=== PATIENT | female | born 1980 | race Caucasian/White ===

== ENCOUNTER 2023-08-11 10:09 | Observation (INO) | payer OTHER, SELFPAY ==
[2023-08-11 11:27] VITALS: BP 145/91; PULSE 92; RESP 16; TEMP 36.7; O2SAT 99; BMI 24.4
--- NOTE | 2023-08-11 12:16 | XR_ITS ---
The [address] [address] Patient Name: KRISTINE MADDEN MRN: [id number] date: 1980 Sex: F Assigned Patient Location: [place] Current Patient Location: MS Accession/Order Number: [id number] Exam Date: 08/11/2023 13:00 Report Date: 08/11/2023 13:44 At the request of: ARLETH ACHARYA Procedure: XR abdomen 1V EXAMINATION: XR abdomen 1V HISTORY: kidney stone protocol COMPARISON: No relevant comparison available. FINDINGS: KIDNEY/URETER - RIGHT: No visible renal or ureteral calcifications. KIDNEY/URETER - LEFT: No visible renal or ureteral calcifications. PELVIS: No visible ureteral calcifications. Any visible calcifications favor phleboliths. BOWEL: No abnormal dilation or deviation. Large amount of stool throughout the colon BONES: No acute abnormality. OTHER: Right lower quadrant neurostimulator device. No abnormal gaseous collections. XR/XR abdomen 1V IMPRESSION: No definite urinary tract calculi Electronically authenticated by: CARISSA JOHN Date: 08/11/2023 13:44
[2023-08-11] MEDS: HYOSCYAMINE SULFATE 0.125 MG TAB.SUBL SL (13:28)
[2023-08-11] MEDS: ONDANSETRON 4 MG RAPDIS TABLET PO (13:28)
[2023-08-11] MEDS: ACETAMINOPHEN 500 MG TABLET 1000 MG PO (13:28)
[2023-08-11] MEDS: TRAMADOL HCL 50 MG TABLET PO (13:28)
[2023-08-11] MEDS: 0.9 % SODIUM CHLORIDE 1,000 ML 1000 ML IV ×2 (13:28→14:32)
[2023-08-11 13:35] LABS: BUN Creatinine Ratio 17.9; Calcium 8.9 mg/dL (8.5-10.1); Carbon Dioxide 24.8 mmol/L (21.0-32.0); Chloride 102 mmol/L (98-107); Estimated GFR (African America >60 (>=60); Estimated GFR (Non-African Ame >60 (>=60); Glucose 75 mg/dL (74-106); Potassium 3.8 mmol/L (3.5-5.1); Sodium 138 mmol/L (136-145)
[2023-08-11 13:44] LABS: Lactate/Lactic Acid 0.6 mmol/L (0.4-2.0)
[2023-08-11 13:52] LABS: Basophils Percent Auto 0.3 % (0.2-2.0); Eosinophils Absolute Auto 0.1 10^3/uL (0.0-0.7); Eosinophils Percent Auto 0.8 % (0.9-7.0); Hematocrit 38.2 % (36.0-48.0); Hemoglobin 12.1 g/dL (12.0-16.0); Immature Granulocytes Abs Auto 0.01 10^3/uL (0.00-0.03); Immature Granulocytes Pct Auto 0.2 % (0.0-0.5); Lymphocytes Absolute Auto 2.6 10^3/uL (1.2-3.8); Lymphocytes Percent Auto 43.8 % (20.5-60.0); Mean Corpuscular HGB Conc 31.7 g/dL (29.9-35.2); Mean Corpuscular Hemoglobin 26.8 pg (26.7-34.0); Mean Corpuscular Volume 84.5 fL (81.0-99.0); Mean Platelet Volume 9.3 fL (9.5-13.5); Monocytes Absolute Auto 0.3 10^3/uL (0.3-0.8); Monocytes Percent Auto 4.2 % (1.7-12.0); Neutrophils Percent Auto 50.7 % (43.0-75.0); Platelet Count 220 10^3/uL (150-450); Red Blood Count 4.52 10^6/uL (4.20-5.40); Red Cell Distribution Width 21.3 % (11.0-15.0)
[2023-08-11] MEDS: LACTATED RINGER'S SOLUTION 1,000 ML 100 ML IV (14:32)
[2023-08-11] MEDS: HYDROMORPHONE HCL 0.5 MG/0.5 ML SYRINGE IV ×3 (14:33→23:57)
[2023-08-11] MEDS: PROMETHAZINE HCL 25 MG/ML VIAL IV ×2 (14:33→20:37)
[2023-08-11 14:37] VITALS: BP 138/87; PULSE 83; RESP 18; TEMP 36.6; O2SAT 98
[2023-08-11 17:00] VITALS: O2SAT 97
[2023-08-11 20:17] VITALS: O2SAT 97
[2023-08-11 21:16] VITALS: BP 138/94; PULSE 73; RESP 18; TEMP 36.4; O2SAT 97
[2023-08-11] MEDS: AMITRIPTYLINE HCL 50 MG TABLET PO (21:34)
[2023-08-11] MEDS: TIZANIDINE HCL 4 MG TABLET PO (21:34)
[2023-08-11 21:47] LABS: Bilirubin Urine NEGATIVE (NEGATIVE); Blood Urine NEGATIVE (NEGATIVE); Clarity Urine CLEAR (CLEAR); Color Urine YELLOW (YELLOW); Glucose Urine UA NEGATIVE (NEGATIVE); Ketones Urine NEGATIVE (NEGATIVE); Leukocyte Esterase Urine NEGATIVE (NEGATIVE); Nitrite Urine NEGATIVE (NEGATIVE); Protein Urine NEGATIVE (NEG/TRACE); Specific Gravity Urine >=1.030 (1.005-1.025); Urobilinogen Urine 0.2 EU/dL (0.2-1.0); pH Urine 5.5 (5.0-9.0)
[2023-08-11 22:06] LABS: Bacteria Urine NONE SEEN #/HPF (NONE SEEN); Cast Seen? NONE SEEN #/LPF (NONE SEEN); Crystals Seen? None Seen #/HPF (None Seen); Mucus Urine NONE SEEN (NONE SEEN); RBC Urine 0-2 #/HPF (0-2); Squamous Epithelial Cell Urine FEW #/LPF (NONE/RARE); WBC Urine NONE SEEN #/HPF (NONE SEEN)
[2023-08-12] MEDS: LACTATED RINGER'S SOLUTION 1,000 ML 100 ML IV
[2023-08-12] MEDS: PROMETHAZINE HCL 25 MG/ML VIAL IV ×2 (04:03→10:59)
[2023-08-12] MEDS: HYDROMORPHONE HCL 0.5 MG/0.5 ML SYRINGE IV ×2 (04:03→08:24)
[2023-08-12 05:54] VITALS: BP 150/72; PULSE 66; RESP 18; TEMP 36.4; O2SAT 98
[2023-08-12 05:57] LABS: Basophils Percent Auto 0.2 % (0.2-2.0); Eosinophils Absolute Auto 0.1 10^3/uL (0.0-0.7); Eosinophils Percent Auto 1.2 % (0.9-7.0); Hematocrit 34.4 % (36.0-48.0); Hemoglobin 10.7 g/dL (12.0-16.0); Immature Granulocytes Abs Auto 0.01 10^3/uL (0.00-0.03); Immature Granulocytes Pct Auto 0.2 % (0.0-0.5); Lymphocytes Absolute Auto 2.3 10^3/uL (1.2-3.8); Lymphocytes Percent Auto 55.1 % (20.5-60.0); Mean Corpuscular HGB Conc 31.1 g/dL (29.9-35.2); Mean Corpuscular Hemoglobin 26.7 pg (26.7-34.0); Mean Corpuscular Volume 85.8 fL (81.0-99.0); Monocytes Absolute Auto 0.2 10^3/uL (0.3-0.8); Monocytes Percent Auto 5.9 % (1.7-12.0); Neutrophils Absolute Auto 1.5 10^3/uL (1.4-6.5); Neutrophils Percent Auto 37.4 % (43.0-75.0); Platelet Count 160 10^3/uL (150-450); Red Blood Count 4.01 10^6/uL (4.20-5.40); White Blood Count 4.1 10^3/uL (4.0-11.0)
[2023-08-12 06:07] LABS: Anion Gap 7.7; BUN Creatinine Ratio 16.4; Calcium 8.3 mg/dL (8.5-10.1); Carbon Dioxide 29.1 mmol/L (21.0-32.0); Chloride 104 mmol/L (98-107); Estimated GFR (African America >60 (>=60); Estimated GFR (Non-African Ame >60 (>=60); Glucose 67 mg/dL (74-106); Potassium 3.8 mmol/L (3.5-5.1); Sodium 137 mmol/L (136-145)
--- NOTE | 2023-08-12 07:17 | P.PN_ITS ---
Progress Note: Subjective Subjective Interval history: Flank pain persisting. No further emesis but some nausea. Exam Constitutional Vital Signs, click to edit/add: Last Vital Signs Temp 97.5 F L 08/12/23 05:54 Pulse 66 08/12/23 05:54 Resp 18 08/12/23 05:54 BP 150/72 H 08/12/23 05:54 Pulse Ox 98 08/12/23 05:54 O2 Del Method Room Air 08/12/23 05:54 Documenting provider has reviewed patient's vital signs: yes Common normals: apparent distress (Moderate painful distress) HENMT Common normals: oral mucous membranes not moist Respiratory Common normals: normal respiratory effort, no retractions and no use of accessory muscles Cardio Common normals: regular rate and regular rhythm GI Common normals: Normal to inspection, nondistended, normoactive bowel sounds present Progress Note: Objective Labs Labs: Short CBC 08/11/23 08/12/23 Range/Units 13:46 05:14 WBC 6.0 4.1 (4.0-11.0) 10^3/uL Hgb 12.1 10.7 L (12.0-16.0) g/dL Hct 38.2 34.4 L (36.0-48.0) % Plt Count 220 160 (150-450) 10^3/uL BMP 08/11/23 08/12/23 12:55 05:14 Sodium 138 137 Potassium 3.8 3.8 Chloride 102 104 Carbon Dioxide 24.8 29.1 BUN 12.0 11.0 Creatinine 0.67 0.67 Glucose 75 67 L Calcium 8.9 8.3 L Urine 08/11/23 Range/Units 21:38 Urine Color Yellow (YELLOW) Urine Clarity Clear (CLEAR) Urine pH 5.5 (5.0-9.0) Ur Specific [place] >=1.030 A (1.005-1.025) Urine Protein Negative (NEG/TRACE) mg/dL Urine Glucose (UA) Negative (NEGATIVE) mg/dL Progress Note: A&P Assessment and Plan (1) Acute pain: (2) Dehydration: (3) Kidney stone: Plan Admitted with failed outpatient treatment of right sided 3 mm nephrolithiasis. This was found on CT scan at outside facility. KUB here repeated yesterday did not find the stone. With flank pain persisting we will check CT scan again here. Not great urine output so far. We will repeat fluid bolus. Significant dehydration on admission. Mild anemia-likely this is her baseline. History gastric bypass so she probably runs on the low side. Mild hypoglycemia this morning. No symptoms. Maintain observation status, patient with persisting pain. Stone evaluation as above. Maintain current medications.
--- NOTE | 2023-08-12 07:45 | CT_ITS ---
[address] [address] Patient Name: KRISTINE MADDEN MRN: [id number] date: 1980 Sex: F Assigned Patient Location: MS Current Patient Location: MS Accession/Order Number: [id number] Exam Date: 08/12/2023 07:41 Report Date: 08/12/2023 08:03 At the request of: ARLETH ACHARYA Procedure: CT abdomen pelvis wo con EXAMINATION: CT abdomen pelvis wo con HISTORY: kidney stone COMPARISON: 01/25/2023 TECHNIQUE: Axial, Coronal, and Sagittal images were created without IV contrast. Dose reduction techniques were achieved by using automated exposure control and/or adjustment of mA and/or kV according to patient size and/or use of iterative reconstruction technique. FINDINGS: LUNG BASES: No visible pulmonary or pleural disease. LIVER: No enlargement, atrophy, abnormal density, or significant focal lesion. BILIARY: Surgical clips from cholecystectomy PANCREAS: No lesion, fluid collection, ductal dilatation, or atrophy. SPLEEN: No enlargement or focal lesion. ADRENALS: No mass or enlargement. KIDNEYS: [Nonobstructing 5 mm nephrolith. No hydronephrosis or obstructing stones observed BOWEL/MESENTERY: Prior gastric surgery. Suture line left mid abdominal small bowel loops. Overall nonobstructive bowel gas pattern. Small amount of free pelvic fluid, nonspecific AORTA/VASCULAR: No aneurysm or dissection. RETROPERITONEUM: No mass or adenopathy. LYMPH NODES: No adenopathy. URINARY BLADDER: No visible focal wall thickening, lesion, or calculus. PELVIC ORGANS: Hysterectomy ABDOMINAL WALL: No mass or hernia. BONES: No bony lesion or fracture. OTHER: Right flank implanted neurostimulator device CT/CT abdomen pelvis wo con IMPRESSION: Left nonobstructing nephrolithiasis No obstructive uropathy Electronically authenticated by: CARISSA JOHN Date: 08/12/2023 08:03
[2023-08-12 07:54] VITALS: RESP 18
[2023-08-12 08:02] VITALS: O2SAT 96
[2023-08-12] MEDS: HYOSCYAMINE SULFATE 0.125 MG TAB.SUBL SL (08:24)
[2023-08-12] MEDS: 0.9 % SODIUM CHLORIDE 1,000 ML 1000 ML IV ×2 (08:34→09:51)
[2023-08-12 08:51] LABS: Alanine Aminotransferase 22 U/L (14-59); Albumin Globulin Ratio 1.1; Albumin Level 3.2 g/dL (3.4-5.0); Alkaline Phosphatase 88 U/L (46-116); Amylase 45 U/L (25-115); Aspartate Amino Transferase 21 U/L (15-37); Bilirubin Direct 0.1 mg/dL (0.0-0.2); Bilirubin Total 0.3 mg/dL (0.2-1.0); Total Protein 6.2 g/dL (6.4-8.2)
[2023-08-12 10:00] VITALS: O2SAT 98
--- NOTE | 2023-08-13 15:06 | CM.DCFOLLOWU ---
1st attempt discharge follow up call made by Christiano Moseley on 08/13/23, no answer at this time
== END 2023-08-12 11:25 | disposition home or self-care (01) ==
PROVIDERS: Admitting Provider Family Medicine; PCP Family Medicine; Visit Provider Family Medicine
DX: E86.0 Dehydration (principal); D64.9 Anemia, unspecified; E16.2 Hypoglycemia, unspecified; N20.0 Calculus of kidney; R10.9 Unspecified abdominal pain; Z98.84 Bariatric surgery status; Z90.710 Acquired absence of both cervix and uterus; Z96.652 Presence of left artificial knee joint; Z87.891 Personal history of nicotine dependence; Z79.899 Other long term (current) drug therapy; Z86.16 Personal history of COVID-19; I10 Essential (primary) hypertension
CPT/HCPCS: 36415; 74018; 74176; 80048; 80076; 81001; 82150; 83605; 83690; 85025; 87040; 87086; 94761; 96361; 96374; 96375; 96376; G0378; G0379; J1170

== ENCOUNTER 2023-08-18 12:50 | Outpatient (OUT) | payer OTHER, SELFPAY ==
--- NOTE | 2023-08-18 13:00 | US_ITS ---
The [place] [address] Patient Name: KRISTINE MADDEN MRN: [id number] date: 1980 Sex: F Assigned Patient Location: US Current Patient Location: US Accession/Order Number: [id number] Exam Date: 08/18/2023 13:01 Report Date: 08/18/2023 14:13 At the request of: ARLETH ACHARYA Procedure: US renal bladder US renal bladder, 08/18/2023 1:01 PM EST INDICATION: Kidney Stone N20.0 COMPARISON: CT of abdomen dated 08/12/2023 FINDINGS: The kidneys measure 9.5 x 4.2 x 5.2 cm on the right and 9.3 x 4.3 x 5 cm on the left side. No hydronephrosis is noted. Normal vascularity of kidneys. Stable nonobstructing nephrolithiasis in the inferior pole of the left kidney measuring 6.7 x 6.5 x 4 mm. The visualized portion of the urinary bladder is unremarkable. Nonspecific ureteral jet is noted. The urinary bladder wall measures 3.3 mm The prevoid volume of the urinary bladder is 417.8 cc. The post void residual was not recorded by technical error. US/US renal bladder IMPRESSION: Stable nephrolithiasis in the inferior pole of the left kidney. Electronically authenticated by: KHALIDA CESAR Date: 08/18/2023 14:13
--- OUTSIDE RECORDS SUMMARY | 2023-09-28 14:32 | XMS_ITS | CCD ---
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 Name Role Phone DASHAWN ZHANE W Unavailable Unavailable Hoy, Arleth Dax Unavailable Unavailable TAMEZ, ZHANE W Unavailable Unavailable Hoy, Arleth Dax Unavailable Unavailable TAMEZ, ZHANE W Unavailable Unavailable Hoy, Arleth Dax Unavailable Unavailable TAMEZ, ZHANE W Unavailable Unavailable Hoy, Arleth Dax Unavailable Unavailable TAMEZ, ZHANE W Unavailable Unavailable TamezZhane~ Unavailable Unavailabl e Hoy, Arleth Dax Unavailable Unavailable TAMEZ, ZHANE W Unavailable Unavailable Hoy, Arleth Dax Unavailable Unavailable Rima Sparrow Unavailable Unavailable Hoy, Arleth Dax Unavailable Unavailable Rima Sparrow Unavailable Unavailable Hoy, Arleth Dax Unavailable Unavailable TAMEZ, ZHANE W Unavailable Unavailable Hoy, Arleth Dax Unavailable Unavailable TAMEZZHANE MI Unavailable Unavailable TAMEZZHANE MI Unavailable Unavailable HOY, ARLETH M Unavailable Unavailable HOY, ARLTEH M Unavailable Unavailable HOY, ARLETH M Unavailable Unavailable DAX KINNEY Unavailable Unavailab le HOY, ARLETH M Unavailable Unavailable IVANAUSKAS, SAULIUS Unavailable Unavailable HOY, ARLETH M Unavailable Unavailable FARHAD CHAUDHRY Unavailable Unavailable Kevin Lane Referring Unavailable Kevin Lane Attending Unavailable Kevin Lane Admitting Unavailable HOY, ARLETH Primary Care Unavailable Kevin Lane Referring Unavailable Kevin Lane Attending Unavailable Kevin Lane Admitting Unavailable HOY, ARLETH Primary Care Unavailable Kevin Lane Attending Unavailable Kevin Lane Admitting Unavailable HOY, ARLETH Primary Care Unavailable HOY, ARLETH Referring Unavailable Gehling, Kevin Admitting Unavailable GehlingKevin Attending Unavailable HOY, ARLETH Primary Care Unavailable HOY, ARLETH Referring Unavailable HOY, ARLETH Primary Care Unavailable STEENHOFF, ARIADNE Admitting Unavailable STEENHOFF, ARIADNE Attending Unavailable SELF, REFERRED Referring Unavailable GeocingKevin Attending Unavailable Gehling, Kevin Admitting Unavailable NASIR THACKER Referring Unavailable HOY, ARLETH Primary Care Unavailable MadayingKevin Attending Unavailable Gehling, Kevin Admitting Unavailable HOY, ARLETH Primary Care Unavailable HOY, ARLETH Referring Unavailable Gehling, Kevin Referring Unavailable Gehling, Kevin Attending Unavailable Gehling, Kevin Admitting Unavailable SELF, REFERRED Primary Care Unavailable Geocing, Kevin Referring Unavailable GehlingPepeel Attending Unavailable Gehling, Kevin Admitting Unavailable SELF, REFERRED Primary Care Unavailable SELF, REFERRED Primary Care Unavailable FORSRAMIROY, JORDEN D Admitting Unavailable MARY GRACE, JORDEN D Attending Unavailable SELF, REFERRED Referring Unavailable SELF, REFERRED Primary Care Unavailable FORSHEY, JORDEN D Admitting Unavailable FORSHEY, JORDEN D Attending Unavailable SELF, REFERRED Referring Unavailable SELF, REFERRED Referring Unavailable MadayingKevin Attending Unavailable Gehling, Kevin Admitting Unavailable SELF, REFERRED Primary Care Unavailable Gehling, Kevin Admitting Unavailable Gehling, Kevin Attending Unavailable HOY, ARLETH Primary Care Unavailable HOY, ARLETH Referring Unavailable Gehling, Kevin Attending Unavailable Gehling, Kevin Admitting Unavailable SELF, REFERRED Primary Care Unavailable SELF, REFERRED Referring Unavailable SELF, REFERRED Primary Care Unavailable FORSHEY, JORDEN D Admitting Unavailable FORSRAMIROY, JORDEN D Attending Unavailable SELF, REFERRED Referring Unavailable SELF, REFERRED Primary Care Unavailable Madaying, Kevin Attending Unavailable Gehling, Kevin Admitting Unavailable SELF, REFERRED Referring Unavailable Tariky Arleth Primary Care Physician [phone] ROS[address] ., DR ORTIZ Consulting Unavailable NICK YOO Primary Care Unavailable HAWKINS ., DR ORTIZ Admitting Unavailable HAWKINS ., DR ORTIZ Attending Unavailable HOY ., DR REINOSO Consulting Unavailable HOY ., DR REINOSO Attending Unavailable HOY ., DR REINOSO Primary Care Unavailable HOY ., DR REINOSO Admitting Unavailable HAWKINS ., DR ORTIZ Admitting Unavailable HAWKINS ., DR ORTIZ Consulting Unavailable FREDO, NICK Primary Care Unavailable HAWKINS ., DR ORTIZ Attending Unavailable HAWKINS ., DR ORTIZ Consulting Unavailable HOY ., DR REINOSO Primary Care Unavailable PAY ., DR STILL Admalphonse Unavailable PAY ., DR STILL Attending Unavailable ZIEBER, DR RUSSELL Goss Consulting Unavailable PAY ., DR STILL Consulting Unavailable HAWKINS ., DR ORTIZ Admitting Unavailable HAWKINS ., DR ORTIZ Consulting Unavailable HAWKINS ., DR ORTIZ Attending Unavailable HOY ., DR REINOSO Primary Care Unavailable HAWKINS ., DR ORTIZ Consulting Unavailable FREDO, NICK Primary Care Unavailable HAWKINS ., DR ORTIZ Admalphonse Unavailable HAWKINS ., DR ORTIZ Attending Unavailable FREDO, NICK Primary Care Unavailable HOY ., DR REINOSO Attending Unavailable HOY ., DR REINOSO Admitting Unavailable FREDO, NICK Primary Care Unavailable HOY ., DR REINOSO Attending Unavailable HOY ., DR REINOSO Admalphonse Unavailable HOY ., DR REINOSO Admalphonse Unavailable HOY ., DR REINOSO Primary Care Unavailable HOY ., DR REINOSO Consulting Unavailable HOY ., DR REINOSO Attending Unavailable ZIEBER, DR RUSSELL Goss Consulting Unavailable FREDO, NICK Primary Care Unavailable FREDO, NICK Attending Unavailable FREDO, NICK Admitting Unavailable ZIEBER, DR RUSSELL Goss Consulting Unavailable FREDO, NICK Consulting Unavailable HOY ., DR REINOSO Consulting Unavailable HOY ., DR REINOSO Admalphonse Unavailable HOY ., DR REINOSO Primary Care Unavailable HOY ., DR REINOSO Attending Unavailable HOY ., DR REINOSO Admalphonse Unavailable HOY ., DR REINOSO Primary Care Unavailable HOY ., DR REINOSO Consulting Unavailable HOY ., DR REINOSO Attending Unavailable DENILSON AUSTIN Consulting Unavailable HOY ., DR REINOSO Consulting Unavailable HOY ., DR REINOSO Attending Unavailable HOY ., DR REINOSO Primary Care Unavailable HOY ., DR REINOSO Admalphonse Unavailable HAWKINS ., DR ORTIZ Admalphonse Unavailable HAWKINS ., DR ORTIZ Consulting Unavailable HAWKINS ., DR ORTIZ Attending Unavailable HOY ., DR REINOSO Primary Care Unavailable GAVINO PIERSON Consulting Unavailable NAZIA VASQUEZ Consulting Unavailable LONI ., ENEDINA Attending Unavailable LONI ., ENEDINA Admitting Unavailable HOY ., DR REINOSO Primary Care Unavailable ZIEBER, DR RUSSELL Goss Consulting Unavailable LONI ., ENEDINA Consulting Unavailable GENNA HEATON Attending Unavailable GENNA HEATON Admitting Unavailable PATRIZIA ., DR REINOSO Primary Care Unavailable GENNA HEATON Consulting Unavailable RONDA, VEDA Consulting Unavailable HOY ., DR REINOSO Primary Care Unavailable HOY ., DR REINOSO Admitting Unavailable HOY ., DR REINOSO Attending Unavailable HAWKINS ., DR ORTIZ Consulting Unavailable NICK YOO Primary Care Unavailable HAWKINS ., DR ORTIZ Admitting Unavailable HAWKINS ., DR ORTIZ Attending Unavailable JORDEN ECHOLS Consulting Unavailable MARAH CHATMAN Consulting Unavailable MD Arleth Acharya Primary Care Provider [phone] MD Arleth Acharya Referring Provider DO Calderón Attending Provider Osiris Calderón Admitting Unavail able Osiris Calderón Attending Unavail able Arleth Acharya Referring Unavailable Arleth Acharya Primary Care Unavailable JORDEN BRODY Attending Unavailable CARMEN, ARJUN Attending Unavailable MINER, ARJUN Attending Unavailable MINER, ARJUN Referring Unavailable MINER, ARJUN Attending Unavailable MINER, ARJUN Referring Unavailable ANGELARUKHSANA Attending Unavailable ALEYDA MIN Referring Unavailable MINER, ARJUN Referring Unavailable MINER, ARJUN Referring Unavailable JORDEN BRODY Referring Unavailable MINER, ARJUN Referring Unavailable MINER, ARJUN Attending Unavailable MINER, ARJUN Attending Unavailable MINER, ARJUN Attending Unavailable MANTDUSTY THOMAS Referring Unavailable MANTWILLIAM, DUSTY Referring Unavailable MINER, ARJUN Referring Unavailable KEVIN LANE Attending Unavailable JORDEN BRODY Attending Unavailable CARMEN, ARJUN Admitting Unavailable MINER, ARJUN Attending Unavailable ANGELA, RUKHSANA Attending Unavailable ANGELA, RUKHSANA Attending Unavailable MINER, ARJUN Attending Unavailable MINER, ARJUN Attending Unavailable Diana HAWKINS Attending Unavailable Arleth Acharya Referring Unavailable HAWKINS, Diana Goss Attending Unavailable HAWKINS, Diana Goss Attending Unavailable HAWKINS, Diana R Attending Unavailable HAWKINS, Diana Goss Attending Unavailable Allergies Allergy Classification Reported Allergen(s) Allergy Type Date of Onset Reaction(s) Facility (7 sources) ketorolac; Translations: [Toradol] Drug Allergy 05-29-20 15 Unknown (qualifier value) [facility] Repository (5 sources) meperidine; Translations: [Demerol HCl] Drug Allergy [facility] Repository (2 sources) Meperidine Drug Allergy 08-01-20 13 [facility] Repository (1 source) Desonide Drug Allergy [facility] Repository (3 sources) Ketorolac; Translations: [ketorolac] Drug Allergy 11-22-19 22 Unknown Reaction [facility] (3 sources) Meperidine; Translations: [meperidine] Drug Allergy 08-01-20 13 Unknown Reaction [facility] (1 source) Desonide; Translations: [DESONIDE] Drug Allergy 01-09-20 21 [facility] Repository (2 sources) Prochlorperazin e; Translations: [PROCHLORPERAZI NE] Drug Allergy 02-12-20 23 Hallucinations (finding) [facility] Repository (1 source) Prochlorperazin e; Translations: [Compazine] Drug Allergy [facility] Repository (1 source) No Known Medication Allergies; Translations: [No Known Medication Allergies] Propensity to adverse reactions (disorder) [facility] Repository Medications Current Medications Medication Drug Class(es) Dates Sig (Normalized) Sig (Original) acetaminophen 325 mg / HYDROcodone bitartrate 5 mg oral tablet (3 sources) Opioid Agonist Start: 05-27-2023 take 1 tablet by mouth twice daily Hydrocodone-Aceta minophen Active 1 TAB PO Twice daily May 27, 2023 12:00am Start: 07-27-2022 Wade 325 mg-5 mg oral tablet 1 tab(s), Oral, BID Pain 8-10, 20 tab(s), Refill(s) 0, [id number], 167, cm, 06/29/22 9:28:00 EDT, Height/Length Dosing, 69, kg, 06/29/22 9:28:00 EDT, Weight Dosing Start Date: 07/27/22 Status: Ordered Start: 06-29-2022 take 1 tablet by mary th every six hours Wade 325 mg-5 mg oral tablet tab(s), Oral, q6hr, Refill(s) 0 Start Date: 06/29/22 Status: Ordered amitriptyline hydrochloride 50 mg oral tablet (4 sources) Tricyclic Antidepressant Start: 05-27-2023 take 50 mg by mouth once daily at bedtime Amitriptyline Active 50 MG PO Daily at bedtime May 27, 2023 12:00am Start: 06-29-2022 take 1 mg by mouth o nce daily at bedtime amitriptyline 25 mg Tab mg tab(s), Oral, Once a day (at bedtime), Refills(s) 0 Start Date: 06/29/22 Status: Ordered calcium acetate (3 sources) Start: 06-29-2022 calcium acetate mg, Oral, Refills(s) 0 Start Date: 06/29/22 Status: Ordered calcium carbonate 1500 mg / cholecalciferol 200 unt oral tablet (1 source) Vitamin D Start: 05-27-2023 take 1 tablet by mouth once daily Calcium Carbonate-Vitamin D3 (Calcium + D) 600 mg-5 mcg (200 unit) Tablet Active 1 TAB PO Daily May 27, 2023 12:00am citalopram 40 mg oral tablet (2 sources) Serotonin Reuptake Inhibitor Start: 10-23-2014 take 40 mg by mouth once daily Celexa 40 mg, Oral, Daily, Refills(s) 0, Depression Start Date: 10/23/14 Status: Ordered metoclopramide 10 mg oral tablet (1 source) Dopamine-2 Receptor Antagonist Start: 05-27-2023 Metoclopramide Hcl (Reglan) 10 mg Tablet Active 10 MG PO As Directed May 27, 2023 12:00am Multivitamin (Multiple Vitamin) Tablet (1 source) Start: 05-27-2023 take 1 tablet by mouth once daily Multivitamin (Multiple Vitamin) Tablet Active 1 TAB PO Daily May 27, 2023 12:00am Multivitamin preparation (3 sources) Start: 06-29-2022 multivitamin Daily, Refill(s) 0 Start Date: 06/29/22 Status: Ordered oxyCODONE hydrochloride 5 mg oral tablet (1 source) Opioid Agonist Start: 09-13-2023 oxyCODONE 5 mg Tab Refills(s) 0 Start Date: 09/13/23 Status: Ordered pantoprazole 40 mg delayed release oral tablet (4 sources) Proton Pump Inhibitor Start: 05-27-2023 take 1 tablet by mouth once daily Pantoprazole (Protonix) 40 mg Tablet,Delayed Release (Dr/Ec) Active 40 MG PO Daily May 27, 2023 12:00am Start: 10-23-2014 take 40 mg by mouth once daily pantoprazole 40 mg, Oral, Daily, Refills(s) 0, Control of stomach acid Start Date: 10/23/14 Status: Ordered promethazine hydrochloride 25 mg oral tablet (4 sources) Phenothiazine Start: 05-27-2023 take 25 mg by mouth every four to six hours Promethazine Active 25 MG PO EVERY 4-6 HOURS May 27, 2023 12:00am Start: 06-29-2022 take 1 mg rectal rou te every six hours promethazine 25 mg Supp mg supp, Rectal, q6hr, Refills(s) 0 Start Date: 06/29/22 Status: Ordered sucralfate 1000 mg oral tablet (1 source) Aluminum Complex Start: 05-27-2023 take 1 tablet by mouth four times daily Sucralfate (Carafate) 1 gram Tablet Active 1 GM PO Four times daily May 27, 2023 12:00am SUMAtriptan 100 mg oral tablet (1 source) Serotonin-1b and Serotonin-1d Receptor Agonist Start: 09-13-2023 SUMAtriptan 100 mg Tab Refills(s) 0 Start Date: 09/13/23 Status: Ordered tiZANidine 4 mg oral tablet (4 sources) Central alpha-2 Adrenergic Agonist Start: 05-27-2023 take 8 mg by mouth once daily at bedtime Tizanidine Active 8 MG PO Daily at bedtime May 27, 2023 12:00am Start: 06-29-2022 take 1 mg by mouth t hree times daily Zanaflex 4 mg oral capsule mg cap(s), Oral, TID, Refills(s) 0 Start Date: 06/29/22 Status: Ordered vitamin b12 1 mg/ml injectable solution (4 sources) Vitamin B12 Start: 05-27-2023 inject 1000 ug by intramuscular injection every 30 days Cyanocobalamin (Vitamin B-12) Active 1000 MCG IM Q30D May 27, 2023 12:00am Start: 06-29-2022 Vitamin B12 Re fills(s) 0 Start Date: 06/29/22 Status: Ordered Completed/Discontinued Medications Medication Drug Class(es) Dates Sig (Normalized) Sig (Original) ferrous sulfate 325 mg oral tablet (1 source) Start: 05-27-2023 End: 05-28-2023 take 325 mg by mouth once daily Ferrous Sulfate Discontinued 325 MG PO Daily May 27, 2023 12:00am May 28, 2023 11:26am hyoscyamine sulfate 0.125 mg sublingual tablet (1 source) Start: 05-27-2023 End: 05-28-2023 take 0.125 mg under the tongue every six hours Hyoscyamine Sulfate Discontinued 0.125 MG SUBLINGUAL Q6H May 27, 2023 12:00am May 28, 2023 11:06am Problems Active Problems Problem Classification Problem Date Documented Da te Episodic/Chronic Abdominal pain (16 sources) Unspecified abdominal pain; Translations: [Abdominal pain] Onset: 06-13-2018 Episodic Anxiety disorders (4 sources) Anxiety; Translations: [Anxiety disorder, unspecified] Onset: 09-10-2022 06-26-2022 Chronic Calculus of urinary tract (14 sources) Calculus of kidney; Translations: [Kidney stone] Onset: 02-26-2018 Episodic Coagulation and hemorrhagic disorders (1 source) Hereditary factor VIII deficiency; 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] Onset: 06-28-2023 Chronic Complication of device; implant or graft (5 sources) Pain due to internal orthopedic prosthetic devices, implants and grafts, initial encounter; Translations: [PAIN DUE TO INTERNAL ORTHOPEDIC PROSTH DEV/GRFT, INIT] Onset: 06-01-2022 Episodic Complications of surgical procedures or medical care (1 source) Other complications of other bariatric procedure; Translations: [Other complications of other bariatric procedure] Onset: 06-28-2023 Episodic Deficiency and other anemia (1 source) Other iron deficiency anemias; Translations: [Other iron deficiency anemias] Onset: 06-28-2023 Episodic Essential hypertension (1 source) Essential (primary) hypertension; Translations: [ESSENTIAL PRIMARY HYPERTENSION] Onset: 01-27-2023 Chronic Genitourinary congenital anomalies (2 sources) Congenital occlusion of ureteropelvic junction; 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, unspecified] Onset: 08-05-2022 Chronic Genitourinary symptoms and ill-defined conditions (17 sources) Blood in urine; Translations: [Gross hematuria] Onset: 06-29-2022 Episodic Genitourinary symptoms and ill-defined conditions (1 source) Other microscopic hematuria; Translations: [Other microscopic hematuria] Onset: 02-26-2018 Mood disorders (4 sources) Depressive disorder; Translations: [Major depressive disorder, single episode, unspecified] Onset: 08-05-2022 06-26-2022 Chronic Mood disorders (1 source) Mood disorders; Translations: [DEPRESSION UNSPECIFIED] Onset: 01-27-2023 Nausea and vomiting (4 sources) Nausea with vomiting, unspecified; Translations: [Vomiting, unspecified] Onset: 01-25-2023 Episodic Osteoarthritis (7 sources) Unilateral primary osteoarthritis, left knee; Translations: [UNILATERAL PRIMARY OSTEOARTHRITIS, LEFT KNEE] Onset: 10-06-2021 Chronic Other aftercare (5 sources) Aftercare following joint replacement surgery; Translations: [AFTERCARE FOLLOWING JOINT REPLACEMENT SURGERY] Onset: 12-09-2021 Chronic Other aftercare (1 source) superintendent container terminal (current) use of aspirin; Translations: [DIGITAL MARKETING CONSULTANT (CURRENT) USE OF ASPIRIN] Onset: 06-03-2022 Episodic Other aftercare (2 sources) Other long-term (current) drug therapy; Translations: [OTHER DIGITAL MARKETING CONSULTANT (CURRENT) DRUG THERAPY] Onset: 08-12-2021 Episodic Other connective tissue disease (5 sources) Presence of left artificial knee joint; Translations: [PRESENCE OF LEFT ARTIFICIAL KNEE JOINT] Onset: 04-07-2022 Chronic Other connective tissue disease (3 sources) Presence of unspecified artificial knee joint; Translations: [PRESENCE OF UNSPECIFIED ARTIFICIAL KNEE JOINT] Onset: 03-24-2022 Chronic Other connective tissue disease (1 source) Muscle wasting and atrophy, not elsewhere classified, left lower leg; Translations: [MUSCLE WASTING AND ATROPHY, NEC, LEFT LOWER LEG] Onset: 04-07-2022 Episodic Other gastrointestinal disorders (1 source) Irritable bowel syndrome without diarrhea; Translations: [IRRITABLE BOWEL SYND W/O DIARRHEA] Onset: 01-27-2023 Chronic Other gastrointestinal disorders (1 source) Bariatric surgery status; Translations: [BARIATRIC SURGERY STATUS] Onset: 01-27-2023 Episodic Other nervous system disorders (2 sources) Complex regional pain syndrome I of left lower limb; Translations: [Complex regional pain syndrome i of left lower limb] Onset: 04-07-2023 Chronic Other nervous system disorders (2 sources) Other chronic postprocedural pain; Translations: [Other chronic postprocedural pain] Onset: 07-12-2022 Chronic Other nervous system disorders (2 sources) Other acute postprocedural pain; Translations: [Other acute postprocedural pain] Onset: 10-14-2017 Episodic Other non-traumatic joint disorders (1 source) Effusion, left knee; Translations: [EFFUSION, LEFT KNEE] Onset: 04-07-2022 Episodic Other nutritional; endocrine; and metabolic disorders (3 sources) Morbid obesity 10-24-2014 Chronic Other nutritional; endocrine; and metabolic disorders (2 sources) Morbid (severe) obesity due to excess calories; Translations: [Morbid (severe) obesity due to excess calories] Onset: 07-12-2022 Chronic Residual codes; unclassified (2 sources) Presence of other specified functional implants; Translations: [Presence of other specified functional implants] Onset: 06-01-2023 Chronic Residual codes; unclassified (1 source) Acquired absence of both cervix and uterus; Translations: [ACQUIRED ABSENCE BOTH CERVIX AND UTERUS] Onset: 01-27-2023 Episodic Residual codes; unclassified (1 source) Acquired absence of other specified parts of digestive tract; Translations: [ACQ ABSENCE OTH PART DIGESTV TRACT] Onset: 01-27-2023 Episodic Screening and history of mental health and substance abuse codes (2 sources) Personal history of nicotine dependence; Translations: [PERSONAL HISTORY OF NICOTINE DEPENDENCE] Onset: 06-01-2022 Episodic Sprains and strains (1 source) Strain of muscle, fascia and tendon of lower back, initial encounter; Translations: [Strain of muscle, fascia and tendon of lower back, initial encounter] Onset: 10-09-2018 Episodic Unclassified (1 source) C/O POST OP RECHECK - LEFT KNEE. Onset: 06-03-2022 Unclassified (1 source) C/O POST OP RECHECK - LEFT KNEE Onset: 06-03-2022 Unclassified (3 sources) Asymptomatic microscopic hematuria 06-29-2022 Unclassified (1 source) PERSONAL HISTORY OF COVID-19; Translations: [PERSONAL HISTORY OF COVID-19] Onset: 01-27-2023 Unclassified (4 sources) CONTACT W/AND (SUSP) EXPOS COVID-19; Translations: [CONTACT W/AND (SUSP) EXPOS COVID-19] Onset: 08-27-2022 Unclassified (1 source) COUGH, UNSPECIFIED; Translations: [COUGH, UNSPECIFIED] Onset: 09-24-2022 Unclassified (2 sources) Presence of neurostimulator; Translations: [Presence of neurostimulator] Onset: 05-04-2023 Urinary tract infections (4 sources) Urinary tract infection, site not specified; Translations: [UTI SITE NOT SPECIFIED] Onset: 01-21-2023 Episodic Viral infection (1 source) COVID-19; Translations: [COVID-19] Onset: 10-09-2022 Past or Other Problems Problem Classification Problem Date Documented Da te Episodic/Chronic Malaise and fatigue (1 source) Other fatigue; Translations: [OTHER FATIGUE] Onset: 10-07-2022 Episodic Other aftercare (3 sources) Encounter for other specified surgical aftercare; Translations: [ENCOUNTER FOR OTHER SPECIFIED SURGICAL AFTERCARE] Onset: 01-09-2022 Episodic Other non-traumatic joint disorders (6 sources) Pain in left knee; Translations: [PAIN IN LEFT KNEE] Onset: 06-03-2022 Episodic Other non-traumatic joint disorders (3 sources) Stiffness of left knee, not elsewhere classified; Translations: [STIFFNESS OF LEFT KNEE, NOT ELSEWHERE CLASSIFIED] Onset: 02-12-2022 Episodic Other non-traumatic joint disorders (1 source) Osteophyte, left knee; Translations: [OSTEOPHYTE, LEFT KNEE] Onset: 08-12-2021 Episodic Other upper respiratory disease (1 source) Nasal congestion; Translations: [NASAL CONGESTION] Onset: 09-24-2022 Episodic Other upper respiratory infections (1 source) Acute recurrent frontal sinusitis; Translations: [ACUTE RECURRENT FRONTAL SINUSITIS] Onset: 10-09-2022 Episodic Residual codes; unclassified (2 sources) Pain, unspecified; Translations: [Pain, unspecified] Onset: 04-28-2023 Episodic Unclassified (1 source) CONTACT W/AND (SUSP) EXPOS COVID-19; Translations: [CONTACT W/AND (SUSP) EXPOS COVID-19] Onset: 10-06-2022 Results Test Name Value Interpretation Reference Range Facil ity Lab Reportson 09-27-2023 Lab Reports [id number] IFF Normal [facility] OARRS Reporton 09-27-2023 OARRS Report [id number] TIFF [facility] Pre-Certification Formon Pre-Certification Form [id number] [facility] Provider Letteron 09-27-2023 Provider Letter (Inserted Image. Darleen ble to display) September 27, 2023 [place] [address] : 1980 To Whom It May Concern, Please excuse above patient from work. Date of Illness: From: 09/16/2023 To: 09/28/2023 May Return to Work On: 09/29/2023 Restrictions: No Restrictios Comments: _ Sincerely, [facility] [address] [place] [id number] [facility] Formson 09-22-2023 Forms [id number] FF [facility] RAD - MISCon 09-21-2023 RAD - MISC [id number] FF [facility] Provider Letteron 09-20-2023 Provider Letter (Inserted Image. Darleen ble to display) September 20, 2023 ELVIJAIRO MOORE [address] [place] [id number] : 1980 To Whom It May Concern, Please excuse above patient from work. Date of Illness: From: 09/16/23 To: 09/21/23 May Return to Work On: 09/22/23 Restrictions: N/A Comments: Patient may return to work 09/22/23. Patient had a surgical procedure done 09/16/[address] Diana Hawkins. Sincerely, [facility] at [facility] ECG 12-Leadon 09-17-2023 ECG 12-Lead [id number]#1.00T IFF [facility] Lab Reportson 09-17-2023 Lab Reports [id number]#1.00T IFF [facility] RAD - CT Reporton 09-17-2023 RAD - CT Report [id number]#1.00TIFF [facility] RAD - MISCon 09-17-2023 RAD - MISC [id number]#1.00TI FF [facility] RAD - Ultrasound Reporton RAD - Ultrasound Report [id number]#1.00TIFF [facility] Operative Reporton Operative Report [id number]#1.00TIFF [facility] ED Note-Physicianon 09-14-20 ED Note-Physician [id number] #1.00TIFF [facility] Insurance Correspondenceon 1 11-15-2022 Insurance Correspondence [id number]#1.00TIFF [facility] RAD - CT Reporton 09-14-2023 RAD - CT Report [id number]#1.00TIFF [facility] RAD - CT Report [id number]#1.00TIFF [facility] Ambulatory Visit Summaryon 1 11-14-2022 Ambulatory Visit Summary ELVI MOORE :1980 Visit Date:09/13/2023 Ambulatory Visit Instructions Your Diagnosis Kidney stone Gross hematuria Left flank pain Tests Performed Urnls Dip Stick Auto w/o Microscopy POC 29943 Your Care Team Attending Physician - ROSS GENTILE, Diana Goss Primary Care Physician - Arleth Acharya MD Referring Physician - Arleth Acharya MD This Is Your Medications List Contact prescribing physician if questions or concerns amitriptyline (amitriptyline 25 mg Tab) calcium acetate cyanocobalamin (Vitamin B12) multivitamin oxycodone (oxyCODONE 5 mg Tab) pantoprazole promethazine (promethazine 25 mg Supp) sumatriptan (SUMAtriptan 100 mg Tab) tizanidine (Zanaflex 4 mg oral capsule) Procedures Performed Cystoscopic removal of ureteric stent (08/27/2022), Cystoscopic insertion of ureteric stent (07/23/2022), Appendectomy, Arthroplasty of knee, Arthroscopy of knee, Cholecystectomy, Gastric bypass, Hysterectomy, Spinal cord stimulator trial, Tonsillectomy. Discharge Vitals Heart Rate (Peripheral) 64 Respiratory Rate 16 Blood Pressure 128/74 Height 167 cm Height 66 in Weight 70.5 kg Weight 155.1 lb BMI 25.28 What to do next You Need to Schedule the Following Appointments Follow Up with ROSS GENTILE, JAKE Engel When: Comments: sched cysto Where: [facility] [address] , [place] [address]- [phone] Medications What How Much When Instructions Unchanged amitriptyline (amitriptyline 25 mg Tab) By Mouth Once a day (at bedtime) Contact prescribing physician if questions or concerns Unchanged calcium acetate By Mouth Contact prescribing physician if questions or concerns Unchanged cyanocobalamin (Vitamin B12) Contact prescribing physician if questions or concerns Unchanged multivitamin Every day Contact prescribing physician if questions or concerns Unchanged oxycodone (oxyCODONE 5 mg Tab) Contact prescribing physician if questions or concerns Unchanged pantoprazole 40 Milligram By Mouth Every day Contact prescribing physician if questions or concerns Unchanged promethazine (promethazine 25 mg Supp) By rectum Every 6 hours Contact prescribing physician if questions or concerns Unchanged sumatriptan (SUMAtriptan 100 mg Tab) Contact prescribing physician if questions or concerns Unchanged tizanidine (Zanaflex 4 mg oral capsule) By Mouth 3 times a day Contact prescribing physician if questions or concerns Test Results Urnls Dip Stick Auto w/o Microscopy POC 58674 (09/13/2023) Bilirubin Urine Dipstick - Negative Blood Urine Dipstick - 2+ Moderate Glucose Urine Dipstick - Negative Ketones Urine Dipstick - Negative Leukocytes Urine Dipstick - Negative Nitrite Urine Dipstick - Negative Protein Urine Dipstick - Negative Specific [place]well Urine Dipstick - 1.025 Urine Appearance Urine Dipstick - Slightly cloudy Urine Color Urine Dipstick - Yellow Urobilinogen Urine Dipstick - Normal 0.2-1 EU/dl pH Urine Dipstick - 7 Allergies Compazine (Hallucinations) Demerol HCl Toradol (Unknown) Problems Ongoing - Any problem that you are currently receiving treatment for. Anxiety Asymptomatic microscopic hematuria Depression Extreme obesity Gross hematuria Kidney stone Left flank pain Patient Survey You may receive a survey via text or e-mail asking about your office visit. Please share your experience with us by completing your survey. We appreciate your feedback and thank you for choosing us for your care. Education Materials Cystoscopy Cystoscopy is a procedure that is used to help diagnose and sometimes treat conditions that affect the lower urinary tract. The lower urinary tract includes the bladder and the urethra. The urethra is the tube that drains urine from the bladder. Cystoscopy is done using a thin, tube-shaped instrument with a light and camera at the end (cystoscope). The cystoscope may be hard or flexible, depending on the goal of the procedure. The cystoscope is inserted through the urethra, into the bladder. Cystoscopy may be recommended if you have: ? Urinary tract infections that keep coming back. ? Blood in the urine (hematuria). ? An inability to control when you urinate (urinary incontinence) or an overactive bladder. ? Unusual cells found in a urine sample. ? A blockage in the urethra, such as a urinary stone. ? Painful urination. ? An abnormality in the bladder found during an intravenous pyelogram (IVP) or CT scan. Cystoscopy may also be done to remove a sample of tissue to be examined under a microscope (biopsy). Tell a health care provider about: ? Any allergies you have. ? All medicines you are taking, including vitamins, herbs, eye drops, creams, and ojdc-ylh-fthseug medicines. ? Any problems you or family members have had with anesthetic medicines. ? Any blood disorders you have. ? Any surgeries you have had. ? Any m (more content not included)... Normal [facility] Consent for Procedure/Surger yon 09-13-2023 Consent for Procedure/Surgery [id number]#1.00TIFF Normal [facility] 36on 09-08-2023 36 Patient seen in the ER for a large kidney stone. Was prescribed Oxycodone medication for pain discomfort. Patient would like to know if this will be ok for her to get from pharmacy. Please advise [phone]. Thank you Normal [facility] Consultation Noteon 08-23-20 Consultation Note [id number]#1.00TIFF Normal [facility] Lab Reportson 08-23-2023 Lab Reports [id number]#1.00 TIFF Normal [facility] Consultation Noteon 08-20-20 Consultation Note [id number]#1.00TIFF Normal [facility] Follow-Upon 08-19-2023 Follow-Up [id number] Madyson Moore 1980 F Date Provider Department Center 08/19/2023 ARJUN ROSE MP PAIN [facility] Family History Problem Relation Age of Onset Brain cancer Mother Breast cancer Sister Kidney cancer Maternal Grandmother Prostate cancer Paternal Grandfather Cancer Father Cancer Sister Family Status - Relation Status Age at Mother Sister Maternal Grandmother Paternal Grandfather Father Sister Level of Service:06081 [place] OFFICE/OUTPATIENT ESTABLISHED MOD [facility] 30-39 MIN Reason for Visit and Comments: Follow-up [111948] - Chronic Left Knee Pain Normal [facility] Follow-Upon 07-20-2023 Follow-Up [id number] Madyson Moore 1980 F Date Provider Department Center 07/20/2023 ARJUN ROSE MP PAIN [facility] Family History Problem Relation Age of Onset Brain cancer Mother Breast cancer Sister Kidney cancer Maternal Grandmother Prostate cancer Paternal Grandfather Cancer Father Cancer Sister Family Status - Relation Status Age at Mother Sister Maternal Grandmother Paternal Grandfather Father Sister Level of Service:11986 [place] OFFICE/OUTPATIENT ESTABLISHED MOD MDM 30-39 MIN Reason for Visit and Comments: Follow-up [038642] - Left knee pain Normal [facility] Orders Onlyon 07-07-2023 Orders Only [id number] Madyson Moore 1980 F Date Provider Department Center 07/07/2023 RUKHSANA ESPINOZA PAIN [facility] Family History Problem Relation Age of Onset Brain cancer Mother Breast cancer Sister Kidney cancer Maternal Grandmother Prostate cancer Paternal Grandfather Cancer Father Cancer Sister Family Status - Relation Status Age at Mother Sister Maternal Grandmother Paternal Grandfather Father Sister [facility] 36on 06-09-2023 36 Approving, but needs appt for additional refills. [facility] 36 Patient is cayla dsouza her Wade 5/325 refill, needs it before the weekend. Please and thank you so much. [facility] Follow-Upon 06-01-2023 Follow-Up [id number] Madyson Moore 1980 F Date Provider Department Center 06/01/2023 ARJUN ROSE MP PAIN [facility] Family History Problem Relation Age of Onset Brain cancer Mother Breast cancer Sister Kidney cancer Maternal Grandmother Prostate cancer Paternal Grandfather Cancer Father Cancer Sister Family Status - Relation Status Age at Mother Sister Maternal Grandmother Paternal Grandfather Father Sister Level of Service:13399 [place] OFFICE/OUTPATIENT ESTABLISHED LOW MDM 20-29 MIN () Reason for Visit and Comments: Med Management [[id number]] - Left Leg Pain No refills needed today [facility] Ferritinon 05-28-2023 Ferritin [Mass/Vol] 4.9 ng/mL Low 11.0-306.8 [facility] Comment on above: Result Comment: PERF ORMED BY: [facility] [address] [place] [address] PATHOLOGIST ACCOUNTS RECEIVABLE SPECIALIST MELISSA WAGNER M.D. Performed By: #### S CAN CBC, JANESSA, FE and TIBC #### [facility] [address] Iron and TIBC Profileon 05-11 % Iron Saturation 2.5 % Low 20-50 [facility] Comment on above: Performed By: #### S CAN CBC, JANESSA, FE and TIBC #### [facility] [address] [place] [id number] [place] Iron [Mass/Vol] 13 ug/dL Low 50-212 [facility] Comment on above: Performed By: #### S CAN CBC, JANESSA, FE and TIBC #### [address] Total Iron Binding Capacity 517 ug/dL High 255-450 [facility] Comment on above: Performed By: #### S CAN CBC, JANESSA, FE and TIBC #### [address] Transferrin [Mass/Vol] 369 mg/dL High 203-362 [facility] Comment on above: Performed By: #### S CAN CBC, JANESSA, FE and TIBC #### [address] Scan and CBCon 05-28-2023 Anisocytosis Ql (Bld) Marked Normal [facility] Comment on above: Performed By: #### S CAN CBC, JANESSA, FE and TIBC #### [address] Basophils (Bld) [#/Vol] 0.0 10*3/uL Normal 0.0-0.2 [facility] Comment on above: Performed By: #### S CAN CBC, JANESSA, FE and TIBC #### [address] Basophils/100 WBC (Bld) 0.3 % Normal . [facility] Comment on above: Performed By: #### S CAN CBC, JANESSA, FE and TIBC #### [address] Eosinophils (Bld) [#/Vol] 0.0 10*3/uL Normal 0.0-0.45 [facility] Comment on above: Performed By: #### S CAN CBC, JANESSA, FE and TIBC #### [address] Eosinophils/100 WBC (Bld) 0.6 % Normal . [facility] Comment on above: Performed By: #### S CAN CBC, JANESSA, FE and TIBC #### [address] Erythrocyte distribution wid th (RBC) [Ratio] 20.1 % High 11.9-15.3 [facility] Comment on above: Performed By: #### S CAN CBC, JANESSA, FE and TIBC #### [address] Hematocrit (Bld) [Volume fraction] 28.6 % Low 34.0-46.4 [facility] Comment on above: Performed By: #### S CAN CBC, JANESSA, FE and TIBC #### [address] Hemoglobin (Bld) [Mass/Vol] 8.9 g/dL Low 11.8-15. 4 [facility] Comment on above: Performed By: #### S CAN CBC, JANESSA, FE and TIBC #### [address] Hypochromasia Moderate Normal [facility] Comment on above: Performed By: #### S CAN CBC, JANESSA, FE and TIBC #### [address] Lymphocytes (Bld) [#/Vol] 2.6 10*3/uL Normal 1.00-4.8 [facility] Comment on above: Performed By: #### S CAN CBC, JANESSA, FE and TIBC #### [address] Lymphocytes/100 WBC (Bld) 37.7 % Normal . [facility] Comment on above: Performed By: #### S CAN CBC, JANESSA, FE and TIBC #### [address] MCH (RBC) [Entitic mass] 20.5 pg Low 24.7-34.3 [facility] Comment on above: Performed By: #### S CAN CBC, JANESSA, FE and TIBC #### [address] MCV (RBC) [Entitic vol] 65.8 fL Low 80-100 F [facility] Comment on above: Performed By: #### S CAN CBC, JANESSA, FE and TIBC #### [address] Mean Corpuscular HGB Conc 31.1 g/dL Low 32.0-35.0 [facility] Comment on above: Performed By: #### S CAN CBC, JANESSA, FE and TIBC #### [address] Microcytosis Marked Normal [facility] Comment on above: Performed By: #### S CAN CBC, JANESSA, FE and TIBC #### [address] Monocytes (Bld) [#/Vol] 0.4 10*3/uL Normal 0.0-0.8 [facility] Comment on above: Performed By: #### S CAN CBC, JANESSA, FE and TIBC #### [address] Monocytes/100 WBC (Bld) 6.3 % Normal . [facility] Comment on above: Performed By: #### S CAN CBC, JANESSA, FE and TIBC #### [address] Neutrophils (Bld) [#/Vol] 3.8 10*3/uL Normal 1.8-7.7 [facility] Comment on above: Performed By: #### S CAN CBC, JANESSA, FE and TIBC #### [address] Neutrophils/100 WBC (Bld) 55.1 % Normal . [facility] Comment on above: Performed By: #### S CAN CBC, JANESSA, FE and TIBC #### [address] NRBC% 0.1 /100{WBC} Normal 0-0.5 [facility] Comment on above: Performed By: #### S CAN CBC, JANESSA, FE and TIBC #### [address] Ovalocytes Slight Normal [facility] Comment on above: Performed By: #### S CAN CBC, JANESSA, FE and TIBC #### [address] Platelet Estimate Normal Normal Normal [facility] Comment on above: Performed By: #### S CAN CBC, JANESSA, FE and TIBC #### [address] Platelet mean volume (Bld) [Entitic vol] 8.7 fL Normal 6.3-10.7 [facility] Comment on above: Performed By: #### S CAN CBC, JANESSA, FE and TIBC #### [address] Platelet Morphology Normal Normal Normal [facility] Comment on above: Result Comment: PERF ORMED BY: [place] [address] PATHOLOGIST ACCOUNTS RECEIVABLE SPECIALIST MELISSA WAGNER M.D. Performed By: #### S CAN CBC, JANESSA, FE and TIBC #### [address] Platelets (Bld) [#/Vol] 218 10*3/uL Normal 150-450 [facility] Comment on above: Performed By: #### S CAN CBC, JANESSA, FE and TIBC #### [address] Poikilocytosis Slight Normal [facility] Comment on above: Performed By: #### S CAN CBC, JANESSA, FE and TIBC #### [address] RBC (Bld) [#/Vol] 4.34 10*6/uL Normal 3.60-5.00 [facility] Comment on above: Performed By: #### S CAN CBC, JANESSA, FE and TIBC #### [address] Schistocytes Slight Normal [facility] Comment on above: Performed By: #### S CAN CBC, JANESSA, FE and TIBC #### [facility] [address] [place] [id number] [facility] WBC (Bld) [#/Vol] 6.9 10*3/uL Normal 3.8-11.6 [facility] Comment on above: Performed By: #### S CAN CBC, JANESSA, FE and TIBC #### [facility] [address] [place] [id number] [facility] 29on 05-04-2023 29 Addended by: ARJUN MINER on: 05/04/2023 11:37 AM Modules accepted: Level of Service Normal [facility] Follow-Upon 05-04-2023 Follow-Up [id number] Madyson Moore ma 1980 F Date Provider Department Center 05/04/2023 274-ARJUN MINER PAIN [facility] Chart Close Cosign Required by: Arjun Miner MD[[id number]] Family History Problem Relation Age of Onset Brain cancer Mother Breast cancer Sister Kidney cancer Maternal Grandmother Prostate cancer Paternal Grandfather Cancer Father Cancer Sister Family Status - Relation Status Age at Mother Sister Maternal Grandmother Paternal Grandfather Father Sister Level of Service:68814 [place] POSTOP FOLLOW UP VISIT RELATED TO ORIGINAL PX Reason for Visit and Comments: Follow-up [844387] - S/P Jackson Implant 1 week post-op. Within the first few days her knee was 70% improvement in pain relief, while her incision site is still very sore at a 25% improvement since the procedure. [facility] HP History Of Present I llness Elvi Moore is a 42 y.o. female presenting with CRPS of the left lower extremity (knee) following complicated surgical course of knee replacement with multiple surgical revisions due to infection. She had a successful DRG SCS trial on 02/11/23 targeting L3 and L4 on the left side with >70 % pain relief in affected limb and improved function reduced sensitivity stating shes lived with misery for years and no relief better than what she felt with stimulation. She denies any changes to her history and is eager to have her permanent implant Past Medical History She has a past medical history of Anemia, Anxiety, Arthritis, Depression, GERD (gastroesophageal reflux disease), Kidney stone, Pancreatitis, Peptic ulcer, and PONV (postoperative nausea and vomiting). Surgical History She has a past surgical history that includes Appendectomy; Bariatric Surgery; Cholecystectomy; Hysterectomy; Knee surgery; Umbilical hernia repair; Knee Arthroplasty (Left, 06/01/2022); Knee Arthroplasty (Left, 10/30/2021); Tubal ligation; Cystoscopy; and Inner ear surgery. Social History She reports that she quit smoking about 6 years ago. Her smoking use included cigarettes. She started smoking about 25 years ago. She has been exposed to tobacco smoke. She has never used smokeless tobacco. She reports current drug use. Drug: Hydrocodone. She reports that she does not drink alcohol. Family History Family History Problem Relation Name Age of Onset Brain cancer Mother Breast cancer Sister Kidney cancer Maternal Grandmother Prostate cancer Paternal Grandfather Cancer Father Tye Shearn Cancer Sister January Dayanara Allergies Toradol [ketorolac], Compazine [prochlorperazine], and Meperidine Medications Medications Prior to Admission Medication Sig Dispense Refill Last Dose acetaminophen (Tylenol) 500 mg tablet 1,000 mg every 4 (four) hours if needed. amitriptyline (Elavil) 50 mg tablet Take 50 mg by mouth at bedtime. calcium carbonate 600 mg calcium (1,500 mg) tablet Take 300 mg by mouth in the morning. cyanocobalamin, vitamin B-12, 1,000 mcg/mL kit Inject as directed every 30 (thirty) days. diclofenac (Voltaren) 1 % topical gel Apply 1 application. topically if needed in the morning, at noon, in the evening, and at bedtime. TO LEFT KNEE ferrous sulfate 325 (65 Fe) MG tablet every 12 (twelve) hours. HYDROcodone-acetaminophen (Wade) 5-325 mg tablet Take 1 tablet by mouth every 12 (twelve) hours if needed for severe pain (8-10 pain score). 60 tablet 0 hyoscyamine 0.125 mg dissolvable tablet every 6 (six) hours. Not Taking metoclopramide (Reglan) 10 mg tablet every 4 (four) hours. Not Taking multivitamin (Theragran-M) 9 mg iron-400 mcg tablet Take 1 tablet by mouth in the morning. ondansetron ODT (Zofran-ODT) 4 mg disintegrating tablet Take 4 mg by mouth every 8 (eight) hours if needed. pantoprazole (ProtoNix) 40 mg EC tablet Take 40 mg by mouth in the morning and at bedtime. promethazine (Phenergan) 25 mg tablet Take 25 mg by mouth every 6 (six) hours if needed for nausea or vomiting. sucralfate (Carafate) 1 gram tablet Take 1 g by mouth if needed. tiZANidine (Zanaflex) 4 mg tablet if needed. Airway Assessment and ASA Score Review of Systems Last Recorded Vitals Visit Vitals BP (!) 134/99 Pulse 78 Temp 36.4 ???C (97.5 ???F) (Temporal) Resp 20 Ht 1.676 m (5' 6 ) Wt 71.6 kg (157 lb 13.6 oz) SpO2 100% BMI 25.48 kg/m??? OB Status Hysterectomy Smoking Status Former BSA 1.83 m??? Physical Exam Constitutional: Appearance: Normal appearance. She is normal weight. HENT: Head: Normocephalic and atraumatic. Cardiovascular: Rate and Rhythm: Normal rate. Musculoskeletal: General: Swelling and deformity present. Skin: Capillary Refill: Capillary refill takes less than 2 seconds. Comments: LLE weakness due to pain Neurological: Mental Status: She is alert. Psychiatric: Mood and Affect: Mood normal. Relevant Lab Results Lab Results Component Value Date NA 140 04/15/2023 K 4.3 04/15/2023 CL 106 04/15/2023 CO2 27 04/15/2023 BUN 12 04/15/2023 CREATININE 0.76 04/15/2023 GLUCOSE 64 (L) 04/15/2023 CALCIUM 9.2 04/15/2023 ANIONGAP 11 04/15/2023 EGFR 100.9 04/15/2023 BCR 15.8 04/15/2023 Relevant Imaging Results [place] [facility] Narrative: [place] [facility] HISTORY: Low back pain. COMPARISON: None. Impression: Reference air kerma 12.9 mGy. Fluoroscopic guidance provided without radiologist present. Please see details within procedure/operative note. Electronically signed: Ezio Roberts. Leads confirmed to be placed at Left L3 and L4 neuroforamen Assessment/Plan Principal Problem: Complex regional pain syndrome type 1 of left lower extremity Proceed with DRG SCS implant stage 2 RTC 7-10 days post op visit Post op antibiotics 5 days Short rx for pain meds will be given Arjun Miner MD [facility] OPNOTEon 04-28-2023 OPNOTE INSERTION, PULSE GEN ERATOR, SPINAL CORD STIMULATOR Operative Note Date: 04/28/2023 Location: [facility] OR Name: Elvi Moore, : 1980, Diagnosis Pre-op Diagnosis * Complex regional pain syndrome type 1 of left lower extremity [G90.522] Post-op Diagnosis * Complex regional pain syndrome type 1 of left lower extremity [G90.522] Procedures INSERTION, PULSE GENERATOR, SPINAL CORD STIMULATOR 35920 - [place] INSJ/RPLCMT SPI NPGR DIR/INDUXIVE COUPLING [place] PRQ IMPLTJ NSTIM ELECTRODE ARRAY EPIDURAL [07892] [place] ELEC ADITYA IMPLT NPGT CPLX SP/PN PRGRMG [13666] Surgeons * Arjun Miner - Primary Procedure Summary Anesthesia: Monitor Anesthesia Care ASA: III Estimated Blood Loss: 10 mL Implants Type Name Action Serial No. SLIMTIP DRG Explanted [id number] SLIMTIP DRG Implanted [id number] PROCLAIM DRG Implanted [id number] SLIMTIP DRG Implanted [id number] Staff: Business Continuity Coordinator: Phillip Meyer RN Scrub Person: Mercy Duarte Indications: Elvi Moore is an 42 y.o. female who is having surgery for Complex regional pain syndrome type 1 of left lower extremity [G90.522]. Procedure Details: The patient was seen in the preoperative area. The risks, benefits, complications, treatment options, non-operative alternatives, expected recovery and outcomes were discussed with the patient. The possibilities of reaction to medication, pulmonary aspiration, injury to surrounding structures, bleeding, recurrent infection, the need for additional procedures, failure to diagnose a condition, and creating a complication requiring transfusion or operation were discussed with the patient. The patient concurred with the proposed plan, giving informed consent. The site of surgery was properly noted/marked if necessary per policy. The patient has been actively warmed in preoperative area. Preoperative antibiotics have been ordered and given within 1 hours of incision. Venous thrombosis prophylaxis have been ordered including bilateral sequential compression devices ? OPERATIVE PROCEDURE: Elvi Moore was brought to the operating room. Standard ASA monitors placed prior to induction of GETA. Uneventful intubation and patient turned prone on OR table with all pressure points padded. She was prepped and draped in the usual sterile fashion using chloroprep x2. With fluoroscopic guidance the location of the desired entry sites for placement of the percutaneous leads were identified and local anesthetic consisting of 1 % Lidocaine with 0.25 % bupivacaine was injected subcutaneously over the area. A stab incision made for entry of A 14G 4.5 inch delivery needle was inserted via a contralateral approach toward the midline from 1.5 levels below the target level. The needle was slowly advanced in a 45-degree angle down towards the ligamentum flavum. Once the ligamentum flavum was reached, at the interspace below the target level, a loss of resistance syringe was attached. The needle was slowly advanced into the dorsal epidural space. After loss of resistance wasnoted, negative aspiration for blood or CSF confirmed. A 22 cm curved delivery sheath was introduced along with a flexible guidewire which was advanced under continuous fluoroscopic guidance to the superior portion of the LEFT L3 foramen. The guidewire was removed. Then a 22 cm curved delivery sheath along with slim tip implant lead was advanced under continuous fluoroscopic guidance within the epidural space under the pedicle and out the superior portion of the LEFT L3 foramen without resistance. Positioning was confirmed with AP and lateral imaging with the goal of placing two electrode contacts under the pedicle. The delivery sheath was retracted and impedance was tested. Two anchoring loops, one superior and one inferior, were formed by manipulation of the delivery sheath and advancement of the lead wire under continuous fluoroscopic guidance. Finally the delivery sheath was removed. Additional leads were placed at LEFT L4 neuroforamen following the above procedure with the need to use an additional lead due to hardware failure of delivery sheath and slim tip lead. ? A pocket site was identified just below the RIGHT iliac crest. Local anesthetic was administered in the region and a approx 4 centimeter incision was made. A subcutaneous pocket was then created with a blunt dissection technique for placement of the implantable pulse generator. Lead tunneling was then done between the lead and the pocket site after the administration of additional local anesthetic subcutaneously. The tunneling tool with a wedged tip attachment was introduced subcutaneously from the pocket and guided to each lead incision. The leads were inserted into the tunneling catheter and advanced to the pocket site. The leads were then connected into the implantable pulse generator and the screws were tightened with the hexwrench. The generator was then introduced (more content not included)... Normal [facility] POCT GLUCOSE METER UNSOLICIT ED RESULTSon 04-28-2023 Glucose [Mass/Vol] 88 mg/dL Normal 70-105 [facility] Comment on above: Order Comment: Waive d Testing in the ED is performed under the ED CLIA certificate #[id number]. Result Comment: ngro bronwyn Performed By: #### L [id number] ####[facility] [place] [address] BASIC METABOLIC PANELon Anion gap [Moles/Vol] 11 mmol/L Normal 7-20 [facility] Comment on above: Performed By: #### L [id number] #### [facility] [address] [place] [address] Calcium [Mass/Vol] 9.2 mg/dL Normal 8.6-10.3 [facility] Comment on above: Performed By: #### L [id number] #### [facility] [address] [place] [address] Chloride [Moles/Vol] 106 mmol/L Normal 98-107 [facility] Comment on above: Performed By: #### L [id number] #### [facility] ([facility]) [address] [place] [address] CO2 [Moles/Vol] 27 mmol/L Normal 21-31 [facility] Comment on above: Performed By: #### L [id number] #### [facility] ([facility]) [address] [place] [address] Creatinine [Mass/Vol] 0.76 mg/dL Normal 0.60-1.20 [facility] Comment on above: Performed By: #### L [id number] #### [facility] ([facility]) [address] [place] [address] GLOMERULAR FILTRATION RATE ML/MIN/1.73 SQ M.PREDICTED 100.9 mL/min/1.73m*2 Normal >60.0 [facility] Comment on above: Result Comment: The [facility]???s estimated glomerular filtration rate (eGFR) will no longer include consideration of race in its calculation. The National Kidney Foundation???s eGFR Task Force developed new recommendations for the estimation of the glomerular filtration rate in the [place] They recommend immediate implementation of the new equation refit without the race variable in all laboratories because the calculation does not include race. In addition to not including race in the calculation and reporting, it included diversity in its development, and has acceptable performance characteristics and potential consequences that do not disproportionately affect any one group of individuals. Performed By: #### L [id number] #### [facility] ([facility]) [address] [place] [address] Glucose [Mass/Vol] 64 mg/dL Low 70-100 [facility] Comment on above: Performed By: #### L [id number] #### [facility] ([facility]) [address] [place] [address] Potassium [Moles/Vol] 4.3 mmol/L Normal 3.5-5.1 [facility] Comment on above: Performed By: #### L [id number] #### [facility] ([facility]) [address] [place] [address] Sodium [Moles/Vol] 140 mmol/L Normal 136-145 [facility] Comment on above: Performed By: #### L [id number] #### [facility] ([facility]) [address] [place] [address] Urea nitrogen [Mass/Vol] 12 mg/dL Normal 7-25 [facility] Comment on above: Performed By: #### L [id number] #### [facility] ([facility]) [address] [place] [address] UREA NITROGEN/CREATININE (MA SS RATIO) IN SER/PLAS 15.8 Normal [facility] Comment on above: Performed By: #### L [id number] #### [facility] ([facility]) [address] [place] [address] CBC WITH AUTO DIFFERENTIALon 07-06-2023 Erythrocyte distribution wid th (RBC) [Ratio] 17.9 % High 11.5-15.0 [facility] Comment on above: Performed By: #### L [id number] #### [facility] ([facility]) [address] [place] [address] ERYTHROCYTE MEAN CORPUSCULAR HEMOGLOBIN CONCENTRATION (G/DL) BY AUTOMATED 28.7 g/dL Low 32.0-35.0 [facility] Comment on above: Performed By: #### L [id number] #### [facility] ([facility]) [address] [place] [address] Hematocrit (Bld) [Volume fraction] 31.0 % Low 36.0-48.0 [facility] Comment on above: Performed By: #### L [id number] #### [facility] ([facility]) [address] [place] [address] Hemoglobin (Bld) [Mass/Vol] 8.9 g/dL Low 12.0-15. 0 [facility] Comment on above: Performed By: #### L [id number] #### [facility] ([facility]) [address] [place] [address] MCH (RBC) [Entitic mass] 20.0 pg Low 27.0-33.0 [facility] Comment on above: Performed By: #### L [id number] #### [facility] ([facility]) [address] [place] [address] MCV (RBC) [Entitic vol] 69.5 fL Low 82.0-98.0 U [facility] Comment on above: Performed By: #### L [id number] #### [facility] ([facility]) [address] [place] [address] NRBC (PER 100 WBCS) BY AUTOM ATED COUNT 0.0 % Normal 0 [facility] Comment on above: Performed By: #### L [id number] #### [facility] [address] [place] [address] PLATELETS (10*3/UL) IN BLOOD AUTOMATED COUNT 294 10*3/uL Normal 150-400 [facility] Comment on above: Performed By: #### L [id number] #### [facility] ([facility]) [address] [place] [id number] RBC (Bld) [#/Vol] 4.46 10*6/uL Normal 3.80-5.00 [facility] Comment on above: Performed By: #### L [id number] #### [facility] ([facility]) [address] [place] [id number] WBC (Bld) [#/Vol] 4.65 10*3/uL Normal 4.00-10.60 [facility] Comment on above: Performed By: #### L [id number] #### [facility] ([facility]) [address] [place] [id number] Labon 04-15-2023 Lab [id number] Modesto Mooreat ma 1980 F Date Provider Department Center 04/15/2023 [id number] MP LAB RESOURCE MP DRAW Medical [facility] Family History Problem Relation Age of Onset Brain cancer Mother Breast cancer Sister Kidney cancer Maternal Grandmother Prostate cancer Paternal Grandfather Cancer Father Cancer Sister Family Status - Relation Status Age at Mother Sister Maternal Grandmother Paternal Grandfather Father Sister Normal [facility] MANUAL DIFFERENTIALon 2022 ANISOCYTOSIS PRESENCE IN BLO OD BY LIGHT MICROSCOPY Moderate Normal [facility] Comment on above: Performed By: #### L [id number] #### [facility] [address] [place] [address] BASOPHILS (10*3/UL) IN BLOOD BY CALCULATION 0.01 10*3/uL Normal 0.00-0.20 [facility] Comment on above: Performed By: #### L [id number] #### [facility] ([facility]) [address] [place] [id number] BASOPHILS/100 LEUKOCYTES IN BLOOD BY AUTOMATED COUNT 0.2 % Normal 0.0-1.0 [facility] Comment on above: Performed By: #### L [id number] #### [facility] ([facility]) [address] [place] [address] EOSINOPHILS (10*3/UL) IN BLOOD BY CALCULATION 0.06 10*3/uL Normal 0.00-0.50 [facility] Comment on above: Performed By: #### L [id number] #### [facility] ([facility]) [address] [place] [address] EOSINOPHILS/100 LEUKOCYTES I N BLOOD BY AUTOMATED COUNT 1.3 % Normal 0.0-6.0 [facility] Comment on above: Performed By: #### L [id number] #### [facility] ([facility]) [address] [place] [address] HYPOCHROMIA (PRESENCE) IN BL OOD BY LIGHT MICROSCOPY Slight Normal [facility] Comment on above: Performed By: #### L [id number] #### [facility] ([facility]) [address] [place] [address] IMMATURE GRANULOCYTES (10*3/UL) IN BLOOD BY CALCULATION 0.01 10*3/uL Normal 0.00-0.20 [facility] Comment on above: Performed By: #### L [id number] #### [facility] ([facility]) [address] [place] [address] IMMATURE GRANULOCYTES/100 LEUKOCYTES IN BLOOD BY AUTOMATED COUNT 0.2 % Normal 0.0-1.0 [facility] Comment on above: Performed By: #### L [id number] #### [facility] ([facility]) [address] [place] [address] LYMPHOCYTES (10*3/UL) IN BLOOD BY CALCULATION 1.36 10*3/uL Normal 1.20-4.00 [facility] Comment on above: Performed By: #### L [id number] #### [facility] ([facility]) [address] [place] [address] LYMPHOCYTES/100 LEUKOCYTES I N BLOOD BY AUTOMATED COUNT 29.2 % Normal 20.0-45.0 [facility] Comment on above: Performed By: #### L [id number] #### [facility] ([facility]) [address] [place] [address] MICROCYTES (PRESENCE) IN BLO OD BY LIGHT MICROSCOPY Slight Normal [facility] Comment on above: Performed By: #### L [id number] #### [facility] ([facility]) [address] [place] [address] MONOCYTES (10*3/UL) IN BLOOD BY CALCUATION 0.33 10*3/uL Normal 0.10-1.00 [facility] Comment on above: Performed By: #### L [id number] #### [facility] ([facility]) [address] [place] [address] MONOCYTES/100 LEUKOCYTES IN BLOOD BY AUTOMATED COUNT 7.1 % Normal 5.0-12.0 [facility] Comment on above: Performed By: #### L [id number] #### [facility] ([facility]) [address] [place] [address] NEUTROPHILS (10*3/UL) IN BLO OD BY CALCULATION 2.9 10*3/uL Normal 1.6-7.6 [facility] Comment on above: Performed By: #### L [id number] #### [facility] ([facility]) [address] [place] [address] NEUTROPHILS/100 LEUKOCYTES I N BLOOD BY AUTOMATED COUNT 62.0 % Normal 40.0-72.0 [facility] Comment on above: Performed By: #### L [id number] #### [facility] ([facility]) [address] [place] [address] POIKILOCYTOSIS (PRESENCE) IN BLOOD BY LIGHT MICROSCOPY Slight Normal [facility] Comment on above: Performed By: #### L [id number] #### [facility] ([facility]) [address] [place] [address] POLYCHROMASIA IN BLOOD BY LI GHT MICROSCOPY Slight Normal [facility] Comment on above: Performed By: #### L [id number] #### [facility] ([facility]) [address] [place] [address] MRSA/MSSA DNA NASALon 2022 MRSA DNA Negative Normal Negative [facility] Comment on above: Order Comment: Testi ng methodology is an automated qualitative in vitro diagnostic test for the directdetection and differentiation of Staphylococcus aureus (SA) DNA and methicillin-resistant Staphylococcus aureus (MRSA) DNA from nasal swabs in patients at risk for nasal colonization. The test utilizes real-time polymerase chain reaction (PCR) for the amplification of MRSA/SA DNA and fluorogenic target-specific hybridization probes for the detection of the amplified DNA. A negative result does not preclude nasal colonization. Performed By: #### L [id number] #### [facility] ([facility]) [address] [place] [address] MSSA DNA Negative Normal Negative [facility] Comment on above: Order Comment: Testi ng methodology is an automated qualitative in vitro diagnostic test for the directdetection and differentiation of Staphylococcus aureus (SA) DNA and methicillin-resistant Staphylococcus aureus (MRSA) DNA from nasal swabs in patients at risk for nasal colonization. The test utilizes real-time polymerase chain reaction (PCR) for the amplification of MRSA/SA DNA and fluorogenic target-specific hybridization probes for the detection of the amplified DNA. A negative result does not preclude nasal colonization. Performed By: #### L [id number] #### [facility] ([facility]) [address] [place] [address] Orders Onlyon 04-15-2023 Orders Only [id number] Madyson Moore 1980 F Date Provider Department [place] 04/15/2023 RUKHSANA ESPINOZA [facility] Medical [facility] Family History Problem Relation Age of Onset Brain cancer Mother Breast cancer Sister Kidney cancer Maternal Grandmother Prostate cancer Paternal Grandfather Cancer Father Cancer Sister Family Status - Relation Status Age at Mother Sister Maternal Grandmother Paternal Grandfather Father Sister Normal [facility] PROTIME-INRon 04-15-2023 INR IN PPP BY COAGULATION ASSAY 0.99 Normal 0.90 -1.10 [facility] Comment on above: Result Comment: [facility] RECOMMENDED INR FO R WARFARIN THERAPY CONDITION INR PROPHYLAXIS OF VENOUS THROMBOSIS 2-3 (HIGH-RISK SURGERY) TREATMENT OF VENOUS THROMBOSIS 2-3 TREATMENT OF PULMONARY EMBOLISM 2-3 PREVENTION OF SYSTEMIC EMBOLISM: 2-3 ACUTE MYOCARDIAL INFARCTION TISSUE HEART VALVES VALVULAR HEART DISEASE ATRIAL FIBRILLATION RECURRENT SYSTEMIC EMBOLISM MECHANICAL HEART VALVE 2.5-3.5 FROM: ORAL ANTICOAGULANTS. MECHANISM OF ACTION, CLINICAL EFFECTIVENESS, AND OPTIMAL THERAPEUTIC RANGE. CHEST 1995;108:231S-246S. Performed By: #### L [id number] #### [facility] ([facility]) [address] [place] [address] PROTHROMBIN TIME (PT) IN PPP BY COAGULATION ASSAY 13.1 Seconds Normal 12.3-14.8 [facility] Comment on above: Performed By: #### L [id number] #### [facility] ([facility]) [address] [place] [address] Follow-Upon 03-17-2023 Follow-Up [id number] Madyson Moore 1980 F Date Provider Department Center 03/17/2023 RUKHSANA ESPINOZA [facility] PAIN [facility] Family History Problem Relation Age of Onset Brain cancer Mother Breast cancer Sister Kidney cancer Maternal Grandmother Prostate cancer Paternal Grandfather Cancer Father Cancer Sister Family Status - Relation Status Age at Mother Sister Maternal Grandmother Paternal Grandfather Father Sister Level of Service:[id number] [place] OFFICE/OUTPATIENT ESTABLISHED LOW MDM 20-29 MIN Reason for Visit and Comments: Follow-up [[id number]] Normal [facility] Orders Onlyon 03-05-2023 Orders Only [id number] Madyson Moore 1980 F Date Provider Department Center 03/05/2023 ARJUN ROSE MP PROC [facility] Family History Problem Relation Age of Onset Brain cancer Mother Breast cancer Sister Kidney cancer Maternal Grandmother Prostate cancer Paternal Grandfather Cancer Father Cancer Sister Family Status - Relation Status Age at Mother Sister Maternal Grandmother Paternal Grandfather Father Sister Normal [facility] Follow-Upon 02-18-2023 Follow-Up [id number] Madyson Moore 1980 F Date Provider Department Center 02/18/2023 170-RUKHSANA MILLER MP PAIN [facility] Family History Problem Relation Age of Onset Brain cancer Mother Breast cancer Sister Kidney cancer Maternal Grandmother Prostate cancer Paternal Grandfather Cancer Father Cancer Sister Family Status - Relation Status Age at Mother Sister Maternal Grandmother Paternal Grandfather Father Sister Level of Service:[id number] [place] OFFICE/OUTPATIENT ESTABLISHED LOW MDM 20-29 MIN Reason for Visit and Comments: Follow-up [[id number]] - TANYA Fajardo [facility] HPon 02-11-2023 HP History Of Present I llkenya Moore is a 42 y.o. female presenting with persistent left knee neuropathic pain. This patient is a 41-year-old female presents to clinic today to establish care for persistent, ongoing left knee pain. Patient is noted to have significant history of left knee pathology and subsequent surgeries. She is noted to have undergone 3 arthroscopic procedures as well as left TKA by Dr. Lane in 10/30/2021. Patient is noted to have limited range of motion in the months following her surgery and underwent manipulation under anesthesia on 02/12/2022. On 06/01/2022 she underwent left TKA revision. Patient reports initial pain relief following 05/2022 surgery. Reports soreness but gradual improvement in pain. Reports Covid in 09/2022 which resulted in significant pain thereafter. Patient has completed outpatient physical therapy he continues home exercise program at present. She is currently taking Tylenol for pain. She is history of Josefa-en-Y bypass and was told to avoid NSAIDs. Despite this she has tried ibuprofen for a few doses and reports significant upset stomach and is since discontinued. Patient reports persistent left knee pains which are described as sharp and aching character but also cramping which extends to the left martinez. She reports sensory abnormalities along the lateral aspect of the left knee as compared to the right. She reports persistent swelling and some weakness in the left knee as opposed to the right. Patient is currently utilizing a four-point cane for community ambulation. She has undergone left knee aspiration which was unremarkable. 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 Past History of Treatments: Patient has tried other professional care of: OPPT (last performed in 07/2022) Trialed medications: Ibuprofen Current Medications for Associated Pain: Wade 5/325, Amitriptyline 50 qhs Procedures performed previously: Lumbar sympathetic block 06/01/22 Left TKA revision (Dr. Lane) 02/12/22 Manipulation Under Anesthesia, left knee (Dr. Lane) 10/30/21 Left TKA (press fit, Dr. Lane) Imagin10/21/22 Left knee XR: Hardware in good alignment without evidence of failure The patient's current OARRS report has been checked and reviewed. Review of Systems Constitutional: Positive for activity change and fatigue. Negative for appetite change, chills, diaphoresis and fever. HENT: Negative. Respiratory: Negative. Cardiovascular: Positive for leg swelling. Negative for chest pain and palpitations. Gastrointestinal: Negative. Endocrine: Negative. Genitourinary: Negative. Musculoskeletal: Positive for arthralgias, gait problem, joint swelling and myalgias. Negative for back pain, neck pain and neck stiffness. Allergic/Immunologic: Negative. Neurological: Positive for weakness and numbness. Hematological: Negative. Psychiatric/Behavioral: Positive for sleep disturbance. ? Past Medical History She has a past medical history of Arthritis and Kidney stone. Surgical History She has a past surgical history that includes Appendectomy; Bariatric Surgery; Cholecystectomy; Hysterectomy; Knee surgery; Umbilical hernia repair; Knee Arthroplasty (Left, 06/01/2022); and Knee Arthroplasty (Left, 10/30/2021). Social History She reports that she quit smoking about 6 years ago. Her smoking use included cigarettes. She started smoking about 25 years ago. She has been exposed to tobacco smoke. She has never used smokeless tobacco. She reports current drug use. Drug: Hydrocodone. She reports that she does not drink alcohol. Family History Family History Problem Relation Name Age of Onset Brain cancer Mother Breast cancer Sister Kidney cancer Maternal Grandmother Prostate cancer Paternal Grandfather Cancer Father Tye Shearn Cancer Sister January Allergies Compazine [prochlorperazine], Desonide, Toradol [ketorolac], and Meperidine Medications (Not in a hospital admission) Airway Assessment and ASA Score: Mallampati:: II TM distance:: >3 FB Neck ROM:: Full ASA:: 2 Review of Systems Last Recorded Vitals Visit Vitals BP 124/75 Pulse 73 Resp 16 Ht 1.676 m (5' 6 ) Wt 70.8 kg (156 lb) SpO2 100% BMI 25.18 kg/m??? OB Status Hysterectomy Smoking Status Former BSA 1.82 m??? Physical Exam Relevant Lab Results Lab Results Component Value Date NA 141 02/08/2023 K 4.1 02/08/2023 CL 106 02/08/2023 CO2 29 02/08/2023 BUN 13 02/08/2023 CREATININE 0.72 02/08/2023 GLUCOSE 65 (L) 02/08/2023 CALCIUM 8.8 02/08/2023 ANIONGAP 10 02/08/2023 EGFR 107.7 02/08/2023 BCR 18.1 02/08/2023 Physical Exam Gen: NAD, sitting comfortably in chair. HEENT: EOMI CVS: extremities well perfused, no peripheral cyanosis in exposed areas Lung: normal effort of breathing, no accessory muscle usage MSK: RLE strength 5/5, LLE strength exam (more content not included)... Normal [facility] BASIC METABOLIC PANELon 05-0 Anion gap [Moles/Vol] 10 mmol/L Normal 7-20 [facility] [facility] Comment on above: Performed By: #### L [id number] #### [facility] ([facility]AKER) [address] [place] [address] Calcium [Mass/Vol] 8.8 mg/dL Normal 8.6-10.3 [facility] Comment on above: Performed By: #### L [id number] #### [facility] ([facility]) [address] [place] [address] Chloride [Moles/Vol] 106 mmol/L Normal 98-107 [facility] Comment on above: Performed By: #### L [id number] #### [facility] (BEAKER) [address] [place] [address] CO2 [Moles/Vol] 29 mmol/L Normal 21-31 [facility] Comment on above: Performed By: #### L [id number] #### [facility] ([facility]) [address] [place] [id number] Creatinine [Mass/Vol] 0.72 mg/dL Normal 0.60-1.20 [facility] Comment on above: Performed By: #### L [id number] #### [facility] ([facility]) [address] [place] [id number] GLOMERULAR FILTRATION RATE ML/MIN/1.73 SQ M.PREDICTED 107.7 mL/min/1.73m*2 Normal >60.0 [facility] Comment on above: Result Comment: The [facility]???s estimated glomerular filtration rate (eGFR) will no longer include consideration of race in its calculation. The National Kidney Foundation???s eGFR Task Force developed new recommendations for the estimation of the glomerular filtration rate in the [place] They recommend immediate implementation of the new equation refit without the race variable in all laboratories because the calculation does not include race. In addition to not including race in the calculation and reporting, it included diversity in its development, and has acceptable performance characteristics and potential consequences that do not disproportionately affect any one group of individuals. Performed By: #### L [id number] #### [facility] ([facility]) [address] [place] [id number] Glucose [Mass/Vol] 65 mg/dL Low 70-100 [facility] Comment on above: Performed By: #### L [id number] #### [facility] ([facility]) [address] [place] [id number] Potassium [Moles/Vol] 4.1 mmol/L Normal 3.5-5.1 [facility] Comment on above: Performed By: #### L [id number] #### [facility] ([facility]) [address] [place] [id number] Sodium [Moles/Vol] 141 mmol/L Normal 136-145 [facility] Comment on above: Performed By: #### L [id number] #### [facility] (BEAKER) [address] [place] [address] Urea nitrogen [Mass/Vol] 13 mg/dL Normal 7-25 [facility] Comment on above: Performed By: #### L [id number] #### [facility] (BEAKER) [address] [place] [address] UREA NITROGEN/CREATININE (MA SS RATIO) IN SER/PLAS 18.1 Normal [facility] Comment on above: Performed By: #### L [id number] #### [facility] (BEAKER) [address] [place] [address] CBCon 02-08-2023 Erythrocyte distribution wid th (RBC) [Ratio] 17.0 % High 11.5-15.0 [facility] Comment on above: Performed By: #### L [id number] ####[facility] [place] [address] ERYTHROCYTE MEAN CORPUSCULAR HEMOGLOBIN CONCENTRATION (G/DL) BY AUTOMATED 28.3 g/dL Low 32.0-35.0 [facility] Comment on above: Performed By: #### L [id number] ####[facility] [place] [address] Hematocrit (Bld) [Volume fraction] 31.8 % Low 36.0-48.0 [facility] Comment on above: Performed By: #### L [id number] ####[facility] (BEAKER)[address] [place] [address] Hemoglobin (Bld) [Mass/Vol] 9.0 g/dL Low 12.0-15. 0 [facility] Comment on above: Performed By: #### L [id number] ####[facility] (BEAKER)[address] [place] [address] MCH (RBC) [Entitic mass] 19.9 pg Low 27.0-33.0 [facility] Comment on above: Performed By: #### L [id number] ####[facility] [place] [id number] MCV (RBC) [Entitic vol] 70.4 fL Low 82.0-98.0 U [facility] Comment on above: Performed By: #### L [id number] ####[facility] (BEAKER)[address] [place] [id number] PLATELETS (10*3/UL) IN BLOOD AUTOMATED COUNT 259 10*3/uL Normal 150-400 [facility] Comment on above: Performed By: #### L [id number] ####[facility] [place] [id number] RBC (Bld) [#/Vol] 4.52 10*6/uL Normal 3.80-5.00 [facility] Comment on above: Performed By: #### L [id number] ####[facility] ([facility])[address] [place] [id number] WBC (Bld) [#/Vol] 5.59 10*3/uL Normal 4.00-10.60 [facility] Comment on above: Performed By: #### L [id number] ####[facility] ([facility])[address] [place] [id number] Labon 02-08-2023 Lab [id number] Madyson Moore ma 1980 F Date Provider Department [place] 02/08/2023 [id number] MP LAB RESOURCE MP DRAW [facility] Family History Problem Relation Age of Onset Brain cancer Mother Breast cancer Sister Kidney cancer Maternal Grandmother Prostate cancer Paternal Grandfather Cancer Father Cancer Sister Family Status - Relation Status Age at Mother Sister Maternal Grandmother Paternal Grandfather Father Sister Normal [facility] MRSA/MSSA DNA NASALon 2022 MRSA DNA Negative Normal Negative [facility] Comment on above: Performed By: #### L [id number] ####[facility] (BEAKER)[address] [place] [id number] MSSA DNA Negative Normal Negative [facility] Comment on above: Performed By: #### L [id number] ####[facility] (BEAKER)[address] [place] [address] Orders Onlyon 01-29-2023 Orders Only [id number] Madyson Moore 1980 F Date Provider Department Center 01/29/2023 RUKHSANA ESPINOZA MP PAIN [facility] Family History Problem Relation Age of Onset Brain cancer Mother Breast cancer Sister Kidney cancer Maternal Grandmother Prostate cancer Paternal Grandfather Cancer Father Cancer Sister Family Status - Relation Status Age at Mother Sister Maternal Grandmother Paternal Grandfather Father Sister Normal [facility] AMYLASEon 01-25-2023 Amylase [Catalytic activity/Vol] 64 U/L Normal 25- 115 [facility] Comment on above: Performed By: #### B MP, LIPA, YVETTE, LIVER #### [facility] [address] [place] [address] Dr. Idania Roldan CBC AUTO DIFFon 01-25-2023 BASO # 0.0 103/ul Normal 0.0-0.1 [facility] ostal Comment on above: Performed By: #### B MP, LIPA, YVETTE, LIVER #### [facility] [address] [address] [address] Idania Roldan Basophils/100 WBC (Bld) 0.3 % Normal 0.2-2.0 [facility] Comment on above: Performed By: #### B MP, LIPA, YVETTE, LIVER #### [facility] [address] [address] [address] Idania Roldan EO # 0.1 103/ul Normal 0.0-0.7 [facility] Comment on above: Performed By: #### B MP, LIPA, YVETTE, LIVER #### [facility] [address] [address] [address] Idania Roldan Eosinophils/100 WBC (Bld) 1.0 % Normal 0.9-7.0 [facility] Comment on above: Performed By: #### B MP, LIPA, YVETTE, LIVER #### [facility] [address] [address] [address] Idania Roldan Erythrocyte distribution wid th (RBC) [Ratio] 17.2 % Critically high 11.0-15.0 [facility] Comment on above: Performed By: #### B MP, LIPA, YVETTE, LIVER #### [facility] [address] [place] [address] Dr. Idania Roldan Hematocrit (Bld) [Volume fraction] 33.9 % Critically low 36.0-48.0 [facility] Comment on above: Performed By: #### B MP, LIPA, YVETTE, LIVER #### [facility] [address] [place] [address] Dr. Idania Roldan Hemoglobin (Bld) [Mass/Vol] 10.1 g/dL Critically low 12.0 -16.0 [facility] Comment on above: Performed By: #### B MP, LIPA, YVETTE, LIVER #### [facility] [address] [place] [address] Dr. Idania Roldan IG # 0.01 10e3/ul Normal 0.00-0.03 [facility] Comment on above: Performed By: #### B MP, LIPA, YVETTE, LIVER #### [facility] [address] [place] [address] Dr. Idania Roldan IG % 0.2 % Normal 0.0-0.5 [facility] Comment on above: Performed By: #### B MP, LIPA, YVETTE, LIVER #### [facility] [address] [place] [address] Dr. Idania Roldan LYMPH # 1.7 103/ul Normal 1.2-3.8 [facility] Comment on above: Performed By: #### B MP, LIPA, YVETTE, LIVER #### [facility] [address] [place] [address] Dr. Idania Roldan Lymphocytes/100 WBC (Bld) 27.9 % Normal 20.5-60.0 [facility] Comment on above: Performed By: #### B MP, LIPA, YVETTE, LIVER #### [facility] [address] [place] [address] Dr. Idania Roldan MANUAL DIFF REQ NO Normal [facility] Comment on above: Performed By: #### B MP, LIPA, YVETTE, LIVER #### [facility] [address] [place] [address] Dr. Idania Roldan MCH (RBC) [Entitic mass] 20.7 pg Critically low 26.7-34 .0 [facility] Comment on above: Performed By: #### B MP, LIPA, YVETTE, LIVER #### [facility] [address] [place] [address] Dr. Idania Roldan MCHC (RBC) [Mass/Vol] 29.8 g/dL Critically low 29.9-35.2 [facility] Comment on above: Performed By: #### B MP, LIPA, YVETTE, LIVER #### [facility] [address] [place] [address] Dr. Idania Roldan MCV (RBC) [Entitic vol] 69.6 fL Critically low 81.0-99. 0 [facility] Comment on above: Performed By: #### B MP, LIPA, YVETTE, LIVER #### [facility] [address] [place] [address] Dr. Idania Roldan MONO # 0.4 103/ul Normal 0.3-0.8 [facility] Comment on above: Performed By: #### B MP, LIPA, YVETTE, LIVER #### [facility] [address] [place] [address] Dr. Idania Roldan Monocytes/100 WBC (Bld) 7.1 % Normal 1.7-12.0 [facility] Comment on above: Performed By: #### B MP, LIPA, YVETTE, LIVER #### [facility] [address] [place] [address] Dr. Idania Roldan NEUT # 3.8 103/ul Normal 1.4-6.5 [facility] Comment on above: Performed By: #### B MP, LIPA, YVETTE, LIVER #### [facility] [address] [place] [address] Dr. Idania Roldan Neutrophils/100 WBC (Bld) 63.5 % Normal 43.0-75.0 [facility] Comment on above: Performed By: #### B MP, LIPA, YVETTE, LIVER #### [facility] [address] [address] [address] Idania Roldan Platelet mean volume (Bld) [Entitic vol] 9.3 fL Critically low 9.5-13.5 [facility] Comment on above: Performed By: #### B MP, LIPA, YVETTE, LIVER #### [facility] [address] [place] [address] Dr. Idania Roldan PLT 294 103/ul Normal 150-450 [facility] Comment on above: Performed By: #### B MP, LIPA, YVETTE, LIVER #### [facility] [address] [place] [address] Dr. Idania Roldan RBC 4.87 106/ul Normal 4.20-5.40 [facility] Comment on above: Performed By: #### B MP, LIPA, YVETTE, LIVER #### [facility] [address] [place] [address] Dr. Idania Roldan WBC 6.0 103/ul Normal 4.0-11.0 [facility] Comment on above: Performed By: #### B MP, LIPA, YVETTE, LIVER #### [facility] [address] [place] [address] ABD/PELVIS WO CONon 01-25 CT ABD/PELVIS WO CON EXAMINATION: CT ABD /PELVIS WO CON, 01/25/2023 11:34 AM EDT HISTORY: CALCULUS OF KIDNEY COMPARISON: 08/21/2022 TECHNIQUE: CT scan of the abdomen and pelvis was performed without IV contrast. CT dose reduction technique was used, including Automated Exposure Control. ABDOMEN/PELVIS FINDINGS: Lower Chest: Unremarkable. Liver: Normal nonenhanced appearance and contour. Biliary/Gallbladder: Prior cholecystectomy. Pancreas: Unremarkable. Spleen: Unremarkable. Adrenal Glands: Unremarkable. Kidneys: There is a small nonobstructive calculus in the lower pole the left kidney. No hydronephrosis or ureteral calculus identified. 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 There are no dilated loops of bowel. The appendix is unremarkable. No free air or free fluid. Vascular: Unremarkable. Lymph Nodes: No enlarged lymph nodes by CT size criteria. Pelvic Organs: Prior hysterectomy. Bladder: Unremarkable. Bones: No acute osseous abnormality. Soft tissues: Unremarkable. IMPRESSION: 1. No acute abnormality of the abdomen and pelvis. 2. Small nonobstructive calculus in the lower pole left kidney. 3. Prior cholecystectomy, hysterectomy and Josefa-en-Y gastric bypass. Electronically authenticated by: VEDAJose L CLARKRONDA Date: 2023-01-25 12:20 Normal [facility] ER URINE PROFILEon 3 Bilirubin Ql (U) SMALL Abnormal NEGATIVE [facility] Comment on above: Performed By: #### B MP, LIPA, YVETTE, LIVER #### [facility] [address] [place] [address] Dr. Idania Roldan Clarity (U) CLEAR Normal CLEAR [facility] Comment on above: Performed By: #### B MP, LIPA, YVETTE, LIVER #### [facility] [address] [place] [address] Dr. Idania Roldan Color (U) DK. YELLOW Normal YELLOW [facility] Comment on above: Performed By: #### B MP, LIPA, YVETTE, LIVER #### [facility] [address] [address] [address] Idania Roldan ERUAHD A micrscopic examina tion will be performed if indicated. Normal [facility] l Comment on above: Performed By: #### B MP, LIPA, YVETTE, LIVER #### [facility] [address] [address] [address] Idania Roldan Glucose Ql (U) Negative Normal NEGATIVE [facility] Comment on above: Performed By: #### B MP, LIPA, YVETTE, LIVER #### [facility] [address] [address] [address] Idania Roldan Hemoglobin Ql (U) LARGE Abnormal NEGATIVE [facility] Comment on above: Performed By: #### B MP, LIPA, YVETTE, LIVER #### [facility] [address] [place] [address] Dr. Idania Roldan Ketones Ql (U) TRACE Abnormal NEGATIVE [facility] Comment on above: Performed By: #### B MP, LIPA, YVETTE, LIVER #### [facility] [address] [place] [address] Dr. Idania Roldan LEUKOCYTES Negative Normal NEGATIVE [facility] Comment on above: Performed By: #### B MP, LIPA, YVETTE, LIVER #### [facility] [address] [place] [address] Dr. Idania Roldan Nitrite Ql (U) Negative Normal NEGATIVE [facility] Comment on above: Performed By: #### B MP, LIPA, YVETTE, LIVER #### [facility] [address] [place] [address] Dr. Idania Roldan pH (U) 5.0 [pH] Normal 5-9 [facility] Comment on above: Performed By: #### B MP, LIPA, YVETTE, LIVER #### [facility] [address] [place] [address] Dr. Idania Roldan SPEC GRAVITY >=1.030 Abnormal 1.005-<=1.025 [facility] Comment on above: Performed By: #### B MP, LIPA, YVETTE, LIVER #### [facility] [address] [place] [address] Dr. Idania Roldan UA PROTEIN TRACE Normal NEGATIVE/ TRACE [facility] Comment on above: Performed By: #### B MP, LIPA, YVETTE, LIVER #### [facility] [address] [place] [address] Dr. Idania Roldan UR MICRO IND INDICATED Normal [facility] Comment on above: Performed By: #### B MP, LIPA, YVETTE, LIVER #### [facility] [address] [place] [address] Dr. Idania Roldan Urobilinogen Qn (U) 0.2 {Bryan'U}/dL Normal 0.2 - 1. 0 [facility] Comment on above: Performed By: #### B MP, LIPA, YVETTE, LIVER #### [facility] [address] [place] [address] Dr. Idania Roldan LIPASEon 01-25-2023 Lipase [Catalytic activity/Vol] 226.0 U/L Normal 73.0 -393.0 [facility] Comment on above: Performed By: #### B MP, LIPA, YVETTE, LIVER #### [facility] [address] [place] [address] Dr. Idania Roldan LIVER PROFILEon 01-25-2023 Albumin [Mass/Vol] 4.1 g/dL Normal 3.4-5.0 [facility] Comment on above: Performed By: #### B MP, LIPA, YVETTE, LIVER #### [facility] [address] [place] [address] Dr. Idania Roldan Albumin/Globulin [Mass ratio] 0.9 {ratio} Normal [facility] Comment on above: Performed By: #### B MP, LIPA, YVETTE, LIVER #### [facility] [address] [place] [address] Dr. Idania Roldan ALP [Catalytic activity/Vol] 110 U/L Normal 46-116 [facility] Comment on above: Performed By: #### B MP, LIPA, YVETTE, LIVER #### [facility] [address] [place] [address] Dr. Idania Roldan ALT [Catalytic activity/Vol] 20 U/L Normal 14-59 [facility] Comment on above: Performed By: #### B MP, LIPA, YVETTE, LIVER #### [facility] [address] [place] [address] Dr. Idania Roldan AST [Catalytic activity/Vol] 11 U/L Critically low 15- 37 [facility] Comment on above: Performed By: #### B MP, LIPA, YVETTE, LIVER #### [facility] [address] [place] [address] Dr. Idania Roldan BILI, CONJUGATED 0.1 mg/dL Normal 0.0-0.2 [facility] Comment on above: Performed By: #### B MP, LIPA, YVETTE, LIVER #### [facility] [address] [place] [address] Dr. Idania Roldan Bilirubin [Mass/Vol] 0.3 mg/dL Normal 0.2-1.0 [facility] Comment on above: Performed By: #### B MP, LIPA, YVETTE, LIVER #### [facility] [address] [place] [address] Dr. Idania Roldan Globulin (S) [Mass/Vol] 4.4 g/dL Normal [facility] Comment on above: Performed By: #### B MP, LIPA, YVETTE, LIVER #### [facility] [address] [place] [address] Dr. Idania Roldan Protein [Mass/Vol] 8.5 g/dL Critically high 6.4-8.2 [facility] Comment on above: Performed By: #### B MP, LIPA, YVETTE, LIVER #### [facility] [address] [place] [address] Dr. Idania Roldan PROF CHEM 8 (BAS METB)on Anion gap [Moles/Vol] 13.5 mmol/L Normal [facility] Comment on above: Performed By: #### B MP, LIPA, YVETTE, LIVER #### [facility] [address] [place] [address] Dr. Idania Roldan Calcium [Mass/Vol] 9.3 mg/dL Normal 8.5-10.1 [facility] Comment on above: Performed By: #### B MP, LIPA, YVETTE, LIVER #### [facility] [address] [place] [address] Dr. Idania Roldan Chloride [Moles/Vol] 105 mmol/L Normal 98-107 [facility] Comment on above: Performed By: #### B MP, LIPA, YVETTE, LIVER #### [facility] [address] [place] [address] Dr. Idania Roldan CO2 [Moles/Vol] 27.2 mmol/L Normal 21.0-32.0 [facility] Comment on above: Performed By: #### B MP, LIPA, YVETTE, LIVER #### [facility] [address] [place] [address] Dr. Idania Roldan Creatinine [Mass/Vol] 0.74 mg/dL Normal 0.55-1.02 [facility] Comment on above: Performed By: #### B MP, LIPA, YVETTE, LIVER #### [facility] [address] [address] [address] Idania Roldan EGFR-AF CENTRAL AFRICAN >60 Normal >=60 [facility] Comment on above: Performed By: #### B MP, LIPA, YVETTE, LIVER #### [facility] [address] [address] [address] Idania Roldan EGFR-NON AF CENTRAL AFRICAN >60 Normal >=60 [facility] Comment on above: Performed By: #### B MP, LIPA, YVETTE, LIVER #### [facility] [address] [address] [address] Idania Roldan Glucose [Mass/Vol] 97 mg/dL Normal 74-106 [facility] Comment on above: Performed By: #### B MP, LIPA, YVETTE, LIVER #### [facility] [address] [place] [address] Dr. Idania Roldan Potassium [Moles/Vol] 3.7 mmol/L Normal 3.5-5.1 [facility] Comment on above: Performed By: #### B MP, LIPA, YVETTE, LIVER #### [facility] [address] [place] [address] Dr. Idania Roldan Sodium [Moles/Vol] 142 mmol/L Normal 136-145 [facility] Comment on above: Performed By: #### B MP, LIPA, YVETTE, LIVER #### [facility] [address] [place] [address] Dr. Idania Roldan Urea nitrogen [Mass/Vol] 13.0 mg/dL Normal 7.0-18.0 [facility] Comment on above: Performed By: #### B MP, LIPA, YVETTE, LIVER #### [facility] [address] [place] [address] Dr. Idania Roldan Urea nitrogen/Creatinine [Mass ratio] 17.6 mg/mg Normal [facility] Comment on above: Performed By: #### B MP, LIPA, YVETTE, LIVER #### [facility] [address] [place] [address] Dr. Idania Roldan URINE MICROSCOPIC ONLYon BACTERIA NONE SEEN Normal NONE SEEN [facility] Comment on above: Performed By: #### B MP, LIPA, YVETTE, LIVER #### [facility] [address] [address] [address] Idania Roldan Bacteria identified Cx Nom (U) NOT INDICATED Normal [facility] Comment on above: Performed By: #### B MP, LIPA, YVETTE, LIVER #### [facility] [address] [address] [address] Idania Roldan CAST NONE SEEN Normal NONE SEEN [facility] Comment on above: Performed By: #### B MP, LIPA, YVETTE, LIVER #### [facility] [address] [place] [address] Dr. Idania Roldan Crystals LM Nom (Urine sed) NONE SEEN Normal NONE SEE N [facility] Comment on above: Performed By: #### B MP, LIPA, YVETTE, LIVER #### [facility] [address] [place] [address] Dr. Idania Roldan Epithelial cells LM Ql (Urine sed) FEW Abnormal N ONE SEEN /RARE [facility] Comment on above: Performed By: #### B MP, LIPA, YVETTE, LIVER #### [facility] [address] [place] [address] Dr. Idania Roldan MUCOUS NONE SEEN Normal NONE SEEN [facility] Comment on above: Performed By: #### B MP, LIPA, YVETTE, LIVER #### [facility] [address] [place] [address] Dr. Idania Roldan RBC (U) [#/Vol] /uL Abnormal 0-2 [facility] Comment on above: Performed By: #### B MP, LIPA, YVETTE, LIVER #### [facility] [address] [address] [address] Idania Roldan WBC NONE SEEN Normal NONE SEEN [facility] ospital Comment on above: Performed By: #### B MP, LIPA, YVETTE, LIVER #### [facility] [address] [place] [address] Dr. Idania Roldan XR KUB 1 VIEWon 01-24-2023 XR KUB 1 VIEW EXAM: XR KUB 1 VIEW, 01/21/2023 HISTORY: Kidney stone COMPARISON: Prior CT scan from 08/21/2022 TECHNIQUE: 2 views of the abdomen and pelvis. FINDINGS: Multiple postoperative clips are seen in the upper and lower abdomen. Interval removal of left-sided ureteric stent. There is moderate stool in the colon. No obvious radiopaque density seen to suggest urolithiasis. CT scan stone protocol could be considered if clinically indicated. No acute osseous findings. IMPRESSION: No obvious urolithiasis, CT scan stone protocol could be considered if clinically indicated. Electronically authenticated by: DENILSON AUSTIN Date: 2023-01-24 19:51 Normal [facility] AMYLASEon 01-21-2023 Amylase [Catalytic activity/Vol] 64 U/L Normal 25- 115 [facility] Comment on above: Performed By: #### P T, PTT #### [facility] [address] [place] [address] Dr. Idania Roldan CBC AUTO DIFFon 01-21-2023 BASO # 0.0 103/ul Normal 0.0-0.1 [facility] Comment on above: Performed By: #### B MP, LIPA, YVETTE, LIVER #### [facility] [address] [place] [address] Dr. Idania Roldan Basophils/100 WBC (Bld) 0.2 % Normal 0.2-2.0 [facility] Comment on above: Performed By: #### B MP, LIPA, YVETTE, LIVER #### [facility] [address] [place] [address] Dr. Idania Roldan EO # 0.1 103/ul Normal 0.0-0.7 [facility] Comment on above: Performed By: #### B MP, LIPA, YVETTE, LIVER #### [facility] [address] [place] [address] Dr. Idania Roldan Eosinophils/100 WBC (Bld) 0.9 % Normal 0.9-7.0 [facility] Comment on above: Performed By: #### B MP, LIPA, YVETTE, LIVER #### [facility] [address] [place] [address] Dr. Idania Roldan Erythrocyte distribution wid th (RBC) [Ratio] 17.2 % Critically high 11.0-15.0 [facility] Comment on above: Performed By: #### B MP, LIPA, YVETTE, LIVER #### [facility] [address] [place] [address] Dr. Idania Roldan Hematocrit (Bld) [Volume fraction] 32.5 % Critically low 36.0-48.0 [facility] Comment on above: Performed By: #### B MP, LIPA, YVETTE, LIVER #### [facility] [address] [place] [address] Dr. Idania Roldan Hemoglobin (Bld) [Mass/Vol] 9.5 g/dL Critically low 12.0 -16.0 [facility] Comment on above: Performed By: #### B MP, LIPA, YVETTE, LIVER #### [facility] [address] [place] [address] Dr. Idania Roldan IG # 0.01 10e3/ul Normal 0.00-0.03 [facility] Comment on above: Performed By: #### B MP, LIPA, YVETTE, LIVER #### [facility] [address] [place] [address] Dr. Idania Roldan IG % 0.2 % Normal 0.0-0.5 [facility] Comment on above: Performed By: #### B MP, LIPA, YVETTE, LIVER #### [facility] [address] [place] [address] Dr. Idania Roldan LYMPH # 2.0 103/ul Normal 1.2-3.8 [facility] Comment on above: Performed By: #### B MP, LIPA, YVETTE, LIVER #### [facility] [address] [place] [address] Dr. Idania Roldan Lymphocytes/100 WBC (Bld) 34.7 % Normal 20.5-60.0 [facility] Comment on above: Performed By: #### B MP, LIPA, YVETTE, LIVER #### [facility] [address] [place] [address] Dr. Idania Roldan MANUAL DIFF REQ NO Normal [facility] Comment on above: Performed By: #### B MP, LIPA, YVETTE, LIVER #### [facility] [address] [place] [address] Dr. Idania Roldan MCH (RBC) [Entitic mass] 20.5 pg Critically low 26.7-34 .0 [facility] Comment on above: Performed By: #### B MP, LIPA, YVETTE, LIVER #### [facility] [address] [place] [address] Dr. Idania Roldan MCHC (RBC) [Mass/Vol] 29.2 g/dL Critically low 29.9-35.2 [facility] Comment on above: Performed By: #### B MP, LIPA, YVETTE, LIVER #### [facility] [address] [place] [address] Dr. Idania Roldan MCV (RBC) [Entitic vol] 70.2 fL Critically low 81.0-99. 0 [facility] Comment on above: Performed By: #### B MP, LIPA, YVETTE, LIVER #### [facility] [address] [place] [address] Dr. Idania Roldan MONO # 0.5 103/ul Normal 0.3-0.8 [facility] Comment on above: Performed By: #### B MP, LIPA, YVETTE, LIVER #### [facility] [address] [place] [address] Dr. Idania Roldan Monocytes/100 WBC (Bld) 8.7 % Normal 1.7-12.0 [facility] Comment on above: Performed By: #### B MP, LIPA, YVETTE, LIVER #### [facility] [address] [place] [address] Dr. Idania Roldan NEUT # 3.2 103/ul Normal 1.4-6.5 [facility] Comment on above: Performed By: #### B MP, LIPA, YVETTE, LIVER #### [facility] [address] [place] [address] Dr. Idania Roldan Neutrophils/100 WBC (Bld) 55.3 % Normal 43.0-75.0 [facility] Comment on above: Performed By: #### B MP, LIPA, YVETTE, LIVER #### [facility] [address] [place] [address] Dr. Idania Roldan Platelet mean volume (Bld) [Entitic vol] 9.7 fL Normal 9.5-13.5 [facility] Comment on above: Performed By: #### B MP, LIPA, YVETTE, LIVER #### [facility] [address] [place] [address] Dr. Idania Roldan PLT 310 103/ul Normal 150-450 [facility] Comment on above: Performed By: #### B MP, LIPA, YVETTE, LIVER #### [facility] [address] [place] [address] Dr. Idania Roldan RBC 4.63 106/ul Normal 4.20-5.40 [facility] Comment on above: Performed By: #### B MP, LIPA, YVETTE, LIVER #### [facility] [address] [place] [address] Dr. Idania Roldan WBC 5.8 103/ul Normal 4.0-11.0 [facility] Comment on above: Performed By: #### B MP, LIPA, YVETTE, LIVER #### [facility] [address] [place] [address] Dr. Idania Roldan CULTURE URINEon 01-21-2023 CULTURE URINE Culture Observations : MODERATE GROWTH OF MIXED GENITAL ALE. NO POTENTIAL PATHOGENS SEEN. Normal [facility] Comment on above: Performed By: #### P T, PTT #### [facility] [address] [place] [address] Dr. Idania Roldan LIPASEon 01-21-2023 Lipase [Catalytic activity/Vol] 251.0 U/L Normal 73.0 -393.0 [facility] Comment on above: Performed By: #### P T, PTT #### [facility] [address] [place] [address] Dr. Idania Roldan PROF 14(COMP METB)on 023 Albumin [Mass/Vol] 3.8 g/dL Normal 3.4-5.0 [facility] Comment on above: Performed By: #### P T, PTT #### [facility] [address] [place] [address] Dr. Idania Roldan Albumin/Globulin [Mass ratio] 1.0 {ratio} Normal [facility] Comment on above: Performed By: #### P T, PTT #### [facility] [address] [place] [address] Dr. Idania Roldan ALP [Catalytic activity/Vol] 107 U/L Normal 46-116 [facility] Comment on above: Performed By: #### P T, PTT #### [facility] [address] [place] [address] Dr. Idania Roldan ALT [Catalytic activity/Vol] 17 U/L Normal 14-59 [facility] Comment on above: Performed By: #### P T, PTT #### [facility] [address] [place] [address] Dr. Idania Roldan Anion gap [Moles/Vol] 13.3 mmol/L Normal [facility] Comment on above: Performed By: #### P T, PTT #### [facility] [address] [place] [address] Dr. Idania Roldan AST [Catalytic activity/Vol] 9 U/L Critically low 15- 37 [facility] Comment on above: Performed By: #### P T, PTT #### [facility] [address] [address] [address] Idania Roldan Bilirubin [Mass/Vol] 0.3 mg/dL Normal 0.2-1.0 [facility] Comment on above: Performed By: #### P T, PTT #### [facility] [address] [address] [address] Idania Roldan Calcium [Mass/Vol] 9.0 mg/dL Normal 8.5-10.1 [facility] Comment on above: Performed By: #### P T, PTT #### [facility] [address] [place] [address] Dr. Idania Roldan Chloride [Moles/Vol] 103 mmol/L Normal 98-107 [facility] Comment on above: Performed By: #### P T, PTT #### [facility] [address] [place] [address] Dr. Idania Roldan CO2 [Moles/Vol] 28.2 mmol/L Normal 21.0-32.0 [facility] Comment on above: Performed By: #### P T, PTT #### [facility] [address] [place] [address] Dr. Idania Roldan Creatinine [Mass/Vol] 0.81 mg/dL Normal 0.55-1.02 [facility] Comment on above: Performed By: #### P T, PTT #### [facility] [address] [place] [address] Dr. Idania Roldan EGFR-AF CENTRAL AFRICAN >60 Normal >=60 [facility] Comment on above: Performed By: #### P T, PTT #### [facility] [address] [place] [address] Dr. Idania Roldan EGFR-NON AF CENTRAL AFRICAN >60 Normal >=60 [facility] Comment on above: Performed By: #### P T, PTT #### [facility] [address] [place] [address] Dr. Idania Roldan Globulin (S) [Mass/Vol] 3.9 g/dL Normal [facility] Comment on above: Performed By: #### P T, PTT #### [facility] [address] [address] [address] Idania Roldan Glucose [Mass/Vol] 93 mg/dL Normal 74-106 [facility] Comment on above: Performed By: #### P T, PTT #### [facility] [address] [place] [address] Dr. Idania Roldan Potassium [Moles/Vol] 3.5 mmol/L Normal 3.5-5.1 [facility] Comment on above: Performed By: #### P T, PTT #### [facility] [address] [place] [address] Dr. Idania Roldan Protein [Mass/Vol] 7.7 g/dL Normal 6.4-8.2 [facility] Comment on above: Performed By: #### P T, PTT #### [facility] [address] [place] [address] Dr. Idania Roldan Sodium [Moles/Vol] 141 mmol/L Normal 136-145 [facility] Comment on above: Performed By: #### P T, PTT #### [facility] [address] [place] [address] Dr. Idania Roldan Urea nitrogen [Mass/Vol] 11.0 mg/dL Normal 7.0-18.0 [facility] Comment on above: Performed By: #### P T, PTT #### [facility] [address] [place] [address] Dr. Idania Roldan Urea nitrogen/Creatinine [Mass ratio] 13.6 mg/mg Normal [facility] Comment on above: Performed By: #### P T, PTT #### [facility] [address] [place] [address] Dr. Idania Roldan UA RANDOM W/MICROSCOPICon BACTERIA SMALL Abnormal NONE SEEN [facility] Comment on above: Performed By: #### B MP, LIPA, YVETTE, LIVER #### [facility] [address] [place] [address] Dr. Idania Roldan Bilirubin Ql (U) SMALL Abnormal NEGATIVE [facility] Comment on above: Performed By: #### B MP, LIPA, YVETTE, LIVER #### [facility] [address] [place] [address] Dr. Idania Roldan CAST NONE SEEN Normal NONE SEEN [facility] Comment on above: Performed By: #### B MP, LIPA, YVETTE, LIVER #### [facility] [address] [place] [address] Dr. Idania Roldan Clarity (U) CLEAR Normal CLEAR [facility] Comment on above: Performed By: #### B MP, LIPA, YVETTE, LIVER #### [facility] [address] [place] [address] Dr. Idania Roldan Color (U) DK. YELLOW Normal YELLOW [facility] Comment on above: Performed By: #### B MP, LIPA, YVETTE, LIVER #### [facility] [address] [address] [address] Idania Roldan Crystals LM Nom (Urine sed) NONE SEEN Normal NONE SEE N [facility] Comment on above: Performed By: #### B MP, LIPA, YVETTE, LIVER #### [facility] [address] [address] [address] Idania Roldan Epithelial cells LM Ql (Urine sed) FEW Abnormal N ONE SEEN /RARE [facility] Comment on above: Performed By: #### B MP, LIPA, YVETTE, LIVER #### [facility] [address] [place] [address] Dr. Idania Roldan Glucose Ql (U) Negative Normal NEGATIVE [facility] Comment on above: Performed By: #### B MP, LIPA, YVETTE, LIVER #### [facility] [address] [address] [address] Idania Roldan Hemoglobin Ql (U) LARGE Abnormal NEGATIVE [facility] Comment on above: Performed By: #### B MP, LIPA, YVETTE, LIVER #### [facility] [address] [address] [address] Idania Roldan Ketones Ql (U) TRACE Abnormal NEGATIVE [facility] Comment on above: Performed By: #### B MP, LIPA, YVETTE, LIVER #### [facility] [address] [address] [address] Idania Roldan LEUKOCYTES Negative Normal NEGATIVE [facility] Comment on above: Performed By: #### B MP, LIPA, YVETTE, LIVER #### [facility] [address] [address] [address] Idania Roldan MUCOUS MODERATE Abnormal NONE SEEN [facility] Comment on above: Performed By: #### B MP, LIPA, YVETTE, LIVER #### [facility] [address] [address] [address] Iadnia Roldan Nitrite Ql (U) Negative Normal NEGATIVE [facility] Comment on above: Performed By: #### B MP, LIPA, YVETTE, LIVER #### [facility] [address] [place] [address] Dr. Idania Roldan pH (U) 5.0 [pH] Normal 5-9 [facility] Comment on above: Performed By: #### B MP, LIPA, YVETTE, LIVER #### [facility] [address] [place] [address] Dr. Idania Roldan RBC (U) [#/Vol] /uL Abnormal 0-2 [facility] Comment on above: Performed By: #### B MP, LIPA, YVETTE, LIVER #### [facility] [address] [place] [address] Dr. Idania Roldan SPEC GRAVITY >=1.030 Abnormal 1.005-<=1.025 [facility] Comment on above: Performed By: #### B MP, LIPA, YVETTE, LIVER #### [facility] [address] [place] [address] Dr. Idania Roldan UA PROTEIN TRACE Normal NEGATIVE/ TRACE [facility] Comment on above: Performed By: #### B MP, LIPA, YVETTE, LIVER #### [facility] [address] [place] [address] Dr. Idania Roldan Urobilinogen Qn (U) 0.2 {Bryan'U}/dL Normal 0.2 - 1. 0 [facility] Comment on above: Performed By: #### B MP, LIPA, YVETTE, LIVER #### [facility] [address] [place] [address] Dr. Idania Roldan WBC 0-2 Abnormal NONE SEEN [facility] Comment on above: Performed By: #### B MP, LIPA, YVETTE, LIVER #### [facility] [address] [place] [address] Dr. Idania Roldan Follow-Upon 01-08-2023 Follow-Up [id number] Madyson Moore 1980 F Date Provider Department Center 01/08/2023 RUKHSANA ESPINOZA [facility] Family History Problem Relation Age of Onset Brain cancer Mother Breast cancer Sister Kidney cancer Maternal Grandmother Prostate cancer Paternal Grandfather Cancer Father Cancer Sister Family Status - Relation Status Age at Mother Sister Maternal Grandmother Paternal Grandfather Father Sister Level of Service:35259 [place] OFFICE/OUTPATIENT ESTABLISHED LOW MDM 20-29 MIN Reason for Visit and Comments: Follow-up [791689] - Discuss SCS next steps Normal [facility] RAD - MISCon 01-05-2023 RAD - MIS [id number]: 127 Normal [facility] Patient Educationon 01-05-20 23 Patient Education Urology Dietary Guidelines to Help Prevent Kidney Stones Kidney stones are deposits of minerals and salts that form inside your kidneys. Your risk of developing kidney stones may be greater depending on your diet, your lifestyle, the medicines you take, and whether you have certain medical conditions. Most people can reduce their chances of developing kidney stones by following the instructions below. Depending on your overall health and the type of kidney stones you tend to develop, your dietitian may give you more specific instructions. What are tips for following this plan? Reading food labels ? Choose foods with no salt added or low-salt labels. Limit your sodium intake to less than 1500 mg per day. ? Choose foods with calcium for each meal and snack. Try to eat about 300 mg of calcium at each meal. Foods that contain 200?500 mg of calcium per serving include: ? 8 oz (237 ml) of milk, fortified nondairy milk, and fortified fruit juice. ? 8 oz (237 ml) of kefir, yogurt, and soy yogurt. ? 4 oz (118 ml) of tofu. ? 1 oz of cheese. ? 1 cup (300 g) of dried figs. ? 1 cup (91 g) of cooked broccoli. ? 1?3 oz can of sardines or mackerel. ? Most people need 1000 to 1500 mg of calcium each day. Talk to your dietitian about how much calcium is recommended for you. Shopping ? Buy plenty of fresh fruits and vegetables. Most people do not need to avoid fruits and vegetables, even if they contain nutrients that may contribute to kidney stones. ? When shopping for convenience foods, choose: ? Whole pieces of fruit. ? Premade salads with dressing on the side. ? Low-fat fruit and yogurt smoothies. ? Avoid buying frozen meals or prepared deli foods. ? Look for foods with live cultures, such as yogurt and kefir. Cooking ? Do not add salt to food when cooking. Place a salt shaker on the table and allow each person to add his or her own salt to taste. ? Use vegetable protein, such as beans, textured vegetable protein (TVP), or tofu instead of meat in pasta, casseroles, and soups. Meal planning ? Eat less salt, if told by your dietitian. To do this: ? Avoid eating processed or premade food. ? Avoid eating fast food. ? Eat less animal protein, including cheese, meat, poultry, or fish, if told by your dietitian. To do this: ? Limit the number of times you have meat, poultry, fish, or cheese each week. Eat a diet free of meat at least 2 days a week. ? Eat only one serving each day of meat, poultry, fish, or seafood. ? When you prepare animal protein, cut pieces into small portion sizes. For most meat and fish, one serving is about the size of one deck of cards. ? Eat at least 5 servings of fresh fruits and vegetables each day. To do this: ? Keep fruits and vegetables on hand for snacks. ? Eat 1 piece of fruit or a handful of berries with breakfast. ? Have a salad and fruit at lunch. ? Have two kinds of vegetables at dinner. ? Limit foods that are high in a substance called oxalate. These include: ? Spinach. ? Rhubarb. ? Beets. ? Potato chips and pakistani fries. ? Nuts. ? If you regularly take a diuretic medicine, make sure to eat at least 1?2 fruits or vegetables high in potassium each day. These include: ? Avocado. ? Banana. ? [place], prune, carrot, or tomato juice. ? Baked potato. ? Cabbage. ? Beans and split peas. General instructions ? Drink enough fluid to keep your urine clear or pale yellow. This is the most important thing you can do. ? Talk to your health care provider and dietitian about taking daily supplements. Depending on your health and the cause of your kidney stones, you may be advised: ? Not to take supplements with vitamin C. ? To take a calcium supplement. ? To take a daily probiotic supplement. ? To take other supplements such as magnesium, fish oil, or vitamin B6. ? Take all medicines and supplements as told by your health care provider. ? Limit alcohol intake to no more than 1 drink a day for non women and 2 drinks a day for men. One drink equals 12 oz of beer, 5 oz of wine, or 1? oz of hard liquor. ? Lose weight if told by your health care provider. Work with your dietitian to find strategies and an eating plan that works best for you. What foods are not recommended? Limit your intake of the following foods, or as told by your dietitian. Talk to your dietitian about specific foods you should avoid based on the type of kidney stones and your overall health. Grains Breads. Bagels. Rolls. Baked goods. Salted crackers. Cereal. Pasta. Vegetables Spinach. Rhubarb. Beets. Canned vegetables. Pickles. Olives. Meats and other protein foods Nuts. Nut butters. Large portions of meat, poultry, or fish. Salted or cured meats. Deli meats. Hot dogs. Sausages. Dairy Cheese. Beverages Regular soft drinks. Regular vegetable juice. Seasonings and other foods Seasoning blends with salt. Salad dr (more content not included)... Normal [facility] Orders Onlyon 01-01-2023 Orders Only [id number] Madyson Moore 1980 F Date Provider Department Center 01/01/2023 RUKHSANA ESPINOZA [facility] Family History Problem Relation Age of Onset Brain cancer Mother Breast cancer Sister Kidney cancer Maternal Grandmother Prostate cancer Paternal Grandfather Cancer Father Cancer Sister Family Status - Relation Status Age at Mother Sister Maternal Grandmother Paternal Grandfather Father Sister Normal [facility] Follow-Upon 12-24-2022 Follow-Up [id number] Madyson Moore 1980 F Date Provider Department Center 12/24/2022 ARJUN ROSE MP [facility] Family History Problem Relation Age of Onset Brain cancer Mother Breast cancer Sister Kidney cancer Maternal Grandmother Prostate cancer Paternal Grandfather Cancer Father Cancer Sister Family Status - Relation Status Age at Mother Sister Maternal Grandmother Paternal Grandfather Father Sister Level of Service:99220 [place] OFFICE/OUTPATIENT ESTABLISHED MOD MDM 30-39 MIN () Reason for Visit and Comments: Follow-up [[id number]] - S/P sympathetic nerve block it helped a couple of days brought pain level down a little before procedure pain was 7 after procedure pain was 5 or 6. The injection did help the pain for a couple days. [facility] ----- Message from Naty Hayden MA sent at 12/15/2022 1:01 PM EST ----- Regarding: FW: Concerns ----- Message ----- From: Elvi Moore Sent: 12/15/2022 7:44 AM EST To: [facility] Pain Medicine Clinical Support Pool Subject: Concerns Hi I???m messaging you because I have an appointment on the and I don???t know if I should try to get one earlier I???m still having some really bad swelling and pain the nerve block did take some edge off but not a whole lot and I feel it???s already worn off because my pain is increasing a lot more I did submit a request for a refill on my med which does help until it wears off then I???m n pain again I just wasn???t sure what I needed to do come in earlier or wait til the thank you for your time I am attaching a pic of my knee honestly I???m just miserable Normal [facility] Orders Onlyon 12-14-2022 Orders Only [id number] Madyson Moore ma 1980 F Date Provider Department Center 12/14/2022 RUKHSANA ESPINOZA MP [facility] Family History Problem Relation Age of Onset Brain cancer Mother Breast cancer Sister Kidney cancer Maternal Grandmother Prostate cancer Paternal Grandfather Cancer Father Cancer Sister Family Status - Relation Status Age at Mother Sister Maternal Grandmother Paternal Grandfather Father Sister Normal [facility] HPon 12-10-2022 H&P reviewed. The pa tient was examined and there are no changes to the H&P. Normal [facility] HP This patient is a 41 -year-old female presents to clinic today to establish care for persistent, ongoing left knee pain. Patient is noted to have significant history of left knee pathology and subsequent surgeries. She is noted to have undergone 3 arthroscopic procedures as well as left TKA by Dr. Lane in 10/30/2021. Patient is noted to have limited range of motion in the months following her surgery and underwent manipulation under anesthesia on 02/12/2022. On 06/01/2022 she underwent left TKA revision. Patient reports initial pain relief following 05/2022 surgery. Reports soreness but gradual improvement in pain. Reports Covid in 09/2022 which resulted in significant pain thereafter. Patient has completed outpatient physical therapy he continues home exercise program at present. She is currently taking Tylenol for pain. She is history of Josefa-en-Y bypass and was told to avoid NSAIDs. Despite this she has tried ibuprofen for a few doses and reports significant upset stomach and is since discontinued. Patient reports persistent left knee pains which are described as sharp and aching character but also cramping which extends to the left martinez. She reports sensory abnormalities along the lateral aspect of the left knee as compared to the right. She reports persistent swelling and some weakness in the left knee as opposed to the right. Patient is currently utilizing a four-point cane for community ambulation. She has undergone left knee aspiration which was unremarkable. 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 Past History of Treatments: Patient has tried other professional care of: OPPT (last performed in 07/2022) Trialed medications: Ibuprofen Current Medications for Associated Pain: Wade 5/325, Amitriptyline 50 qhs Current Medications Procedures performed previously: 06/01/22 Left TKA revision (Dr. Lane) 02/12/22 Manipulation Under Anesthesia, left knee (Dr. Lane) 10/30/21 Left TKA (press fit, Dr. Lane) Imagin10/21/22 Left knee XR: Hardware in good alignment without evidence of failure The patient's current OARRS report has been checked and reviewed. Review of Systems Constitutional: Positive for activity change and fatigue. Negative for appetite change, chills, diaphoresis and fever. HENT: Negative. Respiratory: Negative. Cardiovascular: Positive for leg swelling. Negative for chest pain and palpitations. Gastrointestinal: Negative. Endocrine: Negative. Genitourinary: Negative. Musculoskeletal: Positive for arthralgias, gait problem, joint swelling and myalgias. Negative for back pain, neck pain and neck stiffness. Allergic/Immunologic: Negative. Neurological: Positive for weakness and numbness. Hematological: Negative. Psychiatric/Behavioral: Positive for sleep disturbance. Physical Exam Gen: NAD, sitting comfortably in chair. HEENT: EOMI CVS: extremities well perfused, no peripheral cyanosis in exposed areas Lung: normal effort of breathing, no accessory muscle usage MSK: RLE strength 5/5, LLE strength exam limited secondary to pain - left knee ROM 15-90 degrees - TTP to palpation throughout left knee joint and surrounding structures Gait: antalgic with use of 4-point cane on the right Skin: no ecchymosis appreciated in exposed areas - left knee edema present - increased warmth of left knee relative to right Neuro: hyperalgesia to lateral aspect of left knee above and below joint line. Remainder of sensory testing symmetric to contralateral limb Psych: normal mood and affect Clinical diagnostic criteria for complex regional pain syndrome Y 1) Continuing pain, which is disproportionate to any inciting event Y 2) Must report at least one symptom in three of the four following categories Y Sensory: Reports of hyperalgesia and/or allodynia Y Vasomotor: Reports of temperature asymmetry and/or skin color changes and/or skin color asymmetry Y Sudomotor/Edema: Reports of edema and/or sweating changes and/or sweating asymmetry Y Motor/Trophic: Reports of decreased range of motion and/or motor dysfunction (weakness, tremor, dystonia) and/or trophic changes (hair, nail, skin) 3) Must display at least one sign at time of evaluation in two or more of the following categories Y Sensory: Evidence of hyperalgesia (to pinprick) and/or allodynia (to light touch and/or deep somatic pressure and/or joint movement) Y Vasomotor: Evidence of temperature asymmetry and/or skin color changes and/or asymmetry Y Sudomotor/Edema: Evidence of edema and/or sweating changes and/or sweating asymmetry Y Motor/Trophic: Evidence of decreased range of motion and/or motor dysfunction (weakness, tremor, dystonia) and/or trophic changes (hair, nail, skin) Y 4) There is no other diagnosis that better explains the signs and symptoms ? Based on the clinical symptoms and signs, the patient does (more content not included)... [facility] 36on 12-01-2022 36 Sent to correct pharmacy, Thanks [facility] 36on 11-30-2022 36 Patient called the o ffice and stating that her medication [facility] [place] [facility]. When looking in the patients chart it did show that it was sent to the wrong pharmacy. I took that pharmacy out of the patients chart but she needs her medication refill sent to the right pharmacy. Please advise. Thank you. [facility] Telephoneon 11-30-2022 Telephone [id number] Madyson Moore 1980 Date Provider Department Center 11/30/2022 DENISSE PANIAGUA MP PAIN Medical [facility] Family History Problem Relation Age of Onset Brain cancer Mother Breast cancer Sister Kidney cancer Maternal Grandmother Prostate cancer Paternal Grandfather Cancer Father Cancer Sister Family Status - Relation Status Age at Mother Sister Maternal Grandmother Paternal Grandfather Father Sister [facility] Office Visiton 11-24-2022 Follow-up visit [id number] Madyson Moore 1980 Provider Department Center 11/24/2022 ARJUN ROSE MP PAIN Medical [facility] Family History Problem Relation Age of Onset Brain cancer Mother Breast cancer Sister Kidney cancer Maternal Grandmother Prostate cancer Paternal Grandfather Cancer Father Cancer Sister Family Status - Relation Status Age at Mother Sister Maternal Grandmother Paternal Grandfather Father Sister Level of Service:43889 [place] OFFICE/OUTPATIENT NEW MODERATE MDM 45-59 MINUTES (GC) Reason for Visit and Comments: Follow-up [040608] New Patient [632] - Knee pain, left s/p replacement May 2022 and November 01, [facility] 36on 11-23-2022 36 Keiry called patient and let her know that she has a pain management appointment for tomorrow at 8:15 am and if the pain is to bad she can go to the ER. [facility] Telephoneon 11-23-2022 Telephone [id number] Madyson Moore 1980 F Date Provider Department Center 11/23/2022 YASMANY AVALOS MP ORTHO MPORTHO Family History Problem Relation Age of Onset Brain cancer Mother Breast cancer Sister Kidney cancer Maternal Grandmother Prostate cancer Paternal Grandfather Cancer Father Cancer Sister Family Status - Relation Status Age at Mother Sister Maternal Grandmother Paternal Grandfather Father Sister Reason for Visit and Comments: Pain [136] - Patient sent message in portal regarding still having pain and not being seen by pain management yet. Josefina OZUNA spoke to Jorden Brody NP regarding this he stated she should go to the ED if the pain persists. I called her and updated her on this. I asked her if she has spoke to pain management to get an appointment she stated she has but they did not receive the referral. I reached out to pain management and got her an appointment tomorrow 11/24 at 810. Patient updated. Normal [facility] Follow-Upon 11-20-2022 Follow-Up [id number] Madyson Moore 1980 F Date Provider Department Center 11/20/2022 JORDEN DEWITT MP Family History Problem Relation Age of Onset Brain cancer Mother Breast cancer Sister Kidney cancer Maternal Grandmother Prostate cancer Paternal Grandfather Cancer Father Cancer Sister Family Status - Relation Status Age at Mother Sister Maternal Grandmother Paternal Grandfather Father Sister Level of Service:85617 [place] OFFICE/OUTPATIENT ESTABLISHED LOW MDM 20-29 MIN Reason for Visit and Comments: Follow-up [328972] Pain [136] [facility] Telephoneon 11-13-2022 Telephone [id number] Madyson Moore 1980 F Date Provider Department Center 11/13/2022 JORDEN DEWITT MP Family History Problem Relation Age of Onset Brain cancer Mother Breast cancer Sister Kidney cancer Maternal Grandmother Prostate cancer Paternal Grandfather Cancer Father Cancer Sister Family Status - Relation Status Age at Mother Sister Maternal Grandmother Paternal Grandfather Father Sister Normal [facility] 36on 11-10-2022 36 Attempted to call aditi marion. Left VM. Will attempt call again tomorrow. Normal [facility] Orders Onlyon 01-31-2023 Orders Only [id number] Madyson Moore 1980 F Date Provider Department Center 11/10/2022 YASMANY AVALOS MPRTTARIK Family History Problem Relation Age of Onset Brain cancer Mother Breast cancer Sister Kidney cancer Maternal Grandmother Prostate cancer Paternal Grandfather Cancer Father Cancer Sister Family Status - Relation Status Age at Mother Sister Maternal Grandmother Paternal Grandfather Father Sister Normal [facility] Telephoneon 11-10-2022 Telephone [id number] Madyson Moore 1980 F Date Provider Department Center 11/10/2022 YASMANY AVALOS MPRTTARIK Family History Problem Relation Age of Onset Brain cancer Mother Breast cancer Sister Kidney cancer Maternal Grandmother Prostate cancer Paternal Grandfather Cancer Father Cancer Sister Family Status - Relation Status Age at Mother Sister Maternal Grandmother Paternal Grandfather Father Sister Reason for Visit and Comments: follow up [Other] - Patient called regarding her test results and asking what the next steps were. I spoke to Jorden Brody, ALEC he stated her results were negative and that he spoke to Dr Lane and the next step is to put in a referal for pain management and physical therapy. Normal [facility] Orders Onlyon 11-05-2022 Orders Only [id number] Madyson Moore 1980 F Date Provider Department Center 11/05/2022 JORDEN DEWITT MP Family History Problem Relation Age of Onset Brain cancer Mother Breast cancer Sister Kidney cancer Maternal Grandmother Prostate cancer Paternal Grandfather Cancer Father Cancer Sister Family Status - Relation Status Age at Mother Sister Maternal Grandmother Paternal Grandfather Father Sister Normal [facility] BODY FLUID CELL DIFFERENTIAL on 11-03-2022 BASOPHILS TOTAL PER COUNTED LEUKOCYTES IN BODY FLUID BY MANUAL COUNT [facility] Comment on above: Order Comment: Maegan cherry from previous right knee aspiration sample that was received on 11/03/22 Differential performed on cytospin Performed By: #### L [id number] #### [facility] ([facility]) [address] [place] [address] CELLS COUNTED TOTAL (#) IN B NATALEE FLUID 100 Normal [facility] Comment on above: Order Comment: Pleas e pull from previous right knee aspiration sample that was received on 11/03/22 Differential performed on cytospin Performed By: #### L [id number] #### [facility] (BEAKER) [address] [place] [address] EOSINOPHILS TOTAL PER COUNTE D LEUKOCYTES IN BODY FLUID BY MANUAL COUNT 2 [facility] Comment on above: Order Comment: Pleas e pull from previous right knee aspiration sample that was received on 11/03/22 Differential performed on cytospin Performed By: #### L [id number] #### [facility] (BEAKER) [address] [place] [address] LYMPHOCYTES TOTAL PER COUNTE D LEUKOCYTES IN BODY FLUID BY MANUAL COUNT 36 [facility] Comment on above: Order Comment: Pleas e pull from previous right knee aspiration sample that was received on 11/03/22 Differential performed on cytospin Performed By: #### L [id number] #### [facility] (BEAKER) [address] [place] [address] MESOTHELIAL CELLS TOTAL PER COUNTED LEUKOCYTES IN BODY FLUID BY MANUAL COUN [facility] Comment on above: Order Comment: Pleas e pull from previous right knee aspiration sample that was received on 11/03/22 Differential performed on cytospin Performed By: #### L [id number] #### [facility] (BEAKER) [address] [place] [place] [address] MONOCYTES+MACROPHAGES TOTAL PER COUNTED LEUKOCYTES IN BODY FLUID BY MANUAL [address] [facility] Comment on above: Order Comment: Pleas e pull from previous right knee aspiration sample that was received on 11/03/22 Differential performed on cytospin Performed By: #### L [id number] #### [facility] (BEAKER) [address] [place] [address] NEUTROPHILS TOTAL PER COUNTE D LEUKOCYTES IN BODY FLUID BY MANUAL COUNT 55 [facility] Comment on above: Order Comment: Pleas e pull from previous right knee aspiration sample that was received on 11/03/22 Differential performed on cytospin Performed By: #### L [id number] #### [facility] ([facility]) [address] [place] [address] OTHER CELLS BODY FLUID (MANUAL) Normal [facility] Comment on above: Order Comment: Pleas e pull from previous right knee aspiration sample that was received on 11/03/22 Differential performed on cytospin Performed By: #### L [id number] #### [facility] (BEAKER) [address] [place] [address] BODY FLUID CULTUREon 023 Bacteria identified Cx Nom (Unsp spec) No growth at 5 days Normal [facility] Comment on above: Performed By: #### L [id number] #### [facility] (BEAKER) [address] [place] [address] GRAM STAIN RESULT Abnormal [facility] Comment on above: Result Comment: Many Polymorphonuclear leukocytes No organisms seen Performed By: #### L [id number] #### [facility] (BEAKER) [address] [place] [address] Follow-Upon 11-03-2022 Follow-Up [id number] Madyson Moore 1980 F Date Provider Department Center 11/03/2022 KEVIN ANGELES MP ORTHO MPORTHO Family History Problem Relation Age of Onset Brain cancer Mother Breast cancer Sister Kidney cancer Maternal Grandmother Prostate cancer Paternal Grandfather Cancer Father Cancer Sister Family Status - Relation Status Age at Mother Sister Maternal Grandmother Paternal Grandfather Father Sister Level of Service:56555 [place] OFFICE/OUTPATIENT ESTABLISHED LOW MDM 20-29 MIN (25) Reason for Visit and Comments: Pain [136] Normal [facility] GLUCOSE, BODY FLUIDon 2022 GLUCOSE (MG/DL) IN BODY FLUID 59 mg/dL Normal [facility] Comment on above: Result Comment: The reference range and other method performance specifications have not been established for this test in fluids. the test result should be integrated into the clinical context for interpretation. Performed By: #### L [id number] #### [facility] (BEAKER) [address] [place] [address] TYPE OF BODY FLUID Synovial Fluid Normal [facility] Comment on above: Performed By: #### L [id number] #### [facility] (BEAKER) [address] [place] [address] PATHOLOGY REVIEWon PATHOLOGY REVIEW Electronically betty d by Juanita Porter MD on 11/09/22 at 12:05 PM. Normal [facility] Comment on above: Order Comment: Maegan moseley pull from previous right knee aspiration sample that was received on 11/03/22 Performed By: #### L [id number] ####[facility] (BEAKER)[address] [place] [address] 36on 10-30-2022 36 I would recommmedn i f pain is really bad to go to ER to discuss reaspirating the knee as we got no results from last one. If not I would like to bring her in on Wednesday or Wednesday with gehling to aspirate ourselves. Normal [facility] Reminderson 10-29-2022 Reminders - From: Pinky Velarde To: EU - Recalls Hawkins; Sent: 10/14/2022 08:11:54 EST Show up: 10/26/2022 08:11:00 EST Subject: IVP Due Date/Time: 11/23/2022 08:11:00 EST Reminder/Recall Pt needs IVP and f/u in December 2022 left vm to get pt scheduled for appt and IVP Patient called back I got her scheduled in December and patient will be getting imaging done @ [facility]. Normal [facility] 36on 10-21-2022 36 See note above Normal [facility] BASIC METABOLIC PANELon 10-11 Anion gap [Moles/Vol] 8 mmol/L Normal 7-20 [facility] Comment on above: Performed By: #### L [id number] #### [facility] (BEAKER) [address] [place] [address] Calcium [Mass/Vol] 8.7 mg/dL Normal 8.6-10.3 [facility] Comment on above: Performed By: #### L [id number] #### [facility] [address] [place] [address] Chloride [Moles/Vol] 105 mmol/L Normal 98-107 [facility] Comment on above: Performed By: #### L [id number] #### [facility] [address] [place] [address] CO2 [Moles/Vol] 26 mmol/L Normal 21-31 [facility] Comment on above: Performed By: #### L [id number] #### [facility] ([facility]) [address] [place] [address] Creatinine [Mass/Vol] 0.63 mg/dL Normal 0.60-1.20 [facility] Comment on above: Performed By: #### L [id number] #### [facility] ([facility]) [address] [place] [address] GLOMERULAR FILTRATION RATE ML/MIN/1.73 SQ M.PREDICTED 112.6 mL/min/1.73m*2 Normal >60.0 [facility] Comment on above: Result Comment: The [facility]???s estimated glomerular filtration rate (eGFR) will no longer include consideration of race in its calculation. The National Kidney Foundation???s eGFR Task Force developed new recommendations for the estimation of the glomerular filtration rate in the [place] They recommend immediate implementation of the new equation refit without the race variable in all laboratories because the calculation does not include race. In addition to not including race in the calculation and reporting, it included diversity in its development, and has acceptable performance characteristics and potential consequences that do not disproportionately affect any one group of individuals. Performed By: #### L [id number] #### [facility] [address] [place] [address] Glucose [Mass/Vol] 86 mg/dL Normal 70-100 [facility] Comment on above: Performed By: #### L [id number] #### [facility] [address] [place] [address] Potassium [Moles/Vol] 4.3 mmol/L Normal 3.5-5.1 [facility] Comment on above: Performed By: #### L [id number] #### [facility] ([facility]) [address] [place] [address] Sodium [Moles/Vol] 139 mmol/L Normal 136-145 [facility] Comment on above: Performed By: #### L [id number] #### [facility] ([facility]) [address] [place] [address] Urea nitrogen [Mass/Vol] 15 mg/dL Normal 7-25 [facility] Comment on above: Performed By: #### L [id number] #### [facility] ([facility]) [address] [place] [address] UREA NITROGEN/CREATININE (MA SS RATIO) IN SER/PLAS 23.81 Normal [facility] Comment on above: Performed By: #### L [id number] #### [facility] ([facility]) [address] [place] [address] C-REACTIVE PROTEINon 023 C REACTIVE PROTEIN (MG/L) IN SER/PLAS 1.6 mg/L Normal 0.0-7.0 [facility] Comment on above: Performed By: #### L [id number] #### [facility] ([facility]) [address] [place] [address] CBC WITH AUTO DIFFERENTIALon 10-21-2022 Basophils (Bld) [#/Vol] 0.02 10*3/uL Normal 0.00-0.20 [facility] Comment on above: Performed By: #### L [id number] #### [facility] ([facility]) [address] [place] [address] Basophils/100 WBC (Bld) 0.3 % Normal 0.0-1.0 U [facility] Comment on above: Performed By: #### L [id number] #### [facility] ([facility]) [address] [place] [address] Eosinophils (Bld) [#/Vol] 0.02 10*3/uL Normal 0.00-0.5 0 [facility] Comment on above: Performed By: #### L [id number] #### [facility] [address] [place] [address] Eosinophils/100 WBC (Bld) 0.3 % Normal 0.0-6.0 [facility] Comment on above: Performed By: #### L [id number] #### [facility] ([facility]) [address] [place] [address] Erythrocyte distribution wid th (RBC) [Ratio] 17.2 % High 11.5-15.0 [facility] Comment on above: Performed By: #### L [id number] #### [facility] ([facility]) [address] [place] [address] ERYTHROCYTE MEAN CORPUSCULAR HEMOGLOBIN CONCENTRATION (G/DL) BY AUTOMATED 29.3 g/dL Low 32.0-35.0 [facility] Comment on above: Performed By: #### L [id number] #### [facility] ([facility]) [address] [place] [address] Hematocrit (Bld) [Volume fraction] 29.7 % Low 36.0-48.0 [facility] Comment on above: Performed By: #### L [id number] #### [facility] ([facility]) [address] [place] [address] Hemoglobin (Bld) [Mass/Vol] 8.7 g/dL Low 12.0-15. 0 [facility] Comment on above: Performed By: #### L [id number] #### [facility] ([facility]) [address] [place] [address] Immature granulocytes (Bld) [#/Vol] 0.02 10*3/uL Normal 0.00-0.20 [facility] Comment on above: Performed By: #### L [id number] #### [facility] (BEAKER) [address] [place] [address] Immature granulocytes/100 WBC (Bld) 0.3 % Normal 0.0-1.0 [facility] Comment on above: Performed By: #### L [id number] #### [facility] ([facility]) [address] [place] [address] Lymphocytes (Bld) [#/Vol] 2.29 10*3/uL Normal 1.20-4.0 0 [facility] Comment on above: Performed By: #### L [id number] #### [facility] ([facility]) [address] [place] [address] Lymphocytes/100 WBC (Bld) 31.8 % Normal 20.0-45.0 [facility] Comment on above: Performed By: #### L [id number] #### [facility] ([facility]) [address] [place] [address] MCH (RBC) [Entitic mass] 22.3 pg Low 27.0-33.0 [facility] Comment on above: Performed By: #### L [id number] #### [facility] [facility] ([facility]) [address] [place] [address] MCV (RBC) [Entitic vol] 76.2 fL Low 82.0-98.0 U [facility] Comment on above: Performed By: #### L [id number] #### [facility] ([facility]) [address] [place] [id number] Monocytes (Bld) [#/Vol] 0.53 10*3/uL Normal 0.10-1.00 [facility] Comment on above: Performed By: #### L [id number] #### [facility] ([facility]) [address] [place] [address] Monocytes/100 WBC (Bld) 7.4 % Normal 5.0-12.0 U [facility] Comment on above: Performed By: #### L [id number] #### [facility] ([facility]) [address] [place] [id number] Neutrophils (Bld) [#/Vol] 4.31 10*3/uL Normal 1.60-7.6 0 [facility] Comment on above: Performed By: #### L [id number] #### [facility] ([facility]) [address] [place] [id number] Neutrophils/100 WBC (Bld) 59.9 % Normal 40.0-72.0 [facility] Comment on above: Performed By: #### L [id number] #### [facility] ([facility]) [address] [place] [id number] NRBC (PER 100 WBCS) BY AUTOM ATED COUNT 0.0 % Normal 0.0-0.0 [facility] Comment on above: Performed By: #### L [id number] #### [facility] ([facility]) [address] [place] [id number] PLATELETS (10*3/UL) IN BLOOD AUTOMATED COUNT 243 10*3/uL Normal 150-400 [facility] Comment on above: Performed By: #### L [id number] #### [facility] ([facility]) [address] [place] [id number] RBC (Bld) [#/Vol] 3.90 10*6/uL Normal 3.80-5.00 [facility] Comment on above: Performed By: #### L [id number] #### [facility] ([facility]) [address] [place] [id number] WBC (Bld) [#/Vol] 7.19 10*3/uL Normal 4.00-10.60 [facility] Comment on above: Performed By: #### L [id number] #### [facility] ([facility]) [address] [place] [id number] CONSULTon 10-21-2022 CONSULT Attestation signed by Nain Steele MD at 10/22/2022 9:53 AM Patient discussed with me and I agree with the documentation. No evidence of infection with a negative aspiration and normal labs. Okay to follow-up with Dr. Lane as an outpatient. ORTHOPEDIC SURGERY CONSULTATION CHIEF COMPLAINT: Knee Pain HPI: Elvi Moore is a 41 y.o. female with Knee Pain. She is status post left TKA or revision with Dr. Lane on 06/01/2022. She states over the last week she has had worsening pain to the left knee, denies any trauma or other inciting event. She was see in the ED 1 week ago for same complaints, states it is a little worse today. Pain is worse with range of motion and weightbearing. Has not noticed any significant warmth, swelling, or redness. Denies any fevers, sweats, chills, or any other systemic symptoms. She does note that she was diagnosed with COVID about a week ago but feels she has recovered. Patient History Past Surgical History: Procedure Laterality Date APPENDECTOMY BARIATRIC SURGERY CHOLECYSTECTOMY HYSTERECTOMY KNEE ARTHROPLASTY Left 06/01/2022 revision KNEE ARTHROPLASTY Left 10/30/2021 KNEE SURGERY arthroscopy UMBILICAL HERNIA REPAIR Past Medical History: Diagnosis Date Arthritis Kidney stone Past Medical History: Diagnosis Date Arthritis Kidney stone Past Surgical History: Procedure Laterality Date APPENDECTOMY BARIATRIC SURGERY CHOLECYSTECTOMY HYSTERECTOMY KNEE ARTHROPLASTY Left 06/01/2022 revision KNEE ARTHROPLASTY Left 10/30/2021 KNEE SURGERY arthroscopy UMBILICAL HERNIA REPAIR Allergies Allergen Reactions Desonide Toradol [Ketorolac] Unknown Meperidine Rash No current facility-administered medications for this encounter. Current Outpatient Medications: acyclovir (Zovirax) 5 % ointment, acyclovir 5 % topical ointment, Disp: , Rfl: amitriptyline (Elavil) 25 mg tablet, Take 50 mg by mouth., Disp: , Rfl: aspirin 325 mg tablet, aspirin 325 mg tablet TAKE ONE TABLET BY MOUTH TWICE DAILY, Disp: , Rfl: calcium carbonate 600 mg calcium (1,500 mg) tablet, 300 mg., Disp: , Rfl: chlordiazepoxide-clidinium (Librax) 5-2.5 mg capsule, chlordiazepoxide-clidinium 5 mg-2.5 mg capsule, Disp: , Rfl: cyanocobalamin, vitamin B-12, 1,000 mcg/mL kit, Inject as directed every 30 (thirty) days., Disp: , Rfl: cyclobenzaprine (Flexeril) 10 mg tablet, cyclobenzaprine 10 mg tablet, Disp: , Rfl: dexAMETHasone (Decadron) 6 mg tablet, Take 6 mg by mouth., Disp: , Rfl: diclofenac (Voltaren) 1 % topical gel, apply 4 grams to affected area, Disp: , Rfl: dicyclomine (Bentyl) 20 mg tablet, Take 20 mg by mouth., Disp: , Rfl: docusate sodium (Colace) 100 mg capsule, docusate sodium 100 mg capsule TAKE ONE CAPSULE BY MOUTH TWICE DAILY, Disp: , Rfl: ferrous sulfate 325 (65 Fe) MG tablet, every 12 (twelve) hours., Disp: , Rfl: fluconazole (Diflucan) 100 mg tablet, fluconazole 100 mg tablet, Disp: , Rfl: hyoscyamine 0.125 mg dissolvable tablet, hyoscyamine 0.125 mg sublingual tablet, Disp: , Rfl: lidocaine (Lidoderm) 5 % patch, Place 1 patch on the skin if needed each day., Disp: , Rfl: multivitamin (Theragran-M) 9 mg iron-400 mcg tablet, Take 1 tablet by mouth in the morning., Disp: , Rfl: nirmatrelvir-ritonavir (Paxlovid, EUA,) 150-100 mg tablets,dose pack, Take 2 tablets by mouth twice a day., Disp: , Rfl: nystatin (Mycostatin) 100,000 unit/mL suspension, nystatin 100,000 unit/mL oral suspension, Disp: , Rfl: ondansetron ODT (Zofran-ODT) 4 mg disintegrating tablet, ondansetron 4 mg disintegrating tablet, Disp: , Rfl: pantoprazole (ProtoNix) 40 mg EC tablet, Take 40 mg by mouth., Disp: , Rfl: phenazopyridine (Pyridium) 100 mg tablet, Take 100 mg by mouth if needed in the morning, at noon, and at bedtime., Disp: , Rfl: polyethylene glycol (Glycolax) 17 gram/dose powder, polyethylene glycol 3350 17 gram/dose oral powder DISSOLVE 1 CAPFUL (17 GM) IN 8 OZ JUICE OR WATER AND DRINK ONCE A DAY NEEDED FOR CONSTIPATION. DO NOT USE FOR MORE THAN 2 WEEKS, Disp: , Rfl: promethazine (Phenergan) 25 mg suppository, Insert into the rectum., Disp: , Rfl: tamsulosin (Flomax) 0.4 mg 24 hr capsule, tamsulosin 0.4 mg capsule, Disp: , Rfl: tiZANidine (Zanaflex) 4 mg tablet, if needed., Disp: , Rfl: Social History Socioeconomic History Marital status: Spouse name: Not on file Number of children: Not on file Years of education: Not on file Highest education level: Not on file Occupational History Not on file Tobacco Use Smoking status: Former Types: Cigarettes Start date: 12/18/1997 Quit date: 01/19/2017 Years since quittin.7 Passive exposure: Current Smokeless tobacco: Never Vaping Use Vaping Use: Never used Substance and Sexual Activity Al (more content not included)... Normal [facility] EDPROVon 10-21-2022 EDPROV [facility] [address] [facility] [address] EMERGENCY DEPARTMENT ENCOUNTER CHIEF COMPLAINT Chief Complaint Patient presents with Knee Pain EMERGENCY DEPARMENT COURSE Vitals: Vitals: 10/21/22 1617 10/21/22 1900 BP: (!) 129/93 125/83 Pulse: 103 100 Resp: 19 18 Temp: 36.7 ???C (98 ???F) SpO2: 100% 100% Weight: 68 kg (150 lb) Height: 1.676 m (5' 6 ) BP: 125/83, Temp: 36.7 ???C (98 ???F), , Heart Rate: 100, Resp: 18 ED Course as of 10/22/22 0131 WedOct 21, 2022 1727 Patient discussed with orthopedic resident who will see and evaluate patient in the emergency room. [BH] 1746 orthopedic resident at bedside. States he will aspirate the knee. [] 183 Received this pt in sign out from ADITI Min. Reports pt with knee pain with h/o TKA with revision in may [address] Reports ortho has evaluated the pt and aspirated the knee. Reports just w/f ortho dispo [JS] 2036 Spoke with lab regarding delay in aspiration results, crime lab analyst reports no sample was received in lab. Spoke with ortho resident who reports they were unable to aspirate any fluid from the knee (dry tap) and that the pt is ok for dc home to fu with Dr Lane outpt. Ortho reports they reviewed all results. No other recommendations per orthopedics. [JS] 2041 Pt was evaluated by technical writer and editor. Pt tearful. Pt reports she has had left knee pain and swelling worsening over the last week or two. Pt reports she is ambulatory and able to range the knee but with pain. Pt reports she is unable to take IBU d/t stomach issues, but reports she is taking APAP without significant relief of pain. Pt denies acute injury to the knee. Pt reports she was instructed to come here by orthopedics. Pt denies fevers, chills, n/v/d, CP, SOB, abd pain. Left knee with effusion and TTP. Full, but painful ROM left knee. Ambulatory with cane. Pt was updated on results of testing and recommendation per orthopedics for outpt fu with Dr Lane. Pt verbalized understanding of recommendations and is agreeable to the plan. [JS] ED Course User Index [] ADITI Pascual [] ADITI White Diagnoses as of 10/22/22 0131 Left knee pain, unspecified chronicity DIAGNOSTIC RESULTS EKG: not indicated RADIOLOGY: Radiologist interpretation of the radiologic studies: XR knee 3 views left Final Result Impression: 1. No acute findings Electronically signed: Marcello Henriquez. LABS: Labs Reviewed SEDIMENTATION RATE - Abnormal Result Value Sed Rate 34 (*) CBC WITH AUTO DIFFERENTIAL - Abnormal Auto WBC 7.19 RBC 3.90 Hemoglobin 8.7 (*) Hematocrit 29.7 (*) MCV 76.2 (*) MCH 22.3 (*) MCHC 29.3 (*) RDW 17.2 (*) Neutrophils Relative 59.9 Lymphocytes Relative 31.8 Monocytes Relative 7.4 Eosinophils Relative 0.3 Basophils Relative 0.3 Neutrophils Absolute 4.31 Lymphocytes Absolute 2.29 Monocytes Absolute 0.53 Eosinophils Absolute 0.02 Basophils Absolute 0.02 Platelets 243 nRBC % 0.0 Immature Granulocytes Relative 0.3 Immature Granulocytes Absolute 0.02 BODY FLUID CULTURE AND ANAEROBIC CULTURE Narrative: The following orders were created for panel order Body fluid culture and anaerobic culture. Procedure Abnormality Status --------- ------ Body fluid culture[[id number]] Anaerobic culture[[id number]] Please view results for these tests on the individual orders. FUNGAL CULTURE BODY FLUID CULTURE ANAEROBIC CULTURE CBC AND DIFFERENTIAL Narrative: The following orders were created for panel order CBC and differential. Procedure Abnormality Status --------- ------ CBC auto differential[[id number]] Abnormal Final result Please view results for these tests on the individual orders. BASIC METABOLIC PANEL Sodium 139 Potassium 4.3 Chloride 105 CO2 26 BUN 15 Creatinine 0.63 Glucose 86 Calcium 8.7 Anion Gap 8 eGFR 112.6 BUN/Creatinine Ratio 23.81 C-REACTIVE PROTEIN BODY FLUID CELL COUNT WITH DIFFERENTIAL Narrative: The following orders were created for panel order Body fluid cell count with differential. Procedure Abnormality Status --------- ------ Body fluid cell count wit...[[id number]] Please view results for these tests on the individual orders. GLUCOSE, BODY FLUID SYNOVIAL FLUID, CRYSTAL BODY FLUID CELL COUNT WITH DIFFERENTIAL CONSULTS: Orthopedics PROCEDURES: attempted left knee aspiration by orthopedics FINAL IMPRESSION 1. Left knee pain, unspecified chronicity PATIENT REFERRED TO: [facility] Orthopedics [phone] Schedule an appointment as soon as possible for a visit DISCHARGE MEDICATIONS: Discharge Medication List as of 10/21/2022 9:02 PM I have reviewed the disposition diagnosis with the patient and/or their family/guardian. I have answered their questions and given discharge instructions. They voiced understanding of these instructions and d (more content not included)... Normal [facility] EDPROV [facility] [address] [facility] [address] EMERGENCY DEPARTMENT ENCOUNTER ED Room: CHIEF COMPLAINT Chief Complaint Patient presents with Knee Pain HISTORY OF PRESENT ILLNESS HPI patient is a 41-year-old female who had a left knee replacement and then revision in May of this year. Patient states that for the last couple of weeks she has had increased pain and swelling in her left knee. Symptoms began after having COVID. She denies any injuries or falls. She states that the pain has continued to worsen and now is extremely painful to bear weight. She was seen in the orthopedic office yesterday and evaluated with blood work. Lab work yesterday showed a normal C-reactive protein and CBC with elevation in sed rate of 25 with previous 8 days ago being 9. Patient states that she has been taking Tylenol and Motrin at home without any relief of symptoms. Patient called orthopedic office today and was told to come to the emergency room for evaluation. REVIEW OF SYSTEMS Review of Systems Constitutional: Negative for chills, fatigue and fever. Respiratory: Negative for cough, chest tightness, shortness of breath and wheezing. Cardiovascular: Negative for chest pain, palpitations and leg swelling. Musculoskeletal: Positive for arthralgias (left knee), gait problem and joint swelling. Skin: Negative. Neurological: Negative for weakness and numbness. PAST MEDICAL HISTORY has a past medical history of Anemia, Anxiety, Arthritis, Depression, GERD (gastroesophageal reflux disease), Kidney stone, Pancreatitis, Peptic ulcer, and PONV (postoperative nausea and vomiting). SURGICAL HISTORY has a past surgical history that includes Appendectomy; Bariatric Surgery; Cholecystectomy; Hysterectomy; Knee surgery; Umbilical hernia repair; Knee Arthroplasty (Left, 06/01/2022); Knee Arthroplasty (Left, 10/30/2021); Tubal ligation; Cystoscopy; and Inner ear surgery. CURRENT MEDICATIONS Discharge Medication List as of 10/21/2022 9:02 PM CONTINUE these medications which have NOT CHANGED Details calcium carbonate 600 mg calcium (1,500 mg) tablet 300 mg., Starting 08/21/2018, Historical Med cyanocobalamin, vitamin B-12, 1,000 mcg/mL kit Inject as directed every 30 (thirty) days., Historical Med diclofenac (Voltaren) 1 % topical gel apply 4 grams to affected area, Historical Med ferrous sulfate 325 (65 Fe) MG tablet every 12 (twelve) hours., Starting 08/21/2018, Historical Med multivitamin (Theragran-M) 9 mg iron-400 mcg tablet Take 1 tablet by mouth in the morning., Historical Med ondansetron ODT (Zofran-ODT) 4 mg disintegrating tablet ondansetron 4 mg disintegrating tablet, Historical Med pantoprazole (ProtoNix) 40 mg EC tablet Take 40 mg by mouth., Starting Wed10/23/2014, Historical Med tiZANidine (Zanaflex) 4 mg tablet if needed., Starting Wed08/19/2012, Historical Med acyclovir (Zovirax) 5 % ointment acyclovir 5 % topical ointment, Historical Med amitriptyline (Elavil) 25 mg tablet Take 50 mg by mouth., Starting Wed06/29/2022, Historical Med aspirin 325 mg tablet aspirin 325 mg tablet TAKE ONE TABLET BY MOUTH TWICE DAILY, Historical Med chlordiazepoxide-clidinium (Librax) 5-2.5 mg capsule chlordiazepoxide-clidinium 5 mg-2.5 mg capsule, Historical Med cyclobenzaprine (Flexeril) 10 mg tablet cyclobenzaprine 10 mg tablet, Historical Med dexAMETHasone (Decadron) 6 mg tablet Take 6 mg by mouth., Historical Med dicyclomine (Bentyl) 20 mg tablet Take 20 mg by mouth., Starting Wed02/25/2018, Historical Med docusate sodium (Colace) 100 mg capsule docusate sodium 100 mg capsule TAKE ONE CAPSULE BY MOUTH TWICE DAILY, Historical Med fluconazole (Diflucan) 100 mg tablet fluconazole 100 mg tablet, Historical Med hyoscyamine 0.125 mg dissolvable tablet hyoscyamine 0.125 mg sublingual tablet, Historical Med lidocaine (Lidoderm) 5 % patch Place 1 patch on the skin if needed each day., Starting Wed10/02/2022, Historical Med nirmatrelvir-ritonavir (Paxlovid, EUA,) 150-100 mg tablets,dose pack Take 2 tablets by mouth twice a day., Historical Med nystatin (Mycostatin) 100,000 unit/mL suspension nystatin 100,000 unit/mL oral suspension, Historical Med phenazopyridine (Pyridium) 100 mg tablet Take 100 mg by mouth if needed in the morning, at noon, and at bedtime., Historical Med polyethylene glycol (Glycolax) 17 gram/dose powder polyethylene glycol 3350 17 gram/dose oral powder DISSOLVE 1 CAPFUL (17 GM) IN 8 OZ JUICE OR WATER AND DRINK ONCE A DAY NEEDED FOR CONSTIPATION. DO NOT USE FOR MORE THAN 2 WEEKS, Historical Med promethazine (Phenergan) 25 mg suppository Insert into the rectum., Starting 06/29/2022, Historical Med tamsulosin (Flomax) 0.4 mg 24 hr capsule tamsulosin 0.4 mg capsule, Historical Med ALLERGIES is allergic to toradol [ketorolac], compazine [prochlorperazine], and (more content not included)... Normal [facility] SEDIMENTATION RATEon 023 SEDIMENTATION RATE, ERYTHROCYTE 34 mm/hr High <=20 [facility] Comment on above: Performed By: #### L [id number] #### [facility] ([facility]) [address] [place] [address] C-REACTIVE PROTEINon 023 C REACTIVE PROTEIN (MG/L) IN SER/PLAS 2.0 mg/L Normal 0.0-7.0 [facility] Comment on above: Performed By: #### L [id number] #### [facility] ([facility]) [address] [place] [address] Office Visiton 10-20-2022 Follow-up visit [id number] TeresaMadyson ma 1980 F Date Provider Department Center 10/20/2022 JORDEN DEWITT [facility]TH[facility] Family History Problem Relation Age of Onset Brain cancer Mother Breast cancer Sister Kidney cancer Maternal Grandmother Prostate cancer Paternal Grandfather Cancer Father Cancer Sister Family Status - Relation Status Age at Mother Sister Maternal Grandmother Paternal Grandfather Father Sister Level of Service:47187 [place] OFFICE/OUTPATIENT ESTABLISHED LOW MDM 20-29 MIN Reason for Visit and Comments: Follow-up [215428] Normal [facility] SEDIMENTATION RATEon 023 SEDIMENTATION RATE, ERYTHROCYTE 25 mm/hr High <=20 [facility] Comment on above: Performed By: #### L [id number] #### [facility] ([facility]) [address] [place] [address] 36on 10-15-2022 36 Lets get appointment scheduled Normal [facility] C-REACTIVE PROTEINon 023 C REACTIVE PROTEIN (MG/L) IN SER/PLAS 1.4 mg/L Normal 0.0-7.0 [facility] Comment on above: Performed By: #### L [id number] #### [facility] ([facility]) [address] [place] [address] CONSULTon 10-13-2022 CONSULT Attestation signed by Sorin Shafer MD at 10/13/2022 9:58 PM I did not personally examine the patient. I discussed the case with the resident/fellow. Teaching Physician's Revisions: None Reason For Consult knee pain Referring Provider: ED History Of Present Illness Elvi Moore is a 41 y.o. female presenting with Knee Pain. She is status post left TKA or revision with Dr. Lane on 06/01/2022. She states over the last 2 or 3 days she has had worsening pain to the left knee, denies any trauma or other inciting event. Pain is worse with range of motion and weightbearing. Has not noticed any significant warmth, swelling, or redness. Denies any fevers, sweats, chills, or any other systemic symptoms. She does note that she was diagnosed with COVID about a week ago but feels she has recovered. Past Medical History She has a past medical history of Arthritis and Kidney stone. Surgical History She has a past surgical history that includes Appendectomy; Bariatric Surgery; Cholecystectomy; Hysterectomy; Knee surgery; Umbilical hernia repair; Knee Arthroplasty (Left, 06/01/2022); and Knee Arthroplasty (Left, 10/30/2021). Family History Family History Problem Relation Name Age of Onset Brain cancer Mother Breast cancer Sister Kidney cancer Maternal Grandmother Prostate cancer Paternal Grandfather Cancer Father Tye Melanin Cancer Sister La Nena Nichole Social History She reports that she quit smoking about 5 years ago. Her smoking use included cigarettes. She started smoking about 24 years ago. She has been exposed to tobacco smoke. She has never used smokeless tobacco. She reports current drug use. Drug: Hydrocodone. She reports that she does not drink alcohol. Allergies Desonide, Toradol [ketorolac], and Meperidine Medications (Not in a hospital admission) No current facility-administered medications for this encounter. Last Recorded Vitals Patient Vitals for the past 24 hrs: BP Temp Pulse Resp SpO2 Height Weight 10/13/22 0841 (!) 140/100 36.6 ???C (97.8 ???F) 96 16 100 % 1.676 m (5' 6 ) 67.1 kg (148 lb) Physical Exam General: Aox3, moderate distress 2/2 pain, tearful LLE: Tender to palpation to knee, left, anterior, posterior, medial, Otherwise non-tender to palpation, Calf non-tender to palpation, No swelling, no warmth, no erythema, compartments soft and compressible, motor intact DF/PF/EHL, sensation intact t/sp/dp/s/s, good cap refill, no open wounds or lesions, and well-healed midline incision, no sinus tract or other lesions Relevant Results No visits with results within 1 Day(s) from this visit. Latest known visit with results is: Hospital Outpatient Visit on 05/27/2022 Component Date Value Ref Range Status Glucose POC 06/01/2022 86 70 - 100 mg/dL Final Culture Result 06/01/2022 No Anaerobes Isolated 5 Days Final Culture Result 06/01/2022 No Anaerobes Isolated 5 Days Final Culture Result 06/01/2022 No Anaerobes Isolated 5 Days Final Gram Stain 06/01/2022 Quantity Not Sufficient Final Culture Result 06/01/2022 No Growth Day 5 Final Gram Stain 06/01/2022 Many Polys Final Gram Stain 06/01/2022 No Bacteria Seen Final Culture Result 06/01/2022 No Growth Day 5 Final Gram Stain 06/01/2022 Many Polys Final Gram Stain 06/01/2022 No Bacteria Seen Final Culture Result 06/01/2022 No Growth Day 5 Final XR knee 1 or 2 views left Result Date: 10/13/2022 No acute pathology Electronically signed: Yvette Desai. No CT results found for the past 24 hours No MRI results found for the past 24 hours Assessment/Plan Active Problems: There are no active Hospital Problems. Elvi Moore is a 41 y.o. female with several days of left knee pain, history of left TKA revision on 06/01/2022. She presents with several days of worsening pain to the left knee without any trauma or other inciting event, although she was recently sick with COVID. X-ray of the left knee negative for any apparent complication, ultrasound of left lower extremity negative for DVT. Clinical evaluation is not extremely concerning for PJI as there is no obvious warmth, redness, or swelling to the knee. She does note pain with range of motion and weightbearing. We will get ESR and CRP prior to discharge and follow-up those results with her in the next several days, will arrange outpatient follow-up as needed pending results and symptomatic worsening or improvement over the next several days as well. She does specifically ask for Wade for pain and states she does not tolerate any NSAIDS. I am hesitant to prescribe, or advise ED providers to prescribe, any narcotics for pain control as review of OARRS demonstrates that patient gets narcotic pain medications quite frequently from different providers and prior orthopedic clinic notes specifi (more content not included)... Normal [facility] EDPROVon 10-13-2022 EDPROV HPI Chief Complaint Patient presents with ??? Knee Pain States left sided new pain x 2 days Pt states she had left knee replacement in October last year and a revision in May by Dr. Lane. Pt c/o left knee pain for the past 2 days that is mostly in the back of her knee and radiates to the front. She states she has been unable to fully straighten or flex the knee since the pain began but denies any injury, swelling, calf pain, sob, chest pain, fever, chills, body aches. History provided by: Patient Mascot Coma Scale Score: 15 Patient History Past Medical History: Diagnosis Date ??? Arthritis ??? Kidney stone Past Surgical History: Procedure Laterality Date ??? APPENDECTOMY ??? BARIATRIC SURGERY ??? CHOLECYSTECTOMY ??? HYSTERECTOMY ??? KNEE ARTHROPLASTY Left 06/01/2022 revision ??? KNEE ARTHROPLASTY Left 10/30/2021 ??? KNEE SURGERY arthroscopy ??? UMBILICAL HERNIA REPAIR Family History Problem Relation Name Age of Onset ??? Brain cancer Mother ??? Breast cancer Sister ??? Kidney cancer Maternal Grandmother ??? Prostate cancer Paternal Grandfather ??? Cancer Father Tye Main ??? Cancer Sister January Dayanara Social History Tobacco Use ??? Smoking status: Former Types: Cigarettes Start date: 12/18/1997 Quit date: 01/19/2017 Years since quittin.7 Passive exposure: Current ??? Smokeless tobacco: Never Vaping Use ??? Vaping Use: Never used Substance Use Topics ??? Alcohol use: Never ??? Drug use: Yes Types: Hydrocodone Review of Systems Review of Systems Constitutional: Negative. Musculoskeletal: Positive for arthralgias. Physical Exam ED Triage Vitals [10/13/22 0841] Temp Heart Rate Resp BP 36.6 ???C (97.8 ???F) 96 16 (!) 140/100 SpO2 Temp src Heart Rate Source Patient Position 100 % -- -- -- BP Location FiO2 (%) -- -- Physical Exam Vitals reviewed. Constitutional: General: She is not in acute distress. Appearance: Normal appearance. She is not ill-appearing, toxic-appearing or diaphoretic. HENT: Head: Normocephalic and atraumatic. Musculoskeletal: Comments: Left knee- mild tenderness to posterior knee. Limited ROM. Mild swelling present. No erythema, no deformity or ecchymosis. Neurovascular intact distally. No calf tenderness. Neurological: Mental Status: She is alert. Procedures ED Course & MDM ED Course as of 10/13/22 1156 Tue Oct 13, 2022 1044 Discussed case with Ortho, they will evaluate in ED. [BM] 1153 Ortho ordered ESR, CRP but state pt can be discharged home and they will follow up with her about results. They did not tap the knee and did not recommend any pain control for pt as she recently has received multiple prescriptions for norco from different providers. Duplex neg for DVT, no acute findings on x-ray. [BM] ED Course User Index [BM] Dusty Womack NP Diagnoses as of 10/13/22 1156 Acute pain of left knee Medical Decision Making Attestion Dusty WomackALEC 10/13/22 0938 Normal [facility] SEDIMENTATION RATEon 023 SEDIMENTATION RATE, ERYTHROCYTE 9 mm/hr Normal <=20 [facility] Comment on above: Performed By: #### L [id number] #### [facility] (BEAKER) [address] [place] [address] Covid-19 PCR ([facility])on 09-11 SARS-CoV-2 (COVID-19) RNA MAMIE+probe Ql (Unsp spec) Detected Critically abnormal NOT DETECTED [facility] Comment on above: Result Comment: This test is not yet approved or cleared by the [place] FDA. When there are no FDA-approved or cleared tests available, and other criteria are met, FDA can make tests available under an emergency access mechanism called an Emergency Use Authorization (EUA). The EUA for this test is supported by the Check Out Cashier of Health and Human Service's (HHS's) declaration that circumstances exist to justify the emergency use of in vitro diagnostics for the detection and/or diagnosis of the virus that causes COVID-19. This EUA will remain in effect (meaning this test can be used) for the duration of the COVID-19 declaration justifying emergency of IVDs, unless it is terminated or revoked by FDA (after which the test may no longer be used). Performed By: #### C VDTBH #### [facility] [address] [place] [address] Dr. Idania Roldan INFLUENZA A AND B AGon 10-06 INFLUANEGH SEE BELOW Normal [facility] Comment on above: Result Comment: Nega tive for Flu A protein angiten. Infection due to Flu A cannot be ruled out. Flu A angiten in the sample may be below the detection limit of the test. Performed By: #### P T, PTT #### [facility] [address] [address] [address] Idania Roldan [facility] SEE BELOW Normal [facility] Comment on above: Result Comment: Nega tive for Flu B protein antigen. Infection due to Flu B cannot be ruled out. Flu B antigen in the sample may be below the detection limit of the test. Performed By: #### P T, PTT #### [facility] [address] [place] [address] Dr. Idania Roldan INFLUENZA A AG Negative Normal NEGATIVE SEE COMMENT [facility] Comment on above: Performed By: #### P T, PTT #### [facility] [address] [place] [address] Dr. Idania Roldan INFLUENZA B AG Negative Normal NEGATIVE SEE COMMENT [facility] Comment on above: Performed By: #### P T, PTT #### [facility] [address] [place] [address] Dr. Idania Roldan INTERNAL CONTROLS Within Normal Limits Normal Wi thin Normal Limits [facility] Comment on above: Performed By: #### P T, PTT #### [facility] [address] [place] [address] Dr. Idania Roldan AMYLASEon 09-30-2022 Amylase [Catalytic activity/Vol] 62 U/L Normal 25- 115 [facility] Comment on above: Performed By: #### B MP, LIPA, YVETTE, LIVER #### [facility] [address] [place] [address] Dr. Idania Roldan CBC AUTO DIFFon 09-30-2022 BASO # 0.0 103/ul Normal 0.0-0.1 [facility] Comment on above: Performed By: #### C BC #### [facility] [address] [place] [address] Dr. Idania Roldan Basophils/100 WBC (Bld) 0.3 % Normal 0.2-2.0 [facility] Comment on above: Performed By: #### C BC #### [facility] [address] [place] [address] Dr. Idania Roldan EO # 0.1 103/ul Normal 0.0-0.7 [facility] Comment on above: Performed By: #### C BC #### [facility] [address] [place] [address] Dr. Idania Roldan Eosinophils/100 WBC (Bld) 1.2 % Normal 0.9-7.0 [facility] Comment on above: Performed By: #### C BC #### [facility] [address] [place] [address] Dr. Idania Roldan Erythrocyte distribution wid th (RBC) [Ratio] 14.8 % Normal 11.0-15.0 [facility] Comment on above: Performed By: #### C BC #### [facility] [address] [place] [address] Dr. Idania Roldan Hematocrit (Bld) [Volume fraction] 31.8 % Critically low 36.0-48.0 [facility] Comment on above: Performed By: #### C BC #### [facility] [address] [place] [address] Dr. Idania Roldan Hemoglobin (Bld) [Mass/Vol] 9.6 g/dL Critically low 12.0 -16.0 [facility] Comment on above: Performed By: #### C BC #### [facility] [address] [place] [address] Dr. Idania Roldan IG # 0.01 10e3/ul Normal 0.00-0.03 [facility] Comment on above: Performed By: #### C BC #### [facility] [address] [place] [address] Dr. Idania Roldan IG % 0.1 % Normal 0.0-0.5 [facility] Comment on above: Performed By: #### C BC #### [facility] [address] [place] [address] Dr. Idania Roldan LYMPH # 3.3 103/ul Normal 1.2-3.8 [facility] Comment on above: Performed By: #### C BC #### [facility] [address] [place] [address] Dr. Idania Roldan Lymphocytes/100 WBC (Bld) 45.4 % Normal 20.5-60.0 [facility] Comment on above: Performed By: #### C BC #### [facility] [address] [place] [address] Dr. Idanai Roldan MANUAL DIFF REQ NO Normal [facility] Comment on above: Performed By: #### C BC #### [facility] [address] [place] [address] Dr. Idania Roldan MCH (RBC) [Entitic mass] 22.7 pg Critically low 26.7-34 .0 [facility] Comment on above: Performed By: #### C BC #### [facility] [address] [place] [address] Dr. Idania Roldan MCHC (RBC) [Mass/Vol] 30.2 g/dL Normal 29.9-35.2 [facility] Comment on above: Performed By: #### C BC #### [facility] [address] [place] [address] Dr. Idania Roldan MCV (RBC) [Entitic vol] 75.4 fL Critically low 81.0-99. 0 [facility] Comment on above: Performed By: #### C BC #### [facility] [address] [place] [address] Dr. Idania Roldan MONO # 0.5 103/ul Normal 0.3-0.8 [facility] Comment on above: Performed By: #### C BC #### [facility] [address] [place] [address] Dr. Idania Roldan Monocytes/100 WBC (Bld) 6.2 % Normal 1.7-12.0 [facility] Comment on above: Performed By: #### C BC #### [facility] [address] [place] [address] Dr. Idania Roldan NEUT # 3.4 103/ul Normal 1.4-6.5 [facility] Comment on above: Performed By: #### C BC #### [facility] [address] [place] [address] Dr. Idania Roldan Neutrophils/100 WBC (Bld) 46.8 % Normal 43.0-75.0 [facility] Comment on above: Performed By: #### C BC #### [facility] [address] [address] [address] Idania Roldan Platelet mean volume (Bld) [Entitic vol] 8.5 fL Critically low 9.5-13.5 [facility] Comment on above: Performed By: #### C BC #### [facility] [address] [place] [address] Dr. Idania Roldan PLT 273 103/ul Normal 150-450 [facility] Comment on above: Performed By: #### C BC #### [facility] [address] [place] [address] Dr. Idania Roldan RBC 4.22 106/ul Normal 4.20-5.40 [facility] Comment on above: Performed By: #### C BC #### [facility] [address] [place] [address] Dr. Idania Roldan WBC 7.2 103/ul Normal 4.0-11.0 [facility] Comment on above: Performed By: #### C BC #### [facility] [address] [place] [address] Dr. Idania Roldan CULTURE URINEon 09-30-2022 CULTURE URINE Culture Observations : MODERATE GROWTH OF MIXED GENITAL ALE. NO POTENTIAL PATHOGENS SEEN. Normal [facility] Comment on above: Performed By: #### P T, PTT #### [facility] [address] [place] [address] Dr. Idania Roldan LIPASEon 09-30-2022 Lipase [Catalytic activity/Vol] 256.0 U/L Normal 73.0 -393.0 [facility] Comment on above: Performed By: #### B MP, LIPA, YVETTE, LIVER #### [facility] [address] [place] [address] Dr. Idania Roldan PROF 14(COMP METB)on 022 Albumin [Mass/Vol] 4.1 g/dL Normal 3.4-5.0 [facility] Comment on above: Performed By: #### B MP, LIPA, YVETTE, LIVER #### [facility] [address] [address] [address] Idania Roldan Albumin/Globulin [Mass ratio] 1.0 {ratio} Normal [facility] Comment on above: Performed By: #### B MP, LIPA, YVETTE, LIVER #### [facility] [address] [address] [address] Idania Roldan ALP [Catalytic activity/Vol] 93 U/L Normal 46-116 [facility] Comment on above: Performed By: #### B MP, LIPA, YVETTE, LIVER #### [facility] [address] [address] [address] Idania Roldan ALT [Catalytic activity/Vol] 13 U/L Critically low 14- 59 [facility] Comment on above: Performed By: #### B MP, LIPA, YVETTE, LIVER #### [facility] [address] [place] [address] Dr. Idania Roldan Anion gap [Moles/Vol] 9.8 mmol/L Normal [facility] Comment on above: Performed By: #### B MP, LIPA, YVETTE, LIVER #### [facility] [address] [place] [address] Dr. Idania Roldan AST [Catalytic activity/Vol] 12 U/L Critically low 15- 37 [facility] Comment on above: Performed By: #### B MP, LIPA, YVETTE, LIVER #### [facility] [address] [place] [address] Dr. Idania Roldan Bilirubin [Mass/Vol] 0.2 mg/dL Normal 0.2-1.0 [facility] Comment on above: Performed By: #### B MP, LIPA, YVETTE, LIVER #### [facility] [address] [address] [address] Idania Roldan Calcium [Mass/Vol] 9.2 mg/dL Normal 8.5-10.1 [facility] Comment on above: Performed By: #### B MP, LIPA, YVETTE, LIVER #### [facility] [address] [address] [address] Idania Roldan Chloride [Moles/Vol] 101 mmol/L Normal 98-107 [facility] Comment on above: Performed By: #### B MP, LIPA, YVETTE, LIVER #### [facility] [address] [place] [address] Dr. Idania Roldan CO2 [Moles/Vol] 31.8 mmol/L Normal 21.0-32.0 [facility] Comment on above: Performed By: #### B MP, LIPA, YVETTE, LIVER #### [facility] [address] [place] [address] Dr. Idania Roldan Creatinine [Mass/Vol] 0.71 mg/dL Normal 0.55-1.02 [facility] Comment on above: Performed By: #### B MP, LIPA, YVETTE, LIVER #### [facility] [address] [place] [address] Dr. Idania Roldan EGFR-AF CENTRAL AFRICAN >60 Normal >=60 [facility] Comment on above: Performed By: #### B MP, LIPA, YVETTE, LIVER #### [facility] [address] [place] [address] Dr. Idania Roldan EGFR-NON AF CENTRAL AFRICAN >60 Normal >=60 [facility] Comment on above: Performed By: #### B MP, LIPA, YVETTE, LIVER #### [facility] [address] [place] [address] Dr. Idania Roldan Globulin (S) [Mass/Vol] 4.0 g/dL Normal [facility] Comment on above: Performed By: #### B MP, LIPA, YVETTE, LIVER #### [facility] [address] [place] [address] Dr. Idania Roldan Glucose [Mass/Vol] 92 mg/dL Normal 74-106 [facility] Comment on above: Performed By: #### B MP, LIPA, YVETTE, LIVER #### [facility] [address] [place] [address] Dr. Idania Roldan Potassium [Moles/Vol] 3.6 mmol/L Normal 3.5-5.1 [facility] Comment on above: Performed By: #### B MP, LIPA, YVETTE, LIVER #### [facility] [address] [place] [address] Dr. Idania Roldan Protein [Mass/Vol] 8.1 g/dL Normal 6.4-8.2 [facility] Comment on above: Performed By: #### B MP, LIPA, YVETTE, LIVER #### [facility] [address] [place] [address] Dr. Idania Roldan Sodium [Moles/Vol] 139 mmol/L Normal 136-145 [facility] Comment on above: Performed By: #### B MP, LIPA, YVETTE, LIVER #### [facility] [address] [place] [address] Dr. Idania Roldan Urea nitrogen [Mass/Vol] 15.0 mg/dL Normal 7.0-18.0 [facility] Comment on above: Performed By: #### B MP, LIPA, YVETTE, LIVER #### [facility] [address] [place] [address] Dr. Idania Roldan Urea nitrogen/Creatinine [Mass ratio] 21.1 mg/mg Normal [facility] Comment on above: Performed By: #### B MP, LIPA, YVETTE, LIVER #### [facility] [address] [place] [address] Dr. Idania Roldan UA RANDOM W/MICROSCOPICon BACTERIA SMALL Abnormal NONE SEEN [facility] Comment on above: Performed By: #### B MP, LIPA, YVETTE, LIVER #### [facility] [address] [place] [address] Dr. Idania Roldan Bilirubin Ql (U) Negative Normal NEGATIVE [facility] Comment on above: Performed By: #### B MP, LIPA, YVETTE, LIVER #### [facility] [address] [place] [address] Dr. Idania Roldan CAST NONE SEEN Normal NONE SEEN [facility] Comment on above: Performed By: #### B MP, LIPA, YVETTE, LIVER #### [facility] [address] [place] [address] Dr. Idania Roldan Clarity (U) CLEAR Normal CLEAR [facility] Comment on above: Performed By: #### B MP, LIPA, YVETTE, LIVER #### [facility] [address] [address] [address] Idania Roldan Color (U) YELLOW Normal YELLOW [facility] Comment on above: Performed By: #### B MP, LIPA, YVETTE, LIVER #### [facility] [address] [address] [address] Idania Roldan Crystals LM Nom (Urine sed) NONE SEEN Normal NONE SEE N [facility] Comment on above: Performed By: #### B MP, LIPA, YVETTE, LIVER #### [facility] [address] [address] [address] Idania Roldan Epithelial cells LM Ql (Urine sed) FEW Abnormal N ONE SEEN /RARE [facility] Comment on above: Performed By: #### B MP, LIPA, YVETTE, LIVER #### [facility] [address] [place] [address] Dr. Idania Roldan Glucose Ql (U) Negative Normal NEGATIVE [facility] Comment on above: Performed By: #### B MP, LIPA, YVETTE, LIVER #### [facility] [address] [address] [address] Idania Roldan Hemoglobin Ql (U) Negative Normal NEGATIVE [facility] Comment on above: Performed By: #### B MP, LIPA, YVETTE, LIVER #### [facility] [address] [address] [address] Idania Roldan Ketones Ql (U) Negative Normal NEGATIVE [facility] Comment on above: Performed By: #### B MP, LIPA, YVETTE, LIVER #### [facility] [address] [address] [address] Idania Roldan LEUKOCYTES SMALL Abnormal NEGATIVE [facility] Comment on above: Performed By: #### B MP, LIPA, YVETTE, LIVER #### [facility] [address] [address] [address] Idania Roldan MUCOUS TRACE Abnormal NONE SEEN [facility] Comment on above: Performed By: #### B MP, LIPA, YVETTE, LIVER #### [facility] [address] [place] [address] Dr. Idania Roldan Nitrite Ql (U) Negative Normal NEGATIVE [facility] Comment on above: Performed By: #### B MP, LIPA, YVETTE, LIVER #### [facility] [address] [place] [address] Dr. Idania Roldan pH (U) 7.0 [pH] Normal 5-9 [facility] Comment on above: Performed By: #### B MP, LIPA, YVETTE, LIVER #### [facility] [address] [place] [address] Dr. Idania Roldan RBC NONE SEEN Abnormal 0-2 [facility] Comment on above: Performed By: #### B MP, LIPA, YVETTE, LIVER #### [facility] [address] [place] [address] Dr. Idania Roldan SPEC GRAVITY 1.015 Normal 1.005-<=1.025 [facility] Comment on above: Performed By: #### B MP, LIPA, YVETTE, LIVER #### [facility] [address] [place] [address] Dr. Idania Roldan UA PROTEIN Negative Normal NEGATIVE/ TRACE [facility] Comment on above: Performed By: #### B MP, LIPA, YVETTE, LIVER #### [facility] [address] [place] [address] Dr. Idania Roldan Urobilinogen Qn (U) 0.2 {Bryan'U}/dL Normal 0.2 - 1. 0 [facility] Comment on above: Performed By: #### B MP, LIPA, YVETTE, LIVER #### [facility] [address] [place] [address] Dr. Idania Roldan WBC 5-10 Abnormal NONE SEEN [facility] Comment on above: Performed By: #### B MP, LIPA, YVETTE, LIVER #### [facility] [address] [place] [address] Dr. Idania Roldan Covid-19 PCR ([facility])on 09-10 SARS-CoV-2 (COVID-19) RNA MAMIE+probe Ql (Unsp spec) Not detected Normal NOT DETECTED [facility] Comment on above: Result Comment: This test is not yet approved or cleared by the [place] FDA. When there are no FDA-approved or cleared tests available, and other criteria are met, FDA can make tests available under an emergency access mechanism called an Emergency Use Authorization (EUA). The EUA for this test is supported by the Check Out Cashier of Health and Human Service's (HHS's) declaration that circumstances exist to justify the emergency use of in vitro diagnostics for the detection and/or diagnosis of the virus that causes COVID-19. This EUA will remain in effect (meaning this test can be used) for the duration of the COVID-19 declaration justifying emergency of IVDs, unless it is terminated or revoked by FDA (after which the test may no longer be used). When diagnostic testing is negative, the possibility of a false negative should be considered in the context of a patient's recent exposures and the presence of clinical signs and symptoms consistent with SARS-CoV-2. Performed By: #### C VDTBH #### [facility] [address] [place] [address] Dr. Idania Roldan INFLUENZA A AND B [facility] 09-21 [facility] SEE BELOW Normal [facility] Comment on above: Result Comment: Nega tive for Flu A protein angiten. Infection due to Flu A cannot be ruled out. Flu A angiten in the sample may be below the detection limit of the test. Performed By: #### B MP, LIPA, YVETTE, LIVER #### [facility] [address] [place] [address] Dr. Idania Roldan INFLUBNEG SEE BELOW Normal [facility] Comment on above: Result Comment: Nega tive for Flu B protein antigen. Infection due to Flu B cannot be ruled out. Flu B antigen in the sample may be below the detection limit of the test. Performed By: #### B MP, LIPA, YVETTE, LIVER #### [facility] [address] [place] [address] Dr. Idania Roldan INFLUENZA A AG Negative Normal NEGATIVE SEE COMMENT [facility] Comment on above: Performed By: #### B MP, LIPA, YVETTE, LIVER #### [facility] [address] [address] [address] Idania Roldan INFLUENZA B AG Negative Normal NEGATIVE SEE COMMENT [facility] Comment on above: Performed By: #### B JOSE ALBERTO MOCTEZUMA, YVETTE, LIVER #### [facility] [address] [place], [place] [address] Dr. Idania Roldan INTERNAL CONTROLS Within Normal Limits Normal Wi thin Normal Limits [facility] Comment on above: Performed By: #### B JOSE ALBERTO MOCTEZUMA, YVETTE, LIVER #### [facility] [address] [place], [place] [address] Dr. Idania Rold[facility] SARS-CoV-2 (COVID-19) RNA MAMIE+probe Ql (Unsp spec) Not detected Normal NOT DETECTED [facility] Comment on above: Result Comment: This test is not yet approved or cleared by the [place] FDA. When there are no FDA-approved or cleared tests available, and other criteria are met, FDA can make tests available under an emergency access mechanism called an Emergency Use Authorization (EUA). The EUA for this test is supported by the Check Out Cashier of Health and Human Service's (HHS's) declaration that circumstances exist to justify the emergency use of in vitro diagnostics for the detection and/or diagnosis of the virus that causes COVID-19. This EUA will remain in effect (meaning this test can be used) for the duration of the COVID-19 declaration justifying emergency of IVDs, unless it is terminated or revoked by FDA (after which the test may no longer be used). When diagnostic testing is negative, the possibility of a false negative should be considered in the context of a patient's recent exposures and the presence of clinical signs and symptoms consistent with SARS-CoV-2. Performed By: #### B JOSE ALBERTO MOCTEZUMA, YVETTE, LIVER #### [facility] [address] [place], [place] [id number] Dr. Idania Roldan CBC AUTO DIFFon 08-21-2022 BASO # 0.0 103/ul Normal 0.0-0.1 [facility] Comment on above: Performed By: #### P T, PTT #### [facility] [address] [place] [address] Dr. Idania Roldan Basophils/100 WBC (Bld) 0.4 % Normal 0.2-2.0 [facility] Comment on above: Performed By: #### P T, PTT #### [facility] [address] [place] [address] Dr. Idania Roldan EO # 0.1 103/ul Normal 0.0-0.7 [facility] [facility] Comment on above: Performed By: #### P T, PTT #### [facility] [address] [place] [address] Dr. Idania Roldan Eosinophils/100 WBC (Bld) 1.3 % Normal 0.9-7.0 [facility] Comment on above: Performed By: #### P T, PTT #### [facility] [address] [place] [address] Dr. Idania Roldan Erythrocyte distribution wid th (RBC) [Ratio] 15.3 % Critically high 11.0-15.0 [facility] Comment on above: Performed By: #### P T, PTT #### [facility] [address] [place] [address] Dr. Idania Roldan Hematocrit (Bld) [Volume fraction] 32.1 % Critically low 36.0-48.0 [facility] Comment on above: Performed By: #### P T, PTT #### [facility] [address] [place] [address] Dr. Idania Roldan Hemoglobin (Bld) [Mass/Vol] 9.9 g/dL Critically low 12.0 -16.0 [facility] Comment on above: Performed By: #### P T, PTT #### [facility] [address] [place] [address] Dr. Idania Roldan IG # 0.01 10e3/ul Normal 0.00-0.03 [facility] Comment on above: Performed By: #### P T, PTT #### [facility] [address] [place] [address] Dr. Idania Roldan IG % 0.1 % Normal 0.0-0.5 [facility] Comment on above: Performed By: #### P T, PTT #### [facility] [address] [address] [address] Idania Roldan LYMPH # 2.7 103/ul Normal 1.2-3.8 [facility] Comment on above: Performed By: #### P T, PTT #### [facility] [address] [address] [address] Idania Roldan Lymphocytes/100 WBC (Bld) 35.7 % Normal 20.5-60.0 [facility] Comment on above: Performed By: #### P T, PTT #### [facility] [address] [place] [address] Dr. Idania Roldan MANUAL DIFF REQ NO Normal [facility] Comment on above: Performed By: #### P T, PTT #### [facility] [address] [place] [address] Dr. Idania Roldan MCH (RBC) [Entitic mass] 24.8 pg Critically low 26.7-34 .0 [facility] Comment on above: Performed By: #### P T, PTT #### [facility] [address] [place] [address] Dr. Idania Roldan MCHC (RBC) [Mass/Vol] 30.8 g/dL Normal 29.9-35.2 [facility] Comment on above: Performed By: #### P T, PTT #### [facility] [address] [place] [address] Dr. Idania Roldan MCV (RBC) [Entitic vol] 80.5 fL Critically low 81.0-99. 0 [facility] Comment on above: Performed By: #### P T, PTT #### [facility] [address] [place] [address] Dr. Idania Roldan MONO # 0.5 103/ul Normal 0.3-0.8 [facility] Comment on above: Performed By: #### P T, PTT #### [facility] [address] [place] [address] Dr. Idania Roldan Monocytes/100 WBC (Bld) 6.1 % Normal 1.7-12.0 [facility] Comment on above: Performed By: #### P T, PTT #### [facility] [address] [place] [address] Dr. Idania Roldan NEUT # 4.2 103/ul Normal 1.4-6.5 [facility] Comment on above: Performed By: #### P T, PTT #### [facility] [address] [place] [address] Dr. Idania Roldan Neutrophils/100 WBC (Bld) 56.4 % Normal 43.0-75.0 [facility] Comment on above: Performed By: #### P T, PTT #### [facility] [address] [place] [address] Dr. Idania Roldan Platelet mean volume (Bld) [Entitic vol] 9.4 fL Critically low 9.5-13.5 [facility] Comment on above: Performed By: #### P T, PTT #### [facility] [address] [place] [address] Dr. Idania Roldan PLT 296 103/ul Normal 150-450 [facility] Comment on above: Performed By: #### P T, PTT #### [facility] [address] [place] [address] Dr. Idania Roldan RBC 3.99 106/ul Critically low 4.20-5.40 [facility] Comment on above: Performed By: #### P T, PTT #### [facility] [address] [place] [address] Dr. Idania Roldan WBC 7.5 103/ul Normal 4.0-11.0 [facility] Comment on above: Performed By: #### P T, PTT #### [facility] [address] [place] [address] ABD/PELV W CONon 08-21-20 CT ABD/PELV W CON EXAMINATION: CT ABD/ PELV W CON HISTORY: GENERALIZED ABDOMINAL PAIN ; left flank pain and hematuria since placement 07/23/2022 COMPARISON: CT abdomen pelvis 01/04/2020 TECHNIQUE: Axial, Coronal, and Sagittal images were obtained without and/or with IV contrast as indicated by examination type. Dose reduction techniques were achieved by using automated exposure control and/or adjustment of mA and/or kV according to patient size and/or use of iterative reconstruction technique. FINDINGS: LUNG BASES: No visible pulmonary or pleural disease. LIVER: No enlargement, atrophy, suspicious density, or significant focal lesion. BILIARY: Cholecystectomy. PANCREAS: No lesion, fluid collection, or abnormal duct dilatation. SPLEEN: No enlargement or focal lesion. ADRENALS: No mass or enlargement. KIDNEYS: Left ureteral stents in good position. No mass, obstruction, or calcification bilaterally. BOWEL/MESENTERY: Prior gastric bypass surgery. No visible mass, obstruction, or bowel wall thickening. AORTA/VASCULAR: No aneurysm or dissection. RETROPERITONEUM: No mass or adenopathy. LYMPH NODES: No adenopathy. URINARY BLADDER: No visible focal wall thickening, lesion, or calculus. PELVIC ORGANS: Hysterectomy. ABDOMINAL WALL: No mass or hernia. BONES: No bony lesion or fracture. OTHER: Negative. IMPRESSION: 1. Left ureteral stent in good position. No acute or suspicious findings to account for patient's symptoms. Electronically authenticated by: RUSSELL DUFF Date: 2022-08-21 12:35 Normal [facility] URINE PROFILEon 2 Bilirubin Ql (U) Unable to perform te sting due to color interference. Abnormal NEGATIVE [facility] Comment on above: Performed By: #### B MP, LIPA, YVETTE, LIVER #### [facility] [address] [address] [address] Idania Roldan Clarity (U) TURBID Abnormal CLEAR [facility] Comment on above: Performed By: #### B MP, LIPA, YVETTE, LIVER #### [facility] [address] [address] [address] Idania Roldan Color (U) RED Abnormal YELLOW [facility] Comment on above: Performed By: #### B MP, LIPA, YVETTE, LIVER #### [facility] [address] [address] [address] Idania Roldan ERUAHD A micrscopic examina tion will be performed if indicated. Normal [facility] Comment on above: Performed By: #### B MP, LIPA, YVETTE, LIVER #### [facility] [address] [place] [address] Dr. Idania Roldan Glucose Ql (U) Unable to perform te sting due to color interference. Abnormal NEGATIVE [facility] Comment on above: Performed By: #### B MP, LIPA, YVETTE, LIVER #### [facility] [address] [place] [address] Dr. Idania Roldan Hemoglobin Ql (U) Unable to perform te sting due to color interference. Abnormal NEGATIVE [facility] Comment on above: Performed By: #### B MP, LIPA, YVETTE, LIVER #### [facility] [address] [place] [address] Dr. Idania Roldan Ketones Ql (U) Unable to perform te sting due to color interference. Abnormal NEGATIVE [facility] Comment on above: Performed By: #### B MP, LIPA, YVETTE, LIVER #### [facility] [address] [place] [address] Dr. Idania Roldan LEUKOCYTES Unable to perform te sting due to color interference. Abnormal NEGATIVE [facility] Comment on above: Performed By: #### B MP, LIPA, YVETTE, LIVER #### [facility] [address] [place] [address] Dr. Idania Roldan Nitrite Ql (U) Unable to perform te sting due to color interference. Abnormal NEGATIVE [facility] Comment on above: Performed By: #### B MP, LIPA, YVETTE, LIVER #### [facility] [address] [place] [address] Dr. Idania Roldan pH Unable to perform te sting due to color interference. Abnormal 5-9 [facility] Comment on above: Performed By: #### B MP, LIPA, YVETTE, LIVER #### [facility] [address] [place] [address] Dr. Idania Roldan SPEC GRAVITY 1.020 Normal 1.005-<=1.025 [facility] Comment on above: Performed By: #### B MP, LIPA, YVETTE, LIVER #### [facility] [address] [address] [address] Idania Roldan UA PROTEIN Unable to perform te sting due to color interference. Normal NEGATIVE/ TRACE [facility] Comment on above: Performed By: #### B MP, LIPA, YVETTE, LIVER #### [facility] [address] [place] [address] Dr. Idania Roldan UR MICRO IND INDICATED Normal [facility] Comment on above: Performed By: #### B MP, LIPA, YVETTE, LIVER #### [facility] [address] [place] [address] Dr. Idania Roldan UROBILINOGEN Unable to perform te sting due to color interference. Normal 0.2 - 1.0 [facility] Comment on above: Performed By: #### B MP, LIPA, YVETTE, LIVER #### [facility] [address] [place] [address] Dr. Idania Roldan PROF 14(COMP METB)on 022 Albumin [Mass/Vol] 4.2 g/dL Normal 3.4-5.0 [facility] Comment on above: Performed By: #### P T, PTT #### [facility] [address] [place] [address] Dr. Idania Roldan Albumin/Globulin [Mass ratio] 1.0 {ratio} Normal [facility] Comment on above: Performed By: #### P T, PTT #### [facility] [address] [place] [address] Dr. Idania Roldan ALP [Catalytic activity/Vol] 91 U/L Normal 46-116 [facility] Comment on above: Performed By: #### P T, PTT #### [facility] [address] [place] [address] Dr. Idania Roldan ALT [Catalytic activity/Vol] 15 U/L Normal 14-59 [facility] Comment on above: Performed By: #### P T, PTT #### [facility] [address] [place] [address] Dr. Idania Roldan Anion gap [Moles/Vol] 9.6 mmol/L Normal [facility] Comment on above: Performed By: #### P T, PTT #### [facility] [address] [address] [address] Idania Roldan AST [Catalytic activity/Vol] 14 U/L Critically low 15- 37 [facility] Comment on above: Performed By: #### P T, PTT #### [facility] [address] [address] [address] Idania Roldan Bilirubin [Mass/Vol] 0.2 mg/dL Normal 0.2-1.0 [facility] Comment on above: Performed By: #### P T, PTT #### [facility] [address] [address] [address] Idania Roldan Calcium [Mass/Vol] 9.2 mg/dL Normal 8.5-10.1 [facility] Comment on above: Performed By: #### P T, PTT #### [facility] [address] [place] [address] Dr. Idania Roldan Chloride [Moles/Vol] 103 mmol/L Normal 98-107 [facility] Comment on above: Performed By: #### P T, PTT #### [facility] [address] [address] [address] Idania Roldan CO2 [Moles/Vol] 31.2 mmol/L Normal 21.0-32.0 [facility] Comment on above: Performed By: #### P T, PTT #### [facility] [address] [place] [address] Dr. Idania Roldan Creatinine [Mass/Vol] 0.76 mg/dL Normal 0.55-1.02 [facility] Comment on above: Performed By: #### P T, PTT #### [facility] [address] [place] [address] Dr. Idania Roldan EGFR-AF CENTRAL AFRICAN >60 Normal >=60 [facility] Comment on above: Performed By: #### P T, PTT #### [facility] [address] [address] [address] Idania Roldan EGFR-NON AF CENTRAL AFRICAN >60 Normal >=60 [facility] Comment on above: Performed By: #### P T, PTT #### [facility] [address] [address] [address] Idania Roldan Globulin (S) [Mass/Vol] 4.2 g/dL Normal [facility] Comment on above: Performed By: #### P T, PTT #### [facility] [address] [place] [address] Dr. Idania Roldan Glucose [Mass/Vol] 107 mg/dL Critically high 74-106 [facility] Comment on above: Performed By: #### P T, PTT #### [facility] [address] [place] [address] Dr. Idania Roldan Potassium [Moles/Vol] 3.8 mmol/L Normal 3.5-5.1 [facility] Comment on above: Performed By: #### P T, PTT #### [facility] [address] [place] [address] Dr. Idania Roldan Protein [Mass/Vol] 8.4 g/dL Critically high 6.4-8.2 [facility] Comment on above: Performed By: #### P T, PTT #### [facility] [address] [place] [address] Dr. Idania Roldan Sodium [Moles/Vol] 140 mmol/L Normal 136-145 [facility] Comment on above: Performed By: #### P T, PTT #### [facility] [address] [place] [address] Dr. Idania Roldan Urea nitrogen [Mass/Vol] 12.0 mg/dL Normal 7.0-18.0 [facility] Comment on above: Performed By: #### P T, PTT #### [facility] [address] [place] [address] Dr. Idania Roldan Urea nitrogen/Creatinine [Mass ratio] 15.8 mg/mg Normal [facility] Comment on above: Performed By: #### P T, PTT #### [facility] [address] [place] [address] Dr. Idania Roldan URINE MICROSCOPIC ONLYon BACTERIA NONE SEEN Normal NONE SEEN [facility] Comment on above: Performed By: #### B MP, LIPA, YVETTE, LIVER #### [facility] [address] [place] [address] Dr. Idania Roldan Bacteria identified Cx Nom (U) NOT INDICATED Normal [facility] Comment on above: Performed By: #### B MP, LIPA, YVETTE, LIVER #### [facility] [address] [place] [address] Dr. Idania Roldan CAST NONE SEEN Normal NONE SEEN [facility] Comment on above: Performed By: #### B MP, LIPA, YVETTE, LIVER #### [facility] [address] [place] [address] Dr. Idania Roldan Crystals LM Nom (Urine sed) NONE SEEN Normal NONE SEE N [facility] Comment on above: Performed By: #### B MP, LIPA, YVETTE, LIVER #### [facility] [address] [place] [address] Dr. Idania Roldan Epithelial cells LM Ql (Urine sed) RARE Normal N ONE SEEN /RARE [facility] Comment on above: Performed By: #### B MP, LIPA, YVETTE, LIVER #### [facility] [address] [place] [address] Dr. Idania Rlodan MUCOUS NONE SEEN Normal NONE SEEN [facility] Comment on above: Performed By: #### B MP, LIPA, YVETTE, LIVER #### [facility] [address] [place] [address] Dr. Idania Roldan RBC (U) [#/Vol] /uL Abnormal 0-2 [facility] Comment on above: Performed By: #### B MP, LIPA, YVETTE, LIVER #### [facility] [address] [place] [address] Dr. Idania Roldan WBC 2-5 Abnormal NONE SEEN [facility] Comment on above: Performed By: #### B MP, LIPA, YVETTE, LIVER #### [facility] [address] [place] [address] Dr. Idania Roldan CBC AUTO DIFFon 08-19-2022 BASO # 0.0 103/ul Normal 0.0-0.1 [facility] Comment on above: Performed By: #### P T, PTT #### [facility] [address] [place] [address] Dr. Idania Roldan Basophils/100 WBC (Bld) 0.4 % Normal 0.2-2.0 [facility] Comment on above: Performed By: #### P T, PTT #### [facility] [address] [place] [address] Dr. Idania Roldan EO # 0.1 103/ul Normal 0.0-0.7 [facility] Comment on above: Performed By: #### P T, PTT #### [facility] [address] [place] [address] Dr. Idania Roldan Eosinophils/100 WBC (Bld) 2.0 % Normal 0.9-7.0 [facility] Comment on above: Performed By: #### P T, PTT #### [facility] [address] [place] [address] Dr. Idania Roldan Erythrocyte distribution wid th (RBC) [Ratio] 14.8 % Normal 11.0-15.0 [facility] Comment on above: Performed By: #### P T, PTT #### [facility] [address] [place] [address] Dr. Idania Roldan Hematocrit (Bld) [Volume fraction] 31.5 % Critically low 36.0-48.0 [facility] Comment on above: Performed By: #### P T, PTT #### [facility] [address] [place] [address] Dr. Idania Roldan Hemoglobin (Bld) [Mass/Vol] 9.5 g/dL Critically low 12.0 -16.0 [facility] Comment on above: Performed By: #### P T, PTT #### [facility] [address] [place] [address] Dr. Idania Roldan IG # 0.01 10e3/ul Normal 0.00-0.03 [facility] Comment on above: Performed By: #### P T, PTT #### [facility] [address] [place] [address] Dr. Idania Roldan IG % 0.2 % Normal 0.0-0.5 [facility] Comment on above: Performed By: #### P T, PTT #### [facility] [address] [place] [address] Dr. Idania Roldan LYMPH # 1.4 103/ul Normal 1.2-3.8 [facility] Comment on above: Performed By: #### P T, PTT #### [facility] [address] [place] [address] Dr. Idania Roldan Lymphocytes/100 WBC (Bld) 29.9 % Normal 20.5-60.0 [facility] Comment on above: Performed By: #### P T, PTT #### [facility] [address] [place] [address] Dr. Idania Roldan MANUAL DIFF REQ NO Normal [facility] Comment on above: Performed By: #### P T, PTT #### [facility] [address] [place] [address] Dr. Idania Roldan MCH (RBC) [Entitic mass] 24.4 pg Critically low 26.7-34 .0 [facility] Comment on above: Performed By: #### P T, PTT #### [facility] [address] [place] [address] Dr. Idania Roldan MCHC (RBC) [Mass/Vol] 30.2 g/dL Normal 29.9-35.2 [facility] Comment on above: Performed By: #### P T, PTT #### [facility] [address] [place] [address] Dr. Idania Roldan MCV (RBC) [Entitic vol] 80.8 fL Critically low 81.0-99. 0 [facility] Comment on above: Performed By: #### P T, PTT #### [facility] [address] [place] [address] Dr. Idania Roldan MONO # 0.2 103/ul Critically low 0.3-0.8 [facility] Comment on above: Performed By: #### P T, PTT #### [facility] [address] [place] [address] Dr. Idania Roldan Monocytes/100 WBC (Bld) 5.2 % Normal 1.7-12.0 [facility] Comment on above: Performed By: #### P T, PTT #### [facility] [address] [place] [address] Dr. Idania Roldan NEUT # 2.9 103/ul Normal 1.4-6.5 [facility] Comment on above: Performed By: #### P T, PTT #### [facility] [address] [place] [address] Dr. Idania Roldan Neutrophils/100 WBC (Bld) 62.3 % Normal 43.0-75.0 [facility] Comment on above: Performed By: #### P T, PTT #### [facility] [address] [place] [address] Dr. Idania Roldan Platelet mean volume (Bld) [Entitic vol] 8.6 fL Critically low 9.5-13.5 [facility] Comment on above: Performed By: #### P T, PTT #### [facility] [address] [place] [address] Dr. Idania Roldan PLT 269 103/ul Normal 150-450 [facility] Comment on above: Performed By: #### P T, PTT #### [facility] [address] [place] [address] Dr. Idania Roldan RBC 3.90 106/ul Critically low 4.20-5.40 [facility] Comment on above: Performed By: #### P T, PTT #### [facility] [address] [place] [address] Dr. Idania Roldan WBC 4.6 103/ul Normal 4.0-11.0 [facility] Comment on above: Performed By: #### P T, PTT #### [facility] [address] [place] [address] Dr. Idania Roldan PROF CHEM 8 (BAS METB)on Anion gap [Moles/Vol] 9.0 mmol/L Normal [facility] Comment on above: Performed By: #### B MP, LIPA, YVETTE, LIVER #### [facility] [address] [address] [address] Idania Roldan Calcium [Mass/Vol] 9.1 mg/dL Normal 8.5-10.1 [facility] Comment on above: Performed By: #### B MP, LIPA, YVETTE, LIVER #### [facility] [address] [place] [address] Dr. Idania Roldan Chloride [Moles/Vol] 104 mmol/L Normal 98-107 [facility] Comment on above: Performed By: #### B MP, LIPA, YVETTE, LIVER #### [facility] [address] [place] [address] Dr. Idania Roldan CO2 [Moles/Vol] 31.5 mmol/L Normal 21.0-32.0 [facility] Comment on above: Performed By: #### B MP, LIPA, YVETTE, LIVER #### [facility] [address] [place] [address] Dr. Idania Roldan Creatinine [Mass/Vol] 0.59 mg/dL Normal 0.55-1.02 [facility] Comment on above: Performed By: #### B MP, LIPA, YVETTE, LIVER #### [facility] [address] [place] [address] Dr. Idania Roldan EGFR-AF CENTRAL AFRICAN >60 Normal >=60 [facility] Comment on above: Performed By: #### B MP, LIPA, YVETTE, LIVER #### [facility] [address] [place] [address] Dr. Idania Roldan EGFR-NON AF CENTRAL AFRICAN >60 Normal >=60 [facility] Comment on above: Performed By: #### B MP, LIPA, YVETTE, LIVER #### [facility] [address] [place] [address] Dr. Idania Roldan Glucose [Mass/Vol] 90 mg/dL Normal 74-106 [facility] Comment on above: Performed By: #### B MP, LIPA, YVETTE, LIVER #### [facility] [address] [place] [address] Dr. Idania Roldan Potassium [Moles/Vol] 4.5 mmol/L Normal 3.5-5.1 [facility] Comment on above: Performed By: #### B MP, LIPA, YVETTE, LIVER #### [facility] [address] [place] [address] Dr. Idania Roldan Sodium [Moles/Vol] 140 mmol/L Normal 136-145 [facility] Comment on above: Performed By: #### B MP, LIPA, YVETTE, LIVER #### [facility] [address] [place] [address] Dr. Idania Roldan Urea nitrogen [Mass/Vol] 8.0 mg/dL Normal 7.0-18.0 [facility] Comment on above: Performed By: #### B MP, LIPA, YVETTE, LIVER #### [facility] [address] [place] [address] Dr. Idania Roldan Urea nitrogen/Creatinine [Mass ratio] 13.6 mg/mg Normal [facility] Comment on above: Performed By: #### B MP, LIPA, YVETTE, LIVER #### [facility] [address] [place] [address] Dr. Idania Roldan PROTIMEon 08-19-2022 INR Coag (PPP) [Relative time] 0.93 {INR} Normal [facility] Comment on above: Performed By: #### B MP, LIPA, YVETTE, LIVER #### [facility] [address] [place] [address] Dr. Idania Roldan INR GUIDELINES SEE BELOW Normal [facility] Comment on above: Result Comment: TARUN RED INR: 2.0 - 3.0 CONDITIONS NOT LISTED BELOW 2.5 - 3.5 FOR PROSTHETIC HEART VALVE REPLACEMENT 2.5 - 3.5 RECURRENT THROMBOSIS Performed By: #### B MP, LIPA, YVETTE, LIVER #### [facility] [address] [place] [address] Dr. Idania Roldan PT Coag (PPP) [Time] 10.1 s Normal 9.0-11.6 [facility] [place] Comment on above: Performed By: #### B MP, LIPA, YVETTE, LIVER #### [facility] [address] [place] [address] Idania Roldan PTTon 08-19-2022 aPTT Coag (Bld) [Time] 28.1 s Normal 22.3-36.2 Th [facility] Comment on above: Performed By: #### B MP, LIPA, YVETTE, LIVER #### [facility] [address] [place], [place] [address] Dr. Idania Roldan Covid-19 PCR ([facility])on 07-11 SARS-CoV-2 (COVID-19) RNA MAMIE+probe Ql (Unsp spec) Not detected Normal NOT DETECTED [facility] Comment on above: Result Comment: This test is not yet approved or cleared by the [place] FDA. When there are no FDA-approved or cleared tests available, and other criteria are met, FDA can make tests available under an emergency access mechanism called an Emergency Use Authorization (EUA). The EUA for this test is supported by the Check Out Cashier of Health and Human Service's (HHS's) declaration that circumstances exist to justify the emergency use of in vitro diagnostics for the detection and/or diagnosis of the virus that causes COVID-19. This EUA will remain in effect (meaning this test can be used) for the duration of the COVID-19 declaration justifying emergency of IVDs, unless it is terminated or revoked by FDA (after which the test may no longer be used). When diagnostic testing is negative, the possibility of a false negative should be considered in the context of a patient's recent exposures and the presence of clinical signs and symptoms consistent with SARS-CoV-2. Performed By: #### P T, PTT #### [facility] [address] [place] [address] Dr. Idania Roldan CBC AUTO DIFFon 07-10-2022 BASO # 0.0 103/ul Normal 0.0-0.1 [facility] Comment on above: Performed By: #### P T, PTT #### [facility] [address] [place] [address] Dr. Idania Roldan Basophils/100 WBC (Bld) 0.2 % Normal 0.2-2.0 [facility] Comment on above: Performed By: #### P T, PTT #### [facility] [address] [place] [address] Dr. Idania Roldan EO # 0.1 103/ul Normal 0.0-0.7 [facility] Comment on above: Performed By: #### P T, PTT #### [facility] [address] [place] [address] Dr. Idania Roldan Eosinophils/100 WBC (Bld) 1.3 % Normal 0.9-7.0 [facility] Comment on above: Performed By: #### P T, PTT #### [facility] [address] [place] [address] Dr. Idania Roldan Erythrocyte distribution wid th (RBC) [Ratio] 16.4 % Critically high 11.0-15.0 [facility] Comment on above: Performed By: #### P T, PTT #### [facility] [address] [place] [address] Dr. Idania Roldan Hematocrit (Bld) [Volume fraction] 33.2 % Critically low 36.0-48.0 [facility] Comment on above: Performed By: #### P T, PTT #### [facility] [address] [place] [address] Dr. Idania Roldan Hemoglobin (Bld) [Mass/Vol] 10.3 g/dL Critically low 12.0 -16.0 [facility] Comment on above: Performed By: #### P T, PTT #### [facility] [address] [place] [address] Dr. Idania Roldan IG # 0.01 10e3/ul Normal 0.00-0.03 [facility] Comment on above: Performed By: #### P T, PTT #### [facility] [address] [place] [address] Dr. Idania Roldan IG % 0.2 % Normal 0.0-0.5 [facility] Comment on above: Performed By: #### P T, PTT #### [facility] [address] [place] [address] Dr. Idania Roldan LYMPH # 1.8 103/ul Normal 1.2-3.8 [facility] Comment on above: Performed By: #### P T, PTT #### [facility] [address] [place] [address] Dr. Idania Roldan Lymphocytes/100 WBC (Bld) 38.8 % Normal 20.5-60.0 [facility] [place] Comment on above: Performed By: #### P T, PTT #### [facility] [address] [place] [address] Dr. Idania Roldan MANUAL DIFF REQ NO Normal [facility] Comment on above: Performed By: #### P T, PTT #### [facility] [address] [place] [address] Dr. Idania Roldan MCH (RBC) [Entitic mass] 25.9 pg Critically low 26.7-34 .0 [facility] [place] Comment on above: Performed By: #### P T, PTT #### [facility] [address] [place] [address] Dr. Idania Roldan MCHC (RBC) [Mass/Vol] 31.0 g/dL Normal 29.9-35.2 [facility] [place] Comment on above: Performed By: #### P T, PTT #### [facility] [address] [place] [address] Dr. Idania Roldan MCV (RBC) [Entitic vol] 83.4 fL Normal 81.0-99.0 [facility] Comment on above: Performed By: #### P T, PTT #### [facility] [address] [place] [address] Dr. Idania Roldan MONO # 0.3 103/ul Normal 0.3-0.8 [facility] Comment on above: Performed By: #### P T, PTT #### [facility] [address] [place] [address] Dr. Idania Roldan Monocytes/100 WBC (Bld) 6.1 % Normal 1.7-12.0 [facility] Comment on above: Performed By: #### P T, PTT #### [facility] [address] [place] [address] Dr. Idania Roldan NEUT # 2.5 103/ul Normal 1.4-6.5 [facility] Comment on above: Performed By: #### P T, PTT #### [facility] [address] [place] [address] Dr. Idania Roldan Neutrophils/100 WBC (Bld) 53.4 % Normal 43.0-75.0 [facility] Comment on above: Performed By: #### P T, PTT #### [facility] [address] [place] [address] Dr. Idania Roldan Platelet mean volume (Bld) [ Entitic vol] 10.1 fL Normal 9.5-13.5 [facility] Comment on above: Performed By: #### P T, PTT #### [facility] [address] [place] [address] Dr. Idania Roldan PLT 239 103/ul Normal 150-450 [facility] Comment on above: Performed By: #### P T, PTT #### [facility] [address] [place] [address] Dr. Idania Roldan RBC 3.98 106/ul Critically low 4.20-5.40 [facility] Comment on above: Performed By: #### P T, PTT #### [facility] [address] [place] [address] Dr. Idania Roldan WBC 4.6 103/ul Normal 4.0-11.0 [facility] Comment on above: Performed By: #### P T, PTT #### [facility] [address] [place] [address] Dr. Idania Roldan PROF CHEM 8 (BAS METB)on Anion gap [Moles/Vol] 8.4 mmol/L Normal [facility] [place] Comment on above: Performed By: #### B MP #### [facility] [address] [place] [address] Dr. Idania Roldan Calcium [Mass/Vol] 9.3 mg/dL Normal 8.5-10.1 [facility] Comment on above: Performed By: #### B MP #### [facility] [address] [place] [address] [address] Idania Roldan Chloride [Moles/Vol] 103 mmol/L Normal 98-107 [facility] [place] Comment on above: Performed By: #### B MP #### [facility] [address] [place] [address] [address] Idania Roldan CO2 [Moles/Vol] 32.9 mmol/L Critically high 21.0-32.0 [facility] [place] Comment on above: Performed By: #### B MP #### [facility] [address] [place] [address] [address] Idania Roldan Creatinine [Mass/Vol] 0.70 mg/dL Normal 0.55-1.02 [facility] [place] Comment on above: Performed By: #### B MP #### [facility] [address] [place] [address] Dr. Idania Roldan EGFR-AF CENTRAL AFRICAN >60 Normal >=60 [facility] Comment on above: Performed By: #### B MP #### [facility] [address] [place] [address] [address] Idania Roldan EGFR-NON AF CENTRAL AFRICAN >60 Normal >=60 [facility] [place] Comment on above: Performed By: #### B MP #### [facility] [address] [place] [address] [address] Idania Roldan Glucose [Mass/Vol] 73 mg/dL Critically low 74-106 Th [facility] Comment on above: Performed By: #### B MP #### [facility] [address] [place] [address] Dr. Idania Roldan Potassium [Moles/Vol] 4.3 mmol/L Normal 3.5-5.1 [facility] [place] Comment on above: Performed By: #### B MP #### [facility] [address] [place] [address] [address] Idania Roldan Sodium [Moles/Vol] 140 mmol/L Normal 136-145 [facility] Comment on above: Performed By: #### B MP #### [facility] [address] [place] [address] [address] Idania Roldan Urea nitrogen [Mass/Vol] 16.0 mg/dL Normal 7.0-18.0 [facility] [place] Comment on above: Performed By: #### B MP #### [facility] [address] [place] [address] Dr. Idania Roldan Urea nitrogen/Creatinine [Mass ratio] 22.9 mg/mg Normal [facility] [place] Comment on above: Performed By: #### B MP #### [facility] [address] [place] [address] Dr. Idania Roldan PROTIMEon 07-10-2022 INR Coag (PPP) [Relative time] 1.00 {INR} Normal [facility] [place] Comment on above: Performed By: #### P T, PTT #### [facility] [address] [place] [address] Dr. Idania Roldan INR GUIDELINES SEE BELOW Normal [facility] Comment on above: Result Comment: TARUN RED INR: 2.0 - 3.0 CONDITIONS NOT LISTED BELOW 2.5 - 3.5 FOR PROSTHETIC HEART VALVE REPLACEMENT 2.5 - 3.5 RECURRENT THROMBOSIS Performed By: #### P T, PTT #### [facility] [address] [place] [address] Dr. Idania Roldan PT Coag (PPP) [Time] 10.8 s Normal 9.0-11.6 [facility] [place] Comment on above: Performed By: #### P T, PTT #### [facility] [address] [place] [address] Dr. Idania Roldan PTTon 07-10-2022 aPTT Coag (Bld) [Time] 29.3 s Normal 22.3-36.2 Th [facility] Comment on above: Performed By: #### P T, PTT #### [facility] [address] [place] [address] Dr. Idania Roldan Operative Reporton Operative Report MR#: [id number] I [facility] Pt. Name: Elvi Moore Room #: [id number] Discharge 06/01/2022 Date: Birthdate: 1980 OPERATIVE REPORT DATE OF SURGERY: 06/01/2022 SURGEON: Kevin Lane M.D. ASSESSOR: Duy Cavazos ANESTHESIA: General anesthesia. ESTIMATED BLOOD LOSS: Per Anesthesia note. COMPLICATIONS: None. SPECIMENS: Left knee routine culture sensitivity x3. PREOPERATIVE DIAGNOSIS: Left total knee arthroplasty pain associated prosthesis. POSTOPERATIVE DIAGNOSIS: Left total knee arthroplasty pain associated prosthesis. PROCEDURE: Left total knee arthroplasty revision. COMPONENTS: 1. Biomet Vanguard 360, size 60 femoral component. 2. 15 x 120 femoral stem. 3. 67 tibial tray. 4. 17 x 120 femoral stem. 5. 12 PS polyethylene insert. INDICATION FOR PROCEDURE: This is a 41-year-old female who had a previous cement with left total knee arthroplasty. She was having pain and stiffness in the knee. She has tried physical therapy extensively, and she has difficulty with work. It has been long enough, and she has not gotten significant relief of her symptoms. I discussed with her my recommendation for revision. OPERATIVE COURSE: The patient was brought to the operating room and placed supine on the operating table. General anesthesia was obtained. Left lower extremity had a nonsterile tourniquet placed, and prepped and draped sterilely. A time out was completed. Preoperative antibiotics were confirmed and given. The leg was gravity exsanguinated. Tourniquet was inflated. I then utilized a previous incision on the left knee and dissected down the overlying retinaculum. A full-thickness medial and lateral flap was raised. Medial parapatellar arthrotomy made. Fluid was sent for routine culture sensitivity, but appeared to be normal. Soft tissue dissected away from the anteromedial aspect of the tibia. The knee was taken through range of motion, and we did not see any significant malrotation of the components nor of the patellar tracking. I then removed the polyethylene, and noted that if I did not have a polyethylene that the range of motion is reasonable. Therefore, then proceeded forward with removal. I went around the femoral component with a reciprocating saw and osteotome and mallet. I removed it. I then subluxed the tibia anteriorly and went around it as well. I was able to remove it with a little bit of bone loss or at the PEG holes, but not terrible. Once I removed this, I then subluxed the tibia to be exposed. I then drilled the tibia and reamed it. I then set the SSK jig in position and did a cleanup cut on the tibial side. Once I did that, I then checked with the drop salome and then set rotation based on the tibial tubercle and then pinned the jig in position. I drilled and punch for the keel. I placed the trial in position. I then drilled the femoral side and reamed it as well. I then did a cleanup cut medially and laterally on the femur. I then set the rotation based on the epicondylar axis and recut anteriorly and posteriorly. The trial was then placed on the femoral side. The knee was taken through range of motion was acceptable and a lot more loose. I then pinned the jig in position on the femoral side and cut for the box and drilled for the boss. The bony surfaces irrigated and dried. The tibia and femur cemented in position. Excess bone cement was removed. Polyethylene insert trials applied. I had noted that the 14 and 12 was acceptable. Given her acceptance with a 12, which was acceptable as well. I placed the real polyethylene in position and locked with locking bar. The arthrotomy was closed with soft #2 interrupted [id number] suture. The remainder of the incision closed in layered fashion. Sterile dressing applied. At the conclusion of the case, all sponge and needle counts correct. I was present for the critical portions of this case. Electronically Signed by: Kevin Lane M.D. 06/09/2022 07:[address] M.D. Date Dict: 06/03/2022/07:15 A/Kevin Lane M.D. Date Trans: 06/03/2022 08:09 Christine/taylor [id number] cc: Arleth Acharya M.D. [address], [facility] [address] [place] [facility] *ANAEROBIC CULTUREon 022 *ANAEROBIC CULTURE Clinical Report: (D) Specimen/Source: FLUID/INTRAOP SPEC Collected: 06/01/2022 14:08 Status: Final Last Updated: 06/06/2022 06:35 (1) 1. LEFT KNEE JOINT FLUID CULT RES (Final) No Anaerobes Isolated 5 Days Normal [facility] Comment on above: Order Comment: 1. LE FT KNEE JOINT FLUID Performed By: #### 3 0312 ####[facility] *ANAEROBIC CULTURE Clinical Report: (D) Specimen/Source: TISSUE/INTRAOP SPEC Collected: 06/01/2022 14:08 Status: Final Last Updated: 06/06/2022 06:35 (1) 2. LEFT KNEE MEDIAL SYNOVIUM CULT RES (Final) No Anaerobes Isolated 5 Days Normal [facility] Comment on above: Order Comment: 2. LE FT KNEE MEDIAL SYNOVIUM Performed By: #### 6 1405 #### [facility] [address] *ANAEROBIC CULTURE Clinical Report: (D) Specimen/Source: TISSUE/INTRAOP SPEC Collected: 06/01/2022 14:08 Status: Final Last Updated: 06/06/2022 06:35 (1) 3. LEFT KNEE LATERAL SYNOVIUM CULT RES (Final) No Anaerobes Isolated 5 Days Normal The [facility] Comment on above: Order Comment: 3. LE FT KNEE LATERAL SYNOVIUM Performed By: #### 6 1405 #### [facility] [address] *BODY FLUID CULTUREon 2021 *BODY FLUID CULTURE Clinical Report: (D) Specimen/Source: FLUID/INTRAOP SPEC Collected: 06/01/2022 14:08 Status: Final Last Updated: 06/06/2022 06:39 (1) 1. LEFT KNEE JOINT FLUID GRAM (Final) Quantity Not Sufficient CULT RES (Final) No Growth Day 5 Normal The [facility] Comment on above: Order Comment: 1. LE FT KNEE JOINT FLUID Performed By: #### 3 0318 ####[facility] *TISSUE CULTUREon 06-01-2022 *TISSUE CULTURE Clinical Report: (D) Specimen/Source: TISSUE/INTRAOP SPEC Collected: 06/01/2022 14:08 Status: Final Last Updated: 06/06/2022 06:40 (1) 2. LEFT KNEE MEDIAL SYNOVIUM GRAM (Final) Many Polys No Bacteria Seen CULT RES (Final) No Growth Day 5 Normal The [facility] Comment on above: Order Comment: 2. LE FT KNEE MEDIAL SYNOVIUM Performed By: #### 3 0338 ####[facility] *TISSUE CULTURE Clinical Report: (D) Specimen/Source: TISSUE/INTRAOP SPEC Collected: 06/01/2022 14:08 Status: Final Last Updated: 06/06/2022 06:39 (1) 3. LEFT KNEE LATERAL SYNOVIUM GRAM (Final) Many Polys No Bacteria Seen CULT RES (Final) No Growth Day 5 Normal The [facility] Comment on above: Order Comment: 3. LE FT KNEE LATERAL SYNOVIUM Performed By: #### 3 0338 ####[facility] [address] POC GLUCOSE LABon 06-01-2022 Glucose [Mass/Vol] 86 mg/dL Normal 70-100 The [facility] Comment on above: Performed By: #### 8 5499 #### [facility] [address] [place], [place] [id number] [place] [address] PORTABLE KNEE LEFT 2 VWSon 0 06-01-2022 PORTABLE KNEE LEFT 2 VWS [facility] Department of Radiology [address] [place] [address] Patient Name: ELVI MOORE : 1980 Sex: F Age: Race: White Pt. Location: OUTP Patient Status: D Ordered Date: 06/01/2022 3:05:00 PM Completed Date: 06/01/2022 04:06 PM Requesting Provider: ALVIN CAVAZOS Attending Provider: KEVIN LANE Report Copy To: Signs & Symptoms: Post OP History: Comments: Hardware Evaluation, in PACU Exam: PORTABLE KNEE LEFT 2 VWS PORTABLE KNEE LEFT 2 VWS 06/01/2022 4:06 PM CLINICAL INDICATIONS: Pain. Knee revision Post OP TECHNOLOGIST COMMENTS: Hardware Evaluation, post op QUESTION FOR THE RADIOLOGIST: Hardware Evaluation, in PACU PROTOCOL: AP(PA) and Lateral views were obtained. COMPARISON: 02/12/2022 IMPRESSION: Interval knee revision. Long stem total knee arthroplasty is appreciated. Hardware appears well-positioned and without periprosthetic fracture. Air in the joint space and soft tissues is noted as expected. No immediate complication. Follow-up is planned Electronically signed: Yvette Andrade. Transcribed by: [email or web address], User Resident: Electronically Signed by: YVETTE ANDRADE @ 06/02/2022 08:53 AM Normal [facility] Comment on above: Order Comment: Hardw are Evaluation, in PACU *MRSA/MSSA DNA NASALon 05-26 *MRSA/MSSA DNA NASAL Clinical Report: (D ) Specimen: NASAL SWAB Collected: 05/26/2022 15:23 Status: Final Last Updated: 05/27/2022 13:43 MSSA DNA (Final) Negative MRSA DNA (Final) Negative Normal The [facility] Comment on above: Performed By: #### 3 1595 #### [address] [place] [address], [facility] C REACTIVE PROTEINon 022 CRP [Mass/Vol] 1.3 mg/L Normal 0.0-7.0 The [facility] Comment on above: Performed By: #### 6 1405 #### [facility] [address] [place] [address], [facility] CBC W/DIFFon 05-26-2022 ABS IMM GRANS 0.0 10*3/uL Normal 0.0-0.2 The [facility] Comment on above: Performed By: #### 6 1405 #### [facility] [address] [place] [address], [facility] ABS NEUTROPHILS 2.5 10*3/uL Normal 1.6-7.6 The [facility] Comment on above: Performed By: #### 6 1405 #### [facility] [address] [place] [address], [facility] Basophils (Bld) [#/Vol] 0.0 10*3/uL Normal 0.0-0.2 [facility] Comment on above: Performed By: #### 6 1405 #### [facility] [address] [place] [address], [facility] Basophils/100 WBC (Bld) 0.3 % Normal 0.0-1.0 T ramiro [facility] Comment on above: Performed By: #### 6 1405 #### [facility] [address] [facility] [address], [facility] Eosinophils (Bld) [#/Vol] 0.1 10*3/uL Normal 0.0-0.5 [facility] Comment on above: Performed By: #### 6 1405 #### [facility] [address] [place] [address], [facility] Eosinophils/100 WBC (Bld) 1.5 % Normal 0.0-6.0 [facility] Comment on above: Performed By: #### 6 1405 #### [facility] [address] [place] [address], [facility] Erythrocyte distribution wid th (RBC) [Ratio] 15.9 % High 11.5-15.0 The [facility] Comment on above: Performed By: #### 6 1405 #### [facility] [address] [facility] [place] [address], [facility] Hematocrit (Bld) [Volume fraction] 35.0 % Low 36.0-45.0 The [facility] Comment on above: Performed By: #### 6 1405 #### [facility] [address] [facility] [place] [address], [facility] Hemoglobin (Bld) [Mass/Vol] 10.6 g/dL Low 12.0-15. 0 The [facility] Comment on above: Performed By: #### 6 1405 #### [facility] [address] [facility] [place] [address], [facility] IMMATURE GRANS 0.2 % Normal 0.0-1.0 The [facility] Comment on above: Performed By: #### 6 1405 #### [facility] [address] [facility] [place] [address], [facility] Lymphocytes (Bld) [#/Vol] 2.8 10*3/uL Normal 1.2-4.0 The [facility] Comment on above: Performed By: #### 6 1405 #### [facility] [address] [facility] [place] [address], [facility] Lymphocytes/100 WBC (Bld) 48.0 % High 20.0-45.0 The [facility] Comment on above: Performed By: #### 6 1405 #### [facility] [address] [facility] [place] [address], [facility] MCH (RBC) [Entitic mass] 24.5 pg Low 27.0-33.0 The [facility] Comment on above: Performed By: #### 6 1405 #### [facility] [address] [facility] [place] [address], [facility] MCHC (RBC) [Mass/Vol] 30.3 g/dL Low 32.0-35.0 The [facility] Comment on above: Performed By: #### 6 1405 #### [facility] [address] [facility] [place] [address], [facility] MCV (RBC) [Entitic vol] 81.0 fL Low 82.0-98.0 T he [facility] Comment on above: Performed By: #### 6 1405 #### [facility] [address] [facility] [place] [address], [facility] Monocytes (Bld) [#/Vol] 0.4 10*3/uL Normal 0.1-1.0 The [facility] Comment on above: Performed By: #### 6 1405 #### [facility] [address] [facility] [place] [address], [facility] MONOS 6.8 % Normal 5.0-12.0 The [facility] Comment on above: Performed By: #### 6 1405 #### [facility] [address] [facility] [place] [address], [facility] Neutrophils/100 WBC (Bld) 43.2 % Normal 40.0-72.0 The [facility] Comment on above: Performed By: #### 6 1405 #### [facility] [address] [facility] [place] [address], [facility] Nucleated RBC/100 WBC (Bld) [Ratio] 0 % Normal 0-0 The [facility] Comment on above: Performed By: #### 6 1405 #### [facility] [address] [place] [address], [facility] PLAT CNT 246 10*3/uL Normal 150-400 The [facility] Comment on above: Performed By: #### 6 1405 #### [facility] [address] [place] [id number], [facility] RBC (Bld) [#/Vol] 4.32 10*6/uL Normal 3.80-5.00 The [facility] Comment on above: Performed By: #### 6 1405 #### [facility] [address] WBC (Bld) [#/Vol] 5.87 10*3/uL Normal 4.00-10.60 [facility] Comment on above: Performed By: #### 6 1405 #### [facility] [address] HEMOGLOBIN A1Con 05-26-2022 Glucose [Moles/Vol] 100 mmol/L Normal [facility] Comment on above: Performed By: #### 3 1791 #### [facility] [address] HbA1c (Bld) [Mass fraction] 5.1 % Normal 4.0-6.0 The [facility] Comment on above: Performed By: #### 3 1791 #### [facility] [address] SEDIMENTATION RATEon 022 SED RATE 17 mm/hr Normal 0-20 [facility] Comment on above: Performed By: #### 6 1405 #### [facility] [address] US KIDNEYS BLADDERon 022 US KIDNEYS BLADDER EXAMINATION: US KIDN EYS BLADDER HISTORY: Kidney stone ; left flank pain for 6 weeks COMPARISON: Ultrasound kidneys 04/16/2022 TECHNIQUE: Ultrasound examination was performed of the kidneys and urinary bladder. FINDINGS: RIGHT KIDNEY: No evidence of pelvocaliectasis, mass, or calculi. Normal renal cortical parenchymal echogenicity. Color Doppler demonstrates blood flow within the kidney. Kidney: 9.3 x 4.1 x 4.2 cm LEFT KIDNEY: 7 x 5 x 5 mm echogenic structure within inferior pole favoring a stone. No evidence of pelvocaliectasis or mass. Normal renal cortical parenchymal echogenicity. Color Doppler demonstrates blood flow within the kidney. Kidney: 9.9 x 4.8 x 4.4 cm BLADDER: No visible wall thickening, mass, or calculi. Post void residual: 5 mL URETERAL JETS: Visualized bilaterally. IMPRESSION: 1. Persistent nonobstructing stone within left kidney. 2. Otherwise no suspicious findings to account for patient's symptoms. Electronically authenticated by: RUSSELL DUFF Date: 2022-05-02 16:18 Normal The [facility] CBC AUTO DIFFon 04-29-2022 BASO # 0.0 103/ul Normal 0.0-0.1 [facility] Comment on above: Performed By: #### B MP, LIPA, YVETTE, LIVER #### [facility] [address] [place] [address] Dr. Idania Roldan Basophils/100 WBC (Bld) 0.3 % Normal 0.2-2.0 [facility] Comment on above: Performed By: #### B MP, LIPA, YVETTE, LIVER #### [facility] [address] [place] [address] Dr. Idania Roldan EO # 0.1 103/ul Normal 0.0-0.7 [facility] Comment on above: Performed By: #### B MP, LIPA, YVETTE, LIVER #### [facility] [address] [place] [address] Dr. Idania Roldan Eosinophils/100 WBC (Bld) 0.9 % Normal 0.9-7.0 [facility] Comment on above: Performed By: #### B MP, LIPA, YVETTE, LIVER #### [facility] [address] [place] [address] Dr. Idania Roldan Erythrocyte distribution wid th (RBC) [Ratio] 15.4 % Critically high 11.0-15.0 The [facility] Comment on above: Performed By: #### B MP, LIPA, YVETTE, LIVER #### [facility] [address] [place] [address] Dr. Idania Roldan Hematocrit (Bld) [Volume fraction] 36.0 % Normal 3 6.0-48.0 [facility] Comment on above: Performed By: #### B MP, LIPA, YVETTE, LIVER #### [facility] [address] [place] [address] Dr. Idania Roldan Hemoglobin (Bld) [Mass/Vol] 11.2 g/dL Critically low 12.0 -16.0 [facility] Comment on above: Performed By: #### B MP, LIPA, YVETTE, LIVER #### [facility] [address] [place] [address] Dr. Idania Roldan IG # 0.02 10e3/ul Normal 0.00-0.03 [facility] Comment on above: Performed By: #### B MP, LIPA, YVETTE, LIVER #### [facility] [address] [place] [address] Dr. Idania Roldan IG % 0.3 % Normal 0.0-0.5 The [facility] Comment on above: Performed By: #### B MP, LIPA, YVETTE, LIVER #### [facility] [address] [place] [address] Dr. Idania Roldan LYMPH # 2.5 103/ul Normal 1.2-3.8 [facility] Comment on above: Performed By: #### B MP, LIPA, YVETTE, LIVER #### [facility] [address] [place] [address] Dr. Idania Roldan Lymphocytes/100 WBC (Bld) 36.2 % Normal 20.5-60.0 [facility] Comment on above: Performed By: #### B MP, LIPA, YVETTE, LIVER #### [facility] [address] [place] [address] Dr. Idania Roldan MANUAL DIFF REQ NO Normal The [facility] Comment on above: Performed By: #### B MP, LIPA, YVETTE, LIVER #### [facility] [address] [place] [address] Dr. Idania Roldan MCH (RBC) [Entitic mass] 24.9 pg Critically low 26.7-34 .0 [facility] Comment on above: Performed By: #### B MP, LIPA, YVETTE, LIVER #### [facility] [address] [place] [address] Dr. Idania Roldan MCHC (RBC) [Mass/Vol] 31.1 g/dL Normal 29.9-35.2 [facility] Comment on above: Performed By: #### B MP, LIPA, YVETTE, LIVER #### [facility] [address] [place] [address] Dr. Idania Roldan MCV (RBC) [Entitic vol] 80.2 fL Critically low 81.0-99. 0 [facility] Comment on above: Performed By: #### B MP, LIPA, YVETTE, LIVER #### [facility] [address] [place] [address] Dr. Idania Roldan MONO # 0.5 103/ul Normal 0.3-0.8 [facility] Comment on above: Performed By: #### B MP, LIPA, YVETTE, LIVER #### [facility] [address] [place] [address] Dr. Idania Roldan Monocytes/100 WBC (Bld) 6.7 % Normal 1.7-12.0 [facility] Comment on above: Performed By: #### B MP, LIPA, YVETTE, LIVER #### [facility] [address] [place] [address] Dr. Idania Roldan NEUT # 3.8 103/ul Normal 1.4-6.5 [facility] Comment on above: Performed By: #### B MP, LIPA, YVETTE, LIVER #### [facility] [address] [place] [address] Dr. Idania Roldan Neutrophils/100 WBC (Bld) 55.6 % Normal 43.0-75.0 [facility] Comment on above: Performed By: #### B MP, LIPA, YVETTE, LIVER #### [facility] [address] [place] [address] Dr. Idania Roldan Platelet mean volume (Bld) [Entitic vol] 9.9 fL Normal 9.5-13.5 [facility] Comment on above: Performed By: #### B MP, LIPA, YVETTE, LIVER #### [facility] [address] [place] [address] Dr. Idania Roldan PLT 265 103/ul Normal 150-450 [facility] Comment on above: Performed By: #### B MP, LIPA, YVETTE, LIVER #### [facility] [address] [place] [address] Dr. Idania Roldan RBC 4.49 106/ul Normal 4.20-5.40 [facility] Comment on above: Performed By: #### B MP, LIPA, YVETTE, LIVER #### [facility] [address] [place] [address] Dr. Idania Roldan WBC 6.8 103/ul Normal 4.0-11.0 [facility] Comment on above: Performed By: #### B MP, LIPA, YVETTE, LIVER #### [facility] [address] [place] [address] Dr. Idania Roldan ER URINE PROFILEon 2 Bilirubin Ql (U) Negative Normal NEGATIVE [facility] Comment on above: Performed By: #### P T, PTT #### [facility] [address] [place] [address] Dr. Idania Roldan Clarity (U) CLEAR Normal CLEAR [facility] Comment on above: Performed By: #### P T, PTT #### [facility] [address] [place] [address] Dr. Idania Roldan Color (U) LT. YELLOW Normal YELLOW [facility] Comment on above: Performed By: #### P T, PTT #### [facility] [address] [place] [address] Dr. Idania Roldan ERULULI A micrscopic examina tion will be performed if indicated. Normal The [facility] Comment on above: Performed By: #### P T, PTT #### [facility] [address] [place] [address] Dr. Idania Roldan Glucose Ql (U) Negative Normal NEGATIVE The [facility] Comment on above: Performed By: #### P T, PTT #### [facility] [address] [place] [address] Dr. Idania Roldan Hemoglobin Ql (U) LARGE Abnormal NEGATIVE The [facility] Comment on above: Performed By: #### P T, PTT #### [facility] [address] [place] [address] Dr. Idania Roldan Ketones Ql (U) Negative Normal NEGATIVE The [facility] Comment on above: Performed By: #### P T, PTT #### [facility] [address] [place] [address] Dr. Idania Roldan LEUKOCYTES TRACE Abnormal NEGATIVE The [facility] Comment on above: Performed By: #### P T, PTT #### [facility] [address] [place] [address] Dr. Idania Roldan Nitrite Ql (U) Negative Normal NEGATIVE The [facility] Comment on above: Performed By: #### P T, PTT #### [facility] [address] [place] [address] Dr. Idania Roldan pH (U) 6.0 [pH] Normal 5-9 [facility] Comment on above: Performed By: #### P T, PTT #### [facility] [address] [place] [address] Dr. Idania Roldan SPEC GRAVITY 1.010 Normal 1.005-<=1.025 [facility] Comment on above: Performed By: #### P T, PTT #### [facility] [address] [place] [address] Dr. Idania Roldan UA PROTEIN Negative Normal NEGATIVE/ TRACE The [facility] Comment on above: Performed By: #### P T, PTT #### [facility] [address] [place] [address] Dr. Idania Roldan UR MICRO IND INDICATED Normal [facility] Comment on above: Performed By: #### P T, PTT #### [facility] [address] [place] [address] Dr. Idania Roldan Urobilinogen Qn (U) 0.2 {Bryan'U}/dL Normal 0.2 - 1. 0 [facility] Comment on above: Performed By: #### P T, PTT #### [facility] [address] [place] [address] Dr. Idania Roldan PROF CHEM 8 (BAS METB)on Anion gap [Moles/Vol] 10.9 mmol/L Normal Th [facility] Comment on above: Performed By: #### P T, PTT #### [facility] [address] [address] [address] Idania Roldan Calcium [Mass/Vol] 8.9 mg/dL Normal 8.5-10.1 [facility] Comment on above: Performed By: #### P T, PTT #### [facility] [address] [address] [address] Idania Roldan Chloride [Moles/Vol] 104 mmol/L Normal 98-107 [facility] Comment on above: Performed By: #### P T, PTT #### [facility] [address] [place] [address] Dr. Idania Roldan CO2 [Moles/Vol] 28.9 mmol/L Normal 21.0-32.0 [facility] Comment on above: Performed By: #### P T, PTT #### [facility] [address] [place] [address] Dr. Idania Roldan Creatinine [Mass/Vol] 0.71 mg/dL Normal 0.55-1.02 [facility] Comment on above: Performed By: #### P T, PTT #### [facility] [address] [place] [address] Dr. Idania Roldan EGFR-AF CENTRAL AFRICAN >60 Normal >=60 [facility] Comment on above: Performed By: #### P T, PTT #### [facility] [address] [place] [address] Dr. Idania Roldan EGFR-NON AF CENTRAL AFRICAN >60 Normal >=60 [facility] Comment on above: Performed By: #### P T, PTT #### [facility] [address] [place] [address] Dr. Idania Roldan Glucose [Mass/Vol] 88 mg/dL Normal 74-106 The [facility] Comment on above: Performed By: #### P T, PTT #### [facility] [address] [place] [address] Dr. Idania Roldan Potassium [Moles/Vol] 3.8 mmol/L Normal 3.5-5.1 [facility] Comment on above: Performed By: #### P T, PTT #### [facility] [address] [place] [address] Dr. Idania Roldan Sodium [Moles/Vol] 140 mmol/L Normal 136-145 [facility] Comment on above: Performed By: #### P T, PTT #### [facility] [address] [place] [address] Dr. Idania Roldan Urea nitrogen [Mass/Vol] 13.0 mg/dL Normal 7.0-18.0 [facility] Comment on above: Performed By: #### P T, PTT #### [facility] [address] [place] [address] Dr. Idania Roldan Urea nitrogen/Creatinine [Mass ratio] 18.3 mg/mg Normal [facility] Comment on above: Performed By: #### P T, PTT #### [facility] [address] [place] [address] Dr. Idania Roldan URINE MICROSCOPIC ONLYon BACTERIA NONE SEEN Normal NONE SEEN [facility] Comment on above: Performed By: #### P T, PTT #### [facility] [address] [place] [address] Dr. Idania Roldan Bacteria identified Cx Nom (U) NOT INDICATED Normal [facility] Comment on above: Performed By: #### P T, PTT #### [facility] [address] [place] [address] Dr. Idania Roldan CAST NONE SEEN Normal NONE SEEN [facility] Comment on above: Performed By: #### P T, PTT #### [facility] [address] [place] [address] Dr. Idania Roldan Crystals LM Nom (Urine sed) NONE SEEN Normal NONE SEE N [facility] Comment on above: Performed By: #### P T, PTT #### [facility] [address] [place] [address] Dr. Idania Roldan Epithelial cells LM Ql (Urine sed) FEW Abnormal N ONE SEEN /RARE [facility] Comment on above: Performed By: #### P T, PTT #### [facility] [address] [address] [address] Idania Roldan MUCOUS NONE SEEN Normal NONE SEEN [facility] Comment on above: Performed By: #### P T, PTT #### [facility] [address] [address] [address] Idania Roldan RBC 50-75 Abnormal 0-2 [facility] Comment on above: Performed By: #### P T, PTT #### [facility] [address] [address] [address] Idania Roldan WBC 0-2 Abnormal NONE SEEN [facility] Comment on above: Performed By: #### P T, PTT #### [facility] [address] [place] [address] Dr. Idania Roldan XR ABD FLAT UP_PA Edna 04-29 XR ABD FLAT UP_PA CH EXAMINATION: XR ABD FLAT UP_PA CH HISTORY: Pain ; left flank pain COMPARISON: XR KUB 09/17/2021, XR abdomen with PA chest 11/11/2020 FINDINGS: LUNGS: No infiltrate, pneumothorax, or pleural effusion. MEDIASTINUM: No abnormal widening. BOWEL GAS PATTERN: Non-obstructed. No abnormal dilation or suspicious fluid levels. Numerous bowel sutures and surgical clips scattered within the abdomen. FREE AIR: None. CALCIFICATIONS: No appreciable renal or ureteral stones. Stable pelvic calcifications compatible with phleboliths. BONES: Mild levocurvature of the lumbar spine. OTHER: Negative. IMPRESSION: 1. No acute cardiopulmonary process. 2. Normal bowel gas pattern. No acute findings to account for patient's symptoms. 3. No visible urinary tract calculi, but evaluation is limited by dense overlying bowel content. Electronically authenticated by: RUSSELL DUFF Date: 2022-04-29 13:37 Normal The [facility] US KIDNEYS BLADDERon 022 US KIDNEYS BLADDER EXAMINATION: US KIDN EYS BLADDER HISTORY: Kidney stone , left flank pain, hematuria COMPARISON: No relevant comparison available. TECHNIQUE: Ultrasound examination was performed of the kidneys and urinary bladder. FINDINGS: RIGHT KIDNEY: No evidence of pelvocaliectasis, mass, or calculi. Normal renal cortical parenchymal echogenicity. Color Doppler demonstrates blood flow within the kidney. Slight cortical thinning, 1.0 cm in thickness. Kidney: 10.7 x 5.9 x 5.3 cm LEFT KIDNEY: Contains a nonobstructing 5 mm stone. No evidence of pelvocaliectasis or mass. Normal renal cortical parenchymal echogenicity. Color Doppler demonstrates blood flow within the kidney. No cortical thinning; 1.7 cm in thickness. Kidney: 10.0 x 4.5 x 4.6 cm BLADDER: No visible wall thickening, mass, or calculi. Post void residual: 5 mL URETERAL JETS: Visualized bilaterally. IMPRESSION: 1. Nonobstructing left nephrolithiasis. Otherwise no suspicious findings to account for patient's symptoms. Electronically authenticated by: RUSSELL DUFF Date: 2022-04-16 18:24 Normal [facility]TREM[facility] WO CONTRA ST LEFTon 04-07-2022 CT LOWER EXTREMITY WO CONTRAST LEFT [facility] Department of Radiology [address] [place] [id number] Patient Name: ELVI MOORE : 1980 Sex: F Age: Race: White Pt. Location: Patient Status: D Ordered Date: 03/24/2022 9:30:00 AM Completed Date: 04/07/2022 05:13 PM Requesting Provider: KEVIN LANE Attending Provider: KEVIN LANE Report Copy To: ARLETH ACHARYA Signs & Symptoms: Z96.659 Presence of unspecified artificial knee joint I10 History: [place] Comments: , left knee Exam: CT LOWER EXTREMITY WO CONTRAST LEFT CT LOWER EXTREMITY WO CONTRAST LEFT 04/07/2022 5:13 PM CLINICAL INDICATIONS: Z96.659 Presence of unspecified artificial knee joint I10 TECHNOLOGIST COMMENTS: LEFT KNEE PAIN S/P KNEE SURGERY 6 MONTHS AGO QUESTION FOR THE RADIOLOGIST: , left knee PROTOCOL: Axial CT images of the extremity were obtained without IV contrast. TECHNIQUE: Multidetector CT axial slices of the left knee without IV contrast. Multiplanar reformats were performed and viewed on a separate workstation and reviewed to further define anatomy and possible pathology. All CT scans at this facility use dose modulation, iterative reconstruction, and/or weight based dosing when appropriate to reduce radiation dose to as low as reasonably achievable COMPARISON: Left knee radiographs dated 12/26/2021. FINDINGS: No periprosthetic osseous lucency or fracture. Normal alignment of prosthesis components. No suspicious focal osseous lesion. No abnormal periosteal reaction. Very small suprapatellar joint effusion. No periarticular soft tissue masses or abnormal fluid collections. Mild generalized periarticular muscular atrophy. IMPRESSION: Uncomplicated appearance of left total knee arthroplasty. Electronically signed: Elvis Perez. Transcribed by: [email or web address], User Resident: Electronically Signed by: ELVIS PEREZ @ 04/12/2022 09:46 AM Normal The [facility] Comment on above: Order Comment: , lef t knee C REACTIVE PROTEINon CRP [Mass/Vol] 2.2 mg/L Normal 0.0-7.0 The [facility] Comment on above: Performed By: #### 3 1791 #### [facility] [address] [place] [address], [facility] SEDIMENTATION RATEon 022 SED RATE 30 mm/hr High 0-20 [facility] Comment on above: Performed By: #### 5 6506 #### [facility] [address] [place] [address], [facility] KNEE LEFT 1 OR 2 VWSon 02-12 KNEE LEFT 1 OR 2 VWS [facility] Department of Radiology [address] [place] [id number] Patient Name: ELVI MOORE : 1980 Sex: F Age: Race: White Pt. Location: Patient Status: O Ordered Date: 02/12/2022 7:30:00 AM Completed Date: 02/12/2022 10:29 AM Requesting Provider: KEVIN LANE Attending Provider: KEVIN LANE Report Copy To: Signs & Symptoms: LT KNEE REANNA History: Comments: LT KNEE REANNA Exam: KNEE LEFT 1 OR 2 [facility] KNEE LEFT 1 OR 2 [facility] intraoperative fluoroscopy 02/12/2022 10:29 AM CLINICAL INDICATIONS: LT KNEE ARTHROPLASTY, INTRAOPERATIVE FLUOROSCOPY FOR LEFT KNEE SURGERY. TECHNOLOGIST COMMENTS: 2 secs of fluoro used by Dr Lane PROTOCOL: AP(PA) and Lateral views were obtained. COMPARISON: 12/28/2021 FINDINGS: 2 lateral fluoroscopic images of the left knee obtained demonstrating a left knee arthroplasty. No overlying surgical instruments. 2 seconds fluoroscopy time utilized. IMPRESSION: Intraoperative fluoroscopy for left knee surgery, please refer to operative report. Electronically signed: Sathya Christianson. Transcribed by: [email or web address], User Resident: Electronically Signed by: SATHYA CHRISTIANSON @ 02/13/2022 10:48 PM Normal The [facility] Comment on above: Order Comment: LT KN EE REANNA Operative Reporton 2 Operative Report MR#: [id number] S [facility] Pt. Name: Elvi Moore Room #: 0C Discharge Date: Birthdate: 1980 OPERATIVE REPORT DATE OF SURGERY: 02/12/2022 SURGEON: Kevin Lane M.D. ASSESSOR: None. PREOPERATIVE DIAGNOSIS: Left total knee arthroplasty stiffness. POSTOPERATIVE DIAGNOSIS: Left total knee arthroplasty stiffness. PROCEDURE: Left total knee arthroplasty manipulation under anesthesia. INDICATION FOR PROCEDURE: The patient who had a left total knee arthroplasty cementless implant, who is young. She has significant stiffness. I discussed with her an attempted manipulation under anesthesia to break loose the adhesions and try to get more range of motion. OPERATIVE COURSE: The patient was brought to the operating room, placed supine on the operating table. General anesthesia was obtained. Time-out was completed. The left knee was manipulated under anesthesia. The flexion was to 128 degrees and full extension was obtained, and I could feel palpable crepitus with manipulation of the knee indicating breaking loose of scar adhesions. Electronically Signed by: Kevin Lane M.D. 02/16/2022 07:[address] M.D. Date Dict: 02/12/2022/07:21 A/Kevin Lane M.D. Date Trans: 02/12/2022 09:35 A/taylor [id number] cc: Arleth Acharya M.D. [address] [id number] Normal The [facility] POC GLUCOSE LABon 02-12-2022 Glucose [Mass/Vol] 96 mg/dL Normal 70-100 [facility] Comment on above: Performed By: #### 8 5499 ####[address] [place] [address], [facility] C REACTIVE PROTEINon 022 CRP [Mass/Vol] 1.7 mg/L Normal 0.0-7.0 [facility] Comment on above: Performed By: #### 6 1405 #### [facility] [address] [facility] [place], [place] [id number] [place] [address] SEDIMENTATION RATEon 022 SED RATE 18 mm/hr Normal 0-20 [facility] Comment on above: Performed By: #### 6 1405 #### [facility] [address] [facility] [place] [place] [id number] [place] [address] KNEE LEFT 3 VWSon 12-26-2021 KNEE LEFT 3 S [facility] Department of Radiology [address] [place] [address] Patient Name: ELVI MOORE : 1980 Sex: F Age: Race: White Pt. Location: Patient Status: Ordered Date: 12/26/2021 1:45:00 PM Completed Date: 12/26/2021 01:50 PM Requesting Provider: JORDEN BRODY Attending Provider: Report Copy To: Signs & Symptoms: Z47.1 Aftercare following joint replacement surgery I10 History: [place] Comments: , , , Ordering Provider - JORDEN BRODY CNP , Exam: KNEE LEFT 3 VWS KNEE LEFT 3 VWS 12/26/2021 1:50 PM CLINICAL INDICATIONS: Z47.1 Aftercare following joint replacement surgery I10 TECHNOLOGIST COMMENTS: Patient states having orhto follow up for left knee replacement. Surgery was on 10/30/21. QUESTION FOR THE RADIOLOGIST: , , , Ordering Provider - JORDEN BRODY CNP , PROTOCOL: AP,Lateral and Tangential views were obtained. COMPARISON: 10/30/2021 FINDINGS: Left total knee arthroplasty redemonstrated. There is no evidence of hardware complication, loosening, or periprosthetic fracture. The partially resurfaced patella appears unremarkable. No additional acute fractures are visualized. IMPRESSION: * Unremarkable left total knee arthroplasty. Approved by:Christelle Carr12/26/2021 3:36 PM. I, Yvette Desai,have reviewed the image(s) and agree with the findings in this report. Electronically signed: Yvette Desai. Transcribed by: [email or web address], User Resident: CHRISTELLE ABDI Electronically Signed by: YVETTE DESAI @ 12/26/2021 04:27 PM I personally read this/these film(s) with this resident Normal The [facility] Comment on above: Order Comment: , , = ========= , Ordering Provider - JORDEN BRODY CNP , KNEE LEFT 3 [facility] 12-09-2021 KNEE LEFT 3 [facility] Department of Radiology [address] [place] [id number] Patient Name: ELVI MOORE : 1980 Sex: F Age: Race: White Pt. Location: Patient Status: D Ordered Date: 12/09/2021 9:30:00 AM Completed Date: 12/09/2021 09:37 AM Requesting Provider: JORDEN BRODY Attending Provider: JORDEN BRODY Report Copy To: Signs & Symptoms: Z47.1 Aftercare following joint replacement surgery I10 History: Tiffany Comments: Exam: KNEE LEFT 3 VWS KNEE LEFT 3 S HISTORY: Knee replacement, follow-up. COMPARISON: 10/30/2021. IMPRESSION: 1. Redemonstrated knee arthroplasty, no hardware complication or acute abnormality. Small to moderate joint effusion. 2. Improving soft tissue changes. Electronically signed: Ezio Roberts. Transcribed by: [email or web address], User Resident: Electronically Signed by: EZIO ROBERTS @ 12/10/2021 08:39 AM Normal [facility] Operative Reporton 2 Operative Report MR#: [id number] S [facility] Pt. Name: Elvi Moore Room #: 0C Discharge Date: Birthdate: 1980 OPERATIVE REPORT DATE OF SURGERY: 10/30/2021 SURGEON: Kevin Lane M.D. ASSESSOR: 1. MD Waleska. 2. LAVON Quinones. ANESTHESIA: General anesthesia. ESTIMATED BLOOD LOSS: 100 mL. FLUIDS: Per anesthesia note. COMPLICATIONS: None. SPECIMENS: None. PREOPERATIVE DIAGNOSIS: Left knee osteoarthritis. POSTOPERATIVE DIAGNOSIS: Left knee osteoarthritis. PROCEDURE: Left total knee arthroplasty. COMPONENTS: 1. Sina Persona size 5 femoral component. 2. Size E tibial tray. 3. 10 PS polyethylene insert. 4. oval patella. INDICATIONS FOR PROCEDURE: This is a 40-year-old female, who has severe knee pain and has osteoarthritis. She has elected for total knee arthroplasty given her failure of other nonoperative options. OPERATIVE COURSE: The patient was brought to the operating room and placed supine on the operating table. General anesthesia was obtained. In the left lower extremity, a nonsterile tourniquet was placed, prepped and draped sterilely. Time-out was completed. Preoperative antibiotics were confirmed. The leg was gravity exsanguinated. Tourniquet was insufflated. The midline incision was utilized and dissected down the overlying retinaculum, and full-thickness medial and lateral flaps were raised. A medial parapatellar arthrotomy was made. Fluid was evacuated and appeared to be normal. Soft tissue was dissected away from the anteromedial aspect of the tibia. Medial and lateral synovectomy were completed. Patella was everted and knee was placed in flexion. I drilled the femoral canal. I then suctioned the canal and placed a distal femoral cut jig into position. A distal femoral cut was then made. Once it was made, I then incised the popliteus insertion. The tibia was then subluxed anteriorly. I then made the cut on the tibial side with the extramedullary jig. I made an additional +2 cut to open up the flexion gap a little bit. I then checked the gap in extension and noted that it was acceptable. The drop slaome also noted that the cut appeared to be appropriate as well. The popliteus insertion was incised in flexion. I then had to downsize the femur to get a little bit more gap in flexion. I drilled 2 peg holes 2 mm anteriorly and then recut posterior and posterior chamfer. I then placed the tibial jig into position after re-exposing the tibia. I then pinned in position. I placed the trial in position. I placed the trial on the femoral side and cut for the box. I felt it was appropriate, balance was acceptable. The tracking patella was acceptable. I everted the patella and freehand cut the patella. I then drilled for 3 peg holes and removed some excess bone around the periphery of the patella. The trials were removed. Drilled the lugs on the femoral side and on the tibial side as well. Tourniquet was deflated. I then impacted the cement with tibial tray into position. This was a good initial fit. I also cemented the femoral prosthesis in position, then placed the poly into position, and locked it in position. Knee was placed in extension. I cemented the patella in position with patellar clamp. I then removed the excess bone cement. The arthrotomy was closed itself with #2 interrupted [id number] suture. The remainder of the incision was closed in a layered fashion. Sterile dressing was applied. At the conclusion of the case, all sponge and needle counts were correct. I was present for the critical portions of this case. Electronically Signed by: Kevin Lane M.D. 10/30/2021 07:[address] M.D. Date Dict: 10/30/2021/11:00 A/Kevin Lane M.D. Date Trans: 10/30/2021 12:34 P/mmo [id number] cc: Arleth Acharya M.D. [address], [facility] [place] [id number] Nasir Thacker, DO [address] [facility] [address] [facility] [address] Normal [facility] POC GLUCOSE LABon 10-30-2021 Glucose [Mass/Vol] 88 mg/dL Normal 70-100 The [facility] Comment on above: Performed By: #### 8 5499 ####[address] PORTABLE KNEE LEFT 2 VWSon 0 10-30-2021 PORTABLE KNEE LEFT 2 VWS [facility] Department of Radiology [address] [place] [address] Patient Name: ELVI MOORE : 1980 Sex: F Age: Race: White Pt. Location: OUTP Patient Status: O Ordered Date: 10/30/2021 8:45:00 AM Completed Date: 10/30/2021 10:58 AM Requesting Provider: WHITLEY BONILLA Attending Provider: KEVIN LANE Report Copy To: Signs & Symptoms: Pain History: Comments: Hardware Evaluation, Postop PACU films for L knee s/p TKA. AP and lateral please Exam: PORTABLE KNEE LEFT 2 VWS PORTABLE KNEE LEFT 2 VWS 10/30/2021 10:58 AM CLINICAL INDICATIONS: Pain TECHNOLOGIST COMMENTS: post op left knee surgery QUESTION FOR THE RADIOLOGIST: Hardware Evaluation, Postop PACU films for L knee s/p TKA. AP and lateral please PROTOCOL: AP(PA) and Lateral views were obtained. COMPARISON: 08/12/2021 FINDINGS: Total knee arthroplasty is been performed in the interval. The femoral and tibial components appear excellent in position. Air in the soft tissues and joint space is noted as expected IMPRESSION: No acute hardware complication Electronically signed: Yvette Andrade. Transcribed by: [email or web address], User Resident: Electronically Signed by: YVETTE ANDRADE @ 10/30/2021 11:20 AM Normal [facility] Comment on above: Order Comment: Hardw are Evaluation, Postop PACU films for L knee s/p TKA. AP and lateral please *MRSA/MSSA DNA NASALon 10-07 *MRSA/MSSA DNA NASAL Clinical Report: (D ) Specimen: NASAL SWAB Collected: 10/07/2021 10:51 Status: Final Last Updated: 10/07/2021 15:44 MSSA DNA (Final) Negative MRSA DNA (Final) Negative Normal The [facility] Comment on above: Performed By: #### 3 1595 ####[facility], [place] [id number] [place] [address] APTTon 10-07-2021 aPTT Coag (Bld) [Time] 32.2 s Normal 25.0-35.0 Th e [facility] Comment on above: Result Comment: ALL RESULTS MUST BE INTERPRETED WITH RESPECT TO BLOOD DRAWING ARTIFACT OR DILUTION ERROR OF ANTICOAGULANT AT THE TIME OF SAMPLING. THE APTT SHOULD NOT BE USED TO MONITOR UNFRACTIONATED HEPARIN THERAPY, THIS LABORATORY NO LONGER HAS AN ESTABLISHED THERAPEUTIC RANGE BASED ON THE APTT. IT IS RECOMMENDED THAT THE UFH - HEPARIN ASSAY (ANTI-XA ACTIVITY) BE USED FOR THIS PURPOSE. Performed By: #### 3 1791 #### [facility] [address] BASIC METABOLIC PANELon 12-2 Calcium [Mass/Vol] 9.2 mg/dL Normal 8.6-10.3 [facility] Comment on above: Performed By: #### 3 1791 #### [facility] [address] [facility] [place] [place] [address], [facility] Chloride [Moles/Vol] 106 mmol/L Normal 98-107 [facility] Comment on above: Performed By: #### 3 1 #### [facility] [address] [facility] [place] [place] [address], [facility] CO2 [Moles/Vol] 28 mmol/L Normal 21-31 [facility] Comment on above: Performed By: #### 3 1 #### [facility] [address] [facility] [place] [place] [address], [facility] Creatinine [Mass/Vol] 0.77 mg/dL Normal 0.60-1.20 [facility] Comment on above: Performed By: #### 3 1791 #### [facility] [address] [facility] [place] [place] [address], [facility] GFR/1.73 sq M.predicted brook g blacks MDRD (S/P/Bld) [Vol rate/Area] mL/min/{1.73_m2} Normal >60 [facility] Comment on above: Performed By: #### 3 179 #### [facility] [address] [place] [address], [facility] GFR/1.73 sq M.predicted brook g non-blacks MDRD (S/P/Bld) [Vol rate/Area] mL/min/{1.73_m2} Normal >60 [facility] Comment on above: Performed By: #### 3 1791 #### [facility] [address] [place] [address], [facility] Glucose [Mass/Vol] 84 mg/dL Normal 70-100 The [facility] Comment on above: Performed By: #### 3 1791 #### [facility] [address] [place] [address], [facility] Potassium [Moles/Vol] 4.4 mmol/L Normal 3.5-5.1 [facility] Comment on above: Performed By: #### 3 1791 #### [facility] [address] [place] [address], [facility] Sodium [Moles/Vol] 142 mmol/L Normal 136-145 The [facility] Comment on above: Performed By: #### 3 1791 #### [facility] [address] [facility] [place] [place] [address], [facility] Urea nitrogen [Mass/Vol] 12 mg/dL Normal 7-25 [facility] Comment on above: Performed By: #### 3 1791 #### [facility] [address] [facility] [place] [place] [address], [facility] CBC W/DIFFon 10-07-2021 ABS IMM GRANS 0.0 10*3/uL Normal 0.0-0.2 The [facility] Comment on above: Performed By: #### 6 1405 #### [facility] [address] [facility] [address], [facility] ABS NEUTROPHILS 4.7 10*3/uL Normal 1.6-7.6 The [facility] Comment on above: Performed By: #### 6 1405 #### [facility] [address] [place] [address], [facility] Basophils (Bld) [#/Vol] 0.0 10*3/uL Normal 0.0-0.2 [facility] Comment on above: Performed By: #### 6 1405 #### [facility] [address] [facility] [place] [address], [facility] Basophils/100 WBC (Bld) 0.3 % Normal 0.0-1.0 T he [facility] Comment on above: Performed By: #### 6 1405 #### [facility] [address] [facility] [place] [place] [address], [facility] Eosinophils (Bld) [#/Vol] 0.2 10*3/uL Normal 0.0-0.5 The [facility] Comment on above: Performed By: #### 6 1405 #### [facility] [address] [facility] [place] [place] [address], [facility] Eosinophils/100 WBC (Bld) 1.9 % Normal 0.0-6.0 The [facility] Comment on above: Performed By: #### 6 1405 #### [facility] [address] [facility]. [address] Erythrocyte distribution wid th (RBC) [Ratio] 14.0 % Normal 11.5-15.0 The [facility] Comment on above: Performed By: #### 6 1405 #### [facility] [address] [facility] [address], [facility] Hematocrit (Bld) [Volume fraction] 37.1 % Normal 36.0-45.0 The [facility] Comment on above: Performed By: #### 6 1405 #### [facility] [address] [facility] [place] [address], [facility] Hemoglobin (Bld) [Mass/Vol] 11.3 g/dL Low 12.0-15. 0 The [facility] Comment on above: Performed By: #### 6 1405 #### [facility] [address] [place] [address], [facility] IMMATURE GRANS 0.1 % Normal 0.0-1.0 The [facility] Comment on above: Performed By: #### 6 1405 #### [facility] [address] [facility] [place] [address], [facility] Lymphocytes (Bld) [#/Vol] 2.5 10*3/uL Normal 1.2-4.0 The [facility] Comment on above: Performed By: #### 6 1405 #### [facility] [address] [place] [address], [facility] Lymphocytes/100 WBC (Bld) 31.6 % Normal 20.0-45.0 The [facility] Comment on above: Performed By: #### 6 1405 #### [facility] [address] [facility]. [address] MCH (RBC) [Entitic mass] 25.5 pg Low 27.0-33.0 The [facility] Comment on above: Performed By: #### 6 1405 #### [facility] [address] MCHC (RBC) [Mass/Vol] 30.5 g/dL Low 32.0-35.0 [facility] Comment on above: Performed By: #### 6 1405 #### [facility] [address] [facility] [place] [address], [facility] MCV (RBC) [Entitic vol] 83.7 fL Normal 82.0-98.0 T ramiro [facility] Comment on above: Performed By: #### 6 1405 #### [facility] [address] [facility] [place] [address], [facility] Monocytes (Bld) [#/Vol] 0.5 10*3/uL Normal 0.1-1.0 The [facility] Comment on above: Performed By: #### 6 1405 #### [facility] [address] [facility] [place] [address], [facility] MONOS 6.0 % Normal 5.0-12.0 The [facility] Comment on above: Performed By: #### 6 1405 #### [facility] [address] [facility] [place] [address], [facility] Neutrophils/100 WBC (Bld) 60.1 % Normal 40.0-72.0 The [facility] Comment on above: Performed By: #### 6 1405 #### [facility] [address] [facility] [place] [address], [facility] Nucleated RBC/100 WBC (Bld) [Ratio] 0 % Normal 0-0 The [facility] Comment on above: Performed By: #### 6 1405 #### [facility] [address] [place] [address], [facility] PLAT CNT 233 10*3/uL Normal 150-400 The [facility] Comment on above: Performed By: #### 6 1405 #### [facility] [address] [place] [address], [facility] RBC (Bld) [#/Vol] 4.43 10*6/uL Normal 3.80-5.00 The [facility] Comment on above: Performed By: #### 6 1405 #### [facility] [address] [facility] [address], [facility] WBC (Bld) [#/Vol] 7.85 10*3/uL Normal 4.00-10.60 The [facility] Comment on above: Performed By: #### 6 1405 #### [facility] [address] [place] [address], [facility] PROTHROMBIN TIMEon 1 INR Coag (PPP) [Relative time] 0.94 {INR} Normal 0.91-1.16 The [facility] Comment on above: Result Comment: ACCCP RECOMMENDED INR FO R WARFARIN THERAPY ------- CONDITION INR PROPHYLAXIS OF VENOUS THROMBOSIS 2-3 (HIGH-RISK SURGERY) TREATMENT OF VENOUS THROMBOSIS 2-3 TREATMENT OF PULMONARY EMBOLISM 2-3 PREVENTION OF SYSTEMIC EMBOLISM: 2-3 ACUTE MYOCARDIAL INFARCTION TISSUE HEART VALVES VALVULAR HEART DISEASE ATRIAL FIBRILLATION RECURRENT SYSTEMIC EMBOLISM MECHANICAL HEART VALVE 2.5-3.5 FROM: ORAL ANTICOAGULANTS. MECHANISM OF ACTION, CLINICAL EFFECTIVENESS, AND OPTIMAL THERAPEUTIC RANGE. CHEST 1995;108:231S-246S. Performed By: #### 3 1791 #### [facility] [address] PT Coag (PPP) [Time] 12.6 s Normal 12.3-14.8 [facility] Comment on above: Result Comment: ALL RESULTS MUST BE INTERPRETED WITH RESPECT TO BLOOD DRAWING ARTIFACT OR DILUTION ERROR OF ANTICOAGULANT AT THE TIME OF SAMPLING. Performed By: #### 3 1791 #### [facility] [address] TYPE AND SCREENon 10-07-2021 ABO INTERPRETATION O Normal [facility] Comment on above: Performed By: #### 3 1791 #### [facility] [address] RH INTERPRETATION Positive Normal The [facility] Comment on above: Performed By: #### 3 1791 #### [facility] [address] *MRSA/MSSA DNA NASALon 08-12 *MRSA/MSSA DNA NASAL Clinical Report: (D ) Specimen: NASAL SWAB Collected: 08/12/2021 10:14 Status: Final Last Updated: 08/12/2021 18:58 MSSA DNA (Final) Negative MRSA DNA (Final) Negative Normal The [facility] Comment on above: Performed By: #### 6 1405 #### [facility] [address] [place] [address], [facility] CBC W/DIFFon 08-12-2021 ABS IMM GRANS 0.0 10*3/uL Normal 0.0-0.2 The [facility] Comment on above: Performed By: #### 6 1405 #### [facility] [address] [place] [address], [facility] ABS NEUTROPHILS 3.7 10*3/uL Normal 1.6-7.6 The [facility] Comment on above: Performed By: #### 6 1405 #### [facility] [address] [place] [address], [facility] Basophils (Bld) [#/Vol] 0.0 10*3/uL Normal 0.0-0.2 [facility] Comment on above: Performed By: #### 6 1405 #### [facility] [address] [place] [address], [facility] Basophils/100 WBC (Bld) 0.3 % Normal 0.0-1.0 T ramiro [facility] Comment on above: Performed By: #### 6 1405 #### [facility] [address] [place] [address], [facility] Eosinophils (Bld) [#/Vol] 0.2 10*3/uL Normal 0.0-0.5 [facility] Comment on above: Performed By: #### 6 1405 #### [facility] [address] [place] [address], [facility] Eosinophils/100 WBC (Bld) 2.9 % Normal 0.0-6.0 The [facility] Comment on above: Performed By: #### 6 1405 #### [facility] [address] [place] [address], [facility] Erythrocyte distribution wid th (RBC) [Ratio] 14.0 % Normal 11.5-15.0 The [facility] Comment on above: Performed By: #### 6 1405 #### [facility] [address] [facility]. [address] Hematocrit (Bld) [Volume fraction] 37.0 % Normal 36.0-45.0 The [facility] Comment on above: Performed By: #### 6 1405 #### [facility] [address] Hemoglobin (Bld) [Mass/Vol] 11.6 g/dL Low 12.0-15. 0 The [facility] Comment on above: Performed By: #### 6 1405 #### [facility] [address] IMMATURE GRANS 0.3 % Normal 0.0-1.0 The [facility] Comment on above: Performed By: #### 6 1405 #### [facility] [address] Lymphocytes (Bld) [#/Vol] 2.1 10*3/uL Normal 1.2-4.0 The [facility] Comment on above: Performed By: #### 6 1405 #### [facility] [address] [facility] [address], [facility] Lymphocytes/100 WBC (Bld) 32.5 % Normal 20.0-45.0 The [facility] Comment on above: Performed By: #### 6 1405 #### [facility] [address] [facility] [place] [address], [facility] MCH (RBC) [Entitic mass] 26.8 pg Low 27.0-33.0 The [facility] Comment on above: Performed By: #### 6 1405 #### [facility] [address] [facility] [place] [address], [facility] MCHC (RBC) [Mass/Vol] 31.4 g/dL Low 32.0-35.0 The [facility] Comment on above: Performed By: #### 6 1405 #### [facility] [address] [place] [address], [facility] MCV (RBC) [Entitic vol] 85.5 fL Normal 82.0-98.0 T he [facility] Comment on above: Performed By: #### 6 1405 #### [facility] [address] [facility] [place] [place] [address], [facility] Monocytes (Bld) [#/Vol] 0.5 10*3/uL Normal 0.1-1.0 The [facility] Comment on above: Performed By: #### 6 1405 #### [facility] [address] [facility] [place] [place] [address], [facility] MONOS 6.9 % Normal 5.0-12.0 [facility] Comment on above: Performed By: #### 6 1405 #### [facility] [address] [facility] [place] [place] [address], [facility] Neutrophils/100 WBC (Bld) 57.1 % Normal 40.0-72.0 The [facility] Comment on above: Performed By: #### 6 1405 #### [facility] [address] [facility] [place] [place] [address], [facility] Nucleated RBC/100 WBC (Bld) [Ratio] 0 % Normal 0-0 The [facility] Comment on above: Performed By: #### 6 1405 #### [facility] [address] [place] [address], [facility] PLAT CNT 223 10*3/uL Normal 150-400 The [facility] Comment on above: Performed By: #### 6 1405 #### [facility] [address] [place] [address], [facility] RBC (Bld) [#/Vol] 4.33 10*6/uL Normal 3.80-5.00 The [facility] Comment on above: Performed By: #### 6 1405 #### [facility] [address] [facility] [place] [address], [facility] WBC (Bld) [#/Vol] 6.55 10*3/uL Normal 4.00-10.60 The [facility] Comment on above: Performed By: #### 6 1405 #### [facility] [address] [place], [place] [address] [place] [address] HEMOGLOBIN A1Con 08-12-2021 Glucose [Moles/Vol] 103 mmol/L Normal The [facility] Comment on above: Performed By: #### 3 1791 #### [facility] [address] [place] [address], [facility] HbA1c (Bld) [Mass fraction] 5.2 % Normal 4.0-6.0 The [facility] Comment on above: Performed By: #### 3 1791 #### [facility] [address] [place], [place] [id number] [place] [address] KNEE LEFT 3 Son 08-12-2021 KNEE LEFT 3 [facility] Department of Radiology [address] [place] [id number] Patient Name: ELVI MOORE : 1980 Sex: F Age: Race: White Pt. Location: Patient Status: O Ordered Date: 08/12/2021 8:40:00 AM Completed Date: 08/12/2021 08:41 AM Requesting Provider: KEVIN LANE Attending Provider: KEVIN LANE Report Copy To: SELF, REFERRED Signs & Symptoms: M25.562 Pain in left knee I10 History: Comments: evaluate Exam: KNEE LEFT 3 VWS KNEE LEFT 3 VWS 08/12/2021 8:42 AM CLINICAL INDICATIONS: M25.562 Pain in left knee I10 TECHNOLOGIST COMMENTS: Patient complains of left anterior knee pain. QUESTION FOR THE RADIOLOGIST: evaluate PROTOCOL: Standing AP, Lateral and Tangential views were obtained. COMPARISON: None FINDINGS: No fracture, malalignment, or acute osseous abnormality. Small marginal osteophytes seen on the medial compartment of the knee. Small knee joint effusion. IMPRESSION: No acute osseous abnormality. Small knee joint effusion. Approved by:Jody Fagann110/12/2020 9:23 AM. I, Jah Juarez,have reviewed the image(s) and agree with the findings in this report. Electronically signed: Jah Juarez. Transcribed by: [email or web address], User Resident: JODY KEITH Electronically Signed by: JAH JUAREZ @ 08/12/2021 03:46 PM I personally read this/these film(s) with this resident Normal The [facility] Comment on above: Order Comment: evalu ate Amylaseon 10-09-2018 Amylase enzyme act/vol 56 U/L Normal 28-100 [facility] Comment on above: Performed By: #### L IP, CDP, CP, YVETTE ####[address] [place] [address] CBC with Diffon 10-09-2018 Abs. Basophil <0.03 Normal 0.00-0.[address] [facility] Comment on above: Performed By: #### L IP, CDP, CP, YVETTE ####[address] [place] [address] Abs.Imm.Granulocyte <0.03 Normal 0.00-0.30 [facility] Comment on above: Performed By: #### L IP, CDP, CP, YVETTE ####[address] , [facility] Abs.Neutrophil (Seg) 3.08 k/uL Normal 1.50-8.10 [facility] Comment on above: Performed By: #### L IP, CDP, CP, YVETTE ####[address] , [place] [address] Basophils/100 WBC Auto (Bld) 0 % Normal 0-2 [facility] Comment on above: Performed By: #### L IP, CDP, CP, YVETTE ####[address] , [place] [address] Eosinophils Auto #/vol (Bld) 0.16 10*3/uL Normal 0.00- 0.44 [facility] Comment on above: Performed By: #### L IP, CDP, CP, YVETTE ####[address] , [place] [address] Eosinophils/100 WBC Auto (Bld) 3 % Normal 1-4 [facility] Comment on above: Performed By: #### L IP, CDP, CP, YVETTE ####[address] , [place] [address] Erythrocyte distribution wid th Auto Ratio (RBC) 13.1 % Normal 11.8-14.4 [facility] Comment on above: Performed By: #### L IP, CDP, CP, YVETTE ####[address] , [place] [address] Hematocrit Auto Volume Fraction (Bld) 39.4 % Normal 36.3-47.1 [facility] Comment on above: Performed By: #### L IP, CDP, CP, YVETTE ####[address] , [place] [address] Hemoglobin mass conc (Bld) 13.0 g/dL Normal 11.9-15.1 [facility] Comment on above: Performed By: #### L IP, CDP, CP, YVETTE ####[address] [place] [address] Immature granulocytes #/vol (Bld) 0 % Normal 0 [facility] Comment on above: Performed By: #### L IP, CDP, CP, YVETTE ####[address] , [place] [address] Lymphocytes Auto #/vol (Bld) 2.83 10*3/uL Normal 1.10- 3.70 [facility] Comment on above: Performed By: #### L IP, CDP, CP, YVETTE ####[address] , [place] [address] Lymphocytes/100 WBC Auto (Bld) 44 % High 24-43 [facility] Comment on above: Performed By: #### L IP, CDP, CP, YVETTE ####[address] [place] [address] MCH Auto Entitic mass (RBC) 29.3 pg Normal 25.2-33. 5 [facility] Comment on above: Performed By: #### L IP, CDP, CP, YVETTE ####[address] [place] [address] MCHC Auto mass conc (RBC) 33.0 g/dL Normal 28.4-34.8 [facility] Comment on above: Performed By: #### L IP, CDP, CP, YVETTE ####[address] , [facility]83 MCV Auto Entitic volume (RBC) 88.7 fL Normal 82.6-1 02.9 [facility] Comment on above: Performed By: #### L IP, CDP, CP, YVETTE ####[address] , [place] [address] Monocytes Auto #/vol (Bld) 0.38 10*3/uL Normal 0.10-1. 20 [facility] Comment on above: Performed By: #### L IP, CDP, CP, YVETTE ####[address] [place] [address] Monocytes/100 WBC Auto (Bld) 6 % Normal 3-12 [facility] Comment on above: Performed By: #### L IP, CDP, CP, YVETTE ####[address] [place] [address] Neutrophil (Seg) 47 % Normal 36-65 [facility] Comment on above: Performed By: #### L IP, CDP, CP, YVETTE ####[address] [place] [address] NRBC Automated 0.0 per 100 WBC Normal 0.0 [facility] Comment on above: Performed By: #### L IP, CDP, CP, YVETTE ####[address] [place] [address] Platelet mean volume Auto En titic volume (Bld) 9.4 fL Normal 8.1-13.5 [facility] Comment on above: Performed By: #### L IP, CDP, CP, YVETTE ####[address] [place] [address] Platelets Auto #/vol (Bld) 211 10*3/uL Normal 138-453 [facility] Comment on above: Performed By: #### L IP, CDP, CP, YVETTE ####[address] [place] [address] RBC Auto #/vol (Bld) 4.44 10*6/uL Normal 3.95-5.11 [facility] Comment on above: Performed By: #### L IP, CDP, CP, YVETTE ####[address] [place] [address] WBC Auto #/vol (Bld) 6.5 10*3/uL Normal 3.5-11.3 [facility] Comment on above: Performed By: #### L IP, CDP, CP, YVETTE ####[address] [place] [address] Auto Diff Performed NOT REPORTED Normal [facility] Comment on above: Performed By: #### L IP, CDP, CP, YVETTE ####[address] [place] [address] Platelets Auto #/vol (Bld) NOT REPORTED Normal [facility] Comment on above: Performed By: #### L IP, CDP, CP, YVETTE ####[address] [place] [address] RBC morphology finding Nom (Bld) NOT REPORTED Normal [facility] Comment on above: Performed By: #### L IP, CDP, CP, YVETTE ####[address] [place] [address] WBC Morphology NOT REPORTED Normal [facility] Comment on above: Performed By: #### L IP, CDP, CP, YVETTE ####[address] [place] [address] CT ABDOMEN PELVIS WO CONTRAS Ton 10-09-2018 CT ABDOMEN PELVIS WO CONTRAST EXAMINATION:CT OF THE ABDOMEN AND PELVIS WITHOUT CONTRAST 10/08/2018 11:53 pmTECHNIQUE:CT of the abdomen and pelvis was performed without the administration ofintravenous contrast. Multiplanar reformatted images are provided for review.Dose modulation, iterative reconstruction, and/or weight based adjustment ofthe mA/kV was utilized to reduce the radiation dose to as low as reasonablyachievable.COMPARISON:June 13, 2018.HISTORY:ORDERING SYSTEM PROVIDED HISTORY: flank painFINDINGS:Suboptimal evaluation of the solid abdominal organs and vasculature due tolack of intravenous contrast.Lower Chest: Normal.Liver: Normal.Gallbladder and Bile Ducts: Prior cholecystectomy.Spleen: Normal.Adrenal Glands: Normal.Pancreas: Normal.Genitourinary: Normal.Bowel: Postsurgical changes of gastric bypass. No bowel obstruction. Nosignificant diverticular disease. Prior appendectomy.Vasculature: Normal caliber abdominal aorta.Bones and Soft Tissues: No acute abnormality.Retroperitoneum/Mesentery: No intraperitoneal free air, ascites or fluidcollection. No lymphadenopathy in the abdomen or pelvis.IMPRESSION: No acute abnormality in the abdomen or pelvis.No obstructive uropathy. No urinary calculi or hydronephrosis.Interpreted by:Tl Diaz, DOSigned by:Tl Diaz, DO10/09/18Final result Normal [facility] Comp Metabolic Profon 2017 (cont.) Normal [facility] Comment on above: Result Comment: Aver age GFR for 30-39 years old: 107 mL/min/1.73sq mChronic Kidney Disease: <60 mL/min/1.73sq mKidney failure: <15 mL/min/1.73sq meGFR calculated using average adult body mass. Additional eGFR calculator available at:http://www.MobiMagic/multiple_crcl_2011.htm Performed By: #### L IP, CDP, CP, YVETTE ####[address] [place] [address] Albumin mass conc 4.2 g/dL Normal 3.5-5.2 [facility] Comment on above: Performed By: #### L IP, CDP, CP, YVETTE ####[address] [place] [address] Albumin/Globulin mass ratio 1.4 {ratio} Normal 1.0-2.5 [facility] Comment on above: Performed By: #### L IP, CDP, CP, YVETTE ####[address] [place] [address] Alkaline Phos 75 U/L Normal 35-[address] [facility] Comment on above: Performed By: #### L IP, CDP, CP, YVETTE ####[address] [place] [address] ALT enzyme act/vol 10 U/L Normal 5-33 [facility] Comment on above: Performed By: #### L IP, CDP, CP, YVETTE ####[address] [place] [address] Anion gap 3 molar conc 9 mmol/L Normal 9-17 [facility] Comment on above: Performed By: #### L IP, CDP, CP, YVETTE ####[address] [place] [address] AST enzyme act/vol 13 U/L Normal <32 [facility] Comment on above: Performed By: #### L IP, CDP, CP, YVETTE ####[address] [place] [address] Bilirubin Ql (U) 0.27 mg/dL Low 0.3-1.2 [facility] Comment on above: Performed By: #### L IP, CDP, CP, YVETTE ####[address] [place] [address] BUN/CRE Ratio 17 Normal 9-[address] [facility] Comment on above: Performed By: #### L IP, CDP, CP, YVETTE ####[address] [place] [address] Calcium mass conc 8.9 mg/dL Normal 8.6-10.4 [facility] Comment on above: Performed By: #### L IP, CDP, CP, YVETTE ####[address] [place] [address] Chloride molar conc 103 mmol/L Normal 98-107 [facility] Comment on above: Performed By: #### L IP, CDP, CP, YVETTE ####[address] [place] [address] CO2 molar conc 27 mmol/L Normal 20-31 [facility] Comment on above: Performed By: #### L IP, CDP, CP, YVETTE ####[address] [place] [address] Creatinine mass conc 0.60 mg/dL Normal 0.50-0.90 [facility] Comment on above: Performed By: #### L IP, CDP, CP, YVETTE ####[address] [place] [address] GFR, Amer >60 Normal >60 [facility] Comment on above: Performed By: #### L IP, CDP, CP, YVETTE ####[address] [place] [address] GFR,non Amer >60 Normal >60 [facility] Comment on above: Performed By: #### L IP, CDP, CP, YVETTE ####[address] [place] [address] Glucose mass conc 89 mg/dL Normal 70-99 [facility] Comment on above: Performed By: #### L IP, CDP, CP, YVETTE ####[address] [place] [address] Potassium molar conc 4.1 mmol/L Normal 3.7-5.3 [facility] Comment on above: Performed By: #### L IP, CDP, CP, YVETTE ####[address] [place] [address] Protein mass conc 7.2 g/dL Normal 6.4-8.3 [facility] Comment on above: Performed By: #### L IP, CDP, CP, YVETTE ####[address] [place] [address] Sodium molar conc 139 mmol/L Normal 135-144 [facility] Comment on above: Performed By: #### L IP, CDP, CP, YVETTE ####[address] [place] [address] Staging: Normal [facility] Comment on above: Result Comment: Stag e 1: Some kidney damage normal GFRStage 2: Mild kidney damage GFR 60-89Stage 3: Moderate kidney damage GFR 30-59Stage 4: Severe kidney damage GFR 15-29Stage 5: Severe kidney damage GFR <15ESRD - chronic treatment by dialysis or transplant Performed By: #### L IP, CDP, CP, YVETTE ####[address] , [place] [id number] Urea nitrogen mass conc 10 mg/dL Normal 6-20 [facility] Comment on above: Performed By: #### L IP, CDP, CP, YVETTE ####[address] [place], [place] [id number] Cult,Urineon 10-09-2018 Cult,Urine Specimen Description .CLEAN CATCH URINE Special Requests NOT REPORTED Culture STREPTOCOCCI, BETA HEMOLYTIC GROUP B 10 to 50,000 CFU/ML Report Status FINAL 10/09/2018 Normal [facility] Comment on above: Performed By: #### C DP ####[place] [address] [place], [place] [id number] #### BMP, HCG ####[address] [place] [address] Lipaseon 10-09-2018 Lipase enzyme act/vol 63 U/L High 13-60 [facility] Comment on above: Performed By: #### L IP, CDP, CP, YVETTE ####[address] , [place] [id number] UA w/Reflex Cultureon 2017 Acetoacetic Acid,Ur Negative Normal NEG [facility] Comment on above: Performed By: #### U MICAO, UAX ####[address] [place] [address] Bilirubin, SemiQt,Ur Negative Normal NEG [facility] Comment on above: Performed By: #### U MICAO, UAX ####[address] [place] [address] Color YELLOW Normal YEL [facility] Comment on above: Performed By: #### U MICAO, UAX ####[address] [place] [address] Glucose,Semi-qnt,Ur Negative Normal NEG [facility] Comment on above: Performed By: #### U MICAO, UAX ####[address] [place] [address] Hemoglobin, Ur 3+ Abnormal NEG [facility] Comment on above: Performed By: #### U MICAO, UAX ####[address] [place] [address] Leuckocyte Esterase SMALL Abnormal NEG [facility] Comment on above: Performed By: #### U MICAO, UAX ####[address] [place] [address] Nitrite,Ur Negative Normal NEG [facility] Comment on above: Performed By: #### U MICAO, UAX ####[address] [place] [address] PH,Ur 7.5 Normal 5.0-9.0 [facility] Comment on above: Performed By: #### U MICAO, UAX ####[address] [place] [address] Protein, Semi-qnt,Ur Negative Normal NEG [facility] Comment on above: Performed By: #### U MICAO, UAX ####[address] [place] [address] Spec. [place],Ur 1.010 Normal 1.010-1.020 [facility] Comment on above: Performed By: #### U MICAO, UAX ####[address] [place] [address] Turbidity CLOUDY Abnormal CLEAR [facility] Comment on above: Performed By: #### U MICAO, UAX ####[address] [place] [address] Urobilinogen,Ur Normal Normal NORM [facility] Comment on above: Performed By: #### U MICAO, UAX ####[address] [place] [address] Comment NOT REPORTED Normal [facility] Comment on above: Performed By: #### U MICAO, UAX ####[address] [place] [address] Urinalysis,Microon 8 ----- Normal [facility] Comment on above: Performed By: #### U RAHULO, UAX ####[address] [place] [address] Amorphous Sediment 2+ Abnormal NONE [facility] Comment on above: Performed By: #### U RAHULO, UAX ####[address] [place] [address] Epithelial cells 2 TO 5 Normal 0-25 [facility] Comment on above: Performed By: #### U RAHULO, UAX ####[address] [place] [address] RBC Test strip #/vol (U) 5 TO 10 Normal 0-2 [facility] Comment on above: Performed By: #### U MICAO, UAX ####[address] [place] [address] Urine WBC's 0 TO 2 Normal 0-5 [facility] Comment on above: Performed By: #### U MICAO, UAX ####[address] [place] [address] Bacteria NOT REPORTED Normal NONE [facility] Comment on above: Performed By: #### U RAHULO, UAX ####[address] [place] [address] Casts NOT REPORTED Normal [facility] Comment on above: Performed By: #### U MICAO, UAX ####[address] [place] [address] Crystals NOT REPORTED Normal NONE [facility] Comment on above: Performed By: #### U MICAO, UAX ####[address] [place] [address] Epithelial, Renal NOT REPORTED Normal 0 [facility] Comment on above: Performed By: #### U MICAO, UAX ####[address] [place] [address] Mucus Strands NOT REPORTED Normal NONE [facility] Comment on above: Performed By: #### U MICAO, UAX ####[address] [place] [address] Other Observations NOT REPORTED Normal NREQ [facility] Comment on above: Performed By: #### U MICAO, UAX ####[address] [place] [address] Trichomonas NOT REPORTED Normal NONE [facility] Comment on above: Performed By: #### U MICAO, UAX ####[address] [place] [address] Yeast NOT REPORTED Normal NONE [facility] Comment on above: Performed By: #### U MICAO, UAX ####[address] [place] [address] Basic Metabolic Profon 06-13 (cont.) Normal [facility] Comment on above: Result Comment: Aver age GFR for 30-39 years old: 107 mL/min/1.73sq mChronic Kidney Disease: <60 mL/min/1.73sq mKidney failure: <15 mL/min/1.73sq meGFR calculated using average adult body mass. Additional eGFR calculator available at:http://www.[employer]Rose.[employer] Egg/multiple_crcl_2012.htm Performed By: #### B MP, CDP ####[address] [place] [address] Anion gap 3 molar conc 12 mmol/L Normal 9-17 [facility] Comment on above: Performed By: #### B MP, CDP ####[address] [place] [address] BUN/CRE Ratio 17 Normal 9-[address] [facility] Comment on above: Performed By: #### B MP, CDP ####[address] [place] [address] Calcium mass conc 9.1 mg/dL Normal 8.6-10.4 [facility] Comment on above: Performed By: #### B MP, CDP ####[address] [place] [address] Chloride molar conc 103 mmol/L Normal 98-107 [facility] Comment on above: Performed By: #### B MP, CDP ####[address] [place] [address] CO2 molar conc 26 mmol/L Normal 20-31 [facility] Comment on above: Performed By: #### B MP, CDP ####[address] [place] [address] Creatinine mass conc 0.72 mg/dL Normal 0.50-0.90 [facility] Comment on above: Performed By: #### B MP, CDP ####[address] [place] [address] GFR, Amer >60 Normal >60 [facility] Comment on above: Performed By: #### B MP, CDP ####[address] [place] [address] GFR,non Amer >60 Normal >60 [facility] Comment on above: Performed By: #### B RHIANNA, CDP ####[address] [place] [address] Glucose mass conc 98 mg/dL Normal 70-99 [facility] Comment on above: Performed By: #### B MP, CDP ####[address] [place] [address] Potassium molar conc 3.7 mmol/L Normal 3.7-5.3 [facility] Comment on above: Performed By: #### B RHIANNA, CDP ####[address] [place] [address] Sodium molar conc 141 mmol/L Normal 135-144 [facility] Comment on above: Performed By: #### B RHIANNA, CDP ####[address] [place] [address] Staging: Normal [facility] Comment on above: Result Comment: Stag e 1: Some kidney damage normal GFRStage 2: Mild kidney damage GFR 60-89Stage 3: Moderate kidney damage GFR 30-59Stage 4: Severe kidney damage GFR 15-29Stage 5: Severe kidney damage GFR <15ESRD - chronic treatment by dialysis or transplant Performed By: #### B RHIANNA, CDP ####[address] [place] [address] Urea nitrogen mass conc 12 mg/dL Normal 6-20 M [facility] Comment on above: Performed By: #### B RHIANNA, CDP ####[address] [place] [address] CBC with Diffon 06-13-2018 Abs. Basophil <0.03 Normal 0.00-0.[address] [facility] Comment on above: Performed By: #### B MP, CDP ####[address] [place] [address] Abs.Imm.Granulocyte <0.03 Normal 0.00-0.30 [facility] Comment on above: Performed By: #### B MP, CDP ####[address] , [facility]83 Abs.Neutrophil (Seg) 4.75 k/uL Normal 1.50-8.10 [facility] Comment on above: Performed By: #### B MP, CDP ####[address] , [facility]83 Basophils/100 WBC Auto (Bld) 0 % Normal 0-2 [facility] Comment on above: Performed By: #### B MP, CDP ####[address] , [place] [address] Eosinophils Auto #/vol (Bld) 0.23 10*3/uL Normal 0.00- 0.44 [facility] Comment on above: Performed By: #### B RHIANNA, CDP ####[address] , [place] [address] Eosinophils/100 WBC Auto (Bld) 2 % Normal 1-4 [facility] Comment on above: Performed By: #### B MP, CDP ####[address] , [facility]83 Erythrocyte distribution wid th Auto Ratio (RBC) 12.9 % Normal 11.8-14.4 [facility] Comment on above: Performed By: #### B MP, CDP ####[address] , [place] [address] Hematocrit Auto Volume Fraction (Bld) 38.9 % Normal 36.3-47.1 [facility] Comment on above: Performed By: #### B MP, CDP ####[address] , [facility]83 Hemoglobin mass conc (Bld) 12.6 g/dL Normal 11.9-15.1 [facility] Comment on above: Performed By: #### B MP, CDP ####[address] [place] [address] Immature granulocytes #/vol (Bld) 0 % Normal 0 [facility] Comment on above: Performed By: #### B MP, CDP ####[address] [place] [address] Lymphocytes Auto #/vol (Bld) 3.99 10*3/uL High 1.10- 3.70 [facility] Comment on above: Performed By: #### B MP, CDP ####[address] [place] [address] Lymphocytes/100 WBC Auto (Bld) 42 % Normal 24-43 [facility] Comment on above: Performed By: #### B MP, CDP ####[address] [place] [address] MCH Auto Entitic mass (RBC) 29.4 pg Normal 25.2-33. 5 [facility] Comment on above: Performed By: #### B MP, CDP ####[address] [place] [address] MCHC Auto mass conc (RBC) 32.4 g/dL Normal 28.4-34.8 [facility] Comment on above: Performed By: #### B MP, CDP ####[address] [place] [address] MCV Auto Entitic volume (RBC) 90.7 fL Normal 82.6-1 02.9 [facility] Comment on above: Performed By: #### B MP, CDP ####[address] [place] [address] Monocytes Auto #/vol (Bld) 0.49 10*3/uL Normal 0.10-1. 20 [facility] Comment on above: Performed By: #### B MP, CDP ####[address] [place] [address] Monocytes/100 WBC Auto (Bld) 5 % Normal 3-12 [facility] Comment on above: Performed By: #### B MP, CDP ####[address] [place] [address] Neutrophil (Seg) 51 % Normal 36-65 [facility] Comment on above: Performed By: #### B MP, CDP ####[address] [place] [address] NRBC Automated 0.0 per 100 WBC Normal 0.0 [facility] Comment on above: Performed By: #### B MP, CDP ####[address] [place] [address] Platelet mean volume Auto En titic volume (Bld) 9.6 fL Normal 8.1-13.5 [facility] Comment on above: Performed By: #### B MP, CDP ####[address] [place] [address] Platelets Auto #/vol (Bld) 224 10*3/uL Normal 138-453 [facility] Comment on above: Performed By: #### B MP, CDP ####[address] [place] [address] RBC Auto #/vol (Bld) 4.29 10*6/uL Normal 3.95-5.11 [facility] Comment on above: Performed By: #### B MP, CDP ####[address] [place] [address] WBC Auto #/vol (Bld) 9.5 10*3/uL Normal 3.5-11.3 [facility] Comment on above: Performed By: #### B MP, CDP ####[address] [place] [address] Auto Diff Performed NOT REPORTED Normal [facility] Comment on above: Performed By: #### B MP, CDP ####[address] [place] [address] Platelets Auto #/vol (Bld) NOT REPORTED Normal [facility] Comment on above: Performed By: #### B MP, CDP ####[address] [place] [address] RBC morphology finding Nom (Bld) NOT REPORTED Normal [facility] Comment on above: Performed By: #### B MP, CDP ####[address] [place] [address] WBC Morphology NOT REPORTED Normal [facility] Comment on above: Performed By: #### B MP, CDP ####[address] , [place] [id number] CT ABDOMEN PELVIS WO CONTRAS Ton 06-13-2018 CT ABDOMEN PELVIS WO CONTRAST EXAMINATION:CT OF THE ABDOMEN AND PELVIS WITHOUT CONTRAST 06/13/2018 2:24 amTECHNIQUE:CT of the abdomen and pelvis was performed without the administration ofintravenous contrast. Multiplanar reformatted images are provided for review.Dose modulation, iterative reconstruction, and/or weight based adjustment ofthe mA/kV was utilized to reduce the radiation dose to as low as reasonablyachievable.COMPARISON:None.HISTOR Y:ORDERING SYSTEM PROVIDED HISTORY: FLANK PAIN, STONE DISEASE SUSPECTEDTECHNOLOGIST PROVIDED HISTORY:FINDINGS:Lower Chest: No acute findings of the lung bases.Organs: Assessment of bowel and organs is limited without IV contrast. Liver,pancreas, adrenal glands and spleen are without acute findings. Nohydronephrosis. No enlarged lymph nodes identified within the abdomen andpelvis. CholecystectomyGI/Bowel: No bowel obstruction. No free air. No focal enterocolitis. Postopchanges of the stomach. Appendix is not well seen. No inflammatory changesin the right lower quadrant.Pelvis: No acute findingsPeritoneum/Retroperitoneum: No abdominal aortic aneurysm. Evaluation ofvascular structures is limited without intravenous contrast.Bones/Soft Tissues: No acute osseous abnormality is identified.IMPRESSION: 1. No acute findings identified in the abdomen and pelvis.Interpreted by:PAULINE Priceigned by:Aric Landeros MD06/13/18Final result Normal [facility] Urinalysis w/ Microon 2017 ----- Normal [facility] Comment on above: Performed By: #### U AMIC ####[address] [place] [address] Acetoacetic Acid,Ur Negative Normal NEG [facility] Comment on above: Performed By: #### U AMIC ####[address] [place] [address] Bacteria 1+ Abnormal NONE [facility] Comment on above: Performed By: #### U AMIC ####[address] [place] [address] Bilirubin, SemiQt,Ur Negative Normal NEG [facility] Comment on above: Performed By: #### U AMIC ####[address] [place] [address] Color YELLOW Normal YEL [facility] Comment on above: Performed By: #### U AMIC ####[address] [place] [address] Epithelial cells 0 TO 2 Normal 0-25 [facility] Comment on above: Performed By: #### U AMIC ####[address] [place] [address] Glucose,Semi-qnt,Ur Negative Normal NEG [facility] Comment on above: Performed By: #### U AMIC ####[address] [place] [address] Hemoglobin, Ur 3+ Abnormal NEG [facility] in Hospital Comment on above: Performed By: #### U AMIC ####[address] [place] [address] Leuckocyte Esterase TRACE Abnormal NEG [facility] Comment on above: Performed By: #### U AMIC ####[address] [place] [address] Nitrite,Ur Negative Normal NEG [facility] Comment on above: Performed By: #### U AMIC ####[address] [place] [address] PH,Ur 6.0 Normal 5.0-9.0 [facility] Comment on above: Performed By: #### U AMIC ####[address] [place] [address] Protein mass conc Negative Normal NEG [facility] Comment on above: Performed By: #### U AMIC ####[address] [place] [address] RBC Test strip #/vol (U) 50 TO 100 Normal 0-2 [facility] Comment on above: Performed By: #### U AMIC ####[address] [place] [address] Spec. [place],Ur 1.025 High 1.010-1.020 [facility] Comment on above: Performed By: #### U AMIC ####[address] [place] [address] Turbidity CLEAR Normal CLEAR [facility] Comment on above: Performed By: #### U AMIC ####[address] [place] [address] Urine WBC's 0 TO 2 Normal 0-5 [facility] Comment on above: Performed By: #### U AMIC ####[address] [place] [address] Urobilinogen,Ur Normal Normal NORM [facility] Comment on above: Performed By: #### U AMIC ####[address] [place] [address] Amorphous Sediment NOT REPORTED Normal NONE [facility] Comment on above: Performed By: #### U AMIC ####[address] [place] [address] Casts NOT REPORTED Normal [facility] Comment on above: Performed By: #### U AMIC ####[address] [place] [address] Comment NOT REPORTED Normal [facility] Comment on above: Performed By: #### U AMIC ####[address] [place] [address] Crystals NOT REPORTED Normal NONE [facility] Comment on above: Performed By: #### U AMIC ####[address] [place] [address] Epithelial, Renal NOT REPORTED Normal 0 [facility] Comment on above: Performed By: #### U AMIC ####[address] [place] [address] Mucus Strands NOT REPORTED Normal NONE [facility] Comment on above: Performed By: #### U AMIC ####[address] [place] [address] Other Observations NOT REPORTED Normal NREQ [facility] Comment on above: Performed By: #### U AMIC ####[address] [place] [address] Trichomonas NOT REPORTED Normal NONE [facility] Comment on above: Performed By: #### U AMIC ####[address] [place] [address] Yeast NOT REPORTED Normal NONE [facility] Comment on above: Performed By: #### U AMIC ####[address] [place] [address] APTTon 02-25-2018 aPTT Coag time (Bld) 32.2 s Normal 23.2-34.4 [facility] Comment on above: Result Comment: Perf ormed at [address] [place] [id number] Performed By: #### P TT, PT ####[address] [place] [address] Basic Metabolic Profon 02-25 (cont.) Normal [facility] Comment on above: Result Comment: Aver age GFR for 30-39 years old: 107 mL/min/1.73sq mChronic Kidney Disease: <60 mL/min/1.73sq mKidney failure: <15 mL/min/1.73sq meGFR calculated using average adult body mass. Additional eGFR calculator available at:http://www.[employer]/multiple_crcl_2011.htm Performed By: #### C DP ####[address] [address] #### BMP, HCG ####[address] [place] [address] Anion gap 3 molar conc 12 mmol/L Normal 9-17 [facility] Comment on above: Performed By: #### C DP ####[address] [address] #### BMP, HCG ####[address] [place] [address] BUN/CRE Ratio 20 Normal 9-[address] [facility] Comment on above: Performed By: #### C DP ####[address] [address] #### BMP, HCG ####[address] [place] [address] Calcium mass conc 9.4 mg/dL Normal 8.6-10.4 [facility] Comment on above: Performed By: #### C DP ####[address] [address] #### BMP, HCG ####[address] [place] [address] Chloride molar conc 101 mmol/L Normal 98-107 [facility] Comment on above: Performed By: #### C DP ####[address] [address] #### BMP, HCG ####[address] [place] [address] CO2 molar conc 28 mmol/L Normal 20-31 [facility] Comment on above: Performed By: #### C DP ####[address] [address] #### BMP, HCG ####[address] [place] [address] Creatinine mass conc 0.59 mg/dL Normal 0.50-0.90 [facility] Comment on above: Performed By: #### C DP ####[address] [address] #### BMP, HCG ####[address] [place] [address] GFR, Amer >60 Normal >60 [facility] Comment on above: Performed By: #### C DP ####[address] [address] #### BMP, HCG ####[address] [place] [address] GFR,non Amer >60 Normal >60 [facility] Comment on above: Performed By: #### C DP ####[address] [address] #### BMP, HCG ####[address] [place] [address] Glucose mass conc 119 mg/dL High 70-99 [facility] Comment on above: Performed By: #### C DP ####[address] [address] #### BMP, HCG ####[address] [place] [address] Potassium molar conc 3.7 mmol/L Normal 3.7-5.3 [facility] Comment on above: Performed By: #### C DP ####[address] [address] #### BMP, HCG ####[address] [place] [address] Sodium molar conc 141 mmol/L Normal 135-144 [facility] Comment on above: Performed By: #### C DP ####[address] [address] #### BMP, HCG ####[address] [place] [address] Staging: Normal [facility] Comment on above: Result Comment: Stag e 1: Some kidney damage normal GFRStage 2: Mild kidney damage GFR 60-89Stage 3: Moderate kidney damage GFR 30-59Stage 4: Severe kidney damage GFR 15-29Stage 5: Severe kidney damage GFR <15ESRD - chronic treatment by dialysis or transplantPerformed at [address] [place] [address] Performed By: #### C DP ####[address] [address] #### BMP, HCG ####[address] [place] [address] Urea nitrogen mass conc 12 mg/dL Normal 6-20 [facility] Comment on above: Performed By: #### C DP ####[address] [address] #### BMP, HCG ####[address] [place] [address] CBC with Diffon 02-25-2018 Abs. Basophil 0.03 k/uL Normal 0.00-0.[address] [facility] Comment on above: Performed By: #### C DP ####[address] [address] #### BMP, HCG ####[address] [place] [address] Abs.Imm.Granulocyte 0.03 k/uL Normal 0.00-0.30 [facility] Comment on above: Result Comment: Perf ormed at [address] [address] Performed By: #### C DP ####[address] [address] #### BMP, HCG ####[address] [place] [address] Abs.Neutrophil (Seg) 5.34 k/uL Normal 1.50-8.10 [facility] Comment on above: Performed By: #### C DP ####[address] [address] #### BMP, HCG ####[address] [place] [address] Basophils/100 WBC Auto (Bld) 0 % Normal 0-2 [facility] Comment on above: Performed By: #### C DP ####[address] [address] #### BMP, HCG ####[address] [place] [address] Eosinophils Auto #/vol (Bld) 0.21 10*3/uL Normal 0.00- 0.44 [facility] Comment on above: Performed By: #### C DP ####[address] [address] #### BMP, HCG ####[address] [place] [address] Eosinophils/100 WBC Auto (Bld) 2 % Normal 1-4 [facility] Comment on above: Performed By: #### C DP ####[address] [address] #### BMP, HCG ####[address] [place] [address] Erythrocyte distribution wid th Auto Ratio (RBC) 12.3 % Normal 11.8-14.4 [facility] Comment on above: Performed By: #### C DP ####[address] [address] #### BMP, HCG ####[address] [place] [address] Hematocrit Auto Volume Fraction (Bld) 41.4 % Normal 36.3-47.1 [facility] Comment on above: Performed By: #### C DP ####[address] [address] #### BMP, HCG ####[address] [place] [address] Hemoglobin mass conc (Bld) 14.0 g/dL Normal 11.9-15.1 [facility] Comment on above: Performed By: #### C DP ####[address] [address] #### BMP, HCG ####[address] [place] [address] Immature granulocytes #/vol (Bld) 0 % Normal 0 [facility] Comment on above: Performed By: #### C DP ####[address] [address] #### BMP, HCG ####[address] [place] [address] Lymphocytes Auto #/vol (Bld) 3.84 10*3/uL High 1.10- 3.70 [facility] Comment on above: Performed By: #### C DP ####[address] [address] #### BMP, HCG ####[address] [place] [address] Lymphocytes/100 WBC Auto (Bld) 38 % Normal 24-43 [facility] Comment on above: Performed By: #### C DP ####[address] [address] #### BMP, HCG ####[address] [place] [address] MCH Auto Entitic mass (RBC) 29.5 pg Normal 25.2-33. 5 [facility] Comment on above: Performed By: #### C DP ####[address] [address] #### BMP, HCG ####[address] [place] [address] MCHC Auto mass conc (RBC) 33.8 g/dL Normal 28.4-34.8 [facility] Comment on above: Performed By: #### C DP ####[address] [address] #### BMP, HCG ####[address] [place] [address] MCV Auto Entitic volume (RBC) 87.3 fL Normal 82.6-1 02.9 [facility] Comment on above: Performed By: #### C DP ####[address] [address] #### BMP, HCG ####[address] [place] [address] Monocytes Auto #/vol (Bld) 0.54 10*3/uL Normal 0.10-1. 20 [facility] Comment on above: Performed By: #### C DP ####[address] [address] #### BMP, HCG ####[address] [place] [address] Monocytes/100 WBC Auto (Bld) 5 % Normal 3-12 [facility] Comment on above: Performed By: #### C DP ####[address] [address] #### BMP, HCG ####[address] [place] [address] Neutrophil (Seg) 55 % Normal 36-65 [facility] Comment on above: Performed By: #### C DP ####[address] [address] #### BMP, HCG ####[address] [place] [address] NRBC Automated 0.0 per 100 WBC Normal 0.0 [facility] Comment on above: Performed By: #### C DP ####[address] [address] #### BMP, HCG ####[address] [place] [address] Platelet mean volume Auto En titic volume (Bld) 9.8 fL Normal 8.1-13.5 [facility] Comment on above: Performed By: #### C DP ####[address] [address] #### BMP, HCG ####[address] [place] [address] Platelets Auto #/vol (Bld) 270 10*3/uL Normal 138-453 [facility] Comment on above: Performed By: #### C DP ####[address] [address] #### BMP, HCG ####[address] [place] [address] RBC Auto #/vol (Bld) 4.74 10*6/uL Normal 3.95-5.11 [facility] Comment on above: Performed By: #### C DP ####[address] [address] #### BMP, HCG ####[address] [place] [address] WBC Auto #/vol (Bld) 10.0 10*3/uL Normal 3.5-11.3 [facility] Comment on above: Performed By: #### C DP ####[address] [address] #### BMP, HCG ####[address] [place] [address] Auto Diff Performed NOT REPORTED Normal [facility] Comment on above: Performed By: #### C DP ####[address] [address] #### BMP, HCG ####[address] [place] [address] Platelets Auto #/vol (Bld) NOT REPORTED Normal [facility] Comment on above: Performed By: #### C DP ####[address] [address] #### BMP, HCG ####[address] [place] [address] RBC morphology finding Nom (Bld) NOT REPORTED Normal [facility] Comment on above: Performed By: #### C DP ####[address] [address] #### BMP, HCG ####[address] [place] [address] WBC Morphology NOT REPORTED Normal [facility] Comment on above: Performed By: #### C DP ####[address] [address] #### BMP, HCG ####[address] [place] [address] CT ABDOMEN PELVIS WO CONTRAS Ton 02-25-2018 CT ABDOMEN PELVIS WO CONTRAST FINAL REPORTPROCEDURE: CT ABDOMEN PELVIS WO CONTRASTTECHNIQUE: Computerized axial tomography of the abdomen and pelvis was performed without intravenous contrast. This study is performed without intravascular contrast material and its sensitivity for abdominal and pelvic pathology, including neoplasms, inflammation, abscess, free fluid, thrombosis, arterial dissection and infarction, is reduced compared with a contrast enhanced study. HISTORY: back pain history of kidney stones COMPARISON: No prior studies are available for comparison.FINDINGS: Visualized lower thorax: No significant abnormality.Liver: Normal size and attenuation.Spleen: Normal size and attenuation.Gallbladder and biliary system: There has been a cholecystectomy..Pancreas: Normal.Adrenals: Normal.Kidneys: There are no kidney stones or ureteral stones. 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 There is no obstruction, colitis or enteritis. The appendix is not identified..Lymph nodes and mesentery: Normal.Vasculature: Normal.Bladder: Normal.Reproductive organs: There has been a hysterectomy.Peritoneum: There is no ascites, free air, abscess or adenopathy..Musculoskeletal structures: No significant abnormality.Other: None.IMPRESSION: Impression: There has been a cholecystectomy..There are no kidney stones or ureteral stones. 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 There is no obstruction, colitis or enteritis. The appendix is not identified..There has been a hysterectomy.There is no ascites, free air, abscess or adenopathy... Interpreted by:PAULINE Menjivarigned by:Martina García MD02/25/18Final result Normal [facility] HCG Screen, Bloodon 02-26-20 18 HCG Qn Negative Normal NEG [facility] Comment on above: Result Comment: Spec imens with hCG levels near the threshold of the test (25 mIU/mL) may give a negative or indeterminate result. In such cases, another test should be performed with a new specimen in 48-72 hours. If early is suspected clinically in this setting, correlation with quantitative serum b-hCG level is suggested.[facility] has confirmed the use of plasma for this test. This has not been cleared or approved by the U.S. Food and Drug Administration. The FDA has determined that such clearance is not necessary.Performed at [address] [place] [address] Performed By: #### C DP ####[facility] [place] [address] #### BMP, HCG ####[address] [place] [address] PTon 02-25-2018 INR Coag RelTime (PPP) 1.0 {INR} Normal 0.9-1.2 [facility] Comment on above: Result Comment: Perf ormed at [address] [place] [address] Performed By: #### P TT, PT ####[address] [place] [address] Prothrombin time (PT) Coag time (PPP) 10.8 s Normal 9.7-12.2 [facility] Comment on above: Performed By: #### P TT, PT ####[address] [place] [address] Urinalysis w/ Microon 2017 ----- Normal [facility] Comment on above: Performed By: #### U AMIC ####[address] [place] [address] Acetoacetic Acid,Ur Negative Normal NEG [facility] Comment on above: Performed By: #### U AMIC ####[address] [place] [address] Amorphous Sediment 2+ Abnormal NONE [facility] Comment on above: Result Comment: Perf ormed at [address] [place] [address] Performed By: #### U AMIC ####[address] [place] [address] Bacteria 1+ Abnormal NONE [facility] Comment on above: Performed By: #### U AMIC ####[address] [place] [address] Bilirubin, SemiQt,Ur Negative Normal NEG [facility] Comment on above: Performed By: #### U AMIC ####[address] [place] [address] Color YELLOW Normal YEL [facility] Comment on above: Performed By: #### U AMIC ####[address] [place] [address] Epithelial cells 0 TO 2 Normal 0-25 [facility] Comment on above: Performed By: #### U AMIC ####[address] [place] [address] Glucose,Semi-qnt,Ur Negative Normal NEG [facility] Comment on above: Performed By: #### U AMIC ####[address] [place] [address] Hemoglobin, Ur 2+ Abnormal NEG [facility] Comment on above: Performed By: #### U AMIC ####[address] [place] [address] Leuckocyte Esterase TRACE Abnormal NEG [facility] Comment on above: Performed By: #### U AMIC ####[address] [place] [address] Mucus Strands TRACE Abnormal NONE [facility] Comment on above: Performed By: #### U AMIC ####[address] [place] [address] Nitrite,Ur Negative Normal NEG [facility] Comment on above: Performed By: #### U AMIC ####[address] [place] [address] PH,Ur 7.5 Normal 5.0-9.0 [facility] Comment on above: Performed By: #### U AMIC ####[address] [place] [address] Protein mass conc Negative Normal NEG [facility] Comment on above: Performed By: #### U AMIC ####[address] [place] [address] RBC Test strip #/vol (U) 5 TO 10 Normal 0-2 [facility] Comment on above: Performed By: #### U AMIC ####[address] [place] [address] Spec. [place],Ur 1.010 Normal 1.010-1.020 [facility] Comment on above: Performed By: #### U AMIC ####[address] [place] [address] Turbidity CLEAR Normal CLEAR [facility] Comment on above: Performed By: #### U AMIC ####[address] [place] [address] Urine WBC's 0 TO 2 Normal 0-5 [facility] Comment on above: Performed By: #### U AMIC ####[address] [place] [address] Urobilinogen,Ur Normal Normal NORM [facility] Comment on above: Performed By: #### U AMIC ####[address] [place] [address] Casts NOT REPORTED Normal [facility] Comment on above: Performed By: #### U AMIC ####[address] [place] [address] Comment NOT REPORTED Normal [facility] Comment on above: Performed By: #### U AMIC ####[address] [place] [address] Crystals NOT REPORTED Normal NONE [facility] Comment on above: Performed By: #### U AMIC ####[address] [place] [address] Epithelial, Renal NOT REPORTED Normal 0 [facility] Comment on above: Performed By: #### U AMIC ####[address] [place] [address] Other Observations NOT REPORTED Normal NREQ [facility] Comment on above: Performed By: #### U AMIC ####[address] [place] [address] Trichomonas NOT REPORTED Normal NONE [facility] Comment on above: Performed By: #### U AMIC ####[address] [place] [address] Yeast NOT REPORTED Normal NONE [facility] Comment on above: Performed By: #### U AMIC ####[address] [place] [address] Otolaryngology Office/Clinic Noteon 2017 Otolaryngology Office/Clinic Note Chief Complaint Patient states I am daphne ng a follow up from ear surgery.'History of Present Illness The patient is status post removal of a retained foreign body and myringoplasty about 2 months ago. Her hearing is finally improved she's not having any further pain or drainage.Physical Exam Vitals & Measurements BP: 131/90 Ears: The left ear was visualized under the operating microscope. The site of the foreign body is now healed with a small area of thinned TM. There is some tympanosclerosis and otherwise scarring but the TM is intact without infection. Additional Vitals BP Position/Location: Sitting, Left arm Peripheral Pulse Rate: 86 bpmAssessment/Plan 1. Postop check Plan: With symptoms resolved and TM healed well we'll see her as neededProblem List/Past Medical History Ongoing Acid reflux Historical No qualifying dataProcedure/Surgical History ANESTH CS HYSTERECTOMY, APPENDECTOMY, Gallbladder removal, Gastric Bypass, Knee, Mastoid Surgery.Medications cephalexin, Not taking Cipro HC 0.2%-1% otic suspension, 3 drops, Ear-Both, BID, Not takingAllergies Demerol HCl (Rash) Toradol (Rash)Social History Alcohol Never Tobacco Former smokerFamily History Breast cancer: Sibling. Diabetes mellitus: Father. Other: Father.Diagnostic Results No qualifying data available. No qualifying data available. No qualifying data available. No qualifying data available.Electronically signed by Roland victor MD, Zhane Mi 12/30/17 16:02 EDT Normal [facility] Otolaryngology Office/Clinic Noteon 11-18-2017 Otolaryngology Office/Clinic Note Chief Complaint post-opHistory of Presen t Illness Elvi is now 1 month status post removal of a foreign body in her left ear with significant local reaction. The ear is no significant drainage at this time with a little bit of irritation in the morning. She is having some ear pain and points behind her ear as the area that the affected. No significant improvement in her hearing.Physical Exam Vitals & Measurements BP: 139/95 Ears: Both canals are clear. The right tympanic membrane reveals extensive tympanosclerosis. The left tympanic membrane shows a small area of pinkish change where the extensive granulation was anterior inferiorly. The remainder the tympanic membrane has a similar tympanic sclerotic change at the right ear does but is intact without evidence of perforation. Neck: Significant pain to palpation of the left TMJ laterally. Additional Vitals BP Position/Location: Sitting, Right arm Peripheral Pulse Rate: 83 bpmAssessment/Plan 1. Postop check Recommendation: I'm giving the patient a TMJ handout as I think this is the major cause of her otalgia. We will see her in follow-up in 6 weeks at which time I would like to get another hearing test. Should the left ear begin draining more significantly I've asked her to call for follow-up at that time.Problem List/Past Medical History Ongoing Acid reflux Historical No qualifying dataProcedure/Surgical History ANESTH CS HYSTERECTOMY, APPENDECTOMY, Gallbladder removal, Gastric Bypass, Mastoid Surgery.Medications cephalexin Cipro HC 0.2%-1% otic suspension, 3 drops, Ear-Both, BIDAllergies Demerol HCl (Rash) Toradol (Rash)Social History Alcohol Never Tobacco Former smokerFamily History Breast cancer: Sibling. Diabetes mellitus: Father. Other: Father.Diagnostic Results No qualifying data available. No qualifying data available. No qualifying data available. No qualifying data available.Electronically signed by Zhane Tamez MD 11/18/17 16:31 EST Normal [facility] Otolaryngology Office/Clinic Note Patient seen for dispense of bilateral s wim plugs. Both plugs display good fit in the ears, and patient confirmed comfort of fit. Proper insertion/removal was practiced successfully. Plan: Return if issues arise regarding swim plugs. N/C, swim plugs paid at last appointment.Electronically signed by Kyara Rima Roque 11/18/17 16:04 EST Normal [facility] Otolaryngology Office/Clinic Noteon 10-28-2017 Otolaryngology Office/Clinic Note Patient seen for bilateral earmold impre ssions for swim plugs. Earmold impressions made without incident and otoscopy prior to and following impressions was unremarkable. Patient chose purple, pink, and green swirl color for plugs. Plan: Return in 3 weeks for dispense, prior to follow-up appointment with Dr. Zhane Tamez. $70.Electronically signed by Kyara Rima Roque 10/28/17 16:31 EST Normal [facility] Otolaryngology Office/Clinic Note Chief Complaint post-opHistory of Presen t Illness Snoozed 2 weeks status post removal of a retained tube/foreign body in her left TM with myringoplasty. She still does have some some fullness and occasional discomfort in her hearing is still somewhat diminished.Physical Exam Vitals & Measurements BP: 135/94 WT: 77 kg Ears: Right canal is clear. The TM is somewhat scarred and slightly retracted without evidence of infection. The left canal laterally is clear but the TM inferiorly reveals a small amount of purulence and some granulation tissue. Additional Vitals BP Position/Location: Sitting, Left arm Peripheral Pulse Rate: 73 bpmAssessment/Plan 1. Postop check Orders: tobramycin-dexamethasone ophthalmic, See Instructions, 3drops BID x 7d shake well before using, # 5 mL, 0 Refill(s), 10/29/17 15:38:00 EST Follow-up in 3 weeks.Problem List/Past Medical History Ongoing Acid reflux Historical No qualifying dataProcedure/Surgical History ANESTH CS HYSTERECTOMY, APPENDECTOMY, Gallbladder removal, Gastric Bypass, Mastoid Surgery.Medications cephalexin Cipro HC 0.2%-1% otic suspension, 3 drops, Ear-Both, BID Tobradex 0.3%-0.1% ophthalmic suspension, See InstructionsAllergies Demerol HCl (Rash) Toradol (Rash)Social History Alcohol Never Tobacco Former smokerFamily History Breast cancer: Sibling. Diabetes mellitus: Father. Other: Father.Diagnostic Results No qualifying data available. No qualifying data available. No qualifying data available. 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 with excessive granulation tissue and TMperf.POSTOPERATIVE DIAGNOSIS: Chronic myringitis, left ear, secondary toforeign body reaction to retained tube with excessive granulation tissueand TM perf.OPERATIVE PROCEDURE: Debridement of granulation tissue with removal offoreign body at TM and myringoplasty.ANESTHESIA: General.ANESTHESIOLOGIST: Susanna Frost, CRNASURGEON: Zhane Tamez, MDCOMPLICATIONS: None.BLOOD LOSS: 10 mL.FINDINGS: Excessive amount of granulation tissue surrounding T-tube withsilver oxide coating.DESCRIPTION OF PROCEDURE: With the patient supine on the operating tableand adequate general anesthesia, standard draping was performed. The leftear canal was visualized under the operating microscope and former tube wasvisualized. The tube was grasped and removed, and using cup forceps, Iremoved the large amount of granulation tissue from the adjacent tympanicmembrane. Once this was removed, I placed a pledget with some Afrinadjacent to the TM, subsequently removed this a few minutes later. Thedefect in the TM was moderate. It also revealed the tympanic membrane atleast 10 times thicker than normal. A paper patch myringoplasty was thendone and the patient was returned to anesthesia, awakened, and dischargedfrom the operative suite with stable vital signs, no bleeding, havingtolerated the procedure well.ZHANE TAMEZD: 10/14/2017 14:55:29 EN/Florian_[email or web address]_IJob#: [id number] Doc#: [id number]: Normal [facility] OPERATIVE REPORT [address] [address] OPERATIVE REPORTPATIENT NAME: ELVI MOORE : 1980[facility] REC NO: [id number] ROOM:ACCOUNT NO: [id number] ADMIT DATE: 10/14/2017PROVIDER: Zhane TamezDATE OF PROCEDURE: 10/14/2017PREOPERATIVE DIAGNOSIS: Granulation tissue, TM perf with retained silveroxide myringotomy tube.POSTOPERATIVE DIAGNOSIS: Granulation tissue, TM perf with retained silveroxide myringotomy tube.OPERATIVE PROCEDURES: Removal of retained tube, debridement of granulationtissue, and placement of paper patch myringoplasty.ANESTHESIA: General.ANESTHESIOLOGIST: Susanna Frost CRNASURGEON: Zhane Tamez, MDCOMPLICATIONS: None.FINDINGS: Retained tube in the inferior TM with extensive granulationtissue. Once removed, TM noted to be extremely thickened.DESCRIPTION OF PROCEDURE: With the patient supine on the operating tableand adequate general anesthesia, standard draping was performed. Left earwas visualized under the operating microscope. I could see a small bit ofa retained tube sticking up above a area of granulation tissue. Thetube was very gently grasped and removed and the granulation tissue cleanedrevealing a perforation in the inferior TM with an extremely thickened TM,at least five to six times normal thickness. A pledget impregnated withAfrin was placed in the area to decrease the bleeding and removed around 3minutes later. The paper patch was then applied to the area after the perfhad been rimmed. The patient was subsequently returned to anesthesia,awakened, and discharged from the operative suite, having tolerated theprocedure well.ZHANE DASHAWND: 10/14/2017 10:15:44 DORA/[id number]_IJob#: [id number] Doc#: [id number]: Scotty araya Otolaryngology Office/Clinic Noteon 09-16-2017 Otolaryngology Office/Clinic Note Chief Complaint left ear painHistory of Present Illness Patient notes that the left ear is somewhat improved still uncomfortable and still draining.Physical Exam Vitals & Measurements BP: 136/97 WT: 77.9 kg ears: Left canal with moist material medially as I suctioned this free there is a dark lesion embedded on the TM which appears to be tissue around it but this is greatly improved as I now can see the lesion. The right canal is clear the tympanic membrane reveals scarring but no infection. General: [Alert and oriented, well nourished, no acute distress]. Lungs: [Clear to auscultation and percussion, non-labored respiration]. Heart: [Normal rate, regular rhythm, no murmur, gallop or edema]. Additional Vitals BP Position/Location: Sitting, Left arm Peripheral Pulse Rate: 72 bpmAssessment/Plan 1. Foreign body in left ear Recommendation: Since this lesion is so exquisitely tender I can barely touch it with the suction we will have to remove it with her asleep.Problem List/Past Medical History Ongoing Acid reflux Historical No qualifying dataProcedure/Surgical History ANESTH CS HYSTERECTOMY, APPENDECTOMY, Gallbladder removal, Gastric Bypass, Mastoid Surgery.Medications cephalexin Cipro HC 0.2%-1% otic suspension, 3 drops, Ear-Both, BIDAllergies Demerol HCl (Rash) Toradol (Rash)Social History Alcohol Never Tobacco Former smokerFamily History Breast cancer: Sibling. Diabetes mellitus: Father. Other: Father.Diagnostic Results No qualifying data available. No qualifying data available. No qualifying data available. No qualifying data available.Electronically signed by __Dashawn GENTILE, Zhane Mi 09/16/17 16:06 EST Normal [facility] Otolaryngology Consultationo n 04-20-2017 Otolaryngology Consultation Chief Complaint Left ear bleedingReason for Consultation L hearing loss /otorrheaHistory of Present Illness Patient is a 36-year-old female who about 6 weeks ago began having some drainage from her left ear for an episode of severe emesis.. This drainage has been bloody it is intermittent and is occasionally associated with pain but is constantly associated with hearing loss. She had similar episodes in the past with a ruptured tympanic membrane on the left but the last episode was more than 3 years ago. She had a small episode of vertigo when the initial episode of drainage began but has had none since. There Has been no change in her vision fever or chills.Review of Systems General Adult ROS Fatigue: No Appetite change: Yes Weakness: NoPhysical Exam Vitals & Measurements RR: 16 BP: 128/101 WT: 101.7 kg General: [Alert and oriented, well nourished, no acute distress]. Eye: [PERRL, EOMI, normal conjunctiva]. HENT: [Normocephalic. Ears canals are clear except for a clot on the left medial inferior canal. Right tympanic membrane extremely scarred with no landmarks. Left tympanic membrane partially visible with some scar tissue but appears aerated. I suctioned on the clot inferiorly creating the severe pain for the patient. There is some form of a solid object possibly a retained tube or foreign body. Nose adequate airway with some septal deformity. Oral cavity: healthy mucous membranes. Neck: [Supple, non-tender, no carotid bruits, no JVD, no lymphadenopathy]. Lungs: [Clear to auscultation and percussion, non-labored respiration]. Heart: [Normal rate, regular rhythm, no murmur, gallop or edema]. Skin: [Skin is warm, dry and pink, no rashes or lesions]. Neurologic: [Awake, alert, and oriented X3, CN II-XII intact]. Psychiatric: [Cooperative, appropriate mood and affect]. Additional Vitals BP Position/Location: Sitting, Left arm Peripheral Pulse Rate: 83 bpmAssessment/Plan 1. Otorrhea, left ear 2. Hearing loss 3. Otalgia of left ear Audiogram: 20dB SNHL w/ high freq. ABG L/ Plan: removal FB/mass ear canal under anesthesiaProblem List/Past Medical History Ongoing No qualifying data Historical No qualifying dataProcedure/Surgical History ANESTH CS HYSTERECTOMY, APPENDECTOMY, Gallbladder removal, Gastric Bypass, Mastoid Surgery.Medications Home cephalexin Cipro HC 0.2%-1% otic suspension, 3 drops, Ear-Both, BID Inpatient No active inpatient medications Prescriptions No active PrescriptionsAllergies Demerol HCl (Rash) Toradol (Rash)Social History Alcohol Never Tobacco Former smokerFamily History Breast cancer: Sibling. Diabetes mellitus: Father. Other: Father.Lab Results No qualifying data available.Electronically signed by Zhane Tamez MD 04/20/17 16:51 EDT Normal [facility] Vital Signs Date Time Vital Sign Value Performing Clinician Kvng roberto 09-13-2023 12:04-0500 Blood Pressure Location Diana HAWKINS [facility] 09-13-2023 12:04-0500 Diastolic blood pressure 74 mm[Hg] Diana HAWKINS [facility] 09-13-2023 12:04-0500 Heart rate 64 /min Diana HAWKINS [facility] 09-13-2023 12:04-0500 Respiratory rate 16 /min Diana HAWKINS [facility] 09-13-2023 12:04-0500 Systolic blood pressure 128 mm[Hg] Diana HAWKINS [facility] 05-28-2023 11:12-0400 Body temperature 98 [degF] MD Arleth Acharya Work Phone: [facility] 05-28-2023 11:12-0400 Body weight 70.76 kg MD Arleth Acharya Work Phone: [facility] 05-28-2023 11:12-0400 Diastolic blood pressure 94 mm[Hg] MD Arleth Acharya Work Phone: [facility] 05-28-2023 11:12-0400 Heart rate 88 /min MD Arleth Acharya Work Phone: [facility] 05-28-2023 11:12-0400 Respiratory rate 16 /min MD Arleth Acharya Work Phone: [facility] 05-28-2023 11:12-0400 SaO2% (BldA) [Mass fraction] 98 % MD Arleth Acharya Work Phone: [facility] 05-28-2023 11:12-0400 Systolic blood pressure 131 mm[Hg] MD Arleth Acharya Work Phone: [facility] 05-28-2023 11:00-0400 Body height 167.64 cm MD Arleth Acharya Work Phone: [facility] 06-29-2022 09:25-0400 Blood Pressure Location Diana HAWKINS [facility] 06-29-2022 09:25-0400 Diastolic blood pressure 84 mm[Hg] Diana HAWKINS [facility] 06-29-2022 09:25-0400 Heart rate 84 /min Diana HAWKINS [facility] 06-29-2022 09:25-0400 Respiratory rate 16 /min Diana HAWKINS [facility] 06-29-2022 09:25-0400 Systolic blood pressure 115 mm[Hg] Diana HAWKINS [facility] Encounters Encounter Date Encounter Type Care Provider Facility Start: 10-19-2023 ambulatory Diana HAWKINS [facility]ili [facility] Start: 09-20-2023 [facility] Start: 09-16-2023 ambulatory Diana Bairdi ty:CD:[id number] Start: 09-13-2023 End: 09-14-2023 ambulatory Arleth Acharya Facility:[facility] Start: 09-13-2023 End: 09-13-2023 Patient encounter procedure Diana HAWKINS [facility] Start: 08-19-2023 ambulatory [facility] Start: 07-20-2023 End: 07-21-2023 ambulatory [facility] Start: 07-20-2023 End: 07-20-2023 ambulatory [facility] Start: 06-28-2023 ambulatory Osiris Calderón Facility:[facility] Start: 06-01-2023 End: 06-01-2023 ambulatory [facility] Start: 05-28-2023 End: 05-28-2023 ambulatory MD Arleth Acharya Work Phone: [facility] Work Phone: Start: 05-28-2023 End: 05-28-2023 Registered Recurring MD Arleth Acharya Work Phone: [facility] Work Phone: Start: 05-04-2023 ambulatory [facility] Start: 04-28-2023 End: 04-28-2023 ambulatory [facility] Start: 04-15-2023 ambulatory JORDEN BRODY [facility] Start: 03-17-2023 ambulatory RUKHSANA MILLER [facility] Start: 02-18-2023 ambulatory RUKHSANA MILLER [facility] Start: 02-11-2023 End: 02-12-2023 ambulatory [facility] Start: 02-08-2023 ambulatory JORDEN BRODY [facility] Start: 01-25-2023 End: 01-25-2023 ambulatory GENNA HEATON Facility:[facility] Start: 01-21-2023 End: 01-22-[address] ARLETH ACHARYA . Facility:[facility] Start: 01-11-2023 ambulatory Diana HAWKINS Facili ty:[facility] Start: 01-08-2023 ambulatory RUKHSANA MILLER [facility] Start: 01-04-2023 End: 01-05-2023 ambulatory Diana HAWKINS Facility:[facility] Start: 01-04-2023 End: 01-04-2023 Patient encounter procedure Diana HAWKINS [facility] Start: 12-24-2022 ambulatory [facility] Start: 12-10-2022 End: 12-11-2022 ambulatory [facility] Start: 12-10-2022 End: 12-10-2022 ambulatory [facility] Start: 11-24-2022 ambulatory [facility] Start: 11-20-2022 End: 11-21-2022 ambulatory JORDEN Holt [facility] Start: 11-03-[address] [facility] Start: 10-21-2022 End: 10-21-2022 Emergency department patient visit ALEYDA MIN [facility] Start: 10-20-2022 End: 10-20-2022 [facility] Start: 10-13-2022 End: 10-13-2022 Emergency department patient visit DUSTY WOMACK [facility] Start: 10-10-[address] ARLETH ACHARYA . Facili ty:[facility] Start: 10-06-2022 End: 10-06-[address] ARLETH ACHARYA . Facility:[facility] Start: 09-30-2022 End: 10-01-[address] ARLETH ACHARYA . Facility:[facility] Start: 09-21-2022 End: 09-21-[address] ARLETH ACHARYA . Facility:[facility] Start: 08-27-2022 Encounter for preprocedural laboratory examination DR DIANA HAWKINS . [facility] Start: 08-27-2022 End: 08-27-[address] DIANA HAWKNIS . Facility:[facility] Start: 08-24-2022 End: 08-25-[address] DIANA HAWKINS . Facility:[facility] Start: 08-24-2022 End: 08-25-2022 Encounter for preprocedural laboratory examination DR DIANA HAWKINS . Facility:[facility] Start: 08-21-2022 End: 08-21-[address] DIANA HAWKINS . Facility:[facility] Start: 08-19-2022 End: 08-20-[address] DIANA HAWKINS . Facility:[facility] Start: 07-23-2022 End: 07-23-[address] DIANA HAWKINS . Facility:[facility] Start: 07-20-2022 End: 07-21-[address] DIANA HAWKINS . Facility:[facility] Start: 07-10-2022 End: 07-11-[address] DIANA HAWKINS . Facility: Start: 06-29-2022 End: 06-29-2022 Patient encounter procedure Diana HAWKINS [facility] Start: 06-11-[address] Facility :[facility] Start: 06-09-2022 End: 06-11-[address] Facility:[facility] Start: 06-03-2022 End: 06-03-2022 Emergency department patient visit ARLETH ACHARYA Facility:[facility] Start: 06-01-2022 End: 06-01-2022 Evaluation and management of inpatient Kevin Lane Facility:[facility] Start: 05-26-2022 End: 05-27-[address] Facility:[facility] Start: 05-26-2022 End: 05-27-2022 Encounter for preprocedural laboratory examination Kevin Lane Facility:[facility] Start: 05-16-2022 ambulatory NICK YOO Facility: Start: 05-01-2022 End: 05-02-2022 ambulatory NICK YOO Facility: Start: 04-29-2022 End: 04-29-2022 ambulatory ENEDINA IVEY . Facility:[facility] Start: 04-16-2022 End: 04-17-[address] ARLETH ACHARYA . Facility: Start: 04-07-2022 End: 04-08-[address] Facility:[facility] Start: 03-24-2022 End: 03-25-2022 ambulatory REFERRED SELF Facility:[facility] Start: 02-12-2022 End: 02-13-[address] Facility:[facility] Start: 01-09-2022 End: 01-10-2022 ambulatory REFERRED SELF Facility:[facility] Start: 12-26-2021 End: 12-27-2021 ambulatory REFERRED SELF Facility:[facility] Start: 12-09-2021 End: 12-10-2021 ambulatory REFERRED SELF Facility:[facility] Start: 10-30-2021 End: 10-31-[address] Facility:[facility] Start: 10-11-2021 End: 11-11-[address] Facility:[facility] Start: 10-07-2021 End: 10-08-[address] Facility:[facility] Start: 10-06-2021 End: 10-11-2021 ambulatory Kevin Nassaring Facility:[facility] Start: 08-12-2021 End: 08-13-2021 ambulatory REFERRED SELF Facility:[facility] Start: 10-09-2018 End: 10-09-2018 Emergency department patient visit [facility] Start: 06-13-2018 End: 06-13-2018 Emergency department patient visit [facility] Start: 02-25-2018 End: 02-26-2018 Emergency department patient visit [facility] Start: 2017 End: 12-31-2017 Ambulatory ZHANE W TAMEZ Facility:[facility] Start: 11-18-2017 End: 11-19-2017 Ambulatory ZHANE W TAMEZ Facility:[facility] Start: 10-28-2017 End: 10-29-2017 Ambulatory Rima Sparrow Facility:[facility] Start: 10-14-2017 End: 10-15-2017 Ambulatory ZHANE W TAMEZ Facility:[facility] Start: 09-16-2017 End: 09-17-2017 Ambulatory ZHANE W TAMEZ Facility:[facility] Start: 06-24-2017 Ambulatory ZHANE W TAMEZ Facility :[facility] Start: 04-20-2017 End: 04-21-2017 Ambulatory ZHANE W TAMEZ Facility:[facility] Procedures Date Procedure Procedure Detail Performing Clinician Start: 08-27-2022 Cystoscopic removal of ureteric stent Diana HAWKINS Start: 07-23-2022 Cystoscopic insertio n of ureteric stent Diana HAWKINS Start: 10-07-[address] Comment on above: Performed By: #### [id number] #### [address] Start: 10-09-2018 Ct abdomen & pelvis w/o contrast material ZHANE TAMEZ Start: 10-09-2018 Assay of amylase ZHANE N IELSEN Start: 10-09-2018 Assay of lipase ZHANE NI ELSEN Start: 10-09-2018 Blood count complete auto&auto difrntl wbc ZHANE TAMEZ Start: 10-09-2018 Comprehensive metabolic panel ZHANE TAMEZ Start: 10-09-2018 Culture bacterial qu anttative colony count urine ZHANE TAMEZ Start: 10-09-2018 Microscopic urinalysis ZHANE TAMEZ Start: 10-09-2018 URINE RT REFLEX TO CULTURE ZHANE TAMEZ Start: 06-13-2018 Ct abdomen & pelvis w/o contrast material ZHANE TAMEZ Start: 06-13-2018 Urnls dip stick/tabl et reagent auto microscopy ZHANE TAMEZ Start: 06-13-2018 Basic metabolic panel calcium total ZHANE TAMEZ Start: 06-13-2018 Blood count complete auto&auto difrntl wbc ZHANE TAMEZ Start: 02-26-2018 Ct abdomen & pelvis w/o contrast material ZHANE TAMEZ Start: 02-25-2018 Basic metabolic panel calcium total ZHANE ELLERELSEN Start: 02-25-2018 Blood count complete auto&auto difrntl wbc ZHANE ELLERELSEN Start: 02-25-2018 Gonadotropin chorionic qualitative ZHANE TAMEZ Start: 02-25-2018 Prothrombin time ZHANE LILLYEN Start: 02-25-2018 Thromboplastin time partial plasma/whole blood ZHANE ELLERELSEN Start: 02-25-2018 Urnls dip stick/tabl et reagent auto microscopy ZHANE ELLERELSEN Start: 10-14-2017 ASSESS ZHANE MATHIS EN Start: 10-14-2017 BEDREST ZHANE MATHIS EN Start: 10-14-2017 Continuous pulse oximetry ZHANE TAMEZ Start: 10-14-2017 INITIATE OXYGEN THERAPY PROTOCOL ZHANE TAMEZ Start: 10-14-2017 NEURO/VASCULAR CHECKS E AIDEN TAMEZ Start: 10-14-2017 NOTIFY PHYSICIAN (SPECIFY) ZHANE TAMEZ Start: 10-14-2017 NURSING COMMUNICATION E AIDEN TAMEZ Start: 10-14-2017 VITAL SIGNS ZHANE MATHIS EN Start: 10-14-2017 INITIATE OXYGEN THERAPY PROTOCOL ZHANE TAMEZ Start: 10-14-2017 NURSING COMMUNICATION E AIDEN TAMEZ Start: 10-14-2017 BEDREST ZHANE MATHIS EN Start: 10-14-2017 NOTIFY PHYSICIAN (SPECIFY) ZHANE TAMEZ Start: 10-14-2017 VITAL SIGNS ZHANE MATHIS EN Start: 10-14-2017 DISCHARGE PATIENT ZHANE TAMEZ Start: 10-14-2017 INSERT PERIPHERAL IV ER CLOVER TAMEZ Appendectomy Diana HAWKINS Arthroplasty of knee Diana HAWKINS Arthroscopy of knee Diana HAWKINS Bypass of stomach Diana GRIMES Cholecystectomy Diana ALVARADO Hysterectomy Dianaatul HAWKINS Implantation of temp orary spinal cord stimulator Dianaatul HAWKINS Tonsillectomy Dianaatul HAWKINS Plan of Treatment Date Care Activity Detail Author Start: 05-28-2023 [facility] Iron binding capacit y [Mass/volume] in Serum or Plasma [facility] Iron saturation [Mas s Fraction] in Serum or Plasma [facility] Immunizations Immunization Date Immunization Notes Care Provider Wicho mckeon 10-08-2021 SARS-CoV-2 (COVID-19 ) mRNA BNT-162b2 vax Dianaatul HAWKINS [facility] 01-30-2021 SARS-CoV-2 (COVID-19 ) mRNA BNT-162b2 vax Diana HAWKINS [facility] 01-09-2021 SARS-CoV-2 (COVID-19 ) mRNA BNT-162b2 vax Diana HAWKINS [facility] 07-11-2020 influenza virus vacc ine, unspecified formulation Diana HAWKINS [facility] 07-03-2020 influenza virus vacc ine, unspecified formulation Diana HAWKINS [facility] 07-18-2019 influenza virus vacc ine, unspecified formulation Diana HAWKINS [facility] 07-08-2018 influenza virus vacc ine, unspecified formulation Diana HAWKINS [facility] 01-01-2016 pneumococcal polysaccharide vaccine, 23 valent Diana HAWKINS [facility] 09-17-2013 influenza virus vacc ine, unspecified formulation Diana HAWKINS [facility] 07-10-2011 tetanus toxoid, redu demar diphtheria toxoid, and acellular pertussis vaccine, adsorbed Diana HAWKINS [facility] Payers Date Payer Category Payer Unknown [id number] 2017 Self-pay 2017 Unknown 2012 Unknown [id number] 2012 Unknown [id number] 1981 Unknown [id number] 2.16.8 40.1.228971.3.579.2.173 1980 Unknown [id number] 2.16.8 40.1.496692.3.579.2.173 1980 Unknown [id number] 2.16.8 40.1.066196.3.579.2.173 1981 Unknown [id number] 2.16.8 40.1.978696.3.579.2.173 1981 Unknown [id number] 2.16.8 40.1.018356.3.579.2.647 1981 Unknown [id number] 2.16.8 40.1.640667.3.579.2.647 1981 Unknown [id number] 2.16.8 40.1.116054.3.579.2.647 1981 Unknown [id number] 2.16.8 40.1.481928.3.579.2.647 1981 Unknown [id number] 2.16.8 40.1.013795.3.579.2.647 1981 Unknown [id number] 2.16.8 40.1.300551.3.579.2.647 1981 Unknown [id number] 2.16.8 40.1.414062.3.579.2.647 1981 Unknown [id number] 2.16.8 40.1.805723.3.579.2.647 1981 Unknown [id number] 2.16.8 40.1.708617.3.579.2.647 1981 Unknown [id number] 2.16.8 40.1.438258.3.579.2.647 1981 Unknown [id number] 2.16.8 40.1.252501.3.579.2.647 1981 Unknown [id number] 2.16.8 40.1.417207.3.579.2.647 1981 Unknown [id number] 2.16.8 40.1.998656.3.579.2.647 1981 Unknown [id number] 2.16.8 40.1.056453.3.579.2.647 1981 Unknown [id number] 2.16.8 40.1.908676.3.579.2.647 1981 Unknown [id number] 2.16.8 40.1.172360.3.579.2.647 1981 Unknown [id number] 2.16.84 0.1.476200.3.579.2.593 1981 Unknown [id number] 2.16.84 0.1.329235.3.579.2.593 1981 Unknown [id number] 2.16.84 0.1.737235.3.579.2.593 1981 Unknown [id number] 2.16.84 0.1.486709.3.579.2.593 1981 Unknown [id number] 2.16.84 0.1.378631.3.579.2.593 1981 Unknown [id number] 2.16.84 0.1.961063.3.579.2.593 1981 Unknown [id number] 2.16.84 0.1.315463.3.579.2.593 1981 Unknown [id number] 2.16.84 0.1.816486.3.579.2.593 1981 Unknown [id number] 2.16.84 0.1.102521.3.579.2.593 1981 Unknown [id number] 2.16.84 0.1.778349.3.579.2.593 1981 Unknown [id number] 2.16.84 0.1.108017.3.579.2.593 1981 Unknown [id number] 2.16.84 0.1.027795.3.579.2.593 1981 Unknown [id number] 2.16.84 0.1.815292.3.579.2.593 1981 Unknown [id number] 2.16.84 [id number] 1980 Unknown [id number] 2.16.84 [id number] 1981 Unknown [id number] 2.16.84 [id number] 1981 Unknown [id number] 2.16.84 [id number] 1981 Unknown [id number] 2.16.84 [id number] 1981 Unknown [id number] 2.16.8 [id number] 1981 Unknown [id number] 2.16.8 [id number] 1981 Unknown [id number] 2.16.8 [id number] 1981 Unknown [id number] 2.16.8 [id number] 1959 Self-pay [id number] Unknown [id number] 2.16.8 [id number] Social History Date Type Detail Facility Start: 06-29-2022 End: 09-13-2023 Tobacco smoking status Ex-smoker (finding) [facility] Sex Assigned At Female [facility] Start: 1980 Sex Assigned At Female F [facility] Tobacco smoking status Never [facility] Functional Status Date Assessment Result Facility 09-13-2023 Functional Status N/A [facility] 06-29-2022 Functional Status N/A [facility] Clinical Notes 06-16-2022 to 09-13-2023 Note Date & Type Note Facility 09-13-2023 Note Chief Complaint Re Referral *Kidney Stone HPI Staff Pt last seen in our office by PRW 06/29/22 as a new pt due to Kidney Stone, Lt flank pain & gross hematuria. Then underwent Lt Ureteroscopy & Lt Stent Placement 07/23/22. Then Repeat Lt Ureteroscopy /Stone Basket extraction & Lt stent removal 08/27/22. (no specimen sent) NEG IVP 12/30/22 (pt was called with results, follow up was cancelled) Pt is here today as a re referral from Dr Acharya due to kidney stone. [facility] ER 08/11/23 KUB & CT 08/11/23 Dr Acharya prescribed Promethazine & Cipro 500mg BID [id number]. [facility] ER 09/08/23 CC: Lt Flank Pain BUN 14 Crea 0.66 eGFR >90 CT ap w/o - small stone Lt Kidney 4-5mm Pt had [facility] in January, July & August. They are sending images through to PACs. Severe Lt flank pain. at time accompanied with N&V. Does have increased urgency with the pain. Pain occasionally radiates down Lt groin, but mainly stays in back area. Has increased in the past week. Denies visible blood in urine, has seen pink on toilet paper. Occasionally pain and burning with voiding. History of Present Illness Tests reviewed: reviewed UA, referral records I have reviewed the previous health record information and history for this patient from external providers. I have reviewed and verified the staff HPI to be accurate for this encounter. Review of Systems PHQ Score Initial Depression Screen Score: 0 SCORE ROS - Provider Constitutional: denies weight loss, denies hot flashes. Eyes: denies eye problems. Gastrointestinal: denies nausea, denies vomiting. Cardiovascular: denies chest pain or angina. Integumentary: no dryness Musculoskeletal: denies musculoskeletal symptoms. ENMT: denies otolaryngeal symptoms. Respiratory: no shortness of breath. Heme/Lymph: denies easy bleeding tendency, denies easy bruising tendency. Psychiatric: no confusion, no anxiety. Genitourinary: See HPI. Physical Exam Vitals & Measurements HR: 64(Peripheral) RR: 16 BP: 128/74 HT: 66 in HT: 167 cm WT: 70.5 kg WT: 155.1 lb BMI: 25.28 General Appearance: alert , no acute distress, well nourished, well developed female. Head: normocephalic . Eyes: normal orbit and globe. ENMT: normal examination of external ears. Chest: Lungs CTA, respirations non labored . Cardiovascular: regular rate and rhythm. Abdomen: soft , non distended, no tenderness, no mass or organomegaly, no hernia. Genitourinary: bladder nonpalpable, no flank tenderness. Lymph Nodes: unremarkable palpation of the cervical area. Skin: warm, dry, no bruising. Psychiatric: cooperative, affect appropriate for age, normal judgement, euthymic mood. Assessment/Plan Elvi is a 42 yo F re-referred by Dr. Acharya due to kidney stone. 1. Kidney stone (N20.0: Calculus of kidney) S/p L Ureteroscopy/L stent placement 07/23/22 and Repeat L Ureteroscopy/Stone Basket extraction/L stent removal 08/27/22. IVP 12/30/22 [facility] - no renal or ureteral stones id'd. Presented to ER multiple times due to flank pain. Dr. Acharya prescribed Promethazine and Cipro 500mg bid [id number]. Reports Dr. Acharya also started her on Flomax but has not had any change in sxs. [facility] 08/11/23 [facility] - no stones id'd. CT AP wo con 08/12/23 [facility] - nonobstructing 5mm L renal stone. No hydro. CT AP wo con 09/08/23 - 4-5mm L renal stone. No hydro. Discussed imaging results. Stone remains in kidneys. Advised pt it is possible a small ureteral stone may be present that has not been seen on imaging or may have ureteral stenosis. Denies difficulty with urination. Feels she empties completely. -Will schedule a Cystoscopy with possible Left Retrogrades, Left Ureteroscopy, Left Laser Litho, Left Stone Basket, Left possible stent placement. The procedure risks, benefits, alternatives and complications have been discussed with the patient. These include but are not limited to bleeding, pain, infection, ureteral perforation, extravasation, stricture formation, sepsis, obstruction, inability to reach the stone, inability to fragment the stone, and inability to retrieve all stone fragments. The need for ancillary procedures such as stent placement and removal, retrograde urography, and percutaneous nephrostomy were also discussed. The patient also understood that a ureteral stent may be placed and removal of the stent is critical. Failure to follow up for stent removal can result in recurrent UTIs, encrustation of the stent, loss of kidney function and need for nephrectomy. All of their questions and concerns have been addressed. Full informed consent has been obtained. Will order General anesthesia. 2. Gross hematuria (R31.0: Gross hematuria) Hx of hysterectomy. UA today shows moderate blood. States she has been wiping up blood after she voids. May be related to stones. Will evaluate at time of cysto. See #1. 3. Left flank pain (R10.9: Unspecified abdominal pain) States she has had severe flank pain with nausea and vomiting. Has been ongoing for 1month (more content not included)... [facility] Comment on above: Result Comment: Elec tronically Signed By: Diana HAWKINS MD\.br\Date and Time Signed: 09/13/23 13:02 EST\.br\Electronically Co-Signed By: Kandice Hardy\.br\Date and Time Co-Signed: 09/13/23 12:56 EST 09-13-2023 Hospital Discharge instructions Patient Education 09/13/2023 12:55:24 Cystoscopy Cystoscopy Cystoscopy is a procedure that is used to help diagnose and sometimes treat conditions that affect the lower urinary tract. The lower urinary tract includes the bladder and the urethra. The urethra is the tube that drains urine from the bladder. Cystoscopy is done using a thin, tube-shaped instrument with a light and camera at the end (cystoscope). The cystoscope may be hard or flexible, depending on the goal of the procedure. The cystoscope is inserted through the urethra, into the bladder. Cystoscopy may be recommended if you have: Urinary tract infections that keep coming back. Blood in the urine (hematuria). An inability to control when you urinate (urinary incontinence) or an overactive bladder. Unusual cells found in a urine sample. A blockage in the urethra, such as a urinary stone. Painful urination. An abnormality in the bladder found during an intravenous pyelogram (IVP) or CT scan. Cystoscopy may also be done to remove a sample of tissue to be examined under a microscope (biopsy). Tell a health care provider about: Any allergies you have. All medicines you are taking, including vitamins, herbs, eye drops, creams, and tijn-exb-dbiqkze medicines. Any problems you or family members have had with anesthetic medicines. Any blood disorders you have. Any surgeries you have had. Any medical conditions you have. Whether you are or may be . What are the risks? Generally, this is a safe procedure. However, problems may occur, including: Infection. Bleeding. Allergic reactions to medicines. Damage to other structures or organs. What happens before the procedure? Medicines Ask your health care provider about: Changing or stopping your regular medicines. This is especially important if you are taking diabetes medicines or blood thinners. Taking medicines such as aspirin and ibuprofen. These medicines can thin your blood. Do not take these medicines unless your health care provider tells you to take them. Taking ilap-yxx-eweystq medicines, vitamins, herbs, and supplements. Tests You may have an exam or testing, such as: X-rays of the bladder, urethra, or kidneys. CT scan of the abdomen or pelvis. Urine tests to check for signs of infection. General instructions Follow instructions from your health care provider about eating or drinking restrictions. Ask your health care provider what steps will be taken to help prevent infection. These steps may include: ?Washing skin with a germ-killing soap. ?Taking antibiotic medicine. Plan to have a responsible adult take you home from the hospital or clinic. What happens during the procedure? You will be given one or more of the following: ?A medicine to help you relax (sedative). ?A medicine to numb the area (local anesthetic). The area around the opening of your urethra will be cleaned. The cystoscope will be passed through your urethra into your bladder. Germ-free (sterile) fluid will flow through the cystoscope to fill your bladder. The fluid will stretch your bladder so that your health care provider can clearly examine your bladder burgess. Your doctor will look at the urethra and bladder. Your doctor may take a biopsy or remove stones. The cystoscope will be removed, and your bladder will be emptied. The procedure may vary among health care providers and hospitals. What can I expect after the procedure? After the procedure, it is common to have: Some soreness or pain in your abdomen and urethra. Urinary symptoms. These include: ?Mild pain or burning when you urinate. Pain should stop within a few minutes after you urinate. This may last for up to 1 week. ?A small amount of blood in your urine for several days. ?Feeling like you need to urinate but producing only a small amount of urine. Follow these instructions at home: Medicines Take zvli-nfw-ikbafaj and prescription medicines only as told by your health care provider. If you were prescribed an antibiotic medicine, take it as told by your health care provider. Do not stop taking the antibiotic even if you start to feel better. General instructions Return to your normal activities as told by your health care provider. Ask your health care provider what activities are safe for you. If you were given a sedative during the procedure, it can affect you for several hours. Do not drive or operate machinery until your health care provider says that it is safe. Watch for any blood in your urine. If the amount of blood in your urine increases, call your health care provider. Follow instructions from your health care provider about eating or drinking restrictions. If a tissue sample was removed for testing (biopsy) during your procedure, it is up to you to get your test results. Ask your health care provider, or the department that is doing the test, when your results will be ready. Drink enough fluid to keep your urine pale yellow. Keep all follow-up visits. This is important. Contact a health care provider if: You have pain that gets worse or does not get better with medicine, especially pain when you urinate. You have trouble urinating. You have more blood in your urine. Get help right away if: You have blood clots in your urine. You have abdominal pain. You have a fever or chills. You are unable to urinate. Summary Cystoscopy is a procedure that is used to help diagnose and sometimes treat conditions that affect the lower urinary tract. Cystoscopy is done using a thin, tube-shaped instrument with a light and camera at the end. After the procedure, it is common to have some soreness or pain in your abdomen and urethra. Watch for any blood in your urine. If the amount of blood in your urine increases, call your health care provider. If you were prescribed an antibiotic medicine, take it as told by your health care provider. Do not stop taking the antibiotic even if you start to feel better. This information is not intended to replace advice given to you by your health care provider. Make sure you discuss any questions you have with your health care provider. Document Revised: 06/10/2022 Document Reviewed: 05/09/2021 Pixelated Patient Education 2022 [employer]. 09/13/2023 12:55:19 Hematuria, Adult Hematuria, Adult Hematuria is blood in the urine. Blood may be visible in the urine, or it may be identified with a test. This condition can be caused by infections of the bladder, urethra, kidney, or prostate. Other possible causes include: Kidney stones. Cancer of the urinary tract. Too much calcium in the urine. Conditions that are passed from parent to child (inherited conditions). Exercise that requires a lot of energy. Infections can usually be treated with medicine, and a kidney stone usually will pass through your urine. If neither of these is the cause of your hematuria, more tests may be needed to identify the cause of your symptoms. It is very important to tell your health care provider about any blood in your urine, even if it is painless or the blood stops without treatment. Blood in the urine, when it happens and then stops and then happens again, can be a symptom of a very serious condition, including cancer. There is no pain in the initial stages of many urinary cancers. Follow these instructions at home: Medicines Take ryzf-qhi-sgsfbvs and prescription medicines only as told by your health care provider. If you were prescribed an antibiotic medicine, take it as told by your health care provider. Do not stop taking the antibiotic even if you start to feel better. Eating and drinking Drink enough fluid to keep your urine pale yellow. It is recommended that you drink 3 4 quarts (2.8 3.8 L) a day. If you have been diagnosed with an infection, drinking cranberry juice in addition to large amounts of water is recommended. Avoid caffeine, tea, and carbonated beverages. These tend to irritate the bladder. Avoid alcohol because it may irritate the prostate (in males). General instructions If you have been diagnosed with a kidney stone, follow your health care provider's instructions about straining your urine to catch the stone. Empty your bladder often. Avoid holding urine for long periods of time. If you are female: ?After a bowel movement, wipe from front to back and use each piece of toilet paper only once. ?Empty your bladder before and after sex. Pay attention to any changes in your symptoms. Tell your health care provider about any changes or any new symptoms. It is up to you to get the results of any tests. Ask your health care provider, or the department that is doing the test, when your results will be ready. Keep all follow-up visits. This is important. Contact a health care provider if: You develop back pain. You have a fever or chills. You have nausea or vomiting. Your symptoms do not improve after 3 days. Your symptoms get worse. Get help right away if: You develop severe vomiting and are unable to take medicine without vomiting. You develop severe pain in your back or abdomen even though you are taking medicine. You pass a large amount of blood in your urine. You pass blood clots in your urine. You feel very weak or like you might faint. You faint. Summary Hematuria is blood in the urine. It has many possible causes. It is very important that you tell your health care provider about any blood in your urine, even if it is painless or the blood stops without treatment. Take cdil-zlr-nmkvurp and prescription medicines only as told by your health care provider. Drink enough fluid to keep your urine pale yellow. This information is not intended to replace advice given to you by your health care provider. Make sure you discuss any questions you have with your health care provider. Document Revised: 05/28/2021 Document Reviewed: 05/28/2021 Pixelated Patient Education 2022 [employer]. Follow Up Care 08/20/2023 11:43:21 With:ROSS GENTILE, Diana Goss, URL Address: [facility] [address] , [place] [address] [id number] When: Unknown Comments:sched cysto [facility] 09-13-2023 Note Urology Cystoscopy Cystoscopy is a procedure that is used to help diagnose and sometimes treat conditions that affect the lower urinary tract. The lower urinary tract includes the bladder and the urethra. The urethra is the tube that drains urine from the bladder. Cystoscopy is done using a thin, tube-shaped instrument with a light and camera at the end (cystoscope). The cystoscope may be hard or flexible, depending on the goal of the procedure. The cystoscope is inserted through the urethra, into the bladder. Cystoscopy may be recommended if you have: ? Urinary tract infections that keep coming back. ? Blood in the urine (hematuria). ? An inability to control when you urinate (urinary incontinence) or an overactive bladder. ? Unusual cells found in a urine sample. ? A blockage in the urethra, such as a urinary stone. ? Painful urination. ? An abnormality in the bladder found during an intravenous pyelogram (IVP) or CT scan. Cystoscopy may also be done to remove a sample of tissue to be examined under a microscope (biopsy). Tell a health care provider about: ? Any allergies you have. ? All medicines you are taking, including vitamins, herbs, eye drops, creams, and ewgb-gqx-gfxipon medicines. ? Any problems you or family members have had with anesthetic medicines. ? Any blood disorders you have. ? Any surgeries you have had. ? Any medical conditions you have. ? Whether you are or may be . What are the risks? Generally, this is a safe procedure. However, problems may occur, including: ? Infection. ? Bleeding. ? Allergic reactions to medicines. ? Damage to other structures or organs. What happens before the procedure? Medicines Ask your health care provider about: ? Changing or stopping your regular medicines. This is especially important if you are taking diabetes medicines or blood thinners. ? Taking medicines such as aspirin and ibuprofen. These medicines can thin your blood. Do not take these medicines unless your health care provider tells you to take them. ? Taking evry-vad-bwbmvmq medicines, vitamins, herbs, and supplements. Tests You may have an exam or testing, such as: ? X-rays of the bladder, urethra, or kidneys. ? CT scan of the abdomen or pelvis. ? Urine tests to check for signs of infection. General instructions ? Follow instructions from your health care provider about eating or drinking restrictions. ? Ask your health care provider what steps will be taken to help prevent infection. These steps may include: ? Washing skin with a germ-killing soap. ? Taking antibiotic medicine. ? Plan to have a responsible adult take you home from the hospital or clinic. What happens during the procedure? ? You will be given one or more of the following: ? A medicine to help you relax (sedative). ? A medicine to numb the area (local anesthetic). ? The area around the opening of your urethra will be cleaned. ? The cystoscope will be passed through your urethra into your bladder. ? Germ-free (sterile) fluid will flow through the cystoscope to fill your bladder. The fluid will stretch your bladder so that your health care provider can clearly examine your bladder burgess. ? Your doctor will look at the urethra and bladder. Your doctor may take a biopsy or remove stones. ? The cystoscope will be removed, and your bladder will be emptied. The procedure may vary among health care providers and hospitals. What can I expect after the procedure? After the procedure, it is common to have: ? Some soreness or pain in your abdomen and urethra. ? Urinary symptoms. These include: ? Mild pain or burning when you urinate. Pain should stop within a few minutes after you urinate. This may last for up to 1 week. ? A small amount of blood in your urine for several days. ? Feeling like you need to urinate but producing only a small amount of urine. Follow these instructions at home: Medicines ? Take kldv-mrr-pashjpe and prescription medicines only as told by your health care provider. ? If you were prescribed an antibiotic medicine, take it as told by your health care provider. Do not stop taking the antibiotic even if you start to feel better. General instructions ? Return to your normal activities as told by your health care provider. Ask your health care provider what activities are safe for you. ? If you were given a sedative during the procedure, it can affect you for several hours. Do not drive or operate machinery until your health care provider says that it is safe. ? Watch for any blood in your urine. If the amount of blood in your urine increases, call your health care provider. ? Follow instructions from your health care provider about eating or drinking restrictions. ? If a tissue sample was removed for testing (biopsy) during your procedure, it is up to you to get your test results. Ask your health care provider, or the department th (more content not included)... [facility] 08-19-2023 Note Pain Medicine Medical [address] [address] Subjective Patient ID: Elvi Moore is a 42 y.o. female. Date:08/19/23 CC: Chief Complaint Patient presents with Follow-up Chronic Left Knee Pain SUBJECTIVE: Elvi Moore is a 42 y.o. female who presents for follow up with a chief complaint of left knee pain. Since last visit patient reports pain is stable. Most recently patient underwent a xray of her stimulator to verify lead position which are still in place despite retention loop lost. 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 She reports dealing with kidney stones and has an ER visit that she was given a short rx of norco so she could use QID temporarily. She disclosed this right away and was unsure what to do. Pain Assessment Pain Assessment: 0-10 Pain Score: 6 Pain Type: Chronic pain Pain Location: Knee Pain Orientation: Left Pain Descriptors: Aching, Burning Pain Frequency: Constant/continuous Pain Onset: Ongoing Clinical Progression: Not changed Aggravating Factors: Walking, Standing, Kneeling, Stairs, Bending Pain Interventions: Medication (See MAR), Cold applied Response to Interventions: SCS has resolved radiating pain down the leg 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 Past Surgical History: Procedure Laterality Date APPENDECTOMY BARIATRIC SURGERY CHOLECYSTECTOMY CYSTOSCOPY HYSTERECTOMY INNER EAR SURGERY JOINT REPLACEMENT 06/01/22 KNEE ARTHROPLASTY Left 06/01/2022 revision KNEE ARTHROPLASTY Left 10/30/2021 KNEE SURGERY arthroscopy ORTHOPEDIC SURGERY 06/01/2022 TUBAL LIGATION UMBILICAL HERNIA REPAIR Allergies Allergen Reactions Toradol [Ketorolac] Shortness of breath and Rash Compazine [Prochlorperazine] Hallucinations Meperidine Rash Other reaction(s): Unknown Objective BP (!) 133/91 (BP Location: Left arm, Patient Position: Sitting, BP Cuff Size: Adult) Pulse 94 Ht 1.676 m (5' 6 ) Wt 68.9 kg (152 lb) BMI 24.53 kg/m??? General: well developed, well nourished, no acute distress Head: normocephalic and atraumatic Eyes: anicteric sclera, normal eye movements Ears: normal hearing Chest/Lungs: quiet, easy, unlabored breathing. Heart: no clubbing, cyanosis, edema Skin: intact without suspicious lesions or rashes Neuropsych: alert and cooperative; normal mood/affect articulates well Gait: normal Assessment/Plan Diagnoses and all orders for this visit: Complex regional pain syndrome type 1 of left lower extremity - HYDROcodone-acetaminophen ([place]) 5-325 mg tablet; Take 1 tablet by mouth if needed in the morning and at bedtime for severe pain (8-10 pain score). Do not start before August 20, 2023. - HYDROcodone-acetaminophen (Wade) 5-325 mg tablet; Take 1 tablet by mouth if needed in the morning and at bedtime for severe pain (8-10 pain score). Do not start before September 19, 2023. Other chronic postprocedural pain - HYDROcodone-acetaminophen (Wade) 5-325 mg tablet; Take 1 tablet by mouth if needed in the morning and at bedtime for severe pain (8-10 pain score). Do not start before August 20, 2023. - HYDROcodone-acetaminophen (Wade) 5-325 mg tablet; Take 1 tablet by mouth if needed in the morning and at bedtime for severe pain (8-10 pain score). Do not start before September 19, 2023. History of total knee arthroplasty, left Presence of neurostimulator Discussed chronic pain, medication use, treatment goals. Medication risk and benefits discussed. The Spine Diagram and Test results were used to explain the condition. PLAN: 1. Refill Wade 5/325mg BID PRN. Okay to fill on fill date 2. Patient instructed to contact us should she receive or prior to filling any additional opioid medications. 3. MAPS/OARRS pulled and reviewed. 4. Lumbar xrays reviewed with patient and reassured of proper lead placement and no migration issues. Continue optimization of neurostimulation 5. RTC in 6-8 weeks with UTILITY REPAIRER for med check All questions are answered, and the patient expresses a full understanding. Available imaging was reviewed with patient and discussed likelihood of pain generator and plan to evaluate and treat. Discussed risks, benefits, and alternatives of interventional procedures (including but not limited to bleeding, infection, adverse reaction to medications and ineffective pain relief) as well as medication dosage, usage, goals of therapy, and side effects. Written instructions and verbal health teaching given to patient, patient verbalizes understanding and agrees with the treatment plan. Pain Management Opioid Plan: The patient has a valid chronic pain condition which requires (more content not included)... [facility] 07-20-2023 Note [place] [address] Subjective Patient ID: Elvi Moore is a 42 y.o. female. Date 07/20/12 CC: Chief Complaint Patient presents with Follow-up Left knee pain SUBJECTIVE: Elvi Moore is a 42 y.o. female who presents for follow up with a chief complaint of left knee pain following knee operation May,. Without medication, knee pain is a 8/10 and with medication the pain goes down to 5/10. Patient reports no back pain, no martinez pain, and can no longer feel the device. Since last visit patient reports pain is worse in the left knee. Most recently patient underwent a spinal cord stimulator implant (DRG stimulator) on 04/28/2023 targeting L3 L4 with reports of complete elimination of back and martinez pain, but she feels her knee pain is worse. At her last appointment on 06/01/2023, [employer] rep was at bed side and changed her settings. However, the patient feels this made it worse and changed her stimulator back to her original settings. Of note, patient sent a message on 07/07/2023 saying the SCS took away the martinez pain, but that she still has significant knee pain. We provided her with the contact number for the [facility]. Patient has repeatedly called the number we provided, but has still not been able to get a hold of the [employer] rep. Pain Medications: Wade 5-325 BID. Pain relief lasts around 6 hours. Makes knee pain more tolerable. Tylenol, Ibuprofen bring some relief 1% Voltaren gel Occasionally uses Zanaflex to help her sleep Past Procedures: Left Lumbar sympathetic nerve block 12/10/2022 CSI left knee 11/03/2022 Pain Assessment Pain Assessment: 0-10 Pain Score: 6 Pain Type: Chronic pain Pain Location: Knee Pain Orientation: Left Pain Descriptors: Sharp, Stabbing, Aching Pain Frequency: Constant/continuous Pain Onset: Ongoing Clinical Progression: Not changed Aggravating Factors: Walking, Standing, Stairs, Kneeling Pain Interventions: Medication (See MAR), Cold applied, Rest Response to Interventions: scs 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 Past Surgical History: Procedure Laterality Date APPENDECTOMY BARIATRIC SURGERY CHOLECYSTECTOMY CYSTOSCOPY HYSTERECTOMY INNER EAR SURGERY JOINT REPLACEMENT 06/01/22 KNEE ARTHROPLASTY Left 06/01/2022 revision KNEE ARTHROPLASTY Left 10/30/2021 KNEE SURGERY arthroscopy ORTHOPEDIC SURGERY 06/01/2022 TUBAL LIGATION UMBILICAL HERNIA REPAIR Allergies Allergen Reactions Toradol [Ketorolac] Shortness of breath and Rash Compazine [Prochlorperazine] Hallucinations Meperidine Rash Other reaction(s): Unknown Review of Systems Objective BP 121/81 (BP Location: Left arm, Patient Position: Sitting, BP Cuff Size: Adult) Pulse 77 Ht 1.676 m (5' 6 ) Wt 68.9 kg (152 lb) BMI 24.53 kg/m??? General: well developed, well nourished, no acute distress Head: normocephalic and atraumatic Eyes: anicteric sclera, normal eye movements Ears: normal hearing Chest/Lungs: quiet, easy, unlabored breathing. Heart: no clubbing, cyanosis, edema Skin: intact without suspicious lesions or rashes Neuropsych: alert and cooperative; normal mood/affect articulates well Lower Extremity Musculoskeletal: No atrophy or tone abnormalities are noted. Gait: antalgic Assist device: cane if walking long distances Alignment spine: normal Tenderness: no tenderness over lumbar paraspinals or lumbar facets Range of motion lumbar spine: Flexion: normal >60 degrees Extension: normal >25 degrees Left axial rotation: normal >15 degrees Right axial rotation: normal > 15 degrees Pain with lumbar motion: negative Motor: Right hip flexion: +5 Right knee flexion: +5 Right knee extension: +5 Right foot plantar flexion: +5 Right foot dorsi flexion: +5 Left hip flexion: +5 Left knee flexion: +5 Left knee extension: +5 Left ankle plantar flexion: +5 Left ankle dorsi flexion: +5 Sensory: Right lower extremity: grossly intact to light touch Left lower extremity: grossly intact to light touch Right seated leg raising: negative Left seated leg raising: negative Deep Tendon Reflexes/ Pathologic Reflexes Right Patellar reflex: +2 Left Patellar reflex: +1 Right Achilles reflex: +1 Left Achilles reflex: +1 Ankle clonus: negative LEFT KNEE EXAM: Full extension Flexion limited to 90 degrees. SVEN: 21 12/01/2022: CT KNEE LT WO CONT HISTORY: Left knee pain, arthroplasty. COMPARISON: Radiographs from 12/04/2015. PROCEDURE: Routine CT of the left knee was obtained without contrast. Sagittal and coronal reformats were obtained the axial data. Automated exposure control was utilized. FINDINGS: Evaluation compromised due to artifact from the pro (more content not included)... [facility] 06-01-2023 Note Attestation signed by Arjun Miner MD at 06/03/2023 12:16 PM I saw and evaluated the patient, participating in the holloway portions of the service. I reviewed the resident???s note. I agree with the resident???s findings and plan. [place] [address] Subjective Patient ID: Elvi Moore is a 42 y.o. female. Date:06/01/23 06/01/23 06/01/23 CC: Chief Complaint Patient presents with Med Management Left Leg Pain No refills needed today Pain Assessment Pain Assessment: 0-10 Pain Score: 5 - Moderate pain Pain Type: Chronic pain Pain Location: Leg Pain Orientation: Left Pain Descriptors: Sharp, Shooting, Cramping Pain Frequency: Constant/continuous Pain Onset: Ongoing Clinical Progression: Gradually improving Aggravating Factors: Walking, Standing, Stairs Result of Injury: No Work-Related Injury: No Pain Interventions: Medication (See MAR), Cold pack, Rest Response to Interventions: SCS SUBJECTIVE: Elvi Moore is a 42 y.o. female who presents for follow up 6 days post op from a DRG placement . Patient states shes had 40% improvement in her knee pain. Pain is mainly in the front of her knee, the calf pain has significantly improved. Patient has now returned to work and has improvement in her quality of life. Pain in her back has improved but it still irritates her when the battery pack is bumped. Patient does not take per norco as often because it makes her nautious at time . She is also trying to cut down on medications. Patient states this is the most relief zohaib had since my knee started having issues. 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 Past Surgical History: Procedure Laterality Date APPENDECTOMY BARIATRIC SURGERY CHOLECYSTECTOMY CYSTOSCOPY HYSTERECTOMY INNER EAR SURGERY JOINT REPLACEMENT 06/01/22 KNEE ARTHROPLASTY Left 06/01/2022 revision KNEE ARTHROPLASTY Left 10/30/2021 KNEE SURGERY arthroscopy ORTHOPEDIC SURGERY 06/01/2022 TUBAL LIGATION UMBILICAL HERNIA REPAIR Allergies Allergen Reactions Toradol [Ketorolac] Shortness of breath and Rash Compazine [Prochlorperazine] Hallucinations Meperidine Rash Other reaction(s): Unknown Review of Systems Musculoskeletal: Pain in the anterior of the knee Objective Gen: NAD, sitting comfortably on exam table. HEENT: EOMI CVS: extremities well perfused, no peripheral cyanosis in exposed areas Lung: normal effort of breathing, no accessory muscle usage MSK: RLE strength 5/5, LLE strength exam limited secondary to pain - left knee ROM 15-90 degrees - TTP to palpation throughout left knee joint though lateral > medial Skin: no ecchymosis appreciated in exposed areas - site of incision clean and dry, not erythematous, no drainage , sutures in tact Psych: normal mood and affect Assessment/Plan Diagnosis Plan 1. Complex regional pain syndrome type 1 of left lower extremity 2. Spinal cord stimulator status The patient is a 41 year old female presenting for follow up of left knee/lower leg pain related to a history of multiple surgeries. History and physical exam most consistent with CRPS in the past . She currently has a abbot DRG implant which is working well. PLAN: 1. DRG stimulator implanted ([employer]): rep at bed side, changing settings to further optimize pain control 2. Slowly titrated down on requirment of norco 3. Medication: continue current script of norco 5/325. 4. Continue lumbar and core strengthening 5. RTC 4 [facility] 05-04-2023 Note Attestation signed by Arjun Miner MD at 05/04/2023 11:37 AM I personally saw and examined the patient on the same date of service as resident/fellow Dr Stewart. I discussed the findings and therapeutic plan with the resident/fellow Dr Stewart. I agree with the documentation, except for any edits/updates below. Teaching Physician's Revisions: S/P DRG stage 2 permanent implant with reports of > 70% pain relief of CRPS symptoms in left leg. Procedural pain improving. Incisions clean dry and intact sutures removed and steri strip applied. COT med management on fill date. RTC 4 weeks Diagnosis Plan 1. Complex regional pain syndrome type 1 of left lower extremity HYDROcodone-acetaminophen (Wade) 5-325 mg tablet 2. History of total knee arthroplasty, left 3. Morbid obesity (CMS/HCC) 4. Other chronic postprocedural pain 5. Complex regional pain syndrome type 1 of left lower extremity HYDROcodone-acetaminophen (Wade) 5-325 mg tablet chronic, uncontrolled, awaiting DRG stimulator implant 6. Presence of neurostimulator Pain Medicine Medical [address] [address] Subjective Patient ID: Elvi Moore is a 42 y.o. female. Date:05/04/23 05/04/23 05/04/23 CC: Chief Complaint Patient presents with Follow-up S/P Jackson Implant 1 week post-op. Within the first few days her knee was 70% improvement in pain relief, while her incision site is still very sore at a 25% improvement since the procedure. SUBJECTIVE: lEvi Moore is a 42 y.o. female who presents for follow up 6 days post op from a DRG placement . Patient states shes had 70% improvement in her knee pain with a majority of her pain being at the incisional site. DRG ABBOT REP at bedside to change settings to cover more of the L4 dermatome. 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 HEENT: EOMI CVS: extremities well perfused, no peripheral cyanosis in exposed areas Lung: normal effort of breathing, no accessory muscle usage MSK: RLE strength 5/5, LLE strength exam limited secondary to pain - left knee ROM 15-90 degrees - TTP to palpation throughout left knee joint though lateral > medial Gait: antalgic with use of 4-point cane Skin: no ecchymosis appreciated in exposed areas - site of incision clean and dry, not erythematous, no drainage , sutures in tact Neuro: allodynia to lateral aspect of left knee above and below joint line. Remainder of sensory testing symmetric Psych: normal mood and affect Assessment/Plan Diagnosis Plan 1. Complex regional pain syndrome type 1 of left lower extremity 2. History of total knee arthroplasty, left 3. Morbid obesity (CMS/HCC) 4. Other chronic postprocedural pain The patient is a 41 year old female presenting for follow up of left knee/lower leg pain related to a history of multiple surgeries. History and physical exam most consistent with CRPS ([place] Criteria satisfied as outlined above). She underwent left lumbar sympathetic block at L3 on 12/10/2022, which provided short-lived reduction of left leg pain to a tolerable level for about 4 days. Patient is having great relief from DRG. She is currently spacing out her Wade 5/325 every 6 hours compared to every 4 hours due to the incisional pain. Discussed chronic pain, medication use, treatment goals. Medication risk and benefits discussed. The Spine Diagram and Test results were used to explain the condition. PLAN: 1. Remove sutures today of incision site. 2. Intervention: DRG stimulator implanted (Jackson) , have patient reach out to [facility] for any further 3. Medication: continue current script of norco 5/325. Patient scheduled for a refill 05/19/2023. Patient was instructed to take more of her norco on the current script 4. Continue lumbar and core strengthening 5. RTC [facility] 04-28-2023 Note No concerns as per call back mari delines [facility] 04-28-2023 Note Patient: Elvi tilley Procedure Summary Date: 04/28/23 Room / Location: [facility] OPERATING ROOM 04 / [facility] Operating Room Anesthesia Start: 0850 Anesthesia Stop: 1121 Procedure: INSERTION, PULSE GENERATOR, SPINAL CORD STIMULATOR Diagnosis: Complex regional pain syndrome type 1 of left lower extremity (Complex regional pain syndrome type 1 of left lower extremity [G90.522]) Surgeons: Arjun Miner MD Responsible Provider: Bjorn Charles MD Anesthesia Type: general ASA Status: 3 Anesthesia Type: general Vitals Value Taken Time BP 136/91 04/28/23 1147 Temp 36.2 ???C (97.2 ???F) 04/28/23 1120 Pulse 68 04/28/23 1148 Resp 9 04/28/23 1148 SpO2 100 % 04/28/23 1148 Vitals shown include unvalidated device data. Anesthesia Post Evaluation Patient location during evaluation: PACU Patient participation: complete - patient participated Level of consciousness: awake Pain management: adequate Multimodal analgesia pain management approach Airway patency: patent Cardiovascular status: acceptable Respiratory status: acceptable Hydration status: acceptable Patient is hemodynamically stable and is able to be discharged from PACU per anesthesia protocol. No notable events documented. [facility] 04-28-2023 Note Patient: Elvi tilley Procedure Summary Date: 04/28/23 Room / Location: [facility] OPERATING ROOM 04 / [facility] Operating Room Anesthesia Start: 0850 Anesthesia Stop: Procedure: INSERTION, PULSE GENERATOR, SPINAL CORD STIMULATOR Diagnosis: Complex regional pain syndrome type 1 of left lower extremity (Complex regional pain syndrome type 1 of left lower extremity [G90.522]) Surgeons: Arjun Miner MD Responsible Provider: Bjorn Charles MD Anesthesia Type: general ASA Status: 3 Anesthesia Post Transport Note Transport to: PACU O2 Route: room air Patient Monitor: direct observation Transport: uneventful Patient condition is: stable [facility] 04-28-2023 Note Airway Date/Time: 04/28/2023 8:58 AM Urgency: elective Airway not difficult General Information and Staff Patient location during procedure: OR Anesthesiologist: Bjorn Charles MD Resident/[employer]/RL: RL Arreguin Performed: other anesthesia staff Learner assisted: Yasmin PITT Indications and Patient Condition Indications for airway management: anesthesia Spontaneous ventilation: present Sedation level: deep Preoxygenated: yes Patient position: sniffing Mask difficulty assessment: 1 - vent by mask Final Airway Details Final airway type: endotracheal airway Successful airway: ETT Cuffed: yes Successful intubation technique: direct laryngoscopy Facilitating devices/methods: intubating stylet Blade: Trista Blade size: #3 ETT size (mm): 7.5 Cormack-Lehane Classification: grade I - full view of glottis Placement verified by: chest auscultation, capnometry and palpation of cuff Measured from: lips ETT to lips (cm): 21 Number of attempts at approach: 1 Additional Comments Intubation by AA student; Dentures to Circ RN [facility] 04-28-2023 Note Patient: Elvi tilley Procedure Information Date/Time: 04/28/23 0930 Procedure: INSERTION, PULSE GENERATOR, SPINAL CORD STIMULATOR - C-Arm, Jackson REP NOTIFIED 04/21 JK Location: [facility] OPERATING ROOM 04 / [facility] Operating Room Surgeons: Arjun Miner MD Relevant Problems /Renal (+) Kidney stone Neuro/Psych (+) History of total knee arthroplasty, left (+) S/P gastric bypass (+) S/P left knee arthroscopy Other (+) Pes anserinus bursitis of left knee Clinical information reviewed: Tobacco Allergies Meds Problems Med Hx Surg Hx OB Status Fam Hx Soc Hx Physical Exam Airway Mallampati: I TM distance: >3 FB Neck ROM: full Cardiovascular - normal exam Rhythm: regular Rate: normal Dental (+) upper dentures, lower dentures Pulmonary Abdominal - normal exam Other findings: Nonsmoker; takes oxycodone-acetaminophen bid; CRPS Anesthesia Plan ASA 3 general The patient is not a current smoker. Patient was previously instructed to abstain from smoking on day of procedure. Patient did not smoke on day of procedure. intravenous induction Postoperative administration of opioids is intended. Anesthetic plan and risks discussed with patient. Plan discussed with CAA and medical student. Additional Equipment Requests [facility] 04-23-2023 Note IF YOU ARE GOING [place] AFTER YOUR SURGERY OR PROCEDURE, FOR YOUR SAFETY, YOUR SURGERY WILL BE CANCELLED IF BOTH OF THE FOLLOWING ARE NOT AVAILABLE: An adult sales warehouse driver over the age of 18, that can receive information about your care after surgery, and drive you home. A responsible adult to stay with you for 24 hours in case of an emergency. Can be same as above. The highest risk of complications is within the first 24 hours after sedation/anesthesia. Nothing to eat or drink after midnight the night before surgery. This includes gum, candy, mints, and lozenges. No alcohol, marijuana, or tobacco products including vaping for 24 hours. Please brush your teeth; don't swallow the toothpaste or water. If you use dentures, wear them but do not use paste. Please leave any other removable dental hardware at home. Do not put in contact lenses. Do not wear perfume, make-up, nail wolof, or lotions on the day of your surgery or procedure. Follow skin-prep/wipe instructions as below if required. HOLD VITAMINS, SUPPLEMENTS STARTING 04-24. TAKE PROTONIX, CARAFATE DAY OF SURGERY. Bring with you: *Insurance card *Photo ID *Medication list *Co-pay for visit/prescriptions If applicable: *Rescue inhalers *Green bracelet from lab *CPAP or BiPAP machine, if staying overnight *Any braces, splints, or equipment ordered preoperatively *Remote controls for implanted devices Leave at home: *Purse/Wallet/Mandujano- unless needed for co-pay *Cell phone (can leave with family/friend or place in locker if needed) *Jewelry (including piercings and wedding bands) *If not possible, ask the person who is waiting with you to keep them Children under the age of 12 will not be allowed into patient care areas. We will call you between 3pm and 4pm the day before your surgery to give you an arrival time. If you do not receive this call, have any questions, or need to make any changes, please call [phone]. Notify your surgeon if you develop any illness such as a cold, cough, fever, sore throat or vomiting between now and your surgery. Thank you for entrusting us with your care. [facility] Surgical Services Team [facility] 03-17-2023 Note Pain Medicine Medical [address] [address] Subjective Patient ID: Elvi Moore is a 42 y.o. female. Date:03/16/23 03/16/23 03/17/23 CC: Chief Complaint Patient presents with Follow-up Pain Assessment Pain Assessment: 0-10 Pain Score: 6 Pain Type: Chronic pain Pain Location: Leg Pain Orientation: Left Pain Descriptors: Sharp, Shooting, Cramping Pain Frequency: Constant/continuous Pain Onset: Ongoing Clinical Progression: Not changed Pain Interventions: Rest, Heat applied 42 year old female here for medication management. She states she is hopeful that she will not need medications in the future after her stimulator is placed. She states she does still need her medications at the end of the day after work. She denies any adverse side effects. Her pain is a 6/10 and constant in her left leg. Prior note: 42 year old female for scs trial and lead pull, she states she got 60-70% relief from her back pain. 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 She is happy that she got great pain relief with the trial. Her current pain level is a 4/10 and before trial she was 7/10. 42 year old female here for follow up after [employer] evaluation on 12/29 for SCS and is determined a good candidate for SCS trial. She will have DRG trial with [employer]. She states she is mainly concerned about working with the stimulator. All questions answered and went over information about trail process. She understands and is hopefully it will work to get her life back. She continues to have 7/10 pain in her left knee that is worse with activity and constant. She uses norco, along with ice and heat which helps some but does not last longer than 6 hours. SUBJECTIVE: Elvi Moore is a 42 y.o. female who presents for follow up with a chief complaint of ongoing left knee pain related to multiple surgeries. Patient was last seen 12/10/22 for left lumbar sympathetic block at L3. Reports the block brought her pain to a more tolerable level for about 4 days before the pain returned. The block seemed to improve the pain to her anterior martinez/leg more than her knee. She does not feel repeating the block is worth it for the limited duration of benefit. Currently taking Wade 5-325 mg daily which brings her pain to a tolerable level for about 6-8 hours and has also improved her sleep to about 5 hours. Also taking Amitriptyline 50 at bedtime. She utilizes Voltaren gel which provides some modest relief. Pain is made worse with activity, but she also does not want to withhold her exercises out of concern for developing stiffness/worsening pain. Today patient reports pain is 7/10. Surgeries related to pain: Previous PT: OPPT (last performed in 07/2022) Previous Injections: Left lumbar sympathetic block at L3 Failed Medications: ibuprofen Past Medical History: Diagnosis Date Arthritis Kidney stone Past Surgical History: Procedure Laterality Date APPENDECTOMY BARIATRIC SURGERY CHOLECYSTECTOMY HYSTERECTOMY KNEE ARTHROPLASTY Left 06/01/2022 revision KNEE ARTHROPLASTY Left 10/30/2021 KNEE SURGERY arthroscopy UMBILICAL HERNIA REPAIR Allergies Allergen Reactions Compazine [Prochlorperazine] Other Desonide Toradol [Ketorolac] Unknown Meperidine Rash Other reaction(s): Unknown Review of Systems Objective Gen: NAD, sitting comfortably on exam table. HEENT: EOMI CVS: extremities well perfused, no peripheral cyanosis in exposed areas Lung: normal effort of breathing, no accessory muscle usage MSK: RLE strength 5/5, LLE strength exam limited secondary to pain - left knee ROM 15-90 degrees - TTP to palpation throughout left knee joint though lateral > medial Gait: antalgic with use of 4-point cane Skin: no ecchymosis appreciated in exposed areas - left knee edema - increased warmth of left knee compared to right Neuro: allodynia to lateral aspect of left knee above and below joint line. Remainder of sensory testing symmetric Psych: normal mood and affect Clinical diagnostic criteria for complex regional pain syndrome Y 1) Continuing pain, which is disproportionate to any inciting event 2) Must report at least one symptom in three of the four following categories Y Sensory: Reports of hyperalgesia and/or allodynia Y Vasomotor: Reports of temperature asymmetry and/or skin color changes and/or skin color asymmetry Y Sudomotor/Edema: Reports of edema and/or sweating changes and/or sweating asymmetry Y Motor/Trophic: Reports of decreased range of motion and/or motor dysfunction (weakness, tremor, dystonia) and/or trophic changes (hair, nail, skin) 3) Must display at least one sign at time of evaluation in two or more of the following categories Y Sensory: Evidence of hyperalgesia (to pinprick) and/or allodynia (to light touch and/or deep somatic pressure and/or joint movement) Y (more content not included)... [facility] 03-05-2023 Note Subjective Patient ID: Elvi Moore is a 42 y.o. female. Patient called requesting refill of Wade. She underwent successful SCS-DRG trial and awaiting permanent implant PDMP reviewed and last fill on 01/31/23. Will provide 2 week rx and further refill will require office visit. Assessment/Plan Diagnoses and all orders for this visit: Complex regional pain syndrome type 1 of left lower extremity [facility] 02-18-2023 [place] [address] Subjective Patient ID: Elvi Moore is a 42 y.o. female. Date:02/18/23 02/18/23 02/18/23 CC: Chief Complaint Patient presents with Follow-up LEAD PULL Pain Assessment Pain Assessment: 0-10 Pain Score: 4 Pain Type: Chronic pain Pain Location: Knee Pain Orientation: Left Pain Descriptors: Aching Pain Frequency: Constant/continuous Pain Onset: Ongoing Clinical Progression: Gradually improving Pain Interventions: Other (Comment) (SCS TRIAL) 42 year old female for scs trial and lead pull, she states she got 60-70% relief from her back pain. 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 She is happy that she got great pain relief with the trial. Her current pain level is a 4/10 and before trial she was 7/10. 42 year old female here for follow up after [facility] evaluation on 12/29 for SCS and is determined a good candidate for SCS trial. She will have DRG trial with TESARO. She states she is mainly concerned about working with the stimulator. All questions answered and went over information about trail process. She understands and is hopefully it will work to get her life back. She continues to have 7/10 pain in her left knee that is worse with activity and constant. She uses norco, along with ice and heat which helps some but does not last longer than 6 hours. SUBJECTIVE: Elvi Moore is a 42 y.o. female who presents for follow up with a chief complaint of ongoing left knee pain related to multiple surgeries. Patient was last seen 12/10/22 for left lumbar sympathetic block at L3. Reports the block brought her pain to a more tolerable level for about 4 days before the pain returned. The block seemed to improve the pain to her anterior martinez/leg more than her knee. She does not feel repeating the block is worth it for the limited duration of benefit. Currently taking Wade 5-325 mg daily which brings her pain to a tolerable level for about 6-8 hours and has also improved her sleep to about 5 hours. Also taking Amitriptyline 50 at bedtime. She utilizes Voltaren gel which provides some modest relief. Pain is made worse with activity, but she also does not want to withhold her exercises out of concern for developing stiffness/worsening pain. Today patient reports pain is 7/10. Surgeries related to pain: Previous PT: OPPT (last performed in 07/2022) Previous Injections: Left lumbar sympathetic block at L3 Failed Medications: ibuprofen Past Medical History: Diagnosis Date Arthritis Kidney stone Past Surgical History: Procedure Laterality Date APPENDECTOMY BARIATRIC SURGERY CHOLECYSTECTOMY HYSTERECTOMY KNEE ARTHROPLASTY Left 06/01/2022 revision KNEE ARTHROPLASTY Left 10/30/2021 KNEE SURGERY arthroscopy UMBILICAL HERNIA REPAIR Allergies Allergen Reactions Compazine [Prochlorperazine] Other Desonide Toradol [Ketorolac] Unknown Meperidine Rash Review of Systems Objective Gen: NAD, sitting comfortably on exam table. HEENT: EOMI CVS: extremities well perfused, no peripheral cyanosis in exposed areas Lung: normal effort of breathing, no accessory muscle usage MSK: RLE strength 5/5, LLE strength exam limited secondary to pain - left knee ROM 15-90 degrees - TTP to palpation throughout left knee joint though lateral > medial Gait: antalgic with use of 4-point cane Skin: no ecchymosis appreciated in exposed areas - left knee edema - increased warmth of left knee compared to right Neuro: allodynia to lateral aspect of left knee above and below joint line. Remainder of sensory testing symmetric Psych: normal mood and affect Clinical diagnostic criteria for complex regional pain syndrome Y 1) Continuing pain, which is disproportionate to any inciting event 2) Must report at least one symptom in three of the four following categories Y Sensory: Reports of hyperalgesia and/or allodynia Y Vasomotor: Reports of temperature asymmetry and/or skin color changes and/or skin color asymmetry Y Sudomotor/Edema: Reports of edema and/or sweating changes and/or sweating asymmetry Y Motor/Trophic: Reports of decreased range of motion and/or motor dysfunction (weakness, tremor, dystonia) and/or trophic changes (hair, nail, skin) 3) Must display at least one sign at time of evaluation in two or more of the following categories Y Sensory: Evidence of hyperalgesia (to pinprick) and/or allodynia (to light touch and/or deep somatic pressure and/or joint movement) Y Vasomotor: Evidence of temperature asymmetry and/or skin color changes and/or asymmetry Y Sudomotor/Edema: Evidence of edema and/or sweating changes and/or sweating asymmetry Y Motor/Trophic: Evidence of decreased range of motion and/or motor dysfunction (weakness, tremor, dystonia) and/or trophic changes (hair, nail, skin) Y 4) There is no other diagn (more content not included)... [facility] 02-11-2023 Note Patient: Elvi tilley Pre-sedation Evaluation: Sedation necessary for: Immobility, Analgesia, and Anxiety Requesting service: PM History of Present Illness: Here with CRPS of Left LE for SCS DRG trial Past Medical History: Diagnosis Date Arthritis Kidney stone Principle problems: Patient Active Problem List Diagnosis Date Noted History of total knee arthroplasty, left 12/25/2022 Anxiety 07/12/2022 Artificial knee joint present 07/12/2022 Chronic pain 07/12/2022 Depressive disorder 07/12/2022 Follow-up examination following treatment with high-risk medication 07/12/2022 Internal derangement of left knee 07/12/2022 Left flank pain 07/12/2022 Morbid obesity (CMS/HCC) 07/12/2022 Osteoarthritis of knee 07/12/2022 Pain in left arm 07/12/2022 Right medial knee pain 07/12/2022 Pain of left calf 07/12/2022 Pes anserinus bursitis of left knee 07/12/2022 Radial styloid tenosynovitis 07/12/2022 S/P left knee arthroscopy 07/12/2022 Inverted nipple 01/08/2021 Nipple discharge 01/08/2021 Other specified postprocedural states 01/08/2021 Pain of right breast 01/08/2021 Abdominal pain 09/06/2019 Acute lower urinary tract infection 09/16/2018 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 cyanocobalamin, vitamin B-12, 1,000 mcg/mL kit Inject as directed every 30 (thirty) days. diclofenac (Voltaren) 1 % topical gel apply 4 grams to affected area ferrous sulfate 325 (65 Fe) MG tablet every 12 (twelve) hours. HYDROcodone-acetaminophen (Wade) 5-325 mg tablet Take 1 tablet by mouth every 12 (twelve) hours if needed for severe pain (8-10 pain score). Do not start before January 31, 2023. 60 tablet 0 multivitamin (Theragran-M) 9 mg iron-400 mcg tablet Take 1 tablet by mouth in the morning. ondansetron ODT (Zofran-ODT) 4 mg disintegrating tablet ondansetron 4 mg disintegrating tablet pantoprazole (ProtoNix) 40 mg EC tablet Take 40 mg by mouth. promethazine (Phenergan) 25 mg suppository Insert into the rectum. tiZANidine (Zanaflex) 4 mg tablet if needed. Current Facility-Administered Medications Medication Dose Route Frequency Provider Last Rate Last Admin HYDROmorphone (Dilaudid) injection PRN Arjun Miner MD 1 mg at 02/11/23 1118 ondansetron (Zofran) injection intravenous PRN Arjun Miner MD 4 mg at 02/11/23 1013 Past Surgical History: has a past surgical history that includes Appendectomy; Bariatric Surgery; Cholecystectomy; Hysterectomy; Knee surgery; Umbilical hernia repair; Knee Arthroplasty (Left, 06/01/2022); and Knee Arthroplasty (Left, 10/30/2021). Recent sedation/surgery (24 hours) No NPO guidelines met: Yes Physical Exam Airway Mallampati: II TM distance: >3 FB Neck ROM: full Cardiovascular Rhythm: regular Rate: normal Dental Pulmonary - normal exam Plan ASA 2 Mild [facility] 01-08-2023 Note [place] [address] Subjective Patient ID: Elvi Moore is a 42 y.o. female. Date:01/08/23 01/08/23 CC: Chief Complaint Patient presents with Follow-up Discuss SCS next steps Pain Assessment Pain Assessment: 0-10 Pain Score: 7 Pain Type: Chronic pain Pain Location: Knee Pain Orientation: Left Pain Radiating Towards: down front of leg Pain Descriptors: Sharp, Stabbing, Aching, Cramping, Throbbing, Burning, Numbness (numbness in foot when sitting for too long) Pain Frequency: Constant/continuous Interference on Function: ADL's, standing for too long and walking too long Pain Onset: Ongoing Clinical Progression: Not changed Aggravating Factors: Bending, Exercise, Kneeling, Squatting, Stairs, Standing, Straightening, Stretching, Walking Result of Injury: No (surgery) Work-Related Injury: No Pain Interventions: Medication (See MAR), Heat applied, Cold applied (Wade and tylenol) Response to Interventions: Wade works for about 6 hours, ice and heat do not help 42 year old female here for follow up after [facility] evaluation on 12/29 for SCS and is determined a good candidate for SCS trial. She will have DRG trial with TESAR[facility]. She states she is mainly concerned about working with the stimulator. All questions answered and went over information about trail process. She understands and is hopefully it will work to get her life back. She continues to have 7/10 pain in her left knee that is worse with activity and constant. She uses norco, along with ice and heat which helps some but does not last longer than 6 hours. SUBJECTIVE: Elvi Moore is a 42 y.o. female who presents for follow up with a chief complaint of ongoing left knee pain related to multiple surgeries. Patient was last seen 12/10/22 for left lumbar sympathetic block at L3. Reports the block brought her pain to a more tolerable level for about 4 days before the pain returned. The block seemed to improve the pain to her anterior martinez/leg more than her knee. She does not feel repeating the block is worth it for the limited duration of benefit. Currently taking Wade 5-325 mg daily which brings her pain to a tolerable level for about 6-8 hours and has also improved her sleep to about 5 hours. Also taking Amitriptyline 50 at bedtime. She utilizes Voltaren gel which provides some modest relief. Pain is made worse with activity, but she also does not want to withhold her exercises out of concern for developing stiffness/worsening pain. Today patient reports pain is 7/10. Surgeries related to pain: Previous PT: OPPT (last performed in 07/2022) Previous Injections: Left lumbar sympathetic block at L3 Failed Medications: ibuprofen Past Medical History: Diagnosis Date Arthritis Kidney stone Past Surgical History: Procedure Laterality Date APPENDECTOMY BARIATRIC SURGERY CHOLECYSTECTOMY HYSTERECTOMY KNEE ARTHROPLASTY Left 06/01/2022 revision KNEE ARTHROPLASTY Left 10/30/2021 KNEE SURGERY arthroscopy UMBILICAL HERNIA REPAIR Allergies Allergen Reactions Desonide Toradol [Ketorolac] Unknown Meperidine Rash Review of Systems Objective Gen: NAD, sitting comfortably on exam table. HEENT: EOMI CVS: extremities well perfused, no peripheral cyanosis in exposed areas Lung: normal effort of breathing, no accessory muscle usage MSK: RLE strength 5/5, LLE strength exam limited secondary to pain - left knee ROM 15-90 degrees - TTP to palpation throughout left knee joint though lateral > medial Gait: antalgic with use of 4-point cane Skin: no ecchymosis appreciated in exposed areas - left knee edema - increased warmth of left knee compared to right Neuro: allodynia to lateral aspect of left knee above and below joint line. Remainder of sensory testing symmetric Psych: normal mood and affect Clinical diagnostic criteria for complex regional pain syndrome Y 1) Continuing pain, which is disproportionate to any inciting event 2) Must report at least one symptom in three of the four following categories Y Sensory: Reports of hyperalgesia and/or allodynia Y Vasomotor: Reports of temperature asymmetry and/or skin color changes and/or skin color asymmetry Y Sudomotor/Edema: Reports of edema and/or sweating changes and/or sweating asymmetry Y Motor/Trophic: Reports of decreased range of motion and/or motor dysfunction (weakness, tremor, dystonia) and/or trophic changes (hair, nail, skin) 3) Must display at least one sign at time of evaluation in two or more of the following categories Y Sensory: Evidence of hyperalgesia (to pinprick) and/or allodynia (to light touch and/or deep somatic pressure and/or joint movement) Y Vasomotor: Evidence of temperature asymmetry and/or skin color changes and/or asymmetry Y Sudomotor/Edema: Evidence of edema and/or sweating changes and/or sweating asymmetry Y Motor/Trop (more content not included)... [facility] 01-04-2023 Hospital Discharge instructions Patient Education 01/04/2023 08:39:16 Dietary Guidelines to Help Prevent Kidney Stones Dietary Guidelines to Help Prevent Kidney Stones Kidney stones are deposits of minerals and salts that form inside your kidneys. Your risk of developing kidney stones may be greater depending on your diet, your lifestyle, the medicines you take, and whether you have certain medical conditions. Most people can reduce their chances of developing kidney stones by following the instructions below. Depending on your overall health and the type of kidney stones you tend to develop, your dietitian may give you more specific instructions. What are tips for following this plan? Reading food labels Choose foods with no salt added or low-salt labels. Limit your sodium intake to less than 1500 mg per day. Choose foods with calcium for each meal and snack. Try to eat about 300 mg of calcium at each meal. Foods that contain 200 500 mg of calcium per serving include: ?8 oz (237 ml) of milk, fortified nondairy milk, and fortified fruit juice. ?8 oz (237 ml) of kefir, yogurt, and soy yogurt. ?4 oz (118 ml) of tofu. ?1 oz of cheese. ?1 cup (300 g) of dried figs. ?1 cup (91 g) of cooked broccoli. ?1 3 oz can of sardines or mackerel. Most people need 1000 to 1500 mg of calcium each day. Talk to your dietitian about how much calcium is recommended for you. Shopping Buy plenty of fresh fruits and vegetables. Most people do not need to avoid fruits and vegetables, even if they contain nutrients that may contribute to kidney stones. When shopping for convenience foods, choose: ?Whole pieces of fruit. ?Premade salads with dressing on the side. ?Low-fat fruit and yogurt smoothies. Avoid buying frozen meals or prepared deli foods. Look for foods with live cultures, such as yogurt and kefir. Cooking Do not add salt to food when cooking. Place a salt shaker on the table and allow each person to add his or her own salt to taste. Use vegetable protein, such as beans, textured vegetable protein (TVP), or tofu instead of meat in pasta, casseroles, and soups. Meal planning Eat less salt, if told by your dietitian. To do this: ?Avoid eating processed or premade food. ?Avoid eating fast food. Eat less animal protein, including cheese, meat, poultry, or fish, if told by your dietitian. To do this: ?Limit the number of times you have meat, poultry, fish, or cheese each week. Eat a diet free of meat at least 2 days a week. ?Eat only one serving each day of meat, poultry, fish, or seafood. ?When you prepare animal protein, cut pieces into small portion sizes. For most meat and fish, one serving is about the size of one deck of cards. Eat at least 5 servings of fresh fruits and vegetables each day. To do this: ?Keep fruits and vegetables on hand for snacks. ?Eat 1 piece of fruit or a handful of berries with breakfast. ?Have a salad and fruit at lunch. ?Have two kinds of vegetables at dinner. Limit foods that are high in a substance called oxalate. These include: ?Spinach. ?Rhubarb. ?Beets. ?Potato chips and pakistani fries. ?Nuts. If you regularly take a diuretic medicine, make sure to eat at least 1 2 fruits or vegetables high in potassium each day. These include: ?Avocado. ?Banana. ?[place], prune, carrot, or tomato juice. ?Baked potato. ?Cabbage. ?Beans and split peas. General instructions Drink enough fluid to keep your urine clear or pale yellow. This is the most important thing you can do. Talk to your health care provider and dietitian about taking daily supplements. Depending on your health and the cause of your kidney stones, you may be advised: ?Not to take supplements with vitamin C. ?To take a calcium supplement. ?To take a daily probiotic supplement. ?To take other supplements such as magnesium, fish oil, or vitamin B6. Take all medicines and supplements as told by your health care provider. Limit alcohol intake to no more than 1 drink a day for non women and 2 drinks a day for men. One drink equals 12 oz of beer, 5 oz of wine, or 1 oz of hard liquor. Lose weight if told by your health care provider. Work with your dietitian to find strategies and an eating plan that works best for you. What foods are not recommended? Limit your intake of the following foods, or as told by your dietitian. Talk to your dietitian about specific foods you should avoid based on the type of kidney stones and your overall health. Grains Breads. Bagels. Rolls. Baked goods. Salted crackers. Cereal. Pasta. Vegetables Spinach. Rhubarb. Beets. Canned vegetables. Pickles. Olives. Meats and other protein foods Nuts. Nut butters. Large portions of meat, poultry, or fish. Salted or cured meats. Deli meats. Hot dogs. Sausages. Dairy Cheese. Beverages Regular soft drinks. Regular vegetable juice. Seasonings and other foods Seasoning blends with salt. Salad dressings. Canned soups. Soy sauce. Ketchup. Barbecue sauce. Canned pasta sauce. Casseroles. Pizza. Lasagna. Frozen meals. Potato chips. Hebrew fries. Summary You can reduce your risk of kidney stones by making changes to your diet. The most important thing you can do is drink enough fluid. You should drink enough fluid to keep your urine clear or pale yellow. Ask your health care provider or dietitian how much protein from animal sources you should eat each day, and also how much salt and calcium you should have each day. This information is not intended to replace advice given to you by your health care provider. Make sure you discuss any questions you have with your health care provider. Document Released: 01/22/2012 Document Revised: 01/17/2020 Document Reviewed: 09/07/2017 Pixelated Patient Education 2020 [employer]. Follow Up Care 10/29/2022 14:23:18 With:ROSS GENTILE, Diana Goss, URL Address: [facility] [address] [place] [id number]- When: Unknown [facility] 12-24-2022 Note Attestation signed by Arjun Miner MD at 12/25/2022 1:06 PM I personally saw and examined the patient on the same date of service as resident/fellow Tuyet. I discussed the findings and therapeutic plan with the resident/fellow Tuyet. I agree with the documentation, except for any edits/updates below. Teaching Physician's Revisions: Diagnosis Plan 1. Complex regional pain syndrome type 1 affecting left lower leg Ambulatory referral to Psychology chronic worsening uncontrolled. Plan for SCS trial pending psych eval 2. Other chronic postprocedural pain chronic worsening uncontrolled 3. History of total knee arthroplasty, left persistent post operative neuropathic pain uncontrolled. SPINAL CORD STIMULATOR (SCS): Patient has intractable pain and fulfilled ALL of the followin. Failed six months of conservative treatment modalities (pharmacologic, surgical, psychologic or physical), if appropriate and not contraindicated. 2. Further surgical intervention is not indicated. 3. Psychological evaluation will be obtained with documentation clearly stating the patient is an appropriate candidate for SCS from a mental health perspective. 4. No contraindications to implantation exist such as sepsis or coagulopathy. 5. There are objective findings of pathology based on examination and/or imaging. 6. We had an extensive discussion with the patient about the SCS device, including the trial and implantation processes. We plan to have a percutaneous SCS trial. The trial will last for approximately 7 days. A SCS trial is successful if: 50% or more reduction in pain for at least two days; and improvement in functional status of the patient. If a successful trial, the permanent electrodes are placed at the same levels where the trial produced [place] [address] Subjective Patient ID: Elvi Moore is a 41 y.o. female. Date:12/24/22 12/24/22 CC: Chief Complaint Patient presents with Follow-up S/P sympathetic nerve block it helped a couple of days brought pain level down a little before procedure pain was 7 after procedure pain was 5 or 6. The injection did help the pain for a couple days. SUBJECTIVE: Elvi Moore is a 41 y.o. female who presents for follow up with a chief complaint of ongoing left knee pain related to multiple surgeries. Patient was last seen 12/10/22 for left lumbar sympathetic block at L3. Reports the block brought her pain to a more tolerable level for about 4 days before the pain returned. The block seemed to improve the pain to her anterior martinez/leg more than her knee. She does not feel repeating the block is worth it for the limited duration of benefit. Currently taking Wade 5-325 mg daily which brings her pain to a tolerable level for about 6-8 hours and has also improved her sleep to about 5 hours. Also taking Amitriptyline 50 at bedtime. She utilizes Voltaren gel which provides some modest relief. Pain is made worse with activity, but she also does not want to withhold her exercises out of concern for developing stiffness/worsening pain. Today patient reports pain is 7/10. Pain Assessment Pain Assessment: 0-10 Pain Score: 7 Pain Type: Chronic pain Pain Location: Knee Pain Orientation: Left Pain Descriptors: Aching, Cramping, Throbbing, Shooting Pain Frequency: Constant/continuous Pain Onset: Ongoing Clinical Progression: Not changed Aggravating Factors: Walking, Bending, Exercise, Kneeling, Standing, Squatting, Stairs, Other (Comment) (Getting up from sitting depending on how low the seat is) Result of Injury: No Work-Related Injury: No Pain Interventions: Medication (See MAR), Heat applied, Cold pack Response to Interventions: sympathetic nerve block Surgeries related to pain: Previous PT: OPPT (last performed in 07/2022) Previous Injections: Left lumbar sympathetic block at L3 Failed Medications: ibuprofen Past Medical History: Diagnosis Date Arthritis Kidney stone Past Surgical History: Procedure Laterality Date APPENDECTOMY BARIATRIC SURGERY CHOLECYSTECTOMY HYSTERECTOMY KNEE ARTHROPLASTY Left 06/01/2022 revision KNEE ARTHROPLASTY Left 10/30/2021 KNEE SURGERY arthroscopy UMBILICAL HERNIA REPAIR Allergies Allergen Reactions Desonide Toradol [Ketorolac] Unknown Meperidine Rash Review of Systems Objective Gen: NAD, sitting comfortably on exam table. HEENT: EOMI CVS: extremities well perfused, no peripheral cyanosis in exposed areas Lung: normal effort of breathing, no accessory muscle usage MSK: RLE strength 5/5, LLE strength exam limited secondary to pain - left knee ROM 15-90 degrees - TTP to palpation throughout left knee joint though lateral > media (more content not included)... [facility] 12-11-2022 Note Post call Pt states the stabbing pain 10/10 is somewhat better now a 6. Feels like cramping pain. Reminded of follow up in clinic. [facility] 11-24-2022 Note History Referral Source: [facility] Orthopedics 11/25/22 CC: Chief Complaint Patient presents with Follow-up New Patient Knee pain, left s/p replacement May 2022 and November 01, Pain Assessment Pain Assessment: 0-10 Pain Score: 7 Pain Type: Chronic pain Pain Location: Knee Pain Orientation: Left Pain Radiating Towards: radiates down leg Pain Descriptors: Aching, Jabbing, Shooting, Cramping, Sharp, Radiating, Throbbing, Stabbing, Numbness, Other (Comment) (weakness) Pain Frequency: Constant/continuous Pain Onset: Ongoing Clinical Progression: Gradually worsening Aggravating Factors: Walking, Standing, Stairs, Bending, Exercise, Kneeling, Squatting Result of Injury: No Work-Related Injury: No Pain Interventions: Home medication, Cold applied, Heat applied This patient is a 41-year-old female presents to clinic today to establish care for persistent, ongoing left knee pain. Patient is noted to have significant history of left knee pathology and subsequent surgeries. She is noted to have undergone 3 arthroscopic procedures as well as left TKA by Dr. Lane in 10/30/2021. Patient is noted to have limited range of motion in the months following her surgery and underwent manipulation under anesthesia on 02/12/2022. On 06/01/2022 she underwent left TKA revision. Patient reports initial pain relief following 05/2022 surgery. Reports soreness but gradual improvement in pain. Reports Covid in 09/2022 which resulted in significant pain thereafter. Patient has completed outpatient physical therapy he continues home exercise program at present. She is currently taking Tylenol for pain. She is history of Josefa-en-Y bypass and was told to avoid NSAIDs. Despite this she has tried ibuprofen for a few doses and reports significant upset stomach and is since discontinued. Patient reports persistent left knee pains which are described as sharp and aching character but also cramping which extends to the left martinez. She reports sensory abnormalities along the lateral aspect of the left knee as compared to the right. She reports persistent swelling and some weakness in the left knee as opposed to the right. Patient is currently utilizing a four-point cane for community ambulation. She has undergone left knee aspiration which was unremarkable. 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 Past History of Treatments: Patient has tried other professional care of: OPPT (last performed in 07/2022) Trialed medications: Ibuprofen Current Medications for Associated Pain: Wade 5/325, Amitriptyline 50 qhs Current Outpatient Medications Medication Sig Dispense Refill calcium carbonate 600 mg calcium (1,500 mg) tablet 300 mg. cyanocobalamin, vitamin B-12, 1,000 mcg/mL kit Inject as directed every 30 (thirty) days. diclofenac (Voltaren) 1 % topical gel apply 4 grams to affected area ferrous sulfate 325 (65 Fe) MG tablet every 12 (twelve) hours. multivitamin (Theragran-M) 9 mg iron-400 mcg tablet Take 1 tablet by mouth in the morning. ondansetron ODT (Zofran-ODT) 4 mg disintegrating tablet ondansetron 4 mg disintegrating tablet pantoprazole (ProtoNix) 40 mg EC tablet Take 40 mg by mouth. promethazine (Phenergan) 25 mg suppository Insert into the rectum. tiZANidine (Zanaflex) 4 mg tablet if needed. acyclovir (Zovirax) 5 % ointment acyclovir 5 % topical ointment amitriptyline (Elavil) 25 mg tablet Take 50 mg by mouth. aspirin 325 mg tablet aspirin 325 mg tablet TAKE ONE TABLET BY MOUTH TWICE DAILY chlordiazepoxide-clidinium (Librax) 5-2.5 mg capsule chlordiazepoxide-clidinium 5 mg-2.5 mg capsule cyclobenzaprine (Flexeril) 10 mg tablet cyclobenzaprine 10 mg tablet dexAMETHasone (Decadron) 6 mg tablet Take 6 mg by mouth. dicyclomine (Bentyl) 20 mg tablet Take 20 mg by mouth. docusate sodium (Colace) 100 mg capsule docusate sodium 100 mg capsule TAKE ONE CAPSULE BY MOUTH TWICE DAILY fluconazole (Diflucan) 100 mg tablet fluconazole 100 mg tablet hyoscyamine 0.125 mg dissolvable tablet hyoscyamine 0.125 mg sublingual tablet lidocaine (Lidoderm) 5 % patch Place 1 patch on the skin if needed each day. nirmatrelvir-ritonavir (Paxlovid, EUA,) 150-100 mg tablets,dose pack Take 2 tablets by mouth twice a day. nystatin (Mycostatin) 100,000 unit/mL suspension nystatin 100,000 unit/mL oral suspension phenazopyridine (Pyridium) 100 mg tablet Take 100 mg by mouth if needed in the morning, at noon, and at bedtime. polyethylene glycol (Glycolax) 17 gram/dose powder polyethylene glycol 3350 17 gram/dose oral powder DISSOLVE 1 CAPFUL (17 GM) IN 8 OZ JUICE OR WATER AND DRINK ONCE A DAY NEEDED FOR CONSTIPATION. DO NOT USE FOR MORE THAN 2 WEEKS tamsulosin (Flomax) 0.4 mg 24 hr capsule tamsulosin 0.4 mg capsule No current facility-administered medications for this visit. Procedures performed previously: 06/01/22 Left TKA (more content not included)... [facility] 11-24-2022 Note History Referral Source: [facility] Orthopedics 11/25/22 CC: Chief Complaint Patient presents with Follow-up New Patient Knee pain, left s/p replacement May 2022 and November 01, Pain Assessment Pain Assessment: 0-10 Pain Score: 7 Pain Type: Chronic pain Pain Location: Knee Pain Orientation: Left Pain Radiating Towards: radiates down leg Pain Descriptors: Aching, Jabbing, Shooting, Cramping, Sharp, Radiating, Throbbing, Stabbing, Numbness, Other (Comment) (weakness) Pain Frequency: Constant/continuous Pain Onset: Ongoing Clinical Progression: Gradually worsening Aggravating Factors: Walking, Standing, Stairs, Bending, Exercise, Kneeling, Squatting Result of Injury: No Work-Related Injury: No Pain Interventions: Home medication, Cold applied, Heat applied This patient is a 41-year-old female presents to clinic today to establish care for persistent, ongoing left knee pain. Patient is noted to have significant history of left knee pathology and subsequent surgeries. She is noted to have undergone 3 arthroscopic procedures as well as left TKA by Dr. Lane in 10/30/2021. Patient is noted to have limited range of motion in the months following her surgery and underwent manipulation under anesthesia on 02/12/2022. On 06/01/2022 she underwent left TKA revision. Patient reports initial pain relief following 05/2022 surgery. Reports soreness but gradual improvement in pain. Reports Covid in 09/2022 which resulted in significant pain thereafter. Patient has completed outpatient physical therapy he continues home exercise program at present. She is currently taking Tylenol for pain. She is history of Josefa-en-Y bypass and was told to avoid NSAIDs. Despite this she has tried ibuprofen for a few doses and reports significant upset stomach and is since discontinued. Patient reports persistent left knee pains which are described as sharp and aching character but also cramping which extends to the left martinez. She reports sensory abnormalities along the lateral aspect of the left knee as compared to the right. She reports persistent swelling and some weakness in the left knee as opposed to the right. Patient is currently utilizing a four-point cane for community ambulation. She has undergone left knee aspiration which was unremarkable. 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 Past History of Treatments: Patient has tried other professional care of: OPPT (last performed in 07/2022) Trialed medications: Ibuprofen Current Medications for Associated Pain: Wade 5/325, Amitriptyline 50 qhs Current Outpatient Medications Medication Sig Dispense Refill calcium carbonate 600 mg calcium (1,500 mg) tablet 300 mg. cyanocobalamin, vitamin B-12, 1,000 mcg/mL kit Inject as directed every 30 (thirty) days. diclofenac (Voltaren) 1 % topical gel apply 4 grams to affected area ferrous sulfate 325 (65 Fe) MG tablet every 12 (twelve) hours. multivitamin (Theragran-M) 9 mg iron-400 mcg tablet Take 1 tablet by mouth in the morning. ondansetron ODT (Zofran-ODT) 4 mg disintegrating tablet ondansetron 4 mg disintegrating tablet pantoprazole (ProtoNix) 40 mg EC tablet Take 40 mg by mouth. promethazine (Phenergan) 25 mg suppository Insert into the rectum. tiZANidine (Zanaflex) 4 mg tablet if needed. acyclovir (Zovirax) 5 % ointment acyclovir 5 % topical ointment amitriptyline (Elavil) 25 mg tablet Take 50 mg by mouth. aspirin 325 mg tablet aspirin 325 mg tablet TAKE ONE TABLET BY MOUTH TWICE DAILY chlordiazepoxide-clidinium (Librax) 5-2.5 mg capsule chlordiazepoxide-clidinium 5 mg-2.5 mg capsule cyclobenzaprine (Flexeril) 10 mg tablet cyclobenzaprine 10 mg tablet dexAMETHasone (Decadron) 6 mg tablet Take 6 mg by mouth. dicyclomine (Bentyl) 20 mg tablet Take 20 mg by mouth. docusate sodium (Colace) 100 mg capsule docusate sodium 100 mg capsule TAKE ONE CAPSULE BY MOUTH TWICE DAILY fluconazole (Diflucan) 100 mg tablet fluconazole 100 mg tablet hyoscyamine 0.125 mg dissolvable tablet hyoscyamine 0.125 mg sublingual tablet lidocaine (Lidoderm) 5 % patch Place 1 patch on the skin if needed each day. nirmatrelvir-ritonavir (Paxlovid, EUA,) 150-100 mg tablets,dose pack Take 2 tablets by mouth twice a day. nystatin (Mycostatin) 100,000 unit/mL suspension nystatin 100,000 unit/mL oral suspension phenazopyridine (Pyridium) 100 mg tablet Take 100 mg by mouth if needed in the morning, at noon, and at bedtime. polyethylene glycol (Glycolax) 17 gram/dose powder polyethylene glycol 3350 17 gram/dose oral powder DISSOLVE 1 CAPFUL (17 GM) IN 8 OZ JUICE OR WATER AND DRINK ONCE A DAY NEEDED FOR CONSTIPATION. DO NOT USE FOR MORE THAN 2 WEEKS tamsulosin (Flomax) 0.4 mg 24 hr capsule tamsulosin 0.4 mg capsule No current facility-administered medications for this visit. Procedures performed previously: 06/01/22 Left TKA (more content not included)... [facility] 11-20-2022 Note Orthopaedic Surgery Outpatient Visit Note Encounter Date: 11/20/2022 Patient: Elvi Moore 1980 PCP Arleth Acharya MD CC: Chief Complaint Patient presents with Left Knee - Follow-up, Pain HPI: Elvi Moore is a 41 y.o. female here for a follow up on the left knee revision that was performed on 06/01/[address]. Patient continues to demonstrate continued pain through the left knee which has been rated as around an 8 out of 10. Patient has had a negative aspiration as well as a negative US of the left leg and previous x rays showed satisfactory placement. She is walking primarily with the cane and she is afebrile. Past Medical History: Past Medical History: Diagnosis Date Arthritis Kidney stone Past Surgical History: Procedure Laterality Date APPENDECTOMY BARIATRIC SURGERY CHOLECYSTECTOMY HYSTERECTOMY KNEE ARTHROPLASTY Left 06/01/2022 revision KNEE ARTHROPLASTY Left 10/30/2021 KNEE SURGERY arthroscopy UMBILICAL HERNIA REPAIR Medications: Current Outpatient Medications: acyclovir (Zovirax) 5 % ointment, acyclovir 5 % topical ointment, Disp: , Rfl: amitriptyline (Elavil) 25 mg tablet, Take 50 mg by mouth., Disp: , Rfl: aspirin 325 mg tablet, aspirin 325 mg tablet TAKE ONE TABLET BY MOUTH TWICE DAILY, Disp: , Rfl: calcium carbonate 600 mg calcium (1,500 mg) tablet, 300 mg., Disp: , Rfl: chlordiazepoxide-clidinium (Librax) 5-2.5 mg capsule, chlordiazepoxide-clidinium 5 mg-2.5 mg capsule, Disp: , Rfl: cyanocobalamin, vitamin B-12, 1,000 mcg/mL kit, Inject as directed every 30 (thirty) days., Disp: , Rfl: cyclobenzaprine (Flexeril) 10 mg tablet, cyclobenzaprine 10 mg tablet, Disp: , Rfl: dexAMETHasone (Decadron) 6 mg tablet, Take 6 mg by mouth., Disp: , Rfl: diclofenac (Voltaren) 1 % topical gel, apply 4 grams to affected area, Disp: , Rfl: dicyclomine (Bentyl) 20 mg tablet, Take 20 mg by mouth., Disp: , Rfl: docusate sodium (Colace) 100 mg capsule, docusate sodium 100 mg capsule TAKE ONE CAPSULE BY MOUTH TWICE DAILY, Disp: , Rfl: ferrous sulfate 325 (65 Fe) MG tablet, every 12 (twelve) hours., Disp: , Rfl: fluconazole (Diflucan) 100 mg tablet, fluconazole 100 mg tablet, Disp: , Rfl: hyoscyamine 0.125 mg dissolvable tablet, hyoscyamine 0.125 mg sublingual tablet, Disp: , Rfl: lidocaine (Lidoderm) 5 % patch, Place 1 patch on the skin if needed each day., Disp: , Rfl: multivitamin (Theragran-M) 9 mg iron-400 mcg tablet, Take 1 tablet by mouth in the morning., Disp: , Rfl: nirmatrelvir-ritonavir (Paxlovid, EUA,) 150-100 mg tablets,dose pack, Take 2 tablets by mouth twice a day., Disp: , Rfl: nystatin (Mycostatin) 100,000 unit/mL suspension, nystatin 100,000 unit/mL oral suspension, Disp: , Rfl: ondansetron ODT (Zofran-ODT) 4 mg disintegrating tablet, ondansetron 4 mg disintegrating tablet, Disp: , Rfl: pantoprazole (ProtoNix) 40 mg EC tablet, Take 40 mg by mouth., Disp: , Rfl: phenazopyridine (Pyridium) 100 mg tablet, Take 100 mg by mouth if needed in the morning, at noon, and at bedtime., Disp: , Rfl: polyethylene glycol (Glycolax) 17 gram/dose powder, polyethylene glycol 3350 17 gram/dose oral powder DISSOLVE 1 CAPFUL (17 GM) IN 8 OZ JUICE OR WATER AND DRINK ONCE A DAY NEEDED FOR CONSTIPATION. DO NOT USE FOR MORE THAN 2 WEEKS, Disp: , Rfl: promethazine (Phenergan) 25 mg suppository, Insert into the rectum., Disp: , Rfl: tamsulosin (Flomax) 0.4 mg 24 hr capsule, tamsulosin 0.4 mg capsule, Disp: , Rfl: tiZANidine (Zanaflex) 4 mg tablet, if needed., Disp: , Rfl: Allergies and adverse reactions: Allergies Allergen Reactions Desonide Toradol [Ketorolac] Unknown Meperidine Rash Social History: Social History Socioeconomic History Marital status: Spouse name: Not on file Number of children: Not on file Years of education: Not on file Highest education level: Not on file Occupational History Not on file Tobacco Use Smoking status: Former Types: Cigarettes Start date: 12/18/1997 Quit date: 01/19/2017 Years since quittin.8 Passive exposure: Current Smokeless tobacco: Never Vaping Use Vaping Use: Never used Substance and Sexual Activity Alcohol use: Never Drug use: Yes Types: Hydrocodone Sexual activity: Yes Partners: Male control/protection: Surgical Other Topics Concern Not on file Social History Narrative Not on file Social Determinants of Health Financial Resource Strain: Medium Risk Difficulty of Paying Living Expenses: Somewhat hard Food Insecurity: No Food Insecurity Worried About Running Out of Food in the Last Year: Never true Ran Out of Food in the Last Year: Never true Transportation Needs: No Transportation Needs Lack of Transportation (Medical): No Lack of Transportation (Non-Medical): No Physical Activity: Insufficiently Active Days of Exercise per Week: 1 day Minutes of Exercise per Session: 20 min Stress: No Stress Concern Presen (more content not included)... [facility] 11-19-2022 Note Please schedule an a ppointment for her for evaluation of the knee tomorrow afternoon. [facility] 11-13-2022 Note Talked with patient about her current situation with her knee. Discussed cultures and after discussion with Dr. Lane we will give her a referral to pain management. [facility] 11-05-2022 Note Spoke with lab and new order was placed. [facility] 11-03-2022 Note Orthopaedic Surgery Outpatient Visit Note Encounter Date: 11/03/2022 Patient: Elvi Moore 1980 PCP Arleth Acharya MD CC: Chief Complaint Patient presents with ??? Left Knee - Pain HPI: Elvi Moore is a 41 y.o. female. Left knee pain, worsening. Tried an aspiration recently without fluid removed. Knee was doing ok for the first few months post-op. However, she had COVID late last year, and since that time, the knee has stiffened up and is much more painful. Using a cane for mobilization now. Past Medical History: Past Medical History: Diagnosis Date ??? Arthritis ??? Kidney stone Past Surgical History: Procedure Laterality Date ??? APPENDECTOMY ??? BARIATRIC SURGERY ??? CHOLECYSTECTOMY ??? HYSTERECTOMY ??? KNEE ARTHROPLASTY Left 06/01/2022 revision ??? KNEE ARTHROPLASTY Left 10/30/2021 ??? KNEE SURGERY arthroscopy ??? UMBILICAL HERNIA REPAIR Medications: Current Outpatient Medications: ??? acyclovir (Zovirax) 5 % ointment, acyclovir 5 % topical ointment, Disp: , Rfl: ??? amitriptyline (Elavil) 25 mg tablet, Take 50 mg by mouth., Disp: , Rfl: ??? aspirin 325 mg tablet, aspirin 325 mg tablet TAKE ONE TABLET BY MOUTH TWICE DAILY, Disp: , Rfl: ??? calcium carbonate 600 mg calcium (1,500 mg) tablet, 300 mg., Disp: , Rfl: ??? chlordiazepoxide-clidinium (Librax) 5-2.5 mg capsule, chlordiazepoxide-clidinium 5 mg-2.5 mg capsule, Disp: , Rfl: ??? cyanocobalamin, vitamin B-12, 1,000 mcg/mL kit, Inject as directed every 30 (thirty) days., Disp: , Rfl: ??? cyclobenzaprine (Flexeril) 10 mg tablet, cyclobenzaprine 10 mg tablet, Disp: , Rfl: ??? dexAMETHasone (Decadron) 6 mg tablet, Take 6 mg by mouth., Disp: , Rfl: ??? diclofenac (Voltaren) 1 % topical gel, apply 4 grams to affected area, Disp: , Rfl: ??? dicyclomine (Bentyl) 20 mg tablet, Take 20 mg by mouth., Disp: , Rfl: ??? docusate sodium (Colace) 100 mg capsule, docusate sodium 100 mg capsule TAKE ONE CAPSULE BY MOUTH TWICE DAILY, Disp: , Rfl: ??? ferrous sulfate 325 (65 Fe) MG tablet, every 12 (twelve) hours., Disp: , Rfl: ??? fluconazole (Diflucan) 100 mg tablet, fluconazole 100 mg tablet, Disp: , Rfl: ??? hyoscyamine 0.125 mg dissolvable tablet, hyoscyamine 0.125 mg sublingual tablet, Disp: , Rfl: ??? lidocaine (Lidoderm) 5 % patch, Place 1 patch on the skin if needed each day., Disp: , Rfl: ??? multivitamin (Theragran-M) 9 mg iron-400 mcg tablet, Take 1 tablet by mouth in the morning., Disp: , Rfl: ??? nirmatrelvir-ritonavir (Paxlovid, EUA,) 150-100 mg tablets,dose pack, Take 2 tablets by mouth twice a day., Disp: , Rfl: ??? nystatin (Mycostatin) 100,000 unit/mL suspension, nystatin 100,000 unit/mL oral suspension, Disp: , Rfl: ??? ondansetron ODT (Zofran-ODT) 4 mg disintegrating tablet, ondansetron 4 mg disintegrating tablet, Disp: , Rfl: ??? pantoprazole (ProtoNix) 40 mg EC tablet, Take 40 mg by mouth., Disp: , Rfl: ??? phenazopyridine (Pyridium) 100 mg tablet, Take 100 mg by mouth if needed in the morning, at noon, and at bedtime., Disp: , Rfl: ??? polyethylene glycol (Glycolax) 17 gram/dose powder, polyethylene glycol 3350 17 gram/dose oral powder DISSOLVE 1 CAPFUL (17 GM) IN 8 OZ JUICE OR WATER AND DRINK ONCE A DAY NEEDED FOR CONSTIPATION. DO NOT USE FOR MORE THAN 2 WEEKS, Disp: , Rfl: ??? promethazine (Phenergan) 25 mg suppository, Insert into the rectum., Disp: , Rfl: ??? tamsulosin (Flomax) 0.4 mg 24 hr capsule, tamsulosin 0.4 mg capsule, Disp: , Rfl: ??? tiZANidine (Zanaflex) 4 mg tablet, if needed., Disp: , Rfl: Allergies and adverse reactions: Allergies Allergen Reactions ??? Desonide ??? Toradol [Ketorolac] Unknown ??? Meperidine Rash Social History: Social History Socioeconomic History ??? Marital status: Spouse name: Not on file ??? Number of children: Not on file ??? Years of education: Not on file ??? Highest education level: Not on file Occupational History ??? Not on file Tobacco Use ??? Smoking status: Former Types: Cigarettes Start date: 12/18/1997 Quit date: 01/19/2017 Years since quittin.7 Passive exposure: Current ??? Smokeless tobacco: Never Vaping Use ??? Vaping Use: Never used Substance and Sexual Activity ??? Alcohol use: Never ??? Drug use: Yes Types: Hydrocodone ??? Sexual activity: Yes Partners: Male control/protection: Surgical Other Topics Concern ??? Not on file Social History Narrative ??? Not on file Social Determinants of Health Financial Resource Strain: Medium Risk ??? Difficulty of Paying Living Expenses: Somewhat hard Food Insecurity: No Food Insecurity ??? Worried About Running Out of Food in the Last Year: Never true ??? Ran Out of Food in the Last Year: Never true Transportation Needs: No Transportation Needs ??? Lack of Transportation (Medical): No ??? Lack of Transportation (Non-Medical): No Physical Activity: Insufficiently Active ??? Days of E (more content not included)... [facility] 10-21-2022 Note RECURRENT PAIN AT ABDULLAHI RGICAL KNEE; RECOMMENDED ER EVALUATION PER [facility] ORTHO [facility] 10-21-2022 Note If pain is 10/10 unc ontrolled I would recommend going to ER for further evaluation. [facility] 10-20-2022 Note Orthopaedic Surgery Outpatient Visit Note Encounter Date: 10/20/2022 Patient: Elvi Moore 1980 PCP Arleth Acharya MD CC: Chief Complaint Patient presents with Left Knee - Follow-up HPI: Elvi Moore is a 41 y.o. female here for a follow up on the left knee revision that was performed on 06/01/[address]. Patient reports that she had influenza and COVID recently and since then has reported that the pain in the knee has gotten significantly worse and stiff. Patient has had no specific event that she can tie the pain to and no falls. She reports that she has had mild relief with tylenol and occasional ibuprofen. Patient went to the ER and reports that she had labs done and an US that was negative. She is afebrile and walking with no assistive devices. Past Medical History: Past Medical History: Diagnosis Date Arthritis Kidney stone Past Surgical History: Procedure Laterality Date APPENDECTOMY BARIATRIC SURGERY CHOLECYSTECTOMY HYSTERECTOMY KNEE ARTHROPLASTY Left 06/01/2022 revision KNEE ARTHROPLASTY Left 10/30/2021 KNEE SURGERY arthroscopy UMBILICAL HERNIA REPAIR Medications: Current Outpatient Medications: lidocaine (Lidoderm) 5 % patch, Place 1 patch on the skin if needed each day., Disp: , Rfl: acyclovir (Zovirax) 5 % ointment, acyclovir 5 % topical ointment, Disp: , Rfl: amitriptyline (Elavil) 25 mg tablet, Take by mouth., Disp: , Rfl: aspirin 325 mg tablet, aspirin 325 mg tablet TAKE ONE TABLET BY MOUTH TWICE DAILY, Disp: , Rfl: calcium carbonate 600 mg calcium (1,500 mg) tablet, 300 mg., Disp: , Rfl: chlordiazepoxide-clidinium (Librax) 5-2.5 mg capsule, chlordiazepoxide-clidinium 5 mg-2.5 mg capsule, Disp: , Rfl: cyanocobalamin, vitamin B-12, 1,000 mcg/mL kit, Inject as directed every 30 (thirty) days., Disp: , Rfl: cyclobenzaprine (Flexeril) 10 mg tablet, cyclobenzaprine 10 mg tablet, Disp: , Rfl: dexAMETHasone (Decadron) 6 mg tablet, Take 6 mg by mouth., Disp: , Rfl: diclofenac (Voltaren) 1 % topical gel, apply 4 grams to affected area, Disp: , Rfl: dicyclomine (Bentyl) 20 mg tablet, Take 20 mg by mouth., Disp: , Rfl: docusate sodium (Colace) 100 mg capsule, docusate sodium 100 mg capsule TAKE ONE CAPSULE BY MOUTH TWICE DAILY, Disp: , Rfl: ferrous sulfate 325 (65 Fe) MG tablet, every 12 (twelve) hours., Disp: , Rfl: fluconazole (Diflucan) 100 mg tablet, fluconazole 100 mg tablet, Disp: , Rfl: hyoscyamine 0.125 mg dissolvable tablet, hyoscyamine 0.125 mg sublingual tablet, Disp: , Rfl: multivitamin (Theragran-M) 9 mg iron-400 mcg tablet, Take 1 tablet by mouth in the morning., Disp: , Rfl: nirmatrelvir-ritonavir (Paxlovid, EUA,) 150-100 mg tablets,dose pack, Take 2 tablets by mouth twice a day., Disp: , Rfl: nystatin (Mycostatin) 100,000 unit/mL suspension, nystatin 100,000 unit/mL oral suspension, Disp: , Rfl: ondansetron ODT (Zofran-ODT) 4 mg disintegrating tablet, ondansetron 4 mg disintegrating tablet, Disp: , Rfl: pantoprazole (ProtoNix) 40 mg EC tablet, Take 40 mg by mouth., Disp: , Rfl: phenazopyridine (Pyridium) 100 mg tablet, Take 100 mg by mouth if needed in the morning, at noon, and at bedtime., Disp: , Rfl: polyethylene glycol (Glycolax) 17 gram/dose powder, polyethylene glycol 3350 17 gram/dose oral powder DISSOLVE 1 CAPFUL (17 GM) IN 8 OZ JUICE OR WATER AND DRINK ONCE A DAY NEEDED FOR CONSTIPATION. DO NOT USE FOR MORE THAN 2 WEEKS, Disp: , Rfl: promethazine (Phenergan) 25 mg suppository, Insert into the rectum., Disp: , Rfl: tamsulosin (Flomax) 0.4 mg 24 hr capsule, tamsulosin 0.4 mg capsule, Disp: , Rfl: tiZANidine (Zanaflex) 4 mg tablet, if needed., Disp: , Rfl: Allergies and adverse reactions: Allergies Allergen Reactions Desonide Toradol [Ketorolac] Unknown Meperidine Rash Social History: Social History Socioeconomic History Marital status: Spouse name: Not on file Number of children: Not on file Years of education: Not on file Highest education level: Not on file Occupational History Not on file Tobacco Use Smoking status: Former Types: Cigarettes Start date: 12/18/1997 Quit date: 01/19/2017 Years since quittin.7 Passive exposure: Current Smokeless tobacco: Never Vaping Use Vaping Use: Never used Substance and Sexual Activity Alcohol use: Never Drug use: Yes Types: Hydrocodone Sexual activity: Yes Partners: Male control/protection: Surgical Other Topics Concern Not on file Social History Narrative Not on file Social Determinants of Health Financial Resource Strain: Medium Risk Difficulty of Paying Living Expenses: Somewhat hard Food Insecurity: No Food Insecurity Worried About Running Out of Food in the Last Year: Never true Ran Out of Food in the Last Year: Never true Transportation Needs: No Transportation Needs Lack of Transportation (Medical): No Lack of Transportation (Non-Medical): No Physical Activ (more content not included)... [facility] 06-29-2022 Evaluation + Plan note Diagnostic Tests [facility]ys[facility] Fish and Urine Cyto ([facility]) 06/29/22 [facility] 06-29-2022 Hospital Discharge instructions Patient Education 06/29/2022 09:47:50 Hematuria, Adult Hematuria, Adult Hematuria is blood in the urine. Blood may be visible in the urine, or it may be identified with a test. This condition can be caused by infections of the bladder, urethra, kidney, or prostate. Other possible causes include: Kidney stones. Cancer of the urinary tract. Too much calcium in the urine. Conditions that are passed from parent to child (inherited conditions). Exercise that requires a lot of energy. Infections can usually be treated with medicine, and a kidney stone usually will pass through your urine. If neither of these is the cause of your hematuria, more tests may be needed to identify the cause of your symptoms. It is very important to tell your health care provider about any blood in your urine, even if it is painless or the blood stops without treatment. Blood in the urine, when it happens and then stops and then happens again, can be a symptom of a very serious condition, including cancer. There is no pain in the initial stages of many urinary cancers. Follow these instructions at home: Medicines Take ydty-lff-qngnexn and prescription medicines only as told by your health care provider. If you were prescribed an antibiotic medicine, take it as told by your health care provider. Do not stop taking the antibiotic even if you start to feel better. Eating and drinking Drink enough fluid to keep your urine clear or pale yellow. It is recommended that you drink 3 4 quarts (2.8 3.8 L) a day. If you have been diagnosed with an infection, it is recommended that you drink cranberry juice in addition to large amounts of water. Avoid caffeine, tea, and carbonated beverages. These tend to irritate the bladder. Avoid alcohol because it may irritate the prostate (men). General instructions If you have been diagnosed with a kidney stone, follow your health care provider's instructions about straining your urine to catch the stone. Empty your bladder often. Avoid holding urine for long periods of time. If you are female: ?After a bowel movement, wipe from front to back and use each piece of toilet paper only once. ?Empty your bladder before and after sex. Pay attention to any changes in your symptoms. Tell your health care provider about any changes or any new symptoms. It is your responsibility to get your test results. Ask your health care provider, or the department performing the test, when your results will be ready. Keep all follow-up visits as told by your health care provider. This is important. Contact a health care provider if: You develop back pain. You have a fever. You have nausea or vomiting. Your symptoms do not improve after 3 days. Your symptoms get worse. Get help right away if: You develop severe vomiting and are unable take medicine without vomiting. You develop severe pain in your back or abdomen even though you are taking medicine. You pass a large amount of blood in your urine. You pass blood clots in your urine. You feel very weak or like you might faint. You faint. Summary Hematuria is blood in the urine. It has many possible causes. It is very important that you tell your health care provider about any blood in your urine, even if it is painless or the blood stops without treatment. Take yuwg-acb-qdagmmy and prescription medicines only as told by your health care provider. Drink enough fluid to keep your urine clear or pale yellow. This information is not intended to replace advice given to you by your health care provider. Make sure you discuss any questions you have with your health care provider. Document Released: 09/27/2006 Document Revised: 02/21/2020 Document Reviewed: 10/30/2017 Elsevier Patient Education 2019 [employer] Follow Up Care 05/06/2022 15:50:29 With:ROSS GENTILE, Diana Goss, URL Address: [facility] [address] [place] [address]- [phone] When: Unknown [facility] 06-16-2022 Note MR#: [id number] I [facility] Pt. Name: Elvi Moore Admitted: 06/01/2022 Discharged: 06/01/2022 Date of : 1980 Physician: Kevin Lane M.D. DISCHARGE SUMMARY PRINCIPAL DIAGNOSIS: Left total knee arthroplasty pain associated with prosthesis along with stiffness. PROCEDURE PERFORMED AND TREATMENT RENDERED: This patient is a 41-year-old female with previous left total knee arthroplasty. She is having pain and stiffness of this joint since that time despite physical therapy and manipulation under anesthesia. She was unable to regain significant relief of her symptoms and improvement of her range of motion. She discussed further treatment options. The patient elected to undergo revision of this left total knee arthroplasty. She underwent this procedure without complication. Postoperatively, the patient was able to mobilize with physical therapy on postop day 0. She was discharged on postop day 0 with appropriate oral DVT prophylaxis along with oral pain control medication. She is weightbearing as tolerated to the left lower extremity. She will follow up with Dr. Lane in 2 weeks for repeat clinical evaluation at that time. She is discharged home in good condition. Electronically Signed by: Kevin Lane M.D. 06/23/2022 07:[address] M.D. I have reviewed this discharge summary and confirmed the resident's documentation. Please note that there may be additional documentation from me. Date Dict: 06/16/2022/10:36 A/Alvin Cavazos MD Date Trans: 06/16/2022 02:27 P/taylor [id number] cc: Arleth Acharya M.D. [address] [facility] [id number] [facility] Evaluation + Plan note Future Appointments Appointment Date:01/11/2023 01:45:00 PM Scheduled Provider:Diana HAWKINS MD Location:[facility] Appointment Type:URO Office Visit [facility] Evaluation note [facility] course Narrative No data available for this section [facility] Progress note No data available for this section [facility] Summary Purpose Family History No Family History Records Found Relationship Condition Age at Onset Recorded Date/T norman sister Malignant neoplasm of breast Unknown Not Specified Neoplasm of brain Unknown Advance Directives No Advanced Directives Records Found Advance Directive Response Recorded Date/ Time Advance Directives No June 5:02pm Chief Complaint and Reason for Visit Chief Complaint microcytic anemia Additional Source Comments INFORMATION SOURCE (unrecogn ized section and content) DATE CREATED AUTHOR 03/31/2018 [facility] DATE CREATED AUTHOR AUTHOR'S ORGANIZ ATION 10/11/2018 [facility] DATE CREATED AUTHOR AUTHOR'S ORGANIZ ATION 06/23/2022 [facility] DATE CREATED AUTHOR AUTHOR'S ORGANIZ ATION 01/28/2023 [facility] DATE CREATED AUTHOR AUTHOR'S ORGANIZ ATION 07/31/2023 [facility] DATE CREATED AUTHOR AUTHOR'S ORGANIZ ATION 09/10/2023 [facility] DATE CREATED AUTHOR AUTHOR'S ORGANIZ ATION 09/27/2023 [facility] Care Team (unrecognized sect ion and content) Team Status: Active Member Role Status Dates Arleth Acharya MD Primary Care Provider Active Team Status: Active Member Role Status Dates Arleth Acharya MD Primary Care Provider, Referring Pr sebastian Active Osiris Calderón APRN Attending Provider Acti ve Goals (unrecognized section and content) Goals may be documented in a n alternate section FOR RECORDS PERTAINING TO PATIENTS WHO ARE OR HAVE BEEN ENROLLED IN A CHEMICAL DEPENDENCY/SUBSTANCEABUSE PROGRAM, SOME INFORMATION MAY BE OMITTED. This clinical summary was aggregated from multiple sources. Caution should be exercised in using it in the provision of clinical care. This summary normalizes information from multiple sources, and as a consequence, information in this document may materially change the coding, format and clinical context of patient data. In addition, data may be omitted in some cases. CLINICAL DECISIONS SHOULD BE BASED ON THE PRIMARY CLINICAL RECORDS. [facility], [facility]. provides no warranty or guarantee of the accuracy or completeness of information in this document.
== END 2023-08-18 12:51 | disposition home or self-care (01) ==
LOC: US 12:50
PROVIDERS: PCP Family Medicine; Visit Provider Family Medicine
DX: N20.0 Calculus of kidney (principal)
CPT/HCPCS: 76770

== ENCOUNTER 2023-09-13 13:33 | Outpatient (OUT) | payer OTHER, SELFPAY ==
--- NOTE | 2023-09-13 14:15 | ECG_ITS ---
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
== END 2023-09-13 13:34 | disposition home or self-care (01) ==
PROVIDERS: PCP Family Medicine; Visit Provider Urology
DX: Z01.810 Encounter for preprocedural cardiovascular examination (principal)
CPT/HCPCS: 93005

== ENCOUNTER 2023-09-16 07:01 | Day surgery (SDC) | payer OTHER, SELFPAY ==
[2023-09-13 14:17] VITALS: BP 141/104; BP 143/107; PULSE 80; RESP 20; TEMP 36.1; O2SAT 98
[2023-09-13 14:21] VITALS: BMI 24.8
[2023-09-16] VITALS (11 sets, daily range): BP systolic 106–162; BP diastolic 79–106; PULSE 61–90; RESP 10–16; TEMP 36.1–36.6; O2SAT 95–100; BMI 24.6
--- NOTE | 2023-09-16 | FL_ITS ---
The [place] [id number] Patient Name: KRISTINE MADDEN MRN: [id number] date: 1980 Sex: F Assigned Patient Location: SURGOUT Current Patient Location: [facility] Accession/Order Number: [id number] Exam Date: 09/16/2023 08:15 Report Date: 09/20/2023 09:20 At the request of: DIANA HAWKINS Procedure: FL fluoroscopy <1hr NON-READ EXAM: FL fluoroscopy <1hr NON-READ HISTORY: kidney stone TECHNIQUE: FINDINGS: Please see Operative Report. Electronically authenticated by: RADIOLOGIST NO Date: 09/20/2023 09:20
[2023-09-16] MEDS: LACTATED RINGER'S SOLUTION 1,000 ML 50 ML IV (07:51)
[2023-09-16] MEDS: CEFAZOLIN SODIUM/DEXTROSE,ISO 1 GM/50 ML IV.SOLN IV (08:02)
[2023-09-16] MEDS: HYDROMORPHONE HCL 0.5 MG/0.5 ML SYRINGE IV ×2 (09:16→09:34)
--- NOTE | 2023-09-16 09:17 | PM.URSON ---
Urology Surgery Operative Note Operative Note Procedure Date: 09/16/23 Time Out Performed: yes Pre-op Diagnosis: left flank pain and left nephrolithiasis Post-op Diagnosis: same as pre-op Procedures performed: or 1. Cystoscopy. #2. Left rigid ureteral dilation. #3. Left ureteroscopy. #4. The left pyeloscopy. #5. Thulium laser lithotripsy of left renal calculi. #6.Stone basket extraction of left renal calculi.#7. Placement of 6 Lao variable length left ureteral stent. Anesthesia: General-LMA Primary Surgeon: Jeremiah Bautista Complications: none Estimated blood loss (mL): 10 Findings: #1. Distal left ureteral stenosis. #2. Left renal calculi. Specimens: left renal calculi fragments Indications for Procedures: this lady has a history of nephrolithiasis. She developed left flank pain. She was found to have a left nephrolithiasis which were nonobstructing. Her pain persisted and intensified and it was accompanied with nausea and vomiting. because of her CAT scan showing no evidence of obstruction and her persistent pain and nausea and vomiting she was offered ureteroscopic stone manipulation and stent placement so as to be able to evaluate her entire urinary tract on the left side. She was strongly desirous for these procedures. She signed an informed consent after all risks were explained. Detailed description of Procedure: The patient was brought to the operating room and placed on the operating room table in the supine position. SCDs were placed on the lower extremities and turned on and functioning during the entire case. Timeout was done by all parties in the room. We all agreed upon the patient's identification and the planned procedures for this patient. Genn. anesthesia was then administered. The patient was then repositioned into the modified dorsal lithotomy position. All pressure points were satisfactorily padded. Genitalia were sterilely prepped and draped in usual fashion.I started by passing a 22 Lao Olympus cystoscope per urethra and into the bladder. Careful panendoscopy in the bladder showed no evidence of any tumors stones or mucosal lesions. While using fluoroscopy I could see her stone up in the kidney on the left. I then passed a Glidewire through the scope and cannulated the left ureter. There was an immediate E flux of some cloudy urine suggesting partial obstruction of the ureter. I then used a 8 and 10 Lao rigid dilators to dilate the distal ureter. I then removed the cystoscope and then passed a navigator 08/23 ureteral access sheath over the wire and further dilated the distal ureter. Sheath tip was at the L5 level. The stylette and wire were then removed. I then passed a flexible ureteroscope through the access sheath and into the ureter. I ascended up the ureter and then went into the kidney. The proximal ureter was unremarkable. I scoped into all the calyces of the kidney. The upper and mid calyces were unremarkable. Within the lower pole calyces were 2 stones. The larger of the 2 was minimally attached to the papilla. I used a 270 ? Thulium laser fiber and made contact with the stone. I then began doing laser lithotripsy at 6 W continuously. I was able to fragment the stone into 3 pieces. I then used a 0 tip basket and engaged pieces and extracted them down and out. They were sent for stone analysis. The 2nd smaller stone within the adjacent lower pole calyx was then attempted to get grasped but we were unable. I was able to irrigate this out. Upon completion there was no renal stones remaining endoscopically or fluoroscopically. I then passed a wire through the scope and then slowly removed the scope and the access sheath. While doing this I evaluated the rest of the ureter and could clearly see that she had a significant distal ureteral stenosis that was now dilated. I then backloaded the cystoscope over the wire and passed it into the bladder. I then slid a 6 Lao variable length ureteral stent over the wire up into the kidney. The wire was removed and there were good curls in the kidney and in the bladder. The bladder was drained of its contents and the scope was then removed. She was then transferred to a [facility] bed and wheeled to PACU in stable condition.
--- NOTE | 2023-09-16 09:25 | PC.NURSE ---
Medicated as ordered for pain
[2023-09-16] MEDS: ONDANSETRON PF 4 MG/2 ML VIAL IV (09:30)
--- NOTE | 2023-09-16 09:43 | PC.NURSE ---
c/o nausea; medicated as ordered; no emesis
--- NOTE | 2023-09-16 09:48 | PC.NURSE ---
Medicated with IV Dilaudid as ordered
--- NOTE | 2023-09-16 09:50 | PC.NURSE ---
No further c/o nausea
--- NOTE | 2023-09-16 09:53 | PC.NURSE ---
Urge to void; placed on bedpan
--- NOTE | 2023-09-16 10:01 | PC.NURSE ---
Removed from bedpan and voided pinkish /red clear urine
[2023-09-25 17:07] LABS: Calcium Oxalate Dihydrate 60 % (.); Calcium Oxalate Monohydrate 35 % (.); Calcium phosphate (hydroxyl) 5 % (.); Size 3x2 mm (.)
--- OUTSIDE RECORDS SUMMARY | 2023-09-29 02:26 | XMS_ITS | CCD ---
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 Name Role Phone JAY JAY ZHANE W Unavailable Unavailable Hoy, Arleth Dax [...] Unavailable HOY, ARLETH M Unavailable Unavailable HOY, ARLETH M Unavailable Unavailable HOY, ARLETH M Unavailable [...] Care Unavailable FORSRAMIROY, JORDEN D Admitting Unavailable AMRY GRACE, JORDEN D Attending Unavailable SELF, REFERRED [...] Care Unavailable FORSHEY, JORDEN D Admitting Unavailable FORSRMAIROY, JORDEN D Attending Unavailable SELF, REFERRED Referring Unavailable SELF, REFERRED Primary Care Unavailable Madaying, Kevin Attending Unavailable Gehling, Kevin Admitting Unavailable SELF, REFERRED Referring Unavailable Tariky Arleth Primary Care Physician ROSS ., DR ORTIZ Consulting Unavailable NICK [...] Unavailable MD Arleth Acharya Primary Care Provider [phone] MD Arleth Acharya Referring Provider [phone] DO Calderón Attending Provider Osiris Calderón Admitting [...] Drug Allergy 05-29-20 15 Unknown (qualifier value) [facility] Repository (5 sources) meperidine; Translations: [Demerol HCl] Drug Allergy [facility] Repository (2 sources) Meperidine Drug Allergy 08-01-20 13 [facility] Repository (1 source) Desonide Drug Allergy [facility] Repository (3 sources) Ketorolac; Translations: [ketorolac] Drug Allergy 11-22-19 22 Unknown Reaction [facility] (3 sources) Meperidine; Translations: [meperidine] Drug Allergy 08-01-20 13 Unknown Reaction [facility] (1 source) Desonide; Translations: [DESONIDE] Drug Allergy 01-09-20 21 [facility] Repository (2 sources) Prochlorperazin e; Translations: [PROCHLORPERAZI NE] Drug Allergy 02-12-20 23 Hallucinations (finding) [facility] Repository (1 source) Prochlorperazin e; Translations: [Compazine] Drug Allergy [facility] Repository (1 source) No Known Medication Allergies; Translations: [No Known Medication Allergies] Propensity to adverse reactions (disorder) [facility] Repository Medications Current Medications Medication Drug Class(es) Dates Sig (Normalized) Sig (Original) acetaminophen 325 mg / HYDROcodone bitartrate 5 mg oral tablet (3 sources) Opioid Agonist Start: 05-27-2023 take 1 tablet by mouth twice daily Hydrocodone-Aceta minophen Active 1 TAB PO Twice daily May 27, 2023 12:00am Start: 07-27-2022 Pollok 325 mg-5 mg oral tablet 1 tab(s), Oral, BID Pain 8-10, 20 tab(s), Refill(s) 0, [id number], 167, cm, 06/29/22 9:28:00 EDT, Height/Length Dosing, 69, kg, 06/29/22 9:28:00 EDT, Weight Dosing Start Date: 07/27/22 Status: Ordered Start: 06-29-2022 take 1 tablet by mary th every six hours Pollok 325 mg-5 mg oral tablet tab(s), Oral, [...] Onset: 12-09-2021 Chronic Other aftercare (1 source) 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; Translations: [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 MAKER (CURRENT) USE OF ASPIRIN] Onset: 06-03-2022 Episodic Other aftercare (2 sources) Other senior care (current) drug therapy; Translations: [OTHER METER MAKER (CURRENT) DRUG THERAPY] Onset: 08-12-2021 Episodic Other [...] Facil ity Lab Reportson 09-27-2023 Lab Reports [id number]#1.00T IFF Normal [facility] OARRS Reporton 09-27-2023 OARRS Report [id number]#1.00 TIFF [facility] Pre-Certification Formon Pre-Certification Form [id number]#1.00TIFF [facility] Provider Letteron 09-27-2023 Provider Letter (Inserted Image. Darleen ble to display) September 27, 2023 [place] [address] : 1980 To Whom It May Concern, Please excuse above patient from work. Date of Illness: From: 09/16/2023 To: 09/28/2023 May Return to Work On:09/29/2023 Restrictions: No Restrictions Comments: Any questions, please call our office Sincerely, [facility] [address], [place] [address] [facility] Provider Letter (Inserted Image. Darleen ble to display) September 27, 2023 [place] [address] : 1980 To Whom It May Concern, Please excuse above patient from work. Date of Illness: From: 09/16/2023 To: 09/28/2023 May Return to Work On: 09/29/2023 Restrictions: No Restrictios Comments: _ Sincerely, [facility] [address] [place] [address] [facility] Formson 09-22-2023 Forms [id number]#1.00TI FF [facility] RAD - MISCon 09-21-2023 RAD - MISC [id number]#1.00TI FF [facility] Provider Letteron 09-20-2023 Provider Letter (Inserted Image. Darleen ble to display) September 20, 2023 [place] [address] : 1980 To Whom It May Concern, Please excuse above patient from work. Date of Illness: From: 09/16/23 To: 09/21/23 May Return to Work On: 09/22/23 Restrictions: N/A Comments: Patient may return to work 09/22/23. Patient had a surgical procedure done 09/16/[address] Diana Hawkins. Sincerely, [facility] ECG 12-Leadon 09-17-2023 ECG 12-Lead [id number]#1.00T IFF [facility] Lab Reportson 09-17-2023 Lab Reports [id number]#1.00T IFF [facility] RAD - CT Reporton 09-17-2023 RAD - CT Report [id number]#1.00TIFF [facility] RAD - MISCon 09-17-2023 RAD - MISC [id number]#1.00TI FF [facility] RAD - Ultrasound Reporton RAD - Ultrasound Report [id number]#1.00TIFF [facility] Operative Reporton Operative Report [id number]#1.00TIFF [facility] ED Note-Physicianon 09-14-20 ED Note-Physician [id number] #1.00TIFF [facility] Insurance Correspondenceon 11-15-2022 Insurance Correspondence [id number]#1.00TIFF [facility] RAD - CT Reporton 09-14-2023 RAD - CT Report [id number]#1.00TIFF [facility] RAD - CT Report [id number]#1.00TIFF Scotty Cuellar [facility] Ambulatory Visit Summaryon 1 11-14-2022 Ambulatory Visit Summary ELVI MOORE :1980 Visit Date:09/13/2023 Ambulatory Visit Instructions Your Diagnosis Kidney stone Gross hematuria Left flank pain Tests Performed Urnls Dip Stick Auto w/o Microscopy POC 86087 Your Care Team Attending Physician - Diana HAWKINS MD Primary Care Physician - Arleth Acharya MD [...] Following Appointments Follow Up with ROSS GENTILE, Diana Goss, RASHIL When: Comments: sched cysto Where: [facility] [address] , [place] [address] [phone] Medications What How Much When Instructions Unchanged [...] Urnls Dip Stick Auto w/o Microscopy POC 84702 (09/13/2023) Bilirubin Urine Dipstick - Negative Blood Urine Dipstick - 2+ Moderate Glucose Urine Dipstick - Negative Ketones Urine Dipstick - Negative Leukocytes Urine Dipstick - Negative Nitrite Urine Dipstick - Negative Protein Urine Dipstick - Negative Specific [place] Urine Dipstick - 1.025 Urine Appearance Urine [...] including vitamins, herbs, eye drops, creams, and arzw-gct-hcllwcy medicines. ? Any problems you or family members have had with anesthetic medicines. ? Any blood disorders you have. ? Any surgeries you have had. ? Any m (more content not included)... [facility] Consent for Procedure/Surger yon 09-13-2023 Consent for Procedure/Surgery [id number]#1.00TIFF [facility] 36on 09-08-2023 36 Patient seen in the ER for a large kidney stone. Was prescribed Oxycodone medication for pain discomfort. Patient would like to know if this will be ok for her to get from pharmacy. Please advise [phone]. Thank you [facility] Consultation Noteon 08-23-20 Consultation Note [id number]#1.00TIFF [facility] Lab Reportson 08-23-2023 Lab Reports [id number]#1.00 TIFF [facility] Consultation Noteon 08-20-20 Consultation Note [id number]#1.00TIFF [facility] Follow-Upon 08-19-2023 Follow-Up [id number] Madyson Moore 1980 F Date Provider Department [place] 08/19/2023 Woody-ARJUN MINER PAIN [facility] Family History Problem Relation Age of Onset Brain cancer Mother Breast cancer Sister Kidney cancer Maternal Grandmother Prostate cancer Paternal Grandfather Cancer Father Cancer Sister Family Status - Relation Status Age at Mother Sister Maternal Grandmother Paternal Grandfather Father Sister Level of Service:17017 NC OFFICE/OUTPATIENT ESTABLISHED MOD MDM 30-39 MIN Reason for Visit and Comments: Follow-up [231770] - Chronic Left Knee Pain [facility] Follow-Upon 07-20-2023 Follow-Up [id number] Madyson Moore 1980 F Date Provider Department Center 07/20/2023 ARJUN ROSE MP PAIN [facility] Family History Problem Relation Age of Onset Brain cancer Mother Breast cancer Sister Kidney cancer Maternal Grandmother Prostate cancer Paternal Grandfather Cancer Father Cancer Sister Family Status - Relation Status Age at Mother Sister Maternal Grandmother Paternal Grandfather Father Sister Level of Service:57487 NC OFFICE/OUTPATIENT ESTABLISHED MOD MDM 30-39 MIN Reason for Visit and Comments: Follow-up [533619] - Left knee pain Normal [facility] Orders Onlyon 07-07-2023 Orders Only [id number] Madyson Moore 1980 F Date Provider Department Center 07/07/2023 RUKHSANA ESPINOZA MP PAIN [facility] Family History Problem Relation Age of Onset Brain cancer Mother Breast cancer Sister Kidney cancer Maternal Grandmother Prostate cancer Paternal Grandfather Cancer Father Cancer Sister Family Status - Relation Status Age at Mother Sister Maternal Grandmother Paternal Grandfather Father Sister [facility] 36on 06-09-2023 36 Approving, but needs appt for additional refills. [facility] 36 Patient is cayla dsouza her Pollok 5/325 refill, needs it before the weekend. Please and thank you so much. [facility] Follow-Upon 06-01-2023 Follow-Up [id number] Madyson Moore 1980 Date Provider Department Center 06/01/2023 ARJUN ROSE MP [facility] Family History Problem Relation Age of Onset Brain cancer Mother Breast cancer Sister Kidney cancer Maternal Grandmother Prostate cancer Paternal Grandfather Cancer Father Cancer Sister Family Status - Relation Status Age at Mother Sister Maternal Grandmother Paternal Grandfather Father Sister Level of Service:42733 NC OFFICE/OUTPATIENT ESTABLISHED LOW MDM 20-29 MIN (GC) Reason for Visit and Comments: Med Management [7227011600] - Left Leg Pain No refills needed today [facility] Ferritinon 05-28-2023 Ferritin [Mass/Vol] 4.9 ng/mL Low 11.0-306.8 [facility] Comment on above: Result Comment: PERF ORMED BY: [facility] [address] [place] [address] PATHOLOGIST ADMITTING OFFICER MELISSA WAGNER M.D. Performed By: #### S CAN CBC, JANESSA, FE and TIBC #### [address] Iron and TIBC Profileon 05-11 % Iron Saturation 2.5 % Low 20-50 [facility] Comment on above: Performed By: #### S CAN CBC, JANESSA, FE and TIBC #### [address] Iron [Mass/Vol] 13 ug/dL Low 50-212 [facility] Comment on above: Performed By: #### S CAN CBC, JANESSA, FE and TIBC #### [address] Total Iron Binding Capacity 517 ug/dL High 255-450 [facility] Comment on above: Performed By: #### S CAN CBC, JANESSA, FE and TIBC #### [address] Transferrin [Mass/Vol] 369 mg/dL High 203-362 [facility] Comment on above: Performed By: #### S CAN CBC, JANESSA, FE and TIBC #### [address] Scan and CBCon 05-28-2023 Anisocytosis Ql (Bld) Marked Normal [facility] Comment on above: Performed By: #### S CAN CBC, JANESSA, FE and TIBC #### [address] Basophils (Bld) [#/Vol] 0.0 10*3/uL Normal 0.0-0.2 [facility] Comment on above: Performed By: #### S CAN CBC, JANESSA, FE and TIBC #### [address] Basophils/100 WBC (Bld) 0.3 % Normal . [facility] Comment on above: Performed By: #### S CAN CBC, JANESSA, FE and TIBC #### [address] Eosinophils (Bld) [#/Vol] 0.0 10*3/uL Normal 0.0-0.45 [facility] Comment on above: Performed By: #### S CAN CBC, JANESSA, FE and TIBC #### [address] Eosinophils/100 WBC (Bld) 0.6 % Normal . [facility] Comment on above: Performed By: #### S CAN CBC, JANESSA, FE and TIBC #### [address] Erythrocyte distribution wid th (RBC) [Ratio] 20.1 % High 11.9-15.3 [facility] Comment on above: Performed By: #### S CAN CBC, JANESSA, FE and TIBC #### [address] Hematocrit (Bld) [Volume fraction] 28.6 % Low 34.0-46.4 [facility] Comment on above: Performed By: #### S CAN CBC, JANESSA, FE and TIBC #### [address] Hemoglobin (Bld) [Mass/Vol] 8.9 g/dL Low 11.8-15. 4 [facility] Comment on above: Performed By: #### S CAN CBC, JANESSA, FE and TIBC #### [address] Hypochromasia Moderate Normal [facility] Comment on above: Performed By: #### S CAN CBC, JANESSA, FE and TIBC #### [address] Lymphocytes (Bld) [#/Vol] 2.6 10*3/uL Normal 1.00-4.8 [facility] Comment on above: Performed By: #### S CAN CBC, JANESSA, FE and TIBC #### [address] Lymphocytes/100 WBC (Bld) 37.7 % Normal . [facility] Comment on above: Performed By: #### S CAN CBC, JANESSA, FE and TIBC #### [address] MCH (RBC) [Entitic mass] 20.5 pg Low 24.7-34.3 [facility] Comment on above: Performed By: #### S CAN CBC, JANESSA, FE and TIBC #### [address] MCV (RBC) [Entitic vol] 65.8 fL Low 80-100 F [facility] Comment on above: Performed By: #### S CAN CBC, JANESSA, FE and TIBC #### [address] Mean Corpuscular HGB Conc 31.1 g/dL Low 32.0-35.0 [facility] Comment on above: Performed By: #### S CAN CBC, JANESSA, FE and TIBC #### [address] Microcytosis Marked Normal [facility] Comment on above: Performed By: #### S CAN CBC, JANESSA, FE and TIBC #### [address] Monocytes (Bld) [#/Vol] 0.4 10*3/uL Normal 0.0-0.8 [facility] Comment on above: Performed By: #### S CAN CBC, JANESSA, FE and TIBC #### [address] Monocytes/100 WBC (Bld) 6.3 % Normal . F [facility] Comment on above: Performed By: #### S CAN CBC, JANESSA, FE and TIBC #### [address] Neutrophils (Bld) [#/Vol] 3.8 10*3/uL Normal 1.8-7.7 [facility] Comment on above: Performed By: #### S CAN CBC, JANESSA, FE and TIBC #### [address] Neutrophils/100 WBC (Bld) 55.1 % Normal . [facility] Comment on above: Performed By: #### S CAN CBC, JANESSA, FE and TIBC #### [address] NRBC% 0.1 /100{WBC} Normal 0-0.5 [facility] Comment on above: Performed By: #### S CAN CBC, JANESSA, FE and TIBC #### [address] Ovalocytes Slight Normal [facility] Comment on above: Performed By: #### S CAN CBC, JANESSA, FE and TIBC #### [address] Platelet Estimate Normal Normal Normal [facility] Comment on above: Performed By: #### S CAN CBC, JANESSA, FE and TIBC #### [address] Platelet mean volume (Bld) [Entitic vol] 8.7 fL Normal 6.3-10.7 [facility] Comment on above: Performed By: #### S CAN CBC, JANESSA, FE and TIBC #### [address] Platelet Morphology Normal Normal Normal [facility] Comment on above: Result Comment: PERF ORMED BY: [place] [address] PATHOLOGIST ADMITTING OFFICER MELISSA WAGNER M.D. Performed By: #### S CAN CBC, JANESSA, FE and TIBC #### [address] Platelets (Bld) [#/Vol] 218 10*3/uL Normal 150-450 [facility] Comment on above: Performed By: #### S CAN CBC, JANESSA, FE and TIBC #### [address] Poikilocytosis Slight Normal [facility] Comment on above: Performed By: #### S CAN CBC, JANESSA, FE and TIBC #### [facility] [address] RBC (Bld) [#/Vol] 4.34 10*6/uL Normal 3.60-5.00 [facility] Comment on above: Performed By: #### S CAN CBC, JANESSA, FE and TIBC #### [facility] [address] Schistocytes Slight Normal [facility] Comment on above: Performed By: #### S CAN CBC, JANESSA, FE and TIBC #### [facility] [address] WBC (Bld) [#/Vol] 6.9 10*3/uL Normal 3.8-11.6 [facility] Comment on above: Performed By: #### S CAN CBC, JANESSA, FE and TIBC #### [facility] [address] 29on 05-04-2023 29 Addended by: ARJUN MINER on: 05/04/2023 11:37 AM Modules accepted: Level of Service Normal Unive rsity [facility] Follow-Upon 05-04-2023 Follow-Up [id number] Madyson Moore 1980 F Date Provider Department Center 05/04/2023 274-ARJUN MINER PAIN [facility] Chart Close Cosign Required by: Arjun Miner MD[[id number]] Family History Problem Relation Age of Onset Brain cancer Mother Breast cancer Sister Kidney cancer Maternal Grandmother Prostate cancer Paternal Grandfather Cancer Father Cancer Sister Family Status - Relation Status Age at Mother Sister Maternal Grandmother Paternal Grandfather Father Sister Level of Service:48237 NC POSTOP FOLLOW UP VISIT RELATED TO ORIGINAL PX Reason for Visit and Comments: Follow-up [608082] - S/P Jackson Implant 1 week post-op. Within the first few days her knee was 70% improvement in pain relief, while her incision site is still very sore at a 25% improvement since the procedure. Normal Univers ity [facility] HPon 04-28-2023 HP History Of Present [...] MG tablet every 12 (twelve) hours. HYDROcodone-acetaminophen (Pollok) 5-325 mg tablet Take 1 tablet by [...] meds will be given Arjun Miner MD [facility] OPNOTEon 04-28-2023 OPNOTE INSERTION, PULSE GEN ERATOR, SPINAL CORD STIMULATOR Operative Note Date: 04/28/2023 Location: [facility] OR Name: Elvi Moore, : 1980, Diagnosis Pre-op Diagnosis * Complex regional pain syndrome type 1 of left lower extremity [G90.522] Post-op Diagnosis * Complex regional pain syndrome type 1 of left lower extremity [G90.522] Procedures INSERTION, PULSE GENERATOR, SPINAL CORD STIMULATOR 72683 - NC INSJ/RPLCMT SPI NPGR DIR/INDUXIVE COUPLING NC PRQ IMPLTJ NSTIM ELECTRODE ARRAY EPIDURAL [60664] NC ELEC ADITYA IMPLT NPGT CPLX SP/PN PRGRMG [56715] Surgeons * Arjun Miner - Primary Procedure Summary Anesthesia: Monitor Anesthesia Care ASA: III Estimated Blood Loss: 10 mL Implants Type Name Action Serial No. [employer]TIP [employer]G Explanted [id number] [employer] Implanted [id number] PROCLAIM DRG Implanted [id number] [employer] Implanted [id number] Staff: Drawer In Jacquard Loom: Phillip Meyer RN Scrub Person: [facility] Duarte [...] then introduced (more content not included)... [facility] POCT GLUCOSE METER UNSOLICIT ED RESULTSon 04-28-2023 Glucose [Mass/Vol] 88 mg/dL Normal 70-105 [facility] Comment on above: Order Comment: Waive d Testing in the ED is performed under the ED CLIA certificate #[id number]. Result Comment: ngro bronwyn Performed By: #### L [id number] ####[facility] ([facility])[address] [place] [address] BASIC METABOLIC PANELon 07-0 Anion gap [Moles/Vol] 11 mmol/L Normal 7-20 [facility] Comment on above: Performed By: #### L [id number] #### [facility] ([facility]) [address] [facility] [address] Calcium [Mass/Vol] 9.2 mg/dL Normal 8.6-10.3 [facility] Comment on above: Performed By: #### L [id number] #### [facility] ([facility]) [address] [facility] [place] [address] Chloride [Moles/Vol] 106 mmol/L Normal 98-107 [facility] Comment on above: Performed By: #### L [id number] #### [facility] ([facility]) [address] [address] CO2 [Moles/Vol] 27 mmol/L Normal 21-31 [facility] Comment on above: Performed By: #### L [id number] #### [facility] ([facility]) [address] [place] [address] Creatinine [Mass/Vol] 0.76 mg/dL Normal 0.60-1.20 [facility] Comment on above: Performed By: #### L [id number] #### [facility] ([facility]) [address] [place] [address] GLOMERULAR FILTRATION RATE ML/MIN/1.73 SQ M.PREDICTED 100.9 mL/min/1.73m*2 Normal >60.0 [facility] Comment on above: Result Comment: [facility]???s estimated glomerular filtration rate (eGFR) will no [...] group of individuals. Performed By: #### L [id number] #### [facility] ([facility]) [address] [place] [address] Glucose [Mass/Vol] 64 mg/dL Low 70-100 [facility] Comment on above: Performed By: #### L [id number] #### [facility] ([facility]) [address] [place] [address] Potassium [Moles/Vol] 4.3 mmol/L Normal 3.5-5.1 [facility] Comment on above: Performed By: #### L [id number] #### [facility] ([facility]) [address] [place] [address] Sodium [Moles/Vol] 140 mmol/L Normal 136-145 [facility] Comment on above: Performed By: #### L [id number] #### [facility] ([facility]) [address] [place] [address] Urea nitrogen [Mass/Vol] 12 mg/dL Normal 7-25 [facility] Comment on above: Performed By: #### L [id number] #### [facility] ([facility]) [address] [place] [address] UREA NITROGEN/CREATININE (MA SS RATIO) IN SER/PLAS 15.8 Normal [facility] Comment on above: Performed By: #### L [id number] #### [facility] ([facility]) [address] [place] [address] CBC WITH AUTO DIFFERENTIALon 04-15-2023 Erythrocyte distribution wid th (RBC) [Ratio] 17.9 % High 11.5-15.0 [facility] Comment on above: Performed By: #### L [id number] #### [facility] ([facility]) [address] [place] [address] ERYTHROCYTE MEAN CORPUSCULAR HEMOGLOBIN CONCENTRATION (G/DL) BY AUTOMATED 28.7 g/dL Low 32.0-35.0 [facility] Comment on above: Performed By: #### L [id number] #### [facility] [address] [place] [address] Hematocrit (Bld) [Volume fraction] 31.0 % Low 36.0-48.0 [facility] Comment on above: Performed By: #### L [id number] #### [facility] [address] [place] [address] Hemoglobin (Bld) [Mass/Vol] 8.9 g/dL Low 12.0-15. 0 [facility] Comment on above: Performed By: #### L [id number] #### [facility] ([facility]) [address] [place] [address] MCH (RBC) [Entitic mass] 20.0 pg Low 27.0-33.0 [facility] Comment on above: Performed By: #### L [id number] #### [facility] ([facility] [address] [place] [address] MCV (RBC) [Entitic vol] 69.5 fL Low 82.0-98.0 [facility] Comment on above: Performed By: #### L [id number] #### [facility] ([facility]) [address] [place] [id number] NRBC (PER 100 WBCS) BY AUTOM ATED COUNT 0.0 % Normal 0 [facility] Comment on above: Performed By: #### L [id number] #### [facility] ([facility]) [address] [place] [address] PLATELETS (10*3/UL) IN BLOOD AUTOMATED COUNT 294 10*3/uL Normal 150-400 [facility] Comment on above: Performed By: #### L [id number] #### [facility] ([facility]) [address] [place] [address] RBC (Bld) [#/Vol] 4.46 10*6/uL Normal 3.80-5.00 [facility] Comment on above: Performed By: #### L [id number] #### [facility] ([facility]) [address] [place] [address] WBC (Bld) [#/Vol] 4.65 10*3/uL Normal 4.00-10.60 [facility] Comment on above: Performed By: #### L [id number] #### [facility] ([facility]) [address] [place] [address] Labon 04-15-2023 Lab [id number] Madyson Moore ma 1980 F Date Provider Department Center 04/15/2023 2244-[facility] MP LAB RESOURCE MP DRAW Medical Pavi Family History Problem Relation Age of Onset Brain cancer Mother Breast cancer Sister Kidney cancer Maternal Grandmother Prostate cancer Paternal Grandfather Cancer Father Cancer Sister Family Status - Relation Status Age at Mother Sister Maternal Grandmother Paternal Grandfather Father Sister Normal [facility] MANUAL DIFFERENTIALon 2022 ANISOCYTOSIS PRESENCE IN BLO OD BY LIGHT MICROSCOPY Moderate Normal [facility] Comment on above: Performed By: #### L [id number] #### [facility] ([facility]) [address] [place] [address] BASOPHILS (10*3/UL) IN BLOOD BY CALCULATION 0.01 10*3/uL Normal 0.00-0.20 [facility] Comment on above: Performed By: #### L [id number] #### [facility] ([facility]) [address] [place] [address] BASOPHILS/100 LEUKOCYTES IN BLOOD BY AUTOMATED COUNT 0.2 % Normal 0.0-1.0 [facility] Comment on above: Performed By: #### L [id number] #### [facility] ([facility]) [address] [place] [id number] EOSINOPHILS (10*3/UL) IN BLOOD BY CALCULATION 0.06 10*3/uL Normal 0.00-0.50 [facility] Comment on above: Performed By: #### L [id number] #### [facility] ([facility]) [address] [place] [id number] EOSINOPHILS/100 LEUKOCYTES I N BLOOD BY AUTOMATED COUNT 1.3 % Normal 0.0-6.0 [facility] Comment on above: Performed By: #### L [id number] #### [facility] ([facility]) [address] [place] [address] HYPOCHROMIA (PRESENCE) IN BL OOD BY LIGHT MICROSCOPY Slight Normal [facility] Comment on above: Performed By: #### L [id number] #### [facility] ([facility]) [address] [place] [id number] IMMATURE GRANULOCYTES (10*3/UL) IN BLOOD BY CALCULATION 0.01 10*3/uL Normal 0.00-0.20 [facility] Comment on above: Performed By: #### L [id number] #### [facility] ([facility]) [address] [place] [address] IMMATURE GRANULOCYTES/100 LEUKOCYTES IN BLOOD BY AUTOMATED COUNT 0.2 % Normal 0.0-1.0 [facility] Comment on above: Performed By: #### L [id number] #### [facility] ([facility] [address] [place] [id number] LYMPHOCYTES (10*3/UL) IN BLOOD BY CALCULATION 1.36 10*3/uL Normal 1.20-4.00 [facility] Comment on above: Performed By: #### L [id number] #### [facility] ([facility] [address] [place] [id number] LYMPHOCYTES/100 LEUKOCYTES I N BLOOD BY AUTOMATED COUNT 29.2 % Normal 20.0-45.0 [facility] Comment on above: Performed By: #### L [id number] #### [facility] ([facility]) [address] [place] [id number] MICROCYTES (PRESENCE) IN BLO OD BY LIGHT MICROSCOPY Slight Normal [facility] Comment on above: Performed By: #### L [id number] #### [facility] ([facility]) [address] [place] [id number] MONOCYTES (10*3/UL) IN BLOOD BY CALCUATION 0.33 10*3/uL Normal 0.10-1.00 [facility] Comment on above: Performed By: #### L [id number] #### [facility] ([facility]) [address] [place] [id number] MONOCYTES/100 LEUKOCYTES IN BLOOD BY AUTOMATED COUNT 7.1 % Normal 5.0-12.0 [facility] Comment on above: Performed By: #### L [id number] #### [facility] ([facility]) [address] [place] [id number] NEUTROPHILS (10*3/UL) IN BLO OD BY CALCULATION 2.9 10*3/uL Normal 1.6-7.6 [facility] Comment on above: Performed By: #### L [id number] #### [facility] ([facility]) [address] [place] [id number] NEUTROPHILS/100 LEUKOCYTES I N BLOOD BY AUTOMATED COUNT 62.0 % Normal 40.0-72.0 [facility] Comment on above: Performed By: #### L [id number] #### [facility] ([facility] [address] [place] [address] POIKILOCYTOSIS (PRESENCE) IN BLOOD BY LIGHT MICROSCOPY Slight Normal [facility] Comment on above: Performed By: #### L [id number] #### [facility] ([facility] [address] [place] [address] POLYCHROMASIA IN BLOOD BY LI GHT MICROSCOPY Slight Normal [facility] Comment on above: Performed By: #### L [id number] #### [facility] ([facility]) [address] [place] [address] MRSA/MSSA DNA NASALon 2022 MRSA DNA Negative Normal Negative [facility] Comment on above: Order Comment: Testi ng [...] preclude nasal colonization. Performed By: #### L [id number] #### [facility] ([facility]) [address] [place] [address] MSSA DNA Negative Normal Negative [facility] Comment on above: Order Comment: Testi ng [...] preclude nasal colonization. Performed By: #### L [id number] #### [facility] ([facility]) [address] [place] [address] Orders Onlyon 04-15-2023 Orders Only [id number] Madyson Moore 1980 F Date Provider Department [place] 04/15/2023 RUKHSANA ESPINOZA MP PAIN Medical Pavi Family History Problem Relation Age of Onset Brain cancer Mother Breast cancer Sister Kidney cancer Maternal Grandmother Prostate cancer Paternal Grandfather Cancer Father Cancer Sister Family Status - Relation Status Age at Mother Sister Maternal Grandmother Paternal Grandfather Father Sister Normal [facility] PROTIME-INRon 04-15-2023 INR IN PPP BY COAGULATION ASSAY 0.99 Normal 0.90 -1.10 [facility] Comment on above: Result Comment: ACCCP RECOMMENDED INR FO R WARFARIN THERAPY CONDITION [...] RANGE. CHEST 1995;108:[id number]. Performed By: #### L [id number] #### [facility] ([facility]) [address] [place] [address] PROTHROMBIN TIME (PT) IN PPP BY COAGULATION ASSAY 13.1 Seconds Normal 12.3-14.8 [facility] Comment on above: Performed By: #### L [id number] #### [facility] ([facility]) [address] [place] [address] Follow-Upon 03-17-2023 Follow-Up [id number] Madyson Moore 1980 F Date Provider Department Center 03/17/2023 Abby-RUKHSANA MILLER MP PAIN Medical Pavi Family History Problem Relation Age of Onset Brain cancer Mother Breast cancer Sister Kidney cancer Maternal Grandmother Prostate cancer Paternal Grandfather Cancer Father Cancer Sister Family Status - Relation Status Age at Mother Sister Maternal Grandmother Paternal Grandfather Father Sister Level of Service:15126 NC OFFICE/OUTPATIENT ESTABLISHED LOW MDM 20-29 MIN Reason for Visit and Comments: Follow-up [[id number]] Normal [facility] Orders Onlyon 03-05-2023 Orders Only [id number] Madyson Moore ma 1980 F Date Provider Department Center 03/05/2023 Woody-ARJUN MINER MP PROC Medical Pavi Family History Problem Relation Age of Onset Brain cancer Mother Breast cancer Sister Kidney cancer Maternal Grandmother Prostate cancer Paternal Grandfather Cancer Father Cancer Sister Family Status - Relation Status Age at Mother Sister Maternal Grandmother Paternal Grandfather Father Sister [facility] Follow-Upon 02-18-2023 Follow-Up [id number] Madyson Moore ma 1980 F Date Provider Department Center 02/18/2023 RUKHSANA ESPINOZA MP PAIN Medical Pavi Family History Problem Relation Age of Onset Brain cancer Mother Breast cancer Sister Kidney cancer Maternal Grandmother Prostate cancer Paternal Grandfather Cancer Father Cancer Sister Family Status - Relation Status Age at Mother Sister Maternal Grandmother Paternal Grandfather Father Sister Level of Service:23393 NC OFFICE/OUTPATIENT ESTABLISHED LOW MDM 20-29 MIN Reason for Visit and Comments: Follow-up [[id number]] - LEAD PULL [facility] HPon 02-11-2023 HP History Of Present I guanako Moore is a 42 y.o. female presenting [...] which was unremarkable. 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 Past History of Treatments: Patient has tried other professional care of: OPPT (last performed in 07/2022) Trialed medications: Ibuprofen Current Medications for Associated Pain: Pollok 5/325, Amitriptyline 50 qhs Procedures performed previously: [...] Tye Shearn Cancer Sister January Dayanara Allergies Compazine [prochlorperazine], Desonide, Toradol [ketorolac], and [...] strength exam (more content not included)... Normal [facility] BASIC METABOLIC PANELon 05-0 Anion gap [Moles/Vol] 10 mmol/L Normal 7-20 [facility] Comment on above: Performed By: #### L [id number] #### [facility] ([facility]) [address] [place] [address] Calcium [Mass/Vol] 8.8 mg/dL Normal 8.6-10.3 [facility] Comment on above: Performed By: #### L [id number] #### [facility] ([facility] [address] [place] [address] Chloride [Moles/Vol] 106 mmol/L Normal 98-107 [facility] Comment on above: Performed By: #### L [id number] #### [facility] ([facility]) [address] [place] [address] CO2 [Moles/Vol] 29 mmol/L Normal 21-31 [facility] Comment on above: Performed By: #### L [id number] #### [facility] ([facility]) [address] [place] [address] Creatinine [Mass/Vol] 0.72 mg/dL Normal 0.60-1.20 [facility] Comment on above: Performed By: #### L [id number] #### [facility] ([facility]) [address] [place] [address] GLOMERULAR FILTRATION RATE ML/MIN/1.73 SQ M.PREDICTED 107.7 mL/min/1.73m*2 Normal >60.0 [facility] Comment on above: Result Comment: [facility]???s estimated glomerular filtration rate (eGFR) will no [...] group of individuals. Performed By: #### L [id number] #### [facility] ([facility]) [address] [place] [address] Glucose [Mass/Vol] 65 mg/dL Low 70-100 [facility] Comment on above: Performed By: #### L [id number] #### [facility] ([facility]) [address] [place] [address] Potassium [Moles/Vol] 4.1 mmol/L Normal 3.5-5.1 [facility] Comment on above: Performed By: #### L [id number] #### [facility] ([facility]) [address] [place] [address] Sodium [Moles/Vol] 141 mmol/L Normal 136-145 [facility] Comment on above: Performed By: #### L [id number] #### [facility] ([facility]) [address] [place] [address] Urea nitrogen [Mass/Vol] 13 mg/dL Normal 7-25 [facility] Comment on above: Performed By: #### L [id number] #### [facility] ([facility]) [address] [place] [address] UREA NITROGEN/CREATININE (MA SS RATIO) IN SER/PLAS 18.1 Normal [facility] Comment on above: Performed By: #### L [id number] #### [facility] ([facility]) [address] [place] [address] CBCon 02-08-2023 Erythrocyte distribution wid th (RBC) [Ratio] 17.0 % High 11.5-15.0 [facility] Comment on above: Performed By: #### L [id number] ####[facility] ([facility])[address] [place] [address] ERYTHROCYTE MEAN CORPUSCULAR HEMOGLOBIN CONCENTRATION (G/DL) BY AUTOMATED 28.3 g/dL Low 32.0-35.0 [facility] Comment on above: Performed By: #### L [id number] ####[facility] ([facility])[address] [place] [address] Hematocrit (Bld) [Volume fraction] 31.8 % Low 36.0-48.0 [facility] Comment on above: Performed By: #### L [id number] ####[facility] ([facility])[address] [place] [id number] Hemoglobin (Bld) [Mass/Vol] 9.0 g/dL Low 12.0-15. 0 [facility] Comment on above: Performed By: #### L [id number] ####[facility] ([facility])[address] [place] [address] MCH (RBC) [Entitic mass] 19.9 pg Low 27.0-33.0 [facility] Comment on above: Performed By: #### L [id number] ####[facility] ([facility])[address] [place] [address] MCV (RBC) [Entitic vol] 70.4 fL Low 82.0-98.0 [facility] Comment on above: Performed By: #### L [id number] ####[facility] ([facility])[address] [place] [id number] PLATELETS (10*3/UL) IN BLOOD AUTOMATED COUNT 259 10*3/uL Normal 150-400 [facility] Comment on above: Performed By: #### L [id number] ####[facility] ([facility])[address] [place] [id number] RBC (Bld) [#/Vol] 4.52 10*6/uL Normal 3.80-5.00 [facility] Comment on above: Performed By: #### L [id number] ####[facility] ([facility])[address] [place] [id number] WBC (Bld) [#/Vol] 5.59 10*3/uL Normal 4.00-10.60 [facility] Comment on above: Performed By: #### L [id number] ####[facility] ([facility])[address] [place] [address] Labon 02-08-2023 Lab [id number] Madyson Moore 1980 F Date Provider Department Center 02/08/2023 2244-[facility] MP LAB RESOURCE MP DRAW Medical Pavi Family History Problem Relation Age of Onset Brain cancer Mother Breast cancer Sister Kidney cancer Maternal Grandmother Prostate cancer Paternal Grandfather Cancer Father Cancer Sister Family Status - Relation Status Age at Mother Sister Maternal Grandmother Paternal Grandfather Father Sister Normal [facility] MRSA/MSSA DNA NASALon 2022 MRSA DNA Negative Normal Negative [facility] Comment on above: Performed By: #### L [id number] ####[facility] ([facility])[address] [place] [address] MSSA DNA Negative Normal Negative [facility] Comment on above: Performed By: #### L [id number] ####[facility] ([facility])[address] [place] [address] Orders Onlyon 01-29-2023 Orders Only [id number] Madyson Moore ma 1980 F Date Provider Department Center 01/29/2023 RUKHSANA ESPINOZA MP PAIN Medical Pavi Family History Problem Relation Age of Onset Brain cancer Mother Breast cancer Sister Kidney cancer Maternal Grandmother Prostate cancer Paternal Grandfather Cancer Father Cancer Sister Family Status - Relation Status Age at Mother Sister Maternal Grandmother Paternal Grandfather Father Sister Normal [facility] AMYLASEon 01-25-2023 Amylase [Catalytic activity/Vol] 64 U/L Normal 25- 115 [facility] Comment on above: Performed By: #### B MP, LIPA, YVETTE, LIVER #### [facility] [address] [address] [address] Idania Roldan CBC AUTO DIFFon 01-25-2023 BASO # 0.0 103/ul Normal 0.0-0.1 [facility] Comment on above: Performed By: #### B MP, LIPA, YVETTE, LIVER #### [facility] [address] [address] [address] Idania Roldan Basophils/100 WBC (Bld) 0.3 % Normal 0.2-2.0 [facility] Comment on above: Performed By: #### B MP, LIPA, YVETTE, LIVER #### [facility] [address] [address] [address] Idania Roldan EO # 0.1 103/ul Normal 0.0-0.[address] [facility] Comment on above: Performed By: #### B MP, LIPA, YVETTE, LIVER #### [facility] [address] [place] [address] Dr. Idania Roldan Eosinophils/100 WBC (Bld) 1.0 % Normal 0.9-7.0 [facility] Comment on above: Performed By: #### B MP, LIPA, YVETTE, LIVER #### [facility] [address] [place] [address] Dr. Idania Roldan Erythrocyte distribution wid th (RBC) [Ratio] 17.2 % Critically high 11.0-15.0 [facility] Comment on above: Performed By: #### B MP, LIPA, YVETTE, LIVER #### [facility] [address] [place] [address] Dr. Idania Roldan Hematocrit (Bld) [Volume fraction] 33.9 % Critically low 36.0-48.0 [facility] Comment on above: Performed By: #### B MP, LIPA, YVETTE, LIVER #### [facility] [address] [place] [address] Dr. Idania Roldan Hemoglobin (Bld) [Mass/Vol] 10.1 g/dL Critically low 12.0 -16.0 [facility] Comment on above: Performed By: #### B MP, LIPA, YVETTE, LIVER #### [facility] [address] [place] [address] Dr. Idania Roldan IG # 0.01 10e3/ul Normal 0.00-0.03 [facility] Comment on above: Performed By: #### B MP, LIPA, YVETTE, LIVER #### [facility] [address] [place] [address] Dr. Idania Roldan IG % 0.2 % Normal 0.0-0.[address] [facility] Comment on above: Performed By: #### B MP, LIPA, YVETTE, LIVER #### [facility] [address] [place] [address] Dr. Idania Roldan LYMPH # 1.7 103/ul Normal 1.2-3.[address] [facility] Comment on above: Performed By: #### B MP, LIPA, YVETTE, LIVER #### [facility] [address] [place] [address] Dr. Idania Roldan Lymphocytes/100 WBC (Bld) 27.9 % Normal 20.5-60.0 [facility] Comment on above: Performed By: #### B MP, LIPA, YVETTE, LIVER #### [facility] [address] [place] [address] Dr. Idania Roldan MANUAL DIFF REQ NO Normal [facility] Comment on above: Performed By: #### B MP, LIPA, YVETTE, LIVER #### [facility] [address] [place] [address] Dr. Idania Roldan MCH (RBC) [Entitic mass] 20.7 pg Critically low 26.7-34 .0 [facility] Comment on above: Performed By: #### B MP, LIPA, YVETTE, LIVER #### [facility] [address] [place] [address] Dr. Idania Roldan MCHC (RBC) [Mass/Vol] 29.8 g/dL Critically low 29.9-35.2 [facility] Comment on above: Performed By: #### B MP, LIPA, YVETTE, LIVER #### [facility] [address] [place] [address] Dr. Idania Roldan MCV (RBC) [Entitic vol] 69.6 fL Critically low 81.0-99. 0 [facility] Comment on above: Performed By: #### B MP, LIPA, YVETTE, LIVER #### [facility] [address] [place] [address] Dr. Idania Roldan MONO # 0.4 103/ul Normal 0.3-0.8 [facility] Comment on above: Performed By: #### B MP, LIPA, YVETTE, LIVER #### [facility] [address] [place] [address] Dr. Idania Roldan Monocytes/100 WBC (Bld) 7.1 % Normal 1.7-12.0 [facility] Comment on above: Performed By: #### B MP, LIPA, YVETTE, LIVER #### [facility] [address] [place] [address] Dr. Idania Roldan NEUT # 3.8 103/ul Normal 1.4-6.[address] [facility] Comment on above: Performed By: #### B MP, LIPA, YVETTE, LIVER #### [facility] [address] [place] [address] Dr. Idania Roldan Neutrophils/100 WBC (Bld) 63.5 % Normal 43.0-75.0 [facility] Comment on above: Performed By: #### B MP, LIPA, YVETTE, LIVER #### [facility] [address] [place] [address] Dr. Idania Roldan Platelet mean volume (Bld) [Entitic vol] 9.3 fL Critically low 9.5-13.5 [facility] Comment on above: Performed By: #### B MP, LIPA, YVETTE, LIVER #### [facility] [address] [place] [address] Dr. Idania Roldan PLT 294 103/ul Normal 150-[address] [facility] Comment on above: Performed By: #### B MP, LIPA, YVETTE, LIVER #### [facility] [address] [place] [address] Dr. Idania Roldan RBC 4.87 106/ul Normal 4.20-5.40 [facility] Comment on above: Performed By: #### B MP, LIPA, YVETTE, LIVER #### [facility] [address] [place] [address] Dr. Idania Roldan WBC 6.0 103/ul Normal 4.0-11.[address] [facility] Comment on above: Performed By: #### B MP, LIPA, YVETTE, LIVER #### [facility] [address] [place] [address] ABD/PELVIS WO CONon [...] and Josefa-en-Y gastric bypass. Electronically authenticated by: VEDA BOND Date: 2023-01-25 12:20 Normal [facility] ER URINE PROFILEon 3 Bilirubin Ql (U) SMALL Abnormal NEGATIVE [facility] Comment on above: Performed By: #### B MP, LIPA, YVETTE, LIVER #### [facility] [address] [place] [address] Dr. Idania Roldan Clarity (U) CLEAR Normal CLEAR [facility] Comment on above: Performed By: #### B MP, LIPA, YVETTE, LIVER #### [facility] [address] [address] [address] Idania Roldan Color (U) DK. YELLOW Normal YELLOW [facility] Comment on above: Performed By: #### B MP, LIPA, YVETTE, LIVER #### [facility] [facility] [address] [address] [address] Idania Roldan ERUAHD A micrscopic examina tion will be performed if indicated. Normal The [facility] Comment on above: Performed By: #### B MP, LIPA, YVETTE, LIVER #### [facility] [address] [place] [address] Dr. Idania Roldan Glucose Ql (U) Negative Normal NEGATIVE The [facility] Comment on above: Performed By: #### B MP, LIPA, YVETTE, LIVER #### [facility] [address] [place] [address] Dr. Idania Roldan Hemoglobin Ql (U) LARGE Abnormal NEGATIVE The [facility] Comment on above: Performed By: #### B MP, LIPA, YVETTE, LIVER #### [facility] [address] [place] [address] Dr. Idania Roldan Ketones Ql (U) TRACE Abnormal NEGATIVE The [facility] Comment on above: Performed By: #### B MP, LIPA, YVETTE, LIVER #### [facility] [address] [place] [address] Dr. Idania Roldan LEUKOCYTES Negative Normal NEGATIVE The [facility] Comment on above: Performed By: #### B MP, LIPA, YVETTE, LIVER #### [facility] [address] [place] [address] Dr. Idania Roldan Nitrite Ql (U) Negative Normal NEGATIVE The [facility] Comment on above: Performed By: #### B MP, LIPA, YVETTE, LIVER #### [facility] [address] [place] [address] Dr. Idania Roldan pH (U) 5.0 [pH] Normal 5-9 [facility] Comment on above: Performed By: #### B MP, LIPA, YVETTE, LIVER #### [facility] [address] [place] [address] Dr. Idania Roldan SPEC GRAVITY >=1.030 Abnormal 1.005-<=1.025 The [facility] Comment on above: Performed By: #### B MP, LIPA, YVETTE, LIVER #### [facility] [address] [place] [address] Dr. Idania Roldan UA PROTEIN TRACE Normal NEGATIVE/ TRACE The [facility] Comment on above: Performed By: #### B MP, LIPA, YVETTE, LIVER #### [facility] [address] [place] [address] Dr. Idania Roldan UR MICRO IND INDICATED Normal The [facility] Comment on above: Performed By: #### B MP, LIPA, YVETTE, LIVER #### [facility] [address] [place] [address] Dr. Idania Roldan Urobilinogen Qn (U) 0.2 {Bryan'U}/dL Normal 0.2 - 1. 0 [facility] Comment on above: Performed By: #### B MP, LIPA, YVETTE, LIVER #### [facility] [address] [place] [address] Dr. Idania Roldan LIPASEon 01-25-2023 Lipase [Catalytic activity/Vol] 226.0 U/L Normal 73.0 -393.0 [facility] Comment on above: Performed By: #### B MP, LIPA, YVETTE, LIVER #### [facility] [address] [place] [address] Dr. Idania Roldan LIVER PROFILEon 01-25-2023 Albumin [Mass/Vol] 4.1 g/dL Normal 3.4-5.0 [facility] Comment on above: Performed By: #### B MP, LIPA, YVETTE, LIVER #### [facility] [address] [place] [address] Dr. Idania Roldan Albumin/Globulin [Mass ratio] 0.9 {ratio} Normal [facility] Comment on above: Performed By: #### B MP, LIPA, YVETTE, LIVER #### [facility] [address] [place] [address] Dr. Idania Roldan ALP [Catalytic activity/Vol] 110 U/L Normal 46-116 The [facility] Comment on above: Performed By: #### B MP, LIPA, YVETTE, LIVER #### [facility] [address] [place] [address] Dr. Idania Roldan ALT [Catalytic activity/Vol] 20 U/L Normal 14-59 [facility] Comment on above: Performed By: #### B MP, LIPA, YVETTE, LIVER #### [facility] [address] [place] [address] Dr. Idania Roldan AST [Catalytic activity/Vol] 11 U/L Critically low 15- 37 [facility] Comment on above: Performed By: #### B MP, LIPA, YVETTE, LIVER #### [facility] [address] [place] [address] Dr. Idania Roldan BILI, CONJUGATED 0.1 mg/dL Normal 0.0-0.2 [facility] Comment on above: Performed By: #### B MP, LIPA, YVETTE, LIVER #### [facility] [address] [place] [address] Dr. Idania Roladn Bilirubin [Mass/Vol] 0.3 mg/dL Normal 0.2-1.0 [facility] Comment on above: Performed By: #### B MP, LIPA, YVETTE, LIVER #### [facility] [address] [place] [address] Dr. Idania Roldan Globulin (S) [Mass/Vol] 4.4 g/dL Normal [facility] Comment on above: Performed By: #### B MP, LIPA, YVETTE, LIVER #### [facility] [address] [place] [address] Dr. Idania Roldan Protein [Mass/Vol] 8.5 g/dL Critically high 6.4-8.2 [facility] Comment on above: Performed By: #### B MP, LIPA, YVETTE, LIVER #### [facility] [address] [place] [address] Dr. Idania Roldan PROF CHEM 8 (BAS METB)on Anion gap [Moles/Vol] 13.5 mmol/L Normal [facility] Comment on above: Performed By: #### B MP, LIPA, YVETTE, LIVER #### [facility] [address] [place] [address] Dr. Idania Roldan Calcium [Mass/Vol] 9.3 mg/dL Normal 8.5-10.1 [facility] Comment on above: Performed By: #### B MP, LIPA, YVETTE, LIVER #### [facility] [address] [place] [address] Dr. Idania Roldan Chloride [Moles/Vol] 105 mmol/L Normal 98-107 [facility] Comment on above: Performed By: #### B MP, LIPA, YVETTE, LIVER #### [facility] [address] [address] [address] Idania Roldan CO2 [Moles/Vol] 27.2 mmol/L Normal 21.0-32.0 The [facility] Comment on above: Performed By: #### B MP, LIPA, YVETTE, LIVER #### [facility] [address] [place] [address] Dr. Idania Roldan Creatinine [Mass/Vol] 0.74 mg/dL Normal 0.55-1.02 [facility] Comment on above: Performed By: #### B MP, LIPA, YVETTE, LIVER #### [facility] [address] [place] [address] Dr. Idania Roldan EGFR-AF CYPRIOT >60 Normal >=60 The [facility] Comment on above: Performed By: #### B MP, LIPA, YVETTE, LIVER #### [facility] [address] [place] [address] Dr. Idania Roldan EGFR-NON AF CYPRIOT >60 Normal >=60 [facility] Comment on above: Performed By: #### B MP, LIPA, YVETET, LIVER #### [facility] [address] [place] [address] Dr. Idania Roldan Glucose [Mass/Vol] 97 mg/dL Normal 74-106 [facility] Comment on above: Performed By: #### B MP, LIPA, YVETTE, LIVER #### [facility] [address] [place] [address] Dr. Idania Roldan Potassium [Moles/Vol] 3.7 mmol/L Normal 3.5-5.1 The [facility] Comment on above: Performed By: #### B MP, LIPA, YVETTE, LIVER #### [facility] [address] [place] [address] Dr. Idania Roldan Sodium [Moles/Vol] 142 mmol/L Normal 136-145 [facility] Comment on above: Performed By: #### B MP, LIPA, YVETTE, LIVER #### [facility] [address] [place] [address] Dr. Idania Roldan Urea nitrogen [Mass/Vol] 13.0 mg/dL Normal 7.0-18.0 [facility] Comment on above: Performed By: #### B MP, LIPA, YVETTE, LIVER #### [facility] [address] [address] [address] Idania Roldan Urea nitrogen/Creatinine [Mass ratio] 17.6 mg/mg Normal The [facility] Comment on above: Performed By: #### B MP, LIPA, YVETTE, LIVER #### [facility] [address] [place] [address] Dr. Idania Roldan URINE MICROSCOPIC ONLYon BACTERIA NONE SEEN Normal NONE SEEN [facility] Comment on above: Performed By: #### B MP, LIPA, YVETTE, LIVER #### [facility] [address] [place] [address] Dr. Idania Roldan Bacteria identified Cx Nom (U) NOT INDICATED Normal The [facility] Comment on above: Performed By: #### B MP, LIPA, YVETTE, LIVER #### [facility] [address] [place] [address] Dr. Idania Roldan CAST NONE SEEN Normal NONE SEEN The [facility] Comment on above: Performed By: #### B MP, LIPA, YVETTE, LIVER #### [facility] [address] [place] [address] Dr. Idania Roldan Crystals LM Nom (Urine sed) NONE SEEN Normal NONE SEE N The [facility] Comment on above: Performed By: #### B MP, LIPA, YVETTE, LIVER #### [facility] [address] [place] [address] Dr. Idania Roldan Epithelial cells LM Ql (Urine sed) FEW Abnormal N ONE SEEN /RARE The [facility] Comment on above: Performed By: #### B MP, LIPA, YVETTE, LIVER #### [facility] [address] [place] [address] Dr. Idania Roldan MUCOUS NONE SEEN Normal NONE SEEN The [facility] Comment on above: Performed By: #### B MP, LIPA, YVETTE, LIVER #### [facility] [address] [place] [address] Dr. Idania Roldan RBC (U) [#/Vol] /uL Abnormal 0-2 [facility] Comment on above: Performed By: #### B MP, LIPA, YVETTE, LIVER #### [facility] [address] [place] [address] Dr. Idania Roldan WBC NONE SEEN Normal NONE SEEN The [facility] Comment on above: Performed By: #### B MP, LIPA, YVETTE, LIVER #### [facility] [address] [place] [address] Dr. Idania Roldan XR KUB 1 VIEWon [...] by: DENILSON AUSTIN Date: 2023-01-24 19:51 Normal [facility] AMYLASEon 01-21-2023 Amylase [Catalytic activity/Vol] 64 U/L Normal 25- 115 [facility] Comment on above: Performed By: #### P T, PTT #### [facility] [address] [place] [address] Dr. Idania Roldan CBC AUTO DIFFon 01-21-2023 BASO # 0.0 103/ul Normal 0.0-0.[address] [facility] Comment on above: Performed By: #### B MP, LIPA, YVETTE, LIVER #### [facility] [address] [place] [address] Dr. Idania Roldan Basophils/100 WBC (Bld) 0.2 % Normal 0.2-2.0 T [facility] Comment on above: Performed By: #### B MP, LIPA, YVETTE, LIVER #### [facility] [address] [place] [address] Dr. Idania Roldan EO # 0.1 103/ul Normal 0.0-0.[address] [facility] Comment on above: Performed By: #### B MP, LIPA, YVETTE, LIVER #### [facility] [address] [place] [address] Dr. Idania Roldan Eosinophils/100 WBC (Bld) 0.9 % Normal 0.9-7.0 The [facility] Comment on above: Performed By: #### B MP, LIPA, YVETTE, LIVER #### [facility] [address] [place] [address] Dr. Idania Roldan Erythrocyte distribution wid th (RBC) [Ratio] 17.2 % Critically high 11.0-15.0 The [facility] Comment on above: Performed By: #### B MP, LIPA, YVETTE, LIVER #### [facility] [address] [place] [address] Dr. Idania Roldan Hematocrit (Bld) [Volume fraction] 32.5 % Critically low 36.0-48.0 The [facility] Comment on above: Performed By: #### B MP, LIPA, YVETTE, LIVER #### [facility] [address] [place] [address] Dr. Idania Roldan Hemoglobin (Bld) [Mass/Vol] 9.5 g/dL Critically low 12.0 -16.0 The [facility] Comment on above: Performed By: #### B MP, LIPA, YVETTE, LIVER #### [facility] [address] [place] [address] Dr. Idania Roldan IG # 0.01 10e3/ul Normal 0.00-0.03 The [facility] Comment on above: Performed By: #### B MP, LIPA, YVETTE, LIVER #### [facility] [address] [place] [address] Dr. Idania Roldan IG % 0.2 % Normal 0.0-0.[address] [facility] Comment on above: Performed By: #### B MP, LIPA, YVETTE, LIVER #### [facility] [address] [place] [address] Dr. Idania Roldan LYMPH # 2.0 103/ul Normal 1.2-3.[address] [facility] Comment on above: Performed By: #### B MP, LIPA, YVETTE, LIVER #### [facility] [address] [place] [address] Dr. Idania Roldan Lymphocytes/100 WBC (Bld) 34.7 % Normal 20.5-60.0 The [facility] Comment on above: Performed By: #### B MP, LIPA, YVETTE, LIVER #### [facility] [address] [place] [address] Dr. Idania Roldan MANUAL DIFF REQ NO Normal [facility] Comment on above: Performed By: #### B MP, LIPA, YVETTE, LIVER #### [facility] [address] [place] [address] Dr. Idania Roldan MCH (RBC) [Entitic mass] 20.5 pg Critically low 26.7-34 .0 The [facility] Comment on above: Performed By: #### B MP, LIPA, YVETTE, LIVER #### [facility] [address] [place] [address] Dr. Idania Roldan MCHC (RBC) [Mass/Vol] 29.2 g/dL Critically low 29.9-35.2 The [facility] Comment on above: Performed By: #### B MP, LIPA, YVETTE, LIVER #### [facility] [address] [place] [address] Dr. Idania Roldan MCV (RBC) [Entitic vol] 70.2 fL Critically low 81.0-99. 0 The [facility] Comment on above: Performed By: #### B MP, LIPA, YVETTE, LIVER #### [facility] [address] [place] [address] Dr. Idania Roldan MONO # 0.5 103/ul Normal 0.3-0.[address] [facility] Comment on above: Performed By: #### B MP, LIPA, YVETTE, LIVER #### [facility] [address] [place] [address] Dr. Idania Roldan Monocytes/100 WBC (Bld) 8.7 % Normal 1.7-12.0 [facility] Comment on above: Performed By: #### B MP, LIPA, YVETTE, LIVER #### [facility] [address] [address] [address] Idania Roldan NEUT # 3.2 103/ul Normal 1.4-6.[address] [facility] Comment on above: Performed By: #### B MP, LIPA, YVETTE, LIVER #### [facility] [address] [address] [address] Idania Roldan Neutrophils/100 WBC (Bld) 55.3 % Normal 43.0-75.0 [facility] Comment on above: Performed By: #### B MP, LIPA, YVETTE, LIVER #### [facility] [address] [place] [address] Dr. Idania Roldan Platelet mean volume (Bld) [Entitic vol] 9.7 fL Normal 9.5-13.5 [facility] Comment on above: Performed By: #### B MP, LIPA, YVETTE, LIVER #### [facility] [address] [address] [address] Idania Roldan PLT 310 103/ul Normal 150-[address] [facility] Comment on above: Performed By: #### B MP, LIPA, YVETTE, LIVER #### [facility] [address] [place] [address] Dr. Idania Roldan RBC 4.63 106/ul Normal 4.20-5.40 The [facility] Comment on above: Performed By: #### B MP, LIPA, YVETTE, LIVER #### [facility] [address] [address] [address] Idania Roldan WBC 5.8 103/ul Normal 4.0-11.[address] [facility] Comment on above: Performed By: #### B MP, LIPA, YVETTE, LIVER #### [facility] [address] [address] [address] Idania Roldan CULTURE URINEon 01-21-2023 CULTURE URINE Culture Observations : MODERATE GROWTH OF MIXED GENITAL ALE. NO POTENTIAL PATHOGENS SEEN. Normal The [facility] Comment on above: Performed By: #### P T, PTT #### [facility] [address] [place] [address] Dr. Idania Roldan LIPASEon 01-21-2023 Lipase [Catalytic activity/Vol] 251.0 U/L Normal 73.0 -393.0 [facility] Comment on above: Performed By: #### P T, PTT #### [facility] [address] [place] [address] Dr. Idania Roldan PROF 14(COMP METB)on 023 Albumin [Mass/Vol] 3.8 g/dL Normal 3.4-5.0 [facility] Comment on above: Performed By: #### P T, PTT #### [facility] [address] [place] [address] Dr. Idania Roldan Albumin/Globulin [Mass ratio] 1.0 {ratio} Normal [facility] Comment on above: Performed By: #### P T, PTT #### [facility] [address] [place] [address] Dr. Idania Roldan ALP [Catalytic activity/Vol] 107 U/L Normal 46-116 [facility] Comment on above: Performed By: #### P T, PTT #### [facility] [address] [place] [address] Dr. Idania Roldan ALT [Catalytic activity/Vol] 17 U/L Normal 14-59 [facility] Comment on above: Performed By: #### P T, PTT #### [facility] [address] [place] [address] Dr. Idania Roldan Anion gap [Moles/Vol] 13.3 mmol/L Normal [facility] Comment on above: Performed By: #### P T, PTT #### [facility] [address] [place] [address] Dr. Idania Roldan AST [Catalytic activity/Vol] 9 U/L Critically low 15- 37 [facility] Comment on above: Performed By: #### P T, PTT #### [facility] [address] [address] [address] Idania Roldan Bilirubin [Mass/Vol] 0.3 mg/dL Normal 0.2-1.0 [facility] Comment on above: Performed By: #### P T, PTT #### [facility] [address] [address] [address] Idania Roldan Calcium [Mass/Vol] 9.0 mg/dL Normal 8.5-10.1 [facility] Comment on above: Performed By: #### P T, PTT #### [facility] [address] [place] [address] Dr. Idania Roldan Chloride [Moles/Vol] 103 mmol/L Normal 98-107 [facility] Comment on above: Performed By: #### P T, PTT #### [facility] [address] [place] [address] Dr. Idania Roldan CO2 [Moles/Vol] 28.2 mmol/L Normal 21.0-32.0 [facility] Comment on above: Performed By: #### P T, PTT #### [facility] [address] [place] [address] Dr. Idania Roldan Creatinine [Mass/Vol] 0.81 mg/dL Normal 0.55-1.02 [facility] Comment on above: Performed By: #### P T, PTT #### [facility] [address] [place] [address] Dr. Idania Roldan EGFR-AF CYPRIOT >60 Normal >=60 [facility] Comment on above: Performed By: #### P T, PTT #### [facility] [address] [place] [address] Dr. Idania Roldan EGFR-NON AF CYPRIOT >60 Normal >=60 [facility] Comment on above: Performed By: #### P T, PTT #### [facility] [address] [place] [address] Dr. Idania Roldan Globulin (S) [Mass/Vol] 3.9 g/dL Normal T [facility] Comment on above: Performed By: #### P T, PTT #### [facility] [address] [address] [address] Idania Roldan Glucose [Mass/Vol] 93 mg/dL Normal 74-106 [facility] Comment on above: Performed By: #### P T, PTT #### [facility] [address] [place] [address] Dr. Idania Roldan Potassium [Moles/Vol] 3.5 mmol/L Normal 3.5-5.1 [facility] Comment on above: Performed By: #### P T, PTT #### [facility] [address] [place] [address] Dr. Idania Roldan Protein [Mass/Vol] 7.7 g/dL Normal 6.4-8.2 [facility] Comment on above: Performed By: #### P T, PTT #### [facility] [address] [place] [address] Dr. Idania Roldan Sodium [Moles/Vol] 141 mmol/L Normal 136-145 [facility] Comment on above: Performed By: #### P T, PTT #### [facility] [address] [place] [address] Dr. Idania Roldan Urea nitrogen [Mass/Vol] 11.0 mg/dL Normal 7.0-18.0 The [facility] Comment on above: Performed By: #### P T, PTT #### [facility] [address] [place] [address] Dr. Idania Roldan Urea nitrogen/Creatinine [Mass ratio] 13.6 mg/mg Normal The [facility] Comment on above: Performed By: #### P T, PTT #### [facility] [address] [place] [address] Dr. Idania Roldan UA RANDOM W/MICROSCOPICon BACTERIA SMALL Abnormal NONE SEEN [facility] Comment on above: Performed By: #### B MP, LIPA, YVETTE, LIVER #### [facility] [address] [place] [address] Dr. Idania Roldan Bilirubin Ql (U) SMALL Abnormal NEGATIVE [facility] Comment on above: Performed By: #### B MP, LIPA, YVETTE, LIVER #### [facility] [address] [address] [address] Idania Roldan CAST NONE SEEN Normal NONE SEEN [facility] Comment on above: Performed By: #### B MP, LIPA, YVETTE, LIVER #### [facility] [address] [place] [address] Dr. Idania Roldan Clarity (U) CLEAR Normal CLEAR The [facility] Comment on above: Performed By: #### B MP, LIPA, YVETTE, LIVER #### [facility] [address] [address] [address] Idania Roldan Color (U) DK. YELLOW Normal YELLOW [facility] Comment on above: Performed By: #### B MP, LIPA, YVETTE, LIVER #### [facility] [address] [place] [address] Dr. Idania Roldan Crystals LM Nom (Urine sed) NONE SEEN Normal NONE SEE N The [facility] Comment on above: Performed By: #### B MP, LIPA, YVETTE, LIVER #### [facility] [address] [place] [address] Dr. Idania Roldan Epithelial cells LM Ql (Urine sed) FEW Abnormal N ONE SEEN /RARE The [facility] Comment on above: Performed By: #### B MP, LIPA, YVETTE, LIVER #### [facility] Laboratory [address] [place] [address] Dr. Idania Roldan Glucose Ql (U) Negative Normal NEGATIVE The [facility] Comment on above: Performed By: #### B MP, LIPA, YVETTE, LIVER #### [facility] [address] [place] [address] Dr. Idania Roldan Hemoglobin Ql (U) LARGE Abnormal NEGATIVE The [facility] Comment on above: Performed By: #### B MP, LIPA, YVETTE, LIVER #### [facility] [address] [place] [address] Dr. Idania Roldan Ketones Ql (U) TRACE Abnormal NEGATIVE The [facility] Comment on above: Performed By: #### B MP, LIPA, YVETTE, LIVER #### [facility] [address] [place] [address] Dr. Idania Roldan LEUKOCYTES Negative Normal NEGATIVE The [facility]ital Comment on above: Performed By: #### B MP, LIPA, YVETTE, LIVER #### [facility] [address] [place] [address] Dr. Idania Roldan MUCOUS MODERATE Abnormal NONE SEEN The [facility] Comment on above: Performed By: #### B MP, LIPA, YVETTE, LIVER #### [facility] [address] [place] [address] Dr. Idania Roldan Nitrite Ql (U) Negative Normal NEGATIVE The [facility] Comment on above: Performed By: #### B MP, LIPA, YVETTE, LIVER #### [facility] [address] [place] [address] Dr. Idania Roldan pH (U) 5.0 [pH] Normal 5-[address] [facility] Comment on above: Performed By: #### B MP, LIPA, YVETTE, LIVER #### [facility] [address] [place] [address] Dr. Idania Roldan RBC (U) [#/Vol] /uL Abnormal 0-2 The [facility] Comment on above: Performed By: #### B MP, LIPA, YVETTE, LIVER #### [facility] [address] [place] [address] Dr. Idania Roldan SPEC GRAVITY >=1.030 Abnormal 1.005-<=1.025 The [facility] Comment on above: Performed By: #### B MP, LIPA, YVETTE, LIVER #### [facility] [address] [place] [address] Dr. Idania Roldan UA PROTEIN TRACE Normal NEGATIVE/ TRACE The [facility] Comment on above: Performed By: #### B MP, LIPA, YVETTE, LIVER #### [facility] [address] [place] [address] Dr. Idania Roldan Urobilinogen Qn (U) 0.2 {Bryan'U}/dL Normal 0.2 - 1. 0 The [facility] Comment on above: Performed By: #### B MP, LIPA, YVETTE, LIVER #### [facility] [address] [address] [address] Idania Roldan WBC 0-2 Abnormal NONE SEEN The [facility] Comment on above: Performed By: #### B JOSE ALBERTO MOCTEZUMA AMY, LIVER #### [facility] [address] [address] [address] Idania Roldan Follow-Upon 01-08-2023 Follow-Up [id number] Madyson Moore ma 1980 F Date Provider Department Center 01/08/2023 Abby-RUKHSANA MILLER MP PAIN [facility] Family History Problem Relation Age of Onset Brain cancer Mother Breast cancer Sister Kidney cancer Maternal Grandmother Prostate cancer Paternal Grandfather Cancer Father Cancer Sister Family Status - Relation Status Age at Mother Sister Maternal Grandmother Paternal Grandfather Father Sister Level of Service:88333 NC OFFICE/OUTPATIENT ESTABLISHED LOW MDM 20-29 MIN Reason for Visit and Comments: Follow-up [058816] - Discuss SCS next steps Normal [facility] RAD - MISCon 01-05-2023 [facility] [id number]: 127 Normal [facility] Patient Educationon 01-05-20 23 Patient Education [...] Rhubarb. ? Beets. ? Potato chips and palestinian fries. ? Nuts. ? If you regularly take a diuretic medicine, make sure to eat at least 1?2 fruits or vegetables high in potassium each day. These include: ? Avocado. ? Banana. ? [place], prune, carrot, or tomato juice. ? Baked [...] and other foods Seasoning blends with salt. Artemio hurtado (more content not included)... Normal [facility] Orders Onlyon 01-01-2023 Orders Only [id number] Madyson Moore 1980 F Date Provider Department [place] 01/01/2023 Abby-RUKHSANA MILLER [facility] Family History Problem Relation Age of Onset Brain cancer Mother Breast cancer Sister Kidney cancer Maternal Grandmother Prostate cancer Paternal Grandfather Cancer Father Cancer Sister Family Status - Relation Status Age at Mother Sister Maternal Grandmother Paternal Grandfather Father Sister Normal [facility] Follow-Upon 12-24-2022 Follow-Up [id number] Madyson Moore 1980 F Date Provider Department Center 12/24/2022 ARJUN ROSE PAIN [facility] Family History Problem Relation Age of Onset Brain cancer Mother Breast cancer Sister Kidney cancer Maternal Grandmother Prostate cancer Paternal Grandfather Cancer Father Cancer Sister Family Status - Relation Status Age at Mother Sister Maternal Grandmother Paternal Grandfather Father Sister Level of Service:38414 NC OFFICE/OUTPATIENT ESTABLISHED MOD MDM 30-39 MIN () Reason for Visit and Comments: Follow-up [417430] - S/P sympathetic nerve block it helped a couple of days brought pain level down a little before procedure pain was 7 after procedure pain was 5 or 6. The injection did help the pain for a couple days. Normal [facility] 36on 12-15-2022 36 ----- Message from Naty Hayden MA sent at 12/15/2022 1:01 PM EST ----- Regarding: FW: Concerns ----- Message ----- From: Elvi Moore Sent: 12/15/2022 7:44 AM EST To: [facility] Mp Pain Medicine Clinical Support Pool Subject: Concerns [...] my knee honestly I???m just miserable Normal [facility] Orders Onlyon 03-06-2023 Orders Only [id number] Madyson Moore 1980 F Date Provider Department Center 12/14/2022 RUKHSANA ESPINOZA PAIN [facility] Family History Problem Relation Age of Onset Brain cancer Mother Breast cancer Sister Kidney cancer Maternal Grandmother Prostate cancer Paternal Grandfather Cancer Father Cancer Sister Family Status - Relation Status Age at Mother Sister Maternal Grandmother Paternal Grandfather Father Sister Normal [facility] HPon 12-10-2022 H&P reviewed. The pa sanam was examined and there are no changes to the H&P. Normal [facility] This patient is a 41 -year-old female [...] unremarkable. 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 Past History of Treatments: Patient has tried other professional care of: OPPT (last performed in 07/2022) Trialed medications: Ibuprofen Current Medications for Associated Pain: Pollok 5/325, Amitriptyline 50 qhs Current Medications Procedures [...] does (more content not included)... [facility] 36on 12-01-2022 36 Sent to correct pharmacy, Thanks [facility] 36on 11-30-2022 36 Patient called the o ffice and stating that [facility] When looking in the patients chart it did show that it was sent to the wrong pharmacy. I took that pharmacy out of the patients chart but she needs her medication refill sent to the right pharmacy. Please advise. Thank you. [facility] Telephoneon 11-30-2022 Telephone [id number] Madyson Moore 1980 F Date Provider Department Center 11/30/2022 DENISSE PANIAGUA PAIN [facility] Family History Problem Relation Age of Onset Brain cancer Mother Breast cancer Sister Kidney cancer Maternal Grandmother Prostate cancer Paternal Grandfather Cancer Father Cancer Sister Family Status - Relation Status Age at Mother Sister Maternal Grandmother Paternal Grandfather Father Sister [facility] Office Visiton 11-24-2022 Follow-up visit [id number] Madyson Moore 1980 F Date Provider Department Center 11/24/2022 ARJUN ROSE MP PAIN [facility] Family History Problem Relation Age of Onset Brain cancer Mother Breast cancer Sister Kidney cancer Maternal Grandmother Prostate cancer Paternal Grandfather Cancer Father Cancer Sister Family Status - Relation Status Age at Mother Sister Maternal Grandmother Paternal Grandfather Father Sister Level of Service:27432 NC OFFICE/OUTPATIENT NEW MODERATE MDM 45-59 MINUTES (GC) Reason for Visit and Comments: Follow-up [602969] New Patient [632] - Knee pain, left s/p replacement May 2022 and November 01, [facility] 36on 11-23-2022 36 Keiry called patient and let her know that she has a pain management appointment for tomorrow at 8:15 am and if the pain is to bad she can go to the ER. Normal [facility] Telephoneon 11-23-2022 Telephone [id number] Madyson Moore 1980 F Date Provider Department Center 11/23/2022 YASMANY AVALOS MP ORTHO KATHRYN Family History Problem Relation Age of Onset [...] appointment tomorrow 11/24 at 810. Patient updated. [facility] Follow-Upon 11-20-2022 Follow-Up [id number] Madyson Moore 1980 F Date Provider Department Center 11/20/2022 JORDEN DEWITT MP Family History Problem Relation Age of Onset Brain cancer Mother Breast cancer Sister Kidney cancer Maternal Grandmother Prostate cancer Paternal Grandfather Cancer Father Cancer Sister Family Status - Relation Status Age at Mother Sister Maternal Grandmother Paternal Grandfather Father Sister Level of Service:37541 NC OFFICE/OUTPATIENT ESTABLISHED LOW MDM 20-29 MIN Reason for Visit and Comments: Follow-up [285053] Pain [136] [facility] Telephoneon 11-13-2022 Telephone [id number] Madyson Moore 1980 F Date Provider Department Center 11/13/2022 JORDEN DEWITT MPRTTARIK Family History Problem Relation Age of Onset Brain cancer Mother Breast cancer Sister Kidney cancer Maternal Grandmother Prostate cancer Paternal Grandfather Cancer Father Cancer Sister Family Status - Relation Status Age at Mother Sister Maternal Grandmother Paternal Grandfather Father Sister [facility] 36on 11-10-2022 36 Attempted to call aditi marion. Left VM. Will attempt call again tomorrow. Normal [facility] Orders Onlyon 11-10-2022 Orders Only [id number] LudyMadyson tilley 1980 F Date Provider Department Center 11/10/2022 YASMANY AVALOS MP Family History Problem Relation Age of Onset Brain cancer Mother Breast cancer Sister Kidney cancer Maternal Grandmother Prostate cancer Paternal Grandfather Cancer Father Cancer Sister Family Status - Relation Status Age at Mother Sister Maternal Grandmother Paternal Grandfather Father Sister [facility] Telephoneon 11-10-2022 Telephone [id number] Madyson Moore 1980 F Date Provider Department Center 11/10/2022 YASMANY AVALOS MP Family History Problem Relation Age of [...] steps were. I spoke to Jorden Brody, [employer] he stated her results were negative and that he spoke to Dr Lane and the next step is to put in a referal for pain management and physical therapy. [facility] Orders Onlyon 11-05-2022 Orders Only [id number] LudyMadyson tilley ma 1980 F Date Provider Department Center 11/05/2022 JORDEN DEWITT MPRTTARIK Family History Problem Relation Age of Onset Brain cancer Mother Breast cancer Sister Kidney cancer Maternal Grandmother Prostate cancer Paternal Grandfather Cancer Father Cancer Sister Family Status - Relation Status Age at Mother Sister Maternal Grandmother Paternal Grandfather Father Sister Normal [facility] BODY FLUID CELL DIFFERENTIAL on 11-03-2022 BASOPHILS TOTAL PER COUNTED LEUKOCYTES IN BODY FLUID BY MANUAL COUNT Normal [facility] Comment on above: Order Comment: Pleas e pull from previous right knee aspiration sample that was received on 11/03/22 Differential performed on cytospin Performed By: #### L [id number] #### [facility] ([facility]AKER) [address] [place] [address] CELLS COUNTED TOTAL (#) IN B NATALEE FLUID 100 Normal [facility] Comment on above: Order Comment: Pleas e pull from previous right knee aspiration sample that was received on 11/03/22 Differential performed on cytospin Performed By: #### L [id number] #### [facility] (BEAKER) [address] [place] [address] EOSINOPHILS TOTAL PER COUNTE D LEUKOCYTES IN BODY FLUID BY MANUAL COUNT 2 [facility] Comment on above: Order Comment: Pleas e pull from previous right knee aspiration sample that was received on 11/03/22 Differential performed on cytospin Performed By: #### L [id number] #### [facility] (BEAKER) [address] [place] [address] LYMPHOCYTES TOTAL PER COUNTE D LEUKOCYTES IN BODY FLUID BY MANUAL COUNT 36 [facility] Comment on above: Order Comment: Pleas e pull from previous right knee aspiration sample that was received on 11/03/22 Differential performed on cytospin Performed By: #### L [id number] #### [facility] (BEAKER) [address] [place] [address] MESOTHELIAL CELLS TOTAL PER COUNTED LEUKOCYTES IN BODY FLUID BY MANUAL COUN [facility] Comment on above: Order Comment: Pleas e pull from previous right knee aspiration sample that was received on 11/03/22 Differential performed on cytospin Performed By: #### L [id number] #### [facility] (BEAKER) [address] [place] [address] MONOCYTES+MACROPHAGES TOTAL PER COUNTED LEUKOCYTES IN BODY FLUID BY MANUAL 7 [facility] Comment on above: Order Comment: Pleas e pull from previous right knee aspiration sample that was received on 11/03/22 Differential performed on cytospin Performed By: #### L [id number] #### [facility] [address] [place] [address] NEUTROPHILS TOTAL PER COUNTE D LEUKOCYTES IN BODY FLUID BY MANUAL COUNT 55 Normal [facility] Comment on above: Order Comment: Pleas e pull from previous right knee aspiration sample that was received on 11/03/22 Differential performed on cytospin Performed By: #### L [id number] #### [facility] (BEAKER) [address] [place] [address] OTHER CELLS BODY FLUID (MANUAL) Normal [facility] Comment on above: Order Comment: Pleas e pull from previous right knee aspiration sample that was received on 11/03/22 Differential performed on cytospin Performed By: #### L [id number] #### [facility] ([facility]) [address] [place] [address] BODY FLUID CULTUREon 023 Bacteria identified Cx Nom (Unsp spec) No growth at [address] [facility] Comment on above: Performed By: #### L [id number] #### [facility] ([facility]) [address] [place] [address] GRAM STAIN RESULT Abnormal [facility] Comment on above: Result Comment: Many Polymorphonuclear leukocytes No organisms seen Performed By: #### L [id number] #### [facility] ([facility]) [address] [place] [address] Follow-Upon 11-03-2022 Follow-Up [id number] Madyson Moore 1980 F Date Provider Department Center 11/03/2022 KEVIN ANGELES MP ORTHO MPORTHO Family History Problem Relation Age of Onset Brain cancer Mother Breast cancer Sister Kidney cancer Maternal Grandmother Prostate cancer Paternal Grandfather Cancer Father Cancer Sister Family Status - Relation Status Age at Mother Sister Maternal Grandmother Paternal Grandfather Father Sister Level of Service:09891 NC OFFICE/OUTPATIENT ESTABLISHED LOW MDM 20-29 MIN (25) Reason for Visit and Comments: Pain [136] Normal [facility] GLUCOSE, BODY FLUIDon 2022 GLUCOSE (MG/DL) IN BODY FLUID 59 mg/dL Normal [facility] Comment on above: Result Comment: The reference range and other method performance specifications have not been established for this test in fluids. the test result should be integrated into the clinical context for interpretation. Performed By: #### L [id number] #### [facility] (BEAKER) [address] [place] [address] TYPE OF BODY FLUID Synovial Fluid [facility] Comment on above: Performed By: #### L [id number] #### [facility] (BEAKER) [address] [place] [address] PATHOLOGY REVIEWon PATHOLOGY REVIEW Electronically betty d by Juanita Porter MD on 11/09/22 at 12:05 PM. Normal [facility] Comment on above: Order Comment: Maegan moseley pull from previous right knee aspiration sample that was received on 11/03/22 Performed By: #### L [id number] ####[facility] (BEAKER)[address] [place] [address] 36on 10-30-2022 36 I would recommmedn i f pain is really bad to go to ER to discuss reaspirating the knee as we got no results from last one. If not I would like to bring her in on Wednesday or Wednesday with gehling to aspirate ourselves. Normal [facility] Reminderson 10-29-2022 Reminders - From: Pinky Velarde [...] patient will be getting imaging done @ [facility]. [facility] 36 See note above Normal [facility] BASIC METABOLIC PANELon 10-11 Anion gap [Moles/Vol] 8 mmol/L Normal 7-20 [facility] Comment on above: Performed By: #### L [id number] #### [facility] ([facility]) [address] [place] [address] Calcium [Mass/Vol] 8.7 mg/dL Normal 8.6-10.3 [facility] Comment on above: Performed By: #### L [id number] #### [facility] ([facility]) [address] [place] [address] Chloride [Moles/Vol] 105 mmol/L Normal 98-107 [facility] Comment on above: Performed By: #### L [id number] #### [facility] ([facility]) [address] [place] [address] CO2 [Moles/Vol] 26 mmol/L Normal 21-31 [facility] Comment on above: Performed By: #### L [id number] #### [facility] ([facility]) [address] [place] [address] Creatinine [Mass/Vol] 0.63 mg/dL Normal 0.60-1.20 [facility] Comment on above: Performed By: #### L [id number] #### [facility] ([facility]) [address] [place] [address] GLOMERULAR FILTRATION RATE ML/MIN/1.73 SQ M.PREDICTED 112.6 mL/min/1.73m*2 Normal >60.0 [facility] Comment on above: Result Comment: The [facility]???s estimated glomerular filtration rate (eGFR) will no [...] individuals. Performed By: #### L [id number] #### [facility] ([facility]) [address] [place] [address] Glucose [Mass/Vol] 86 mg/dL Normal 70-100 [facility] Comment on above: Performed By: #### L [id number] #### [facility] ([facility]) [address] [place] [address] Potassium [Moles/Vol] 4.3 mmol/L Normal 3.5-5.1 [facility] Comment on above: Performed By: #### L [id number] #### [facility] ([facility]) [address] [place] [address] Sodium [Moles/Vol] 139 mmol/L Normal 136-145 [facility] Comment on above: Performed By: #### L [id number] #### [facility] ([facility]) [address] [place] [address] Urea nitrogen [Mass/Vol] 15 mg/dL Normal 7-25 [facility] Comment on above: Performed By: #### L [id number] #### [facility] ([facility]) [address] [place] [address] UREA NITROGEN/CREATININE (MA SS RATIO) IN SER/PLAS 23.81 Normal [facility] Comment on above: Performed By: #### L [id number] #### [facility] ([facility]) [address] [place] [address] C-REACTIVE PROTEINon 023 C REACTIVE PROTEIN (MG/L) IN SER/PLAS 1.6 mg/L Normal 0.0-7.0 [facility] Comment on above: Performed By: #### L [id number] #### [facility] ([facility]) [address] [place] [address] CBC WITH AUTO DIFFERENTIALon 10-21-2022 Basophils (Bld) [#/Vol] 0.02 10*3/uL Normal 0.00-0.20 [facility] Comment on above: Performed By: #### L [id number] #### [facility] ([facility]) [address] [place] [address] Basophils/100 WBC (Bld) 0.3 % Normal 0.0-1.0 [facility] Comment on above: Performed By: #### L [id number] #### [facility] (BEAKER) [address] [place] [address] Eosinophils (Bld) [#/Vol] 0.02 10*3/uL Normal 0.00-0.5 0 [facility] Comment on above: Performed By: #### L [id number] #### [facility] [address] [place] [address] Eosinophils/100 WBC (Bld) 0.3 % Normal 0.0-6.0 [facility] Comment on above: Performed By: #### L [id number] #### [facility] [address] [place] [address] Erythrocyte distribution wid th (RBC) [Ratio] 17.2 % High 11.5-15.0 [facility] Comment on above: Performed By: #### L [id number] #### [facility] (BEAKER) [address] [place] [address] ERYTHROCYTE MEAN CORPUSCULAR HEMOGLOBIN CONCENTRATION (G/DL) BY AUTOMATED 29.3 g/dL Low 32.0-35.0 [facility] Comment on above: Performed By: #### L [id number] #### [facility] (BEAKER) [address] [place] [address] Hematocrit (Bld) [Volume fraction] 29.7 % Low 36.0-48.0 [facility] Comment on above: Performed By: #### L [id number] #### [facility] (BEAKER) [address] [place] [address] Hemoglobin (Bld) [Mass/Vol] 8.7 g/dL Low 12.0-15. 0 [facility] Comment on above: Performed By: #### L [id number] #### [facility] [address] [place] [address] Immature granulocytes (Bld) [#/Vol] 0.02 10*3/uL Normal 0.00-0.20 [facility] Comment on above: Performed By: #### L [id number] #### [facility] [address] [place] [address] Immature granulocytes/100 WBC (Bld) 0.3 % Normal 0.0-1.0 [facility] Comment on above: Performed By: #### L [id number] #### [facility] ([facility]) [address] [place] [address] Lymphocytes (Bld) [#/Vol] 2.29 10*3/uL Normal 1.20-4.0 0 [facility] Comment on above: Performed By: #### L [id number] #### [facility] ([facility]) [address] [place] [address] Lymphocytes/100 WBC (Bld) 31.8 % Normal 20.0-45.0 [facility] Comment on above: Performed By: #### L [id number] #### [facility] [address] [place] [address] MCH (RBC) [Entitic mass] 22.3 pg Low 27.0-33.0 [facility] Comment on above: Performed By: #### L [id number] #### [facility] [address] [place] [address] MCV (RBC) [Entitic vol] 76.2 fL Low 82.0-98.0 [facility] Comment on above: Performed By: #### L [id number] #### [facility] LAB (BEAKER) [address] [place] [address] Monocytes (Bld) [#/Vol] 0.53 10*3/uL Normal 0.10-1.00 [facility] Comment on above: Performed By: #### L [id number] #### [facility] LAB ([facility]) [address] [place] [address] Monocytes/100 WBC (Bld) 7.4 % Normal 5.0-12.0 [facility] Comment on above: Performed By: #### L [id number] #### [facility] LAB ([facility]) [address] [place] [address] Neutrophils (Bld) [#/Vol] 4.31 10*3/uL Normal 1.60-7.6 0 [facility] Comment on above: Performed By: #### L [id number] #### [facility] LAB ([facility]) [address] [place] [address] Neutrophils/100 WBC (Bld) 59.9 % Normal 40.0-72.0 [facility] Comment on above: Performed By: #### L [id number] #### [facility] LAB ([facility]) [address] [place] [address] NRBC (PER 100 WBCS) BY AUTOM ATED COUNT 0.0 % Normal 0.0-0.0 [facility] Comment on above: Performed By: #### L [id number] #### [facility] LAB ([facility]) [address] [place] [address] PLATELETS (10*3/UL) IN BLOOD AUTOMATED COUNT 243 10*3/uL Normal 150-400 [facility] Comment on above: Performed By: #### L [id number] #### [facility] LAB ([facility]) [address] [place] [address] RBC (Bld) [#/Vol] 3.90 10*6/uL Normal 3.80-5.00 [facility] Comment on above: Performed By: #### L [id number] #### [facility] LAB ([facility]) [address] [place] [address] WBC (Bld) [#/Vol] 7.19 10*3/uL Normal 4.00-10.60 [facility] Comment on above: Performed By: #### L [id number] #### [facility] (VINCE) [place] [address] CONSULTon 10-21-2022 CONSULT Attestation signed by Nain [...] Al (more content not included)... [facility]-2022 EDPROV [facility] [address] [facility] [address] EMERGENCY DEPARTMENT ENCOUNTER CHIEF COMPLAINT Chief Complaint [...] 100, Resp: 18 ED Course as of 10/22/22130Oct 21, 2022 1727 Patient discussed with orthopedic [...] with lab regarding delay in aspiration results, laboratory cureman reports no sample was received in lab. Spoke with ortho resident who reports they were unable to aspirate any fluid from the knee (dry tap) and that the pt is ok for dc home to fu with Dr Lane outpt. Ortho reports they reviewed all results. No other recommendations per orthopedics. [JS] 2041 Pt was evaluated by adjusto writer operator. Pt tearful. Pt reports she has had [...] the plan. [JS] ED Course User Index [BH] ADITI Pascual [JS] ADITI White Diagnoses as of 01/12/23 0131 Left knee pain, unspecified chronicity DIAGNOSTIC [...] Procedure Abnormality Status --------- ------ Body fluid culture[[id number]] Anaerobic culture[[id number]] Please view results for these tests on the individual orders. FUNGAL CULTURE BODY FLUID CULTURE ANAEROBIC CULTURE CBC AND DIFFERENTIAL Narrative: The following orders were created for panel order CBC and differential. Procedure Abnormality Status --------- ------ CBC auto differential[[id number]] Abnormal Final result Please view results for [...] Status --------- ------ Body fluid cell count wit...[[id number]] Please view results for these tests on the individual orders. GLUCOSE, BODY FLUID SYNOVIAL FLUID, CRYSTAL BODY FLUID CELL COUNT WITH DIFFERENTIAL CONSULTS: Orthopedics PROCEDURES: attempted left knee aspiration by orthopedics FINAL IMPRESSION 1. Left knee pain, unspecified chronicity PATIENT REFERRED TO: [facility] Orthopedics [phone] Schedule an appointment as soon as possible for a visit DISCHARGE MEDICATIONS: Discharge Medication List as of 10/21/2022 9:02 PM I have reviewed the disposition diagnosis with the patient and/or their family/guardian. I have answered their questions and given discharge instructions. They voiced understanding of these instructions and d (more content not included)... Normal [facility] EDPROV [facility] [address] [facility] [address] EMERGENCY DEPARTMENT ENCOUNTER ED Room: CHIEF COMPLAINT [...] calcium (1,500 mg) tablet 300 mg., Starting Wed08/21/2018, Historical Med cyanocobalamin, vitamin B-12, 1,000 mcg/mL kit Inject as directed every 30 (thirty) days., Historical Med diclofenac (Voltaren) 1 % topical gel apply 4 grams to affected area, Historical Med ferrous sulfate 325 (65 Fe) MG tablet every 12 (twelve) hours., Starting Wed08/21/2018, Historical Med multivitamin (Theragran-M) 9 mg iron-400 [...] mg suppository Insert into the rectum., Starting Wed06/29/2022, Historical Med tamsulosin (Flomax) 0.4 mg 24 hr capsule tamsulosin 0.4 mg capsule, Historical Med ALLERGIES is allergic to toradol [ketorolac], compazine [prochlorperazine], and (more content not included)... Normal [facility] SEDIMENTATION RATEon 023 SEDIMENTATION RATE, ERYTHROCYTE 34 mm/hr High <=20 [facility] Comment on above: Performed By: #### L [id number] #### [facility] LAB (BEAKER) [address] [place] [address] C-REACTIVE PROTEINon 023 C REACTIVE PROTEIN (MG/L) IN SER/PLAS 2.0 mg/L Normal 0.0-7.0 [facility] Comment on above: Performed By: #### L [id number] #### [facility] LAB (BEAKER) [address] [place] [address] Office Visiton 10-20-2022 Follow-up visit [id number] Madyson Moore 1980 F Date Provider Department Center 10/20/2022 JORDEN DEWITT MP ORTHO [facility] Family History Problem Relation Age of Onset Brain cancer Mother Breast cancer Sister Kidney cancer Maternal Grandmother Prostate cancer Paternal Grandfather Cancer Father Cancer Sister Family Status - Relation Status Age at Mother Sister Maternal Grandmother Paternal Grandfather Father Sister Level of Service:[address] NC OFFICE/OUTPATIENT ESTABLISHED LOW MDM 20-29 MIN Reason for Visit and Comments: Follow-up [[id number]] Normal [facility] SEDIMENTATION RATEon 023 SEDIMENTATION RATE, ERYTHROCYTE 25 mm/hr High <=20 [facility] Comment on above: Performed By: #### L [id number] #### [facility] LAB (BEAKER) [address] [place] [address] 36on 10-15-2022 36 Lets get appointment scheduled Normal [facility] C-REACTIVE PROTEINon 023 C REACTIVE PROTEIN (MG/L) IN SER/PLAS 1.4 mg/L Normal 0.0-7.0 [facility] Comment on above: Performed By: #### L [id number] #### [facility] LAB (BEAKER) [address] [place] [address] CONSULTon 10-13-2022 CONSULT Attestation signed by Sorin [...] Cancer Father Tye Shearn Cancer Sister January [facility] Social History She reports that she quit [...] as well. She does specifically ask for Pollok for pain and states she does not tolerate any NSAIDS. I am hesitant to prescribe, or advise ED providers to prescribe, any narcotics for pain control as review of OARRS demonstrates that patient gets narcotic pain medications quite frequently from different providers and prior orthopedic clinic notes specifi (more content not included)... Normal [facility] EDPROVon 10-13-2022 EDPROV HPI Chief Complaint Patient [...] chills, body aches. History provided by: Patient Ruth Coma Scale Score: 15 Patient History Past [...] cancer Paternal Grandfather ??? Cancer Father Tye Polo ??? Cancer Sister January Dayanara Social History [...] [BM] ED Course User Index [BM] Dusty Pisano NP Diagnoses as of 10/13/22 1156 Acute pain of left knee Medical Decision Making Attestion Dusty Pisano NP 10/13/22 0938 Normal [facility] SEDIMENTATION RATEon 023 SEDIMENTATION RATE, ERYTHROCYTE 9 mm/hr Normal <=20 [facility] Comment on above: Performed By: #### L [id number] #### [facility] LAB (BEAKER) [address] [place] [address] Covid-19 PCR ([facility])on 09-11 SARS-CoV-2 (COVID-19) RNA MAMIE+probe Ql (Unsp spec) Detected Critically abnormal NOT DETECTED [facility] Comment on above: Result Comment: This test is not yet approved or cleared by the [place] FDA. When there are no FDA-approved or cleared tests available, and other criteria are met, FDA can make tests available under an emergency access mechanism called an Emergency Use Authorization (EUA). The EUA for this test is supported by the [place] of Health and Human Service's (HHS's) declaration [...] used). Performed By: #### C [id number] #### [facility] Laboratory [address] [place] [address] Dr. Idania Roldan INFLUENZA A AND B AGon 10-06 [facility] SEE BELOW Normal The [facility] ospital Comment on above: Result Comment: Nega tive for Flu A protein angiten. Infection due to Flu A cannot be ruled out. Flu A angiten in the sample may be below the detection limit of the test. Performed By: #### P T, PTT #### [facility] Laboratory [address] [place] [address] Dr. Idania Roldan INFLUBNEG SEE BELOW Normal [facility] ospital Comment on above: Result Comment: Nega tive for Flu B protein antigen. Infection due to Flu B cannot be ruled out. Flu B antigen in the sample may be below the detection limit of the test. Performed By: #### P T, PTT #### [facility] [address] [place] [address] Dr. Idania Roldan INFLUENZA A AG Negative Normal NEGATIVE SEE COMMENT [facility] Comment on above: Performed By: #### P T, PTT #### [facility] [address] [place] [address] Dr. Idania Roldan INFLUENZA B AG Negative Normal NEGATIVE SEE COMMENT [facility] Comment on above: Performed By: #### P T, PTT #### [facility] [address] [place] [address] Dr. Idania Roldan INTERNAL CONTROLS Within Normal Limits Normal Wi thin Normal Limits [facility] Comment on above: Performed By: #### P T, PTT #### [facility] [address] [place] [address] Dr. Idania Roldan AMYLASEon 09-30-2022 Amylase [Catalytic activity/Vol] 62 U/L Normal 25- 115 [facility] Comment on above: Performed By: #### B MP, LIPA, YVETTE, LIVER #### [facility] [address] [place] [address] Dr. Idania Roldan CBC AUTO DIFFon 09-30-2022 BASO # 0.0 103/ul Normal 0.0-0.[address] [facility] ospital Comment on above: Performed By: #### C BC #### [facility] [address] [place] [address] Dr. Idania Roldan Basophils/100 WBC (Bld) 0.3 % Normal 0.2-2.0 [facility] Comment on above: Performed By: #### C BC #### [facility] [address] [place] [address] Dr. Idania Roldan EO # 0.1 103/ul Normal 0.0-0.[address] [facility] Comment on above: Performed By: #### C BC #### [facility] [address] [place] [address] Dr. Idania Roldan Eosinophils/100 WBC (Bld) 1.2 % Normal 0.9-7.0 [facility] Comment on above: Performed By: #### C BC #### [facility] [address] [place] [address] Dr. Idania Roldan Erythrocyte distribution wid th (RBC) [Ratio] 14.8 % Normal 11.0-15.0 [facility] Comment on above: Performed By: #### C BC #### [facility] [address] [place] [address] Dr. Idania Rlodan Hematocrit (Bld) [Volume fraction] 31.8 % Critically low 36.0-48.0 [facility] Comment on above: Performed By: #### C BC #### [facility] [address] [place] [address] Dr. Idania Roldan Hemoglobin (Bld) [Mass/Vol] 9.6 g/dL Critically low 12.0 -16.0 [facility] Comment on above: Performed By: #### C BC #### [facility] [address] [place] [address] Dr. Idania Roldan IG # 0.01 10e3/ul Normal 0.00-0.03 [facility] Comment on above: Performed By: #### C BC #### [facility] [address] [place] [address] Dr. Idania Roldan IG % 0.1 % Normal 0.0-0.[address] [facility] ospital Comment on above: Performed By: #### C BC #### [facility] [address] [place] [address] Dr. Idania Roldan LYMPH # 3.3 103/ul Normal 1.2-3.[address] [facility] Comment on above: Performed By: #### C BC #### [facility] [address] [place] [address] Dr. Idania Roldan Lymphocytes/100 WBC (Bld) 45.4 % Normal 20.5-60.0 [facility] Comment on above: Performed By: #### C BC #### [facility] [address] [place] [address] Dr. Idania Roldan MANUAL DIFF REQ NO Normal [facility] Comment on above: Performed By: #### C BC #### [facility] [address] [place] [address] Dr. Idania Roldan MCH (RBC) [Entitic mass] 22.7 pg Critically low 26.7-34 .0 [facility] Comment on above: Performed By: #### C BC #### [facility] [address] [place] [address] Dr. Idania Roldan MCHC (RBC) [Mass/Vol] 30.2 g/dL Normal 29.9-35.2 [facility] Comment on above: Performed By: #### C BC #### [facility] [address] [place] [address] Dr. Idania Roldan MCV (RBC) [Entitic vol] 75.4 fL Critically low 81.0-99. 0 [facility] Comment on above: Performed By: #### C BC #### [facility] [address] [place] [address] Dr. Idania Roldan MONO # 0.5 103/ul Normal 0.3-0.8 [facility] Comment on above: Performed By: #### C BC #### [facility] [address] [place] [address] Dr. Idania Roldan Monocytes/100 WBC (Bld) 6.2 % Normal 1.7-12.0 [facility] Comment on above: Performed By: #### C BC #### [facility] [address] [place] [address] Dr. Idania Roldan NEUT # 3.4 103/ul Normal 1.4-6.[address] [facility] ospital Comment on above: Performed By: #### C BC #### [facility] [address] [place] [address] Dr. Idania Roldan Neutrophils/100 WBC (Bld) 46.8 % Normal 43.0-75.0 [facility] Comment on above: Performed By: #### C BC #### [facility] Laboratory [address] [place] [address] Dr. Idania Roldan Platelet mean volume (Bld) [Entitic vol] 8.5 fL Critically low 9.5-13.5 [facility] Comment on above: Performed By: #### C BC #### [facility] [address] [place] [address] Dr. Idania Roldan PLT 273 103/ul Normal 150-[address] [facility]ital Comment on above: Performed By: #### C BC #### [facility] [address] [place] [address] Dr. Idania Roldan RBC 4.22 106/ul Normal 4.20-5.40 [facility] Comment on above: Performed By: #### C BC #### [facility] [address] [place] [address] Dr. Idania Roldan WBC 7.2 103/ul Normal 4.0-11.[address] [facility] o[facility]ital Comment on above: Performed By: #### C BC #### [facility] [address] [place] [address] Dr. Idania Roldan CULTURE URINEon 09-30-2022 CULTURE URINE Culture Observations : MODERATE GROWTH OF MIXED GENITAL ALE. NO POTENTIAL PATHOGENS SEEN. Normal [facility] Comment on above: Performed By: #### P T, PTT #### [facility] Laboratory [address] [place] [address] Dr. Idania Roldan LIPASEon 09-30-2022 Lipase [Catalytic activity/Vol] 256.0 U/L Normal 73.0 -393.0 [facility] Comment on above: Performed By: #### B MP, LIPA, YVETTE, LIVER #### [facility] [address] [place] [address] Dr. Idania Roldan PROF 14(COMP METB)on 022 Albumin [Mass/Vol] 4.1 g/dL Normal 3.4-5.0 [facility] Comment on above: Performed By: #### B MP, LIPA, YVETTE, LIVER #### [facility] Laboratory [address] [place] [address] Dr. Idania Roldan Albumin/Globulin [Mass ratio] 1.0 {ratio} Normal [facility] Comment on above: Performed By: #### B MP, LIPA, YVETTE, LIVER #### [facility] Laboratory [address] [place] [address] Dr. Idania Roldan ALP [Catalytic activity/Vol] 93 U/L Normal 46-116 [facility] Comment on above: Performed By: #### B MP, LIPA, YVETTE, LIVER #### [facility] [address] [address] [address] Idania Roldan ALT [Catalytic activity/Vol] 13 U/L Critically low 14- 59 [facility] Comment on above: Performed By: #### B MP, LIPA, YVETTE, LIVER #### [facility] [address] [address] [address] Idania Roldan Anion gap [Moles/Vol] 9.8 mmol/L Normal [facility] Comment on above: Performed By: #### B MP, LIPA, YVETTE, LIVER #### [facility] [address] [address] [address] Idania Roldan AST [Catalytic activity/Vol] 12 U/L Critically low 15- 37 [facility] Comment on above: Performed By: #### B MP, LIPA, YVETTE, LIVER #### [facility] [address] [address] [address] Idania Roldan Bilirubin [Mass/Vol] 0.2 mg/dL Normal 0.2-1.0 [facility] Comment on above: Performed By: #### B MP, LIPA, YVETTE, LIVER #### [facility] [address] [place] [address] Dr. Idania Roldan Calcium [Mass/Vol] 9.2 mg/dL Normal 8.5-10.1 [facility] Comment on above: Performed By: #### B MP, LIPA, YVETTE, LIVER #### [facility] [address] [place] [address] Dr. Idania Roldan Chloride [Moles/Vol] 101 mmol/L Normal 98-107 [facility] Comment on above: Performed By: #### B MP, LIPA, YVETTE, LIVER #### [facility] [address] [place] [address] Dr. Idania Roldan CO2 [Moles/Vol] 31.8 mmol/L Normal 21.0-32.0 [facility] Comment on above: Performed By: #### B MP, LIPA, YVETTE, LIVER #### [facility] [address] [place] [address] Dr. Idania Roldan Creatinine [Mass/Vol] 0.71 mg/dL Normal 0.55-1.02 [facility] Comment on above: Performed By: #### B MP, LIPA, YVETTE, LIVER #### [facility] [address] [place] [address] Dr. Idania Roldan EGFR-AF CYPRIOT >60 Normal >=60 [facility] Comment on above: Performed By: #### B MP, LIPA, YVETTE, LIVER #### [facility] Laboratory [address] [place] [address] Dr. Idania Roldan EGFR-NON AF CYPRIOT >60 Normal >=60 [facility] Comment on above: Performed By: #### B MP, LIPA, YVETTE, LIVER #### [facility] Laboratory [address] [place] [address] Dr. Idania Roldan Globulin (S) [Mass/Vol] 4.0 g/dL Normal T [facility] Comment on above: Performed By: #### B MP, LIPA, YVETTE, LIVER #### [facility] Laboratory [address] [place] [address] Dr. Idania Roldan Glucose [Mass/Vol] 92 mg/dL Normal 74-106 [facility] Comment on above: Performed By: #### B MP, LIPA, YVETTE, LIVER #### [facility] Laboratory [address] [place] [address] Dr. Idania Roldan Potassium [Moles/Vol] 3.6 mmol/L Normal 3.5-5.1 [facility] Comment on above: Performed By: #### B MP, LIPA, YVETTE, LIVER #### [facility] Laboratory [address] [place] [address] Dr. Idania Roldan Protein [Mass/Vol] 8.1 g/dL Normal 6.4-8.2 [facility] Comment on above: Performed By: #### B MP, LIPA, YVETTE, LIVER #### [facility] Laboratory [address] [place] [address] Dr. Idania Roldan Sodium [Moles/Vol] 139 mmol/L Normal 136-145 [facility] Comment on above: Performed By: #### B MP, LIPA, YVETTE, LIVER #### [facility] Laboratory [address] [place] [address] Dr. Idania Roldan Urea nitrogen [Mass/Vol] 15.0 mg/dL Normal 7.0-18.0 [facility] Comment on above: Performed By: #### B MP, LIPA, YVETTE, LIVER #### [facility] Laboratory [address] [place] [address] Dr. Idania Roldan Urea nitrogen/Creatinine [Mass ratio] 21.1 mg/mg Normal [facility] Comment on above: Performed By: #### B MP, LIPA, YVETTE, LIVER #### [facility] Laboratory [address] [place] [address] Dr. Idania Roldan UA RANDOM W/MICROSCOPICon BACTERIA SMALL Abnormal NONE SEEN [facility] Comment on above: Performed By: #### B MP, LIPA, YVETTE, LIVER #### [facility] Laboratory [address] [place] [address] Dr. Idania Roldan Bilirubin Ql (U) Negative Normal NEGATIVE [facility] Comment on above: Performed By: #### B MP, LIPA, YVETTE, LIVER #### [facility] Laboratory [address] [place] [address] Dr. Idania Roldan CAST NONE SEEN Normal NONE SEEN [facility] Comment on above: Performed By: #### B MP, LIPA, YVETTE, LIVER #### [facility] [address] [place] [address] Dr. Idania Roldan Clarity (U) CLEAR Normal CLEAR [facility] Comment on above: Performed By: #### B MP, LIPA, YVETTE, LIVER #### [facility] Laboratory [address] [place] [address] Dr. Idania Roldan Color (U) YELLOW Normal YELLOW [facility] Comment on above: Performed By: #### B MP, LIPA, YVETTE, LIVER #### [facility] Laboratory [address] [place] [address] Dr. Idania Roldan Crystals LM Nom (Urine sed) NONE SEEN Normal NONE SEE N [facility] Comment on above: Performed By: #### B MP, LIPA, YVETTE, LIVER #### [facility] Laboratory [address] [place] [address] Dr. Idania Roldan Epithelial cells LM Ql (Urine sed) FEW Abnormal N ONE SEEN /RARE [facility] Comment on above: Performed By: #### B MP, LIPA, YVETTE, LIVER #### [facility] Laboratory [address] [place] [address] Dr. Idania Roldan Glucose Ql (U) Negative Normal NEGATIVE [facility] Comment on above: Performed By: #### B MP, LIPA, YVETTE, LIVER #### [facility] [address] [place] [address] Dr. Idania Roldan Hemoglobin Ql (U) Negative Normal NEGATIVE The [facility] Comment on above: Performed By: #### B MP, LIPA, YVETTE, LIVER #### [facility] [address] [place] [address] Dr. Idania Roldan Ketones Ql (U) Negative Normal NEGATIVE The [facility] Comment on above: Performed By: #### B MP, LIPA, YVETTE, LIVER #### [facility] [address] [place] [address] Dr. Idania Roldan LEUKOCYTES SMALL Abnormal NEGATIVE The [facility] Comment on above: Performed By: #### B MP, LIPA, YVETTE, LIVER #### [facility] [address] [place] [address] Dr. Idania Roldan MUCOUS TRACE Abnormal NONE SEEN The [facility] Comment on above: Performed By: #### B MP, LIPA, YVETTE, LIVER #### [facility] [address] [place] [address] Dr. Idania Roldan Nitrite Ql (U) Negative Normal NEGATIVE The [facility] Comment on above: Performed By: #### B MP, LIPA, YVETTE, LIVER #### [facility] [address] [place] [address] Dr. Idania Roldan pH (U) 7.0 [pH] Normal 5-[address] [facility] ostal Comment on above: Performed By: #### B MP, LIPA, YVETTE, LIVER #### [facility] [address] [place] [address] Dr. Idania Roldan RBC NONE SEEN Abnormal 0-[address] [facility] Comment on above: Performed By: #### B MP, LIPA, YVETTE, LIVER #### [facility] [address] [place] [address] Dr. Idania Roldan SPEC GRAVITY 1.015 Normal 1.005-<=1.025 The [facility] Comment on above: Performed By: #### B MP, LIPA, YVETTE, LIVER #### [facility] [address] [place] [address] Dr. Idania Roldan UA PROTEIN Negative Normal NEGATIVE/ TRACE The [facility] Comment on above: Performed By: #### B MP, LIPA, YVETTE, LIVER #### [facility] [address] [place] [address] Dr. Idania Roldan Urobilinogen Qn (U) 0.2 {Bryan'U}/dL Normal 0.2 - 1. 0 The [facility] Comment on above: Performed By: #### B MP, LIPA, YVETTE, LIVER #### [facility] [address] [address] [address] Idania Roldan WBC 5-10 Abnormal NONE SEEN The [facility] Comment on above: Performed By: #### B MP, LIPA, YVETTE, LIVER #### [facility] [address] [address] [address] Idania Roldan Covid-19 PCR ([facility])on 09-10 SARS-CoV-2 (COVID-19) RNA MAMIE+probe Ql (Unsp spec) Not detected Normal NOT DETECTED The [facility] Comment on above: Result Comment: This test is not yet approved or cleared by the [place] FDA. When there are no FDA-approved or cleared tests available, and other criteria are met, FDA can make tests available under an emergency access mechanism called an Emergency Use Authorization (EUA). The EUA for this test is supported by the [place] of Health and Human Service's (HHS's) declaration [...] SARS-CoV-2. Performed By: #### C VDTBH #### [facility] [address] [address] [address] Idania Roldan INFLUENZA A AND B AGon 09-21 INFLUANEGH SEE BELOW Normal The [facility] Comment on above: Result Comment: Nega tive for Flu A protein angiten. Infection due to Flu A cannot be ruled out. Flu A angiten in the sample may be below the detection limit of the test. Performed By: #### B MP, LIPA, YVETTE, LIVER #### [facility] [address] [address] [address] Idania Roldan INFLUBNEGH SEE BELOW Normal The [facility] Comment on above: Result Comment: Nega tive for Flu B protein antigen. Infection due to Flu B cannot be ruled out. Flu B antigen in the sample may be below the detection limit of the test. Performed By: #### B MP, LIPA, YVETTE, LIVER #### [facility] [address] [address] [address] Idania Roldan INFLUENZA A AG Negative Normal NEGATIVE SEE COMMENT [facility] Comment on above: Performed By: #### B MP, LIPA, YVETTE, LIVER #### [facility] [address] [address] [address] Idania Roldan INFLUENZA B AG Negative Normal NEGATIVE SEE COMMENT [facility] Comment on above: Performed By: #### B MP, LIPA, YVETTE, LIVER #### [facility] [address] [address] [address] Idania Roldan INTERNAL CONTROLS Within Normal Limits Normal Wi thin Normal Limits The [facility] Comment on above: Performed By: #### B MP, LIPA, YVETTE, LIVER #### [facility] [address] [address] [address] Idania Roldan Covid-19 PCR ([facility])on 08-11 SARS-CoV-2 (COVID-19) RNA MAMIE+probe Ql (Unsp spec) Not detected Normal NOT DETECTED The [facility] Comment on above: Result Comment: This test is not yet approved or cleared by the [place] FDA. When there are no FDA-approved or cleared tests available, and other criteria are met, FDA can make tests available under an emergency access mechanism called an Emergency Use Authorization (EUA). The EUA for this test is supported by the [place] of Health and Human Service's (HHS's) declaration [...] consistent with SARS-CoV-2. Performed By: #### B MP, LIPA, YVETTE, LIVER #### [facility] [address] [place] [address] Dr. Idania Roldan CBC AUTO DIFFon 08-21-2022 BASO # 0.0 103/ul Normal 0.0-0.[address] [facility] ostal Comment on above: Performed By: #### P T, PTT #### [facility] [address] [place] [address] Dr. Idania Roldan Basophils/100 WBC (Bld) 0.4 % Normal 0.2-2.0 [facility] Comment on above: Performed By: #### P T, PTT #### [facility] [address] [place] [address] Dr. Idania Roldan EO # 0.1 103/ul Normal 0.0-0.[address] [facility] Comment on above: Performed By: #### P T, PTT #### [facility] [address] [place] [address] Dr. Idania Roldan Eosinophils/100 WBC (Bld) 1.3 % Normal 0.9-7.0 The [facility] Comment on above: Performed By: #### P T, PTT #### [facility] [address] [place] [address] Dr. Idania Roldan Erythrocyte distribution wid th (RBC) [Ratio] 15.3 % Critically high 11.0-15.0 The [facility] Comment on above: Performed By: #### P T, PTT #### [facility] [address] [place] [address] Dr. Idania Roldan Hematocrit (Bld) [Volume fraction] 32.1 % Critically low 36.0-48.0 The [facility] Comment on above: Performed By: #### P T, PTT #### [facility] [address] [place] [address] Dr. Idania Roldan Hemoglobin (Bld) [Mass/Vol] 9.9 g/dL Critically low 12.0 -16.0 [facility] Comment on above: Performed By: #### P T, PTT #### [facility] [address] [place] [address] Dr. Idania Roldan IG # 0.01 10e3/ul Normal 0.00-0.03 [facility] Comment on above: Performed By: #### P T, PTT #### [facility] [address] [place] [address] Dr. Idania Roldan IG % 0.1 % Normal 0.0-0.5 The [facility] Comment on above: Performed By: #### P T, PTT #### [facility] [address] [place] [address] Dr. Idania Roldan LYMPH # 2.7 103/ul Normal 1.2-3.8 [facility] Comment on above: Performed By: #### P T, PTT #### [facility] [address] [place] [address] Dr. Idania Roldan Lymphocytes/100 WBC (Bld) 35.7 % Normal 20.5-60.0 [facility] Comment on above: Performed By: #### P T, PTT #### [facility] [address] [place] [address] Dr. Idania Roldan MANUAL DIFF REQ NO Normal The [facility] Comment on above: Performed By: #### P T, PTT #### [facility] [address] [place] [address] Dr. Idania Roldan MCH (RBC) [Entitic mass] 24.8 pg Critically low 26.7-34 .0 [facility] Comment on above: Performed By: #### P T, PTT #### [facility] [address] [place] [address] Dr. Idania Roldan MCHC (RBC) [Mass/Vol] 30.8 g/dL Normal 29.9-35.2 [facility] Comment on above: Performed By: #### P T, PTT #### [facility] [address] [place] [address] Dr. Idania Roldan MCV (RBC) [Entitic vol] 80.5 fL Critically low 81.0-99. 0 The [facility] Comment on above: Performed By: #### P T, PTT #### [facility] [address] [place] [address] Dr. Idania Roldan MONO # 0.5 103/ul Normal 0.3-0.[address] [facility] Comment on above: Performed By: #### P T, PTT #### [facility] [address] [place] [address] Dr. Idania Roldan Monocytes/100 WBC (Bld) 6.1 % Normal 1.7-12.0 [facility] Comment on above: Performed By: #### P T, PTT #### [facility] [address] [place] [address] Dr. Idania Roldan NEUT # 4.2 103/ul Normal 1.4-6.[address] [facility] Comment on above: Performed By: #### P T, PTT #### [facility] [address] [place] [address] Dr. Idania Roldan Neutrophils/100 WBC (Bld) 56.4 % Normal 43.0-75.0 The [facility] Comment on above: Performed By: #### P T, PTT #### [facility] [address] [place] [address] Dr. Idania Roldan Platelet mean volume (Bld) [Entitic vol] 9.4 fL Critically low 9.5-13.5 [facility] Comment on above: Performed By: #### P T, PTT #### [facility] [address] [place] [address] Dr. Idania Roldan PLT 296 103/ul Normal 150-[address] [facility] Comment on above: Performed By: #### P T, PTT #### [facility] [address] [place] [address] Dr. Idania Roldan RBC 3.99 106/ul Critically low 4.20-5.40 The [facility] Comment on above: Performed By: #### P T, PTT #### [facility] [address] [place], [place] [address] Dr. Idania Roldan WBC 7.5 103/ul Normal 4.0-11.[address] [facility] Comment on above: Performed By: #### P T, PTT #### [facility] [address] [place], [place] [address] ABD/PELV W CONon 08-21-[address] ABD/PELV W CON EXAMINATION: CT ABD/ [...] RUSSELL DUFF Date: 2022-08-21 12:35 Normal The [facility] ER URINE PROFILEon 2 Bilirubin Ql (U) Unable to perform te sting due to color interference. Abnormal NEGATIVE The [facility] Comment on above: Performed By: #### B MP, LIPA, YVETTE, LIVER #### [facility] [address] [place], [place] [address] Dr. Idania Roldan Clarity (U) TURBID Abnormal CLEAR The [facility] Comment on above: Performed By: #### B MP, LIPA, YVETTE, LIVER #### [facility] [address] [place] [address] Dr. Idania Roldan Color (U) RED Abnormal YELLOW The [facility] Comment on above: Performed By: #### B MP, LIPA, YVETTE, LIVER #### [facility] [address] [place] [address] Dr. Idania Roldan ERUAHD A micrscopic examina tion will be performed if indicated. Normal [facility] Comment on above: Performed By: #### B MP, LIPA, YVETTE, LIVER #### [facility] [address] [place] [address] Dr. Idania Roldan Glucose Ql (U) Unable to perform te sting due to color interference. Abnormal NEGATIVE [facility] Comment on above: Performed By: #### B MP, LIPA, YVETTE, LIVER #### [facility] [address] [place] [address] Dr. Idania Roldan Hemoglobin Ql (U) Unable to perform te sting due to color interference. Abnormal NEGATIVE The [facility] Comment on above: Performed By: #### B MP, LIPA, YVETTE, LIVER #### [facility] [address] [place] [address] Dr. Idania Roldan Ketones Ql (U) Unable to perform te sting due to color interference. Abnormal NEGATIVE [facility] Comment on above: Performed By: #### B MP, LIPA, YVETTE, LIVER #### [facility] [address] [place] [address] Dr. Idania Roldan LEUKOCYTES Unable to perform te sting due to color interference. Abnormal NEGATIVE [facility] Comment on above: Performed By: #### B MP, LIPA, YVETTE, LIVER #### [facility] [address] [place] [address] Dr. Idania Roldan Nitrite Ql (U) Unable to perform te sting due to color interference. Abnormal NEGATIVE [facility] Comment on above: Performed By: #### B MP, LIPA, YVETTE, LIVER #### [facility] [address] [place] [address] Dr. Idania Roldan pH Unable to perform te sting due to color interference. Abnormal 5-9 The [facility] Comment on above: Performed By: #### B MP, LIPA, YVETTE, LIVER #### [facility] [address] [place] [address] Dr. Idania Roldan SPEC GRAVITY 1.020 Normal 1.005-<=1.025 The [facility] Comment on above: Performed By: #### B MP, LIPA, YVETTE, LIVER #### [facility] [address] [place] [address] Dr. Idania Roldan UA PROTEIN Unable to perform te sting due to color interference. Normal NEGATIVE/ TRACE The [facility] Comment on above: Performed By: #### B MP, LIPA, YVETTE, LIVER #### [facility] [address] [place] [address] Dr. Idania Roldan UR MICRO IND INDICATED Normal [facility] Comment on above: Performed By: #### B MP, LIPA, YVETTE, LIVER #### [facility] [address] [place] [address] Dr. Idania Roldan UROBILINOGEN Unable to perform te sting due to color interference. Normal 0.2 - 1.0 The [facility] Comment on above: Performed By: #### B MP, LIPA, YVETTE, LIVER #### [facility] [address] [place] [address] Dr. Idania Roldan PROF 14(COMP METB)on 022 Albumin [Mass/Vol] 4.2 g/dL Normal 3.4-5.0 [facility] Comment on above: Performed By: #### P T, PTT #### [facility] [address] [place] [address] Dr. Idania Roldan Albumin/Globulin [Mass ratio] 1.0 {ratio} Normal [facility] Comment on above: Performed By: #### P T, PTT #### [facility] [address] [place] [address] Dr. Idania Roldan ALP [Catalytic activity/Vol] 91 U/L Normal 46-116 The [facility] Comment on above: Performed By: #### P T, PTT #### [facility] [address] [address] [address] Idania Roldan ALT [Catalytic activity/Vol] 15 U/L Normal 14-59 [facility] Comment on above: Performed By: #### P T, PTT #### [facility] [address] [address] [address] Idania Roldan Anion gap [Moles/Vol] 9.6 mmol/L Normal [facility] Comment on above: Performed By: #### P T, PTT #### [facility] [address] [address] [address] Idania Roldan AST [Catalytic activity/Vol] 14 U/L Critically low 15- 37 [facility] Comment on above: Performed By: #### P T, PTT #### [facility] [address] [address] [address] Idania Roldan Bilirubin [Mass/Vol] 0.2 mg/dL Normal 0.2-1.0 [facility] Comment on above: Performed By: #### P T, PTT #### [facility] [address] [address] [address] Idania Roldan Calcium [Mass/Vol] 9.2 mg/dL Normal 8.5-10.1 [facility] Comment on above: Performed By: #### P T, PTT #### [facility] [address] [address] [address] Idania Roldan Chloride [Moles/Vol] 103 mmol/L Normal 98-107 [facility] Comment on above: Performed By: #### P T, PTT #### [facility] [address] [address] [address] Idania Roldan CO2 [Moles/Vol] 31.2 mmol/L Normal 21.0-32.0 [facility] Comment on above: Performed By: #### P T, PTT #### [facility] [address] [address] [address] Idania Roldan Creatinine [Mass/Vol] 0.76 mg/dL Normal 0.55-1.02 [facility] Comment on above: Performed By: #### P T, PTT #### [facility] [address] [address] [address] Idania Roldan EGFR-AF CYPRIOT >60 Normal >=60 [facility] Comment on above: Performed By: #### P T, PTT #### [facility] [address] [address] [address] Idania Roldan EGFR-NON AF CYPRIOT >60 Normal >=60 [facility] Comment on above: Performed By: #### P T, PTT #### [facility] [address] [address] [address] Idania Roldan Globulin (S) [Mass/Vol] 4.2 g/dL Normal [facility] Comment on above: Performed By: #### P T, PTT #### [facility] [address] [address] [address] Idania Roldan Glucose [Mass/Vol] 107 mg/dL Critically high 74-106 [facility] Comment on above: Performed By: #### P T, PTT #### [facility] [address] [address] [address] Idania Roldan Potassium [Moles/Vol] 3.8 mmol/L Normal 3.5-5.1 [facility] Comment on above: Performed By: #### P T, PTT #### [facility] [address] [address] [address] Idania Roldan Protein [Mass/Vol] 8.4 g/dL Critically high 6.4-8.2 [facility] Comment on above: Performed By: #### P T, PTT #### [facility] [address] [address] [address] Idania Roldan Sodium [Moles/Vol] 140 mmol/L Normal 136-145 [facility] Comment on above: Performed By: #### P T, PTT #### [facility] [address] [address] [address] Idania Roldan Urea nitrogen [Mass/Vol] 12.0 mg/dL Normal 7.0-18.0 [facility] Comment on above: Performed By: #### P T, PTT #### [facility] [address] [address] [address] Idania Roldan Urea nitrogen/Creatinine [Mass ratio] 15.8 mg/mg Normal [facility] Comment on above: Performed By: #### P T, PTT #### [facility] [address] [address] [address] Idania Roldan URINE MICROSCOPIC ONLYon BACTERIA NONE SEEN Normal NONE SEEN [facility] Comment on above: Performed By: #### B MP, LIPA, YVETTE, LIVER #### [facility] [address] [address] [address] Idania Roldan Bacteria identified Cx Nom (U) NOT INDICATED Normal [facility] Comment on above: Performed By: #### B MP, LIPA, YVETTE, LIVER #### [facility] [address] [address] [address] Idania Roldan CAST NONE SEEN Normal NONE SEEN The [facility] Comment on above: Performed By: #### B MP, LIPA, YVETTE, LIVER #### [facility] [address] [address] [address] Idania Roldan Crystals LM Nom (Urine sed) NONE SEEN Normal NONE SEE N [facility] Comment on above: Performed By: #### B MP, LIPA, YVETTE, LIVER #### [facility] [address] [address] [address] Idania Roldan Epithelial cells LM Ql (Urine sed) RARE Normal N ONE SEEN /RARE The [facility] Comment on above: Performed By: #### B MP, LIPA, YVETTE, LIVER #### [facility] [address] [address] [address] Idania Roldan MUCOUS NONE SEEN Normal NONE SEEN The [facility] Comment on above: Performed By: #### B MP, LIPA, YVETTE, LIVER #### [facility] [address] [address] [address] Idania Roldan RBC (U) [#/Vol] /uL Abnormal 0-2 [facility] Comment on above: Performed By: #### B MP, LIPA, YVETTE, LIVER #### [facility] [address] [place] [address] Dr. Idania Roldan WBC 2-5 Abnormal NONE SEEN The [facility] Comment on above: Performed By: #### B MP, LIPA, YVETTE, LIVER #### [facility] [address] [place] [address] Dr. Idania Roldan CBC AUTO DIFFon 08-19-2022 BASO # 0.0 103/ul Normal 0.0-0.[address] [facility] Comment on above: Performed By: #### P T, PTT #### [facility] [address] [place] [address] Dr. Idania Roldan Basophils/100 WBC (Bld) 0.4 % Normal 0.2-2.0 [facility] Comment on above: Performed By: #### P T, PTT #### [facility] [address] [place] [address] Dr. Idania Roldan EO # 0.1 103/ul Normal 0.0-0.[address] [facility] Comment on above: Performed By: #### P T, PTT #### [facility] [address] [place] [address] Dr. Idania Roldan Eosinophils/100 WBC (Bld) 2.0 % Normal 0.9-7.0 [facility] Comment on above: Performed By: #### P T, PTT #### [facility] [address] [place] [address] Dr. Idania Roldan Erythrocyte distribution wid th (RBC) [Ratio] 14.8 % Normal 11.0-15.0 [facility] Comment on above: Performed By: #### P T, PTT #### [facility] [address] [place] [address] Dr. Idania Roldan Hematocrit (Bld) [Volume fraction] 31.5 % Critically low 36.0-48.0 The [facility] Comment on above: Performed By: #### P T, PTT #### [facility] [address] [place], [place] [id number] Dr. Idania Roldan Hemoglobin (Bld) [Mass/Vol] 9.5 g/dL Critically low 12.0 -16.0 [facility] Comment on above: Performed By: #### P T, PTT #### [facility] [address] [place] [address] Dr. Idania Roldan IG # 0.01 10e3/ul Normal 0.00-0.03 [facility] Comment on above: Performed By: #### P T, PTT #### [facility] [facility] [address] [place] [address] Dr. Idania Roldan IG % 0.2 % Normal 0.0-0.5 [facility] Comment on above: Performed By: #### P T, PTT #### [facility] [address] [place] [address] Dr. Idania Roldan LYMPH # 1.4 103/ul Normal 1.2-3.8 [facility] Comment on above: Performed By: #### P T, PTT #### [facility] [address] [place] [address] Dr. Idania Roldan Lymphocytes/100 WBC (Bld) 29.9 % Normal 20.5-60.0 The [facility] Comment on above: Performed By: #### P T, PTT #### [facility] [address] [place] [address] Dr. Idania Roldan MANUAL DIFF REQ NO Normal [facility] Comment on above: Performed By: #### P T, PTT #### [facility] [address] [place] [address] Dr. Idania Roldan MCH (RBC) [Entitic mass] 24.4 pg Critically low 26.7-34 .0 The [facility] Comment on above: Performed By: #### P T, PTT #### [facility] [address] [place] [address] Dr. Idania Roldan MCHC (RBC) [Mass/Vol] 30.2 g/dL Normal 29.9-35.2 The [facility] Comment on above: Performed By: #### P T, PTT #### [facility] [address] [place] [address] Dr. Idania Roldan MCV (RBC) [Entitic vol] 80.8 fL Critically low 81.0-99. 0 The [facility] Comment on above: Performed By: #### P T, PTT #### [facility] [address] [place] [address] Dr. Idania Roldan MONO # 0.2 103/ul Critically low 0.3-0.[address] [facility] Comment on above: Performed By: #### P T, PTT #### [facility] [address] [place] [address] Dr. Idania Roldan Monocytes/100 WBC (Bld) 5.2 % Normal 1.7-12.0 [facility] Comment on above: Performed By: #### P T, PTT #### [facility] [address] [place] [address] Dr. Idania Roldan NEUT # 2.9 103/ul Normal 1.4-6.[address] [facility] Comment on above: Performed By: #### P T, PTT #### [facility] [address] [place] [address] Dr. Idania Roldan Neutrophils/100 WBC (Bld) 62.3 % Normal 43.0-75.0 [facility] Comment on above: Performed By: #### P T, PTT #### [facility] [address] [place] [address] Dr. Idania Roldan Platelet mean volume (Bld) [Entitic vol] 8.6 fL Critically low 9.5-13.5 The [facility] Comment on above: Performed By: #### P T, PTT #### [facility] [address] [place] [address] Dr. Idania Roldan PLT 269 103/ul Normal 150-[address] [facility] Comment on above: Performed By: #### P T, PTT #### [facility] [address] [place] [address] Dr. Idania Roldan RBC 3.90 106/ul Critically low 4.20-5.40 [facility] Comment on above: Performed By: #### P T, PTT #### [facility] [address] [place] [address] Dr. Idania Roldan WBC 4.6 103/ul Normal 4.0-11.0 [facility] Comment on above: Performed By: #### P T, PTT #### [facility] [address] [place] [address] Dr. Idania Roldan PROF CHEM 8 (BAS METB)on Anion gap [Moles/Vol] 9.0 mmol/L Normal [facility] Comment on above: Performed By: #### B MP, LIPA, YVETTE, LIVER #### [facility] [address] [place] [address] Dr. Idania Roldan Calcium [Mass/Vol] 9.1 mg/dL Normal 8.5-10.1 The [facility] Comment on above: Performed By: #### B MP, LIPA, YVETTE, LIVER #### [facility] [address] [place] [address] Dr. Idania Roldan Chloride [Moles/Vol] 104 mmol/L Normal 98-107 The [facility] Comment on above: Performed By: #### B MP, LIPA, YVETTE, LIVER #### [facility] [address] [place] [address] Dr. Idania Roldan CO2 [Moles/Vol] 31.5 mmol/L Normal 21.0-32.0 The [facility] Comment on above: Performed By: #### B MP, LIPA, YVETTE, LIVER #### [facility] [address] [place] [address] Dr. Idania Roldan Creatinine [Mass/Vol] 0.59 mg/dL Normal 0.55-1.02 The [facility] Comment on above: Performed By: #### B MP, LIPA, YVETTE, LIVER #### [facility] [address] [place] [address] Dr. Idania Roldan EGFR-AF CYPRIOT >60 Normal >=60 The [facility] Comment on above: Performed By: #### B MP, LIPA, YVETTE, LIVER #### [facility] [address] [address] [address] Idania Roldan EGFR-NON AF CYPRIOT >60 Normal >=60 The [facility] Comment on above: Performed By: #### B MP, LIPA, YVETTE, LIVER #### [facility] [address] [address] [address] Idania Roldan Glucose [Mass/Vol] 90 mg/dL Normal 74-106 The [facility] Comment on above: Performed By: #### B MP, LIPA, YVETTE, LIVER #### [facility] [address] [place] [address] Dr. Idania Roldan Potassium [Moles/Vol] 4.5 mmol/L Normal 3.5-5.1 The [facility] Comment on above: Performed By: #### B MP, LIPA, YVETTE, LIVER #### [facility] [address] [place] [address] Dr. Idania Roldan Sodium [Moles/Vol] 140 mmol/L Normal 136-145 The [facility] Comment on above: Performed By: #### B MP, LIPA, YVETTE, LIVER #### [facility] [address] [place] [address] Dr. Idania Roldan Urea nitrogen [Mass/Vol] 8.0 mg/dL Normal 7.0-18.0 The [facility] Comment on above: Performed By: #### B MP, LIPA, YVETTE, LIVER #### [facility] [address] [place] [address] Dr. Idania Roldan Urea nitrogen/Creatinine [Mass ratio] 13.6 mg/mg Normal The [facility] Comment on above: Performed By: #### B MP, LIPA, YVETTE, LIVER #### [facility] [address] [place] [address] Dr. Idania Roldan PROTIMEon 08-19-2022 INR Coag (PPP) [Relative time] 0.93 {INR} Normal [facility] Comment on above: Performed By: #### B MP, LIPA, YVETTE, LIVER #### [facility] [address] [place] [address] Dr. Idania Roldan INR GUIDELINES SEE BELOW Normal The [facility] Comment on above: Result Comment: TARUN RED INR: 2.0 - 3.0 CONDITIONS NOT LISTED BELOW 2.5 - 3.5 FOR PROSTHETIC HEART VALVE REPLACEMENT 2.5 - 3.5 RECURRENT THROMBOSIS Performed By: #### B MP, LIPA, YVETTE, LIVER #### [facility] [address] [place], [place] [address] Dr. Idania Roldan PT Coag (PPP) [Time] 10.1 s Normal 9.0-11.6 The [facility] Comment on above: Performed By: #### B MP, LIPA, YVETTE, LIVER #### [facility] [address] [place], [place] [address] Dr. Idania Roldan PTTon 08-19-2022 aPTT Coag (Bld) [Time] 28.1 s Normal 22.3-36.2 Th [facility] Comment on above: Performed By: #### B MP, LIPA, YVETTE, LIVER #### [facility] [address] [place] [address] Dr. Idania Roldan Cov[facility]-19 PCR [facility]11 SARS-CoV-2 (COVID-19) RNA MAMIE+probe Ql (Unsp spec) Not detected Normal NOT DETECTED The [facility] Comment on above: Result Comment: This test is not yet approved or cleared by the [place] FDA. When there are no FDA-approved or cleared tests available, and other criteria are met, FDA can make tests available under an emergency access mechanism called an Emergency Use Authorization (EUA). The EUA for this test is supported by the [place] of Health and Human Service's (HHS's) declaration [...] Performed By: #### P T, PTT #### [facility] [address] [place] [address] Dr. Idania Roldan CBC AUTO DIFFon 07-10-2022 BASO # 0.0 103/ul Normal 0.0-0.[address] [facility] Comment on above: Performed By: #### P T, PTT #### [facility] [address] [place] [address] Dr. Idania Roldan Basophils/100 WBC (Bld) 0.2 % Normal 0.2-2.0 [facility] Comment on above: Performed By: #### P T, PTT #### [facility] [address] [place] [address] Dr. Idania Roldan EO # 0.1 103/ul Normal 0.0-0.[address] [facility] Comment on above: Performed By: #### P T, PTT #### [facility] [address] [place] [address] Dr. Idania Roldan Eosinophils/100 WBC (Bld) 1.3 % Normal 0.9-7.0 [facility] Comment on above: Performed By: #### P T, PTT #### [facility] [address] [place] [address] Dr. Idania Roldan Erythrocyte distribution wid th (RBC) [Ratio] 16.4 % Critically high 11.0-15.0 The [facility] Comment on above: Performed By: #### P T, PTT #### [facility] [address] [place] [address] Dr. Idania Roldan Hematocrit (Bld) [Volume fraction] 33.2 % Critically low 36.0-48.0 The [facility] Comment on above: Performed By: #### P T, PTT #### [facility] [address] [place] [address] Dr. Idania Roldan Hemoglobin (Bld) [Mass/Vol] 10.3 g/dL Critically low 12.0 -16.0 [facility] Comment on above: Performed By: #### P T, PTT #### [facility] [address] [address] [address] Idania Roldan IG # 0.01 10e3/ul Normal 0.00-0.03 [facility] Comment on above: Performed By: #### P T, PTT #### [facility] [address] [place] [address] Dr. Idania Roldan IG % 0.2 % Normal 0.0-0.5 [facility] Comment on above: Performed By: #### P T, PTT #### [facility] [address] [place] [address] Dr. Idania Roldan LYMPH # 1.8 103/ul Normal 1.2-3.8 [facility] Comment on above: Performed By: #### P T, PTT #### [facility] [address] [place] [address] Dr. Idania Roldan Lymphocytes/100 WBC (Bld) 38.8 % Normal 20.5-60.0 [facility] Comment on above: Performed By: #### P T, PTT #### [facility] [address] [place] [address] Dr. Idania Roldan MANUAL DIFF REQ NO Normal [facility] Comment on above: Performed By: #### P T, PTT #### [facility] [address] [place] [address] Dr. Idania Roldan MCH (RBC) [Entitic mass] 25.9 pg Critically low 26.7-34 .0 [facility] Comment on above: Performed By: #### P T, PTT #### [facility] [address] [place] [address] Dr. Idania Roldan MCHC (RBC) [Mass/Vol] 31.0 g/dL Normal 29.9-35.2 [facility] Comment on above: Performed By: #### P T, PTT #### [facility] [address] [place] [address] Dr. Idania Roldan MCV (RBC) [Entitic vol] 83.4 fL Normal 81.0-99.0 [facility] Comment on above: Performed By: #### P T, PTT #### [facility] [address] [place] [address] Dr. Idania Roldan MONO # 0.3 103/ul Normal 0.3-0.[address] [facility] Comment on above: Performed By: #### P T, PTT #### [facility] [address] [place] [address] Dr. Idania Roldan Monocytes/100 WBC (Bld) 6.1 % Normal 1.7-12.0 [facility] Comment on above: Performed By: #### P T, PTT #### [facility] [address] [place] [address] Dr. Idania Roldan NEUT # 2.5 103/ul Normal 1.4-6.[address] [facility] Comment on above: Performed By: #### P T, PTT #### [facility] [address] [place] [address] Dr. Idania Roldan Neutrophils/100 WBC (Bld) 53.4 % Normal 43.0-75.0 [facility] Comment on above: Performed By: #### P T, PTT #### [facility] [address] [place] [address] Dr. Idania Roldan Platelet mean volume (Bld) [ Entitic vol] 10.1 fL Normal 9.5-13.5 The [facility] Comment on above: Performed By: #### P T, PTT #### [facility] [address] [place] [address] Dr. Idania Roldan PLT 239 103/ul Normal 150-[address] [facility] Comment on above: Performed By: #### P T, PTT #### [facility] [address] [place] [address] Dr. Idania Roldan RBC 3.98 106/ul Critically low 4.20-5.40 The [facility] Comment on above: Performed By: #### P T, PTT #### [facility] [address] [place] [address] Dr. Idania Roldan WBC 4.6 103/ul Normal 4.0-11.[address] [facility] Comment on above: Performed By: #### P T, PTT #### [facility] [address] [address] [address] Idania Roldan PROF CHEM 8 (BAS METB)on Anion gap [Moles/Vol] 8.4 mmol/L Normal [facility] Comment on above: Performed By: #### B MP #### [facility] [address] [address] [address] Idania Roldan Calcium [Mass/Vol] 9.3 mg/dL Normal 8.5-10.1 [facility] Comment on above: Performed By: #### B MP #### [facility] [address] [address] [address] Idania Roldan Chloride [Moles/Vol] 103 mmol/L Normal 98-107 [facility] Comment on above: Performed By: #### B MP #### [facility] [address] [place] [address] Dr. Idania Roldan CO2 [Moles/Vol] 32.9 mmol/L Critically high 21.0-32.0 [facility] Comment on above: Performed By: #### B MP #### [facility] [address] [place] [address] Dr. Idania Roldan Creatinine [Mass/Vol] 0.70 mg/dL Normal 0.55-1.02 [facility] Comment on above: Performed By: #### B MP #### [facility] [address] [place] [address] Dr. Idania Roldan EGFR-AF CYPRIOT >60 Normal >=60 [facility] Comment on above: Performed By: #### B MP #### [facility] [address] [address] [address] Idania Roldan EGFR-NON AF CYPRIOT >60 Normal >=60 [facility] Comment on above: Performed By: #### B MP #### [facility] [address] [place] [address] Dr. Idania Roldan Glucose [Mass/Vol] 73 mg/dL Critically low 74-106 Th [facility] Comment on above: Performed By: #### B MP #### [facility] [address] [address] [address] Idania Roldan Potassium [Moles/Vol] 4.3 mmol/L Normal 3.5-5.1 [facility] Comment on above: Performed By: #### B MP #### [facility] [address] [place] [address] [address] Idania Roldan Sodium [Moles/Vol] 140 mmol/L Normal 136-145 The [facility] Comment on above: Performed By: #### B MP #### [facility] [address] [address] [address] Idania Roldan Urea nitrogen [Mass/Vol] 16.0 mg/dL Normal 7.0-18.0 [facility] Comment on above: Performed By: #### B MP #### [facility] [address] [place] [address] Dr. Idania Roldan Urea nitrogen/Creatinine [Mass ratio] 22.9 mg/mg Normal [facility] Comment on above: Performed By: #### B MP #### [facility] [address] [place] [address] Dr. Idania Roldan PROTIMEon 07-10-2022 INR Coag (PPP) [Relative time] 1.00 {INR} Normal [facility] Comment on above: Performed By: #### P T, PTT #### [facility] [address] [place] [address] Dr. Idania Roldan INR GUIDELINES SEE BELOW Normal The [facility] Comment on above: Result Comment: TARUN RED INR: 2.0 - 3.0 CONDITIONS NOT LISTED BELOW 2.5 - 3.5 FOR PROSTHETIC HEART VALVE REPLACEMENT 2.5 - 3.5 RECURRENT THROMBOSIS Performed By: #### P T, PTT #### [facility] [address] [place] [address] Dr. Idania Roldan PT Coag (PPP) [Time] 10.8 s Normal 9.0-11.6 [facility] Comment on above: Performed By: #### P T, PTT #### [facility] [address] [place] [address] Dr. Idania Roldan PTTon 07-10-2022 aPTT Coag (Bld) [Time] 29.3 s Normal 22.3-36.2 Th e [facility] Comment on above: Performed By: #### P T, PTT #### [facility] [id number] Idania Roldan Operative Reporton Operative Report MR#: [id number] I [facility] Pt. Name: Elvi Moore Room #: [id number] Discharge 06/01/2022 Date: Birthdate: 1980 OPERATIVE REPORT DATE OF SURGERY: 06/01/2022 SURGEON: Kevin Lane M.D. ESTATE PLANNING COUNSELOR: Duy Cavazos ANESTHESIA: General anesthesia. ESTIMATED BLOOD [...] arthrotomy was closed with soft #2 interrupted [id number] suture. The remainder of the incision closed in layered fashion. Sterile dressing applied. At the conclusion of the case, all sponge and needle counts correct. I was present for the critical portions of this case. Electronically Signed by: Kevin Lane M.D. 06/09/2022 07:[address] M.D. Date Dict: 06/03/2022/07:15 Christine/Kevin Lane M.D. Date Trans: 06/03/2022 08:09 Christine/taylor [id number] cc: Arleth Acharya M.D. [address], [facility] [place] [id number] Normal The [facility] *ANAEROBIC CULTUREon 022 *ANAEROBIC CULTURE Clinical Report: (D) Specimen/Source: FLUID/INTRAOP SPEC Collected: 06/01/2022 14:08 Status: Final Last Updated: 06/06/2022 06:35 (1) 1. LEFT KNEE JOINT FLUID CULT RES (Final) No Anaerobes Isolated 5 Days Normal The [facility] Comment on above: Order Comment: 1. LE FT KNEE JOINT FLUID Performed By: #### 3 0312 ####[facility] *ANAEROBIC CULTURE Clinical Report: (D) Specimen/Source: TISSUE/INTRAOP SPEC Collected: 06/01/2022 14:08 Status: Final Last Updated: 06/06/2022 06:35 (1) 2. LEFT KNEE MEDIAL SYNOVIUM CULT RES (Final) No Anaerobes Isolated 5 Days Normal [facility] Comment on above: Order Comment: 2. LE FT KNEE MEDIAL SYNOVIUM Performed By: #### 6 1405 #### [facility] [address] *ANAEROBIC CULTURE Clinical Report: (D) Specimen/Source: TISSUE/INTRAOP SPEC Collected: 06/01/2022 14:08 Status: Final Last Updated: 06/06/2022 06:35 (1) 3. LEFT KNEE LATERAL SYNOVIUM CULT RES (Final) No Anaerobes Isolated 5 Days Normal [facility] Comment on above: Order Comment: 3. LE FT KNEE LATERAL SYNOVIUM Performed By: #### 6 1405 #### [facility] [address] *BODY FLUID CULTUREon 2021 *BODY FLUID CULTURE Clinical Report: (D) Specimen/Source: FLUID/INTRAOP SPEC Collected: 06/01/2022 14:08 Status: Final Last Updated: 06/06/2022 06:39 (1) 1. LEFT KNEE JOINT FLUID GRAM (Final) Quantity Not Sufficient CULT RES (Final) No Growth Day 5 Normal The [facility] Comment on above: Order Comment: 1. LE FT KNEE JOINT FLUID Performed By: #### 3 0318 ####[facility] *TISSUE CULTUREon 06-01-2022 *TISSUE CULTURE Clinical Report: (D) Specimen/Source: TISSUE/INTRAOP SPEC Collected: 06/01/2022 14:08 Status: Final Last Updated: 06/06/2022 06:40 (1) 2. LEFT KNEE MEDIAL SYNOVIUM GRAM (Final) Many Polys No Bacteria Seen CULT RES (Final) No Growth Day 5 Normal The [facility] Comment on above: Order Comment: 2. LE FT KNEE MEDIAL SYNOVIUM Performed By: #### 3 0338 ####[facility].[address] *TISSUE CULTURE Clinical Report: (D) Specimen/Source: TISSUE/INTRAOP SPEC Collected: 06/01/2022 14:08 Status: Final Last Updated: 06/06/2022 06:39 (1) 3. LEFT KNEE LATERAL SYNOVIUM GRAM (Final) Many Polys No Bacteria Seen CULT RES (Final) No Growth Day 5 Normal The [facility] Comment on above: Order Comment: 3. LE FT KNEE LATERAL SYNOVIUM Performed By: #### 3 0338 ####[facility] [facility], [place] [id number] [place] [address] POC GLUCOSE LABon 06-01-2022 Glucose [Mass/Vol] 86 mg/dL Normal 70-100 The [facility] Comment on above: Performed By: #### 8 [id number] #### [facility] [address] [place] [address], [facility] PORTABLE KNEE LEFT 2 VWSon 0 06-01-2022 PORTABLE KNEE LEFT 2 S [facility] Department of Radiology [address] [place] [id number] Patient Name: ELVI MOORE : 1980 Sex: F Age: Race: White Pt. Location: OUTP Patient Status: D Ordered Date: 06/01/2022 3:05:00 PM Completed Date: 06/01/2022 04:06 PM Requesting Provider: ALVIN CAVAZOS Attending Provider: KEVIN LANE Report Copy To: Signs & Symptoms: Post OP History: Comments: Hardware Evaluation, in PACU Exam: PORTABLE KNEE LEFT 2 [facility] PORTABLE KNEE LEFT 2 [facility] 06/01/2022 4:06 PM CLINICAL INDICATIONS: Pain. Knee [...] planned Electronically signed: Yvette Andrade. Transcribed by: [email or web address], User Resident: Electronically Signed by: YVETTE ANDRADE @ 06/02/2022 08:53 AM Normal The [facility] Comment on above: Order Comment: Hardw are Evaluation, in PACU *MRSA/MSSA DNA NASALon 05-26 *MRSA/MSSA DNA NASAL Clinical Report: (D ) Specimen: NASAL SWAB Collected: 05/26/2022 15:23 Status: Final Last Updated: 05/27/2022 13:43 MSSA DNA (Final) Negative MRSA DNA (Final) Negative Normal The [facility] Comment on above: Performed By: #### 3 1595 #### [facility] [address] C REACTIVE PROTEINon 022 CRP [Mass/Vol] 1.3 mg/L Normal 0.0-7.0 The [facility] Comment on above: Performed By: #### 6 1405 #### [facility] [address] [place] [address], [facility] CBC W/DIFFon 05-26-2022 ABS IMM GRANS 0.0 10*3/uL Normal 0.0-0.2 The [facility] Comment on above: Performed By: #### 6 1405 #### [facility] [address] [place] [address], [facility] ABS NEUTROPHILS 2.5 10*3/uL Normal 1.6-7.[address] [facility] Comment on above: Performed By: #### 6 1405 #### [facility] [address] [place] [address], [facility] Basophils (Bld) [#/Vol] 0.0 10*3/uL Normal 0.0-0.2 [facility] Comment on above: Performed By: #### 6 1405 #### [facility] [address] [place] [address], [facility] Basophils/100 WBC (Bld) 0.3 % Normal 0.0-1.0 T ramiro [facility] Comment on above: Performed By: #### 6 1405 #### [facility] [address] [place] [address], [facility] Eosinophils (Bld) [#/Vol] 0.1 10*3/uL Normal 0.0-0.5 [facility] Comment on above: Performed By: #### 6 1405 #### [facility] [address] [place] [address], [facility] Eosinophils/100 WBC (Bld) 1.5 % Normal 0.0-6.0 The [facility] Comment on above: Performed By: #### 6 1405 #### [facility] [address] [facility] [place] [place] [address], [facility] Erythrocyte distribution wid th (RBC) [Ratio] 15.9 % High 11.5-15.[address] [facility] Comment on above: Performed By: #### 6 1405 #### [facility] [address] [facility] [place] [place] [address], [facility] Hematocrit (Bld) [Volume fraction] 35.0 % Low 36.0-45.[address] [facility] Comment on above: Performed By: #### 6 1405 #### [facility] [address] [place] [address], [facility] Hemoglobin (Bld) [Mass/Vol] 10.6 g/dL Low 12.0-15. 0 The [facility] Comment on above: Performed By: #### 6 1405 #### [facility] [address] [place] [address], [facility] IMMATURE GRANS 0.2 % Normal 0.0-1.0 The [facility] Comment on above: Performed By: #### 6 1405 #### [facility] [address] [place] [address], [facility] Lymphocytes (Bld) [#/Vol] 2.8 10*3/uL Normal 1.2-4.0 The [facility] Comment on above: Performed By: #### 6 1405 #### [facility] [address] [place] [address], [facility] Lymphocytes/100 WBC (Bld) 48.0 % High 20.0-45.0 The [facility] Comment on above: Performed By: #### 6 1405 #### [facility] [address] [facility] [place] [address], [facility] MCH (RBC) [Entitic mass] 24.5 pg Low 27.0-33.0 The [facility] Comment on above: Performed By: #### 6 1405 #### [facility] [address] [facility] [place] [place] [address], [facility] MCHC (RBC) [Mass/Vol] 30.3 g/dL Low 32.0-35.0 [facility] Comment on above: Performed By: #### 6 1405 #### [facility] [address] [facility] [place] [place] [address], [facility] MCV (RBC) [Entitic vol] 81.0 fL Low 82.0-98.0 T he [facility] Comment on above: Performed By: #### 6 1405 #### [facility] [address] [place] [address], [facility] Monocytes (Bld) [#/Vol] 0.4 10*3/uL Normal 0.1-1.0 The [facility] Comment on above: Performed By: #### 6 1405 #### [facility] [address] [place] [address], [facility] MONOS 6.8 % Normal 5.0-12.0 The [facility] Comment on above: Performed By: #### 6 1405 #### [facility] [address] [place] [address], [facility] Neutrophils/100 WBC (Bld) 43.2 % Normal 40.0-72.0 The [facility] Comment on above: Performed By: #### 6 1405 #### [facility] [address] [place] [address], [facility] Nucleated RBC/100 WBC (Bld) [Ratio] 0 % Normal 0-0 The [facility] Comment on above: Performed By: #### 6 1405 #### [facility] [address] [place] [address], [facility] PLAT CNT 246 10*3/uL Normal 150-400 [facility] Comment on above: Performed By: #### 6 1405 #### [facility] [address] [place] [address], [facility] RBC (Bld) [#/Vol] 4.32 10*6/uL Normal 3.80-5.00 The [facility] Comment on above: Performed By: #### 6 1405 #### [facility] [address] [place] [address], [facility] WBC (Bld) [#/Vol] 5.87 10*3/uL Normal 4.00-10.60 The [facility] Comment on above: Performed By: #### 6 1405 #### [facility] [address] HEMOGLOBIN A1Con 05-26-2022 Glucose [Moles/Vol] 100 mmol/L Normal The [facility] Comment on above: Performed By: #### 3 1791 #### [facility] [address] [place] [address], [facility] HbA1c (Bld) [Mass fraction] 5.1 % Normal 4.0-6.0 The [facility] Comment on above: Performed By: #### 3 1791 #### [facility] [address] [place] [address], [facility] SEDIMENTATION RATEon 022 SED RATE 17 mm/hr Normal 0-20 The [facility] Comment on above: Performed By: #### 6 1405 #### [facility] [address] [place] [address], [facility] US KIDNEYS BLADDERon 022 US KIDNEYS BLADDER [...] RUSSELL DUFF Date: 2022-05-02 16:18 Normal The [facility] l CBC AUTO DIFFon 04-29-2022 BASO # 0.0 103/ul Normal 0.0-0.1 [facility] ospital Comment on above: Performed By: #### B MP, LIPA, YVETTE, LIVER #### [facility] [address] [place] [address] Dr. Idania Roldan Basophils/100 WBC (Bld) 0.3 % Normal 0.2-2.0 [facility] Comment on above: Performed By: #### B MP, LIPA, YVETTE, LIVER #### [facility] [address] [place] [address] Dr. Idania Roldan EO # 0.1 103/ul Normal 0.0-0.7 [facility]ital Comment on above: Performed By: #### B MP, LIPA, YVETTE, LIVER #### [facility] [address] [place] [address] Dr. Idania Roldan Eosinophils/100 WBC (Bld) 0.9 % Normal 0.9-7.0 [facility] Comment on above: Performed By: #### B MP, LIPA, YVETTE, LIVER #### [facility] [address] [place] [address] Dr. Idania Roldan Erythrocyte distribution wid th (RBC) [Ratio] 15.4 % Critically high 11.0-15.0 [facility] Comment on above: Performed By: #### B MP, LIPA, YVETTE, LIVER #### [facility] [address] [place] [address] Dr. Idania Roldan Hematocrit (Bld) [Volume fraction] 36.0 % Normal 3 6.0-48.0 The [facility] Comment on above: Performed By: #### B MP, LIPA, YVETTE, LIVER #### [facility] [address] [place] [address] Dr. Idania Roldan Hemoglobin (Bld) [Mass/Vol] 11.2 g/dL Critically low 12.0 -16.0 [facility] Comment on above: Performed By: #### B MP, LIPA, YVETTE, LIVER #### [facility] [address] [place] [address] Dr. Idania Roldan IG # 0.02 10e3/ul Normal 0.00-0.03 The [facility] Comment on above: Performed By: #### B MP, LIPA, YVETTE, LIVER #### [facility] [address] [place] [address] Dr. Idania Roldan IG % 0.3 % Normal 0.0-0.[address] [facility]spital Comment on above: Performed By: #### B MP, LIPA, YVETTE, LIVER #### [facility] [address] [place] [address] Dr. Idania Roldan LYMPH # 2.5 103/ul Normal 1.2-3.[address] [facility] ospital Comment on above: Performed By: #### B MP, LIPA, YVETTE, LIVER #### [facility] [address] [place] [address] Dr. Idania Roldan Lymphocytes/100 WBC (Bld) 36.2 % Normal 20.5-60.0 [facility] Comment on above: Performed By: #### B MP, LIPA, YVETTE, LIVER #### [facility] [address] [place] [address] Dr. Idania Roldan MANUAL DIFF REQ NO Normal The [facility] Comment on above: Performed By: #### B MP, LIPA, YVETTE, LIVER #### [facility] [address] [place] [address] Dr. Idania Roldan MCH (RBC) [Entitic mass] 24.9 pg Critically low 26.7-34 .0 [facility] Comment on above: Performed By: #### B MP, LIPA, YVETTE, LIVER #### [facility] [address] [place] [address] Dr. Idania Roldan MCHC (RBC) [Mass/Vol] 31.1 g/dL Normal 29.9-35.2 [facility] Comment on above: Performed By: #### B MP, LIPA, YVETTE, LIVER #### [facility] [address] [place] [address] Dr. Idania Roldan MCV (RBC) [Entitic vol] 80.2 fL Critically low 81.0-99. 0 [facility] Comment on above: Performed By: #### B MP, LIPA, YVETTE, LIVER #### [facility] [address] [place] [address] Dr. Idania Roldan MONO # 0.5 103/ul Normal 0.3-0.8 [facility] Comment on above: Performed By: #### B MP, LIPA, YVETTE, LIVER #### [facility] [address] [place] [address] Dr. Idania Roldan Monocytes/100 WBC (Bld) 6.7 % Normal 1.7-12.0 [facility] Comment on above: Performed By: #### B MP, LIPA, YVETTE, LIVER #### [facility] [address] [place] [address] Dr. Idania Roldan NEUT # 3.8 103/ul Normal 1.4-6.[address] [facility] Comment on above: Performed By: #### B MP, LIPA, YVETTE, LIVER #### [facility] [address] [place] [address] Dr. Idania Roldan Neutrophils/100 WBC (Bld) 55.6 % Normal 43.0-75.0 The [facility] Comment on above: Performed By: #### B MP, LIPA, YVETTE, LIVER #### [facility] [address] [place] [address] Dr. Idania Roldan Platelet mean volume (Bld) [Entitic vol] 9.9 fL Normal 9.5-13.5 The [facility] Comment on above: Performed By: #### B MP, LIPA, YVETTE, LIVER #### [facility] [address] [place] [address] Dr. Idania Roldan PLT 265 103/ul Normal 150-[address] [facility]ital Comment on above: Performed By: #### B MP, LIPA, YVETTE, LIVER #### [facility] [address] [place] [address] Dr. Idania Roldan RBC 4.49 106/ul Normal 4.20-5.40 The [facility] Comment on above: Performed By: #### B MP, LIPA, YVETTE, LIVER #### [facility] [address] [place] [address] Dr. Idania Roldan WBC 6.8 103/ul Normal 4.0-11.[address] [facility] Comment on above: Performed By: #### B MP, LIPA, YVETTE, LIVER #### [facility] [address] [place] [address] Dr. Idania Roldan ER URINE PROFILEon 2 Bilirubin Ql (U) Negative Normal NEGATIVE The [facility] Comment on above: Performed By: #### P T, PTT #### [facility] [address] [place] [address] Dr. Idania Roldan Clarity (U) CLEAR Normal CLEAR The [facility] Comment on above: Performed By: #### P T, PTT #### [facility] [address] [place] [address] Dr. Idania Roldan Color (U) LT. YELLOW Normal YELLOW The [facility]ital Comment on above: Performed By: #### P T, PTT #### [facility] [address] [place], [place] [id number] Dr. Idania MENDOSA A micrscopic examina tion will be performed if indicated. Normal The [facility] l Comment on above: Performed By: #### P T, PTT #### [facility] [address] [place] [address] Dr. Idania Roldan Glucose Ql (U) Negative Normal NEGATIVE The [facility] Comment on above: Performed By: #### P T, PTT #### [facility] [address] [address] [address] Idania Roldan Hemoglobin Ql (U) LARGE Abnormal NEGATIVE The [facility] Comment on above: Performed By: #### P T, PTT #### [facility] [address] [place] [address] Dr. Idania Roldan Ketones Ql (U) Negative Normal NEGATIVE The [facility] Comment on above: Performed By: #### P T, PTT #### [facility] [address] [place] [address] Dr. Idania Roldan LEUKOCYTES TRACE Abnormal NEGATIVE The [facility]ital Comment on above: Performed By: #### P T, PTT #### [facility] [address] [place] [address] Dr. Idania Roldan Nitrite Ql (U) Negative Normal NEGATIVE The [facility] Comment on above: Performed By: #### P T, PTT #### [facility] [address] [place] [address] Dr. Idania Roldan pH (U) 6.0 [pH] Normal 5-[address] [facility] Comment on above: Performed By: #### P T, PTT #### [facility] [address] [place] [address] Dr. Idania Roldan SPEC GRAVITY 1.010 Normal 1.005-<=1.025 The [facility] Comment on above: Performed By: #### P T, PTT #### [facility] [address] [address] [address] Idania Roldan UA PROTEIN Negative Normal NEGATIVE/ TRACE The [facility] Comment on above: Performed By: #### P T, PTT #### [facility] [address] [place] [address] Dr. Idania Roldan UR MICRO IND INDICATED Normal [facility] Comment on above: Performed By: #### P T, PTT #### [facility] [address] [place] [address] Dr. Idania Roldna Urobilinogen Qn (U) 0.2 {Bryan'U}/dL Normal 0.2 - 1. 0 [facility] Comment on above: Performed By: #### P T, PTT #### [facility] [address] [place] [address] Dr. Idania Rodlan PROF CHEM 8 (BAS METB)on Anion gap [Moles/Vol] 10.9 mmol/L Normal [facility] Comment on above: Performed By: #### P T, PTT #### [facility] [address] [place] [address] Dr. Idania Roldan Calcium [Mass/Vol] 8.9 mg/dL Normal 8.5-10.1 [facility] Comment on above: Performed By: #### P T, PTT #### [facility] [address] [place] [address] Dr. Idania Roldan Chloride [Moles/Vol] 104 mmol/L Normal 98-107 [facility] Comment on above: Performed By: #### P T, PTT #### [facility] [address] [place] [address] Dr. Idania Roldan CO2 [Moles/Vol] 28.9 mmol/L Normal 21.0-32.0 [facility] Comment on above: Performed By: #### P T, PTT #### [facility] [address] [place] [address] Dr. Idania Roldan Creatinine [Mass/Vol] 0.71 mg/dL Normal 0.55-1.02 [facility] Comment on above: Performed By: #### P T, PTT #### [facility] [address] [place] [address] Dr. Idania Roldan EGFR-AF CYPRIOT >60 Normal >=60 The [facility] Comment on above: Performed By: #### P T, PTT #### [facility] [address] [place] [address] Dr. Idania Roldan EGFR-NON AF CYPRIOT >60 Normal >=60 [facility] Comment on above: Performed By: #### P T, PTT #### [facility] [address] [place] [address] Dr. Idania Roldan Glucose [Mass/Vol] 88 mg/dL Normal 74-106 The [facility] Comment on above: Performed By: #### P T, PTT #### [facility] [address] [place] [address] Dr. Idania Roldan Potassium [Moles/Vol] 3.8 mmol/L Normal 3.5-5.1 [facility] Comment on above: Performed By: #### P T, PTT #### [facility] [address] [place] [address] Dr. Idania Roldan Sodium [Moles/Vol] 140 mmol/L Normal 136-145 The [facility] Comment on above: Performed By: #### P T, PTT #### [facility] [address] [place] [address] Dr. Idania Roldan Urea nitrogen [Mass/Vol] 13.0 mg/dL Normal 7.0-18.0 [facility] Comment on above: Performed By: #### P T, PTT #### [facility] [address] [place] [address] Dr. Idania Roladn Urea nitrogen/Creatinine [Mass ratio] 18.3 mg/mg Normal [facility] Comment on above: Performed By: #### P T, PTT #### [facility] [address] [place] [address] Dr. Idania Roldan URINE MICROSCOPIC ONLYon BACTERIA NONE SEEN Normal NONE SEEN The [facility] Comment on above: Performed By: #### P T, PTT #### [facility] [address] [place] [address] Dr. Idania Roldan Bacteria identified Cx Nom (U) NOT INDICATED Normal [facility] Comment on above: Performed By: #### P T, PTT #### [facility] [address] [place] [address] Dr. Idania Roldan CAST NONE SEEN Normal NONE SEEN The [facility] Comment on above: Performed By: #### P T, PTT #### [facility] [address] [place] [address] Dr. Idania Roldan Crystals LM Nom (Urine sed) NONE SEEN Normal NONE SEE N The [facility] Comment on above: Performed By: #### P T, PTT #### [facility] [address] [place] [address] Dr. Idania Roldan Epithelial cells LM Ql (Urine sed) FEW Abnormal N ONE SEEN /RARE The [facility] Comment on above: Performed By: #### P T, PTT #### [facility] [address] [place] [address] Dr. Idania Roldan MUCOUS NONE SEEN Normal NONE SEEN The [facility] Comment on above: Performed By: #### P T, PTT #### [facility] [address] [place] [address] Dr. Idania Roldan RBC 50-75 Abnormal 0-[address] [facility]ital Comment on above: Performed By: #### P T, PTT #### [facility] [address] [place] [address] Dr. Idania Roldan WBC 0-2 Abnormal NONE SEEN The [facility] Comment on above: Performed By: #### P T, PTT #### [facility] [address] [place] [address] Dr. Idania Roldan XR ABD FLAT UP_PA [...] RUSSELL DUFF Date: 2022-04-29 13:37 Normal [facility] US KIDNEYS BLADDERon 022 US KIDNEYS BLADDER [...] RUSSELL DUFF Date: 2022-04-16 18:24 Normal [address] [facility] LOWER EXTREMITY WO CONTRA ST LEFTon 04-07-2022 CT LOWER EXTREMITY WO CONTRAST LEFT [facility] Department of Radiology [address] [place] [id number] Patient Name: ELVI MOORE : 1980 Sex: F Age: Race: White Pt. Location: Patient Status: D Ordered Date: 03/24/2022 9:30:00 AM Completed Date: 04/07/2022 05:13 PM Requesting Provider: KEVIN LANE Attending Provider: KEVIN LANE Report Copy To: ARLETH ACHARYA Signs & Symptoms: Z96.659 Presence of unspecified artificial knee joint I10 History: [place] Comments: , left knee Exam: CT LOWER [...] arthroplasty. Electronically signed: Elvis Perez. Transcribed by: [email or web address], User Resident: Electronically Signed by: ELVIS PEREZ @ 04/12/2022 09:46 AM Normal The [facility] Comment on above: Order Comment: , lef t knee C REACTIVE PROTEINon 022 CRP [Mass/Vol] 2.2 mg/L Normal 0.0-7.0 The [facility] Comment on above: Performed By: #### 3 1791 #### [address] SEDIMENTATION RATEon 022 SED RATE 30 mm/hr High 0-20 [facility] Comment on above: Performed By: #### 5 6506 #### [facility] [address] [facility] KNEE LEFT 1 OR 2 VWSon 02-12 KNEE LEFT 1 OR 2 VWS [facility] Department of Radiology [address] [place] [id number] Patient Name: ELVI OMORE : 1980 Sex: F Age: Race: White Pt. Location: Patient Status: O Ordered Date: 02/12/2022 7:30:00 AM Completed Date: 02/12/2022 10:29 AM Requesting Provider: KEVIN LANE Attending Provider: KEVIN LANE Report Copy To: Signs & Symptoms: LT KNEE REANNA History: Comments: LT KNEE REANNA Exam: KNEE LEFT 1 OR 2 VWS KNEE LEFT 1 OR 2 VWS intraoperative fluoroscopy 02/12/2022 10:29 AM CLINICAL INDICATIONS: [...] report. Electronically signed: Sathya Christianson. Transcribed by: [email or web address], User Resident: Electronically Signed by: SATHYA CHRISTIANSON @ 02/13/2022 10:48 PM Normal The [facility] Comment on above: Order Comment: LT KN EE REANNA Operative Reporton 2 Operative Report MR#: [id number] S [facility] Pt. Name: Elvi Moore Room #: 0C Discharge Date: Birthdate: 1980 OPERATIVE REPORT DATE OF SURGERY: 02/12/2022 SURGEON: Kevin Lane M.D. ESTATE PLANNING COUNSELOR: None. PREOPERATIVE DIAGNOSIS: Left total knee arthroplasty [...] Lane M.D. Date Trans: 02/12/2022 09:35 A/taylor [id number] cc: Arleth Acharya M.D. [address] [place] [id number] Normal The [facility] POC GLUCOSE LABon 02-12-2022 Glucose [Mass/Vol] 96 mg/dL Normal 70-100 The [facility] Comment on above: Performed By: #### 8 5499 ####[facility] [facility], [place] [id number] [place] [address] C REACTIVE PROTEINon 022 CRP [Mass/Vol] 1.7 mg/L Normal 0.0-7.0 [facility] Comment on above: Performed By: #### 6 1405 #### [facility] [address] [place] [address], [facility] SEDIMENTATION RATEon 022 SED RATE 18 mm/hr Normal 0-20 [facility] Comment on above: Performed By: #### 6 1405 #### [facility] [address] [place] [address], [facility] KNEE LEFT 3 VWSon 12-26-2021 KNEE LEFT 3 VWS [facility] Department of Radiology [address] [place] [phone] Patient Name: ELVI MOORE : 1980 Sex: F Age: Race: White Pt. Location: Patient Status: Ordered Date: 12/26/2021 1:45:00 PM Completed Date: 12/26/2021 01:50 PM Requesting Provider: JORDEN BRODY Attending Provider: Report Copy To: Signs & Symptoms: Z47.1 Aftercare following joint replacement surgery I10 History: [place] Comments: , , , Ordering Provider - JOREDNMICHELLE MORRISONALBERT AGUILAR , Exam: KNEE LEFT 3 [facility] KNEE LEFT 3 S 12/26/2021 1:50 PM CLINICAL INDICATIONS: Z47.1 Aftercare [...] report. Electronically signed: Yvette Desai. Transcribed by: [email or web address], User Resident: CHRISTELLE ABDI Electronically Signed by: YVETTE DESAI @ 12/26/2021 04:27 PM I personally read this/these film(s) with this resident Normal The [facility] Comment on above: Order Comment: , , = ========= , Ordering Provider - JORDEN HERRPaco AGUILAR , KNEE LEFT 3 [facility] 12-09-2021 KNEE LEFT 3 [facility] Department of Radiology [address] [place] [id number] Patient Name: ELVI MOORE : 1980 [...] changes. Electronically signed: Ezio Roberts. Transcribed by: [email or web address], User Resident: Electronically Signed by: EZIO ROBERTS @ 12/10/2021 08:39 AM Normal [facility] Operative Reporton Operative Report MR#: [id number] S [facility] Pt. Name: Elvi Moore Room #: 0C Discharge Date: Birthdate: 1980 OPERATIVE REPORT DATE OF SURGERY: 10/30/2021 SURGEON: Kevin Lane M.D. ESTATE PLANNING COUNSELOR: 1. MD Waleska. 2. LAVON Quinones. ANESTHESIA: [...] noted that it was acceptable. The drop salome also noted that the cut appeared to [...] arthrotomy was closed itself with #2 interrupted qmgipm-bg-[id number] suture. The remainder of the incision was closed in a layered fashion. Sterile dressing was applied. At the conclusion of the case, all sponge and needle counts were correct. I was present for the critical portions of this case. Electronically Signed by: Kevin Lane M.D. 10/30/2021 07:[address] M.D. Date Dict: 10/30/2021/11:00 A/Kevin Lane M.D. Date Trans: 10/30/2021 12:34 P/mmo [id number] cc: Arleth Acharya M.D. [address], [facility] [id number] Nasir Rony Thacker, DO [address] [facility] [address] [place] [id number] Normal [facility] POC GLUCOSE LABon 10-30-2021 Glucose [Mass/Vol] 88 mg/dL Normal 70-100 The [facility] Comment on above: Performed By: #### 8 5499 ####[address] [address], [facility] PORTABLE KNEE LEFT 2 VWSon 0 10-30-2021 PORTABLE KNEE LEFT 2 VWS [facility] Department of Radiology [address] [place] [address] Patient Name: ELVI MOORE : 1980 Sex: F Age: Race: White Pt. Location: OUTP Patient Status: O Ordered Date: 10/30/2021 8:45:00 AM Completed Date: 10/30/2021 10:58 AM Requesting Provider: WHITLYE BONILLA Attending Provider: KEVIN LANE Report Copy To: Signs & Symptoms: Pain History: Comments: Hardware Evaluation, Postop PACU films for L knee s/p TKA. AP and lateral please Exam: PORTABLE KNEE LEFT 2 VWS PORTABLE KNEE LEFT 2 S 10/30/2021 10:58 AM 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 Transcribed by: [email or web address], User Resident: Electronically Signed by: YVETTE ANDRADE @ 10/30/2021 11:20 AM Normal [facility] Comment on above: Order Comment: Hardw are Evaluation, Postop PACU films for L knee s/p TKA. AP and lateral please *MRSA/MSSA DNA NASALon 10-07 *MRSA/MSSA DNA NASAL Clinical Report: (D ) Specimen: NASAL SWAB Collected: 10/07/2021 10:51 Status: Final Last Updated: 10/07/2021 15:44 MSSA DNA (Final) Negative MRSA DNA (Final) Negative Normal [facility] Comment on above: Performed By: #### 3 1595 ####[facility] [facility] [address], [facility] APTTon 10-07-2021 aPTT Coag (Bld) [Time] 32.2 s Normal 25.0-35.0 Th e [facility] Comment on above: Result Comment: ALL RESULTS [...] Performed By: #### 3 1791 #### [facility] [address] [place] [address], [facility] BASIC METABOLIC PANELon - Calcium [Mass/Vol] 9.2 mg/dL Normal 8.6-10.3 [facility] Comment on above: Performed By: #### 3 1791 #### [facility] [address] [facility] [place] [address], [facility] Chloride [Moles/Vol] 106 mmol/L Normal 98-107 [facility] Comment on above: Performed By: #### 3 1791 #### [facility] [address] [place] [address], [place] CO2 [Moles/Vol] 28 mmol/L Normal 21-31 [facility] Comment on above: Performed By: #### 3 1791 #### [facility] [address] [place] [address], [place] Creatinine [Mass/Vol] 0.77 mg/dL Normal 0.60-1.20 [facility] Comment on above: Performed By: #### 3 1791 #### [facility] [address] [place] [address], [place] GFR/1.73 sq M.predicted brook g blacks MDRD (S/P/Bld) [Vol rate/Area] mL/min/{1.73_m2} Normal >60 [facility] Comment on above: Performed By: #### 3 1791 #### [facility] [address] [place] [address], [place] GFR/1.73 sq M.predicted brook g non-blacks MDRD (S/P/Bld) [Vol rate/Area] mL/min/{1.73_m2} Normal >60 [facility] Comment on above: Performed By: #### 3 1791 #### [facility] [address] [place] [address], [place] Glucose [Mass/Vol] 84 mg/dL Normal 70-100 The [facility] Comment on above: Performed By: #### 3 1791 #### [facility] [address] [place] [address], [place] Potassium [Moles/Vol] 4.4 mmol/L Normal 3.5-5.1 [facility] Comment on above: Performed By: #### 3 1791 #### [facility] [address] [place] [address], [place] Sodium [Moles/Vol] 142 mmol/L Normal 136-145 The [facility] Comment on above: Performed By: #### 3 1791 #### [facility] [address] [place] [address], [place] Urea nitrogen [Mass/Vol] 12 mg/dL Normal 7-25 [facility] Comment on above: Performed By: #### 3 179 #### [facility] [address] [place] [address], [place] CBC W/DIFFon 10-07-2021 ABS IMM GRANS 0.0 10*3/uL Normal 0.0-0.2 The [facility] Comment on above: Performed By: #### 6 1405 #### [facility] [address] [place] [address], [facility] ABS NEUTROPHILS 4.7 10*3/uL Normal 1.6-7.[address] [facility] Comment on above: Performed By: #### 6 1405 #### [facility] [address] [facility] [place] [place] [address], [facility] Basophils (Bld) [#/Vol] 0.0 10*3/uL Normal 0.0-0.2 [facility] Comment on above: Performed By: #### 6 1405 #### [facility] [address] [facility] [place] [place] [address], [facility] Basophils/100 WBC (Bld) 0.3 % Normal 0.0-1.0 Naty rubio [facility] Comment on above: Performed By: #### 6 1405 #### [facility] [address] [facility] [place] [place] [address], [facility] Eosinophils (Bld) [#/Vol] 0.2 10*3/uL Normal 0.0-0.5 [facility] Comment on above: Performed By: #### 6 1405 #### [facility] [address] [facility] [place] [place] [address], [facility] Eosinophils/100 WBC (Bld) 1.9 % Normal 0.0-6.0 [facility] Comment on above: Performed By: #### 6 1405 #### [facility] [address] [place] [address], [facility] Erythrocyte distribution wid th (RBC) [Ratio] 14.0 % Normal 11.5-15.[address] [facility] Comment on above: Performed By: #### 6 1405 #### [facility] [address] [facility] [place] [address], [facility] Hematocrit (Bld) [Volume fraction] 37.1 % Normal 36.0-45.[address] [facility] Comment on above: Performed By: #### 6 1405 #### [facility] [address] [place] [address], [facility] Hemoglobin (Bld) [Mass/Vol] 11.3 g/dL Low 12.0-15. 0 [facility] Comment on above: Performed By: #### 6 1405 #### [facility] [address] [place] [address], [facility] IMMATURE GRANS 0.1 % Normal 0.0-1.0 The [facility] Comment on above: Performed By: #### 6 1405 #### [facility] [address] [facility] [place] [place] [address], [facility] Lymphocytes (Bld) [#/Vol] 2.5 10*3/uL Normal 1.2-4.0 [facility] Comment on above: Performed By: #### 6 1405 #### [facility] [address] [facility] [place] [place] [address], [facility] Lymphocytes/100 WBC (Bld) 31.6 % Normal 20.0-45.0 [facility] Comment on above: Performed By: #### 6 1405 #### [facility] [address] [facility] [place] [place] [address], [facility] MCH (RBC) [Entitic mass] 25.5 pg Low 27.0-33.0 [facility] Comment on above: Performed By: #### 6 1405 #### [facility] [address] [place] [address], [facility] MCHC (RBC) [Mass/Vol] 30.5 g/dL Low 32.0-35.0 [facility] Comment on above: Performed By: #### 6 1405 #### [facility] [address] [place] [address], [facility] MCV (RBC) [Entitic vol] 83.7 fL Normal 82.0-98.0 T he [facility] Comment on above: Performed By: #### 6 1405 #### [facility] [address] [place] [address], [facility] Monocytes (Bld) [#/Vol] 0.5 10*3/uL Normal 0.1-1.0 [facility] Comment on above: Performed By: #### 6 1405 #### [facility] [address] [place] [address], [facility] MONOS 6.0 % Normal 5.0-12.0 [facility] Comment on above: Performed By: #### 6 1405 #### [facility] [address] [facility] [place] [address], [facility] Neutrophils/100 WBC (Bld) 60.1 % Normal 40.0-72.0 [facility] Comment on above: Performed By: #### 6 1405 #### [facility] [address] [place] [address], [facility] Nucleated RBC/100 WBC (Bld) [Ratio] 0 % Normal 0-0 [facility] Comment on above: Performed By: #### 6 1405 #### [facility] [address] [place] [address], [facility] PLAT CNT 233 10*3/uL Normal 150-400 [facility] Comment on above: Performed By: #### 6 1405 #### [facility] [address] [place] [address], [facility] RBC (Bld) [#/Vol] 4.43 10*6/uL Normal 3.80-5.00 The [facility] Comment on above: Performed By: #### 6 1405 #### [facility] [address] [place] [address], [place] WBC (Bld) [#/Vol] 7.85 10*3/uL Normal 4.00-10.60 [facility] Comment on above: Performed By: #### 6 1405 #### [facility] [address] PROTHROMBIN TIMEon INR Coag (PPP) [Relative time] 0.94 {INR} Normal 0.91-1.[address] [facility] Comment on above: Result Comment: [facility] RECOMMENDED INR FO R WARFARIN THERAPY ------- [...] Performed By: #### 3 1791 #### [facility] [address] [place] [address], [facility] PT Coag (PPP) [Time] 12.6 s Normal 12.3-14.8 [facility] Comment on above: Result Comment: ALL RESULTS MUST BE INTERPRETED WITH RESPECT TO BLOOD DRAWING ARTIFACT OR DILUTION ERROR OF ANTICOAGULANT AT THE TIME OF SAMPLING. Performed By: #### 3 1791 #### [facility] [address] [place] [id number], [facility] TYPE AND SCREENon 10-07-2021 ABO INTERPRETATION O Normal [facility] Comment on above: Performed By: #### 3 5641 #### [facility] [address] [place] [address], [facility] RH INTERPRETATION Positive Normal The [facility] Comment on above: Performed By: #### 3 179 #### [facility] [address] [facility]. [address] *MRSA/MSSA DNA NASALon 08-12 *MRSA/MSSA DNA NASAL Clinical Report: (D ) Specimen: NASAL SWAB Collected: 08/12/2021 10:14 Status: Final Last Updated: 08/12/2021 18:58 MSSA DNA (Final) Negative MRSA DNA (Final) Negative Normal [facility] Comment on above: Performed By: #### 6 1405 #### [facility] [address] [place] [address], [facility] CBC W/DIFFon 08-12-2021 ABS IMM GRANS 0.0 10*3/uL Normal 0.0-0.2 [facility] Comment on above: Performed By: #### 6 1405 #### [facility] [address] [place] [address], [facility] ABS NEUTROPHILS 3.7 10*3/uL Normal 1.6-7.[address] [facility] Comment on above: Performed By: #### 6 1405 #### [facility] [address] [place] [address], [facility] Basophils (Bld) [#/Vol] 0.0 10*3/uL Normal 0.0-0.2 [facility] Comment on above: Performed By: #### 6 1405 #### [facility] [address] [place] [address], [facility] Basophils/100 WBC (Bld) 0.3 % Normal 0.0-1.0 T he [facility] Comment on above: Performed By: #### 6 1405 #### [facility] [address] [place] [address], [facility] Eosinophils (Bld) [#/Vol] 0.2 10*3/uL Normal 0.0-0.5 [facility] Comment on above: Performed By: #### 6 1405 #### [facility] [address] [place] [address], [facility] Eosinophils/100 WBC (Bld) 2.9 % Normal 0.0-6.0 [facility] Comment on above: Performed By: #### 6 1405 #### [facility] [address] [place] [address], [facility] Erythrocyte distribution wid th (RBC) [Ratio] 14.0 % Normal 11.5-15.[address] [facility] Comment on above: Performed By: #### 6 1405 #### [facility] [address] Hematocrit (Bld) [Volume fraction] 37.0 % Normal 36.0-45.[address] [facility] Comment on above: Performed By: #### 6 1405 #### [facility] [address] [place] [address], [facility] Hemoglobin (Bld) [Mass/Vol] 11.6 g/dL Low 12.0-15. 0 [facility] Comment on above: Performed By: #### 6 1405 #### [facility] [address] [place] [address], [facility] IMMATURE GRANS 0.3 % Normal 0.0-1.0 The [facility] Comment on above: Performed By: #### 6 1405 #### [facility] [address] [place] [address], [facility] Lymphocytes (Bld) [#/Vol] 2.1 10*3/uL Normal 1.2-4.0 [facility] Comment on above: Performed By: #### 6 1405 #### [facility] [address] [facility] [place] [place] [address], [facility] Lymphocytes/100 WBC (Bld) 32.5 % Normal 20.0-45.0 [facility] Comment on above: Performed By: #### 6 1405 #### [facility] [address] [place] [address], [facility] MCH (RBC) [Entitic mass] 26.8 pg Low 27.0-33.0 [facility] Comment on above: Performed By: #### 6 1405 #### [facility] [address] [facility] [place] [place] [address], [facility] MCHC (RBC) [Mass/Vol] 31.4 g/dL Low 32.0-35.0 [facility] Comment on above: Performed By: #### 6 1405 #### [facility] [address] [facility] [place] [place] [address], [facility] MCV (RBC) [Entitic vol] 85.5 fL Normal 82.0-98.0 T [facility] Comment on above: Performed By: #### 6 1405 #### [facility] [address] [place] [address], [facility] Monocytes (Bld) [#/Vol] 0.5 10*3/uL Normal 0.1-1.0 [facility] Comment on above: Performed By: #### 6 1405 #### [facility] [address] [place] [address], [facility] MONOS 6.9 % Normal 5.0-12.0 [facility] Comment on above: Performed By: #### 6 1405 #### [facility] [address] [place] [address], [facility] Neutrophils/100 WBC (Bld) 57.1 % Normal 40.0-72.0 [facility] Comment on above: Performed By: #### 6 1405 #### [facility] [address] [place] [address], [facility] Nucleated RBC/100 WBC (Bld) [Ratio] 0 % Normal 0-0 [facility] Comment on above: Performed By: #### 6 1405 #### [facility] [address] [facility] [facility] [place] [address], [facility] PLAT CNT 223 10*3/uL Normal 150-400 [facility] Comment on above: Performed By: #### 6 1405 #### [facility] [address] [facility] [place] [address], [facility] RBC (Bld) [#/Vol] 4.33 10*6/uL Normal 3.80-5.00 [facility] Comment on above: Performed By: #### 6 1405 #### [facility] [address] [place] [address], [facility] WBC (Bld) [#/Vol] 6.55 10*3/uL Normal 4.00-10.60 [facility] Comment on above: Performed By: #### 6 1405 #### [facility] [address] [place] [address], [facility] HEMOGLOBIN A1Con 08-12-2021 Glucose [Moles/Vol] 103 mmol/L Normal [facility] Comment on above: Performed By: #### 3 1791 #### [facility] [address] [place] [address], [facility] HbA1c (Bld) [Mass fraction] 5.2 % Normal 4.0-6.0 [facility] Comment on above: Performed By: #### 3 1791 #### [facility] [address] [place] [address], [facility] KNEE LEFT 3 VWSon 08-12-2021 KNEE LEFT 3 S [facility] Department of Radiology [address] [place] [id number] Patient Name: ELVI MOORE : 1980 Sex: F Age: Race: White Pt. Location: Patient Status: O Ordered Date: 08/12/2021 8:40:00 AM Completed Date: 08/12/2021 08:41 AM Requesting Provider: KEVIN LANE Attending Provider: KEVIN LANE Report Copy To: SELF, REFERRED Signs & Symptoms: M25.562 Pain in left knee I10 History: Comments: evaluate Exam: KNEE LEFT 3 VWS KNEE LEFT 3 S 08/12/2021 8:42 AM CLINICAL INDICATIONS: M25.562 Pain [...] report. Electronically signed: Jah Juarez. Transcribed by: [email or web address], User Resident: JODY KEITH Electronically Signed by: JAH JUAREZ @ 08/12/2021 03:46 PM I personally read this/these film(s) with this resident Normal [facility] Comment on above: Order Comment: evalu ate Amylaseon 10-09-2018 Amylase enzyme act/vol 56 U/L Normal 28-100 [facility] Comment on above: Performed By: #### L IP, CDP, CP, YVETTE ####[address] , [place] [address] CBC with Diffon 10-09-2018 Abs. Basophil <0.03 Normal 0.00-0.20 [facility] Comment on above: Performed By: #### L IP, CDP, CP, YVETTE ####[address] , [place] [address] Abs.Imm.Granulocyte <0.03 Normal 0.00-0.30 [facility] Comment on above: Performed By: #### L IP, CDP, CP, YVETTE ####[address] , [place] [address] Abs.Neutrophil (Seg) 3.08 k/uL Normal 1.50-8.10 [facility] Comment on above: Performed By: #### L IP, CDP, CP, YVETTE ####[address] , [place] [address] Basophils/100 WBC Auto (Bld) 0 % Normal 0-2 [facility] Comment on above: Performed By: #### L IP, CDP, CP, YVETTE ####[address] , [place] [address] Eosinophils Auto #/vol (Bld) 0.16 10*3/uL Normal 0.00- 0.44 [facility] Comment on above: Performed By: #### L IP, CDP, CP, YVETTE ####[address] , [place] [address] Eosinophils/100 WBC Auto (Bld) 3 % Normal 1-4 [facility] Comment on above: Performed By: #### L IP, CDP, CP, YVETTE ####[address] , [place] [address] Erythrocyte distribution wid th Auto Ratio (RBC) 13.1 % Normal 11.8-14.4 [facility] Comment on above: Performed By: #### L IP, CDP, CP, YVETTE ####[address] , [facility] Hematocrit Auto Volume Fraction (Bld) 39.4 % Normal 36.3-47.1 [facility] Comment on above: Performed By: #### L IP, CDP, CP, YVETTE ####[address] , [facility] Hemoglobin mass conc (Bld) 13.0 g/dL Normal 11.9-15.1 [facility] Comment on above: Performed By: #### L IP, CDP, CP, YVETTE ####[address] , [facility] Immature granulocytes #/vol (Bld) 0 % Normal 0 [facility] Comment on above: Performed By: #### L IP, CDP, CP, YVETTE ####[address] , [facility] Lymphocytes Auto #/vol (Bld) 2.83 10*3/uL Normal 1.10- 3.70 [facility] Comment on above: Performed By: #### L IP, CDP, CP, YVETTE ####[address] [place] [address] Lymphocytes/100 WBC Auto (Bld) 44 % High 24-43 [facility] Comment on above: Performed By: #### L IP, CDP, CP, YVETTE ####[address] [place] [address] MCH Auto Entitic mass (RBC) 29.3 pg Normal 25.2-33. 5 [facility] Comment on above: Performed By: #### L IP, CDP, CP, YVETTE ####[address] [place] [address] MCHC Auto mass conc (RBC) 33.0 g/dL Normal 28.4-34.8 [facility] Comment on above: Performed By: #### L IP, CDP, CP, YVETTE ####[address] , [facility] MCV Auto Entitic volume (RBC) 88.7 fL Normal 82.6-1 02.9 [facility] Comment on above: Performed By: #### L IP, CDP, CP, YVETTE ####[address] , [facility] Monocytes Auto #/vol (Bld) 0.38 10*3/uL Normal 0.10-1. 20 [facility] Comment on above: Performed By: #### L IP, CDP, CP, YVETTE ####[address] , [facility] Monocytes/100 WBC Auto (Bld) 6 % Normal 3-12 [facility] Comment on above: Performed By: #### L IP, CDP, CP, YVETTE ####[address] [place] [address] Neutrophil (Seg) 47 % Normal 36-65 [facility] Comment on above: Performed By: #### L IP, CDP, CP, YVETTE ####[address] [place] [address] NRBC Automated 0.0 per 100 WBC Normal 0.0 [facility] Comment on above: Performed By: #### L IP, CDP, CP, YVETTE ####[address] , [facility] Platelet mean volume Auto En titic volume (Bld) 9.4 fL Normal 8.1-13.5 [facility] Comment on above: Performed By: #### L IP, CDP, CP, YVETTE ####[address] [place] [address] Platelets Auto #/vol (Bld) 211 10*3/uL Normal 138-453 [facility] Comment on above: Performed By: #### L IP, CDP, CP, YVETTE ####[address] [place] [address] RBC Auto #/vol (Bld) 4.44 10*6/uL Normal 3.95-5.11 [facility] Comment on above: Performed By: #### L IP, CDP, CP, YVETTE ####[address] [place] [address] WBC Auto #/vol (Bld) 6.5 10*3/uL Normal 3.5-11.3 [facility] Comment on above: Performed By: #### L IP, CDP, CP, YVETTE ####[address] [place] [address] Auto Diff Performed NOT REPORTED Normal [facility] Comment on above: Performed By: #### L IP, CDP, CP, YVETTE ####[address] [place] [address] Platelets Auto #/vol (Bld) NOT REPORTED Normal [facility] Comment on above: Performed By: #### L IP, CDP, CP, YVETTE ####[address] [place] [address] RBC morphology finding Nom (Bld) NOT REPORTED Normal [facility] Comment on above: Performed By: #### L IP, CDP, CP, YVETTE ####[address] [place] [address] WBC Morphology NOT REPORTED Normal [facility] Comment on above: Performed By: #### L IP, CDP, CP, YVETTE ####[address] [place] [id number] CT ABDOMEN PELVIS WO CONTRAS Ton 10-09-2018 [...] Diaz, DOSigned by:Tl Diaz, DO10/09/18Final result Normal [facility] Comp Metabolic Profon 2017 (cont.) Normal [facility] [place] [facility] Comment on above: Result Comment: Aver age GFR for 30-39 years old: 107 mL/min/1.73sq mChronic Kidney Disease: <60 mL/min/1.73sq mKidney failure: <15 mL/min/1.73sq meGFR calculated using average adult body mass. Additional eGFR calculator available at:http://www.Busbud.HireVue/multiple_crcl_2012.htm Performed By: #### L EDWIN, BRYCE, AMANDO, YVETTE ####[address] [place] [address]([id number]) Albumin mass conc 4.2 g/dL Normal 3.5-5.2 [facility] Comment on above: Performed By: #### L EDWIN, BRYCE, AMANDO, YVETTE ####[address] [place] [address] Albumin/Globulin mass ratio 1.4 {ratio} Normal 1.0-2.5 [facility] Comment on above: Performed By: #### L IP, CDP, CP, YVETTE ####[address] , [facility]83 Alkaline Phos 75 U/L Normal 35-104 [facility] Comment on above: Performed By: #### L IP, CDP, CP, YVETTE ####[address] , [facility]83 ALT enzyme act/vol 10 U/L Normal 5-33 [facility] Comment on above: Performed By: #### L IP, CDP, CP, YVETTE ####[address] [place] [address] Anion gap 3 molar conc 9 mmol/L Normal 9-17 [facility] Comment on above: Performed By: #### L IP, CDP, CP, YVETTE ####[address] [place] [address] AST enzyme act/vol 13 U/L Normal <32 [facility] Comment on above: Performed By: #### L IP, CDP, CP, YVETTE ####[address] [place] [address] Bilirubin Ql (U) 0.27 mg/dL Low 0.3-1.2 [facility] Comment on above: Performed By: #### L IP, CDP, CP, YVETTE ####[address] , [facility]83 BUN/CRE Ratio 17 Normal 9-20 [facility] Comment on above: Performed By: #### L IP, CDP, CP, YVETTE ####[address] [place] [address] Calcium mass conc 8.9 mg/dL Normal 8.6-10.4 [facility] Comment on above: Performed By: #### L IP, CDP, CP, YVETTE ####[address] [place] [address] Chloride molar conc 103 mmol/L Normal 98-107 [facility] Comment on above: Performed By: #### L IP, CDP, CP, YVETTE ####[address] [place] [address] CO2 molar conc 27 mmol/L Normal 20-31 [facility] Comment on above: Performed By: #### L IP, CDP, CP, YVETTE ####[address] [place] [address] Creatinine mass conc 0.60 mg/dL Normal 0.50-0.90 [facility] Comment on above: Performed By: #### L IP, CDP, CP, YVETTE ####[address] [place] [address] GFR, Amer >60 Normal >60 [facility] Comment on above: Performed By: #### L IP, CDP, CP, YVETTE ####[address] [place] [address] GFR,non Amer >60 Normal >60 [facility] Comment on above: Performed By: #### L IP, CDP, CP, YVETTE ####[address] [place] [address] Glucose mass conc 89 mg/dL Normal 70-99 [facility] Comment on above: Performed By: #### L IP, CDP, CP, YVETTE ####[address] [place] [address] Potassium molar conc 4.1 mmol/L Normal 3.7-5.3 [facility] Comment on above: Performed By: #### L IP, CDP, CP, YVETTE ####[address] [place] [address] Protein mass conc 7.2 g/dL Normal 6.4-8.3 [facility] Comment on above: Performed By: #### L IP, CDP, CP, YVETTE ####[address] [place] [address] Sodium molar conc 139 mmol/L Normal 135-144 [facility] Comment on above: Performed By: #### L IP, CDP, CP, YVETTE ####[address] [place] [address] Staging: Normal [facility] [place] [facility] Comment on above: Result Comment: Stag e 1: Some kidney damage normal GFRStage 2: Mild kidney damage GFR 60-89Stage 3: Moderate kidney damage GFR 30-59Stage 4: Severe kidney damage GFR 15-29Stage 5: Severe kidney damage GFR <15ESRD - chronic treatment by dialysis or transplant Performed By: #### L IP, CDP, CP, YVETTE ####[address] [place] [address] Urea nitrogen mass conc 10 mg/dL Normal 6-20 [facility] Comment on above: Performed By: #### L IP, CDP, CP, YVETTE ####[address] [place] [address] Cult,Urineon 10-09-2018 Cult,Urine Specimen Description .CLEAN CATCH URINE Special Requests NOT REPORTED Culture STREPTOCOCCI, BETA HEMOLYTIC GROUP B 10 to 50,000 CFU/ML Report Status FINAL 10/09/2018 Normal [facility] Comment on above: Performed By: #### C DP ####[facility] [id number] [place] [address] #### BMP, HCG ####[address] [place] [address] Lipaseon 10-09-2018 Lipase enzyme act/vol 63 U/L High 13-60 [facility] Comment on above: Performed By: #### L IP, CDP, CP, YVETTE ####[address] [place] [address] UA w/Reflex Cultureon 2017 Acetoacetic Acid,Ur Negative Normal NEG [facility] Comment on above: Performed By: #### U MICAO, UAX ####[address] [place] [address] Bilirubin, SemiQt,Ur Negative Normal NEG [facility] Comment on above: Performed By: #### U MICAO, UAX ####[address] [place] [address] Color YELLOW Normal YEL [facility] [place] [facility] Comment on above: Performed By: #### U MICAO, UAX ####[address] [place] [address] Glucose,Semi-qnt,Ur Negative Normal [facility] Comment on above: Performed By: #### U MICAO, UAX ####[address] [place] [address] Hemoglobin, Ur 3+ Abnormal NEG [facility] Comment on above: Performed By: #### U MICAO, UAX ####[address] [place] [address] Leuckocyte Esterase SMALL Abnormal NEG [facility] Comment on above: Performed By: #### U MICAO, UAX ####[address] [place] [address] Nitrite,Ur Negative Normal NEG [facility] [place] [facility] Comment on above: Performed By: #### U MICAO, UAX ####[address] [place] [address] PH,Ur 7.5 Normal 5.0-9.0 [facility] [place] [facility] Comment on above: Performed By: #### U MICAO, UAX ####[address] [place] [address] Protein, Semi-qnt,Ur Negative Normal NEG [facility] Comment on above: Performed By: #### U MICAO, UAX ####[address] [place] [address] Spec. [place],Ur 1.010 Normal 1.010-1.020 [facility] Comment on above: Performed By: #### U MICAO, UAX ####[address] [place] [address] Turbidity CLOUDY Abnormal CLEAR [facility] [place] [facility] Comment on above: Performed By: #### U MICAO, UAX ####[address] [place] [address] Urobilinogen,Ur Normal Normal NORM [facility] Comment on above: Performed By: #### U MICAO, UAX ####[address] [place] [address] Comment NOT REPORTED Normal [facility] Comment on above: Performed By: #### U MICAO, UAX ####[address] [place] [address] Urinalysis,Microon 8 ----- Normal [facility] [place] [facility] Comment on above: Performed By: #### U MICAO, UAX ####[address] [place] [address] Amorphous Sediment 2+ Abnormal NONE [facility] Comment on above: Performed By: #### U MICAO, UAX ####[address] [place] [address] Epithelial cells 2 TO 5 Normal 0-25 [facility] Comment on above: Performed By: #### U MICAO, UAX ####[address] [place] [address] RBC Test strip #/vol (U) 5 TO 10 Normal 0-2 [facility] Comment on above: Performed By: #### U MICAO, UAX ####[address] [place] [address] Urine WBC's 0 TO 2 Normal 0-5 [facility] Comment on above: Performed By: #### U MICAO, UAX ####[address] [place] [address] Bacteria NOT REPORTED Normal NONE [facility] Comment on above: Performed By: #### U MICAO, UAX ####[address] [place] [address] Casts NOT REPORTED Normal [facility] Comment on above: Performed By: #### U MICAO, UAX ####[address] [place] [address] Crystals NOT REPORTED Normal NONE [facility] Comment on above: Performed By: #### U MICAO, UAX ####[address] [place] [address] Epithelial, Renal NOT REPORTED Normal 0 [facility] Comment on above: Performed By: #### U MICAO, UAX ####[address] [place] [address] Mucus Strands NOT REPORTED Normal NONE [facility] Comment on above: Performed By: #### U MICAO, UAX ####[address] [place] [address] Other Observations NOT REPORTED Normal NREQ [facility] Comment on above: Performed By: #### U MICAO, UAX ####[address] [place] [address] Trichomonas NOT REPORTED Normal NONE [facility] Comment on above: Performed By: #### U MICAO, UAX ####[address] [place] [address] Yeast NOT REPORTED Normal NONE [facility] Comment on above: Performed By: #### U RAHULO, UAX ####[address] [place] [address] Basic Metabolic Profon 06-13 (cont.) Normal [facility] Comment on above: Result Comment: Aver age GFR for 30-39 years old: 107 mL/min/1.73sq mChronic Kidney Disease: <60 mL/min/1.73sq mKidney failure: <15 mL/min/1.73sq meGFR calculated using average adult body mass. Additional eGFR calculator available at:http://www.Busbud.HireVue/multiple_crcl_2012.htm Performed By: #### B RHIANNA, CDP ####[address] [place] [address] Anion gap 3 molar conc 12 mmol/L Normal 9-17 [facility] Comment on above: Performed By: #### B RHIANNA, CDP ####[address] [place] [address] BUN/CRE Ratio 17 Normal 9-20 [facility] Comment on above: Performed By: #### B RHIANNA, CDP ####[address] [place] [address] Calcium mass conc 9.1 mg/dL Normal 8.6-10.4 [facility] Comment on above: Performed By: #### B RHIANNA, CDP ####[address] [place] [address] Chloride molar conc 103 mmol/L Normal 98-107 [facility] Comment on above: Performed By: #### B RHIANNA, CDP ####[address] [place] [address] CO2 molar conc 26 mmol/L Normal 20-31 [facility] Comment on above: Performed By: #### B RHIANNA, CDP ####[address] [place] [address] Creatinine mass conc 0.72 mg/dL Normal 0.50-0.90 [facility] Comment on above: Performed By: #### B MP, CDP ####[address] [place] [address] GFR, Amer >60 Normal >60 [facility] Comment on above: Performed By: #### B MP, CDP ####[address] [place] [address] GFR,non Amer >60 Normal >60 [facility] Comment on above: Performed By: #### B MP, CDP ####[address] [place] [address] Glucose mass conc 98 mg/dL Normal 70-99 [facility] Comment on above: Performed By: #### B MP, CDP ####[address] [place] [address] Potassium molar conc 3.7 mmol/L Normal 3.7-5.3 [facility] Comment on above: Performed By: #### B MP, CDP ####[address] [place] [address] Sodium molar conc 141 mmol/L Normal 135-144 [facility] Comment on above: Performed By: #### B MP, CDP ####[address] [place] [address] Staging: Normal [facility] Comment on above: Result Comment: Stag e 1: Some kidney damage normal GFRStage 2: Mild kidney damage GFR 60-89Stage 3: Moderate kidney damage GFR 30-59Stage 4: Severe kidney damage GFR 15-29Stage 5: Severe kidney damage GFR <15ESRD - chronic treatment by dialysis or transplant Performed By: #### B MP, CDP ####[address] [place] [address] Urea nitrogen mass conc 12 mg/dL Normal 6-20 [facility] Comment on above: Performed By: #### B MP, CDP ####[address] [place] [address] CBC with Diffon 06-13-2018 Abs. Basophil <0.03 Normal 0.00-0.20 [facility] Comment on above: Performed By: #### B MP, CDP ####[address] , [facility]83 Abs.Imm.Granulocyte <0.03 Normal 0.00-0.30 [facility] Comment on above: Performed By: #### B MP, CDP ####[address] , [facility]83 Abs.Neutrophil (Seg) 4.75 k/uL Normal 1.50-8.10 [facility] Comment on above: Performed By: #### B MP, CDP ####[address] , [facility]83 Basophils/100 WBC Auto (Bld) 0 % Normal 0-2 [facility] Comment on above: Performed By: #### B MP, CDP ####[address] [place] [address] Eosinophils Auto #/vol (Bld) 0.23 10*3/uL Normal 0.00- 0.44 [facility] Comment on above: Performed By: #### B MP, CDP ####[address] , [facility]83 Eosinophils/100 WBC Auto (Bld) 2 % Normal 1-4 [facility] Comment on above: Performed By: #### B MP, CDP ####[address] , [facility]83 Erythrocyte distribution wid th Auto Ratio (RBC) 12.9 % Normal 11.8-14.4 [facility] Comment on above: Performed By: #### B MP, CDP ####[address] [place] [address] Hematocrit Auto Volume Fraction (Bld) 38.9 % Normal 36.3-47.1 [facility] Comment on above: Performed By: #### B MP, CDP ####[address] [place] [address] Hemoglobin mass conc (Bld) 12.6 g/dL Normal 11.9-15.1 [facility] Comment on above: Performed By: #### B MP, CDP ####[address] [place] [address] Immature granulocytes #/vol (Bld) 0 % Normal 0 [facility] Comment on above: Performed By: #### B MP, CDP ####[address] [place] [address] Lymphocytes Auto #/vol (Bld) 3.99 10*3/uL High 1.10- 3.70 [facility] Comment on above: Performed By: #### B MP, CDP ####[address] [place] [address] Lymphocytes/100 WBC Auto (Bld) 42 % Normal 24-43 [facility] Comment on above: Performed By: #### B MP, CDP ####[address] [place] [address] MCH Auto Entitic mass (RBC) 29.4 pg Normal 25.2-33. 5 [facility] Comment on above: Performed By: #### B MP, CDP ####[address] [place] [address] MCHC Auto mass conc (RBC) 32.4 g/dL Normal 28.4-34.8 [facility] Comment on above: Performed By: #### B MP, CDP ####[address] [place] [address] MCV Auto Entitic volume (RBC) 90.7 fL Normal 82.6-1 02.9 [facility] Comment on above: Performed By: #### B MP, CDP ####[address] [place] [address] Monocytes Auto #/vol (Bld) 0.49 10*3/uL Normal 0.10-1. 20 [facility] Comment on above: Performed By: #### B MP, CDP ####[address] [place] [address] Monocytes/100 WBC Auto (Bld) 5 % Normal 3-12 [facility] Comment on above: Performed By: #### B RHIANNA, CDP ####[address] [place] [address] Neutrophil (Seg) 51 % Normal 36-65 [facility] Comment on above: Performed By: #### B RHIANNA, CDP ####[address] [place] [address] NRBC Automated 0.0 per 100 WBC Normal 0.0 [facility] Comment on above: Performed By: #### B RHIANNA, CDP ####[address] [place] [address] Platelet mean volume Auto En titic volume (Bld) 9.6 fL Normal 8.1-13.5 [facility] Comment on above: Performed By: #### B MP, CDP ####[address] [place] [address] Platelets Auto #/vol (Bld) 224 10*3/uL Normal 138-453 [facility] Comment on above: Performed By: #### B MP, CDP ####[address] [place] [address] RBC Auto #/vol (Bld) 4.29 10*6/uL Normal 3.95-5.11 [facility] Comment on above: Performed By: #### B MP, CDP ####[address] [place] [address] WBC Auto #/vol (Bld) 9.5 10*3/uL Normal 3.5-11.3 [facility] Comment on above: Performed By: #### B MP, CDP ####[address] [place] [address] Auto Diff Performed NOT REPORTED Normal [facility] Comment on above: Performed By: #### B MP, CDP ####[address] [place] [address] Platelets Auto #/vol (Bld) NOT REPORTED Normal [facility] Comment on above: Performed By: #### B MP, CDP ####[address] [place] [address] RBC morphology finding Nom (Bld) NOT REPORTED Normal [facility] Comment on above: Performed By: #### B MP, CDP ####[address] [place] [address] WBC Morphology NOT REPORTED Normal [facility] Comment on above: Performed By: #### B MP, CDP ####[address] [place] [address] CT ABDOMEN PELVIS WO CONTRAS Ton 06-13-2018 [...] abdomen and pelvis.Interpreted by:PAULINE Priceigned by:Aric Landeros MD//18Final result Normal [facility] Urinalysis w/ Microon 2017 ----- Normal [facility] [place] [facility] Comment on above: Performed By: #### U AMIC ####[address] [place] [address] Acetoacetic Acid,Ur Negative Normal NEG [facility] Comment on above: Performed By: #### U AMIC ####[address] [place] [address] Bacteria 1+ Abnormal NONE [facility] [place] [facility] Comment on above: Performed By: #### U AMIC ####[address] [place] [address] Bilirubin, SemiQt,Ur Negative Normal NEG [facility] Comment on above: Performed By: #### U AMIC ####[address] [place] [address] Color YELLOW Normal YEL [facility] [place] [facility] Comment on above: Performed By: #### U AMIC ####[address] [place] [address] Epithelial cells 0 TO 2 Normal 0-25 [facility] Comment on above: Performed By: #### U AMIC ####[address] [place] [address] Glucose,Semi-qnt,Ur Negative Normal NEG [facility] Comment on above: Performed By: #### U AMIC ####[address] [place] [address] Hemoglobin, Ur 3+ Abnormal NEG [facility] Comment on above: Performed By: #### U AMIC ####[address] [place] [address] Leuckocyte Esterase TRACE Abnormal NEG [facility] Comment on above: Performed By: #### U AMIC ####[address] [place] [address] Nitrite,Ur Negative Normal NEG [facility] Comment on above: Performed By: #### U AMIC ####[address] [place] [address] PH,Ur 6.0 Normal 5.0-9.0 [facility] Comment on above: Performed By: #### U AMIC ####[address] [place] [address] Protein mass conc Negative Normal NEG [facility] Comment on above: Performed By: #### U AMIC ####[address] [place] [address] RBC Test strip #/vol (U) 50 TO 100 Normal 0-2 [facility] Comment on above: Performed By: #### U AMIC ####[address] [place] [address] Spec. [place],Ur 1.025 High 1.010-1.020 [facility] Comment on above: Performed By: #### U AMIC ####[address] [place] [address] Turbidity CLEAR Normal CLEAR [facility] Comment on above: Performed By: #### U AMIC ####[address] [place] [address] Urine WBC's 0 TO 2 Normal 0-5 [facility] Comment on above: Performed By: #### U AMIC ####[address] [place] [address] Urobilinogen,Ur Normal Normal NORM [facility] Comment on above: Performed By: #### U AMIC ####[address] [place] [address] Amorphous Sediment NOT REPORTED Normal NONE [facility] Comment on above: Performed By: #### U AMIC ####[address] [place] [address] Casts NOT REPORTED Normal [facility] Comment on above: Performed By: #### U AMIC ####[address] [place] [address] Comment NOT REPORTED Normal [facility] Comment on above: Performed By: #### U AMIC ####[address] [place] [address] Crystals NOT REPORTED Normal NONE [facility] Comment on above: Performed By: #### U AMIC ####[address] [place] [address] Epithelial, Renal NOT REPORTED Normal 0 [facility] Comment on above: Performed By: #### U AMIC ####[address] [place] [address] Mucus Strands NOT REPORTED Normal NONE [facility] Comment on above: Performed By: #### U AMIC ####[address] [place] [address] Other Observations NOT REPORTED [facility] on above: Performed By: #### U AMIC ####[address] [place] [address] Trichomonas NOT REPORTED Normal NONE [facility] Comment on above: Performed By: #### U AMIC ####[address] , [place] [id number] Yeast NOT REPORTED Normal NONE [facility] Comment on above: Performed By: #### U AMIC ####[address] [place] [address] APTTon 02-25-2018 aPTT Coag time (Bld) 32.2 s Normal 23.2-34.4 [facility] Comment on above: Result Comment: Perf ormed at [address] [place], [place] [id number] [phone] Performed By: #### P TT, PT ####[address] , [place] [id number] Basic Metabolic Profon 02-25 (cont.) Normal [facility] Comment on above: Result Comment: Aver age GFR for 30-39 years old: 107 mL/min/1.73sq mChronic Kidney Disease: <60 mL/min/1.73sq mKidney failure: <15 mL/min/1.73sq meGFR calculated using average adult body mass. Additional eGFR calculator available at:http://www.Busbud.HireVue/multiple_crcl_2012.htm Performed By: #### C DP ####[address] [address] #### BMP, HCG ####[address] , [place] [id number] Anion gap 3 molar conc 12 mmol/L Normal 9-17 [facility] Comment on above: Performed By: #### C DP ####[address] [address] #### BMP, HCG ####[address] , [place] [id number] BUN/CRE Ratio 20 Normal 9-20 [facility] Comment on above: Performed By: #### C DP ####[address] [address] #### BMP, HCG ####[address] [place] [address] Calcium mass conc 9.4 mg/dL Normal 8.6-10.4 [facility] Comment on above: Performed By: #### C DP ####[address] [address] #### BMP, HCG ####[address] [place] [address] Chloride molar conc 101 mmol/L Normal 98-107 [facility] Comment on above: Performed By: #### C DP ####[address] [address] #### BMP, HCG ####[address] [place] [address] CO2 molar conc 28 mmol/L Normal 20-31 [facility] Comment on above: Performed By: #### C DP ####[address] [address] #### BMP, HCG ####[address] [place] [address] Creatinine mass conc 0.59 mg/dL Normal 0.50-0.90 [facility] Comment on above: Performed By: #### C DP ####[address] [address] #### BMP, HCG ####[address] [place] [address] GFR, Amer >60 Normal >60 [facility] Comment on above: Performed By: #### C DP ####[address] [place] [address] #### BMP, HCG ####[address] [place] [address] GFR,non Amer >60 Normal >60 [facility] Comment on above: Performed By: #### C DP ####[address] [address] #### BMP, HCG ####[address] [place] [address] Glucose mass conc 119 mg/dL High 70-99 [facility] Comment on above: Performed By: #### C DP ####[address] [address] #### BMP, HCG ####[address] [place] [address] Potassium molar conc 3.7 mmol/L Normal 3.7-5.3 [facility] Comment on above: Performed By: #### C DP ####[address] [address] #### BMP, HCG ####[address] [place] [address] Sodium molar conc 141 mmol/L Normal 135-144 [facility] Comment on above: Performed By: #### C DP ####[address] [address] #### BMP, HCG ####[address] [place] [address] Staging: Normal [facility] Comment on above: Result Comment: Stag e 1: Some kidney damage normal GFRStage 2: Mild kidney damage GFR 60-89Stage 3: Moderate kidney damage GFR 30-59Stage 4: Severe kidney damage GFR 15-29Stage 5: Severe kidney damage GFR <15ESRD - chronic treatment by dialysis or transplantPerformed at [address] [place] [address] Performed By: #### C DP ####[address] [address] #### BMP, HCG ####[address] [place] [address] Urea nitrogen mass conc 12 mg/dL Normal 6-20 [facility] Comment on above: Performed By: #### C DP ####[address] [address] #### BMP, HCG ####[address] [place] [address] CBC with Diffon 02-25-2018 Abs. Basophil 0.03 k/uL Normal 0.00-0.20 [facility] Comment on above: Performed By: #### C DP ####[address] [address] #### BMP, HCG ####[address] [place] [id number] Abs.Imm.Granulocyte 0.03 k/uL Normal 0.00-0.30 [facility] Comment on above: Result Comment: Perf ormed at [address] [address] Performed By: #### C DP ####[address] [address] #### BMP, HCG ####[address] [place] [id number] Abs.Neutrophil (Seg) 5.34 k/uL Normal 1.50-8.10 [facility] Comment on above: Performed By: #### C DP ####[address] [address] #### BMP, HCG ####[address] [place] [address] Basophils/100 WBC Auto (Bld) 0 % Normal 0-2 [facility] Comment on above: Performed By: #### C DP ####[address] [address] #### BMP, HCG ####[address] [place] [address] Eosinophils Auto #/vol (Bld) 0.21 10*3/uL Normal 0.00- 0.44 [facility] Comment on above: Performed By: #### C DP ####[address] [address] #### BMP, HCG ####[address] [place] [address] Eosinophils/100 WBC Auto (Bld) 2 % Normal 1-4 [facility] Comment on above: Performed By: #### C DP ####[address] [address] #### BMP, HCG ####[address] [place] [address] Erythrocyte distribution wid th Auto Ratio (RBC) 12.3 % Normal 11.8-14.4 [facility] Comment on above: Performed By: #### C DP ####[address] [address] #### BMP, HCG ####[address] [place] [address] Hematocrit Auto Volume Fraction (Bld) 41.4 % Normal 36.3-47.1 [facility] Comment on above: Performed By: #### C DP ####[address] [address] #### BMP, HCG ####[address] [place] [id number] Hemoglobin mass conc (Bld) 14.0 g/dL Normal 11.9-15.1 [facility] Comment on above: Performed By: #### C DP ####[address] [address] #### BMP, HCG ####[address] [place] [id number] Immature granulocytes #/vol (Bld) 0 % Normal 0 [facility] Comment on above: Performed By: #### C DP ####[address] [address] #### BMP, HCG ####[address] [place] [id number] Lymphocytes Auto #/vol (Bld) 3.84 10*3/uL High 1.10- 3.70 [facility] Comment on above: Performed By: #### C DP ####[address] [address] #### BMP, HCG ####[address] [place] [address] Lymphocytes/100 WBC Auto (Bld) 38 % Normal 24-43 [facility] Comment on above: Performed By: #### C DP ####[address] [address] #### BMP, HCG ####[address] [place] [address] MCH Auto Entitic mass (RBC) 29.5 pg Normal 25.2-33. 5 [facility] Comment on above: Performed By: #### C DP ####[address] [address] #### BMP, HCG ####[address] [place] [address] MCHC Auto mass conc (RBC) 33.8 g/dL Normal 28.4-34.8 [facility] Comment on above: Performed By: #### C DP ####[address] [address] #### BMP, HCG ####[address] [place] [address] MCV Auto Entitic volume (RBC) 87.3 fL Normal 82.6-1 02.9 [facility] Comment on above: Performed By: #### C DP ####[address] [address] #### BMP, HCG ####[address] [place] [address] Monocytes Auto #/vol (Bld) 0.54 10*3/uL Normal 0.10-1. 20 [facility] Comment on above: Performed By: #### C DP ####[address] [address] #### BMP, HCG ####[address] [place] [address] Monocytes/100 WBC Auto (Bld) 5 % Normal 3-12 [facility] Comment on above: Performed By: #### C DP ####[address] [address] #### BMP, HCG ####[address] [place] [address] Neutrophil (Seg) 55 % Normal 36-65 [facility] Comment on above: Performed By: #### C DP ####[address] [address] #### BMP, HCG ####[address] [place] [address] NRBC Automated 0.0 per 100 WBC Normal 0.0 [facility] Comment on above: Performed By: #### C DP ####[address] [address] #### BMP, HCG ####[address] [place] [id number] Platelet mean volume Auto En titic volume (Bld) 9.8 fL Normal 8.1-13.5 [facility] Comment on above: Performed By: #### C DP ####[address] [address] #### BMP, HCG ####[address] [place] [address] Platelets Auto #/vol (Bld) 270 10*3/uL Normal 138-453 [facility] Comment on above: Performed By: #### C DP ####[address] [address] #### BMP, HCG ####[address] [place] [id number] RBC Auto #/vol (Bld) 4.74 10*6/uL Normal 3.95-5.11 [facility] Comment on above: Performed By: #### C DP ####[address] [address] #### BMP, HCG ####[address] [place] [address] WBC Auto #/vol (Bld) 10.0 10*3/uL Normal 3.5-11.3 [facility] Comment on above: Performed By: #### C DP ####[address] [address] #### BMP, HCG ####[address] [place] [id number] Auto Diff Performed NOT REPORTED Normal [facility] Comment on above: Performed By: #### C DP ####[address] [address] #### BMP, HCG ####[address] [place] [address] Platelets Auto #/vol (Bld) NOT REPORTED Normal [facility] Comment on above: Performed By: #### C DP ####[address] [address] #### BMP, HCG ####[address] [place] [address] RBC morphology finding Nom (Bld) NOT REPORTED Normal [facility] Comment on above: Performed By: #### C DP ####[address] [address] #### BMP, HCG ####[address] [place] [address] WBC Morphology NOT REPORTED Normal [facility] Comment on above: Performed By: #### C DP ####[address] [address] #### BMP, HCG ####[address] [place] [id number] CT ABDOMEN PELVIS WO CONTRAS Ton 02-25-2018 [...] by:PAULINE Menjivarigned by:Martina García MD02/25/18Final result Normal [facility] HCG Screen, Bloodon 02-26-20 18 HCG Qn Negative Normal NEG [facility] Comment on above: Result Comment: Spec imens with hCG levels near the threshold of the test (25 mIU/mL) may give a negative or indeterminate result. In such cases, another test should be performed with a new specimen in 48-72 hours. If early is suspected clinically in this setting, correlation with quantitative serum b-hCG level is suggested.[facility] has confirmed the use of plasma for this test. This has not been cleared or approved by the U.S. Food and Drug Administration. The FDA has determined that such clearance is not necessary.Performed at [address] [place] [address] ([phone] Performed By: #### C DP ####[facility] [place] [address] #### BMP, HCG ####[address] [place] [id number] PTon 02-25-2018 INR Coag RelTime (PPP) 1.0 {INR} Normal 0.9-1.2 [facility] Comment on above: Result Comment: Perf ormed at [address] [place], [place] [id number] (731) Performed By: #### P TT, PT ####[address] [place] [address] Prothrombin time (PT) Coag time (PPP) 10.8 s Normal 9.7-12.2 [facility] Comment on above: Performed By: #### P TT, PT ####[address] [place] [address] Urinalysis w/ Microon 2017 ----- Normal [facility] Comment on above: Performed By: #### U AMIC ####[address] [place] [address] Acetoacetic Acid,Ur Negative Normal NEG [facility] Comment on above: Performed By: #### U AMIC ####[address] [place] [address] Amorphous Sediment 2+ Abnormal NONE [facility] Comment on above: Result Comment: Perf ormed at [address] [place] [address] Performed By: #### U AMIC ####[address] [place] [address] Bacteria 1+ Abnormal NONE [facility] Comment on above: Performed By: #### U AMIC ####[address] [place] [address] Bilirubin, SemiQt,Ur Negative Normal NEG [facility] Comment on above: Performed By: #### U AMIC ####[address] [place] [address] Color YELLOW Normal YEL [facility] Comment on above: Performed By: #### U AMIC ####[address] [place] [address] Epithelial cells 0 TO 2 Normal 0-25 [facility] Comment on above: Performed By: #### U AMIC ####[address] [place] [address] Glucose,Semi-qnt,Ur Negative Normal NEG [facility] Comment on above: Performed By: #### U AMIC ####[address] [place] [address] Hemoglobin, Ur 2+ Abnormal NEG [facility] Comment on above: Performed By: #### U AMIC ####[address] [place] [address] Leuckocyte Esterase TRACE Abnormal NEG [facility] Comment on above: Performed By: #### U AMIC ####[address] [place] [address] Mucus Strands TRACE Abnormal NONE [facility] Comment on above: Performed By: #### U AMIC ####[address] [place] [address] Nitrite,Ur Negative Normal NEG [facility] Comment on above: Performed By: #### U AMIC ####[address] [place] [address] PH,Ur 7.5 Normal 5.0-9.0 [facility] Comment on above: Performed By: #### U AMIC ####[address] [place] [address] Protein mass conc Negative Normal NEG [facility] Comment on above: Performed By: #### U AMIC ####[address] [place] [address] RBC Test strip #/vol (U) 5 TO 10 Normal 0-2 [facility] Comment on above: Performed By: #### U AMIC ####[address] [place] [address] Spec. [place],Ur 1.010 Normal 1.010-1.020 [facility] Comment on above: Performed By: #### U AMIC ####[address] [place] [address] Turbidity CLEAR Normal CLEAR [facility] Comment on above: Performed By: #### U AMIC ####[address] [place] [address] Urine WBC's 0 TO 2 Normal 0-5 [facility] Comment on above: Performed By: #### U AMIC ####[address] [place] [address] Urobilinogen,Ur Normal Normal NORM [facility] Comment on above: Performed By: #### U AMIC ####[address] [place] [address] Casts NOT REPORTED Normal [facility] Comment on above: Performed By: #### U AMIC ####[address] [place] [address] Comment NOT REPORTED Normal [facility] Comment on above: Performed By: #### U AMIC ####[address] [place] [address] Crystals NOT REPORTED Normal NONE [facility] Comment on above: Performed By: #### U AMIC ####[address] [place] [address] Epithelial, Renal NOT REPORTED Normal 0 [facility] Comment on above: Performed By: #### U AMIC ####[address] [place] [address] Other Observations NOT REPORTED Normal NREQ [facility] Comment on above: Performed By: #### U AMIC ####[facility] [place] , [place] [id number] Trichomonas NOT REPORTED Normal NONE [facility] Comment on above: Performed By: #### U AMIC ####[facility] [place] [address] Yeast NOT REPORTED Normal NONE [facility] Comment on above: Performed By: #### U AMIC ####[facility] [place] [id number] Otolaryngology Office/Clinic Noteon 2017 Otolaryngology Office/Clinic Note [...] MD, Zhane Mi 12/30/17 16:02 EDT Normal [facility] Otolaryngology Office/Clinic Noteon 11-18-2017 Otolaryngology Office/Clinic Note Chief Complaint post-opHistory of Viri Boles is now 1 month status post removal [...] Zhane Tamez MD 11/18/17 16:31 EST Normal [facility] Otolaryngology Office/Clinic Note Patient seen for dispense of bilateral s wim plugs. Both plugs display good fit in the ears, and patient confirmed comfort of fit. Proper insertion/removal was practiced successfully. Plan: Return if issues arise regarding swim plugs. N/C, swim plugs paid at last appointment.Electronically signed by Kyara RoqueRimah 11/18/17 16:04 EST Normal [facility] Otolaryngology Office/Clinic Noteon 10-28-2017 Otolaryngology Office/Clinic Note Patient seen for bilateral earmold impre ssions for swim plugs. Earmold impressions made without incident and otoscopy prior to and following impressions was unremarkable. Patient chose purple, pink, and green swirl color for plugs. Plan: Return in 3 weeks for dispense, prior to follow-up appointment with Dr. Zhane Tamez. 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 and TMperf.POSTOPERATIVE DIAGNOSIS: Chronic myringitis, left ear, secondary toforeign body reaction to retained tube with excessive granulation tissueand TM perf.OPERATIVE PROCEDURE: Debridement of granulation tissue with removal offoreign body at TM and myringoplasty.ANESTHESIA: General.ANESTHESIOLOGIST: KHARI DubonRGEON: Zhane Tamez, WALDEMAROMPLICATIONS: None.BLOOD LOSS: 10 mL.FINDINGS: Excessive amount of [...] havingtolerated the procedure well.ZHANE TAMEZD: 10/14/2017 14:55:29 EN/V_[id number]_IJob#: [id number] Doc#: [id number]: Normal [facility] OPERATIVE REPORT [address] [address] OPERATIVE REPORTPATIENT NAME: ELVI MOORE : 1980[facility] REC NO: [id number] ROOM:ACCOUNT NO: [id number] ADMIT DATE: 10/14/2017PROVIDER: Zhane TamezDATE OF PROCEDURE: 10/14/2017PREOPERATIVE DIAGNOSIS: Granulation tissue, TM perf with retained silveroxide myringotomy tube.POSTOPERATIVE DIAGNOSIS: Granulation tissue, TM perf with retained silveroxide myringotomy tube.OPERATIVE PROCEDURES: Removal of retained tube, debridement of granulationtissue, and placement of paper patch myringoplasty.ANESTHESIA: General.ANESTHESIOLOGIST: KHARI DubonRGEON: Zhane Tamez, WALDEMAROMPLICATIONS: None.FINDINGS: Retained tube in the inferior TM [...] the operative suite, having tolerated theprocedure well.ZHANE TAMEZD: 10/14/2017 10:15:44 DORA/Florian_FOSTER_IJob#: [id number] Doc#: [id number]: Normal Alessia Damian [facility] Otolaryngology Office/Clinic Noteon 09-16-2017 Otolaryngology Office/Clinic Note [...] available. No qualifying data available.Electronically signed by __Zhane Tamez MD 09/16/17 16:06 EST Normal [facility] Otolaryngology Consultationo n 04-20-2017 Otolaryngology Consultation [...] Zhane Tamez MD 04/20/17 16:51 EDT Normal [facility] Vital Signs Date Time Vital Sign Value Performing Clinician Faci litpaco 09-13-2023 12:04-0500 Blood Pressure Location Diana HAWKINS [facility] 09-13-2023 12:04-0500 Diastolic blood pressure 74 mm[Hg] Diana HAWKINS [facility] 09-13-2023 12:04-0500 Heart rate 64 /min Diana HAWKINS [facility] 09-13-2023 12:04-0500 Respiratory rate 16 /min Diana HAWKINS [facility] 09-13-2023 12:04-0500 Systolic blood pressure 128 mm[Hg] Diana HAWKINS [facility] 05-28-2023 11:12-0400 Body temperature 98 [degF] MD Arleth Acharya Work Phone: [facility] 05-28-2023 11:12-0400 Body weight 70.76 kg MD Arleth Acharya Work Phone: [facility] 05-28-2023 11:12-0400 Diastolic blood pressure 94 mm[Hg] MD Arleth Acharya Work Phone: [facility] 05-28-2023 11:12-0400 Heart rate 88 /min MD Arleth Acharya Work Phone: [facility] 05-28-2023 11:12-0400 Respiratory rate 16 /min MD Arleth Acharya Work Phone: [facility] 05-28-2023 11:12-0400 SaO2% (BldA) [Mass fraction] 98 % MD Arleth Acharya Work Phone: [facility] 05-28-2023 11:12-0400 Systolic blood pressure 131 mm[Hg] MD Arleth Acharya Work Phone: [facility] 05-28-2023 11:00-0400 Body height 167.64 cm MD Arleth Acharya Work Phone: [facility] 06-29-2022 09:25-0400 Blood Pressure Location Diana HAWKINS [facility] 06-29-2022 09:25-0400 Diastolic blood pressure 84 mm[Hg] Diana HAWKINS [facility] 06-29-2022 09:25-0400 Heart rate 84 /min Dianaatul HAWKINS [facility] 06-29-2022 09:25-0400 Respiratory rate 16 /min Diana HAWKINS [facility] 06-29-2022 09:25-0400 Systolic blood pressure 115 mm[Hg] Dianaatul HAWKINS [facility] Encounters Encounter Date Encounter Type Care Provider Facility Start: 10-19-2023 ambulatory Diana Mcclure ty:SHARAD Becerra Start: 09-20-2023 ambulatory Diana HAWKINS Facility :[facility] Start: 09-16-2023 ambulatory Diana Mcclure ty:CD:[id number] Start: 09-13-2023 End: 09-14-2023 ambulatory [facility] Start: 09-13-2023 End: 09-13-2023 Patient encounter procedure Diana Wolfgang HAWKINS [facility] Start: 08-19-2023 ambulatory [facility] Start: 07-20-2023 End: 07-21-2023 ambulatory [facility] Start: 07-20-2023 End: 07-20-2023 ambulatory [facility] Start: 06-28-2023 ambulatory Osiris Calderón Facility:[facility] Start: 06-01-2023 End: 06-01-2023 ambulatory [facility] Start: 05-28-2023 End: 05-28-2023 ambulatory MD Arleth Acharya Work Phone: [facility] Work Phone: Start: 05-28-2023 End: 05-28-2023 Registered Recurring MD Arleth Acharya Work Phone: [facility] Work Phone: Start: 05-04-2023 ambulatory [facility] Start: 04-28-2023 End: 04-28-2023 ambulatory [facility] Start: 04-15-2023 ambulatory [facility] Start: 03-17-2023 ambulatory RUKHSANA MILLER [facility] Start: 02-18-2023 ambulatory [facility] Start: 02-11-2023 End: 02-12-2023 ambulatory [facility] Start: 02-08-2023 ambulatory JORDEN [facility] Start: 01-25-2023 End: 01-25-2023 ambulatory GENNA HEATON Facility:[facility] Start: 01-21-2023 End: 01-22-[address] ARLETH ACHARYA . Facility:[facility] Start: 01-11-2023 ambulatory Diana HAWKINS Facili ty:[facility] Start: 01-08-2023 ambulatory RUKHSANA MILLER [facility] Start: 01-04-2023 End: 01-05-2023 ambulatory Diana HAWKINS Facility:[facility] Start: 01-04-2023 End: 01-04-2023 Patient encounter procedure Diana HAWKINS [facility] Start: 12-24-2022 ambulatory [facility] Start: 12-10-2022 End: 12-11-2022 ambulatory [facility] Start: 12-10-2022 End: 12-10-2022 ambulatory [facility] Start: 11-24-2022 ambulatory [facility] Start: 11-20-2022 End: 11-21-2022 ambulatory JORDEN [facility] Start: 11-03-[address] [facility] Start: 10-21-2022 End: 10-21-2022 Emergency department patient visit ALEYDA MIN [facility] Start: 10-20-2022 End: 10-20-2022 ambulatory JORDEN FlynnL[facility] Start: 10-13-2022 End: 10-13-2022 Emergency department patient visit DUSTY VU [facility] Start: 10-10-[address] ARLETH ACHARYA . Facili ty:[facility] Start: 10-06-2022 End: 10-06-[address] ARLETH ACHARYA . Facility:[facility] Start: 09-30-2022 End: 10-01-[address] ARLETH ACHARYA . Facility:[facility] Start: 09-21-2022 End: 09-21-[address] ARLETH ACHARYA . Facility:[facility] Start: 08-27-2022 Encounter for preprocedural laboratory examination DR DIANA HAWKINS . [facility] Start: 08-27-2022 End: 08-27-[address] DIANA HAWKINS . Facility:[facility] Start: 08-24-2022 End: 08-25-[address] DIANA HAWKINS . Facility:[facility] Start: 08-24-2022 End: 08-25-2022 Encounter for preprocedural laboratory examination DR DIANA HAWKINS . Facility:[facility] Start: 08-21-2022 End: 08-21-[address] DIANA HAWKINS . Facility:[facility] Start: 08-19-2022 End: 08-20-[address] DIANA HAWKINS . Facility:[facility] Start: 07-23-2022 End: 07-23-[address] IDANA HAWKINS . Facility:[facility] Start: 07-20-2022 End: 07-21-[address] DIANA HAWKINS . Facility:[facility] Start: 07-10-2022 End: 07-11-[address] DIANA HAWKINS . Facility:[facility] Start: 06-29-2022 End: 06-29-2022 Patient encounter procedure Diana HAWKINS [facility] Start: 06-11-[address] Facility :[facility] Start: 06-09-2022 End: 06-11-2022 ambulatory Kevin Nassaring Facility:[facility] Start: 06-03-2022 End: 06-03-2022 Emergency department patient visit ARLETH ACHARYA Facility:[facility] Start: 06-01-2022 End: 06-01-2022 Evaluation and management of inpatient Kevin Lane Facility:[facility] Start: 05-26-2022 End: 05-27-[address] Facility:[facility] Start: 05-26-2022 End: 05-27-2022 Encounter for preprocedural laboratory examination Kevin Lane Facility:[facility] Start: 05-16-2022 ambulatory NICK YOO Facility: Start: 05-01-2022 End: 05-02-2022 ambulatory NICK YOO Facility: Start: 04-29-2022 End: 04-29-2022 ambulatory ENEDINA IVEY . Facility: Start: 04-16-2022 End: 04-17-[address] ARLETH ACHARYA . Facility: Start: 04-07-2022 End: 04-08-[address] Facility:[facility] Start: 03-24-2022 End: 03-25-2022 ambulatory REFERRED SELF Facility:[facility] Start: 02-12-2022 End: 02-13-[address] Facility:[facility] Start: 01-09-2022 End: 01-10-2022 ambulatory REFERRED SELF Facility:[facility] Start: 12-26-2021 End: 12-27-2021 ambulatory REFERRED SELF Facility:[facility] Start: 12-09-2021 End: 12-10-2021 ambulatory REFERRED SELF Facility:[facility] Start: 10-30-2021 End: 10-31-[address] Facility:[facility] Start: 10-11-2021 End: 11-11-[address] Facility:[facility] Start: 10-07-2021 End: 10-08-[address] Facility:[facility] Start: 10-06-2021 End: 10-11-[address] Facility:[facility] Start: 08-12-2021 End: 08-13-2021 ambulatory REFERRED SELF Facility:[facility] Start: 10-09-2018 End: 10-09-2018 Emergency department patient visit [facility] Start: 06-13-2018 End: 06-13-2018 Emergency department patient visit [facility] Start: 02-25-2018 End: 02-26-2018 Emergency department patient visit [facility] Start: 2017 End: 12-31-2017 Ambulatory ZHANE W TAMEZ Facility[facility] Start: 11-18-2017 End: 11-19-2017 Ambulatory ZHANE W TAMEZ Facility:[facility] Start: 10-28-2017 End: 10-29-2017 Ambulatory Rima Sparrow Facility:[facility] Start: 10-14-2017 End: 10-15-2017 Ambulatory ZHANE W TAMEZ Facility:[facility] Start: 09-16-2017 End: 09-17-2017 Ambulatory ZHANE W TAMEZ Facility:[facility] Start: 06-24-2017 Ambulatory ZHANE W TAMEZ Facility :[facility] Start: 04-20-2017 End: 04-21-2017 Ambulatory ZHANE W TAMEZ Facility:[facility] Procedures Date Procedure Procedure Detail Performing Clinician Start: 08-27-2022 Cystoscopic removal of ureteric stent Diana HAWKINS Start: 07-23-2022 Cystoscopic insertio n of ureteric stent Dianaatul HAWKINS Start: 10-07-[address] Comment on above: Performed By: #### 3 [id number] #### [address] Start: 10-09-2018 Ct abdomen & pelvis [...] 02-25-2018 Basic metabolic panel calcium total ZHANE TAMEZ Start: 02-25-2018 Blood count complete auto&auto difrntl wbc ZHANE TAMEZ Start: 02-25-2018 Gonadotropin chorionic qualitative ZHANE TAMEZ Start: 02-25-2018 Prothrombin time ZHANE N IELSEN Start: 02-25-2018 Thromboplastin time partial plasma/whole blood ZHANE TAMEZ Start: 02-25-2018 Urnls dip stick/tabl et reagent auto microscopy ZHANE TAMEZ Start: 10-14-2017 ASSESS ZHANECLOVER MATHIS EN Start: 10-14-2017 BEDREST ZHANE DELFINA EN Start: 10-14-2017 Continuous pulse oximetry ZHANE TAMEZ Start: 10-14-2017 INITIATE OXYGEN THERAPY PROTOCOL ZHANE TAMEZ Start: 10-14-2017 NEURO/VASCULAR CHECKS E AIDEN TAMEZ Start: 10-14-2017 NOTIFY PHYSICIAN (SPECIFY) ZHANE TAMEZ Start: 10-14-2017 NURSING COMMUNICATION E AIDEN TAMEZ Start: 10-14-2017 VITAL SIGNS ZHANE DELFINA EN Start: 10-14-2017 INITIATE OXYGEN THERAPY PROTOCOL ZHANE TAMEZ Start: 10-14-2017 NURSING COMMUNICATION E AIDEN TAMEZ Start: 10-14-2017 BEDREST ZHANE DELFINA EN Start: 10-14-2017 NOTIFY PHYSICIAN (SPECIFY) ZHANE TAMEZ Start: 10-14-2017 VITAL SIGNS ZHANE DELFINA EN Start: 10-14-2017 DISCHARGE PATIENT ZHANE ELLERELSEN Start: 10-14-2017 INSERT PERIPHERAL IV ER CLOVER TAMEZ Appendectomy Diana ROSS Arthroplasty of knee Diana HAWKINS Arthroscopy of knee Diana HAWKINS Bypass of stomach Diana GRIMES Cholecystectomy Diana ALVARADO Hysterectomy Diana HAWKINS Implantation of temp orary spinal cord stimulator Diana HAWKINS Tonsillectomy Diana HAWKINS Plan of Treatment Date Care Activity Detail Author Start: 05-28-2023 [facility] Iron binding capacit y [Mass/volume] in Serum or Plasma [facility] Iron saturation [Mas s Fraction] in Serum or Plasma [facility] Immunizations Immunization Date Immunization Notes Care Provider [facility] 10-08-2021 SARS-CoV-2 (COVID-19 ) mRNA BNT-162b2 vax Dianaatul HAWKINS [facility] 01-30-2021 SARS-CoV-2 (COVID-19 ) mRNA BNT-162b2 vax Diana HAWKINS [facility] 01-09-2021 SARS-CoV-2 (COVID-19 ) mRNA BNT-162b2 vax Diana HAWKINS [facility] 07-11-2020 influenza virus vacc ine, unspecified formulation Dianaatul HAWKINS [facility] 07-03-2020 influenza virus vacc ine, unspecified formulation Diana ROSS [facility] 07-18-2019 influenza virus vacc ine, unspecified formulation Diana ROSS [facility] 07-08-2018 influenza virus vacc ine, unspecified formulation Diana HAWKINS [facility] 01-01-2016 pneumococcal polysaccharide vaccine, 23 valent Diana HAWKINS [facility] 09-17-2013 influenza virus vacc ine, unspecified formulation Diana HAWKINS [facility] 07-10-2011 tetanus toxoid, redu demar diphtheria toxoid, and acellular pertussis vaccine, adsorbed Diana HAWKINS [facility] Payers Date Payer Category Payer Unknown [id number] 2017 Self-pay 2017 Unknown 2012 Unknown [id number] 2012 Unknown [id number] 1981 Unknown [id number] 2.16.8 40.1.615121.3.579.2.173 1981 Unknown [id number] 2.16.8 40.1.134926.3.579.2.173 1981 Unknown [id number] 2.16.8 40.1.188480.3.579.2.173 1981 Unknown [id number] 2.16.8 40.1.194900.3.579.2.173 1981 Unknown [id number] 2.16.8 40.1.879513.3.579.2.647 1981 Unknown [id number] 2.16.8 40.1.573078.3.579.2.647 1981 Unknown [id number] 2.16.8 40.1.531940.3.579.2.647 1981 Unknown [id number] 2.16.8 40.1.178862.3.579.2.647 1981 Unknown [id number] 2.16.8 40.1.137398.3.579.2.647 1981 Unknown [id number] 2.16.8 40.1.898918.3.579.2.647 1981 Unknown [id number] 2.16.8 40.1.996144.3.579.2.647 1981 Unknown [id number] 2.16.8 40.1.277849.3.579.2.647 1981 Unknown [id number] 2.16.8 40.1.407943.3.579.2.647 1981 Unknown [id number] 2.16.8 40.1.773924.3.579.2.647 1981 Unknown [id number] 2.16.8 40.1.473530.3.579.2.647 1981 Unknown [id number] 2.16.8 40.1.835053.3.579.2.647 1981 Unknown [id number] 2.16.8 40.1.169239.3.579.2.647 1981 Unknown [id number] 2.16.8 40.1.238797.3.579.2.647 1981 Unknown [id number] 2.16.8 40.1.355341.3.579.2.647 1981 Unknown [id number] 2.16.8 40.1.535736.3.579.2.647 1981 Unknown [id number] 2.16.84 0.1.468551.3.579.2.593 1981 Unknown [id number] 2.16.84 0.1.971678.3.579.2.593 1981 Unknown [id number] 2.16.84 0.1.263826.3.579.2.593 1981 Unknown [id number] 2.16.84 0.1.451095.3.579.2.593 1981 Unknown [id number] 2.16.84 0.1.929944.3.579.2.593 1981 Unknown [id number] 2.16.84 0.1.496285.3.579.2.593 1981 Unknown [id number] 2.16.84 0.1.672413.3.579.2.593 1981 Unknown [id number] 2.16.84 0.1.611440.3.579.2.593 1981 Unknown [id number] 2.16.84 0.1.752875.3.579.2.593 1981 Unknown [id number] 2.16.84 0.1.071719.3.579.2.593 1981 Unknown [id number] 2.16.84 0.1.057114.3.579.2.593 1981 Unknown [id number] 2.16.84 0.1.751673.3.579.2.593 1981 Unknown [id number] 2.16.84 0.1.696688.3.579.2.593 1981 Unknown [id number] 2.16.84 0.1.587711.3.579.2.593 1981 Unknown [id number] 2.16.84 0.1.055172.3.579.2.593 1981 Unknown [id number] 2.16.84 0.1.678722.3.579.2.593 1981 Unknown [id number] 2.16.84 0.1.577294.3.579.2.593 1981 Unknown [id number] 2.16.84 0.1.908185.3.579.2.593 1981 Unknown [id number] 2.16.8 40.1.103367.3.579.2.727 1981 Unknown [id number] 2.16.8 40.1.084309.3.579.2.727 1981 Unknown [id number] 2.16.8 40.1.119404.3.579.2.727 1981 Unknown [id number] 2.16.8 40.1.469652.3.579.2.727 1959 Self-pay [id number] Unknown [id number] 2.16.8 40.1.944807.3.579.2.531 Social History Date Type Detail Facility Start: 06-29-2022 End: 09-13-2023 Tobacco smoking status Ex-smoker (finding) [facility] Sex Assigned At Female [facility] Start: 1980 Sex Assigned At Female F [facility] Tobacco smoking status Never [facility] Functional Status Date Assessment Result Facility 09-13-2023 Functional Status N/A [facility] 06-29-2022 Functional Status N/A [facility] Clinical Notes 06-16-2022 to 09-13-2023 Note Date [...] from Dr Acharya due to kidney stone. [facility] ER 08/11/23 KUB & CT 08/11/23 Dr Acharya prescribed Promethazine & Cipro 500mg BID [id number]. [facility] ER 09/08/23 CC: Lt Flank Pain BUN 14 Crea 0.66 eGFR >90 CT ap w/o - small stone Lt Kidney 4-5mm Pt had CT @ [facility] in January, July & August. They are [...] Acharya prescribed Promethazine and Cipro 500mg bid [id number]. Reports Dr. Acharya also started her on [...] ongoing for 1month (more content not included)... [facility] Comment on above: Result Comment: Elec tronically Signed By: Diana HAWKINS MD\.br\Date and Time Signed: 09/13/23 13:02 EST\.br\Electronically Co-Signed By: Kandice Hardy\Date and Time Co-Signed: 09/13/23 12:56 EST 09-13-2023 [...] including vitamins, herbs, eye drops, creams, and wtzg-mbf-vezkdlo medicines. Any problems you or family members [...] provider tells you to take them. Taking blyw-twr-dvegqhs medicines, vitamins, herbs, and supplements. Tests You [...] Follow these instructions at home: Medicines Take irca-tji-pgpfqbl and prescription medicines only as told by [...] provider. Document Revised: 06/10/2022 Document Reviewed: 05/09/2021 [employer] Patient Education 2022 [employer]. 09/13/2023 12:55:19 Hematuria, Adult Hematuria, Adult Hematuria [...] Follow these instructions at home: Medicines Take edog-orl-mzhekiw and prescription medicines only as told by [...] or the blood stops without treatment. Take oyis-qjj-wkijrgq and prescription medicines only as told by your health care provider. Drink enough fluid to keep your urine pale yellow. This information is not intended to replace advice given to you by your health care provider. Make sure you discuss any questions you have with your health care provider. Document Revised: 05/28/2021 Document Reviewed: 05/28/2021 [employer] Patient Education 2022 [employer]. Follow Up Care 08/20/2023 11:43:21 With:ROSS GENTILE, Diana Goss, URL Address: [facility] [address], [place] [address]- [phone] When: Unknown Comments:myra cysto [facility] Note Urology Cystoscopy Cystoscopy is a [...] including vitamins, herbs, eye drops, creams, and cxgk-quv-bwzhwud medicines. ? Any problems you or family [...] tells you to take them. ? Taking cdon-clb-yfewlng medicines, vitamins, herbs, and supplements. Tests You [...] these instructions at home: Medicines ? Take zpfo-buz-dgwjzms and prescription medicines only as told by [...] the department th (more content not included)... [facility] 08-19-2023 Note Pain Medicine Medical [address] [address] Subjective Patient ID: Elvi Moore is a [...] retention loop lost. 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 Do not start before August 20, 2023. - HYDROcodone-acetaminophen (Pollok) 5-325 mg tablet; Take 1 tablet by mouth if needed in the morning and at bedtime for severe pain (8-10 pain score). Do not start before September 19, 2023. Other chronic postprocedural pain - HYDROcodone-acetaminophen (Pollok) 5-325 mg tablet; Take 1 tablet by mouth if needed in the morning and at bedtime for severe pain (8-10 pain score). Do not start before August 20, 2023. - HYDROcodone-acetaminophen (Pollok) 5-325 mg tablet; Take 1 tablet by [...] to explain the condition. PLAN: 1. Refill Pollok 5/325mg BID PRN. Okay to fill on fill date 2. Patient instructed to contact us should she receive or prior to filling any additional opioid medications. 3. MAPS/OARRS pulled and reviewed. 4. Lumbar xrays reviewed with patient and reassured of proper lead placement and no migration issues. Continue optimization of neurostimulation 5. RTC in 6-8 weeks with CANDY DEPOSITING MACHINE OPERATOR for med check All questions are answered, [...] condition which requires (more content not included)... [facility] 07-20-2023 [place] [address] Subjective Patient ID: Elvi Moore is a [...] worse. At her last appointment on 06/01/2023, [employer] rep was at bed side and changed her settings. However, the patient feels this made it worse and changed her stimulator back to her original settings. Of note, patient sent a message on 07/07/2023 saying the SCS took away the martinez pain, but that she still has significant knee pain. We provided her with the contact number for the [employer] Rep. Patient has repeatedly called the number we provided, but has still not been able to get a hold of the [employer] rep. Pain Medications: Pollok 5-325 BID. Pain relief lasts around 6 [...] from the pro (more content not included)... [facility] 06-01-2023 Note Attestation signed by Arjun Miner MD at 06/03/2023 12:16 PM I saw and evaluated the patient, participating in the holloway portions of the service. I reviewed the resident???s note. I agree with the resident???s findings and plan. Arjun Miner MD Pain Medicine Medical [address] [address] Subjective Patient ID: Elvi Moore is a [...] working well. PLAN: 1. DRG stimulator implanted (Jackson): rep at bed side, changing settings to further optimize pain control 2. Slowly titrated down on requirment of norco 3. Medication: continue current script of norco 5/325. 4. Continue lumbar and core strengthening 5. RTC 4 [facility] 05-04-2023 Note Attestation signed by Arjun Miner [...] type 1 of left lower extremity HYDROcodone-acetaminophen (Pollok) 5-325 mg tablet 2. History of total knee arthroplasty, left 3. Morbid obesity (CMS/HCC) 4. Other chronic postprocedural pain 5. Complex regional pain syndrome type 1 of left lower extremity HYDROcodone-acetaminophen (Pollok) 5-325 mg tablet chronic, uncontrolled, awaiting DRG stimulator implant 6. Presence of neurostimulator Pain Medicine [address] [address] Subjective Patient ID: Elvi Moore is a 42 y.o. female. Date:05/04/23 05/04/23 05/04/23 CC: Chief Complaint Patient presents with Follow-up S/P Jackson Implant 1 week post-op. Within the first few days her knee was 70% improvement in pain relief, while her incision site is still very sore at a 25% improvement since the procedure. SUBJECTIVE: Elvi Moore is a 42 y.o. [...] DRG. She is currently spacing out her Pollok 5/325 every 6 hours compared to every 4 hours due to the incisional pain. Discussed chronic pain, medication use, treatment goals. Medication risk and benefits discussed. The Spine Diagram and Test results were used to explain the condition. PLAN: 1. Remove sutures today of incision site. 2. Intervention: DRG stimulator implanted (Chir[employer]) , have patient reach out to [facility] for any further 3. Medication: continue current script of norco 5/325. Patient scheduled for a refill 05/19/2023. Patient was instructed to take more of her norco on the current script 4. Continue lumbar and core strengthening 5. RTC [facility] 04-28-2023 Note No concerns as per call back mari delines [facility] 04-28-2023 Note Patient: Elvi tilley Procedure Summary Date: 04/28/23 Room / Location: [facility] OPERATING ROOM 04 / [facility] Operating Room Anesthesia Start: 0850 Anesthesia Stop: 112 Procedure: INSERTION, PULSE GENERATOR, SPINAL CORD STIMULATOR [...] per anesthesia protocol. No notable events documented. 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 Do not wear perfume, make-up, nail hungarian, or lotions on the day of your [...] need to make any changes, please call [phone]. Notify your surgeon if you develop any illness such as a cold, cough, fever, sore throat or vomiting between now and your surgery. Thank you for entrusting us with your care. [facility] Surgical Services Team [facility] 03-17-2023 [place] [address] Subjective Patient ID: Elvi Moore is a [...] trial. She will have DRG trial with [employer]. She states she is mainly concerned about [...] the limited duration of benefit. Currently taking Pollok 5-325 mg daily which brings her pain [...] joint movement) Y (more content not included)... [facility] 03-05-2023 Note Subjective Patient ID: Elvi Moore is a 42 y.o. female. Patient called requesting refill of Pollok. She underwent successful SCS-DRG trial and awaiting permanent implant PA. PDMP reviewed and last fill on 01/31/23. Will provide 2 week rx and further refill will require office visit. Assessment/Plan Diagnoses and all orders for this visit: Complex regional pain syndrome type 1 of left lower extremity [facility] 02-18-2023 Note Pain Medicine Medical [address] [address] Subjective Patient ID: Elvi Moore is a [...] old female here for follow up after [facility] evaluation on 12/29 for SCS and is determined a good candidate for SCS trial. She will have DRG trial with [employer]. She states she is mainly concerned about [...] the limited duration of benefit. Currently taking Pollok 5-325 mg daily which brings her pain [...] no other diagn (more content not included)... 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 cyanocobalamin, vitamin B-12, 1,000 mcg/mL kit Inject as directed every 30 (thirty) days. diclofenac (Voltaren) 1 % topical gel apply 4 grams to affected area ferrous sulfate 325 (65 Fe) MG tablet every 12 (twelve) hours. HYDROcodone-acetaminophen (Pollok) 5-325 mg tablet Take 1 tablet by [...] - normal exam Plan ASA 2 Mild [facility] 01-08-2023 [place] [address] Subjective Patient ID: Elvi Moore is a [...] Medication (See MAR), Heat applied, Cold applied (Pollok and tylenol) Response to Interventions: Pollok works for about 6 hours, ice and heat do not help 42 year old female here for follow up after [facility] evaluation on 12/29 for SCS and is determined a good candidate for SCS trial. She will have DRG trial with [employer]. She states she is mainly concerned about [...] the limited duration of benefit. Currently taking Pollok 5-325 mg daily which brings her pain [...] asymmetry Y Motor/Trop (more content not included)... [facility] 01-04-2023 Hospital Discharge instructions Patient Education 01/04/2023 [...] include: ?Spinach. ?Rhubarb. ?Beets. ?Potato chips and palestinian fries. ?Nuts. If you regularly take a diuretic medicine, make sure to eat at least 1 2 fruits or vegetables high in potassium each day. These include: ?Avocado. ?Banana. ?[place], prune, carrot, or tomato juice. ?Baked potato. [...] Casseroles. Pizza. Lasagna. Frozen meals. Potato chips. Montserratian fries. Summary You can reduce your risk [...] 01/22/2012 Document Revised: 01/17/2020 Document Reviewed: 09/07/2017 [employer] Patient Education 2020 [employer]. Follow Up Care 10/29/2022 14:23:18 With:ROSS GENTILE, Diana Goss, URL Address: [facility] [address] , [place] [id number]- When: Unknown [facility] 12-24-2022 Note Attestation signed by Arjun Miner [...] where the trial [place] [address] Subjective Patient ID: Elvi Moore is a [...] the limited duration of benefit. Currently taking Pollok 5-325 mg daily which brings her pain [...] lateral > media (more content not included)... [facility] 12-11-2022 Note Post call Pt states the stabbing pain 10/10 is somewhat better now a 6. Feels like cramping pain. Reminded of follow up in clinic. [facility] 11-24-2022 Note History Referral Source: [facility] Orthopedics 11/25/22 CC: Chief Complaint [...] unremarkable. 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 Past History of Treatments: Patient has tried other professional care of: OPPT (last performed in 07/2022) Trialed medications: Ibuprofen Current Medications for Associated Pain: Pollok 5/325, Amitriptyline 50 qhs Current Outpatient Medications [...] 06/01/22 Left TKA (more content not included)... [facility] 11-24-2022 Note History Referral Source: [facility] Orthopedics 11/25/22 CC: Chief Complaint [...] unremarkable. 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 Past History of Treatments: Patient has tried other professional care of: OPPT (last performed in 07/2022) Trialed medications: Ibuprofen Current Medications for Associated Pain: Pollok 5/325, Amitriptyline 50 qhs Current Outpatient Medications [...] 06/01/22 Left TKA (more content not included)... [facility] 11-20-2022 Note Orthopaedic Surgery Outpatient Visit Note [...] Stress Concern Presen (more content not included)... [facility] 11-19-2022 Note Please schedule an a ppointment for her for evaluation of the knee tomorrow afternoon. [facility] 11-13-2022 Note Talked with patient about her current situation with her knee. Discussed cultures and after discussion with Dr. Lane we will give her a referral to pain management. [facility] 11-05-2022 Note Spoke with lab and new order was placed. [facility] 11-03-2022 Note Orthopaedic Surgery Outpatient Visit Note [...] Days of E (more content not included)... [facility] 10-21-2022 Note RECURRENT PAIN AT ABDULLAHI RGICAL KNEE; RECOMMENDED ER EVALUATION PER [facility] ORTHO [facility] 10-21-2022 Note If pain is 10/10 unc ontrolled I would recommend going to ER for further evaluation. [facility] 10-20-2022 Note Orthopaedic Surgery Outpatient Visit Note [...] No Physical Activ (more content not included)... [facility] 06-29-2022 Evaluation + Plan note Diagnostic Tests [facility] Urine [facility] ([facility]) 06/29/22 [facility] 06-29-2022 Hospital Discharge instructions Patient Education 06/29/2022 [...] Follow these instructions at home: Medicines Take hzxs-ccl-odyvvew and prescription medicines only as told by [...] or the blood stops without treatment. Take lbqw-dht-svfuren and prescription medicines only as told by your health care provider. Drink enough fluid to keep your urine clear or pale yellow. This information is not intended to replace advice given to you by your health care provider. Make sure you discuss any questions you have with your health care provider. Document Released: 09/27/2006 Document Revised: 02/21/2020 Document Reviewed: 10/30/2017 [employer] Patient Education 2020 [employer] Follow Up Care 05/06/2022 15:50:29 With:ROSS GENTILE, Diana Goss, URL Address: [facility] [address] [place] [address]- [phone] When: Unknown [facility] 06-16-2022 Note MR#: [id number] I [facility] Pt. Name: Elvi Moore Admitted: 06/01/2022 Discharged: [...] A/Alvin Cavazos MD Date Trans: 06/16/2022 02:27 P/mmo [id number] cc: Arleth Acharya M.D. [place] [id number] [facility] [place] [id number] [facility] Evaluation + Plan note Future Appointments Appointment Date:01/11/2023 01:45:00 PM Scheduled Provider:Diana HAWKINS MD Location:[facility] Appointment Type:URO Office Visit [facility] Evaluation note No assessment information availa [facility] Work Phone: Hospital course Narrative No data available for this section [facility] Progress note No data available for this section [facility] Summary Purpose Family History No Family History [...] section and content) DATE CREATED AUTHOR 03/31/2018 [facility] DATE CREATED AUTHOR AUTHOR'S ORGANIZ ATION 10/11/2018 [facility]la DATE CREATED AUTHOR AUTHOR'S ORGANIZ ATION 06/23/2022 [facility] DATE CREATED AUTHOR AUTHOR'S ORGANIZ ATION 01/28/2023 [facility] DATE CREATED AUTHOR AUTHOR'S ORGANIZ ATION 07/31/2023 [facility] DATE CREATED AUTHOR AUTHOR'S ORGANIZ ATION 09/10/2023 [facility] DATE CREATED AUTHOR AUTHOR'S ORGANIZ ATION 09/28/2023 [facility] Care Team (unrecognized sect ion and content) Team Status: Active Member Role Status Dates Arleth Acharya MD Primary Care Provider Active Team Status: Active Member Role Status Dates Arleth Acharya MD Primary Care Provider, Referring Pr sebastian Active Osiris Calderón APRN Attending Provider Kiana argueta Goals (unrecognized section and content) Goals may [...] BE BASED ON THE PRIMARY CLINICAL RECORDS. [facility]. provides no warranty or guarantee of the accuracy or completeness of information in this document.
== END 2023-09-16 10:37 | disposition home or self-care (01) ==
PROVIDERS: PCP Family Medicine; Visit Provider Urology
PROC: (CPT 918; principal; 2023-09-16 08:00)
DX: N20.0 Calculus of kidney (principal); R10.9 Unspecified abdominal pain; Z87.442 Personal history of urinary calculi; Q62.10 Congenital occlusion of ureter, unspecified; F41.9 Anxiety disorder, unspecified; F32.A Depression, unspecified; R31.21 Asymptomatic microscopic hematuria; Z90.49 Acquired absence of other specified parts of digestive tract; Z90.710 Acquired absence of both cervix and uterus; Z98.84 Bariatric surgery status; Z87.891 Personal history of nicotine dependence
CPT/HCPCS: 52356; 76000; 82365; 99999; J1170; J2704

== ENCOUNTER 2023-10-01 16:15 | Emergency (ER) | payer OTHER, SELFPAY ==
[2023-10-01 16:24] VITALS: BP 125/107; PULSE 94; RESP 20; TEMP 36.7; O2SAT 100; BMI 24.2
--- OUTSIDE RECORDS SUMMARY | 2023-10-01 16:45 | XMS_ITS | CCD ---
Author Name Unknown Address [address] [place] [address] [facility] Care Team Providers Care Entry Level Installation Technician Name Role Phone JAY JAY ZHANE W [...] Care Unavailable SELF, REFERRED Primary Care Unavailable FORSQASIMY, JORDEN D Admitting Unavailable MARY GRACE, JORDEN [...] Care Unavailable FORSHEY, JORDEN D Admitting Unavailable FORSQASIMY, JORDEN D Attending Unavailable SELF, REFERRED Referring [...] Unavailable MD Arleth Acharya Primary Care Provider [phone] MD Arleth Acharya Referring Provider [phone] DO Calderón Attending Provider Osiris Calderón Admitting [...] Drug Allergy 05-29-20 15 Unknown (qualifier value) [facility] Repository (5 sources) meperidine; Translations: [Demerol HCl] Drug Allergy [facility] Repository (2 sources) Meperidine Drug Allergy 08-01-20 13 [facility] Repository (1 source) Desonide Drug Allergy [facility] Repository (3 sources) Ketorolac; Translations: [ketorolac] Drug Allergy 11-22-19 22 Unknown Reaction [facility] (3 sources) Meperidine; Translations: [meperidine] Drug Allergy 08-01-20 13 Unknown Reaction [facility] (1 source) Desonide; Translations: [DESONIDE] Drug Allergy 01-09-20 21 [facility] Repository (2 sources) Prochlorperazin e; Translations: [PROCHLORPERAZI NE] Drug Allergy 02-12-20 23 Hallucinations (finding) [facility] Repository (1 source) Prochlorperazin e; Translations: [Compazine] Drug Allergy [facility] Repository (1 source) No Known Medication Allergies; Translations: [No Known Medication Allergies] Propensity to adverse reactions (disorder) [facility] Repository Medications Current Medications Medication Drug Class(es) Dates Sig (Normalized) Sig (Original) acetaminophen 325 mg / HYDROcodone bitartrate 5 mg oral tablet (3 sources) Opioid Agonist Start: 05-27-2023 take 1 tablet by mouth twice daily Hydrocodone-Aceta minophen Active 1 TAB PO Twice daily May 27, 2023 12:00am Start: 07-27-2022 [place] 325 mg-5 mg oral tablet 1 tab(s), Oral, BID Pain 8-10, 20 tab(s), Refill(s) 0, [id number], 167, cm, 06/29/22 9:28:00 EDT, Height/Length Dosing, 69, kg, 06/29/22 9:28:00 EDT, Weight Dosing Start Date: 07/27/22 Status: Ordered Start: 06-29-2022 take 1 tablet by mary th every six hours [place] 325 mg-5 mg oral tablet tab(s), Oral, [...] Onset: 12-09-2021 Chronic Other aftercare (1 source) 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; Translations: [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] Onset: 06-03-2022 Episodic Other aftercare (2 sources) Other assisted (current) drug therapy; Translations: [OTHER 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 Darleen ble to display) September 27, 2023 [place] [address] : 1980 To Whom It May Concern, Please excuse above patient from work. Date of Illness: From: 09/16/2023 To: 09/28/2023 May Return to Work On:09/29/2023 Restrictions: No Restrictions Comments: Any questions, please call our office Sincerely, [facility] [address] [facility], [place] [address] [facility] Provider Letter (Inserted Image. Darleen ble to display) September 27, 2023 [place] [address] : 1980 To Whom It May Concern, Please excuse above patient from work. Date of Illness: From: 09/16/2023 To: 09/28/2023 May Return to Work On: 09/29/2023 Restrictions: No Restrictios Comments: _ Sincerely, [facility] [address] [place] [address] [facility] Formson 09-22-2023 Forms [id number]#1.00TIFF [facility] RAD - MISCon 09-21-2023 RAD - MISC [id number]#1.00TIFF [facility] Provider Letteron 09-20-2023 Provider Letter (Inserted Image. Darleen ble to display) September 20, 2023 [place] [address] : 1980 To Whom It May Concern, Please excuse above patient from work. Date of Illness: From: 09/16/23 To: 09/21/23 May Return to Work On: 09/22/23 Restrictions: N/A Comments: Patient may return to work 09/22/23. Patient had a surgical procedure done 09/16/[address] Diana Hawkins. Sincerely, [facility] at [facility] ECG 12-Leadon 09-17-2023 ECG 12-Lead [id number]#1.00TIFF [facility] Lab Reportson 09-17-2023 Lab Reports [id number]#1.00TIFF [facility] RAD - CT Reporton 09-17-2023 RAD - CT Report [id number]#1.00TIFF Normal [facility] RAD - MISCon 09-17-2023 RAD - MISC [id number]#1.00TIFF [facility] RAD - Ultrasound Reporton RAD - Ultrasound Report [id number]#1.00TIFF [facility] Operative Reporton Operative Report [id number]#1.00TIFF [facility] ED Note-Physicianon 09-14-20 ED Note-Physician [id number]#1.00TIFF [facility] Insurance Correspondenceon 11-15-2022 Insurance Correspondence [id number]#1.00TIFF [facility] RAD - CT Reporton 09-14-2023 RAD - CT Report [id number]#1.00TIFF [facility] RAD - CT Report [id number]#1.00TIFF Scotty Cuellar [facility] Ambulatory Visit Summaryon 1 11-14-2022 Ambulatory Visit Summary ELVI MOORE :1980 Visit Date:09/13/2023 Ambulatory Visit Instructions Your Diagnosis Kidney stone Gross hematuria Left flank pain Tests Performed Urnls Dip Stick Auto w/o Microscopy POC 01885 Your Care Team Attending Physician - Diana [...] Follow Up with ROSS GENTILE, Diana Goss, JAKE When: Comments: sched cysto Where: [facility] [address] , [place] [address]- [phone] Medications What How Much When Instructions Unchanged [...] Urnls Dip Stick Auto w/o Microscopy POC 61962 (09/13/2023) Bilirubin Urine Dipstick - Negative Blood Urine Dipstick - 2+ Moderate Glucose Urine Dipstick - Negative Ketones Urine Dipstick - Negative Leukocytes Urine Dipstick - Negative Nitrite Urine Dipstick - Negative Protein Urine Dipstick - Negative Specific Placida Urine Dipstick - 1.025 Urine Appearance Urine [...] including vitamins, herbs, eye drops, creams, and ekbb-tdf-rttyhee medicines. ? Any problems you or family members have had with anesthetic medicines. ? Any blood disorders you have. ? Any surgeries you have had. ? Any m (more content not included)... [facility] Consent for Procedure/Surger yon 09-13-2023 Consent for Procedure/Surgery [id number]#1.00TIFF [facility] 36on 09-08-2023 36 Patient seen in the ER for a large kidney stone. Was prescribed Oxycodone medication for pain discomfort. Patient would like to know if this will be ok for her to get from pharmacy. Please advise [phone]. Thank you [facility] Consultation Noteon 08-23-20 Consultation Note [id number]#1.00TIFF [facility] Lab Reportson 08-23-2023 Lab Reports [id number]#1.00TIFF [facility] Consultation Noteon 08-20-20 Consultation Note [id number]#1.00TIFF [facility] Follow-Upon 08-19-2023 Follow-Up [id number] Madyson Moore 1980 F Date Provider Department Center 08/19/2023 Woody-ARJUN MINER PAIN [facility] Family History Problem Relation Age of Onset Brain cancer Mother Breast cancer Sister Kidney cancer Maternal Grandmother Prostate cancer Paternal Grandfather Cancer Father Cancer Sister Family Status - Relation Status Age at Mother Sister Maternal Grandmother Paternal Grandfather Father Sister Level of Service:75011 MD OFFICE/OUTPATIENT ESTABLISHED MOD MDM 30-39 MIN Reason for Visit and Comments: Follow-up [068009] - Chronic Left Knee Pain Normal [facility] Follow-Upon 07-20-2023 Follow-Up [id number] Madyson Moore 1980 F Date Provider Department Center 07/20/2023 ARJUN ROSE MP PAIN [facility] Family History Problem Relation Age of Onset Brain cancer Mother Breast cancer Sister Kidney cancer Maternal Grandmother Prostate cancer Paternal Grandfather Cancer Father Cancer Sister Family Status - Relation Status Age at Mother Sister Maternal Grandmother Paternal Grandfather Father Sister Level of Service:65595 MD OFFICE/OUTPATIENT ESTABLISHED MOD MDM 30-39 MIN Reason for Visit and Comments: Follow-up [933892] - Left knee pain [facility] Orders Onlyon 07-07-2023 Orders Only [id number] TeresaMadyson ma 1980 Date Provider Department Center 07/07/2023 RUKHSANA ESPINOZA MP PAIN [facility] Family History Problem Relation Age of Onset Brain cancer Mother Breast cancer Sister Kidney cancer Maternal Grandmother Prostate cancer Paternal Grandfather Cancer Father Cancer Sister Family Status - Relation Status Age at Mother Sister Maternal Grandmother Paternal Grandfather Father Sister [facility] 36on 06-09-2023 36 Approving, but needs appt for additional refills. [facility] 36 Patient is cayla dsouza her [place] 5/325 refill, needs it before the weekend. Please and thank you so much. [facility] Follow-Upon 06-01-2023 Follow-Up [id number] Madyson Moore 1980 Date Provider Department Center 06/01/2023 ARJUN ROSE [facility] Family History Problem Relation Age of Onset Brain cancer Mother Breast cancer Sister Kidney cancer Maternal Grandmother Prostate cancer Paternal Grandfather Cancer Father Cancer Sister Family Status - Relation Status Age at Mother Sister Maternal Grandmother Paternal Grandfather Father Sister Level of Service:18048 MD OFFICE/OUTPATIENT ESTABLISHED LOW MDM 20-29 MIN (GC) Reason for Visit and Comments: Med Management [[id number]] - Left Leg Pain No refills needed today [facility] Ferritinon 05-28-2023 Ferritin [Mass/Vol] 4.9 ng/mL Low 11.0-306.8 [facility] Comment on above: Result Comment: PERF ORMED BY: [facility] [address] [place] [address] PATHOLOGIST IMAGING SCIENCE PROFESSOR MELISSA WAGNER M.D. Performed By: #### S CAN CBC, JANESSA, FE and TIBC #### [facility] [address] [place] [address] Iron and TIBC Profileon 05-11 % Iron Saturation 2.5 % Low 20-50 [facility] Comment on above: Performed By: #### S CAN CBC, JANESSA, FE and TIBC #### [facility] [address] [place] [address] Iron [Mass/Vol] 13 ug/dL Low 50-212 [facility] Comment on above: Performed By: #### S CAN CBC, JANESSA, FE and TIBC #### [address] Total Iron Binding Capacity 517 ug/dL High 255-450 [facility] Comment on above: Performed By: #### S CAN CBC, JANESSA, FE and TIBC #### [address] Transferrin [Mass/Vol] 369 mg/dL High 203-362 [facility] Comment on above: Performed By: #### S CAN CBC, JANESSA, FE and TIBC #### [address] Scan and CBCon 05-28-2023 Anisocytosis Ql (Bld) Marked Normal [facility] Comment on above: Performed By: #### S CAN CBC, JANESSA, FE and TIBC #### [facility] [address] [place] [address] Basophils (Bld) [#/Vol] 0.0 10*3/uL Normal 0.0-0.2 [facility] Comment on above: Performed By: #### S CAN CBC, JANESSA, FE and TIBC #### [address] Basophils/100 WBC (Bld) 0.3 % Normal . [facility] Comment on above: Performed By: #### S CAN CBC, JANESSA, FE and TIBC #### [address] Eosinophils (Bld) [#/Vol] 0.0 10*3/uL Normal 0.0-0.45 [facility] Comment on above: Performed By: #### S CAN CBC, JANESSA, FE and TIBC #### [address] Eosinophils/100 WBC (Bld) 0.6 % Normal . [facility] Comment on above: Performed By: #### S CAN CBC, JANESSA, FE and TIBC #### [address] Erythrocyte distribution width (RBC) [Ratio] 20.1 % High 11.9-15.3 [facility] Comment on above: Performed By: #### S CAN CBC, JANESSA, FE and TIBC #### [address] Hematocrit (Bld) [Volume fraction] 28.6 % Low 34.0-46.4 [facility] Comment on above: Performed By: #### S CAN CBC, JANESSA, FE and TIBC #### [address] Hemoglobin (Bld) [Mass/Vol] 8.9 g/dL Low 11.8-15.4 [facility] Comment on above: Performed By: #### S CAN CBC, JANESSA, FE and TIBC #### [address] Hypochromasia Moderate Normal [facility] Comment on above: Performed By: #### S CAN CBC, JANESSA, FE and TIBC #### [address] Lymphocytes (Bld) [#/Vol] 2.6 10*3/uL Normal 1.00-4.8 [facility] Comment on above: Performed By: #### S CAN CBC, JANESSA, FE and TIBC #### [address] Lymphocytes/100 WBC (Bld) 37.7 % Normal . [facility] Comment on above: Performed By: #### S CAN CBC, JANESSA, FE and TIBC #### [facility] [address] MCH (RBC) [Entitic mass] 20.5 pg Low 24.7-34.3 [facility] Comment on above: Performed By: #### S CAN CBC, JANESSA, FE and TIBC #### [address] MCV (RBC) [Entitic vol] 65.8 fL Low 80-100 [facility] Comment on above: Performed By: #### S CAN CBC, JANESSA, FE and TIBC #### [address] Mean Corpuscular HGB Conc 31.1 g/dL Low 32.0-35.0 [facility] Comment on above: Performed By: #### S CAN CBC, JANESSA, FE and TIBC #### [address] Microcytosis Marked Normal [facility] Comment on above: Performed By: #### S CAN CBC, JANESSA, FE and TIBC #### [address] Monocytes (Bld) [#/Vol] 0.4 10*3/uL Normal 0.0-0.8 [facility] Comment on above: Performed By: #### S CAN CBC, JANESSA, FE and TIBC #### [address] Monocytes/100 WBC (Bld) 6.3 % Normal . [facility] Comment on above: Performed By: #### S CAN CBC, JANESSA, FE and TIBC #### [address] Neutrophils (Bld) [#/Vol] 3.8 10*3/uL Normal 1.8-7.7 [facility] Comment on above: Performed By: #### S CAN CBC, JANESSA, FE and TIBC #### [address] Neutrophils/100 WBC (Bld) 55.1 % Normal . [facility] Comment on above: Performed By: #### S CAN CBC, JANESSA, FE and TIBC #### [address] NRBC% 0.1 /100{WBC} Normal 0-0.5 [facility] Comment on above: Performed By: #### S CAN CBC, JANESSA, FE and TIBC #### [address] Ovalocytes Slight Normal [facility] Comment on above: Performed By: #### S CAN CBC, JANESSA, FE and TIBC #### [address] Platelet Estimate Normal Normal Normal [facility] Comment on above: Performed By: #### S CAN CBC, JANESSA, FE and TIBC #### [address] Platelet mean volume (Bld) [Entitic vol] 8.7 fL Normal 6.3-10.7 [facility] Comment on above: Performed By: #### S CAN CBC, JANESSA, FE and TIBC #### [address] Platelet Morphology Normal Normal Normal [facility] Comment on above: Result Comment: PERF ORMED BY: [place] [address] PATHOLOGIST IMAGING SCIENCE PROFESSOR MELISSA WAGNER M.D. Performed By: #### S CAN CBC, JANESSA, FE and TIBC #### [address] Platelets (Bld) [#/Vol] 218 10*3/uL Normal 150-450 [facility] Comment on above: Performed By: #### S CAN CBC, JANESSA, FE and TIBC #### [address] Poikilocytosis Slight Normal [facility] Comment on above: Performed By: #### S CAN CBC, JANESSA, FE and TIBC #### [address] [place] [address] [place] RBC (Bld) [#/Vol] 4.34 10*6/uL Normal 3.60-5.00 [facility] Comment on above: Performed By: #### S CAN CBC, JANESSA, FE and TIBC #### [facility] [address] Schistocytes Slight Normal [facility] Comment on above: Performed By: #### S CAN CBC, JANESSA, FE and TIBC #### [facility] [address] WBC (Bld) [#/Vol] 6.9 10*3/uL Normal 3.8-11.6 [facility] Comment on above: Performed By: #### S CAN CBC, JANESSA, FE and TIBC #### [facility] [address] 29on 05-04-2023 29 Addended by: ARJUN MINER on: 05/04/2023 11:37 AM Modules accepted: Level of Service Normal [facility] Follow-Upon 05-04-2023 Follow-Up [id number] Madyson Moore 1980 F Date Provider Department Center 05/04/2023 [facility]-ARJUN MINER PAIN [facility] Chart Close Cosign Required by: Arjun Miner MD[[id number]] Family History Problem Relation Age of Onset Brain cancer Mother Breast cancer Sister Kidney cancer Maternal Grandmother Prostate cancer Paternal Grandfather Cancer Father Cancer Sister Family Status - Relation Status Age at Mother Sister Maternal Grandmother Paternal Grandfather Father Sister Level of Service:32292 MD POSTOP FOLLOW UP VISIT RELATED TO ORIGINAL PX Reason for Visit and Comments: Follow-up [938220] - S/P Jackson Implant 1 week post-op. Within the first few days her knee was 70% improvement in pain relief, while her incision site is still very sore at a 25% improvement since the procedure. Normal [facility] HPon 04-28-2023 HP History Of Present Illness Elvi Moore is a 42 y.o. female [...] MG tablet every 12 (twelve) hours. HYDROcodone-acetaminophen ([place]) 5-325 mg tablet Take 1 tablet by [...] meds will be given Arjun Miner MD [facility] OPNOTEon 04-28-2023 OPNOTE INSERTION, PULSE GENERATOR, SPINAL CORD STIMULATOR Operative Note Date: 04/28/2023 Location: [facility] OR Name: Elvi Moore, : 1980, Diagnosis Pre-op Diagnosis * Complex regional pain syndrome type 1 of left lower extremity [G90.522] Post-op Diagnosis * Complex regional pain syndrome type 1 of left lower extremity [G90.522] Procedures INSERTION, PULSE GENERATOR, SPINAL CORD STIMULATOR 63259 - MD INSJ/RPLCMT SPI NPGR DIR/INDUXIVE COUPLING MD PRQ IMPLTJ NSTIM ELECTRODE ARRAY EPIDURAL [26841] MD ELEC ADITYA IMPLT NPGT CPLX SP/PN PRGRMG [45450] Surgeons * Arjun Miner - Primary Procedure Summary Anesthesia: Monitor Anesthesia Care ASA: III Estimated Blood Loss: 10 mL Implants Type Name Action Serial No. SLIMTIP [employer]G Explanted [id number] [employer]G Implanted [id number] PROCLAIM DRG Implanted [id number] [employer]G Implanted [id number] Staff: Irrigation Foreman: Phillip Meyer RN Scrub Person: Mercy Duarte [...] then introduced (more content not included)... Normal [facility] POCT GLUCOSE METER UNSOLICIT ED RESULTSon 04-28-2023 Glucose [Mass/Vol] 88 mg/dL Normal 70-105 [facility] Comment on above: Order Comment: Waive d Testing in the ED is performed under the ED CLIA certificate #[id number]. Result Comment: ngro bronwyn Performed By: #### L [id number] ####[facility] ([facility] [place] [place] [address] BASIC METABOLIC PANELon 07 Anion gap [Moles/Vol] 11 mmol/L Normal 7-20 [facility] Comment on above: Performed By: #### L [id number] #### [facility] ([facility]) [address] [place] [address] Calcium [Mass/Vol] 9.2 mg/dL Normal 8.6-10.3 [facility] Comment on above: Performed By: #### L [id number] #### [facility] ([facility]) [address] [place] [address] Chloride [Moles/Vol] 106 mmol/L Normal 98-107 [facility] Comment on above: Performed By: #### L [id number] #### [facility] ([facility]) [address] [place] [address] CO2 [Moles/Vol] 27 mmol/L Normal 21-31 [facility] Comment on above: Performed By: #### L [id number] #### [facility] ([facility]) [address] [place] [address] Creatinine [Mass/Vol] 0.76 mg/dL Normal 0.60-1.20 [facility] Comment on above: Performed By: #### L [id number] #### [facility] ([facility]) [address] [place] [address] GLOMERULAR FILTRATION RATE ML/MIN/1.73 SQ M.PREDICTED 100.9 mL/min/1.73m*2 Normal >60.0 [facility] Comment on above: Result Comment: [facility]???s estimated glomerular filtration rate (eGFR) [...] group of individuals. Performed By: #### L [id number] #### [facility] ([facility]) [address] [place] [address] Glucose [Mass/Vol] 64 mg/dL Low 70-100 [facility] Comment on above: Performed By: #### L [id number] #### [facility] ([facility]) [address] [place] [place] [address] Potassium [Moles/Vol] 4.3 mmol/L Normal 3.5-5.1 [facility] Comment on above: Performed By: #### L [id number] #### [facility] ([facility]) [address] [place] [address] Sodium [Moles/Vol] 140 mmol/L Normal 136-145 [facility] Comment on above: Performed By: #### L [id number] #### [facility] [address] [address] Urea nitrogen [Mass/Vol] 12 mg/dL Normal 7-25 [facility] Comment on above: Performed By: #### L [id number] #### [facility] ([facility]) [address] [place] [address] UREA NITROGEN/CREATININE (MASS RATIO) IN SER/PLAS 15.8 Normal [facility] Comment on above: Performed By: #### L [id number] #### [facility] ([facility]) [address] [place] [address] CBC WITH AUTO DIFFERENTIALon 04-15-2023 Erythrocyte distribution width (RBC) [Ratio] 17.9 % High 11.5-15.0 [facility] Comment on above: Performed By: #### L [id number] #### [facility] ([facility]) [address] [place] [address] ERYTHROCYTE MEAN CORPUSCULAR HEMOGLOBIN CONCENTRATION (G/DL) BY AUTOMATED 28.7 g/dL Low 32.0-35.0 [facility] Comment on above: Performed By: #### L [id number] #### [facility] ([facility]) [address] [place] [address] Hematocrit (Bld) [Volume fraction] 31.0 % Low 36.0-48.0 [facility] Comment on above: Performed By: #### L [id number] #### [facility] ([facility]) [address] [place] [address] Hemoglobin (Bld) [Mass/Vol] 8.9 g/dL Low 12.0-15.0 [facility] Comment on above: Performed By: #### L [id number] #### [facility] ([facility]) [address] [place] [address] MCH (RBC) [Entitic mass] 20.0 pg Low 27.0-33.0 [facility] Comment on above: Performed By: #### L [id number] #### [facility] [address] [place] [address] MCV (RBC) [Entitic vol] 69.5 fL Low 82.0-98.0 [facility] Comment on above: Performed By: #### L [id number] #### [facility] ([facility]) [address] [place] [address] NRBC (PER 100 WBCS) BY AUTOMATED COUNT 0.0 % Normal 0 [facility] Comment on above: Performed By: #### L [id number] #### [facility] ([facility]) [address] [place] [address] PLATELETS (10*3/UL) IN BLOOD AUTOMATED COUNT 294 10*3/uL Normal 150-400 [facility] Comment on above: Performed By: #### L [id number] #### [facility] ([facility]) [address] [place] [address] RBC (Bld) [#/Vol] 4.46 10*6/uL Normal 3.80-5.00 [facility] Comment on above: Performed By: #### L [id number] #### [facility] ([facility]) [address] [place] [address] WBC (Bld) [#/Vol] 4.65 10*3/uL Normal 4.00-10.60 [facility] Comment on above: Performed By: #### L [id number] #### [facility] ([facility]) [address] [place] [address] Labon 04-15-2023 Lab [id number] Modesto Moorenicole ma 1980 F Date Provider Department [place] 04/15/2023 2244-[facility] MP LAB RESOURCE MP DRAW Medical Pavi Family History Problem Relation Age of Onset Brain cancer Mother Breast cancer Sister Kidney cancer Maternal Grandmother Prostate cancer Paternal Grandfather Cancer Father Cancer Sister Family Status - Relation Status Age at Mother Sister Maternal Grandmother Paternal Grandfather Father Sister Normal [facility] MANUAL DIFFERENTIALon 2022 ANISOCYTOSIS PRESENCE IN BLOOD BY LIGHT MICROSCOPY Moderate Normal [facility] Comment on above: Performed By: #### L [id number] #### [facility] ([facility]) [address] [place] [address] BASOPHILS (10*3/UL) IN BLOOD BY CALCULATION 0.01 10*3/uL Normal 0.00-0.20 [facility] Comment on above: Performed By: #### L [id number] #### [facility] ([facility]) [address] [place] [address] BASOPHILS/100 LEUKOCYTES IN BLOOD BY AUTOMATED COUNT 0.2 % Normal 0.0-1.0 [facility] Comment on above: Performed By: #### L [id number] #### [facility] ([facility]) [address] [place] [address] EOSINOPHILS (10*3/UL) IN BLOOD BY CALCULATION 0.06 10*3/uL Normal 0.00-0.50 [facility] Comment on above: Performed By: #### L [id number] #### [facility] ([facility]) [address] [place] [address] EOSINOPHILS/100 LEUKOCYTES IN BLOOD BY AUTOMATED COUNT 1.3 % Normal 0.0-6.0 [facility] Comment on above: Performed By: #### L [id number] #### [facility] ([facility]) [address] [place] [address] HYPOCHROMIA (PRESENCE) IN BLOOD BY LIGHT MICROSCOPY Slight Normal [facility] Comment on above: Performed By: #### L [id number] #### [facility] ([facility]) [address] [place] [address] IMMATURE GRANULOCYTES (10*3/UL) IN BLOOD BY CALCULATION 0.01 10*3/uL Normal 0.00-0.20 [facility] Comment on above: Performed By: #### L [id number] #### [facility] ([facility]) [address] [place] [address] IMMATURE GRANULOCYTES/100 LEUKOCYTES IN BLOOD BY AUTOMATED COUNT 0.2 % Normal 0.0-1.0 [facility] Comment on above: Performed By: #### L [id number] #### [facility] ([facility]) [address] [place] [address] LYMPHOCYTES (10*3/UL) IN BLOOD BY CALCULATION 1.36 10*3/uL Normal 1.20-4.00 [facility] Comment on above: Performed By: #### L [id number] #### [facility] ([facility]) [address] [place] [address] LYMPHOCYTES/100 LEUKOCYTES IN BLOOD BY AUTOMATED COUNT 29.2 % Normal 20.0-45.0 [facility] Comment on above: Performed By: #### L [id number] #### [facility] ([facility]) [address] [place] [address] MICROCYTES (PRESENCE) IN BLOOD BY LIGHT MICROSCOPY Slight Normal [facility] Comment on above: Performed By: #### L [id number] #### [facility] ([facility]) [address] [place] [address] MONOCYTES (10*3/UL) IN BLOOD BY CALCUATION 0.33 10*3/uL Normal 0.10-1.00 [facility] Comment on above: Performed By: #### L [id number] #### [facility] ([facility]) [address] [place] [address] MONOCYTES/100 LEUKOCYTES IN BLOOD BY AUTOMATED COUNT 7.1 % Normal 5.0-12.0 [facility] Comment on above: Performed By: #### L [id number] #### [facility] ([facility]) [address] [place] [address] NEUTROPHILS (10*3/UL) IN BLOOD BY CALCULATION 2.9 10*3/uL Normal 1.6-7.6 [facility] Comment on above: Performed By: #### L [id number] #### [facility] ([facility]) [address] [place] [address] NEUTROPHILS/100 LEUKOCYTES IN BLOOD BY AUTOMATED COUNT 62.0 % Normal 40.0-72.0 [facility] Comment on above: Performed By: #### L [id number] #### [facility] ([facility]) [address] [place] [address] POIKILOCYTOSIS (PRESENCE) IN BLOOD BY LIGHT MICROSCOPY Slight Normal [facility] Comment on above: Performed By: #### L [id number] #### [facility] ([facility]) [address] [place] [address] POLYCHROMASIA IN BLOOD BY LIGHT MICROSCOPY Slight Normal [facility] Comment on above: Performed By: #### L [id number] #### [facility] ([facility]) [address] [place] [address] MRSA/MSSA DNA NASALon 2022 MRSA DNA Negative Normal Negative [facility] Comment on above: Order Comment: [...] preclude nasal colonization. Performed By: #### L [id number] #### [facility] ([facility]) [address] [place] [address] MSSA DNA Negative Normal Negative [facility] Comment on above: Order Comment: [...] preclude nasal colonization. Performed By: #### L [id number] #### [facility] ([facility]) [address] [place] [address] Orders Onlyon 04-15-2023 Orders Only [id number] Madyson Moore 1980 F Date Provider Department [place] 04/15/2023 RUKHSANA ESPINOZA PAIN Medical Pavi Family History Problem Relation Age of Onset Brain cancer Mother Breast cancer Sister Kidney cancer Maternal Grandmother Prostate cancer Paternal Grandfather Cancer Father Cancer Sister Family Status - Relation Status Age at Mother Sister Maternal Grandmother Paternal Grandfather Father Sister Normal [facility] PROTIME-INRon 04-15-2023 INR IN PPP BY COAGULATION ASSAY 0.99 Normal 0.90-1.10 [facility] Comment on above: Result Comment: ACCC P RECOMMENDED INR FOR WARFARIN THERAPY CONDITION INR PROPHYLAXIS OF VENOUS THROMBOSIS 2-3 (HIGH-RISK SURGERY) TREATMENT OF VENOUS THROMBOSIS 2-3 TREATMENT OF PULMONARY EMBOLISM 2-3 PREVENTION OF SYSTEMIC EMBOLISM: 2-3 ACUTE MYOCARDIAL INFARCTION TISSUE HEART VALVES VALVULAR HEART DISEASE ATRIAL FIBRILLATION RECURRENT SYSTEMIC EMBOLISM MECHANICAL HEART VALVE 2.5-3.5 FROM: ORAL ANTICOAGULANTS. MECHANISM OF ACTION, CLINICAL EFFECTIVENESS, AND OPTIMAL THERAPEUTIC RANGE. CHEST 1995;108:231S-246S. Performed By: #### L [id number] #### [facility] ([facility]) [address] [place] [address] PROTHROMBIN TIME (PT) IN PPP BY COAGULATION ASSAY 13.1 Seconds Normal 12.3-14.8 [facility] Comment on above: Performed By: #### L [id number] #### [facility] ([facility]) [address] [place] [address] Follow-Upon 03-17-2023 Follow-Up [id number] Madyson Moore 1980 F Date Provider Department Center 03/17/2023 170-RUKHSANA MILLER MP PAIN Medical Pavi Family History Problem Relation Age of Onset Brain cancer Mother Breast cancer Sister Kidney cancer Maternal Grandmother Prostate cancer Paternal Grandfather Cancer Father Cancer Sister Family Status - Relation Status Age at Mother Sister Maternal Grandmother Paternal Grandfather Father Sister Level of Service:[id number] MD OFFICE/OUTPATIENT ESTABLISHED LOW MDM 20-29 MIN Reason for Visit and Comments: Follow-up [[id number]] Normal [facility] Orders Onlyon 03-05-2023 Orders Only [id number] Madyson Moore 1980 F Date Provider Department Center 03/05/2023 274-ARJUN MINER MP PROC Medical Pavi Family History Problem Relation Age of Onset Brain cancer Mother Breast cancer Sister Kidney cancer Maternal Grandmother Prostate cancer Paternal Grandfather Cancer Father Cancer Sister Family Status - Relation Status Age at Mother Sister Maternal Grandmother Paternal Grandfather Father Sister [facility] Follow-Upon 02-18-2023 Follow-Up [id number] Madyson Moore ma 1980 F Date Provider Department Center 02/18/2023 170-RUKHSANA MILLER MP PAIN Medical Pavi Family History Problem Relation Age of Onset Brain cancer Mother Breast cancer Sister Kidney cancer Maternal Grandmother Prostate cancer Paternal Grandfather Cancer Father Cancer Sister Family Status - Relation Status Age at Mother Sister Maternal Grandmother Paternal Grandfather Father Sister Level of Service:[id number] MD OFFICE/OUTPATIENT ESTABLISHED LOW MDM 20-29 MIN Reason for Visit and Comments: Follow-up [[id number]] - LEAD ELIUD [facility] HPon 02-11-2023 HP History Of Present Illness Elvi Moore is a 42 y.o. female [...] unremarkable. 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 Past History of Treatments: Patient has tried other professional care of: OPPT (last performed in 07/2022) Trialed medications: Ibuprofen Current Medications for Associated Pain: [place] 5/325, Amitriptyline 50 qhs Procedures performed previously: [...] strength exam (more content not included)... Normal [facility] BASIC METABOLIC PANELon 05-0 Anion gap [Moles/Vol] 10 mmol/L Normal 7-20 [facility] Comment on above: Performed By: #### L [id number] #### [facility] ([facility]) [address] [place] [address] Calcium [Mass/Vol] 8.8 mg/dL Normal 8.6-10.3 [facility] Comment on above: Performed By: #### L [id number] #### [facility] ([facility]) [address] [place] [address] Chloride [Moles/Vol] 106 mmol/L Normal 98-107 [facility] Comment on above: Performed By: #### L [id number] #### [facility] ([facility]) [address] [place] [address] CO2 [Moles/Vol] 29 mmol/L Normal 21-31 [facility] Comment on above: Performed By: #### L [id number] #### [facility] ([facility]) [address] [place] [address] Creatinine [Mass/Vol] 0.72 mg/dL Normal 0.60-1.20 [facility] Comment on above: Performed By: #### L [id number] #### [facility] ([facility]) [address] [place] [address] GLOMERULAR FILTRATION RATE ML/MIN/1.73 SQ M.PREDICTED 107.7 mL/min/1.73m*2 Normal >60.0 [facility] Comment on above: Result Comment: [facility]???s estimated glomerular filtration rate (eGFR) [...] group of individuals. Performed By: #### L [id number] #### [facility] ([facility]) [address] [place] [address] Glucose [Mass/Vol] 65 mg/dL Low 70-100 [facility] Comment on above: Performed By: #### L [id number] #### [facility] ([facility]) [address] [place] [address] Potassium [Moles/Vol] 4.1 mmol/L Normal 3.5-5.1 [facility] Comment on above: Performed By: #### L [id number] #### [facility] ([facility]) [address] [place] [address] Sodium [Moles/Vol] 141 mmol/L Normal 136-145 [facility] Comment on above: Performed By: #### L [id number] #### [facility] ([facility]) [address] [place] [address] Urea nitrogen [Mass/Vol] 13 mg/dL Normal 7-25 [facility] Comment on above: Performed By: #### L [id number] #### [facility] ([facility]) [address] [place] [address] UREA NITROGEN/CREATININE (MASS RATIO) IN SER/PLAS 18.1 Normal [facility] Comment on above: Performed By: #### L [id number] #### [facility] ([facility]) [address] [place] [address] CBCon 02-08-2023 Erythrocyte distribution width (RBC) [Ratio] 17.0 % High 11.5-15.0 [facility] Comment on above: Performed By: #### L [id number] ####[facility] ([facility])[address] [place] [address] ERYTHROCYTE MEAN CORPUSCULAR HEMOGLOBIN CONCENTRATION (G/DL) BY AUTOMATED 28.3 g/dL Low 32.0-35.0 [facility] Comment on above: Performed By: #### L [id number] ####[facility] ([facility])[address] [place] [address] Hematocrit (Bld) [Volume fraction] 31.8 % Low 36.0-48.0 [facility] Comment on above: Performed By: #### L [id number] ####[facility] ([facility])[address] [place] [address] Hemoglobin (Bld) [Mass/Vol] 9.0 g/dL Low 12.0-15.0 [facility] Comment on above: Performed By: #### L [id number] ####[facility] ([facility])[address] [place] [address] MCH (RBC) [Entitic mass] 19.9 pg Low 27.0-33.0 [facility] Comment on above: Performed By: #### L [id number] ####[facility] ([facility])[address] [place] [address] MCV (RBC) [Entitic vol] 70.4 fL Low 82.0-98.0 [facility] Comment on above: Performed By: #### L [id number] ####[facility] ([facility])[address] [place] [address] PLATELETS (10*3/UL) IN BLOOD AUTOMATED COUNT 259 10*3/uL Normal 150-400 [facility] Comment on above: Performed By: #### L [id number] ####[facility] ([facility])[address] [facility] [place] [address] RBC (Bld) [#/Vol] 4.52 10*6/uL Normal 3.80-5.00 [facility] Comment on above: Performed By: #### L [id number] ####[facility] ([facility] [facility] [place] [address] WBC (Bld) [#/Vol] 5.59 10*3/uL Normal 4.00-10.60 [facility] Comment on above: Performed By: #### L [id number] ####[facility] ([facility])[address] [place] [address] Labon 02-08-2023 Lab [id number] Madyson Moore 1980 F Date Provider Department Center 02/08/2023 2244-[facility] MP LAB RESOURCE MP DRAW Medical Pavi Family History Problem Relation Age of Onset Brain cancer Mother Breast cancer Sister Kidney cancer Maternal Grandmother Prostate cancer Paternal Grandfather Cancer Father Cancer Sister Family Status - Relation Status Age at Mother Sister Maternal Grandmother Paternal Grandfather Father Sister Normal [facility] MRSA/MSSA DNA NASALon 2022 MRSA DNA Negative Normal Negative [facility] Comment on above: Performed By: #### L [id number] ####[facility] ([facility])[address] [place] [address] MSSA DNA Negative Normal Negative [facility] Comment on above: Performed By: #### L [id number] ####[facility] ([facility])[address] [place] [address] Orders Onlyon 01-29-2023 Orders Only [id number] Madyson Moore ma 1980 F Date Provider Department Center 01/29/2023 RUKHSANA ESPINOZA MP PAIN Medical Pavi Family History Problem Relation Age of Onset Brain cancer Mother Breast cancer Sister Kidney cancer Maternal Grandmother Prostate cancer Paternal Grandfather Cancer Father Cancer Sister Family Status - Relation Status Age at Mother Sister Maternal Grandmother Paternal Grandfather Father Sister Normal [facility] AMYLASEon 01-25-2023 Amylase [Catalytic activity/Vol] 64 U/L Normal 25-115 [facility] Comment on above: Performed By: #### B MP, LIPA, YVETTE, LIVER #### [facility] [address] [place] [address] Dr. Idania Roldan CBC AUTO DIFFon 01-25-2023 BASO # 0.0 103/ul Normal 0.0-0.1 [facility] Comment on above: Performed By: #### B MP, LIPA, YVETTE, LIVER #### [facility] [address] [place] [address] Dr. Idania Roldan Basophils/100 WBC (Bld) 0.3 % Normal 0.2-2.0 [facility] Comment on above: Performed By: #### B MP, LIPA, YVETTE, LIVER #### [facility] [address] [address] [address] Idania Roldan EO # 0.1 103/ul Normal 0.0-0.7 [facility] Comment on above: Performed By: #### B MP, LIPA, YVETTE, LIVER #### [facility] [address] [place] [address] Dr. Idania Roldan Eosinophils/100 WBC (Bld) 1.0 % Normal 0.9-7.0 [facility] Comment on above: Performed By: #### B MP, LIPA, YVETTE, LIVER #### [facility] [address] [place] [address] Dr. Idania Roldan Erythrocyte distribution width (RBC) [Ratio] 17.2 % Critically high 11.0-15.0 [facility] Comment on above: Performed By: #### B MP, LIPA, YVETTE, LIVER #### [facility] [address] [place] [address] Dr. Idania Roldan Hematocrit (Bld) [Volume fraction] 33.9 % Critically low 36.0-48.0 [facility] Comment on above: Performed By: #### B MP, LIPA, YVETTE, LIVER #### [facility] [address] [place] [address] Dr. Idania Roldan Hemoglobin (Bld) [Mass/Vol] 10.1 g/dL Critically low 12.0-16.0 [facility] Comment on above: Performed By: #### B MP, LIPA, YVETTE, LIVER #### [facility] [address] [place] [address] Dr. Idania Roldan IG # 0.01 10e3/ul Normal 0.00-0.03 [facility] Comment on above: Performed By: #### B MP, LIPA, YVETTE, LIVER #### [facility] [address] [place] [address] Dr. Idania Roldan IG % 0.2 % Normal 0.0-0.5 [facility] Comment on above: Performed By: #### B MP, LIPA, YVETTE, LIVER #### [facility] [address] [place] [address] Dr. Idania Roldan LYMPH # 1.7 103/ul Normal 1.2-3.8 [facility] Comment on above: Performed By: #### B MP, LIPA, YVETTE, LIVER #### [facility] [address] [place] [address] Dr. Idania Roldan Lymphocytes/100 WBC (Bld) 27.9 % Normal 20.5-60.0 [facility] Comment on above: Performed By: #### B MP, LIPA, YVETTE, LIVER #### [facility] [address] [place] [address] Dr. Idania Roldan MANUAL DIFF REQ NO Normal [facility] Comment on above: Performed By: #### B MP, LIPA, YVETTE, LIVER #### [facility] [address] [place] [address] Dr. Idania Roldan MCH (RBC) [Entitic mass] 20.7 pg Critically low 26.7-34.0 [facility] Comment on above: Performed By: #### B MP, LIPA, YVETTE, LIVER #### [facility] [address] [place] [address] Dr. Idania Roldan MCHC (RBC) [Mass/Vol] 29.8 g/dL Critically low 29.9-35.2 [facility] Comment on above: Performed By: #### B MP, LIPA, YVETTE, LIVER #### [facility] [address] [place] [address] Dr. Idania Roldan MCV (RBC) [Entitic vol] 69.6 fL Critically low 81.0-99.0 [facility] Comment on above: Performed By: #### B MP, LIPA, YVETTE, LIVER #### [facility] [address] [place] [address] Dr. Idania Roldan MONO # 0.4 103/ul Normal 0.3-0.8 [facility] Comment on above: Performed By: #### B MP, LIPA, YVETTE, LIVER #### [facility] [address] [place] [address] Dr. Idania Roldan Monocytes/100 WBC (Bld) 7.1 % Normal 1.7-12.0 [facility] Comment on above: Performed By: #### B MP, LIPA, YVETTE, LIVER #### [facility] [address] [place] [address] Dr. Idania Roldan NEUT # 3.8 103/ul Normal 1.4-6.5 [facility] Comment on above: Performed By: #### B MP, LIPA, YVETTE, LIVER #### [facility] [address] [place] [address] Dr. Idania Roldan Neutrophils/100 WBC (Bld) 63.5 % Normal 43.0-75.0 [facility] Comment on above: Performed By: #### B MP, LIPA, YVETTE, LIVER #### [facility] [address] [address] [address] Idania Roldan Platelet mean volume (Bld) [Entitic vol] 9.3 fL Critically low 9.5-13.5 [facility] Comment on above: Performed By: #### B MP, LIPA, YVETTE, LIVER #### [facility] [address] [address] [address] Idania Roldan PLT 294 103/ul Normal 150-450 [facility] Comment on above: Performed By: #### B MP, LIPA, YVETTE, LIVER #### [facility] [address] [address] [address] Idania Roldan RBC 4.87 106/ul Normal 4.20-5.40 [facility] Comment on above: Performed By: #### B MP, LIPA, YVETTE, LIVER #### [facility] [address] [address] [address] Idania Roldan WBC 6.0 103/ul Normal 4.0-11.0 [facility] Comment on above: Performed By: #### B MP, LIPA, YVETTE, LIVER #### [facility] [address] [address] ABD/PELVIS WO CONon 01-25 CT ABD/PELVIS WO CON EXAMINATION: CT ABD/PELVIS WO CON, 01/25/2023 11:34 AM EDT HISTORY: [...] kidney. No hydronephrosis or ureteral calculus identified. Gastrointestinal/Peritone um: Postoperative changes are present of a Josefa-en-Y [...] VEDA BOND Date: 2023-01-25 12:20 Normal [facility] ER URINE PROFILEon 3 Bilirubin Ql (U) SMALL Abnormal NEGATIVE [facility] Comment on above: Performed By: #### B MP, LIPA, YVETTE, LIVER #### [facility] [address] [place] [address] Dr. Idania Roldan Clarity (U) CLEAR Normal CLEAR [facility] Comment on above: Performed By: #### B MP, LIPA, YVETTE, LIVER #### [facility] [address] [address] [address] Idania Roldan Color (U) DK. YELLOW Normal YELLOW [facility] Comment on above: Performed By: #### B MP, LIPA, YVETTE, LIVER #### [facility] [address] [place] [address] Dr. Idania MENDOSA A micrscopic examina tion will be performed if indicated. Normal [facility] Comment on above: Performed By: #### B MP, LIPA, YVETTE, LIVER #### [facility] [address] [address] [address] Idania Roldan Glucose Ql (U) Negative Normal NEGATIVE [facility] Comment on above: Performed By: #### B MP, LIPA, YVETTE, LIVER #### [facility] [address] [address] [address] Idania Roldan Hemoglobin Ql (U) LARGE Abnormal NEGATIVE [facility] Comment on above: Performed By: #### B MP, LIPA, YVETTE, LIVER #### [facility] [address] [address] [address] Idania Roldan Ketones Ql (U) TRACE Abnormal NEGATIVE [facility] Comment on above: Performed By: #### B MP, LIPA, YVETTE, LIVER #### [facility] [address] [place] [address] Dr. Idania Roldan LEUKOCYTES Negative Normal NEGATIVE [facility] Comment on above: Performed By: #### B MP, LIPA, YVETTE, LIVER #### [facility] [facility] [address] [place] [address] Dr. Idania Roldan Nitrite Ql (U) Negative Normal NEGATIVE [facility] Comment on above: Performed By: #### B MP, LIPA, YVETTE, LIVER #### [facility] [address] [place] [address] Dr. Idania Roldan pH (U) 5.0 [pH] Normal 5-9 [facility] Comment on above: Performed By: #### B MP, LIPA, YVETTE, LIVER #### [facility] [address] [place] [address] Dr. Idania Roldan SPEC GRAVITY >=1.030 Abnormal 1.005-<=1.02 5 [facility] Comment on above: Performed By: #### B MP, LIPA, YVETTE, LIVER #### [facility] [address] [place] [address] Dr. Idania Roldan UA PROTEIN TRACE Normal NEGATIVE/ TRACE [facility] Comment on above: Performed By: #### B MP, LIPA, YVETTE, LIVER #### [facility] [address] [place] [address] Dr. Idania Roldan UR MICRO IND INDICATED Normal [facility] Comment on above: Performed By: #### B MP, LIPA, YVETTE, LIVER #### [facility] [address] [place] [address] Dr. Idania Roldan Urobilinogen Qn (U) 0.2 {Bryan'U}/dL Normal 0.2 - 1. 0 [facility] Comment on above: Performed By: #### B MP, LIPA, YVETTE, LIVER #### [facility] [address] [place] [address] Dr. Idania Roldan LIPASEon 01-25-2023 Lipase [Catalytic activity/Vol] 226.0 U/L Normal 73.0-393.0 [facility] Comment on above: Performed By: #### B MP, LIPA, YVETTE, LIVER #### [facility] [address] [address] [address] Idania Roldan LIVER PROFILEon 01-25-2023 Albumin [Mass/Vol] 4.1 g/dL Normal 3.4-5.0 [facility] Comment on above: Performed By: #### B MP, LIPA, YVETTE, LIVER #### [facility] [address] [address] [address] Idania Roldan Albumin/Globulin [Mass ratio] 0.9 {ratio} Normal [facility] Comment on above: Performed By: #### B MP, LIPA, YVETTE, LIVER #### [facility] [address] [address] [address] Idania Roldan ALP [Catalytic activity/Vol] 110 U/L Normal 46-116 [facility] Comment on above: Performed By: #### B MP, LIPA, YVETTE, LIVER #### [facility] [address] [address] [address] Idania Roldan ALT [Catalytic activity/Vol] 20 U/L Normal 14-59 [facility] Comment on above: Performed By: #### B MP, LIPA, YVETTE, LIVER #### [facility] [address] [address] [address] Idania Roldan AST [Catalytic activity/Vol] 11 U/L Critically low 15-37 [facility] Comment on above: Performed By: #### B MP, LIPA, YVETTE, LIVER #### [facility] [address] [address] [address] Idania Roldan BILI, CONJUGATED 0.1 mg/dL Normal 0.0-0.2 [facility] Comment on above: Performed By: #### B MP, LIPA, YVETTE, LIVER #### [facility] [address] [address] [address] Idania Roldan Bilirubin [Mass/Vol] 0.3 mg/dL Normal 0.2-1.0 [facility] Comment on above: Performed By: #### B MP, LIPA, YVETTE, LIVER #### [facility] [address] [place] [address] Dr. Idania Roldan Globulin (S) [Mass/Vol] 4.4 g/dL Normal [facility] Comment on above: Performed By: #### B MP, LIPA, YVETTE, LIVER #### [facility] [address] [place] [address] Dr. Idania Roldan Protein [Mass/Vol] 8.5 g/dL Critically high 6.4-8.2 [facility] Comment on above: Performed By: #### B MP, LIPA, YVETTE, LIVER #### [facility] [address] [place] [address] Dr. Idania Roldan PROF CHEM 8 (BAS METB)on Anion gap [Moles/Vol] 13.5 mmol/L Normal [facility] Comment on above: Performed By: #### B MP, LIPA, YVETTE, LIVER #### [facility] [address] [place] [address] Dr. Idania Roldan Calcium [Mass/Vol] 9.3 mg/dL Normal 8.5-10.1 [facility] Comment on above: Performed By: #### B MP, LIPA, YVETTE, LIVER #### [facility] [address] [place] [address] Dr. Idania Roldan Chloride [Moles/Vol] 105 mmol/L Normal 98-107 [facility] Comment on above: Performed By: #### B MP, LIPA, YVETTE, LIVER #### [facility] [address] [place] [address] Dr. Idania Roldan CO2 [Moles/Vol] 27.2 mmol/L Normal 21.0-32.0 [facility] Comment on above: Performed By: #### B MP, LIPA, YVETTE, LIVER #### [facility] [address] [place] [address] Dr. Idania Roldan Creatinine [Mass/Vol] 0.74 mg/dL Normal 0.55-1.02 [facility] Comment on above: Performed By: #### B MP, LIPA, YVETTE, LIVER #### [facility] [address] [place] [address] Dr. Idania Roldan EGFR-AF NIGERIEN >60 Normal >=60 [facility] Comment on above: Performed By: #### B MP, LIPA, YVETTE, LIVER #### [facility] [address] [address] [address] Idania Roldan EGFR-NON AF NIGERIEN >60 Normal >=60 [facility] Comment on above: Performed By: #### B MP, LIPA, YVETTE, LIVER #### [facility] [address] [place] [address] Dr. Idania Roldan Glucose [Mass/Vol] 97 mg/dL Normal 74-106 [facility] Comment on above: Performed By: #### B MP, LIPA, YVETTE, LIVER #### [facility] [address] [place] [address] Dr. Idania Roldan Potassium [Moles/Vol] 3.7 mmol/L Normal 3.5-5.1 [facility] Comment on above: Performed By: #### B MP, LIPA, YVETTE, LIVER #### [facility] [address] [place] [address] Dr. Idania Roldan Sodium [Moles/Vol] 142 mmol/L Normal 136-145 [facility] Comment on above: Performed By: #### B MP, LIPA, YVETTE, LIVER #### [facility] [address] [place] [address] Dr. Idania Roldan Urea nitrogen [Mass/Vol] 13.0 mg/dL Normal 7.0-18.0 [facility] Comment on above: Performed By: #### B MP, LIPA, YVETTE, LIVER #### [facility] [address] [place] [address] Dr. Idania Roldan Urea nitrogen/Creatinine [Mass ratio] 17.6 mg/mg Normal [facility] Comment on above: Performed By: #### B MP, LIPA, YVETTE, LIVER #### [facility] [address] [place], [place] [id number] Dr. Idania Roldan URINE MICROSCOPIC ONLYon BACTERIA NONE SEEN Normal NONE SEEN [facility] Comment on above: Performed By: #### B MP, LIPA, YVETTE, LIVER #### [facility] [address] [place] [address] Dr. Idania Roldan Bacteria identified Cx Nom (U) NOT INDICATED Normal [facility] Comment on above: Performed By: #### B MP, LIPA, YVETTE, LIVER #### [facility] [address] [place] [address] Dr. Idania Roldan CAST NONE SEEN Normal NONE SEEN [facility] Comment on above: Performed By: #### B MP, LIPA, YVETTE, LIVER #### [facility] [address] [place] [address] Dr. Idania Roldan Crystals LM Nom (Urine sed) NONE SEEN Normal NONE SEEN [facility] Comment on above: Performed By: #### B MP, LIPA, YVETTE, LIVER #### [facility] [address] [place] [address] Dr. Idania Roldan Epithelial cells LM Ql (Urine sed) FEW Abnormal NONE SEEN /RARE [facility] Comment on above: Performed By: #### B MP, LIPA, YVETTE, LIVER #### [facility] [address] [place] [address] Dr. Idania Roldan MUCOUS NONE SEEN Normal NONE SEEN [facility] Comment on above: Performed By: #### B MP, LIPA, YVETTE, LIVER #### [facility] [address] [place] [address] Dr. Idania Roldan RBC (U) [#/Vol] /uL Abnormal 0-2 [facility] Comment on above: Performed By: #### B MP, LIPA, YVETTE, LIVER #### [facility] [address] [place] [address] Dr. Idania Roldan WBC NONE SEEN Normal NONE SEEN [facility] Comment on above: Performed By: #### B MP, LIPA, YVETTE, LIVER #### [facility] [address] [place] [address] Dr. Idania Roldan XR KUB 1 VIEWon [...] DENILSON AUSTIN Date: 2023-01-24 19:51 Normal [facility] AMYLASEon 01-21-2023 Amylase [Catalytic activity/Vol] 64 U/L Normal 25-115 [facility] Comment on above: Performed By: #### P T, PTT #### [facility] [address] [place] [address] Dr. Idania Roldan CBC AUTO DIFFon 01-21-2023 BASO # 0.0 103/ul Normal 0.0-0.1 [facility] Comment on above: Performed By: #### B MP, LIPA, YVETTE, LIVER #### [facility] [address] [place] [address] Dr. Idania Roldan Basophils/100 WBC (Bld) 0.2 % Normal 0.2-2.0 [facility] Comment on above: Performed By: #### B MP, LIPA, YVETTE, LIVER #### [facility] [address] [place] [address] Dr. Idania Roldan EO # 0.1 103/ul Normal 0.0-0.7 [facility] Comment on above: Performed By: #### B MP, LIPA, YVETTE, LIVER #### [facility] [address] [place] [address] Dr. Idania Roldan Eosinophils/100 WBC (Bld) 0.9 % Normal 0.9-7.0 [facility] Comment on above: Performed By: #### B MP, LIPA, YVETTE, LIVER #### [facility] [address] [place] [address] Dr. Idanai Roldan Erythrocyte distribution width (RBC) [Ratio] 17.2 % Critically high 11.0-15.0 [facility] Comment on above: Performed By: #### B MP, LIPA, YVETTE, LIVER #### [facility] [address] [place] [address] Dr. Idania Roldan Hematocrit (Bld) [Volume fraction] 32.5 % Critically low 36.0-48.0 [facility] Comment on above: Performed By: #### B MP, LIPA, YVETTE, LIVER #### [facility] [address] [place] [address] Dr. Idania Roldan Hemoglobin (Bld) [Mass/Vol] 9.5 g/dL Critically low 12.0-16.0 [facility] Comment on above: Performed By: #### B MP, LIPA, YVETTE, LIVER #### [facility] [address] [place] [address] Dr. Idania Roldan IG # 0.01 10e3/ul Normal 0.00-0.03 [facility] Comment on above: Performed By: #### B MP, LIPA, YVETTE, LIVER #### [facility] [address] [place] [address] Dr. Idania Roldan IG % 0.2 % Normal 0.0-0.5 [facility] Comment on above: Performed By: #### B MP, LIPA, YVETTE, LIVER #### [facility] [address] [place] [address] Dr. Idania Roldan LYMPH # 2.0 103/ul Normal 1.2-3.8 [facility] Comment on above: Performed By: #### B MP, LIPA, YVETTE, LIVER #### [facility] [address] [place] [address] Dr. Idania Roldan Lymphocytes/100 WBC (Bld) 34.7 % Normal 20.5-60.0 [facility] Comment on above: Performed By: #### B MP, LIPA, YVETTE, LIVER #### [facility] [address] [place] [address] Dr. Idania Roldan MANUAL DIFF REQ NO Normal [facility] Comment on above: Performed By: #### B MP, LIPA, YVETTE, LIVER #### [facility] [address] [place] [address] Dr. Idania Roldan MCH (RBC) [Entitic mass] 20.5 pg Critically low 26.7-34.0 [facility] Comment on above: Performed By: #### B MP, LIPA, YVETTE, LIVER #### [facility] [address] [place] [address] Dr. Idania Roldan MCHC (RBC) [Mass/Vol] 29.2 g/dL Critically low 29.9-35.2 [facility] Comment on above: Performed By: #### B MP, LIPA, YVETTE, LIVER #### [facility] [address] [place] [address] Dr. Idania Roldan MCV (RBC) [Entitic vol] 70.2 fL Critically low 81.0-99.0 [facility] Comment on above: Performed By: #### B MP, LIPA, YVETTE, LIVER #### [facility] [address] [place] [address] Dr. Idania Roldan MONO # 0.5 103/ul Normal 0.3-0.8 [facility] Comment on above: Performed By: #### B MP, LIPA, YVETTE, LIVER #### [facility] [address] [place] [address] Dr. Idania Roldan Monocytes/100 WBC (Bld) 8.7 % Normal 1.7-12.0 [facility] Comment on above: Performed By: #### B MP, LIPA, YVETTE, LIVER #### [facility] [address] [place] [address] Dr. Idania Roldan NEUT # 3.2 103/ul Normal 1.4-6.5 [facility] Comment on above: Performed By: #### B MP, LIPA, YVETTE, LIVER #### [facility] [address] [place] [address] Dr. Idania Roldan Neutrophils/100 WBC (Bld) 55.3 % Normal 43.0-75.0 [facility] Comment on above: Performed By: #### B MP, LIPA, YVETTE, LIVER #### [facility] [address] [place] [address] Dr. Idania Roldan Platelet mean volume (Bld) [Entitic vol] 9.7 fL Normal 9.5-13.5 [facility] Comment on above: Performed By: #### B MP, LIPA, YVETTE, LIVER #### [facility] [address] [place] [address] Dr. Idania Roldan PLT 310 103/ul Normal 150-450 [facility] Comment on above: Performed By: #### B MP, LIPA, YVETTE, LIVER #### [facility] [address] [place] [address] Dr. Idania Roldan RBC 4.63 106/ul Normal 4.20-5.40 [facility] Comment on above: Performed By: #### B MP, LIPA, YVETTE, LIVER #### [facility] [address] [place] [address] Dr. Idania Roldan WBC 5.8 103/ul Normal 4.0-11.0 [facility] Comment on above: Performed By: #### B MP, LIPA, YVETTE, LIVER #### [facility] [address] [place] [address] Dr. Idania Roldan CULTURE URINEon 01-21-2023 CULTURE URINE Culture Observations : MODERATE GROWTH OF MIXED GENITAL ALE. NO POTENTIAL PATHOGENS SEEN. Normal [facility] Comment on above: Performed By: #### P T, PTT #### [facility] [address] [place] [address] Dr. Idania Roldan LIPASEon 01-21-2023 Lipase [Catalytic activity/Vol] 251.0 U/L Normal 73.0-393.0 [facility] Comment on above: Performed By: #### P T, PTT #### [facility] [address] [place] [address] Dr. Idania Roldan PROF 14(COMP METB)on 023 Albumin [Mass/Vol] 3.8 g/dL Normal 3.4-5.0 [facility] Comment on above: Performed By: #### P T, PTT #### [facility] [address] [address] [address] Idania Roldan Albumin/Globulin [Mass ratio] 1.0 {ratio} Normal [facility] Comment on above: Performed By: #### P T, PTT #### [facility] [address] [address] [address] Idania Roldan ALP [Catalytic activity/Vol] 107 U/L Normal 46-116 [facility] Comment on above: Performed By: #### P T, PTT #### [facility] [address] [address] [address] Idania Roldan ALT [Catalytic activity/Vol] 17 U/L Normal 14-59 [facility] Comment on above: Performed By: #### P T, PTT #### [facility] [address] [place] [address] Dr. Idania Roldan Anion gap [Moles/Vol] 13.3 mmol/L Normal [facility] Comment on above: Performed By: #### P T, PTT #### [facility] [address] [place] [address] Dr. Idania Roldan AST [Catalytic activity/Vol] 9 U/L Critically low 15-37 [facility] Comment on above: Performed By: #### P T, PTT #### [facility] [address] [place] [address] Dr. Idania Roldan Bilirubin [Mass/Vol] 0.3 mg/dL Normal 0.2-1.0 [facility] Comment on above: Performed By: #### P T, PTT #### [facility] [address] [address] [address] Idania Roldan Calcium [Mass/Vol] 9.0 mg/dL Normal 8.5-10.1 [facility] Comment on above: Performed By: #### P T, PTT #### [facility] [address] [address] [address] Idania Roldan Chloride [Moles/Vol] 103 mmol/L Normal 98-107 [facility] Comment on above: Performed By: #### P T, PTT #### [facility] [address] [address] [address] Idania Roldan CO2 [Moles/Vol] 28.2 mmol/L Normal 21.0-32.0 [facility] Comment on above: Performed By: #### P T, PTT #### [facility] [address] [place] [address] Dr. Idania Roldan Creatinine [Mass/Vol] 0.81 mg/dL Normal 0.55-1.02 [facility] Comment on above: Performed By: #### P T, PTT #### [facility] [address] [place] [address] Dr. Idania Roldan EGFR-AF NIGERIEN >60 Normal >=60 [facility] Comment on above: Performed By: #### P T, PTT #### [facility] [address] [place] [address] Dr. Idania Roldan EGFR-NON AF NIGERIEN >60 Normal >=60 [facility] Comment on above: Performed By: #### P T, PTT #### [facility] [address] [place] [address] Dr. Idania Roldan Globulin (S) [Mass/Vol] 3.9 g/dL Normal [facility] Comment on above: Performed By: #### P T, PTT #### [facility] [address] [place] [address] Dr. Idania Roldan Glucose [Mass/Vol] 93 mg/dL Normal 74-106 [facility] Comment on above: Performed By: #### P T, PTT #### [facility] [address] [place] [address] Dr. Idania Roldan Potassium [Moles/Vol] 3.5 mmol/L Normal 3.5-5.1 [facility] Comment on above: Performed By: #### P T, PTT #### [facility] [address] [place] [address] Dr. Idania Roldan Protein [Mass/Vol] 7.7 g/dL Normal 6.4-8.2 [facility] Comment on above: Performed By: #### P T, PTT #### [facility] [address] [address] [address] Idania Roldan Sodium [Moles/Vol] 141 mmol/L Normal 136-145 [facility] Comment on above: Performed By: #### P T, PTT #### [facility] [address] [address] [address] Idania Roldan Urea nitrogen [Mass/Vol] 11.0 mg/dL Normal 7.0-18.0 [facility] Comment on above: Performed By: #### P T, PTT #### [facility] [address] [address] [address] Idania Roldan Urea nitrogen/Creatinine [Mass ratio] 13.6 mg/mg Normal [facility] Comment on above: Performed By: #### P T, PTT #### [facility] [address] [place] [address] Dr. Idania Roldan UA RANDOM W/MICROSCOPICon BACTERIA SMALL Abnormal NONE SEEN [facility] Comment on above: Performed By: #### B MP, LIPA, YVETTE, LIVER #### [facility] [address] [place] [address] Dr. Idania Roldan Bilirubin Ql (U) SMALL Abnormal NEGATIVE [facility] Comment on above: Performed By: #### B MP, LIPA, YVETTE, LIVER #### [facility] [address] [place] [address] Dr. Idania Roldan CAST NONE SEEN Normal NONE SEEN [facility] Comment on above: Performed By: #### B MP, LIPA, YVETTE, LIVER #### [facility] [address] [place] [address] Dr. Idania Roldan Clarity (U) CLEAR Normal CLEAR [facility] Comment on above: Performed By: #### B MP, LIPA, YVETTE, LIVER #### [facility] [address] [place] [address] Dr. Idania Roldan Color (U) DK. YELLOW Normal YELLOW [facility] Comment on above: Performed By: #### B MP, LIPA, YVETTE, LIVER #### [facility] [address] [place] [address] Dr. Idania Roldan Crystals LM Nom (Urine sed) NONE SEEN Normal NONE SEEN [facility] Comment on above: Performed By: #### B MP, LIPA, YVETTE, LIVER #### [facility] [address] [address] [address] Idania Roldan Epithelial cells LM Ql (Urine sed) FEW Abnormal NONE SEEN /RARE [facility] Comment on above: Performed By: #### B MP, LIPA, YVETTE, LIVER #### [facility] [address] [address] [address] Idania Roldan Glucose Ql (U) Negative Normal NEGATIVE [facility] Comment on above: Performed By: #### B MP, LIPA, YVETTE, LIVER #### [facility] [address] [place] [address] Dr. Idania Roldan Hemoglobin Ql (U) LARGE Abnormal NEGATIVE [facility] Comment on above: Performed By: #### B MP, LIPA, YVETTE, LIVER #### [facility] [address] [place] [address] Dr. Idania Roldan Ketones Ql (U) TRACE Abnormal NEGATIVE [facility] Comment on above: Performed By: #### B MP, LIPA, YVETTE, LIVER #### [facility] [address] [place] [address] Dr. Idania Roldan LEUKOCYTES Negative Normal NEGATIVE [facility] Comment on above: Performed By: #### B MP, LIPA, YVETTE, LIVER #### [facility] [address] [place] [address] Dr. Idania Roldan MUCOUS MODERATE Abnormal NONE SEEN [facility] Comment on above: Performed By: #### B MP, LIPA, YVETTE, LIVER #### [facility] [address] [place] [address] Dr. Idania Roldan Nitrite Ql (U) Negative Normal NEGATIVE [facility] Comment on above: Performed By: #### B MP, LIPA, YVETTE, LIVER #### [facility] [address] [place] [address] Dr. Idania Roldan pH (U) 5.0 [pH] Normal 5-9 [facility] Comment on above: Performed By: #### B MP, LIPA, YVETTE, LIVER #### [facility] [address] [address] [address] Idania Roldan RBC (U) [#/Vol] /uL Abnormal 0-2 [facility] Comment on above: Performed By: #### B MP, LIPA, YVETTE, LIVER #### [facility] [address] [address] [address] Idania Roldan SPEC GRAVITY >=1.030 Abnormal 1.005-<=1.02 5 [facility] Comment on above: Performed By: #### B MP, LIPA, YVETTE, LIVER #### [facility] [address] [address] [address] Idania Roldan UA PROTEIN TRACE Normal NEGATIVE/ TRACE [facility] Comment on above: Performed By: #### B MP, LIPA, YVETTE, LIVER #### [facility] [address] [address] [address] Idania Roldan Urobilinogen Qn (U) 0.2 {Bryan'U}/dL Normal 0.2 - 1. 0 [facility] Comment on above: Performed By: #### B MP, LIPA, YVETTE, LIVER #### [facility] [address] [address] [address] Idania Roldan WBC 0-2 Abnormal NONE SEEN [facility] Comment on above: Performed By: #### B MP, LIPA, YVETTE, LIVER #### [facility] [address] [address] [address] Idania Roldan Follow-Upon 01-08-2023 Follow-Up [id number] Madyson Moore 1980 F Date Provider Department Center 01/08/2023 Abby-RUKHSANA MILLER [facility] Family History Problem Relation Age of Onset Brain cancer Mother Breast cancer Sister Kidney cancer Maternal Grandmother Prostate cancer Paternal Grandfather Cancer Father Cancer Sister Family Status - Relation Status Age at Mother Sister Maternal Grandmother Paternal Grandfather Father Sister Level of Service:25334 MD OFFICE/OUTPATIENT ESTABLISHED LOW MDM 20-29 MIN Reason for Visit and Comments: Follow-up [550406] - Discuss SCS next steps Normal [facility] RAD - MISCon 01-05-2023 [facility] [id number] Normal [facility] Patient Educationon 01-05-20 Patient Education Urology Dietary Guidelines to Help [...] Rhubarb. ? Beets. ? Potato chips and [place] fries. ? Nuts. ? If you regularly take a diuretic medicine, make sure to eat at least 1?2 fruits or vegetables high in potassium each day. These include: ? Avocado. ? Banana. ? [place], prune, carrot, or tomato juice. ? Baked [...] Salad dr (more content not included)... Normal [facility] Orders Onlyon 01-01-2023 Orders Only [id number] Madyson Moore 1980 F Date Provider Department Center 01/01/2023 RUKHSANA ESPINOZA MP PAIN Medical [facility] Family History Problem Relation Age of Onset Brain cancer Mother Breast cancer Sister Kidney cancer Maternal Grandmother Prostate cancer Paternal Grandfather Cancer Father Cancer Sister Family Status - Relation Status Age at Mother Sister Maternal Grandmother Paternal Grandfather Father Sister [facility] Follow-Upon 12-24-2022 Follow-Up [id number] Madyson Moore 1980 F Date Provider Department Center 12/24/2022 ARJUN ROSE MP PAIN Medical [facility]avi Family History Problem Relation Age of Onset Brain cancer Mother Breast cancer Sister Kidney cancer Maternal Grandmother Prostate cancer Paternal Grandfather Cancer Father Cancer Sister Family Status - Relation Status Age at Mother Sister Maternal Grandmother Paternal Grandfather Father Sister Level of Service:42838 MD OFFICE/OUTPATIENT ESTABLISHED MOD MDM 30-39 MIN () Reason for Visit and Comments: Follow-up [362364] - S/P sympathetic nerve block it helped a couple of days brought pain level down a little before procedure pain was 7 after procedure pain was 5 or 6. The injection did help the pain for a couple days. Normal [facility] 36on 12-15-2022 36 ----- Message from Denisse Hayden MA sent at 12/15/2022 1:01 PM EST ----- Regarding: FW: Concerns ----- Message ----- From: Elvi Moore Sent: 12/15/2022 7:44 AM EST To: [facility] Pain Medicine Clinical Support Pool [...] my knee honestly I???m just miserable Normal [facility] Orders Onlyon 12-14-2022 Orders Only [id number] Madyson Moore ma 1980 F Date Provider Department Center 12/14/2022 170-RUKHSANA MILLER MP PAIN Medical [facility]avi Family History Problem Relation Age of Onset Brain cancer Mother Breast cancer Sister Kidney cancer Maternal Grandmother Prostate cancer Paternal Grandfather Cancer Father Cancer Sister Family Status - Relation Status Age at Mother Sister Maternal Grandmother Paternal Grandfather Father Sister Normal [facility] HPon 12-10-2022 H&P reviewed. The aditi marion was examined and there are no changes to the H&P. Normal [facility] HP This patient is a 41-year-old female presents [...] which was unremarkable. 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 Past History of Treatments: Patient has tried other professional care of: OPPT (last performed in 07/2022) Trialed medications: Ibuprofen Current Medications for Associated Pain: [place] 5/325, Amitriptyline 50 qhs Current Medications Procedures [...] the patient does (more content not included)... [facility] 12-01-2022 36 Sent to vasyl valle, Lorena [facility] 11-30-2022 36 Patient called the o ffice and stating that her medication [facility] When looking in the patients chart it did show that it was sent to the wrong pharmacy. I took that pharmacy out of the patients chart but she needs her medication refill sent to the right pharmacy. Please advise. Thank you. [facility] Telephoneon 11-30-2022 Telephone [id number] Madyson Moore anil 1980 Date Provider Department Center 11/30/2022 DENISSE PANIAGUA MP PAIN Medical [facility]avi Family History Problem Relation Age of Onset Brain cancer Mother Breast cancer Sister Kidney cancer Maternal Grandmother Prostate cancer Paternal Grandfather Cancer Father Cancer Sister Family Status - Relation Status Age at Mother Sister Maternal Grandmother Paternal Grandfather Father Sister [facility] Office Visiton 11-24-2022 Follow-up visit [id number] Modesto Moorenicole ma 1980 Provider Department Center 11/24/2022 ARJUN ROSE MP PAIN Medical [facility] Family History Problem Relation Age of Onset Brain cancer Mother Breast cancer Sister Kidney cancer Maternal Grandmother Prostate cancer Paternal Grandfather Cancer Father Cancer Sister Family Status - Relation Status Age at Mother Sister Maternal Grandmother Paternal Grandfather Father Sister Level of Service:30201 MD OFFICE/OUTPATIENT NEW MODERATE MDM 45-59 MINUTES (GC) Reason for Visit and Comments: Follow-up [613782] New Patient [632] - Knee pain, left s/p replacement May 2022 and November 01, [facility] 36on 11-23-2022 36 Keiry called patient and let her know that she has a pain management appointment for tomorrow at 8:15 am and if the pain is to bad she can go to the ER. [facility] Telephoneon 11-23-2022 Telephone [id number] TeresaMadyson ma 1980 Date Provider Department Center 11/23/2022 YASMANY AVALOS [...] tomorrow 11/24 at 810. Patient updated. Normal [facility] Follow-Upon 11-20-2022 Follow-Up [id number] Madyson Moore 1980 F Date Provider Department Center 11/20/2022 JORDEN DEWITT MP Family History Problem Relation Age of Onset Brain cancer Mother Breast cancer Sister Kidney cancer Maternal Grandmother Prostate cancer Paternal Grandfather Cancer Father Cancer Sister Family Status - Relation Status Age at Mother Sister Maternal Grandmother Paternal Grandfather Father Sister Level of Service:78170 MD OFFICE/OUTPATIENT ESTABLISHED LOW MDM 20-29 MIN Reason for Visit and Comments: Follow-up [800377] Pain [136] [facility] Telephoneon 11-13-2022 Telephone [id number] Madyson Moore 1980 Date Provider Department Center 11/13/2022 JORDEN DEWITT MP Family History Problem Relation Age of Onset Brain cancer Mother Breast cancer Sister Kidney cancer Maternal Grandmother Prostate cancer Paternal Grandfather Cancer Father Cancer Sister Family Status - Relation Status Age at Mother Sister Maternal Grandmother Paternal Grandfather Father Sister [facility] 36on 11-10-2022 36 Attempted to call patient. Left VM. Will attempt call again tomorrow. [facility] Orders Onlyon 11-10-2022 Orders Only [id number] Madyson Moore 1980 Date Provider Department Center 11/10/2022 YASMANY AVALOS MPRTTARIK Family History Problem Relation Age of Onset Brain cancer Mother Breast cancer Sister Kidney cancer Maternal Grandmother Prostate cancer Paternal Grandfather Cancer Father Cancer Sister Family Status - Relation Status Age at Mother Sister Maternal Grandmother Paternal Grandfather Father Sister Normal [facility] Telephoneon 11-10-2022 Telephone [id number] Madyson Moore 1980 F Date Provider Department Center 11/10/[address] [facility] Family History Problem Relation Age of Onset [...] steps were. I spoke to Jorden Brody, SUPERVISOR OF RESEARCH he stated her results were negative and that he spoke to Dr Lane and the next step is to put in a referal for pain management and physical therapy. [facility] Orders Onlyon 11-05-2022 Orders Only [id number] Madyson Moore 1980 F Date Provider Department Center 11/05/2022 Tu-JORDEN BRODY MP [facility] Family History Problem Relation Age of Onset Brain cancer Mother Breast cancer Sister Kidney cancer Maternal Grandmother Prostate cancer Paternal Grandfather Cancer Father Cancer Sister Family Status - Relation Status Age at Mother Sister Maternal Grandmother Paternal Grandfather Father Sister Normal [facility] BODY FLUID CELL DIFFERENTIAL on 11-03-2022 BASOPHILS TOTAL PER COUNTED LEUKOCYTES IN BODY FLUID BY MANUAL COUNT [facility] Comment on above: Order Comment: Pleas e pull from previous right knee aspiration sample that was received on 11/03/22 Differential performed on cytospin Performed By: #### L [id number] #### [facility] [address] [place] [address] CELLS COUNTED TOTAL (#) IN BODY FLUID 100 Normal [facility] Comment on above: Order Comment: Pleas e pull from previous right knee aspiration sample that was received on 11/03/22 Differential performed on cytospin Performed By: #### L [id number] #### [facility] [address] [place] [address] EOSINOPHILS TOTAL PER COUNTED LEUKOCYTES IN BODY FLUID BY MANUAL COUNT 2 Normal [facility] Comment on above: Order Comment: Pleas e pull from previous right knee aspiration sample that was received on 11/03/22 Differential performed on cytospin Performed By: #### L [id number] #### [facility] [address] [place] [address] LYMPHOCYTES TOTAL PER COUNTED LEUKOCYTES IN BODY FLUID BY MANUAL COUNT 36 [facility] Comment on above: Order Comment: Pleas e pull from previous right knee aspiration sample that was received on 11/03/22 Differential performed on cytospin Performed By: #### L [id number] #### [facility] [address] [place] [address] MESOTHELIAL CELLS TOTAL PER COUNTED LEUKOCYTES IN BODY FLUID BY MANUAL COUN [facility] Comment on above: Order Comment: Pleas e pull from previous right knee aspiration sample that was received on 11/03/22 Differential performed on cytospin Performed By: #### L [id number] #### [facility] [address] [place] [address] MONOCYTES+MACROPHAG ES TOTAL PER COUNTED LEUKOCYTES IN BODY FLUID BY MANUAL 7 [facility] Comment on above: Order Comment: Pleas e pull from previous right knee aspiration sample that was received on 11/03/22 Differential performed on cytospin Performed By: #### L [id number] #### [facility] [address] [place] [address] NEUTROPHILS TOTAL PER COUNTED LEUKOCYTES IN BODY FLUID BY MANUAL COUNT 55 [facility] Comment on above: Order Comment: Pleas e pull from previous right knee aspiration sample that was received on 11/03/22 Differential performed on cytospin Performed By: #### L [id number] #### [facility] [address] [place] [address] OTHER CELLS BODY FLUID (MANUAL) [facility] Comment on above: Order Comment: Pleas e pull from previous right knee aspiration sample that was received on 11/03/22 Differential performed on cytospin Performed By: #### L [id number] #### [facility] [address] [place] [address] BODY FLUID CULTUREon 023 Bacteria identified Cx Nom (Unsp spec) No growth at 5 days Normal [facility] Comment on above: Performed By: #### L [id number] #### [facility] ([facility]) [address] [place] [address] GRAM STAIN RESULT Abnormal [facility] Comment on above: Result Comment: Many Polymorphonuclear leukocytes No organisms seen Performed By: #### L [id number] #### [facility] ([facility]) [address] [place] [address] Follow-Upon 11-03-2022 Follow-Up [id number] Madyson Moore 1980 F Date Provider Department Center 11/03/2022 KEVIN ANGELES MP ORTHO MPORTHO Family History Problem Relation Age of Onset Brain cancer Mother Breast cancer Sister Kidney cancer Maternal Grandmother Prostate cancer Paternal Grandfather Cancer Father Cancer Sister Family Status - Relation Status Age at Mother Sister Maternal Grandmother Paternal Grandfather Father Sister Level of Service:12037 MD OFFICE/OUTPATIENT ESTABLISHED LOW MDM 20-29 MIN (25) Reason for Visit and Comments: Pain [136] Normal [facility] GLUCOSE, BODY FLUIDon 2022 GLUCOSE (MG/DL) IN BODY FLUID 59 mg/dL Normal [facility] Comment on above: Result Comment: The reference range and other method performance specifications have not been established for this test in fluids. the test result should be integrated into the clinical context for interpretation. Performed By: #### L [id number] #### [facility] ([facility]) [address] [place] [address] TYPE OF BODY FLUID Synovial Fluid Normal [facility] Comment on above: Performed By: #### L [id number] #### [facility] ([facility]) [address] [place] [address] PATHOLOGY REVIEWon PATHOLOGY REVIEW Electronically betty garcia by Juanita Porter MD on 11/09/22 at 12:05 PM. Normal [facility] Comment on above: Order Comment: Pleas e pull from previous right knee aspiration sample that was received on 11/03/22 Performed By: #### L [id number] ####[facility] ([facility])[address] [place] [address] 36on 10-30-2022 36 I would recommmedn i f pain is really bad to go to ER to discuss reaspirating the knee as we got no results from last one. If not I would like to bring her in on Wednesday or Wednesday with gehling to aspirate ourselves. Normal [facility] Reminderson 10-29-2022 Reminders - From: [...] [facility] 36on 10-21-2022 36 See note above Normal [facility] BASIC METABOLIC PANELon 10-11 Anion gap [Moles/Vol] 8 mmol/L Normal 7-20 [facility] Comment on above: Performed By: #### L [id number] #### [facility] ([facility]) [address] [place] [address] Calcium [Mass/Vol] 8.7 mg/dL Normal 8.6-10.3 [facility] Comment on above: Performed By: #### L [id number] #### [facility] ([facility]) [address] [place] [address] Chloride [Moles/Vol] 105 mmol/L Normal 98-107 [facility] Comment on above: Performed By: #### L [id number] #### [facility] ([facility]) [address] [place] [address] CO2 [Moles/Vol] 26 mmol/L Normal 21-31 [facility] Comment on above: Performed By: #### L [id number] #### [facility] ([facility]) [address] [place] [address] Creatinine [Mass/Vol] 0.63 mg/dL Normal 0.60-1.20 [facility] Comment on above: Performed By: #### L [id number] #### [facility] ([facility]) [address] [place] [address] GLOMERULAR FILTRATION RATE ML/MIN/1.73 SQ M.PREDICTED 112.6 mL/min/1.73m*2 Normal >60.0 [facility] Comment on above: Result Comment: The [facility]???s estimated glomerular filtration rate (eGFR) [...] Performed By: #### L [id number] #### [facility] ([facility]) [address] [place] [address] Glucose [Mass/Vol] 86 mg/dL Normal 70-100 [facility] Comment on above: Performed By: #### L [id number] #### [facility] ([facility]) [address] [place] [address] Potassium [Moles/Vol] 4.3 mmol/L Normal 3.5-5.1 [facility] Comment on above: Performed By: #### L [id number] #### [facility] ([facility]) [address] [place] [address] Sodium [Moles/Vol] 139 mmol/L Normal 136-145 [facility] Comment on above: Performed By: #### L [id number] #### [facility] ([facility]) [address] [place] [address] Urea nitrogen [Mass/Vol] 15 mg/dL Normal 7-25 [facility] Comment on above: Performed By: #### L [id number] #### [facility] ([facility]) [address] [place] [address] UREA NITROGEN/CREATININE (MASS RATIO) IN SER/PLAS 23.81 Normal [facility] Comment on above: Performed By: #### L [id number] #### [facility] ([facility]) [address] [place] [address] C-REACTIVE PROTEINon 023 C REACTIVE PROTEIN (MG/L) IN SER/PLAS 1.6 mg/L Normal 0.0-7.0 [facility] Comment on above: Performed By: #### L [id number] #### [facility] ([facility]) [address] [place] [address] CBC WITH AUTO DIFFERENTIALon 10-21-2022 Basophils (Bld) [#/Vol] 0.02 10*3/uL Normal 0.00-0.20 [facility] Comment on above: Performed By: #### L [id number] #### [facility] ([facility]) [address] [place] [address] Basophils/100 WBC (Bld) 0.3 % Normal 0.0-1.0 [facility] Comment on above: Performed By: #### L [id number] #### [facility] ([facility]) [address] [place] [address] Eosinophils (Bld) [#/Vol] 0.02 10*3/uL Normal 0.00-0.50 [facility] Comment on above: Performed By: #### L [id number] #### [facility] ([facility]) [address] [place] [address] Eosinophils/100 WBC (Bld) 0.3 % Normal 0.0-6.0 [facility] Comment on above: Performed By: #### L [id number] #### [facility] ([facility]) [address] [place] [address] Erythrocyte distribution width (RBC) [Ratio] 17.2 % High 11.5-15.0 [facility] Comment on above: Performed By: #### L [id number] #### [facility] ([facility]) [address] [place] [address] ERYTHROCYTE MEAN CORPUSCULAR HEMOGLOBIN CONCENTRATION (G/DL) BY AUTOMATED 29.3 g/dL Low 32.0-35.0 [facility] Comment on above: Performed By: #### L [id number] #### [facility] ([facility]) [address] [place] [address] Hematocrit (Bld) [Volume fraction] 29.7 % Low 36.0-48.0 [facility] Comment on above: Performed By: #### L [id number] #### [facility] ([facility]) [address] [place] [address] Hemoglobin (Bld) [Mass/Vol] 8.7 g/dL Low 12.0-15.0 [facility] Comment on above: Performed By: #### L [id number] #### [facility] ([facility]) [address] [place] [address] Immature granulocytes (Bld) [#/Vol] 0.02 10*3/uL Normal 0.00-0.20 [facility] Comment on above: Performed By: #### L [id number] #### [facility] ([facility]) [address] [place] [address] Immature granulocytes/100 WBC (Bld) 0.3 % Normal 0.0-1.0 [facility] Comment on above: Performed By: #### L [id number] #### [facility] ([facility]) [address] [address] Lymphocytes (Bld) [#/Vol] 2.29 10*3/uL Normal 1.20-4.00 [facility] Comment on above: Performed By: #### L [id number] #### [facility]) [address] [place] [address] Lymphocytes/100 WBC (Bld) 31.8 % Normal 20.0-45.0 [facility] Comment on above: Performed By: #### L [id number] #### [facility]) [address] [place] [address] MCH (RBC) [Entitic mass] 22.3 pg Low 27.0-33.0 [facility] Comment on above: Performed By: #### L [id number] #### [facility]) [address] [place] [address] MCV (RBC) [Entitic vol] 76.2 fL Low 82.0-98.0 [facility] Comment on above: Performed By: #### L [id number] #### [facility] ([facility]) [address] [place] [address] Monocytes (Bld) [#/Vol] 0.53 10*3/uL Normal 0.10-1.00 [facility] Comment on above: Performed By: #### L [id number] #### [facility]) [address] [place] [address] Monocytes/100 WBC (Bld) 7.4 % Normal 5.0-12.0 [facility] Comment on above: Performed By: #### L [id number] #### [facility]) [address] [place] [address] Neutrophils (Bld) [#/Vol] 4.31 10*3/uL Normal 1.60-7.60 [facility] Comment on above: Performed By: #### L [id number] #### [facility]) [address] [place] [address] Neutrophils/100 WBC (Bld) 59.9 % Normal 40.0-72.0 [facility] Comment on above: Performed By: #### L [id number] #### [facility] ([facility]) [address] [place] [address] NRBC (PER 100 WBCS) BY AUTOMATED COUNT 0.0 % Normal 0.0-0.0 [facility] Comment on above: Performed By: #### L [id number] #### [facility] ([facility]) [address] [place] [address] PLATELETS (10*3/UL) IN BLOOD AUTOMATED COUNT 243 10*3/uL Normal 150-400 [facility] Comment on above: Performed By: #### L [id number] #### [facility] ([facility]) [address] [place] [address] RBC (Bld) [#/Vol] 3.90 10*6/uL Normal 3.80-5.00 [facility] Comment on above: Performed By: #### L [id number] #### [facility] ([facility]) [address] [place] [address] WBC (Bld) [#/Vol] 7.19 10*3/uL Normal 4.00-10.60 [facility] Comment on above: Performed By: #### L [id number] #### [facility] ([facility]) [address] [place] [address] CONSULTon 10-21-2022 CONSULT ----- ----- Attestation signed by Nain Steele MD at 10/22/2022 9:53 AM Patient discussed with me and I agree with the documentation. No evidence of infection with a negative aspiration and normal labs. Okay to follow-up with Dr. Lane as an outpatient. ----- ORTHOPEDIC SURGERY CONSULTATION CHIEF COMPLAINT: Knee Pain [...] mg) tablet, 300 mg., Disp: , Rfl: chlordiazepoxide-clidiniu m (Librax) 5-2.5 mg capsule, chlordiazepoxide-clidiniu m 5 mg-2.5 mg capsule, Disp: , Rfl: [...] Activity Al (more content not included)... Normal [facility] EDPROVon 10-21-2022 EDPROV [facility] [address] [facility] [address] EMERGENCY DEPARTMENT ENCOUNTER CHIEF COMPLAINT Chief Complaint [...] Resp: 18 ED Course as of 10/22/22 013WedOct 21, 2022 172 Patient discussed with orthopedic resident who will see and evaluate patient in the emergency room. [BH] 1746 orthopedic resident at bedside. States he will aspirate the knee. [] 1837 Received this pt in sign out from ADITI Min. Reports pt with knee pain with h/o TKA with revision in may [address] Reports ortho has evaluated the pt and aspirated the knee. Reports just w/f ortho dispo [JS] 2036 Spoke with lab regarding delay in aspiration results, oven laborer reports no sample was received in lab. Spoke with ortho resident who reports they were unable to aspirate any fluid from the knee (dry tap) and that the pt is ok for dc home to fu with Dr Lane outpt. Ortho reports they reviewed all results. No other recommendations per orthopedics. [JS] 2041 Pt was evaluated by marketing copywriter. Pt tearful. Pt reports she has had [...] Pascual [JS] ADITI White Diagnoses as of 10/22/22 0131 [...] Procedure Abnormality Status --------- ------ Body fluid culture[[id number]] Anaerobic culture[[id number]] Please view results for these tests on the individual orders. FUNGAL CULTURE BODY FLUID CULTURE ANAEROBIC CULTURE CBC AND DIFFERENTIAL Narrative: The following orders were created for panel order CBC and differential. Procedure Abnormality Status --------- ------ CBC auto differential[[id number]] Abnormal Final result Please view results for [...] Status --------- ------ Body fluid cell count wit...[[id number]] Please view results for these tests on the individual orders. GLUCOSE, BODY FLUID SYNOVIAL FLUID, CRYSTAL BODY FLUID CELL COUNT WITH DIFFERENTIAL CONSULTS: Orthopedics PROCEDURES: attempted left knee aspiration by orthopedics FINAL IMPRESSION 1. Left knee pain, unspecified chronicity PATIENT REFERRED TO: [facility] Orthopedics [phone] Schedule an appointment as soon as possible for a visit DISCHARGE MEDICATIONS: Discharge Medication List as of 10/21/2022 9:02 PM I have reviewed the disposition diagnosis with the patient and/or their family/guardian. I have answered their questions and given discharge instructions. They voiced understanding of these instructions and d (more content not included)... Normal [facility] EDPROV [facility] [address] [facility] [id number] EMERGENCY DEPARTMENT ENCOUNTER ED Room: CHIEF COMPLAINT [...] TABLET BY MOUTH TWICE DAILY, Historical Med chlordiazepoxide-clidiniu m (Librax) 5-2.5 mg capsule chlordiazepoxide-clidiniu m 5 mg-2.5 mg capsule, Historical Med cyclobenzaprine [...] [prochlorperazine], and (more content not included)... Normal [facility] SEDIMENTATION RATEon 023 SEDIMENTATION RATE, ERYTHROCYTE 34 mm/hr High <=20 [facility] Comment on above: Performed By: #### L [id number] #### [facility] [address] [place] [address] C-REACTIVE PROTEINon 023 C REACTIVE PROTEIN (MG/L) IN SER/PLAS 2.0 mg/L Normal 0.0-7.0 [facility] Comment on above: Performed By: #### L [id number] #### [facility] ([facility]) [address] [place] [address] Office Visiton 10-20-2022 Follow-up visit [id number] Madyson Moore ma 1980 F Date Provider Department Center 10/20/2022 JORDEN DEWITT MP ORTHO MPORTHO Family History Problem Relation Age of Onset Brain cancer Mother Breast cancer Sister Kidney cancer Maternal Grandmother Prostate cancer Paternal Grandfather Cancer Father Cancer Sister Family Status - Relation Status Age at Mother Sister Maternal Grandmother Paternal Grandfather Father Sister Level of Service:75152 MD OFFICE/OUTPATIENT ESTABLISHED LOW MDM 20-29 MIN Reason for Visit and Comments: Follow-up [750975] Normal [facility] SEDIMENTATION RATEon 023 SEDIMENTATION RATE, ERYTHROCYTE 25 mm/hr High <=20 [facility] Comment on above: Performed By: #### L [id number] #### [facility] ([employer]) [address] [place] [address] 36on 10-15-2022 36 Lets get appointment scheduled Normal [facility] C-REACTIVE PROTEINon 023 C REACTIVE PROTEIN (MG/L) IN SER/PLAS 1.4 mg/L Normal 0.0-7.0 [facility] Comment on above: Performed By: #### L [id number] #### [facility] ([facility]) [address] [place] [address] CONSULTon 10-13-2022 CONSULT ----- ----- Attestation signed by Sorin Shafer MD at 10/13/2022 9:58 PM I did not personally examine the patient. I discussed the case with the resident/fellow. Teaching Physician's Revisions: None ----- Reason For Consult knee pain Referring Provider: [...] Cancer Father Tye Shearn Cancer Sister [facility] Social History She reports that she [...] as well. She does specifically ask for [place] for pain and states she does not tolerate any NSAIDS. I am hesitant to prescribe, or advise ED providers to prescribe, any narcotics for pain control as review of OARRS demonstrates that patient gets narcotic pain medications quite frequently from different providers and prior orthopedic clinic notes specifi (more content not included)... Normal [facility] EDPROVon 10-13-2022 EDPROV HPI Chief [...] chills, body aches. History provided by: Patient De [place] Coma Scale Score: 15 Patient History Past [...] cancer Paternal Grandfather ??? Cancer Father Tye Mian ??? Cancer Sister La Nena Nichole Social History Tobacco Use ??? Smoking status: [...] MDM ED Course as of 10/13/22 1156 [facility] Oct 13, 2022 1044 Discussed case with [...] left knee Medical Decision Making Attestion Dusty Womack NP 10/13/22 0938 Normal [facility] SEDIMENTATION RATEon 023 SEDIMENTATION RATE, ERYTHROCYTE 9 mm/hr Normal <=20 [facility] Comment on above: Performed By: #### L [id number] #### [facility] ([facility]) [address] [place] [address] Covid-19 PCR ([facility])on 09-11 SARS-CoV-2 (COVID-19) RNA MAMIE+probe Ql (Unsp spec) Detected Critically abnormal NOT DETECTED [facility] Comment on above: Result Comment: This test is not yet approved or cleared by the [place] FDA. When there are no FDA-approved or cleared tests available, and other criteria are met, FDA can make tests available under an emergency access mechanism called an Emergency Use Authorization (EUA). The EUA for this test is supported by the Delivery Analyst of Health and Human Service's (HHS's) declaration [...] used). Performed By: #### C VDTBH #### [facility] [address] [place] [address] Dr. Idania Roldan INFLUENZA A AND B AGon 10-06 [facility] Normal [facility] Comment on above: Result Comment: Nega tive for Flu A protein angiten. Infection due to Flu A cannot be ruled out. Flu A angiten in the sample may be below the detection limit of the test. Performed By: #### P T, PTT #### [facility] [address] [place] [address] Dr. Idania Roldan INFLUBNEG SEE BELOW Normal [facility] Comment on above: Result Comment: Nega tive for Flu B protein antigen. Infection due to Flu B cannot be ruled out. Flu B antigen in the sample may be below the detection limit of the test. Performed By: #### P T, PTT #### [facility] [address] [place] [address] Dr. Idania Roldan INFLUENZA A AG Negative Normal NEGATIVE SEE COMMENT [facility] Comment on above: Performed By: #### P T, PTT #### [facility] [address] [place] [address] Dr. Idania Roldan INFLUENZA B AG Negative Normal NEGATIVE SEE COMMENT [facility] Comment on above: Performed By: #### P T, PTT #### [facility] [address] [place] [address] Dr. Idania Roldan INTERNAL CONTROLS Within Normal Limits Normal Wi thin Normal Limits [facility] Comment on above: Performed By: #### P T, PTT #### [facility] [address] [place] [address] Dr. Idania Roldan AMYLASEon 09-30-2022 Amylase [Catalytic activity/Vol] 62 U/L Normal 25-115 [facility] Comment on above: Performed By: #### B MP, LIPA, YVETTE, LIVER #### [facility] [address] [place] [address] Dr. Idania Roldan CBC AUTO DIFFon 09-30-2022 BASO # 0.0 103/ul Normal 0.0-0.1 [facility] Comment on above: Performed By: #### C BC #### [facility] [address] [place] [address] Dr. Idania Roldan Basophils/100 WBC (Bld) 0.3 % Normal 0.2-2.0 [facility] Comment on above: Performed By: #### C BC #### [facility] [address] [place] [address] Dr. Idania Roldan EO # 0.1 103/ul Normal 0.0-0.7 [facility] Comment on above: Performed By: #### C BC #### [facility] [address] [place] [address] Dr. Idania Roldan Eosinophils/100 WBC (Bld) 1.2 % Normal 0.9-7.0 [facility] Comment on above: Performed By: #### C BC #### [facility] [address] [place] [address] Dr. Idania Roldan Erythrocyte distribution width (RBC) [Ratio] 14.8 % Normal 11.0-15.0 [facility] Comment on above: Performed By: #### C BC #### [facility] [address] [place] [address] Dr. Idania Roldan Hematocrit (Bld) [Volume fraction] 31.8 % Critically low 36.0-48.0 [facility] Comment on above: Performed By: #### C BC #### [facility] [address] [place] [address] Dr. Idania Roldan Hemoglobin (Bld) [Mass/Vol] 9.6 g/dL Critically low 12.0-16.0 [facility] Comment on above: Performed By: #### C BC #### [facility] [address] [place] [address] Dr. Idania Roldan IG # 0.01 10e3/ul Normal 0.00-0.03 [facility] Comment on above: Performed By: #### C BC #### [facility] [address] [place] [address] Dr. Idania Roldan IG % 0.1 % Normal 0.0-0.5 [facility] Comment on above: Performed By: #### C BC #### [facility] [address] [place] [address] Dr. Idania Roldan LYMPH # 3.3 103/ul Normal 1.2-3.8 [facility] Comment on above: Performed By: #### C BC #### [facility] [address] [place] [address] Dr. Idania Roldan Lymphocytes/100 WBC (Bld) 45.4 % Normal 20.5-60.0 [facility] Comment on above: Performed By: #### C BC #### [facility] [address] [place] [address] Dr. Idania Roldan MANUAL DIFF REQ NO Normal [facility] Comment on above: Performed By: #### C BC #### [facility] [address] [place] [address] Dr. Idania Roldan MCH (RBC) [Entitic mass] 22.7 pg Critically low 26.7-34.0 [facility] Comment on above: Performed By: #### C BC #### [facility] [address] [address] [address] Idania Roldan MCHC (RBC) [Mass/Vol] 30.2 g/dL Normal 29.9-35.2 [facility] Comment on above: Performed By: #### C BC #### [facility] [address] [place] [address] Dr. Idania Roldan MCV (RBC) [Entitic vol] 75.4 fL Critically low 81.0-99.0 [facility] Comment on above: Performed By: #### C BC #### [facility] [address] [place] [address] Dr. Idania Roldan MONO # 0.5 103/ul Normal 0.3-0.8 [facility] Comment on above: Performed By: #### C BC #### [facility] [address] [place] [address] Dr. Idania Roldan Monocytes/100 WBC (Bld) 6.2 % Normal 1.7-12.0 [facility] Comment on above: Performed By: #### C BC #### [facility] [address] [place] [address] Dr. Idania Roldan NEUT # 3.4 103/ul Normal 1.4-6.5 [facility] Comment on above: Performed By: #### C BC #### [facility] [address] [place] [address] Dr. Idania Roldan Neutrophils/100 WBC (Bld) 46.8 % Normal 43.0-75.0 [facility] Comment on above: Performed By: #### C BC #### [facility] [address] [place] [address] Dr. Idania Roldan Platelet mean volume (Bld) [Entitic vol] 8.5 fL Critically low 9.5-13.5 [facility] Comment on above: Performed By: #### C BC #### [facility] [address] [place] [address] Dr. Idania Roldan PLT 273 103/ul Normal 150-450 [facility] Comment on above: Performed By: #### C BC #### [facility] [address] [place] [address] Dr. Idania Roldan RBC 4.22 106/ul Normal 4.20-5.40 [facility] Comment on above: Performed By: #### C BC #### [facility] [address] [place] [address] Dr. Idania Roldan WBC 7.2 103/ul Normal 4.0-11.0 [facility] Comment on above: Performed By: #### C BC #### [facility] [address] [place] [address] Dr. Idania Roldan CULTURE URINEon 09-30-2022 CULTURE URINE Culture Observations : MODERATE GROWTH OF MIXED GENITAL ALE. NO POTENTIAL PATHOGENS SEEN. Normal [facility] Comment on above: Performed By: #### P T, PTT #### [facility] [address] [place] [address] Dr. Idania Roldan LIPASEon 09-30-2022 Lipase [Catalytic activity/Vol] 256.0 U/L Normal 73.0-393.0 [facility] Comment on above: Performed By: #### B MP, LIPA, YVETTE, LIVER #### [facility] [address] [place] [address] Dr. Idania Roldan PROF 14(COMP METB)on 022 Albumin [Mass/Vol] 4.1 g/dL Normal 3.4-5.0 [facility] Comment on above: Performed By: #### B MP, LIPA, YVETTE, LIVER #### [facility] [address] [place] [address] Dr. Idania Roldan Albumin/Globulin [Mass ratio] 1.0 {ratio} Normal [facility] Comment on above: Performed By: #### B MP, LIPA, YVETTE, LIVER #### [facility] [address] [place] [address] Dr. Idania Roldan ALP [Catalytic activity/Vol] 93 U/L Normal 46-116 [facility] Comment on above: Performed By: #### B MP, LIPA, YVETTE, LIVER #### [facility] [address] [place] [address] Dr. Idania Roldan ALT [Catalytic activity/Vol] 13 U/L Critically low 14-59 [facility] Comment on above: Performed By: #### B MP, LIPA, YVETTE, LIVER #### [facility] [address] [address] [address] Idania Roldan Anion gap [Moles/Vol] 9.8 mmol/L Normal [facility] Comment on above: Performed By: #### B MP, LIPA, YVETTE, LIVER #### [facility] [address] [address] [address] Idania Roldan AST [Catalytic activity/Vol] 12 U/L Critically low 15-37 [facility] Comment on above: Performed By: #### B MP, LIPA, YVETTE, LIVER #### [facility] [address] [address] [address] Idania Roldan Bilirubin [Mass/Vol] 0.2 mg/dL Normal 0.2-1.0 [facility] Comment on above: Performed By: #### B MP, LIPA, YVETTE, LIVER #### [facility] [address] [address] [address] Idania Roldan Calcium [Mass/Vol] 9.2 mg/dL Normal 8.5-10.1 [facility] Comment on above: Performed By: #### B MP, LIPA, YVETTE, LIVER #### [facility] [address] [address] [address] Idania Roldan Chloride [Moles/Vol] 101 mmol/L Normal 98-107 [facility] Comment on above: Performed By: #### B MP, LIPA, YVETTE, LIVER #### [facility] [address] [address] [address] Idania Roldan CO2 [Moles/Vol] 31.8 mmol/L Normal 21.0-32.0 [facility] Comment on above: Performed By: #### B MP, LIPA, YVETTE, LIVER #### [facility] [address] [address] [address] Idania Roldan Creatinine [Mass/Vol] 0.71 mg/dL Normal 0.55-1.02 [facility] Comment on above: Performed By: #### B MP, LIPA, YVETTE, LIVER #### [facility] [address] [place] [address] Dr. Idania Roldan EGFR-AF NIGERIEN >60 Normal >=60 [facility] Comment on above: Performed By: #### B MP, LIPA, YVETTE, LIVER #### [facility] [address] [place] [address] Dr. Idania Roldan EGFR-NON AF NIGERIEN >60 Normal >=60 [facility] Comment on above: Performed By: #### B MP, LIPA, YVETTE, LIVER #### [facility] [address] [place] [address] Dr. Idania Roldan Globulin (S) [Mass/Vol] 4.0 g/dL Normal [facility] Comment on above: Performed By: #### B MP, LIPA, YVETTE, LIVER #### [facility] [address] [place] [address] Dr. Idania Roldan Glucose [Mass/Vol] 92 mg/dL Normal 74-106 [facility] Comment on above: Performed By: #### B MP, LIPA, YVETTE, LIVER #### [facility] [address] [place] [address] Dr. Idania Roldan Potassium [Moles/Vol] 3.6 mmol/L Normal 3.5-5.1 [facility] Comment on above: Performed By: #### B MP, LIPA, YVETTE, LIVER #### [facility] [address] [place] [address] Dr. Idania Roldan Protein [Mass/Vol] 8.1 g/dL Normal 6.4-8.2 [facility] Comment on above: Performed By: #### B MP, LIPA, YVETTE, LIVER #### [facility] [address] [place] [address] Dr. Idania Roldan Sodium [Moles/Vol] 139 mmol/L Normal 136-145 [facility] Comment on above: Performed By: #### B MP, LIPA, YVETTE, LIVER #### [facility] [address] [place] [address] Dr. Idania Roldan Urea nitrogen [Mass/Vol] 15.0 mg/dL Normal 7.0-18.0 [facility] Comment on above: Performed By: #### B MP, LIPA, YVETTE, LIVER #### [facility] [address] [place] [address] Dr. Idania Roldan Urea nitrogen/Creatinine [Mass ratio] 21.1 mg/mg Normal [facility] Comment on above: Performed By: #### B MP, LIPA, YVETTE, LIVER #### [facility] [address] [place] [address] Dr. Idania Roldan UA RANDOM W/MICROSCOPICon BACTERIA SMALL Abnormal NONE SEEN [facility] Comment on above: Performed By: #### B MP, LIPA, YVETTE, LIVER #### [facility] [address] [place] [address] Dr. Idania Roldan Bilirubin Ql (U) Negative Normal NEGATIVE [facility] Comment on above: Performed By: #### B MP, LIPA, YVETTE, LIVER #### [facility] [address] [place] [address] Dr. Idania oRldan CAST NONE SEEN Normal NONE SEEN [facility] Comment on above: Performed By: #### B MP, LIPA, YVETTE, LIVER #### [facility] [address] [place] [address] Dr. Idania Roldan Clarity (U) CLEAR Normal CLEAR [facility] Comment on above: Performed By: #### B MP, LIPA, YVETTE, LIVER #### [facility] [address] [place] [address] Dr. Idania Roldan Color (U) YELLOW Normal YELLOW [facility] Comment on above: Performed By: #### B MP, LIPA, YVETTE, LIVER #### [facility] [address] [place] [address] Dr. Idania Roldan Crystals LM Nom (Urine sed) NONE SEEN Normal NONE SEEN [facility] Comment on above: Performed By: #### B MP, LIPA, YVETTE, LIVER #### [facility] [address] [place] [address] Dr. Idania Roldan Epithelial cells LM Ql (Urine sed) FEW Abnormal NONE SEEN /RARE [facility] Comment on above: Performed By: #### B MP, LIPA, YVETTE, LIVER #### [facility] [address] [address] [address] Idania Roldan Glucose Ql (U) Negative Normal NEGATIVE [facility] Comment on above: Performed By: #### B MP, LIPA, YVETTE, LIVER #### [facility] [address] [address] [address] Idania Roldan Hemoglobin Ql (U) Negative Normal NEGATIVE [facility] Comment on above: Performed By: #### B MP, LIPA, YVETTE, LIVER #### [facility] [address] [address] [address] Idania Roldan Ketones Ql (U) Negative Normal NEGATIVE [facility] Comment on above: Performed By: #### B MP, LIPA, YVETTE, LIVER #### [facility] [address] [address] [address] Idania Roldan LEUKOCYTES SMALL Abnormal NEGATIVE [facility] Comment on above: Performed By: #### B MP, LIPA, YVETTE, LIVER #### [facility] [address] [place] [address] Dr. Idania Roldan MUCOUS TRACE Abnormal NONE SEEN [facility] Comment on above: Performed By: #### B MP, LIPA, YVETTE, LIVER #### [facility] [address] [address] [address] Idania Roldan Nitrite Ql (U) Negative Normal NEGATIVE [facility] Comment on above: Performed By: #### B MP, LIPA, YVETTE, LIVER #### [facility] [address] [address] [address] Idania Roldan pH (U) 7.0 [pH] Normal 5-9 [facility] Comment on above: Performed By: #### B MP, LIPA, YVETTE, LIVER #### [facility] [address] [place] [address] Dr. Idania Roldan RBC NONE SEEN Abnormal 0-2 [facility] Comment on above: Performed By: #### B MP, LIPA, YVETTE, LIVER #### [facility] [address] [address] [address] Idania Roldan SPEC GRAVITY 1.015 Normal 1.005-<=1.02 5 [facility] Comment on above: Performed By: #### B MP, LIPA, YVETTE, LIVER #### [facility] [address] [place] [address] Dr. Idania Roldan UA PROTEIN Negative Normal NEGATIVE/ TRACE [facility] Comment on above: Performed By: #### B MP, LIPA, YVETTE, LIVER #### [facility] [address] [address] [address] Idania Roldan Urobilinogen Qn (U) 0.2 {Bryan'U}/dL Normal 0.2 - 1. 0 [facility] Comment on above: Performed By: #### B MP, LIPA, YVETTE, LIVER #### [facility] [address] [place] [address] Dr. Idania Roldan WBC 5-10 Abnormal NONE SEEN [facility] Comment on above: Performed By: #### B MP, LIPA, YVETTE, LIVER #### [facility] [address] [address] [address] Idania [facility]old[facility] SARS-CoV-2 (COVID-19) RNA MAMIE+probe Ql (Unsp spec) Not detected Normal NOT DETECTED [facility] Comment on above: Result Comment: This test is not yet approved or cleared by the [place] FDA. When there are no FDA-approved or cleared tests available, and other criteria are met, FDA can make tests available under an emergency access mechanism called an Emergency Use Authorization (EUA). The EUA for this test is supported by the Delivery Analyst of Health and Human Service's (HHS's) declaration [...] consistent with SARS-CoV-2. Performed By: #### C VDTB #### [facility] [address] [place] [address] Dr. Idania Roldan INFLUENZA A AND B AGon 09-21 [facility] SEE BELOW Normal [facility] Comment on above: Result Comment: Nega tive for Flu A protein angiten. Infection due to Flu A cannot be ruled out. Flu A angiten in the sample may be below the detection limit of the test. Performed By: #### B MP, LIPA, YVETTE, LIVER #### [facility] [address] [place] [address] Dr. Id[facility] SEE BELOW Normal [facility] Comment on above: Result Comment: Nega tive for Flu B protein antigen. Infection due to Flu B cannot be ruled out. Flu B antigen in the sample may be below the detection limit of the test. Performed By: #### B MP, LIPA, YVETTE, LIVER #### [facility] [address] [place] [address] Dr. Idania Roldan INFLUENZA A AG Negative Normal NEGATIVE SEE COMMENT [facility] Comment on above: Performed By: #### B MP, LIPA, YVETTE, LIVER #### [facility] [address] [place] [address] Dr. Idania Roldan INFLUENZA B AG Negative Normal NEGATIVE SEE COMMENT [facility] Comment on above: Performed By: #### B MP, LIPA, YVETTE, LIVER #### [facility] [address] [place] [address] Dr. Idania Roldan INTERNAL CONTROLS Within Normal Limits Normal Wi thin Normal Limits [facility] Comment on above: Performed By: #### B MP, LIPA, YVETTE, LIVER #### [facility] [address] [place] [address] Dr. Idania Roldan Covid-19 PCR ([facility])on 08-11 SARS-CoV-2 (COVID-19) RNA MAMIE+probe Ql (Unsp spec) Not detected Normal NOT DETECTED [facility] Comment on above: Result Comment: This test is not yet approved or cleared by the [place] FDA. When there are no FDA-approved or cleared tests available, and other criteria are met, FDA can make tests available under an emergency access mechanism called an Emergency Use Authorization (EUA). The EUA for this test is supported by the [place] of Health and Human Service's (HHS's) declaration [...] #### B MP, LIPA, YVETTE, LIVER #### [facility] [address] [place] [address] Dr. Idania Roldan CBC AUTO DIFFon 08-21-2022 BASO # 0.0 103/ul Normal 0.0-0.1 [facility] Comment on above: Performed By: #### P T, PTT #### [facility] [address] [place] [address] Dr. Idania Roldan Basophils/100 WBC (Bld) 0.4 % Normal 0.2-2.0 [facility] Comment on above: Performed By: #### P T, PTT #### [facility] [address] [place] [address] Dr. Idania Roldan EO # 0.1 103/ul Normal 0.0-0.7 [facility] Comment on above: Performed By: #### P T, PTT #### [facility] [address] [place] [address] Dr. Idania Roldan Eosinophils/100 WBC (Bld) 1.3 % Normal 0.9-7.0 [facility] Comment on above: Performed By: #### P T, PTT #### [facility] [address] [place] [address] Dr. Idania Roldan Erythrocyte distribution width (RBC) [Ratio] 15.3 % Critically high 11.0-15.0 [facility] Comment on above: Performed By: #### P T, PTT #### [facility] [address] [place] [address] Dr. Idania Roldan Hematocrit (Bld) [Volume fraction] 32.1 % Critically low 36.0-48.0 [facility] Comment on above: Performed By: #### P T, PTT #### [facility] [address] [place] [address] Dr. Idania Roldan Hemoglobin (Bld) [Mass/Vol] 9.9 g/dL Critically low 12.0-16.0 [facility] Comment on above: Performed By: #### P T, PTT #### [facility] [address] [place] [address] Dr. Idania Roldan IG # 0.01 10e3/ul Normal 0.00-0.03 [facility] Comment on above: Performed By: #### P T, PTT #### [facility] [address] [place] [address] Dr. Idania Roldan IG % 0.1 % Normal 0.0-0.5 [facility] Comment on above: Performed By: #### P T, PTT #### [facility] [address] [place] [address] Dr. Idania Roldan LYMPH # 2.7 103/ul Normal 1.2-3.8 [facility] Comment on above: Performed By: #### P T, PTT #### [facility] [address] [place] [address] Dr. Idania Roldan Lymphocytes/100 WBC (Bld) 35.7 % Normal 20.5-60.0 [facility] Comment on above: Performed By: #### P T, PTT #### [facility] [address] [place] [address] Dr. Idania Roldan MANUAL DIFF REQ NO Normal [facility] Comment on above: Performed By: #### P T, PTT #### [facility] [address] [place] [address] Dr. Idania Roldan MCH (RBC) [Entitic mass] 24.8 pg Critically low 26.7-34.0 [facility] Comment on above: Performed By: #### P T, PTT #### [facility] [address] [place] [address] Dr. Idania Roldan MCHC (RBC) [Mass/Vol] 30.8 g/dL Normal 29.9-35.2 [facility] Comment on above: Performed By: #### P T, PTT #### [facility] [address] [place] [address] Dr. Idania Roldan MCV (RBC) [Entitic vol] 80.5 fL Critically low 81.0-99.0 [facility] Comment on above: Performed By: #### P T, PTT #### [facility] [address] [place] [address] Dr. Idania Roldan MONO # 0.5 103/ul Normal 0.3-0.8 [facility] Comment on above: Performed By: #### P T, PTT #### [facility] [address] [place] [address] Dr. Idania Roldan Monocytes/100 WBC (Bld) 6.1 % Normal 1.7-12.0 [facility] Comment on above: Performed By: #### P T, PTT #### [facility] [address] [place] [address] Dr. Idania Roldan NEUT # 4.2 103/ul Normal 1.4-6.5 [facility] Comment on above: Performed By: #### P T, PTT #### [facility] [address] [place] [address] Dr. Idania Roldan Neutrophils/100 WBC (Bld) 56.4 % Normal 43.0-75.0 [facility] Comment on above: Performed By: #### P T, PTT #### [facility] [address] [place] [address] Dr. Idania Roldan Platelet mean volume (Bld) [Entitic vol] 9.4 fL Critically low 9.5-13.5 [facility] Comment on above: Performed By: #### P T, PTT #### [facility] [address] [address] [address] Idania Roldan PLT 296 103/ul Normal 150-450 [facility] Comment on above: Performed By: #### P T, PTT #### [facility] [address] [address] [address] Idania Roldan RBC 3.99 106/ul Critically low 4.20-5.40 [facility] Comment on above: Performed By: #### P T, PTT #### [facility] [address] [address] [address] Idania Roldan WBC 7.5 103/ul Normal 4.0-11.0 [facility] Comment on above: Performed By: #### P T, PTT #### [facility] [address] [address] ABD/PELV W CONon [...] RUSSELL DUFF Date: 2022-08-21 12:35 Normal [facility] ER URINE PROFILEon 2 Bilirubin Ql (U) Unable to perform te sting due to color interference. Abnormal NEGATIVE [facility] Comment on above: Performed By: #### B MP, LIPA, YVETTE, LIVER #### [facility] [address] [address] [address] Idania Roldan Clarity (U) TURBID Abnormal CLEAR [facility] Comment on above: Performed By: #### B MP, LIPA, YVETTE, LIVER #### [facility] [address] [address] [address] Idania Roldan Color (U) RED Abnormal YELLOW [facility] Comment on above: Performed By: #### B MP, LIPA, YVETTE, LIVER #### [facility] [address] [address] [address] Idania Roldan ERUAHD A micrscopic examina tion will be performed if indicated. Normal [facility] Comment on above: Performed By: #### B MP, LIPA, YVETTE, LIVER #### [facility] [address] [address] [address] Idania Roldan Glucose Ql (U) Unable to perform te sting due to color interference. Abnormal NEGATIVE [facility] Comment on above: Performed By: #### B MP, LIPA, YVETTE, LIVER #### [facility] [address] [address] [address] Idania Roldan Hemoglobin Ql (U) Unable to perform te sting due to color interference. Abnormal NEGATIVE [facility] Comment on above: Performed By: #### B MP, LIPA, YVETTE, LIVER #### [facility] [address] [address] [address] Idania Roldan Ketones Ql (U) Unable to perform te sting due to color interference. Abnormal NEGATIVE [facility] Comment on above: Performed By: #### B MP, LIPA, YVETTE, LIVER #### [facility] [address] [address] [address] Idania Roldan LEUKOCYTES Unable to perform te sting due to color interference. Abnormal NEGATIVE [facility] Comment on above: Performed By: #### B MP, LIPA, YVETTE, LIVER #### [facility] [address] [place] [address] Dr. Idania Roldan Nitrite Ql (U) Unable to perform te sting due to color interference. Abnormal NEGATIVE [facility] Comment on above: Performed By: #### B MP, LIPA, YVETTE, LIVER #### [facility] [address] [place] [address] Dr. Idania Roldan pH Unable to perform te sting due to color interference. Abnormal 5-9 [facility] Comment on above: Performed By: #### B MP, LIPA, YVETTE, LIVER #### [facility] [address] [place] [address] Dr. Idania Roldan SPEC GRAVITY 1.020 Normal 1.005-<=1.02 5 [facility] Comment on above: Performed By: #### B MP, LIPA, YVETTE, LIVER #### [facility] [address] [place] [address] Dr. Idania Roldan UA PROTEIN Unable to perform te sting due to color interference. Normal NEGATIVE/ TRACE [facility] Comment on above: Performed By: #### B MP, LIPA, YVETTE, LIVER #### [facility] [address] [place] [address] Dr. Idania Roldan UR MICRO IND INDICATED Normal [facility] Comment on above: Performed By: #### B MP, LIPA, YVETTE, LIVER #### [facility] [address] [place] [address] Dr. Idania Roldan UROBILINOGEN Unable to perform te sting due to color interference. Normal 0.2 - 1.0 [facility] Comment on above: Performed By: #### B MP, LIPA, YVETTE, LIVER #### [facility] [address] [place] [address] Dr. Idania Roldan PROF 14(COMP METB)on 11-11-2 022 Albumin [Mass/Vol] 4.2 g/dL Normal 3.4-5.0 [facility] Comment on above: Performed By: #### P T, PTT #### [facility] [address] [place] [address] Dr. Idania Roldan Albumin/Globulin [Mass ratio] 1.0 {ratio} Normal [facility] Comment on above: Performed By: #### P T, PTT #### [facility] [address] [address] [address] Idania Roldan ALP [Catalytic activity/Vol] 91 U/L Normal 46-116 [facility] Comment on above: Performed By: #### P T, PTT #### [facility] [address] [place] [address] Dr. Idania Roldan ALT [Catalytic activity/Vol] 15 U/L Normal 14-59 [facility] Comment on above: Performed By: #### P T, PTT #### [facility] [address] [place] [address] Dr. Idania Roldan Anion gap [Moles/Vol] 9.6 mmol/L Normal [facility] Comment on above: Performed By: #### P T, PTT #### [facility] [address] [place] [address] Dr. Idania Roldan AST [Catalytic activity/Vol] 14 U/L Critically low 15-37 [facility] Comment on above: Performed By: #### P T, PTT #### [facility] [address] [place] [address] Dr. Idania Roldan Bilirubin [Mass/Vol] 0.2 mg/dL Normal 0.2-1.0 [facility] Comment on above: Performed By: #### P T, PTT #### [facility] [address] [place] [address] Dr. Idania Roldan Calcium [Mass/Vol] 9.2 mg/dL Normal 8.5-10.1 [facility] Comment on above: Performed By: #### P T, PTT #### [facility] [address] [place] [address] Dr. Idania Roldan Chloride [Moles/Vol] 103 mmol/L Normal 98-107 [facility] Comment on above: Performed By: #### P T, PTT #### [facility] [address] [place] [address] Dr. Idania Roldan CO2 [Moles/Vol] 31.2 mmol/L Normal 21.0-32.0 [facility] Comment on above: Performed By: #### P T, PTT #### [facility] [address] [place] [address] Dr. Idania Roldan Creatinine [Mass/Vol] 0.76 mg/dL Normal 0.55-1.02 [facility] Comment on above: Performed By: #### P T, PTT #### [facility] [address] [place] [address] Dr. Idania Roldan EGFR-AF NIGERIEN >60 Normal >=60 [facility] Comment on above: Performed By: #### P T, PTT #### [facility] [address] [place] [address] Dr. Idania Roldan EGFR-NON AF NIGERIEN >60 Normal >=60 [facility] Comment on above: Performed By: #### P T, PTT #### [facility] [address] [place] [address] Dr. Idania Roldan Globulin (S) [Mass/Vol] 4.2 g/dL Normal [facility] Comment on above: Performed By: #### P T, PTT #### [facility] [address] [place] [address] Dr. Idania Roldan Glucose [Mass/Vol] 107 mg/dL Critically high 74-106 [facility] Comment on above: Performed By: #### P T, PTT #### [facility] [address] [place] [address] Dr. Idania Roldan Potassium [Moles/Vol] 3.8 mmol/L Normal 3.5-5.1 [facility] Comment on above: Performed By: #### P T, PTT #### [facility] [address] [place] [address] Dr. Idania Roldan Protein [Mass/Vol] 8.4 g/dL Critically high 6.4-8.2 [facility] Comment on above: Performed By: #### P T, PTT #### [facility] [address] [place] [address] Dr. Idania Roldan Sodium [Moles/Vol] 140 mmol/L Normal 136-145 [facility] Comment on above: Performed By: #### P T, PTT #### [facility] [address] [place] [address] Dr. Idania Roldan Urea nitrogen [Mass/Vol] 12.0 mg/dL Normal 7.0-18.0 [facility] Comment on above: Performed By: #### P T, PTT #### [facility] [address] [place] [address] Dr. Idania Roldan Urea nitrogen/Creatinine [Mass ratio] 15.8 mg/mg Normal [facility] Comment on above: Performed By: #### P T, PTT #### [facility] [address] [place] [address] Dr. Idania Roldan URINE MICROSCOPIC ONLYon BACTERIA NONE SEEN Normal NONE SEEN [facility] Comment on above: Performed By: #### B MP, LIPA, YVETTE, LIVER #### [facility] [address] [place] [address] Dr. Idania Roldan Bacteria identified Cx Nom (U) NOT INDICATED Normal [facility] Comment on above: Performed By: #### B MP, LIPA, YVETTE, LIVER #### [facility] [address] [place] [address] Dr. Idania Roldan CAST NONE SEEN Normal NONE SEEN [facility] Comment on above: Performed By: #### B MP, LIPA, YVETTE, LIVER #### [facility] [address] [place] [address] Dr. Idania Roldan Crystals LM Nom (Urine sed) NONE SEEN Normal NONE SEEN [facility] Comment on above: Performed By: #### B MP, LIPA, YVETTE, LIVER #### [facility] [address] [place] [address] Dr. Idania Roldan Epithelial cells LM Ql (Urine sed) RARE Normal NONE SEEN /RARE [facility] Comment on above: Performed By: #### B MP, LIPA, YVETTE, LIVER #### [facility] [address] [place] [address] Dr. Idania Roldan MUCOUS NONE SEEN Normal NONE SEEN [facility] Comment on above: Performed By: #### B MP, LIPA, YVETTE, LIVER #### [facility] [address] [place] [address] Dr. Idania Roldan RBC (U) [#/Vol] /uL Abnormal 0-2 [facility] Comment on above: Performed By: #### B MP, LIPA, YVETTE, LIVER #### [facility] [address] [place] [address] Dr. Idania Roldan WBC 2-5 Abnormal NONE SEEN [facility] Comment on above: Performed By: #### B MP, LIPA, YVETTE, LIVER #### [facility] [address] [place] [address] Dr. Idania Roldan CBC AUTO DIFFon 08-19-2022 BASO # 0.0 103/ul Normal 0.0-0.1 [facility] Comment on above: Performed By: #### P T, PTT #### [facility] [address] [place] [address] Dr. Idania Roldan Basophils/100 WBC (Bld) 0.4 % Normal 0.2-2.0 [facility] Comment on above: Performed By: #### P T, PTT #### [facility] [address] [place] [address] Dr. Idania Roldan EO # 0.1 103/ul Normal 0.0-0.7 [facility] Comment on above: Performed By: #### P T, PTT #### [facility] [address] [place] [address] Dr. Idania Roldan Eosinophils/100 WBC (Bld) 2.0 % Normal 0.9-7.0 [facility] Comment on above: Performed By: #### P T, PTT #### [facility] [address] [place] [address] Dr. Idania Roldan Erythrocyte distribution width (RBC) [Ratio] 14.8 % Normal 11.0-15.0 [facility] Comment on above: Performed By: #### P T, PTT #### [facility] [address] [place] [address] Dr. Idania Roldan Hematocrit (Bld) [Volume fraction] 31.5 % Critically low 36.0-48.0 [facility] Comment on above: Performed By: #### P T, PTT #### [facility] [address] [place] [address] Dr. Idania Roldan Hemoglobin (Bld) [Mass/Vol] 9.5 g/dL Critically low 12.0-16.0 [facility] Comment on above: Performed By: #### P T, PTT #### [facility] [address] [place] [address] Dr. Idania Roldan IG # 0.01 10e3/ul Normal 0.00-0.03 [facility] Comment on above: Performed By: #### P T, PTT #### [facility] [address] [place] [address] Dr. Idania Roldan IG % 0.2 % Normal 0.0-0.5 [facility] Comment on above: Performed By: #### P T, PTT #### [facility] [address] [place] [address] Dr. Idania Roldan LYMPH # 1.4 103/ul Normal 1.2-3.8 [facility] Comment on above: Performed By: #### P T, PTT #### [facility] [address] [place] [address] Dr. Idania Roldan Lymphocytes/100 WBC (Bld) 29.9 % Normal 20.5-60.0 [facility] Comment on above: Performed By: #### P T, PTT #### [facility] [address] [place] [address] Dr. Idania Roldan MANUAL DIFF REQ NO Normal [facility] Comment on above: Performed By: #### P T, PTT #### [facility] [address] [place] [address] Dr. Idania Roldan MCH (RBC) [Entitic mass] 24.4 pg Critically low 26.7-34.0 [facility] Comment on above: Performed By: #### P T, PTT #### [facility] [address] [place] [address] Dr. Idania Roldan MCHC (RBC) [Mass/Vol] 30.2 g/dL Normal 29.9-35.2 [facility] Comment on above: Performed By: #### P T, PTT #### [facility] [address] [place] [address] Dr. Idania Roldan MCV (RBC) [Entitic vol] 80.8 fL Critically low 81.0-99.0 [facility] Comment on above: Performed By: #### P T, PTT #### [facility] [address] [place] [address] Dr. Idania Roldan MONO # 0.2 103/ul Critically low 0.3-0.8 [facility] Comment on above: Performed By: #### P T, PTT #### [facility] [address] [place] [address] Dr. Idania Roldan Monocytes/100 WBC (Bld) 5.2 % Normal 1.7-12.0 [facility] Comment on above: Performed By: #### P T, PTT #### [facility] [address] [place] [address] Dr. Idania Roldan NEUT # 2.9 103/ul Normal 1.4-6.5 [facility] Comment on above: Performed By: #### P T, PTT #### [facility] [address] [place] [address] Dr. Idania Roldan Neutrophils/100 WBC (Bld) 62.3 % Normal 43.0-75.0 [facility] Comment on above: Performed By: #### P T, PTT #### [facility] [address] [place] [address] Dr. Idania Rlodan Platelet mean volume (Bld) [Entitic vol] 8.6 fL Critically low 9.5-13.5 [facility] Comment on above: Performed By: #### P T, PTT #### [facility] [address] [address] [address] Idania Roldan PLT 269 103/ul Normal 150-450 [facility] Comment on above: Performed By: #### P T, PTT #### [facility] [address] [address] [address] Idania Roldan RBC 3.90 106/ul Critically low 4.20-5.40 [facility] Comment on above: Performed By: #### P T, PTT #### [facility] [address] [place] [address] Dr. Idania Roldan WBC 4.6 103/ul Normal 4.0-11.0 [facility] Comment on above: Performed By: #### P T, PTT #### [facility] [address] [place] [address] Dr. Idania Roldan PROF CHEM 8 (BAS METB)on Anion gap [Moles/Vol] 9.0 mmol/L Normal [facility] Comment on above: Performed By: #### B MP, LIPA, YVETTE, LIVER #### [facility] [address] [place] [address] Dr. Idania Roldan Calcium [Mass/Vol] 9.1 mg/dL Normal 8.5-10.1 [facility] Comment on above: Performed By: #### B MP, LIPA, YVETTE, LIVER #### [facility] [address] [place] [address] Dr. Idania Roldan Chloride [Moles/Vol] 104 mmol/L Normal 98-107 [facility] Comment on above: Performed By: #### B MP, LIPA, YVETTE, LIVER #### [facility] [address] [place] [address] Dr. Idania Roldan CO2 [Moles/Vol] 31.5 mmol/L Normal 21.0-32.0 [facility] Comment on above: Performed By: #### B MP, LIPA, YVETTE, LIVER #### [facility] [address] [place] [address] Dr. Idania Roldan Creatinine [Mass/Vol] 0.59 mg/dL Normal 0.55-1.02 [facility] Comment on above: Performed By: #### B MP, LIPA, YVETTE, LIVER #### [facility] [address] [place] [address] Dr. Idania Roldan EGFR-AF NIGERIEN >60 Normal >=60 [facility] Comment on above: Performed By: #### B MP, LIPA, YVETTE, LIVER #### [facility] [address] [place] [address] Dr. Idania Roldan EGFR-NON AF NIGERIEN >60 Normal >=60 [facility] Comment on above: Performed By: #### B MP, LIPA, YVETTE, LIVER #### [facility] [address] [place] [address] Dr. Idania Roldan Glucose [Mass/Vol] 90 mg/dL Normal 74-106 [facility] Comment on above: Performed By: #### B MP, LIPA, YVETTE, LIVER #### [facility] [address] [place] [address] Dr. Idania Roldan Potassium [Moles/Vol] 4.5 mmol/L Normal 3.5-5.1 [facility] Comment on above: Performed By: #### B MP, LIPA, YVETTE, LIVER #### [facility] [address] [place] [address] Dr. Idania Roldan Sodium [Moles/Vol] 140 mmol/L Normal 136-145 [facility] Comment on above: Performed By: #### B MP, LIPA, YVETTE, LIVER #### [facility] [address] [place] [address] Dr. Idania Roldan Urea nitrogen [Mass/Vol] 8.0 mg/dL Normal 7.0-18.0 [facility] Comment on above: Performed By: #### B MP, LIPA, YVETTE, LIVER #### [facility] [address] [place] [address] Dr. Idania Roldan Urea nitrogen/Creatinine [Mass ratio] 13.6 mg/mg Normal [facility] Comment on above: Performed By: #### B MP, LIPA, YVETTE, LIVER #### [facility] [address] [place] [address] Dr. Idania Roldan PROTIMEon 08-19-2022 INR Coag (PPP) [Relative time] 0.93 {INR} Normal [facility] Comment on above: Performed By: #### B MP, LIPA, YVETTE, LIVER #### [facility] [address] [address] [address] Idania Roldan INR GUIDELINES SEE BELOW Normal [facility] Comment on above: Result Comment: TARUN RED INR: 2.0 - 3.0 CONDITIONS NOT LISTED BELOW 2.5 - 3.5 FOR PROSTHETIC HEART VALVE REPLACEMENT 2.5 - 3.5 RECURRENT THROMBOSIS Performed By: #### B MP, LIPA, YVETTE, LIVER #### [facility] [address] [address] [address] Idania Roldan PT Coag (PPP) [Time] 10.1 s Normal 9.0-11.6 [facility] Comment on above: Performed By: #### B MP, LIPA, YVETTE, LIVER #### [facility] [address] [address] [address] Idania Roldan PTTon 08-19-2022 aPTT Coag (Bld) [Time] 28.1 s Normal 22.3-36.2 [facility] Comment on above: Performed By: #### B MP, LIPA, YVETTE, LIVER #### [facility] [address] [address] [address] Idania Rold[facility] SARS-CoV-2 (COVID-19) RNA MAMIE+probe Ql (Unsp spec) Not detected Normal NOT DETECTED [facility] Comment on above: Result Comment: This test is not yet approved or cleared by the [place] FDA. When there are no FDA-approved or cleared tests available, and other criteria are met, FDA can make tests available under an emergency access mechanism called an Emergency Use Authorization (EUA). The EUA for this test is supported by the Delivery Analyst of Health and Human Service's (HHS's) declaration [...] Performed By: #### P T, PTT #### [facility] [address] [place] [address] Dr. Idania Roldan CBC AUTO DIFFon 07-10-2022 BASO # 0.0 103/ul Normal 0.0-0.1 [facility] Comment on above: Performed By: #### P T, PTT #### [facility] [address] [place] [address] Dr. Idania Roldan Basophils/100 WBC (Bld) 0.2 % Normal 0.2-2.0 [facility] Comment on above: Performed By: #### P T, PTT #### [facility] [address] [place] [address] Dr. Idania Roldan EO # 0.1 103/ul Normal 0.0-0.7 [facility] Comment on above: Performed By: #### P T, PTT #### [facility] [address] [place] [address] Dr. Idania Roldan Eosinophils/100 WBC (Bld) 1.3 % Normal 0.9-7.0 [facility] Comment on above: Performed By: #### P T, PTT #### [facility] [address] [place] [address] Dr. Idania Roldan Erythrocyte distribution width (RBC) [Ratio] 16.4 % Critically high 11.0-15.0 [facility] Comment on above: Performed By: #### P T, PTT #### [facility] [address] [place] [address] Dr. Idania Roldan Hematocrit (Bld) [Volume fraction] 33.2 % Critically low 36.0-48.0 [facility] Comment on above: Performed By: #### P T, PTT #### [facility] [address] [place] [address] Dr. Idania Roldan Hemoglobin (Bld) [Mass/Vol] 10.3 g/dL Critically low 12.0-16.0 [facility] Comment on above: Performed By: #### P T, PTT #### [facility] [address] [place] [address] Dr. Idania Roldan IG # 0.01 10e3/ul Normal 0.00-0.03 [facility] Comment on above: Performed By: #### P T, PTT #### [facility] [address] [place] [address] Dr. Idania Roldan IG % 0.2 % Normal 0.0-0.5 [facility] Comment on above: Performed By: #### P T, PTT #### [facility] [address] [place] [address] Dr. Idania Roldan LYMPH # 1.8 103/ul Normal 1.2-3.8 [facility] Comment on above: Performed By: #### P T, PTT #### [facility] [address] [place] [address] Dr. Idania Roldan Lymphocytes/100 WBC (Bld) 38.8 % Normal 20.5-60.0 [facility] Comment on above: Performed By: #### P T, PTT #### [facility] [address] [place] [address] Dr. Idania Roldan MANUAL DIFF REQ NO Normal [facility] Comment on above: Performed By: #### P T, PTT #### [facility] [address] [place] [address] Dr. Idania Roldan MCH (RBC) [Entitic mass] 25.9 pg Critically low 26.7-34.0 [facility] Comment on above: Performed By: #### P T, PTT #### [facility] [address] [place] [address] Dr. Idania Roldan MCHC (RBC) [Mass/Vol] 31.0 g/dL Normal 29.9-35.2 [facility] Comment on above: Performed By: #### P T, PTT #### [facility] [address] [place] [address] Dr. Idania Roldan MCV (RBC) [Entitic vol] 83.4 fL Normal 81.0-99.0 [facility] Comment on above: Performed By: #### P T, PTT #### [facility] [address] [place] [address] Dr. Idania Roldan MONO # 0.3 103/ul Normal 0.3-0.8 [facility] Comment on above: Performed By: #### P T, PTT #### [facility] [address] [place] [address] Dr. Idania Roldan Monocytes/100 WBC (Bld) 6.1 % Normal 1.7-12.0 [facility] Comment on above: Performed By: #### P T, PTT #### [facility] [address] [place] [address] Dr. Idania Roldan NEUT # 2.5 103/ul Normal 1.4-6.5 [facility] Comment on above: Performed By: #### P T, PTT #### [facility] [address] [place] [address] Dr. Idania Roldan Neutrophils/100 WBC (Bld) 53.4 % Normal 43.0-75.0 [facility] Comment on above: Performed By: #### P T, PTT #### [facility] [address] [place] [address] Dr. Idania Roldan Platelet mean volume (Bld) [Entitic vol] 10.1 fL Normal 9.5-13.5 [facility] Comment on above: Performed By: #### P T, PTT #### [facility] [address] [place] [address] Dr. Idania Roldan PLT 239 103/ul Normal 150-450 [facility] Comment on above: Performed By: #### P T, PTT #### [facility] [address] [place] [address] Dr. Idania Roldan RBC 3.98 106/ul Critically low 4.20-5.40 [facility] Comment on above: Performed By: #### P T, PTT #### [facility] [address] [address] [address] Idania Roldan WBC 4.6 103/ul Normal 4.0-11.0 [facility] Comment on above: Performed By: #### P T, PTT #### [facility] [address] [address] [address] Idania Roldan PROF CHEM 8 (BAS METB)on Anion gap [Moles/Vol] 8.4 mmol/L Normal [facility] Comment on above: Performed By: #### B MP #### [facility] [address] [address] [address] Idania Roldan Calcium [Mass/Vol] 9.3 mg/dL Normal 8.5-10.1 [facility] Comment on above: Performed By: #### B MP #### [facility] [address] [address] [address] Idania Roldan Chloride [Moles/Vol] 103 mmol/L Normal 98-107 [facility] Comment on above: Performed By: #### B MP #### [facility] [address] [address] [address] Idania Roldan CO2 [Moles/Vol] 32.9 mmol/L Critically high 21.0-32.0 [facility] Comment on above: Performed By: #### B MP #### [facility] [address] [address] [address] Idania Roldan Creatinine [Mass/Vol] 0.70 mg/dL Normal 0.55-1.02 [facility] Comment on above: Performed By: #### B MP #### [facility] [address] [address] [address] Idania Roldan EGFR-AF NIGERIEN >60 Normal >=60 [facility] Comment on above: Performed By: #### B MP #### [facility] [address] [address] [address] Idania Roldan EGFR-NON AF NIGERIEN >60 Normal >=60 [facility] Comment on above: Performed By: #### B MP #### [facility] [address] [address] [address] Idania Roldan Glucose [Mass/Vol] 73 mg/dL Critically low 74-106 [facility] Comment on above: Performed By: #### B MP #### [facility] [address] [address] [address] Idania Roldan Potassium [Moles/Vol] 4.3 mmol/L Normal 3.5-5.1 [facility] Comment on above: Performed By: #### B MP #### [facility] [address] [address] [address] Idania Roldan Sodium [Moles/Vol] 140 mmol/L Normal 136-145 [facility] Comment on above: Performed By: #### B MP #### [facility] [address] [address] [address] Idania Rodlan Urea nitrogen [Mass/Vol] 16.0 mg/dL Normal 7.0-18.0 [facility] Comment on above: Performed By: #### B MP #### [facility] [address] [address] [address] Idania Roldan Urea nitrogen/Creatinine [Mass ratio] 22.9 mg/mg Normal [facility] Comment on above: Performed By: #### B MP #### [facility] [address] [address] [address] Idania Roldan PROTIMEon 07-10-2022 INR Coag (PPP) [Relative time] 1.00 {INR} Normal [facility] Comment on above: Performed By: #### P T, PTT #### [facility] [address] [address] [address] Idania Roldan INR GUIDELINES SEE BELOW Normal [facility] Comment on above: Result Comment: TARUN RED INR: 2.0 - 3.0 CONDITIONS NOT LISTED BELOW 2.5 - 3.5 FOR PROSTHETIC HEART VALVE REPLACEMENT 2.5 - 3.5 RECURRENT THROMBOSIS Performed By: #### P T, PTT #### [facility] [address] [address] [address] Idania Roldan PT Coag (PPP) [Time] 10.8 s Normal 9.0-11.6 [facility] Comment on above: Performed By: #### P T, PTT #### [facility] [address] [place], [place] [address] Dr. Idania Roldan PTTon 07-10-2022 aPTT Coag (Bld) [Time] 29.3 s Normal 22.3-36.2 [facility] Comment on above: Performed By: #### P T, PTT #### [facility] [address] [place], [place] [address] Dr. Idania Roldan Operative Reporton Operative Report MR#: [id number] I [facility] Pt. Name: Elvi Moore Room #: [id number] Discharge 06/01/2022 Date: Birthdate: 1980 OPERATIVE REPORT DATE OF SURGERY: 06/01/2022 SURGEON: Kevin Lane M.D. NETWORK [employer]PERATIONS LEAD: Duy Cavazos ANESTHESIA: General anesthesia. ESTIMATED BLOOD [...] arthrotomy was closed with soft #2 interrupted [id number] suture. The remainder of the incision closed in layered fashion. Sterile dressing applied. At the conclusion of the case, all sponge and needle counts correct. I was present for the critical portions of this case. Electronically Signed by: Kevin Lane M.D. 06/09/2022 07:[address] M.D. Date Dict: 06/03/2022/07:15 A/Kevin Lane M.D. Date Trans: 06/03/2022 08:09 A/moreliao [id number] cc: Arleth Acharya M.D. [address], [place] [address] Normal [facility] *ANAEROBIC CULTUREon 022 *ANAEROBIC CULTURE Clinical Report: (D) Specimen/Source: FLUID/INTRAOP SPEC Collected: 06/01/2022 14:08 Status: Final Last Updated: 06/06/2022 06:35 (1) 1. LEFT KNEE JOINT FLUID CULT RES (Final) No Anaerobes Isolated 5 Days Normal [facility] Comment on above: Order Comment: 1. LE FT KNEE JOINT FLUID Performed By: #### 3 0312 ####[facility] *ANAEROBIC CULTURE Clinical Report: (D) Specimen/Source: TISSUE/INTRAOP SPEC Collected: 06/01/2022 14:08 Status: Final Last Updated: 06/06/2022 06:35 (1) 2. LEFT KNEE MEDIAL SYNOVIUM CULT RES (Final) No Anaerobes Isolated 5 Days Normal [facility] Comment on above: Order Comment: 2. LE FT KNEE MEDIAL SYNOVIUM Performed By: #### 6 1405 #### [facility] [address] *ANAEROBIC CULTURE Clinical Report: (D) Specimen/Source: TISSUE/INTRAOP SPEC Collected: 06/01/2022 14:08 Status: Final Last Updated: 06/06/2022 06:35 (1) 3. LEFT KNEE LATERAL SYNOVIUM CULT RES (Final) No Anaerobes Isolated 5 Days Normal [facility] Comment on above: Order Comment: 3. LE FT KNEE LATERAL SYNOVIUM Performed By: #### 6 1405 #### [facility] [address] *BODY FLUID CULTUREon 2021 *BODY FLUID CULTURE Clinical Report: (D) Specimen/Source: FLUID/INTRAOP SPEC Collected: 06/01/2022 14:08 Status: Final Last Updated: 06/06/2022 06:39 (1) 1. LEFT KNEE JOINT FLUID GRAM (Final) Quantity Not Sufficient CULT RES (Final) No Growth Day 5 Normal [facility] Comment on above: Order Comment: 1. LE FT KNEE JOINT FLUID Performed By: #### 3 0318 ####[facility] *TISSUE CULTUREon 06-01-2022 *TISSUE CULTURE Clinical Report: (D) Specimen/Source: TISSUE/INTRAOP SPEC Collected: 06/01/2022 14:08 Status: Final Last Updated: 06/06/2022 06:40 (1) 2. LEFT KNEE MEDIAL SYNOVIUM GRAM (Final) Many Polys No Bacteria Seen CULT RES (Final) No Growth Day 5 Normal [facility] Comment on above: Order Comment: 2. LE FT KNEE MEDIAL SYNOVIUM Performed By: #### 3 0338 ####[facility] *TISSUE CULTURE Clinical Report: (D) Specimen/Source: TISSUE/INTRAOP SPEC Collected: 06/01/2022 14:08 Status: Final Last Updated: 06/06/2022 06:39 (1) 3. LEFT KNEE LATERAL SYNOVIUM GRAM (Final) Many Polys No Bacteria Seen CULT RES (Final) No Growth Day 5 Normal [facility] Comment on above: Order Comment: 3. LE FT KNEE LATERAL SYNOVIUM Performed By: #### 3 0338 ####[facility] POC GLUCOSE LABon 06-01-2022 Glucose [Mass/Vol] 86 mg/dL Normal 70-100 [facility] Comment on above: Performed By: #### 8 [id number] #### [address] [address], [facility] PORTABLE KNEE LEFT 2 VWSon 0 06-01-2022 PORTABLE KNEE LEFT 2 VWS [facility] Department of Radiology [address] [place] [address] [phone] Patient Name: ELVI MOORE : 1980 Sex: [...] planned Electronically signed: Yvette Andrade. Transcribed by: [email or web address], User Resident: Electronically Signed by: YVETTE ANDRADE @ 06/02/2022 08:53 AM Normal [facility] Comment on above: Order Comment: Hardw are Evaluation, in PACU *MRSA/MSSA DNA NASALon 05-26 *MRSA/MSSA DNA NASAL Clinical Report: (D) Specimen: NASAL SWAB Collected: 05/26/2022 15:23 Status: Final Last Updated: 05/27/2022 13:43 MSSA DNA (Final) Negative MRSA DNA (Final) Negative Normal [facility] Comment on above: Performed By: #### 3 1595 #### [facility] [address] C REACTIVE PROTEINon 022 CRP [Mass/Vol] 1.3 mg/L Normal 0.0-7.0 [facility] Comment on above: Performed By: #### 6 1405 #### [facility] [address] [place] [address], [facility] CBC W/DIFFon 05-26-2022 ABS IMM GRANS 0.0 10*3/uL Normal 0.0-0.2 [facility] Comment on above: Performed By: #### 6 1405 #### [facility] [address] [place] [address], [facility] ABS NEUTROPHILS 2.5 10*3/uL Normal 1.6-7.6 [facility] Comment on above: Performed By: #### 6 1405 #### [facility] [address] [place] [address], [facility] Basophils (Bld) [#/Vol] 0.0 10*3/uL Normal 0.0-0.2 [facility] Comment on above: Performed By: #### 6 1405 #### [facility] [address] [place] [address], [facility] Basophils/100 WBC (Bld) 0.3 % Normal 0.0-1.0 [facility] Comment on above: Performed By: #### 6 1405 #### [facility] [address] Eosinophils (Bld) [#/Vol] 0.1 10*3/uL Normal 0.0-0.5 [facility] Comment on above: Performed By: #### 6 1405 #### [facility] [address] [facility]. [address] Eosinophils/100 WBC (Bld) 1.5 % Normal 0.0-6.0 [facility] Comment on above: Performed By: #### 6 1405 #### [facility] [address] Erythrocyte distribution width (RBC) [Ratio] 15.9 % High 11.5-15.0 [facility] Comment on above: Performed By: #### 6 1405 #### [facility] [address] Hematocrit (Bld) [Volume fraction] 35.0 % Low 36.0-45.0 [facility] Comment on above: Performed By: #### 6 1405 #### [facility] [address] Hemoglobin (Bld) [Mass/Vol] 10.6 g/dL Low 12.0-15.0 [facility] Comment on above: Performed By: #### 6 1405 #### [facility] [address] IMMATURE GRANS 0.2 % Normal 0.0-1.0 [facility] Comment on above: Performed By: #### 6 1405 #### [facility] [address] Lymphocytes (Bld) [#/Vol] 2.8 10*3/uL Normal 1.2-4.0 [facility] Comment on above: Performed By: #### 6 1405 #### [facility] [address] [facility] [place] [address], [facility] Lymphocytes/100 WBC (Bld) 48.0 % High 20.0-45.0 [facility] Comment on above: Performed By: #### 6 1405 #### [facility] [address] [place] [address], [facility] MCH (RBC) [Entitic mass] 24.5 pg Low 27.0-33.0 [facility] Comment on above: Performed By: #### 6 1405 #### [facility] [address] [facility] [place] [address], [facility] MCHC (RBC) [Mass/Vol] 30.3 g/dL Low 32.0-35.0 [facility] Comment on above: Performed By: #### 6 1405 #### [facility] [address] [place] [address], [facility] MCV (RBC) [Entitic vol] 81.0 fL Low 82.0-98.0 [facility] Comment on above: Performed By: #### 6 1405 #### [facility] [address] [facility] [place] [address], [facility] Monocytes (Bld) [#/Vol] 0.4 10*3/uL Normal 0.1-1.0 [facility] Comment on above: Performed By: #### 6 1405 #### [facility] [address] [facility] [place] [address], [facility] MONOS 6.8 % Normal 5.0-12.0 [facility] Comment on above: Performed By: #### 6 1405 #### [facility] [address] [facility] [place] [address], [facility] Neutrophils/100 WBC (Bld) 43.2 % Normal 40.0-72.0 [facility] Comment on above: Performed By: #### 6 1405 #### [facility] [address] [place] [address], [facility] Nucleated RBC/100 WBC (Bld) [Ratio] 0 % Normal 0-0 [facility] Comment on above: Performed By: #### 6 1405 #### [facility] [address] [place] [address], [facility] PLAT CNT 246 10*3/uL Normal 150-400 [facility] Comment on above: Performed By: #### 6 1405 #### [facility] [address] [facility] [place] [address], [facility] RBC (Bld) [#/Vol] 4.32 10*6/uL Normal 3.80-5.00 [facility] Comment on above: Performed By: #### 6 1405 #### [facility] [address] [place] [address], [facility] WBC (Bld) [#/Vol] 5.87 10*3/uL Normal 4.00-10.60 [facility] Comment on above: Performed By: #### 6 1405 #### [facility] [address] [facility] [place] [address], [facility] HEMOGLOBIN A1Con 05-26-2022 Glucose [Moles/Vol] 100 mmol/L Normal [facility] Comment on above: Performed By: #### 3 1791 #### [facility] [address] [facility] [place] [address], [facility] HbA1c (Bld) [Mass fraction] 5.1 % Normal 4.0-6.0 [facility] Comment on above: Performed By: #### 3 1791 #### [facility] [address] [facility] [place] [address], [facility] SEDIMENTATION RATEon 022 SED RATE 17 mm/hr Normal 0-20 [facility] Comment on above: Performed By: #### 6 1405 #### [facility] [address] [facility] [place], [place] [address] US KIDNEYS BLADDERon 0723-2 022 US KIDNEYS BLADDER EXAMINATION: US ANEUDY SERRA BLADDER HISTORY: Kidney stone ; left flank [...] RUSSELL DUFF Date: 2022-05-02 16:18 Normal [facility] CBC AUTO DIFFon 04-29-2022 BASO # 0.0 103/ul Normal 0.0-0.1 [facility] Comment on above: Performed By: #### B MP LIPA, YVETTE, LIVER #### [facility] [address] [address] [address] Idania Roldan Basophils/100 WBC (Bld) 0.3 % Normal 0.2-2.0 [facility] Comment on above: Performed By: #### B MP, LIPA, YVETTE, LIVER #### [facility] [address] [address] [address] Idania Roldan EO # 0.1 103/ul Normal 0.0-0.7 [facility] Comment on above: Performed By: #### B MP LIPA, YVETTE, LIVER #### [facility] [address] [address] [address] Idania Roldan Eosinophils/100 WBC (Bld) 0.9 % Normal 0.9-7.0 [facility] Comment on above: Performed By: #### B RHIANNA LIPChristine YVETTE, LIVER #### [facility] [address] [place] [address] Dr. Idania Roldan Erythrocyte distribution width (RBC) [Ratio] 15.4 % Critically high 11.0-15.0 [facility] Comment on above: Performed By: #### B MP, LIPA, YVETTE, LIVER #### [facility] [address] [place] [address] Dr. Idania Roldan Hematocrit (Bld) [Volume fraction] 36.0 % Normal 36.0-48.0 [facility] Comment on above: Performed By: #### B MP, LIPA, YVETTE, LIVER #### [facility] [address] [place] [address] Dr. Idania Roldan Hemoglobin (Bld) [Mass/Vol] 11.2 g/dL Critically low 12.0-16.0 [facility] Comment on above: Performed By: #### B MP, LIPA, YVETTE, LIVER #### [facility] [address] [place] [address] Dr. Idania Roldan IG # 0.02 10e3/ul Normal 0.00-0.03 [facility] Comment on above: Performed By: #### B MP, LIPA, YVETTE, LIVER #### [facility] [address] [place] [address] Dr. Idania Roldan IG % 0.3 % Normal 0.0-0.5 [facility] Comment on above: Performed By: #### B MP, LIPA, YVETTE, LIVER #### [facility] [address] [place] [address] Dr. Idania Roldan LYMPH # 2.5 103/ul Normal 1.2-3.8 [facility] Comment on above: Performed By: #### B MP, LIPA, YVETTE, LIVER #### [facility] [address] [place] [address] Dr. Idania Roldan Lymphocytes/100 WBC (Bld) 36.2 % Normal 20.5-60.0 [facility] Comment on above: Performed By: #### B MP, LIPA, YVETTE, LIVER #### [facility] [address] [place] [address] Dr. Idania Roldan MANUAL DIFF REQ NO Normal [facility] Comment on above: Performed By: #### B MP, LIPA, YVETTE, LIVER #### [facility] [address] [place] [address] Dr. Idania Roldan MCH (RBC) [Entitic mass] 24.9 pg Critically low 26.7-34.0 [facility] Comment on above: Performed By: #### B MP, LIPA, YVETTE, LIVER #### [facility] [address] [place] [address] Dr. Idania Roldan MCHC (RBC) [Mass/Vol] 31.1 g/dL Normal 29.9-35.2 [facility] Comment on above: Performed By: #### B MP, LIPA, YVETTE, LIVER #### [facility] [address] [place] [address] Dr. Idania Roldan MCV (RBC) [Entitic vol] 80.2 fL Critically low 81.0-99.0 [facility] Comment on above: Performed By: #### B MP, LIPA, YVETTE, LIVER #### [facility] [address] [place] [address] Dr. Idania Roldan MONO # 0.5 103/ul Normal 0.3-0.8 [facility] Comment on above: Performed By: #### B MP, LIPA, YVETTE, LIVER #### [facility] [address] [place] [address] Dr. Idania Roldan Monocytes/100 WBC (Bld) 6.7 % Normal 1.7-12.0 [facility] Comment on above: Performed By: #### B MP, LIPA, YVETTE, LIVER #### [facility] [address] [place] [address] Dr. Idania Roldan NEUT # 3.8 103/ul Normal 1.4-6.5 [facility] Comment on above: Performed By: #### B MP, LIPA, YVETTE, LIVER #### [facility] [address] [place] [address] Dr. Idania Roldan Neutrophils/100 WBC (Bld) 55.6 % Normal 43.0-75.0 [facility] Comment on above: Performed By: #### B MP, LIPA, YVETTE, LIVER #### [facility] [address] [place] [address] Dr. Idania Roldan Platelet mean volume (Bld) [Entitic vol] 9.9 fL Normal 9.5-13.5 [facility] Comment on above: Performed By: #### B MP, LIPA, YVETTE, LIVER #### [facility] [address] [place] [address] Dr. Idania Roldan PLT 265 103/ul Normal 150-450 [facility] Comment on above: Performed By: #### B MP, LIPA, YVETTE, LIVER #### [facility] [address] [place] [address] Dr. Idania Roldan RBC 4.49 106/ul Normal 4.20-5.40 [facility] Comment on above: Performed By: #### B MP, LIPA, YVETTE, LIVER #### [facility] [address] [place] [address] Dr. Idania Roldan WBC 6.8 103/ul Normal 4.0-11.0 [facility] Comment on above: Performed By: #### B MP, LIPA, YVETTE, LIVER #### [facility] [address] [place] [address] Dr. Idania Roldan ER URINE PROFILEon 2 Bilirubin Ql (U) Negative Normal NEGATIVE [facility] Comment on above: Performed By: #### P T, PTT #### [facility] [address] [place] [address] Dr. Idania Roldan Clarity (U) CLEAR Normal CLEAR [facility] Comment on above: Performed By: #### P T, PTT #### [facility] [address] [place] [address] Dr. Idania Roldan Color (U) LT. YELLOW Normal YELLOW [facility] Comment on above: Performed By: #### P T, PTT #### [facility] [address] [place] [address] Dr. Yilan Roldan ERUAHD A micrscopic examina tion will be performed if indicated. Normal [facility] Comment on above: Performed By: #### P T, PTT #### [facility] [address] [place] [address] Dr. Idania Roldan Glucose Ql (U) Negative Normal NEGATIVE [facility] Comment on above: Performed By: #### P T, PTT #### [facility] [address] [place] [address] Dr. Idania Roldan Hemoglobin Ql (U) LARGE Abnormal NEGATIVE [facility] Comment on above: Performed By: #### P T, PTT #### [facility] [address] [place] [address] Dr. Idania Roldan Ketones Ql (U) Negative Normal NEGATIVE [facility] Comment on above: Performed By: #### P T, PTT #### [facility] [address] [place] [address] Dr. Idania Roldan LEUKOCYTES TRACE Abnormal NEGATIVE [facility] Comment on above: Performed By: #### P T, PTT #### [facility] [address] [place] [address] Dr. Idania Roldan Nitrite Ql (U) Negative Normal NEGATIVE [facility] Comment on above: Performed By: #### P T, PTT #### [facility] [address] [place] [address] Dr. Idania Roldan pH (U) 6.0 [pH] Normal 5-9 [facility] Comment on above: Performed By: #### P T, PTT #### [facility] [address] [place] [address] Dr. Idania Roldan SPEC GRAVITY 1.010 Normal 1.005-<=1.02 5 [facility] Comment on above: Performed By: #### P T, PTT #### [facility] [address] [place] [address] Dr. Idania Roldan UA PROTEIN Negative Normal NEGATIVE/ TRACE [facility] Comment on above: Performed By: #### P T, PTT #### [facility] [address] [place] [address] Dr. Idania Roldan UR MICRO IND INDICATED Normal [facility] Comment on above: Performed By: #### P T, PTT #### [facility] [address] [place] [address] Dr. Idania Roldan Urobilinogen Qn (U) 0.2 {Bryan'U}/dL Normal 0.2 - 1. 0 [facility] Comment on above: Performed By: #### P T, PTT #### [facility] [address] [place] [address] Dr. Idania Roldan PROF CHEM 8 (BAS METB)on Anion gap [Moles/Vol] 10.9 mmol/L Normal [facility] Comment on above: Performed By: #### P T, PTT #### [facility] [address] [place] [address] Dr. Idania Roldan Calcium [Mass/Vol] 8.9 mg/dL Normal 8.5-10.1 [facility] Comment on above: Performed By: #### P T, PTT #### [facility] [address] [place] [address] Dr. Idania Roldan Chloride [Moles/Vol] 104 mmol/L Normal 98-107 [facility] Comment on above: Performed By: #### P T, PTT #### [facility] [address] [place] [address] Dr. Idania Roldan CO2 [Moles/Vol] 28.9 mmol/L Normal 21.0-32.0 [facility] Comment on above: Performed By: #### P T, PTT #### [facility] [address] [place] [address] Dr. Idania Roldan Creatinine [Mass/Vol] 0.71 mg/dL Normal 0.55-1.02 [facility] Comment on above: Performed By: #### P T, PTT #### [facility] [address] [place] [address] Dr. Idania Roldan EGFR-AF NIGERIEN >60 Normal >=60 [facility] Comment on above: Performed By: #### P T, PTT #### [facility] [address] [place] [address] Dr. Idania Roldan EGFR-NON AF NIGERIEN >60 Normal >=60 [facility] Comment on above: Performed By: #### P T, PTT #### [facility] [address] [address] [address] Idania Roldan Glucose [Mass/Vol] 88 mg/dL Normal 74-106 [facility] Comment on above: Performed By: #### P T, PTT #### [facility] [address] [place] [address] Dr. Idania Roldan Potassium [Moles/Vol] 3.8 mmol/L Normal 3.5-5.1 [facility] Comment on above: Performed By: #### P T, PTT #### [facility] [address] [place] [address] Dr. Idania Roldan Sodium [Moles/Vol] 140 mmol/L Normal 136-145 [facility] Comment on above: Performed By: #### P T, PTT #### [facility] [address] [place] [address] Dr. Idania Roldan Urea nitrogen [Mass/Vol] 13.0 mg/dL Normal 7.0-18.0 [facility] Comment on above: Performed By: #### P T, PTT #### [facility] [address] [place] [address] Dr. Idania Roldan Urea nitrogen/Creatinine [Mass ratio] 18.3 mg/mg Normal [facility] Comment on above: Performed By: #### P T, PTT #### [facility] [address] [place] [address] Dr. Idania Roldan URINE MICROSCOPIC ONLYon BACTERIA NONE SEEN Normal NONE SEEN [facility] Comment on above: Performed By: #### P T, PTT #### [facility] [address] [place] [address] Dr. Idania Roldan Bacteria identified Cx Nom (U) NOT INDICATED Normal [facility] Comment on above: Performed By: #### P T, PTT #### [facility] [address] [place] [address] Dr. Idania Roldan CAST NONE SEEN Normal NONE SEEN [facility] Comment on above: Performed By: #### P T, PTT #### [facility] [address] [address] [address] Idania Roldan Crystals LM Nom (Urine sed) NONE SEEN Normal NONE SEEN [facility] Comment on above: Performed By: #### P T, PTT #### [facility] [address] [place] [address] Dr. Idania Roldan Epithelial cells LM Ql (Urine sed) FEW Abnormal NONE SEEN /RARE [facility] Comment on above: Performed By: #### P T, PTT #### [facility] [address] [place] [address] Dr. Idania Roldan MUCOUS NONE SEEN Normal NONE SEEN [facility] Comment on above: Performed By: #### P T, PTT #### [facility] [address] [place] [address] Dr. Idania Roldan RBC 50-75 Abnormal 0-2 [facility] Comment on above: Performed By: #### P T, PTT #### [facility] [address] [place] [address] Dr. Idania Roldan WBC 0-2 Abnormal NONE SEEN [facility] Comment on above: Performed By: #### P T, PTT #### [facility] [address] [place] [address] Dr. Idaina Roldan XR ABD FLAT UP_PA Edna 04-29 [...] RUSSELL DUFF Date: 2022-04-29 13:37 Normal [facility] US KIDNEYS BLADDERon 022 US KIDNEYS BLADDER EXAMINATION: US KIDSonia PANTOJAS BLADDER HISTORY: Kidney stone , left flank [...] RUSSELL DUFF Date: 2022-04-16 18:24 Normal [facility] CT LOWER EXTREMITY WO CONTRA ST LEFTon 04-07-2022 CT LOWER EXTREMITY WO CONTRAST LEFT [facility] Department of Radiology [address] [place] [id number] Patient Name: ELVI MOORE : 1980 Sex: F Age: Race: White Pt. Location: Patient Status: D Ordered Date: 03/24/2022 9:30:00 AM Completed Date: 04/07/2022 05:13 PM Requesting Provider: KEVIN LANE Attending Provider: KEVIN LANE Report Copy To: [email or web address] Signs & Symptoms: Z96.659 Presence of unspecified artificial knee joint I10 History: [place] Comments: , left knee Exam: CT LOWER [...] arthroplasty. Electronically signed: Elvis Perez. Transcribed by: [email or web address], User Resident: Electronically Signed by: ELVIS PEREZ @ 04/12/2022 09:46 AM Normal [facility] Comment on above: Order Comment: , lef t knee C REACTIVE PROTEINon 022 CRP [Mass/Vol] 2.2 mg/L Normal 0.0-7.0 [facility] Comment on above: Performed By: #### 3 1791 #### [facility] [address] [place], [place] [id number] [place] [address] SEDIMENTATION RATEon 022 SED RATE 30 mm/hr High 0-20 [facility] Comment on above: Performed By: #### 5 6506 #### [id number] [place] [address] KNEE LEFT 1 OR 2 VWSon 02-12 KNEE LEFT 1 OR 2 VWS [facility] Department of Radiology [address] [place] [phone] Patient Name: ELVI MOORE : 1980 [...] report. Electronically signed: Sathya Christianson. Transcribed by: [email or web address], User Resident: Electronically Signed by: SATHYA CHRISTIANSON @ 02/13/2022 10:48 PM Normal [facility] Comment on above: Order Comment: LT KN EE REANNA Operative Reporton 2 Operative Report MR#: [id number] S [facility] Pt. Name: Elvi Moore Room #: 0C Discharge Date: Birthdate: 1980 OPERATIVE REPORT DATE OF SURGERY: 02/12/2022 SURGEON: Kevin Lane M.D. NETWORK OPERATIONS LEAD: None. PREOPERATIVE DIAGNOSIS: Left total knee arthroplasty [...] Lane M.D. Date Trans: 02/12/2022 09:35 A/taylor [id number] cc: Arleth Acharya M.D. [address], [facility] [phone] Normal [facility] POC GLUCOSE LABon 02-12-2022 Glucose [Mass/Vol] 96 mg/dL Normal 70-100 [facility] Comment on above: Performed By: #### 8 5499 ####[facility] [facility].[place], [place] [id number] [place] [address] C REACTIVE PROTEINon 022 CRP [Mass/Vol] 1.7 mg/L Normal 0.0-7.0 [facility] Comment on above: Performed By: #### 6 1405 #### [facility] [address] [facility] [place] [address], [facility] SEDIMENTATION RATEon 022 SED RATE 18 mm/hr Normal 0-20 [facility] Comment on above: Performed By: #### 6 1405 #### [facility] [address] [facility] [place] [address], [facility] KNEE LEFT 3 VWSon 12-26-2021 KNEE LEFT 3 S [facility] Department of Radiology [address] [place], [place] [phone] Patient Name: ELVI MOORE : 1980 Sex: F Age: Race: White Pt. Location: Patient Status: Ordered Date: 12/26/2021 1:45:00 PM Completed Date: 12/26/2021 01:50 PM Requesting Provider: JORDEN BRODY Attending Provider: Report Copy To: Signs & Symptoms: Z47.1 Aftercare following joint replacement surgery I10 History: [place] Comments: , , , Ordering Provider - JORDEN BRODY HIV/AIDS CARE NURSE , Exam: KNEE LEFT 3 VWS KNEE LEFT 3 S 12/26/2021 1:50 PM [...] report. Electronically signed: Yvette Desai. Transcribed by: [email or web address], User Resident: CHRISTELLE ABDI Electronically Signed by: YVETTE DESAI @ 12/26/2021 04:27 PM I personally read this/these film(s) with this resident Normal [facility] Comment on above: Order Comment: , , = ========= , Ordering Provider - JORDEN BRODY CNP , KNEE LEFT 3 Son 12-09-2021 KNEE LEFT 3 [facility] Department of Radiology [address] [place] [phone] Patient Name: BLODY, ELVI : 1980 Sex: F Age: Race: White Pt. Location: Patient Status: D Ordered Date: 12/09/2021 9:30:00 AM Completed Date: 12/09/2021 09:37 AM Requesting Provider: JORDEN BRODY Attending Provider: JORDEN BRODY Report Copy To: Signs & Symptoms: Z47.1 Aftercare following joint replacement surgery I10 History: [place] Comments: Exam: KNEE LEFT 3 S KNEE LEFT [address] [facility] HISTORY: Knee replacement, follow-up. COMPARISON: 10/30/2021. IMPRESSION: 1. Redemonstrated knee arthroplasty, no hardware complication or acute abnormality. Small to moderate joint effusion. 2. Improving soft tissue changes. Electronically signed: Ezio Roberts. Transcribed by: [email or web address], User Resident: Electronically Signed by: EZIO ROBERTS @ 12/10/2021 08:39 AM Normal [facility] Operative Reporton Operative Report MR#: [id number] S [facility] Pt. Name: Elvi Moore Room #: 0C Discharge Date: Birthdate: 1980 OPERATIVE REPORT DATE OF SURGERY: 10/30/2021 SURGEON: Kevin Lane M.D. NETWORK OPERATIONS LEAD: 1. MD [place]. 2. LAVON Quinones. ANESTHESIA: [...] arthrotomy was closed itself with #2 interrupted hdlmik-za-aunap suture. The remainder of the incision was closed in a layered fashion. Sterile dressing was applied. At the conclusion of the case, all sponge and needle counts were correct. I was present for the critical portions of this case. Electronically Signed by: Kevin Lane M.D. 10/30/2021 07:[address] M.D. Date Dict: 10/30/2021/11:00 A/Kevin Lane M.D. Date Trans: 10/30/2021 12:34 P/mmo [id number] cc: Arleth Acharya M.D. [address], [facility] [phone] Nasir Thacker, DO [address] [facility] [address] [facility] [address] Normal [facility] POC GLUCOSE LABon 10-30-2021 Glucose [Mass/Vol] 88 mg/dL Normal 70-100 [facility] Comment on above: Performed By: #### 8 5499 ####[address] PORTABLE KNEE LEFT 2 VWSon 0 10-30-2021 PORTABLE KNEE LEFT 2 VWS [facility] Department of Radiology [address] [place] [phone] Patient Name: ELVI MOORE : [...] complication Electronically signed: Yvette Andrade. Transcribed by: [email or web address], User Resident: Electronically Signed by: YVETTE ANDRADE @ 10/30/2021 11:20 AM Normal [facility] Comment on above: Order Comment: Hardw are Evaluation, Postop PACU films for L knee s/p TKA. AP and lateral please *MRSA/MSSA DNA NASALon 10-07 *MRSA/MSSA DNA NASAL Clinical Report: (D) Specimen: NASAL SWAB Collected: 10/07/2021 10:51 Status: Final Last Updated: 10/07/2021 15:44 MSSA DNA (Final) Negative MRSA DNA (Final) Negative Normal [facility] Comment on above: Performed By: #### 3 1595 ####[facility] [place] [address], [facility] APTTon 10-07-2021 aPTT Coag (Bld) [Time] 32.2 s Normal 25.0-35.0 [facility] Comment on above: Result Comment: [...] PURPOSE. Performed By: #### 3 1791 #### [facility] [address] [place] [address], [facility] BASIC METABOLIC PANELon - Calcium [Mass/Vol] 9.2 mg/dL Normal 8.6-10.3 [facility] Comment on above: Performed By: #### 3 1791 #### [facility] [address] [place] [address], [place] Chloride [Moles/Vol] 106 mmol/L Normal 98-107 [facility] Comment on above: Performed By: #### 3 1791 #### [facility] [address] [place] [address], [place] CO2 [Moles/Vol] 28 mmol/L Normal 21-31 [facility] Comment on above: Performed By: #### 3 1791 #### [facility] [address] [place] [address], [place] Creatinine [Mass/Vol] 0.77 mg/dL Normal 0.60-1.20 [facility] Comment on above: Performed By: #### 3 1791 #### [facility] [address] [place] [address], [place] GFR/1.73 sq M.predicted among blacks MDRD (S/P/Bld) [Vol rate/Area] mL/min/{1.73_m2} Normal >60 [facility] Comment on above: Performed By: #### 3 1791 #### [facility] [address] [place] [address], [facility] GFR/1.73 sq M.predicted among non-blacks MDRD (S/P/Bld) [Vol rate/Area] mL/min/{1.73_m2} Normal >60 [facility] Comment on above: Performed By: #### 3 1791 #### [facility] [address] [place] [address], [facility] Glucose [Mass/Vol] 84 mg/dL Normal 70-100 [facility] Comment on above: Performed By: #### 3 1791 #### [facility] [address] [place] [address], [facility] Potassium [Moles/Vol] 4.4 mmol/L Normal 3.5-5.1 [facility] Comment on above: Performed By: #### 3 1791 #### [facility] [address] [place] [address], [facility] Sodium [Moles/Vol] 142 mmol/L Normal 136-145 [facility] Comment on above: Performed By: #### 3 1791 #### [facility] [address] [place] [address], [facility] Urea nitrogen [Mass/Vol] 12 mg/dL Normal 7-25 [facility] Comment on above: Performed By: #### 3 1791 #### [facility] [address] [place] [address], [facility] CBC W/DIFFon 10-07-2021 ABS IMM GRANS 0.0 10*3/uL Normal 0.0-0.2 [facility] Comment on above: Performed By: #### 6 1405 #### [facility] [address] [place] [address], [place] ABS NEUTROPHILS 4.7 10*3/uL Normal 1.6-7.6 [facility] Comment on above: Performed By: #### 6 1405 #### [facility] [address] [place] [address], [facility] Basophils (Bld) [#/Vol] 0.0 10*3/uL Normal 0.0-0.2 [facility] Comment on above: Performed By: #### 6 1405 #### [facility] [address] [place] [address], [facility] Basophils/100 WBC (Bld) 0.3 % Normal 0.0-1.0 [facility] Comment on above: Performed By: #### 6 1405 #### [facility] [address] [place] [address], [facility] Eosinophils (Bld) [#/Vol] 0.2 10*3/uL Normal 0.0-0.5 [facility] Comment on above: Performed By: #### 6 1405 #### [facility] [address] [place] [address], [facility] Eosinophils/100 WBC (Bld) 1.9 % Normal 0.0-6.0 [facility] Comment on above: Performed By: #### 6 1405 #### [facility] [address] [facility] [place] [address], [facility] Erythrocyte distribution width (RBC) [Ratio] 14.0 % Normal 11.5-15.0 [facility] Comment on above: Performed By: #### 6 1405 #### [facility] [address] [place] [address], [facility] Hematocrit (Bld) [Volume fraction] 37.1 % Normal 36.0-45.0 [facility] Comment on above: Performed By: #### 6 1405 #### [facility] [address] [place] [address], [facility] Hemoglobin (Bld) [Mass/Vol] 11.3 g/dL Low 12.0-15.0 [facility] Comment on above: Performed By: #### 6 1405 #### [facility] [address] [place] [address], [facility] IMMATURE GRANS 0.1 % Normal 0.0-1.0 [facility] Comment on above: Performed By: #### 6 1405 #### [facility] [address] [place] [address], [facility] Lymphocytes (Bld) [#/Vol] 2.5 10*3/uL Normal 1.2-4.0 [facility] Comment on above: Performed By: #### 6 1405 #### [facility] [address] Lymphocytes/100 WBC (Bld) 31.6 % Normal 20.0-45.0 [facility] Comment on above: Performed By: #### 6 1405 #### [facility] [address] [place] [address], [facility] MCH (RBC) [Entitic mass] 25.5 pg Low 27.0-33.0 [facility] Comment on above: Performed By: #### 6 1405 #### [facility] [address] [place] [address], [facility] MCHC (RBC) [Mass/Vol] 30.5 g/dL Low 32.0-35.0 [facility] Comment on above: Performed By: #### 6 1405 #### [facility] [address] [place] [address], [facility] MCV (RBC) [Entitic vol] 83.7 fL Normal 82.0-98.0 [facility] Comment on above: Performed By: #### 6 1405 #### [facility] [address] [place] [address], [facility] Monocytes (Bld) [#/Vol] 0.5 10*3/uL Normal 0.1-1.0 [facility] Comment on above: Performed By: #### 6 1405 #### [facility] [address] MONOS 6.0 % Normal 5.0-12.0 [facility] Comment on above: Performed By: #### 6 1405 #### [facility] [address] [place] [address], [facility] Neutrophils/100 WBC (Bld) 60.1 % Normal 40.0-72.0 [facility] Comment on above: Performed By: #### 6 1405 #### [facility] [address] Nucleated RBC/100 WBC (Bld) [Ratio] 0 % Normal 0-0 [facility] Comment on above: Performed By: #### 6 1405 #### [facility] [address] PLAT CNT 233 10*3/uL Normal 150-400 [facility] Comment on above: Performed By: #### 6 1405 #### [facility] [address] RBC (Bld) [#/Vol] 4.43 10*6/uL Normal 3.80-5.00 [facility] Comment on above: Performed By: #### 6 1405 #### [facility] [address] [place] [address], [facility] WBC (Bld) [#/Vol] 7.85 10*3/uL Normal 4.00-10.60 [facility] Comment on above: Performed By: #### 6 1405 #### [facility] [address] PROTHROMBIN TIMEon 1 INR Coag (PPP) [Relative time] 0.94 {INR} Normal 0.91-1.16 [facility] Comment on above: Result Comment: ACCC P RECOMMENDED INR FOR WARFARIN THERAPY ------ ------- CONDITION INR PROPHYLAXIS OF VENOUS THROMBOSIS 2-3 (HIGH-RISK SURGERY) TREATMENT OF VENOUS THROMBOSIS 2-3 TREATMENT OF PULMONARY EMBOLISM 2-3 PREVENTION OF SYSTEMIC EMBOLISM: 2-3 ACUTE MYOCARDIAL INFARCTION TISSUE HEART VALVES VALVULAR HEART DISEASE ATRIAL FIBRILLATION RECURRENT SYSTEMIC EMBOLISM MECHANICAL HEART VALVE 2.5-3.5 FROM: ORAL ANTICOAGULANTS. MECHANISM OF ACTION, CLINICAL EFFECTIVENESS, AND OPTIMAL THERAPEUTIC RANGE. CHEST 1995;108:231S-246S. Performed By: #### 3 1790 #### [facility] [address] [place] [address], [facility] PT Coag (PPP) [Time] 12.6 s Normal 12.3-14.8 [facility] Comment on above: Result Comment: ALL RESULTS MUST BE INTERPRETED WITH RESPECT TO BLOOD DRAWING ARTIFACT OR DILUTION ERROR OF ANTICOAGULANT AT THE TIME OF SAMPLING. Performed By: #### 3 5121 #### [facility] [address] [place] [address], [facility] TYPE AND SCREENon 10-07-2021 ABO INTERPRETATION O Normal [facility] Comment on above: Performed By: #### 3 1 #### [facility] [address] [place] [id number], [facility] RH INTERPRETATION Positive Normal [facility] Comment on above: Performed By: #### 3 1790 #### [facility] [address] [place] [address], [facility] *MRSA/MSSA DNA NASALon 08-12 *MRSA/MSSA DNA NASAL Clinical Report: (D) Specimen: NASAL SWAB Collected: 08/12/2021 10:14 Status: Final Last Updated: 08/12/2021 18:58 MSSA DNA (Final) Negative MRSA DNA (Final) Negative Normal [facility] Comment on above: Performed By: #### 6 1405 #### [facility] [address] [place] [address], [facility] CBC W/DIFFon 08-12-2021 ABS IMM GRANS 0.0 10*3/uL Normal 0.0-0.2 [facility] Comment on above: Performed By: #### 6 1405 #### [facility] [address] [place] [address], [facility] ABS NEUTROPHILS 3.7 10*3/uL Normal 1.6-7.6 [facility] Comment on above: Performed By: #### 6 1405 #### [facility] [address] Basophils (Bld) [#/Vol] 0.0 10*3/uL Normal 0.0-0.2 [facility] Comment on above: Performed By: #### 6 1405 #### [facility] [address] [place] [address], [facility] Basophils/100 WBC (Bld) 0.3 % Normal 0.0-1.0 [facility] Comment on above: Performed By: #### 6 1405 #### [facility] [address] [place] [address], [facility] Eosinophils (Bld) [#/Vol] 0.2 10*3/uL Normal 0.0-0.5 [facility] Comment on above: Performed By: #### 6 1405 #### [facility] [address] [place] [address], [facility] Eosinophils/100 WBC (Bld) 2.9 % Normal 0.0-6.0 [facility] Comment on above: Performed By: #### 6 1405 #### [facility] [address] Erythrocyte distribution width (RBC) [Ratio] 14.0 % Normal 11.5-15.0 [facility] Comment on above: Performed By: #### 6 1405 #### [facility] 3000 [facility]. [address] Hematocrit (Bld) [Volume fraction] 37.0 % Normal 36.0-45.0 [facility] Comment on above: Performed By: #### 6 1405 #### [facility] [address] Hemoglobin (Bld) [Mass/Vol] 11.6 g/dL Low 12.0-15.0 [facility] Comment on above: Performed By: #### 6 1405 #### [facility] [address] IMMATURE GRANS 0.3 % Normal 0.0-1.0 [facility] Comment on above: Performed By: #### 6 1405 #### [facility] [address] Lymphocytes (Bld) [#/Vol] 2.1 10*3/uL Normal 1.2-4.0 [facility] Comment on above: Performed By: #### 6 1405 #### [facility] [address] Lymphocytes/100 WBC (Bld) 32.5 % Normal 20.0-45.0 [facility] Comment on above: Performed By: #### 6 1405 #### [facility] [address] MCH (RBC) [Entitic mass] 26.8 pg Low 27.0-33.0 [facility] Comment on above: Performed By: #### 6 1405 #### [facility] [address] [facility]. [address] MCHC (RBC) [Mass/Vol] 31.4 g/dL Low 32.0-35.0 [facility] Comment on above: Performed By: #### 6 1405 #### [facility] [address] [place] [address], [facility] MCV (RBC) [Entitic vol] 85.5 fL Normal 82.0-98.0 [facility] Comment on above: Performed By: #### 6 1405 #### [facility] [address] [place] [address], [facility] Monocytes (Bld) [#/Vol] 0.5 10*3/uL Normal 0.1-1.0 [facility] Comment on above: Performed By: #### 6 1405 #### [facility] [address] [facility]. [address] MONOS 6.9 % Normal 5.0-12.0 [facility] Comment on above: Performed By: #### 6 1405 #### [facility] [address] [place] [address], [facility] Neutrophils/100 WBC (Bld) 57.1 % Normal 40.0-72.0 [facility] Comment on above: Performed By: #### 6 1405 #### [facility] [address] [facility]. [address] Nucleated RBC/100 WBC (Bld) [Ratio] 0 % Normal 0-0 [facility] Comment on above: Performed By: #### 6 1405 #### [facility] [address] [facility] [place] [address], [facility] PLAT CNT 223 10*3/uL Normal 150-400 [facility] Comment on above: Performed By: #### 6 1405 #### [facility] [address] [facility] [place] [address], [facility] RBC (Bld) [#/Vol] 4.33 10*6/uL Normal 3.80-5.00 [facility] Comment on above: Performed By: #### 6 1405 #### [facility] [address] [place] [address], [facility] WBC (Bld) [#/Vol] 6.55 10*3/uL Normal 4.00-10.60 [facility] Comment on above: Performed By: #### 6 1405 #### [facility] [address] [place] [address], [facility] HEMOGLOBIN A1Con 08-12-2021 Glucose [Moles/Vol] 103 mmol/L Normal [facility] Comment on above: Performed By: #### 3 1791 #### [facility] [address] [facility] [place] [place] [address], [facility] HbA1c (Bld) [Mass fraction] 5.2 % Normal 4.0-6.0 [facility] Comment on above: Performed By: #### 3 1791 #### [facility] [address] [facility] [place] [place] [address], [facility] KNEE LEFT 3 VWSon 08-12-2021 KNEE LEFT 3 S [facility] Department of Radiology [address] [place] [id number] Patient Name: ELVI MOORE : 1980 [...] report. Electronically signed: Jah Juarez. Transcribed by: [email or web address], User Resident: JODY KEITH Electronically Signed by: JAH JUAREZ @ 08/12/2021 03:46 PM I personally read this/these film(s) with this resident Normal [facility] Comment on above: Order Comment: evalu ate Amylaseon 10-09-2018 Amylase enzyme act/vol 56 U/L Normal 28-100 [facility] Comment on above: Performed By: #### L IP, CDP, CP, YVETTE ####[address] [place] [address] CBC with Diffon 10-09-2018 Abs. Basophil <0.03 Normal 0.00-0.20 [facility] Comment on above: Performed By: #### L IP, CDP, CP, YVETTE ####[address] [place] [address] Abs.Imm.Granulocyte <0.03 Normal 0.00-0.30 [facility] Comment on above: Performed By: #### L IP, CDP, CP, YVETTE ####[address] [place] [address] Abs.Neutrophil (Seg) 3.08 k/uL Normal 1.50-8.10 [facility] Comment on above: Performed By: #### L IP, CDP, CP, YVETTE ####[address] [place] [address] Basophils/100 WBC Auto (Bld) 0 % Normal 0-2 [facility] Comment on above: Performed By: #### L IP, CDP, CP, YVETTE ####[address] [place] [address] Eosinophils Auto #/vol (Bld) 0.16 10*3/uL Normal 0.00-0.44 [facility] Comment on above: Performed By: #### L IP, CDP, CP, YVETTE ####[address] [place] [address] Eosinophils/100 WBC Auto (Bld) 3 % Normal 1-4 [facility] Comment on above: Performed By: #### L IP, CDP, CP, YVETTE ####[address] [place] [address] Erythrocyte distribution width Auto Ratio (RBC) 13.1 % Normal 11.8-14.4 [facility] Comment on above: Performed By: #### L IP, CDP, CP, YVETTE ####[address] [place] [address] Hematocrit Auto Volume Fraction (Bld) 39.4 % Normal 36.3-47.1 [facility] Comment on above: Performed By: #### L IP, CDP, CP, YVETTE ####[address] [place] [address] Hemoglobin mass conc (Bld) 13.0 g/dL Normal 11.9-15.1 [facility] Comment on above: Performed By: #### L IP, CDP, CP, YVETTE ####[address] , [facility] Immature granulocytes #/vol (Bld) 0 % Normal 0 [facility] Comment on above: Performed By: #### L IP, CDP, CP, YVETTE ####[address] , [place] [address] Lymphocytes Auto #/vol (Bld) 2.83 10*3/uL Normal 1.10-3.70 [facility] Comment on above: Performed By: #### L IP, CDP, CP, YVETTE ####[address] , [place] [address] Lymphocytes/100 WBC Auto (Bld) 44 % High 24-43 [facility] Comment on above: Performed By: #### L IP, CDP, CP, YVETTE ####[address] , [place] [address] MCH Auto Entitic mass (RBC) 29.3 pg Normal 25.2-33.5 [facility] Comment on above: Performed By: #### L IP, CDP, CP, YVETTE ####[address] , [place] [address] MCHC Auto mass conc (RBC) 33.0 g/dL Normal 28.4-34.8 [facility] Comment on above: Performed By: #### L IP, CDP, CP, YVETTE ####[address] , [place] [address] MCV Auto Entitic volume (RBC) 88.7 fL Normal 82.6-102.9 [facility] Comment on above: Performed By: #### L IP, CDP, CP, YVETTE ####[address] [place] [address] Monocytes Auto #/vol (Bld) 0.38 10*3/uL Normal 0.10-1.20 [facility] Comment on above: Performed By: #### L IP, CDP, CP, YVETTE ####[address] , [facility] Monocytes/100 WBC Auto (Bld) 6 % Normal 3-12 [facility] Comment on above: Performed By: #### L IP, CDP, CP, YVETTE ####[address] , [place] [address] Neutrophil (Seg) 47 % Normal 36-65 [facility] Comment on above: Performed By: #### L IP, CDP, CP, YVETTE ####[address] , [place] [address] NRBC Automated 0.0 per 100 WBC Normal 0.0 [facility] Comment on above: Performed By: #### L IP, CDP, CP, YVETTE ####[address] , [place] [address] Platelet mean volume Auto Entitic volume (Bld) 9.4 fL Normal 8.1-13.5 [facility] Comment on above: Performed By: #### L IP, CDP, CP, YVETTE ####[address] , [place] [address] Platelets Auto #/vol (Bld) 211 10*3/uL Normal 138-453 [facility] Comment on above: Performed By: #### L IP, CDP, CP, YVETTE ####[address] , [place] [address] RBC Auto #/vol (Bld) 4.44 10*6/uL Normal 3.95-5.11 [facility] Comment on above: Performed By: #### L IP, CDP, CP, YVETTE ####[address] [place] [address] WBC Auto #/vol (Bld) 6.5 10*3/uL Normal 3.5-11.3 [facility] Comment on above: Performed By: #### L IP, CDP, CP, YVETTE ####[address] [place] [address] Auto Diff Performed NOT REPORTED Normal [facility] Comment on above: Performed By: #### L IP, CDP, CP, YVETTE ####[address] [place] [address] Platelets Auto #/vol (Bld) NOT REPORTED Normal [facility] Comment on above: Performed By: #### L IP, CDP, CP, YVETTE ####[address] [place] [address] RBC morphology finding Nom (Bld) NOT REPORTED Normal [facility] Comment on above: Performed By: #### L IP, CDP, CP, YVETTE ####[address] [place] [address] WBC Morphology NOT REPORTED Normal [facility] Comment on above: Performed By: #### L IP, CDP, CP, YVETTE ####[address] [place] [address] CT ABDOMEN PELVIS WO CONTRAS Ton 10-09-2018 CT ABDOMEN PELVIS WO CONTRAST EXAMINATION:CT OF THE ABDOMEN AND PELVIS WITHOUT CONTRAST 10/08/2018 11:53 pmTECHNIQUE:CT of the abdomen and pelvis was performed without the administration ofintravenous contrast. Multiplanar reformatted images are provided for review.Dose modulation, iterative reconstruction, and/or weight based adjustment ofthe mA/kV was utilized to reduce the radiation dose to as low as reasonablyachievable.COMP ARISON:June 13, 2018.HISTORY:ORDERING SYSTEM PROVIDED HISTORY: flank painFINDINGS:Suboptimal evaluation of the solid abdominal organs and vasculature due tolack of intravenous contrast.Lower Chest: Normal.Liver: Normal.Gallbladder and Bile Ducts: Prior cholecystectomy.Spleen: Normal.Adrenal Glands: Normal.Pancreas: Normal.Genitourinary: Normal.Bowel: Postsurgical changes of gastric bypass. No bowel obstruction. Nosignificant diverticular disease. Prior appendectomy.Vasculature: Normal caliber abdominal aorta.Bones and Soft Tissues: No acute abnormality.Retroperitone um/Mesentery: No intraperitoneal free air, ascites or fluidcollection. No lymphadenopathy in the abdomen or pelvis.IMPRESSION: No acute abnormality in the abdomen or pelvis.No obstructive uropathy. No urinary calculi or hydronephrosis.Interprete d by:Tl Diaz, DOSigned by:Tl Diaz, DO10/09/18Final result Normal [facility] Comp Metabolic Profon 2017 (cont.) Normal [facility] Comment on above: Result Comment: Aver age GFR for 30-39 years old: 107 mL/min/1.73sq mChronic Kidney Disease: <60 mL/min/1.73sq mKidney failure: <15 mL/min/1.73sq meGFR calculated using average adult body mass. Additional eGFR calculator available at:http://www.[employer]/multiple_crcl_2012.htm Performed By: #### L IP, CDP, CP, YVETTE ####[address] [place] [address] Albumin mass conc 4.2 g/dL Normal 3.5-5.2 [facility] Comment on above: Performed By: #### L IP, CDP, CP, YVETTE ####[address] [place] [address] Albumin/Globulin mass ratio 1.4 {ratio} Normal 1.0-2.5 [facility] Comment on above: Performed By: #### L IP, CDP, CP, YVETTE ####[address] [place] [address] Alkaline Phos 75 U/L Normal 35-104 [facility] Comment on above: Performed By: #### L IP, CDP, CP, YVETTE ####[address] [place] [address] ALT enzyme act/vol 10 U/L Normal 5-33 [facility] Comment on above: Performed By: #### L IP, CDP, CP, YVETTE ####[address] [place] [address] Anion gap 3 molar conc 9 mmol/L Normal 9-17 [facility] Comment on above: Performed By: #### L IP, CDP, CP, YVETTE ####[address] [place] [address] AST enzyme act/vol 13 U/L Normal <32 [facility] Comment on above: Performed By: #### L IP, CDP, CP, YVETTE ####[address] [place] [address] Bilirubin Ql (U) 0.27 mg/dL Low 0.3-1.2 [facility] Comment on above: Performed By: #### L IP, CDP, CP, YVETTE ####[address] [place] [address] BUN/CRE Ratio 17 Normal 9-20 [facility] Comment on above: Performed By: #### L IP, CDP, CP, YVETTE ####[address] [place] [address] Calcium mass conc 8.9 mg/dL Normal 8.6-10.4 [facility] Comment on above: Performed By: #### L IP, CDP, CP, YVETTE ####[address] [place] [address] Chloride molar conc 103 mmol/L Normal 98-107 [facility] Comment on above: Performed By: #### L IP, CDP, CP, YVETTE ####[address] [place] [address] CO2 molar conc 27 mmol/L Normal 20-31 [facility] Comment on above: Performed By: #### L IP, CDP, CP, YVETTE ####[address] [place] [address] Creatinine mass conc 0.60 mg/dL Normal 0.50-0.90 [facility] Comment on above: Performed By: #### L IP, CDP, CP, YVETTE ####[address] [place] [address] GFR, Amer >60 Normal >60 [facility] Comment on above: Performed By: #### L IP, CDP, CP, YVETTE ####[address] [place] [address] GFR,non Amer >60 Normal >60 [facility] Comment on above: Performed By: #### L IP, CDP, CP, YVETTE ####[address] [place] [address] Glucose mass conc 89 mg/dL Normal 70-99 [facility] Comment on above: Performed By: #### L IP, CDP, CP, YVETTE ####[address] [place] [address] Potassium molar conc 4.1 mmol/L Normal 3.7-5.3 [facility] Comment on above: Performed By: #### L IP, CDP, CP, YVETTE ####[address] [place] [address] Protein mass conc 7.2 g/dL Normal 6.4-8.3 [facility] Comment on above: Performed By: #### L IP, CDP, CP, YVETTE ####[address] [place] [address] Sodium molar conc 139 mmol/L Normal 135-144 [facility] Comment on above: Performed By: #### L IP, CDP, CP, YVETTE ####[address] [place] [address] Staging: Normal [facility] Comment on above: Result Comment: Stag e 1: Some kidney damage normal GFRStage 2: Mild kidney damage GFR 60-89Stage 3: Moderate kidney damage GFR 30-59Stage 4: Severe kidney damage GFR 15-29Stage 5: Severe kidney damage GFR <15ESRD - chronic treatment by dialysis or transplant Performed By: #### L IP, CDP, CP, YVETTE ####[address] [place] [address] Urea nitrogen mass conc 10 mg/dL Normal 6-20 [facility] Comment on above: Performed By: #### L IP, CDP, CP, YVETTE ####[address] [place] [address] Cult,Urineon 10-09-2018 Cult,Urine Specimen Description .CLEAN CATCH URINE Special Requests NOT REPORTED Culture STREPTOCOCCI, BETA HEMOLYTIC GROUP B 10 to 50,000 CFU/ML Report Status FINAL 10/09/2018 Normal [facility] Comment on above: Performed By: #### C DP ####[facility] [place], [place] [address] #### BMP, HCG ####[address] [place] [address] Lipaseon 10-09-2018 Lipase enzyme act/vol 63 U/L High 13-60 [facility] Comment on above: Performed By: #### L IP, CDP, CP, YVETTE ####[address] [place] [address] UA w/Reflex Cultureon 2017 Acetoacetic Acid,Ur Negative Normal NEG [facility] Comment on above: Performed By: #### U MICAO, UAX ####[address] [place] [address] Bilirubin, SemiQt,Ur Negative Normal NEG [facility] Comment on above: Performed By: #### U MICAO, UAX ####[address] [place] [address] Color YELLOW Normal YEL [facility] Comment on above: Performed By: #### U MICAO, UAX ####[address] [place] [address] Glucose,Semi-qnt,Ur Negative Normal NEG [facility] Comment on above: Performed By: #### U MICAO, UAX ####[address] [place] [address] Hemoglobin, Ur 3+ Abnormal NEG [facility] Comment on above: Performed By: #### U MICAO, UAX ####[address] [place] [address] Leuckocyte Esterase SMALL Abnormal NEG [facility] Comment on above: Performed By: #### U MICAO, UAX ####[address] [place] [address] Nitrite,Ur Negative Normal NEG [facility] Comment on above: Performed By: #### U MICAO, UAX ####[address] [place] [address] PH,Ur 7.5 Normal 5.0-9.0 [facility] Comment on above: Performed By: #### U MICAO, UAX ####[address] [place] [address] Protein, Semi-qnt,Ur Negative Normal NEG [facility] Comment on above: Performed By: #### U MICAO, UAX ####[address] [place] [address] Spec. Placida,Ur 1.010 Normal 1.010-1.020 [facility] Comment on above: Performed By: #### U MICAO, UAX ####[address] [place] [address] Turbidity CLOUDY Abnormal CLEAR [facility] Comment on above: Performed By: #### U MICAO, UAX ####[address] [place] [address] Urobilinogen,Ur Normal Normal NORM [facility] Comment on above: Performed By: #### U MICAO, UAX ####[address] [place] [address] Comment NOT REPORTED Normal [facility] Comment on above: Performed By: #### U MICAO, UAX ####[address] [place] [address] Urinalysis,Microon 8 ----- Normal [facility] Comment on above: Performed By: #### U MICAO, UAX ####[address] [place] [address] Amorphous Sediment 2+ Abnormal NONE [facility] Comment on above: Performed By: #### U MICAO, UAX ####[address] [place] [address] Epithelial cells 2 TO 5 Normal 0-25 [facility] Comment on above: Performed By: #### U MICAO, UAX ####[address] [place] [address] RBC Test strip #/vol (U) 5 TO 10 Normal 0-2 [facility] Comment on above: Performed By: #### U MICAO, UAX ####[address] [place] [address] Urine WBC's 0 TO 2 Normal 0-5 [facility] Comment on above: Performed By: #### U MICAO, UAX ####[address] [place] [address] Bacteria NOT REPORTED Normal NONE [facility] Comment on above: Performed By: #### U MICAO, UAX ####[address] [place] [address] Casts NOT REPORTED Normal [facility] Comment on above: Performed By: #### U MICAO, UAX ####[address] [place] [address] Crystals NOT REPORTED Normal NONE [facility] Comment on above: Performed By: #### U MICAO, UAX ####[address] [place] [address] Epithelial, Renal NOT REPORTED Normal 0 [facility] Comment on above: Performed By: #### U MICAO, UAX ####[address] [place] [address] Mucus Strands NOT REPORTED Normal NONE [facility] Comment on above: Performed By: #### U MICAO, UAX ####[address] [place] [address] Other Observations NOT REPORTED Normal NREQ [facility] Comment on above: Performed By: #### U MICAO, UAX ####[address] [place] [address] Trichomonas NOT REPORTED Normal NONE [facility] Comment on above: Performed By: #### U MICAO, UAX ####[address] [place] [address] Yeast NOT REPORTED Normal NONE [facility] Comment on above: Performed By: #### U MICAO, UAX ####[address] [place] [address] Basic Metabolic Profon 06-13 (cont.) Normal [facility] Comment on above: Result Comment: Aver age GFR for 30-39 years old: 107 mL/min/1.73sq mChronic Kidney Disease: <60 mL/min/1.73sq mKidney failure: <15 mL/min/1.73sq meGFR calculated using average adult body mass. Additional eGFR calculator available at:http://www.[employer]/multiple_crcl_2012.htm Performed By: #### B MP, CDP ####[address] [place] [address] Anion gap 3 molar conc 12 mmol/L Normal 9-17 [facility] Comment on above: Performed By: #### B MP, CDP ####[address] [place] [address] BUN/CRE Ratio 17 Normal 9-20 [facility] Comment on above: Performed By: #### B MP, CDP ####[address] [place] [address] Calcium mass conc 9.1 mg/dL Normal 8.6-10.4 [facility] Comment on above: Performed By: #### B MP, CDP ####[address] [place] [address] Chloride molar conc 103 mmol/L Normal 98-107 [facility] Comment on above: Performed By: #### B MP, CDP ####[address] [place] [address] CO2 molar conc 26 mmol/L Normal 20-31 [facility] [facility] Comment on above: Performed By: #### B MP, CDP ####[address] [place] [address] Creatinine mass conc 0.72 mg/dL Normal 0.50-0.90 [facility] Comment on above: Performed By: #### B MP, CDP ####[address] [place] [address] GFR, Amer >60 Normal >60 [facility] Comment on above: Performed By: #### B MP, CDP ####[address] [place] [address] GFR,non Amer >60 Normal >60 [facility] Comment on above: Performed By: #### B MP, CDP ####[address] [place] [address] Glucose mass conc 98 mg/dL Normal 70-99 [facility] Comment on above: Performed By: #### B MP, CDP ####[address] [place] [address] Potassium molar conc 3.7 mmol/L Normal 3.7-5.3 [facility] Comment on above: Performed By: #### B MP, CDP ####[address] [place] [address] Sodium molar conc 141 mmol/L Normal 135-144 [facility] Comment on above: Performed By: #### B RHIANNA, CDP ####[address] [place] [address] Staging: Normal [facility] Comment on above: Result Comment: Stag e 1: Some kidney damage normal GFRStage 2: Mild kidney damage GFR 60-89Stage 3: Moderate kidney damage GFR 30-59Stage 4: Severe kidney damage GFR 15-29Stage 5: Severe kidney damage GFR <15ESRD - chronic treatment by dialysis or transplant Performed By: #### B RHIANNA, CDP ####[address] [place] [address] Urea nitrogen mass conc 12 mg/dL Normal 6-20 [facility] Comment on above: Performed By: #### B MP, CDP ####[address] [place] [address] CBC with Diffon 06-13-2018 Abs. Basophil <0.03 Normal 0.00-0.20 [facility] Comment on above: Performed By: #### B MP, CDP ####[address] [place] [address] Abs.Imm.Granulocyte <0.03 Normal 0.00-0.30 [facility] Comment on above: Performed By: #### B MP, CDP ####[address] [place] [address] Abs.Neutrophil (Seg) 4.75 k/uL Normal 1.50-8.10 [facility] Comment on above: Performed By: #### B MP, CDP ####[address] [place] [address] Basophils/100 WBC Auto (Bld) 0 % Normal 0-2 [facility] Comment on above: Performed By: #### B MP, CDP ####[address] [place] [address] Eosinophils Auto #/vol (Bld) 0.23 10*3/uL Normal 0.00-0.44 [facility] Comment on above: Performed By: #### B MP, CDP ####[address] [place] [address] Eosinophils/100 WBC Auto (Bld) 2 % Normal 1-4 [facility] Comment on above: Performed By: #### B MP, CDP ####[address] [place] [address] Erythrocyte distribution width Auto Ratio (RBC) 12.9 % Normal 11.8-14.4 [facility] Comment on above: Performed By: #### B MP, CDP ####[address] [place] [address] Hematocrit Auto Volume Fraction (Bld) 38.9 % Normal 36.3-47.1 [facility] Comment on above: Performed By: #### B MP, CDP ####[address] [place] [address] Hemoglobin mass conc (Bld) 12.6 g/dL Normal 11.9-15.1 [facility] Comment on above: Performed By: #### B MP, CDP ####[address] [place] [address] Immature granulocytes #/vol (Bld) 0 % Normal 0 [facility] Comment on above: Performed By: #### B MP, CDP ####[address] [place] [address] Lymphocytes Auto #/vol (Bld) 3.99 10*3/uL High 1.10-3.70 [facility] Comment on above: Performed By: #### B MP, CDP ####[address] [place] [address] Lymphocytes/100 WBC Auto (Bld) 42 % Normal 24-43 [facility] Comment on above: Performed By: #### B MP, CDP ####[address] [place] [address] MCH Auto Entitic mass (RBC) 29.4 pg Normal 25.2-33.5 [facility] Comment on above: Performed By: #### B MP, CDP ####[address] [place] [address] MCHC Auto mass conc (RBC) 32.4 g/dL Normal 28.4-34.8 [facility] Comment on above: Performed By: #### B MP, CDP ####[address] [place] [address] MCV Auto Entitic volume (RBC) 90.7 fL Normal 82.6-102.9 [facility] Comment on above: Performed By: #### B MP, CDP ####[address] [place] [address] Monocytes Auto #/vol (Bld) 0.49 10*3/uL Normal 0.10-1.20 [facility] Comment on above: Performed By: #### B MP, CDP ####[address] [place] [address] Monocytes/100 WBC Auto (Bld) 5 % Normal 3-12 [facility] Comment on above: Performed By: #### B MP, CDP ####[address] [place] [address] Neutrophil (Seg) 51 % Normal 36-65 [facility] Comment on above: Performed By: #### B MP, CDP ####[address] [place] [address] NRBC Automated 0.0 per 100 WBC Normal 0.0 [facility] Comment on above: Performed By: #### B MP, CDP ####[address] [place] [address] Platelet mean volume Auto Entitic volume (Bld) 9.6 fL Normal 8.1-13.5 [facility] Comment on above: Performed By: #### B MP, CDP ####[address] [place] [address] Platelets Auto #/vol (Bld) 224 10*3/uL Normal 138-453 [facility] Comment on above: Performed By: #### B MP, CDP ####[address] [place] [address] RBC Auto #/vol (Bld) 4.29 10*6/uL Normal 3.95-5.11 [facility] Comment on above: Performed By: #### B MP, CDP ####[address] [place] [address] WBC Auto #/vol (Bld) 9.5 10*3/uL Normal 3.5-11.3 [facility] Comment on above: Performed By: #### B MP, CDP ####[address] [place] [address] Auto Diff Performed NOT REPORTED Normal [facility] Comment on above: Performed By: #### B MP, CDP ####[address] [place] [address] Platelets Auto #/vol (Bld) NOT REPORTED Normal [facility] Comment on above: Performed By: #### B MP, CDP ####[address] , [place] [address] RBC morphology finding Nom (Bld) NOT REPORTED Normal [facility] Comment on above: Performed By: #### B MP, CDP ####[facility] [place] , [place] [id number] WBC Morphology NOT REPORTED Normal [facility] Comment on above: Performed By: #### B MP, CDP ####[address] , [place] [id number] CT ABDOMEN PELVIS WO CONTRAS Ton 06-13-2018 CT ABDOMEN PELVIS WO CONTRAST EXAMINATION:CT OF THE ABDOMEN AND PELVIS WITHOUT CONTRAST 06/13/2018 2:24 amTECHNIQUE:CT of the abdomen and pelvis was performed without the administration ofintravenous contrast. Multiplanar reformatted images are provided for review.Dose modulation, iterative reconstruction, and/or weight based adjustment ofthe mA/kV was utilized to reduce the radiation dose to as low as reasonablyachievable.COMP ARISON:None.HISTORY:ORDER ING SYSTEM PROVIDED HISTORY: FLANK PAIN, STONE DISEASE [...] changesin the right lower quadrant.Pelvis: No acute findingsPeritoneum/Retrop eritoneum: No abdominal aortic aneurysm. Evaluation ofvascular structures is limited without intravenous contrast.Bones/Soft Tissues: No acute osseous abnormality is identified.IMPRESSION: 1. No acute findings identified in the abdomen and pelvis.Interpreted by:PAULINE Priceigned by:Aric Landeros MD/3/18Final result Normal [facility] Urinalysis w/ Microon 2017 ----- Normal [facility] Comment on above: Performed By: #### U AMIC ####[address] [place] [address] Acetoacetic Acid,Ur Negative Normal NEG [facility] Comment on above: Performed By: #### U AMIC ####[address] [place] [address] Bacteria 1+ Abnormal NONE [facility] Comment on above: Performed By: #### U AMIC ####[address] [place] [address] Bilirubin, SemiQt,Ur Negative Normal NEG [facility] Comment on above: Performed By: #### U AMIC ####[address] [place] [address] Color YELLOW Normal YEL [facility] Comment on above: Performed By: #### U AMIC ####[address] [place] [address] Epithelial cells 0 TO 2 Normal 0-25 [facility] Comment on above: Performed By: #### U AMIC ####[address] [place] [address] Glucose,Semi-qnt,Ur Negative Normal [facility] Comment on above: Performed By: #### U AMIC ####[address] [place] [address] Hemoglobin, Ur 3+ Abnormal NEG [facility] Comment on above: Performed By: #### U AMIC ####[address] [place] [address] Leuckocyte Esterase TRACE Abnormal NEG [facility] Comment on above: Performed By: #### U AMIC ####[address] [place] [address] Nitrite,Ur Negative Normal NEG [facility] Comment on above: Performed By: #### U AMIC ####[address] [place] [address] PH,Ur 6.0 Normal 5.0-9.0 [facility] Comment on above: Performed By: #### U AMIC ####[address] [place] [address] Protein mass conc Negative Normal NEG [facility] Comment on above: Performed By: #### U AMIC ####[address] [place] [address] RBC Test strip #/vol (U) 50 TO 100 Normal 0-2 [facility] Comment on above: Performed By: #### U AMIC ####[address] [place] [address] Spec. Placida,Ur 1.025 High 1.010-1.020 [facility] Comment on above: Performed By: #### U AMIC ####[address] [place] [address] Turbidity CLEAR Normal CLEAR [facility] Comment on above: Performed By: #### U AMIC ####[address] [place] [address] Urine WBC's 0 TO 2 Normal 0-5 [facility] Comment on above: Performed By: #### U AMIC ####[address] [place] [address] Urobilinogen,Ur Normal Normal NORM [facility] Comment on above: Performed By: #### U AMIC ####[address] [place] [address] Amorphous Sediment NOT REPORTED Normal NONE [facility] Comment on above: Performed By: #### U AMIC ####[address] [place] [address] Casts NOT REPORTED Normal [facility] Comment on above: Performed By: #### U AMIC ####[address] [place] [address] Comment NOT REPORTED Normal [facility] Comment on above: Performed By: #### U AMIC ####[address] [place] [address] Crystals NOT REPORTED Normal NONE [facility] Comment on above: Performed By: #### U AMIC ####[address] [place] [address] Epithelial, Renal NOT REPORTED Normal 0 [facility] Comment on above: Performed By: #### U AMIC ####[address] [place] [address] Mucus Strands NOT REPORTED Normal NONE [facility] Comment on above: Performed By: #### U AMIC ####[address] [place] [address] Other Observations NOT REPORTED Normal NREQ [facility] Comment on above: Performed By: #### U AMIC ####[address] [place] [address] Trichomonas NOT REPORTED Normal NONE [facility] Comment on above: Performed By: #### U AMIC ####[address] [place] [address] Yeast NOT REPORTED Normal NONE [facility] Comment on above: Performed By: #### U AMIC ####[address] [place] [address] APTTon 02-25-2018 aPTT Coag time (Bld) 32.2 s Normal 23.2-34.4 [facility] Comment on above: Result Comment: Perf ormed at [address] [place] [address] Performed By: #### P TT, PT ####[address] [place] [address] Basic Metabolic Profon 02-25 (cont.) Normal [facility] Comment on above: Result Comment: Aver age GFR for 30-39 years old: 107 mL/min/1.73sq mChronic Kidney Disease: <60 mL/min/1.73sq mKidney failure: <15 mL/min/1.73sq meGFR calculated using average adult body mass. Additional eGFR calculator available at:http://www.[employer]/multiple_crcl_2012.htm Performed By: #### C DP ####[address] [address] #### BMP, HCG ####[address] [place] [address] Anion gap 3 molar conc 12 mmol/L Normal 9-17 [facility] Comment on above: Performed By: #### C DP ####[address] [address] #### BMP, HCG ####[address] [place] [address] BUN/CRE Ratio 20 Normal 9-20 [facility] Comment on above: Performed By: #### C DP ####[address] [address] #### BMP, HCG ####[address] [place] [address] Calcium mass conc 9.4 mg/dL Normal 8.6-10.4 [facility] Comment on above: Performed By: #### C DP ####[address] [address] #### BMP, HCG ####[address] [place] [address] Chloride molar conc 101 mmol/L Normal 98-107 [facility] Comment on above: Performed By: #### C DP ####[address] [address] #### BMP, HCG ####[address] [place] [address] CO2 molar conc 28 mmol/L Normal 20-31 [facility] Comment on above: Performed By: #### C DP ####[address] [address] #### BMP, HCG ####[address] [place] [address] Creatinine mass conc 0.59 mg/dL Normal 0.50-0.90 [facility] Comment on above: Performed By: #### C DP ####[address] [address] #### BMP, HCG ####[address] [place] [address] GFR, Amer >60 Normal >60 [facility] Comment on above: Performed By: #### C DP ####[address] [address] #### BMP, HCG ####[address] [place] [address] GFR,non Amer >60 Normal >60 [facility] Comment on above: Performed By: #### C DP ####[address] [address] #### BMP, HCG ####[address] [place] [address] Glucose mass conc 119 mg/dL High 70-99 [facility] Comment on above: Performed By: #### C DP ####[address] [address] #### BMP, HCG ####[address] [place] [address] Potassium molar conc 3.7 mmol/L Normal 3.7-5.3 [facility] Comment on above: Performed By: #### C DP ####[address] [address] #### BMP, HCG ####[address] [place] [address] Sodium molar conc 141 mmol/L Normal 135-144 [facility] Comment on above: Performed By: #### C DP ####[address] [address] #### BMP, HCG ####[address] [place] [address] Staging: Normal [facility] Comment on above: Result Comment: Stag e 1: Some kidney damage normal GFRStage 2: Mild kidney damage GFR 60-89Stage 3: Moderate kidney damage GFR 30-59Stage 4: Severe kidney damage GFR 15-29Stage 5: Severe kidney damage GFR <15ESRD - chronic treatment by dialysis or transplantPerformed at [address] [place] [address] Performed By: #### C DP ####[address] [address] #### BMP, HCG ####[address] [place] [address] Urea nitrogen mass conc 12 mg/dL Normal 6-20 [facility] Comment on above: Performed By: #### C DP ####[address] [address] #### BMP, HCG ####[address] [place] [address] CBC with Diffon 05-18-2018 Abs. Basophil 0.03 k/uL Normal 0.00-0.20 [facility] Comment on above: Performed By: #### C DP ####[address] [address] #### BMP, HCG ####[address] [place] [address] Abs.Imm.Granulocyte 0.03 k/uL Normal 0.00-0.30 [facility] Comment on above: Result Comment: Perf ormed at [address] [address] Performed By: #### C DP ####[address] [address] #### BMP, HCG ####[address] [place] [address] Abs.Neutrophil (Seg) 5.34 k/uL Normal 1.50-8.10 [facility] Comment on above: Performed By: #### C DP ####[address] [address] #### BMP, HCG ####[address] [place] [address] Basophils/100 WBC Auto (Bld) 0 % Normal 0-2 [facility] Comment on above: Performed By: #### C DP ####[address] [address] #### BMP, HCG ####[address] [place] [address] Eosinophils Auto #/vol (Bld) 0.21 10*3/uL Normal 0.00-0.44 [facility] Comment on above: Performed By: #### C DP ####[address] [address] #### BMP, HCG ####[address] [place] [address] Eosinophils/100 WBC Auto (Bld) 2 % Normal 1-4 [facility] Comment on above: Performed By: #### C DP ####[address] [address] #### BMP, HCG ####[address] [place] [address] Erythrocyte distribution width Auto Ratio (RBC) 12.3 % Normal 11.8-14.4 [facility] Comment on above: Performed By: #### C DP ####[address] [address] #### BMP, HCG ####[address] [place] [id number] Hematocrit Auto Volume Fraction (Bld) 41.4 % Normal 36.3-47.1 [facility] Comment on above: Performed By: #### C DP ####[address] [address] #### BMP, HCG ####[address] [place] [address] Hemoglobin mass conc (Bld) 14.0 g/dL Normal 11.9-15.1 [facility] Comment on above: Performed By: #### C DP ####[address] [address] #### BMP, HCG ####[address] [place] [address] Immature granulocytes #/vol (Bld) 0 % Normal 0 [facility] Comment on above: Performed By: #### C DP ####[address] [address] #### BMP, HCG ####[address] [place] [address] Lymphocytes Auto #/vol (Bld) 3.84 10*3/uL High 1.10-3.70 [facility] Comment on above: Performed By: #### C DP ####[address] [address] #### BMP, HCG ####[address] [place] [address] Lymphocytes/100 WBC Auto (Bld) 38 % Normal 24-43 [facility] Comment on above: Performed By: #### C DP ####[address] [address] #### BMP, HCG ####[address] [place] [id number] MCH Auto Entitic mass (RBC) 29.5 pg Normal 25.2-33.5 [facility] Comment on above: Performed By: #### C DP ####[address] [address] #### BMP, HCG ####[address] [place] [id number] MCHC Auto mass conc (RBC) 33.8 g/dL Normal 28.4-34.8 [facility] Comment on above: Performed By: #### C DP ####[address] [address] #### BMP, HCG ####[address] [place] [address] MCV Auto Entitic volume (RBC) 87.3 fL Normal 82.6-102.9 [facility] Comment on above: Performed By: #### C DP ####[address] [address] #### BMP, HCG ####[address] [place] [address] Monocytes Auto #/vol (Bld) 0.54 10*3/uL Normal 0.10-1.20 [facility] Comment on above: Performed By: #### C DP ####[address] [address] #### BMP, HCG ####[address] [place] [address] Monocytes/100 WBC Auto (Bld) 5 % Normal 3-12 [facility] Comment on above: Performed By: #### C DP ####[address] [address] #### BMP, HCG ####[address] [place] [address] Neutrophil (Seg) 55 % Normal 36-65 [facility] Comment on above: Performed By: #### C DP ####[address] [address] #### BMP, HCG ####[address] [place] [address] NRBC Automated 0.0 per 100 WBC Normal 0.0 [facility] Comment on above: Performed By: #### C DP ####[address] [address] #### BMP, HCG ####[address] [place] [address] Platelet mean volume Auto Entitic volume (Bld) 9.8 fL Normal 8.1-13.5 [facility] Comment on above: Performed By: #### C DP ####[address] [address] #### BMP, HCG ####[address] [place] [address] Platelets Auto #/vol (Bld) 270 10*3/uL Normal 138-453 [facility] Comment on above: Performed By: #### C DP ####[address] [address] #### BMP, HCG ####[address] [place] [address] RBC Auto #/vol (Bld) 4.74 10*6/uL Normal 3.95-5.11 [facility] Comment on above: Performed By: #### C DP ####[address] [address] #### BMP, HCG ####[address] [place] [address] WBC Auto #/vol (Bld) 10.0 10*3/uL Normal 3.5-11.3 [facility] Comment on above: Performed By: #### C DP ####[address] [address] #### BMP, HCG ####[address] [place] [address] Auto Diff Performed NOT REPORTED Normal [facility] Comment on above: Performed By: #### C DP ####[address] [address] #### BMP, HCG ####[address] [place] [address] Platelets Auto #/vol (Bld) NOT REPORTED Normal [facility] Comment on above: Performed By: #### C DP ####[address] [address] #### BMP, HCG ####[address] [place] [address] RBC morphology finding Nom (Bld) NOT REPORTED Normal [facility] Comment on above: Performed By: #### C DP ####[facility] [place] [address] #### BMP, HCG ####[address] [place] [address] WBC Morphology NOT REPORTED Normal [facility] Comment on above: Performed By: #### C DP ####[facility] [place] [address] #### BMP, HCG ####[address] [place] [address] CT ABDOMEN PELVIS WO CONTRAS Ton 02-25-2018 [...] and biliary system: There has been a cholecystectomy..Pancreas : Normal.Adrenals: Normal.Kidneys: There are no kidney stones or ureteral stones. 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 There is no obstruction, colitis or enteritis. The appendix is not identified..Lymph nodes and mesentery: Normal.Vasculature: Normal.Bladder: Normal.Reproductive organs: There has been a hysterectomy.Peritoneum: There is no ascites, free air, abscess or adenopathy..Musculoskelet al structures: No significant abnormality.Other: None.IMPRESSION: Impression: There has been a cholecystectomy..There are no kidney stones or ureteral stones. 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 There is no obstruction, colitis or enteritis. The appendix is not identified..There has been a hysterectomy.There is no ascites, free air, abscess or adenopathy...Electronical ly Signed By: MARTINA GARCÍA on 02/25/2018 21:36Interpreted by:PAULINE Menjivarigned by:Martina García MD02/25/18Final result Normal [facility] HCG Screen, Bloodon 02-26-20 18 HCG Qn Negative Normal NEG [facility] Comment on above: Result Comment: Spec imens with hCG levels near the threshold of the test (25 mIU/mL) may give a negative or indeterminate result. In such cases, another test should be performed with a new specimen in 48-72 hours. If early is suspected clinically in this setting, correlation with quantitative serum b-hCG level is suggested.[facility] has confirmed the use of plasma for this test. This has not been cleared or approved by the U.[place]. Food and Drug Administration. The FDA has determined that such clearance is not necessary.Performed at [address] [place] [address] Performed By: #### C DP ####[facility] [place], [place] [address] #### BMP, HCG ####[address] [place] [address] PTon 02-25-2018 INR Coag RelTime (PPP) 1.0 {INR} Normal 0.9-1.2 [facility] Comment on above: Result Comment: Perf ormed at [address] [place] [address] Performed By: #### P TT, PT ####[address] [place] [address] Prothrombin time (PT) Coag time (PPP) 10.8 s Normal 9.7-12.2 [facility] Comment on above: Performed By: #### P TT, PT ####[address] [place] [address] Urinalysis w/ Microon 2017 ----- Normal [facility] Comment on above: Performed By: #### U AMIC ####[address] [place] [address] Acetoacetic Acid,Ur Negative Normal NEG [facility] Comment on above: Performed By: #### U AMIC ####[address] [place] [address] Amorphous Sediment 2+ Abnormal NONE [facility] Comment on above: Result Comment: Perf ormed at [address] [place] [address] Performed By: #### U AMIC ####[address] [place] [address] Bacteria 1+ Abnormal [facility] Comment on above: Performed By: #### U AMIC ####[address] [place] [address] Bilirubin, SemiQt,Ur Negative Normal NEG [facility] Comment on above: Performed By: #### U AMIC ####[address] [place] [address] Color YELLOW Normal L [facility] Comment on above: Performed By: #### U AMIC ####[address] [place] [address] Epithelial cells 0 TO 2 Normal 0-25 [facility] Comment on above: Performed By: #### U AMIC ####[address] [place] [address] Glucose,Semi-qnt,Ur Negative Normal NEG [facility] Comment on above: Performed By: #### U AMIC ####[address] [place] [address] Hemoglobin, Ur 2+ Abnormal NEG [facility] Comment on above: Performed By: #### U AMIC ####[address] [place] [address] Leuckocyte Esterase TRACE Abnormal NEG [facility] Comment on above: Performed By: #### U AMIC ####[address] [place] [address] Mucus Strands TRACE Abnormal NONE [facility] Comment on above: Performed By: #### U AMIC ####[address] [place] [address] Nitrite,Ur Negative Normal NEG [facility] Comment on above: Performed By: #### U AMIC ####[address] [place] [address] PH,Ur 7.5 Normal 5.0-9.0 [facility] Comment on above: Performed By: #### U AMIC ####[address] [place] [address] Protein mass conc Negative Normal NEG [facility] Comment on above: Performed By: #### U AMIC ####[address] [place] [address] RBC Test strip #/vol (U) 5 TO 10 Normal 0-2 [facility] Comment on above: Performed By: #### U AMIC ####[address] [place] [address] Spec. Placida,Ur 1.010 Normal 1.010-1.020 [facility] Comment on above: Performed By: #### U AMIC ####[address] [place] [address] Turbidity CLEAR Normal CLEAR [facility] Comment on above: Performed By: #### U AMIC ####[address] [place] [address] Urine WBC's 0 TO 2 Normal 0-5 [facility] Comment on above: Performed By: #### U AMIC ####[address] [place] [address] Urobilinogen,Ur Normal Normal NORM [facility] Comment on above: Performed By: #### U AMIC ####[address] [place] [address] Casts NOT REPORTED Normal [facility] Comment on above: Performed By: #### U AMIC ####[address] [place] [address] Comment NOT REPORTED Normal [facility] Comment on above: Performed By: #### U AMIC ####[address] [place] [address] Crystals NOT REPORTED Normal NONE [facility] Comment on above: Performed By: #### U AMIC ####[address] [place] [address] Epithelial, Renal NOT REPORTED Normal 0 [facility] Comment on above: Performed By: #### U AMIC ####[address] [place] [address] Other Observations NOT REPORTED Normal NREQ [facility] Comment on above: Performed By: #### U AMIC ####[address] [place] [address] Trichomonas NOT REPORTED Normal NONE [facility] Comment on above: Performed By: #### U AMIC ####[address] [place] [address] Yeast NOT REPORTED Normal NONE [facility] Comment on above: Performed By: #### U AMIC ####[address] [place] [address] Otolaryngology Office/Clinic Noteon 2017 Otolaryngology Office/Clinic Note Chief Complaint Patient states I am having a follow up from ear surgery.'History of [...] available. No qualifying data available.Electronically signed by _Zhane Tamez MD 12/30/17 16:02 EDT Normal [facility] Otolaryngology Office/Clinic Noteon 11-18-2017 Otolaryngology Office/Clinic Note Chief Complaint post-opHistory of Present Illness Elvi is now 1 month status [...] available. No qualifying data available.Electronically signed by _Zhane Tamez MD 11/18/17 16:31 EST Normal [facility] Otolaryngology Office/Clinic Note Patient seen for dispense of bilateral swim plugs. Both plugs display good fit in the ears, and patient confirmed comfort of fit. Proper insertion/removal was practiced successfully. Plan: Return if issues arise regarding swim plugs. N/C, swim plugs paid at last appointment.Electronicall y signed by _Rima Muñoz 11/18/17 16:04 EST Normal [facility] Otolaryngology Office/Clinic Noteon 01-18-2018 Otolaryngology Office/Clinic Note Patient seen for bilateral earmold impressions for swim plugs. Earmold impressions made without incident and otoscopy prior to and following impressions was unremarkable. Patient chose purple, pink, and green swirl color for plugs. Plan: Return in 3 weeks for dispense, prior to follow-up appointment with Dr. Zhane Tamez. $70.Electronically signed by _Kyara RoqueRima 10/28/17 16:31 EST Normal [facility] Otolaryngology Office/Clinic Note Chief Complaint post-opHistory of Present Illness Snoozed 2 weeks status post removal [...] available. No qualifying data available.Electronically signed by _Zhane Tamez MD 10/28/17 15:41 EST Normal [facility] OPERATIVE REPORTon 8 OPERATIVE REPORT [address] [address] OPERATIVE REPORTPATIENT NAME: ELVI MOORE : 1980MED REC NO: [id number] ROOM:ACCOUNT NO: [id number] ADMIT DATE: 10/14/2017PROVIDER: Zhane TamezDATE OF PROCEDURE: [...] the procedure well.ZHANE TAMEZD: 10/14/2017 14:55:29 [id number]#: [id number] Doc#: [id number]: [facility] OPERATIVE REPORT [address] [address] OPERATIVE REPORTPATIENT NAME: ELVI MOORE : 1980MED REC NO: [id number] ROOM:ACCOUNT NO: [id number] ADMIT DATE: 10/14/2017PROVIDER: Zhane TamezDATE OF PROCEDURE: 10/14/2017PREOPERATIVE DIAGNOSIS: Granulation tissue, TM perf with retained silveroxide myringotomy tube.POSTOPERATIVE DIAGNOSIS: Granulation tissue, TM perf with retained silveroxide myringotomy tube.OPERATIVE PROCEDURES: Removal of retained tube, debridement of granulationtissue, and placement of paper patch myringoplasty.ANESTHESIA: General.ANESTHESIOLOGIST: Susanna Frost, CRNASURGEON: hZane Tamez, MDCOMPLICATIONS: None.FINDINGS: Retained tube in the [...] having tolerated theprocedure well.ZHANE TAMEZD: 10/14/2017 10:15:44 [id number]#: [id number] Doc#: [id number]: [facility] Otolaryngology Office/Clinic Noteon 12-07-2017 Otolaryngology Office/Clinic Note Chief Complaint left ear [...] available. No qualifying data available.Electronically signed by _Zhane Tamez MD 09/16/17 16:06 EST Normal [facility] Otolaryngology Consultationo n 04-20-2017 Otolaryngology Consultation Chief [...] Results No qualifying data available.Electronically signed by _Zhane Tamez MD 04/20/17 16:51 EDT Normal [facility] Vital Signs Date Time Vital Sign Value Performing Clinician Kvng roberto 09-13-2023 12:04-0500 Blood Pressure Location Diana HAWKINS [facility] 09-13-2023 12:04-0500 Diastolic blood pressure 74 mm[Hg] Diana HAWKINS [facility] 09-13-2023 12:04-0500 Heart rate 64 /min Diana HAWKINS [facility] 09-13-2023 12:04-0500 Respiratory rate 16 /min Diana HAWKINS [facility] 09-13-2023 12:04-0500 Systolic blood pressure 128 mm[Hg] Diana HAWKINS [facility] 05-28-2023 11:12-0400 Body temperature 98 [degF] MD Arleth Acharya Work Phone: [facility] 05-28-2023 11:12-0400 Body weight 70.76 kg MD Arleth Acharya Work Phone: [facility] 05-28-2023 11:12-0400 Diastolic blood pressure 94 mm[Hg] MD Arleth Acharya Work Phone: [facility] 05-28-2023 11:12-0400 Heart rate 88 /min MD Arleth Acharya Work Phone: [facility] 05-28-2023 11:12-0400 Respiratory rate 16 /min MD Arleth Acharya Work Phone: [facility] 05-28-2023 11:12-0400 SaO2% (BldA) [Mass fraction] 98 % MD Arleth Acharya Work Phone: [facility] 05-28-2023 11:12-0400 Systolic blood pressure 131 mm[Hg] MD Arleth Acharya Work Phone: [facility] 05-28-2023 11:00-0400 Body height 167.64 cm MD Arleth Acharya Work Phone: [facility] 06-29-2022 09:25-0400 Blood Pressure Location Diana HAWKINS [facility] 06-29-2022 09:25-0400 Diastolic blood pressure 84 mm[Hg] Diana HAWKINS [facility] 06-29-2022 09:25-0400 Heart rate 84 /min Diana HAWKINS [facility] 06-29-2022 09:25-0400 Respiratory rate 16 /min Diana HAWKINS [facility] 06-29-2022 09:25-0400 Systolic blood pressure 115 mm[Hg] Diana HAWKINS [facility] Encounters Encounter Date Encounter Type Care Provider Facility Start: 10-19-2023 ambulatory Diana Bairdi ty:[facility] Start: 09-20-2023 ambulatory Diana HAWKINS [facility] Start: 09-16-2023 ambulatory Diana Bairdi ty:[id number] Start: 09-13-2023 End: 09-14-2023 ambulatory Arleth Acharya [facility] Start: 09-13-2023 End: 09-13-2023 Patient encounter procedure Diana HAWKINS [facility] [place] Start: 08-19-2023 ambulatory [facility] Start: 07-20-2023 End: 07-21-2023 ambulatory [facility] Start: 07-20-2023 End: 07-20-2023 ambulatory [facility] Start: 06-28-2023 ambulatory Jany Demboske Facility:[facility] Start: 06-01-2023 End: 06-01-2023 ambulatory [facility] Start: 05-28-2023 End: 05-28-2023 ambulatory MD Arleth Acharya Work Phone: [facility] Work Phone: Start: 05-28-2023 End: 05-28-2023 Registered Recurring MD Arleth Acharya Work Phone: [facility] Work Phone: Start: 05-04-2023 ambulatory [facility] Start: 04-28-2023 End: 04-28-2023 ambulatory [facility] Start: 04-15-2023 ambulatory [facility] Start: 03-17-2023 ambulatory RUKHSANA MILLER [facility] Start: 02-18-2023 ambulatory RUKHSAAN MILLER [facility] Start: 02-11-2023 End: 02-12-2023 ambulatory [facility] Start: 02-08-2023 ambulatory [facility] Start: 01-25-2023 End: 01-25-2023 ambulatory GENNA HEATON Facility: Start: 01-21-2023 End: 01-22-[address] ARLETH ACHARYA . Facility:[facility] Start: 01-11-2023 ambulatory Diana HAWKINS Facili ty:[facility] Start: 01-08-2023 ambulatory RUKHSANA MILLER [facility] Start: 01-04-2023 End: 01-05-2023 ambulatory Diana HAWKINS Facility:[facility] Start: 01-04-2023 End: 01-04-2023 Patient encounter procedure Diana Wolfgang ROSS [facility] Start: 12-24-2022 ambulatory [facility] Start: 12-10-2022 End: 12-11-2022 ambulatory [facility] Start: 12-10-2022 End: 12-10-2022 ambulatory [facility] Start: 11-24-2022 ambulatory [facility] Start: 11-20-2022 End: 11-21-2022 ambulatory JORDEN D. [facility] Start: 11-03-[address] [facility] Start: 10-21-2022 End: 10-21-2022 [facility]: 10-20-2022 End: 10-20-2022 ambulatory JORDEN Holt [facility] Start: 10-13-2022 End: 10-13-2022 Emergency department patient visit DUSTY WOMACK [facility] Start: 10-10-[address] ARLETH ACHARYA . Facili ty:[facility] Start: 10-06-2022 End: 10-06-[address] ARLETH ACHARYA . Facility:[facility] Start: 09-30-2022 End: 10-01-[address] ARLETH ACHARYA . Facility:[facility] Start: 09-21-2022 End: 09-21-[address] ARLETH ACHARYA . Facility:[facility] Start: 08-27-2022 Encounter for preprocedural laboratory examination DR DIANA HAWKINS . [facility] Start: 08-27-2022 End: 08-27-[address] [...] End: 07-21-[address] DIANA HAWKINS . Facility: Start: 07-10-2022 End: 07-11-[address] DIANA HAWKINS . Facility:[facility] Start: 06-29-2022 End: 06-29-2022 Patient encounter procedure Diana HAWKINS [facility] Start: 06-11-[address] Facility :[facility] Start: 06-09-2022 End: 06-11-[address] Facility:[facility] Start: 06-03-2022 End: 06-03-2022 Emergency department patient visit ARLETH ACHARYA Facility:[facility] Start: 06-01-2022 End: 06-01-2022 Evaluation and management of inpatient Kevin Lane Facility:[facility] Start: 05-26-2022 End: 05-27-[address] Facility:[facility] Start: 05-26-2022 End: 05-27-2022 Encounter for preprocedural laboratory examination Kevin Lane Facility:[facility] Start: 05-16-2022 ambulatory NICK YOO Facility: Start: 05-01-2022 End: 05-02-2022 ambulatory NICK YOO Facility: Start: 04-29-2022 End: 04-29-2022 ambulatory ENEDINA IVEY . Facility: Start: 04-16-2022 End: 04-17-[address] ARLETH ACHARYA . Facility: Start: 04-07-2022 End: 04-08-[address] Facility:[facility] Start: 03-24-2022 End: 03-25-2022 ambulatory REFERRED SELF Facility:[facility] Start: 02-12-2022 End: 02-13-2022 ambulatory Kevin Nassaring Facility:[facility] Start: 01-09-2022 End: 01-10-2022 ambulatory REFERRED SELF Facility:[facility] Start: 12-26-2021 End: 12-27-2021 ambulatory REFERRED SELF Facility:[facility] Start: 12-09-2021 End: 12-10-2021 ambulatory REFERRED SELF Facility:[facility] Start: 10-30-2021 End: 10-31-2021 ambulatory Kevin Nassaring Facility:[facility] Start: 10-11-2021 End: 11-11-[address] Facility:[facility] Start: 10-07-2021 End: 10-08-2021 ambulatory Kevin Geocing Facility:[facility] Start: 10-06-2021 End: 10-11-2021 ambulatory Kevin Gehling Facility:[facility] Start: 08-12-2021 End: 08-13-2021 ambulatory REFERRED SELF Facility:[facility] Start: 10-09-2018 End: 10-09-2018 Emergency department patient visit [facility] Start: 06-13-2018 End: 06-13-2018 Emergency department patient visit [facility] Start: 02-25-2018 End: 02-26-2018 Emergency department patient visit [facility] Start: 2017 End: 12-31-2017 Ambulatory ZHANE TAMEZ Facility[facility] Start: 11-18-2017 End: 11-19-2017 Ambulatory ZHANE TAMEZ Facility:[facility] Start: 10-28-2017 End: 10-29-2017 Ambulatory Rima Sparrow Facility:[facility] Start: 10-14-2017 End: 10-15-2017 Ambulatory ZHANE TAMEZ [facility] Start: 09-16-2017 End: 09-17-2017 Ambulatory ZHANE W TAMEZ Facility:[facility] Start: 06-24-2017 Ambulatory ZHANE W TAMEZ Facility :[facility] Start: 04-20-2017 End: 04-21-2017 Ambulatory ZHANE W TAMEZ Facility:[facility] Procedures Date Procedure Procedure Detail Performing Clinician Start: 08-27-2022 Cystoscopic removal of ureteric stent Diana HAWKINS Start: 07-23-2022 Cystoscopic insertio n of ureteric stent Diana HAWKINS Start: 10-07-2021 Antibody screen Kevin Rameyanyi Comment on above: Performed By: #### [id number] #### [address] Start: 10-09-2018 Ct abdomen & pelvis w/o contrast material ZHANE TAMEZ Start: 10-09-2018 Assay of amylase ZHANE N IELSEN Start: 10-09-2018 Assay of lipase ZHANE NI ELSEN Start: 10-09-2018 Blood count complete auto&auto difrntl wbc ZHANE TAMEZ Start: 10-09-2018 Comprehensive metabo lic panel ZHANE TAMEZ Start: 10-09-2018 Culture bacterial quanttative colony count urine ZHANE TAMEZ Start: 10-09-2018 Microscopic urinalysis ZHANE TAMEZ Start: 10-09-2018 URINE RT REFLEX TO CULTURE ZHANE TAMEZ Start: 06-13-2018 Ct abdomen & pelvis w/o contrast material ZHANE TAMEZ Start: 06-13-2018 Urnls dip stick/tabl et reagent auto microscopy ZHANE TAMEZ Start: 06-13-2018 Basic metabolic pane l calcium total ZHANE TAMEZ Start: 06-13-2018 Blood count complete auto&auto difrntl wbc ZHANE TAMEZ Start: 02-26-2018 Ct abdomen & pelvis w/o contrast material ZHANE TAMEZ Start: 02-25-2018 Basic metabolic pane l calcium total ZHANE TAMEZ Start: 02-25-2018 Blood count complete auto&auto difrntl wbc ZHANE TAMEZ Start: 02-25-2018 Gonadotropin chorion ic qualitative ZHANE TAMEZ Start: 02-25-2018 Prothrombin time ZHANE N IELSEN Start: 02-25-2018 Thromboplastin time partial plasma/whole blood ZHANE TAMEZ Start: 02-25-2018 Urnls dip stick/tabl et reagent auto microscopy ZHANE TAMEZ Start: 10-14-2017 ASSESS ZHANE MATHIS EN Start: 10-14-2017 BEDREST ZHANE MATHIS EN Start: 10-14-2017 Continuous pulse oximetry ZHANE TAMEZ Start: 10-14-2017 INITIATE OXYGEN THER APY PROTOCOL ZHANE ELLERELSEN Start: 10-14-2017 NEURO/VASCULAR CHECKS E AIDEN TAMEZ Start: 10-14-2017 NOTIFY PHYSICIAN (SPECIFY) ZHANE TAMEZ Start: 10-14-2017 NURSING COMMUNICATION E AIDEN TAMEZ Start: 10-14-2017 VITAL SIGNS ZHANE MATHIS EN Start: 10-14-2017 INITIATE OXYGEN THER APY PROTOCOL ZHANE TAMEZ Start: 10-14-2017 NURSING COMMUNICATION E AIDEN TAMEZ Start: 10-14-2017 BEDREST ZHANE MATHIS EN Start: 10-14-2017 NOTIFY PHYSICIAN (SPECIFY) ZHANE TAMEZ Start: 10-14-2017 VITAL SIGNS ZHANE MATHIS EN Start: 10-14-2017 DISCHARGE PATIENT ZHANE TAMEZ Start: 10-14-2017 INSERT PERIPHERAL IV ALEJANDRO TAMEZ Appendectomy Diana HAWKINS Arthroplasty of knee Diana HAWKINS Arthroscopy of knee Diana HAWKINS Bypass of stomach Diana GRIMES Cholecystectomy Diana ALVARADO Hysterectomy Diana HAWKINS Implantation of temp orary spinal cord stimulator Diana HAWKINS Tonsillectomy Diana HAWKINS Plan of Treatment Date Care Activity Detail Author Start: 05-28-2023 [facility] Iron binding capacit y [Mass/volume] in Serum or Plasma [facility] Iron saturation [Mas s Fraction] in Serum or Plasma [facility] Immunizations Immunization Date Immunization Notes Care Provider Fa cili 10-08-2021 SARS-CoV-2 (COVID-19 ) mRNA BNT-162b2 vax Dianaatul HAWKINS [facility] 01-30-2021 SARS-CoV-2 (COVID-19 ) mRNA BNT-162b2 vax Dianaatul HAWKINS [facility] 01-09-2021 SARS-CoV-2 (COVID-19 ) mRNA BNT-162b2 vax Dianaatul HAWKINS [facility] 07-11-2020 influenza virus vacc ine, unspecified formulation Diana HAWKINS [facility] 07-03-2020 influenza virus vacc ine, unspecified formulation Diana HAWKINS [facility] 07-18-2019 influenza virus vacc ine, unspecified formulation Diana HAWKINS [facility] 07-08-2018 influenza virus vacc ine, unspecified formulation Dianaatul HAWKINS [facility] 01-01-2016 pneumococcal polysaccharide vaccine, 23 valent Diana HAWKINS [facility] 09-17-2013 influenza virus vacc ine, unspecified formulation Diana HAWKINS [facility] 07-10-2011 tetanus toxoid, redu demar diphtheria toxoid, and acellular pertussis vaccine, adsorbed Diana HAWKINS [facility] Payers Date Payer Category Payer Unknown [id number] 2017 Self-pay 2017 Unknown 2012 Unknown [id number] 2012 Unknown [id number] 1981 Unknown [id number] 2.16.8 40.1.618779.3.579.2.173 1980 Unknown [id number] 2.16.8 40.1.832118.3.579.2.173 1981 Unknown [id number] 2.16.8 40.1.349596.3.579.2.173 1981 Unknown [id number] 2.16.8 40.1.886204.3.579.2.173 1981 Unknown [id number] 2.16.8 40.1.821642.3.579.2.647 1981 Unknown [id number] 2.16.8 40.1.954906.3.579.2.647 1981 Unknown [id number] 2.16.8 40.1.584913.3.579.2.647 1981 Unknown [id number] .16.8 40.1.733993.3.579.2.647 1981 Unknown [id number] 2.16.8 40.1.762464.3.579.2.647 1981 Unknown [id number] 2.16.8 40.1.102369.3.579.2.647 1981 Unknown [id number] .16.8 40.1.326331.3.579.2.647 1981 Unknown [id number] .16.8 40.1.461290.3.579.2.647 1981 Unknown [id number] .16.8 40.1.999387.3.579.2.647 1981 Unknown [id number] 2.16.8 40.1.938687.3.579.2.647 1981 Unknown [id number] .16.8 40.1.705774.3.579.2.647 1981 Unknown [id number] 2.16.8 40.1.790743.3.579.2.647 1981 Unknown [id number] 2.16.8 40.1.149071.3.579.2.647 1981 Unknown [id number] 2.16.8 40.1.649807.3.579.2.647 1981 Unknown [id number] 2.16.8 40.1.611332.3.579.2.647 1981 Unknown [id number] 2.16.8 40.1.796996.3.579.2.647 1981 Unknown [id number] 2.16.84 0.1.867472.3.579.2.593 1981 Unknown [id number] 2.16.84 0.1.331719.3.579.2.593 1981 Unknown [id number] 2.16.84 0.1.958564.3.579.2.593 1981 Unknown [id number] 2.16.84 0.1.895066.3.579.2.593 1981 Unknown [id number] 2.16.84 0.1.181162.3.579.2.593 1981 Unknown [id number] 2.16.84 0.1.051650.3.579.2.593 1981 Unknown [id number] 2.16.84 0.1.303266.3.579.2.593 1981 Unknown [id number] 2.16.84 0.1.835179.3.579.2.593 1981 Unknown [id number] 2.16.84 0.1.489654.3.579.2.593 1981 Unknown [id number] 2.16.84 0.1.701118.3.579.2.593 1981 Unknown [id number] 2.16.84 0.1.262399.3.579.2.593 1981 Unknown [id number] 2.16.84 0.1.219558.3.579.2.593 1981 Unknown [id number] 2.16.84 0.1.490509.3.579.2.593 1981 Unknown [id number] 2.16.84 0.1.167073.3.579.2.593 1981 Unknown [id number] 2.16.84 0.1.063160.3.579.2.593 1981 Unknown [id number] 2.16.84 0.1.031325.3.579.2.593 1981 Unknown [id number] 2.16.84 0.1.574023.3.579.2.593 1981 Unknown [id number] 2.16.84 0.1.412430.3.579.2.593 1981 Unknown [id number] 2.16.8 40.1.559741.3.579.2.727 1981 Unknown [id number] 2.16.8 40.1.481316.3.579.2.727 1981 Unknown [id number] 2.16.8 40.1.604217.3.579.2.727 1981 Unknown [id number] 2.16.8 40.1.776416.3.579.2.727 1959 Self-pay [id number] 2.16.8 40.1.766741.3.579.2.531 Social History Date Type Detail Facility Start: 06-29-2022 End: 09-13-2023 Tobacco smoking status Ex-smoker (finding) [facility] Sex Assigned At Female [facility] Start: 1980 Sex Assigned At Female F [facility] Tobacco smoking status Never [facility] Functional Status Date Assessment Result Facility 09-13-2023 Functional Status N/A [facility] 06-29-2022 Functional Status N/A [facility] Clinical Notes 06-16-2022 to 09-13-2023 Note [...] from Dr Acharya due to kidney stone. [facility] ER 08/11/23 KUB & CT 08/11/23 Dr Acharya prescribed Promethazine & Cipro 500mg BID [id number]. [facility] ER 09/08/23 CC: Lt Flank Pain BUN 14 Crea 0.66 eGFR >90 CT ap w/o - small stone Lt Kidney 4-5mm [facility], July & [facility]. They are [...] Acharya prescribed Promethazine and Cipro 500mg bid [id number]. Reports Dr. Acharya also started her on [...] ongoing for 1month (more content not included)... [facility] Comment on above: Result Comment: Elec tronically Signed By: Diana HAWKINS MD\.br\Date and Time Signed: 09/13/23 13:02 EST\.br\Electronically Co-Signed By: Kandice Hardy.br\Date and Time Co-Signed: 09/13/23 12:56 EST 09-13-2023 [...] including vitamins, herbs, eye drops, creams, and otha-vuj-qkwnsxc medicines. Any problems you or family members [...] provider tells you to take them. Taking drzl-bqc-xgmulia medicines, vitamins, herbs, and supplements. Tests You [...] Follow these instructions at home: Medicines Take ytbk-qio-xrkuepg and prescription medicines only as told by [...] provider. Document Revised: 06/10/2022 Document Reviewed: 05/09/2021 [employer] Patient Education 2022 [employer]. 09/13/2023 12:55:19 Hematuria, Adult Hematuria, Adult Hematuria [...] Follow these instructions at home: Medicines Take txtu-ybo-qjeafrb and prescription medicines only as told by [...] or the blood stops without treatment. Take fsik-ucy-dqdwzuw and prescription medicines only as told by your health care provider. Drink enough fluid to keep your urine pale yellow. This information is not intended to replace advice given to you by your health care provider. Make sure you discuss any questions you have with your health care provider. Document Revised: 05/28/2021 Document Reviewed: 05/28/2021 [employer] Patient Education 2022 [employer]. Follow Up Care 08/20/2023 11:43:21 With:ROSS GENTILE, Diana Goss, URL Address: [facility] [address] [place] [address]- [phone] When: Unknown Comments:sched cysto [facility] 09-13-2023 Note Urology Cystoscopy Cystoscopy is [...] including vitamins, herbs, eye drops, creams, and yfzo-ctf-bswxhxr medicines. ? Any problems you or family [...] tells you to take them. ? Taking ptsd-mec-vfwqqyi medicines, vitamins, herbs, and supplements. Tests You [...] these instructions at home: Medicines ? Take gcas-zcs-gdtodlr and prescription medicines only as told by [...] the department th (more content not included)... [facility] 08-19-2023 Note Pain Medicine Medical [address] [address] Subjective Patient ID: Elvi Moore is a [...] retention loop lost. 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 Do not start before August 20, 2023. - HYDROcodone-acetaminophen ([place]) 5-325 mg tablet; Take 1 tablet by mouth if needed in the morning and at bedtime for severe pain (8-10 pain score). Do not start before September 19, 2023. Other chronic postprocedural pain - HYDROcodone-acetaminophen ([place]) 5-325 mg tablet; Take 1 tablet by mouth if needed in the morning and at bedtime for severe pain (8-10 pain score). Do not start before August 20, 2023. - HYDROcodone-acetaminophen ([place]) 5-325 mg tablet; Take 1 tablet by [...] to explain the condition. PLAN: 1. Refill [place] 5/325mg BID PRN. Okay to fill on fill date 2. Patient instructed to contact us should she receive or prior to filling any additional opioid medications. 3. MAPS/OARRS pulled and reviewed. 4. Lumbar xrays reviewed with patient and reassured of proper lead placement and no migration issues. Continue optimization of neurostimulation 5. RTC in 6-8 weeks with SUPERVISOR OF RESEARCH for med check All questions are answered, [...] condition which requires (more content not included)... [facility] 07-20-2023 Note Pain Medicine Medical [address] [address] Subjective Patient ID: Elvi Moore is a [...] worse. At her last appointment on 06/01/2023, [employer] rep was at bed side and changed her settings. However, the patient feels this made it worse and changed her stimulator back to her original settings. Of note, patient sent a message on 07/07/2023 saying the SCS took away the martinez pain, but that she still has significant knee pain. We provided her with the contact number for the [employer] Rep. Patient has repeatedly called the number we provided, but has still not been able to get a hold of the [employer] rep. Pain Medications: [place] 5-325 BID. Pain relief lasts around 6 [...] from the pro (more content not included)... [facility] 06-01-2023 Note Attestation signed by Arjun Miner MD at 06/03/2023 12:16 PM I saw and evaluated the patient, participating in the holloway portions of the service. I reviewed the resident???s note. I agree with the resident???s findings and plan. Arjun [place]er [place] [address] Subjective Patient ID: Elvi Moore is a [...] working well. PLAN: 1. DRG stimulator implanted ([employer]): rep at bed side, changing settings to further optimize pain control 2. Slowly titrated down on requirment of norco 3. Medication: continue current script of norco 5/325. 4. Continue lumbar and core strengthening 5. RTC 4 [facility] 05-04-2023 Note Attestation signed by [...] type 1 of left lower extremity HYDROcodone-acetaminophen ([place]) 5-325 mg tablet 2. History of total knee arthroplasty, left 3. Morbid obesity (CMS/HCC) 4. Other chronic postprocedural pain 5. Complex regional pain syndrome type 1 of left lower extremity HYDROcodone-acetaminophen ([place]) 5-325 mg tablet chronic, uncontrolled, awaiting DRG stimulator implant 6. Presence of neurostimulator [place] [address] Subjective Patient ID: Elvi Moore is a [...] DRG. She is currently spacing out her [place] 5/325 every 6 hours compared to every 4 hours due to the incisional pain. Discussed chronic pain, medication use, treatment goals. Medication risk and benefits discussed. The Spine Diagram and Test results were used to explain the condition. PLAN: 1. Remove sutures today of incision site. 2. Intervention: DRG stimulator implanted ([place]) , have patient reach out to [facility] for any further 3. Medication: continue current script of norco 5/325. Patient scheduled for a refill 05/19/2023. Patient was instructed to take more of her norco on the current script 4. Continue lumbar and core strengthening 5. RTC [facility] 04-28-2023 Note No concerns as per c all back guidelines [facility] 04-28-2023 Note Patient: Elvi tilley Procedure Summary Date: 04/28/23 Room / Location: [facility] OPERATING ROOM 04 / [facility] Operating Room Anesthesia Start: 0850 [...] per anesthesia protocol. No notable events documented. [facility] 04-28-2023 Note Patient: Elvi tilley Procedure Summary Date: 04/28/23 Room / Location: [facility] OPERATING ROOM 04 / [facility] Operating Room Anesthesia Start: 0850 [...] observation Transport: uneventful Patient condition is: stable [facility] 04-28-2023 Note Airway Date/Time: 04/28/2023 8:58 AM Urgency: elective Airway not difficult General Information and Staff Patient location during procedure: OR Anesthesiologist: Bjorn Charles MD Resident/DEFENSE TRAVEL ADMINISTRATOR/CAA: RL Arreguin Performed: other anesthesia staff Learner [...] by AA student; Dentures to Circ RN [facility] 04-28-2023 Note Patient: Elvi tilley Procedure Information Date/Time: 04/28/23 0930 Procedure: INSERTION, PULSE GENERATOR, SPINAL CORD STIMULATOR - C-Arm, [place] REP NOTIFIED 04/21 JK Location: [facility] OPERATING ROOM 04 / [facility] Operating Room Surgeons: Arjun Miner [...] CAA and medical student. Additional Equipment Requests [facility] 04-23-2023 Note IF YOU ARE GOING [place] AFTER YOUR SURGERY OR PROCEDURE, FOR YOUR SAFETY, YOUR SURGERY WILL BE CANCELLED IF BOTH OF THE FOLLOWING ARE NOT AVAILABLE: An adult driver operator over the age of 18, that can [...] lenses. Do not wear perfume, make-up, nail guyanese, or lotions on the day of your [...] need to make any changes, please call [phone]. Notify your surgeon if you develop any illness such as a cold, cough, fever, sore throat or vomiting between now and your surgery. Thank you for entrusting us with your care. [facility] Surgical Services Team [facility] 03-17-2023 Note Pain Medicine Medical [address] [address] Subjective Patient ID: Elvi Moore is a [...] old female here for follow up after [facility] point psychology evaluation on 12/29 for SCS and is determined a good candidate for SCS trial. She will have DRG trial with [employer]. She states she is mainly concerned about [...] the limited duration of benefit. Currently taking [place] 5-325 mg daily which brings her pain [...] joint movement) Y (more content not included)... [facility] 03-05-2023 Note Subjective Patient ID: Elvi Moore is a 42 y.o. female. Patient called requesting refill of [place]. She underwent successful SCS-DRG trial and awaiting permanent implant PA. PDMP reviewed and last fill on 01/31/23. Will provide 2 week rx and further refill will require office visit. Assessment/Plan Diagnoses and all orders for this visit: Complex regional pain syndrome type 1 of left lower extremity [facility] 02-18-2023 [place] [address] Subjective Patient ID: Elvi Moore is a [...] trial. She will have DRG trial with [employer]. She states she is mainly concerned about [...] the limited duration of benefit. Currently taking [place] 5-325 mg daily which brings her pain [...] no other diagn (more content not included)... [facility] 02-11-2023 Note Patient: Elvi tilley [...] Other Desonide Toradol [Ketorolac] Unknown Meperidine Rash DEPARTMENT ADMINISTRATOR/Current Medications: (Not in a hospital admission) Current Outpatient Medications Medication Sig Dispense Refill calcium carbonate 600 mg calcium (1,500 mg) tablet 300 mg. cyanocobalamin, vitamin B-12, 1,000 mcg/mL kit Inject as directed every 30 (thirty) days. diclofenac (Voltaren) 1 % topical gel apply 4 grams to affected area ferrous sulfate 325 (65 Fe) MG tablet every 12 (twelve) hours. HYDROcodone-acetaminophen ([place]) 5-325 mg tablet Take 1 tablet by [...] - normal exam Plan ASA 2 Mild [facility] 01-08-2023 Note Pain Medicine Medical [address] [address] Subjective Patient ID: Elvi Moore is a [...] Medication (See MAR), Heat applied, Cold applied ([place] and tylenol) Response to Interventions: [place] works for about 6 hours, ice and heat do not help 42 year old female here for follow up after [facility] evaluation on 12/29 for SCS and is determined a good candidate for SCS trial. She will have DRG trial with [employer]. She states she is mainly concerned about [...] the limited duration of benefit. Currently taking [place] 5-325 mg daily which brings her pain [...] asymmetry Y Motor/Trop (more content not included)... [facility] 01-04-2023 Hospital Discharge instructions Patient [...] include: ?Spinach. ?Rhubarb. ?Beets. ?Potato chips and [place] citizen fries. ?Nuts. If you regularly take a diuretic medicine, make sure to eat at least 1 2 fruits or vegetables high in potassium each day. These include: ?Avocado. ?Banana. ?P[place], prune, carrot, or tomato juice. ?Baked potato. [...] Casseroles. Pizza. Lasagna. Frozen meals. Potato chips. Amharic fries. Summary You can reduce your risk [...] 01/22/2012 Document Revised: 01/17/2020 Document Reviewed: 09/07/2017 [employer] Patient Education 2020 [employer]. Follow Up Care 10/29/2022 14:23:18 With:ROSS GENTILE, Diana Goss, URL Address: [facility] [address] , [place] [address]- When: Unknown [facility] 12-24-2022 Note Attestation signed by Arjun Miner [...] where the trial produced relief[place] [address] Subjective Patient ID: Elvi Moore is a [...] the limited duration of benefit. Currently taking [place] 5-325 mg daily which brings her pain [...] lateral > media (more content not included)... [facility] 12-11-2022 Note Post call Pt states the stabbing pain 10/10 is somewhat better now a 6. Feels like cramping pain. Reminded of follow up in clinic. [facility] 11-24-2022 Note History Referral Source: [facility] Orthopedics 11/25/22 CC: Chief Complaint [...] unremarkable. 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 Past History of Treatments: Patient has tried other professional care of: OPPT (last performed in 07/2022) Trialed medications: Ibuprofen Current Medications for Associated Pain: [place] 5/325, Amitriptyline 50 qhs Current Outpatient Medications [...] 06/01/22 Left TKA (more content not included)... [facility] 11-24-2022 Note History Referral Source: [facility] Orth[facility]ics 11/25/22 CC: Chief Complaint [...] unremarkable. 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 Past History of Treatments: Patient has tried other professional care of: OPPT (last performed in 07/2022) Trialed medications: Ibuprofen Current Medications for Associated Pain: [place] 5/325, Amitriptyline 50 qhs Current Outpatient Medications [...] 06/01/22 Left TKA (more content not included)... [facility] 11-20-2022 Note Orthopaedic Surgery Outpatient [...] Stress Concern Presen (more content not included)... [facility] 11-19-2022 Note Please schedule an a ppointment for her for evaluation of the knee tomorrow afternoon. [facility] 11-13-2022 Note Talked with patient about her current situation with her knee. Discussed cultures and after discussion with Dr. Lane we will give her a referral to pain management. [facility] 11-05-2022 Note Spoke with lab and n ew order was placed. [facility] 11-03-2022 Note Orthopaedic Surgery Outpatient [...] Days of E (more content not included)... [facility] 10-21-2022 Note RECURRENT PAIN AT ABDULLAHI RGICAL KNEE; RECOMMENDED ER EVALUATION PER [facility] ORTHO [facility] 10-21-2022 Note If pain is 10/10 [facility] ontrolled I would recommend going to ER for further evaluation. [facility] 10-20-2022 Note Orthopaedic Surgery Outpatient Visit Note Encounter Date: 10/20/2022 Patient: Elvi Moore RIC 1980 PCP Arleth Acharya MD CC: Chief [...] No Physical Activ (more content not included)... [facility] 06-29-2022 Evaluation + Plan note Diagnostic Tests [facility] Fish [facility] Urine Cyto ([facility]) 06/29/22 [facility] 06-29-2022 Hospital Discharge instructions Patient Education [...] Follow these instructions at home: Medicines Take tjzb-lqt-ddefwks and prescription medicines only as told by [...] or the blood stops without treatment. Take kqzm-fkv-pkdytew and prescription medicines only as told by your health care provider. Drink enough fluid to keep your urine clear or pale yellow. This information is not intended to replace advice given to you by your health care provider. Make sure you discuss any questions you have with your health care provider. Document Released: 09/27/2006 Document Revised: 02/21/2020 Document Reviewed: 10/30/2017 [employer] Patient Education 2020 [employer]. Follow Up Care 05/06/2022 15:50:29 With:ROSS GENTILE, Diana Goss, URL Address: [facility] [address] , [place] [address]- [phone] When: Unknown [facility] 06-16-2022 Note MR#: [id number] I [facility] Pt. Name: Elvi Moore Admitted: [...] by: Kevin Lane M.D. 06/23/2022 07:42 A ____ Kevin Lane M.D. I have reviewed this discharge summary and confirmed the resident's documentation. Please note that there may be additional documentation from me. Date Dict: 06/16/2022/10:36 A/Alvin Cavazos MD Date Trans: 06/16/2022 02:27 P/taylor [id number] cc: Arleth Acharya M.D. [address] [address] [facility] Evaluation + Plan note Future Appointments Appointment Date:01/11/2023 01:45:00 PM Scheduled Provider:Diana HAWKINS MD Location:[facility] Appointment Type:URO Office Visit [facility] Evaluation note No assessment inform ation available [facility] Work Phone: Hospital course Narrative No data available for this section [facility] Progress note No data available for this section [facility] Summary Purpose Family History No Family [...] section and content) DATE CREATED AUTHOR 03/31/2018 [facility] DATE CREATED AUTHOR AUTHOR'S ORGANIZ ATION 10/11/2018 [facility] DATE CREATED AUTHOR AUTHOR'S ORGANIZ ATION 06/23/2022 [facility] DATE CREATED AUTHOR AUTHOR'S ORGANIZ ATION 01/28/2023 [facility] DATE CREATED AUTHOR AUTHOR'S ORGANIZ ATION 07/31/2023 [facility] DATE CREATED AUTHOR AUTHOR'S ORGANIZ ATION 09/10/2023 [facility] DATE CREATED AUTHOR AUTHOR'S ORGANIZ ATION 09/28/2023 [facility] Care Team (unrecognized sect ion [...] BE BASED ON THE PRIMARY CLINICAL RECORDS. [facility]. provides no warranty or guarantee of the accuracy or completeness of information in this document.
--- NOTE | 2023-10-01 16:48 | CT_ITS ---
The [address] [address] Patient Name: KRISTINE MADDEN MRN: [id number] date: 1980 Sex: F Assigned Patient Location: ER Current Patient Location: ER Accession/Order Number: [id number] Exam Date: 10/01/2023 17:45 Report Date: 10/01/2023 18:25 At the request of: CHEKO SORIANO Procedure: CT abdomen pelvis w con CT ABDOMEN AND PELVIS WITH CONTRAST: INDICATION: kidney stone. COMPARISON: Previous unenhanced CT scan dated 08/12/2023. Renal ultrasound dated 08/18/2023.. TECHNIQUE:Multiple thin section transaxial slices were acquired through the abdomen and pelvis with intravenous contrast. Coronal and sagittal reconstructed images were reviewed. Oral contrastWas not administered. FINDINGS: LOWER CHEST: The lower chest is unremarkable. LIVER: The liver is unremarkable. GALLBLADDER AND BILIARY SYSTEM: No obvious ductal dilation. The gallbladder surgically absent. SPLEEN: The spleen is unremarkable. PANCREAS: The pancreas is unremarkable. ADRENAL GLANDS: The adrenal glands are unremarkable. KIDNEYS AND URETERS: There is a thin interval placement of a left-sided ureteral stent with the proximal stent coiled in the left renal collecting system and the distal stent coiled in the urinary bladder. There is pelvocaliectasis of the left kidney. A calculus in the left lower pole is not well delineated currently. There is no right hydronephrosis. Right ureter is within normal limits.There is no obvious calculus adjacent to the ureteral stent. There is some mild enhancement of the wall of the left renal pelvis which may represent pyelitis. VASCULATURE: Vascularity is unremarkable. PERITONEUM/RETROPERITONEUM: Peritoneum/retroperitoneum is unremarkable. LYMPH NODES: No suspicious lymphadenopathy. GASTROINTESTINAL TRACT: The patient is status post gastric bypass. There is enhancing wall thickening of the afferent limb which is concerning for an inflammatory process.. The bowel is normal in caliber.No acute inflammatory changes are associated with the bowel.The appendix is not well delineated and may be absent or diminutive. BLADDER: There is some asymmetric enhancing wall thickening along the right side of the urinary bladder possibly representing cystitis. REPRODUCTIVE SYSTEM: There is a neurostimulator in the subcutaneous soft tissues posterior to the right pelvis with wires extending into the lumbar spinal canal. BODY WALL: Unremarkable. BONES: Osseous structures are unremarkable. CT/CT abdomen pelvis w con IMPRESSION: 1. Interval placement of a left ureteral stent. There is pelvocaliectasis of the left kidney with enhancement of the wall of the left renal pelvis concerning for pyelitis. Previously noted left lower pole renal calculus is not well delineated on the current exam. 2. Asymmetric enhancement along the right side of the urinary bladder wall concerning for cystitis. 3. Status post gastric bypass with enhancing wall thickening of the afferent limb concerning for an inflammatory process. Electronically authenticated by: MARTHA MANRIQUEZ Date: 10/01/2023 18:25
--- NOTE | 2023-10-01 16:50 | ED.GENADUL1 ---
HPI - General Adult General Chief complaint: Abdominal Pain Stated complaint: [employer] Issues Time Seen by Provider: 10/01/23 16:46 Source: patient Mode of arrival: walk-in Limitations: no limitations History of Present Illness HPI narrative: Patient is a 42-year-old female who is presenting with possible kidney stone pain. Patient's having left lower back pain, left flank and left lower quadrant pain. Patient had a cardiac stent placed September 16 to the left by Dr. Bautista. Patient was known to have a Kidney stone what patient believes a 5 mm stone to the left ureter that they had lithotripsy with. Patient findings after surgery was done by Dr. Bautista was distal left ureter stenosis, left renal calculi. Patient has been having nausea and vomiting since last night. Patient has Freeport and Phenergan at home that is not helping with her pain. Patient does not believe that she's passed any stones since the lithotripsy and stent placement. Patient still has a stent to the left side. Patient call the office last week when she was having hematuria, Dr. Bautista had told them that that was normal after the procedure. Patient has Phenergan at home that she uses for nausea. The Freeport is not helping. Patient called Dr. Bautista office today and was told to come to the Emergency Room she is continuing to have pain and intractable nausea vomiting since last night. Patient was brought to the Emergency Room by her daughter. Operation report was reviewed from 09/16/23 . All systems are negative except as noted/marked. All systems reviewed and otherwise negative. . Nurses note and vital signs reviewed and patient is not hypoxic. General: The patient appears Mild to moderate distress secondary to pain. Patient is resting uncomfortably on cart. Patient is not toxic, lethargic, or listless Skin: Warm, dry, no pallor noted. There is no rash noted. No petechiae, purpura. Head: Normocephalic, atraumatic Eye: Normal conjunctiva, no drainage, EOMI. PERRL Ears, Nose, Mouth, and Throat: oral mucosa is moist. Nares patent. Mouth without vesicles. Cardiovascular: Regular Rate and Rhythm, no murmur, gallop, rub Respiratory: Patient is in no distress, no accessory muscle use, lungs are clear to auscultation, no wheezing, rales or rhonchi Back: Moderate to severe tenderness to palpation to the left lower paralumbar area, no midline tenderness to palpation. Moderate left flank pain, mild to moderate left lower quadrant tenderness palpation, mild suprapubic tenderness to palpation. No right lower quadrant, right upper quadrant, right flank pain tenderness palpation. Positive left moderate CVA tenderness palpation, no right CVA tenderness bilaterally to percussion. No CTLS midline pain Otherwise. GI: soft, no tenderness to palpation, no masses appreciated. No rebound, guarding, or rigidity noted. No flank pain bilateral, No distention Musculoskeletal: Patient has full range of motion of all of the extremities, no motor, sensory, or focal neurological deficits Neurological: A&O x3, normal speech Psychiatric: Cooperative Related Data Home Medications Medication Instructions Recorded Confirmed amitriptyline 50 mg tablet 50 mg PO BEDTIME 08/11/23 09/16/23 conjugated estrogens 0.625 mg/gram 0.625 mg vaginal PRN 08/11/23 09/16/23 vaginal cream (Premarin) cyanocobalamin (vitamin B-12) 1,000 mcg IM .monthly 08/11/23 09/16/23 1,000 mcg/mL injection solution hydrocodone 5 mg-acetaminophen 325 1 tab PO Q12H PRN pain 08/11/23 09/16/23 mg tablet ondansetron 4 mg disintegrating 4 mg PO Q4H PRN nausea and vomiting 08/11/23 09/16/23 tablet tamsulosin 0.4 mg capsule (Flomax) 0.4 mg PO DAILY 08/11/23 09/16/23 tizanidine 4 mg tablet 4 mg PO BEDTIME 08/11/23 09/16/23 pantoprazole 40 mg tablet,delayed 40 mg PO BID 09/13/23 09/16/23 release Previous Rx's Medication Instructions Recorded cephalexin 500 mg capsule 500 mg PO BID 7 days #14 caps 09/16/23 solifenacin 10 mg tablet (Vesicare) 10 mg PO DAILY #14 tabs 09/16/23 naproxen 500 mg tablet,delayed 500 mg PO BID PRN pain 7 days #14 10/01/23 release (EC-Naproxen) tabs oxybutynin chloride 5 mg tablet 5 mg PO Q12H PRN bladder spasms 3 10/01/23 days #14 tabs oxycodone-acetaminophen 5 mg-325 1 tab PO Q4H PRN pain #7 tabs 12/22/23 mg tablet (Percocet) phenazopyridine 200 mg tablet 200 mg PO Q8H 2 days #6 tabs 10/01/23 (Pyridium) Allergies Allergy/AdvReac Type Severity Reaction Status Date / Time ketorolac [From Toradol] Allergy Intermediate Verified 09/16/23 07:18 meperidine [From Demerol] Allergy Intermediate Verified 09/16/23 07:18 prochlorperazine Allergy Intermediate Verified 09/16/23 07:18 [From Compazine] [facility] Medical History (Updated 10/01/23 @ 19:30 by Rusty Henry MD) Dehydration ?E86.0 - Dehydration (ICD-10) Cholecystectomy planned Acute pain ?R52 - Pain, unspecified (ICD-10) Anxiety ?F41.9 - Anxiety disorder, unspecified (ICD-10) Depression ?F32.A - Depression, unspecified (ICD-10) Stomach ulcer ?K25.9 - Gastric ulcer, unspecified as acute or chronic, without hemorrhage or perforation (ICD-10) Pancreatitis ?K85.90 - Acute pancreatitis without necrosis or infection, unspecified (ICD-10) Kidney stone ?N20.0 - Calculus of kidney (ICD-10) Surgical History (Updated 09/13/23 @ 13:54 by Bisi Bowie RN) Hx laparoscopic cholecystectomy ?Z90.49 - Acquired absence of other specified parts of digestive tract (ICD-10) History of lumpectomy of right breast ?Z98.890 - Other specified postprocedural states (ICD-10) History of placement of ear tubes ?Z96.22 - Myringotomy tube(s) status (ICD-10) S/P insertion of spinal cord stimulator ?Z96.89 - Presence of other specified functional implants (ICD-10) History of knee replacement procedure of left knee ?Z96.652 - Presence of left artificial knee joint (ICD-10) Gastric bypass status for obesity ?Z98.84 - Bariatric surgery status (ICD-10) H/O: hysterectomy ?Z90.710 - Acquired absence of both cervix and uterus (ICD-10) Hx of appendectomy ?Z90.49 - Acquired absence of other specified parts of digestive tract (ICD-10) Family History (Updated 08/11/23 @ 10:31 by Josie Pantoja) Grandfather Family history of COPD (chronic obstructive pulmonary disease) Father Family history of cancer Family history of diabetes mellitus Family history of hypertension Family history of stroke Sister Family history of cancer Family history of diabetes mellitus Grandmother Family history of diabetes mellitus Family history of hypertension Social History (Updated 09/13/23 @ 13:56 by Bisi Bowie RN) Within the past year, how often did you have a drink containing alcohol: never Within the past year, how many standard drinks containing alcohol did you have on a typical day: 1 or 2 Within the past year, how often did you have six or more drinks on one occasion: never Total score: 0 Score interpretation: A score less than 3 is consistent with normal alcohol consumption. Smoking status: Former smoker Second hand tobacco smoke exposure: No Non-prescribed substance use: denies use Previous occupational history: [employer] Known occupational exposures/hazards: No Highest level of school completed/degree received: some college, no degree Are you now , , , , never or living with a partner: In a typical week, how many times do you talk on the telephone with family, friends, or neighbors: 3 or more times per week How often do you get together with friends or relatives: 3 or more times per week How often do you attend orthodoxy or zoroastrianism services: 4 or more times per year Do you belong to any clubs or organizations such as orthodoxy groups unions, fraternal or athletic groups, or school groups: no Total score: 3 Score interpretation: A score of greater than or equal to 2 indicates the lowest level of social isolation. Little interest or pleasure in doing things: not at all Feeling down, depressed, or hopeless: not at all Feel stressed/tense/nervous/anxious/difficulty sleeping: not at all Do you think of yourself as: straight/heterosexual Gender Identity: female Exam Constitutional Vital Signs, click to edit/add: Last Vital Signs Temp 98.1 F 10/01/23 16:24 Pulse 92 H 10/01/23 18:32 Resp 18 10/01/23 18:32 BP 139/99 H 10/01/23 18:32 Pulse Ox 100 10/01/23 18:32 O2 Del Method Room Air 10/01/23 16:24 Course Vital Signs Vital signs: Vital Signs Temperature 98.1 F 10/01/23 16:24 Pulse Rate 94 H 10/01/23 16:24 Respiratory Rate 20 10/01/23 16:24 Blood Pressure 125/107 H 10/01/23 16:24 Pulse Oximetry 100 10/01/23 16:24 Oxygen Delivery Method Room Air 10/01/23 16:24 Temperature 98.1 F 10/01/23 16:24 Pulse Rate 92 H 10/01/23 18:32 Respiratory Rate 18 10/01/23 18:32 Blood Pressure 139/99 H 10/01/23 18:32 Pulse Oximetry 100 10/01/23 18:32 Oxygen Delivery Method Room Air 10/01/23 16:24 Medical Decision Making MDM Narrative Medical decision making narrative: Patient was initially given a liter of IV fluids, Zofran and morphine. Zofran had improved, the pain was still significant so she was given a 2nd dose of morphine. Patient give a urine sample, lab work, and had a CT secondary to having a stent that was placed September 16 and patient is not certain she passed any of her kidney stones in secondary to pain complications. CT showed no significant signs of hematoma, abscess, infection, it did show pyelitis and inflammation of the ureter but this time, but no acute abnormality. Patient's case was discussed with Dr. Gonzalez at 1850. Patient has Zofran and Phenergan at home. Patient is already taking Flomax daily. Patient was told she cannot take anti-inflammatories secondary to gastric bypass surgery. Patient is aware that she could take enteric-coated Naprosyn short-term to help with inflammation and she agrees. Dr. Gonzalez recommended the patient could go home, urine shows no obvious signs of infection. Urine culture is pending. She recommended oxybutynin, Pyridium, and short-term pain medication as needed. Patient is already taking Freeport, patient was recommended to take Percocet short-term if needed for something stronger for pain and patient aware not to take Freeport and Percocet together and not to take Tylenol with her narcotics secondary to possible Tylenol overdose. Patient was given Zofran and Valium at discharge to help with pain and nausea and smooth muscle relaxation. Patient agrees going home and follow up Dr. Bautista next week. Patient does not have a follow-up appointment with Dr. Bautista until October 19. Patient will call Wednesday to try to see Dr. Bautista sooner for possible stent removal. Lab Data Lab results reviewed: Yes I reviewed the patient's lab results Labs: Lab Results 10/01/23 Range/Units 16:40 WBC 9.6 (4.0-11.0) 10^3/uL RBC 4.42 (4.20-5.40) 10^6/uL Hgb 12.6 (12.0-16.0) g/dL Hct 39.5 (36.0-48.0) % MCV 89.4 (81.0-99.0) fL MCH 28.5 (26.7-34.0) pg MCHC 31.9 (29.9-35.2) g/dL RDW 13.2 (11.0-15.0) % Plt Count 299 (150-450) 10^3/uL MPV 9.4 L (9.5-13.5) fL Neut % (Auto) 63.6 (43.0-75.0) % Lymph % (Auto) 29.2 (20.5-60.0) % [place] % (Auto) 5.6 (1.7-12.0) % Eos % (Auto) 1.1 (0.9-7.0) % Baso % (Auto) 0.2 (0.2-2.0) % Neut # (Auto) 6.1 (1.4-6.5) 10^3/uL Lymph # (Auto) 2.8 (1.2-3.8) 10^3/uL [place] # (Auto) 0.5 (0.3-0.8) 10^3/uL Eos # (Auto) 0.1 (0.0-0.7) 10^3/uL Baso # (Auto) 0.0 (0.0-0.1) 10^3/uL Abs Immat Gran (auto) 0.03 (0.00-0.03) 10^3/uL Imm/Tot Granulo (auto) 0.3 (0.0-0.5) % Sodium 141 (136-145) mmol/L Potassium 3.6 (3.5-5.1) mmol/L Chloride 103 (98-107) mmol/L Carbon Dioxide 31.1 (21.0-32.0) mmol/L Anion Gap 10.5 BUN 17.0 (7.0-18.0) mg/dL Creatinine 0.87 (0.55-1.02) mg/dL Est GFR ( Amer) >60 (>=60) Est GFR (Non-Af Amer) >60 (>=60) BUN/Creatinine Ratio 19.5 Glucose 88 (74-106) mg/dL Lactate 1.2 (0.4-2.0) mmol/L Calcium 9.2 (8.5-10.1) mg/dL Total Bilirubin 0.3 (0.2-1.0) mg/dL AST 12 L (15-37) U/L ALT 20 (14-59) U/L Alkaline Phosphatase 119 H (46-116) U/L Total Protein 7.9 (6.4-8.2) g/dL Albumin 3.8 (3.4-5.0) g/dL Globulin 4.1 g/dL Albumin/Globulin Ratio 0.9 Lipase 68.0 (16.0-77.0) U/L Urine Color Yellow (YELLOW) Urine Clarity Sl cloudy (CLEAR) Urine pH 6.0 (5.0-9.0) Ur Specific [place] 1.015 (1.005-1.025) Urine Protein 100 A (NEG/TRACE) mg/dL Urine Glucose (UA) Negative (NEGATIVE) mg/dL Urine Ketones Negative (NEGATIVE) mg/dL Urine Occult Blood Large A (NEGATIVE) Urine Nitrite Negative (NEGATIVE) Urine Bilirubin Negative (NEGATIVE) Urine Urobilinogen 0.2 (0.2-1.0) EU/dL Ur Leukocyte Esterase Small A (NEGATIVE) Urine RBC 50-75 A (0-2) #/HPF Urine WBC 2-5 A (NONE SEEN) #/HPF Ur Squamous Epith Cells Rare (NONE/RARE) #/LPF Urine Crystals None seen (None Seen) #/HPF Urine Bacteria Trace A (NONE SEEN) #/HPF Urine Casts None seen (NONE SEEN) #/LPF Urine Mucus None seen (NONE SEEN) Discharge Plan Discharge Chief Complaint: Abdominal Pain Clinical Impression: Renal colic on left side, Nausea & vomiting Patient Disposition: Home, Self-Care Time of Disposition Decision: 19:29 Condition: Fair Prescriptions / Home Meds: New naproxen [EC-Naproxen] 500 mg tablet,delayed release (DR/EC) 500 mg PO BID PRN (Reason: pain) 7 Days Qty: 14 0RF Rx Instructions: Take with food and drink oxybutynin chloride 5 mg tablet 5 mg PO Q12H PRN (Reason: bladder spasms) 3 Days Qty: 14 0RF phenazopyridine [Pyridium] 200 mg tablet 200 mg PO Q8H 2 Days Qty: 6 0RF oxycodone-acetaminophen [Percocet] 5-325 mg tablet 1 tab PO Q4H PRN (Reason: pain) Qty: 7 0RF No Action ondansetron 4 mg tablet,disintegrating 4 mg PO Q4H PRN (Reason: nausea and vomiting) Rx Instructions: filled 08/10/23 for 3 days tamsulosin [Flomax] 0.4 mg capsule 0.4 mg PO DAILY Patient Comments: filled 08/10/23 for 14 days amitriptyline 50 mg tablet 50 mg PO BEDTIME Premarin 0.625 mg/gram cream 0.625 mg vaginal PRN cyanocobalamin (vitamin B-12) 1,000 mcg/mL solution 1,000 mcg IM .monthly tizanidine 4 mg tablet 4 mg PO BEDTIME hydrocodone-acetaminophen 5-325 mg tablet 1 tab PO Q12H PRN (Reason: pain) pantoprazole 40 mg tablet,delayed release (DR/EC) 40 mg PO BID cephalexin 500 mg capsule 500 mg PO BID 7 Days Qty: 14 0RF solifenacin [Vesicare] 10 mg tablet 10 mg PO DAILY Qty: 14 0RF Instructions: Renal Colic (ED), Acute Nausea and Vomiting (ED) Additional Instructions: Called Dr. Bautista office on October 05 to follow-up to see if he was thinking be removed sooner if he continued to have pain. Medications have been prescribed to help you with pain and inflammation. Use nausea medication as needed. He can take Zofran and Phenergan together. To not take Percocet and Freeport together, they're both narcotics and can be too strong together. Do not take Tylenol with either Percocet or do not take Tylenol with Freeport. He can actually take too much Tylenol together. Increase fluids. Stand Alone Forms: Portal Instructions Referrals: Yasir Ledesma MD [Primary Care Provider] - 1 week Discharge Date/Time: 10/01/23 19:49
[2023-10-01 16:57] LABS: Basophils Percent Auto 0.2 % (0.2-2.0); Eosinophils Absolute Auto 0.1 10^3/uL (0.0-0.7); Eosinophils Percent Auto 1.1 % (0.9-7.0); Hematocrit 39.5 % (36.0-48.0); Hemoglobin 12.6 g/dL (12.0-16.0); Immature Granulocytes Abs Auto 0.03 10^3/uL (0.00-0.03); Immature Granulocytes Pct Auto 0.3 % (0.0-0.5); Lymphocytes Absolute Auto 2.8 10^3/uL (1.2-3.8); Lymphocytes Percent Auto 29.2 % (20.5-60.0); Mean Corpuscular HGB Conc 31.9 g/dL (29.9-35.2); Mean Corpuscular Hemoglobin 28.5 pg (26.7-34.0); Mean Corpuscular Volume 89.4 fL (81.0-99.0); Mean Platelet Volume 9.4 fL (9.5-13.5); Monocytes Absolute Auto 0.5 10^3/uL (0.3-0.8); Monocytes Percent Auto 5.6 % (1.7-12.0); Neutrophils Absolute Auto 6.1 10^3/uL (1.4-6.5); Neutrophils Percent Auto 63.6 % (43.0-75.0); Platelet Count 299 10^3/uL (150-450); Red Blood Count 4.42 10^6/uL (4.20-5.40); Red Cell Distribution Width 13.2 % (11.0-15.0); White Blood Count 9.6 10^3/uL (4.0-11.0)
[2023-10-01] MEDS: ONDANSETRON PF 4 MG/2 ML VIAL IV ×2 (17:00→18:48)
[2023-10-01] MEDS: 0.9 % SODIUM CHLORIDE 1,000 ML 999 ML IV (17:00)
[2023-10-01 17:01] LABS: Bilirubin Urine NEGATIVE (NEGATIVE); Blood Urine LARGE (NEGATIVE); Clarity Urine SL CLOUDY (CLEAR); Color Urine YELLOW (YELLOW); Glucose Urine UA NEGATIVE (NEGATIVE); Ketones Urine NEGATIVE (NEGATIVE); Leukocyte Esterase Urine SMALL (NEGATIVE); Nitrite Urine NEGATIVE (NEGATIVE); Protein Urine 100 mg/dL (NEG/TRACE); Specific Gravity Urine 1.015 (1.005-1.025); Urobilinogen Urine 0.2 EU/dL (0.2-1.0)
[2023-10-01] MEDS: MORPHINE SULFATE 2 MG/ML SYRINGE 4 MG IV (17:04)
[2023-10-01 17:12] LABS: Bacteria Urine TRACE #/HPF (NONE SEEN); Cast Seen? NONE SEEN #/LPF (NONE SEEN); Crystals Seen? None Seen #/HPF (None Seen); Mucus Urine NONE SEEN (NONE SEEN); RBC Urine 50-75 #/HPF (0-2); Squamous Epithelial Cell Urine RARE #/LPF (NONE/RARE)
[2023-10-01 17:13] LABS: Alanine Aminotransferase 20 U/L (14-59); Albumin Globulin Ratio 0.9; Albumin Level 3.8 g/dL (3.4-5.0); Alkaline Phosphatase 119 U/L (46-116); Anion Gap 10.5; Aspartate Amino Transferase 12 U/L (15-37); BUN Creatinine Ratio 19.5; Bilirubin Total 0.3 mg/dL (0.2-1.0); Calcium 9.2 mg/dL (8.5-10.1); Carbon Dioxide 31.1 mmol/L (21.0-32.0); Chloride 103 mmol/L (98-107); Estimated GFR (African America >60 (>=60); Estimated GFR (Non-African Ame >60 (>=60); Globulin 4.1 g/dL; Glucose 88 mg/dL (74-106); Potassium 3.6 mmol/L (3.5-5.1); Sodium 141 mmol/L (136-145); Total Protein 7.9 g/dL (6.4-8.2)
[2023-10-01 17:15] LABS: Lactate/Lactic Acid 1.2 mmol/L (0.4-2.0)
[2023-10-01] MEDS: MORPHINE SULFATE 4 MG/ML VIAL IV (17:25)
[2023-10-01 18:32] VITALS: BP 139/99; PULSE 92; RESP 18; O2SAT 100
[2023-10-01] MEDS: DIAZEPAM 10 MG/2 ML SYRINGE 2 MG IV (18:48)
== END 2023-10-01 19:49 | disposition home or self-care (01) ==
PROVIDERS: Emergency Provider Emergency Medicine; PCP Family Medicine
DX: N23 Unspecified renal colic (principal); R10.32 Left lower quadrant pain; Z98.84 Bariatric surgery status; R11.2 Nausea with vomiting, unspecified; Z79.899 Other long term (current) drug therapy; F41.9 Anxiety disorder, unspecified; F32.A Depression, unspecified; Z90.49 Acquired absence of other specified parts of digestive tract; Z96.89 Presence of other specified functional implants; Z96.652 Presence of left artificial knee joint; Z90.710 Acquired absence of both cervix and uterus; Z87.891 Personal history of nicotine dependence
CPT/HCPCS: 36415; 74177; 80053; 81001; 83605; 83690; 85025; 96361; 96374; 96375; 96376; 99285; Q9967

== ENCOUNTER 2023-10-02 14:57 | Emergency (ER) | payer OTHER, SELFPAY ==
[2023-10-02 15:02] VITALS: BP 162/109; PULSE 98; RESP 18; TEMP 36.8; O2SAT 98; BMI 24.2
--- NOTE | 2023-10-02 15:07 | ED.FEMALEGU1 ---
HPI - Female Genitourinary General Chief complaint: Back Pain/Injury Stated complaint: BACK PAIN Time Seen by Provider: 10/02/23 15:02 Source: patient Mode of arrival: Wheelchair Limitations: no limitations History of Present Illness HPI Narrative: 42-year-old female presents for left flank pain. She had a ureteral stent placed on the left on September 16. She was seen here yesterday with some pain and was discharged home on oxycodone but she can fill it because she recently had [place] filled. The pain is worse and she is passing some blood clots in her urine. No fever or right-sided pain. The pain is severe and continuous. Related Data Home Medications Medication Instructions Recorded Confirmed amitriptyline 50 mg tablet 100 mg PO BEDTIME 08/11/23 10/02/23 conjugated estrogens 0.625 mg/gram 0.625 mg vaginal PRN 08/11/23 10/02/23 vaginal cream (Premarin) cyanocobalamin (vitamin B-12) 1,000 mcg IM .monthly 08/11/23 10/02/23 1,000 mcg/mL injection solution hydrocodone 5 mg-acetaminophen 325 1 tab PO Q12H PRN pain 08/11/23 10/02/23 mg tablet ondansetron 4 mg disintegrating 4 mg PO Q4H PRN nausea and vomiting 08/11/23 10/02/23 tablet tamsulosin 0.4 mg capsule (Flomax) 0.4 mg PO DAILY 08/11/23 10/02/23 tizanidine 4 mg tablet 4 mg PO BEDTIME 08/11/23 10/02/23 pantoprazole 40 mg tablet,delayed 40 mg PO BID 09/13/23 10/02/23 release Previous Rx's Medication Instructions Recorded solifenacin 10 mg tablet (Vesicare) 10 mg PO DAILY #14 tabs 09/16/23 oxybutynin chloride 5 mg tablet 5 mg PO Q12H PRN bladder spasms 3 10/01/23 days #14 tabs oxycodone-acetaminophen 5 mg-325 1 tab PO Q4H PRN pain #7 tabs 10/01/23 mg tablet (Percocet) phenazopyridine 200 mg tablet 200 mg PO Q8H 2 days #6 tabs 10/01/23 (Pyridium) Allergies Allergy/AdvReac Type Severity Reaction Status Date / Time ketorolac [From Toradol] Allergy Intermediate Verified 10/02/23 15:01 meperidine [From Demerol] Allergy Intermediate Verified 10/02/23 15:01 prochlorperazine Allergy Intermediate Verified 10/02/23 15:01 [From Compazine] Review of Systems ROS Narrative A ten point review of systems is negative except as noted above. PFSH PFSH Medical History (Updated 10/02/23 @ 16:54 by Durga Aguiar MD) Dehydration ?E86.0 - Dehydration (ICD-10) Cholecystectomy planned Acute pain ?R52 - Pain, unspecified (ICD-10) Anxiety ?F41.9 - Anxiety disorder, unspecified (ICD-10) Depression ?F32.A - Depression, unspecified (ICD-10) Stomach ulcer ?K25.9 - Gastric ulcer, unspecified as acute or chronic, without hemorrhage or perforation (ICD-10) Pancreatitis ?K85.90 - Acute pancreatitis without necrosis or infection, unspecified (ICD-10) Kidney stone ?N20.0 - Calculus of kidney (ICD-10) Surgical History (Updated 09/13/23 @ 13:54 by Bisi Bowie RN) Hx laparoscopic cholecystectomy ?Z90.49 - Acquired absence of other specified parts of digestive tract (ICD-10) History of lumpectomy of right breast ?Z98.890 - Other specified postprocedural states (ICD-10) History of placement of ear tubes ?Z96.22 - Myringotomy tube(s) status (ICD-10) S/P insertion of spinal cord stimulator ?Z96.89 - Presence of other specified functional implants (ICD-10) History of knee replacement procedure of left knee ?Z96.652 - Presence of left artificial knee joint (ICD-10) Gastric bypass status for obesity ?Z98.84 - Bariatric surgery status (ICD-10) H/O: hysterectomy ?Z90.710 - Acquired absence of both cervix and uterus (ICD-10) Hx of appendectomy ?Z90.49 - Acquired absence of other specified parts of digestive tract (ICD-10) Family History (Updated 08/11/23 @ 10:31 by Josie Pantoja) Grandfather Family history of COPD (chronic obstructive pulmonary disease) Father Family history of cancer Family history of diabetes mellitus Family history of hypertension Family history of stroke Sister Family history of cancer Family history of diabetes mellitus Grandmother Family history of diabetes mellitus Family history of hypertension Social History (Updated 09/13/23 @ 13:56 by Bisi Bowie RN) Within the past year, how often did you have a drink containing alcohol: never Within the past year, how many standard drinks containing alcohol did you have on a typical day: 1 or 2 Within the past year, how often did you have six or more drinks on one occasion: never Total score: 0 Score interpretation: A score less than 3 is consistent with normal alcohol consumption. Smoking status: Former smoker Second hand tobacco smoke exposure: No Non-prescribed substance use: denies use Previous occupational history: [employer] Known occupational exposures/hazards: No Highest level of school completed/degree received: some college, no degree Are you now , , , , never or living with a partner: In a typical week, how many times do you talk on the telephone with family, friends, or neighbors: 3 or more times per week How often do you get together with friends or relatives: 3 or more times per week How often do you attend presybeterian or mandaeism services: 4 or more times per year Do you belong to any clubs or organizations such as presybeterian groups unions, fraternal or athletic groups, or school groups: no Total score: 3 Score interpretation: A score of greater than or equal to 2 indicates the lowest level of social isolation. Little interest or pleasure in doing things: not at all Feeling down, depressed, or hopeless: not at all Feel stressed/tense/nervous/anxious/difficulty sleeping: not at all Do you think of yourself as: straight/heterosexual Gender Identity: female Exam Narrative Exam Narrative: Nurses note and vital signs reviewed and patient is not hypoxic. General: The patient appears uncomfortable. Skin: Warm, dry, no pallor noted. There is no rash noted. Head: Normocephalic, atraumatic Eye: Normal conjunctiva, no drainage Ears, Nose, Mouth, and Throat: oral mucosa is moist. Nares patent. Cardiovascular: Regular Rate and Rhythm Respiratory: Patient is in no distress, no accessory muscle use, lungs are clear to auscultation, no wheezing, rales or rhonchi Back: non-tender, no bruise or rash on her back GI: no tenderness to palpation, no masses appreciated. No rebound, guarding, or rigidity noted. Musculoskeletal: The patient has no evidence of calf tenderness, no pitting edema, symmetrical pulses noted bilaterally Neurological: A&O, normal speech Psychiatric: Cooperative Constitutional Vital Signs, click to edit/add: Last Vital Signs Temp 98.2 F 10/02/23 15:02 Pulse 90 10/02/23 16:47 Resp 20 10/02/23 16:47 BP 134/95 H 10/02/23 16:47 Pulse Ox 100 10/02/23 16:47 O2 Del Method Room Air 10/02/23 15:02 Course Vital Signs Vital signs: Vital Signs Temperature 98.2 F 10/02/23 15:02 Pulse Rate 98 H 10/02/23 15:02 Respiratory Rate 18 10/02/23 15:02 Blood Pressure 162/109 H 10/02/23 15:02 Pulse Oximetry 98 10/02/23 15:02 Oxygen Delivery Method Room Air 10/02/23 15:02 Temperature 98.2 F 10/02/23 15:02 Pulse Rate 90 10/02/23 16:47 Respiratory Rate 20 10/02/23 16:47 Blood Pressure 134/95 H 10/02/23 16:47 Pulse Oximetry 100 10/02/23 16:47 Oxygen Delivery Method Room Air 10/02/23 15:02 MDM - Female Genitourinary MDM Narrative Medical decision making narrative: is given IV Dilaudid and IV morphine. Blood work is nonspecific. She had a CAT scan and urinalysis yesterday and these do not need to be repeated. She has pain medication at home. Differential Diagnosis Differential diagnosis: Likely other (renal colic, kidney stone) Lab Data Attestation: I reviewed the patient's lab results. Labs: Lab Results 10/02/23 Range/Units 15:10 WBC 7.7 (4.0-11.0) 10^3/uL RBC 4.06 L (4.20-5.40) 10^6/uL Hgb 11.6 L (12.0-16.0) g/dL Hct 36.0 (36.0-48.0) % MCV 88.7 (81.0-99.0) fL MCH 28.6 (26.7-34.0) pg MCHC 32.2 (29.9-35.2) g/dL RDW 13.0 (11.0-15.0) % Plt Count 236 (150-450) 10^3/uL MPV 9.5 (9.5-13.5) fL Neut % (Auto) 65.6 (43.0-75.0) % Lymph % (Auto) 28.3 (20.5-60.0) % [place] % (Auto) 4.3 (1.7-12.0) % Eos % (Auto) 1.2 (0.9-7.0) % Baso % (Auto) 0.3 (0.2-2.0) % Neut # (Auto) 5.1 (1.4-6.5) 10^3/uL Lymph # (Auto) 2.2 (1.2-3.8) 10^3/uL [place] # (Auto) 0.3 (0.3-0.8) 10^3/uL Eos # (Auto) 0.1 (0.0-0.7) 10^3/uL Baso # (Auto) 0.0 (0.0-0.1) 10^3/uL Abs Immat Gran (auto) 0.02 (0.00-0.03) 10^3/uL Imm/Tot Granulo (auto) 0.3 (0.0-0.5) % Sodium 141 (136-145) mmol/L Potassium 3.8 (3.5-5.1) mmol/L Chloride 103 (98-107) mmol/L Carbon Dioxide 28.2 (21.0-32.0) mmol/L Anion Gap 13.6 BUN 11.0 (7.0-18.0) mg/dL Creatinine 0.83 (0.55-1.02) mg/dL Est GFR ( Amer) >60 (>=60) Est GFR (Non-Af Amer) >60 (>=60) BUN/Creatinine Ratio 13.3 Glucose 94 (74-106) mg/dL Calcium 9.0 (8.5-10.1) mg/dL Discharge Plan Discharge Chief Complaint: Back Pain/Injury Clinical Impression: Renal colic on left side Patient Disposition: Home, Self-Care Time of Disposition Decision: 16:54 Condition: Good Mode of Transportation: Private Vehicle Prescriptions / Home Meds: No Action ondansetron 4 mg tablet,disintegrating 4 mg PO Q4H PRN (Reason: nausea and vomiting) Rx Instructions: filled 08/10/23 for 3 days tamsulosin [Flomax] 0.4 mg capsule 0.4 mg PO DAILY Patient Comments: filled 08/10/23 for 14 days amitriptyline 50 mg tablet 100 mg PO BEDTIME Premarin 0.625 mg/gram cream 0.625 mg vaginal PRN cyanocobalamin (vitamin B-12) 1,000 mcg/mL solution 1,000 mcg IM .monthly tizanidine 4 mg tablet 4 mg PO BEDTIME hydrocodone-acetaminophen 5-325 mg tablet 1 tab PO Q12H PRN (Reason: pain) pantoprazole 40 mg tablet,delayed release (DR/EC) 40 mg PO BID solifenacin [Vesicare] 10 mg tablet 10 mg PO DAILY Qty: 14 0RF oxybutynin chloride 5 mg tablet 5 mg PO Q12H PRN (Reason: bladder spasms) 3 Days Qty: 14 0RF phenazopyridine [Pyridium] 200 mg tablet 200 mg PO Q8H 2 Days Qty: 6 0RF oxycodone-acetaminophen [Percocet] 5-325 mg tablet 1 tab PO Q4H PRN (Reason: pain) Qty: 7 0RF Instructions: Renal Colic (ED) Additional Instructions: follow-up with Dr. Bautista Stand Alone Forms: Portal Instructions Referrals: Yasir Ledesma MD [Primary Care Provider] - 1 week
[2023-10-02] MEDS: 0.9 % SODIUM CHLORIDE 1,000 ML 1000 ML IV (15:14)
[2023-10-02] MEDS: HYDROMORPHONE HCL 1 MG/ML CARTRIDGE IV (15:16)
[2023-10-02] MEDS: ONDANSETRON PF 4 MG/2 ML VIAL IV (15:18)
[2023-10-02 15:19] LABS: Basophils Percent Auto 0.3 % (0.2-2.0); Eosinophils Absolute Auto 0.1 10^3/uL (0.0-0.7); Eosinophils Percent Auto 1.2 % (0.9-7.0); Hemoglobin 11.6 g/dL (12.0-16.0); Immature Granulocytes Abs Auto 0.02 10^3/uL (0.00-0.03); Immature Granulocytes Pct Auto 0.3 % (0.0-0.5); Lymphocytes Absolute Auto 2.2 10^3/uL (1.2-3.8); Lymphocytes Percent Auto 28.3 % (20.5-60.0); Mean Corpuscular HGB Conc 32.2 g/dL (29.9-35.2); Mean Corpuscular Hemoglobin 28.6 pg (26.7-34.0); Mean Corpuscular Volume 88.7 fL (81.0-99.0); Mean Platelet Volume 9.5 fL (9.5-13.5); Monocytes Absolute Auto 0.3 10^3/uL (0.3-0.8); Monocytes Percent Auto 4.3 % (1.7-12.0); Neutrophils Absolute Auto 5.1 10^3/uL (1.4-6.5); Neutrophils Percent Auto 65.6 % (43.0-75.0); Platelet Count 236 10^3/uL (150-450); Red Blood Count 4.06 10^6/uL (4.20-5.40); White Blood Count 7.7 10^3/uL (4.0-11.0)
--- OUTSIDE RECORDS SUMMARY | 2023-10-02 15:19 | XMS_ITS | CCD ---
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 Name Role Phone JAY JAY ZHANE W [...] REINOSO Primary Care Unavailable HAWKINS ., DR OTRIZ Consulting Unavailable FREDO, NICK Primary Care Unavailable [...] Unavailable MD Arleth Acharya Primary Care Provider [phone] MD Arleth Acharya Referring Provider [phone] DO Calderón Attending Provider Osiris Calderón Admitting [...] Drug Allergy 05-29-20 15 Unknown (qualifier value) [facility] Repository (5 sources) meperidine; Translations: [Demerol HCl] Drug Allergy [facility] Repository (2 sources) Meperidine Drug Allergy 08-01-20 13 [facility] Repository (1 source) Desonide Drug Allergy [facility] Repository (3 sources) Ketorolac; Translations: [ketorolac] Drug Allergy 11-22-19 22 Unknown Reaction [facility] (3 sources) Meperidine; Translations: [meperidine] Drug Allergy 08-01-20 13 Unknown Reaction [facility] (1 source) Desonide; Translations: [DESONIDE] Drug Allergy 01-09-20 21 [facility] Repository (2 sources) Prochlorperazin e; Translations: [PROCHLORPERAZI NE] Drug Allergy 02-12-20 23 Hallucinations (finding) [facility] Repository (1 source) Prochlorperazin e; Translations: [Compazine] Drug Allergy [facility] Repository (1 source) No Known Medication Allergies; Translations: [No Known Medication Allergies] Propensity to adverse reactions (disorder) [facility] Repository Medications Current Medications Medication Drug Class(es) Dates Sig (Normalized) Sig (Original) acetaminophen 325 mg / HYDROcodone bitartrate 5 mg oral tablet (3 sources) Opioid Agonist Start: 05-27-2023 take 1 tablet by mouth twice daily Hydrocodone-Aceta minophen Active 1 TAB PO Twice daily May 27, 2023 12:00am Start: 07-27-2022 [place] 325 mg-5 mg oral tablet 1 tab(s), Oral, BID Pain 8-10, 20 tab(s), Refill(s) 0, [id number], 167, cm, 06/29/22 9:28:00 EDT, Height/Length Dosing, 69, kg, 06/29/22 9:28:00 EDT, Weight Dosing Start Date: 07/27/22 Status: Ordered Start: 06-29-2022 take 1 tablet by mary th every six hours [place] 325 mg-5 mg oral tablet tab(s), Oral, [...] 12-09-2021 Chronic Other aftercare (1 source) 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; Translations: [CISO (CURRENT) USE OF ASPIRIN] Onset: 06-03-2022 Episodic Other aftercare (2 sources) Other prison (current) drug therapy; Translations: [OTHER CISO (CURRENT) DRUG THERAPY] Onset: 08-12-2021 Episodic Other [...] Facility Lab Reportson 09-27-2023 Lab Reports [id number]#1.00TIFF Normal [facility] OARRS Reporton 09-27-2023 OARRS Report [id number]#1.00TIFF [facility] Pre-Certification Formon Pre-Certification Form [id number]#1.00TIFF [facility] Provider Letteron 09-27-2023 Provider Letter (Inserted Image. Darleen ble to display) September 27, 2023 [place] [address] : 1980 To Whom It May Concern, Please excuse above patient from work. Date of Illness: From: 09/16/2023 To: 09/28/2023 May Return to Work On:09/29/2023 Restrictions: No Restrictions Comments: Any questions, please call our office Sincerely, [facility] [address], [place] [address] [facility] Provider Letter (Inserted Image. Darleen ble to display) September 27, 2023 [place] [address] : 1980 To Whom It May Concern, Please excuse above patient from work. Date of Illness: From: 09/16/2023 To: 09/28/2023 May Return to Work On: 09/29/2023 Restrictions: No Restrictios Comments: _ Sincerely, [facility] [address] [place] [address] [facility] Formson 09-22-2023 Forms [id number]#1.00TIFF [facility] RAD - MISCon 09-21-2023 RAD - MISC [id number]#1.00TIFF [facility] Provider Letteron 09-20-2023 Provider Letter (Inserted Image. Darleen ble to display) September 20, 2023 [place] [address] : 1980 To Whom It May Concern, Please excuse above patient from work. Date of Illness: From: 09/16/23 To: 09/21/23 May Return to Work On: 09/22/23 Restrictions: N/A Comments: Patient may return to work 09/22/23. Patient had a surgical procedure done 09/16/[address] Diana Hawkins. Sincerely, [facility] at [facility] ECG 12-Leadon 09-17-2023 ECG 12-Lead [id number]#1.00TIFF [facility] Lab Reportson 09-17-2023 Lab Reports [id number]#1.00TIFF [facility] RAD - CT Reporton 09-17-2023 RAD - CT Report [id number]#1.00TIFF Normal [facility] RAD - MISCon 09-17-2023 RAD - MISC [id number]#1.00TIFF [facility] RAD - Ultrasound Reporton RAD - Ultrasound Report [id number]#1.00TIFF [facility] Operative Reporton Operative Report [id number]#1.00TIFF [facility] ED Note-Physicianon 09-14-20 ED Note-Physician [id number]#1.00TIFF [facility] Insurance Correspondenceon 11-15-2022 Insurance Correspondence [id number]#1.00TIFF [facility] RAD - CT Reporton 09-14-2023 RAD - CT Report [id number]#1.00TIFF [facility] RAD - CT Report [id number]#1.00TIFF Scotty Cuellar [facility] Ambulatory Visit Summaryon 1 11-14-2022 Ambulatory Visit Summary ELVI MOORE :1980 Visit Date:09/13/2023 Ambulatory Visit Instructions Your Diagnosis Kidney stone Gross hematuria Left flank pain Tests Performed Urnls Dip Stick Auto w/o Microscopy POC 09502 Your Care Team Attending Physician - Diana [...] [facility] [address] , [place] [address] [id number] Medications What How Much When Instructions Unchanged [...] Urnls Dip Stick Auto w/o Microscopy POC 91178 (09/13/2023) Bilirubin Urine Dipstick - Negative Blood Urine Dipstick - 2+ Moderate Glucose Urine Dipstick - Negative Ketones Urine Dipstick - Negative Leukocytes Urine Dipstick - Negative Nitrite Urine Dipstick - Negative Protein Urine Dipstick - Negative Specific [place] Urine Dipstick - 1.025 Urine Appearance Urine [...] including vitamins, herbs, eye drops, creams, and tnjr-sht-rqkmhgu medicines. ? Any problems you or family members have had with anesthetic medicines. ? Any blood disorders you have. ? Any surgeries you have had. ? Any m (more content not included)... [facility] Consent for Procedure/Surger yon 09-13-2023 Consent for Procedure/Surgery [id number]#1.00TIFF [facility] 36on 09-08-2023 36 Patient seen in the ER for a large kidney stone. Was prescribed Oxycodone medication for pain discomfort. Patient would like to know if this will be ok for her to get from pharmacy. Please advise [phone]. Thank you [facility] Consultation Noteon 08-23-20 Consultation Note [id number]#1.00TIFF [facility] Lab Reportson 08-23-2023 Lab Reports [id number]#1.00TIFF [facility] Consultation Noteon 08-20-20 Consultation Note [id number]#1.00TIFF [facility] Follow-Upon 08-19-2023 Follow-Up [id number] Madyson Moore 1980 F Date Provider Department Center 08/19/2023 Woody-ARJUN MINER [facility]IN [facility] Family History Problem Relation Age of Onset Brain cancer Mother Breast cancer Sister Kidney cancer Maternal Grandmother Prostate cancer Paternal Grandfather Cancer Father Cancer Sister Family Status - Relation Status Age at Mother Sister Maternal Grandmother Paternal Grandfather Father Sister Level of Service:15810 LA OFFICE/OUTPATIENT ESTABLISHED MOD MDM 30-39 MIN Reason for Visit and Comments: Follow-up [564852] - Chronic Left Knee Pain Normal [facility] Follow-Upon 07-20-2023 Follow-Up [id number] Madyson Moore 1980 F Date Provider Department Center 07/20/2023 ARJUN ROSE MP PAIN [facility] Family History Problem Relation Age of Onset Brain cancer Mother Breast cancer Sister Kidney cancer Maternal Grandmother Prostate cancer Paternal Grandfather Cancer Father Cancer Sister Family Status - Relation Status Age at Mother Sister Maternal Grandmother Paternal Grandfather Father Sister Level of Service:62658 [place] OFFICE/OUTPATIENT ESTABLISHED MOD MDM 30-39 MIN Reason for Visit and Comments: Follow-up [191436] - Left knee pain [facility] Orders Onlyon 07-07-2023 Orders Only [id number] TreesaMadyson ma 1980 Date Provider Department Center 07/07/2023 RUKHSANA ESPINOZA MP PAIN [facility] Family History Problem Relation Age of Onset Brain cancer Mother Breast cancer Sister Kidney cancer Maternal Grandmother Prostate cancer Paternal Grandfather Cancer Father Cancer Sister Family Status - Relation Status Age at Mother Sister Maternal Grandmother Paternal Grandfather Father Sister [facility] 36on 06-09-2023 36 Approving, but needs appt for additional refills. [facility] 36 Patient is cayla dsouza her [place] 5/325 refill, needs it before the weekend. Please and thank you so much. [facility] Follow-Upon 06-01-2023 Follow-Up [id number] Madyson Moore 1980 Date Provider Department Center 06/01/2023 ARJUN ROSE [facility] Family History Problem Relation Age of Onset Brain cancer Mother Breast cancer Sister Kidney cancer Maternal Grandmother Prostate cancer Paternal Grandfather Cancer Father Cancer Sister Family Status - Relation Status Age at Mother Sister Maternal Grandmother Paternal Grandfather Father Sister Level of Service:68008 [place] OFFICE/OUTPATIENT ESTABLISHED LOW MDM 20-29 MIN (GC) Reason for Visit and Comments: Med Management [[id number]] - Left Leg Pain No refills needed today [facility] Ferritinon 05-28-2023 Ferritin [Mass/Vol] 4.9 ng/mL Low 11.0-306.8 [facility] Comment on above: Result Comment: PERF ORMED BY: [facility] [address] [place] [address] PATHOLOGIST ONLINE COMMUNICATIONS MANAGER MELISSA WAGNER M.D. Performed By: #### S CAN CBC, JANESSA, FE and TIBC #### [facility] [address] [place] [address] Iron and TIBC Profileon 05-11 % Iron Saturation 2.5 % Low 20-50 [facility] Comment on above: Performed By: #### S CAN CBC, JANESSA, FE and TIBC #### [facility] [address] [place] [address] Iron [Mass/Vol] 13 ug/dL Low 50-212 [facility] Comment on above: Performed By: #### S CAN CBC, JANESSA, FE and TIBC #### [address] Total Iron Binding Capacity 517 ug/dL High 255-450 [facility] Comment on above: Performed By: #### S CAN CBC, JANESSA, FE and TIBC #### [address] Transferrin [Mass/Vol] 369 mg/dL High 203-362 [facility] Comment on above: Performed By: #### S CAN CBC, JANESSA, FE and TIBC #### [address] Scan and CBCon 05-28-2023 Anisocytosis Ql (Bld) Marked Normal [facility] Comment on above: Performed By: #### S CAN CBC, JANESSA, FE and TIBC #### [facility] [address] [place] [address] Basophils (Bld) [#/Vol] 0.0 10*3/uL Normal 0.0-0.2 [facility] Comment on above: Performed By: #### S CAN CBC, JANESSA, FE and TIBC #### [address] Basophils/100 WBC (Bld) 0.3 % Normal . [facility] Comment on above: Performed By: #### S CAN CBC, JANESSA, FE and TIBC #### [address] Eosinophils (Bld) [#/Vol] 0.0 10*3/uL Normal 0.0-0.45 [facility] Comment on above: Performed By: #### S CAN CBC, JANESSA, FE and TIBC #### [address] Eosinophils/100 WBC (Bld) 0.6 % Normal . [facility] Comment on above: Performed By: #### S CAN CBC, JANESSA, FE and TIBC #### [address] Erythrocyte distribution width (RBC) [Ratio] 20.1 % High 11.9-15.3 [facility] Comment on above: Performed By: #### S CAN CBC, JANESSA, FE and TIBC #### [address] Hematocrit (Bld) [Volume fraction] 28.6 % Low 34.0-46.4 [facility] Comment on above: Performed By: #### S CAN CBC, JANESSA, FE and TIBC #### [address] Hemoglobin (Bld) [Mass/Vol] 8.9 g/dL Low 11.8-15.4 [facility] Comment on above: Performed By: #### S CAN CBC, JANESSA, FE and TIBC #### [address] Hypochromasia Moderate Normal [facility] Comment on above: Performed By: #### S CAN CBC, JANESSA, FE and TIBC #### [address] Lymphocytes (Bld) [#/Vol] 2.6 10*3/uL Normal 1.00-4.8 [facility] Comment on above: Performed By: #### S CAN CBC, JANESSA, FE and TIBC #### [address] Lymphocytes/100 WBC (Bld) 37.7 % Normal . [facility] Comment on above: Performed By: #### S CAN CBC, JANESSA, FE and TIBC #### [facility] [address] MCH (RBC) [Entitic mass] 20.5 pg Low 24.7-34.3 [facility] Comment on above: Performed By: #### S CAN CBC, JANESSA, FE and TIBC #### [address] MCV (RBC) [Entitic vol] 65.8 fL Low 80-100 [facility] Comment on above: Performed By: #### S CAN CBC, JANESSA, FE and TIBC #### [address] Mean Corpuscular HGB Conc 31.1 g/dL Low 32.0-35.0 [facility] Comment on above: Performed By: #### S CAN CBC, JANESSA, FE and TIBC #### [address] Microcytosis Marked Normal [facility] Comment on above: Performed By: #### S CAN CBC, JANESSA, FE and TIBC #### [address] Monocytes (Bld) [#/Vol] 0.4 10*3/uL Normal 0.0-0.8 [facility] Comment on above: Performed By: #### S CAN CBC, JANESSA, FE and TIBC #### [address] Monocytes/100 WBC (Bld) 6.3 % Normal . [facility] Comment on above: Performed By: #### S CAN CBC, JANESSA, FE and TIBC #### [address] Neutrophils (Bld) [#/Vol] 3.8 10*3/uL Normal 1.8-7.7 [facility] Comment on above: Performed By: #### S CAN CBC, JANESSA, FE and TIBC #### [address] Neutrophils/100 WBC (Bld) 55.1 % Normal . [facility] Comment on above: Performed By: #### S CAN CBC, JANESSA, FE and TIBC #### [address] NRBC% 0.1 /100{WBC} Normal 0-0.5 [facility] Comment on above: Performed By: #### S CAN CBC, JANESSA, FE and TIBC #### [address] Ovalocytes Slight Normal [facility] Comment on above: Performed By: #### S CAN CBC, JANESSA, FE and TIBC #### [address] Platelet Estimate Normal Normal Normal [facility] Comment on above: Performed By: #### S CAN CBC, JANESSA, FE and TIBC #### [address] Platelet mean volume (Bld) [Entitic vol] 8.7 fL Normal 6.3-10.7 [facility] Comment on above: Performed By: #### S CAN CBC, JANESSA, FE and TIBC #### [address] Platelet Morphology Normal Normal Normal [facility] Comment on above: Result Comment: PERF ORMED BY: [place] [address] PATHOLOGIST ONLINE COMMUNICATIONS MANAGER MELISSA WAGNER M.D. Performed By: #### S CAN CBC, JANESSA, FE and TIBC #### [address] Platelets (Bld) [#/Vol] 218 10*3/uL Normal 150-450 [facility] Comment on above: Performed By: #### S CAN CBC, JANESSA, FE and TIBC #### [address] Poikilocytosis Slight Normal [facility] Comment on above: Performed By: #### S CAN CBC, JANESSA, FE and TIBC #### [address] [place] [address] [place] RBC (Bld) [#/Vol] 4.34 10*6/uL Normal 3.60-5.00 [facility] Comment on above: Performed By: #### S CAN CBC, JANESSA, FE and TIBC #### [facility] [address] Schistocytes Slight Normal [facility] Comment on above: Performed By: #### S CAN CBC, JANESSA, FE and TIBC #### [facility] [address] WBC (Bld) [#/Vol] 6.9 10*3/uL Normal 3.8-11.6 [facility] Comment on above: Performed By: #### S CAN CBC, JANESSA, FE and TIBC #### [facility] [address] 29on 05-04-2023 29 Addended by: ARJUN MINER on: 05/04/2023 11:37 AM Modules accepted: Level of Service Normal [facility] Follow-Upon 05-04-2023 Follow-Up [id number] Madyson Moore 1980 F Date Provider Department Center 05/04/2023 [facility]-ARJUN MINER [facility]IN [facility] Chart Close Cosign Required by: Arjun Miner MD[[id number]] Family History Problem Relation Age of Onset Brain cancer Mother Breast cancer Sister Kidney cancer Maternal Grandmother Prostate cancer Paternal Grandfather Cancer Father Cancer Sister Family Status - Relation Status Age at Mother Sister Maternal Grandmother Paternal Grandfather Father Sister Level of Service:99946 [place] POSTOP FOLLOW UP VISIT RELATED TO ORIGINAL PX Reason for Visit and Comments: Follow-up [503488] - S/P Jackson Implant 1 week post-op. Within the first few days her knee was 70% improvement in pain relief, while her incision site is still very sore at a 25% improvement since the procedure. Normal [facility] HPon 04-28-2023 HP History Of [...] MG tablet every 12 (twelve) hours. HYDROcodone-acetaminophen ([place]) 5-325 mg tablet Take 1 tablet by [...] meds will be given Arjun Miner MD [facility] OPNOTEon 04-28-2023 OPNOTE INSERTION, PULSE GENERATOR, SPINAL CORD STIMULATOR Operative Note Date: 04/28/2023 Location: [facility] Name: Elvi Moore, : 1980, Diagnosis Pre-op Diagnosis * Complex regional pain syndrome type 1 of left lower extremity [G90.522] Post-op Diagnosis * Complex regional pain syndrome type 1 of left lower extremity [G90.522] Procedures INSERTION, PULSE GENERATOR, SPINAL CORD STIMULATOR 19906 - LA INSJ/RPLCMT SPI NPGR DIR/INDUXIVE COUPLING LA PRQ IMPLTJ NSTIM ELECTRODE ARRAY EPIDURAL [36502] LA ELEC ADITYA IMPLT NPGT CPLX SP/PN PRGRMG [48273] Surgeons * Arjun Miner - Primary Procedure Summary Anesthesia: Monitor Anesthesia Care ASA: III Estimated Blood Loss: 10 mL Implants Type Name Action Serial No. SLIMTIP [employer]G Explanted [id number] [employer]G Implanted [id number] PROCLAIM DRG Implanted [id number] [employer]G Implanted [id number] Staff: Landscape Foreman: Phillip Meyer RN Scrub Person: [facility] [...] then introduced (more content not included)... Normal [facility] POCT GLUCOSE METER UNSOLICIT ED RESULTSon 04-28-2023 Glucose [Mass/Vol] 88 mg/dL Normal 70-105 [facility] Comment on above: Order Comment: Waive d Testing in the ED is performed under the ED CLIA certificate #[id number]. Result Comment: ngro bronwyn Performed By: #### L [id number] ####[facility] ([facility])[address] [place] [address] BASIC METABOLIC PANELon 07 Anion gap [Moles/Vol] 11 mmol/L Normal 7-20 [facility] Comment on above: Performed By: #### L [id number] #### [facility] ([facility]) [address] [place] [address] Calcium [Mass/Vol] 9.2 mg/dL Normal 8.6-10.3 [facility] Comment on above: Performed By: #### L [id number] #### [facility] ([facility]) [address] [place] [address] Chloride [Moles/Vol] 106 mmol/L Normal 98-107 [facility] Comment on above: Performed By: #### L [id number] #### [facility] ([facility]) [address] [place] [address] CO2 [Moles/Vol] 27 mmol/L Normal 21-31 [facility] Comment on above: Performed By: #### L [id number] #### [facility] ([facility]) [address] [place] [address] Creatinine [Mass/Vol] 0.76 mg/dL Normal 0.60-1.20 [facility] Comment on above: Performed By: #### L [id number] #### [facility] ([facility]) [address] [place] [address] GLOMERULAR FILTRATION RATE ML/MIN/1.73 SQ M.PREDICTED 100.9 mL/min/1.73m*2 Normal >60.0 [facility] Comment on above: Result Comment: [facility]???s estimated glomerular filtration rate (eGFR) [...] group of individuals. Performed By: #### L [id number] #### [facility] ([facility]) [address] [place] [address] Glucose [Mass/Vol] 64 mg/dL Low 70-100 [facility] Comment on above: Performed By: #### L [id number] #### [facility] ([facility]) [address] [place] [address] Potassium [Moles/Vol] 4.3 mmol/L Normal 3.5-5.1 [facility] Comment on above: Performed By: #### L [id number] #### [facility] ([facility]) [address] [place] [address] Sodium [Moles/Vol] 140 mmol/L Normal 136-145 [facility] Comment on above: Performed By: #### L [id number] #### [facility] ([facility]) [address] [place] [address] Urea nitrogen [Mass/Vol] 12 mg/dL Normal 7-25 [facility] Comment on above: Performed By: #### L [id number] #### [facility] [address] [place] [address] UREA NITROGEN/CREATININE (MASS RATIO) IN SER/PLAS 15.8 Normal [facility] Comment on above: Performed By: #### L [id number] #### [facility] ([facility]) [address] [place] [address] CBC WITH AUTO DIFFERENTIALon 04-15-2023 Erythrocyte distribution width (RBC) [Ratio] 17.9 % High 11.5-15.0 [facility] Comment on above: Performed By: #### L [id number] #### [facility] ([facility]) [address] [place] [address] ERYTHROCYTE MEAN CORPUSCULAR HEMOGLOBIN CONCENTRATION (G/DL) BY AUTOMATED 28.7 g/dL Low 32.0-35.0 [facility] Comment on above: Performed By: #### L [id number] #### [facility] ([facility]) [address] [place] [address] Hematocrit (Bld) [Volume fraction] 31.0 % Low 36.0-48.0 [facility] Comment on above: Performed By: #### L [id number] #### [facility] ([facility]) [address] [place] [address] Hemoglobin (Bld) [Mass/Vol] 8.9 g/dL Low 12.0-15.0 [facility] Comment on above: Performed By: #### L [id number] #### [facility] ([facility]) [address] [place] [address] MCH (RBC) [Entitic mass] 20.0 pg Low 27.0-33.0 [facility] Comment on above: Performed By: #### L [id number] #### [facility] ([facility]) [address] [place] [address] MCV (RBC) [Entitic vol] 69.5 fL Low 82.0-98.0 [facility] Comment on above: Performed By: #### L [id number] #### [facility] ([facility]) [address] [place] [address] NRBC (PER 100 WBCS) BY AUTOMATED COUNT 0.0 % Normal 0 [facility] Comment on above: Performed By: #### L [id number] #### [facility] [address] [place] [address] PLATELETS (10*3/UL) IN BLOOD AUTOMATED COUNT 294 10*3/uL Normal 150-400 [facility] Comment on above: Performed By: #### L [id number] #### [facility] [address] [place] [address] RBC (Bld) [#/Vol] 4.46 10*6/uL Normal 3.80-5.00 [facility] Comment on above: Performed By: #### L [id number] #### [facility] ([facility]) [address] [place] [address] WBC (Bld) [#/Vol] 4.65 10*3/uL Normal 4.00-10.60 [facility] Comment on above: Performed By: #### L [id number] #### [facility] ([facility]) [address] [place] [address] Labon 04-15-2023 Lab [id number] Modesto Moorenicole ma 1980 F Date Provider Department [place] 04/15/2023 2244-[facility] MP LAB RESOURCE MP DRAW Medical Pavi Family History Problem Relation Age of Onset Brain cancer Mother Breast cancer Sister Kidney cancer Maternal Grandmother Prostate cancer Paternal Grandfather Cancer Father Cancer Sister Family Status - Relation Status Age at Mother Sister Maternal Grandmother Paternal Grandfather Father Sister Normal [facility] MANUAL DIFFERENTIALon 2022 ANISOCYTOSIS PRESENCE IN BLOOD BY LIGHT MICROSCOPY Moderate Normal [facility] Comment on above: Performed By: #### L [id number] #### [facility] [address] [place] [address] BASOPHILS (10*3/UL) IN BLOOD BY CALCULATION 0.01 10*3/uL Normal 0.00-0.20 [facility] Comment on above: Performed By: #### L [id number] #### [facility] ([facility]) [address] [place] [address] BASOPHILS/100 LEUKOCYTES IN BLOOD BY AUTOMATED COUNT 0.2 % Normal 0.0-1.0 [facility] Comment on above: Performed By: #### L [id number] #### [facility] ([facility]) [address] [place] [address] EOSINOPHILS (10*3/UL) IN BLOOD BY CALCULATION 0.06 10*3/uL Normal 0.00-0.50 [facility] Comment on above: Performed By: #### L [id number] #### [facility] ([facility]) [address] [place] [address] EOSINOPHILS/100 LEUKOCYTES IN BLOOD BY AUTOMATED COUNT 1.3 % Normal 0.0-6.0 [facility] Comment on above: Performed By: #### L [id number] #### [facility] ([facility]) [address] [place] [address] HYPOCHROMIA (PRESENCE) IN BLOOD BY LIGHT MICROSCOPY Slight Normal [facility] Comment on above: Performed By: #### L [id number] #### [facility] ([facility]) [address] [place] [address] IMMATURE GRANULOCYTES (10*3/UL) IN BLOOD BY CALCULATION 0.01 10*3/uL Normal 0.00-0.20 [facility] Comment on above: Performed By: #### L [id number] #### [facility] ([facility]) [address] [place] [address] IMMATURE GRANULOCYTES/100 LEUKOCYTES IN BLOOD BY AUTOMATED COUNT 0.2 % Normal 0.0-1.0 [facility] Comment on above: Performed By: #### L [id number] #### [facility] ([facility]) [address] [place] [address] LYMPHOCYTES (10*3/UL) IN BLOOD BY CALCULATION 1.36 10*3/uL Normal 1.20-4.00 [facility] Comment on above: Performed By: #### L [id number] #### [facility] ([facility]) [address] [place] [address] LYMPHOCYTES/100 LEUKOCYTES IN BLOOD BY AUTOMATED COUNT 29.2 % Normal 20.0-45.0 [facility] Comment on above: Performed By: #### L [id number] #### [facility] ([facility]) [address] [place] [address] MICROCYTES (PRESENCE) IN BLOOD BY LIGHT MICROSCOPY Slight Normal [facility] Comment on above: Performed By: #### L [id number] #### [facility] ([facility]) [address] [place] [address] MONOCYTES (10*3/UL) IN BLOOD BY CALCUATION 0.33 10*3/uL Normal 0.10-1.00 [facility] Comment on above: Performed By: #### L [id number] #### [facility] ([facility]) [address] [place] [address] MONOCYTES/100 LEUKOCYTES IN BLOOD BY AUTOMATED COUNT 7.1 % Normal 5.0-12.0 [facility] Comment on above: Performed By: #### L [id number] #### [facility] ([facility]) [address] [place] [address] NEUTROPHILS (10*3/UL) IN BLOOD BY CALCULATION 2.9 10*3/uL Normal 1.6-7.6 [facility] Comment on above: Performed By: #### L [id number] #### [facility] ([facility]) [address] [place] [address] NEUTROPHILS/100 LEUKOCYTES IN BLOOD BY AUTOMATED COUNT 62.0 % Normal 40.0-72.0 [facility] Comment on above: Performed By: #### L [id number] #### [facility] [address] [place] [address] POIKILOCYTOSIS (PRESENCE) IN BLOOD BY LIGHT MICROSCOPY Slight Normal [facility] Comment on above: Performed By: #### L [id number] #### [facility] ([facility]) [address] [place] [address] POLYCHROMASIA IN BLOOD BY LIGHT MICROSCOPY Slight Normal [facility] Comment on above: Performed By: #### L [id number] #### [facility] ([facility]) [address] [place] [address] MRSA/MSSA DNA NASALon 2022 MRSA DNA Negative Normal Negative [facility] Comment on above: Order Comment: [...] preclude nasal colonization. Performed By: #### L [id number] #### [facility] ([facility]) [address] [place] [address] MSSA DNA Negative Normal Negative [facility] Comment on above: Order Comment: [...] preclude nasal colonization. Performed By: #### L [id number] #### [facility] ([facility]) [address] [place] [address] Orders Onlyon 04-15-2023 Orders Only [id number] Madyson Moore 1980 F Date Provider Department [place] 04/15/2023 RUKHSANA ESPINOZA PAIN Medical Pavi Family History Problem Relation Age of Onset Brain cancer Mother Breast cancer Sister Kidney cancer Maternal Grandmother Prostate cancer Paternal Grandfather Cancer Father Cancer Sister Family Status - Relation Status Age at Mother Sister Maternal Grandmother Paternal Grandfather Father Sister Normal [facility] PROTIME-INRon 04-15-2023 INR IN PPP BY COAGULATION ASSAY 0.99 Normal 0.90-1.10 [facility] Comment on above: Result Comment: [...] RANGE. CHEST 1995;[id number]. Performed By: #### L [id number] #### [facility] ([employer]) [address] [place] [address] PROTHROMBIN TIME (PT) IN PPP BY COAGULATION ASSAY 13.1 Seconds Normal 12.3-14.8 [facility] Comment on above: Performed By: #### L [id number] #### [facility] ([facility]) [address] [place] [address] Follow-Upon 03-17-2023 Follow-Up [id number] Madyson Moore 1980 F Date Provider Department Center 03/17/2023 170-RUKHSANA MILLER MP PAIN Medical Pavi Family History Problem Relation Age of Onset Brain cancer Mother Breast cancer Sister Kidney cancer Maternal Grandmother Prostate cancer Paternal Grandfather Cancer Father Cancer Sister Family Status - Relation Status Age at Mother Sister Maternal Grandmother Paternal Grandfather Father Sister Level of Service:[id number] LA OFFICE/OUTPATIENT ESTABLISHED LOW MDM 20-29 MIN Reason for Visit and Comments: Follow-up [[id number]] Normal [facility] Orders Onlyon 03-05-2023 Orders Only [id number] Madyson Moore 1980 F Date Provider Department Center 03/05/2023 274-ARJUN MINER MP PROC Medical Pavi Family History Problem Relation Age of Onset Brain cancer Mother Breast cancer Sister Kidney cancer Maternal Grandmother Prostate cancer Paternal Grandfather Cancer Father Cancer Sister Family Status - Relation Status Age at Mother Sister Maternal Grandmother Paternal Grandfather Father Sister [facility] Follow-Upon 02-18-2023 Follow-Up [id number] Madyson Moore ma 1980 F Date Provider Department Center 02/18/2023 170-RUKHSANA MILLER MP PAIN Medical Pavi Family History Problem Relation Age of Onset Brain cancer Mother Breast cancer Sister Kidney cancer Maternal Grandmother Prostate cancer Paternal Grandfather Cancer Father Cancer Sister Family Status - Relation Status Age at Mother Sister Maternal Grandmother Paternal Grandfather Father Sister Level of Service:[id number] LA OFFICE/OUTPATIENT ESTABLISHED LOW MDM 20-29 MIN Reason for Visit and Comments: Follow-up [[id number]] - LEAD ELIUD [facility] HPon 02-11-2023 HP History Of Present Illness [...] unremarkable. 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 Past History of Treatments: Patient has tried other professional care of: OPPT (last performed in 07/2022) Trialed medications: Ibuprofen Current Medications for Associated Pain: [place] 5/325, Amitriptyline 50 qhs Procedures performed previously: [...] strength exam (more content not included)... Normal [facility] BASIC METABOLIC PANELon 05-0 Anion gap [Moles/Vol] 10 mmol/L Normal 7-20 [facility] Comment on above: Performed By: #### L [id number] #### [facility] ([facility]) [address] [place] [address] Calcium [Mass/Vol] 8.8 mg/dL Normal 8.6-10.3 [facility] Comment on above: Performed By: #### L [id number] #### [facility] ([facility]) [address] [place] [address] Chloride [Moles/Vol] 106 mmol/L Normal 98-107 [facility] Comment on above: Performed By: #### L [id number] #### [facility] ([facility]) [address] [place] [address] CO2 [Moles/Vol] 29 mmol/L Normal 21-31 [facility] Comment on above: Performed By: #### L [id number] #### [facility] ([facility]) [address] [place] [address] Creatinine [Mass/Vol] 0.72 mg/dL Normal 0.60-1.20 [facility] Comment on above: Performed By: #### L [id number] #### [facility] ([facility]) [address] [place] [address] GLOMERULAR FILTRATION RATE ML/MIN/1.73 SQ M.PREDICTED 107.7 mL/min/1.73m*2 Normal >60.0 [facility] Comment on above: Result Comment: [facility]???s estimated glomerular filtration rate (eGFR) [...] group of individuals. Performed By: #### L [id number] #### [facility] ([facility]) [address] [place] [address] Glucose [Mass/Vol] 65 mg/dL Low 70-100 [facility] Comment on above: Performed By: #### L [id number] #### [facility] ([facility]) [address] [place] [address] Potassium [Moles/Vol] 4.1 mmol/L Normal 3.5-5.1 [facility] Comment on above: Performed By: #### L [id number] #### [facility] ([facility]) [address] [place] [address] Sodium [Moles/Vol] 141 mmol/L Normal 136-145 [facility] Comment on above: Performed By: #### L [id number] #### [facility] ([facility]) [address] [place] [address] Urea nitrogen [Mass/Vol] 13 mg/dL Normal 7-25 [facility] Comment on above: Performed By: #### L [id number] #### [facility] ([facility]) [address] [place] [address] UREA NITROGEN/CREATININE (MASS RATIO) IN SER/PLAS 18.1 Normal [facility] Comment on above: Performed By: #### L [id number] #### [facility] ([facility]) [address] [place] [address] CBCon 02-08-2023 Erythrocyte distribution width (RBC) [Ratio] 17.0 % High 11.5-15.0 [facility] Comment on above: Performed By: #### L [id number] ####[facility] ([facility])[address] [place] [address] ERYTHROCYTE MEAN CORPUSCULAR HEMOGLOBIN CONCENTRATION (G/DL) BY AUTOMATED 28.3 g/dL Low 32.0-35.0 [facility] Comment on above: Performed By: #### L [id number] ####[facility] (BE[facility]ER)[address] [place] [address] Hematocrit (Bld) [Volume fraction] 31.8 % Low 36.0-48.0 [facility] Comment on above: Performed By: #### L [id number] ####[facility] (BEAKER)[address] [place] [address] Hemoglobin (Bld) [Mass/Vol] 9.0 g/dL Low 12.0-15.0 [facility] Comment on above: Performed By: #### L [id number] ####[facility] (BE[facility]ER)[address] [place] [address] MCH (RBC) [Entitic mass] 19.9 pg Low 27.0-33.0 [facility] Comment on above: Performed By: #### L [id number] ####[facility] ([facility])[address] [place] [address] MCV (RBC) [Entitic vol] 70.4 fL Low 82.0-98.0 [facility] Comment on above: Performed By: #### L [id number] ####[facility] ([facility])[address] [place] [address] PLATELETS (10*3/UL) IN BLOOD AUTOMATED COUNT 259 10*3/uL Normal 150-400 [facility] Comment on above: Performed By: #### L [id number] ####[facility] ([facility])[address] [facility] [address] RBC (Bld) [#/Vol] 4.52 10*6/uL Normal 3.80-5.00 [facility] Comment on above: Performed By: #### L [id number] ####[facility] ([facility])[address] [facility] [address] WBC (Bld) [#/Vol] 5.59 10*3/uL Normal 4.00-10.60 [facility] Comment on above: Performed By: #### L [id number] ####[facility] ([facility] [place] [address] Labon 02-08-2023 Lab [id number] Madyson Moore 1980 F Date Provider Department Center 02/08/2023 2244-[facility] MP LAB RESOURCE MP DRAW Medical Pavi Family History Problem Relation Age of Onset Brain cancer Mother Breast cancer Sister Kidney cancer Maternal Grandmother Prostate cancer Paternal Grandfather Cancer Father Cancer Sister Family Status - Relation Status Age at Mother Sister Maternal Grandmother Paternal Grandfather Father Sister Normal [facility] MRSA/MSSA DNA NASALon 2022 MRSA DNA Negative Normal Negative [facility] Comment on above: Performed By: #### L [id number] ####[facility] ([facility])[address] [place] [address] MSSA DNA Negative Normal Negative [facility] Comment on above: Performed By: #### L [id number] ####[facility] ([facility])[address] [place] [address] Orders Onlyon 01-29-2023 Orders Only [id number] Madyson Moore ma 1980 F Date Provider Department Center 01/29/2023 RUKHSANA ESPINOZA MP PAIN Medical Pavi Family History Problem Relation Age of Onset Brain cancer Mother Breast cancer Sister Kidney cancer Maternal Grandmother Prostate cancer Paternal Grandfather Cancer Father Cancer Sister Family Status - Relation Status Age at Mother Sister Maternal Grandmother Paternal Grandfather Father Sister Normal [facility] AMYLASEon 01-25-2023 Amylase [Catalytic activity/Vol] 64 U/L Normal 25-115 [facility] Comment on above: Performed By: #### B MP, LIPA, YVETTE, LIVER #### [facility] [address] [place] [address] Dr. Idania Roldan CBC AUTO DIFFon 01-25-2023 BASO # 0.0 103/ul Normal 0.0-0.1 [facility] Comment on above: Performed By: #### B MP, LIPA, YVETTE, LIVER #### [facility] [address] [place] [address] Dr. Idania Roldan Basophils/100 WBC (Bld) 0.3 % Normal 0.2-2.0 [facility] Comment on above: Performed By: #### B MP, LIPA, YVETTE, LIVER #### [facility] [address] [address] [address] Idania Roldan EO # 0.1 103/ul Normal 0.0-0.7 [facility] Comment on above: Performed By: #### B MP, LIPA, YVETTE, LIVER #### [facility] [address] [place] [address] Dr. Idania Roldan Eosinophils/100 WBC (Bld) 1.0 % Normal 0.9-7.0 [facility] Comment on above: Performed By: #### B MP, LIPA, YVETTE, LIVER #### [facility] [address] [place] [address] Dr. Idania Roldan Erythrocyte distribution width (RBC) [Ratio] 17.2 % Critically high 11.0-15.0 [facility] Comment on above: Performed By: #### B MP, LIPA, YVETTE, LIVER #### [facility] [address] [place] [address] Dr. Idania Roldan Hematocrit (Bld) [Volume fraction] 33.9 % Critically low 36.0-48.0 [facility] Comment on above: Performed By: #### B MP, LIPA, YVETTE, LIVER #### [facility] [address] [place] [address] Dr. Idania Roldan Hemoglobin (Bld) [Mass/Vol] 10.1 g/dL Critically low 12.0-16.0 [facility] Comment on above: Performed By: #### B MP, LIPA, YVETTE, LIVER #### [facility] [address] [place] [address] Dr. Idania Roldan IG # 0.01 10e3/ul Normal 0.00-0.03 [facility] Comment on above: Performed By: #### B MP, LIPA, YVETTE, LIVER #### [facility] [address] [place] [address] Dr. Idania Roldan IG % 0.2 % Normal 0.0-0.5 [facility] Comment on above: Performed By: #### B MP, LIPA, YVETTE, LIVER #### [facility] [address] [place] [address] Dr. Idania Roldan LYMPH # 1.7 103/ul Normal 1.2-3.8 [facility] Comment on above: Performed By: #### B MP, LIPA, YVETTE, LIVER #### [facility] [address] [place] [address] Dr. Idania Roldan Lymphocytes/100 WBC (Bld) 27.9 % Normal 20.5-60.0 [facility] Comment on above: Performed By: #### B MP, LIPA, YVETTE, LIVER #### [facility] [address] [place] [address] Dr. Idania Roldan MANUAL DIFF REQ NO Normal [facility] Comment on above: Performed By: #### B MP, LIPA, YVETTE, LIVER #### [facility] [address] [place] [address] Dr. Idania Roldan MCH (RBC) [Entitic mass] 20.7 pg Critically low 26.7-34.0 [facility] Comment on above: Performed By: #### B MP, LIPA, YVETTE, LIVER #### [facility] [address] [place] [address] Dr. Idania Roldan MCHC (RBC) [Mass/Vol] 29.8 g/dL Critically low 29.9-35.2 [facility] Comment on above: Performed By: #### B MP, LIPA, YVETTE, LIVER #### [facility] [address] [place] [address] Dr. Idania Roldan MCV (RBC) [Entitic vol] 69.6 fL Critically low 81.0-99.0 [facility] Comment on above: Performed By: #### B MP, LIPA, YVETTE, LIVER #### [facility] [address] [place] [address] Dr. Idania Roldan MONO # 0.4 103/ul Normal 0.3-0.8 [facility] Comment on above: Performed By: #### B MP, LIPA, YVETTE, LIVER #### [facility] [address] [place] [address] Dr. Idania Roldan Monocytes/100 WBC (Bld) 7.1 % Normal 1.7-12.0 [facility] Comment on above: Performed By: #### B MP, LIPA, YVETTE, LIVER #### [facility] [address] [place] [address] Dr. dIania Roldan NEUT # 3.8 103/ul Normal 1.4-6.5 [facility] Comment on above: Performed By: #### B MP, LIPA, YVETTE, LIVER #### [facility] [address] [place] [address] Dr. Idania Roldan Neutrophils/100 WBC (Bld) 63.5 % Normal 43.0-75.0 [facility] Comment on above: Performed By: #### B MP, LIPA, YVETTE, LIVER #### [facility] [address] [address] [address] Idania Roldan Platelet mean volume (Bld) [Entitic vol] 9.3 fL Critically low 9.5-13.5 [facility] Comment on above: Performed By: #### B MP, LIPA, YVETTE, LIVER #### [facility] [address] [address] [address] Idania Roldan PLT 294 103/ul Normal 150-450 [facility] Comment on above: Performed By: #### B MP, LIPA, YVETTE, LIVER #### [facility] [address] [address] [address] Idania Roldan RBC 4.87 106/ul Normal 4.20-5.40 [facility] Comment on above: Performed By: #### B MP, LIPA, YVETTE, LIVER #### [facility] [address] [address] [address] Idania Roldan WBC 6.0 103/ul Normal 4.0-11.0 [facility] Comment on above: Performed By: #### B MP, LIPA, YVETTE, LIVER #### [facility] [address] ABD/PELVIS WO CONon [...] VEDA BOND Date: 2023-01-25 12:20 Normal [facility] ER URINE PROFILEon 3 Bilirubin Ql (U) SMALL Abnormal NEGATIVE [facility] Comment on above: Performed By: #### B MP, LIPA, YVETTE, LIVER #### [facility] [address] [place] [address] Dr. Idania Roldan Clarity (U) CLEAR Normal CLEAR [facility] Comment on above: Performed By: #### B MP, LIPA, YVETTE, LIVER #### [facility] [address] [address] [address] Idania Roldan Color (U) DK. YELLOW Normal YELLOW [facility] Comment on above: Performed By: #### B MP, LIPA, YVETTE, LIVER #### [facility] [address] [place] [address] Dr. Idania MENDOSA A micrscopic examina tion will be performed if indicated. Normal [facility] Comment on above: Performed By: #### B MP, LIPA, YVETTE, LIVER #### [facility] [address] [address] [address] Idania Roldan Glucose Ql (U) Negative Normal NEGATIVE [facility] Comment on above: Performed By: #### B MP, LIPA, YVETTE, LIVER #### [facility] [address] [address] [address] Idania Roldan Hemoglobin Ql (U) LARGE Abnormal NEGATIVE [facility] Comment on above: Performed By: #### B MP, LIPA, YVETTE, LIVER #### [facility] [address] [address] [address] Idania Roldan Ketones Ql (U) TRACE Abnormal NEGATIVE [facility] Comment on above: Performed By: #### B MP, LIPA, YVETTE, LIVER #### [facility] [address] [place] [address] Dr. Idania Roldan LEUKOCYTES Negative Normal NEGATIVE [facility] Comment on above: Performed By: #### B MP, LIPA, YVETTE, LIVER #### [facility] [address] [place] [address] Dr. Idania Roldan Nitrite Ql (U) Negative Normal NEGATIVE [facility] Comment on above: Performed By: #### B MP, LIPA, YVETTE, LIVER #### [facility] [address] [place] [address] Dr. Idania Roldan pH (U) 5.0 [pH] Normal 5-9 [facility] Comment on above: Performed By: #### B MP, LIPA, YVETTE, LIVER #### [facility] [address] [place] [address] Dr. Idania Roldan SPEC GRAVITY >=1.030 Abnormal 1.005-<=1.02 5 [facility] Comment on above: Performed By: #### B MP, LIPA, YVETTE, LIVER #### [facility] [address] [place] [address] Dr. Idania Roldan UA PROTEIN TRACE Normal NEGATIVE/ TRACE [facility] Comment on above: Performed By: #### B MP, LIPA, YVETTE, LIVER #### [facility] [address] [place] [address] Dr. Idania Roldan UR MICRO IND INDICATED Normal [facility] Comment on above: Performed By: #### B MP, LIPA, YVETTE, LIVER #### [facility] [address] [place] [address] Dr. Idania Roldan Urobilinogen Qn (U) 0.2 {Bryan'U}/dL Normal 0.2 - 1. 0 [facility] Comment on above: Performed By: #### B MP, LIPA, YVETTE, LIVER #### [facility] [address] [place] [address] Dr. Idania Roldan LIPASEon 01-25-2023 Lipase [Catalytic activity/Vol] 226.0 U/L Normal 73.0-393.0 [facility] Comment on above: Performed By: #### B MP, LIPA, YVETTE, LIVER #### [facility] [address] [address] [address] Idania Roldan LIVER PROFILEon 01-25-2023 Albumin [Mass/Vol] 4.1 g/dL Normal 3.4-5.0 [facility] Comment on above: Performed By: #### B MP, LIPA, YVETTE, LIVER #### [facility] [address] [address] [address] Idania Roldan Albumin/Globulin [Mass ratio] 0.9 {ratio} Normal [facility] Comment on above: Performed By: #### B MP, LIPA, YVETTE, LIVER #### [facility] [address] [address] [address] Idania Roldan ALP [Catalytic activity/Vol] 110 U/L Normal 46-116 [facility] Comment on above: Performed By: #### B MP, LIPA, YVETTE, LIVER #### [facility] [address] [address] [address] Idania Roldan ALT [Catalytic activity/Vol] 20 U/L Normal 14-59 [facility] Comment on above: Performed By: #### B MP, LIPA, YVETTE, LIVER #### [facility] [address] [address] [address] Idania Roldan AST [Catalytic activity/Vol] 11 U/L Critically low 15-37 [facility] Comment on above: Performed By: #### B MP, LIPA, YVETTE, LIVER #### [facility] [address] [address] [address] Idania Roldan BILI, CONJUGATED 0.1 mg/dL Normal 0.0-0.2 [facility] Comment on above: Performed By: #### B MP, LIPA, YVETTE, LIVER #### [facility] [address] [address] [address] Idania Roldan Bilirubin [Mass/Vol] 0.3 mg/dL Normal 0.2-1.0 [facility] Comment on above: Performed By: #### B MP, LIPA, YVETTE, LIVER #### [facility] [address] [place] [address] Dr. Idania Roldan Globulin (S) [Mass/Vol] 4.4 g/dL Normal [facility] Comment on above: Performed By: #### B MP, LIPA, YVETTE, LIVER #### [facility] [address] [place] [address] Dr. Idania Roldan Protein [Mass/Vol] 8.5 g/dL Critically high 6.4-8.2 [facility] Comment on above: Performed By: #### B MP, LIPA, YVETTE, LIVER #### [facility] [address] [place] [address] Dr. Idania Roldan PROF CHEM 8 (BAS METB)on Anion gap [Moles/Vol] 13.5 mmol/L Normal [facility] Comment on above: Performed By: #### B MP, LIPA, YVETTE, LIVER #### [facility] [address] [place] [address] Dr. Idania Roldan Calcium [Mass/Vol] 9.3 mg/dL Normal 8.5-10.1 [facility] Comment on above: Performed By: #### B MP, LIPA, YVETTE, LIVER #### [facility] [address] [place] [address] Dr. Idania Roldan Chloride [Moles/Vol] 105 mmol/L Normal 98-107 [facility] Comment on above: Performed By: #### B MP, LIPA, YVETTE, LIVER #### [facility] [address] [place] [address] Dr. Idania Roldan CO2 [Moles/Vol] 27.2 mmol/L Normal 21.0-32.0 [facility] Comment on above: Performed By: #### B MP, LIPA, YVETTE, LIVER #### [facility] [address] [place] [address] Dr. Idania Roldan Creatinine [Mass/Vol] 0.74 mg/dL Normal 0.55-1.02 [facility] Comment on above: Performed By: #### B MP, LIPA, YVETTE, LIVER #### [facility] [address] [place] [address] Dr. Idania Roldan EGFR-AF WALLISIAN >60 Normal >=60 [facility] Comment on above: Performed By: #### B MP, LIPA, YVETTE, LIVER #### [facility] [address] [address] [address] Idania Roldan EGFR-NON AF WALLISIAN >60 Normal >=60 [facility] Comment on above: Performed By: #### B MP, LIPA, YVETTE, LIVER #### [facility] [address] [place] [address] Dr. Idania Roldan Glucose [Mass/Vol] 97 mg/dL Normal 74-106 [facility] Comment on above: Performed By: #### B MP, LIPA, YVETTE, LIVER #### [facility] [address] [place] [address] Dr. Idania Roldan Potassium [Moles/Vol] 3.7 mmol/L Normal 3.5-5.1 [facility] Comment on above: Performed By: #### B MP, LIPA, YVETTE, LIVER #### [facility] [address] [place] [address] Dr. Idania Roldan Sodium [Moles/Vol] 142 mmol/L Normal 136-145 [facility] Comment on above: Performed By: #### B MP, LIPA, YVETTE, LIVER #### [facility] [address] [place] [address] Dr. Idania Roldan Urea nitrogen [Mass/Vol] 13.0 mg/dL Normal 7.0-18.0 [facility] Comment on above: Performed By: #### B MP, LIPA, YVETTE, LIVER #### [facility] [address] [place] [address] Dr. Idania Roldan Urea nitrogen/Creatinine [Mass ratio] 17.6 mg/mg Normal [facility] Comment on above: Performed By: #### B MP, LIPA, YVETTE, LIVER #### [facility] [address] [place], [place] [id number] Dr. Idania Roldan URINE MICROSCOPIC ONLYon BACTERIA NONE SEEN Normal NONE SEEN [facility] Comment on above: Performed By: #### B MP, LIPA, YVETTE, LIVER #### [facility] [address] [place] [address] Dr. Idania Roldan Bacteria identified Cx Nom (U) NOT INDICATED Normal [facility] Comment on above: Performed By: #### B MP, LIPA, YVETTE, LIVER #### [facility] [address] [place] [address] Dr. Idania Roldan CAST NONE SEEN Normal NONE SEEN [facility] Comment on above: Performed By: #### B MP, LIPA, YVETTE, LIVER #### [facility] [address] [place] [address] Dr. Idania Roldan Crystals LM Nom (Urine sed) NONE SEEN Normal NONE SEEN [facility] Comment on above: Performed By: #### B MP, LIPA, YVETTE, LIVER #### [facility] [address] [place] [address] Dr. Idania Roldan Epithelial cells LM Ql (Urine sed) FEW Abnormal NONE SEEN /RARE [facility] Comment on above: Performed By: #### B MP, LIPA, YVETTE, LIVER #### [facility] [address] [place] [address] Dr. Idania Roldan MUCOUS NONE SEEN Normal NONE SEEN [facility] Comment on above: Performed By: #### B MP, LIPA, YVETTE, LIVER #### [facility] [address] [place] [address] Dr. Idania Roldan RBC (U) [#/Vol] /uL Abnormal 0-2 [facility] Comment on above: Performed By: #### B MP, LIPA, YVETTE, LIVER #### [facility] [address] [place] [address] Dr. Idania Roldan WBC NONE SEEN Normal NONE SEEN [facility] Comment on above: Performed By: #### B MP, LIPA, YVETTE, LIVER #### [facility] [address] [place] [address] Dr. Idania Roldan XR KUB 1 VIEWon [...] DENILSON AUSTIN Date: 2023-01-24 19:51 Normal [facility] AMYLASEon 01-21-2023 Amylase [Catalytic activity/Vol] 64 U/L Normal 25-115 [facility] Comment on above: Performed By: #### P T, PTT #### [facility] [address] [place] [address] Dr. Idania Roldan CBC AUTO DIFFon 01-21-2023 BASO # 0.0 103/ul Normal 0.0-0.1 [facility] Comment on above: Performed By: #### B MP, LIPA, YVETTE, LIVER #### [facility] [address] [place] [address] Dr. Idania Roldan Basophils/100 WBC (Bld) 0.2 % Normal 0.2-2.0 [facility] Comment on above: Performed By: #### B MP, LIPA, YVETTE, LIVER #### [facility] [address] [place] [address] Dr. Idania Roldan EO # 0.1 103/ul Normal 0.0-0.7 [facility] Comment on above: Performed By: #### B MP, LIPA, YVETTE, LIVER #### [facility] [address] [place] [address] Dr. Idania Roldan Eosinophils/100 WBC (Bld) 0.9 % Normal 0.9-7.0 [facility] Comment on above: Performed By: #### B MP, LIPA, YVETTE, LIVER #### [facility] [address] [place] [address] Dr. Idania Roldan Erythrocyte distribution width (RBC) [Ratio] 17.2 % Critically high 11.0-15.0 [facility] Comment on above: Performed By: #### B MP, LIPA, YVETTE, LIVER #### [facility] [address] [place] [address] Dr. Idania Roldan Hematocrit (Bld) [Volume fraction] 32.5 % Critically low 36.0-48.0 [facility] Comment on above: Performed By: #### B MP, LIPA, YVETTE, LIVER #### [facility] [address] [place] [address] Dr. Idania Roldan Hemoglobin (Bld) [Mass/Vol] 9.5 g/dL Critically low 12.0-16.0 [facility] Comment on above: Performed By: #### B MP, LIPA, YVETTE, LIVER #### [facility] [address] [place] [address] Dr. Idania oRldan IG # 0.01 10e3/ul Normal 0.00-0.03 [facility] Comment on above: Performed By: #### B MP, LIPA, YVETTE, LIVER #### [facility] [address] [place] [address] Dr. Idania Roldan IG % 0.2 % Normal 0.0-0.5 [facility] Comment on above: Performed By: #### B MP, LIPA, YVETTE, LIVER #### [facility] [address] [place] [address] Dr. Idania Roldan LYMPH # 2.0 103/ul Normal 1.2-3.8 [facility] Comment on above: Performed By: #### B MP, LIPA, YVETTE, LIVER #### [facility] [address] [place] [address] Dr. Idania Roldan Lymphocytes/100 WBC (Bld) 34.7 % Normal 20.5-60.0 [facility] Comment on above: Performed By: #### B MP, LIPA, YVETTE, LIVER #### [facility] [address] [place] [address] Dr. Idania Roldan MANUAL DIFF REQ NO Normal [facility] Comment on above: Performed By: #### B MP, LIPA, YVETTE, LIVER #### [facility] [address] [place] [address] Dr. Idania Roldan MCH (RBC) [Entitic mass] 20.5 pg Critically low 26.7-34.0 [facility] Comment on above: Performed By: #### B MP, LIPA, YVETTE, LIVER #### [facility] [address] [place] [address] Dr. Idania Roldan MCHC (RBC) [Mass/Vol] 29.2 g/dL Critically low 29.9-35.2 [facility] Comment on above: Performed By: #### B MP, LIPA, YVETTE, LIVER #### [facility] [address] [place] [address] Dr. Idania Roldan MCV (RBC) [Entitic vol] 70.2 fL Critically low 81.0-99.0 [facility] Comment on above: Performed By: #### B MP, LIPA, YVETTE, LIVER #### [facility] [address] [place] [address] Dr. Idania Roldan MONO # 0.5 103/ul Normal 0.3-0.8 [facility] Comment on above: Performed By: #### B MP, LIPA, YVETTE, LIVER #### [facility] [address] [place] [address] Dr. Idania Roldan Monocytes/100 WBC (Bld) 8.7 % Normal 1.7-12.0 [facility] Comment on above: Performed By: #### B MP, LIPA, YVETTE, LIVER #### [facility] [address] [place] [address] Dr. Idania Roldan NEUT # 3.2 103/ul Normal 1.4-6.5 [facility] Comment on above: Performed By: #### B MP, LIPA, YVETTE, LIVER #### [facility] [address] [place] [address] Dr. Idania Roldan Neutrophils/100 WBC (Bld) 55.3 % Normal 43.0-75.0 [facility] Comment on above: Performed By: #### B MP, LIPA, YVETTE, LIVER #### [facility] [address] [place] [address] Dr. Idania Roldan Platelet mean volume (Bld) [Entitic vol] 9.7 fL Normal 9.5-13.5 [facility] Comment on above: Performed By: #### B MP, LIPA, YVETTE, LIVER #### [facility] [address] [place] [address] Dr. Idania Roldan PLT 310 103/ul Normal 150-450 [facility] Comment on above: Performed By: #### B MP, LIPA, YVETTE, LIVER #### [facility] [address] [place] [address] Dr. Idania Roldan RBC 4.63 106/ul Normal 4.20-5.40 [facility] Comment on above: Performed By: #### B MP, LIPA, YVETTE, LIVER #### [facility] [address] [place] [address] Dr. Idania Roldan WBC 5.8 103/ul Normal 4.0-11.0 [facility] Comment on above: Performed By: #### B MP, LIPA, YVETTE, LIVER #### [facility] [address] [place] [address] Dr. Idania Roldan CULTURE URINEon 01-21-2023 CULTURE URINE Culture Observations : MODERATE GROWTH OF MIXED GENITAL ALE. NO POTENTIAL PATHOGENS SEEN. Normal [facility] Comment on above: Performed By: #### P T, PTT #### [facility] [address] [place] [address] Dr. Idania Roldan LIPASEon 01-21-2023 Lipase [Catalytic activity/Vol] 251.0 U/L Normal 73.0-393.0 [facility] Comment on above: Performed By: #### P T, PTT #### [facility] [address] [place] [address] Dr. Idania Roldan PROF 14(COMP METB)on 023 Albumin [Mass/Vol] 3.8 g/dL Normal 3.4-5.0 [facility] Comment on above: Performed By: #### P T, PTT #### [facility] [address] [address] [address] Idania Roldan Albumin/Globulin [Mass ratio] 1.0 {ratio} Normal [facility] Comment on above: Performed By: #### P T, PTT #### [facility] [address] [address] [address] Idania Roldan ALP [Catalytic activity/Vol] 107 U/L Normal 46-116 [facility] Comment on above: Performed By: #### P T, PTT #### [facility] [address] [address] [address] Idania Roldan ALT [Catalytic activity/Vol] 17 U/L Normal 14-59 [facility] Comment on above: Performed By: #### P T, PTT #### [facility] [address] [place] [address] Dr. Idania Roldan Anion gap [Moles/Vol] 13.3 mmol/L Normal [facility] Comment on above: Performed By: #### P T, PTT #### [facility] [address] [place] [address] Dr. Idania Roldan AST [Catalytic activity/Vol] 9 U/L Critically low 15-37 [facility] Comment on above: Performed By: #### P T, PTT #### [facility] [address] [place] [address] Dr. Idania Roldan Bilirubin [Mass/Vol] 0.3 mg/dL Normal 0.2-1.0 [facility] Comment on above: Performed By: #### P T, PTT #### [facility] [address] [address] [address] Idania Roldan Calcium [Mass/Vol] 9.0 mg/dL Normal 8.5-10.1 [facility] Comment on above: Performed By: #### P T, PTT #### [facility] [address] [address] [address] Idania Roldan Chloride [Moles/Vol] 103 mmol/L Normal 98-107 [facility] Comment on above: Performed By: #### P T, PTT #### [facility] [address] [address] [address] Idania Roldan CO2 [Moles/Vol] 28.2 mmol/L Normal 21.0-32.0 [facility] Comment on above: Performed By: #### P T, PTT #### [facility] [address] [place] [address] Dr. dIania Roldan Creatinine [Mass/Vol] 0.81 mg/dL Normal 0.55-1.02 [facility] Comment on above: Performed By: #### P T, PTT #### [facility] [address] [place] [address] Dr. Idania Roldan EGFR-AF WALLISIAN >60 Normal >=60 [facility] Comment on above: Performed By: #### P T, PTT #### [facility] [address] [place] [address] Dr. Idania Roldan EGFR-NON AF WALLISIAN >60 Normal >=60 [facility] Comment on above: Performed By: #### P T, PTT #### [facility] [address] [place] [address] Dr. Idania Roldan Globulin (S) [Mass/Vol] 3.9 g/dL Normal [facility] Comment on above: Performed By: #### P T, PTT #### [facility] [address] [place] [address] Dr. Idania Roldan Glucose [Mass/Vol] 93 mg/dL Normal 74-106 [facility] Comment on above: Performed By: #### P T, PTT #### [facility] [address] [place] [address] Dr. Idania Roldan Potassium [Moles/Vol] 3.5 mmol/L Normal 3.5-5.1 [facility] Comment on above: Performed By: #### P T, PTT #### [facility] [address] [place] [address] Dr. Idania Roldan Protein [Mass/Vol] 7.7 g/dL Normal 6.4-8.2 [facility] Comment on above: Performed By: #### P T, PTT #### [facility] [address] [address] [address] Idania Roldan Sodium [Moles/Vol] 141 mmol/L Normal 136-145 [facility] Comment on above: Performed By: #### P T, PTT #### [facility] [address] [address] [address] Idania Roldan Urea nitrogen [Mass/Vol] 11.0 mg/dL Normal 7.0-18.0 [facility] Comment on above: Performed By: #### P T, PTT #### [facility] [address] [address] [address] Idania Roldan Urea nitrogen/Creatinine [Mass ratio] 13.6 mg/mg Normal [facility] Comment on above: Performed By: #### P T, PTT #### [facility] [address] [place] [address] Dr. Idania Roldan UA RANDOM W/MICROSCOPICon BACTERIA SMALL Abnormal NONE SEEN [facility] Comment on above: Performed By: #### B MP, LIPA, YVETTE, LIVER #### [facility] [address] [place] [address] Dr. Idania Roldan Bilirubin Ql (U) SMALL Abnormal NEGATIVE [facility] Comment on above: Performed By: #### B MP, LIPA, YVETTE, LIVER #### [facility] [address] [place] [address] Dr. Idania Roldan CAST NONE SEEN Normal NONE SEEN [facility] Comment on above: Performed By: #### B MP, LIPA, YVETTE, LIVER #### [facility] [address] [place] [address] Dr. Idania Roldan Clarity (U) CLEAR Normal CLEAR [facility] Comment on above: Performed By: #### B MP, LIPA, YVETTE, LIVER #### [facility] [address] [place] [address] Dr. Idania Roldan Color (U) DK. YELLOW Normal YELLOW [facility] Comment on above: Performed By: #### B MP, LIPA, YVETTE, LIVER #### [facility] [address] [place] [address] Dr. Idania Roldan Crystals LM Nom (Urine sed) NONE SEEN Normal NONE SEEN [facility] Comment on above: Performed By: #### B MP, LIPA, YVETTE, LIVER #### [facility] [address] [address] [address] Idania Roldan Epithelial cells LM Ql (Urine sed) FEW Abnormal NONE SEEN /RARE [facility] Comment on above: Performed By: #### B MP, LIPA, YVETTE, LIVER #### [facility] [address] [address] [address] Idania Roldan Glucose Ql (U) Negative Normal NEGATIVE [facility] Comment on above: Performed By: #### B MP, LIPA, YVETTE, LIVER #### [facility] [address] [place] [address] Dr. Idania Roldan Hemoglobin Ql (U) LARGE Abnormal NEGATIVE [facility] Comment on above: Performed By: #### B MP, LIPA, YVETTE, LIVER #### [facility] [address] [place] [address] Dr. Idania Roldan Ketones Ql (U) TRACE Abnormal NEGATIVE [facility] Comment on above: Performed By: #### B MP, LIPA, YVETTE, LIVER #### [facility] [address] [place] [address] Dr. Idania Roldan LEUKOCYTES Negative Normal NEGATIVE [facility] Comment on above: Performed By: #### B MP, LIPA, YVETTE, LIVER #### [facility] [address] [place] [address] Dr. Idaina Roldan MUCOUS MODERATE Abnormal NONE SEEN [facility] Comment on above: Performed By: #### B MP, LIPA, YVETTE, LIVER #### [facility] [address] [place] [address] Dr. Idania Roldan Nitrite Ql (U) Negative Normal NEGATIVE [facility] Comment on above: Performed By: #### B MP, LIPA, YVETTE, LIVER #### [facility] [address] [place] [address] Dr. Idania Roldan pH (U) 5.0 [pH] Normal 5-9 [facility] Comment on above: Performed By: #### B MP, LIPA, YVETTE, LIVER #### [facility] [address] [address] [address] Idania Roldan RBC (U) [#/Vol] /uL Abnormal 0-2 [facility] Comment on above: Performed By: #### B MP, LIPA, YVETTE, LIVER #### [facility] [address] [address] [address] Idania Roldan SPEC GRAVITY >=1.030 Abnormal 1.005-<=1.02 5 [facility] Comment on above: Performed By: #### B MP, LIPA, YVETTE, LIVER #### [facility] [address] [address] [address] Idania Roldan UA PROTEIN TRACE Normal NEGATIVE/ TRACE [facility] Comment on above: Performed By: #### B MP, LIPA, YVETTE, LIVER #### [facility] [address] [address] [address] Idania Roldan Urobilinogen Qn (U) 0.2 {Bryan'U}/dL Normal 0.2 - 1. 0 [facility] Comment on above: Performed By: #### B MP, LIPA, YVETTE, LIVER #### [facility] [address] [address] [address] Idania Roldan WBC 0-2 Abnormal NONE SEEN [facility] Comment on above: Performed By: #### B MP, LIPA, YVETTE, LIVER #### [facility] [address] [address] [address] Idania Roldan Follow-Upon 01-08-2023 Follow-Up [id number] Madyson Moore 1980 F Date Provider Department Center 01/08/2023 Abby-RUKHSANA MILLER MP [facility] Family History Problem Relation Age of Onset Brain cancer Mother Breast cancer Sister Kidney cancer Maternal Grandmother Prostate cancer Paternal Grandfather Cancer Father Cancer Sister Family Status - Relation Status Age at Mother Sister Maternal Grandmother Paternal Grandfather Father Sister Level of Service:86289 LA OFFICE/OUTPATIENT ESTABLISHED LOW MDM 20-29 MIN Reason for Visit and Comments: Follow-up [082421] - Discuss SCS next steps Normal [facility] RAD - MISCon 01-05-2023 [facility] [id number] Normal [facility] Patient Educationon 01-05-20 Patient Education Urology Dietary [...] Rhubarb. ? Beets. ? Potato chips and czech fries. ? Nuts. ? If you regularly take a diuretic medicine, make sure to eat at least 1?2 fruits or vegetables high in potassium each day. These include: ? Avocado. ? Banana. ? [place], prune, carrot, or tomato juice. ? Baked [...] Salad dr (more content not included)... Normal [facility] Orders Onlyon 01-01-2023 Orders Only [id number] Madyson Moore 1980 F Date Provider Department Center 01/01/2023 RUKHSANA ESPINOZA MP PA[facility] Family History Problem Relation Age of Onset Brain cancer Mother Breast cancer Sister Kidney cancer Maternal Grandmother Prostate cancer Paternal Grandfather Cancer Father Cancer Sister Family Status - Relation Status Age at Mother Sister Maternal Grandmother Paternal Grandfather Father Sister [facility] Follow-Upon 12-24-2022 Follow-Up [id number] Madyson Moore 1980 F Date Provider Department Center 12/24/2022 ARJUN ROSE MP PAIN Medical [facility] Family History Problem Relation Age of Onset Brain cancer Mother Breast cancer Sister Kidney cancer Maternal Grandmother Prostate cancer Paternal Grandfather Cancer Father Cancer Sister Family Status - Relation Status Age at Mother Sister Maternal Grandmother Paternal Grandfather Father Sister Level of Service:24808 LA OFFICE/OUTPATIENT ESTABLISHED MOD MDM 30-39 MIN () Reason for Visit and Comments: Follow-up [300670] - S/P sympathetic nerve block it helped a couple of days brought pain level down a little before procedure pain was 7 after procedure pain was 5 or 6. The injection did help the pain for a couple days. Normal [facility] 36on 12-15-2022 36 ----- Message from Denisse Hayden MA sent at 12/15/2022 1:01 PM EST ----- Regarding: FW: Concerns ----- Message ----- From: Elvi Moore Sent: 12/15/2022 7:44 AM EST To: [facility] Pain Medicine Clinical Support Pool Subject: Concerns [...] my knee honestly I???m just miserable Normal [facility] Orders Onlyon 12-14-2022 Orders Only [id number] Madyson Moore ma 1980 F Date Provider Department Center 12/14/2022 170-RUKHSANA MILLER MP PAIN Medical [facility]avi Family History Problem Relation Age of Onset Brain cancer Mother Breast cancer Sister Kidney cancer Maternal Grandmother Prostate cancer Paternal Grandfather Cancer Father Cancer Sister Family Status - Relation Status Age at Mother Sister Maternal Grandmother Paternal Grandfather Father Sister Normal [facility] HPon 12-10-2022 H&P reviewed. The aditi marion was examined and there are no changes to the H&P. Normal [facility] HP This patient is a [...] which was unremarkable. 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 Past History of Treatments: Patient has tried other professional care of: OPPT (last performed in 07/2022) Trialed medications: Ibuprofen Current Medications for Associated Pain: [place] 5/325, Amitriptyline 50 qhs Current Medications Procedures [...] the patient does (more content not included)... [facility] 12-01-2022 36 Sent to vasyl valle, Lorena [facility] 11-30-2022 36 Patient called the o ffice and stating that her medication [facility]. When looking in the patients chart it did show that it was sent to the wrong pharmacy. I took that pharmacy out of the patients chart but she needs her medication refill sent to the right pharmacy. Please advise. Thank you. [facility] Telephoneon 11-30-2022 Telephone [id number] Madyson Moore anil 1980 Date Provider Department Center 11/30/2022 DENISSE PANIAGUA MP PAIN Medical [facility]avi Family History Problem Relation Age of Onset Brain cancer Mother Breast cancer Sister Kidney cancer Maternal Grandmother Prostate cancer Paternal Grandfather Cancer Father Cancer Sister Family Status - Relation Status Age at Mother Sister Maternal Grandmother Paternal Grandfather Father Sister [facility] Office Visiton 11-24-2022 Follow-up visit [id number] Mod[place] Moorenicole ma 1980 Provider Department Center 11/24/2022 ARJUN ROSE MP PAIN Medical [facility] Family History Problem Relation Age of Onset Brain cancer Mother Breast cancer Sister Kidney cancer Maternal Grandmother Prostate cancer Paternal Grandfather Cancer Father Cancer Sister Family Status - Relation Status Age at Mother Sister Maternal Grandmother Paternal Grandfather Father Sister Level of Service:21786 LA OFFICE/OUTPATIENT NEW MODERATE MDM 45-59 MINUTES (GC) Reason for Visit and Comments: Follow-up [740309] New Patient [632] - Knee pain, left s/p replacement May 2022 and November 01, [facility] 36on 11-23-2022 36 Keiry called patient and let her know that she has a pain management appointment for tomorrow at 8:15 am and if the pain is to bad she can go to the ER. [facility] Telephoneon 11-23-2022 Telephone [id number] TeresaMadyson ma 1980 Date Provider Department Center [...] tomorrow 11/24 at 810. Patient updated. Normal [facility] Follow-Upon 11-20-2022 Follow-Up [id number] Madyson Moore 1980 F Date Provider Department Center 11/20/2022 JORDEN DEWITT MP Family History Problem Relation Age of Onset Brain cancer Mother Breast cancer Sister Kidney cancer Maternal Grandmother Prostate cancer Paternal Grandfather Cancer Father Cancer Sister Family Status - Relation Status Age at Mother Sister Maternal Grandmother Paternal Grandfather Father Sister Level of Service:68934 LA OFFICE/OUTPATIENT ESTABLISHED LOW MDM 20-29 MIN Reason for Visit and Comments: Follow-up [416641] Pain [136] [facility] Telephoneon 11-13-2022 Telephone [id number] Madyson Moore 1980 Date Provider Department Center 11/13/2022 JORDEN DEWITT MP Family History Problem Relation Age of Onset Brain cancer Mother Breast cancer Sister Kidney cancer Maternal Grandmother Prostate cancer Paternal Grandfather Cancer Father Cancer Sister Family Status - Relation Status Age at Mother Sister Maternal Grandmother Paternal Grandfather Father Sister [facility] 36on 11-10-2022 36 Attempted to call patient. Left VM. Will attempt call again tomorrow. [facility] Orders Onlyon 11-10-2022 Orders Only [id number] Madyson Moore 1980 Date Provider Department Center 11/10/2022 YASMANY AVALOS MPRTTARIK Family History Problem Relation Age of Onset Brain cancer Mother Breast cancer Sister Kidney cancer Maternal Grandmother Prostate cancer Paternal Grandfather Cancer Father Cancer Sister Family Status - Relation Status Age at Mother Sister Maternal Grandmother Paternal Grandfather Father Sister Normal [facility] Telephoneon 11-10-2022 Telephone [id number] Madyson Moore 1980 F Date Provider Department Center 11/10/[address] [facility] Family History Problem Relation Age of Onset [...] steps were. I spoke to Jorden Brody, CLINICAL LAW PROFESSOR he stated her results were negative and that he spoke to Dr Lane and the next step is to put in a referal for pain management and physical therapy. [facility] Orders Onlyon 11-05-2022 Orders Only [id number] Madyson Moore 1980 F Date Provider Department Center 11/05/2022 Tu-JORDEN BRODY MP [facility] Family History Problem Relation Age of Onset Brain cancer Mother Breast cancer Sister Kidney cancer Maternal Grandmother Prostate cancer Paternal Grandfather Cancer Father Cancer Sister Family Status - Relation Status Age at Mother Sister Maternal Grandmother Paternal Grandfather Father Sister Normal [facility] BODY FLUID CELL DIFFERENTIAL on 11-03-2022 BASOPHILS TOTAL PER COUNTED LEUKOCYTES IN BODY FLUID BY MANUAL COUNT [facility] Comment on above: Order Comment: Pleas e pull from previous right knee aspiration sample that was received on 11/03/22 Differential performed on cytospin Performed By: #### L [id number] #### [facility] ([facility]) [address] [place] [address] CELLS COUNTED TOTAL (#) IN BODY FLUID 100 Normal [facility] Comment on above: Order Comment: Pleas e pull from previous right knee aspiration sample that was received on 11/03/22 Differential performed on cytospin Performed By: #### L [id number] #### [facility] ([facility]) [address] [place] [address] EOSINOPHILS TOTAL PER COUNTED LEUKOCYTES IN BODY FLUID BY MANUAL COUNT 2 Normal [facility] Comment on above: Order Comment: Pleas e pull from previous right knee aspiration sample that was received on 11/03/22 Differential performed on cytospin Performed By: #### L [id number] #### [facility] ([facility]) [address] [place] [address] LYMPHOCYTES TOTAL PER COUNTED LEUKOCYTES IN BODY FLUID BY MANUAL COUNT 36 [facility] Comment on above: Order Comment: Pleas e pull from previous right knee aspiration sample that was received on 11/03/22 Differential performed on cytospin Performed By: #### L [id number] #### [facility] ([facility]) [address] [place] [address] MESOTHELIAL CELLS TOTAL PER COUNTED LEUKOCYTES IN BODY FLUID BY MANUAL COUN [facility] Comment on above: Order Comment: Pleas e pull from previous right knee aspiration sample that was received on 11/03/22 Differential performed on cytospin Performed By: #### L [id number] #### [facility] ([facility]) [address] [place] [address] MONOCYTES+MACROPHAG ES TOTAL PER COUNTED LEUKOCYTES IN BODY FLUID BY MANUAL 7 [facility] Comment on above: Order Comment: Pleas e pull from previous right knee aspiration sample that was received on 11/03/22 Differential performed on cytospin Performed By: #### L [id number] #### [facility] ([facility]) [address] [place] [address] NEUTROPHILS TOTAL PER COUNTED LEUKOCYTES IN BODY FLUID BY MANUAL COUNT 55 [facility] Comment on above: Order Comment: Pleas e pull from previous right knee aspiration sample that was received on 11/03/22 Differential performed on cytospin Performed By: #### L [id number] #### [facility] ([facility]) [address] [place] [address] OTHER CELLS BODY FLUID (MANUAL) [facility] Comment on above: Order Comment: Pleas e pull from previous right knee aspiration sample that was received on 11/03/22 Differential performed on cytospin Performed By: #### L [id number] #### [facility] ([facility]) [address] [place] [address] BODY FLUID CULTUREon 023 Bacteria identified Cx Nom (Unsp spec) No growth at 5 days Normal [facility] Comment on above: Performed By: #### L [id number] #### [facility] ([facility] [address] [place] [address] GRAM STAIN RESULT Abnormal [facility] Comment on above: Result Comment: Many Polymorphonuclear leukocytes No organisms seen Performed By: #### L [id number] #### [facility] ([facility] [address] [place] [address] Follow-Upon 11-03-2022 Follow-Up [id number] Madyson Moore 1980 F Date Provider Department Center 11/03/2022 KEVIN ANGELES MP ORTHO MPORTHO Family History Problem Relation Age of Onset Brain cancer Mother Breast cancer Sister Kidney cancer Maternal Grandmother Prostate cancer Paternal Grandfather Cancer Father Cancer Sister Family Status - Relation Status Age at Mother Sister Maternal Grandmother Paternal Grandfather Father Sister Level of Service:11350 LA OFFICE/OUTPATIENT ESTABLISHED LOW MDM 20-29 MIN (25) Reason for Visit and Comments: Pain [136] Normal [facility] GLUCOSE, BODY FLUIDon 2022 GLUCOSE (MG/DL) IN BODY FLUID 59 mg/dL Normal [facility] Comment on above: Result Comment: The reference range and other method performance specifications have not been established for this test in fluids. the test result should be integrated into the clinical context for interpretation. Performed By: #### L [id number] #### [facility] ([facility]) [address] [place] [address] TYPE OF BODY FLUID Synovial Fluid Normal [facility] Comment on above: Performed By: #### L [id number] #### [facility] ([facility]) [address] [place] [address] PATHOLOGY REVIEWon PATHOLOGY REVIEW Electronically betty garcia by Juanita Porter MD on 11/09/22 at 12:05 PM. Normal [facility] Comment on above: Order Comment: Pleas e pull from previous right knee aspiration sample that was received on 11/03/22 Performed By: #### L [id number] ####[facility] ([facility])[address] [place] [address] 36on 10-30-2022 36 I would recommmedn i f pain is really bad to go to ER to discuss reaspirating the knee as we got no results from last one. If not I would like to bring her in on Wednesday or Wednesday with gehling to aspirate ourselves. Normal [facility] Reminderson 10-29-2022 Reminders - From: [...] [facility] 36on 10-21-2022 36 See note above Normal [facility] BASIC METABOLIC PANELon 10-11 Anion gap [Moles/Vol] 8 mmol/L Normal 7-20 [facility] Comment on above: Performed By: #### L [id number] #### [facility] ([facility]) [address] [place] [address] Calcium [Mass/Vol] 8.7 mg/dL Normal 8.6-10.3 [facility] Comment on above: Performed By: #### L [id number] #### [facility] ([facility]) [address] [place] [address] Chloride [Moles/Vol] 105 mmol/L Normal 98-107 [facility] Comment on above: Performed By: #### L [id number] #### [facility] ([facility]) [address] [place] [address] CO2 [Moles/Vol] 26 mmol/L Normal 21-31 [facility] Comment on above: Performed By: #### L [id number] #### [facility] ([facility]) [address] [place] [address] Creatinine [Mass/Vol] 0.63 mg/dL Normal 0.60-1.20 [facility] Comment on above: Performed By: #### L [id number] #### [facility] ([facility]) [address] [place] [address] GLOMERULAR FILTRATION RATE ML/MIN/1.73 SQ M.PREDICTED 112.6 mL/min/1.73m*2 Normal >60.0 [facility] Comment on above: Result Comment: The [facility]???s estimated glomerular filtration rate (eGFR) [...] individuals. Performed By: #### L [id number] #### [facility] ([facility]) [address] [place] [address] Glucose [Mass/Vol] 86 mg/dL Normal 70-100 [facility] Comment on above: Performed By: #### L [id number] #### [facility] ([facility]) [address] [place] [address] Potassium [Moles/Vol] 4.3 mmol/L Normal 3.5-5.1 [facility] Comment on above: Performed By: #### L [id number] #### [facility] ([facility]) [address] [place] [address] Sodium [Moles/Vol] 139 mmol/L Normal 136-145 [facility] Comment on above: Performed By: #### L [id number] #### [facility] ([facility]) [address] [place] [address] Urea nitrogen [Mass/Vol] 15 mg/dL Normal 7-25 [facility] Comment on above: Performed By: #### L [id number] #### [facility] ([facility]) [address] [place] [address] UREA NITROGEN/CREATININE (MASS RATIO) IN SER/PLAS 23.81 Normal [facility] Comment on above: Performed By: #### L [id number] #### [facility] ([facility]) [address] [place] [address] C-REACTIVE PROTEINon 023 C REACTIVE PROTEIN (MG/L) IN SER/PLAS 1.6 mg/L Normal 0.0-7.0 [facility] Comment on above: Performed By: #### L [id number] #### [facility] ([facility]) [address] [place] [address] CBC WITH AUTO DIFFERENTIALon 10-21-2022 Basophils (Bld) [#/Vol] 0.02 10*3/uL Normal 0.00-0.20 [facility] Comment on above: Performed By: #### L [id number] #### [facility] ([facility]) [address] [place] [address] Basophils/100 WBC (Bld) 0.3 % Normal 0.0-1.0 [facility] Comment on above: Performed By: #### L [id number] #### [facility] ([facility]) [address] [place] [address] Eosinophils (Bld) [#/Vol] 0.02 10*3/uL Normal 0.00-0.50 [facility] Comment on above: Performed By: #### L [id number] #### [facility] ([facility]) [address] [place] [address] Eosinophils/100 WBC (Bld) 0.3 % Normal 0.0-6.0 [facility] Comment on above: Performed By: #### L [id number] #### [facility] ([facility]) [address] [place] [address] Erythrocyte distribution width (RBC) [Ratio] 17.2 % High 11.5-15.0 [facility] Comment on above: Performed By: #### L [id number] #### [facility] ([facility]) [address] [place] [address] ERYTHROCYTE MEAN CORPUSCULAR HEMOGLOBIN CONCENTRATION (G/DL) BY AUTOMATED 29.3 g/dL Low 32.0-35.0 [facility] Comment on above: Performed By: #### L [id number] #### [facility] ([facility]) [address] [place] [address] Hematocrit (Bld) [Volume fraction] 29.7 % Low 36.0-48.0 [facility] Comment on above: Performed By: #### L [id number] #### [facility] ([facility]) [address] [place] [address] Hemoglobin (Bld) [Mass/Vol] 8.7 g/dL Low 12.0-15.0 [facility] Comment on above: Performed By: #### L [id number] #### [facility] ([facility]) [address] [place] [address] Immature granulocytes (Bld) [#/Vol] 0.02 10*3/uL Normal 0.00-0.20 [facility] Comment on above: Performed By: #### L [id number] #### [facility] ([facility]) [address] [place] [address] Immature granulocytes/100 WBC (Bld) 0.3 % Normal 0.0-1.0 [facility] Comment on above: Performed By: #### L [id number] #### [facility] ([facility]) [address] [place] [address] Lymphocytes (Bld) [#/Vol] 2.29 10*3/uL Normal 1.20-4.00 [facility] Comment on above: Performed By: #### L [id number] #### [facility] (BEAKER) [address] [place] [address] Lymphocytes/100 WBC (Bld) 31.8 % Normal 20.0-45.0 [facility] Comment on above: Performed By: #### L [id number] #### [facility] ([facility]ER) [address] [place] [address] MCH (RBC) [Entitic mass] 22.3 pg Low 27.0-33.0 [facility] Comment on above: Performed By: #### L [id number] #### [facility] ([facility]) [address] [place] [address] MCV (RBC) [Entitic vol] 76.2 fL Low 82.0-98.0 [facility] Comment on above: Performed By: #### L [id number] #### [facility] ([facility]) [address] [place] [address] Monocytes (Bld) [#/Vol] 0.53 10*3/uL Normal 0.10-1.00 [facility] Comment on above: Performed By: #### L [id number] #### [facility] ([facility]) [address] [place] [address] Monocytes/100 WBC (Bld) 7.4 % Normal 5.0-12.0 [facility] Comment on above: Performed By: #### L [id number] #### [facility] ([facility]) [address] [place] [address] Neutrophils (Bld) [#/Vol] 4.31 10*3/uL Normal 1.60-7.60 [facility] Comment on above: Performed By: #### L [id number] #### [facility] ([facility]) [address] [place] [address] Neutrophils/100 WBC (Bld) 59.9 % Normal 40.0-72.0 [facility] Comment on above: Performed By: #### L [id number] #### [facility] ([facility]) [address] [place] [address] NRBC (PER 100 WBCS) BY AUTOMATED COUNT 0.0 % Normal 0.0-0.0 [facility] Comment on above: Performed By: #### L [id number] #### [facility] ([facility]) [address] [place] [address] PLATELETS (10*3/UL) IN BLOOD AUTOMATED COUNT 243 10*3/uL Normal 150-400 [facility] Comment on above: Performed By: #### L [id number] #### [facility] ([facility]) [address] [place] [address] RBC (Bld) [#/Vol] 3.90 10*6/uL Normal 3.80-5.00 [facility] Comment on above: Performed By: #### L [id number] #### [facility] ([facility]) [address] [place] [address] WBC (Bld) [#/Vol] 7.19 10*3/uL Normal 4.00-10.60 [facility] Comment on above: Performed By: #### L [id number] #### [facility] ([facility]) [address] [place] [address] CONSULTon 10-21-2022 CONSULT ----- ----- Attestation signed by Nain Setele MD at 10/22/2022 9:53 AM Patient discussed [...] Activity Al (more content not included)... Normal [facility] EDPROVon 10-21-2022 EDPROV [facility] [address] [facility] [address] EMERGENCY DEPARTMENT ENCOUNTER CHIEF COMPLAINT Chief Complaint [...] with lab regarding delay in aspiration results, clinical laboratory manager reports no sample was received in lab. Spoke with ortho resident who reports they were unable to aspirate any fluid from the knee (dry tap) and that the pt is ok for dc home to fu with Dr Lane outpt. Ortho reports they reviewed all results. No other recommendations per orthopedics. [JS] 2041 Pt was evaluated by film writer. Pt tearful. Pt reports she has had [...] Procedure Abnormality Status --------- ------ Body fluid culture[[id number]] Anaerobic culture[[id number]] Please view results for these tests on the individual orders. FUNGAL CULTURE BODY FLUID CULTURE ANAEROBIC CULTURE CBC AND DIFFERENTIAL Narrative: The following orders were created for panel order CBC and differential. Procedure Abnormality Status --------- ------ CBC auto differential[[id number]] Abnormal Final result Please view results for [...] Status --------- ------ Body fluid cell count wit...[[id number]] Please view results for these tests on the individual orders. GLUCOSE, BODY FLUID SYNOVIAL FLUID, CRYSTAL BODY FLUID CELL COUNT WITH DIFFERENTIAL CONSULTS: Orthopedics PROCEDURES: attempted left knee aspiration by orthopedics FINAL IMPRESSION 1. Left knee pain, unspecified chronicity PATIENT REFERRED TO: [facility] Orthopedics [phone] Schedule an appointment as soon as possible for a visit DISCHARGE MEDICATIONS: Discharge Medication List as of 10/21/2022 9:02 PM I have reviewed the disposition diagnosis with the patient and/or their family/guardian. I have answered their questions and given discharge instructions. They voiced understanding of these instructions and d (more content not included)... Normal [facility] EDPROV [facility] [address] [facility] [address] EMERGENCY DEPARTMENT ENCOUNTER ED Room: CHIEF COMPLAINT [...] [prochlorperazine], and (more content not included)... Normal [facility] SEDIMENTATION RATEon 023 SEDIMENTATION RATE, ERYTHROCYTE 34 mm/hr High <=20 [facility] Comment on above: Performed By: #### L [id number] #### [facility] ([facility]) [address] [place] [address] C-REACTIVE PROTEINon 023 C REACTIVE PROTEIN (MG/L) IN SER/PLAS 2.0 mg/L Normal 0.0-7.0 [facility] Comment on above: Performed By: #### L [id number] #### [facility] ([facility]) [address] [place] [address] Office Visiton 10-20-2022 Follow-up visit [id number] Madyson Moore ma 1980 F Date Provider Department Center 10/20/2022 JORDEN DEWITT MP ORTHO MPORTHO Family History Problem Relation Age of Onset Brain cancer Mother Breast cancer Sister Kidney cancer Maternal Grandmother Prostate cancer Paternal Grandfather Cancer Father Cancer Sister Family Status - Relation Status Age at Mother Sister Maternal Grandmother Paternal Grandfather Father Sister Level of Service:05758 LA OFFICE/OUTPATIENT ESTABLISHED LOW MDM 20-29 MIN Reason for Visit and Comments: Follow-up [[id number]] Normal [facility] SEDIMENTATION RATEon 023 SEDIMENTATION RATE, ERYTHROCYTE 25 mm/hr High <=20 [facility] Comment on above: Performed By: #### L [id number] #### [facility] ([employer]) [address] [place] [address] 36on 10-15-2022 36 Lets get appointment scheduled Normal [facility] C-REACTIVE PROTEINon 023 C REACTIVE PROTEIN (MG/L) IN SER/PLAS 1.4 mg/L Normal 0.0-7.0 [facility] Comment on above: Performed By: #### L [id number] #### [facility] ([facility]) [address] [place] [address] CONSULTon 10-13-2022 CONSULT ----- ----- Attestation signed [...] Cancer Father Tye Shearn Cancer Sister January [facility] Social History She reports that she quit [...] 10/13/2022 No acute pathology Electronically signed: Yvette eDsai. No CT results found for the past [...] as well. She does specifically ask for [place] for pain and states she does not tolerate any NSAIDS. I am hesitant to prescribe, or advise ED providers to prescribe, any narcotics for pain control as review of OARRS demonstrates that patient gets narcotic pain medications quite frequently from different providers and prior orthopedic clinic notes specifi (more content not included)... Normal [facility] EDPROVon 10-13-2022 EDPROV HPI Chief [...] chills, body aches. History provided by: Patient [place] Coma Scale Score: 15 Patient History Past [...] Cancer Father Tye Main ??? Cancer Sister La Nena Nichole Social [...] MDM ED Course as of 10/13/22 1156 [facility] Oct 13, 2022 1044 Discussed case with [...] Attestion Dusty Womack NP 10/13/22 0938 Normal [facility] SEDIMENTATION RATEon 023 SEDIMENTATION RATE, ERYTHROCYTE 9 mm/hr Normal <=20 [facility] Comment on above: Performed By: #### L [id number] #### [facility] ([facility]) [address] [place] [address] Covid-19 PCR ([facility])on 09-11 SARS-CoV-2 (COVID-19) RNA MAMIE+probe Ql (Unsp spec) Detected Critically abnormal NOT DETECTED [facility] Comment on above: Result Comment: This test is not yet approved or cleared by the [place] FDA. When there are no FDA-approved or cleared tests available, and other criteria are met, FDA can make tests available under an emergency access mechanism called an Emergency Use Authorization (EUA). The EUA for this test is supported by the [employer] of Health and Human Service's (HHS's) declaration [...] used). Performed By: #### C VDTBH #### [facility] [address] [place] [address] Dr. Idania Roldan INFLUENZA A AND B AGon 10-[facility] Normal [facility] Comment on above: Result Comment: Nega tive for Flu A protein angiten. Infection due to Flu A cannot be ruled out. Flu A angiten in the sample may be below the detection limit of the test. Performed By: #### P T, PTT #### [facility] [address] [place] [address] Dr. Idania Roldan INFLUBNEG SEE BELOW Normal [facility] Comment on above: Result Comment: Nega tive for Flu B protein antigen. Infection due to Flu B cannot be ruled out. Flu B antigen in the sample may be below the detection limit of the test. Performed By: #### P T, PTT #### [facility] [address] [place] [address] Dr. Idania Roldan INFLUENZA A AG Negative Normal NEGATIVE SEE COMMENT [facility] Comment on above: Performed By: #### P T, PTT #### [facility] [address] [place] [address] Dr. Idania Roldan INFLUENZA B AG Negative Normal NEGATIVE SEE COMMENT [facility] Comment on above: Performed By: #### P T, PTT #### [facility] [address] [place] [address] Dr. Idania Roldan INTERNAL CONTROLS Within Normal Limits Normal Wi thin Normal Limits [facility] Comment on above: Performed By: #### P T, PTT #### [facility] [address] [place] [address] Dr. Idania Roldan AMYLASEon 09-30-2022 Amylase [Catalytic activity/Vol] 62 U/L Normal 25-115 [facility] Comment on above: Performed By: #### B MP, LIPA, YVETTE, LIVER #### [facility] [address] [place] [address] Dr. Idania Roldan CBC AUTO DIFFon 09-30-2022 BASO # 0.0 103/ul Normal 0.0-0.1 [facility] Comment on above: Performed By: #### C BC #### [facility] [address] [place] [address] Dr. Idania Roldan Basophils/100 WBC (Bld) 0.3 % Normal 0.2-2.0 [facility] Comment on above: Performed By: #### C BC #### [facility] [address] [place] [address] Dr. Idania Roldan EO # 0.1 103/ul Normal 0.0-0.7 [facility] Comment on above: Performed By: #### C BC #### [facility] [address] [place] [address] Dr. Idania Roldan Eosinophils/100 WBC (Bld) 1.2 % Normal 0.9-7.0 [facility] Comment on above: Performed By: #### C BC #### [facility] [address] [place] [address] Dr. Idania Roldan Erythrocyte distribution width (RBC) [Ratio] 14.8 % Normal 11.0-15.0 [facility] Comment on above: Performed By: #### C BC #### [facility] [address] [place] [address] Dr. Idania Roldan Hematocrit (Bld) [Volume fraction] 31.8 % Critically low 36.0-48.0 [facility] Comment on above: Performed By: #### C BC #### [facility] [address] [place] [address] Dr. Idania Roldan Hemoglobin (Bld) [Mass/Vol] 9.6 g/dL Critically low 12.0-16.0 [facility] Comment on above: Performed By: #### C BC #### [facility] [address] [place] [address] Dr. Idania Roldan IG # 0.01 10e3/ul Normal 0.00-0.03 [facility] Comment on above: Performed By: #### C BC #### [facility] [address] [place] [address] Dr. Idania Roldan IG % 0.1 % Normal 0.0-0.5 [facility] Comment on above: Performed By: #### C BC #### [facility] [address] [place] [address] Dr. Idania Roldan LYMPH # 3.3 103/ul Normal 1.2-3.8 [facility] Comment on above: Performed By: #### C BC #### [facility] [address] [place] [address] Dr. Idania Roldan Lymphocytes/100 WBC (Bld) 45.4 % Normal 20.5-60.0 [facility] Comment on above: Performed By: #### C BC #### [facility] [address] [place] [address] Dr. Idania Roldan MANUAL DIFF REQ NO Normal [facility] Comment on above: Performed By: #### C BC #### [facility] [address] [place] [address] Dr. Idania Roldan MCH (RBC) [Entitic mass] 22.7 pg Critically low 26.7-34.0 [facility] Comment on above: Performed By: #### C BC #### [facility] [address] [address] [address] Idania Roldan MCHC (RBC) [Mass/Vol] 30.2 g/dL Normal 29.9-35.2 [facility] Comment on above: Performed By: #### C BC #### [facility] [address] [place] [address] Dr. Idania Roldan MCV (RBC) [Entitic vol] 75.4 fL Critically low 81.0-99.0 [facility] Comment on above: Performed By: #### C BC #### [facility] [address] [place] [address] Dr. Idania Roldan MONO # 0.5 103/ul Normal 0.3-0.8 [facility] Comment on above: Performed By: #### C BC #### [facility] [address] [place] [address] Dr. Idania Roldan Monocytes/100 WBC (Bld) 6.2 % Normal 1.7-12.0 [facility] Comment on above: Performed By: #### C BC #### [facility] [address] [place] [address] Dr. Idania Roldan NEUT # 3.4 103/ul Normal 1.4-6.5 [facility] Comment on above: Performed By: #### C BC #### [facility] [address] [place] [address] Dr. Idania Roldan Neutrophils/100 WBC (Bld) 46.8 % Normal 43.0-75.0 [facility] Comment on above: Performed By: #### C BC #### [facility] [address] [place] [address] Dr. Idania Roldan Platelet mean volume (Bld) [Entitic vol] 8.5 fL Critically low 9.5-13.5 [facility] Comment on above: Performed By: #### C BC #### [facility] [address] [place] [address] Dr. Idania Roldan PLT 273 103/ul Normal 150-450 [facility] Comment on above: Performed By: #### C BC #### [facility] [address] [place] [address] Dr. Idania Roldan RBC 4.22 106/ul Normal 4.20-5.40 [facility] Comment on above: Performed By: #### C BC #### [facility] [address] [place] [address] Dr. Idania Roldan WBC 7.2 103/ul Normal 4.0-11.0 [facility] Comment on above: Performed By: #### C BC #### [facility] [address] [place] [address] Dr. Idania Roldan CULTURE URINEon 09-30-2022 CULTURE URINE Culture Observations : MODERATE GROWTH OF MIXED GENITAL ALE. NO POTENTIAL PATHOGENS SEEN. Normal [facility] Comment on above: Performed By: #### P T, PTT #### [facility] [address] [place] [address] Dr. Idania Roldan LIPASEon 09-30-2022 Lipase [Catalytic activity/Vol] 256.0 U/L Normal 73.0-393.0 [facility] Comment on above: Performed By: #### B MP, LIPA, YVETTE, LIVER #### [facility] [address] [place] [address] Dr. Idania Roldan PROF 14(COMP METB)on 022 Albumin [Mass/Vol] 4.1 g/dL Normal 3.4-5.0 [facility] Comment on above: Performed By: #### B MP, LIPA, YVETTE, LIVER #### [facility] [address] [place] [address] Dr. Idania Roldan Albumin/Globulin [Mass ratio] 1.0 {ratio} Normal [facility] Comment on above: Performed By: #### B MP, LIPA, YVETTE, LIVER #### [facility] [address] [place] [address] Dr. Idania Roldan ALP [Catalytic activity/Vol] 93 U/L Normal 46-116 [facility] Comment on above: Performed By: #### B MP, LIPA, YVETTE, LIVER #### [facility] [address] [place] [address] Dr. Idania Roldan ALT [Catalytic activity/Vol] 13 U/L Critically low 14-59 [facility] Comment on above: Performed By: #### B MP, LIPA, YVETTE, LIVER #### [facility] [address] [address] [address] Idania Roldan Anion gap [Moles/Vol] 9.8 mmol/L Normal [facility] Comment on above: Performed By: #### B MP, LIPA, YVETTE, LIVER #### [facility] [address] [address] [address] Idania Roldan AST [Catalytic activity/Vol] 12 U/L Critically low 15-37 [facility] Comment on above: Performed By: #### B MP, LIPA, YVETTE, LIVER #### [facility] [address] [address] [address] Idania Roldan Bilirubin [Mass/Vol] 0.2 mg/dL Normal 0.2-1.0 [facility] Comment on above: Performed By: #### B MP, LIPA, YVETTE, LIVER #### [facility] [address] [address] [address] Idania Roldan Calcium [Mass/Vol] 9.2 mg/dL Normal 8.5-10.1 [facility] Comment on above: Performed By: #### B MP, LIPA, YVETTE, LIVER #### [facility] [address] [address] [address] Idania Roldan Chloride [Moles/Vol] 101 mmol/L Normal 98-107 [facility] Comment on above: Performed By: #### B MP, LIPA, YVETTE, LIVER #### [facility] [address] [address] [address] Idania Roldan CO2 [Moles/Vol] 31.8 mmol/L Normal 21.0-32.0 [facility] Comment on above: Performed By: #### B MP, LIPA, YVETTE, LIVER #### [facility] [address] [address] [address] Idania Roldan Creatinine [Mass/Vol] 0.71 mg/dL Normal 0.55-1.02 [facility] Comment on above: Performed By: #### B MP, LIPA, YVETTE, LIVER #### [facility] [address] [place] [address] Dr. Idania Roldan EGFR-AF WALLISIAN >60 Normal >=60 [facility] Comment on above: Performed By: #### B MP, LIPA, YVETTE, LIVER #### [facility] [address] [place] [address] Dr. Idania Roldan EGFR-NON AF [place]IAN >60 Normal >=60 [facility] Comment on above: Performed By: #### B MP, LIPA, YVETTE, LIVER #### [facility] [address] [place] [address] Dr. Idania Roldan Globulin (S) [Mass/Vol] 4.0 g/dL Normal [facility] Comment on above: Performed By: #### B MP, LIPA, YVETTE, LIVER #### [facility] [address] [place] [address] Dr. Idania Roldan Glucose [Mass/Vol] 92 mg/dL Normal 74-106 [facility] Comment on above: Performed By: #### B MP, LIPA, YVETTE, LIVER #### [facility] [address] [place] [address] Dr. Idania Roldan Potassium [Moles/Vol] 3.6 mmol/L Normal 3.5-5.1 [facility] Comment on above: Performed By: #### B MP, LIPA, YVETTE, LIVER #### [facility] [address] [place] [address] Dr. Idania Roldan Protein [Mass/Vol] 8.1 g/dL Normal 6.4-8.2 [facility] Comment on above: Performed By: #### B MP, LIPA, YVETTE, LIVER #### [facility] [address] [place] [address] Dr. Idania Roldan Sodium [Moles/Vol] 139 mmol/L Normal 136-145 [facility] Comment on above: Performed By: #### B MP, LIPA, YVETTE, LIVER #### [facility] [address] [place] [address] Dr. Idania Roldan Urea nitrogen [Mass/Vol] 15.0 mg/dL Normal 7.0-18.0 [facility] Comment on above: Performed By: #### B MP, LIPA, YVETTE, LIVER #### [facility] [address] [place] [address] Dr. Idania Roldan Urea nitrogen/Creatinine [Mass ratio] 21.1 mg/mg Normal [facility] Comment on above: Performed By: #### B MP, LIPA, YVETTE, LIVER #### [facility] [address] [place] [address] Dr. Idania Roldan UA RANDOM W/MICROSCOPICon BACTERIA SMALL Abnormal NONE SEEN [facility] Comment on above: Performed By: #### B MP, LIPA, YVETTE, LIVER #### [facility] [address] [place] [address] Dr. Idania Roldan Bilirubin Ql (U) Negative Normal NEGATIVE [facility] Comment on above: Performed By: #### B MP, LIPA, YVETTE, LIVER #### [facility] [address] [place] [address] Dr. Idania Roldan CAST NONE SEEN Normal NONE SEEN [facility] Comment on above: Performed By: #### B MP, LIPA, YVETTE, LIVER #### [facility] [address] [place] [address] Dr. Idania Roldan Clarity (U) CLEAR Normal CLEAR [facility] Comment on above: Performed By: #### B MP, LIPA, YVETTE, LIVER #### [facility] [address] [place] [address] Dr. Idania Roldan Color (U) YELLOW Normal YELLOW [facility] Comment on above: Performed By: #### B MP, LIPA, YVETTE, LIVER #### [facility] [address] [place] [address] Dr. Idania Roldan Crystals LM Nom (Urine sed) NONE SEEN Normal NONE SEEN [facility] Comment on above: Performed By: #### B MP, LIPA, YVETTE, LIVER #### [facility] [address] [place] [address] Dr. Idania Roldan Epithelial cells LM Ql (Urine sed) FEW Abnormal NONE SEEN /RARE [facility] Comment on above: Performed By: #### B MP, LIPA, YVETTE, LIVER #### [facility] [address] [address] [address] Idania Roldan Glucose Ql (U) Negative Normal NEGATIVE [facility] Comment on above: Performed By: #### B MP, LIPA, YVETTE, LIVER #### [facility] [address] [address] [address] Idania Roldan Hemoglobin Ql (U) Negative Normal NEGATIVE [facility] Comment on above: Performed By: #### B MP, LIPA, YVETTE, LIVER #### [facility] [address] [address] [address] Idania Roldan Ketones Ql (U) Negative Normal NEGATIVE [facility] Comment on above: Performed By: #### B MP, LIPA, YVETTE, LIVER #### [facility] [address] [address] [address] Idania Roldan LEUKOCYTES SMALL Abnormal NEGATIVE [facility] Comment on above: Performed By: #### B MP, LIPA, YVETTE, LIVER #### [facility] [address] [place] [address] Dr. Idania Roldan MUCOUS TRACE Abnormal NONE SEEN [facility] Comment on above: Performed By: #### B MP, LIPA, YVETTE, LIVER #### [facility] [address] [address] [address] Idania Roldan Nitrite Ql (U) Negative Normal NEGATIVE [facility] Comment on above: Performed By: #### B MP, LIPA, YVETTE, LIVER #### [facility] [address] [address] [address] Idania Roldan pH (U) 7.0 [pH] Normal 5-9 [facility] Comment on above: Performed By: #### B MP, LIPA, YVETTE, LIVER #### [facility] [address] [place] [address] Dr. Idania Roldan RBC NONE SEEN Abnormal 0-2 [facility] Comment on above: Performed By: #### B MP, LIPA, YVETTE, LIVER #### [facility] [address] [address] [address] Idania Roldan SPEC GRAVITY 1.015 Normal 1.005-<=1.02 5 [facility] Comment on above: Performed By: #### B MP, LIPA, YVETTE, LIVER #### [facility] [address] [place] [address] Dr. Idania Roldan UA PROTEIN Negative Normal NEGATIVE/ TRACE [facility] Comment on above: Performed By: #### B MP, LIPA, YVETTE, LIVER #### [facility] [address] [address] [address] Idania Roldan Urobilinogen Qn (U) 0.2 {Bryan'U}/dL Normal 0.2 - 1. 0 [facility] Comment on above: Performed By: #### B MP, LIPA, YVETTE, LIVER #### [facility] [address] [place] [address] Dr. Idania Roldan WBC 5-10 Abnormal NONE SEEN [facility] Comment on above: Performed By: #### B MP, LIPA, YVETTE, LIVER #### [facility] [address] [address] [address] Idania Roldan [facility]on [facility]-10 SARS-CoV-2 (COVID-19) RNA MAMIE+probe Ql (Unsp spec) Not detected Normal NOT DETECTED [facility] Comment on above: Result Comment: This test is not yet approved or cleared by the [place] FDA. When there are no FDA-approved or cleared tests available, and other criteria are met, FDA can make tests available under an emergency access mechanism called an Emergency Use Authorization (EUA). The EUA for this test is supported by the [employer] of Health and Human Service's (HHS's) declaration [...] SARS-CoV-2. Performed By: #### C VDTB #### [facility] [address] [place] [address] Dr. Idania Roldan INFLUENZA A AND B AGon 09-21 [facility] SEE BELOW Normal [facility] Comment on above: Result Comment: Nega tive for Flu A protein angiten. Infection due to Flu A cannot be ruled out. Flu A angiten in the sample may be below the detection limit of the test. Performed By: #### B MP, LIPA, YVETTE, LIVER #### [facility] [address] [place] [address] Dr. [facility] Normal [facility] Comment on above: Result Comment: Nega tive for Flu B protein antigen. Infection due to Flu B cannot be ruled out. Flu B antigen in the sample may be below the detection limit of the test. Performed By: #### B MP, LIPA, YVETTE, LIVER #### [facility] [address] [place] [address] Dr. Idania Roldan INFLUENZA A AG Negative Normal NEGATIVE SEE COMMENT [facility] Comment on above: Performed By: #### B MP, LIPA, YVETTE, LIVER #### [facility] [address] [place] [address] Dr. Idania Roldan INFLUENZA B AG Negative Normal NEGATIVE SEE COMMENT [facility] Comment on above: Performed By: #### B MP, LIPA, YVETTE, LIVER #### [facility] [address] [place] [address] Dr. Idania Roldan INTERNAL CONTROLS Within Normal Limits Normal Wi thin Normal Limits [facility] Comment on above: Performed By: #### B MP, LIPA, YVETTE, LIVER #### [facility] [address] [place] [address] Dr. Idania Roldan Covid-19 PCR ([facility])on 08-11 SARS-CoV-2 (COVID-19) RNA MAMIE+probe Ql (Unsp spec) Not detected Normal NOT DETECTED [facility] Comment on above: Result Comment: This test is not yet approved or cleared by the [place] FDA. When there are no FDA-approved or cleared tests available, and other criteria are met, FDA can make tests available under an emergency access mechanism called an Emergency Use Authorization (EUA). The EUA for this test is supported by the [place] of Health and Human Service's (HHS's) declaration [...] #### B MP, LIPA, YVETTE, LIVER #### [facility] [address] [place] [address] Dr. Idania Roldan CBC AUTO DIFFon 08-21-2022 BASO # 0.0 103/ul Normal 0.0-0.1 [facility] Comment on above: Performed By: #### P T, PTT #### [facility] [address] [place] [address] Dr. Idania Roldan Basophils/100 WBC (Bld) 0.4 % Normal 0.2-2.0 [facility] Comment on above: Performed By: #### P T, PTT #### [facility] [address] [place] [address] Dr. Idania Roldan EO # 0.1 103/ul Normal 0.0-0.7 [facility] Comment on above: Performed By: #### P T, PTT #### [facility] [address] [place] [address] Dr. Idania Roldan Eosinophils/100 WBC (Bld) 1.3 % Normal 0.9-7.0 [facility] Comment on above: Performed By: #### P T, PTT #### [facility] [address] [place] [address] Dr. Idania Roldan Erythrocyte distribution width (RBC) [Ratio] 15.3 % Critically high 11.0-15.0 [facility] Comment on above: Performed By: #### P T, PTT #### [facility] [address] [place] [address] Dr. Idania Roldan Hematocrit (Bld) [Volume fraction] 32.1 % Critically low 36.0-48.0 [facility] Comment on above: Performed By: #### P T, PTT #### [facility] [address] [place] [address] Dr. Idania Roldan Hemoglobin (Bld) [Mass/Vol] 9.9 g/dL Critically low 12.0-16.0 [facility] Comment on above: Performed By: #### P T, PTT #### [facility] [address] [place] [address] Dr. Idania Roldan IG # 0.01 10e3/ul Normal 0.00-0.03 [facility] Comment on above: Performed By: #### P T, PTT #### [facility] [address] [place] [address] Dr. Idania Roldan IG % 0.1 % Normal 0.0-0.5 [facility] Comment on above: Performed By: #### P T, PTT #### [facility] [address] [place] [address] Dr. Idania Roldan LYMPH # 2.7 103/ul Normal 1.2-3.8 [facility] Comment on above: Performed By: #### P T, PTT #### [facility] [address] [place] [address] Dr. Idania Roldan Lymphocytes/100 WBC (Bld) 35.7 % Normal 20.5-60.0 [facility] Comment on above: Performed By: #### P T, PTT #### [facility] [address] [place] [address] Dr. Idania Roldan MANUAL DIFF REQ NO Normal [facility] Comment on above: Performed By: #### P T, PTT #### [facility] [address] [place] [address] Dr. Idania Roldan MCH (RBC) [Entitic mass] 24.8 pg Critically low 26.7-34.0 [facility] Comment on above: Performed By: #### P T, PTT #### [facility] [address] [place] [address] Dr. Idania Roldan MCHC (RBC) [Mass/Vol] 30.8 g/dL Normal 29.9-35.2 [facility] Comment on above: Performed By: #### P T, PTT #### [facility] [address] [place] [address] Dr. Idania Roldan MCV (RBC) [Entitic vol] 80.5 fL Critically low 81.0-99.0 [facility] Comment on above: Performed By: #### P T, PTT #### [facility] [address] [place] [address] Dr. Idania Roldan MONO # 0.5 103/ul Normal 0.3-0.8 [facility] Comment on above: Performed By: #### P T, PTT #### [facility] [address] [place] [address] Dr. Idania Roldan Monocytes/100 WBC (Bld) 6.1 % Normal 1.7-12.0 [facility] Comment on above: Performed By: #### P T, PTT #### [facility] [address] [place] [address] Dr. Idania Roldan NEUT # 4.2 103/ul Normal 1.4-6.5 [facility] Comment on above: Performed By: #### P T, PTT #### [facility] [address] [place] [address] Dr. Idania Roldan Neutrophils/100 WBC (Bld) 56.4 % Normal 43.0-75.0 [facility] Comment on above: Performed By: #### P T, PTT #### [facility] [address] [place] [address] Dr. Idania Roldan Platelet mean volume (Bld) [Entitic vol] 9.4 fL Critically low 9.5-13.5 [facility] Comment on above: Performed By: #### P T, PTT #### [facility] [address] [address] [address] Idania Roldan PLT 296 103/ul Normal 150-450 [facility] Comment on above: Performed By: #### P T, PTT #### [facility] [address] [address] [address] Idania Roldan RBC 3.99 106/ul Critically low 4.20-5.40 [facility] Comment on above: Performed By: #### P T, PTT #### [facility] [address] [address] [address] Idania Roldan WBC 7.5 103/ul Normal 4.0-11.0 [facility] Comment on above: Performed By: #### P T, PTT #### [facility] [address] ABD/PELV W CONon [...] RUSSELL DUFF Date: 2022-08-21 12:35 Normal [facility] URINE PROFILEon 2 Bilirubin Ql (U) Unable to perform te sting due to color interference. Abnormal NEGATIVE [facility] Comment on above: Performed By: #### B MP, LIPA, YVETTE, LIVER #### [facility] [address] [address] [address] Idania Roldan Clarity (U) TURBID Abnormal CLEAR [facility] Comment on above: Performed By: #### B MP, LIPA, YVETTE, LIVER #### [facility] [address] [address] [address] Idania Roldan Color (U) RED Abnormal YELLOW [facility] Comment on above: Performed By: #### B MP, LIPA, YVETTE, LIVER #### [facility] [address] [address] [address] Idania Roldan ERUAHD A micrscopic examina tion will be performed if indicated. Normal [facility] Comment on above: Performed By: #### B MP, LIPA, YVETTE, LIVER #### [facility] [address] [address] [address] Idania Roldan Glucose Ql (U) Unable to perform te sting due to color interference. Abnormal NEGATIVE [facility] Comment on above: Performed By: #### B MP, LIPA, YVETTE, LIVER #### [facility] [address] [address] [address] Idania Roldan Hemoglobin Ql (U) Unable to perform te sting due to color interference. Abnormal NEGATIVE [facility] Comment on above: Performed By: #### B MP, LIPA, YVETTE, LIVER #### [facility] [address] [address] [address] Idania Roldan Ketones Ql (U) Unable to perform te sting due to color interference. Abnormal NEGATIVE [facility] Comment on above: Performed By: #### B MP, LIPA, YVETTE, LIVER #### [facility] [address] [address] [address] Idania Roldan LEUKOCYTES Unable to perform te sting due to color interference. Abnormal NEGATIVE [facility] Comment on above: Performed By: #### B MP, LIPA, YVETTE, LIVER #### [facility] [address] [place] [address] Dr. Idania Roldan Nitrite Ql (U) Unable to perform te sting due to color interference. Abnormal NEGATIVE [facility] Comment on above: Performed By: #### B MP, LIPA, YVETTE, LIVER #### [facility] [address] [place] [address] Dr. Idania Roldan pH Unable to perform te sting due to color interference. Abnormal 5-9 [facility] Comment on above: Performed By: #### B MP, LIPA, YVETTE, LIVER #### [facility] [address] [place] [address] Dr. Idania Roldan SPEC GRAVITY 1.020 Normal 1.005-<=1.02 5 [facility] Comment on above: Performed By: #### B MP, LIPA, YVETTE, LIVER #### [facility] [address] [place] [address] Dr. Idania Roldan UA PROTEIN Unable to perform te sting due to color interference. Normal NEGATIVE/ TRACE [facility] Comment on above: Performed By: #### B MP, LIPA, YVETTE, LIVER #### [facility] [address] [place] [address] Dr. Idania Roldan UR MICRO IND INDICATED Normal [facility] Comment on above: Performed By: #### B MP, LIPA, YVETTE, LIVER #### [facility] [address] [place] [address] Dr. Idania Roldan UROBILINOGEN Unable to perform te sting due to color interference. Normal 0.2 - 1.0 [facility] Comment on above: Performed By: #### B MP, LIPA, YVETTE, LIVER #### [facility] [address] [place] [address] Dr. Idania Roldan PROF 14(COMP METB)on 11-11-2 022 Albumin [Mass/Vol] 4.2 g/dL Normal 3.4-5.0 [facility] Comment on above: Performed By: #### P T, PTT #### [facility] [address] [place] [address] Dr. Idania Roldan Albumin/Globulin [Mass ratio] 1.0 {ratio} Normal [facility] Comment on above: Performed By: #### P T, PTT #### [facility] [address] [address] [address] Idania Roldan ALP [Catalytic activity/Vol] 91 U/L Normal 46-116 [facility] Comment on above: Performed By: #### P T, PTT #### [facility] [address] [place] [address] Dr. Idania Roldan ALT [Catalytic activity/Vol] 15 U/L Normal 14-59 [facility] Comment on above: Performed By: #### P T, PTT #### [facility] [address] [place] [address] Dr. Idania Roldan Anion gap [Moles/Vol] 9.6 mmol/L Normal [facility] Comment on above: Performed By: #### P T, PTT #### [facility] [address] [place] [address] Dr. Idania Roldan AST [Catalytic activity/Vol] 14 U/L Critically low 15-37 [facility] Comment on above: Performed By: #### P T, PTT #### [facility] [address] [place] [address] Dr. Idania Roldan Bilirubin [Mass/Vol] 0.2 mg/dL Normal 0.2-1.0 [facility] Comment on above: Performed By: #### P T, PTT #### [facility] [address] [place] [address] Dr. Idanai Roldan Calcium [Mass/Vol] 9.2 mg/dL Normal 8.5-10.1 [facility] Comment on above: Performed By: #### P T, PTT #### [facility] [address] [place] [address] Dr. Idania Roldan Chloride [Moles/Vol] 103 mmol/L Normal 98-107 [facility] Comment on above: Performed By: #### P T, PTT #### [facility] [address] [place] [address] Dr. Idania Roldan CO2 [Moles/Vol] 31.2 mmol/L Normal 21.0-32.0 [facility] Comment on above: Performed By: #### P T, PTT #### [facility] [address] [place] [address] Dr. Idania Roldan Creatinine [Mass/Vol] 0.76 mg/dL Normal 0.55-1.02 [facility] Comment on above: Performed By: #### P T, PTT #### [facility] [address] [place] [address] Dr. Idania Roldan EGFR-AF WALLISIAN >60 Normal >=60 [facility] Comment on above: Performed By: #### P T, PTT #### [facility] [address] [place] [address] Dr. Idania Roldan EGFR-NON AF WALLISIAN >60 Normal >=60 [facility] Comment on above: Performed By: #### P T, PTT #### [facility] [address] [place] [address] Dr. Idania Roldan Globulin (S) [Mass/Vol] 4.2 g/dL Normal [facility] Comment on above: Performed By: #### P T, PTT #### [facility] [address] [place] [address] Dr. Idania Roldan Glucose [Mass/Vol] 107 mg/dL Critically high 74-106 [facility] Comment on above: Performed By: #### P T, PTT #### [facility] [address] [place] [address] Dr. Idania Roldan Potassium [Moles/Vol] 3.8 mmol/L Normal 3.5-5.1 [facility] Comment on above: Performed By: #### P T, PTT #### [facility] [address] [place] [address] Dr. Idania Roldan Protein [Mass/Vol] 8.4 g/dL Critically high 6.4-8.2 [facility] Comment on above: Performed By: #### P T, PTT #### [facility] [address] [place] [address] Dr. Idania Roldan Sodium [Moles/Vol] 140 mmol/L Normal 136-145 [facility] Comment on above: Performed By: #### P T, PTT #### [facility] [address] [place] [address] Dr. Idania Roldan Urea nitrogen [Mass/Vol] 12.0 mg/dL Normal 7.0-18.0 [facility] Comment on above: Performed By: #### P T, PTT #### [facility] [address] [place] [address] Dr. Idania Roldan Urea nitrogen/Creatinine [Mass ratio] 15.8 mg/mg Normal [facility] Comment on above: Performed By: #### P T, PTT #### [facility] [address] [place] [address] Dr. Idania Roldan URINE MICROSCOPIC ONLYon BACTERIA NONE SEEN Normal NONE SEEN [facility] Comment on above: Performed By: #### B MP, LIPA, YVETTE, LIVER #### [facility] [address] [place] [address] Dr. Idania Roldan Bacteria identified Cx Nom (U) NOT INDICATED Normal [facility] Comment on above: Performed By: #### B MP, LIPA, YVETTE, LIVER #### [facility] [address] [place] [address] Dr. Idania Roldan CAST NONE SEEN Normal NONE SEEN [facility] Comment on above: Performed By: #### B MP, LIPA, YVETTE, LIVER #### [facility] [address] [place] [address] Dr. Idania Roldan Crystals LM Nom (Urine sed) NONE SEEN Normal NONE SEEN [facility] Comment on above: Performed By: #### B MP, LIPA, YVETTE, LIVER #### [facility] [address] [place] [address] Dr. Idania Roldan Epithelial cells LM Ql (Urine sed) RARE Normal NONE SEEN /RARE [facility] Comment on above: Performed By: #### B MP, LIPA, YVETTE, LIVER #### [facility] [address] [place] [address] Dr. Idania Roldan MUCOUS NONE SEEN Normal NONE SEEN [facility] Comment on above: Performed By: #### B MP, LIPA, YVETTE, LIVER #### [facility] [address] [place] [address] Dr. Idania Roldan RBC (U) [#/Vol] /uL Abnormal 0-2 [facility] Comment on above: Performed By: #### B MP, LIPA, YVETTE, LIVER #### [facility] [address] [place] [address] Dr. Idania Roldan WBC 2-5 Abnormal NONE SEEN [facility] Comment on above: Performed By: #### B MP, LIPA, YVETTE, LIVER #### [facility] [address] [place] [address] Dr. Idania Roldan CBC AUTO DIFFon 08-19-2022 BASO # 0.0 103/ul Normal 0.0-0.1 [facility] Comment on above: Performed By: #### P T, PTT #### [facility] [address] [place] [address] Dr. Idania Roldan Basophils/100 WBC (Bld) 0.4 % Normal 0.2-2.0 [facility] Comment on above: Performed By: #### P T, PTT #### [facility] [address] [place] [address] Dr. Idania Roldan EO # 0.1 103/ul Normal 0.0-0.7 [facility] Comment on above: Performed By: #### P T, PTT #### [facility] [address] [place] [address] Dr. Idania Roldan Eosinophils/100 WBC (Bld) 2.0 % Normal 0.9-7.0 [facility] Comment on above: Performed By: #### P T, PTT #### [facility] [address] [place] [address] Dr. Idania Roldan Erythrocyte distribution width (RBC) [Ratio] 14.8 % Normal 11.0-15.0 [facility] Comment on above: Performed By: #### P T, PTT #### [facility] [address] [place] [address] Dr. Idania Roldan Hematocrit (Bld) [Volume fraction] 31.5 % Critically low 36.0-48.0 [facility] Comment on above: Performed By: #### P T, PTT #### [facility] [address] [place] [address] Dr. Idania Roldan Hemoglobin (Bld) [Mass/Vol] 9.5 g/dL Critically low 12.0-16.0 [facility] Comment on above: Performed By: #### P T, PTT #### [facility] [address] [place] [address] Dr. Idania Roldan IG # 0.01 10e3/ul Normal 0.00-0.03 [facility] Comment on above: Performed By: #### P T, PTT #### [facility] [address] [place] [address] Dr. Idania Roldan IG % 0.2 % Normal 0.0-0.5 [facility] Comment on above: Performed By: #### P T, PTT #### [facility] [address] [place] [address] Dr. Idania Roldan LYMPH # 1.4 103/ul Normal 1.2-3.8 [facility] Comment on above: Performed By: #### P T, PTT #### [facility] [address] [place] [address] Dr. Idania Roldan Lymphocytes/100 WBC (Bld) 29.9 % Normal 20.5-60.0 [facility] Comment on above: Performed By: #### P T, PTT #### [facility] [address] [place] [address] Dr. Idania Roldan MANUAL DIFF REQ NO Normal [facility] Comment on above: Performed By: #### P T, PTT #### [facility] [address] [place] [address] Dr. Idania Roldan MCH (RBC) [Entitic mass] 24.4 pg Critically low 26.7-34.0 [facility] Comment on above: Performed By: #### P T, PTT #### [facility] [address] [place] [address] Dr. Idania Roldan MCHC (RBC) [Mass/Vol] 30.2 g/dL Normal 29.9-35.2 [facility] Comment on above: Performed By: #### P T, PTT #### [facility] [address] [place] [address] Dr. Idania Roldan MCV (RBC) [Entitic vol] 80.8 fL Critically low 81.0-99.0 [facility] Comment on above: Performed By: #### P T, PTT #### [facility] [address] [place] [address] Dr. Idania Roldan MONO # 0.2 103/ul Critically low 0.3-0.8 [facility] Comment on above: Performed By: #### P T, PTT #### [facility] [address] [place] [address] Dr. Idania Roldan Monocytes/100 WBC (Bld) 5.2 % Normal 1.7-12.0 [facility] Comment on above: Performed By: #### P T, PTT #### [facility] [address] [place] [address] Dr. Idania Roldan NEUT # 2.9 103/ul Normal 1.4-6.5 [facility] Comment on above: Performed By: #### P T, PTT #### [facility] [address] [place] [address] Dr. Idania Roldan Neutrophils/100 WBC (Bld) 62.3 % Normal 43.0-75.0 [facility] Comment on above: Performed By: #### P T, PTT #### [facility] [address] [place] [address] Dr. Idania Roldan Platelet mean volume (Bld) [Entitic vol] 8.6 fL Critically low 9.5-13.5 [facility] Comment on above: Performed By: #### P T, PTT #### [facility] [address] [address] [address] Idania Roldan PLT 269 103/ul Normal 150-450 [facility] Comment on above: Performed By: #### P T, PTT #### [facility] [address] [address] [address] Idania Roldan RBC 3.90 106/ul Critically low 4.20-5.40 [facility] Comment on above: Performed By: #### P T, PTT #### [facility] [address] [place] [address] Dr. Idania Roldan WBC 4.6 103/ul Normal 4.0-11.0 [facility] Comment on above: Performed By: #### P T, PTT #### [facility] [address] [place] [address] Dr. Idania Roldan PROF CHEM 8 (BAS METB)on Anion gap [Moles/Vol] 9.0 mmol/L Normal [facility] Comment on above: Performed By: #### B MP, LIPA, YVETTE, LIVER #### [facility] [address] [place] [address] Dr. Idania Roldan Calcium [Mass/Vol] 9.1 mg/dL Normal 8.5-10.1 [facility] Comment on above: Performed By: #### B MP, LIPA, YVETTE, LIVER #### [facility] [address] [place] [address] Dr. Idania Roldan Chloride [Moles/Vol] 104 mmol/L Normal 98-107 [facility] Comment on above: Performed By: #### B MP, LIPA, YVETTE, LIVER #### [facility] [address] [place] [address] Dr. Idania Roldan CO2 [Moles/Vol] 31.5 mmol/L Normal 21.0-32.0 [facility] Comment on above: Performed By: #### B MP, LIPA, YVETTE, LIVER #### [facility] [address] [place] [address] Dr. Idania Roldan Creatinine [Mass/Vol] 0.59 mg/dL Normal 0.55-1.02 [facility] Comment on above: Performed By: #### B MP, LIPA, YVETTE, LIVER #### [facility] [address] [place] [address] Dr. Idania Roldan EGFR-AF WALLISIAN >60 Normal >=60 [facility] Comment on above: Performed By: #### B MP, LIPA, YVETTE, LIVER #### [facility] [address] [place] [address] Dr. Idania Roldan EGFR-NON AF WALLISIAN >60 Normal >=60 [facility] Comment on above: Performed By: #### B MP, LIPA, YVETTE, LIVER #### [facility] [address] [place] [address] Dr. Idania Roldan Glucose [Mass/Vol] 90 mg/dL Normal 74-106 [facility] Comment on above: Performed By: #### B MP, LIPA, YVETTE, LIVER #### [facility] [address] [place] [address] Dr. Idania Roldan Potassium [Moles/Vol] 4.5 mmol/L Normal 3.5-5.1 [facility] Comment on above: Performed By: #### B MP, LIPA, YVETTE, LIVER #### [facility] [address] [place] [address] Dr. Idania Roldan Sodium [Moles/Vol] 140 mmol/L Normal 136-145 [facility] Comment on above: Performed By: #### B MP, LIPA, YVETTE, LIVER #### [facility] [address] [place] [address] Dr. Idania Roldan Urea nitrogen [Mass/Vol] 8.0 mg/dL Normal 7.0-18.0 [facility] Comment on above: Performed By: #### B MP, LIPA, YVETTE, LIVER #### [facility] [address] [place] [address] Dr. Idania Roldan Urea nitrogen/Creatinine [Mass ratio] 13.6 mg/mg Normal [facility] Comment on above: Performed By: #### B MP, LIPA, YVETTE, LIVER #### [facility] [address] [place] [address] Dr. Idania Roldan PROTIMEon 08-19-2022 INR Coag (PPP) [Relative time] 0.93 {INR} Normal [facility] Comment on above: Performed By: #### B MP, LIPA, YVETTE, LIVER #### [facility] [address] [address] [address] Idania Roldan INR GUIDELINES SEE BELOW Normal [facility] Comment on above: Result Comment: TARUN RED INR: 2.0 - 3.0 CONDITIONS NOT LISTED BELOW 2.5 - 3.5 FOR PROSTHETIC HEART VALVE REPLACEMENT 2.5 - 3.5 RECURRENT THROMBOSIS Performed By: #### B MP, LIPA, YVETTE, LIVER #### [facility] [address] [address] [address] Idania Roldan PT Coag (PPP) [Time] 10.1 s Normal 9.0-11.6 [facility] Comment on above: Performed By: #### B MP, LIPA, YVETTE, LIVER #### [facility] [address] [address] [address] Idania Roldan PTTon 08-19-2022 aPTT Coag (Bld) [Time] 28.1 s Normal 22.3-36.2 [facility] Comment on above: Performed By: #### B MP, LIPA, YVETTE, LIVER #### [facility] [address] [address] [address] Idania Roldan [facility]11 SARS-CoV-2 (COVID-19) RNA MAMIE+probe Ql (Unsp spec) Not detected Normal NOT DETECTED [facility] Comment on above: Result Comment: This test is not yet approved or cleared by the [place] FDA. When there are no FDA-approved or cleared tests available, and other criteria are met, FDA can make tests available under an emergency access mechanism called an Emergency Use Authorization (EUA). The EUA for this test is supported by the [employer] of Health and Human Service's (HHS's) declaration [...] Performed By: #### P T, PTT #### [facility] [address] [place] [address] Dr. Idania Roldan CBC AUTO DIFFon 07-10-2022 BASO # 0.0 103/ul Normal 0.0-0.1 [facility] Comment on above: Performed By: #### P T, PTT #### [facility] [address] [place] [address] Dr. Idania Roldan Basophils/100 WBC (Bld) 0.2 % Normal 0.2-2.0 [facility] Comment on above: Performed By: #### P T, PTT #### [facility] [address] [place] [address] Dr. Idania Roldan EO # 0.1 103/ul Normal 0.0-0.7 [facility] Comment on above: Performed By: #### P T, PTT #### [facility] [address] [place] [address] Dr. Idania Roldan Eosinophils/100 WBC (Bld) 1.3 % Normal 0.9-7.0 [facility] Comment on above: Performed By: #### P T, PTT #### [facility] [address] [place] [address] Dr. Idania Roldan Erythrocyte distribution width (RBC) [Ratio] 16.4 % Critically high 11.0-15.0 [facility] Comment on above: Performed By: #### P T, PTT #### [facility] [address] [place] [address] Dr. Idania Roldan Hematocrit (Bld) [Volume fraction] 33.2 % Critically low 36.0-48.0 [facility] Comment on above: Performed By: #### P T, PTT #### [facility] [address] [place] [address] Dr. Idania Roldan Hemoglobin (Bld) [Mass/Vol] 10.3 g/dL Critically low 12.0-16.0 [facility] Comment on above: Performed By: #### P T, PTT #### [facility] [address] [place] [address] Dr. Idania Roldan IG # 0.01 10e3/ul Normal 0.00-0.03 [facility] Comment on above: Performed By: #### P T, PTT #### [facility] [address] [place] [address] Dr. Idania Roldan IG % 0.2 % Normal 0.0-0.5 [facility] Comment on above: Performed By: #### P T, PTT #### [facility] [address] [place] [address] Dr. Idania Roldan LYMPH # 1.8 103/ul Normal 1.2-3.8 [facility] Comment on above: Performed By: #### P T, PTT #### [facility] [address] [place] [address] Dr. Idania Roldan Lymphocytes/100 WBC (Bld) 38.8 % Normal 20.5-60.0 [facility] Comment on above: Performed By: #### P T, PTT #### [facility] [address] [place] [address] Dr. Idania Roldan MANUAL DIFF REQ NO Normal [facility] Comment on above: Performed By: #### P T, PTT #### [facility] [address] [place] [address] Dr. Idania Roldan MCH (RBC) [Entitic mass] 25.9 pg Critically low 26.7-34.0 [facility] Comment on above: Performed By: #### P T, PTT #### [facility] [address] [place] [address] Dr. Idania Roldan MCHC (RBC) [Mass/Vol] 31.0 g/dL Normal 29.9-35.2 [facility] Comment on above: Performed By: #### P T, PTT #### [facility] [address] [place] [address] Dr. Idania Roldan MCV (RBC) [Entitic vol] 83.4 fL Normal 81.0-99.0 [facility] Comment on above: Performed By: #### P T, PTT #### [facility] [address] [place] [address] Dr. Idania Roldan MONO # 0.3 103/ul Normal 0.3-0.8 [facility] Comment on above: Performed By: #### P T, PTT #### [facility] [address] [place] [address] Dr. Idania Roldan Monocytes/100 WBC (Bld) 6.1 % Normal 1.7-12.0 [facility] Comment on above: Performed By: #### P T, PTT #### [facility] [address] [place] [address] Dr. Idania Roldan NEUT # 2.5 103/ul Normal 1.4-6.5 [facility] Comment on above: Performed By: #### P T, PTT #### [facility] [address] [place] [address] Dr. Idania Roldan Neutrophils/100 WBC (Bld) 53.4 % Normal 43.0-75.0 [facility] Comment on above: Performed By: #### P T, PTT #### [facility] [address] [place] [address] Dr. Idaina Roldan Platelet mean volume (Bld) [Entitic vol] 10.1 fL Normal 9.5-13.5 [facility] Comment on above: Performed By: #### P T, PTT #### [facility] [address] [place] [address] Dr. Idania Roldan PLT 239 103/ul Normal 150-450 [facility] Comment on above: Performed By: #### P T, PTT #### [facility] [address] [place] [address] Dr. Idania Roldan RBC 3.98 106/ul Critically low 4.20-5.40 [facility] Comment on above: Performed By: #### P T, PTT #### [facility] [address] [address] [address] Idania Roldan WBC 4.6 103/ul Normal 4.0-11.0 [facility] Comment on above: Performed By: #### P T, PTT #### [facility] [address] [address] [address] Idania Roldan PROF CHEM 8 (BAS METB)on Anion gap [Moles/Vol] 8.4 mmol/L Normal [facility] Comment on above: Performed By: #### B MP #### [facility] [address] [address] [address] Idania Roldan Calcium [Mass/Vol] 9.3 mg/dL Normal 8.5-10.1 [facility] Comment on above: Performed By: #### B MP #### [facility] [address] [address] [address] Idania Roldan Chloride [Moles/Vol] 103 mmol/L Normal 98-107 [facility] Comment on above: Performed By: #### B MP #### [facility] [address] [address] [address] Idania Roldan CO2 [Moles/Vol] 32.9 mmol/L Critically high 21.0-32.0 [facility] Comment on above: Performed By: #### B MP #### [facility] [address] [address] [address] Idania Roldan Creatinine [Mass/Vol] 0.70 mg/dL Normal 0.55-1.02 [facility] Comment on above: Performed By: #### B MP #### [facility] [address] [address] [address] Idania Roldan EGFR-AF WALLISIAN >60 Normal >=60 [facility] Comment on above: Performed By: #### B MP #### [facility] [address] [address] [address] Idania Roldan EGFR-NON AF WALLISIAN >60 Normal >=60 [facility] Comment on above: Performed By: #### B MP #### [facility] [address] [address] [address] Idania Roldan Glucose [Mass/Vol] 73 mg/dL Critically low 74-106 [facility] Comment on above: Performed By: #### B MP #### [facility] [address] [address] [address] Idania Roldan Potassium [Moles/Vol] 4.3 mmol/L Normal 3.5-5.1 [facility] Comment on above: Performed By: #### B MP #### [facility] [address] [address] [address] Idania Roldan Sodium [Moles/Vol] 140 mmol/L Normal 136-145 [facility] Comment on above: Performed By: #### B MP #### [facility] [address] [address] [address] Idania Roldan Urea nitrogen [Mass/Vol] 16.0 mg/dL Normal 7.0-18.0 [facility] Comment on above: Performed By: #### B MP #### [facility] [address] [address] [address] Idania Roldan Urea nitrogen/Creatinine [Mass ratio] 22.9 mg/mg Normal [facility] Comment on above: Performed By: #### B MP #### [facility] [address] [address] [address] Idania Roldan PROTIMEon 07-10-2022 INR Coag (PPP) [Relative time] 1.00 {INR} Normal [facility] Comment on above: Performed By: #### P T, PTT #### [facility] [address] [address] [address] Idania Roldan INR GUIDELINES SEE BELOW Normal [facility] Comment on above: Result Comment: TARUN RED INR: 2.0 - 3.0 CONDITIONS NOT LISTED BELOW 2.5 - 3.5 FOR PROSTHETIC HEART VALVE REPLACEMENT 2.5 - 3.5 RECURRENT THROMBOSIS Performed By: #### P T, PTT #### [facility] [address] [address] [address] Idania Roldan PT Coag (PPP) [Time] 10.8 s Normal 9.0-11.6 [facility] Comment on above: Performed By: #### P T, PTT #### [facility] [address] [place], [place] [address] Dr. Idania Roldan PTTon 07-10-2022 aPTT Coag (Bld) [Time] 29.3 s Normal 22.3-36.2 [facility] Comment on above: Performed By: #### P T, PTT #### [facility] [address] [place], [place] [address] Dr. Idania Roldan Operative Reporton Operative Report MR#: [id number] I [facility] Pt. Name: Elvi Moore Room #: [id number] Discharge 06/01/2022 Date: Birthdate: 1980 OPERATIVE REPORT DATE OF SURGERY: 06/01/2022 SURGEON: Kevin Lane M.D. [employer]CHANDISER: Duy Cavazos ANESTHESIA: General anesthesia. ESTIMATED BLOOD [...] arthrotomy was closed with soft #2 interrupted [id number]-kb-[id number] suture. The remainder of the incision closed in layered fashion. Sterile dressing applied. At the conclusion of the case, all sponge and needle counts correct. I was present for the critical portions of this case. Electronically Signed by: Kevin Lnae M.D. 06/09/2022 07:[address] M.D. Date Dict: 06/03/2022/07:15 A/Kevin Lane M.D. Date Trans: 06/03/2022 08:09 A/moreliao [id number] cc: Arleth Acharya M.D. [address], [place] [id number] Normal [facility] *ANAEROBIC CULTUREon 022 *ANAEROBIC CULTURE Clinical Report: (D) Specimen/Source: FLUID/INTRAOP SPEC Collected: 06/01/2022 14:08 Status: Final Last Updated: 06/06/2022 06:35 (1) 1. LEFT KNEE JOINT FLUID CULT RES (Final) No Anaerobes Isolated 5 Days Normal [facility] Comment on above: Order Comment: 1. LE FT KNEE JOINT FLUID Performed By: #### 3 0312 ####[facility] [address] *ANAEROBIC CULTURE Clinical Report: (D) Specimen/Source: TISSUE/INTRAOP SPEC Collected: 06/01/2022 14:08 Status: Final Last Updated: 06/06/2022 06:35 (1) 2. LEFT KNEE MEDIAL SYNOVIUM CULT RES (Final) No Anaerobes Isolated 5 Days Normal [facility] Comment on above: Order Comment: 2. LE FT KNEE MEDIAL SYNOVIUM Performed By: #### 6 1405 #### [facility] [address] *ANAEROBIC CULTURE Clinical Report: (D) Specimen/Source: TISSUE/INTRAOP SPEC Collected: 06/01/2022 14:08 Status: Final Last Updated: 06/06/2022 06:35 (1) 3. LEFT KNEE LATERAL SYNOVIUM CULT RES (Final) No Anaerobes Isolated 5 Days Normal [facility] Comment on above: Order Comment: 3. LE FT KNEE LATERAL SYNOVIUM Performed By: #### 6 1405 #### [facility] [address] *BODY FLUID CULTUREon 2021 *BODY FLUID CULTURE Clinical Report: (D) Specimen/Source: FLUID/INTRAOP SPEC Collected: 06/01/2022 14:08 Status: Final Last Updated: 06/06/2022 06:39 (1) 1. LEFT KNEE JOINT FLUID GRAM (Final) Quantity Not Sufficient CULT RES (Final) No Growth Day 5 Normal [facility] Comment on above: Order Comment: 1. LE FT KNEE JOINT FLUID Performed By: #### 3 0318 ####[facility] [address] *TISSUE CULTUREon 06-01-2022 *TISSUE CULTURE Clinical Report: (D) Specimen/Source: TISSUE/INTRAOP SPEC Collected: 06/01/2022 14:08 Status: Final Last Updated: 06/06/2022 06:40 (1) 2. LEFT KNEE MEDIAL SYNOVIUM GRAM (Final) Many Polys No Bacteria Seen CULT RES (Final) No Growth Day 5 Normal [facility] Comment on above: Order Comment: 2. LE FT KNEE MEDIAL SYNOVIUM Performed By: #### 3 0338 ####[facility] [address] *TISSUE CULTURE Clinical Report: (D) Specimen/Source: TISSUE/INTRAOP SPEC Collected: 06/01/2022 14:08 Status: Final Last Updated: 06/06/2022 06:39 (1) 3. LEFT KNEE LATERAL SYNOVIUM GRAM (Final) Many Polys No Bacteria Seen CULT RES (Final) No Growth Day 5 Normal [facility] Comment on above: Order Comment: 3. LE FT KNEE LATERAL SYNOVIUM Performed By: #### 3 0338 ####[facility] [address] POC GLUCOSE LABon 06-01-2022 Glucose [Mass/Vol] 86 mg/dL Normal 70-100 [facility] Comment on above: Performed By: #### 8 5499 #### [address] [address], [facility] PORTABLE KNEE LEFT 2 VWSon 0 06-01-2022 PORTABLE KNEE LEFT 2 VWS [facility] Department of Radiology [address] [place] [id number] Patient Name: ELVI MOORE : 1980 Sex: [...] planned Electronically signed: Yvette Andrade. Transcribed by: [email or web address], User Resident: Electronically Signed by: YVETTE ANDRADE @ 06/02/2022 08:53 AM Normal [facility] Comment on above: Order Comment: Hardw are Evaluation, in PACU *MRSA/MSSA DNA NASALon 05-26 *MRSA/MSSA DNA NASAL Clinical Report: (D) Specimen: NASAL SWAB Collected: 05/26/2022 15:23 Status: Final Last Updated: 05/27/2022 13:43 MSSA DNA (Final) Negative MRSA DNA (Final) Negative Normal [facility] Comment on above: Performed By: #### 3 1595 #### [facility] [address] C REACTIVE PROTEINon 022 CRP [Mass/Vol] 1.3 mg/L Normal 0.0-7.0 [facility] Comment on above: Performed By: #### 6 1405 #### [facility] [address] [place] [address], [facility] CBC W/DIFFon 05-26-2022 ABS IMM GRANS 0.0 10*3/uL Normal 0.0-0.2 [facility] Comment on above: Performed By: #### 6 1405 #### [facility] [address] [place] [address], [facility] ABS NEUTROPHILS 2.5 10*3/uL Normal 1.6-7.6 [facility] Comment on above: Performed By: #### 6 1405 #### [facility] [address] [place] [address], [facility] Basophils (Bld) [#/Vol] 0.0 10*3/uL Normal 0.0-0.2 [facility] Comment on above: Performed By: #### 6 1405 #### [facility] [address] [place] [address], [facility] Basophils/100 WBC (Bld) 0.3 % Normal 0.0-1.0 [facility] Comment on above: Performed By: #### 6 1405 #### [facility] [address] Eosinophils (Bld) [#/Vol] 0.1 10*3/uL Normal 0.0-0.5 [facility] Comment on above: Performed By: #### 6 1405 #### [facility] [address] [facility]. [address] Eosinophils/100 WBC (Bld) 1.5 % Normal 0.0-6.0 [facility] Comment on above: Performed By: #### 6 1405 #### [facility] [address] Erythrocyte distribution width (RBC) [Ratio] 15.9 % High 11.5-15.0 [facility] Comment on above: Performed By: #### 6 1405 #### [facility] [address] Hematocrit (Bld) [Volume fraction] 35.0 % Low 36.0-45.0 [facility] Comment on above: Performed By: #### 6 1405 #### [facility] [address] Hemoglobin (Bld) [Mass/Vol] 10.6 g/dL Low 12.0-15.0 [facility] Comment on above: Performed By: #### 6 1405 #### [facility] [address] IMMATURE GRANS 0.2 % Normal 0.0-1.0 [facility] Comment on above: Performed By: #### 6 1405 #### [facility] [address] Lymphocytes (Bld) [#/Vol] 2.8 10*3/uL Normal 1.2-4.0 [facility] Comment on above: Performed By: #### 6 1405 #### [facility] [address] [facility] [place] [address], [facility] Lymphocytes/100 WBC (Bld) 48.0 % High 20.0-45.0 [facility] Comment on above: Performed By: #### 6 1405 #### [facility] [address] [facility] [place] [address], [facility] MCH (RBC) [Entitic mass] 24.5 pg Low 27.0-33.0 [facility] Comment on above: Performed By: #### 6 1405 #### [facility] [address] [place] [address], [facility] MCHC (RBC) [Mass/Vol] 30.3 g/dL Low 32.0-35.0 [facility] Comment on above: Performed By: #### 6 1405 #### [facility] [address] [facility] [place] [address], [facility] MCV (RBC) [Entitic vol] 81.0 fL Low 82.0-98.0 [facility] Comment on above: Performed By: #### 6 1405 #### [facility] [address] [place] [address], [facility] Monocytes (Bld) [#/Vol] 0.4 10*3/uL Normal 0.1-1.0 [facility] Comment on above: Performed By: #### 6 1405 #### [facility] [address] [place] [address], [facility] MONOS 6.8 % Normal 5.0-12.0 [facility] Comment on above: Performed By: #### 6 1405 #### [facility] [address] [place] [address], [facility] Neutrophils/100 WBC (Bld) 43.2 % Normal 40.0-72.0 [facility] Comment on above: Performed By: #### 6 1405 #### [facility] [address] [place] [address], [facility] Nucleated RBC/100 WBC (Bld) [Ratio] 0 % Normal 0-0 [facility] Comment on above: Performed By: #### 6 1405 #### [facility] [address] [place] [address], [facility] PLAT CNT 246 10*3/uL Normal 150-400 [facility] Comment on above: Performed By: #### 6 1405 #### [facility] [address] [facility] [place] [address], [facility] RBC (Bld) [#/Vol] 4.32 10*6/uL Normal 3.80-5.00 [facility] Comment on above: Performed By: #### 6 1405 #### [facility] [address] [facility] [place] [place] [address], [facility] WBC (Bld) [#/Vol] 5.87 10*3/uL Normal 4.00-10.60 [facility] Comment on above: Performed By: #### 6 1405 #### [facility] [address] [place] [address], [facility] HEMOGLOBIN A1Con 05-26-2022 Glucose [Moles/Vol] 100 mmol/L Normal [facility] Comment on above: Performed By: #### 3 1791 #### [facility] [address] [place] [address], [facility] HbA1c (Bld) [Mass fraction] 5.1 % Normal 4.0-6.0 [facility] Comment on above: Performed By: #### 3 1791 #### [facility] [address] [place] [address], [facility] SEDIMENTATION RATEon 022 SED RATE 17 mm/hr Normal 0-20 [facility] Comment on above: Performed By: #### 6 1405 #### [facility] [address] [facility] [place], [place] [address] US KIDNEYS BLADDERon [id number] [id number] US KIDNEYS [...] RUSSELL DUFF Date: 2022-05-02 16:18 Normal [facility] CBC AUTO DIFFon 04-29-2022 BASO # 0.0 103/ul Normal 0.0-0.1 [facility] Comment on above: Performed By: #### B MP LIPA, YVETTE, LIVER #### [facility] [address] [address] [address] Idania Roldan Basophils/100 WBC (Bld) 0.3 % Normal 0.2-2.0 [facility] Comment on above: Performed By: #### B MP, LIPA, YVETTE, LIVER #### [facility] [address] [address] [address] Idania Roldan EO # 0.1 103/ul Normal 0.0-0.7 [facility] Comment on above: Performed By: #### B MP LIPA, YVETTE, LIVER #### [facility] [address] [address] [address] Idania Roldan Eosinophils/100 WBC (Bld) 0.9 % Normal 0.9-7.0 [facility] Comment on above: Performed By: #### B RHIANNA LIPChristine YVETTE, LIVER #### [facility] [address] [place] [address] Dr. Idania Roldan Erythrocyte distribution width (RBC) [Ratio] 15.4 % Critically high 11.0-15.0 [facility] Comment on above: Performed By: #### B MP, LIPA, YVETTE, LIVER #### [facility] [address] [place] [address] Dr. Idania Roldan Hematocrit (Bld) [Volume fraction] 36.0 % Normal 36.0-48.0 [facility] Comment on above: Performed By: #### B MP, LIPA, YVETTE, LIVER #### [facility] [address] [place] [address] Dr. Idania Roldan Hemoglobin (Bld) [Mass/Vol] 11.2 g/dL Critically low 12.0-16.0 [facility] Comment on above: Performed By: #### B MP, LIPA, YVETTE, LIVER #### [facility] [address] [place] [address] Dr. Idania Roldan IG # 0.02 10e3/ul Normal 0.00-0.03 [facility] Comment on above: Performed By: #### B MP, LIPA, YVETTE, LIVER #### [facility] [address] [place] [address] Dr. Idania Roldan IG % 0.3 % Normal 0.0-0.5 [facility] Comment on above: Performed By: #### B MP, LIPA, YVETTE, LIVER #### [facility] [address] [place] [address] Dr. Idania Roldan LYMPH # 2.5 103/ul Normal 1.2-3.8 [facility] Comment on above: Performed By: #### B MP, LIPA, YVETTE, LIVER #### [facility] [address] [place] [address] Dr. Idania Roldan Lymphocytes/100 WBC (Bld) 36.2 % Normal 20.5-60.0 [facility] Comment on above: Performed By: #### B MP, LIPA, YVETTE, LIVER #### [facility] [address] [place] [address] Dr. Idania Roldan MANUAL DIFF REQ NO Normal [facility] Comment on above: Performed By: #### B MP, LIPA, YVETTE, LIVER #### [facility] [address] [place] [address] Dr. Idania Roldan MCH (RBC) [Entitic mass] 24.9 pg Critically low 26.7-34.0 [facility] Comment on above: Performed By: #### B MP, LIPA, YVETTE, LIVER #### [facility] [address] [place] [address] Dr. Idania Roldan MCHC (RBC) [Mass/Vol] 31.1 g/dL Normal 29.9-35.2 [facility] Comment on above: Performed By: #### B MP, LIPA, YVETTE, LIVER #### [facility] [address] [place] [address] Dr. Idania Roldan MCV (RBC) [Entitic vol] 80.2 fL Critically low 81.0-99.0 [facility] Comment on above: Performed By: #### B MP, LIPA, YVETTE, LIVER #### [facility] [address] [place] [address] Dr. Idania Roldan MONO # 0.5 103/ul Normal 0.3-0.8 [facility] Comment on above: Performed By: #### B MP, LIPA, YVETTE, LIVER #### [facility] [address] [place] [address] Dr. Idania Roldan Monocytes/100 WBC (Bld) 6.7 % Normal 1.7-12.0 [facility] Comment on above: Performed By: #### B MP, LIPA, YVETTE, LIVER #### [facility] [address] [place] [address] Dr. Idania Roldan NEUT # 3.8 103/ul Normal 1.4-6.5 [facility] Comment on above: Performed By: #### B MP, LIPA, YVETTE, LIVER #### [facility] [address] [place] [address] Dr. Idania Roldan Neutrophils/100 WBC (Bld) 55.6 % Normal 43.0-75.0 [facility] Comment on above: Performed By: #### B MP, LIPA, YVETTE, LIVER #### [facility] [address] [place] [address] Dr. Idania Roldan Platelet mean volume (Bld) [Entitic vol] 9.9 fL Normal 9.5-13.5 [facility] Comment on above: Performed By: #### B MP, LIPA, YVETTE, LIVER #### [facility] [address] [place] [address] Dr. Idania Roldan PLT 265 103/ul Normal 150-450 [facility] Comment on above: Performed By: #### B MP, LIPA, YVETTE, LIVER #### [facility] [address] [place] [address] Dr. Idania Roldan RBC 4.49 106/ul Normal 4.20-5.40 [facility] Comment on above: Performed By: #### B MP, LIPA, YVETTE, LIVER #### [facility] [address] [place] [address] Dr. Idania Roldan WBC 6.8 103/ul Normal 4.0-11.0 [facility] Comment on above: Performed By: #### B MP, LIPA, YVETTE, LIVER #### [facility] [address] [place] [address] Dr. Idania Roldan ER URINE PROFILEon 2 Bilirubin Ql (U) Negative Normal NEGATIVE [facility] Comment on above: Performed By: #### P T, PTT #### [facility] [address] [place] [address] Dr. Idania Roldan Clarity (U) CLEAR Normal CLEAR [facility] Comment on above: Performed By: #### P T, PTT #### [facility] [address] [place] [address] Dr. Idania Roldan Color (U) LT. YELLOW Normal YELLOW [facility] Comment on above: Performed By: #### P T, PTT #### [facility] [address] [place] [address] Dr. Yilan Roldan ERUAHD A micrscopic examina tion will be performed if indicated. Normal [facility] Comment on above: Performed By: #### P T, PTT #### [facility] [address] [place] [address] Dr. Idania Roldan Glucose Ql (U) Negative Normal NEGATIVE [facility] Comment on above: Performed By: #### P T, PTT #### [facility] [address] [place] [address] Dr. Idania Roldan Hemoglobin Ql (U) LARGE Abnormal NEGATIVE [facility] Comment on above: Performed By: #### P T, PTT #### [facility] [address] [place] [address] Dr. Idania Roldan Ketones Ql (U) Negative Normal NEGATIVE [facility] Comment on above: Performed By: #### P T, PTT #### [facility] [address] [place] [address] Dr. Idania Roldan LEUKOCYTES TRACE Abnormal NEGATIVE [facility] Comment on above: Performed By: #### P T, PTT #### [facility] [address] [place] [address] Dr. Idania Roldan Nitrite Ql (U) Negative Normal NEGATIVE [facility] Comment on above: Performed By: #### P T, PTT #### [facility] [address] [place] [address] Dr. Idania Roldan pH (U) 6.0 [pH] Normal 5-9 [facility] Comment on above: Performed By: #### P T, PTT #### [facility] [address] [place] [address] Dr. Idania Roldan SPEC GRAVITY 1.010 Normal 1.005-<=1.02 5 [facility] Comment on above: Performed By: #### P T, PTT #### [facility] [address] [place] [address] Dr. Idania Roldan UA PROTEIN Negative Normal NEGATIVE/ TRACE [facility] Comment on above: Performed By: #### P T, PTT #### [facility] [address] [place] [address] Dr. Idania Roldan UR MICRO IND INDICATED Normal [facility] Comment on above: Performed By: #### P T, PTT #### [facility] [address] [place] [address] Dr. Idania Roldan Urobilinogen Qn (U) 0.2 {Bryan'U}/dL Normal 0.2 - 1. 0 [facility] Comment on above: Performed By: #### P T, PTT #### [facility] [address] [place] [address] Dr. Idania Roldan PROF CHEM 8 (BAS METB)on Anion gap [Moles/Vol] 10.9 mmol/L Normal [facility] Comment on above: Performed By: #### P T, PTT #### [facility] [address] [place] [address] Dr. Idania Roldan Calcium [Mass/Vol] 8.9 mg/dL Normal 8.5-10.1 [facility] [place] Comment on above: Performed By: #### P T, PTT #### [facility] [address] [place] [address] Dr. Idania Roldan Chloride [Moles/Vol] 104 mmol/L Normal 98-107 [facility] Comment on above: Performed By: #### P T, PTT #### [facility] [address] [place] [address] Dr. Idania Roldan CO2 [Moles/Vol] 28.9 mmol/L Normal 21.0-32.0 [facility] Comment on above: Performed By: #### P T, PTT #### [facility] [address] [place] [address] Dr. Idania Roldan Creatinine [Mass/Vol] 0.71 mg/dL Normal 0.55-1.02 [facility] Comment on above: Performed By: #### P T, PTT #### [facility] [address] [place] [address] Dr. Idania Roldan EGFR-AF WALLISIAN >60 Normal >=60 [facility] Comment on above: Performed By: #### P T, PTT #### [facility] [address] [place] [address] Dr. Idania Roldan EGFR-NON AF WALLISIAN >60 Normal >=60 [facility] Comment on above: Performed By: #### P T, PTT #### [facility] [address] [address] [address] Idania Roldan Glucose [Mass/Vol] 88 mg/dL Normal 74-106 [facility] Comment on above: Performed By: #### P T, PTT #### [facility] [address] [place] [address] Dr. Idania Roldan Potassium [Moles/Vol] 3.8 mmol/L Normal 3.5-5.1 [facility] Comment on above: Performed By: #### P T, PTT #### [facility] [address] [place] [address] Dr. Idania Roldan Sodium [Moles/Vol] 140 mmol/L Normal 136-145 [facility] Comment on above: Performed By: #### P T, PTT #### [facility] [address] [place] [address] Dr. Idania Roldan Urea nitrogen [Mass/Vol] 13.0 mg/dL Normal 7.0-18.0 [facility] Comment on above: Performed By: #### P T, PTT #### [facility] [address] [place] [address] Dr. Idania Roldan Urea nitrogen/Creatinine [Mass ratio] 18.3 mg/mg Normal [facility] Comment on above: Performed By: #### P T, PTT #### [facility] [address] [place] [address] Dr. Idania Roldan URINE MICROSCOPIC ONLYon BACTERIA NONE SEEN Normal NONE SEEN [facility] Comment on above: Performed By: #### P T, PTT #### [facility] [address] [place] [address] Dr. Idania Roldan Bacteria identified Cx Nom (U) NOT INDICATED Normal [facility] Comment on above: Performed By: #### P T, PTT #### [facility] [address] [place] [address] Dr. Idania Roldan CAST NONE SEEN Normal NONE SEEN [facility] Comment on above: Performed By: #### P T, PTT #### [facility] [address] [address] [address] Idania Roldan Crystals LM Nom (Urine sed) NONE SEEN Normal NONE SEEN [facility] Comment on above: Performed By: #### P T, PTT #### [facility] [address] [place] [address] Dr. Idania Roldan Epithelial cells LM Ql (Urine sed) FEW Abnormal NONE SEEN /RARE [facility] Comment on above: Performed By: #### P T, PTT #### [facility] [address] [place] [address] Dr. Idania Roldan MUCOUS NONE SEEN Normal NONE SEEN [facility] Comment on above: Performed By: #### P T, PTT #### [facility] [address] [place] [address] Dr. Idania Roldan RBC 50-75 Abnormal 0-2 [facility] Comment on above: Performed By: #### P T, PTT #### [facility] [address] [place] [address] Dr. Idania Roldan WBC 0-2 Abnormal NONE SEEN [facility] Comment on above: Performed By: #### P T, PTT #### [facility] [address] [place] [address] Dr. Idania Roldan XR ABD FLAT UP_PA [...] RUSSELL DUFF Date: 2022-04-29 13:37 Normal [facility] US KIDNEYS BLADDERon 022 US KIDNEYS BLADDER [...] RUSSELL DUFF Date: 2022-04-16 18:24 Normal [facility] CT LOWER EXTREMITY WO CONTRA ST LEFTon 04-07-2022 CT LOWER EXTREMITY WO CONTRAST LEFT [facility] Department of Radiology [address] [place] [id number] Patient Name: ELVI MOORE : 1980 [...] arthroplasty. Electronically signed: Elvis Perez. Transcribed by: [id number], User Resident: Electronically Signed by: ELVIS PEREZ @ 04/12/2022 09:46 AM Normal [facility] Comment on above: Order Comment: , lef t knee C REACTIVE PROTEINon 022 CRP [Mass/Vol] 2.2 mg/L Normal 0.0-7.0 [facility] Comment on above: Performed By: #### 3 1791 #### [facility] [address] [place], [place] [id number] [place] [address] SEDIMENTATION RATEon 022 SED RATE 30 mm/hr High 0-20 [facility] Comment on above: Performed By: #### 5 6506 #### [id number] [place] [address] KNEE LEFT 1 OR 2 VWSon 02-12 KNEE LEFT 1 OR 2 VWS [facility] Department of Radiology [address] [place] [phone] Patient Name: ELVI MOORE : 1980 [...] report. Electronically signed: Sathya Christianson. Transcribed by: [email or web address], User Resident: Electronically Signed by: SATHYA CHRISTIANSON @ 02/13/2022 10:48 PM Normal [facility] Comment on above: Order Comment: LT KN EE REANNA Operative Reporton 2 Operative Report MR#: [id number] S [facility] Pt. Name: Elvi Moore Room #: 0C Discharge Date: Birthdate: 1980 OPERATIVE REPORT DATE OF SURGERY: 02/12/2022 SURGEON: Kevin Lane M.D. SEASONAL RETAIL MERCHANDISER: None. PREOPERATIVE DIAGNOSIS: Left total knee arthroplasty [...] Lane M.D. Date Trans: 02/12/2022 09:35 A/taylor SALVADOR_[id number] cc: Arleth Acharya M.D. [address], [facility] [address] Normal [facility] POC GLUCOSE LABon 02-12-2022 Glucose [Mass/Vol] 96 mg/dL Normal 70-100 [facility] Comment on above: Performed By: #### 8 5499 ####[facility], [place] [address] [place] [address] C REACTIVE PROTEINon 022 CRP [Mass/Vol] 1.7 mg/L Normal 0.0-7.0 [facility] Comment on above: Performed By: #### 6 1405 #### [facility] [address] [place] [address], [facility] SEDIMENTATION RATEon 022 SED RATE 18 mm/hr Normal 0-20 [facility] Comment on above: Performed By: #### 6 1405 #### [facility] [address] [place] [address], [facility] KNEE LEFT 3 VWSon 12-26-2021 KNEE LEFT 3 S [facility] Department of Radiology [address] [place], [place] [phone] Patient Name: ELVI MOORE : 1980 Sex: F Age: Race: White Pt. Location: Patient Status: Ordered Date: 12/26/2021 1:45:00 PM Completed Date: 12/26/2021 01:50 PM Requesting Provider: JORDEN BRODY Attending Provider: Report Copy To: Signs & Symptoms: Z47.1 Aftercare following joint replacement surgery I10 History: [place] Comments: , , , Ordering Provider - JORDEN BRODY LINE SUPPLY , Exam: KNEE LEFT 3 VWS KNEE [...] report. Electronically signed: Yvette Desai. Transcribed by: [email or web address], User Resident: CHRISTELLE ABDI Electronically Signed by: YVETTE DESAI @ 12/26/2021 04:27 PM I personally read this/these film(s) with this resident Normal The [facility] Comment on above: Order Comment: , , = ========= , Ordering Provider - JORDEN BRODY CNP , KNEE LEFT 3 Son 12-09-2021 KNEE LEFT 3 [facility] Department of Radiology [address] [place] [phone] Patient Name: BLODY, ELVI : 1980 Sex: F Age: Race: White Pt. Location: Patient Status: D Ordered Date: 12/09/2021 9:30:00 AM Completed Date: 12/09/2021 09:37 AM Requesting Provider: JORDEN BRODY Attending Provider: JORDEN BRODY Report Copy To: Signs & Symptoms: Z47.1 Aftercare following joint replacement surgery I10 History: [place] Comments: Exam: KNEE LEFT 3 S KNEE LEFT 3 [facility] HISTORY: Knee replacement, follow-up. COMPARISON: 10/30/2021. IMPRESSION: 1. Redemonstrated knee arthroplasty, no hardware complication or acute abnormality. Small to moderate joint effusion. 2. Improving soft tissue changes. Electronically signed: Ezio Roberts. Transcribed by: [email or web address], User Resident: Electronically Signed by: EZIO ROBERTS @ 12/10/2021 08:39 AM Normal [facility] Operative Reporton Operative Report MR#: [id number] S [facility] Pt. Name: Elvi Moore Room #: 0C Discharge Date: Birthdate: 1980 OPERATIVE REPORT DATE OF SURGERY: 10/30/2021 SURGEON: Kevin Lane M.D. SEASONAL RETAIL MERCHANDISER: 1. MD [place]. 2. LAVON Quinones. ANESTHESIA: [...] arthrotomy was closed itself with #2 interrupted gardox-ge-lftwh suture. The remainder of the incision was closed in a layered fashion. Sterile dressing was applied. At the conclusion of the case, all sponge and needle counts were correct. I was present for the critical portions of this case. Electronically Signed by: Kevin Lane M.D. 10/30/2021 07:[address] M.D. Date Dict: 10/30/2021/11:00 A/Kevin Lane M.D. Date Trans: 10/30/2021 12:34 P/mmo [id number] cc: Arleth Acharya M.D. [address], [facility] [address] Nasir Thacker, DO [address] [facility] [address] [facility] [address] Normal The [facility] POC GLUCOSE LABon 10-30-2021 Glucose [Mass/Vol] 88 mg/dL Normal 70-100 The [facility] Comment on above: Performed By: #### 8 5499 ####[address] PORTABLE KNEE LEFT 2 VWSon 0 10-30-2021 PORTABLE KNEE LEFT 2 VWS [facility] Department of Radiology [address] [place] [address] Patient Name: ELVI MOORE : [...] complication Electronically signed: Yvette Andrade. Transcribed by: [email or web address], User Resident: Electronically Signed by: YVETTE ANDRADE @ 10/30/2021 11:20 AM Normal [facility] Comment on above: Order Comment: Hardw are Evaluation, Postop PACU films for L knee s/p TKA. AP and lateral please *MRSA/MSSA DNA NASALon 10-07 *MRSA/MSSA DNA NASAL Clinical Report: (D) Specimen: NASAL SWAB Collected: 10/07/2021 10:51 Status: Final Last Updated: 10/07/2021 15:44 MSSA DNA (Final) Negative MRSA DNA (Final) Negative Normal [facility] Comment on above: Performed By: #### 3 1595 ####[facility] [place] [address], [facility] APTTon 10-07-2021 aPTT Coag (Bld) [Time] 32.2 s Normal 25.0-35.0 [facility] Comment on above: Result Comment: [...] PURPOSE. Performed By: #### 3 1791 #### [facility] [address] [place] [address], [facility] BASIC METABOLIC PANELon - Calcium [Mass/Vol] 9.2 mg/dL Normal 8.6-10.3 [facility] Comment on above: Performed By: #### 3 1791 #### [facility] [address] [place] [address], [place] Chloride [Moles/Vol] 106 mmol/L Normal 98-107 [facility] Comment on above: Performed By: #### 3 1791 #### [facility] [address] [place] [address], [place] CO2 [Moles/Vol] 28 mmol/L Normal 21-31 [facility] Comment on above: Performed By: #### 3 1791 #### [facility] [address] [place] [address], [place] Creatinine [Mass/Vol] 0.77 mg/dL Normal 0.60-1.20 [facility] Comment on above: Performed By: #### 3 1791 #### [facility] [address] [place] [address], [place] GFR/1.73 sq M.predicted among blacks MDRD (S/P/Bld) [Vol rate/Area] mL/min/{1.73_m2} Normal >60 [facility] Comment on above: Performed By: #### 3 1791 #### [facility] [address] [place] [address], [facility] GFR/1.73 sq M.predicted among non-blacks MDRD (S/P/Bld) [Vol rate/Area] mL/min/{1.73_m2} Normal >60 [facility] Comment on above: Performed By: #### 3 1791 #### [facility] [address] [place] [address], [facility] Glucose [Mass/Vol] 84 mg/dL Normal 70-100 [facility] Comment on above: Performed By: #### 3 1791 #### [facility] [address] [place] [address], [facility] Potassium [Moles/Vol] 4.4 mmol/L Normal 3.5-5.1 [facility] Comment on above: Performed By: #### 3 1791 #### [facility] [address] [place] [address], [facility] Sodium [Moles/Vol] 142 mmol/L Normal 136-145 [facility] Comment on above: Performed By: #### 3 1791 #### [facility] [address] [place] [address], [facility] Urea nitrogen [Mass/Vol] 12 mg/dL Normal 7-25 [facility] Comment on above: Performed By: #### 3 1791 #### [facility] [address] [place] [address], [facility] CBC W/DIFFon 10-07-2021 ABS IMM GRANS 0.0 10*3/uL Normal 0.0-0.2 [facility] Comment on above: Performed By: #### 6 1405 #### [facility] [address] [place] [address], [place] ABS NEUTROPHILS 4.7 10*3/uL Normal 1.6-7.6 [facility] Comment on above: Performed By: #### 6 1405 #### [facility] [address] [place] [address], [facility] Basophils (Bld) [#/Vol] 0.0 10*3/uL Normal 0.0-0.2 [facility] Comment on above: Performed By: #### 6 1405 #### [facility] [address] [place] [address], [facility] Basophils/100 WBC (Bld) 0.3 % Normal 0.0-1.0 [facility] Comment on above: Performed By: #### 6 1405 #### [facility] [address] [place] [address], [facility] Eosinophils (Bld) [#/Vol] 0.2 10*3/uL Normal 0.0-0.5 [facility] Comment on above: Performed By: #### 6 1405 #### [facility] [address] [place] [address], [facility] Eosinophils/100 WBC (Bld) 1.9 % Normal 0.0-6.0 [facility] Comment on above: Performed By: #### 6 1405 #### [facility] [address] [facility] [address], [facility] Erythrocyte distribution width (RBC) [Ratio] 14.0 % Normal 11.5-15.0 [facility] Comment on above: Performed By: #### 6 1405 #### [facility] [address] [place] [address], [facility] Hematocrit (Bld) [Volume fraction] 37.1 % Normal 36.0-45.0 [facility] Comment on above: Performed By: #### 6 1405 #### [facility] [address] [place] [address], [facility] Hemoglobin (Bld) [Mass/Vol] 11.3 g/dL Low 12.0-15.0 [facility] Comment on above: Performed By: #### 6 1405 #### [facility] [address] [place] [address], [facility] IMMATURE GRANS 0.1 % Normal 0.0-1.0 [facility] Comment on above: Performed By: #### 6 1405 #### [facility] [address] [place] [address], [facility] Lymphocytes (Bld) [#/Vol] 2.5 10*3/uL Normal 1.2-4.0 [facility] Comment on above: Performed By: #### 6 1405 #### [facility] [address] Lymphocytes/100 WBC (Bld) 31.6 % Normal 20.0-45.0 [facility] Comment on above: Performed By: #### 6 1405 #### [facility] [address] [place] [address], [facility] MCH (RBC) [Entitic mass] 25.5 pg Low 27.0-33.0 [facility] Comment on above: Performed By: #### 6 1405 #### [facility] [address] [place] [address], [facility] MCHC (RBC) [Mass/Vol] 30.5 g/dL Low 32.0-35.0 [facility] Comment on above: Performed By: #### 6 1405 #### [facility] [address] [place] [address], [facility] MCV (RBC) [Entitic vol] 83.7 fL Normal 82.0-98.0 [facility] Comment on above: Performed By: #### 6 1405 #### [facility] [address] [place] [address], [facility] Monocytes (Bld) [#/Vol] 0.5 10*3/uL Normal 0.1-1.0 [facility] Comment on above: Performed By: #### 6 1405 #### [facility] [address] MONOS 6.0 % Normal 5.0-12.0 [facility] Comment on above: Performed By: #### 6 1405 #### [facility] [address] [place] [address], [facility] Neutrophils/100 WBC (Bld) 60.1 % Normal 40.0-72.0 [facility] Comment on above: Performed By: #### 6 1405 #### [facility] [address] Nucleated RBC/100 WBC (Bld) [Ratio] 0 % Normal 0-0 [facility] Comment on above: Performed By: #### 6 1405 #### [facility] [address] PLAT CNT 233 10*3/uL Normal 150-400 [facility] Comment on above: Performed By: #### 6 1405 #### [facility] [address] RBC (Bld) [#/Vol] 4.43 10*6/uL Normal 3.80-5.00 [facility] Comment on above: Performed By: #### 6 1405 #### [facility] [address] [place] [address], [facility] WBC (Bld) [#/Vol] 7.85 10*3/uL Normal 4.00-10.60 [facility] Comment on above: Performed By: #### 6 1405 #### [facility] [address] PROTHROMBIN TIMEon 1 INR Coag (PPP) [Relative time] 0.94 {INR} Normal 0.91-1.16 [facility] Comment on above: Result Comment: [...] 1995;108:[id number]-246S. Performed By: #### 3 1790 #### [facility] [address] [place] [address], [facility] PT Coag (PPP) [Time] 12.6 s Normal 12.3-14.8 [facility] Comment on above: Result Comment: ALL RESULTS MUST BE INTERPRETED WITH RESPECT TO BLOOD DRAWING ARTIFACT OR DILUTION ERROR OF ANTICOAGULANT AT THE TIME OF SAMPLING. Performed By: #### 3 1731 #### [facility] [address] [place] [address], [facility] TYPE AND SCREENon 10-07-2021 ABO INTERPRETATION O Normal [facility] Comment on above: Performed By: #### 3 1 #### [facility] [address] [place] [id number], [facility] RH INTERPRETATION Positive Normal [facility] Comment on above: Performed By: #### 3 1790 #### [facility] [address] [place] [address], [facility] *MRSA/MSSA DNA NASALon 08-12 *MRSA/MSSA DNA NASAL Clinical Report: (D) Specimen: NASAL SWAB Collected: 08/12/2021 10:14 Status: Final Last Updated: 08/12/2021 18:58 MSSA DNA (Final) Negative MRSA DNA (Final) Negative Normal [facility] Comment on above: Performed By: #### 6 1405 #### [facility] [address] [place] [address], [facility] CBC W/DIFFon 08-12-2021 ABS IMM GRANS 0.0 10*3/uL Normal 0.0-0.2 [facility] Comment on above: Performed By: #### 6 1405 #### [facility] [address] [place] [address], [facility] ABS NEUTROPHILS 3.7 10*3/uL Normal 1.6-7.6 [facility] Comment on above: Performed By: #### 6 1405 #### [facility] [address] Basophils (Bld) [#/Vol] 0.0 10*3/uL Normal 0.0-0.2 [facility] Comment on above: Performed By: #### 6 1405 #### [facility] [address] [place] [address], [facility] Basophils/100 WBC (Bld) 0.3 % Normal 0.0-1.0 [facility] Comment on above: Performed By: #### 6 1405 #### [facility] [address] [place] [address], [facility] Eosinophils (Bld) [#/Vol] 0.2 10*3/uL Normal 0.0-0.5 [facility] Comment on above: Performed By: #### 6 1405 #### [facility] [address] [place] [address], [facility] Eosinophils/100 WBC (Bld) 2.9 % Normal 0.0-6.0 [facility] Comment on above: Performed By: #### 6 1405 #### [facility] [address] Erythrocyte distribution width (RBC) [Ratio] 14.0 % Normal 11.5-15.0 [facility] Comment on above: Performed By: #### 6 1405 #### [facility] [address] [facility]. [address] Hematocrit (Bld) [Volume fraction] 37.0 % Normal 36.0-45.0 [facility] Comment on above: Performed By: #### 6 1405 #### [facility] [address] Hemoglobin (Bld) [Mass/Vol] 11.6 g/dL Low 12.0-15.0 [facility] Comment on above: Performed By: #### 6 1405 #### [facility] [address] IMMATURE GRANS 0.3 % Normal 0.0-1.0 [facility] Comment on above: Performed By: #### 6 1405 #### [facility] [address] Lymphocytes (Bld) [#/Vol] 2.1 10*3/uL Normal 1.2-4.0 [facility] Comment on above: Performed By: #### 6 1405 #### [facility] [address] Lymphocytes/100 WBC (Bld) 32.5 % Normal 20.0-45.0 [facility] Comment on above: Performed By: #### 6 1405 #### [facility] [address] MCH (RBC) [Entitic mass] 26.8 pg Low 27.0-33.0 [facility] Comment on above: Performed By: #### 6 1405 #### [facility] [address] [facility]. [address] MCHC (RBC) [Mass/Vol] 31.4 g/dL Low 32.0-35.0 [facility] Comment on above: Performed By: #### 6 1405 #### [facility] [address] [facility] [place] [address], [facility] MCV (RBC) [Entitic vol] 85.5 fL Normal 82.0-98.0 [facility] Comment on above: Performed By: #### 6 1405 #### [facility] [address] [place] [address], [facility] Monocytes (Bld) [#/Vol] 0.5 10*3/uL Normal 0.1-1.0 [facility] Comment on above: Performed By: #### 6 1405 #### [facility] [address] [facility]. [address] MONOS 6.9 % Normal 5.0-12.0 [facility] Comment on above: Performed By: #### 6 1405 #### [facility] [address] [place] [address], [facility] Neutrophils/100 WBC (Bld) 57.1 % Normal 40.0-72.0 [facility] Comment on above: Performed By: #### 6 1405 #### [facility] [address] [facility]. [address] Nucleated RBC/100 WBC (Bld) [Ratio] 0 % Normal 0-0 [facility] Comment on above: Performed By: #### 6 1405 #### [facility] [address] [place] [address], [facility] PLAT CNT 223 10*3/uL Normal 150-400 [facility] Comment on above: Performed By: #### 6 1405 #### [facility] [address] [place] [address], [facility] RBC (Bld) [#/Vol] 4.33 10*6/uL Normal 3.80-5.00 [facility] Comment on above: Performed By: #### 6 1405 #### [facility] [address] [place] [address], [facility] WBC (Bld) [#/Vol] 6.55 10*3/uL Normal 4.00-10.60 [facility] Comment on above: Performed By: #### 6 1405 #### [facility] [address] [facility] [place] [address], [facility] HEMOGLOBIN A1Con 08-12-2021 Glucose [Moles/Vol] 103 mmol/L Normal [facility] Comment on above: Performed By: #### 3 1791 #### [facility] [address] [place] [address], [facility] HbA1c (Bld) [Mass fraction] 5.2 % Normal 4.0-6.0 [facility] Comment on above: Performed By: #### 3 1791 #### [facility] [address] [place] [address], [facility] KNEE LEFT 3 VWSon 08-12-2021 KNEE LEFT 3 [facility] Department of Radiology [address] [place] [id number] Patient Name: ELVI MOORE : 1980 [...] report. Electronically signed: Jah Juarez. Transcribed by: [email or web address], User Resident: JODY KEITH Electronically Signed by: JAH JUAREZ @ 08/12/2021 03:46 PM I personally read this/these film(s) with this resident Normal [facility] Comment on above: Order Comment: evalu ate Amylaseon 10-09-2018 Amylase enzyme act/vol 56 U/L Normal 28-100 [facility] Comment on above: Performed By: #### L IP, CDP, CP, YVETTE ####[address] [place] [address] CBC with Diffon 10-09-2018 Abs. Basophil <0.03 Normal 0.00-0.20 [facility] Comment on above: Performed By: #### L IP, CDP, CP, YVETTE ####[address] [place] [address] Abs.Imm.Granulocyte <0.03 Normal 0.00-0.30 [facility] Comment on above: Performed By: #### L IP, CDP, CP, YVETTE ####[address] [place] [address] Abs.Neutrophil (Seg) 3.08 k/uL Normal 1.50-8.10 [facility] Comment on above: Performed By: #### L IP, CDP, CP, YVETTE ####[address] [place] [address] Basophils/100 WBC Auto (Bld) 0 % Normal 0-2 [facility] Comment on above: Performed By: #### L IP, CDP, CP, YVETTE ####[address] [place] [address] Eosinophils Auto #/vol (Bld) 0.16 10*3/uL Normal 0.00-0.44 [facility] Comment on above: Performed By: #### L IP, CDP, CP, YVETTE ####[address] [place] [address] Eosinophils/100 WBC Auto (Bld) 3 % Normal 1-4 [facility] Comment on above: Performed By: #### L IP, CDP, CP, YVETTE ####[address] [place] [address] Erythrocyte distribution width Auto Ratio (RBC) 13.1 % Normal 11.8-14.4 [facility] Comment on above: Performed By: #### L IP, CDP, CP, YVETTE ####[address] [place] [address] Hematocrit Auto Volume Fraction (Bld) 39.4 % Normal 36.3-47.1 [facility] Comment on above: Performed By: #### L IP, CDP, CP, YVETTE ####[address] [place] [address] Hemoglobin mass conc (Bld) 13.0 g/dL Normal 11.9-15.1 [facility] Comment on above: Performed By: #### L IP, CDP, CP, YVETTE ####[address] , [facility] Immature granulocytes #/vol (Bld) 0 % Normal 0 [facility] Comment on above: Performed By: #### L IP, CDP, CP, YVETTE ####[address] , [place] [address] Lymphocytes Auto #/vol (Bld) 2.83 10*3/uL Normal 1.10-3.70 [facility] Comment on above: Performed By: #### L IP, CDP, CP, YVETTE ####[address] , [place] [address] Lymphocytes/100 WBC Auto (Bld) 44 % High 24-43 [facility] Comment on above: Performed By: #### L IP, CDP, CP, YVETTE ####[address] , [place] [address] MCH Auto Entitic mass (RBC) 29.3 pg Normal 25.2-33.5 [facility] Comment on above: Performed By: #### L IP, CDP, CP, YVETTE ####[address] , [place] [address] MCHC Auto mass conc (RBC) 33.0 g/dL Normal 28.4-34.8 [facility] Comment on above: Performed By: #### L IP, CDP, CP, YVETTE ####[address] , [place] [address] MCV Auto Entitic volume (RBC) 88.7 fL Normal 82.6-102.9 [facility] Comment on above: Performed By: #### L IP, CDP, CP, YVETTE ####[address] [place] [address] Monocytes Auto #/vol (Bld) 0.38 10*3/uL Normal 0.10-1.20 [facility] Comment on above: Performed By: #### L IP, CDP, CP, YVETTE ####[address] , [facility] Monocytes/100 WBC Auto (Bld) 6 % Normal 3-12 [facility] Comment on above: Performed By: #### L IP, CDP, CP, YVETTE ####[address] , [place] [address] Neutrophil (Seg) 47 % Normal 36-65 [facility] Comment on above: Performed By: #### L IP, CDP, CP, YVETTE ####[address] , [place] [address] NRBC Automated 0.0 per 100 WBC Normal 0.0 [facility] Comment on above: Performed By: #### L IP, CDP, CP, YVETTE ####[address] , [place] [address] Platelet mean volume Auto Entitic volume (Bld) 9.4 fL Normal 8.1-13.5 [facility] Comment on above: Performed By: #### L IP, CDP, CP, YVTETE ####[address] , [place] [address] Platelets Auto #/vol (Bld) 211 10*3/uL Normal 138-453 [facility] Comment on above: Performed By: #### L IP, CDP, CP, YVETTE ####[address] , [place] [address] RBC Auto #/vol (Bld) 4.44 10*6/uL Normal 3.95-5.11 [facility] Comment on above: Performed By: #### L IP, CDP, CP, YVETTE ####[address] [place] [address] WBC Auto #/vol (Bld) 6.5 10*3/uL Normal 3.5-11.3 [facility] Comment on above: Performed By: #### L IP, CDP, CP, YVETTE ####[address] [place] [address] Auto Diff Performed NOT REPORTED Normal [facility] Comment on above: Performed By: #### L IP, CDP, CP, YVETTE ####[address] [place] [address] Platelets Auto #/vol (Bld) NOT REPORTED Normal [facility] Comment on above: Performed By: #### L IP, CDP, CP, YVETTE ####[address] [place] [address] RBC morphology finding Nom (Bld) NOT REPORTED Normal [facility] Comment on above: Performed By: #### L IP, CDP, CP, YVETTE ####[address] [place] [address] WBC Morphology NOT REPORTED Normal [facility] Comment on above: Performed By: #### L IP, CDP, CP, YVETTE ####[address] [place] [address] CT ABDOMEN PELVIS WO CONTRAS Ton 10-09-2018 [...] DOSigned by:Tl Diaz, DO10/09/18Final result Normal [facility] Comp Metabolic Profon 2017 (cont.) Normal [facility] Comment on above: Result Comment: Aver age GFR for 30-39 years old: 107 mL/min/1.73sq mChronic Kidney Disease: <60 mL/min/1.73sq mKidney failure: <15 mL/min/1.73sq meGFR calculated using average adult body mass. Additional eGFR calculator available at:http://www.Right90/multiple_crcl_2012.htm Performed By: #### L IP, CDP, CP, YVETTE ####[address] [place] [address] Albumin mass conc 4.2 g/dL Normal 3.5-5.2 [facility] Comment on above: Performed By: #### L IP, CDP, CP, YVETTE ####[address] [place] [address] Albumin/Globulin mass ratio 1.4 {ratio} Normal 1.0-2.5 [facility] Comment on above: Performed By: #### L IP, CDP, CP, YVETTE ####[address] [place] [address] Alkaline Phos 75 U/L Normal 35-104 [facility] Comment on above: Performed By: #### L IP, CDP, CP, YVETTE ####[address] [place] [address] ALT enzyme act/vol 10 U/L Normal 5-33 [facility] Comment on above: Performed By: #### L IP, CDP, CP, YVETTE ####[address] [place] [address] Anion gap 3 molar conc 9 mmol/L Normal 9-17 [facility] Comment on above: Performed By: #### L IP, CDP, CP, YVETTE ####[address] [place] [address] AST enzyme act/vol 13 U/L Normal <32 [facility] Comment on above: Performed By: #### L IP, CDP, CP, YVETTE ####[address] [place] [address] Bilirubin Ql (U) 0.27 mg/dL Low 0.3-1.2 [facility] Comment on above: Performed By: #### L IP, CDP, CP, YVETTE ####[address] [place] [address] BUN/CRE Ratio 17 Normal 9-20 [facility] Comment on above: Performed By: #### L IP, CDP, CP, YVETTE ####[address] [place] [address] Calcium mass conc 8.9 mg/dL Normal 8.6-10.4 [facility] Comment on above: Performed By: #### L IP, CDP, CP, YVETTE ####[address] [place] [address] Chloride molar conc 103 mmol/L Normal 98-107 [facility] Comment on above: Performed By: #### L IP, CDP, CP, YVETTE ####[address] [place] [address] CO2 molar conc 27 mmol/L Normal 20-31 [facility] Comment on above: Performed By: #### L IP, CDP, CP, YVETTE ####[address] [place] [address] Creatinine mass conc 0.60 mg/dL Normal 0.50-0.90 [facility] Comment on above: Performed By: #### L IP, CDP, CP, YVETTE ####[address] [place] [address] GFR, Amer >60 Normal >60 [facility] Comment on above: Performed By: #### L IP, CDP, CP, YVETTE ####[address] [place] [address] GFR,non Amer >60 Normal >60 [facility] Comment on above: Performed By: #### L IP, CDP, CP, YVETTE ####[address] [place] [address] Glucose mass conc 89 mg/dL Normal 70-99 [facility] Comment on above: Performed By: #### L IP, CDP, CP, YVETTE ####[address] [place] [address] Potassium molar conc 4.1 mmol/L Normal 3.7-5.3 [facility] Comment on above: Performed By: #### L IP, CDP, CP, YVETTE ####[address] [place] [address] Protein mass conc 7.2 g/dL Normal 6.4-8.3 [facility] Comment on above: Performed By: #### L IP, CDP, CP, YVETTE ####[address] [place] [address] Sodium molar conc 139 mmol/L Normal 135-144 [facility] Comment on above: Performed By: #### L IP, CDP, CP, YVETTE ####[address] [place] [address] Staging: Normal [facility] Comment on above: Result Comment: Stag e 1: Some kidney damage normal GFRStage 2: Mild kidney damage GFR 60-89Stage 3: Moderate kidney damage GFR 30-59Stage 4: Severe kidney damage GFR 15-29Stage 5: Severe kidney damage GFR <15ESRD - chronic treatment by dialysis or transplant Performed By: #### L IP, CDP, CP, YVETTE ####[address] [place] [address] Urea nitrogen mass conc 10 mg/dL Normal 6-20 [facility] Comment on above: Performed By: #### L IP, CDP, CP, YVETTE ####[address] [place] [address] Cult,Urineon 10-09-2018 Cult,Urine Specimen Description .CLEAN CATCH URINE Special Requests NOT REPORTED Culture STREPTOCOCCI, BETA HEMOLYTIC GROUP B 10 to 50,000 CFU/ML Report Status FINAL 10/09/2018 Normal [facility] Comment on above: Performed By: #### C DP ####[facility] [place], [place] [id number] #### BMP, HCG ####[address] [place] [address] Lipaseon 10-09-2018 Lipase enzyme act/vol 63 U/L High 13-60 [facility] Comment on above: Performed By: #### L IP, CDP, CP, YVETTE ####[address] [place] [address] UA w/Reflex Cultureon 2017 Acetoacetic Acid,Ur Negative Normal NEG [facility] Comment on above: Performed By: #### U MICAO, UAX ####[address] [place] [address] Bilirubin, SemiQt,Ur Negative Normal NEG [facility] Comment on above: Performed By: #### U MICAO, UAX ####[address] [place] [address] Color YELLOW Normal YEL [facility] Comment on above: Performed By: #### U MICAO, UAX ####[address] [place] [address] Glucose,Semi-qnt,Ur Negative Normal NEG [facility] Comment on above: Performed By: #### U MICAO, UAX ####[address] [place] [address] Hemoglobin, Ur 3+ Abnormal NEG [facility] Comment on above: Performed By: #### U MICAO, UAX ####[address] [place] [address] Leuckocyte Esterase SMALL Abnormal NEG [facility] Comment on above: Performed By: #### U MICAO, UAX ####[address] [place] [address] Nitrite,Ur Negative Normal NEG [facility] Comment on above: Performed By: #### U MICAO, UAX ####[address] [place] [address] PH,Ur 7.5 Normal 5.0-9.0 [facility] Comment on above: Performed By: #### U MICAO, UAX ####[address] [place] [address] Protein, Semi-qnt,Ur Negative Normal NEG [facility] Comment on above: Performed By: #### U MICAO, UAX ####[address] [place] [address] Spec. [place],Ur 1.010 Normal 1.010-1.020 [facility] Comment on above: Performed By: #### U MICAO, UAX ####[address] [place] [address] Turbidity CLOUDY Abnormal CLEAR [facility] Comment on above: Performed By: #### U MICAO, UAX ####[address] [place] [address] Urobilinogen,Ur Normal Normal NORM [facility] Comment on above: Performed By: #### U MICAO, UAX ####[address] [place] [address] Comment NOT REPORTED Normal [facility] Comment on above: Performed By: #### U MICAO, UAX ####[address] [place] [address] Urinalysis,Microon 8 ----- Normal [facility] Comment on above: Performed By: #### U MICAO, UAX ####[address] [place] [address] Amorphous Sediment 2+ Abnormal NONE [facility] Comment on above: Performed By: #### U MICAO, UAX ####[address] [place] [address] Epithelial cells 2 TO 5 Normal 0-25 [facility] Comment on above: Performed By: #### U MICAO, UAX ####[address] [place] [address] RBC Test strip #/vol (U) 5 TO 10 Normal 0-2 [facility] Comment on above: Performed By: #### U MICAO, UAX ####[address] [place] [address] Urine WBC's 0 TO 2 Normal 0-5 [facility] Comment on above: Performed By: #### U MICAO, UAX ####[address] [place] [address] Bacteria NOT REPORTED Normal NONE [facility] Comment on above: Performed By: #### U MICAO, UAX ####[address] [place] [address] Casts NOT REPORTED Normal [facility] Comment on above: Performed By: #### U MICAO, UAX ####[address] [place] [address] Crystals NOT REPORTED Normal NONE [facility] Comment on above: Performed By: #### U MICAO, UAX ####[address] [place] [address] Epithelial, Renal NOT REPORTED Normal 0 [facility] Comment on above: Performed By: #### U MICAO, UAX ####[address] [place] [address] Mucus Strands NOT REPORTED Normal NONE [facility] Comment on above: Performed By: #### U MICAO, UAX ####[address] [place] [address] Other Observations NOT REPORTED Normal [facility] Comment on above: Performed By: #### U MICAO, UAX ####[address] [place] [address] Trichomonas NOT REPORTED Normal NONE [facility] Comment on above: Performed By: #### U MICAO, UAX ####[address] [place] [address] Yeast NOT REPORTED Normal NONE [facility] Comment on above: Performed By: #### U MICAO, UAX ####[address] [place] [address] Basic Metabolic Profon 06-13 (cont.) Normal [facility] Comment on above: Result Comment: Aver age GFR for 30-39 years old: 107 mL/min/1.73sq mChronic Kidney Disease: <60 mL/min/1.73sq mKidney failure: <15 mL/min/1.73sq meGFR calculated using average adult body mass. Additional eGFR calculator available at:http://www.Techcafe.io.Reputation.com/multiple_crcl_2012.htm Performed By: #### B MP, CDP ####[address] [place] [address] Anion gap 3 molar conc 12 mmol/L Normal 9-17 [facility] Comment on above: Performed By: #### B MP, CDP ####[address] [place] [address] BUN/CRE Ratio 17 Normal 9-20 [facility] Comment on above: Performed By: #### B MP, CDP ####[address] [place] [address] Calcium mass conc 9.1 mg/dL Normal 8.6-10.4 [facility] Comment on above: Performed By: #### B MP, CDP ####[address] [place] [address] Chloride molar conc 103 mmol/L Normal 98-107 [facility] Comment on above: Performed By: #### B MP, CDP ####[address] [place] [address] CO2 molar conc 26 mmol/L Normal 20-31 [facility] Comment on above: Performed By: #### B MP, CDP ####[address] [place] [address] Creatinine mass conc 0.72 mg/dL Normal 0.50-0.90 [facility] Comment on above: Performed By: #### B MP, CDP ####[address] [place] [address] GFR, Amer >60 Normal >60 [facility] Comment on above: Performed By: #### B MP, CDP ####[address] [place] [address] GFR,non Amer >60 Normal >60 [facility] Comment on above: Performed By: #### B MP, CDP ####[address] [place] [address] Glucose mass conc 98 mg/dL Normal 70-99 [facility] Comment on above: Performed By: #### B MP, CDP ####[address] [place] [address] Potassium molar conc 3.7 mmol/L Normal 3.7-5.3 [facility] Comment on above: Performed By: #### B MP, CDP ####[address] [place] [address] Sodium molar conc 141 mmol/L Normal 135-144 [facility] Comment on above: Performed By: #### B RHIANNA, CDP ####[address] [place] [address] Staging: Normal [facility] Comment on above: Result Comment: Stag e 1: Some kidney damage normal GFRStage 2: Mild kidney damage GFR 60-89Stage 3: Moderate kidney damage GFR 30-59Stage 4: Severe kidney damage GFR 15-29Stage 5: Severe kidney damage GFR <15ESRD - chronic treatment by dialysis or transplant Performed By: #### B RHIANNA, CDP ####[address] [place] [address] Urea nitrogen mass conc 12 mg/dL Normal 6-20 [facility] Comment on above: Performed By: #### B MP, CDP ####[address] [place] [address] CBC with Diffon 06-13-2018 Abs. Basophil <0.03 Normal 0.00-0.20 [facility] Comment on above: Performed By: #### B MP, CDP ####[address] [place] [address] Abs.Imm.Granulocyte <0.03 Normal 0.00-0.30 [facility] Comment on above: Performed By: #### B MP, CDP ####[address] [place] [address] Abs.Neutrophil (Seg) 4.75 k/uL Normal 1.50-8.10 [facility] Comment on above: Performed By: #### B MP, CDP ####[address] [place] [address] Basophils/100 WBC Auto (Bld) 0 % Normal 0-2 [facility] Comment on above: Performed By: #### B MP, CDP ####[address] [place] [address] Eosinophils Auto #/vol (Bld) 0.23 10*3/uL Normal 0.00-0.44 [facility] Comment on above: Performed By: #### B MP, CDP ####[address] [place] [address] Eosinophils/100 WBC Auto (Bld) 2 % Normal 1-4 [facility] Comment on above: Performed By: #### B MP, CDP ####[address] [place] [address] Erythrocyte distribution width Auto Ratio (RBC) 12.9 % Normal 11.8-14.4 [facility] Comment on above: Performed By: #### B MP, CDP ####[address] [place] [address] Hematocrit Auto Volume Fraction (Bld) 38.9 % Normal 36.3-47.1 [facility] Comment on above: Performed By: #### B MP, CDP ####[address] [place] [address] Hemoglobin mass conc (Bld) 12.6 g/dL Normal 11.9-15.1 [facility] Comment on above: Performed By: #### B MP, CDP ####[address] [place] [address] Immature granulocytes #/vol (Bld) 0 % Normal 0 [facility] Comment on above: Performed By: #### B MP, CDP ####[address] [place] [address] Lymphocytes Auto #/vol (Bld) 3.99 10*3/uL High 1.10-3.70 [facility] Comment on above: Performed By: #### B MP, CDP ####[address] [place] [address] Lymphocytes/100 WBC Auto (Bld) 42 % Normal 24-43 [facility] Comment on above: Performed By: #### B MP, CDP ####[address] [place] [address] MCH Auto Entitic mass (RBC) 29.4 pg Normal 25.2-33.5 [facility] Comment on above: Performed By: #### B MP, CDP ####[address] [place] [address] MCHC Auto mass conc (RBC) 32.4 g/dL Normal 28.4-34.8 [facility] Comment on above: Performed By: #### B MP, CDP ####[address] [place] [address] MCV Auto Entitic volume (RBC) 90.7 fL Normal 82.6-102.9 [facility] Comment on above: Performed By: #### B MP, CDP ####[address] [place] [address] Monocytes Auto #/vol (Bld) 0.49 10*3/uL Normal 0.10-1.20 [facility] Comment on above: Performed By: #### B MP, CDP ####[address] [place] [address] Monocytes/100 WBC Auto (Bld) 5 % Normal 3-12 [facility] Comment on above: Performed By: #### B MP, CDP ####[address] [place] [address] Neutrophil (Seg) 51 % Normal 36-65 [facility] Comment on above: Performed By: #### B MP, CDP ####[address] [place] [address] NRBC Automated 0.0 per 100 WBC Normal 0.0 [facility] Comment on above: Performed By: #### B MP, CDP ####[address] [place] [address] Platelet mean volume Auto Entitic volume (Bld) 9.6 fL Normal 8.1-13.5 [facility] Comment on above: Performed By: #### B MP, CDP ####[address] [place] [address] Platelets Auto #/vol (Bld) 224 10*3/uL Normal 138-453 [facility] Comment on above: Performed By: #### B MP, CDP ####[address] [place] [address] RBC Auto #/vol (Bld) 4.29 10*6/uL Normal 3.95-5.11 [facility] Comment on above: Performed By: #### B MP, CDP ####[address] [place] [address] WBC Auto #/vol (Bld) 9.5 10*3/uL Normal 3.5-11.3 [facility] Comment on above: Performed By: #### B MP, CDP ####[address] [place] [address] Auto Diff Performed NOT REPORTED Normal [facility] Comment on above: Performed By: #### B MP, CDP ####[address] [place] [address] Platelets Auto #/vol (Bld) NOT REPORTED Normal [facility] Comment on above: Performed By: #### B MP, CDP ####[address] , [place] [address] RBC morphology finding Nom (Bld) NOT REPORTED Normal [facility] Comment on above: Performed By: #### B MP, CDP ####[facility] [place] , [place] [id number] WBC Morphology NOT REPORTED Normal [facility] Comment on above: Performed By: #### B MP, CDP ####[address] , [place] [address] CT ABDOMEN PELVIS WO CONTRAS Ton 06-13-2018 [...] by:PAULINE Priceigned by:Aric Landeros MD/3/18Final result Normal [facility] Urinalysis w/ Microon 2017 ----- Normal [facility] Comment on above: Performed By: #### U AMIC ####[address] [place] [address] Acetoacetic Acid,Ur Negative Normal NEG [facility] Comment on above: Performed By: #### U AMIC ####[address] [place] [address] Bacteria 1+ Abnormal NONE [facility] Comment on above: Performed By: #### U AMIC ####[address] [place] [address] Bilirubin, SemiQt,Ur Negative Normal NEG [facility] Comment on above: Performed By: #### U AMIC ####[address] [place] [address] Color YELLOW Normal YEL [facility] Comment on above: Performed By: #### U AMIC ####[address] [place] [address] Epithelial cells 0 TO 2 Normal 0-25 [facility] Comment on above: Performed By: #### U AMIC ####[address] [place] [address] Glucose,Semi-qnt,Ur Negative Normal [facility] Comment on above: Performed By: #### U AMIC ####[address] [place] [address] Hemoglobin, Ur 3+ Abnormal NEG [facility] Comment on above: Performed By: #### U AMIC ####[address] [place] [address] Leuckocyte Esterase TRACE Abnormal NEG [facility] Comment on above: Performed By: #### U AMIC ####[address] [place] [address] Nitrite,Ur Negative Normal NEG [facility] Comment on above: Performed By: #### U AMIC ####[address] [place] [address] PH,Ur 6.0 Normal 5.0-9.0 [facility] Comment on above: Performed By: #### U AMIC ####[address] [place] [address] Protein mass conc Negative Normal NEG [facility] Comment on above: Performed By: #### U AMIC ####[address] [place] [address] RBC Test strip #/vol (U) 50 TO 100 Normal 0-2 [facility] Comment on above: Performed By: #### U AMIC ####[address] [place] [address] Spec. [place],Ur 1.025 High 1.010-1.020 [facility] Comment on above: Performed By: #### U AMIC ####[address] [place] [address] Turbidity CLEAR Normal CLEAR [facility] Comment on above: Performed By: #### U AMIC ####[address] [place] [address] Urine WBC's 0 TO 2 Normal 0-5 [facility] Comment on above: Performed By: #### U AMIC ####[address] [place] [address] Urobilinogen,Ur Normal Normal NORM [facility] Comment on above: Performed By: #### U AMIC ####[address] [place] [address] Amorphous Sediment NOT REPORTED Normal NONE [facility] Comment on above: Performed By: #### U AMIC ####[address] [place] [address] Casts NOT REPORTED Normal [facility] Comment on above: Performed By: #### U AMIC ####[address] [place] [address] Comment NOT REPORTED Normal [facility] Comment on above: Performed By: #### U AMIC ####[address] [place] [address] Crystals NOT REPORTED Normal NONE [facility] Comment on above: Performed By: #### U AMIC ####[address] [place] [address] Epithelial, Renal NOT REPORTED Normal 0 [facility] Comment on above: Performed By: #### U AMIC ####[address] [place] [address] Mucus Strands NOT REPORTED Normal NONE [facility] Comment on above: Performed By: #### U AMIC ####[address] [place] [address] Other Observations NOT REPORTED Normal NREQ [facility] Comment on above: Performed By: #### U AMIC ####[address] [place] [address] Trichomonas NOT REPORTED Normal NONE [facility] Comment on above: Performed By: #### U AMIC ####[address] [place] [address] Yeast NOT REPORTED Normal NONE [facility] Comment on above: Performed By: #### U AMIC ####[address] [place] [address] APTTon 02-25-2018 aPTT Coag time (Bld) 32.2 s Normal 23.2-34.4 [facility] Comment on above: Result Comment: Perf ormed at [address] [place] [address] Performed By: #### P TT, PT ####[address] [place] [address] Basic Metabolic Profon 02-25 (cont.) Normal [facility] Comment on above: Result Comment: Aver age GFR for 30-39 years old: 107 mL/min/1.73sq mChronic Kidney Disease: <60 mL/min/1.73sq mKidney failure: <15 mL/min/1.73sq meGFR calculated using average adult body mass. Additional eGFR calculator available at:http://www.Right90/multiple_crcl_2012.htm Performed By: #### C DP ####[address] [address] #### BMP, HCG ####[address] [place] [address] Anion gap 3 molar conc 12 mmol/L Normal 9-17 [facility] Comment on above: Performed By: #### C DP ####[address] [address] #### BMP, HCG ####[address] [place] [address] BUN/CRE Ratio 20 Normal 9-20 [facility] Comment on above: Performed By: #### C DP ####[address] [address] #### BMP, HCG ####[address] [place] [address] Calcium mass conc 9.4 mg/dL Normal 8.6-10.4 [facility] Comment on above: Performed By: #### C DP ####[address] [address] #### BMP, HCG ####[address] [place] [address] Chloride molar conc 101 mmol/L Normal 98-107 [facility] Comment on above: Performed By: #### C DP ####[address] [address] #### BMP, HCG ####[address] [place] [address] CO2 molar conc 28 mmol/L Normal 20-31 [facility] Comment on above: Performed By: #### C DP ####[address] [address] #### BMP, HCG ####[address] [place] [address] Creatinine mass conc 0.59 mg/dL Normal 0.50-0.90 [facility] Comment on above: Performed By: #### C DP ####[address] [address] #### BMP, HCG ####[address] [place] [address] GFR, Amer >60 Normal >60 [facility] Comment on above: Performed By: #### C DP ####[address] [address] #### BMP, HCG ####[address] [place] [address] GFR,non Amer >60 Normal >60 [facility] Comment on above: Performed By: #### C DP ####[address] [address] #### BMP, HCG ####[address] [place] [address] Glucose mass conc 119 mg/dL High 70-99 [facility] Comment on above: Performed By: #### C DP ####[address] [address] #### BMP, HCG ####[address] [place] [address] Potassium molar conc 3.7 mmol/L Normal 3.7-5.3 [facility] Comment on above: Performed By: #### C DP ####[address] [address] #### BMP, HCG ####[address] [place] [address] Sodium molar conc 141 mmol/L Normal 135-144 [facility] Comment on above: Performed By: #### C DP ####[address] [address] #### BMP, HCG ####[address] [place] [address] Staging: Normal [facility] Comment on above: Result Comment: Stag e 1: Some kidney damage normal GFRStage 2: Mild kidney damage GFR 60-89Stage 3: Moderate kidney damage GFR 30-59Stage 4: Severe kidney damage GFR 15-29Stage 5: Severe kidney damage GFR <15ESRD - chronic treatment by dialysis or transplantPerformed at [address] [place] [address] Performed By: #### C DP ####[address] [address] #### BMP, HCG ####[address] [place] [address] Urea nitrogen mass conc 12 mg/dL Normal 6-20 [facility] Comment on above: Performed By: #### C DP ####[address] [address] #### BMP, HCG ####[address] [place] [address] CBC with Diffon 05-18-2018 Abs. Basophil 0.03 k/uL Normal 0.00-0.20 [facility] Comment on above: Performed By: #### C DP ####[address] [address] #### BMP, HCG ####[address] [place] [address] Abs.Imm.Granulocyte 0.03 k/uL Normal 0.00-0.30 [facility] Comment on above: Result Comment: Perf ormed at [address] [address] Performed By: #### C DP ####[address] [address] #### BMP, HCG ####[address] [place] [address] Abs.Neutrophil (Seg) 5.34 k/uL Normal 1.50-8.10 [facility] Comment on above: Performed By: #### C DP ####[address] [address] #### BMP, HCG ####[address] [place] [address] Basophils/100 WBC Auto (Bld) 0 % Normal 0-2 [facility] Comment on above: Performed By: #### C DP ####[address] [address] #### BMP, HCG ####[address] [place] [address] Eosinophils Auto #/vol (Bld) 0.21 10*3/uL Normal 0.00-0.44 [facility] Comment on above: Performed By: #### C DP ####[address] [address] #### BMP, HCG ####[address] [place] [address] Eosinophils/100 WBC Auto (Bld) 2 % Normal 1-4 [facility] Comment on above: Performed By: #### C DP ####[address] [address] #### BMP, HCG ####[address] [place] [address] Erythrocyte distribution width Auto Ratio (RBC) 12.3 % Normal 11.8-14.4 [facility] Comment on above: Performed By: #### C DP ####[address] [address] #### BMP, HCG ####[address] [place] [address] Hematocrit Auto Volume Fraction (Bld) 41.4 % Normal 36.3-47.1 [facility] Comment on above: Performed By: #### C DP ####[address] [address] #### BMP, HCG ####[address] [place] [address] Hemoglobin mass conc (Bld) 14.0 g/dL Normal 11.9-15.1 [facility] Comment on above: Performed By: #### C DP ####[address] [address] #### BMP, HCG ####[address] [place] [address] Immature granulocytes #/vol (Bld) 0 % Normal 0 [facility] Comment on above: Performed By: #### C DP ####[address] [address] #### BMP, HCG ####[address] [place] [address] Lymphocytes Auto #/vol (Bld) 3.84 10*3/uL High 1.10-3.70 [facility] Comment on above: Performed By: #### C DP ####[address] [address] #### BMP, HCG ####[address] [place] [address] Lymphocytes/100 WBC Auto (Bld) 38 % Normal 24-43 [facility] Comment on above: Performed By: #### C DP ####[address] [address] #### BMP, HCG ####[address] [place] [address] MCH Auto Entitic mass (RBC) 29.5 pg Normal 25.2-33.5 [facility] Comment on above: Performed By: #### C DP ####[address] [address] #### BMP, HCG ####[address] [place] [address] MCHC Auto mass conc (RBC) 33.8 g/dL Normal 28.4-34.8 [facility] Comment on above: Performed By: #### C DP ####[address] [address] #### BMP, HCG ####[address] [place] [address] MCV Auto Entitic volume (RBC) 87.3 fL Normal 82.6-102.9 [facility] Comment on above: Performed By: #### C DP ####[address] [address] #### BMP, HCG ####[address] [place] [address] Monocytes Auto #/vol (Bld) 0.54 10*3/uL Normal 0.10-1.20 [facility] Comment on above: Performed By: #### C DP ####[address] [address] #### BMP, HCG ####[address] [place] [address] Monocytes/100 WBC Auto (Bld) 5 % Normal 3-12 [facility] Comment on above: Performed By: #### C DP ####[address] [address] #### BMP, HCG ####[address] [place] [address] Neutrophil (Seg) 55 % Normal 36-65 [facility] Comment on above: Performed By: #### C DP ####[address] [address] #### BMP, HCG ####[address] [place] [address] NRBC Automated 0.0 per 100 WBC Normal 0.0 [facility] Comment on above: Performed By: #### C DP ####[address] [address] #### BMP, HCG ####[address] [place] [address] Platelet mean volume Auto Entitic volume (Bld) 9.8 fL Normal 8.1-13.5 [facility] Comment on above: Performed By: #### C DP ####[address] [address] #### BMP, HCG ####[address] [place] [address] Platelets Auto #/vol (Bld) 270 10*3/uL Normal 138-453 [facility] Comment on above: Performed By: #### C DP ####[address] [address] #### BMP, HCG ####[address] [place] [address] RBC Auto #/vol (Bld) 4.74 10*6/uL Normal 3.95-5.11 [facility] Comment on above: Performed By: #### C DP ####[address] [address] #### BMP, HCG ####[address] [place] [address] WBC Auto #/vol (Bld) 10.0 10*3/uL Normal 3.5-11.3 [facility] Comment on above: Performed By: #### C DP ####[address] [address] #### BMP, HCG ####[address] [place] [address] Auto Diff Performed NOT REPORTED Normal [facility] Comment on above: Performed By: #### C DP ####[address] [address] #### BMP, HCG ####[address] [place] [address] Platelets Auto #/vol (Bld) NOT REPORTED Normal [facility] Comment on above: Performed By: #### C DP ####[address] [address] #### BMP, HCG ####[address] [place] [address] RBC morphology finding Nom (Bld) NOT REPORTED Normal [facility] Comment on above: Performed By: #### C DP ####[facility] [place] [address] #### BMP, HCG ####[address] [place] [address] WBC Morphology NOT REPORTED Normal [facility] Comment on above: Performed By: #### C DP ####[facility] [place] [address] #### BMP, HCG ####[address] [place] [address] CT ABDOMEN PELVIS WO CONTRAS Ton 02-25-2018 [...] by:PAULINE Menjivarigned by:Martina García MD02/25/18Final result Normal [facility] HCG Screen, Bloodon 02-26-20 18 HCG Qn Negative Normal NEG [facility] Comment on above: Result Comment: Spec imens with hCG levels near the threshold of the test (25 mIU/mL) may give a negative or indeterminate result. In such cases, another test should be performed with a new specimen in 48-72 hours. If early is suspected clinically in this setting, correlation with quantitative serum b-hCG level is suggested.[facility] has confirmed the use of plasma for this test. This has not been cleared or approved by the U.S. Food and Drug Administration. The FDA has determined that such clearance is not necessary.Performed at [address] [place] [address] Performed By: #### C DP ####[facility] [place], [place] [address] #### BMP, HCG ####[address] [place] [address] PTon 02-25-2018 INR Coag RelTime (PPP) 1.0 {INR} Normal 0.9-1.2 [facility] Comment on above: Result Comment: Perf ormed at [address] [place] [address] Performed By: #### P TT, PT ####[address] [place] [address] Prothrombin time (PT) Coag time (PPP) 10.8 s Normal 9.7-12.2 [facility] Comment on above: Performed By: #### P TT, PT ####[address] [place] [address] Urinalysis w/ Microon 2017 ----- Normal [facility] Comment on above: Performed By: #### U AMIC ####[address] [place] [address] Acetoacetic Acid,Ur Negative Normal NEG [facility] Comment on above: Performed By: #### U AMIC ####[address] [place] [address] Amorphous Sediment 2+ Abnormal NONE [facility] Comment on above: Result Comment: Perf ormed at [address] [place] [address] Performed By: #### U AMIC ####[address] [place] [address] Bacteria 1+ Abnormal [facility] Comment on above: Performed By: #### U AMIC ####[address] [place] [address] Bilirubin, SemiQt,Ur Negative Normal NEG [facility] Comment on above: Performed By: #### U AMIC ####[address] [place] [address] Color YELLOW Normal L [facility] Comment on above: Performed By: #### U AMIC ####[address] [place] [address] Epithelial cells 0 TO 2 Normal 0-25 [facility] Comment on above: Performed By: #### U AMIC ####[address] [place] [address] Glucose,Semi-qnt,Ur Negative Normal NEG [facility] Comment on above: Performed By: #### U AMIC ####[address] [place] [address] Hemoglobin, Ur 2+ Abnormal NEG [facility] Comment on above: Performed By: #### U AMIC ####[address] [place] [address] Leuckocyte Esterase TRACE Abnormal NEG [facility] Comment on above: Performed By: #### U AMIC ####[address] [place] [address] Mucus Strands TRACE Abnormal NONE [facility] Comment on above: Performed By: #### U AMIC ####[address] [place] [address] Nitrite,Ur Negative Normal NEG [facility] Comment on above: Performed By: #### U AMIC ####[address] [place] [address] PH,Ur 7.5 Normal 5.0-9.0 [facility] Comment on above: Performed By: #### U AMIC ####[address] [place] [address] Protein mass conc Negative Normal NEG [facility] Comment on above: Performed By: #### U AMIC ####[address] [place] [address] RBC Test strip #/vol (U) 5 TO 10 Normal 0-2 [facility] Comment on above: Performed By: #### U AMIC ####[address] [place] [address] Spec. [place],Ur 1.010 Normal 1.010-1.020 [facility] Comment on above: Performed By: #### U AMIC ####[address] [place] [address] Turbidity CLEAR Normal CLEAR [facility] Comment on above: Performed By: #### U AMIC ####[address] [place] [address] Urine WBC's 0 TO 2 Normal 0-5 [facility] Comment on above: Performed By: #### U AMIC ####[address] [place] [address] Urobilinogen,Ur Normal Normal NORM [facility] Comment on above: Performed By: #### U AMIC ####[address] [place] [address] Casts NOT REPORTED Normal [facility] Comment on above: Performed By: #### U AMIC ####[address] [place] [address] Comment NOT REPORTED Normal [facility] Comment on above: Performed By: #### U AMIC ####[address] [place] [address] Crystals NOT REPORTED Normal NONE [facility] Comment on above: Performed By: #### U AMIC ####[address] [place] [address] Epithelial, Renal NOT REPORTED Normal 0 [facility] Comment on above: Performed By: #### U AMIC ####[address] [place] [address] Other Observations NOT REPORTED Normal NREQ [facility] Comment on above: Performed By: #### U AMIC ####[address] [place] [address] Trichomonas NOT REPORTED Normal NONE [facility] Comment on above: Performed By: #### U AMIC ####[address] [place] [address] Yeast NOT REPORTED Normal NONE [facility] Comment on above: Performed By: #### U AMIC ####[address] [place] [address] Otolaryngology Office/Clinic Noteon 2017 Otolaryngology Office/Clinic Note [...] _Zhane Tamez MD 12/30/17 16:02 EDT Normal [facility] Otolaryngology Office/Clinic Noteon 11-18-2017 Otolaryngology Office/Clinic [...] _Zhane Tamez MD 11/18/17 16:31 EST Normal [facility] Otolaryngology Office/Clinic Note Patient seen for dispense of bilateral swim plugs. Both plugs display good fit in the ears, and patient confirmed comfort of fit. Proper insertion/removal was practiced successfully. Plan: Return if issues arise regarding swim plugs. N/C, swim plugs paid at last appointment.Electronicall y signed by _Rima Muñoz 11/18/17 16:04 EST Normal [facility] Otolaryngology Office/Clinic Noteon 01-18-2018 Otolaryngology Office/Clinic Note [...] by _Kyara RoqueRima 10/28/17 16:31 EST Normal [facility] Otolaryngology Office/Clinic Note Chief Complaint post-opHistory [...] _Zhane Tamez MD 10/28/17 15:41 EST Normal [facility] OPERATIVE REPORTon 8 OPERATIVE REPORT [address] [address] OPERATIVE REPORTPATIENT NAME: ELVI MOORE : 1980MED REC NO: [id number] ROOM:ACCOUNT NO: [id number] ADMIT DATE: 10/14/2017PROVIDER: Zhane TamezDATE OF PROCEDURE: [...] the procedure well.ZHANE TAMEZD: 10/14/2017 14:55:29 EN/V_[id number]_IJob#: [id number] Doc#: [id number]: [facility] OPERATIVE REPORT [address] [address] OPERATIVE REPORTPATIENT NAME: ELVI MOORE : 1980MED REC NO: [id number] ROOM:ACCOUNT NO: [id number] ADMIT DATE: 10/14/2017PROVIDER: Zhane TamezDATE OF PROCEDURE: 10/14/2017PREOPERATIVE DIAGNOSIS: Granulation tissue, TM perf with retained silveroxide myringotomy tube.POSTOPERATIVE DIAGNOSIS: Granulation tissue, TM perf with retained silveroxide myringotomy tube.OPERATIVE PROCEDURES: Removal of retained tube, debridement of granulationtissue, and placement of paper patch myringoplasty.ANESTHESIA: General.ANESTHESIOLOGIST: Susanna Frost, CRNASURGEON: Zhnae Tamez, MDCOMPLICATIONS: None.FINDINGS: Retained tube in the [...] tolerated theprocedure well.ZHANE TAMEZD: 10/14/2017 10:15:44 EN/[id number]_IJob#: [id number] Doc#: [id number]: [facility] Otolaryngology Office/Clinic Noteon 12-07-2017 Otolaryngology Office/Clinic [...] _Zhane Tamez MD 09/16/17 16:06 EST Normal [facility] Otolaryngology Consultationo n 04-20-2017 Otolaryngology Consultation [...] _Zhane Tamez MD 04/20/17 16:51 EDT Normal [facility] Vital Signs Date Time Vital Sign Value Performing Clinician Kvng roberto 09-13-2023 12:04-0500 Blood Pressure Location Diana HAWKINS [facility] 09-13-2023 12:04-0500 Diastolic blood pressure 74 mm[Hg] Diana HAWKINS [facility] 09-13-2023 12:04-0500 Heart rate 64 /min Diana HAWKINS [facility] 09-13-2023 12:04-0500 Respiratory rate 16 /min Diana HAWKINS [facility] 09-13-2023 12:04-0500 Systolic blood pressure 128 mm[Hg] Diana HAWKINS [facility] 05-28-2023 11:12-0400 Body temperature 98 [degF] MD Arleth Acharya Work Phone: [facility] 05-28-2023 11:12-0400 Body weight 70.76 kg MD Arleth Acharya Work Phone: [facility] 05-28-2023 11:12-0400 Diastolic blood pressure 94 mm[Hg] MD Arleth Acharya Work Phone: [facility] 05-28-2023 11:12-0400 Heart rate 88 /min MD Arleth Acharya Work Phone: [facility] 05-28-2023 11:12-0400 Respiratory rate 16 /min MD Arleth Acharya Work Phone: [facility] 05-28-2023 11:12-0400 SaO2% (BldA) [Mass fraction] 98 % MD Arleth Acharya Work Phone: [facility] 05-28-2023 11:12-0400 Systolic blood pressure 131 mm[Hg] MD Arleth Acharya Work Phone: [facility] 05-28-2023 11:00-0400 Body height 167.64 cm MD Arleth Acharya Work Phone: [facility] 06-29-2022 09:25-0400 Blood Pressure Location Diana HAWKINS [facility] 06-29-2022 09:25-0400 Diastolic blood pressure 84 mm[Hg] Diana HAWKINS [facility] 06-29-2022 09:25-0400 Heart rate 84 /min Diana HAWKINS [facility] 06-29-2022 09:25-0400 Respiratory rate 16 /min Diana HAWKINS [facility] 06-29-2022 09:25-0400 Systolic blood pressure 115 mm[Hg] Diana HAWKINS [facility] Encounters Encounter Date Encounter Type Care Provider Facility Start: 10-19-2023 ambulatory Diana Bairdi ty:[facility] Start: 09-20-2023 ambulatory [facility] Start: 09-16-2023 ambulatory Diana Bairdi ty:[id number] Start: 09-13-2023 End: 09-14-2023 ambulatory Arleth Acharya [facility] Start: 09-13-2023 End: 09-13-2023 Patient encounter procedure Diana HAWKINS [facility] Start: 08-19-2023 ambulatory [facility] Start: 07-20-2023 End: 07-21-2023 ambulatory [facility] Start: 07-20-2023 End: 07-20-2023 ambulatory [facility] Start: 06-28-2023 ambulatory Jany Demboske Facility:[facility] Start: 06-01-2023 End: 06-01-2023 ambulatory [facility] Start: 05-28-2023 End: 05-28-2023 ambulatory MD Arleth Acharya Work Phone: [facility] Work Phone: Start: 05-28-2023 End: 05-28-2023 Registered Recurring MD Arleth Acharya Work Phone: [facility] Work Phone: Start: 05-04-2023 ambulatory [facility] Start: 04-28-2023 End: 04-28-2023 ambulatory [facility] Start: 04-15-2023 ambulatory [facility] Start: 03-17-2023 ambulatory RUKHSANA MILLER [facility] Start: 02-18-2023 ambulatory RUKHSANA MILLER [facility] Start: 02-11-2023 End: 02-12-2023 ambulatory [facility] Start: 02-08-2023 ambulatory [facility] Start: 01-25-2023 End: 01-25-2023 ambulatory GENNA HEATON Facility: Start: 01-21-2023 End: 01-22-[address] ARLETH ACHARYA . Facility:[facility] Start: 01-11-2023 ambulatory Diana HAWKINS Facili ty:[facility] Start: 01-08-2023 ambulatory RUKHSANA MILLER [facility] Start: 01-04-2023 End: 01-05-2023 ambulatory Diana HAWKINS Facility:[facility] Start: 01-04-2023 End: 01-04-2023 Patient encounter procedure Diana Wolfgang ROSS [facility] Start: 12-24-2022 ambulatory [facility] Start: 12-10-2022 End: 12-11-2022 ambulatory [facility] Start: 12-10-2022 End: 12-10-2022 ambulatory [facility] Start: 11-24-2022 ambulatory [facility] Start: 11-20-2022 End: 11-21-2022 ambulatory JORDEN D. [facility] Start: 11-03-[address] [facility] Start: 10-21-2022 End: 10-21-2022 [facility] Start: 10-20-2022 End: 10-20-2022 ambulatory JORDEN Holt [facility] Start: 10-13-2022 End: 10-13-2022 Emergency department patient visit DUSTY WOMACK [facility] Start: 10-10-[address] ARLETH ACHARYA . Facili ty:[facility]1 Start: 10-06-2022 End: 10-06-[address] ARLETH ACHARYA . Facility:[facility] Start: 09-30-2022 End: 10-01-[address] ARLETH ACHARYA . Facility:[facility] Start: 09-21-2022 End: 09-21-[address] ARLETH ACHARYA . Facility:[facility] Start: 08-27-2022 Encounter for preprocedural laboratory examination DR DIANA HAWKINS . [facility] Start: 08-27-2022 End: 08-27-[address] DIANA [...] encounter procedure Diana HAWKINS [facility] Start: 06-11-[address] Facility :[facility] Start: 06-09-2022 End: 06-11-[address] Facility:[facility] Start: 06-03-2022 End: 06-03-2022 Emergency department patient visit ARLETH ACHARYA Facility:[facility] Start: 06-01-2022 End: 06-01-2022 Evaluation and management of inpatient Kevin Lane Facility:[facility] Start: 05-26-2022 End: 05-27-[address] Facility:[facility] Start: 05-26-2022 End: 05-27-2022 Encounter for preprocedural laboratory examination Kevin Lane Facility:[facility] Start: 05-16-2022 ambulatory NICK YOO Facility: Start: 05-01-2022 End: 05-02-2022 ambulatory NICK YOO Facility: Start: 04-29-2022 End: 04-29-2022 ambulatory ENEDINA IVEY . Facility: Start: 04-16-2022 End: 04-17-[address] ARLETH ACHARYA . Facility: Start: 04-07-2022 End: 04-08-[address] Facility:[facility] Start: 03-24-2022 End: 03-25-2022 ambulatory REFERRED SELF Facility:[facility] Start: 02-12-2022 End: 02-13-2022 ambulatory Kevin Nassaring Facility:[facility] Start: 01-09-2022 End: 01-10-2022 ambulatory REFERRED SELF Facility:[facility] Start: 12-26-2021 End: 12-27-2021 ambulatory REFERRED SELF Facility:[facility] Start: 12-09-2021 End: 12-10-2021 ambulatory REFERRED SELF Facility:[facility] Start: 10-30-2021 End: 10-31-2021 ambulatory Kevin Nassaring Facility:[facility] Start: 10-11-2021 End: 11-11-[address] Facility:[facility] Start: 10-07-2021 End: 10-08-2021 ambulatory Kevin Geocing Facility:[facility] Start: 10-06-2021 End: 10-11-2021 ambulatory Kevin Gehling Facility:[facility] Start: 08-12-2021 End: 08-13-2021 ambulatory REFERRED SELF Facility:[facility] Start: 10-09-2018 End: 10-09-2018 Emergency department patient visit [facility] Start: 06-13-2018 End: 06-13-2018 Emergency department patient visit [facility] Start: 02-25-2018 End: 02-26-2018 Emergency department patient visit [facility] Start: 2017 End: 12-31-2017 Ambulatory ZHANE TAMEZ Facility:[facility] Start: 11-18-2017 End: 11-19-2017 Ambulatory ZHANE TAMEZ Facility:[facility] Start: 10-28-2017 End: 10-29-2017 Ambulatory Rima Sparrow Facility:[facility] Start: 10-14-2017 End: 10-15-2017 Ambulatory ZHANE TAMEZ Facility:[facility] Start: 09-16-2017 End: 09-17-2017 Ambulatory ZHANE W TAMEZ Facility:[facility] Start: 06-24-2017 Ambulatory ZHANE W TAMEZ Facility :[facility] Start: 04-20-2017 End: 04-21-2017 Ambulatory ZHANE W TAMEZ Facility:[facility] Procedures Date Procedure Procedure Detail Performing Clinician Start: 08-27-2022 Cystoscopic removal of ureteric stent Diana HAWKINS Start: 07-23-2022 Cystoscopic insertio n of ureteric stent Diana HAWKINS Start: 10-07-2021 Antibody screen Kevin Rameyanyi Comment on above: Performed By: #### [id number] #### [address] Start: 10-09-2018 Ct abdomen & pelvis [...] Date Care Activity Detail Author Start: 05-28-2023 [facility] Iron binding capacit y [Mass/volume] in Serum or Plasma [facility] Iron saturation [Mas s Fraction] in Serum or Plasma [facility] Immunizations Immunization Date Immunization Notes Care Provider Fa cili 10-08-2021 SARS-CoV-2 (COVID-19 ) mRNA BNT-162b2 vax Dianaatul HAWKINS [facility] [place] 01-30-2021 SARS-CoV-2 (COVID-19 ) mRNA BNT-162b2 vax Dianaatul HAWKINS [facility] 01-09-2021 SARS-CoV-2 (COVID-19 ) mRNA BNT-162b2 vax Dianaatul HAWKINS [facility] [place] 07-11-2020 influenza virus vacc ine, unspecified formulation Diana HAWKINS [facility] 07-03-2020 influenza virus vacc ine, unspecified formulation Diana HAWKINS [facility] 07-18-2019 influenza virus vacc ine, unspecified formulation Diana HAWKINS [facility] 07-08-2018 influenza virus vacc ine, unspecified formulation Dianaatul HAWKINS [facility] 01-01-2016 pneumococcal polysaccharide vaccine, 23 valent Diana HAWKINS [facility] [place] 09-17-2013 influenza virus vacc ine, unspecified formulation Diana HAWKINS [facility] 07-10-2011 tetanus toxoid, redu edmar diphtheria toxoid, and acellular pertussis vaccine, adsorbed Diana HAWKINS [facility] [place] Payers Date Payer Category Payer Unknown [id number] 2017 Self-pay 2017 Unknown 2012 Unknown [id number] 2012 Unknown [id number] 1981 Unknown [id number] 2.16.8 40.1.831657.3.579.2.173 1981 Unknown [id number] 2.16.8 40.1.369885.3.579.2.173 1981 Unknown [id number] 2.16.8 40.1.378128.3.579.2.173 1981 Unknown [id number] 2.16.8 40.1.296355.3.579.2.173 1981 Unknown [id number] 2.16.8 40.1.628231.3.579.2.647 1981 Unknown [id number] 2.16.8 40.1.407816.3.579.2.647 1981 Unknown [id number] 2.16.8 40.1.382673.3.579.2.647 1981 Unknown [id number] .16.8 40.1.931982.3.579.2.647 1981 Unknown [id number] 2.16.8 40.1.934002.3.579.2.647 1981 Unknown [id number] 2.16.8 40.1.444196.3.579.2.647 1981 Unknown [id number] .16.8 40.1.157037.3.579.2.647 1981 Unknown [id number] .16.8 40.1.351340.3.579.2.647 1981 Unknown [id number] .16.8 40.1.777818.3.579.2.647 1981 Unknown [id number] 2.16.8 40.1.769805.3.579.2.647 1981 Unknown [id number] .16.8 40.1.046395.3.579.2.647 1981 Unknown [id number] 2.16.8 40.1.746709.3.579.2.647 1981 Unknown [id number] 2.16.8 40.1.906975.3.579.2.647 1981 Unknown [id number] 2.16.8 40.1.844930.3.579.2.647 1981 Unknown [id number] 2.16.8 40.1.747383.3.579.2.647 1981 Unknown [id number] 2.16.8 40.1.591420.3.579.2.647 1981 Unknown [id number] 2.16.84 0.1.856603.3.579.2.593 1981 Unknown [id number] 2.16.84 0.1.818442.3.579.2.593 1981 Unknown [id number] 2.16.84 0.1.662776.3.579.2.593 1981 Unknown [id number] 2.16.84 0.1.410773.3.579.2.593 1981 Unknown [id number] 2.16.84 0.1.092174.3.579.2.593 1981 Unknown [id number] 2.16.84 0.1.723576.3.579.2.593 1981 Unknown [id number] 2.16.84 0.1.231042.3.579.2.593 1981 Unknown [id number] 2.16.84 0.1.278659.3.579.2.593 1981 Unknown [id number] 2.16.84 0.1.739162.3.579.2.593 1981 Unknown [id number] 2.16.84 0.1.031680.3.579.2.593 1981 Unknown [id number] 2.16.84 0.1.890766.3.579.2.593 1981 Unknown [id number] 2.16.84 0.1.043909.3.579.2.593 1981 Unknown [id number] 2.16.84 0.1.555616.3.579.2.593 1981 Unknown [id number] 2.16.84 0.1.254757.3.579.2.593 1981 Unknown [id number] 2.16.84 0.1.948189.3.579.2.593 1981 Unknown [id number] 2.16.84 0.1.076764.3.579.2.593 1981 Unknown [id number] 2.16.84 0.1.497452.3.579.2.593 1981 Unknown [id number] 2.16.84 0.1.675236.3.579.2.593 1981 Unknown [id number] 2.16.8 40.1.215616.3.579.2.727 1981 Unknown [id number] 2.16.8 40.1.914243.3.579.2.727 1981 Unknown [id number] 2.16.8 40.1.010916.3.579.2.727 1981 Unknown [id number] 2.16.8 40.1.697383.3.579.2.727 1959 Self-pay [id number] Unknown [id number] 2.16.8 40.1.273949.3.579.2.531 Social History Date Type Detail Facility Start: 06-29-2022 End: 09-13-2023 Tobacco smoking status Ex-smoker (finding) [facility] Sex Assigned At Female [facility] [place] Start: 1980 Sex Assigned At Female [facility] Tobacco smoking status Never [facility] [place] Functional Status Date Assessment Result Facility 09-13-2023 Functional Status N/A [facility] [place] 06-29-2022 Functional Status N/A [facility] Clinical Notes 06-16-2022 to 09-13-2023 Note Date [...] Acharya prescribed Promethazine & Cipro 500mg BID [id number]. [facility] 09/08/23 CC: Lt Flank Pain BUN 14 Crea 0.66 eGFR >90 CT ap w/o - small stone Lt Kidney 4-5mm Pt had [facility] in January, July & August. They are [...] Acharya prescribed Promethazine and Cipro 500mg bid o21vnxg. Reports Dr. Acharya also started her on [...] ongoing for 1month (more content not included)... [facility] Comment on above: Result Comment: Elec [...] including vitamins, herbs, eye drops, creams, and uxoq-dic-opqjskn medicines. Any problems you or family members [...] provider tells you to take them. Taking wfwk-tki-gnkclhk medicines, vitamins, herbs, and supplements. Tests You [...] Follow these instructions at home: Medicines Take owdj-thz-yxxuobp and prescription medicines only as told by [...] provider. Document Revised: 06/10/2022 Document Reviewed: 05/09/2021 [employer] Patient Education 2022 [employer]. 09/13/2023 12:55:19 Hematuria, Adult Hematuria, Adult Hematuria [...] Follow these instructions at home: Medicines Take pdpa-qmw-xxckvxg and prescription medicines only as told by [...] or the blood stops without treatment. Take mmii-fth-cgfvxve and prescription medicines only as told by your health care provider. Drink enough fluid to keep your urine pale yellow. This information is not intended to replace advice given to you by your health care provider. Make sure you discuss any questions you have with your health care provider. Document Revised: 05/28/2021 Document Reviewed: 05/28/2021 [employer] Patient Education 2022 [employer]. Follow Up Care 08/20/2023 11:43:21 With:ROSS GENTILE, Diana Goss, URL Address: [facility] [address] [place] [address]- [phone] When: Unknown Comments:sched cysto [facility] [place] 09-13-2023 Note Urology Cystoscopy Cystoscopy is a [...] including vitamins, herbs, eye drops, creams, and plnh-jbm-hvhoqxd medicines. ? Any problems you or family [...] tells you to take them. ? Taking pvto-hpt-mjotswq medicines, vitamins, herbs, and supplements. Tests You [...] these instructions at home: Medicines ? Take dmyl-urs-bxyorxc and prescription medicines only as told by [...] the department th (more content not included)... [facility] 08-19-2023 Note Pain Medicine Medical [address] [address] Subjective Patient ID: Elvi Moore is a [...] retention loop lost. 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 Do not start before August 20, 2023. - HYDROcodone-acetaminophen ([place]) 5-325 mg tablet; Take 1 tablet by mouth if needed in the morning and at bedtime for severe pain (8-10 pain score). Do not start before September 19, 2023. Other chronic postprocedural pain - HYDROcodone-acetaminophen ([place]) 5-325 mg tablet; Take 1 tablet by mouth if needed in the morning and at bedtime for severe pain (8-10 pain score). Do not start before August 20, 2023. - HYDROcodone-acetaminophen ([place]) 5-325 mg tablet; Take 1 tablet by [...] to explain the condition. PLAN: 1. Refill [place] 5/325mg BID PRN. Okay to fill on fill date 2. Patient instructed to contact us should she receive or prior to filling any additional opioid medications. 3. MAPS/OARRS pulled and reviewed. 4. Lumbar xrays reviewed with patient and reassured of proper lead placement and no migration issues. Continue optimization of neurostimulation 5. RTC in 6-8 weeks with CLINICAL LAW PROFESSOR for med check All questions are answered, [...] condition which requires (more content not included)... [facility] 07-20-2023 Note Pain Medicine Medical [address] [address] Subjective Patient ID: Elvi Moore is a [...] hold of the Jackson rep. Pain Medications: [place] 5-325 BID. Pain relief lasts around 6 [...] from the pro (more content not included)... [facility] 06-01-2023 Note Attestation signed by Arjun Miner MD at 06/03/2023 12:16 PM I saw and evaluated the patient, participating in the holloway portions of the service. I reviewed the resident???s note. I agree with the resident???s findings and plan. Arjun Miner [place] [address] Subjective Patient ID: Elvi Moore is a [...] working well. PLAN: 1. DRG stimulator implanted ([employer]): rep at bed side, changing settings to further optimize pain control 2. Slowly titrated down on requirment of norco 3. Medication: continue current script of norco 5/325. 4. Continue lumbar and core strengthening 5. RTC 4 [facility] 05-04-2023 Note Attestation signed by [...] type 1 of left lower extremity HYDROcodone-acetaminophen ([place]) 5-325 mg tablet 2. History of total knee arthroplasty, left 3. Morbid obesity (CMS/HCC) 4. Other chronic postprocedural pain 5. Complex regional pain syndrome type 1 of left lower extremity HYDROcodone-acetaminophen ([place]) 5-325 mg tablet chronic, uncontrolled, awaiting DRG stimulator implant 6. Presence of neurostimulator [place] [address] Subjective Patient ID: Elvi Moore is a [...] DRG. She is currently spacing out her [place] 5/325 every 6 hours compared to every 4 hours due to the incisional pain. Discussed chronic pain, medication use, treatment goals. Medication risk and benefits discussed. The Spine Diagram and Test results were used to explain the condition. PLAN: 1. Remove sutures today of incision site. 2. Intervention: DRG stimulator implanted (Jackson) , have patient reach out to [facility] for any further 3. Medication: continue current script of norco 5/325. Patient scheduled for a refill 05/19/2023. Patient was instructed to take more of her norco on the current script 4. Continue lumbar and core strengthening 5. RTC [facility] 04-28-2023 Note No concerns as per c all back guidelines [facility] 04-28-2023 Note Patient: Elvi tilley Procedure Summary Date: 04/28/23 Room / Location: [facility] OPERATING ROOM 04 / [facility] Operating Room Anesthesia Start: 0850 [...] per anesthesia protocol. No notable events documented. [facility] 04-28-2023 Note Patient: Elvi tilley Procedure Summary Date: 04/28/23 Room / Location: [facility] OPERATING ROOM 04 / [facility] Operating Room Anesthesia Start: 0850 [...] observation Transport: uneventful Patient condition is: stable [facility] 04-28-2023 Note Airway Date/Time: 04/28/2023 8:58 AM Urgency: elective Airway not difficult General Information and Staff Patient location during procedure: OR Anesthesiologist: Bjorn Charles MD Resident/EMPLOYMENT COUNSELOR/CAA: RL Arreguin Performed: other anesthesia staff Learner [...] by AA student; Dentures to Circ RN [facility] 04-28-2023 Note Patient: Elvi tilley Procedure Information Date/Time: 04/28/23 0930 Procedure: INSERTION, PULSE GENERATOR, SPINAL CORD STIMULATOR - C-Arm, Jackson REP NOTIFIED 04/21 JK Location: [facility] OPERATING ROOM 04 / [facility] Operating Room Surgeons: Arjun Miner [...] CAA and medical student. 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 Do not wear perfume, make-up, nail bulgarian, or lotions on the day of your [...] need to make any changes, please call [phone]. Notify your surgeon if you develop any illness such as a cold, cough, fever, sore throat or vomiting between now and your surgery. Thank you for entrusting us with your care. [facility] Surgical Services Team [facility] 03-17-2023 Note Pain Medicine Medical [address] [address] Subjective Patient ID: Elvi Moore is a [...] old female here for follow up after [facility] point psychology evaluation on 12/29 for SCS and is determined a good candidate for SCS trial. She will have DRG trial with [employer]. She states she is mainly concerned about [...] the limited duration of benefit. Currently taking [place] 5-325 mg daily which brings her pain [...] joint movement) Y (more content not included)... [facility] 03-05-2023 Note Subjective Patient ID: Elvi Moore is a 42 y.o. female. Patient called requesting refill of [place]. She underwent successful SCS-DRG trial and awaiting permanent implant PA. PDMP reviewed and last fill on 01/31/23. Will provide 2 week rx and further refill will require office visit. Assessment/Plan Diagnoses and all orders for this visit: Complex regional pain syndrome type 1 of left lower extremity [facility] 02-18-2023 [place] [address] Subjective Patient ID: Elvi Moore is a [...] trial. She will have DRG trial with [employer]. She states she is mainly concerned about [...] the limited duration of benefit. Currently taking [place] 5-325 mg daily which brings her pain [...] no other diagn (more content not included)... 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 cyanocobalamin, vitamin B-12, 1,000 mcg/mL kit Inject as directed every 30 (thirty) days. diclofenac (Voltaren) 1 % topical gel apply 4 grams to affected area ferrous sulfate 325 (65 Fe) MG tablet every 12 (twelve) hours. HYDROcodone-acetaminophen ([place]) 5-325 mg tablet Take 1 tablet by [...] - normal exam Plan ASA 2 Mild [facility] 01-08-2023 Note Pain Medicine Medical [address] [address] Subjective Patient ID: Elvi Moore is a [...] Medication (See MAR), Heat applied, Cold applied ([place] and tylenol) Response to Interventions: [place] works for about 6 hours, ice and heat do not help 42 year old female here for follow up after [facility] point psychology evaluation on 12/29 for SCS and is determined a good candidate for SCS trial. She will have DRG trial with [employer]. She states she is mainly concerned about [...] the limited duration of benefit. Currently taking [place] 5-325 mg daily which brings her pain [...] asymmetry Y Motor/Trop (more content not included)... [facility] 01-04-2023 Hospital Discharge instructions Patient [...] include: ?Spinach. ?Rhubarb. ?Beets. ?Potato chips and czech fries. ?Nuts. If you regularly take a diuretic medicine, make sure to eat at least 1 2 fruits or vegetables high in potassium each day. These include: ?Avocado. ?Banana. ?[place], prune, carrot, or tomato juice. ?Baked potato. [...] Casseroles. Pizza. Lasagna. Frozen meals. Potato chips. Divehi fries. Summary You can reduce your risk [...] 01/22/2012 Document Revised: 01/17/2020 Document Reviewed: 09/07/2017 [employer] Patient Education 2020 [employer]. Follow Up Care 10/29/2022 14:23:18 With:RSOS GENTILE, Diana Goss, URL Address: [facility] [address] , [place] [address]- When: Unknown [facility] 12-24-2022 Note Attestation signed by Arjun Miner [...] where the trial produced relief[place] [address] Subjective Patient ID: Elvi Moore is a 41 y.o. female. Date:12/24/22 12/24/22 CC: Chief Complaint Patient presents with Follow-up S/P sympathetic nerve block it helped a couple of days brought pain level down a little before procedure pain was 7 after procedure pain was 5 or 6. The injection did help the pain for a couple days. SUBJECTIVE: Elvi Mooer is a 41 y.o. female who presents [...] the limited duration of benefit. Currently taking [place] 5-325 mg daily which brings her pain [...] lateral > media (more content not included)... [facility] 12-11-2022 Note Post call Pt states the stabbing pain 10/10 is somewhat better now a 6. Feels like cramping pain. Reminded of follow up in clinic. [facility] 11-24-2022 Note History Referral Source: [facility] Orthopedics 11/25/22 CC: Chief Complaint Patient presents [...] unremarkable. 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 Past History of Treatments: Patient has tried other professional care of: OPPT (last performed in 07/2022) Trialed medications: Ibuprofen Current Medications for Associated Pain: [place] 5/325, Amitriptyline 50 qhs Current Outpatient Medications [...] 06/01/22 Left TKA (more content not included)... [facility] 11-24-2022 Note History Referral Source: [facility] Orthopedics 11/25/22 CC: Chief Complaint Patient presents [...] unremarkable. 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 Past History of Treatments: Patient has tried other professional care of: OPPT (last performed in 07/2022) Trialed medications: Ibuprofen Current Medications for Associated Pain: [place] 5/325, Amitriptyline 50 qhs Current Outpatient Medications [...] 06/01/22 Left TKA (more content not included)... [facility] 11-20-2022 Note Orthopaedic Surgery Outpatient [...] Stress Concern Presen (more content not included)... [facility] 11-19-2022 Note Please schedule an a ppointment for her for evaluation of the knee tomorrow afternoon. [facility] 11-13-2022 Note Talked with patient about her current situation with her knee. Discussed cultures and after discussion with Dr. Lane we will give her a referral to pain management. [facility] 11-05-2022 Note Spoke with lab and n ew order was placed. [facility] 11-03-2022 Note Orthopaedic Surgery Outpatient [...] Days of E (more content not included)... [facility] 10-21-2022 Note RECURRENT PAIN AT [facility]BDULLAHI RGICAL KNEE; RECOMMENDED ER EVALUATION PER [facility] 10-21-2022 Note If pain is 10/10 unc ontrolled I would recommend going to ER for further evaluation. [facility] 10-20-2022 Note Orthopaedic Surgery Outpatient [...] No Physical Activ (more content not included)... [facility] 06-29-2022 Evaluation + Plan note Diagnostic Tests [facility]ending[facility]ysion Fish and Urine Cyto ([facility]) 06/29/22 [facility] Monique 06-29-2022 Hospital Discharge instructions Patient Education [...] Follow these instructions at home: Medicines Take pymc-imc-tfrnmjf and prescription medicines only as told by [...] or the blood stops without treatment. Take patk-jpb-tndxjcy and prescription medicines only as told by your health care provider. Drink enough fluid to keep your urine clear or pale yellow. This information is not intended to replace advice given to you by your health care provider. Make sure you discuss any questions you have with your health care provider. Document Released: 09/27/2006 Document Revised: 02/21/2020 Document Reviewed: 10/30/2017 [employer] Patient Education 2020 [employer]. Follow Up Care 05/06/2022 15:50:29 With:ROSS GENTILE, Diana Goss, URL Address: [facility] [address] , [place] [phone] When: Unknown [facility] 06-16-2022 Note MR#: [id number] I [facility] Pt. Name: Elvi Moore Admitted: [...] Cavazos MD Date Trans: 06/16/2022 02:27 P/taylor [id number] cc: Arleth Acharya M.D. [address] [id number] [facility] Evaluation + Plan note Future Appointments Appointment Date:01/11/2023 01:45:00 PM Scheduled Provider:Diana HAWKINS MD Location:[facility] Appointment Type:URO Office Visit [facility] Evaluation note No assessment inform ation available [facility] Work Phone: Hospital course Narrative No data available for this section [facility] Progress note No data available for this section [facility] Summary Purpose Family History No Family History [...] section and content) DATE CREATED AUTHOR 03/31/2018 [facility] DATE CREATED AUTHOR AUTHOR'S ORGANIZ ATION 10/11/2018 [facility] DATE CREATED AUTHOR AUTHOR'S ORGANIZ ATION 06/23/2022 [facility] DATE CREATED AUTHOR AUTHOR'S ORGANIZ ATION 01/28/2023 [facility] DATE CREATED AUTHOR AUTHOR'S ORGANIZ ATION 07/31/2023 [facility] DATE CREATED AUTHOR AUTHOR'S ORGANIZ ATION 09/10/2023 [facility] DATE CREATED AUTHOR AUTHOR'S ORGANIZ ATION 09/28/2023 [facility] Care Team (unrecognized sect ion and [...] BE BASED ON THE PRIMARY CLINICAL RECORDS. [employer] provides no warranty or guarantee of the accuracy or completeness of information in this document.
[2023-10-02 15:29] LABS: Anion Gap 13.6; BUN Creatinine Ratio 13.3; Carbon Dioxide 28.2 mmol/L (21.0-32.0); Chloride 103 mmol/L (98-107); Estimated GFR (African America >60 (>=60); Estimated GFR (Non-African Ame >60 (>=60); Glucose 94 mg/dL (74-106); Potassium 3.8 mmol/L (3.5-5.1); Sodium 141 mmol/L (136-145)
[2023-10-02 15:37] VITALS: BP 148/99; PULSE 88; RESP 18; O2SAT 98
[2023-10-02 16:19] VITALS: BP 109/81; PULSE 83; RESP 18; O2SAT 100
[2023-10-02] MEDS: MORPHINE SULFATE 4 MG/ML VIAL IV (16:41)
[2023-10-02 16:47] VITALS: BP 134/95; PULSE 90; RESP 20; O2SAT 100
== END 2023-10-02 17:09 | disposition home or self-care (01) ==
PROVIDERS: Emergency Provider Emergency Medicine; PCP Family Medicine
DX: N23 Unspecified renal colic (principal); F41.9 Anxiety disorder, unspecified; F32.A Depression, unspecified; Z90.49 Acquired absence of other specified parts of digestive tract; Z98.890 Other specified postprocedural states; Z96.22 Myringotomy tube(s) status; Z96.89 Presence of other specified functional implants; Z96.652 Presence of left artificial knee joint; Z90.710 Acquired absence of both cervix and uterus; Z98.84 Bariatric surgery status; Z79.899 Other long term (current) drug therapy; Z87.891 Personal history of nicotine dependence
CPT/HCPCS: 36415; 80048; 85025; 96374; 96375; 99284; J1170

== ENCOUNTER 2023-10-05 21:01 | Emergency (ER) | payer OTHER, SELFPAY ==
[2023-10-05 21:05] VITALS: BP 146/92; PULSE 89; RESP 20; TEMP 36.8; O2SAT 98
--- NOTE | 2023-10-05 21:19 | PC.NURSE ---
Pain to left flank that is radiating down through pelvis, patient has renal stent in place. Urine sample obtained and urine is dark yellow in color.
--- NOTE | 2023-10-05 21:37 | ED_ITS ---
HPI - Female Genitourinary General Chief complaint: Urogenital-Female Stated complaint: Flank Pain, Vaginal Pain Time Seen by Provider: 10/05/23 21:08 Source: patient Mode of arrival: walk-in Limitations: no limitations History of Present Illness HPI Narrative: 42-year-old female presents for left flank pain. She recently had a stent removed and was seen here on October 01. At that time she had a CAT scan. She w as seen here the next day and was ultimately discharged home. She continues to have severe pain and she tried to see her urologist but wasn't able to do so. She's been vommiting as well. Related Data Home Medications Medication Instructions Recorded Confirmed amitriptyline 50 mg tablet 100 mg PO BEDTIME 08/11/23 10/02/23 conjugated estrogens 0.625 mg/gram 0.625 mg vaginal PRN 08/11/23 10/02/23 vaginal cream (Premarin) cyanocobalamin (vitamin B-12) 1,000 mcg IM .monthly 08/11/23 10/02/23 1,000 mcg/mL injection solution hydrocodone 5 mg-acetaminophen 325 1 tab PO Q12H PRN pain 08/11/23 10/02/23 mg tablet ondansetron 4 mg disintegrating 4 mg PO Q4H PRN nausea and vomiting 08/11/23 10/02/23 tablet tamsulosin 0.4 mg capsule (Flomax) 0.4 mg PO DAILY 08/11/23 10/02/23 tizanidine 4 mg tablet 4 mg PO BEDTIME 08/11/23 10/02/23 pantoprazole 40 mg tablet,delayed 40 mg PO BID 09/13/23 10/02/23 release Previous Rx's Medication Instructions Recorded solifenacin 10 mg tablet (Vesicare) 10 mg PO DAILY #14 tabs 09/16/23 oxybutynin chloride 5 mg tablet 5 mg PO Q12H PRN bladder spasms 3 10/01/23 days #14 tabs oxycodone-acetaminophen 5 mg-325 1 tab PO Q4H PRN pain #7 tabs 10/01/23 mg tablet (Percocet) phenazopyridine 200 mg tablet 200 mg PO Q8H 2 days #6 tabs 10/01/23 (Pyridium) Allergies Allergy/AdvReac Type Severity Reaction Status Date / Time ketorolac [From Toradol] Allergy Intermediate Verified 10/02/23 15:01 meperidine [From Demerol] Allergy Intermediate Verified 10/02/23 15:01 prochlorperazine Allergy Intermediate Verified 10/02/23 15:01 [From Compazine] Review of Systems ROS Narrative A ten point review of systems is negative except as noted above. PFSH PFSH Medical History (Updated 10/06/23 @ 00:12 by Durga Aguiar MD) Dehydration ?E86.0 - Dehydration (ICD-10) Cholecystectomy planned Acute pain ?R52 - Pain, unspecified (ICD-10) Anxiety ?F41.9 - Anxiety disorder, unspecified (ICD-10) Depression ?F32.A - Depression, unspecified (ICD-10) Stomach ulcer ?K25.9 - Gastric ulcer, unspecified as acute or chronic, without hemorrhage or perforation (ICD-10) Pancreatitis ?K85.90 - Acute pancreatitis without necrosis or infection, unspecified (ICD- 10) Kidney stone ?N20.0 - Calculus of kidney (ICD-10) Surgical History (Updated 09/13/23 @ 13:54 by Bisi Bowie RN) Hx laparoscopic cholecystectomy ?Z90.49 - Acquired absence of other specified parts of digestive tract (ICD- 10) History of lumpectomy of right breast ?Z98.890 - Other specified postprocedural states (ICD-10) History of placement of ear tubes ?Z96.22 - Myringotomy tube(s) status (ICD-10) S/P insertion of spinal cord stimulator ?Z96.89 - Presence of other specified functional implants (ICD-10) History of knee replacement procedure of left knee ?Z96.652 - Presence of left artificial knee joint (ICD-10) Gastric bypass status for obesity ?Z98.84 - Bariatric surgery status (ICD-10) H/O: hysterectomy ?Z90.710 - Acquired absence of both cervix and uterus (ICD-10) Hx of appendectomy ?Z90.49 - Acquired absence of other specified parts of digestive tract (ICD- 10) Family History (Updated 08/11/23 @ 10:31 by Josie Pantoja) Grandfather Family history of COPD (chronic obstructive pulmonary disease) Father Family history of cancer Family history of diabetes mellitus Family history of hypertension Family history of stroke Sister Family history of cancer Family history of diabetes mellitus Grandmother Family history of diabetes mellitus Family history of hypertension Social History (Updated 09/13/23 @ 13:56 by Bisi Bowie RN) Within the past year, how often did you have a drink containing alcohol: never Within the past year, how many standard drinks containing alcohol did you have on a typical day: 1 or 2 Within the past year, how often did you have six or more drinks on one occasion: never Total score: 0 Score interpretation: A score less than 3 is consistent with normal alcohol consumption. Smoking status: Former smoker Second hand tobacco smoke exposure: No Non-prescribed substance use: denies use Previous occupational history: [employer] Known occupational exposures/hazards: No Highest level of school completed/degree received: some college, no degree Are you now , , , , never or living with a partner: In a typical week, how many times do you talk on the telephone with family, friends, or neighbors: 3 or more times per week How often do you get together with friends or relatives: 3 or more times per week How often do you attend nondenominational or catholic services: 4 or more times per year Do you belong to any clubs or organizations such as nondenominational groups unions, fraternal or athletic groups, or school groups: no Total score: 3 Score interpretation: A score of greater than or equal to 2 indicates the lowest level of social isolation. Little interest or pleasure in doing things: not at all Feeling down, depressed, or hopeless: not at all Feel stressed/tense/nervous/anxious/difficulty sleeping: not at all Do you think of yourself as: straight/heterosexual Gender Identity: female Exam Narrative Exam Narrative: Nurses note and vital signs reviewed and patient is not hypoxic. General: The patient appears uncomfortable and is tearful Skin: Warm, dry, no pallor noted. There is no rash noted. Head: Normocephalic, atraumatic Eye: Normal conjunctiva, no drainage Ears, Nose, Mouth, and Throat: oral mucosa is moist. Nares patent. Cardiovascular: Regular Rate and Rhythm Respiratory: Patient is in no distress, no accessory muscle use, lungs are clear to auscultation, no wheezing, rales or rhonchi Back: non-tender, no CVA tenderness bilaterally to percussion. GI: soft and nontender Musculoskeletal: The patient has no evidence of calf tenderness, no pitting edema, symmetrical pulses noted bilaterally Neurological: A&O, normal speech Psychiatric: Cooperative Constitutional Vital Signs, click to edit/add: Last Vital Signs Temp 98.3 F 10/05/23 21:05 Pulse 75 10/06/23 00:01 Resp 14 10/06/23 00:01 BP 148/89 H 10/06/23 00:01 Pulse Ox 97 10/06/23 00:01 O2 Del Method Room Air 10/05/23 21:05 Course Vital Signs Vital signs: Vital Signs Temperature 98.3 F 10/05/23 21:05 Pulse Rate 89 10/05/23 21:05 Respiratory Rate 20 10/05/23 21:05 Blood Pressure 146/92 H 10/05/23 21:05 Pulse Oximetry 98 10/05/23 21:05 Oxygen Delivery Method Room Air 10/05/23 21:05 Temperature 98.3 F 10/05/23 21:05 Pulse Rate 75 10/06/23 00:01 Respiratory Rate 14 10/06/23 00:01 Blood Pressure 148/89 H 10/06/23 00:01 Pulse Oximetry 97 10/06/23 00:01 Oxygen Delivery Method Room Air 10/05/23 21:05 MDM - Female Genitourinary MDM Narrative Medical decision making narrative: CAT scan findings are discussed with the patient and she was recommended MiraLAX. WBC is normal as is her renal function. No evidence of urinary tract infection. The hydronephrosis previously seen is now resolved. She'll follow-up with her urologist. Treatment diagnosis and follow-up were discussed with the patient. Differential Diagnosis Differential diagnosis: Likely urinary tract infection and other (renal colic, constipation) Lab Data Attestation: I reviewed the patient's lab results. Labs: Lab Results 10/05/23 10/05/23 Range/Units 21:15 21:45 WBC 6.4 (4.0-11.0) 10^3/uL RBC 4.28 (4.20-5.40) 10^6/uL Hgb 12.2 (12.0-16.0) g/dL Hct 38.5 (36.0-48.0) % MCV 90.0 (81.0-99.0) fL MCH 28.5 (26.7-34.0) pg MCHC 31.7 (29.9-35.2) g/dL RDW 13.1 (11.0-15.0) % Plt Count 239 (150-450) 10^3/uL MPV 9.5 (9.5-13.5) fL Neut % (Auto) 63.8 (43.0-75.0) % Lymph % (Auto) 29.8 (20.5-60.0) % [place] % (Auto) 4.8 (1.7-12.0) % Eos % (Auto) 1.2 (0.9-7.0) % Baso % (Auto) 0.2 (0.2-2.0) % Neut # (Auto) 4.1 (1.4-6.5) 10^3/uL Lymph # (Auto) 1.9 (1.2-3.8) 10^3/uL [place] # (Auto) 0.3 (0.3-0.8) 10^3/uL Eos # (Auto) 0.1 (0.0-0.7) 10^3/uL Baso # (Auto) 0.0 (0.0-0.1) 10^3/uL Abs Immat Gran (auto) 0.01 (0.00-0.03) 10^3/uL Imm/Tot Granulo (auto) 0.2 (0.0-0.5) % Sodium 141 (136-145) mmol/L Potassium 3.8 (3.5-5.1) mmol/L Chloride 104 (98-107) mmol/L Carbon Dioxide 30.1 (21.0-32.0) mmol/L Anion Gap 10.7 BUN 11.0 (7.0-18.0) mg/dL Creatinine 0.75 (0.55-1.02) mg/dL Est GFR ( Amer) >60 (>=60) Est GFR (Non-Af Amer) >60 (>=60) BUN/Creatinine Ratio 14.7 Glucose 100 (74-106) mg/dL Calcium 9.4 (8.5-10.1) mg/dL Urine Color Lt. yellow (YELLOW) Urine Clarity Clear (CLEAR) Urine pH 7.0 (5.0-9.0) Ur Specific [place] 1.020 (1.005-1.025) Urine Protein 30 A (NEG/TRACE) mg/dL Urine Glucose (UA) Negative (NEGATIVE) mg/dL Urine Ketones Negative (NEGATIVE) mg/dL Urine Occult Blood Large A (NEGATIVE) Urine Nitrite Negative (NEGATIVE) Urine Bilirubin Negative (NEGATIVE) Urine Urobilinogen 1.0 (0.2-1.0) EU/dL Ur Leukocyte Esterase Trace A (NEGATIVE) Urine RBC 10-20 A (0-2) #/HPF Urine WBC 0-2 A (NONE SEEN) #/HPF Ur Squamous Epith Cells Rare (NONE/RARE) #/LPF Urine Crystals None seen (None Seen) #/HPF Urine Bacteria Trace A (NONE SEEN) #/HPF Urine Casts None seen (NONE SEEN) #/LPF Urine Mucus None seen (NONE SEEN) Ur Culture Indicated? Already ordered Imaging Data CT scan - abdomen: Radiologist's impression: Procedure: CT abdomen pelvis wo con EXAM: CT abdomen pelvis wo con TECHNIQUE: Axial CT images were obtained of the abdomen and pelvis without intravenous contrast. Sagittal and coronal reformatted images were also obtained. Dose reduction techniques were achieved by using automated exposure control and/or adjustment of mA and/or kV according to patient size and/or use of iterative reconstruction technique. HISTORY: left flank pain, recent stent removed COMPARISON: 08/12/2023 and 10/01/2023 FINDINGS: Lower chest: The lower lungs are clear. Liver: Stable small cyst adjacent to the left lobe fissure. Gallbladder: Status post cholecystectomy. No significant biliary dilatation. Pancreas: The pancreas is homogeneous without evidence for mass lesion or inflammation. Spleen: The spleen is unremarkable without evidence for mass lesion. Adrenal glands: The adrenal glands are unremarkable Kidneys and bladder: The unenhanced right kidney is unremarkable. A left-sided ureteral stent is seen in place. The left kidney is otherwise unremarkable. The ureters demonstrate normal caliber. The urinary bladder is unremarkable. GI Tract: Postsurgical changes of the stomach and proximal small bowel. No small bowel obstruction. The appendix has been surgically removed.Moderate retained stool throughout the colon. Reproductive: The uterus has been removed. Lymph nodes: No retroperitoneal or abdominal lymphadenopathy. Vascular: The aorta is not dilated. Peritoneum: No free intraperitoneal air or fluid. No acute inflammation. Abdominal wall: Lumbar spine stimulator noted. IMPRESSION: Moderate retained stool throughout the colon which may suggest constipation. Left-sided ureteral stent in place with interval resolution of hydronephrosis. Electronically authenticated by: BEATRICE WILLIAMSON Date: 10/05/2023 22:35 Discharge Plan Discharge Chief Complaint: Urogenital-Female Clinical Impression: Renal colic on left side, Constipation Patient Disposition: Home, Self-Care Time of Disposition Decision: 00:12 Condition: Good Mode of Transportation: Private Vehicle Prescriptions / Home Meds: No Action ondansetron 4 mg tablet,disintegrating 4 mg PO Q4H PRN (Reason: nausea and vomiting) Rx Instructions: filled 08/10/23 for 3 days tamsulosin [Flomax] 0.4 mg capsule 0.4 mg PO DAILY Patient Comments: filled 08/10/23 for 14 days amitriptyline 50 mg tablet 100 mg PO BEDTIME Premarin 0.625 mg/gram cream 0.625 mg vaginal PRN cyanocobalamin (vitamin B-12) 1,000 mcg/mL solution 1,000 mcg IM .monthly tizanidine 4 mg tablet 4 mg PO BEDTIME hydrocodone-acetaminophen 5-325 mg tablet 1 tab PO Q12H PRN (Reason: pain) pantoprazole 40 mg tablet,delayed release (DR/EC) 40 mg PO BID solifenacin [Vesicare] 10 mg tablet 10 mg PO DAILY Qty: 14 0RF oxybutynin chloride 5 mg tablet 5 mg PO Q12H PRN (Reason: bladder spasms) 3 Days Qty: 14 0RF phenazopyridine [Pyridium] 200 mg tablet 200 mg PO Q8H 2 Days Qty: 6 0RF oxycodone-acetaminophen [Percocet] 5-325 mg tablet 1 tab PO Q4H PRN (Reason: pain) Qty: 7 0RF Instructions: Constipation (DC), Renal Colic (ED) Stand Alone Forms: Portal Instructions Referrals: Yasir Ledesma MD [Primary Care Provider] - 1 week
[2023-10-05 21:53] LABS: Basophils Percent Auto 0.2 % (0.2-2.0); Eosinophils Absolute Auto 0.1 10^3/uL (0.0-0.7); Eosinophils Percent Auto 1.2 % (0.9-7.0); Hematocrit 38.5 % (36.0-48.0); Hemoglobin 12.2 g/dL (12.0-16.0); Immature Granulocytes Abs Auto 0.01 10^3/uL (0.00-0.03); Immature Granulocytes Pct Auto 0.2 % (0.0-0.5); Lymphocytes Absolute Auto 1.9 10^3/uL (1.2-3.8); Lymphocytes Percent Auto 29.8 % (20.5-60.0); Mean Corpuscular HGB Conc 31.7 g/dL (29.9-35.2); Mean Corpuscular Hemoglobin 28.5 pg (26.7-34.0); Mean Platelet Volume 9.5 fL (9.5-13.5); Monocytes Absolute Auto 0.3 10^3/uL (0.3-0.8); Monocytes Percent Auto 4.8 % (1.7-12.0); Neutrophils Absolute Auto 4.1 10^3/uL (1.4-6.5); Neutrophils Percent Auto 63.8 % (43.0-75.0); Platelet Count 239 10^3/uL (150-450); Red Blood Count 4.28 10^6/uL (4.20-5.40); Red Cell Distribution Width 13.1 % (11.0-15.0); White Blood Count 6.4 10^3/uL (4.0-11.0)
[2023-10-05] MEDS: 0.9 % SODIUM CHLORIDE 1,000 ML 1000 ML IV (21:54)
[2023-10-05] MEDS: MORPHINE SULFATE 4 MG/ML VIAL IV ×2 (21:55→23:33)
[2023-10-05] MEDS: ONDANSETRON PF 4 MG/2 ML VIAL IV (21:55)
[2023-10-05 22:12] LABS: Anion Gap 10.7; BUN Creatinine Ratio 14.7; Calcium 9.4 mg/dL (8.5-10.1); Carbon Dioxide 30.1 mmol/L (21.0-32.0); Chloride 104 mmol/L (98-107); Estimated GFR (African America >60 (>=60); Estimated GFR (Non-African Ame >60 (>=60); Glucose 100 mg/dL (74-106); Potassium 3.8 mmol/L (3.5-5.1); Sodium 141 mmol/L (136-145)
[2023-10-05 22:14] LABS: Bilirubin Urine NEGATIVE (NEGATIVE); Blood Urine LARGE (NEGATIVE); Clarity Urine CLEAR (CLEAR); Color Urine LT. YELLOW (YELLOW); Glucose Urine UA NEGATIVE (NEGATIVE); Ketones Urine NEGATIVE (NEGATIVE); Leukocyte Esterase Urine TRACE (NEGATIVE); Nitrite Urine NEGATIVE (NEGATIVE); Protein Urine 30 mg/dL (NEG/TRACE)
[2023-10-05 22:19] LABS: Bacteria Urine TRACE #/HPF (NONE SEEN); Cast Seen? NONE SEEN #/LPF (NONE SEEN); Crystals Seen? None Seen #/HPF (None Seen); Mucus Urine NONE SEEN (NONE SEEN); Squamous Epithelial Cell Urine RARE #/LPF (NONE/RARE); Urine Culture Indicated ALREADY ORDERED; WBC Urine 0-2 #/HPF (NONE SEEN)
[2023-10-06 00:01] VITALS: BP 148/89; PULSE 75; RESP 14; O2SAT 97
== END 2023-10-06 00:27 | disposition home or self-care (01) ==
PROVIDERS: Emergency Provider Emergency Medicine; PCP Family Medicine
DX: K59.00 Constipation, unspecified (principal); N23 Unspecified renal colic; F41.9 Anxiety disorder, unspecified; F32.A Depression, unspecified; Z87.442 Personal history of urinary calculi; Z90.49 Acquired absence of other specified parts of digestive tract; Z98.84 Bariatric surgery status; Z90.710 Acquired absence of both cervix and uterus; Z96.652 Presence of left artificial knee joint; Z87.891 Personal history of nicotine dependence
CPT/HCPCS: 36415; 74176; 80048; 81001; 85025; 87086; 96361; 96374; 96375; 96376; 99284

== ENCOUNTER 2024-03-03 11:43 | Outpatient (OUT) | payer OTHER, SELFPAY ==
--- OUTSIDE RECORDS SUMMARY | 2024-03-03 11:53 | XMS_ITS | CCD ---
Author Organization [facility] Care Team Providers Care Montessori Teacher Name Role Phone TAMEZ, ZHANE W Unavailable Unavailable Hoy, Arleth [...] Unavailable Unavailable Hoy, Arleth Dax Unavailable Unavailable TAMZEZHANE MI Unavailable Unavailable TAMEZ, ZHANE MI Unavailable Unavailable HOY, ARLETH M Unavailable Unavailable HOY, ARLETH M Unavailable Unavailable HOY, ARLETH M Unavailable Unavailable DAX KINNEY Unavailable Unavailab le HOY, ARLETH M Unavailable Unavailable IVANAUSKAS, SAULIUS Unavailable Unavailable HOY, ARLETH M Unavailable Unavailable ISIDORO FARHAD L Unavailable Unavailable Kevin Lane Referring Unavailable Kevin Lane Attending Unavailable Kevin Lane Admitting Unavailable HOY, ARLETH Primary Care Unavailable Kevin Lane Referring Unavailable Kevin Lane Attending Unavailable Kevin Lane Admitting Unavailable HOY, ARLETH Primary Care Unavailable Kevin Lane Attending Unavailable Kevin Lane Admitting Unavailable HOY, ARLETH Primary Care Unavailable HOY, ARLETH Referring Unavailable Kevin Lane Admitting Unavailable Kevin Lane Attending Unavailable HOY, ARLETH Primary Care Unavailable HOY, ARLETH Referring Unavailable HOY, ARLETH Primary Care Unavailable STEENHOFFROBERTARIADNE Admitting Unavailable ARIADNE SAINI Attending Unavailable SELF, REFERRED Referring Unavailable GeocingKevin Attending Unavailable Gehling, Kevin Admitting Unavailable NASIR THACKER Referring Unavailable HOY, ARLETH Primary Care Unavailable Kevin Lane Attending Unavailable Gehling, Kevin Admitting Unavailable HOY, ARLETH Primary Care Unavailable HOY, ARLETH Referring Unavailable GehlingPepeel Referring Unavailable GehlingKevin Attending Unavailable Gehling, Kevin Admitting Unavailable SELF, REFERRED Primary Care Unavailable Geocing, Kevin Referring Unavailable GeocingKevin Attending Unavailable Gehling, Kevin Admitting Unavailable SELF, REFERRED Primary Care Unavailable SELF, REFERRED Primary Care Unavailable FORSHEY, JORDEN D Admitting Unavailable FORSQASIMY JORDEN D Attending Unavailable SELF, REFERRED Referring Unavailable SELF, REFERRED Primary Care Unavailable FORSHEY, JORDEN D Admitting Unavailable FORSQASIMY, JORDEN D Attending Unavailable SELF, REFERRED Referring Unavailable SELF, REFERRED Referring Unavailable MadayingKevin Attending Unavailable Gehling, Kevin Admitting Unavailable SELF, REFERRED Primary Care Unavailable Geocing, Kevin Admitting Unavailable GeocingKevin Attending Unavailable HOY, ARLETH Primary Care Unavailable HOY, ARLETH Referring Unavailable Gehling, Kevin Attending Unavailable Gehling, Kevin Admitting Unavailable SELF, REFERRED Primary Care Unavailable SELF, REFERRED Referring Unavailable SELF, REFERRED Primary Care Unavailable FORSHEY, JORDEN D Admitting Unavailable FORSQASIMY, JORDEN D Attending Unavailable SELF, REFERRED Referring Unavailable SELF, REFERRED Primary Care Unavailable Kevin Lane Attending Unavailable Gehling, Kevin Admitting Unavailable SELF, REFERRED Referring Unavailable Malachi Acharyalas Primary Care Physician [phone] ORTIZ Consulting Unavailable NICK [...] REINOSO Admitting Unavailable HOY ., DR REINOSO Admitting Unavailable HOY ., DR REINOSO Primary Care Unavailable HOY ., DR REINOSO Consulting Unavailable HOY ., DR REINOSO Attending Unavailable ZIEBER, DR RUSSELL Goss Consulting Unavailable FREDO, [facility] Primary Care Unavailable FREDO, NICK Attending Unavailable FREDO, NICK Admitting Unavailable ZIEBER, DR RUSSELL Goss Consulting Unavailable FREDO, NICK Consulting Unavailable HOY ., DR REINOSO Consulting Unavailable HOY ., DR ARLETH Ho Unavailable HOY ., DR REINOSO Primary Care [...] HEATON Attending Unavailable GENNA HEATON Admitting Unavailable HOY ., DR REINOSO Primary Care Unavailable GENNA HEATON Consulting Unavailable RONDA, VEDA Consulting Unavailable HOY ., DR REINOSO Primary Care Unavailable KAVITHAY ., DR REINOSO Admitting Unavailable HOY ., DR REINOSO Attending Unavailable HAWKINS ., DR ORTIZ Consulting Unavailable NICK YOO Primary Care Unavailable HAWKINS ., DR ORTIZ Admitting Unavailable HAWKINS ., DR ORTIZ Attending Unavailable JORDEN ECHOLS Consulting Unavailable MARAH CHATMAN Consulting Unavailable MD Arleth Acharya Primary Care Provider [phone] MD Arleth Acharya Referring Provider DO Calderón Attending Provider Osiris Calderón Admitting Unavail able Osiris Calderón Attending Unavail able Hoy, Arleth M Referring Unavailable Hoy, Arleth M Primary Care Unavailable MD Arleth Acharya Primary Care Provider [phone] DO Antonio Attending Provider ARJUN MINER Attending Unavailable RUKHSANA MILLER Attending Unavailable MINER, ARJUN Attending Unavailable MINER, ARJUN Attending Unavailable MINER, ARJUN Referring Unavailable MINER, ARJUN Referring Unavailable MINER, ARJUN Referring Unavailable MINER, ARJUN Referring Unavailable MINER, ARJUN Attending Unavailable ANGELA, RUKHSANA Attending Unavailable ANGELA, RUKHSANA Attending Unavailable ANGELA, RUKHSANA Attending Unavailable MINER, ARJUN Attending Unavailable MINER, ARJUN Admitting Unavailable MINER, ARJUN Attending Unavailable HOY, ARLETH M Primary Care Unavailable NETO CONNELL Attending Unav ailable KO, NETO VERDUZCO Attending Unav ailable NETO CONNELL Referring Unav ailable HOY, ARLETH M Primary Care Unavailable HOY, ARLETH M Primary Care Unavailable IFRAH, CARISSA Attending Unavailable DIANA HAWKINS Referring Unavailable HOY, ARLETH M Primary Care Unavailable HOY, ARLETH M Referring Unavailable HOY, ARLETH M Primary Care Unavailable HOY, ARLETH M Primary Care Unavailable ADRI FRANK Attending Unavailable IFRAH, CARISSA Attending Unavailable IFRAH, CARISSA Referring Unavailable HOY, ARLETH M Primary Care Unavailable IFRAH, CARISSA Attending Unavailable RG, CARISSA Referring Unavailable HOY, ARLETH M Primary Care Unavailable ASIA SPENCER Referring Unavailable HOY, ARLETH M Primary Care Unavailable ASIA SPENCER Referring Unavailable ARLETH ACHARYA Primary Care Unavailable Diana HAWKINS Attending Unavailable Diana HAWKINS Attending Unavailable JOCELINE CHOI Attending Unavailable Diana HAWKINS Attending Unavailable Arleth Acharya Referring Unavailable Diana HAWKINS Admitting Unavailable Diana HAWKINS Attending Unavailable Diana HAWKINS Referring Unavailable Diana HAWKINS Attending Unavailable Allergies Allergy Classification Reported Allergen(s) Allergy Type Date of Onset Reaction(s) Facility (8 sources) ketorolac; Translations: [Toradol] Drug Allergy 05-29-20 15 Unknown (qualifier value) [facility] Repository (6 sources) meperidine; Translations: [Demerol HCl] Drug Allergy [facility] Repository (2 sources) Meperidine Drug Allergy 08-01-20 13 [facility] Repository (1 source) Desonide Drug Allergy [facility] Repository (4 sources) Ketorolac; Translations: [ketorolac] Drug Allergy 11-22-19 22 Unknown Reaction [facility] (5 sources) Meperidine; Translations: [meperidine] Drug Allergy 08-01-20 13 Unknown Reaction [facility] (5 sources) Prochlorperazin e; Translations: [prochlorperazi ne] Drug Allergy 02-12-20 23 Hallucinations (finding) [facility] (2 sources) Desonide; Translations: [DESONIDE] Drug Allergy 01-09-20 21 [facility] Repository (1 source) Ketorolac; Translations: [KETOROLAC TROMETHAMINE] Drug Allergy 04-09-20 17 [facility] Repository (1 source) No Known Medication Allergies; Translations: [No Known Medication Allergies] Propensity to adverse reactions (disorder) [facility] Repository Medications Current Medications Medication Drug Class(es) Dates Sig (Normalized) Sig (Original) acetaminophen 325 mg / HYDROcodone bitartrate 5 mg oral tablet (5 sources) Opioid Agonist Start: 09-24-2023 Lewellen 325 mg-5 mg oral tablet 1 tab(s), Oral, q12hr for pain, 20 tab(s), Refill(s) 0, 1 to 2 tabs every 4 to 6 hours as needed for pain, Pain, [id number], 167, cm, 09/13/23 12:07:00 EST, Height/Length Dosing, 70.5, kg, 09/13/23 12:07:00 EST, Weight Dosing Start Date: 09/24/23 Status: Ordered Start: 05-27-2023 take 1 tablet by mary th twice daily Hydrocodone-Acetaminophen Active 1 TAB P O Twice daily May 27, 2023 12:00am Start: 07-27-2022 Lewellen 325 mg-5 mg oral tablet 1 tab(s), Oral, BID Pain 8-10, 20 tab(s), Refill(s) 0, [facility] #[id number], 167, cm, 06/29/22 9:28:00 EDT, Height/Length Dosing, 69, kg, 06/29/22 9:28:00 EDT, Weight Dosing Start Date: 07/27/22 Status: Ordered Start: 06-29-2022 take 1 tablet by mary th every six hours Lewellen 325 mg-5 mg oral tablet tab(s), Or al, q6hr, Refill(s) 0 Start Date: 06/29/22 Status: Ordered Air Cast (1 source) Start: 01-06-2024 Air Cast Active 0 .Route 1 January 06, 2024 12:00am As directed amitriptyline hydrochloride 50 mg oral tablet (6 sources) Tricyclic Antidepressant Start: 05-27-2023 take 50 mg by mouth once daily at bedtime Amitriptyline Active 50 MG PO Daily at bedtime May 27, 2023 12:00am Start: 06-29-2022 take 1 mg by mouth o nce daily at bedtime amitriptyline 25 mg Tab mg tab(s), Oral, Once a day (at bedtime), Refills(s) 0 Start Date: 06/29/22 Status: Ordered calcium acetate (4 sources) Start: 06-29-2022 calcium acetate mg, Oral, Refills(s) 0 Start Date: 06/29/22 Status: Ordered calcium carbonate 1500 mg / cholecalciferol 200 unt oral tablet (2 sources) Vitamin D Start: 05-27-2023 take 1 tablet by mouth once daily Calcium Carbonate-Vitamin D3 (Calcium + D) 600 mg-5 mcg (200 unit) Tablet Active 1 TAB PO Daily May 27, 2023 12:00am cephalexin 500 mg oral capsule (1 source) Cephalosporin Antibacterial Start: 10-06-2023 take 1 capsule by mouth every twelve hours Keflex 500 mg Cap 500 mg = 1 cap(s), Oral, q12hr, # 20 cap(s), Refills(s) 0, Pharmacy: [facility] #[id number], 167, cm, 09/13/23 12:07:00 EST, Height/Length Dosing, 70.5, kg, 09/13/23 12:07:00 EST, Weight Dosing Start Date: 10/06/23 Status: Ordered citalopram 40 mg oral tablet (2 sources) Serotonin Reuptake Inhibitor Start: 10-23-2014 take 40 mg by mouth once daily Celexa 40 mg, Oral, Daily, Refills(s) 0, Depression Start Date: 10/23/14 Status: Ordered gabapentin 300 mg oral capsule (1 source) Anti-epileptic Agent Start: 01-06-2024 Gabapentin Active MG PO January 06, 2024 12:00am metoclopramide 10 mg oral tablet (2 sources) Dopamine-2 Receptor Antagonist Start: 05-27-2023 Metoclopramide Hcl (Reglan) 10 mg Tablet Active 10 MG PO As Directed May 27, 2023 12:00am Multivitamin (Multiple Vitamin) Tablet (2 sources) Start: 05-27-2023 take 1 tablet by mouth once daily Multivitamin (Multiple Vitamin) Tablet Active 1 TAB PO Daily May 27, 2023 12:00am Multivitamin preparation (4 sources) Start: 06-29-2022 multivitamin Daily, Refill(s) 0 Start Date: 06/29/22 Status: Ordered oxyCODONE hydrochloride 5 mg oral tablet (2 sources) Opioid Agonist Start: 09-13-2023 oxyCODONE 5 mg Tab Refills(s) 0 Start Date: 09/13/23 Status: Ordered pantoprazole 40 mg delayed release oral tablet (6 sources) Proton Pump Inhibitor Start: 05-27-2023 take 1 tablet by mouth once daily Pantoprazole (Protonix) 40 mg Tablet,Delayed Release (Dr/Ec) Active 40 MG PO Daily May 27, 2023 12:00am Start: 10-23-2014 take 40 mg by mouth once daily pantoprazole 40 mg, Oral, Daily, Refills(s) 0, Control of stomach acid Start Date: 10/23/14 Status: Ordered promethazine hydrochloride 25 mg oral tablet (6 sources) Phenothiazine Start: 05-27-2023 take 25 mg by mouth every four to six hours Promethazine Active 25 MG PO EVERY 4-6 HOURS May 27, 2023 12:00am Start: 06-29-2022 take 1 mg rectal rou te every six hours promethazine 25 mg Supp mg supp, Rectal, q6hr, Refills(s) 0 Start Date: 06/29/22 Status: Ordered sucralfate 1000 mg oral tablet (2 sources) Aluminum Complex Start: 05-27-2023 take 1 tablet by mouth four times daily Sucralfate (Carafate) 1 gram Tablet Active 1 GM PO Four times daily May 27, 2023 12:00am SUMAtriptan 100 mg oral tablet (2 sources) Serotonin-1b and Serotonin-1d Receptor Agonist Start: 09-13-2023 SUMAtriptan 100 mg Tab Refills(s) 0 Start Date: 09/13/23 Status: Ordered tiZANidine 4 mg oral tablet (6 sources) Central alpha-2 Adrenergic Agonist Start: 05-27-2023 take 8 mg by mouth once daily at bedtime Tizanidine Active 8 MG PO Daily at bedtime May 27, 2023 12:00am Start: 06-29-2022 take 1 mg by mouth t hree times daily Zanaflex 4 mg oral capsule mg cap(s), Oral, TID, Refills(s) 0 Start Date: 06/29/22 Status: Ordered topiramate 50 mg oral tablet (1 source) Start: 01-06-2024 Topiramate Act zohaib MG PO January 06, 2024 12:00am vitamin b12 1 mg/ml injectable solution (6 sources) Vitamin B12 Start: 05-27-2023 inject 1000 ug by intramuscular injection every 30 days Cyanocobalamin (Vitamin B-12) Active 1000 MCG IM Q30D May 27, 2023 12:00am Start: 06-29-2022 Vitamin B12 Re fills(s) 0 Start Date: 06/29/22 Status: Ordered Completed/Discontinued Medications Medication Drug Class(es) Dates Sig (Normalized) Sig (Original) ferrous sulfate 325 mg oral tablet (2 sources) Start: 05-27-2023 End: 05-28-2023 take 325 mg by mouth once daily Ferrous Sulfate Discontinued 325 MG PO Daily May 27, 2023 12:00am May 28, 2023 11:26am hyoscyamine sulfate 0.125 mg sublingual tablet (2 sources) Start: 05-27-2023 End: 05-28-2023 take 0.125 mg under the tongue every six hours Hyoscyamine Sulfate Discontinued 0.125 MG SUBLINGUAL Q6H May 27, 2023 12:00am May 28, 2023 11:06am Problems Active Problems Problem Classification Problem Date Documented Da te Episodic/Chronic Abdominal pain (20 sources) Unspecified abdominal pain; Translations: [Abdominal pain] Onset: 06-13-2018 Episodic Anxiety disorders (5 sources) Anxiety; Translations: [Anxiety disorder, unspecified] Onset: 09-10-2022 06-26-2022 Chronic Calculus of urinary tract (16 sources) Calculus of kidney; Translations: [Kidney stone] [...] Complications of surgical procedures or medical care (2 sources) Other complications of other bariatric procedure; Translations: [Iron deficiency anemia] Onset: 06-28-2023 10-27-2023 Episodic Deficiency and other anemia (1 source) Other iron deficiency anemias; Translations: [Other iron deficiency anemias] Onset: 06-28-2023 Episodic Esophageal disorders (1 source) Esophageal disorders; Translations: [Gastro-esophageal reflux disease with esophagitis, without bleeding] Onset: 11-08-2023 Essential hypertension (1 source) Essential (primary) hypertension; Translations: [ESSENTIAL PRIMARY HYPERTENSION] Onset: 01-27-2023 Chronic Gastritis and duodenitis (1 source) Gastritis, unspecified, without bleeding; Translations: [Gastritis, unspecified, without bleeding] Onset: 03-01-2024 Episodic Genitourinary congenital anomalies (2 sources) Congenital occlusion of ureteropelvic junction; 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, unspecified] Onset: 08-05-2022 Chronic Genitourinary symptoms and ill-defined conditions (18 sources) Blood in urine; Translations: [Gross hematuria] Onset: 06-29-2022 Episodic Genitourinary symptoms and ill-defined conditions (1 source) Other microscopic hematuria; Translations: [Other microscopic hematuria] Onset: 02-26-2018 Mood disorders (5 sources) Depressive disorder; Translations: [Major depressive disorder, single episode, unspecified] Onset: 08-05-2022 06-26-2022 Chronic Mood disorders (1 source) Mood disorders; Translations: [DEPRESSION UNSPECIFIED] Onset: 01-27-2023 Nausea and vomiting (6 sources) Nausea with vomiting, unspecified; Translations: [Vomiting, unspecified] Onset: 01-25-2023 Episodic Osteoarthritis (5 sources) Unilateral primary osteoarthritis, left knee; Translations: [UNILATERAL PRIMARY OSTEOARTHRITIS, LEFT KNEE] Onset: 10-06-2021 Chronic Other aftercare (5 sources) Aftercare following joint replacement surgery; Translations: [AFTERCARE FOLLOWING JOINT REPLACEMENT SURGERY] Onset: 12-09-2021 Chronic Other aftercare (1 source) 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) use of aspirin; Translations: [MCFP (CURRENT) USE OF ASPIRIN] Onset: 06-03-2022 Episodic Other aftercare (2 sources) Other care home (current) drug therapy; Translations: [OTHER THREAD DRAWER (CURRENT) DRUG THERAPY] Onset: 08-12-2021 Episodic Other [...] 01-27-2023 Chronic Other gastrointestinal disorders (1 source) Intestinal malabsorption, unspecified; Translations: [Intestinal malabsorption, unspecified] Onset: 11-08-2023 Chronic Other gastrointestinal disorders (1 source) Drug induced constipation; Translations: [Drug induced constipation] Onset: 12-10-2023 Episodic Other nervous system disorders (2 sources) [...] Onset: 10-14-2017 Episodic Other non-traumatic joint disorders (4 sources) Pain in left knee; Translations: [PAIN IN LEFT KNEE] Onset: 06-03-2022 Episodic Other non-traumatic joint disorders (1 source) Effusion, left knee; Translations: [EFFUSION, LEFT KNEE] Onset: 04-07-2022 Episodic Other nutritional; endocrine; and metabolic disorders (4 sources) Morbid obesity 10-24-2014 Chronic Other nutritional; [...] DEPENDENCE] Onset: 06-01-2022 Episodic Sprains and strains (2 sources) Strain of muscle, fascia and tendon of lower back, initial encounter; Translations: [Sprain of unspecified ligament of left ankle, initial encounter] Onset: 10-09-2018 01-06-2024 Episodic Unclassified (1 source) C/O POST OP RECHECK - LEFT KNEE. Onset: 06-03-2022 Unclassified (1 source) C/O POST OP RECHECK - LEFT KNEE Onset: 06-03-2022 Unclassified (4 sources) Asymptomatic microscopic hematuria 06-29-2022 Unclassified (1 source) PERSONAL HISTORY OF COVID-19; Translations: [PERSONAL HISTORY OF COVID-19] Onset: 01-27-2023 Unclassified (4 sources) CONTACT W/AND (SUSP) EXPOS COVID-19; Translations: [CONTACT W/AND (SUSP) EXPOS COVID-19] Onset: 08-27-2022 Unclassified (1 source) COUGH, UNSPECIFIED; Translations: [COUGH, UNSPECIFIED] Onset: 09-24-2022 Unclassified (2 sources) Presence of neurostimulator; Translations: [Presence of neurostimulator] Onset: 05-04-2023 Unclassified (1 source) Abdominal Pain, Vomitting Onset: 12-10-2023 Urinary tract infections (4 sources) Urinary tract infection, site not specified; Translations: [UTI SITE NOT SPECIFIED] Onset: 01-21-2023 Episodic Viral infection (1 source) COVID-19; Translations: [COVID-19] Onset: 10-09-2022 Past or Other Problems Problem Classification Problem Date Documented Da te Episodic/Chronic Deficiency and other anemia (1 source) Iron deficiency anemia, unspecified; Translations: [Iron deficiency anemia, unspecified] Onset: 11-08-2023 Episodic Fluid and electrolyte disorders (1 source) Hypokalemia; Translations: [Hypokalemia] Onset: 11-08-2023 Episodic Malaise and fatigue (1 source) Other fatigue; Translations: [OTHER FATIGUE] Onset: 10-07-2022 Episodic Nutritional deficiencies (1 source) Thiamine deficiency, unspecified; Translations: [Thiamine deficiency, unspecified] Onset: 11-08-2023 Episodic Other aftercare (3 sources) Encounter for other specified surgical aftercare; Translations: [ENCOUNTER FOR OTHER SPECIFIED SURGICAL AFTERCARE] Onset: 01-09-2022 Episodic Other gastrointestinal disorders (2 sources) Bariatric surgery status; Translations: [BARIATRIC SURGERY STATUS] Onset: 01-27-2023 Episodic Other non-traumatic joint disorders (3 sources) [...] sources) Pain, unspecified; Translations: [Pain, unspecified] Onset: 02-11-2023 Episodic Unclassified (1 source) CONTACT W/AND (SUSP) EXPOS COVID-19; Translations: [CONTACT W/AND (SUSP) EXPOS COVID-19] Onset: 10-06-2022 Results Test Name Value Interpretation Reference Range Facility [facility] 02-22-2024 Lab Reports [id number] Normal [facility] 02-18-2024 Lab Reports [id number] Normal [facility] 02-17-2024 Lab Reports [id number] Normal [facility] 24 HR PHOSPHORUS,URINEon URINE PHOSPHORUS 0.8 g/24h Normal 0.4-1.3 [facility] Comment on above: Performed By: #### U PO4 ####[facility] ([id number])0 [facility], [address] [place] [address] 24 HR UR MAGNESIUMon 024 URINE MAGNESIUM 116 mg/24h Normal 72-182 [facility] Comment on above: Performed By: #### U CA, UCR, UMAG, DARLEEN, UUA ####[facility] ([id number])[address] [address] 24 HR URINE CALCIUMon 2023 URINE CALCIUM 134 mg/24h Normal 50-250 [facility] Comment on above: Performed By: #### U CA, UCR, UMAG, DARLEEN, UUA ####[facility] ([id number])[address] [address] 24 HR URINE CREATININEon URINE CREATININE 0.88 g/24h Normal 0.80-1.80 [facility] Comment on above: Performed By: #### U CA, UCR, UMAG, DARLEEN, UUA ####[facility] ([id number])[address] [address] 24 HR URINE SODIUMon 024 URINE SODIUM 189 mmol/24h Normal 40-220 [facility] Comment on above: Performed By: #### U CA, UCR, UMAG, DARLEEN, UUA ####[facility] ([id number])[address] [address] 24 HR URINE URIC ACIDon URINE URIC ACID 0.4 g/24h Normal 0.3-0.8 [facility] Comment on above: Performed By: #### U CA, UCR, UMAG, DARLEEN, UUA ####[facility] ([id number])[address] [address] BLOOD UREA NITROGENon 2023 Urea nitrogen [Mass/Vol] 9 mg/dL Normal 5-23 [facility] Comment on above: Performed By: #### C BCA, CMP #### [facility] ([id number]) [address] [place] [address], [place] [address] CALCIUMon 02-15-2024 Calcium [Mass/Vol] 9.0 mg/dL Normal 8.5-10.5 [facility] Comment on above: Performed By: #### C BCA, CMP #### [facility] ([id number]) [address] [place] [address] CARBON DIOXIDEon 02-15-2024 CO2 [Moles/Vol] 22 mmol/L Normal 22-32 [facility] Comment on above: Performed By: #### C BCA, CMP #### [facility] ([id number]) [address] [place] [address] CHLORIDEon 02-15-2024 Chloride [Moles/Vol] 111 mmol/L High 98-109 [facility] Comment on above: Performed By: #### C BCA, CMP #### [facility] ([id number]) [address] [place] [address] CITRIC ACID URINEon 02-15-20 24 CITRIC ACID,24H UR 550 mg/d Normal 320-1240 [facility] Comment on above: Performed By: #### 3 094-0, 26026-2, , 2028-06, PAYROLL CLERK, 2951- 2, 2777-1, 3084-1, 2731-8 ####[facility] ([id number])2130 [facility], [address] [place] [address]#### CITACU ####[facility] ([id number])[address] [place] [address] CITRIC ACID,UR,VOL 611 mg/L Normal [facility] Comment on above: Performed By: #### 3 094-0, 17889-1, 0, 2028-06, PAYROLL CLERK, 2951- 2, 2777-1, 3084-1, 2731-8 ####[facility] ([id number])2130 [facility], [address] [place] [address]#### CITACU ####[facility] ([id number])[address] [place] [address] CITRIC/CREAT RATIO 593 mg/g Normal >=150 [facility] Comment on above: Result Comment: NOTE INTERPRETIVE INFORMATION: Citric Acid, Urine This test was developed and its performance characteristics determined by [facility]. It has not been cleared or approved by the [place] Food and Drug Administration. This test was performed in a CLIA certified laboratory and is intended for clinical purposes. Performed By: [facility] [address] [place] [address] Capsule Filling Machine Operator: Luca Mosquera MD, PhD CLIA Number: [id number] Performed By: #### 3 094-0, 30361-4, 0, 2028-06, PAYROLL CLERK, 2951-2, 2777-1, 3084-1, 2731-8 ####[facility] ([id number])2130 [facility], [address] [address]#### CITACU ####[facility] ([id number])[address] [place] [address] 59745 CREATININE,24H URINE 927 mg/d Normal 700-1600 [facility] Comment on above: Performed By: #### 3 094-0, 06236-9, 0, 2028-06, PAYROLL CLERK, 2951- 2, 2777-1, 3084-1, 273-8 ####[facility] ([id number])2130 [facility], [address] [address]#### CITACU ####[facility] ([id number])[address] [place] [address] 28159 CREATININE,UR,VOL 103 mg/dL Normal [facility] Comment on above: Performed By: #### 3 094-0, 22992-9, 0, 2028-06, PAYROLL CLERK, 2951- 2, 2777-1, 3084-1, 2731-8 ####[facility] ([id number])2130 [facility], [address] [place] [address]#### CITACU ####[facility] ([id number])[address] [place] [address] 52021 HOURS COLLECTED 24 Normal [facility] Comment on above: Performed By: #### 3 094-0, 84587-0, 2074-0, 2028-06, PAYROLL CLERK, 2951- 2, 2777-1, 3084-1, 2731-8 ####[facility] ([id number])2130 [facility], [address] [place] [address]#### CITACU ####[facility] ([id number])[address] [place] [address] 58999 TOT VOLUME-24H URINE 900 Normal [facility] Comment on above: Performed By: #### 3 094-0, 92201-1, 2074-0, 2028-06, PAYROLL CLERK, 2951- 2, 2777-1, 3084-1, 2731-8 ####[facility] ([id number])2130 [facility], [address] [place] [address]#### CITACU ####[facility] ([id number])[address] [place] [address] 63192 CREATININEon 02-15-2024 Creatinine [Mass/Vol] 0.70 mg/dL Normal 0.40-1.00 [facility] Comment on above: Result Comment: METH OD TRACEABLE TO IDMS STANDARD Performed By: #### C BCA, CMP #### [facility] ([id number]) [address] [place] [address] 54484 eGFR (CKD-EPI) NON-RACE DEPENDENT >90 Normal >59 [facility] Comment on above: Result Comment: Reported eGFR is based on the CKD-EPI 2020 equation that does not use a race coefficient. Performed By: #### C BCA, CMP #### [facility] ([id number]) [address] [place] [address] 15638 OXALATE, TOTAL URINEon 02-14 CREATININE,24H URINE 945 mg/d Normal 700-1600 [facility] Comment on above: Result Comment: NOTE Performed By: [facility] [address] [place] [address] Capsule Filling Machine Operator: Luca Mosquera MD, PhD CLIA Number: [id number] Performed By: #### O XALTU ####[facility] ([id number])[address] [place] [address] 91200 CREATININE,UR,VOL 105 mg/dL Normal [facility] Comment on above: Performed By: #### O XALTU ####[facility] ([id number])[address] [place] [address] 51539 HOURS COLLECTED 24 Normal [facility] Comment on above: Performed By: #### O XALTU ####[facility] ([id number])[address] [place] [address] 34111 OXALATE, PER VOLUME 32 mg/L Normal [facility] Comment on above: Performed By: #### O XALTU ####[facility] ([id number])[address] [place] [address] 02427 OXALATE,URINE/24H 29 mg/d Normal 13-40 [facility] Comment on above: Result Comment: NOTE REFERENCE INTERVAL: Oxalate, Urine - per 24h Access complete set of age- and/or gender-specific reference intervals for this test in the [facility] Test Directory ([employer]). This test was developed and its performance characteristics determined by [facility]. It has not been cleared or approved by the [place] Food and Drug Administration. This test was performed in a CLIA certified laboratory and is intended for clinical purposes. Performed By: #### O XALTU ####[facility] ([id number])[address] [place] [address], [place] [address] TOT VOLUME-24H URINE 900 Normal [facility] Comment on above: Performed By: #### O XALTU ####[facility] ([id number])[address] [place] [address] [place] [address] PHOSPHORUSon 02-15-2024 Phosphate [Mass/Vol] 3.7 mg/dL Normal 2.4-4.9 [facility] Comment on above: Performed By: #### C BCA, CMP #### [facility] ([id number]) [address] [place] [address] 53288 Parathyrin.intact [Mass/Vol] on 02-15-2024 PTH INTACT 65 pg/mL Normal 12-88 [facility] Comment on above: Performed By: #### C GALEN, CMP #### [facility] ([id number]) [address] [place] [address] 52994 SODIUMon 02-15-2024 Sodium [Moles/Vol] 141 mmol/L Normal 134-146 [facility] Comment on above: Performed By: #### C BCA, CMP #### [facility] ([id number]) [address] [place] [address] [place] [address] URIC ACIDon 02-15-2024 Urate [Mass/Vol] 3.6 mg/dL Normal 2.6-7.2 [facility] Comment on above: Performed By: #### C BCA, CMP #### [facility] ([id number]) [address] [place] [address] 85152 URINE VOLUME AND TIMEon TIME 24 h Normal [facility] Comment on above: Performed By: #### C BCA, CMP #### [facility] ([id number]) [address] [place] [address] 38311 TOTAL VOLUME 900 mL Normal [facility] Comment on above: Performed By: #### C BCA, CMP #### [facility] ([id number]) [address] [place] [address] 19543 TIME 24 h Normal [facility] Comment on above: Performed By: #### U PO4 ####[facility] ([id number])[address], [address] [address] Performed By: #### O XALTU ####[facility] ([id number])[address] [place] [address] Performed By: #### U CA, UCR, UMAG, DARLEEN, UUA ####[facility] ([id number])[address], [place] [address] TOTAL VOLUME 900 mL Normal [facility] Comment on above: Performed By: #### U PO4 ####[facility] ([id number])[address], [address] [address] Performed By: #### O XALTU ####[facility] ([id number])[address] [place] [address] Performed By: #### U CA, UCR, UMAG, DARLEEN, UUA ####[facility] ([id number])[address], [place] [address] Orders Onlyon 02-04-2024 Orders Only [id number] Blojarek,Tabat ma 1980 F Date Provider Department Center 02/04/2024 RUKHSANA ESPINOZA MP [facility] Family History Problem Relation Age of Onset Brain cancer Mother Breast cancer Sister Kidney cancer Maternal Grandmother Prostate cancer Paternal Grandfather Cancer Father Cancer Sister Family Status - Relation Status Age at Mother Sister Maternal Grandmother Paternal Grandfather Father Sister Normal [facility] Orders Onlyon 01-19-2024 Orders Only [id number] Blody,Tabat ma 1980 F Date Provider Department Center 01/19/2024 RUKHSANA ESPINOZA MP [facility] Family History Problem Relation Age of Onset Brain cancer Mother Breast cancer Sister Kidney cancer Maternal Grandmother Prostate cancer Paternal Grandfather Cancer Father Cancer Sister Family Status - Relation Status Age at Mother Sister Maternal Grandmother Paternal Grandfather Father Sister Normal [facility] 36on 01-06-2024 36 I called patient and left a voicemail and advice to be seen in ED. Normal [facility] Follow-Upon 12-24-2023 Follow-Up [id number] Madyson Moore 1980 F Date Provider Department Center 12/24/2023 170-RUKHSANA MILLER MP PA[facility] Family History Problem Relation Age of Onset Brain cancer Mother Breast cancer Sister Kidney cancer Maternal Grandmother Prostate cancer Paternal Grandfather Cancer Father Cancer Sister Family Status - Relation Status Age at Mother Sister Maternal Grandmother Paternal Grandfather Father Sister Level of Service:05492 [place] OFFICE/OUTPATIENT ESTABLISHED LOW MDM 20 MIN Reason for Visit and Comments: Follow-up [787991] - Chief complaint : L knee Normal [facility] CBC AND AUTO DIFFon 12-10-19 24 ABSOLUTE BASOPHIL 0.0 X10E9/L Normal 0.0-0.2 [facility] Comment on above: Performed By: #### C BCA, CMP #### [facility] ([id number]) [address] [place] [address] 51689 ABSOLUTE NEUTROPHIL 6.4 X10E9/L Normal 1.5-6.6 [facility] Comment on above: Performed By: #### C BCA, CMP #### [facility] ([id number]) [address] [place] [address] 06260 Basophils/100 WBC (Bld) 0.3 % Normal [facility] Comment on above: Performed By: #### C BCA, CMP #### [facility] ([id number]) [address] [place] [address] 95306 Eosinophils (Bld) [#/Vol] 0.0 10*3/uL Normal 0.0-0.4 [facility] Comment on above: Performed By: #### C BCA, CMP #### [facility] ([id number]) [address] [place] [address] 01335 Eosinophils/100 WBC (Bld) 0.4 % Normal [facility] Comment on above: Performed By: #### C GALEN, CMP #### [facility] ([id number]) [address] [place] [address] 23501 Erythrocyte distribution width (RBC) [Ratio] 13.7 % Normal 11.5-15.0 [facility] Comment on above: Performed By: #### C BCA, CMP #### [facility] ([id number]) [address] [place] [address] 34871 Hematocrit (Bld) [Volume fraction] 41.2 % Normal 35-47 [facility] Comment on above: Performed By: #### C GALEN, CMP #### [facility] ([id number]) [address] [place] [address] 49273 Hemoglobin (Bld) [Mass/Vol] 13.7 g/dL Normal 11.7-15.5 [facility] Comment on above: Performed By: #### C GALEN, CMP #### [facility] ([id number]) [address] [place] [address] 98484 Lymphocytes (Bld) [#/Vol] 2.8 10*3/uL Normal 1.0-3.5 [facility] Comment on above: Performed By: #### C BCA, CMP #### [facility] ([id number]) [address] [place] [address] 14545 Lymphocytes/100 WBC (Bld) 28.3 % Normal [facility] Comment on above: Performed By: #### C BCA, CMP #### [facility] ([id number]) [address] [place] [address] 76250 MCH (RBC) [Entitic mass] 29.8 pg Normal 27-34 [facility] Comment on above: Performed By: #### C BCA, CMP #### [facility] ([id number]) [address] [place] [address] 08090 MCHC (RBC) [Mass/Vol] 33.4 g/dL Normal 32-36 [facility] Comment on above: Performed By: #### C GALEN, CMP #### [facility] ([id number]) [address] [place] [address] 28361 MCV (RBC) [Entitic vol] 89 fL Normal 80-100 [facility] Comment on above: Performed By: #### C BCA, CMP #### [facility] ([id number]) [address] [place] [address] 17486 Monocytes (Bld) [#/Vol] 0.6 10*3/uL Normal 0-0.9 [facility] Comment on above: Performed By: #### C GALEN, CMP #### [facility] ([id number]) [address] [place] [address] 13673 Monocytes/100 WBC (Bld) 5.9 % Normal [facility] Comment on above: Performed By: #### C GALEN, CMP #### [facility] ([id number]) [address] [place] [address] 99457 Neutrophils/100 WBC (Bld) 65.1 % Normal [facility] Comment on above: Performed By: #### C GALEN, CMP #### [facility] ([id number]) [address] [place] [address] 73778 Platelet mean volume (Bld) [Entitic vol] 7.1 fL Normal 7-12 [facility] Comment on above: Performed By: #### C BCA, CMP #### [facility] ([id number]) [address] [place] [address] 45868 Platelets (Bld) [#/Vol] 329 10*3/uL Normal 150-450 [facility] Comment on above: Performed By: #### C BCA, CMP #### [facility] ([id number]) [address] [place] [address] 07951 RBC COUNT 4.60 X10E12/L Normal 3.80-5.20 [facility] Comment on above: Performed By: #### C BCA, CMP #### [facility] ([id number]) [address] [place] [address] 09818 WBC (Bld) [#/Vol] 9.8 10*3/uL Normal 4.0-11.0 [facility] Comment on above: Performed By: #### C BCA, CMP #### [facility] ([id number]) [address] [place] [address] 09038 COMPREHENSIVE METABOLIC PANE [facility] 12-10-2023 Albumin [Mass/Vol] 4.6 g/dL Normal 3.2-5.3 [facility] Comment on above: Performed By: #### C BCA, CMP #### [facility] ([id number]) [address] [place] [address] 58217 ALP [Catalytic activity/Vol] 80 U/L Normal 39-130 [facility] Comment on above: Performed By: #### C BCA, CMP #### [facility] ([id number]) [address] [place] [address] 45171 ALT [Catalytic activity/Vol] 23 U/L Normal 0-31 [facility] Comment on above: Performed By: #### C BCA, CMP #### [facility] ([id number]) [address] [place] [address] 67361 Anion gap [Moles/Vol] 6 mmol/L Normal 5-15 [facility] Comment on above: Performed By: #### C BCA, CMP #### [facility] ([id number]) [address] [place] [address] 57800 AST [Catalytic activity/Vol] 20 U/L Normal 0-41 [facility] Comment on above: Performed By: #### C BCA, CMP #### [facility] ([id number]) [address] [place] [address] 46581 Bilirubin [Mass/Vol] 0.3 mg/dL Normal 0.3-1.2 [facility] Comment on above: Performed By: #### C BCA, CMP #### [facility] ([id number]) [address] [place] [address] 39954 Calcium [Mass/Vol] 8.5 mg/dL Normal 8.5-10.5 [facility] Comment on above: Performed By: #### C BCA, CMP #### [facility] ([id number]) [address] [place] [address] 29829 Chloride [Moles/Vol] 105 mmol/L Normal 98-109 [facility] Comment on above: Performed By: #### C BCA, CMP #### [facility] ([id number]) [address] [place] [address] 67707 CO2 [Moles/Vol] 27 mmol/L Normal 22-32 [facility] Comment on above: Performed By: #### C BCA, CMP #### [facility] ([id number]) [address] [place] [address] 84630 Creatinine [Mass/Vol] 0.59 mg/dL Normal 0.40-1.00 [facility] Comment on above: Result Comment: METH OD TRACEABLE TO IDMS STANDARD Performed By: #### C BCA, CMP #### [facility] ([id number]) [address] [place] [address] 60839 eGFR (CKD-EPI) NON-RACE DEPENDENT >90 Normal >59 [facility] Comment on above: Result Comment: Reported eGFR is based on the CKD-EPI 2020 equation that does not use a race coefficient. Performed By: #### C BCA, CMP #### [facility] ([id number]) [address] [place] [address] 27026 Glucose [Mass/Vol] 100 mg/dL High 65-99 [facility] Comment on above: Performed By: #### C BCA, CMP #### [facility] ([id number]) [address] [place] [address] 61790 Potassium [Moles/Vol] 3.5 mmol/L Normal 3.5-5.0 [facility] Comment on above: Performed By: #### C BCA, CMP #### [facility] ([id number]) [address] [place] [address] 25912 Protein [Mass/Vol] 7.8 g/dL Normal 6.0-8.0 [facility] Comment on above: Performed By: #### C BCA, CMP #### [facility] ([id number]) [address] [place] [address] 17638 Sodium [Moles/Vol] 138 mmol/L Normal 134-146 [facility] Comment on above: Performed By: #### C BCA, CMP #### [facility] ([id number]) [address] [place] [address] 59815 Urea nitrogen [Mass/Vol] 19 mg/dL Normal 5-23 [facility] Comment on above: Performed By: #### C BCA, CMP #### [facility] ([id number]) [address] [place] [address] ABDOMEN AND PELVIS W CONT on 12-10-2023 CT ABDOMEN AND PELVIS W CONT CT ABDOMEN AND PELVIS W CONT History: Epigastric and upper abdominal pain. Vomiting Exam/Technique: Abdomen and pelvis CT imaging is performed with IV contrast. Comparison: 10/13/2023 contrast-enhanced CT of the abdomen and pelvis Findings: There is no evidence of active pulmonary disease in the lung bases. The liver, spleen, pancreas, adrenal glands, and kidneys display no significant abnormalities. The abdominal aorta is of normal caliber throughout its length. There is moderate prominence retained fecal material from the cecum through the sigmoid colon colon. The ascending and transverse colon are mildly distended. There is no free intraperitoneal fluid or gas, and no gross abnormal fluid collections. There are no gross abnormalities of the unopacified urinary bladder suggested. The patient is status post hysterectomy with neither ovary identified. IMPRESSION: * Moderate fecal loading displayed. * Postsurgical changes with no other acute abnormalities. All CT scans at this facility use dose modulation, iterative reconstruction, and/or weight based dosing when appropriate to reduce radiation dose to as low as reasonably achievable. Finalized by Sathya Gates MD on 12/10/2023 2:08 AM Normal [facility] HCG ( test) Ql (U)o n 12-10-2023 Beta HCG ( test) Ql (U) Negative Normal NEG [facility] Comment on above: Performed By: #### C BCA, CMP #### [facility] ([id number]) [address] [place] [address] 92535 LIPASEon 12-10-2023 Lipase [Catalytic activity/Vol] 98 U/L High 17-40 [facility] Comment on above: Performed By: #### C BCA, CMP #### [facility] ([id number]) [address] [place] [address] 83502 Lactate (P jaime) [Moles/Vol]o n 12-10-2023 LACTATE W/REFLEX 0.6 mmol/L Normal 0.4-2.0 [facility] Comment on above: Result Comment: Result did not trigger repeat Lactate, re-order if needed. Performed By: #### C BCA, CMP #### [facility] ([id number]) [address] [place] [address] 99195 TROPONIN Ion 12-10-2023 Troponin I.cardiac [Mass/Vol] 0.02 ng/mL Normal 0.00-0.04 [facility] Comment on above: Performed By: #### C BCA, CMP #### [facility] ([id number]) [address] [place] [address] 12321 URN MACROSCOPIC NURon 2023 BILIRUBIN JUNIOR Negative Normal NEG [facility] Comment on above: Performed By: #### C BCA, CMP #### [facility] ([id number]) [address] [place] [address] [place] [address] BLOOD/HGB JUNIOR Large Abnormal NEG [facility] Comment on above: Performed By: #### C BCA, CMP #### [facility] ([id number]) [address] [place] [address] [place] [address] GLUCOSE JUNIOR Negative Normal NEG [facility] Comment on above: Performed By: #### C BCA, CMP #### [facility] ([id number]) [address] [place] [address] [place] [address] KETONES JUNIOR Trace Abnormal NEG [facility] Comment on above: Performed By: #### C BCA, CMP #### [facility] ([id number]) [address] [place] [address] [place] [address] LEUKOCYTE ESTERASE JUNIOR Negative Normal NEG [facility] Comment on above: Performed By: #### C BCA, CMP #### [facility] ([id number]) [address] [place] [address], [place] [address] NITRITE JUNIOR Negative Normal NEG [facility] Comment on above: Performed By: #### C BCA, CMP #### [facility] ([id number]) [address] [place] [address], [place] [address] PH JUNIOR 6.0 Normal 5.0-8.5 [facility] Comment on above: Performed By: #### C BCA, CMP #### [facility] ([id number]) [address] [place] [address], [place] [address] PROTEIN JUNIOR Negative Normal NEG [facility] Comment on above: Performed By: #### C BCA, CMP #### [facility] ([id number]) [address] [place] [address], [place] [address] SPECIFIC GRAVITY JUNIOR >=1.030 Normal 1.003-1.035 [facility] Comment on above: Performed By: #### C GALEN, CMP #### [facility] ([id number]) [address] [place] [address] UROBILINOGEN JUNIOR 0.2 eu/dL Normal <1.1 [facility] Comment on above: Performed By: #### C GALEN, CMP #### [facility] ([id number]) [address] [place] [address] XR CHEST 1 VWon 12-10-2023 XR CHEST 1 VW XR CHEST 1 VW HISTORY: Nausea and vomiting. COMPARISON: 05/03/2018. TECHNIQUE: Single portable AP view of the chest. FINDINGS: The trachea is midline. The cardiomediastinal silhouette is stable. No focal consolidation, large pleural effusion, or pneumothorax. IMPRESSION: * No acute pulmonary process. Approved by Resident Jody Keith MD on 12/10/2023 1:53 AM I, Sathya Gates MD have personally reviewed the image(s) and agree with and/or edited the report Finalized by Sathya Gates MD on 12/10/2023 1:59 AM Normal [facility] Orders Onlyon 11-23-2023 Orders Only [id number] Madyson Moore ma 1980 F Date Provider Department Center 11/23/2023 RUKHSANA ESPINOZA PAIN [facility] Family History Problem Relation Age of Onset Brain cancer Mother Breast cancer Sister Kidney cancer Maternal Grandmother Prostate cancer Paternal Grandfather Cancer Father Cancer Sister Family Status - Relation Status Age at Mother Sister Maternal Grandmother Paternal Grandfather Father Sister Normal [facility] H. pylori Ag IA Ql (Stl)on 0 11-19-2023 H. PYLORI ANTG STOOL See Below Normal [facility] Comment on above: Result Comment: NOTE TEST RESULT FLAG UNIT REF.RANGE ---- EIA Test See Below Negative for H. Pylori antigen by EIA H.PYLORI EIA RESULT Negative for Helicobacter pylori antigen by EIA SOURCE: STOOL Test Performed By: [facility] [address] [place] [address] Capsule Filling Machine Operator: Anurag Seth III, M.D. CLIA #[id number] Performed By: #### C BCA, CMP #### [facility] ([id number]) [address] [place] [address] Gastrin [Mass/Vol]on 024 GASTRIN 62.9 pg/mL Normal <115.0 [facility] Comment on above: Result Comment: NOTE The Gastrin test was performed using the Siemens Immulite chemiluminescent immunometric method. Results obtained with different assay methods or kits cannot be used interchangeably. Test Performed By: [facility] [employer] [address] [place] [address] Capsule Filling Machine Operator: Anurag Seth III, M.D. CLIA #[id number] Performed By: #### 2 333-3 #### [facility] ([id number]) [address] [place] [address] Transfer Inon 11-05-2023 Transfer In [id number] Normal [facility] Follow-Upon 10-28-2023 Follow-Up [id number] Madyson Moore 1980 F Date Provider Department Center 10/28/2023 170-RUKHSANA MILLER PAIN Medical Pavi Family History Problem Relation Age of Onset Brain cancer Mother Breast cancer Sister Kidney cancer Maternal Grandmother Prostate cancer Paternal Grandfather Cancer Father Cancer Sister Family Status - Relation Status Age at Mother Sister Maternal Grandmother Paternal Grandfather Father Sister Level of Service:01321 [place] OFFICE/OUTPATIENT ESTABLISHED LOW MDM 20 MIN Reason for Visit and Comments: Knee Pain [373132] - left Normal [facility] 36on 10-20-2023 36 Approving, but needs appt for additional refills. [facility] Orders Onlyon 10-20-2023 Orders Only [id number] Madyson Moore ma 1980 F Date Provider Department Center 10/20/202305527-EJDBMITCHELL APARICIO MP PROC Medical Pavi Family History Problem Relation Age of Onset Brain cancer Mother Breast cancer Sister Kidney cancer Maternal Grandmother Prostate cancer Paternal Grandfather Cancer Father Cancer Sister Family Status - Relation Status Age at Mother Sister Maternal Grandmother Paternal Grandfather Father Sister [facility] Orders Onlyon 10-19-2023 Orders Only [id number] Madyson Moore ma 1980 F Date Provider Department Center 10/19/202329951-CZDQHG, IVI RHC RHEUM Arturo Heal Family History Problem Relation Age of Onset Brain cancer Mother Breast cancer Sister Kidney cancer Maternal Grandmother Prostate cancer Paternal Grandfather Cancer Father Cancer Sister Family Status - Relation Status Age at Mother Sister Maternal Grandmother Paternal Grandfather Father Sister [facility] 36on 10-18-2023 36 Patient is calling f or medication refill to be sent to pharmacy. Thank you [facility] BASIC METABOLIC PANLon 10-14 Anion gap [Moles/Vol] 10 mmol/L Normal 5-15 [facility] Comment on above: Performed By: #### B MP, LIVR, CBCA, 3040-3 #### [facility] ([id number]) [address] [place] [address] 86096 Calcium [Mass/Vol] 8.6 mg/dL Normal 8.5-10.5 [facility] Comment on above: Performed By: #### B MP, LIVR, CBCA, 3040-3 #### [facility] ([id number]) [address] [place] [address] 36829 Chloride [Moles/Vol] 100 mmol/L Normal 98-109 [facility] Comment on above: Performed By: #### B MP, LIVR, CBCA, 3040-3 #### [facility] ([id number]) [address] [place] [address] 48242 CO2 [Moles/Vol] 27 mmol/L Normal 22-32 [facility] Comment on above: Performed By: #### B MP, LIVR, CBCA, 0-3 #### [facility] ([id number]) [address] [place] [address] 57051 Creatinine [Mass/Vol] 0.76 mg/dL Normal 0.40-1.00 [facility] Comment on above: Result Comment: METH OD TRACEABLE TO IDMS STANDARD Performed By: #### B RHIANNA, LIVR, CBCA, 3039-3 #### [facility] ([id number]) [address] [place] [address] 21702 eGFR (CKD-EPI) NON-RACE DEPENDENT >90 Normal >59 [facility] Comment on above: Result Comment: Reported eGFR is based on the CKD-EPI 2020 equation that does not use a race coefficient. Performed By: #### B MP, LIVR, CBCA, 3039-3 #### [facility] ([id number]) [address] [place] [address] 69687 Glucose [Mass/Vol] 84 mg/dL Normal 65-99 [facility] Comment on above: Performed By: #### B MP, LIVR, CBCA, 3039-3 #### [facility] ([id number]) [address] [place] [address] 57321 Potassium [Moles/Vol] 3.5 mmol/L Normal 3.5-5.0 [facility] Comment on above: Performed By: #### B MP, LIVR, CBCA, 0-3 #### [facility] ([id number]) [address] [place] [address] 18932 Sodium [Moles/Vol] 137 mmol/L Normal 134-146 [facility] Comment on above: Performed By: #### B MP, LIVR, CBCA, 3039-3 #### [facility] ([id number]) [address] [place] [address] 14340 Urea nitrogen [Mass/Vol] 16 mg/dL Normal 5-23 [facility] Comment on above: Performed By: #### B MP, LIVR, CBCA, 3039-3 #### [facility] ([id number]) [address] [place] [address] 26265 CBC AND AUTO DIFFon 10-14-19 24 ABSOLUTE BASOPHIL 0.0 X10E9/L Normal 0.0-0.2 [facility] Comment on above: Performed By: #### B MP, LIVR, CBCA, 3 #### [facility] ([id number]) [address] [place] [address] 41781 ABSOLUTE NEUTROPHIL 3.6 X10E9/L Normal 1.5-6.6 [facility] Comment on above: Performed By: #### B MP, LIVR, CBCA, 3039-3 #### [facility] ([id number]) [address] [place] [address] 25860 Basophils/100 WBC (Bld) 0.2 % Normal [facility] Comment on above: Performed By: #### B MP, LIVR, CBCA, 3039-3 #### [facility] ([id number]) [address] [place] [address] 36438 Eosinophils (Bld) [#/Vol] 0.1 10*3/uL Normal 0.0-0.4 [facility] Comment on above: Performed By: #### B MP, LIVR, CBCA, 3039-3 #### [facility] ([id number]) [address] [place] [address] 15915 Eosinophils/100 WBC (Bld) 1.7 % Normal [facility] Comment on above: Performed By: #### B MP, LIVR, CBCA, 3039-3 #### [facility] ([id number]) [address] [place] [address] 57446 Erythrocyte distribution width (RBC) [Ratio] 14.0 % Normal 11.5-15.0 [facility] Comment on above: Performed By: #### B MP, LIVR, CBCA, 3 #### [facility] ([id number]) [address] [place] [address] 22985 Hematocrit (Bld) [Volume fraction] 35.0 % Normal 35-47 [facility] Comment on above: Performed By: #### B MP, LIVR, CBCA, 3 #### [facility] ([id number]) [address] [place] [address] 60992 Hemoglobin (Bld) [Mass/Vol] 11.8 g/dL Normal 11.7-15.5 [facility] Comment on above: Performed By: #### B MP, LIVR, CBCA, 3 #### [facility] ([id number]) [address] [place] [address] 72458 Lymphocytes (Bld) [#/Vol] 3.0 10*3/uL Normal 1.0-3.5 [facility] Comment on above: Performed By: #### B MP, LIVR, CBCA, 3 #### [facility] ([id number]) [address] [place] [address] 08787 Lymphocytes/100 WBC (Bld) 41.6 % Normal [facility] Comment on above: Performed By: #### B MP, LIVR, CBCA, 3 #### [facility] ([id number]) [address] [place] [address] 01105 MCH (RBC) [Entitic mass] 29.6 pg Normal 27-34 [facility] Comment on above: Performed By: #### B MP, LIVR, CBCA, 3039-12 #### [facility] ([id number]) [address] [place] [address] 30037 MCHC (RBC) [Mass/Vol] 33.8 g/dL Normal 32-36 [facility] Comment on above: Performed By: #### B MP, LIVR, CBCA, 3039-12 #### [facility] ([id number]) [address] [place] [address] 33668 MCV (RBC) [Entitic vol] 88 fL Normal 80-100 [facility] Comment on above: Performed By: #### B MP, LIVR, CBCA, 3039-12 #### [facility] ([id number]) [address] [place] [address] 55617 Monocytes (Bld) [#/Vol] 0.4 10*3/uL Normal 0-0.9 [facility] Comment on above: Performed By: #### B MP, LIVR, CBCA, 3039-12 #### [facility] ([id number]) [address] [place] [address] 39771 Monocytes/100 WBC (Bld) 5.6 % Normal [facility] Comment on above: Performed By: #### B MP, LIVR, CBCA, 3039-12 #### [facility] ([id number]) [address] [place] [address] 52125 Neutrophils/100 WBC (Bld) 50.9 % Normal [facility] Comment on above: Performed By: #### B MP, LIVR, CBCA, 3039-12 #### [facility] ([id number]) [address] [place] [address] 03006 Platelet mean volume (Bld) [Entitic vol] 7.5 fL Normal 7-12 [facility] Comment on above: Performed By: #### B MP, LIVR, CBCA, 3040-3 #### [facility] ([id number]) [address] [place] [address] 60344 Platelets (Bld) [#/Vol] 256 10*3/uL Normal 150-450 [facility] Comment on above: Performed By: #### B MP, LIVR, CBCA, 3040-3 #### [facility] ([id number]) [address] [place] [address] 69746 RBC COUNT 3.99 X10E12/L Normal 3.80-5.20 [facility] Comment on above: Performed By: #### B MP, LIVR, CBCA, 3040-3 #### [facility] ([id number]) [address] [place] [address] 52859 WBC (Bld) [#/Vol] 7.1 10*3/uL Normal 4.0-11.0 [facility] Comment on above: Performed By: #### B MP, LIVR, CBCA, 3040-3 #### [facility] ([id number]) [address] [place] [address] 02594 ABSOLUTE BASOPHIL 0.0 X10E9/L Normal 0.0-0.2 [facility] Comment on above: Performed By: #### C BCA, CMP #### [facility] ([id number]) [address] [place] [address] 31631 ABSOLUTE NEUTROPHIL 4.5 X10E9/L Normal 1.5-6.6 [facility] Comment on above: Performed By: #### C BCA, CMP #### [facility] ([id number]) [address] [place] [address] 43077 Basophils/100 WBC (Bld) 0.2 % Normal [facility] Comment on above: Performed By: #### C BCA, CMP #### [facility] ([id number]) [address] [place] [address] 12829 Eosinophils (Bld) [#/Vol] 0.1 10*3/uL Normal 0.0-0.4 [facility] Comment on above: Performed By: #### C GALEN, CMP #### [facility] ([id number]) [address] [place] [address] 11620 Eosinophils/100 WBC (Bld) 1.1 % Normal [facility] Comment on above: Performed By: #### C GALEN, CMP #### [facility] ([id number]) [address] [place] [address] 71499 Erythrocyte distribution width (RBC) [Ratio] 13.8 % Normal 11.5-15.0 [facility] Comment on above: Performed By: #### C GALEN, CMP #### [facility] ([id number]) [address] [place] [address] 78789 Hematocrit (Bld) [Volume fraction] 36.9 % Normal 35-47 [facility] Comment on above: Performed By: #### C GALEN, CMP #### [facility] ([id number]) [address] [place] [address] 25011 Hemoglobin (Bld) [Mass/Vol] 12.5 g/dL Normal 11.7-15.5 [facility] Comment on above: Performed By: #### C GALEN, CMP #### [facility] ([id number]) [address] [place] [address] 59665 Lymphocytes (Bld) [#/Vol] 3.5 10*3/uL Normal 1.0-3.5 [facility] Comment on above: Performed By: #### C GALEN, CMP #### [facility] ([id number]) [address] [place] [address] 34829 Lymphocytes/100 WBC (Bld) 40.4 % Normal [facility] Comment on above: Performed By: #### C GALEN, CMP #### [facility] ([id number]) [address] [place] [address] 83954 MCH (RBC) [Entitic mass] 29.2 pg Normal 27-34 [facility] Comment on above: Performed By: #### C BCA, CMP #### [facility] ([id number]) [address] [place] [address] 70050 MCHC (RBC) [Mass/Vol] 33.8 g/dL Normal 32-36 [facility] Comment on above: Performed By: #### C GALEN, CMP #### [facility] ([id number]) [address] [place] [address] 15670 MCV (RBC) [Entitic vol] 86 fL Normal 80-100 [facility] Comment on above: Performed By: #### C GALEN, CMP #### [facility] ([id number]) [address] [place] [address] 76187 Monocytes (Bld) [#/Vol] 0.5 10*3/uL Normal 0-0.9 [facility] Comment on above: Performed By: #### C GALEN, CMP #### [facility] ([id number]) [address] [place] [address] 31892 Monocytes/100 WBC (Bld) 6.2 % Normal [facility] Comment on above: Performed By: #### C GALEN, CMP #### [facility] ([id number]) [address] [place] [address] 65795 Neutrophils/100 WBC (Bld) 52.1 % Normal [facility] Comment on above: Performed By: #### C BCA, CMP #### [facility] ([id number]) [address] [place] [address] 40406 Platelet mean volume (Bld) [Entitic vol] 7.8 fL Normal 7-12 [facility] Comment on above: Performed By: #### C BCA, CMP #### [facility] ([id number]) [address] [place] [address] 78558 Platelets (Bld) [#/Vol] 293 10*3/uL Normal 150-450 [facility] Comment on above: Performed By: #### C BCA, CMP #### [facility] ([id number]) [address] [place] [address] 30538 RBC COUNT 4.26 X10E12/L Normal 3.80-5.20 [facility] Comment on above: Performed By: #### C BCA, CMP #### [facility] ([id number]) [address] [place] [address] 93190 WBC (Bld) [#/Vol] 8.7 10*3/uL Normal 4.0-11.0 [facility] Comment on above: Performed By: #### C BCA, CMP #### [facility] ([id number]) [address] [place] [address] 34592 COMPREHENSIVE METABOLIC PANE Nico 10-14-2023 Albumin [Mass/Vol] 4.4 g/dL Normal 3.2-5.3 [facility] Comment on above: Performed By: #### C BCA, CMP #### [facility] ([id number]) [address] [place] [address] 86243 ALP [Catalytic activity/Vol] 104 U/L Normal 39-130 [facility] Comment on above: Performed By: #### C BCA, CMP #### [facility] ([id number]) [address] [place] [address] 61891 ALT [Catalytic activity/Vol] 14 U/L Normal 0-31 [facility] Comment on above: Performed By: #### C BCA, CMP #### [facility] ([id number]) [address] [place] [address] 28405 Anion gap [Moles/Vol] 9 mmol/L Normal 5-15 [facility] Comment on above: Performed By: #### C BCA, CMP #### [facility] ([id number]) [address] [place] [address] 00165 AST [Catalytic activity/Vol] 18 U/L Normal 0-41 [facility] Comment on above: Performed By: #### C BCA, CMP #### [facility] ([id number]) [address] [place] [address] 06345 Bilirubin [Mass/Vol] 0.8 mg/dL Normal 0.3-1.2 [facility] Comment on above: Performed By: #### C BCA, CMP #### [facility] ([id number]) [address] [place] [address] 46320 Calcium [Mass/Vol] 9.0 mg/dL Normal 8.5-10.5 [facility] Comment on above: Performed By: #### C BCA, CMP #### [facility] ([id number]) [address] [place] [address] 60653 Chloride [Moles/Vol] 102 mmol/L Normal 98-109 [facility] Comment on above: Performed By: #### C BCA, CMP #### [facility] ([id number]) [address] [place] [address] 20935 CO2 [Moles/Vol] 28 mmol/L Normal 22-32 [facility] Comment on above: Performed By: #### C BCA, CMP #### [facility] ([id number]) [address] [place] [address] 72990 Creatinine [Mass/Vol] 0.74 mg/dL Normal 0.40-1.00 [facility] Comment on above: Result Comment: METH OD TRACEABLE TO IDMS STANDARD Performed By: #### C BCA, CMP #### [facility] ([id number]) [address] [place] [address], [place] [address] eGFR (CKD-EPI) NON-RACE DEPENDENT >90 Normal >59 [facility] Comment on above: Result Comment: Reported eGFR is based on the CKD-EPI 2020 equation that does not use a race coefficient. Performed By: #### C BCA, CMP #### [facility] ([id number]) [address] [place] [address] 37242 Glucose [Mass/Vol] 98 mg/dL Normal 65-99 [facility] Comment on above: Performed By: #### C BCA, CMP #### [facility] ([id number]) [address] [place] [address] 71377 Potassium [Moles/Vol] 3.7 mmol/L Normal 3.5-5.0 [facility] Comment on above: Performed By: #### C BCA, CMP #### [facility] ([id number]) [address] [place] [address] 28370 Protein [Mass/Vol] 7.9 g/dL Normal 6.0-8.0 [facility] Comment on above: Performed By: #### C BCA, CMP #### [facility] ([id number]) [address] [place] [address] 05491 Sodium [Moles/Vol] 139 mmol/L Normal 134-146 [facility] Comment on above: Performed By: #### C BCA, CMP #### [facility] ([id number]) [address] [place] [address] 59415 Urea nitrogen [Mass/Vol] 17 mg/dL Normal 5-23 [facility] Comment on above: Performed By: #### C BCA, CMP #### [facility] ([id number]) [address] [place] [address] ABDOMEN AND PELVIS W CONT on 10-14-2023 CT ABDOMEN AND PELVIS W CONT CT ABDOMEN AND PELVIS W CONT STUDY: ABDOMEN AND PELVIS CT WITH CONTRAST CLINICAL HISTORY:Abdominal pain, acute, nonlocalized COMPARISON: 10/13/2013. TECHNIQUE: CT abdomen and pelvis was performed utilizing 5 mm axial reconstructions following the uneventful administration of 100 cc Omnipaque 300 nonionic intravenous contrast. Coronal and sagittal reformatted images were generated and reviewed. Automated exposure control was utilized. No acute findings lower thorax. Josefa-en-Y gastric bypass. Fat stranding, wall thickening, at the proximal alimentary channel, as adjacent stippled gas, without extraluminal air/pneumoperitoneum. No dilatation or wall thickening of the bowel elsewhere. Mild/moderate colonic stool burden. Nonvisualized appendix. No collections within the abdomen or pelvis. No acute occlusion of the major visceral vasculature. Asymmetric periureteric fat stranding left collecting system , associated urothelial thickening and hyperenhancement. Minimal left collecting system dilatation. No obstructive calculus seen. No collections within the abdomen or pelvis. Unremarkable liver, right kidney, spleen, pancreas, adrenal glands. No aggressive osseous lesions. Left-sided lower lumbar neural stimulator devices. IMPRESSION: * Josefa-en-Y gastric bypass. Fat stranding and mild wall thickening about the proximal alimentary channel, just downstream of the gastrojejunostomy. Findings worrisome for possible marginal ulcer, correlate clinically. Endoscopy may be helpful. No extraluminal gas. No evidence of transmural perforation. * Left collecting system urothelial thickening, hyperenhancement, periaortic fat stranding and mild soft tissue thickening, findings are nonspecific in the setting of recently removed stent. Minimal collecting system dilatation. All CT scans at this facility use dose modulation, iterative reconstruction, and/or weight based dosing when appropriate to reduce radiation dose to as low as reasonably achievable. Finalized by Shmuel Awad MD on 10/14/2023 12:24 AM Normal [facility] CT ABDOMEN AND PELVIS WO CON Ton 10-14-2023 CT ABDOMEN AND PELVIS WO CONT CT ABDOMEN AND PELVIS WO CONT CLINICAL INFORMATION: Abdominal/flank pain, stone suspected TECHNIQUE: CT Abdomen and Pelvis without intravenous contrast. All CT scans at this facility use dose modulation, iterative reconstruction, and/or weight based dosing when appropriate to reduce radiation dose to as low as reasonably achievable. COMPARISON: 09/08/2023. FINDINGS: Limited noncontrast CT abdomen and pelvis. Within this limitation: No acute findings lower thorax. Josefa-en-Y gastric bypass. Fat stranding, wall thickening, at the proximal elements are canal [series 601 image #40]; probable intramural gas. No dilatation or wall thickening of the bowel. Mild/moderate colonic stool burden. Nonvisualized appendix. No collections within the abdomen or pelvis. Asymmetric periureteric fat stranding left collecting system without substantial collecting system dilatation. No obstructive calculus seen. No collections within the abdomen or pelvis. No aggressive osseous lesions. Left-sided lower lumbar neural stimulator devices. IMPRESSION: * Josefa-en-Y gastric bypass. Fat stranding and mild wall thickening about the proximal alimentary canal, just downstream of the gastrojejunostomy. Findings worrisome for possible marginal ulcer, correlate clinically. Endoscopy may be helpful. Suspected tiny focus of intramural gas. No evidence of transmural perforation. * Left periureteric fat stranding and mild soft tissue thickening, findings are nonspecific in the setting of recently removed stent. No substantial collecting system dilatation. THIS REPORT CONTAINS A SIGNIFICANT RESULT AND/OR RECOMMENDATION, WHICH REQUIRES THE ATTENTION OF THE LICENSED CAREGIVER RESPONSIBLE FOR THIS PATIENT. THEREFORE, I SPECIFICALLY DESIGNATED THIS REPORT TO BE TELEPHONED BY THE RADIOLOGY DEPARTMENT. FINDINGS WERE INSTRUCTED TO BE CALLED TO THE CLINICAL SERVICE ON 10/13/2023 11:00 PM * Finalized by Shmuel Awad MD on 10/13/2023 11:00 PM Normal [facility] LIPASEon 10-14-2023 Lipase [Catalytic activity/Vol] 42 U/L High 17-40 [facility] Comment on above: Performed By: #### B MP, LIVR, CBCA, 3040-3 #### [facility] ([id number]) [address] [place] [address] 45183 LIVER PANELon 10-14-2023 Albumin [Mass/Vol] 4.1 g/dL Normal 3.2-5.3 [facility] Comment on above: Performed By: #### B MP, LIVR, CBCA, 3040-3 #### [facility] ([id number]) [address] [place] [address] 94205 ALP [Catalytic activity/Vol] 99 U/L Normal 39-130 [facility] Comment on above: Performed By: #### B MP, LIVR, CBCA, 3040-3 #### [facility] ([id number]) [address] [place] [address] 52655 ALT [Catalytic activity/Vol] 14 U/L Normal 0-31 [facility] Comment on above: Performed By: #### B MP, LIVR, CBCA, 3040-3 #### [facility] ([id number]) [address] [place] [address] 91395 AST [Catalytic activity/Vol] 20 U/L Normal 0-41 [facility] Comment on above: Performed By: #### B MP, LIVR, CBCA, 3040-3 #### [facility] ([id number]) [address] [place] [address] 18394 Bilirubin [Mass/Vol] 0.8 mg/dL Normal 0.3-1.2 [facility] Comment on above: Performed By: #### B MP, LIVR, CBCA, 3040-3 #### [facility] ([id number]) [address] [place] [address] 37558 Bilirubin.direct [Mass/Vol] 0.1 mg/dL Normal 0.0-0.4 [facility] Comment on above: Performed By: #### B MP, LIVR, CBCA, 3040-3 #### [facility] ([id number]) [address] [place] [address] Protein [Mass/Vol] 7.4 g/dL Normal 6.0-8.0 [facility] Comment on above: Performed By: #### B MP, LIVR, CBCA, 3040-3 #### [facility] ([id number]) [address] [place] [address] Pre-Certification Formon Pre-Certification Form [id number]#1.00TIFF Normal [facility] URN MACROSCOPIC NURon 2023 BILIRUBIN JUNIOR Negative Normal NEG [facility] Comment on above: Performed By: #### N UM #### [facility] ([id number]) [address] [place] [address] [place] [address] BLOOD/HGB JUNIOR Large Abnormal NEG [facility] Comment on above: Performed By: #### N UM #### [facility] ([id number]) [address] [place] [address] [place] [address] GLUCOSE JUNIOR Negative Normal NEG [facility] Comment on above: Performed By: #### N UM #### [facility] ([id number]) [address] [place] [address] [place] [address] KETONES JUNIOR Negative Normal NEG [facility] Comment on above: Performed By: #### N UM #### [facility] ([id number]) [address] [place] [address] [place] [address] LEUKOCYTE ESTERASE JUNIOR Trace Abnormal NEG [facility] Comment on above: Performed By: #### N UM #### [facility] ([id number]) [address] [place] [address] [place] [address] NITRITE JUNIOR Negative Normal [facility] Comment on above: Performed By: #### N UM #### [facility] ([id number]) [address] [place] [address] [place] [address] PH JUNIOR 7.0 Normal 5.0-8.5 [facility] Comment on above: Performed By: #### N UM #### [facility] ([id number]) [address] [place] [address] [place] [address] PROTEIN JUNIOR Negative Normal NEG [facility] Comment on above: Performed By: #### N UM #### [facility] ([id number]) [address] [place] [address] SPECIFIC GRAVITY JUNIOR 1.025 Normal 1.003-1.035 [facility] Comment on above: Performed By: #### N UM #### [facility] ([id number]) [address] [place] [address] UROBILINOGEN JUNIOR 1.0 eu/dL Normal <1.1 [facility] Comment on above: Performed By: #### N UM #### [facility] ([id number]) [address] [place] [address] Consent for Procedure/Surger yon 10-12-2023 Consent for Procedure/Surgery [id number]#1.00TIFF Normal [facility] Consent for Treatmenton Consent for Treatment [id number]#1.00TIFF Normal [facility] Insurance Correspondenceon 0 10-12-2023 Insurance Correspondence [id number]#1.00TIFF Normal [facility] IntraOperative Documentson 0 10-12-2023 IntraOperative Documents [id number]#1.00TIFF Normal [facility] IntraOperative Documents [id number]#1.00TIFF Normal [facility] Main OR Intraoperative Recor don 10-12-2023 Main OR Intraoperative Record IntraOp Document Type FTURO Summary Primary Physician: Diana HAWKINS MD Finalized Date/Time: 10/12/23 10:37:58 Pt. Name: ELVI MOORE/Sex: 1980 Female Med Rec #: [id number] Physician: Diana HAWKINS MD Financial #: [id number] Pt. Type: O Room/Bed: / Admit/Disch: 10/12/23 09:34:46 - Institution: Case Times FTURO Entry 1 Patient Times In Room 10/12/23 10:29:00 Out Room 10/12/23 10:43:00 Procedure Times Start 10/12/23 10:32:00 Stop 10/12/23 10:38:00 Anesthesia Times Last Modified By: JATIN Hinojosa RN, Ruthann 10/12/23 10:35:54 Case Attendance FTURO Entry 1 Entry 2 Entry 3 Case Attendee ROSS GENTILE, Diana Lowe, Asia Hinojosa RN, TRACEYOR, Kesha Role Performed Surgeon - Primary Scrub - Primary Museum Educator - Primary Time In 10/12/23 10:29:00 10/12/23 10:29:00 10/12/23 10:29:00 Time Out 10/12/23 10:43:00 10/12/23 10:43:00 10/12/23 10:43:00 Procedure CYSTOSCOPY LOCAL WITH CYSTOSCOPY LOCAL WITH CYSTOSCOPY LOCAL WITH STENT REMOVAL(Left) STENT REMOVAL(Left) STENT REMOVAL(Left) Comments Last Modified By: Ashish ROBLEDO, TRACEYOR, Ashish ROBLEDO, JATIN, Ashsih ROBLEDO, TRACEYOR, Kesha 10/12/23 Kesha 10/12/23 Kesha 10/12/23 10:35:55 10:35:55 10:35:55 Surgical Procedures FTURO Entry 1 Procedure Description Procedure CYSTOSCOPY LOCAL WITH Modifiers Left STENT REMOVAL Surgeon Description CYSTO LEFT STENT REMOVAL Primary Procedure Yes Primary Surgeon Diana HAWKINS MD 10/12/23 10:32:00 Stop 10/12/23 10:38:00 Anesthesia Type Local Surgical Service Urology Wound Class 2 - Clean-Contaminated Last Modified By: JATIN Hinojosa RN, Ruthann 10/12/23 10:35:56 General Case Data FTURO Pre-Care Text: Classifies surgical wound, implements aseptic technique, initiates traffic control Entry 1 Case Information OR URO 1 FT Case Level None Wound Class 2 - Clean-Contaminated Specialty Urology Preop Diagnosis STATUS POST LEFT STENT Postop Same As Preop Yes PLACEMENT Postop Diagnosis STATUS POST LEFT STENT Outcomes Met? Yes PLACEMENT Last Modified By: JATIN Hinojosa RN, Kesha 10/12/23 10:30:12 Post-Care Text: The patient is free from signs and symptoms of infection EU IntraOp - FTURO Pre-Care Text: Implements protective measures prior to operative or invasive procedure, confirms identity before the operative or invasive procedure, verifies operative procedure, surgical site, and laterality Entry 1 EU Perioperative Protocols Procedure(s) CYSTOSCOPY LOCAL WITH Patient Identity Birthday, ID Band STENT REMOVAL(Left) Verified (select at Check, Patient least 2): Participation Consents / H and P HandP, Surgery/Procedure Operative Site N/A Verified Consent Marking Verified Surgical Site Yes Laterality Verified n/a Verified Procedure Verified Yes Correct Patient Yes Position Verified Availability Equipment, Medication Time Out Diana HAWKINS MD, Verified (If Participants Asia Lowe, Applicable) JATIN Hinojosa RN, Ruthann Time Out Complete 10/12/23 10:30:00 Allergies Reviewed? Yes Allergies Reviewed Self/Patient With Body Position Frog Legged Prep Area PERINEAL AREA Prep Agents Betadine Solution Skin. Condition Unable to Visualize Additional None Specimens Collected Vitals - EU Blood Pressure 126/86 Pulse 94 bpm Respirations SPO2 EBL 0 IandO - EU Total Intake 0 mL Total Output 0 mL Outcomes Met? Yes Last Modified By: JATIN Hinojosa RN, Ruthann 10/12/23 10:35:42 Post-Care Text: The patient is free from signs and symptoms of injury caused by extraneous objects Sign Out FTURO Entry 1 Before Patient Leaves OR Nurse verbally Yes Nurse verbally n/a confirms with the confirms with the team the name of team that the procedure(s) instrument, sponge, recorded and needle counts are correct (or N/A) Nurse verbally n/a Nurse verbally n/a confirms with the confirms with the team how the team whether there specimen is labeled are any equipment (including patient problems to be name), if applicable addressed Sign Out Complete 10/12/23 10:40:00 Last Modified By: JATIN Hinojosa RN, Ruthann 10/12/23 10:36:05 Case Comments Finalized By: JATIN Hinojosa RN, Ruthann Document Signatures Signed By: JATIN Hinojosa RN, Ruthann 10/12/23 10:36 JATIN Hinojosa RN, Ruthann 10/12/23 10:37 [facility] Main OR Preoperative Recordo n 10-12-2023 Main OR Preoperative Record Holding Area Document Type FTURO Summary Primary Physician: Diana HAWKISN MD Finalized Date/Time: 10/12/23 10:32:11 Pt. Name: ELVI MOORE /Sex: 1980 Female Med Rec #: [id number] Physician: Diana HAWKINS MD Financial #: [id number] Pt. Type: O Room/Bed: / Admit/Disch: 10/12/23 09:34:46 - Institution: Case Times Holding FTURO Pre-Care Text: Verifies consent for planned procedure, identifies individual values and wishes concerning care, includes family members in perioperative teaching Secures patient's records' belongings, and valuables, maintains patient's dignity and privacy, and maintains patient confidentiality Entry 1 In Holding 10/12/23 09:47:00 Outcomes Met? Yes Last Modified By: Vicki Figueroa RN 10/12/23 09:47:26 Post-Care Text: The patient participates in decisions affecting his or her perioperative plan of care The patient's right to privacy is maintained Surgery Checklist FTURO Entry 1 Patient Birthday, ID Band Procedure History and Physical, Identification: Check, Patient Verification: Surgical Consent, With Participation Patient NPO after Midnight: n/a Personal Items: Jewelry Personal Items RINGS X 2 Limitations: UP AD ENOCH Comment: Complaints of Pain: Yes Pain Comment: 03/20 -LEFT FLANK AND GROIN AREAS Skin Integrity Dry, Warm Vitals - EU Blood Pressure 126/86 Pulse 94 bpm Respirations 16 br/min SPO2 98 % Additional None RN Reviewed Yes Specimens Collected Last Modified By: Vicki Figueroa RN 10/12/23 09:49:17 Finalized By: JATIN Hinojosa RN, Ruthann Document Signatures Signed By: Vicki Figueroa RN 10/12/23 09:49 Vicki Figueroa RN 10/12/23 09:54 JATIN Hinojosa RN, Ruthann 10/12/23 10:32 Normal [facility] Operative Reporton 4 Operative Report Patient: DIEGO MOORE Age: 42 years Sex: Female : 1980 Associated Diagnoses: None Author: Diana HAWKINS MD Procedure Operative Information Details: Date/ Time: 10/12/2023 10:38:00. Pre-Op Dx: Foreign Body in Bladder - T19.1XXA. Post-Op Dx: Same. Anesthesia Type: Local. Procedure: Local Cystoscopy with Stent Removal. Complications: None. Risks/Benefits/Informed Consent: Surgical risks, benefits, details of the procedure have been explained to the patient, Full informed consent has been obtained. Intraoperative Information Prepped: The patient was placed in a modified dorso-lithotomy position, The patient was prepped with the Betadine solution. Anesthesia: 2% Xylocaine Jelly per urethra. Procedure: Cystoscopy and Left Stent Removal, The flexible Cystoscope was passed in retrograde fashion into the bladder without difficulty, The bladder was viewed in entirety and found to be without tumors or stones, Mild inflammation was seen surrounding the orifice with the stent seen protruding from it, The stent was then grasped and removed in its entirety. Specimens Removed: None. Devices Implanted: None. Postoperative Information Discharge: The patient tolerated the procedure well and was subsequently discharged home. [facility] Comment on above: Result Comment: Elec tronically Signed By: ROSS GENTILE, Diana Darnell.br\Date and Time Signed: 10/12/23 10:38 EST Outpatient Surgery Discharge Instructionon 10-12-2023 Outpatient Surgery Discharge Instruction [id number]#1.00TIFF [facility] Formson 10-08-2023 Forms [id number]#1.00TIFF [facility] ED Note-Physicianon 10-07-20 ED Note-Physician [id number]#1.00TIFF [facility] Formson 10-07-2023 Forms [id number]#1.00TIFF [facility] Lab Reportson 10-07-2023 Lab Reports [id number]#1.00TIFF [facility] RAD - CT Reporton 10-07-2023 RAD - CT Report [id number]#1.00TIFF [facility] Lab Reportson 09-27-2023 Lab Reports [id number]#1.00TIFF [facility] OARRS Reporton 09-27-2023 OARRS Report [id number]#1.00TIFF [facility] Pre-Certification Formon Pre-Certification Form [id number]#1.00TIFF [facility] Provider Letteron 09-27-2023 Provider Letter (Inserted Image. Darleen ble to display) September 27, [address] [place] [address] : 1980 To Whom It May Concern, Please excuse above patient from work. Date of Illness: From: 09/16/2023 To: 09/28/2023 May Return to Work On:09/29/2023 Restrictions: No Restrictions Comments: Any questions, please call our office Sincerely, [facility] [address], [place] [address] [facility] Provider Letter (Inserted Image. Darleen ble to display) September 27, [address] [place] [address] : 1980 To Whom It May Concern, Please excuse above patient from work. Date of Illness: From: 09/16/2023 To: 09/28/2023 May Return to Work On: 09/29/2023 Restrictions: No Restrictios Comments: _ Sincerely, [facility] [address] [place] [address] [facility] Formson 09-22-2023 Forms [id number]#1.00TIFF [facility] RAD - MISCon 09-21-2023 RAD - MISC [id number]#1.00TIFF [facility] Provider Letteron 09-20-2023 Provider Letter (Inserted Image. Darleen ble to display) September 20, [address] [place] [id number] : 1980 To Whom It May Concern, Please excuse above patient from work. Date of Illness: From: 09/16/23 To: 09/21/23 May Return to Work On: 09/22/23 Restrictions: N/A Comments: Patient may return to work 09/22/23. Patient had a surgical procedure done 09/16/[address] Diana Hawkins. Sincerely, [facility] ECG 12-Leadon 09-17-2023 ECG 12-Lead [id number]#1.00TIFF [facility] Lab Reportson 09-17-2023 Lab Reports [id number]#1.00TIFF [facility] RAD - CT Reporton 09-17-2023 RAD - CT Report [id number]#1.00TIFF [facility] RAD - MISCon 09-17-2023 RAD - MISC [id number]#1.00TIFF [facility] RAD - Ultrasound Reporton RAD - Ultrasound Report [id number]#1.00TIFF [facility] Operative Reporton Operative Report [id number]#1.00TIFF [facility] ED Note-Physicianon 09-14-20 ED Note-Physician [id number]#1.00TIFF [facility] Insurance Correspondenceon 1 11-15-2022 Insurance Correspondence [id number]#1.00TIFF Normal [facility] RAD - CT Reporton 09-14-2023 RAD - CT Report [id number]#1.00TIFF Normal [facility] RAD - CT Report [id number]#1.00TIFF Normal [facility] Ambulatory Visit Summaryon 1 11-14-2022 Ambulatory Visit Summary ELVI MOORE :1980 Visit Date:09/13/2023 Ambulatory Visit Instructions Your Diagnosis Kidney stone Gross hematuria Left flank pain Tests Performed Urnls Dip Stick Auto w/o Microscopy POC 83366 Your Care Team Attending Physician - ROSS [...] Where: [facility] [address] , [place] [phone] [id number] Medications What How Much When Instructions Unchanged [...] Urnls Dip Stick Auto w/o Microscopy POC 75470 (09/13/2023) Bilirubin Urine Dipstick - Negative Blood Urine Dipstick - 2+ Moderate Glucose Urine Dipstick - Negative Ketones Urine Dipstick - Negative Leukocytes Urine Dipstick - Negative Nitrite Urine Dipstick - Negative Protein Urine Dipstick - Negative Specific [place] Urine Dipstick - 1.025 Urine Appearance Urine [...] including vitamins, herbs, eye drops, creams, and lfiv-gep-tspaqte medicines. ? Any problems you or family members have had with anesthetic medicines. ? Any blood disorders you have. ? Any surgeries you have had. ? Any m (more content not included)... [facility] Consent for Procedure/Surger yon 09-13-2023 Consent for Procedure/Surgery [id number]#1.00TIFF [facility] 36on 09-08-2023 36 Patient seen in the ER for a large kidney stone. Was prescribed Oxycodone medication for pain discomfort. Patient would like to know if this will be ok for her to get from pharmacy. Please advise [phone]. Thank you Normal [facility] Consultation Noteon 08-23-20 Consultation Note [id number]#1.00TIFF [facility] Lab Reportson 08-23-2023 Lab Reports [id number]#1.00TIFF [facility] Consultation Noteon 08-20-20 Consultation Note [id number]#1.00TIFF [facility] Follow-Upon 08-19-2023 Follow-Up [id number] Madyson Moore 1980 F Date Provider Department Center 08/19/2023 ARJUN ROSE PAIN [facility] Family History Problem Relation Age of Onset Brain cancer Mother Breast cancer Sister Kidney cancer Maternal Grandmother Prostate cancer Paternal Grandfather Cancer Father Cancer Sister Family Status - Relation Status Age at Mother Sister Maternal Grandmother Paternal Grandfather Father Sister Level of Service:71481 [place] OFFICE/OUTPATIENT ESTABLISHED MOD MDM 30-39 MIN Reason for Visit and Comments: Follow-up [10991211] - Chronic Left Knee Pain Normal [facility] Follow-Upon 07-20-2023 Follow-Up [id number] Madyson Moore ma 1980 F Date Provider Department Center 07/20/2023 ARJUN ROSE MP PAIN [facility] Family History Problem Relation Age of Onset Brain cancer Mother Breast cancer Sister Kidney cancer Maternal Grandmother Prostate cancer Paternal Grandfather Cancer Father Cancer Sister Family Status - Relation Status Age at Mother Sister Maternal Grandmother Paternal Grandfather Father Sister Level of Service:72804 [place] OFFICE/OUTPATIENT ESTABLISHED MOD MDM 30-39 MIN Reason for Visit and Comments: Follow-up [10991211] - Left knee pain [facility] Orders Onlyon 07-07-2023 Orders Only [id number] LudyModesto tilleynicole ma 1980 F Date Provider Department Center 07/07/2023 RUKHSANA ESPINOZA MP PAIN [facility] Family History Problem Relation Age of Onset Brain cancer Mother Breast cancer Sister Kidney cancer Maternal Grandmother Prostate cancer Paternal Grandfather Cancer Father Cancer Sister Family Status - Relation Status Age at Mother Sister Maternal Grandmother Paternal Grandfather Father Sister [facility] 36on 06-09-2023 36 Approving, but needs appt for additional refills. [facility] 36 Patient is julianin g her [place] 5/325 refill, needs it before the weekend. Please and thank you so much. Normal [facility] Follow-Upon 06-01-2023 Follow-Up [id number] LudyModesto tilleynicole ma 1980 F Date Provider Department Center 06/01/2023 ARJUN ROSE MP PAIN [facility] Family History Problem Relation Age of Onset Brain cancer Mother Breast cancer Sister Kidney cancer Maternal Grandmother Prostate cancer Paternal Grandfather Cancer Father Cancer Sister Family Status - Relation Status Age at Mother Sister Maternal Grandmother Paternal Grandfather Father Sister Level of Service:89763 [place] OFFICE/OUTPATIENT ESTABLISHED LOW MDM 20-29 MIN () Reason for Visit and Comments: Med Management [8402288980] - Left Leg Pain No refills needed today Normal [facility] Ferritinon 05-28-2023 Ferritin [Mass/Vol] 4.9 ng/mL Low 11.0-306.8 [facility] Comment on above: Result Comment: PERF ORMED BY: [place] [address] PATHOLOGIST COMPLIANCE OFFICER MELISSA WAGNER M.D. Performed By: #### S CAN CBC, JANESSA, FE and TIBC #### [facility] [address] [place] [address] Iron and TIBC Profileon 05-11 % Iron Saturation 2.5 % Low 20-50 [facility] Comment on above: Performed By: #### S CAN CBC, JANESSA, FE and TIBC #### [facility] [address] [place] [address] Iron [Mass/Vol] 13 ug/dL Low 50-212 [facility] Comment on above: Performed By: #### S CAN CBC, JANESSA, FE and TIBC #### [facility] [address] [place] [address] Total Iron Binding Capacity 517 ug/dL High 255-450 [facility] Comment on above: Performed By: #### S CAN CBC, JANESSA, FE and TIBC #### [facility] [address] [place] [address] Transferrin [Mass/Vol] 369 mg/dL High 203-362 [facility] Comment on above: Performed By: #### S CAN CBC, JANESSA, FE and TIBC #### [facility] [address] [place] [address] [place] Scan and CBCon 05-28-2023 Anisocytosis Ql (Bld) Marked Normal [facility] Comment on above: Performed By: #### S CAN CBC, JANESSA, FE and TIBC #### [facility] [address] [place] [address] Basophils (Bld) [#/Vol] 0.0 10*3/uL Normal 0.0-0.2 [facility] Comment on above: Performed By: #### S CAN CBC, JANESSA, FE and TIBC #### [address] Basophils/100 WBC (Bld) 0.3 % Normal . [facility] Comment on above: Performed By: #### S CAN CBC, JANESSA, FE and TIBC #### [address] Eosinophils (Bld) [#/Vol] 0.0 10*3/uL Normal 0.0-0.45 [facility] Comment on above: Performed By: #### S CAN CBC, JANESSA, FE and TIBC #### [address] Eosinophils/100 WBC (Bld) 0.6 % Normal . [facility] Comment on above: Performed By: #### S CAN CBC, JANESSA, FE and TIBC #### [address] Erythrocyte distribution width (RBC) [Ratio] 20.1 % High 11.9-15.3 [facility] Comment on above: Performed By: #### S CAN CBC, JANESSA, FE and TIBC #### [address] Hematocrit (Bld) [Volume fraction] 28.6 % Low 34.0-46.4 [facility] Comment on above: Performed By: #### S CAN CBC, JANESSA, FE and TIBC #### [address] Hemoglobin (Bld) [Mass/Vol] 8.9 g/dL Low 11.8-15.4 [facility] Comment on above: Performed By: #### S CAN CBC, JANESSA, FE and TIBC #### [address] Hypochromasia Moderate Normal [facility] Comment on above: Performed By: #### S CAN CBC, JANESSA, FE and TIBC #### [address] Lymphocytes (Bld) [#/Vol] 2.6 10*3/uL Normal 1.00-4.8 [facility] Comment on above: Performed By: #### S CAN CBC, JANESSA, FE and TIBC #### [address] Lymphocytes/100 WBC (Bld) 37.7 % Normal . [facility] Comment on above: Performed By: #### S CAN CBC, JANESSA, FE and TIBC #### [address] MCH (RBC) [Entitic mass] 20.5 pg Low 24.7-34.3 [facility] Comment on above: Performed By: #### S CAN CBC, JANESSA, FE and TIBC #### [address] MCV (RBC) [Entitic vol] 65.8 fL Low 80-100 [facility] Comment on above: Performed By: #### S CAN CBC, JANESSA, FE and TIBC #### [address] Mean Corpuscular HGB Conc 31.1 g/dL Low 32.0-35.0 [facility] Comment on above: Performed By: #### S CAN CBC, JANESSA, FE and TIBC #### [address] Microcytosis Marked Normal [facility] Comment on above: Performed By: #### S CAN CBC, JANESSA, FE and TIBC #### [address] Monocytes (Bld) [#/Vol] 0.4 10*3/uL Normal 0.0-0.8 [facility] Comment on above: Performed By: #### S CAN CBC, JANESSA, FE and TIBC #### [address] Monocytes/100 WBC (Bld) 6.3 % Normal . [facility] Comment on above: Performed By: #### S CAN CBC, JANESSA, FE and TIBC #### [address] Neutrophils (Bld) [#/Vol] 3.8 10*3/uL Normal 1.8-7.7 [facility] Comment on above: Performed By: #### S CAN CBC, JANESSA, FE and TIBC #### [address] Neutrophils/100 WBC (Bld) 55.1 % Normal . [facility] Comment on above: Performed By: #### S CAN CBC, JANESSA, FE and TIBC #### [address] NRBC% 0.1 /100{WBC} Normal 0-0.5 [facility] Comment on above: Performed By: #### S CAN CBC, JANESSA, FE and TIBC #### [address] Ovalocytes Slight Normal [facility] Comment on above: Performed By: #### S CAN CBC, JANESSA, FE and TIBC #### [address] Platelet Estimate Normal Normal Normal [facility] Comment on above: Performed By: #### S CAN CBC, JANESSA, FE and TIBC #### [address] Platelet mean volume (Bld) [Entitic vol] 8.7 fL Normal 6.3-10.7 [facility] Comment on above: Performed By: #### S CAN CBC, JANESSA, FE and TIBC #### [address] Platelet Morphology Normal Normal Normal [facility] Comment on above: Result Comment: PERF ORMED BY: [place] [address] PATHOLOGIST COMPLIANCE OFFICER MELISSA WAGNER M.D. Performed By: #### S CAN CBC, JANESSA, FE and TIBC #### [address] Platelets (Bld) [#/Vol] 218 10*3/uL Normal 150-450 [facility] Comment on above: Performed By: #### S CAN CBC, JANESSA, FE and TIBC #### [facility] [address] Poikilocytosis Slight Normal [facility] Comment on above: Performed By: #### S CAN CBC, JANESSA, FE and TIBC #### [facility] [address] RBC (Bld) [#/Vol] 4.34 10*6/uL Normal 3.60-5.00 [facility] Comment on above: Performed By: #### S CAN CBC, JANESSA, FE and TIBC #### [facility] [address] [place] [address] Schistocytes Slight Normal [facility] Comment on above: Performed By: #### S CAN CBC, JANESSA, FE and TIBC #### [facility] [address] [place] [address] WBC (Bld) [#/Vol] 6.9 10*3/uL Normal 3.8-11.6 [facility] Comment on above: Performed By: #### S CAN CBC, JANESSA, FE and TIBC #### [address] 29on 05-04-2023 29 Addended by: ARJUN MINER on: 05/04/2023 11:37 AM Modules accepted: Level of Service Normal [facility] Follow-Upon 05-04-2023 Follow-Up [id number] Madyson Moore 1980 F Date Provider Department Center 05/04/2023 274-ARJUN MINER PAIN Medical [facility] Chart Close Cosign Required by: Arjun Miner MD[[id number]] Family History Problem Relation Age of Onset Brain cancer Mother Breast cancer Sister Kidney cancer Maternal Grandmother Prostate cancer Paternal Grandfather Cancer Father Cancer Sister Family Status - Relation Status Age at Mother Sister Maternal Grandmother Paternal Grandfather Father Sister Level of Service:74464 [place] POSTOP FOLLOW UP VISIT RELATED TO ORIGINAL PX Reason for Visit and Comments: Follow-up [404993] - S/P Jackson Implant 1 week post-op. Within the first few days her knee was 70% improvement in pain relief, while her incision site is still very sore at a 25% improvement since the procedure. [facility] HPon 04-28-2023 History Of Present Illness Elvi Moore is [...] MG tablet every 12 (twelve) hours. HYDROcodone-acetaminophen (Lewellen) 5-325 mg tablet Take 1 tablet by [...] meds will be given Arjun Miner MD [facility] OPNOTEon 04-28-2023 OPNOTE INSERTION, PULSE GENERATOR, SPINAL CORD STIMULATOR Operative Note Date: 04/28/2023 Location: [facility] OR Name: Elvi Moore, : 1980, Diagnosis Pre-op Diagnosis * Complex regional pain syndrome type 1 of left lower extremity [G90.522] Post-op Diagnosis * Complex regional pain syndrome type 1 of left lower extremity [G90.522] Procedures INSERTION, PULSE GENERATOR, SPINAL CORD STIMULATOR 90757 - MN INSJ/RPLCMT SPI NPGR DIR/INDUXIVE COUPLING MN PRQ IMPLTJ NSTIM ELECTRODE ARRAY EPIDURAL [14783] MN ELEC ADITYA IMPLT NPGT CPLX SP/PN PRGRMG [51314] Surgeons * Arjun Miner - Primary Procedure Summary Anesthesia: Monitor Anesthesia Care ASA: III Estimated Blood Loss: 10 mL Implants Type Name Action Serial No. SLIMTIP DRG Explanted [id number] [employer]IMTIP [employer]G Implanted [id number] PROCLAIM DRG Implanted [id number] SLIMTIP DRG Implanted [id number] Staff: Museum Educator: Phillip Meyer RN Scrub Person: Mercy Duarte [...] then introduced (more content not included)... Normal [facility] POCT GLUCOSE METER UNSOLICIT ED RESULTSon 04-28-2023 Glucose [Mass/Vol] 88 mg/dL Normal 70-105 [facility] Comment on above: Order Comment: Waive d Testing in the ED is performed under the ED CLIA certificate #[id number]. Result Comment: ngro bronwyn Performed By: #### L [id number] #### [facility] ([facility]) [address] [place] [address] BASIC METABOLIC PANELon 07-0 Anion gap [Moles/Vol] 11 mmol/L Normal 7-20 [facility] Comment on above: Performed By: #### L [id number] #### [facility] [address] [place] [address] Calcium [Mass/Vol] 9.2 mg/dL Normal 8.6-10.3 [facility] Comment on above: Performed By: #### L [id number] #### [facility] ([facility]) [address] [place] [address] Chloride [Moles/Vol] 106 mmol/L Normal 98-107 [facility] Comment on above: Performed By: #### L [id number] #### [facility] ([facility]) [address] [place] [id number] CO2 [Moles/Vol] 27 mmol/L Normal 21-31 [facility] Comment on above: Performed By: #### L [id number] #### [facility] ([facility]) [address] [place] [id number] Creatinine [Mass/Vol] 0.76 mg/dL Normal 0.60-1.20 [facility] Comment on above: Performed By: #### L [id number] #### [facility] ([facility]) [address] [place] [address] GLOMERULAR FILTRATION RATE ML/MIN/1.73 SQ M.PREDICTED 100.9 mL/min/1.73m*2 Normal >60.0 [facility] Comment on above: Result Comment: [facility]???s estimated glomerular filtration rate (eGFR) will [...] individuals. Performed By: #### L [id number] #### [facility] ([facility]) [address] [place] [address] Glucose [Mass/Vol] 64 mg/dL Low 70-100 [facility] Comment on above: Performed By: #### L [id number] #### [facility] ([facility]) [address] [place] [address] Potassium [Moles/Vol] 4.3 mmol/L Normal 3.5-5.1 [facility] Comment on above: Performed By: #### L [id number] #### [facility] ([facility]) [address] [place] [address] Sodium [Moles/Vol] 140 mmol/L Normal 136-145 [facility] Comment on above: Performed By: #### L [id number] #### [facility] ([facility]) [address] [place] [address] Urea nitrogen [Mass/Vol] 12 mg/dL Normal 7-25 [facility] Comment on above: Performed By: #### L [id number] #### [facility] [address] [place] [address] UREA NITROGEN/CREATININE (MASS RATIO) IN SER/PLAS 15.8 Normal [facility] Comment on above: Performed By: #### L [id number] #### [facility] ([facility]) [address] [address] CBC WITH AUTO DIFFERENTIALon 04-15-2023 Erythrocyte distribution width (RBC) [Ratio] 17.9 % High 11.5-15.0 [facility] Comment on above: Performed By: #### L [id number] ####[facility] ([facility])[address] [place] [address] ERYTHROCYTE MEAN CORPUSCULAR HEMOGLOBIN CONCENTRATION (G/DL) BY AUTOMATED 28.7 g/dL Low 32.0-35.0 [facility] Comment on above: Performed By: #### L [id number] ####[facility] ([facility])[address] [place] [address] Hematocrit (Bld) [Volume fraction] 31.0 % Low 36.0-48.0 [facility] Comment on above: Performed By: #### L [id number] ####[facility] [place] [address] Hemoglobin (Bld) [Mass/Vol] 8.9 g/dL Low 12.0-15.0 [facility] Comment on above: Performed By: #### L [id number] ####[facility] [place] [address] MCH (RBC) [Entitic mass] 20.0 pg Low 27.0-33.0 [facility] Comment on above: Performed By: #### L [id number] ####[facility] [place] [address] MCV (RBC) [Entitic vol] 69.5 fL Low 82.0-98.0 [facility] Comment on above: Performed By: #### L [id number] ####[facility] [place] [id number] NRBC (PER 100 WBCS) BY AUTOMATED COUNT 0.0 % Normal 0 [facility] Comment on above: Performed By: #### L [id number] ####[facility] [place] [id number] PLATELETS (10*3/UL) IN BLOOD AUTOMATED COUNT 294 10*3/uL Normal 150-400 [facility] Comment on above: Performed By: #### L [id number] ####[facility] ([facility])[address] [place] [address] RBC (Bld) [#/Vol] 4.46 10*6/uL Normal 3.80-5.00 [facility] Comment on above: Performed By: #### L [id number] ####[facility] ([facility])[address] [place] [address] WBC (Bld) [#/Vol] 4.65 10*3/uL Normal 4.00-10.60 [facility] Comment on above: Performed By: #### L [id number] ####[facility] [place] [address] Labon 04-15-2023 Lab [id number] Madyson Moore 1980 F Date Provider Department Center 04/15/2023 2244-[facility] MP LAB RESOURCE MP DRAW Medical [facility] Family History Problem Relation Age of Onset Brain cancer Mother Breast cancer Sister Kidney cancer Maternal Grandmother Prostate cancer Paternal Grandfather Cancer Father Cancer Sister Family Status - Relation Status Age at Mother Sister Maternal Grandmother Paternal Grandfather Father Sister Normal [facility] MANUAL DIFFERENTIALon 2022 ANISOCYTOSIS PRESENCE IN BLOOD BY LIGHT MICROSCOPY Moderate Normal [facility] Comment on above: Performed By: #### L [id number] ####[facility] ([facility])[address] [place] [address] BASOPHILS (10*3/UL) IN BLOOD BY CALCULATION 0.01 10*3/uL Normal 0.00-0.20 [facility] Comment on above: Performed By: #### L [id number] ####[facility] ([facility])[address] [place] [address] BASOPHILS/100 LEUKOCYTES IN BLOOD BY AUTOMATED COUNT 0.2 % Normal 0.0-1.0 [facility] Comment on above: Performed By: #### L [id number] ####[facility] ([facility])[address] [place] [address] EOSINOPHILS (10*3/UL) IN BLOOD BY CALCULATION 0.06 10*3/uL Normal 0.00-0.50 [facility] Comment on above: Performed By: #### L [id number] ####[facility] ([facility])[address] [place] [address] EOSINOPHILS/100 LEUKOCYTES IN BLOOD BY AUTOMATED COUNT 1.3 % Normal 0.0-6.0 [facility] Comment on above: Performed By: #### L [id number] ####[facility] ([facility])[address] [place] [address] HYPOCHROMIA (PRESENCE) IN BLOOD BY LIGHT MICROSCOPY Slight Normal [facility] Comment on above: Performed By: #### L [id number] ####[facility] ([facility])[address] [place] [address] IMMATURE GRANULOCYTES (10*3/UL) IN BLOOD BY CALCULATION 0.01 10*3/uL Normal 0.00-0.20 [facility] Comment on above: Performed By: #### L [id number] ####[facility] ([facility])[address] [place] [address] IMMATURE GRANULOCYTES/100 LEUKOCYTES IN BLOOD BY AUTOMATED COUNT 0.2 % Normal 0.0-1.0 [facility] Comment on above: Performed By: #### L [id number] ####[facility] ([facility])[address] [place] [address] LYMPHOCYTES (10*3/UL) IN BLOOD BY CALCULATION 1.36 10*3/uL Normal 1.20-4.00 [facility] Comment on above: Performed By: #### L [id number] ####[facility] ([facility])[address] [place] [address] LYMPHOCYTES/100 LEUKOCYTES IN BLOOD BY AUTOMATED COUNT 29.2 % Normal 20.0-45.0 [facility] Comment on above: Performed By: #### L [id number] ####[facility] ([facility])[address] [place] [address] MICROCYTES (PRESENCE) IN BLOOD BY LIGHT MICROSCOPY Slight Normal [facility] Comment on above: Performed By: #### L [id number] ####[facility] ([facility])[address] [place] [address] MONOCYTES (10*3/UL) IN BLOOD BY CALCUATION 0.33 10*3/uL Normal 0.10-1.00 [facility] Comment on above: Performed By: #### L [id number] ####[facility] ([facility])[address] [place] [address] MONOCYTES/100 LEUKOCYTES IN BLOOD BY AUTOMATED COUNT 7.1 % Normal 5.0-12.0 [facility] Comment on above: Performed By: #### L [id number] ####[facility] ([facility])[address] [place] [address] NEUTROPHILS (10*3/UL) IN BLOOD BY CALCULATION 2.9 10*3/uL Normal 1.6-7.6 [facility] Comment on above: Performed By: #### L [id number] ####[facility] ([facility])[address] [place] [address] NEUTROPHILS/100 LEUKOCYTES IN BLOOD BY AUTOMATED COUNT 62.0 % Normal 40.0-72.0 [facility] Comment on above: Performed By: #### L [id number] ####[facility] ([facility])[address] [place] [address] POIKILOCYTOSIS (PRESENCE) IN BLOOD BY LIGHT MICROSCOPY Slight Normal [facility] Comment on above: Performed By: #### L [id number] ####[facility] ([facility])[address] [place] [address] POLYCHROMASIA IN BLOOD BY LIGHT MICROSCOPY Slight Normal [facility] Comment on above: Performed By: #### L [id number] ####[facility] ([facility])[address] [place] [address] MRSA/MSSA DNA NASALon 2022 MRSA DNA Negative Normal Negative [facility] Comment on above: Order Comment: Testi [...] preclude nasal colonization. Performed By: #### L [id number] ####[facility] ([facility])[address] [place] [address] MSSA DNA Negative Normal Negative [facility] Comment on above: Order Comment: Testi [...] preclude nasal colonization. Performed By: #### L [id number] ####[facility] ([facility])[address] [place] [address] Orders Onlyon 04-15-2023 Orders Only [id number] Madyson Moore 1980 F Date Provider Department [place]run 04/15/2023 RUKHSANA ESPINOZA [facility] Family History Problem Relation Age of Onset Brain cancer Mother Breast cancer Sister Kidney cancer Maternal Grandmother Prostate cancer Paternal Grandfather Cancer Father Cancer Sister Family Status - Relation Status Age at Mother Sister Maternal Grandmother Paternal Grandfather Father Sister Normal [facility] PROTIME-INRon 04-15-2023 INR IN PPP BY COAGULATION ASSAY 0.99 Normal 0.90-1.10 [facility] Comment on above: Result Comment: ACCC P [...] RANGE. CHEST 1995;108:[id number]-246S. Performed By: #### L [id number] ####[facility] ([facility])[address] [place] [address] PROTHROMBIN TIME (PT) IN PPP BY COAGULATION ASSAY 13.1 Seconds Normal 12.3-14.8 [facility] Comment on above: Performed By: #### L [id number] ####[facility] ([facility])[address] [place] [address] Follow-Upon 03-17-2023 Follow-Up [id number] Madyson Moore 1980 F Date Provider Department Center 03/17/2023 170-RUKHSANA MILLER MP PAIN [facility] Family History Problem Relation Age of Onset Brain cancer Mother Breast cancer Sister Kidney cancer Maternal Grandmother Prostate cancer Paternal Grandfather Cancer Father Cancer Sister Family Status - Relation Status Age at Mother Sister Maternal Grandmother Paternal Grandfather Father Sister Level of Service:14066 [place] OFFICE/OUTPATIENT ESTABLISHED LOW MDM 20-29 MIN Reason for Visit and Comments: Follow-up [[id number]] [facility] Orders Onlyon 03-05-2023 Orders Only [id number] Madyson Moore 1980 F Date Provider Department Center 03/05/2023 274-ARJUN MINER MP PROC Medical [facility] Family History Problem Relation Age of Onset Brain cancer Mother Breast cancer Sister Kidney cancer Maternal Grandmother Prostate cancer Paternal Grandfather Cancer Father Cancer Sister Family Status - Relation Status Age at Mother Sister Maternal Grandmother Paternal Grandfather Father Sister [facility] Follow-Upon 02-18-2023 Follow-Up [id number] Madyson Moore ma 1980 F Date Provider Department Center 02/18/2023 Abby-RUKHSANA MILLER MP PAIN Medical [facility] Family History Problem Relation Age of Onset Brain cancer Mother Breast cancer Sister Kidney cancer Maternal Grandmother Prostate cancer Paternal Grandfather Cancer Father Cancer Sister Family Status - Relation Status Age at Mother Sister Maternal Grandmother Paternal Grandfather Father Sister Level of Service:21220 [place] OFFICE/OUTPATIENT ESTABLISHED LOW MDM 20-29 MIN Reason for Visit and Comments: Follow-up [[id number]] - TANYA KLINE [facility] HPon 02-11-2023 HP History Of Present Illness [...] unremarkable. 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 Past History of Treatments: Patient has tried other professional care of: OPPT (last performed in 07/2022) Trialed medications: Ibuprofen Current Medications for Associated Pain: Lewellen 5/325, Amitriptyline 50 qhs Procedures performed previously: [...] Grandfather Cancer Father Tye Shearn Cancer Sister Januaryghtman Allergies Compazine [prochlorperazine], Desonide, Toradol [ketorolac], and [...] strength exam (more content not included)... Normal [facility] BASIC METABOLIC PANELon 05-0 Anion gap [Moles/Vol] 10 mmol/L Normal 7-20 [facility] Comment on above: Performed By: #### L [id number] #### [facility] ([facility]) [address] [place] [address] Calcium [Mass/Vol] 8.8 mg/dL Normal 8.6-10.3 [facility] Comment on above: Performed By: #### L [id number] #### [facility] [address] [place] [address] Chloride [Moles/Vol] 106 mmol/L Normal 98-107 [facility] Comment on above: Performed By: #### L [id number] #### [facility] [address] [place] [address] CO2 [Moles/Vol] 29 mmol/L Normal 21-31 [facility] Comment on above: Performed By: #### L [id number] #### [facility] ([facility]) [address] [place] [address] Creatinine [Mass/Vol] 0.72 mg/dL Normal 0.60-1.20 [facility] Comment on above: Performed By: #### L [id number] #### [facility] ([facility]) [address] [place] [address] GLOMERULAR FILTRATION RATE ML/MIN/1.73 SQ M.PREDICTED 107.7 mL/min/1.73m*2 Normal >60.0 [facility] Comment on above: Result Comment: [facility]???s estimated glomerular filtration rate (eGFR) will [...] individuals. Performed By: #### L [id number] #### [facility] [address] [place] [address] Glucose [Mass/Vol] 65 mg/dL Low 70-100 [facility] Comment on above: Performed By: #### L [id number] #### [facility] [address] [address] Potassium [Moles/Vol] 4.1 mmol/L Normal 3.5-5.1 [facility] Comment on above: Performed By: #### L [id number] #### [facility] [address] [place] [address] Sodium [Moles/Vol] 141 mmol/L Normal 136-145 [facility] Comment on above: Performed By: #### L [id number] #### [facility] [address] [place] [address] Urea nitrogen [Mass/Vol] 13 mg/dL Normal 7-25 [facility] Comment on above: Performed By: #### L [id number] #### [facility] ([facility]) [address] [address] UREA NITROGEN/CREATININE (MASS RATIO) IN SER/PLAS 18.1 Normal [facility] Comment on above: Performed By: #### L [id number] #### [facility] ([facility]) [address] [place] [address] CBCon 02-08-2023 Erythrocyte distribution width (RBC) [Ratio] 17.0 % High 11.5-15.0 [facility] Comment on above: Performed By: #### L [id number] #### [facility] [address] [place] [address] ERYTHROCYTE MEAN CORPUSCULAR HEMOGLOBIN CONCENTRATION (G/DL) BY AUTOMATED 28.3 g/dL Low 32.0-35.0 [facility] Comment on above: Performed By: #### L [id number] #### [facility] [address] [place] [address] Hematocrit (Bld) [Volume fraction] 31.8 % Low 36.0-48.0 [facility] Comment on above: Performed By: #### L [id number] #### [facility] ([facility]) [address] [place] [address] Hemoglobin (Bld) [Mass/Vol] 9.0 g/dL Low 12.0-15.0 [facility] Comment on above: Performed By: #### L [id number] #### [facility] ([facility]) [address] [place] [id number] MCH (RBC) [Entitic mass] 19.9 pg Low 27.0-33.0 [facility] Comment on above: Performed By: #### L [id number] #### [facility] ([facility]) [address] [place] [id number] MCV (RBC) [Entitic vol] 70.4 fL Low 82.0-98.0 [facility] Comment on above: Performed By: #### L [id number] #### [facility] ([facility]) [address] [place] [id number] PLATELETS (10*3/UL) IN BLOOD AUTOMATED COUNT 259 10*3/uL Normal 150-400 [facility] Comment on above: Performed By: #### L [id number] #### [facility] ([facility]) [address] [place] [id number] RBC (Bld) [#/Vol] 4.52 10*6/uL Normal 3.80-5.00 [facility] Comment on above: Performed By: #### L [id number] #### [facility] ([facility]) [address] [place] [id number] WBC (Bld) [#/Vol] 5.59 10*3/uL Normal 4.00-10.60 [facility] Comment on above: Performed By: #### L [id number] #### [facility] [address] [place] [id number] Labon 02-08-2023 Lab [id number] Madyson Moore 1980 F Date Provider Department Center 02/08/20232243-[facility] MP LAB RESOURCE MP DRAW [facility] Family History Problem Relation Age of Onset Brain cancer Mother Breast cancer Sister Kidney cancer Maternal Grandmother Prostate cancer Paternal Grandfather Cancer Father Cancer Sister Family Status - Relation Status Age at Mother Sister Maternal Grandmother Paternal Grandfather Father Sister Normal [facility] MRSA/MSSA DNA NASALon 2022 MRSA DNA Negative Normal Negative [facility] Comment on above: Performed By: #### L [id number] #### [facility] ([facility]) [address] [place] [address] MSSA DNA Negative Normal Negative [facility] Comment on above: Performed By: #### L [id number] #### [facility] ([facility]) [address] [place] [address] AMYLASEon 01-25-2023 Amylase [Catalytic activity/Vol] 64 U/L Normal 25-115 [facility] Comment on above: Performed By: #### B MP, LIPA, YVETTE, LIVER #### [facility] [address] [place] [address] Dr. Idania Roldan CBC AUTO DIFFon 01-25-2023 BASO # 0.0 103/ul Normal 0.0-0.1 [facility] Comment on above: Performed By: #### B MP, LIPA, YVETTE, LIVER #### [facility] [address] [place] [address] [address] Idania Roldan Basophils/100 WBC (Bld) 0.3 % Normal 0.2-2.0 [facility] Comment on above: Performed By: #### B MP, LIPA, YVETTE, LIVER #### [facility] [address] [address] [address] Idania Roldan EO # 0.1 103/ul Normal 0.0-0.7 [facility] Comment on above: Performed By: #### B MP, LIPA, YVETTE, LIVER #### [facility] [address] [address] [address] Idania Roldan Eosinophils/100 WBC (Bld) 1.0 % Normal 0.9-7.0 [facility] Comment on above: Performed By: #### B MP, LIPA, YVETTE, LIVER #### [facility] [address] [address] [address] Idania Roldan Erythrocyte distribution width (RBC) [Ratio] 17.2 % Critically high 11.0-15.0 [facility] [facility] Comment on above: Performed By: #### B MP, LIPA, YVETTE, LIVER #### [facility] [address] [place] [address] Dr. Idania Roldan Hematocrit (Bld) [Volume fraction] 33.9 % Critically low 36.0-48.0 [facility] Comment on above: Performed By: #### B MP, LIPA, YVETTE, LIVER #### [facility] [address] [place] [address] Dr. Idania Roldan Hemoglobin (Bld) [Mass/Vol] 10.1 g/dL Critically low 12.0-16.0 [facility] Comment on above: Performed By: #### B MP, LIPA, YVETTE, LIVER #### [facility] [address] [place] [address] Dr. Idania Roldan IG # 0.01 10e3/ul Normal 0.00-0.03 [facility] Comment on above: Performed By: #### B MP, LIPA, YVETTE, LIVER #### [facility] [address] [place] [address] Dr. Idania Roldan IG % 0.2 % Normal 0.0-0.5 [facility] Comment on above: Performed By: #### B MP, LIPA, YVETTE, LIVER #### [facility] [address] [place] [address] Dr. Idania Roldan LYMPH # 1.7 103/ul Normal 1.2-3.8 [facility] Comment on above: Performed By: #### B MP, LIPA, YVETTE, LIVER #### [facility] [address] [place] [address] Dr. Idania Roldan Lymphocytes/100 WBC (Bld) 27.9 % Normal 20.5-60.0 [facility] Comment on above: Performed By: #### B MP, LIPA, YVETTE, LIVER #### [facility] [address] [place] [address] Dr. Idania Roldan MANUAL DIFF REQ NO Normal [facility] Comment on above: Performed By: #### B MP, LIPA, YVETTE, LIVER #### [facility] [address] [place] [address] Dr. Idania Roldan MCH (RBC) [Entitic mass] 20.7 pg Critically low 26.7-34.0 [facility] Comment on above: Performed By: #### B MP, LIPA, YVETTE, LIVER #### [facility] [address] [place] [address] Dr. Idania Roldan MCHC (RBC) [Mass/Vol] 29.8 g/dL Critically low 29.9-35.2 [facility] Comment on above: Performed By: #### B MP, LIPA, YVETTE, LIVER #### [facility] [address] [place] [address] Dr. Idania Roldan MCV (RBC) [Entitic vol] 69.6 fL Critically low 81.0-99.0 [facility] Comment on above: Performed By: #### B MP, LIPA, YVETTE, LIVER #### [facility] [address] [place] [address] Dr. Idania Roldan MONO # 0.4 103/ul Normal 0.3-0.8 [facility] Comment on above: Performed By: #### B MP, LIPA, YVETTE, LIVER #### [facility] [address] [place] [address] Dr. Idania Roldan Monocytes/100 WBC (Bld) 7.1 % Normal 1.7-12.0 [facility] Comment on above: Performed By: #### B MP, LIPA, YVETTE, LIVER #### [facility] [address] [place] [address] Dr. Idania Roldan NEUT # 3.8 103/ul Normal 1.4-6.5 [facility] Comment on above: Performed By: #### B MP, LIPA, YVETTE, LIVER #### [facility] [address] [place] [address] Dr. Idania Roldan Neutrophils/100 WBC (Bld) 63.5 % Normal 43.0-75.0 [facility] Comment on above: Performed By: #### B MP, LIPA, YVETTE, LIVER #### [facility] [address] [address] [address] Idania Roldan Platelet mean volume (Bld) [Entitic vol] 9.3 fL Critically low 9.5-13.5 [facility] Comment on above: Performed By: #### B MP, LIPA, YVETTE, LIVER #### [facility] [address] [address] [address] Idania Roldan PLT 294 103/ul Normal 150-450 [facility] Comment on above: Performed By: #### B MP, LIPA, YVETTE, LIVER #### [facility] [address] [address] [address] Idania Roldan RBC 4.87 106/ul Normal 4.20-5.40 [facility] Comment on above: Performed By: #### B MP, LIPA, YVETTE, LIVER #### [facility] [address] [address] [address] Idania Roldan WBC 6.0 103/ul Normal 4.0-11.0 [facility] Comment on above: Performed By: #### B MP, LIPA, YVETTE, LIVER #### [facility] [address] [address] ABD/PELVIS WO CONon [...] VEDA BOND Date: 2023-01-25 12:20 Normal [facility] URINE PROFILEon 3 Bilirubin Ql (U) SMALL Abnormal NEGATIVE [facility] Comment on above: Performed By: #### B MP, LIPA, YVETTE, LIVER #### [facility] [address] [address] [address] Idania Roldan Clarity (U) CLEAR Normal CLEAR [facility] Comment on above: Performed By: #### B MP, LIPA, YVETTE, LIVER #### [facility] [address] [address] [address] Idania Roldan Color (U) DK. YELLOW Normal YELLOW [facility] Comment on above: Performed By: #### B MP, LIPA, YVETTE, LIVER #### [facility] [address] [address] [address] Idania Roldan ERUAHD A micrscopic examina tion will be performed if indicated. Normal [facility] Comment on above: Performed By: #### B MP, LIPA, YVETTE, LIVER #### [facility] [address] [address] [address] Idania Roldan Glucose Ql (U) Negative Normal NEGATIVE [facility] Comment on above: Performed By: #### B MP, LIPA, YVETTE, LIVER #### [facility] [address] [address] [address] Idania Roldan Hemoglobin Ql (U) LARGE Abnormal NEGATIVE [facility] Comment on above: Performed By: #### B MP, LIPA, YVETTE, LIVER #### [facility] [address] [address] [address] Idania Roldan Ketones Ql (U) TRACE Abnormal NEGATIVE [facility] Comment on above: Performed By: #### B MP, LIPA, YVETTE, LIVER #### [facility] [address] [address] [address] Idania Roldan LEUKOCYTES Negative Normal NEGATIVE [facility] Comment on above: Performed By: #### B MP, LIPA, YVETTE, LIVER #### [facility] [address] [place] [address] Dr. Idania Roldan Nitrite Ql (U) Negative Normal NEGATIVE [facility] Comment on above: Performed By: #### B MP, LIPA, YVETTE, LIVER #### [facility] [address] [place] [address] Dr. Idania Roldan pH (U) 5.0 [pH] Normal 5-9 [facility] Comment on above: Performed By: #### B MP, LIPA, YVETTE, LIVER #### [facility] [address] [place] [address] Dr. Idania Roldan SPEC GRAVITY >=1.030 Abnormal 1.005-<=1.02 5 [facility] Comment on above: Performed By: #### B MP, LIPA, YVETTE, LIVER #### [facility] [address] [place] [address] Dr. Idania Roldan UA PROTEIN TRACE Normal NEGATIVE/ TRACE [facility] Comment on above: Performed By: #### B MP, LIPA, YVETTE, LIVER #### [facility] [address] [place] [address] Dr. Idania Roldan UR MICRO IND INDICATED Normal [facility] Comment on above: Performed By: #### B MP, LIPA, YVETTE, LIVER #### [facility] [address] [place] [address] Dr. Idania Roldan Urobilinogen Qn (U) 0.2 {Bryan'U}/dL Normal 0.2 - 1. 0 [facility] Comment on above: Performed By: #### B MP, LIPA, YVETTE, LIVER #### [facility] [address] [place] [address] Dr. Idania Roldan LIPASEon 01-25-2023 Lipase [Catalytic activity/Vol] 226.0 U/L Normal 73.0-393.0 [facility] Comment on above: Performed By: #### B MP, LIPA, YVETTE, LIVER #### [facility] [address] [place] [address] Dr. Idania Roldan LIVER PROFILEon 01-25-2023 Albumin [Mass/Vol] 4.1 g/dL Normal 3.4-5.0 [facility] Comment on above: Performed By: #### B MP, LIPA, YVETTE, LIVER #### [facility] [address] [place] [address] Dr. Idania Roldan Albumin/Globulin [Mass ratio] 0.9 {ratio} Normal [facility] Comment on above: Performed By: #### B MP, LIPA, YVETTE, LIVER #### [facility] [address] [place] [address] Dr. Idania Roldan ALP [Catalytic activity/Vol] 110 U/L Normal 46-116 [facility] Comment on above: Performed By: #### B MP, LIPA, YVETTE, LIVER #### [facility] [address] [place] [address] Dr. Idania Roldan ALT [Catalytic activity/Vol] 20 U/L Normal 14-59 [facility] Comment on above: Performed By: #### B MP, LIPA, YVETTE, LIVER #### [facility] [address] [place] [address] Dr. Idania Roldan AST [Catalytic activity/Vol] 11 U/L Critically low 15-37 [facility] Comment on above: Performed By: #### B MP, LIPA, YVETTE, LIVER #### [facility] [address] [place] [address] Dr. Idania Roldan BILI, CONJUGATED 0.1 mg/dL Normal 0.0-0.2 [facility] Comment on above: Performed By: #### B MP, LIPA, YVETTE, LIVER #### [facility] [address] [place] [address] Dr. Idania Roldan Bilirubin [Mass/Vol] 0.3 mg/dL Normal 0.2-1.0 [facility] Comment on above: Performed By: #### B MP, LIPA, YVETTE, LIVER #### [facility] [address] [place] [address] Dr. Idania Roldan Globulin (S) [Mass/Vol] 4.4 g/dL Normal [facility] Comment on above: Performed By: #### B MP, LIPA, YVETTE, LIVER #### [facility] [address] [place] [address] Dr. Idania Roldan Protein [Mass/Vol] 8.5 g/dL Critically high 6.4-8.2 [facility] Comment on above: Performed By: #### B MP, LIPA, YVETTE, LIVER #### [facility] [address] [place] [address] Dr. Idania Roldan PROF CHEM 8 (BAS METB)on Anion gap [Moles/Vol] 13.5 mmol/L Normal [facility] Comment on above: Performed By: #### B MP, LIPA, YVETTE, LIVER #### [facility] [address] [place] [address] Dr. Idania Roldan Calcium [Mass/Vol] 9.3 mg/dL Normal 8.5-10.1 [facility] Comment on above: Performed By: #### B MP, LIPA, YVETTE, LIVER #### [facility] [address] [place] [address] Dr. Idania Roldan Chloride [Moles/Vol] 105 mmol/L Normal 98-107 [facility] Comment on above: Performed By: #### B MP, LIPA, YVETTE, LIVER #### [facility] [address] [place] [address] Dr. Idania Roldan CO2 [Moles/Vol] 27.2 mmol/L Normal 21.0-32.0 [facility] Comment on above: Performed By: #### B MP, LIPA, YVETTE, LIVER #### [facility] [address] [place] [address] Dr. Idania Roldan Creatinine [Mass/Vol] 0.74 mg/dL Normal 0.55-1.02 [facility] Comment on above: Performed By: #### B MP, LIPA, YVETTE, LIVER #### [facility] [address] [place] [address] Dr. Idania Roldan EGFR-AF SENEGALESE >60 Normal >=60 [facility] Comment on above: Performed By: #### B MP, LIPA, YVETTE, LIVER #### [facility] [address] [place] [address] Dr. Idania Roldan EGFR-NON AF SENEGALESE >60 Normal >=60 [facility] Comment on above: Performed By: #### B MP, LIPA, YVETTE, LIVER #### [facility] [address] [place] [address] Dr. Idania Roldan Glucose [Mass/Vol] 97 mg/dL Normal 74-106 [facility] Comment on above: Performed By: #### B MP, LIPA, YVETTE, LIVER #### [facility] [address] [place] [address] Dr. Idania Roldan Potassium [Moles/Vol] 3.7 mmol/L Normal 3.5-5.1 [facility] Comment on above: Performed By: #### B MP, LIPA, YVETTE, LIVER #### [facility] [address] [place] [address] Dr. Idania Roldan Sodium [Moles/Vol] 142 mmol/L Normal 136-145 [facility] Comment on above: Performed By: #### B MP, LIPA, YVETTE, LIVER #### [facility] [address] [place] [address] Dr. Idania Roldan Urea nitrogen [Mass/Vol] 13.0 mg/dL Normal 7.0-18.0 [facility] Comment on above: Performed By: #### B MP, LIPA, YVETTE, LIVER #### [facility] [address] [place] [address] Dr. Idania Roldan Urea nitrogen/Creatinine [Mass ratio] 17.6 mg/mg Normal [facility] Comment on above: Performed By: #### B MP, LIPA, YVETTE, LIVER #### [facility] [address] [place] [address] Dr. Idania Roldan URINE MICROSCOPIC ONLYon BACTERIA NONE SEEN Normal NONE SEEN [facility] Comment on above: Performed By: #### B MP, LIPA, YVETTE, LIVER #### [facility] [address] [address] [address] Idania Roldan Bacteria identified Cx Nom (U) NOT INDICATED Normal [facility] Comment on above: Performed By: #### B MP, LIPA, YVETTE, LIVER #### [facility] [address] [address] [address] Idania Roldan CAST NONE SEEN Normal NONE SEEN [facility] Comment on above: Performed By: #### B MP, LIPA, YVETTE, LIVER #### [facility] [address] [place] [address] Dr. Idania Roldan Crystals LM Nom (Urine sed) NONE SEEN Normal NONE SEEN [facility] Comment on above: Performed By: #### B MP, LIPA, YVETTE, LIVER #### [facility] [address] [place] [address] Dr. Idania Roldan Epithelial cells LM Ql (Urine sed) FEW Abnormal NONE SEEN /RARE [facility] Comment on above: Performed By: #### B MP, LIPA, YVETTE, LIVER #### [facility] [address] [place] [address] Dr. Idania Roldan MUCOUS NONE SEEN Normal NONE SEEN [facility] Comment on above: Performed By: #### B MP, LIPA, YVETTE, LIVER #### [facility] [address] [place] [address] Dr. Idania Roldan RBC (U) [#/Vol] /uL Abnormal 0-2 [facility] Comment on above: Performed By: #### B MP, LIPA, YVETTE, LIVER #### [facility] [address] [place] [address] Dr. Idania Roldan WBC NONE SEEN Normal NONE SEEN [facility] Comment on above: Performed By: #### B MP, LIPA, YVETTE, LIVER #### [facility] [address] [place] [address] Dr. Idania Roldan XR KUB 1 VIEWon [...] DENILSON AUSTIN Date: 2023-01-24 19:51 Normal [facility] AMYLASEon 01-21-2023 Amylase [Catalytic activity/Vol] 64 U/L Normal 25-115 [facility] Comment on above: Performed By: #### P T, PTT #### [facility] [address] [place] [address] Dr. Idania Roldan CBC AUTO DIFFon 01-21-2023 BASO # 0.0 103/ul Normal 0.0-0.1 [facility] Comment on above: Performed By: #### B MP, LIPA, YVETTE, LIVER #### [facility] [address] [place] [address] Dr. Idania Roldan Basophils/100 WBC (Bld) 0.2 % Normal 0.2-2.0 [facility] Comment on above: Performed By: #### B MP, LIPA, YVETTE, LIVER #### [facility] [address] [place] [address] Dr. Idania Roldan EO # 0.1 103/ul Normal 0.0-0.7 [facility] Comment on above: Performed By: #### B MP, LIPA, YVETTE, LIVER #### [facility] [address] [place] [address] Dr. Idania Roldan Eosinophils/100 WBC (Bld) 0.9 % Normal 0.9-7.0 [facility] Comment on above: Performed By: #### B MP, LIPA, YVETTE, LIVER #### [facility] [address] [place] [address] Dr. Idania Roldan Erythrocyte distribution width (RBC) [Ratio] 17.2 % Critically high 11.0-15.0 [facility] Comment on above: Performed By: #### B MP, LIPA, YVETTE, LIVER #### [facility] [address] [place] [address] Dr. Idania Roldan Hematocrit (Bld) [Volume fraction] 32.5 % Critically low 36.0-48.0 [facility] Comment on above: Performed By: #### B MP, LIPA, YVETTE, LIVER #### [facility] [address] [place] [address] Dr. Idania Roldan Hemoglobin (Bld) [Mass/Vol] 9.5 g/dL Critically low 12.0-16.0 [facility] Comment on above: Performed By: #### B MP, LIPA, YVETTE, LIVER #### [facility] [address] [place] [address] Dr. Idania Roldan IG # 0.01 10e3/ul Normal 0.00-0.03 [facility] Comment on above: Performed By: #### B MP, LIPA, YVETTE, LIVER #### [facility] [address] [place] [address] Dr. Idania Roldan IG % 0.2 % Normal 0.0-0.5 [facility] Comment on above: Performed By: #### B MP, LIPA, YVETTE, LIVER #### [facility] [address] [place] [address] Dr. Idania Roldan LYMPH # 2.0 103/ul Normal 1.2-3.8 [facility] Comment on above: Performed By: #### B MP, LIPA, YVETTE, LIVER #### [facility] [address] [place] [address] Dr. Idania Roldan Lymphocytes/100 WBC (Bld) 34.7 % Normal 20.5-60.0 [facility] Comment on above: Performed By: #### B MP, LIPA, YVETTE, LIVER #### [facility] [address] [place] [address] Dr. Idania Roldan MANUAL DIFF REQ NO Normal [facility] Comment on above: Performed By: #### B MP, LIPA, YVETTE, LIVER #### [facility] [address] [place] [address] Dr. Idania Roldan MCH (RBC) [Entitic mass] 20.5 pg Critically low 26.7-34.0 [facility] Comment on above: Performed By: #### B MP, LIPA, YVETTE, LIVER #### [facility] [address] [place] [address] Dr. Idania Roldan MCHC (RBC) [Mass/Vol] 29.2 g/dL Critically low 29.9-35.2 [facility] Comment on above: Performed By: #### B MP, LIPA, YVETTE, LIVER #### [facility] [address] [place] [address] Dr. Idania Roldan MCV (RBC) [Entitic vol] 70.2 fL Critically low 81.0-99.0 [facility] Comment on above: Performed By: #### B MP, LIPA, YVETTE, LIVER #### [facility] [address] [place] [address] Dr. Idania Roldan MONO # 0.5 103/ul Normal 0.3-0.8 [facility] Comment on above: Performed By: #### B MP, LIPA, YVETTE, LIVER #### [facility] [address] [place] [address] Dr. Idania Roldan Monocytes/100 WBC (Bld) 8.7 % Normal 1.7-12.0 [facility] Comment on above: Performed By: #### B MP, LIPA, YVETTE, LIVER #### [facility] [address] [place] [address] Dr. Idania Roldan NEUT # 3.2 103/ul Normal 1.4-6.5 [facility] Comment on above: Performed By: #### B MP, LIPA, YVETTE, LIVER #### [facility] [address] [place] [address] Dr. Idania Roldan Neutrophils/100 WBC (Bld) 55.3 % Normal 43.0-75.0 [facility] Comment on above: Performed By: #### B MP, LIPA, YVETTE, LIVER #### [facility] [address] [place] [address] Dr. Idania Roldan Platelet mean volume (Bld) [Entitic vol] 9.7 fL Normal 9.5-13.5 [facility] Comment on above: Performed By: #### B MP, LIPA, YVETTE, LIVER #### [facility] [address] [place] [address] Dr. Idania Roldan PLT 310 103/ul Normal 150-450 [facility] Comment on above: Performed By: #### B MP, LIPA, YVETTE, LIVER #### [facility] [address] [place] [address] Dr. Idania Roldan RBC 4.63 106/ul Normal 4.20-5.40 [facility] Comment on above: Performed By: #### B MP, LIPA, YVETTE, LIVER #### [facility] [address] [place] [address] Dr. Idania Roldan WBC 5.8 103/ul Normal 4.0-11.0 [facility] Comment on above: Performed By: #### B MP, LIPA, YVETTE, LIVER #### [facility] [address] [place] [address] Dr. Idania Roldan CULTURE URINEon 01-21-2023 CULTURE URINE Culture Observations : MODERATE GROWTH OF MIXED GENITAL ALE. NO POTENTIAL PATHOGENS SEEN. Normal [facility] Comment on above: Performed By: #### P T, PTT #### [facility] [address] [place] [address] Dr. Idania Roldan LIPASEon 01-21-2023 Lipase [Catalytic activity/Vol] 251.0 U/L Normal 73.0-393.0 [facility] Comment on above: Performed By: #### P T, PTT #### [facility] [address] [place] [address] Dr. Idania Roldan PROF 14(COMP METB)on 023 Albumin [Mass/Vol] 3.8 g/dL Normal 3.4-5.0 [facility] Comment on above: Performed By: #### P T, PTT #### [facility] [address] [place] [address] Dr. Idania Roldan Albumin/Globulin [Mass ratio] 1.0 {ratio} Normal [facility] Comment on above: Performed By: #### P T, PTT #### [facility] [address] [address] [address] Idania Roldan ALP [Catalytic activity/Vol] 107 U/L Normal 46-116 [facility] Comment on above: Performed By: #### P T, PTT #### [facility] [address] [address] [address] Idania Roldan ALT [Catalytic activity/Vol] 17 U/L Normal 14-59 [facility] Comment on above: Performed By: #### P T, PTT #### [facility] [address] [address] [address] Idania Roldan Anion gap [Moles/Vol] 13.3 mmol/L Normal [facility] Comment on above: Performed By: #### P T, PTT #### [facility] [address] [address] [address] Idania Roldan AST [Catalytic activity/Vol] 9 U/L Critically low 15-37 [facility] Comment on above: Performed By: #### P T, PTT #### [facility] [address] [address] [address] Idania Roldan Bilirubin [Mass/Vol] 0.3 mg/dL Normal 0.2-1.0 [facility] Comment on above: Performed By: #### P T, PTT #### [facility] [address] [address] [address] Idania Roldan Calcium [Mass/Vol] 9.0 mg/dL Normal 8.5-10.1 [facility] Comment on above: Performed By: #### P T, PTT #### [facility] [address] [address] [address] Idania Roldan Chloride [Moles/Vol] 103 mmol/L Normal 98-107 [facility] Comment on above: Performed By: #### P T, PTT #### [facility] [address] [address] [address] Idania Roldan CO2 [Moles/Vol] 28.2 mmol/L Normal 21.0-32.0 [facility] Comment on above: Performed By: #### P T, PTT #### [facility] [address] [address] [address] Idania Roldan Creatinine [Mass/Vol] 0.81 mg/dL Normal 0.55-1.02 [facility] Comment on above: Performed By: #### P T, PTT #### [facility] [address] [address] [address] Idania Roldan EGFR-AF SENEGALESE >60 Normal >=60 [facility] Comment on above: Performed By: #### P T, PTT #### [facility] [address] [address] [address] Idania Roldan EGFR-NON AF SENEGALESE >60 Normal >=60 [facility] Comment on above: Performed By: #### P T, PTT #### [facility] [address] [place] [address] Dr. Idania Roldan Globulin (S) [Mass/Vol] 3.9 g/dL Normal [facility] Comment on above: Performed By: #### P T, PTT #### [facility] [address] [address] [address] Idania Roldan Glucose [Mass/Vol] 93 mg/dL Normal 74-106 [facility] Comment on above: Performed By: #### P T, PTT #### [facility] [address] [place] [address] Dr. Idania Roldan Potassium [Moles/Vol] 3.5 mmol/L Normal 3.5-5.1 [facility] Comment on above: Performed By: #### P T, PTT #### [facility] [address] [address] [address] Idania Roldan Protein [Mass/Vol] 7.7 g/dL Normal 6.4-8.2 [facility] Comment on above: Performed By: #### P T, PTT #### [facility] [address] [address] [address] Idania Roldan Sodium [Moles/Vol] 141 mmol/L Normal 136-145 [facility] Comment on above: Performed By: #### P T, PTT #### [facility] [address] [place] [address] Dr. Idania Roldan Urea nitrogen [Mass/Vol] 11.0 mg/dL Normal 7.0-18.0 [facility] Comment on above: Performed By: #### P T, PTT #### [facility] [address] [place] [address] Dr. Idania Roldan Urea nitrogen/Creatinine [Mass ratio] 13.6 mg/mg Normal [facility] Comment on above: Performed By: #### P T, PTT #### [facility] [address] [place] [address] Dr. Idania Roldan UA RANDOM W/MICROSCOPICon BACTERIA SMALL Abnormal NONE SEEN [facility] Comment on above: Performed By: #### B MP, LIPA, YVETTE, LIVER #### [facility] [address] [place] [address] Dr. Idania Roldan Bilirubin Ql (U) SMALL Abnormal NEGATIVE [facility] Comment on above: Performed By: #### B MP, LIPA, YVETTE, LIVER #### [facility] [address] [place] [address] Dr. Idania Roldan CAST NONE SEEN Normal NONE SEEN [facility] Comment on above: Performed By: #### B MP, LIPA, YVETTE, LIVER #### [facility] [address] [place] [address] Dr. Idania Roldan Clarity (U) CLEAR Normal CLEAR [facility] Comment on above: Performed By: #### B MP, LIPA, YVETTE, LIVER #### [facility] [address] [place] [address] Dr. Idania Roldan Color (U) DK. YELLOW Normal YELLOW [facility] Comment on above: Performed By: #### B MP, LIPA, YVETTE, LIVER #### [facility] [address] [place] [address] Dr. Idania Roldan Crystals LM Nom (Urine sed) NONE SEEN Normal NONE SEEN [facility] Comment on above: Performed By: #### B MP, LIPA, YVETTE, LIVER #### [facility] [address] [address] [address] Idania Roldan Epithelial cells LM Ql (Urine sed) FEW Abnormal NONE SEEN /RARE [facility] Comment on above: Performed By: #### B MP, LIPA, YVETTE, LIVER #### [facility] [address] [place] [address] Dr. Idania Roldan Glucose Ql (U) Negative Normal NEGATIVE [facility] Comment on above: Performed By: #### B MP, LIPA, YVETTE, LIVER #### [facility] [address] [address] [address] Idania Roldan Hemoglobin Ql (U) LARGE Abnormal NEGATIVE [facility] Comment on above: Performed By: #### B MP, LIPA, YVETTE, LIVER #### [facility] [address] [place] [address] Dr. Idania Roldan Ketones Ql (U) TRACE Abnormal NEGATIVE [facility] Comment on above: Performed By: #### B MP, LIPA, YVETTE, LIVER #### [facility] [address] [place] [address] Dr. Idania Roldan LEUKOCYTES Negative Normal NEGATIVE [facility] Comment on above: Performed By: #### B MP, LIPA, YVETTE, LIVER #### [facility] [address] [place] [address] Dr. Idania Roldan MUCOUS MODERATE Abnormal NONE SEEN [facility] Comment on above: Performed By: #### B MP, LIPA, YVETTE, LIVER #### [facility] [address] [place] [address] Dr. Idania Roldan Nitrite Ql (U) Negative Normal NEGATIVE [facility] Comment on above: Performed By: #### B MP, LIPA, YVETTE, LIVER #### [facility] [address] [address] [address] Idania Roldan pH (U) 5.0 [pH] Normal 5-9 [facility] Comment on above: Performed By: #### B MP, LIPA, YVETTE, LIVER #### [facility] [address] [place] [address] Dr. Idania Roldan RBC (U) [#/Vol] /uL Abnormal 0-2 [facility] Comment on above: Performed By: #### B MP, LIPA, YVETTE, LIVER #### [facility] [address] [place] [address] Dr. Idania Roldan SPEC GRAVITY >=1.030 Abnormal 1.005-<=1.02 5 [facility] Comment on above: Performed By: #### B MP, LIPA, YVETTE, LIVER #### [facility] [address] [place] [address] Dr. Idania Roldan UA PROTEIN TRACE Normal NEGATIVE/ TRACE [facility] Comment on above: Performed By: #### B MP, LIPA, YVETTE, LIVER #### [facility] [address] [place] [address] Dr. Idania Roldan Urobilinogen Qn (U) 0.2 {Bryan'U}/dL Normal 0.2 - 1. 0 [facility] Comment on above: Performed By: #### B MP, LIPA, YVETTE, LIVER #### [facility] [address] [place] [address] Dr. Idania Roldan WBC 0-2 Abnormal NONE SEEN [facility] Comment on above: Performed By: #### B MP, LIPA, YVETTE, LIVER #### [facility] [address] [place] [address] Dr. Idania Roldan [facility]on [facility]11 SARS-CoV-2 (COVID-19) RNA MAMIE+probe Ql (Unsp spec) Detected Critically abnormal NOT DETECTED [facility] Comment on above: Result Comment: This test is not yet approved or cleared by the [place] FDA. When there are no FDA-approved or cleared tests available, and other criteria are met, FDA can make tests available under an emergency access mechanism called an Emergency Use Authorization (EUA). The EUA for this test is supported by the Titrator of Health and Human Service's (HHS's) declaration [...] longer be used). Performed By: #### C VDTB #### [facility] [address] [place] [address] Dr. Idania Roldan INFLUENZA A AND B AGon 10-06 [facility] SEE BELOW Normal [facility] Comment on above: Result Comment: Nega tive for Flu A protein angiten. Infection due to Flu A cannot be ruled out. Flu A angiten in the sample may be below the detection limit of the test. Performed By: #### P T, PTT #### [facility] [address] [place] [address] Dr. Idania Roldan INFLUBNEG SEE BELOW Normal [facility] Comment on above: Result Comment: Nega tive for Flu B protein antigen. Infection due to Flu B cannot be ruled out. Flu B antigen in the sample may be below the detection limit of the test. Performed By: #### P T, PTT #### [facility] [address] [place] [address] Dr. Idania Roldan INFLUENZA A AG Negative Normal NEGATIVE SEE COMMENT [facility] Comment on above: Performed By: #### P T, PTT #### [facility] [address] [place] [address] Dr. Idania Roldan INFLUENZA B AG Negative Normal NEGATIVE SEE COMMENT [facility] Comment on above: Performed By: #### P T, PTT #### [facility] [address] [place] [address] Dr. Idanai Roldan INTERNAL CONTROLS Within Normal Limits Normal Wi thin Normal Limits [facility] Comment on above: Performed By: #### P T, PTT #### [facility] [address] [place] [address] Dr. Idania Roldan AMYLASEon 09-30-2022 Amylase [Catalytic activity/Vol] 62 U/L Normal 25-115 [facility] Comment on above: Performed By: #### B MP, LIPA, YVETTE, LIVER #### [facility] [address] [place] [address] Dr. Idania Roldan CBC AUTO DIFFon 09-30-2022 BASO # 0.0 103/ul Normal 0.0-0.1 [facility] Comment on above: Performed By: #### C BC #### [facility] [address] [place] [address] Dr. Idania Roldan Basophils/100 WBC (Bld) 0.3 % Normal 0.2-2.0 [facility] Comment on above: Performed By: #### C BC #### [facility] [address] [place] [address] Dr. Idania Roldan EO # 0.1 103/ul Normal 0.0-0.7 [facility] Comment on above: Performed By: #### C BC #### [facility] [address] [place] [address] Dr. Idania Roldan Eosinophils/100 WBC (Bld) 1.2 % Normal 0.9-7.0 [facility] Comment on above: Performed By: #### C BC #### [facility] [address] [place] [address] Dr. Idania Roldan Erythrocyte distribution width (RBC) [Ratio] 14.8 % Normal 11.0-15.0 [facility] Comment on above: Performed By: #### C BC #### [facility] [address] [place] [address] Dr. Idania Roldan Hematocrit (Bld) [Volume fraction] 31.8 % Critically low 36.0-48.0 [facility] Comment on above: Performed By: #### C BC #### [facility] [address] [place] [address] Dr. Idania Roldan Hemoglobin (Bld) [Mass/Vol] 9.6 g/dL Critically low 12.0-16.0 [facility] Comment on above: Performed By: #### C BC #### [facility] [address] [place] [address] Dr. Idania Roldan IG # 0.01 10e3/ul Normal 0.00-0.03 [facility] Comment on above: Performed By: #### C BC #### [facility] [address] [place] [address] Dr. Idania Roldan IG % 0.1 % Normal 0.0-0.5 [facility] Comment on above: Performed By: #### C BC #### [facility] [address] [place] [address] Dr. Idania Roldan LYMPH # 3.3 103/ul Normal 1.2-3.8 [facility] Comment on above: Performed By: #### C BC #### [facility] [address] [place] [address] Dr. Idania Roldan Lymphocytes/100 WBC (Bld) 45.4 % Normal 20.5-60.0 [facility] Comment on above: Performed By: #### C BC #### [facility] [address] [place] [address] Dr. Idania Roldan MANUAL DIFF REQ NO Normal [facility] Comment on above: Performed By: #### C BC #### [facility] [address] [place] [address] Dr. Idania Roldan MCH (RBC) [Entitic mass] 22.7 pg Critically low 26.7-34.0 [facility] Comment on above: Performed By: #### C BC #### [facility] [address] [place] [address] Dr. Idania Roldan MCHC (RBC) [Mass/Vol] 30.2 g/dL Normal 29.9-35.2 [facility] Comment on above: Performed By: #### C BC #### [facility] [address] [place] [address] Dr. Idania Roldan MCV (RBC) [Entitic vol] 75.4 fL Critically low 81.0-99.0 [facility] Comment on above: Performed By: #### C BC #### [facility] [address] [place] [address] Dr. Idania Roldan MONO # 0.5 103/ul Normal 0.3-0.8 [facility] Comment on above: Performed By: #### C BC #### [facility] [address] [place] [address] Dr. Idania Roldan Monocytes/100 WBC (Bld) 6.2 % Normal 1.7-12.0 [facility] Comment on above: Performed By: #### C BC #### [facility] [address] [place] [address] Dr. Idania Roldan NEUT # 3.4 103/ul Normal 1.4-6.5 [facility] Comment on above: Performed By: #### C BC #### [facility] [address] [place] [address] Dr. Idania Roldan Neutrophils/100 WBC (Bld) 46.8 % Normal 43.0-75.0 [facility] Comment on above: Performed By: #### C BC #### [facility] [address] [place] [address] Dr. Idania Roldan Platelet mean volume (Bld) [Entitic vol] 8.5 fL Critically low 9.5-13.5 [facility] Comment on above: Performed By: #### C BC #### [facility] [address] [place] [address] Dr. Idania Roldan PLT 273 103/ul Normal 150-450 [facility] Comment on above: Performed By: #### C BC #### [facility] [address] [place] [address] Dr. Idania Roldan RBC 4.22 106/ul Normal 4.20-5.40 [facility] Comment on above: Performed By: #### C BC #### [facility] [address] [place] [address] Dr. Idania Roldan WBC 7.2 103/ul Normal 4.0-11.0 [facility] Comment on above: Performed By: #### C BC #### [facility] [address] [place] [address] Dr. Idania Roldan CULTURE URINEon 09-30-2022 CULTURE URINE Culture Observations : MODERATE GROWTH OF MIXED GENITAL ALE. NO POTENTIAL PATHOGENS SEEN. Normal [facility] Comment on above: Performed By: #### P T, PTT #### [facility] [address] [place] [address] Dr. Idania Roldan LIPASEon 09-30-2022 Lipase [Catalytic activity/Vol] 256.0 U/L Normal 73.0-393.0 [facility] Comment on above: Performed By: #### B MP, LIPA, YVETTE, LIVER #### [facility] [address] [place] [address] Dr. Idania Roldan PROF 14(COMP METB)on 022 Albumin [Mass/Vol] 4.1 g/dL Normal 3.4-5.0 [facility] Comment on above: Performed By: #### B MP, LIPA, YVETTE, LIVER #### [facility] [address] [place] [address] Dr. Idania Roldan Albumin/Globulin [Mass ratio] 1.0 {ratio} Normal [facility] Comment on above: Performed By: #### B MP, LIPA, YVETTE, LIVER #### [facility] [address] [place] [address] Dr. Idania Roldan ALP [Catalytic activity/Vol] 93 U/L Normal 46-116 [facility] Comment on above: Performed By: #### B MP, LIPA, YVETTE, LIVER #### [facility] [address] [place] [address] Dr. Idania Roldan ALT [Catalytic activity/Vol] 13 U/L Critically low 14-59 [facility] Comment on above: Performed By: #### B MP, LIPA, YVETTE, LIVER #### [facility] [address] [place] [address] Dr. Idania Roldan Anion gap [Moles/Vol] 9.8 mmol/L Normal [facility] Comment on above: Performed By: #### B MP, LIPA, YVETTE, LIVER #### [facility] [address] [place] [address] Dr. Idania Roldan AST [Catalytic activity/Vol] 12 U/L Critically low 15-37 [facility] Comment on above: Performed By: #### B MP, LIPA, YVETTE, LIVER #### [facility] [address] [place] [address] Dr. Idania Roldan Bilirubin [Mass/Vol] 0.2 mg/dL Normal 0.2-1.0 [facility] Comment on above: Performed By: #### B MP, LIPA, YVETTE, LIVER #### [facility] [address] [address] [address] Idania Roldan Calcium [Mass/Vol] 9.2 mg/dL Normal 8.5-10.1 [facility] Comment on above: Performed By: #### B MP, LIPA, YVETTE, LIVER #### [facility] [address] [place] [address] Dr. Idania Roldan Chloride [Moles/Vol] 101 mmol/L Normal 98-107 [facility] Comment on above: Performed By: #### B MP, LIPA, YVETTE, LIVER #### [facility] [address] [place] [address] Dr. Idania Roldan CO2 [Moles/Vol] 31.8 mmol/L Normal 21.0-32.0 [facility] Comment on above: Performed By: #### B MP, LIPA, YVETTE, LIVER #### [facility] [address] [place] [address] Dr. Idania Roldan Creatinine [Mass/Vol] 0.71 mg/dL Normal 0.55-1.02 [facility] Comment on above: Performed By: #### B MP, LIPA, YVETTE, LIVER #### [facility] [address] [place] [address] Dr. Idania Roldan EGFR-AF SENEGALESE >60 Normal >=60 [facility] Comment on above: Performed By: #### B MP, LIPA, YVETTE, LIVER #### [facility] [address] [place] [address] Dr. Idania Roldan EGFR-NON AF S[place]ESE >60 Normal >=60 [facility] Comment on above: Performed By: #### B MP, LIPA, YVETTE, LIVER #### [facility] [address] [place] [address] Dr. Idania Roldan Globulin (S) [Mass/Vol] 4.0 g/dL Normal [facility] Comment on above: Performed By: #### B MP, LIPA, YVETTE, LIVER #### [facility] [address] [place] [address] Dr. Idania Roldan Glucose [Mass/Vol] 92 mg/dL Normal 74-106 [facility] Comment on above: Performed By: #### B MP, LIPA, YVETTE, LIVER #### [facility] [address] [address] [address] Idania Roldan Potassium [Moles/Vol] 3.6 mmol/L Normal 3.5-5.1 [facility] Comment on above: Performed By: #### B MP, LIPA, YVETTE, LIVER #### [facility] [address] [address] [address] Idania Roldan Protein [Mass/Vol] 8.1 g/dL Normal 6.4-8.2 [facility] Comment on above: Performed By: #### B MP, LIPA, YVETTE, LIVER #### [facility] [address] [address] [address] Idania Roldan Sodium [Moles/Vol] 139 mmol/L Normal 136-145 [facility] Comment on above: Performed By: #### B MP, LIPA, YVETTE, LIVER #### [facility] [address] [address] [address] Idania Roldan Urea nitrogen [Mass/Vol] 15.0 mg/dL Normal 7.0-18.0 [facility] Comment on above: Performed By: #### B MP, LIPA, YVETTE, LIVER #### [facility] [address] [place] [address] Dr. Idania Roldan Urea nitrogen/Creatinine [Mass ratio] 21.1 mg/mg Normal [facility] Comment on above: Performed By: #### B MP, LIPA, YVETTE, LIVER #### [facility] [address] [place] [address] Dr. Idania Roldan UA RANDOM W/MICROSCOPICon BACTERIA SMALL Abnormal NONE SEEN [facility] Comment on above: Performed By: #### B MP, LIPA, YVETTE, LIVER #### [facility] [address] [place] [address] Dr. Idania Roldan Bilirubin Ql (U) Negative Normal NEGATIVE [facility] Comment on above: Performed By: #### B MP, LIPA, YVETTE, LIVER #### [facility] [address] [address] [address] Idania Roldan CAST NONE SEEN Normal NONE SEEN [facility] Comment on above: Performed By: #### B MP, LIPA, YVETTE, LIVER #### [facility] [address] [address] [address] Idania Roldan Clarity (U) CLEAR Normal CLEAR [facility] Comment on above: Performed By: #### B MP, LIPA, YVETTE, LIVER #### [facility] [address] [address] [address] Idania Roldan Color (U) YELLOW Normal YELLOW [facility] Comment on above: Performed By: #### B MP, LIPA, YVETTE, LIVER #### [facility] [address] [place] [address] Dr. Idania Roldan Crystals LM Nom (Urine sed) NONE SEEN Normal NONE SEEN [facility] Comment on above: Performed By: #### B MP, LIPA, YVETTE, LIVER #### [facility] [address] [place] [address] Dr. Idania Roldan Epithelial cells LM Ql (Urine sed) FEW Abnormal NONE SEEN /RARE [facility] Comment on above: Performed By: #### B MP, LIPA, YVETTE, LIVER #### [facility] [address] [place] [address] Dr. Idania Roldan Glucose Ql (U) Negative Normal NEGATIVE [facility] Comment on above: Performed By: #### B MP, LIPA, YVETTE, LIVER #### [facility] [address] [place] [address] Dr. Idania Roldan Hemoglobin Ql (U) Negative Normal NEGATIVE [facility] Comment on above: Performed By: #### B MP, LIPA, YVETTE, LIVER #### [facility] [address] [place] [address] Dr. Idania Roldan Ketones Ql (U) Negative Normal NEGATIVE [facility] Comment on above: Performed By: #### B MP, LIPA, YVETTE, LIVER #### [facility] [address] [place] [address] Dr. Idania Roldan LEUKOCYTES SMALL Abnormal NEGATIVE [facility] Comment on above: Performed By: #### B MP, LIPA, YVETTE, LIVER #### [facility] [address] [place] [address] Dr. Idania Roldan MUCOUS TRACE Abnormal NONE SEEN [facility] Comment on above: Performed By: #### B MP, LIPA, YVETTE, LIVER #### [facility] [address] [place] [address] Dr. Idania Roldan Nitrite Ql (U) Negative Normal NEGATIVE [facility] Comment on above: Performed By: #### B MP, LIPA, YVETTE, LIVER #### [facility] [address] [place] [address] Dr. Idania Roldan pH (U) 7.0 [pH] Normal 5-9 [facility] Comment on above: Performed By: #### B MP, LIPA, YVETTE, LIVER #### [facility] [address] [place] [address] Dr. Idania Roldan RBC NONE SEEN Abnormal 0-2 [facility] Comment on above: Performed By: #### B MP, LIPA, YVETTE, LIVER #### [facility] [address] [place] [address] Dr. Idania Roldan SPEC GRAVITY 1.015 Normal 1.005-<=1.02 5 [facility] Comment on above: Performed By: #### B MP, LIPA, YVETTE, LIVER #### [facility] [address] [place] [address] Dr. Idania Roldan UA PROTEIN Negative Normal NEGATIVE/ TRACE [facility] Comment on above: Performed By: #### B MP, LIPA, YVETTE, LIVER #### [facility] [address] [place] [address] Dr. Idania Roldan Urobilinogen Qn (U) 0.2 {Bryan'U}/dL Normal 0.2 - 1. 0 [facility] Comment on above: Performed By: #### B MP, LIPA, YVETTE, LIVER #### [facility] [address] [place] [address] Dr. Idania Roldan WBC 5-10 Abnormal NONE SEEN [facility] Comment on above: Performed By: #### B JOSE ALBERTO MOCTEZUMA AMY, LIVER #### [facility] [address] [place] [address] Dr. Idania Roldan Covid-19 PCR ([facility])on 09-10 SARS-CoV-2 (COVID-19) RNA MAMIE+probe Ql (Unsp spec) Not detected Normal NOT DETECTED [facility] Comment on above: Result Comment: This test is not yet approved or cleared by the [place] FDA. When there are no FDA-approved or cleared tests available, and other criteria are met, FDA can make tests available under an emergency access mechanism called an Emergency Use Authorization (EUA). The EUA for this test is supported by the Tit[place] of Health and Human Service's (HHS's) declaration [...] SARS-CoV-2. Performed By: #### C VDTBH #### [facility] [address] [place] [address] Dr. Idania Roldan INFLUENZA A AND B AGon 09-21 INFLUANEGH SEE BELOW Normal [facility] Comment on above: Result Comment: Nega tive for Flu A protein angiten. Infection due to Flu A cannot be ruled out. Flu A angiten in the sample may be below the detection limit of the test. Performed By: #### B JOSE ALBERTO MOCTEZUMA AMY, LIVER #### [facility] [address] [place] [address] Dr. Idania Roldan INFLUBNEG SEE BELOW Normal [facility] Comment on above: Result Comment: Nega tive for Flu B protein antigen. Infection due to Flu B cannot be ruled out. Flu B antigen in the sample may be below the detection limit of the test. Performed By: #### B MP, LIPA, YVETTE, LIVER #### [facility] [address] [address] [address] Idania Roldan INFLUENZA A AG Negative Normal NEGATIVE SEE COMMENT [facility] Comment on above: Performed By: #### B MP, LIPA, YVETTE, LIVER #### [facility] [address] [address] [address] Idania Roldan INFLUENZA B AG Negative Normal NEGATIVE SEE COMMENT [facility] Comment on above: Performed By: #### B MP, LIPA, YVETTE, LIVER #### [facility] [address] [address] [address] Idania Roldan INTERNAL CONTROLS Within Normal Limits Normal Wi thin Normal Limits [facility] Comment on above: Performed By: #### B MP, LIPA, YVETTE, LIVER #### [facility] [address] [address] [address] Idania Roldan [facility]11 SARS-CoV-2 (COVID-19) RNA MAMIE+probe Ql (Unsp spec) Not detected Normal NOT DETECTED [facility] Comment on above: Result Comment: This test is not yet approved or cleared by the [place] FDA. When there are no FDA-approved or cleared tests available, and other criteria are met, FDA can make tests available under an emergency access mechanism called an Emergency Use Authorization (EUA). The EUA for this test is supported by the [place] of Health and Human Service's (HHS's) declaration [...] #### B MP, LIPA, YVETTE, LIVER #### [facility] [address] [place] [address] Dr. Idania Roldan CBC AUTO DIFFon 08-21-2022 BASO # 0.0 103/ul Normal 0.0-0.1 [facility] Comment on above: Performed By: #### P T, PTT #### [facility] [address] [place] [address] Dr. Idania Roldan Basophils/100 WBC (Bld) 0.4 % Normal 0.2-2.0 [facility] Comment on above: Performed By: #### P T, PTT #### [facility] [address] [place] [address] Dr. Idania Roldan EO # 0.1 103/ul Normal 0.0-0.7 [facility] Comment on above: Performed By: #### P T, PTT #### [facility] [address] [place] [address] Dr. Idania Roldan Eosinophils/100 WBC (Bld) 1.3 % Normal 0.9-7.0 [facility] Comment on above: Performed By: #### P T, PTT #### [facility] [address] [place] [address] Dr. Idania Roldan Erythrocyte distribution width (RBC) [Ratio] 15.3 % Critically high 11.0-15.0 [facility] Comment on above: Performed By: #### P T, PTT #### [facility] [address] [place] [address] Dr. Idania Roldan Hematocrit (Bld) [Volume fraction] 32.1 % Critically low 36.0-48.0 [facility] Comment on above: Performed By: #### P T, PTT #### [facility] [address] [place] [address] Dr. Idania Roldan Hemoglobin (Bld) [Mass/Vol] 9.9 g/dL Critically low 12.0-16.0 [facility] Comment on above: Performed By: #### P T, PTT #### [facility] [address] [place] [address] Dr. Idania Roldan IG # 0.01 10e3/ul Normal 0.00-0.03 [facility] Comment on above: Performed By: #### P T, PTT #### [facility] [address] [place] [address] Dr. Idania Roldan IG % 0.1 % Normal 0.0-0.5 [facility] Comment on above: Performed By: #### P T, PTT #### [facility] [address] [place] [address] Dr. Idania Roldan LYMPH # 2.7 103/ul Normal 1.2-3.8 [facility] Comment on above: Performed By: #### P T, PTT #### [facility] [address] [place] [address] Dr. Idania Roldan Lymphocytes/100 WBC (Bld) 35.7 % Normal 20.5-60.0 [facility] Comment on above: Performed By: #### P T, PTT #### [facility] [address] [place] [address] Dr. Idania Roldan MANUAL DIFF REQ NO Normal [facility] Comment on above: Performed By: #### P T, PTT #### [facility] [address] [place] [address] Dr. Idania Roldan MCH (RBC) [Entitic mass] 24.8 pg Critically low 26.7-34.0 [facility] Comment on above: Performed By: #### P T, PTT #### [facility] [address] [place] [address] Dr. Idania Roldan MCHC (RBC) [Mass/Vol] 30.8 g/dL Normal 29.9-35.2 [facility] Comment on above: Performed By: #### P T, PTT #### [facility] [address] [place] [address] Dr. Idania Roldan MCV (RBC) [Entitic vol] 80.5 fL Critically low 81.0-99.0 [facility] Comment on above: Performed By: #### P T, PTT #### [facility] [address] [place] [address] Dr. Idania Roldan MONO # 0.5 103/ul Normal 0.3-0.8 [facility] Comment on above: Performed By: #### P T, PTT #### [facility] [address] [place] [address] Dr. Idania Roldan Monocytes/100 WBC (Bld) 6.1 % Normal 1.7-12.0 [facility] Comment on above: Performed By: #### P T, PTT #### [facility] [address] [place] [address] Dr. Idania Roldan NEUT # 4.2 103/ul Normal 1.4-6.5 [facility] Comment on above: Performed By: #### P T, PTT #### [facility] [address] [place] [address] Dr. Idania Roldan Neutrophils/100 WBC (Bld) 56.4 % Normal 43.0-75.0 [facility] Comment on above: Performed By: #### P T, PTT #### [facility] [address] [place] [address] Dr. Idania Roldan Platelet mean volume (Bld) [Entitic vol] 9.4 fL Critically low 9.5-13.5 [facility] Comment on above: Performed By: #### P T, PTT #### [facility] [address] [place] [address] Dr. Idania Roldan PLT 296 103/ul Normal 150-450 [facility] Comment on above: Performed By: #### P T, PTT #### [facility] [address] [place] [address] Dr. Idania Roldan RBC 3.99 106/ul Critically low 4.20-5.40 [facility] Comment on above: Performed By: #### P T, PTT #### [facility] [address] [place] [address] Dr. Idania Roldan WBC 7.5 103/ul Normal 4.0-11.0 [facility] Comment on above: Performed By: #### P T, PTT #### [facility] [address] [place] [address] ABD/PELV W CONon [...] RUSSELL DUFF Date: 2022-08-21 12:35 Normal [facility] ER URINE PROFILEon 2 Bilirubin Ql (U) Unable to perform te sting due to color interference. Abnormal NEGATIVE [facility] Comment on above: Performed By: #### B MP, LIPA, YVETTE, LIVER #### [facility] [address] [address] [address] Idania Roldan Clarity (U) TURBID Abnormal CLEAR [facility] Comment on above: Performed By: #### B MP, LIPA, YVETTE, LIVER #### [facility] [address] [address] [address] Idania Roldan Color (U) RED Abnormal YELLOW [facility] Comment on above: Performed By: #### B MP, LIPA, YVETTE, LIVER #### [facility] [address] [address] [address] Idania Roldan ERULULI A micrscopic examina tion will be performed if indicated. Normal [facility] Comment on above: Performed By: #### B MP, LIPA, YVETTE, LIVER #### [facility] [address] [address] [address] Idania Roldan Glucose Ql (U) Unable to perform te sting due to color interference. Abnormal NEGATIVE [facility] Comment on above: Performed By: #### B MP, LIPA, YVETTE, LIVER #### [facility] [address] [address] [address] Idania Roldan Hemoglobin Ql (U) Unable to perform te sting due to color interference. Abnormal NEGATIVE [facility] Comment on above: Performed By: #### B MP, LIPA, YVETTE, LIVER #### [facility] [address] [place] [address] Dr. Idania Roldan Ketones Ql (U) Unable to perform te sting due to color interference. Abnormal NEGATIVE [facility] Comment on above: Performed By: #### B MP, LIPA, YVETTE, LIVER #### [facility] [address] [place] [address] Dr. Idania Roldan LEUKOCYTES Unable to perform te sting due to color interference. Abnormal NEGATIVE [facility] Comment on above: Performed By: #### B MP, LIPA, YVETTE, LIVER #### [facility] [address] [place] [address] Dr. Idania Roldan Nitrite Ql (U) Unable to perform te sting due to color interference. Abnormal NEGATIVE [facility] Comment on above: Performed By: #### B MP, LIPA, YVETTE, LIVER #### [facility] [address] [address] [address] Idania Roldan pH Unable to perform te sting due to color interference. Abnormal 5-9 [facility] Comment on above: Performed By: #### B MP, LIPA, YVETTE, LIVER #### [facility] [address] [place] [address] Dr. Idania Roldan SPEC GRAVITY 1.020 Normal 1.005-<=1.02 5 [facility] Comment on above: Performed By: #### B MP, LIPA, YVETTE, LIVER #### [facility] [address] [place] [address] Dr. Idania Roldan UA PROTEIN Unable to perform te sting due to color interference. Normal NEGATIVE/ TRACE [facility] Comment on above: Performed By: #### B MP, LIPA, YVETTE, LIVER #### [facility] [address] [place] [address] Dr. Idania Roldan UR MICRO IND INDICATED Normal [facility] Comment on above: Performed By: #### B MP, LIPA, YVETTE, LIVER #### [facility] [address] [place] [address] Dr. Idania Roldan UROBILINOGEN Unable to perform te sting due to color interference. Normal 0.2 - 1.0 [facility] Comment on above: Performed By: #### B MP, LIPA, YVETTE, LIVER #### [facility] [address] [place] [address] Dr. Idania Roldan PROF 14(COMP METB)on 022 Albumin [Mass/Vol] 4.2 g/dL Normal 3.4-5.0 [facility] Comment on above: Performed By: #### P T, PTT #### [facility] [address] [place] [address] Dr. Idania Roldan Albumin/Globulin [Mass ratio] 1.0 {ratio} Normal [facility] Comment on above: Performed By: #### P T, PTT #### [facility] [address] [place] [address] Dr. Idania Roldan ALP [Catalytic activity/Vol] 91 U/L Normal 46-116 [facility] Comment on above: Performed By: #### P T, PTT #### [facility] [address] [place] [address] Dr. Idania Roldan ALT [Catalytic activity/Vol] 15 U/L Normal 14-59 [facility] Comment on above: Performed By: #### P T, PTT #### [facility] [address] [place] [address] Dr. Idania Roldan Anion gap [Moles/Vol] 9.6 mmol/L Normal [facility] Comment on above: Performed By: #### P T, PTT #### [facility] [address] [place] [address] Dr. Idania Roldan AST [Catalytic activity/Vol] 14 U/L Critically low 15-37 [facility] Comment on above: Performed By: #### P T, PTT #### [facility] [address] [place] [address] Dr. Idania Roldan Bilirubin [Mass/Vol] 0.2 mg/dL Normal 0.2-1.0 [facility] Comment on above: Performed By: #### P T, PTT #### [facility] [address] [place] [address] Dr. Idania Roldan Calcium [Mass/Vol] 9.2 mg/dL Normal 8.5-10.1 [facility] Comment on above: Performed By: #### P T, PTT #### [facility] [address] [place] [address] Dr. Idania Roldan Chloride [Moles/Vol] 103 mmol/L Normal 98-107 [facility] Comment on above: Performed By: #### P T, PTT #### [facility] [address] [place] [address] Dr. Idania Roldan CO2 [Moles/Vol] 31.2 mmol/L Normal 21.0-32.0 [facility] Comment on above: Performed By: #### P T, PTT #### [facility] [address] [place] [address] Dr. Idania Roldan Creatinine [Mass/Vol] 0.76 mg/dL Normal 0.55-1.02 [facility] Comment on above: Performed By: #### P T, PTT #### [facility] [address] [place] [address] Dr. Idania Roldan EGFR-AF SENEGALESE >60 Normal >=60 [facility] Comment on above: Performed By: #### P T, PTT #### [facility] [address] [place] [address] Dr. Idania Roldan EGFR-NON AF SENEGALESE >60 Normal >=60 [facility] Comment on above: Performed By: #### P T, PTT #### [facility] [address] [place] [address] Dr. Idania Roldan Globulin (S) [Mass/Vol] 4.2 g/dL Normal [facility] Comment on above: Performed By: #### P T, PTT #### [facility] [address] [place] [address] Dr. Idania Roldan Glucose [Mass/Vol] 107 mg/dL Critically high 74-106 [facility] Comment on above: Performed By: #### P T, PTT #### [facility] [address] [place] [address] Dr. Idania Roldan Potassium [Moles/Vol] 3.8 mmol/L Normal 3.5-5.1 [facility] Comment on above: Performed By: #### P T, PTT #### [facility] [address] [place] [address] Dr. Idania Roldan Protein [Mass/Vol] 8.4 g/dL Critically high 6.4-8.2 [facility] Comment on above: Performed By: #### P T, PTT #### [facility] [address] [place] [address] Dr. Idania Roldan Sodium [Moles/Vol] 140 mmol/L Normal 136-145 [facility] Comment on above: Performed By: #### P T, PTT #### [facility] [address] [place] [address] Dr. Idania Roldan Urea nitrogen [Mass/Vol] 12.0 mg/dL Normal 7.0-18.0 [facility] Comment on above: Performed By: #### P T, PTT #### [facility] [address] [place] [address] Dr. Idania Roldan Urea nitrogen/Creatinine [Mass ratio] 15.8 mg/mg Normal [facility] Comment on above: Performed By: #### P T, PTT #### [facility] [address] [place] [address] Dr. Idania Roldan URINE MICROSCOPIC ONLYon BACTERIA NONE SEEN Normal NONE SEEN [facility] Comment on above: Performed By: #### B MP, LIPA, YVETTE, LIVER #### [facility] [address] [place] [address] Dr. Idania Roldan Bacteria identified Cx Nom (U) NOT INDICATED Normal [facility] Comment on above: Performed By: #### B MP, LIPA, YVETTE, LIVER #### [facility] [address] [place] [address] Dr. Idania Roldan CAST NONE SEEN Normal NONE SEEN [facility] Comment on above: Performed By: #### B MP, LIPA, YVETTE, LIVER #### [facility] [address] [place] [address] Dr. Idania Roldan Crystals LM Nom (Urine sed) NONE SEEN Normal NONE SEEN [facility] Comment on above: Performed By: #### B MP, LIPA, YVETTE, LIVER #### [facility] [address] [place] [address] Dr. Idania Roldan Epithelial cells LM Ql (Urine sed) RARE Normal NONE SEEN /RARE [facility] Comment on above: Performed By: #### B MP, LIPA, YVETTE, LIVER #### [facility] [address] [place] [address] Dr. Idania Roldan MUCOUS NONE SEEN Normal NONE SEEN [facility] Comment on above: Performed By: #### B MP, LIPA, YVETTE, LIVER #### [facility] [address] [place] [address] Dr. Idania Roldan RBC (U) [#/Vol] /uL Abnormal 0-2 [facility] Comment on above: Performed By: #### B MP, LIPA, YVETTE, LIVER #### [facility] [address] [place] [address] Dr. Idania Roldan WBC 2-5 Abnormal NONE SEEN [facility] Comment on above: Performed By: #### B MP, LIPA, YVETTE, LIVER #### [facility] [address] [place] [address] Dr. Idania Roldan CBC AUTO DIFFon 08-19-2022 BASO # 0.0 103/ul Normal 0.0-0.1 [facility] Comment on above: Performed By: #### P T, PTT #### [facility] [address] [place] [address] Dr. Idania Roldan Basophils/100 WBC (Bld) 0.4 % Normal 0.2-2.0 [facility] Comment on above: Performed By: #### P T, PTT #### [facility] [address] [place] [address] Dr. Idania Roldan EO # 0.1 103/ul Normal 0.0-0.7 [facility] Comment on above: Performed By: #### P T, PTT #### [facility] [address] [place] [address] Dr. Idania Roldan Eosinophils/100 WBC (Bld) 2.0 % Normal 0.9-7.0 [facility] Comment on above: Performed By: #### P T, PTT #### [facility] [address] [place] [address] Dr. Idania Roldan Erythrocyte distribution width (RBC) [Ratio] 14.8 % Normal 11.0-15.0 [facility] Comment on above: Performed By: #### P T, PTT #### [facility] [address] [place] [address] Dr. Idania Roldan Hematocrit (Bld) [Volume fraction] 31.5 % Critically low 36.0-48.0 [facility] Comment on above: Performed By: #### P T, PTT #### [facility] [address] [place] [address] Dr. Idania Roldan Hemoglobin (Bld) [Mass/Vol] 9.5 g/dL Critically low 12.0-16.0 [facility] Comment on above: Performed By: #### P T, PTT #### [facility] [address] [place] [address] Dr. Idania Roldan IG # 0.01 10e3/ul Normal 0.00-0.03 [facility] Comment on above: Performed By: #### P T, PTT #### [facility] [address] [address] [address] Idania Roldan IG % 0.2 % Normal 0.0-0.5 [facility] Comment on above: Performed By: #### P T, PTT #### [facility] [address] [place] [address] Dr. Idania Roldan LYMPH # 1.4 103/ul Normal 1.2-3.8 [facility] Comment on above: Performed By: #### P T, PTT #### [facility] [address] [address] [address] Idania Roldan Lymphocytes/100 WBC (Bld) 29.9 % Normal 20.5-60.0 [facility] Comment on above: Performed By: #### P T, PTT #### [facility] [address] [place] [address] Dr. Idania Roldan MANUAL DIFF REQ NO Normal [facility] Comment on above: Performed By: #### P T, PTT #### [facility] [address] [place] [address] Dr. Idania Roldan MCH (RBC) [Entitic mass] 24.4 pg Critically low 26.7-34.0 [facility] Comment on above: Performed By: #### P T, PTT #### [facility] [address] [place] [address] Dr. Idania Roldan MCHC (RBC) [Mass/Vol] 30.2 g/dL Normal 29.9-35.2 [facility] Comment on above: Performed By: #### P T, PTT #### [facility] [address] [place] [address] Dr. Idania Roldan MCV (RBC) [Entitic vol] 80.8 fL Critically low 81.0-99.0 [facility] Comment on above: Performed By: #### P T, PTT #### [facility] [address] [place] [address] Dr. Idania Roldan MONO # 0.2 103/ul Critically low 0.3-0.8 [facility] Comment on above: Performed By: #### P T, PTT #### [facility] [address] [place] [address] Dr. Idania Roldan Monocytes/100 WBC (Bld) 5.2 % Normal 1.7-12.0 [facility] Comment on above: Performed By: #### P T, PTT #### [facility] [address] [place] [address] Dr. Idania Roldan NEUT # 2.9 103/ul Normal 1.4-6.5 [facility] Comment on above: Performed By: #### P T, PTT #### [facility] [address] [place] [address] Dr. Idania Roldan Neutrophils/100 WBC (Bld) 62.3 % Normal 43.0-75.0 [facility] Comment on above: Performed By: #### P T, PTT #### [facility] [address] [place] [address] Dr. Idania oRldan Platelet mean volume (Bld) [Entitic vol] 8.6 fL Critically low 9.5-13.5 [facility] Comment on above: Performed By: #### P T, PTT #### [facility] [address] [place] [address] Dr. Idania Roldan PLT 269 103/ul Normal 150-450 [facility] Comment on above: Performed By: #### P T, PTT #### [facility] [address] [place] [address] Dr. Idania Roldan RBC 3.90 106/ul Critically low 4.20-5.40 The [facility] Comment on above: Performed By: #### P T, PTT #### [facility] [address] [place] [address] Dr. Idania Roldan WBC 4.6 103/ul Normal 4.0-11.0 [facility] Comment on above: Performed By: #### P T, PTT #### [facility] [address] [place] [address] Dr. Idania Roldan PROF CHEM 8 (BAS METB)on Anion gap [Moles/Vol] 9.0 mmol/L Normal [facility] Comment on above: Performed By: #### B MP, LIPA, YVETTE, LIVER #### [facility] [address] [place] [address] Dr. Idania Roldan Calcium [Mass/Vol] 9.1 mg/dL Normal 8.5-10.1 [facility] [place] Comment on above: Performed By: #### B MP, LIPA, YVETTE, LIVER #### [facility] [address] [place] [address] Dr. Idania Roldan Chloride [Moles/Vol] 104 mmol/L Normal 98-107 [facility] Comment on above: Performed By: #### B MP, LIPA, YVETTE, LIVER #### [facility] [address] [place] [address] Dr. Idania Roldan CO2 [Moles/Vol] 31.5 mmol/L Normal 21.0-32.0 [facility] Comment on above: Performed By: #### B MP, LIPA, YVETTE, LIVER #### [facility] [address] [place] [address] Dr. Idania Roldan Creatinine [Mass/Vol] 0.59 mg/dL Normal 0.55-1.02 [facility] Comment on above: Performed By: #### B MP, LIPA, YVETTE, LIVER #### [facility] [address] [place] [address] Dr. Idania Roldan EGFR-AF SENEGALESE >60 Normal >=60 [facility] Comment on above: Performed By: #### B MP, LIPA, YVETTE, LIVER #### [facility] [address] [place] [address] Dr. Idania Roldan EGFR-NON AF SENEGALESE >60 Normal >=60 [facility] Comment on above: Performed By: #### B MP, LIPA, YVETTE, LIVER #### [facility] [address] [place] [address] Dr. Idania Roldan Glucose [Mass/Vol] 90 mg/dL Normal 74-106 [facility] Comment on above: Performed By: #### B MP, LIPA, YVETTE, LIVER #### [facility] [address] [place] [address] Dr. Idania Roldan Potassium [Moles/Vol] 4.5 mmol/L Normal 3.5-5.1 [facility] Comment on above: Performed By: #### B MP, LIPA, YVETTE, LIVER #### [facility] [address] [place] [address] Dr. Idania Roldan Sodium [Moles/Vol] 140 mmol/L Normal 136-145 [facility] Comment on above: Performed By: #### B MP, LIPA, VYETTE, LIVER #### [facility] [address] [place] [address] Dr. Idania Roldan Urea nitrogen [Mass/Vol] 8.0 mg/dL Normal 7.0-18.0 [facility] Comment on above: Performed By: #### B MP, LIPA, YVETTE, LIVER #### [facility] [address] [place] [address] Dr. Idania Roldan Urea nitrogen/Creatinine [Mass ratio] 13.6 mg/mg Normal [facility] Comment on above: Performed By: #### B MP, LIPA, YVETTE, LIVER #### [facility] [address] [place] [address] Dr. Idania Roldan PROTIMEon 08-19-2022 INR Coag (PPP) [Relative time] 0.93 {INR} Normal [facility] Comment on above: Performed By: #### B MP, LIPA, YVETTE, LIVER #### [facility] [address] [place] [address] Dr. Idania Roldan INR GUIDELINES SEE BELOW Normal [facility] Comment on above: Result Comment: TARUN RED INR: 2.0 - 3.0 CONDITIONS NOT LISTED BELOW 2.5 - 3.5 FOR PROSTHETIC HEART VALVE REPLACEMENT 2.5 - 3.5 RECURRENT THROMBOSIS Performed By: #### B MP, LIPA, YVETTE, LIVER #### [facility] [address] [place] [address] Dr. Idania Roldan PT Coag (PPP) [Time] 10.1 s Normal 9.0-11.6 [facility] Comment on above: Performed By: #### B MP, LIPA, YVETTE, LIVER #### [facility] [address] [place] [address] Dr. Idania Rodlan PTTon 08-19-2022 aPTT Coag (Bld) [Time] 28.1 s Normal 22.3-36.2 [facility] Comment on above: Performed By: #### B MP, LIPA, YVETTE, LIVER #### [facility] [address] [place] [address] Dr. Idania Roldan Covid-19 PCR ([facility])on 07-11 SARS-CoV-2 (COVID-19) RNA MAMIE+probe Ql (Unsp spec) Not detected Normal NOT DETECTED [facility] Comment on above: Result Comment: This test is not yet approved or cleared by the [place] FDA. When there are no FDA-approved or cleared tests available, and other criteria are met, FDA can make tests available under an emergency access mechanism called an Emergency Use Authorization (EUA). The EUA for this test is supported by the [place] of Health and Human Service's (HHS's) declaration [...] Performed By: #### P T, PTT #### [facility] [address] [place] [address] Dr. Idania Roldan CBC AUTO DIFFon 07-10-2022 BASO # 0.0 103/ul Normal 0.0-0.1 [facility] Comment on above: Performed By: #### P T, PTT #### [facility] [address] [place] [address] Dr. Idania Roldan Basophils/100 WBC (Bld) 0.2 % Normal 0.2-2.0 [facility] Comment on above: Performed By: #### P T, PTT #### [facility] [address] [place] [address] Dr. Idania Roldan EO # 0.1 103/ul Normal 0.0-0.7 [facility] Comment on above: Performed By: #### P T, PTT #### [facility] [address] [place] [address] Dr. Idania Roldan Eosinophils/100 WBC (Bld) 1.3 % Normal 0.9-7.0 [facility] Comment on above: Performed By: #### P T, PTT #### [facility] [address] [place] [address] Dr. Idania Roldan Erythrocyte distribution width (RBC) [Ratio] 16.4 % Critically high 11.0-15.0 [facility] Comment on above: Performed By: #### P T, PTT #### [facility] [address] [place] [address] Dr. Idania Roldan Hematocrit (Bld) [Volume fraction] 33.2 % Critically low 36.0-48.0 [facility] Comment on above: Performed By: #### P T, PTT #### [facility] [address] [place] [address] Dr. Idania Roldan Hemoglobin (Bld) [Mass/Vol] 10.3 g/dL Critically low 12.0-16.0 [facility] Comment on above: Performed By: #### P T, PTT #### [facility] [address] [place] [address] Dr. Idania Roldan IG # 0.01 10e3/ul Normal 0.00-0.03 [facility] Comment on above: Performed By: #### P T, PTT #### [facility] [address] [place] [address] Dr. Idania Roldan IG % 0.2 % Normal 0.0-0.5 [facility] Comment on above: Performed By: #### P T, PTT #### [facility] [address] [place] [address] Dr. Idania Roldan LYMPH # 1.8 103/ul Normal 1.2-3.8 [facility] Comment on above: Performed By: #### P T, PTT #### [facility] [address] [address] [address] Idania Rodlan Lymphocytes/100 WBC (Bld) 38.8 % Normal 20.5-60.0 [facility] Comment on above: Performed By: #### P T, PTT #### [facility] [address] [place] [address] Dr. Idania Roldan MANUAL DIFF REQ NO Normal [facility] Comment on above: Performed By: #### P T, PTT #### [facility] [address] [place] [address] Dr. Idania Roldan MCH (RBC) [Entitic mass] 25.9 pg Critically low 26.7-34.0 [facility] Comment on above: Performed By: #### P T, PTT #### [facility] [address] [place] [address] Dr. Idania Roldan MCHC (RBC) [Mass/Vol] 31.0 g/dL Normal 29.9-35.2 [facility] Comment on above: Performed By: #### P T, PTT #### [facility] [address] [place] [address] Dr. Idania Roldan MCV (RBC) [Entitic vol] 83.4 fL Normal 81.0-99.0 [facility] Comment on above: Performed By: #### P T, PTT #### [facility] [address] [place] [address] Dr. Idania Roldan MONO # 0.3 103/ul Normal 0.3-0.8 [facility] Comment on above: Performed By: #### P T, PTT #### [facility] [address] [place] [address] Dr. Idania Roldan Monocytes/100 WBC (Bld) 6.1 % Normal 1.7-12.0 [facility] Comment on above: Performed By: #### P T, PTT #### [facility] [address] [place] [address] Dr. Idania Roldan NEUT # 2.5 103/ul Normal 1.4-6.5 [facility] Comment on above: Performed By: #### P T, PTT #### [facility] [address] [address] [address] Idania Roldan Neutrophils/100 WBC (Bld) 53.4 % Normal 43.0-75.0 [facility] Comment on above: Performed By: #### P T, PTT #### [facility] [address] [address] [address] Idania Roldan Platelet mean volume (Bld) [Entitic vol] 10.1 fL Normal 9.5-13.5 [facility] Comment on above: Performed By: #### P T, PTT #### [facility] [address] [place] [address] Dr. Idania Roldan PLT 239 103/ul Normal 150-450 [facility] Comment on above: Performed By: #### P T, PTT #### [facility] [address] [place] [address] Dr. Idania Roldan RBC 3.98 106/ul Critically low 4.20-5.40 [facility] Comment on above: Performed By: #### P T, PTT #### [facility] [address] [place] [address] Dr. Idania Roldan WBC 4.6 103/ul Normal 4.0-11.0 [facility] Comment on above: Performed By: #### P T, PTT #### [facility] [address] [place] [address] Dr. Idania Roldan PROF CHEM 8 (BAS METB)on Anion gap [Moles/Vol] 8.4 mmol/L Normal [facility] Comment on above: Performed By: #### B MP #### [facility] [address] [place] [address] Dr. Idania Roldan Calcium [Mass/Vol] 9.3 mg/dL Normal 8.5-10.1 [facility] Comment on above: Performed By: #### B MP #### [facility] [address] [place] [address] Dr. Idania Roldan Chloride [Moles/Vol] 103 mmol/L Normal 98-107 [facility] Comment on above: Performed By: #### B MP #### [facility] [address] [address] [address] Idania Roldan CO2 [Moles/Vol] 32.9 mmol/L Critically high 21.0-32.0 [facility] Comment on above: Performed By: #### B MP #### [facility] [address] [address] [address] Idania Roldan Creatinine [Mass/Vol] 0.70 mg/dL Normal 0.55-1.02 [facility] Comment on above: Performed By: #### B MP #### [facility] [address] [place] [address] Dr. Idania Roldan EGFR-AF SENEGALESE >60 Normal >=60 [facility] Comment on above: Performed By: #### B MP #### [facility] [address] [place] [address] Dr. Idania Roldan EGFR-NON AF SENEGALESE >60 Normal >=60 [facility] Comment on above: Performed By: #### B MP #### [facility] [address] [address] [address] Idania Roldan Glucose [Mass/Vol] 73 mg/dL Critically low 74-106 [facility] Comment on above: Performed By: #### B MP #### [facility] [address] [place] [address] Dr. Idania Roldan Potassium [Moles/Vol] 4.3 mmol/L Normal 3.5-5.1 [facility] Comment on above: Performed By: #### B MP #### [facility] [address] [address] [address] Idania Roldan Sodium [Moles/Vol] 140 mmol/L Normal 136-145 [facility] Comment on above: Performed By: #### B MP #### [facility] [address] [address] [address] Idania Roldan Urea nitrogen [Mass/Vol] 16.0 mg/dL Normal 7.0-18.0 [facility] Comment on above: Performed By: #### B MP #### [facility] [address] [place] [address] Dr. Idania Roldan Urea nitrogen/Creatinine [Mass ratio] 22.9 mg/mg Normal [facility] Comment on above: Performed By: #### B MP #### [facility] [address] [place] [address] Dr. Idania Roldan PROTIMEon 07-10-2022 INR Coag (PPP) [Relative time] 1.00 {INR} Normal [facility] Comment on above: Performed By: #### P T, PTT #### [facility] [address] [place] [address] Dr. Idania Roldan INR GUIDELINES SEE BELOW Normal [facility] Comment on above: Result Comment: TARUN RED INR: 2.0 - 3.0 CONDITIONS NOT LISTED BELOW 2.5 - 3.5 FOR PROSTHETIC HEART VALVE REPLACEMENT 2.5 - 3.5 RECURRENT THROMBOSIS Performed By: #### P T, PTT #### [facility] [address] [place] [address] Dr. Idania Roldan PT Coag (PPP) [Time] 10.8 s Normal 9.0-11.6 [facility] Comment on above: Performed By: #### P T, PTT #### [facility] [address] [place] [address] Dr. Idania Roldan PTTon 07-10-2022 aPTT Coag (Bld) [Time] 29.3 s Normal 22.3-36.2 [facility] Comment on above: Performed By: #### P T, PTT #### [facility] [address] [place] [address] Dr. Idania Roldan Operative Reporton 2 Operative Report MR#: [id number] I [facility] Pt. Name: Elvi Moore Room #: [id number] Discharge 06/01/2022 Date: Birthdate: 1980 OPERATIVE REPORT DATE OF SURGERY: 06/01/2022 SURGEON: Kevin Lane M.D. CONVEYOR MAN: Duy Cavazos ANESTHESIA: General anesthesia. ESTIMATED BLOOD [...] arthrotomy was closed with soft #2 interrupted giehqr-ra-pkrjm suture. The remainder of the incision closed in layered fashion. Sterile dressing applied. At the conclusion of the case, all sponge and needle counts correct. I was present for the critical portions of this case. Electronically Signed by: Kevin Lane M.D. 06/09/2022 07:[address] M.D. Date Dict: 06/03/2022/07:15 Christine/Kevin Lane M.D. Date Trans: 06/03/2022 08:09 Christine/taylor DN_[id number] cc: Arleth Acharya M.D. [address] [facility] [address] Normal [facility] *ANAEROBIC CULTUREon 022 *ANAEROBIC CULTURE Clinical Report: (D) Specimen/Source: FLUID/INTRAOP SPEC Collected: 06/01/2022 14:08 Status: Final Last Updated: 06/06/2022 06:35 (1) 1. LEFT KNEE JOINT FLUID CULT RES (Final) No Anaerobes Isolated 5 Days Normal [facility] Comment on above: Order Comment: 1. LE FT KNEE JOINT FLUID Performed By: #### 3 0312 ####[facility] *ANAEROBIC CULTURE Clinical Report: (D) Specimen/Source: TISSUE/INTRAOP SPEC Collected: 06/01/2022 14:08 Status: Final Last Updated: 06/06/2022 06:35 (1) 2. LEFT KNEE MEDIAL SYNOVIUM CULT RES (Final) No Anaerobes Isolated 5 Days Normal [facility] Comment on above: Order Comment: 2. LE FT KNEE MEDIAL SYNOVIUM Performed By: #### 6 1405 #### [facility] [address] *ANAEROBIC CULTURE Clinical Report: (D) Specimen/Source: TISSUE/INTRAOP SPEC Collected: 06/01/2022 14:08 Status: Final Last Updated: 06/06/2022 06:35 (1) 3. LEFT KNEE LATERAL SYNOVIUM CULT RES (Final) No Anaerobes Isolated 5 Days Normal [facility] Comment on above: Order Comment: 3. LE FT KNEE LATERAL SYNOVIUM Performed By: #### 6 1405 #### [facility] [address] *BODY FLUID CULTUREon 2021 *BODY FLUID CULTURE Clinical Report: (D) Specimen/Source: FLUID/INTRAOP SPEC Collected: 06/01/2022 14:08 Status: Final Last Updated: 06/06/2022 06:39 (1) 1. LEFT KNEE JOINT FLUID GRAM (Final) Quantity Not Sufficient CULT RES (Final) No Growth Day 5 Normal [facility] Comment on above: Order Comment: 1. LE FT KNEE JOINT FLUID Performed By: #### 3 0318 ####[facility] [address] *TISSUE CULTUREon 06-01-2022 *TISSUE CULTURE Clinical Report: (D) Specimen/Source: TISSUE/INTRAOP SPEC Collected: 06/01/2022 14:08 Status: Final Last Updated: 06/06/2022 06:40 (1) 2. LEFT KNEE MEDIAL SYNOVIUM GRAM (Final) Many Polys No Bacteria Seen CULT RES (Final) No Growth Day 5 Normal [facility] Comment on above: Order Comment: 2. LE FT KNEE MEDIAL SYNOVIUM Performed By: #### 3 0338 ####[facility] [address] *TISSUE CULTURE Clinical Report: (D) Specimen/Source: TISSUE/INTRAOP SPEC Collected: 06/01/2022 14:08 Status: Final Last Updated: 06/06/2022 06:39 (1) 3. LEFT KNEE LATERAL SYNOVIUM GRAM (Final) Many Polys No Bacteria Seen CULT RES (Final) No Growth Day 5 Normal [facility] Comment on above: Order Comment: 3. LE FT KNEE LATERAL SYNOVIUM Performed By: #### 3 0338 ####[facility] [address] POC GLUCOSE LABon 06-01-2022 Glucose [Mass/Vol] 86 mg/dL Normal 70-100 [facility] Comment on above: Performed By: #### 8 [id number] #### [facility] [address] PORTABLE KNEE LEFT 2 VWSon 0 06-01-2022 PORTABLE KNEE LEFT 2 S [facility] Department of Radiology [address] [place] [address] Patient Name: ELVI MOORE : [...] planned Electronically signed: Yvette Andrade. Transcribed by: [email or web address], User Resident: Electronically Signed by: YVETTE ANDRADE @ 06/02/2022 08:53 AM Normal [facility] Comment on above: Order Comment: Hardw are Evaluation, in PACU *MRSA/MSSA DNA NASALon 05-26 *MRSA/MSSA DNA NASAL Clinical Report: (D) Specimen: NASAL SWAB Collected: 05/26/2022 15:23 Status: Final Last Updated: 05/27/2022 13:43 MSSA DNA (Final) Negative MRSA DNA (Final) Negative Normal [facility] Comment on above: Performed By: #### 3 1595 #### [facility] [address] [place] [address], [facility] C REACTIVE PROTEINon 022 CRP [Mass/Vol] 1.3 mg/L Normal 0.0-7.0 [facility] Comment on above: Performed By: #### 6 1405 #### [facility] [address] CBC W/DIFFon 05-26-2022 ABS IMM GRANS 0.0 10*3/uL Normal 0.0-0.2 [facility] Comment on above: Performed By: #### 6 1405 #### [facility] [address] [place] [address], [facility] ABS NEUTROPHILS 2.5 10*3/uL Normal 1.6-7.6 [facility] Comment on above: Performed By: #### 6 1405 #### [facility] [address] [place] [address], [facility] Basophils (Bld) [#/Vol] 0.0 10*3/uL Normal 0.0-0.2 [facility] Comment on above: Performed By: #### 6 1405 #### [facility] [address] [place] [address], [facility] Basophils/100 WBC (Bld) 0.3 % Normal 0.0-1.0 [facility] Comment on above: Performed By: #### 6 1405 #### [facility] [address] [place] [address], [facility] Eosinophils (Bld) [#/Vol] 0.1 10*3/uL Normal 0.0-0.5 [facility] Comment on above: Performed By: #### 6 1405 #### [facility] [address] [facility] [place] [address], [facility] Eosinophils/100 WBC (Bld) 1.5 % Normal 0.0-6.0 [facility] Comment on above: Performed By: #### 6 1405 #### [facility] [address] [place] [address], [facility] Erythrocyte distribution width (RBC) [Ratio] 15.9 % High 11.5-15.0 [facility] Comment on above: Performed By: #### 6 1405 #### [facility] [address] Hematocrit (Bld) [Volume fraction] 35.0 % Low 36.0-45.0 [facility] Comment on above: Performed By: #### 6 1405 #### [facility] [address] Hemoglobin (Bld) [Mass/Vol] 10.6 g/dL Low 12.0-15.0 [facility] Comment on above: Performed By: #### 6 1405 #### [facility] [address] IMMATURE GRANS 0.2 % Normal 0.0-1.0 [facility] Comment on above: Performed By: #### 6 1405 #### [facility] [address] Lymphocytes (Bld) [#/Vol] 2.8 10*3/uL Normal 1.2-4.0 [facility] Comment on above: Performed By: #### 6 1405 #### [facility] [address] Lymphocytes/100 WBC (Bld) 48.0 % High 20.0-45.0 [facility] Comment on above: Performed By: #### 6 1405 #### [facility] [address] [facility]. [address] MCH (RBC) [Entitic mass] 24.5 pg Low 27.0-33.0 [facility] Comment on above: Performed By: #### 6 1405 #### [facility] [address] MCHC (RBC) [Mass/Vol] 30.3 g/dL Low 32.0-35.0 [facility] Comment on above: Performed By: #### 6 1405 #### [facility] [address] [place] [address], [facility] MCV (RBC) [Entitic vol] 81.0 fL Low 82.0-98.0 [facility] Comment on above: Performed By: #### 6 1405 #### [facility] [address] [place] [id number], [facility] Monocytes (Bld) [#/Vol] 0.4 10*3/uL Normal 0.1-1.0 [facility] Comment on above: Performed By: #### 6 1405 #### [facility] [address] [place] [address], [facility] MONOS 6.8 % Normal 5.0-12.0 [facility] Comment on above: Performed By: #### 6 1405 #### [facility] [address] [place] [address], [facility] Neutrophils/100 WBC (Bld) 43.2 % Normal 40.0-72.0 [facility] Comment on above: Performed By: #### 6 1405 #### [facility] [address] [facility] [place] [address], [facility] Nucleated RBC/100 WBC (Bld) [Ratio] 0 % Normal 0-0 [facility] Comment on above: Performed By: #### 6 1405 #### [facility] [address] [place] [address], [facility] PLAT CNT 246 10*3/uL Normal 150-400 [facility] Comment on above: Performed By: #### 6 1405 #### [facility] [address] [place] [id number], [facility] RBC (Bld) [#/Vol] 4.32 10*6/uL Normal 3.80-5.00 [facility] Comment on above: Performed By: #### 6 1405 #### [facility] [address] [place] [address], [facility] WBC (Bld) [#/Vol] 5.87 10*3/uL Normal 4.00-10.60 [facility] Comment on above: Performed By: #### 6 1405 #### [facility] [address] HEMOGLOBIN A1Con 05-26-2022 Glucose [Moles/Vol] 100 mmol/L Normal [facility] Comment on above: Performed By: #### 3 1791 #### [facility] [address] HbA1c (Bld) [Mass fraction] 5.1 % Normal 4.0-6.0 [facility] Comment on above: Performed By: #### 3 1791 #### [facility] [address] SEDIMENTATION RATEon 022 SED RATE 17 mm/hr Normal 0-20 [facility] Comment on above: Performed By: #### 6 1405 #### [facility] [address] US KIDNEYS BLADDERon 022 US KIDNEYS [...] RUSSELL DUFF Date: 2022-05-02 16:18 Normal [facility] [place] [facility] CBC AUTO DIFFon 04-29-2022 BASO # 0.0 103/ul Normal 0.0-0.1 [facility] [place] [facility] Comment on above: Performed By: #### B MP, LIPA, YVETTE, LIVER #### [facility] [place] [facility] [address] [place] [address] Dr. Idania Roldan Basophils/100 WBC (Bld) 0.3 % Normal 0.2-2.0 [facility] [place] [facility] Comment on above: Performed By: #### B MP, LIPA, YVETTE, LIVER #### [facility] [place] [facility] [address] [place] [address] Dr. Idania Roldan EO # 0.1 103/ul Normal 0.0-0.7 [facility] [place] [facility] Comment on above: Performed By: #### B MP, LIPA, YVETTE, LIVER #### [facility] [place] [facility] [address] [place] [address] Dr. Idania Roldan Eosinophils/100 WBC (Bld) 0.9 % Normal 0.9-7.0 [facility] Comment on above: Performed By: #### B MP, LIPA, YVETTE, LIVER #### [facility] [place] [facility] [address] [place] [address] Dr. Idania Roldan Erythrocyte distribution width (RBC) [Ratio] 15.4 % Critically high 11.0-15.0 [facility] [place] [facility] Comment on above: Performed By: #### B MP, LIPA, YVETTE, LIVER #### [facility] [place] [facility] [address] [place] [address] Dr. Idania Roldan Hematocrit (Bld) [Volume fraction] 36.0 % Normal 36.0-48.0 [facility] [place] [facility] Comment on above: Performed By: #### B MP, LIPA, YVETTE, LIVER #### [facility] [place] [facility] [address] [place] [address] Dr. Idania Roldan Hemoglobin (Bld) [Mass/Vol] 11.2 g/dL Critically low 12.0-16.0 [facility] Comment on above: Performed By: #### B MP, LIPA, YVETTE, LIVER #### [facility] [place] [facility] [address] [place] [address] Dr. Idania Roldan IG # 0.02 10e3/ul Normal 0.00-0.03 [facility] Comment on above: Performed By: #### B MP, LIPA, YVETTE, LIVER #### [facility] [place] [facility] [address] [place] [address] Dr. Idania Roldan IG % 0.3 % Normal 0.0-0.5 [facility] Comment on above: Performed By: #### B MP, LIPA, YVETTE, LIVER #### [facility] [place] [facility] [address] [place] [address] Dr. Idania Roldan LYMPH # 2.5 103/ul Normal 1.2-3.8 [facility] Comment on above: Performed By: #### B MP, LIPA, YVETTE, LIVER #### [facility] [place] [facility] [address] [place] [address] Dr. Idania Roldan Lymphocytes/100 WBC (Bld) 36.2 % Normal 20.5-60.0 [facility] Comment on above: Performed By: #### B MP, LIPA, YVETTE, LIVER #### [facility] [place] [facility] [address] [place] [address] Dr. Idania Roldan MANUAL DIFF REQ NO Normal [facility] Comment on above: Performed By: #### B MP, LIPA, YVETTE, LIVER #### [facility] [place] [facility] [address] [place] [address] Dr. Idania Roldan MCH (RBC) [Entitic mass] 24.9 pg Critically low 26.7-34.0 [facility] Comment on above: Performed By: #### B MP, LIPA, YVETTE, LIVER #### [facility] [place] [facility] [address] [place] [address] Dr. Idania Roldan MCHC (RBC) [Mass/Vol] 31.1 g/dL Normal 29.9-35.2 [facility] Comment on above: Performed By: #### B MP, LIPA, YVETTE, LIVER #### [facility] [place] [facility] [address] [place] [address] Dr. Idania Roldan MCV (RBC) [Entitic vol] 80.2 fL Critically low 81.0-99.0 [facility] Comment on above: Performed By: #### B MP, LIPA, YVETTE, LIVER #### [facility] [place] [facility] [address] [place] [address] Dr. Idania Roldan MONO # 0.5 103/ul Normal 0.3-0.8 [facility] [place] [facility] Comment on above: Performed By: #### B MP, LIPA, YVETET, LIVER #### [facility] [place] [facility] [address] [place] [address] Dr. Idania Roldan Monocytes/100 WBC (Bld) 6.7 % Normal 1.7-12.0 [facility] [place] [facility] Comment on above: Performed By: #### B MP, LIPA, YVETTE, LIVER #### [facility] [place] [facility] [address] [place] [address] Dr. Idania Roldan NEUT # 3.8 103/ul Normal 1.4-6.5 [facility] [place] [facility] Comment on above: Performed By: #### B MP, LIPA, YVETTE, LIVER #### [facility] [place] [facility] [address] [place] [address] Dr. Idania Roldan Neutrophils/100 WBC (Bld) 55.6 % Normal 43.0-75.0 [facility] [place] [facility] Comment on above: Performed By: #### B MP, LIPA, YVETTE, LIVER #### [facility] [place] [facility] [address] [place] [address] Dr. Idania Roldan Platelet mean volume (Bld) [Entitic vol] 9.9 fL Normal 9.5-13.5 [facility] [place] [facility] Comment on above: Performed By: #### B MP, LIPA, YVETTE, LIVER #### [facility] [place] [facility] [address] [place] [address] Dr. Idania Roldan PLT 265 103/ul Normal 150-450 [facility] [place] [facility] Comment on above: Performed By: #### B MP, LIPA, YVETTE, LIVER #### [facility] [place] [facility] [address] [place] [address] Dr. Idania Roldan RBC 4.49 106/ul Normal 4.20-5.40 [facility] [place] [facility] Comment on above: Performed By: #### B MP, LIPA, YVETTE, LIVER #### [facility] [place] [facility] [address] [place] [address] Dr. Idania Roldan WBC 6.8 103/ul Normal 4.0-11.0 [facility] Comment on above: Performed By: #### B MP, LIPA, YVETTE, LIVER #### [facility] [place] [facility] [address] [place] [address] Dr. Idania Roldan ER URINE PROFILEon 2 Bilirubin Ql (U) Negative Normal NEGATIVE [facility] Comment on above: Performed By: #### P T, PTT #### [facility] [place] [facility] [address] [place] [address] Dr. Idania Roldan Clarity (U) CLEAR Normal CLEAR [facility] [place] [facility] Comment on above: Performed By: #### P T, PTT #### [facility] [place] [facility] [address] [place] [address] Dr. Idania Roldan Color (U) LT. YELLOW Normal YELLOW [facility] [place] [facility] Comment on above: Performed By: #### P T, PTT #### [facility] [place] [facility] [address] [place] [address] Dr. Idania MENDOSA A micrscopic examina tion will be performed if indicated. Normal [facility] [place] [facility] Comment on above: Performed By: #### P T, PTT #### [facility] [place] [facility] [address] [place] [address] Dr. Idania Roldan Glucose Ql (U) Negative Normal NEGATIVE [facility] Comment on above: Performed By: #### P T, PTT #### [facility] [place] [facility] [address] [place] [address] Dr. Idania Roldan Hemoglobin Ql (U) LARGE Abnormal NEGATIVE [facility] Comment on above: Performed By: #### P T, PTT #### [facility] [place] [facility] [address] [place] [address] Dr. Idania Roldan Ketones Ql (U) Negative Normal NEGATIVE [facility] Comment on above: Performed By: #### P T, PTT #### [facility] [place] [facility] [address] [place] [address] Dr. Idania Roldan LEUKOCYTES TRACE Abnormal NEGATIVE [facility] Comment on above: Performed By: #### P T, PTT #### [facility] [place] [facility] [address] [place] [address] Dr. Idania Roldan Nitrite Ql (U) Negative Normal NEGATIVE [facility] Comment on above: Performed By: #### P T, PTT #### [facility] [place] [facility] [address] [place] [address] Dr. Idania Roldan pH (U) 6.0 [pH] Normal 5-9 [facility] Comment on above: Performed By: #### P T, PTT #### [facility] [place] [facility] [address] [place] [address] Dr. Idania Roldan SPEC GRAVITY 1.010 Normal 1.005-<=1.02 5 [facility] Comment on above: Performed By: #### P T, PTT #### [facility] [place] [facility] [address] [place] [address] Dr. Idania Roldan UA PROTEIN Negative Normal NEGATIVE/ TRACE [facility] Comment on above: Performed By: #### P T, PTT #### [facility] [place] [facility] [address] [place] [address] Dr. Idania Roldan UR MICRO IND INDICATED Normal [facility] Comment on above: Performed By: #### P T, PTT #### [facility] [place] [facility] [address] [place] [address] Dr. Idania Roldan Urobilinogen Qn (U) 0.2 {Bryan'U}/dL Normal 0.2 - 1. 0 [facility] Comment on above: Performed By: #### P T, PTT #### [facility] [place] [facility] [address] [place] [address] Dr. Idania Roldan PROF CHEM 8 (BAS METB)on Anion gap [Moles/Vol] 10.9 mmol/L Normal [facility] Comment on above: Performed By: #### P T, PTT #### [facility] [place] [facility] [address] [place] [address] Dr. Idania Roldan Calcium [Mass/Vol] 8.9 mg/dL Normal 8.5-10.1 [facility] Comment on above: Performed By: #### P T, PTT #### [facility] [place] [facility] [address] [address] [address] Idania Roldan Chloride [Moles/Vol] 104 mmol/L Normal 98-107 [facility] [place] [facility] Comment on above: Performed By: #### P T, PTT #### [facility] [place] [facility] [address] [address] [address] Idania Roldan CO2 [Moles/Vol] 28.9 mmol/L Normal 21.0-32.0 [facility] Comment on above: Performed By: #### P T, PTT #### [facility] [place] [facility] [address] [address] [address] Idania Roldan Creatinine [Mass/Vol] 0.71 mg/dL Normal 0.55-1.02 [facility] Comment on above: Performed By: #### P T, PTT #### [facility] [place] [facility] [address] [place] [address] Dr. Idania Roldan EGFR-AF SENEGALESE >60 Normal >=60 [facility] Comment on above: Performed By: #### P T, PTT #### [facility] [place] [facility] [address] [address] [address] Idania Roldan EGFR-NON AF SENEGALESE >60 Normal >=60 [facility] Comment on above: Performed By: #### P T, PTT #### [facility] [place] [facility] [address] [address] [address] Idania Roldan Glucose [Mass/Vol] 88 mg/dL Normal 74-106 [facility] Comment on above: Performed By: #### P T, PTT #### [facility] [place] [facility] [address] [address] [address] Idania Roldan Potassium [Moles/Vol] 3.8 mmol/L Normal 3.5-5.1 [facility] [place] [facility] Comment on above: Performed By: #### P T, PTT #### [facility] [place] [facility] [address] [place] [address] Dr. Idania Roldan Sodium [Moles/Vol] 140 mmol/L Normal 136-145 [facility] Comment on above: Performed By: #### P T, PTT #### [facility] [place] [facility] [address] [place] [address] Dr. Idania Roldan Urea nitrogen [Mass/Vol] 13.0 mg/dL Normal 7.0-18.0 [facility] [place] [facility] Comment on above: Performed By: #### P T, PTT #### [facility] [place] [facility] [address] [place] [address] Dr. Idania Roldan Urea nitrogen/Creatinine [Mass ratio] 18.3 mg/mg Normal [facility] [place] [facility] Comment on above: Performed By: #### P T, PTT #### [facility] [place] [facility] [address] [place] [address] Dr. Idania Roldan URINE MICROSCOPIC ONLYon BACTERIA NONE SEEN Normal NONE SEEN [facility] [place] [facility] Comment on above: Performed By: #### P T, PTT #### [facility] [place] [facility] [address] [place] [address] Dr. Idania Roldan Bacteria identified Cx Nom (U) NOT INDICATED Normal [facility] [place] [facility] Comment on above: Performed By: #### P T, PTT #### [facility] [place] [facility] [address] [place] [address] Dr. Idania Roldan CAST NONE SEEN Normal NONE SEEN [facility] [place] [facility] Comment on above: Performed By: #### P T, PTT #### [facility] [place] [facility] [address] [place] [address] Dr. Idania Roldan Crystals LM Nom (Urine sed) NONE SEEN Normal NONE SEEN [facility] [place] [facility] Comment on above: Performed By: #### P T, PTT #### [facility] [place] [facility] [address] [place] [address] Dr. Idania Roldan Epithelial cells LM Ql (Urine sed) FEW Abnormal NONE SEEN /RARE [facility] [place] [facility] Comment on above: Performed By: #### P T, PTT #### [facility] [place] [facility] [address] [place] [address] Dr. Idania Roldan MUCOUS NONE SEEN Normal NONE SEEN [facility] [place] [facility] Comment on above: Performed By: #### P T, PTT #### [facility] [place] [facility] [address] [place] [address] Dr. Idania Roldan RBC 50-75 Abnormal 0-2 [facility] [place] [facility] Comment on above: Performed By: #### P T, PTT #### [facility] [place] [facility] [address], [place] [address] Dr. Idania Roldan WBC 0-2 Abnormal NONE SEEN [facility] [place] [facility] Comment on above: Performed By: #### P T, PTT #### [facility] [place] [facility] [address], [place] [address] Dr. Idania Roldan XR ABD FLAT UP_PA [...] RUSSELL DUFF Date: 2022-04-29 13:37 Normal [facility] [place] [facility] US KIDNEYS BLADDERon 022 US KIDNEYS [...] by: RUSSELL DUFF Date: 2022-04-16 18:24 Normal [facility] CT LOWER EXTREMITY WO CONTRA ST LEFTon 04-07-2022 CT LOWER EXTREMITY WO CONTRAST LEFT [facility] Department of Radiology [address] [place] [phone] Patient Name: ELVI MOORE : 1980 Sex: F Age: Race: White Pt. Location: Patient Status: D Ordered Date: 03/24/2022 9:30:00 AM Completed Date: 04/07/2022 05:13 PM Requesting Provider: KEVIN LANE Attending Provider: KEVIN LANE Report Copy To: ARLETH ACHARYA Signs & Symptoms: Z96.659 Presence of unspecified artificial knee joint I10 History: [place]ee Comments: , left knee Exam: CT LOWER [...] arthroplasty. Electronically signed: Elvis Perez. Transcribed by: [email or web address], User Resident: Electronically Signed by: ELVIS PEREZ @ 04/12/2022 09:46 AM Normal [facility] Comment on above: Order Comment: , lef t knee C REACTIVE PROTEINon 022 CRP [Mass/Vol] 2.2 mg/L Normal 0.0-7.0 [facility] Comment on above: Performed By: #### 3 1791 #### [address] SEDIMENTATION RATEon 022 SED RATE 30 mm/hr High 0-20 [facility] Comment on above: Performed By: #### 5 6506 #### [address] KNEE LEFT 1 OR 2 [facility] 02-12 KNEE LEFT 1 OR 2 S [facility] Department of Radiology [address] [place] [phone] Patient Name: ELVI MOORE : 1980 [...] report. Electronically signed: Sathya Christianson. Transcribed by: [email or web address], User Resident: Electronically Signed by: SATHYA CHRISTIANSON @ 02/13/2022 10:48 PM Normal [facility] Comment on above: Order Comment: LT KN EE REANNA Operative Reporton Operative Report MR#: [id number] S [facility] Pt. Name: Elvi Moore Room #: 0C Discharge Date: Birthdate: 1980 OPERATIVE REPORT DATE OF SURGERY: 02/12/2022 SURGEON: Kevin Lane M.D. CONVEYOR MAN: None. PREOPERATIVE DIAGNOSIS: Left total knee arthroplasty [...] Lane M.D. Date Trans: 02/12/2022 09:35 A/taylor [id number] cc: Arleth Acharya M.D. [address] [phone] Normal [facility] POC GLUCOSE LABon 02-12-2022 Glucose [Mass/Vol] 96 mg/dL Normal 70-100 [facility] Comment on above: Performed By: #### 8 5499 ####[facility] [facility] [place] [address], [facility] C REACTIVE PROTEINon 022 CRP [Mass/Vol] 1.7 mg/L Normal 0.0-7.0 [facility] Comment on above: Performed By: #### 6 1405 #### [facility] [address] [place] [address], [facility] SEDIMENTATION RATEon 022 SED RATE 18 mm/hr Normal 0-20 [facility] Comment on above: Performed By: #### 6 1405 #### [facility] [address] [place] [address], [facility] KNEE LEFT 3 VWSon 12-26-2021 KNEE LEFT 3 VWS [facility] Department of Radiology [address] [place] [phone] Patient Name: ELVI MOORE : 1980 Sex: F Age: Race: White Pt. Location: Patient Status: Ordered Date: 12/26/2021 1:45:00 PM Completed Date: 12/26/2021 01:50 PM Requesting Provider: JORDEN BRODY Attending Provider: Report Copy To: Signs & Symptoms: Z47.1 Aftercare following joint replacement surgery I10 History: [place] Comments: , , , Ordering Provider - [...] report. Electronically signed: Yvette Desai. Transcribed by: [email or web address], User Resident: CHRISTELLE ABDI Electronically Signed by: YVETTE DESAI @ 12/26/2021 04:27 PM I personally read this/these film(s) with this resident Normal [facility] Comment on above: Order Comment: , , = ========= , Ordering Provider - JORDEN BRODY AUTOMOTIVE SERVICE WRITER , KNEE LEFT 3 VWSon 12-09-2021 KNEE LEFT 3 S [facility] Department of Radiology [address] [place] [phone] Patient Name: ELVI MOORE : 1980 [...] changes. Electronically signed: Ezio Roberts. Transcribed by: [email or web address], User Resident: Electronically Signed by: EZIO ROBERTS @ 12/10/2021 08:39 AM Normal [facility] Operative Reporton 2 Operative Report MR#: [id number] [facility] Pt. Name: Elvi Moore Room #: 0 Discharge Date: Birthdate: 1980 OPERATIVE REPORT DATE OF SURGERY: 10/30/2021 SURGEON: Kevin Lane M.D. CONVEYOR MAN: 1. MD [place]. 2. LAVON Quinones. ANESTHESIA: [...] arthrotomy was closed itself with #2 interrupted fwzaju-ek-[id number] suture. The remainder of the incision was closed in a layered fashion. Sterile dressing was applied. At the conclusion of the case, all sponge and needle counts were correct. I was present for the critical portions of this case. Electronically Signed by: Kevin Lane M.D. 10/30/2021 07:[address] M.D. Date Dict: 10/30/2021/11:00 A/Kevin Lane M.D. Date Trans: 10/30/2021 12:34 P/taylor [id number] cc: Arleth Acharya M.D. [address] [facility] [place] [id number] Nasir Thacker, DO [address] [facility] [address] [facility] [address] Normal [facility] POC GLUCOSE LABon 10-30-2021 Glucose [Mass/Vol] 88 mg/dL Normal 70-100 [facility] Comment on above: Performed By: #### 8 5499 ####[id number] [place], [place] [address] [place] [address] PORTABLE KNEE LEFT 2 VWSon 0 10-30-2021 PORTABLE KNEE LEFT 2 VWS [facility] Department of Radiology [address] [place] [phone] Patient Name: ELVI MOORE : [...] complication Electronically signed: Yvette Andrade. Transcribed by: [email or web address], User Resident: Electronically Signed by: YVTETE ANDRADE @ 10/30/2021 11:20 AM Normal [facility] Comment on above: Order Comment: Hardw are Evaluation, Postop PACU films for L knee s/p TKA. AP and lateral please *MRSA/MSSA DNA NASALon 10-07 *MRSA/MSSA DNA NASAL Clinical Report: (D) Specimen: NASAL SWAB Collected: 10/07/2021 10:51 Status: Final Last Updated: 10/07/2021 15:44 MSSA DNA (Final) Negative MRSA DNA (Final) Negative Normal [facility] Comment on above: Performed By: #### 3 1595 ####[facility] APTTon 10-07-2021 aPTT Coag (Bld) [Time] 32.2 s Normal 25.0-35.0 [facility] Comment on above: Result Comment: ALL [...] FOR THIS PURPOSE. Performed By: #### 3 4241 #### [facility] [address] BASIC METABOLIC PANELon - Calcium [Mass/Vol] 9.2 mg/dL Normal 8.6-10.3 [facility] Comment on above: Performed By: #### 3 1791 #### [facility] [address] [place] [address], [place] Chloride [Moles/Vol] 106 mmol/L Normal 98-107 [facility] Comment on above: Performed By: #### 3 1791 #### [facility] [address] [place] [address], [place] CO2 [Moles/Vol] 28 mmol/L Normal 21-31 [facility] Comment on above: Performed By: #### 3 1791 #### [facility] [address] [place] [address], [place] Creatinine [Mass/Vol] 0.77 mg/dL Normal 0.60-1.20 [facility] Comment on above: Performed By: #### 3 1791 #### [facility] [address] [place] [address], [place] GFR/1.73 sq M.predicted among blacks MDRD (S/P/Bld) [Vol rate/Area] mL/min/{1.73_m2} Normal >60 [facility] Comment on above: Performed By: #### 3 1791 #### [facility] [address] [place] [address], [place] GFR/1.73 sq M.predicted among non-blacks MDRD (S/P/Bld) [Vol rate/Area] mL/min/{1.73_m2} Normal >60 [facility] Comment on above: Performed By: #### 3 1791 #### [facility] [address] [place] [address], [place] Glucose [Mass/Vol] 84 mg/dL Normal 70-100 [facility] Comment on above: Performed By: #### 3 179 #### [facility] [address] [place] [address], [place] Potassium [Moles/Vol] 4.4 mmol/L Normal 3.5-5.1 [facility] Comment on above: Performed By: #### 3 1791 #### [facility] [address] Sodium [Moles/Vol] 142 mmol/L Normal 136-145 [facility] Comment on above: Performed By: #### 3 1791 #### [facility] [address] Urea nitrogen [Mass/Vol] 12 mg/dL Normal 7-25 [facility] Comment on above: Performed By: #### 3 1791 #### [facility] [address] CBC W/DIFFon 10-07-2021 ABS IMM GRANS 0.0 10*3/uL Normal 0.0-0.2 [facility] Comment on above: Performed By: #### 6 1405 #### [facility] [address] ABS NEUTROPHILS 4.7 10*3/uL Normal 1.6-7.6 [facility] Comment on above: Performed By: #### 6 1405 #### [facility] [address] Basophils (Bld) [#/Vol] 0.0 10*3/uL Normal 0.0-0.2 [facility] Comment on above: Performed By: #### 6 1405 #### [facility] [address] Basophils/100 WBC (Bld) 0.3 % Normal 0.0-1.0 [facility] Comment on above: Performed By: #### 6 1405 #### [facility] [address] Eosinophils (Bld) [#/Vol] 0.2 10*3/uL Normal 0.0-0.5 [facility] Comment on above: Performed By: #### 6 1405 #### [facility] [address] [facility] [place] [address], [facility] Eosinophils/100 WBC (Bld) 1.9 % Normal 0.0-6.0 [facility] Comment on above: Performed By: #### 6 1405 #### [facility] [address] [facility]. [address] Erythrocyte distribution width (RBC) [Ratio] 14.0 % Normal 11.5-15.0 [facility] Comment on above: Performed By: #### 6 1405 #### [facility] [address] [place] [address], [facility] Hematocrit (Bld) [Volume fraction] 37.1 % Normal 36.0-45.0 [facility] Comment on above: Performed By: #### 6 1405 #### [facility] [address] [facility]. [address] Hemoglobin (Bld) [Mass/Vol] 11.3 g/dL Low 12.0-15.0 [facility] Comment on above: Performed By: #### 6 1405 #### [facility] [address] [place] [address], [facility] IMMATURE GRANS 0.1 % Normal 0.0-1.0 [facility] Comment on above: Performed By: #### 6 1405 #### [facility] [address] [facility] [place] [address], [facility] Lymphocytes (Bld) [#/Vol] 2.5 10*3/uL Normal 1.2-4.0 [facility] Comment on above: Performed By: #### 6 1405 #### [facility] [address] [facility] [place] [address], [facility] Lymphocytes/100 WBC (Bld) 31.6 % Normal 20.0-45.0 [facility] Comment on above: Performed By: #### 6 1405 #### [facility] [address] [facility]. [address] MCH (RBC) [Entitic mass] 25.5 pg Low 27.0-33.0 [facility] Comment on above: Performed By: #### 6 1405 #### [facility] [address] [facility] [address] MCHC (RBC) [Mass/Vol] 30.5 g/dL Low 32.0-35.0 [facility] Comment on above: Performed By: #### 6 1405 #### [facility] [address] MCV (RBC) [Entitic vol] 83.7 fL Normal 82.0-98.0 [facility] Comment on above: Performed By: #### 6 1405 #### [facility] [address] [facility]. [address] Monocytes (Bld) [#/Vol] 0.5 10*3/uL Normal 0.1-1.0 [facility] Comment on above: Performed By: #### 6 1405 #### [facility] [address] MONOS 6.0 % Normal 5.0-12.0 [facility] Comment on above: Performed By: #### 6 1405 #### [facility] [address] [facility]. [address] Neutrophils/100 WBC (Bld) 60.1 % Normal 40.0-72.0 [facility] Comment on above: Performed By: #### 6 1405 #### [facility] [address] Nucleated RBC/100 WBC (Bld) [Ratio] 0 % Normal 0-0 [facility] Comment on above: Performed By: #### 6 1405 #### [facility] [address] [place] [address], [facility] PLAT CNT 233 10*3/uL Normal 150-400 [facility] Comment on above: Performed By: #### 6 1405 #### [facility] [address] [place] [address], [facility] RBC (Bld) [#/Vol] 4.43 10*6/uL Normal 3.80-5.00 [facility] Comment on above: Performed By: #### 6 1405 #### [facility] [address] [facility] [place] [address], [facility] WBC (Bld) [#/Vol] 7.85 10*3/uL Normal 4.00-10.60 [facility] Comment on above: Performed By: #### 6 1405 #### [facility] [address] PROTHROMBIN TIMEon 1 INR Coag (PPP) [Relative time] 0.94 {INR} Normal 0.91-1.16 [facility] Comment on above: Result Comment: ACCC P [...] 1995;108:[id number]-246S. Performed By: #### 3 1791 #### [facility] [address] PT Coag (PPP) [Time] 12.6 s Normal 12.3-14.8 [facility] Comment on above: Result Comment: ALL RESULTS MUST BE INTERPRETED WITH RESPECT TO BLOOD DRAWING ARTIFACT OR DILUTION ERROR OF ANTICOAGULANT AT THE TIME OF SAMPLING. Performed By: #### 3 1791 #### [facility] [address] [facility]. [address] TYPE AND SCREENon 10-07-2021 ABO INTERPRETATION O Normal [facility] Comment on above: Performed By: #### 3 1791 #### [facility] [address] [facility]. [address] RH INTERPRETATION Positive Normal [facility] Comment on above: Performed By: #### 3 1791 #### [facility] [address] [facility]. [address] *MRSA/MSSA DNA NASALon 08-12 *MRSA/MSSA DNA NASAL Clinical Report: (D) Specimen: NASAL SWAB Collected: 08/12/2021 10:14 Status: Final Last Updated: 08/12/2021 18:58 MSSA DNA (Final) Negative MRSA DNA (Final) Negative Normal [facility] Comment on above: Performed By: #### 6 1405 #### [facility] [address] [facility]. [address] CBC W/DIFFon 08-12-2021 ABS IMM GRANS 0.0 10*3/uL Normal 0.0-0.2 [facility] Comment on above: Performed By: #### 6 1405 #### [facility] [address] ABS NEUTROPHILS 3.7 10*3/uL Normal 1.6-7.6 [facility] Comment on above: Performed By: #### 6 1405 #### [facility] [address] [facility] [place] [address], [facility] Basophils (Bld) [#/Vol] 0.0 10*3/uL Normal 0.0-0.2 [facility] Comment on above: Performed By: #### 6 1405 #### [facility] [address] [place] [address], [facility] Basophils/100 WBC (Bld) 0.3 % Normal 0.0-1.0 [facility] Comment on above: Performed By: #### 6 1405 #### [facility] [address] [facility] [place] [address], [facility] Eosinophils (Bld) [#/Vol] 0.2 10*3/uL Normal 0.0-0.5 [facility] Comment on above: Performed By: #### 6 1405 #### [facility] [address] [facility] [place] [address], [facility] Eosinophils/100 WBC (Bld) 2.9 % Normal 0.0-6.0 [facility] Comment on above: Performed By: #### 6 1405 #### [facility] [address] [facility]. [address] Erythrocyte distribution width (RBC) [Ratio] 14.0 % Normal 11.5-15.0 [facility] Comment on above: Performed By: #### 6 1405 #### [facility] [address] [facility] [place] [address], [facility] Hematocrit (Bld) [Volume fraction] 37.0 % Normal 36.0-45.0 [facility] Comment on above: Performed By: #### 6 1405 #### [facility] [address] [facility] [place] [address], [facility] Hemoglobin (Bld) [Mass/Vol] 11.6 g/dL Low 12.0-15.0 [facility] Comment on above: Performed By: #### 6 1405 #### [facility] [address] [place] [address], [facility] IMMATURE GRANS 0.3 % Normal 0.0-1.0 [facility] Comment on above: Performed By: #### 6 1405 #### [facility] [address] [place] [address], [facility] Lymphocytes (Bld) [#/Vol] 2.1 10*3/uL Normal 1.2-4.0 [facility] Comment on above: Performed By: #### 6 1405 #### [facility] [address] [place] [address], [facility] Lymphocytes/100 WBC (Bld) 32.5 % Normal 20.0-45.0 [facility] Comment on above: Performed By: #### 6 1405 #### [facility] [address] [place] [address], [facility] MCH (RBC) [Entitic mass] 26.8 pg Low 27.0-33.0 [facility] Comment on above: Performed By: #### 6 1405 #### [facility] [address] [place] [address], [facility] MCHC (RBC) [Mass/Vol] 31.4 g/dL Low 32.0-35.0 [facility] Comment on above: Performed By: #### 6 1405 #### [facility] [address] [place] [address], [facility] MCV (RBC) [Entitic vol] 85.5 fL Normal 82.0-98.0 [facility] Comment on above: Performed By: #### 6 1405 #### [facility] [address] [place] [address], [facility] Monocytes (Bld) [#/Vol] 0.5 10*3/uL Normal 0.1-1.0 [facility] Comment on above: Performed By: #### 6 1405 #### [facility] 3000 [place] [address], [facility] MONOS 6.9 % Normal 5.0-12.0 [facility] Comment on above: Performed By: #### 6 1405 #### [facility] [address] [place] [address], [facility] Neutrophils/100 WBC (Bld) 57.1 % Normal 40.0-72.0 [facility] Comment on above: Performed By: #### 6 1405 #### [facility] [address] [place] [address], [facility] Nucleated RBC/100 WBC (Bld) [Ratio] 0 % Normal 0-0 [facility] Comment on above: Performed By: #### 6 1405 #### [facility] [address] [place] [address], [facility] PLAT CNT 223 10*3/uL Normal 150-400 [facility] Comment on above: Performed By: #### 6 1405 #### [facility] [address] [place] [address], [facility] RBC (Bld) [#/Vol] 4.33 10*6/uL Normal 3.80-5.00 [facility] Comment on above: Performed By: #### 6 1405 #### [facility] [address] [place] [address], [facility] WBC (Bld) [#/Vol] 6.55 10*3/uL Normal 4.00-10.60 [facility] Comment on above: Performed By: #### 6 1405 #### [facility] [address] [facility] [place] [id number], [facility] HEMOGLOBIN A1Con 08-12-2021 Glucose [Moles/Vol] 103 mmol/L Normal [facility] Comment on above: Performed By: #### 3 1791 #### [facility] [address] [place] [address], [facility] HbA1c (Bld) [Mass fraction] 5.2 % Normal 4.0-6.0 [facility] Comment on above: Performed By: #### 3 1791 #### [address] [address], [facility] KNEE LEFT 3 [facility] 08-12-2021 KNEE LEFT 3 [facility] Department of Radiology [address] [place] [id number] Patient Name: ELVI MOORE : 1980 Sex: F Age: Race: White Pt. Location: Patient Status: O Ordered Date: 08/12/2021 8:40:00 AM Completed Date: 08/12/2021 08:41 AM Requesting Provider: KEVIN LANE Attending Provider: KEVIN LANE Report Copy To: SELF, REFERRED Signs & Symptoms: M25.562 Pain in left knee I10 History: Comments: evaluate Exam: KNEE LEFT 3 [facility] KNEE LEFT 3 [facility] 08/12/2021 8:42 AM CLINICAL INDICATIONS: M25.562 Pain [...] report. Electronically signed: Jah Juarez. Transcribed by: [email or web address], User Resident: JODY KEITH Electronically Signed by: JAH JUAREZ @ 08/12/2021 03:46 PM I personally read this/these film(s) with this resident Normal [facility] Comment on above: Order Comment: evalu ate Amylaseon 10-09-2018 Amylase enzyme act/vol 56 U/L Normal 28-100 [facility] Comment on above: Performed By: #### L IP, CDP, CP, YVETTE ####[address] [place] [id number] CBC with Diffon 10-09-2018 Abs. Basophil <0.03 Normal 0.00-0.20 [facility] Comment on above: Performed By: #### L IP, CDP, CP, YVETTE ####[address] [place] [id number] Abs.Imm.Granulocyte <0.03 Normal 0.00-0.30 [facility] Comment on above: Performed By: #### L IP, CDP, CP, YVETTE ####[address] [place] [id number] Abs.Neutrophil (Seg) 3.08 k/uL Normal 1.50-8.10 [facility] Comment on above: Performed By: #### L IP, CDP, CP, YVETTE ####[address] [place] [address] Basophils/100 WBC Auto (Bld) 0 % Normal 0-2 [facility] Comment on above: Performed By: #### L IP, CDP, CP, YVETTE ####[address] [place] [address] Eosinophils Auto #/vol (Bld) 0.16 10*3/uL Normal 0.00-0.44 [facility] Comment on above: Performed By: #### L IP, CDP, CP, YVETTE ####[address] , [facility] Eosinophils/100 WBC Auto (Bld) 3 % Normal 1-4 [facility] Comment on above: Performed By: #### L IP, CDP, CP, YVETTE ####[address] , [facility] Erythrocyte distribution width Auto Ratio (RBC) 13.1 % Normal 11.8-14.4 [facility] Comment on above: Performed By: #### L IP, CDP, CP, YVETTE ####[address] , [place] [address] Hematocrit Auto Volume Fraction (Bld) 39.4 % Normal 36.3-47.1 [facility] Comment on above: Performed By: #### L IP, CDP, CP, YVETTE ####[address] , [place] [address] Hemoglobin mass conc (Bld) 13.0 g/dL Normal 11.9-15.1 [facility] Comment on above: Performed By: #### L IP, CDP, CP, YVETTE ####[address] [place] [address] Immature granulocytes #/vol (Bld) 0 % Normal 0 [facility] Comment on above: Performed By: #### L IP, CDP, CP, YVETTE ####[address] , [place] [address] Lymphocytes Auto #/vol (Bld) 2.83 10*3/uL Normal 1.10-3.70 [facility] Comment on above: Performed By: #### L IP, CDP, CP, YVETTE ####[address] , [facility] Lymphocytes/100 WBC Auto (Bld) 44 % High 24-43 [facility] Comment on above: Performed By: #### L IP, CDP, CP, YVETTE ####[address] , [place] [address] MCH Auto Entitic mass (RBC) 29.3 pg Normal 25.2-33.5 [facility] Comment on above: Performed By: #### L IP, CDP, CP, YVETTE ####[address] , [facility]83 MCHC Auto mass conc (RBC) 33.0 g/dL Normal 28.4-34.8 [facility] Comment on above: Performed By: #### L IP, CDP, CP, YVETTE ####[address] , [facility]83 MCV Auto Entitic volume (RBC) 88.7 fL Normal 82.6-102.9 [facility] Comment on above: Performed By: #### L IP, CDP, CP, YVETTE ####[address] , [place] [address] Monocytes Auto #/vol (Bld) 0.38 10*3/uL Normal 0.10-1.20 [facility] Comment on above: Performed By: #### L IP, CDP, CP, YVETTE ####[address] , [facility]83 Monocytes/100 WBC Auto (Bld) 6 % Normal 3-12 [facility] Comment on above: Performed By: #### L IP, CDP, CP, YVETTE ####[address] [place] [address] Neutrophil (Seg) 47 % Normal 36-65 [facility] Comment on above: Performed By: #### L IP, CDP, CP, YVETTE ####[address] , [facility]83 NRBC Automated 0.0 per 100 WBC Normal 0.0 [facility] Comment on above: Performed By: #### L IP, CDP, CP, YVETTE ####[address] [place] [id number] Platelet mean volume Auto Entitic volume (Bld) 9.4 fL Normal 8.1-13.5 [facility] Comment on above: Performed By: #### L IP, CDP, CP, YVETTE ####[address] [place] [address] Platelets Auto #/vol (Bld) 211 10*3/uL Normal 138-453 [facility] Comment on above: Performed By: #### L IP, CDP, CP, YVETTE ####[address] [place] [address] RBC Auto #/vol (Bld) 4.44 10*6/uL Normal 3.95-5.11 [facility] Comment on above: Performed By: #### L IP, CDP, CP, YVETTE ####[address] [place] [address] WBC Auto #/vol (Bld) 6.5 10*3/uL Normal 3.5-11.3 [facility] Comment on above: Performed By: #### L IP, CDP, CP, YVTETE ####[address] [place] [address] Auto Diff Performed NOT REPORTED Normal [facility] Comment on above: Performed By: #### L IP, CDP, CP, YVETTE ####[address] [place] [address] Platelets Auto #/vol (Bld) NOT REPORTED Normal [facility] Comment on above: Performed By: #### L IP, CDP, CP, YVETTE ####[address] [place] [address] RBC morphology finding Nom (Bld) NOT REPORTED Normal [facility] Comment on above: Performed By: #### L IP, CDP, CP, YVETTE ####[facility] [place] [address] WBC Morphology NOT REPORTED Normal [facility] Comment on above: Performed By: #### L IP, CDP, CP, YVETTE ####[address] [place], [place] [id number] CT ABDOMEN PELVIS WO CONTRAS Ton 10-09-2018 [...] Diaz, DOSigned by:Tl Diaz, DO10/09/18Final result Normal [facility] Comp Metabolic Profon 2017 (cont.) Normal [facility] Comment on above: Result Comment: Aver age GFR for 30-39 years old: 107 mL/min/1.73sq mChronic Kidney Disease: <60 mL/min/1.73sq mKidney failure: <15 mL/min/1.73sq meGFR calculated using average adult body mass. Additional eGFR calculator available at:http://www.[employer].com/multiple_crcl_2012.htm Performed By: #### L IP, CDP, CP, YVETTE ####[address] [place] [address] Albumin mass conc 4.2 g/dL Normal 3.5-5.2 [facility] Comment on above: Performed By: #### L IP, CDP, CP, YVETTE ####[address] [place] [address] Albumin/Globulin mass ratio 1.4 {ratio} Normal 1.0-2.5 [facility] Comment on above: Performed By: #### L IP, CDP, CP, YVETTE ####[address] [place] [address] Alkaline Phos 75 U/L Normal 35-104 [facility] Comment on above: Performed By: #### L IP, CDP, CP, YVETTE ####[address] [place] [address] ALT enzyme act/vol 10 U/L Normal 5-33 [facility] Comment on above: Performed By: #### L IP, CDP, CP, YVETTE ####[address] [place] [address] Anion gap 3 molar conc 9 mmol/L Normal 9-17 [facility] Comment on above: Performed By: #### L IP, CDP, CP, YVETTE ####[address] [place] [address] AST enzyme act/vol 13 U/L Normal <32 [facility] Comment on above: Performed By: #### L IP, CDP, CP, YVETTE ####[address] [place] [address] Bilirubin Ql (U) 0.27 mg/dL Low 0.3-1.2 [facility] Comment on above: Performed By: #### L IP, CDP, CP, YVETTE ####[address] [place] [address] BUN/CRE Ratio 17 Normal 9-20 [facility] Comment on above: Performed By: #### L IP, CDP, CP, YVETTE ####[address] [place] [address] Calcium mass conc 8.9 mg/dL Normal 8.6-10.4 [facility] Comment on above: Performed By: #### L IP, CDP, CP, YVETTE ####[address] [place] [address] Chloride molar conc 103 mmol/L Normal 98-107 [facility] Comment on above: Performed By: #### L IP, CDP, CP, YVETTE ####[address] [place] [address] CO2 molar conc 27 mmol/L Normal 20-31 [facility] Comment on above: Performed By: #### L IP, CDP, CP, YVETTE ####[address] [place] [address] Creatinine mass conc 0.60 mg/dL Normal 0.50-0.90 [facility] Comment on above: Performed By: #### L IP, CDP, CP, YVETTE ####[address] [place] [address] GFR, Amer >60 Normal >60 [facility] Comment on above: Performed By: #### L IP, CDP, CP, YVETTE ####[address] [place] [address] GFR,non Amer >60 Normal >60 [facility] Comment on above: Performed By: #### L IP, CDP, CP, YVETTE ####[address] [place] [address] Glucose mass conc 89 mg/dL Normal 70-99 [facility] Comment on above: Performed By: #### L IP, CDP, CP, YVETTE ####[address] [place] [address] Potassium molar conc 4.1 mmol/L Normal 3.7-5.3 [facility] Comment on above: Performed By: #### L IP, CDP, CP, YVETTE ####[address] [place] [address] Protein mass conc 7.2 g/dL Normal 6.4-8.3 [facility] Comment on above: Performed By: #### L IP, CDP, CP, YVETTE ####[address] [place] [address] Sodium molar conc 139 mmol/L Normal 135-144 [facility] Comment on above: Performed By: #### L IP, CDP, CP, YVETTE ####[address] [place] [address] Staging: Normal [facility] Comment on above: Result Comment: Stag e 1: Some kidney damage normal GFRStage 2: Mild kidney damage GFR 60-89Stage 3: Moderate kidney damage GFR 30-59Stage 4: Severe kidney damage GFR 15-29Stage 5: Severe kidney damage GFR <15ESRD - chronic treatment by dialysis or transplant Performed By: #### L IP, CDP, CP, YVETTE ####[address] [place] [address] Urea nitrogen mass conc 10 mg/dL Normal 6-20 [facility] Comment on above: Performed By: #### L IP, CDP, CP, YVETTE ####[address] [place], [place] [id number] Cult,Urineon 10-09-2018 Cult,Urine Specimen Description .CLEAN CATCH URINE Special Requests NOT REPORTED Culture STREPTOCOCCI, BETA HEMOLYTIC GROUP B 10 to 50,000 CFU/ML Report Status FINAL 10/09/2018 Normal [facility] Comment on above: Performed By: #### C DP ####[address] [id number] #### BMP, HCG ####[address] [place] [address] Lipaseon 10-09-2018 Lipase enzyme act/vol 63 U/L High 13-60 [facility] Comment on above: Performed By: #### L IP, CDP, CP, YVETTE ####[address] [place] [address] UA w/Reflex Cultureon 2017 Acetoacetic Acid,Ur Negative Normal NEG [facility] Comment on above: Performed By: #### U MICAO, UAX ####[address] [place] [address] Bilirubin, SemiQt,Ur Negative Normal NEG [facility] Comment on above: Performed By: #### U MICAO, UAX ####[address] [place] [address] Color YELLOW Normal YEL [facility] Comment on above: Performed By: #### U MICAO, UAX ####[address] [place] [address] Glucose,Semi-qnt,Ur Negative Normal NEG [facility] Comment on above: Performed By: #### U MICAO, UAX ####[address] [place] [address] Hemoglobin, Ur 3+ Abnormal NEG [facility] Comment on above: Performed By: #### U MICAO, UAX ####[address] [place] [address] Leuckocyte Esterase SMALL Abnormal NEG [facility] Comment on above: Performed By: #### U MICAO, UAX ####[address] [place] [address] Nitrite,Ur Negative Normal NEG [facility] Comment on above: Performed By: #### U MICAO, UAX ####[address] [place] [address] PH,Ur 7.5 Normal 5.0-9.0 [facility] Comment on above: Performed By: #### U MICAO, UAX ####[address] [place] [address] Protein, Semi-qnt,Ur Negative Normal NEG [facility] Comment on above: Performed By: #### U MICAO, UAX ####[address] [place] [address] Spec. [place],Ur 1.010 Normal 1.010-1.020 [facility] Comment on above: Performed By: #### U MICAO, UAX ####[address] [place] [address] Turbidity CLOUDY Abnormal CLEAR [facility] Comment on above: Performed By: #### U MICAO, UAX ####[address] [place] [address] Urobilinogen,Ur Normal Normal NORM [facility] Comment on above: Performed By: #### U MICAO, UAX ####[address] [place] [address] Comment NOT REPORTED Normal [facility] Comment on above: Performed By: #### U MICAO, UAX ####[address] [place] [address] Urinalysis,Microon 8 ----- Normal [facility] Comment on above: Performed By: #### U MICAO, UAX ####[address] [place] [address] Amorphous Sediment 2+ Abnormal NONE [facility] Comment on above: Performed By: #### U MICAO, UAX ####[address] [place] [address] Epithelial cells 2 TO 5 Normal 0-25 [facility] Comment on above: Performed By: #### U MICAO, UAX ####[address] [place] [address] RBC Test strip #/vol (U) 5 TO 10 Normal 0-2 [facility] Comment on above: Performed By: #### U MICAO, UAX ####[address] [place] [address] Urine WBC's 0 TO 2 Normal 0-5 [facility] Comment on above: Performed By: #### U RAHULO, UAX ####[address] [place] [address] Bacteria NOT REPORTED Normal NONE [facility] Comment on above: Performed By: #### U RAHULO, UAX ####[address] [place] [address] Casts NOT REPORTED Normal [facility] Comment on above: Performed By: #### U RAHULO, UAX ####[address] [place] [address] Crystals NOT REPORTED Normal NONE [facility] Comment on above: Performed By: #### U RAHULO, UAX ####[address] [place] [address] Epithelial, Renal NOT REPORTED Normal 0 [facility] Comment on above: Performed By: #### U MICAO, UAX ####[address] [place] [address] Mucus Strands NOT REPORTED Normal NONE [facility] Comment on above: Performed By: #### U MICAO, UAX ####[address] [place] [address] Other Observations NOT REPORTED [facility] Comment on above: Performed By: #### U ISIAH, UAX ####[address] [place] [address] Trichomonas NOT REPORTED Normal NONE [facility] Comment on above: Performed By: #### U RAHULO, UAX ####[address] [place] [address] Yeast NOT REPORTED Normal NONE [facility] Comment on above: Performed By: #### U ISIAH, UAX ####[address] [place] [address] Basic Metabolic Profon 06-13 (cont.) Normal [facility] Comment on above: Result Comment: Aver age GFR for 30-39 years old: 107 mL/min/1.73sq mChronic Kidney Disease: <60 mL/min/1.73sq mKidney failure: <15 mL/min/1.73sq meGFR calculated using average adult body mass. Additional eGFR calculator available at:http://www.NanoDynamics.CultureIQ/multiple_crcl_2012.htm Performed By: #### B RHIANNA, CDP ####[address] [place] [address] Anion gap 3 molar conc 12 mmol/L Normal 9-17 [facility] Comment on above: Performed By: #### B MP, CDP ####[address] [place] [address] BUN/CRE Ratio 17 Normal 9-20 [facility] Comment on above: Performed By: #### B MP, CDP ####[address] [place] [address] Calcium mass conc 9.1 mg/dL Normal 8.6-10.4 [facility] Comment on above: Performed By: #### B MP, CDP ####[address] [place] [address] Chloride molar conc 103 mmol/L Normal 98-107 [facility] Comment on above: Performed By: #### B MP, CDP ####[address] [place] [address] CO2 molar conc 26 mmol/L Normal 20-31 [facility] Comment on above: Performed By: #### B MP, CDP ####[address] [place] [address] Creatinine mass conc 0.72 mg/dL Normal 0.50-0.90 [facility] Comment on above: Performed By: #### B MP, CDP ####[address] [place] [address] GFR, Amer >60 Normal >60 [facility] Comment on above: Performed By: #### B MP, CDP ####[address] [place] [address] GFR,non Amer >60 Normal >60 [facility] Comment on above: Performed By: #### B MP, CDP ####[address] [place] [address] Glucose mass conc 98 mg/dL Normal 70-99 [facility] Comment on above: Performed By: #### B MP, CDP ####[address] [place] [address] Potassium molar conc 3.7 mmol/L Normal 3.7-5.3 [facility] Comment on above: Performed By: #### B MP, CDP ####[address] [place] [address] Sodium molar conc 141 mmol/L Normal 135-144 [facility] Comment on above: Performed By: #### B MP, CDP ####[address] [place] [address] Staging: Normal [facility] Comment on above: Result Comment: Stag e 1: Some kidney damage normal GFRStage 2: Mild kidney damage GFR 60-89Stage 3: Moderate kidney damage GFR 30-59Stage 4: Severe kidney damage GFR 15-29Stage 5: Severe kidney damage GFR <15ESRD - chronic treatment by dialysis or transplant Performed By: #### B RHIANNA, CDP ####[address] , [place] [address] Urea nitrogen mass conc 12 mg/dL Normal 6-20 [facility] Comment on above: Performed By: #### B RHIANNA, CDP ####[address] , [place] [address] CBC with Diffon 06-13-2018 Abs. Basophil <0.03 Normal 0.00-0.20 [facility] Comment on above: Performed By: #### B RHIANNA, CDP ####[address] [place] [address] Abs.Imm.Granulocyte <0.03 Normal 0.00-0.30 [facility] Comment on above: Performed By: #### B RHIANNA, CDP ####[address] [place] [address] Abs.Neutrophil (Seg) 4.75 k/uL Normal 1.50-8.10 [facility] Comment on above: Performed By: #### B RHIANNA, CDP ####[address] [place] [address] Basophils/100 WBC Auto (Bld) 0 % Normal 0-2 [facility] Comment on above: Performed By: #### B RHIANNA, CDP ####[address] [place] [address] Eosinophils Auto #/vol (Bld) 0.23 10*3/uL Normal 0.00-0.44 [facility] Comment on above: Performed By: #### B RHIANNA, CDP ####[address] , [facility]83 Eosinophils/100 WBC Auto (Bld) 2 % Normal 1-4 [facility] Comment on above: Performed By: #### B MP, CDP ####[address] , [facility]83 Erythrocyte distribution width Auto Ratio (RBC) 12.9 % Normal 11.8-14.4 [facility] Comment on above: Performed By: #### B MP, CDP ####[address] , [facility]83 Hematocrit Auto Volume Fraction (Bld) 38.9 % Normal 36.3-47.1 [facility] Comment on above: Performed By: #### B RHIANNA, CDP ####[address] [place] [address] Hemoglobin mass conc (Bld) 12.6 g/dL Normal 11.9-15.1 [facility] Comment on above: Performed By: #### B RHIANNA, CDP ####[address] , [facility]83 Immature granulocytes #/vol (Bld) 0 % Normal 0 [facility] Comment on above: Performed By: #### B RHIANNA, CDP ####[address] [place] [address] Lymphocytes Auto #/vol (Bld) 3.99 10*3/uL High 1.10-3.70 [facility] Comment on above: Performed By: #### B MP, CDP ####[address] [place] [id number] Lymphocytes/100 WBC Auto (Bld) 42 % Normal 24-43 [facility] Comment on above: Performed By: #### B MP, CDP ####[address] [place] [address] MCH Auto Entitic mass (RBC) 29.4 pg Normal 25.2-33.5 [facility] Comment on above: Performed By: #### B MP, CDP ####[address] [place] [address] MCHC Auto mass conc (RBC) 32.4 g/dL Normal 28.4-34.8 [facility] Comment on above: Performed By: #### B MP, CDP ####[address] , [facility]83 MCV Auto Entitic volume (RBC) 90.7 fL Normal 82.6-102.9 [facility] Comment on above: Performed By: #### B MP, CDP ####[address] [place] [address] Monocytes Auto #/vol (Bld) 0.49 10*3/uL Normal 0.10-1.20 [facility] Comment on above: Performed By: #### B MP, CDP ####[address] , [facility]83 Monocytes/100 WBC Auto (Bld) 5 % Normal 3-12 [facility] Comment on above: Performed By: #### B MP, CDP ####[address] [place] [address] Neutrophil (Seg) 51 % Normal 36-65 [facility] Comment on above: Performed By: #### B MP, CDP ####[address] [place] [address] NRBC Automated 0.0 per 100 WBC Normal 0.0 [facility] Comment on above: Performed By: #### B MP, CDP ####[address] [place] [address] Platelet mean volume Auto Entitic volume (Bld) 9.6 fL Normal 8.1-13.5 [facility] Comment on above: Performed By: #### B MP, CDP ####[address] [place] [address] Platelets Auto #/vol (Bld) 224 10*3/uL Normal 138-453 [facility] Comment on above: Performed By: #### B MP, CDP ####[address] [place] [address] RBC Auto #/vol (Bld) 4.29 10*6/uL Normal 3.95-5.11 [facility] Comment on above: Performed By: #### B MP, CDP ####[address] [place] [address] WBC Auto #/vol (Bld) 9.5 10*3/uL Normal 3.5-11.3 [facility] Comment on above: Performed By: #### B MP, CDP ####[address] [place] [address] Auto Diff Performed NOT REPORTED Normal [facility] Comment on above: Performed By: #### B MP, CDP ####[address] [place] [address] Platelets Auto #/vol (Bld) NOT REPORTED Normal [facility] Comment on above: Performed By: #### B MP, CDP ####[address] [place] [address] RBC morphology finding Nom (Bld) NOT REPORTED Normal [facility] Comment on above: Performed By: #### B MP, CDP ####[address] [place] [address] WBC Morphology NOT REPORTED Normal [facility] Comment on above: Performed By: #### B MP, CDP ####[address] [place] [address] CT ABDOMEN PELVIS WO CONTRAS Ton 06-13-2018 [...] by:PAULINE Priceigned by:Aric Landeros MD//18Final result Normal [facility] Urinalysis w/ Microon 2017 ----- Normal [facility] Comment on above: Performed By: #### U AMIC ####[address] [place] [address] Acetoacetic Acid,Ur Negative Normal NEG [facility] Comment on above: Performed By: #### U AMIC ####[address] [place] [address] Bacteria 1+ Abnormal NONE [facility] Comment on above: Performed By: #### U AMIC ####[address] [place] [address] Bilirubin, SemiQt,Ur Negative Normal NEG [facility] Comment on above: Performed By: #### U AMIC ####[address] [place] [address] Color YELLOW Normal YEL [facility] Comment on above: Performed By: #### U AMIC ####[address] [place] [address] Epithelial cells 0 TO 2 Normal 0-25 [facility] Comment on above: Performed By: #### U AMIC ####[address] [place] [address] Glucose,Semi-qnt,Ur Negative Normal NEG [facility] Comment on above: Performed By: #### U AMIC ####[address] [place] [address] Hemoglobin, Ur 3+ Abnormal NEG [facility] Comment on above: Performed By: #### U AMIC ####[address] [place] [address] Leuckocyte Esterase TRACE Abnormal NEG [facility] Comment on above: Performed By: #### U AMIC ####[address] [place] [address] Nitrite,Ur Negative Normal NEG [facility] Comment on above: Performed By: #### U AMIC ####[address] [place] [address] PH,Ur 6.0 Normal 5.0-9.0 [facility] Comment on above: Performed By: #### U AMIC ####[address] [place] [address] Protein mass conc Negative Normal NEG [facility] Comment on above: Performed By: #### U AMIC ####[address] [place] [address] RBC Test strip #/vol (U) 50 TO 100 Normal 0-2 [facility] Comment on above: Performed By: #### U AMIC ####[address] [place] [address] Spec. [place],Ur 1.025 High 1.010-1.020 [facility] Comment on above: Performed By: #### U AMIC ####[address] [place] [address] Turbidity CLEAR Normal CLEAR [facility] Comment on above: Performed By: #### U AMIC ####[address] [place] [address] Urine WBC's 0 TO 2 Normal 0-5 [facility] Comment on above: Performed By: #### U AMIC ####[address] [place] [address] Urobilinogen,Ur Normal Normal NORM [facility] Comment on above: Performed By: #### U AMIC ####[address] [place] [address] Amorphous Sediment NOT REPORTED Normal NONE [facility] Comment on above: Performed By: #### U AMIC ####[address] [place] [address] Casts NOT REPORTED Normal [facility] Comment on above: Performed By: #### U AMIC ####[address] [place] [address] Comment NOT REPORTED Normal [facility] Comment on above: Performed By: #### U AMIC ####[address] [place] [address] Crystals NOT REPORTED Normal NONE [facility] Comment on above: Performed By: #### U AMIC ####[address] [place] [address] Epithelial, Renal NOT REPORTED Normal 0 [facility] Comment on above: Performed By: #### U AMIC ####[address] [place] [address] Mucus Strands NOT REPORTED Normal NONE [facility] Comment on above: Performed By: #### U AMIC ####[address] [place] [address] Other Observations NOT REPORTED Normal NREQ [facility] Comment on above: Performed By: #### U AMIC ####[address] , [place] [id number] Trichomonas NOT REPORTED Normal NONE [facility] Comment on above: Performed By: #### U AMIC ####[address] [place] [address] Yeast NOT REPORTED Normal NONE [facility] Comment on above: Performed By: #### U AMIC ####[address] , [place] [id number] APTTon 02-25-2018 aPTT Coag time (Bld) 32.2 s Normal 23.2-34.4 [facility] Comment on above: Result Comment: Perf ormed at [address] [place], [place] [id number] [phone] Performed By: #### P TT, PT ####[address] , [place] [id number] Basic Metabolic Profon 02-25 (cont.) Normal [facility] Comment on above: Result Comment: Aver age GFR for 30-39 years old: 107 mL/min/1.73sq mChronic Kidney Disease: <60 mL/min/1.73sq mKidney failure: <15 mL/min/1.73sq meGFR calculated using average adult body mass. Additional eGFR calculator available at:http://www.NanoDynamics.com/multiple_crcl_2012.htm Performed By: #### C DP ####[place] [id number] [place] [address] #### BMP, HCG ####[address] , [place] [id number] Anion gap 3 molar conc 12 mmol/L Normal 9-17 [facility] Comment on above: Performed By: #### C DP ####[address] [address] #### BMP, HCG ####[address] [place] [address] BUN/CRE Ratio 20 Normal 9-20 [facility] Comment on above: Performed By: #### C DP ####[address] [address] #### BMP, HCG ####[address] [place] [address] Calcium mass conc 9.4 mg/dL Normal 8.6-10.4 [facility] Comment on above: Performed By: #### C DP ####[address] [address] #### BMP, HCG ####[address] [place] [address] Chloride molar conc 101 mmol/L Normal 98-107 [facility] Comment on above: Performed By: #### C DP ####[address] [address] #### BMP, HCG ####[address] [place] [address] CO2 molar conc 28 mmol/L Normal 20-31 [facility] Comment on above: Performed By: #### C DP ####[address] [address] #### BMP, HCG ####[address] [place] [address] Creatinine mass conc 0.59 mg/dL Normal 0.50-0.90 [facility] Comment on above: Performed By: #### C DP ####[address] [address] #### BMP, HCG ####[address] [place] [address] GFR, Amer >60 Normal >60 [facility] Comment on above: Performed By: #### C DP ####[address] [address] #### BMP, HCG ####[address] [place] [address] GFR,non Amer >60 Normal >60 [facility] Comment on above: Performed By: #### C DP ####[address] [address] #### BMP, HCG ####[address] [place] [address] Glucose mass conc 119 mg/dL High 70-99 [facility] Comment on above: Performed By: #### C DP ####[address] [address] #### BMP, HCG ####[address] [place] [address] Potassium molar conc 3.7 mmol/L Normal 3.7-5.3 [facility] Comment on above: Performed By: #### C DP ####[address] [address] #### BMP, HCG ####[address] [place] [address] Sodium molar conc 141 mmol/L Normal 135-144 [facility] Comment on above: Performed By: #### C DP ####[address] [address] #### BMP, HCG ####[address] [place] [address] Staging: Normal [facility] Comment on above: Result Comment: Stag e 1: Some kidney damage normal GFRStage 2: Mild kidney damage GFR 60-89Stage 3: Moderate kidney damage GFR 30-59Stage 4: Severe kidney damage GFR 15-29Stage 5: Severe kidney damage GFR <15ESRD - chronic treatment by dialysis or transplantPerformed at [address] [place] [address] Performed By: #### C DP ####[address] [address] #### BMP, HCG ####[address] [place] [address] Urea nitrogen mass conc 12 mg/dL Normal 6-20 [facility] Comment on above: Performed By: #### C DP ####[address] [address] #### BMP, HCG ####[address] [place] [address] CBC with Diffon 02-25-2018 Abs. Basophil 0.03 k/uL Normal 0.00-0.20 [facility] Comment on above: Performed By: #### C DP ####[address] [address] #### BMP, HCG ####[address] [facility]83 Abs.Imm.Granulocyte 0.03 k/uL Normal 0.00-0.30 [facility] Comment on above: Result Comment: Perf ormed at [address] [address] Performed By: #### C DP ####[address] [address] #### BMP, HCG ####[address] [place] [address] Abs.Neutrophil (Seg) 5.34 k/uL Normal 1.50-8.10 [facility] Comment on above: Performed By: #### C DP ####[address] [address] #### BMP, HCG ####[address] [place] [address] Basophils/100 WBC Auto (Bld) 0 % Normal 0-2 [facility] Comment on above: Performed By: #### C DP ####[address] [address] #### BMP, HCG ####[address] [place] [address] Eosinophils Auto #/vol (Bld) 0.21 10*3/uL Normal 0.00-0.44 [facility] Comment on above: Performed By: #### C DP ####[address] [address] #### BMP, HCG ####[address] [place] [address] Eosinophils/100 WBC Auto (Bld) 2 % Normal 1-4 [facility] Comment on above: Performed By: #### C DP ####[address] [address] #### BMP, HCG ####[address] [place] [address] Erythrocyte distribution width Auto Ratio (RBC) 12.3 % Normal 11.8-14.4 [facility] Comment on above: Performed By: #### C DP ####[address] [address] #### BMP, HCG ####[address] [place] [address] Hematocrit Auto Volume Fraction (Bld) 41.4 % Normal 36.3-47.1 [facility] Comment on above: Performed By: #### C DP ####[address] [address] #### BMP, HCG ####[address] [place] [address] Hemoglobin mass conc (Bld) 14.0 g/dL Normal 11.9-15.1 [facility] Comment on above: Performed By: #### C DP ####[address] [address] #### BMP, HCG ####[address] [place] [address] Immature granulocytes #/vol (Bld) 0 % Normal 0 [facility] Comment on above: Performed By: #### C DP ####[address] [address] #### BMP, HCG ####[address] [place] [address] Lymphocytes Auto #/vol (Bld) 3.84 10*3/uL High 1.10-3.70 [facility] Comment on above: Performed By: #### C DP ####[address] [address] #### BMP, HCG ####[address] [place] [address] Lymphocytes/100 WBC Auto (Bld) 38 % Normal 24-43 [facility] Comment on above: Performed By: #### C DP ####[address] [address] #### BMP, HCG ####[address] , [place] [address] MCH Auto Entitic mass (RBC) 29.5 pg Normal 25.2-33.5 [facility] Comment on above: Performed By: #### C DP ####[address] [address] #### BMP, HCG ####[address] [place] [id number] MCHC Auto mass conc (RBC) 33.8 g/dL Normal 28.4-34.8 [facility] Comment on above: Performed By: #### C DP ####[address] [address] #### BMP, HCG ####[address] [place] [address] MCV Auto Entitic volume (RBC) 87.3 fL Normal 82.6-102.9 [facility] Comment on above: Performed By: #### C DP ####[address] [address] #### BMP, HCG ####[address] , [place] [address] Monocytes Auto #/vol (Bld) 0.54 10*3/uL Normal 0.10-1.20 [facility] Comment on above: Performed By: #### C DP ####[address] [address] #### BMP, HCG ####[address] [place] [address] Monocytes/100 WBC Auto (Bld) 5 % Normal 3-12 [facility] Comment on above: Performed By: #### C DP ####[address] [address] #### BMP, HCG ####[address] , [facility]83 Neutrophil (Seg) 55 % Normal 36-65 [facility] Comment on above: Performed By: #### C DP ####[address] [address] #### BMP, HCG ####[address] [place] [address] NRBC Automated 0.0 per 100 WBC Normal 0.0 [facility] Comment on above: Performed By: #### C DP ####[address] [address] #### BMP, HCG ####[address] [place] [address] Platelet mean volume Auto Entitic volume (Bld) 9.8 fL Normal 8.1-13.5 [facility] Comment on above: Performed By: #### C DP ####[address] [address] #### BMP, HCG ####[address] [place] [address] Platelets Auto #/vol (Bld) 270 10*3/uL Normal 138-453 [facility] Comment on above: Performed By: #### C DP ####[address] [address] #### BMP, HCG ####[address] [place] [address] RBC Auto #/vol (Bld) 4.74 10*6/uL Normal 3.95-5.11 [facility] Comment on above: Performed By: #### C DP ####[address] [address] #### BMP, HCG ####[address] [place] [address] WBC Auto #/vol (Bld) 10.0 10*3/uL Normal 3.5-11.3 [facility] Comment on above: Performed By: #### C DP ####[address] [address] #### BMP, HCG ####[address] [place] [address] Auto Diff Performed NOT REPORTED Normal [facility] Comment on above: Performed By: #### C DP ####[address] [address] #### BMP, HCG ####[address] [place] [address] Platelets Auto #/vol (Bld) NOT REPORTED Normal [facility] Comment on above: Performed By: #### C DP ####[address] [address] #### BMP, HCG ####[address] [place] [address] RBC morphology finding Nom (Bld) NOT REPORTED Normal [facility] Comment on above: Performed By: #### C DP ####[address] [address] #### BMP, HCG ####[address] [place] [address] WBC Morphology NOT REPORTED Normal [facility] Comment on above: Performed By: #### C DP ####[address] [address] #### BMP, HCG ####[address] [place] [address] CT ABDOMEN PELVIS WO CONTRAS Ton 02-25-2018 [...] by:PAULINE Menjivarigned by:Martina García MD02/25/18Final result Normal [facility] HCG Screen, Bloodon 02-26-20 18 HCG Qn Negative Normal NEG [facility] Comment on above: Result Comment: Spec imens with hCG levels near the threshold of the test (25 mIU/mL) may give a negative or indeterminate result. In such cases, another test should be performed with a new specimen in 48-72 hours. If early is suspected clinically in this setting, correlation with quantitative serum b-hCG level is suggested.[facility] has confirmed the use of plasma for this test. This has not been cleared or approved by the [place].S. Food and Drug Administration. The FDA has determined that such clearance is not necessary.Performed at [address] [place] [address] Performed By: #### C DP ####[facility] [place], [place] [id number] #### BMP, HCG ####[address] [place] [address] PTon 02-25-2018 INR Coag RelTime (PPP) 1.0 {INR} Normal 0.9-1.2 [facility] Comment on above: Result Comment: Perf ormed at [address] [place] [address] Performed By: #### P TT, PT ####[address] [place] [address] Prothrombin time (PT) Coag time (PPP) 10.8 s Normal 9.7-12.2 [facility] Comment on above: Performed By: #### P TT, PT ####[address] [place] [address] Urinalysis w/ Microon 2017 ----- Normal [facility] Comment on above: Performed By: #### U AMIC ####[address] [place] [address] Acetoacetic Acid,Ur Negative Normal NEG [facility] Comment on above: Performed By: #### U AMIC ####[address] [place] [address] Amorphous Sediment 2+ Abnormal NONE [facility] Comment on above: Result Comment: Perf ormed at [address] [place] [address] Performed By: #### U AMIC ####[address] [place] [address] Bacteria 1+ Abnormal NONE [facility] Comment on above: Performed By: #### U AMIC ####[address] [place] [address] Bilirubin, SemiQt,Ur Negative Normal NEG [facility] Comment on above: Performed By: #### U AMIC ####[address] [place] [address] Color YELLOW Normal YEL [facility] Comment on above: Performed By: #### U AMIC ####[address] [place] [address] Epithelial cells 0 TO 2 Normal 0-25 [facility] Comment on above: Performed By: #### U AMIC ####[address] [place] [address] Glucose,Semi-qnt,Ur Negative Normal NEG [facility] Comment on above: Performed By: #### U AMIC ####[address] [place] [address] Hemoglobin, Ur 2+ Abnormal NEG [facility] Comment on above: Performed By: #### U AMIC ####[address] [place] [address] Leuckocyte Esterase TRACE Abnormal NEG [facility] Comment on above: Performed By: #### U AMIC ####[address] [place] [address] Mucus Strands TRACE Abnormal NONE [facility] Comment on above: Performed By: #### U AMIC ####[address] [place] [address] Nitrite,Ur Negative Normal NEG [facility] Comment on above: Performed By: #### U AMIC ####[address] [place] [address] PH,Ur 7.5 Normal 5.0-9.0 [facility] Comment on above: Performed By: #### U AMIC ####[address] [place] [address] Protein mass conc Negative Normal NEG [facility] Comment on above: Performed By: #### U AMIC ####[address] [place] [address] RBC Test strip #/vol (U) 5 TO 10 Normal 0-2 [facility] Comment on above: Performed By: #### U AMIC ####[address] [place] [address] Spec. [place],Ur 1.010 Normal 1.010-1.020 [facility] Comment on above: Performed By: #### U AMIC ####[address] [place] [address] Turbidity CLEAR Normal CLEAR [facility] Comment on above: Performed By: #### U AMIC ####[address] [place] [address] Urine WBC's 0 TO 2 Normal 0-5 [facility] Comment on above: Performed By: #### U AMIC ####[address] [place] [address] Urobilinogen,Ur Normal Normal NORM [facility] Comment on above: Performed By: #### U AMIC ####[address] [place] [address] Casts NOT REPORTED Normal [facility] Comment on above: Performed By: #### U AMIC ####[address] [place] [address] Comment NOT REPORTED Normal [facility] Comment on above: Performed By: #### U AMIC ####[address] [place] [address] Crystals NOT REPORTED Normal NONE [facility] Comment on above: Performed By: #### U AMIC ####[address] [place] [address] Epithelial, Renal NOT REPORTED Normal 0 [facility] Comment on above: Performed By: #### U AMIC ####[address] [place] [address] Other Observations NOT REPORTED Normal NREQ [facility] Comment on above: Performed By: #### U AMIC ####[address] [place] [address] Trichomonas NOT REPORTED Normal NONE [facility] Comment on above: Performed By: #### U AMIC ####[facility] [place] [address] Yeast NOT REPORTED Normal NONE [facility] Comment on above: Performed By: #### U AMIC ####[address] [place] [address] Otolaryngology Office/Clinic Noteon 2017 Otolaryngology Office/Clinic Note [...] _Zhane Tamez MD 12/30/17 16:02 EDT Normal [facility] Otolaryngology Office/Clinic Noteon 11-18-2017 Otolaryngology Office/Clinic [...] _Zhane Tamez MD 11/18/17 16:31 EST Normal [facility] Otolaryngology Office/Clinic Note Patient seen for dispense of bilateral swim plugs. Both plugs display good fit in the ears, and patient confirmed comfort of fit. Proper insertion/removal was practiced successfully. Plan: Return if issues arise regarding swim plugs. N/C, swim plugs paid at last appointment.Electronicall y signed by _Rima Muñoz 11/18/17 16:04 EST Normal [facility] Otolaryngology Office/Clinic Noteon 10-28-2017 Otolaryngology Office/Clinic Note Patient seen for bilateral earmold impressions for swim plugs. Earmold impressions made without incident and otoscopy prior to and following impressions was unremarkable. Patient chose purple, pink, and green swirl color for plugs. Plan: Return in 3 weeks for dispense, prior to follow-up appointment with Dr. Zhane Tamez. 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.POSTOPERATIVE DIAGNOSIS: Chronic myringitis, left ear, secondary toforeign body reaction to retained tube with excessive granulation tissueand TM perf.OPERATIVE PROCEDURE: Debridement of granulation tissue with removal offoreign body at TM and myringoplasty.ANESTHESIA: General.ANESTHESIOLOGIST: DUY DubonON: Zhane Tamez, WALDEMAROMPLICATIONS: None.BLOOD LOSS: 10 mL.FINDINGS: [...] the procedure well.ZHANE TAMEZD: 10/14/2017 14:55:29 EN/V_[id number]_IJob#: [id number] Doc#: [id number]: Normal [facility] OPERATIVE REPORT [address] [address] OPERATIVE REPORTPATIENT NAME: ELVI MOORE : 1980MED REC NO: [id number] ROOM:ACCOUNT NO: [id number] ADMIT DATE: 10/14/2017PROVIDER: Zhane TamezDATE OF PROCEDURE: 10/14/2017PREOPERATIVE DIAGNOSIS: Granulation tissue, TM perf with retained silveroxide myringotomy tube.POSTOPERATIVE DIAGNOSIS: Granulation tissue, TM perf with retained silveroxide myringotomy tube.OPERATIVE PROCEDURES: Removal of retained tube, debridement of granulationtissue, and placement of paper patch myringoplasty.ANESTHESIA: General.ANESTHESIOLOGIST: DUY DubonON: Zhane Tamez, MDCOMPLICATIONS: None.FINDINGS: Retained tube in [...] tolerated theprocedure well.ZHANE TAMEZD: 10/14/2017 10:15:44 DORA/Florian_FOSTER_IJob#: [id number] Doc#: [id number]: Normal [facility] Otolaryngology Office/Clinic Noteon 09-16-2017 Otolaryngology Office/Clinic [...] _Zhane Tamez MD 09/16/17 16:06 EST Normal [facility] Otolaryngology Consultationo n 04-20-2017 Otolaryngology Consultation [...] _Zhane Tamez MD 04/20/17 16:51 EDT Normal [facility] Vital Signs Date Time Vital Sign Value Performing Clinician Kvng roberto 01-06-2024 18:12-0400 Body height 167.64 cm MD Arleth Acharya Work Phone: [facility] 01-06-2024 18:12-0400 Body mass index (BMI) [Ratio] 25.6 kg/m2 MD Arleth Acharya Work Phone: [facility] 01-06-2024 18:12-0400 Body temperature 98.2 [degF] MD Arleth Acharya Work Phone: [facility] 01-06-2024 18:12-0400 Body weight 72 kg MD Arleth Acharya Work Phone: [facility] 01-06-2024 18:12-0400 Heart rate 93 /min MD Arleth Acharya Work Phone: [facility] 01-06-2024 18:12-0400 Respiratory rate 16 /min MD Arleth Acharya Work Phone: [facility] 01-06-2024 18:12-0400 SaO2% (BldA) [Mass fraction] 99 % MD Arleth Acharya Work Phone: [facility] 09-13-2023 12:04-0500 Blood Pressure Location Diana HAWKINS [facility] 09-13-2023 12:04-0500 Diastolic blood pressure 74 mm[Hg] Diana HAWKINS [facility] 09-13-2023 12:04-0500 Heart rate 64 /min Diana HAWKINS [facility] 09-13-2023 12:04-0500 Respiratory rate 16 /min Diana HAWKINS [facility] 09-13-2023 12:04-0500 Systolic blood pressure 128 mm[Hg] Diana HAWKINS [facility] 05-28-2023 11:12-0400 Body temperature 98 [degF] MD Arleth Acharya Work Phone: [facility] 05-28-2023 11:12-0400 Body weight 70.76 kg MD Arleth Acharya Work Phone: [facility] 05-28-2023 11:12-0400 Diastolic blood pressure 94 mm[Hg] MD Arleth Acharya Work Phone: [facility] 05-28-2023 11:12-0400 Heart rate 88 /min MD Arleth Acharya Work Phone: [facility] 05-28-2023 11:12-0400 Respiratory rate 16 /min MD Arleth Acharya Work Phone: [facility] 05-28-2023 11:12-0400 SaO2% (BldA) [Mass fraction] 98 % MD Arleth Acharya Work Phone: [facility] 05-28-2023 11:12-0400 Systolic blood pressure 131 mm[Hg] MD Arleth Acharya Work Phone: [facility] 05-28-2023 11:00-0400 Body height 167.64 cm MD Arleth Acharya Work Phone: [facility] 06-29-2022 09:25-0400 Blood Pressure Location Diana HAWKINS [facility] 06-29-2022 09:25-0400 Diastolic blood pressure 84 mm[Hg] Diana HAWKINS [facility] 06-29-2022 09:25-0400 Heart rate 84 /min Diana HAWKINS [facility] 06-29-2022 09:25-0400 Respiratory rate 16 /min Diana HAWKINS [facility] 06-29-2022 09:25-0400 Systolic blood pressure 115 mm[Hg] Diana HAWKINS [facility] Encounters Encounter Date Encounter Type Care Provider Facility Start: 03-07-2024 ambulatory JOCELINE Mcclure ty:SHARAD Hinckley Start: 02-15-2024 End: 02-16-2024 ambulatory ARLETH ACHARYA [facility] Start: 02-08-2024 End: 02-09-2024 ambulatory DIANA HAWKINS [facility] Start: 02-07-2024 ambulatory Diana Mcclure ty:SHARAD Amaya Start: 01-06-2024 End: 01-06-2024 ambulatory MD Arleth Acharya Work Phone: [facility] Work Phone: Start: 01-06-2024 End: 01-06-2024 Patient encounter procedure MD Arleth Acharya Work Phone: [facility] Work Phone: Start: 12-24-2023 ambulatory RUKHSANA MILLER [facility] Start: 12-10-2023 End: 12-11-2023 Emergency department patient visit [facility] Start: 11-19-2023 End: 11-20-2023 ambulatory [facility] Start: 11-08-2023 End: 11-09-2023 ambulatory [facility] Start: 10-28-2023 ambulatory RUKHSANA MILLER [facility] Start: 10-19-2023 ambulatory Diana Mcclure ty:SHARAD Palacios Start: 10-14-2023 End: 10-14-2023 Emergency department patient visit ARLETH ACHARYA [facility] Start: 10-14-2023 End: 10-15-2023 Emergency department patient visit [facility] Start: 10-13-2023 End: 10-15-2023 Emergency department patient visit [facility] Start: 10-12-2023 End: 10-13-2023 ambulatory Diana HAWKINS [facility] Start: 10-12-2023 End: 10-12-2023 Patient encounter procedure Diana HAWKINS [facility] Start: 09-20-2023 ambulatory Diana HAWKINS Facility :[facility] Start: 09-16-2023 ambulatory Diana HAWKINS Facili ty:[id number] Start: 09-13-2023 End: 09-14-2023 ambulatory Diana HAWKINS Facility:[facility] Start: 09-13-2023 End: 09-13-2023 Patient encounter procedure Diana HAWKINS [facility] Start: 08-19-2023 ambulatory [facility] Start: 07-20-2023 End: 07-21-2023 ambulatory [facility] Start: 07-20-2023 End: 07-20-2023 ambulatory [facility] Start: 06-28-2023 ambulatory Osiris Calderón Facility:[facility] Start: 06-01-2023 End: 06-01-2023 ambulatory [facility] Start: 05-28-2023 End: 05-28-2023 ambulatory MD Arleth Acharya Work Phone: [facility] Work Phone: Start: 05-28-2023 End: 05-28-2023 Registered Recurring MD Arleth Acharya Work Phone: [facility] Work Phone: Start: 05-04-2023 ambulatory [facility] Start: 04-28-2023 End: 04-28-2023 ambulatory [facility] Start: 04-15-2023 ambulatory [facility] Start: 03-17-2023 ambulatory RUKHSANA MILLER [facility] Start: 02-18-2023 ambulatory RUKHSANA MILLER [facility] Start: 02-11-2023 End: 02-12-2023 ambulatory [facility] Start: 02-08-2023 ambulatory ARJUN MINER [facility] Start: 01-25-2023 End: 01-25-2023 ambulatory GENNA HEATON Facility:[facility] Start: 01-21-2023 End: 01-22-[address] ARLETH ACHARYA . Facility:[facility] Start: 01-04-2023 End: 01-04-2023 Patient encounter procedure Diana HAWKINS [facility] Start: 10-10-[address] ARLETH ACHARYA . Facili ty:[facility] Start: 10-06-2022 End: 10-06-[address] ARLETH ACHARYA . Facility:[facility] Start: 09-30-2022 End: 10-01-[address] ARLETH ACHARYA . Facility:[facility] Start: 09-21-2022 End: 09-21-[address] ARLETH ACHARYA . Facility:[facility] Start: 08-27-2022 Encounter for preprocedural laboratory examination DR DIANA HAWKINS . [facility] Start: 08-27-2022 End: 08-27-[address] [...] Patient encounter procedure [facility]WKINS [facility] Start: 06-11-2022 ambulatory Kevin Nassaring Facility :[facility] Start: 06-09-2022 End: 06-11-2022 ambulatory Kevin Nassaring Facility:[facility] Start: 06-03-2022 End: 06-03-2022 Emergency department patient visit ARLETH ACHARYA Facility:[facility] Start: 06-01-2022 End: 06-01-2022 Evaluation and management of inpatient Kevin Geocing Facility:[facility] Start: 05-26-2022 End: 05-27-2022 ambulatory Kevin Nassaring Facility:[facility] Start: 05-26-2022 End: 05-27-2022 Encounter for preprocedural laboratory examination Kevin Lane Facility:[facility] Start: 05-16-2022 ambulatory NICK YOO Facility: Start: 05-01-2022 End: 05-02-2022 ambulatory NICK YOO Facility: Start: 04-29-2022 End: 04-29-2022 ambulatory ENEDINA IVEY . Facility: Start: 04-16-2022 End: 04-17-[address] ARLETH ACHARYA . Facility: Start: 04-07-2022 End: 04-08-2022 ambulatory Kevin Geocing Facility:[facility] Start: 03-24-2022 End: 03-25-2022 ambulatory REFERRED SELF Facility:[facility] Start: 02-12-2022 End: 02-13-2022 ambulatory Kevin Tanvirocing Facility:[facility] Start: 01-09-2022 End: 01-10-2022 ambulatory REFERRED SELF Facility:[facility] Start: 12-26-2021 End: 12-27-2021 ambulatory REFERRED SELF Facility:[facility] Start: 12-09-2021 End: 12-10-2021 ambulatory REFERRED SELF Facility:[facility] Start: 10-30-2021 End: 10-31-2021 ambulatory Kevni Nassaring Facility:[facility] Start: 10-11-2021 End: 11-11-2021 ambulatory Kevin Nassaring Facility:[facility] Start: 10-07-2021 End: 10-08-2021 ambulatory Kevin Gehling Facility:[facility] Start: 10-06-2021 End: 10-11-[address] Facility:[facility] Start: 08-12-2021 End: 08-13-2021 ambulatory REFERRED SELF Facility:[facility] Start: 10-09-2018 End: 10-09-2018 Emergency department patient visit [facility] Start: 06-13-2018 End: 06-13-2018 Emergency department patient visit [facility] Start: 02-25-2018 End: 02-26-2018 Emergency department patient visit [facility] Start: 2017 End: 12-31-2017 Ambulatory ZHANE W TAMEZ Facility:[facility] Start: 11-18-2017 End: 11-19-2017 Ambulatory ZHANE W TAMEZ Facility:[facility] Start: 10-28-2017 End: 10-29-2017 Ambulatory Rima Sparrow Facility:[facility] Start: 10-14-2017 End: 10-15-2017 Ambulatory ZHANE W TAMEZ Facility:[facility] Start: 09-16-2017 End: 09-17-2017 Ambulatory ZHANE W TAMEZ Facility:[facility] Start: 06-24-2017 Ambulatory ZHANE W TAMEZ Facility :[facility] Start: 04-20-2017 End: 04-21-2017 Ambulatory ZHANE W TAMEZ Facility:[facility] Procedures Date Procedure Procedure Detail Performing Clinician Start: 01-06-2024 X-ray of left ankle MD Arleth Acharya Work Phone: Start: 08-27-2022 Cystoscopic removal of ureteric stent Diana HAWKINS Start: 07-23-2022 Cystoscopic insertio n of ureteric stent Dianaatul HAWKINS Start: 10-07-[address] Comment on above: Performed By: #### 3 [id number] #### [address] Start: 10-09-2018 Ct abdomen & pelvis w/o contrast material ZHANE TAMEZ Start: 10-09-2018 Assay of amylase ZHANE N IELSEN Start: 10-09-2018 Assay of lipase ZHANE HOWEN Start: 10-09-2018 Blood count complete auto&auto difrntl [...] ZHANE MATHIS EN Start: 10-14-2017 BEDREST ZHANE DELFINA EN Start: 10-14-2017 Continuous pulse oximetry ZHANE TAMEZ Start: 10-14-2017 INITIATE OXYGEN THER APY PROTOCOL ZHANE TAMEZ Start: 10-14-2017 NEURO/VASCULAR CHECKS E AIDEN TAMEZ Start: 10-14-2017 NOTIFY PHYSICIAN (SPECIFY) ZHANE TAMEZ Start: 10-14-2017 NURSING COMMUNICATION E AIDEN TAMEZ Start: 10-14-2017 VITAL SIGNS ZHANE DELFINA EN Start: 10-14-2017 INITIATE OXYGEN THER APY PROTOCOL ZHANE TAMEZ Start: 10-14-2017 NURSING COMMUNICATION E AIDEN TAMEZ Start: 10-14-2017 BEDREST ZHANE DELFINA EN Start: 10-14-2017 NOTIFY PHYSICIAN (SPECIFY) ZHANE TAMEZ Start: 10-14-2017 VITAL SIGNS ZHANE DELFINA EN Start: 10-14-2017 DISCHARGE PATIENT ZHANE TAMEZ Start: 10-14-2017 INSERT PERIPHERAL IV ER CLOVER TAMEZ Appendectomy Diana HAWKINS Arthroplasty of knee Diana HAWKINS Arthroscopy of knee Diana HAWKINS Bypass of stomach Diana FLORENTINO GRIMES Cholecystectomy Diana CARLA RS Hysterectomy Diana HAWKINS Implantation of temp orary spinal cord stimulator Diana HAWKINS Tonsillectomy Diana HAWKINS Plan of Treatment Date Care Activity Detail Author Start: 05-28-2023 [facility] Iron binding capacit y [Mass/volume] in Serum or Plasma [facility] Iron saturation [Mas s Fraction] in Serum or Plasma [facility] Immunizations Immunization Date Immunization Notes Care Provider [facility] 10-08-2021 SARS-CoV-2 (COVID-19 ) mRNA BNT-162b2 vax Diana HAWKINS [facility] 01-30-2021 SARS-CoV-2 (COVID-19 ) mRNA BNT-162b2 vax Diana HAWKINS [facility] 01-09-2021 SARS-CoV-2 (COVID-19 ) mRNA BNT-162b2 vax Diana HAWKINS [facility] 07-11-2020 influenza virus vacc ine, unspecified formulation Diana HAWKINS [facility] 07-03-2020 influenza virus vacc ine, unspecified formulation Diana HAWKINS [facility] 07-18-2019 influenza virus vacc ine, unspecified formulation iDana HAWKINS [facility] 07-08-2018 influenza virus vacc ine, unspecified formulation Diana HAWKINS [facility] 01-01-2016 pneumococcal polysaccharide vaccine, 23 valent Diana ROSS [facility] 09-17-2013 influenza virus vacc ine, unspecified formulation Diana ROSS [facility] 07-10-2011 tetanus toxoid, redu demar diphtheria toxoid, and acellular pertussis vaccine, adsorbed Dianaatul HAWKINS [facility] Payers Date Payer Category Payer Unknown [id number] 2017 Self-pay 2017 Unknown 2012 Unknown [id number] 2012 Unknown [id number] 1981 Unknown [id number] 2.16.8 40.1.980673.3.579.2.173 1981 Unknown [id number] 2.16.8 40.1.081972.3.579.2.173 1981 Unknown [id number] 2.16.8 40.1.836508.3.579.2.173 1981 Unknown [id number] 2.16.8 40.1.514201.3.579.2.173 1981 Unknown [id number] 2.16.8 40.1.430394.3.579.2.647 1981 Unknown [id number] 2.16.8 40.1.988141.3.579.2.647 1981 Unknown [id number] 2.16.8 40.1.698073.3.579.2.647 1981 Unknown [id number] 2.16.8 40.1.019631.3.579.2.647 1981 Unknown [id number] 2.16.8 40.1.106265.3.579.2.647 1981 Unknown [id number] 2.16.8 40.1.652207.3.579.2.647 1981 Unknown [id number] 2.16.8 40.1.472421.3.579.2.647 1981 Unknown [id number] 2.16.8 40.1.473204.3.579.2.647 1981 Unknown [id number] 2.16.8 40.1.084617.3.579.2.647 1981 Unknown [id number] 2.16.8 40.1.807305.3.579.2.647 1981 Unknown [id number] 2.16.8 40.1.365398.3.579.2.647 1981 Unknown [id number] 2.16.8 40.1.361345.3.579.2.647 1981 Unknown [id number] 2.16.8 40.1.207977.3.579.2.647 1981 Unknown [id number] 2.16.8 40.1.788687.3.579.2.647 1981 Unknown [id number] 2.16.8 40.1.819797.3.579.2.647 1981 Unknown [id number] 2.16.8 40.1.251518.3.579.2.647 1981 Unknown [id number] 2.16.84 0.1.832169.3.579.2.593 1981 Unknown [id number] 2.16.84 0.1.852836.3.579.2.593 1981 Unknown [id number] 2.16.84 0.1.169137.3.579.2.593 1981 Unknown [id number] 2.16.84 0.1.275229.3.579.2.593 1981 Unknown [id number] 2.16.84 0.1.285219.3.579.2.593 1981 Unknown [id number] 2.16.84 0.1.316259.3.579.2.593 1981 Unknown [id number] 2.16.84 0.1.158172.3.579.2.593 1981 Unknown [id number] 2.16.84 0.1.098648.3.579.2.593 1981 Unknown [id number] 2.16.84 0.1.138719.3.579.2.593 1981 Unknown [id number] 2.16.84 0.1.587594.3.579.2.593 1981 Unknown [id number] 2.16.84 0.1.566719.3.579.2.593 1981 Unknown [id number] 2.16.84 0.1.030518.3.579.2.593 1981 Unknown [id number] 2.16.84 0.1.430662.3.579.2.593 1981 Unknown [id number] 2.16.84 0.1.368782.3.579.2.593 1981 Unknown [id number] 2.16.84 0.1.685632.3.579.2.593 1981 Unknown [id number] 2.16.84 0.1.685750.3.579.2.593 1981 Unknown [id number] 2.16.84 0.1.452725.3.579.2.593 1981 Unknown [id number] 2.16.84 0.1.415325.3.579.2.593 1981 Unknown [id number] 2.16.8 40.1.401212.3.579.2.1286 1981 Unknown [id number] 2.16.8 40.1.303905.3.579.2.1286 1981 Unknown [id number] 2.16.8 40.1.942488.3.579.2.1286 1981 Unknown [id number] 2.16.8 40.1.751174.3.579.2.1285 1981 Unknown [id number] 2.16.8 40.1.371984.3.579.2.1285 1981 Unknown [id number] 2.16.8 40.1.314045.3.579.2.1285 1981 Unknown [id number] 2.16.8 40.1.854557.3.579.2.1285 1981 Unknown [id number] 2.16.84 0.1.784921.3.579.2.1285 1981 Unknown [id number] 2.16.84 0.1.437736.3.579.2.1285 1981 Unknown [id number] 2.16.84 0.1.815445.3.579.2.1285 1981 Unknown [id number] 2.16.84 0.1.392412.3.579.2.128 1981 Unknown [id number] 2.16.8 40.1.542791.3.579.2.7 1981 Unknown [id number] 2.16.8 40.1.293889.3.579.2.727 1981 Unknown [id number] 2.16.8 40.1.606851.3.579.2.727 1981 Unknown [id number] 2.16.8 40.1.350728.3.579.2.727 1981 Unknown [id number] 2.16.8 40.1.503429.3.579.2.727 1959 Self-pay [id number] Unknown [id number] 2.16.8 40.1.776100.3.579.2.531 Social History Date Type Detail Facility Start: 06-29-2022 End: 05-28-2023 Tobacco smoking status Ex-smoker (finding) [facility] Sex Assigned At Female [facility] Start: 1980 Sex Assigned At Female F [facility] Tobacco smoking status Never [facility] Functional Status Date Assessment Result Facility 10-12-2023 Functional Status N/A [facility] 09-13-2023 Functional Status N/A [facility] 06-29-2022 Functional Status N/A [facility] Clinical Notes 06-16-2022 to 12-24-2023 Note Date & Type Note Facility 12-24-2023 [place] [address] Subjective Patient ID: Elvi Moore is a 42 y.o. female. Date:12/24/23 CC: Chief Complaint Patient presents with Follow-up Chief complaint : L knee 12/24/23 CC: Chief Complaint Patient presents with Follow-up Chief complaint : L knee Pain Assessment Pain Assessment: 0-10 Pain Score: 7 Pain Type: Chronic pain Pain Location: Knee Pain Orientation: Left Pain Descriptors: Aching, Sharp Pain Frequency: Constant/continuous Pain Onset: Ongoing Aggravating Factors: Walking, Stretching, Straightening, Standing, Squatting, Stairs, Kneeling, Exercise, Bending Pain Interventions: Medication (See MAR) Response to Interventions: Lewellen - effective, SCS effective 42 year old female here follow up for chronic left leg pain. Her pain is a 7/10 and is worse with standing and it is in her left knee. She states she has been working with [employer] to make adjustments to get more coverage on her knee cap, but not recently. She states every time they try to get coverage on her knee she gets overstimulated on other parts of her leg. She states she continues to take her norco 3 times a day but tend to wake up in the middle of the night due to her pain. She also continues to take her tizanidine which also helps. She denies adverse side effects. SUBJECTIVE: Elvi Moore is a 42 y.o. female who presents for follow up with a chief complaint of left knee pain. Since last visit patient reports pain is stable. Most recently patient underwent a xray of her stimulator to verify lead position which are still in place despite retention loop lost. 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 She reports dealing with kidney stones and has an ER visit that she was given a short rx of norco so she could use QID temporarily. She disclosed this right away and was unsure what to do. Past Medical History: Diagnosis Date Anemia Anxiety [...] Hallucinations Meperidine Rash Other reaction(s): Unknown Objective Ht 1.676 m (5' 6 ) Wt 68.9 kg (152 lb) BMI 24.53 kg/m??? General: well developed, well nourished, no acute distress Head: normocephalic and atraumatic Eyes: anicteric sclera, normal eye movements Ears: normal hearing Chest/Lungs: quiet, easy, unlabored breathing. Heart: no clubbing, cyanosis, edema Skin: intact without suspicious lesions or rashes Neuropsych: alert and cooperative; normal mood/affect articulates well Gait: normal Assessment/Plan Diagnosis Plan 1. Complex regional pain syndrome type 1 of left lower extremity HYDROcodone-acetaminophen (Lewellen) 5-325 mg tablet gabapentin (Neurontin) 300 mg capsule 2. Other chronic postprocedural pain HYDROcodone-acetaminophen (Lewellen) 5-325 mg tablet gabapentin (Neurontin) 300 mg capsule Discussed chronic pain, medication use, treatment goals. Medication risk and benefits discussed. The Spine Diagram and Test results were used to explain the condition. PLAN: 1. Continue Lewellen 5/325mg TID PRN for severe pain 8-10 -gabapentin 300mg at night for one week can titrate up to 300mg BID or 600mg at night. 2. MAPS/OARRS pulled and reviewed. 3. Lumbar xrays reviewed with patient and reassured of proper lead placement and no migration issues. 4. Continue optimization of neurostimulation 5. RTC in 8 weeks ok to fill when needed. All questions are answered, and the patient [...] a valid chronic pain condition which requires treatment with opioids. The patient has signed a Controlled Substance Agreement (CSA) with our office and agrees to compliance monit (more content not included)... [facility] 10-28-2023 [place] [address] Subjective Patient ID: Elvi Moore is a 42 y.o. female. Date:10/28/23 CC: Chief Complaint Patient presents with Knee Pain left 10/28/23 CC: Chief Complaint Patient presents with Knee Pain left Pain Assessment Pain Assessment: 0-10 Pain Score: 6 Pain Type: Chronic pain Pain Location: Knee Pain Descriptors: Sharp, Aching, Other (Comment) (restless) Pain Frequency: Constant/continuous Pain Onset: Ongoing Clinical Progression: Gradually worsening Aggravating Factors: Other (Comment) (any movement) Pain Interventions: Medication (See MAR), Home medication 42 year old female here follow up for chronic left leg pain. Her pain is a 6/10 and is worse with standing. She states she recently switched jobs and is do more standing then she has before when she was working on the [employer]. She states she has been working with [employer] to make adjustments to get more coverage on her knee cap. She states she continues to take her norco but she feels like the middle of the day is the worse because her medication usually last 8 hours and then she is in pain. She also continues to take her tizanidine which also helps. She denies adverse side effects. SUBJECTIVE: Elvi Moore is a 42 y.o. female who presents for follow up with a chief complaint of left knee pain. Since last visit patient reports pain is stable. Most recently patient underwent a xray of her stimulator to verify lead position which are still in place despite retention loop lost. 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 She reports dealing with kidney stones and has an ER visit that she was given a short rx of norco so she could use QID temporarily. She disclosed this right away and was unsure what to do. Past Medical History: Diagnosis Date Anemia Anxiety [...] Meperidine Rash Other reaction(s): Unknown Objective BP 112/82 Pulse 87 Ht 1.676 m (5' 6 ) Wt 68.9 kg (152 lb) BMI 24.53 kg/m??? General: well developed, well nourished, no acute distress Head: normocephalic and atraumatic Eyes: anicteric sclera, normal eye movements Ears: normal hearing Chest/Lungs: quiet, easy, unlabored breathing. Heart: no clubbing, cyanosis, edema Skin: intact without suspicious lesions or rashes Neuropsych: alert and cooperative; normal mood/affect articulates well Gait: normal Assessment/Plan Diagnosis Plan 1. Complex regional pain syndrome type 1 of left lower extremity HYDROcodone-acetaminophen (Lewellen) 5-325 mg tablet 2. Other chronic postprocedural pain HYDROcodone-acetaminophen (Lewellen) 5-325 mg tablet Discussed chronic pain, medication use, treatment goals. Medication risk and benefits discussed. The Spine Diagram and Test results were used to explain the condition. PLAN: 1. Increase Lewellen 5/325mg TID PRN for severe pain 8-10 2. MAPS/OARRS pulled and reviewed. 3. Lumbar xrays reviewed with patient and reassured of proper lead placement and no migration issues. 4. Continue optimization of neurostimulation 5. RTC in 8 weeks ok to fill when needed. All questions are answered, and the patient [...] a valid chronic pain condition which requires treatment with opioids. The patient has signed a Controlled Substance Agreement (CSA) with our office and agrees to compliance monitoring protocol, which includes periodic urine/saliva drug screens, pill counts, and OARRS review. The patient understands the risk & benefits of opioid medications and agrees to not receive opioids from another provider. Medication (more content not included)... [facility] 10-12-2023 Note [id number] [facility] 10-12-2023 Hospital Discharge instructions Patient Education 10/12/2023 10:36:51 EU - Cystoscopy with Stent Removal Discharge Instructions (CUSTOM) Cystoscopy with Stent Removal Voiding after the procedure: there may be some pain, burning, urgency, frequency and blood tinged urine following the procedure. These symptoms usually resolve within 2-5 days. Drink the amount of fluid it takes to keep the urine pink to yellow or clear in color. Drinking enough water and fluids will help to ease any discomfort after your procedure. If you are having problems that seem out of the ordinary, please call. If unable to contact your physician and you feel it is an emergency, go to the nearest emergency room or call 911 Diet you may resume your normal diet. Activity you may resume your normal activities Call if you have a fever over 100 degrees. Follow Up Care 10/07/2023 08:10:49 With:Diana HAWKINS Address: [facility] [address] , [place] [address]- Business (1) When:01/11/2024 10:36:33 Comments:With a stone metabolic workup [facility] 10-12-2023 Note Custom Cystoscopy with Stent Removal ? Voiding after the procedure: there may be some pain, burning, urgency, frequency and blood tinged urine following the procedure. These symptoms usually resolve within 2-5 days. Drink the amount of fluid it takes to keep the urine pink to yellow or clear in color. Drinking enough water and fluids will help to ease any discomfort after your procedure. ? If you are having problems that seem out of the ordinary, please call. ? If unable to contact your physician and you feel it is an emergency, go to the nearest emergency room or call 911 ? Diet ? you may resume your normal diet. ? Activity ? you may resume your normal activities ? Call if you have a fever over 100 degrees. [facility] 09-13-2023 Note Chief Complaint Re Referral *Kidney [...] from Dr Acharya due to kidney stone. [facility] ER 08/11/23 KUB & CT 08/11/23 Dr Acharya prescribed Promethazine & Cipro 500mg BID [id number]. [facility] ER 09/08/23 CC: Lt Flank Pain BUN 14 Crea 0.66 eGFR >90 CT ap w/o - small stone Lt Kidney 4-5mm Pt had [facility] in January, July & August. They [...] Acharya prescribed Promethazine and Cipro 500mg bid [id number]. Reports Dr. Acharya also started her on [...] ongoing for 1month (more content not included)... [facility] Comment on above: Result Comment: [...] including vitamins, herbs, eye drops, creams, and lgen-rdl-yjqlpxr medicines. Any problems you or family members [...] provider tells you to take them. Taking yrrg-mim-cupwjoo medicines, vitamins, herbs, and supplements. Tests You [...] Follow these instructions at home: Medicines Take akgf-jfh-uctfbmf and prescription medicines only as told by [...] provider. Document Revised: 06/10/2022 Document Reviewed: 05/09/2021 [employer] Patient Education 2022 [employer]. 09/13/2023 12:55:19 Hematuria, Adult Hematuria, Adult Hematuria [...] Follow these instructions at home: Medicines Take xeao-suo-pkwzmmr and prescription medicines only as told by [...] or the blood stops without treatment. Take flcv-ves-lgqoljt and prescription medicines only as told by your health care provider. Drink enough fluid to keep your urine pale yellow. This information is not intended to replace advice given to you by your health care provider. Make sure you discuss any questions you have with your health care provider. Document Revised: 05/28/2021 Document Reviewed: 05/28/2021 [employer] Patient Education 2022 [employer]. Follow Up Care 08/20/2023 11:43:21 With:ROSS GENTILE, Diana Goss, URL Address: [facility] [address] , [place] [address]- [phone] When: Unknown Comments:sched cysto [facility] [place] 09-13-2023 Note Urology Cystoscopy Cystoscopy is a [...] including vitamins, herbs, eye drops, creams, and osos-hkv-faulecn medicines. ? Any problems you or family [...] tells you to take them. ? Taking kjmo-lzx-rgvwkth medicines, vitamins, herbs, and supplements. Tests You [...] these instructions at home: Medicines ? Take fewq-fbx-ocqqgsn and prescription medicines only as told by [...] the department th (more content not included)... [facility] 08-19-2023 Note Pain Medicine Medical [address] [address] Subjective Patient ID: Elvi Moore is a [...] retention loop lost. 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 Do not start before August 20, 2023. - HYDROcodone-acetaminophen (Lewellen) 5-325 mg tablet; Take 1 tablet by mouth if needed in the morning and at bedtime for severe pain (8-10 pain score). Do not start before September 19, 2023. Other chronic postprocedural pain - HYDROcodone-acetaminophen (Lewellen) 5-325 mg tablet; Take 1 tablet by mouth if needed in the morning and at bedtime for severe pain (8-10 pain score). Do not start before August 20, 2023. - HYDROcodone-acetaminophen (Lewellen) 5-325 mg tablet; Take 1 tablet by [...] to explain the condition. PLAN: 1. Refill Lewellen 5/325mg BID PRN. Okay to fill on fill date 2. Patient instructed to contact us should she receive or prior to filling any additional opioid medications. 3. MAPS/OARRS pulled and reviewed. 4. Lumbar xrays reviewed with patient and reassured of proper lead placement and no migration issues. Continue optimization of neurostimulation 5. RTC in 6-[address] JUDGE for med check All questions are answered, [...] condition which requires (more content not included)... [facility] 07-20-2023 [place] [address] Subjective Patient ID: Elvi Moore is a [...] worse. At her last appointment on 06/01/2023, [employer] rep was at bed side and changed her settings. However, the patient feels this made it worse and changed her stimulator back to her original settings. Of note, patient sent a message on 07/07/2023 saying the SCS took away the martinez pain, but that she still has significant knee pain. We provided her with the contact number for the [employer] Rep. Patient has repeatedly called the number we provided, but has still not been able to get a hold of the [employer] rep. Pain Medications: Lewellen 5-325 BID. Pain relief lasts around 6 [...] from the pro (more content not included)... [facility] 06-01-2023 Note Attestation signed by Arjun Miner MD at 06/03/2023 12:16 PM I saw and evaluated the patient, participating in the holloway portions of the service. I reviewed the resident???s note. I agree with the resident???s findings and plan. Arjun Miner [place] [address] Subjective Patient ID: Elvi Moore is a [...] working well. PLAN: 1. DRG stimulator implanted ([employer]): rep at bed side, changing settings to further optimize pain control 2. Slowly titrated down on requirment of norco 3. Medication: continue current script of norco 5/325. 4. Continue lumbar and core strengthening 5. RTC 4 [facility] 05-04-2023 Note Attestation signed by Arjun Miner MD at 05/04/2023 11:37 AM I personally saw and examined the patient on the same date of service as resident/fellow Dr Rdz. I discussed the findings and therapeutic plan with the resident/fellow Dr Rdz. I agree with the documentation, except for [...] type 1 of left lower extremity HYDROcodone-acetaminophen (Lewellen) 5-325 mg tablet 2. History of total knee arthroplasty, left 3. Morbid obesity (CMS/HCC) 4. Other chronic postprocedural pain 5. Complex regional pain syndrome type 1 of left lower extremity HYDROcodone-acetaminophen (Lewellen) 5-325 mg tablet chronic, uncontrolled, awaiting DRG stimulator implant 6. Presence of neurostimulator Pain Medicine Medical [address] [address] Subjective Patient ID: Elvi Moore is a [...] DRG. She is currently spacing out her Lewellen 5/325 every 6 hours compared to every 4 hours due to the incisional pain. Discussed chronic pain, medication use, treatment goals. Medication risk and benefits discussed. The Spine Diagram and Test results were used to explain the condition. PLAN: 1. Remove sutures today of incision site. 2. Intervention: DRG stimulator implanted ([employer]) , have patient [facility] to [facility] for any further 3. Medication: continue current script of norco 5/325. Patient scheduled for a refill 05/19/2023. Patient was instructed to take more of her norco on the current script 4. Continue lumbar and core strengthening 5. RTC [facility] 04-28-2023 Note No concerns as per c all back guidelines [facility] 04-28-2023 Note Patient: Elvi tilley Procedure Summary Date: 04/28/23 Room / Location: [facility] OPERATING ROOM 04 / [facility] Operating Room Anesthesia Start: 0850 Anesthesia [...] per anesthesia protocol. No notable events documented. [facility] 04-28-2023 Note Patient: Elvi tilley Procedure Summary Date: 04/28/23 Room / Location: [facility] OPERATING ROOM 04 / [facility] Operating Room Anesthesia Start: 0850 Anesthesia [...] observation Transport: uneventful Patient condition is: stable [facility] 04-28-2023 Note Airway Date/Time: 04/28/2023 8:58 AM Urgency: elective Airway not difficult General Information and Staff Patient location during procedure: OR Anesthesiologist: Bjorn Charles MD Resident/OPERATIONS INSPECTOR/CAA: RL Arreguin Performed: other anesthesia staff Learner [...] by AA student; Dentures to Circ RN [facility] 04-28-2023 Note Patient: Elvi tilley Procedure Information Date/Time: 04/28/23 0930 Procedure: INSERTION, PULSE GENERATOR, SPINAL CORD STIMULATOR - C-Arm, Jcakson REP NOTIFIED 04/21 JK Location: [facility] OPERATING ROOM 04 / [facility] Operating Room Surgeons: Arjun Miner MD [...] CAA and medical student. Additional Equipment Requests [facility] 04-23-2023 Note IF YOU ARE GOING [place] AFTER YOUR SURGERY OR PROCEDURE, FOR YOUR SAFETY, YOUR SURGERY WILL BE CANCELLED IF BOTH OF THE FOLLOWING ARE NOT AVAILABLE: An adult local city driver over the age of 18, that [...] lenses. Do not wear perfume, make-up, nail nauruan, or lotions on the day of your [...] need to make any changes, please call [phone]. Notify your surgeon if you develop any illness such as a cold, cough, fever, sore throat or vomiting between now and your surgery. Thank you for entrusting us with your care. [facility] Surgical Services Team [facility] 03-17-2023 [place] [address] Subjective Patient ID: Elvi Moore is a [...] old female here for follow up after [facility] evaluation on 12/29 for SCS and is determined a good candidate for SCS trial. She will have DRG trial with [employer]. She states she is mainly concerned about [...] the limited duration of benefit. Currently taking Lewellen 5-325 mg daily which brings her pain [...] joint movement) Y (more content not included)... [facility] 03-05-2023 Note Subjective Patient ID: Elvi Moore is a 42 y.o. female. Patient called requesting refill of Lewellen. She underwent successful SCS-DRG trial and awaiting permanent implant [employer]. PDMP reviewed and last fill on 01/31/23. Will provide 2 week rx and further refill will require office visit. Assessment/Plan Diagnoses and all orders for this visit: Complex regional pain syndrome type 1 of left lower extremity [facility] 02-18-2023 [place] [address] Subjective Patient ID: Elvi Moore is a [...] old female here for follow up after [facility] evaluation on 12/29 for SCS and is determined a good candidate for SCS trial. She will have DRG trial with [employer]. She states she is mainly concerned about [...] the limited duration of benefit. Currently taking Lewellen 5-325 mg daily which brings her pain [...] no other diagn (more content not included)... 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 cyanocobalamin, vitamin B-12, 1,000 mcg/mL kit Inject as directed every 30 (thirty) days. diclofenac (Voltaren) 1 % topical gel apply 4 grams to affected area ferrous sulfate 325 (65 Fe) MG tablet every 12 (twelve) hours. HYDROcodone-acetaminophen (Lewellen) 5-325 mg tablet Take 1 tablet by [...] - normal exam Plan ASA 2 Mild [facility] 01-04-2023 Hospital Discharge instructions Patient Education [...] include: ?Spinach. ?Rhubarb. ?Beets. ?Potato chips and liberian fries. ?Nuts. If you regularly take a diuretic medicine, make sure to eat at least 1 2 fruits or vegetables high in potassium each day. These include: ?Avocado. ?Banana. ?Davidson, prune, carrot, or tomato juice. ?Baked potato. [...] Casseroles. Pizza. Lasagna. Frozen meals. Potato chips. Georgian fries. Summary You can reduce your risk [...] 01/22/2012 Document Revised: 01/17/2020 Document Reviewed: 09/07/2017 [employer] Patient Education 2019 [employer]. Follow Up Care 10/29/2022 14:23:18 With:ROSS GENTILE, Diana Goss, RASHIL Address: [facility] [address], [place] [address]- When: Unknown [facility] 06-29-2022 Evaluation + Plan note Diagnostic Tests [facility] ([facility]) 06/29/22 [facility] 06-29-2022 Hospital Discharge instructions Patient Education 06/29/2022 [...] Follow these instructions at home: Medicines Take kfqm-gqr-uxqbbst and prescription medicines only as told by [...] or the blood stops without treatment. Take dxlw-hpk-nvogrjm and prescription medicines only as told by your health care provider. Drink enough fluid to keep your urine clear or pale yellow. This information is not intended to replace advice given to you by your health care provider. Make sure you discuss any questions you have with your health care provider. Document Released: 09/27/2006 Document Revised: 02/21/2020 Document Reviewed: 10/30/2017 [employer] Patient Education 2020 [employer]. Follow Up Care 05/06/2022 15:50:29 With:ROSS GENTILE, Diana Goss, URL Address: [facility] [address] , [place] [address]- [phone] When: Unknown [facility] [place] 06-16-2022 Note MR#: [id number] I [facility] Pt. Name: Elvi Moore Admitted: 06/01/2022 [...] Cavazos MD Date Trans: 06/16/2022 02:27 P/taylor [id number] cc: Arleth Acharya M.D. [address] [place] [id number] [facility] Evaluation + Plan note Future Appointments Appointment Date:01/11/2023 01:45:00 PM Scheduled Provider:Diana HAWKINS MD Location:[facility] Appointment Type:URO Office Visit [facility] Evaluation + Plan note Future Appointments Appointment Date:02/07/2024 10:15:00 AM Scheduled Provider:Diana HAWKINS MD Location:[facility] Appointment Type:URO Office Visit [facility] Evaluation note No assessment inform ation available [facility] Work Phone: Evaluation note Diagnosis Onset Date Left ankle sprain noneactive [facility] Work Phone: Hospital course Narrative No data available for this section [facility] progress note No data available for this section [facility] Summary Purpose Family History No Family History Records Found Relationship Condition Age at Onset Recorded Date/T norman sister Malignant neoplasm of breast Unknown Not Specified Neoplasm of brain Unknown Advance Directives No Advanced Directives Records Found Advance Directive Response Recorded Date/ Time Advance Directives No June 5:02pm Chief Complaint and Reason for Visit Chief Complaint microcytic anemia Chief Complaint left leg pain w inju ry W19.XXXA - Unspecified fall, initial encounter Reason for Visit Left ankle sprain Additional Source Comments INFORMATION SOURCE (unrecogn ized section and content) DATE CREATED AUTHOR 03/31/2018 [facility] DATE CREATED AUTHOR AUTHOR'S ORGANIZ ATION 10/11/2018 [facility] DATE CREATED AUTHOR AUTHOR'S ORGANIZ ATION 06/23/2022 [facility] DATE CREATED AUTHOR AUTHOR'S ORGANIZ ATION 01/28/2023 [facility] DATE CREATED AUTHOR AUTHOR'S ORGANIZ ATION 07/31/2023 [facility] DATE CREATED AUTHOR AUTHOR'S ORGANIZ ATION 02/07/2024 [facility] DATE CREATED AUTHOR AUTHOR'S ORGANIZ ATION 02/19/2024 [facility] DATE CREATED AUTHOR AUTHOR'S ORGANIZ ATION 02/24/2024 [facility] Care Team (unrecognized sect ion and content) Team Status: Active Member Role Status Dates Arleth Acharya MD Primary Care Provider Active Team Status: Inactive Member Role Status Dates Arelth Acharya MD Primary Care Provider Active Start: January 06, 2024 End: January 06, 2024 Rianna Antonio APRN Attending Provider Active Start: January 06, 2024 End: January 06, 2024 Team Status: Active Member Role Status Dates Arleth Acharya MD Primary Care Provider, Referring Pr sebastian Active JanyChristine Calderón APRN Attending Provider Acti ve Goals [...] BE BASED ON THE PRIMARY CLINICAL RECORDS. [employer] provides no warranty or guarantee of the accuracy or completeness of information in this document.
--- NOTE | 2024-03-03 11:54 | XR_ITS ---
The [address] [address] Patient Name: KRISTINE MADDEN MRN: [id number] date: 1980 Sex: F Assigned Patient Location: LAB Current Patient Location: LAB Accession/Order Number: [id number] Exam Date: 03/03/2024 11:57 Report Date: 03/03/2024 12:13 At the request of: ARLETH ACHARYA Procedure: XR abdomen 1V EXAMINATION: XR abdomen 1V HISTORY: Kidney stone N20.0 EXAMINATION: XR abdomen 1V HISTORY: Kidney stone N20.0 COMPARISON: No relevant comparison available. FINDINGS: KIDNEY/URETER - RIGHT: Suspect small 4 mm stone within right kidney. KIDNEY/URETER - LEFT: No visible renal or ureteral calcifications. PELVIS: No visible ureteral stones. Stable calcifications within left pelvis favor phleboliths. BOWEL: No abnormal dilation or obstruction. Large amount of stool throughout the colon. BONES: No acute abnormality. OTHER: Stable neurostimulator pack projecting over right lower abdomen. Numerous surgical clips along with left upper quadrant bowel sutures. XR/XR abdomen 1V IMPRESSION: 1. Suspect right nephrolithiasis. Evaluation is limited by large amount of dense overlying bowel content. Electronically authenticated by: RUSSELL DUFF Date: 03/03/2024 12:13
[2024-03-03 11:57] LABS: Basophils Percent Auto 0.4 % (0.2-2.0); Eosinophils Percent Auto 0.9 % (0.9-7.0); Hematocrit 39.9 % (36.0-48.0); Hemoglobin 12.5 g/dL (12.0-16.0); Lymphocytes Absolute Auto 1.7 10^3/uL (1.2-3.8); Lymphocytes Percent Auto 36.1 % (20.5-60.0); Mean Corpuscular HGB Conc 31.3 g/dL (29.9-35.2); Mean Corpuscular Hemoglobin 27.9 pg (26.7-34.0); Mean Corpuscular Volume 89.1 fL (81.0-99.0); Mean Platelet Volume 9.2 fL (9.5-13.5); Monocytes Absolute Auto 0.3 10^3/uL (0.3-0.8); Monocytes Percent Auto 7.3 % (1.7-12.0); Neutrophils Absolute Auto 2.6 10^3/uL (1.4-6.5); Neutrophils Percent Auto 55.3 % (43.0-75.0); Platelet Count 196 10^3/uL (150-450); Red Blood Count 4.48 10^6/uL (4.20-5.40); Red Cell Distribution Width 13.2 % (11.0-15.0); White Blood Count 4.7 10^3/uL (4.0-11.0)
[2024-03-03 12:10] LABS: INR 0.97; Partial Thromboplastin Time 30.3 sec (22.3-36.2); Prothrombin Time 10.3 sec (9.0-11.6)
[2024-03-03 14:17] LABS: Alanine Aminotransferase 21 U/L (14-59); Albumin Globulin Ratio 1.1; Albumin Level 3.8 g/dL (3.4-5.0); Alkaline Phosphatase 104 U/L (46-116); Anion Gap 13.1; Aspartate Amino Transferase 17 U/L (15-37); BUN Creatinine Ratio 13.6; Bilirubin Total 0.4 mg/dL (0.2-1.0); Calcium 9.3 mg/dL (8.5-10.1); Carbon Dioxide 29.9 mmol/L (21.0-32.0); Chloride 100 mmol/L (98-107); Estimated GFR (African America >60 (>=60); Estimated GFR (Non-African Ame >60 (>=60); Globulin 3.5 g/dL; Glucose 93 mg/dL (74-106); Sodium 139 mmol/L (136-145); Total Protein 7.3 g/dL (6.4-8.2)
== END 2024-03-03 11:44 | disposition home or self-care (01) ==
LOC: LAB 11:44
PROVIDERS: PCP Family Medicine; Visit Provider Family Medicine
DX: N20.0 Calculus of kidney (principal)
CPT/HCPCS: 36415; 74018; 80053; 85025; 85610; 85730

== ENCOUNTER 2024-03-13 09:14 | Outpatient (OUT) | payer OTHER, SELFPAY ==
--- NOTE | 2024-03-13 09:17 | US_ITS ---
The [address] [address] Patient Name: KRISTINE MADDEN MRN: [id number] date: 1980 Sex: F Assigned Patient Location: US Current Patient Location: US Accession/Order Number: [id number] Exam Date: 03/13/2024 09:36 Report Date: 03/13/2024 14:03 At the request of: ARLETH ACHARYA Procedure: US soft tissue head and neck EXAM: US soft tissue head and neck HISTORY: Neck mass COMPARISON: None. TECHNIQUE: Percutaneous ultrasound evaluation inferior to right ear. FINDINGS: Corresponding to patient's palpable lump is a lobular hypoechoic 1.3 x 1.1 x 0.9 cm mass with small amount of internal blood flow demonstrated on color Doppler. US/US soft tissue head and neck IMPRESSION: 1. Nonspecific mass corresponding to patient's palpable lump, within versus adjacent the parotid gland. Ultrasound-guided tissue sampling should be considered. Electronically authenticated by: RUSSELL DUFF Date: 03/13/2024 14:03
== END 2024-03-13 09:15 | disposition home or self-care (01) ==
LOC: US 09:14
PROVIDERS: PCP Family Medicine; Visit Provider Family Medicine
DX: N20.0 Calculus of kidney (principal); R22.1 Localized swelling, mass and lump, neck
CPT/HCPCS: 76536

== ENCOUNTER 2024-03-15 12:08 | Outpatient (RCR) | payer OTHER, SELFPAY ==
[2024-03-15 12:00] VITALS: BP 128/91; PULSE 71; TEMP 36.6; O2SAT 100
[2024-03-15] MEDS: 0.9 % SODIUM CHLORIDE 2,000 ML 999 ML IV (12:09)
--- NOTE | 2024-03-15 12:14 | PC.NURSE ---
1200: Pt. to [facility] amb for IV hydration. Seated in recliner. VSS. IV initiated to right ac, see documentation. Pt. tolerated without c/o. Given warm blanket and pillow. Declines snack or beverage. IV N.S. initiated at this time.
--- NOTE | 2024-03-15 12:37 | PC.NURSE ---
1237: Pt. without c/o or needs. Given bottled water. IV site clear.
--- NOTE | 2024-03-15 14:36 | PC.NURSE ---
1410: IV fluids infused without difficulty. Pt. relays fatigue. Denies other c/o. IV d/c'd pressure to site. D/c'd amb to home.
== END 2024-03-15 14:36 | disposition home or self-care (01) ==
LOC: INF 12:08
PROVIDERS: PCP Family Medicine; Visit Provider Family Medicine
DX: E86.0 Dehydration (principal)
CPT/HCPCS: 96360; 96361

== ENCOUNTER 2024-03-22 09:03 | Day surgery (SDC) | payer OTHER, SELFPAY ==
--- NOTE | 2024-03-22 09:08 | US_ITS ---
[address] [address] Patient Name: KRISTINE MADDEN MRN: [id number] date: 1980 Sex: F Assigned Patient Location: US Current Patient Location: Accession/Order Number: [id number] Exam Date: 03/22/2024 09:10 Report Date: 03/22/2024 10:51 At the request of: ARLETH ACHARYA Procedure: US biopsy FNA EXAMINATION: US biopsy FNA HISTORY: Neck Mass COMPARISON: No relevant comparison available. TECHNIQUE: After obtaining informed consent, an ultrasound-guided biopsy was performed in the usual sterile manner. FINDINGS: IMAGING: Ultrasound BIOPSY NEEDLE: 2 inch 25-gauge SPECIMEN TYPE, #, LOCATION: 4 fine-needle aspirates, 1.1 cm right carotid mass MEDICATION: 3 cc 1% buffered lidocaine COMPLICATIONS: None. LABORATORY: OTHER: Negative. US/US biopsy FNA IMPRESSION: Uneventful ultrasound guided biopsy. The patient was instructed to obtain follow up care and biopsy results from the referring physician. Electronically authenticated by: CARISSA JOHN Date: 03/22/2024 10:51
[2024-03-22 09:10] VITALS: BP 129/97; PULSE 82; O2SAT 100
[2024-03-22] MEDS: LIDOCAINE HCL 10 ML, SODIUM BICARBONATE 1 MEQ INJ (09:45)
--- NOTE | 2024-03-22 10:23 | SUR.PREOP ---
03/17/24 Pt instructed on procedure, date, time, and prep.
== END 2024-03-22 10:05 | disposition home or self-care (01) ==
LOC: US 09:03
PROVIDERS: Radiology Diagnostic Radiology; PCP Family Medicine; Visit Provider Family Medicine
DX: R22.1 Localized swelling, mass and lump, neck (principal)
CPT/HCPCS: 10005

== ENCOUNTER 2024-03-22 16:01 | Inpatient (IN) | payer OTHER, SELFPAY ==
[2024-03-22 16:07] VITALS: BP 164/104; PULSE 90; TEMP 36.8; O2SAT 97; BMI 24.9
--- NOTE | 2024-03-22 16:27 | CT_ITS ---
[address] [address] Patient Name: KRISTINE MADDEN MRN: [id number] date: 1980 Sex: F Assigned Patient Location: ER Current Patient Location: [facility] Accession/Order Number: [id number] Exam Date: 03/22/2024 16:35 Report Date: 03/22/2024 17:22 At the request of: GAL CALLAHAN Procedure: CT abdomen pelvis wo con EXAM: CT abdomen pelvis wo con; [id number] REASON FOR EXAM: Right flank pain TECHNIQUE: Helical CT images of the abdomen and pelvis were obtained without IV contrast. Multiplanar reformats were generated at the scanner. Dose reduction technique used: Automated exposure control and/or adjustment of the mA and/or kV according to patient size and/or use of iterative reconstruction technique. COMPARISON: CT abdomen/pelvis 10/05/2023. FINDINGS: Note: Compared with a contrast-enhanced CT exam, noncontrast images are relatively insensitive for detection of solid organ and vascular abnormalities. Visualized Chest: No pleural effusion or any significant pulmonary findings. Abdomen: Liver: Within normal limits. Gallbladder: Resected. Bile Ducts: No significant biliary ductal dilatation. Pancreas: No ductal dilatation or inflammatory changes. Spleen: No splenomegaly. Adrenals: No nodules. Kidneys: -No stones or hydronephrosis. Vascular: No aortic aneurysm. Lymph Nodes: No adenopathy. Abdominal Wall: No hernia or mass. Spinal nerve stimulator is present. Pelvis: No mass or adenopathy. Bowel/Peritoneal Cavity/Mesentery: -Status post Josefa-en-Y gastric bypass. -Moderate colonic stool burden. -No bowel obstruction or significant ileus. -No acute inflammatory changes. -No free air or free fluid. Musculoskeletal: No acute fracture or suspicious osseous lesion. CT/CT abdomen pelvis wo con IMPRESSION: 1. No kidney stones, hydronephrosis, or acute intra-abdominal abnormality to account for right flank pain. 2. Moderate colonic stool burden. Electronically authenticated by: DARCI OBREGON Date: 03/22/2024 17:22
--- NOTE | 2024-03-22 16:28 | ED_ITS ---
HPI HPI - General Adult General Chief complaint: Abdominal Pain Stated complaint: Flank PAIN Time Seen by Provider: 03/22/24 16:24 Source: patient Mode of arrival: walk-in Limitations: no limitations History of Present Illness HPI narrative: Patient is a 43-year-old female well-known to this emergency department who presents to the ER for several week history of pain in the right flank. Patient has a history of kidney stones although she states she has never had pain in the right flank previously. She denies fevers. She reports nausea and vomiting. She is tearful and states that she came to the emergency department because Dr. Ennis told her to come to the ER to be admitted to control her symptoms. She denies abdominal pain. She has had urinary urgency. No hematuria. She has had a previous hysterectomy, no concern for . Related Data Home Medications ?Medication ?Instructions ?Recorded ?Confirmed amitriptyline 50 mg tablet 100 mg PO BEDTIME 08/11/23 03/22/24 conjugated estrogens 0.625 mg/gram 0.625 mg vaginal PRN 08/11/23 10/02/23 vaginal cream (Premarin) cyanocobalamin (vitamin B-12) 1,000 mcg IM .monthly 08/11/23 03/22/24 1,000 mcg/mL injection solution hydrocodone 5 mg-acetaminophen 325 1 tab PO Q8H PRN pain 08/11/23 03/22/24 mg tablet tamsulosin 0.4 mg capsule (Flomax) 0.4 mg PO DAILY 08/11/23 03/22/24 tizanidine 4 mg tablet 8 mg PO BEDTIME 08/11/23 03/22/24 pantoprazole 40 mg tablet,delayed 80 mg PO BID 09/13/23 03/22/24 release calcium carbonate 1,200 mg PO DAILY 03/17/24 03/22/24 ferrous sulfate 325 mg (65 mg 325 mg PO DAILY 03/17/24 03/17/24 iron) tablet (FeroSul) gabapentin 300 mg capsule 300 mg PO DAILY 03/17/24 03/22/24 multivitamin 1 tab PO DAILY 03/17/24 03/22/24 sucralfate 1 gram tablet (Carafate) 1 g PO .TID WM 03/17/24 03/22/24 topiramate 50 mg tablet 50 mg PO DAILY 03/17/24 03/22/24 amitriptyline 100 mg tablet 100 mg PO DAILY 03/22/24 03/22/24 promethazine 25 mg tablet mg 03/22/24 Previous Rx's ?Medication ?Instructions ?Recorded oxybutynin chloride 5 mg tablet 5 mg PO Q12H PRN bladder spasms 3 10/01/23 days #14 tabs oxycodone-acetaminophen 5 mg-325 1 tab PO Q4H PRN pain #7 tabs 10/01/23 mg tablet (Percocet) phenazopyridine 200 mg tablet 200 mg PO Q8H 2 days #6 tabs 10/01/23 (Pyridium) Allergies Allergy/AdvReac Type Severity Reaction Status Date / Time ketorolac [From Toradol] Allergy Intermediate Rash Verified 03/22/24 10:19 meperidine [From Demerol] Allergy Intermediate Rash Verified 03/22/24 10:19 prochlorperazine Allergy Intermediate hallucinati Verified 03/22/24 10:19 [From Compazine] ons Opioid HPI Opioid Management Most Recent Opioid Data: Last Pain Scale 8 03/22/24 16:43 Last MAR Pain Assessment 03/22/24 16:43 Review of Systems ROS Constitutional Denies: fever or chills Ears, nose, mouth, and throat Denies: throat pain or nasal congestion Cardiovascular Denies: chest pain Respiratory Denies: shortness of breath Gastrointestinal Reports: nausea and vomiting; Denies: abdominal pain or diarrhea Genitourinary Reports: urinary frequency and urinary urgency; Denies: painful urination Musculoskeletal Reports: back pain; Denies: neck pain Integumentary/Breast Denies: rash Neurological Denies: headache Endocrine Denies: excessive urination Hematologic/Lymphatic Denies: easy bruising or easy bleeding [facility] Medical History (Updated 03/22/24 @ 17:02 by ADITI Chapa) Mass of right parotid gland ?K11.8 - Other diseases of salivary glands (ICD-10) Migraines ?G43.909 - Migraine, unspecified, not intractable, without status migrainosus (ICD-10) Anxiety ?F41.9 - Anxiety disorder, unspecified (ICD-10) Depression ?F32.A - Depression, unspecified (ICD-10) Stomach ulcer ?K25.9 - Gastric ulcer, unspecified as acute or chronic, without hemorrhage or perforation (ICD-10) Pancreatitis ?K85.90 - Acute pancreatitis without necrosis or infection, unspecified (ICD- 10) Kidney stone ?N20.0 - Calculus of kidney (ICD-10) Surgical History (Updated 03/22/24 @ 10:21 by Gin Machado) History of fine needle aspiration with imaging guidance ?Z98.890 - Other specified postprocedural states (ICD-10) Hx laparoscopic cholecystectomy ?Z90.49 - Acquired absence of other specified parts of digestive tract (ICD- 10) History of lumpectomy of right breast ?Z98.890 - Other specified postprocedural states (ICD-10) History of placement of ear tubes ?Z96.22 - Myringotomy tube(s) status (ICD-10) S/P insertion of spinal cord stimulator ?Z96.89 - Presence of other specified functional implants (ICD-10) History of knee replacement procedure of left knee ?Z96.652 - Presence of left artificial knee joint (ICD-10) Gastric bypass status for obesity ?Z98.84 - Bariatric surgery status (ICD-10) H/O: hysterectomy ?Z90.710 - Acquired absence of both cervix and uterus (ICD-10) Hx of appendectomy ?Z90.49 - Acquired absence of other specified parts of digestive tract (ICD- 10) Family History (Updated 08/11/23 @ 10:31 by Josie Pantoja) Grandfather Family history of COPD (chronic obstructive pulmonary disease) Father Family history of cancer Family history of diabetes mellitus Family history of hypertension Family history of stroke Sister Family history of cancer Family history of diabetes mellitus Grandmother Family history of diabetes mellitus Family history of hypertension Social History Within the past year, how often did you have a drink containing alcohol: never Within the past year, how many standard drinks containing alcohol did you have on a typical day: 1 or 2 Within the past year, how often did you have six or more drinks on one occasion: never Total score: 0 Score interpretation: A score less than 3 is consistent with normal alcohol consumption. Smoking status: Former smoker Second hand tobacco smoke exposure: No Non-prescribed substance use: denies use Previous occupational history: [employer] Known occupational exposures/hazards: No Highest level of school completed/degree received: some college, no degree Are you now , , , , never or living with a partner: In a typical week, how many times do you talk on the telephone with family, friends, or neighbors: 3 or more times per week How often do you get together with friends or relatives: 3 or more times per week How often do you attend mormonism or sabianism services: 4 or more times per year Do you belong to any clubs or organizations such as mormonism groups unions, [employer] or athletic groups, or school groups: no Total score: 3 Score interpretation: A score of greater than or equal to 2 indicates the lowest level of social isolation. Little interest or pleasure in doing things: not at all Feeling down, depressed, or hopeless: not at all Feel stressed/tense/nervous/anxious/difficulty sleeping: not at all Do you think of yourself as: straight/heterosexual Gender Identity: female Exam Narrative Exam Narrative: Gen.: Awake, alert, in no distress, tearful Head: Normocephalic, atraumatic ENT: Moist mucous membranes Respiratory: No respiratory distress, lungs clear bilaterally Cardio: Regular rate and rhythm Gastrointestinal: Abdomen is soft, nondistended and nontender to palpation Back: Tenderness above the palpable device embedded in the right flank. No CVA tenderness, no spinal tenderness Extremities: Moves extremities equally Psych: Normal mood and affect Neuro: No focal neuro deficit Skin: Warm, dry, intact Constitutional Vital Signs, click to edit/add: Last Vital Signs Temp 98.3 F 03/22/24 16:07 Pulse 90 03/22/24 16:07 Resp 18 03/22/24 16:07 BP 164/104 H 03/22/24 16:07 Pulse Ox 97 03/22/24 16:07 O2 Del Method Room Air 03/22/24 16:07 Course Vital Signs Vital signs: Vital Signs Temperature 98.3 F 03/22/24 16:07 Pulse Rate 90 03/22/24 16:07 Respiratory Rate 18 03/22/24 16:07 Blood Pressure 164/104 H 03/22/24 16:07 Pulse Oximetry 97 03/22/24 16:07 Oxygen Delivery Method Room Air 03/22/24 16:07 Temperature 98.3 F 03/22/24 16:07 Pulse Rate 90 03/22/24 16:07 Respiratory Rate 18 03/22/24 16:07 Blood Pressure 164/104 H 03/22/24 16:07 Pulse Oximetry 97 03/22/24 16:07 Oxygen Delivery Method Room Air 03/22/24 16:07 Medical Decision Making MDM Narrative Medical decision making narrative: IV established, blood and urine specimen obtained. Patient sent for CT. I discussed the case with Dr. Ledesma who recommended that the patient be admitted for observation for symptom control, we do not need to wait for results per Dr. Ledesma. Patient stable at time of admission. Medical Records Medical records reviewed: Yes I reviewed the patient's medical records Lab Data Lab results reviewed: Yes I reviewed the patient's lab results Labs: Lab Results 03/22/24 Range/Units 16:36 WBC 5.4 (4.0-11.0) 10^3/uL RBC 4.17 L (4.20-5.40) 10^6/uL Hgb 11.6 L (12.0-16.0) g/dL Hct 37.0 (36.0-48.0) % MCV 88.7 (81.0-99.0) fL MCH 27.8 (26.7-34.0) pg MCHC 31.4 (29.9-35.2) g/dL RDW 13.2 (11.0-15.0) % Plt Count 226 (150-450) 10^3/uL MPV 9.8 (9.5-13.5) fL Neut % (Auto) 54.1 (43.0-75.0) % Lymph % (Auto) 37.9 (20.5-60.0) % [place] % (Auto) 6.1 (1.7-12.0) % Eos % (Auto) 1.1 (0.9-7.0) % Baso % (Auto) 0.4 (0.2-2.0) % Neut # (Auto) 2.9 (1.4-6.5) 10^3/uL Lymph # (Auto) 2.0 (1.2-3.8) 10^3/uL [place] # (Auto) 0.3 (0.3-0.8) 10^3/uL Eos # (Auto) 0.1 (0.0-0.7) 10^3/uL Baso # (Auto) 0.0 (0.0-0.1) 10^3/uL Abs Immat Gran (auto) 0.02 (0.00-0.03) 10^3/uL Imm/Tot Granulo (auto) 0.4 (0.0-0.5) % Discharge Plan Discharge Chief Complaint: Abdominal Pain Patient Disposition: Admitted as Observation Time of Disposition Decision: 17:02 Prescriptions / Home Meds: No Action ondansetron 4 mg tablet,disintegrating 4 mg PO Q4H PRN (Reason: nausea and vomiting) Rx Instructions: filled 08/10/23 for 3 days tamsulosin [Flomax] 0.4 mg capsule 0.4 mg PO DAILY Patient Comments: filled 08/10/23 for 14 days amitriptyline 50 mg tablet 100 mg PO BEDTIME Premarin 0.625 mg/gram cream 0.625 mg vaginal PRN cyanocobalamin (vitamin B-12) 1,000 mcg/mL solution 1,000 mcg IM .monthly tizanidine 4 mg tablet 8 mg PO BEDTIME hydrocodone-acetaminophen 5-325 mg tablet 1 tab PO Q12H PRN (Reason: pain) pantoprazole 40 mg tablet,delayed release (DR/EC) 80 mg PO BID oxybutynin chloride 5 mg tablet 5 mg PO Q12H PRN (Reason: bladder spasms) 3 Days Qty: 14 0RF phenazopyridine [Pyridium] 200 mg tablet 200 mg PO Q8H 2 Days Qty: 6 0RF oxycodone-acetaminophen [Percocet] 5-325 mg tablet 1 tab PO Q4H PRN (Reason: pain) Qty: 7 0RF gabapentin 300 mg capsule 300 mg PO DAILY topiramate 50 mg tablet 50 mg PO DAILY multivitamin Tablet 1 tab PO DAILY ferrous sulfate [FeroSul] 325 mg (65 mg iron) tablet 325 mg PO DAILY sucralfate [Carafate] 1 gram tablet 1 g PO .TID WM calcium carbonate 600 mg calcium (1,500 mg) tablet 1,200 mg PO DAILY Print Language: Mozambican Referrals: Yasir Ledesma MD [Primary Care Provider] - 1 week
[2024-03-22] MEDS: ONDANSETRON PF 4 MG/2 ML VIAL IV (16:43)
[2024-03-22] MEDS: HYDROMORPHONE HCL 1 MG/ML CARTRIDGE IV (16:43)
[2024-03-22] MEDS: 0.9 % SODIUM CHLORIDE 1,000 ML 1000 ML IV ×3 (16:43→19:44)
[2024-03-22 16:50] LABS: Basophils Percent Auto 0.4 % (0.2-2.0); Eosinophils Absolute Auto 0.1 10^3/uL (0.0-0.7); Eosinophils Percent Auto 1.1 % (0.9-7.0); Hemoglobin 11.6 g/dL (12.0-16.0); Immature Granulocytes Abs Auto 0.02 10^3/uL (0.00-0.03); Immature Granulocytes Pct Auto 0.4 % (0.0-0.5); Lymphocytes Percent Auto 37.9 % (20.5-60.0); Mean Corpuscular HGB Conc 31.4 g/dL (29.9-35.2); Mean Corpuscular Hemoglobin 27.8 pg (26.7-34.0); Mean Corpuscular Volume 88.7 fL (81.0-99.0); Mean Platelet Volume 9.8 fL (9.5-13.5); Monocytes Absolute Auto 0.3 10^3/uL (0.3-0.8); Monocytes Percent Auto 6.1 % (1.7-12.0); Neutrophils Absolute Auto 2.9 10^3/uL (1.4-6.5); Neutrophils Percent Auto 54.1 % (43.0-75.0); Platelet Count 226 10^3/uL (150-450); Red Blood Count 4.17 10^6/uL (4.20-5.40); Red Cell Distribution Width 13.2 % (11.0-15.0); White Blood Count 5.4 10^3/uL (4.0-11.0)
[2024-03-22 16:54] LABS: Bilirubin Urine NEGATIVE (NEGATIVE); Blood Urine LARGE (NEGATIVE); Clarity Urine SL CLOUDY (CLEAR); Color Urine YELLOW (YELLOW); Glucose Urine UA NEGATIVE (NEGATIVE); Ketones Urine NEGATIVE (NEGATIVE); Leukocyte Esterase Urine SMALL (NEGATIVE); Nitrite Urine NEGATIVE (NEGATIVE); Protein Urine NEGATIVE (NEG/TRACE); Specific Gravity Urine 1.025 (1.005-1.025)
[2024-03-22 17:01] LABS: Urine Microscopic Indicated YES
[2024-03-22 17:16] LABS: Lactate/Lactic Acid 0.8 mmol/L (0.4-2.0)
--- NOTE | 2024-03-22 17:16 | P.HP_ITS ---
HPI H&P: HPI History of Present Illness Chief complaint: Right Flank Pain, Nausea/Vomiting Narrative: Pain and was seen and evaluated in the office with increasing right flank pain over the last 2 days. Medications at home not controlling pain. She was slightly tachycardic blood pressure elevated in the office so unable to do a direct admission. She was recommended to go to the emergency room for evaluation. In the emergency room, blood pressure was significantly elevated CT scan done looking for kidney stone which she does have a strong history of, no kidney stone was found but appears to have acute pyelonephritis with right flank pain and positive UA. When I saw patient up on the medical surgical floor, she was very uncomfortable from a pain standpoint. Denied chest pain or shortness of breath no other complaints other than the right flank pain and nausea Opioid HPI Opioid Management Most Recent Opioid Data: Last Pain Scale 5 03/23/24 06:32 Last Pain Assessment 03/23/24 05:00 Last MAR Pain Assessment 03/23/24 06:32 Last ORT Total Score 7 03/22/24 17:39 Last ORT Risk Category Moderate Risk 03/22/24 17:39 Review of Systems ROS Status of ROS 10 or more systems reviewed and unremark able except as noted in history and below PFSH PFS Medical History (Updated 03/22/24 @ 17:02 by ADITI Chapa) Mass of right parotid gland ?K11.8 - Other diseases of salivary glands (ICD-10) Migraines ?G43.909 - Migraine, unspecified, not intractable, without status migrainosus (ICD-10) Anxiety ?F41.9 - Anxiety disorder, unspecified (ICD-10) Depression ?F32.A - Depression, unspecified (ICD-10) Stomach ulcer ?K25.9 - Gastric ulcer, unspecified as acute or chronic, without hemorrhage or perforation (ICD-10) Pancreatitis ?K85.90 - Acute pancreatitis without necrosis or infection, unspecified (ICD- 10) Kidney stone ?N20.0 - Calculus of kidney (ICD-10) Surgical History (Updated 03/22/24 @ 10:21 by Gin Machado) History of fine needle aspiration with imaging guidance ?Z98.890 - Other specified postprocedural states (ICD-10) Hx laparoscopic cholecystectomy ?Z90.49 - Acquired absence of other specified parts of digestive tract (ICD- 10) History of lumpectomy of right breast ?Z98.890 - Other specified postprocedural states (ICD-10) History of placement of ear tubes ?Z96.22 - Myringotomy tube(s) status (ICD-10) S/P insertion of spinal cord stimulator ?Z96.89 - Presence of other specified functional implants (ICD-10) History of knee replacement procedure of left knee ?Z96.652 - Presence of left artificial knee joint (ICD-10) Gastric bypass status for obesity ?Z98.84 - Bariatric surgery status (ICD-10) H/O: hysterectomy ?Z90.710 - Acquired absence of both cervix and uterus (ICD-10) Hx of appendectomy ?Z90.49 - Acquired absence of other specified parts of digestive tract (ICD- 10) Family History (Updated 08/11/23 @ 10:31 by Josie Pantoja) Grandfather Family history of COPD (chronic obstructive pulmonary disease) Father Family history of cancer Family history of diabetes mellitus Family history of hypertension Family history of stroke Sister Family history of cancer Family history of diabetes mellitus Grandmother Family history of diabetes mellitus Family history of hypertension Social History Within the past year, how often did you have a drink containing alcohol: never Within the past year, how many standard drinks containing alcohol did you have on a typical day: 1 or 2 Within the past year, how often did you have six or more drinks on one occasion: never Total score: 0 Score interpretation: A score less than 3 is consistent with normal alcohol consumption. Smoking status: Former smoker Second hand tobacco smoke exposure: No Non-prescribed substance use: denies use Previous occupational history: [employer] Known occupational exposures/hazards: No Highest level of school completed/degree received: some college, no degree Are you now , , , , never or living with a partner: In a typical week, how many times do you talk on the telephone with family, friends, or neighbors: 3 or more times per week How often do you get together with friends or relatives: 3 or more times per week How often do you attend gnosticist or restorationist services: 4 or more times per year Do you belong to any clubs or organizations such as gnosticist groups unions, [employer] or athletic groups, or school groups: no Total score: 3 Score interpretation: A score of greater than or equal to 2 indicates the lowest level of social isolation. Little interest or pleasure in doing things: not at all Feeling down, depressed, or hopeless: not at all Feel stressed/tense/nervous/anxious/difficulty sleeping: not at all Do you think of yourself as: straight/heterosexual Gender Identity: female Meds Home Medications and Allergies Home Medications ?Medication ?Instructions ?Recorded ?Confirmed ?Type cyanocobalamin (vitamin B-12) 1,000 mcg IM .monthly 08/11/23 03/22/24 History 1,000 mcg/mL injection solution hydrocodone 5 mg-acetaminophen 325 1 tab PO Q8H PRN pain 08/11/23 03/22/24 History mg tablet tamsulosin 0.4 mg capsule (Flomax) 0.4 mg PO DAILY 08/11/23 03/22/24 History tizanidine 4 mg tablet 8 mg PO BEDTIME 08/11/23 03/22/24 History pantoprazole 40 mg tablet,delayed 40 mg PO BID 09/13/23 03/22/24 History release calcium carbonate 1,200 mg PO DAILY 03/17/24 03/22/24 History ferrous sulfate 325 mg (65 mg 325 mg PO DAILY 03/17/24 03/22/24 History iron) tablet (FeroSul) gabapentin 300 mg capsule 300 mg PO Q12H 03/17/24 03/22/24 History multivitamin 1 tab PO DAILY 03/17/24 03/22/24 History amitriptyline 100 mg tablet 100 mg PO .QHS 03/22/24 03/22/24 History Allergies Allergy/AdvReac Type Severity Reaction Status Date / Time ketorolac [From Toradol] Allergy Intermediate Rash Verified 03/22/24 10:19 meperidine [From Demerol] Allergy Intermediate Rash Verified 03/22/24 10:19 prochlorperazine Allergy Intermediate hallucinati Verified 03/22/24 10:19 [From Compazine] ons Exam Constitutional Vital Signs, click to edit/add: Last Vital Signs Temp 98.3 F 03/22/24 16:07 Pulse 90 03/22/24 16:07 Resp 18 03/22/24 16:07 BP 164/104 H 03/22/24 16:07 Pulse Ox 97 03/22/24 16:07 O2 Del Method Room Air 03/22/24 16:07 Documenting provider has reviewed patient's vital signs: yes Common normals: apparent distress (Painful distress moderate) Chest Common normals: inspection of chest normal Respiratory Common normals: normal respiratory effort, no retractions and clear to auscultation bilaterally Cardio Common normals: regular rate, regular rhythm and no murmurs GI Common normals: Normal to inspection, nondistended, normoactive bowel sounds present (Right flank CVA tenderness) Common normals: CVA tenderness Bladder/kidney exam: CVA tenderness on the right; CVA tenderness Results Labs Labs: Short CBC 03/22/24 Range/Units 16:36 WBC 5.4 (4.0-11.0) 10^3/uL Hgb 11.6 L (12.0-16.0) g/dL Hct 37.0 (36.0-48.0) % Plt Count 226 (150-450) 10^3/uL Urine 03/22/24 Range/Units 16:40 Urine Color Yellow (YELLOW) Urine Clarity Sl cloudy (CLEAR) Urine pH 7.0 (5.0-9.0) Ur Specific [place] 1.025 (1.005-1.025) Urine Protein Negative (NEG/TRACE) mg/dL Urine Glucose (UA) Negative (NEGATIVE) mg/dL Assessment and Plan Assessment and Plan (1) Right flank pain: Plan Patient findings: Uncontrolled hypertension secondary to right flank pain with positive UA consistent with acute pyelonephritis. No nephrolithiasis. Pain control, Phenergan IV for nausea, ondansetron has been ineffective in the past, IV antibiotics until cultures return. Uncontrolled hypertension-as needed hydralazine Iron deficiency anemia-monitor daily GERD-continue with home medications Insomnia-continue home medications Admission status: Patient appears to have acute pyelonephritis, IV fluids overnight, IV antibiotics, assess pain in a.m., observation status to start. If pain not well-controlled and requires a longer admission for medically necessary treatment, if this medically necessary treatment will span 2 midnights she will be changed to inpatient status
[2024-03-22 17:23] LABS: Alanine Aminotransferase 25 U/L (14-59); Albumin Globulin Ratio 1.1; Albumin Level 3.8 g/dL (3.4-5.0); Alkaline Phosphatase 96 U/L (46-116); Anion Gap 9.8; Aspartate Amino Transferase 16 U/L (15-37); BUN Creatinine Ratio 24.3; Bilirubin Total 0.2 mg/dL (0.2-1.0); Calcium 8.7 mg/dL (8.5-10.1); Carbon Dioxide 29.2 mmol/L (21.0-32.0); Chloride 102 mmol/L (98-107); Estimated GFR (African America >60 (>=60); Estimated GFR (Non-African Ame >60 (>=60); Globulin 3.6 g/dL; Glucose 84 mg/dL (74-106); Sodium 137 mmol/L (136-145); Total Protein 7.4 g/dL (6.4-8.2)
[2024-03-22 17:26] LABS: Bacteria Urine TRACE #/HPF (NONE SEEN); Mucus Urine NONE SEEN (NONE SEEN); RBC Urine >100 #/HPF (0-2); Squamous Epithelial Cell Urine MODERATE #/LPF (NONE/RARE)
[2024-03-22 17:27] LABS: Cast Seen? NONE SEEN #/LPF (NONE SEEN); Crystals Seen? None Seen #/HPF (None Seen); Urine Culture Indicated YES
[2024-03-22 17:39] VITALS: BP 150/101; PULSE 71; TEMP 37.1; O2SAT 98; BMI 25.8
[2024-03-22 19:28] VITALS: O2SAT 94
[2024-03-22 20:00] VITALS: PULSE 80; TEMP 36.7; O2SAT 96
[2024-03-22] MEDS: HYDROMORPHONE HCL 0.5 MG/0.5 ML SYRINGE IV (20:41)
[2024-03-22] MEDS: PROMETHAZINE HCL 25 MG in 0.9 % SODIUM CHLORIDE 50 ML 204 MG IV (20:41)
[2024-03-22] MEDS: LACTATED RINGER'S SOLUTION 1,000 ML 100 ML IV (21:17)
[2024-03-22] MEDS: GABAPENTIN 300 MG CAPSULE PO (21:20)
[2024-03-22] MEDS: PANTOPRAZOLE SODIUM 40 MG VIAL IV (21:20)
[2024-03-22] MEDS: CEFTRIAXONE 1,000 MG in 0.9 % SODIUM CHLORIDE 50 ML 100 MG IV (21:20)
[2024-03-22] MEDS: SUCRALFATE 1 GM TABLET PO (21:21)
[2024-03-22 21:35] VITALS: BP 148/102
[2024-03-22] MEDS: LEVOFLOXACIN IN DEXTROSE 5 % 750 MG/150 ML IV.SOLN 100 MG IV (22:17)
[2024-03-22] MEDS: HYOSCYAMINE SULFATE 0.125 MG TAB.SUBL SL (22:17)
[2024-03-23] VITALS (11 sets, daily range): BP systolic 125–161; BP diastolic 83–104; PULSE 72–97; TEMP 26.1–36.7; O2SAT 96–99
[2024-03-23] MEDS: HYDROMORPHONE HCL 0.5 MG/0.5 ML SYRINGE IV ×6 (00:37→23:38)
[2024-03-23] MEDS: PROMETHAZINE HCL 25 MG in 0.9 % SODIUM CHLORIDE 50 ML 204 MG IV ×3 (04:57→23:40)
[2024-03-23 05:30] LABS: Basophils Percent Auto 0.3 % (0.2-2.0); Eosinophils Absolute Auto 0.1 10^3/uL (0.0-0.7); Eosinophils Percent Auto 1.4 % (0.9-7.0); Hematocrit 34.1 % (36.0-48.0); Hemoglobin 10.6 g/dL (12.0-16.0); Lymphocytes Absolute Auto 1.8 10^3/uL (1.2-3.8); Lymphocytes Percent Auto 48.4 % (20.5-60.0); Mean Corpuscular HGB Conc 31.1 g/dL (29.9-35.2); Mean Corpuscular Hemoglobin 27.6 pg (26.7-34.0); Mean Corpuscular Volume 88.8 fL (81.0-99.0); Monocytes Absolute Auto 0.3 10^3/uL (0.3-0.8); Monocytes Percent Auto 7.7 % (1.7-12.0); Neutrophils Absolute Auto 1.6 10^3/uL (1.4-6.5); Neutrophils Percent Auto 42.2 % (43.0-75.0); Platelet Count 165 10^3/uL (150-450); Red Blood Count 3.84 10^6/uL (4.20-5.40); Red Cell Distribution Width 13.2 % (11.0-15.0); White Blood Count 3.7 10^3/uL (4.0-11.0)
[2024-03-23 05:36] LABS: Erythrocyte Sedimentation Rate 10 mm/hr (<=20)
[2024-03-23 05:51] LABS: Alanine Aminotransferase 25 U/L (14-59); Albumin Level 3.1 g/dL (3.4-5.0); Alkaline Phosphatase 85 U/L (46-116); Anion Gap 7.6; Aspartate Amino Transferase 17 U/L (15-37); BUN Creatinine Ratio 16.2; Bilirubin Total 0.2 mg/dL (0.2-1.0); Calcium 8.5 mg/dL (8.5-10.1); Carbon Dioxide 30.4 mmol/L (21.0-32.0); Chloride 105 mmol/L (98-107); Estimated GFR (African America >60 (>=60); Estimated GFR (Non-African Ame >60 (>=60); Globulin 3.1 g/dL; Glucose 73 mg/dL (74-106); Sodium 139 mmol/L (136-145); Total Protein 6.2 g/dL (6.4-8.2)
[2024-03-23] MEDS: SUCRALFATE 1 GM TABLET PO ×3 (06:32→17:35)
[2024-03-23] MEDS: HYOSCYAMINE SULFATE 0.125 MG TAB.SUBL SL (06:32)
--- NOTE | 2024-03-23 07:46 | P.PN_ITS ---
Progress Note: Subjective Subjective Interval history: Patient states pain is persisting, she definitely seems more comfortable than yesterday. Exam Constitutional Vital Signs, click to edit/add: Last Vital Signs Temp 97.8 F 03/23/24 06:36 Pulse 72 03/23/24 06:36 Resp 18 03/23/24 06:36 BP 125/83 03/23/24 06:36 Pulse Ox 99 03/23/24 06:36 O2 Del Method Room Air 03/23/24 06:36 Documenting provider has reviewed patient's vital signs: yes Common normals: apparent distress (Painful distress moderate-somewhat improved) Chest Common normals: inspection of chest normal Respiratory Common normals: normal respiratory effort, no retractions and clear to auscultation bilaterally Cardio Common normals: regular rate, regular rhythm and no murmurs GI Common normals: Normal to inspection, nondistended, normoactive bowel sounds present (Right flank CVA tenderness) Common normals: CVA tenderness Bladder/kidney exam: CVA tenderness on the right; CVA tenderness Progress Note: Objective Labs Labs: Short CBC 03/22/24 03/23/24 Range/Units 16:36 04:52 WBC 5.4 3.7 L (4.0-11.0) 10^3/uL Hgb 11.6 L 10.6 L (12.0-16.0) g/dL Hct 37.0 34.1 L (36.0-48.0) % Plt Count 226 165 (150-450) 10^3/uL BMP 03/22/24 03/23/24 16:36 04:52 Sodium 137 139 Potassium 4.0 4.0 Chloride 102 105 Carbon Dioxide 29.2 30.4 BUN 17.0 11.0 Creatinine 0.70 0.68 Glucose 84 73 L Calcium 8.7 8.5 Liver Function 03/22/24 03/23/24 Range/Units 16:36 04:52 Total Bilirubin 0.2 0.2 (0.2-1.0) mg/dL AST 16 17 (15-37) U/L ALT 25 25 (14-59) U/L Alkaline Phosphatase 96 85 (46-116) U/L Albumin 3.8 3.1 L (3.4-5.0) g/dL Urine 03/22/24 Range/Units 16:40 Urine Color Yellow (YELLOW) Urine Clarity Sl cloudy (CLEAR) Urine pH 7.0 (5.0-9.0) Ur Specific [place] 1.025 (1.005-1.025) Urine Protein Negative (NEG/TRACE) mg/dL Urine Glucose (UA) Negative (NEGATIVE) mg/dL Progress Note: A&P Assessment and Plan (1) Right flank pain: Plan Patient findings: Uncontrolled hypertension secondary to right flank pain with positive UA consistent with acute pyelonephritis. No nephrolithiasis. Continue with IV antibiotics, cultures pending. Pain control. Uncontrolled hypertension-as needed hydralazine-overall improved Iron deficiency anemia-monitor daily GERD-continue with home medications Insomnia-continue home medications Admission status: Patient appears to have acute pyelonephritis, IV fluids overnight, IV antibiotics, assess pain in a.m., observation status to start. Pain not significantly improved. Difficulty eating, with recurrent emesis. Secondary to the pain. Medically necessary treatment will span 2 midnights. Change patient to inpatient status. Another 1-2 additional days from today. ?
[2024-03-23] MEDS: MULTIVITAMIN TABLET 1 TAB PO (08:40)
[2024-03-23] MEDS: GABAPENTIN 300 MG CAPSULE PO ×2 (08:40→22:16)
[2024-03-23] MEDS: HYOSCYAMINE SULFATE 0.125 MG TAB.SUBL 0.25 MG SL ×4 (08:40→22:16)
[2024-03-23] MEDS: HYDROCODONE/ACET 5-325 MG TABLET 1 TAB PO ×2 (08:40→17:41)
[2024-03-23] MEDS: TOPIRAMATE 25 MG TABLET 50 MG PO (08:40)
[2024-03-23] MEDS: TAMSULOSIN HCL 0.4 MG CAPSULE 0.400000000000000022 MG PO (08:40)
[2024-03-23] MEDS: LACTATED RINGER'S SOLUTION 1,000 ML 100 ML IV ×2 (09:51→20:27)
[2024-03-23] MEDS: ONDANSETRON PF 4 MG/2 ML VIAL IV (17:35)
[2024-03-23] MEDS: CEFTRIAXONE 1,000 MG in 0.9 % SODIUM CHLORIDE 50 ML 100 MG IV (20:27)
[2024-03-23] MEDS: PANTOPRAZOLE SODIUM 40 MG VIAL IV (20:31)
[2024-03-23] MEDS: AMITRIPTYLINE HCL 50 MG TABLET 100 MG PO (22:16)
[2024-03-23] MEDS: LEVOFLOXACIN IN DEXTROSE 5 % 750 MG/150 ML IV.SOLN 100 MG IV (22:17)
[2024-03-24] VITALS (13 sets, daily range): BP systolic 122–144; BP diastolic 80–92; PULSE 77–95; TEMP 36.3–36.5; O2SAT 96–99
[2024-03-24] MEDS: ONDANSETRON PF 4 MG/2 ML VIAL IV ×3 (04:18→12:46)
[2024-03-24] MEDS: HYDROMORPHONE HCL 0.5 MG/0.5 ML SYRINGE IV ×4 (04:18→16:44)
[2024-03-24] MEDS: LACTATED RINGER'S SOLUTION 1,000 ML 100 ML IV (04:20)
[2024-03-24 05:21] LABS: Basophils Percent Auto 0.2 % (0.2-2.0); Eosinophils Absolute Auto 0.1 10^3/uL (0.0-0.7); Eosinophils Percent Auto 2.1 % (0.9-7.0); Hematocrit 33.8 % (36.0-48.0); Hemoglobin 10.7 g/dL (12.0-16.0); Immature Granulocytes Abs Auto 0.01 10^3/uL (0.00-0.03); Immature Granulocytes Pct Auto 0.2 % (0.0-0.5); Lymphocytes Absolute Auto 1.4 10^3/uL (1.2-3.8); Mean Corpuscular HGB Conc 31.7 g/dL (29.9-35.2); Mean Corpuscular Hemoglobin 27.6 pg (26.7-34.0); Mean Corpuscular Volume 87.1 fL (81.0-99.0); Mean Platelet Volume 9.8 fL (9.5-13.5); Monocytes Absolute Auto 0.3 10^3/uL (0.3-0.8); Monocytes Percent Auto 7.3 % (1.7-12.0); Neutrophils Absolute Auto 2.6 10^3/uL (1.4-6.5); Neutrophils Percent Auto 59.2 % (43.0-75.0); Platelet Count 191 10^3/uL (150-450); Red Blood Count 3.88 10^6/uL (4.20-5.40); White Blood Count 4.4 10^3/uL (4.0-11.0)
[2024-03-24 05:27] LABS: Erythrocyte Sedimentation Rate 32 mm/hr (<=20)
[2024-03-24 05:37] LABS: Alanine Aminotransferase 22 U/L (14-59); Albumin Globulin Ratio 0.9; Alkaline Phosphatase 85 U/L (46-116); Anion Gap 11.5; Aspartate Amino Transferase 13 U/L (15-37); BUN Creatinine Ratio 9.3; Bilirubin Total 0.2 mg/dL (0.2-1.0); Calcium 8.6 mg/dL (8.5-10.1); Chloride 106 mmol/L (98-107); Estimated GFR (African America >60 (>=60); Estimated GFR (Non-African Ame >60 (>=60); Globulin 3.2 g/dL; Glucose 91 mg/dL (74-106); Potassium 3.5 mmol/L (3.5-5.1); Sodium 140 mmol/L (136-145); Total Protein 6.2 g/dL (6.4-8.2)
--- NOTE | 2024-03-24 07:47 | US_ITS ---
[address] [address] Patient Name: KRISTINE MADDEN MRN: [id number] date: 1980 Sex: F Assigned Patient Location: [place] Current Patient Location: [place] Accession/Order Number: [id number] Exam Date: 03/24/2024 13:12 Report Date: 03/24/2024 14:59 At the request of: ARLETH ACHARYA Procedure: US renal bladder EXAMINATION: US renal bladder HISTORY: pyelo - please include pvr COMPARISON: No relevant comparison available. TECHNIQUE: Ultrasound examination was performed of the bladder. FINDINGS: Right Kidney: Normal in size, contour and echotexture. No solid cortical mass, hydronephrosis or obstructing nephrolithiasis. The cortex measures 1.4 cm. Height: 6.6 cm Length: 10.5 cm Width: 5.5 cm Left Kidney: Normal in size, contour and echotexture. No solid cortical mass, hydronephrosis or obstructing nephrolithiasis. The cortex measures 1.7 cm Height: 4.7 cm Length: 10.5 cm Width: 4.7 cm Urinary bladder wall measures 2 mm normal. Prevoid volume 390 mL. Post void volume 95 mL Ureteral jets: Visualized bilaterally US/US renal bladder IMPRESSION: No acute abnormality Electronically authenticated by: CARISSA JOHN Date: 03/24/2024 14:59
--- NOTE | 2024-03-24 07:47 | XR_ITS ---
The [address] [address] Patient Name: KRISTINE MADDEN MRN: [id number] date: 1980 Sex: F Assigned Patient Location: [place] Current Patient Location: [place] Accession/Order Number: [id number] Exam Date: 03/24/2024 08:00 Report Date: 03/24/2024 08:34 At the request of: ARLETH ACHARYA Procedure: XR acute abdomen series EXAMINATION: XR acute abdomen series HISTORY: vomiting COMPARISON: No relevant comparison available. FINDINGS: LUNGS: No infiltrate, pneumothorax, or pleural effusion. MEDIASTINUM: No abnormal widening. BOWEL GAS PATTERN: Non-obstructed. Scattered air-fluid levels. Large amount of stool throughout the colon and rectum FREE AIR: None. CALCIFICATIONS: None significant. BONES: No fracture or visible bone lesion. OTHER: Right lower quadrant neurostimulator XR/XR acute abdomen series IMPRESSION: Large amount of stool throughout the colon and rectum Scattered air-fluid levels, consider an enteritis Electronically authenticated by: CARISSA JOHN Date: 03/24/2024 08:34
--- NOTE | 2024-03-24 07:54 | P.DS_ITS ---
DS: Providers Provider Date of admission: 03/23/24 07:49 Primary care physician: Yasir Ledesma MD Consults: 03/22/24 17:11 Consult to Pharmacy Routine Consulting Provider: Reason for consultation: Please [place] me when Med Rec is Updated Has provider been notified: No DS: Diagnosis Discharge Diagnosis (1) Right flank pain: (2) Pyelonephritis: (3) Uncontrolled hypertension: (4) Nausea & vomiting: Plan Admission findings: Uncontrolled hypertension secondary to right flank pain with positive UA consistent with acute pyelonephritis. Improving but not resolved at the time of discharge Uncontrolled hypertension-as needed hydralazine-stable at the time of discharge Iron deficiency anemia-stable at the time of discharge GERD-stable at the time of discharge Insomnia-stable at the time of discharge Admission status: Patient appears to have acute pyelonephritis, IV fluids overnight, IV antibiotics, assess pain in a.m., observation status to start. Pain not significantly improved. Difficulty eating, with recurrent emesis. Secondary to the pain. Medically necessary treatment will span 2 midnights. Change patient to inpatient status. Another 1-2 additional days from today. ? ? DS: Summary Hospital Course Hospital Course: Patient was seen and evaluated in the office with increasing flank pain. Medications she was using at home were ineffective. Because of her degree of tachycardia she was recommended for referral to the emergency room for initial evaluation prior to being admitted. In ER CT scan did not show any kidney stones, UA is consistent with acute infection, with symptoms would be consistent with acute pyelonephritis. Patient was placed on IV antibiotics and pain control. Her pain is improved this morning. She ate a few bites of food last night. Will see how her ED goes today. Will check renal ultrasound secondary to the pain persisting. Acute abdominal series secondary to the nausea persisting. If those do come back unremarkable, and she is able to eat, will discharge to home later today once culture results have returned. Medications see list. Follow-up with me in the office next week. Status at Discharge Overall status at discharge: patient is not back to baseline Time Spent with Patient Time attestation: Total time spent providing and/or coordinating discharge services: Time spent: greater than 30 minutes Exam Constitutional Vital Signs, click to edit/add: Last Vital Signs Temp 97.7 F 03/24/24 04:00 Pulse 95 H 03/24/24 04:00 Resp 18 03/24/24 04:00 BP 129/85 03/24/24 04:00 Pulse Ox 98 03/24/24 06:00 O2 Del Method Room Air 03/24/24 04:00 Documenting provider has reviewed patient's vital signs: yes Common normals: apparent distress (Painful distress moderate-better each day) Chest Common normals: inspection of chest normal Respiratory Common normals: normal respiratory effort, no retractions and clear to auscultation bilaterally Cardio Common normals: regular rate, regular rhythm and no murmurs GI Common normals: Normal to inspection, nondistended, normoactive bowel sounds present (Right flank CVA tenderness) Common normals: CVA tenderness Bladder/kidney exam: CVA tenderness on the right; CVA tenderness DS: Data Data Completed and Pending Labs on day of discharge: Labs from last 24 hours 03/24/24 04:12 WBC 4.4 RBC 3.88 L Hgb 10.7 L Hct 33.8 L MCV 87.1 MCH 27.6 MCHC 31.7 RDW 13.0 Plt Count 191 MPV 9.8 Neut % (Auto) 59.2 Lymph % (Auto) 31.0 [place] % (Auto) 7.3 Eos % (Auto) 2.1 Baso % (Auto) 0.2 Neut # (Auto) 2.6 Lymph # (Auto) 1.4 [place] # (Auto) 0.3 Eos # (Auto) 0.1 Baso # (Auto) 0.0 Abs Immat Gran (auto) 0.01 Imm/Tot Granulo (auto) 0.2 ESR 32 H Sodium 140 Potassium 3.5 Chloride 106 Carbon Dioxide 26.0 Anion Gap 11.5 BUN 7.0 Creatinine 0.75 Est GFR ( Amer) >60 Est GFR (Non-Af Amer) >60 BUN/Creatinine Ratio 9.3 Glucose 91 Calcium 8.6 Total Bilirubin 0.2 AST 13 L ALT 22 Alkaline Phosphatase 85 Total Protein 6.2 L Albumin 3.0 L Globulin 3.2 Albumin/Globulin Ratio 0.9 Lipase 35.0 Preliminary micro results at discharge 03/22/24 16:40 Urine Culture - Preliminary Urine,Clean Catch Discharge Plan Discharge Disposition: Home, Self-Care Condition: Good Discharge Medications: New levofloxacin 750 mg tablet 750 mg PO DAILY 10 Days Qty: 10 0RF Continued cyanocobalamin (vitamin B-12) 1,000 mcg/mL solution 1,000 mcg IM .monthly tizanidine 4 mg tablet 8 mg PO BEDTIME hydrocodone-acetaminophen 5-325 mg tablet 1 tab PO Q8H PRN (Reason: pain) pantoprazole 40 mg tablet,delayed release (DR/EC) 40 mg PO BID amitriptyline 100 mg tablet 100 mg PO .QHS gabapentin 300 mg capsule 300 mg PO Q12H multivitamin Tablet 1 tab PO DAILY ferrous sulfate [FeroSul] 325 mg (65 mg iron) tablet 325 mg PO DAILY calcium carbonate 600 mg calcium (1,500 mg) tablet 1,200 mg PO DAILY Print Language: [place] Forms: Portal Instructions
[2024-03-24] MEDS: TOPIRAMATE 25 MG TABLET 50 MG PO (08:39)
[2024-03-24] MEDS: TAMSULOSIN HCL 0.4 MG CAPSULE 0.400000000000000022 MG PO (08:39)
[2024-03-24] MEDS: MULTIVITAMIN TABLET 1 TAB PO (08:39)
[2024-03-24] MEDS: GABAPENTIN 300 MG CAPSULE PO (08:39)
[2024-03-24] MEDS: SUCRALFATE 1 GM TABLET PO ×3 (08:39→16:44)
[2024-03-24] MEDS: HYOSCYAMINE SULFATE 0.125 MG TAB.SUBL 0.25 MG SL ×2 (09:44→11:52)
[2024-03-24] MEDS: HYDROCODONE/ACET 5-325 MG TABLET 1 TAB PO (11:51)
--- NOTE | 2024-03-24 17:00 | P.PN_ITS ---
Progress Note: Subjective Subjective Interval history: Patient states pain is persisting, she definitely seems more comfortable than on admission. Exam Constitutional Vital Signs, click to edit/add: Last Vital Signs Temp 97.4 F L 03/24/24 16:00 Pulse 91 H 03/24/24 16:00 Resp 18 03/24/24 16:00 BP 122/80 03/24/24 16:00 Pulse Ox 98 03/24/24 16:00 O2 Del Method Room Air 03/24/24 16:00 Documenting provider has reviewed patient's vital signs: yes Common normals: apparent distress (Painful distress moderate-somewhat improved) Chest Common normals: inspection of chest normal Respiratory Common normals: normal respiratory effort, no retractions and clear to auscultation bilaterally Cardio Common normals: regular rate, regular rhythm and no murmurs GI Common normals: Normal to inspection, nondistended, normoactive bowel sounds present (Right flank CVA tenderness) Common normals: CVA tenderness Bladder/kidney exam: CVA tenderness on the right; CVA tenderness Progress Note: Objective Labs Labs: Short CBC 03/24/24 Range/Units 04:12 WBC 4.4 (4.0-11.0) 10^3/uL Hgb 10.7 L (12.0-16.0) g/dL Hct 33.8 L (36.0-48.0) % Plt Count 191 (150-450) 10^3/uL BMP 03/24/24 04:12 Sodium 140 Potassium 3.5 Chloride 106 Carbon Dioxide 26.0 BUN 7.0 Creatinine 0.75 Glucose 91 Calcium 8.6 Liver Function 03/24/24 Range/Units 04:12 Total Bilirubin 0.2 (0.2-1.0) mg/dL AST 13 L (15-37) U/L ALT 22 (14-59) U/L Alkaline Phosphatase 85 (46-116) U/L Albumin 3.0 L (3.4-5.0) g/dL Progress Note: A&P Assessment and Plan (1) Right flank pain: (2) Pyelonephritis: (3) Uncontrolled hypertension: (4) Nausea & vomiting: (5) Constipation: Plan Admission findings: Uncontrolled hypertension secondary to right flank pain with positive UA consistent with acute pyelonephritis. Culture did not grow anything specific the patient was already on outpatient antibiotics. Maintain current IV antibiotics his pain is persisting. Renal ultrasound unremarkable. Try to send patient home but pain persisting, nausea persisting. Patient unable to eat well enough to be discharged home otherwise she is likely just to rebound back. She for home in a.m. Acute abdominal pain-suspect partly related to the pyelonephritis. X-ray shows consistent with constipation. May be colitis the patient not having diarrhea no bloody bowel movements. On antibiotics for the above. Will try patient on lactulose to get bowels removed to see if that improves her abdominal pain. Uncontrolled hypertension-as needed hydralazine Iron deficiency anemia-continue to monitor somewhat better today GERD-stable on meds Insomnia-continue with meds Admission status: Patient appears to have acute pyelonephritis, IV fluids overnight, IV antibiotics, assess pain in a.m., observation status to start. Pain not significantly improved. Difficulty eating, with recurrent emesis. Secondary to the pain. Medically necessary treatment will span 2 midnights. Change patient to inpatient status. Another 1 additional day from today.
[2024-03-24] MEDS: METOCLOPRAMIDE HCL 10 MG/2 ML VIAL IVP (17:19)
--- NOTE | 2024-03-24 17:25 | PM.DS1 ---
DS: Providers Provider Date of admission: 03/23/24 07:49 Primary care physician: Yasir Ledesma MD Consults: 03/22/24 17:11 Consult to Pharmacy Routine Consulting Provider: Reason for consultation: Please [place] me when Med Rec is Updated Has provider been notified: No DS: Diagnosis Discharge Diagnosis (1) Right flank pain: (2) Pyelonephritis: (3) Uncontrolled hypertension: (4) Nausea & vomiting: (5) Constipation: DS: Summary Hospital Course Hospital Course: Patient was seen and evaluated in the office with increasing flank pain. Medications she was using at home were ineffective. Because of her degree of tachycardia she was recommended for referral to the emergency room for initial evaluation prior to being admitted. In ER CT scan did not show any kidney stones, UA is consistent with acute infection, with symptoms would be consistent with acute pyelonephritis. Patient was placed on IV antibiotics and pain control. Her pain is improved this morning. She ate a few bites of food last night. Will see how her ED goes today. Will check renal ultrasound secondary to the pain persisting. Acute abdominal series secondary to the nausea persisting. If those do come back unremarkable, and she is able to eat, will discharge to home later today once culture results have returned. Was negative, ultrasound kidneys was fine with no significant postvoid residual, acute abdominal series suggested constipation and she was tried on lactulose. Also offered Reglan for nausea. Plan was to have her stay 1 additional night, this evening she is feeling better and if she wants to try it at home. Will discharge patient home this evening. Medications see list. Follow-up with me in the office next week. Status at Discharge Overall status at discharge: patient is not back to baseline Time Spent with Patient Time attestation: Total time spent providing and/or coordinating discharge services: Time spent: greater than 30 minutes Exam Constitutional Vital Signs, click to edit/add: Last Vital Signs Temp 97.4 F L 03/24/24 16:00 Pulse 91 H 03/24/24 16:00 Resp 18 03/24/24 16:00 BP 122/80 03/24/24 16:00 Pulse Ox 98 03/24/24 16:00 O2 Del Method Room Air 03/24/24 16:00 Documenting provider has reviewed patient's vital signs: yes Common normals: apparent distress (Painful distress moderate-somewhat improved) Chest Common normals: inspection of chest normal Respiratory Common normals: normal respiratory effort, no retractions and clear to auscultation bilaterally Cardio Common normals: regular rate, regular rhythm and no murmurs GI Common normals: Normal to inspection, nondistended, normoactive bowel sounds present (Right flank CVA tenderness) Common normals: CVA tenderness Bladder/kidney exam: CVA tenderness on the right; CVA tenderness DS: Data Data Completed and Pending Labs on day of discharge: Labs from last 24 hours 03/24/24 04:12 WBC 4.4 RBC 3.88 L Hgb 10.7 L Hct 33.8 L MCV 87.1 MCH 27.6 MCHC 31.7 RDW 13.0 Plt Count 191 MPV 9.8 Neut % (Auto) 59.2 Lymph % (Auto) 31.0 [place] % (Auto) 7.3 Eos % (Auto) 2.1 Baso % (Auto) 0.2 Neut # (Auto) 2.6 Lymph # (Auto) 1.4 [place] # (Auto) 0.3 Eos # (Auto) 0.1 Baso # (Auto) 0.0 Abs Immat Gran (auto) 0.01 Imm/Tot Granulo (auto) 0.2 ESR 32 H Sodium 140 Potassium 3.5 Chloride 106 Carbon Dioxide 26.0 Anion Gap 11.5 BUN 7.0 Creatinine 0.75 Est GFR ( Amer) >60 Est GFR (Non-Af Amer) >60 BUN/Creatinine Ratio 9.3 Glucose 91 Calcium 8.6 Total Bilirubin 0.2 AST 13 L ALT 22 Alkaline Phosphatase 85 Total Protein 6.2 L Albumin 3.0 L Globulin 3.2 Albumin/Globulin Ratio 0.9 Lipase 35.0 Discharge Plan Discharge Disposition: Home, Self-Care Condition: Good Discharge Medications: New levofloxacin 750 mg tablet 750 mg PO DAILY 10 Days Qty: 10 0RF Continued cyanocobalamin (vitamin B-12) 1,000 mcg/mL solution 1,000 mcg IM .monthly tizanidine 4 mg tablet 8 mg PO BEDTIME hydrocodone-acetaminophen 5-325 mg tablet 1 tab PO Q8H PRN (Reason: pain) pantoprazole 40 mg tablet,delayed release (DR/EC) 40 mg PO BID amitriptyline 100 mg tablet 100 mg PO .QHS gabapentin 300 mg capsule 300 mg PO Q12H multivitamin Tablet 1 tab PO DAILY ferrous sulfate [FeroSul] 325 mg (65 mg iron) tablet 325 mg PO DAILY calcium carbonate 600 mg calcium (1,500 mg) tablet 1,200 mg PO DAILY Print Language: [place] Forms: Portal Instructions
--- NOTE | 2024-03-28 14:48 | CM.NOTE ---
Attempted Discharge Follow up call without success.
--- NOTE | 2024-03-29 15:32 | CM.DCFOLLOWU ---
Person spoke with: patient How are you feeling? better How is your pain? pain is manageable Did you understand your discharge instructions? yes Do you have any questions about your discharge instructions? no Were you given any prescriptions at discharge? yes Were you able to get your prescriptions filled? yes Do you understand how to take your medications as ordered? yes Do you have any questions about your follow up appointment and do you plan to keep your follow up appointment? no questions and she voiced she scheduled follow up with Dr. Ledesma Is there anything else that you would like to discuss? no Questions/Comments/Concerns/Other: none
== END 2024-03-24 18:10 | disposition home or self-care (01) | DRG 690 ==
LOC: ER 17:08 → MS 17:38
PROVIDERS: Physician Assistant; Admitting Provider Family Medicine; Emergency Provider Emergency Medicine; PCP Family Medicine; Visit Provider Family Medicine
DX: N10 Acute pyelonephritis (principal); I10 Essential (primary) hypertension; R11.2 Nausea with vomiting, unspecified; R10.9 Unspecified abdominal pain; K59.00 Constipation, unspecified; D50.9 Iron deficiency anemia, unspecified; K21.9 Gastro-esophageal reflux disease without esophagitis; G47.00 Insomnia, unspecified; R22.1 Localized swelling, mass and lump, neck; F41.9 Anxiety disorder, unspecified; F32.A Depression, unspecified; Z87.891 Personal history of nicotine dependence; Z87.442 Personal history of urinary calculi; Z90.49 Acquired absence of other specified parts of digestive tract; Z98.890 Other specified postprocedural states; Z96.652 Presence of left artificial knee joint; Z98.84 Bariatric surgery status; Z90.710 Acquired absence of both cervix and uterus; Z96.89 Presence of other specified functional implants; Z79.899 Other long term (current) drug therapy
CPT/HCPCS: 10005; 36415; 74022; 74176; 76770; 80053; 81001; 83605; 83690; 85025; 85652; 87086; 94667; 94761; 96361; 96365; 96366; 96367; 96368; 96375; 96376; 99285; G0378; J0696; J1170; J2250; J2405; J2765

== ENCOUNTER 2024-05-17 12:18 | Outpatient (RCR) | payer OTHER, SELFPAY | END 2024-05-18 11:30 | disposition home or self-care (01) | LOC: PT 12:18 | PROVIDERS: PCP Family Medicine; Visit Provider Family Medicine | DX: R42 Dizziness and giddiness (principal) | CPT/HCPCS: 97163 ==

== ENCOUNTER 2024-05-17 22:10 | Emergency (ER) | payer OTHER, SELFPAY ==
[2024-05-17 22:15] VITALS: BP 168/113; PULSE 92; TEMP 36.9; O2SAT 97; BMI 25.0
--- OUTSIDE RECORDS SUMMARY | 2024-05-17 22:17 | XMS_ITS ---
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 Name Role Phone TAMEZ, ZHANE W Unavailable Unavailable Hoy, Arleth Martinez Unavailable Unavailable TAMEZ, ZHANE W Unavailable Unavailable Hoy, Arleth Martinez Unavailable Unavailable TAMEZ, ZHANE W Unavailable Unavailable Hoy, Arleth Martinez Unavailable Unavailable TAMEZ, ZHANE W Unavailable Unavailable Hoy, Arleth Martinez Unavailable Unavailable TAMEZ, ZHANE W Unavailable Unavailable Tamez, Zhane Katz~ Unavailable Unavailabl e Hoy, Arleth Martinez Unavailable Unavailable TAMEZ, ZHANE W Unavailable Unavailable Hoy, Arleth Martinez Unavailable Unavailable Rima Sparrow Unavailable Unavailable Hoy, Arleth Martinez Unavailable Unavailable Rima Sparrow Unavailable Unavailable Hoy, Arleth Martinez Unavailable Unavailable TAMEZ, ZHANE W Unavailable Unavailable Hoy, Arleth Martinez Unavailable Unavailable Kevin Lane Referring Unavailable Kevin [...] Referring Unavailable HOY, ARLETH Primary Care Unavailable STEABHINAVOFFARIADNE Admitting Unavailable ROBERT SAINIOTHY Attending Unavailable SELF, REFERRED Referring Unavailable Kevin Lane Attending Unavailable Kevin Lane Admitting Unavailable NASIR RICHARDSON Referring Unavailable HOY, ARLETH Primary Care Unavailable Kevin Lane Attending Unavailable Gehling, Kevin Admitting Unavailable HOY, ARLETH Primary Care Unavailable HOY, ARLETH Referring Unavailable Geocing, Kevin Referring Unavailable Madaying, Kevin Attending Unavailable Gehling, Kevin Admitting Unavailable SELF, REFERRED Primary Care Unavailable Gehling, Kevin Referring Unavailable Gehling, Kevin Attending Unavailable Gehling, Kevin Admitting Unavailable SELF, REFERRED Primary Care Unavailable SELF, REFERRED Primary Care Unavailable FORSHEY, JORDEN D Admitting Unavailable FORSHEY, JORDEN D Attending Unavailable SELF, REFERRED Referring Unavailable SELF, REFERRED Primary Care Unavailable FORSHEY, JORDEN D Admitting Unavailable FORSHEY, JORDEN D Attending Unavailable SELF, REFERRED Referring Unavailable SELF, REFERRED Referring Unavailable Gehling, Kevin Attending Unavailable Gehling, [...] Referring Unavailable SELF, REFERRED Primary Care Unavailable Geocing, Kevin Attending Unavailable Madaying, Kevin Admitting Unavailable SELF, REFERRED Referring Unavailable Arleth Acharya Primary Care Physician ROSS ., DR ORTIZ Consulting Unavailable FREDO, NICK Primary Care Unavailable HAWKINS ., DR ORTIZ Admitting Unavailable HAWKINS ., DR ORTIZ Attending Unavailable HOY ., DR REINOSO Consulting Unavailable HOY ., DR REINOSO Attending Unavailable HOY ., DR REINOSO Primary Care Unavailable HOY ., DR REINOSO Admitting Unavailable HAWKINS ., DR ORTIZ Admitting Unavailable HAWKINS ., DR ORTIZ Consulting Unavailable [facility], NICK Primary Care Unavailable HAWKINS ., DR ORTIZ Attending Unavailable HAWKINS ., DR ORTIZ Consulting Unavailable HOY ., DR REINOSO Primary Care Unavailable PAY ., DR STILL Admitting Unavailable PAY ., DR STILL Attending Unavailable ZIEBER, DR RUSSELL Goss Consulting Unavailable PAY ., DR STILL Consulting Unavailable HAWKINS ., DR ORTIZ Admitting Unavailable HWAKINS ., DR ORTIZ Consulting Unavailable HAWKINS ., [...] REINOSO Admitting Unavailable HOY ., DR REINOSO Admalphonse Unavailable [...] REINOSO Primary Care Unavailable HOY ., DR ERINOSO Attending Unavailable HOY ., DR REINOSO Admalphonse Unavailable HOY ., DR REINOSO Primary Care Unavailable HOY ., DR REINOSO Consulting Unavailable HOY ., DR REINOSO Attending Unavailable DENILSON AUSTIN Consulting Unavailable HOY ., DR REINOSO Consulting Unavailable HOY ., DR REINOSO Attending Unavailable HOY ., DR REINOSO Primary Care Unavailable HOY ., DR REINOSO Admalphonse Unavailable HAWKINS ., DR ORTIZ Admitting Unavailable HAWKINS ., DR ORTIZ Consulting Unavailable HAWKINS ., DR ORTIZ Attending Unavailable HOY ., DR REINOSO Primary Care Unavailable DANGELOGAVINO Yi Consulting Unavailable KUAYSHA, NAZIA Consulting Unavailable LONI .ENEDINA Attending Unavailable LONI ., ENEDINA Admitting Unavailable [...] REINOSO Admalphonse Unavailable HOY ., DR REINOSO Attending Unavailable HAWKINS ., DR ORTIZ Consulting Unavailable FREDO, NICK Primary Care Unavailable HAWKINS ., DR ORTIZ Admalphonse Unavailable HAWKINS ., DR ORTIZ Attending Unavailable JORDEN ECHOLS Consulting Unavailable SHARP, MARAH Consulting Unavailable MD Arleth Acharya Primary Care Provider [phone] MD Arleth Acharya Referring Provider DO Calderón Attending Provider MD Arleth Acharya Primary Care Provider [phone] DO Antonio Attending Provider [phone] ARLETH ACHARYA M Primary Care Unavailable NETO CONNELL Attending Unav ailable KO, NETO VERDUZCO Attending Unav ailable NETO CONNELL Referring Unav ailable HOY, ARLETH M Primary Care Unavailable DIANA HAWKINS Referring Unavailable HOY, ARLETH M Primary Care Unavailable HOY, ARLETH M Referring Unavailable HOY, ARLETH M Primary Care Unavailable HOY, ARLETH M Primary Care Unavailable BRYAN HANKS Attending Unavailable HOY, ARLETH M Primary Care Unavailable IFRAH, CARISSA Attending Unavailable HOY, ARLETH M Primary Care Unavailable ADRI FRANK Attending Unavailable IFRAH, CARISSA Attending Unavailable CARISSA RG Referring Unavailable HOY, ARLETH M Primary Care Unavailable CARISSA RG Attending Unavailable CARISSA RG Referring Unavailable HOY, ARLETH M Primary Care Unavailable JOHANNAASIA Referring Unavailable HOY, ARLETH M Primary Care Unavailable JOHANNAASIA Referring Unavailable HOY, ARLETH M Primary Care Unavailable FELICE HANKSIMA Attending Unavailable LATONYAFELICEBRYAN Referring Unavailable HOY, ARLETH M Primary Care Unavailable Diana HAWKINS R Attending Unavailable HAWKINS, Diana R Attending Unavailable HAWKINS, Diana R Attending Unavailable Hoy, Arleth Referring Unavailable ELIZABETH VACA Attending Unavailable HAWKINSDiana R Admitting Unavailable HAWKINS, Diana R Attending Unavailable Diana HAWKINS R Referring Unavailable Diana HAWKINS R Attending Unavailable MD Carissa Pettit V Attending Provider Carissa Pettit V Attending Unavailable Carissa Pettit V Admitting Unavailable Rianna Antonio Attending Unavailable Rianna Antonio Admitting Unavailable Hoy, Arleth M Primary Care Unavailable Osiris Calderón Attending Unavail able Osiris Calderón Admitting Unavail able Hoy, Arleth M Referring Unavailable Hoy, Arleth M Primary Care Unavailable DAISY BROWN Referring Unavailable HOY, ARLETH M Primary Care Unavailable ARJUN MINER Attending Unavailable ARJUN MINER Attending Unavailable RUKHSANA MILLER Attending Unavailable RUKHSANA MILLER Attending Unavailable ARJUN MINER Referring Unavailable RUKHSANA MILLER Attending Unavailable ARJUN MINER Attending Unavailable Allergies Allergy Classification Reported Allergen(s) Allergy Type Date of Onset Reaction(s) Facility Corticosteroids (1 source) Desonide; Translations: [DESONIDE] Drug Allergy 01-09-20 21 [facility] NSAIDs (2 sources) Ketorolac; Translations: [ketorolac] Drug Allergy 04-09-20 17 Unknown (qualifier value) [facility] Opioid Agonists (2 sources) Meperidine; Translations: [meperidine] Drug Allergy 04-09-20 17 [facility] Prochlorperazine (2 sources) Prochlorperazi ne; Translations: [prochlorperaz ine] Drug Allergy 08-14-20 23 Hallucinations (finding) [facility] (8 sources) ketorolac; Translations: [Toradol] Drug Allergy 05-29-20 15 Unknown (qualifier value) [facility] Repository (6 sources) meperidine; Translations: [Demerol HCl] Drug Allergy [facility] Repository (2 sources) Meperidine Drug Allergy 08-01-20 13 [facility] Repository (1 source) Desonide Drug Allergy [facility] Repository (5 sources) Ketorolac; Translations: [ketorolac] Drug Allergy 11-22-19 22 Unknown Reaction [facility] (5 sources) Meperidine; Translations: [meperidine] Drug Allergy 08-01-20 13 Unknown Reaction [facility] (4 sources) Prochlorperazi ne; Translations: [prochlorperaz ine] Drug Allergy 02-12-20 23 Hallucinations (finding) [facility] (1 source) No Known Medication Allergies; Translations: [No Known Medication Allergies] Propensity to adverse reactions (disorder) [facility] Repository Encounters Encounter Date Encounter Type Care Provider Facility Start: 05-01-2024 End: 05-03-2024 [facility] Start: 03-22-2024 End: 03-22-2024 Departed Referred MD Arleth Acharya Work Phone: [facility] Start: 03-22-2024 End: 03-22-2024 ambulatory MD Arleth Achraya Work Phone: [facility] Work Phone: Start: 03-17-[address] [facility] Start: 03-07-2024 End: 03-08-2024 ambulatory ELIZABETH VACA Facility:[facility] Start: 03-07-2024 End: 03-07-2024 Patient encounter procedure ELIZABETH VACA [facility] Start: 03-07-2024 End: 03-07-2024 Emergency department patient visit [facility] Start: 03-06-2024 End: 03-07-2024 Emergency department patient visit ARLETH M Rusty [facility] Start: 02-15-2024 End: 02-16-2024 ambulatory ENGLEWOOD Jacqueline [facility] Start: 02-08-2024 End: 02-09-2024 ambulatory DIANAATUL HAWKINS [facility] Start: 02-07-2024 ambulatory Diana HAWKINS [facility] ty:[facility] Start: 01-06-2024 End: 01-06-2024 ambulatory MD Arleth Acharya Work Phone: [facility] Work Phone: Start: 01-06-2024 End: 01-06-2024 Patient encounter procedure MD Arleth Acharya Work Phone: [facility] Work Phone: Start: 12-24-[address] [facility] Start: 12-10-2023 End: 12-11-2023 Emergency department patient visit NETO CONNELL [facility] Start: 11-19-2023 End: 11-20-2023 ambulatory ASIA [facility] Start: 11-08-2023 End: 11-09-2023 ambulatory [facility] Start: 10-28-2023 ambulatory RUKHSANA MILLER [facility] Start: 10-19-2023 ambulatory Diana Mcclure ty:[facility] Start: 10-14-2023 End: 10-14-2023 Emergency department patient visit ARLETH ACHARYA [facility] Start: 10-14-2023 End: 10-15-2023 Emergency department patient visit CARISSA RG [facility] Start: 10-13-2023 End: 10-15-2023 Emergency department patient visit [facility] Start: 10-12-2023 End: 10-13-2023 ambulatory Diana HAWKINS Facility:[facility] Start: 10-12-2023 End: 10-12-2023 Patient encounter procedure Diana HAWKINS [facility] Start: 09-20-2023 ambulatory Diana HAWKINS Facility :[facility] Start: 09-16-2023 ambulatory Diana Mcclure ty:[id number] Start: 09-13-2023 End: 09-14-2023 ambulatory Diana HAWKINS Facility:[facility] Start: 09-13-2023 End: 09-13-2023 Patient encounter procedure Diana HAWKINS [facility] Start: 08-19-2023 ambulatory [facility] Start: 07-20-2023 End: 07-20-2023 ambulatory [facility] Start: 07-20-2023 End: 07-20-2023 ambulatory [facility] Start: 06-28-2023 ambulatory Osiris Calderón Facility:[facility] Start: 06-01-2023 End: 06-01-2023 ambulatory ARJUN [facility] Start: 05-28-2023 End: 05-28-2023 ambulatory MD Arleth Acharya Work Phone: [facility] Work Phone: Start: 05-28-2023 End: 05-28-2023 Registered Recurring MD Arleth Acharya Work Phone: [facility] Work Phone: Start: 01-25-2023 End: 01-25-2023 ambulatory GENNA HEATON Facility:[facility] Start: 01-21-2023 End: 01-22-[address] ARLETH ACHARYA . Facility:[facility] Start: 01-04-2023 End: 01-04-2023 Patient encounter procedure Diana HAWKINS [facility] Start: 10-10-[address] ARLETH ACHARYA . Facili ty:[facility] Start: 10-06-2022 End: 10-06-[address] ARLETH ACHARYA . Facility:[facility] Start: 09-30-2022 End: 10-01-[address] ARLETH ACHARYA . Facility:[facility] Start: 09-21-2022 End: 09-21-[address] ARLETH ACHARYA . Facility:[facility] Start: 08-27-2022 Encounter for preprocedural laboratory examination DR DIANA HAWKINS . [facility] Start: 08-27-2022 End: 08-27-[address] [...] encounter procedure Diana HAWKINS [facility] Start: 06-11-[address] Facility :[facility] Start: 06-09-2022 End: 06-11-[address] Facility:[facility] Start: 06-03-2022 End: 06-03-2022 Emergency department patient visit ARLETH ACHARYA Facility:[facility] Start: 06-01-2022 End: 06-01-2022 Evaluation and management of inpatient Kevin Lane Facility:[facility] Start: 05-26-2022 End: 05-27-[address] Facility:[facility] Start: 05-26-2022 End: 05-27-2022 Encounter for preprocedural laboratory examination Kevin Lane Facility:[facility] Start: 05-16-2022 ambulatory NICK YOO Facility: Start: 05-01-2022 End: 05-02-2022 ambulatory NICK YOO Facility: Start: 04-29-2022 End: 04-29-2022 ambulatory ENEDINA IVEY . Facility: Start: 04-16-2022 End: 04-17-[address] ARLETH ACHARYA . Facility: Start: 04-07-2022 End: 04-08-[address] Facility:[facility] Start: 03-24-2022 End: 03-25-2022 ambulatory REFERRED SELF Facility:[facility] Start: 02-12-2022 End: 02-13-[address] Facility:[facility] Start: 01-09-2022 End: 01-10-2022 ambulatory REFERRED SELF Facility:[facility] Start: 12-26-2021 End: 12-27-2021 ambulatory REFERRED SELF Facility:[facility] Start: 12-09-2021 End: 12-10-2021 ambulatory REFERRED SELF Facility:[facility] Start: 10-30-2021 End: 10-31-2021 ambulatory Kevindarrel Nassaring Facility:[facility] Start: 10-11-2021 End: 11-11-2021 ambulatory Kevin Rameyhling Facility:[facility] Start: 10-07-2021 End: 10-08-2021 ambulatory Kevin Rameyhling Facility:[facility] Start: 10-06-2021 End: 10-11-2021 ambulatory Kevindarrel Nassaring Facility:[facility] Start: 08-12-2021 End: 08-13-2021 ambulatory REFERRED SELF Facility:[facility] Start: 2017 End: 12-31-2017 Ambulatory ZHANE W TAMEZ [facility] Start: 11-18-2017 End: 11-19-2017 Ambulatory ZHANE W TAMEZ Facility:[facility] Start: 10-28-2017 End: 10-29-2017 Ambulatory Rima Sparrow Facility:[facility] Start: 10-14-2017 End: 10-15-2017 Ambulatory ZHANE W TAMEZ Facility:[facility] Start: 09-16-2017 End: 09-17-2017 Ambulatory ZHANE W TAMEZ Facility:[facility] Start: 06-24-2017 Ambulatory ZHANE W TAMEZ Facility :[facility] Start: 04-20-2017 End: 04-21-2017 Ambulatory ZHANE W TAMEZ Facility:[facility] Immunizations Immunization Date Immunization Notes Care Provider [facility] 07-29-2022 influenza virus vacc ine, unspecified formulation ELIZABETH VACA [facility] 07-29-2022 SARS-CoV-2 (COVID-19 ) [id number] ELIZABETH VACA [facility] 10-08-2021 SARS-CoV-2 (COVID-19 ) mRNA BNT-162b2 vax Diana HAWKINS [facility] 01-30-2021 SARS-CoV-2 (COVID-19 ) mRNA BNT-162b2 vax Diana HAWKINS [facility] 01-09-2021 SARS-CoV-2 (COVID-19 ) mRNA BNT-162b2 vax Diana HAWKINS [facility] 07-11-2020 influenza virus vacc ine, unspecified formulation Diana HAWKINS [facility] 07-03-2020 influenza virus vacc ine, unspecified formulation Diana HAWKINS [facility] 07-18-2019 influenza virus vacc ine, unspecified formulation Dianaatul HAWKINS [facility] 07-08-2018 influenza virus vacc ine, unspecified formulation Dianaatul HAWKINS [facility] 01-01-2016 pneumococcal polysaccharide vaccine, 23 valent Diana HAWKINS [facility] 09-17-2013 influenza virus vacc ine, unspecified formulation Dianaatul HAWKINS [facility] 07-10-2011 tetanus toxoid, redu demar diphtheria toxoid, and acellular pertussis vaccine, adsorbed Diana HAWKINS [facility] Medications Current Medications Medication Drug Class(es) Dates Sig (Normalized) Sig (Original) acetaminophen 325 mg / HYDROcodone bitartrate 5 mg oral tablet (6 sources) Opioid Agonist Start: 09-24-2023 Pendleton 325 mg-5 mg oral tablet 1 tab(s), Oral, q12hr for pain, 20 tab(s), Refill(s) 0, 1 to 2 tabs every 4 to 6 hours as needed for pain, Pain, [id number], 167, cm, 09/13/23 12:07:00 EST, Height/Length Dosing, 70.5, kg, 09/13/23 12:07:00 EST, Weight Dosing Start Date: 09/24/23 Status: Ordered Start: 05-27-2023 take 1 tablet by mary th twice daily Hydrocodone-Acetaminophen Active 1 TAB P O Twice daily May 27, 2023 12:00am Start: 07-27-2022 Pendleton 325 mg-5 mg oral tablet 1 tab(s), Oral, BID Pain 8-10, 20 tab(s), Refill(s) 0, [id number], 167, cm, 06/29/22 9:28:00 EDT, Height/Length Dosing, 69, kg, 06/29/22 9:28:00 EDT, Weight Dosing Start Date: 07/27/22 Status: Ordered Start: 06-29-2022 take 1 tablet by mary th every six hours Pendleton 325 mg-5 mg oral tablet tab(s), Or al, q6hr, Refill(s) 0 Start Date: 06/29/22 Status: Ordered Air Cast (2 sources) Start: 01-06-2024 Air Cast Active 0 .Route 1 January 06, 2024 12:00am As directed amitriptyline hydrochloride 50 mg oral tablet (8 sources) Tricyclic Antidepressant Start: 05-27-2023 take 50 mg by mouth once daily at bedtime Amitriptyline Active 50 MG PO Daily at bedtime May 27, 2023 12:00am Start: 06-29-2022 take 1 mg by mouth o nce daily at bedtime amitriptyline 25 mg Tab mg tab(s), Oral, Once a day (at bedtime), Refills(s) 0 Start Date: 06/29/22 Status: Ordered calcium acetate (5 sources) Start: 06-29-2022 calcium acetate mg, Oral, Refills(s) 0 Start Date: 06/29/22 Status: Ordered calcium carbonate 1500 mg / cholecalciferol 200 unt oral tablet (3 sources) Vitamin D Start: 05-27-2023 take 1 tablet by mouth once daily Calcium Carbonate-Vitami n D3 (Calcium + D) 600 mg-5 mcg (200 unit) Tablet Active 1 TAB PO Daily May 27, 2023 12:00am cephalexin 500 mg oral capsule (1 source) Cephalosporin Antibacterial Start: 10-06-2023 take 1 capsule by mouth every twelve hours Keflex 500 mg Cap 500 mg = 1 cap(s), Oral, q12hr, # 20 cap(s), Refills(s) 0, Pharmacy: [facility] #[id number], 167, cm, 09/13/23 12:07:00 EST, Height/Length Dosing, 70.5, kg, 09/13/23 12:07:00 EST, Weight Dosing Start Date: 10/06/23 Status: Ordered citalopram 40 mg oral tablet (2 sources) Serotonin Reuptake Inhibitor Start: 10-23-2014 take 40 mg by mouth once daily Celexa 40 mg, Oral, Daily, Refills(s) 0, Depression Start Date: 10/23/14 Status: Ordered gabapentin 300 mg oral capsule (3 sources) Anti-epileptic Agent Start: 03-07-2024 take 1 capsule by mouth once daily gabapentin 300 mg Cap 300 mg = 1 cap(s), Oral, Daily, Refills(s) 0 Start Date: 03/07/24 Status: Ordered Start: 01-06-2024 Gabapentin Act zohaib MG PO January 06, 2024 12:00am metoclopramide 10 mg oral tablet (3 sources) Dopamine-2 Receptor Antagonist Start: 05-27-2023 Metoclopramide Hcl (Reglan) 10 mg Tablet Active 10 MG PO As Directed May 27, 2023 12:00am Multivitamin (Multiple Vitamin) Tablet (3 sources) Start: 05-27-2023 take 1 tablet by mouth once daily Multivitamin (Multiple Vitamin) Tablet Active 1 TAB PO Daily May 27, 2023 12:00am Multivitamin preparation (5 sources) Start: 06-29-2022 multivitamin Daily, Refill(s) 0 Start Date: 06/29/22 Status: Ordered oxyCODONE hydrochloride 5 mg oral tablet (2 sources) Opioid Agonist Start: 09-13-2023 oxyCODONE 5 mg Tab Refills(s) 0 Start Date: 09/13/23 Status: Ordered pantoprazole 40 mg delayed release oral tablet (8 sources) Proton Pump Inhibitor Start: 05-27-2023 take 1 tablet by mouth once daily Pantoprazole (Protonix) 40 mg Tablet,Delayed Release (Dr/Ec) Active 40 MG PO Daily May 27, 2023 12:00am Start: 10-23-2014 take 40 mg by mouth once daily pantoprazole 40 mg, Oral, Daily, Refills(s) 0, Control of stomach acid Start Date: 10/23/14 Status: Ordered promethazine hydrochloride 25 mg oral tablet (8 sources) Phenothiazine Start: 05-27-2023 take 25 mg by mouth every four to six hours Promethazine Active 25 MG PO EVERY 4-6 HOURS May 27, 2023 12:00am Start: 06-29-2022 take 1 mg rectal rou te every six hours promethazine 25 mg Supp mg supp, Rectal, q6hr, Refills(s) 0 Start Date: 06/29/22 Status: Ordered sucralfate 1000 mg oral tablet (3 sources) Aluminum Complex Start: 05-27-2023 take 1 tablet by mouth four times daily Sucralfate (Carafate) 1 gram Tablet Active 1 GM PO Four times daily May 27, 2023 12:00am SUMAtriptan 100 mg oral tablet (3 sources) Serotonin-1b and Serotonin-1d Receptor Agonist Start: 03-07-2024 Imitrex 100 mg Tab 100 mg = 1 tab(s), Oral, as needed for Migraine, Refills(s) 0 Start Date: 03/07/24 Status: Ordered Start: 09-13-2023 SUMAtriptan 10 0 mg Tab Refills(s) 0 Start Date: 09/13/23 Status: Ordered tiZANidine 4 mg oral tablet (8 sources) Central alpha-2 Adrenergic Agonist Start: 05-27-2023 take 8 mg by mouth once daily at bedtime Tizanidine Active 8 MG PO Daily at bedtime May 27, 2023 12:00am Start: 06-29-2022 take 1 mg by mouth t hree times daily Zanaflex 4 mg oral capsule mg cap(s), Oral, TID, Refills(s) 0 Start Date: 06/29/22 Status: Ordered topiramate 50 mg oral tablet (2 sources) Start: 01-06-2024 Topiramate Act zohaib MG PO January 06, 2024 12:00am vitamin b12 1 mg/ml injectable solution (8 sources) Vitamin B12 Start: 05-27-2023 inject 1000 ug by intramuscular injection every 30 days Cyanocobalamin (Vitamin B-12) Active 1000 MCG IM Q30D May 27, 2023 12:00am Start: 06-29-2022 Vitamin B12 Re fills(s) 0 Start Date: 06/29/22 Status: Ordered Completed/Discontinued Medications Medication Drug Class(es) Dates Sig (Normalized) Sig (Original) ferrous sulfate 325 mg oral tablet (3 sources) Start: 05-27-2023 End: 05-28-2023 take 325 mg by mouth once daily Ferrous Sulfate Discontinued 325 MG PO Daily May 27, 2023 12:00am May 28, 2023 11:26am hyoscyamine sulfate 0.125 mg sublingual tablet (3 sources) Start: 05-27-2023 End: 05-28-2023 take 0.125 mg under the tongue every six hours Hyoscyamine Sulfate Discontinued 0.125 MG SUBLINGUAL Q6H May 27, 2023 12:00am May 28, 2023 11:06am Payers Date Payer Category Payer Unknown [id number] 2017 Self-pay 2017 Unknown 2012 Unknown [id number] 2012 Unknown [id number] 1980 Unknown [id number] 1980 Unknown [id number] 1981 Unknown [id number] .[id number] [id number] 1981 Unknown [id number] .[id number] [id number] 1981 Unknown [id number] .[id number] [id number] 1981 Unknown [id number] .16.8 [id number] 1981 Unknown [id number] 2.16.8 [id number] 1981 Unknown [id number] 2.16.8 [id number] 1981 Unknown [id number] 2.16.8 [id number] 1981 Unknown [id number] 2.16.8 40.1.661845.3.579.2.647 1980 Unknown [id number] 2.16.8 40.1.374039.3.579.2.647 1980 Unknown [id number] 2.16.8 40.1.047581.3.579.2.647 1981 Unknown [id number] 2.16.8 40.1.910758.3.579.2.647 1981 Unknown [id number] 2.16.8 40.1.950598.3.579.2.647 1981 Unknown [id number] 2.16.8 40.1.438948.3.579.2.647 1981 Unknown [id number] 2.16.8 40.1.878982.3.579.2.647 1981 Unknown [id number] 2.16.84 0.1.474569.3.579.2.593 1981 Unknown [id number] 2.16.84 0.1.848920.3.579.2.593 1981 Unknown [id number] 2.16.84 0.1.391116.3.579.2.593 1981 Unknown [id number] 2.16.84 0.1.475342.3.579.2.593 1981 Unknown [id number] 2.16.84 0.1.141516.3.579.2.593 1981 Unknown [id number] 2.16.84 0.1.449047.3.579.2.593 1981 Unknown [id number] 2.16.84 0.1.413899.3.579.2.593 1981 Unknown [id number] 2.16.84 0.1.042543.3.579.2.593 1981 Unknown [id number] 2.16.84 0.1.489804.3.579.2.593 1981 Unknown [id number] 2.16.84 0.1.248677.3.579.2.593 1981 Unknown [id number] 2.16.84 0.1.187679.3.579.2.593 1981 Unknown [id number] 2.16.84 0.1.481749.3.579.2.593 1981 Unknown [id number] 2.16.84 0.1.108915.3.579.2.593 1981 Unknown [id number] 2.16.84 0.1.370689.3.579.2.593 1981 Unknown [id number] 2.16.84 0.1.089127.3.579.2.593 1981 Unknown [id number] 2.16.84 0.1.205724.3.579.2.593 1981 Unknown [id number] 2.16.84 0.1.977251.3.579.2.593 1981 Unknown [id number] 2.16.84 0.1.224970.3.579.2.593 1981 Unknown [id number] 2.16.8 40.1.244240.3.579.2.1286 1981 Unknown [id number] 2.16.8 40.1.528409.3.579.2.1286 1981 Unknown [id number] 2.16.8 40.1.106905.3.579.2.1286 1981 Unknown [id number] 2.16.8 40.1.536600.3.579.2.1286 1981 Unknown [id number] 2.16.8 40.1.174933.3.579.2.1286 1981 Unknown [id number] 2.16.8 40.1.373295.3.579.2.1285 1981 Unknown [id number] 2.16.8 40.1.148703.3.579.2.1285 1981 Unknown [id number] 2.16.8 40.1.974197.3.579.2.1285 1981 Unknown [id number] 2.16.8 40.1.087494.3.579.2.1285 1981 Unknown [id number] 2.16.84 0.1.569013.3.579.2.1285 1981 Unknown [id number] 2.16.84 0.1.965274.3.579.2.1285 1981 Unknown [id number] 2.16.84 0.1.094330.3.579.2.1285 1981 Unknown [id number] 2.16.84 0.1.669550.3.579.2.1285 1981 Unknown [id number] 2.16.8 40.1.416539.3.579.2.7 1981 Unknown [id number] 2.16.8 40.1.928729.3.579.2.7 1981 Unknown [id number] 2.16.8 40.1.629436.3.579.2.727 1981 Unknown [id number] 2.16.8 40.1.857100.3.579.2.727 1981 Unknown [id number] 2.16.8 40.1.873509.3.579.2.727 1981 Unknown [id number] 2.16.8 40.1.054287.3.579.2.173 1959 Self-pay [id number] Unknown [id number] 2.16.8 40.1.398626.3.579.2.531 Unknown [id number] 2.16.8 40.1.723704.3.579.2.531 Unknown [id number] 2.16.8 40.1.194848.3.579.2.531 Plan of Treatment Date Care Activity Detail Author Start: 05-28-2023 [facility] Iron binding capacit y [Mass/volume] in Serum or Plasma [facility] Iron saturation [Mas s Fraction] in Serum or Plasma [facility] Problems Active Problems Problem Classification Problem Date Documented Da te Episodic/Chronic Abdominal pain (20 sources) Abdominal pain; Translations: [Unspecified abdominal pain] Onset: 04-29-2022 Episodic Anxiety disorders (6 sources) Anxiety; Translations: [Anxiety disorder, unspecified] Onset: 09-10-2022 06-26-2022 Chronic Calculus of urinary tract (17 sources) Kidney stone; Translations: [Calculus of kidney] Onset: 06-29-2022 Episodic Coagulation and hemorrhagic disorders (1 source) Hereditary factor VIII deficiency; 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] Onset: 06-28-2023 Chronic Complication of device; implant or graft (5 sources) Pain due to internal orthopedic prosthetic devices, implants and grafts, initial encounter; Translations: [PAIN DUE TO INTERNAL ORTHOPEDIC PROSTH DEV/GRFT, INIT] Onset: 06-01-2022 Episodic E Codes: Fall (1 source) Unspecified fall, initial encounter; Translations: [Unspecified fall, initial encounter] Onset: 01-06-2024 Episodic Esophageal disorders (1 source) Esophageal disorders; Translations: [Gastro-esophageal reflux disease with esophagitis, without bleeding] Onset: 11-08-2023 Essential hypertension (1 source) Essential (primary) hypertension; Translations: [ESSENTIAL PRIMARY HYPERTENSION] Onset: 01-27-2023 Chronic Gastritis and duodenitis (1 source) Gastritis, unspecified, without bleeding; Translations: [Gastritis, unspecified, without bleeding] Onset: 12-10-2023 Episodic Genitourinary congenital anomalies (2 sources) Congenital occlusion of ureteropelvic junction; 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, unspecified] Onset: 08-05-2022 Chronic Genitourinary symptoms and ill-defined conditions (20 sources) Blood in urine; Translations: [Gross hematuria] Onset: 06-29-2022 Episodic Mood disorders (6 sources) Depressive disorder; Translations: [Major depressive disorder, [...] Onset: 12-09-2021 Chronic Other aftercare (1 source) half-way (current) use of aspirin; Translations: [ETCHER ENAMELING (CURRENT) USE OF ASPIRIN] Onset: 06-03-2022 Episodic Other aftercare (2 sources) Other terminal gauger (current) drug therapy; Translations: [OTHER ETCHER ENAMELING (CURRENT) DRUG THERAPY] Onset: 08-12-2021 Episodic Other and unspecified benign neoplasm (1 source) Benign neoplasm of parotid gland; Translations: [Benign neoplasm of parotid gland] Onset: 05-01-2024 Episodic Other connective tissue disease (5 sources) [...] Onset: 07-12-2022 Chronic Other nervous system disorders (1 source) Other acute postprocedural pain; Translations: [OTHER ACUTE POSTPROCEDURAL PAIN] Onset: 06-03-2022 Episodic Other non-traumatic joint disorders (4 sources) Pain in left knee; Translations: [PAIN IN LEFT KNEE] Onset: 06-03-2022 Episodic Other non-traumatic joint disorders (1 source) Effusion, left knee; Translations: [EFFUSION, LEFT KNEE] Onset: 04-07-2022 Episodic Other nutritional; endocrine; and metabolic disorders (5 sources) Morbid obesity 10-24-2014 Chronic Residual codes; unclassified (2 sources) Presence [...] 06-01-2022 Episodic Sprains and strains (2 sources) Sprain of unspecified ligament of left ankle, initial encounter; Translations: [Sprain of ankle, unspecified site] 01-06-2024 Episodic Unclassified (1 source) C/O POST OP RECHECK - LEFT KNEE. Onset: 06-03-2022 Unclassified (1 source) C/O POST OP RECHECK - LEFT KNEE Onset: 06-03-2022 Unclassified (5 sources) Asymptomatic microscopic hematuria 06-29-2022 Unclassified (1 source) PERSONAL HISTORY OF COVID-19; Translations: [PERSONAL HISTORY OF COVID-19] Onset: 01-27-2023 Unclassified (4 sources) CONTACT W/AND (SUSP) EXPOS COVID-19; Translations: [CONTACT W/AND (SUSP) EXPOS COVID-19] Onset: 08-27-2022 Unclassified (1 source) COUGH, UNSPECIFIED; Translations: [COUGH, UNSPECIFIED] Onset: 09-24-2022 Unclassified (1 source) Abdominal Pain, Vomitting Onset: 12-10-2023 Unclassified (2 sources) Presence of neurostimulator; Translations: [Presence of neurostimulator] Onset: 05-04-2023 Urinary tract infections (4 sources) Urinary tract infection, site not specified; Translations: [UTI SITE NOT SPECIFIED] Onset: 01-21-2023 Episodic Viral infection (1 source) COVID-19; Translations: [COVID-19] Onset: 10-09-2022 Past or Other Problems Problem Classification Problem Date Documented Da te Episodic/Chronic Complications of surgical procedures or medical care (3 sources) Iron deficiency anemia; Translations: [Other complications of other bariatric procedure] Onset: 06-28-2023 10-27-2023 Episodic Deficiency and other anemia (1 source) Iron deficiency anemia, unspecified; Translations: [Iron deficiency anemia, unspecified] Onset: 11-08-2023 Episodic Deficiency and other anemia (1 source) Other iron deficiency anemias; Translations: [Other iron deficiency anemias] Onset: 06-28-2023 Episodic Fluid and electrolyte disorders (1 source) [...] [ACUTE RECURRENT FRONTAL SINUSITIS] Onset: 10-09-2022 Episodic Unclassified (1 source) CONTACT W/AND (SUSP) EXPOS COVID-19; Translations: [CONTACT W/AND (SUSP) EXPOS COVID-19] Onset: 10-06-2022 Procedures Date Procedure Procedure Detail Performing Clinician Start: 01-06-2024 X-ray of left ankle MD Arleth Acharya Work Phone: Start: 10-12-2023 Cystoscopic removal of ureteric stent ELIZABETH STEPH Start: 09-16-2023 Cystoscopic laser lithotripsy of ureteric calculus ELIZABETH VACA Start: 08-27-2022 Cystoscopic removal of ureteric stent Diana HAWKINS Start: 07-23-2022 Cystoscopic insertio n of ureteric stent Diana HAWKINS Start: 10-07-[address] Comment on above: Performed By: #### 3 [id number] #### [address] Appendectomy Diana HAWKINS Arthroplasty of knee Diana HAWKINS Arthroscopy of knee Diana HAWKINS Bypass of stomach Diana GOOD TERS Cholecystectomy Diana AGUIRRE RS Hysterectomy Diana HAWKINS Implantation of temp orary spinal cord stimulator Diana HAWKINS Tonsillectomy Diana HAWKINS Results Test Name Value Interpretation Reference Range Facility Refillon 05-09-2024 Refill [id number] Madyson Moore 1980 F Date Provider Department Center 05/09/2024 RUKHSANA ESPINOZA [facility] Family History Problem Relation Age of Onset Brain cancer Mother Breast cancer Sister Kidney cancer Maternal Grandmother Prostate cancer Paternal Grandfather Cancer Father Cancer Sister Family Status - Relation Status Age at Mother Sister Maternal Grandmother Paternal Grandfather Father Sister Reason for Visit and Comments: Med Refill [[id number]] Normal [facility] Refillon 04-07-2024 Refill [id number] Madyson Moore ma 1980 F Date Provider Department Center 04/07/2024 RUKHSANA ESPINOZA [facility] Family History Problem Relation Age of Onset Brain cancer Mother Breast cancer Sister Kidney cancer Maternal Grandmother Prostate cancer Paternal Grandfather Cancer Father Cancer Sister Family Status - Relation Status Age at Mother Sister Maternal Grandmother Paternal Grandfather Father Sister Reason for Visit and Comments: Med Refill [[id number]] Normal [facility] Nico 03-22-2024 L Specimen: [id number] Received: 03/23/24 Status: JOHNATHON Req Num: [id number] Spec Type: Cytology Subm Dr: Carissa Pettit MD Tissues: A FNA SLIDES NOPATH (RT PAROTID MASS) Procedures: HE/2, p63, Cyto Int and Re, p40, PAPSTN/9 Age/ Patient Sex Location Account Attending Physician TeresaElvi L 43/F LABELL [id number] Carissa Pettit MD SPEC NUM: [id number] RECD: 03/23/24 STATUS: SOUT REQ NUM: [id number] JHONATAN: 03/22/24- DR: Carissa Pettit MD ENTERED: 03/23/[address] [facility] [address]: Leann mAaya MD SPEC TYPE: Cytology DEPT: RHODA IAJATINDER ENTERED BY: [id number] RECV BY: [id number] ORDERED: HE/2, p63, Cyto Int and Re, p40, PAPSTN/9 ORDERED: HE/2, p63, Cyto Int and Re, p40, PAPSTN/9 Supplemental Report Addendum 1 Entered: 03/29/24 Supplemental for findings of additional immunostain without a change of initial diagnosis: -The p40 and p63 immunostain with appropriate control are not contributory, due to the scant material of the cell block section in the deeper level of sections for IHC CPT: 66029, 89629 Addendum Signed (signature on file) Luis F Roldan MD 03/29/242032 Pathological Diagnosis Right parotid gland mass, FNA cytology: -No evidence of malignant cells -Minute small irregular clusters of stromal or spindle cells with occasionally admixed plasmacytoid cells, and occasionally small intermixed clusters of small epithelioid cells, and often with of the attached pale bluish matrix material -There are only scant single benign and nondescript cells and 1 tiny cellular cluster in the Specimen: [id number] Received: 03/23/24 Status: JOHNATHON Damon Num: [id number] Spec Type: Cytology Subm Dr: Carissa Pettit MD Tissues: A FNA SLIDES NOPATH (RT PAROTID MASS) Procedures: HE/2, p63, Cyto Int and Re, p40, PAPSTN/9 Patient: Elvi Moore [id number] (Continued) Specimen: [id number] Received: 03/23/24 (Continued) Pathological Diagnosis (Continued) Signed (signature on file) Luis F Roldan MD 03/29/24 1124 Specimen: [id number] Received: 03/23/24 Status: JOHNATHON Damon Num: [id number] Spec Type: Cytology Subm Dr: Carissa Pettit MD Tissues: A FNA SLIDES NOPATH (RT PAROTID MASS) Procedures: HE/2, p63, Cyto Int and Re, p40, PAPSTN/9 Patient: Elvi Moore [id number] (Continued) Specimen: [id number] Received: 03/23/24 (Continued) Pathological Diagnosis (Continued) ThinPrep smear, and is not contributory -There is also only very rare tiny small stromal fragments of scant cellularity in the cell block section, and is also not contributory for additional assessment -Overall findings is compatible with Alejo system Category 4A: Benign neoplasm, encompassing pleomorphic adenoma Gross Description Received is <1 ml very pale pink fixed in Cytolyt fluid for cytology said to have been obtained as right parotid mass. 1 ThinPrep smear and cell block preparations are prepared for microscopic examination. Also received are 8 spray fixed smeared slides to be stained pap for microscopic examination.(CC/ct) CPT Codes 61078 72072 Specimen: [id number] Received: 03/23/24 Status: JOHNATHON Damon Num: [id number] Spec Type: Cytology Subm Dr: Carissa Pettit MD Tissues: A FNA SLIDES NOPATH (RT PAROTID MASS) Procedures: HE/2, p63, Cyto Int and Re, p40, PAPSTN/9 Patient: Elvi Moore [id number] (Continued) Signed (signature on file) Luis F Roldan MD 03/29/24 1124 Normal [facility] Follow-Upon 03-17-2024 Follow-Up [id number] Madyson Moore 1980 F Date Provider Department Center 03/17/2024 RUKHSANA ESPINOZA [facility] Family History Problem Relation Age of Onset Brain cancer Mother Breast cancer Sister Kidney cancer Maternal Grandmother Prostate cancer Paternal Grandfather Cancer Father Cancer Sister Family Status - Relation Status Age at Mother Sister Maternal Grandmother Paternal Grandfather Father Sister Level of Service:41926 FL OFFICE/OUTPATIENT ESTABLISHED LOW MDM 20 MIN Reason for Visit and Comments: Knee Pain [[id number]] - Left knee pain Normal [facility] [place] 03-08-2024 Screens [id number] Normal [facility] CT ABDOMEN AND PELVIS WO CON Ton 03-07-2024 CT ABDOMEN AND PELVIS WO CONT CT ABDOMEN AND PELVIS WO CONT CLINICAL INFORMATION: Abdominal/flank pain, stone suspected. Acute abdominal pain radiating to the back TECHNIQUE: CT Abdomen and Pelvis without intravenous contrast. All CT scans at this facility use dose modulation, iterative reconstruction, and/or weight based dosing when appropriate to reduce radiation dose to as low as reasonably achievable. COMPARISON: 12/10/2023 FINDINGS: No pleural or pericardial effusion at the lung bases. No lower lung consolidation is seen. Postoperative changes of the stomach. The liver, adrenal glands, pancreas and spleen are grossly unremarkable in noncontrast evaluation. Aorta is normal caliber. Small bowel is nondilated. There is no renal collecting system dilatation. No obstructing renal or ureteral calculus. Streak artifact from spinal stimulator device. No free pelvic fluid. Urinary bladder is decompressed. No evidence of enlarged pelvic lymph nodes. Degenerative changes of lumbar spine. No vertebral body height loss. IMPRESSION: * No obstructing renal or ureteral calculus appreciated. Finalized by Martinez Schmidt MD on 03/06/2024 11:46 PM Normal [facility] Patient Educationon 03-07-20 24 Patient Education Nephrology Dietary Guidelines to Help Prevent Kidney Stones Kidney stones are deposits of minerals and salts that form inside your kidneys. Your risk of developing kidney stones may be greater depending on your diet, your lifestyle, the medicines you take, and whether you have certain medical conditions. Most people can lower their risks of developing kidney stones by following these dietary guidelines. Your dietitian may give you more specific instructions depending on your overall health and the type of kidney stones you tend to develop. What are tips for following this plan? Reading food labels ? Choose foods with no salt added or low-salt labels. Limit your salt (sodium) intake to less than 1,500 mg a day. ? Choose foods with calcium for each meal and snack. Try to eat about 300 mg of calcium at each meal. Foods that contain 200?500 mg of calcium a serving include: ? 8 oz (237 mL) of milk, xklumab-fwyabrypuzpo-hbkc y milk, and calcium-fortifiedfruit juice. Calcium-fortified means that calcium has been added to these drinks. ? 8 oz (237 mL) of kefir, yogurt, and soy yogurt. ? 4 oz (114 g) of tofu. ? 1 oz (28 g) of cheese. ? 1 cup (150 g) of dried figs. ? 1 cup (91 g) of cooked broccoli. ? One 3 oz (85 g) can of sardines or mackerel. Most people need 1,000?1,500 mg of calcium a day. Talk to your dietitian about how much calcium is recommended for you. Shopping ? Buy plenty of fresh fruits and vegetables. Most people do not need to avoid fruits and vegetables, even if these foods contain nutrients that may contribute to kidney stones. ? When shopping for convenience foods, choose: ? Whole pieces of fruit. ? Pre-made salads with dressing on the side. ? Low-fat fruit and yogurt smoothies. ? Avoid buying frozen meals or prepared deli foods. These can be high in sodium. ? Look for foods with live cultures, such as yogurt and kefir. ? Choose high-fiber grains, such as whole-wheat breads, oat bran, and wheat cereals. Cooking ? Do not add salt to food when cooking. Place a salt shaker on the table and allow each person to add their own salt to taste. ? Use vegetable protein, such as beans, textured vegetable protein (TVP), or tofu, instead of meat in pasta, casseroles, and soups. Meal planning ? Eat less salt, if told by your dietitian. To do this: ? Avoid eating processed or pre-made food. ? Avoid eating fast food. ? [...] or seafood. ? When you prepare animal proteins, cut pieces into small portion sizes. For most meat and fish, one serving is about the size of the palm of your hand. ? Eat at least five servings of fresh fruits and vegetables each day. To do this: ? Keep fruits and vegetables on hand for snacks. ? Eat one piece of fruit or a handful of berries with breakfast. ? Have a salad and fruit at lunch. ? Have two kinds of vegetables at dinner. ? You may be told to limit foods that are high in a substance called oxalate. These include: ? Spinach (cooked), rhubarb, beets, sweet potatoes, and [place] chard. ? Peanuts. ? Potato chips, equatorial guinean fries, and baked potatoes with skin on. ? Nuts and nut products. ? Chocolate. ? If you regularly take a diuretic medicine, make sure to eat at least 1 or 2 servings of fruits or vegetables that are high in potassium each day. These include: ? Avocado. ? Banana. ? [place], prune, carrot, or tomato juice. ? Baked potato. ? Cabbage. ? Beans and split peas. Lifestyle ? Drink enough fluid to keep your urine pale yellow. This is the most important thing you can do. Spread your fluid intake throughout the day. ? If you drink alcohol: ? Limit how much you have to: ? 0?1 drink a day for women who are not . ? 0?2 drinks a day for men. ? Know how much alcohol is in your drink. In the [place] one drink equals one 12 oz bottle of beer (355 mL), one 5 oz glass of wine (148 mL), or one 1? oz glass of hard liquor (44 mL). ? Lose weight if told by your health care provider. Work with your dietitian to find an eating plan and weight loss strategies that work best for you. General information ? Talk to your health care provider and dietitian about taking daily supplements. Depending on your health and the cause of your kidney stones, you may be told: ? Do not take high-dose supplements of vitamin C (1,000 mg a day or more). ? To take a calcium supplement. ? To take a daily probiotic supplement. ? To take other supplements such as magnesium, fish oil, or vitamin B6. ? Take agli-yeb-qeiibds and prescription medicines only as told by your health care provider. These include supplements. What foods sh (more content not included)... [facility] [id number] Normal [facility] Urology Office/Clinic Noteon 03-07-2024 Urology Office/Clinic Note Chief Complaint 6 mo f/u HPI Staff PRW pt 3m metabolic work up & KUB S/P Lt Laser Litho & Lt Stent Placement 09/16/23 & Cysto Lt Stent removal 10/12/23 by PRW Stone Analysis 09/16/23 Pt called our office 10/13/23 c/o passing blood clots & severe Lt flank pain. Tamsulosin was sent. Metabolic Work Up 02/15/24 KUB done 03/03/24. Patient denies pain/burning when urinating, denies visible blood History of Present Illness staff HPI reviewed and agree. Review of Systems PHQ Score Initial Depression Screen Score: 0 SCORE no fever, chills, malaise, myalgia. no rash/lesions. no chest pain, palpitations, or SOB. no abdominal pain, nausea, vomiting. no unilateral calf swelling, redness, pain Physical Exam Vitals & Measurements T: 36.6 ?C(Temporal Artery) HR: 87(Peripheral) RR: 16 BP: 124/80 HT: 66 in HT: 167 cm WT: 68.1 kg WT: 149.82 lb BMI: 24.42 General: nontoxic, NAD Mouth: moist mucosa Lungs: normal respiratory effort Cardio: regular rate, good distal perfusion Abdomen: nondistended, no suprapubic distention or tenderness, no CVA tenderness Neurologic: Grossly normal Skin: No rashes or suspicious lesions Assessment/Plan Dr. Hawkins pt BBS 4. 1. Kidney stone (N20.0: Calculus of kidney) S/p L Ureteroscopy/L stent placement 07/23/22 and Repeat L Ureteroscopy/Stone Basket extraction/L stent removal 08/27/22. IVP 12/30/22 [facility] - no renal or ureteral stones id'd. KUB 08/11/23 [facility] - no stones id'd. CT AP wo con 08/12/23 [facility] - nonobstructing 5mm L renal stone. No hydro. CT AP wo con 09/08/23 - 4-5mm L renal stone. No hydro. S/p Cysto/L URS/laser litho/basket extraction/L stent placement 09/16/23. S/p Cysto/ L stent removal 10/12/23. Stone analysis: 60% CaOx Di, 35% [place]. 5% Phos Hydoxyl. KUB 03/03/24 [facility] - Suspect small 4 mm R renal stone. No L renal stones. 24 hr urine 02/15/24 - Low total volume 900 mL otherwise wnl. Serum labs wnl. Reviewed imaging results. Also reviewed metabolic workup, only discrepancy is low urine volume. Recommended pt to increase clear fluid intake, titrate up to 2.5L daily urine produced. -KUB in 1 year -Cont sx monitoring -Increase fluid intake 2. Gross hematuria (R31.0: Gross hematuria) CT AP w IV con 10/01/23 [facility] - No renal mass. S/p Cysto/L stent removal 10/12/23 - No bladder tumors or stones. UA today negative for blood and infection. -Cont routine UAs and sx monitoring. Pt knows to notify the office if she were to experience gross hematuria or clots. Follow-up With When Contact Information STEPH AVITIA, ELIZABETH Yi, URL [address] [facility] [place] [address] [phone] Additional Instructions: 1 yr w/ KUB Patient Education Dietary Guidelines to Help Prevent Kidney Stones Documentation recorded by the joy Hardy accurately reflects the services(s) I performed and decisions made by me. Authenticated by Elizabeth Vaca PA-C on 03/07/2024 16:31:26. I, Kandice Hardy, personally scribed for Elizabeth Vaca PA-C on 03/07/2024 16:29:52. . Problem List/Past Medical History Ongoing Anxiety Asymptomatic microscopic hematuria Depression Extreme obesity Gross hematuria Kidney stone Left flank pain Historical No qualifying data Procedure/Surgical History Cystoscopic removal of ureteric stent (10/12/2023), Cystoscopic laser lithotripsy of ureteric calculus (09/16/2023), Cystoscopic removal of ureteric stent (08/27/2022), Cystoscopic insertion of ureteric stent (07/23/2022), Appendectomy, Arthroplasty of knee, Arthroscopy of knee, Cholecystectomy, Gastric bypass, Hysterectomy, Spinal cord stimulator trial, Tonsillectomy. Medications amitriptyline 25 mg Tab, Oral, Once a day (at bedtime) calcium acetate, Oral gabapentin 300 mg Cap, 300 mg= 1 cap(s), Oral, Daily Imitrex 100 mg Tab, 100 mg= 1 tab(s), Oral multivitamin, Daily [place] 325 mg-5 mg oral tablet, 1 tab(s), Oral, q12hr, PRN pantoprazole, 40 mg, Oral, Daily promethazine 25 mg Supp, Rectal, q6hr tamsulosin 0.4 mg Cap, 0.4 mg= 1 cap(s), Oral, BID Vitamin B12 Zanaflex 4 mg oral capsule, Oral, TID Allergies Compazine (Hallucinations) Demerol HCl Toradol (Unknown) Social History Tobacco Former smoker, quit more than 30 days ago Tobacco Use:. Never Smokeless Tobacco Use:. Cigarettes, Household tobacco concerns: No. Yes, 03/07/2024 Family History Alcoholism: Brother. Drug addiction: Brother. High blood pressure: Father. Kidney disease: Sister. Primary malignant neoplasm of brain: Father. Stroke: Father. Immunizations Vaccine Date Status influenza virus vaccine, inactivated 07/29/2022 Recorded SARS-CoV-2 (COVID-19) mRNAMUL.[id number] 07/29/2022 Recorded SARS-CoV-2 (COVID-19) mRNA BNT-162b2 vax 10/08/2021 Recorded SARS-CoV-2 (COVID-19) mRNA BNT-162b2 vax 01/30/2021 Recorded SARS-CoV-2 (COVID-19) mRNA BNT-162b2 vax 01/09/2021 Recorded influenza virus vaccine, inactivated 07/11/2020 R (more content not included)... Normal [facility] Comment on above: Result Comment: Elec tronically Signed By: ELIZABETH VACA PA-C\.br\Date and Time Signed: 03/07/24 16:31 EDT\.br\Electronically Co-Signed By: Kandice Hardy\.br\Date and Time Co-Signed: 03/07/24 16:30 EDT CBC AND AUTO DIFFon 03-06-20 ABSOLUTE BASOPHIL 0.0 X10E9/L Normal 0.0-0.2 [facility] Comment on above: Performed By: #### C BCA, CMP ####[facility] ([id number])[address] [place] [address] ABSOLUTE NEUTROPHIL 4.5 X10E9/L Normal 1.5-6.[address] [facility] Comment on above: Performed By: #### C BCA, CMP ####[facility] ([id number])[address] [place] [address] Basophils/100 WBC (Bld) 0.3 % Normal [facility] Comment on above: Performed By: #### C GALEN, CMP ####[facility] ([id number])[address] [place] [address] 72064 Eosinophils (Bld) [#/Vol] 0.0 10*3/uL Normal 0.0-0.4 [facility] Comment on above: Performed By: #### C GALEN, CMP ####[facility] ([id number])[address] [place] [address] 34428 Eosinophils/100 WBC (Bld) 0.6 % Normal [facility] Comment on above: Performed By: #### C GALEN, CMP ####[facility] ([id number])[address] [place] [address] 67007 Erythrocyte distribution width (RBC) [Ratio] 14.6 % Normal 11.5-15.0 [facility] Comment on above: Performed By: #### C GALEN, CMP ####[facility] ([id number])[address] [place] [address] 98769 Hematocrit (Bld) [Volume fraction] 39.4 % Normal 35-47 [facility] Comment on above: Performed By: #### C GALEN, CMP ####[facility] ([id number])[address] [place] [address] 44489 Hemoglobin (Bld) [Mass/Vol] 13.1 g/dL Normal 11.7-15.5 [facility] Comment on above: Performed By: #### C GALEN, CMP ####[facility] ([id number])[address] [place] [address] 11344 Lymphocytes (Bld) [#/Vol] 2.0 10*3/uL Normal 1.0-3.5 [facility] Comment on above: Performed By: #### C GALEN, CMP ####[facility] ([id number])[address] [place] [address] 04498 Lymphocytes/100 WBC (Bld) 28.1 % Normal [facility] Comment on above: Performed By: #### C BCA, CMP ####[facility] ([id number])[address] [place] [address] 58990 MCH (RBC) [Entitic mass] 28.2 pg Normal 27-34 [facility] Comment on above: Performed By: #### C BCA, CMP ####[facility] ([id number])[address] [place] [address] 23627 MCHC (RBC) [Mass/Vol] 33.2 g/dL Normal 32-36 [facility] Comment on above: Performed By: #### C BCA, CMP ####[facility] ([id number])[address] [place] [address] 82584 MCV (RBC) [Entitic vol] 85 fL Normal 80-100 [facility] Comment on above: Performed By: #### C BCA, CMP ####[facility] ([id number])[address] [place] [address] 12895 Monocytes (Bld) [#/Vol] 0.6 10*3/uL Normal 0-0.9 [facility] Comment on above: Performed By: #### C BCA, CMP ####[facility] ([id number])[address] [place] [address] 91169 Monocytes/100 WBC (Bld) 8.3 % Normal [facility] Comment on above: Performed By: #### C BCA, CMP ####[facility] ([id number])[address] [place] [address] 49127 Neutrophils/100 WBC (Bld) 62.7 % Normal [facility] Comment on above: Performed By: #### C BCA, CMP ####[facility] ([id number])[address] [place] [address] 22665 Platelet mean volume (Bld) [Entitic vol] 8.3 fL Normal 7-12 [facility] Comment on above: Performed By: #### C BCA, CMP ####[facility] ([id number])[address] [place] [address] 71418 Platelets (Bld) [#/Vol] 279 10*3/uL Normal 150-450 [facility] Comment on above: Performed By: #### C GALEN, CMP ####[facility] ([id number])[address] [place] [address] 11543 RBC COUNT 4.63 X10E12/L Normal 3.80-5.20 [facility] Comment on above: Performed By: #### C GALEN, CMP ####[facility] ([id number])[address] [place] [address] 91091 WBC (Bld) [#/Vol] 7.2 10*3/uL Normal 4.0-11.0 [facility] Comment on above: Performed By: #### C GALEN, CMP ####[facility] ([id number])[address] [place] [address] 17721 COMPREHENSIVE METABOLIC PANE [facility] 03-06-2024 Albumin [Mass/Vol] 4.4 g/dL Normal 3.2-5.3 [facility] Comment on above: Performed By: #### C BCA, CMP ####[facility] ([id number])[address] [place] [address] 15151 ALP [Catalytic activity/Vol] 96 U/L Normal 39-130 [facility] Comment on above: Performed By: #### C BCA, CMP ####[facility] ([id number])[address] [place] [address] 17186 ALT [Catalytic activity/Vol] 16 U/L Normal 0-31 [facility] Comment on above: Performed By: #### C BCA, CMP ####[facility] ([id number])[address] [place] [address], [place] [address] Anion gap [Moles/Vol] 6 mmol/L Normal 5-15 [facility] Comment on above: Performed By: #### C BCA, CMP ####[facility] ([id number])[address] [place] [address], [place] [address] AST [Catalytic activity/Vol] 22 U/L Normal 0-41 [facility] Comment on above: Performed By: #### C BCA, CMP ####[facility] ([id number])[address] [place] [address], [place] [address] Bilirubin [Mass/Vol] 0.4 mg/dL Normal 0.3-1.2 [facility] Comment on above: Performed By: #### C BCA, CMP ####[facility] ([id number])[address] [place] [address] [place] [address] Calcium [Mass/Vol] 8.7 mg/dL Normal 8.5-10.5 [facility] Comment on above: Performed By: #### C BCA, CMP ####[facility] ([id number])[address] [place] [address] [place] [address] Chloride [Moles/Vol] 107 mmol/L Normal 98-109 [facility] Comment on above: Performed By: #### C BCA, CMP ####[facility] ([id number])[address] [place] [address] [place] [address] CO2 [Moles/Vol] 26 mmol/L Normal 22-32 [facility] Comment on above: Performed By: #### C BCA, CMP ####[facility] ([id number])[address] [place] [address], [place] [address] Creatinine [Mass/Vol] 0.64 mg/dL Normal 0.40-1.00 [facility] Comment on above: Result Comment: METH OD TRACEABLE TO IDMS STANDARD Performed By: #### C BCA, CMP ####[facility] ([id number])[address] [place] [address] 08210 eGFR (CKD-EPI) NON-RACE DEPENDENT >90 Normal >59 [facility] Comment on above: Result Comment: Reported eGFR is based on the CKD-EPI 2020 equation that does not use a race coefficient. Performed By: #### C BCA, CMP ####[facility] ([id number])[address] [place] [address] 29486 Glucose [Mass/Vol] 88 mg/dL Normal 65-99 [facility] Comment on above: Performed By: #### C BCA, CMP ####[facility] ([id number])[address] [place] [address] 76463 Potassium [Moles/Vol] 3.6 mmol/L Normal 3.5-5.0 [facility] Comment on above: Performed By: #### C BCA, CMP ####[facility] ([id number])[address] [place] [address] 57384 Protein [Mass/Vol] 8.0 g/dL Normal 6.0-8.0 [facility] Comment on above: Performed By: #### C BCA, CMP ####[facility] ([id number])[address] [place] [address] 82950 Sodium [Moles/Vol] 139 mmol/L Normal 134-146 [facility] Comment on above: Performed By: #### C BCA, CMP ####[facility] ([id number])[address] [place] [address] 29013 Urea nitrogen [Mass/Vol] 14 mg/dL Normal 5-23 [facility] Comment on above: Performed By: #### C BCA, CMP ####[facility] ([id number])[address] [place] [address] 64261 URINE CULTUREon 03-06-2024 Bacteria identified Cx Nom (U) SPECIMEN NOTES URINE RECEIVED WITHOUT PRESERVATIVE CULTURE RESULTS 10-50,000 ORGANISMS/mL NORMAL UROGENITAL ALE Normal [facility] Comment on above: Performed By: #### 6 30-4 ####[facility] ([id number])[address] [facility], [address], [place] [address] URN MACROSCOPIC NURon 2023 BILIRUBIN JUNIOR Negative Normal NEG [facility] Comment on above: Performed By: #### N UM ####[facility] ([id number])[address] [place] [address] 31257 BLOOD/HGB JUNIOR Large Abnormal NEG [facility] Comment on above: Performed By: #### N UM ####[facility] ([id number])[address] [place] [address], [place] [address] GLUCOSE JUNIOR Negative Normal NEG [facility] Comment on above: Performed By: #### N UM ####[facility] ([id number])[address] [place] [address] [place] [address] KETONES JUNIOR Negative Normal NEG [facility] Comment on above: Performed By: #### N UM ####[facility] ([id number])[address] [place] [address], [place] [address] LEUKOCYTE ESTERASE JUNIOR Negative Normal NEG [facility] Comment on above: Performed By: #### N UM ####[facility] ([id number])[address] [place] [address] [place] [address] NITRITE JUNIOR Negative Normal NEG [facility] Comment on above: Performed By: #### N UM ####[facility] ([id number])[address] [place] [address] 91871 PH JUNIOR 7.0 Normal 5.0-8.5 [facility] Comment on above: Performed By: #### N UM ####[facility] ([id number])[address] [place] [address] 65846 PROTEIN JUNIOR 30 mg/dL Abnormal NEG [facility] Comment on above: Performed By: #### N UM ####[facility] ([id number])[address] [place] [address] 18743 SPECIFIC GRAVITY JUNIOR 1.025 Normal 1.003-1.035 [facility] Comment on above: Performed By: #### N UM ####[facility] ([id number])[address] [place] [address] 33993 UROBILINOGEN JUNIOR 1.0 eu/dL Normal <1.1 [facility] Comment on above: Performed By: #### N UM ####[facility] ([id number])[address] [place] [address] 48824 Lab Reportson 02-22-2024 Lab Reports [id number]#1.00TIFF Normal [facility] Lab Reportson 02-18-2024 Lab Reports [id number]#1.00TIFF Normal [facility] Report[facility] 02-17-2024 Lab Reports [id number]#1.00TIFF Normal [facility] 24 HR PHOSPHORUS,URINEon URINE PHOSPHORUS 0.8 g/24h Normal 0.4-1.3 [facility] Comment on above: Performed By: #### U PO4 ####[facility] ([id number])[address] [place] [address], [address] [place] [address], [place] [address] 24 HR UR MAGNESIUMon 024 URINE MAGNESIUM 116 mg/24h Normal 72-182 [facility] Comment on above: Performed By: #### U CA, UCR, UMAG, DARLEEN, UUA ####[facility] ([id number])[address] [address] 24 HR URINE CALCIUMon 2023 URINE CALCIUM 134 mg/24h Normal 50-250 [facility] Comment on above: Performed By: #### U CA, UCR, UMAG, DARLEEN, UUA ####[facility] ([id number])[address] [address] 24 HR URINE CREATININEon URINE CREATININE 0.88 g/24h Normal 0.80-1.80 [facility] Comment on above: Performed By: #### U CA, UCR, UMAG, DARLEEN, UUA ####[facility] ([id number])[address] [address] 24 HR URINE SODIUMon 024 URINE SODIUM 189 mmol/24h Normal 40-220 [facility] Comment on above: Performed By: #### U CA, UCR, UMAG, DARLEEN, UUA ####[facility] ([id number])[address] [address] 24 HR URINE URIC ACIDon 05 URINE URIC ACID 0.4 g/24h Normal 0.3-0.8 [facility] Comment on above: Performed By: #### U CA, UCR, UMAG, DARLEEN, UUA ####[facility] ([id number])[address] [address] BLOOD UREA NITROGENon 2023 Urea nitrogen [Mass/Vol] 9 mg/dL Normal 5-23 [facility] Comment on above: Performed By: #### C BCA, CMP #### [facility] ([id number]) [address] [place] [address], [place] [address] CALCIUMon 02-15-2024 Calcium [Mass/Vol] 9.0 mg/dL Normal 8.5-10.5 [facility] Comment on above: Performed By: #### C BCA, CMP #### [facility] ([id number]) [address] [place] [address]96 CARBON DIOXIDEon 02-15-2024 CO2 [Moles/Vol] 22 mmol/L Normal 22-32 [facility] Comment on above: Performed By: #### C BCA, CMP #### [facility] ([id number]) [address] [place] [address] 98450 CHLORIDEon 02-15-2024 Chloride [Moles/Vol] 111 mmol/L High 98-109 [facility] Comment on above: Performed By: #### C BCA, CMP #### [facility] ([id number]) [address] [place] [address] 21366 CITRIC ACID URINEon 02-15-20 24 CITRIC ACID,24H UR 550 mg/d Normal 320-1240 [facility] Comment on above: Performed By: #### 3 094-0, 71039-9, , 2028-06, PLATE DRYING MACHINE TENDER, 2951- 2, 2777-1, 3084-1, 2731-8 ####[facility] ([id number])[address], [address] [place] [address]#### CITACU ####[facility] ([id number])[address] [place] [address] 99584 CITRIC ACID,UR,VOL 611 mg/L Normal [facility] Comment on above: Performed By: #### 3 094-0, 97024-1, 0, 2028-06, PLATE DRYING MACHINE TENDER, 2951- 2, 2777-1, 3084-1, 2731-8 ####[facility] ([id number])[address] [facility], [address] [place] [address]#### CITACU ####[facility] ([id number])[address] [place] [address] 85382 CITRIC/CREAT RATIO 593 mg/g Normal >=150 [facility] Comment on above: Result Comment: NOTE INTERPRETIVE INFORMATION: Citric Acid, Urine This test was developed and its performance characteristics determined by [facility]. It has not been cleared or approved by the [place] Food and Drug Administration. This test was performed in a CLIA certified laboratory and is intended for clinical purposes. Performed By: [facility] [address] [place] [address] Herb Digger: Luca Mosquera MD, PhD CLIA Number: [id number] Performed By: #### 3 094-0, 22675-8, , 2028-06, PLATE DRYING MACHINE TENDER, 2951-2, 2777-1, 3084-1, 273-8 ####[facility] ([id number])[address] [place] [address]#### CITACU ####[facility] ([id number])[address] [place] [address] 96598 CREATININE,24H URINE 927 mg/d Normal 700-1600 [facility] Comment on above: Performed By: #### 3 094-0, 99311-6, 0, 2028-06, PLATE DRYING MACHINE TENDER, 2951- 2, 2777-1, 3084-1, 273-8 ####[facility] ([id number])[address] [place] [address] 687[address]#### CITACU ####[facility] ([id number])[address] [place] [address] 12776 CREATININE,UR,VOL 103 mg/dL Normal [facility] Comment on above: Performed By: #### 3 094-0, 48326-3, 2074-0, 9, PLATE DRYING MACHINE TENDER, 2951- 2, 2777-1, 3084-1, 2731-8 ####[facility] ([id number])[address], [address] [place] [address]#### CITACU ####[facility] ([id number])[address] [place] [address] 11237 HOURS COLLECTED 24 Normal [facility] Comment on above: Performed By: #### 3 094-0, 92689-2, 0, 2028-06, PLATE DRYING MACHINE TENDER, 2951- 2, 2777-1, 3084-1, 2731-8 ####[facility] ([id number])[address] [facility], [address] [place] [address]#### CITACU ####[facility] ([id number])[address] [place] [address] 21877 TOT VOLUME-24H URINE 900 Normal [facility] Comment on above: Performed By: #### 3 094-0, 55083-8, 0, 2028-06, PLATE DRYING MACHINE TENDER, 2951- 2, 2777-1, 3084-1, 2731-8 ####[facility] ([id number])[address] [address]#### CITACU ####[facility] ([id number])[address] [place] [address] 21831 CREATININEon 02-15-2024 Creatinine [Mass/Vol] 0.70 mg/dL Normal 0.40-1.00 [facility] Comment on above: Result Comment: METH OD TRACEABLE TO IDMS STANDARD Performed By: #### C BCA, CMP #### [facility] ([id number]) [address] [place] [address]89 eGFR (CKD-EPI) NON-RACE DEPENDENT >90 Normal >59 [facility] Comment on above: Result Comment: Reported eGFR is based on the CKD-EPI 2020 equation that does not use a race coefficient. Performed By: #### C BCA, CMP #### [facility] ([id number]) [address] [place] [address] OXALATE, TOTAL URINEon 02-14 CREATININE,24H URINE 945 mg/d Normal 700-1600 [facility] Comment on above: Result Comment: NOTE Performed By: [facility] [address] [place] [address] Herb Digger: Luca Mosquera MD, PhD CLIA Number: [id number] Performed By: #### O XALTU ####[facility] ([id number])[address] [place] [address] 22461 CREATININE,UR,VOL 105 mg/dL Normal [facility] Comment on above: Performed By: #### O XALTU ####[facility] ([id number])[address] [place] [address] 98225 HOURS COLLECTED 24 Normal [facility] Comment on above: Performed By: #### O XALTU ####[facility] ([id number])[address] [place] [address] 64270 OXALATE, PER VOLUME 32 mg/L Normal [facility] Comment on above: Performed By: #### O XALTU ####[facility] ([id number])[address] [place] [address] 13501 OXALATE,URINE/24H 29 mg/d Normal 13-40 [facility] Comment on above: Result Comment: NOTE REFERENCE INTERVAL: Oxalate, Urine - per 24h Access complete set of age- and/or gender-specific reference intervals for this test in the [employer] [facility] Test Directory ([employer]). This test was developed and its performance characteristics determined by [facility]. It has not been cleared or approved by the [place] Food and Drug Administration. This test was performed in a CLIA certified laboratory and is intended for clinical purposes. Performed By: #### O XALTU ####[facility] ([id number])[address] [place] [address] [place] [address] TOT VOLUME-24H URINE 900 Normal [facility] Comment on above: Performed By: #### O XAU ####[facility] ([id number])[address] [place] [address] 98430 PHOSPHORUSon 02-15-2024 Phosphate [Mass/Vol] 3.7 mg/dL Normal 2.4-4.9 [facility] Comment on above: Performed By: #### C BCA, CMP #### [facility] ([id number]) [address] [place] [address] Parathyrin.intact [Mass/Vol] on 02-15-2024 PTH INTACT 65 pg/mL Normal 12- [facility] Comment on above: Performed By: #### C BCA, CMP #### [facility] ([id number]) [address] [place] [address] 705[address] SODIUMon 02-15-2024 Sodium [Moles/Vol] 141 mmol/L Normal 134-146 [facility] Comment on above: Performed By: #### C BCA, CMP #### [facility] ([id number]) [address] [place] [address] 91667 URIC ACIDon 02-15-2024 Urate [Mass/Vol] 3.6 mg/dL Normal 2.6-7.2 [facility] Comment on above: Performed By: #### C BCA, CMP #### [facility] ([id number]) [address] [place] [address] 66278 URINE VOLUME AND TIMEon TIME 24 h Normal [facility] Comment on above: Performed By: #### U PO4 ####[facility] ([id number])[address] [facility], [address], [place] [address] Performed By: #### O XALTU ####[facility] ([id number])[address] [place] [address] Performed By: #### U CA, UCR, UMAG, DARLEEN, UUA ####[facility] ([id number])[address], [place] [address] TIME 24 h Normal [facility] Comment on above: Performed By: #### C BCA, CMP #### [facility] ([id number]) [address] [place] [address] 30958 TOTAL VOLUME 900 mL Normal [facility] Comment on above: Performed By: #### U PO4 ####[facility] ([id number])[address], [place] [address] Performed By: #### O XALTU ####[facility] ([id number])[address] [place] [address] Performed By: #### U CA, UCR, UMAG, DARLEEN, UUA ####[facility] ([id number])[address], [place] [address] TOTAL VOLUME 900 mL Normal [facility] Comment on above: Performed By: #### C BCA, CMP #### [facility] ([id number]) [address] [place] [id number] Orders Only02-04-2024 Orders Only [id number] Ludydy,Tabat ma 1980 F Date Provider Department Center 02/04/2024 RUKHSANA ESPINOZA MP [facility] Family History Problem Relation Age of Onset Brain cancer Mother Breast cancer Sister Kidney cancer Maternal Grandmother Prostate cancer Paternal Grandfather Cancer Father Cancer Sister Family Status - Relation Status Age at Mother Sister Maternal Grandmother Paternal Grandfather Father Sister Normal [facility] Orders Onlyon 01-19-2024 Orders Only [id number] Blody,Tabat ma 1980 F Date Provider Department Center 01/19/2024 RUKHSANA ESPINOZA MP PAIN Medical [facility] Family History Problem Relation Age of Onset Brain cancer Mother Breast cancer Sister Kidney cancer Maternal Grandmother Prostate cancer Paternal Grandfather Cancer Father Cancer Sister Family Status - Relation Status Age at Mother Sister Maternal Grandmother Paternal Grandfather Father Sister Normal [facility] 36on 01-06-2024 36 I called patient and left a voicemail and advice to be seen in ED. Normal [facility] XR ankle LT min 3V*on 2023 XR ankle LT min 3V* [facility] Main [place] [address] [place] [address] XRay Report Signed Patient: Elvi Moore MR#: [id number] : 1980 Acct:[id number] Age/Sex: 43 / F ADM Date: 01/06/24 Loc: [facility] Room: Type: [facility] Attending Dr: Rianna Antonio APRN Copies to: Rianna Antonio APRN Ordering Provider: Rianna Antonio APRN Date of Service: 01/06/24 XR/XR ankle LT min 3V*: W19.XXXA - Unspecified fall, initial encounter LEFT ANKLE - 3 views CLINICAL DATA: Patient rolled left ankle yesterday. Lateral pain. COMPARISON: None AP, lateral and oblique views were obtained. There is no evidence of fracture or dislocation. The talar dome is intact. Mild diffuse soft tissue swelling is seen. XR/XR ankle LT min 3V* IMPRESSION: NO ACUTE BONY INJURY. Impression dictated by: Solange Brown M.D.01/06/2024 6:47 PM Dictation Location: [place] [address] Transcribed By: [facility] 01/06/241846 Dictated By: Solange Brown MD 01/06/241845 Signed By: 01/06/241846 [facility] Follow-Upon 12-24-2023 Follow-Up [id number] Madyson Moore 1980 F Date Provider Department Center 12/24/2023 RUKHSANA ESPINOZA PAIN Medical [facility]avi Family History Problem Relation Age of Onset Brain cancer Mother Breast cancer Sister Kidney cancer Maternal Grandmother Prostate cancer Paternal Grandfather Cancer Father Cancer Sister Family Status - Relation Status Age at Mother Sister Maternal Grandmother Paternal Grandfather Father Sister Level of Service:77740 [place] OFFICE/OUTPATIENT ESTABLISHED LOW MDM 20 MIN Reason for Visit and Comments: Follow-up [186569] - Chief complaint : L knee Normal [facility] CBC AND AUTO DIFFon 12-10-19 24 ABSOLUTE BASOPHIL 0.0 X10E9/L Normal 0.0-0.2 [facility] Comment on above: Performed By: #### C BCA, CMP #### [facility] ([id number]) [address] [place] [address] 04430 ABSOLUTE NEUTROPHIL 6.4 X10E9/L Normal 1.5-6.[address] [facility] Comment on above: Performed By: #### C BCA, CMP #### [facility] ([id number]) [address] [place] [address] 62924 Basophils/100 WBC (Bld) 0.3 % Normal [facility] Comment on above: Performed By: #### C BCA, CMP #### [facility] ([id number]) [address] [place] [address] 99989 Eosinophils (Bld) [#/Vol] 0.0 10*3/uL Normal 0.0-0.4 [facility] Comment on above: Performed By: #### C BCA, CMP #### [facility] ([id number]) [address] [place] [address] 64515 Eosinophils/100 WBC (Bld) 0.4 % Normal [facility] Comment on above: Performed By: #### C BCA, CMP #### [facility] ([id number]) [address] [place] [address] 19868 Erythrocyte distribution width (RBC) [Ratio] 13.7 % Normal 11.5-15.0 [facility] Comment on above: Performed By: #### C BCA, CMP #### [facility] ([id number]) [address] [place] [address] 88092 Hematocrit (Bld) [Volume fraction] 41.2 % Normal 35-47 [facility] Comment on above: Performed By: #### C BCA, CMP #### [facility] ([id number]) [address] [place] [address] 79636 Hemoglobin (Bld) [Mass/Vol] 13.7 g/dL Normal 11.7-15.5 [facility] Comment on above: Performed By: #### C BCA, CMP #### [facility] ([id number]) [address] [place] [address] 78707 Lymphocytes (Bld) [#/Vol] 2.8 10*3/uL Normal 1.0-3.5 [facility] Comment on above: Performed By: #### C GALEN, CMP #### [facility] ([id number]) [address] [place] [address] 20823 Lymphocytes/100 WBC (Bld) 28.3 % Normal [facility] Comment on above: Performed By: #### C GALEN, CMP #### [facility] ([id number]) [address] [place] [address] 49044 MCH (RBC) [Entitic mass] 29.8 pg Normal 27-34 [facility] Comment on above: Performed By: #### C BCA, CMP #### [facility] ([id number]) [address] [place] [address] 88024 MCHC (RBC) [Mass/Vol] 33.4 g/dL Normal 32-36 [facility] Comment on above: Performed By: #### C BCA, CMP #### [facility] ([id number]) [address] [place] [address] 74912 MCV (RBC) [Entitic vol] 89 fL Normal 80-100 [facility] Comment on above: Performed By: #### C BCA, CMP #### [facility] ([id number]) [address] [place] [address] 82358 Monocytes (Bld) [#/Vol] 0.6 10*3/uL Normal 0-0.9 [facility] Comment on above: Performed By: #### C BCA, CMP #### [facility] ([id number]) [address] [place] [address] 77371 Monocytes/100 WBC (Bld) 5.9 % Normal [facility] Comment on above: Performed By: #### C BCA, CMP #### [facility] ([id number]) [address] [place] [address] 40393 Neutrophils/100 WBC (Bld) 65.1 % Normal [facility] Comment on above: Performed By: #### C GALEN, CMP #### [facility] ([id number]) [address] [place] [address] [place] [address] Platelet mean volume (Bld) [Entitic vol] 7.1 fL Normal 7-12 [facility] Comment on above: Performed By: #### C GALEN, CMP #### [facility] ([id number]) [address] [place] [address] 27975 Platelets (Bld) [#/Vol] 329 10*3/uL Normal 150-450 [facility] Comment on above: Performed By: #### C GALEN, CMP #### [facility] ([id number]) [address] [place] [address] 44987 RBC COUNT 4.60 X10E12/L Normal 3.80-5.20 [facility] Comment on above: Performed By: #### C BCA, CMP #### [facility] ([id number]) [address] [place] [address] 68196 WBC (Bld) [#/Vol] 9.8 10*3/uL Normal 4.0-11.0 [facility] Comment on above: Performed By: #### C BCA, CMP #### [facility] ([id number]) [address] [place] [address] 82623 COMPREHENSIVE METABOLIC PANE Nico 12-10-2023 Albumin [Mass/Vol] 4.6 g/dL Normal 3.2-5.3 [facility] Comment on above: Performed By: #### C BCA, CMP #### [facility] ([id number]) [address] [place] [address] 70334 ALP [Catalytic activity/Vol] 80 U/L Normal 39-130 [facility] Comment on above: Performed By: #### C BCA, CMP #### [facility] ([id number]) [address] [place] [address] 59011 ALT [Catalytic activity/Vol] 23 U/L Normal 0-31 [facility] Comment on above: Performed By: #### C BCA, CMP #### [facility] ([id number]) [address] [place] [address] 55556 Anion gap [Moles/Vol] 6 mmol/L Normal 5-15 [facility] Comment on above: Performed By: #### C BCA, CMP #### [facility] ([id number]) [address] [place] [address] 42596 AST [Catalytic activity/Vol] 20 U/L Normal 0-41 [facility] Comment on above: Performed By: #### C BCA, CMP #### [facility] ([id number]) [address] [place] [address] 42647 Bilirubin [Mass/Vol] 0.3 mg/dL Normal 0.3-1.2 [facility] Comment on above: Performed By: #### C BCA, CMP #### [facility] ([id number]) [address] [place] [address] 21180 Calcium [Mass/Vol] 8.5 mg/dL Normal 8.5-10.5 [facility] Comment on above: Performed By: #### C BCA, CMP #### [facility] ([id number]) [address] [place] [address] 02757 Chloride [Moles/Vol] 105 mmol/L Normal 98-109 [facility] Comment on above: Performed By: #### C BCA, CMP #### [facility] ([id number]) [address] [place] [address] 88566 CO2 [Moles/Vol] 27 mmol/L Normal 22-32 [facility] Comment on above: Performed By: #### C BCA, CMP #### [facility] ([id number]) [address] [place] [address] 93683 Creatinine [Mass/Vol] 0.59 mg/dL Normal 0.40-1.00 [facility] Comment on above: Result Comment: METH OD TRACEABLE TO IDMS STANDARD Performed By: #### C BCA, CMP #### [facility] ([id number]) [address] [place] [address] 95538 eGFR (CKD-EPI) NON-RACE DEPENDENT >90 Normal >59 [facility] Comment on above: Result Comment: Reported eGFR is based on the CKD-EPI 2020 equation that does not use a race coefficient. Performed By: #### C BCA, CMP #### [facility] ([id number]) [address] [place] [address] 89951 Glucose [Mass/Vol] 100 mg/dL High 65-99 [facility] Comment on above: Performed By: #### C BCA, CMP #### [facility] ([id number]) [address] [place] [address] 51508 Potassium [Moles/Vol] 3.5 mmol/L Normal 3.5-5.0 [facility] Comment on above: Performed By: #### C BCA, CMP #### [facility] ([id number]) [address] [place] [address] Protein [Mass/Vol] 7.8 g/dL Normal 6.0-8.0 [facility] Comment on above: Performed By: #### C BCA, CMP #### [facility] ([id number]) [address] [place] [address] 62147 Sodium [Moles/Vol] 138 mmol/L Normal 134-146 [facility] Comment on above: Performed By: #### C BCA, CMP #### [facility] ([id number]) [address] [place] [address] 05386 Urea nitrogen [Mass/Vol] 19 mg/dL Normal 5-23 [facility] Comment on above: Performed By: #### C BCA, CMP #### [facility] ([id number]) [address] [place] [address] ABDOMEN AND PELVIS W CONT on [...] Gates MD on 12/10/2023 2:08 AM Normal [facility] HCG ( test) Ql (U)o n 12-10-2023 Beta HCG ( test) Ql (U) Negative Normal NEG [facility] Comment on above: Performed By: #### Rony AARON, CMP #### [facility] ([id number]) [address] [place] [address] 35530 LIPASEon 12-10-2023 Lipase [Catalytic activity/Vol] 98 U/L High 17-40 [facility] Comment on above: Performed By: #### C GALEN, CMP #### [facility] ([id number]) [address] [place] [address] 25271 Lactate (P jaime) [Moles/Vol]o n 12-10-2023 LACTATE W/REFLEX 0.6 mmol/L Normal 0.4-2.0 [facility] Comment on above: Result Comment: Result did not trigger repeat Lactate, re-order if needed. Performed By: #### C GALEN, CMP #### [facility] ([id number]) [address] [place] [address] 32472 TROPONIN Ion 12-10-2023 Troponin I.cardiac [Mass/Vol] 0.02 ng/mL Normal 0.00-0.04 [facility] Comment on above: Performed By: #### C GALEN, CMP #### [facility] ([id number]) [address] [place] [address] 18111 URN MACROSCOPIC NURon 2023 BILIRUBIN JUNIOR Negative Normal NEG [facility] Comment on above: Performed By: #### C GALEN, CMP #### [facility] ([id number]) [address] [place] [address] 19962 BLOOD/HGB JUNIOR Large Abnormal NEG [facility] Comment on above: Performed By: #### C GALEN, CMP #### [facility] ([id number]) [address] [place] [address] 76460 GLUCOSE JUNIOR Negative Normal NEG [facility] Comment on above: Performed By: #### C BCA, CMP #### [facility] ([id number]) [address] [place] [address] 09706 KETONES JUNIOR Trace Abnormal NEG [facility] Comment on above: Performed By: #### C BCA, CMP #### [facility] ([id number]) [address] [place] [address] 69617 LEUKOCYTE ESTERASE JUNIOR Negative Normal NEG [facility] Comment on above: Performed By: #### C BCA, CMP #### [facility] ([id number]) [address] [place] [address] 59491 NITRITE JUNIOR Negative Normal NEG [facility] Comment on above: Performed By: #### C BCA, CMP #### [facility] ([id number]) [address] [place] [address] 80150 PH JUNIOR 6.0 Normal 5.0-8.5 [facility] Comment on above: Performed By: #### C BCA, CMP #### [facility] ([id number]) [address] [place] [address] 42665 PROTEIN JUNIOR Negative Normal NEG [facility] Comment on above: Performed By: #### C BCA, CMP #### [facility] ([id number]) [address] [place] [address] [place] [address] SPECIFIC GRAVITY JUNIOR >=1.030 Normal 1.003-1.035 [facility] Comment on above: Performed By: #### C BCA, CMP #### [facility] ([id number]) [address] [place] [address] 41803 UROBILINOGEN JUNIOR 0.2 eu/dL Normal <1.1 [facility] Comment on above: Performed By: #### C BCA, CMP #### [facility] ([id number]) [address] [facility], [place] [address] XR CHEST 1 VWon 12-10-2023 XR CHEST [...] Gates MD on 12/10/2023 1:59 AM Normal [facility] Orders Onlyon 11-23-2023 Orders Only [id number] Madyson Moore 1980 F Date Provider Department Center 11/23/2023 RUKHSANA ESPINOZA PAIN Medical [facility] Family History Problem Relation Age of Onset Brain cancer Mother Breast cancer Sister Kidney cancer Maternal Grandmother Prostate cancer Paternal Grandfather Cancer Father Cancer Sister Family Status - Relation Status Age at Mother Sister Maternal Grandmother Paternal Grandfather Father Sister Normal [facility] H. pylori Ag IA Ql (Stl)on 0 11-19-2023 H. PYLORI ANTG STOOL See Below Normal [facility] Comment on above: Result Comment: NOTE TEST RESULT FLAG UNIT REF.RANGE ---- EIA Test See Below Negative for H. Pylori antigen by EIA H.PYLORI EIA RESULT Negative for Helicobacter pylori antigen by EIA SOURCE: STOOL Test Performed By: [facility] [address] [place] [address] Herb Digger: Anurag Seth III, M.D. CLIA #[id number] Performed By: #### C BCA, CMP #### [facility] ([id number]) [address] [place] [address], [place] [address] Gastrin [Mass/Vol]on 024 GASTRIN 62.9 pg/mL Normal <115.0 [facility] Comment on above: Result Comment: NOTE The Gastrin test was performed using the Siemens Immulite chemiluminescent immunometric method. Results obtained with different assay methods or kits cannot be used interchangeably. Test Performed By: [facility] [address] [place] [address] Herb Digger: Anurag Seth III, M.D. CLIA #[id number] Performed By: #### 2 333-3 #### [facility] ([id number]) [address] [place] [address] 60617 Transfer Inon 11-05-2023 Transfer In [id number] Normal [facility] Follow-Upon 10-28-2023 Follow-Up [id number] Madyson Moore 1980 F Date Provider Department Center 10/28/2023 170-RUKHSANA MILLER MP PAIN Medical [facility] Family History Problem Relation Age of Onset Brain cancer Mother Breast cancer Sister Kidney cancer Maternal Grandmother Prostate cancer Paternal Grandfather Cancer Father Cancer Sister Family Status - Relation Status Age at Mother Sister Maternal Grandmother Paternal Grandfather Father Sister Level of Service:69368 [place] OFFICE/OUTPATIENT ESTABLISHED LOW MDM 20 MIN Reason for Visit and Comments: Knee Pain [061710] - left Normal [facility] 36on 10-20-2023 36 Approving, but needs appt for additional refills. Normal [facility] Orders Onlyon 10-20-2023 Orders Only [id number] Madyson Moore 1980 F Date Provider Department Center 10/20/202326122-LQMIMITCHELL APARICIO MP PROC Medical [facility] Family History Problem Relation Age of Onset Brain cancer Mother Breast cancer Sister Kidney cancer Maternal Grandmother Prostate cancer Paternal Grandfather Cancer Father Cancer Sister Family Status - Relation Status Age at Mother Sister Maternal Grandmother Paternal Grandfather Father Sister Normal [facility] Orders Onlyon 10-19-2023 Orders Only [id number] Madyson Moore 1980 F Date Provider Department Center 10/19/2023 [id number]-BVQUOH, IVI [facility] RHEUM Arturo [facility] Family History Problem Relation Age of Onset Brain cancer Mother Breast cancer Sister Kidney cancer Maternal Grandmother Prostate cancer Paternal Grandfather Cancer Father Cancer Sister Family Status - Relation Status Age at Mother Sister Maternal Grandmother Paternal Grandfather Father Sister [facility] 36on 10-18-2023 36 Patient is calling f or medication refill to be sent to pharmacy. Thank you [facility] BASIC METABOLIC PANLon 10-14 Anion gap [Moles/Vol] 10 mmol/L Normal 5-15 [facility] Comment on above: Performed By: #### B MP, LIVR, CBCA, 3040-3 #### [facility] ([id number]) [address] [place] [address] 06310 Calcium [Mass/Vol] 8.6 mg/dL Normal 8.5-10.5 [facility] Comment on above: Performed By: #### B MP, LIVR, CBCA, 3040-3 #### [facility] ([id number]) [address] [place] [address] 51257 Chloride [Moles/Vol] 100 mmol/L Normal 98-109 [facility] Comment on above: Performed By: #### B MP, LIVR, CBCA, 3040-3 #### [facility] ([id number]) [address] [place] [address] 80720 CO2 [Moles/Vol] 27 mmol/L Normal 22-32 [facility] Comment on above: Performed By: #### B MP, LIVR, CBCA, 3040-3 #### [facility] ([id number]) [address] [place] [address] 94644 Creatinine [Mass/Vol] 0.76 mg/dL Normal 0.40-1.00 [facility] Comment on above: Result Comment: METH OD TRACEABLE TO IDMS STANDARD Performed By: #### B MP, LIVR, CBCA, 3040-3 #### [facility] ([id number]) [address] [place] [address] 35295 eGFR (CKD-EPI) NON-RACE DEPENDENT >90 Normal >59 [facility] Comment on above: Result Comment: Reported eGFR is based on the CKD-EPI 2020 equation that does not use a race coefficient. Performed By: #### B MP, LIVR, CBCA, 3040-3 #### [facility] ([id number]) [address] [place] [address] 75387 Glucose [Mass/Vol] 84 mg/dL Normal 65-99 [facility] Comment on above: Performed By: #### B MP, LIVR, CBCA, 3040-3 #### [facility] ([id number]) [address] [place] [address] 87047 Potassium [Moles/Vol] 3.5 mmol/L Normal 3.5-5.0 [facility] Comment on above: Performed By: #### B MP, LIVR, CBCA, 3040-3 #### [facility] ([id number]) [address] [place] [address] 99898 Sodium [Moles/Vol] 137 mmol/L Normal 134-146 [facility] Comment on above: Performed By: #### B MP, LIVR, CBCA, 3040-3 #### [facility] ([id number]) [address] [place] [address] 70559 Urea nitrogen [Mass/Vol] 16 mg/dL Normal 5-23 [facility] Comment on above: Performed By: #### B MP, LIVR, CBCA, 3040-3 #### [facility] ([id number]) [address] [place] [address] 03269 CBC AND AUTO DIFFon 10-14-19 24 ABSOLUTE BASOPHIL 0.0 X10E9/L Normal 0.0-0.2 [facility] Comment on above: Performed By: #### C GALEN, CMP #### [facility] ([id number]) [address] [place] [address] 08234 ABSOLUTE BASOPHIL 0.0 X10E9/L Normal 0.0-0.2 [facility] Comment on above: Performed By: #### B MP, LIVR, CBCA, 3039-3 #### [facility] ([id number]) [address] [place] [address] 73421 ABSOLUTE NEUTROPHIL 4.5 X10E9/L Normal 1.5-6.[address] [facility] Comment on above: Performed By: #### C GALEN, CMP #### [facility] ([id number]) [address] [place] [address] 76258 ABSOLUTE NEUTROPHIL 3.6 X10E9/L Normal 1.5-6.[address] [facility] Comment on above: Performed By: #### B MP, LIVR, CBCA, 3039-3 #### [facility] ([id number]) [address] [place] [address] 81440 Basophils/100 WBC (Bld) 0.2 % Normal [facility] Comment on above: Performed By: #### C GALEN, CMP #### [facility] ([id number]) [address] [place] [address] 22649 Basophils/100 WBC (Bld) 0.2 % Normal [facility] Comment on above: Performed By: #### B MP, LIVR, CBCA, 3039-3 #### [facility] ([id number]) [address] [place] [address] 79308 Eosinophils (Bld) [#/Vol] 0.1 10*3/uL Normal 0.0-0.4 [facility] Comment on above: Performed By: #### C BCA, CMP #### [facility] ([id number]) [address] [place] [address] 18180 Eosinophils (Bld) [#/Vol] 0.1 10*3/uL Normal 0.0-0.4 [facility] Comment on above: Performed By: #### B MP, LIVR, CBCA, 3039-3 #### [facility] ([id number]) [address] [place] [address] 11636 Eosinophils/100 WBC (Bld) 1.1 % Normal [facility] Comment on above: Performed By: #### C BCA, CMP #### [facility] ([id number]) [address] [place] [address] 44683 Eosinophils/100 WBC (Bld) 1.7 % Normal [facility] Comment on above: Performed By: #### B MP, LIVR, CBCA, 3 #### [facility] ([id number]) [address] [place] [address] 94010 Erythrocyte distribution width (RBC) [Ratio] 13.8 % Normal 11.5-15.0 [facility] Comment on above: Performed By: #### C BCA, CMP #### [facility] ([id number]) [address] [place] [address] 79479 Erythrocyte distribution width (RBC) [Ratio] 14.0 % Normal 11.5-15.0 [facility] Comment on above: Performed By: #### B MP, LIVR, CBCA, 3039-3 #### [facility] ([id number]) [address] [place] [address] 97980 Hematocrit (Bld) [Volume fraction] 36.9 % Normal 35-47 [facility] Comment on above: Performed By: #### C BCA, CMP #### [facility] ([id number]) [address] [place] [address] 75753 Hematocrit (Bld) [Volume fraction] 35.0 % Normal 35-47 [facility] Comment on above: Performed By: #### B MP, LIVR, CBCA, 3040-3 #### [facility] ([id number]) [address] [place] [address] 73688 Hemoglobin (Bld) [Mass/Vol] 12.5 g/dL Normal 11.7-15.5 [facility] Comment on above: Performed By: #### C BCA, CMP #### [facility] ([id number]) [address] [place] [address] 64547 Hemoglobin (Bld) [Mass/Vol] 11.8 g/dL Normal 11.7-15.5 [facility] Comment on above: Performed By: #### B MP, LIVR, CBCA, 3039-12 #### [facility] ([id number]) [address] [place] [address] 12249 Lymphocytes (Bld) [#/Vol] 3.5 10*3/uL Normal 1.0-3.5 [facility] Comment on above: Performed By: #### C BCA, CMP #### [facility] ([id number]) [address] [place] [address] 99826 Lymphocytes (Bld) [#/Vol] 3.0 10*3/uL Normal 1.0-3.5 [facility] Comment on above: Performed By: #### B MP, LIVR, CBCA, 03 #### [facility] ([id number]) [address] [place] [address] 66618 Lymphocytes/100 WBC (Bld) 40.4 % Normal [facility] Comment on above: Performed By: #### C BCA, CMP #### [facility] ([id number]) [address] [place] [address] Lymphocytes/100 WBC (Bld) 41.6 % Normal [facility] Comment on above: Performed By: #### B MP, LIVR, CBCA, 3039-12 #### [facility] ([id number]) [address] [place] [address] [place] [address] MCH (RBC) [Entitic mass] 29.2 pg Normal 27-34 [facility] Comment on above: Performed By: #### C BCA, CMP #### [facility] ([id number]) [address] [place] [address] [place] [address] MCH (RBC) [Entitic mass] 29.6 pg Normal 27-34 [facility] Comment on above: Performed By: #### B MP, LIVR, CBCA, 3039-12 #### [facility] ([id number]) [address] [place] [address], [place] [address] MCHC (RBC) [Mass/Vol] 33.8 g/dL Normal 32-36 [facility] Comment on above: Performed By: #### C BCA, CMP #### [facility] ([id number]) [address] [place] [address], [place] [address] MCHC (RBC) [Mass/Vol] 33.8 g/dL Normal 32-36 [facility] Comment on above: Performed By: #### B MP, LIVR, CBCA, 3039-12 #### [facility] ([id number]) [address] [place] [address], [place] [address] MCV (RBC) [Entitic vol] 86 fL Normal 80-100 [facility] Comment on above: Performed By: #### C BCA, CMP #### [facility] ([id number]) [address] [place] [address], [place] [address] MCV (RBC) [Entitic vol] 88 fL Normal 80-100 [facility] Comment on above: Performed By: #### B MP, LIVR, CBCA, 3039-12 #### [facility] ([id number]) [address] [place] [address] 73926 Monocytes (Bld) [#/Vol] 0.5 10*3/uL Normal 0-0.9 [facility] Comment on above: Performed By: #### C BCA, CMP #### [facility] ([id number]) [address] [place] [address], [place] [address] Monocytes (Bld) [#/Vol] 0.4 10*3/uL Normal 0-0.9 [facility] Comment on above: Performed By: #### B MP, LIVR, CBCA, 3039-12 #### [facility] ([id number]) [address] [place] [address] 20757 Monocytes/100 WBC (Bld) 6.2 % Normal [facility] Comment on above: Performed By: #### C BCA, CMP #### [facility] ([id number]) [address] [place] [address] [place] [address] Monocytes/100 WBC (Bld) 5.6 % Normal [facility] Comment on above: Performed By: #### B MP, LIVR, CBCA, 3039-12 #### [facility] ([id number]) [address] [place] [address] [place] [address] Neutrophils/100 WBC (Bld) 52.1 % Normal [facility] Comment on above: Performed By: #### C BCA, CMP #### [facility] ([id number]) [address] [place] [address] 89796 Neutrophils/100 WBC (Bld) 50.9 % Normal [facility] Comment on above: Performed By: #### B MP, LIVR, CBCA, 3 #### [facility] ([id number]) [address] [place] [address] [place] [address] Platelet mean volume (Bld) [Entitic vol] 7.8 fL Normal 7-12 [facility] Comment on above: Performed By: #### C [place], CMP #### [facility] ([id number]) [address] [place] [address] [place] [address] Platelet mean volume (Bld) [Entitic vol] 7.5 fL Normal 7-12 [facility] Comment on above: Performed By: #### B MP, LIVR, CBCA, 0-3 #### [facility] ([id number]) [address] [place] [address] 22117 Platelets (Bld) [#/Vol] 293 10*3/uL Normal 150-450 [facility] Comment on above: Performed By: #### C [place], CMP #### [facility] ([id number]) [address] [place] [address] 87184 Platelets (Bld) [#/Vol] 256 10*3/uL Normal 150-450 [facility] Comment on above: Performed By: #### B MP, LIVR, CBCA, 3039-3 #### [facility] ([id number]) [address] [place] [address] [place] [address] RBC COUNT 4.26 X10E12/L Normal 3.80-5.20 [facility] Comment on above: Performed By: #### C [place], CMP #### [facility] ([id number]) [address] [place] [address] [place] [address] RBC COUNT 3.99 X10E12/L Normal 3.80-5.20 [facility] Comment on above: Performed By: #### B MP, LIVR, CBCA, 3039-3 #### [facility] ([id number]) [address] [place] [address] 68510 WBC (Bld) [#/Vol] 8.7 10*3/uL Normal 4.0-11.0 [facility] Comment on above: Performed By: #### C BCA, CMP #### [facility] ([id number]) [address] [place] [address] 46190 WBC (Bld) [#/Vol] 7.1 10*3/uL Normal 4.0-11.0 [facility] Comment on above: Performed By: #### B MP, LIVR, CBCA, 3040-3 #### [facility] ([id number]) [address] [place] [address] 67228 COMPREHENSIVE METABOLIC PANE Nico 10-14-2023 Albumin [Mass/Vol] 4.4 g/dL Normal 3.2-5.3 [facility] Comment on above: Performed By: #### C BCA, CMP #### [facility] ([id number]) [address] [place] [address] 63031 ALP [Catalytic activity/Vol] 104 U/L Normal 39-130 [facility] Comment on above: Performed By: #### C BCA, CMP #### [facility] ([id number]) [address] [place] [address] 58307 ALT [Catalytic activity/Vol] 14 U/L Normal 0-31 [facility] Comment on above: Performed By: #### C BCA, CMP #### [facility] ([id number]) [address] [place] [address] 51606 Anion gap [Moles/Vol] 9 mmol/L Normal 5-15 [facility] Comment on above: Performed By: #### C BCA, CMP #### [facility] ([id number]) [address] [place] [address] 02865 AST [Catalytic activity/Vol] 18 U/L Normal 0-41 [facility] Comment on above: Performed By: #### C BCA, CMP #### [facility] ([id number]) [address] [place] [address] 15220 Bilirubin [Mass/Vol] 0.8 mg/dL Normal 0.3-1.2 [facility] Comment on above: Performed By: #### C BCA, CMP #### [facility] ([id number]) [address] [place] [address] 52963 Calcium [Mass/Vol] 9.0 mg/dL Normal 8.5-10.5 [facility] Comment on above: Performed By: #### C BCA, CMP #### [facility] ([id number]) [address] [place] [address] 68305 Chloride [Moles/Vol] 102 mmol/L Normal 98-109 [facility] Comment on above: Performed By: #### C BCA, CMP #### [facility] ([id number]) [address] [place] [address] 63204 CO2 [Moles/Vol] 28 mmol/L Normal 22-32 [facility] Comment on above: Performed By: #### C BCA, CMP #### [facility] ([id number]) [address] [place] [address] 59181 Creatinine [Mass/Vol] 0.74 mg/dL Normal 0.40-1.00 [facility] Comment on above: Result Comment: METH OD TRACEABLE TO IDMS STANDARD Performed By: #### C BCA, CMP #### [facility] ([id number]) [address] [place] [address] 25169 eGFR (CKD-EPI) NON-RACE DEPENDENT >90 Normal >59 [facility] Comment on above: Result Comment: Reported eGFR is based on the CKD-EPI 2020 equation that does not use a race coefficient. Performed By: #### C BCA, CMP #### [facility] ([id number]) [address] [place] [address] 43140 Glucose [Mass/Vol] 98 mg/dL Normal 65-99 [facility] Comment on above: Performed By: #### C BCA, CMP #### [facility] ([id number]) [address] [place] [address] 17374 Potassium [Moles/Vol] 3.7 mmol/L Normal 3.5-5.0 [facility] Comment on above: Performed By: #### C BCA, CMP #### [facility] ([id number]) [address] [place] [address] 13678 Protein [Mass/Vol] 7.9 g/dL Normal 6.0-8.0 [facility] Comment on above: Performed By: #### C BCA, CMP #### [facility] ([id number]) [address] [place] [address] 10036 Sodium [Moles/Vol] 139 mmol/L Normal 134-146 [facility] Comment on above: Performed By: #### C BCA, CMP #### [facility] ([id number]) [address] [place] [address] 10544 Urea nitrogen [Mass/Vol] 17 mg/dL Normal 5-23 [facility] Comment on above: Performed By: #### C BCA, CMP #### [facility] ([id number]) [address] [place] [address] ABDOMEN AND PELVIS W CONT on [...] Awad MD on 10/14/2023 12:24 AM Normal [facility] CT ABDOMEN AND PELVIS WO CON Ton [...] Awad MD on 10/13/2023 11:00 PM Normal [facility] LIPASEon 10-14-2023 Lipase [Catalytic activity/Vol] 42 U/L High 17-40 [facility] Comment on above: Performed By: #### B MP, LIVR, CBCA, 3040-3 #### [facility] ([id number]) [address] [place] [address] 87576 LIVER PANELon 10-14-2023 Albumin [Mass/Vol] 4.1 g/dL Normal 3.2-5.3 [facility] Comment on above: Performed By: #### B MP, LIVR, CBCA, 3040-3 #### [facility] ([id number]) [address] [place] [address] 51151 ALP [Catalytic activity/Vol] 99 U/L Normal 39-130 [facility] Comment on above: Performed By: #### B MP, LIVR, CBCA, 3040-3 #### [facility] ([id number]) [address] [place] [address] 31537 ALT [Catalytic activity/Vol] 14 U/L Normal 0-31 [facility] Comment on above: Performed By: #### B MP, LIVR, CBCA, 3040-3 #### [facility] ([id number]) [address] [place] [address] 48692 AST [Catalytic activity/Vol] 20 U/L Normal 0-41 [facility] Comment on above: Performed By: #### B MP, LIVR, CBCA, 3040-3 #### [facility] ([id number]) [address] [place] [address] 80323 Bilirubin [Mass/Vol] 0.8 mg/dL Normal 0.3-1.2 [facility] Comment on above: Performed By: #### B MP, LIVR, CBCA, 3040-3 #### [facility] ([id number]) [address] [place] [address] 20788 Bilirubin.direct [Mass/Vol] 0.1 mg/dL Normal 0.0-0.4 [facility] Comment on above: Performed By: #### B MP, LIVR, CBCA, 3040-3 #### [facility] ([id number]) [address] [place] [address] 12787 Protein [Mass/Vol] 7.4 g/dL Normal 6.0-8.0 [facility] Comment on above: Performed By: #### B MP, LIVR, CBCA, 3040-3 #### [facility] ([id number]) [address] [place] [address] 14849 Pre-Certification Formon Pre-Certification Form [id number]#1.00TIFF Normal [facility] URN MACROSCOPIC NURon 2023 BILIRUBIN JUNIOR Negative Normal NEG [facility] Comment on above: Performed By: #### N UM #### [facility] ([id number]) [address] [place] [address] 89508 BLOOD/HGB JUNIOR Large Abnormal NEG [facility] Comment on above: Performed By: #### N UM #### [facility] ([id number]) [address] [place] [address], [place] [address] GLUCOSE JUNIOR Negative Normal NEG [facility] Comment on above: Performed By: #### N UM #### [facility] ([id number]) [address] [place] [address] [place] [address] KETONES JUNIOR Negative Normal NEG [facility] Comment on above: Performed By: #### N UM #### [facility] ([id number]) [address] [place] [address] [place] [address] LEUKOCYTE ESTERASE JUNIOR Trace Abnormal NEG [facility] Comment on above: Performed By: #### N UM #### [facility] ([id number]) [address] [place] [address] [place] [address] NITRITE JUNIOR Negative Normal NEG [facility] Comment on above: Performed By: #### N UM #### [facility] ([id number]) [address] [place] [address] [place] [address] PH JUNIOR 7.0 Normal 5.0-8.5 [facility] Comment on above: Performed By: #### N UM #### [facility] ([id number]) [address] [place] [address] [place] [address] PROTEIN JUNIOR Negative Normal NEG [facility] Comment on above: Performed By: #### N UM #### [facility] ([id number]) [address] [place] [address] [place] [address] SPECIFIC GRAVITY JUNIOR 1.025 Normal 1.003-1.035 [facility] Comment on above: Performed By: #### N UM #### [facility] ([id number]) [address] [place] [address] [place] [address] UROBILINOGEN JUNIOR 1.0 eu/dL Normal <1.1 [facility] Comment on above: Performed By: #### N UM #### [facility] ([id number]) [address] [place] [address], [place] [address] Consent for Procedure/Surger yon 10-12-2023 Consent for Procedure/Surgery [id number]#1.00TIFF Normal [facility] Consent for Treatmenton Consent for Treatment [id number]#1.00TIFF Normal [facility] Insurance Correspondenceon 0 10-12-2023 Insurance Correspondence [id number]#1.00TIFF Normal [facility] IntraOperative Documentson 0 10-12-2023 IntraOperative Documents [id number]#1.00TIFF Normal [facility] IntraOperative Documents [id number]#1.00TIFF Normal [facility] Main OR Intraoperative Recor don 10-12-2023 Main OR Intraoperative Record IntraOp Document Type FTURO Summary Primary Physician: Diana HAWKINS MD Finalized Date/Time: 10/12/23 10:37:58 Pt. Name: ELVI MOORE Izabel Linares/Sex: 1980 Female Med Rec #: [id number] Physician: Diana HAWKINS MD Financial #: [id number] Pt. Type: O Room/Bed: / Admit/Disch: 10/12/23 09:34:46 - Institution: Case Times FTURO Entry 1 Patient Times In Room 10/12/23 10:29:00 Out Room 10/12/23 10:43:00 Procedure Times Start 10/12/23 10:32:00 Stop 10/12/23 10:38:00 Anesthesia Times Last Modified By: Ashish ROBLEDO, Kesha STEINER 10/12/23 10:35:54 Case Attendance FTURO Entry 1 Entry 2 Entry 3 Case Attendee ROSS GENTILE, Diana Lowe, Asia Hinojosa RN, JATIN, Kesha Role Performed Surgeon - Primary Scrub - Primary Curriculum Facilitator - Primary Time In 10/12/23 10:29:00 10/12/23 10:29:00 10/12/23 10:29:00 Time Out 10/12/23 10:43:00 10/12/23 10:43:00 10/12/23 10:43:00 Procedure CYSTOSCOPY LOCAL WITH CYSTOSCOPY LOCAL WITH CYSTOSCOPY LOCAL WITH STENT REMOVAL(Left) STENT REMOVAL(Left) STENT REMOVAL(Left) Comments Last Modified By: Ashish ROBLEDO, TRACEYOR, Ashish ROBLEDO, TRACEYOR, Ashish ROBLEDO, TRACEYOR, Kesha 10/12/23 Kesha 10/12/23 Kesha 10/12/23 10:35:55 10:35:55 10:35:55 Surgical Procedures FTURO Entry 1 Procedure Description Procedure CYSTOSCOPY LOCAL WITH Modifiers Left STENT REMOVAL Surgeon Description CYSTO LEFT STENT REMOVAL Primary Procedure Yes Primary Surgeon Diana HAWKINS MD Start 10/12/23 10:32:00 Stop 10/12/23 10:38:00 Anesthesia Type Local Surgical Service Urology Wound Class 2 - Clean-Contaminated Last Modified By: Ashish ROBLEDO, JATIN, Kesha 10/12/23 10:35:56 General Case Data FTURO Pre-Care [...] Diana HAWKINS MD, Verified (If Participants Asia Lowe Applicable) JATIN Hinojosa RN, Ruthann Time Out [...] 10:36 JATIN Hinojosa RN, Ruthann 10/12/23 10:37 Normal [facility] Main OR Preoperative Recordo n 10-12-2023 Main OR Preoperative Record Holding Area Document Type FTURO Summary Primary Physician: Diana HAWKINS MD Finalized Date/Time: 10/12/23 10:32:11 Pt. Name: ELVI MOORE D.O.B./Sex: 1980 Female Med Rec #: [id number] Physician: Diana HAWKINS MD Financial #: [id number] Pt. Type: O Room/Bed: / Admit/Disch: 10/12/23 [...] JATIN Hinojosa RN, Ruthann 10/12/23 10:32 Normal [facility] Operative Reporton Operative Report Patient: DIEGO MOORE Age: 42 [...] procedure well and was subsequently discharged home. [facility] Comment on above: Result Comment: Elec tronically Signed By: ROSS GENTILE, Diana Darnell.violet\Date and Time Signed: 10/12/23 10:38 EST Outpatient Surgery Discharge Instructionon 10-12-2023 Outpatient Surgery Discharge Instruction [id number]#1.00TIFF [facility] Formson 10-08-2023 Forms [id number]#1.00TIFF [facility] ED Note-Physicianon 10-07-20 ED Note-Physician [id number]#1.00TIFF [facility] Formson 10-07-2023 Forms [id number]#1.00TIFF [facility] Lab Reportson 10-07-2023 Lab Reports [id number]#1.00TIFF [facility] RAD - CT Reporton 10-07-2023 RAD - CT Report [id number]#1.00TIFF [facility] Lab Reportson 09-27-2023 Lab Reports [id number]#1.00TIFF [facility] OARRS Reporton 09-27-2023 OARRS Report [id number]#1.00TIFF [facility] Pre-Certification Formon Pre-Certification Form [id number]#1.00TIFF [facility] Provider Letteron 09-27-2023 Provider Letter (Inserted Image. Darleen ble to display) September 27, 2023 ELVI MOORE [place] [address] : 1980 To Whom It May Concern, Please excuse above patient from work. Date of Illness: From: 09/16/2023 To: 09/28/2023 May Return to Work On: 09/29/2023 Restrictions: No Restrictios Comments: _ Sincerely, [facility] [address] [place] [address] [facility] Provider Letter (Inserted Image. Darleen ble to display) September 27, 2023 ELVI [place] [address] : 1980 To Whom It May Concern, Please excuse above patient from work. Date of Illness: From: 09/16/2023 To: 09/28/2023 May Return to Work On:09/29/2023 Restrictions: No Restrictions Comments: Any questions, please call our office Sincerely, [facility] [address] [facility], [place] [address] [facility] Formson 09-22-2023 Forms [id number]#1.00TIFF [facility] RAD - MISCon 09-21-2023 RAD - MISC [id number]#1.00TIFF [facility] Provider Letteron 09-20-2023 Provider Letter (Inserted Image. Darleen ble to display) September 20, 2023 ELVI [place] [address] : 1980 To Whom It May Concern, Please excuse above patient from work. Date of Illness: From: 09/16/23 To: 09/21/23 May Return to Work On: 09/22/23 Restrictions: N/A Comments: Patient may return to work 09/22/23. Patient had a surgical procedure done 09/16/[address] Diana Hawkins. Sincerely, [facility] ECG 12-Leadon 09-17-2023 ECG 12-Lead [id number]#1.00TIFF [facility] Lab Reportson 09-17-2023 Lab Reports [id number]#1.00TIFF [facility] RAD - CT Reporton 09-17-2023 RAD - CT Report [id number]#1.00TIFF [facility] RAD - MISCon 09-17-2023 RAD - MISC [id number]#1.00TIFF [facility] RAD - Ultrasound Reporton RAD - Ultrasound Report [id number]#1.00TIFF [facility] Operative Reporton Operative Report [id number]#1.00TIFF [facility] ED Note-Physicianon 09-14-20 ED Note-Physician [id number]#1.00TIFF [facility] Insurance Correspondenceon 1 11-15-2022 Insurance Correspondence [id number]#1.00TIFF [facility] RAD - CT Reporton 09-14-2023 RAD - CT Report [id number]#1.00TIFF [facility] RAD - CT Report [id number]#1.00TIFF [facility] Ambulatory Visit Summaryon 1 2-04-2023 Ambulatory Visit Summary ELVI MOORE :1980 Visit Date:09/13/2023 Ambulatory Visit Instructions Your Diagnosis Kidney stone Gross hematuria Left flank pain Tests Performed Urnls Dip Stick Auto w/o Microscopy POC 89340 Your Care Team Attending Physician - ROSS [...] [facility] [address] , [place] [id number] Medications What How Much When Instructions Unchanged [...] Urnls Dip Stick Auto w/o Microscopy POC 68631 (09/13/2023) Bilirubin Urine Dipstick - Negative Blood Urine Dipstick - 2+ Moderate Glucose Urine Dipstick - Negative Ketones Urine Dipstick - Negative Leukocytes Urine Dipstick - Negative Nitrite Urine Dipstick - Negative Protein Urine Dipstick - Negative Specific [place] Urine Dipstick - 1.025 Urine Appearance Urine [...] including vitamins, herbs, eye drops, creams, and irny-ydc-ccwhhge medicines. ? Any problems you or family members have had with anesthetic medicines. ? Any blood disorders you have. ? Any surgeries you have had. ? Any m (more content not included)... [facility] Consent for Procedure/Surger yon 09-13-2023 Consent for Procedure/Surgery [id number]#1.00TIFF [facility] 36on 09-08-2023 36 Patient seen in the ER for a large kidney stone. Was prescribed Oxycodone medication for pain discomfort. Patient would like to know if this will be ok for her to get from pharmacy. Please advise [phone]. Thank you [facility] Consultation Noteon 08-23-20 Consultation Note [id number] [facility] Lab Reportson 08-23-2023 Lab Reports [id number] [facility] Consultation Noteon 08-20-20 Consultation Note [id number] [facility] Follow-Upon 08-19-2023 Follow-Up [id number] Madyson Moore 1980 F Date Provider Department Center 08/19/2023 ARJUN ROSE MP PAIN [facility] Family History Problem Relation Age of Onset Brain cancer Mother Breast cancer Sister Kidney cancer Maternal Grandmother Prostate cancer Paternal Grandfather Cancer Father Cancer Sister Family Status - Relation Status Age at Mother Sister Maternal Grandmother Paternal Grandfather Father Sister Level of Service:55131 FL OFFICE/OUTPATIENT ESTABLISHED MOD MDM 30-39 MIN Reason for Visit and Comments: Follow-up [[id number]] - Chronic Left Knee Pain Normal [facility] Follow-Upon 07-20-2023 Follow-Up [id number] Madyson Moore 1980 F Date Provider Department Center 07/20/2023 ARJUN ROSE MP PAIN [facility] Family History Problem Relation Age of Onset Brain cancer Mother Breast cancer Sister Kidney cancer Maternal Grandmother Prostate cancer Paternal Grandfather Cancer Father Cancer Sister Family Status - Relation Status Age at Mother Sister Maternal Grandmother Paternal Grandfather Father Sister Level of Service:88220 [place] OFFICE/OUTPATIENT ESTABLISHED MOD MDM 30-39 MIN Reason for Visit and Comments: Follow-up [[id number]] - Left knee pain [facility] Orders Onlyon 07-07-2023 Orders Only [id number] Madyson Moore 1980 F Date Provider Department Center 07/07/2023 170-RUKHSANA MILLER PAIN [facility] Family History Problem Relation Age of Onset Brain cancer Mother Breast cancer Sister Kidney cancer Maternal Grandmother Prostate cancer Paternal Grandfather Cancer Father Cancer Sister Family Status - Relation Status Age at Mother Sister Maternal Grandmother Paternal Grandfather Father Sister [facility] 36on 06-09-2023 36 Patient is requestin g her [place] 5/325 refill, needs it before the weekend. Please and thank you so much. [facility] 36 Approving, but needs appt for additional refills. [facility] Follow-Upon 06-01-2023 Follow-Up [id number] Madyson Moore ma 1980 F Date Provider Department Center 06/01/2023 Woody-ARJUN MINER PAIN Medical [facility] Family History Problem Relation Age of Onset Brain cancer Mother Breast cancer Sister Kidney cancer Maternal Grandmother Prostate cancer Paternal Grandfather Cancer Father Cancer Sister Family Status - Relation Status Age at Mother Sister Maternal Grandmother Paternal Grandfather Father Sister Level of Service:50626 FL OFFICE/OUTPATIENT ESTABLISHED LOW MDM 20-29 MIN (GC) Reason for Visit and Comments: Med Management [[id number]] - Left Leg Pain No refills needed today [facility] Ferritinon 05-28-2023 Ferritin [Mass/Vol] 4.9 ng/mL Low 11.0-306.8 [facility] Comment on above: Result Comment: PERF ORMED BY: [facility] [address] [place] [address] PATHOLOGIST SENIOR CONSTRUCTION ESTIMATOR MELISSA WAGNER M.D. Performed By: #### S CAN CBC, JANESSA, FE and TIBC #### [facility] [address] [place] [address] Iron and TIBC Profileon 05-11 % Iron Saturation 2.5 % Low 20-50 [facility] Comment on above: Performed By: #### S CAN CBC, JANESSA, FE and TIBC #### [address] Iron [Mass/Vol] 13 ug/dL Low 50-212 [facility] Comment on above: Performed By: #### S CAN CBC, JANESSA, FE and TIBC #### [address] Total Iron Binding Capacity 517 ug/dL High 255-450 [facility] Comment on above: Performed By: #### S CAN CBC, JANESSA, FE and TIBC #### [address] Transferrin [Mass/Vol] 369 mg/dL High 203-362 [facility] Comment on above: Performed By: #### S CAN CBC, JANESSA, FE and TIBC #### [address] Scan and CBCon 05-28-2023 Anisocytosis Ql (Bld) Marked Normal [facility] Comment on above: Performed By: #### S CAN CBC, JANESSA, FE and TIBC #### [address] Basophils (Bld) [#/Vol] 0.0 10*3/uL Normal 0.0-0.2 [facility] Comment on above: Performed By: #### S CAN CBC, JANESSA, FE and TIBC #### [address] Basophils/100 WBC (Bld) 0.3 % Normal . [facility] Comment on above: Performed By: #### S CAN CBC, JANESSA, FE and TIBC #### [address] Eosinophils (Bld) [#/Vol] 0.0 10*3/uL Normal 0.0-0.45 [facility] Comment on above: Performed By: #### S CAN CBC, JANESSA, FE and TIBC #### [address] Eosinophils/100 WBC (Bld) 0.6 % Normal . [facility] Comment on above: Performed By: #### S CAN CBC, JANESSA, FE and TIBC #### [address] Erythrocyte distribution width (RBC) [Ratio] 20.1 % High 11.9-15.3 [facility] Comment on above: Performed By: #### S CAN CBC, JANESSA, FE and TIBC #### [address] Hematocrit (Bld) [Volume fraction] 28.6 % Low 34.0-46.4 [facility] Comment on above: Performed By: #### S CAN CBC, JANESSA, FE and TIBC #### [address] Hemoglobin (Bld) [Mass/Vol] 8.9 g/dL Low 11.8-15.4 [facility] Comment on above: Performed By: #### S CAN CBC, JANESSA, FE and TIBC #### [address] Hypochromasia Moderate Normal [facility] Comment on above: Performed By: #### S CAN CBC, JANESSA, FE and TIBC #### [address] Lymphocytes (Bld) [#/Vol] 2.6 10*3/uL Normal 1.00-4.8 [facility] Comment on above: Performed By: #### S CAN CBC, JANESSA, FE and TIBC #### [address] Lymphocytes/100 WBC (Bld) 37.7 % Normal . [facility] Comment on above: Performed By: #### S CAN CBC, JANESSA, FE and TIBC #### [address] MCH (RBC) [Entitic mass] 20.5 pg Low 24.7-34.3 [facility] Comment on above: Performed By: #### S CAN CBC, JANESSA, FE and TIBC #### [address] MCV (RBC) [Entitic vol] 65.8 fL Low 80-100 [facility] Comment on above: Performed By: #### S CAN CBC, JANESSA, FE and TIBC #### [address] Mean Corpuscular HGB Conc 31.1 g/dL Low 32.0-35.0 [facility] Comment on above: Performed By: #### S CAN CBC, JANESSA, FE and TIBC #### [address] Microcytosis Marked Normal [facility] Comment on above: Performed By: #### S CAN CBC, JANESSA, FE and TIBC #### [address] Monocytes (Bld) [#/Vol] 0.4 10*3/uL Normal 0.0-0.8 [facility] Comment on above: Performed By: #### S CAN CBC, JANESSA, FE and TIBC #### [address] Monocytes/100 WBC (Bld) 6.3 % Normal . [facility] Comment on above: Performed By: #### S CAN CBC, JANESSA, FE and TIBC #### [address] Neutrophils (Bld) [#/Vol] 3.8 10*3/uL Normal 1.8-7.7 [facility] Comment on above: Performed By: #### S CAN CBC, JANESSA, FE and TIBC #### [address] Neutrophils/100 WBC (Bld) 55.1 % Normal . [facility] Comment on above: Performed By: #### S CAN CBC, JANESSA, FE and TIBC #### [address] NRBC% 0.1 /100{WBC} Normal 0-0.5 [facility] Comment on above: Performed By: #### S CAN CBC, JANESSA, FE and TIBC #### [address] Ovalocytes Slight Normal [facility] Comment on above: Performed By: #### S CAN CBC, JANESSA, FE and TIBC #### [address] Platelet Estimate Normal Normal Normal [facility] Comment on above: Performed By: #### S CAN CBC, JANESSA, FE and TIBC #### [address] Platelet mean volume (Bld) [Entitic vol] 8.7 fL Normal 6.3-10.7 [facility] Comment on above: Performed By: #### S CAN CBC, JANESSA, FE and TIBC #### [address] Platelet Morphology Normal Normal Normal [facility] Comment on above: Result Comment: PERF ORMED BY: [place] [address] PATHOLOGIST SENIOR CONSTRUCTION ESTIMATOR MELISSA WAGNER M.D. Performed By: #### S CAN CBC, JANESSA, FE and TIBC #### [address] Platelets (Bld) [#/Vol] 218 10*3/uL Normal 150-450 [facility] Comment on above: Performed By: #### S CAN CBC, JANESSA, FE and TIBC #### [address] Poikilocytosis Slight Normal [facility] Comment on above: Performed By: #### S CAN CBC, JANESSA, FE and TIBC #### [address] RBC (Bld) [#/Vol] 4.34 10*6/uL Normal 3.60-5.00 [facility] Comment on above: Performed By: #### S CAN CBC, JANESSA, FE and TIBC #### [facility] [address] Schistocytes Slight Normal [facility] Comment on above: Performed By: #### S CAN CBC, JANESSA, FE and TIBC #### [facility] [address] WBC (Bld) [#/Vol] 6.9 10*3/uL Normal 3.8-11.6 [facility] Comment on above: Performed By: #### S CAN CBC, JANESSA, FE and TIBC #### [facility] [address] AMYLASEon 01-25-2023 Amylase [Catalytic activity/Vol] 64 U/L Normal 25-115 [facility] Comment on above: Performed By: #### B MP, LIPA, YVETTE, LIVER #### [facility] [address] [place] [address] Dr. Idania Roldan CBC AUTO DIFFon 01-25-2023 BASO # 0.0 103/ul Normal 0.0-0.1 [facility] Comment on above: Performed By: #### B MP, LIPA, YVETTE, LIVER #### [facility] [address] [place] [address] Dr. Idania Roldan Basophils/100 WBC (Bld) 0.3 % Normal 0.2-2.0 [facility] Comment on above: Performed By: #### B MP, LIPA, YVETTE, LIVER #### [facility] [address] [place] [address] Dr. Idania Roldan EO # 0.1 103/ul Normal 0.0-0.7 [facility] Comment on above: Performed By: #### B MP, LIPA, YVETTE, LIVER #### [facility] [address] [place] [address] Dr. Idania Roldan Eosinophils/100 WBC (Bld) 1.0 % Normal 0.9-7.0 [facility] Comment on above: Performed By: #### B MP, LIPA, YVETTE, LIVER #### [facility] [address] [place] [address] Dr. Idania Roldan Erythrocyte distribution width (RBC) [Ratio] 17.2 % Critically high 11.0-15.0 [facility] Comment on above: Performed By: #### B MP, LIPA, YVETTE, LIVER #### [facility] [address] [place] [address] Dr. Idania Roldan Hematocrit (Bld) [Volume fraction] 33.9 % Critically low 36.0-48.0 [facility] Comment on above: Performed By: #### B MP, LIPA, YVETTE, LIVER #### [facility] [address] [place] [address] Dr. Idania Roldan Hemoglobin (Bld) [Mass/Vol] 10.1 g/dL Critically low 12.0-16.0 [facility] Comment on above: Performed By: #### B MP, LIPA, YVETTE, LIVER #### [facility] [address] [place] [address] Dr. Idania Roldan IG # 0.01 10e3/ul Normal 0.00-0.03 [facility] Comment on above: Performed By: #### B MP, LIPA, YVETTE, LIVER #### [facility] [address] [place] [address] Dr. Idania Roldan IG % 0.2 % Normal 0.0-0.5 [facility] Comment on above: Performed By: #### B MP, LIPA, YVETTE, LIVER #### [facility] [address] [place] [address] Dr. Idania Roldan LYMPH # 1.7 103/ul Normal 1.2-3.8 [facility] Comment on above: Performed By: #### B MP, LIPA, YVETTE, LIVER #### [facility] [address] [place] [address] Dr. Idania Roldan Lymphocytes/100 WBC (Bld) 27.9 % Normal 20.5-60.0 [facility] Comment on above: Performed By: #### B MP, LIPA, YVETTE, LIVER #### [facility] [address] [place] [address] Dr. Idania Roldan MANUAL DIFF REQ NO Normal [facility] Comment on above: Performed By: #### B MP, LIPA, YVETTE, LIVER #### [facility] [address] [address] [address] Idania Roldan MCH (RBC) [Entitic mass] 20.7 pg Critically low 26.7-34.0 [facility] Comment on above: Performed By: #### B MP, LIPA, YVETTE, LIVER #### [facility] [address] [address] [address] Idania Roldan MCHC (RBC) [Mass/Vol] 29.8 g/dL Critically low 29.9-35.2 [facility] Comment on above: Performed By: #### B MP, LIPA, YVETTE, LIVER #### [facility] [address] [address] [address] Idania Roldan MCV (RBC) [Entitic vol] 69.6 fL Critically low 81.0-99.0 [facility] Comment on above: Performed By: #### B MP, LIPA, YVETTE, LIVER #### [facility] [address] [address] [address] Idania Roldan MONO # 0.4 103/ul Normal 0.3-0.8 [facility] Comment on above: Performed By: #### B MP, LIPA, YVETTE, LIVER #### [facility] [address] [address] [address] Idania Roldan Monocytes/100 WBC (Bld) 7.1 % Normal 1.7-12.0 [facility] Comment on above: Performed By: #### B MP, LIPA, YVETTE, LIVER #### [facility] [address] [address] [address] Idania Roldan NEUT # 3.8 103/ul Normal 1.4-6.5 [facility] Comment on above: Performed By: #### B MP, LIPA, YVETTE, LIVER #### [facility] [address] [address] [address] Idania Roldan Neutrophils/100 WBC (Bld) 63.5 % Normal 43.0-75.0 [facility] Comment on above: Performed By: #### B MP, LIPA, YVETTE, LIVER #### [facility] [address] [place] [address] Dr. Idania Roldan Platelet mean volume (Bld) [Entitic vol] 9.3 fL Critically low 9.5-13.5 [facility] Comment on above: Performed By: #### B MP, LIPA, YVETTE, LIVER #### [facility] [address] [address] [address] Idania Roldan PLT 294 103/ul Normal 150-450 [facility] Comment on above: Performed By: #### B MP, LIPA, YVETTE, LIVER #### [facility] [address] [place] [address] Dr. Idania Roldan RBC 4.87 106/ul Normal 4.20-5.40 [facility] Comment on above: Performed By: #### B MP, LIPA, YVETTE, LIVER #### [facility] [address] [place] [address] Dr. Idania Roldan WBC 6.0 103/ul Normal 4.0-11.0 [facility] Comment on above: Performed By: #### B MP, LIPA, YVETTE, LIVER #### [facility] [address] [place] [address] ABD/PELVIS WO CONon [...] VEDA BOND Date: 2023-01-25 12:20 Normal [facility] ER URINE PROFILEon 3 Bilirubin Ql (U) SMALL Abnormal NEGATIVE [facility] Comment on above: Performed By: #### B MP, LIPA, YVETTE, LIVER #### [facility] [address] [address] [address] Idania Roldan Clarity (U) CLEAR Normal CLEAR [facility] Comment on above: Performed By: #### B MP, LIPA, YVETTE, LIVER #### [facility] [address] [address] [address] Idania Roldan Color (U) DK. YELLOW Normal YELLOW [facility] Comment on above: Performed By: #### B MP, LIPA, YVETTE, LIVER #### [facility] [address] [address] [address] Idania Roldan ERUALLIED A micrscopic examina tion will be performed if indicated. Normal [facility] Comment on above: Performed By: #### B MP, LIPA, YVETTE, LIVER #### [facility] [address] [address] [address] Idania Roldan Glucose Ql (U) Negative Normal NEGATIVE [facility] Comment on above: Performed By: #### B MP, LIPA, YVETTE, LIVER #### [facility] [address] [address] [address] Idania Roldan Hemoglobin Ql (U) LARGE Abnormal NEGATIVE [facility] Comment on above: Performed By: #### B MP, LIPA, YVETTE, LIVER #### [facility] [address] [address] [address] Idania Roldan Ketones Ql (U) TRACE Abnormal NEGATIVE [facility] Comment on above: Performed By: #### B MP, LIPA, YVETTE, LIVER #### [facility] [address] [place] [address] Dr. Idania Roldan LEUKOCYTES Negative Normal NEGATIVE [facility] Comment on above: Performed By: #### B MP, LIPA, YVETTE, LIVER #### [facility] [address] [address] [address] Idania Roldan Nitrite Ql (U) Negative Normal NEGATIVE [facility] Comment on above: Performed By: #### B MP, LIPA, YVETTE, LIVER #### [facility] [address] [place] [address] Dr. Idania Roldan pH (U) 5.0 [pH] Normal 5-9 [facility] Comment on above: Performed By: #### B MP, LIPA, YVETTE, LIVER #### [facility] [address] [place] [address] Dr. Idania Roldan SPEC GRAVITY >=1.030 Abnormal 1.005-<=1.02 5 [facility] Comment on above: Performed By: #### B MP, LIPA, YVETTE, LIVER #### [facility] [address] [place] [address] Dr. Idania Roldan UA PROTEIN TRACE Normal NEGATIVE/ TRACE [facility] Comment on above: Performed By: #### B MP, LIPA, YVETTE, LIVER #### [facility] [address] [place] [address] Dr. Idania Roldan UR MICRO IND INDICATED Normal [facility] Comment on above: Performed By: #### B MP, LIPA, YVETTE, LIVER #### [facility] [address] [place] [address] Dr. Idania Roldan Urobilinogen Qn (U) 0.2 {Bryan'U}/dL Normal 0.2 - 1. 0 [facility] Comment on above: Performed By: #### B MP, LIPA, YVETTE, LIVER #### [facility] [address] [place] [address] Dr. Idania Roldan LIPASEon 01-25-2023 Lipase [Catalytic activity/Vol] 226.0 U/L Normal 73.0-393.0 [facility] Comment on above: Performed By: #### B MP, LIPA, YVETTE, LIVER #### [facility] [address] [place] [address] Dr. Idania Roldan LIVER PROFILEon 01-25-2023 Albumin [Mass/Vol] 4.1 g/dL Normal 3.4-5.0 [facility] Comment on above: Performed By: #### B MP, LIPA, YVETTE, LIVER #### [facility] [address] [place] [address] Dr. Idania Roldan Albumin/Globulin [Mass ratio] 0.9 {ratio} Normal [facility] Comment on above: Performed By: #### B MP, LIPA, YVETTE, LIVER #### [facility] [address] [place] [address] Dr. Idania Roldan ALP [Catalytic activity/Vol] 110 U/L Normal 46-116 [facility] Comment on above: Performed By: #### B MP, LIPA, YVETTE, LIVER #### [facility] [address] [place] [address] Dr. Idania Roldan ALT [Catalytic activity/Vol] 20 U/L Normal 14-59 [facility] Comment on above: Performed By: #### B MP, LIPA, YVETTE, LIVER #### [facility] [address] [place] [address] Dr. Idania Roldan AST [Catalytic activity/Vol] 11 U/L Critically low 15-37 [facility] Comment on above: Performed By: #### B MP, LIPA, YVETTE, LIVER #### [facility] [address] [place] [address] Dr. Idania Roldan BILI, CONJUGATED 0.1 mg/dL Normal 0.0-0.2 [facility] Comment on above: Performed By: #### B MP, LIPA, YVETTE, LIVER #### [facility] [address] [place] [address] Dr. Idania Roldan Bilirubin [Mass/Vol] 0.3 mg/dL Normal 0.2-1.0 [facility] Comment on above: Performed By: #### B MP, LIPA, YVETTE, LIVER #### [facility] [address] [address] [address] Idania Roldan Globulin (S) [Mass/Vol] 4.4 g/dL Normal [facility] Comment on above: Performed By: #### B MP, LIPA, YVETTE, LIVER #### [facility] [address] [place] [address] Dr. Idania Roldan Protein [Mass/Vol] 8.5 g/dL Critically high 6.4-8.2 [facility] Comment on above: Performed By: #### B MP, LIPA, YVETTE, LIVER #### [facility] [address] [place] [address] Dr. Idania Roldan PROF CHEM 8 (BAS METB)on Anion gap [Moles/Vol] 13.5 mmol/L Normal [facility] Comment on above: Performed By: #### B MP, LIPA, YVETTE, LIVER #### [facility] [address] [place] [address] Dr. Idania Roldan Calcium [Mass/Vol] 9.3 mg/dL Normal 8.5-10.1 [facility] Comment on above: Performed By: #### B MP, LIPA, YVETTE, LIVER #### [facility] [address] [place] [address] Dr. Idania Roldan Chloride [Moles/Vol] 105 mmol/L Normal 98-107 [facility] Comment on above: Performed By: #### B MP, LIPA, YVETTE, LIVER #### [facility] [address] [place] [address] Dr. Idania Roldan CO2 [Moles/Vol] 27.2 mmol/L Normal 21.0-32.0 [facility] Comment on above: Performed By: #### B MP, LIPA, YVETTE, LIVER #### [facility] [address] [place] [address] Dr. Idania Roldan Creatinine [Mass/Vol] 0.74 mg/dL Normal 0.55-1.02 [facility] Comment on above: Performed By: #### B MP, LIPA, YVETTE, LIVER #### [facility] [address] [place] [address] Dr. Idania Roldan EGFR-AF COLOMBIAN >60 Normal >=60 [facility] Comment on above: Performed By: #### B MP, LIPA, YVETTE, LIVER #### [facility] [address] [place] [address] Dr. Idania Roldan EGFR-NON AF COLOMBIAN >60 Normal >=60 [facility] Comment on above: Performed By: #### B MP, LIPA, YVETTE, LIVER #### [facility] [address] [place] [address] Dr. Idania Roldan Glucose [Mass/Vol] 97 mg/dL Normal 74-106 [facility] Comment on above: Performed By: #### B MP, LIPA, YVETTE, LIVER #### [facility] [address] [place] [address] Dr. Idania Roldan Potassium [Moles/Vol] 3.7 mmol/L Normal 3.5-5.1 [facility] Comment on above: Performed By: #### B MP, LIPA, YVETTE, LIVER #### [facility] [address] [place] [address] Dr. Idania Roldan Sodium [Moles/Vol] 142 mmol/L Normal 136-145 [facility] Comment on above: Performed By: #### B MP, LIPA, YVETTE, LIVER #### [facility] [address] [place] [address] Dr. Idania Roldan Urea nitrogen [Mass/Vol] 13.0 mg/dL Normal 7.0-18.0 [facility] Comment on above: Performed By: #### B MP, LIPA, YVETTE, LIVER #### [facility] [address] [place] [address] Dr. Idania Roldan Urea nitrogen/Creatinine [Mass ratio] 17.6 mg/mg Normal [facility] Comment on above: Performed By: #### B MP, LIPA, YVETTE, LIVER #### [facility] [address] [place] [address] Dr. Idania Roldan URINE MICROSCOPIC ONLYon 04- 17-2023 BACTERIA NONE SEEN Normal NONE SEEN [facility] Comment on above: Performed By: #### B MP, LIPA, YVETTE, LIVER #### [facility] [address] [place] [address] Dr. Idania Roldan Bacteria identified Cx Nom (U) NOT INDICATED Normal [facility] Comment on above: Performed By: #### B MP, LIPA, YVETTE, LIVER #### [facility] [address] [place] [address] Dr. Idania Roldan CAST NONE SEEN Normal NONE SEEN [facility] Comment on above: Performed By: #### B MP, LIPA, YVETTE, LIVER #### [facility] [address] [place] [address] Dr. Idania Roldan Crystals LM Nom (Urine sed) NONE SEEN Normal NONE SEEN [facility] Comment on above: Performed By: #### B MP, LIPA, YVETTE, LIVER #### [facility] [address] [place] [address] Dr. Idania Roldan Epithelial cells LM Ql (Urine sed) FEW Abnormal NONE SEEN /RARE [facility] Comment on above: Performed By: #### B MP, LIPA, YVETTE, LIVER #### [facility] [address] [place] [address] Dr. Idania Roldan MUCOUS NONE SEEN Normal NONE SEEN [facility] Comment on above: Performed By: #### B MP, LIPA, YVETTE, LIVER #### [facility] [address] [place] [address] Dr. Idania Roldan RBC (U) [#/Vol] /uL Abnormal 0-[address] [facility] Comment on above: Performed By: #### B MP, LIPA, YVETTE, LIVER #### [facility] [address] [place] [address] Dr. Idania Roldan WBC NONE SEEN Normal NONE SEEN [facility] Comment on above: Performed By: #### B MP, LIPA, YVETTE, LIVER #### [facility] [address] [place] [address] Dr. Idania Roldan XR KUB 1 VIEWon [...] DENILSON AUSTIN Date: 2023-01-24 19:51 Normal [facility] AMYLASEon 01-21-2023 Amylase [Catalytic activity/Vol] 64 U/L Normal 25-115 [facility] Comment on above: Performed By: #### P T, PTT #### [facility] [address] [place] [address] Dr. Idania Roldan CBC AUTO DIFFon 01-21-2023 BASO # 0.0 103/ul Normal 0.0-0.1 [facility] Comment on above: Performed By: #### B MP, LIPA, YVETTE, LIVER #### [facility] [address] [place] [address] Dr. Idania Roldan Basophils/100 WBC (Bld) 0.2 % Normal 0.2-2.0 [facility] Comment on above: Performed By: #### B MP, LIPA, YVETTE, LIVER #### [facility] [address] [place] [address] Dr. Idania Roldan EO # 0.1 103/ul Normal 0.0-0.7 [facility] Comment on above: Performed By: #### B MP, LIPA, YVETTE, LIVER #### [facility] [address] [place] [address] Dr. Idania Roldan Eosinophils/100 WBC (Bld) 0.9 % Normal 0.9-7.0 [facility] Comment on above: Performed By: #### B MP, LIPA, YVETTE, LIVER #### [facility] [address] [place] [address] Dr. Idania Roldan Erythrocyte distribution width (RBC) [Ratio] 17.2 % Critically high 11.0-15.0 [facility] Comment on above: Performed By: #### B MP, LIPA, YVETTE, LIVER #### [facility] [address] [place] [address] Dr. Idania Roldan Hematocrit (Bld) [Volume fraction] 32.5 % Critically low 36.0-48.0 [facility] Comment on above: Performed By: #### B MP, LIPA, YVETTE, LIVER #### [facility] [address] [address] [address] Idania Roldan Hemoglobin (Bld) [Mass/Vol] 9.5 g/dL Critically low 12.0-16.0 [facility] Comment on above: Performed By: #### B MP, LIPA, YVETTE, LIVER #### [facility] [address] [place] [address] Dr. Idania Roldan IG # 0.01 10e3/ul Normal 0.00-0.03 [facility] Comment on above: Performed By: #### B MP, LIPA, YVETTE, LIVER #### [facility] [address] [address] [address] Idania Roldan IG % 0.2 % Normal 0.0-0.5 [facility] Comment on above: Performed By: #### B MP, LIPA, YVETTE, LIVER #### [facility] [address] [place] [address] Dr. Idania Roldan LYMPH # 2.0 103/ul Normal 1.2-3.8 [facility] Comment on above: Performed By: #### B MP, LIPA, YVETTE, LIVER #### [facility] [address] [place] [address] Dr. Idania Roldan Lymphocytes/100 WBC (Bld) 34.7 % Normal 20.5-60.0 [facility] Comment on above: Performed By: #### B MP, LIPA, YVETTE, LIVER #### [facility] [address] [address] [address] Idania Roldan MANUAL DIFF REQ NO Normal [facility] Comment on above: Performed By: #### B MP, LIPA, YVETTE, LIVER #### [facility] [address] [place] [address] Dr. Idania Roldan MCH (RBC) [Entitic mass] 20.5 pg Critically low 26.7-34.0 [facility] Comment on above: Performed By: #### B MP, LIPA, YVETTE, LIVER #### [facility] [address] [place] [address] Dr. Idania Roldan MCHC (RBC) [Mass/Vol] 29.2 g/dL Critically low 29.9-35.2 [facility] Comment on above: Performed By: #### B MP, LIPA, YVETTE, LIVER #### [facility] [address] [place] [address] Dr. Idania Roldan MCV (RBC) [Entitic vol] 70.2 fL Critically low 81.0-99.0 [facility] Comment on above: Performed By: #### B MP, LIPA, YVETTE, LIVER #### [facility] [address] [place] [address] Dr. Idania Roldan MONO # 0.5 103/ul Normal 0.3-0.8 [facility] Comment on above: Performed By: #### B MP, LIPA, YVETTE, LIVER #### [facility] [address] [place] [address] Dr. Idania Roldan Monocytes/100 WBC (Bld) 8.7 % Normal 1.7-12.0 [facility] Comment on above: Performed By: #### B MP, LIPA, YVETTE, LIVER #### [facility] [address] [place] [address] Dr. Idania Roldan NEUT # 3.2 103/ul Normal 1.4-6.5 [facility] Comment on above: Performed By: #### B MP, LIPA, YVETTE, LIVER #### [facility] [address] [place] [address] Dr. Idania Roldan Neutrophils/100 WBC (Bld) 55.3 % Normal 43.0-75.0 [facility] Comment on above: Performed By: #### B MP, LIPA, YVETTE, LIVER #### [facility] [address] [place] [address] Dr. Idania Roldan Platelet mean volume (Bld) [Entitic vol] 9.7 fL Normal 9.5-13.5 [facility] Comment on above: Performed By: #### B MP, LIPA, YVETTE, LIVER #### [facility] [address] [place] [address] Dr. Idania Roldan PLT 310 103/ul Normal 150-450 [facility] Comment on above: Performed By: #### B MP, LIPA, YVETTE, LIVER #### [facility] [address] [place] [address] Dr. Idania Roldan RBC 4.63 106/ul Normal 4.20-5.40 [facility] Comment on above: Performed By: #### B MP, LIPA, YVETTE, LIVER #### [facility] [address] [place] [address] Dr. Idania Roldan WBC 5.8 103/ul Normal 4.0-11.0 [facility] Comment on above: Performed By: #### B MP, LIPA, YVETTE, LIVER #### [facility] [address] [place] [address] Dr. Idania Roldan CULTURE URINEon 01-21-2023 CULTURE URINE Culture Observations : MODERATE GROWTH OF MIXED GENITAL ALE. NO POTENTIAL PATHOGENS SEEN. Normal [facility] Comment on above: Performed By: #### P T, PTT #### [facility] [address] [place] [address] Dr. Idania Roldan LIPASEon 01-21-2023 Lipase [Catalytic activity/Vol] 251.0 U/L Normal 73.0-393.0 [facility] Comment on above: Performed By: #### P T, PTT #### [facility] [address] [place] [address] Dr. Idania Roldan PROF 14(COMP METB)on 023 Albumin [Mass/Vol] 3.8 g/dL Normal 3.4-5.0 [facility] Comment on above: Performed By: #### P T, PTT #### [facility] [address] [address] [address] Idania Roldan Albumin/Globulin [Mass ratio] 1.0 {ratio} Normal [facility] Comment on above: Performed By: #### P T, PTT #### [facility] [address] [address] [address] Idania Roldan ALP [Catalytic activity/Vol] 107 U/L Normal 46-116 [facility] Comment on above: Performed By: #### P T, PTT #### [facility] [address] [place] [address] Dr. Idania Roldan ALT [Catalytic activity/Vol] 17 U/L Normal 14-59 [facility] Comment on above: Performed By: #### P T, PTT #### [facility] [address] [place] [address] Dr. Idania Roldan Anion gap [Moles/Vol] 13.3 mmol/L Normal [facility] Comment on above: Performed By: #### P T, PTT #### [facility] [address] [place] [address] Dr. Idania Roldan AST [Catalytic activity/Vol] 9 U/L Critically low 15-37 [facility] Comment on above: Performed By: #### P T, PTT #### [facility] [address] [place] [address] Dr. Idania Roldan Bilirubin [Mass/Vol] 0.3 mg/dL Normal 0.2-1.0 [facility] Comment on above: Performed By: #### P T, PTT #### [facility] [address] [place] [address] Dr. Idania Roldan Calcium [Mass/Vol] 9.0 mg/dL Normal 8.5-10.1 [facility] Comment on above: Performed By: #### P T, PTT #### [facility] [address] [place] [address] Dr. Idania Roldan Chloride [Moles/Vol] 103 mmol/L Normal 98-107 [facility] Comment on above: Performed By: #### P T, PTT #### [facility] [address] [address] [address] Idania Roldan CO2 [Moles/Vol] 28.2 mmol/L Normal 21.0-32.0 [facility] Comment on above: Performed By: #### P T, PTT #### [facility] [address] [address] [address] Idania Roldan Creatinine [Mass/Vol] 0.81 mg/dL Normal 0.55-1.02 [facility] Comment on above: Performed By: #### P T, PTT #### [facility] [address] [address] [address] Idania Roldan EGFR-AF COLOMBIAN >60 Normal >=60 [facility] Comment on above: Performed By: #### P T, PTT #### [facility] [address] [place] [address] Dr. Idania Roldan EGFR-NON AF COLOMBIAN >60 Normal >=60 [facility] Comment on above: Performed By: #### P T, PTT #### [facility] [address] [place] [address] Dr. Idania Roldan Globulin (S) [Mass/Vol] 3.9 g/dL Normal [facility] Comment on above: Performed By: #### P T, PTT #### [facility] [address] [place] [address] Dr. Idania Roldan Glucose [Mass/Vol] 93 mg/dL Normal 74-106 [facility] Comment on above: Performed By: #### P T, PTT #### [facility] [address] [address] [address] Idania Roldan Potassium [Moles/Vol] 3.5 mmol/L Normal 3.5-5.1 [facility] Comment on above: Performed By: #### P T, PTT #### [facility] [address] [address] [address] Idania Roldan Protein [Mass/Vol] 7.7 g/dL Normal 6.4-8.2 [facility] Comment on above: Performed By: #### P T, PTT #### [facility] [address] [address] [address] Idania Roldan Sodium [Moles/Vol] 141 mmol/L Normal 136-145 [facility] Comment on above: Performed By: #### P T, PTT #### [facility] [address] [place] [address] Dr. Idania Roldan Urea nitrogen [Mass/Vol] 11.0 mg/dL Normal 7.0-18.0 [facility] Comment on above: Performed By: #### P T, PTT #### [facility] [address] [place] [address] Dr. Idania Roldan Urea nitrogen/Creatinine [Mass ratio] 13.6 mg/mg Normal [facility] Comment on above: Performed By: #### P T, PTT #### [facility] [address] [place] [address] Dr. Idania Roldan UA RANDOM W/MICROSCOPICon BACTERIA SMALL Abnormal NONE SEEN [facility] Comment on above: Performed By: #### B MP, LIPA, YVETTE, LIVER #### [facility] [address] [place] [address] Dr. Idania Roldan Bilirubin Ql (U) SMALL Abnormal NEGATIVE [facility] Comment on above: Performed By: #### B MP, LIPA, YVETTE, LIVER #### [facility] [address] [place] [address] Dr. Idania Roldan CAST NONE SEEN Normal NONE SEEN [facility] Comment on above: Performed By: #### B MP, LIPA, YVETTE, LIVER #### [facility] [address] [place] [address] Dr. Idania Roldan Clarity (U) CLEAR Normal CLEAR [facility] Comment on above: Performed By: #### B MP, LIPA, YVETTE, LIVER #### [facility] [address] [place] [address] Dr. Idania Roldan Color (U) DK. YELLOW Normal YELLOW [facility] Comment on above: Performed By: #### B MP, LIPA, YVETTE, LIVER #### [facility] [address] [place] [address] Dr. Idania Roldan Crystals LM Nom (Urine sed) NONE SEEN Normal NONE SEEN [facility] Comment on above: Performed By: #### B MP, LIPA, YVETTE, LIVER #### [facility] [address] [place] [address] Dr. Idania Roldan Epithelial cells LM Ql (Urine sed) FEW Abnormal NONE SEEN /RARE [facility] Comment on above: Performed By: #### B MP, LIPA, YVETTE, LIVER #### [facility] [address] [place] [address] Dr. Idania Roldan Glucose Ql (U) Negative Normal NEGATIVE [facility] Comment on above: Performed By: #### B MP, LIPA, YVETTE, LIVER #### [facility] [address] [place] [address] Dr. Idania Roldan Hemoglobin Ql (U) LARGE Abnormal NEGATIVE [facility] Comment on above: Performed By: #### B MP, LIPA, YVETTE, LIVER #### [facility] [address] [place] [address] Dr. Idania Roldan Ketones Ql (U) TRACE Abnormal NEGATIVE [facility] Comment on above: Performed By: #### B MP, LIPA, YVETTE, LIVER #### [facility] [address] [place] [address] Dr. Idania Roldan LEUKOCYTES Negative Normal NEGATIVE [facility] Comment on above: Performed By: #### B MP, LIPA, YVETTE, LIVER #### [facility] [address] [place] [address] Dr. Idania Roldan MUCOUS MODERATE Abnormal NONE SEEN [facility] Comment on above: Performed By: #### B MP, LIPA, YVETTE, LIVER #### [facility] [address] [place] [address] Dr. Idania Roldan Nitrite Ql (U) Negative Normal NEGATIVE [facility] Comment on above: Performed By: #### B MP, LIPA, YVETTE, LIVER #### [facility] [address] [place] [address] Dr. Idania Roldan pH (U) 5.0 [pH] Normal 5-9 [facility] Comment on above: Performed By: #### B MP, LIPA, YVETTE, LIVER #### [facility] [address] [place] [address] Dr. Idania Roldan RBC (U) [#/Vol] /uL Abnormal 0-[address] [facility] Comment on above: Performed By: #### B MP, LIPA, YVETTE, LIVER #### [facility] [address] [place] [address] Dr. Idania Roldan SPEC GRAVITY >=1.030 Abnormal 1.005-<=1.02 5 [facility] Comment on above: Performed By: #### B MP, LIPA, YVETTE, LIVER #### [facility] [address] [place] [address] Dr. Idania Roldan UA PROTEIN TRACE Normal NEGATIVE/ TRACE [facility] Comment on above: Performed By: #### B MP, LIPA, YVETTE, LIVER #### [facility] [address] [place] [address] Dr. Idania Roldan Urobilinogen Qn (U) 0.2 {Bryan'U}/dL Normal 0.2 - 1. 0 [facility] Comment on above: Performed By: #### B MP, LIPA, YVETTE, LIVER #### [facility] [address] [place] [address] Dr. Idania Roldan WBC 0-2 Abnormal NONE SEEN [facility] Comment on above: Performed By: #### B MP, LIPA, YVETTE, LIVER #### [facility] [address] [place] [address] Dr. Idania Roldan Covid-19 PCR (CVDTB)on 09-11 SARS-CoV-2 (COVID-19) RNA MAMIE+probe Ql (Unsp spec) Detected Critically abnormal NOT DETECTED [facility] Comment on above: Result Comment: This test is not yet approved or cleared by the [place] FDA. When there are no FDA-approved or cleared tests available, and other criteria are met, FDA can make tests available under an emergency access mechanism called an Emergency Use Authorization (EUA). The EUA for this test is supported by the [place] of Health and Human Service's (HHS's) declaration [...] used). Performed By: #### C VDTB #### [facility] [address] [place] [address] Dr. Idania Roldan INFLUENZA A AND B AGon 10-06 INFLUANE SEE BELOW Normal [facility] Comment on above: Result Comment: Nega tive for Flu A protein angiten. Infection due to Flu A cannot be ruled out. Flu A angiten in the sample may be below the detection limit of the test. Performed By: #### P T, PTT #### [facility] [address] [place] [address] Dr. Idania [facility] BEL[facility] Normal [facility] Comment on above: Result Comment: Nega tive for Flu B protein antigen. Infection due to Flu B cannot be ruled out. Flu B antigen in the sample may be below the detection limit of the test. Performed By: #### P T, PTT #### [facility] [address] [place] [address] Dr. Idania Roldan INFLUENZA A AG Negative Normal NEGATIVE SEE COMMENT [facility] Comment on above: Performed By: #### P T, PTT #### [facility] [address] [place] [address] Dr. Idania Roldan INFLUENZA B AG Negative Normal NEGATIVE SEE COMMENT [facility] Comment on above: Performed By: #### P T, PTT #### [facility] [address] [place] [address] Dr. Idania Roldan INTERNAL CONTROLS Within Normal Limits Normal Wi thin Normal Limits [facility] Comment on above: Performed By: #### P T, PTT #### [facility] [address] [place] [address] Dr. Idania Roldan AMYLASEon 09-30-2022 Amylase [Catalytic activity/Vol] 62 U/L Normal 25-115 [facility] Comment on above: Performed By: #### B MP, LIPA, YVETTE, LIVER #### [facility] [address] [address] [address] Idania Roldan CBC AUTO DIFFon 09-30-2022 BASO # 0.0 103/ul Normal 0.0-0.1 [facility] Comment on above: Performed By: #### C BC #### [facility] [address] [address] [address] Idania Roldan Basophils/100 WBC (Bld) 0.3 % Normal 0.2-2.0 [facility] Comment on above: Performed By: #### C BC #### [facility] [address] [address] [address] Idania Roldan EO # 0.1 103/ul Normal 0.0-0.7 [facility] Comment on above: Performed By: #### C BC #### [facility] [address] [place] [address] Dr. Idania Roldan Eosinophils/100 WBC (Bld) 1.2 % Normal 0.9-7.0 [facility] Comment on above: Performed By: #### C BC #### [facility] [address] [place] [address] Dr. Idania Roldan Erythrocyte distribution width (RBC) [Ratio] 14.8 % Normal 11.0-15.0 [facility] Comment on above: Performed By: #### C BC #### [facility] [address] [place] [address] Dr. Idania Roldan Hematocrit (Bld) [Volume fraction] 31.8 % Critically low 36.0-48.0 [facility] Comment on above: Performed By: #### C BC #### [facility] [address] [address] [address] Idania Roldan Hemoglobin (Bld) [Mass/Vol] 9.6 g/dL Critically low 12.0-16.0 [facility] Comment on above: Performed By: #### C BC #### [facility] [address] [address] [address] Idania Roldan IG # 0.01 10e3/ul Normal 0.00-0.03 [facility] Comment on above: Performed By: #### C BC #### [facility] [address] [place] [address] Dr. Idania Roldan IG % 0.1 % Normal 0.0-0.5 [facility] Comment on above: Performed By: #### C BC #### [facility] [address] [place] [address] Dr. Idania Roldan LYMPH # 3.3 103/ul Normal 1.2-3.8 [facility] Comment on above: Performed By: #### C BC #### [facility] [address] [place] [address] Dr. Idania Roldan Lymphocytes/100 WBC (Bld) 45.4 % Normal 20.5-60.0 [facility] Comment on above: Performed By: #### C BC #### [facility] [address] [place] [address] Dr. Idania Roldan MANUAL DIFF REQ NO Normal [facility] Comment on above: Performed By: #### C BC #### [facility] [address] [place] [address] Dr. Idania Roldan MCH (RBC) [Entitic mass] 22.7 pg Critically low 26.7-34.0 [facility] Comment on above: Performed By: #### C BC #### [facility] [address] [place] [address] Dr. Idania Roldan MCHC (RBC) [Mass/Vol] 30.2 g/dL Normal 29.9-35.2 [facility] Comment on above: Performed By: #### C BC #### [facility] [address] [place] [address] Dr. Idania Roldan MCV (RBC) [Entitic vol] 75.4 fL Critically low 81.0-99.0 [facility] Comment on above: Performed By: #### C BC #### [facility] [address] [place] [address] Dr. Idania Roldan MONO # 0.5 103/ul Normal 0.3-0.8 [facility] Comment on above: Performed By: #### C BC #### [facility] [address] [place] [address] Dr. Idania Roldan Monocytes/100 WBC (Bld) 6.2 % Normal 1.7-12.0 [facility] Comment on above: Performed By: #### C BC #### [facility] [address] [place] [address] Dr. Idania Roldan NEUT # 3.4 103/ul Normal 1.4-6.5 [facility] Comment on above: Performed By: #### C BC #### [facility] [address] [place] [address] Dr. Idania Roldan Neutrophils/100 WBC (Bld) 46.8 % Normal 43.0-75.0 [facility] Comment on above: Performed By: #### C BC #### [facility] [address] [place] [address] Dr. Idania Roldan Platelet mean volume (Bld) [Entitic vol] 8.5 fL Critically low 9.5-13.5 [facility] Comment on above: Performed By: #### C BC #### [facility] [address] [place] [address] Dr. Idania Roldan PLT 273 103/ul Normal 150-450 [facility] Comment on above: Performed By: #### C BC #### [facility] [address] [place] [address] Dr. Idania Roldan RBC 4.22 106/ul Normal 4.20-5.40 [facility] Comment on above: Performed By: #### C BC #### [facility] [address] [place] [address] Dr. Idania Roldan WBC 7.2 103/ul Normal 4.0-11.0 [facility] Comment on above: Performed By: #### C BC #### [facility] [address] [place] [address] Dr. Idania Roldan CULTURE URINEon 09-30-2022 CULTURE URINE Culture Observations : MODERATE GROWTH OF MIXED GENITAL ALE. NO POTENTIAL PATHOGENS SEEN. Normal [facility] Comment on above: Performed By: #### P T, PTT #### [facility] [address] [place] [address] Dr. Idania Roldan LIPASEon 09-30-2022 Lipase [Catalytic activity/Vol] 256.0 U/L Normal 73.0-393.0 [facility] Comment on above: Performed By: #### B MP, LIPA, YVETTE, LIVER #### [facility] [address] [place] [address] Dr. Idania Roldan PROF 14(COMP METB)on 022 Albumin [Mass/Vol] 4.1 g/dL Normal 3.4-5.0 [facility] Comment on above: Performed By: #### B MP, LIPA, YVETTE, LIVER #### [facility] [address] [place] [address] Dr. Idania Roldan Albumin/Globulin [Mass ratio] 1.0 {ratio} Normal [facility] Comment on above: Performed By: #### B MP, LIPA, YVETTE, LIVER #### [facility] [address] [place] [address] Dr. Idania Roldan ALP [Catalytic activity/Vol] 93 U/L Normal 46-116 [facility] Comment on above: Performed By: #### B MP, LIPA, YVETTE, LIVER #### [facility] [address] [place] [address] Dr. Idania Roldan ALT [Catalytic activity/Vol] 13 U/L Critically low 14-59 [facility] Comment on above: Performed By: #### B MP, LIPA, YVETTE, LIVER #### [facility] [address] [place] [address] Dr. Idania Roldan Anion gap [Moles/Vol] 9.8 mmol/L Normal [facility] Comment on above: Performed By: #### B MP, LIPA, YVETTE, LIVER #### [facility] [address] [place] [address] Dr. Idania Roldan AST [Catalytic activity/Vol] 12 U/L Critically low 15-37 [facility] Comment on above: Performed By: #### B MP, LIPA, YVETTE, LIVER #### [facility] [address] [address] [address] Idania Roldan Bilirubin [Mass/Vol] 0.2 mg/dL Normal 0.2-1.0 [facility] Comment on above: Performed By: #### B MP, LIPA, YVETTE, LIVER #### [facility] [address] [place] [address] Dr. Idania Roldan Calcium [Mass/Vol] 9.2 mg/dL Normal 8.5-10.1 [facility] Comment on above: Performed By: #### B MP, LIPA, YVETTE, LIVER #### [facility] [address] [place] [address] Dr. Idania Roldan Chloride [Moles/Vol] 101 mmol/L Normal 98-107 [facility] Comment on above: Performed By: #### B MP, LIPA, YVETTE, LIVER #### [facility] [address] [place] [address] Dr. Idania Roldan CO2 [Moles/Vol] 31.8 mmol/L Normal 21.0-32.0 [facility] Comment on above: Performed By: #### B MP, LIPA, YVETTE, LIVER #### [facility] [address] [place] [address] Dr. Idania Roldan Creatinine [Mass/Vol] 0.71 mg/dL Normal 0.55-1.02 [facility] Comment on above: Performed By: #### B MP, LIPA, YVETTE, LIVER #### [facility] [address] [place] [address] Dr. Idania Roldan EGFR-AF COLOMBIAN >60 Normal >=60 [facility] Comment on above: Performed By: #### B MP, LIPA, YVETTE, LIVER #### [facility] [address] [place] [address] Dr. Idania Roldan EGFR-NON AF COLOMBIAN >60 Normal >=60 [facility] Comment on above: Performed By: #### B MP, LIPA, YVETTE, LIVER #### [facility] [address] [place] [address] Dr. Idania Roldan Globulin (S) [Mass/Vol] 4.0 g/dL Normal [facility] Comment on above: Performed By: #### B MP, LIPA, YVETTE, LIVER #### [facility] [address] [place] [address] Dr. Idania Roldan Glucose [Mass/Vol] 92 mg/dL Normal 74-106 [facility] Comment on above: Performed By: #### B MP, LIPA, YVETTE, LIVER #### [facility] [address] [place] [address] Dr. Idania Roldan Potassium [Moles/Vol] 3.6 mmol/L Normal 3.5-5.1 [facility] Comment on above: Performed By: #### B MP, LIPA, YVETTE, LIVER #### [facility] [address] [place] [address] Dr. Idania Roldan Protein [Mass/Vol] 8.1 g/dL Normal 6.4-8.2 [facility] Comment on above: Performed By: #### B MP, LIPA, YVETTE, LIVER #### [facility] [address] [place] [address] Dr. Idania Roldan Sodium [Moles/Vol] 139 mmol/L Normal 136-145 [facility] Comment on above: Performed By: #### B MP, LIPA, YVETTE, LIVER #### [facility] [address] [place] [address] Dr. Idania Roldan Urea nitrogen [Mass/Vol] 15.0 mg/dL Normal 7.0-18.0 [facility] Comment on above: Performed By: #### B MP, LIPA, YVETTE, LIVER #### [facility] [address] [place] [address] Dr. Idania Roldan Urea nitrogen/Creatinine [Mass ratio] 21.1 mg/mg Normal [facility] Comment on above: Performed By: #### B MP, LIPA, YVETTE, LIVER #### [facility] [address] [place] [address] Dr. Idania Roldan UA RANDOM W/MICROSCOPICon BACTERIA SMALL Abnormal NONE SEEN [facility] Comment on above: Performed By: #### B MP, LIPA, YVETTE, LIVER #### [facility] [address] [address] [address] Idania Roldan Bilirubin Ql (U) Negative Normal NEGATIVE [facility] Comment on above: Performed By: #### B MP, LIPA, YVETTE, LIVER #### [facility] [address] [address] [address] Idania Roldan CAST NONE SEEN Normal NONE SEEN [facility] Comment on above: Performed By: #### B MP, LIPA, YVETTE, LIVER #### [facility] [address] [place] [address] Dr. Idania Roldan Clarity (U) CLEAR Normal CLEAR [facility] Comment on above: Performed By: #### B MP, LIPA, YVETTE, LIVER #### [facility] [address] [place] [address] Dr. Idania Roldan Color (U) YELLOW Normal YELLOW [facility] Comment on above: Performed By: #### B MP, LIPA, YVETTE, LIVER #### [facility] [address] [address] [address] Idania Roldan Crystals LM Nom (Urine sed) NONE SEEN Normal NONE SEEN [facility] Comment on above: Performed By: #### B MP, LIPA, YVETTE, LIVER #### [facility] [address] [place] [address] Dr. Idania Roldan Epithelial cells LM Ql (Urine sed) FEW Abnormal NONE SEEN /RARE [facility] Comment on above: Performed By: #### B MP, LIPA, YVETTE, LIVER #### [facility] [address] [address] [address] Idania Roldan Glucose Ql (U) Negative Normal NEGATIVE [facility] Comment on above: Performed By: #### B MP, LIPA, YVETTE, LIVER #### [facility] [address] [place] [address] Dr. Idania Roldan Hemoglobin Ql (U) Negative Normal NEGATIVE [facility] Comment on above: Performed By: #### B MP, LIPA, YVETTE, LIVER #### [facility] [address] [place] [address] Dr. Idania Roldan Ketones Ql (U) Negative Normal NEGATIVE [facility] Comment on above: Performed By: #### B MP, LIPA, YVETTE, LIVER #### [facility] [address] [place] [address] Dr. Idania Roldan LEUKOCYTES SMALL Abnormal NEGATIVE [facility] Comment on above: Performed By: #### B MP, LIPA, YVETTE, LIVER #### [facility] [address] [address] [address] Idania Roldan MUCOUS TRACE Abnormal NONE SEEN [facility] Comment on above: Performed By: #### B MP, LIPA, YVETTE, LIVER #### [facility] [address] [address] [address] Idania Roldan Nitrite Ql (U) Negative Normal NEGATIVE [facility] Comment on above: Performed By: #### B MP, LIPA, YVETTE, LIVER #### [facility] [address] [place] [address] Dr. Idania Roldan pH (U) 7.0 [pH] Normal 5-9 [facility] Comment on above: Performed By: #### B MP, LIPA, YVETTE, LIVER #### [facility] [address] [address] [address] Idania Roldan RBC NONE SEEN Abnormal 0-2 [facility] Comment on above: Performed By: #### B MP, LIPA, YVETTE, LIVER #### [facility] [address] [place] [address] Dr. Idania Roldan SPEC GRAVITY 1.015 Normal 1.005-<=1.02 5 [facility] Comment on above: Performed By: #### B MP, LIPA, YVETTE, LIVER #### [facility] [address] [place] [address] Dr. Idania Roldan UA PROTEIN Negative Normal NEGATIVE/ TRACE [facility] Comment on above: Performed By: #### B MP, LIPA, YVETTE, LIVER #### [facility] [address] [address] [address] Idania Roldan Urobilinogen Qn (U) 0.2 {Bryan'U}/dL Normal 0.2 - 1. 0 [facility] Comment on above: Performed By: #### B MP, LIPA, YVETTE, LIVER #### [facility] [address] [address] [address] Idania Roldan WBC 5-10 Abnormal NONE SEEN [facility] Comment on above: Performed By: #### B MP, LIPA, YVETTE, LIVER #### [facility] [address] [address] [address] Idania Roldan Covid-19 PCR ([facility])on 09-10 SARS-CoV-2 (COVID-19) RNA MAMIE+probe Ql (Unsp spec) Not detected Normal NOT DETECTED [facility] Comment on above: Result Comment: This test is not yet approved or cleared by the [place] FDA. When there are no FDA-approved or cleared tests available, and other criteria are met, FDA can make tests available under an emergency access mechanism called an Emergency Use Authorization (EUA). The EUA for this test is supported by the [place] of Health and Human Service's (HHS's) declaration [...] SARS-CoV-2. Performed By: #### C VDTBH #### [facility] [address] [place] [address] Dr. Idania Roldan INFLUENZA A AND B AGon 09-21 INFLUANEGH SEE BELOW Normal [facility] Comment on above: Result Comment: Nega tive for Flu A protein angiten. Infection due to Flu A cannot be ruled out. Flu A angiten in the sample may be below the detection limit of the test. Performed By: #### B MP, LIPA, YVETTE, LIVER #### [facility] [address] [place] [address] Dr. Idania Roldan INFLUBNEGH SEE BELOW Normal [facility] Comment on above: Result Comment: Nega tive for Flu B protein antigen. Infection due to Flu B cannot be ruled out. Flu B antigen in the sample may be below the detection limit of the test. Performed By: #### B MP, LIPA, YVETTE, LIVER #### [facility] [address] [address] [address] Idania Roldan INFLUENZA A AG Negative Normal NEGATIVE SEE COMMENT [facility] Comment on above: Performed By: #### B MP, LIPA, YVETTE, LIVER #### [facility] [address] [address] [address] Idania Roldan INFLUENZA B AG Negative Normal NEGATIVE SEE COMMENT [facility] Comment on above: Performed By: #### B MP, LIPA, YVETTE, LIVER #### [facility] [address] [address] [address] Idania Roldan INTERNAL CONTROLS Within Normal Limits Normal Wi thin Normal Limits [facility] Comment on above: Performed By: #### B MP, LIPA, YVETTE, LIVER #### [facility] [address] [address] [address] Idania Roldan Covid-19 PCR ([facility])on 08-11 SARS-CoV-2 (COVID-19) RNA MAMIE+probe Ql (Unsp spec) Not detected Normal NOT DETECTED [facility] Comment on above: Result Comment: This test is not yet approved or cleared by the [place] FDA. When there are no FDA-approved or cleared tests available, and other criteria are met, FDA can make tests available under an emergency access mechanism called an Emergency Use Authorization (EUA). The EUA for this test is supported by the [employer] of Health and Human Service's (HHS's) declaration [...] with SARS-CoV-2. Performed By: #### B MP, LIPChristine, YVETTE, LIVER #### [facility] [address] [place] [address] Dr. Idania Roldan CBC AUTO DIFFon 08-21-2022 BASO # 0.0 103/ul Normal 0.0-0.1 [facility] Comment on above: Performed By: #### P T, PTT #### [facility] [address] [place] [address] Dr. Idania Roldan Basophils/100 WBC (Bld) 0.4 % Normal 0.2-2.0 [facility] Comment on above: Performed By: #### P T, PTT #### [facility] [address] [place] [address] Dr. Idania Roldan EO # 0.1 103/ul Normal 0.0-0.7 [facility] Comment on above: Performed By: #### P T, PTT #### [facility] [address] [place] [address] Dr. Idania Roldan Eosinophils/100 WBC (Bld) 1.3 % Normal 0.9-7.0 [facility] Comment on above: Performed By: #### P T, PTT #### [facility] [address] [place] [address] Dr. Idania Roldan Erythrocyte distribution width (RBC) [Ratio] 15.3 % Critically high 11.0-15.0 [facility] Comment on above: Performed By: #### P T, PTT #### [facility] [address] [place] [address] Dr. Idania Roldan Hematocrit (Bld) [Volume fraction] 32.1 % Critically low 36.0-48.0 [facility] Comment on above: Performed By: #### P T, PTT #### [facility] [address] [place] [address] Dr. Idania Roldan Hemoglobin (Bld) [Mass/Vol] 9.9 g/dL Critically low 12.0-16.0 [facility] Comment on above: Performed By: #### P T, PTT #### [facility] [address] [address] [address] Idania Roldan IG # 0.01 10e3/ul Normal 0.00-0.03 [facility] Comment on above: Performed By: #### P T, PTT #### [facility] [address] [address] [address] Idania Roldan IG % 0.1 % Normal 0.0-0.5 [facility] Comment on above: Performed By: #### P T, PTT #### [facility] [address] [address] [address] Idania Roldan LYMPH # 2.7 103/ul Normal 1.2-3.8 [facility] Comment on above: Performed By: #### P T, PTT #### [facility] [address] [place] [address] Dr. Idania Roldan Lymphocytes/100 WBC (Bld) 35.7 % Normal 20.5-60.0 [facility] Comment on above: Performed By: #### P T, PTT #### [facility] [address] [address] [address] Idania Roldan MANUAL DIFF REQ NO Normal [facility] Comment on above: Performed By: #### P T, PTT #### [facility] [address] [place] [address] Dr. Idania Roldan MCH (RBC) [Entitic mass] 24.8 pg Critically low 26.7-34.0 [facility] Comment on above: Performed By: #### P T, PTT #### [facility] [address] [address] [address] Idania Roldan MCHC (RBC) [Mass/Vol] 30.8 g/dL Normal 29.9-35.2 [facility] Comment on above: Performed By: #### P T, PTT #### [facility] [address] [place] [address] Dr. Idania Roldan MCV (RBC) [Entitic vol] 80.5 fL Critically low 81.0-99.0 [facility] Comment on above: Performed By: #### P T, PTT #### [facility] [address] [address] [address] Idania Roldan MONO # 0.5 103/ul Normal 0.3-0.8 [facility] Comment on above: Performed By: #### P T, PTT #### [facility] [address] [address] [address] Idania Roldan Monocytes/100 WBC (Bld) 6.1 % Normal 1.7-12.0 [facility] Comment on above: Performed By: #### P T, PTT #### [facility] [address] [place] [address] Dr. Idania Roldan NEUT # 4.2 103/ul Normal 1.4-6.5 [facility] Comment on above: Performed By: #### P T, PTT #### [facility] [address] [place] [address] Dr. Idania Roldan Neutrophils/100 WBC (Bld) 56.4 % Normal 43.0-75.0 [facility] Comment on above: Performed By: #### P T, PTT #### [facility] [address] [place] [address] Dr. Idania Roldan Platelet mean volume (Bld) [Entitic vol] 9.4 fL Critically low 9.5-13.5 [facility] Comment on above: Performed By: #### P T, PTT #### [facility] [address] [place] [address] Dr. Idania Roldan PLT 296 103/ul Normal 150-450 [facility] Comment on above: Performed By: #### P T, PTT #### [facility] [address] [place] [address] Dr. Idania Roldan RBC 3.99 106/ul Critically low 4.20-5.[address] [facility] Comment on above: Performed By: #### P T, PTT #### [facility] [address] [place] [address] Dr. Idania Roldan WBC 7.5 103/ul Normal 4.0-11.0 [facility] Comment on above: Performed By: #### P T, PTT #### [facility] [address] [address] [address] ABD/PELV W CONon [...] RUSSELL DUFF Date: 2022-08-21 12:35 Normal [facility] URINE PROFILEon 2 Bilirubin Ql (U) Unable to perform te sting due to color interference. Abnormal NEGATIVE [facility] Comment on above: Performed By: #### B MP, LIPA, YVETTE, LIVER #### [facility] [id number] Idania Roldan Clarity (U) TURBID Abnormal CLEAR [facility] Comment on above: Performed By: #### B MP, LIPA, YVETTE, LIVER #### [facility] [address] [address] [address] Idania Roldan Color (U) RED Abnormal YELLOW [facility] Comment on above: Performed By: #### B MP, LIPA, YVETTE, LIVER #### [facility] [address] [place] [address] Dr. Idania Roldan ERUAHD A micrscopic examina tion will be performed if indicated. Normal [facility] Comment on above: Performed By: #### B MP, LIPA, YVETTE, LIVER #### [facility] [address] [place] [address] Dr. Idania Roldan Glucose Ql (U) Unable to perform te sting due to color interference. Abnormal NEGATIVE [facility] Comment on above: Performed By: #### B MP, LIPA, YVETTE, LIVER #### [facility] [address] [place] [address] Dr. Idania Roldan Hemoglobin Ql (U) Unable to perform te sting due to color interference. Abnormal NEGATIVE [facility] Comment on above: Performed By: #### B MP, LIPA, YVETTE, LIVER #### [facility] [address] [place] [address] Dr. Iadnia Roldan Ketones Ql (U) Unable to perform te sting due to color interference. Abnormal NEGATIVE [facility] Comment on above: Performed By: #### B MP, LIPA, YVETTE, LIVER #### [facility] [address] [place] [address] Dr. Idania Roldan LEUKOCYTES Unable to perform te sting due to color interference. Abnormal NEGATIVE [facility] Comment on above: Performed By: #### B MP, LIPA, YVETTE, LIVER #### [facility] [address] [place] [address] Dr. Idania Roldan Nitrite Ql (U) Unable to perform te sting due to color interference. Abnormal NEGATIVE [facility] Comment on above: Performed By: #### B MP, LIPA, YVETTE, LIVER #### [facility] [address] [place] [address] Dr. Idania Roldan pH Unable to perform te sting due to color interference. Abnormal 5- [facility] Comment on above: Performed By: #### B MP, LIPA, YVETTE, LIVER #### [facility] [address] [place] [address] Dr. Idania Roldan SPEC GRAVITY 1.020 Normal 1.005-<=1.02 5 [facility] Comment on above: Performed By: #### B MP, LIPA, YVETTE, LIVER #### [facility] [address] [place] [address] Dr. Idania Roldan UA PROTEIN Unable to perform te sting due to color interference. Normal NEGATIVE/ TRACE [facility] Comment on above: Performed By: #### B MP, LIPA, YVETTE, LIVER #### [facility] [address] [place] [address] Dr. Idania Roldan UR MICRO IND INDICATED Normal [facility] Comment on above: Performed By: #### B MP, LIPA, YVETTE, LIVER #### [facility] [address] [place] [address] Dr. Idania Roldan UROBILINOGEN Unable to perform te sting due to color interference. Normal 0.2 - 1.0 [facility] Comment on above: Performed By: #### B MP, LIPA, YVETTE, LIVER #### [facility] [address] [place] [address] Dr. Idania Roldan PROF 14(COMP METB)on 022 Albumin [Mass/Vol] 4.2 g/dL Normal 3.4-5.0 [facility] Comment on above: Performed By: #### P T, PTT #### [facility] [address] [place] [address] Dr. Idania Roldan Albumin/Globulin [Mass ratio] 1.0 {ratio} Normal [facility] Comment on above: Performed By: #### P T, PTT #### [facility] [address] [place] [address] Dr. Idania Roldan ALP [Catalytic activity/Vol] 91 U/L Normal 46-116 [facility] Comment on above: Performed By: #### P T, PTT #### [facility] [address] [place] [address] Dr. Idania Roldan ALT [Catalytic activity/Vol] 15 U/L Normal 14-59 [facility] Comment on above: Performed By: #### P T, PTT #### [facility] [address] [address] [address] Idania Roldan Anion gap [Moles/Vol] 9.6 mmol/L Normal [facility] Comment on above: Performed By: #### P T, PTT #### [facility] [address] [address] [address] Idania Roldan AST [Catalytic activity/Vol] 14 U/L Critically low 15-37 [facility] Comment on above: Performed By: #### P T, PTT #### [facility] [address] [address] [address] Idania Roldan Bilirubin [Mass/Vol] 0.2 mg/dL Normal 0.2-1.0 [facility] Comment on above: Performed By: #### P T, PTT #### [facility] [address] [place] [address] Dr. Idania Roldan Calcium [Mass/Vol] 9.2 mg/dL Normal 8.5-10.1 [facility] Comment on above: Performed By: #### P T, PTT #### [facility] [address] [place] [address] Dr. Idania Roldan Chloride [Moles/Vol] 103 mmol/L Normal 98-107 [facility] Comment on above: Performed By: #### P T, PTT #### [facility] [address] [place] [address] Dr. Idania Roldan CO2 [Moles/Vol] 31.2 mmol/L Normal 21.0-32.0 [facility] Comment on above: Performed By: #### P T, PTT #### [facility] [address] [place] [address] Dr. Idania Roldan Creatinine [Mass/Vol] 0.76 mg/dL Normal 0.55-1.02 [facility] Comment on above: Performed By: #### P T, PTT #### [facility] [address] [place] [address] Dr. Idania Roldan EGFR-AF COLOMBIAN >60 Normal >=60 [facility] Comment on above: Performed By: #### P T, PTT #### [facility] [address] [address] [address] Idania Roldan EGFR-NON AF COLOMBIAN >60 Normal >=60 [facility] Comment on above: Performed By: #### P T, PTT #### [facility] [address] [address] [address] Idania Roldan Globulin (S) [Mass/Vol] 4.2 g/dL Normal [facility] Comment on above: Performed By: #### P T, PTT #### [facility] [address] [address] [address] Idania Roldan Glucose [Mass/Vol] 107 mg/dL Critically high 74-106 [facility] Comment on above: Performed By: #### P T, PTT #### [facility] [address] [address] [address] Idania Roldan Potassium [Moles/Vol] 3.8 mmol/L Normal 3.5-5.1 [facility] Comment on above: Performed By: #### P T, PTT #### [facility] [address] [address] [address] Idania Roldan Protein [Mass/Vol] 8.4 g/dL Critically high 6.4-8.2 [facility] Comment on above: Performed By: #### P T, PTT #### [facility] [address] [address] [address] Idania Roldan Sodium [Moles/Vol] 140 mmol/L Normal 136-145 [facility] Comment on above: Performed By: #### P T, PTT #### [facility] [address] [address] [address] Idania Roldan Urea nitrogen [Mass/Vol] 12.0 mg/dL Normal 7.0-18.0 [facility] Comment on above: Performed By: #### P T, PTT #### [facility] [address] [address] [address] Idania Roldan Urea nitrogen/Creatinine [Mass ratio] 15.8 mg/mg Normal [facility] Comment on above: Performed By: #### P T, PTT #### [facility] [address] [address] [address] Idania Roldan URINE MICROSCOPIC ONLYon BACTERIA NONE SEEN Normal NONE SEEN [facility] Comment on above: Performed By: #### B MP, LIPA, YVETTE, LIVER #### [facility] [address] [address] [address] Idania Roldan Bacteria identified Cx Nom (U) NOT INDICATED Normal [facility] Comment on above: Performed By: #### B MP, LIPA, YVETTE, LIVER #### [facility] [address] [place] [address] Dr. Idania Roldan CAST NONE SEEN Normal NONE SEEN [facility] Comment on above: Performed By: #### B MP, LIPA, YVETTE, LIVER #### [facility] [address] [place] [address] Dr. Idania Roldan Crystals LM Nom (Urine sed) NONE SEEN Normal NONE SEEN [facility] Comment on above: Performed By: #### B MP, LIPA, YVETTE, LIVER #### [facility] [address] [place] [address] Dr. Idania Roldan Epithelial cells LM Ql (Urine sed) RARE Normal NONE SEEN /RARE [facility] Comment on above: Performed By: #### B MP, LIPA, YVETTE, LIVER #### [facility] [address] [place] [address] Dr. Idania Roldan MUCOUS NONE SEEN Normal NONE SEEN [facility] Comment on above: Performed By: #### B MP, LIPA, YVETTE, LIVER #### [facility] [address] [place] [address] Dr. Idania Roldan RBC (U) [#/Vol] /uL Abnormal 0-[address] [facility] Comment on above: Performed By: #### B MP, LIPA, YVETTE, LIVER #### [facility] [address] [place] [address] Dr. Idania Roldan WBC 2-5 Abnormal NONE SEEN [facility] Comment on above: Performed By: #### B MP, LIPA, YVETTE, LIVER #### [facility] [address] [place] [address] Dr. Idania Roldan CBC AUTO DIFFon 08-19-2022 BASO # 0.0 103/ul Normal 0.0-0.1 [facility] Comment on above: Performed By: #### P T, PTT #### [facility] [address] [place] [address] Dr. Idania Roldan Basophils/100 WBC (Bld) 0.4 % Normal 0.2-2.0 [facility] Comment on above: Performed By: #### P T, PTT #### [facility] [address] [place] [address] Dr. Idania Roldan EO # 0.1 103/ul Normal 0.0-0.7 [facility] Comment on above: Performed By: #### P T, PTT #### [facility] [address] [place] [address] Dr. Idania Roldan Eosinophils/100 WBC (Bld) 2.0 % Normal 0.9-7.0 [facility] Comment on above: Performed By: #### P T, PTT #### [facility] [address] [place] [address] Dr. Idania Roldan Erythrocyte distribution width (RBC) [Ratio] 14.8 % Normal 11.0-15.0 [facility] Comment on above: Performed By: #### P T, PTT #### [facility] [address] [place] [address] Dr. Idania Roldan Hematocrit (Bld) [Volume fraction] 31.5 % Critically low 36.0-48.0 [facility] Comment on above: Performed By: #### P T, PTT #### [facility] [address] [place] [address] Dr. Idania Roldan Hemoglobin (Bld) [Mass/Vol] 9.5 g/dL Critically low 12.0-16.0 [facility] Comment on above: Performed By: #### P T, PTT #### [facility] [address] [place] [address] Dr. Idania Roldan IG # 0.01 10e3/ul Normal 0.00-0.03 [facility] Comment on above: Performed By: #### P T, PTT #### [facility] [address] [place] [address] Dr. Idania Roldan IG % 0.2 % Normal 0.0-0.5 [facility] Comment on above: Performed By: #### P T, PTT #### [facility] [address] [place] [address] Dr. Idania Roldan LYMPH # 1.4 103/ul Normal 1.2-3.8 [facility] Comment on above: Performed By: #### P T, PTT #### [facility] [address] [place] [address] Dr. dIania Roldan Lymphocytes/100 WBC (Bld) 29.9 % Normal 20.5-60.0 [facility] Comment on above: Performed By: #### P T, PTT #### [facility] [address] [place] [address] Dr. Idania Roldan MANUAL DIFF REQ NO Normal [facility] Comment on above: Performed By: #### P T, PTT #### [facility] [address] [place] [address] Dr. Idania Roldan MCH (RBC) [Entitic mass] 24.4 pg Critically low 26.7-34.0 [facility] Comment on above: Performed By: #### P T, PTT #### [facility] [address] [place] [address] Dr. Idania Roldan MCHC (RBC) [Mass/Vol] 30.2 g/dL Normal 29.9-35.2 [facility] Comment on above: Performed By: #### P T, PTT #### [facility] [address] [place] [address] Dr. Idania Roldan MCV (RBC) [Entitic vol] 80.8 fL Critically low 81.0-99.0 [facility] Comment on above: Performed By: #### P T, PTT #### [facility] [address] [place] [address] Dr. Idania Roldan MONO # 0.2 103/ul Critically low 0.3-0.8 [facility] Comment on above: Performed By: #### P T, PTT #### [facility] [address] [place] [address] Dr. Idania Roldan Monocytes/100 WBC (Bld) 5.2 % Normal 1.7-12.0 [facility] Comment on above: Performed By: #### P T, PTT #### [facility] [address] [place] [address] Dr. Idania Roldan NEUT # 2.9 103/ul Normal 1.4-6.5 [facility] Comment on above: Performed By: #### P T, PTT #### [facility] [address] [place] [address] Dr. Idania Roldan Neutrophils/100 WBC (Bld) 62.3 % Normal 43.0-75.0 [facility] Comment on above: Performed By: #### P T, PTT #### [facility] [address] [place] [address] Dr. Idania Roldan Platelet mean volume (Bld) [Entitic vol] 8.6 fL Critically low 9.5-13.5 [facility] Comment on above: Performed By: #### P T, PTT #### [facility] [address] [place] [address] Dr. Idania Roldan PLT 269 103/ul Normal 150-450 [facility] Comment on above: Performed By: #### P T, PTT #### [facility] [address] [place] [address] Dr. Idania Roldan RBC 3.90 106/ul Critically low 4.20-5.[address] [facility] Comment on above: Performed By: #### P T, PTT #### [facility] [address] [place] [address] Dr. Idania Roldan WBC 4.6 103/ul Normal 4.0-11.0 [facility] Comment on above: Performed By: #### P T, PTT #### [facility] [address] [place] [address] Dr. Idania Roldan PROF CHEM 8 (BAS METB)on Anion gap [Moles/Vol] 9.0 mmol/L Normal [facility] Comment on above: Performed By: #### B MP, LIPA, YVETTE, LIVER #### [facility] [address] [place] [address] Dr. Idania Roldan Calcium [Mass/Vol] 9.1 mg/dL Normal 8.5-10.1 [facility] Comment on above: Performed By: #### B MP, LIPA, YVETTE, LIVER #### [facility] [address] [place] [address] Dr. Idania Roldan Chloride [Moles/Vol] 104 mmol/L Normal 98-107 [facility] Comment on above: Performed By: #### B MP, LIPA, YVETTE, LIVER #### [facility] [address] [place] [address] Dr. Idania Roldan CO2 [Moles/Vol] 31.5 mmol/L Normal 21.0-32.0 [facility] Comment on above: Performed By: #### B MP, LIPA, YVETTE, LIVER #### [facility] [address] [place] [address] Dr. Idania Roldan Creatinine [Mass/Vol] 0.59 mg/dL Normal 0.55-1.02 [facility] Comment on above: Performed By: #### B MP, LIPA, YVETTE, LIVER #### [facility] [address] [place] [address] Dr. Idania Roldan EGFR-AF COLOMBIAN >60 Normal >=60 [facility] Comment on above: Performed By: #### B MP, LIPA, YVETTE, LIVER #### [facility] [address] [place] [address] Dr. Idania Roldan EGFR-NON AF COLOMBIAN >60 Normal >=60 [facility] Comment on above: Performed By: #### B MP, LIPA, YVETTE, LIVER #### [facility] [address] [place] [address] Dr. Idania Roldan Glucose [Mass/Vol] 90 mg/dL Normal 74-106 [facility] Comment on above: Performed By: #### B MP, LIPA, YVETTE, LIVER #### [facility] [address] [address] [address] Idania Roldan Potassium [Moles/Vol] 4.5 mmol/L Normal 3.5-5.1 [facility] Comment on above: Performed By: #### B MP, LIPA, YVETTE, LIVER #### [facility] [address] [place] [address] Dr. Idania Roldan Sodium [Moles/Vol] 140 mmol/L Normal 136-145 [facility] Comment on above: Performed By: #### B MP, LIPA, YVETTE, LIVER #### [facility] [address] [place] [address] Dr. Idania Roldan Urea nitrogen [Mass/Vol] 8.0 mg/dL Normal 7.0-18.0 [facility] Comment on above: Performed By: #### B MP, LIPA, YVETTE, LIVER #### [facility] [address] [place] [address] Dr. Idania Roldan Urea nitrogen/Creatinine [Mass ratio] 13.6 mg/mg Normal [facility] Comment on above: Performed By: #### B MP, LIPA, YVETTE, LIVER #### [facility] [address] [place] [address] Dr. Idania Roldan PROTIMEon 08-19-2022 INR Coag (PPP) [Relative time] 0.93 {INR} Normal [facility] Comment on above: Performed By: #### B MP, LIPA, YVETTE, LIVER #### [facility] [address] [place] [address] Dr. Idania Roldan INR GUIDELINES SEE BELOW Normal [facility] Comment on above: Result Comment: TARUN RED INR: 2.0 - 3.0 CONDITIONS NOT LISTED BELOW 2.5 - 3.5 FOR PROSTHETIC HEART VALVE REPLACEMENT 2.5 - 3.5 RECURRENT THROMBOSIS Performed By: #### B MP, LIPA, YVETTE, LIVER #### [facility] [address] [place] [address] Dr. Idania Roldan PT Coag (PPP) [Time] 10.1 s Normal 9.0-11.6 [facility] Comment on above: Performed By: #### B MP, LIPA, YVETTE, LIVER #### [facility] [address] [place] [address] Dr. Idania Roldan PTTon 08-19-2022 aPTT Coag (Bld) [Time] 28.1 s Normal 22.3-36.2 [facility] Comment on above: Performed By: #### B MP, LIPA, YVETTE, LIVER #### [facility] [address] [place] [address] Dr. Idania Roldan Covid-19 PCR ([facility])on 07-11 SARS-CoV-2 (COVID-19) RNA MAMIE+probe Ql (Unsp spec) Not detected Normal NOT DETECTED [facility] Comment on above: Result Comment: This test is not yet approved or cleared by the [place] FDA. When there are no FDA-approved or cleared tests available, and other criteria are met, FDA can make tests available under an emergency access mechanism called an Emergency Use Authorization (EUA). The EUA for this test is supported by the Offender Employment Specialist of Health and Human Service's (HHS's) declaration [...] Performed By: #### P T, PTT #### [facility] [address] [place] [address] Dr. Idania Roldan CBC AUTO DIFFon 07-10-2022 BASO # 0.0 103/ul Normal 0.0-0.1 [facility] Comment on above: Performed By: #### P T, PTT #### [facility] [address] [place] [address] Dr. Idania Roldan Basophils/100 WBC (Bld) 0.2 % Normal 0.2-2.0 [facility] Comment on above: Performed By: #### P T, PTT #### [facility] [address] [place] [address] Dr. Idania Roldan EO # 0.1 103/ul Normal 0.0-0.7 [facility] Comment on above: Performed By: #### P T, PTT #### [facility] [address] [place] [address] Dr. Idania Roldan Eosinophils/100 WBC (Bld) 1.3 % Normal 0.9-7.0 [facility] Comment on above: Performed By: #### P T, PTT #### [facility] [address] [place] [address] Dr. Idania Roldan Erythrocyte distribution width (RBC) [Ratio] 16.4 % Critically high 11.0-15.0 [facility] Comment on above: Performed By: #### P T, PTT #### [facility] [address] [place] [address] Dr. Idania Roldan Hematocrit (Bld) [Volume fraction] 33.2 % Critically low 36.0-48.0 [facility] Comment on above: Performed By: #### P T, PTT #### [facility] [address] [place] [address] Dr. Idania Roldan Hemoglobin (Bld) [Mass/Vol] 10.3 g/dL Critically low 12.0-16.0 [facility] Comment on above: Performed By: #### P T, PTT #### [facility] [address] [place] [address] Dr. Idania Roldan IG # 0.01 10e3/ul Normal 0.00-0.03 [facility] Comment on above: Performed By: #### P T, PTT #### [facility] [address] [place] [address] Dr. Idania Roldan IG % 0.2 % Normal 0.0-0.5 [facility] Comment on above: Performed By: #### P T, PTT #### [facility] [address] [address] [address] Idania Roldan LYMPH # 1.8 103/ul Normal 1.2-3.8 [facility] Comment on above: Performed By: #### P T, PTT #### [facility] [address] [address] [address] Idania Roldan Lymphocytes/100 WBC (Bld) 38.8 % Normal 20.5-60.0 [facility] Comment on above: Performed By: #### P T, PTT #### [facility] [address] [place] [address] Dr. Idania Roldan MANUAL DIFF REQ NO Normal [facility] Comment on above: Performed By: #### P T, PTT #### [facility] [address] [place] [address] Dr. Idania Roldan MCH (RBC) [Entitic mass] 25.9 pg Critically low 26.7-34.0 [facility] Comment on above: Performed By: #### P T, PTT #### [facility] [address] [place] [address] Dr. Idania Roldan MCHC (RBC) [Mass/Vol] 31.0 g/dL Normal 29.9-35.2 [facility] Comment on above: Performed By: #### P T, PTT #### [facility] [address] [place] [address] Dr. Idania Roldan MCV (RBC) [Entitic vol] 83.4 fL Normal 81.0-99.0 [facility] Comment on above: Performed By: #### P T, PTT #### [facility] [address] [place] [address] Dr. Idania Roldan MONO # 0.3 103/ul Normal 0.3-0.8 [facility] Comment on above: Performed By: #### P T, PTT #### [facility] [address] [place] [address] Dr. Idania Roldan Monocytes/100 WBC (Bld) 6.1 % Normal 1.7-12.0 [facility] Comment on above: Performed By: #### P T, PTT #### [facility] [address] [address] [address] Idania Roldan NEUT # 2.5 103/ul Normal 1.4-6.5 [facility] Comment on above: Performed By: #### P T, PTT #### [facility] [address] [address] [address] Idania Roldan Neutrophils/100 WBC (Bld) 53.4 % Normal 43.0-75.0 [facility] Comment on above: Performed By: #### P T, PTT #### [facility] [address] [place] [address] Dr. Idania Roldan Platelet mean volume (Bld) [Entitic vol] 10.1 fL Normal 9.5-13.5 [facility] Comment on above: Performed By: #### P T, PTT #### [facility] [address] [place] [address] Dr. Idania Roldan PLT 239 103/ul Normal 150-450 [facility] Comment on above: Performed By: #### P T, PTT #### [facility] [address] [place] [address] Dr. Idania Roldan RBC 3.98 106/ul Critically low 4.20-5.40 [facility] Comment on above: Performed By: #### P T, PTT #### [facility] [address] [place] [address] Dr. Idania Roldan WBC 4.6 103/ul Normal 4.0-11.0 [facility] Comment on above: Performed By: #### P T, PTT #### [facility] [address] [place] [address] Dr. Idania Roldan PROF CHEM 8 (BAS METB)on Anion gap [Moles/Vol] 8.4 mmol/L Normal [facility] Comment on above: Performed By: #### B MP #### [facility] [address] [place] [address] Dr. Idania Roldan Calcium [Mass/Vol] 9.3 mg/dL Normal 8.5-10.1 [facility] Comment on above: Performed By: #### B MP #### [facility] [address] [address] [address] Idania Roldan Chloride [Moles/Vol] 103 mmol/L Normal 98-107 [facility] Comment on above: Performed By: #### B MP #### [facility] [address] [address] [address] Idania Roldan CO2 [Moles/Vol] 32.9 mmol/L Critically high 21.0-32.0 [facility] Comment on above: Performed By: #### B MP #### [facility] [address] [address] [address] Idania Roldan Creatinine [Mass/Vol] 0.70 mg/dL Normal 0.55-1.02 [facility] Comment on above: Performed By: #### B MP #### [facility] [address] [address] [address] Idania Roldan EGFR-AF COLOMBIAN >60 Normal >=60 [facility] Comment on above: Performed By: #### B MP #### [facility] [address] [address] [address] Idania Roldan EGFR-NON AF COLOMBIAN >60 Normal >=60 [facility] Comment on above: Performed By: #### B MP #### [facility] [address] [address] [address] Idania Roldan Glucose [Mass/Vol] 73 mg/dL Critically low 74-106 [facility] Comment on above: Performed By: #### B MP #### [facility] [address] [address] [address] Idania Roldan Potassium [Moles/Vol] 4.3 mmol/L Normal 3.5-5.1 [facility] Comment on above: Performed By: #### B MP #### [facility] [address] [place] [address] Dr. Idania Roldan Sodium [Moles/Vol] 140 mmol/L Normal 136-145 [facility] Comment on above: Performed By: #### B MP #### [facility] [address] [place] [address] Dr. Idania Roldan Urea nitrogen [Mass/Vol] 16.0 mg/dL Normal 7.0-18.0 [facility] Comment on above: Performed By: #### B MP #### [facility] [address] [place] [address] Dr. Idania Roldan Urea nitrogen/Creatinine [Mass ratio] 22.9 mg/mg Normal [facility] Comment on above: Performed By: #### B MP #### [facility] [address] [place] [address] Dr. Idania Roldan PROTIMEon 07-10-2022 INR Coag (PPP) [Relative time] 1.00 {INR} Normal [facility] Comment on above: Performed By: #### P T, PTT #### [facility] [address] [place] [address] Dr. Idania Roldan INR GUIDELINES SEE BELOW Normal [facility] Comment on above: Result Comment: TARUN RED INR: 2.0 - 3.0 CONDITIONS NOT LISTED BELOW 2.5 - 3.5 FOR PROSTHETIC HEART VALVE REPLACEMENT 2.5 - 3.5 RECURRENT THROMBOSIS Performed By: #### P T, PTT #### [facility] [address] [place] [address] Dr. Idania Roldan PT Coag (PPP) [Time] 10.8 s Normal 9.0-11.6 [facility] Comment on above: Performed By: #### P T, PTT #### [facility] [address] [place] [address] Dr. Idania Roldan PTTon 07-10-2022 aPTT Coag (Bld) [Time] 29.3 s Normal 22.3-36.2 [facility] Comment on above: Performed By: #### P T, PTT #### [facility] [address] [place] [address] Dr. Idania Roldan Operative Reporton 2 Operative Report MR#: [id number] I [facility] Pt. Name: Elvi Moore Room #: [id number] Discharge 06/01/2022 Date: Birthdate: 1980 OPERATIVE REPORT DATE OF SURGERY: 06/01/2022 SURGEON: Kevin Lane M.D. RECOIL SPRING WINDER: Duy Cavaozs ANESTHESIA: General anesthesia. ESTIMATED BLOOD LOSS: Per [...] arthrotomy was closed with soft #2 interrupted [id number]-[id number] suture. The remainder of the incision closed in layered fashion. Sterile dressing applied. At the conclusion of the case, all sponge and needle counts correct. I was present for the critical portions of this case. Electronically Signed by: Kevin Lane M.D. 06/09/2022 07:[address] M.D. Date Dict: 06/03/2022/07:15 A/Kevin Lane M.D. Date Trans: 06/03/2022 08:09 A/taylor [id number] cc: Arleth Acharya M.D. [address], [facility] [id number] [place] [facility] *ANAEROBIC CULTUREon 022 *ANAEROBIC CULTURE Clinical Report: (D) Specimen/Source: FLUID/INTRAOP SPEC Collected: 06/01/2022 14:08 Status: Final Last Updated: 06/06/2022 06:35 (1) 1. LEFT KNEE JOINT FLUID CULT RES (Final) No Anaerobes Isolated 5 Days Normal [facility] Comment on above: Order Comment: 1. LE FT KNEE JOINT FLUID Performed By: #### 3 0312 ####[facility].[address] *ANAEROBIC CULTURE Clinical Report: (D) Specimen/Source: TISSUE/INTRAOP SPEC Collected: 06/01/2022 14:08 Status: Final Last Updated: 06/06/2022 06:35 (1) 2. LEFT KNEE MEDIAL SYNOVIUM CULT RES (Final) No Anaerobes Isolated 5 Days Normal [facility] Comment on above: Order Comment: 2. LE FT KNEE MEDIAL SYNOVIUM Performed By: #### 6 1405 #### [facility] [address] *ANAEROBIC CULTURE Clinical Report: (D) Specimen/Source: TISSUE/INTRAOP SPEC Collected: 06/01/2022 14:08 Status: Final Last Updated: 06/06/2022 06:35 (1) 3. LEFT KNEE LATERAL SYNOVIUM CULT RES (Final) No Anaerobes Isolated 5 Days Normal [facility] Comment on above: Order Comment: 3. LE FT KNEE LATERAL SYNOVIUM Performed By: #### 6 1405 #### [facility] [address] [place] [address], [facility] *BODY FLUID CULTUREon 2021 *BODY FLUID CULTURE Clinical Report: (D) Specimen/Source: FLUID/INTRAOP SPEC Collected: 06/01/2022 14:08 Status: Final Last Updated: 06/06/2022 06:39 (1) 1. LEFT KNEE JOINT FLUID GRAM (Final) Quantity Not Sufficient CULT RES (Final) No Growth Day 5 Normal [facility] Comment on above: Order Comment: 1. LE FT KNEE JOINT FLUID Performed By: #### 3 0318 ####[facility] [place] [address], [facility] *TISSUE CULTUREon 06-01-2022 *TISSUE CULTURE Clinical Report: (D) Specimen/Source: TISSUE/INTRAOP SPEC Collected: 06/01/2022 14:08 Status: Final Last Updated: 06/06/2022 06:40 (1) 2. LEFT KNEE MEDIAL SYNOVIUM GRAM (Final) Many Polys No Bacteria Seen CULT RES (Final) No Growth Day 5 Normal [facility] Comment on above: Order Comment: 2. LE FT KNEE MEDIAL SYNOVIUM Performed By: #### 3 0338 ####[facility] [address] *TISSUE CULTURE Clinical Report: (D) Specimen/Source: TISSUE/INTRAOP SPEC Collected: 06/01/2022 14:08 Status: Final Last Updated: 06/06/2022 06:39 (1) 3. LEFT KNEE LATERAL SYNOVIUM GRAM (Final) Many Polys No Bacteria Seen CULT RES (Final) No Growth Day 5 Normal [facility] Comment on above: Order Comment: 3. LE FT KNEE LATERAL SYNOVIUM Performed By: #### 3 0338 ####[facility] [address] POC GLUCOSE LABon 06-01-2022 Glucose [Mass/Vol] 86 mg/dL Normal 70-100 [facility] Comment on above: Performed By: #### 8 [id number] #### [facility] [address] [place], [place] [id number] [place] [address] PORTABLE KNEE LEFT 2 VWSon 0 06-01-2022 PORTABLE KNEE LEFT 2 VWS [facility] Department of Radiology [address] [place] [address] Patient Name: ELVI MOORE : [...] planned Electronically signed: Yvette Andrade. Transcribed by: [email or web address], User Resident: Electronically Signed by: YVETTE ANDRADE @ 06/02/2022 08:53 AM Normal [facility] Comment on above: Order Comment: Hardw are Evaluation, in PACU *MRSA/MSSA DNA NASALon 05-26 *MRSA/MSSA DNA NASAL Clinical Report: (D) Specimen: NASAL SWAB Collected: 05/26/2022 15:23 Status: Final Last Updated: 05/27/2022 13:43 MSSA DNA (Final) Negative MRSA DNA (Final) Negative Normal [facility] Comment on above: Performed By: #### 3 1595 #### [facility] [address] [place] [address], [facility] C REACTIVE PROTEINon 022 CRP [Mass/Vol] 1.3 mg/L Normal 0.0-7.0 [facility] Comment on above: Performed By: #### 6 1405 #### [facility] [address] [place] [address], [facility] CBC W/DIFFon 05-26-2022 ABS IMM GRANS 0.0 10*3/uL Normal 0.0-0.2 [facility] Comment on above: Performed By: #### 6 1405 #### [facility] [address] [place] [address], [facility] ABS NEUTROPHILS 2.5 10*3/uL Normal 1.6-7.6 [facility] Comment on above: Performed By: #### 6 1405 #### [facility] [address] [place] [address], [facility] Basophils (Bld) [#/Vol] 0.0 10*3/uL Normal 0.0-0.2 [facility] Comment on above: Performed By: #### 6 1405 #### [facility] [address] [place] [address], [facility] Basophils/100 WBC (Bld) 0.3 % Normal 0.0-1.0 [facility] Comment on above: Performed By: #### 6 1405 #### [facility] [address] [place] [address], [facility] Eosinophils (Bld) [#/Vol] 0.1 10*3/uL Normal 0.0-0.5 [facility] Comment on above: Performed By: #### 6 1405 #### [facility] [address] [place] [address], [facility] Eosinophils/100 WBC (Bld) 1.5 % Normal 0.0-6.0 [facility] Comment on above: Performed By: #### 6 1405 #### [facility] [address] [place] [address], [facility] Erythrocyte distribution width (RBC) [Ratio] 15.9 % High 11.5-15.0 [facility] Comment on above: Performed By: #### 6 1405 #### [facility] [address] Hematocrit (Bld) [Volume fraction] 35.0 % Low 36.0-45.0 [facility] Comment on above: Performed By: #### 6 1405 #### [facility] [address] Hemoglobin (Bld) [Mass/Vol] 10.6 g/dL Low 12.0-15.0 [facility] Comment on above: Performed By: #### 6 1405 #### [facility] [address] IMMATURE GRANS 0.2 % Normal 0.0-1.0 [facility] Comment on above: Performed By: #### 6 1405 #### [facility] [address] Lymphocytes (Bld) [#/Vol] 2.8 10*3/uL Normal 1.2-4.0 [facility] Comment on above: Performed By: #### 6 1405 #### [facility] [address] Lymphocytes/100 WBC (Bld) 48.0 % High 20.0-45.0 [facility] Comment on above: Performed By: #### 6 1405 #### [facility] [address] MCH (RBC) [Entitic mass] 24.5 pg Low 27.0-33.0 [facility] Comment on above: Performed By: #### 6 1405 #### [facility] [address] MCHC (RBC) [Mass/Vol] 30.3 g/dL Low 32.0-35.0 [facility] Comment on above: Performed By: #### 6 1405 #### [facility] [address] MCV (RBC) [Entitic vol] 81.0 fL Low 82.0-98.0 [facility] Comment on above: Performed By: #### 6 1405 #### [facility] [address] [place] [address], [facility] Monocytes (Bld) [#/Vol] 0.4 10*3/uL Normal 0.1-1.0 [facility] Comment on above: Performed By: #### 6 1405 #### [facility] [address] MONOS 6.8 % Normal 5.0-12.0 [facility] Comment on above: Performed By: #### 6 1405 #### [facility] [address] Neutrophils/100 WBC (Bld) 43.2 % Normal 40.0-72.0 [facility] Comment on above: Performed By: #### 6 1405 #### [facility] [address] Nucleated RBC/100 WBC (Bld) [Ratio] 0 % Normal 0-0 [facility] Comment on above: Performed By: #### 6 1405 #### [facility] [address] PLAT CNT 246 10*3/uL Normal 150-400 [facility] Comment on above: Performed By: #### 6 1405 #### [facility] [address] RBC (Bld) [#/Vol] 4.32 10*6/uL Normal 3.80-5.00 [facility] Comment on above: Performed By: #### 6 1405 #### [facility] [address] [place] [address], [facility] WBC (Bld) [#/Vol] 5.87 10*3/uL Normal 4.00-10.60 [facility] Comment on above: Performed By: #### 6 1405 #### [facility] [address] [place] [address], [facility] HEMOGLOBIN A1Con 05-26-2022 Glucose [Moles/Vol] 100 mmol/L Normal [facility] Comment on above: Performed By: #### 3 1791 #### [facility] [address] [place] [address], [facility] HbA1c (Bld) [Mass fraction] 5.1 % Normal 4.0-6.0 [facility] Comment on above: Performed By: #### 3 1791 #### [facility] [address] [place] [address], [facility] SEDIMENTATION RATEon 022 SED RATE 17 mm/hr Normal 0-20 [facility] Comment on above: Performed By: #### 6 1405 #### [facility] [address] US KIDNEYS BLADDERon 022 US KIDNEYS [...] RUSSELL DUFF Date: 2022-05-02 16:18 Normal [facility] CBC AUTO DIFFon 04-29-2022 BASO # 0.0 103/ul Normal 0.0-0.1 [facility] Comment on above: Performed By: #### B MP, LIPA, YVETTE, LIVER #### [facility] [address] [place] [address] Dr. Idania Roldan Basophils/100 WBC (Bld) 0.3 % Normal 0.2-2.0 [facility] Comment on above: Performed By: #### B MP, LIPA, YVETTE, LIVER #### [facility] [address] [place] [address] Dr. Idania Roldan EO # 0.1 103/ul Normal 0.0-0.7 [facility] Comment on above: Performed By: #### B MP, LIPA, YVETTE, LIVER #### [facility] [address] [place] [address] Dr. Idania Roldan Eosinophils/100 WBC (Bld) 0.9 % Normal 0.9-7.0 [facility] Comment on above: Performed By: #### B MP, LIPA, YVETTE, LIVER #### [facility] [address] [place] [address] Dr. Idania Roldan Erythrocyte distribution width (RBC) [Ratio] 15.4 % Critically high 11.0-15.0 [facility] Comment on above: Performed By: #### B MP, LIPA, YVETTE, LIVER #### [facility] [address] [place] [address] Dr. Idania Roldan Hematocrit (Bld) [Volume fraction] 36.0 % Normal 36.0-48.0 [facility] Comment on above: Performed By: #### B MP, LIPA, YVETTE, LIVER #### [facility] [address] [place] [address] Dr. Idania Roldan Hemoglobin (Bld) [Mass/Vol] 11.2 g/dL Critically low 12.0-16.0 [facility] Comment on above: Performed By: #### B MP, LIPA, YVETTE, LIVER #### [facility] [address] [place] [address] Dr. Idania Roldan IG # 0.02 10e3/ul Normal 0.00-0.03 [facility] Comment on above: Performed By: #### B MP, LIPA, YVETTE, LIVER #### [facility] [address] [place] [address] Dr. Idania Roldan IG % 0.3 % Normal 0.0-0.5 [facility] Comment on above: Performed By: #### B MP, LIPA, YVETTE, LIVER #### [facility] [address] [place] [address] Dr. Idania Roldan LYMPH # 2.5 103/ul Normal 1.2-3.8 [facility] Comment on above: Performed By: #### B MP, LIPA, YVETTE, LIVER #### [facility] [address] [place] [address] Dr. Idania Roldan Lymphocytes/100 WBC (Bld) 36.2 % Normal 20.5-60.0 [facility] Comment on above: Performed By: #### B MP, LIPA, YVETTE, LIVER #### [facility] [address] [place] [address] Dr. Idania Roldan MANUAL DIFF REQ NO Normal [facility] Comment on above: Performed By: #### B MP, LIPA, YVETTE, LIVER #### [facility] [address] [place] [address] Dr. Idania Roldan MCH (RBC) [Entitic mass] 24.9 pg Critically low 26.7-34.0 [facility] Comment on above: Performed By: #### B MP, LIPA, YVETTE, LIVER #### [facility] [address] [place] [address] Dr. Idania Roldan MCHC (RBC) [Mass/Vol] 31.1 g/dL Normal 29.9-35.2 [facility] Comment on above: Performed By: #### B MP, LIPA, YVETTE, LIVER #### [facility] [address] [place] [address] Dr. Idania Roldan MCV (RBC) [Entitic vol] 80.2 fL Critically low 81.0-99.0 [facility] Comment on above: Performed By: #### B MP, LIPA, YVETTE, LIVER #### [facility] [address] [place] [address] Dr. Idania Roldan MONO # 0.5 103/ul Normal 0.3-0.8 [facility] Comment on above: Performed By: #### B MP, LIPA, YVETTE, LIVER #### [facility] [address] [place] [address] Dr. Idania Roldan Monocytes/100 WBC (Bld) 6.7 % Normal 1.7-12.0 [facility] Comment on above: Performed By: #### B MP, LIPA, YVETTE, LIVER #### [facility] [address] [place] [address] Dr. Idania Roldan NEUT # 3.8 103/ul Normal 1.4-6.5 [facility] Comment on above: Performed By: #### B MP, LIPA, YVETTE, LIVER #### [facility] [address] [place] [address] Dr. Idania Roldan Neutrophils/100 WBC (Bld) 55.6 % Normal 43.0-75.0 [facility] Comment on above: Performed By: #### B MP, LIPA, YVETTE, LIVER #### [facility] [address] [place] [address] Dr. Idania Roldan Platelet mean volume (Bld) [Entitic vol] 9.9 fL Normal 9.5-13.5 [facility] Comment on above: Performed By: #### B MP, LIPA, YVETTE, LIVER #### [facility] [address] [place] [address] Dr. Idania Roldan PLT 265 103/ul Normal 150-450 [facility] Comment on above: Performed By: #### B MP, LIPA, YVETTE, LIVER #### [facility] [address] [place] [address] Dr. Idania Roldan RBC 4.49 106/ul Normal 4.20-5.40 [facility] Comment on above: Performed By: #### B MP, LIPA, YVETTE, LIVER #### [facility] [address] [place] [address] Dr. Idania Roldan WBC 6.8 103/ul Normal 4.0-11.0 [facility] Comment on above: Performed By: #### B MP, LIPA, YVETTE, LIVER #### [facility] [address] [place] [address] Dr. Idania Roldan ER URINE PROFILEon 2 Bilirubin Ql (U) Negative Normal NEGATIVE [facility] Comment on above: Performed By: #### P T, PTT #### [facility] [address] [place] [address] Dr. Idania Roldan Clarity (U) CLEAR Normal CLEAR [facility] Comment on above: Performed By: #### P T, PTT #### [facility] [address] [place] [address] Dr. Idania Roldan Color (U) LT. YELLOW Normal YELLOW [facility] Comment on above: Performed By: #### P T, PTT #### [facility] [address] [place] [address] Dr. Idania MENDOSA A micrscopic examina tion will be performed if indicated. Normal [facility] Comment on above: Performed By: #### P T, PTT #### [facility] [address] [place] [address] Dr. Idania Roldan Glucose Ql (U) Negative Normal NEGATIVE [facility] Comment on above: Performed By: #### P T, PTT #### [facility] [address] [place] [address] Dr. Idania Roldan Hemoglobin Ql (U) LARGE Abnormal NEGATIVE [facility] Comment on above: Performed By: #### P T, PTT #### [facility] [address] [place] [address] Dr. Idania Roldan Ketones Ql (U) Negative Normal NEGATIVE [facility] Comment on above: Performed By: #### P T, PTT #### [facility] [address] [place] [address] Dr. Idania Roldan LEUKOCYTES TRACE Abnormal NEGATIVE [facility] Comment on above: Performed By: #### P T, PTT #### [facility] [address] [place] [address] Dr. Idania Roldan Nitrite Ql (U) Negative Normal NEGATIVE [facility] Comment on above: Performed By: #### P T, PTT #### [facility] [address] [place] [address] Dr. Idania Roldan pH (U) 6.0 [pH] Normal 5-9 [facility] Comment on above: Performed By: #### P T, PTT #### [facility] [address] [place] [address] Dr. Idania Roldan SPEC GRAVITY 1.010 Normal 1.005-<=1.02 5 [facility] Comment on above: Performed By: #### P T, PTT #### [facility] [address] [place] [address] Dr. Idania Roldan UA PROTEIN Negative Normal NEGATIVE/ TRACE [facility] Comment on above: Performed By: #### P T, PTT #### [facility] [address] [place] [address] Dr. Idania Roldan UR MICRO IND INDICATED Normal [facility] Comment on above: Performed By: #### P T, PTT #### [facility] [address] [place] [address] Dr. Idania Roldan Urobilinogen Qn (U) 0.2 {Bryan'U}/dL Normal 0.2 - 1. 0 [facility] Comment on above: Performed By: #### P T, PTT #### [facility] [address] [place] [address] Dr. Idania Roldan PROF CHEM 8 (BAS METB)on Anion gap [Moles/Vol] 10.9 mmol/L Normal [facility] Comment on above: Performed By: #### P T, PTT #### [facility] [address] [place] [address] Dr. Idania Roldan Calcium [Mass/Vol] 8.9 mg/dL Normal 8.5-10.1 [facility] Comment on above: Performed By: #### P T, PTT #### [facility] [address] [place] [address] Dr. Idania Roldan Chloride [Moles/Vol] 104 mmol/L Normal 98-107 [facility] Comment on above: Performed By: #### P T, PTT #### [facility] [address] [address] [address] Idania Roldan CO2 [Moles/Vol] 28.9 mmol/L Normal 21.0-32.0 [facility] Comment on above: Performed By: #### P T, PTT #### [facility] [address] [place] [address] Dr. Idania Roldan Creatinine [Mass/Vol] 0.71 mg/dL Normal 0.55-1.02 [facility] Comment on above: Performed By: #### P T, PTT #### [facility] [address] [place] [address] Dr. Idania Roldan EGFR-AF COLOMBIAN >60 Normal >=60 [facility] Comment on above: Performed By: #### P T, PTT #### [facility] [address] [place] [address] Dr. Idania Roldan EGFR-NON AF COLOMBIAN >60 Normal >=60 [facility] Comment on above: Performed By: #### P T, PTT #### [facility] [address] [place] [address] Dr. Idanai Roldan Glucose [Mass/Vol] 88 mg/dL Normal 74-106 [facility] Comment on above: Performed By: #### P T, PTT #### [facility] [address] [place] [address] Dr. Idania Roldan Potassium [Moles/Vol] 3.8 mmol/L Normal 3.5-5.1 [facility] Comment on above: Performed By: #### P T, PTT #### [facility] [address] [place] [address] Dr. Idania Roldan Sodium [Moles/Vol] 140 mmol/L Normal 136-145 [facility] Comment on above: Performed By: #### P T, PTT #### [facility] [address] [place] [address] Dr. Idania Roldan Urea nitrogen [Mass/Vol] 13.0 mg/dL Normal 7.0-18.0 [facility] Comment on above: Performed By: #### P T, PTT #### [facility] [address] [place] [address] Dr. Idania Roldan Urea nitrogen/Creatinine [Mass ratio] 18.3 mg/mg Normal [facility] Comment on above: Performed By: #### P T, PTT #### [facility] [address] [place] [address] Dr. Idania Roldan URINE MICROSCOPIC ONLYon BACTERIA NONE SEEN Normal NONE SEEN [facility] Comment on above: Performed By: #### P T, PTT #### [facility] [address] [place] [address] Dr. Idania Roldan Bacteria identified Cx Nom (U) NOT INDICATED Normal [facility] Comment on above: Performed By: #### P T, PTT #### [facility] [address] [place] [address] Dr. Idania Roldan CAST NONE SEEN Normal NONE SEEN [facility] Comment on above: Performed By: #### P T, PTT #### [facility] [address] [place] [address] Dr. Idania Roldan Crystals LM Nom (Urine sed) NONE SEEN Normal NONE SEEN [facility] Comment on above: Performed By: #### P T, PTT #### [facility] [address] [place] [address] Dr. Idania Roldan Epithelial cells LM Ql (Urine sed) FEW Abnormal NONE SEEN /RARE [facility] Comment on above: Performed By: #### P T, PTT #### [facility] [address] [place] [address] Dr. Idania Roldan MUCOUS NONE SEEN Normal NONE SEEN [facility] Comment on above: Performed By: #### P T, PTT #### [facility] [address] [address] [address] Idania Roldan RBC 50-75 Abnormal 0-2 [facility] Comment on above: Performed By: #### P T, PTT #### [facility] [id number] Idania Roldan WBC 0-2 Abnormal NONE SEEN [facility] Comment on above: Performed By: #### P T, PTT #### [facility] [id number] Idania Roldan XR ABD FLAT UP_PA [...] RUSSELL DUFF Date: 2022-04-29 13:37 Normal [facility] US KIDNEYS BLADDERon 022 US KIDNEYS [...] by: RUSSELL DUFF Date: 2022-04-16 18:24 Normal [facility] CT LOWER EXTREMITY WO CONTRA ST LEFTon 04-07-2022 CT LOWER EXTREMITY WO CONTRAST LEFT [facility] Department of Radiology [address] [place] [address] Patient Name: ELVI MOORE : 1980 Sex: F Age: Race: White Pt. Location: 84 Patient Status: D Ordered Date: 03/24/2022 9:30:00 [...] arthroplasty. Electronically signed: Elvis Perez. Transcribed by: [email or web address], User Resident: Electronically Signed by: ELVIS PEREZ @ 04/12/2022 09:46 AM Normal [facility] Comment on above: Order Comment: , lef t knee C REACTIVE PROTEINon 022 CRP [Mass/Vol] 2.2 mg/L Normal 0.0-7.0 [facility] Comment on above: Performed By: #### 3 1791 #### [address] SEDIMENTATION RATEon 022 SED RATE 30 mm/hr High 0-20 [facility] Comment on above: Performed By: #### 5 6506 #### [facility] [address] [place] [address], [facility] KNEE LEFT 1 OR 2 [facility] 02-12 KNEE LEFT 1 OR 2 [facility] Department of Radiology [address] [place] [id number] Patient Name: ELVI MOORE : 1980 [...] report. Electronically signed: Sathya Christianson. Transcribed by: [email or web address], User Resident: Electronically Signed by: SATHYA CHRISTIANSON @ 02/13/2022 10:48 PM Normal [facility] Comment on above: Order Comment: LT KN EE REANNA Operative Reporton Operative Report MR#: [id number] [facility] Pt. Name: Elvi Moore Room #: 0C Discharge Date: Birthdate: 1980 OPERATIVE REPORT DATE OF SURGERY: 02/12/2022 SURGEON: Kevin Lane M.D. RECOIL SPRING WINDER: None. PREOPERATIVE DIAGNOSIS: Left total knee arthroplasty [...] Lane M.D. Date Trans: 02/12/2022 09:35 A/taylor [id number] cc: Arleth Acharya M.D. [address], [facility] [address] Normal [facility] POC GLUCOSE LABon 02-12-2022 Glucose [Mass/Vol] 96 mg/dL Normal 70-100 [facility] Comment on above: Performed By: #### 8 5499 ####[facility] [place] [address], [facility] C REACTIVE PROTEINon 022 CRP [Mass/Vol] 1.7 mg/L Normal 0.0-7.0 [facility] Comment on above: Performed By: #### 6 1405 #### [facility] [address] [facility] [place] [address], [facility] SEDIMENTATION RATEon 022 SED RATE 18 mm/hr Normal 0-20 [facility] Comment on above: Performed By: #### 6 1405 #### [address] [place] [address], [facility] KNEE LEFT 3 VWSon 12-26-2021 KNEE LEFT 3 [facility] Department of Radiology [address] [place] [id number] Patient Name: ELVI MOORE : 1980 Sex: F Age: Race: White Pt. Location: Patient Status: Ordered Date: 12/26/2021 1:45:00 PM Completed Date: 12/26/2021 01:50 PM Requesting Provider: JORDEN BRODY Attending Provider: Report Copy To: Signs & Symptoms: Z47.1 Aftercare following joint replacement surgery I10 History: [place] Comments: , , , Ordering Provider - JORDEN BRODY CNP , Exam: KNEE LEFT 3 S KNEE LEFT 3 S 12/26/2021 1:50 PM [...] report. Electronically signed: Yvette Desai. Transcribed by: [email or web address], User Resident: CHRISTELLE ABDI Electronically Signed by: YVETTE DESAI @ 12/26/2021 04:27 PM I personally read this/these film(s) with this resident Normal [facility] Comment on above: Order Comment: , , = ========= , Ordering Provider - JORDEN BRODY PRIVATE DUTY RN , KNEE LEFT 3 [facility] 12-09-2021 KNEE LEFT 3 [facility] Department of Radiology [address] [place] [id number] Patient Name: ELVI MOORE : 1980 Sex: F Age: Race: White Pt. Location: Patient Status: D Ordered Date: 12/09/2021 9:30:00 AM Completed Date: 12/09/2021 09:37 AM Requesting Provider: JORDEN BRODY Attending Provider: JORDEN BRODY Report Copy To: Signs & Symptoms: Z47.1 Aftercare following joint replacement surgery I10 History: [place] Comments: Exam: KNEE LEFT 3 [facility] KNEE LEFT 3 VWS HISTORY: Knee replacement, follow-up. COMPARISON: 10/30/2021. IMPRESSION: 1. Redemonstrated knee arthroplasty, no hardware complication or acute abnormality. Small to moderate joint effusion. 2. Improving soft tissue changes. Electronically signed: Ezio Roberts. Transcribed by: [email or web address], User Resident: Electronically Signed by: EZIO ROBERTS @ 12/10/2021 08:39 AM Normal [facility] Operative Reporton 2 Operative Report MR#: [id number] [facility] Pt. Name: Elvi Moore Room #: 0C Discharge Date: Birthdate: 1980 OPERATIVE REPORT DATE OF SURGERY: 10/30/2021 SURGEON: Kevin Lane M.D. RECOIL SPRING WINDER: 1. MD [place]. 2. LAVON uQinones. ANESTHESIA: General anesthesia. ESTIMATED BLOOD LOSS: 100 [...] arthrotomy was closed itself with #2 interrupted uzxtqq-cm-cxdpt suture. The remainder of the incision was closed in a layered fashion. Sterile dressing was applied. At the conclusion of the case, all sponge and needle counts were correct. I was present for the critical portions of this case. Electronically Signed by: Kevin Lane M.D. 10/30/2021 07:[address] M.D. Date Dict: 10/30/2021/11:00 Christine/Kevin Lane M.D. Date Trans: 10/30/2021 12:34 P/mmo [id number] cc: Arleth Acharya M.D. [address] [place] [address] Nasir Uribe Kirstie, DO [address] [facility] [address] [place] [address] Normal [facility] POC GLUCOSE LABon 10-30-2021 Glucose [Mass/Vol] 88 mg/dL Normal 70-100 [facility] Comment on above: Performed By: #### 8 5499 ####[facility] [address] PORTABLE KNEE LEFT 2 VWSon 0 10-30-2021 PORTABLE KNEE LEFT 2 [facility] Department of Radiology [address] [place] [address] Patient Name: ELVI MOORE : [...] complication Electronically signed: Yvette Andrade. Transcribed by: [email or web address], User Resident: Electronically Signed by: YVETTE ANDRADE @ 10/30/2021 11:20 AM Normal [facility] Comment on above: Order Comment: Hardw are Evaluation, Postop PACU films for L knee s/p TKA. AP and lateral please *MRSA/MSSA DNA NASALon 10-07 *MRSA/MSSA DNA NASAL Clinical Report: (D) Specimen: NASAL SWAB Collected: 10/07/2021 10:51 Status: Final Last Updated: 10/07/2021 15:44 MSSA DNA (Final) Negative MRSA DNA (Final) Negative Normal [facility] Comment on above: Performed By: #### 3 1595 ####[facility] [place] [address], [facility] APTTon 10-07-2021 aPTT Coag (Bld) [Time] 32.2 s Normal 25.0-35.0 [facility] Comment on above: Result Comment: ALL [...] PURPOSE. Performed By: #### 3 1791 #### [facility] [address] [place] [address], [facility] BASIC METABOLIC PANELon 12-2 8-2021 Calcium [Mass/Vol] 9.2 mg/dL Normal 8.6-10.3 [facility] Comment on above: Performed By: #### 3 1791 #### [facility] [address] [place] [address], [place] Chloride [Moles/Vol] 106 mmol/L Normal 98-107 [facility] Comment on above: Performed By: #### 3 1791 #### [facility] [address] [place] [address], [place] CO2 [Moles/Vol] 28 mmol/L Normal 21-31 [facility] Comment on above: Performed By: #### 3 1791 #### [facility] [address] [place] [address], [place] Creatinine [Mass/Vol] 0.77 mg/dL Normal 0.60-1.20 [facility] Comment on above: Performed By: #### 3 1791 #### [facility] [address] [place] [address], [place] GFR/1.73 sq M.predicted among blacks MDRD (S/P/Bld) [Vol rate/Area] mL/min/{1.73_m2} Normal >60 [facility] Comment on above: Performed By: #### 3 1 #### [facility] [address] [place] [address], [place] GFR/1.73 sq M.predicted among non-blacks MDRD (S/P/Bld) [Vol rate/Area] mL/min/{1.73_m2} Normal >60 [facility] Comment on above: Performed By: #### 3 1791 #### [facility] [address] [place] [address], [place] Glucose [Mass/Vol] 84 mg/dL Normal 70-100 [facility] Comment on above: Performed By: #### 3 179 #### [facility] [address] [place] [address], [facility] Potassium [Moles/Vol] 4.4 mmol/L Normal 3.5-5.1 [facility] Comment on above: Performed By: #### 3 1791 #### [facility] 3000 [facility] [address], [facility] Sodium [Moles/Vol] 142 mmol/L Normal 136-145 [facility] Comment on above: Performed By: #### 3 1791 #### [facility] [address] Urea nitrogen [Mass/Vol] 12 mg/dL Normal 7-25 [facility] Comment on above: Performed By: #### 3 1791 #### [facility] [address] CBC W/DIFFon 10-07-2021 ABS IMM GRANS 0.0 10*3/uL Normal 0.0-0.2 [facility] Comment on above: Performed By: #### 6 1405 #### [facility] [address] [place] [address], [facility] ABS NEUTROPHILS 4.7 10*3/uL Normal 1.6-7.6 [facility] Comment on above: Performed By: #### 6 1405 #### [facility] [address] [place] [address], [facility] Basophils (Bld) [#/Vol] 0.0 10*3/uL Normal 0.0-0.2 [facility] Comment on above: Performed By: #### 6 1405 #### [facility] [address] [place] [address], [facility] Basophils/100 WBC (Bld) 0.3 % Normal 0.0-1.0 [facility] Comment on above: Performed By: #### 6 1405 #### [facility] [address] [place] [address], [place] Eosinophils (Bld) [#/Vol] 0.2 10*3/uL Normal 0.0-0.5 [facility] Comment on above: Performed By: #### 6 1405 #### [facility] [address] [place] [address], [facility] Eosinophils/100 WBC (Bld) 1.9 % Normal 0.0-6.0 [facility] Comment on above: Performed By: #### 6 1405 #### [facility] [address] Erythrocyte distribution width (RBC) [Ratio] 14.0 % Normal 11.5-15.0 [facility] Comment on above: Performed By: #### 6 1405 #### [facility] [address] Hematocrit (Bld) [Volume fraction] 37.1 % Normal 36.0-45.0 [facility] Comment on above: Performed By: #### 6 1405 #### [facility] [address] Hemoglobin (Bld) [Mass/Vol] 11.3 g/dL Low 12.0-15.0 [facility] Comment on above: Performed By: #### 6 1405 #### [facility] [address] [place] [address], [facility] IMMATURE GRANS 0.1 % Normal 0.0-1.0 [facility] Comment on above: Performed By: #### 6 1405 #### [facility] [address] [place] [address], [facility] Lymphocytes (Bld) [#/Vol] 2.5 10*3/uL Normal 1.2-4.0 [facility] Comment on above: Performed By: #### 6 1405 #### [facility] [address] [place] [address], [facility] Lymphocytes/100 WBC (Bld) 31.6 % Normal 20.0-45.0 [facility] Comment on above: Performed By: #### 6 1405 #### [facility] [address] [place] [address], [facility] MCH (RBC) [Entitic mass] 25.5 pg Low 27.0-33.0 [facility] Comment on above: Performed By: #### 6 1405 #### [facility] [address] [facility] [place] [address], [facility] MCHC (RBC) [Mass/Vol] 30.5 g/dL Low 32.0-35.0 [facility] Comment on above: Performed By: #### 6 1405 #### [facility] [address] [facility] [place] [address], [facility] MCV (RBC) [Entitic vol] 83.7 fL Normal 82.0-98.0 [facility] Comment on above: Performed By: #### 6 1405 #### [facility] [address] [facility] [place] [address], [facility] Monocytes (Bld) [#/Vol] 0.5 10*3/uL Normal 0.1-1.0 [facility] Comment on above: Performed By: #### 6 1405 #### [facility] [address] [facility] [place] [address], [facility] MONOS 6.0 % Normal 5.0-12.0 [facility] Comment on above: Performed By: #### 6 1405 #### [facility] [address] [facility] [place] [address], [facility] Neutrophils/100 WBC (Bld) 60.1 % Normal 40.0-72.0 [facility] Comment on above: Performed By: #### 6 1405 #### [facility] [address] [place] [address], [facility] Nucleated RBC/100 WBC (Bld) [Ratio] 0 % Normal 0-0 [facility] Comment on above: Performed By: #### 6 1405 #### [facility] [address] [place] [address], [facility] PLAT CNT 233 10*3/uL Normal 150-400 [facility] Comment on above: Performed By: #### 6 1405 #### [facility] [address] RBC (Bld) [#/Vol] 4.43 10*6/uL Normal 3.80-5.00 [facility] Comment on above: Performed By: #### 6 1405 #### [facility] [address] WBC (Bld) [#/Vol] 7.85 10*3/uL Normal 4.00-10.60 [facility] Comment on above: Performed By: #### 6 1405 #### [facility] [address] PROTHROMBIN TIMEon 1 INR Coag (PPP) [Relative time] 0.94 {INR} Normal 0.91-1.16 [facility] Comment on above: Result Comment: ACCC [...] 1995;108:[id number]. Performed By: #### 3 1791 #### [facility] [address] [place] [address], [facility] PT Coag (PPP) [Time] 12.6 s Normal 12.3-14.8 [facility] Comment on above: Result Comment: ALL RESULTS MUST BE INTERPRETED WITH RESPECT TO BLOOD DRAWING ARTIFACT OR DILUTION ERROR OF ANTICOAGULANT AT THE TIME OF SAMPLING. Performed By: #### 3 1791 #### [facility] [address] TYPE AND SCREENon 10-07-2021 ABO INTERPRETATION O Normal [facility] Comment on above: Performed By: #### 3 1791 #### [facility] [address] RH INTERPRETATION Positive Normal [facility] Comment on above: Performed By: #### 3 1791 #### [facility] 3000 [facility]. [address] *MRSA/MSSA DNA NASALon 08-12 *MRSA/MSSA DNA NASAL Clinical Report: (D) Specimen: NASAL SWAB Collected: 08/12/2021 10:14 Status: Final Last Updated: 08/12/2021 18:58 MSSA DNA (Final) Negative MRSA DNA (Final) Negative Normal [facility] Comment on above: Performed By: #### 6 1405 #### [facility] [address] [place] [address], [facility] CBC W/DIFFon 08-12-2021 ABS IMM GRANS 0.0 10*3/uL Normal 0.0-0.2 [facility] Comment on above: Performed By: #### 6 1405 #### [facility] [address] [place] [address], [facility] ABS NEUTROPHILS 3.7 10*3/uL Normal 1.6-7.6 [facility] Comment on above: Performed By: #### 6 1405 #### [facility] [address] [place] [address], [facility] Basophils (Bld) [#/Vol] 0.0 10*3/uL Normal 0.0-0.2 [facility] Comment on above: Performed By: #### 6 1405 #### [facility] [address] [place] [address], [facility] Basophils/100 WBC (Bld) 0.3 % Normal 0.0-1.0 [facility] Comment on above: Performed By: #### 6 1405 #### [facility] [address] [place] [address], [facility] Eosinophils (Bld) [#/Vol] 0.2 10*3/uL Normal 0.0-0.5 [facility] Comment on above: Performed By: #### 6 1405 #### [facility] [address] [place] [address], [facility] Eosinophils/100 WBC (Bld) 2.9 % Normal 0.0-6.0 [facility] Comment on above: Performed By: #### 6 1405 #### [facility] [address] [place] [address], [facility] Erythrocyte distribution width (RBC) [Ratio] 14.0 % Normal 11.5-15.0 [facility] Comment on above: Performed By: #### 6 1405 #### [facility] [address] [place] [address], [facility] Hematocrit (Bld) [Volume fraction] 37.0 % Normal 36.0-45.0 [facility] Comment on above: Performed By: #### 6 1405 #### [facility] [address] [place] [address], [facility] Hemoglobin (Bld) [Mass/Vol] 11.6 g/dL Low 12.0-15.0 [facility] Comment on above: Performed By: #### 6 1405 #### [facility] [address] [facility] [address], [facility] IMMATURE GRANS 0.3 % Normal 0.0-1.0 [facility] Comment on above: Performed By: #### 6 1405 #### [facility] [address] [facility] [address], [facility] Lymphocytes (Bld) [#/Vol] 2.1 10*3/uL Normal 1.2-4.0 [facility] Comment on above: Performed By: #### 6 1405 #### [facility] [address] [place] [address], [facility] Lymphocytes/100 WBC (Bld) 32.5 % Normal 20.0-45.0 [facility] Comment on above: Performed By: #### 6 1405 #### [facility] [address] [facility] [address], [facility] MCH (RBC) [Entitic mass] 26.8 pg Low 27.0-33.0 [facility] Comment on above: Performed By: #### 6 1405 #### [facility] [address] [facility] [place] [address], [facility] MCHC (RBC) [Mass/Vol] 31.4 g/dL Low 32.0-35.0 [facility] Comment on above: Performed By: #### 6 1405 #### [facility] [address] [place] [address], [facility] MCV (RBC) [Entitic vol] 85.5 fL Normal 82.0-98.0 [facility] Comment on above: Performed By: #### 6 1405 #### [facility] [address] [facility] [place] [address], [facility] Monocytes (Bld) [#/Vol] 0.5 10*3/uL Normal 0.1-1.0 [facility] Comment on above: Performed By: #### 6 1405 #### [facility] [address] [place] [address], [facility] MONOS 6.9 % Normal 5.0-12.0 [facility] Comment on above: Performed By: #### 6 1405 #### [facility] [address] [place] [address], [facility] Neutrophils/100 WBC (Bld) 57.1 % Normal 40.0-72.0 [facility] Comment on above: Performed By: #### 6 1405 #### [facility] [address] [place] [address], [facility] Nucleated RBC/100 WBC (Bld) [Ratio] 0 % Normal 0-0 [facility] Comment on above: Performed By: #### 6 1405 #### [facility] [address] [place] [address], [facility] PLAT CNT 223 10*3/uL Normal 150-400 [facility] Comment on above: Performed By: #### 6 1405 #### [facility] [address] [place] [address], [facility] RBC (Bld) [#/Vol] 4.33 10*6/uL Normal 3.80-5.00 [facility] Comment on above: Performed By: #### 6 1405 #### [facility] [address] [place] [address], [facility] WBC (Bld) [#/Vol] 6.55 10*3/uL Normal 4.00-10.60 [facility] Comment on above: Performed By: #### 6 1405 #### [facility] [address] HEMOGLOBIN A1Con 08-12-2021 Glucose [Moles/Vol] 103 mmol/L Normal [facility] Comment on above: Performed By: #### 3 1791 #### [address] [place], [place] [id number] [place] [address] HbA1c (Bld) [Mass fraction] 5.2 % Normal 4.0-6.0 [facility] Comment on above: Performed By: #### 3 1791 #### [facility] 3000 [place], [place] [id number] [place] [address] KNEE LEFT 3 [facility] 08-12-2021 KNEE LEFT 3 [facility] Department of Radiology [address] [place] [address] [id number] Patient Name: ELVI MOORE : 1980 Sex: F Age: Race: White Pt. Location: Patient Status: O Ordered Date: 08/12/2021 8:40:00 AM Completed Date: 08/12/2021 08:41 AM Requesting Provider: KEVIN LANE Attending Provider: KEVIN LANE Report Copy To: SELF, REFERRED Signs & Symptoms: M25.562 Pain in left knee I10 History: Comments: evaluate Exam: KNEE LEFT 3 [facility] KNEE LEFT 3 [facility] 08/12/2021 8:42 AM CLINICAL INDICATIONS: M25.562 Pain [...] report. Electronically signed: Jah Juarez. Transcribed by: [email or web address], User Resident: JODY KEITH Electronically Signed by: JAH JUAREZ @ 08/12/2021 03:46 PM I personally read this/these film(s) with this resident Normal [facility] Comment on above: Order Comment: evalu ate Otolaryngology Office/Clinic Noteon 2017 Otolaryngology Office/Clinic Note [...] _Zhane Tamez MD 12/30/17 16:02 EDT Normal [facility] Otolaryngology Office/Clinic Noteon 11-18-2017 Otolaryngology Office/Clinic Note Patient seen for dispense of bilateral swim plugs. Both plugs display good fit in the ears, and patient confirmed comfort of fit. Proper insertion/removal was practiced successfully. Plan: Return if issues arise regarding swim plugs. N/C, swim plugs paid at last appointment.Electronicall y signed by _Rima Muñoz 11/18/17 16:04 EST Normal [facility] Otolaryngology Office/Clinic Note Chief Complaint post-opHistory of [...] _Zhane Tamez MD 11/18/17 16:31 EST Normal [facility] Otolaryngology Office/Clinic Noteon 10-28-2017 Otolaryngology Office/Clinic Note Chief Complaint post-opHistory of [...] _Zhane Tamez MD 10/28/17 15:41 EST Normal [facility] Otolaryngology Office/Clinic Note Patient seen for bilateral earmold impressions for swim plugs. Earmold impressions made without incident and otoscopy prior to and following impressions was unremarkable. Patient chose purple, pink, and green swirl color for plugs. Plan: Return in 3 weeks for dispense, prior to follow-up appointment with Dr. Zhane Tamez. $70.Electronically signed by _Rima Muñoz 10/28/17 16:31 EST Normal [facility] Otolaryngology Office/Clinic Noteon 09-16-2017 Otolaryngology Office/Clinic Note [...] _Zhane Tamez MD 09/16/17 16:06 EST Normal [facility] Otolaryngology Consultationo n 04-20-2017 Otolaryngology Consultation Chief [...] _Zhane Tamez MD 04/20/17 16:51 EDT Normal [facility] Social History Date Type Detail Facility Start: 06-29-2022 End: 05-28-2023 Tobacco smoking status Ex-smoker (finding) [facility] Start: 1980 Sex Assigned At Female F [facility] Sex Assigned At Female [facility] Tobacco smoking status Never [facility] Vital Signs Date Time Vital Sign Value Performing Clinician Facility 03-07-2024 16:03-0400 Blood Pressure Location ELIZABETH AKBARRY [facility] 03-07-2024 16:03-0400 Body temperature 97.88 [degF] ELIZABETH STEPH [facility] 03-07-2024 16:03-0400 Diastolic blood pressure 80 mm[Hg] ELIZABETH STEPH [facility] 03-07-2024 16:03-0400 Heart rate 87 /min ELIZABETH STEPH [facility] 03-07-2024 16:03-0400 Respiratory rate 16 /min ELIZAEBTH STEPH [facility] 03-07-2024 16:03-0400 Systolic blood pressure 124 mm[Hg] ELIZABETH STEPH [facility] 01-06-2024 18:12-0400 Body height 167.64 cm MD Arleth Acharya Work Phone: [facility] 01-06-2024 18:12-0400 Body mass index (BMI) [Ratio] 25.6 kg/m2 MD Arleth Acharya Work Phone: [facility] 01-06-2024 18:12-0400 Body temperature 98.2 [degF] MD Arleth Acharya Work Phone: [facility] 01-06-2024 18:12-0400 Body weight 72 kg MD Arleth Acharya Work Phone: [facility] 01-06-2024 18:12-0400 Heart rate 93 /min MD Arleth Acharya Work Phone: [facility] 01-06-2024 18:12-0400 Respiratory rate 16 /min MD Arleth Acharya Work Phone: [facility] 01-06-2024 18:12-0400 SaO2% (BldA) [Mass fraction] 99 % MD Arleth Acharya Work Phone: [facility] 09-13-2023 12:04-0500 Blood Pressure Location Diana HAWKINS [facility] 09-13-2023 12:04-0500 Diastolic blood pressure 74 mm[Hg] Diana HAWKINS [facility] 09-13-2023 12:04-0500 Heart rate 64 /min Diana HAWKINS [facility] 09-13-2023 12:04-0500 Respiratory rate 16 /min Diana HAWKINS [facility] 09-13-2023 12:04-0500 Systolic blood pressure 128 mm[Hg] Diana HAWKINS [facility] 05-28-2023 11:12-0400 Body temperature 98 [degF] MD Arleth Acharya Work Phone: [facility] 05-28-2023 11:12-0400 Body weight 70.76 kg MD Arleth Acharya Work Phone: [facility] 05-28-2023 11:12-0400 Diastolic blood pressure 94 mm[Hg] MD Arleth Achraya Work Phone: [facility] 05-28-2023 11:12-0400 Heart rate 88 /min MD Arleth Acharya Work Phone: [facility] 05-28-2023 11:12-0400 Respiratory rate 16 /min MD Arleth Acharya Work Phone: [facility] 05-28-2023 11:12-0400 SaO2% (BldA) [Mass fraction] 98 % MD Arleth Acharya Work Phone: [facility] 05-28-2023 11:12-0400 Systolic blood pressure 131 mm[Hg] MD Arleth Acharya Work Phone: [facility] 05-28-2023 11:00-0400 Body height 167.64 cm MD Arleth Acharya Work Phone: [facility] 06-29-2022 09:25-0400 Blood Pressure Location Diana HAWKINS [facility] 06-29-2022 09:25-0400 Diastolic blood pressure 84 mm[Hg] Diana HAWKINS [facility] 06-29-2022 09:25-0400 Heart rate 84 /min Diana HAWKINS [facility] 06-29-2022 09:25-0400 Respiratory rate 16 /min Diana HAWKINS [facility] 06-29-2022 09:25-0400 Systolic blood pressure 115 mm[Hg] Diana HAWKINS [facility] Functional Status Date Assessment Result Facility 03-07-2024 Functional Status N/A [facility] 10-12-2023 Functional Status N/A [facility] 09-13-2023 Functional Status N/A [facility] 06-29-2022 Functional Status N/A [facility] Clinical Notes 06-16-2022 to 03-17-2024 Note Date & Type Note Facility 03-17-2024 Note Pain Medicine Medical [address] [address] Subjective Patient ID: Elvi Moore is a 43 y.o. female. Date:03/17/24 03/17/24 CC: Chief Complaint Patient presents with Knee Pain Left knee pain Pain Assessment Pain Assessment: 0-10 Pain Score: 5 - Moderate pain Pain Type: Chronic pain Pain Location: Knee Pain Orientation: Left Pain Descriptors: Aching, Burning, Sharp, Other (Comment) (swelling) Pain Frequency: Constant/continuous Pain Onset: Gradual Clinical Progression: Not changed Aggravating Factors: Standing, Walking Pain Interventions: Medication (See MAR), Repositioned, Elevated 43 year old female here follow up for chronic left leg pain. Her pain is a 5/10 and is worse with standing and it is in her left knee. She states she has been working with her programing to make adjustments to get more coverage on her knee cap, but still can not get coverage. She states every time they try to get coverage on her knee she gets overstimulated on other parts of her leg. She also has complaints about having swelling in her leg and foot at the end of her work day. She states she continues to take her norco 3 times a day but tend to wake up in the middle of the night due to her pain. She also continues to take her tizanidine which also helps. She denies adverse side effects. SUBJECTIVE: Elvi Moore is a 43 y.o. female who presents for follow up with a chief complaint of left knee pain. Since last visit patient reports pain is stable. Most recently patient underwent a xray of her stimulator to verify lead position which are still in place despite retention loop lost. 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 General: well developed, well nourished, no acute distress Head: normocephalic and atraumatic Eyes: anicteric sclera, normal eye movements Ears: normal hearing Chest/Lungs: quiet, easy, unlabored breathing. Heart: no clubbing, cyanosis, edema Skin: intact without suspicious lesions or rashes Neuropsych: alert and cooperative; normal mood/affect articulates well Gait: normal Assessment/Plan Diagnosis Plan 1. Complex regional pain syndrome type 1 of left lower extremity HYDROcodone-acetaminophen (Pendleton) 5-325 mg tablet gabapentin (Neurontin) 300 mg capsule 2. Other chronic postprocedural pain HYDROcodone-acetaminophen (Pendleton) 5-325 mg tablet gabapentin (Neurontin) 300 mg capsule Discussed chronic pain, medication use, treatment goals. Medication risk and benefits discussed. The Spine Diagram and Test results were used to explain the condition. PLAN: 1. Continue Pendleton 5/325mg TID PRN for severe pain 8 -gabapentin 300mg at night for one week can titrate up to 300mg BID or 600mg at night. 2. MAPS/OARRS pulled and reviewed. -ORT/COT 07/20/24 -ODS 3. Lumbar xrays reviewed with patient and [...] with our office and agrees to compliance m (more content not included)... [facility] 03-07-2024 Note - From: Maggie Vargas To: [facility] - Administrative; Sent: 03/07/2024 16:37:39 EDT Show up: 09/10/2024 16:37:00 EST Subject: Ambulatory Reminder Due Date/Time: 02/27/2025 16:37:00 EDT Reminder/Recall Please schedule patient for 1 yr f/u with [facility] with [facility] when schedule is built that far out. Due late February 2025 [facility] 03-07-2024 Hospital Discharge instructions Patient Education 03/07/2024 16:29:32 Dietary Guidelines to Help Prevent Kidney Stones Dietary Guidelines to Help Prevent Kidney Stones Kidney stones are deposits of minerals and salts that form inside your kidneys. Your risk of developing kidney stones may be greater depending on your diet, your lifestyle, the medicines you take, and whether you have certain medical conditions. Most people can lower their risks of developing kidney stones by following these dietary guidelines. Your dietitian may give you more specific instructions depending on your overall health and the type of kidney stones you tend to develop. What are tips for following this plan? Reading food labels Choose foods with no salt added or low-salt labels. Limit your salt (sodium) intake to less than 1,500 mg a day. Choose foods with calcium for each meal and snack. Try to eat about 300 mg of calcium at each meal. Foods that contain 200 500 mg of calcium a serving include: ?8 oz (237 mL) of milk, mrowjea-fmfktnpanbsn-zkkuz milk, and calcium-fortifiedfruit juice. Calcium-fortified means that calcium has been added to these drinks. ?8 oz (237 mL) of kefir, yogurt, and soy yogurt. ?4 oz (114 g) of tofu. ?1 oz (28 g) of cheese. ?1 cup (150 g) of dried figs. ?1 cup (91 g) of cooked broccoli. ?One 3 oz (85 g) can of sardines or mackerel. Most people need 1,000 1,500 mg of calcium a day. Talk to your dietitian about how much calcium is recommended for you. Shopping Buy plenty of fresh fruits and vegetables. Most people do not need to avoid fruits and vegetables, even if these foods contain nutrients that may contribute to kidney stones. When shopping for convenience foods, choose: ?Whole pieces of fruit. ?Pre-made salads with dressing on the side. ?Low-fat fruit and yogurt smoothies. Avoid buying frozen meals or prepared deli foods. These can be high in sodium. Look for foods with live cultures, such as yogurt and kefir. Choose high-fiber grains, such as whole-wheat breads, oat bran, and wheat cereals. Cooking Do not add salt to food when cooking. Place a salt shaker on the table and allow each person to add their own salt to taste. Use vegetable protein, such as beans, textured vegetable protein (TVP), or tofu, instead of meat in pasta, casseroles, and soups. Meal planning Eat less salt, if told by your dietitian. To do this: ?Avoid eating processed or pre-made food. ?Avoid eating fast food. Eat less [...] fish, or seafood. ?When you prepare animal proteins, cut pieces into small portion sizes. For most meat and fish, one serving is about the size of the palm of your hand. Eat at least five servings of fresh fruits and vegetables each day. To do this: ?Keep fruits and vegetables on hand for snacks. ?Eat one piece of fruit or a handful of berries with breakfast. ?Have a salad and fruit at lunch. ?Have two kinds of vegetables at dinner. You may be told to limit foods that are high in a substance called oxalate. These include: ?Spinach (cooked), rhubarb, beets, sweet potatoes, and Uruguayan chard. ?Peanuts. ?Potato chips, equatorial guinean fries, and baked potatoes with skin on. ?Nuts and nut products. ?Chocolate. If you regularly take a diuretic medicine, make sure to eat at least 1 or 2 servings of fruits or vegetables that are high in potassium each day. These include: ?Avocado. ?Banana. ?[place], prune, carrot, or tomato juice. ?Baked potato. ?Cabbage. ?Beans and split peas. Lifestyle Drink enough fluid to keep your urine pale yellow. This is the most important thing you can do. Spread your fluid intake throughout the day. If you drink alcohol: ?Limit how much you have to: ?0 1 drink a day for women who are not . ?0 2 drinks a day for men. ?Know how much alcohol is in your drink. In the [place] one drink equals one 12 oz bottle of beer (355 mL), one 5 oz glass of wine (148 mL), or one 1 oz glass of hard liquor (44 mL). Lose weight if told by your health care provider. Work with your dietitian to find an eating plan and weight loss strategies that work best for you. General information Talk to your health care provider and dietitian about taking daily supplements. Depending on your health and the cause of your kidney stones, you may be told: ?Do not take high-dose supplements of vitamin C (1,000 mg a day or more). ?To take a calcium supplement. ?To take a daily probiotic supplement. ?To take other supplements such as magnesium, fish oil, or vitamin B6. Take cbjq-dsd-jdgkelv and prescription medicines only as told by your health care provider. These include supplements. What foods should I limit? Limit your intake of the following foods, or eat them as told by your dietitian. Vegetables Spinach. Rhubarb. Beets. Canned vegetables. Pickles. Olives. Baked potatoes with skin. Grains Wheat bran. Baked goods. Salted crackers. Cereals high in sugar. Meats and other proteins Nuts. Nut butters. Large portions of meat, poultry, or fish. Salted, precooked, or cured meats, such as sausages, meat loaves, and hot dogs. Dairy Cheeses. Beverages Regular soft drinks. Regular vegetable juice. Seasonings and condiments Seasoning blends with salt. Salad dressings. Soy sauce. Ketchup. Barbecue sauce. Other foods Canned soups. Canned pasta sauce. Casseroles. Pizza. Lasagna. Frozen meals. Potato chips. Yoruba fries. The items listed above may not be a complete list of foods and beverages you should limit. Contact a dietitian for more information. What foods should I avoid? Talk to your dietitian about specific foods you should avoid based on the type of kidney stones you have and your overall health. Fruits Grapefruit. The item listed above may not be a complete list of foods and beverages you should avoid. Contact a dietitian for more information. Summary Kidney stones are deposits of minerals and salts that form inside your kidneys. You can lower your risk of kidney stones by making changes to your diet. The most important thing you can do is drink enough fluid. Drink enough fluid to keep your urine pale yellow. Talk to your dietitian about how much calcium you should have each day, and eat less salt and animal protein as told by your dietitian. This information is not intended to replace advice given to you by your health care provider. Make sure you discuss any questions you have with your health care provider. Document Revised: 01/07/2023 Document Reviewed: 01/07/2023 [employer] Patient Education 2022 [place]. Follow Up Care 01/26/2024 10:43:28 With:ELIZABETH VACA PA-C, URL Address: [address] [place] [address]. [place] [address] [phone] When: Unknown [facility] 12-24-2023 Note Pain Medicine [address] [address] Subjective Patient ID: Elvi Moore is a [...] Interventions: Medication (See MAR) Response to Interventions: Pendleton - effective, SCS effective 42 year old female here follow up for chronic left leg pain. Her pain is a 7/10 and is worse with standing and it is in her left knee. She states she has been working with [employer] to make adjustments to get more coverage [...] retention loop lost. 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 Other chronic postprocedural pain HYDROcodone-acetaminophen (Pendleton) 5-325 mg tablet gabapentin (Neurontin) 300 mg capsule Discussed chronic pain, medication use, treatment goals. Medication risk and benefits discussed. The Spine Diagram and Test results were used to explain the condition. PLAN: 1. Continue Pendleton 5/325mg TID PRN for severe pain 8-10 [...] to compliance monit (more content not included)... 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 She states she has been working with [employer] to make adjustments to get more coverage [...] retention loop lost. 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 Other chronic postprocedural pain HYDROcodone-acetaminophen (Pendleton) 5-325 mg tablet Discussed chronic pain, medication use, treatment goals. Medication risk and benefits discussed. The Spine Diagram and Test results were used to explain the condition. PLAN: 1. Increase Pendleton 5/325mg TID PRN for severe pain 8-10 [...] another provider. Medication (more content not included)... [facility] 10-12-2023 Note [id number] [facility] 10-12-2023 Hospital Discharge instructions Patient Education 10/12/2023 [...] With:Diana HAWKINS Address: [facility] [address] [place] [address]- Business (1) When:01/11/2024 10:36:33 Comments:With a stone metabolic workup [facility] 10-12-2023 Note Custom Cystoscopy with Stent Removal [...] you have a fever over 100 degrees. [facility] 09-13-2023 Note Chief Complaint Re Referral *Kidney [...] from Dr Acharya due to kidney stone. [facility] ER 08/11/23 KUB & CT 08/11/23 Dr Acharya prescribed Promethazine & Cipro 500mg BID [id number]. [facility] 09/08/23 CC: Lt Flank Pain BUN 14 Crea 0.66 eGFR >90 CT ap w/o - small stone Lt Kidney 4-5mm Pt had [facility] in January, July & August. They are [...] Acharya prescribed Promethazine and Cipro 500mg bid [id number]. Reports Dr. Acharya also started her on [...] ongoing for 1month (more content not included)... [facility] Comment on above: Result Comment: Elec [...] including vitamins, herbs, eye drops, creams, and ojem-urt-eoapnyk medicines. Any problems you or family members [...] provider tells you to take them. Taking daoh-bwd-kvpvolg medicines, vitamins, herbs, and supplements. Tests You [...] Follow these instructions at home: Medicines Take ylhw-dfr-avnalkh and prescription medicines only as told by [...] provider. Document Revised: 06/10/2022 Document Reviewed: 05/09/2021 [employer] Patient Education 2022 [place]. 09/13/2023 12:55:19 Hematuria, Adult Hematuria, Adult Hematuria [...] Follow these instructions at home: Medicines Take wrcz-isl-zyvabfo and prescription medicines only as told by [...] or the blood stops without treatment. Take qwiy-nfx-zcvcnst and prescription medicines only as told by your health care provider. Drink enough fluid to keep your urine pale yellow. This information is not intended to replace advice given to you by your health care provider. Make sure you discuss any questions you have with your health care provider. Document Revised: 05/28/2021 Document Reviewed: 05/28/2021 [employer] Patient Education 2022 [place]. Follow Up Care 08/20/2023 11:43:21 With:ROSS GENTILE, Diana Goss, URL Address: [facility] [address], [place] [address]- [phone] When: Unknown Comments:myra cysto [facility] 09-13-2023 Note Urology Cystoscopy Cystoscopy is a [...] including vitamins, herbs, eye drops, creams, and sotc-gbz-mcngmxm medicines. ? Any problems you or family [...] tells you to take them. ? Taking elsk-qco-vfnxids medicines, vitamins, herbs, and supplements. Tests You [...] these instructions at home: Medicines ? Take swmt-mtz-xwxexur and prescription medicines only as told by [...] the department th (more content not included)... [facility] 08-19-2023 [place] [address] Subjective Patient ID: Elvi Moore is a [...] retention loop lost. 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 Do not start before August 20, 2023. - HYDROcodone-acetaminophen (Pendleton) 5-325 mg tablet; Take 1 tablet by mouth if needed in the morning and at bedtime for severe pain (8-10 pain score). Do not start before September 19, 2023. Other chronic postprocedural pain - HYDROcodone-acetaminophen (Pendleton) 5-325 mg tablet; Take 1 tablet by mouth if needed in the morning and at bedtime for severe pain (8-10 pain score). Do not start before August 20, 2023. - HYDROcodone-acetaminophen (Pendleton) 5-325 mg tablet; Take 1 tablet by [...] to explain the condition. PLAN: 1. Refill Pendleton 5/325mg BID PRN. Okay to fill on fill date 2. Patient instructed to contact us should she receive or prior to filling any additional opioid medications. 3. MAPS/OARRS pulled and reviewed. 4. Lumbar xrays reviewed with patient and reassured of proper lead placement and no migration issues. Continue optimization of neurostimulation 5. 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 [facility] 07-20-2023 [place] [address] Subjective Patient ID: Elvi Moore is a [...] hold of the [employer] rep. Pain Medications: Pendleton 5-325 BID. Pain relief lasts around 6 [...] from the pro (more content not included)... [facility] 06-01-2023 Note Attestation signed by Arjun Miner MD at 06/03/2023 12:16 PM I saw and evaluated the patient, participating in the holloway portions of the service. I reviewed the resident???s note. I agree with the resident???s findings and plan. Arjun Miner MD Pain Medicine [address] [address] Subjective Patient ID: Elvi Moore is a [...] working well. PLAN: 1. DRG stimulator implanted ([employer]): rep at bed side, changing settings to further optimize pain control 2. Slowly titrated down on requirment of norco 3. Medication: continue current script of norco 5/325. 4. Continue lumbar and core strengthening 5. RTC 4 [facility] 01-04-2023 Hospital Discharge instructions Patient Education [...] include: ?Spinach. ?Rhubarb. ?Beets. ?Potato chips and equatorial guinean fries. ?Nuts. If you regularly take a diuretic medicine, make sure to eat at least 1 2 fruits or vegetables high in potassium each day. These include: ?Avocado. ?Banana. ?[place], prune, carrot, or tomato juice. ?Baked potato. [...] Casseroles. Pizza. Lasagna. Frozen meals. Potato chips. Yoruba fries. Summary You can reduce your risk [...] 01/22/2012 Document Revised: 01/17/2020 Document Reviewed: 09/07/2017 [employer] Patient Education 2019 [place]. Follow Up Care 10/29/2022 14:23:18 With:ROSS GENTILE, Diana Goss, URL Address: [facility] [address], [place] [address]- When: Unknown [facility] 06-29-2022 Evaluation + Plan note Diagnostic Tests [facility] ([facility]) 06/29/22 [facility] 06-29-2022 Hospital Discharge instructions Patient Education 06/29/2022 [...] Follow these instructions at home: Medicines Take dfkv-zaj-adoykro and prescription medicines only as told by [...] or the blood stops without treatment. Take sjdf-lww-rmnybdb and prescription medicines only as told by your health care provider. Drink enough fluid to keep your urine clear or pale yellow. This information is not intended to replace advice given to you by your health care provider. Make sure you discuss any questions you have with your health care provider. Document Released: 09/27/2006 Document Revised: 02/21/2020 Document Reviewed: 10/30/2017 [employer] Patient Education 2020 [employer] Follow Up Care 05/06/2022 15:50:29 With:ROSS GENTILE, Diana Goss, URL Address: [facility] [address] [place] [address]- [phone] When: Unknown [facility] [place] 06-16-2022 Note MR#: [id number] I [facility] Pt. Name: Elvi Moore Admitted: 06/01/2022 [...] home in good condition. Electronically Signed by: Kvein Lane M.D. 06/23/2022 07:42 A ____ Kevin Lane M.D. I have reviewed this discharge summary and confirmed the resident's documentation. Please note that there may be additional documentation from me. Date Dict: 06/16/2022/10:36 A/Alvin Cavazos MD Date Trans: 06/16/2022 02:27 P/taylor [id number] cc: Arleth Hoy, M.D. [address] [place] [address] [facility] Evaluation + Plan note Future Appointments Appointment Date:01/11/2023 01:45:00 PM Scheduled Provider:Diana HAWKINS MD Location:[facility] Appointment Type:URO Office Visit [facility] Evaluation + Plan note Future Appointments Appointment Date:02/07/2024 10:15:00 AM Scheduled Provider:Diana HAWKINS MD Location:[facility] Appointment Type:URO Office Visit [facility] Evaluation note No assessment inform ation available [facility] Work Phone: Evaluation note Diagnosis Onset Date Left ankle sprain noneactive [facility] Work Phone: Hospital course Narrative No data available for this section [facility] progress note No data available for this section [facility] Summary Purpose Family History No Family History [...] encounter Reason for Visit Left ankle sprain Chief Complaint left leg pain w inju ry [id number].XXXA Unknown Reason for Visit Left ankle sprain Additional Source Comments INFORMATION SOURCE (unrecogn ized section and content) DATE CREATED AUTHOR 03/31/2018 [facility] DATE CREATED AUTHOR AUTHOR'S ORGANIZ ATION 06/23/2022 [facility] DATE CREATED AUTHOR AUTHOR'S ORGANIZ ATION 01/28/2023 [facility] DATE CREATED AUTHOR AUTHOR'S ORGANIZ ATION 03/09/2024 [facility] DATE CREATED AUTHOR AUTHOR'S ORGANIZ ATION 03/09/2024 [facility] DATE CREATED AUTHOR AUTHOR'S ORGANIZ ATION 03/31/2024 [facility] DATE CREATED AUTHOR AUTHOR'S ORGANIZ ATION 05/04/2024 Alessia shetty DATE CREATED AUTHOR AUTHOR'S ORGANIZ ATION 05/12/2024 [facility] Care Team (unrecognized sect ion and content) Team Status: Active Member Role Status Dates Arleth Acharya MD Primary Care Provider Active Team Status: Inactive Member Role Status Dates Arleth Acharya MD Primary Care Provider Active Start: January 06, 2024 End: January 06, 2024 Rianna Antonio APRN Attending Provider Active Start: January 06, 2024 End: January 06, 2024 Team Status: Active Member Role Status Dates Arleth Acharya MD Primary Care Provider, Referring Pr catarinaadamaris Active Osiris Calderón APRN Attending Provider Actvazquez argueta Team Status: Inactive Member Role Status Dates Carissa Pettit MD Attending Provider Active Star t: March 22, 2024 End: March 22, 2024 Goals (unrecognized section and content) Goals may [...] BE BASED ON THE PRIMARY CLINICAL RECORDS. [employer] provides no warranty or guarantee of the accuracy or completeness of information in this document.
--- NOTE | 2024-05-17 22:40 | XR_ITS ---
The [place] [id number] Patient Name: KRISTINE MADDEN MRN: [id number] date: 1980 Sex: F Assigned Patient Location: ER Current Patient Location: Accession/Order Number: [id number] Exam Date: 05/17/2024 22:50 Report Date: 05/18/2024 00:50 At the request of: RUKHSANA MARKER Procedure: XR ankle LT min 3V XR ankle LT min 3V, 05/17/2024 9:50 PM CDT: History: fall, in shower. . Comparison: None. Technique: 3 views left ankle Findings/Impression: There is no acute fracture or malalignment. There is moderate soft tissue swelling over the medial malleolus. The mortise is preserved. The talar dome is intact. Electronically authenticated by: MAI DURAN Date: 05/18/2024 00:50
--- NOTE | 2024-05-17 22:40 | XR_ITS ---
The [address] [address] Patient Name: KRISTINE MADDEN MRN: [id number] date: 1980 Sex: F Assigned Patient Location: ER Current Patient Location: ER Accession/Order Number: [id number] Exam Date: 05/17/2024 22:50 Report Date: 05/18/2024 01:01 At the request of: RUKHSANA MARKER Procedure: XR tibia fibula LT 2V X-RAY LEFT TIBIA AND FIBULA 2 VIEWS HISTORY: Pain. COMPARISON: None. FINDINGS: There is soft tissue edema. There is a left knee prosthesis. There is no acute fracture. There are no destructive bone lesions. There is no evidence of radiopaque soft tissue densities. XR/XR tibia fibula LT 2V IMPRESSION: Soft tissue edema, no acute bony abnormality. Electronically authenticated by: PRADEEP GILLIAM Date: 05/18/2024 01:01
--- NOTE | 2024-05-17 22:42 | ED_ITS ---
HPI HPI - Extremity Injury (Lower) General Chief Complaint: Extremity Injury, Lower Stated Complaint: Lower Extremity Injury from fall in shower Time Seen by Provider: 05/17/24 22:24 Source: patient Mode of arrival: Wheelchair History of Present Illness HPI Narrative: This 43-year-old female presents for evaluation of left lateral lower leg and ankle pain. The patient states she had knee replacement surgery last May and her left knee is still weak. She was in the shower tonight and states that her leg became weak and she fell striking her left leg on the shower door. She denies striking her head. She denies any neck or back pain. She has a nerve stimulator due to chronic pain in the left knee. She has had several surgeries in the last several years on the left knee ultimately requiring a total knee replacement done at [facility]. She has pain in the left lateral lower leg and left ankle. She denies any foot pain she has no hip pain. She states her knee is always swollen and she is not having any new or worsening knee pain at this time. Related Data Home Medications ?Medication ?Instructions ?Recorded ?Confirmed cyanocobalamin (vitamin B-12) 1,000 mcg IM .monthly 08/11/23 03/22/24 1,000 mcg/mL injection solution hydrocodone 5 mg-acetaminophen 325 1 tab PO Q8H PRN pain 08/11/23 03/22/24 mg tablet tizanidine 4 mg tablet 8 mg PO BEDTIME 08/11/23 03/22/24 pantoprazole 40 mg tablet,delayed 40 mg PO BID 09/13/23 03/22/24 release calcium carbonate 1,200 mg PO DAILY 03/17/24 03/22/24 ferrous sulfate 325 mg (65 mg 325 mg PO DAILY 03/17/24 03/22/24 iron) tablet (FeroSul) gabapentin 300 mg capsule 300 mg PO Q12H 03/17/24 03/22/24 multivitamin 1 tab PO DAILY 03/17/24 03/22/24 amitriptyline 100 mg tablet 100 mg PO .QHS 03/22/24 03/22/24 Previous Rx's ?Medication ?Instructions ?Recorded levofloxacin 750 mg tablet 750 mg PO DAILY 10 days #10 tabs 03/24/24 Allergies Allergy/AdvReac Type Severity Reaction Status Date / Time ketorolac [From Toradol] Allergy Intermediate Rash Verified 03/22/24 10:19 meperidine [From Demerol] Allergy Intermediate Rash Verified 03/22/24 10:19 prochlorperazine Allergy Intermediate hallucinati Verified 03/22/24 10:19 [From Compazine] ons Opioid HPI Opioid Management Most Recent Pain and Opioid Data: Last Pain Scale 7 05/18/24 00:12 Last MAR Pain Assessment 05/18/24 00:02 Last ORT Total Score 7 03/22/24 17:39 Last ORT Risk Category Moderate Risk 03/22/24 17:39 Review of Systems ROS Status of ROS 10 or more systems reviewed and unremark able except as noted in history and below [facility] Medical History (Updated 05/17/24 @ 23:51 by Nohelia Glover MD) Nausea & vomiting ?R11.2 - Nausea with vomiting, unspecified (ICD-10) Right flank pain ?R10.9 - Unspecified abdominal pain (ICD-10) Nausea & vomiting ?R11.2 - Nausea with vomiting, unspecified (ICD-10) Mass of right parotid gland ?K11.8 - Other diseases of salivary glands (ICD-10) Migraines ?G43.909 - Migraine, unspecified, not intractable, without status migrainosus (ICD-10) Anxiety ?F41.9 - Anxiety disorder, unspecified (ICD-10) Depression ?F32.A - Depression, unspecified (ICD-10) Stomach ulcer ?K25.9 - Gastric ulcer, unspecified as acute or chronic, without hemorrhage or perforation (ICD-10) Pancreatitis ?K85.90 - Acute pancreatitis without necrosis or infection, unspecified (ICD- 10) Kidney stone ?N20.0 - Calculus of kidney (ICD-10) Surgical History (Updated 03/22/24 @ 10:21 by Gin Machado) History of fine needle aspiration with imaging guidance ?Z98.890 - Other specified postprocedural states (ICD-10) Hx laparoscopic cholecystectomy ?Z90.49 - Acquired absence of other specified parts of digestive tract (ICD- 10) History of lumpectomy of right breast ?Z98.890 - Other specified postprocedural states (ICD-10) History of placement of ear tubes ?Z96.22 - Myringotomy tube(s) status (ICD-10) S/P insertion of spinal cord stimulator ?Z96.89 - Presence of other specified functional implants (ICD-10) History of knee replacement procedure of left knee ?Z96.652 - Presence of left artificial knee joint (ICD-10) Gastric bypass status for obesity ?Z98.84 - Bariatric surgery status (ICD-10) H/O: hysterectomy ?Z90.710 - Acquired absence of both cervix and uterus (ICD-10) Hx of appendectomy ?Z90.49 - Acquired absence of other specified parts of digestive tract (ICD- 10) Family History (Updated 08/11/23 @ 10:31 by Josie Pantoja) Grandfather Family history of COPD (chronic obstructive pulmonary disease) Father Family history of cancer Family history of diabetes mellitus Family history of hypertension Family history of stroke Sister Family history of cancer Family history of diabetes mellitus Grandmother Family history of diabetes mellitus Family history of hypertension Social History Within the past year, how often did you have a drink containing alcohol: never Within the past year, how many standard drinks containing alcohol did you have on a typical day: 1 or 2 Within the past year, how often did you have six or more drinks on one occasion: never Total score: 0 Score interpretation: A score less than 3 is consistent with normal alcohol consumption. Smoking status: Former smoker Second hand tobacco smoke exposure: No Non-prescribed substance use: denies use Previous occupational history: [employer] Known occupational exposures/hazards: No Highest level of school completed/degree received: some college, no degree Are you now , , , , never or living with a partner: In a typical week, how many times do you talk on the telephone with family, friends, or neighbors: 3 or more times per week How often do you get together with friends or relatives: 3 or more times per week How often do you attend religious or faith services: 4 or more times per year Do you belong to any clubs or organizations such as religious groups unions, fraternal or athletic groups, or school groups: no Total score: 3 Score interpretation: A score of greater than or equal to 2 indicates the lowest level of social isolation. Little interest or pleasure in doing things: not at all Feeling down, depressed, or hopeless: not at all Feel stressed/tense/nervous/anxious/difficulty sleeping: not at all Do you think of yourself as: straight/heterosexual Gender Identity: female Exam Narrative Exam Narrative: Vital signs and Nursing Notes reviewed: Patient is afebrile with normal pulse, blood pressure is elevated at 168/113, she is not hypoxic with pulse ox of 97% on room air General: Awake, alert, oriented, nontoxic but somewhat uncomfortable and tearful female, no respiratory distress HEENT: Normocephalic atraumatic, mucous membranes are moist and pink, eyes are clear, normal conjunctiva, vision is grossly intact Neck: Supple, no meningeal signs, no anterior or posterior cervical lymphadenopathy Chest: Lungs are clear to auscultation with good air entry, there is no wheezing rhonchi or rales appreciated no accessory muscle use, patient is speaking in complete sentences-no chest wall tenderness to palpation CVS: Regular rate and rhythm S1-S2, no murmurs rubs or gallops, pulses are brisk and equal bilaterally ABD: Soft, nondistended, nontender, no rebound guarding or rigidity, bowel sounds are normal, no pulsatile masses appreciated Extremities: There is mild tenderness to the left lateral malleolus and left lateral lower leg, fibula area. Feet are warm and sensate. Achilles is intact. There is no tenderness to the foot. Pulses in the foot are normal. Capillary refill in the foot is normal. There is a healed incision in the medial aspect of the left knee. Skin: Normal in appearance without rash,pallor, petechiae or purpura Neuro: No focal deficits Constitutional Vital Signs, click to edit/add: Last Vital Signs Temp 98.4 F 05/17/24 22:15 Pulse 92 H 05/17/24 22:15 Resp 16 05/17/24 22:15 BP 168/113 H 05/17/24 22:15 Pulse Ox 97 05/17/24 22:15 O2 Del Method Room Air 05/17/24 22:15 Course Vital Signs Vital signs: Vital Signs Temperature 98.4 F 05/17/24 22:15 Pulse Rate 92 H 05/17/24 22:15 Respiratory Rate 16 05/17/24 22:15 Blood Pressure 168/113 H 05/17/24 22:15 Pulse Oximetry 97 05/17/24 22:15 Oxygen Delivery Method Room Air 05/17/24 22:15 Temperature 98.4 F 05/17/24 22:15 Pulse Rate 92 H 05/17/24 22:15 Respiratory Rate 16 05/17/24 22:15 Blood Pressure 168/113 H 05/17/24 22:15 Pulse Oximetry 97 05/17/24 22:15 Oxygen Delivery Method Room Air 05/17/24 22:15 MDM - Extremity Injury (Lower) MDM Narrative Medical decision making narrative: This 43-year-old female presents for evaluation of left lower lateral leg and ankle pain after she fell in the shower. She states she struck her leg and ankle on the shower door. She did not strike her head. There is no loss of consciousness. She denies any neck or back pain. She is recovering from a total knee replacement approximately 1 year ago and states that she still does not have full strength in her left leg. She has some mild tenderness and swelling of the lateral malleolus and distal lateral fibula. Her foot is warm and sensate. Pulses are normal. X-ray of the left ankle and left tib-fib were ordered and do not show any acute fracture dislocation or bony abnormality but do show some soft tissue swelling. The patient was placed in an Sina wrap and stirrup splint for comfort and compression and was medicated in emergency department with a dose of [place] and Zofran. The patient is in pain management with a provider in [place] and will not be discharged home on any additional narcotics. She also states that she has crutches at home and can use them as needed. Medical Records Medical records narrative: [place] [address] XRay Report Signed Patient: KRISTINE MADDEN MR#: [id number] : 1980 Acct:[id number] Age/Sex: 43 / F ADM Date: 05/17/24 Loc: ER Attending Dr: Ordering Physician: Nohelia Glover Date of Service: 05/17/24 Procedure(s): XR tibia fibula LT 2V Accession Number(s): [id number] cc: Yasir Ledesma M.D.; Nohelia Glover~ [facility] [place] [id number] Patient Name: KRISTINE MADDEN MRN: [id number] date: 1980 Sex: F Assigned Patient Location: ER Current Patient Location: ER Accession/Order Number: [id number] Exam Date: 05/17/2024 22:50 Report Date: 05/18/2024 01:01 At the request of: NOHELIA MARKER Procedure: XR tibia fibula LT 2V X-RAY LEFT TIBIA AND FIBULA 2 VIEWS HISTORY: Pain. COMPARISON: None. FINDINGS: There is soft tissue edema. There is a left knee prosthesis. There is no acute fracture. There are no destructive bone lesions. There is no evidence of radiopaque soft tissue densities. XR/XR tibia fibula LT 2V IMPRESSION: Soft tissue edema, no acute bony abnormality. Electronically authenticated by: PRADEEP GILLIAM Date: 05/18/2024 01:01 [place] [address] XRay Report Signed Patient: KRISTINE MADDEN MR#: [id number] : 1980 Acct:[id number] Age/Sex: 43 / F ADM Date: 05/17/24 Loc: ER Attending Dr: Ordering Physician: Nohelia Glover Date of Service: 05/17/24 Procedure(s): XR ankle LT min 3V Accession Number(s): [id number] cc: Yasir Ledesma M.D.; Nohelia Marker~ [facility] [place] [id number] Patient Name: KRISTINE MADDEN MRN: [facility]:[id number] date: 1980 Sex: F Assigned Patient Location: ER Current Patient Location: Accession/Order Number: [id number] Exam Date: 05/17/2024 22:50 Report Date: 05/18/2024 00:50 At the request of: NOHELIA MARKER Procedure: XR ankle LT min 3V XR ankle LT min 3V, 05/17/2024 9:50 PM CDT: History: fall, in shower. . Comparison: None. Technique: 3 views left ankle Findings/Impression: There is no acute fracture or malalignment. There is moderate soft tissue swelling over the medial malleolus. The mortise is preserved. The talar dome is intact. Electronically authenticated by: MAI DURAN Date: 05/18/2024 00:50 Discharge Plan Discharge Stand Alone Forms: Portal Instructions Chief Complaint: Extremity Injury, Lower Clinical Impression: Ankle sprain and strain Patient Disposition: Home, Self-Care Time of Disposition Decision: 23:51 Condition: Good Prescriptions / Home Meds: No Action cyanocobalamin (vitamin B-12) 1,000 mcg/mL solution 1,000 mcg IM .monthly tizanidine 4 mg tablet 8 mg PO BEDTIME hydrocodone-acetaminophen 5-325 mg tablet 1 tab PO Q8H PRN (Reason: pain) pantoprazole 40 mg tablet,delayed release (DR/EC) 40 mg PO BID amitriptyline 100 mg tablet 100 mg PO .QHS levofloxacin 750 mg tablet 750 mg PO DAILY 10 Days Qty: 10 0RF gabapentin 300 mg capsule 300 mg PO Q12H multivitamin Tablet 1 tab PO DAILY ferrous sulfate [FeroSul] 325 mg (65 mg iron) tablet 325 mg PO DAILY calcium carbonate 600 mg calcium (1,500 mg) tablet 1,200 mg PO DAILY Print Language: Romanian Instructions: Ankle Sprain (ED), Ankle Stirrup Splint (ED) Referrals: Yasir Ledesma MD [Primary Care Provider] - 1 week Discharge Date/Time: 05/18/24 00:19
[2024-05-18] MEDS: HYDROCODONE/ACET 5-325 MG TABLET 1 TAB PO (00:02)
[2024-05-18] MEDS: ONDANSETRON 4 MG RAPDIS TABLET SL (00:03)
== END 2024-05-18 00:19 | disposition home or self-care (01) ==
PROVIDERS: Emergency Provider Emergency Medicine; PCP Family Medicine
DX: S93.402A Sprain of unspecified ligament of left ankle, initial encounter (principal); S96.912A Strain of unspecified muscle and tendon at ankle and foot level, left foot, initial encounter; W18.2XXA Fall in (into) shower or empty bathtub, initial encounter; Z96.652 Presence of left artificial knee joint; Z87.891 Personal history of nicotine dependence
CPT/HCPCS: 73590; 73610; 99283; Q0162

== ENCOUNTER 2024-06-20 10:27 | Outpatient (RCR) | payer OTHER, SELFPAY ==
[2024-06-20 11:00] VITALS: BP 130/92; PULSE 88; TEMP 35.7; O2SAT 98
[2024-06-20] MEDS: 0.9 % SODIUM CHLORIDE 2,000 ML 1000 ML IV (11:09)
[2024-06-20 11:48] LABS: Basophils Percent Auto 0.1 % (0.2-2.0); Eosinophils Percent Auto 0.6 % (0.9-7.0); Hematocrit 41.1 % (36.0-48.0); Hemoglobin 12.9 g/dL (12.0-16.0); Immature Granulocytes Abs Auto 0.04 10^3/uL (0.00-0.03); Immature Granulocytes Pct Auto 0.6 % (0.0-0.5); Lymphocytes Absolute Auto 1.8 10^3/uL (1.2-3.8); Lymphocytes Percent Auto 24.9 % (20.5-60.0); Mean Corpuscular HGB Conc 31.4 g/dL (29.9-35.2); Mean Corpuscular Hemoglobin 27.7 pg (26.7-34.0); Mean Corpuscular Volume 88.2 fL (81.0-99.0); Mean Platelet Volume 9.1 fL (9.5-13.5); Monocytes Absolute Auto 0.5 10^3/uL (0.3-0.8); Monocytes Percent Auto 6.4 % (1.7-12.0); Neutrophils Absolute Auto 4.9 10^3/uL (1.4-6.5); Neutrophils Percent Auto 67.4 % (43.0-75.0); Platelet Count 274 10^3/uL (150-450); Red Blood Count 4.66 10^6/uL (4.20-5.40); Red Cell Distribution Width 13.3 % (11.0-15.0); White Blood Count 7.2 10^3/uL (4.0-11.0)
[2024-06-20 11:48] LABS: Bilirubin Urine NEGATIVE (NEGATIVE); Blood Urine LARGE (NEGATIVE); Clarity Urine CLOUDY (CLEAR); Glucose Urine UA NEGATIVE (NEGATIVE); Ketones Urine NEGATIVE (NEGATIVE); Leukocyte Esterase Urine SMALL (NEGATIVE); Nitrite Urine NEGATIVE (NEGATIVE); Protein Urine TRACE mg/dL (NEG/TRACE); Specific Gravity Urine >=1.030 (1.005-1.025)
[2024-06-20 11:51] LABS: Alanine Aminotransferase 34 U/L (14-59); Albumin Level 3.8 g/dL (3.4-5.0); Alkaline Phosphatase 100 U/L (46-116); Amylase 62 U/L (25-115); Aspartate Amino Transferase 20 U/L (15-37); BUN Creatinine Ratio 19.3; Bilirubin Total 0.4 mg/dL (0.2-1.0); Calcium 9.1 mg/dL (8.5-10.1); Chloride 102 mmol/L (98-107); Estimated GFR (African America >60 (>=60); Estimated GFR (Non-African Ame >60 (>=60); Globulin 3.7 g/dL; Glucose 136 mg/dL (74-106); Potassium 3.9 mmol/L (3.5-5.1); Sodium 141 mmol/L (136-145); Total Protein 7.5 g/dL (6.4-8.2)
[2024-06-20 12:01] LABS: Color Urine DK YELLOW (YELLOW)
[2024-06-20 12:21] LABS: Anion Gap 12.5; Carbon Dioxide 30.4 mmol/L (21.0-32.0)
[2024-06-20 12:24] LABS: Bacteria Urine MODERATE #/HPF (NONE SEEN); Calcium Oxalate Crystals Urine MODERATE; Cast Seen? NONE SEEN #/LPF (NONE SEEN); Crystals Seen? Seen #/HPF (None Seen); Mucus Urine SMALL (NONE SEEN); RBC Urine >100 #/HPF (0-2); Squamous Epithelial Cell Urine FEW #/LPF (NONE/RARE)
== END 2024-07-10 23:59 | disposition home or self-care (01) ==
LOC: INF 10:27
PROVIDERS: PCP Family Medicine; Visit Provider Family Medicine
DX: E86.0 Dehydration (principal)
CPT/HCPCS: 36415; 80053; 81001; 82150; 83690; 85025; 87086; 96360; 96361

== ENCOUNTER 2024-06-21 06:57 | Emergency (ER) | payer OTHER, SELFPAY ==
[2024-06-21 07:02] VITALS: BP 171/114; PULSE 100; TEMP 37.3; O2SAT 99; BMI 25.0
--- OUTSIDE RECORDS SUMMARY | 2024-06-21 07:09 | XMS_ITS | CCD ---
Author Organization [facility] [employer] Care Team Providers Care Brush Operator Name Role Phone TAMEZ, ZHANE W Unavailable Unavailable Hoy, Yasir Martinez Unavailable Unavailable TAMEZ, ZHANE W Unavailable Unavailable Hoy, Yasir Martinez Unavailable Unavailable TAMEZ, ZHANE W Unavailable Unavailable Hoy, Yasir Martinez Unavailable Unavailable TAMEZ, ZHANE W Unavailable Unavailable Hoy, Yasir Martinez Unavailable Unavailable TAMEZ, ZHANE W Unavailable Unavailable TamezZhane~ Unavailable Unavailabl e Hoy, Yasri Martinez Unavailable Unavailable TAMEZ, ZHANE W Unavailable Unavailable Hoy, Yasir Martinez Unavailable Unavailable Rima Sparrow Unavailable Unavailable Hoy, Yasir Martinez Unavailable Unavailable Rima Sparrow Unavailable Unavailable Hoy, Yasir Martinez Unavailable Unavailable TAMEZ, ZHANE W Unavailable Unavailable Hoy, Yasir Martinez Unavailable Unavailable Kevin Lane Referring Unavailable Kevin Lane Attending Unavailable Kevin Lane Admitting Unavailable HOY, YASIR Primary Care Unavailable Kevin Lane Referring Unavailable Kevin Lane Attending Unavailable Kevin Lane Admitting Unavailable HOY, YASIR Primary Care Unavailable Kevin Lane Attending Unavailable Kevin Lane Admitting Unavailable HOY, YASIR Primary Care Unavailable HOY, YASIR Referring Unavailable Kevin Lane Admitting Unavailable Kevin Lane Attending Unavailable HOY, YASIR Primary Care Unavailable HOY, YASIR Referring Unavailable HOY, YASIR Primary Care Unavailable STEABHINAVOFFARIADNE Admitting Unavailable ROBERT SAINIOTHY Attending Unavailable SELF, REFERRED Referring Unavailable Kevin Lane Attending Unavailable Kevin Lane Admitting Unavailable NASIR THACKER Referring Unavailable HOY, YASIR Primary Care Unavailable Kevin Lane Attending Unavailable Geanyi, Kevin Admitting Unavailable HOY, YASIR Primary Care Unavailable HOY, YASIR Referring Unavailable Madaying, Kevin Referring Unavailable Kevin Lane Attending Unavailable Madaying, Kevin Admitting Unavailable SELF, REFERRED Primary Care Unavailable Madaying, Kevin Referring Unavailable Kevin Lane Attending Unavailable Madaying, Kevin Admitting Unavailable SELF, REFERRED Primary Care Unavailable SELF, REFERRED Primary Care Unavailable FORSHEY, JORDEN D Admitting Unavailable FORSHEY, JORDEN D Attending Unavailable SELF, REFERRED Referring Unavailable SELF, REFERRED Primary Care Unavailable FORSHEY, JORDEN D Admitting Unavailable FORSHEY, JORDEN D Attending Unavailable SELF, REFERRED Referring Unavailable SELF, REFERRED Referring Unavailable GeocingKevin Attending Unavailable Gehling, Kevin Admitting Unavailable SELF, REFERRED Primary Care Unavailable Geocing, Kevin Admitting Unavailable GeocingKevin Attending Unavailable HOY, YASIR Primary Care Unavailable HOY, YASIR Referring Unavailable MadayingKevin Attending Unavailable Geocing, Kevin Admitting Unavailable SELF, REFERRED Primary Care Unavailable SELF, REFERRED Referring Unavailable SELF, REFERRED Primary Care Unavailable FORSHEY, JORDEN D Admitting Unavailable FORSHEY, JORDEN D Attending Unavailable SELF, REFERRED Referring Unavailable SELF, REFERRED Primary Care Unavailable Kevin Lane Attending Unavailable Madaying, Kevin Admitting Unavailable SELF, REFERRED Referring Unavailable Yasir Acharya Primary Care Physician ROSS ., DR ORTIZ Consulting Unavailable [facility] Primary Care Unavailable HAWKINS ., DR ORTIZ [...] Consulting Unavailable NAZIA VASQUEZ Consulting Unavailable LONI .ENEDINA Attending Unavailable LONI [...] NICK Primary Care Unavailable HAWKINS ., DR OTRIZ Admitting Unavailable HAWKINS ., DR ORTIZ Attending Unavailable JORDEN ECHOLS Consulting Unavailable SHARP, MARAH Consulting Unavailable MD Yasir Acharya Primary Care Provider [phone] MD Yasir Acharya Referring Provider DO Calderón Attending Provider MD Yasir Acharya Primary Care Provider [phone] DO Antonio Attending Provider [phone] YASIR ACHARYA M Primary Care Unavailable NETO CONNELL Attending Unav ailable KO, NETO VERDUZCO Attending Unav ailable KO, NETO VERDUZCO Referring Unav ailable HOY, YASIR M Primary Care Unavailable DIANA HAWKINS Referring Unavailable HOY, YASIR M Primary Care Unavailable HOY, YASIR M Referring Unavailable HOY, YASIR M Primary Care Unavailable HOY, YASIR M Primary Care Unavailable LATONYAFELICE MEDRANOIMA Attending Unavailable HOY, YASIR M Primary Care Unavailable IFRAH, CARISSA Attending Unavailable HOY, YASIR M Primary Care Unavailable ADRI FRANK Attending Unavailable IFRAH, CARISSA Attending Unavailable CARISSA RG Referring Unavailable HOY, YASIR M Primary Care Unavailable IFRAH, CARISSA Attending Unavailable CARISSA RG Referring Unavailable HOY, YASIR M Primary Care Unavailable JOHANNAASIA Referring Unavailable HOY, YASIR M Primary Care Unavailable JOHANNAASIA Referring Unavailable HOY, YASIR M Primary Care Unavailable LATONYAFELICE MEDRANOIMA Attending Unavailable LATONYA, BRYAN Referring Unavailable HOY, YASIR M Primary Care Unavailable Diana HAWKINS R Attending Unavailable HAWKINS, Diana R Attending Unavailable HAWKINSDiana R Attending Unavailable Hoy, Yasir Referring Unavailable ELIZABETH VACA Attending Unavailable HAWKINSDiana R Admitting Unavailable HAWKINSDiana R Attending Unavailable HAWKINSDiana R Referring Unavailable HAWKINSDiana R Attending Unavailable MD Carissa Pettit V Attending Provider Carissa Pettit V Attending Unavailable Carissa Pettit V Admitting Unavailable Rianna Antonio Attending Unavailable Rianna Antonio Admitting Unavailable Hoy, Yasir M Primary Care Unavailable Osiris Calderón Attending Unavail able DembosOsiris garnica Admitting Unavail able Hoy, Yasir M Referring Unavailable Hoy, Yasir M Primary Care Unavailable DAISY BROWN Referring Unavailable HOY, YASIR M Primary Care Unavailable KHRIS BUCHANAN Attending Unavailable CURLY MORALES Attending Unavailable CURLY MORALES Attending Unavailable RUKHSANA MILLER Attending Unavailable RUKHSANA MILLER Attending Unavailable RUKHSANA MILLER Attending Unavailable CURLY MORALES Referring Unavailable KHRIS BUCHANAN Referring Unavailable Allergies Allergy Classification Reported Allergen(s) Allergy Type Date of Onset Reaction(s) Facility Corticosteroids (1 source) Desonide; Translations: [DESONIDE] Drug Allergy 01-09-20 21 [facility] Rep[facility] NSAIDs (2 sources) Ketorolac; Translations: [ketorolac] Drug Allergy 04-09-20 17 Unknown (qualifier value) [facility] Opioid Agonists (2 sources) Meperidine; Translations: [meperidine] Drug Allergy 04-09-20 17 [facility] Prochlorperazine (2 sources) Prochlorperazi ne; Translations: [prochlorperaz ine] Drug Allergy 08-14-20 23 Hallucinations (finding) [facility] (8 sources) ketorolac; Translations: [Toradol] Drug Allergy 05-29-20 15 Unknown (qualifier value) [facility] Repository (6 sources) meperidine; Translations: [Demerol HCl] Drug Allergy [facility] Repository (2 sources) Meperidine Drug Allergy 08-01-20 13 [facility] Repository (1 source) Desonide Drug Allergy [facility] Repository (5 sources) Ketorolac; Translations: [ketorolac] Drug Allergy 11-22-19 22 Unknown Reaction [facility] (5 sources) Meperidine; Translations: [meperidine] Drug Allergy 08-01-20 13 Unknown Reaction [facility] (4 sources) Prochlorperazi ne; Translations: [prochlorperaz ine] Drug Allergy 02-12-20 23 Hallucinations (finding) [facility] (1 source) No Known Medication Allergies; Translations: [No Known Medication Allergies] Propensity to adverse reactions (disorder) [facility] Repository Medications Current Medications Medication Drug Class(es) Dates Sig (Normalized) Sig (Original) acetaminophen 325 mg / HYDROcodone bitartrate 5 mg oral tablet (6 sources) Opioid Agonist Start: 09-24-2023 [place] 325 mg-5 mg oral tablet 1 tab(s), Oral, q12hr for pain, 20 tab(s), Refill(s) 0, 1 to 2 tabs every 4 to 6 hours as needed for pain, Pain, [id number], 167, cm, 09/13/23 12:07:00 EST, Height/Length Dosing, 70.5, kg, 09/13/23 12:07:00 EST, Weight Dosing Start Date: 09/24/23 Status: Ordered Start: 05-27-2023 take 1 tablet by mary th twice daily Hydrocodone-Acetaminophen Active 1 TAB P O Twice daily May 27, 2023 12:00am Start: 07-27-2022 [place] 325 mg-5 mg oral tablet 1 tab(s), Oral, BID Pain 8-10, 20 tab(s), Refill(s) 0, [id number], 167, cm, 06/29/22 9:28:00 EDT, Height/Length Dosing, 69, kg, 06/29/22 9:28:00 EDT, Weight Dosing Start Date: 07/27/22 Status: Ordered Start: 06-29-2022 take 1 tablet by mary th every six hours [place] 325 mg-5 mg oral tablet tab(s), Or [...] q12hr, # 20 cap(s), Refills(s) 0, Pharmacy: [id number], 167, cm, 09/13/23 12:07:00 EST, Height/Length Dosing, [...] Onset: 12-09-2021 Chronic Other aftercare (1 source) nursing home (current) use of aspirin; Translations: [LONGTERM (CURRENT) USE OF ASPIRIN] Onset: 06-03-2022 Episodic Other aftercare (2 sources) 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; Translations: [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) DRUG THERAPY] Onset: 08-12-2021 Episodic [...] Morbid obesity 10-24-2014 Chronic Residual codes; unclassified (1 source) Acquired [...] Test Name Value Interpretation Reference Range Facility Office Visiton 06-01-2024 Follow-up visit [id number] Madyson Moore 1980 F Date Provider Department Center 06/01/2024 KHRIS BLANCAS MP ORTHO MPORTHO Family History Problem Relation Age of Onset Brain cancer Mother Breast cancer Sister Kidney cancer Maternal Grandmother Prostate cancer Paternal Grandfather Cancer Father Cancer Sister Family Status - Relation Status Age at Mother Sister Maternal Grandmother Paternal Grandfather Father Sister Level of Service:62090 [place] OFFICE/OUTPATIENT ESTABLISHED LOW MDM 20 MIN Reason for Visit and Comments: New Patient [632] - Patient had 2nd knee replacement about a year ago, since then patient has been having increased pain and swelling, patient does see pain management and has stimulator in back Normal [facility] Refillon 05-09-2024 Refill [id number] Madyson Moore 1980 F Date Provider Department Center 05/09/2024 RUKHSANA ESPINOZA PAIN [facility] Family History Problem Relation Age of Onset Brain cancer Mother Breast cancer Sister Kidney cancer Maternal Grandmother Prostate cancer Paternal Grandfather Cancer Father Cancer Sister Family Status - Relation Status Age at Mother Sister Maternal Grandmother Paternal Grandfather Father Sister Reason for Visit and Comments: Med Refill [[id number]] [facility] Refillon 04-07-2024 Refill [id number] Madyson Moore ma 1980 F Date Provider Department Center 04/07/2024 RUKHSANA ESPINOZA MP PAIN Medical [facility]avi Family History Problem Relation Age of Onset Brain cancer Mother Breast cancer Sister Kidney cancer Maternal Grandmother Prostate cancer Paternal Grandfather Cancer Father Cancer Sister Family Status - Relation Status Age at Mother Sister Maternal Grandmother Paternal Grandfather Father Sister Reason for Visit and Comments: Med Refill [[id number]] [facility] Nico 03-22-2024 L Specimen: [id number] Received: 03/23/24 Status: JOHNATHON Agustin Num: [id number] Spec Type: Cytology Subm Dr: Carissa Pettit MD Tissues: A FNA SLIDES NOPATH (RT PAROTID MASS) Procedures: HE/2, p63, Cyto Int and Re, p40, PAPSTN/9 Age/ Patient Sex Location Account Attending Physician Elvi Moore L 43/F [facility]ELL [id number] Carissa Pettit MD SPEC NUM: [id number] RECD: 03/23/24 STATUS: JOHNATHON AGUSTIN NUM: [id number] JHONATAN: 03/22/24- SUBM DR: Carissa Pettit MD ENTERED: 03/23/24-[address]: Leann Amaya MD SPEC TYPE: Cytology DEPT: RHODA NHJATINDER ENTERED BY: [id number] RECV BY: [id number] ORDERED: HE/2, p63, Cyto Int and Re, [...] deeper level of sections for IHC CPT: 43255, 56024 Addendum Signed (signature on file) Walker-Jj Roldan MD 03/29/242032 Pathological Diagnosis Right parotid [...] cellular cluster in the Specimen: [id number] Received: 03/23/24-1407 Status: JOHNATHON Agustin Num: [id number] Spec Type: Cytology Subm Dr: Carissa Pettit MD Tissues: A FNA SLIDES NOPATH (RT PAROTID MASS) Procedures: HE/2, p63, Cyto Int and Re, p40, PAPSTN/9 Patient: Elvi Moore [id number] (Continued) Specimen: [id number] Received: 03/23/24 (Continued) Pathological Diagnosis (Continued) Signed (signature on file) Luis F Roldan MD 03/29/24 1124 Specimen: [id number] Received: 03/23/24 Status: JOHNATHON Agustin Num: [id number] Spec Type: Cytology Subm Dr: Carissa Pettit MD Tissues: A FNA SLIDES NOPATH (RT PAROTID MASS) Procedures: HE/2, p63, Cyto Int and Re, p40, PAPSTN/9 Patient: Elvi Moore [id number] (Continued) Specimen: [id number] Received: 03/23/24 (Continued) Pathological Diagnosis (Continued) ThinPrep smear, and is not contributory -There is also only very rare tiny small stromal fragments of scant cellularity in the cell block section, and is also not contributory for additional assessment -Overall findings is compatible with [place] system Category 4A: Benign neoplasm, encompassing pleomorphic adenoma Gross Description Received is <1 ml very pale pink fixed in Cytolyt fluid for cytology said to have been obtained as right parotid mass. 1 ThinPrep smear and cell block preparations are prepared for microscopic examination. Also received are 8 spray fixed smeared slides to be stained pap for microscopic examination.(CC/ak) CPT Codes 77672 17957 Specimen: [id number] Received: 03/23/24 Status: JOHNATHON Agustin Num: [id number] Spec Type: Cytology Subm Dr: Carissa Pettit MD Tissues: A FNA SLIDES NOPATH (RT PAROTID MASS) Procedures: HE/2, p63, Cyto Int and Re, p40, PAPSTN/9 Patient: Elvi Moore [id number] (Continued) Signed (signature on file) Luis F Roldan MD 03/29/24 1124 [facility] Follow-Upon 03-17-2024 Follow-Up [id number] Madyson Moore 1980 F Date Provider Department Center 03/17/2024 Abby-RUKHSANA MILLER PAIN Medical [facility]avi Family History Problem Relation Age of Onset Brain cancer Mother Breast cancer Sister Kidney cancer Maternal Grandmother Prostate cancer Paternal Grandfather Cancer Father Cancer Sister Family Status - Relation Status Age at Mother Sister Maternal Grandmother Paternal Grandfather Father Sister Level of Service:07395 [place] OFFICE/OUTPATIENT ESTABLISHED LOW MDM 20 MIN Reason for Visit and Comments: Knee Pain [906486] - Left knee pain Normal [facility] Screenson 03-08-2024 Screens [id number] Normal [facility] CT ABDOMEN AND PELVIS WO CON [...] Schmidt MD on 03/06/2024 11:46 PM Normal [facility] Patient Educationon 03-07-20 24 Patient Education Nephrology [...] ? 8 oz (237 mL) of milk, hddcujr-tuirwddumtvp-noqu y milk, and calcium-fortifiedfruit juice. Calcium-fortified means [...] Spinach (cooked), rhubarb, beets, sweet potatoes, and Chadian chard. ? Peanuts. ? Potato chips, niuean fries, and baked potatoes with skin on. ? Nuts and nut products. ? Chocolate. ? If you regularly take a diuretic medicine, make sure to eat at least 1 or 2 servings of fruits or vegetables that are high in potassium each day. These include: ? Avocado. ? Banana. ? [place], prune, carrot, or tomato juice. ? Baked [...] fish oil, or vitamin B6. ? Take pmnj-fpg-zkkmzxx and prescription medicines only as told by your health care provider. These include supplements. What foods sh (more content not included)... Normal [facility] [id number] Normal [facility] Urology Office/Clinic Noteon 03-07-2024 Urology Office/Clinic [...] 10/12/23. Stone analysis: 60% CaOx Di, 35% Colbert. 5% Phos Hydoxyl. KUB 03/03/24 [facility] - [...] Contact Information STEPH AVITIA, ELIZABETH Yi, URL [address] [place] [address] [phone] Additional Instructions: 1 yr w/ KUB Patient [...] 100 mg= 1 tab(s), Oral multivitamin, Daily [place] 325 mg-5 mg oral tablet, 1 tab(s), [...] virus vaccine, inactivated 07/29/2022 Recorded SARS-CoV-2 (COVID-19) [id number] 07/29/2022 Recorded SARS-CoV-2 (COVID-19) mRNA BNT-162b2 vax 10/08/2021 Recorded SARS-CoV-2 (COVID-19) mRNA BNT-162b2 vax 01/30/2021 Recorded SARS-CoV-2 (COVID-19) mRNA BNT-162b2 vax 01/09/2021 Recorded influenza virus vaccine, inactivated 07/11/2020 R (more content not included)... Normal [facility] Comment on above: Result Comment: Elec tronically Signed By: ELIZABETH VACA PA-C\.br\Date and Time Signed: 03/07/24 16:31 EDT\.br\Electronically Co-Signed By: Kandice Hardy\.br\Date and Time Co-Signed: 03/07/24 16:30 EDT CBC AND AUTO DIFFon 03-06-20 ABSOLUTE BASOPHIL 0.0 X10E9/L Normal 0.0-0.2 [facility] Comment on above: Performed By: #### C BCA, CMP ####[facility] ([id number])[address] [place] [address] 25784 ABSOLUTE NEUTROPHIL 4.5 X10E9/L Normal 1.5-6.6 [facility] Comment on above: Performed By: #### C BCA, CMP ####[facility] ([id number])[address] [place] [address] 30223 Basophils/100 WBC (Bld) 0.3 % Normal [facility] Comment on above: Performed By: #### C BCA, CMP ####[facility] ([id number])[address] [place] [address] 53551 Eosinophils (Bld) [#/Vol] 0.0 10*3/uL Normal 0.0-0.4 [facility] Comment on above: Performed By: #### C BCA, CMP ####[facility] ([id number])[address] [place] [address] 35583 Eosinophils/100 WBC (Bld) 0.6 % Normal [facility] Comment on above: Performed By: #### C GALEN, CMP ####[facility] ([id number])[address] [place] [address] 36606 Erythrocyte distribution width (RBC) [Ratio] 14.6 % Normal 11.5-15.0 [facility] Comment on above: Performed By: #### C GALEN, CMP ####[facility] ([id number])[address] [place] [address] 47085 Hematocrit (Bld) [Volume fraction] 39.4 % Normal 35-47 [facility] Comment on above: Performed By: #### C BCA, CMP ####[facility] ([id number])[address] [place] [address] 52819 Hemoglobin (Bld) [Mass/Vol] 13.1 g/dL Normal 11.7-15.5 [facility] Comment on above: Performed By: #### C BCA, CMP ####[facility] ([id number])[address] [place] [address] 28736 Lymphocytes (Bld) [#/Vol] 2.0 10*3/uL Normal 1.0-3.5 [facility] Comment on above: Performed By: #### C BCA, CMP ####[facility] ([id number])[address] [place] [address] Lymphocytes/100 WBC (Bld) 28.1 % Normal [facility] Comment on above: Performed By: #### C BCA, CMP ####[facility] ([id number])[address] [place] [address] 05285 MCH (RBC) [Entitic mass] 28.2 pg Normal 27-34 [facility] Comment on above: Performed By: #### C GALEN, CMP ####[facility] ([id number])[address] [place] [address] 99577 MCHC (RBC) [Mass/Vol] 33.2 g/dL Normal 32-36 [facility] Comment on above: Performed By: #### C GALEN, CMP ####[facility] ([id number])[address] [place] [address] 44790 MCV (RBC) [Entitic vol] 85 fL Normal 80-100 [facility] Comment on above: Performed By: #### C GALEN, CMP ####[facility] ([id number])[address] [place] [address] 48843 Monocytes (Bld) [#/Vol] 0.6 10*3/uL Normal 0-0.9 [facility] Comment on above: Performed By: #### C BCA, CMP ####[facility] ([id number])[address] [place] [address] 81191 Monocytes/100 WBC (Bld) 8.3 % Normal [facility] Comment on above: Performed By: #### C BCA, CMP ####[facility] ([id number])[address] [place] [address] 48679 Neutrophils/100 WBC (Bld) 62.7 % Normal [facility] Comment on above: Performed By: #### C BCA, CMP ####[facility] ([id number])[address] [place] [address] Platelet mean volume (Bld) [Entitic vol] 8.3 fL Normal 7-12 [facility] Comment on above: Performed By: #### C GALEN, CMP ####[facility] ([id number])[address] [place] [address] 36863 Platelets (Bld) [#/Vol] 279 10*3/uL Normal 150-450 [facility] Comment on above: Performed By: #### C GALEN, CMP ####[facility] ([id number])[address] [place] [address] 51947 RBC COUNT 4.63 X10E12/L Normal 3.80-5.20 [facility] Comment on above: Performed By: #### C GALEN, CMP ####[facility] ([id number])[address] [place] [address] 70386 WBC (Bld) [#/Vol] 7.2 10*3/uL Normal 4.0-11.0 [facility] Comment on above: Performed By: #### C GALEN, CMP ####[facility] ([id number])[address] [place] [address] 46373 COMPREHENSIVE METABOLIC PANE [facility] 03-06-2024 Albumin [Mass/Vol] 4.4 g/dL Normal 3.2-5.3 [facility] Comment on above: Performed By: #### C GALEN, CMP ####[facility] ([id number])[address] [place] [address] 91051 ALP [Catalytic activity/Vol] 96 U/L Normal 39-130 [facility] Comment on above: Performed By: #### C GALEN, CMP ####[facility] ([id number])[address] [place] [address] 01054 ALT [Catalytic activity/Vol] 16 U/L Normal 0-31 [facility] Comment on above: Performed By: #### C BCA, CMP ####[facility] ([id number])[address] [place] [address], [place] [address] Anion gap [Moles/Vol] 6 mmol/L Normal 5-15 [facility] Comment on above: Performed By: #### C BCA, CMP ####[facility] ([id number])[address] [place] [address], [place] [address] AST [Catalytic activity/Vol] 22 U/L Normal 0-41 [facility] Comment on above: Performed By: #### C BCA, CMP ####[facility] ([id number])[address] [place] [address], [place] [address] Bilirubin [Mass/Vol] 0.4 mg/dL Normal 0.3-1.2 [facility] Comment on above: Performed By: #### C BCA, CMP ####[facility] ([id number])[address] [place] [address], [place] [address] Calcium [Mass/Vol] 8.7 mg/dL Normal 8.5-10.5 [facility] Comment on above: Performed By: #### C BCA, CMP ####[facility] ([id number])[address] [place] [address], [place] [address] Chloride [Moles/Vol] 107 mmol/L Normal 98-109 [facility] Comment on above: Performed By: #### C BCA, CMP ####[facility] ([id number])[address] [place] [address], [place] [address] CO2 [Moles/Vol] 26 mmol/L Normal 22-32 [facility] Comment on above: Performed By: #### C BCA, CMP ####[facility] ([id number])[address] [place] [address], [place] [address] Creatinine [Mass/Vol] 0.64 mg/dL Normal 0.40-1.00 [facility] Comment on above: Result Comment: METH OD TRACEABLE TO IDMS STANDARD Performed By: #### C BCA, CMP ####[facility] ([id number])[address] [place] [address] [place] [address] eGFR (CKD-EPI) NON-RACE DEPENDENT >90 Normal >59 [facility] Comment on above: Result Comment: Reported eGFR is based on the CKD-EPI 2020 equation that does not use a race coefficient. Performed By: #### C BCA, CMP ####[facility] ([id number])[address] [place] [address] [place] [address] Glucose [Mass/Vol] 88 mg/dL Normal 65-99 [facility] Comment on above: Performed By: #### C BCA, CMP ####[facility] ([id number])[address] [place] [address] 08832 Potassium [Moles/Vol] 3.6 mmol/L Normal 3.5-5.0 [facility] Comment on above: Performed By: #### C BCA, CMP ####[facility] ([id number])[address] [place] [address] 95053 Protein [Mass/Vol] 8.0 g/dL Normal 6.0-8.0 [facility] Comment on above: Performed By: #### C BCA, CMP ####[facility] ([id number])[address] [place] [address] [place] [address] Sodium [Moles/Vol] 139 mmol/L Normal 134-146 [facility] Comment on above: Performed By: #### C BCA, CMP ####[facility] ([id number])[address] [place] [address] [place] [address] Urea nitrogen [Mass/Vol] 14 mg/dL Normal 5-23 [facility] Comment on above: Performed By: #### C BCA, CMP ####[facility] ([id number])[address] [place] [address] 58734 URINE CULTUREon 03-06-2024 Bacteria identified Cx Nom (U) SPECIMEN NOTES URINE RECEIVED WITHOUT PRESERVATIVE CULTURE RESULTS 10-50,000 ORGANISMS/mL NORMAL UROGENITAL ALE Normal [facility] Comment on above: Performed By: #### 6 30-4 ####[facility] ([id number])[address] [facility] [address], [place] [address] URN MACROSCOPIC NURon 2023 BILIRUBIN JUNIOR Negative Normal NEG [facility] Comment on above: Performed By: #### N UM ####[facility] ([id number])[address] [place] [address] 86603 BLOOD/HGB JUNIOR Large Abnormal NEG [facility] Comment on above: Performed By: #### N UM ####[facility] ([id number])[address] [place] [address] [place] [address] GLUCOSE JUNIOR Negative Normal NEG [facility] Comment on above: Performed By: #### N UM ####[facility] ([id number])[address] [place] [address] 22910 KETONES JUNIOR Negative Normal NEG [facility] Comment on above: Performed By: #### N UM ####[facility] ([id number])[address] [place] [address] 44188 LEUKOCYTE ESTERASE JUNIOR Negative Normal NEG [facility] Comment on above: Performed By: #### N UM ####[facility] ([id number])[address] [place] [address] 03306 NITRITE JUNIOR Negative Normal NEG [facility] Comment on above: Performed By: #### N UM ####[facility] ([id number])[address] [place] [address] 65698 PH JUNIOR 7.0 Normal 5.0-8.5 [facility] Comment on above: Performed By: #### N UM ####[facility] ([id number])[address] [place] [address] 22661 PROTEIN JUNIOR 30 mg/dL Abnormal NEG [facility] Comment on above: Performed By: #### N UM ####[facility] ([id number])[address] [place] [address] 19727 SPECIFIC GRAVITY JUNIOR 1.025 Normal 1.003-1.035 [facility] Comment on above: Performed By: #### N UM ####[facility] ([id number])[address] [place] [address] 81209 UROBILINOGEN JUNIOR 1.0 eu/dL Normal <1.1 [facility] Comment on above: Performed By: #### N UM ####[facility] ([id number])[address] [place] [address] 54816 Lab Reportson 02-22-2024 Lab Reports [id number]#1.00TIFF Normal [facility] Lab Reportson 02-18-2024 Lab Reports [id number]#1.00TIFF Normal [facility] Lab Reportson 02-17-2024 Lab Reports [id number]#1.00TIFF Normal [facility] 24 HR PHOSPHORUS,URINEon URINE PHOSPHORUS 0.8 g/24h Normal 0.4-1.3 [facility] Comment on above: Performed By: #### U PO4 ####[facility] ([id number])[address] [facility], [address] [place] [address] 48[address] 24 HR UR MAGNESIUMon 024 URINE MAGNESIUM 116 mg/24h Normal 72-182 [facility] Comment on above: Performed By: #### U CA, UCR, UMAG, DARLEEN, UUA ####[facility] ([id number])[address] [address] [place] [address] 64198 24 HR URINE CALCIUMon 2023 URINE CALCIUM 134 mg/24h Normal 50-250 [facility] Comment on above: Performed By: #### U CA, UCR, UMAG, DARLEEN, UUA ####[facility] ([id number])[address] [address] [place] [address] 62594 24 HR URINE CREATININEon URINE CREATININE 0.88 g/24h Normal 0.80-1.80 [facility] Comment on above: Performed By: #### U CA, UCR, UMAG, DARLEEN, UUA ####[facility] ([id number])[address] [address] [place] [address] 75476 24 HR URINE SODIUMon 024 URINE SODIUM 189 mmol/24h Normal 40-220 [facility] Comment on above: Performed By: #### U CA, UCR, UMAG, DARLEEN, UUA ####[facility] ([id number])[address] [address] 24 HR URINE URIC ACIDon URINE URIC ACID 0.4 g/24h Normal 0.3-0.8 [facility] Comment on above: Performed By: #### U CA, UCR, UMAG, DARLEEN, UUA ####[facility] ([id number])[address] [address] BLOOD UREA NITROGENon 2023 Urea nitrogen [Mass/Vol] 9 mg/dL Normal 5-23 [facility] Comment on above: Performed By: #### C BCA, CMP #### [facility] ([id number]) [address] [place] [address], [place] [address] CALCIUMon 02-15-2024 Calcium [Mass/Vol] 9.0 mg/dL Normal 8.5-10.5 [facility] Comment on above: Performed By: #### C BCA, CMP #### [facility] ([id number]) [address] [place] [address] 38875 CARBON DIOXIDEon 02-15-2024 CO2 [Moles/Vol] 22 mmol/L Normal 22-32 [facility] Comment on above: Performed By: #### C BCA, CMP #### [facility] ([id number]) [address] [place] [address] 93660 CHLORIDEon 02-15-2024 Chloride [Moles/Vol] 111 mmol/L High 98-109 [facility] Comment on above: Performed By: #### C BCA, CMP #### [facility] ([id number]) [address] [place] [address] 91788 CITRIC ACID URINEon 02-15-20 24 CITRIC ACID,24H UR 550 mg/d Normal 320-1240 [facility] Comment on above: Performed By: #### 3 094-0, 62657-3, 2074-0, 2028-06, DI[employer]OND FINISHING SUPERVISOR, 2951- 2, 2777-1, 3084-1, 2731-8 ####[facility] ([id number])[address] [facility], [address] [place] [address] 89[address]#### CITACU ####[facility] ([id number])[address] [place] [address] 08982 CITRIC ACID,UR,VOL 611 mg/L Normal [facility] Comment on above: Performed By: #### 3 094-0, 58456-0, 2074-0, 2028-06, DI[employer]OND FINISHING SUPERVISOR, 2951- 2, 2777-1, 3084-1, 2731-8 ####[facility] ([id number])[address] [facility], [address] [place] [address]#### CITACU ####[facility] ([id number])[address] [place] [address] CITRIC/CREAT RATIO 593 mg/g Normal >=150 [facility] Comment on above: Result Comment: NOTE INTERPRETIVE INFORMATION: Citric Acid, Urine This test was developed and its performance characteristics determined by [facility]. It has not been cleared or approved by the US Food and Drug Administration. This test was performed in a CLIA certified laboratory and is intended for clinical purposes. Performed By: [facility] [address] [place] [address] Curriculum Facilitator: Luca Mosquera MD, PhD CLIA Number: [id number] Performed By: #### 3 094-0, 07321-7, , 2028-06, DIAMOND FINISHING SUPERVISOR, 2951-2, 2777-1, 3084-1, 2731-8 ####[facility] ([id number])[address], [address] [address]#### CITACU ####[facility] ([id number])[address] [place] [address] 55365 CREATININE,24H URINE 927 mg/d Normal 700-1600 [facility] Comment on above: Performed By: #### 3 094-0, 26425-6, , 2028-06, DIAMOND FINISHING SUPERVISOR, 2951- 2, 2777-1, 3084-1, 2731-8 ####[facility] ([id number])[address], [address] [place] [address] 94000#### CITACU ####[facility] ([id number])[address] [place] [address] 02126 CREATININE,UR,VOL 103 mg/dL Normal [facility] Comment on above: Performed By: #### 3 094-0, 63243-7, 0, 2028-06, DIAMOND FINISHING SUPERVISOR, 2951- 2, 2777-1, 3084-1, 2731-8 ####[facility] ([id number])[address] [facility], [address] [address]#### CITACU ####[facility] ([id number])[address] [place] [address] 80387 HOURS COLLECTED 24 Normal [facility] Comment on above: Performed By: #### 3 094-0, 74389-6, 2074-0, 2028-06, DIAMOND FINISHING SUPERVISOR, 2951- 2, 2777-1, 3084-1, 2731-8 ####[facility] ([id number])[address] [facility], [address] [address]#### CITACU ####[facility] ([id number])[address] [place] [address] 64851 TOT VOLUME-24H URINE 900 Normal [facility] Comment on above: Performed By: #### 3 094-0, 65264-1, 2074-0, 2028-06, DIAMOND FINISHING SUPERVISOR, 2951- 2, 2777-1, 3084-1, 2731-8 ####[facility] ([id number])[address] [place] [address]#### CITACU ####[facility] ([id number])[address] [place] [address] 48924 CREATININEon 02-15-2024 Creatinine [Mass/Vol] 0.70 mg/dL Normal 0.40-1.00 [facility] Comment on above: Result Comment: METH OD TRACEABLE TO IDMS STANDARD Performed By: #### C BCA, CMP #### [facility] ([id number]) [address] [place] [address] 67912 eGFR (CKD-EPI) NON-RACE DEPENDENT >90 Normal >59 [facility] Comment on above: Result Comment: Reported eGFR is based on the CKD-EPI 2020 equation that does not use a race coefficient. Performed By: #### C BCA, CMP #### [facility] ([id number]) [address] [place] [address] 12569 OXALATE, TOTAL URINEon 02-14 CREATININE,24H URINE 945 mg/d Normal 700-1600 [facility] Comment on above: Result Comment: NOTE Performed By: [facility] [address] [place] [address] Curriculum Facilitator: Luca Mosquera MD, PhD CLIA Number: [id number] Performed By: #### O XALTU ####[facility] ([id number])[address] [place] [address] 33100 CREATININE,UR,VOL 105 mg/dL Normal [facility] Comment on above: Performed By: #### O XALTU ####[facility] ([id number])[address] [place] [address] 60611 HOURS COLLECTED 24 Normal [facility] Comment on above: Performed By: #### O XALTU ####[facility] ([id number])[address] [place] [address] 43002 OXALATE, PER VOLUME 32 mg/L Normal [facility] Comment on above: Performed By: #### O XALTU ####[facility] ([id number])[address] [place] [address] 01721 OXALATE,URINE/24H 29 mg/d Normal 13-40 [facility] Comment on above: Result Comment: NOTE REFERENCE INTERVAL: Oxalate, Urine - per 24h Access complete set of age- and/or gender-specific reference intervals for this test in the [employer] [facility] Test Directory ([employer]). This test was developed and its performance characteristics determined by [facility]. It has not been cleared or approved by the US Food and Drug Administration. This test was performed in a CLIA certified laboratory and is intended for clinical purposes. Performed By: #### O XALTU ####[facility] ([id number])[address] [place] [address] 04792 TOT VOLUME-24H URINE 900 Normal [facility] Comment on above: Performed By: #### O XALTU ####[facility] ([id number])[address] [place] [address] 12287 PHOSPHORUSon 02-15-2024 Phosphate [Mass/Vol] 3.7 mg/dL Normal 2.4-4.9 [facility] Comment on above: Performed By: #### C BCA, CMP #### [facility] ([id number]) [address] [place] [address] 45062 Parathyrin.intact [Mass/Vol] on 02-15-2024 PTH INTACT 65 pg/mL Normal 12-88 [facility] Comment on above: Performed By: #### C BCA, CMP #### [facility] ([id number]) [address] [place] [address] 34532 SODIUMon 02-15-2024 Sodium [Moles/Vol] 141 mmol/L Normal 134-146 [facility] Comment on above: Performed By: #### C BCA, CMP #### [facility] ([id number]) [address] [place] [address] 13972 URIC ACIDon 02-15-2024 Urate [Mass/Vol] 3.6 mg/dL Normal 2.6-7.2 [facility] Comment on above: Performed By: #### C BCA, CMP #### [facility] ([id number]) [address] [place] [address] 59281 URINE VOLUME AND TIMEon -0 TIME 24 h Normal [facility] Comment on above: Performed By: #### C BCA, CMP #### [facility] ([id number]) [address] [place] [address] 36624 TOTAL VOLUME 900 mL Normal [facility] Comment on above: Performed By: #### C BCA, CMP #### [facility] ([id number]) [address] [place] [address] [place] [address] TIME 24 h Normal [facility] Comment on above: Performed By: #### U PO4 ####[facility] ([id number])[address], [address], [place] [address] Performed By: #### O XALTU ####[facility] ([id number])[address] [place] [address] Performed By: #### U CA, UCR, UMAG, DARLEEN, UUA ####[facility] ([id number])[address], [address], [place] [address] TOTAL VOLUME 900 mL Normal [facility] Comment on above: Performed By: #### U PO4 ####[facility] ([id number])[address], [address] [place] [address] 7[address] Performed By: #### O XALTU ####[facility] ([id number])[address] [place] [address] Performed By: #### U CA, UCR, UMAG, DARLEEN, UUA ####[facility] ([id number])[address], [address] [place] [address] 04883 Orders Only02-04-2024 Orders Only [id number] Madyson Moore ma 1980 F Date Provider Department Center 02/04/2024 RUKHSANA ESPINOZA MP PAIN [facility] Family History Problem Relation Age of Onset Brain cancer Mother Breast cancer Sister Kidney cancer Maternal Grandmother Prostate cancer Paternal Grandfather Cancer Father Cancer Sister Family Status - Relation Status Age at Mother Sister Maternal Grandmother Paternal Grandfather Father Sister Normal [facility] Orders Onlyon 01-19-2024 Orders Only [id number] Teresa,Tabat ma 1980 F Date Provider Department Center 01/19/2024 RUKHSANA ESPINOZA MP PAIN [facility] Family History Problem Relation Age of Onset Brain cancer Mother Breast cancer Sister Kidney cancer Maternal Grandmother Prostate cancer Paternal Grandfather Cancer Father Cancer Sister Family Status - Relation Status Age at Mother Sister Maternal Grandmother Paternal Grandfather Father Sister Normal [facility] 36on 01-06-2024 36 I called patient and left a voicemail and advice to be seen in ED. Normal [facility] XR ankle LT min 3V*on 2023 XR ankle LT min 3V* [facility] Main [place] [address] [place] [address] XRay Report Signed Patient: Elvi Moore MR#: [id number] [id number] : 1980 Acct:[id number] Age/Sex: 43 / F ADM Date: 01/06/24 [facility]: Type: [facility] Attending Dr: Rianna Antonio APRN Copies to: Rainna Antonio APRN Ordering Provider: Rianna Antonio APRN [...] Solange Brown M.D.01/06/2024 6:47 PM Dictation Location: [place] [address] Transcribed By: [facility] 01/06/241846 Dictated By: Solange Brown MD 01/06/241845 Signed By: 01/06/241846 [facility] Follow-Upon 12-24-2023 Follow-Up [id number] Madyson Moore 1980 F Date Provider Department Center 12/24/2023 RUKHSANA ESPINOZA PAIN [facility] Family History Problem Relation Age of Onset Brain cancer Mother Breast cancer Sister Kidney cancer Maternal Grandmother Prostate cancer Paternal Grandfather Cancer Father Cancer Sister Family Status - Relation Status Age at Mother Sister Maternal Grandmother Paternal Grandfather Father Sister Level of Service:58228 [place] OFFICE/OUTPATIENT ESTABLISHED LOW MDM 20 MIN Reason for Visit and Comments: Follow-up [515092] - Chief complaint : L knee Normal [facility] CBC AND AUTO DIFFon 12-10-19 24 ABSOLUTE BASOPHIL 0.0 X10E9/L Normal 0.0-0.2 [facility] Comment on above: Performed By: #### C GALEN, CMP #### [facility] ([id number]) [address] [place] [address] 77046 ABSOLUTE NEUTROPHIL 6.4 X10E9/L Normal 1.5-6.6 [facility] Comment on above: Performed By: #### C GALEN, CMP #### [facility] ([id number]) [address] [place] [address] 98242 Basophils/100 WBC (Bld) 0.3 % Normal [facility] Comment on above: Performed By: #### C GALEN, CMP #### [facility] ([id number]) [address] [place] [address] 94067 Eosinophils (Bld) [#/Vol] 0.0 10*3/uL Normal 0.0-0.4 [facility] Comment on above: Performed By: #### C GALEN, CMP #### [facility] ([id number]) [address] [place] [address] 89848 Eosinophils/100 WBC (Bld) 0.4 % Normal [facility] Comment on above: Performed By: #### C GALEN, CMP #### [facility] ([id number]) [address] [place] [address] 26929 Erythrocyte distribution width (RBC) [Ratio] 13.7 % Normal 11.5-15.0 [facility] Comment on above: Performed By: #### C GALEN, CMP #### [facility] ([id number]) [address] [place] [address] 08031 Hematocrit (Bld) [Volume fraction] 41.2 % Normal 35-47 [facility] Comment on above: Performed By: #### C BCA, CMP #### [facility] ([id number]) [address] [place] [address] 85446 Hemoglobin (Bld) [Mass/Vol] 13.7 g/dL Normal 11.7-15.5 [facility] Comment on above: Performed By: #### C BCA, CMP #### [facility] ([id number]) [address] [place] [address] 09977 Lymphocytes (Bld) [#/Vol] 2.8 10*3/uL Normal 1.0-3.5 [facility] Comment on above: Performed By: #### C BCA, CMP #### [facility] ([id number]) [address] [place] [address] 48453 Lymphocytes/100 WBC (Bld) 28.3 % Normal [facility] Comment on above: Performed By: #### C BCA, CMP #### [facility] ([id number]) [address] [place] [address] 61279 MCH (RBC) [Entitic mass] 29.8 pg Normal 27-34 [facility] Comment on above: Performed By: #### C BCA, CMP #### [facility] ([id number]) [address] [place] [address] 94734 MCHC (RBC) [Mass/Vol] 33.4 g/dL Normal 32-36 [facility] Comment on above: Performed By: #### C BCA, CMP #### [facility] ([id number]) [address] [place] [address] 74562 MCV (RBC) [Entitic vol] 89 fL Normal 80-100 [facility] Comment on above: Performed By: #### C BCA, CMP #### [facility] ([id number]) [address] [place] [address] 91023 Monocytes (Bld) [#/Vol] 0.6 10*3/uL Normal 0-0.9 [facility] Comment on above: Performed By: #### C BCA, CMP #### [facility] ([id number]) [address] [place] [address] 51792 Monocytes/100 WBC (Bld) 5.9 % Normal [facility] Comment on above: Performed By: #### C BCA, CMP #### [facility] ([id number]) [address] [place] [address] 07206 Neutrophils/100 WBC (Bld) 65.1 % Normal [facility] Comment on above: Performed By: #### C GALEN, CMP #### [facility] ([id number]) [address] [place] [address] 32731 Platelet mean volume (Bld) [Entitic vol] 7.1 fL Normal 7-12 [facility] Comment on above: Performed By: #### C GALEN, CMP #### [facility] ([id number]) [address] [place] [address] 83136 Platelets (Bld) [#/Vol] 329 10*3/uL Normal 150-450 [facility] Comment on above: Performed By: #### C GALEN, CMP #### [facility] ([id number]) [address] [place] [address] 45561 RBC COUNT 4.60 X10E12/L Normal 3.80-5.20 [facility] Comment on above: Performed By: #### C BCA, CMP #### [facility] ([id number]) [address] [place] [address] 66237 WBC (Bld) [#/Vol] 9.8 10*3/uL Normal 4.0-11.0 [facility] Comment on above: Performed By: #### C BCA, CMP #### [facility] ([id number]) [address] [place] [address] 78743 COMPREHENSIVE METABOLIC PANE Nico 12-10-2023 Albumin [Mass/Vol] 4.6 g/dL Normal 3.2-5.3 [facility] Comment on above: Performed By: #### C BCA, CMP #### [facility] ([id number]) [address] [place] [address] 12316 ALP [Catalytic activity/Vol] 80 U/L Normal 39-130 [facility] Comment on above: Performed By: #### C BCA, CMP #### [facility] ([id number]) [address] [place] [address] 90036 ALT [Catalytic activity/Vol] 23 U/L Normal 0-31 [facility] Comment on above: Performed By: #### C BCA, CMP #### [facility] ([id number]) [address] [place] [address] 34555 Anion gap [Moles/Vol] 6 mmol/L Normal 5-15 [facility] Comment on above: Performed By: #### C BCA, CMP #### [facility] ([id number]) [address] [place] [address] 32986 AST [Catalytic activity/Vol] 20 U/L Normal 0-41 [facility] Comment on above: Performed By: #### C BCA, CMP #### [facility] ([id number]) [address] [place] [address] 71627 Bilirubin [Mass/Vol] 0.3 mg/dL Normal 0.3-1.2 [facility] Comment on above: Performed By: #### C BCA, CMP #### [facility] ([id number]) [address] [place] [address] 82601 Calcium [Mass/Vol] 8.5 mg/dL Normal 8.5-10.5 [facility] Comment on above: Performed By: #### C BCA, CMP #### [facility] ([id number]) [address] [place] [address] 53733 Chloride [Moles/Vol] 105 mmol/L Normal 98-109 [facility] Comment on above: Performed By: #### C BCA, CMP #### [facility] ([id number]) [address] [place] [address] 36939 CO2 [Moles/Vol] 27 mmol/L Normal 22-32 [facility] Comment on above: Performed By: #### C BCA, CMP #### [facility] ([id number]) [address] [place] [address] 57069 Creatinine [Mass/Vol] 0.59 mg/dL Normal 0.40-1.00 [facility] Comment on above: Result Comment: METH OD TRACEABLE TO IDMS STANDARD Performed By: #### C BCA, CMP #### [facility] ([id number]) [address] [place] [address] 38649 eGFR (CKD-EPI) NON-RACE DEPENDENT >90 Normal >59 [facility] Comment on above: Result Comment: Reported eGFR is based on the CKD-EPI 2021 equation that does not use a race coefficient. Performed By: #### C BCA, CMP #### [facility] ([id number]) [address] [place] [address] 64308 Glucose [Mass/Vol] 100 mg/dL High 65-99 [facility] Comment on above: Performed By: #### C BCA, CMP #### [facility] ([id number]) [address] [place] [address] 27771 Potassium [Moles/Vol] 3.5 mmol/L Normal 3.5-5.0 [facility] Comment on above: Performed By: #### C BCA, CMP #### [facility] ([id number]) [address] [place] [address] Protein [Mass/Vol] 7.8 g/dL Normal 6.0-8.0 [facility] Comment on above: Performed By: #### C BCA, CMP #### [facility] ([id number]) [address] [place] [address] [id number] Sodium [Moles/Vol] 138 mmol/L Normal 134-146 [facility] Comment on above: Performed By: #### C BCA, CMP #### [facility] ([id number]) [address] [place] [address] 54894 Urea nitrogen [Mass/Vol] 19 mg/dL Normal 5-23 [facility] Comment on above: Performed By: #### C BCA, CMP #### [facility] ([id number]) [address] [place] [id number] ABDOMEN AND PELVIS W CONT on [...] Gates MD on 12/10/2023 2:08 AM Normal [facility] HCG ( test) Ql (U)o n 12-10-2023 Beta HCG ( test) Ql (U) Negative Normal NEG [facility] Comment on above: Performed By: #### C GALEN, CMP #### [facility] ([id number]) [address] [place] [address] 13075 LIPASEon 12-10-2023 Lipase [Catalytic activity/Vol] 98 U/L High 17-40 [facility] [facility] Comment on above: Performed By: #### C GALEN, CMP #### [facility] ([id number]) [address] [place] [address] 02653 Lactate (P jaime) [Moles/Vol]o n 12-10-2023 LACTATE W/REFLEX 0.6 mmol/L Normal 0.4-2.0 [facility] Comment on above: Result Comment: Result did not trigger repeat Lactate, re-order if needed. Performed By: #### C GALEN, CMP #### [facility] ([id number]) [address] [place] [address] 90829 TROPONIN Ion 12-10-2023 Troponin I.cardiac [Mass/Vol] 0.02 ng/mL Normal 0.00-0.04 [facility] Comment on above: Performed By: #### C GALEN, CMP #### [facility] ([id number]) [address] [place] [address] 99402 URN MACROSCOPIC NURon 2023 BILIRUBIN JUNIOR Negative Normal NEG [facility] Comment on above: Performed By: #### C GALEN, CMP #### [facility] ([id number]) [address] [place] [address] 66103 BLOOD/HGB JUNIOR Large Abnormal NEG [facility] Comment on above: Performed By: #### C GALEN, CMP #### [facility] ([id number]) [address] [place] [address] 23877 GLUCOSE JUNIOR Negative Normal NEG [facility] Comment on above: Performed By: #### C BCA, CMP #### [facility] ([id number]) [address] [place] [address] 39821 KETONES JUNIOR Trace Abnormal NEG [facility] Comment on above: Performed By: #### C BCA, CMP #### [facility] ([id number]) [address] [place] [address] 24732 LEUKOCYTE ESTERASE JUNIOR Negative Normal NEG [facility] Comment on above: Performed By: #### C BCA, CMP #### [facility] ([id number]) [address] [place] [address] 10488 NITRITE JUNIOR Negative Normal NEG [facility] Comment on above: Performed By: #### C BCA, CMP #### [facility] ([id number]) [address] [place] [address] 73980 PH JUNIOR 6.0 Normal 5.0-8.5 [facility] Comment on above: Performed By: #### C BCA, CMP #### [facility] ([id number]) [address] [place] [address] 90287 PROTEIN JUNIOR Negative Normal NEG [facility] Comment on above: Performed By: #### C BCA, CMP #### [facility] ([id number]) [address] [place] [address] 62073 SPECIFIC GRAVITY JUNIOR >=1.030 Normal 1.003-1.035 [facility] Comment on above: Performed By: #### C BCA, CMP #### [facility] ([id number]) [address] [place] [address] 52630 UROBILINOGEN JUNIOR 0.2 eu/dL Normal <1.1 [facility] Comment on above: Performed By: #### C BCA, CMP #### [facility] ([id number]) [address] [place] [address] 94364 XR CHEST 1 VWon 03-01-2024 XR CHEST 1 VW XR CHEST 1 [...] Gates MD on 12/10/2023 1:59 AM Normal [facility] Orders Onlyon 11-23-2023 Orders Only [id number] Madyson Moore ma 1980 F Date Provider Department Center 11/23/2023 RUKHSANA ESPINOZA PAIN [facility] Family History Problem Relation Age of Onset Brain cancer Mother Breast cancer Sister Kidney cancer Maternal Grandmother Prostate cancer Paternal Grandfather Cancer Father Cancer Sister Family Status - Relation Status Age at Mother Sister Maternal Grandmother Paternal Grandfather Father Sister Normal [facility] H. pylori Ag IA Ql (Stl)on 0 11-19-2023 H. PYLORI ANTG STOOL See Below Normal [facility] Comment on above: Result Comment: NOTE TEST RESULT FLAG UNIT REF.RANGE ---- EIA Test See Below Negative for H. Pylori antigen by EIA H.PYLORI EIA RESULT Negative for Helicobacter pylori antigen by EIA SOURCE: STOOL Test Performed By: [facility] [address] [place] [address] Curriculum Facilitator: Duy Benítez IIIIA #[id number] Performed By: #### C BCA, CMP #### [facility] ([id number]) [address] [place] [address] 96764 Gastrin [Mass/Vol]on 024 GASTRIN 62.9 pg/mL Normal <115.0 [facility] Comment on above: Result Comment: NOTE The Gastrin test was performed using the Siemens Immulite chemiluminescent immunometric method. Results obtained with different assay methods or kits cannot be used interchangeably. Test Performed By: [facility] [address] [place] [address] Curriculum Facilitator: Anurag Seth III, M.D. CLIA #[id number] Performed By: #### 2 333-3 #### [facility] ([id number]) [address] [place] [address], [place] [address] Transfer Inon 11-05-2023 Transfer In [id number] Normal [facility] Follow-Upon 10-28-2023 Follow-Up [id number] Madyson Moore 1980 F Date Provider Department Center 10/28/2023 170-RUKHSANA MILLER MP PAIN [facility] Family History Problem Relation Age of Onset Brain cancer Mother Breast cancer Sister Kidney cancer Maternal Grandmother Prostate cancer Paternal Grandfather Cancer Father Cancer Sister Family Status - Relation Status Age at Mother Sister Maternal Grandmother Paternal Grandfather Father Sister Level of Service:26471 [place] OFFICE/OUTPATIENT ESTABLISHED LOW MDM 20 MIN Reason for Visit and Comments: Knee Pain [006199] - left Normal [facility] 36on 10-20-2023 36 Approving, but needs appt for additional refills. Normal [facility] Orders Onlyon 10-20-2023 Orders Only [id number] Madyson Moore 1980 F Date Provider Department Center 10/20/202388049-NVLHMITCHELL APARICIO MP PROC [facility] Family History Problem Relation Age of Onset Brain cancer Mother Breast cancer Sister Kidney cancer Maternal Grandmother Prostate cancer Paternal Grandfather Cancer Father Cancer Sister Family Status - Relation Status Age at Mother Sister Maternal Grandmother Paternal Grandfather Father Sister Normal [facility] Orders Onlyon 10-19-2023 Orders Only [id number] Madyson Moore 1980 F Date Provider Department Center 10/19/2023 [facility] R[facility] Arturo [facility] Family History Problem Relation Age of Onset Brain cancer Mother Breast cancer Sister Kidney cancer Maternal Grandmother Prostate cancer Paternal Grandfather Cancer Father Cancer Sister Family Status - Relation Status Age at Mother Sister Maternal Grandmother Paternal Grandfather Father Sister [facility] 36on 10-18-2023 36 Patient is calling f or medication refill to be sent to pharmacy. Thank you [facility] BASIC METABOLIC PANLon 10-14 Anion gap [Moles/Vol] 10 mmol/L Normal 5-15 [facility] Comment on above: Performed By: #### B MP, LIVR, CBCA, 3040-3 #### [facility] ([id number]) [address] [place] [address] 42459 Calcium [Mass/Vol] 8.6 mg/dL Normal 8.5-10.5 [facility] Comment on above: Performed By: #### B MP, LIVR, CBCA, 3040-3 #### [facility] ([id number]) [address] [place] [address] 42985 Chloride [Moles/Vol] 100 mmol/L Normal 98-109 [facility] Comment on above: Performed By: #### B MP, LIVR, CBCA, 3040-3 #### [facility] ([id number]) [address] [place] [address] 65392 CO2 [Moles/Vol] 27 mmol/L Normal 22-32 [facility] Comment on above: Performed By: #### B MP, LIVR, CBCA, 3040-3 #### [facility] ([id number]) [address] [place] [address] 49469 Creatinine [Mass/Vol] 0.76 mg/dL Normal 0.40-1.00 [facility] Comment on above: Result Comment: METH OD TRACEABLE TO IDMS STANDARD Performed By: #### B MP, LIVR, CBCA, 3040-3 #### [facility] ([id number]) [address] [place] [address] 82803 eGFR (CKD-EPI) NON-RACE DEPENDENT >90 Normal >59 [facility] Comment on above: Result Comment: Reported eGFR is based on the CKD-EPI 2020 equation that does not use a race coefficient. Performed By: #### B MP, LIVR, CBCA, 0-3 #### [facility] ([id number]) [address] [place] [address] 62130 Glucose [Mass/Vol] 84 mg/dL Normal 65-99 [facility] Comment on above: Performed By: #### B MP, LIVR, CBCA, 0-3 #### [facility] ([id number]) [address] [place] [address] 91213 Potassium [Moles/Vol] 3.5 mmol/L Normal 3.5-5.0 [facility] Comment on above: Performed By: #### B MP, LIVR, CBCA, 0-3 #### [facility] ([id number]) [address] [place] [address] 14238 Sodium [Moles/Vol] 137 mmol/L Normal 134-146 [facility] Comment on above: Performed By: #### B MP, LIVR, CBCA, 0-3 #### [facility] ([id number]) [address] [place] [address] 33933 Urea nitrogen [Mass/Vol] 16 mg/dL Normal 5-23 [facility] Comment on above: Performed By: #### B MP, LIVR, CBCA, 0-3 #### [facility] ([id number]) [address] [place] [address] 96429 CBC AND AUTO DIFFon 10-14-19 24 ABSOLUTE BASOPHIL 0.0 X10E9/L Normal 0.0-0.2 [facility] Comment on above: Performed By: #### B MP, LIVR, CBCA, 3039-12 #### [facility] ([id number]) [address] [place] [address] 77445 ABSOLUTE NEUTROPHIL 3.6 X10E9/L Normal 1.5-6.6 [facility] Comment on above: Performed By: #### B MP, LIVR, CBCA, 3039-12 #### [facility] ([id number]) [address] [place] [address] 09228 Basophils/100 WBC (Bld) 0.2 % Normal [facility] Comment on above: Performed By: #### B MP, LIVR, CBCA, 3039-12 #### [facility] ([id number]) [address] [place] [address] 17327 Eosinophils (Bld) [#/Vol] 0.1 10*3/uL Normal 0.0-0.4 [facility] Comment on above: Performed By: #### B MP, LIVR, CBCA, 3039-12 #### [facility] ([id number]) [address] [place] [address] 35398 Eosinophils/100 WBC (Bld) 1.7 % Normal [facility] Comment on above: Performed By: #### B MP, LIVR, CBCA, 3039-12 #### [facility] ([id number]) [address] [place] [address] 92095 Erythrocyte distribution width (RBC) [Ratio] 14.0 % Normal 11.5-15.0 [facility] Comment on above: Performed By: #### B MP, LIVR, CBCA, 3039-12 #### [facility] ([id number]) [address] [place] [address] 71206 Hematocrit (Bld) [Volume fraction] 35.0 % Normal 35-47 [facility] Comment on above: Performed By: #### B MP, LIVR, CBCA, 3 #### [facility] ([id number]) [address] [place] [address] 12314 Hemoglobin (Bld) [Mass/Vol] 11.8 g/dL Normal 11.7-15.5 [facility] Comment on above: Performed By: #### B MP, LIVR, CBCA, 3039-12 #### [facility] ([id number]) [address] [place] [address] 11718 Lymphocytes (Bld) [#/Vol] 3.0 10*3/uL Normal 1.0-3.5 [facility] Comment on above: Performed By: #### B MP, LIVR, CBCA, 3039-12 #### [facility] ([id number]) [address] [place] [address] 91137 Lymphocytes/100 WBC (Bld) 41.6 % Normal [facility] Comment on above: Performed By: #### B MP, LIVR, CBCA, 3039-12 #### [facility] ([id number]) [address] [place] [address] 81960 MCH (RBC) [Entitic mass] 29.6 pg Normal 27-34 [facility] Comment on above: Performed By: #### B MP, LIVR, CBCA, 3039-12 #### [facility] ([id number]) [address] [place] [address] 03939 MCHC (RBC) [Mass/Vol] 33.8 g/dL Normal 32-36 [facility] Comment on above: Performed By: #### B MP, LIVR, CBCA, 3 #### [facility] ([id number]) [address] [place] [address] 53170 MCV (RBC) [Entitic vol] 88 fL Normal 80-100 [facility] Comment on above: Performed By: #### B MP, LIVR, CBCA, 3 #### [facility] ([id number]) [address] [place] [address] 56415 Monocytes (Bld) [#/Vol] 0.4 10*3/uL Normal 0-0.9 [facility] Comment on above: Performed By: #### B MP, LIVR, CBCA, 3039-12 #### [facility] ([id number]) [address] [place] [address] 16479 Monocytes/100 WBC (Bld) 5.6 % Normal [facility] Comment on above: Performed By: #### B MP, LIVR, CBCA, 3039-12 #### [facility] ([id number]) [address] [place] [address] 85298 Neutrophils/100 WBC (Bld) 50.9 % Normal [facility] Comment on above: Performed By: #### B MP, LIVR, CBCA, 3039-12 #### [facility] ([id number]) [address] [place] [address] 62246 Platelet mean volume (Bld) [Entitic vol] 7.5 fL Normal 7-12 [facility] Comment on above: Performed By: #### B MP, LIVR, CBCA, 3039-12 #### [facility] ([id number]) [address] [place] [address] 75713 Platelets (Bld) [#/Vol] 256 10*3/uL Normal 150-450 [facility] Comment on above: Performed By: #### B MP, LIVR, CBCA, 3 #### [facility] ([id number]) [address] [place] [address] 96031 RBC COUNT 3.99 X10E12/L Normal 3.80-5.20 [facility] Comment on above: Performed By: #### B MP, LIVR, CBCA, 3040-3 #### [facility] ([id number]) [address] [place] [address] 65365 WBC (Bld) [#/Vol] 7.1 10*3/uL Normal 4.0-11.0 [facility] Comment on above: Performed By: #### B MP, LIVR, CBCA, 3040-3 #### [facility] ([id number]) [address] [place] [address] 89757 ABSOLUTE BASOPHIL 0.0 X10E9/L Normal 0.0-0.2 [facility] Comment on above: Performed By: #### C BCA, CMP #### [facility] ([id number]) [address] [place] [address] 31104 ABSOLUTE NEUTROPHIL 4.5 X10E9/L Normal 1.5-6.6 [facility] Comment on above: Performed By: #### C BCA, CMP #### [facility] ([id number]) [address] [place] [address] 44776 Basophils/100 WBC (Bld) 0.2 % Normal [facility] Comment on above: Performed By: #### C BCA, CMP #### [facility] ([id number]) [address] [place] [address] 63440 Eosinophils (Bld) [#/Vol] 0.1 10*3/uL Normal 0.0-0.4 [facility] Comment on above: Performed By: #### C BCA, CMP #### [facility] ([id number]) [address] [place] [address] 38442 Eosinophils/100 WBC (Bld) 1.1 % Normal [facility] Comment on above: Performed By: #### C BCA, CMP #### [facility] ([id number]) [address] [place] [address] 11144 Erythrocyte distribution width (RBC) [Ratio] 13.8 % Normal 11.5-15.0 [facility] Comment on above: Performed By: #### C GALEN, CMP #### [facility] ([id number]) [address] [place] [address] 90861 Hematocrit (Bld) [Volume fraction] 36.9 % Normal 35-47 [facility] Comment on above: Performed By: #### C GALEN, CMP #### [facility] ([id number]) [address] [place] [address] 43872 Hemoglobin (Bld) [Mass/Vol] 12.5 g/dL Normal 11.7-15.5 [facility] Comment on above: Performed By: #### C GALEN, CMP #### [facility] ([id number]) [address] [place] [address] 97843 Lymphocytes (Bld) [#/Vol] 3.5 10*3/uL Normal 1.0-3.5 [facility] Comment on above: Performed By: #### C GALEN, CMP #### [facility] ([id number]) [address] [place] [address] 18299 Lymphocytes/100 WBC (Bld) 40.4 % Normal [facility] Comment on above: Performed By: #### C GALEN, CMP #### [facility] ([id number]) [address] [place] [address] 12148 MCH (RBC) [Entitic mass] 29.2 pg Normal 27-34 [facility] Comment on above: Performed By: #### C GALEN, CMP #### [facility] ([id number]) [address] [place] [address] 11013 MCHC (RBC) [Mass/Vol] 33.8 g/dL Normal 32-36 [facility] Comment on above: Performed By: #### C GALEN, CMP #### [facility] ([id number]) [address] [place] [address] 52659 MCV (RBC) [Entitic vol] 86 fL Normal 80-100 [facility] Comment on above: Performed By: #### C GALEN, CMP #### [facility] ([id number]) [address] [place] [address] 69427 Monocytes (Bld) [#/Vol] 0.5 10*3/uL Normal 0-0.9 [facility] Comment on above: Performed By: #### C GALEN, CMP #### [facility] ([id number]) [address] [place] [address] 55891 Monocytes/100 WBC (Bld) 6.2 % Normal [facility] Comment on above: Performed By: #### C GALEN, CMP #### [facility] ([id number]) [address] [place] [address] 90963 Neutrophils/100 WBC (Bld) 52.1 % Normal [facility] Comment on above: Performed By: #### C GALEN, CMP #### [facility] ([id number]) [address] [place] [address] 55382 Platelet mean volume (Bld) [Entitic vol] 7.8 fL Normal 7-12 [facility] Comment on above: Performed By: #### C GALEN, CMP #### [facility] ([id number]) [address] [place] [address] 23489 Platelets (Bld) [#/Vol] 293 10*3/uL Normal 150-450 [facility] Comment on above: Performed By: #### C GALEN, CMP #### [facility] ([id number]) [address] [place] [address] 90446 RBC COUNT 4.26 X10E12/L Normal 3.80-5.20 [facility] Comment on above: Performed By: #### C GALEN, CMP #### [facility] ([id number]) [address] [place] [address] 01751 WBC (Bld) [#/Vol] 8.7 10*3/uL Normal 4.0-11.0 [facility] Comment on above: Performed By: #### C BCA, CMP #### [facility] ([id number]) [address] [place] [address] [place] [address] COMPREHENSIVE METABOLIC PANE Nico 10-14-2023 Albumin [Mass/Vol] 4.4 g/dL Normal 3.2-5.3 [facility] Comment on above: Performed By: #### C BCA, CMP #### [facility] ([id number]) [address] [place] [address] 14344 ALP [Catalytic activity/Vol] 104 U/L Normal 39-130 [facility] Comment on above: Performed By: #### C BCA, CMP #### [facility] ([id number]) [address] [place] [address] 25681 ALT [Catalytic activity/Vol] 14 U/L Normal 0-31 [facility] Comment on above: Performed By: #### C BCA, CMP #### [facility] ([id number]) [address] [place] [address] 66738 Anion gap [Moles/Vol] 9 mmol/L Normal 5-15 [facility] Comment on above: Performed By: #### C BCA, CMP #### [facility] ([id number]) [address] [place] [address] 70843 AST [Catalytic activity/Vol] 18 U/L Normal 0-41 [facility] Comment on above: Performed By: #### C BCA, CMP #### [facility] ([id number]) [address] [place] [address] 93927 Bilirubin [Mass/Vol] 0.8 mg/dL Normal 0.3-1.2 [facility] Comment on above: Performed By: #### C BCA, CMP #### [facility] ([id number]) [address] [place] [address] 55708 Calcium [Mass/Vol] 9.0 mg/dL Normal 8.5-10.5 [facility] Comment on above: Performed By: #### C BCA, CMP #### [facility] ([id number]) [address] [place] [address] 06236 Chloride [Moles/Vol] 102 mmol/L Normal 98-109 [facility] Comment on above: Performed By: #### C BCA, CMP #### [facility] ([id number]) [address] [place] [address] 36492 CO2 [Moles/Vol] 28 mmol/L Normal 22-32 [facility] Comment on above: Performed By: #### C BCA, CMP #### [facility] ([id number]) [address] [place] [address] 46932 Creatinine [Mass/Vol] 0.74 mg/dL Normal 0.40-1.00 [facility] Comment on above: Result Comment: METH OD TRACEABLE TO IDMS STANDARD Performed By: #### C BCA, CMP #### [facility] ([id number]) [address] [place] [address] 49300 eGFR (CKD-EPI) NON-RACE DEPENDENT >90 Normal >59 [facility] Comment on above: Result Comment: Reported eGFR is based on the CKD-EPI 2020 equation that does not use a race coefficient. Performed By: #### C BCA, CMP #### [facility] ([id number]) [address] [place] [address] 15852 Glucose [Mass/Vol] 98 mg/dL Normal 65-99 [facility] Comment on above: Performed By: #### C BCA, CMP #### [facility] ([id number]) [address] [place] [address] 62930 Potassium [Moles/Vol] 3.7 mmol/L Normal 3.5-5.0 [facility] Comment on above: Performed By: #### C BCA, CMP #### [facility] ([id number]) [address] [place] [address] 12870 Protein [Mass/Vol] 7.9 g/dL Normal 6.0-8.0 [facility] Comment on above: Performed By: #### C BCA, CMP #### [facility] ([id number]) [address] [place] [address] 05267 Sodium [Moles/Vol] 139 mmol/L Normal 134-146 [facility] Comment on above: Performed By: #### C BCA, CMP #### [facility] ([id number]) [address] [place] [address] 26636 Urea nitrogen [Mass/Vol] 17 mg/dL Normal 5-23 [facility] Comment on above: Performed By: #### C BCA, CMP #### [facility] ([id number]) [address] [place] [address] ABDOMEN AND PELVIS W CONT on [...] Awad MD on 10/14/2023 12:24 AM Normal [facility] CT ABDOMEN AND PELVIS WO CON [...] Awad MD on 10/13/2023 11:00 PM Normal [facility] LIPASEon 10-14-2023 Lipase [Catalytic activity/Vol] 42 U/L High 17-40 [facility] Comment on above: Performed By: #### B MP, LIVR, CBCA, 3040-3 #### [facility] ([id number]) [address] [place] [address] 43485 LIVER PANELon 10-14-2023 Albumin [Mass/Vol] 4.1 g/dL Normal 3.2-5.3 [facility] Comment on above: Performed By: #### B MP, LIVR, CBCA, 3040-3 #### [facility] ([id number]) [address] [place] [address] 21037 ALP [Catalytic activity/Vol] 99 U/L Normal 39-130 [facility] Comment on above: Performed By: #### B MP, LIVR, CBCA, 3040-3 #### [facility] ([id number]) [address] [place] [address] 71250 ALT [Catalytic activity/Vol] 14 U/L Normal 0-31 [facility] Comment on above: Performed By: #### B MP, LIVR, CBCA, 3040-3 #### [facility] ([id number]) [address] [place] [address] AST [Catalytic activity/Vol] 20 U/L Normal 0-41 [facility] Comment on above: Performed By: #### B RHIANNA, LIVR, CBCA, 3040-3 #### [facility] ([id number]) [address] [place] [address] 88215 Bilirubin [Mass/Vol] 0.8 mg/dL Normal 0.3-1.2 [facility] Comment on above: Performed By: #### B RHIANNA, LIVR, CBCA, 3040-3 #### [facility] ([id number]) [address] [place] [address] 17465 Bilirubin.direct [Mass/Vol] 0.1 mg/dL Normal 0.0-0.4 [facility] Comment on above: Performed By: #### B RHIANNA, LIVR, CBCA, 3040-3 #### [facility] ([id number]) [address] [place] [address] 97964 Protein [Mass/Vol] 7.4 g/dL Normal 6.0-8.0 [facility] Comment on above: Performed By: #### B RHIANNA, LIVR, CBCA, 3040-3 #### [facility] ([id number]) [address] [place] [address] 83339 Pre-Certification Formon Pre-Certification Form [id number] Normal [facility] URN MACROSCOPIC NURon 2023 BILIRUBIN JUNIOR Negative Normal NEG [facility] Comment on above: Performed By: #### N UM #### [facility] ([id number]) [address] [place] [address] 45726 BLOOD/HGB JUNIOR Large Abnormal NEG [facility] Comment on above: Performed By: #### N UM #### [facility] ([id number]) [address] [place] [address] GLUCOSE JUNIOR Negative Normal NEG [facility] Comment on above: Performed By: #### N UM #### [facility] ([id number]) [address] [place] [address] [place] [address] KETONES JUNIOR Negative Normal NEG [facility] Comment on above: Performed By: #### N UM #### [facility] ([id number]) [address] [place] [address] [place] [address] LEUKOCYTE ESTERASE JUNIOR Trace Abnormal NEG [facility] Comment on above: Performed By: #### N UM #### [facility] ([id number]) [address] [place] [address] NITRITE JUNIOR Negative Normal NEG [facility] Comment on above: Performed By: #### N UM #### [facility] ([id number]) [address] [place] [address] PH JUNIOR 7.0 Normal 5.0-8.5 [facility] Comment on above: Performed By: #### N UM #### [facility] ([id number]) [address] [place] [address] 80009 PROTEIN JUNIOR Negative Normal NEG [facility] Comment on above: Performed By: #### N UM #### [facility] ([id number]) [address] [place] [address] 96544 SPECIFIC GRAVITY JUNIOR 1.025 Normal 1.003-1.035 [facility] Comment on above: Performed By: #### N UM #### [facility] ([id number]) [address] [place] [address] 11898 UROBILINOGEN JUNIOR 1.0 eu/dL Normal <1.1 [facility] Comment on above: Performed By: #### N UM #### [facility] ([id number]) [address] [place] [address] 32610 Consent for Procedure/Surger yon 10-12-2023 Consent for Procedure/Surgery [id number]#1.00TIFF Normal [facility] Consent for Treatmenton Consent for Treatment [id number]#1.00TIFF Normal [facility] Insurance Correspondenceon 0 10-12-2023 Insurance Correspondence [id number]#1.00TIFF Normal [facility] IntraOperative Documentson 0 10-12-2023 IntraOperative Documents [id number]#1.00TIFF Normal [facility] IntraOperative Documents [id number]#1.00TIFF Normal [facility] Main OR Intraoperative Recor don 10-12-2023 Main OR Intraoperative Record IntraOp Document Type FTURO Summary Primary Physician: Diana HAWKINS MD Finalized Date/Time: 10/12/23 10:37:58 Pt. Name: TERESAELVIO.B./Sex: 1980 Female Med Rec #: [id number] Physician: Diana HAWKINS MD Financial #: [id number] Pt. Type: O Room/Bed: / Admit/Disch: 10/12/23 09:34:46 - Institution: Case Times FTURO Entry 1 Patient Times In Room 10/12/23 10:29:00 Out Room 10/12/23 10:43:00 Procedure Times Start 10/12/23 10:32:00 Stop 10/12/23 10:38:00 Anesthesia Times Last Modified By: Ashish ROBLEDO, Kesha STEINER 10/12/23 10:35:54 Case Attendance FTURO Entry 1 Entry 2 Entry 3 Case Attendee ROSS GENTILE, Diana Lowe, Asia Hinojosa RN, Kesha STEINER Role Performed Surgeon - Primary Scrub - Primary Litigation Manager - Primary Time In 10/12/23 10:29:00 10/12/23 10:29:00 10/12/23 10:29:00 Time Out 10/12/23 10:43:00 10/12/23 10:43:00 10/12/23 10:43:00 Procedure CYSTOSCOPY LOCAL WITH CYSTOSCOPY LOCAL WITH CYSTOSCOPY LOCAL WITH STENT REMOVAL(Left) STENT REMOVAL(Left) STENT REMOVAL(Left) Comments Last Modified By: Ashish ROBLEDO, TRACEYOR, Ashish ROBLEDO, TRACEYOR, Ashish ROBLEDO, JATIN, Kesha 10/12/23 Kesha 10/12/23 Kesha 10/12/23 10:35:55 10:35:55 10:35:55 Surgical Procedures FTURO Entry 1 Procedure Description Procedure CYSTOSCOPY LOCAL WITH Modifiers Left STENT REMOVAL Surgeon Description CYSTO LEFT STENT REMOVAL Primary Procedure Yes Primary Surgeon Diana HAWKINS MD Start 10/12/23 10:32:00 Stop 10/12/23 10:38:00 Anesthesia Type Local Surgical Service Urology Wound Class 2 - Clean-Contaminated Last Modified By: JATIN Hinojosa RN, Kesha 10/12/23 10:35:56 General Case Data FTURO [...] JATIN Hinojosa RN, Ruthann 10/12/23 10:37 Normal [facility] Main OR Preoperative Recordo n 10-12-2023 Main OR Preoperative Record Holding Area Document Type FTURO Summary Primary Physician: Diana HAWKINS MD Finalized Date/Time: 10/12/23 10:32:11 Pt. Name: ELVI MOORE/Sex: 1980 Female Med Rec #: [id number] Physician: Diana HAWKINS MD Financial #: [id number] Pt. Type: O Room/Bed: / Admit/Disch: 10/12/23 [...] JATIN Hinojosa RN, Ruthann 10/12/23 10:32 Normal [facility] Operative Reporton Operative Report Patient: DIEGO [...] procedure well and was subsequently discharged home. [facility] Comment on above: Result Comment: Elec tronically Signed By: ROSS GENTILE, Diana Crandall\Date and Time Signed: 10/12/23 10:38 EST Outpatient Surgery Discharge Instructionon 10-12-2023 Outpatient Surgery Discharge Instruction [id number]#1.00TIFF [facility] Formson 10-08-2023 Forms [id number]#1.00TIFF [facility] ED Note-Physicianon 10-07-20 ED Note-Physician [id number]#1.00TIFF [facility] Formson 10-07-2023 Forms [id number]#1.00TIFF [facility] Lab Reportson 10-07-2023 Lab Reports [id number]#1.00TIFF [facility] RAD - CT Reporton 10-07-2023 RAD - CT Report [id number]#1.00TIFF [facility] Lab Reportson 09-27-2023 Lab Reports [id number]#1.00TIFF [facility] OARRS Reporton 09-27-2023 OARRS Report [id number]#1.00TIFF [facility] Pre-Certification Formon Pre-Certification Form [id number]#1.00TIFF [facility] Provider Letteron 09-27-2023 Provider Letter (Inserted Image. Darleen ble to display) September 27, 2023 ELVI TERESA Didier [place] [address] : 1980 To Whom It May Concern, Please excuse above patient from work. Date of Illness: From: 09/16/2023 To: 09/28/2023 May Return to Work On:09/29/2023 Restrictions: No Restrictions Comments: Any questions, please call our office Sincerely, [facility] [address], [place] [address] [facility] Provider Letter (Inserted Image. Darleen ble to display) September 27, 2023 ELVI TERESA Didier JARVISKATYA ZEPEDA [facility] [place] [address] : 1980 To Whom It May Concern, Please excuse above patient from work. Date of Illness: From: 09/16/2023 To: 09/28/2023 May Return to Work On: 09/29/2023 Restrictions: No Restrictios Comments: _ Sincerely, [facility] [address] [place] [address] [facility] Formson 09-22-2023 Forms [id number]#1.00TIFF [facility] RAD - MISCon 09-21-2023 [facility] - MIS [id number]#1.00TIFF [facility] Provider Letteron 09-20-2023 Provider Letter (Inserted Image. Darleen ble to display) September 20, 2023 ELVIJAIRO MOORE Didier MARIANA [place]EP[place] [address] : 1980 To Whom It May Concern, Please excuse above patient from work. Date of Illness: From: 09/16/23 To: 09/21/23 May Return to Work On: 09/22/23 Restrictions: N/A Comments: Patient may return to work 09/22/23. Patient had a surgical procedure done 09/16/[address] Diana Hawkins. Sincerely, [facility] at [facility] ECG 12-Leadon 09-17-2023 ECG 12-Lead [id number]#1.00TIFF [facility] Lab Reportson 09-17-2023 Lab Reports [id number]#1.00TIFF [facility] RAD - CT Reporton 09-17-2023 RAD - CT Report [id number]#1.00TIFF Normal [facility] RAD - MISCon 09-17-2023 RAD - MISC [id number]#1.00TIFF [facility] RAD - Ultrasound Reporton RAD - Ultrasound Report [id number]#1.00TIFF [facility] Operative Reporton Operative Report [id number]#1.00TIFF [facility] ED Note-Physicianon 09-14-20 ED Note-Physician [id number]#1.00TIFF [facility] Insurance Correspondenceon 11-15-2022 Insurance Correspondence [id number]#1.00TIFF [facility] RAD - CT Reporton 09-14-2023 RAD - CT Report [id number]#1.00TIFF [facility] RAD - CT Report [id number]#1.00TIFF [facility] Ambulatory Visit Summaryon 11-14-2022 Ambulatory Visit Summary ELVI MOORE :1980 Visit Date:09/13/2023 Ambulatory Visit Instructions Your Diagnosis Kidney stone Gross hematuria Left flank pain Tests Performed Urnls Dip Stick Auto w/o Microscopy POC 48143 Your Care Team Attending Physician - ROSS GENTILE, Diana Goss Primary Care Physician - Yasir Acharya MD Referring Physician - Yasir Acharya MD This Is Your Medications List [...] [facility] [address] , [place] [phone] Medications What How Much When Instructions Unchanged [...] Urnls Dip Stick Auto w/o Microscopy POC 19164 (09/13/2023) Bilirubin Urine Dipstick - Negative Blood Urine Dipstick - 2+ Moderate Glucose Urine Dipstick - Negative Ketones Urine Dipstick - Negative Leukocytes Urine Dipstick - Negative Nitrite Urine Dipstick - Negative Protein Urine Dipstick - Negative Specific [place] Urine Dipstick - 1.025 Urine Appearance Urine [...] including vitamins, herbs, eye drops, creams, and jiwv-quj-rfhroaa medicines. ? Any problems you or family members have had with anesthetic medicines. ? Any blood disorders you have. ? Any surgeries you have had. ? Any m (more content not included)... Normal [facility] Consent for Procedure/Surger yon 09-13-2023 Consent for Procedure/Surgery [id number]#1.00TIFF [facility] 36on 09-08-2023 36 Patient seen in the ER for a large kidney stone. Was prescribed Oxycodone medication for pain discomfort. Patient would like to know if this will be ok for her to get from pharmacy. Please advise [phone]. Thank you [facility] Consultation Noteon 08-23-20 Consultation Note [id number]#1.00TIFF [facility] Lab Reportson 08-23-2023 Lab Reports [id number]#1.00TIFF [facility] Consultation Noteon 08-20-20 Consultation Note [id number]#1.00TIFF [facility] Follow-Upon 08-19-2023 Follow-Up [id number] Madyson Moore 1980 F Date Provider Department Center 08/19/2023 CURLY ROSE MP [facility] Family History Problem Relation Age of Onset Brain cancer Mother Breast cancer Sister Kidney cancer Maternal Grandmother Prostate cancer Paternal Grandfather Cancer Father Cancer Sister Family Status - Relation Status Age at Mother Sister Maternal Grandmother Paternal Grandfather Father Sister Level of Service:72978 [place] OFFICE/OUTPATIENT ESTABLISHED MOD MDM 30-39 MIN Reason for Visit and Comments: Follow-up [169854] - Chronic Left Knee Pain Normal [facility] Follow-Upon 07-20-2023 Follow-Up [id number] Madyson Moore 1980 F Date Provider Department Center 07/20/2023 CURLY ROSE MP [facility] Family History Problem Relation Age of Onset Brain cancer Mother Breast cancer Sister Kidney cancer Maternal Grandmother Prostate cancer Paternal Grandfather Cancer Father Cancer Sister Family Status - Relation Status Age at Mother Sister Maternal Grandmother Paternal Grandfather Father Sister Level of Service:28705 [place] OFFICE/OUTPATIENT ESTABLISHED MOD MDM 30-39 MIN Reason for Visit and Comments: Follow-up [193691] - Left knee pain Normal [facility] Orders Onlyon 07-07-2023 Orders Only [id number] Madyson Moore ma 1980 F Date Provider Department Center 07/07/2023 170-RUKHSANA MILLER MP [facility] Family History Problem Relation Age of Onset Brain cancer Mother Breast cancer Sister Kidney cancer Maternal Grandmother Prostate cancer Paternal Grandfather Cancer Father Cancer Sister Family Status - Relation Status Age at Mother Sister Maternal Grandmother Paternal Grandfather Father Sister Normal [facility] 36on 06-09-2023 36 Approving, but needs appt for additional refills. [facility] 36 Patient is cayla dsouza her [place] 5/325 refill, needs it before the weekend. Please and thank you so much. [facility] Ferritinon 05-28-2023 Ferritin [Mass/Vol] 4.9 ng/mL Low 11.0-306.8 [facility] Comment on above: Result Comment: PERF ORMED BY: [place] [address] PATHOLOGIST TICKET AGENT MELISSA WAGNER M.D. Performed By: #### S CAN CBC, JANESSA, FE and TIBC #### [facility] [address] Iron and TIBC Profileon 05-11 % Iron Saturation 2.5 % Low 20-50 [facility] Comment on above: Performed By: #### S CAN CBC, JANESSA, FE and TIBC #### [facility] [address] [id number] [facility] Iron [Mass/Vol] 13 ug/dL Low 50-212 [facility] Comment on above: Performed By: #### S CAN CBC, JANESSA, FE and TIBC #### [facility] [address] [id number] [facility] Total Iron Binding Capacity 517 ug/dL High 255-450 [facility] Comment on above: Performed By: #### S CAN CBC, JANESSA, FE and TIBC #### [address] Transferrin [Mass/Vol] 369 mg/dL High 203-362 [facility] Comment on above: Performed By: #### S CAN CBC, JANESSA, FE and TIBC #### [address] Scan and CBCon 05-28-2023 Anisocytosis Ql (Bld) Marked Normal [facility] Comment on above: Performed By: #### S CAN CBC, JANESSA, FE and TIBC #### [address] Basophils (Bld) [#/Vol] 0.0 10*3/uL Normal 0.0-0.2 [facility] Comment on above: Performed By: #### S CAN CBC, JANESSA, FE and TIBC #### [address] Basophils/100 WBC (Bld) 0.3 % Normal . [facility] Comment on above: Performed By: #### S CAN CBC, JANESSA, FE and TIBC #### [address] Eosinophils (Bld) [#/Vol] 0.0 10*3/uL Normal 0.0-0.45 [facility] Comment on above: Performed By: #### S CAN CBC, JANESSA, FE and TIBC #### [address] Eosinophils/100 WBC (Bld) 0.6 % Normal . [facility] Comment on above: Performed By: #### S CAN CBC, JANESSA, FE and TIBC #### [address] Erythrocyte distribution width (RBC) [Ratio] 20.1 % High 11.9-15.3 [facility] Comment on above: Performed By: #### S CAN CBC, JANESSA, FE and TIBC #### [address] Hematocrit (Bld) [Volume fraction] 28.6 % Low 34.0-46.4 [facility] Comment on above: Performed By: #### S CAN CBC, JANESSA, FE and TIBC #### [address] Hemoglobin (Bld) [Mass/Vol] 8.9 g/dL Low 11.8-15.4 [facility] Comment on above: Performed By: #### S CAN CBC, JANESSA, FE and TIBC #### [address] Hypochromasia Moderate Normal [facility] Comment on above: Performed By: #### S CAN CBC, JANESSA, FE and TIBC #### [address] Lymphocytes (Bld) [#/Vol] 2.6 10*3/uL Normal 1.00-4.8 [facility] Comment on above: Performed By: #### S CAN CBC, JANESSA, FE and TIBC #### [address] Lymphocytes/100 WBC (Bld) 37.7 % Normal . [facility] Comment on above: Performed By: #### S CAN CBC, JANESSA, FE and TIBC #### [address] MCH (RBC) [Entitic mass] 20.5 pg Low 24.7-34.3 [facility] Comment on above: Performed By: #### S CAN CBC, JANESSA, FE and TIBC #### [address] MCV (RBC) [Entitic vol] 65.8 fL Low 80-100 [facility] Comment on above: Performed By: #### S CAN CBC, JANESSA, FE and TIBC #### [address] Mean Corpuscular HGB Conc 31.1 g/dL Low 32.0-35.0 [facility] Comment on above: Performed By: #### S CAN CBC, JANESSA, FE and TIBC #### [address] Microcytosis Marked Normal [facility] Comment on above: Performed By: #### S CAN CBC, JANESSA, FE and TIBC #### [address] Monocytes (Bld) [#/Vol] 0.4 10*3/uL Normal 0.0-0.8 [facility] Comment on above: Performed By: #### S CAN CBC, JANESSA, FE and TIBC #### [address] Monocytes/100 WBC (Bld) 6.3 % Normal . [facility] Comment on above: Performed By: #### S CAN CBC, JANESSA, FE and TIBC #### [address] Neutrophils (Bld) [#/Vol] 3.8 10*3/uL Normal 1.8-7.7 [facility] Comment on above: Performed By: #### S CAN CBC, JANESSA, FE and TIBC #### [address] Neutrophils/100 WBC (Bld) 55.1 % Normal . [facility] Comment on above: Performed By: #### S CAN CBC, JANESSA, FE and TIBC #### [address] NRBC% 0.1 /100{WBC} Normal 0-0.5 [facility] Comment on above: Performed By: #### S CAN CBC, JANESSA, FE and TIBC #### [address] Ovalocytes Slight Normal [facility] Comment on above: Performed By: #### S CAN CBC, JANESSA, FE and TIBC #### [address] Platelet Estimate Normal Normal Normal [facility] Comment on above: Performed By: #### S CAN CBC, JANESSA, FE and TIBC #### [address] Platelet mean volume (Bld) [Entitic vol] 8.7 fL Normal 6.3-10.7 [facility] Comment on above: Performed By: #### S CAN CBC, JANESSA, FE and TIBC #### [address] Platelet Morphology Normal Normal Normal [facility] Comment on above: Result Comment: PERF ORMED BY: [place] [address] PATHOLOGIST TICKET AGENT MELISSA WAGNER M.D. Performed By: #### S CAN CBC, JANESSA, FE and TIBC #### [address] Platelets (Bld) [#/Vol] 218 10*3/uL Normal 150-450 [facility] Comment on above: Performed By: #### S CAN CBC, JANESSA, FE and TIBC #### [address] Poikilocytosis Slight Normal [facility] Comment on above: Performed By: #### S CAN CBC, JANESSA, FE and TIBC #### [address] RBC (Bld) [#/Vol] 4.34 10*6/uL Normal 3.60-5.00 [facility] Comment on above: Performed By: #### S CAN CBC, JANESSA, FE and TIBC #### [address] Schistocytes Slight Normal [facility] Comment on above: Performed By: #### S CAN CBC, JANESSA, FE and TIBC #### [address] WBC (Bld) [#/Vol] 6.9 10*3/uL Normal 3.8-11.6 [facility] Comment on above: Performed By: #### S CAN CBC, JANESSA, FE and TIBC #### [address] AMYLASEon 01-25-2023 Amylase [Catalytic activity/Vol] 64 U/L Normal 25-[address] [facility] Comment on above: Performed By: #### B MP, LIPA, YVETTE, LIVER #### [facility] [address] [place] [address] Dr. Idania Roldan CBC AUTO DIFFon 01-25-2023 BASO # 0.0 103/ul Normal 0.0-0.1 [facility] Comment on above: Performed By: #### B MP, LIPA, YVETTE, LIVER #### [facility] [address] [place] [address] Dr. Idania Roldan Basophils/100 WBC (Bld) 0.3 % Normal 0.2-2.0 [facility] Comment on above: Performed By: #### B MP, LIPA, YVETTE, LIVER #### [facility] [address] [place] [address] Dr. Idania Roldan EO # 0.1 103/ul Normal 0.0-0.7 [facility] Comment on above: Performed By: #### B MP, LIPA, YVETTE, LIVER #### [facility] [address] [place] [address] Dr. Idaina Roldan Eosinophils/100 WBC (Bld) 1.0 % Normal 0.9-7.0 [facility] Comment on above: Performed By: #### B MP, LIPA, YVETTE, LIVER #### [facility] [address] [place] [address] Dr. Idania Roldan Erythrocyte distribution width (RBC) [Ratio] 17.2 % Critically high 11.0-15.0 [facility] Comment on above: Performed By: #### B MP, LIPA, YVETTE, LIVER #### [facility] [address] [place] [address] Dr. Idania Roldan Hematocrit (Bld) [Volume fraction] 33.9 % Critically low 36.0-48.0 [facility] Comment on above: Performed By: #### B MP, LIPA, YVETTE, LIVER #### [facility] [address] [place] [address] Dr. Idania Roldan Hemoglobin (Bld) [Mass/Vol] 10.1 g/dL Critically low 12.0-16.0 [facility] Comment on above: Performed By: #### B MP, LIPA, YVETTE, LIVER #### [facility] [address] [place] [address] Dr. Idania Roldan IG # 0.01 10e3/ul Normal 0.00-0.03 [facility] Comment on above: Performed By: #### B MP, LIPA, YVETTE, LIVER #### [facility] [address] [place] [address] Dr. Idania Roldan IG % 0.2 % Normal 0.0-0.5 [facility] Comment on above: Performed By: #### B MP, LIPA, YVETTE, LIVER #### [facility] [address] [place] [address] Dr. Idania Roldan LYMPH # 1.7 103/ul Normal 1.2-3.[address] [facility] Comment on above: Performed By: #### B MP, LIPA, YVETTE, LIVER #### [facility] [address] [place] [address] Dr. Idania Roldan Lymphocytes/100 WBC (Bld) 27.9 % Normal 20.5-60.0 [facility] Comment on above: Performed By: #### B MP, LIPA, YVETTE, LIVER #### [facility] [address] [place] [address] Dr. Idania Roldan MANUAL DIFF REQ NO Normal [facility] Comment on above: Performed By: #### B MP, LIPA, YVETTE, LIVER #### [facility] [address] [place] [address] Dr. Idania Roldan MCH (RBC) [Entitic mass] 20.7 pg Critically low 26.7-34.[address] [facility] Comment on above: Performed By: #### B MP, LIPA, YVETTE, LIVER #### [facility] [address] [place] [address] Dr. Idania Roldan MCHC (RBC) [Mass/Vol] 29.8 g/dL Critically low 29.9-35.[address] [facility] Comment on above: Performed By: #### B MP, LIPA, YVETTE, LIVER #### [facility] [address] [place] [address] Dr. Idania Roldan MCV (RBC) [Entitic vol] 69.6 fL Critically low 81.0-99.[address] [facility] Comment on above: Performed By: #### B MP, LIPA, YVETTE, LIVER #### [facility] [address] [place] [address] Dr. Idania Roldan MONO # 0.4 103/ul Normal 0.3-0.[address] [facility] Comment on above: Performed By: #### B MP, LIPA, YVETTE, LIVER #### [facility] [address] [place] [address] Dr. Idania Roldan Monocytes/100 WBC (Bld) 7.1 % Normal 1.7-12.[address] [facility] Comment on above: Performed By: #### B MP, LIPA, YVETTE, LIVER #### [facility] [address] [place] [address] Dr. Idania Roldan NEUT # 3.8 103/ul Normal 1.4-6.[address] [facility] Comment on above: Performed By: #### B MP, LIPA, YVETTE, LIVER #### [facility] [address] [place] [address] Dr. Idania Roldan Neutrophils/100 WBC (Bld) 63.5 % Normal 43.0-75.[address] [facility] Comment on above: Performed By: #### B MP, LIPA, YVETTE, LIVER #### [facility] [address] [place] [address] Dr. Idania Roldan Platelet mean volume (Bld) [Entitic vol] 9.3 fL Critically low 9.5-13.[address] [facility] Comment on above: Performed By: #### B MP, LIPA, YVETTE, LIVER #### [facility] [address] [place] [address] Dr. Idania Roldan PLT 294 103/ul Normal 150-[address] [facility] Comment on above: Performed By: #### B MP, LIPA, YVETTE, LIVER #### [facility] [address], [place] [address] Dr. Idania Roldan RBC 4.87 106/ul Normal 4.20-5.40 [facility] Comment on above: Performed By: #### B MP, LIPA, YVETTE, LIVER #### [facility] [address] [place], [place] [address] Dr. Idania Roldan WBC 6.0 103/ul Normal 4.0-11.0 [facility] Comment on above: Performed By: #### B MP, LIPA, YVETTE, LIVER #### [facility] [address] [place], [place] [address] ABD/PELVIS WO CONon [...] VEDA BOND Date: 2023-01-25 12:20 Normal [facility] ER URINE PROFILEon 3 Bilirubin Ql (U) SMALL Abnormal NEGATIVE [facility] Comment on above: Performed By: #### B MP, LIPA, YVETTE, LIVER #### [facility] [address] [address] [address] Idania Roldan Clarity (U) CLEAR Normal CLEAR [facility] Comment on above: Performed By: #### B MP, LIPA, YVETTE, LIVER #### [facility] [address] [address] [address] Idania Roldan Color (U) DK. YELLOW Normal YELLOW [facility] Comment on above: Performed By: #### B MP, LIPA, YVETTE, LIVER #### [facility] [address] [place] [address] Dr. Idania Roldan ERUAHD A micrscopic examina tion will be performed if indicated. Normal [facility] Comment on above: Performed By: #### B MP, LIPA, YVETTE, LIVER #### [facility] [address] [place] [address] Dr. Idania Roldan Glucose Ql (U) Negative Normal NEGATIVE The [facility] Comment on above: Performed By: #### B MP, LIPA, YVETTE, LIVER #### [facility] [address] [place] [address] Dr. Idania Roldan Hemoglobin Ql (U) LARGE Abnormal NEGATIVE [facility] Comment on above: Performed By: #### B MP, LIPA, YVETTE, LIVER #### [facility] [address] [place] [address] Dr. Idania Roldan Ketones Ql (U) TRACE Abnormal NEGATIVE The [place] [facility] Comment on above: Performed By: #### B MP, LIPA, YVETTE, LIVER #### [facility] [address] [place] [address] Dr. Idania Roldan LEUKOCYTES Negative Normal NEGATIVE [facility] Comment on above: Performed By: #### B MP, LIPA, YVETTE, LIVER #### [facility] [address] [place] [address] Dr. Idania Roldan Nitrite Ql (U) Negative Normal NEGATIVE The [place] [facility] Comment on above: Performed By: #### B MP, LIPA, YVETTE, LIVER #### [facility] [address] [place] [address] Dr. Idania Roldan pH (U) 5.0 [pH] Normal 5-9 [facility] Comment on above: Performed By: #### B MP, LIPA, YVETTE, LIVER #### [facility] [address] [place] [address] Dr. Idania Roldan SPEC GRAVITY >=1.030 Abnormal 1.005-<=1.02 5 [facility] Comment on above: Performed By: #### B MP, LIPA, YVETTE, LIVER #### [facility] [address] [place] [address] Dr. Idania Roldan UA PROTEIN TRACE Normal NEGATIVE/ TRACE [facility] Comment on above: Performed By: #### B MP, LIPA, YVETTE, LIVER #### [facility] [address] [place] [address] Dr. Idania Roldan UR MICRO IND INDICATED Normal [facility] Comment on above: Performed By: #### B MP, LIPA, YVETTE, LIVER #### [facility] [address] [place] [address] Dr. Idania Roldan Urobilinogen Qn (U) 0.2 {Bryan'U}/dL Normal 0.2 - 1. 0 [facility] Comment on above: Performed By: #### B MP, LIPA, YVETTE, LIVER #### [facility] [address] [place] [address] Dr. Idania Roldan LIPASEon 01-25-2023 Lipase [Catalytic activity/Vol] 226.0 U/L Normal 73.0-393.0 [facility] Comment on above: Performed By: #### B MP, LIPA, YVETTE, LIVER #### [facility] [address] [place] [address] Dr. Idania Roldan LIVER PROFILEon 01-25-2023 Albumin [Mass/Vol] 4.1 g/dL Normal 3.4-5.0 [facility] Comment on above: Performed By: #### B MP, LIPA, YVETTE, LIVER #### [facility] [address] [place] [address] Dr. Idania Roldan Albumin/Globulin [Mass ratio] 0.9 {ratio} Normal [facility] Comment on above: Performed By: #### B MP, LIPA, YVETTE, LIVER #### [facility] [address] [place] [address] Dr. Idania Roldan ALP [Catalytic activity/Vol] 110 U/L Normal 46-116 [facility] Comment on above: Performed By: #### B MP, LIPA, YVETTE, LIVER #### [facility] [address] [place] [address] Dr. Idania Roldan ALT [Catalytic activity/Vol] 20 U/L Normal 14-59 [facility] Comment on above: Performed By: #### B MP, LIPA, YVETTE, LIVER #### [facility] [address] [place] [address] Dr. Idania Roldan AST [Catalytic activity/Vol] 11 U/L Critically low 15-37 [facility] Comment on above: Performed By: #### B MP, LIPA, YVETTE, LIVER #### [facility] [address] [place] [address] Dr. Idania Roldan BILI, CONJUGATED 0.1 mg/dL Normal 0.0-0.2 [facility] Comment on above: Performed By: #### B MP, LIPA, YVETTE, LIVER #### [facility] [address] [place] [address] Dr. Idania Roldan Bilirubin [Mass/Vol] 0.3 mg/dL Normal 0.2-1.0 [facility] Comment on above: Performed By: #### B MP, LIPA, YVETTE, LIVER #### [facility] [address] [place] [address] Dr. Idania Roldan Globulin (S) [Mass/Vol] 4.4 g/dL Normal [facility] Comment on above: Performed By: #### B MP, LIPA, YVETTE, LIVER #### [facility] [address] [place] [address] Dr. Idania Roldan Protein [Mass/Vol] 8.5 g/dL Critically high 6.4-8.2 [facility] Comment on above: Performed By: #### B MP, LIPA, YVETTE, LIVER #### [facility] [address] [place] [address] Dr. Idania Roldan PROF CHEM 8 (BAS METB)on Anion gap [Moles/Vol] 13.5 mmol/L Normal [facility] Comment on above: Performed By: #### B MP, LIPA, YVETTE, LIVER #### [facility] [address] [place] [address] Dr. Idania Roldan Calcium [Mass/Vol] 9.3 mg/dL Normal 8.5-10.1 [facility] Comment on above: Performed By: #### B MP, LIPA, YVETTE, LIVER #### [facility] [address] [place] [address] Dr. Idania Roldan Chloride [Moles/Vol] 105 mmol/L Normal 98-107 [facility] Comment on above: Performed By: #### B MP, LIPA, YVETTE, LIVER #### [facility] [address] [place] [address] Dr. Idania Roldan CO2 [Moles/Vol] 27.2 mmol/L Normal 21.0-32.0 [facility] Comment on above: Performed By: #### B MP, LIPA, YVETTE, LIVER #### [facility] [address] [place] [address] Dr. Idania Roldan Creatinine [Mass/Vol] 0.74 mg/dL Normal 0.55-1.02 [facility] Comment on above: Performed By: #### B MP, LIPA, YVETTE, LIVER #### [facility] [address] [place] [address] Dr. Idania Roldan EGFR-AF PALESTINIAN >60 Normal >=60 [facility] Comment on above: Performed By: #### B MP, LIPA, YVETTE, LIVER #### [facility] [address] [place] [address] Dr. Idania Roldan EGFR-NON AF PALESTINIAN >60 Normal >=60 [facility] Comment on above: Performed By: #### B MP, LIPA, YVETTE, LIVER #### [facility] [address] [place] [address] Dr. Idania Roldan Glucose [Mass/Vol] 97 mg/dL Normal 74-106 [facility] Comment on above: Performed By: #### B MP, LIPA, YVETTE, LIVER #### [facility] [address] [place] [address] Dr. Idania Roldan Potassium [Moles/Vol] 3.7 mmol/L Normal 3.5-5.1 [facility] Comment on above: Performed By: #### B MP, LIPA, YVETTE, LIVER #### [facility] [address] [place] [address] Dr. Idania Roldan Sodium [Moles/Vol] 142 mmol/L Normal 136-145 [facility] Comment on above: Performed By: #### B MP, LIPA, YVETTE, LIVER #### [facility] [address] [place] [address] Dr. Idania Roldan Urea nitrogen [Mass/Vol] 13.0 mg/dL Normal 7.0-18.0 [facility] Comment on above: Performed By: #### B MP, LIPA, YVETTE, LIVER #### [facility] [address] [place] [address] Dr. Idania Roldan Urea nitrogen/Creatinine [Mass ratio] 17.6 mg/mg Normal [facility] Comment on above: Performed By: #### B MP, LIPA, YVETTE, LIVER #### [facility] [address] [place] [address] Dr. Idania Roldan URINE MICROSCOPIC ONLYon BACTERIA NONE SEEN Normal NONE SEEN [facility] Comment on above: Performed By: #### B MP, LIPA, YVETTE, LIVER #### [facility] [address] [place] [address] Dr. Idania Roldan Bacteria identified Cx Nom (U) NOT INDICATED Normal [facility] Comment on above: Performed By: #### B MP, LIPA, YVETTE, LIVER #### [facility] [address] [place] [address] Dr. Idania Roldan CAST NONE SEEN Normal NONE SEEN [facility] Comment on above: Performed By: #### B MP, LIPA, YVETTE, LIVER #### [facility] [address] [address] [address] Idania Roldan Crystals LM Nom (Urine sed) NONE SEEN Normal NONE SEEN [facility] Comment on above: Performed By: #### B MP, LIPA, YVETTE, LIVER #### [facility] [address] [place] [address] Dr. Idania Roldan Epithelial cells LM Ql (Urine sed) FEW Abnormal NONE SEEN /RARE [facility] Comment on above: Performed By: #### B MP, LIPA, YVETTE, LIVER #### [facility] [address] [place] [address] Dr. Idania Roldan MUCOUS NONE SEEN Normal NONE SEEN [facility] Comment on above: Performed By: #### B MP, LIPA, YVETTE, LIVER #### [facility] [address] [place] [address] Dr. Idania Roldan RBC (U) [#/Vol] /uL Abnormal 0-2 [facility] Comment on above: Performed By: #### B MP, LIPA, VYETTE, LIVER #### [facility] [address] [place] [address] Dr. Idania Roldan WBC NONE SEEN Normal NONE SEEN [facility] Comment on above: Performed By: #### B MP, LIPA, YVETTE, LIVER #### [facility] [address] [place] [address] Dr. Idania Roldan XR KUB 1 VIEWon [...] DENILSON AUSTIN Date: 2023-01-24 19:51 Normal [facility] AMYLASEon 01-21-2023 Amylase [Catalytic activity/Vol] 64 U/L Normal 25-[address] [facility] Comment on above: Performed By: #### P T, PTT #### [facility] [address] [place] [address] Dr. Idania Roldan CBC AUTO DIFFon 01-21-2023 BASO # 0.0 103/ul Normal 0.0-0.[address] [facility] Comment on above: Performed By: #### B MP, LIPA, YVETTE, LIVER #### [facility] [address] [place] [address] Dr. Idania Roldan Basophils/100 WBC (Bld) 0.2 % Normal 0.2-2.[address] [facility] Comment on above: Performed By: #### B MP, LIPA, YVETTE, LIVER #### [facility] [address] [place] [address] Dr. Idania Roldan EO # 0.1 103/ul Normal 0.0-0.[address] [facility] Comment on above: Performed By: #### B MP, LIPA, YVETTE, LIVER #### [facility] [address] [place] [address] Dr. Idania Roldan Eosinophils/100 WBC (Bld) 0.9 % Normal 0.9-7.[address] [facility] Comment on above: Performed By: #### B MP, LIPA, YVETTE, LIVER #### [facility] [address] [place] [address] Dr. Idania Roldan Erythrocyte distribution width (RBC) [Ratio] 17.2 % Critically high 11.0-15.[address] [facility] Comment on above: Performed By: #### B MP, LIPA, YVETTE, LIVER #### [facility] [address] [place] [address] Dr. Idania Roldan Hematocrit (Bld) [Volume fraction] 32.5 % Critically low 36.0-48.0 [facility] Comment on above: Performed By: #### B MP, LIPA, YVETTE, LIVER #### [facility] [address] [place] [address] Dr. Idania Roldan Hemoglobin (Bld) [Mass/Vol] 9.5 g/dL Critically low 12.0-16.0 [facility] Comment on above: Performed By: #### B MP, LIPA, YVETTE, LIVER #### [facility] [address] [place] [address] Dr. Idania Roldan IG # 0.01 10e3/ul Normal 0.00-0.03 [facility] Comment on above: Performed By: #### B MP, LIPA, YVETTE, LIVER #### [facility] [address] [place] [address] Dr. Idania Roldan IG % 0.2 % Normal 0.0-0.5 [facility] Comment on above: Performed By: #### B MP, LIPA, YVETTE, LIVER #### [facility] [address] [place] [address] Dr. Idania Roldan LYMPH # 2.0 103/ul Normal 1.2-3.8 [facility] Comment on above: Performed By: #### B MP, LIPA, YVETTE, LIVER #### [facility] [address] [place] [address] Dr. Idania Roldan Lymphocytes/100 WBC (Bld) 34.7 % Normal 20.5-60.0 [facility] Comment on above: Performed By: #### B MP, LIPA, YVETTE, LIVER #### [facility] [address] [place] [address] Dr. Idania Roldan MANUAL DIFF REQ NO Normal [facility] Comment on above: Performed By: #### B MP, LIPA, YVETTE, LIVER #### [facility] [address] [place] [address] Dr. Idania Roldan MCH (RBC) [Entitic mass] 20.5 pg Critically low 26.7-34.0 [facility] Comment on above: Performed By: #### B MP, LIPA, YVETTE, LIVER #### [facility] [address] [place] [address] Dr. Idania Roldan MCHC (RBC) [Mass/Vol] 29.2 g/dL Critically low 29.9-35.2 [facility] Comment on above: Performed By: #### B MP, LIPA, YVETTE, LIVER #### [facility] [address] [place] [address] Dr. Idania Roldan MCV (RBC) [Entitic vol] 70.2 fL Critically low 81.0-99.0 [facility] Comment on above: Performed By: #### B MP, LIPA, YVETTE, LIVER #### [facility] [address] [place] [address] Dr. Idania Roldan MONO # 0.5 103/ul Normal 0.3-0.[address] [facility] Comment on above: Performed By: #### B MP, LIPA, YVETTE, LIVER #### [facility] [address] [place] [address] Dr. Idania Roldan Monocytes/100 WBC (Bld) 8.7 % Normal 1.7-12.0 [facility] Comment on above: Performed By: #### B MP, LIPA, YVETTE, LIVER #### [facility] [address] [place] [address] Dr. Idania Roldan NEUT # 3.2 103/ul Normal 1.4-6.5 [facility] Comment on above: Performed By: #### B MP, LIPA, YVETTE, LIVER #### [facility] [address] [place] [address] Dr. Idania Roldan Neutrophils/100 WBC (Bld) 55.3 % Normal 43.0-75.0 [facility] Comment on above: Performed By: #### B MP, LIPA, YVETTE, LIVER #### [facility] [address] [place] [address] Dr. Idania Roldan Platelet mean volume (Bld) [Entitic vol] 9.7 fL Normal 9.5-13.[address] [facility] Comment on above: Performed By: #### B MP, LIPA, YVETTE, LIVER #### [facility] [address] [place] [address] Dr. Idania Roldan PLT 310 103/ul Normal 150-[address] [facility] Comment on above: Performed By: #### B MP, LIPA, YVETTE, LIVER #### [facility] [address] [place] [address] Dr. Idania Roldan RBC 4.63 106/ul Normal 4.20-5.40 [facility] Comment on above: Performed By: #### B MP, LIPA, YVETTE, LIVER #### [facility] [address] [place] [address] Dr. Idania Roldan WBC 5.8 103/ul Normal 4.0-11.0 [facility] Comment on above: Performed By: #### B MP, LIPA, YVETTE, LIVER #### [facility] [address] [place] [address] Dr. Idania Roldan CULTURE URINEon 01-21-2023 CULTURE URINE Culture Observations : MODERATE GROWTH OF MIXED GENITAL ALE. NO POTENTIAL PATHOGENS SEEN. Normal [facility] Comment on above: Performed By: #### P T, PTT #### [facility] [address] [place] [address] Dr. Idania Roldan LIPASEon 01-21-2023 Lipase [Catalytic activity/Vol] 251.0 U/L Normal 73.0-393.0 [facility] Comment on above: Performed By: #### P T, PTT #### [facility] [address] [place] [address] Dr. Idania Roldan PROF 14(COMP METB)on 023 Albumin [Mass/Vol] 3.8 g/dL Normal 3.4-5.0 [facility] Comment on above: Performed By: #### P T, PTT #### [facility] [address] [place] [address] Dr. Idania Roldan Albumin/Globulin [Mass ratio] 1.0 {ratio} Normal [facility] Comment on above: Performed By: #### P T, PTT #### [facility] [address] [place] [address] Dr. Idania Roldan ALP [Catalytic activity/Vol] 107 U/L Normal 46-116 [facility] Comment on above: Performed By: #### P T, PTT #### [facility] [address] [place] [address] Dr. Idania Roldan ALT [Catalytic activity/Vol] 17 U/L Normal 14-59 [facility] Comment on above: Performed By: #### P T, PTT #### [facility] [address] [address] [address] Idania Roldan Anion gap [Moles/Vol] 13.3 mmol/L Normal [facility] Comment on above: Performed By: #### P T, PTT #### [facility] [address] [address] [address] Idania Roldan AST [Catalytic activity/Vol] 9 U/L Critically low 15-37 [facility] Comment on above: Performed By: #### P T, PTT #### [facility] [address] [address] [address] Idania Roldan Bilirubin [Mass/Vol] 0.3 mg/dL Normal 0.2-1.0 [facility] Comment on above: Performed By: #### P T, PTT #### [facility] [address] [place] [address] Dr. Idania Roldan Calcium [Mass/Vol] 9.0 mg/dL Normal 8.5-10.1 [facility] Comment on above: Performed By: #### P T, PTT #### [facility] [address] [address] [address] Idania Roldan Chloride [Moles/Vol] 103 mmol/L Normal 98-107 [facility] Comment on above: Performed By: #### P T, PTT #### [facility] [address] [place] [address] Dr. Idania Roldan CO2 [Moles/Vol] 28.2 mmol/L Normal 21.0-32.0 [facility] Comment on above: Performed By: #### P T, PTT #### [facility] [address] [address] [address] Idania Roldan Creatinine [Mass/Vol] 0.81 mg/dL Normal 0.55-1.02 [facility] Comment on above: Performed By: #### P T, PTT #### [facility] [address] [place] [address] Dr. Idania Roldan EGFR-AF PALESTINIAN >60 Normal >=60 [facility] Comment on above: Performed By: #### P T, PTT #### [facility] [address] [address] [address] Idania Roldan EGFR-NON AF PALESTINIAN >60 Normal >=60 [facility] Comment on above: Performed By: #### P T, PTT #### [facility] [address] [address] [address] Idania Roldan Globulin (S) [Mass/Vol] 3.9 g/dL Normal [facility] Comment on above: Performed By: #### P T, PTT #### [facility] [address] [address] [address] Idania Roldan Glucose [Mass/Vol] 93 mg/dL Normal 74-106 [facility] Comment on above: Performed By: #### P T, PTT #### [facility] [address] [place] [address] Dr. Idania Roldan Potassium [Moles/Vol] 3.5 mmol/L Normal 3.5-5.1 [facility] Comment on above: Performed By: #### P T, PTT #### [facility] [address] [place] [address] Dr. Idania Roldan Protein [Mass/Vol] 7.7 g/dL Normal 6.4-8.2 [facility] Comment on above: Performed By: #### P T, PTT #### [facility] [address] [place] [address] Dr. Idania Roldan Sodium [Moles/Vol] 141 mmol/L Normal 136-145 [facility] Comment on above: Performed By: #### P T, PTT #### [facility] [address] [place] [address] Dr. Idania Roldan Urea nitrogen [Mass/Vol] 11.0 mg/dL Normal 7.0-18.0 [facility] Comment on above: Performed By: #### P T, PTT #### [facility] [address] [place] [address] Dr. Idania Roldan Urea nitrogen/Creatinine [Mass ratio] 13.6 mg/mg Normal [facility] Comment on above: Performed By: #### P T, PTT #### [facility] [address] [place] [address] Dr. Idania Roldan UA RANDOM W/MICROSCOPICon BACTERIA SMALL Abnormal NONE SEEN [facility] Comment on above: Performed By: #### B MP, LIPA, YVETTE, LIVER #### [facility] [address] [place] [address] Dr. Idania Roldan Bilirubin Ql (U) SMALL Abnormal NEGATIVE [facility] Comment on above: Performed By: #### B MP, LIPA, YVETTE, LIVER #### [facility] [address] [place] [address] Dr. Idania Roldan CAST NONE SEEN Normal NONE SEEN The [facility] Comment on above: Performed By: #### B MP, LIPA, YVETTE, LIVER #### [facility] [address] [place] [address] Dr. Idania Roldan Clarity (U) CLEAR Normal CLEAR [facility] Comment on above: Performed By: #### B MP, LIPA, YVETTE, LIVER #### [facility] [address] [place] [address] Dr. Idania Roldan Color (U) DK. YELLOW Normal YELLOW [facility] Comment on above: Performed By: #### B MP, LIPA, YVETTE, LIVER #### [facility] [address] [place] [address] Dr. Idania Roldan Crystals LM Nom (Urine sed) NONE SEEN Normal NONE SEEN The [facility] Comment on above: Performed By: #### B MP, LIPA, YVETTE, LIVER #### [facility] [address] [place] [address] Dr. Idania Roldan Epithelial cells LM Ql (Urine sed) FEW Abnormal NONE SEEN /RARE The [facility] Comment on above: Performed By: #### B MP, LIPA, YVETTE, LIVER #### [facility] [address] [place] [address] Dr. Idania Roldan Glucose Ql (U) Negative Normal NEGATIVE The [facility] Comment on above: Performed By: #### B MP, LIPA, YVETTE, LIVER #### [facility] [address] [place], [place] [id number] Dr. Idania Roldan Hemoglobin Ql (U) LARGE Abnormal NEGATIVE The [facility] Comment on above: Performed By: #### B MP, LIPA, YVETTE, LIVER #### [facility] [address] [place] [address] Dr. Idania Roldan Ketones Ql (U) TRACE Abnormal NEGATIVE [facility] Comment on above: Performed By: #### B MP, LIPA, YVETTE, LIVER #### [facility] [address] [place] [address] Dr. Idania Roldan LEUKOCYTES Negative Normal NEGATIVE The [facility] Comment on above: Performed By: #### B MP, LIPA, YVETTE, LIVER #### [facility] [address] [place] [address] Dr. Idania Roldan MUCOUS MODERATE Abnormal NONE SEEN The [facility] Comment on above: Performed By: #### B MP, LIPA, YVETTE, LIVER #### [facility] [address] [place] [address] Dr. Idania Roldan Nitrite Ql (U) Negative Normal NEGATIVE [facility] Comment on above: Performed By: #### B MP, LIPA, YVETTE, LIVER #### [facility] [address] [place] [address] Dr. Idania Roldan pH (U) 5.0 [pH] Normal 5-[address] [facility] Comment on above: Performed By: #### B MP, LIPA, YVETTE, LIVER #### [facility] [address] [place] [address] Dr. Idania Roldan RBC (U) [#/Vol] /uL Abnormal 0-2 [facility] Comment on above: Performed By: #### B MP, LIPA, YVETTE, LIVER #### [facility] [address] [place] [address] Dr. Idania Roldan SPEC GRAVITY >=1.030 Abnormal 1.005-<=1.02 5 [facility] Comment on above: Performed By: #### B MP, LIPA, YVETTE, LIVER #### [facility] [address] [place] [address] Dr. Idania Roldan UA PROTEIN TRACE Normal NEGATIVE/ TRACE The [facility] Comment on above: Performed By: #### B MP, LIPA, YVETTE, LIVER #### [facility] [address] [address] [address] Idania Roldan Urobilinogen Qn (U) 0.2 {Bryan'U}/dL Normal 0.2 - 1. [address] [facility] Comment on above: Performed By: #### B MP, LIPA, YVETTE, LIVER #### [facility] [address] [address] [address] Idania Roldan WBC 0-2 Abnormal NONE SEEN The [facility] Comment on above: Performed By: #### B MP, LIPA, YVETTE, LIVER #### [facility] [address] [address] [address] Idania Roldan Covid-19 PCR ([facility])on 09-11 SARS-CoV-2 (COVID-19) RNA MAMIE+probe Ql (Unsp spec) Detected Critically abnormal NOT DETECTED The [facility] Comment on above: Result Comment: This test is not yet approved or cleared by the [place] FDA. When there are no FDA-approved or cleared tests available, and other criteria are met, FDA can make tests available under an emergency access mechanism called an Emergency Use Authorization (EUA). The EUA for this test is supported by the Transfer of Health and Human Service's (HHS's) declaration [...] used). Performed By: #### C VDTBH #### [facility] [address] [place] [address] Dr. Idania Roldan INFLUENZA A AND B AGon 10-06 INFLUANEGH SEE BELOW Normal The [facility] Comment on above: Result Comment: Nega tive for Flu A protein angiten. Infection due to Flu A cannot be ruled out. Flu A angiten in the sample may be below the detection limit of the test. Performed By: #### P T, PTT #### [facility] [address] [place] [address] Dr. Idania Roldan [facility] SEE BELOW Normal The [facility] Comment on above: Result Comment: Nega tive for Flu B protein antigen. Infection due to Flu B cannot be ruled out. Flu B antigen in the sample may be below the detection limit of the test. Performed By: #### P T, PTT #### [facility] [address] [place] [address] Dr. Idania Roldan INFLUENZA A AG Negative Normal NEGATIVE SEE COMMENT [facility] Comment on above: Performed By: #### P T, PTT #### [facility] [address] [place] [address] Dr. Idania Roldan INFLUENZA B AG Negative Normal NEGATIVE SEE COMMENT [facility] Comment on above: Performed By: #### P T, PTT #### [facility] [address] [place] [address] Dr. Idania Roldan INTERNAL CONTROLS Within Normal Limits Normal Wi thin Normal Limits [facility] Comment on above: Performed By: #### P T, PTT #### [facility] [address] [place] [address] Dr. Idania Roldan AMYLASEon 09-30-2022 Amylase [Catalytic activity/Vol] 62 U/L Normal 25-115 [facility] Comment on above: Performed By: #### B MP, LIPA, YVETTE, LIVER #### [facility] [address] [place] [address] Dr. Idania Roldan CBC AUTO DIFFon 09-30-2022 BASO # 0.0 103/ul Normal 0.0-0.1 [facility] Comment on above: Performed By: #### C BC #### [facility] [address] [place] [address] Dr. Idania Roldan Basophils/100 WBC (Bld) 0.3 % Normal 0.2-2.0 [facility] Comment on above: Performed By: #### C BC #### [facility] [address] [place] [address] Dr. Idania Roldan EO # 0.1 103/ul Normal 0.0-0.7 [facility] Comment on above: Performed By: #### C BC #### [facility] [address] [place] [address] Dr. Idania Roldan Eosinophils/100 WBC (Bld) 1.2 % Normal 0.9-7.0 [facility] Comment on above: Performed By: #### C BC #### [facility] [address] [place] [address] Dr. Idania Roldan Erythrocyte distribution width (RBC) [Ratio] 14.8 % Normal 11.0-15.0 [facility] Comment on above: Performed By: #### C BC #### [facility] [address] [place] [address] Dr. Idania Roldan Hematocrit (Bld) [Volume fraction] 31.8 % Critically low 36.0-48.0 [facility] Comment on above: Performed By: #### C BC #### [facility] [address] [place] [address] Dr. Idania Roldan Hemoglobin (Bld) [Mass/Vol] 9.6 g/dL Critically low 12.0-16.0 [facility] Comment on above: Performed By: #### C BC #### [facility] [address] [place] [address] Dr. Idania Roldan IG # 0.01 10e3/ul Normal 0.00-0.03 [facility] Comment on above: Performed By: #### C BC #### [facility] [address] [place] [address] Dr. Idania Roldan IG % 0.1 % Normal 0.0-0.5 [facility] Comment on above: Performed By: #### C BC #### [facility] [address] [place] [address] Dr. Idania Roldan LYMPH # 3.3 103/ul Normal 1.2-3.8 [facility] Comment on above: Performed By: #### C BC #### [facility] [address] [place] [address] Dr. Idania Roldan Lymphocytes/100 WBC (Bld) 45.4 % Normal 20.5-60.0 [facility] Comment on above: Performed By: #### C BC #### [facility] [address] [place] [address] Dr. Idania Roldan MANUAL DIFF REQ NO Normal [facility] Comment on above: Performed By: #### C BC #### [facility] [address] [place] [address] Dr. Idania Roldan MCH (RBC) [Entitic mass] 22.7 pg Critically low 26.7-34.0 [facility] Comment on above: Performed By: #### C BC #### [facility] [address] [place] [address] Dr. Idania Roldan MCHC (RBC) [Mass/Vol] 30.2 g/dL Normal 29.9-35.2 [facility] Comment on above: Performed By: #### C BC #### [facility] [address] [place] [address] Dr. Idania Roldan MCV (RBC) [Entitic vol] 75.4 fL Critically low 81.0-99.0 [facility] Comment on above: Performed By: #### C BC #### [facility] [address] [place] [address] Dr. Idania Roldan MONO # 0.5 103/ul Normal 0.3-0.8 [facility] Comment on above: Performed By: #### C BC #### [facility] [address] [place] [address] Dr. Idania Roldan Monocytes/100 WBC (Bld) 6.2 % Normal 1.7-12.0 [facility] Comment on above: Performed By: #### C BC #### [facility] [address] [place] [address] Dr. Idania Roldan NEUT # 3.4 103/ul Normal 1.4-6.5 [facility] Comment on above: Performed By: #### C BC #### [facility] [address] [place] [address] Dr. Idania Roldan Neutrophils/100 WBC (Bld) 46.8 % Normal 43.0-75.0 [facility] Comment on above: Performed By: #### C BC #### [facility] [address] [place] [address] Dr. Idania Roldan Platelet mean volume (Bld) [Entitic vol] 8.5 fL Critically low 9.5-13.5 [facility] Comment on above: Performed By: #### C BC #### [facility] [address] [place] [address] Dr. Idania Roldan PLT 273 103/ul Normal 150-450 [facility] Comment on above: Performed By: #### C BC #### [facility] [address] [place] [address] Dr. Idania Roldan RBC 4.22 106/ul Normal 4.20-5.40 [facility] Comment on above: Performed By: #### C BC #### [facility] [address] [place] [address] Dr. Idania Roldan WBC 7.2 103/ul Normal 4.0-11.0 [facility] Comment on above: Performed By: #### C BC #### [facility] [address] [place] [address] Dr. Idania Roldan CULTURE URINEon 09-30-2022 CULTURE URINE Culture Observations : MODERATE GROWTH OF MIXED GENITAL ALE. NO POTENTIAL PATHOGENS SEEN. Normal [facility] Comment on above: Performed By: #### P T, PTT #### [facility] [address] [place] [address] Dr. Idania Roldan LIPASEon 09-30-2022 Lipase [Catalytic activity/Vol] 256.0 U/L Normal 73.0-393.0 [facility] Comment on above: Performed By: #### B MP, LIPA, YVETTE, LIVER #### [facility] [address] [place] [address] Dr. Idania Roldan PROF 14(COMP METB)on 022 Albumin [Mass/Vol] 4.1 g/dL Normal 3.4-5.0 [facility] Comment on above: Performed By: #### B MP, LIPA, YVETTE, LIVER #### [facility] [address] [address] [address] Idania Roldan Albumin/Globulin [Mass ratio] 1.0 {ratio} Normal [facility] Comment on above: Performed By: #### B MP, LIPA, YVETTE, LIVER #### [facility] [address] [address] [address] Idania Roldan ALP [Catalytic activity/Vol] 93 U/L Normal 46-116 [facility] Comment on above: Performed By: #### B MP, LIPA, YVETTE, LIVER #### [facility] [address] [place] [address] Dr. Idania Roldan ALT [Catalytic activity/Vol] 13 U/L Critically low 14-59 [facility] Comment on above: Performed By: #### B MP, LIPA, YVETTE, LIVER #### [facility] [address] [place] [address] Dr. Idania Roldan Anion gap [Moles/Vol] 9.8 mmol/L Normal [facility] Comment on above: Performed By: #### B MP, LIPA, YVETTE, LIVER #### [facility] [address] [place] [address] Dr. Idania Roldan AST [Catalytic activity/Vol] 12 U/L Critically low 15-37 [facility] Comment on above: Performed By: #### B MP, LIPA, YVETTE, LIVER #### [facility] [address] [place] [address] Dr. Idania Roldan Bilirubin [Mass/Vol] 0.2 mg/dL Normal 0.2-1.0 [facility] Comment on above: Performed By: #### B MP, LIPA, YVETTE, LIVER #### [facility] [address] [place] [address] Dr. Idania Roldan Calcium [Mass/Vol] 9.2 mg/dL Normal 8.5-10.1 [facility] Comment on above: Performed By: #### B MP, LIPA, YVETTE, LIVER #### [facility] [address] [place] [address] Dr. Idania Roldan Chloride [Moles/Vol] 101 mmol/L Normal 98-107 [facility] Comment on above: Performed By: #### B MP, LIPA, YVETTE, LIVER #### [facility] [address] [place] [address] Dr. Idania Roldan CO2 [Moles/Vol] 31.8 mmol/L Normal 21.0-32.0 [facility] Comment on above: Performed By: #### B MP, LIPA, YVETTE, LIVER #### [facility] [address] [place] [address] Dr. Idania Roldan Creatinine [Mass/Vol] 0.71 mg/dL Normal 0.55-1.02 [facility] Comment on above: Performed By: #### B MP, LIPA, YVETTE, LIVER #### [facility] [address] [place] [address] Dr. Idania Roldan EGFR-AF PALESTINIAN >60 Normal >=60 [facility] Comment on above: Performed By: #### B MP, LIPA, YVETTE, LIVER #### [facility] [address] [place] [address] Dr. Idania Roldan EGFR-NON AF PALESTINIAN >60 Normal >=60 [facility] Comment on above: Performed By: #### B MP, LIPA, YVETTE, LIVER #### [facility] [address] [place] [address] Dr. Idania Roldan Globulin (S) [Mass/Vol] 4.0 g/dL Normal [facility] Comment on above: Performed By: #### B MP, LIPA, YVETTE, LIVER #### [facility] [address] [place] [address] Dr. Idania Roldan Glucose [Mass/Vol] 92 mg/dL Normal 74-106 [facility] Comment on above: Performed By: #### B MP, LIPA, YVETTE, LIVER #### [facility] [address] [place] [address] Dr. Idania Roldan Potassium [Moles/Vol] 3.6 mmol/L Normal 3.5-5.1 [facility] Comment on above: Performed By: #### B MP, LIPA, YVETTE, LIVER #### [facility] [address] [place] [address] Dr. Idania Roldan Protein [Mass/Vol] 8.1 g/dL Normal 6.4-8.2 [facility] Comment on above: Performed By: #### B MP, LIPA, YVETTE, LIVER #### [facility] [address] [place] [address] Dr. Idania Roldan Sodium [Moles/Vol] 139 mmol/L Normal 136-145 [facility] Comment on above: Performed By: #### B MP, LIPA, YVETTE, LIVER #### [facility] [address] [place] [address] Dr. Idania Roldan Urea nitrogen [Mass/Vol] 15.0 mg/dL Normal 7.0-18.0 [facility] Comment on above: Performed By: #### B MP, LIPA, YVETTE, LIVER #### [facility] [address] [place] [address] Dr. Idania Roldan Urea nitrogen/Creatinine [Mass ratio] 21.1 mg/mg Normal [facility] Comment on above: Performed By: #### B MP, LIPA, YVETTE, LIVER #### [facility] [address] [place] [address] Dr. Idania Roldan UA RANDOM W/MICROSCOPICon BACTERIA SMALL Abnormal NONE SEEN The [facility] Comment on above: Performed By: #### B MP, LIPA, YVETTE, LIVER #### [facility] [address] [place] [address] Dr. Idania Roldan Bilirubin Ql (U) Negative Normal NEGATIVE [facility] Comment on above: Performed By: #### B MP, LIPA, YVETTE, LIVER #### [facility] [address] [place] [address] Dr. Idania Roldan CAST NONE SEEN Normal NONE SEEN [facility] Comment on above: Performed By: #### B MP, LIPA, YVETTE, LIVER #### [facility] [address] [place] [address] Dr. Idania Roldan Clarity (U) CLEAR Normal CLEAR [facility] Comment on above: Performed By: #### B MP, LIPA, YVETTE, LIVER #### [facility] [address] [address] [address] Idania Roldan Color (U) YELLOW Normal YELLOW [facility] Comment on above: Performed By: #### B MP, LIPA, YVETTE, LIVER #### [facility] [address] [address] [address] Idania Roldan Crystals LM Nom (Urine sed) NONE SEEN Normal NONE SEEN The [facility] Comment on above: Performed By: #### B MP, LIPA, YVETTE, LIVER #### [facility] [address] [address] [address] Idania Roldan Epithelial cells LM Ql (Urine sed) FEW Abnormal NONE SEEN /RARE [facility] Comment on above: Performed By: #### B MP, LIPA, YVETTE, LIVER #### [facility] [address] [place] [address] Dr. Idania Roldan Glucose Ql (U) Negative Normal NEGATIVE [facility] Comment on above: Performed By: #### B MP, LIPA, YVETTE, LIVER #### [facility] [address] [address] [address] Idania Roldan Hemoglobin Ql (U) Negative Normal NEGATIVE [facility] Comment on above: Performed By: #### B MP, LIPA, YVETTE, LIVER #### [facility] [address] [place] [address] Dr. Idania Roldan Ketones Ql (U) Negative Normal NEGATIVE [facility] Comment on above: Performed By: #### B MP, LIPA, YVETTE, LIVER #### [facility] [address] [address] [address] Idania Roldan LEUKOCYTES SMALL Abnormal NEGATIVE The [facility] Comment on above: Performed By: #### B MP, LIPA, YVETTE, LIVER #### [facility] [address] [address] [address] Idania Roldan MUCOUS TRACE Abnormal NONE SEEN [facility] Comment on above: Performed By: #### B MP, LIPA, YVETTE, LIVER #### [facility] [address] [address] [address] Idania Roldan Nitrite Ql (U) Negative Normal NEGATIVE [facility] Comment on above: Performed By: #### B MP, LIPA, YVETTE, LIVER #### [facility] [address] [place] [address] Dr. Idania Roldan pH (U) 7.0 [pH] Normal 5-[address] [facility] Comment on above: Performed By: #### B MP, LIPA, YVETTE, LIVER #### [facility] [address] [place] [address] Dr. Idania Roldan RBC NONE SEEN Abnormal 0-[address] [facility] Comment on above: Performed By: #### B MP, LIPA, YVETTE, LIVER #### [facility] [address] [place] [address] Dr. Idania Roldan SPEC GRAVITY 1.015 Normal 1.005-<=1.02 5 [facility] Comment on above: Performed By: #### B MP, LIPA, YVETTE, LIVER #### [facility] [address] [place] [address] Dr. Idania Roldan UA PROTEIN Negative Normal NEGATIVE/ TRACE [facility] Comment on above: Performed By: #### B MP, LIPA, YVETTE, LIVER #### [facility] [address] [place] [address] Dr. Idania Roldan Urobilinogen Qn (U) 0.2 {Bryan'U}/dL Normal 0.2 - 1. [address] [facility] Comment on above: Performed By: #### B MP, LIPA, YVETTE, LIVER #### [facility] [address] [place] [address] Dr. Idania Roldan WBC 5-10 Abnormal NONE SEEN The [facility] Comment on above: Performed By: #### B MP, LIPA, YVETTE, LIVER #### [facility] [address] [place] [address] Dr. dIania Roldan [facility] SARS-CoV-2 (COVID-19) RNA MAMIE+probe Ql (Unsp spec) Not detected Normal NOT DETECTED [facility] Comment on above: Result Comment: This test is not yet approved or cleared by the [place] FDA. When there are no FDA-approved or cleared tests available, and other criteria are met, FDA can make tests available under an emergency access mechanism called an Emergency Use Authorization (EUA). The EUA for this test is supported by the [place] Examiner of Health and Human Service's (HHS's) declaration [...] SARS-CoV-2. Performed By: #### C VDTB #### [facility] [address] [place] [address] Dr. Idania Roldan INFLUENZA A AND B [facility] 09-21 [facility] SEE BELOW Normal [facility] Comment on above: Result Comment: Nega tive for Flu A protein angiten. Infection due to Flu A cannot be ruled out. Flu A angiten in the sample may be below the detection limit of the test. Performed By: #### B MP, LIPA, YVETTE, LIVER #### [facility] [address] [place] [address] Dr. Idania Roldan [facility] SEE BELOW Normal [facility] Comment on above: Result Comment: Nega tive for Flu B protein antigen. Infection due to Flu B cannot be ruled out. Flu B antigen in the sample may be below the detection limit of the test. Performed By: #### B MP, LIPA, YVETTE, LIVER #### [facility] [address] [place] [address] Dr. Idania Roldan INFLUENZA A AG Negative Normal NEGATIVE SEE COMMENT [facility] Comment on above: Performed By: #### B MP, LIPA, YVETTE, LIVER #### [facility] [address] [place] [address] Dr. Idania Roldan INFLUENZA B AG Negative Normal NEGATIVE SEE COMMENT [facility] Comment on above: Performed By: #### B MP, LIPA, YVETTE, LIVER #### [facility] [address] [address] [address] Idania Roldan INTERNAL CONTROLS Within Normal Limits Normal Wi thin Normal Limits [facility] Comment on above: Performed By: #### B MP, LIPA, YVETTE, LIVER #### [facility] [address] [address] [address] Idania Roldan Covid-19 PCR (CVDTB)on 08-11 SARS-CoV-2 (COVID-19) RNA MAMIE+probe Ql (Unsp spec) Not detected Normal NOT DETECTED [facility] Comment on above: Result Comment: This test is not yet approved or cleared by the [place] FDA. When there are no FDA-approved or cleared tests available, and other criteria are met, FDA can make tests available under an emergency access mechanism called an Emergency Use Authorization (EUA). The EUA for this test is supported by the [place] [place] Examiner of Health and Human Service's (HHS's) declaration [...] #### B MP, LIPA, YVETTE, LIVER #### [facility] [address] [address] [address] Idania Roldan CBC AUTO DIFFon 08-21-2022 BASO # 0.0 103/ul Normal 0.0-0.1 [facility] Comment on above: Performed By: #### P T, PTT #### [facility] [address] [address] [address] Idaina Roldan Basophils/100 WBC (Bld) 0.4 % Normal 0.2-2.0 [facility] Comment on above: Performed By: #### P T, PTT #### [facility] [address] [place] [address] Dr. Idania Roldan EO # 0.1 103/ul Normal 0.0-0.[address] [facility] Comment on above: Performed By: #### P T, PTT #### [facility] [address] [place] [address] Dr. Idania Roldan Eosinophils/100 WBC (Bld) 1.3 % Normal 0.9-7.0 [facility] Comment on above: Performed By: #### P T, PTT #### [facility] [address] [place] [address] Dr. Idania Roldan Erythrocyte distribution width (RBC) [Ratio] 15.3 % Critically high 11.0-15.0 [facility] Comment on above: Performed By: #### P T, PTT #### [facility] [address] [place] [address] Dr. Idania Roldan Hematocrit (Bld) [Volume fraction] 32.1 % Critically low 36.0-48.0 [facility] Comment on above: Performed By: #### P T, PTT #### [facility] [address] [place] [address] Dr. Idania Roldan Hemoglobin (Bld) [Mass/Vol] 9.9 g/dL Critically low 12.0-16.0 [facility] Comment on above: Performed By: #### P T, PTT #### [facility] [address] [place] [address] Dr. Idania Roldan IG # 0.01 10e3/ul Normal 0.00-0.03 [facility] Comment on above: Performed By: #### P T, PTT #### [facility] [address] [place] [address] Dr. Idania Roldan IG % 0.1 % Normal 0.0-0.5 [facility] Comment on above: Performed By: #### P T, PTT #### [facility] [address] [place] [address] Dr. Idania Roldan LYMPH # 2.7 103/ul Normal 1.2-3.8 [facility] Comment on above: Performed By: #### P T, PTT #### [facility] [address] [place] [address] Dr. Idania Roldan Lymphocytes/100 WBC (Bld) 35.7 % Normal 20.5-60.0 [facility] Comment on above: Performed By: #### P T, PTT #### [facility] [address] [place] [address] Dr. Idania Roldan MANUAL DIFF REQ NO Normal [facility] Comment on above: Performed By: #### P T, PTT #### [facility] [address] [place] [address] Dr. Idania Roldan MCH (RBC) [Entitic mass] 24.8 pg Critically low 26.7-34.0 [facility] Comment on above: Performed By: #### P T, PTT #### [facility] [address] [place] [address] Dr. Idania Roldan MCHC (RBC) [Mass/Vol] 30.8 g/dL Normal 29.9-35.2 [facility] Comment on above: Performed By: #### P T, PTT #### [facility] [address] [place] [address] Dr. Idania Roldan MCV (RBC) [Entitic vol] 80.5 fL Critically low 81.0-99.0 [facility] Comment on above: Performed By: #### P T, PTT #### [facility] [address] [place] [address] Dr. Idania Roldan MONO # 0.5 103/ul Normal 0.3-0.8 [facility] Comment on above: Performed By: #### P T, PTT #### [facility] [address] [place] [address] Dr. Idania Roldan Monocytes/100 WBC (Bld) 6.1 % Normal 1.7-12.0 [facility] Comment on above: Performed By: #### P T, PTT #### [facility] [address] [place] [address] Dr. Idania Roldan NEUT # 4.2 103/ul Normal 1.4-6.5 [facility] Comment on above: Performed By: #### P T, PTT #### [facility] [address] [place] [address] Dr. Idania Roldan Neutrophils/100 WBC (Bld) 56.4 % Normal 43.0-75.0 [facility] Comment on above: Performed By: #### P T, PTT #### [facility] [address] [place] [address] Dr. Idania Roldan Platelet mean volume (Bld) [Entitic vol] 9.4 fL Critically low 9.5-13.5 [facility] Comment on above: Performed By: #### P T, PTT #### [facility] [address] [place] [address] Dr. Idania Roldan PLT 296 103/ul Normal 150-450 [facility] Comment on above: Performed By: #### P T, PTT #### [facility] [address] [place] [address] Dr. Idania Roldan RBC 3.99 106/ul Critically low 4.20-5.40 [facility] Comment on above: Performed By: #### P T, PTT #### [facility] [address] [place] [address] Dr. Idania Roldan WBC 7.5 103/ul Normal 4.0-11.0 [facility] Comment on above: Performed By: #### P T, PTT #### [facility] [address] [place] [address] ABD/PELV W CONon [...] RUSSELL DUFF Date: 2022-08-21 12:35 Normal [facility] ER URINE PROFILEon 2 Bilirubin Ql (U) Unable to perform te sting due to color interference. Abnormal NEGATIVE [facility] Comment on above: Performed By: #### B MP, LIPA, YVETTE, LIVER #### [facility] [address] [place] [address] Dr. Idania Roldan Clarity (U) TURBID Abnormal CLEAR [facility] Comment on above: Performed By: #### B MP, LIPA, YVETTE, LIVER #### [facility] [address] [place] [address] Dr. Idania Roldan Color (U) RED Abnormal YELLOW [facility] Comment on above: Performed By: #### B MP, LIPA, YVETTE, LIVER #### [facility] [address] [address] [address] Idania Roldan ERUAHD A micrscopic examina tion will be performed if indicated. Normal [facility] Comment on above: Performed By: #### B MP, LIPA, YVETTE, LIVER #### [facility] [address] [address] [address] Idania Roldan Glucose Ql (U) Unable to perform te sting due to color interference. Abnormal NEGATIVE [facility] Comment on above: Performed By: #### B MP, LIPA, YVETTE, LIVER #### [facility] [address] [place] [address] Dr. Idania Roldan Hemoglobin Ql (U) Unable to perform te sting due to color interference. Abnormal NEGATIVE [facility] Comment on above: Performed By: #### B MP, LIPA, YVETTE, LIVER #### [facility] [address] [place] [address] Dr. Idania Roldan Ketones Ql (U) Unable to perform te sting due to color interference. Abnormal NEGATIVE [facility] Comment on above: Performed By: #### B MP, LIPA, YVETTE, LIVER #### [facility] [address] [place] [address] Dr. Idania Roldan LEUKOCYTES Unable to perform te sting due to color interference. Abnormal NEGATIVE [facility] Comment on above: Performed By: #### B MP, LIPA, YVETTE, LIVER #### [facility] [address] [place] [address] Dr. Idania Roldan Nitrite Ql (U) Unable to perform te sting due to color interference. Abnormal NEGATIVE [facility] Comment on above: Performed By: #### B MP, LIPA, YVETTE, LIVER #### [facility] [address] [place] [address] Dr. Idania Roldan pH Unable to perform te sting due to color interference. Abnormal 5-9 [facility] Comment on above: Performed By: #### B MP, LIPA, YVETTE, LIVER #### [facility] [address] [place] [address] Dr. Idania Roldan SPEC GRAVITY 1.020 Normal 1.005-<=1.02 5 [facility] Comment on above: Performed By: #### B MP, LIPA, YVETTE, LIVER #### [facility] [address] [place] [address] Dr. Idania Roldan UA PROTEIN Unable to perform te sting due to color interference. Normal NEGATIVE/ TRACE [facility] Comment on above: Performed By: #### B MP, LIPA, YVETTE, LIVER #### [facility] [address] [place] [address] Dr. Idania Roldan UR MICRO IND INDICATED Normal [facility] Comment on above: Performed By: #### B MP, LIPA, YVETTE, LIVER #### [facility] [address] [place] [address] Dr. Idania Roldan UROBILINOGEN Unable to perform te sting due to color interference. Normal 0.2 - 1.0 [facility] Comment on above: Performed By: #### B MP, LIPA, YVETTE, LIVER #### [facility] [address] [place] [address] Dr. Idania Roldan PROF 14(COMP METB)on 022 Albumin [Mass/Vol] 4.2 g/dL Normal 3.4-5.0 [facility] Comment on above: Performed By: #### P T, PTT #### [facility] [address] [place] [address] Dr. Idania Roldan Albumin/Globulin [Mass ratio] 1.0 {ratio} Normal [facility] Comment on above: Performed By: #### P T, PTT #### [facility] [address] [place] [address] Dr. Idania Roldan ALP [Catalytic activity/Vol] 91 U/L Normal 46-116 [facility] Comment on above: Performed By: #### P T, PTT #### [facility] [address] [place] [address] Dr. Idania Roldan ALT [Catalytic activity/Vol] 15 U/L Normal 14-59 [facility] Comment on above: Performed By: #### P T, PTT #### [facility] [address] [place] [address] Dr. Idania Roldan Anion gap [Moles/Vol] 9.6 mmol/L Normal [facility] Comment on above: Performed By: #### P T, PTT #### [facility] [address] [place] [address] Dr. Idania Roldan AST [Catalytic activity/Vol] 14 U/L Critically low 15-37 [facility] Comment on above: Performed By: #### P T, PTT #### [facility] [address] [place] [address] Dr. Idania Roldan Bilirubin [Mass/Vol] 0.2 mg/dL Normal 0.2-1.0 [facility] Comment on above: Performed By: #### P T, PTT #### [facility] [address] [place] [address] Dr. Idania Roldan Calcium [Mass/Vol] 9.2 mg/dL Normal 8.5-10.1 [facility] Comment on above: Performed By: #### P T, PTT #### [facility] [address] [place] [address] Dr. Idania Roldan Chloride [Moles/Vol] 103 mmol/L Normal 98-107 [facility] Comment on above: Performed By: #### P T, PTT #### [facility] [address] [place] [address] Dr. Idania Roldan CO2 [Moles/Vol] 31.2 mmol/L Normal 21.0-32.0 [facility] Comment on above: Performed By: #### P T, PTT #### [facility] [address] [place] [address] Dr. Idania Roldan Creatinine [Mass/Vol] 0.76 mg/dL Normal 0.55-1.02 [facility] Comment on above: Performed By: #### P T, PTT #### [facility] [address] [place] [address] Dr. Idania Roldan EGFR-AF PALESTINIAN >60 Normal >=60 [facility] Comment on above: Performed By: #### P T, PTT #### [facility] [address] [place] [address] Dr. Idania Roldan EGFR-NON AF PALESTINIAN >60 Normal >=60 [facility] Comment on above: Performed By: #### P T, PTT #### [facility] [address] [place] [address] Dr. Idania Roldan Globulin (S) [Mass/Vol] 4.2 g/dL Normal [facility] Comment on above: Performed By: #### P T, PTT #### [facility] [address] [place] [address] Dr. Idania Roldan Glucose [Mass/Vol] 107 mg/dL Critically high 74-106 [facility] Comment on above: Performed By: #### P T, PTT #### [facility] [address] [place] [address] Dr. Idania Roldan Potassium [Moles/Vol] 3.8 mmol/L Normal 3.5-5.1 [facility] Comment on above: Performed By: #### P T, PTT #### [facility] [address] [place] [address] Dr. Idania Roldan Protein [Mass/Vol] 8.4 g/dL Critically high 6.4-8.2 [facility] Comment on above: Performed By: #### P T, PTT #### [facility] [address] [place] [address] Dr. Idania Roldan Sodium [Moles/Vol] 140 mmol/L Normal 136-145 [facility] Comment on above: Performed By: #### P T, PTT #### [facility] [address] [place] [address] Dr. Idania Roldan Urea nitrogen [Mass/Vol] 12.0 mg/dL Normal 7.0-18.0 [facility] Comment on above: Performed By: #### P T, PTT #### [facility] [address] [place] [address] Dr. Idania Roldan Urea nitrogen/Creatinine [Mass ratio] 15.8 mg/mg Normal [facility] Comment on above: Performed By: #### P T, PTT #### [facility] [address] [place] [address] Dr. Idania Roldan URINE MICROSCOPIC ONLYon BACTERIA NONE SEEN Normal NONE SEEN [facility] Comment on above: Performed By: #### B MP, LIPA, YVETTE, LIVER #### [facility] [address] [place] [address] Dr. Idania Roldan Bacteria identified Cx Nom (U) NOT INDICATED Normal [facility] Comment on above: Performed By: #### B MP, LIPA, YVETTE, LIVER #### [facility] [address] [place] [address] Dr. Idania Roldan CAST NONE SEEN Normal NONE SEEN [facility] Comment on above: Performed By: #### B MP, LIPA, YVETTE, LIVER #### [facility] [address] [place] [address] Dr. Idania Roldan Crystals LM Nom (Urine sed) NONE SEEN Normal NONE SEEN [facility] Comment on above: Performed By: #### B MP, LIPA, YVETTE, LIVER #### [facility] [address] [place] [address] Dr. Idania Roldan Epithelial cells LM Ql (Urine sed) RARE Normal NONE SEEN /RARE [facility] Comment on above: Performed By: #### B MP, LIPA, YVETTE, LIVER #### [facility] [address] [place] [address] Dr. Idania WRIGHT NONE SEEN Normal NONE SEEN [facility] Comment on above: Performed By: #### B MP, LIPA, YVETTE, LIVER #### [facility] [address] [place] [address] Dr. Idania Roldan RBC (U) [#/Vol] /uL Abnormal 0-2 [facility] Comment on above: Performed By: #### B MP, LIPA, YVETTE, LIVER #### [facility] [address] [place] [address] Dr. Idania Roldan WBC 2-5 Abnormal NONE SEEN [facility] Comment on above: Performed By: #### B MP, LIPA, YVETTE, LIVER #### [facility] [address] [place] [address] Dr. Idania Roldan CBC AUTO DIFFon 08-19-2022 BASO # 0.0 103/ul Normal 0.0-0.1 [facility] Comment on above: Performed By: #### P T, PTT #### [facility] [address] [place] [address] Dr. Idania Roldan Basophils/100 WBC (Bld) 0.4 % Normal 0.2-2.0 [facility] Comment on above: Performed By: #### P T, PTT #### [facility] [address] [place] [address] Dr. Idania Roldan EO # 0.1 103/ul Normal 0.0-0.[address] [facility] Comment on above: Performed By: #### P T, PTT #### [facility] [address] [place] [address] Dr. Idania Roldan Eosinophils/100 WBC (Bld) 2.0 % Normal 0.9-7.0 [facility] Comment on above: Performed By: #### P T, PTT #### [facility] [address] [place] [address] Dr. Idania Roldan Erythrocyte distribution width (RBC) [Ratio] 14.8 % Normal 11.0-15.[address] [facility] Comment on above: Performed By: #### P T, PTT #### [facility] [address] [place] [address] Dr. Idania Roldan Hematocrit (Bld) [Volume fraction] 31.5 % Critically low 36.0-48.0 [facility] Comment on above: Performed By: #### P T, PTT #### [facility] [address] [place] [address] Dr. Idania Roldan Hemoglobin (Bld) [Mass/Vol] 9.5 g/dL Critically low 12.0-16.[address] [facility] Comment on above: Performed By: #### P T, PTT #### [facility] [address] [place] [address] Dr. Idania Roldan IG # 0.01 10e3/ul Normal 0.00-0.[address] [facility] Comment on above: Performed By: #### P T, PTT #### [facility] [address] [place] [address] Dr. Idania Roldan IG % 0.2 % Normal 0.0-0.[address] [facility] Comment on above: Performed By: #### P T, PTT #### [facility] [address] [place] [address] Dr. Idania Roldan LYMPH # 1.4 103/ul Normal 1.2-3.[address] [facility] Comment on above: Performed By: #### P T, PTT #### [facility] [address] [place] [address] Dr. Idania Roldan Lymphocytes/100 WBC (Bld) 29.9 % Normal 20.5-60.[address] [facility] Comment on above: Performed By: #### P T, PTT #### [facility] [address] [place] [address] Dr. Idania Roldan MANUAL DIFF REQ NO Normal [facility] Comment on above: Performed By: #### P T, PTT #### [facility] [address] [place] [address] Dr. Idanai Roldan MCH (RBC) [Entitic mass] 24.4 pg Critically low 26.7-34.[address] [facility] Comment on above: Performed By: #### P T, PTT #### [facility] [address] [place] [address] Dr. Idania Roldan MCHC (RBC) [Mass/Vol] 30.2 g/dL Normal 29.9-35.[address] [facility] Comment on above: Performed By: #### P T, PTT #### [facility] [address] [place] [address] Dr. Idania Roldan MCV (RBC) [Entitic vol] 80.8 fL Critically low 81.0-99.[address] [facility] Comment on above: Performed By: #### P T, PTT #### [facility] [address] [place] [address] Dr. Idania Roldan MONO # 0.2 103/ul Critically low 0.3-0.8 [facility] Comment on above: Performed By: #### P T, PTT #### [facility] [address] [place] [address] Dr. Idania Roldan Monocytes/100 WBC (Bld) 5.2 % Normal 1.7-12.[address] [facility] Comment on above: Performed By: #### P T, PTT #### [facility] Laboratory [address] [place] [address] Dr. Idania Roldan NEUT # 2.9 103/ul Normal 1.4-6.[address] [facility] Comment on above: Performed By: #### P T, PTT #### [facility] Laboratory [address] [address] [address] Idania Roldan Neutrophils/100 WBC (Bld) 62.3 % Normal 43.0-75.0 [facility] Comment on above: Performed By: #### P T, PTT #### [facility] Laboratory [address] [address] [address] Idania Roldan Platelet mean volume (Bld) [Entitic vol] 8.6 fL Critically low 9.5-13.5 [facility] Comment on above: Performed By: #### P T, PTT #### [facility] Laboratory [address] [address] [address] Idania Roldan PLT 269 103/ul Normal 150-450 [facility] Comment on above: Performed By: #### P T, PTT #### [facility] Laboratory [address] [place] [address] Dr. Idania Roldan RBC 3.90 106/ul Critically low 4.20-5.40 [facility] Comment on above: Performed By: #### P T, PTT #### [facility] Laboratory [address] [place] [address] Dr. Idania Roldan WBC 4.6 103/ul Normal 4.0-11.0 [facility] Comment on above: Performed By: #### P T, PTT #### [facility] Laboratory [address] [place] [address] Dr. Idania Roldan PROF CHEM 8 (BAS METB)on Anion gap [Moles/Vol] 9.0 mmol/L Normal [facility] Comment on above: Performed By: #### B MP, LIPA, YVETTE, LIVER #### [facility] Laboratory [address] [place] [address] Dr. Idania Roldan Calcium [Mass/Vol] 9.1 mg/dL Normal 8.5-10.1 [facility] Comment on above: Performed By: #### B MP, LIPA, YVETTE, LIVER #### [facility] Laboratory [address] [place] [address] Dr. Idania Roldan Chloride [Moles/Vol] 104 mmol/L Normal 98-[address] [facility] Comment on above: Performed By: #### B MP, LIPA, YVETTE, LIVER #### [facility] Laboratory [address] [address] [address] Idania Roldan CO2 [Moles/Vol] 31.5 mmol/L Normal 21.0-32.0 [facility] Comment on above: Performed By: #### B MP, LIPA, YVETTE, LIVER #### [facility] Laboratory [address] [address] [address] Idania Roldan Creatinine [Mass/Vol] 0.59 mg/dL Normal 0.55-1.02 [facility] Comment on above: Performed By: #### B MP, LIPA, YVETTE, LIVER #### [facility] Laboratory [address] [address] [address] Idania Roldan EGFR-AF PALESTINIAN >60 Normal >=60 [facility] Comment on above: Performed By: #### B MP, LIPA, YVETTE, LIVER #### [facility] Laboratory [address] [address] [address] Idania Roldan EGFR-NON AF PALESTINIAN >60 Normal >=60 [facility] Comment on above: Performed By: #### B MP, LIPA, YVETTE, LIVER #### [facility] Laboratory [address] [address] [address] Idania Roldan Glucose [Mass/Vol] 90 mg/dL Normal 74-106 [facility] Comment on above: Performed By: #### B MP, LIPA, YVETTE, LIVER #### [facility] Laboratory [address] [address] [address] Idania Roldan Potassium [Moles/Vol] 4.5 mmol/L Normal 3.5-5.1 [facility] Comment on above: Performed By: #### B MP, LIPA, YVETTE, LIVER #### [facility] Laboratory [address] [address] [address] Idania Roldan Sodium [Moles/Vol] 140 mmol/L Normal 136-145 [facility] Comment on above: Performed By: #### B MP, LIPA, YVETTE, LIVER #### [facility] Laboratory [address] [place] [address] Dr. Idania Roldan Urea nitrogen [Mass/Vol] 8.0 mg/dL Normal 7.0-18.[address] [facility] Comment on above: Performed By: #### B MP, LIPA, YVETTE, LIVER #### [facility] Laboratory [address] [place] [address] Dr. Idania Roldan Urea nitrogen/Creatinine [Mass ratio] 13.6 mg/mg Normal [facility] Comment on above: Performed By: #### B MP, LIPA, YVETTE, LIVER #### [facility] Laboratory [address] [place] [address] Dr. Idania Roldan PROTIMEon 08-19-2022 INR Coag (PPP) [Relative time] 0.93 {INR} Normal [facility] Comment on above: Performed By: #### B MP, LIPA, YVETTE, LIVER #### [facility] Laboratory [address] [place] [address] Dr. Idania Roldan INR GUIDELINES SEE BELOW Normal [facility] Comment on above: Result Comment: TARUN RED INR: 2.0 - 3.0 CONDITIONS NOT LISTED BELOW 2.5 - 3.5 FOR PROSTHETIC HEART VALVE REPLACEMENT 2.5 - 3.5 RECURRENT THROMBOSIS Performed By: #### B MP, LIPA, YVETTE, LIVER #### [facility] Laboratory [address] [place] [address] Dr. Idania Roldan PT Coag (PPP) [Time] 10.1 s Normal 9.0-11.[address] [facility] Comment on above: Performed By: #### B MP, LIPA, YVETTE, LIVER #### [facility] Laboratory [address] [place] [address] Dr. Idania Roldan PTTon 08-19-2022 aPTT Coag (Bld) [Time] 28.1 s Normal 22.3-36.[address] [facility] Comment on above: Performed By: #### B MP, LIPA, YVETTE, LIVER #### [facility] Laboratory [address] [place] [address] Dr. Idania Roldan [facility] SARS-CoV-2 (COVID-19) RNA MAMIE+probe Ql (Unsp spec) Not detected Normal NOT DETECTED [facility] Comment on above: Result Comment: This test is not yet approved or cleared by the [place] FDA. When there are no FDA-approved or cleared tests available, and other criteria are met, FDA can make tests available under an emergency access mechanism called an Emergency Use Authorization (EUA). The EUA for this test is supported by the Transfer of Health and Human Service's (HHS's) declaration [...] Performed By: #### P T, PTT #### [facility] Laboratory [address] [place] [address] Dr. Idania Roldan CBC AUTO DIFFon 07-10-2022 BASO # 0.0 103/ul Normal 0.0-0.[address] [facility] Comment on above: Performed By: #### P T, PTT #### [facility] Laboratory [address] [place] [address] Dr. Idania Roldan Basophils/100 WBC (Bld) 0.2 % Normal 0.2-2.[address] [facility] Comment on above: Performed By: #### P T, PTT #### [facility] Laboratory [address] [place] [address] Dr. Idania Roldan EO # 0.1 103/ul Normal 0.0-0.[address] [facility] Comment on above: Performed By: #### P T, PTT #### [facility] Laboratory [address] [place] [address] Dr. Idania Roldan Eosinophils/100 WBC (Bld) 1.3 % Normal 0.9-7.[address] [facility] Comment on above: Performed By: #### P T, PTT #### [facility] Laboratory [address] [place] [address] Dr. Idania Roldan Erythrocyte distribution width (RBC) [Ratio] 16.4 % Critically high 11.0-15.0 [facility] Comment on above: Performed By: #### P T, PTT #### [facility] Laboratory [address] [place] [address] Dr. Idania Roldan Hematocrit (Bld) [Volume fraction] 33.2 % Critically low 36.0-48.0 [facility] Comment on above: Performed By: #### P T, PTT #### [facility] Laboratory [address] [place] [address] Dr. Idania Roldan Hemoglobin (Bld) [Mass/Vol] 10.3 g/dL Critically low 12.0-16.0 [facility] Comment on above: Performed By: #### P T, PTT #### [facility] Laboratory [address] [place] [address] Dr. Idania Roldan IG # 0.01 10e3/ul Normal 0.00-0.03 [facility] Comment on above: Performed By: #### P T, PTT #### [facility] Laboratory [address] [place] [address] Dr. Idania Roldan IG % 0.2 % Normal 0.0-0.5 [facility] Comment on above: Performed By: #### P T, PTT #### [facility] Laboratory [address] [place] [address] Dr. Idania Roldan LYMPH # 1.8 103/ul Normal 1.2-3.[address] [facility] Comment on above: Performed By: #### P T, PTT #### [facility] Laboratory [address] [place] [address] Dr. Idania Roldan Lymphocytes/100 WBC (Bld) 38.8 % Normal 20.5-60.0 [facility] Comment on above: Performed By: #### P T, PTT #### [facility] Laboratory [address] [place] [address] Dr. Idania Roldan MANUAL DIFF REQ NO Normal [facility] Comment on above: Performed By: #### P T, PTT #### [facility] Laboratory [address] [place] [address] Dr. Idania Roldan MCH (RBC) [Entitic mass] 25.9 pg Critically low 26.7-34.0 [facility] Comment on above: Performed By: #### P T, PTT #### [facility] Laboratory [address] [place] [address] Dr. Idania Roldan MCHC (RBC) [Mass/Vol] 31.0 g/dL Normal 29.9-35.2 [facility] Comment on above: Performed By: #### P T, PTT #### [facility] Laboratory [address] [place] [address] Dr. Idania Roldan MCV (RBC) [Entitic vol] 83.4 fL Normal 81.0-99.0 [facility] Comment on above: Performed By: #### P T, PTT #### [facility] Laboratory [address] [place] [address] Dr. Idania Roldna MONO # 0.3 103/ul Normal 0.3-0.8 [facility] Comment on above: Performed By: #### P T, PTT #### [facility] Laboratory [address] [place] [address] Dr. Idania Roldan Monocytes/100 WBC (Bld) 6.1 % Normal 1.7-12.0 [facility] Comment on above: Performed By: #### P T, PTT #### [facility] Laboratory [address] [place] [address] Dr. Idania Roldan NEUT # 2.5 103/ul Normal 1.4-6.[address] [facility] Comment on above: Performed By: #### P T, PTT #### [facility] Laboratory [address] [place] [address] Dr. Idania Roldan Neutrophils/100 WBC (Bld) 53.4 % Normal 43.0-75.[address] [facility] Comment on above: Performed By: #### P T, PTT #### [facility] Laboratory [address] [place] [address] Dr. Idania Roldan Platelet mean volume (Bld) [Entitic vol] 10.1 fL Normal 9.5-13.5 [facility] Comment on above: Performed By: #### P T, PTT #### [facility] Laboratory [address] [place] [address] Dr. Idania Roldan PLT 239 103/ul Normal 150-450 [facility] Comment on above: Performed By: #### P T, PTT #### [facility] Laboratory [address] [place] [address] Dr. Idania Roldan RBC 3.98 106/ul Critically low 4.20-5.40 [facility] Comment on above: Performed By: #### P T, PTT #### [facility] Laboratory [address] [address] [address] Idania Roldan WBC 4.6 103/ul Normal 4.0-11.0 [facility] Comment on above: Performed By: #### P T, PTT #### [facility] Laboratory [address] [place] [address] Dr. Idania Roldan PROF CHEM 8 (BAS METB)on Anion gap [Moles/Vol] 8.4 mmol/L Normal [facility] Comment on above: Performed By: #### B MP #### [facility] Laboratory [address] [place] [address] Dr. Idania Roldan Calcium [Mass/Vol] 9.3 mg/dL Normal 8.5-10.1 [facility] Comment on above: Performed By: #### B MP #### [facility] Laboratory [address] [place] [address] Dr. Idania Roldan Chloride [Moles/Vol] 103 mmol/L Normal 98-107 [facility] Comment on above: Performed By: #### B MP #### [facility] Laboratory [address] [place] [address] Dr. Idania Roldan CO2 [Moles/Vol] 32.9 mmol/L Critically high 21.0-32.0 [facility] Comment on above: Performed By: #### B MP #### [facility] Laboratory [address] [place] [address] Dr. Idania Roldan Creatinine [Mass/Vol] 0.70 mg/dL Normal 0.55-1.02 [facility] Comment on above: Performed By: #### B MP #### [facility] Laboratory [address] [address] [address] Idania Roldan EGFR-AF PALESTINIAN >60 Normal >=60 [facility] Comment on above: Performed By: #### B MP #### [facility] Laboratory [address] [address] [address] Idania Roldan EGFR-NON AF PALESTINIAN >60 Normal >=60 [facility] Comment on above: Performed By: #### B MP #### [facility] Laboratory [address] [address] [address] Idania Roldan Glucose [Mass/Vol] 73 mg/dL Critically low 74-106 [facility] Comment on above: Performed By: #### B MP #### [facility] Laboratory [address] [place] [address] Dr. Idania Roldan Potassium [Moles/Vol] 4.3 mmol/L Normal 3.5-5.1 [facility] Comment on above: Performed By: #### B MP #### [facility] Laboratory [address] [address] [address] Idania Roldan Sodium [Moles/Vol] 140 mmol/L Normal 136-145 [facility] Comment on above: Performed By: #### B MP #### [facility] Laboratory [address] [place] [address] Dr. Idania Roldan Urea nitrogen [Mass/Vol] 16.0 mg/dL Normal 7.0-18.0 [facility] Comment on above: Performed By: #### B MP #### [facility] Laboratory [address] [place] [address] Dr. Idania Roldan Urea nitrogen/Creatinine [Mass ratio] 22.9 mg/mg Normal [facility] Comment on above: Performed By: #### B MP #### [facility] Laboratory [address] [address] [address] Idania Roldan PROTIMEon 07-10-2022 INR Coag (PPP) [Relative time] 1.00 {INR} Normal [facility] Comment on above: Performed By: #### P T, PTT #### [facility] Laboratory [address] [address] [address] Idania Roldan INR GUIDELINES SEE BELOW Normal [facility] Comment on above: Result Comment: TARUN RED INR: 2.0 - 3.0 CONDITIONS NOT LISTED BELOW 2.5 - 3.5 FOR PROSTHETIC HEART VALVE REPLACEMENT 2.5 - 3.5 RECURRENT THROMBOSIS Performed By: #### P T, PTT #### [facility] Laboratory [address] [address] [address] Idania Roldan PT Coag (PPP) [Time] 10.8 s Normal 9.0-11.6 [facility] Comment on above: Performed By: #### P T, PTT #### [facility] Laboratory [address] [place] [address] Dr. Idania Roldan PTTon 07-10-2022 aPTT Coag (Bld) [Time] 29.3 s Normal 22.3-36.2 [facility] Comment on above: Performed By: #### P T, PTT #### [facility] Laboratory [address] [place] [address] Dr. Idania Roldan Operative Reporton 2 Operative Report MR#: [id number] I [facility] Pt. Name: Elvi Moore Room #: [id number] Discharge 06/01/2022 Date: Birthdate: 1980 OPERATIVE REPORT DATE OF SURGERY: 06/01/2022 SURGEON: Kevin Lane M.D. BANQUET BARTENDER: Duy Cavazos ANESTHESIA: General anesthesia. ESTIMATED BLOOD [...] arthrotomy was closed with soft #2 interrupted [id number] suture. The remainder of the incision closed in layered fashion. Sterile dressing applied. At the conclusion of the case, all sponge and needle counts correct. I was present for the critical portions of this case. Electronically Signed by: Kevin Lane M.D. 06/09/2022 07:[address] M.D. Date Dict: 06/03/2022/07:15 A/Kevin Lane M.D. Date Trans: 06/03/2022 08:09 A/taylor [id number] cc: Yasir Acharya M.D. [address], [facility] [address] Normal [facility] *ANAEROBIC CULTUREon 022 *ANAEROBIC CULTURE Clinical Report: (D) Specimen/Source: FLUID/INTRAOP SPEC Collected: 06/01/2022 14:08 Status: Final Last Updated: 06/06/2022 06:35 (1) 1. LEFT KNEE JOINT FLUID CULT RES (Final) No Anaerobes Isolated 5 Days Normal [facility] Comment on above: Order Comment: 1. LE FT KNEE JOINT FLUID Performed By: #### 3 0312 ####[place] [address] [address] *ANAEROBIC CULTURE Clinical Report: (D) Specimen/Source: TISSUE/INTRAOP SPEC Collected: 06/01/2022 14:08 Status: Final Last Updated: 06/06/2022 06:35 (1) 2. LEFT KNEE MEDIAL SYNOVIUM CULT RES (Final) No Anaerobes Isolated 5 Days Normal [facility] Comment on above: Order Comment: 2. LE FT KNEE MEDIAL SYNOVIUM Performed By: #### 6 1405 #### [facility] [address] *ANAEROBIC CULTURE Clinical Report: (D) Specimen/Source: TISSUE/INTRAOP SPEC Collected: 06/01/2022 14:08 Status: Final Last Updated: 06/06/2022 06:35 (1) 3. LEFT KNEE LATERAL SYNOVIUM CULT RES (Final) No Anaerobes Isolated 5 Days Normal [facility] Comment on above: Order Comment: 3. LE FT KNEE LATERAL SYNOVIUM Performed By: #### 6 1405 #### [facility] [address] *BODY FLUID CULTUREon 2021 *BODY FLUID CULTURE Clinical Report: (D) Specimen/Source: FLUID/INTRAOP SPEC Collected: 06/01/2022 14:08 Status: Final Last Updated: 06/06/2022 06:39 (1) 1. LEFT KNEE JOINT FLUID GRAM (Final) Quantity Not Sufficient CULT RES (Final) No Growth Day 5 Normal [facility] Comment on above: Order Comment: 1. LE FT KNEE JOINT FLUID Performed By: #### 3 0318 ####[facility] [address] *TISSUE CULTUREon 06-01-2022 *TISSUE CULTURE Clinical Report: (D) Specimen/Source: TISSUE/INTRAOP SPEC Collected: 06/01/2022 14:08 Status: Final Last Updated: 06/06/2022 06:40 (1) 2. LEFT KNEE MEDIAL SYNOVIUM GRAM (Final) Many Polys No Bacteria Seen CULT RES (Final) No Growth Day 5 Normal [facility] Comment on above: Order Comment: 2. LE FT KNEE MEDIAL SYNOVIUM Performed By: #### 3 0338 ####[facility] [address] *TISSUE CULTURE Clinical Report: (D) Specimen/Source: TISSUE/INTRAOP SPEC Collected: 06/01/2022 14:08 Status: Final Last Updated: 06/06/2022 06:39 (1) 3. LEFT KNEE LATERAL SYNOVIUM GRAM (Final) Many Polys No Bacteria Seen CULT RES (Final) No Growth Day 5 Normal [facility] Comment on above: Order Comment: 3. LE FT KNEE LATERAL SYNOVIUM Performed By: #### 3 0338 ####[facility] [address] POC GLUCOSE LABon 06-01-2022 Glucose [Mass/Vol] 86 mg/dL Normal 70-100 [facility] Comment on above: Performed By: #### 8 [id number] #### [facility] [address] PORTABLE KNEE LEFT 2 VWSon 0 06-01-2022 PORTABLE KNEE LEFT 2 S [facility] Department of Radiology [address] [place] [address] Patient Name: ELVI MOORE : [...] planned Electronically signed: Yvette Andrade. Transcribed by: [email or web address], User Resident: Electronically Signed by: YVETTE ANDRADE @ 06/02/2022 08:53 AM Normal [facility] Comment on above: Order Comment: Hardw are Evaluation, in PACU *MRSA/MSSA DNA NASALon 05-26 *MRSA/MSSA DNA NASAL Clinical Report: (D) Specimen: NASAL SWAB Collected: 05/26/2022 15:23 Status: Final Last Updated: 05/27/2022 13:43 MSSA DNA (Final) Negative MRSA DNA (Final) Negative Normal [facility] Comment on above: Performed By: #### 3 1595 #### [facility] [address] C REACTIVE PROTEINon 022 CRP [Mass/Vol] 1.3 mg/L Normal 0.0-7.0 [facility] Comment on above: Performed By: #### 6 1405 #### [facility] [address] CBC W/DIFFon 05-26-2022 ABS IMM GRANS 0.0 10*3/uL Normal 0.0-0.2 [facility] Comment on above: Performed By: #### 6 1405 #### [facility] [address] ABS NEUTROPHILS 2.5 10*3/uL Normal 1.6-7.6 [facility] Comment on above: Performed By: #### 6 1405 #### [facility] [address] [place] [address], [facility] Basophils (Bld) [#/Vol] 0.0 10*3/uL Normal 0.0-0.2 [facility] Comment on above: Performed By: #### 6 1405 #### [facility] [address] [place] [address], [facility] Basophils/100 WBC (Bld) 0.3 % Normal 0.0-1.0 [facility] Comment on above: Performed By: #### 6 1405 #### [facility] [address] [facility] [place] [address], [facility] Eosinophils (Bld) [#/Vol] 0.1 10*3/uL Normal 0.0-0.5 [facility] Comment on above: Performed By: #### 6 1405 #### [facility] [address] [facility] [place] [address], [facility] Eosinophils/100 WBC (Bld) 1.5 % Normal 0.0-6.0 [facility] Comment on above: Performed By: #### 6 1405 #### [facility] [address] [facility]. [address] Erythrocyte distribution width (RBC) [Ratio] 15.9 % High 11.5-15.0 [facility] Comment on above: Performed By: #### 6 1405 #### [facility] [address] [facility] [place] [address], [facility] Hematocrit (Bld) [Volume fraction] 35.0 % Low 36.0-45.0 [facility] Comment on above: Performed By: #### 6 1405 #### [facility] [address] [facility] [place] [address], [facility] Hemoglobin (Bld) [Mass/Vol] 10.6 g/dL Low 12.0-15.0 [facility] Comment on above: Performed By: #### 6 1405 #### [facility] [address] IMMATURE GRANS 0.2 % Normal 0.0-1.0 [facility] Comment on above: Performed By: #### 6 1405 #### [facility] [address] Lymphocytes (Bld) [#/Vol] 2.8 10*3/uL Normal 1.2-4.0 [facility] Comment on above: Performed By: #### 6 1405 #### [facility] [address] Lymphocytes/100 WBC (Bld) 48.0 % High 20.0-45.0 [facility] Comment on above: Performed By: #### 6 1405 #### [facility] [address] MCH (RBC) [Entitic mass] 24.5 pg Low 27.0-33.0 [facility] [facility] Comment on above: Performed By: #### 6 1405 #### [facility] [address] MCHC (RBC) [Mass/Vol] 30.3 g/dL Low 32.0-35.0 [facility] Comment on above: Performed By: #### 6 1405 #### [facility] [address] MCV (RBC) [Entitic vol] 81.0 fL Low 82.0-98.0 [facility] Comment on above: Performed By: #### 6 1405 #### [facility] [address] [place] [address], [facility] Monocytes (Bld) [#/Vol] 0.4 10*3/uL Normal 0.1-1.0 [facility] Comment on above: Performed By: #### 6 1405 #### [facility] [address] [place] [address], [facility] MONOS 6.8 % Normal 5.0-12.0 [facility] Comment on above: Performed By: #### 6 1405 #### [facility] [address] [place] [address], [facility] Neutrophils/100 WBC (Bld) 43.2 % Normal 40.0-72.0 [facility] Comment on above: Performed By: #### 6 1405 #### [facility] [address] [place] [address], [facility] Nucleated RBC/100 WBC (Bld) [Ratio] 0 % Normal 0-0 [facility] Comment on above: Performed By: #### 6 1405 #### [facility] [address] [facility] [place] [id number], [facility] PLAT CNT 246 10*3/uL Normal 150-400 [facility] Comment on above: Performed By: #### 6 1405 #### [facility] [address] [facility] [place] [address], [facility] RBC (Bld) [#/Vol] 4.32 10*6/uL Normal 3.80-5.00 [facility] Comment on above: Performed By: #### 6 1405 #### [facility] [address] [facility] [place] [address], [facility] WBC (Bld) [#/Vol] 5.87 10*3/uL Normal 4.00-10.60 [facility] Comment on above: Performed By: #### 6 1405 #### [facility] [address] [facility] [place] [address], [facility] HEMOGLOBIN A1Con 05-26-2022 Glucose [Moles/Vol] 100 mmol/L Normal [facility] Comment on above: Performed By: #### 3 1791 #### [facility] [address] [place], [place] [id number] [place] [address] HbA1c (Bld) [Mass fraction] 5.1 % Normal 4.0-6.0 [facility] Comment on above: Performed By: #### 3 1791 #### [facility] [address] [place] [address], [facility] SEDIMENTATION RATEon 022 SED RATE 17 mm/hr Normal 0-20 [facility] Comment on above: Performed By: #### 6 1405 #### [facility] [address] [place] [address], [facility] US KIDNEYS BLADDERon 022 US KIDNEYS BLADDER [...] RUSSELL DUFF Date: 2022-05-02 16:18 [address] [facility] CBC AUTO DIFFon 04-29-2022 BASO # 0.0 103/ul Normal 0.0-0.[address] [facility] Comment on above: Performed By: #### B RHIANNA, JOSE ALBERTO, YVETTE, LIVER #### [facility] Laboratory [address] [place] [address] [address] Idania Roldan Basophils/100 WBC (Bld) 0.3 % Normal 0.2-2.0 [facility] Comment on above: Performed By: #### B MP, LIPA, YVETTE, LIVER #### [facility] Laboratory [address] [place] [address] Dr. Idania Roldan EO # 0.1 103/ul Normal 0.0-0.7 [facility] Comment on above: Performed By: #### B MP, LIPA, YVETTE, LIVER #### [facility] [address] [place] [address] Dr. Idania Roldan Eosinophils/100 WBC (Bld) 0.9 % Normal 0.9-7.[address] [facility] Comment on above: Performed By: #### B MP, LIPA, YVETTE, LIVER #### [facility] [address] [place] [address] Dr. Idania Roldan Erythrocyte distribution width (RBC) [Ratio] 15.4 % Critically high 11.0-15.0 [facility] Comment on above: Performed By: #### B MP, LIPA, YVETTE, LIVER #### [facility] [address] [place] [address] Dr. Idania Roldan Hematocrit (Bld) [Volume fraction] 36.0 % Normal 36.0-48.0 [facility] Comment on above: Performed By: #### B MP, LIPA, YVETTE, LIVER #### [facility] [address] [place] [address] Dr. Idania Roldan Hemoglobin (Bld) [Mass/Vol] 11.2 g/dL Critically low 12.0-16.0 [facility] Comment on above: Performed By: #### B MP, LIPA, YVETTE, LIVER #### [facility] [address] [place] [address] Dr. Idania Roldan IG # 0.02 10e3/ul Normal 0.00-0.[address] [facility] Comment on above: Performed By: #### B MP, LIPA, YVETTE, LIVER #### [facility] [address] [place] [address] Dr. Idania Roldan IG % 0.3 % Normal 0.0-0.[address] [facility] Comment on above: Performed By: #### B MP, LIPA, YVETTE, LIVER #### [facility] [address] [place] [address] Dr. Idania Roldan LYMPH # 2.5 103/ul Normal 1.2-3.[address] [facility] Comment on above: Performed By: #### B MP, LIPA, YVETTE, LIVER #### [facility] [address] [place] [address] Dr. Idania Roldan Lymphocytes/100 WBC (Bld) 36.2 % Normal 20.5-60.0 [facility] Comment on above: Performed By: #### B MP, LIPA, YVETTE, LIVER #### [facility] [address] [place] [address] Dr. Idania Roldan MANUAL DIFF REQ NO Normal [facility] Comment on above: Performed By: #### B MP, LIPA, YVETTE, LIVER #### [facility] [address] [place] [address] Dr. Idania Roldan MCH (RBC) [Entitic mass] 24.9 pg Critically low 26.7-34.0 [facility] Comment on above: Performed By: #### B MP, LIPA, YVETTE, LIVER #### [facility] [address] [place] [address] Dr. Idania Roldan MCHC (RBC) [Mass/Vol] 31.1 g/dL Normal 29.9-35.2 [facility] Comment on above: Performed By: #### B MP, LIPA, YVETTE, LIVER #### [facility] [address] [place] [address] Dr. Idania Roldan MCV (RBC) [Entitic vol] 80.2 fL Critically low 81.0-99.0 [facility] Comment on above: Performed By: #### B MP, LIPA, YVETTE, LIVER #### [facility] [address] [place] [address] Dr. Idania Roldan MONO # 0.5 103/ul Normal 0.3-0.8 [facility] Comment on above: Performed By: #### B MP, LIPA, YVETTE, LIVER #### [facility] [address] [place] [address] Dr. Idania Roldan Monocytes/100 WBC (Bld) 6.7 % Normal 1.7-12.[address] [facility] Comment on above: Performed By: #### B MP, LIPA, YVETTE, LIVER #### [facility] [address] [place] [address] Dr. Idania Roldan NEUT # 3.8 103/ul Normal 1.4-6.[address] [facility] Comment on above: Performed By: #### B MP, LIPA, YVETTE, LIVER #### [facility] [address] [place] [address] Dr. Idania Roldan Neutrophils/100 WBC (Bld) 55.6 % Normal 43.0-75.[address] [facility] Comment on above: Performed By: #### B MP, LIPA, YVETTE, LIVER #### [facility] [address] [place] [address] Dr. Idania Roldan Platelet mean volume (Bld) [Entitic vol] 9.9 fL Normal 9.5-13.[address] [facility] Comment on above: Performed By: #### B MP, LIPA, YVETTE, LIVER #### [facility] [address] [place] [address] Dr. Idania Roldan PLT 265 103/ul Normal 150-[address] [facility] Comment on above: Performed By: #### B MP, LIPA, YVETTE, LIVER #### [facility] [address] [place] [address] Dr. Idania Roldan RBC 4.49 106/ul Normal 4.20-5.[address] [facility] Comment on above: Performed By: #### B MP, LIPA, YVETTE, LIVER #### [facility] [address] [place] [address] Dr. Idania Roldan WBC 6.8 103/ul Normal 4.0-11.[address] [facility] Comment on above: Performed By: #### B MP, LIPA, YVETTE, LIVER #### [facility] [address] [place] [address] Dr. Idania Roldan ER URINE PROFILEon 2 Bilirubin Ql (U) Negative Normal NEGATIVE [facility] [place] [facility] Comment on above: Performed By: #### P T, PTT #### [facility] [address] [place] [address] Dr. Idania Roldan Clarity (U) CLEAR Normal CLEAR [facility] Comment on above: Performed By: #### P T, PTT #### [facility] [address] [place] [address] Dr. Idania Roldan Color (U) LT. YELLOW Normal YELLOW [facility] Comment on above: Performed By: #### P T, PTT #### [facility] [address] [place] [address] Dr. Idania Roldan ERULULI A micrscopic examina tion will be performed if indicated. Normal The [facility] Comment on above: Performed By: #### P T, PTT #### [facility] [address] [place] [address] Dr. Idania Roldan Glucose Ql (U) Negative Normal NEGATIVE [facility] Comment on above: Performed By: #### P T, PTT #### [facility] [address] [place] [address] Dr. Idania Roldan Hemoglobin Ql (U) LARGE Abnormal NEGATIVE [facility] Comment on above: Performed By: #### P T, PTT #### [facility] [address] [place] [address] Dr. Idania Roldan Ketones Ql (U) Negative Normal NEGATIVE [facility] Comment on above: Performed By: #### P T, PTT #### [facility] [address] [place] [address] Dr. Idania Roldan LEUKOCYTES TRACE Abnormal NEGATIVE [facility] Comment on above: Performed By: #### P T, PTT #### [facility] [address] [place] [address] Dr. Idania Roldan Nitrite Ql (U) Negative Normal NEGATIVE [facility] Comment on above: Performed By: #### P T, PTT #### [facility] [address] [place] [address] Dr. Idania Roldan pH (U) 6.0 [pH] Normal 5-[address] [facility] Comment on above: Performed By: #### P T, PTT #### [facility] [address] [place] [address] Dr. Idania Roldan SPEC GRAVITY 1.010 Normal 1.005-<=1.02 5 [facility] Comment on above: Performed By: #### P T, PTT #### [facility] [address] [place] [address] Dr. Idania Roldan UA PROTEIN Negative Normal NEGATIVE/ TRACE [facility] Comment on above: Performed By: #### P T, PTT #### [facility] [address] [place] [address] Dr. Idania Roldan UR MICRO IND INDICATED Normal [facility] Comment on above: Performed By: #### P T, PTT #### [facility] [address] [place] [address] Dr. Idania Roldan Urobilinogen Qn (U) 0.2 {Bryan'U}/dL Normal 0.2 - 1. 0 [facility] Comment on above: Performed By: #### P T, PTT #### [facility] [address] [place] [address] Dr. Idania Roldan PROF CHEM 8 (BAS METB)on Anion gap [Moles/Vol] 10.9 mmol/L Normal [facility] Comment on above: Performed By: #### P T, PTT #### [facility] [address] [place] [address] Dr. Idania Roldan Calcium [Mass/Vol] 8.9 mg/dL Normal 8.5-10.1 [facility] Comment on above: Performed By: #### P T, PTT #### [facility] [address] [place] [address] Dr. Idania Roldan Chloride [Moles/Vol] 104 mmol/L Normal 98-[address] [facility] Comment on above: Performed By: #### P T, PTT #### [facility] [address] [place] [address] Dr. Idania Roldan CO2 [Moles/Vol] 28.9 mmol/L Normal 21.0-32.0 [facility] Comment on above: Performed By: #### P T, PTT #### [facility] [address] [address] [address] Idania Roldan Creatinine [Mass/Vol] 0.71 mg/dL Normal 0.55-1.02 [facility] Comment on above: Performed By: #### P T, PTT #### [facility] [address] [place] [address] [address] Idania Roldan EGFR-AF PALESTINIAN >60 Normal >=60 [facility] [place] [facility] Comment on above: Performed By: #### P T, PTT #### [facility] [address] [address] [address] Idania Roldan EGFR-NON AF PALESTINIAN >60 Normal >=60 [facility] Comment on above: Performed By: #### P T, PTT #### [facility] [address] [place] [address] Dr. Idania Roldan Glucose [Mass/Vol] 88 mg/dL Normal 74-106 [facility] Comment on above: Performed By: #### P T, PTT #### [facility] [address] [place] [address] Dr. Idania Roldan Potassium [Moles/Vol] 3.8 mmol/L Normal 3.5-5.1 [facility] Comment on above: Performed By: #### P T, PTT #### [facility] [address] [place] [address] Dr. Idania Roldan Sodium [Moles/Vol] 140 mmol/L Normal 136-145 [facility] Comment on above: Performed By: #### P T, PTT #### [facility] [address] [place] [address] Dr. Idania Roldan Urea nitrogen [Mass/Vol] 13.0 mg/dL Normal 7.0-18.[address] [facility] Comment on above: Performed By: #### P T, PTT #### [facility] [address] [place] [address] Dr. Idania Roldan Urea nitrogen/Creatinine [Mass ratio] 18.3 mg/mg Normal [facility] Comment on above: Performed By: #### P T, PTT #### [facility] [address] [place] [address] Dr. Idania Roldan URINE MICROSCOPIC ONLYon BACTERIA NONE SEEN Normal NONE SEEN The [facility] Comment on above: Performed By: #### P T, PTT #### [facility] [address] [place] [address] Dr. Idania Roldan Bacteria identified Cx Nom (U) NOT INDICATED Normal [facility] Comment on above: Performed By: #### P T, PTT #### [facility] [address] [place] [address] Dr. Idania Roldan CAST NONE SEEN Normal NONE SEEN [facility] Comment on above: Performed By: #### P T, PTT #### [facility] [address] [place] [address] Dr. Idania Roldan Crystals LM Nom (Urine sed) NONE SEEN Normal NONE SEEN The [facility] Comment on above: Performed By: #### P T, PTT #### [facility] [address] [place] [address] Dr. Idania Roldan Epithelial cells LM Ql (Urine sed) FEW Abnormal NONE SEEN /RARE The [facility] Comment on above: Performed By: #### P T, PTT #### [facility] [address] [place] [address] Dr. Idania Roldan MUCOUS NONE SEEN Normal NONE SEEN The [facility] Comment on above: Performed By: #### P T, PTT #### [facility] [address] [place] [address] Dr. Idania Roldan RBC 50-75 Abnormal 0-[address] [facility] Comment on above: Performed By: #### P T, PTT #### [facility] [address] [place] [address] Dr. Idania Roldan WBC 0-2 Abnormal NONE SEEN The [facility] Comment on above: Performed By: #### P T, PTT #### [facility] [address] [place] [address] Dr. Idania Roldan XR ABD FLAT UP_PA [...] by: RUSSELL DUFF Date: 2022-04-29 13:37 Normal [facility] US KIDNEYS BLADDERon 022 US KIDNEYS BLADDER EXAMINATION: US [facility] BLADDER HISTORY: Kidney stone , left flank [...] RUSSELL DUFF Date: 2022-04-16 18:24 Normal [address] [facility] CT LOWER EXTREMITY WO CONTRA ST LEFTon 04-07-2022 CT LOWER EXTREMITY WO CONTRAST LEFT [facility] Department of Radiology [address] [place] [id number] Patient Name: ELVI MOORE : 1980 Sex: F Age: Race: White Pt. Location: Patient Status: D Ordered Date: 03/24/2022 9:30:00 AM Completed Date: 04/07/2022 05:13 PM Requesting Provider: KEVIN LANE Attending Provider: KEVIN LANE Report Copy To: YASIR ACHARYA Signs & Symptoms: Z96.659 Presence of [...] arthroplasty. Electronically signed: Elvis Perez. Transcribed by: [email or web address], User Resident: Electronically Signed by: ELVIS PEREZ @ 04/12/2022 09:46 AM Normal [facility] Comment on above: Order Comment: , lef t knee C REACTIVE PROTEINon CRP [Mass/Vol] 2.2 mg/L Normal 0.0-7.0 [facility] Comment on above: Performed By: #### 3 1791 #### [facility] [address] SEDIMENTATION RATEon SED RATE 30 mm/hr High 0-20 [facility] Comment on above: Performed By: #### 5 6506 #### [facility] [address] KNEE LEFT 1 OR 2 VWSon 02-12 KNEE LEFT 1 OR 2 VWS [facility] Department of Radiology [address] [place] [id number] Patient Name: ELVI MOORE : 1980 Sex: [...] report. Electronically signed: Sathya Christianson. Transcribed by: [email or web address], User Resident: Electronically Signed by: SATHYA CHRISTIANSON @ 02/13/2022 10:48 PM Normal [facility] Comment on above: Order Comment: KN EE REANNA Operative Reporton Operative Report MR#: [id number] S [facility] Pt. Name: Elvi Moore Room #: 0C Discharge Date: Birthdate: 1980 OPERATIVE REPORT DATE OF SURGERY: 02/12/2022 SURGEON: Kevin Lane M.D. BANQUET BARTENDER: None. PREOPERATIVE DIAGNOSIS: Left total knee arthroplasty [...] A Kevin Lane M.D. Date Dict: 02/12/2022/07:21 Christine/Kevin Lane M.D. Date Trans: 02/12/2022 09:35 A/taylor [id number] cc: Yasir Acharya M.D. [address], [place] [address] Normal [facility] POC GLUCOSE LABon 02-12-2022 Glucose [Mass/Vol] 96 mg/dL Normal 70-100 [facility] Comment on above: Performed By: #### 8 5499 ####[facility] [facility] [place] [address], [facility] C REACTIVE PROTEINon 022 CRP [Mass/Vol] 1.7 mg/L Normal 0.0-7.0 [facility] Comment on above: Performed By: #### 6 1405 #### [facility] [address] [facility] [place] [address], [facility] SEDIMENTATION RATEon 022 SED RATE 18 mm/hr Normal 0-20 [facility] Comment on above: Performed By: #### 6 1405 #### [facility] [address] [facility] [place] [address], [facility] KNEE LEFT 3 VWSon 12-26-2021 KNEE LEFT 3 VWS [facility] Department of Radiology [address] [place] [phone] Patient Name: ELVI MOORE : 1980 Sex: F Age: Race: White Pt. Location: Patient Status: Ordered Date: 12/26/2021 1:45:00 PM Completed Date: 12/26/2021 01:50 PM Requesting Provider: JORDEN BRODY Attending Provider: Report Copy To: Signs & Symptoms: Z47.1 Aftercare following joint replacement surgery I10 History: Tiffany Comments: , , , Ordering Provider - JORDEN BRODY PULMONOLOGIST/INTENSIVIST , Exam: KNEE LEFT 3 S KNEE [...] report. Electronically signed: Yvette Desai. Transcribed by: [email or web address], User Resident: CHRISTELLE ABDI Electronically Signed by: YVETTE DESAI @ 12/26/2021 04:27 PM I personally read this/these film(s) with this resident Normal [facility] Comment on above: Order Comment: , , = ========= , Ordering Provider - JORDEN BRODY CNP , KNEE LEFT 3 Son 12-09-2021 KNEE LEFT 3 S [facility] Department of Radiology [address] [place] [id number] Patient Name: ELVI MOORE : 1980 Sex: F Age: Race: White Pt. Location: Patient Status: D Ordered Date: 12/09/2021 9:30:00 AM Completed Date: 12/09/2021 09:37 AM Requesting Provider: JORDEN BRODY Attending Provider: JORDEN BRODY Report Copy To: Signs & Symptoms: Z47.1 Aftercare following joint replacement surgery I10 History: Rincon Comments: Exam: KNEE LEFT 3 S KNEE LEFT 3 [facility] HISTORY: Knee replacement, follow-up. COMPARISON: 10/30/2021. IMPRESSION: 1. Redemonstrated knee arthroplasty, no hardware complication or acute abnormality. Small to moderate joint effusion. 2. Improving soft tissue changes. Electronically signed: Ezio Roberts. Transcribed by: [email or web address], User Resident: Electronically Signed by: EZIO ROBERTS @ 12/10/2021 08:39 AM Normal [facility] Operative Reporton Operative Report MR#: [id number] S [facility] Pt. Name: Elvi Moore Room #: 0C Discharge Date: Birthdate: 1980 OPERATIVE REPORT DATE OF SURGERY: 10/30/2021 SURGEON: Kevin Lane M.D. BANQUET BARTENDER: 1. MD Waleska. 2. LAVON Quinones. ANESTHESIA: [...] arthrotomy was closed itself with #2 interrupted [id number] suture. The remainder of the incision was closed in a layered fashion. Sterile dressing was applied. At the conclusion of the case, all sponge and needle counts were correct. I was present for the critical portions of this case. Electronically Signed by: Kevin Lane M.D. 10/30/2021 07:[address] M.D. Date Dict: 10/30/2021/11:00 A/Kevin Lane M.D. Date Trans: 10/30/2021 12:34 P/mmo [id number] cc: Yasir Acharya M.D. [address] [facility] [phone] Nasir Thacker DO [address] [facility] [address] Normal [facility] POC GLUCOSE LABon 10-30-2021 Glucose [Mass/Vol] 88 mg/dL Normal 70-100 [facility] Comment on above: Performed By: #### 8 [id number] ####[facility] [address] [address], [facility] PORTABLE KNEE LEFT 2 Son 0 10-30-2021 PORTABLE KNEE LEFT 2 S [facility] Department of Radiology [address] [place] [address] Patient Name: ELVI MOORE : [...] lateral please Exam: PORTABLE KNEE LEFT 2 [facility] PORTABLE KNEE LEFT 2 [facility] 10/30/2021 10:58 AM 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 Transcribed by: [email or web address], User Resident: Electronically Signed by: YVETTE ANDRADE @ 10/30/2021 11:20 AM Normal [facility] Comment on above: Order Comment: Hardw are Evaluation, Postop PACU films for L knee s/p TKA. AP and lateral please *MRSA/MSSA DNA NASALon 10-07 *MRSA/MSSA DNA NASAL Clinical Report: (D) Specimen: NASAL SWAB Collected: 10/07/2021 10:51 Status: Final Last Updated: 10/07/2021 15:44 MSSA DNA (Final) Negative MRSA DNA (Final) Negative Normal [facility] Comment on above: Performed By: #### 3 1595 ####[facility] APTTon 10-07-2021 aPTT Coag (Bld) [Time] 32.2 s Normal 25.0-35.0 [facility] Comment on above: Result Comment: ALL [...] PURPOSE. Performed By: #### 3 1791 #### [facility] [address] [place] [address], [facility] BASIC METABOLIC PANELon 09-11 Calcium [Mass/Vol] 9.2 mg/dL Normal 8.6-10.3 [facility] Comment on above: Performed By: #### 3 1791 #### [facility] [address] [place] [address], [place] Chloride [Moles/Vol] 106 mmol/L Normal 98-107 [facility] Comment on above: Performed By: #### 3 1791 #### [facility] [address] [place] [address], [place] CO2 [Moles/Vol] 28 mmol/L Normal 21-31 [facility] Comment on above: Performed By: #### 3 1791 #### [facility] [address] [place] [address], [place] Creatinine [Mass/Vol] 0.77 mg/dL Normal 0.60-1.20 [facility] Comment on above: Performed By: #### 3 1791 #### [facility] [address] [place] [address], [place] GFR/1.73 sq M.predicted among blacks MDRD (S/P/Bld) [Vol rate/Area] mL/min/{1.73_m2} Normal >60 [facility] Comment on above: Performed By: #### 3 1791 #### [facility] [address] [place] [address], [place] GFR/1.73 sq M.predicted among non-blacks MDRD (S/P/Bld) [Vol rate/Area] mL/min/{1.73_m2} Normal >60 [facility] Comment on above: Performed By: #### 3 1791 #### [facility] [address] [place] [address], [place] Glucose [Mass/Vol] 84 mg/dL Normal 70-100 [facility] Comment on above: Performed By: #### 3 1791 #### [facility] [address] [place] [address], [place] Potassium [Moles/Vol] 4.4 mmol/L Normal 3.5-5.1 [facility] Comment on above: Performed By: #### 3 1791 #### [facility] [address] [place] [address], [place] Sodium [Moles/Vol] 142 mmol/L Normal 136-145 [facility] Comment on above: Performed By: #### 3 179 #### [facility] [address] [place] [address], [place] Urea nitrogen [Mass/Vol] 12 mg/dL Normal 7-25 [facility] Comment on above: Performed By: #### 3 1791 #### [facility] [address] [place] [address], [facility] CBC W/DIFFon 10-07-2021 ABS IMM GRANS 0.0 10*3/uL Normal 0.0-0.2 [facility] Comment on above: Performed By: #### 6 1405 #### [facility] [address] [facility] [place] [address], [facility] ABS NEUTROPHILS 4.7 10*3/uL Normal 1.6-7.6 [facility] Comment on above: Performed By: #### 6 1405 #### [facility] [address] [place] [address], [facility] Basophils (Bld) [#/Vol] 0.0 10*3/uL Normal 0.0-0.2 [facility] Comment on above: Performed By: #### 6 1405 #### [facility] [address] [place] [address], [facility] Basophils/100 WBC (Bld) 0.3 % Normal 0.0-1.0 [facility] Comment on above: Performed By: #### 6 1405 #### [facility] [address] [place] [address], [facility] Eosinophils (Bld) [#/Vol] 0.2 10*3/uL Normal 0.0-0.5 [facility] Comment on above: Performed By: #### 6 1405 #### [facility] [address] [place] [address], [facility] Eosinophils/100 WBC (Bld) 1.9 % Normal 0.0-6.0 [facility] Comment on above: Performed By: #### 6 1405 #### [facility] [address] [place] [address], [facility] Erythrocyte distribution width (RBC) [Ratio] 14.0 % Normal 11.5-15.0 [facility] Comment on above: Performed By: #### 6 1405 #### [facility] [address] Hematocrit (Bld) [Volume fraction] 37.1 % Normal 36.0-45.0 [facility] Comment on above: Performed By: #### 6 1405 #### [facility] [address] [facility]. [address] Hemoglobin (Bld) [Mass/Vol] 11.3 g/dL Low 12.0-15.0 [facility] Comment on above: Performed By: #### 6 1405 #### [facility] [address] IMMATURE GRANS 0.1 % Normal 0.0-1.0 [facility] Comment on above: Performed By: #### 6 1405 #### [facility] [address] Lymphocytes (Bld) [#/Vol] 2.5 10*3/uL Normal 1.2-4.0 [facility] Comment on above: Performed By: #### 6 1405 #### [facility] [address] Lymphocytes/100 WBC (Bld) 31.6 % Normal 20.0-45.0 [facility] Comment on above: Performed By: #### 6 1405 #### [facility] [address] [facility]. [address] MCH (RBC) [Entitic mass] 25.5 pg Low 27.0-33.0 [facility] Comment on above: Performed By: #### 6 1405 #### [facility] [address] [facility] [place] [address], [facility] MCHC (RBC) [Mass/Vol] 30.5 g/dL Low 32.0-35.0 [facility] Comment on above: Performed By: #### 6 1405 #### [facility] [address] MCV (RBC) [Entitic vol] 83.7 fL Normal 82.0-98.0 [facility] Comment on above: Performed By: #### 6 1405 #### [facility] [address] [place] [address], [facility] Monocytes (Bld) [#/Vol] 0.5 10*3/uL Normal 0.1-1.0 [facility] Comment on above: Performed By: #### 6 1405 #### [facility] [address] MONOS 6.0 % Normal 5.0-12.0 [facility] Comment on above: Performed By: #### 6 1405 #### [facility] [address] Neutrophils/100 WBC (Bld) 60.1 % Normal 40.0-72.0 [facility] Comment on above: Performed By: #### 6 1405 #### [facility] [address] Nucleated RBC/100 WBC (Bld) [Ratio] 0 % Normal 0-0 [facility] Comment on above: Performed By: #### 6 1405 #### [facility] [address] [place] [address], [facility] PLAT CNT 233 10*3/uL Normal 150-400 [facility] Comment on above: Performed By: #### 6 1405 #### [facility] [address] RBC (Bld) [#/Vol] 4.43 10*6/uL Normal 3.80-5.00 [facility] Comment on above: Performed By: #### 6 1405 #### [facility] [address] [facility] [address] WBC (Bld) [#/Vol] 7.85 10*3/uL Normal 4.00-10.60 [facility] Comment on above: Performed By: #### 6 1405 #### [facility] [address] [facility] [address] PROTHROMBIN TIMEon 1 INR Coag (PPP) [Relative time] 0.94 {INR} Normal 0.91-1.16 [facility] Comment on above: Result Comment: ACCC [...] 1995;[id number]. Performed By: #### 3 1791 #### [facility] [address] [place] [address], [facility] PT Coag (PPP) [Time] 12.6 s Normal 12.3-14.8 [facility] Comment on above: Result Comment: ALL RESULTS MUST BE INTERPRETED WITH RESPECT TO BLOOD DRAWING ARTIFACT OR DILUTION ERROR OF ANTICOAGULANT AT THE TIME OF SAMPLING. Performed By: #### 3 1791 #### [facility] [address] TYPE AND SCREENon 10-07-2021 ABO INTERPRETATION O Normal [facility] Comment on above: Performed By: #### 3 1791 #### [facility] [address] RH INTERPRETATION Positive Normal [facility] Comment on above: Performed By: #### 3 1791 #### [facility] [address] *MRSA/MSSA DNA NASALon 08-12 *MRSA/MSSA DNA NASAL Clinical Report: (D) Specimen: NASAL SWAB Collected: 08/12/2021 10:14 Status: Final Last Updated: 08/12/2021 18:58 MSSA DNA (Final) Negative MRSA DNA (Final) Negative Normal [facility] Comment on above: Performed By: #### 6 1405 #### [facility] [address] CBC W/DIFFon 08-12-2021 ABS IMM GRANS 0.0 10*3/uL Normal 0.0-0.2 [facility] Comment on above: Performed By: #### 6 1405 #### [facility] [address] ABS NEUTROPHILS 3.7 10*3/uL Normal 1.6-7.6 [facility] Comment on above: Performed By: #### 6 1405 #### [facility] [address] Basophils (Bld) [#/Vol] 0.0 10*3/uL Normal 0.0-0.2 [facility] Comment on above: Performed By: #### 6 1405 #### [facility] [address] Basophils/100 WBC (Bld) 0.3 % Normal 0.0-1.0 [facility] Comment on above: Performed By: #### 6 1405 #### [facility] [address] [facility] [address] Eosinophils (Bld) [#/Vol] 0.2 10*3/uL Normal 0.0-0.5 [facility] Comment on above: Performed By: #### 6 1405 #### [facility] [address] [facility]. [address] Eosinophils/100 WBC (Bld) 2.9 % Normal 0.0-6.0 [facility] Comment on above: Performed By: #### 6 1405 #### [facility] [address] Erythrocyte distribution width (RBC) [Ratio] 14.0 % Normal 11.5-15.0 [facility] Comment on above: Performed By: #### 6 1405 #### [facility] [address] Hematocrit (Bld) [Volume fraction] 37.0 % Normal 36.0-45.0 [facility] Comment on above: Performed By: #### 6 1405 #### [facility] [address] Hemoglobin (Bld) [Mass/Vol] 11.6 g/dL Low 12.0-15.0 [facility] Comment on above: Performed By: #### 6 1405 #### [facility] [address] IMMATURE GRANS 0.3 % Normal 0.0-1.0 [facility] Comment on above: Performed By: #### 6 1405 #### [facility] [address] [place] [address], [facility] Lymphocytes (Bld) [#/Vol] 2.1 10*3/uL Normal 1.2-4.0 [facility] Comment on above: Performed By: #### 6 1405 #### [facility] [address] [facility] [place] [address], [facility] Lymphocytes/100 WBC (Bld) 32.5 % Normal 20.0-45.0 [facility] Comment on above: Performed By: #### 6 1405 #### [facility] [address] [facility] [place] [address], [facility] MCH (RBC) [Entitic mass] 26.8 pg Low 27.0-33.0 [facility] Comment on above: Performed By: #### 6 1405 #### [facility] [address] [facility] [place] [address], [facility] MCHC (RBC) [Mass/Vol] 31.4 g/dL Low 32.0-35.0 [facility] Comment on above: Performed By: #### 6 1405 #### [facility] [address] [facility] [place] [address], [facility] MCV (RBC) [Entitic vol] 85.5 fL Normal 82.0-98.0 [facility] Comment on above: Performed By: #### 6 1405 #### [facility] [address] [place] [address], [facility] Monocytes (Bld) [#/Vol] 0.5 10*3/uL Normal 0.1-1.0 [facility] Comment on above: Performed By: #### 6 1405 #### [facility] [address] [place] [address], [facility] MONOS 6.9 % Normal 5.0-12.0 [facility] Comment on above: Performed By: #### 6 1405 #### [facility] [address] [place] [address], [facility] Neutrophils/100 WBC (Bld) 57.1 % Normal 40.0-72.0 [facility] Comment on above: Performed By: #### 6 1405 #### [facility] [address] [place] [address], [facility] Nucleated RBC/100 WBC (Bld) [Ratio] 0 % Normal 0-0 [facility] Comment on above: Performed By: #### 6 1405 #### [facility] [address] [facility] [place] [address], [facility] PLAT CNT 223 10*3/uL Normal 150-400 [facility] Comment on above: Performed By: #### 6 1405 #### [facility] [address] [place] [address], [facility] RBC (Bld) [#/Vol] 4.33 10*6/uL Normal 3.80-5.00 [facility] Comment on above: Performed By: #### 6 1405 #### [facility] [address] [facility] [place] [address], [facility] WBC (Bld) [#/Vol] 6.55 10*3/uL Normal 4.00-10.60 [facility] Comment on above: Performed By: #### 6 1405 #### [facility] [address] [facility] [place] [address], [facility] HEMOGLOBIN A1Con 08-12-2021 Glucose [Moles/Vol] 103 mmol/L Normal [facility] Comment on above: Performed By: #### 3 1791 #### [facility] [address] [facility] [place] [address], [facility] HbA1c (Bld) [Mass fraction] 5.2 % Normal 4.0-6.0 [facility] Comment on above: Performed By: #### 3 1791 #### [facility] [address] [facility] [place] [address], [facility] KNEE LEFT 3 VWSon 08-12-2021 KNEE LEFT 3 VWS [facility] Department of Radiology [address] [place] [id number] Patient Name: ELVI MOORE : 1980 Sex: F Age: Race: White Pt. Location: 84 Patient Status: O Ordered Date: 08/12/2021 8:40:00 [...] report. Electronically signed: Jah Juarez. Transcribed by: [email or web address], User Resident: JODY KEITH Electronically Signed by: JAH JUAREZ @ 08/12/2021 03:46 PM I personally read this/these film(s) with this resident Normal [facility] Comment on above: Order Comment: [...] _Zhane Tamez MD 12/30/17 16:02 EDT Normal [facility] Otolaryngology Office/Clinic Noteon 11-18-2017 Otolaryngology Office/Clinic [...] _Zhane Tamez MD 11/18/17 16:31 EST Normal [facility] Otolaryngology Office/Clinic Note Patient seen for dispense of bilateral swim plugs. Both plugs display good fit in the ears, and patient confirmed comfort of fit. Proper insertion/removal was practiced successfully. Plan: Return if issues arise regarding swim plugs. N/C, swim plugs paid at last appointment.Electronicall y signed by _ZacharyRima Stroud 11/18/17 16:04 EST Normal [facility] Otolaryngology Office/Clinic Noteon 10-28-2017 Otolaryngology Office/Clinic Note Patient seen for bilateral earmold impressions for swim plugs. Earmold impressions made without incident and otoscopy prior to and following impressions was unremarkable. Patient chose purple, pink, and green swirl color for plugs. Plan: Return in 3 weeks for dispense, prior to follow-up appointment with Dr. Zhane Tamez. $70.Electronically signed by _ZacharyRima Stroud 10/28/17 16:31 EST Normal [facility] Otolaryngology Office/Clinic Note Chief Complaint post-opHistory [...] _Zhane Tamez MD 10/28/17 15:41 EST Normal [facility] Otolaryngology Office/Clinic Noteon 09-16-2017 Otolaryngology Office/Clinic [...] _Zhane Tamez MD 09/16/17 16:06 EST Normal [facility] Otolaryngology Consultationo n 04-20-2017 Otolaryngology Consultation [...] _Zhane Tamez MD 04/20/17 16:51 EDT Normal [facility] Vital Signs Date Time Vital Sign Value Performing Clinician Facility 03-07-2024 16:03-0400 Blood Pressure Location ELIZABETH VACA [facility] 03-07-2024 16:03-0400 Body temperature 97.88 [degF] ELIZABETH VACA [facility] 03-07-2024 16:03-0400 Diastolic blood pressure 80 mm[Hg] ELIZABETH VACA [facility] 03-07-2024 16:03-0400 Heart rate 87 /min ELIZABETH VACA [facility] 03-07-2024 16:03-0400 Respiratory rate 16 /min ELIZABETH VACA [facility] 03-07-2024 16:03-0400 Systolic blood pressure 124 mm[Hg] ELIZABETH VACA [facility] 01-06-2024 18:12-0400 Body height 167.64 cm MD Yasir Acharya Work Phone: [facility] 01-06-2024 18:12-0400 Body mass index (BMI) [Ratio] 25.6 kg/m2 MD Yasir Acharya Work Phone: [facility] 01-06-2024 18:12-0400 Body temperature 98.2 [degF] MD Yasir Acharya Work Phone: [facility] 01-06-2024 18:12-0400 Body weight 72 kg MD Yasir Acharya Work Phone: [facility] 01-06-2024 18:12-0400 Heart rate 93 /min MD Yasir Acharya Work Phone: [facility] 01-06-2024 18:12-0400 Respiratory rate 16 /min MD Yasir Acharya Work Phone: [facility] 01-06-2024 18:12-0400 SaO2% (BldA) [Mass fraction] 99 % MD Yasir Acharya Work Phone: [facility] 09-13-2023 12:04-0500 Blood Pressure Location Diana HAWKINS [facility] 09-13-2023 12:04-0500 Diastolic blood pressure 74 mm[Hg] Diana HAWKINS [facility] 09-13-2023 12:04-0500 Heart rate 64 /min Diana HAWKINS [facility] 09-13-2023 12:04-0500 Respiratory rate 16 /min Diana HAWKINS [facility] 09-13-2023 12:04-0500 Systolic blood pressure 128 mm[Hg] Diana HAWKINS [facility] 05-28-2023 11:12-0400 Body temperature 98 [degF] MD Yasir Acharya Work Phone: [facility] 05-28-2023 11:12-0400 Body weight 70.76 kg MD Yasir Acharya Work Phone: [facility] 05-28-2023 11:12-0400 Diastolic blood pressure 94 mm[Hg] MD Yasir Acharya Work Phone: [facility] 05-28-2023 11:12-0400 Heart rate 88 /min MD Yasir Acharya Work Phone: [facility] 05-28-2023 11:12-0400 Respiratory rate 16 /min MD Yasir Acharya Work Phone: [facility] 05-28-2023 11:12-0400 SaO2% (BldA) [Mass fraction] 98 % MD Yasir Acharya Work Phone: [facility] 05-28-2023 11:12-0400 Systolic blood pressure 131 mm[Hg] MD Yasir Acharya Work Phone: [facility] 05-28-2023 11:00-0400 Body height 167.64 cm MD Yasir Acharya Work Phone: [facility] 06-29-2022 09:25-0400 Blood Pressure Location Diana HAWKINS [facility] 06-29-2022 09:25-0400 Diastolic blood pressure 84 mm[Hg] Diana HAWKINS [facility] 06-29-2022 09:25-0400 Heart rate 84 /min Diana ROSS [facility] 06-29-2022 09:25-0400 Respiratory rate 16 /min Diana ROSS [facility] 06-29-2022 09:25-0400 Systolic blood pressure 115 mm[Hg] Diana HAWKINS [facility] Encounters Encounter Date Encounter Type Care Provider Facility Start: 06-01-2024 End: 06-01-2024 ambulatory KHRIS King [facility] Start: 05-01-2024 End: [facility]: 03-22-[facility]24 End: 03-22-2024 Departed Referred MD Yasir Acharya Work Phone: [facility] Start: 03-22-2024 End: 03-22-2024 ambulatory MD Yasir Acharya Work Phone: [facility] Work Phone: Start: 03-17-2024 ambulatory RUKHSANAANUSHA Taveras [facility] Start: 03-07-2024 End: 03-08-2024 ambulatory ELIZABETH VACA Facility:[facility] Start: 03-07-2024 End: 03-07-2024 Patient encounter procedure ELIZABETH VACA [facility] Start: 03-07-2024 End: 03-07-2024 Emergency department patient visit [facility] Start: 03-06-2024 End: 03-07-2024 Emergency department patient visit YASIR ACHARYA [facility] Start: 02-15-2024 End: 02-16-2024 ambulatory YASIR ACHARYA [facility] Start: 02-08-2024 End: 02-09-2024 ambulatory DINAA HAWKINS [facility] Start: 02-07-2024 ambulatory Diana HAWKINS Facili ty:[facility] Start: 01-06-2024 End: 01-06-2024 ambulatory MD Yasir Acharya Work Phone: [facility] Work Phone: Start: 01-06-2024 End: 01-06-2024 Patient encounter procedure MD Yasir Acharya Work Phone: [facility] Work Phone: Start: 12-24-[address] [facility] Start: 12-10-2023 End: 12-11-2023 Emergency department patient visit NETO VERDUZCO [facility] Start: 11-19-2023 End: 11-20-2023 ambulatory [facility] Start: 11-08-2023 End: 11-09-2023 ambulatory [facility] Start: 10-28-[address] [facility] Start: 10-19-2023 ambulatory Diana Bairdi ty:[facility] Start: 10-14-2023 End: 10-14-2023 Emergency department patient visit YASIR ACHARYA [facility] Start: 10-14-2023 End: 10-15-2023 Emergency department patient visit [facility] Start: 10-13-2023 End: 10-15-2023 Emergency department patient visit [facility] Start: 10-12-2023 End: 10-13-2023 ambulatory Diana HAWKINS Facility:[facility] Start: 10-12-2023 End: 10-12-2023 Patient encounter procedure Diana HAWKINS [facility] Start: 09-20-2023 ambulatory Diana HAWKINS Facility :[facility] Start: 09-16-2023 ambulatory Diana HAWKINS Facili ty:[id number] Start: 09-13-2023 End: 09-14-2023 ambulatory Diana HAWKINS Facility:[facility] [place] Start: 09-13-2023 End: 09-13-2023 Patient encounter procedure Diana HAWKINS [facility] Start: 08-19-2023 ambulatory [facility] Start: 07-20-2023 End: 07-20-2023 ambulatory [facility] Start: 07-20-2023 End: 07-20-2023 ambulatory [facility] Start: 06-28-2023 ambulatory Osiris Calderón Facility:[facility] Start: 05-28-2023 End: 05-28-2023 ambulatory MD Yasir Acharya Work Phone: [facility] Work Phone: Start: 05-28-2023 End: 05-28-2023 Registered Recurring MD Yasir Acharya Work Phone: [facility] Work Phone: Start: 01-25-2023 End: 01-25-2023 ambulatory GENNA HEATON Facility:[facility] Start: 01-21-2023 End: 01-22-[address] YASIR ACHARYA . Facility:[facility] Start: 01-04-2023 End: 01-04-2023 Patient encounter procedure Diana HAWKINS [facility] Start: 10-10-[address] YASIR ACHARYA . Facili ty:[facility] Start: 10-06-2022 End: 10-06-[address] YASIR ACHARYA . Facility:[facility] Start: 09-30-2022 End: 10-01-[address] YASIR ACHARYA . Facility:[facility] Start: 09-21-2022 End: 09-21-[address] YASIR ACHARYA . Facility:[facility] Start: 08-27-2022 Encounter for preprocedural laboratory examination DR DIANA HAWKINS . [facility] Start: 08-27-2022 End: 08-27-[address] [...] procedure Diana HAWKINS [facility] Start: 06-11-[address] Facility :[facility] Start: 06-09-2022 End: 06-11-[address] Facility:[facility] Start: 06-03-2022 End: 06-03-2022 Emergency department patient visit YASIR ACHARYA Facility:[facility] Start: 06-01-2022 End: 06-01-2022 Evaluation and management of inpatient Kevin Lane Facility:[facility] Start: 05-26-2022 End: 05-27-[address] Facility:[facility] Start: 05-26-2022 End: 05-27-2022 Encounter for preprocedural laboratory examination Kevin Lane Facility:[facility] Start: 05-16-2022 ambulatory NICK YOO Facility: Start: 05-01-2022 End: 05-02-2022 ambulatory NICK YOO Facility:[facility] Start: 04-29-2022 End: 04-29-2022 ambulatory ENEDINA IVEY . Facility:[facility] Start: 04-16-2022 End: 04-17-[address] YASIR ACHARYA . Facility: Start: 04-07-2022 End: 04-08-2022 ambulatory Kevin Rameyocing Facility:[facility] Start: 03-24-2022 End: 03-25-2022 ambulatory REFERRED SELF Facility:[facility] Start: 02-12-2022 End: 02-13-2022 ambulatory Kevin Gehling Facility:[facility] Start: 01-09-2022 End: 01-10-2022 ambulatory REFERRED SELF Facility:[facility] Start: 12-26-2021 End: 12-27-2021 ambulatory REFERRED SELF Facility:[facility] Start: 12-09-2021 End: 12-10-2021 ambulatory REFERRED SELF Facility:[facility] Start: 10-30-2021 End: 10-31-2021 ambulatory Kevin Gehling Facility:[facility] Start: 10-11-2021 End: 11-11-2021 ambulatory Kevin Gehling Facility:[facility] Start: 10-07-2021 End: 10-08-2021 ambulatory Kevin Gehling Facility:[facility] Start: 10-06-2021 End: 10-11-2021 ambulatory Kevin Gehling Facility:[facility] Start: 08-12-2021 End: 08-13-2021 ambulatory REFERRED SELF Facility:[facility] Start: 2017 End: 12-31-2017 Ambulatory ZHANE TAMEZ Facility:[facility] Start: 11-18-2017 End: 11-19-2017 Ambulatory ZHANE TAMEZ Facility:[facility] Start: 10-28-2017 End: 10-29-2017 Ambulatory Rima Sparrow Facility:[facility] Start: 10-14-2017 End: 10-15-2017 Ambulatory ZHANE TAMEZ Facility:[facility] Start: 09-16-2017 End: 09-17-2017 Ambulatory ZHANE TAMEZ Facility:[facility] Start: 06-24-2017 Ambulatory ZHANE TAMEZ Facility :[facility] Start: 04-20-2017 End: 04-21-2017 Ambulatory ZHANE TAMEZ Facility:[facility] Procedures Date Procedure Procedure Detail Performing Clinician Start: 01-06-2024 X-ray of left ankle MD Yasir Acharya Work Phone: Start: 10-12-2023 Cystoscopic removal of ureteric stent ELIZABETH VACA Start: 09-16-2023 Cystoscopic laser lithotripsy of ureteric calculus ELIZABETH STEPH Start: 08-27-2022 Cystoscopic removal of ureteric stent Diana HAWKINS Start: 07-23-2022 Cystoscopic insertio n of ureteric stent Diana HAWKINS Start: 10-07-[address] Comment on above: Performed By: #### 3 [id number] #### [address] Appendectomy Daina HAWKINS Arthroplasty of knee Diana HAWKINS Arthroscopy of knee Diana HAWKINS Bypass of stomach Diana FLORENTINO GRIMES Cholecystectomy Diana AGUIRRE JENNY Hysterectomy Diana HAWKINS Implantation of temp orary spinal cord stimulator Diana HAWKINS Tonsillectomy Diana HAWKINS Plan of Treatment Date Care Activity Detail Author Start: 05-28-2023 [facility] Iron binding capacit y [Mass/volume] in Serum or Plasma [facility] Iron saturation [Mas s Fraction] in Serum or Plasma [facility] Immunizations Immunization Date Immunization Notes Care Provider Wicho mckeon 07-29-2022 influenza virus vacc ine, unspecified formulation ELIZABETHLEA AVCA [facility] 07-29-2022 SARS-CoV-2 (COVID-19 ) [id number] ELIZABETH VACA [facility] 10-08-2021 SARS-CoV-2 (COVID-19 ) mRNA BNT-162b2 vax Diana HAWKINS [facility] 01-30-2021 SARS-CoV-2 (COVID-19 ) mRNA BNT-162b2 vax Diana HAWKINS [facility] 01-09-2021 SARS-CoV-2 (COVID-19 ) mRNA BNT-162r0 vax Diana HAWKINS [facility] 07-11-2020 influenza virus vacc ine, unspecified formulation Diana HAWKINS [facility] 07-03-2020 influenza virus vacc ine, unspecified formulation Diana HAWKINS [facility] 07-18-2019 influenza virus vacc ine, unspecified formulation Diana HAWKINS [facility] 07-08-2018 influenza virus vacc ine, unspecified formulation Diana HAWKINS [facility] 01-01-2016 pneumococcal polysaccharide vaccine, 23 valent Diana HAWKINS [facility] 09-17-2013 influenza virus vacc ine, unspecified formulation Diana HAWKINS [facility] 07-10-2011 tetanus toxoid, redu demar diphtheria toxoid, and acellular pertussis vaccine, adsorbed Diana HAWKINS [facility] Payers Date Payer Category Payer Unknown [id number] 2017 Self-pay 2017 Unknown 2012 Unknown [id number] 2012 Unknown [id number] 1981 Unknown [id number] 2.16.8 40.1.092103.3.579.2.647 1981 Unknown [id number] 2.16.8 40.1.824867.3.579.2.647 1981 Unknown [id number] 2.16.8 40.1.067824.3.579.2.647 1981 Unknown [id number] 2.16.8 40.1.074939.3.579.2.647 1981 Unknown [id number] 2.16.8 40.1.621636.3.579.2.647 1981 Unknown [id number] 2.16.8 40.1.194595.3.579.2.647 1981 Unknown [id number] 2.16.8 40.1.587869.3.579.2.647 1981 Unknown [id number] 2.16.8 40.1.194884.3.579.2.647 1981 Unknown [id number] 2.16.8 40.1.241736.3.579.2.647 1981 Unknown [id number] 2.16.8 40.1.712267.3.579.2.647 1981 Unknown [id number] 2.16.8 40.1.714703.3.579.2.647 1981 Unknown [id number] 2.16.8 40.1.801224.3.579.2.647 1981 Unknown [id number] 2.16.8 40.1.049806.3.579.2.647 1981 Unknown [id number] 2.16.8 40.1.319066.3.579.2.647 1981 Unknown [id number] 2.16.8 40.1.726741.3.579.2.647 1981 Unknown [id number] 2.16.8 40.1.009621.3.579.2.647 1981 Unknown [id number] 2.16.84 0.1.284218.3.579.2.593 1981 Unknown [id number] 2.16.84 0.1.107348.3.579.2.593 1981 Unknown [id number] 2.16.84 0.1.981843.3.579.2.593 1981 Unknown [id number] 2.16.84 0.1.112639.3.579.2.593 1981 Unknown [id number] 2.16.84 0.1.618650.3.579.2.593 1981 Unknown [id number] 2.16.84 0.1.296918.3.579.2.593 1981 Unknown [id number] 2.16.84 0.1.210784.3.579.2.593 1981 Unknown [id number] 2.16.84 0.1.185305.3.579.2.593 1981 Unknown [id number] 2.16.84 0.1.577732.3.579.2.593 1981 Unknown [id number] 2.16.84 0.1.168371.3.579.2.593 1981 Unknown [id number] 2.16.84 0.1.414817.3.579.2.593 1981 Unknown [id number] 2.16.84 0.1.933234.3.579.2.593 1981 Unknown [id number] 2.16.84 0.1.942526.3.579.2.593 1981 Unknown [id number] 2.16.84 0.1.872175.3.579.2.593 1981 Unknown [id number] 2.16.84 0.1.287547.3.579.2.593 1981 Unknown [id number] 2.16.84 0.1.798236.3.579.2.593 1981 Unknown [id number] 2.16.84 0.1.771152.3.579.2.593 1981 Unknown [id number] 2.16.84 0.1.379958.3.579.2.593 1981 Unknown [id number] 2.16.8 40.1.441432.3.579.2.128 1981 Unknown [id number] 2.16.8 40.1.187558.3.579.2.1285 1981 Unknown [id number] 2.16.8 40.1.418262.3.579.2.1285 1981 Unknown [id number] 2.16.8 40.1.562491.3.579.2.1285 1981 Unknown [id number] 2.16.8 40.1.246330.3.579.2.1285 1981 Unknown [id number] 2.16.8 40.1.190974.3.579.2.1285 1981 Unknown [id number] 2.16.8 40.1.077028.3.579.2.1285 1981 Unknown [id number] 2.16.8 40.1.028596.3.579.2.1285 1981 Unknown [id number] 2.16.8 40.1.287273.3.579.2.1285 1981 Unknown [id number] 2.16.84 0.1.204377.3.579.2.1285 1981 Unknown [id number] 2.16.84 0.1.330793.3.579.2.128 1981 Unknown [id number] 2.16.84 0.1.692389.3.579.2.128 1981 Unknown [id number] 2.16.84 0.1.788250.3.579.2.1286 1981 Unknown [id number] 2.16.8 40.1.238846.3.579.2.727 1981 Unknown [id number] 2.16.8 40.1.045110.3.579.2.727 1981 Unknown [id number] 2.16.8 40.1.491385.3.579.2.727 1981 Unknown [id number] 2.16.8 40.1.874341.3.579.2.727 1981 Unknown [id number] 2.16.8 40.1.081803.3.579.2.727 1981 Unknown [id number] 2.16.8 40.1.991259.3.579.2.173 1959 Self-pay [id number] Unknown [id number] 2.16.8 40.1.393801.3.579.2.531 Unknown [id number] 2.16.8 40.1.010000.3.579.2.531 Unknown [id number] 2.16.8 40.1.323803.3.579.2.531 Social History Date Type Detail Facility Start: 06-29-2022 End: 05-28-2023 Tobacco smoking status Ex-smoker (finding) [facility] Sex Assigned At Female [facility] Start: 1980 Sex Assigned At Female F [facility] Tobacco smoking status Never [facility] Functional Status Date Assessment Result Facility 03-07-2024 Functional Status N/A [facility] 10-12-2023 Functional Status N/A [facility] 09-13-2023 Functional Status N/A [facility] 06-29-2022 Functional Status N/A [facility] Clinical Notes 06-16-2022 to 06-01-2024 Note Date & Type Note Facility 06-01-2024 Note HPI 43 yo female with History of Left knee revision that was performed on 06/01/22 , initial TKA in 10/[address] . Here today with chronic anterior knee pain since surgery. HPI Reported by patient. Location: left Quality: aching Severity: moderate to severe Timing: chronic > 1 year Prior Imaging: x ray Previous Injections: none ROS Patient reports left knee arthralgias/joint pain . reports no fever and no chills. reports no chest pain. reports no numbness and no weakness. Physical Exam Patient is a 43 yo female Constitutional: General Appearance: NAD and comfort comfortable. Ambulation: limited ambulation. Psychiatric: Orientation: oriented to time, place, and person. Mood and Affect: normal affect and mood and active and alert. Insight: good judgement. Gait and Station: Appearance: no assistive devices Cardiovascular System: Extremities warm and well perfused Lymph Nodes: Mood and Affect: mood and affect normal. Skin: Right Lower Extremity: normal. Left Lower Extremity: normal. Inspection and palpation: no rash or lesions and good turgor. Neurologic: Sensation: grossly intact. Head: Head: normocephalic and atraumatic. Neck: Neck: trachea midline. Lungs: Respiratory effort: no dyspnea. Musculoskeletal:: Extremities: no cyanosis or edema. Motor Strength and Tone: normal tone and motor strength. Joints, Bones, and Muscles: normal movement of all extremities and no contractures. Knee Musculoskeletal Exam Gait Antalgic: left Limp: left Inspection Left Erythema: none Edema: none Ecchymosis: none Palpation Left Increased warmth: none Masses: none Crepitus: none Tenderness: present Patella: moderate Range of Motion Left Active flexion: 10 Passive flexion: 80 Strength Left Extension: 5/5. Flexion: 5/5. 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 She is working with Sanghvi to aid in programming options but overall [...] type 1 of left lower extremity HYDROcodone-acetaminophen ([place]) 5-325 mg tablet gabapentin (Neurontin) 300 mg capsule 2. Other chronic postprocedural pain HYDROcodone-acetaminophen ([place]) 5-325 mg tablet gabapentin (Neurontin) 300 mg capsule Discussed chronic pain, medication use, treatment goals. Medication risk and benefits discussed. The Spine Diagram and Test results were used to explain the condition. PLAN: 1. Continue [place] 5/325mg TID PRN for severe pain 8-10 [...] to compliance m (more content not included)... [facility] 03-07-2024 Note - From: Maggie Vargas To: [facility] - Administrative; Sent: 03/07/2024 16:37:39 EDT Show up: 09/10/2024 16:37:00 EST Subject: Ambulatory Reminder Due Date/Time: 02/27/2025 16:37:00 EDT Reminder/Recall Please schedule patient for 1 yr f/u with KUB with CHERI when schedule is built that far out. Due late February 2025 [facility] 03-07-2024 Hospital Discharge instructions Patient Education [...] include: ?8 oz (237 mL) of milk, twtcvrv-hvmilapdkqtj-spmkk milk, and calcium-fortifiedfruit juice. Calcium-fortified means that [...] ?Spinach (cooked), rhubarb, beets, sweet potatoes, and Chadian chard. ?Peanuts. ?Potato chips, niuean fries, and baked potatoes with skin on. ?Nuts and nut products. ?Chocolate. If you regularly take a diuretic medicine, make sure to eat at least 1 or 2 servings of fruits or vegetables that are high in potassium each day. These include: ?Avocado. ?Banana. ?[place], prune, carrot, or tomato juice. ?Baked potato. [...] magnesium, fish oil, or vitamin B6. Take koax-tfh-mfenkbp and prescription medicines only as told by [...] Casseroles. Pizza. Lasagna. Frozen meals. Potato chips. Guamanian fries. The items listed above may not [...] provider. Document Revised: 01/07/2023 Document Reviewed: 01/07/2023 [employer] Patient Education 2022 [place]. Follow Up Care 01/26/2024 10:43:28 With:ELIZABETH VACA PA-C, URL Address: [address] [facility] [place] [address] [phone] When: Unknown [facility] 12-24-2023 Note Pain Medicine [address] [address] Subjective Patient ID: Elvi Moore is a [...] Interventions: Medication (See MAR) Response to Interventions: [place] - effective, SCS effective 42 year old female here follow up for chronic left leg pain. Her pain is a 7/10 and is worse with standing and it is in her left knee. She states she has been working with code-laboration to make adjustments to get more coverage [...] helps. She denies adverse side effects. SUBJECTIVE: Eliv Moore is a 42 y.o. female who presents for follow up with a chief complaint of left knee pain. Since last visit patient reports pain is stable. Most recently patient underwent a xray of her stimulator to verify lead position which are still in place despite retention loop lost. She is working with Sanghvi to aid in programming options but overall [...] type 1 of left lower extremity HYDROcodone-acetaminophen ([place]) 5-325 mg tablet gabapentin (Neurontin) 300 mg capsule 2. Other chronic postprocedural pain HYDROcodone-acetaminophen ([place]) 5-325 mg tablet gabapentin (Neurontin) 300 mg capsule Discussed chronic pain, medication use, treatment goals. Medication risk and benefits discussed. The Spine Diagram and Test results were used to explain the condition. PLAN: 1. Continue [place] 5/325mg TID PRN for severe pain 8-10 [...] to compliance monit (more content not included)... [facility] 10-28-2023 [place] [address] Subjective Patient ID: Elvi Moore is a [...] before when she was working on the [employer]. She states she has been working with code-laboration to make adjustments to get more coverage [...] retention loop lost. She is working with Sanghvi to aid in programming options but overall [...] type 1 of left lower extremity HYDROcodone-acetaminophen ([place]) 5-325 mg tablet 2. Other chronic postprocedural pain HYDROcodone-acetaminophen ([place]) 5-325 mg tablet Discussed chronic pain, medication use, treatment goals. Medication risk and benefits discussed. The Spine Diagram and Test results were used to explain the condition. PLAN: 1. Increase [place] 5/325mg TID PRN for severe pain 8-10 [...] another provider. Medication (more content not included)... [facility] 10-12-2023 Note [id number] [facility] 10-12-2023 Hospital Discharge instructions Patient Education [...] With:Diana HAWKINS Address: [facility] [address] [place] [address]- Business (1) When:01/11/2024 10:36:33 Comments:With a stone metabolic workup [facility] 10-12-2023 Note Custom Cystoscopy with Stent Removal [...] you have a fever over 100 degrees. [facility] 09-13-2023 Note Chief Complaint Re Referral [...] Acharya prescribed Promethazine & Cipro 500mg BID g25ctih. [facility] 09/08/23 CC: Lt Flank Pain BUN 14 Crea 0.66 eGFR >90 [address] ap w/o - small stone Lt Kidney 4-5mm Pt had CT @ [facility] in January, July & August. They are [...] Acharya prescribed Promethazine and Cipro 500mg bid [id number]. Reports Dr. Acharya also started her on [...] including vitamins, herbs, eye drops, creams, and hjmy-wbx-zzouunt medicines. Any problems you or family members [...] provider tells you to take them. Taking epne-qdp-mfyfvlc medicines, vitamins, herbs, and supplements. Tests You [...] Follow these instructions at home: Medicines Take yxzk-bpx-jmbbffg and prescription medicines only as told by [...] provider. Document Revised: 06/10/2022 Document Reviewed: 05/09/2021 [employer] Patient Education 2022 [place]. 09/13/2023 12:55:19 Hematuria, Adult Hematuria, Adult Hematuria [...] Follow these instructions at home: Medicines Take bcer-yoa-ycomtyu and prescription medicines only as told by [...] or the blood stops without treatment. Take ilgp-ack-kmpwrye and prescription medicines only as told by your health care provider. Drink enough fluid to keep your urine pale yellow. This information is not intended to replace advice given to you by your health care provider. Make sure you discuss any questions you have with your health care provider. Document Revised: 05/28/2021 Document Reviewed: 05/28/2021 [employer] Patient Education 2022 [place]. Follow Up Care 08/20/2023 11:43:21 With:ROSS GENTILE, Diana Goss, URL Address: [facility] [address], [place] [address]- [phone] When: Unknown Comments:sched cysto [facility] 09-13-2023 Note Urology Cystoscopy Cystoscopy is a [...] including vitamins, herbs, eye drops, creams, and dkrq-byb-botuhje medicines. ? Any problems you or family [...] tells you to take them. ? Taking tgtx-mrm-dghojtl medicines, vitamins, herbs, and supplements. Tests You [...] these instructions at home: Medicines ? Take qitm-wnv-yopwftc and prescription medicines only as told by [...] [facility]2023 [place] [address] Subjective Patient ID: Elvi Moore is a [...] retention loop lost. She is working with Sanghvi to aid in programming options but overall [...] 1 of left lower extremity - HYDROcodone-acetaminophen ([place]) 5-325 mg tablet; Take 1 tablet by mouth if needed in the morning and at bedtime for severe pain (8-10 pain score). Do not start before August 20, 2023. - HYDROcodone-acetaminophen ([place]) 5-325 mg tablet; Take 1 tablet by mouth if needed in the morning and at bedtime for severe pain (8-10 pain score). Do not start before September 19, 2023. Other chronic postprocedural pain - HYDROcodone-acetaminophen ([place]) 5-325 mg tablet; Take 1 tablet by mouth if needed in the morning and at bedtime for severe pain (8-10 pain score). Do not start before August 20, 2023. - HYDROcodone-acetaminophen ([place]) 5-325 mg tablet; Take 1 tablet by [...] to explain the condition. PLAN: 1. Refill [place] 5/325mg BID PRN. Okay to fill on fill date 2. Patient instructed to contact us should she receive or prior to filling any additional opioid medications. 3. MAPS/OARRS pulled and reviewed. 4. Lumbar xrays reviewed with patient and reassured of proper lead placement and no migration issues. Continue optimization of neurostimulation 5. 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 [facility] 07-20-2023 [place] [address] Subjective Patient ID: Elvi Moore is a [...] worse. At her last appointment on 06/01/2023, Manuel thomas was at bed side and changed her settings. However, the patient feels this made it worse and changed her stimulator back to her original settings. Of note, patient sent a message on 07/07/2023 saying the SCS took away the martinez pain, but that she still has significant knee pain. We provided her with the contact number for the [employer]. Patient has repeatedly called the number we provided, but has still not been able to get a hold of the [employer]. Pain Medications: [place] 5-325 BID. Pain relief lasts around 6 [...] from the pro (more content not included)... [facility] 01-04-2023 Hospital Discharge instructions Patient Education [...] include: ?Spinach. ?Rhubarb. ?Beets. ?Potato chips and niuean fries. ?Nuts. If you regularly take a diuretic medicine, make sure to eat at least 1 2 fruits or vegetables high in potassium each day. These include: ?Avocado. ?Banana. ?[place], prune, carrot, or tomato juice. ?Baked potato. [...] Casseroles. Pizza. Lasagna. Frozen meals. Potato chips. Guamanian fries. Summary You can reduce your risk [...] 01/22/2012 Document Revised: 01/17/2020 Document Reviewed: 09/07/2017 [employer] Patient Education 2019 [place]. Follow Up Care 10/29/2022 14:23:18 With:ROSS GENTILE, Diana Goss, URL Address: [facility] [address], [place] [address]- When: Unknown [facility] 06-29-2022 Evaluation + Plan note Diagnostic Tests [facility] ([facility]) 06/29/22 [facility] 06-29-2022 Hospital Discharge instructions Patient [...] Follow these instructions at home: Medicines Take hltx-olw-vmwzlzc and prescription medicines only as told by [...] or the blood stops without treatment. Take lxoc-sbw-nucohlv and prescription medicines only as told by your health care provider. Drink enough fluid to keep your urine clear or pale yellow. This information is not intended to replace advice given to you by your health care provider. Make sure you discuss any questions you have with your health care provider. Document Released: 09/27/2006 Document Revised: 02/21/2020 Document Reviewed: 10/30/2017 [employer] Patient Education 2019 [employer] Follow Up Care 05/06/2022 15:50:29 With:ROSS GENTILE, Diana Goss, URL Address: [facility] [address] [place] [address]- [phone] When: Unknown [facility] Monique 06-16-2022 Note MR#: [id number] I [facility] Pt. Name: Elvi Moore Admitted: 06/01/2022 [...] Cavazos MD Date Trans: 06/16/2022 02:27 P/mmo [id number] cc: Yasir Acharya M.D. [address], [place] [address] [facility] Evaluation + Plan note Future Appointments Appointment Date:01/11/2023 01:45:00 PM Scheduled Provider:Diana HAWKINS MD Location:[facility] Appointment Type:URO Office Visit [facility] Evaluation + Plan note Future Appointments Appointment Date:02/07/2024 10:15:00 AM Scheduled Provider:Diana HAWKINS MD Location:[facility] Appointment Type:URO Office Visit [facility] Evaluation note No assessment inform ation available [facility] Work Phone: Evaluation note Diagnosis Onset Date Left ankle sprain noneactive [facility] Work Phone: Hospital course Narrative No data available for this section [facility] progress note No data available for this section [facility] Summary Purpose Family History No Family History [...] section and content) DATE CREATED AUTHOR 03/31/2018 [facility] DATE CREATED AUTHOR AUTHOR'S ORGANIZ ATION 06/23/2022 [facility] DATE CREATED AUTHOR AUTHOR'S ORGANIZ ATION 01/28/2023 [facility] DATE CREATED AUTHOR AUTHOR'S ORGANIZ ATION 03/09/2024 [facility] DATE CREATED AUTHOR AUTHOR'S ORGANIZ ATION 03/09/2024 [facility] DATE CREATED AUTHOR AUTHOR'S ORGANIZ ATION 03/31/2024 [facility] DATE CREATED AUTHOR AUTHOR'S ORGANIZ ATION 05/04/2024 [facility] DATE CREATED AUTHOR AUTHOR'S ORGANIZ ATION 06/05/2024 [facility] Care Team (unrecognized sect ion and content) Team Status: Active Member Role Status Dates Yasir Acharya MD Primary Care Provider Active Team Status: Inactive Member Role Status Dates Yasir Acharya MD Primary Care Provider Active Start: January 06, 2024 End: January 06, 2024 Rianna Antonio APRN Attending Provider Active Start: January 06, 2024 End: January 06, 2024 Team Status: Active Member Role Status Dates Yasir Acharya MD Primary Care Provider, Referring Pr sebastian Active Osiris Calderón APRN Attending Provider Acti kendall Team Status: Inactive Member Role Status Dates [...] BE BASED ON THE PRIMARY CLINICAL RECORDS. [employer] provides no warranty or guarantee of the accuracy or completeness of information in this document.
--- NOTE | 2024-06-21 07:28 | CT_ITS ---
The [place] [id number] Patient Name: KRISTINE MADDEN MRN: [id number] date: 1980 Sex: F Assigned Patient Location: ER Current Patient Location: ER Accession/Order Number: [id number] Exam Date: 06/21/2024 08:11 Report Date: 06/21/2024 08:35 At the request of: KATHE FRAUSTO Procedure: CT abdomen pelvis wo con EXAMINATION: CT abdomen pelvis wo con HISTORY: flank pain COMPARISON: No relevant comparison available. TECHNIQUE: Axial, Coronal, and Sagittal images were created without IV contrast. Dose reduction techniques were achieved by using automated exposure control and/or adjustment of mA and/or kV according to patient size and/or use of iterative reconstruction technique. FINDINGS: LUNG BASES: No visible pulmonary or pleural disease. LIVER: No enlargement, atrophy, abnormal density, or significant focal lesion. BILIARY: Surgical clips from cholecystectomy PANCREAS: No lesion, fluid collection, ductal dilatation, or atrophy. SPLEEN: No enlargement or focal lesion. ADRENALS: No mass or enlargement. KIDNEYS: No mass, obstruction, or calcification. BOWEL/MESENTERY: Suture lines in the stomach and left mid abdominal small bowel loops. Nonobstructive bowel gas pattern. AORTA/VASCULAR: No aneurysm or dissection. RETROPERITONEUM: No mass or adenopathy. LYMPH NODES: No adenopathy. URINARY BLADDER: No visible focal wall thickening, lesion, or calculus. PELVIC ORGANS: Hysterectomy ABDOMINAL WALL: No mass or hernia. BONES: No bony lesion or fracture. OTHER: Implanted right flank neurostimulator CT/CT abdomen pelvis wo con IMPRESSION: No obstructive uropathy Electronically authenticated by: CARISSA JOHN Date: 06/21/2024 08:35
[2024-06-21] MEDS: 0.9 % SODIUM CHLORIDE 1,000 ML 999 ML IV (07:34)
--- NOTE | 2024-06-21 07:37 | ED.GENADUL1 ---
HPI HPI - General Adult General Chief complaint: Abdominal Pain Stated complaint: FLANK PAIN/ VOMITTING Time Seen by Provider: 06/21/24 07:08 History of Present Illness HPI narrative: Patient presents ED complaining of right flank pain. She has a history of kidney stones usually on the left side. She has a history of pyelonephritis as well. Patient saw her doctor yesterday who gave her some fluids and checked her urine. He said if there is continued pain and vomiting please come into the emergency room for evaluation. Patient has needed surgery in the past for her kidney stones on the left. She said her right flank pain is radiating around to the front but no specific abdominal pain. She does have blood in the urine. She has been nauseous and vomiting. No fevers. Related Data Home Medications ?Medication ?Instructions ?Recorded ?Confirmed cyanocobalamin (vitamin B-12) 1,000 mcg IM .monthly 08/11/23 03/22/24 1,000 mcg/mL injection solution hydrocodone 5 mg-acetaminophen 325 1 tab PO Q8H PRN pain 08/11/23 03/22/24 mg tablet tizanidine 4 mg tablet 8 mg PO BEDTIME 08/11/23 03/22/24 pantoprazole 40 mg tablet,delayed 40 mg PO BID 09/13/23 03/22/24 release calcium carbonate 1,200 mg PO DAILY 03/17/24 03/22/24 ferrous sulfate 325 mg (65 mg 325 mg PO DAILY 03/17/24 03/22/24 iron) tablet (FeroSul) gabapentin 300 mg capsule 300 mg PO Q12H 03/17/24 03/22/24 multivitamin 1 tab PO DAILY 03/17/24 03/22/24 amitriptyline 100 mg tablet 100 mg PO .QHS 03/22/24 03/22/24 Previous Rx's ?Medication ?Instructions ?Recorded levofloxacin 750 mg tablet 750 mg PO DAILY 10 days #10 tabs 03/24/24 Allergies Allergy/AdvReac Type Severity Reaction Status Date / Time ketorolac [From Toradol] Allergy Intermediate Rash Verified 03/22/24 10:19 meperidine [From Demerol] Allergy Intermediate Rash Verified 03/22/24 10:19 prochlorperazine Allergy Intermediate hallucinati Verified 03/22/24 10:19 [From Compazine] ons Opioid HPI Opioid Management Most Recent Opioid Data: Last Pain Scale 7 06/21/24 09:03 Last MAR Pain Assessment 06/21/24 09:03 Last ORT Total Score 7 03/22/24 17:39 Last ORT Risk Category Moderate Risk 03/22/24 17:39 Review of Systems ROS Status of ROS 10 or more systems reviewed and unremarkable except as noted in history and below [facility] Medical History (Updated 06/21/24 @ 09:43 by Mouna Dunham DO) Nausea & vomiting ?R11.2 - Nausea with vomiting, unspecified (ICD-10) Right flank pain ?R10.9 - Unspecified abdominal pain (ICD-10) Nausea & vomiting ?R11.2 - Nausea with vomiting, unspecified (ICD-10) Mass of right parotid gland ?K11.8 - Other diseases of salivary glands (ICD-10) Migraines ?G43.909 - Migraine, unspecified, not intractable, without status migrainosus (ICD-10) Anxiety ?F41.9 - Anxiety disorder, unspecified (ICD-10) Depression ?F32.A - Depression, unspecified (ICD-10) Stomach ulcer ?K25.9 - Gastric ulcer, unspecified as acute or chronic, without hemorrhage or perforation (ICD-10) Pancreatitis ?K85.90 - Acute pancreatitis without necrosis or infection, unspecified (ICD-10) Kidney stone ?N20.0 - Calculus of kidney (ICD-10) Surgical History (Updated 03/22/24 @ 10:21 by Gin Machado) History of fine needle aspiration with imaging guidance ?Z98.890 - Other specified postprocedural states (ICD-10) Hx laparoscopic cholecystectomy ?Z90.49 - Acquired absence of other specified parts of digestive tract (ICD-10) History of lumpectomy of right breast ?Z98.890 - Other specified postprocedural states (ICD-10) History of placement of ear tubes ?Z96.22 - Myringotomy tube(s) status (ICD-10) S/P insertion of spinal cord stimulator ?Z96.89 - Presence of other specified functional implants (ICD-10) History of knee replacement procedure of left knee ?Z96.652 - Presence of left artificial knee joint (ICD-10) Gastric bypass status for obesity ?Z98.84 - Bariatric surgery status (ICD-10) H/O: hysterectomy ?Z90.710 - Acquired absence of both cervix and uterus (ICD-10) Hx of appendectomy ?Z90.49 - Acquired absence of other specified parts of digestive tract (ICD-10) Family History (Updated 08/11/23 @ 10:31 by Josie Pantoja) Grandfather Family history of COPD (chronic obstructive pulmonary disease) Father Family history of cancer Family history of diabetes mellitus Family history of hypertension Family history of stroke Sister Family history of cancer Family history of diabetes mellitus Grandmother Family history of diabetes mellitus Family history of hypertension Social History Within the past year, how often did you have a drink containing alcohol: never Within the past year, how many standard drinks containing alcohol did you have on a typical day: 1 or 2 Within the past year, how often did you have six or more drinks on one occasion: never Total score: 0 Score interpretation: A score less than 3 is consistent with normal alcohol consumption. Smoking status: Former smoker Second hand tobacco smoke exposure: No Non-prescribed substance use: denies use Previous occupational history: [employer] Known occupational exposures/hazards: No Highest level of school completed/degree received: some college, no degree Are you now , , , , never or living with a partner: In a typical week, how many times do you talk on the telephone with family, friends, or neighbors: 3 or more times per week How often do you get together with friends or relatives: 3 or more times per week How often do you attend pentecostalism or rastafarian services: 4 or more times per year Do you belong to any clubs or organizations such as pentecostalism groups unions, fraternal or athletic groups, or school groups: no Total score: 3 Score interpretation: A score of greater than or equal to 2 indicates the lowest level of social isolation. Little interest or pleasure in doing things: several days Feeling down, depressed, or hopeless: not at all Feel stressed/tense/nervous/anxious/difficulty sleeping: not at all Do you think of yourself as: straight/heterosexual Gender Identity: female Exam Narrative Exam Narrative: General: alert, no acute distress Cardiovascular: regular rate and rhythm, normal peripheral perfusion. Respiratory: Lungs CTA, respirations non labored. Extremities: no deformity, no trauma. Neurological: oriented x 4, LOC appropriate for age. Right CVA tenderness, Abdomen soft no peritoneal signs Constitutional Vital Signs, click to edit/add: Last Vital Signs Temp 99.2 F 06/21/24 07:02 Pulse 100 H 06/21/24 07:02 Resp 16 06/21/24 07:02 BP 142/110 H 06/21/24 08:08 Pulse Ox 99 06/21/24 07:02 O2 Del Method Room Air 06/21/24 07:02 Course Vital Signs Vital signs: Vital Signs Temperature 99.2 F 06/21/24 07:02 Pulse Rate 100 H 06/21/24 07:02 Respiratory Rate 16 06/21/24 07:02 Blood Pressure 171/114 H 06/21/24 07:02 Pulse Oximetry 99 06/21/24 07:02 Oxygen Delivery Method Room Air 06/21/24 07:02 Temperature 99.2 F 06/21/24 07:02 Pulse Rate 100 H 06/21/24 07:02 Respiratory Rate 16 06/21/24 07:02 Blood Pressure 142/110 H 06/21/24 08:08 Pulse Oximetry 99 06/21/24 07:02 Oxygen Delivery Method Room Air 06/21/24 07:02 Medical Decision Making MDM Narrative Medical decision making narrative: Labs show blood in the urine and small leukocytes. No obstructing kidney stone seen on the CT. No acute pyelonephritis seen on the CT. Patient's been on Levaquin for [address] Ledesma did a urine culture in his office. I called and spoke to Dr. Ledesma and he said to give the patient a gram of Rocephin and the urine culture should be back tomorrow and he will follow-up with the patient. Patient is feeling better after pain medication and Zofran as well as IV fluids. Patient states she already has Phenergan and Zofran and [place] at home to take for pain and nausea. She was instructed that Dr. Ledesma will be following up with her. Return to ED if worsening symptoms otherwise continue to follow with Dr. Ledesma outpatient Differential Diagnosis Differential Diagnosis: Pyelonephritis UTI kidney stone Lab Data Lab results reviewed: Yes I reviewed the patient's lab results Labs: Lab Results 06/21/24 Range/Units 07:05 WBC 6.2 (4.0-11.0) 10^3/uL RBC 4.51 (4.20-5.40) 10^6/uL Hgb 12.5 (12.0-16.0) g/dL Hct 38.9 (36.0-48.0) % MCV 86.3 (81.0-99.0) fL MCH 27.7 (26.7-34.0) pg MCHC 32.1 (29.9-35.2) g/dL RDW 13.2 (11.0-15.0) % Plt Count 255 (150-450) 10^3/uL MPV 9.5 (9.5-13.5) fL Neut % (Auto) 55.9 (43.0-75.0) % Lymph % (Auto) 34.0 (20.5-60.0) % Hartley % (Auto) 8.3 (1.7-12.0) % Eos % (Auto) 1.1 (0.9-7.0) % Baso % (Auto) 0.2 (0.2-2.0) % Neut # (Auto) 3.5 (1.4-6.5) 10^3/uL Lymph # (Auto) 2.1 (1.2-3.8) 10^3/uL Hartley # (Auto) 0.5 (0.3-0.8) 10^3/uL Eos # (Auto) 0.1 (0.0-0.7) 10^3/uL Baso # (Auto) 0.0 (0.0-0.1) 10^3/uL Abs Immat Gran (auto) 0.03 (0.00-0.03) 10^3/uL Imm/Tot Granulo (auto) 0.5 (0.0-0.5) % Sodium 141 (136-145) mmol/L Potassium 4.5 (3.5-5.1) mmol/L Chloride 105 (98-107) mmol/L Carbon Dioxide 27.6 (21.0-32.0) mmol/L Anion Gap 12.9 BUN 10.0 (7.0-18.0) mg/dL Creatinine 0.66 (0.55-1.02) mg/dL Est GFR ( Amer) >60 (>=60) Est GFR (Non-Af Amer) >60 (>=60) BUN/Creatinine Ratio 15.2 Glucose 91 (74-106) mg/dL Calcium 8.9 (8.5-10.1) mg/dL Total Bilirubin 0.5 (0.2-1.0) mg/dL AST 29 (15-37) U/L ALT 29 (14-59) U/L Alkaline Phosphatase 98 (46-116) U/L Total Protein 7.5 (6.4-8.2) g/dL Albumin 3.8 (3.4-5.0) g/dL Globulin 3.7 g/dL Albumin/Globulin Ratio 1.[address] scan - abdomen: Radiologist's impression: ITS Impressions Abdomen/Pelvis CT 06/21/24 07:28 IMPRESSION: No obstructive uropathy Electronically authenticated by: CARISSA JOHN Date: 06/21/2024 08:35 Discharge Plan Discharge Chief Complaint: Abdominal Pain Clinical Impression: Flank pain Patient Disposition: Home, Self-Care Time of Disposition Decision: 09:43 Condition: Good Mode of Transportation: Private Vehicle Prescriptions / Home Meds: No Action cyanocobalamin (vitamin B-12) 1,000 mcg/mL solution 1,000 mcg IM .monthly tizanidine 4 mg tablet 8 mg PO BEDTIME hydrocodone-acetaminophen 5-325 mg tablet 1 tab PO Q8H PRN (Reason: pain) pantoprazole 40 mg tablet,delayed release (DR/EC) 40 mg PO BID amitriptyline 100 mg tablet 100 mg PO .QHS levofloxacin 750 mg tablet 750 mg PO DAILY 10 Days Qty: 10 0RF gabapentin 300 mg capsule 300 mg PO Q12H multivitamin Tablet 1 tab PO DAILY ferrous sulfate [FeroSul] 325 mg (65 mg iron) tablet 325 mg PO DAILY calcium carbonate 600 mg calcium (1,500 mg) tablet 1,200 mg PO DAILY Print Language: Welsh Instructions: Flank Pain (ED) Referrals: Yasir Ledesma MD [Primary Care Provider] - 1 week Discharge Date/Time: 06/21/24 09:53
[2024-06-21 07:43] LABS: Alanine Aminotransferase 29 U/L (14-59); Albumin Level 3.8 g/dL (3.4-5.0); Alkaline Phosphatase 98 U/L (46-116); Anion Gap 12.9; Aspartate Amino Transferase 29 U/L (15-37); BUN Creatinine Ratio 15.2; Bilirubin Total 0.5 mg/dL (0.2-1.0); Calcium 8.9 mg/dL (8.5-10.1); Carbon Dioxide 27.6 mmol/L (21.0-32.0); Chloride 105 mmol/L (98-107); Estimated GFR (African America >60 (>=60); Estimated GFR (Non-African Ame >60 (>=60); Globulin 3.7 g/dL; Glucose 91 mg/dL (74-106); Sodium 141 mmol/L (136-145); Total Protein 7.5 g/dL (6.4-8.2)
[2024-06-21 07:44] LABS: Basophils Percent Auto 0.2 % (0.2-2.0); Eosinophils Absolute Auto 0.1 10^3/uL (0.0-0.7); Eosinophils Percent Auto 1.1 % (0.9-7.0); Hematocrit 38.9 % (36.0-48.0); Hemoglobin 12.5 g/dL (12.0-16.0); Immature Granulocytes Abs Auto 0.03 10^3/uL (0.00-0.03); Immature Granulocytes Pct Auto 0.5 % (0.0-0.5); Lymphocytes Absolute Auto 2.1 10^3/uL (1.2-3.8); Mean Corpuscular HGB Conc 32.1 g/dL (29.9-35.2); Mean Corpuscular Hemoglobin 27.7 pg (26.7-34.0); Mean Corpuscular Volume 86.3 fL (81.0-99.0); Mean Platelet Volume 9.5 fL (9.5-13.5); Monocytes Absolute Auto 0.5 10^3/uL (0.3-0.8); Monocytes Percent Auto 8.3 % (1.7-12.0); Neutrophils Absolute Auto 3.5 10^3/uL (1.4-6.5); Neutrophils Percent Auto 55.9 % (43.0-75.0); Platelet Count 255 10^3/uL (150-450); Potassium 4.5 mmol/L (3.5-5.1); Red Blood Count 4.51 10^6/uL (4.20-5.40); Red Cell Distribution Width 13.2 % (11.0-15.0); White Blood Count 6.2 10^3/uL (4.0-11.0)
[2024-06-21] MEDS: MORPHINE SULFATE 4 MG/ML VIAL IV (07:53)
[2024-06-21] MEDS: ONDANSETRON PF 4 MG/2 ML VIAL IV (07:54)
[2024-06-21 08:08] VITALS: BP 142/110
[2024-06-21] MEDS: CEFTRIAXONE 1,000 MG in 0.9 % SODIUM CHLORIDE 50 ML 100 MG IV (09:02)
[2024-06-21] MEDS: HYDROMORPHONE HCL 0.5 MG/0.5 ML SYRINGE IV (09:03)
== END 2024-06-21 09:53 | disposition home or self-care (01) ==
PROVIDERS: Emergency Provider Emergency Medicine; PCP Family Medicine
DX: R10.9 Unspecified abdominal pain (principal); Z87.442 Personal history of urinary calculi; R11.2 Nausea with vomiting, unspecified; Z87.891 Personal history of nicotine dependence; Z90.49 Acquired absence of other specified parts of digestive tract; Z90.710 Acquired absence of both cervix and uterus
CPT/HCPCS: 36415; 74176; 80053; 85025; 96361; 96365; 96375; 99284; J0696; J1170; J2270; J2405

== ENCOUNTER 2024-07-06 09:55 | Observation (INO) | payer OTHER, SELFPAY ==
[2024-07-06] VITALS (8 sets, daily range): BP systolic 138–147; BP diastolic 82–98; PULSE 73–96; TEMP 36.6–37.2; O2SAT 96–99; BMI 25.0; BMI 26.7
--- NOTE | 2024-07-06 10:14 | CT_ITS ---
The [address] [address] Patient Name: KRISTINE MADDEN MRN: [id number] date: 1980 Sex: F Assigned Patient Location: ER Current Patient Location: ER Accession/Order Number: [id number] Exam Date: 07/06/2024 10:32 Report Date: 07/06/2024 11:09 At the request of: GENNA HEATON Procedure: CT abdomen pelvis w con EXAMINATION: CT abdomen pelvis w con HISTORY: Left-side abdominal pain, rule out diverticulitis ; vomiting, diarrhea COMPARISON: CT abdomen pelvis 06/21/2024 TECHNIQUE: Axial, Coronal, and Sagittal images were obtained without and/or with IV contrast as indicated by examination type. Dose reduction techniques were achieved by using automated exposure control and/or adjustment of mA and/or kV according to patient size and/or use of iterative reconstruction technique. FINDINGS: LUNG BASES: No visible pulmonary or pleural disease. LIVER: No enlargement, atrophy, suspicious density, or significant focal lesion. BILIARY: Cholecystectomy. PANCREAS: No lesion, fluid collection, or abnormal duct dilatation. SPLEEN: No enlargement or focal lesion. ADRENALS: No mass or enlargement. KIDNEYS: No mass, obstruction, or calcification. BOWEL/MESENTERY: Prior gastric bypass surgery. Approximate 10 cm segment of slight wall thickening of the partially distended transverse colon. AORTA/VASCULAR: No aneurysm or dissection. RETROPERITONEUM: No mass or adenopathy. LYMPH NODES: No adenopathy. URINARY BLADDER: No visible focal wall thickening, lesion, or calculus. PELVIC ORGANS: Hysterectomy. ABDOMINAL WALL: No mass or hernia. BONES: No bony lesion or fracture. OTHER: Neurostimulator pack within right flank subcutaneous fat with neural electrodes within lumbar spine spine central canal. CT/CT abdomen pelvis w con IMPRESSION: 1. Mild wall thickening of a segment of proximal to mid transverse colon which may represent mild colitis. This is new since prior study, but the colon is only partially distended. 2. Prior gastric bypass surgery. No obstruction. Electronically authenticated by: RUSSELL DUFF Date: 07/06/2024 11:09
--- NOTE | 2024-07-06 10:14 | ED.ABDPAIN1 ---
HPI - Abdominal Pain General Chief Complaint: Nausea/Vomiting/Diarrhea Stated Complaint: DIARRHEA, NAUSEA, ABDOMINAL PAIN/CLINIC REFERRAL Time Seen by Provider: 07/06/24 10:06 Source: patient Mode of arrival: walk-in History of Present Illness HPI narrative: Foot series female presents for left-sided abdominal pain. It started 3 days ago and is mostly in the left upper quadrant. No fever but she has been having loose stools and she saw a very tiny bit of blood in it. No dysuria or hematuria or fever. The pain is moderate and waxes and wanes. Related Data Home Medications ?Medication ?Instructions ?Recorded ?Confirmed cyanocobalamin (vitamin B-12) 1,000 mcg IM .monthly 08/11/23 03/22/24 1,000 mcg/mL injection solution hydrocodone 5 mg-acetaminophen 325 1 tab PO Q8H PRN pain 08/11/23 03/22/24 mg tablet tizanidine 4 mg tablet 8 mg PO BEDTIME 08/11/23 03/22/24 pantoprazole 40 mg tablet,delayed 40 mg PO BID 09/13/23 03/22/24 release calcium carbonate 1,200 mg PO DAILY 03/17/24 03/22/24 ferrous sulfate 325 mg (65 mg 325 mg PO DAILY 03/17/24 03/22/24 iron) tablet (FeroSul) gabapentin 300 mg capsule 300 mg PO Q12H 03/17/24 03/22/24 multivitamin 1 tab PO DAILY 03/17/24 03/22/24 amitriptyline 100 mg tablet 100 mg PO .QHS 03/22/24 03/22/24 Previous Rx's ?Medication ?Instructions ?Recorded levofloxacin 750 mg tablet 750 mg PO DAILY 10 days #10 tabs 03/24/24 Allergies Allergy/AdvReac Type Severity Reaction Status Date / Time ketorolac [From Toradol] Allergy Intermediate Rash Verified 03/22/24 10:19 meperidine [From Demerol] Allergy Intermediate Rash Verified 03/22/24 10:19 prochlorperazine Allergy Intermediate hallucinati Verified 03/22/24 10:19 [From Compazine] ons Review of Systems ROS Narrative A ten point review of systems is negative except as noted above. [facility] Medical History (Updated 07/06/24 @ 12:08 by Durga Aguiar MD) Nausea & vomiting ?R11.2 - Nausea with vomiting, unspecified (ICD-10) Right flank pain ?R10.9 - Unspecified abdominal pain (ICD-10) Nausea & vomiting ?R11.2 - Nausea with vomiting, unspecified (ICD-10) Mass of right parotid gland ?K11.8 - Other diseases of salivary glands (ICD-10) Migraines ?G43.909 - Migraine, unspecified, not intractable, without status migrainosus (ICD-10) Anxiety ?F41.9 - Anxiety disorder, unspecified (ICD-10) Depression ?F32.A - Depression, unspecified (ICD-10) Stomach ulcer ?K25.9 - Gastric ulcer, unspecified as acute or chronic, without hemorrhage or perforation (ICD-10) Pancreatitis ?K85.90 - Acute pancreatitis without necrosis or infection, unspecified (ICD-10) Kidney stone ?N20.0 - Calculus of kidney (ICD-10) Surgical History (Updated 03/22/24 @ 10:21 by Gin Machado) History of fine needle aspiration with imaging guidance ?Z98.890 - Other specified postprocedural states (ICD-10) Hx laparoscopic cholecystectomy ?Z90.49 - Acquired absence of other specified parts of digestive tract (ICD-10) History of lumpectomy of right breast ?Z98.890 - Other specified postprocedural states (ICD-10) History of placement of ear tubes ?Z96.22 - Myringotomy tube(s) status (ICD-10) S/P insertion of spinal cord stimulator ?Z96.89 - Presence of other specified functional implants (ICD-10) History of knee replacement procedure of left knee ?Z96.652 - Presence of left artificial knee joint (ICD-10) Gastric bypass status for obesity ?Z98.84 - Bariatric surgery status (ICD-10) H/O: hysterectomy ?Z90.710 - Acquired absence of both cervix and uterus (ICD-10) Hx of appendectomy ?Z90.49 - Acquired absence of other specified parts of digestive tract (ICD-10) Family History (Updated 08/11/23 @ 10:31 by Josie Pantoja) Grandfather Family history of COPD (chronic obstructive pulmonary disease) Father Family history of cancer Family history of diabetes mellitus Family history of hypertension Family history of stroke Sister Family history of cancer Family history of diabetes mellitus Grandmother Family history of diabetes mellitus Family history of hypertension Social History Within the past year, how often did you have a drink containing alcohol: never Within the past year, how many standard drinks containing alcohol did you have on a typical day: 1 or 2 Within the past year, how often did you have six or more drinks on one occasion: never Total score: 0 Score interpretation: A score less than 3 is consistent with normal alcohol consumption. Smoking status: Former smoker Second hand tobacco smoke exposure: No Non-prescribed substance use: denies use Previous occupational history: [employer] Known occupational exposures/hazards: No Highest level of school completed/degree received: some college, no degree Are you now , , , , never or living with a partner: In a typical week, how many times do you talk on the telephone with family, friends, or neighbors: 3 or more times per week How often do you get together with friends or relatives: 3 or more times per week How often do you attend evangelical or roman catholic services: 4 or more times per year Do you belong to any clubs or organizations such as evangelical groups unions, fraternal or athletic groups, or school groups: no Total score: 3 Score interpretation: A score of greater than or equal to 2 indicates the lowest level of social isolation. Little interest or pleasure in doing things: several days Feeling down, depressed, or hopeless: not at all Feel stressed/tense/nervous/anxious/difficulty sleeping: not at all Do you think of yourself as: straight/heterosexual Gender Identity: female Exam Narrative Exam Narrative: Nurses note and vital signs reviewed and patient is not hypoxic. General: The patient appears in no apparent distress. Skin: Warm, dry, no pallor noted. There is no rash noted. Head: Normocephalic, atraumatic Eye: Normal conjunctiva, no drainage Ears, Nose, Mouth, and Throat: oral mucosa is moist. Nares patent. Cardiovascular: Regular Rate and Rhythm Respiratory: Patient is in no distress, no accessory muscle use, lungs are clear to auscultation, no wheezing, rales or rhonchi Back: non-tender GI: No bruise rash or distention. She has tenderness in the left upper quadrant. No tenderness in the left lower quadrant. No masses. Musculoskeletal: The patient has no evidence of calf tenderness, no pitting edema, symmetrical pulses noted bilaterally Neurological: A&O, normal speech Psychiatric: Cooperative Constitutional Vital Signs, click to edit/add: Last Vital Signs Temp 99.0 F 07/06/24 09:59 Pulse 96 H 07/06/24 09:59 Resp 18 07/06/24 09:59 BP 138/88 07/06/24 09:59 Pulse Ox 99 07/06/24 09:59 O2 Del Method Room Air 07/06/24 09:59 Course Vital Signs Vital signs: Vital Signs Temperature 99.0 F 07/06/24 09:59 Pulse Rate 96 H 07/06/24 09:59 Respiratory Rate 18 07/06/24 09:59 Blood Pressure 138/88 07/06/24 09:59 Pulse Oximetry 99 07/06/24 09:59 Oxygen Delivery Method Room Air 07/06/24 09:59 Temperature 99.0 F 07/06/24 09:59 Pulse Rate 96 H 07/06/24 09:59 Respiratory Rate 18 07/06/24 09:59 Blood Pressure 138/88 07/06/24 09:59 Pulse Oximetry 99 07/06/24 09:59 Oxygen Delivery Method Room Air 07/06/24 09:59 MDM - Abdominal Pain MDM Narrative Medical decision making narrative: The patient has a suggestion of colitis on the CAT scan. Blood work is normal. The patient states she is having too much pain to go home so we will admit her and she was given IV Cipro and Flagyl as well as pain medicine and antiemetic. Findings are discussed with the patient. Differential Diagnosis Differential diagnosis: Likely abdominal pain, constipation, gastroenteritis, pancreatitis, small bowel obstruction and other (Colitis) Lab Data Attestation: I reviewed the patient's lab results. Labs: Lab Results 07/06/24 07/06/24 Range/Units 10:06 10:12 WBC 5.2 (4.0-11.0) 10^3/uL RBC 4.41 (4.20-5.40) 10^6/uL Hgb 12.4 (12.0-16.0) g/dL Hct 39.2 (36.0-48.0) % MCV 88.9 (81.0-99.0) fL MCH 28.1 (26.7-34.0) pg MCHC 31.6 (29.9-35.2) g/dL RDW 13.5 (11.0-15.0) % Plt Count 276 (150-450) 10^3/uL MPV 9.3 L (9.5-13.5) fL Neut % (Auto) 54.2 (43.0-75.0) % Lymph % (Auto) 37.7 (20.5-60.0) % Christian % (Auto) 6.0 (1.7-12.0) % Eos % (Auto) 1.5 (0.9-7.0) % Baso % (Auto) 0.4 (0.2-2.0) % Neut # (Auto) 2.8 (1.4-6.5) 10^3/uL Lymph # (Auto) 2.0 (1.2-3.8) 10^3/uL Christian # (Auto) 0.3 (0.3-0.8) 10^3/uL Eos # (Auto) 0.1 (0.0-0.7) 10^3/uL Baso # (Auto) 0.0 (0.0-0.1) 10^3/uL Abs Immat Gran (auto) 0.01 (0.00-0.03) 10^3/uL Imm/Tot Granulo (auto) 0.2 (0.0-0.5) % Sodium 138 (136-145) mmol/L Potassium 3.7 (3.5-5.1) mmol/L Chloride 102 (98-107) mmol/L Carbon Dioxide 29.9 (21.0-32.0) mmol/L Anion Gap 9.8 BUN 15.0 (7.0-18.0) mg/dL Creatinine 0.74 (0.55-1.02) mg/dL Est GFR ( Amer) >60 (>=60) Est GFR (Non-Af Amer) >60 (>=60) BUN/Creatinine Ratio 20.3 Glucose 88 (74-106) mg/dL Calcium 9.2 (8.5-10.1) mg/dL Urine Color Yellow (YELLOW) Urine Clarity Clear (CLEAR) Urine pH 6.0 (5.0-9.0) Ur Specific [place] 1.025 (1.005-1.025) Urine Protein Negative (NEG/TRACE) mg/dL Urine Glucose (UA) Negative (NEGATIVE) mg/dL Urine Ketones Negative (NEGATIVE) mg/dL Urine Occult Blood Negative (NEGATIVE) Urine Nitrite Negative (NEGATIVE) Urine Bilirubin Negative (NEGATIVE) Urine Urobilinogen 0.2 (0.2-1.0) EU/dL Ur Leukocyte Esterase Small A (NEGATIVE) Urine RBC 0-2 (0-2) #/HPF Urine WBC 5-10 A (NONE SEEN) #/HPF Ur Squamous Epith Cells Moderate A (NONE/RARE) #/LPF Urine Crystals None seen (None Seen) #/HPF Urine Bacteria Trace A (NONE SEEN) #/HPF Urine Casts None seen (NONE SEEN) #/LPF Urine Mucus Trace A (NONE SEEN) Ur Culture Indicated? Yes Imaging Data CT scan - abdomen: Radiologist's impression: ITS Impressions Abdomen/Pelvis CT 07/06/24 10:14 IMPRESSION: 1. Mild wall thickening of a segment of proximal to mid transverse colon which may represent mild colitis. This is new since prior study, but the colon is only partially distended. 2. Prior gastric bypass surgery. No obstruction. Electronically authenticated by: RUSSELL DUFF Date: 07/06/2024 11:09 Discharge Plan Discharge Chief Complaint: Nausea/Vomiting/Diarrhea Clinical Impression: Colitis Patient Disposition: Admitted as Observation Time of Disposition Decision: 12:07 Condition: Good
[2024-07-06 10:28] LABS: Basophils Percent Auto 0.4 % (0.2-2.0); Eosinophils Absolute Auto 0.1 10^3/uL (0.0-0.7); Eosinophils Percent Auto 1.5 % (0.9-7.0); Hematocrit 39.2 % (36.0-48.0); Hemoglobin 12.4 g/dL (12.0-16.0); Immature Granulocytes Abs Auto 0.01 10^3/uL (0.00-0.03); Immature Granulocytes Pct Auto 0.2 % (0.0-0.5); Lymphocytes Percent Auto 37.7 % (20.5-60.0); Mean Corpuscular HGB Conc 31.6 g/dL (29.9-35.2); Mean Corpuscular Hemoglobin 28.1 pg (26.7-34.0); Mean Corpuscular Volume 88.9 fL (81.0-99.0); Mean Platelet Volume 9.3 fL (9.5-13.5); Monocytes Absolute Auto 0.3 10^3/uL (0.3-0.8); Neutrophils Absolute Auto 2.8 10^3/uL (1.4-6.5); Neutrophils Percent Auto 54.2 % (43.0-75.0); Platelet Count 276 10^3/uL (150-450); Red Blood Count 4.41 10^6/uL (4.20-5.40); Red Cell Distribution Width 13.5 % (11.0-15.0); White Blood Count 5.2 10^3/uL (4.0-11.0)
[2024-07-06 10:34] LABS: Bilirubin Urine NEGATIVE (NEGATIVE); Blood Urine NEGATIVE (NEGATIVE); Clarity Urine CLEAR (CLEAR); Color Urine YELLOW (YELLOW); Glucose Urine UA NEGATIVE (NEGATIVE); Ketones Urine NEGATIVE (NEGATIVE); Leukocyte Esterase Urine SMALL (NEGATIVE); Nitrite Urine NEGATIVE (NEGATIVE); Protein Urine NEGATIVE (NEG/TRACE); Specific Gravity Urine 1.025 (1.005-1.025); Urobilinogen Urine 0.2 EU/dL (0.2-1.0)
[2024-07-06 10:41] LABS: Anion Gap 9.8; BUN Creatinine Ratio 20.3; Calcium 9.2 mg/dL (8.5-10.1); Carbon Dioxide 29.9 mmol/L (21.0-32.0); Chloride 102 mmol/L (98-107); Estimated GFR (African America >60 (>=60); Estimated GFR (Non-African Ame >60 (>=60); Glucose 88 mg/dL (74-106); Potassium 3.7 mmol/L (3.5-5.1); Sodium 138 mmol/L (136-145)
[2024-07-06 10:42] LABS: Bacteria Urine TRACE #/HPF (NONE SEEN); RBC Urine 0-2 #/HPF (0-2)
[2024-07-06 10:43] LABS: Cast Seen? NONE SEEN #/LPF (NONE SEEN); Crystals Seen? None Seen #/HPF (None Seen); Mucus Urine TRACE (NONE SEEN); Squamous Epithelial Cell Urine MODERATE #/LPF (NONE/RARE); Urine Culture Indicated YES
[2024-07-06] MEDS: 0.9 % SODIUM CHLORIDE 1,000 ML 1000 ML IV (11:32)
[2024-07-06] MEDS: MORPHINE SULFATE 4 MG/ML VIAL IV (11:32)
[2024-07-06] MEDS: ONDANSETRON PF 4 MG/2 ML VIAL IV ×3 (11:32→21:04)
[2024-07-06] MEDS: CIPROFLOXACIN IN 5 % DEXTROSE 400 MG/200 ML PREMIX 200 MG IV ×2 (12:23→23:53)
[2024-07-06 12:49] LABS: Alanine Aminotransferase 18 U/L (14-59); Alkaline Phosphatase 105 U/L (46-116); Aspartate Amino Transferase 11 U/L (15-37); Bilirubin Direct 0.1 mg/dL (0.0-0.2); Bilirubin Total 0.4 mg/dL (0.2-1.0)
[2024-07-06 12:50] LABS: Albumin Globulin Ratio 1.1; Amylase 58 U/L (25-115); Globulin 3.6 g/dL; Total Protein 7.6 g/dL (6.4-8.2)
[2024-07-06] MEDS: METRONIDAZOLE/SODIUM CHLORIDE 500 MG/100 ML PREMIX 100 MG IV ×3 (13:23→23:52)
--- OUTSIDE RECORDS SUMMARY | 2024-07-06 13:52 | XMS_ITS | CCD ---
Author Organization [facility] Care Team Providers Care Fur Feeder Name Role Phone TAMEZ, ZHANE W Unavailable Unavailable Hoy, Arleth Martinez Unavailable Unavailable TAMEZ, ZHANE W Unavailable Unavailable Hoy, Arleth Martinez Unavailable Unavailable TAMEZ, ZHANE W Unavailable Unavailable Hoy, Arleth Martinez Unavailable Unavailable TAMEZ, ZHANE W Unavailable Unavailable Hoy, Arleth Martinez Unavailable Unavailable TAMEZ, ZHANE W Unavailable Unavailable TamezZhane~ Unavailable Unavailabl e Hoy, Arleth Martinez Unavailable [...] Attending Unavailable Geanyi, Kevin Admitting Unavailable HOY, ARLETH Primary Care Unavailable HOY, ARLETH Referring Unavailable Madaying, Kevin Referring Unavailable Kevin [...] Primary Care Unavailable HOY, ARLETH Referring Unavailable MadayingKevin Attending Unavailable Geocing, Kevin [...] Physician ROSS ., DR ORTIZ Consulting Unavailable [facility] Primary Care Unavailable HAWKINS ., [...] Unavailable MD Arleth Acharya Primary Care Provider [phone] MD Arleth Acharya Referring Provider [phone] DO Calderón Attending Provider MD Arleth Acharya Primary Care Provider [phone] DO Antonio Attending Provider [phone] ARLETH ACHARYA M Primary Care Unavailable NETO CONNELL Attending Unav ailable KO, NETO VERDUZCO Attending Unav ailable KO, NETO VERDUZCO Referring Unav ailable HOY, ARLETH M Primary Care Unavailable DIANA HAWKINS Referring Unavailable HOY, ARLETH M Primary Care Unavailable HOY, ARLETH M Referring Unavailable HOY, ARLETH M Primary Care Unavailable HOY, ARLETH M Primary Care Unavailable LATONYAFELICE MEDRANOIMA Attending Unavailable HOY, ARLETH M Primary Care [...] Unavailable HOY, ARLETH M Primary Care Unavailable LATONYAFELICE MEDRANOIMA Attending Unavailable LATONYA, BRYAN Referring Unavailable HOY, ARLETH M Primary Care Unavailable Diana HAWKINS R Attending Unavailable HAWKINS, Diana R Attending Unavailable HAWKINSDiana R Attending Unavailable Hoy, Arleth Referring Unavailable [...] able DembosOsiris garnica Admitting Unavail able Hoy, Arleth M Referring Unavailable Hoy, Arleth M Primary Care Unavailable DAISY BROWN Referring Unavailable HOY, ARLETH M Primary Care Unavailable KHRIS BUCHANAN Attending [...] 04-09-20 17 Unknown (qualifier value) [facility] Opioid Agonists (2 sources) Meperidine; Translations: [meperidine] Drug Allergy 04-09-20 17 [facility] Prochlorperazine (2 sources) Prochlorperazi ne; Translations: [prochlorperaz ine] Drug Allergy 08-14-20 23 Hallucinations (finding) [facility] (8 sources) ketorolac; Translations: [Toradol] Drug Allergy 05-29-20 15 Unknown (qualifier value) [facility] Repository (6 sources) meperidine; Translations: [Demerol HCl] Drug Allergy [facility] Repository (2 sources) Meperidine Drug Allergy 08-01-20 13 [facility] Repository (1 source) [place] Drug Allergy [facility] Repository (5 sources) Ketorolac; Translations: [ketorolac] Drug Allergy 11-22-19 22 Unknown Reaction [facility] (5 sources) Meperidine; Translations: [meperidine] Drug Allergy 08-01-20 13 Unknown Reaction [facility] (4 sources) Prochlorperazi ne; Translations: [prochlorperaz ine] Drug Allergy 02-12-20 23 Hallucinations (finding) [facility] (1 source) No Known Medication Allergies; Translations: [No Known Medication Allergies] Propensity to adverse reactions (disorder) [facility] Repository Medications Current Medications Medication Drug Class(es) Dates Sig (Normalized) Sig (Original) acetaminophen 325 mg / HYDROcodone bitartrate 5 mg oral tablet (6 sources) Opioid Agonist Start: 09-24-2023 [place] 325 mg-5 mg oral tablet 1 tab(s), Oral, q12hr for pain, 20 tab(s), Refill(s) 0, 1 to 2 tabs every 4 to 6 hours as needed for pain, Pain, [id number], 167, cm, 09/13/23 12:07:00 EST, Height/Length Dosing, 70.5, kg, 09/13/23 12:07:00 EST, Weight Dosing Start Date: 09/24/23 Status: Ordered Start: 05-27-2023 take 1 tablet by mary th twice daily Hydrocodone-Acetaminophen Active 1 TAB P O Twice daily May 27, 2023 12:00am Start: 07-27-2022 [place] 325 mg-5 mg oral tablet 1 tab(s), Oral, BID Pain 8-10, 20 tab(s), Refill(s) 0, [facility] #[id number], 167, cm, 06/29/22 9:28:00 EDT, Height/Length Dosing, 69, kg, 06/29/22 9:28:00 EDT, Weight Dosing Start Date: 07/27/22 Status: Ordered Start: 06-29-2022 take 1 tablet by mary th every six hours [place] 325 mg-5 mg oral tablet tab(s), Or [...] q12hr, # 20 cap(s), Refills(s) 0, Pharmacy: [id number], 167, cm, 09/13/23 12:07:00 EST, Height/Length Dosing, [...] nursing home (current) use of aspirin; Translations: [CARE HOME (CURRENT) USE OF ASPIRIN] Onset: 06-03-2022 Episodic Other aftercare (2 sources) 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; Translations: [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) DRUG THERAPY] Onset: 08-12-2021 Episodic Other [...] Name Value Interpretation Reference Range Facility Refillon 07-03-2024 Refill [id number] Madyson Moore 1980 F Date Provider Department Center 07/03/2024 RUKHSANA ESPINOZA MP [facility] Family History Problem Relation Age of Onset Brain cancer Mother Breast cancer Sister Kidney cancer Maternal Grandmother Prostate cancer Paternal Grandfather Cancer Father Cancer Sister Family Status - Relation Status Age at Mother Sister Maternal Grandmother Paternal Grandfather Father Sister Reason for Visit and Comments: Med Refill [[id number]] [facility] Refillon 06-07-2024 Refill [id number] Madyson Moore 1980 F Date Provider Department Center 06/07/2024 RUKHSANA ESPINOZA MP PAIN [facility] Family History Problem Relation Age of Onset Brain cancer Mother Breast cancer Sister Kidney cancer Maternal Grandmother Prostate cancer Paternal Grandfather Cancer Father Cancer Sister Family Status - Relation Status Age at Mother Sister Maternal Grandmother Paternal Grandfather Father Sister Reason for Visit and Comments: Med Refill [[id number]] Normal [facility] Office Visiton 06-01-2024 Follow-up visit [id number] Madyson Moore 1980 F Date Provider Department Center 06/01/2024 Jojo-KHRIS BUCHANAN MP ORTHO MPORTHO Family History Problem Relation Age of Onset Brain cancer Mother Breast cancer Sister Kidney cancer Maternal Grandmother Prostate cancer Paternal Grandfather Cancer Father Cancer Sister Family Status - Relation Status Age at Mother Sister Maternal Grandmother Paternal Grandfather Father Sister Level of Service:38935 [place] OFFICE/OUTPATIENT ESTABLISHED LOW MDM 20 MIN Reason for Visit and Comments: New Patient [632] - Patient had 2nd knee replacement about a year ago, since then patient has been having increased pain and swelling, patient does see pain management and has stimulator in back Normal [facility] Refillon 05-09-2024 Refill [id number] Madyson Moore ma 1980 F Date Provider Department Center 05/09/2024 RUKHSANA ESPINOZA MP PAIN [facility] Family History Problem Relation Age of Onset Brain cancer Mother Breast cancer Sister Kidney cancer Maternal Grandmother Prostate cancer Paternal Grandfather Cancer Father Cancer Sister Family Status - Relation Status Age at Mother Sister Maternal Grandmother Paternal Grandfather Father Sister Reason for Visit and Comments: Med Refill [[id number]] Normal [facility] Refillon 04-07-2024 Refill [id number] Madyson Moore ma 1980 F Date Provider Department Center 04/07/2024 RUKHSANA ESPINOZA MP PAIN [facility] Family History Problem Relation Age of Onset Brain cancer Mother Breast cancer Sister Kidney cancer Maternal Grandmother Prostate cancer Paternal Grandfather Cancer Father Cancer Sister Family Status - Relation Status Age at Mother Sister Maternal Grandmother Paternal Grandfather Father Sister Reason for Visit and Comments: Med Refill [[id number]] Normal [facility] Nico 03-22-2024 L Specimen: [id number] Received: 03/23/24-2884 Status: SOUNaty Remoe Num: [id number] Spec Type: Cytology Subm Dr: Carissa Pettit MD Tissues: A FNA SLIDES NOPATH (RT PAROTID MASS) Procedures: HE/2, p63, Cyto Int and Re, p40, PAPSTN/9 Age/ Patient Sex Location Account Attending Physician Elvi Moore 43/F LABELL [id number] Carissa Pettit MD SPEC NUM: [id number] RECD: 03/23/24-140 STATUS: SOUT REQ NUM: [id number] JHONATAN: 03/22/24- SUBM DR: Carissa Pettit MD ENTERED: 03/23/24-[address]: Leann Amaya MD SPEC TYPE: Cytology DEPT: [facility] [place] ENTERED BY: [id number] RECV BY: [id number] ORDERED: HE/2, p63, Cyto Int and Re, [...] deeper level of sections for IHC CPT: 54218, 23086 Addendum Signed (signature on file) Luis F [...] [id number] Received: 03/23/24 Status: JOHNATHON Damon Num: [id number] Spec Type: Cytology Subm Dr: Carissa Pettit MD Tissues: A FNA SLIDES NOPATH (RT PAROTID MASS) Procedures: HE/2, p63, Cyto Int and Re, p40, PAPSTN/9 Patient: Owen Moorechristine Paiz [id number] (Continued) Specimen: [id number] Received: 03/23/24 (Continued) Pathological Diagnosis (Continued) Signed (signature on file) Luis F Roldan MD 03/29/24 1124 Specimen: [id number] Received: 03/23/24 Status: JOHNATHON Damon Num: [id number] Spec Type: Cytology Subm Dr: Carissa Pettit MD Tissues: A FNA SLIDES NOPATH (RT PAROTID MASS) Procedures: HE/2, p63, Cyto Int and Re, p40, PAPSTN/9 Patient: Elvi Moore [id number] (Continued) Specimen: [id number] Received: 03/23/24 (Continued) Pathological Diagnosis (Continued) ThinPrep smear, and is not contributory -There is also only very rare tiny small stromal fragments of scant cellularity in the cell block section, and is also not contributory for additional assessment -Overall findings is compatible with Sharon system Category 4A: Benign neoplasm, encompassing pleomorphic adenoma Gross Description Received is <1 ml very pale pink fixed in Cytolyt fluid for cytology said to have been obtained as right parotid mass. 1 ThinPrep smear and cell block preparations are prepared for microscopic examination. Also received are 8 spray fixed smeared slides to be stained pap for microscopic examination.(CC/ma) CPT Codes 21640 02446 Specimen: [id number] Received: 03/23/24 Status: JOHNATHON Damon Num: [id number] Spec Type: Cytology Subm Dr: Carissa Pettit MD Tissues: A FNA SLIDES NOPATH (RT PAROTID MASS) Procedures: HE/2, p63, Cyto Int and Re, p40, PAPSTN/9 Patient: Elvi Moore [id number] (Continued) Signed (signature on file) Walker-Jj Roldan MD 03/29/24 1124 Normal [facility] Follow-Upon 03-17-2024 Follow-Up [id number] Madyson Moore 1980 F Date Provider Department Center 03/17/2024 170-RUKHSANA MILLER MP PAIN Medical [facility]avi Family History Problem Relation Age of Onset Brain cancer Mother Breast cancer Sister Kidney cancer Maternal Grandmother Prostate cancer Paternal Grandfather Cancer Father Cancer Sister Family Status - Relation Status Age at Mother Sister Maternal Grandmother Paternal Grandfather Father Sister Level of Service:74391 [place] OFFICE/OUTPATIENT ESTABLISHED LOW MDM 20 MIN Reason for Visit and Comments: Knee Pain [108382] - Left knee pain Normal [facility] Screenson 03-08-2024 Screens [id number] Normal [facility] CT ABDOMEN AND PELVIS WO [...] Schmidt MD on 03/06/2024 11:46 PM Normal [facility] Patient Educationon 03-07-20 24 Patient Education Nephrology [...] ? 8 oz (237 mL) of milk, dlyxmdm-kkretgzsmudq-yahn y milk, and calcium-fortifiedfruit juice. Calcium-fortified means [...] Chadian chard. ? Peanuts. ? Potato chips, georgian fries, and baked potatoes with skin on. ? Nuts and nut products. ? Chocolate. ? If you regularly take a diuretic medicine, make sure to eat at least 1 or 2 servings of fruits or vegetables that are high in potassium each day. These include: ? Avocado. ? Banana. ? [place], prune, carrot, or tomato juice. ? Baked [...] fish oil, or vitamin B6. ? Take nmsa-bpv-ctuawpd and prescription medicines only as told by your health care provider. These include supplements. What foods sh (more content not included)... Normal [facility] RAD - MISCon 03-07-2024 RAD - MIS [id number] Normal [facility] Urology Office/Clinic Noteon 03-07-2024 Urology Office/Clinic [...] 10/12/23. Stone analysis: 60% CaOx Di, 35% [place]. 5% Phos Hydoxyl. KUB 03/03/24 [facility] - [...] Contact Information STEPH AVITIA, ELIZABETH Yi, URL [address] [place] [address] [phone] Additional Instructions: 1 yr w/ KUB Patient Education Dietary Guidelines to Help Prevent Kidney Stones Documentation recorded by the joy Hardy accurately reflects the services(s) I performed and decisions made by me. Authenticated by Elizabeth Vaca PA-C on 03/07/2024 16:31:26. IKandice, personally scribed for Elizabeth Vaca PA-C on [...] 100 mg= 1 tab(s), Oral multivitamin, Daily [place] 325 mg-5 mg oral tablet, 1 tab(s), [...] virus vaccine, inactivated 07/29/2022 Recorded SARS-CoV-2 (COVID-19) mRNAMUL.[id number] 07/29/2022 Recorded SARS-CoV-2 (COVID-19) mRNA BNT-162b2 vax 10/08/2021 Recorded SARS-CoV-2 (COVID-19) mRNA BNT-162b2 vax 01/30/2021 Recorded SARS-CoV-2 (COVID-19) mRNA BNT-162b2 vax 01/09/2021 Recorded influenza virus vaccine, inactivated 07/11/2020 R (more content not included)... Normal [facility] Comment on above: Result Comment: Elec tronically Signed By: ELIZABETH VACA PA-C\.br\Date and Time Signed: 03/07/24 16:31 EDT\.br\Electronically Co-Signed By: Kandice Hardy\.br\Date and Time Co-Signed: 03/07/24 16:30 EDT CBC AND AUTO DIFFon 03-06-20 ABSOLUTE BASOPHIL 0.0 X10E9/L Normal 0.0-0.2 [facility] Comment on above: Performed By: #### C BCA, CMP ####[facility] ([id number])[address] [place] [address] ABSOLUTE NEUTROPHIL 4.5 X10E9/L Normal 1.5-6.6 [facility] Comment on above: Performed By: #### C BCA, CMP ####[facility] ([id number])[address] [place] [address] 37011 Basophils/100 WBC (Bld) 0.3 % Normal [facility] Comment on above: Performed By: #### C BCA, CMP ####[facility] ([id number])[address] [place] [address] 32273 Eosinophils (Bld) [#/Vol] 0.0 10*3/uL Normal 0.0-0.4 [facility] Comment on above: Performed By: #### C BCA, CMP ####[facility] ([id number])[address] [place] [address] 61018 Eosinophils/100 WBC (Bld) 0.6 % Normal [facility] Comment on above: Performed By: #### C BCA, CMP ####[facility] ([id number])[address] [place] [address] 39081 Erythrocyte distribution width (RBC) [Ratio] 14.6 % Normal 11.5-15.0 [facility] Comment on above: Performed By: #### C BCA, CMP ####[facility] ([id number])[address] [place] [address] 67821 Hematocrit (Bld) [Volume fraction] 39.4 % Normal 35-47 [facility] Comment on above: Performed By: #### C GALEN, CMP ####[facility] ([id number])[address] [place] [address] 78320 Hemoglobin (Bld) [Mass/Vol] 13.1 g/dL Normal 11.7-15.5 [facility] Comment on above: Performed By: #### C GALEN, CMP ####[facility] ([id number])[address] [place] [address] 16524 Lymphocytes (Bld) [#/Vol] 2.0 10*3/uL Normal 1.0-3.5 [facility] Comment on above: Performed By: #### C GALEN, CMP ####[facility] ([id number])[address] [place] [address] 33638 Lymphocytes/100 WBC (Bld) 28.1 % Normal [facility] Comment on above: Performed By: #### C GALEN, CMP ####[facility] ([id number])[address] [place] [address] 51325 MCH (RBC) [Entitic mass] 28.2 pg Normal 27-34 [facility] Comment on above: Performed By: #### C BCA, CMP ####[facility] ([id number])[address] [place] [address] 64702 MCHC (RBC) [Mass/Vol] 33.2 g/dL Normal 32-36 [facility] Comment on above: Performed By: #### C BCA, CMP ####[facility] ([id number])[address] [place] [address] 04025 MCV (RBC) [Entitic vol] 85 fL Normal 80-100 [facility] Comment on above: Performed By: #### C BCA, CMP ####[facility] ([id number])[address] [place] [address] 68173 Monocytes (Bld) [#/Vol] 0.6 10*3/uL Normal 0-0.9 [facility] Comment on above: Performed By: #### C BCA, CMP ####[facility] ([id number])[address] [place] [address] 05298 Monocytes/100 WBC (Bld) 8.3 % Normal [facility] Comment on above: Performed By: #### C GALEN, CMP ####[facility] ([id number])[address] [place] [address] 69806 Neutrophils/100 WBC (Bld) 62.7 % Normal [facility] Comment on above: Performed By: #### C GALEN, CMP ####[facility] ([id number])[address] [place] [address] [place] [address] Platelet mean volume (Bld) [Entitic vol] 8.3 fL Normal 7-12 [facility] Comment on above: Performed By: #### C GALEN, CMP ####[facility] ([id number])[address] [place] [address] 65432 Platelets (Bld) [#/Vol] 279 10*3/uL Normal 150-450 [facility] Comment on above: Performed By: #### C GALEN, CMP ####[facility] ([id number])[address] [place] [address] [place] [address] RBC COUNT 4.63 X10E12/L Normal 3.80-5.20 [facility] Comment on above: Performed By: #### C BCA, CMP ####[facility] ([id number])[address] [place] [address] 19039 WBC (Bld) [#/Vol] 7.2 10*3/uL Normal 4.0-11.0 [facility] Comment on above: Performed By: #### C BCA, CMP ####[facility] ([id number])[address] [place] [address], [place] [address] COMPREHENSIVE METABOLIC PANE Nico 03-06-2024 Albumin [Mass/Vol] 4.4 g/dL Normal 3.2-5.3 [facility] Comment on above: Performed By: #### C BCA, CMP ####[facility] ([id number])[address] [place] [address] [place] [address] ALP [Catalytic activity/Vol] 96 U/L Normal 39-130 [facility] Comment on above: Performed By: #### C BCA, CMP ####[facility] ([id number])[address] [place] [address] [place] [address] ALT [Catalytic activity/Vol] 16 U/L Normal 0-31 [facility] Comment on above: Performed By: #### C BCA, CMP ####[facility] ([id number])[address] [place] [address] [place] [address] Anion gap [Moles/Vol] 6 mmol/L Normal 5-15 [facility] Comment on above: Performed By: #### C BCA, CMP ####[facility] ([id number])[address] [place] [address] [place] [address] AST [Catalytic activity/Vol] 22 U/L Normal 0-41 [facility] Comment on above: Performed By: #### C BCA, CMP ####[facility] ([id number])[address] [place] [address] [place] [address] Bilirubin [Mass/Vol] 0.4 mg/dL Normal 0.3-1.2 [facility] Comment on above: Performed By: #### C BCA, CMP ####[facility] ([id number])[address] [place] [address] [place] [address] Calcium [Mass/Vol] 8.7 mg/dL Normal 8.5-10.5 [facility] Comment on above: Performed By: #### C BCA, CMP ####[facility] ([id number])[address] [place] [address] Chloride [Moles/Vol] 107 mmol/L Normal 98-109 [facility] Comment on above: Performed By: #### C BCA, CMP ####[facility] ([id number])[address] [place] [address]72 CO2 [Moles/Vol] 26 mmol/L Normal 22-32 [facility] Comment on above: Performed By: #### C BCA, CMP ####[facility] ([id number])[address] [place] [address] 81247 Creatinine [Mass/Vol] 0.64 mg/dL Normal 0.40-1.00 [facility] Comment on above: Result Comment: METH OD TRACEABLE TO IDMS STANDARD Performed By: #### C BCA, CMP ####[facility] ([id number])[address] [place] [address] 38318 eGFR (CKD-EPI) NON-RACE DEPENDENT >90 Normal >59 [facility] Comment on above: Result Comment: Reported eGFR is based on the CKD-EPI 2020 equation that does not use a race coefficient. Performed By: #### C BCA, CMP ####[facility] ([id number])[address] [place] [address] [place] [address] Glucose [Mass/Vol] 88 mg/dL Normal 65-99 [facility] Comment on above: Performed By: #### C BCA, CMP ####[facility] ([id number])[address] [place] [address]43 Potassium [Moles/Vol] 3.6 mmol/L Normal 3.5-5.0 [facility] Comment on above: Performed By: #### C BCA, CMP ####[facility] ([id number])[address] [place] [address] 40430 Protein [Mass/Vol] 8.0 g/dL Normal 6.0-8.0 [facility] Comment on above: Performed By: #### C BCA, CMP ####[facility] ([id number])[address] [place] [address] 006[address] Sodium [Moles/Vol] 139 mmol/L Normal 134-146 [facility] Comment on above: Performed By: #### C BCA, CMP ####[facility] ([id number])[address] [place] [address] 78941 Urea nitrogen [Mass/Vol] 14 mg/dL Normal 5-23 [facility] Comment on above: Performed By: #### C BCA, CMP ####[facility] ([id number])[address] [place] [address] 31831 URINE CULTUREon 03-06-2024 Bacteria identified Cx Nom (U) SPECIMEN NOTES URINE RECEIVED WITHOUT PRESERVATIVE CULTURE RESULTS 10-50,000 ORGANISMS/mL NORMAL UROGENITAL ALE Normal [facility] Comment on above: Performed By: #### 6 30-4 ####[facility] ([id number])[address] [facility] [address] URN MACROSCOPIC NURon 2023 BILIRUBIN JUNIOR Negative Normal NEG [facility] Comment on above: Performed By: #### N UM ####[facility] ([id number])[address] [place] [address] BLOOD/HGB JUNIOR Large Abnormal NEG [facility] Comment on above: Performed By: #### N UM ####[facility] ([id number])[address] [place] [address] GLUCOSE JUNIOR Negative Normal NEG [facility] Comment on above: Performed By: #### N UM ####[facility] ([id number])[address] [place] [address], [place] [address] KETONES JUNIOR Negative Normal NEG [facility] Comment on above: Performed By: #### N UM ####[facility] ([id number])[address] [place] [address] [place] [address] LEUKOCYTE ESTERASE JUNIOR Negative Normal NEG [facility] Comment on above: Performed By: #### N UM ####[facility] ([id number])[address] [place] [address], [place] [address] NITRITE JUNIOR Negative Normal NEG [facility] Comment on above: Performed By: #### N UM ####[facility] ([id number])[address] [place] [address] [place] [address] PH JUNIOR 7.0 Normal 5.0-8.5 [facility] Comment on above: Performed By: #### N UM ####[facility] ([id number])[address] [place] [address] PROTEIN JUNIOR 30 mg/dL Abnormal NEG [facility] Comment on above: Performed By: #### N UM ####[facility] ([id number])[address] [place] [address], [place] [address] SPECIFIC GRAVITY JUNIOR 1.025 Normal 1.003-1.035 [facility] Comment on above: Performed By: #### N UM ####[facility] ([id number])[address] [place] [address] [place] [address] UROBILINOGEN JUNIOR 1.0 eu/dL Normal <1.1 [facility] Comment on above: Performed By: #### N UM ####[facility] ([id number])[address] [place] [address] [place] [address] Lab Reportson 02-22-2024 Lab Reports [id number]#1.00TIFF Normal [facility] Lab Reportson 02-18-2024 Lab Reports [id number]#1.00TIFF Normal [facility] Lab Reportson 02-17-2024 Lab Reports [id number]#1.00TIFF Normal [facility] 24 HR PHOSPHORUS,URINEon URINE PHOSPHORUS 0.8 g/24h Normal 0.4-1.3 [facility] Comment on above: Performed By: #### U PO4 ####[facility] ([id number])[address] [address] 24 HR UR MAGNESIUMon 024 URINE MAGNESIUM 116 mg/24h Normal 72-182 [facility] Comment on above: Performed By: #### U CA, UCR, UMAG, DARLEEN, UUA ####[facility] ([id number])0 [facility] [address] [place] [address] 24 HR URINE CALCIUMon 2023 URINE CALCIUM 134 mg/24h Normal 50-250 [facility] Comment on above: Performed By: #### U CA, UCR, UMAG, DARLEEN, UUA ####[facility] ([id number])[address] [address] 24 HR URINE CREATININEon URINE CREATININE 0.88 g/24h Normal 0.80-1.80 [facility] Comment on above: Performed By: #### U CA, UCR, UMAG, DARLEEN, UUA ####[facility] ([id number])[address] [address] 24 HR URINE SODIUMon 024 URINE SODIUM 189 mmol/24h Normal 40-220 [facility] Comment on above: Performed By: #### U CA, UCR, UMAG, DARLEEN, UUA ####[facility] ([id number])[address] [facility], [address] [address] 24 HR URINE URIC ACIDon URINE URIC ACID 0.4 g/24h Normal 0.3-0.8 [facility] Comment on above: Performed By: #### U CA, UCR, UMAG, DARLEEN, UUA ####[facility] ([id number])[address] [facility], [address], [place] [address] BLOOD UREA NITROGENon 2023 Urea nitrogen [Mass/Vol] 9 mg/dL Normal 5-23 [facility] Comment on above: Performed By: #### C BCA, CMP #### [facility] ([id number]) [address] [place] [address] CALCIUMon 02-15-2024 Calcium [Mass/Vol] 9.0 mg/dL Normal 8.5-10.5 [facility] Comment on above: Performed By: #### C BCA, CMP #### [facility] ([id number]) [address] [place] [address] CARBON DIOXIDEon 02-15-2024 CO2 [Moles/Vol] 22 mmol/L Normal 22-32 [facility] Comment on above: Performed By: #### C BCA, CMP #### [facility] ([id number]) [address] [place] [address] CHLORIDEon 02-15-2024 Chloride [Moles/Vol] 111 mmol/L High 98-109 [facility] Comment on above: Performed By: #### C BCA, CMP #### [facility] ([id number]) [address] [place] [address] CITRIC ACID URINEon 02-15-20 24 CITRIC ACID,24H UR 550 mg/d Normal 320-1240 [facility] Comment on above: Performed By: #### 3 094-0, 25200-3, 0, 2028-06, PAPER SHEETER, 2951- 2, 2777-1, 3084-1, 2731-8 ####[facility] ([id number])[address] [facility], [address] [address]#### CITACU ####[facility] ([id number])[address] [place] [address] CITRIC ACID,UR,VOL 611 mg/L Normal [facility] Comment on above: Performed By: #### 3 094-0, 04791-2, 0, 2028-06, PAPER SHEETER, 2951- 2, 2777-1, 3084-1, 2731-8 ####[facility] ([id number])[address] [address]#### CITACU ####[facility] ([id number])[address] [place] [address] CITRIC/CREAT RATIO 593 mg/g Normal >=150 [facility] Comment on above: Result Comment: NOTE INTERPRETIVE INFORMATION: Citric Acid, Urine This test was developed and its performance characteristics determined by [facility]. It has not been cleared or approved by the US Food and Drug Administration. This test was performed in a CLIA certified laboratory and is intended for clinical purposes. Performed By: [facility] [address] [place] [address] Classification Clerk: Luca Mosquera MD, PhD CLIA Number: [id number] Performed By: #### 3 094-0, 09246-9, 2074-0, 2028-06, PAPER SHEETER, 2951-2, 2777-1, 3084-1, 2731-8 ####[facility] ([id number])[address] [address]#### CITACU ####[facility] ([id number])[address] [place] [address] CREATININE,24H URINE 927 mg/d Normal 700-1600 [facility] Comment on above: Performed By: #### 3 094-0, 82918-6, 0, 2028-06, PAPER SHEETER, 2951- 2, 2777-1, 3084-1, 273-8 ####[facility] ([id number])[address], [address] [place] [address]#### CITACU ####[facility] ([id number])[address] [place] [address] CREATININE,UR,VOL 103 mg/dL Normal [facility] Comment on above: Performed By: #### 3 094-0, 11981-3, , 2028-06, PAPER SHEETER, 2951- 2, 2777-1, 3084-1, 273-8 ####[facility] ([id number])[address], [address] [place] [address]#### CITACU ####[facility] ([id number])[address] [place] [address] HOURS COLLECTED 24 Normal [facility] Comment on above: Performed By: #### 3 094-0, 05914-6, 0, 2028-06, PAPER SHEETER, 2951- 2, 2777-1, 3084-1, 273-8 ####[facility] ([id number])[address], [address] [place] [address]#### CITACU ####[facility] ([id number])[address] [place] [address]49 TOT VOLUME-24H URINE 900 Normal [facility] Comment on above: Performed By: #### 3 094-0, 69726-0, 2074-0, 2028-06, PAPER SHEETER, 2951- 2, 2777-1, 3084-1, 273-8 ####[facility] ([id number])[address] [facility], [address] [place] [address]#### CITACU ####[facility] ([id number])[address] [place] [address] CREATININEon 02-15-2024 Creatinine [Mass/Vol] 0.70 mg/dL Normal 0.40-1.00 [facility] Comment on above: Result Comment: METH OD TRACEABLE TO IDMS STANDARD Performed By: #### C BCA, CMP #### [facility] ([id number]) [address] [place] [address] eGFR (CKD-EPI) NON-RACE DEPENDENT >90 Normal >59 [facility] Comment on above: Result Comment: Reported eGFR is based on the CKD-EPI 2020 equation that does not use a race coefficient. Performed By: #### C BCA, CMP #### [facility] ([id number]) [address] [place] [address] OXALATE, TOTAL URINEon 02-14 CREATININE,24H URINE 945 mg/d Normal 700-1600 [facility] Comment on above: Result Comment: NOTE Performed By: [facility] [address] [place] [address] Classification Clerk: Luca Mosquera MD, PhD CLIA Number: [id number] Performed By: #### O XALTU ####[facility] ([id number])[address] [place] [address] CREATININE,UR,VOL 105 mg/dL Normal [facility] Comment on above: Performed By: #### O XALTU ####[facility] ([id number])[address] [place] [address] HOURS COLLECTED 24 Normal [facility] Comment on above: Performed By: #### O XALTU ####[facility] ([id number])[address] [place] [address]853 OXALATE, PER VOLUME 32 mg/L Normal [facility] Comment on above: Performed By: #### O VU ####[facility] ([id number])[address] [place] [address]26 OXALATE,URINE/24H 29 mg/d Normal 13-40 [facility] Comment on above: Result Comment: NOTE REFERENCE INTERVAL: Oxalate, Urine - per 24h Access complete set of age- and/or gender-specific reference intervals for this test in the [employer] Laboratory Test Directory ([employer]). This test was developed and its performance characteristics determined by [facility]. It has not been cleared or approved by the US Food and Drug Administration. This test was performed in a CLIA certified laboratory and is intended for clinical purposes. Performed By: #### O VU ####[facility] ([id number])[address] [place] [address] TOT VOLUME-24H URINE 900 Normal [facility] Comment on above: Performed By: #### O VU ####[facility] ([id number])[address] [place] [address] PHOSPHORUSon 02-15-2024 Phosphate [Mass/Vol] 3.7 mg/dL Normal 2.4-4.9 [facility] Comment on above: Performed By: #### C BCA, CMP #### [facility] ([id number]) [address] [place] [address]952 Parathyrin.intact [Mass/Vol] on 02-15-2024 PTH INTACT 65 pg/mL Normal 12-88 [facility] Comment on above: Performed By: #### C BCA, CMP #### [facility] ([id number]) [address] [place] [address] SODIUMon 02-15-2024 Sodium [Moles/Vol] 141 mmol/L Normal 134-146 [facility] Comment on above: Performed By: #### C BCA, CMP #### [facility] ([id number]) [address] [place] [address]694 URIC ACIDon 02-15-2024 Urate [Mass/Vol] 3.6 mg/dL Normal 2.6-7.2 [facility] Comment on above: Performed By: #### C BCA, CMP #### [facility] ([id number]) [address] [place] [address] URINE VOLUME AND TIMEon TIME 24 h Normal [facility] Comment on above: Performed By: #### C BCA, CMP #### [facility] ([id number]) [address] [place] [address] 93353 TOTAL VOLUME 900 mL Normal [facility] Comment on above: Performed By: #### C BCA, CMP #### [facility] ([id number]) [address] [place] [address]58 TIME 24 h Normal [facility] Comment on above: Performed By: #### U PO4 ####[facility] ([id number])[address] [address] Performed By: #### O XALTU ####[facility] ([id number])[address] [place] [address] [place] [address] Performed By: #### U CA, UCR, UMAG, DARLEEN, UUA ####[facility] ([id number])[address] [address] TOTAL VOLUME 900 mL Normal [facility] Comment on above: Performed By: #### U PO4 ####[facility] ([id number])[address] [address] Performed By: #### O XALTU ####[facility] ([id number])[address] [place] [address], [place] [address] Performed By: #### U CA, UCR, UMAG, DARLEEN, UUA ####[facility] ([id number])[address] [place] [address], [address] [place] [address] Orders Onlyon 02-04-2024 Orders Only [id number] Madyson Moore ma 1980 F Date Provider Department Center 02/04/2024 RUKHSANA ESPINOZA [facility] Family History Problem Relation Age of Onset Brain cancer Mother Breast cancer Sister Kidney cancer Maternal Grandmother Prostate cancer Paternal Grandfather Cancer Father Cancer Sister Family Status - Relation Status Age at Mother Sister Maternal Grandmother Paternal Grandfather Father Sister Normal [facility] Orders Onlyon 01-19-2024 Orders Only [id number] Madyson Moore ma 1980 F Date Provider Department Center 01/19/2024 RUKHSANA ESPINOZA [facility] Family History Problem Relation Age of Onset Brain cancer Mother Breast cancer Sister Kidney cancer Maternal Grandmother Prostate cancer Paternal Grandfather Cancer Father Cancer Sister Family Status - Relation Status Age at Mother Sister Maternal Grandmother Paternal Grandfather Father Sister Normal [facility] 36on 01-06-2024 36 I called patient and left a voicemail and advice to be seen in ED. Normal [facility] XR ankle LT min 3V*on 2023 XR ankle LT min 3V* [facility] Main [address] [address] XRay Report Signed Patient: Elvi Moore MR#: [id number] 779 : 1980 Acct:[id number] Age/Sex: 43 / F ADM Date: 01/06/24 Loc: XDUCLY Room: Type: [facility] Attending Dr: Rianna Antonio APRN Copies [...] Solange Brown M.D.01/06/2024 6:47 PM Dictation Location: [facility]02 Transcribed By: [facility] 01/06/241846 Dictated By: Solange Brown MD 01/06/241845 Signed By: 01/06/241846 Normal [facility] Follow-Upon 12-24-2023 Follow-Up [id number] Madyson Moore 1980 F Date Provider Department Center 12/24/2023 170-RUKHSANA MILLER [facility] Family History Problem Relation Age of Onset Brain cancer Mother Breast cancer Sister Kidney cancer Maternal Grandmother Prostate cancer Paternal Grandfather Cancer Father Cancer Sister Family Status - Relation Status Age at Mother Sister Maternal Grandmother Paternal Grandfather Father Sister Level of Service:62575 [place] OFFICE/OUTPATIENT ESTABLISHED LOW MDM 20 MIN Reason for Visit and Comments: Follow-up [237793] - Chief complaint : L knee Normal [facility] CBC AND AUTO DIFFon 12-10-19 24 ABSOLUTE BASOPHIL 0.0 X10E9/L Normal 0.0-0.2 [facility] Comment on above: Performed By: #### C BCA, CMP #### [facility] ([id number]) [address] [place] [address] ABSOLUTE NEUTROPHIL 6.4 X10E9/L Normal 1.5-6.6 [facility] Comment on above: Performed By: #### C BCA, CMP #### [facility] ([id number]) [address] [place] [address] 88764 Basophils/100 WBC (Bld) 0.3 % Normal [facility] Comment on above: Performed By: #### C BCA, CMP #### [facility] ([id number]) [address] [place] [address] 61525 Eosinophils (Bld) [#/Vol] 0.0 10*3/uL Normal 0.0-0.4 [facility] Comment on above: Performed By: #### C GALEN, CMP #### [facility] ([id number]) [address] [place] [address] 16856 Eosinophils/100 WBC (Bld) 0.4 % Normal [facility] Comment on above: Performed By: #### C GALEN, CMP #### [facility] ([id number]) [address] [place] [address] 66341 Erythrocyte distribution width (RBC) [Ratio] 13.7 % Normal 11.5-15.0 [facility] Comment on above: Performed By: #### C GALEN, CMP #### [facility] ([id number]) [address] [place] [address] 71922 Hematocrit (Bld) [Volume fraction] 41.2 % Normal 35-47 [facility] Comment on above: Performed By: #### C GALEN, CMP #### [facility] ([id number]) [address] [place] [address] 34841 Hemoglobin (Bld) [Mass/Vol] 13.7 g/dL Normal 11.7-15.5 [facility] Comment on above: Performed By: #### C GALEN, CMP #### [facility] ([id number]) [address] [place] [address] 48967 Lymphocytes (Bld) [#/Vol] 2.8 10*3/uL Normal 1.0-3.5 [facility] Comment on above: Performed By: #### C GALEN, CMP #### [facility] ([id number]) [address] [place] [address] 26074 Lymphocytes/100 WBC (Bld) 28.3 % Normal [facility] Comment on above: Performed By: #### C GALEN, CMP #### [facility] ([id number]) [address] [place] [address] 19250 MCH (RBC) [Entitic mass] 29.8 pg Normal 27-34 [facility] Comment on above: Performed By: #### C BCA, CMP #### [facility] ([id number]) [address] [place] [address] 23622 MCHC (RBC) [Mass/Vol] 33.4 g/dL Normal 32-36 [facility] Comment on above: Performed By: #### C GALEN, CMP #### [facility] ([id number]) [address] [place] [address] 79570 MCV (RBC) [Entitic vol] 89 fL Normal 80-100 [facility] Comment on above: Performed By: #### C GALEN, CMP #### [facility] ([id number]) [address] [place] [address] 93991 Monocytes (Bld) [#/Vol] 0.6 10*3/uL Normal 0-0.9 [facility] Comment on above: Performed By: #### C GALEN, CMP #### [facility] ([id number]) [address] [place] [address] 55479 Monocytes/100 WBC (Bld) 5.9 % Normal [facility] Comment on above: Performed By: #### C GALEN, CMP #### [facility] ([id number]) [address] [place] [address] 92842 Neutrophils/100 WBC (Bld) 65.1 % Normal [facility] Comment on above: Performed By: #### C GALEN, CMP #### [facility] ([id number]) [address] [place] [address] 76207 Platelet mean volume (Bld) [Entitic vol] 7.1 fL Normal 7-12 [facility] Comment on above: Performed By: #### C BCA, CMP #### [facility] ([id number]) [address] [place] [address] 56944 Platelets (Bld) [#/Vol] 329 10*3/uL Normal 150-450 [facility] Comment on above: Performed By: #### C BCA, CMP #### [facility] ([id number]) [address] [place] [address] 38812 RBC COUNT 4.60 X10E12/L Normal 3.80-5.20 [facility] Comment on above: Performed By: #### C BCA, CMP #### [facility] ([id number]) [address] [place] [address] 35415 WBC (Bld) [#/Vol] 9.8 10*3/uL Normal 4.0-11.0 [facility] Comment on above: Performed By: #### C BCA, CMP #### [facility] ([id number]) [address] [place] [address] 49936 COMPREHENSIVE METABOLIC PANE Nico 12-10-2023 Albumin [Mass/Vol] 4.6 g/dL Normal 3.2-5.3 [facility] Comment on above: Performed By: #### C BCA, CMP #### [facility] ([id number]) [address] [place] [address] 16527 ALP [Catalytic activity/Vol] 80 U/L Normal 39-130 [facility] Comment on above: Performed By: #### C BCA, CMP #### [facility] ([id number]) [address] [place] [address] 30588 ALT [Catalytic activity/Vol] 23 U/L Normal 0-31 [facility] Comment on above: Performed By: #### C BCA, CMP #### [facility] ([id number]) [address] [place] [address] 78828 Anion gap [Moles/Vol] 6 mmol/L Normal 5-15 [facility] Comment on above: Performed By: #### C BCA, CMP #### [facility] ([id number]) [address] [place] [address] 35238 AST [Catalytic activity/Vol] 20 U/L Normal 0-41 [facility] Comment on above: Performed By: #### C BCA, CMP #### [facility] ([id number]) [address] [place] [address] 12599 Bilirubin [Mass/Vol] 0.3 mg/dL Normal 0.3-1.2 [facility] Comment on above: Performed By: #### C BCA, CMP #### [facility] ([id number]) [address] [place] [address] 04550 Calcium [Mass/Vol] 8.5 mg/dL Normal 8.5-10.5 [facility] Comment on above: Performed By: #### C BCA, CMP #### [facility] ([id number]) [address] [place] [address] 15727 Chloride [Moles/Vol] 105 mmol/L Normal 98-109 [facility] Comment on above: Performed By: #### C BCA, CMP #### [facility] ([id number]) [address] [place] [address] 37845 CO2 [Moles/Vol] 27 mmol/L Normal 22-32 [facility] Comment on above: Performed By: #### C BCA, CMP #### [facility] ([id number]) [address] [place] [address] 85835 Creatinine [Mass/Vol] 0.59 mg/dL Normal 0.40-1.00 [facility] Comment on above: Result Comment: METH OD TRACEABLE TO IDMS STANDARD Performed By: #### C BCA, CMP #### [facility] ([id number]) [address] [place] [address] 82309 eGFR (CKD-EPI) NON-RACE DEPENDENT >90 Normal >59 [facility] Comment on above: Result Comment: Reported eGFR is based on the CKD-EPI 2020 equation that does not use a race coefficient. Performed By: #### C BCA, CMP #### [facility] ([id number]) [address] [place] [address] 44893 Glucose [Mass/Vol] 100 mg/dL High 65-99 [facility] Comment on above: Performed By: #### C BCA, CMP #### [facility] ([id number]) [address] [place] [address] 52582 Potassium [Moles/Vol] 3.5 mmol/L Normal 3.5-5.0 [facility] Comment on above: Performed By: #### C BCA, CMP #### [facility] ([id number]) [address] [place] [address] 45859 Protein [Mass/Vol] 7.8 g/dL Normal 6.0-8.0 [facility] Comment on above: Performed By: #### C BCA, CMP #### [facility] ([id number]) [address] [place] [address] [id number] Sodium [Moles/Vol] 138 mmol/L Normal 134-146 [facility] Comment on above: Performed By: #### C BCA, CMP #### [facility] ([id number]) [address] [place] [address] 45103 Urea nitrogen [Mass/Vol] 19 mg/dL Normal 5-23 [facility] Comment on above: Performed By: #### C BCA, CMP #### [facility] ([id number]) [address] [place] [id number] ABDOMEN AND PELVIS W CONT on [...] Gates MD on 12/10/2023 2:08 AM Normal [facility] HCG ( test) Ql (U)o n 12-10-2023 Beta HCG ( test) Ql (U) Negative Normal NEG [facility] Comment on above: Performed By: #### C GALEN, CMP #### [facility] ([id number]) [address] [place] [address] 13055 LIPASEon 12-10-2023 Lipase [Catalytic activity/Vol] 98 U/L High 17-40 [facility] Comment on above: Performed By: #### C BCA, CMP #### [facility] ([id number]) [address] [place] [address] [phone] Lactate (P jaime) [Moles/Vol]o n 12-10-2023 LACTATE W/REFLEX 0.6 mmol/L Normal 0.4-2.0 [facility] Comment on above: Result Comment: Result did not trigger repeat Lactate, re-order if needed. Performed By: #### C BCA, CMP #### [facility] ([id number]) [address] [place] [address] 02546 TROPONIN Ion 12-10-2023 Troponin I.cardiac [Mass/Vol] 0.02 ng/mL Normal 0.00-0.04 [facility] Comment on above: Performed By: #### C BCA, CMP #### [facility] [facility] ([id number]) [address] [place] [address] 57558 URN MACROSCOPIC NURon 2023 BILIRUBIN JUNIOR Negative Normal NEG [facility] Comment on above: Performed By: #### C BCA, CMP #### [facility] ([id number]) [address] [place] [address] 64831 BLOOD/HGB JUNIOR Large Abnormal NEG [facility] Comment on above: Performed By: #### C BCA, CMP #### [facility] ([id number]) [address] [place] [address] 16395 GLUCOSE JUNIOR Negative Normal NEG [facility] Comment on above: Performed By: #### C BCA, CMP #### [facility] ([id number]) [address] [place] [address] [place] [address] KETONES JUNIOR Trace Abnormal NEG [facility] Comment on above: Performed By: #### C BCA, CMP #### [facility] ([id number]) [address] [place] [address] [place] [address] LEUKOCYTE ESTERASE JUNIOR Negative Normal NEG [facility] Comment on above: Performed By: #### C BCA, CMP #### [facility] ([id number]) [address] [place] [address] 78574 NITRITE JUNIOR Negative Normal NEG [facility] Comment on above: Performed By: #### C BCA, CMP #### [facility] ([id number]) [address] [place] [address] 43811 PH JUNIOR 6.0 Normal 5.0-8.5 [facility] Comment on above: Performed By: #### C BCA, CMP #### [facility] ([id number]) [address] [place] [address] PROTEIN JUNIOR Negative Normal NEG [facility] Comment on above: Performed By: #### C BCA, CMP #### [facility] ([id number]) [address] [place] [address] 25793 SPECIFIC GRAVITY JUNIOR >=1.030 Normal 1.003-1.035 [facility] Comment on above: Performed By: #### C BCA, CMP #### [facility] ([id number]) [address] [place] [address] 34529 UROBILINOGEN JUNIOR 0.2 eu/dL Normal <1.1 [facility] Comment on above: Performed By: #### C BCA, CMP #### [facility] ([id number]) [address] [place] [address] 52281 XR CHEST 1 VWon 12-10-2023 XR CHEST [...] Gates MD on 12/10/2023 1:59 AM Normal [facility] Orders Onlyon 11-23-2023 Orders Only [id number] Madyson Moore 1980 F Date Provider Department Center 11/23/2023 RUKHSANA ESPINOZA [facility] Family History Problem Relation Age of Onset Brain cancer Mother Breast cancer Sister Kidney cancer Maternal Grandmother Prostate cancer Paternal Grandfather Cancer Father Cancer Sister Family Status - Relation Status Age at Mother Sister Maternal Grandmother Paternal Grandfather Father Sister Normal [facility] H. pylori Ag IA Ql (Stl)on 0 11-19-2023 H. PYLORI ANTG STOOL See Below Normal [facility] Comment on above: Result Comment: NOTE TEST RESULT FLAG UNIT REF.RANGE ---- EIA Test See Below Negative for H. Pylori antigen by EIA H.PYLORI EIA RESULT Negative for Helicobacter pylori antigen by EIA SOURCE: STOOL Test Performed By: [facility] [address] [place] [address] Classification Clerk: Anurag Seth III, M.D. CLIA #[id number] Performed By: #### C BCA, [facility] #### [facility] ([id number]) [address] [place] [address] 49780 Gastrin [Mass/Vol]on 024 GASTRIN 62.9 pg/mL Normal <115.0 [facility] Comment on above: Result Comment: NOTE The Gastrin test was performed using the Siemens Immulite chemiluminescent immunometric method. Results obtained with different assay methods or kits cannot be used interchangeably. Test Performed By: [place] [address] Classification Clerk: Anurag Seth III, M.D. CLIA #[id number] Performed By: #### 2 333-3 #### [facility] ([id number]) [address] [place] [address] 01225 Transfer Inon 11-05-2023 Transfer In [id number] Scotty Cuellar [facility] Follow-Upon 10-28-2023 Follow-Up [id number] Madyson Moore 1980 F Date Provider Department Center 10/28/2023 RUKHSANA ESPINOZA [facility] Family History Problem Relation Age of Onset Brain cancer Mother Breast cancer Sister Kidney cancer Maternal Grandmother Prostate cancer Paternal Grandfather Cancer Father Cancer Sister Family Status - Relation Status Age at Mother Sister Maternal Grandmother Paternal Grandfather Father Sister Level of Service:84692 [place] OFFICE/OUTPATIENT ESTABLISHED LOW MDM 20 MIN Reason for Visit and Comments: Knee Pain [[id number]] - left Normal [facility] 36on 10-20-2023 36 Approving, but needs appt for additional refills. Normal [facility] Orders Onlyon 10-20-2023 Orders Only [id number] Blody,Tabat ma 1980 F Date Provider Department Center 10/20/202393114-EZEUMITCHELL APARICIO MP [facility] Medical [facility] Family History Problem Relation Age of Onset Brain cancer Mother Breast cancer Sister Kidney cancer Maternal Grandmother Prostate cancer Paternal Grandfather Cancer Father Cancer Sister Family Status - Relation Status Age at Mother Sister Maternal Grandmother Paternal Grandfather Father Sister Normal [facility] Orders Onlyon 10-19-2023 Orders Only [id number] Ludydy,Tabat ma 1980 F Date Provider Department Center 10/19/202366147-FLDPIY, ELAINA [facility] RHEUM Arturo Heal Family History Problem Relation Age of Onset Brain cancer Mother Breast cancer Sister Kidney cancer Maternal Grandmother Prostate cancer Paternal Grandfather Cancer Father Cancer Sister Family Status - Relation Status Age at Mother Sister Maternal Grandmother Paternal Grandfather Father Sister Normal [facility] 36on 10-18-2023 36 Patient is calling f or medication refill to be sent to pharmacy. Thank you Normal [facility] BASIC METABOLIC PANLon 10-14 Anion gap [Moles/Vol] 10 mmol/L Normal 5-15 [facility] Comment on above: Performed By: #### B MP, LIVR, CBCA, 3040-3 #### [facility] ([id number]) [address] [place] [address], [place] [address] Calcium [Mass/Vol] 8.6 mg/dL Normal 8.5-10.5 [facility] Comment on above: Performed By: #### B MP, LIVR, CBCA, 3039-3 #### [facility] ([id number]) [address] [place] [address] 17688 Chloride [Moles/Vol] 100 mmol/L Normal 98-109 [facility] Comment on above: Performed By: #### B MP, LIVR, CBCA, 0-3 #### [facility] ([id number]) [address] [place] [address] 82487 CO2 [Moles/Vol] 27 mmol/L Normal 22-32 [facility] Comment on above: Performed By: #### B MP, LIVR, CBCA, 3040-3 #### [facility] ([id number]) [address] [place] [address] 47360 Creatinine [Mass/Vol] 0.76 mg/dL Normal 0.40-1.00 [facility] Comment on above: Result Comment: METH OD TRACEABLE TO IDMS STANDARD Performed By: #### B MP, LIVR, CBCA, 3040-3 #### [facility] ([id number]) [address] [place] [address] 48085 eGFR (CKD-EPI) NON-RACE DEPENDENT >90 Normal >59 [facility] Comment on above: Result Comment: Reported eGFR is based on the CKD-EPI 2020 equation that does not use a race coefficient. Performed By: #### B MP, LIVR, CBCA, 0-3 #### [facility] ([id number]) [address] [place] [address] 26715 Glucose [Mass/Vol] 84 mg/dL Normal 65-99 [facility] Comment on above: Performed By: #### B MP, LIVR, CBCA, 3040-3 #### [facility] ([id number]) [address] [place] [address] 96458 Potassium [Moles/Vol] 3.5 mmol/L Normal 3.5-5.0 [facility] Comment on above: Performed By: #### B MP, LIVR, CBCA, 0-3 #### [facility] ([id number]) [address] [place] [address] 45139 Sodium [Moles/Vol] 137 mmol/L Normal 134-146 [facility] Comment on above: Performed By: #### B MP, LIVR, CBCA, 3039-3 #### [facility] ([id number]) [address] [place] [address] 02027 Urea nitrogen [Mass/Vol] 16 mg/dL Normal 5-23 [facility] Comment on above: Performed By: #### B MP, LIVR, CBCA, 3 #### [facility] ([id number]) [address] [place] [address] 92367 CBC AND AUTO DIFFon 10-14-19 24 ABSOLUTE BASOPHIL 0.0 X10E9/L Normal 0.0-0.2 [facility] Comment on above: Performed By: #### B MP, LIVR, CBCA, 3039-3 #### [facility] ([id number]) [address] [place] [address] 99063 ABSOLUTE NEUTROPHIL 3.6 X10E9/L Normal 1.5-6.6 [facility] Comment on above: Performed By: #### B MP, LIVR, CBCA, 0-3 #### [facility] ([id number]) [address] [place] [address] 47928 Basophils/100 WBC (Bld) 0.2 % Normal [facility] Comment on above: Performed By: #### B MP, LIVR, CBCA, 0-3 #### [facility] ([id number]) [address] [place] [address] 32254 Eosinophils (Bld) [#/Vol] 0.1 10*3/uL Normal 0.0-0.4 [facility] Comment on above: Performed By: #### B MP, LIVR, CBCA, 3039-12 #### [facility] ([id number]) [address] [place] [address] 97795 Eosinophils/100 WBC (Bld) 1.7 % Normal [facility] Comment on above: Performed By: #### B MP, LIVR, CBCA, 3039-12 #### [facility] ([id number]) [address] [place] [address] 70362 Erythrocyte distribution width (RBC) [Ratio] 14.0 % Normal 11.5-15.0 [facility] Comment on above: Performed By: #### B MP, LIVR, CBCA, 3039-12 #### [facility] ([id number]) [address] [place] [address] 61729 Hematocrit (Bld) [Volume fraction] 35.0 % Normal 35-47 [facility] Comment on above: Performed By: #### B MP, LIVR, CBCA, 3039-12 #### [facility] ([id number]) [address] [place] [address] 68719 Hemoglobin (Bld) [Mass/Vol] 11.8 g/dL Normal 11.7-15.5 [facility] Comment on above: Performed By: #### B MP, LIVR, CBCA, 3039-12 #### [facility] ([id number]) [address] [place] [address] 83038 Lymphocytes (Bld) [#/Vol] 3.0 10*3/uL Normal 1.0-3.5 [facility] Comment on above: Performed By: #### B MP, LIVR, CBCA, 3039-12 #### [facility] ([id number]) [address] [place] [address] 97366 Lymphocytes/100 WBC (Bld) 41.6 % Normal [facility] Comment on above: Performed By: #### B MP, LIVR, CBCA, 3039-12 #### [facility] ([id number]) [address] [place] [address] 81266 MCH (RBC) [Entitic mass] 29.6 pg Normal 27-34 [facility] Comment on above: Performed By: #### B MP, LIVR, CBCA, 3039-12 #### [facility] ([id number]) [address] [place] [address] 76343 MCHC (RBC) [Mass/Vol] 33.8 g/dL Normal 32-36 [facility] Comment on above: Performed By: #### B MP, LIVR, CBCA, 3039-12 #### [facility] ([id number]) [address] [place] [address] 79955 MCV (RBC) [Entitic vol] 88 fL Normal 80-100 [facility] Comment on above: Performed By: #### B MP, LIVR, CBCA, 3039-12 #### [facility] ([id number]) [address] [place] [address] 35958 Monocytes (Bld) [#/Vol] 0.4 10*3/uL Normal 0-0.9 [facility] Comment on above: Performed By: #### B MP, LIVR, CBCA, 3039-12 #### [facility] ([id number]) [address] [place] [address] 25733 Monocytes/100 WBC (Bld) 5.6 % Normal [facility] Comment on above: Performed By: #### B MP, LIVR, CBCA, 3039-12 #### [facility] ([id number]) [address] [place] [address] 47918 Neutrophils/100 WBC (Bld) 50.9 % Normal [facility] Comment on above: Performed By: #### B MP, LIVR, CBCA, 0-3 #### [facility] ([id number]) [address] [place] [address] 95007 Platelet mean volume (Bld) [Entitic vol] 7.5 fL Normal 7-12 [facility] Comment on above: Performed By: #### B MP, LIVR, CBCA, 3040-3 #### [facility] ([id number]) [address] [place] [address] 80215 Platelets (Bld) [#/Vol] 256 10*3/uL Normal 150-450 [facility] Comment on above: Performed By: #### B MP, LIVR, CBCA, 0-3 #### [facility] ([id number]) [address] [place] [address] 12331 RBC COUNT 3.99 X10E12/L Normal 3.80-5.20 [facility] Comment on above: Performed By: #### B MP, LIVR, CBCA, 3040-3 #### [facility] ([id number]) [address] [place] [address] 09186 WBC (Bld) [#/Vol] 7.1 10*3/uL Normal 4.0-11.0 [facility] Comment on above: Performed By: #### B MP, LIVR, CBCA, 3040-3 #### [facility] ([id number]) [address] [place] [address] 01966 ABSOLUTE BASOPHIL 0.0 X10E9/L Normal 0.0-0.2 [facility] Comment on above: Performed By: #### C BCA, CMP #### [facility] ([id number]) [address] [place] [address] 41590 ABSOLUTE NEUTROPHIL 4.5 X10E9/L Normal 1.5-6.6 [facility] Comment on above: Performed By: #### C BCA, CMP #### [facility] ([id number]) [address] [place] [address] 85744 Basophils/100 WBC (Bld) 0.2 % Normal [facility] Comment on above: Performed By: #### C BCA, CMP #### [facility] ([id number]) [address] [place] [address] 91350 Eosinophils (Bld) [#/Vol] 0.1 10*3/uL Normal 0.0-0.4 [facility] Comment on above: Performed By: #### C GALEN, CMP #### [facility] ([id number]) [address] [place] [address] 23770 Eosinophils/100 WBC (Bld) 1.1 % Normal [facility] Comment on above: Performed By: #### C GALEN, CMP #### [facility] ([id number]) [address] [place] [address] 57202 Erythrocyte distribution width (RBC) [Ratio] 13.8 % Normal 11.5-15.0 [facility] Comment on above: Performed By: #### C GALEN, CMP #### [facility] ([id number]) [address] [place] [address] 25888 Hematocrit (Bld) [Volume fraction] 36.9 % Normal 35-47 [facility] Comment on above: Performed By: #### C GALEN, CMP #### [facility] ([id number]) [address] [place] [address] 12377 Hemoglobin (Bld) [Mass/Vol] 12.5 g/dL Normal 11.7-15.5 [facility] Comment on above: Performed By: #### C GALEN, CMP #### [facility] ([id number]) [address] [place] [address] 94033 Lymphocytes (Bld) [#/Vol] 3.5 10*3/uL Normal 1.0-3.5 [facility] Comment on above: Performed By: #### C BCA, CMP #### [facility] ([id number]) [address] [place] [address] 89547 Lymphocytes/100 WBC (Bld) 40.4 % Normal [facility] Comment on above: Performed By: #### C BCA, CMP #### [facility] ([id number]) [address] [place] [address] 25081 MCH (RBC) [Entitic mass] 29.2 pg Normal 27-34 [facility] Comment on above: Performed By: #### C BCA, CMP #### [facility] ([id number]) [address] [place] [address] 51236 MCHC (RBC) [Mass/Vol] 33.8 g/dL Normal 32-36 [facility] Comment on above: Performed By: #### C GALEN, CMP #### [facility] ([id number]) [address] [place] [address] 48944 MCV (RBC) [Entitic vol] 86 fL Normal 80-100 [facility] Comment on above: Performed By: #### C BCA, CMP #### [facility] ([id number]) [address] [place] [address] 61865 Monocytes (Bld) [#/Vol] 0.5 10*3/uL Normal 0-0.9 [facility] Comment on above: Performed By: #### C BCA, CMP #### [facility] ([id number]) [address] [place] [address] 45066 Monocytes/100 WBC (Bld) 6.2 % Normal [facility] Comment on above: Performed By: #### C BCA, CMP #### [facility] ([id number]) [address] [place] [address] 66008 Neutrophils/100 WBC (Bld) 52.1 % Normal [facility] Comment on above: Performed By: #### C BCA, CMP #### [facility] ([id number]) [address] [place] [address] 96478 Platelet mean volume (Bld) [Entitic vol] 7.8 fL Normal 7-12 [facility] Comment on above: Performed By: #### C BCA, CMP #### [facility] ([id number]) [address] [place] [address] 51476 Platelets (Bld) [#/Vol] 293 10*3/uL Normal 150-450 [facility] Comment on above: Performed By: #### C BCA, CMP #### [facility] ([id number]) [address] [place] [address] 59839 RBC COUNT 4.26 X10E12/L Normal 3.80-5.20 [facility] Comment on above: Performed By: #### C BCA, CMP #### [facility] ([id number]) [address] [place] [address] 31280 WBC (Bld) [#/Vol] 8.7 10*3/uL Normal 4.0-11.0 [facility] Comment on above: Performed By: #### C BCA, CMP #### [facility] ([id number]) [address] [place] [address] 11366 COMPREHENSIVE METABOLIC PANE Nico 10-14-2023 Albumin [Mass/Vol] 4.4 g/dL Normal 3.2-5.3 [facility] Comment on above: Performed By: #### C BCA, CMP #### [facility] ([id number]) [address] [place] [address] 51351 ALP [Catalytic activity/Vol] 104 U/L Normal 39-130 [facility] Comment on above: Performed By: #### C BCA, CMP #### [facility] ([id number]) [address] [place] [address] 65464 ALT [Catalytic activity/Vol] 14 U/L Normal 0-31 [facility] Comment on above: Performed By: #### C BCA, CMP #### [facility] ([id number]) [address] [place] [address] 58294 Anion gap [Moles/Vol] 9 mmol/L Normal 5-15 [facility] Comment on above: Performed By: #### C BCA, CMP #### [facility] ([id number]) [address] [place] [address] 14008 AST [Catalytic activity/Vol] 18 U/L Normal 0-41 [facility] Comment on above: Performed By: #### C BCA, CMP #### [facility] ([id number]) [address] [place] [address] 90711 Bilirubin [Mass/Vol] 0.8 mg/dL Normal 0.3-1.2 [facility] Comment on above: Performed By: #### C BCA, CMP #### [facility] ([id number]) [address] [place] [address] 50562 Calcium [Mass/Vol] 9.0 mg/dL Normal 8.5-10.5 [facility] Comment on above: Performed By: #### C BCA, CMP #### [facility] ([id number]) [address] [place] [address] 11744 Chloride [Moles/Vol] 102 mmol/L Normal 98-109 [facility] Comment on above: Performed By: #### C BCA, CMP #### [facility] ([id number]) [address] [place] [address] 50272 CO2 [Moles/Vol] 28 mmol/L Normal 22-32 [facility] Comment on above: Performed By: #### C BCA, CMP #### [facility] ([id number]) [address] [place] [address] 84830 Creatinine [Mass/Vol] 0.74 mg/dL Normal 0.40-1.00 [facility] Comment on above: Result Comment: METH OD TRACEABLE TO IDMS STANDARD Performed By: #### C BCA, CMP #### [facility] ([id number]) [address] [place] [address] 41265 eGFR (CKD-EPI) NON-RACE DEPENDENT >90 Normal >59 [facility] Comment on above: Result Comment: Reported eGFR is based on the CKD-EPI 2020 equation that does not use a race coefficient. Performed By: #### C BCA, CMP #### [facility] ([id number]) [address] [place] [address] 91549 Glucose [Mass/Vol] 98 mg/dL Normal 65-99 [facility] Comment on above: Performed By: #### C BCA, CMP #### [facility] ([id number]) [address] [place] [address] 54809 Potassium [Moles/Vol] 3.7 mmol/L Normal 3.5-5.0 [facility] Comment on above: Performed By: #### C BCA, CMP #### [facility] ([id number]) [address] [place] [address] 68267 Protein [Mass/Vol] 7.9 g/dL Normal 6.0-8.0 [facility] Comment on above: Performed By: #### C BCA, CMP #### [facility] ([id number]) [address] [place] [address] 99899 Sodium [Moles/Vol] 139 mmol/L Normal 134-146 [facility] Comment on above: Performed By: #### C BCA, CMP #### [facility] ([id number]) [address] [place] [address] 86772 Urea nitrogen [Mass/Vol] 17 mg/dL Normal 5-23 [facility] Comment on above: Performed By: #### C [facility] #### [facility] ([id number]) [address] [place] [address], [place] [address] CT ABDOMEN AND PELVIS W CONT on [...] Awad MD on 10/14/2023 12:24 AM Normal [facility] CT ABDOMEN AND PELVIS WO CON Ton [...] Awad MD on 10/13/2023 11:00 PM Normal [facility] LIPASEon 10-14-2023 Lipase [Catalytic activity/Vol] 42 U/L High 17-40 [facility] Comment on above: Performed By: #### B MP, LIVR, CBCA, 3040-3 #### [facility] ([id number]) [address] [place] [address], [place] [address] LIVER PANELon 01-04-2024 Albumin [Mass/Vol] 4.1 g/dL Normal 3.2-5.3 [facility] Comment on above: Performed By: #### B MP, LIVR, CBCA, 3039-12 #### [facility] ([id number]) [address] [place] [id number] ALP [Catalytic activity/Vol] 99 U/L Normal 39-130 [facility] Comment on above: Performed By: #### B MP, LIVR, CBCA, 3039-12 #### [facility] ([id number]) [address] [place] [address] 21834 ALT [Catalytic activity/Vol] 14 U/L Normal 0-31 [facility] Comment on above: Performed By: #### B MP, LIVR, CBCA, 3039-12 #### [facility] ([id number]) [address] [place] [address] 94333 AST [Catalytic activity/Vol] 20 U/L Normal 0-41 [facility] Comment on above: Performed By: #### B MP, LIVR, CBCA, 3039-12 #### [facility] ([id number]) [address] [place] [address] 18085 Bilirubin [Mass/Vol] 0.8 mg/dL Normal 0.3-1.2 [facility] Comment on above: Performed By: #### B MP, LIVR, CBCA, 3039-12 #### [facility] ([id number]) [address] [place] [address] Bilirubin.direct [Mass/Vol] 0.1 mg/dL Normal 0.0-0.4 [facility] Comment on above: Performed By: #### B MP, LIVR, CBCA, 3 #### [facility] ([id number]) [address] [place] [address] 49196 Protein [Mass/Vol] 7.4 g/dL Normal 6.0-8.0 [facility] Comment on above: Performed By: #### B MP, LIVR, CBCA, 3040-3 #### [facility] ([id number]) [address] [place] [address]1247 Pre-Certification Formon Pre-Certification Form [id number]#1.00TIFF Normal [facility] URN MACROSCOPIC NURon 2023 BILIRUBIN JUNIOR Negative Normal NEG [facility] Comment on above: Performed By: #### N UM #### [facility] ([id number]) [address] [place] [address] 04715 BLOOD/HGB JUNIOR Large Abnormal NEG [facility] Comment on above: Performed By: #### N UM #### [facility] ([id number]) [address] [place] [address] 72485 GLUCOSE JUNIOR Negative Normal NEG [facility] Comment on above: Performed By: #### N UM #### [facility] ([id number]) [address] [place] [address] 21492 KETONES JUNIOR Negative Normal NEG [facility] Comment on above: Performed By: #### N UM #### [facility] ([id number]) [address] [place] [address] 99165 LEUKOCYTE ESTERASE JUNIOR Trace Abnormal NEG [facility] Comment on above: Performed By: #### N UM #### [facility] ([id number]) [address] [place] [address] 94870 NITRITE JUNIOR Negative Normal NEG [facility] Comment on above: Performed By: #### N UM #### [facility] ([id number]) [address] [place] [address] 32837 PH JUNIOR 7.0 Normal 5.0-8.5 [facility] Comment on above: Performed By: #### N UM #### [facility] ([id number]) [address] [place] [address] 97880 PROTEIN JUNIOR Negative Normal NEG [facility] Comment on above: Performed By: #### N UM #### [facility] ([id number]) [address] [place] [address] 12990 SPECIFIC GRAVITY JUNIOR 1.025 Normal 1.003-1.035 [facility] Comment on above: Performed By: #### N UM #### [facility] ([id number]) [address] [place] [address] 35708 UROBILINOGEN JUNIOR 1.0 eu/dL Normal <1.1 [facility] Comment on above: Performed By: #### N UM #### [facility] ([id number]) [address] [place] [address] 18250 Consent for Procedure/Surger yon 10-12-2023 Consent for Procedure/Surgery [id number]#1.00TIFF Normal [facility] Consent for Treatmenton Consent for Treatment [id number]#1.00TIFF Normal [facility] Insurance Correspondenceon 0 10-12-2023 Insurance Correspondence [id number]#1.00TIFF Normal [facility] IntraOperative Documentson 0 10-12-2023 IntraOperative Documents [id number]#1.00TIFF Normal [facility] IntraOperative Documents [id number]#1.00TIFF Normal [facility] Main OR Intraoperative Recor don 10-12-2023 Main OR Intraoperative Record IntraOp Document Type FTURO Summary Primary Physician: ROSS GENTILE, Diana Goss Finalized Date/Time: 10/12/23 10:37:58 Pt. Name: ELVI MOORE /Sex: 1980 Female Med Rec #: [id number] Physician: Diana HAWKINS MD [facility] #: [id number] Pt. Type: O Room/Bed: / Admit/Disch: 10/12/23 09:34:46 - Institution: Case Times FTURO Entry 1 Patient Times In Room 10/12/23 10:29:00 Out Room 10/12/23 10:43:00 Procedure Times Start 10/12/23 10:32:00 Stop 10/12/23 10:38:00 Anesthesia Times Last Modified By: Ashish ROBLEDO, TRACEYOR, Kesha 10/12/23 10:35:54 Case Attendance FTURO Entry 1 Entry 2 Entry 3 Case Attendee ROSS GENTILE, Diana Lowe, Asia Hinojosa RN, TRACEYOR, Kesha Role Performed Surgeon - Primary Scrub - Primary Field Collector - Primary Time In 10/12/23 10:29:00 10/12/23 10:29:00 10/12/23 10:29:00 Time Out 10/12/23 10:43:00 10/12/23 10:43:00 10/12/23 10:43:00 Procedure CYSTOSCOPY LOCAL WITH CYSTOSCOPY LOCAL WITH CYSTOSCOPY LOCAL WITH STENT REMOVAL(Left) STENT REMOVAL(Left) STENT REMOVAL(Left) Comments Last Modified By: Ashish ROBLEDO, CNOR, Ashish ROBLEDO, TRACEYOR, Ashish ROBLEDO, TRACEYOR, Kesha [...] - Clean-Contaminated Last Modified By: Ashish ROBLEDO, TRACEYOR, Kesha 10/12/23 10:35:56 General Case Data FTURO [...] PLACEMENT Last Modified By: JATIN Hinojosa RN, Ruthann 10/12/23 10:30:12 Post-Care Text: The patient is [...] Position Verified Availability Equipment, Medication Time Out ROSS GENTILE, Diana Goss, Verified (If Participants Asia Lowe, Applicable) JATIN Hinojsoa RN, Ruthann Time Out Complete 10/12/23 10:30:00 [...] JATIN Hinojosa RN, Ruthann 10/12/23 10:37 Normal [facility] Main OR Preoperative Recordo n 10-12-2023 Main OR Preoperative Record Holding Area Document Type FTURO Summary Primary Physician: Diana HAWKINS MD Finalized Date/Time: 10/12/23 10:32:11 Pt. Name: ELVI MOORE Izabel /Sex: 1980 Female Med Rec #: [id number] Physician: Diana HAWKINS MD Financial #: [id number] Pt. Type: O Room/Bed: / Admit/Disch: 10/12/23 [...] 10/12/23 09:49 Vicki Figueroa RN 10/12/23 09:54 Ashish ROBLEDO, Kesha STEINER 10/12/23 10:32 [facility] Operative Reporton Operative Report Patient: DIEGO [...] procedure well and was subsequently discharged home. [facility] Comment on above: Result Comment: Elec tronically Signed By: Diana HAWKINS MD\.br\Date and Time Signed: 10/12/23 10:38 EST Outpatient Surgery Discharge Instructionon 10-12-2023 Outpatient Surgery Discharge Instruction [id number]#1.00TIFF [facility] Formson 10-08-2023 Forms [id number]#1.00TIFF [facility] ED Note-Physicianon 10-07-20 ED Note-Physician [id number]#1.00TIFF [facility] Formson 10-07-2023 Forms [id number]#1.00TIFF Normal [facility] Lab Reportson 10-07-2023 Lab Reports [id number]#1.00TIFF Normal [facility] RAD - CT Reporton 10-07-2023 RAD - CT Report [id number]#1.00TIFF Normal [facility] Lab Reportson 09-27-2023 Lab Reports [id number]#1.00TIFF Normal [facility] OARRS Reporton 09-27-2023 OARRS Report [id number]#1.00TIFF [facility] Pre-Certification Formon Pre-Certification Form [id number]#1.00TIFF Normal [facility] Provider Letteron 09-27-2023 Provider Letter (Inserted Image. Darleen ble to display) September 27, [address] [place] [address] : 1980 To Whom It May Concern, Please excuse above patient from work. Date of Illness: From: 09/16/2023 To: 09/28/2023 May Return to Work On:09/29/2023 Restrictions: No Restrictions Comments: Any questions, please call our office Sincerely, [facility] [address], [place] [address] [facility] Provider Letter (Inserted Image. Darleen ble to display) September 27, [address] [place] [address] : 1980 To Whom It May Concern, Please excuse above patient from work. Date of Illness: From: 09/16/2023 To: 09/28/2023 May Return to Work On: 09/29/2023 Restrictions: No Restrictios Comments: _ Sincerely, [facility] [address] [place] [address] [facility] Formson 09-22-2023 Forms [id number]#1.00TIFF [facility] RAD - MISCon 09-21-2023 RAD - MISC [id number]#1.00TIFF [facility] Provider Letteron 09-20-2023 Provider Letter (Inserted Image. Darleen ble to display) September 20, 2023 [address] [place] [address] : 1980 To Whom It May Concern, Please excuse above patient from work. Date of Illness: From: 09/16/23 To: 09/21/23 May Return to Work On: 09/22/23 Restrictions: N/A Comments: Patient may return to work 09/22/23. Patient had a surgical procedure done 09/16/[address] Diana Hawkins. Sincerely, [facility] ECG 12-Leadon 09-17-2023 ECG 12-Lead [id number]#1.00TIFF [facility] Lab Reportson 09-17-2023 Lab Reports [id number]#1.00TIFF [facility] RAD - CT Reporton 09-17-2023 RAD - CT Report [id number]#1.00TIFF [facility] RAD - MISCon 09-17-2023 RAD - MISC [id number]#1.00TIFF [facility] RAD - Ultrasound Reporton RAD - Ultrasound Report [id number]#1.00TIFF [facility] Operative Reporton Operative Report [id number]#1.00TIFF Normal [facility] ED Note-Physicianon 09-14-20 ED Note-Physician [id number]#1.00TIFF Normal [facility] Insurance Correspondenceon 1 11-15-2022 Insurance Correspondence [id number]#1.00TIFF Normal [facility] RAD - CT Reporton 09-14-2023 RAD - CT Report [id number]#1.00TIFF Normal [facility] RAD - CT Report [id number]#1.00TIFF Normal [facility] Ambulatory Visit Summaryon 1 11-14-2022 Ambulatory Visit Summary ELVI MOORE :1980 Visit Date:09/13/2023 Ambulatory Visit Instructions Your Diagnosis Kidney stone Gross hematuria Left flank pain Tests Performed Urnls Dip Stick Auto w/o Microscopy POC 30945 Your Care Team Attending Physician - ROSS GENTILE, Diana Goss Primary Care Physician - Baltazar GENTILE, Arleth Referring Physician - Arleth Acharya MD This [...] sched cysto Where: [facility] [address], [place] [address] [phone] Medications What How Much When Instructions Unchanged [...] Urnls Dip Stick Auto w/o Microscopy POC 78135 (09/13/2023) Bilirubin Urine Dipstick - Negative Blood Urine Dipstick - 2+ Moderate Glucose Urine Dipstick - Negative Ketones Urine Dipstick - Negative Leukocytes Urine Dipstick - Negative Nitrite Urine Dipstick - Negative Protein Urine Dipstick - Negative Specific [place] Urine Dipstick - 1.025 Urine Appearance Urine [...] including vitamins, herbs, eye drops, creams, and ytus-zhu-ebjkktz medicines. ? Any problems you or family members have had with anesthetic medicines. ? Any blood disorders you have. ? Any surgeries you have had. ? Any m (more content not included)... [facility] Consent for Procedure/Surger yon 09-13-2023 Consent for Procedure/Surgery [id number]#1.00TIFF [facility] 36on 09-08-2023 36 Patient seen in the ER for a large kidney stone. Was prescribed Oxycodone medication for pain discomfort. Patient would like to know if this will be ok for her to get from pharmacy. Please advise [phone]. Thank you Normal [facility] Consultation Noteon 08-23-20 Consultation Note [id number]#1.00TIFF Normal [facility] Lab Reportson 08-23-2023 Lab Reports [id number]#1.00TIFF [facility] Consultation Noteon 08-20-20 Consultation Note [id number]#1.00TIFF Normal [facility] Follow-Upon 08-19-2023 Follow-Up [id number] Madyson Moore 1980 F Date Provider Department Center 08/19/2023 CURLY ROSE MP PAIN [facility] Family History Problem Relation Age of Onset Brain cancer Mother Breast cancer Sister Kidney cancer Maternal Grandmother Prostate cancer Paternal Grandfather Cancer Father Cancer Sister Family Status - Relation Status Age at Mother Sister Maternal Grandmother Paternal Grandfather Father Sister Level of Service:73978 [place] OFFICE/OUTPATIENT ESTABLISHED MOD MDM 30-39 MIN Reason for Visit and Comments: Follow-up [723264] - Chronic Left Knee Pain Normal [facility] Follow-Upon 07-20-2023 Follow-Up [id number] Madyson Moore 1980 F Date Provider Department Center 07/20/2023 CURLY ROSE MP PAIN [facility] Family History Problem Relation Age of Onset Brain cancer Mother Breast cancer Sister Kidney cancer Maternal Grandmother Prostate cancer Paternal Grandfather Cancer Father Cancer Sister Family Status - Relation Status Age at Mother Sister Maternal Grandmother Paternal Grandfather Father Sister Level of Service:50392 [place] OFFICE/OUTPATIENT ESTABLISHED MOD MDM 30-39 MIN Reason for Visit and Comments: Follow-up [10991211] - Left knee pain Normal [facility] Orders Onlyon 07-07-2023 Orders Only [id number] Madyson Moore 1980 F Date Provider Department Center 07/07/2023 RUKHSANA ESPINOZA MP PAIN [facility] Family History Problem Relation Age of Onset Brain cancer Mother Breast cancer Sister Kidney cancer Maternal Grandmother Prostate cancer Paternal Grandfather Cancer Father Cancer Sister Family Status - Relation Status Age at Mother Sister Maternal Grandmother Paternal Grandfather Father Sister Normal [facility] Ferritinon 05-28-2023 Ferritin [Mass/Vol] 4.9 ng/mL Low 11.0-306.8 [facility] Comment on above: Result Comment: PERF ORMED BY: [facility] [address] [place] [address] PATHOLOGIST CHIEF NURSING EXECUTIVE MELISSA WAGNER M.D. Performed By: #### S CAN CBC, JANESSA, FE and TIBC #### [facility] [address] Iron and TIBC Profileon 05-11 % Iron Saturation 2.5 % Low 20-50 [facility] Comment on above: Performed By: #### S CAN CBC, JANESSA, FE and TIBC #### [address] Iron [Mass/Vol] 13 ug/dL Low 50-212 [facility] Comment on above: Performed By: #### S CAN CBC, JANESSA, FE and TIBC #### [address] Total Iron Binding Capacity 517 ug/dL High 255-450 [facility] Comment on above: Performed By: #### S CAN CBC, JANESSA, FE and TIBC #### [address] Transferrin [Mass/Vol] 369 mg/dL High 203-362 [facility] Comment on above: Performed By: #### S CAN CBC, JANESSA, FE and TIBC #### [address] Scan and CBCon 05-28-2023 Anisocytosis Ql (Bld) Marked Normal [facility] Comment on above: Performed By: #### S CAN CBC, JANESSA, FE and TIBC #### [address] Basophils (Bld) [#/Vol] 0.0 10*3/uL Normal 0.0-0.2 [facility] Comment on above: Performed By: #### S CAN CBC, JANESSA, FE and TIBC #### [place] [address] [place] Basophils/100 WBC (Bld) 0.3 % Normal . [facility] Comment on above: Performed By: #### S CAN CBC, JANESSA, FE and TIBC #### [address] Eosinophils (Bld) [#/Vol] 0.0 10*3/uL Normal 0.0-0.45 [facility] Comment on above: Performed By: #### S CAN CBC, JANESSA, FE and TIBC #### [address] Eosinophils/100 WBC (Bld) 0.6 % Normal . [facility] Comment on above: Performed By: #### S CAN CBC, JANESSA, FE and TIBC #### [address] Erythrocyte distribution width (RBC) [Ratio] 20.1 % High 11.9-15.3 [facility] Comment on above: Performed By: #### S CAN CBC, JANESSA, FE and TIBC #### [address] Hematocrit (Bld) [Volume fraction] 28.6 % Low 34.0-46.4 [facility] Comment on above: Performed By: #### S CAN CBC, JANESSA, FE and TIBC #### [address] Hemoglobin (Bld) [Mass/Vol] 8.9 g/dL Low 11.8-15.4 [facility] Comment on above: Performed By: #### S CAN CBC, JANESSA, FE and TIBC #### [address] Hypochromasia Moderate Normal [facility] Comment on above: Performed By: #### S CAN CBC, JANESSA, FE and TIBC #### [address] Lymphocytes (Bld) [#/Vol] 2.6 10*3/uL Normal 1.00-4.8 [facility] Comment on above: Performed By: #### S CAN CBC, JANESSA, FE and TIBC #### [address] Lymphocytes/100 WBC (Bld) 37.7 % Normal . [facility] Comment on above: Performed By: #### S CAN CBC, JANESSA, FE and TIBC #### [address] MCH (RBC) [Entitic mass] 20.5 pg Low 24.7-34.3 [facility] Comment on above: Performed By: #### S CAN CBC, JANESSA, FE and TIBC #### [address] MCV (RBC) [Entitic vol] 65.8 fL Low 80-100 [facility] Comment on above: Performed By: #### S CAN CBC, JANESSA, FE and TIBC #### [address] Mean Corpuscular HGB Conc 31.1 g/dL Low 32.0-35.0 [facility] Comment on above: Performed By: #### S CAN CBC, JANESSA, FE and TIBC #### [address] Microcytosis Marked Normal [facility] Comment on above: Performed By: #### S CAN CBC, JANESSA, FE and TIBC #### [address] Monocytes (Bld) [#/Vol] 0.4 10*3/uL Normal 0.0-0.8 [facility] Comment on above: Performed By: #### S CAN CBC, JANESSA, FE and TIBC #### [address] Monocytes/100 WBC (Bld) 6.3 % Normal . [facility] Comment on above: Performed By: #### S CAN CBC, JANESSA, FE and TIBC #### [address] Neutrophils (Bld) [#/Vol] 3.8 10*3/uL Normal 1.8-7.7 [facility] Comment on above: Performed By: #### S CAN CBC, JANESSA, FE and TIBC #### [address] Neutrophils/100 WBC (Bld) 55.1 % Normal . [facility] Comment on above: Performed By: #### S CAN CBC, JANESSA, FE and TIBC #### [address] NRBC% 0.1 /100{WBC} Normal 0-0.5 [facility] Comment on above: Performed By: #### S CAN CBC, JANESSA, FE and TIBC #### [address] Ovalocytes Slight Normal [facility] Comment on above: Performed By: #### S CAN CBC, JANESSA, FE and TIBC #### [address] Platelet Estimate Normal Normal Normal [facility] Comment on above: Performed By: #### S CAN CBC, JANESSA, FE and TIBC #### [address] Platelet mean volume (Bld) [Entitic vol] 8.7 fL Normal 6.3-10.7 [facility] Comment on above: Performed By: #### S CAN CBC, JANESSA, FE and TIBC #### [address] Platelet Morphology Normal Normal Normal [facility] Comment on above: Result Comment: PERF ORMED BY: [place] [address] PATHOLOGIST CHIEF NURSING EXECUTIVE MELISSA WAGNER M.D. Performed By: #### S CAN CBC, JANESSA, FE and TIBC #### [address] Platelets (Bld) [#/Vol] 218 10*3/uL Normal 150-450 [facility] Comment on above: Performed By: #### S CAN CBC, JANESSA, FE and TIBC #### [address] Poikilocytosis Slight Normal [facility] Comment on above: Performed By: #### S CAN CBC, JANESSA, FE and TIBC #### [address] RBC (Bld) [#/Vol] 4.34 10*6/uL Normal 3.60-5.00 [facility] Comment on above: Performed By: #### S CAN CBC, JANESSA, FE and TIBC #### [facility] [address] Schistocytes Slight Normal [facility] Comment on above: Performed By: #### S CAN CBC, JANESSA, FE and TIBC #### [facility] [address] WBC (Bld) [#/Vol] 6.9 10*3/uL Normal 3.8-11.6 [facility] Comment on above: Performed By: #### S CAN CBC, JANESSA, FE and TIBC #### [facility] [address] AMYLASEon 01-25-2023 Amylase [Catalytic activity/Vol] 64 U/L Normal 25-115 [facility] Comment on above: Performed By: #### B MP, LIPA, YVETTE, LIVER #### [facility] [address] [place] [address] Dr. Idania Roldan CBC AUTO DIFFon 01-25-2023 BASO # 0.0 103/ul Normal 0.0-0.1 [facility] Comment on above: Performed By: #### B MP, LIPA, YVETTE, LIVER #### [facility] [address] [place] [address] Dr. Idania Roldan Basophils/100 WBC (Bld) 0.3 % Normal 0.2-2.0 [facility] Comment on above: Performed By: #### B MP, LIPA, YVETTE, LIVER #### [facility] [address] [place] [address] Dr. Idania Roldan EO # 0.1 103/ul Normal 0.0-0.7 [facility] Comment on above: Performed By: #### B MP, LIPA, YVETTE, LIVER #### [facility] [address] [place] [address] Dr. Idania Roldan Eosinophils/100 WBC (Bld) 1.0 % Normal 0.9-7.0 [facility] Comment on above: Performed By: #### B MP, LIPA, YVETTE, LIVER #### [facility] [address] [place] [address] Dr. Idania Roldan Erythrocyte distribution width (RBC) [Ratio] 17.2 % Critically high 11.0-15.0 [facility] Comment on above: Performed By: #### B MP, LIPA, YVETTE, LIVER #### [facility] [address] [place] [address] Dr. Idania Roldan Hematocrit (Bld) [Volume fraction] 33.9 % Critically low 36.0-48.0 [facility] Comment on above: Performed By: #### B MP, LIPA, YVETTE, LIVER #### [facility] [address] [place] [address] Dr. Idania Roldan Hemoglobin (Bld) [Mass/Vol] 10.1 g/dL Critically low 12.0-16.0 [facility] Comment on above: Performed By: #### B MP, LIPA, YVETTE, LIVER #### [facility] [address] [place] [address] Dr. Idania Roldan IG # 0.01 10e3/ul Normal 0.00-0.03 [facility] Comment on above: Performed By: #### B MP, LIPA, YVETTE, LIVER #### [facility] [address] [place] [address] Dr. Idania Roldan IG % 0.2 % Normal 0.0-0.5 [facility] Comment on above: Performed By: #### B MP, LIPA, YVETTE, LIVER #### [facility] [address] [place] [address] Dr. Idania Roldan LYMPH # 1.7 103/ul Normal 1.2-3.8 [facility] Comment on above: Performed By: #### B MP, LIPA, YVETTE, LIVER #### [facility] [address] [place] [address] Dr. Idania Roldan Lymphocytes/100 WBC (Bld) 27.9 % Normal 20.5-60.0 [facility] Comment on above: Performed By: #### B MP, LIPA, YVETTE, LIVER #### [facility] [address] [place] [address] Dr. Idania Roldan MANUAL DIFF REQ NO Normal [facility] Comment on above: Performed By: #### B MP, LIPA, YVETTE, LIVER #### [facility] [address] [place] [address] Dr. Idania Roldan MCH (RBC) [Entitic mass] 20.7 pg Critically low 26.7-34.0 [facility] Comment on above: Performed By: #### B MP, LIPA, YVETTE, LIVER #### [facility] [address] [place] [address] Dr. Idania Roldan MCHC (RBC) [Mass/Vol] 29.8 g/dL Critically low 29.9-35.2 [facility] Comment on above: Performed By: #### B MP, LIPA, YVETTE, LIVER #### [facility] Laboratory [address] [place] [address] Dr. Idania Roldan MCV (RBC) [Entitic vol] 69.6 fL Critically low 81.0-99.0 [facility] Comment on above: Performed By: #### B MP, LIPA, YVETTE, LIVER #### [facility] [address] [place] [address] Dr. Idania Roldan MONO # 0.4 103/ul Normal 0.3-0.8 [facility] Comment on above: Performed By: #### B MP, LIPA, YVETTE, LIVER #### [facility] [address] [place] [address] Dr. Idania Roldan Monocytes/100 WBC (Bld) 7.1 % Normal 1.7-12.0 [facility] Comment on above: Performed By: #### B MP, LIPA, YVETTE, LIVER #### [facility] [address] [place] [address] Dr. Idania Roldan NEUT # 3.8 103/ul Normal 1.4-6.5 [facility] Comment on above: Performed By: #### B MP, LIPA, YVETTE, LIVER #### [facility] [address] [place] [address] Dr. Idania Roldan Neutrophils/100 WBC (Bld) 63.5 % Normal 43.0-75.0 [facility] Comment on above: Performed By: #### B MP, LIPA, YVETTE, LIVER #### [facility] [address] [place] [address] Dr. Idania Roldan Platelet mean volume (Bld) [Entitic vol] 9.3 fL Critically low 9.5-13.5 [facility] Comment on above: Performed By: #### B MP, LIPA, YVETTE, LIVER #### [facility] [address] [place] [address] Dr. Idania Roldan PLT 294 103/ul Normal 150-450 [facility] Comment on above: Performed By: #### B MP, LIPA, YVETTE, LIVER #### [facility] [address] [place] [address] Dr. Idania Roldan RBC 4.87 106/ul Normal 4.20-5.40 [facility] Comment on above: Performed By: #### B MP, LIPA, YVETTE, LIVER #### [facility] [address] [place] [address] Dr. Idania Roldan WBC 6.0 103/ul Normal 4.0-11.0 [facility] Comment on above: Performed By: #### B MP, LIPA, YVETTE, LIVER #### [facility] [address] [place] [address] ABD/PELVIS WO CONon [...] Josefa-en-Y gastric bypass. Electronically authenticated by: VEDA RONDA Date: 2023-01-25 12:20 Normal [facility] ER URINE PROFILEon 3 Bilirubin Ql (U) SMALL Abnormal NEGATIVE [facility] Comment on above: Performed By: #### B MP, LIPA, YVETTE, LIVER #### [facility] [address] [place] [address] Dr. Idania Roldan Clarity (U) CLEAR Normal CLEAR [facility] Comment on above: Performed By: #### B MP, LIPA, YVETTE, LIVER #### [facility] [address] [address] [address] Idania Roldan Color (U) DK. YELLOW Normal YELLOW [facility] Comment on above: Performed By: #### B MP, LIPA, YVETTE, LIVER #### [facility] [address] [address] [address] Idania Roldan ERUALLIED A micrscopic examina tion will be performed if indicated. Normal [facility] Comment on above: Performed By: #### B MP, LIPA, YVETTE, LIVER #### [facility] [address] [address] [address] Idania Roldan Glucose Ql (U) Negative Normal NEGATIVE [facility] Comment on above: Performed By: #### B MP, LIPA, YVETTE, LIVER #### [facility] [address] [address] [address] Idania Roldan Hemoglobin Ql (U) LARGE Abnormal NEGATIVE [facility] Comment on above: Performed By: #### B MP, LIPA, YVETTE, LIVER #### [facility] [address] [address] [address] Idania Roldan Ketones Ql (U) TRACE Abnormal NEGATIVE [facility] Comment on above: Performed By: #### B MP, LIPA, YVETTE, LIVER #### [facility] [address] [place] [address] Dr. Idania Roldan LEUKOCYTES Negative Normal NEGATIVE [facility] Comment on above: Performed By: #### B MP, LIPA, YVETTE, LIVER #### [facility] [address] [place] [address] Dr. Idania Roldan Nitrite Ql (U) Negative Normal NEGATIVE [facility] Comment on above: Performed By: #### B MP, LIPA, YVETTE, LIVER #### [facility] [address] [place] [address] Dr. Idania Roldan pH (U) 5.0 [pH] Normal 5-9 [facility] Comment on above: Performed By: #### B MP, LIPA, YVETTE, LIVER #### [facility] [address] [place] [address] Dr. Idania Roldan SPEC GRAVITY >=1.030 Abnormal 1.005-<=1.02 5 [facility] Comment on above: Performed By: #### B MP, LIPA, YVETTE, LIVER #### [facility] [address] [place] [address] Dr. Idania Roldan UA PROTEIN TRACE Normal NEGATIVE/ TRACE [facility] Comment on above: Performed By: #### B MP, LIPA, YVETTE, LIVER #### [facility] [address] [place] [address] Dr. Idania Roldan UR MICRO IND INDICATED Normal [facility] Comment on above: Performed By: #### B MP, LIPA, YVETTE, LIVER #### [facility] [address] [place] [address] Dr. Idania Roldan Urobilinogen Qn (U) 0.2 {Bryan'U}/dL Normal 0.2 - 1. 0 [facility] Comment on above: Performed By: #### B MP, LIPA, YVETTE, LIVER #### [facility] [address] [place] [address] Dr. Idania Roldan LIPASEon 01-25-2023 Lipase [Catalytic activity/Vol] 226.0 U/L Normal 73.0-393.0 [facility] Comment on above: Performed By: #### B MP, LIPA, YVETTE, LIVER #### [facility] [address] [place] [address] Dr. Idania Roldan LIVER PROFILEon 01-25-2023 Albumin [Mass/Vol] 4.1 g/dL Normal 3.4-5.0 [facility] Comment on above: Performed By: #### B MP, LIPA, YVETTE, LIVER #### [facility] [address] [place] [address] Dr. Idania Roldan Albumin/Globulin [Mass ratio] 0.9 {ratio} Normal [facility] Comment on above: Performed By: #### B MP, LIPA, YVETTE, LIVER #### [facility] [address] [place] [address] Dr. Idania Roldan ALP [Catalytic activity/Vol] 110 U/L Normal 46-116 [facility] Comment on above: Performed By: #### B MP, LIPA, YVETTE, LIVER #### [facility] [address] [place] [address] Dr. Idania Roldan ALT [Catalytic activity/Vol] 20 U/L Normal 14-59 [facility] Comment on above: Performed By: #### B MP, LIPA, YVETTE, LIVER #### [facility] [address] [place] [address] Dr. Idania Roldan AST [Catalytic activity/Vol] 11 U/L Critically low 15-37 [facility] Comment on above: Performed By: #### B MP, LIPA, YVETTE, LIVER #### [facility] [address] [place] [address] Dr. Idania Roldan BILI, CONJUGATED 0.1 mg/dL Normal 0.0-0.2 [facility] Comment on above: Performed By: #### B MP, LIPA, YVETTE, LIVER #### [facility] [address] [place] [address] Dr. Idania Roldan Bilirubin [Mass/Vol] 0.3 mg/dL Normal 0.2-1.0 [facility] Comment on above: Performed By: #### B MP, LIPA, YVETTE, LIVER #### [facility] [address] [place] [address] Dr. Idania Roldan Globulin (S) [Mass/Vol] 4.4 g/dL Normal [facility] Comment on above: Performed By: #### B MP, LIPA, YVETTE, LIVER #### [facility] [address] [place] [address] Dr. Idania Roldan Protein [Mass/Vol] 8.5 g/dL Critically high 6.4-8.2 [facility] Comment on above: Performed By: #### B MP, LIPA, YVETTE, LIVER #### [facility] [address] [place] [address] Dr. Idania Roldan PROF CHEM 8 (BAS METB)on Anion gap [Moles/Vol] 13.5 mmol/L Normal [facility] Comment on above: Performed By: #### B MP, LIPA, YVETTE, LIVER #### [facility] [address] [place] [address] Dr. Idania Roldan Calcium [Mass/Vol] 9.3 mg/dL Normal 8.5-10.1 [facility] Comment on above: Performed By: #### B MP, LIPA, YVETTE, LIVER #### [facility] [address] [place] [address] Dr. Idania Roldan Chloride [Moles/Vol] 105 mmol/L Normal 98-107 [facility] Comment on above: Performed By: #### B MP, LIPA, YVETTE, LIVER #### [facility] [address] [place] [address] Dr. Idania Roldan CO2 [Moles/Vol] 27.2 mmol/L Normal 21.0-32.0 [facility] Comment on above: Performed By: #### B MP, LIPA, YVETTE, LIVER #### [facility] [address] [place] [address] Dr. Idania Roldan Creatinine [Mass/Vol] 0.74 mg/dL Normal 0.55-1.02 [facility] Comment on above: Performed By: #### B MP, LIPA, YVETTE, LIVER #### [facility] [address] [address] [address] Idania Roldan EGFR-AF GIBRALTARIAN >60 Normal >=60 [facility] Comment on above: Performed By: #### B MP, LIPA, YVETTE, LIVER #### [facility] [address] [address] [address] Idania Roldan EGFR-NON AF GIBRALTARIAN >60 Normal >=60 [facility] Comment on above: Performed By: #### B MP, LIPA, YVETTE, LIVER #### [facility] [address] [address] [address] Idania Roldan Glucose [Mass/Vol] 97 mg/dL Normal 74-106 [facility] Comment on above: Performed By: #### B MP, LIPA, YVETTE, LIVER #### [facility] [address] [place] [address] Dr. Idania Roldan Potassium [Moles/Vol] 3.7 mmol/L Normal 3.5-5.1 [facility] Comment on above: Performed By: #### B MP, LIPA, YVETTE, LIVER #### [facility] [address] [address] [address] Idania Roldan Sodium [Moles/Vol] 142 mmol/L Normal 136-145 [facility] Comment on above: Performed By: #### B MP, LIPA, YVETTE, LIVER #### [facility] [address] [address] [address] Idania Roldan Urea nitrogen [Mass/Vol] 13.0 mg/dL Normal 7.0-18.0 [facility] Comment on above: Performed By: #### B MP, LIPA, YVETTE, LIVER #### [facility] [address] [place] [address] Dr. Idania Roldan Urea nitrogen/Creatinine [Mass ratio] 17.6 mg/mg Normal [facility] Comment on above: Performed By: #### B MP, LIPA, YVETTE, LIVER #### [facility] [address] [place] [address] Dr. Idania Roldan URINE MICROSCOPIC ONLYon BACTERIA NONE SEEN Normal NONE SEEN [facility] Comment on above: Performed By: #### B MP, LIPA, YVETTE, LIVER #### [facility] [address] [place] [address] Dr. Idania Roldan Bacteria identified Cx Nom (U) NOT INDICATED Normal [facility] Comment on above: Performed By: #### B MP, LIPA, YVETTE, LIVER #### [facility] [address] [place] [address] Dr. Idania Roldan CAST NONE SEEN Normal NONE SEEN [facility] Comment on above: Performed By: #### B MP, LIPA, YVETTE, LIVER #### [facility] [address] [place] [address] Dr. Idania Roldan Crystals LM Nom (Urine sed) NONE SEEN Normal NONE SEEN [facility] Comment on above: Performed By: #### B MP, LIPA, YVETTE, LIVER #### [facility] [address] [place] [address] Dr. Idania Roldan Epithelial cells LM Ql (Urine sed) FEW Abnormal NONE SEEN /RARE [facility] Comment on above: Performed By: #### B MP, LIPA, YVETTE, LIVER #### [facility] [address] [place] [address] Dr. Idania Roldan MUCOUS NONE SEEN Normal NONE SEEN [facility] Comment on above: Performed By: #### B MP, LIPA, YVETTE, LIVER #### [facility] [address] [place] [address] Dr. Idania Roldan RBC (U) [#/Vol] /uL Abnormal 0-2 [facility] Comment on above: Performed By: #### B MP, LIPA, YVETTE, LIVER #### [facility] [address] [place] [address] Dr. Idania Roldan WBC NONE SEEN Normal NONE SEEN [facility] Comment on above: Performed By: #### B MP, LIPA, YVETTE, LIVER #### [facility] [address] [place] [address] Dr. Idania Roldan XR KUB 1 VIEWon [...] DENILSON AUSTIN Date: 2023-01-24 19:51 Normal [facility] AMYLASEon 01-21-2023 Amylase [Catalytic activity/Vol] 64 U/L Normal 25-115 [facility] Comment on above: Performed By: #### P T, PTT #### [facility] [address] [place] [address] Dr. Idania Roldan CBC AUTO DIFFon 01-21-2023 BASO # 0.0 103/ul Normal 0.0-0.1 [facility] Comment on above: Performed By: #### B MP, LIPA, YVETTE, LIVER #### [facility] [address] [place] [address] Dr. Idania Roldan Basophils/100 WBC (Bld) 0.2 % Normal 0.2-2.0 [facility] Comment on above: Performed By: #### B MP, LIPA, YVETTE, LIVER #### [facility] [address] [place] [address] Dr. Idania Roldan EO # 0.1 103/ul Normal 0.0-0.7 [facility] Comment on above: Performed By: #### B MP, LIPA, YVETTE, LIVER #### [facility] [address] [place] [address] Dr. Idania Roldan Eosinophils/100 WBC (Bld) 0.9 % Normal 0.9-7.0 [facility] Comment on above: Performed By: #### B MP, LIPA, YVETTE, LIVER #### [facility] [address] [place] [address] Dr. Idania Roldan Erythrocyte distribution width (RBC) [Ratio] 17.2 % Critically high 11.0-15.0 [facility] Comment on above: Performed By: #### B MP, LIPA, YVETTE, LIVER #### [facility] [address] [place] [address] Dr. Idania Roldan Hematocrit (Bld) [Volume fraction] 32.5 % Critically low 36.0-48.0 [facility] Comment on above: Performed By: #### B MP, LIPA, YVETTE, LIVER #### [facility] [address] [address] [address] Idania Roldan Hemoglobin (Bld) [Mass/Vol] 9.5 g/dL Critically low 12.0-16.0 [facility] Comment on above: Performed By: #### B MP, LIPA, YVETTE, LIVER #### [facility] [address] [place] [address] Dr. Idania Roldan IG # 0.01 10e3/ul Normal 0.00-0.03 [facility] Comment on above: Performed By: #### B MP, LIPA, YVETTE, LIVER #### [facility] [address] [address] [address] Idania Roldan IG % 0.2 % Normal 0.0-0.5 [facility] Comment on above: Performed By: #### B MP, LIPA, YVETTE, LIVER #### [facility] [address] [place] [address] Dr. Idania Roldan LYMPH # 2.0 103/ul Normal 1.2-3.8 [facility] Comment on above: Performed By: #### B MP, LIPA, YVETTE, LIVER #### [facility] [address] [address] [address] Idania Roldan Lymphocytes/100 WBC (Bld) 34.7 % Normal 20.5-60.0 [facility] Comment on above: Performed By: #### B MP, LIPA, YVETTE, LIVER #### [facility] [address] [place] [address] Dr. Idania Roldan MANUAL DIFF REQ NO Normal [facility] Comment on above: Performed By: #### B MP, LIPA, YVETTE, LIVER #### [facility] [address] [place] [address] Dr. Idania Roldan MCH (RBC) [Entitic mass] 20.5 pg Critically low 26.7-34.0 [facility] Comment on above: Performed By: #### B MP, LIPA, YVETTE, LIVER #### [facility] [address] [place] [address] Dr. Idania Roldan MCHC (RBC) [Mass/Vol] 29.2 g/dL Critically low 29.9-35.2 [facility] Comment on above: Performed By: #### B MP, LIPA, YVETTE, LIVER #### [facility] [address] [place] [address] Dr. Idania Roldan MCV (RBC) [Entitic vol] 70.2 fL Critically low 81.0-99.0 [facility] Comment on above: Performed By: #### B MP, LIPA, YVETTE, LIVER #### [facility] [address] [place] [address] Dr. Idania Roldan MONO # 0.5 103/ul Normal 0.3-0.8 [facility] Comment on above: Performed By: #### B MP, LIPA, YVETTE, LIVER #### [facility] [address] [place] [address] Dr. Idania Roldan Monocytes/100 WBC (Bld) 8.7 % Normal 1.7-12.0 [facility] Comment on above: Performed By: #### B MP, LIPA, YVETTE, LIVER #### [facility] [address] [place] [address] Dr. Idania Roldan NEUT # 3.2 103/ul Normal 1.4-6.5 [facility] Comment on above: Performed By: #### B MP, LIPA, YVETTE, LIVER #### [facility] [address] [place] [address] Dr. Idania Roldan Neutrophils/100 WBC (Bld) 55.3 % Normal 43.0-75.0 [facility] Comment on above: Performed By: #### B MP, LIPA, YVETTE, LIVER #### [facility] [address] [place] [address] Dr. Idania Roldan Platelet mean volume (Bld) [Entitic vol] 9.7 fL Normal 9.5-13.5 [facility] Comment on above: Performed By: #### B MP, LIPA, YVETTE, LIVER #### [facility] [address] [place] [address] Dr. Idania Roldan PLT 310 103/ul Normal 150-450 [facility] Comment on above: Performed By: #### B MP, LIPA, YVETTE, LIVER #### [facility] [address] [place] [address] Dr. Idania Roldan RBC 4.63 106/ul Normal 4.20-5.40 [facility] Comment on above: Performed By: #### B MP, LIPA, YVETTE, LIVER #### [facility] [address] [place] [address] Dr. Idania Roldan WBC 5.8 103/ul Normal 4.0-11.0 [facility] Comment on above: Performed By: #### B MP, LIPA, YVETTE, LIVER #### [facility] [address] [place] [address] Dr. Idania Roldan CULTURE URINEon 01-21-2023 CULTURE URINE Culture Observations : MODERATE GROWTH OF MIXED GENITAL ALE. NO POTENTIAL PATHOGENS SEEN. Normal [facility] Comment on above: Performed By: #### P T, PTT #### [facility] [address] [place] [address] Dr. Idania Roldan LIPASEon 01-21-2023 Lipase [Catalytic activity/Vol] 251.0 U/L Normal 73.0-393.0 [facility] Comment on above: Performed By: #### P T, PTT #### [facility] [address] [place] [address] Dr. Idania Roldan PROF 14(COMP METB)on 023 Albumin [Mass/Vol] 3.8 g/dL Normal 3.4-5.0 [facility] Comment on above: Performed By: #### P T, PTT #### [facility] [address] [address] [address] Idania Roldan Albumin/Globulin [Mass ratio] 1.0 {ratio} Normal [facility] Comment on above: Performed By: #### P T, PTT #### [facility] [address] [address] [address] Idania Roldan ALP [Catalytic activity/Vol] 107 U/L Normal 46-116 [facility] Comment on above: Performed By: #### P T, PTT #### [facility] [address] [address] [address] Idania Roldan ALT [Catalytic activity/Vol] 17 U/L Normal 14-59 [facility] Comment on above: Performed By: #### P T, PTT #### [facility] [address] [address] [address] Idania Roldan Anion gap [Moles/Vol] 13.3 mmol/L Normal [facility] Comment on above: Performed By: #### P T, PTT #### [facility] [address] [address] [address] Idania Roldan AST [Catalytic activity/Vol] 9 U/L Critically low 15-37 [facility] Comment on above: Performed By: #### P T, PTT #### [facility] [address] [address] [address] Idania Roldan Bilirubin [Mass/Vol] 0.3 mg/dL Normal 0.2-1.0 [facility] Comment on above: Performed By: #### P T, PTT #### [facility] [address] [address] [address] Idania Roldan Calcium [Mass/Vol] 9.0 mg/dL Normal 8.5-10.1 [facility] Comment on above: Performed By: #### P T, PTT #### [facility] [address] [address] [address] Idania Roldan Chloride [Moles/Vol] 103 mmol/L Normal 98-107 [facility] Comment on above: Performed By: #### P T, PTT #### [facility] [address] [address] [address] Idania Roldan CO2 [Moles/Vol] 28.2 mmol/L Normal 21.0-32.0 [facility] Comment on above: Performed By: #### P T, PTT #### [facility] [address] [address] [address] Idania Roldan Creatinine [Mass/Vol] 0.81 mg/dL Normal 0.55-1.02 [facility] Comment on above: Performed By: #### P T, PTT #### [facility] [address] [address] [address] Idania Roldan EGFR-AF GIBRALTARIAN >60 Normal >=60 [facility] Comment on above: Performed By: #### P T, PTT #### [facility] [address] [place] [address] Dr. Idania Roldan EGFR-NON AF GIBRALTARIAN >60 Normal >=60 [facility] Comment on above: Performed By: #### P T, PTT #### [facility] [address] [place] [address] Dr. Idania Roldan Globulin (S) [Mass/Vol] 3.9 g/dL Normal [facility] Comment on above: Performed By: #### P T, PTT #### [facility] [address] [place] [address] Dr. Idania Roldan Glucose [Mass/Vol] 93 mg/dL Normal 74-106 [facility] Comment on above: Performed By: #### P T, PTT #### [facility] [address] [place] [address] Dr. Idania Roldan Potassium [Moles/Vol] 3.5 mmol/L Normal 3.5-5.1 [facility] Comment on above: Performed By: #### P T, PTT #### [facility] [address] [place] [address] Dr. Idania Roldan Protein [Mass/Vol] 7.7 g/dL Normal 6.4-8.2 [facility] Comment on above: Performed By: #### P T, PTT #### [facility] [address] [place] [address] Dr. Idania Roldan Sodium [Moles/Vol] 141 mmol/L Normal 136-145 [facility] Comment on above: Performed By: #### P T, PTT #### [facility] [address] [place] [address] Dr. Idania Roldan Urea nitrogen [Mass/Vol] 11.0 mg/dL Normal 7.0-18.0 [facility] Comment on above: Performed By: #### P T, PTT #### [facility] [address] [place] [address] Dr. Idania Roldan Urea nitrogen/Creatinine [Mass ratio] 13.6 mg/mg Normal [facility] Comment on above: Performed By: #### P T, PTT #### [facility] [address] [place] [address] Dr. Idania Roldan UA RANDOM W/MICROSCOPICon BACTERIA SMALL Abnormal NONE SEEN [facility] Comment on above: Performed By: #### B MP, LIPA, YVETTE, LIVER #### [facility] [address] [place] [address] Dr. Idania Roldan Bilirubin Ql (U) SMALL Abnormal NEGATIVE [facility] Comment on above: Performed By: #### B MP, LIPA, YVETTE, LIVER #### [facility] [address] [place] [address] Dr. Idania Roldan CAST NONE SEEN Normal NONE SEEN [facility] Comment on above: Performed By: #### B MP, LIPA, YVETTE, LIVER #### [facility] [address] [place] [address] Dr. Idania Roldan Clarity (U) CLEAR Normal CLEAR [facility] Comment on above: Performed By: #### B MP, LIPA, YVETTE, LIVER #### [facility] [address] [place] [address] Dr. Idania Roldan Color (U) DK. YELLOW Normal YELLOW [facility] Comment on above: Performed By: #### B MP, LIPA, YVETTE, LIVER #### [facility] [address] [place] [address] Dr. Idania Roldan Crystals LM Nom (Urine sed) NONE SEEN Normal NONE SEEN [facility] Comment on above: Performed By: #### B MP, LIPA, YVETTE, LIVER #### [facility] [address] [place] [address] Dr. Idania Roldan Epithelial cells LM Ql (Urine sed) FEW Abnormal NONE SEEN /RARE [facility] Comment on above: Performed By: #### B MP, LIPA, YVETTE, LIVER #### [facility] [address] [address] [address] Idania Roldan Glucose Ql (U) Negative Normal NEGATIVE [facility] Comment on above: Performed By: #### B MP, LIPA, YVETTE, LIVER #### [facility] [address] [place] [address] Dr. Idania Roldan Hemoglobin Ql (U) LARGE Abnormal NEGATIVE [facility] Comment on above: Performed By: #### B MP, LIPA, YVETTE, LIVER #### [facility] [address] [place] [address] Dr. Idania Roldan Ketones Ql (U) TRACE Abnormal NEGATIVE [facility] Comment on above: Performed By: #### B MP, LIPA, YVETTE, LIVER #### [facility] [address] [place] [address] Dr. Idania Roldan LEUKOCYTES Negative Normal NEGATIVE [facility] Comment on above: Performed By: #### B MP, LIPA, YVETTE, LIVER #### [facility] [address] [place] [address] Dr. Idania Roldan MUCOUS MODERATE Abnormal NONE SEEN [facility] Comment on above: Performed By: #### B MP, LIPA, YVETTE, LIVER #### [facility] [address] [place] [address] Dr. Idania Roldan Nitrite Ql (U) Negative Normal NEGATIVE [facility] Comment on above: Performed By: #### B MP, LIPA, YVETTE, LIVER #### [facility] [address] [place] [address] Dr. Idania Roldan pH (U) 5.0 [pH] Normal 5-9 [facility] Comment on above: Performed By: #### B MP, LIPA, YVETTE, LIVER #### [facility] [address] [place] [address] Dr. Idania Roldan RBC (U) [#/Vol] /uL Abnormal 0-2 [facility] Comment on above: Performed By: #### B MP, LIPA, YVETTE, LIVER #### [facility] [address] [place] [address] Dr. Idania Roldan SPEC GRAVITY >=1.030 Abnormal 1.005-<=1.02 5 [facility] Comment on above: Performed By: #### B MP, LIPA, YVETTE, LIVER #### [facility] [address] [place] [address] Dr. Idania Roldan UA PROTEIN TRACE Normal NEGATIVE/ TRACE [facility] Comment on above: Performed By: #### B MP, LIPA, YVETTE, LIVER #### [facility] [address] [place] [address] Dr. Idania Roldan Urobilinogen Qn (U) 0.2 {Bryan'U}/dL Normal 0.2 - 1. 0 [facility] Comment on above: Performed By: #### B MP, LIPA, YVETTE, LIVER #### [facility] [address] [address] [address] Idania Roldan WBC 0-2 Abnormal NONE SEEN [facility] Comment on above: Performed By: #### B MP, LIPA, YVETTE, LIVER #### [facility] [address] [place] [address] Dr. Idania Roldan Covid-19 PCR (CVDTB)on 09-11 SARS-CoV-2 (COVID-19) RNA MAMIE+probe Ql (Unsp spec) Detected Critically abnormal NOT DETECTED [facility] Comment on above: Result Comment: This test is not yet approved or cleared by the [place] FDA. When there are no FDA-approved or cleared tests available, and other criteria are met, FDA can make tests available under an emergency access mechanism called an Emergency Use Authorization (EUA). The EUA for this test is supported by the [place] of Health and Human Service's (HHS's) declaration [...] used). Performed By: #### C VDTB #### [facility] [address] [place] [address] Dr. Idania Roldan INFLUENZA A AND B AGon 10-06 INFLUANE SEE BELOW Normal [facility] Comment on above: Result Comment: Nega tive for Flu A protein angiten. Infection due to Flu A cannot be ruled out. Flu A angiten in the sample may be below the detection limit of the test. Performed By: #### P T, PTT #### [facility] [address] [place] [address] Dr. Idania Roldan INFLUBNEG SEE BELOW Normal [facility] Comment on above: Result Comment: Nega tive for Flu B protein antigen. Infection due to Flu B cannot be ruled out. Flu B antigen in the sample may be below the detection limit of the test. Performed By: #### P T, PTT #### [facility] [address] [place] [address] Dr. Idania Roldan INFLUENZA A AG Negative Normal NEGATIVE SEE COMMENT [facility] Comment on above: Performed By: #### P T, PTT #### [facility] [address] [place] [address] Dr. Idania Roldan INFLUENZA B AG Negative Normal NEGATIVE SEE COMMENT [facility] Comment on above: Performed By: #### P T, PTT #### [facility] [address] [place] [address] Dr. Idania Roldan INTERNAL CONTROLS Within Normal Limits Normal Wi thin Normal Limits [facility] Comment on above: Performed By: #### P T, PTT #### [facility] [address] [place] [address] Dr. Idania Roldan AMYLASEon 09-30-2022 Amylase [Catalytic activity/Vol] 62 U/L Normal 25-115 [facility] Comment on above: Performed By: #### B MP, LIPA, YVETTE, LIVER #### [facility] [address] [address] [address] Idania Roldan CBC AUTO DIFFon 09-30-2022 BASO # 0.0 103/ul Normal 0.0-0.1 [facility] Comment on above: Performed By: #### C BC #### [facility] [address] [address] [address] dIania Roldan Basophils/100 WBC (Bld) 0.3 % Normal 0.2-2.0 [facility] Comment on above: Performed By: #### C BC #### [facility] [address] [place] [address] Dr. Idania Roldan EO # 0.1 103/ul Normal 0.0-0.7 [facility] Comment on above: Performed By: #### C BC #### [facility] [address] [place] [address] Dr. Idania Roldan Eosinophils/100 WBC (Bld) 1.2 % Normal 0.9-7.0 [facility] Comment on above: Performed By: #### C BC #### [facility] [address] [place] [address] Dr. Idania Roldan Erythrocyte distribution width (RBC) [Ratio] 14.8 % Normal 11.0-15.0 [facility] Comment on above: Performed By: #### C BC #### [facility] [address] [place] [address] Dr. Idania Roldan Hematocrit (Bld) [Volume fraction] 31.8 % Critically low 36.0-48.0 [facility] Comment on above: Performed By: #### C BC #### [facility] [address] [place] [address] Dr. Idania Roldan Hemoglobin (Bld) [Mass/Vol] 9.6 g/dL Critically low 12.0-16.0 [facility] Comment on above: Performed By: #### C BC #### [facility] [address] [place] [address] Dr. Idania Roldan IG # 0.01 10e3/ul Normal 0.00-0.03 [facility] Comment on above: Performed By: #### C BC #### [facility] [address] [place] [address] Dr. Idania Roldan IG % 0.1 % Normal 0.0-0.5 [facility] Comment on above: Performed By: #### C BC #### [facility] [address] [place] [address] Dr. Idania Roldan LYMPH # 3.3 103/ul Normal 1.2-3.8 [facility] Comment on above: Performed By: #### C BC #### [facility] [address] [place] [address] Dr. Idania Roldan Lymphocytes/100 WBC (Bld) 45.4 % Normal 20.5-60.0 [facility] Comment on above: Performed By: #### C BC #### [facility] [address] [place] [address] Dr. Idania Roldan MANUAL DIFF REQ NO Normal [facility] Comment on above: Performed By: #### C BC #### [facility] [address] [place] [address] Dr. Idania Roldan MCH (RBC) [Entitic mass] 22.7 pg Critically low 26.7-34.0 [facility] Comment on above: Performed By: #### C BC #### [facility] [address] [place] [address] Dr. Idania Roldan MCHC (RBC) [Mass/Vol] 30.2 g/dL Normal 29.9-35.2 [facility] Comment on above: Performed By: #### C BC #### [facility] [address] [place] [address] Dr. Idania Roldan MCV (RBC) [Entitic vol] 75.4 fL Critically low 81.0-99.0 [facility] Comment on above: Performed By: #### C BC #### [facility] [address] [place] [address] Dr. Idania Roldan MONO # 0.5 103/ul Normal 0.3-0.8 [facility] Comment on above: Performed By: #### C BC #### [facility] [address] [address] [address] Idania Roldan Monocytes/100 WBC (Bld) 6.2 % Normal 1.7-12.0 [facility] Comment on above: Performed By: #### C BC #### [facility] [address] [address] [address] Idania Roldan NEUT # 3.4 103/ul Normal 1.4-6.5 [facility] Comment on above: Performed By: #### C BC #### [facility] [address] [place] [address] Dr. Idania Roldan Neutrophils/100 WBC (Bld) 46.8 % Normal 43.0-75.0 [facility] Comment on above: Performed By: #### C BC #### [facility] [address] [place] [address] Dr. Idania Roldan Platelet mean volume (Bld) [Entitic vol] 8.5 fL Critically low 9.5-13.5 [facility] Comment on above: Performed By: #### C BC #### [facility] [address] [place] [address] Dr. Idania Roldan PLT 273 103/ul Normal 150-450 [facility] Comment on above: Performed By: #### C BC #### [facility] [address] [place] [address] Dr. Idania Roldan RBC 4.22 106/ul Normal 4.20-5.40 [facility] Comment on above: Performed By: #### C BC #### [facility] [address] [place] [address] Dr. Idania Roldan WBC 7.2 103/ul Normal 4.0-11.0 [facility] Comment on above: Performed By: #### C BC #### [facility] [address] [place] [address] Dr. Idania Roldan CULTURE URINEon 09-30-2022 CULTURE URINE Culture Observations : MODERATE GROWTH OF MIXED GENITAL ALE. NO POTENTIAL PATHOGENS SEEN. Normal [facility] Comment on above: Performed By: #### P T, PTT #### [facility] [address] [place] [address] Dr. Idania Roldan LIPASEon 09-30-2022 Lipase [Catalytic activity/Vol] 256.0 U/L Normal 73.0-393.0 [facility] Comment on above: Performed By: #### B MP, LIPA, YVETTE, LIVER #### [facility] [address] [place] [address] Dr. Idania Roldan PROF 14(COMP METB)on 022 Albumin [Mass/Vol] 4.1 g/dL Normal 3.4-5.0 [facility] Comment on above: Performed By: #### B MP, LIPA, YVETTE, LIVER #### [facility] [address] [place] [address] Dr. Idania Roldan Albumin/Globulin [Mass ratio] 1.0 {ratio} Normal [facility] Comment on above: Performed By: #### B MP, LIPA, YVETTE, LIVER #### [facility] [address] [place] [address] Dr. Idania Roldan ALP [Catalytic activity/Vol] 93 U/L Normal 46-116 [facility] Comment on above: Performed By: #### B MP, LIPA, YVETTE, LIVER #### [facility] [address] [place] [address] Dr. Idania Roldan ALT [Catalytic activity/Vol] 13 U/L Critically low 14-59 [facility] Comment on above: Performed By: #### B MP, LIPA, YVETTE, LIVER #### [facility] [address] [place] [address] Dr. Idania Roldan Anion gap [Moles/Vol] 9.8 mmol/L Normal [facility] Comment on above: Performed By: #### B MP, LIPA, YVETTE, LIVER #### [facility] [address] [place] [address] Dr. Idania Roldan AST [Catalytic activity/Vol] 12 U/L Critically low 15-37 [facility] Comment on above: Performed By: #### B MP, LIPA, YVETTE, LIVER #### [facility] [address] [place] [address] Dr. Idania Roldan Bilirubin [Mass/Vol] 0.2 mg/dL Normal 0.2-1.0 [facility] Comment on above: Performed By: #### B MP, LIPA, YVETTE, LIVER #### [facility] [address] [place] [address] Dr. Idania Roldan Calcium [Mass/Vol] 9.2 mg/dL Normal 8.5-10.1 [facility] Comment on above: Performed By: #### B MP, LIPA, YVETTE, LIVER #### [facility] [address] [place] [address] Dr. Idania Roldan Chloride [Moles/Vol] 101 mmol/L Normal 98-107 [facility] Comment on above: Performed By: #### B MP, LIPA, YVETTE, LIVER #### [facility] [address] [place] [address] Dr. Idania Roldan CO2 [Moles/Vol] 31.8 mmol/L Normal 21.0-32.0 [facility] Comment on above: Performed By: #### B MP, LIPA, YVETTE, LIVER #### [facility] [address] [place] [address] Dr. Idania Roldan Creatinine [Mass/Vol] 0.71 mg/dL Normal 0.55-1.02 [facility] Comment on above: Performed By: #### B MP, LIPA, YVETTE, LIVER #### [facility] [address] [place] [address] Dr. Idania Roldan EGFR-AF GIBRALTARIAN >60 Normal >=60 [facility] Comment on above: Performed By: #### B MP, LIPA, YVETTE, LIVER #### [facility] [address] [place] [address] Dr. Idania Roldan EGFR-NON AF GIBRALTARIAN >60 Normal >=60 [facility] Comment on above: Performed By: #### B MP, LIPA, YVETTE, LIVER #### [facility] [address] [place] [address] Dr. Idania Roldan Globulin (S) [Mass/Vol] 4.0 g/dL Normal [facility] Comment on above: Performed By: #### B MP, LIPA, YVETTE, LIVER #### [facility] [address] [place] [address] Dr. Idania Roldan Glucose [Mass/Vol] 92 mg/dL Normal 74-106 [facility] Comment on above: Performed By: #### B MP, LIPA, YVETTE, LIVER #### [facility] [address] [place] [address] Dr. Idania Roldan Potassium [Moles/Vol] 3.6 mmol/L Normal 3.5-5.1 [facility] Comment on above: Performed By: #### B MP, LIPA, YVETTE, LIVER #### [facility] [address] [place] [address] Dr. Idania Roldan Protein [Mass/Vol] 8.1 g/dL Normal 6.4-8.2 [facility] Comment on above: Performed By: #### B MP, LIPA, YVETTE, LIVER #### [facility] [address] [place] [address] Dr. Idania Roldan Sodium [Moles/Vol] 139 mmol/L Normal 136-145 [facility] Comment on above: Performed By: #### B MP, LIPA, YVETTE, LIVER #### [facility] [address] [place] [address] Dr. Idania Roldan Urea nitrogen [Mass/Vol] 15.0 mg/dL Normal 7.0-18.0 [facility] Comment on above: Performed By: #### B MP, LIPA, YVETTE, LIVER #### [facility] [address] [place] [address] Dr. Idania Roldan Urea nitrogen/Creatinine [Mass ratio] 21.1 mg/mg Normal [facility] Comment on above: Performed By: #### B MP, LIPA, YVETTE, LIVER #### [facility] [address] [place] [address] Dr. Idania Roldan UA RANDOM W/MICROSCOPICon BACTERIA SMALL Abnormal NONE SEEN [facility] Comment on above: Performed By: #### B MP, LIPA, YVETTE, LIVER #### [facility] [address] [place] [address] Dr. Idania Roldan Bilirubin Ql (U) Negative Normal NEGATIVE [facility] Comment on above: Performed By: #### B MP, LIPA, YVETTE, LIVER #### [facility] [address] [address] [address] Idania Roldan CAST NONE SEEN Normal NONE SEEN [facility] Comment on above: Performed By: #### B MP, LIPA, YVETTE, LIVER #### [facility] [address] [place] [address] Dr. Idania Roldan Clarity (U) CLEAR Normal CLEAR [facility] Comment on above: Performed By: #### B MP, LIPA, YVETTE, LIVER #### [facility] [address] [place] [address] Dr. Idania Roldan Color (U) YELLOW Normal YELLOW [facility] Comment on above: Performed By: #### B MP, LIPA, YVETTE, LIVER #### [facility] [address] [place] [address] Dr. Idania Roldan Crystals LM Nom (Urine sed) NONE SEEN Normal NONE SEEN [facility] Comment on above: Performed By: #### B MP, LIPA, YVETTE, LIVER #### [facility] [address] [place] [address] Dr. Idania Roldan Epithelial cells LM Ql (Urine sed) FEW Abnormal NONE SEEN /RARE [facility] Comment on above: Performed By: #### B MP, LIPA, YVETTE, LIVER #### [facility] [address] [place] [address] Dr. Idania Roldan Glucose Ql (U) Negative Normal NEGATIVE [facility] Comment on above: Performed By: #### B MP, LIPA, YVETTE, LIVER #### [facility] [address] [place] [address] Dr. Idania Roldan Hemoglobin Ql (U) Negative Normal NEGATIVE [facility] Comment on above: Performed By: #### B MP, LIPA, YVETTE, LIVER #### [facility] [address] [place] [address] Dr. Idania Roldan Ketones Ql (U) Negative Normal NEGATIVE [facility] Comment on above: Performed By: #### B MP, LIPA, YVETTE, LIVER #### [facility] [address] [place] [address] Dr. Idania Roldan LEUKOCYTES SMALL Abnormal NEGATIVE [facility] Comment on above: Performed By: #### B MP, LIPA, YVETTE, LIVER #### [facility] [address] [place] [address] Dr. Idania Roldan MUCOUS TRACE Abnormal NONE SEEN [facility] Comment on above: Performed By: #### B MP, LIPA, YVETTE, LIVER #### [facility] [address] [address] [address] Idania Roldan Nitrite Ql (U) Negative Normal NEGATIVE [facility] Comment on above: Performed By: #### B MP, LIPA, YVETTE, LIVER #### [facility] [address] [place] [address] Dr. Idania Roldan pH (U) 7.0 [pH] Normal 5-9 [facility] Comment on above: Performed By: #### B MP, LIPA, YVETTE, LIVER #### [facility] [address] [place] [address] Dr. Idania Roldan RBC NONE SEEN Abnormal 0-2 [facility] Comment on above: Performed By: #### B MP, LIPA, YVETTE, LIVER #### [facility] [address] [place] [address] Dr. Idania Roldan SPEC GRAVITY 1.015 Normal 1.005-<=1.02 5 [facility] Comment on above: Performed By: #### B MP, LIPA, YVETTE, LIVER #### [facility] [address] [place] [address] Dr. Idania Roldan UA PROTEIN Negative Normal NEGATIVE/ TRACE [facility] Comment on above: Performed By: #### B MP, LIPA, YVETTE, LIVER #### [facility] [address] [place] [address] Dr. Idania Roldan Urobilinogen Qn (U) 0.2 {Bryan'U}/dL Normal 0.2 - 1. 0 [facility] Comment on above: Performed By: #### B MP, LIPA, YVETTE, LIVER #### [facility] [address] [place] [address] Dr. Idania Roldan WBC 5-10 Abnormal NONE SEEN [facility] Comment on above: Performed By: #### B MP, LIPA, YVETTE, LIVER #### [facility] [address] [address] [address] Idania Roldan Covid-19 PCR ([facility])on 09-10 SARS-CoV-2 (COVID-19) RNA MAMIE+probe Ql (Unsp spec) Not detected Normal NOT DETECTED [facility] Comment on above: Result Comment: This test is not yet approved or cleared by the [place] FDA. When there are no FDA-approved or cleared tests available, and other criteria are met, FDA can make tests available under an emergency access mechanism called an Emergency Use Authorization (EUA). The EUA for this test is supported by the [place] of Health and Human Service's (HHS's) declaration [...] SARS-CoV-2. Performed By: #### C VDTBH #### [facility] [address] [place] [address] Dr. Idania Roldan INFLUENZA A AND B AGon 09-21 INFLUANEGH SEE BELOW Normal [facility] Comment on above: Result Comment: Nega tive for Flu A protein angiten. Infection due to Flu A cannot be ruled out. Flu A angiten in the sample may be below the detection limit of the test. Performed By: #### B MP, LIPA, YVETTE, LIVER #### [facility] [address] [place], [place] [id number] Dr. [facility] Normal [facility] Comment on above: Result Comment: Nega tive for Flu B protein antigen. Infection due to Flu B cannot be ruled out. Flu B antigen in the sample may be below the detection limit of the test. Performed By: #### B MP, LIPA, YVETTE, LIVER #### [facility] [address] [address] [address] Idania Roldan INFLUENZA A AG Negative Normal NEGATIVE SEE COMMENT [facility] Comment on above: Performed By: #### B MP, LIPA, YVETTE, LIVER #### [facility] [address] [address] [address] Idania Roldan INFLUENZA B AG Negative Normal NEGATIVE SEE COMMENT [facility] Comment on above: Performed By: #### B MP, LIPA, YVETTE, LIVER #### [facility] [address] [address] [address] Idania Roldan INTERNAL CONTROLS Within Normal Limits Normal Wi thin Normal Limits [facility] Comment on above: Performed By: #### B MP, LIPA, YVETTE, LIVER #### [facility] [address] [address] [address] Idania Roldan Covid-19 PCR ([facility])on 08-11 SARS-CoV-2 (COVID-19) RNA MAMIE+probe Ql (Unsp spec) Not detected Normal NOT DETECTED [facility] Comment on above: Result Comment: This test is not yet approved or cleared by the [place] FDA. When there are no FDA-approved or cleared tests available, and other criteria are met, FDA can make tests available under an emergency access mechanism called an Emergency Use Authorization (EUA). The EUA for this test is supported by the Inspector Final Assembly [employer] of Health and Human Service's (HHS's) declaration [...] with SARS-CoV-2. Performed By: #### B MP, JOSE ALBERTO, YVETTE, LIVER #### [facility] [address] [place] [address] Dr. Idania Roldan CBC AUTO DIFFon 08-21-2022 BASO # 0.0 103/ul Normal 0.0-0.1 [facility] Comment on above: Performed By: #### P T, PTT #### [facility] [address] [place] [address] Dr. Idania Roldan Basophils/100 WBC (Bld) 0.4 % Normal 0.2-2.0 [facility] Comment on above: Performed By: #### P T, PTT #### [facility] [address] [place] [address] Dr. Idania Roldan EO # 0.1 103/ul Normal 0.0-0.7 [facility] Comment on above: Performed By: #### P T, PTT #### [facility] [address] [place] [address] Dr. Idania Rlodan Eosinophils/100 WBC (Bld) 1.3 % Normal 0.9-7.0 [facility] Comment on above: Performed By: #### P T, PTT #### [facility] [address] [place] [address] Dr. Idania Roldan Erythrocyte distribution width (RBC) [Ratio] 15.3 % Critically high 11.0-15.0 [facility] Comment on above: Performed By: #### P T, PTT #### [facility] [address] [place] [address] Dr. Idania Roldan Hematocrit (Bld) [Volume fraction] 32.1 % Critically low 36.0-48.0 [facility] Comment on above: Performed By: #### P T, PTT #### [facility] [address] [place] [address] Dr. Idania Roldan Hemoglobin (Bld) [Mass/Vol] 9.9 g/dL Critically low 12.0-16.0 [facility] Comment on above: Performed By: #### P T, PTT #### [facility] [address] [address] [address] Idania Roldan IG # 0.01 10e3/ul Normal 0.00-0.03 [facility] Comment on above: Performed By: #### P T, PTT #### [facility] [address] [address] [address] Idania Roldan IG % 0.1 % Normal 0.0-0.5 [facility] Comment on above: Performed By: #### P T, PTT #### [facility] [address] [address] [address] Idania Roldan LYMPH # 2.7 103/ul Normal 1.2-3.8 [facility] Comment on above: Performed By: #### P T, PTT #### [facility] [address] [place] [address] Dr. Idania Roldan Lymphocytes/100 WBC (Bld) 35.7 % Normal 20.5-60.0 [facility] Comment on above: Performed By: #### P T, PTT #### [facility] [address] [address] [address] Idania Roldan MANUAL DIFF REQ NO Normal [facility] Comment on above: Performed By: #### P T, PTT #### [facility] [address] [address] [address] Idania Roldan MCH (RBC) [Entitic mass] 24.8 pg Critically low 26.7-34.0 [facility] Comment on above: Performed By: #### P T, PTT #### [facility] [address] [address] [address] Idania Roldan MCHC (RBC) [Mass/Vol] 30.8 g/dL Normal 29.9-35.2 [facility] Comment on above: Performed By: #### P T, PTT #### [facility] [address] [address] [address] Idania Roldan MCV (RBC) [Entitic vol] 80.5 fL Critically low 81.0-99.0 [facility] Comment on above: Performed By: #### P T, PTT #### [facility] [address] [place] [address] Dr. Idania Roldan MONO # 0.5 103/ul Normal 0.3-0.8 [facility] Comment on above: Performed By: #### P T, PTT #### [facility] [address] [place] [address] Dr. Idania Roldan Monocytes/100 WBC (Bld) 6.1 % Normal 1.7-12.0 [facility] Comment on above: Performed By: #### P T, PTT #### [facility] [address] [place] [address] Dr. Idania Roldan NEUT # 4.2 103/ul Normal 1.4-6.5 [facility] Comment on above: Performed By: #### P T, PTT #### [facility] [address] [place] [address] Dr. Idania Roldan Neutrophils/100 WBC (Bld) 56.4 % Normal 43.0-75.0 [facility] Comment on above: Performed By: #### P T, PTT #### [facility] [address] [place] [address] Dr. Idania Roldan Platelet mean volume (Bld) [Entitic vol] 9.4 fL Critically low 9.5-13.5 [facility] Comment on above: Performed By: #### P T, PTT #### [facility] [address] [place] [address] Dr. Idania Roldan PLT 296 103/ul Normal 150-450 [facility] Comment on above: Performed By: #### P T, PTT #### [facility] [address] [place] [address] Dr. Idania Roldan RBC 3.99 106/ul Critically low 4.20-5.40 [facility] Comment on above: Performed By: #### P T, PTT #### [facility] [address] [place] [address] Dr. Idania Roldan WBC 7.5 103/ul Normal 4.0-11.0 [facility] Comment on above: Performed By: #### P T, PTT #### [facility] [address] [address] [address] ABD/PELV W CONon [...] RUSSELL DUFF Date: 2022-08-21 12:35 Normal [facility] ER URINE PROFILEon 2 Bilirubin Ql (U) Unable to perform te sting due to color interference. Abnormal NEGATIVE [facility] Comment on above: Performed By: #### B MP, LIPA, YVETTE, LIVER #### [facility] [address] [place], [place] [address] Dr. Idania Roldan Clarity (U) TURBID Abnormal CLEAR [facility] Comment on above: Performed By: #### B MP, LIPA, YVETTE, LIVER #### [facility] [address] [place] [address] Dr. Idania Roldan Color (U) RED Abnormal YELLOW [facility] Comment on above: Performed By: #### B MP, LIPA, YVETTE, LIVER #### [facility] [address] [place] [address] Dr. Idania Roldan ERUAHD A micrscopic examina tion will be performed if indicated. Normal [facility] Comment on above: Performed By: #### B MP, LIPA, YVETTE, LIVER #### [facility] [address] [place] [address] Dr. Idania Roldan Glucose Ql (U) Unable to perform te sting due to color interference. Abnormal NEGATIVE [facility] Comment on above: Performed By: #### B MP, LIPA, YVETTE, LIVER #### [facility] [address] [place] [address] Dr. Idania Roldan Hemoglobin Ql (U) Unable to perform te sting due to color interference. Abnormal NEGATIVE [facility] Comment on above: Performed By: #### B MP, LIPA, YVETTE, LIVER #### [facility] [address] [place] [address] Dr. Idania Roldan Ketones Ql (U) Unable to perform te sting due to color interference. Abnormal NEGATIVE [facility] Comment on above: Performed By: #### B MP, LIPA, YVETTE, LIVER #### [facility] [address] [place] [address] Dr. Idania Roldan LEUKOCYTES Unable to perform te sting due to color interference. Abnormal NEGATIVE [facility] Comment on above: Performed By: #### B MP, LIPA, YVETTE, LIVER #### [facility] [address] [place] [address] Dr. Idania Roldan Nitrite Ql (U) Unable to perform te sting due to color interference. Abnormal NEGATIVE [facility] Comment on above: Performed By: #### B MP, LIPA, YVETTE, LIVER #### [facility] [address] [place] [address] Dr. Idania Roldan pH Unable to perform te sting due to color interference. Abnormal 5-9 [facility] Comment on above: Performed By: #### B MP, LIPA, YVETTE, LIVER #### [facility] [address] [place] [address] Dr. Idania Roldan SPEC GRAVITY 1.020 Normal 1.005-<=1.02 5 [facility] Comment on above: Performed By: #### B MP, LIPA, YVETTE, LIVER #### [facility] [address] [place] [address] Dr. Idania Roldan UA PROTEIN Unable to perform te sting due to color interference. Normal NEGATIVE/ TRACE [facility] Comment on above: Performed By: #### B MP, LIPA, YVETTE, LIVER #### [facility] [address] [place] [address] Dr. Idania Roldan UR MICRO IND INDICATED Normal [facility] Comment on above: Performed By: #### B MP, LIPA, YVTETE, LIVER #### [facility] [address] [place] [address] Dr. Idania Roldan UROBILINOGEN Unable to perform te sting due to color interference. Normal 0.2 - 1.0 [facility] Comment on above: Performed By: #### B MP, LIPA, YVETTE, LIVER #### [facility] [address] [place] [address] Dr. Idania Roldan PROF 14(COMP METB)on 022 Albumin [Mass/Vol] 4.2 g/dL Normal 3.4-5.0 [facility] Comment on above: Performed By: #### P T, PTT #### [facility] [address] [place] [address] Dr. Idania Roldan Albumin/Globulin [Mass ratio] 1.0 {ratio} Normal [facility] Comment on above: Performed By: #### P T, PTT #### [facility] [address] [place] [address] Dr. Idania Roldan ALP [Catalytic activity/Vol] 91 U/L Normal 46-116 [facility] Comment on above: Performed By: #### P T, PTT #### [facility] [address] [place] [address] Dr. Idania Roldan ALT [Catalytic activity/Vol] 15 U/L Normal 14-59 [facility] Comment on above: Performed By: #### P T, PTT #### [facility] [address] [place] [address] Dr. Idania Roldan Anion gap [Moles/Vol] 9.6 mmol/L Normal [facility] Comment on above: Performed By: #### P T, PTT #### [facility] [address] [address] [address] Idania Roldan AST [Catalytic activity/Vol] 14 U/L Critically low 15-37 [facility] Comment on above: Performed By: #### P T, PTT #### [facility] [address] [place] [address] Dr. Idania Roldan Bilirubin [Mass/Vol] 0.2 mg/dL Normal 0.2-1.0 [facility] Comment on above: Performed By: #### P T, PTT #### [facility] [address] [place] [address] Dr. Idania Roldan Calcium [Mass/Vol] 9.2 mg/dL Normal 8.5-10.1 [facility] Comment on above: Performed By: #### P T, PTT #### [facility] [address] [place] [address] Dr. Idania Roldan Chloride [Moles/Vol] 103 mmol/L Normal 98-107 [facility] Comment on above: Performed By: #### P T, PTT #### [facility] [address] [place] [address] Dr. Idania Roldan CO2 [Moles/Vol] 31.2 mmol/L Normal 21.0-32.0 [facility] Comment on above: Performed By: #### P T, PTT #### [facility] [address] [place] [address] Dr. Idania Roldan Creatinine [Mass/Vol] 0.76 mg/dL Normal 0.55-1.02 [facility] Comment on above: Performed By: #### P T, PTT #### [facility] [address] [place] [address] Dr. Idania Roldan EGFR-AF GIBRALTARIAN >60 Normal >=60 [facility] Comment on above: Performed By: #### P T, PTT #### [facility] [address] [address] [address] Idania Roldan EGFR-NON AF GIBRALTARIAN >60 Normal >=60 [facility] Comment on above: Performed By: #### P T, PTT #### [facility] [address] [address] [address] Idania Roldan Globulin (S) [Mass/Vol] 4.2 g/dL Normal [facility] Comment on above: Performed By: #### P T, PTT #### [facility] [address] [address] [address] Idania Roldan Glucose [Mass/Vol] 107 mg/dL Critically high 74-106 [facility] Comment on above: Performed By: #### P T, PTT #### [facility] [address] [address] [address] Idania Roldan Potassium [Moles/Vol] 3.8 mmol/L Normal 3.5-5.1 [facility] Comment on above: Performed By: #### P T, PTT #### [facility] [address] [address] [address] Idania Roldan Protein [Mass/Vol] 8.4 g/dL Critically high 6.4-8.2 [facility] Comment on above: Performed By: #### P T, PTT #### [facility] [address] [address] [address] Idania Roldan Sodium [Moles/Vol] 140 mmol/L Normal 136-145 [facility] Comment on above: Performed By: #### P T, PTT #### [facility] [address] [address] [address] Idania Roldan Urea nitrogen [Mass/Vol] 12.0 mg/dL Normal 7.0-18.0 [facility] Comment on above: Performed By: #### P T, PTT #### [facility] [address] [address] [address] Idania Roldan Urea nitrogen/Creatinine [Mass ratio] 15.8 mg/mg Normal [facility] Comment on above: Performed By: #### P T, PTT #### [facility] [address] [place] [address] Dr. Idania Roldan URINE MICROSCOPIC ONLYon BACTERIA NONE SEEN Normal NONE SEEN [facility] Comment on above: Performed By: #### B MP, LIPA, YVETTE, LIVER #### [facility] [address] [place] [address] Dr. Idania Roldan Bacteria identified Cx Nom (U) NOT INDICATED Normal [facility] Comment on above: Performed By: #### B MP, LIPA, YVETTE, LIVER #### [facility] [address] [place] [address] Dr. Idania Roldan CAST NONE SEEN Normal NONE SEEN [facility] Comment on above: Performed By: #### B MP, LIPA, YVETTE, LIVER #### [facility] [address] [place] [address] Dr. Idania Roldan Crystals LM Nom (Urine sed) NONE SEEN Normal NONE SEEN [facility] Comment on above: Performed By: #### B MP, LIPA, YVETTE, LIVER #### [facility] [address] [place] [address] Dr. Idania Roldan Epithelial cells LM Ql (Urine sed) RARE Normal NONE SEEN /RARE [facility] Comment on above: Performed By: #### B MP, LIPA, YVETTE, LIVER #### [facility] [address] [place] [address] Dr. Idania Roldan MUCOUS NONE SEEN Normal NONE SEEN [facility] Comment on above: Performed By: #### B MP, LIPA, YVETTE, LIVER #### [facility] [address] [place] [address] Dr. Idania Roldan RBC (U) [#/Vol] /uL Abnormal 0-2 [facility] Comment on above: Performed By: #### B MP, LIPA, YVETTE, LIVER #### [facility] [address] [place] [address] Dr. Idania Roldan WBC 2-5 Abnormal NONE SEEN [facility] Comment on above: Performed By: #### B MP, LIPA, YVETTE, LIVER #### [facility] [address] [place] [address] Dr. Idania Roldan CBC AUTO DIFFon 08-19-2022 BASO # 0.0 103/ul Normal 0.0-0.1 [facility] Comment on above: Performed By: #### P T, PTT #### [facility] [address] [place] [address] Dr. Idania Roldan Basophils/100 WBC (Bld) 0.4 % Normal 0.2-2.0 [facility] Comment on above: Performed By: #### P T, PTT #### [facility] [address] [place] [address] Dr. Idania Roldan EO # 0.1 103/ul Normal 0.0-0.7 [facility] Comment on above: Performed By: #### P T, PTT #### [facility] [address] [place] [address] Dr. Idania Roldan Eosinophils/100 WBC (Bld) 2.0 % Normal 0.9-7.0 [facility] Comment on above: Performed By: #### P T, PTT #### [facility] [address] [place] [address] Dr. Idania Roldan Erythrocyte distribution width (RBC) [Ratio] 14.8 % Normal 11.0-15.0 [facility] Comment on above: Performed By: #### P T, PTT #### [facility] [address] [place] [address] Dr. Idania Roldan Hematocrit (Bld) [Volume fraction] 31.5 % Critically low 36.0-48.0 [facility] Comment on above: Performed By: #### P T, PTT #### [facility] [address] [place] [address] Dr. Idania Roldan Hemoglobin (Bld) [Mass/Vol] 9.5 g/dL Critically low 12.0-16.0 [facility] Comment on above: Performed By: #### P T, PTT #### [facility] [address] [place] [address] Dr. Idania Roldan IG # 0.01 10e3/ul Normal 0.00-0.03 [facility] Comment on above: Performed By: #### P T, PTT #### [facility] [address] [place] [address] Dr. Idania Roldan IG % 0.2 % Normal 0.0-0.5 [facility] Comment on above: Performed By: #### P T, PTT #### [facility] [address] [address] [address] Idania Roldan LYMPH # 1.4 103/ul Normal 1.2-3.8 [facility] Comment on above: Performed By: #### P T, PTT #### [facility] [address] [place] [address] Dr. Idania Roldan Lymphocytes/100 WBC (Bld) 29.9 % Normal 20.5-60.0 [facility] Comment on above: Performed By: #### P T, PTT #### [facility] [address] [place] [address] Dr. Idania Roldan MANUAL DIFF REQ NO Normal [facility] Comment on above: Performed By: #### P T, PTT #### [facility] [address] [place] [address] Dr. Idania Roldan MCH (RBC) [Entitic mass] 24.4 pg Critically low 26.7-34.0 [facility] Comment on above: Performed By: #### P T, PTT #### [facility] [address] [place] [address] Dr. Idania Roldan MCHC (RBC) [Mass/Vol] 30.2 g/dL Normal 29.9-35.2 [facility] Comment on above: Performed By: #### P T, PTT #### [facility] [address] [place] [address] Dr. Idania Roldan MCV (RBC) [Entitic vol] 80.8 fL Critically low 81.0-99.0 [facility] Comment on above: Performed By: #### P T, PTT #### [facility] [address] [place] [address] Dr. Idania Roldan MONO # 0.2 103/ul Critically low 0.3-0.8 [facility] Comment on above: Performed By: #### P T, PTT #### [facility] [address] [place] [address] Dr. Idania Roldan Monocytes/100 WBC (Bld) 5.2 % Normal 1.7-12.0 [facility] Comment on above: Performed By: #### P T, PTT #### [facility] [address] [place] [address] Dr. Idania Roldan NEUT # 2.9 103/ul Normal 1.4-6.5 [facility] Comment on above: Performed By: #### P T, PTT #### [facility] [address] [place] [address] Dr. Idania Roldan Neutrophils/100 WBC (Bld) 62.3 % Normal 43.0-75.0 [facility] Comment on above: Performed By: #### P T, PTT #### [facility] [address] [place] [address] Dr. Idania Roldan Platelet mean volume (Bld) [Entitic vol] 8.6 fL Critically low 9.5-13.5 [facility] Comment on above: Performed By: #### P T, PTT #### [facility] [address] [place] [address] Dr. Idania Roldan PLT 269 103/ul Normal 150-450 [facility] Comment on above: Performed By: #### P T, PTT #### [facility] [address] [place] [address] Dr. Idania Roldan RBC 3.90 106/ul Critically low 4.20-5.40 [facility] Comment on above: Performed By: #### P T, PTT #### [facility] [address] [place] [address] Dr. Idania Roldan WBC 4.6 103/ul Normal 4.0-11.0 [facility] Comment on above: Performed By: #### P T, PTT #### [facility] [address] [place] [address] Dr. Idania Roldan PROF CHEM 8 (BAS METB)on Anion gap [Moles/Vol] 9.0 mmol/L Normal [facility] Comment on above: Performed By: #### B MP, LIPA, YVETTE, LIVER #### [facility] [address] [address] [address] Idania Roldan Calcium [Mass/Vol] 9.1 mg/dL Normal 8.5-10.1 [facility] Comment on above: Performed By: #### B MP, LIPA, YVETTE, LIVER #### [facility] [address] [place] [address] Dr. Idania Roldan Chloride [Moles/Vol] 104 mmol/L Normal 98-107 [facility] Comment on above: Performed By: #### B MP, LIPA, YVETTE, LIVER #### [facility] [address] [place] [address] Dr. Idania Roldan CO2 [Moles/Vol] 31.5 mmol/L Normal 21.0-32.0 [facility] Comment on above: Performed By: #### B MP, LIPA, YVETTE, LIVER #### [facility] [address] [address] [address] Idania Roldan Creatinine [Mass/Vol] 0.59 mg/dL Normal 0.55-1.02 [facility] Comment on above: Performed By: #### B MP, LIPA, YVETTE, LIVER #### [facility] [address] [place] [address] Dr. Idania Roldan EGFR-AF GIBRALTARIAN >60 Normal >=60 [facility] Comment on above: Performed By: #### B MP, LIPA, YVETTE, LIVER #### [facility] [address] [place] [address] Dr. Idania Roldan EGFR-NON AF GIBRALTARIAN >60 Normal >=60 [facility] Comment on above: Performed By: #### B MP, LIPA, YVETTE, LIVER #### [facility] [address] [place] [address] Dr. Idania Roldan Glucose [Mass/Vol] 90 mg/dL Normal 74-106 [facility] Comment on above: Performed By: #### B MP, LIPA, YVETTE, LIVER #### [facility] [address] [place] [address] Dr. Idania Roldan Potassium [Moles/Vol] 4.5 mmol/L Normal 3.5-5.1 [facility] Comment on above: Performed By: #### B MP, LIPA, YVETTE, LIVER #### [facility] [address] [place] [address] Dr. Idania Roldan Sodium [Moles/Vol] 140 mmol/L Normal 136-145 [facility] Comment on above: Performed By: #### B MP, LIPA, YVETTE, LIVER #### [facility] [address] [place] [address] Dr. Idania Roldan Urea nitrogen [Mass/Vol] 8.0 mg/dL Normal 7.0-18.0 [facility] Comment on above: Performed By: #### B MP, LIPA, YVETTE, LIVER #### [facility] [address] [place] [address] Dr. Idania Roldan Urea nitrogen/Creatinine [Mass ratio] 13.6 mg/mg Normal [facility] Comment on above: Performed By: #### B MP, LIPA, YVETTE, LIVER #### [facility] [address] [place] [address] Dr. Idania Roldan PROTIMEon 08-19-2022 INR Coag (PPP) [Relative time] 0.93 {INR} Normal [facility] Comment on above: Performed By: #### B MP, LIPA, YVETTE, LIVER #### [facility] [address] [place] [address] Dr. Idania Roldan INR GUIDELINES SEE BELOW Normal [facility] Comment on above: Result Comment: TARUN RED INR: 2.0 - 3.0 CONDITIONS NOT LISTED BELOW 2.5 - 3.5 FOR PROSTHETIC HEART VALVE REPLACEMENT 2.5 - 3.5 RECURRENT THROMBOSIS Performed By: #### B MP, LIPA, YVETTE, LIVER #### [facility] [address] [place] [address] Dr. Idania Roldan PT Coag (PPP) [Time] 10.1 s Normal 9.0-11.6 [facility] Comment on above: Performed By: #### B MP, LIPA, YVETTE, LIVER #### [facility] [address] [place], [place] [address] Dr. Idania Roldan PTTon 08-19-2022 aPTT Coag (Bld) [Time] 28.1 s Normal 22.3-36.2 [facility] Comment on above: Performed By: #### B MP, LIPA, YVETTE, LIVER #### [facility] [address] [address] [address] Idania Roldan Covid-19 PCR ([facility])on 07-11 SARS-CoV-2 (COVID-19) RNA MAMIE+probe Ql (Unsp spec) Not detected Normal NOT DETECTED [facility] Comment on above: Result Comment: This test is not yet approved or cleared by the [place] FDA. When there are no FDA-approved or cleared tests available, and other criteria are met, FDA can make tests available under an emergency access mechanism called an Emergency Use Authorization (EUA). The EUA for this test is supported by the Inspector Final Assembly Mechanical of Health and Human Service's (HHS's) declaration [...] Performed By: #### P T, PTT #### [facility] [address] [place] [address] [address] Idania Roldan CBC AUTO DIFFon 07-10-2022 BASO # 0.0 103/ul Normal 0.0-0.1 [facility] Comment on above: Performed By: #### P T, PTT #### [facility] [address] [place] [address] Dr. Idania Roldan Basophils/100 WBC (Bld) 0.2 % Normal 0.2-2.0 [facility] Comment on above: Performed By: #### P T, PTT #### [facility] [address] [place] [address] Dr. Idania Roldan EO # 0.1 103/ul Normal 0.0-0.7 [facility] Comment on above: Performed By: #### P T, PTT #### [facility] [address] [place] [address] Dr. Idania Roldan Eosinophils/100 WBC (Bld) 1.3 % Normal 0.9-7.0 [facility] Comment on above: Performed By: #### P T, PTT #### [facility] [address] [place] [address] Dr. Idania Roldan Erythrocyte distribution width (RBC) [Ratio] 16.4 % Critically high 11.0-15.0 [facility] Comment on above: Performed By: #### P T, PTT #### [facility] [address] [place] [address] Dr. Idania Roldan Hematocrit (Bld) [Volume fraction] 33.2 % Critically low 36.0-48.0 [facility] Comment on above: Performed By: #### P T, PTT #### [facility] [address] [place] [address] Dr. Idania Roldan Hemoglobin (Bld) [Mass/Vol] 10.3 g/dL Critically low 12.0-16.0 [facility] Comment on above: Performed By: #### P T, PTT #### [facility] [address] [place] [address] Dr. Idania Roldan IG # 0.01 10e3/ul Normal 0.00-0.03 [facility] Comment on above: Performed By: #### P T, PTT #### [facility] [address] [place] [address] Dr. Idania Roldan IG % 0.2 % Normal 0.0-0.5 [facility] Comment on above: Performed By: #### P T, PTT #### [facility] [address] [place] [address] Dr. Idania Roldan LYMPH # 1.8 103/ul Normal 1.2-3.8 [facility] Comment on above: Performed By: #### P T, PTT #### [facility] [address] [place] [address] Dr. Idania Roldan Lymphocytes/100 WBC (Bld) 38.8 % Normal 20.5-60.0 [facility] Comment on above: Performed By: #### P T, PTT #### [facility] [address] [place] [address] Dr. Idania Roldan MANUAL DIFF REQ NO Normal [facility] Comment on above: Performed By: #### P T, PTT #### [facility] [address] [place] [address] Dr. Idania Roldan MCH (RBC) [Entitic mass] 25.9 pg Critically low 26.7-34.0 [facility] Comment on above: Performed By: #### P T, PTT #### [facility] [address] [place] [address] Dr. Idania Roldan MCHC (RBC) [Mass/Vol] 31.0 g/dL Normal 29.9-35.2 [facility] Comment on above: Performed By: #### P T, PTT #### [facility] [address] [place] [address] Dr. Idania Roldan MCV (RBC) [Entitic vol] 83.4 fL Normal 81.0-99.0 [facility] Comment on above: Performed By: #### P T, PTT #### [facility] [address] [place] [address] Dr. Idania Roldan MONO # 0.3 103/ul Normal 0.3-0.8 [facility] Comment on above: Performed By: #### P T, PTT #### [facility] [address] [place] [address] Dr. Idania Roldan Monocytes/100 WBC (Bld) 6.1 % Normal 1.7-12.0 [facility] Comment on above: Performed By: #### P T, PTT #### [facility] [address] [address] [address] Idania Roldan NEUT # 2.5 103/ul Normal 1.4-6.5 [facility] Comment on above: Performed By: #### P T, PTT #### [facility] [address] [address] [address] Idania Roldan Neutrophils/100 WBC (Bld) 53.4 % Normal 43.0-75.0 [facility] Comment on above: Performed By: #### P T, PTT #### [facility] [address] [address] [address] Idania Roldan Platelet mean volume (Bld) [Entitic vol] 10.1 fL Normal 9.5-13.5 [facility] Comment on above: Performed By: #### P T, PTT #### [facility] [address] [place] [address] Dr. Idania Roldan PLT 239 103/ul Normal 150-450 [facility] Comment on above: Performed By: #### P T, PTT #### [facility] [address] [place] [address] Dr. Idania Roldan RBC 3.98 106/ul Critically low 4.20-5.40 [facility] Comment on above: Performed By: #### P T, PTT #### [facility] [address] [place] [address] Dr. Idania Roldan WBC 4.6 103/ul Normal 4.0-11.0 [facility] Comment on above: Performed By: #### P T, PTT #### [facility] [address] [place] [address] Dr. Idania Roldan PROF CHEM 8 (BAS METB)on Anion gap [Moles/Vol] 8.4 mmol/L Normal [facility] Comment on above: Performed By: #### B MP #### [facility] [address] [place] [address] Dr. Idania Roldan Calcium [Mass/Vol] 9.3 mg/dL Normal 8.5-10.1 [facility] Comment on above: Performed By: #### B MP #### [facility] [address] [address] [address] Idania Roldan Chloride [Moles/Vol] 103 mmol/L Normal 98-107 [facility] Comment on above: Performed By: #### B MP #### [facility] [address] [address] [address] Idania Roldan CO2 [Moles/Vol] 32.9 mmol/L Critically high 21.0-32.0 [facility] Comment on above: Performed By: #### B MP #### [facility] [address] [address] [address] Idania Roldan Creatinine [Mass/Vol] 0.70 mg/dL Normal 0.55-1.02 [facility] Comment on above: Performed By: #### B MP #### [facility] [address] [address] [address] Idania Roldan EGFR-AF GIBRALTARIAN >60 Normal >=60 [facility] Comment on above: Performed By: #### B MP #### [facility] [address] [address] [address] Idania Roldan EGFR-NON AF GIBRALTARIAN >60 Normal >=60 [facility] Comment on above: Performed By: #### B MP #### [facility] [address] [address] [address] Idania Roldan Glucose [Mass/Vol] 73 mg/dL Critically low 74-106 [facility] Comment on above: Performed By: #### B MP #### [facility] [address] [address] [address] Idania Roldan Potassium [Moles/Vol] 4.3 mmol/L Normal 3.5-5.1 [facility] Comment on above: Performed By: #### B MP #### [facility] [address] [address] [address] Idania Roldan Sodium [Moles/Vol] 140 mmol/L Normal 136-145 [facility] Comment on above: Performed By: #### B MP #### [facility] [address] [place] [address] Dr. Idania Roldan Urea nitrogen [Mass/Vol] 16.0 mg/dL Normal 7.0-18.0 [facility] Comment on above: Performed By: #### B MP #### [facility] [address] [place] [address] Dr. Idania Roldan Urea nitrogen/Creatinine [Mass ratio] 22.9 mg/mg Normal [facility] Comment on above: Performed By: #### B MP #### [facility] [address] [place] [address] Dr. Idania Roldan PROTIMEon 07-10-2022 INR Coag (PPP) [Relative time] 1.00 {INR} Normal [facility] Comment on above: Performed By: #### P T, PTT #### [facility] [address] [place] [address] Dr. Idania Roldan INR GUIDELINES SEE BELOW Normal [facility] Comment on above: Result Comment: TARUN RED INR: 2.0 - 3.0 CONDITIONS NOT LISTED BELOW 2.5 - 3.5 FOR PROSTHETIC HEART VALVE REPLACEMENT 2.5 - 3.5 RECURRENT THROMBOSIS Performed By: #### P T, PTT #### [facility] [address] [place] [address] Dr. Idania Roldan PT Coag (PPP) [Time] 10.8 s Normal 9.0-11.6 [facility] Comment on above: Performed By: #### P T, PTT #### [facility] [address] [place] [address] Dr. Idania Roldan PTTon 07-10-2022 aPTT Coag (Bld) [Time] 29.3 s Normal 22.3-36.2 [facility] Comment on above: Performed By: #### P T, PTT #### [facility] [address] [place] [address] Dr. Idanai Roldan Operative Reporton Operative Report MR#: [id number] I [facility] Pt. Name: Elvi Moore Room #: [id number] Discharge 06/01/2022 Date: Birthdate: 1980 OPERATIVE REPORT DATE OF SURGERY: 06/01/2022 SURGEON: Kevin Lane M.D. PRINCIPAL WEB DEVELOPER: Duy Cavazos ANESTHESIA: General anesthesia. ESTIMATED BLOOD [...] arthrotomy was closed with soft #2 interrupted zyjleo-ve-eyokj suture. The remainder of the incision closed in layered fashion. Sterile dressing applied. At the conclusion of the case, all sponge and needle counts correct. I was present for the critical portions of this case. Electronically Signed by: Kevin Lane M.D. 06/09/2022 07:[address] M.D. Date Dict: 06/03/2022/07:15 A/Kevin Lane M.D. Date Trans: 06/03/2022 08:09 Christine/taylor [id number] cc: Arleth Acharya M.D. [address] [place] [address] [place] [facility] *ANAEROBIC CULTUREon 022 *ANAEROBIC CULTURE Clinical Report: (D) Specimen/Source: FLUID/INTRAOP SPEC Collected: 06/01/2022 14:08 Status: Final Last Updated: 06/06/2022 06:35 (1) 1. LEFT KNEE JOINT FLUID CULT RES (Final) No Anaerobes Isolated 5 Days Normal [facility] Comment on above: Order Comment: 1. LE FT KNEE JOINT FLUID Performed By: #### 3 0312 ####[facility] *ANAEROBIC CULTURE Clinical Report: (D) Specimen/Source: TISSUE/INTRAOP SPEC Collected: 06/01/2022 14:08 Status: Final Last Updated: 06/06/2022 06:35 (1) 2. LEFT KNEE MEDIAL SYNOVIUM CULT RES (Final) No Anaerobes Isolated 5 Days Normal [facility] Comment on above: Order Comment: 2. LE FT KNEE MEDIAL SYNOVIUM Performed By: #### 6 1405 #### [facility] [address] *ANAEROBIC CULTURE Clinical Report: (D) Specimen/Source: TISSUE/INTRAOP SPEC Collected: 06/01/2022 14:08 Status: Final Last Updated: 06/06/2022 06:35 (1) 3. LEFT KNEE LATERAL SYNOVIUM CULT RES (Final) No Anaerobes Isolated 5 Days Normal [facility] Comment on above: Order Comment: 3. LE FT KNEE LATERAL SYNOVIUM Performed By: #### 6 1405 #### [facility] [address] *BODY FLUID CULTUREon 2021 *BODY FLUID CULTURE Clinical Report: (D) Specimen/Source: FLUID/INTRAOP SPEC Collected: 06/01/2022 14:08 Status: Final Last Updated: 06/06/2022 06:39 (1) 1. LEFT KNEE JOINT FLUID GRAM (Final) Quantity Not Sufficient CULT RES (Final) No Growth Day 5 Normal [facility] Comment on above: Order Comment: 1. LE FT KNEE JOINT FLUID Performed By: #### 3 0318 ####[facility] [address] *TISSUE CULTUREon 06-01-2022 *TISSUE CULTURE Clinical Report: (D) Specimen/Source: TISSUE/INTRAOP SPEC Collected: 06/01/2022 14:08 Status: Final Last Updated: 06/06/2022 06:40 (1) 2. LEFT KNEE MEDIAL SYNOVIUM GRAM (Final) Many Polys No Bacteria Seen CULT RES (Final) No Growth Day 5 Normal [facility] Comment on above: Order Comment: 2. LE FT KNEE MEDIAL SYNOVIUM Performed By: #### 3 0338 ####[facility] [place], [place] [address] [place] [address] *TISSUE CULTURE Clinical Report: (D) Specimen/Source: TISSUE/INTRAOP SPEC Collected: 06/01/2022 14:08 Status: Final Last Updated: 06/06/2022 06:39 (1) 3. LEFT KNEE LATERAL SYNOVIUM GRAM (Final) Many Polys No Bacteria Seen CULT RES (Final) No Growth Day 5 Normal [facility] Comment on above: Order Comment: 3. LE FT KNEE LATERAL SYNOVIUM Performed By: #### 3 0338 ####[facility] [address] POC GLUCOSE LABon 06-01-2022 Glucose [Mass/Vol] 86 mg/dL Normal 70-100 [facility] Comment on above: Performed By: #### 8 5499 #### [facility] [address] PORTABLE KNEE LEFT 2 VWSon 0 06-01-2022 PORTABLE KNEE LEFT 2 VWS [facility] Department of Radiology [address] [place] [address] Patient Name: ELVI MOORE : 1980 Sex: F Age: Race: White Pt. Location: OUTP Patient Status: D Ordered Date: 06/01/2022 3:05:00 PM Completed Date: 06/01/2022 04:06 PM Requesting Provider: ALVIN CAVAZOS Attending Provider: KEVIN LANE Report Copy To: Signs & Symptoms: Post OP History: Comments: Hardware Evaluation, in PACU Exam: PORTABLE KNEE LEFT 2 VWS PORTABLE KNEE LEFT 2 S 06/01/2022 4:06 PM CLINICAL INDICATIONS: Pain. Knee [...] planned Electronically signed: Yvette Andrade. Transcribed by: [email or web address], User Resident: Electronically Signed by: YVETTE ANDRADE @ 06/02/2022 08:53 AM Normal [facility] Comment on above: Order Comment: Hardw are Evaluation, in PACU *MRSA/MSSA DNA NASALon 05-26 *MRSA/MSSA DNA NASAL Clinical Report: (D) Specimen: NASAL SWAB Collected: 05/26/2022 15:23 Status: Final Last Updated: 05/27/2022 13:43 MSSA DNA (Final) Negative MRSA DNA (Final) Negative Normal [facility] Comment on above: Performed By: #### 3 1595 #### [address] [place] [address], [facility] C REACTIVE PROTEINon 022 CRP [Mass/Vol] 1.3 mg/L Normal 0.0-7.0 [facility] Comment on above: Performed By: #### 6 1405 #### [facility] [address] [place] [address], [facility] CBC W/DIFFon 05-26-2022 ABS IMM GRANS 0.0 10*3/uL Normal 0.0-0.2 [facility] Comment on above: Performed By: #### 6 1405 #### [facility] [address] [place] [address], [facility] ABS NEUTROPHILS 2.5 10*3/uL Normal 1.6-7.6 [facility] Comment on above: Performed By: #### 6 1405 #### [facility] [address] [place] [address], [facility] Basophils (Bld) [#/Vol] 0.0 10*3/uL Normal 0.0-0.2 [facility] Comment on above: Performed By: #### 6 1405 #### [facility] [address] [place] [address], [facility] Basophils/100 WBC (Bld) 0.3 % Normal 0.0-1.0 [facility] Comment on above: Performed By: #### 6 1405 #### [facility] [address] [place] [address], [facility] Eosinophils (Bld) [#/Vol] 0.1 10*3/uL Normal 0.0-0.5 [facility] Comment on above: Performed By: #### 6 1405 #### [facility] [address] [place] [address], [facility] Eosinophils/100 WBC (Bld) 1.5 % Normal 0.0-6.0 [facility] Comment on above: Performed By: #### 6 1405 #### [facility] [address] [place] [address], [facility] Erythrocyte distribution width (RBC) [Ratio] 15.9 % High 11.5-15.0 [facility] Comment on above: Performed By: #### 6 1405 #### [facility] [address] [facility] [place] [address], [facility] Hematocrit (Bld) [Volume fraction] 35.0 % Low 36.0-45.0 [facility] Comment on above: Performed By: #### 6 1405 #### [facility] [address] [facility]. [address] Hemoglobin (Bld) [Mass/Vol] 10.6 g/dL Low 12.0-15.0 [facility] Comment on above: Performed By: #### 6 1405 #### [facility] [address] IMMATURE GRANS 0.2 % Normal 0.0-1.0 [facility] Comment on above: Performed By: #### 6 1405 #### [facility] [address] Lymphocytes (Bld) [#/Vol] 2.8 10*3/uL Normal 1.2-4.0 [facility] Comment on above: Performed By: #### 6 1405 #### [facility] [address] [place] [address], [facility] Lymphocytes/100 WBC (Bld) 48.0 % High 20.0-45.0 [facility] Comment on above: Performed By: #### 6 1405 #### [facility] [address] [facility] [place] [address], [facility] MCH (RBC) [Entitic mass] 24.5 pg Low 27.0-33.0 [facility] Comment on above: Performed By: #### 6 1405 #### [facility] [address] [facility] [place] [address], [facility] MCHC (RBC) [Mass/Vol] 30.3 g/dL Low 32.0-35.0 [facility] Comment on above: Performed By: #### 6 1405 #### [facility] [address] [facility] [place] [address], [facility] MCV (RBC) [Entitic vol] 81.0 fL Low 82.0-98.0 [facility] Comment on above: Performed By: #### 6 1405 #### [facility] [address] [facility] [place] [address], [facility] Monocytes (Bld) [#/Vol] 0.4 10*3/uL Normal 0.1-1.0 [facility] Comment on above: Performed By: #### 6 1405 #### [facility] [address] [facility]. [address] MONOS 6.8 % Normal 5.0-12.0 [facility] Comment on above: Performed By: #### 6 1405 #### [facility] [address] Neutrophils/100 WBC (Bld) 43.2 % Normal 40.0-72.0 [facility] Comment on above: Performed By: #### 6 1405 #### [facility] [address] [place] [address], [facility] Nucleated RBC/100 WBC (Bld) [Ratio] 0 % Normal 0-0 [facility] Comment on above: Performed By: #### 6 1405 #### [facility] [address] [facility] [place] [address], [facility] PLAT CNT 246 10*3/uL Normal 150-400 [facility] Comment on above: Performed By: #### 6 1405 #### [facility] [address] [facility] [place] [address], [facility] RBC (Bld) [#/Vol] 4.32 10*6/uL Normal 3.80-5.00 [facility] Comment on above: Performed By: #### 6 1405 #### [facility] [address] [place] [address], [facility] WBC (Bld) [#/Vol] 5.87 10*3/uL Normal 4.00-10.60 [facility] Comment on above: Performed By: #### 6 1405 #### [facility] [address] HEMOGLOBIN A1Con 05-26-2022 Glucose [Moles/Vol] 100 mmol/L Normal [facility] Comment on above: Performed By: #### 3 1791 #### [facility] [address] [place] [address], [facility] HbA1c (Bld) [Mass fraction] 5.1 % Normal 4.0-6.0 [facility] Comment on above: Performed By: #### 3 1791 #### [facility] [address] SEDIMENTATION RATEon 022 SED RATE 17 mm/hr Normal 0-20 [facility] Comment on above: Performed By: #### 6 1405 #### [facility] [address] US KIDNEYS BLADDERon 022 US KIDNEYS [...] RUSSELL DUFF Date: 2022-05-02 16:18 Normal [facility] CBC AUTO DIFFon 04-29-2022 BASO # 0.0 103/ul Normal 0.0-0.1 [facility] Comment on above: Performed By: #### B MP, LIPA, YVETTE, LIVER #### [facility] [address] [place] [address] Dr. Idania Roldan Basophils/100 WBC (Bld) 0.3 % Normal 0.2-2.0 [facility] Comment on above: Performed By: #### B MP, LIPA, YVETTE, LIVER #### [facility] [address] [place] [address] Dr. Idania Roldan EO # 0.1 103/ul Normal 0.0-0.7 [facility] Comment on above: Performed By: #### B MP, LIPA, YVETTE, LIVER #### [facility] [address] [place] [address] Dr. Idania Roldan Eosinophils/100 WBC (Bld) 0.9 % Normal 0.9-7.0 [facility] Comment on above: Performed By: #### B MP, LIPA, YVETTE, LIVER #### [facility] [address] [place] [address] Dr. Idania Roladn Erythrocyte distribution width (RBC) [Ratio] 15.4 % Critically high 11.0-15.0 [facility] Comment on above: Performed By: #### B MP, LIPA, YVETTE, LIVER #### [facility] [address] [place] [address] Dr. Idania Roldan Hematocrit (Bld) [Volume fraction] 36.0 % Normal 36.0-48.0 [facility] Comment on above: Performed By: #### B MP, LIPA, YVETTE, LIVER #### [facility] [address] [place] [address] Dr. Idania Roldan Hemoglobin (Bld) [Mass/Vol] 11.2 g/dL Critically low 12.0-16.0 [facility] Comment on above: Performed By: #### B MP, LIPA, YVETTE, LIVER #### [facility] [address] [place] [address] Dr. Idania Roldan IG # 0.02 10e3/ul Normal 0.00-0.03 [facility] Comment on above: Performed By: #### B MP, LIPA, YVETTE, LIVER #### [facility] [address] [place] [address] Dr. Idania Roldan IG % 0.3 % Normal 0.0-0.5 [facility] Comment on above: Performed By: #### B MP, LIPA, YVETTE, LIVER #### [facility] [address] [place] [address] Dr. Idania Roldan LYMPH # 2.5 103/ul Normal 1.2-3.8 [facility] Comment on above: Performed By: #### B MP, LIPA, YVETTE, LIVER #### [facility] [address] [place] [address] Dr. Idania Roldan Lymphocytes/100 WBC (Bld) 36.2 % Normal 20.5-60.0 [facility] Comment on above: Performed By: #### B MP, LIPA, YVETTE, LIVER #### [facility] [address] [place] [address] Dr. Idania Roldan MANUAL DIFF REQ NO Normal [facility] Comment on above: Performed By: #### B MP, LIPA, YVETTE, LIVER #### [facility] [address] [place] [address] Dr. Idania Roldan MCH (RBC) [Entitic mass] 24.9 pg Critically low 26.7-34.0 [facility] Comment on above: Performed By: #### B MP, LIPA, YVETTE, LIVER #### [facility] [address] [place] [address] Dr. Idania Roldan MCHC (RBC) [Mass/Vol] 31.1 g/dL Normal 29.9-35.2 [facility] Comment on above: Performed By: #### B MP, LIPA, YVETTE, LIVER #### [facility] [address] [place] [address] Dr. Idania Roldan MCV (RBC) [Entitic vol] 80.2 fL Critically low 81.0-99.0 [facility] Comment on above: Performed By: #### B MP, LIPA, YVETTE, LIVER #### [facility] [facility] [address] [place] [address] Dr. Idania Roldan MONO # 0.5 103/ul Normal 0.3-0.8 [facility] Comment on above: Performed By: #### B MP, LIPA, YVETTE, LIVER #### [facility] [address] [place] [address] Dr. Idania Roldan Monocytes/100 WBC (Bld) 6.7 % Normal 1.7-12.0 [facility] Comment on above: Performed By: #### B MP, LIPA, YVETTE, LIVER #### [facility] [address] [place] [address] Dr. Idania Roldan NEUT # 3.8 103/ul Normal 1.4-6.5 [facility] Comment on above: Performed By: #### B MP, LIPA, YVETTE, LIVER #### [facility] [address] [place] [address] Dr. Idania Roldan Neutrophils/100 WBC (Bld) 55.6 % Normal 43.0-75.0 [facility] Comment on above: Performed By: #### B MP, LIPA, YVETTE, LIVER #### [facility] [address] [place] [address] Dr. Idania Roldan Platelet mean volume (Bld) [Entitic vol] 9.9 fL Normal 9.5-13.5 [facility] Comment on above: Performed By: #### B MP, LIPA, YVETTE, LIVER #### [facility] [address] [place] [address] Dr. Idania Roldan PLT 265 103/ul Normal 150-450 [facility] Comment on above: Performed By: #### B MP, LIPA, YVETTE, LIVER #### [facility] [address] [place] [address] Dr. Idania Roldan RBC 4.49 106/ul Normal 4.20-5.40 [facility] Comment on above: Performed By: #### B MP, LIPA, YVETTE, LIVER #### [facility] [address] [place] [address] Dr. Idania Roldan WBC 6.8 103/ul Normal 4.0-11.0 [facility] Comment on above: Performed By: #### B MP, LIPA, YVETTE, LIVER #### [facility] [address] [place] [address] Dr. Idania Roldan ER URINE PROFILEon 2 Bilirubin Ql (U) Negative Normal NEGATIVE [facility] Comment on above: Performed By: #### P T, PTT #### [facility] [address] [place] [address] Dr. Idania Roldan Clarity (U) CLEAR Normal CLEAR [facility] Comment on above: Performed By: #### P T, PTT #### [facility] [address] [place] [address] Dr. Idania Roldan Color (U) LT. YELLOW Normal YELLOW [facility] Comment on above: Performed By: #### P T, PTT #### [facility] [address] [place] [address] Dr. Idania MENDOSA A micrscopic examina tion will be performed if indicated. Normal [facility] Comment on above: Performed By: #### P T, PTT #### [facility] [address] [place] [address] Dr. Idania Roldan Glucose Ql (U) Negative Normal NEGATIVE [facility] Comment on above: Performed By: #### P T, PTT #### [facility] [address] [place] [address] Dr. Idania Roldan Hemoglobin Ql (U) LARGE Abnormal NEGATIVE [facility] Comment on above: Performed By: #### P T, PTT #### [facility] [address] [place] [address] Dr. Idania Roldan Ketones Ql (U) Negative Normal NEGATIVE [facility] Comment on above: Performed By: #### P T, PTT #### [facility] [address] [place] [address] Dr. Idania Roldan LEUKOCYTES TRACE Abnormal NEGATIVE [facility] Comment on above: Performed By: #### P T, PTT #### [facility] [address] [place] [address] Dr. Idania Roldan Nitrite Ql (U) Negative Normal NEGATIVE [facility] Comment on above: Performed By: #### P T, PTT #### [facility] [address] [place] [address] Dr. Idania Roldan pH (U) 6.0 [pH] Normal 5-9 [facility] Comment on above: Performed By: #### P T, PTT #### [facility] [address] [place] [address] Dr. Idania Roldan SPEC GRAVITY 1.010 Normal 1.005-<=1.02 5 [facility] Comment on above: Performed By: #### P T, PTT #### [facility] [address] [place] [address] Dr. Idania Roldan UA PROTEIN Negative Normal NEGATIVE/ TRACE [facility] Comment on above: Performed By: #### P T, PTT #### [facility] [address] [place] [address] Dr. Idania Roldan UR MICRO IND INDICATED Normal [facility] Comment on above: Performed By: #### P T, PTT #### [facility] [address] [place] [address] Dr. Idania Roldan Urobilinogen Qn (U) 0.2 {Bryan'U}/dL Normal 0.2 - 1. 0 [facility] Comment on above: Performed By: #### P T, PTT #### [facility] [address] [place] [address] Dr. Idania Roldan PROF CHEM 8 (BAS METB)on Anion gap [Moles/Vol] 10.9 mmol/L Normal [facility] Comment on above: Performed By: #### P T, PTT #### [facility] [address] [place] [address] Dr. Idania Roldan Calcium [Mass/Vol] 8.9 mg/dL Normal 8.5-10.1 [facility] Comment on above: Performed By: #### P T, PTT #### [facility] [address] [address] [address] Idania Roldan Chloride [Moles/Vol] 104 mmol/L Normal 98-107 [facility] Comment on above: Performed By: #### P T, PTT #### [facility] [address] [address] [address] Idania Roldan CO2 [Moles/Vol] 28.9 mmol/L Normal 21.0-32.0 [facility] Comment on above: Performed By: #### P T, PTT #### [facility] [address] [address] [address] Idania Roldan Creatinine [Mass/Vol] 0.71 mg/dL Normal 0.55-1.02 [facility] Comment on above: Performed By: #### P T, PTT #### [facility] [address] [address] [address] Idania Roldan EGFR-AF GIBRALTARIAN >60 Normal >=60 [facility] Comment on above: Performed By: #### P T, PTT #### [facility] [address] [place] [address] Dr. Idania Roldan EGFR-NON AF GIBRALTARIAN >60 Normal >=60 [facility] Comment on above: Performed By: #### P T, PTT #### [facility] [address] [address] [address] Idania Roldan Glucose [Mass/Vol] 88 mg/dL Normal 74-106 [facility] Comment on above: Performed By: #### P T, PTT #### [facility] [address] [address] [address] Idania Roldan Potassium [Moles/Vol] 3.8 mmol/L Normal 3.5-5.1 [facility] Comment on above: Performed By: #### P T, PTT #### [facility] [address] [address] [address] Idania Roldan Sodium [Moles/Vol] 140 mmol/L Normal 136-145 [facility] Comment on above: Performed By: #### P T, PTT #### [facility] [address] [place] [address] Dr. Idania Roldan Urea nitrogen [Mass/Vol] 13.0 mg/dL Normal 7.0-18.0 [facility] Comment on above: Performed By: #### P T, PTT #### [facility] [address] [place] [address] Dr. Idania Roldan Urea nitrogen/Creatinine [Mass ratio] 18.3 mg/mg Normal [facility] Comment on above: Performed By: #### P T, PTT #### [facility] [address] [place] [address] Dr. Idania Roldan URINE MICROSCOPIC ONLYon BACTERIA NONE SEEN Normal NONE SEEN [facility] Comment on above: Performed By: #### P T, PTT #### [facility] [address] [place] [address] Dr. Idania Roldan Bacteria identified Cx Nom (U) NOT INDICATED Normal [facility] Comment on above: Performed By: #### P T, PTT #### [facility] [address] [place] [address] Dr. Idania Roldan CAST NONE SEEN Normal NONE SEEN [facility] Comment on above: Performed By: #### P T, PTT #### [facility] [address] [place] [address] Dr. Idania Roldan Crystals LM Nom (Urine sed) NONE SEEN Normal NONE SEEN [facility] Comment on above: Performed By: #### P T, PTT #### [facility] [address] [place] [address] Dr. Idania Roldan Epithelial cells LM Ql (Urine sed) FEW Abnormal NONE SEEN /RARE [facility] Comment on above: Performed By: #### P T, PTT #### [facility] [address] [place] [address] Dr. Idania Roldan MUCOUS NONE SEEN Normal NONE SEEN [facility] Comment on above: Performed By: #### P T, PTT #### [facility] [address] [place], [place] [address] Dr. Idania Roldan RBC 50-75 Abnormal 0-2 [facility] Comment on above: Performed By: #### P T, PTT #### [facility] [id number] Idania Roldan WBC 0-2 Abnormal NONE SEEN [facility] Comment on above: Performed By: #### P T, PTT #### [facility] [id number] Idania Roldan XR ABD FLAT UP_PA [...] RUSSELL DUFF Date: 2022-04-29 13:37 Normal [facility] US KIDNEYS BLADDERon 022 US KIDNEYS [...] by: RUSSELL DUFF Date: 2022-04-16 18:24 Normal [facility] CT LOWER EXTREMITY WO CONTRA ST LEFTon 04-07-2022 CT LOWER EXTREMITY WO CONTRAST LEFT [facility] Department of Radiology [address] [place] [address] Patient Name: ELVI MOORE : [...] arthroplasty. Electronically signed: Elvis Perez. Transcribed by: [email or web address], User Resident: Electronically Signed by: ELVIS PEREZ @ 04/12/2022 09:46 AM Normal [facility] Comment on above: Order Comment: , lef t knee C REACTIVE PROTEINon 022 CRP [Mass/Vol] 2.2 mg/L Normal 0.0-7.0 [facility] Comment on above: Performed By: #### 3 1791 #### [address] SEDIMENTATION RATEon 022 SED RATE 30 mm/hr High 0-20 [facility] Comment on above: Performed By: #### 5 6506 #### [facility] [address] [facility] 1 OR 2 VWS [facility] Department of Radiology [address] [place] [phone] Patient Name: ELVI MOORE : 1980 [...] report. Electronically signed: Sathya Christianson. Transcribed by: [email or web address], User Resident: Electronically Signed by: SATHYA CHRISTIANSON @ 02/13/2022 10:48 PM Normal [facility] Comment on above: Order Comment: LT KN EE REANNA Operative Reporton Operative Report MR#: [id number] S [facility] Pt. Name: Elvi Moore Room #: 0C Discharge Date: Birthdate: 1980 OPERATIVE REPORT DATE OF SURGERY: 02/12/2022 SURGEON: Kevin Lane M.D. PRINCIPAL WEB DEVELOPER: None. PREOPERATIVE DIAGNOSIS: Left total knee arthroplasty [...] Lane M.D. Date Trans: 02/12/2022 09:35 A/taylor [id number] cc: Arleth Acharya M.D. [address] [phone] Normal [facility] POC GLUCOSE LABon 02-12-2022 Glucose [Mass/Vol] 96 mg/dL Normal 70-100 [facility] Comment on above: Performed By: #### 8 5499 ####[facility] [place] [address], [facility] C REACTIVE PROTEINon 022 CRP [Mass/Vol] 1.7 mg/L Normal 0.0-7.0 [facility] Comment on above: Performed By: #### 6 1405 #### [facility] [address] [place] [address], [facility] SEDIMENTATION RATEon 022 SED RATE 18 mm/hr Normal 0-20 [facility] Comment on above: Performed By: #### 6 1405 #### [address] [address], [facility] KNEE LEFT 3 VWSon 12-26-2021 KNEE LEFT 3 VWS [facility] Department of Radiology [address] [place] [phone] Patient Name: ELVI MOORE : 1980 [...] report. Electronically signed: Yvette Desai. Transcribed by: [email or web address], User Resident: CHRISTELLE ABDI Electronically Signed by: YVETTE DESAI @ 12/26/2021 04:27 PM I personally read this/these film(s) with this resident Normal [facility] Comment on above: Order Comment: , , = ========= , Ordering Provider - JORDEN BRODY MANAGER GREEN , KNEE LEFT 3 [facility] 12-09-2021 KNEE LEFT 3 [facility] Department of Radiology [address] [place] [phone] Patient Name: ELVI MOORE : 1980 Sex: F Age: Race: White Pt. Location: Patient Status: D Ordered Date: 12/09/2021 9:30:00 AM Completed Date: 12/09/2021 09:37 AM Requesting Provider: JORDEN BRODY Attending Provider: JORDEN BRODY Report Copy To: Signs & Symptoms: Z47.1 Aftercare following joint replacement surgery I10 History: Tiffany Comments: Exam: KNEE LEFT 3 [facility] KNEE LEFT 3 VWS HISTORY: Knee replacement, follow-up. COMPARISON: 10/30/2021. IMPRESSION: 1. Redemonstrated knee arthroplasty, no hardware complication or acute abnormality. Small to moderate joint effusion. 2. Improving soft tissue changes. Electronically signed: Ezio Roberts. Transcribed by: [email or web address], User Resident: Electronically Signed by: EZIO ROBERTS @ 12/10/2021 08:39 AM Normal [facility] Operative Reporton 2 Operative Report MR#: [id number] S [facility] Pt. Name: Elvi Moore Room #: 0C Discharge Date: Birthdate: 1980 OPERATIVE REPORT DATE OF SURGERY: 10/30/2021 SURGEON: Kevin Lane M.D. PRINCIPAL WEB DEVELOPER: 1. MD Waleska. 2. LAVON Quinones. ANESTHESIA: [...] arthrotomy was closed itself with #2 interrupted [id number] suture. The remainder of the incision was closed in a layered fashion. Sterile dressing was applied. At the conclusion of the case, all sponge and needle counts were correct. I was present for the critical portions of this case. Electronically Signed by: Kevin Lane M.D. 10/30/2021 07:[address] M.D. Date Dict: 10/30/2021/11:00 Christine/Kevin Lane M.D. Date Trans: 10/30/2021 12:34 P/mmo [id number] cc: Arleth Acharya M.D. [id number] [facility] [place] [phone] Nasir Rony Thacker, DO [address] [facility] [address] [facility] [address] Normal [facility] POC GLUCOSE LABon 10-30-2021 Glucose [Mass/Vol] 88 mg/dL Normal 70-100 [facility] Comment on above: Performed By: #### 8 5499 ####[facility] [address] PORTABLE KNEE LEFT 2 VWSon 0 10-30-2021 PORTABLE KNEE LEFT 2 VWS [facility] Department of Radiology [address] [place] [phone] Patient Name: ELVI MOORE : 1980 [...] complication Electronically signed: Yvette Andrade. Transcribed by: [email or web address], User Resident: Electronically Signed by: YVETTE ANDRADE @ 10/30/2021 11:20 AM Normal [facility] Comment on above: Order Comment: Hardw are Evaluation, Postop PACU films for L knee s/p TKA. AP and lateral please *MRSA/MSSA DNA NASALon 10-07 *MRSA/MSSA DNA NASAL Clinical Report: (D) Specimen: NASAL SWAB Collected: 10/07/2021 10:51 Status: Final Last Updated: 10/07/2021 15:44 MSSA DNA (Final) Negative MRSA DNA (Final) Negative Normal [facility] Comment on above: Performed By: #### 3 1595 ####[facility] [place] [address], [facility] APTTon 10-07-2021 aPTT Coag (Bld) [Time] 32.2 s Normal 25.0-35.0 [facility] Comment on above: Result Comment: ALL [...] PURPOSE. Performed By: #### 3 1791 #### [facility] [address] [place] [address], [facility] BASIC METABOLIC PANELon 12-2 Calcium [Mass/Vol] 9.2 mg/dL Normal 8.6-10.3 [facility] Comment on above: Performed By: #### 3 1791 #### [facility] [address] [place] [address], [place] Chloride [Moles/Vol] 106 mmol/L Normal 98-107 [facility] Comment on above: Performed By: #### 3 1791 #### [facility] [address] [place] [address], [place] CO2 [Moles/Vol] 28 mmol/L Normal 21-31 [facility] Comment on above: Performed By: #### 3 1 #### [facility] [address] [place] [address], [place] Creatinine [Mass/Vol] 0.77 mg/dL Normal 0.60-1.20 [facility] Comment on above: Performed By: #### 3 1 #### [facility] [address] [place] [address], [place] GFR/1.73 sq M.predicted among blacks MDRD (S/P/Bld) [Vol rate/Area] mL/min/{1.73_m2} Normal >60 [facility] Comment on above: Performed By: #### 3 1 #### [facility] [address] [place] [address], [place] GFR/1.73 sq M.predicted among non-blacks MDRD (S/P/Bld) [Vol rate/Area] mL/min/{1.73_m2} Normal >60 [facility] Comment on above: Performed By: #### 3 1791 #### [facility] [address] [place] [address], [place] Glucose [Mass/Vol] 84 mg/dL Normal 70-100 [facility] Comment on above: Performed By: #### 3 179 #### [facility] [address] [facility] [place] [address], [facility] Potassium [Moles/Vol] 4.4 mmol/L Normal 3.5-5.1 [facility] Comment on above: Performed By: #### 3 1791 #### [facility] [address] [facility] [place] [address], [facility] Sodium [Moles/Vol] 142 mmol/L Normal 136-145 [facility] Comment on above: Performed By: #### 3 1791 #### [facility] [address] [place] [address], [facility] Urea nitrogen [Mass/Vol] 12 mg/dL Normal 7-25 [facility] Comment on above: Performed By: #### 3 179 #### [facility] [address] [place] [address], [facility] CBC W/DIFFon 10-07-2021 ABS IMM GRANS 0.0 10*3/uL Normal 0.0-0.2 [facility] Comment on above: Performed By: #### 6 1405 #### [facility] [address] [facility] [place] [address], [facility] ABS NEUTROPHILS 4.7 10*3/uL Normal 1.6-7.6 [facility] Comment on above: Performed By: #### 6 1405 #### [facility] [address] [facility] [place] [place] [address], [facility] Basophils (Bld) [#/Vol] 0.0 10*3/uL Normal 0.0-0.2 [facility] Comment on above: Performed By: #### 6 1405 #### [facility] [address] [place] [address], [facility] Basophils/100 WBC (Bld) 0.3 % Normal 0.0-1.0 [facility] Comment on above: Performed By: #### 6 1405 #### [facility] [address] Eosinophils (Bld) [#/Vol] 0.2 10*3/uL Normal 0.0-0.5 [facility] Comment on above: Performed By: #### 6 1405 #### [facility] [address] [place] [address], [facility] Eosinophils/100 WBC (Bld) 1.9 % Normal 0.0-6.0 [facility] Comment on above: Performed By: #### 6 1405 #### [facility] [address] Erythrocyte distribution width (RBC) [Ratio] 14.0 % Normal 11.5-15.0 [facility] Comment on above: Performed By: #### 6 1405 #### [facility] [address] Hematocrit (Bld) [Volume fraction] 37.1 % Normal 36.0-45.0 [facility] Comment on above: Performed By: #### 6 1405 #### [facility] [address] Hemoglobin (Bld) [Mass/Vol] 11.3 g/dL Low 12.0-15.0 [facility] Comment on above: Performed By: #### 6 1405 #### [facility] [address] [place] [address], [facility] IMMATURE GRANS 0.1 % Normal 0.0-1.0 [facility] Comment on above: Performed By: #### 6 1405 #### [facility] [address] [place] [address], [facility] Lymphocytes (Bld) [#/Vol] 2.5 10*3/uL Normal 1.2-4.0 [facility] Comment on above: Performed By: #### 6 1405 #### [facility] [address] [place] [address], [facility] Lymphocytes/100 WBC (Bld) 31.6 % Normal 20.0-45.0 [facility] Comment on above: Performed By: #### 6 1405 #### [facility] [address] [facility] [place] [address], [facility] MCH (RBC) [Entitic mass] 25.5 pg Low 27.0-33.0 [facility] Comment on above: Performed By: #### 6 1405 #### [facility] [address] [facility] [place] [address], [facility] MCHC (RBC) [Mass/Vol] 30.5 g/dL Low 32.0-35.0 [facility] Comment on above: Performed By: #### 6 1405 #### [facility] [address] [place] [address], [facility] MCV (RBC) [Entitic vol] 83.7 fL Normal 82.0-98.0 [facility] Comment on above: Performed By: #### 6 1405 #### [facility] [address] [place] [address], [facility] Monocytes (Bld) [#/Vol] 0.5 10*3/uL Normal 0.1-1.0 [facility] Comment on above: Performed By: #### 6 1405 #### [facility] [address] [facility] [place] [address], [facility] MONOS 6.0 % Normal 5.0-12.0 [facility] Comment on above: Performed By: #### 6 1405 #### [facility] [address] [place] [address], [facility] Neutrophils/100 WBC (Bld) 60.1 % Normal 40.0-72.0 [facility] Comment on above: Performed By: #### 6 1405 #### [facility] [address] [facility] [place], [place] [address] Nucleated RBC/100 WBC (Bld) [Ratio] 0 % Normal 0-0 [facility] Comment on above: Performed By: #### 6 1405 #### [facility] [address] [place] [address], [facility] PLAT CNT 233 10*3/uL Normal 150-400 [facility] Comment on above: Performed By: #### 6 1405 #### [facility] [address] RBC (Bld) [#/Vol] 4.43 10*6/uL Normal 3.80-5.00 [facility] Comment on above: Performed By: #### 6 1405 #### [facility] [address] WBC (Bld) [#/Vol] 7.85 10*3/uL Normal 4.00-10.60 [facility] Comment on above: Performed By: #### 6 1405 #### [facility] [address] PROTHROMBIN TIMEon 1 INR Coag (PPP) [Relative time] 0.94 {INR} Normal 0.91-1.16 [facility] Comment on above: Result Comment: ACCC [...] 1995;108:[id number]. Performed By: #### 3 1791 #### [facility] [address] PT Coag (PPP) [Time] 12.6 s Normal 12.3-14.8 [facility] Comment on above: Result Comment: ALL RESULTS MUST BE INTERPRETED WITH RESPECT TO BLOOD DRAWING ARTIFACT OR DILUTION ERROR OF ANTICOAGULANT AT THE TIME OF SAMPLING. Performed By: #### 3 1791 #### [facility] [address] [facility] [address] TYPE AND SCREENon 10-07-2021 ABO INTERPRETATION O Normal [facility] Comment on above: Performed By: #### 3 1791 #### [facility] [address] RH INTERPRETATION Positive Normal [facility] Comment on above: Performed By: #### 3 1791 #### [facility] [address] [facility] *MRSA/MSSA DNA NASALon 08-12 *MRSA/MSSA DNA NASAL Clinical Report: (D) Specimen: NASAL SWAB Collected: 08/12/2021 10:14 Status: Final Last Updated: 08/12/2021 18:58 MSSA DNA (Final) Negative MRSA DNA (Final) Negative Normal [facility] Comment on above: Performed By: #### 6 1405 #### [facility] [address] [place] [address], [facility] CBC W/DIFFon 08-12-2021 ABS IMM GRANS 0.0 10*3/uL Normal 0.0-0.2 [facility] Comment on above: Performed By: #### 6 1405 #### [facility] [address] [address], [place] ABS NEUTROPHILS 3.7 10*3/uL Normal 1.6-7.6 [facility] Comment on above: Performed By: #### 6 1405 #### [facility] [address] [place] [address], [facility] Basophils (Bld) [#/Vol] 0.0 10*3/uL Normal 0.0-0.2 [facility] Comment on above: Performed By: #### 6 1405 #### [facility] [address] [place] [address], [facility] Basophils/100 WBC (Bld) 0.3 % Normal 0.0-1.0 [facility] Comment on above: Performed By: #### 6 1405 #### [facility] [address] [place] [address], [facility] Eosinophils (Bld) [#/Vol] 0.2 10*3/uL Normal 0.0-0.5 [facility] Comment on above: Performed By: #### 6 1405 #### [facility] [address] [place] [address], [facility] Eosinophils/100 WBC (Bld) 2.9 % Normal 0.0-6.0 [facility] Comment on above: Performed By: #### 6 1405 #### [facility] [address] [place] [address], [facility] Erythrocyte distribution width (RBC) [Ratio] 14.0 % Normal 11.5-15.0 [facility] Comment on above: Performed By: #### 6 1405 #### [facility] [address] [place] [address], [facility] Hematocrit (Bld) [Volume fraction] 37.0 % Normal 36.0-45.0 [facility] Comment on above: Performed By: #### 6 1405 #### [facility] [address] [place] [id number], [facility] Hemoglobin (Bld) [Mass/Vol] 11.6 g/dL Low 12.0-15.0 [facility] Comment on above: Performed By: #### 6 1405 #### [facility] [address] [facility] [place] [address], [facility] IMMATURE GRANS 0.3 % Normal 0.0-1.0 [facility] Comment on above: Performed By: #### 6 1405 #### [facility] [address] [facility] [place] [address], [facility] Lymphocytes (Bld) [#/Vol] 2.1 10*3/uL Normal 1.2-4.0 [facility] Comment on above: Performed By: #### 6 1405 #### [facility] [address] [place] [address], [facility] Lymphocytes/100 WBC (Bld) 32.5 % Normal 20.0-45.0 [facility] Comment on above: Performed By: #### 6 1405 #### [facility] [address] [place] [address], [facility] MCH (RBC) [Entitic mass] 26.8 pg Low 27.0-33.0 [facility] Comment on above: Performed By: #### 6 1405 #### [facility] [address] [facility] [place] [address], [facility] MCHC (RBC) [Mass/Vol] 31.4 g/dL Low 32.0-35.0 [facility] Comment on above: Performed By: #### 6 1405 #### [facility] [address] [place] [address], [facility] MCV (RBC) [Entitic vol] 85.5 fL Normal 82.0-98.0 [facility] Comment on above: Performed By: #### 6 1405 #### [facility] [address] [facility] [place] [address], [facility] Monocytes (Bld) [#/Vol] 0.5 10*3/uL Normal 0.1-1.0 [facility] Comment on above: Performed By: #### 6 1405 #### [facility] [address] [place] [address], [facility] MONOS 6.9 % Normal 5.0-12.0 [facility] Comment on above: Performed By: #### 6 1405 #### [facility] [address] [place] [address], [facility] Neutrophils/100 WBC (Bld) 57.1 % Normal 40.0-72.0 [facility] Comment on above: Performed By: #### 6 1405 #### [facility] [address] [place] [address], [facility] Nucleated RBC/100 WBC (Bld) [Ratio] 0 % Normal 0-0 [facility] Comment on above: Performed By: #### 6 1405 #### [facility] [address] [place] [address], [facility] PLAT CNT 223 10*3/uL Normal 150-400 [facility] Comment on above: Performed By: #### 6 1405 #### [facility] [address] [place] [address], [facility] RBC (Bld) [#/Vol] 4.33 10*6/uL Normal 3.80-5.00 [facility] Comment on above: Performed By: #### 6 1405 #### [facility] [address] [place] [address], [facility] WBC (Bld) [#/Vol] 6.55 10*3/uL Normal 4.00-10.60 [facility] Comment on above: Performed By: #### 6 1405 #### [facility] [address] HEMOGLOBIN A1Con 08-12-2021 Glucose [Moles/Vol] 103 mmol/L Normal [facility] Comment on above: Performed By: #### 3 1791 #### [facility] [address] [facility] [place], [place] [id number] [place] [address] HbA1c (Bld) [Mass fraction] 5.2 % Normal 4.0-6.0 [facility] Comment on above: Performed By: #### 3 1791 #### [facility] [address] [facility] [place], [place] [id number] [place] [address] KNEE LEFT 3 Son 08-12-2021 KNEE LEFT 3 [facility] Department of Radiology [address] [place] [id number] Patient Name: ELVI MOORE : 1980 Sex: F Age: Race: White Pt. Location: Patient Status: O Ordered Date: 08/12/2021 8:40:00 AM Completed Date: 08/12/2021 08:41 AM Requesting Provider: KEVIN LANE Attending Provider: KEVIN LANE Report Copy To: SELF, REFERRED Signs & Symptoms: M25.562 Pain in left knee I10 History: Comments: evaluate Exam: KNEE LEFT 3 [facility] KNEE LEFT 3 S 08/12/2021 8:42 AM [...] report. Electronically signed: Jah Juarez. Transcribed by: [email or web address], User Resident: JODY KEITH Electronically Signed by: JAH JUAREZ @ 08/12/2021 03:46 PM I personally read this/these film(s) with this resident Normal [facility] Comment on above: Order Comment: evalu [...] _Zhane Tamez MD 12/30/17 16:02 EDT Normal [facility] Otolaryngology Office/Clinic Noteon 11-18-2017 Otolaryngology [...] _Zhane Tamez MD 11/18/17 16:31 EST Normal [facility] Otolaryngology Office/Clinic Note Patient seen for dispense of bilateral swim plugs. Both plugs display good fit in the ears, and patient confirmed comfort of fit. Proper insertion/removal was practiced successfully. Plan: Return if issues arise regarding swim plugs. N/C, swim plugs paid at last appointment.Electronicall y signed by _Kyara RoqueRimah 11/18/17 16:04 EST Normal [facility] Otolaryngology Office/Clinic Noteon 10-28-2017 Otolaryngology [...] by _Kyara RoqueRima 10/28/17 16:31 EST Normal [facility] Otolaryngology Office/Clinic Note Chief Complaint [...] _Zhane Tamez MD 10/28/17 15:41 EST Normal [facility] Otolaryngology Office/Clinic Noteon 09-16-2017 Otolaryngology [...] _Zhane Tamez MD 09/16/17 16:06 EST Normal [facility] Otolaryngology Consultationo n 04-20-2017 Otolaryngology [...] _Zhane Tamez MD 04/20/17 16:51 EDT Normal [facility] Vital Signs Date Time Vital Sign Value Performing Clinician Facility 03-07-2024 16:03-0400 Blood Pressure Location ELIZABETH AKBARRY [facility] 03-07-2024 16:03-0400 Body temperature 97.88 [degF] ELIZABETH STEPH [facility] 03-07-2024 16:03-0400 Diastolic blood pressure 80 mm[Hg] ELIZABETH STEPH [facility] 03-07-2024 16:03-0400 Heart rate 87 /min ELIZABETH STEPH [facility] 03-07-2024 16:03-0400 Respiratory rate 16 /min ELIZABETH STEPH [facility] 03-07-2024 16:03-0400 Systolic blood pressure 124 mm[Hg] ELIZABETH STEPH [facility] 01-06-2024 18:12-0400 Body height 167.64 cm MD Arleth Acharya Work Phone: [facility] 01-06-2024 18:12-0400 Body mass index (BMI) [Ratio] 25.6 kg/m2 MD Arleth Acharya Work Phone: [facility] 01-06-2024 18:12-0400 Body temperature 98.2 [degF] MD Arleth Acharya Work Phone: [facility] 01-06-2024 18:12-0400 Body weight 72 kg MD Arleth Acharya Work Phone: [facility] 01-06-2024 18:12-0400 Heart rate 93 /min MD Arleth Acharya Work Phone: [facility] 01-06-2024 18:12-0400 Respiratory rate 16 /min MD Arleth Acharya Work Phone: [facility] 01-06-2024 18:12-0400 SaO2% (BldA) [Mass fraction] 99 % MD Arleth Acharya Work Phone: [facility] 09-13-2023 12:04-0500 Blood Pressure Location Dianaatul HAWKINS [facility] 09-13-2023 12:04-0500 Diastolic blood pressure 74 mm[Hg] Diana HAWKINS [facility] 09-13-2023 12:04-0500 Heart rate 64 /min Diana HAWKINS [facility] 09-13-2023 12:04-0500 Respiratory rate 16 /min Diana HAWKINS [facility] 09-13-2023 12:04-0500 Systolic blood pressure 128 mm[Hg] Diana HAWKINS [facility] 05-28-2023 11:12-0400 Body temperature 98 [degF] MD Arleth Acharya Work Phone: [facility] 05-28-2023 11:12-0400 Body weight 70.76 kg MD Arleth Acharya Work Phone: [facility] 05-28-2023 11:12-0400 Diastolic blood pressure 94 mm[Hg] MD Arleth Acharya Work Phone: [facility] 05-28-2023 11:12-0400 Heart rate 88 /min MD Arleth Acharya Work Phone: [facility] 05-28-2023 11:12-0400 Respiratory rate 16 /min MD Arleth Acharya Work Phone: [facility] 05-28-2023 11:12-0400 SaO2% (BldA) [Mass fraction] 98 % MD Arleth Acharya Work Phone: [facility] 05-28-2023 11:12-0400 Systolic blood pressure 131 mm[Hg] MD Arleth Acharya Work Phone: [facility] 05-28-2023 11:00-0400 Body height 167.64 cm MD Arleth Acharya Work Phone: [facility] 06-29-2022 09:25-0400 Blood Pressure Location Diana HAWKINS [facility] 06-29-2022 09:25-0400 Diastolic blood pressure 84 mm[Hg] Dianaatul HAWKINS [facility] 06-29-2022 09:25-0400 Heart rate 84 /min Diana HAWKINS [facility] 06-29-2022 09:25-0400 Respiratory rate 16 /min Dianaatul HAWKINS [facility] 06-29-2022 09:25-0400 Systolic blood pressure 115 mm[Hg] Dianaatul HAWKINS [facility] Encounters Encounter Date Encounter Type Care Provider Facility Start: 06-01-2024 End: 06-01-2024 ambulatory KHRIS King [facility] Start: 05-01-2024 End: 05-03-2024 ambulatory DAISY [facility] Start: 03-22-2024 End: 03-22-2024 Departed Referred MD Arleth Acharya Work Phone: [facility] Start: 03-22-2024 End: 03-22-2024 ambulatory MD Arleth Acharya Work Phone: [facility] Work Phone: Start: 03-17-2024 ambulatory RUKHSANA ANGELA [facility] Start: 03-07-2024 End: 03-08-2024 ambulatory ELIZABETH VACA Facility:[facility] Start: 03-07-2024 End: 03-07-2024 Patient encounter procedure ELIZABETH AKBARRY [facility] Start: 03-07-2024 End: 03-07-2024 Emergency department patient visit [facility] Start: 03-06-2024 End: 03-07-2024 Emergency department patient visit ARLETH Phillips [facility] Start: 02-15-2024 End: 02-16-2024 ambulatory ARLETH Phillips [facility] Start: 02-08-2024 End: 02-09-2024 ambulatory DIANA HAWKINS [facility] Start: 02-07-2024 ambulatory Diana Mcclure ty:[facility] Start: 01-06-2024 End: 01-06-2024 ambulatory MD Arleth Acharya Work Phone: [facility] Work Phone: Start: 01-06-2024 End: 01-06-2024 Patient encounter procedure MD Arleth Acharya Work Phone: [facility] Work Phone: Start: 12-24-2023 ambulatory RUKHSANA MILLER [facility] Start: 12-10-2023 End: 12-11-2023 Emergency department patient visit NETO CONNELL [facility] Start: 11-19-2023 End: 11-20-2023 ambulatory [facility] Start: 11-08-2023 End: 11-09-2023 ambulatory [facility] Start: 10-28-2023 ambulatory RUKHSANA MILLER [facility] Start: 10-19-2023 ambulatory Diana Bairdi ty:SHAR[facility] Becerra Start: 10-14-2023 End: 10-14-2023 Emergency department patient visit ARLETH ACHARYA [facility] Start: 10-14-2023 End: 10-15-2023 Emergency department patient visit CARISSA RG [facility] Start: 10-13-2023 End: 10-15-2023 Emergency department patient visit CARISSA RG [facility] Start: 10-12-2023 End: 10-13-2023 ambulatory Diana HAWKINS Facility:[facility] Start: 10-12-2023 End: 10-12-2023 Patient encounter procedure Diana R ROSS [facility] Start: 09-20-2023 ambulatory Diana HAWKINS Facility :[facility] Start: 09-16-2023 ambulatory Diana HAWKINS Facili ty:[id number] Start: 09-13-2023 End: 09-14-2023 ambulatory Diana HAWKINS Facility:[facility] Start: 09-13-2023 End: 09-13-2023 Patient encounter procedure Diana R ROSS [facility] Start: 08-19-2023 ambulatory [facility] Start: 07-20-2023 End: 07-20-2023 ambulatory [facility] Start: 07-20-2023 End: 07-20-2023 ambulatory [facility] Start: 06-28-2023 ambulatory Jany Stephane Facility:[facility] Start: 05-28-2023 End: 05-28-2023 ambulatory MD Arleth Acharya Work Phone: [facility] Work Phone: Start: 05-28-2023 End: 05-28-2023 Registered Recurring MD Arleth Acharya Work Phone: [facility] Work Phone: Start: 01-25-2023 End: 01-25-2023 ambulatory GENNA HEATON Facility:[facility] Start: 01-21-2023 End: 01-22-[address] ARLETH ACHARYA . Facility:[facility] Start: 01-04-2023 End: 01-04-2023 Patient encounter procedure Diana HAWKINS [facility] Start: 10-10-[address] ARLETH ACHARYA . Facili ty:[facility] Start: 10-06-2022 End: 10-06-[address] ARLETH ACHARYA . Facility:[facility] Start: 09-30-2022 End: 10-01-[address] ARLETH ACHARYA . Facility:[facility] Start: 09-21-2022 End: 09-21-[address] ARLETH ACHARYA . Facility:[facility] Start: 08-27-2022 Encounter for preprocedural laboratory examination DR DIANA HAWKINS . [facility] Start: 08-27-2022 End: 08-27-[address] DIANA HAWKINS . Facility:[facility] Start: 08-24-2022 End: 08-25-[address] DIANA HAWKINS . Facility:[facility] Start: 08-24-2022 End: 08-25-2022 Encounter for preprocedural laboratory examination DR DIANA HAWKINS . Facility:[facility] Start: 08-21-2022 End: 08-21-[address] DIANA HAWKINS . Facility:[facility] Start: 08-19-2022 End: 08-20-[address] DIANA HAWKINS . Facility:[facility] Start: 07-23-2022 End: 07-23-[address] DIANA HWAKINS . Facility:[facility] Start: 07-20-2022 End: 07-21-[address] DIANA HAWKINS . Facility:[facility] Start: 07-10-2022 End: 07-11-[address] DIANA HAWKINS . Facility:[facility] Start: 06-29-2022 End: 06-29-2022 Patient encounter procedure Diana HAWKINS [facility] Start: 06-11-[address] Facility :[facility] Start: 06-09-2022 End: 06-11-2022 ambulatory Kevin Rameyhling Facility:[facility] Start: 06-03-2022 End: 06-03-2022 Emergency department patient visit ARLETH ACHARYA Facility:[facility] Start: 06-01-2022 End: 06-01-2022 Evaluation and management of inpatient Kevin Lane Facility:[facility] Start: 05-26-2022 End: 05-27-2022 ambulatory Kevin Nassaring Facility:[facility] Start: 05-26-2022 End: 05-27-2022 Encounter for preprocedural laboratory examination Kevin Lane Facility:[facility] Start: 05-16-2022 ambulatory NICK YOO Facility: Start: 05-01-2022 End: 05-02-2022 ambulatory NICK YOO Facility: Start: 04-29-2022 End: 04-29-2022 ambulatory ENEDINA IVEY . Facility: Start: 04-16-2022 End: 04-17-[address] ARLETH ACHARYA . Facility: Start: 04-07-2022 End: 04-08-2022 ambulatory Kevin Geocing Facility:[facility] Start: 03-24-2022 End: 03-25-2022 ambulatory REFERRED SELF Facility:[facility] Start: 02-12-2022 End: 02-13-2022 ambulatory Kevin Geocing Facility:[facility] Start: 01-09-2022 End: 01-10-2022 ambulatory REFERRED SELF Facility:[facility] Start: 12-26-2021 End: 12-27-2021 ambulatory REFERRED SELF Facility:[facility] Start: 12-09-2021 End: 12-10-2021 ambulatory REFERRED SELF Facility:[facility] Start: 10-30-2021 End: 10-31-2021 ambulatory Kevin Rameyhling Facility:[facility] Start: 10-11-2021 End: 11-11-2021 ambulatory Kevin Rameyhling Facility:[facility] Start: 10-07-2021 End: 10-08-2021 ambulatory Kevin Rameyhling Facility:[facility] Start: 10-06-2021 End: 10-11-2021 ambulatory Kevin Nassaring Facility:[facility] Start: 08-12-2021 End: 08-13-2021 ambulatory REFERRED SELF Facility:[facility] Start: 2017 End: 12-31-2017 Ambulatory ZHANE W TAMEZ Facility:[facility] Start: 11-18-2017 End: 11-19-2017 Ambulatory ZHANE W TAMEZ Facility:[facility] Start: 10-28-2017 End: 10-29-2017 Ambulatory Rima Sparrow Facility:[facility] Start: 10-14-2017 End: 10-15-2017 Ambulatory ZHANE W TAMEZ Facility:[facility] Start: 09-16-2017 End: 09-17-2017 Ambulatory ZHANE W TAMEZ Facility:[facility] Start: 06-24-2017 Ambulatory ZHANE W TAMEZ Facility :[facility] Start: 04-20-2017 End: 04-21-2017 Ambulatory ZHANE W TAMEZ Facility:[facility] Procedures Date Procedure Procedure Detail Performing Clinician Start: 01-06-2024 X-ray of left ankle MD Arleth Acharya Work Phone: Start: 10-12-2023 Cystoscopic removal of ureteric stent ELIZABETHLEA AKBARRY Start: 09-16-2023 Cystoscopic laser lithotripsy of ureteric calculus ELIZABETHLEA AKBARRY Start: 08-27-2022 Cystoscopic removal of ureteric stent Diana HAWKINS Start: 07-23-2022 Cystoscopic insertio n of ureteric stent Diana HAWKINS Start: 10-07-[address] Comment on above: Performed By: #### 3 1791 #### [address] Appendectomy Diana HAWKINS Arthroplasty of knee Diana HAWKINS Arthroscopy of knee Diana HAWKINS Bypass of stomach Diana GRIMES Cholecystectomy Diana ALVARADO Hysterectomy Diana HAWKINS Implantation of temp orary spinal cord stimulator Diana HAWKINS Tonsillectomy Diana HAWKINS Plan of Treatment Date Care Activity Detail Author Start: 05-28-2023 [facility] Iron binding capacit y [Mass/volume] in Serum or Plasma [facility] Iron saturation [Mas s Fraction] in Serum or Plasma [facility] Immunizations Immunization Date Immunization Notes Care Provider Fa [facility] 07-29-2022 influenza virus vacc ine, unspecified formulation ELIZABETH STEPH [facility] 07-29-2022 SARS-CoV-2 (COVID-19 ) [id number] ELIZABETH STEPH [facility] 10-08-2021 SARS-CoV-2 (COVID-19 ) mRNA BNT-162b2 vax Dianaatul HAWKINS [facility] 01-30-2021 SARS-CoV-2 (COVID-19 ) mRNA BNT-162b2 vax Dianaatul HAWKINS [facility] 01-09-2021 SARS-CoV-2 (COVID-19 ) mRNA BNT-162b2 vax Diana HAWKINS [facility] 07-11-2020 influenza virus vacc ine, unspecified formulation Diana HAWKINS [facility] 07-03-2020 influenza virus vacc ine, unspecified formulation Diana HAWKINS [facility] 07-18-2019 influenza virus vacc ine, unspecified formulation Diana HAWKINS [facility] 07-08-2018 influenza virus vacc ine, unspecified formulation Diana HAWKINS [facility] 01-01-2016 pneumococcal polysaccharide vaccine, 23 valent Diana HAWKINS [facility] 09-17-2013 influenza virus vacc ine, unspecified formulation Dianaatul HAWKINS [facility] 07-10-2011 tetanus toxoid, redu demar diphtheria toxoid, and acellular pertussis vaccine, adsorbed Diana HAWKINS [facility] Payers Date Payer Category Payer Unknown [id number] Self-pay 2017 Unknown 2012 Unknown [id number] 2012 Unknown [id number] 1980 Unknown [id number] 2.16.8 40.1.560809.3.579.2.647 1980 Unknown [id number] 2.16.8 40.1.079204.3.579.2.647 1981 Unknown [id number] 2.16.8 40.1.540186.3.579.2.647 1981 Unknown [id number] 2.16.8 40.1.229953.3.579.2.647 1981 Unknown [id number] 2.16.8 40.1.668493.3.579.2.647 1981 Unknown [id number] 2.16.8 40.1.034492.3.579.2.647 1981 Unknown [id number] 2.16.8 40.1.088095.3.579.2.647 1981 Unknown [id number] 2.16.8 40.1.574674.3.579.2.647 1981 Unknown [id number] 2.16.8 40.1.574494.3.579.2.647 1981 Unknown [id number] 2.16.8 40.1.999593.3.579.2.647 1981 Unknown [id number] 2.16.8 40.1.424910.3.579.2.647 1981 Unknown [id number] 2.16.8 40.1.242469.3.579.2.647 1981 Unknown [id number] 2.16.8 40.1.583940.3.579.2.647 1981 Unknown [id number] 2.16.8 40.1.171004.3.579.2.647 1981 Unknown [id number] 2.16.8 40.1.299767.3.579.2.647 1981 Unknown [id number] 2.16.8 40.1.204864.3.579.2.647 1981 Unknown [id number] 2.16.84 0.1.479703.3.579.2.593 1981 Unknown [id number] 2.16.84 0.1.706324.3.579.2.593 1981 Unknown [id number] 2.16.84 0.1.946002.3.579.2.593 1981 Unknown [id number] 2.16.84 0.1.239226.3.579.2.593 1981 Unknown [id number] 2.16.84 0.1.257607.3.579.2.593 1981 Unknown [id number] 2.16.84 0.1.235957.3.579.2.593 1981 Unknown [id number] 2.16.84 0.1.696318.3.579.2.593 1981 Unknown [id number] 2.16.84 0.1.794708.3.579.2.593 1981 Unknown [id number] 2.16.84 0.1.985744.3.579.2.593 1981 Unknown [id number] 2.16.84 0.1.161032.3.579.2.593 1981 Unknown [id number] 2.16.84 0.1.514489.3.579.2.593 1981 Unknown [id number] 2.16.84 0.1.744870.3.579.2.593 1981 Unknown [id number] 2.16.84 0.1.677167.3.579.2.593 1981 Unknown [id number] 2.16.84 0.1.027687.3.579.2.593 1981 Unknown [id number] 2.16.84 0.1.024559.3.579.2.593 1981 Unknown [id number] 2.16.84 0.1.310275.3.579.2.593 1981 Unknown [id number] 2.16.84 0.1.115617.3.579.2.593 1981 Unknown [id number] 2.16.84 0.1.196515.3.579.2.593 1981 Unknown [id number] 2.16.8 40.1.749809.3.579.2.1286 1981 Unknown [id number] 2.16.8 40.1.684108.3.579.2.1286 1981 Unknown [id number] 2.16.8 40.1.564239.3.579.2.128 1981 Unknown [id number] 2.16.8 40.1.125484.3.579.2.128 1981 Unknown [id number] 2.16.8 40.1.423469.3.579.2.1286 1981 Unknown [id number] 2.16.8 40.1.748400.3.579.2.128 1981 Unknown [id number] 2.16.8 [id number] 1980 Unknown [id number] 2.16.8 40.1.093486.3.579.2.1286 1980 Unknown [id number] 2.16.8 40.1.874760.3.579.2.128 1981 Unknown [id number] 2.16.84 0.1.225800.3.579.2.1285 1981 Unknown [id number] 2.16.84 0.1.064124.3.579.2.128 1981 Unknown [id number] 2.16.84 0.1.246935.3.579.2.1285 1981 Unknown [id number] 2.16.84 0.1.621539.3.579.2.1285 1981 Unknown [id number] 2.16.8 40.1.216951.3.579.2.727 1981 Unknown [id number] 2.16.8 40.1.371300.3.579.2.727 1981 Unknown [id number] 2.16.8 40.1.028890.3.579.2.727 1981 Unknown [id number] 2.16.8 40.1.174423.3.579.2.727 1981 Unknown [id number] 2.16.8 40.1.680999.3.579.2.727 1981 Unknown [id number] 2.16.8 40.1.232476.3.579.2.173 1958 Self-pay [id number] Unknown [id number] 2.16.8 40.1.784486.3.579.2.531 Unknown [id number] 2.16.8 40.1.779501.3.579.2.531 Unknown [id number] 2.16.8 40.1.745638.3.579.2.531 Social History Date Type Detail Facility Start: 06-29-2022 End: 05-28-2023 Tobacco smoking status Ex-smoker (finding) [facility] Sex Assigned At Female [facility] Start: 1980 Sex Assigned At Female F [facility] Tobacco smoking status Never [facility] Functional Status Date Assessment Result Facility 03-07-2024 Functional Status N/A [facility] 10-12-2023 Functional Status N/A [facility] 09-13-2023 Functional Status N/A [facility] 06-29-2022 Functional Status N/A [facility] Clinical Notes 06-16-2022 to 06-01-2024 Note Date [...] scan Blood work Appointment with Dr Burkett [facility] 03-17-2024 [place] [address] Subjective Patient ID: Elvi Moore is a [...] retention loop lost. 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 Other chronic postprocedural pain HYDROcodone-acetaminophen ([place]) 5-325 mg tablet gabapentin (Neurontin) 300 mg capsule Discussed chronic pain, medication use, treatment goals. Medication risk and benefits discussed. The Spine Diagram and Test results were used to explain the condition. PLAN: 1. Continue [place] 5/325mg TID PRN for severe pain 8-10 [...] to compliance m (more content not included)... [facility] 03-07-2024 Note - From: Maggie Vargas To: EU - Administrative; Sent: 03/07/2024 16:37:39 EDT Show up: 09/10/2024 16:37:00 EST Subject: Ambulatory Reminder Due Date/Time: 02/27/2025 16:37:00 EDT Reminder/Recall Please schedule patient for 1 yr f/u with KUB with [facility]ERI when schedule is built that far out. Due late February 2025 [facility] 03-07-2024 Hospital Discharge instructions Patient Education [...] include: ?8 oz (237 mL) of milk, uqppine-kmrknuxlyucu-zghre milk, and calcium-fortifiedfruit juice. Calcium-fortified means that [...] potatoes, and Chadian chard. ?Peanuts. ?Potato chips, georgian fries, and baked potatoes with skin on. ?Nuts and nut products. ?Chocolate. If you regularly take a diuretic medicine, make sure to eat at least 1 or 2 servings of fruits or vegetables that are high in potassium each day. These include: ?Avocado. ?Banana. ?[place], prune, carrot, or tomato juice. ?Baked potato. [...] magnesium, fish oil, or vitamin B6. Take mdjn-inw-dlnoymg and prescription medicines only as told by [...] Casseroles. Pizza. Lasagna. Frozen meals. Potato chips. Icelandic fries. The items listed above may not [...] provider. Document Revised: 01/07/2023 Document Reviewed: 01/07/2023 [employer] Patient Education 2022 [employer]. Follow Up Care 01/26/2024 10:43:28 With:ELIZABETH VACA PA-C, URL Address: [address] [place] [address] [phone] When: Unknown [facility] [place] 12-24-2023 Note Pain Medicine Medical [address] [place] [address] Subjective Patient ID: Elvi Moore is a [...] Interventions: Medication (See MAR) Response to Interventions: [place] - effective, SCS effective 42 year old female here follow up for chronic left leg pain. Her pain is a 7/10 and is worse with standing and it is in her left knee. She states she has been working with [employer] to make adjustments to get more coverage [...] retention loop lost. 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 Other chronic postprocedural pain HYDROcodone-acetaminophen ([place]) 5-325 mg tablet gabapentin (Neurontin) 300 mg capsule Discussed chronic pain, medication use, treatment goals. Medication risk and benefits discussed. The Spine Diagram and Test results were used to explain the condition. PLAN: 1. Continue [place] 5/325mg TID PRN for severe pain 8-10 [...] to compliance monit (more content not included)... [facility] 10-28-2023 Note Pain Medicine Medical [address] [address] Subjective Patient ID: Elvi Moore is a [...] before when she was working on the [employer]. She states she has been working with [employer] to make adjustments to get more coverage [...] retention loop lost. 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 Other chronic postprocedural pain HYDROcodone-acetaminophen ([place]) 5-325 mg tablet Discussed chronic pain, medication use, treatment goals. Medication risk and benefits discussed. The Spine Diagram and Test results were used to explain the condition. PLAN: 1. Increase [place] 5/325mg TID PRN for severe pain 8-10 [...] another provider. Medication (more content not included)... [facility] 10-12-2023 Note [id number] [facility] 10-12-2023 Hospital Discharge instructions Patient Education [...] HAWKINS Address: [facility] [address] [place] [address]- Business (1) When:01/11/2024 10:36:33 Comments:With a stone metabolic workup [facility] 10-12-2023 Note Custom Cystoscopy with Stent Removal [...] you have a fever over 100 degrees. [facility] 09-13-2023 Note Chief Complaint Re Referral [...] Acharya prescribed Promethazine & Cipro 500mg BID [id number]. [facility] 09/08/23 CC: Lt Flank Pain [...] Acharya prescribed Promethazine and Cipro 500mg bid [id number]. Reports Dr. Acharya also started her on [...] ongoing for 1month (more content not included)... [facility] Comment on above: Result Comment: [...] including vitamins, herbs, eye drops, creams, and yltv-qza-bygbuha medicines. Any problems you or family members [...] provider tells you to take them. Taking ocoi-tec-gqwnrxr medicines, vitamins, herbs, and supplements. Tests You [...] Follow these instructions at home: Medicines Take sjuw-bfi-hihfssd and prescription medicines only as told by [...] provider. Document Revised: 06/10/2022 Document Reviewed: 05/09/2021 [employer] Patient Education 2022 [employer]. 09/13/2023 12:55:19 Hematuria, Adult Hematuria, Adult Hematuria [...] Follow these instructions at home: Medicines Take xctf-qhx-pcmwsqs and prescription medicines only as told by [...] or the blood stops without treatment. Take lapd-alz-fancadp and prescription medicines only as told by your health care provider. Drink enough fluid to keep your urine pale yellow. This information is not intended to replace advice given to you by your health care provider. Make sure you discuss any questions you have with your health care provider. Document Revised: 05/28/2021 Document Reviewed: 05/28/2021 [employer] Patient Education 2022 [employer]. Follow Up Care 08/20/2023 11:43:21 With:ROSS GENTILE, Diana Goss, URL Address: [facility] [address] [place] [address] [phone] When: Unknown Comments:sched cysto [facility] 09-13-2023 Note Urology Cystoscopy Cystoscopy is [...] including vitamins, herbs, eye drops, creams, and wlya-zmh-cmiohix medicines. ? Any problems you or family [...] tells you to take them. ? Taking yemw-cte-gzyshze medicines, vitamins, herbs, and supplements. Tests You [...] these instructions at home: Medicines ? Take qfpy-fqu-nwivmes and prescription medicines only as told by [...] the department th (more content not included)... [facility] 08-19-2023 Note Pain Medicine Medical [address] [address] Subjective Patient ID: Elvi Moore is a [...] retention loop lost. 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 Do not start before August 20, 2023. - HYDROcodone-acetaminophen ([place]) 5-325 mg tablet; Take 1 tablet by mouth if needed in the morning and at bedtime for severe pain (8-10 pain score). Do not start before September 19, 2023. Other chronic postprocedural pain - HYDROcodone-acetaminophen ([place]) 5-325 mg tablet; Take 1 tablet by mouth if needed in the morning and at bedtime for severe pain (8-10 pain score). Do not start before August 20, 2023. - HYDROcodone-acetaminophen ([place]) 5-325 mg tablet; Take 1 tablet by [...] to explain the condition. PLAN: 1. Refill [place] 5/325mg BID PRN. Okay to fill on fill date 2. Patient instructed to contact us should she receive or prior to filling any additional opioid medications. 3. MAPS/OARRS pulled and reviewed. 4. Lumbar xrays reviewed with patient and reassured of proper lead placement and no migration issues. Continue optimization of neurostimulation 5. RTC in 6-8 weeks with EMBOSSER APPRENTICE for med check All questions are [...] condition which requires (more content not included)... [facility] 07-20-2023 Note Pain Medicine Medical [address] [address] Subjective Patient ID: Elvi Moore is a [...] hold of the [employer] rep. Pain Medications: [place] 5-325 BID. Pain relief lasts around 6 [...] from the pro (more content not included)... [facility] 01-04-2023 Hospital Discharge instructions Patient Education [...] include: ?Spinach. ?Rhubarb. ?Beets. ?Potato chips and georgian fries. ?Nuts. If you regularly take a diuretic medicine, make sure to eat at least 1 2 fruits or vegetables high in potassium each day. These include: ?Avocado. ?Banana. ?[place], prune, carrot, or tomato juice. ?Baked potato. [...] Casseroles. Pizza. Lasagna. Frozen meals. Potato chips. Icelandic fries. Summary You can reduce your risk [...] 01/22/2012 Document Revised: 01/17/2020 Document Reviewed: 09/07/2017 [employer] Patient Education 2020 [employer]. Follow Up Care 10/29/2022 14:23:18 With:ROSS GENTILE, Diana Goss, URL Address: [facility] [address] [place] [address]- When: Unknown [facility] 06-29-2022 Evaluation + Plan note Diagnostic Tests [facility]ys[facility] Fish and Urine Cyto ([facility]) 06/29/22 [facility] 06-29-2022 Hospital Discharge instructions Patient Education 06/29/2022 [...] Follow these instructions at home: Medicines Take efvk-rqs-hmdrakg and prescription medicines only as told by [...] or the blood stops without treatment. Take rpny-kls-qrxrzvo and prescription medicines only as told by your health care provider. Drink enough fluid to keep your urine clear or pale yellow. This information is not intended to replace advice given to you by your health care provider. Make sure you discuss any questions you have with your health care provider. Document Released: 09/27/2006 Document Revised: 02/21/2020 Document Reviewed: 10/30/2017 [employer] Patient Education 2020 [employer]. Follow Up Care 05/06/2022 15:50:29 With:ROSS GENTILE, Diana Goss, URL Address: [facility] [address] [place] [address]- [phone] When: Unknown [facility] 06-16-2022 Note MR#: [id number] I [facility] Pt. Name: Elvi Moore Admitted: 06/01/2022 [...] Cavazos MD Date Trans: 06/16/2022 02:27 P/taylor [id number] cc: Arleth Acharya M.D. [address] [address] [facility] Evaluation + Plan note Future Appointments Appointment Date:01/11/2023 01:45:00 PM Scheduled Provider:Diana HAWKINS MD Location:[facility] Appointment Type:URO Office Visit [facility] Evaluation + Plan note Future Appointments Appointment Date:02/07/2024 10:15:00 AM Scheduled Provider:Diana HAWKINS MD Location:[facility] Appointment Type:URO Office Visit [facility] Evaluation note No assessment inform ation available [facility] Work Phone: Evaluation note Diagnosis Onset Date Left ankle sprain noneactive [facility] Work Phone: Hospital course Narrative No data available for this section [facility] progress note No data available for this section [facility] Summary Purpose Family History No Family [...] section and content) DATE CREATED AUTHOR 03/31/2018 [facility] DATE CREATED AUTHOR AUTHOR'S ORGANIZ ATION 06/23/2022 [facility] DATE CREATED AUTHOR AUTHOR'S ORGANIZ ATION 01/28/2023 [facility] DATE CREATED AUTHOR AUTHOR'S ORGANIZ ATION 03/09/2024 [facility] DATE CREATED AUTHOR AUTHOR'S ORGANIZ ATION 03/09/2024 [facility] DATE CREATED AUTHOR AUTHOR'S ORGANIZ ATION 03/31/2024 [facility] DATE CREATED AUTHOR AUTHOR'S ORGANIZ ATION 05/04/2024 [facility] DATE CREATED AUTHOR AUTHOR'S ORGANIZ ATION 07/06/2024 [facility] Care Team (unrecognized sect ion and [...] Acharya MD Primary Care Provider, Referring Pr catarinaer Active Osiris Calderón APRN Attending Provider Kiana argueta Team Status: Inactive Member Role Status [...] BE BASED ON THE PRIMARY CLINICAL RECORDS. [facility]. provides no warranty or guarantee of the accuracy or completeness of information in this document.
--- NOTE | 2024-07-06 14:12 | P.HP_ITS ---
HPI H&P: HPI History of Present Illness Chief complaint: DIARRHEA, NAUSEA, ABDOMINAL PAIN/CLINIC REFERRAL Narrative: Patient well-known to me from the office and hospitalizations. Patient was seen in the office 2 days prior with increasing abdominal pain. Started on medications. Patient pain nausea vomiting became worse, gave her options and she would prefer to be evaluated in the emergency room. Upon presentation to emergency room lab work was done which did not show anything significant but the CT scan is consistent with acute flareup of her colitis. Patient admitted for workup and treatment of same Opioid HPI Opioid Management Most Recent Pain and Opioid Data: Last Pain Scale 6 07/06/24 17:39 Last Pain Assessment 07/06/24 17:39 Last MAR Pain Assessment 07/06/24 17:12 Last ORT Total Score 1 07/06/24 13:40 Last ORT Risk Category Low Risk 07/06/24 13:40 Review of Systems ROS Status of ROS 10 or more systems reviewed and unremark able except as noted in history and below [facility] Medical History (Updated 07/06/24 @ 12:08 by Durga Aguiar MD) Nausea & vomiting ?R11.2 - Nausea with vomiting, unspecified (ICD-10) Right flank pain ?R10.9 - Unspecified abdominal pain (ICD-10) Nausea & vomiting ?R11.2 - Nausea with vomiting, unspecified (ICD-10) Mass of right parotid gland ?K11.8 - Other diseases of salivary glands (ICD-10) Migraines ?G43.909 - Migraine, unspecified, not intractable, without status migrainosus (ICD-10) Anxiety ?F41.9 - Anxiety disorder, unspecified (ICD-10) Depression ?F32.A - Depression, unspecified (ICD-10) Stomach ulcer ?K25.9 - Gastric ulcer, unspecified as acute or chronic, without hemorrhage or perforation (ICD-10) Pancreatitis ?K85.90 - Acute pancreatitis without necrosis or infection, unspecified (ICD- 10) Kidney stone ?N20.0 - Calculus of kidney (ICD-10) Surgical History (Updated 03/22/24 @ 10:21 by Gin Machado) History of fine needle aspiration with imaging guidance ?Z98.890 - Other specified postprocedural states (ICD-10) Hx laparoscopic cholecystectomy ?Z90.49 - Acquired absence of other specified parts of digestive tract (ICD- 10) History of lumpectomy of right breast ?Z98.890 - Other specified postprocedural states (ICD-10) History of placement of ear tubes ?Z96.22 - Myringotomy tube(s) status (ICD-10) S/P insertion of spinal cord stimulator ?Z96.89 - Presence of other specified functional implants (ICD-10) History of knee replacement procedure of left knee ?Z96.652 - Presence of left artificial knee joint (ICD-10) Gastric bypass status for obesity ?Z98.84 - Bariatric surgery status (ICD-10) H/O: hysterectomy ?Z90.710 - Acquired absence of both cervix and uterus (ICD-10) Hx of appendectomy ?Z90.49 - Acquired absence of other specified parts of digestive tract (ICD- 10) Family History (Updated 08/11/23 @ 10:31 by Josie Pantoja) Grandfather Family history of COPD (chronic obstructive pulmonary disease) Father Family history of cancer Family history of diabetes mellitus Family history of hypertension Family history of stroke Sister Family history of cancer Family history of diabetes mellitus Grandmother Family history of diabetes mellitus Family history of hypertension Social History Within the past year, how often did you have a drink containing alcohol: never Within the past year, how many standard drinks containing alcohol did you have on a typical day: 1 or 2 Within the past year, how often did you have six or more drinks on one occasion: never Total score: 0 Score interpretation: A score less than 3 is consistent with normal alcohol consumption. Smoking status: Former smoker Second hand tobacco smoke exposure: No Non-prescribed substance use: denies use Previous occupational history: [employer] Known occupational exposures/hazards: No Highest level of school completed/degree received: some college, no degree Are you now , , , , never or living with a partner: In a typical week, how many times do you talk on the telephone with family, friends, or neighbors: 3 or more times per week How often do you get together with friends or relatives: 3 or more times per week How often do you attend religion or rastafarian services: 4 or more times per year Do you belong to any clubs or organizations such as religion groups unions, fraternal or athletic groups, or school groups: no Total score: 3 Score interpretation: A score of greater than or equal to 2 indicates the lowest level of social isolation. Little interest or pleasure in doing things: not at all Feeling down, depressed, or hopeless: not at all Feel stressed/tense/nervous/anxious/difficulty sleeping: not at all Do you think of yourself as: straight/heterosexual Gender Identity: female Meds Home Medications and Allergies Home Medications ?Medication ?Instructions ?Recorded ?Confirmed ?Type cyanocobalamin (vitamin B-12) 1,000 mcg IM .monthly 08/11/23 07/06/24 History 1,000 mcg/mL injection solution hydrocodone 5 mg-acetaminophen 325 1 tab PO Q8H PRN pain 08/11/23 07/06/24 History mg tablet tizanidine 4 mg tablet 8 mg PO BEDTIME 08/11/23 07/06/24 History pantoprazole 40 mg tablet,delayed 40 mg PO BID 09/13/23 07/06/24 History release calcium carbonate 1,200 mg PO DAILY 03/17/24 07/06/24 History ferrous sulfate 325 mg (65 mg 325 mg PO DAILY 03/17/24 07/06/24 History iron) tablet (FeroSul) gabapentin 300 mg capsule 300 mg PO Q12H 03/17/24 07/06/24 History multivitamin 1 tab PO DAILY 03/17/24 07/06/24 History amitriptyline 100 mg tablet 100 mg PO .QHS 03/22/24 07/06/24 History Allergies Allergy/AdvReac Type Severity Reaction Status Date / Time ketorolac [From Toradol] Allergy Intermediate Rash Verified 03/22/24 10:19 meperidine [From Demerol] Allergy Intermediate Rash Verified 03/22/24 10:19 prochlorperazine Allergy Intermediate hallucinati Verified 03/22/24 10:19 [From Compazine] ons Exam Constitutional Vital Signs, click to edit/add: Last Vital Signs Temp 98.3 F 07/06/24 13:46 Pulse 83 07/06/24 13:46 Resp 16 07/06/24 13:46 BP 139/98 H 07/06/24 13:46 Pulse Ox 96 07/06/24 13:46 O2 Del Method Room Air 07/06/24 13:46 Documenting provider has reviewed patient's vital signs: yes Common normals: no apparent distress Chest Common normals: inspection of chest normal Respiratory Common normals: normal respiratory effort Cardio Common normals: regular rate and regular rhythm GI Common normals: Normal to inspection, nondistended, normoactive bowel sounds present and soft to palpation; tender Palpation: tender Details: LLQ and LUQ Extremity Common normals: normal to inspection and full ROM Results Labs Labs: Short CBC 07/06/24 Range/Units 10:12 WBC 5.2 (4.0-11.0) 10^3/uL Hgb 12.4 (12.0-16.0) g/dL Hct 39.2 (36.0-48.0) % Plt Count 276 (150-450) 10^3/uL BMP 07/06/24 10:12 Sodium 138 Potassium 3.7 Chloride 102 Carbon Dioxide 29.9 BUN 15.0 Creatinine 0.74 Glucose 88 Calcium 9.2 Liver Function 07/06/24 Range/Units 10:12 Total Bilirubin 0.4 (0.2-1.0) mg/dL Direct Bilirubin 0.1 (0.0-0.2) mg/dL AST 11 L (15-37) U/L ALT 18 (14-59) U/L Alkaline Phosphatase 105 (46-116) U/L Albumin 4.0 (3.4-5.0) g/dL Urine 07/06/24 Range/Units 10:06 Urine Color Yellow (YELLOW) Urine Clarity Clear (CLEAR) Urine pH 6.0 (5.0-9.0) Ur Specific [place] 1.025 (1.005-1.025) Urine Protein Negative (NEG/TRACE) mg/dL Urine Glucose (UA) Negative (NEGATIVE) mg/dL Assessment and Plan Assessment and Plan (1) Colitis: (2) Flank pain: (3) Uncontrolled hypertension: Plan Admission findings: Increasing abdominal pain, nausea vomiting, unable to control pain in ER, CT scan consistent with acute colitis Colitis: IV antibiotics, Levsin rnkeps-yeg-buobl, oral pain medications for pain control. IV if pain becomes more severe. IV hydration also. Acute UTI-on antibiotics for the colitis as outlined above-culture pending. Uncontrolled hypertension in the past: Monitor closely GERD-continue with Protonix Low back pain continue with home medications including tizanidine and gabapentin Insomnia-continue with amitriptyline Admission status: Patient admitted with acute colitis, IV antibiotics today, medically necessary treatment likely to span only 1 midnight. Observation status.
[2024-07-06 14:42] LABS: Lactate/Lactic Acid 1.1 mmol/L (0.4-2.0)
[2024-07-06] MEDS: HYDROCODONE/ACET 5-325 MG TABLET 1 TAB PO ×2 (15:05→23:53)
[2024-07-06] MEDS: LACTATED RINGER'S SOLUTION 1,000 ML 100 ML IV ×2 (15:06→23:52)
--- NOTE | 2024-07-06 16:09 | SWNOTE1 ---
SW attempted to see pt, but nursing and others in room.
[2024-07-06] MEDS: HYDROMORPHONE HCL 0.5 MG/0.5 ML SYRINGE IV ×2 (16:15→23:53)
[2024-07-06] MEDS: HYOSCYAMINE SULFATE 0.125 MG TAB.SUBL 0.25 MG SL ×2 (17:38→21:04)
[2024-07-06] MEDS: TIZANIDINE HCL 4 MG TABLET 8 MG PO (21:04)
[2024-07-06] MEDS: GABAPENTIN 300 MG CAPSULE PO (21:04)
[2024-07-06] MEDS: AMITRIPTYLINE HCL 50 MG TABLET 100 MG PO (21:04)
[2024-07-06] MEDS: PROMETHAZINE HCL 25 MG TABLET PO (23:53)
[2024-07-07] VITALS (12 sets, daily range): BP systolic 99–123; BP diastolic 69–86; PULSE 65–86; TEMP 36.3–36.7; O2SAT 95–100
[2024-07-07] MEDS: ONDANSETRON PF 4 MG/2 ML VIAL IV ×2 (04:26→11:00)
[2024-07-07] MEDS: HYDROMORPHONE HCL 0.5 MG/0.5 ML SYRINGE IV ×4 (04:27→14:28)
[2024-07-07] MEDS: PROMETHAZINE HCL 25 MG TABLET PO (04:27)
[2024-07-07] MEDS: METRONIDAZOLE/SODIUM CHLORIDE 500 MG/100 ML PREMIX 100 MG IV ×2 (05:20→11:00)
[2024-07-07] MEDS: HYOSCYAMINE SULFATE 0.125 MG TAB.SUBL 0.25 MG SL ×2 (05:20→11:00)
[2024-07-07 05:43] LABS: Basophils Percent Auto 0.6 % (0.2-2.0); Eosinophils Absolute Auto 0.1 10^3/uL (0.0-0.7); Eosinophils Percent Auto 2.4 % (0.9-7.0); Hematocrit 30.3 % (36.0-48.0); Hemoglobin 9.6 g/dL (12.0-16.0); Immature Granulocytes Abs Auto 0.01 10^3/uL (0.00-0.03); Immature Granulocytes Pct Auto 0.3 % (0.0-0.5); Lymphocytes Absolute Auto 1.2 10^3/uL (1.2-3.8); Lymphocytes Percent Auto 35.7 % (20.5-60.0); Mean Corpuscular HGB Conc 31.7 g/dL (29.9-35.2); Mean Corpuscular Hemoglobin 28.1 pg (26.7-34.0); Mean Corpuscular Volume 88.6 fL (81.0-99.0); Mean Platelet Volume 9.1 fL (9.5-13.5); Monocytes Absolute Auto 0.3 10^3/uL (0.3-0.8); Monocytes Percent Auto 8.4 % (1.7-12.0); Neutrophils Absolute Auto 1.8 10^3/uL (1.4-6.5); Neutrophils Percent Auto 52.6 % (43.0-75.0); Platelet Count 181 10^3/uL (150-450); Red Blood Count 3.42 10^6/uL (4.20-5.40); Red Cell Distribution Width 13.3 % (11.0-15.0); White Blood Count 3.3 10^3/uL (4.0-11.0)
[2024-07-07 06:01] LABS: Alanine Aminotransferase 13 U/L (14-59); Albumin Level 2.9 g/dL (3.4-5.0); Alkaline Phosphatase 77 U/L (46-116); Anion Gap 8.5; Aspartate Amino Transferase 9 U/L (15-37); BUN Creatinine Ratio 16.4; Bilirubin Total 0.3 mg/dL (0.2-1.0); Calcium 8.3 mg/dL (8.5-10.1); Carbon Dioxide 29.1 mmol/L (21.0-32.0); Chloride 102 mmol/L (98-107); Estimated GFR (African America >60 (>=60); Estimated GFR (Non-African Ame >60 (>=60); Globulin 2.8 g/dL; Glucose 100 mg/dL (74-106); Potassium 3.6 mmol/L (3.5-5.1); Sodium 136 mmol/L (136-145); Total Protein 5.7 g/dL (6.4-8.2)
--- NOTE | 2024-07-07 07:53 | P.DS_ITS ---
DS: Providers Provider Date of admission: 07/06/24 13:33 Primary care physician: Yasir Ledesma MD Consults: 07/06/24 14:05 Consult to Pharmacy Routine Consulting Provider: Reason for consultation: Please [place] me when Med Rec is Updated Has provider been notified: No DS: Diagnosis Discharge Diagnosis (1) Colitis: (2) Flank pain: (3) Uncontrolled hypertension: Plan Admission findings: Increasing abdominal pain, nausea vomiting, unable to control pain in ER, CT scan consistent with acute colitis Colitis: Treated with IV antibiotics, improving at the time of discharge Neutropenia-monitor as an outpatient Iron deficiency anemia-monitor as an outpatient, Hemoccult pending Acute UTI-culture pending at the time of discharge Uncontrolled hypertension in the past: Improved at the time of discharge GERD-stable at the time of discharge Low back pain continue with home medications including tizanidine and gabapentin-stable at the time of discharge Insomnia-continue with amitriptyline Moderate protein calorie malnutrition-diet management Admission status: Patient admitted with acute colitis, IV antibiotics today, medically necessary treatment likely to span only 1 midnight. Observation status. ? DS: Summary Hospital Course Hospital Course: Patient had been seen by me in the outpatient setting for colitis. Treated with her usual course of antibiotics without significant improvement. Pain persisted. Presented to emergency room and CT scan consistent with acute colitis. Stool cultures are pending. Patient is able to eat somewhat last night. Will see how breakfast and lunch goes today. If improving later today, this is not likely to be resolved, possible discharge to home later today. See me in the office on Wednesday. Medications see list. Status at Discharge Overall status at discharge: patient is not back to baseline Time Spent with Patient Time attestation: Total time spent providing and/or coordinating discharge services: Time spent: greater than 30 minutes Exam Constitutional Vital Signs, click to edit/add: Last Vital Signs Temp 97.8 F 07/07/24 07:34 Pulse 71 07/07/24 07:34 Resp 16 07/07/24 07:34 BP 110/76 07/07/24 07:34 Pulse Ox 98 07/07/24 07:34 O2 Del Method Room Air 07/07/24 07:34 Documenting provider has reviewed patient's vital signs: yes Common normals: no apparent distress Chest Common normals: inspection of chest normal Respiratory Common normals: normal respiratory effort Cardio Common normals: regular rate and regular rhythm GI Common normals: Normal to inspection, nondistended, normoactive bowel sounds present and soft to palpation; tender Palpation: tender (Less tender than previous day but persisting) Details: LLQ and LUQ Extremity Common normals: normal to inspection and full ROM DS: Data Data Completed and Pending Labs on day of discharge: Labs from last 24 hours 07/07/24 07/06/24 07/06/24 05:30 10:12 10:06 WBC 3.3 L 5.2 RBC 3.42 L 4.41 Hgb 9.6 L 12.4 Hct 30.3 L 39.2 MCV 88.6 88.9 MCH 28.1 28.1 MCHC 31.7 31.6 RDW 13.3 13.5 Plt Count 181 276 MPV 9.1 L 9.3 L Neut % (Auto) 52.6 54.2 Lymph % (Auto) 35.7 37.7 [place] % (Auto) 8.4 6.0 Eos % (Auto) 2.4 1.5 Baso % (Auto) 0.6 0.4 Neut # (Auto) 1.8 2.8 Lymph # (Auto) 1.2 2.0 [place] # (Auto) 0.3 0.3 Eos # (Auto) 0.1 0.1 Baso # (Auto) 0.0 0.0 Abs Immat Gran (auto) 0.01 0.01 Imm/Tot Granulo (auto) 0.3 0.2 Sodium 136 138 Potassium 3.6 3.7 Chloride 102 102 Carbon Dioxide 29.1 29.9 Anion Gap 8.5 9.8 BUN 12.0 15.0 Creatinine 0.73 0.74 Est GFR ( Amer) >60 >60 Est GFR (Non-Af Amer) >60 >60 BUN/Creatinine Ratio 16.4 20.3 Glucose 100 88 Lactate 1.1 Calcium 8.3 L 9.2 Magnesium 2.0 Total Bilirubin 0.3 0.4 Direct Bilirubin 0.1 AST 9 L 11 L ALT 13 L 18 Alkaline Phosphatase 77 105 Total Protein 5.7 L 7.6 Albumin 2.9 L 4.0 Globulin 2.8 3.6 Albumin/Globulin Ratio 1.0 1.1 Amylase 58 Lipase 55.0 Urine Color Yellow Urine Clarity Clear Urine pH 6.0 Ur Specific [place] 1.025 Urine Protein Negative Urine Glucose (UA) Negative Urine Ketones Negative Urine Occult Blood Negative Urine Nitrite Negative Urine Bilirubin Negative Urine Urobilinogen 0.2 Ur Leukocyte Esterase Small A Urine RBC 0-2 Urine WBC 5-10 A Ur Squamous Epith Cells Moderate A Urine Crystals None seen Urine Bacteria Trace A Urine Casts None seen Urine Mucus Trace A Ur Culture Indicated? Yes Discharge Plan Discharge Disposition: Home, Self-Care Condition: Good Discharge Medications: New levofloxacin 750 mg tablet 750 mg PO DAILY 10 Days Qty: 10 0RF metronidazole 500 mg tablet 500 mg PO Q6H Qty: 40 0RF Continued cyanocobalamin (vitamin B-12) 1,000 mcg/mL solution 1,000 mcg IM .monthly tizanidine 4 mg tablet 8 mg PO BEDTIME hydrocodone-acetaminophen 5-325 mg tablet 1 tab PO Q8H PRN (Reason: pain) pantoprazole 40 mg tablet,delayed release (DR/EC) 40 mg PO BID amitriptyline 100 mg tablet 100 mg PO .QHS gabapentin 300 mg capsule 300 mg PO Q12H multivitamin Tablet 1 tab PO DAILY ferrous sulfate [FeroSul] 325 mg (65 mg iron) tablet 325 mg PO DAILY calcium carbonate 600 mg calcium (1,500 mg) tablet 1,200 mg PO DAILY Print Language: [place] Forms: Portal Instructions
[2024-07-07] MEDS: CALCIUM CARBONATE 600 MG TABLET 1200 MG PO (09:47)
[2024-07-07] MEDS: MULTIVITAMIN TABLET 1 TAB PO (09:48)
[2024-07-07] MEDS: FERROUS SULFATE 325 MG TABLET PO (09:48)
[2024-07-07] MEDS: GABAPENTIN 300 MG CAPSULE PO (09:48)
[2024-07-07] MEDS: CIPROFLOXACIN IN 5 % DEXTROSE 400 MG/200 ML PREMIX 200 MG IV (12:07)
[2024-07-07] MEDS: LACTATED RINGER'S SOLUTION 1,000 ML 100 ML IV (14:28)
[2024-07-07 17:27] LABS: Amphetamine Screen Urine NEGATIVE (NEGATIVE); Barbiturates Screen Urine NEGATIVE (NEGATIVE); Benzodiazepines Screen Urine NEGATIVE (NEGATIVE); Buprenorphine Screen Urine NEGATIVE (NEGATIVE); Cannabinoid Screen Urine NEGATIVE (NEGATIVE); Cocaine Screen Urine NEGATIVE (NEGATIVE); Methadone Screen Urine NEGATIVE (NEGATIVE); Methamphetamines Screen Urine NEGATIVE (NEGATIVE); Opiate Screen Urine NEGATIVE (NEGATIVE); Oxycodone Screen Urine NEGATIVE (NEGATIVE); Phencyclidine Screen Urine NEGATIVE (NEGATIVE); Tricyclic Antidepressant Urine POSITIVE (NEGATIVE)
--- NOTE | 2024-07-11 15:58 | CM.DCFOLLOWU ---
1st attempt 07/11/24, no answer
== END 2024-07-07 15:32 | disposition home or self-care (01) ==
LOC: ER 12:36 → MS 13:37
PROVIDERS: Admitting Provider Family Medicine; Emergency Provider Emergency Medicine; PCP Family Medicine; Visit Provider Family Medicine
DX: K52.9 Noninfective gastroenteritis and colitis, unspecified (principal); N39.0 Urinary tract infection, site not specified; K21.9 Gastro-esophageal reflux disease without esophagitis; M54.50 Low back pain, unspecified; G47.00 Insomnia, unspecified; D70.9 Neutropenia, unspecified; D50.9 Iron deficiency anemia, unspecified; I10 Essential (primary) hypertension; E44.0 Moderate protein-calorie malnutrition; Z68.26 Body mass index [BMI] 26.0-26.9, adult; R10.9 Unspecified abdominal pain; Z87.891 Personal history of nicotine dependence; Z79.899 Other long term (current) drug therapy
CPT/HCPCS: 36415; 74177; 80048; 80053; 80076; 80307; 81001; 82150; 83605; 83690; 83735; 85025; 87045; 87046; 87086; 87427; 87493; 94761; 96361; 96365; 96366; 96367; 96368; 96375; 96376; 99285; G0328; G0378; J0744; J1170; J1836; J2270; J2405; Q0169; Q9967

== ENCOUNTER 2024-08-10 16:58 | Emergency (ER) | payer OTHER, SELFPAY ==
[2024-08-10 17:09] VITALS: BP 126/99; PULSE 100; TEMP 37.1; O2SAT 99; BMI 25.8
--- NOTE | 2024-08-10 17:27 | ED.ABDPAIN1 ---
Documented by User: Sathya Leigh MD 08/10/24 17:29 HPI - Abdominal Pain General Chief Complaint: Abdominal Pain Stated Complaint: Abdominal Pain Time Seen by Provider: 08/10/24 17:21 Source: patient Mode of arrival: walk-in Limitations: no limitations History of Present Illness HPI narrative: Patient is here complaining of left flank and left abdominal pain. She says been bothering her terrible for the last 3 to 4 days. She was seen by her primary care practitioner yesterday with a clinical diagnosis of colitis. She says she does have a history of ulcerative colitis. She was placed on antibiotic therapy and told to go to the ER if she was not feeling any better. Complicating the issue she also has a history of kidney stones and pyelonephritis. Allergies are noted she decayed she is not better in fever. She says she has Vicodin at home and it is really not helping very much. She has not had any diarrhea. She not had blood in her urine or any blood in her stool that she noticed. Related Data Home Medications ?Medication ?Instructions ?Recorded ?Confirmed cyanocobalamin (vitamin B-12) 1,000 mcg IM .monthly 08/11/23 07/06/24 1,000 mcg/mL injection solution hydrocodone 5 mg-acetaminophen 325 1 tab PO Q8H PRN pain 08/11/23 07/06/24 mg tablet tizanidine 4 mg tablet 8 mg PO BEDTIME 08/11/23 07/06/24 pantoprazole 40 mg tablet,delayed 40 mg PO BID 09/13/23 07/06/24 release calcium carbonate 1,200 mg PO DAILY 03/17/24 07/06/24 ferrous sulfate 325 mg (65 mg 325 mg PO DAILY 03/17/24 07/06/24 iron) tablet (FeroSul) gabapentin 300 mg capsule 300 mg PO Q12H 03/17/24 07/06/24 multivitamin 1 tab PO DAILY 03/17/24 07/06/24 amitriptyline 100 mg tablet 100 mg PO .QHS 03/22/24 07/06/24 Previous Rx's ?Medication ?Instructions ?Recorded levofloxacin 750 mg tablet 750 mg PO DAILY 10 days #10 tabs 07/07/24 metronidazole 500 mg tablet 500 mg PO Q6H #40 tabs 07/07/24 Allergies Allergy/AdvReac Type Severity Reaction Status Date / Time ketorolac (From Toradol) Allergy Intermediate Rash Verified 08/10/24 17:13 meperidine (From Demerol) Allergy Intermediate Rash Verified 08/10/24 17:13 prochlorperazine (From Allergy Intermediate hallucinati Verified 08/10/24 17:13 Compazine) ons [facility] Medical History (Updated 08/10/24 @ 20:52 by Cyril Antonio MD) Colitis ?K52.9 - Noninfective gastroenteritis and colitis, unspecified (ICD-10) Flank pain ?R10.9 - Unspecified abdominal pain (ICD-10) Uncontrolled hypertension ?I10 - Essential (primary) hypertension (ICD-10) Nausea & vomiting ?R11.2 - Nausea with vomiting, unspecified (ICD-10) Right flank pain ?R10.9 - Unspecified abdominal pain (ICD-10) Nausea & vomiting ?R11.2 - Nausea with vomiting, unspecified (ICD-10) Mass of right parotid gland ?K11.8 - Other diseases of salivary glands (ICD-10) Migraines ?G43.909 - Migraine, unspecified, not intractable, without status migrainosus (ICD-10) Anxiety ?F41.9 - Anxiety disorder, unspecified (ICD-10) Depression ?F32.A - Depression, unspecified (ICD-10) Stomach ulcer ?K25.9 - Gastric ulcer, unspecified as acute or chronic, without hemorrhage or perforation (ICD-10) Pancreatitis ?K85.90 - Acute pancreatitis without necrosis or infection, unspecified (ICD-10) Kidney stone ?N20.0 - Calculus of kidney (ICD-10) Surgical History (Updated 03/22/24 @ 10:21 by Gin Machado) History of fine needle aspiration with imaging guidance ?Z98.890 - Other specified postprocedural states (ICD-10) Hx laparoscopic cholecystectomy ?Z90.49 - Acquired absence of other specified parts of digestive tract (ICD-10) History of lumpectomy of right breast ?Z98.890 - Other specified postprocedural states (ICD-10) History of placement of ear tubes ?Z96.22 - Myringotomy tube(s) status (ICD-10) S/P insertion of spinal cord stimulator ?Z96.89 - Presence of other specified functional implants (ICD-10) History of knee replacement procedure of left knee ?Z96.652 - Presence of left artificial knee joint (ICD-10) Gastric bypass status for obesity ?Z98.84 - Bariatric surgery status (ICD-10) H/O: hysterectomy ?Z90.710 - Acquired absence of both cervix and uterus (ICD-10) Hx of appendectomy ?Z90.49 - Acquired absence of other specified parts of digestive tract (ICD-10) Family History (Updated 08/11/23 @ 10:31 by Josie Pantoja) Grandfather Family history of COPD (chronic obstructive pulmonary disease) Father Family history of cancer Family history of diabetes mellitus Family history of hypertension Family history of stroke Sister Family history of cancer Family history of diabetes mellitus Grandmother Family history of diabetes mellitus Family history of hypertension Social History Within the past year, how often did you have a drink containing alcohol: never Within the past year, how many standard drinks containing alcohol did you have on a typical day: 1 or 2 Within the past year, how often did you have six or more drinks on one occasion: never Total score: 0 Score interpretation: A score less than 3 is consistent with normal alcohol consumption. Smoking status: Former smoker Second hand tobacco smoke exposure: No Non-prescribed substance use: denies use Previous occupational history: [employer] Known occupational exposures/hazards: No Highest level of school completed/degree received: some college, no degree Are you now , , , , never or living with a partner: In a typical week, how many times do you talk on the telephone with family, friends, or neighbors: 3 or more times per week How often do you get together with friends or relatives: 3 or more times per week How often do you attend restorationism or oriental orthodox services: 4 or more times per year Do you belong to any clubs or organizations such as restorationism groups unions, fraternal or athletic groups, or school groups: no Total score: 3 Score interpretation: A score of greater than or equal to 2 indicates the lowest level of social isolation. Little interest or pleasure in doing things: not at all Feeling down, depressed, or hopeless: not at all Feel stressed/tense/nervous/anxious/difficulty sleeping: not at all Do you think of yourself as: straight/heterosexual Gender Identity: female Exam Narrative Exam Narrative: Patient is awake alert appears to be uncomfortable crying. She says her dropped her off and then went back to work. Examination of back shows no gross kyphoscoliosis. There is no tenderness over the spine. She has some tenderness to percussion over the left costovertebral angle. There is no evidence of shingles. She has good breath sounds bilaterally. Abdominal examination shows no guarding rebound rigidity or peritoneal findings. She has good pulses to the extremities with no evidence of vascular insufficiency. Constitutional Vital Signs, click to edit/add: Last Vital Signs Temp 98.8 F 08/10/24 17:09 Pulse 100 H 08/10/24 17:09 Resp 20 08/10/24 17:09 BP 126/99 H 08/10/24 17:09 Pulse Ox 99 08/10/24 17:48 O2 Del Method Room Air 08/10/24 17:48 Course Vital Signs Vital signs: Vital Signs Temperature 98.8 F 08/10/24 17:09 Pulse Rate 100 H 08/10/24 17:09 Respiratory Rate 20 08/10/24 17:09 Blood Pressure 126/99 H 08/10/24 17:09 Pulse Oximetry 99 08/10/24 17:09 Temperature 98.8 F 08/10/24 17:09 Pulse Rate 100 H 08/10/24 17:09 Respiratory Rate 20 08/10/24 17:09 Blood Pressure 126/99 H 08/10/24 17:09 Pulse Oximetry 99 08/10/24 17:48 Oxygen Delivery Method Room Air 08/10/24 17:48 MDM - Abdominal Pain Lab Data Labs: Lab Results 08/10/24 08/10/24 Range/Units 17:18 17:28 WBC 5.2 (4.0-11.0) 10^3/uL RBC 4.47 (4.20-5.40) 10^6/uL Hgb 12.2 (12.0-16.0) g/dL Hct 38.5 (36.0-48.0) % MCV 86.1 (81.0-99.0) fL MCH 27.3 (26.7-34.0) pg MCHC 31.7 (29.9-35.2) g/dL RDW 13.1 (11.0-15.0) % Plt Count 275 (150-450) 10^3/uL MPV 9.5 (9.5-13.5) fL Neut % (Auto) 52.9 (43.0-75.0) % Lymph % (Auto) 39.2 (20.5-60.0) % [place] % (Auto) 6.0 (1.7-12.0) % Eos % (Auto) 1.3 (0.9-7.0) % Baso % (Auto) 0.4 (0.2-2.0) % Neut # (Auto) 2.8 (1.4-6.5) 10^3/uL Lymph # (Auto) 2.0 (1.2-3.8) 10^3/uL [place] # (Auto) 0.3 (0.3-0.8) 10^3/uL Eos # (Auto) 0.1 (0.0-0.7) 10^3/uL Baso # (Auto) 0.0 (0.0-0.1) 10^3/uL Abs Immat Gran (auto) 0.01 (0.00-0.03) 10^3/uL Imm/Tot Granulo (auto) 0.2 (0.0-0.5) % Sodium 144 (136-145) mmol/L Potassium 4.0 (3.5-5.1) mmol/L Chloride 105 (98-107) mmol/L Carbon Dioxide 28.1 (21.0-32.0) mmol/L Anion Gap 14.9 BUN 11.0 (7.0-18.0) mg/dL Creatinine 0.79 (0.55-1.02) mg/dL Est GFR ( Amer) >60 (>=60 mL/min/1.73m^2) Est GFR (Non-Af Amer) >60 (>=60 mL/min/1.73m^2) BUN/Creatinine Ratio 13.9 Glucose 94 (74-106) mg/dL Lactate 1.9 (0.4-2.0) mmol/L Calcium 8.9 (8.5-10.1) mg/dL Total Bilirubin 0.3 (0.2-1.0) mg/dL AST 17 (15-37) U/L ALT 18 (14-59) U/L Alkaline Phosphatase 120 H (46-116) U/L Total Protein 7.6 (6.4-8.2) g/dL Albumin 3.8 (3.4-5.0) g/dL Globulin 3.8 g/dL Albumin/Globulin Ratio 1.0 Lipase 68.0 (16.0-77.0) U/L Urine Color Yellow (YELLOW) Urine Clarity Clear (CLEAR) Urine pH 6.0 (5.0-9.0) Ur Specific [place] 1.025 (1.005-1.025) Urine Protein Negative (NEG/TRACE) mg/dL Urine Glucose (UA) Negative (NEGATIVE) mg/dL Urine Ketones Trace A (NEGATIVE) mg/dL Urine Occult Blood Large A (NEGATIVE) Urine Nitrite Negative (NEGATIVE) Urine Bilirubin Negative (NEGATIVE) Urine Urobilinogen 0.2 (0.2-1.0) EU/dL Ur Leukocyte Esterase Trace A (NEGATIVE) Urine RBC 50-75 A (0-2) #/HPF Urine WBC 0-2 A (NONE SEEN) #/HPF Ur Squamous Epith Cells Few A (NONE/RARE) #/LPF Urine Crystals None seen (None Seen) #/HPF Urine Bacteria Trace A (NONE SEEN) #/HPF Urine Casts None seen (NONE SEEN) #/LPF Urine Mucus None seen (NONE SEEN) Ur Culture Indicated? No Imaging Data Abdominal x-ray: Radiologist's impression: ITS Impressions Abdomen/Pelvis CT 08/10/24 17:30 Impression: 1. Small bowel intussusception is seen in left side of the abdomen with no evidence of bowel obstruction, most likely transient intussusception. Follow-up may be recommended if clinically warranted. 2. Mild increase in fecal matter in the colon which may suggest constipation. Please correlate clinically. 3. No renal or ureteral stones are seen. No hydronephrosis. No evidence of diverticulitis. Electronically authenticated by: ORLANDO PULIDO Date: 08/10/2024 20:04 Discharge Plan Discharge Chief Complaint: Abdominal Pain Clinical Impression: Abdominal pain, Constipation, Hematuria Patient Disposition: Home, Self-Care Prescriptions / Home Meds: No Action cyanocobalamin (vitamin B-12) 1,000 mcg/mL solution 1,000 mcg IM .monthly tizanidine 4 mg tablet 8 mg PO BEDTIME hydrocodone-acetaminophen 5-325 mg tablet 1 tab PO Q8H PRN (Reason: pain) pantoprazole 40 mg tablet,delayed release (DR/EC) 40 mg PO BID amitriptyline 100 mg tablet 100 mg PO .QHS gabapentin 300 mg capsule 300 mg PO Q12H multivitamin Tablet 1 tab PO DAILY ferrous sulfate [FeroSul] 325 mg (65 mg iron) tablet 325 mg PO DAILY calcium carbonate 600 mg calcium (1,500 mg) tablet 1,200 mg PO DAILY levofloxacin 750 mg tablet 750 mg PO DAILY 10 Days Qty: 10 0RF metronidazole 500 mg tablet 500 mg PO Q6H Qty: 40 0RF Print Language: German Instructions: Constipation (ED), Hematuria (ED), Abdominal Pain (ED) Additional Instructions: follow up with Dr Ledesma tomorrow or return to ER for recheck follow up with Urology Dr Zuniga for blood in the urine Referrals: Yasir Ledesma MD [Primary Care Provider] - 1 week Documented by User: Cyril Antonio MD 08/10/24 20:58 HPI - Abdominal Pain General Chief Complaint: Abdominal Pain Stated Complaint: Abdominal Pain Time Seen by Provider: 08/10/24 17:21 Related Data Home Medications ?Medication ?Instructions ?Recorded ?Confirmed cyanocobalamin (vitamin B-12) 1,000 mcg IM .monthly 08/11/23 07/06/24 1,000 mcg/mL injection solution hydrocodone 5 mg-acetaminophen 325 1 tab PO Q8H PRN pain 08/11/23 07/06/24 mg tablet tizanidine 4 mg tablet 8 mg PO BEDTIME 08/11/23 07/06/24 pantoprazole 40 mg tablet,delayed 40 mg PO BID 09/13/23 07/06/24 release calcium carbonate 1,200 mg PO DAILY 03/17/24 07/06/24 ferrous sulfate 325 mg (65 mg 325 mg PO DAILY 03/17/24 07/06/24 iron) tablet (FeroSul) gabapentin 300 mg capsule 300 mg PO Q12H 03/17/24 07/06/24 multivitamin 1 tab PO DAILY 03/17/24 07/06/24 amitriptyline 100 mg tablet 100 mg PO .QHS 03/22/24 07/06/24 Previous Rx's ?Medication ?Instructions ?Recorded levofloxacin 750 mg tablet 750 mg PO DAILY 10 days #10 tabs 07/07/24 metronidazole 500 mg tablet 500 mg PO Q6H #40 tabs 07/07/24 Allergies Allergy/AdvReac Type Severity Reaction Status Date / Time ketorolac (From Toradol) Allergy Intermediate Rash Verified 08/10/24 17:13 meperidine (From Demerol) Allergy Intermediate Rash Verified 08/10/24 17:13 prochlorperazine (From Allergy Intermediate hallucinati Verified 08/10/24 17:13 Compazine) ons [facility] Medical History (Updated 08/10/24 @ 20:52 by Cyril Antonio MD) Colitis ?K52.9 - Noninfective gastroenteritis and colitis, unspecified (ICD-10) Flank pain ?R10.9 - Unspecified abdominal pain (ICD-10) Uncontrolled hypertension ?I10 - Essential (primary) hypertension (ICD-10) Nausea & vomiting ?R11.2 - Nausea with vomiting, unspecified (ICD-10) Right flank pain ?R10.9 - Unspecified abdominal pain (ICD-10) Nausea & vomiting ?R11.2 - Nausea with vomiting, unspecified (ICD-10) Mass of right parotid gland ?K11.8 - Other diseases of salivary glands (ICD-10) Migraines ?G43.909 - Migraine, unspecified, not intractable, without status migrainosus (ICD-10) Anxiety ?F41.9 - Anxiety disorder, unspecified (ICD-10) Depression ?F32.A - Depression, unspecified (ICD-10) Stomach ulcer ?K25.9 - Gastric ulcer, unspecified as acute or chronic, without hemorrhage or perforation (ICD-10) Pancreatitis ?K85.90 - Acute pancreatitis without necrosis or infection, unspecified (ICD-10) Kidney stone ?N20.0 - Calculus of kidney (ICD-10) Surgical History (Updated 03/22/24 @ 10:21 by Gin Machado) History of fine needle aspiration with imaging guidance ?Z98.890 - Other specified postprocedural states (ICD-10) Hx laparoscopic cholecystectomy ?Z90.49 - Acquired absence of other specified parts of digestive tract (ICD-10) History of lumpectomy of right breast ?Z98.890 - Other specified postprocedural states (ICD-10) History of placement of ear tubes ?Z96.22 - Myringotomy tube(s) status (ICD-10) S/P insertion of spinal cord stimulator ?Z96.89 - Presence of other specified functional implants (ICD-10) History of knee replacement procedure of left knee ?Z96.652 - Presence of left artificial knee joint (ICD-10) Gastric bypass status for obesity ?Z98.84 - Bariatric surgery status (ICD-10) H/O: hysterectomy ?Z90.710 - Acquired absence of both cervix and uterus (ICD-10) Hx of appendectomy ?Z90.49 - Acquired absence of other specified parts of digestive tract (ICD-10) Family History (Updated 08/11/23 @ 10:31 by Josie Pantoja) Grandfather Family history of COPD (chronic obstructive pulmonary disease) Father Family history of cancer Family history of diabetes mellitus Family history of hypertension Family history of stroke Sister Family history of cancer Family history of diabetes mellitus Grandmother Family history of diabetes mellitus Family history of hypertension Social History Within the past year, how often did you have a drink containing alcohol: never Within the past year, how many standard drinks containing alcohol did you have on a typical day: 1 or 2 Within the past year, how often did you have six or more drinks on one occasion: never Total score: 0 Score interpretation: A score less than 3 is consistent with normal alcohol consumption. Smoking status: Former smoker Second hand tobacco smoke exposure: No Non-prescribed substance use: denies use Previous occupational history: [employer] Known occupational exposures/hazards: No Highest level of school completed/degree received: some college, no degree Are you now , , , , never or living with a partner: In a typical week, how many times do you talk on the telephone with family, friends, or neighbors: 3 or more times per week How often do you get together with friends or relatives: 3 or more times per week How often do you attend restorationism or oriental orthodox services: 4 or more times per year Do you belong to any clubs or organizations such as restorationism groups unions, fraternal or athletic groups, or school groups: no Total score: 3 Score interpretation: A score of greater than or equal to 2 indicates the lowest level of social isolation. Little interest or pleasure in doing things: not at all Feeling down, depressed, or hopeless: not at all Feel stressed/tense/nervous/anxious/difficulty sleeping: not at all Do you think of yourself as: straight/heterosexual Gender Identity: female Exam Constitutional Vital Signs, click to edit/add: Last Vital Signs Temp 98.8 F 08/10/24 17:09 Pulse 100 H 08/10/24 17:09 Resp 20 08/10/24 17:09 BP 126/99 H 08/10/24 17:09 Pulse Ox 99 08/10/24 17:48 O2 Del Method Room Air 08/10/24 17:48 Course Vital Signs Vital signs: Vital Signs Temperature 98.8 F 08/10/24 17:09 Pulse Rate 100 H 08/10/24 17:09 Respiratory Rate 20 08/10/24 17:09 Blood Pressure 126/99 H 08/10/24 17:09 Pulse Oximetry 99 08/10/24 17:09 Temperature 98.8 F 08/10/24 17:09 Pulse Rate 100 H 08/10/24 17:09 Respiratory Rate 20 08/10/24 17:09 Blood Pressure 126/99 H 08/10/24 17:09 Pulse Oximetry 99 08/10/24 17:48 Oxygen Delivery Method Room Air 08/10/24 17:48 MDM - Abdominal Pain MDM Narrative Medical decision making narrative: patient presents with abdominal pain for 4 days. Also found to have hematuria. CT ordered at change of shift. CT abdomen with transient appearing intussusception. no evidence of bowel obstruction. Discussed with delinquency prevention officer Surgeon Dr Hassan who did not feel this represented the cause of her pain. she does have hematuria and has had it with past visits. She does not have a uterus. CT without renal findings to explain the hematuria patient informed she should followup with Urology regarding her hematuria. States she has seen Dr zuniga in the past and can follow up with him She has evidence of constipation on CT as well. Not clear what is causing her pain. Her labs are all Normal except for mild elevation of Alk phos. This also does not explain her left sided abdominal pain. patient re examined has tenderness without guarding. advised of the plan to supply pain medication for tonight and have her either see her PCP tomorrow or return to ER for recheck. She is also advised she can d/c antibiotics prescribed by her PCP as there is no evidence of infection at this time Lab Data Labs: Lab Results 08/10/24 08/10/24 Range/Units 17:18 17:28 WBC 5.2 (4.0-11.0) 10^3/uL RBC 4.47 (4.20-5.40) 10^6/uL Hgb 12.2 (12.0-16.0) g/dL Hct 38.5 (36.0-48.0) % MCV 86.1 (81.0-99.0) fL MCH 27.3 (26.7-34.0) pg MCHC 31.7 (29.9-35.2) g/dL RDW 13.1 (11.0-15.0) % Plt Count 275 (150-450) 10^3/uL MPV 9.5 (9.5-13.5) fL Neut % (Auto) 52.9 (43.0-75.0) % Lymph % (Auto) 39.2 (20.5-60.0) % [place] % (Auto) 6.0 (1.7-12.0) % Eos % (Auto) 1.3 (0.9-7.0) % Baso % (Auto) 0.4 (0.2-2.0) % Neut # (Auto) 2.8 (1.4-6.5) 10^3/uL Lymph # (Auto) 2.0 (1.2-3.8) 10^3/uL [place] # (Auto) 0.3 (0.3-0.8) 10^3/uL Eos # (Auto) 0.1 (0.0-0.7) 10^3/uL Baso # (Auto) 0.0 (0.0-0.1) 10^3/uL Abs Immat Gran (auto) 0.01 (0.00-0.03) 10^3/uL Imm/Tot Granulo (auto) 0.2 (0.0-0.5) % Sodium 144 (136-145) mmol/L Potassium 4.0 (3.5-5.1) mmol/L Chloride 105 (98-107) mmol/L Carbon Dioxide 28.1 (21.0-32.0) mmol/L Anion Gap 14.9 BUN 11.0 (7.0-18.0) mg/dL Creatinine 0.79 (0.55-1.02) mg/dL Est GFR ( Amer) >60 (>=60 mL/min/1.73m^2) Est GFR (Non-Af Amer) >60 (>=60 mL/min/1.73m^2) BUN/Creatinine Ratio 13.9 Glucose 94 (74-106) mg/dL Lactate 1.9 (0.4-2.0) mmol/L Calcium 8.9 (8.5-10.1) mg/dL Total Bilirubin 0.3 (0.2-1.0) mg/dL AST 17 (15-37) U/L ALT 18 (14-59) U/L Alkaline Phosphatase 120 H (46-116) U/L Total Protein 7.6 (6.4-8.2) g/dL Albumin 3.8 (3.4-5.0) g/dL Globulin 3.8 g/dL Albumin/Globulin Ratio 1.0 Lipase 68.0 (16.0-77.0) U/L Urine Color Yellow (YELLOW) Urine Clarity Clear (CLEAR) Urine pH 6.0 (5.0-9.0) Ur Specific [place] 1.025 (1.005-1.025) Urine Protein Negative (NEG/TRACE) mg/dL Urine Glucose (UA) Negative (NEGATIVE) mg/dL Urine Ketones Trace A (NEGATIVE) mg/dL Urine Occult Blood Large A (NEGATIVE) Urine Nitrite Negative (NEGATIVE) Urine Bilirubin Negative (NEGATIVE) Urine Urobilinogen 0.2 (0.2-1.0) EU/dL Ur Leukocyte Esterase Trace A (NEGATIVE) Urine RBC 50-75 A (0-2) #/HPF Urine WBC 0-2 A (NONE SEEN) #/HPF Ur Squamous Epith Cells Few A (NONE/RARE) #/LPF Urine Crystals None seen (None Seen) #/HPF Urine Bacteria Trace A (NONE SEEN) #/HPF Urine Casts None seen (NONE SEEN) #/LPF Urine Mucus None seen (NONE SEEN) Ur Culture Indicated? No Imaging Data Abdominal x-ray: Radiologist's impression: ITS Impressions Abdomen/Pelvis CT 08/10/24 17:30 Impression: 1. Small bowel intussusception is seen in left side of the abdomen with no evidence of bowel obstruction, most likely transient intussusception. Follow-up may be recommended if clinically warranted. 2. Mild increase in fecal matter in the colon which may suggest constipation. Please correlate clinically. 3. No renal or ureteral stones are seen. No hydronephrosis. No evidence of diverticulitis. Electronically authenticated by: ORLANDO PULIDO Date: 08/10/2024 20:04 Discharge Plan Discharge Chief Complaint: Abdominal Pain Clinical Impression: Abdominal pain, Constipation, Hematuria Patient Disposition: Home, Self-Care Prescriptions / Home Meds: No Action cyanocobalamin (vitamin B-12) 1,000 mcg/mL solution 1,000 mcg IM .monthly tizanidine 4 mg tablet 8 mg PO BEDTIME hydrocodone-acetaminophen 5-325 mg tablet 1 tab PO Q8H PRN (Reason: pain) pantoprazole 40 mg tablet,delayed release (DR/EC) 40 mg PO BID amitriptyline 100 mg tablet 100 mg PO .QHS gabapentin 300 mg capsule 300 mg PO Q12H multivitamin Tablet 1 tab PO DAILY ferrous sulfate [FeroSul] 325 mg (65 mg iron) tablet 325 mg PO DAILY calcium carbonate 600 mg calcium (1,500 mg) tablet 1,200 mg PO DAILY levofloxacin 750 mg tablet 750 mg PO DAILY 10 Days Qty: 10 0RF metronidazole 500 mg tablet 500 mg PO Q6H Qty: 40 0RF Print Language: German Instructions: Constipation (ED), Hematuria (ED), Abdominal Pain (ED) Additional Instructions: follow up with Dr Ledesma tomorrow or return to ER for recheck follow up with Urology Dr Zuniga for blood in the urine Referrals: Yasir Ledesma MD [Primary Care Provider] - 1 week
--- NOTE | 2024-08-10 17:30 | CT_ITS ---
The [address] [address] Patient Name: KRISTINE MADDEN MRN: [id number] date: 1980 Sex: F Assigned Patient Location: ER Current Patient Location: [facility] Accession/Order Number: [id number] Exam Date: 08/10/2024 17:58 Report Date: 08/10/2024 20:04 At the request of: KUSUM QUINTANA Procedure: CT abdomen pelvis w con Indication: Left lower quadrant pain. Kidney stone versus diverticulitis. Comparison: 07/06/2024 exam Procedure: Axial images were made from the diaphragms through the symphysis pubis. No oral contrast was given prior to scanning. 100 mL Omnipaque 300 Intravenous contrast was given. Dose reduction techniques were achieved by using automated exposure control and/or adjustment of mA and/or kV according to patient size and/or use of iterative reconstruction technique. Findings: Liver/Biliary System: No liver masses. No intra or extrahepatic biliary dilatation. Status postcholecystectomy. Pancreas/Spleen: No evidence of acute pancreatitis. Pancreatic duct is not dilated. No pancreatic lesions. No splenomegaly or splenic masses. Kidneys/Adrenals: Normal symmetrical nephrograms. No renal masses. No renal or ureteral stones are seen. No hydronephrosis or hydroureter bilaterally. No adrenal nodules. Aorta/Vessels: No evidence of aortic aneurysm. Patent IVC, renal veins, hepatic veins and portal venous system. Bowel/Fluid/Nodes: Small bowel intussusception is seen in left side of the abdomen with no evidence of bowel obstruction, most likely transient intussusception (best seen on sagittal image LOC: -77.20). Follow-up may be recommended if clinically warranted. No bowel dilatation or bowel wall thickening. Mild increase in fecal matter in colon which may suggest constipation. Please correlate clinically. Appendix was not identified, however no secondary signs of appendicitis present. Status post gastric bypass. No ascites or fluid collections. No adenopathy. Lung bases: Clear. Other findings: No aggressive osseous lesions are seen. Pelvis: No pelvic masses or adenopathy. No free fluid seen in the pelvis. Status post hysterectomy. Unremarkable bladder. Other Findings: No aggressive osseous lesions are seen. CT/CT abdomen pelvis w con Impression: 1. Small bowel intussusception is seen in left side of the abdomen with no evidence of bowel obstruction, most likely transient intussusception. Follow-up may be recommended if clinically warranted. 2. Mild increase in fecal matter in the colon which may suggest constipation. Please correlate clinically. 3. No renal or ureteral stones are seen. No hydronephrosis. No evidence of diverticulitis. Electronically authenticated by: ORLANDO PULIDO Date: 08/10/2024 20:04
[2024-08-10 17:42] LABS: Basophils Percent Auto 0.4 % (0.2-2.0); Eosinophils Absolute Auto 0.1 10^3/uL (0.0-0.7); Eosinophils Percent Auto 1.3 % (0.9-7.0); Hematocrit 38.5 % (36.0-48.0); Hemoglobin 12.2 g/dL (12.0-16.0); Immature Granulocytes Abs Auto 0.01 10^3/uL (0.00-0.03); Immature Granulocytes Pct Auto 0.2 % (0.0-0.5); Lymphocytes Percent Auto 39.2 % (20.5-60.0); Mean Corpuscular HGB Conc 31.7 g/dL (29.9-35.2); Mean Corpuscular Hemoglobin 27.3 pg (26.7-34.0); Mean Corpuscular Volume 86.1 fL (81.0-99.0); Mean Platelet Volume 9.5 fL (9.5-13.5); Monocytes Absolute Auto 0.3 10^3/uL (0.3-0.8); Neutrophils Absolute Auto 2.8 10^3/uL (1.4-6.5); Neutrophils Percent Auto 52.9 % (43.0-75.0); Platelet Count 275 10^3/uL (150-450); Red Blood Count 4.47 10^6/uL (4.20-5.40); Red Cell Distribution Width 13.1 % (11.0-15.0); White Blood Count 5.2 10^3/uL (4.0-11.0)
[2024-08-10] MEDS: 0.9 % SODIUM CHLORIDE 1,000 ML 100 ML IV (17:42)
[2024-08-10 17:48] VITALS: O2SAT 99
[2024-08-10 17:48] LABS: Bilirubin Urine NEGATIVE (NEGATIVE); Blood Urine LARGE (NEGATIVE); Clarity Urine CLEAR (CLEAR); Color Urine YELLOW (YELLOW); Glucose Urine UA NEGATIVE (NEGATIVE); Ketones Urine TRACE mg/dL (NEGATIVE); Leukocyte Esterase Urine TRACE (NEGATIVE); Nitrite Urine NEGATIVE (NEGATIVE); Protein Urine NEGATIVE (NEG/TRACE); Specific Gravity Urine 1.025 (1.005-1.025); Urobilinogen Urine 0.2 EU/dL (0.2-1.0)
[2024-08-10 17:50] LABS: Urine Microscopic Indicated YES
[2024-08-10 18:01] LABS: Bacteria Urine TRACE #/HPF (NONE SEEN); Mucus Urine NONE SEEN (NONE SEEN); RBC Urine 50-75 #/HPF (0-2); Squamous Epithelial Cell Urine FEW #/LPF (NONE/RARE); WBC Urine 0-2 #/HPF (NONE SEEN)
[2024-08-10 18:02] LABS: Alanine Aminotransferase 18 U/L (14-59); Albumin Level 3.8 g/dL (3.4-5.0); Alkaline Phosphatase 120 U/L (46-116); Anion Gap 14.9; Aspartate Amino Transferase 17 U/L (15-37); BUN Creatinine Ratio 13.9; Bilirubin Total 0.3 mg/dL (0.2-1.0); Calcium 8.9 mg/dL (8.5-10.1); Carbon Dioxide 28.1 mmol/L (21.0-32.0); Chloride 105 mmol/L (98-107); Estimated GFR (African America >60 (>=60 mL/min/1.73m^2); Estimated GFR (Non-African Ame >60 (>=60 mL/min/1.73m^2); Globulin 3.8 g/dL; Glucose 94 mg/dL (74-106); Sodium 144 mmol/L (136-145); Total Protein 7.6 g/dL (6.4-8.2)
[2024-08-10 18:02] LABS: Cast Seen? NONE SEEN #/LPF (NONE SEEN); Crystals Seen? None Seen #/HPF (None Seen); Urine Culture Indicated NO
[2024-08-10 18:04] LABS: Lactate/Lactic Acid 1.9 mmol/L (0.4-2.0)
[2024-08-10] MEDS: ONDANSETRON PF 4 MG/2 ML VIAL IV (18:44)
[2024-08-10] MEDS: HYDROMORPHONE HCL 1 MG/ML CARTRIDGE IV (19:14)
[2024-08-10] MEDS: HYDROCODONE/ACET 5-325 MG TABLET 4 TAB PO (21:09)
== END 2024-08-10 21:17 | disposition home or self-care (01) ==
PROVIDERS: Emergency Medicine Emergency Medical Services; Emergency Provider Internal Medicine; PCP Family Medicine
DX: K59.00 Constipation, unspecified (principal); R10.9 Unspecified abdominal pain; R31.9 Hematuria, unspecified; Z87.442 Personal history of urinary calculi; Z90.49 Acquired absence of other specified parts of digestive tract; Z96.652 Presence of left artificial knee joint; Z98.84 Bariatric surgery status; Z90.710 Acquired absence of both cervix and uterus; Z87.891 Personal history of nicotine dependence
CPT/HCPCS: 36415; 74177; 80053; 81001; 83605; 83690; 85025; 96374; 96375; 99285; J1171; J2405; Q9967

== ENCOUNTER 2024-08-16 09:23 | Observation (INO) | payer OTHER, SELFPAY ==
[2024-08-16] VITALS (8 sets, daily range): BP systolic 134–153; BP diastolic 91–117; PULSE 69–96; TEMP 36.4–37; O2SAT 98–100; BMI 26.6; BMI 27.4
--- NOTE | 2024-08-16 09:47 | CT_ITS ---
[place] [id number] Patient Name: KRISTINE MADDEN MRN: [id number] date: 1980 Sex: F Assigned Patient Location: ER Current Patient Location: ER Accession/Order Number: [id number] Exam Date: 08/16/2024 10:21 Report Date: 08/16/2024 10:48 At the request of: KATHE FRAUSTO Procedure: CT abdomen pelvis wo con EXAMINATION: CT abdomen pelvis wo con HISTORY: flank pain COMPARISON: No relevant comparison available. TECHNIQUE: Axial, Coronal, and Sagittal images were created without IV contrast. Dose reduction techniques were achieved by using automated exposure control and/or adjustment of mA and/or kV according to patient size and/or use of iterative reconstruction technique. FINDINGS: LUNG BASES: No visible pulmonary or pleural disease. LIVER: No enlargement, atrophy, abnormal density, or significant focal lesion. BILIARY: Surgical clips from cholecystectomy PANCREAS: No lesion, fluid collection, ductal dilatation, or atrophy. SPLEEN: No enlargement or focal lesion. ADRENALS: No mass or enlargement. KIDNEYS: No mass, obstruction, or calcification. BOWEL/MESENTERY: Suture lines of gastroesophageal junction. Nonobstructive bowel gas pattern. Normal appendix. AORTA/VASCULAR: No aneurysm or dissection. RETROPERITONEUM: No mass or adenopathy. LYMPH NODES: No adenopathy. URINARY BLADDER: No visible focal wall thickening, lesion, or calculus. PELVIC ORGANS: No visible mass. Pelvic organs appropriate for patient age. ABDOMINAL WALL: No mass or hernia. BONES: No bony lesion or fracture. OTHER: Implanted neurostimulator with the leads extending to the left L3-4 and L4-L5 neuroforamen CT/CT abdomen pelvis wo con IMPRESSION: No acute intraperitoneal abnormality Electronically authenticated by: CARISSA JOHN Date: 08/16/2024 10:48
[2024-08-16] MEDS: ONDANSETRON PF 4 MG/2 ML VIAL IV ×3 (09:50→21:25)
[2024-08-16] MEDS: 0.9 % SODIUM CHLORIDE 500 ML IV (09:50)
[2024-08-16 09:52] LABS: Basophils Percent Auto 0.4 % (0.2-2.0); Eosinophils Absolute Auto 0.1 10^3/uL (0.0-0.7); Eosinophils Percent Auto 1.3 % (0.9-7.0); Hematocrit 38.1 % (36.0-48.0); Hemoglobin 12.2 g/dL (12.0-16.0); Immature Granulocytes Abs Auto 0.01 10^3/uL (0.00-0.03); Immature Granulocytes Pct Auto 0.2 % (0.0-0.5); Lymphocytes Absolute Auto 2.1 10^3/uL (1.2-3.8); Lymphocytes Percent Auto 38.7 % (20.5-60.0); Mean Corpuscular Hemoglobin 27.5 pg (26.7-34.0); Mean Corpuscular Volume 85.8 fL (81.0-99.0); Mean Platelet Volume 9.8 fL (9.5-13.5); Monocytes Absolute Auto 0.4 10^3/uL (0.3-0.8); Monocytes Percent Auto 6.4 % (1.7-12.0); Neutrophils Absolute Auto 2.9 10^3/uL (1.4-6.5); Platelet Count 236 10^3/uL (150-450); Red Blood Count 4.44 10^6/uL (4.20-5.40); Red Cell Distribution Width 13.1 % (11.0-15.0); White Blood Count 5.5 10^3/uL (4.0-11.0)
[2024-08-16] MEDS: MORPHINE SULFATE 4 MG/ML VIAL IV (09:59)
[2024-08-16 10:11] LABS: Alanine Aminotransferase 21 U/L (14-59); Albumin Globulin Ratio 0.9; Albumin Level 3.7 g/dL (3.4-5.0); Alkaline Phosphatase 118 U/L (46-116); Anion Gap 14.3; Aspartate Amino Transferase 34 U/L (15-37); BUN Creatinine Ratio 21.6; Bilirubin Total 0.5 mg/dL (0.2-1.0); Calcium 8.8 mg/dL (8.5-10.1); Carbon Dioxide 26.9 mmol/L (21.0-32.0); Chloride 105 mmol/L (98-107); Estimated GFR (African America >60 (>=60 mL/min/1.73m^2); Estimated GFR (Non-African Ame >60 (>=60 mL/min/1.73m^2); Globulin 3.9 g/dL; Glucose 99 mg/dL (74-106); Potassium 5.2 mmol/L (3.5-5.1); Sodium 141 mmol/L (136-145); Total Protein 7.6 g/dL (6.4-8.2)
--- NOTE | 2024-08-16 10:23 | ED_ITS ---
HPI HPI - General Adult General Chief complaint: Abdominal Pain Stated complaint: ABDOMINAL PAIN Time Seen by Provider: 08/16/24 09:25 Source: patient Mode of arrival: walk-in Limitations: no limitations History of Present Illness HPI narrative: Patient presents to ED complaining of left lower abdominal pain and left flank pain. She was sent over to me from Dr. Ledesma. She has a history of diverticulitis and he is concerned she may be in a flareup. She was here last week for a similar situation and had a negative workup. He states sometimes it is not seen on the CT with her and when she is in an acute attack she has a lot of vomiting and dehydration can occur. She was sent over to be admitted. She is allergic to Toradol and request morphine or Dilaudid. She was given IV Zofran upon arrival with some IV fluids because she states she is not keeping anything down. Is tearful and states it feels like a stabbing pain in the left flank that round to the front. Related Data Home Medications ?Medication ?Instructions ?Recorded ?Confirmed cyanocobalamin (vitamin B-12) 1,000 mcg IM .monthly 08/11/23 08/16/24 1,000 mcg/mL injection solution hydrocodone 5 mg-acetaminophen 325 1 tab PO Q8H PRN pain 08/11/23 08/16/24 mg tablet tizanidine 4 mg tablet 8 mg PO BEDTIME 08/11/23 08/16/24 pantoprazole 40 mg tablet,delayed 40 mg PO BID 09/13/23 08/16/24 release calcium carbonate 1,200 mg PO DAILY 03/17/24 08/16/24 multivitamin 1 tab PO DAILY 03/17/24 08/16/24 amitriptyline 100 mg tablet 100 mg PO .QHS 03/22/24 08/16/24 ondansetron HCl 4 mg tablet 4 mg PO Q6H PRN nausea and vomiting 08/16/24 08/16/24 pregabalin 50 mg capsule 50 mg PO BID 08/16/24 08/16/24 promethazine 25 mg tablet 25 mg PO Q12H PRN nausea and 08/16/24 08/16/24 vomiting Allergies Allergy/AdvReac Type Severity Reaction Status Date / Time ketorolac (From Toradol) Allergy Intermediate Rash Verified 08/10/24 17:13 meperidine (From Demerol) Allergy Intermediate Rash Verified 08/10/24 17:13 prochlorperazine (From Allergy Intermediate hallucinati Verified 08/10/24 17:13 Compazine) ons Opioid HPI Opioid Management Most Recent Opioid Data: Last Pain Scale 8 08/16/24 09:59 08/16/24 Last ED Pain Assessment 08/10/24 17:49 Last MAR Pain Assessment 08/16/24 09:59 Last ORT Total Score 1 07/06/24 13:40 07/06/24 Last ORT Risk Category Low Risk 07/06/24 13:40 07/06/24 Ur Phencyclidine Scrn Negative (NEGATIVE) 07/06/24 10:06 0904/03 Review of Systems ROS Status of ROS 10 or more systems reviewed and unremark able except as noted in history and [facility] History (Updated 08/16/24 @ 13:37 by Mouna Dunham DO) Colitis ?K52.9 - Noninfective gastroenteritis and colitis, unspecified (ICD-10) Flank pain ?R10.9 - Unspecified abdominal pain (ICD-10) Uncontrolled hypertension ?I10 - Essential (primary) hypertension (ICD-10) Nausea & vomiting ?R11.2 - Nausea with vomiting, unspecified (ICD-10) Right flank pain ?R10.9 - Unspecified abdominal pain (ICD-10) Nausea & vomiting ?R11.2 - Nausea with vomiting, unspecified (ICD-10) Mass of right parotid gland ?K11.8 - Other diseases of salivary glands (ICD-10) Migraines ?G43.909 - Migraine, unspecified, not intractable, without status migrainosus (ICD-10) Anxiety ?F41.9 - Anxiety disorder, unspecified (ICD-10) Depression ?F32.A - Depression, unspecified (ICD-10) Stomach ulcer ?K25.9 - Gastric ulcer, unspecified as acute or chronic, without hemorrhage or perforation (ICD-10) Pancreatitis ?K85.90 - Acute pancreatitis without necrosis or infection, unspecified (ICD- 10) Kidney stone ?N20.0 - Calculus of kidney (ICD-10) Surgical History (Updated 03/22/24 @ 10:21 by Gin Machado) History of fine needle aspiration with imaging guidance ?Z98.890 - Other specified postprocedural states (ICD-10) Hx laparoscopic cholecystectomy ?Z90.49 - Acquired absence of other specified parts of digestive tract (ICD- 10) History of lumpectomy of right breast ?Z98.890 - Other specified postprocedural states (ICD-10) History of placement of ear tubes ?Z96.22 - Myringotomy tube(s) status (ICD-10) S/P insertion of spinal cord stimulator ?Z96.89 - Presence of other specified functional implants (ICD-10) History of knee replacement procedure of left knee ?Z96.652 - Presence of left artificial knee joint (ICD-10) Gastric bypass status for obesity ?Z98.84 - Bariatric surgery status (ICD-10) H/O: hysterectomy ?Z90.710 - Acquired absence of both cervix and uterus (ICD-10) Hx of appendectomy ?Z90.49 - Acquired absence of other specified parts of digestive tract (ICD- 10) Family History (Updated 08/11/23 @ 10:31 by Josie Pantoja) Grandfather Family history of COPD (chronic obstructive pulmonary disease) Father Family history of cancer Family history of diabetes mellitus Family history of hypertension Family history of stroke Sister Family history of cancer Family history of diabetes mellitus Grandmother Family history of diabetes mellitus Family history of hypertension Social History Within the past year, how often did you have a drink containing alcohol: never Within the past year, how many standard drinks containing alcohol did you have on a typical day: 1 or 2 Within the past year, how often did you have six or more drinks on one occasion: never Total score: 0 Score interpretation: A score less than 3 is consistent with normal alcohol consumption. Smoking status: Former smoker Second hand tobacco smoke exposure: No Non-prescribed substance use: denies use Previous occupational history: [employer] Known occupational exposures/hazards: No Highest level of school completed/degree received: some college, no degree Are you now , , , , never or living with a partner: In a typical week, how many times do you talk on the telephone with family, friends, or neighbors: 3 or more times per week How often do you get together with friends or relatives: 3 or more times per week How often do you attend oriental orthodox or mu-ism services: 4 or more times per year Do you belong to any clubs or organizations such as oriental orthodox groups unions, fraternal or athletic groups, or school groups: no Total score: 3 Score interpretation: A score of greater than or equal to 2 indicates the [facility] level of social isolation. Little interest or pleasure in doing things: not at all Feeling down, depressed, or hopeless: not at all Feel stressed/tense/nervous/anxious/difficulty sleeping: not at all Do you think of yourself as: straight/heterosexual Gender Identity: female Exam Narrative Exam Narrative: Time Seen: [] Vital Signs: [Per nurse's notes.] General: [Alert] mild distress Skin: [Warm, dry, no rash.] Head: [Normocephalic, atraumatic.] Neck: [Supple, trachea midline.] Eye: [Pupils are equal, round and reactive to light, extraocular movements are intact, normal conjunctiva.] Ears, nose, mouth and throat: oral mucosa moist. Cardiovascular: [Regular rate and rhythm, no murmur.] Respiratory: [Lungs are clear to auscultation, respirations are non-labored, breath sounds are equal.] Chest wall: [No tenderness, no deformity.] Gastrointestinal: [Soft, left lower quadrant pain left CVA tenderness, non distended, normal bowel sounds.] MSK: 5 out of 5 muscle strength x 4 extremities no calf pain or edema Lymphatics: [No lymphadenopathy.] Psychiatric: [Cooperative, tearful] Neurological: [Alert and oriented to person, place, time, and situation, no focal neurological deficit observed.] Constitutional Vital Signs, click to edit/add: Last Vital Signs Temp 97.7 F 08/16/24 09:37 Pulse 96 H 08/16/24 09:37 Resp 18 08/16/24 09:37 BP 153/117 H 08/16/24 09:37 Pulse Ox 99 08/16/24 09:37 O2 Del Method Room Air 08/16/24 09:37 Course Vital Signs Vital signs: Vital Signs Temperature 97.7 F 08/16/24 09:37 Pulse Rate 96 H 08/16/24 09:37 Respiratory Rate 18 08/16/24 09:37 Blood Pressure 153/117 H 08/16/24 09:37 Pulse Oximetry 99 08/16/24 09:37 Oxygen Delivery Method Room Air 08/16/24 09:37 Temperature 97.7 F 08/16/24 09:37 Pulse Rate 96 H 08/16/24 09:37 Respiratory Rate 18 08/16/24 09:37 Blood Pressure 153/117 H 08/16/24 09:37 Pulse Oximetry 99 08/16/24 09:37 Oxygen Delivery Method Room Air 08/16/24 09:37 Medical Decision Making MDM Narrative Medical decision making narrative: Patient has continued flank pain and nausea. Unable to tolerate p.o. She will be admitted for dehydration. She does have evidence of UTI so she was given IV Rocephin and IV fluids here. I spoke to Dr. Ledesma and he will admit the patient and she is comfortable with care plan for being admitted. Differential Diagnosis Differential Diagnosis: Kidney stone, UTI, pyelonephritis, diverticulitis, dehydration Medical Records Medical records reviewed: Yes I reviewed the patient's medical records Lab Data Lab results reviewed: Yes I reviewed the patient's lab results Labs: Lab Results 08/16/24 08/16/24 Range/Units 09:40 10:55 WBC 5.5 (4.0-11.0) 10^3/uL RBC 4.44 (4.20-5.40) 10^6/uL Hgb 12.2 (12.0-16.0) g/dL Hct 38.1 (36.0-48.0) % MCV 85.8 (81.0-99.0) fL MCH 27.5 (26.7-34.0) pg MCHC 32.0 (29.9-35.2) g/dL RDW 13.1 (11.0-15.0) % Plt Count 236 (150-450) 10^3/uL MPV 9.8 (9.5-13.5) fL Neut % (Auto) 53.0 (43.0-75.0) % Lymph % (Auto) 38.7 (20.5-60.0) % [place] % (Auto) 6.4 (1.7-12.0) % Eos % (Auto) 1.3 (0.9-7.0) % Baso % (Auto) 0.4 (0.2-2.0) % Neut # (Auto) 2.9 (1.4-6.5) 10^3/uL Lymph # (Auto) 2.1 (1.2-3.8) 10^3/uL [place] # (Auto) 0.4 (0.3-0.8) 10^3/uL Eos # (Auto) 0.1 (0.0-0.7) 10^3/uL Baso # (Auto) 0.0 (0.0-0.1) 10^3/uL Abs Immat Gran (auto) 0.01 (0.00-0.03) 10^3/uL Imm/Tot Granulo (auto) 0.2 (0.0-0.5) % Sodium 141 (136-145) mmol/L Potassium 5.2 H (3.5-5.1) mmol/L Chloride 105 (98-107) mmol/L Carbon Dioxide 26.9 (21.0-32.0) mmol/L Anion Gap 14.3 BUN 16.0 (7.0-18.0) mg/dL Creatinine 0.74 (0.55-1.02) mg/dL Est GFR ( Amer) >60 (>=60 mL/min/1.73m^2) Est GFR (Non-Af Amer) >60 (>=60 mL/min/1.73m^2) BUN/Creatinine Ratio 21.6 Glucose 99 (74-106) mg/dL Lactate 0.9 (0.4-2.0) mmol/L Calcium 8.8 (8.5-10.1) mg/dL Magnesium 2.0 (1.8-2.4) mg/dL Total Bilirubin 0.5 (0.2-1.0) mg/dL AST 34 (15-37) U/L ALT 21 (14-59) U/L Alkaline Phosphatase 118 H (46-116) U/L Total Protein 7.6 (6.4-8.2) g/dL Albumin 3.7 (3.4-5.0) g/dL Globulin 3.9 g/dL Albumin/Globulin Ratio 0.9 Amylase 50 (25-115) U/L Lipase 66.0 (16.0-77.0) U/L Urine Color Lt. yellow (YELLOW) Urine Clarity Sl cloudy (CLEAR) Urine pH 7.5 (5.0-9.0) Ur Specific [place] 1.020 (1.005-1.025) Urine Protein Negative (NEG/TRACE) mg/dL Urine Glucose (UA) Negative (NEGATIVE) mg/dL Urine Ketones Negative (NEGATIVE) mg/dL Urine Occult Blood Large A (NEGATIVE) Urine Nitrite Negative (NEGATIVE) Urine Bilirubin Negative (NEGATIVE) Urine Urobilinogen 1.0 (0.2-1.0) EU/dL Ur Leukocyte Esterase Large A (NEGATIVE) Urine RBC 20-50 A (0-2) #/HPF Urine WBC 10-20 A (NONE SEEN) #/HPF Ur Squamous Epith Cells Few A (NONE/RARE) #/LPF Urine Crystals None seen (None Seen) #/HPF Urine Bacteria Small A (NONE SEEN) #/HPF Urine Casts None seen (NONE SEEN) #/LPF Urine Mucus None seen (NONE SEEN) Ur Culture Indicated? Yes Imaging Data CT scan - abdomen: Radiologist's impression: ITS Impressions Abdomen/Pelvis CT 08/16/24 09:47 IMPRESSION: No acute intraperitoneal abnormality Electronically authenticated by: CARISSA JOHN Date: 08/16/2024 10:48 Discharge Plan Discharge Chief Complaint: Abdominal Pain Clinical Impression: UTI (urinary tract infection), Acute dehydration Patient Disposition: Admitted as Observation Time of Disposition Decision: 13:37 Condition: Fair Discharge Date/Time: 08/16/24 13:08
[2024-08-16 11:07] LABS: Bilirubin Urine NEGATIVE (NEGATIVE); Blood Urine LARGE (NEGATIVE); Clarity Urine SL CLOUDY (CLEAR); Color Urine LT. YELLOW (YELLOW); Glucose Urine UA NEGATIVE (NEGATIVE); Ketones Urine NEGATIVE (NEGATIVE); Leukocyte Esterase Urine LARGE (NEGATIVE); Nitrite Urine NEGATIVE (NEGATIVE); Protein Urine NEGATIVE (NEG/TRACE); pH Urine 7.5 (5.0-9.0)
[2024-08-16 11:16] LABS: Urine Microscopic Indicated YES
[2024-08-16 11:24] LABS: Bacteria Urine SMALL #/HPF (NONE SEEN); Cast Seen? NONE SEEN #/LPF (NONE SEEN); Crystals Seen? None Seen #/HPF (None Seen); Mucus Urine NONE SEEN (NONE SEEN); RBC Urine 20-50 #/HPF (0-2); Squamous Epithelial Cell Urine FEW #/LPF (NONE/RARE); Urine Culture Indicated YES
[2024-08-16] MEDS: HYDROMORPHONE HCL 0.5 MG/0.5 ML SYRINGE IV ×3 (11:46→20:33)
[2024-08-16] MEDS: CEFTRIAXONE 1,000 MG in 0.9 % SODIUM CHLORIDE 50 ML 100 MG IV (12:18)
--- NOTE | 2024-08-16 12:40 | P.HP_ITS ---
HPI H&P: HPI History of Present Illness Chief complaint: ABDOMINAL PAIN UTI Narrative: Patient was seen and evaluated in the office about a week ago, increasing abdominal pain more left lower quadrant. Started on oral antibiotics. She was also given 1 L of IV fluid as an outpatient. She has not improved over the last 4 to 5 days. Pain increasing actually, nausea vomiting persisting and getting worse throughout the course of the day yesterday, presented to the office and with symptoms progressing despite outpatient treatment and she was referred to the emergency room for admission. I saw patient up in the medical surgical floor, she was in bed, mild to moderate distress secondary to pain on the left side especially with any movement. In ER evaluation suggested likely pyelonephritis with positive blood and leukocytes in urine and CT scan negative for kidney stones. Patient was admitted for observation of treatment for pyelonephritis with failed outpatient treatment Opioid HPI Opioid Management Most Recent Pain and Opioid Data: Last Pain Scale 6 08/16/24 18:10 08/16/24 Last Pain Assessment 08/16/24 18:10 Last ED Pain Assessment 08/10/24 17:49 Last MAR Pain Assessment 08/16/24 17:16 Last ORT Total Score 2 08/16/24 13:12 08/16/24 Last ORT Risk Category Low Risk 08/16/24 13:12 08/16/24 Ur Phencyclidine Scrn Negative (NEGATIVE) 07/06/24 10:06 06/12 04/03 Review of Systems ROS Status of ROS 10 or more systems reviewed and unremark able except as noted in history and below [facility] Medical History (Updated 08/16/24 @ 13:54 by Vicki You RN) 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 (ICD-10) Colitis ?K52.9 - Noninfective gastroenteritis and colitis, unspecified (ICD-10) Flank pain ?R10.9 - Unspecified abdominal pain (ICD-10) Uncontrolled hypertension ?I10 - Essential (primary) hypertension (ICD-10) Nausea & vomiting ?R11.2 - Nausea with vomiting, unspecified (ICD-10) Right flank pain ?R10.9 - Unspecified abdominal pain (ICD-10) Nausea & vomiting ?R11.2 - Nausea with vomiting, unspecified (ICD-10) Mass of right parotid gland ?K11.8 - Other diseases of salivary glands (ICD-10) Migraines ?G43.909 - Migraine, unspecified, not intractable, without status migrainosus (ICD-10) Anxiety ?F41.9 - Anxiety disorder, unspecified (ICD-10) Depression ?F32.A - Depression, unspecified (ICD-10) Stomach ulcer ?K25.9 - Gastric ulcer, unspecified as acute or chronic, without hemorrhage or perforation (ICD-10) Pancreatitis ?K85.90 - Acute pancreatitis without necrosis or infection, unspecified (ICD- 10) Kidney stone ?N20.0 - Calculus of kidney (ICD-10) Surgical History (Updated 03/22/24 @ 10:21 by Gin Machado) History of fine needle aspiration with imaging guidance ?Z98.890 - Other specified postprocedural states (ICD-10) Hx laparoscopic cholecystectomy ?Z90.49 - Acquired absence of other specified parts of digestive tract (ICD- 10) History of lumpectomy of right breast ?Z98.890 - Other specified postprocedural states (ICD-10) History of placement of ear tubes ?Z96.22 - Myringotomy tube(s) status (ICD-10) S/P insertion of spinal cord stimulator ?Z96.89 - Presence of other specified functional implants (ICD-10) History of knee replacement procedure of left knee ?Z96.652 - Presence of left artificial knee joint (ICD-10) Gastric bypass status for obesity ?Z98.84 - Bariatric surgery status (ICD-10) H/O: hysterectomy ?Z90.710 - Acquired absence of both cervix and uterus (ICD-10) Hx of appendectomy ?Z90.49 - Acquired absence of other specified parts of digestive tract (ICD- 10) Family History (Updated 08/11/23 @ 10:31 by Josie Pantoja) Grandfather Family history of COPD (chronic obstructive pulmonary disease) Father Family history of cancer Family history of diabetes mellitus Family history of hypertension Family history of stroke Sister Family history of cancer Family history of diabetes mellitus Grandmother Family history of diabetes mellitus Family history of hypertension Social History Within the past year, how often did you have a drink containing alcohol: never Within the past year, how many standard drinks containing alcohol did you have on a typical day: 1 or 2 Within the past year, how often did you have six or more drinks on one occasion: never Total score: 0 Score interpretation: A score less than 3 is consistent with normal alcohol consumption. Smoking status: Former smoker Second hand tobacco smoke exposure: No Non-prescribed substance use: denies use Previous occupational history: [employer] Known occupational exposures/hazards: No Highest level of school completed/degree received: some college, no degree Are you now , , , , never or living with a partner: In a typical week, how many times do you talk on the telephone with family, friends, or neighbors: 3 or more times per week How often do you get together with friends or relatives: 3 or more times per week How often do you attend yazdanism or bahai services: 4 or more times per year Do you belong to any clubs or organizations such as yazdanism groups unions, [employer] or athletic groups, or school groups: no Total score: 3 Score interpretation: A score of greater than or equal to 2 indicates the lowest level of social isolation. Little interest or pleasure in doing things: not at all Feeling down, depressed, or hopeless: not at all Feel stressed/tense/nervous/anxious/difficulty sleeping: not at all Do you think of yourself as: straight/heterosexual Gender Identity: female Meds Home Medications and Allergies Home Medications ?Medication ?Instructions ?Recorded ?Confirmed ?Type cyanocobalamin (vitamin B-12) 1,000 mcg IM .monthly 08/11/23 08/16/24 History 1,000 mcg/mL injection solution hydrocodone 5 mg-acetaminophen 325 1 tab PO Q8H PRN pain 08/11/23 08/16/24 History mg tablet tizanidine 4 mg tablet 8 mg PO BEDTIME 08/11/23 08/16/24 History pantoprazole 40 mg tablet,delayed 40 mg PO BID 09/13/23 07/06/24 History release calcium carbonate 1,200 mg PO DAILY 03/17/24 08/16/24 History multivitamin 1 tab PO DAILY 03/17/24 08/16/24 History amitriptyline 100 mg tablet 100 mg PO .QHS 03/22/24 08/16/24 History ciprofloxacin HCl 500 mg tablet 500 mg PO BID 08/16/24 08/16/24 History metronidazole 500 mg tablet 500 mg PO TID 08/16/24 08/16/24 History pregabalin 50 mg capsule 50 mg PO BID 08/16/24 08/16/24 History promethazine 25 mg tablet 25 mg PO Q12H PRN nausea and 08/16/24 08/16/24 History vomiting Allergies Allergy/AdvReac Type Severity Reaction Status Date / Time ketorolac (From Toradol) Allergy Intermediate Rash Verified 08/10/24 17:13 meperidine (From Demerol) Allergy Intermediate Rash Verified 08/10/24 17:13 prochlorperazine (From Allergy Intermediate hallucinati Verified 08/10/24 17:13 Compazine) ons Exam Constitutional Vital Signs, click to edit/add: Last Vital Signs Temp 97.7 F 08/16/24 09:37 Pulse 96 H 08/16/24 09:37 Resp 18 08/16/24 09:37 BP 153/117 H 08/16/24 09:37 Pulse Ox 99 08/16/24 09:37 O2 Del Method Room Air 08/16/24 09:37 Documenting provider has reviewed patient's vital signs: yes Common normals: apparent distress (Moderate painful distress especially with movement) Chest Common normals: inspection of chest normal Respiratory Common normals: normal respiratory effort, no retractions and no use of accessory muscles Cardio Common normals: regular rate and regular rhythm GI Common normals: Normal to inspection, nondistended, normoactive bowel sounds present and soft to palpation; tender Palpation: tender (More in left lower quadrant, no rebound tenderness) Results Labs Labs: Short CBC 08/16/24 Range/Units 09:40 WBC 5.5 (4.0-11.0) 10^3/uL Hgb 12.2 (12.0-16.0) g/dL Hct 38.1 (36.0-48.0) % Plt Count 236 (150-450) 10^3/uL BMP 08/16/24 09:40 Sodium 141 Potassium 5.2 H Chloride 105 Carbon Dioxide 26.9 BUN 16.0 Creatinine 0.74 Glucose 99 Calcium 8.8 Liver Function 08/16/24 Range/Units 09:40 Total Bilirubin 0.5 (0.2-1.0) mg/dL AST 34 (15-37) U/L ALT 21 (14-59) U/L Alkaline Phosphatase 118 H (46-116) U/L Albumin 3.7 (3.4-5.0) g/dL Urine 08/16/24 Range/Units 10:55 Urine Color Lt. yellow (YELLOW) Urine Clarity Sl cloudy (CLEAR) Urine pH 7.5 (5.0-9.0) Ur Specific [place] 1.020 (1.005-1.025) Urine Protein Negative (NEG/TRACE) mg/dL Urine Glucose (UA) Negative (NEGATIVE) mg/dL Assessment and Plan Assessment and Plan (1) Acute dehydration: (2) UTI (urinary tract infection): (3) Hematuria: (4) Abdominal pain: (5) Uncontrolled hypertension: (6) Nausea & vomiting: Plan Admission findings: Sinus tachycardia, uncontrolled hypertension, hyperkalemia, acute UTI findings with failed outpatient treatment resulting in dehydration and increasing abdominal pain with recurrent nausea vomiting. She was treated as an outpatient for several days without success. Dehydration secondary to acute UTI likely pyelonephritis-no kidney stone on CT scan, IV antibiotics pain control, luevano cultures. Hyperkalemia likely secondary to the dehydration as outlined above-repeat lab in a.m., not elevated enough for emergency treatment Abdominal pain secondary to the acute pyelonephritis-so far i slightly improved with treatment started already. Continue with IV hydration overnight possible discharge in a.m. GERD-continue with home medications Neuropathy-continue with home medications Low back pain-hold off on tizanidine with current antibiotics for treatment as outlined above Admission status: Patient with failed outpatient treatment of pyelonephritis, dehydration with hyperkalemia, start patient is off as observation is of approximately 50% chance she could be discharged to home tomorrow thus spanning only 1 midnight
[2024-08-16 13:01] LABS: Amylase 50 U/L (25-115)
[2024-08-16 13:08] LABS: Lactate/Lactic Acid 0.9 mmol/L (0.4-2.0)
[2024-08-16] MEDS: LEVOFLOXACIN IN DEXTROSE 5 % 750 MG/150 ML PREMIX 100 MG IV (14:31)
[2024-08-16] MEDS: PANTOPRAZOLE SODIUM 40 MG VIAL IV (14:31)
[2024-08-16] MEDS: 0.9 % SODIUM CHLORIDE 1,000 ML 125 ML IV ×2 (14:31→21:25)
[2024-08-16] MEDS: HYOSCYAMINE SULFATE 0.125 MG TAB.SUBL SL (14:31)
[2024-08-16] MEDS: ACETAMINOPHEN 500 MG TABLET 1000 MG PO (16:08)
[2024-08-16] MEDS: AMITRIPTYLINE HCL 50 MG TABLET 100 MG PO (21:25)
[2024-08-16] MEDS: PREGABALIN 50 MG CAPSULE PO (21:25)
[2024-08-17] MEDS: HYDROCODONE/ACET 5-325 MG TABLET 1 TAB PO ×2 (00:39→10:03)
[2024-08-17] MEDS: HYDROMORPHONE HCL 0.5 MG/0.5 ML SYRINGE IV ×2 (01:20→05:47)
[2024-08-17 04:23] VITALS: O2SAT 99
[2024-08-17 04:30] VITALS: BP 129/83; PULSE 71; TEMP 36.3; O2SAT 98
[2024-08-17 05:14] LABS: Basophils Percent Auto 0.3 % (0.2-2.0); Eosinophils Absolute Auto 0.1 10^3/uL (0.0-0.7); Eosinophils Percent Auto 2.1 % (0.9-7.0); Hematocrit 32.8 % (36.0-48.0); Hemoglobin 10.4 g/dL (12.0-16.0); Lymphocytes Absolute Auto 1.7 10^3/uL (1.2-3.8); Lymphocytes Percent Auto 50.9 % (20.5-60.0); Mean Corpuscular HGB Conc 31.7 g/dL (29.9-35.2); Mean Corpuscular Volume 85.2 fL (81.0-99.0); Mean Platelet Volume 9.7 fL (9.5-13.5); Monocytes Absolute Auto 0.2 10^3/uL (0.3-0.8); Monocytes Percent Auto 6.4 % (1.7-12.0); Neutrophils Absolute Auto 1.3 10^3/uL (1.4-6.5); Neutrophils Percent Auto 40.3 % (43.0-75.0); Platelet Count 165 10^3/uL (150-450); Red Blood Count 3.85 10^6/uL (4.20-5.40); Red Cell Distribution Width 12.9 % (11.0-15.0); White Blood Count 3.3 10^3/uL (4.0-11.0)
[2024-08-17 05:19] LABS: Anion Gap 10.7; BUN Creatinine Ratio 13.7; Calcium 8.4 mg/dL (8.5-10.1); Carbon Dioxide 28.2 mmol/L (21.0-32.0); Chloride 107 mmol/L (98-107); Estimated GFR (African America >60 (>=60 mL/min/1.73m^2); Estimated GFR (Non-African Ame >60 (>=60 mL/min/1.73m^2); Glucose 85 mg/dL (74-106); Potassium 3.9 mmol/L (3.5-5.1); Sodium 142 mmol/L (136-145)
[2024-08-17] MEDS: ONDANSETRON PF 4 MG/2 ML VIAL IV ×2 (05:47→09:49)
[2024-08-17] MEDS: 0.9 % SODIUM CHLORIDE 1,000 ML 125 ML IV (05:49)
--- NOTE | 2024-08-17 07:33 | P.DS_ITS ---
DS: Providers Provider Date of admission: 08/16/24 13:23 Primary care physician: Yasir Ledesma MD Consults: 08/16/24 12:40 Consult to Pharmacy Routine Consulting Provider: Reason for consultation: Please [place] me when Med Rec is Updated Has provider been notified: No DS: Diagnosis Discharge Diagnosis (1) Acute dehydration: (2) UTI (urinary tract infection): (3) Hematuria: (4) Abdominal pain: (5) Uncontrolled hypertension: (6) Nausea & vomiting: Plan Admission findings: Sinus tachycardia, uncontrolled hypertension, hyperkalemia, acute UTI findings with failed outpatient treatment resulting in dehydration and increasing abdominal pain with recurrent nausea vomiting. She was treated as an outpatient for several days without success. Dehydration secondary to acute UTI likely pyelonephritis-improving at the time of discharge Hyperkalemia likely secondary to the dehydration as outlined above-repeat lab in a.m.,-resolved at the time of discharge Abdominal pain secondary to the acute pyelonephritis-improving but not resolved at the time of discharge GERD-continue with home medications Neuropathy-continue with home medications Low back pain-changing antibiotics so we will restart tizanidine at home Admission status: Patient with failed outpatient treatment of pyelonephritis, dehydration with hyperkalemia, start patient is off as observation is of approximately 50% chance she could be discharged to home tomorrow thus spanning only 1 midnight ? DS: Summary Hospital Course Hospital Course: Patient was seen and evaluated in the office, treated aggressively with out patient IV fluids and antibiotics. Her pain persisted. UA in ER showed consistent evaluation with her symptoms to be pyelonephritis. No kidney stone was noted on CT scan. Patient was treated overnight with IV fluids and IV antibiotics. She is somewhat improved this morning. She would like to try being discharged to home after her morning antibiotics. Follow-up with me in the office tomorrow depending on symptoms. Cultures from urine and bladder are still pending. Will change outpatient antibiotics. Medications see list. Follow-up with me in the office either tomorrow or Wednesday. That would be based on symptoms. Dehydration is improved at the time of discharge Status at Discharge Overall status at discharge: patient is not back to baseline Time Spent with Patient Time attestation: Total time spent providing and/or coordinating discharge services: Time spent: greater than 30 minutes Exam Constitutional Vital Signs, click to edit/add: Last Vital Signs Temp 97.4 F L 08/17/24 04:30 Pulse 71 08/17/24 04:30 Resp 18 08/17/24 04:30 BP 129/83 08/17/24 04:30 Pulse Ox 98 08/17/24 04:30 O2 Del Method Room Air 08/17/24 04:30 Documenting provider has reviewed patient's vital signs: yes Common normals: apparent distress (Mild painful distress especially with movement) Chest Common normals: inspection of chest normal Respiratory Common normals: normal respiratory effort, no retractions and no use of accessory muscles Cardio Common normals: regular rate and regular rhythm GI Common normals: Normal to inspection, nondistended, normoactive bowel sounds present and soft to palpation; tender Palpation: tender (Minimal in left lower quadrant, no rebound tenderness) DS: Data Data Completed and Pending Labs on day of discharge: Labs from last 24 hours 08/17/24 08/16/24 08/16/24 04:54 10:55 09:40 WBC 3.3 L 5.5 RBC 3.85 L 4.44 Hgb 10.4 L 12.2 Hct 32.8 L 38.1 MCV 85.2 85.8 MCH 27.0 27.5 MCHC 31.7 32.0 RDW 12.9 13.1 Plt Count 165 236 MPV 9.7 9.8 Neut % (Auto) 40.3 L 53.0 Lymph % (Auto) 50.9 38.7 Pope % (Auto) 6.4 6.4 Eos % (Auto) 2.1 1.3 Baso % (Auto) 0.3 0.4 Neut # (Auto) 1.3 L 2.9 Lymph # (Auto) 1.7 2.1 Pope # (Auto) 0.2 L 0.4 Eos # (Auto) 0.1 0.1 Baso # (Auto) 0.0 0.0 Abs Immat Gran (auto) 0.00 0.01 Imm/Tot Granulo (auto) 0.0 0.2 Sodium 142 141 Potassium 3.9 5.2 H Chloride 107 105 Carbon Dioxide 28.2 26.9 Anion Gap 10.7 14.3 BUN 10.0 16.0 Creatinine 0.73 0.74 Est GFR ( Amer) >60 >60 Est GFR (Non-Af Amer) >60 >60 BUN/Creatinine Ratio 13.7 21.6 Glucose 85 99 Lactate 0.9 Calcium 8.4 L 8.8 Magnesium 2.0 Total Bilirubin 0.5 AST 34 ALT 21 Alkaline Phosphatase 118 H Total Protein 7.6 Albumin 3.7 Globulin 3.9 Albumin/Globulin Ratio 0.9 Amylase 50 Lipase 66.0 Urine Color Lt. yellow Urine Clarity Sl cloudy Urine pH 7.5 Ur Specific [place] 1.020 Urine Protein Negative Urine Glucose (UA) Negative Urine Ketones Negative Urine Occult Blood Large A Urine Nitrite Negative Urine Bilirubin Negative Urine Urobilinogen 1.0 Ur Leukocyte Esterase Large A Urine RBC 20-50 A Urine WBC 10-20 A Ur Squamous Epith Cells Few A Urine Crystals None seen Urine Bacteria Small A Urine Casts None seen Urine Mucus None seen Ur Culture Indicated? Yes Discharge Plan Discharge Disposition: Home, Self-Care Condition: Fair Discharge Medications: New cefdinir 300 mg capsule 600 mg PO DAILY Qty: 20 0RF Continued cyanocobalamin (vitamin B-12) 1,000 mcg/mL solution 1,000 mcg IM .monthly tizanidine 4 mg tablet 8 mg PO BEDTIME hydrocodone-acetaminophen 5-325 mg tablet 1 tab PO Q8H PRN (Reason: pain) pantoprazole 40 mg tablet,delayed release (DR/EC) 40 mg PO BID amitriptyline 100 mg tablet 100 mg PO .QHS pregabalin 50 mg capsule 50 mg PO BID promethazine 25 mg tablet 25 mg PO Q12H PRN (Reason: nausea and vomiting) metronidazole 500 mg tablet 500 mg PO TID Rx Instructions: 08/09/24-08/18/24 multivitamin Tablet 1 tab PO DAILY calcium carbonate 600 mg calcium (1,500 mg) tablet 1,200 mg PO DAILY Discontinued ciprofloxacin HCl 500 mg tablet 500 mg PO BID Rx Instructions: 08/09/24-08/18/24 Print Language: Portuguese Forms: Portal Instructions
[2024-08-17 08:00] VITALS: BP 136/96; PULSE 82; TEMP 36.1; O2SAT 100; O2SAT 99
[2024-08-17] MEDS: CEFTRIAXONE 1,000 MG in 0.9 % SODIUM CHLORIDE 50 ML 100 MG IV (09:49)
[2024-08-17] MEDS: CALCIUM CARBONATE 600 MG TABLET 1200 MG PO (10:01)
[2024-08-17] MEDS: PREGABALIN 50 MG CAPSULE PO (10:02)
[2024-08-17] MEDS: MULTIVITAMIN TABLET 1 TAB PO (10:02)
[2024-08-17 11:37] VITALS: BP 143/102; PULSE 81; TEMP 36.5; O2SAT 98
--- NOTE | 2024-08-18 13:00 | CM.DCFOLLOWU ---
Person spoke with: Elvi How are you feeling? Still having nausea/vomiting went to see Dr. Ledesma today How is your pain? still having pain Did you understand your discharge instructions? Yes Do you have any questions about your discharge instructions? No Were you given any prescriptions at discharge? Yes Were you able to get your prescriptions filled? Yes and he also gave me something for nausea today but said I might have to come back to hospital Do you understand how to take your medications as ordered? Yes Do you have any questions about your follow up appointment and do you plan to keep your follow up appointment? No went to see Dr. Ledesma today Is there anything else that you would like to discuss? No Questions/Comments/Concerns/Other:
== END 2024-08-17 11:42 | disposition home or self-care (01) ==
LOC: ER 13:17 → MS 13:24
PROVIDERS: Admitting Provider Family Medicine; Emergency Provider Emergency Medicine; PCP Family Medicine; Visit Provider Family Medicine
DX: N10 Acute pyelonephritis (principal); R00.0 Tachycardia, unspecified; I10 Essential (primary) hypertension; E87.5 Hyperkalemia; E86.0 Dehydration; R31.9 Hematuria, unspecified; R10.9 Unspecified abdominal pain; R11.2 Nausea with vomiting, unspecified; K21.9 Gastro-esophageal reflux disease without esophagitis; G62.9 Polyneuropathy, unspecified; M54.50 Low back pain, unspecified; Z87.891 Personal history of nicotine dependence
CPT/HCPCS: 36415; 74176; 80048; 80053; 81001; 82150; 83605; 83690; 83735; 85025; 87040; 87086; 94761; 96361; 96365; 96366; 96367; 96375; 96376; 99285; G0378; J0696; J1171; J2270; J2405

== ENCOUNTER 2024-08-31 15:32 | Emergency (ER) | payer OTHER, SELFPAY ==
[2024-08-31 15:37] VITALS: BP 157/103; PULSE 85; TEMP 37.2; O2SAT 99; BMI 26.6
--- NOTE | 2024-08-31 16:05 | ED.ABDPAIN1 ---
HPI - Abdominal Pain General Chief Complaint: Abdominal Pain Stated Complaint: ABDOMINAL PAIN/VOMITTING Time Seen by Provider: 08/31/24 15:36 Source: patient Mode of arrival: walk-in Limitations: no limitations History of Present Illness HPI narrative: 43-year-old female presents here with chief complaint of abdominal pain. Patient has a history of chronic abdominal pain history of diverticulitis and UTIs. Patient was seen by Dr. Ledesma earlier today given a shot of Phenergan for nausea vomiting. Patient was told to come to emergency room symptoms of not improved. Patient presenting here with chief complaint of abdominal cramping. Denies any fevers. States she has had multiple episodes of vomiting. Patient's abdomen is nontender to palpation. Related Data Home Medications ?Medication ?Instructions ?Recorded ?Confirmed cyanocobalamin (vitamin B-12) 1,000 mcg IM .monthly 08/11/23 08/16/24 1,000 mcg/mL injection solution hydrocodone 5 mg-acetaminophen 325 1 tab PO Q8H PRN pain 08/11/23 08/16/24 mg tablet tizanidine 4 mg tablet 8 mg PO BEDTIME 08/11/23 08/16/24 pantoprazole 40 mg tablet,delayed 40 mg PO BID 09/13/23 07/06/24 release calcium carbonate 1,200 mg PO DAILY 03/17/24 08/16/24 multivitamin 1 tab PO DAILY 03/17/24 08/16/24 amitriptyline 100 mg tablet 100 mg PO .QHS 03/22/24 08/16/24 metronidazole 500 mg tablet 500 mg PO TID 08/16/24 08/16/24 pregabalin 50 mg capsule 50 mg PO BID 08/16/24 08/16/24 promethazine 25 mg tablet 25 mg PO Q12H PRN nausea and 08/16/24 08/16/24 vomiting Previous Rx's ?Medication ?Instructions ?Recorded cefdinir 300 mg capsule 600 mg (2 x 300 mg) PO DAILY #20 08/17/24 caps Allergies Allergy/AdvReac Type Severity Reaction Status Date / Time ketorolac (From Toradol) Allergy Intermediate Rash Verified 08/31/24 15:41 meperidine (From Demerol) Allergy Intermediate Rash Verified 08/31/24 15:41 prochlorperazine (From Allergy Intermediate hallucinati Verified 08/31/24 15:41 Compazine) ons Review of Systems ROS Narrative All Systems are negative except as noted/marked.All systems reviewed and otherwise negative PFSH PFSH Medical History (Updated 08/31/24 @ 17:45 by Yvette Kelly) Acute dehydration ?E86.0 - Dehydration (ICD-10) UTI (urinary tract infection) ?N39.0 - Urinary tract infection, site not specified (ICD-10) Hematuria ?R31.9 - Hematuria, unspecified (ICD-10) Abdominal pain ?R10.9 - Unspecified abdominal pain (ICD-10) 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 (ICD-10) Colitis ?K52.9 - Noninfective gastroenteritis and colitis, unspecified (ICD-10) Flank pain ?R10.9 - Unspecified abdominal pain (ICD-10) Uncontrolled hypertension ?I10 - Essential (primary) hypertension (ICD-10) Nausea & vomiting ?R11.2 - Nausea with vomiting, unspecified (ICD-10) Right flank pain ?R10.9 - Unspecified abdominal pain (ICD-10) Nausea & vomiting ?R11.2 - Nausea with vomiting, unspecified (ICD-10) Mass of right parotid gland ?K11.8 - Other diseases of salivary glands (ICD-10) Migraines ?G43.909 - Migraine, unspecified, not intractable, without status migrainosus (ICD-10) Anxiety ?F41.9 - Anxiety disorder, unspecified (ICD-10) Depression ?F32.A - Depression, unspecified (ICD-10) Stomach ulcer ?K25.9 - Gastric ulcer, unspecified as acute or chronic, without hemorrhage or perforation (ICD-10) Pancreatitis ?K85.90 - Acute pancreatitis without necrosis or infection, unspecified (ICD-10) Kidney stone ?N20.0 - Calculus of kidney (ICD-10) Surgical History (Updated 03/22/24 @ 10:21 by Gin Machado) History of fine needle aspiration with imaging guidance ?Z98.890 - Other specified postprocedural states (ICD-10) Hx laparoscopic cholecystectomy ?Z90.49 - Acquired absence of other specified parts of digestive tract (ICD-10) History of lumpectomy of right breast ?Z98.890 - Other specified postprocedural states (ICD-10) History of placement of ear tubes ?Z96.22 - Myringotomy tube(s) status (ICD-10) S/P insertion of spinal cord stimulator ?Z96.89 - Presence of other specified functional implants (ICD-10) History of knee replacement procedure of left knee ?Z96.652 - Presence of left artificial knee joint (ICD-10) Gastric bypass status for obesity ?Z98.84 - Bariatric surgery status (ICD-10) H/O: hysterectomy ?Z90.710 - Acquired absence of both cervix and uterus (ICD-10) Hx of appendectomy ?Z90.49 - Acquired absence of other specified parts of digestive tract (ICD-10) Family History (Updated 08/11/23 @ 10:31 by Josie Pantoja) Grandfather Family history of COPD (chronic obstructive pulmonary disease) Father Family history of cancer Family history of diabetes mellitus Family history of hypertension Family history of stroke Sister Family history of cancer Family history of diabetes mellitus Grandmother Family history of diabetes mellitus Family history of hypertension Social History Within the past year, how often did you have a drink containing alcohol: never Within the past year, how many standard drinks containing alcohol did you have on a typical day: 1 or 2 Within the past year, how often did you have six or more drinks on one occasion: never Total score: 0 Score interpretation: A score less than 3 is consistent with normal alcohol consumption. Smoking status: Former smoker Second hand tobacco smoke exposure: No Non-prescribed substance use: denies use Previous occupational history: [employer] Known occupational exposures/hazards: No Highest level of school completed/degree received: some college, no degree Are you now , , , , never or living with a partner: In a typical week, how many times do you talk on the telephone with family, friends, or neighbors: 3 or more times per week How often do you get together with friends or relatives: 3 or more times per week How often do you attend samaritan or pentecostal services: 4 or more times per year Do you belong to any clubs or organizations such as samaritan groups unions, fraternal or athletic groups, or school groups: no Total score: 3 Score interpretation: A score of greater than or equal to 2 indicates the lowest level of social isolation. Little interest or pleasure in doing things: not at all Feeling down, depressed, or hopeless: not at all Feel stressed/tense/nervous/anxious/difficulty sleeping: not at all Do you think of yourself as: straight/heterosexual Gender Identity: female Exam Narrative Exam Narrative: All Systems are negative except as noted/marked.All systems reviewed and otherwise negative Nurses note and vital signs reviewed and patient is not hypoxic. General: The patient appears well and in no apparent distress. Patient is resting comfortably on cart. Skin: Warm, dry, no pallor noted. There is no rash noted. Head: Normocephalic, atraumatic Eye: Normal conjunctiva, no drainage, EOMI. PERRL Ears, Nose, Mouth, and Throat: oral mucosa is moist. Nares patent. Mouth without vesicles. Ear canals patent. Tm's without Erythema Cardiovascular: Regular Rate and Rhythm Respiratory: Patient is in no distress, no accessory muscle use, lungs are clear to auscultation, no wheezing, rales or rhonchi Back: non-tender, no CVA tenderness bilaterally to percussion. GI: Normal bowel sounds, no tenderness to palpation, no masses appreciated. No rebound, guarding, or rigidity noted. Musculoskeletal: The patient has no evidence of calf tenderness, no pitting edema, symmetrical pulses noted bilaterally Neurological: A&O x4, normal speech Psychiatric: Cooperative Constitutional Vital Signs, click to edit/add: Last Vital Signs Temp 99 F 08/31/24 15:37 Pulse 80 08/31/24 17:19 Resp 16 08/31/24 17:19 BP 144/102 H 08/31/24 17:19 Pulse Ox 97 08/31/24 17:19 O2 Del Method Room Air 08/31/24 17:19 Course Vital Signs Vital signs: Vital Signs Temperature 99 F 08/31/24 15:37 Pulse Rate 85 08/31/24 15:37 Respiratory Rate 16 08/31/24 15:37 Blood Pressure 157/103 H 08/31/24 15:37 Pulse Oximetry 99 08/31/24 15:37 Oxygen Delivery Method Room Air 08/31/24 15:37 Temperature 99 F 08/31/24 15:37 Pulse Rate 80 08/31/24 17:19 Respiratory Rate 16 08/31/24 17:19 Blood Pressure 144/102 H 08/31/24 17:19 Pulse Oximetry 97 08/31/24 17:19 Oxygen Delivery Method Room Air 08/31/24 17:19 MDM - Abdominal Pain MDM Narrative Medical decision making narrative: Patient presented to the emergency room chief complaint of abdominal pain. Patient was seen in the emergency room multiple times and had multiple CT scans. CT scan was repeated today and she states she has had increased vomiting and pain. Bowel sounds are active. CT scan read by radiology as constipation and possible fecal impaction. Patient states she has had multiple bowel movements. She does take Bentyl. Patient was given Zofran fluids and morphine here in the emergency room. She was also given IM injection of Bentyl. Patient states she would like to go home as her ride is unable to take her home after 7 PM. She feels comfortable going home at this time. Patient discharged home with diagnosis of constipation. Patient agrees with plan of care. Differential Diagnosis Differential diagnosis: Likely abdominal pain, calculus of kidney, constipation and diverticulitis Medical Records Attestation: I reviewed the patient's medical records. Lab Data Attestation: I reviewed the patient's lab results. Labs: Lab Results 08/31/24 08/31/24 Range/Units 15:54 15:56 WBC 5.8 (4.0-11.0) 10^3/uL RBC 4.26 (4.20-5.40) 10^6/uL Hgb 11.7 L (12.0-16.0) g/dL Hct 35.8 L (36.0-48.0) % MCV 84.0 (81.0-99.0) fL MCH 27.5 (26.7-34.0) pg MCHC 32.7 (29.9-35.2) g/dL RDW 13.2 (11.0-15.0) % Plt Count 249 (150-450) 10^3/uL MPV 10.1 (9.5-13.5) fL Neut % (Auto) 57.6 (43.0-75.0) % Lymph % (Auto) 35.6 (20.5-60.0) % [place] % (Auto) 5.9 (1.7-12.0) % Eos % (Auto) 0.5 L (0.9-7.0) % Baso % (Auto) 0.2 (0.2-2.0) % Neut # (Auto) 3.4 (1.4-6.5) 10^3/uL Lymph # (Auto) 2.1 (1.2-3.8) 10^3/uL [place] # (Auto) 0.3 (0.3-0.8) 10^3/uL Eos # (Auto) 0.0 (0.0-0.7) 10^3/uL Baso # (Auto) 0.0 (0.0-0.1) 10^3/uL Abs Immat Gran (auto) 0.01 (0.00-0.03) 10^3/uL Imm/Tot Granulo (auto) 0.2 (0.0-0.5) % Sodium 141 (136-145) mmol/L Potassium 4.4 (3.5-5.1) mmol/L Chloride 103 (98-107) mmol/L Carbon Dioxide 27.8 (21.0-32.0) mmol/L Anion Gap 14.6 BUN 15.0 (7.0-18.0) mg/dL Creatinine 0.81 (0.55-1.02) mg/dL Est GFR ( Amer) >60 (>=60 mL/min/1.73m^2) Est GFR (Non-Af Amer) >60 (>=60 mL/min/1.73m^2) BUN/Creatinine Ratio 18.5 Glucose 89 (74-106) mg/dL Calcium 9.3 (8.5-10.1) mg/dL Total Bilirubin 0.5 (0.2-1.0) mg/dL AST 22 (15-37) U/L ALT 22 (14-59) U/L Alkaline Phosphatase 111 (46-116) U/L Total Protein 7.7 (6.4-8.2) g/dL Albumin 3.8 (3.4-5.0) g/dL Globulin 3.9 g/dL Albumin/Globulin Ratio 1.0 Lipase 58.0 (16.0-77.0) U/L Urine Color Yellow (YELLOW) Urine Clarity Clear (CLEAR) Urine pH 6.0 (5.0-9.0) Ur Specific [place] 1.025 (1.005-1.025) Urine Protein Negative (NEG/TRACE) mg/dL Urine Glucose (UA) Negative (NEGATIVE) mg/dL Urine Ketones Negative (NEGATIVE) mg/dL Urine Occult Blood Large A (NEGATIVE) Urine Nitrite Negative (NEGATIVE) Urine Bilirubin Negative (NEGATIVE) Urine Urobilinogen 1.0 (0.2-1.0) EU/dL Ur Leukocyte Esterase Trace A (NEGATIVE) Urine RBC 50-75 A (0-2) #/HPF Urine WBC 0-2 A (NONE SEEN) #/HPF Ur Squamous Epith Cells Rare (NONE/RARE) #/LPF Urine Crystals None seen (None Seen) #/HPF Urine Bacteria Trace A (NONE SEEN) #/HPF Urine Casts None seen (NONE SEEN) #/LPF Urine Mucus None seen (NONE SEEN) Ur Culture Indicated? No Imaging Data CT scan - abdomen: Radiologist's impression: ITS Impressions Abdomen/Pelvis CT 08/31/24 16:20 IMPRESSION: 1. No acute abnormalities in the abdomen or pelvis. 2. Prominent rectal fecal loading may indicate constipation or impaction, correlate clinically. Electronically authenticated by: PEGGY MALDONADO Date: 08/31/2024 17:17 Discharge Plan Discharge Chief Complaint: Abdominal Pain Clinical Impression: Constipation Patient Disposition: Home, Self-Care Time of Disposition Decision: 17:45 Condition: Good Prescriptions / Home Meds: No Action cyanocobalamin (vitamin B-12) 1,000 mcg/mL solution 1,000 mcg IM .monthly tizanidine 4 mg tablet 8 mg PO BEDTIME hydrocodone-acetaminophen 5-325 mg tablet 1 tab PO Q8H PRN (Reason: pain) pantoprazole 40 mg tablet,delayed release (DR/EC) 40 mg PO BID amitriptyline 100 mg tablet 100 mg PO .QHS pregabalin 50 mg capsule 50 mg PO BID promethazine 25 mg tablet 25 mg PO Q12H PRN (Reason: nausea and vomiting) metronidazole 500 mg tablet 500 mg PO TID Rx Instructions: 08/09/24-08/18/24 cefdinir 300 mg capsule 600 mg PO DAILY Qty: 20 0RF multivitamin Tablet 1 tab PO DAILY calcium carbonate 600 mg calcium (1,500 mg) tablet 1,200 mg PO DAILY Print Language: Thai Instructions: Constipation (ED) Referrals: Yasir Ledesma MD [Primary Care Provider] - 1 week
[2024-08-31 16:14] LABS: Basophils Percent Auto 0.2 % (0.2-2.0); Eosinophils Percent Auto 0.5 % (0.9-7.0); Hematocrit 35.8 % (36.0-48.0); Hemoglobin 11.7 g/dL (12.0-16.0); Immature Granulocytes Abs Auto 0.01 10^3/uL (0.00-0.03); Immature Granulocytes Pct Auto 0.2 % (0.0-0.5); Lymphocytes Absolute Auto 2.1 10^3/uL (1.2-3.8); Lymphocytes Percent Auto 35.6 % (20.5-60.0); Mean Corpuscular HGB Conc 32.7 g/dL (29.9-35.2); Mean Corpuscular Hemoglobin 27.5 pg (26.7-34.0); Mean Platelet Volume 10.1 fL (9.5-13.5); Monocytes Absolute Auto 0.3 10^3/uL (0.3-0.8); Monocytes Percent Auto 5.9 % (1.7-12.0); Neutrophils Absolute Auto 3.4 10^3/uL (1.4-6.5); Neutrophils Percent Auto 57.6 % (43.0-75.0); Platelet Count 249 10^3/uL (150-450); Red Blood Count 4.26 10^6/uL (4.20-5.40); Red Cell Distribution Width 13.2 % (11.0-15.0); White Blood Count 5.8 10^3/uL (4.0-11.0)
[2024-08-31 16:15] LABS: Bilirubin Urine NEGATIVE (NEGATIVE); Blood Urine LARGE (NEGATIVE); Clarity Urine CLEAR (CLEAR); Color Urine YELLOW (YELLOW); Glucose Urine UA NEGATIVE (NEGATIVE); Ketones Urine NEGATIVE (NEGATIVE); Leukocyte Esterase Urine TRACE (NEGATIVE); Nitrite Urine NEGATIVE (NEGATIVE); Protein Urine NEGATIVE (NEG/TRACE); Specific Gravity Urine 1.025 (1.005-1.025)
--- NOTE | 2024-08-31 16:20 | CT_ITS ---
The [address] [address] Patient Name: KRISTINE MADDEN MRN: [id number] date: 1980 Sex: F Assigned Patient Location: ER Current Patient Location: ER Accession/Order Number: [id number] Exam Date: 08/31/2024 16:30 Report Date: 08/31/2024 17:17 At the request of: ED RUBIO Procedure: CT abdomen pelvis wo con EXAM: CT scan of the abdomen and pelvis without contrast. Dose reduction technique used: Automated exposure control and/or adjustment of the mA and/or kV according to patient size and/or use of iterative reconstruction technique. REASON FOR EXAM: left flank pain, hematuria COMPARISON: CT scan dated 08/16/2024 FINDINGS: Prominent rectal fecal loading. Gastric bypass cholecystectomy. Hysterectomy. Lumbar neurostimulators. No renal, ureteral or bladder calculi. No hydronephrosis. No evidence of appendicitis. No free fluid in the abdomen or pelvis. No free intraperitoneal air. No dilated or thickened loops of small bowel or colon. Liver, pancreas, spleen, bilateral kidneys, and bilateral adrenal glands are otherwise unremarkable within the limitations of noncontrast CT. No lymphadenopathy in the abdomen or pelvis. Remainder unremarkable. CT/CT abdomen pelvis wo con IMPRESSION: 1. No acute abnormalities in the abdomen or pelvis. 2. Prominent rectal fecal loading may indicate constipation or impaction, correlate clinically. Electronically authenticated by: PEGGY MALDONADO Date: 08/31/2024 17:17
[2024-08-31 16:23] LABS: Bacteria Urine TRACE #/HPF (NONE SEEN); Cast Seen? NONE SEEN #/LPF (NONE SEEN); Crystals Seen? None Seen #/HPF (None Seen); Mucus Urine NONE SEEN (NONE SEEN); RBC Urine 50-75 #/HPF (0-2); Squamous Epithelial Cell Urine RARE #/LPF (NONE/RARE); Urine Culture Indicated NO; WBC Urine 0-2 #/HPF (NONE SEEN)
[2024-08-31 16:28] LABS: Alanine Aminotransferase 22 U/L (14-59); Albumin Level 3.8 g/dL (3.4-5.0); Alkaline Phosphatase 111 U/L (46-116); Anion Gap 14.6; Aspartate Amino Transferase 22 U/L (15-37); BUN Creatinine Ratio 18.5; Bilirubin Total 0.5 mg/dL (0.2-1.0); Calcium 9.3 mg/dL (8.5-10.1); Carbon Dioxide 27.8 mmol/L (21.0-32.0); Chloride 103 mmol/L (98-107); Estimated GFR (African America >60 (>=60 mL/min/1.73m^2); Estimated GFR (Non-African Ame >60 (>=60 mL/min/1.73m^2); Globulin 3.9 g/dL; Glucose 89 mg/dL (74-106); Potassium 4.4 mmol/L (3.5-5.1); Sodium 141 mmol/L (136-145); Total Protein 7.7 g/dL (6.4-8.2)
[2024-08-31] MEDS: 0.9 % SODIUM CHLORIDE 1,000 ML 999 ML IV (16:35)
[2024-08-31] MEDS: ONDANSETRON PF 4 MG/2 ML VIAL IV (16:36)
[2024-08-31] MEDS: MORPHINE SULFATE 2 MG/ML SYRINGE IV (17:03)
[2024-08-31 17:19] VITALS: BP 144/102; PULSE 80; O2SAT 97
[2024-08-31] MEDS: DICYCLOMINE HCL 20 MG/2 ML VIAL IM (17:42)
[2024-08-31 17:52] VITALS: BP 141/98; PULSE 75; O2SAT 98
== END 2024-08-31 17:52 | disposition home or self-care (01) ==
PROVIDERS: Physician Assistant; Emergency Provider Emergency Medicine; PCP Family Medicine
DX: K59.00 Constipation, unspecified (principal); Z87.440 Personal history of urinary (tract) infections; Z90.49 Acquired absence of other specified parts of digestive tract; Z96.652 Presence of left artificial knee joint; Z98.84 Bariatric surgery status; Z90.710 Acquired absence of both cervix and uterus; Z87.891 Personal history of nicotine dependence
CPT/HCPCS: 36415; 74176; 80053; 81001; 83690; 85025; 96361; 96372; 96374; 96375; 99284; J0500; J2270; J2405

== ENCOUNTER 2024-09-28 00:50 | Emergency (ER) | payer OTHER, SELFPAY ==
[2024-09-28 00:53] VITALS: BP 166/120; PULSE 103; TEMP 36.7; O2SAT 100; BMI 26.6
--- OUTSIDE RECORDS SUMMARY | 2024-09-28 01:03 | XMS_ITS | CCD ---
Author Organization [facility] Care Team Providers Care Button Machine Operator Name Role Phone TAMEZ, ZHANE W Unavailable Unavailable Hoy, Arleth Martinez Unavailable Unavailable TAMEZ, ZHANE W Unavailable Unavailable Hoy, Arleth Martinez Unavailable Unavailable TAMEZ, ZHANE W Unavailable Unavailable Hoy, Arleth Martinez Unavailable Unavailable TAMEZ, ZHANE W Unavailable Unavailable Hoy, Arelth Martinez Unavailable Unavailable TAMEZ, ZHANE W Unavailable [...] Physician ROSS ., DR ORTIZ Consulting Unavailable [facility] Primary Care Unavailable HAWKINS ., [...] ORTIZ Attending Unavailable JORDEN ECHOLS Consulting Unavailable LURDSE, MARAH Consulting Unavailable MD Arleth Acharya Primary Care Provider [phone] MD Arleth Acharya Referring Provider DO Calderón Attending Provider MD Arleth Acharya Primary Care Provider [phone] OD Antonio Attending Provider Diana HAWKINS Attending Unavailable Diana HAWKINS R Attending Unavailable Diana HAWKINS R Attending Unavailable Hoy, Arleth Referring Unavailable ELIZABETH VACA Attending Unavailable Diana HAWKINS Admitting Unavailable Diana HAWKINS Attending Unavailable Diana HAWKINS Referring Unavailable Diana HAWKINS Attending Unavailable MD Carissa Pettit V Attending Provider [phone] Carissa Pettit V Attending Unavailable Carissa Pettit V Admitting Unavailable Rianna Antonio Attending Unavailable Rianna Antonio Admitting Unavailable Hoy, Arleth M Primary Care Unavailable Osiris Calderón Attending Unavail able Osiris Calderón Admitting Unavail able Hoy, Arleth M Referring Unavailable Hoy, Arleth M Primary Care Unavailable DAISY BROWN Referring Unavailable HOY, ARLETH M Primary Care Unavailable DAISY BROWN Attending Unavailable DAISY BROWN Admitting Unavailable HOY, ARLETH M Primary Care Unavailable HOY, ARLETH M Primary Care Unavailable NETO CONNELL Attending Unav ailable KO, NETO VERDUZCO Attending Unav ailable KONETO Referring Unav ailable HOY, ARLETH M Primary Care Unavailable DIANA HAWKINS Referring Unavailable HOY, ARLETH M Primary Care Unavailable HOY, ARLETH M Referring Unavailable HOY, ARLETH M Primary Care Unavailable HOY, ARLETH M Primary Care Unavailable BRYAN HANKS Attending Unavailable HOY, ARLETH M Primary Care Unavailable IFRAH, CARISSA Attending Unavailable HOY, ARLETH M Primary Care Unavailable ADRI FRANK Attending Unavailable RG, CARISSA Attending Unavailable RGCARISSA Referring Unavailable HOY, ARLETH M Primary Care Unavailable IFRAH, CARISSA Attending Unavailable RG, CARISSA Referring Unavailable HOY, ARLETH M Primary Care Unavailable ASIA SPENCER Referring Unavailable HOY, ARLETH M Primary Care Unavailable ASIA SPENCER Referring Unavailable HOY, ARLETH M Primary Care Unavailable LATONYA BRYAN Attending Unavailable LATONYA, BRYAN Referring Unavailable HORusty, ARLETH M Primary Care Unavailable PATRIZIA, ARLETH M Primary Care Unavailable SHERYL ESPINOZA Attending Unavailable RUKHSANA MILLER Attending Unavailable MONIQUE BURKETT Attending Unavailable CURLY MORALES Attending Unavailable ANGELA, RUKHSANA Attending Unavailable NAGELA, RUKHSANA Attending Unavailable ANGELA, RUKHSANA Attending Unavailable KHRIS BUCHANAN Referring Unavailable KHRIS BUCHANAN Referring Unavailable KHRIS BUCHANAN Attending Unavailable Allergies Allergy Classification Reported Allergen(s) Allergy Type Date of Onset Reaction(s) Facility NSAIDs (1 source) Ketorolac; Translations: [ketorolac] Drug Allergy Unknown (qualifier value) [facility] Opioid Agonists (1 source) Meperidine; Translations: [meperidine] Drug Allergy [facility] Prochlorperazine (1 source) Prochlorperazi ne; Translations: [prochlorperaz ine] Drug Allergy Hallucinations (finding) [facility] (8 sources) ketorolac; Translations: [Toradol] Drug Allergy 05-29-20 15 Unknown (qualifier value) [facility] Repository (6 sources) meperidine; Translations: [Demerol HCl] Drug Allergy [facility] Repository (2 sources) Meperidine Drug Allergy 08-01-[address] [facility] Repository (1 source) Desonide Drug Allergy [facility] Repository (6 sources) Ketorolac; Translations: [ketorolac] Drug Allergy 11-22-19 22 Unknown Reaction [facility] (7 sources) Meperidine; Translations: [meperidine] Drug Allergy 08-01-20 13 Unknown Reaction [facility] (5 sources) Prochlorperazi ne; Translations: [prochlorperaz ine] Drug Allergy 02-12-20 23 Hallucinations (finding) [facility] (1 source) No Known Medication Allergies; Translations: [No Known Medication Allergies] Propensity to adverse reactions (disorder) [facility] Repository (1 source) Desonide; Translations: [DESONIDE] Drug Allergy 01-09-20 [facility] Repository (1 source) Ketorolac; Translations: [KETOROLAC TROMETHAMINE] Drug Allergy 04-09-20 [facility] Repository Medications Current Medications Medication Drug Class(es) Dates Sig (Normalized) Sig (Original) acetaminophen 325 mg / HYDROcodone bitartrate 5 mg oral tablet (7 sources) Opioid Agonist Start: 09-24-2023 [place] 325 mg-5 mg oral tablet 1 tab(s), Oral, q12hr for pain, 20 tab(s), Refill(s) 0, 1 to 2 tabs every 4 to 6 hours as needed for pain, Pain, [facility] #[id number], 167, cm, 09/13/23 12:07:00 EST, Height/Length Dosing, 70.5, kg, 09/13/23 12:07:00 EST, Weight Dosing Start Date: 09/24/23 Status: Ordered Start: 05-27-2023 take 1 tablet by mary th twice daily Hydrocodone-Acetaminophen Active 1 TAB P O Twice daily May 27, 2023 12:00am Start: 07-27-2022 [place] 325 mg-5 mg oral tablet 1 tab(s), Oral, BID Pain 8-10, 20 tab(s), Refill(s) 0, [facility] #[id number], 167, cm, 06/29/22 9:28:00 EDT, Height/Length Dosing, 69, kg, 06/29/22 9:28:00 EDT, Weight Dosing Start Date: 07/27/22 Status: Ordered Start: 06-29-2022 take 1 tablet by mayr th every six hours [place] 325 mg-5 mg oral tablet tab(s), Or al, q6hr, Refill(s) 0 Start Date: 06/29/22 Status: Ordered Air Cast (3 sources) Start: 01-06-2024 Air Cast Active 0 .Route 1 January 06, 2024 12:00am As directed amitriptyline hydrochloride 50 mg oral tablet (9 sources) Tricyclic Antidepressant Start: 05-27-2023 take 50 [...] mg / cholecalciferol 200 unt oral tablet (4 sources) Vitamin D Start: 05-27-2023 take 1 [...] q12hr, # 20 cap(s), Refills(s) 0, Pharmacy: [facility] #[id number], 167, cm, 09/13/23 12:07:00 EST, Height/Length Dosing, 70.5, kg, 09/13/23 12:07:00 EST, Weight Dosing Start Date: 10/06/23 Status: Ordered citalopram 40 mg oral tablet (2 sources) Serotonin Reuptake Inhibitor Start: 10-23-2014 take 40 mg by mouth once daily Celexa 40 mg, Oral, Daily, Refills(s) 0, Depression Start Date: 10/23/14 Status: Ordered gabapentin 300 mg oral capsule (4 sources) Anti-epileptic Agent Start: 03-07-2024 take 1 capsule by mouth once daily gabapentin 300 mg Cap 300 mg = 1 cap(s), Oral, Daily, Refills(s) 0 Start Date: 03/07/24 Status: Ordered Start: 01-06-2024 Gabapentin Act zohaib MG PO January 06, 2024 12:00am metoclopramide 10 mg oral tablet (4 sources) Dopamine-2 Receptor Antagonist Start: 05-27-2023 Metoclopramide Hcl (Reglan) 10 mg Tablet Active 10 MG PO As Directed May 27, 2023 12:00am Multivitamin (Multiple Vitamin) Tablet (4 sources) Start: 05-27-2023 take 1 tablet by [...] pantoprazole 40 mg delayed release oral tablet (9 sources) Proton Pump Inhibitor Start: 05-27-2023 take 1 tablet by mouth once daily Pantoprazole (Protonix) 40 mg Tablet,Delayed Release (Dr/Ec) Active 40 MG PO Daily May 27, 2023 12:00am Start: 10-23-2014 take 40 mg by mouth once daily pantoprazole 40 mg, Oral, Daily, Refills(s) 0, Control of stomach acid Start Date: 10/23/14 Status: Ordered promethazine hydrochloride 25 mg oral tablet (9 sources) Phenothiazine Start: 05-27-2023 take 25 mg by mouth every four to six hours Promethazine Active 25 MG PO EVERY 4-6 HOURS May 27, 2023 12:00am Start: 06-29-2022 take 1 mg rectal rou te every six hours promethazine 25 mg Supp mg supp, Rectal, q6hr, Refills(s) 0 Start Date: 06/29/22 Status: Ordered sucralfate 1000 mg oral tablet (4 sources) Aluminum Complex Start: 05-27-2023 take 1 [...] Status: Ordered tiZANidine 4 mg oral tablet (9 sources) Central alpha-2 Adrenergic Agonist Start: 05-27-2023 take 8 mg by mouth once daily at bedtime Tizanidine Active 8 MG PO Daily at bedtime May 27, 2023 12:00am Start: 06-29-2022 take 1 mg by mouth t hree times daily Zanaflex 4 mg oral capsule mg cap(s), Oral, TID, Refills(s) 0 Start Date: 06/29/22 Status: Ordered topiramate 50 mg oral tablet (3 sources) Start: 01-06-2024 Topiramate Act zohaib MG PO January 06, 2024 12:00am vitamin b12 1 mg/ml injectable solution (9 sources) Vitamin B12 Start: 05-27-2023 inject 1000 ug by intramuscular injection every 30 days Cyanocobalamin (Vitamin B-12) Active 1000 MCG IM Q30D May 27, 2023 12:00am Start: 06-29-2022 Vitamin B12 Re fills(s) 0 Start Date: 06/29/22 Status: Ordered Completed/Discontinued Medications Medication Drug Class(es) Dates Sig (Normalized) Sig (Original) ferrous sulfate 325 mg oral tablet (4 sources) Start: 05-27-2023 End: 05-28-2023 take 325 mg by mouth once daily Ferrous Sulfate Discontinued 325 MG PO Daily May 27, 2023 12:00am May 28, 2023 11:26am hyoscyamine sulfate 0.125 mg sublingual tablet (4 sources) Start: 05-27-2023 End: 05-28-2023 take 0.125 mg under the tongue every six hours Hyoscyamine Sulfate Discontinued 0.125 MG SUBLINGUAL Q6H May 27, 2023 12:00am May 28, 2023 11:06am Problems Active Problems Problem Classification Problem Date Documented Da te Episodic/Chronic Anxiety disorders (6 sources) Anxiety; Translations: [Anxiety disorder, unspecified] Onset: 09-10-2022 06-26-2022 Chronic Coagulation and hemorrhagic disorders (1 source) Hereditary factor VIII deficiency; 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] Onset: 06-28-2023 Chronic Complication of device; implant or graft (7 sources) Pain due to internal orthopedic prosthetic devices, implants and grafts, initial encounter; Translations: [Instability of internal left knee prosthesis, initial encounter] Onset: 06-01-2022 Episodic Complications of surgical procedures or medical care (4 sources) Iron deficiency anemia; Translations: [Other complications of other bariatric procedure] Onset: 06-28-2023 10-27-2023 Episodic E Codes: Fall (1 source) Unspecified [...] Mood disorders; Translations: [DEPRESSION UNSPECIFIED] Onset: 01-27-2023 Osteoarthritis (5 sources) Unilateral primary osteoarthritis, left knee; Translations: [UNILATERAL PRIMARY OSTEOARTHRITIS, LEFT KNEE] Onset: 10-06-2021 Chronic Other aftercare (5 sources) Aftercare following joint replacement surgery; Translations: [AFTERCARE FOLLOWING JOINT REPLACEMENT SURGERY] Onset: 12-09-2021 Chronic Other aftercare (1 source) half-way (current) use of aspirin; Translations: [PRISON (CURRENT) USE OF ASPIRIN] Onset: 06-03-2022 Episodic Other aftercare (2 sources) Other skilled nursing (current) drug therapy; Translations: [OTHER PRISON (CURRENT) DRUG THERAPY] Onset: 08-12-2021 Episodic Other and unspecified benign neoplasm (2 sources) Benign neoplasm of parotid gland; Translations: [Benign [...] 11-08-2023 Chronic Other gastrointestinal disorders (1 source) Constipation, unspecified; Translations: [Constipation, unspecified] Onset: 08-09-2024 Episodic Other nervous system disorders (2 sources) Other chronic pain; Translations: [Other chronic pain] Onset: 07-24-2024 Chronic Other nervous system disorders (2 sources) Complex [...] Onset: 06-03-2022 Episodic Other non-traumatic joint disorders (6 sources) [...] [Sprain of ankle, unspecified site] 01-06-2024 Episodic Substance-related disorders (2 sources) Opioid use, unspecified, uncomplicated; Translations: [Opioid use, unspecified, uncomplicated] Onset: 07-19-2024 Episodic Unclassified (1 source) C/O POST OP [...] Translations: [Unspecified abdominal pain] Onset: 04-29-2022 Episodic Calculus of urinary tract (17 sources) Kidney stone; Translations: [Calculus of kidney] Onset: 06-29-2022 Episodic Deficiency and other anemia (1 source) Other iron deficiency anemias; Translations: [Other iron deficiency anemias] Onset: 06-28-2023 Episodic Deficiency and other anemia (1 source) Iron deficiency anemia, unspecified; Translations: [Iron deficiency anemia, unspecified] Onset: 11-08-2023 Episodic Fluid and electrolyte disorders (1 source) Hypokalemia; Translations: [Hypokalemia] Onset: 11-08-2023 Episodic Gastritis and duodenitis (1 source) Gastritis, unspecified, without bleeding; Translations: [Gastritis, unspecified, without bleeding] Onset: 12-10-2023 Episodic Malaise and fatigue (1 source) Other fatigue; Translations: [OTHER FATIGUE] Onset: 10-07-2022 Episodic Nausea and vomiting (6 sources) Nausea with vomiting, unspecified; Translations: [Vomiting, unspecified] Onset: 01-25-2023 Episodic Nutritional deficiencies (1 source) Thiamine deficiency, unspecified; Translations: [Thiamine deficiency, unspecified] Onset: 11-08-2023 Episodic Other aftercare (3 sources) Encounter for other specified surgical aftercare; Translations: [ENCOUNTER FOR OTHER SPECIFIED SURGICAL AFTERCARE] Onset: 01-09-2022 Episodic Other gastrointestinal disorders (2 sources) Bariatric surgery status; Translations: [BARIATRIC SURGERY STATUS] Onset: 01-27-2023 Episodic Other gastrointestinal disorders (1 source) Drug induced constipation; Translations: [Drug induced constipation] Onset: 12-10-2023 Episodic Other non-traumatic joint disorders (3 sources) [...] Name Value Interpretation Reference Range Facility [facility] 08-10-2024 Refill [id number] Madyson Moore 1980 F Date Provider Department [place] 08/10/2024 RUKHSANA ESPINOZA PAIN [facility] Family History Problem Relation Age of Onset Brain cancer Mother Breast cancer Sister Kidney cancer Maternal Grandmother Prostate cancer Paternal Grandfather Cancer Father Cancer Sister Family Status - Relation Status Age at Mother Sister Maternal Grandmother Paternal Grandfather Father Sister Reason for Visit and Comments: Med Refill [[id number]] Normal [facility] CBC AND AUTO DIFFon 10-30-20 24 ABSOLUTE BASOPHIL 0.0 X10E9/L Normal 0.0-0.2 [facility] Comment on above: Performed By: #### C BCA, CMP ####[facility] ([id number])[address] [place] [address]22 ABSOLUTE NEUTROPHIL 2.5 X10E9/L Normal 1.5-6.6 [facility] Comment on above: Performed By: #### C BCA, CMP ####[facility] ([id number])[address] [place] [address] 50270 Basophils/100 WBC (Bld) 0.4 % Normal [facility] Comment on above: Performed By: #### C BCA, CMP ####[facility] ([id number])[address] [place] [address] 38593 Eosinophils (Bld) [#/Vol] 0.1 10*3/uL Normal 0.0-0.4 [facility] Comment on above: Performed By: #### C BCA, CMP ####[facility] ([id number])[address] [place] [address] 29542 Eosinophils/100 WBC (Bld) 1.3 % Normal [facility] Comment on above: Performed By: #### C BCA, CMP ####[facility] ([id number])[address] [place] [address] 52866 Erythrocyte distribution width (RBC) [Ratio] 14.2 % Normal 11.5-15.0 [facility] Comment on above: Performed By: #### C BCA, CMP ####[facility] ([id number])[address] [place] [address] 87607 Hematocrit (Bld) [Volume fraction] 34.3 % Low 35-47 [facility] Comment on above: Performed By: #### C BCA, CMP ####[facility] ([id number])[address] [place] [address] 89208 Hemoglobin (Bld) [Mass/Vol] 11.3 g/dL Low 11.7-15.5 [facility] Comment on above: Performed By: #### C GALEN, CMP ####[facility] ([id number])[address] [place] [address] 51342 Lymphocytes (Bld) [#/Vol] 2.6 10*3/uL Normal 1.0-3.5 [facility] Comment on above: Performed By: #### C GALEN, CMP ####[facility] ([id number])[address] [place] [address] 54999 Lymphocytes/100 WBC (Bld) 45.9 % Normal [facility] Comment on above: Performed By: #### C GALEN, CMP ####[facility] ([id number])[address] [place] [address] 14118 MCH (RBC) [Entitic mass] 27.4 pg Normal 27-34 [facility] Comment on above: Performed By: #### C BCA, CMP ####[facility] ([id number])[address] [place] [address] 92448 MCHC (RBC) [Mass/Vol] 33.0 g/dL Normal 32-36 [facility] Comment on above: Performed By: #### C BCA, CMP ####[facility] ([id number])[address] [place] [address] 80917 MCV (RBC) [Entitic vol] 83 fL Normal 80-100 [facility] Comment on above: Performed By: #### C BCA, CMP ####[facility] ([id number])[address] [place] [address] 66808 Monocytes (Bld) [#/Vol] 0.4 10*3/uL Normal 0-0.9 [facility] Comment on above: Performed By: #### C GALEN, CMP ####[facility] ([id number])[address] [place] [address] [place] [address] Monocytes/100 WBC (Bld) 6.8 % Normal [facility] Comment on above: Performed By: #### C GALEN, CMP ####[facility] ([id number])[address] [place] [address] 01933 Neutrophils/100 WBC (Bld) 45.6 % Normal [facility] Comment on above: Performed By: #### C GALEN, CMP ####[facility] ([id number])[address] [place] [address] [place] [address] Platelet mean volume (Bld) [Entitic vol] 7.3 fL Normal 7-12 [facility] Comment on above: Performed By: #### C GALEN, CMP ####[facility] ([id number])[address] [place] [address] 20293 Platelets (Bld) [#/Vol] 253 10*3/uL Normal 150-450 [facility] Comment on above: Performed By: #### C GALEN, CMP ####[facility] ([id number])[address] [place] [address] [place] [address] RBC COUNT 4.12 X10E12/L Normal 3.80-5.20 [facility] Comment on above: Performed By: #### C BCA, CMP ####[facility] ([id number])[address] [place] [address] 50406 WBC (Bld) [#/Vol] 5.6 10*3/uL Normal 4.0-11.0 [facility] Comment on above: Performed By: #### C BCA, CMP ####[facility] ([id number])[address] [place] [address] [place] [address] COMPREHENSIVE METABOLIC PANE [place] 08-09-2024 Albumin [Mass/Vol] 4.3 g/dL Normal 3.2-5.3 [facility] Comment on above: Performed By: #### C BCA, CMP ####[facility] ([id number])[address] [place] [address]12 ALP [Catalytic activity/Vol] 93 U/L Normal 39-130 [facility] Comment on above: Performed By: #### C BCA, CMP ####[facility] ([id number])[address] [place] [address] 94384 ALT [Catalytic activity/Vol] 14 U/L Normal 0-31 [facility] Comment on above: Performed By: #### C BCA, CMP ####[facility] ([id number])[address] [place] [address] 99497 Anion gap [Moles/Vol] 8 mmol/L Normal 5-15 [facility] Comment on above: Performed By: #### C BCA, CMP ####[facility] ([id number])[address] [place] [address] 67279 AST [Catalytic activity/Vol] 14 U/L Normal 0-41 [facility] Comment on above: Performed By: #### C BCA, CMP ####[facility] ([id number])[address] [place] [address] 51245 Bilirubin [Mass/Vol] 0.3 mg/dL Normal 0.3-1.2 [facility] Comment on above: Performed By: #### C BCA, CMP ####[facility] ([id number])[address] [place] [address] [place] [address] Calcium [Mass/Vol] 8.8 mg/dL Normal 8.5-10.5 [facility] Comment on above: Performed By: #### C GALEN, CMP ####[facility] ([id number])[address] [place] [address], [place] [address] Chloride [Moles/Vol] 105 mmol/L Normal 98-109 [facility] Comment on above: Performed By: #### C GALEN, CMP ####[facility] ([id number])[address] [place] [address] 81978 CO2 [Moles/Vol] 26 mmol/L Normal 22-32 [facility] Comment on above: Performed By: #### C GALEN, CMP ####[facility] ([id number])[address] [place] [address] 09343 Creatinine [Mass/Vol] 0.66 mg/dL Normal 0.40-1.00 [facility] Comment on above: Result Comment: METH OD TRACEABLE TO IDMS STANDARD Performed By: #### C GALEN, CMP ####[facility] ([id number])[address] [place] [address] [place] [address] eGFR (CKD-EPI) NON-RACE DEPENDENT >90 Normal >59 [facility] Comment on above: Result Comment: Reported eGFR is based on the CKD-EPI 2020 equation that does not use a race coefficient. Performed By: #### C BCA, CMP ####[facility] ([id number])[address] [place] [address] [place] [address] Glucose [Mass/Vol] 100 mg/dL High 65-99 [facility] Comment on above: Performed By: #### C BCA, CMP ####[facility] ([id number])[address] [place] [address] [place] [address] Potassium [Moles/Vol] 3.8 mmol/L Normal 3.5-5.0 [facility] Comment on above: Performed By: #### C BCA, CMP ####[facility] ([id number])[address] [place] [address] 02528 Protein [Mass/Vol] 7.2 g/dL Normal 6.0-8.0 [facility] Comment on above: Performed By: #### C BCA, CMP ####[facility] ([id number])[address] [place] [address] 86357 Sodium [Moles/Vol] 139 mmol/L Normal 134-146 [facility] Comment on above: Performed By: #### C BCA, CMP ####[facility] ([id number])[address] [place] [address] 25552 Urea nitrogen [Mass/Vol] 18 mg/dL Normal 5-23 [facility] Comment on above: Performed By: #### C BCA, CMP ####[facility] ([id number])[address] [place] [address] ABDOMEN AND PELVIS WO CON [place] 08-09-2024 CT ABDOMEN AND PELVIS WO CONT CT ABDOMEN AND PELVIS WO CONT CT ABDOMEN AND PELVIS WO CONT HISTORY: Left-sided abdominal pain radiating to back, nausea, vomiting COMPARISON: CT abdomen pelvis 03/06/2024 TECHNIQUE: CT images of abdomen and pelvis obtained without the administration of contrast. Lack of IV contrast limits evaluation, especially solid organs. Automated exposure control was utilized. All CT scans at this facility use dose modulation, iterative reconstruction, and/or weight based dosing when appropriate to reduce radiation dose to as low as reasonably achievable. FINDINGS: Suboptimal evaluation of the solid organs, vessels, and lymph nodes in the absence of IV contrast. LOWER CHEST: Lung bases are clear LIVER AND BILIARY: Noncirrhotic liver morphology. Surgically absent gallbladder. PANCREAS: Unremarkable SPLEEN: Unremarkable ADRENALS: Unremarkable KIDNEYS, URETERS, AND BLADDER: No suspicious renal mass or lesion given noncontrast technique.. No collecting system dilatation. No renal/ureteral calculi. Ureters and bladder are unremarkable. GI TRACT AND PERITONEUM: Surgically absent appendix. Terminal ileum is unremarkable appearing. No evidence of bowel obstruction. Large burden of stool in the colon. Sequelae of prior gastric bypass. No pericolonic fat stranding or free intraperitoneal gas. VASCULATURE: Unremarkable LYMPH NODES: No enlarged lymph nodes by size criteria. REPRODUCTIVE ORGANS: Status post hysterectomy with no adnexal abnormalities suggested.. MUSCULOSKELETAL: Right-sided spinal stimulator device with leads appearing to be positioned in the epidural space. No acute abnormality. IMPRESSION: * No acute CT findings in the abdomen/pelvis. Specifically, no renal/ureteral calculi. * Large burden of stool in the colon. Approved by Resident Christelle Abdi DO on 08/09/2024 1:58 AM ISathya MD have personally reviewed the image(s) and agree with and/or edited the report Finalized by Sathya Gates MD on 08/09/2024 2:08 AM Normal [facility] URN MACROSCOPIC NURon 2023 BILIRUBIN JUNIOR Negative Normal NEG [facility] Comment on above: Performed By: #### N UM ####[facility] ([id number])[address] [place] [address] 727[address] BLOOD/HGB JUNIOR Large Abnormal NEG [facility] Comment on above: Performed By: #### N UM ####[facility] ([id number])[address] [place] [address] 0001[address] GLUCOSE JUNIOR Negative Normal NEG [facility] Comment on above: Performed By: #### N UM ####[facility] ([id number])[address] [place] [address] [place] [address] KETONES JUNIOR Negative Normal NEG [facility] Comment on above: Performed By: #### N UM ####[facility] ([id number])[address] [place] [address] [place] [address] LEUKOCYTE ESTERASE JUNIOR Trace Abnormal NEG [facility] Comment on above: Performed By: #### N UM ####[facility] ([id number])[address] [place] [address] 87382 NITRITE JUNIOR Negative Normal NEG [facility] Comment on above: Performed By: #### N UM ####[facility] ([id number])[address] [place] [address] 80678 PH JUNIOR 5.5 Normal 5.0-8.5 [facility] Comment on above: Performed By: #### N UM ####[facility] ([id number])[address] [place] [address] 74615 PROTEIN JUNIOR 30 mg/dL Abnormal NEG [facility] Comment on above: Performed By: #### N UM ####[facility] ([id number])[address] [place] [address] 77219 SPECIFIC GRAVITY JUNIOR >=1.030 Normal 1.003-1.035 [facility] Comment on above: Performed By: #### N UM ####[facility] ([id number])[address] [place] [address] 32098 UROBILINOGEN JUNIOR 1.0 eu/dL Normal <1.1 [facility] Comment on above: Performed By: #### N UM ####[facility] ([id number])[address] [place] [address]69 Follow-Upon 07-24-2024 Follow-Up [id number] Madyson Moore 1980 F Date Provider Department Center 07/24/2024 MONIQUE COON ORTHO MPORTHO Family History Problem Relation Age of Onset Brain cancer Mother Breast cancer Sister Kidney cancer Maternal Grandmother Prostate cancer Paternal Grandfather Cancer Father Cancer Sister Family Status - Relation Status Age at Mother Sister Maternal Grandmother Paternal Grandfather Father Sister Level of Service:69744 [place] OFFICE/OUTPATIENT ESTABLISHED MOD MDM 30 MIN (GC,57) Reason for Visit and Comments: New Patient [632] - History of Left knee revision that was performed on 06/01/22 , initial TKA in 10/[address] . Here today with chronic anterior knee pain since surgery. Follow-up [322255] - History of Left knee revision that was performed on 06/01/22 , initial TKA in 10/[address] . Here today with chronic anterior knee pain since surgery. Normal [facility] Follow-Upon 07-19-2024 Follow-Up [id number] Madyson Moore ma 1980 F Date Provider Department Center 07/19/2024 170-RUKHSANA MILLER PAIN Medical Pavi Family History Problem Relation Age of Onset Brain cancer Mother Breast cancer Sister Kidney cancer Maternal Grandmother Prostate cancer Paternal Grandfather Cancer Father Cancer Sister Family Status - Relation Status Age at Mother Sister Maternal Grandmother Paternal Grandfather Father Sister Level of Service:50802 ND OFFICE/OUTPATIENT ESTABLISHED LOW MDM 20 MIN Reason for Visit and Comments: Med Management [[id number]] - Refill Hydrocodone-acetaminophen Pill count Med Refill [[id number]] - Gabapentin Normal [facility] Surgical Pathology Reporton 07-17-2024 Surgical Pathology Report (NOTE) Path Number: [id number] -- Diagnosis -- RIGHT PAROTID GLAND, 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 Sathya Lockett M.D. 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 Sectioning reveals a 1.5 x 1.0 x 1.0 cm snyder-white, lobulated, slightly hyperemic mass that abuts the blue-inked external surface. The remaining cut surfaces shows snyder to pale yellow, lobulated cut surfaces. The nodule is entirely submitted in 2c. ryan [place]/kb2:07/17/2024 Microscopic Description The circumscribed tumor nodule contains nests and cords of benign epithelial cells embedded in chondromyxoid stroma, consistent with pleomorphic adenoma. The surrounding parotid gland tissue is unremarkable. A small, benign lymph node is present in the fibroadipose tissue surrounding the parotid gland. Processing Lab: [address] [address] Interpretation Performed at [address] [address] SURGICAL PATHOLOGY CONSULTATION Patient Name: ELVI MOORE Med Rec: [id number] [facility] ANATOMIC PATHOLOGY [address] [place] [address]. [place], [place] [address] Normal [facility] C-REACTIVE PROTEINon 024 C REACTIVE PROTEIN (MG/L) IN SER/PLAS 1.7 mg/L Normal 0.0-7.0 [facility] Comment on above: Performed By: #### L [id number] ####[facility] (BEAKER)[address] [place] [address] Labon 07-14-2024 Lab [id number] TeresaMadyson ma 1980 F Date Provider Department Center 07/14/20245-[facility] OPD LAB RESOURCE [facility] OPD [facility] Family History Problem Relation Age of Onset Brain cancer Mother Breast cancer Sister Kidney cancer Maternal Grandmother Prostate cancer Paternal Grandfather Cancer Father Cancer Sister Family Status - Relation Status Age at Mother Sister Maternal Grandmother Paternal Grandfather Father Sister Normal [facility] SEDIMENTATION RATEon 024 SEDIMENTATION RATE, ERYTHROCYTE 20 mm/hr Normal <=20 [facility] Comment on above: Performed By: #### L AB322 ####[facility] ([facility])[address] [place] [address] Orders Onlyon 07-04-2024 Orders Only [id number] LudyjarekModestonicole ma 1980 F Date Provider Department Center 07/04/2024 23249-[facility]DALIA [facility] Medical Pavi Family History Problem Relation Age of Onset Brain cancer Mother Breast cancer Sister Kidney cancer Maternal Grandmother Prostate cancer Paternal Grandfather Cancer Father Cancer Sister Family Status - Relation Status Age at Mother Sister Maternal Grandmother Paternal Grandfather Father Sister Normal [facility] Orders Only [id number] Madyson Moore ma 1980 F Date Provider Department Center 07/04/2024 RUKHSANA ESPINOZA MP PAIN Medical [facility]avi Family History Problem Relation Age of Onset Brain cancer Mother Breast cancer Sister Kidney cancer Maternal Grandmother Prostate cancer Paternal Grandfather Cancer Father Cancer Sister Family Status - Relation Status Age at Mother Sister Maternal Grandmother Paternal Grandfather Father Sister Normal [facility] Refillon 07-03-2024 Refill [id number] Madyson Moore ma 1980 F Date Provider Department Center 07/03/2024 RUKHSANA ESPINOZA MP PAIN Medical [facility]avi Family History Problem Relation Age of Onset Brain cancer Mother Breast cancer Sister Kidney cancer Maternal Grandmother Prostate cancer Paternal Grandfather Cancer Father Cancer Sister Family Status - Relation Status Age at Mother Sister Maternal Grandmother Paternal Grandfather Father Sister Reason for Visit and Comments: Med Refill [[id number]] Normal [facility] Refillon 06-07-2024 Refill [id number] Madyson Moore ma 1980 F Date Provider Department Center 06/07/2024 RUKHSANA ESPINOZA MP PAIN Medical Pavi Family History Problem Relation Age of Onset Brain cancer Mother Breast cancer Sister Kidney cancer Maternal Grandmother Prostate cancer Paternal Grandfather Cancer Father Cancer Sister Family Status - Relation Status Age at Mother Sister Maternal Grandmother Paternal Grandfather Father Sister Reason for Visit and Comments: Med Refill [[id number]] Normal 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 Chronic left anterior knee pain since surgery TECHNIQUE: Multidetector CT axial slices were obtained without IV contrast. Sagittal and coronal 2-D reformatting performed. All CT scans at this facility use dose modulation, iterative reconstruction, and/or weight based dosing when appropriate to reduce radiation dose to as low as reasonably achievable COMPARISON: Left knee radiographs 06/01/2024 IMPRESSION: Impression: 1. Satisfactory alignment of longstem total left knee arthroplasty. Subtle lucency around the tibial and femoral stems of the arthroplasty suspicious for early changes of loosening as noted on the radiographs. No osteolysis or periprosthetic fracture. 2. Small joint effusion. Chronic foci of ossification in the anterior intercondylar region arising from or adjacent to the proximal tibia best visualized on sagittal imaging. Multiple small metallic foci throughout the anterior knee compatible with prior surgery. Electronically signed: Sathya Christianson. Aiyana Andersen Invalid Interpretation Code [facility] Office Visiton 06-01-2024 Follow-up visit [id number] TeresaMadyson ma 1980 F Date Provider Department Center 06/01/2024 499-KHRIS BUCHANAN MP ORTHO MPORTHO Family History Problem Relation Age of Onset Brain cancer Mother Breast cancer Sister Kidney cancer Maternal Grandmother Prostate cancer Paternal Grandfather Cancer Father Cancer Sister Family Status - Relation Status Age at Mother Sister Maternal Grandmother Paternal Grandfather Father Sister Level of Service:31344 ND OFFICE/OUTPATIENT ESTABLISHED LOW MDM 20 MIN Reason for Visit and Comments: New Patient [632] - Patient had 2nd knee replacement about a year ago, since then patient has been having increased pain and swelling, patient does see pain management and has stimulator in back Normal [facility] Refillon 05-09-2024 Refill [id number] TeresaMadyson ma 1980 F Date Provider Department Center 05/09/2024 RUKHSANA ESPINOZA MP PAIN Medical Pavi Family History Problem Relation Age of Onset Brain cancer Mother Breast cancer Sister Kidney cancer Maternal Grandmother Prostate cancer Paternal Grandfather Cancer Father Cancer Sister Family Status - Relation Status Age at Mother Sister Maternal Grandmother Paternal Grandfather Father Sister Reason for Visit and Comments: Med Refill [[id number]] Normal [facility] Refillon 04-07-2024 Refill [id number] Madyson Moore 1980 F Date Provider Department Center 04/07/2024 RUKHSANA ESPINOZA MP PAIN Medical Pavi Family History Problem Relation Age of Onset Brain cancer Mother Breast cancer Sister Kidney cancer Maternal Grandmother Prostate cancer Paternal Grandfather Cancer Father Cancer Sister Family Status - Relation Status Age at Mother Sister Maternal Grandmother Paternal Grandfather Father Sister Reason for Visit and Comments: Med Refill [[id number]] Normal [facility] Nico 03-22-2024 L Specimen: Received: 03/23/24 Status: JOHNATHON Agustin Num: [id number] Spec Type: Cytology Subm Dr: Carissa Pettit MD Tissues: A FNA SLIDES NOPATH (RT PAROTID MASS) Procedures: HE/2, p63, Cyto Int and Re, p40, PAPSTN/9 Age/ Patient Sex Location Account Attending Physician Elvi Moore 43/F [facility] [id number] Carissa Pettit MD SPEC NUM: [id number] RECD: 03/23/24 STATUS: JOHNATHON AGUSTIN NUM: [id number] JHONATAN: 03/22/24- DR: Carissa Pettit MD ENTERED: 03/23/24-[address]: Monique,Lab Arleth Acharya MD SPEC TYPE: Cytology DEPT: [facility] ENTERED BY: [id number] RECV BY: [id number] ORDERED: HE/2, p63, Cyto Int and Re, [...] deeper level of sections for IHC CPT: 31374, 20809 Addendum Signed (signature on file) Luis F [...] the Specimen: [id number] Received: 03/23/24 Status: JOHNATHON Agustin Num: [id number] Spec Type: Cytology Subm Dr: Carissa Pettit MD Tissues: A FNA SLIDES NOPATH (RT PAROTID MASS) Procedures: HE/2, p63, Cyto Int and Re, p40, PAPSTN/9 Patient: Elvi Moore [id number] (Continued) Specimen: [id number] Received: 03/23/24 (Continued) Pathological Diagnosis (Continued) Signed (signature on file) Luis F Roldan MD 03/29/24 1124 Specimen: [id number] Received: 03/23/24 Status: JOHNATHON Agustin Num: [id number] Spec Type: Cytology Subm Dr: Carissa Pettit MD Tissues: A FNA SLIDES NOPATH (RT PAROTID MASS) Procedures: HE/2, p63, Cyto Int and Re, p40, PAPSTN/9 Patient: Elvi Moore Izabel [id number] (Continued) Specimen: [id number] Received: 03/23/24 (Continued) Pathological Diagnosis (Continued) ThinPrep [...] slides to be stained pap for microscopic examination.(CC/ia) CPT Codes 62941 35595 Specimen: [id number] Received: 03/23/24 Status: JOHNATHON Agustin Num: [id number] Spec Type: Cytology Subm Dr: Carissa Pettit MD Tissues: A FNA SLIDES NOPATH (RT PAROTID MASS) Procedures: HE/2, p63, Cyto Int and Re, p40, PAPSTN/9 Patient: Elvi Moore [id number] (Continued) Signed (signature on file) Luis F Roldan MD 03/29/24 1124 [facility] Follow-Upon 03-17-2024 Follow-Up [id number] Madyson Moore 1980 F Date Provider Department Center 03/17/2024 170-RUKHSANA MILLER MP PAIN Medical Pavi Family History Problem Relation Age of Onset Brain cancer Mother Breast cancer Sister Kidney cancer Maternal Grandmother Prostate cancer Paternal Grandfather Cancer Father Cancer Sister Family Status - Relation Status Age at Mother Sister Maternal Grandmother Paternal Grandfather Father Sister Level of Service:76672 [place] OFFICE/OUTPATIENT ESTABLISHED LOW MDM 20 MIN Reason for Visit and Comments: Knee Pain [827904] - Left knee pain Normal [facility] Screenson 03-08-2024 Screens [id number] Normal [facility] Patient Educationon 03-07-20 Patient Education Nephrology Dietary Guidelines to Help [...] ? 8 oz (237 mL) of milk, avstkwq-oidofxmynqqw-zili y milk, and calcium-fortifiedfruit juice. Calcium-fortified means [...] Spinach (cooked), rhubarb, beets, sweet potatoes, and Mauritian chard. ? Peanuts. ? Potato chips, turkish fries, and baked potatoes with skin on. ? Nuts and nut products. ? Chocolate. ? If you regularly take a diuretic medicine, make sure to eat at least 1 or 2 servings of fruits or vegetables that are high in potassium each day. These include: ? Avocado. ? Banana. ? [place], prune, carrot, or tomato juice. ? Baked [...] fish oil, or vitamin B6. ? Take vvta-ymk-cwesumw and prescription medicines only as told by your health care provider. These include supplements. What foods sh (more content not included)... Normal [facility]24 [facility] [id number] Normal [facility] Urology Office/Clinic Noteon 03-07-2024 Urology Office/Clinic Note [...] 10/12/23. Stone analysis: 60% CaOx Di, 35% [place]. 5% Phos Hydoxyl. KUB 03/03/24 [facility] - [...] Contact Information STEPH AVITIA, ELIZABETH Yi, URL [address] [place] [address] [phone] Additional Instructions: 1 yr w/ KUB Patient [...] 100 mg= 1 tab(s), Oral multivitamin, Daily [place] 325 mg-5 mg oral tablet, 1 tab(s), [...] virus vaccine, inactivated 07/29/2022 Recorded SARS-CoV-2 (COVID-19) mRNAMUL.ORD![id number] 07/29/2022 Recorded SARS-CoV-2 (COVID-19) mRNA BNT-162b2 vax 10/08/2021 Recorded SARS-CoV-2 (COVID-19) mRNA BNT-162b2 vax 01/30/2021 Recorded SARS-CoV-2 (COVID-19) mRNA BNT-162b2 vax 01/09/2021 Recorded influenza virus vaccine, inactivated 07/11/2020 R (more content not included)... Normal [facility] Comment on above: Result Comment: Elec tronically Signed By: ELIZABETH VACA PA-C\.br\Date and Time Signed: 03/07/24 16:31 EDT\.br\Electronically Co-Signed By: Kandice Hardy\.br\Date and Time Co-Signed: 03/07/24 16:30 EDT CBC AND AUTO DIFFon 03-06-20 ABSOLUTE BASOPHIL 0.0 X10E9/L [facility]0.2 [facility] Comment on above: Performed By: #### C GALEN, CMP ####[facility] ([id number])[address] [place] [address] ABSOLUTE NEUTROPHIL 4.5 X10E9/L Normal 1.5-6.6 [facility] Comment on above: Performed By: #### C GALEN, CMP ####[facility] ([id number])[address] [place] [address] 21487 Basophils/100 WBC (Bld) 0.3 % Normal [facility] Comment on above: Performed By: #### C BCA, CMP ####[facility] ([id number])[address] [place] [address] 43118 Eosinophils (Bld) [#/Vol] 0.0 10*3/uL Normal 0.0-0.4 [facility] Comment on above: Performed By: #### C GALEN, CMP ####[facility] ([id number])[address] [place] [address] 82647 Eosinophils/100 WBC (Bld) 0.6 % Normal [facility] Comment on above: Performed By: #### C GALEN, CMP ####[facility] ([id number])[address] [place] [address] 59002 Erythrocyte distribution width (RBC) [Ratio] 14.6 % Normal 11.5-15.0 [facility] Comment on above: Performed By: #### C GALEN, CMP ####[facility] ([id number])[address] [place] [address] 97619 Hematocrit (Bld) [Volume fraction] 39.4 % Normal 35-47 [facility] Comment on above: Performed By: #### C GALEN, CMP ####[facility] ([id number])[address] [place] [address] 51564 Hemoglobin (Bld) [Mass/Vol] 13.1 g/dL Normal 11.7-15.5 [facility] Comment on above: Performed By: #### C BCA, CMP ####[facility] ([id number])[address] [place] [address] 87448 Lymphocytes (Bld) [#/Vol] 2.0 10*3/uL Normal 1.0-3.5 [facility] Comment on above: Performed By: #### C BCA, CMP ####[facility] ([id number])[address] [place] [address] 73002 Lymphocytes/100 WBC (Bld) 28.1 % Normal [facility] Comment on above: Performed By: #### C BCA, CMP ####[facility] ([id number])[address] [place] [address] 63164 MCH (RBC) [Entitic mass] 28.2 pg Normal 27-34 [facility] Comment on above: Performed By: #### C GALEN, CMP ####[facility] ([id number])[address] [place] [address] 65173 MCHC (RBC) [Mass/Vol] 33.2 g/dL Normal 32-36 [facility] Comment on above: Performed By: #### C GALEN, CMP ####[facility] ([id number])[address] [place] [address] 93327 MCV (RBC) [Entitic vol] 85 fL Normal 80-100 [facility] Comment on above: Performed By: #### C BCA, CMP ####[facility] ([id number])[address] [place] [address] 30631 Monocytes (Bld) [#/Vol] 0.6 10*3/uL Normal 0-0.9 [facility] Comment on above: Performed By: #### C BCA, CMP ####[facility] ([id number])[address] [place] [address] 05659 Monocytes/100 WBC (Bld) 8.3 % Normal [facility] Comment on above: Performed By: #### C BCA, CMP ####[facility] ([id number])[address] [place] [address] 37811 Neutrophils/100 WBC (Bld) 62.7 % Normal [facility] Comment on above: Performed By: #### C BCA, CMP ####[facility] ([id number])[address] [place] [address] 12126 Platelet mean volume (Bld) [Entitic vol] 8.3 fL Normal 7-12 [facility] Comment on above: Performed By: #### C BCA, CMP ####[facility] ([id number])[address] [place] [address] 02665 Platelets (Bld) [#/Vol] 279 10*3/uL Normal 150-450 [facility] Comment on above: Performed By: #### C BCA, CMP ####[facility] ([id number])[address] [place] [address] 81734 RBC COUNT 4.63 X10E12/L Normal 3.80-5.20 [facility] Comment on above: Performed By: #### C BCA, CMP ####[facility] ([id number])[address] [place] [address] 22221 WBC (Bld) [#/Vol] 7.2 10*3/uL Normal 4.0-11.0 [facility] Comment on above: Performed By: #### C BCA, CMP ####[facility] ([id number])[address] [place] [address] 60334 COMPREHENSIVE METABOLIC PANE [facility] 03-06-2024 Albumin [Mass/Vol] 4.4 g/dL Normal 3.2-5.3 [facility] Comment on above: Performed By: #### C BCA, CMP ####[facility] ([id number])[address] [place] [address] 04422 ALP [Catalytic activity/Vol] 96 U/L Normal 39-130 [facility] Comment on above: Performed By: #### C BCA, CMP ####[facility] ([id number])[address] [place] [address], [place] [address] ALT [Catalytic activity/Vol] 16 U/L Normal 0-31 [facility] Comment on above: Performed By: #### C BCA, CMP ####[facility] ([id number])[address] [place] [address], [place] [address] Anion gap [Moles/Vol] 6 mmol/L Normal 5-15 [facility] Comment on above: Performed By: #### C BCA, CMP ####[facility] ([id number])[address] [place] [address], [place] [address] AST [Catalytic activity/Vol] 22 U/L Normal 0-41 [facility] Comment on above: Performed By: #### C BCA, CMP ####[facility] ([id number])[address] [place] [address], [place] [address] Bilirubin [Mass/Vol] 0.4 mg/dL Normal 0.3-1.2 [facility] Comment on above: Performed By: #### C BCA, CMP ####[facility] ([id number])[address] [place] [address], [place] [address] Calcium [Mass/Vol] 8.7 mg/dL Normal 8.5-10.5 [facility] Comment on above: Performed By: #### C BCA, CMP ####[facility] ([id number])[address] [place] [address], [place] [address] Chloride [Moles/Vol] 107 mmol/L Normal 98-109 [facility] Comment on above: Performed By: #### C BCA, CMP ####[facility] ([id number])[address] [place] [address], [place] [address] CO2 [Moles/Vol] 26 mmol/L Normal 22-32 [facility] Comment on above: Performed By: #### C BCA, CMP ####[facility] ([id number])[address] [place] [address] [place] [address] Creatinine [Mass/Vol] 0.64 mg/dL Normal 0.40-1.00 [facility] Comment on above: Result Comment: METH OD TRACEABLE TO IDMS STANDARD Performed By: #### C BCA, CMP ####[facility] ([id number])[address] [place] [address] 84139 eGFR (CKD-EPI) NON-RACE DEPENDENT >90 Normal >59 [facility] Comment on above: Result Comment: Reported eGFR is based on the CKD-EPI 2020 equation that does not use a race coefficient. Performed By: #### C BCA, CMP ####[facility] ([id number])[address] [place] [address] 49486 Glucose [Mass/Vol] 88 mg/dL Normal 65-99 [facility] Comment on above: Performed By: #### C BCA, CMP ####[facility] ([id number])[address] [place] [address] 40388 Potassium [Moles/Vol] 3.6 mmol/L Normal 3.5-5.0 [facility] Comment on above: Performed By: #### C BCA, CMP ####[facility] ([id number])[address] [place] [address] 84313 Protein [Mass/Vol] 8.0 g/dL Normal 6.0-8.0 [facility] Comment on above: Performed By: #### C BCA, CMP ####[facility] ([id number])[address] [place] [address] 21755 Sodium [Moles/Vol] 139 mmol/L Normal 134-146 [facility] Comment on above: Performed By: #### C BCA, CMP ####[facility] ([id number])[address] [place] [address] [place] [address] Urea nitrogen [Mass/Vol] 14 mg/dL Normal 5-23 [facility] Comment on above: Performed By: #### C BCA, CMP ####[facility] ([id number])[address] [place] [address] CT ABDOMEN AND PELVIS WO CON Ton 03-06-2024 CT ABDOMEN AND PELVIS WO CONT CT [...] Schmidt MD on 03/06/2024 11:46 PM Normal [facility] URINE CULTUREon 03-06-2024 Bacteria identified Cx Nom (U) SPECIMEN NOTES URINE RECEIVED WITHOUT PRESERVATIVE CULTURE RESULTS 10-50,000 ORGANISMS/mL NORMAL UROGENITAL ALE Normal [facility] Comment on above: Performed By: #### 6 30-4 ####[facility] ([id number])[address] [facility], [address], [place] [address] URN MACROSCOPIC NURon 2023 BILIRUBIN JUNIOR Negative Normal NEG [facility] Comment on above: Performed By: #### N UM ####[facility] ([id number])[address] [place] [address] 61315 BLOOD/HGB JUNIOR Large Abnormal NEG [facility] Comment on above: Performed By: #### N UM ####[facility] ([id number])[address] [place] [address], [place] [address] GLUCOSE JUNIOR Negative Normal NEG [facility] Comment on above: Performed By: #### N UM ####[facility] ([id number])[address] [place] [address], [place] [address] KETONES JUNIOR Negative Normal NEG [facility] Comment on above: Performed By: #### N UM ####[facility] ([id number])[address] [place] [address], [place] [address] LEUKOCYTE ESTERASE JUNIOR Negative Normal NEG [facility] Comment on above: Performed By: #### N UM ####[facility] ([id number])[address] [place] [address], [place] [address] NITRITE JUNIOR Negative Normal NEG [facility] Comment on above: Performed By: #### N UM ####[facility] ([id number])[address] [place] [address], [place] [address] PH JUNIOR 7.0 Normal 5.0-8.5 [facility] Comment on above: Performed By: #### N UM ####[facility] ([id number])[address] [place] [address], [place] [address] PROTEIN JUNIOR 30 mg/dL Abnormal NEG [facility] Comment on above: Performed By: #### N UM ####[facility] ([id number])[address] [place] [address], [place] [address] SPECIFIC GRAVITY JUNIOR 1.025 Normal 1.003-1.035 [facility] Comment on above: Performed By: #### N UM ####[facility] ([id number])[address] [place] [address], [place] [address] UROBILINOGEN JUNIOR 1.0 eu/dL Normal <1.1 [facility] Comment on above: Performed By: #### N UM ####[facility] ([id number])[address] [place] [address], [place] [address] Lab Reportson 02-22-2024 Lab Reports [id number]#1.00TIFF Normal [facility] Lab Reportson 02-18-2024 Lab Reports [id number]#1.00TIFF Normal [facility] Lab Reportson 02-17-2024 Lab Reports [id number]#1.00TIFF Normal [facility] 24 HR PHOSPHORUS,URINEon URINE PHOSPHORUS 0.8 g/24h Normal 0.4-1.3 [facility] Comment on above: Performed By: #### U PO4 ####[facility] ([id number])[address] [address] [place] [address]2013 24 HR UR MAGNESIUMon 024 URINE MAGNESIUM 116 mg/24h Normal 72-182 [facility] Comment on above: Performed By: #### U CA, UCR, UMAG, DARLEEN, UUA ####[facility] ([id number])[address] [address] [place] [address] 18060 24 HR URINE CALCIUMon 2023 URINE CALCIUM 134 mg/24h Normal 50-250 [facility] Comment on above: Performed By: #### U CA, UCR, UMAG, DARLEEN, UUA ####[facility] ([id number])[address] [address] [place] [address] 76282 24 HR URINE CREATININEon URINE CREATININE 0.88 g/24h Normal 0.80-1.80 [facility] Comment on above: Performed By: #### U CA, UCR, UMAG, DARLEEN, UUA ####[facility] ([id number])[address] [place] [address] 24 HR URINE SODIUMon 024 URINE SODIUM 189 mmol/24h Normal 40-220 [facility] Comment on above: Performed By: #### U CA, UCR, UMAG, DARLEEN, UUA ####[facility] ([id number])[address], [address] [place] [address] 66729 24 HR URINE URIC ACIDon 05-0 URINE URIC ACID 0.4 g/24h Normal 0.3-0.8 [facility] Comment on above: Performed By: #### U CA, UCR, UMAG, DARLEEN, UUA ####[facility] ([id number])[address], [address] [place] [address] 21915 BLOOD UREA NITROGENon 2023 Urea nitrogen [Mass/Vol] 9 mg/dL Normal 5-23 [facility] Comment on above: Performed By: #### C BCA, CMP #### [facility] ([id number]) [address] [place] [address] 60097 CALCIUMon 02-15-2024 Calcium [Mass/Vol] 9.0 mg/dL Normal 8.5-10.5 [facility] Comment on above: Performed By: #### C BCA, CMP #### [facility] ([id number]) [address] [place] [address] 88009 CARBON DIOXIDEon 02-15-2024 CO2 [Moles/Vol] 22 mmol/L Normal 22-32 [facility] Comment on above: Performed By: #### C BCA, CMP #### [facility] ([id number]) [address] [place] [address] 70929 CHLORIDEon 02-15-2024 Chloride [Moles/Vol] 111 mmol/L High 98-109 [facility] Comment on above: Performed By: #### C BCA, CMP #### [facility] ([id number]) [address] [place] [address] CITRIC ACID URINEon 02-15-20 24 CITRIC ACID,24H UR 550 mg/d Normal 320-1240 [facility] Comment on above: Performed By: #### 3 094-0, 06805-7, 0, 2028-06, INVESTIGATION SPECIALIST, 2951- 2, 2777-1, 3084-1, 2731-8 ####[facility] ([id number])[address] [place] [address], [address] [place] [address]30#### CITACU ####[facility] ([id number])[address] [place] [address] CITRIC ACID,UR,VOL 611 mg/L Normal [facility] Comment on above: Performed By: #### 3 094-0, 45927-7, , 2028-06, INVESTIGATION SPECIALIST, 2951- 2, 2777-1, 3084-1, 273-8 ####[facility] ([id number])[address] [place] [address], [address] [address]#### CITACU ####[facility] ([id number])[address] [place] [address] 98085 CITRIC/CREAT RATIO 593 mg/g Normal >=150 [facility] Comment on above: Result Comment: NOTE INTERPRETIVE INFORMATION: Citric Acid, Urine This test was developed and its performance characteristics determined by [facility]. It has not been cleared or approved by the US Food and Drug Administration. This test was performed in a CLIA certified laboratory and is intended for clinical purposes. Performed By: [facility] [address] [place] [address] [employer]: Luca Mosquera MD, PhD CLIA Number: [id number] Performed By: #### 3 094-0, 04179-1, 0, 2028-06, INVESTIGATION SPECIALIST, 2951-2, 2777-1, 3084-1, 2731-8 ####[facility] ([id number])[address], [address] [place] [address] 44528#### CITACU ####[facility] ([id number])[address] [place] [address] 88191 CREATININE,24H URINE 927 mg/d Normal 700-1600 [facility] Comment on above: Performed By: #### 3 094-0, 71980-0, 2074-0, 2028-06, INVESTIGATION SPECIALIST, 2951- 2, 2777-1, 3084-1, 2731-8 ####[facility] ([id number])[address] [facility], [address] [place] [address]#### CITACU ####[facility] ([id number])[address] [place] [address] 24818 CREATININE,UR,VOL 103 mg/dL Normal [facility] Comment on above: Performed By: #### 3 094-0, 94287-1, 0, 2028-06, INVESTIGATION SPECIALIST, 2951- 2, 2777-1, 3084-1, 2731-8 ####[facility] ([id number])[address], [address] [place] [address]22#### CITACU ####[facility] ([id number])[address] [place] [address] 84683 HOURS COLLECTED 24 Normal [facility] Comment on above: Performed By: #### 3 094-0, 45603-7, 0, 2028-06, INVESTIGATION SPECIALIST, 2951- 2, 2777-1, 3084-1, 273-8 ####[facility] ([id number])[address], [address] [place] [address] 66094#### CITACU ####[facility] ([id number])[address] [place] [address] 22117 TOT VOLUME-24H URINE 900 Normal [facility] Comment on above: Performed By: #### 3 094-0, 13313-5, 2075-0, 8-9, INVESTIGATION SPECIALIST, 2951- 2, 2777-1, 3084-1, 2731-8 ####[facility] ([id number])[address] [facility], [address], [place] [address]#### CITACU ####[facility] ([id number])[address] [place] [address] 43216 CREATININEon 02-15-2024 Creatinine [Mass/Vol] 0.70 mg/dL Normal 0.40-1.00 [facility] Comment on above: Result Comment: METH OD TRACEABLE TO IDMS STANDARD Performed By: #### C BCA, CMP #### [facility] ([id number]) [address] [place] [address] 84939 eGFR (CKD-EPI) NON-RACE DEPENDENT >90 Normal >59 [facility] Comment on above: Result Comment: Reported eGFR is based on the CKD-EPI 2020 equation that does not use a race coefficient. Performed By: #### C BCA, CMP #### [facility] ([id number]) [address] [place] [address] 40756 OXALATE, TOTAL URINEon 02-14 CREATININE,24H URINE 945 mg/d Normal 700-1600 [facility] Comment on above: Result Comment: NOTE Performed By: [facility] [address] [place] [address] [employer]: Luca Mosquera MD, PhD CLIA Number: [id number] Performed By: #### O XALTU ####[facility] ([id number])[address] [place] [address] 51621 CREATININE,UR,VOL 105 mg/dL Normal [facility] Comment on above: Performed By: #### O XALTU ####[facility] ([id number])[address] [place] [address] 65602 HOURS COLLECTED 24 Normal [facility] Comment on above: Performed By: #### O VU ####[facility] ([id number])[address] [place] [address], [place] [address] OXALATE, PER VOLUME 32 mg/L Normal [facility] Comment on above: Performed By: #### O VU ####[facility] ([id number])[address] [place] [address] 51176 OXALATE,URINE/24H 29 mg/d Normal 13-40 [facility] Comment on above: Result Comment: NOTE REFERENCE INTERVAL: Oxalate, Urine - per 24h Access complete set of age- and/or gender-specific reference intervals for this test in the [employer] Test Directory ([place]). This test was developed and its performance characteristics determined by [facility]. It has not been cleared or approved by the US Food and Drug Administration. This test was performed in a CLIA certified laboratory and is intended for clinical purposes. Performed By: #### O VU ####[facility] ([id number])[address] [place] [address] 74993 TOT VOLUME-24H URINE 900 Normal [facility] Comment on above: Performed By: #### O VU ####[facility] ([id number])[address] [place] [address] 87958 PHOSPHORUSon 02-15-2024 Phosphate [Mass/Vol] 3.7 mg/dL Normal 2.4-4.9 [facility] Comment on above: Performed By: #### C BCA, CMP #### [facility] ([id number]) [address] [place] [address] 50904 Parathyrin.intact [Mass/Vol] on 02-15-2024 PTH INTACT 65 pg/mL Normal 12-88 [facility] Comment on above: Performed By: #### C BCA, CMP #### [facility] ([id number]) [address] [place] [address] 86172 SODIUMon 02-15-2024 Sodium [Moles/Vol] 141 mmol/L Normal 134-146 [facility] Comment on above: Performed By: #### C BCA, CMP #### [facility] ([id number]) [address] [place] [address] 87740 URIC ACIDon 02-15-2024 Urate [Mass/Vol] 3.6 mg/dL Normal 2.6-7.2 [facility] Comment on above: Performed By: #### C BCA, CMP #### [facility] ([id number]) [address] [place] [address] 15471 URINE VOLUME AND TIMEon TIME 24 h Normal [facility] Comment on above: Performed By: #### C BCA, CMP #### [facility] ([id number]) [address] [place] [address] 83985 TOTAL VOLUME 900 mL Normal [facility] Comment on above: Performed By: #### C BCA, CMP #### [facility] ([id number]) [address] [place] [address] 05826 TIME 24 h Normal [facility] Comment on above: Performed By: #### U PO4 ####[facility] ([id number])[address], [place] [address] Performed By: #### O XALTU ####[facility] ([id number])[address] [place] [address] [place] [address] Performed By: #### U CA, UCR, UMAG, DARLEEN, UUA ####[facility] ([id number])[address], [place] [address] TOTAL VOLUME 900 mL Normal [facility] Comment on above: Performed By: #### U PO4 ####[facility] ([id number])[address] [facility], [address] [place] [address]005 Performed By: #### O FOREIGNU ####[facility] ([id number])[address] [place] [address] Performed By: #### U CA, UCR, UMAG, DARLEEN, UUA ####[facility] ([id number])[address] [facility], [address] [place] [address] 74852 Orders Onlyon 02-04-2024 Orders Only [id number] Madyson Moore ma 1980 F Date Provider Department Center 02/04/2024 RUKHSANA ESPINOZA MP PA[facility] Family History Problem Relation Age of Onset Brain cancer Mother Breast cancer Sister Kidney cancer Maternal Grandmother Prostate cancer Paternal Grandfather Cancer Father Cancer Sister Family Status - Relation Status Age at Mother Sister Maternal Grandmother Paternal Grandfather Father Sister Normal [facility] Orders Onlyon 01-19-2024 Orders Only [id number] Madyson Moore ma 1980 F Date Provider Department Center 01/19/2024 RUKHSANA ESPINOZA MP PAIN [facility] Family History Problem Relation Age of Onset Brain cancer Mother Breast cancer Sister Kidney cancer Maternal Grandmother Prostate cancer Paternal Grandfather Cancer Father Cancer Sister Family Status - Relation Status Age at Mother Sister Maternal Grandmother Paternal Grandfather Father Sister [facility] 36on 01-06-2024 36 I called patient and left a voicemail and advice to be seen in ED. Normal [facility] XR ankle LT min 3V*on 2023 XR ankle LT min 3V* [facility] [address] [place] [address] [place] [address] XRay Report Signed Patient: Elvi Moore MR#: [id number] : 1980 Acct:[id number] Age/Sex: 43 / F ADM Date: 01/06/24 Loc: XDUCLY Room: Type: [facility] Attending Dr: Rianna Antonio APRN Copies [...] Solange Brown M.D.01/06/2024 6:47 PM Dictation Location: [place] [address] Transcribed By: [facility] 01/06/241846 Dictated By: Solange Brown MD 01/06/241845 Signed By: 01/06/241846 Normal [facility] Follow-Upon 12-24-2023 Follow-Up [id number] Madyson Moore 1980 F Date Provider Department Center 12/24/2023 170-RUKHSANA MILLER PAIN [facility] Family History Problem Relation Age of Onset Brain cancer Mother Breast cancer Sister Kidney cancer Maternal Grandmother Prostate cancer Paternal Grandfather Cancer Father Cancer Sister Family Status - Relation Status Age at Mother Sister Maternal Grandmother Paternal Grandfather Father Sister Level of Service:25383 ND OFFICE/OUTPATIENT ESTABLISHED LOW MDM 20 MIN Reason for Visit and Comments: Follow-up [083849] - Chief complaint : L knee Normal [facility] CBC AND AUTO DIFFon 12-10-19 24 ABSOLUTE BASOPHIL 0.0 X10E9/L Normal 0.0-0.2 [facility] Comment on above: Performed By: #### C BCA, CMP #### [facility] ([id number]) [address] [place] [address] 13630 ABSOLUTE NEUTROPHIL 6.4 X10E9/L Normal 1.5-6.6 [facility] Comment on above: Performed By: #### C BCA, CMP #### [facility] ([id number]) [address] [place] [address] 56835 Basophils/100 WBC (Bld) 0.3 % Normal [facility] Comment on above: Performed By: #### C GALEN, CMP #### [facility] ([id number]) [address] [place] [address] 65608 Eosinophils (Bld) [#/Vol] 0.0 10*3/uL Normal 0.0-0.4 [facility] Comment on above: Performed By: #### C GALEN, CMP #### [facility] ([id number]) [address] [place] [address] 84598 Eosinophils/100 WBC (Bld) 0.4 % Normal [facility] Comment on above: Performed By: #### C GALEN, CMP #### [facility] ([id number]) [address] [place] [address] 88140 Erythrocyte distribution width (RBC) [Ratio] 13.7 % Normal 11.5-15.0 [facility] Comment on above: Performed By: #### C GALEN, CMP #### [facility] ([id number]) [address] [place] [address] 78211 Hematocrit (Bld) [Volume fraction] 41.2 % Normal 35-47 [facility] Comment on above: Performed By: #### C GALEN, CMP #### [facility] ([id number]) [address] [place] [address] 23402 Hemoglobin (Bld) [Mass/Vol] 13.7 g/dL Normal 11.7-15.5 [facility] Comment on above: Performed By: #### C GALEN, CMP #### [facility] ([id number]) [address] [place] [address] 97116 Lymphocytes (Bld) [#/Vol] 2.8 10*3/uL Normal 1.0-3.5 [facility] Comment on above: Performed By: #### C BCA, CMP #### [facility] ([id number]) [address] [place] [address] 55428 Lymphocytes/100 WBC (Bld) 28.3 % Normal [facility] Comment on above: Performed By: #### C BCA, CMP #### [facility] ([id number]) [address] [place] [address] 26421 MCH (RBC) [Entitic mass] 29.8 pg Normal 27-34 [facility] Comment on above: Performed By: #### C BCA, CMP #### [facility] ([id number]) [address] [place] [address] 64536 MCHC (RBC) [Mass/Vol] 33.4 g/dL Normal 32-36 [facility] Comment on above: Performed By: #### C BCA, CMP #### [facility] ([id number]) [address] [place] [address] 20724 MCV (RBC) [Entitic vol] 89 fL Normal 80-100 [facility] Comment on above: Performed By: #### C BCA, CMP #### [facility] ([id number]) [address] [place] [address] 67995 Monocytes (Bld) [#/Vol] 0.6 10*3/uL Normal 0-0.9 [facility] Comment on above: Performed By: #### C BCA, CMP #### [facility] ([id number]) [address] [place] [address] 45094 Monocytes/100 WBC (Bld) 5.9 % Normal [facility] Comment on above: Performed By: #### C BCA, CMP #### [facility] ([id number]) [address] [place] [address] 88654 Neutrophils/100 WBC (Bld) 65.1 % Normal [facility] Comment on above: Performed By: #### C BCA, CMP #### [facility] ([id number]) [address] [place] [address] 04615 Platelet mean volume (Bld) [Entitic vol] 7.1 fL Normal 7-12 [facility] Comment on above: Performed By: #### C BCA, CMP #### [facility] ([id number]) [address] [place] [address] 24237 Platelets (Bld) [#/Vol] 329 10*3/uL Normal 150-450 [facility] Comment on above: Performed By: #### C BCA, CMP #### [facility] ([id number]) [address] [place] [address] 84828 RBC COUNT 4.60 X10E12/L Normal 3.80-5.20 [facility] Comment on above: Performed By: #### C GALEN, CMP #### [facility] ([id number]) [address] [place] [address] [id number] WBC (Bld) [#/Vol] 9.8 10*3/uL Normal 4.0-11.0 [facility] Comment on above: Performed By: #### C GALEN, CMP #### [facility] ([id number]) [address] [place] [address] [id number] COMPREHENSIVE METABOLIC PANE [place] 12-10-2023 Albumin [Mass/Vol] 4.6 g/dL Normal 3.2-5.3 [facility] Comment on above: Performed By: #### C BCA, CMP #### [facility] ([id number]) [address] [place] [address] [id number] ALP [Catalytic activity/Vol] 80 U/L Normal 39-130 [facility] Comment on above: Performed By: #### C BCA, CMP #### [facility] ([id number]) [address] [place] [address] 61659 ALT [Catalytic activity/Vol] 23 U/L Normal 0-31 [facility] Comment on above: Performed By: #### C BCA, CMP #### [facility] ([id number]) [address] [place] [address] [id number] Anion gap [Moles/Vol] 6 mmol/L Normal 5-15 [facility] Comment on above: Performed By: #### C BCA, CMP #### [facility] ([id number]) [address] [place] [address] 48465 AST [Catalytic activity/Vol] 20 U/L Normal 0-41 [facility] Comment on above: Performed By: #### C BCA, CMP #### [facility] ([id number]) [address] [place] [address] 30133 Bilirubin [Mass/Vol] 0.3 mg/dL Normal 0.3-1.2 [facility] Comment on above: Performed By: #### C BCA, CMP #### [facility] ([id number]) [address] [place] [address] 55391 Calcium [Mass/Vol] 8.5 mg/dL Normal 8.5-10.5 [facility] Comment on above: Performed By: #### C BCA, CMP #### [facility] ([id number]) [address] [place] [address] 48872 Chloride [Moles/Vol] 105 mmol/L Normal 98-109 [facility] Comment on above: Performed By: #### C BCA, CMP #### [facility] ([id number]) [address] [place] [address] 41249 CO2 [Moles/Vol] 27 mmol/L Normal 22-32 [facility] Comment on above: Performed By: #### C BCA, CMP #### [facility] ([id number]) [address] [place] [address] 54051 Creatinine [Mass/Vol] 0.59 mg/dL Normal 0.40-1.00 [facility] Comment on above: Result Comment: METH OD TRACEABLE TO IDMS STANDARD Performed By: #### C BCA, CMP #### [facility] ([id number]) [address] [place] [address] 56240 eGFR (CKD-EPI) NON-RACE DEPENDENT >90 Normal >59 [facility] Comment on above: Result Comment: Reported eGFR is based on the CKD-EPI 2020 equation that does not use a race coefficient. Performed By: #### C BCA, CMP #### [facility] ([id number]) [address] [place] [address] 29285 Glucose [Mass/Vol] 100 mg/dL High 65-99 [facility] Comment on above: Performed By: #### C BCA, CMP #### [facility] ([id number]) [address] [place] [address] 68632 Potassium [Moles/Vol] 3.5 mmol/L Normal 3.5-5.0 [facility] Comment on above: Performed By: #### C BCA, CMP #### [facility] ([id number]) [address] [place] [address] 05250 Protein [Mass/Vol] 7.8 g/dL Normal 6.0-8.0 [facility] Comment on above: Performed By: #### C BCA, CMP #### [facility] ([id number]) [address] [place] [address] 79777 Sodium [Moles/Vol] 138 mmol/L Normal 134-146 [facility] Comment on above: Performed By: #### C BCA, CMP #### [facility] ([id number]) [address] [place] [address] 55594 Urea nitrogen [Mass/Vol] 19 mg/dL Normal 5-23 [facility] Comment on above: Performed By: #### C BCA, CMP #### [facility] ([id number]) [address] [place] [address] ABDOMEN AND PELVIS W CONT on [...] Gates MD on 12/10/2023 2:08 AM Normal [facility] HCG ( test) Ql (U)o n 12-10-2023 Beta HCG ( test) Ql (U) Negative Normal NEG [facility] Comment on above: Performed By: #### C BCA, CMP #### [facility] ([id number]) [address] [place] [address] 55629 LIPASEon 12-10-2023 Lipase [Catalytic activity/Vol] 98 U/L High 17-40 [facility] Comment on above: Performed By: #### C BCA, CMP #### [facility] ([id number]) [address] [place] [address] 77242 Lactate (P jaime) [Moles/Vol]o n 12-10-2023 LACTATE W/REFLEX 0.6 mmol/L Normal 0.4-2.0 [facility] Comment on above: Result Comment: Result did not trigger repeat Lactate, re-order if needed. Performed By: #### C BCA, CMP #### [facility] ([id number]) [address] [place] [address] 34079 TROPONIN Ion 12-10-2023 Troponin I.cardiac [Mass/Vol] 0.02 ng/mL Normal 0.00-0.04 [facility] Comment on above: Performed By: #### C BCA, CMP #### [facility] ([id number]) [address] [place] [address] 04329 URN MACROSCOPIC NURon 2023 BILIRUBIN JUNIOR Negative Normal NEG [facility] Comment on above: Performed By: #### C BCA, CMP #### [facility] ([id number]) [address] [place] [address] 09350 BLOOD/HGB JUNIOR Large Abnormal NEG [facility] Comment on above: Performed By: #### C BCA, CMP #### [facility] ([id number]) [address] [place] [address] [place] [address] GLUCOSE JUNIOR Negative Normal NEG [facility] Comment on above: Performed By: #### C BCA, CMP #### [facility] ([id number]) [address] [place] [address] [place] [address] KETONES JUNIOR Trace Abnormal NEG [facility] Comment on above: Performed By: #### C BCA, CMP #### [facility] ([id number]) [address] [place] [address] 75805 LEUKOCYTE ESTERASE JUNIOR Negative Normal NEG [facility] Comment on above: Performed By: #### C BCA, CMP #### [facility] ([id number]) [address] [place] [address] [place] [address] NITRITE JUNIOR Negative Normal NEG [facility] Comment on above: Performed By: #### C BCA, CMP #### [facility] ([id number]) [address] [place] [address] PH JUNIOR 6.0 Normal 5.0-8.5 [facility] Comment on above: Performed By: #### C BCA, CMP #### [facility] ([id number]) [address] [place] [address] 13374 PROTEIN JUNIOR Negative Normal NEG [facility] Comment on above: Performed By: #### C BCA, CMP #### [facility] ([id number]) [address] [place] [address] 51152 SPECIFIC GRAVITY JUNIOR >=1.030 Normal 1.003-1.035 [facility] Comment on above: Performed By: #### C BCA, CMP #### [facility] ([id number]) [address] [place] [address] 45067 UROBILINOGEN JUNIOR 0.2 eu/dL Normal <1.1 [facility] Comment on above: Performed By: #### C BCA, CMP #### [facility] ([id number]) [address] [place] [address] 03687 XR CHEST 1 VWon 12-10-2023 XR CHEST [...] Gates MD on 12/10/2023 1:59 AM Normal [facility] Orders Onlyon 11-23-2023 Orders Only [id number] Madyson Moore 1980 F Date Provider Department Center 11/23/2023 RUKHSANA ESPINOZA MP PAIN [facility] Family History Problem Relation Age of Onset Brain cancer Mother Breast cancer Sister Kidney cancer Maternal Grandmother Prostate cancer Paternal Grandfather Cancer Father Cancer Sister Family Status - Relation Status Age at Mother Sister Maternal Grandmother Paternal Grandfather Father Sister Normal [facility] H. pylori Ag IA Ql (Stl)on 0 11-19-2023 H. PYLORI ANTG STOOL See Below Normal [facility] Comment on above: Result Comment: NOTE TEST RESULT FLAG UNIT REF.RANGE ---- EIA Test See Below Negative for H. Pylori antigen by EIA H.PYLORI EIA RESULT Negative for Helicobacter pylori antigen by EIA SOURCE: STOOL Test Performed By: [facility] [employer] [address] [place] [address] [employer]: Anurag Seth III, M.D. CLIA #[id number] Performed By: #### C BCA, CMP #### [facility] ([id number]) [address] [place] [address] 96726 Gastrin [Mass/Vol]on 024 GASTRIN 62.9 pg/mL Normal <115.0 [facility] Comment on above: Result Comment: NOTE The Gastrin test was performed using the Siemens Immulite chemiluminescent immunometric method. Results obtained with different assay methods or kits cannot be used interchangeably. Test Performed By: [facility] [employer] [address] [place] [address] [employer]: Anurag Seth III, M.D. CLIA #[id number] Performed By: #### 2 333-3 #### [facility] ([id number]) [address] [place], [place] [address] Transfer Inon 11-05-2023 Transfer In [id number] [id number] Normal [facility] Follow-Upon 10-28-2023 Follow-Up [id number] Madyson Moore ma 1980 F Date Provider Department Center 10/28/2023 170-RUKHSANA MILLER MP PAIN [facility] Family History Problem Relation Age of Onset Brain cancer Mother Breast cancer Sister Kidney cancer Maternal Grandmother Prostate cancer Paternal Grandfather Cancer Father Cancer Sister Family Status - Relation Status Age at Mother Sister Maternal Grandmother Paternal Grandfather Father Sister Level of Service:25218 ND OFFICE/OUTPATIENT ESTABLISHED LOW MDM 20 MIN Reason for Visit and Comments: Knee Pain [281996] - left Normal [facility] 36on 10-20-2023 36 Approving, but needs appt for additional refills. Normal [facility] Orders Onlyon 10-20-2023 Orders Only [id number] Madyson Moore 1980 F Date Provider Department Center 10/20/202376124-RNBZMITCHELL APARICIO MP PROC [facility] Family History Problem Relation Age of Onset Brain cancer Mother Breast cancer Sister Kidney cancer Maternal Grandmother Prostate cancer Paternal Grandfather Cancer Father Cancer Sister Family Status - Relation Status Age at Mother Sister Maternal Grandmother Paternal Grandfather Father Sister Normal [facility] Orders Onlyon 10-19-2023 Orders Only [id number] Madyson Moore 1980 F Date Provider Department Center 10/19/202312073-COGENU, ELAINA [facility]HEUM [facility] Family History Problem Relation Age of Onset Brain cancer Mother Breast cancer Sister Kidney cancer Maternal Grandmother Prostate cancer Paternal Grandfather Cancer Father Cancer Sister Family Status - Relation Status Age at Mother Sister Maternal Grandmother Paternal Grandfather Father Sister Normal [facility] 36on 10-18-2023 36 Patient is calling f or medication refill to be sent to pharmacy. Thank you Normal [facility] BASIC METABOLIC PANLon 10-14 Anion gap [Moles/Vol] 10 mmol/L Normal 5-15 [facility] Comment on above: Performed By: #### B MP, LIVR, CBCA, 3040-3 #### [facility] ([id number]) [address] [place] [address] 77055 Calcium [Mass/Vol] 8.6 mg/dL Normal 8.5-10.5 [facility] Comment on above: Performed By: #### B MP, LIVR, CBCA, 3040-3 #### [facility] ([id number]) [address] [place] [address] 81093 Chloride [Moles/Vol] 100 mmol/L Normal 98-109 [facility] Comment on above: Performed By: #### B MP, LIVR, CBCA, 3039-3 #### [facility] ([id number]) [address] [place] [address] 62754 CO2 [Moles/Vol] 27 mmol/L Normal 22-32 [facility] Comment on above: Performed By: #### B RHIANNA, LIVR, CBCA, 3 #### [facility] ([id number]) [address] [place] [address] 51870 Creatinine [Mass/Vol] 0.76 mg/dL Normal 0.40-1.00 [facility] Comment on above: Result Comment: METH OD TRACEABLE TO IDMS STANDARD Performed By: #### B RHIANNA, LIVR, CBCA, 3039-3 #### [facility] ([id number]) [address] [place] [address] 77327 eGFR (CKD-EPI) NON-RACE DEPENDENT >90 Normal >59 [facility] Comment on above: Result Comment: Reported eGFR is based on the CKD-EPI 2020 equation that does not use a race coefficient. Performed By: #### B MP, LIVR, CBCA, 0-3 #### [facility] ([id number]) [address] [place] [address] 57455 Glucose [Mass/Vol] 84 mg/dL Normal 65-99 [facility] Comment on above: Performed By: #### B MP, LIVR, CBCA, 3039-3 #### [facility] ([id number]) [address] [place] [address] 01580 Potassium [Moles/Vol] 3.5 mmol/L Normal 3.5-5.0 [facility] Comment on above: Performed By: #### B MP, LIVR, CBCA, 3039-3 #### [facility] ([id number]) [address] [place] [address] 15105 Sodium [Moles/Vol] 137 mmol/L Normal 134-146 [facility] Comment on above: Performed By: #### B MP, LIVR, CBCA, 3039-12 #### [facility] ([id number]) [address] [place] [address] 90219 Urea nitrogen [Mass/Vol] 16 mg/dL Normal 5-23 [facility] Comment on above: Performed By: #### B MP, LIVR, CBCA, 3039-12 #### [facility] ([id number]) [address] [place] [address] 84857 CBC AND AUTO DIFFon 10-14-19 24 ABSOLUTE BASOPHIL 0.0 X10E9/L Normal 0.0-0.2 [facility] Comment on above: Performed By: #### B MP, LIVR, CBCA, 3 #### [facility] ([id number]) [address] [place] [address] 87082 ABSOLUTE NEUTROPHIL 3.6 X10E9/L Normal 1.5-6.6 [facility] Comment on above: Performed By: #### B MP, LIVR, CBCA, 3039-12 #### [facility] ([id number]) [address] [place] [address] 51134 Basophils/100 WBC (Bld) 0.2 % Normal [facility] Comment on above: Performed By: #### B MP, LIVR, CBCA, 3 #### [facility] ([id number]) [address] [place] [address] 96311 Eosinophils (Bld) [#/Vol] 0.1 10*3/uL Normal 0.0-0.4 [facility] Comment on above: Performed By: #### B MP, LIVR, CBCA, 3039-3 #### [facility] ([id number]) [address] [place] [address] 61354 Eosinophils/100 WBC (Bld) 1.7 % Normal [facility] Comment on above: Performed By: #### B MP, LIVR, CBCA, 3 #### [facility] ([id number]) [address] [place] [address] 89717 Erythrocyte distribution width (RBC) [Ratio] 14.0 % Normal 11.5-15.0 [facility] Comment on above: Performed By: #### B MP, LIVR, CBCA, 3 #### [facility] ([id number]) [address] [place] [address] 13067 Hematocrit (Bld) [Volume fraction] 35.0 % Normal 35-47 [facility] Comment on above: Performed By: #### B MP, LIVR, CBCA, 3039-3 #### [facility] ([id number]) [address] [place] [address] 65153 Hemoglobin (Bld) [Mass/Vol] 11.8 g/dL Normal 11.7-15.5 [facility] Comment on above: Performed By: #### B MP, LIVR, CBCA, 3039-3 #### [facility] ([id number]) [address] [place] [address] 10096 Lymphocytes (Bld) [#/Vol] 3.0 10*3/uL Normal 1.0-3.5 [facility] Comment on above: Performed By: #### B MP, LIVR, CBCA, 3039-12 #### [facility] ([id number]) [address] [place] [address] 46688 Lymphocytes/100 WBC (Bld) 41.6 % Normal [facility] Comment on above: Performed By: #### B MP, LIVR, CBCA, 3039-12 #### [facility] ([id number]) [address] [place] [address] 14630 MCH (RBC) [Entitic mass] 29.6 pg Normal 27-34 [facility] Comment on above: Performed By: #### B MP, LIVR, CBCA, 3039-12 #### [facility] ([id number]) [address] [place] [address] 26868 MCHC (RBC) [Mass/Vol] 33.8 g/dL Normal 32-36 [facility] Comment on above: Performed By: #### B MP, LIVR, CBCA, 3039-12 #### [facility] ([id number]) [address] [place] [address] 84629 MCV (RBC) [Entitic vol] 88 fL Normal 80-100 [facility] Comment on above: Performed By: #### B MP, LIVR, CBCA, 3039-12 #### [facility] ([id number]) [address] [place] [address] 33679 Monocytes (Bld) [#/Vol] 0.4 10*3/uL Normal 0-0.9 [facility] Comment on above: Performed By: #### B MP, LIVR, CBCA, 3039-12 #### [facility] ([id number]) [address] [place] [address] 07663 Monocytes/100 WBC (Bld) 5.6 % Normal [facility] Comment on above: Performed By: #### B MP, LIVR, CBCA, 3039-12 #### [facility] ([id number]) [address] [place] [address] 38426 Neutrophils/100 WBC (Bld) 50.9 % Normal [facility] Comment on above: Performed By: #### B MP, LIVR, CBCA, 3040-3 #### [facility] ([id number]) [address] [place] [address] 72412 Platelet mean volume (Bld) [Entitic vol] 7.5 fL Normal 7-12 [facility] Comment on above: Performed By: #### B MP, LIVR, CBCA, 3040-3 #### [facility] ([id number]) [address] [place] [address] 83792 Platelets (Bld) [#/Vol] 256 10*3/uL Normal 150-450 [facility] Comment on above: Performed By: #### B MP, LIVR, CBCA, 3040-3 #### [facility] ([id number]) [address] [place] [address] 45643 RBC COUNT 3.99 X10E12/L Normal 3.80-5.20 [facility] Comment on above: Performed By: #### B MP, LIVR, CBCA, 3040-3 #### [facility] ([id number]) [address] [place] [address] 56144 WBC (Bld) [#/Vol] 7.1 10*3/uL Normal 4.0-11.0 [facility] Comment on above: Performed By: #### B MP, LIVR, CBCA, 3040-3 #### [facility] ([id number]) [address] [place] [address] ABDOMEN AND PELVIS W CONT on [...] Awad MD on 10/14/2023 12:24 AM Normal [facility] LIPASEon 10-14-2023 Lipase [Catalytic activity/Vol] 42 U/L High 17-40 [facility] Comment on above: Performed By: #### B MP, LIVR, CBCA, 3040-3 #### [facility] ([id number]) [address] [place] [address] LIVER PANELon 10-14-2023 Albumin [Mass/Vol] 4.1 g/dL Normal 3.2-5.3 [facility] Comment on above: Performed By: #### B MP, LIVR, CBCA, 3 #### [facility] ([id number]) [address] [place] [address] 69377 ALP [Catalytic activity/Vol] 99 U/L Normal 39-130 [facility] Comment on above: Performed By: #### B MP, LIVR, CBCA, 3039-3 #### [facility] ([id number]) [address] [place] [address] 61786 ALT [Catalytic activity/Vol] 14 U/L Normal 0-31 [facility] Comment on above: Performed By: #### B MP, LIVR, CBCA, 3 #### [facility] ([id number]) [address] [place] [address] 69658 AST [Catalytic activity/Vol] 20 U/L Normal 0-41 [facility] Comment on above: Performed By: #### B MP, LIVR, CBCA, 3 #### [facility] ([id number]) [address] [place] [address] 66074 Bilirubin [Mass/Vol] 0.8 mg/dL Normal 0.3-1.2 [facility] Comment on above: Performed By: #### B MP, LIVR, CBCA, 3 #### [facility] ([id number]) [address] [place] [address] 69453 Bilirubin.direct [Mass/Vol] 0.1 mg/dL Normal 0.0-0.4 [facility] Comment on above: Performed By: #### B MP, LIVR, CBCA, 3039-3 #### [facility] ([id number]) [address] [place] [address] 36217 Protein [Mass/Vol] 7.4 g/dL Normal 6.0-8.0 [facility] Comment on above: Performed By: #### B MP, LIVR, CBCA, 3040-3 #### [facility] ([id number]) [address] [place] [address] 30195 Pre-Certification Formon Pre-Certification Form [id number] Normal [facility] CBC AND AUTO DIFFon 10-13-19 24 ABSOLUTE BASOPHIL 0.0 X10E9/L Normal 0.0-0.2 [facility] Comment on above: Performed By: #### C GALEN, CMP #### [facility] ([id number]) [address] [place] [address] 70007 ABSOLUTE NEUTROPHIL 4.5 X10E9/L Normal 1.5-6.6 [facility] Comment on above: Performed By: #### C GALEN, CMP #### [facility] ([id number]) [address] [place] [address] 79906 Basophils/100 WBC (Bld) 0.2 % Normal [facility] Comment on above: Performed By: #### C GALEN, CMP #### [facility] ([id number]) [address] [place] [address] 91814 Eosinophils (Bld) [#/Vol] 0.1 10*3/uL Normal 0.0-0.4 [facility] Comment on above: Performed By: #### C BCA, CMP #### [facility] ([id number]) [address] [place] [address] 70605 Eosinophils/100 WBC (Bld) 1.1 % Normal [facility] Comment on above: Performed By: #### C BCA, CMP #### [facility] ([id number]) [address] [place] [address] 66916 Erythrocyte distribution width (RBC) [Ratio] 13.8 % Normal 11.5-15.0 [facility] Comment on above: Performed By: #### C BCA, CMP #### [facility] ([id number]) [address] [place] [address] 08530 Hematocrit (Bld) [Volume fraction] 36.9 % Normal 35-47 [facility] Comment on above: Performed By: #### C BCA, CMP #### [facility] ([id number]) [address] [place] [address] 21269 Hemoglobin (Bld) [Mass/Vol] 12.5 g/dL Normal 11.7-15.5 [facility] Comment on above: Performed By: #### C GALEN, CMP #### [facility] ([id number]) [address] [place] [address] 48149 Lymphocytes (Bld) [#/Vol] 3.5 10*3/uL Normal 1.0-3.5 [facility] Comment on above: Performed By: #### C GALEN, CMP #### [facility] ([id number]) [address] [place] [address] 78148 Lymphocytes/100 WBC (Bld) 40.4 % Normal [facility] Comment on above: Performed By: #### C GALEN, CMP #### [facility] ([id number]) [address] [place] [address] 78384 MCH (RBC) [Entitic mass] 29.2 pg Normal 27-34 [facility] Comment on above: Performed By: #### C BCA, CMP #### [facility] ([id number]) [address] [place] [address] [id number] MCHC (RBC) [Mass/Vol] 33.8 g/dL Normal 32-36 [facility] Comment on above: Performed By: #### C BCA, CMP #### [facility] ([id number]) [address] [place] [address] [phone] MCV (RBC) [Entitic vol] 86 fL Normal 80-100 [facility] Comment on above: Performed By: #### C GALEN, CMP #### [facility] ([id number]) [address] [place] [address] [phone] Monocytes (Bld) [#/Vol] 0.5 10*3/uL Normal 0-0.9 [facility] Comment on above: Performed By: #### C GALEN, CMP #### [facility] ([id number]) [address] [place] [address] 34563 Monocytes/100 WBC (Bld) 6.2 % Normal [facility] Comment on above: Performed By: #### C GALEN, CMP #### [facility] ([id number]) [address] [place] [address] [id number] Neutrophils/100 WBC (Bld) 52.1 % Normal [facility] Comment on above: Performed By: #### C GALEN, CMP #### [facility] ([id number]) [address] [place] [address] [id number] Platelet mean volume (Bld) [Entitic vol] 7.8 fL Normal 7-12 [facility] Comment on above: Performed By: #### C GALEN, CMP #### [facility] [facility] ([id number]) [address] [place] [address] 19323 Platelets (Bld) [#/Vol] 293 10*3/uL Normal 150-450 [facility] Comment on above: Performed By: #### C GALEN, CMP #### [facility] ([id number]) [address] [place] [address] 75108 RBC COUNT 4.26 X10E12/L Normal 3.80-5.20 [facility] Comment on above: Performed By: #### C BCA, CMP #### [facility] ([id number]) [address] [place] [address] 20864 WBC (Bld) [#/Vol] 8.7 10*3/uL Normal 4.0-11.0 [facility] Comment on above: Performed By: #### C BCA, CMP #### [facility] ([id number]) [address] [place] [address] 82386 COMPREHENSIVE METABOLIC PANE Nico 10-13-2023 Albumin [Mass/Vol] 4.4 g/dL Normal 3.2-5.3 [facility] Comment on above: Performed By: #### C BCA, CMP #### [facility] ([id number]) [address] [place] [address] 43162 ALP [Catalytic activity/Vol] 104 U/L Normal 39-130 [facility] Comment on above: Performed By: #### C BCA, CMP #### [facility] ([id number]) [address] [place] [address] 63466 ALT [Catalytic activity/Vol] 14 U/L Normal 0-31 [facility] Comment on above: Performed By: #### C BCA, CMP #### [facility] ([id number]) [address] [place] [address] 28079 Anion gap [Moles/Vol] 9 mmol/L Normal 5-15 [facility] Comment on above: Performed By: #### C BCA, CMP #### [facility] ([id number]) [address] [place] [address] 95048 AST [Catalytic activity/Vol] 18 U/L Normal 0-41 [facility] Comment on above: Performed By: #### C BCA, CMP #### [facility] ([id number]) [address] [place] [address] 26098 Bilirubin [Mass/Vol] 0.8 mg/dL Normal 0.3-1.2 [facility] Comment on above: Performed By: #### C BCA, CMP #### [facility] ([id number]) [address] [place] [address] 44424 Calcium [Mass/Vol] 9.0 mg/dL Normal 8.5-10.5 [facility] Comment on above: Performed By: #### C BCA, CMP #### [facility] ([id number]) [address] [place] [address] 06758 Chloride [Moles/Vol] 102 mmol/L Normal 98-109 [facility] Comment on above: Performed By: #### C BCA, CMP #### [facility] ([id number]) [address] [place] [address] 39540 CO2 [Moles/Vol] 28 mmol/L Normal 22-32 [facility] Comment on above: Performed By: #### C BCA, CMP #### [facility] ([id number]) [address] [place] [address] 03390 Creatinine [Mass/Vol] 0.74 mg/dL Normal 0.40-1.00 [facility] Comment on above: Result Comment: METH OD TRACEABLE TO IDMS STANDARD Performed By: #### C BCA, CMP #### [facility] ([id number]) [address] [place] [address] 05816 eGFR (CKD-EPI) NON-RACE DEPENDENT >90 Normal >59 [facility] Comment on above: Result Comment: Reported eGFR is based on the CKD-EPI 2021 equation that does not use a race coefficient. Performed By: #### C BCA, CMP #### [facility] ([id number]) [address] [place] [address] 02779 Glucose [Mass/Vol] 98 mg/dL Normal 65-99 [facility] Comment on above: Performed By: #### C BCA, CMP #### [facility] ([id number]) [address] [place] [address] 87898 Potassium [Moles/Vol] 3.7 mmol/L Normal 3.5-5.0 [facility] Comment on above: Performed By: #### C BCA, CMP #### [facility] ([id number]) [address] [place] [address] 05866 Protein [Mass/Vol] 7.9 g/dL Normal 6.0-8.0 [facility] Comment on above: Performed By: #### C BCA, CMP #### [facility] ([id number]) [address] [place] [address] 88849 Sodium [Moles/Vol] 139 mmol/L Normal 134-146 [facility] Comment on above: Performed By: #### C BCA, CMP #### [facility] ([id number]) [address] [place] [address] 13332 Urea nitrogen [Mass/Vol] 17 mg/dL Normal 5-23 [facility] Comment on above: Performed By: #### C BCA, CMP #### [facility] ([id number]) [address] [place] [address] ABDOMEN AND PELVIS WO CON Ton 10-13-2023 CT ABDOMEN AND PELVIS WO CONT CT [...] Awad MD on 10/13/2023 11:00 PM Normal [facility] URN MACROSCOPIC NURon 2023 BILIRUBIN JUNIOR Negative Normal NEG [facility] Comment on above: Performed By: #### N UM #### [facility] ([id number]) [address] [place] [address] 14815 BLOOD/HGB JUNIOR Large Abnormal NEG [facility] Comment on above: Performed By: #### N UM #### [facility] ([id number]) [address] [place] [address] 27121 GLUCOSE JUNIOR Negative Normal NEG [facility] Comment on above: Performed By: #### N UM #### [facility] ([id number]) [address] [place] [address] 01335 KETONES JUNIOR Negative Normal NEG [facility] Comment on above: Performed By: #### N UM #### [facility] ([id number]) [address] [place] [address] 97863 LEUKOCYTE ESTERASE JUNIOR Trace Abnormal NEG [facility] Comment on above: Performed By: #### N UM #### [facility] ([id number]) [address] [place] [address] 00539 NITRITE JUNIOR Negative Normal NEG [facility] Comment on above: Performed By: #### N UM #### [facility] ([id number]) [address] [place] [address] 27575 PH JUNIOR 7.0 Normal 5.0-8.5 [facility] Comment on above: Performed By: #### N UM #### [facility] ([id number]) [address] [place] [address] 81187 PROTEIN JUNIOR Negative Normal NEG [facility] Comment on above: Performed By: #### N UM #### [facility] ([id number]) [address] [place] [address] 84123 SPECIFIC GRAVITY JUNIOR 1.025 Normal 1.003-1.035 [facility] Comment on above: Performed By: #### N UM #### [facility] ([id number]) [address] [place] [address] 49844 UROBILINOGEN JUNIOR 1.0 eu/dL Normal <1.1 [facility] Comment on above: Performed By: #### N UM #### [facility] ([id number]) [address] [place] [address] 69823 Consent for Procedure/Surger yon 10-12-2023 Consent for Procedure/Surgery [id number]#1.00TIFF Normal [facility] Consent for Treatmenton Consent for Treatment [id number]#1.00TIFF Normal [facility] Insurance Correspondenceon 0 10-12-2023 Insurance Correspondence [id number]#1.00TIFF Normal [facility] IntraOperative Documentson 0 10-12-2023 IntraOperative Documents [id number]#1.00TIFF Normal [facility] IntraOperative Documents [id number]#1.00TIFF Normal [facility] Main OR Intraoperative Recor don 10-12-2023 Main OR Intraoperative Record IntraOp Document Type FTURO Summary Primary Physician: Diana HAWKINS MD Finalized Date/Time: 10/12/23 10:37:58 Pt. Name: ELVI MOORE /Sex: 1980 Female Med Rec #: [id number] Physician: Diana HAWKINS MD Financial #: [id number] Pt. Type: O Room/Bed: / Admit/Disch: 10/12/23 09:34:46 - Institution: Case Times FTURO Entry 1 Patient Times In Room 10/12/23 10:29:00 Out Room 10/12/23 10:43:00 Procedure Times Start 10/12/23 10:32:00 Stop 10/12/23 10:38:00 Anesthesia Times Last Modified By: Ashish ROBLEDO, JATIN, Kesha 10/12/23 10:35:54 Case Attendance FTURO Entry 1 Entry 2 Entry 3 Case Attendee Diana HAWKINS MD, Asia Hinojosa RN, JATIN, Kesha Role Performed Surgeon - Primary Scrub - Primary Employee Relations Assistant - Primary Time In 10/12/23 10:29:00 10/12/23 10:29:00 10/12/23 10:29:00 Time Out 10/12/23 10:43:00 10/12/23 10:43:00 10/12/23 10:43:00 Procedure CYSTOSCOPY LOCAL WITH CYSTOSCOPY LOCAL WITH CYSTOSCOPY LOCAL WITH STENT REMOVAL(Left) STENT REMOVAL(Left) STENT REMOVAL(Left) Comments Last Modified By: Ashish RN, CNOR, Ashish ROBLEDO, TRACEYOR, Ashish ROBLEDO, TRACEYOR, [...] JATIN Hinojosa RN, Ruthann 10/12/23 10:37 Normal [facility] Main OR Preoperative Recordo n 10-12-2023 Main OR Preoperative Record Holding Area Document Type FTURO Summary Primary Physician: Diana HAWKINS MD Finalized Date/Time: 10/12/23 10:32:11 Pt. Name: ELVI MOORE /Sex: 1980 Female Med Rec #: [id number] Physician: Diana HAWKINS MD Financial #: [id number] Pt. Type: O Room/Bed: / Admit/Disch: 10/12/23 [...] Vicki Figueroa RN 10/12/23 09:49:17 Finalized By: Ashish ROBLEDO, Kesha STEINER Document Signatures Signed By: Vicki Figueroa RN 10/12/23 09:49 Vicki Figueroa RN 10/12/23 09:54 JATIN Hinojosa RN, Ruthann 10/12/23 10:32 Normal [facility] Operative Reporton Operative Report Patient: DIEGO MOORE [...] procedure well and was subsequently discharged home. Normal [facility] Comment on above: Result Comment: Elec tronically Signed By: ROSS GENTILE, Diana Goss\.br\Date and Time Signed: 10/12/23 10:38 EST Outpatient Surgery Discharge Instructionon 10-12-2023 Outpatient Surgery Discharge Instruction [id number]#1.00TIFF Normal [facility] Formson 10-08-2023 Forms [id number]#1.00TIFF Normal [facility] ED Note-Physicianon 10-07-20 ED Note-Physician [id number]#1.00TIFF Normal [facility] Formson 10-07-2023 Forms [id number]#1.00TIFF Normal [facility] Lab Reportson 10-07-2023 Lab Reports [id number]#1.00TIFF [facility] RAD - CT Reporton 10-07-2023 RAD - CT Report [id number]#1.00TIFF [facility] Lab Reportson 09-27-2023 Lab Reports [id number]#1.00TIFF [facility] OARRS Reporton 09-27-2023 OARRS Report [id number]#1.00TIFF [facility] Pre-Certification Formon Pre-Certification Form [id number]#1.00TIFF [facility] Provider Letteron 09-27-2023 Provider Letter (Inserted Image. Darleen ble to display) September 27, 2023 [place] [address] : 1980 To Whom It May Concern, Please excuse above patient from work. Date of Illness: From: 09/16/2023 To: 09/28/2023 May Return to Work On:09/29/2023 Restrictions: No Restrictions Comments: Any questions, please call our office Sincerely, [facility] [address], [place] [address] [facility] Provider Letter (Inserted Image. Darleen ble to display) September 27, 2023 [place] [address] : 1980 To Whom It May Concern, Please excuse above patient from work. Date of Illness: From: 09/16/2023 To: 09/28/2023 May Return to Work On: 09/29/2023 Restrictions: No Restrictios Comments: _ Sincerely, [facility] [address] [place] [address] [place] [address] [facility] Formson 09-22-2023 Forms [id number]#1.00TIFF [facility] RAD - MISCon 09-21-2023 RAD - MISC [id number]#1.00TIFF [facility] Provider Letteron 09-20-2023 Provider Letter (Inserted Image. Darleen ble to display) September 20, 2023 [address] [place] [address] : 1980 To Whom It May Concern, Please excuse above patient from work. Date of Illness: From: 09/16/23 To: 09/21/23 May Return to Work On: 09/22/23 Restrictions: N/A Comments: Patient may return to work 09/22/23. Patient had a surgical procedure done 09/16/[address] Diana Hawkins. Sincerely, [facility] ECG 12-Leadon 09-17-2023 ECG 12-Lead [id number]#1.00TIFF [facility] Lab Reportson 09-17-2023 Lab Reports [id number]#1.00TIFF [facility] RAD - CT Reporton 09-17-2023 RAD - CT Report [id number]#1.00TIFF [facility] RAD - MISCon 09-17-2023 RAD - MISC [id number]#1.00TIFF Normal [facility] RAD - Ultrasound Reporton RAD - Ultrasound Report [id number]#1.00TIFF Normal [facility] Operative Reporton Operative Report [id number]#1.00TIFF Normal [facility] ED Note-Physicianon 09-14-20 23 ED Note-Physician [id number]#1.00TIFF [facility] Insurance Correspondenceon 1 11-15-2022 Insurance Correspondence [id number]#1.00TIFF [facility] RAD - CT Reporton 09-14-2023 RAD - CT Report [id number]#1.00TIFF [facility] RAD - CT Report [id number]#1.00TIFF [facility] Ambulatory Visit Summaryon 1 11-14-2022 Ambulatory Visit Summary ELVI MOORE :1980 Visit Date:09/13/2023 Ambulatory Visit Instructions Your Diagnosis Kidney stone Gross hematuria Left flank pain Tests Performed Urnls Dip Stick Auto w/o Microscopy POC 94184 Your Care Team Attending Physician - ROSS [...] Where: [facility] [address], [place] [address] [phone] Medications What How Much When Instructions Unchanged [...] Urnls Dip Stick Auto w/o Microscopy POC 53263 (09/13/2023) Bilirubin Urine Dipstick - Negative Blood Urine Dipstick - 2+ Moderate Glucose Urine Dipstick - Negative Ketones Urine Dipstick - Negative Leukocytes Urine Dipstick - Negative Nitrite Urine Dipstick - Negative Protein Urine Dipstick - Negative Specific Grandy Urine Dipstick - 1.025 Urine Appearance Urine [...] including vitamins, herbs, eye drops, creams, and xzxa-etj-ttzudma medicines. ? Any problems you or family members have had with anesthetic medicines. ? Any blood disorders you have. ? Any surgeries you have had. ? Any m (more content not included)... Normal [facility] Consent for Procedure/Surger yon 09-13-2023 Consent for Procedure/Surgery [id number]#1.00TIFF [facility] 36on 09-08-2023 36 Patient seen in the ER for a large kidney stone. Was prescribed Oxycodone medication for pain discomfort. Patient would like to know if this will be ok for her to get from pharmacy. Please advise [phone]. Thank you Normal [facility] Consultation Noteon 08-23-20 23 Consultation Note [id number]#1.00TIFF [facility] Lab Reportson 08-23-2023 Lab Reports [id number]#1.00TIFF Normal [facility] Consultation Noteon 08-20-20 Consultation Note [id number]#1.00TIFF Normal [facility] Follow-Upon 08-19-2023 Follow-Up [id number] Madyson Moore ma 1980 F Date Provider Department Center 08/19/2023 [facility] Family History Problem Relation Age of Onset Brain cancer Mother Breast cancer Sister Kidney cancer Maternal Grandmother Prostate cancer Paternal Grandfather Cancer Father Cancer Sister Family Status - Relation Status Age at Mother Sister Maternal Grandmother Paternal Grandfather Father Sister Level of Service:18118 ND OFFICE/OUTPATIENT ESTABLISHED MOD MDM 30-39 MIN Reason for Visit and Comments: Follow-up [391476] - Chronic Left Knee Pain Normal [facility] Ferritinon 05-28-2023 Ferritin [Mass/Vol] 4.9 ng/mL Low 11.0-306.8 [facility] Comment on above: Result Comment: PERF ORMED BY: [facility] [address] [place] [address] PATHOLOGIST MARKETING PROJECT SPECIALIST MELISSA WAGNER M.D. Performed By: #### S CAN CBC, JANESSA, FE and TIBC #### [facility] [address] Iron and TIBC Profileon 05-11 % Iron Saturation 2.5 % Low 20-50 [facility] Comment on above: Performed By: #### S CAN CBC, JANESSA, FE and TIBC #### [facility] [address] [place] [id number] [place] Iron [Mass/Vol] 13 ug/dL Low 50-212 [facility] Comment on above: Performed By: #### S CAN CBC, JANESSA, FE and TIBC #### [facility] [address] [place] [id number] [facility] Total Iron Binding Capacity 517 ug/dL High 255-450 [facility] Comment on above: Performed By: #### S CAN CBC, JANESSA, FE and TIBC #### [address] Transferrin [Mass/Vol] 369 mg/dL High 203-362 [facility] Comment on above: Performed By: #### S CAN CBC, JANESSA, FE and TIBC #### [address] Scan and CBCon 05-28-2023 Anisocytosis Ql (Bld) Marked Normal [facility] Comment on above: Performed By: #### S CAN CBC, JANESSA, FE and TIBC #### [address] Basophils (Bld) [#/Vol] 0.0 10*3/uL Normal 0.0-0.2 [facility] Comment on above: Performed By: #### S CAN CBC, JANESSA, FE and TIBC #### [address] Basophils/100 WBC (Bld) 0.3 % Normal . [facility] Comment on above: Performed By: #### S CAN CBC, JANESSA, FE and TIBC #### [address] Eosinophils (Bld) [#/Vol] 0.0 10*3/uL Normal 0.0-0.45 [facility] Comment on above: Performed By: #### S CAN CBC, JANESSA, FE and TIBC #### [address] Eosinophils/100 WBC (Bld) 0.6 % Normal . [facility] Comment on above: Performed By: #### S CAN CBC, JANESSA, FE and TIBC #### [address] Erythrocyte distribution width (RBC) [Ratio] 20.1 % High 11.9-15.3 [facility] Comment on above: Performed By: #### S CAN CBC, JANESSA, FE and TIBC #### [address] Hematocrit (Bld) [Volume fraction] 28.6 % Low 34.0-46.4 [facility] Comment on above: Performed By: #### S CAN CBC, JANESSA, FE and TIBC #### [address] Hemoglobin (Bld) [Mass/Vol] 8.9 g/dL Low 11.8-15.4 [facility] Comment on above: Performed By: #### S CAN CBC, JANESSA, FE and TIBC #### [address] Hypochromasia Moderate Normal [facility] Comment on above: Performed By: #### S CAN CBC, JANESSA, FE and TIBC #### [address] Lymphocytes (Bld) [#/Vol] 2.6 10*3/uL Normal 1.00-4.8 [facility] Comment on above: Performed By: #### S CAN CBC, JANESSA, FE and TIBC #### [address] Lymphocytes/100 WBC (Bld) 37.7 % Normal . [facility] Comment on above: Performed By: #### S CAN CBC, JANESSA, FE and TIBC #### [address] MCH (RBC) [Entitic mass] 20.5 pg Low 24.7-34.3 [facility] Comment on above: Performed By: #### S CAN CBC, JANESSA, FE and TIBC #### [address] MCV (RBC) [Entitic vol] 65.8 fL Low 80-100 [facility] Comment on above: Performed By: #### S CAN CBC, JANESSA, FE and TIBC #### [address] Mean Corpuscular HGB Conc 31.1 g/dL Low 32.0-35.0 [facility] Comment on above: Performed By: #### S CAN CBC, JANESSA, FE and TIBC #### [address] Microcytosis Marked Normal [facility] Comment on above: Performed By: #### S CAN CBC, JANESSA, FE and TIBC #### [address] Monocytes (Bld) [#/Vol] 0.4 10*3/uL Normal 0.0-0.8 [facility] Comment on above: Performed By: #### S CAN CBC, JANESSA, FE and TIBC #### [address] Monocytes/100 WBC (Bld) 6.3 % Normal . [facility] Comment on above: Performed By: #### S CAN CBC, JANESSA, FE and TIBC #### [address] Neutrophils (Bld) [#/Vol] 3.8 10*3/uL Normal 1.8-7.7 [facility] Comment on above: Performed By: #### S CAN CBC, JANESSA, FE and TIBC #### [address] Neutrophils/100 WBC (Bld) 55.1 % Normal . [facility] Comment on above: Performed By: #### S CAN CBC, JANESSA, FE and TIBC #### [address] NRBC% 0.1 /100{WBC} Normal 0-0.5 [facility] Comment on above: Performed By: #### S CAN CBC, JANESSA, FE and TIBC #### [address] Ovalocytes Slight Normal [facility] Comment on above: Performed By: #### S CAN CBC, JANESSA, FE and TIBC #### [address] Platelet Estimate Normal Normal Normal [facility] Comment on above: Performed By: #### S CAN CBC, JANESSA, FE and TIBC #### [address] Platelet mean volume (Bld) [Entitic vol] 8.7 fL Normal 6.3-10.7 [facility] Comment on above: Performed By: #### S CAN CBC, JANESSA, FE and TIBC #### [address] Platelet Morphology Normal Normal Normal [facility] Comment on above: Result Comment: PERF ORMED BY: [place] [address] PATHOLOGIST MARKETING PROJECT SPECIALIST MELISSA WAGNER M.D. Performed By: #### S CAN CBC, JANESSA, FE and TIBC #### [address] Platelets (Bld) [#/Vol] 218 10*3/uL Normal 150-450 [facility] Comment on above: Performed By: #### S CAN CBC, JANESSA, FE and TIBC #### [address] Poikilocytosis Slight Normal [facility] Comment on above: Performed By: #### S CAN CBC, JANESSA, FE and TIBC #### [address] RBC (Bld) [#/Vol] 4.34 10*6/uL Normal 3.60-5.00 [facility] Comment on above: Performed By: #### S CAN CBC, JANESSA, FE and TIBC #### [address] Schistocytes Slight Normal [facility] Comment on above: Performed By: #### S CAN CBC, JANESSA, FE and TIBC #### [address] WBC (Bld) [#/Vol] 6.9 10*3/uL Normal 3.8-11.6 [facility] Comment on above: Performed By: #### S CAN CBC, JANESSA, FE and TIBC #### [address] AMYLASEon 04-17-2023 Amylase [Catalytic activity/Vol] 64 U/L Normal 25-115 [facility] Comment on above: Performed By: #### B MP, LIPA, YVETTE, LIVER #### [facility] [address] [place] [id number] Dr. Idania oRldan CBC AUTO DIFFon 01-25-2023 BASO # 0.0 103/ul Normal 0.0-0.1 [facility] Comment on above: Performed By: #### B MP, LIPA, YVETTE, LIVER #### [facility] [address] [place] [address] Dr. Idania Roldan Basophils/100 WBC (Bld) 0.3 % Normal 0.2-2.0 [facility] Comment on above: Performed By: #### B MP, LIPA, YVETTE, LIVER #### [facility] [address] [place] [address] Dr. Idania Roldan EO # 0.1 103/ul Normal 0.0-0.7 [facility] Comment on above: Performed By: #### B MP, LIPA, YVETTE, LIVER #### [facility] [address] [place] [address] Dr. Idania Roldan Eosinophils/100 WBC (Bld) 1.0 % Normal 0.9-7.0 [facility] Comment on above: Performed By: #### B MP, LIPA, YVETTE, LIVER #### [facility] [address] [place] [address] Dr. Idania Roldan Erythrocyte distribution width (RBC) [Ratio] 17.2 % Critically high 11.0-15.0 [facility] Comment on above: Performed By: #### B MP, LIPA, YVETTE, LIVER #### [facility] [address] [place] [address] Dr. Idania Roldan Hematocrit (Bld) [Volume fraction] 33.9 % Critically low 36.0-48.0 [facility] Comment on above: Performed By: #### B MP, LIPA, YVETTE, LIVER #### [facility] [address] [place] [address] Dr. Idania Roldan Hemoglobin (Bld) [Mass/Vol] 10.1 g/dL Critically low 12.0-16.0 [facility] Comment on above: Performed By: #### B MP, LIPA, YVETTE, LIVER #### [facility] [address] [place] [address] Dr. Idania Roldan IG # 0.01 10e3/ul Normal 0.00-0.03 [facility] Comment on above: Performed By: #### B MP, LIPA, YVETTE, LIVER #### [facility] [address] [place] [address] Dr. Idania Roldan IG % 0.2 % Normal 0.0-0.5 [facility] Comment on above: Performed By: #### B MP, LIPA, YVETTE, LIVER #### [facility] [address] [place] [address] Dr. Idania Roldan LYMPH # 1.7 103/ul Normal 1.2-3.8 [facility] Comment on above: Performed By: #### B MP, LIPA, YVETTE, LIVER #### [facility] [address] [place] [address] Dr. Idania Roldan Lymphocytes/100 WBC (Bld) 27.9 % Normal 20.5-60.0 [facility] Comment on above: Performed By: #### B MP, LIPA, YVETTE, LIVER #### [facility] [address] [place] [address] Dr. Idania Roldan MANUAL DIFF REQ NO Normal [facility] Comment on above: Performed By: #### B MP, LIPA, YVETTE, LIVER #### [facility] [address] [place] [address] Dr. Idania Roldan MCH (RBC) [Entitic mass] 20.7 pg Critically low 26.7-34.0 [facility] Comment on above: Performed By: #### B MP, LIPA, YVETTE, LIVER #### [facility] [address] [place] [address] Dr. Idania Roldan MCHC (RBC) [Mass/Vol] 29.8 g/dL Critically low 29.9-35.2 [facility] Comment on above: Performed By: #### B MP, LIPA, YVETTE, LIVER #### [facility] [address] [place] [address] Dr. Idania Roldan MCV (RBC) [Entitic vol] 69.6 fL Critically low 81.0-99.0 [facility] Comment on above: Performed By: #### B MP, LIPA, YVETTE, LIVER #### [facility] [address] [place] [address] Dr. Idania Roldan MONO # 0.4 103/ul Normal 0.3-0.8 [facility] Comment on above: Performed By: #### B MP, LIPA, YVETTE, LIVER #### [facility] [address] [place] [address] Dr. Idania Roldan Monocytes/100 WBC (Bld) 7.1 % Normal 1.7-12.0 [facility] Comment on above: Performed By: #### B MP, LIPA, YVETTE, LIVER #### [facility] [address] [place] [address] Dr. Idania Roldan NEUT # 3.8 103/ul Normal 1.4-6.5 [facility] Comment on above: Performed By: #### B MP, LIPA, YVETTE, LIVER #### [facility] [address] [place] [address] Dr. Idania Roldan Neutrophils/100 WBC (Bld) 63.5 % Normal 43.0-75.0 [facility] Comment on above: Performed By: #### B MP, LIPA, YVETTE, LIVER #### [facility] [address] [place] [address] Dr. Idania Roldan Platelet mean volume (Bld) [Entitic vol] 9.3 fL Critically low 9.5-13.5 [facility] Comment on above: Performed By: #### B MP, LIPA, YVETTE, LIVER #### [facility] [address] [place] [address] Dr. Idania Roldan PLT 294 103/ul Normal 150-450 [facility] Comment on above: Performed By: #### B MP, LIPA, YVETTE, LIVER #### [facility] [address] [address] [address] Idania Roldan RBC 4.87 106/ul Normal 4.20-5.40 [facility] Comment on above: Performed By: #### B MP, LIPA, YVETTE, LIVER #### [facility] [address] [address] [address] Idania Roldan WBC 6.0 103/ul Normal 4.0-11.0 [facility] Comment on above: Performed By: #### B MP, LIPA, YVETTE, LIVER #### [facility] [address] [address] ABD/PELVIS WO CONon [...] VEDA BOND Date: 2023-01-25 12:20 Normal [facility] ER URINE PROFILEon 3 Bilirubin Ql (U) SMALL Abnormal NEGATIVE The [facility] Comment on above: Performed By: #### B MP, LIPA, YVETTE, LIVER #### [facility] [address] [address] [address] Idania Roldan Clarity (U) CLEAR Normal CLEAR [facility] Comment on above: Performed By: #### B MP, LIPA, YVETTE, LIVER #### [facility] [address] [address] [address] Idania Roldan Color (U) DK. YELLOW Normal YELLOW [facility] Comment on above: Performed By: #### B MP, LIPA, YVETTE, LIVER #### [facility] [address] [address] [address] Idania Roldan ERUAHD A micrscopic examina tion will be performed if indicated. Normal [facility] Comment on above: Performed By: #### B MP, LIPA, YVETTE, LIVER #### [facility] [address] [place] [address] Dr. Idania Roldan Glucose Ql (U) Negative Normal NEGATIVE The [facility] Comment on above: Performed By: #### B MP, LIPA, YVETTE, LIVER #### [facility] [address] [address] [address] Idania Roldan Hemoglobin Ql (U) LARGE Abnormal NEGATIVE The [facility] Comment on above: Performed By: #### B MP, LIPA, YVETTE, LIVER #### [facility] [address] [place] [address] Dr. Idania Roldan Ketones Ql (U) TRACE Abnormal NEGATIVE The [facility] Comment on above: Performed By: #### B MP, LIPA, YVETTE, LIVER #### [facility] [address] [place] [address] Dr. Idania Roldan LEUKOCYTES Negative Normal NEGATIVE [facility] Comment on above: Performed By: #### B MP, LIPA, YVETTE, LIVER #### [facility] [address] [place] [address] Dr. Idania Roldan Nitrite Ql (U) Negative Normal NEGATIVE The [facility] Comment on above: Performed By: #### B MP, LIPA, YVETTE, LIVER #### [facility] [address] [place] [address] Dr. Idania Roldan pH (U) 5.0 [pH] Normal 5-9 [facility] Comment on above: Performed By: #### B MP, LIPA, YVETTE, LIVER #### [facility] [address] [place] [address] Dr. Idania Roldan SPEC GRAVITY >=1.030 Abnormal 1.005-<=1.[address] [facility] Comment on above: Performed By: #### B MP, LIPA, YVETTE, LIVER #### [facility] [address] [place] [address] Dr. Idania Roldan UA PROTEIN TRACE Normal NEGATIVE/ TRACE [facility] Comment on above: Performed By: #### B MP, LIPA, YVETTE, LIVER #### [facility] [address] [place] [address] Dr. Idania Roldan UR MICRO IND INDICATED Normal [facility] Comment on above: Performed By: #### B MP, LIPA, YVETTE, LIVER #### [facility] [address] [place] [address] Dr. Idania Roldan Urobilinogen Qn (U) 0.2 {Bryan'U}/dL Normal 0.2 - 1. 0 [facility] Comment on above: Performed By: #### B MP, LIPA, YVETTE, LIVER #### [facility] [address] [place] [address] Dr. Idania Roldan LIPASEon 01-25-2023 Lipase [Catalytic activity/Vol] 226.0 U/L Normal 73.0-393.0 [facility] Comment on above: Performed By: #### B MP, LIPA, YVETTE, LIVER #### [facility] [address] [place] [address] Dr. Idania Roldan LIVER PROFILEon 01-25-2023 Albumin [Mass/Vol] 4.1 g/dL Normal 3.4-5.0 [facility] Comment on above: Performed By: #### B MP, LIPA, YVETTE, LIVER #### [facility] [address] [place] [address] Dr. Idania Roldan Albumin/Globulin [Mass ratio] 0.9 {ratio} Normal [facility] Comment on above: Performed By: #### B MP, LIPA, YVETTE, LIVER #### [facility] [address] [place] [address] Dr. Idania Roldan ALP [Catalytic activity/Vol] 110 U/L Normal 46-116 [facility] Comment on above: Performed By: #### B MP, LIPA, YVETTE, LIVER #### [facility] [address] [place] [address] Dr. Idania Roldan ALT [Catalytic activity/Vol] 20 U/L Normal 14-59 [facility] Comment on above: Performed By: #### B MP, LIPA, YVETTE, LIVER #### [facility] [address] [place] [address] Dr. Idania Roldan AST [Catalytic activity/Vol] 11 U/L Critically low 15-37 [facility] Comment on above: Performed By: #### B MP, LIPA, YVETTE, LIVER #### [facility] [address] [place] [address] Dr. Idania Roldan BILI, CONJUGATED 0.1 mg/dL Normal 0.0-0.2 [facility] Comment on above: Performed By: #### B MP, LIPA, YVETTE, LIVER #### [facility] [address] [place] [address] Dr. Idaina Roldan Bilirubin [Mass/Vol] 0.3 mg/dL Normal 0.2-1.0 [facility] Comment on above: Performed By: #### B MP, LIPA, YVETTE, LIVER #### [facility] [address] [place] [address] Dr. Idania Roldan Globulin (S) [Mass/Vol] 4.4 g/dL Normal [facility] Comment on above: Performed By: #### B MP, LIPA, YVETTE, LIVER #### [facility] [address] [place] [address] Dr. Idania Roldan Protein [Mass/Vol] 8.5 g/dL Critically high 6.4-8.2 [facility] Comment on above: Performed By: #### B MP, LIPA, YVETTE, LIVER #### [facility] [address] [place] [address] Dr. Idania Roldan PROF CHEM 8 (BAS METB)on Anion gap [Moles/Vol] 13.5 mmol/L Normal [facility] Comment on above: Performed By: #### B MP, LIPA, YVETTE, LIVER #### [facility] [address] [place] [address] Dr. Idania Roldan Calcium [Mass/Vol] 9.3 mg/dL Normal 8.5-10.1 [facility] Comment on above: Performed By: #### B MP, LIPA, YVETTE, LIVER #### [facility] [address] [place] [address] Dr. Idania Roldan Chloride [Moles/Vol] 105 mmol/L Normal 98-107 [facility] Comment on above: Performed By: #### B MP, LIPA, YVETTE, LIVER #### [facility] [address] [place] [address] Dr. Idania Roldan CO2 [Moles/Vol] 27.2 mmol/L Normal 21.0-32.0 [facility] Comment on above: Performed By: #### B MP, LIPA, YVETTE, LIVER #### [facility] [address] [place] [address] Dr. Idania Roldan Creatinine [Mass/Vol] 0.74 mg/dL Normal 0.55-1.02 [facility] Comment on above: Performed By: #### B MP, LIPA, YVETTE, LIVER #### [facility] [address] [place] [address] Dr. Idania Roldan EGFR-AF IRAQI >60 Normal >=60 [facility] Comment on above: Performed By: #### B MP, LIPA, YVETTE, LIVER #### [facility] [address] [place] [address] Dr. Idania Roldan EGFR-NON AF IRAQI >60 Normal >=60 [facility] Comment on above: Performed By: #### B MP, LIPA, YVETTE, LIVER #### [facility] [address] [place] [address] Dr. Idania Roldan Glucose [Mass/Vol] 97 mg/dL Normal 74-106 [facility] Comment on above: Performed By: #### B MP, LIPA, YVETTE, LIVER #### [facility] [address] [place] [address] Dr. Idania Roldan Potassium [Moles/Vol] 3.7 mmol/L Normal 3.5-5.1 [facility] Comment on above: Performed By: #### B MP, LIPA, YVETTE, LIVER #### [facility] [address] [place] [address] Dr. Idania Roldan Sodium [Moles/Vol] 142 mmol/L Normal 136-145 [facility] Comment on above: Performed By: #### B MP, LIPA, YVETTE, LIVER #### [facility] [address] [place] [address] Dr. Idania Roldan Urea nitrogen [Mass/Vol] 13.0 mg/dL Normal 7.0-18.0 [facility] Comment on above: Performed By: #### B MP, LIPA, YVETTE, LIVER #### [facility] [address] [place] [address] Dr. Idania Roldan Urea nitrogen/Creatinine [Mass ratio] 17.6 mg/mg Normal [facility] Comment on above: Performed By: #### B MP, LIPA, YVETTE, LIVER #### [facility] [address] [place] [address] Dr. Idania Roldan URINE MICROSCOPIC ONLYon BACTERIA NONE SEEN Normal NONE SEEN [facility] Comment on above: Performed By: #### B MP, LIPA, YVETTE, LIVER #### [facility] [address] [place] [address] Dr. Idania Roldan Bacteria identified Cx Nom (U) NOT INDICATED Normal [facility] Comment on above: Performed By: #### B MP, LIPA, YVETTE, LIVER #### [facility] [address] [place] [address] Dr. Idania Roldan CAST NONE SEEN Normal NONE SEEN [facility] Comment on above: Performed By: #### B MP, LIPA, YVETTE, LIVER #### [facility] [address] [address] [address] Idania Roldan Crystals LM Nom (Urine sed) NONE SEEN Normal NONE SEEN [facility] Comment on above: Performed By: #### B MP, LIPA, YVETTE, LIVER #### [facility] [address] [address] [address] Idania Roldan Epithelial cells LM Ql (Urine sed) FEW Abnormal NONE SEEN /RARE [facility] Comment on above: Performed By: #### B MP, LIPA, YVETTE, LIVER #### [facility] [address] [address] [address] Idania Roldan MUCOUS NONE SEEN Normal NONE SEEN [facility] Comment on above: Performed By: #### B MP, LIPA, YVETTE, LIVER #### [facility] [address] [address] [address] Idania Roldan RBC (U) [#/Vol] /uL Abnormal 0-2 [facility] Comment on above: Performed By: #### B MP, LIPA, YVETTE, LIVER #### [facility] [address] [place] [address] Dr. Idania Roldan WBC NONE SEEN Normal NONE SEEN [facility] Comment on above: Performed By: #### B MP, LIPA, YVETTE, LIVER #### [facility] [address] [address] [address] Idania Roldan XR KUB 1 VIEWon [...] DENILSON AUSTIN Date: 2023-01-24 19:51 Normal [facility] AMYLASEon 01-21-2023 Amylase [Catalytic activity/Vol] 64 U/L Normal 25-115 [facility] Comment on above: Performed By: #### P T, PTT #### [facility] [address] [place] [address] Dr. Idania Roldan CBC AUTO DIFFon 01-21-2023 BASO # 0.0 103/ul Normal 0.0-0.1 [facility] Comment on above: Performed By: #### B MP, LIPA, YVETTE, LIVER #### [facility] [address] [place] [address] Dr. Idania Roldan Basophils/100 WBC (Bld) 0.2 % Normal 0.2-2.0 [facility] Comment on above: Performed By: #### B MP, LIPA, YVETTE, LIVER #### [facility] [address] [place] [address] Dr. Idania Roldan EO # 0.1 103/ul Normal 0.0-0.7 [facility] Comment on above: Performed By: #### B MP, LIPA, YVETTE, LIVER #### [facility] [address] [place] [address] Dr. Idania Roldan Eosinophils/100 WBC (Bld) 0.9 % Normal 0.9-7.0 [facility] Comment on above: Performed By: #### B MP, LIPA, YVETTE, LIVER #### [facility] [address] [place] [address] Dr. Idania Roldan Erythrocyte distribution width (RBC) [Ratio] 17.2 % Critically high 11.0-15.0 [facility] Comment on above: Performed By: #### B MP, LIPA, YVETTE, LIVER #### [facility] [address] [place] [address] Dr. Idania Roldan Hematocrit (Bld) [Volume fraction] 32.5 % Critically low 36.0-48.0 [facility] Comment on above: Performed By: #### B MP, LIPA, YVETTE, LIVER #### [facility] [address] [place] [address] Dr. Idania Roldan Hemoglobin (Bld) [Mass/Vol] 9.5 g/dL Critically low 12.0-16.0 [facility] Comment on above: Performed By: #### B MP, LIPA, YVETTE, LIVER #### [facility] [address] [place] [address] Dr. Idania Roldan IG # 0.01 10e3/ul Normal 0.00-0.03 [facility] Comment on above: Performed By: #### B MP, LIPA, YVETTE, LIVER #### [facility] [address] [place] [address] Dr. Idania Roldan IG % 0.2 % Normal 0.0-0.5 [facility] Comment on above: Performed By: #### B MP, LIPA, YVETTE, LIVER #### [facility] [address] [place] [address] Dr. Idania Roldan LYMPH # 2.0 103/ul Normal 1.2-3.8 [facility] Comment on above: Performed By: #### B MP, LIPA, YVETTE, LIVER #### [facility] [address] [place] [address] Dr. Idania Roldan Lymphocytes/100 WBC (Bld) 34.7 % Normal 20.5-60.0 [facility] Comment on above: Performed By: #### B MP, LIPA, YVETTE, LIVER #### [facility] [address] [place] [address] Dr. Idania Roldan MANUAL DIFF REQ NO Normal [facility] Comment on above: Performed By: #### B MP, LIPA, YVETTE, LIVER #### [facility] [address] [place] [address] Dr. Idania Roldan MCH (RBC) [Entitic mass] 20.5 pg Critically low 26.7-34.0 [facility] Comment on above: Performed By: #### B MP, LIPA, YVETTE, LIVER #### [facility] [address] [place] [address] Dr. Idania Roldan MCHC (RBC) [Mass/Vol] 29.2 g/dL Critically low 29.9-35.2 [facility] Comment on above: Performed By: #### B MP, LIPA, YVETTE, LIVER #### [facility] [address] [place] [address] Dr. Idania Roldan MCV (RBC) [Entitic vol] 70.2 fL Critically low 81.0-99.0 [facility] Comment on above: Performed By: #### B MP, LIPA, YVETTE, LIVER #### [facility] [address] [place] [address] Dr. Idania Roldan MONO # 0.5 103/ul Normal 0.3-0.8 [facility] Comment on above: Performed By: #### B MP, LIPA, YVETTE, LIVER #### [facility] [address] [place] [address] Dr. Idania Roldan Monocytes/100 WBC (Bld) 8.7 % Normal 1.7-12.0 [facility] Comment on above: Performed By: #### B MP, LIPA, YVETTE, LIVER #### [facility] [address] [place] [address] Dr. Idania Roldan NEUT # 3.2 103/ul Normal 1.4-6.5 [facility] Comment on above: Performed By: #### B MP, LIPA, YVETTE, LIVER #### [facility] [address] [place] [address] Dr. Idania Roldan Neutrophils/100 WBC (Bld) 55.3 % Normal 43.0-75.0 [facility] Comment on above: Performed By: #### B MP, LIPA, YVETTE, LIVER #### [facility] [address] [place] [address] Dr. Idania Roldan Platelet mean volume (Bld) [Entitic vol] 9.7 fL Normal 9.5-13.5 [facility] Comment on above: Performed By: #### B MP, LIPA, YVETTE, LIVER #### [facility] [address] [place] [address] Dr. Idania Roldan PLT 310 103/ul Normal 150-450 [facility] Comment on above: Performed By: #### B MP, LIPA, YVETTE, LIVER #### [facility] [address] [place] [address] Dr. Idania Roldan RBC 4.63 106/ul Normal 4.20-5.40 [facility] Comment on above: Performed By: #### B MP, LIPA, YVETTE, LIVER #### [facility] [address] [place] [address] Dr. Idania Roldan WBC 5.8 103/ul Normal 4.0-11.0 [facility] Comment on above: Performed By: #### B MP, LIPA, YVETTE, LIVER #### [facility] [address] [place] [address] Dr. Idania Roldan CULTURE URINEon 01-21-2023 CULTURE URINE Culture Observations : MODERATE GROWTH OF MIXED GENITAL ALE. NO POTENTIAL PATHOGENS SEEN. Normal [facility] Comment on above: Performed By: #### P T, PTT #### [facility] [address] [place] [address] Dr. Idania Roldan LIPASEon 01-21-2023 Lipase [Catalytic activity/Vol] 251.0 U/L Normal 73.0-393.0 [facility] Comment on above: Performed By: #### P T, PTT #### [facility] [address] [place] [address] Dr. Idania Roldan PROF 14(COMP METB)on 023 Albumin [Mass/Vol] 3.8 g/dL Normal 3.4-5.0 [facility] Comment on above: Performed By: #### P T, PTT #### [facility] [address] [place] [address] Dr. Idania Roldan Albumin/Globulin [Mass ratio] 1.0 {ratio} Normal [facility] Comment on above: Performed By: #### P T, PTT #### [facility] [address] [place] [address] Dr. Idania Roldan ALP [Catalytic activity/Vol] 107 U/L Normal 46-116 [facility] Comment on above: Performed By: #### P T, PTT #### [facility] [address] [place] [address] Dr. Idania Roldan ALT [Catalytic activity/Vol] 17 U/L Normal 14-59 [facility] Comment on above: Performed By: #### P T, PTT #### [facility] [address] [address] [address] Idania Roldan Anion gap [Moles/Vol] 13.3 mmol/L Normal [facility] Comment on above: Performed By: #### P T, PTT #### [facility] [address] [address] [address] Idania Roldan AST [Catalytic activity/Vol] 9 U/L Critically low 15-37 [facility] Comment on above: Performed By: #### P T, PTT #### [facility] [address] [address] [address] Idania Roldan Bilirubin [Mass/Vol] 0.3 mg/dL Normal 0.2-1.0 [facility] Comment on above: Performed By: #### P T, PTT #### [facility] [address] [address] [address] Idania Roldan Calcium [Mass/Vol] 9.0 mg/dL Normal 8.5-10.1 [facility] Comment on above: Performed By: #### P T, PTT #### [facility] [address] [address] [address] Idania Roldan Chloride [Moles/Vol] 103 mmol/L Normal 98-107 [facility] Comment on above: Performed By: #### P T, PTT #### [facility] [address] [address] [address] Idania Roldan CO2 [Moles/Vol] 28.2 mmol/L Normal 21.0-32.0 [facility] Comment on above: Performed By: #### P T, PTT #### [facility] [address] [address] [address] Idania Roldan Creatinine [Mass/Vol] 0.81 mg/dL Normal 0.55-1.02 [facility] Comment on above: Performed By: #### P T, PTT #### [facility] [address] [address] [address] Idania Roldan EGFR-AF IRAQI >60 Normal >=60 [facility] Comment on above: Performed By: #### P T, PTT #### [facility] [address] [address] [address] Idania Roldan EGFR-NON AF IRAQI >60 Normal >=60 [facility] Comment on above: Performed By: #### P T, PTT #### [facility] [address] [address] [address] Idania Roldan Globulin (S) [Mass/Vol] 3.9 g/dL Normal [facility] Comment on above: Performed By: #### P T, PTT #### [facility] [address] [address] [address] Idania Roldan Glucose [Mass/Vol] 93 mg/dL Normal 74-106 [facility] Comment on above: Performed By: #### P T, PTT #### [facility] [address] [place] [address] Dr. Idania Roldan Potassium [Moles/Vol] 3.5 mmol/L Normal 3.5-5.1 [facility] Comment on above: Performed By: #### P T, PTT #### [facility] [address] [place] [address] Dr. Idania Roldan Protein [Mass/Vol] 7.7 g/dL Normal 6.4-8.2 [facility] Comment on above: Performed By: #### P T, PTT #### [facility] [address] [place] [address] Dr. Idania Roldan Sodium [Moles/Vol] 141 mmol/L Normal 136-145 [facility] Comment on above: Performed By: #### P T, PTT #### [facility] [address] [place] [address] Dr. Idania Roldan Urea nitrogen [Mass/Vol] 11.0 mg/dL Normal 7.0-18.0 [facility] Comment on above: Performed By: #### P T, PTT #### [facility] [address] [place] [address] Dr. Idania Roldan Urea nitrogen/Creatinine [Mass ratio] 13.6 mg/mg Normal [facility] Comment on above: Performed By: #### P T, PTT #### [facility] [address] [place] [address] Dr. Idania Roldan UA RANDOM W/MICROSCOPICon BACTERIA SMALL Abnormal NONE SEEN [facility] Comment on above: Performed By: #### B MP, LIPA, YVETTE, LIVER #### [facility] [address] [place] [address] Dr. Idania Roldan Bilirubin Ql (U) SMALL Abnormal NEGATIVE [facility] Comment on above: Performed By: #### B MP, LIPA, YVETTE, LIVER #### [facility] [address] [place] [address] Dr. Idania Roldan CAST NONE SEEN Normal NONE SEEN [facility] Comment on above: Performed By: #### B MP, LIPA, YVETTE, LIVER #### [facility] [address] [place] [address] Dr. Idania Roldan Clarity (U) CLEAR Normal CLEAR [facility] Comment on above: Performed By: #### B MP, LIPA, YVETTE, LIVER #### [facility] [address] [place] [address] Dr. Idania Roldan Color (U) DK. YELLOW Normal YELLOW [facility] Comment on above: Performed By: #### B MP, LIPA, YVETTE, LIVER #### [facility] [address] [place] [address] Dr. Idania Roldan Crystals LM Nom (Urine sed) NONE SEEN Normal NONE SEEN [facility] Comment on above: Performed By: #### B MP, LIPA, YVETTE, LIVER #### [facility] [address] [place] [address] Dr. Idania Roldan Epithelial cells LM Ql (Urine sed) FEW Abnormal NONE SEEN /RARE [facility] Comment on above: Performed By: #### B MP, LIPA, YVETTE, LIVER #### [facility] [address] [place] [address] Dr. Idania Roldan Glucose Ql (U) Negative Normal NEGATIVE The [facility] Comment on above: Performed By: #### B MP, LIPA, YVETTE, LIVER #### [facility] [address] [address] [address] Idania Roldan Hemoglobin Ql (U) LARGE Abnormal NEGATIVE The [facility] Comment on above: Performed By: #### B MP, LIPA, YVETTE, LIVER #### [facility] [address] [place] [address] Dr. Idania Roldan Ketones Ql (U) TRACE Abnormal NEGATIVE The [facility] Comment on above: Performed By: #### B MP, LIPA, YVETTE, LIVER #### [facility] [address] [place] [address] Dr. Idania Roldan LEUKOCYTES Negative Normal NEGATIVE [facility] Comment on above: Performed By: #### B MP, LIPA, YVETTE, LIVER #### [facility] [address] [place] [address] Dr. Idania Roldan MUCOUS MODERATE Abnormal NONE SEEN [facility] Comment on above: Performed By: #### B MP, LIPA, YVETTE, LIVER #### [facility] [address] [place] [address] Dr. Idania Roldan Nitrite Ql (U) Negative Normal NEGATIVE The [facility] Comment on above: Performed By: #### B MP, LIPA, YVETTE, LIVER #### [facility] [address] [place] [address] Dr. Idania Roldan pH (U) 5.0 [pH] Normal 5-9 [facility] Comment on above: Performed By: #### B MP, LIPA, YVETTE, LIVER #### [facility] [address] [place] [address] Dr. Idania Roldan RBC (U) [#/Vol] /uL Abnormal 0-2 The [facility] Comment on above: Performed By: #### B MP, LIPA, YVETTE, LIVER #### [facility] [address] [place] [address] Dr. Idania Roldan SPEC GRAVITY >=1.030 Abnormal 1.005-<=1.[address] [facility] Comment on above: Performed By: #### B MP, LIPA, YVETTE, LIVER #### [facility] [address] [place] [address] Dr. Idania Roldan UA PROTEIN TRACE Normal NEGATIVE/ TRACE [facility] Comment on above: Performed By: #### B MP, LIPA, YVETTE, LIVER #### [facility] [address] [address] [address] Idania Roldan Urobilinogen Qn (U) 0.2 {Bryan'U}/dL Normal 0.2 - 1. 0 [facility] Comment on above: Performed By: #### B MP, LIPA, YVETTE, LIVER #### [facility] [address] [address] [address] Idania Roldan WBC 0-2 Abnormal NONE SEEN [facility] Comment on above: Performed By: #### B MP, LIPA, YVETTE, LIVER #### [facility] [address] [address] [address] Idania Roldan [facility] SARS-CoV-2 (COVID-19) RNA MAMIE+probe Ql (Unsp spec) Detected Critically abnormal NOT DETECTED [facility] Comment on above: Result Comment: This test is not yet approved or cleared by the [place] FDA. When there are no FDA-approved or cleared tests available, and other criteria are met, FDA can make tests available under an emergency access mechanism called an Emergency Use Authorization (EUA). The EUA for this test is supported by the Meter/Relay Technician of Health and Human Service's (HHS's) declaration [...] used). Performed By: #### C VDTBH #### [facility] [address] [place] [address] Dr. Idania Roldan INFLUENZA A AND B AGon 10-06 INFLUANEGH SEE BELOW Normal [facility] Comment on above: Result Comment: Nega tive for Flu A protein angiten. Infection due to Flu A cannot be ruled out. Flu A angiten in the sample may be below the detection limit of the test. Performed By: #### P T, PTT #### [facility] [address] [place] [address] Dr. Idania Roldan [facility] SEE BELOW Normal [facility] Comment on above: Result Comment: Nega tive for Flu B protein antigen. Infection due to Flu B cannot be ruled out. Flu B antigen in the sample may be below the detection limit of the test. Performed By: #### P T, PTT #### [facility] [address] [place] [address] Dr. Idania Roldan INFLUENZA A AG Negative Normal NEGATIVE SEE COMMENT [facility] Comment on above: Performed By: #### P T, PTT #### [facility] [address] [place] [address] Dr. Idania Roldan INFLUENZA B AG Negative Normal NEGATIVE SEE COMMENT [facility] Comment on above: Performed By: #### P T, PTT #### [facility] [address] [place] [address] Dr. Idania Roldan INTERNAL CONTROLS Within Normal Limits Normal Wi thin Normal Limits [facility] Comment on above: Performed By: #### P T, PTT #### [facility] [address] [place] [address] Dr. Idania Roldan AMYLASEon 09-30-2022 Amylase [Catalytic activity/Vol] 62 U/L Normal 25-115 [facility] Comment on above: Performed By: #### B MP, LIPA, YVETTE, LIVER #### [facility] [address] [place] [address] Dr. Idania Roldan CBC AUTO DIFFon 09-30-2022 BASO # 0.0 103/ul Normal 0.0-0.1 [facility] Comment on above: Performed By: #### C BC #### [facility] [address] [place] [address] Dr. Idania Roldan Basophils/100 WBC (Bld) 0.3 % Normal 0.2-2.0 [facility] Comment on above: Performed By: #### C BC #### [facility] [address] [place] [address] Dr. Idania Roldan EO # 0.1 103/ul Normal 0.0-0.7 [facility] Comment on above: Performed By: #### C BC #### [facility] [address] [place] [address] Dr. Idania Roldan Eosinophils/100 WBC (Bld) 1.2 % Normal 0.9-7.0 [facility] Comment on above: Performed By: #### C BC #### [facility] [address] [place] [address] Dr. Idania Roldan Erythrocyte distribution width (RBC) [Ratio] 14.8 % Normal 11.0-15.0 [facility] Comment on above: Performed By: #### C BC #### [facility] [address] [place] [address] Dr. Idania Roldan Hematocrit (Bld) [Volume fraction] 31.8 % Critically low 36.0-48.0 [facility] Comment on above: Performed By: #### C BC #### [facility] [address] [place] [address] Dr. Idania Roldan Hemoglobin (Bld) [Mass/Vol] 9.6 g/dL Critically low 12.0-16.0 [facility] Comment on above: Performed By: #### C BC #### [facility] [address] [place] [address] Dr. Idania Roldan IG # 0.01 10e3/ul Normal 0.00-0.03 [facility] Comment on above: Performed By: #### C BC #### [facility] [address] [place] [address] Dr. Idania Roldan IG % 0.1 % Normal 0.0-0.5 [facility] Comment on above: Performed By: #### C BC #### [facility] [address] [place] [address] Dr. Idania Roldan LYMPH # 3.3 103/ul Normal 1.2-3.8 [facility] Comment on above: Performed By: #### C BC #### [facility] [address] [place] [address] Dr. Idania Roldan Lymphocytes/100 WBC (Bld) 45.4 % Normal 20.5-60.0 [facility] Comment on above: Performed By: #### C BC #### [facility] [address] [place] [address] Dr. Idania Roldan MANUAL DIFF REQ NO Normal [facility] Comment on above: Performed By: #### C BC #### [facility] [address] [place] [address] Dr. Idania Roldan MCH (RBC) [Entitic mass] 22.7 pg Critically low 26.7-34.0 [facility] Comment on above: Performed By: #### C BC #### [facility] [address] [place] [address] Dr. Idania Roldan MCHC (RBC) [Mass/Vol] 30.2 g/dL Normal 29.9-35.2 [facility] Comment on above: Performed By: #### C BC #### [facility] [address] [place] [address] Dr. Idania Roldan MCV (RBC) [Entitic vol] 75.4 fL Critically low 81.0-99.0 [facility] Comment on above: Performed By: #### C BC #### [facility] [address] [place] [address] Dr. Idania Roldan MONO # 0.5 103/ul Normal 0.3-0.8 [facility] Comment on above: Performed By: #### C BC #### [facility] [address] [place] [address] Dr. Idania Roldan Monocytes/100 WBC (Bld) 6.2 % Normal 1.7-12.0 [facility] Comment on above: Performed By: #### C BC #### [facility] [address] [place] [address] Dr. Idania Roldan NEUT # 3.4 103/ul Normal 1.4-6.5 [facility] Comment on above: Performed By: #### C BC #### [facility] [address] [place] [address] Dr. Idania Roldan Neutrophils/100 WBC (Bld) 46.8 % Normal 43.0-75.0 [facility] Comment on above: Performed By: #### C BC #### [facility] [address] [place] [address] Dr. Idania Roldan Platelet mean volume (Bld) [Entitic vol] 8.5 fL Critically low 9.5-13.5 [facility] Comment on above: Performed By: #### C BC #### [facility] [address] [place] [address] Dr. Idania Roldan PLT 273 103/ul Normal 150-450 [facility] Comment on above: Performed By: #### C BC #### [facility] [address] [place] [address] Dr. Idania Roldan RBC 4.22 106/ul Normal 4.20-5.40 [facility] Comment on above: Performed By: #### C BC #### [facility] [address] [place] [address] Dr. Idania Roldan WBC 7.2 103/ul Normal 4.0-11.0 [facility] Comment on above: Performed By: #### C BC #### [facility] [address] [place] [address] Dr. Idania Roldan CULTURE URINEon 09-30-2022 CULTURE URINE Culture Observations : MODERATE GROWTH OF MIXED GENITAL ALE. NO POTENTIAL PATHOGENS SEEN. Normal [facility] Comment on above: Performed By: #### P T, PTT #### [facility] [address] [place] [address] Dr. Idania Roldan LIPASEon 09-30-2022 Lipase [Catalytic activity/Vol] 256.0 U/L Normal 73.0-393.0 [facility] Comment on above: Performed By: #### B MP, LIPA, YVETTE, LIVER #### [facility] [address] [place] [address] Dr. Idania Roldan PROF 14(COMP METB)on 022 Albumin [Mass/Vol] 4.1 g/dL Normal 3.4-5.0 [facility] Comment on above: Performed By: #### B MP, LIPA, YVETTE, LIVER #### [facility] [address] [address] [address] Idania Roldan Albumin/Globulin [Mass ratio] 1.0 {ratio} Normal [facility] Comment on above: Performed By: #### B MP, LIPA, YVETTE, LIVER #### [facility] [address] [address] [address] Idania Roldan ALP [Catalytic activity/Vol] 93 U/L Normal 46-116 [facility] Comment on above: Performed By: #### B MP, LIPA, YVETTE, LIVER #### [facility] [address] [address] [address] Idania Roldan ALT [Catalytic activity/Vol] 13 U/L Critically low 14-59 [facility] Comment on above: Performed By: #### B MP, LIPA, YVETTE, LIVER #### [facility] [address] [place] [address] Dr. Idania Roldan Anion gap [Moles/Vol] 9.8 mmol/L Normal [facility] Comment on above: Performed By: #### B MP, LIPA, YVETTE, LIVER #### [facility] [address] [place] [address] Dr. Idania Roldan AST [Catalytic activity/Vol] 12 U/L Critically low 15-37 [facility] Comment on above: Performed By: #### B MP, LIPA, YVETTE, LIVER #### [facility] [address] [address] [address] Idania Roldan Bilirubin [Mass/Vol] 0.2 mg/dL Normal 0.2-1.0 [facility] Comment on above: Performed By: #### B MP, LIPA, YVETTE, LIVER #### [facility] [address] [address] [address] Idania Roldan Calcium [Mass/Vol] 9.2 mg/dL Normal 8.5-10.1 [facility] Comment on above: Performed By: #### B MP, LIPA, YVETTE, LIVER #### [facility] [address] [address] [address] Idania Roldan Chloride [Moles/Vol] 101 mmol/L Normal 98-107 [facility] Comment on above: Performed By: #### B MP, LIPA, YVETTE, LIVER #### [facility] [address] [place] [address] Dr. Idania Roldan CO2 [Moles/Vol] 31.8 mmol/L Normal 21.0-32.0 [facility] Comment on above: Performed By: #### B MP, LIPA, YVETTE, LIVER #### [facility] [address] [place] [address] Dr. Idania Roldan Creatinine [Mass/Vol] 0.71 mg/dL Normal 0.55-1.02 [facility] Comment on above: Performed By: #### B MP, LIPA, YVETTE, LIVER #### [facility] [address] [place] [address] Dr. Idania Roldan EGFR-AF IRAQI >60 Normal >=60 [facility] Comment on above: Performed By: #### B MP, LIPA, YVETTE, LIVER #### [facility] [address] [place] [address] Dr. Idania Roldan EGFR-NON AF IRAQI >60 Normal >=60 [facility] Comment on above: Performed By: #### B MP, LIPA, YVETTE, LIVER #### [facility] [address] [place] [address] Dr. Idania Roldan Globulin (S) [Mass/Vol] 4.0 g/dL Normal [facility] Comment on above: Performed By: #### B MP, LIPA, YVETTE, LIVER #### [facility] [address] [place] [address] Dr. Idania Roldan Glucose [Mass/Vol] 92 mg/dL Normal 74-106 [facility] Comment on above: Performed By: #### B MP, LIPA, YVETTE, LIVER #### [facility] [address] [place] [address] Dr. Idania Roldan Potassium [Moles/Vol] 3.6 mmol/L Normal 3.5-5.1 [facility] Comment on above: Performed By: #### B MP, LIPA, YVETTE, LIVER #### [facility] [address] [place] [address] Dr. Idania Roladn Protein [Mass/Vol] 8.1 g/dL Normal 6.4-8.2 [facility] Comment on above: Performed By: #### B MP, LIPA, YVETTE, LIVER #### [facility] [address] [place] [address] Dr. Idania Roldan Sodium [Moles/Vol] 139 mmol/L Normal 136-145 [facility] Comment on above: Performed By: #### B MP, LIPA, YVETTE, LIVER #### [facility] [address] [place] [address] Dr. Idania Roldan Urea nitrogen [Mass/Vol] 15.0 mg/dL Normal 7.0-18.0 [facility] Comment on above: Performed By: #### B MP, LIPA, YVETTE, LIVER #### [facility] [address] [place] [address] Dr. Idania Roldan Urea nitrogen/Creatinine [Mass ratio] 21.1 mg/mg Normal [facility] Comment on above: Performed By: #### B MP, LIPA, YVETTE, LIVER #### [facility] [address] [place] [address] Dr. Idania Roldan UA RANDOM W/MICROSCOPICon BACTERIA SMALL Abnormal NONE SEEN [facility] Comment on above: Performed By: #### B MP, LIPA, YVETTE, LIVER #### [facility] [address] [place] [address] Dr. Idania Roldan Bilirubin Ql (U) Negative Normal NEGATIVE [facility] Comment on above: Performed By: #### B MP, LIPA, YVETTE, LIVER #### [facility] [address] [place] [address] Dr. Idania Roldan CAST NONE SEEN Normal NONE SEEN [facility] Comment on above: Performed By: #### B MP, LIPA, YVETTE, LIVER #### [facility] [address] [place] [address] Dr. Idania Roldan Clarity (U) CLEAR Normal CLEAR [facility] Comment on above: Performed By: #### B MP, LIPA, YVETTE, LIVER #### [facility] [address] [address] [address] Idania Roldan Color (U) YELLOW Normal YELLOW [facility] Comment on above: Performed By: #### B MP, LIPA, YVETTE, LIVER #### [facility] [address] [address] [address] Idania Roldan Crystals LM Nom (Urine sed) NONE SEEN Normal NONE SEEN [facility] Comment on above: Performed By: #### B MP, LIPA, YVETTE, LIVER #### [facility] [address] [address] [address] Idania Roldan Epithelial cells LM Ql (Urine sed) FEW Abnormal NONE SEEN /RARE [facility] Comment on above: Performed By: #### B MP, LIPA, YVETTE, LIVER #### [facility] [address] [place] [address] Dr. Idania Roldan Glucose Ql (U) Negative Normal NEGATIVE [facility] Comment on above: Performed By: #### B MP, LIPA, YVETTE, LIVER #### [facility] [address] [place] [address] Dr. Idania Roldan Hemoglobin Ql (U) Negative Normal NEGATIVE [facility] Comment on above: Performed By: #### B MP, LIPA, YVETTE, LIVER #### [facility] [address] [place] [address] Dr. Idania Roldan Ketones Ql (U) Negative Normal NEGATIVE [facility] Comment on above: Performed By: #### B MP, LIPA, YVETTE, LIVER #### [facility] [address] [place] [address] Dr. Idania Roldan LEUKOCYTES SMALL Abnormal NEGATIVE [facility] Comment on above: Performed By: #### B MP, LIPA, YVETTE, LIVER #### [facility] [address] [place] [address] Dr. Idania Roldan MUCOUS TRACE Abnormal NONE SEEN [facility] Comment on above: Performed By: #### B MP, LIPA, YVETTE, LIVER #### [facility] [address] [place] [address] Dr. Idania Roldan Nitrite Ql (U) Negative Normal NEGATIVE [facility] Comment on above: Performed By: #### B MP, LIPA, YVETTE, LIVER #### [facility] [address] [place] [address] Dr. Idania Roldan pH (U) 7.0 [pH] Normal 5-9 [facility] Comment on above: Performed By: #### B MP, LIPA, YVETTE, LIVER #### [facility] [address] [place] [address] Dr. Idania Roldan RBC NONE SEEN Abnormal 0-2 [facility] Comment on above: Performed By: #### B MP, LIPA, YVETTE, LIVER #### [facility] [address] [place] [address] Dr. Idania Roldan SPEC GRAVITY 1.015 Normal 1.005-<=1.02 5 [facility] Comment on above: Performed By: #### B MP, LIPA, YVETTE, LIVER #### [facility] [address] [place] [address] Dr. Idania Roldan UA PROTEIN Negative Normal NEGATIVE/ TRACE [facility] Comment on above: Performed By: #### B MP, LIPA, YVETTE, LIVER #### [facility] [address] [place] [address] Dr. Idania Roldan Urobilinogen Qn (U) 0.2 {Bryan'U}/dL Normal 0.2 - 1. 0 [facility] Comment on above: Performed By: #### B MP, LIPA, YVETTE, LIVER #### [facility] [address] [place] [address] Dr. Idania Roldan WBC 5-10 Abnormal NONE SEEN [facility] Comment on above: Performed By: #### B MP, LIPA, YVETTE, LIVER #### [facility] [address] [place] [address] Dr. Idania Roldan Covid-19 PCR ([facility])on 09-10 SARS-CoV-2 (COVID-19) RNA MAMIE+probe Ql (Unsp spec) Not detected Normal NOT DETECTED [facility] Comment on above: Result Comment: This test is not yet approved or cleared by the [place] FDA. When there are no FDA-approved or cleared tests available, and other criteria are met, FDA can make tests available under an emergency access mechanism called an Emergency Use Authorization (EUA). The EUA for this test is supported by the Meter/Relay Technician of Health and Human Service's (HHS's) declaration [...] SARS-CoV-2. Performed By: #### C VDTB #### [facility] [address] [place] [address] Dr. Idania Roldan INFLUENZA A AND B AGon 09-21 [facility] SEE BELOW Normal [facility] Comment on above: Result Comment: Nega tive for Flu A protein angiten. Infection due to Flu A cannot be ruled out. Flu A angiten in the sample may be below the detection limit of the test. Performed By: #### B MP, LIPA, YVETTE, LIVER #### [facility] [address] [place] [address] Dr. [facility] Normal [facility] Comment on above: Result Comment: Nega tive for Flu B protein antigen. Infection due to Flu B cannot be ruled out. Flu B antigen in the sample may be below the detection limit of the test. Performed By: #### B MP, LIPA, YVETTE, LIVER #### [facility] [address] [place] [address] Dr. Idania Roldan INFLUENZA A AG Negative Normal NEGATIVE SEE COMMENT [facility] Comment on above: Performed By: #### B MP, LIPA, YVETTE, LIVER #### [facility] [address] [place] [address] Dr. Idania Roldan INFLUENZA B AG Negative Normal NEGATIVE SEE COMMENT [facility] Comment on above: Performed By: #### B MP, LIPA, YVETTE, LIVER #### [facility] [address] [address] [address] Idania Roldan INTERNAL CONTROLS Within Normal Limits Normal Wi thin Normal Limits [facility] Comment on above: Performed By: #### B MP, LIPA, YVETTE, LIVER #### [facility] [address] [address] [address] Idania Roldan Covid-19 PCR ([facility])on 08-11 SARS-CoV-2 (COVID-19) RNA MAMIE+probe Ql (Unsp spec) Not detected Normal NOT DETECTED [facility] Comment on above: Result Comment: This test is not yet approved or cleared by the [place] FDA. When there are no FDA-approved or cleared tests available, and other criteria are met, FDA can make tests available under an emergency access mechanism called an Emergency Use Authorization (EUA). The EUA for this test is supported by the Meter/Relay Technician of Health and Human Service's (HHS's) declaration [...] #### B MP, LIPA, YVETTE, LIVER #### [facility] [address] [place] [address] Dr. Idania Roldan CBC AUTO DIFFon 08-21-2022 BASO # 0.0 103/ul Normal 0.0-0.1 [facility] Comment on above: Performed By: #### P T, PTT #### [facility] [address] [address] [address] Idania Roldan Basophils/100 WBC (Bld) 0.4 % Normal 0.2-2.0 [facility] Comment on above: Performed By: #### P T, PTT #### [facility] [address] [place] [address] Dr. Idania Roldan EO # 0.1 103/ul Normal 0.0-0.7 [facility] Comment on above: Performed By: #### P T, PTT #### [facility] [address] [place] [address] Dr. Idania Roldan Eosinophils/100 WBC (Bld) 1.3 % Normal 0.9-7.0 [facility] Comment on above: Performed By: #### P T, PTT #### [facility] [address] [place] [address] Dr. Idania Roldan Erythrocyte distribution width (RBC) [Ratio] 15.3 % Critically high 11.0-15.0 [facility] Comment on above: Performed By: #### P T, PTT #### [facility] [address] [place] [address] Dr. Idania Roldan Hematocrit (Bld) [Volume fraction] 32.1 % Critically low 36.0-48.0 [facility] Comment on above: Performed By: #### P T, PTT #### [facility] [address] [place] [address] Dr. Idania Roldan Hemoglobin (Bld) [Mass/Vol] 9.9 g/dL Critically low 12.0-16.0 [facility] Comment on above: Performed By: #### P T, PTT #### [facility] [address] [place] [address] Dr. Idania Roldan IG # 0.01 10e3/ul Normal 0.00-0.03 [facility] Comment on above: Performed By: #### P T, PTT #### [facility] [address] [place] [address] Dr. Idania Roldan IG % 0.1 % Normal 0.0-0.5 [facility] Comment on above: Performed By: #### P T, PTT #### [facility] [address] [place] [address] Dr. Idania Roldan LYMPH # 2.7 103/ul Normal 1.2-3.8 [facility] Comment on above: Performed By: #### P T, PTT #### [facility] [address] [place] [address] Dr. Idania Roldan Lymphocytes/100 WBC (Bld) 35.7 % Normal 20.5-60.0 [facility] Comment on above: Performed By: #### P T, PTT #### [facility] [address] [place] [address] Dr. Idania Roldan MANUAL DIFF REQ NO Normal [facility] Comment on above: Performed By: #### P T, PTT #### [facility] [address] [place] [address] Dr. Idania Roldan MCH (RBC) [Entitic mass] 24.8 pg Critically low 26.7-34.0 [facility] Comment on above: Performed By: #### P T, PTT #### [facility] [address] [place] [address] Dr. Idania Roldan MCHC (RBC) [Mass/Vol] 30.8 g/dL Normal 29.9-35.2 [facility] Comment on above: Performed By: #### P T, PTT #### [facility] [address] [place] [address] Dr. Idania Roldan MCV (RBC) [Entitic vol] 80.5 fL Critically low 81.0-99.0 [facility] Comment on above: Performed By: #### P T, PTT #### [facility] [address] [place] [address] Dr. Idania Roldan MONO # 0.5 103/ul Normal 0.3-0.8 [facility] Comment on above: Performed By: #### P T, PTT #### [facility] [address] [place] [address] Dr. Idania Roldan Monocytes/100 WBC (Bld) 6.1 % Normal 1.7-12.0 [facility] Comment on above: Performed By: #### P T, PTT #### [facility] [address] [place] [address] Dr. Idania Roldan NEUT # 4.2 103/ul Normal 1.4-6.5 [facility] Comment on above: Performed By: #### P T, PTT #### [facility] [address] [place] [address] Dr. Idania Roldan Neutrophils/100 WBC (Bld) 56.4 % Normal 43.0-75.0 [facility] Comment on above: Performed By: #### P T, PTT #### [facility] [address] [place] [address] Dr. Idania Roldan Platelet mean volume (Bld) [Entitic vol] 9.4 fL Critically low 9.5-13.5 [facility] Comment on above: Performed By: #### P T, PTT #### [facility] [address] [place] [address] Dr. Idania Roldan PLT 296 103/ul Normal 150-450 [facility] Comment on above: Performed By: #### P T, PTT #### [facility] [address] [place] [address] Dr. Idania Roldan RBC 3.99 106/ul Critically low 4.20-5.40 [facility] Comment on above: Performed By: #### P T, PTT #### [facility] [address] [place] [address] Dr. Idania Roldan WBC 7.5 103/ul Normal 4.0-11.0 [facility] Comment on above: Performed By: #### P T, PTT #### [facility] [address] [place] [address] ABD/PELV W CONon [...] RUSSELL DUFF Date: 2022-08-21 12:35 Normal [facility] ER URINE PROFILEon 2 Bilirubin Ql (U) Unable to perform te sting due to color interference. Abnormal NEGATIVE [facility] Comment on above: Performed By: #### B MP, LIPA, YVETTE, LIVER #### [facility] [address] [address] [address] Idania Roldan Clarity (U) TURBID Abnormal CLEAR [facility] Comment on above: Performed By: #### B MP, LIPA, YVETTE, LIVER #### [facility] [address] [address] [address] Idania Roldan Color (U) RED Abnormal YELLOW [facility] Comment on above: Performed By: #### B MP, LIPA, YVETTE, LIVER #### [facility] [address] [address] [address] Idania Roldan ERUAHD A micrscopic examina tion will be performed if indicated. Normal [facility] Comment on above: Performed By: #### B MP, LIPA, YVETTE, LIVER #### [facility] [address] [address] [address] Idania Roldan Glucose Ql (U) Unable to perform te sting due to color interference. Abnormal NEGATIVE [facility] Comment on above: Performed By: #### B MP, LIPA, YVETTE, LIVER #### [facility] [address] [place] [address] Dr. Idania Roldan Hemoglobin Ql (U) Unable to perform te sting due to color interference. Abnormal NEGATIVE [facility] Comment on above: Performed By: #### B MP, LIPA, YVETTE, LIVER #### [facility] [address] [place] [address] Dr. Idania Roldan Ketones Ql (U) Unable to perform te sting due to color interference. Abnormal NEGATIVE [facility] Comment on above: Performed By: #### B MP, LIPA, YVETTE, LIVER #### [facility] [address] [place] [address] Dr. Idania Roldan LEUKOCYTES Unable to perform te sting due to color interference. Abnormal NEGATIVE [facility] Comment on above: Performed By: #### B MP, LIPA, YVETTE, LIVER #### [facility] [address] [place] [address] Dr. Idania Roldan Nitrite Ql (U) Unable to perform te sting due to color interference. Abnormal NEGATIVE [facility] Comment on above: Performed By: #### B MP, LIPA, YVETTE, LIVER #### [facility] [address] [place] [address] Dr. Idania Roldan pH Unable to perform te sting due to color interference. Abnormal 5-9 [facility] Comment on above: Performed By: #### B MP, LIPA, YVETTE, LIVER #### [facility] [address] [place] [address] Dr. Idania Roldan SPEC GRAVITY 1.020 Normal 1.005-<=1.[address] [facility] Comment on above: Performed By: #### B MP, LIPA, YVETTE, LIVER #### [facility] [address] [place] [address] Dr. Idania Roldan UA PROTEIN Unable to perform te sting due to color interference. Normal NEGATIVE/ TRACE [facility] Comment on above: Performed By: #### B MP, LIPA, YVETTE, LIVER #### [facility] [address] [place] [address] Dr. Idania Roldan UR MICRO IND INDICATED Normal [facility] Comment on above: Performed By: #### B MP, LIPA, YVETTE, LIVER #### [facility] [address] [place] [address] Dr. Idania Roldan UROBILINOGEN Unable to perform te sting due to color interference. Normal 0.2 - 1.0 [facility] Comment on above: Performed By: #### B MP, LIPA, YVETTE, LIVER #### [facility] [address] [place] [address] Dr. Idania Roldan PROF 14(COMP METB)on 022 Albumin [Mass/Vol] 4.2 g/dL Normal 3.4-5.0 [facility] Comment on above: Performed By: #### P T, PTT #### [facility] [address] [place] [address] Dr. Idania Roldan Albumin/Globulin [Mass ratio] 1.0 {ratio} Normal [facility] Comment on above: Performed By: #### P T, PTT #### [facility] [address] [place] [address] Dr. Idania Roldan ALP [Catalytic activity/Vol] 91 U/L Normal 46-116 [facility] Comment on above: Performed By: #### P T, PTT #### [facility] [address] [place] [address] Dr. Idania Roldan ALT [Catalytic activity/Vol] 15 U/L Normal 14-59 [facility] Comment on above: Performed By: #### P T, PTT #### [facility] [address] [place] [address] Dr. Idania Roldan Anion gap [Moles/Vol] 9.6 mmol/L Normal [facility] Comment on above: Performed By: #### P T, PTT #### [facility] [address] [place] [address] Dr. Idania Roldan AST [Catalytic activity/Vol] 14 U/L Critically low 15-37 [facility] Comment on above: Performed By: #### P T, PTT #### [facility] [address] [place] [address] Dr. Idania Roldan Bilirubin [Mass/Vol] 0.2 mg/dL Normal 0.2-1.0 [facility] Comment on above: Performed By: #### P T, PTT #### [facility] [address] [place] [address] Dr. Idania Roldan Calcium [Mass/Vol] 9.2 mg/dL Normal 8.5-10.1 [facility] Comment on above: Performed By: #### P T, PTT #### [facility] [address] [place] [address] Dr. Idania Roldan Chloride [Moles/Vol] 103 mmol/L Normal 98-107 [facility] Comment on above: Performed By: #### P T, PTT #### [facility] [address] [place] [address] Dr. Idania Roldan CO2 [Moles/Vol] 31.2 mmol/L Normal 21.0-32.0 [facility] Comment on above: Performed By: #### P T, PTT #### [facility] [address] [place] [address] Dr. Idania Roldan Creatinine [Mass/Vol] 0.76 mg/dL Normal 0.55-1.02 [facility] Comment on above: Performed By: #### P T, PTT #### [facility] [address] [place] [address] Dr. Idania Roldan EGFR-AF IRAQI >60 Normal >=60 [facility] Comment on above: Performed By: #### P T, PTT #### [facility] [address] [place] [address] Dr. Idania Roldan EGFR-NON AF IRAQI >60 Normal >=60 [facility] Comment on above: Performed By: #### P T, PTT #### [facility] [address] [place] [address] Dr. Idania Roldan Globulin (S) [Mass/Vol] 4.2 g/dL Normal [facility] Comment on above: Performed By: #### P T, PTT #### [facility] [address] [place] [address] Dr. Idania Roldan Glucose [Mass/Vol] 107 mg/dL Critically high 74-106 [facility] Comment on above: Performed By: #### P T, PTT #### [facility] [address] [place] [address] Dr. Idania Roldan Potassium [Moles/Vol] 3.8 mmol/L Normal 3.5-5.1 [facility] Comment on above: Performed By: #### P T, PTT #### [facility] [address] [place] [address] Dr. Idania Roldan Protein [Mass/Vol] 8.4 g/dL Critically high 6.4-8.2 [facility] Comment on above: Performed By: #### P T, PTT #### [facility] [address] [place] [address] Dr. Idania Roldan Sodium [Moles/Vol] 140 mmol/L Normal 136-145 [facility] Comment on above: Performed By: #### P T, PTT #### [facility] [address] [place] [address] Dr. Idania Roldan Urea nitrogen [Mass/Vol] 12.0 mg/dL Normal 7.0-18.0 [facility] Comment on above: Performed By: #### P T, PTT #### [facility] [address] [place] [address] Dr. Idania Roldan Urea nitrogen/Creatinine [Mass ratio] 15.8 mg/mg Normal [facility] Comment on above: Performed By: #### P T, PTT #### [facility] [address] [place] [address] Dr. Idania Roldan URINE MICROSCOPIC ONLYon BACTERIA NONE SEEN Normal NONE SEEN [facility] Comment on above: Performed By: #### B MP, LIPA, YVETTE, LIVER #### [facility] [address] [place] [address] Dr. Idania Roldan Bacteria identified Cx Nom (U) NOT INDICATED Normal [facility] Comment on above: Performed By: #### B MP, LIPA, YVETTE, LIVER #### [facility] [address] [place] [address] Dr. Idania Roldan CAST NONE SEEN Normal NONE SEEN [facility] Comment on above: Performed By: #### B MP, LIPA, YVETTE, LIVER #### [facility] [address] [place] [address] Dr. Idania Roldan Crystals LM Nom (Urine sed) NONE SEEN Normal NONE SEEN [facility] Comment on above: Performed By: #### B MP, LIPA, YVETTE, LIVER #### [facility] [address] [place] [address] Dr. Idania Roldan Epithelial cells LM Ql (Urine sed) RARE Normal NONE SEEN /RARE [facility] Comment on above: Performed By: #### B MP, LIPA, YVETTE, LIVER #### [facility] [address] [place] [address] Dr. Idania Roldan MUCOUS NONE SEEN Normal NONE SEEN [facility] Comment on above: Performed By: #### B MP, LIPA, YVETTE, LIVER #### [facility] [address] [place] [address] Dr. Idania Roldan RBC (U) [#/Vol] /uL Abnormal 0-2 [facility] Comment on above: Performed By: #### B MP, LIPA, YVETTE, LIVER #### [facility] [address] [place] [address] Dr. Idania Roldan WBC 2-5 Abnormal NONE SEEN [facility] Comment on above: Performed By: #### B MP, LIPA, YVETTE, LIVER #### [facility] [address] [place] [address] Dr. Idania Roldan CBC AUTO DIFFon 08-19-2022 BASO # 0.0 103/ul Normal 0.0-0.1 [facility] Comment on above: Performed By: #### P T, PTT #### [facility] [address] [place] [address] Dr. Idania Roldan Basophils/100 WBC (Bld) 0.4 % Normal 0.2-2.0 [facility] Comment on above: Performed By: #### P T, PTT #### [facility] [address] [place] [address] Dr. Idania Roldan EO # 0.1 103/ul Normal 0.0-0.7 [facility] Comment on above: Performed By: #### P T, PTT #### [facility] [address] [place] [address] Dr. Idania Roldan Eosinophils/100 WBC (Bld) 2.0 % Normal 0.9-7.0 [facility] Comment on above: Performed By: #### P T, PTT #### [facility] [address] [place] [address] Dr. Idania Roldan Erythrocyte distribution width (RBC) [Ratio] 14.8 % Normal 11.0-15.0 [facility] Comment on above: Performed By: #### P T, PTT #### [facility] [address] [place] [address] Dr. Idania Roldan Hematocrit (Bld) [Volume fraction] 31.5 % Critically low 36.0-48.0 [facility] Comment on above: Performed By: #### P T, PTT #### [facility] [address] [place] [address] Dr. Idania Roldan Hemoglobin (Bld) [Mass/Vol] 9.5 g/dL Critically low 12.0-16.0 [facility] Comment on above: Performed By: #### P T, PTT #### [facility] [address] [place] [address] Dr. Idania Roldan IG # 0.01 10e3/ul Normal 0.00-0.03 [facility] Comment on above: Performed By: #### P T, PTT #### [facility] [address] [place] [address] Dr. Idania Roldan IG % 0.2 % Normal 0.0-0.5 [facility] Comment on above: Performed By: #### P T, PTT #### [facility] [address] [place] [address] Dr. Idania Roldan LYMPH # 1.4 103/ul Normal 1.2-3.8 [facility] Comment on above: Performed By: #### P T, PTT #### [facility] [address] [place] [address] Dr. Idania Roldan Lymphocytes/100 WBC (Bld) 29.9 % Normal 20.5-60.0 [facility] Comment on above: Performed By: #### P T, PTT #### [facility] [address] [place] [address] Dr. Idania Roldan MANUAL DIFF REQ NO Normal [facility] Comment on above: Performed By: #### P T, PTT #### [facility] [address] [place] [address] Dr. Idania Roldan MCH (RBC) [Entitic mass] 24.4 pg Critically low 26.7-34.0 [facility] Comment on above: Performed By: #### P T, PTT #### [facility] [address] [place] [address] Dr. Idania Roldan MCHC (RBC) [Mass/Vol] 30.2 g/dL Normal 29.9-35.2 [facility] Comment on above: Performed By: #### P T, PTT #### [facility] [address] [place] [address] Dr. Idania Roldan MCV (RBC) [Entitic vol] 80.8 fL Critically low 81.0-99.0 [facility] Comment on above: Performed By: #### P T, PTT #### [facility] [address] [place] [address] Dr. Idania Roldan MONO # 0.2 103/ul Critically low 0.3-0.[address] [facility] Comment on above: Performed By: #### P T, PTT #### [facility] [address] [place] [address] Dr. Idania Roldan Monocytes/100 WBC (Bld) 5.2 % Normal 1.7-12.0 [facility] Comment on above: Performed By: #### P T, PTT #### [facility] [address] [place] [address] Dr. Idania Roldan NEUT # 2.9 103/ul Normal 1.4-6.5 [facility] Comment on above: Performed By: #### P T, PTT #### [facility] [address] [address] [address] Idania Roldan Neutrophils/100 WBC (Bld) 62.3 % Normal 43.0-75.0 [facility] Comment on above: Performed By: #### P T, PTT #### [facility] [address] [address] [address] Idania Roldan Platelet mean volume (Bld) [Entitic vol] 8.6 fL Critically low 9.5-13.5 [facility] Comment on above: Performed By: #### P T, PTT #### [facility] [address] [address] [address] Idania Roldan PLT 269 103/ul Normal 150-450 [facility] Comment on above: Performed By: #### P T, PTT #### [facility] [address] [place] [address] Dr. Idania Roldan RBC 3.90 106/ul Critically low 4.20-5.40 [facility] Comment on above: Performed By: #### P T, PTT #### [facility] [address] [place] [address] Dr. Idania Roldan WBC 4.6 103/ul Normal 4.0-11.0 [facility] Comment on above: Performed By: #### P T, PTT #### [facility] [address] [place] [address] Dr. Idania Roldan PROF CHEM 8 (BAS METB)on Anion gap [Moles/Vol] 9.0 mmol/L Normal [facility] Comment on above: Performed By: #### B MP, LIPA, YVETTE, LIVER #### [facility] [address] [place] [address] Dr. Idania Roldan Calcium [Mass/Vol] 9.1 mg/dL Normal 8.5-10.1 [facility] Comment on above: Performed By: #### B MP, LIPA, YVETTE, LIVER #### [facility] [address] [address] [address] Idania Roldan Chloride [Moles/Vol] 104 mmol/L Normal 98-107 [facility] Comment on above: Performed By: #### B MP, LIPA, YVETTE, LIVER #### [facility] [address] [address] [address] Idania Roldan CO2 [Moles/Vol] 31.5 mmol/L Normal 21.0-32.0 [facility] Comment on above: Performed By: #### B MP, LIPA, YVETTE, LIVER #### [facility] [address] [place] [address] Dr. Idania Roldan Creatinine [Mass/Vol] 0.59 mg/dL Normal 0.55-1.02 [facility] Comment on above: Performed By: #### B MP, LIPA, YVETTE, LIVER #### [facility] [address] [place] [address] Dr. Idania Roldan EGFR-AF IRAQI >60 Normal >=60 [facility] Comment on above: Performed By: #### B MP, LIPA, YVETTE, LIVER #### [facility] [address] [place] [address] Dr. Idania Roldan EGFR-NON AF IRAQI >60 Normal >=60 [facility] Comment on above: Performed By: #### B MP, LIPA, YVETTE, LIVER #### [facility] [address] [place] [address] Dr. Idania Roldan Glucose [Mass/Vol] 90 mg/dL Normal 74-106 [facility] Comment on above: Performed By: #### B MP, LIPA, YVETTE, LIVER #### [facility] [address] [address] [address] Idania Roldan Potassium [Moles/Vol] 4.5 mmol/L Normal 3.5-5.1 [facility] Comment on above: Performed By: #### B MP, LIPA, YVETTE, LIVER #### [facility] [address] [place] [address] Dr. Idania Roldan Sodium [Moles/Vol] 140 mmol/L Normal 136-145 [facility] Comment on above: Performed By: #### B MP, LIPA, YVETTE, LIVER #### [facility] [address] [place] [address] Dr. Idania Roldan Urea nitrogen [Mass/Vol] 8.0 mg/dL Normal 7.0-18.0 [facility] Comment on above: Performed By: #### B MP, LIPA, YVETTE, LIVER #### [facility] [address] [place] [address] Dr. Idania Roldan Urea nitrogen/Creatinine [Mass ratio] 13.6 mg/mg Normal [facility] Comment on above: Performed By: #### B MP, LIPA, YVETTE, LIVER #### [facility] [address] [place] [address] Dr. Idania Roldan PROTIMEon 08-19-2022 INR Coag (PPP) [Relative time] 0.93 {INR} Normal [facility] Comment on above: Performed By: #### B MP, LIPA, YVETTE, LIVER #### [facility] [address] [place] [address] Dr. Idania Roldan INR GUIDELINES SEE BELOW Normal The [facility] Comment on above: Result Comment: TARUN RED INR: 2.0 - 3.0 CONDITIONS NOT LISTED BELOW 2.5 - 3.5 FOR PROSTHETIC HEART VALVE REPLACEMENT 2.5 - 3.5 RECURRENT THROMBOSIS Performed By: #### B MP, LIPA, YVETTE, LIVER #### [facility] [address] [place] [address] Dr. Idania Roldan PT Coag (PPP) [Time] 10.1 s Normal 9.0-11.6 [facility] Comment on above: Performed By: #### B MP, LIPA, YVETTE, LIVER #### [facility] [address] [place] [address] Dr. Idania Roldan PTTon 08-19-2022 aPTT Coag (Bld) [Time] 28.1 s Normal 22.3-36.2 [facility] Comment on above: Performed By: #### B MP, LIPA, YVETTE, LIVER #### [facility] [address] [place] [address] Dr. Idania Roldan [facility] SARS-CoV-2 (COVID-19) RNA MAMIE+probe Ql (Unsp spec) Not detected Normal NOT DETECTED [facility] Comment on above: Result Comment: This test is not yet approved or cleared by the [place] FDA. When there are no FDA-approved or cleared tests available, and other criteria are met, FDA can make tests available under an emergency access mechanism called an Emergency Use Authorization (EUA). The EUA for this test is supported by the Meter/Relay Technician of Health and Human Service's (HHS's) declaration [...] Performed By: #### P T, PTT #### [facility] [address] [place] [address] Dr. Idania Roldan CBC AUTO DIFFon 07-10-2022 BASO # 0.0 103/ul Normal 0.0-0.1 [facility] Comment on above: Performed By: #### P T, PTT #### [facility] [address] [place] [address] Dr. Idania Roldan Basophils/100 WBC (Bld) 0.2 % Normal 0.2-2.0 [facility] Comment on above: Performed By: #### P T, PTT #### [facility] [address] [place] [address] Dr. Idania Roldan EO # 0.1 103/ul Normal 0.0-0.7 [facility] Comment on above: Performed By: #### P T, PTT #### [facility] [address] [place] [address] Dr. Idania Roldan Eosinophils/100 WBC (Bld) 1.3 % Normal 0.9-7.0 [facility] Comment on above: Performed By: #### P T, PTT #### [facility] [address] [place] [address] Dr. Idania Roldan Erythrocyte distribution width (RBC) [Ratio] 16.4 % Critically high 11.0-15.0 [facility] Comment on above: Performed By: #### P T, PTT #### [facility] [address] [place] [address] Dr. Idania Roldan Hematocrit (Bld) [Volume fraction] 33.2 % Critically low 36.0-48.0 [facility] Comment on above: Performed By: #### P T, PTT #### [facility] [address] [place] [address] Dr. Idania Roldan Hemoglobin (Bld) [Mass/Vol] 10.3 g/dL Critically low 12.0-16.0 [facility] Comment on above: Performed By: #### P T, PTT #### [facility] [address] [place] [address] Dr. Idania Roldan IG # 0.01 10e3/ul Normal 0.00-0.03 [facility] Comment on above: Performed By: #### P T, PTT #### [facility] [address] [place] [address] Dr. Idania Roldan IG % 0.2 % Normal 0.0-0.5 [facility] Comment on above: Performed By: #### P T, PTT #### [facility] [address] [place] [address] Dr. Idania Roldan LYMPH # 1.8 103/ul Normal 1.2-3.8 [facility] Comment on above: Performed By: #### P T, PTT #### [facility] [address] [place] [address] Dr. Idania Roldan Lymphocytes/100 WBC (Bld) 38.8 % Normal 20.5-60.0 [facility] Comment on above: Performed By: #### P T, PTT #### [facility] [address] [place] [address] Dr. Idania Roldan MANUAL DIFF REQ NO Normal [facility] Comment on above: Performed By: #### P T, PTT #### [facility] [address] [place] [address] Dr. Idania Roldan MCH (RBC) [Entitic mass] 25.9 pg Critically low 26.7-34.0 [facility] Comment on above: Performed By: #### P T, PTT #### [facility] [address] [place] [address] Dr. Idania Roldan MCHC (RBC) [Mass/Vol] 31.0 g/dL Normal 29.9-35.2 [facility] Comment on above: Performed By: #### P T, PTT #### [facility] [address] [place] [address] Dr. Idania Roldan MCV (RBC) [Entitic vol] 83.4 fL Normal 81.0-99.0 [facility] Comment on above: Performed By: #### P T, PTT #### [facility] [address] [place] [address] Dr. Idania Roldan MONO # 0.3 103/ul Normal 0.3-0.8 [facility] Comment on above: Performed By: #### P T, PTT #### [facility] [address] [place] [address] Dr. Idania Roldan Monocytes/100 WBC (Bld) 6.1 % Normal 1.7-12.0 [facility] Comment on above: Performed By: #### P T, PTT #### [facility] [address] [place] [address] Dr. Idania Roldan NEUT # 2.5 103/ul Normal 1.4-6.5 [facility] Comment on above: Performed By: #### P T, PTT #### [facility] [address] [place] [address] Dr. Idania Roldan Neutrophils/100 WBC (Bld) 53.4 % Normal 43.0-75.0 [facility] Comment on above: Performed By: #### P T, PTT #### [facility] [address] [place] [address] Dr. Idania Roldan Platelet mean volume (Bld) [Entitic vol] 10.1 fL Normal 9.5-13.5 [facility] Comment on above: Performed By: #### P T, PTT #### [facility] [address] [place] [address] Dr. Idania Roldan PLT 239 103/ul Normal 150-450 [facility] Comment on above: Performed By: #### P T, PTT #### [facility] [address] [place] [address] Dr. Idania Roldan RBC 3.98 106/ul Critically low 4.20-5.40 [facility] Comment on above: Performed By: #### P T, PTT #### [facility] [address] [place] [address] Dr. Idania Roldan WBC 4.6 103/ul Normal 4.0-11.0 [facility] Comment on above: Performed By: #### P T, PTT #### [facility] [address] [place] [address] Dr. Idania Roldan PROF CHEM 8 (BAS METB)on Anion gap [Moles/Vol] 8.4 mmol/L Normal [facility] Comment on above: Performed By: #### B MP #### [facility] [address] [place] [address] Dr. Idania Roldan Calcium [Mass/Vol] 9.3 mg/dL Normal 8.5-10.1 [facility] Comment on above: Performed By: #### B MP #### [facility] [address] [place] [address] Dr. Idania Roldan Chloride [Moles/Vol] 103 mmol/L Normal 98-107 [facility] Comment on above: Performed By: #### B MP #### [facility] [address] [place] [address] Dr. Idania Roldan CO2 [Moles/Vol] 32.9 mmol/L Critically high 21.0-32.0 [facility] Comment on above: Performed By: #### B MP #### [facility] [address] [place] [address] Dr. Idania Roldan Creatinine [Mass/Vol] 0.70 mg/dL Normal 0.55-1.02 [facility] Comment on above: Performed By: #### B MP #### [facility] [address] [address] [address] Idania Roldan EGFR-AF IRAQI >60 Normal >=60 [facility] Comment on above: Performed By: #### B MP #### [facility] [id number] Idania Roldan EGFR-NON AF IRAQI >60 Normal >=60 [facility] Comment on above: Performed By: #### B MP #### [facility] [address] [address] [address] Idania Roldan Glucose [Mass/Vol] 73 mg/dL Critically low 74-106 [facility] Comment on above: Performed By: #### B MP #### [facility] [address] [address] [address] Idania Roldan Potassium [Moles/Vol] 4.3 mmol/L Normal 3.5-5.1 [facility] Comment on above: Performed By: #### B MP #### [facility] [address] [address] [address] Idania Roldan Sodium [Moles/Vol] 140 mmol/L Normal 136-145 [facility] Comment on above: Performed By: #### B MP #### [facility] [address] [address] [address] Idania Roldan Urea nitrogen [Mass/Vol] 16.0 mg/dL Normal 7.0-18.0 [facility] Comment on above: Performed By: #### B MP #### [facility] [address] [address] [address] Idania Roldan Urea nitrogen/Creatinine [Mass ratio] 22.9 mg/mg Normal [facility] Comment on above: Performed By: #### B MP #### [facility] [address] [address] [address] Idania Roldan PROTIMEon 07-10-2022 INR Coag (PPP) [Relative time] 1.00 {INR} Normal [facility] Comment on above: Performed By: #### P T, PTT #### [facility] [address] [address] [address] Idania Roldan INR GUIDELINES SEE BELOW Normal [facility] Comment on above: Result Comment: TARUN RED INR: 2.0 - 3.0 CONDITIONS NOT LISTED BELOW 2.5 - 3.5 FOR PROSTHETIC HEART VALVE REPLACEMENT 2.5 - 3.5 RECURRENT THROMBOSIS Performed By: #### P T, PTT #### [facility] [address] [address] [address] Idania Roldan PT Coag (PPP) [Time] 10.8 s Normal 9.0-11.6 [facility] Comment on above: Performed By: #### P T, PTT #### [facility] [address] [place] [address] Dr. Idania Roldan PTTon 07-10-2022 aPTT Coag (Bld) [Time] 29.3 s Normal 22.3-36.2 [facility] Comment on above: Performed By: #### P T, PTT #### [facility] [address] [place] [address] Dr. Idania Roldan Operative Reporton 2 Operative Report MR#: [id number] [facility] Pt. Name: Elvi Moore Room #: [id number] Discharge 06/01/2022 Date: Birthdate: 1980 OPERATIVE REPORT DATE OF SURGERY: 06/01/2022 SURGEON: Kevin Lane M.D. FRUIT RAISER: Duy Cavazos ANESTHESIA: General anesthesia. ESTIMATED BLOOD [...] arthrotomy was closed with soft #2 interrupted [id number] suture. The remainder of the incision closed in layered fashion. Sterile dressing applied. At the conclusion of the case, all sponge and needle counts correct. I was present for the critical portions of this case. Electronically Signed by: Kevin Lane M.D. 06/09/2022 07:[address] M.D. Date Dict: 06/03/2022/07:15 A/Kevin Lane M.D. Date Trans: 06/03/2022 08:09 A/taylor [id number] cc: Arleth Acharya M.D. [address], [facility] [address] [facility] *ANAEROBIC CULTUREon 022 *ANAEROBIC CULTURE Clinical Report: (D) Specimen/Source: FLUID/INTRAOP SPEC Collected: 06/01/2022 14:08 Status: Final Last Updated: 06/06/2022 06:35 (1) 1. LEFT KNEE JOINT FLUID CULT RES (Final) No Anaerobes Isolated [address] [facility] Comment on above: Order Comment: 1. LE FT KNEE JOINT FLUID Performed By: #### 3 0312 ####[place] [address] [address] *ANAEROBIC CULTURE Clinical Report: (D) Specimen/Source: TISSUE/INTRAOP SPEC Collected: 06/01/2022 14:08 Status: Final Last Updated: 06/06/2022 06:35 (1) 2. LEFT KNEE MEDIAL SYNOVIUM CULT RES (Final) No Anaerobes Isolated [address] [facility] Comment on above: Order Comment: 2. LE FT KNEE MEDIAL SYNOVIUM Performed By: #### 6 1405 #### [facility] [address] *ANAEROBIC CULTURE Clinical Report: (D) Specimen/Source: TISSUE/INTRAOP SPEC Collected: 06/01/2022 14:08 Status: Final Last Updated: 06/06/2022 06:35 (1) 3. LEFT KNEE LATERAL SYNOVIUM CULT RES (Final) No Anaerobes Isolated [address] [facility] Comment on above: Order Comment: 3. LE FT KNEE LATERAL SYNOVIUM Performed By: #### 6 1405 #### [facility] [address] *BODY FLUID CULTUREon 2021 *BODY FLUID CULTURE Clinical Report: (D) Specimen/Source: FLUID/INTRAOP SPEC Collected: 06/01/2022 14:08 Status: Final Last Updated: 06/06/2022 06:39 (1) 1. LEFT KNEE JOINT FLUID GRAM (Final) Quantity Not Sufficient CULT RES (Final) No Growth Day [address] [facility] Comment on above: Order Comment: 1. LE FT KNEE JOINT FLUID Performed By: #### 3 0318 ####[facility] [address] *TISSUE CULTUREon 06-01-2022 *TISSUE CULTURE Clinical Report: (D) Specimen/Source: TISSUE/INTRAOP SPEC Collected: 06/01/2022 14:08 Status: Final Last Updated: 06/06/2022 06:40 (1) 2. LEFT KNEE MEDIAL SYNOVIUM GRAM (Final) Many Polys No Bacteria Seen CULT RES (Final) No Growth Day [address] [facility] Comment on above: Order Comment: 2. LE FT KNEE MEDIAL SYNOVIUM Performed By: #### 3 0338 ####[facility] [address] *TISSUE CULTURE Clinical Report: (D) Specimen/Source: TISSUE/INTRAOP SPEC Collected: 06/01/2022 14:08 Status: Final Last Updated: 06/06/2022 06:39 (1) 3. LEFT KNEE LATERAL SYNOVIUM GRAM (Final) Many Polys No Bacteria Seen CULT RES (Final) No Growth Day [address] [facility] Comment on above: Order Comment: 3. LE FT KNEE LATERAL SYNOVIUM Performed By: #### 3 0338 ####[facility] [facility].[address] POC GLUCOSE LABon 06-01-2022 Glucose [Mass/Vol] 86 mg/dL Normal 70-[address] [facility] Comment on above: Performed By: #### 8 [id number] #### [facility] [address] PORTABLE KNEE LEFT 2 VWSon 0 06-01-2022 PORTABLE KNEE LEFT [address] [facility] Department of Radiology [address] [place] [address] Patient Name: ELVI MOORE : [...] planned Electronically signed: Yvette Andrade. Transcribed by: [email or web address], User Resident: Electronically Signed by: YVETTE ANDRADE @ 06/02/2022 08:[address] [facility] Comment on above: Order Comment: Hardw are Evaluation, in PACU *MRSA/MSSA DNA NASALon 05-26 *MRSA/MSSA DNA NASAL Clinical Report: (D) Specimen: NASAL SWAB Collected: 05/26/2022 15:23 Status: Final Last Updated: 05/27/2022 13:43 MSSA DNA (Final) Negative MRSA DNA (Final) Negative Normal [facility] Comment on above: Performed By: #### 3 1595 #### [facility] [address] C REACTIVE PROTEINon 022 CRP [Mass/Vol] 1.3 mg/L Normal 0.0-7.[address] [facility] Comment on above: Performed By: #### 6 1405 #### [facility] [address] CBC W/DIFFon 05-26-2022 ABS IMM GRANS 0.0 10*3/uL Normal 0.0-0.[address] [facility] Comment on above: Performed By: #### 6 1405 #### [facility] [address] ABS NEUTROPHILS 2.5 10*3/uL Normal 1.6-7.[address] [facility] Comment on above: Performed By: #### 6 1405 #### [facility] [address] [place] [address], [facility] Basophils (Bld) [#/Vol] 0.0 10*3/uL Normal 0.0-0.[address] [facility] Comment on above: Performed By: #### 6 1405 #### [facility] [address] [place] [address], [facility] Basophils/100 WBC (Bld) 0.3 % Normal 0.0-1.[address] [facility] Comment on above: Performed By: #### 6 1405 #### [facility] [address] [facility] [place] [address], [facility] Eosinophils (Bld) [#/Vol] 0.1 10*3/uL Normal 0.0-0.[address] [facility] Comment on above: Performed By: #### 6 1405 #### [facility] [address] [facility] [place] [address], [facility] Eosinophils/100 WBC (Bld) 1.5 % Normal 0.0-6.[address] [facility] Comment on above: Performed By: #### 6 1405 #### [facility] [address] [facility]. [address] Erythrocyte distribution width (RBC) [Ratio] 15.9 % High 11.5-15.[address] [facility] Comment on above: Performed By: #### 6 1405 #### [facility] [address] [facility] [place] [address], [facility] Hematocrit (Bld) [Volume fraction] 35.0 % Low 36.0-45.[address] [facility] Comment on above: Performed By: #### 6 1405 #### [facility] [address] [facility] [place] [address], [facility] Hemoglobin (Bld) [Mass/Vol] 10.6 g/dL Low 12.0-15.[address] [facility] Comment on above: Performed By: #### 6 1405 #### [facility] [address] IMMATURE GRANS 0.2 % Normal 0.0-1.[address] [facility] Comment on above: Performed By: #### 6 1405 #### [facility] [address] Lymphocytes (Bld) [#/Vol] 2.8 10*3/uL Normal 1.2-4.[address] [facility] Comment on above: Performed By: #### 6 1405 #### [facility] [address] Lymphocytes/100 WBC (Bld) 48.0 % High 20.0-45.[address] [facility] Comment on above: Performed By: #### 6 1405 #### [facility] [address] MCH (RBC) [Entitic mass] 24.5 pg Low 27.0-33.[address] [facility] Comment on above: Performed By: #### 6 1405 #### [facility] [address] MCHC (RBC) [Mass/Vol] 30.3 g/dL Low 32.0-35.[address] [facility] Comment on above: Performed By: #### 6 1405 #### [facility] [address] MCV (RBC) [Entitic vol] 81.0 fL Low 82.0-98.[address] [facility] Comment on above: Performed By: #### 6 1405 #### [facility] [address] Monocytes (Bld) [#/Vol] 0.4 10*3/uL Normal 0.1-1.[address] [facility] Comment on above: Performed By: #### 6 1405 #### [facility] [address] [place] [address], [facility] MONOS 6.8 % Normal 5.0-12.[address] [facility] Comment on above: Performed By: #### 6 1405 #### [facility] [address] [place] [address], [facility] Neutrophils/100 WBC (Bld) 43.2 % Normal 40.0-72.[address] [facility] Comment on above: Performed By: #### 6 1405 #### [facility] [address] [place] [address], [place] Nucleated RBC/100 WBC (Bld) [Ratio] 0 % Normal 0-[address] [facility] Comment on above: Performed By: #### 6 1405 #### [facility] [address] [place] [address], [facility] PLAT CNT 246 10*3/uL Normal 150-[address] [facility] Comment on above: Performed By: #### 6 1405 #### [facility] [address] [facility] [place] [place] [address], [facility] RBC (Bld) [#/Vol] 4.32 10*6/uL Normal 3.80-5.[address] [facility] Comment on above: Performed By: #### 6 1405 #### [facility] [address] [place] [address], [place] WBC (Bld) [#/Vol] 5.87 10*3/uL Normal 4.00-10.[address] [facility] Comment on above: Performed By: #### 6 1405 #### [facility] [address] [facility] [place] [address], [facility] HEMOGLOBIN A1Con 05-26-2022 Glucose [Moles/Vol] 100 mmol/L Normal [facility] Comment on above: Performed By: #### 3 1791 #### [facility] [address] [place], [place] [id number] [place] [address] HbA1c (Bld) [Mass fraction] 5.1 % Normal 4.0-6.[address] [facility] Comment on above: Performed By: #### 3 1791 #### [facility] [address] [place] [address], [facility] SEDIMENTATION RATEon 022 SED RATE 17 mm/hr Normal 0-20 [facility] Comment on above: Performed By: #### 6 1405 #### [facility] [address] [place], [place] [id number] [place] [address] US KIDNEYS BLADDERon 022 US KIDNEYS BLADDER [...] RUSSELL DUFF Date: 2022-05-02 16:18 Normal [facility] CBC AUTO DIFFon 04-29-2022 BASO # 0.0 103/ul Normal 0.0-0.1 [facility] Comment on above: Performed By: #### B MP, LIPA, YVETTE, LIVER #### [facility] [address] [address] [address] Idania Roldan Basophils/100 WBC (Bld) 0.3 % Normal 0.2-2.0 [facility] Comment on above: Performed By: #### B MP, LIPA, YVETTE, LIVER #### [facility] [address] [place] [address] Dr. Idania Roldan EO # 0.1 103/ul Normal 0.0-0.7 [facility] Comment on above: Performed By: #### B MP, LIPA, YVETTE, LIVER #### [facility] [address] [place] [address] Dr. Idania Roldan Eosinophils/100 WBC (Bld) 0.9 % Normal 0.9-7.0 [facility] Comment on above: Performed By: #### B MP, LIPA, YVETTE, LIVER #### [facility] [address] [place] [address] Dr. Idania Roldan Erythrocyte distribution width (RBC) [Ratio] 15.4 % Critically high 11.0-15.0 [facility] Comment on above: Performed By: #### B MP, LIPA, YVETTE, LIVER #### [facility] [address] [place] [address] Dr. Idania Roldan Hematocrit (Bld) [Volume fraction] 36.0 % Normal 36.0-48.0 [facility] Comment on above: Performed By: #### B MP, LIPA, YVETTE, LIVER #### [facility] [address] [place] [address] Dr. Idania Roldan Hemoglobin (Bld) [Mass/Vol] 11.2 g/dL Critically low 12.0-16.0 [facility] Comment on above: Performed By: #### B MP, LIPA, YVETTE, LIVER #### [facility] [address] [place] [address] Dr. Idania Roldan IG # 0.02 10e3/ul Normal 0.00-0.03 [facility] Comment on above: Performed By: #### B MP, LIPA, YVETTE, LIVER #### [facility] [address] [place] [address] Dr. Idania Roldan IG % 0.3 % Normal 0.0-0.5 [facility] Comment on above: Performed By: #### B MP, LIPA, YVETTE, LIVER #### [facility] [address] [place] [address] Dr. Idania Roldan LYMPH # 2.5 103/ul Normal 1.2-3.8 [facility] Comment on above: Performed By: #### B MP, LIPA, YVETTE, LIVER #### [facility] [address] [place] [address] Dr. Idania Roldan Lymphocytes/100 WBC (Bld) 36.2 % Normal 20.5-60.0 [facility] Comment on above: Performed By: #### B MP, LIPA, YVETTE, LIVER #### [facility] [address] [place] [address] Dr. Idania Roldan MANUAL DIFF REQ NO Normal [facility] Comment on above: Performed By: #### B MP, LIPA, YVETTE, LIVER #### [facility] [address] [place] [address] Dr. Idania Roldan MCH (RBC) [Entitic mass] 24.9 pg Critically low 26.7-34.0 [facility] Comment on above: Performed By: #### B MP, LIPA, YVETTE, LIVER #### [facility] [address] [place] [address] Dr. Idania Roldan MCHC (RBC) [Mass/Vol] 31.1 g/dL Normal 29.9-35.2 [facility] Comment on above: Performed By: #### B MP, LIPA, YVETTE, LIVER #### [facility] [address] [place] [address] Dr. Idania Roldan MCV (RBC) [Entitic vol] 80.2 fL Critically low 81.0-99.0 [facility] Comment on above: Performed By: #### B MP, LIPA, YVETTE, LIVER #### [facility] [address] [place] [address] Dr. Idania Roldan MONO # 0.5 103/ul Normal 0.3-0.8 [facility] Comment on above: Performed By: #### B MP, LIPA, YVETTE, LIVER #### [facility] [address] [place] [address] Dr. Idania Roldan Monocytes/100 WBC (Bld) 6.7 % Normal 1.7-12.0 [facility] Comment on above: Performed By: #### B MP, LIPA, YVETTE, LIVER #### [facility] [address] [place] [address] Dr. Idania Roldan NEUT # 3.8 103/ul Normal 1.4-6.5 [facility] Comment on above: Performed By: #### B MP, LIPA, YVETTE, LIVER #### [facility] [address] [place] [address] Dr. Idania Roldan Neutrophils/100 WBC (Bld) 55.6 % Normal 43.0-75.0 [facility] Comment on above: Performed By: #### B MP, LIPA, YVETTE, LIVER #### [facility] [address] [place] [address] Dr. Idania Roldan Platelet mean volume (Bld) [Entitic vol] 9.9 fL Normal 9.5-13.5 [facility] Comment on above: Performed By: #### B MP, LIPA, YVETTE, LIVER #### [facility] [address] [place] [address] Dr. Idania Roldan PLT 265 103/ul Normal 150-450 [facility] Comment on above: Performed By: #### B MP, LIPA, YVETTE, LIVER #### [facility] [address] [place] [address] Dr. Idania Roldan RBC 4.49 106/ul Normal 4.20-5.40 [facility] Comment on above: Performed By: #### B MP, LIPA, YVETTE, LIVER #### [facility] [address] [place] [address] Dr. Idania Roldan WBC 6.8 103/ul Normal 4.0-11.0 [facility] Comment on above: Performed By: #### B MP, LIPA, YVETTE, LIVER #### [facility] [address] [place] [address] Dr. Idania Roldan ER URINE PROFILEon 2 Bilirubin Ql (U) Negative Normal NEGATIVE The [facility] Comment on above: Performed By: #### P T, PTT #### [facility] [address] [place] [address] Dr. Idania Roldan Clarity (U) CLEAR Normal CLEAR [facility] Comment on above: Performed By: #### P T, PTT #### [facility] [address] [place] [address] Dr. Idania Roldan Color (U) LT. YELLOW Normal YELLOW [facility] Comment on above: Performed By: #### P T, PTT #### [facility] [address] [place] [address] Dr. Idania Roldan ERULULI A micrscopic examina tion will be performed if indicated. Normal [facility] Comment on above: Performed By: #### P T, PTT #### [facility] [address] [place] [address] Dr. Idania Roldan Glucose Ql (U) Negative Normal NEGATIVE The [facility] Comment on above: Performed By: #### P T, PTT #### [facility] [address] [place] [address] Dr. Idania Roldan Hemoglobin Ql (U) LARGE Abnormal NEGATIVE The [facility] Comment on above: Performed By: #### P T, PTT #### [facility] [address] [place] [address] Dr. Idania Roldan Ketones Ql (U) Negative Normal NEGATIVE The [facility] Comment on above: Performed By: #### P T, PTT #### [facility] [address] [place] [address] Dr. Idania Roldan LEUKOCYTES TRACE Abnormal NEGATIVE [facility] Comment on above: Performed By: #### P T, PTT #### [facility] [address] [place] [address] Dr. Idania Roldan Nitrite Ql (U) Negative Normal NEGATIVE The [facility] Comment on above: Performed By: #### P T, PTT #### [facility] [address] [place] [address] Dr. Idania Roldan pH (U) 6.0 [pH] Normal 5-9 [facility] Comment on above: Performed By: #### P T, PTT #### [facility] [address] [place] [address] Dr. Idania Roldan SPEC GRAVITY 1.010 Normal 1.005-<=1.[address] [facility] Comment on above: Performed By: #### P T, PTT #### [facility] [address] [place] [address] Dr. Idania Roldan UA PROTEIN Negative Normal NEGATIVE/ TRACE [facility] Comment on above: Performed By: #### P T, PTT #### [facility] [address] [place] [address] Dr. Idania Roldan UR MICRO IND INDICATED Normal [facility] Comment on above: Performed By: #### P T, PTT #### [facility] [address] [place] [address] Dr. Idania Roldan Urobilinogen Qn (U) 0.2 {Bryan'U}/dL Normal 0.2 - 1. 0 [facility] Comment on above: Performed By: #### P T, PTT #### [facility] [address] [place] [address] Dr. Idania Roldan PROF CHEM 8 (BAS METB)on Anion gap [Moles/Vol] 10.9 mmol/L Normal [facility] Comment on above: Performed By: #### P T, PTT #### [facility] [address] [place] [address] Dr. Idania Roldan Calcium [Mass/Vol] 8.9 mg/dL Normal 8.5-10.1 [facility] Comment on above: Performed By: #### P T, PTT #### [facility] [address] [place] [address] Dr. Idania Roldan Chloride [Moles/Vol] 104 mmol/L Normal 98-107 [facility] Comment on above: Performed By: #### P T, PTT #### [facility] [address] [place] [address] Dr. Idania Roldan CO2 [Moles/Vol] 28.9 mmol/L Normal 21.0-32.0 The [facility] Comment on above: Performed By: #### P T, PTT #### [facility] [address] [address] [address] Idania Roldan Creatinine [Mass/Vol] 0.71 mg/dL Normal 0.55-1.02 [facility] Comment on above: Performed By: #### P T, PTT #### [facility] [address] [address] [address] Idania Roldan EGFR-AF IRAQI >60 Normal >=60 [facility] Comment on above: Performed By: #### P T, PTT #### [facility] [address] [address] [address] Idania Roldan EGFR-NON AF IRAQI >60 Normal >=60 [facility] Comment on above: Performed By: #### P T, PTT #### [facility] [address] [place] [address] Dr. Idania Roldan Glucose [Mass/Vol] 88 mg/dL Normal 74-106 [facility] Comment on above: Performed By: #### P T, PTT #### [facility] [address] [place] [address] Dr. Idania Roldan Potassium [Moles/Vol] 3.8 mmol/L Normal 3.5-5.1 [facility] Comment on above: Performed By: #### P T, PTT #### [facility] [address] [place] [address] Dr. Idania Roldan Sodium [Moles/Vol] 140 mmol/L Normal 136-145 [facility] Comment on above: Performed By: #### P T, PTT #### [facility] [address] [place] [address] Dr. Idania Roldan Urea nitrogen [Mass/Vol] 13.0 mg/dL Normal 7.0-18.0 [facility] Comment on above: Performed By: #### P T, PTT #### [facility] [address] [place] [address] Dr. Idania Roldan Urea nitrogen/Creatinine [Mass ratio] 18.3 mg/mg Normal [facility] Comment on above: Performed By: #### P T, PTT #### [facility] [address] [place] [address] Dr. Idania Roldan URINE MICROSCOPIC ONLYon BACTERIA NONE SEEN Normal NONE SEEN [facility] Comment on above: Performed By: #### P T, PTT #### [facility] [address] [place] [address] Dr. Idania Roldan Bacteria identified Cx Nom (U) NOT INDICATED Normal [facility] Comment on above: Performed By: #### P T, PTT #### [facility] [address] [place] [address] Dr. Idania Roldan CAST NONE SEEN Normal NONE SEEN [facility] Comment on above: Performed By: #### P T, PTT #### [facility] [address] [place] [address] Dr. Idania Roldan Crystals LM Nom (Urine sed) NONE SEEN Normal NONE SEEN [facility] Comment on above: Performed By: #### P T, PTT #### [facility] [address] [place] [address] Dr. Idania Roldan Epithelial cells LM Ql (Urine sed) FEW Abnormal NONE SEEN /RARE [facility] Comment on above: Performed By: #### P T, PTT #### [facility] [address] [place] [address] Dr. Idania Roldan MUCOUS NONE SEEN Normal NONE SEEN [facility] Comment on above: Performed By: #### P T, PTT #### [facility] [address] [place] [address] Dr. Idania Roldan RBC 50-75 Abnormal 0-2 [facility] Comment on above: Performed By: #### P T, PTT #### [facility] [address] [place] [address] Dr. Idania Roldan WBC 0-2 Abnormal NONE SEEN [facility] Comment on above: Performed By: #### P T, PTT #### [facility] [address] [place] [address] Dr. Idania Roldan XR ABD FLAT UP_PA [...] by: RUSSELL DUFF Date: 2022-04-29 13:[address] [facility] US KIDNEYS BLADDERon 022 US KIDNEYS BLADDER EXAMINATION: US [facility] BLADDER HISTORY: Kidney stone , left flank [...] by: RUSSELL DUFF Date: 2022-04-16 18:[address] [facility] CT LOWER EXTREMITY WO CONTRA ST LEFTon 04-07-2022 CT LOWER EXTREMITY WO CONTRAST LEFT [facility] Department of Radiology [address] [place] [id number] Patient Name: ELVI MOORE : 1980 [...] arthroplasty. Electronically signed: Elvis Perez. Transcribed by: [email or web address], User Resident: Electronically Signed by: ELVIS PEREZ @ 04/12/2022 09:[address] [facility] Comment on above: Order Comment: , lef t knee C REACTIVE PROTEINon 022 CRP [Mass/Vol] 2.2 mg/L Normal 0.0-7.[address] [facility] Comment on above: Performed By: #### 3 1791 #### [facility] [address] SEDIMENTATION RATEon SED RATE 30 mm/hr High 0-[address] [facility] Comment on above: Performed By: #### 5 6506 #### [facility] [address] KNEE LEFT 1 OR 2 VWSon 02-12 KNEE LEFT [address] [facility] Department of Radiology [address] [place] [address] Patient Name: ELVI MOORE : [...] report. Electronically signed: Sathya Christianson. Transcribed by: [email or web address], User Resident: Electronically Signed by: SATHYA CHRISTIANSON @ 02/13/2022 10:[address] [facility] Comment on above: Order Comment: KN EE REANNA Operative Reporton Operative Report MR#: [id number] [facility] Pt. Name: Elvi Moore Room #: 0C Discharge Date: Birthdate: 1980 OPERATIVE REPORT DATE OF SURGERY: 02/12/2022 SURGEON: Kevin Lane M.D. FRUIT RAISER: None. PREOPERATIVE DIAGNOSIS: Left total knee arthroplasty [...] Lane M.D. Date Trans: 02/12/2022 09:35 A/taylor [id number] cc: Arleth Acharya M.D. [address], [place] [address] [facility] POC GLUCOSE LABon 02-12-2022 Glucose [Mass/Vol] 96 mg/dL Normal 70-[address] [facility] Comment on above: Performed By: #### 8 5499 ####[facility] [facility], [place] [id number] [place] [address] C REACTIVE PROTEINon 022 CRP [Mass/Vol] 1.7 mg/L Normal 0.0-7.[address] [facility] Comment on above: Performed By: #### 6 1405 #### [facility] [address] [facility] [place] [address], [facility] SEDIMENTATION RATEon 022 SED RATE 18 mm/hr Normal 0-[address] [facility] Comment on above: Performed By: #### 6 1405 #### [facility] [address] [facility] [place] [address], [facility] KNEE LEFT 3 VWSon 12-26-[address] [facility] Department of Radiology [address] [place] [address] Patient Name: ELVI MOORE : 1980 Sex: F Age: Race: White Pt. Location: 84 Patient Status: Ordered Date: 12/26/2021 1:45:00 PM [...] report. Electronically signed: Yvette Desai. Transcribed by: [email or web address], User Resident: CHRISTELLE ABDI Electronically Signed by: YVETTE DESAI @ 12/26/2021 04:27 PM I personally read this/these film(s) with this resident Normal The [facility] Comment on above: Order Comment: , , = ========= , Ordering Provider - JORDEN BRODY CNP , KNEE LEFT 3 VWSon 12-09-[address] [facility] Department of Radiology [address] [place] [id number] Patient Name: ELVI MOORE : 1980 Sex: F Age: Race: White Pt. Location: Patient Status: D Ordered Date: 12/09/2021 9:30:00 AM Completed Date: 12/09/2021 09:37 AM Requesting Provider: JORDEN BRODY Attending Provider: JORDEN BRODY Report Copy To: Signs & Symptoms: Z47.1 Aftercare following joint replacement surgery I10 History: Tiffany Comments: Exam: KNEE LEFT 3 S KNEE LEFT 3 [facility] HISTORY: Knee replacement, follow-up. COMPARISON: 10/30/2021. IMPRESSION: 1. Redemonstrated knee arthroplasty, no hardware complication or acute abnormality. Small to moderate joint effusion. 2. Improving soft tissue changes. Electronically signed: Ezio Roberts. Transcribed by: [email or web address], User Resident: Electronically Signed by: EZIO ROBERTS @ 12/10/2021 08:[address] [facility] Operative Reporton Operative Report MR#: [id number] [facility] Pt. Name: Elvi Moore Room #: 0C Discharge Date: Birthdate: 1980 OPERATIVE REPORT DATE OF SURGERY: 10/30/2021 SURGEON: Kevin Lane M.D. FRUIT RAISER: 1. MD Waleska. 2. LAVON Quinones. ANESTHESIA: [...] arthrotomy was closed itself with #2 interrupted [id number] suture. The remainder of the incision was closed in a layered fashion. Sterile dressing was applied. At the conclusion of the case, all sponge and needle counts were correct. I was present for the critical portions of this case. Electronically Signed by: Kevin Lane M.D. 10/30/2021 07:[address] M.D. Date Dict: 10/30/2021/11:00 A/Kevin Lane M.D. Date Trans: 10/30/2021 12:34 P/mmo [id number] cc: Arleth Acharya M.D. [address] [facility] [place] [address] Nasir Thacker DO [address] [facility] [address] [facility] POC GLUCOSE LABon 10-30-2021 Glucose [Mass/Vol] 88 mg/dL Normal 70-[address] [facility] Comment on above: Performed By: #### 8 5499 ####[facility] [facility] [place] [address], [facility] PORTABLE KNEE LEFT 2 VWSon 0 10-30-2021 PORTABLE KNEE LEFT [address] [facility] Department of Radiology [address] [place] [id number] Patient Name: ELVI MOORE : 1980 [...] lateral please Exam: PORTABLE KNEE LEFT 2 [facility] PORTABLE KNEE LEFT 2 S 10/30/2021 10:58 [...] complication Electronically signed: Yvette Andrade. Transcribed by: [email or web address], User Resident: Electronically Signed by: YVETTE ANDRADE @ 10/30/2021 11:[address] [facility] Comment on above: Order Comment: Hardw are Evaluation, Postop PACU films for L knee s/p TKA. AP and lateral please *MRSA/MSSA DNA NASALon 10-07 *MRSA/MSSA DNA NASAL Clinical Report: (D) Specimen: NASAL SWAB Collected: 10/07/2021 10:51 Status: Final Last Updated: 10/07/2021 15:44 MSSA DNA (Final) Negative MRSA DNA (Final) Negative Normal The [facility] Comment on above: Performed By: #### 3 1595 ####[facility] [facility].[address] APTTon 10-07-2021 aPTT Coag (Bld) [Time] 32.2 s Normal 25.0-35.[address] [facility] Comment on above: Result Comment: [...] PURPOSE. Performed By: #### 3 1791 #### [facility] [address] [facility] [place] [address], [facility] BASIC METABOLIC PANELon - Calcium [Mass/Vol] 9.2 mg/dL Normal 8.6-10.[address] [facility] Comment on above: Performed By: #### 3 1791 #### [facility] [address] [place] [address], [place] Chloride [Moles/Vol] 106 mmol/L Normal 98-[address] [facility] Comment on above: Performed By: #### 3 1791 #### [facility] [address] [place] [address], [place] CO2 [Moles/Vol] 28 mmol/L Normal 21-[address] [facility] Comment on above: Performed By: #### 3 1791 #### [facility] [address] [place] [address], [place] Creatinine [Mass/Vol] 0.77 mg/dL Normal 0.60-1.[address] [facility] Comment on above: Performed By: #### 3 1791 #### [facility] [address] [place] [address], [place] GFR/1.73 sq M.predicted among blacks MDRD (S/P/Bld) [Vol rate/Area] mL/min/{1.73_m2} Normal >[address] [facility] Comment on above: Performed By: #### 3 1791 #### [facility] [address] [place] [address], [place] GFR/1.73 sq M.predicted among non-blacks MDRD (S/P/Bld) [Vol rate/Area] mL/min/{1.73_m2} Normal >[address] [facility] Comment on above: Performed By: #### 3 1791 #### [facility] [address] [place] [address], [place] Glucose [Mass/Vol] 84 mg/dL Normal 70-[address] [facility] Comment on above: Performed By: #### 3 1791 #### [facility] [address] [place] [address], [place] Potassium [Moles/Vol] 4.4 mmol/L Normal 3.5-5.[address] [facility] Comment on above: Performed By: #### 3 1791 #### [facility] [address] [place] [address], [place] Sodium [Moles/Vol] 142 mmol/L Normal 136-[address] [facility] Comment on above: Performed By: #### 3 1791 #### [facility] [address] [place] [address], [place] Urea nitrogen [Mass/Vol] 12 mg/dL Normal 7-[address] [facility] Comment on above: Performed By: #### 3 1791 #### [facility] [address] [place] [address], [facility] CBC W/DIFFon 10-07-2021 ABS IMM GRANS 0.0 10*3/uL Normal 0.0-0.[address] [facility] Comment on above: Performed By: #### 6 1405 #### [facility] [address] [place] [address], [facility] ABS NEUTROPHILS 4.7 10*3/uL Normal 1.6-7.[address] [facility] Comment on above: Performed By: #### 6 1405 #### [facility] [address] [place] [address], [facility] Basophils (Bld) [#/Vol] 0.0 10*3/uL Normal 0.0-0.[address] [facility] Comment on above: Performed By: #### 6 1405 #### [facility] [address] [place] [address], [facility] Basophils/100 WBC (Bld) 0.3 % Normal 0.0-1.[address] [facility] Comment on above: Performed By: #### 6 1405 #### [facility] [address] [facility] [place] [address], [facility] Eosinophils (Bld) [#/Vol] 0.2 10*3/uL Normal 0.0-0.[address] [facility] Comment on above: Performed By: #### 6 1405 #### [facility] [address] [place] [address], [facility] Eosinophils/100 WBC (Bld) 1.9 % Normal 0.0-6.[address] [facility] Comment on above: Performed By: #### 6 1405 #### [facility] [address] [facility] [place] [address], [facility] Erythrocyte distribution width (RBC) [Ratio] 14.0 % Normal 11.5-15.[address] [facility] Comment on above: Performed By: #### 6 1405 #### [facility] [address] [facility] [facility] [place] [place] [address], [facility] Hematocrit (Bld) [Volume fraction] 37.1 % Normal 36.0-45.[address] [facility] Comment on above: Performed By: #### 6 1405 #### [facility] [address] [facility] [place] [address], [facility] Hemoglobin (Bld) [Mass/Vol] 11.3 g/dL Low 12.0-15.[address] [facility] Comment on above: Performed By: #### 6 1405 #### [facility] [address] [place] [address], [facility] IMMATURE GRANS 0.1 % Normal 0.0-1.[address] [facility] Comment on above: Performed By: #### 6 1405 #### [facility] [address] Lymphocytes (Bld) [#/Vol] 2.5 10*3/uL Normal 1.2-4.[address] [facility] Comment on above: Performed By: #### 6 1405 #### [facility] [address] Lymphocytes/100 WBC (Bld) 31.6 % Normal 20.0-45.[address] [facility] Comment on above: Performed By: #### 6 1405 #### [facility] [address] [facility] [place] [address], [facility] MCH (RBC) [Entitic mass] 25.5 pg Low 27.0-33.[address] [facility] Comment on above: Performed By: #### 6 1405 #### [facility] [address] [facility] [address], [facility] MCHC (RBC) [Mass/Vol] 30.5 g/dL Low 32.0-35.[address] [facility] Comment on above: Performed By: #### 6 1405 #### [facility] [address] [facility] [place] [address], [facility] MCV (RBC) [Entitic vol] 83.7 fL Normal 82.0-98.[address] [facility] Comment on above: Performed By: #### 6 1405 #### [facility] [address] [facility] [place] [address], [facility] Monocytes (Bld) [#/Vol] 0.5 10*3/uL Normal 0.1-1.[address] [facility] Comment on above: Performed By: #### 6 1405 #### [facility] [address] MONOS 6.0 % Normal 5.0-12.[address] [facility] Comment on above: Performed By: #### 6 1405 #### [facility] [address] Neutrophils/100 WBC (Bld) 60.1 % Normal 40.0-72.[address] [facility] Comment on above: Performed By: #### 6 1405 #### [facility] [address] Nucleated RBC/100 WBC (Bld) [Ratio] 0 % Normal 0-[address] [facility] Comment on above: Performed By: #### 6 1405 #### [facility] [address] [facility] [place] [address], [facility] PLAT CNT 233 10*3/uL Normal 150-[address] [facility] Comment on above: Performed By: #### 6 1405 #### [facility] [address] [facility] [place] [address], [facility] RBC (Bld) [#/Vol] 4.43 10*6/uL Normal 3.80-5.[address] [facility] Comment on above: Performed By: #### 6 1405 #### [facility] [address] WBC (Bld) [#/Vol] 7.85 10*3/uL Normal 4.00-10.[address] [facility] Comment on above: Performed By: #### 6 1405 #### [facility] [address] [facility] [address] PROTHROMBIN TIMEon 1 INR Coag (PPP) [Relative time] 0.94 {INR} Normal 0.91-1.[address] [facility] Comment on above: Result Comment: [...] 1995;[id number]. Performed By: #### 3 1791 #### [facility] [address] [facility] [place] [address], [facility] PT Coag (PPP) [Time] 12.6 s Normal 12.3-14.[address] [facility] Comment on above: Result Comment: ALL RESULTS MUST BE INTERPRETED WITH RESPECT TO BLOOD DRAWING ARTIFACT OR DILUTION ERROR OF ANTICOAGULANT AT THE TIME OF SAMPLING. Performed By: #### 3 1797 #### [facility] [address] TYPE AND SCREENon 10-07-2021 ABO INTERPRETATION O Normal [facility] Comment on above: Performed By: #### 3 1791 #### [facility] [address] RH INTERPRETATION Positive Normal [facility] Comment on above: Performed By: #### 3 1791 #### [facility] [address] *MRSA/MSSA DNA NASALon 08-12 *MRSA/MSSA DNA NASAL Clinical Report: (D) Specimen: NASAL SWAB Collected: 08/12/2021 10:14 Status: Final Last Updated: 08/12/2021 18:58 MSSA DNA (Final) Negative MRSA DNA (Final) Negative Normal [facility] Comment on above: Performed By: #### 6 1405 #### [facility] [address] CBC W/DIFFon 08-12-2021 ABS IMM GRANS 0.0 10*3/uL Normal 0.0-0.[address] [facility] Comment on above: Performed By: #### 6 1405 #### [facility] [address] ABS NEUTROPHILS 3.7 10*3/uL Normal 1.6-7.[address] [facility] Comment on above: Performed By: #### 6 1405 #### [facility] [address] [place] [address], [facility] Basophils (Bld) [#/Vol] 0.0 10*3/uL Normal 0.0-0.[address] [facility] Comment on above: Performed By: #### 6 1405 #### [facility] [address] Basophils/100 WBC (Bld) 0.3 % Normal 0.0-1.[address] [facility] Comment on above: Performed By: #### 6 1405 #### [facility] [address] [facility] [place] [place] [address], [facility] Eosinophils (Bld) [#/Vol] 0.2 10*3/uL Normal 0.0-0.[address] [facility] Comment on above: Performed By: #### 6 1405 #### [facility] [address] [facility] [place] [address], [facility] Eosinophils/100 WBC (Bld) 2.9 % Normal 0.0-6.[address] [facility] Comment on above: Performed By: #### 6 1405 #### [facility] [address] Erythrocyte distribution width (RBC) [Ratio] 14.0 % Normal 11.5-15.[address] [facility] Comment on above: Performed By: #### 6 1405 #### [facility] [address] Hematocrit (Bld) [Volume fraction] 37.0 % Normal 36.0-45.[address] [facility] Comment on above: Performed By: #### 6 1405 #### [facility] [address] Hemoglobin (Bld) [Mass/Vol] 11.6 g/dL Low 12.0-15.[address] [facility] Comment on above: Performed By: #### 6 1405 #### [facility] [address] IMMATURE GRANS 0.3 % Normal 0.0-1.[address] [facility] Comment on above: Performed By: #### 6 1405 #### [facility] [address] [facility] [place] [address], [facility] Lymphocytes (Bld) [#/Vol] 2.1 10*3/uL Normal 1.2-4.[address] [facility] Comment on above: Performed By: #### 6 1405 #### [facility] [address] [place] [address], [facility] Lymphocytes/100 WBC (Bld) 32.5 % Normal 20.0-45.[address] [facility] Comment on above: Performed By: #### 6 1405 #### [facility] [address] [place] [address], [facility] MCH (RBC) [Entitic mass] 26.8 pg Low 27.0-33.[address] [facility] Comment on above: Performed By: #### 6 1405 #### [facility] [address] [facility] [place] [address], [facility] MCHC (RBC) [Mass/Vol] 31.4 g/dL Low 32.0-35.[address] [facility] Comment on above: Performed By: #### 6 1405 #### [facility] [address] [facility] [place] [address], [facility] MCV (RBC) [Entitic vol] 85.5 fL Normal 82.0-98.[address] [facility] Comment on above: Performed By: #### 6 1405 #### [facility] [address] [facility] [place] [address], [facility] Monocytes (Bld) [#/Vol] 0.5 10*3/uL Normal 0.1-1.[address] [facility] Comment on above: Performed By: #### 6 1405 #### [facility] [address] [facility] [place] [address], [facility] MONOS 6.9 % Normal 5.0-12.[address] [facility] Comment on above: Performed By: #### 6 1405 #### [facility] [address] [facility] [place] [address], [facility] Neutrophils/100 WBC (Bld) 57.1 % Normal 40.0-72.[address] [facility] Comment on above: Performed By: #### 6 1405 #### [facility] [address] [place] [address], [facility] Nucleated RBC/100 WBC (Bld) [Ratio] 0 % Normal 0-[address] [facility] Comment on above: Performed By: #### 6 1405 #### [facility] [address] [place] [address], [facility] PLAT CNT 223 10*3/uL Normal 150-[address] [facility] Comment on above: Performed By: #### 6 1405 #### [facility] [address] [facility] [place] [address], [facility] RBC (Bld) [#/Vol] 4.33 10*6/uL Normal 3.80-5.[address] [facility] Comment on above: Performed By: #### 6 1405 #### [facility] [address] [facility] [place] [address], [facility] WBC (Bld) [#/Vol] 6.55 10*3/uL Normal 4.00-10.[address] [facility] Comment on above: Performed By: #### 6 1405 #### [facility] [address] [facility] [place] [address], [facility] HEMOGLOBIN A1Con 08-12-2021 Glucose [Moles/Vol] 103 mmol/L Normal [facility] Comment on above: Performed By: #### 3 1791 #### [facility] [address] [facility] [place] [address], [facility] HbA1c (Bld) [Mass fraction] 5.2 % Normal 4.0-6.[address] [facility] Comment on above: Performed By: #### 3 1791 #### [facility] [address] [place] [address], [facility] KNEE LEFT 3 VWSon 08-12-[address] [facility] Department of Radiology [address] [place] [id number] Patient Name: ELVI MOORE : 1980 Sex: [...] report. Electronically signed: Jah Juarez. Transcribed by: [email or web address], User Resident: JODY KEITH Electronically Signed by: JAH JUAREZ @ 08/12/2021 03:46 PM I personally read this/these film(s) with this resident Normal [facility] Comment on above: Order Comment: [...] _Zhane Tamez MD 12/30/17 16:02 EDT Normal [facility] Otolaryngology Office/Clinic Noteon 11-18-2017 Otolaryngology Office/Clinic [...] _Zhane Tamez MD 11/18/17 16:31 EST Normal [facility] Otolaryngology Office/Clinic Note Patient seen for dispense of bilateral swim plugs. Both plugs display good fit in the ears, and patient confirmed comfort of fit. Proper insertion/removal was practiced successfully. Plan: Return if issues arise regarding swim plugs. N/C, swim plugs paid at last appointment.Electronicall y signed by _ZacharyRima Stroud 11/18/17 16:04 EST Normal [facility] Otolaryngology Office/Clinic Noteon 10-28-2017 Otolaryngology Office/Clinic Note Patient seen for bilateral earmold impressions for swim plugs. Earmold impressions made without incident and otoscopy prior to and following impressions was unremarkable. Patient chose purple, pink, and green swirl color for plugs. Plan: Return in 3 weeks for dispense, prior to follow-up appointment with Dr. Zhane Tamez. $70.Electronically signed by _Kyara Rima Roque 10/28/17 16:31 EST Normal [facility] Otolaryngology Office/Clinic Note Chief Complaint post-opHistory [...] _Zhane Tamez MD 10/28/17 15:41 EST Normal [facility] Otolaryngology Office/Clinic Noteon 09-16-2017 Otolaryngology Office/Clinic [...] _Zhane Tamez MD 09/16/17 16:06 EST Normal [facility] Otolaryngology Consultationo n 04-20-2017 Otolaryngology Consultation [...] _Zhane Tamez MD 04/20/17 16:51 EDT Normal [facility] Vital Signs Date Time Vital Sign Value Performing Clinician Facility 03-07-2024 16:03-0400 Blood Pressure Location ELIZABETH VACA [facility] 03-07-2024 16:03-0400 Body temperature 97.88 [degF] ELIZABETH VACA [facility] 03-07-2024 16:03-0400 Diastolic blood pressure 80 mm[Hg] ELIZABETH VACA [facility] 03-07-2024 16:03-0400 Heart rate 87 /min ELIZABETH VACA [facility] 03-07-2024 16:03-0400 Respiratory rate 16 /min ELIZABETH VACA [facility] 03-07-2024 16:03-0400 Systolic blood pressure 124 mm[Hg] ELIZABETH VACA [facility] 01-06-2024 18:12-0400 Body height 167.64 cm MD Arleth Acharya Work Phone: [facility] 01-06-2024 18:12-0400 Body mass index (BMI) [Ratio] 25.6 kg/m2 MD Arleth Acharya Work Phone: [facility] 01-06-2024 18:12-0400 Body temperature 98.2 [degF] MD Arleth Acharya Work Phone: [facility] 01-06-2024 18:12-0400 Body weight 72 kg MD Arleth Acharya Work Phone: [facility] 01-06-2024 18:12-0400 Heart rate 93 /min MD Arleth Acharya Work Phone: [facility] 01-06-2024 18:12-0400 Respiratory rate 16 /min MD Arleth Acharya Work Phone: [facility] 01-06-2024 18:12-0400 SaO2% (BldA) [Mass fraction] 99 % MD Arleth Acharya Work Phone: [facility] 09-13-2023 12:04-0500 Blood Pressure Location Diana HAWKINS [facility] 09-13-2023 12:04-0500 Diastolic blood pressure 74 mm[Hg] Diana HAWKINS [facility] 09-13-2023 12:04-0500 Heart rate 64 /min Diana HAWKINS [facility] 09-13-2023 12:04-0500 Respiratory rate 16 /min Diana HAWKINS [facility] 09-13-2023 12:04-0500 Systolic blood pressure 128 mm[Hg] Diana HAWKINS [facility] 05-28-2023 11:12-0400 Body temperature 98 [degF] MD Arleth Acharya Work Phone: [facility] 05-28-2023 11:12-0400 Body weight 70.76 kg MD Arleth Acharya Work Phone: [facility] 05-28-2023 11:12-0400 Diastolic blood pressure 94 mm[Hg] MD Arleth Acharya Work Phone: [facility] 05-28-2023 11:12-0400 Heart rate 88 /min MD Arleth Acharya Work Phone: [facility] 05-28-2023 11:12-0400 Respiratory rate 16 /min MD Arleth Acharya Work Phone: [facility] 05-28-2023 11:12-0400 SaO2% (BldA) [Mass fraction] 98 % MD Arleth Acharya Work Phone: [facility] 05-28-2023 11:12-0400 Systolic blood pressure 131 mm[Hg] MD Arleth Acharya Work Phone: [facility] 05-28-2023 11:00-0400 Body height 167.64 cm MD Arleth Acharya Work Phone: [facility] 06-29-2022 09:25-0400 Blood Pressure Location Diana HAWKINS [facility] 06-29-2022 09:25-0400 Diastolic blood pressure 84 mm[Hg] Diana HAWKINS [facility] 06-29-2022 09:25-0400 Heart rate 84 /min Diana HAWKINS [facility] 06-29-2022 09:25-0400 Respiratory rate 16 /min Diana HAWKINS [facility] 06-29-2022 09:25-0400 Systolic blood pressure 115 mm[Hg] Dianaatul HAWKINS [facility] Encounters Encounter Date Encounter Type Care Provider Facility Start: 08-09-2024 End: 08-09-2024 Emergency department patient visit ARLETH ACHARYA [facility] Start: 07-24-2024 End: 07-24-2024 ambulatory [facility] Start: 07-19-2024 ambulatory RUKHSANA MILLER [facility] Start: 07-17-2024 End: 07-17-2024 ambulatory DAISY Aggarwal [facility] Start: 07-14-2024 End: 07-14-2024 ambulatory KHRIS King [facility] Start: 06-01-2024 End: 06-01-2024 ambulatory KHRIS King [facility] Start: 05-01-2024 End: 05-03-2024 ambulatory [facility] Start: 03-22-2024 End: 03-22-2024 Departed Referred MD Arleth Acharya Work Phone: [facility] Start: 03-22-2024 End: 03-22-2024 ambulatory MD Arleth Acharya Work Phone: [facility] Work Phone: Start: 03-17-2024 ambulatory RUKHSANA MILLER [facility] Start: 03-07-2024 End: 03-08-2024 ambulatory ELIZABETH VACA Facility:[facility] Start: 03-07-2024 End: 03-07-2024 Patient encounter procedure ELIZABETH VACA [facility] Start: 03-06-2024 End: 03-07-2024 Emergency department patient visit [facility] Start: 03-06-2024 End: 03-07-2024 Emergency department patient visit ARLETH Phillips Rusty [facility] Start: 02-15-2024 End: 02-15-2024 ambulatory ARLETH Phillips [facility] Start: 02-08-2024 End: 02-08-2024 ambulatory DIANA HAWKINS [facility] Start: 02-07-2024 ambulatory Diana Bairdi ty:[facility] Start: 01-06-2024 End: 01-06-2024 ambulatory MD Arleth Acharya Work Phone: [facility] Work Phone: Start: 01-06-2024 End: 01-06-2024 Patient encounter procedure MD Arleth Acharya Work Phone: [facility] Work Phone: Start: 12-24-2023 ambulatory RUKHSANA ANGELA [facility] Start: 12-10-2023 End: 12-11-2023 Emergency department patient visit NETO CONNELL [facility] Start: 11-19-2023 End: 11-19-2023 ambulatory [facility] Start: 11-08-2023 End: 11-08-2023 ambulatory [facility] Start: 10-28-2023 ambulatory RUKHSANA MILLER [facility] Start: 10-19-2023 ambulatory Diana Bairdi ty:[facility] Start: 10-14-2023 End: 10-14-2023 Emergency department patient visit ARLETH Phillips [facility] Start: 10-13-2023 End: 10-15-2023 Emergency department patient visit [facility] Start: 10-13-2023 End: 10-15-2023 Emergency department patient visit [facility] Start: 10-12-2023 End: 10-13-2023 ambulatory Diana R HAWKINS Facility:[facility] Start: 10-12-2023 End: 10-12-2023 Patient encounter procedure Diana HAWKINS [facility] Start: 09-20-2023 ambulatory Diana HAWKINS Facility :[facility] [place] Start: 09-16-2023 ambulatory Dianaatul HAWKINS Facili ty:[id number] Start: 09-13-2023 End: 09-14-2023 ambulatory Dianaatul HAWKINS Facility:[facility] [place] Start: 09-13-2023 End: 09-13-2023 Patient encounter procedure Diana HAWKINS [facility] Start: 08-19-2023 ambulatory [facility] Start: 06-28-2023 ambulatory Osiris Bentonleianahun Facility:[facility] Start: 05-28-2023 End: 05-28-2023 ambulatory MD Arleth Acharya Work Phone: [facility] Work Phone: Start: 05-28-2023 End: 05-28-2023 Registered Recurring MD Arleth Acharya Work Phone: [facility] Work Phone: Start: 01-25-2023 End: 01-25-2023 ambulatory GENNA HEATON Facility: Start: 01-21-2023 End: 01-22-[address] ARLETH ACHARYA . Facility:[facility] Start: 01-04-2023 End: 01-04-2023 Patient encounter procedure Diana R HAWKINS [facility] Start: 10-10-[address] ARLETH ACHARYA . Facili ty:[facility] Start: 10-06-2022 End: 10-06-[address] ARLETH ACHARYA . Facility:[facility] Start: 09-30-2022 End: 10-01-[address] ARLETH ACHARYA . Facility:[facility] Start: 09-21-2022 End: 09-21-[address] ARLETH ACHARYA . Facility:[facility] Start: 08-27-2022 Encounter for preprocedural laboratory examination DR DIANA HAWKINS . [facility] Start: 08-27-2022 End: 08-27-[address] [...] encounter procedure Diana HAWKINS [facility] Start: 06-11-[address] Facility :[facility] Start: 06-09-2022 End: 06-11-[address] Facility:[facility] Start: 06-03-2022 End: 06-03-2022 Emergency department patient visit ARLETH ACHARYA Facility:[facility] Start: 06-01-2022 End: 08-22-2022 Evaluation and management of inpatient Kevin Lane Facility:[facility] Start: 05-26-2022 End: 05-27-[address] Facility:[facility] Start: 05-26-2022 End: 05-27-2022 Encounter for preprocedural laboratory examination Kevin Lane Facility:[facility] Start: 05-16-2022 ambulatory NICK YOO Facility: Start: 05-01-2022 End: 05-02-2022 ambulatory NICK YOO Facility: Start: 04-29-2022 End: 04-29-2022 ambulatory ENEDINA IVEY . Facility: Start: 04-16-2022 End: 04-17-[address] ARLETH ACHARYA . Facility: Start: 04-07-2022 End: 04-08-[address] Facility:[facility] Start: 03-24-2022 End: 03-25-2022 ambulatory REFERRED SELF Facility:[facility] Start: 02-12-2022 End: 02-13-[address] Facility:[facility] Start: 01-09-2022 End: 01-10-2022 ambulatory REFERRED SELF Facility:[facility] Start: 12-26-2021 End: 12-27-2021 ambulatory REFERRED SELF Facility:[facility] Start: 12-09-2021 End: 12-10-2021 ambulatory REFERRED SELF Facility:[facility] Start: 10-30-2021 End: 10-31-[address] Facility:[facility] Start: 10-11-2021 End: 11-11-[address] Facility:[facility] Start: 10-07-2021 End: 10-08-[address] Facility:[facility] Start: 10-06-2021 End: 10-11-[address] Facility:[facility] Start: 08-12-2021 End: 08-13-2021 ambulatory REFERRED SELF Facility:[facility] Start: 2017 End: 12-31-2017 Ambulatory ZHANE TAMEZ Facility:[facility] Start: 11-18-2017 End: 11-19-2017 Ambulatory ZHANE TAMEZ Facility:[facility] Start: 10-28-2017 End: 10-29-2017 Ambulatory Rima Sparrow Facility:[facility] Start: 10-14-2017 End: 10-15-2017 Ambulatory ZHANE TAMEZ Facility:[facility] Start: 09-16-2017 End: 09-17-2017 Ambulatory ZHANECLOVER TAMEZ Facility:[facility] Start: 06-24-2017 Ambulatory ZHANECLOVER TAMEZ Facility :[facility] Start: 04-20-2017 End: 04-21-2017 Ambulatory ZHANECLOVER TAMEZ Facility:[facility] Procedures Date Procedure Procedure Detail Performing Clinician [...] above: Performed By: #### 3 1791 #### [address] Appendectomy Diana HAWKINS Arthroplasty of knee Diana HAWKINS Arthroscopy of knee Diana HAWKINS Bypass of stomach Diana GOOD TERS Cholecystectomy Diana KIMBALLE RS Hysterectomy Diana HAWKINS Implantation of temp orary spinal cord stimulator Diana HAWKINS Tonsillectomy Diana HAWKINS Plan of Treatment Date Care Activity Detail Author Start: 05-28-2023 [facility] Iron binding capacit y [Mass/volume] in Serum or Plasma [facility] Iron saturation [Mas s Fraction] in Serum or Plasma [facility] Immunizations Immunization Date Immunization Notes Care Provider Wicho mckeon 07-29-2022 influenza virus vacc ine, unspecified formulation ELIZABETH VACA [facility] 07-29-2022 SARS-CoV-2 (COVID-19 ) [id number] ELIZABETH VACA [facility] 10-08-2021 SARS-CoV-2 (COVID-19 ) mRNA BNT-162b2 vax Diana Tyche [facility] 01-30-2021 SARS-CoV-2 (COVID-19 ) mRNA BNT-162b2 vax [employer] 01-09-2021 SARS-CoV-2 (COVID-19 ) mRNA BNT-162b2 vax [facility] 07-11-2020 influenza virus vacc ine, unspecified formulation [facility] 07-03-2020 influenza virus vacc ine, unspecified formulation Diana Tyche [facility] 07-18-2019 influenza virus vacc ine, unspecified formulation [facility] [facility] 07-08-2018 influenza virus vacc ine, unspecified formulation [facility]All [facility] 01-01-2016 pneumococcal polysaccharide vaccine, 23 valent Diana HAWKINS [facility] 09-17-2013 influenza virus vacc ine, unspecified formulation Diana HAWKINS [facility] 07-10-2011 tetanus toxoid, redu demar diphtheria toxoid, and acellular pertussis vaccine, adsorbed Diana HAWKINS [facility] Payers Date Payer Category Payer Unknown [id number] Self-pay 2017 Unknown 2012 Unknown [id number] 2012 Unknown [id number] 1981 Unknown [id number] 2.16.8 40.1.472700.3.579.2.647 1981 Unknown [id number] 2.16.8 40.1.799324.3.579.2.647 1981 Unknown [id number] 2.16.8 40.1.440804.3.579.2.647 1981 Unknown [id number] 2.16.8 40.1.261538.3.579.2.647 1981 Unknown [id number] 2.16.8 40.1.179416.3.579.2.647 1981 Unknown [id number] 2.16.8 40.1.070431.3.579.2.647 1981 Unknown [id number] 2.16.8 40.1.382180.3.579.2.647 1981 Unknown [id number] 2.16.8 40.1.691031.3.579.2.647 1981 Unknown [id number] 2.16.8 40.1.636675.3.579.2.647 1981 Unknown [id number] 2.16.8 40.1.865957.3.579.2.647 1981 Unknown [id number] 2.16.8 40.1.298704.3.579.2.647 1981 Unknown [id number] 2.16.8 40.1.407898.3.579.2.647 1981 Unknown [id number] 2.16.8 40.1.443805.3.579.2.647 1981 Unknown [id number] 2.16.8 40.1.215232.3.579.2.647 1981 Unknown [id number] 2.16.8 40.1.505882.3.579.2.647 1981 Unknown [id number] 2.16.8 40.1.990083.3.579.2.647 1981 Unknown [id number] 2.16.84 0.1.536417.3.579.2.593 1981 Unknown [id number] 2.16.84 0.1.629488.3.579.2.593 1981 Unknown [id number] 2.16.84 0.1.550723.3.579.2.593 1981 Unknown [id number] 2.16.84 0.1.112931.3.579.2.593 1981 Unknown [id number] 2.16.84 0.1.028680.3.579.2.593 1981 Unknown [id number] 2.16.84 0.1.675085.3.579.2.593 1981 Unknown [id number] 2.16.84 0.1.823356.3.579.2.593 1981 Unknown [id number] 2.16.84 0.1.264497.3.579.2.593 1981 Unknown [id number] 2.16.84 0.1.723484.3.579.2.593 1981 Unknown [id number] 2.16.84 0.1.327909.3.579.2.593 1981 Unknown [id number] 2.16.84 0.1.873847.3.579.2.593 1981 Unknown [id number] 2.16.84 0.1.253952.3.579.2.593 1981 Unknown [id number] 2.16.84 0.1.516071.3.579.2.593 1981 Unknown [id number] 2.16.84 0.1.919837.3.579.2.593 1981 Unknown [id number] 2.16.84 0.1.981228.3.579.2.593 1981 Unknown [id number] 2.16.84 0.1.559016.3.579.2.593 1981 Unknown [id number] 2.16.84 0.1.115473.3.579.2.593 1981 Unknown [id number] 2.16.84 0.1.857728.3.579.2.593 1981 Unknown [id number] 2.16.8 40.1.762396.3.579.2.727 1981 Unknown [id number] 2.16.8 40.1.274216.3.579.2.727 1981 Unknown [id number] 2.16.8 40.1.171170.3.579.2.727 1981 Unknown [id number] 2.16.8 40.1.544030.3.579.2.727 1981 Unknown [id number] 2.16.8 40.1.872948.3.579.2.727 1981 Unknown [id number] 2.16.8 40.1.877163.3.579.2.173 1981 Unknown [id number] 2.16. 840.1.099617.3.579.2.175 1981 Unknown [id number] 2.16.8 40.1.928497.3.579.2.1286 1981 Unknown [id number] 2.16.8 40.1.309835.3.579.2.1285 1981 Unknown [id number] 2.16.8 40.1.915738.3.579.2.1285 1981 Unknown [id number] 2.16.8 40.1.680175.3.579.2.1285 1981 Unknown [id number] 2.16.8 40.1.315863.3.579.2.1285 1981 Unknown [id number] 2.16.8 40.1.225908.3.579.2.1285 1981 Unknown [id number] 2.16.8 40.1.013529.3.579.2.1285 1981 Unknown [id number] 2.16.8 40.1.592761.3.579.2.1285 1981 Unknown [id number] 2.16.8 40.1.580897.3.579.2.1285 1981 Unknown [id number] 2.16.8 40.1.853953.3.579.2.1285 1981 Unknown [id number] 2.16.84 0.1.949158.3.579.2.1285 1981 Unknown [id number] 2.16.84 0.1.922939.3.579.2.1285 1981 Unknown [id number] 2.16.84 0.1.407189.3.579.2.1285 1981 Unknown [id number] 2.16.84 0.1.069256.3.579.2.[facility] Self-pay [id number] Unknown [id number] 2.16.8 40.1.251368.3.579.2.531 Unknown [id number] 2.16.8 40.1.616687.3.579.2.531 Unknown [id number] 2.16.8 40.1.813425.3.579.2.531 Social History Date Type Detail Facility Start: 06-29-2022 End: 05-28-2023 Tobacco smoking status Ex-smoker (finding) [facility] Sex Assigned At Female [facility] Start: 1980 Sex Assigned At Female F [facility] Tobacco smoking status Never [facility] Functional Status Date Assessment Result Facility 03-07-2024 Functional Status N/A [facility] 10-12-2023 Functional Status N/A [facility] 09-13-2023 Functional Status N/A [facility] 06-29-2022 Functional Status N/A [facility] Clinical Notes 06-16-2022 to 07-24-2024 Note Date & Type Note Facility 07-24-2024 Note Orthopedic Surgery Subjective New Patient and Follow-up of the Left Knee (History of Left knee revision that was performed on 06/01/22 , initial TKA in 10/[address] Lane . Here today with chronic anterior knee pain since surgery./ /) 07/24/24 Elvi Moore is a 43 y.o. female presenting for evaluation of chronic left knee pain. Patient complains of generalized knee pain in her left knee joint and denies any classical start up pain at this point in time. She has pain tingling numbness paresthesia sharp pain on occasions along with pulling sensation in the left knee joint at all times. She believes that she has nighttime pain as well denies any fever, chills or rigors or any redness on the knee joint. She has had a spinal cord stimulator which she believes helps her reduce the amount of pain. She has been on long-term pain medications which do not seem to help her long-term or long enough. Patient believes that she has never felt pain-free since her initial surgery by Dr. Lane in October 2021. Patient has a history of primary left TKA by Dr. Lane in October 2021. She states her initially was cementless, but she underwent revision left TKA on 06/01/2022, which she states was due to stiffness. Denies a history of prosthetic joint infection. She states she has had left knee pain since her knee was initially replaced. There is primarily over the anterior aspect of the knee. There is present at all times, even at rest, but tends to worsen with activity. She feels that is worsening over the last few months. She describes the pain as a stabbing and throbbing, she denies significant start up pain. She states the knee rarely gives out on her. She sees pain management and is currently taking [place] every 8 hours and Lyrica. She also has a spinal stimulator, which improves her left calf pain but does not touch her left knee pain. Reports occasional swelling that worsens throughout the day. She manages this with elevation and ice. Denies recent fever, chills, warmth, erythema, drainage from incision. Review of Systems positive for: Joint pain Swelling Patient History Past Surgical History: Procedure Laterality Date APPENDECTOMY BARIATRIC SURGERY CHOLECYSTECTOMY CYSTOSCOPY HYSTERECTOMY INNER EAR SURGERY JOINT REPLACEMENT 06/01/22 KNEE ARTHROPLASTY Left 06/01/2022 revision KNEE ARTHROPLASTY Left 10/30/2021 KNEE SURGERY arthroscopy ORTHOPEDIC SURGERY 06/01/2022 OTHER SURGICAL HISTORY 07/17/2024 Tumor SPINAL CORD STIMULATOR IMPLANT TUBAL LIGATION UMBILICAL HERNIA REPAIR 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 No acute distress, comfortable Respiratory: Unlabored breathing with normal rate, no cough Cardiovascular: Warm well perfused extremities Psych: Appropriate mood behavior Left Knee: Inspection: No obvious deformity. Well-healed incision over the anterior knee. Skin intact. No ecchymosis, edema, or effusion. Moderate wasting of the quadriceps noted. Tender to palpation over anterior knee/patellar tendon. There is slightly more tenderness laterally. She also has mild tenderness over the proximal tibia. Nontender over the distal femur. Knee ROM: Extension- 5??? Flexion- 85??? Strength: Knee Flexion 4/5, compared to 5/5 on the contralateral side Knee Extension 4/5, compared to 5/5 on the contralateral side Ankle Dorsiflexion 5/5 Ankle Plantarflexion 5/5 Sensation: Intact over superficial peroneal, deep peroneal and tibial nerve distributions Stability: 1+ valgus instability at 30 and 90 degrees of flexion Stable to varus stress throughout Stable to anterior and posterior thrust Gait: Mildly antalgic gait Imaging personally reviewed: X-rays from her immediate postop and follow-up x-rays were all seen by myself and interpreted independently. Considerable time was spent in closely monitoring these x-rays for these 2 to 3 years. These have been seen by myself and independently interpreted. X-rays of the left knee obtained 06/01/2024 demonstrate intact long stemmed left TKA components. There is positive halo sign noted on the proximal femoral component as well as the distal tibial component throughout the stem suggestive of pistoning of the components lucency around both the femoral and tibial stems with slight subsidence of the tibial component. There is some heterotopic ossification anteriorly near the insertion of the patellar tendon. No acute rupture or dislocation. This is suggestive of tibial as well as femoral loosening of the components. CT of the left knee obtained 07/14/2024 demonstrates suspected alignment of the longstem and left TKA with beltran (more content not included)... [facility] 07-19-2024 [place] [address] Subjective Patient ID: Elvi Moore is a 43 y.o. female. Date:07/19/24 07/19/24 CC: Chief Complaint Patient presents with Med Management Refill Hydrocodone-acetaminophen Pill count Med Refill Gabapentin Pain Assessment Pain Assessment: 0-10 Pain Score: 0 - No pain Pain Type: Chronic pain Pain Location: Knee Pain Orientation: Left Pain Descriptors: Aching, Throbbing, Numbness, Tingling Pain Frequency: Constant/continuous Pain Onset: Ongoing Clinical Progression: Gradually worsening Aggravating Factors: Walking, Standing, Stairs, Bending, Kneeling, Other (Comment) (Being on legs) Result of Injury: No Work-Related Injury: No Patient's Stated Pain Goal: No pain Pain Interventions: Medication (See MAR), Cold pack, Heat applied Response to Interventions: Hydrocodone-acetaminophen and Gabapentin gives about 50% releif last a few hours 43 year old female here follow up for chronic left leg pain. Her pain is a 0/10 and is worse with standing and it [...] the night due to her pain. She states her gabapentin she is not sure if it is helping or not. She also continues to take her tizanidine [...] retention loop lost. 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 She reports dealing with kidney stones and has an ER visit that she was given a short rx of norco so she could use QID temporarily. She disclosed this right away and was unsure what to do. 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 Past Surgical History: Procedure Laterality Date APPENDECTOMY BARIATRIC SURGERY CHOLECYSTECTOMY CYSTOSCOPY HYSTERECTOMY INNER EAR SURGERY JOINT REPLACEMENT 06/01/22 KNEE ARTHROPLASTY Left 06/01/2022 revision KNEE ARTHROPLASTY Left 10/30/2021 KNEE SURGERY arthroscopy ORTHOPEDIC SURGERY 06/01/2022 OTHER SURGICAL HISTORY 07/17/2024 Tumor SPINAL CORD STIMULATOR IMPLANT TUBAL LIGATION UMBILICAL HERNIA REPAIR Allergies Allergen Reactions Toradol [Ketorolac] Shortness of breath and Rash Compazine [Prochlorperazine] Hallucinations Meperidine Rash Other reaction(s): Unknown Objective BP (!) 131/95 Pulse 84 Ht 1.676 m (5' 6 ) Wt 70.3 kg (155 lb) BMI 25.02 kg/m??? General: well developed, well nourished, no acute distress Head: normocephalic and atraumatic Eyes: anicteric sclera, normal eye movements Ears: normal hearing Chest/Lungs: quiet, easy, unlabored breathing. Heart: no clubbing, cyanosis, edema Skin: intact without suspicious lesions or rashes Neuropsych: alert and cooperative; normal mood/affect articulates well Gait: normal Assessment/Plan Diagnosis Plan 1. Chronic, continuous use of opioids 2. Complex regional pain syndrome type 1 of left lower extremity 3. Other chronic postprocedural pain Discussed chronic pain, medication use, treatment goals. Medication risk and benefits discussed. The Spine Diagram and Test results were used to explain the condition. PLAN: 1. Continue [place] 5/325mg TID PRN for severe pain 8-10 - Change to lyrica 50mg BID from gabapentin 300mg BID, can increase lyrica dosing 2. MAPS/OARRS pulled and reviewed. -ORT/COT 07/2024 -ODS-07/2024 3. Lumbar xrays reviewed with patient and [...] and verbal health teaching given to patient, alicia (more content not included)... [facility] 06-01-2024 Note HPI 43 yo female with [...] scan Blood work Appointment with Dr Burkett [facility] 03-17-2024 Note [place] [address] Subjective Patient ID: Elvi Moore is a [...] retention loop lost. 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 Other chronic postprocedural pain HYDROcodone-acetaminophen ([place]) 5-325 mg tablet gabapentin (Neurontin) 300 mg capsule Discussed chronic pain, medication use, treatment goals. Medication risk and benefits discussed. The Spine Diagram and Test results were used to explain the condition. PLAN: 1. Continue [place] 5/325mg TID PRN for severe pain 8-10 [...] to compliance m (more content not included)... [facility] 03-07-2024 Note - From: Maggie Vargas To: EU - Administrative; Sent: 03/07/2024 16:37:39 EDT Show up: 09/10/2024 16:37:00 EST Subject: Ambulatory Reminder Due Date/Time: 02/27/2025 16:37:00 EDT Reminder/Recall Please schedule patient for 1 yr f/u with KUB with CHERI when schedule is built that far out. Due late February 2025 [facility] 03-07-2024 Hospital Discharge instructions Patient Education 03/07/2024 [...] include: ?8 oz (237 mL) of milk, waxgyoq-fkhhzboenazh-epoxg milk, and calcium-fortifiedfruit juice. Calcium-fortified means that [...] ?Spinach (cooked), rhubarb, beets, sweet potatoes, and Mauritian chard. ?Peanuts. ?Potato chips, turkish fries, and baked potatoes with skin on. ?Nuts and nut products. ?Chocolate. If you regularly take a diuretic medicine, make sure to eat at least 1 or 2 servings of fruits or vegetables that are high in potassium each day. These include: ?Avocado. ?Banana. ?[place], prune, carrot, or tomato juice. ?Baked potato. [...] magnesium, fish oil, or vitamin B6. Take pjnx-qgp-ezgueem and prescription medicines only as told by [...] Casseroles. Pizza. Lasagna. Frozen meals. Potato chips. Cameroonian fries. The items listed above may not [...] provider. Document Revised: 01/07/2023 Document Reviewed: 01/07/2023 [employer] Patient Education 2022 [employer]. Follow Up Care 01/26/2024 10:43:28 With:STEPH AVITIA ELIZABETH Kassidy, URL Address: [address] [address] [phone] When: Unknown [facility] Monique 12-24-2023 Note Pain Medicine Medical [address] [address] Subjective Patient ID: Elvi Moore is a [...] Interventions: Medication (See MAR) Response to Interventions: [place] - effective, SCS effective 42 year old female here follow up for chronic left leg pain. Her pain is a 7/10 and is worse with standing and it is in her left knee. She states she has been working with [employer] to make adjustments to get more coverage [...] retention loop lost. 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 Other chronic postprocedural pain HYDROcodone-acetaminophen ([place]) 5-325 mg tablet gabapentin (Neurontin) 300 mg capsule Discussed chronic pain, medication use, treatment goals. Medication risk and benefits discussed. The Spine Diagram and Test results were used to explain the condition. PLAN: 1. Continue [place] 5/325mg TID PRN for severe pain 8-10 [...] to compliance monit (more content not included)... [facility] 10-28-2023 [place] [address] Subjective Patient ID: Elvi Moore is a [...] before when she was working on the [employer] She states she has been working with [employer] to make adjustments to get more coverage [...] retention loop lost. 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 Other chronic postprocedural pain HYDROcodone-acetaminophen ([place]) 5-325 mg tablet Discussed chronic pain, medication use, treatment goals. Medication risk and benefits discussed. The Spine Diagram and Test results were used to explain the condition. PLAN: 1. Increase [place] 5/325mg TID PRN for severe pain 8-10 [...] another provider. Medication (more content not included)... [facility] 10-12-2023 Note [id number] [facility] 10-12-2023 Hospital Discharge instructions Patient Education [...] With:Diana HAWKINS Address: [facility] [address] [place] [address]- Business (1) When:01/11/2024 10:36:33 Comments:With a stone metabolic workup [facility] 10-12-2023 Note Custom Cystoscopy with [...] you have a fever over 100 degrees. [facility] 09-13-2023 Note Chief Complaint Re Referral [...] from Dr Acharya due to kidney stone. [facility] ER 08/11/23 K[facility] & CT 08/11/23 Dr Acharya prescribed Promethazine & Cipro 500mg BID [id number]. [facility] ER 09/08/23 CC: Lt Flank Pain [...] Acharya prescribed Promethazine and Cipro 500mg bid [id number]. Reports Dr. Acharya also started her on [...] for 1month (more content not included)... [facility] Comment on above: Result Comment: Elec [...] including vitamins, herbs, eye drops, creams, and vvti-bkp-fwanzog medicines. Any problems you or family members [...] provider tells you to take them. Taking vpiz-nco-kppeqri medicines, vitamins, herbs, and supplements. Tests You [...] Follow these instructions at home: Medicines Take rpdi-wbu-wvazstk and prescription medicines only as told by [...] provider. Document Revised: 06/10/2022 Document Reviewed: 05/09/2021 [employer] Patient Education 2022 [employer]. 09/13/2023 12:55:19 Hematuria, Adult Hematuria, Adult Hematuria [...] Follow these instructions at home: Medicines Take lyqc-kha-bzxpmus and prescription medicines only as told by [...] or the blood stops without treatment. Take hmyo-qdh-btmsegp and prescription medicines only as told by your health care provider. Drink enough fluid to keep your urine pale yellow. This information is not intended to replace advice given to you by your health care provider. Make sure you discuss any questions you have with your health care provider. Document Revised: 05/28/2021 Document Reviewed: 05/28/2021 [employer] Patient Education 2022 [employer]. Follow Up Care 08/20/2023 11:43:21 With:ROSS GENTILE, Diana Goss, URL Address: [facility] [address] [place] [address] [phone] When: Unknown Comments:sched cysto [facility] 09-13-2023 Note Urology Cystoscopy Cystoscopy is a [...] including vitamins, herbs, eye drops, creams, and rkos-ygy-ploiypn medicines. ? Any problems you or family [...] tells you to take them. ? Taking gvgg-bsb-kkllqkm medicines, vitamins, herbs, and supplements. Tests You [...] these instructions at home: Medicines ? Take ujpz-pzy-qmhdfzz and prescription medicines only as told by [...] department th (more content not included)... [facility] 08-19-2023 Note Pain Medicine Medical [address] [address] Subjective Patient ID: Elvi Moore is a [...] retention loop lost. 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 Do not start before August 20, 2023. - HYDROcodone-acetaminophen ([place]) 5-325 mg tablet; Take 1 tablet by mouth if needed in the morning and at bedtime for severe pain (8-10 pain score). Do not start before September 19, 2023. Other chronic postprocedural pain - HYDROcodone-acetaminophen ([place]) 5-325 mg tablet; Take 1 tablet by mouth if needed in the morning and at bedtime for severe pain (8-10 pain score). Do not start before August 20, 2023. - HYDROcodone-acetaminophen ([place]) 5-325 mg tablet; Take 1 tablet by [...] to explain the condition. PLAN: 1. Refill [place] 5/325mg BID PRN. Okay to fill on fill date 2. Patient instructed to contact us should she receive or prior to filling any additional opioid medications. 3. MAPS/OARRS pulled and reviewed. 4. Lumbar xrays reviewed with patient and reassured of proper lead placement and no migration issues. Continue optimization of neurostimulation 5. RTC in 6-8 weeks with COAT OPERATOR for med check All questions are [...] condition which requires (more content not included)... [facility] 01-04-2023 Hospital Discharge instructions Patient [...] include: ?Spinach. ?Rhubarb. ?Beets. ?Potato chips and turkish fries. ?Nuts. If you regularly take a diuretic medicine, make sure to eat at least 1 2 fruits or vegetables high in potassium each day. These include: ?Avocado. ?Banana. ?[place], prune, carrot, or tomato juice. ?Baked potato. [...] Casseroles. Pizza. Lasagna. Frozen meals. Potato chips. Cameroonian fries. Summary You can reduce your risk [...] 01/22/2012 Document Revised: 01/17/2020 Document Reviewed: 09/07/2017 [employer] Patient Education 2020 [employer]. Follow Up Care 10/29/2022 14:23:18 With:ROSS GENTILE, Diana Goss, URL Address: [facility] [address], [place] [address]- When: Unknown [facility] 06-29-2022 Evaluation + Plan note Diagnostic Tests PendingUroVysion Fish and Urine Cyto ([facility]) 06/29/22 [facility] 06-29-2022 Hospital Discharge instructions Patient [...] Follow these instructions at home: Medicines Take oomj-ows-ysxidan and prescription medicines only as told by [...] or the blood stops without treatment. Take mtky-fch-wtouztd and prescription medicines only as told by your health care provider. Drink enough fluid to keep your urine clear or pale yellow. This information is not intended to replace advice given to you by your health care provider. Make sure you discuss any questions you have with your health care provider. Document Released: 09/27/2006 Document Revised: 02/21/2020 Document Reviewed: 10/30/2017 [employer] Patient Education 2019 [employer]. Follow Up Care 05/06/2022 15:50:29 With:ROSS GENTILE, Diana Goss, URL Address: [facility] [address] , [place] [address]- [phone] When: Unknown [facility] 06-16-2022 Note MR#: [id number] [facility] Pt. Name: Elvi Moore Admitted: [...] Cavazos MD Date Trans: 06/16/2022 02:27 P/taylor DN_[id number] cc: Arleth Acharya M.D. [address] [address] [facility] Evaluation + Plan note Future Appointments Appointment Date:01/11/2023 01:45:00 PM Scheduled Provider:Diana HAWKINS MD Location:[facility] Appointment Type:URO Office Visit [facility] [facility] Evaluation + Plan note Future Appointments Appointment Date:02/07/2024 10:15:00 AM Scheduled Provider:Diana HAWKINS MD Location:[facility] Appointment Type:URO Office Visit [facility] Evaluation note No assessment inform ation available [facility] Work Phone: Evaluation note Diagnosis Onset Date Left ankle sprain noneactive [facility] Work Phone: Hospital course Narrative No data available for this section [facility] progress note No data available for this section [facility] Summary Purpose Family History No Family History Records Found Relationship Condition Age at Onset Recorded Date/T norman sister Malignant neoplasm of breast Unknown Not Specified Neoplasm of brain Unknown Relationship Condition Age at Onset Recorded Date/T norman sister Malignant neoplasm of breast Unknown mother Neoplasm of brain Unknown Advance Directives No [...] section and content) DATE CREATED AUTHOR 03/31/2018 [facility] DATE CREATED AUTHOR AUTHOR'S ORGANIZ ATION 06/23/2022 [facility] DATE CREATED AUTHOR AUTHOR'S ORGANIZ ATION 01/28/2023 [facility] DATE CREATED AUTHOR AUTHOR'S ORGANIZ ATION 03/09/2024 [facility] DATE CREATED AUTHOR AUTHOR'S ORGANIZ ATION 03/31/2024 [facility] DATE CREATED AUTHOR AUTHOR'S ORGANIZ ATION 05/04/2024 [facility] DATE CREATED AUTHOR AUTHOR'S ORGANIZ ATION 07/19/2024 [facility] DATE CREATED AUTHOR AUTHOR'S ORGANIZ ATION 08/10/2024 [facility] DATE CREATED AUTHOR AUTHOR'S ORGANIZ ATION 08/13/2024 [facility] Care Team (unrecognized sect ion and content) [...] BE BASED ON THE PRIMARY CLINICAL RECORDS. [facility]. provides no warranty or guarantee of the accuracy or completeness of information in this document.
--- NOTE | 2024-09-28 01:11 | CT_ITS ---
The [address] [address] Patient Name: KRISTINE MADDEN MRN: [id number] date: 1980 Sex: F Assigned Patient Location: ER Current Patient Location: ER Accession/Order Number: [id number] Exam Date: 09/28/2024 01:33 Report Date: 09/28/2024 02:26 At the request of: GENAN HEATON Procedure: CT abdomen pelvis w con EXAM: CT abdomen pelvis w con HISTORY: LLQ pain COMPARISON: CT abdomen and pelvis examination dated 08/31/2024. TECHNIQUE: Axial CT images through the abdomen and pelvis were obtained after the intravenous administration of contrast. Coronal and sagittal reformats were obtained. Dose reduction techniques were achieved by using automated exposure control and/or adjustment of mA and/or kV according to patient size and/or use of iterative reconstruction technique. FINDINGS: There is a new focal groundglass opacity in the right lower lobe. Abdomen: The liver and spleen enhance homogeneously without focal lesion. There is no intra or extrahepatic biliary duct dilatation. The gallbladder is surgically absent. There are postsurgical changes of a gastric bypass. Otherwise, the pancreas, adrenal glands, kidneys, and bowel loops are unremarkable. There is no mesenteric or retroperitoneal lymphadenopathy. The patient is status post an appendectomy. A right flank neurostimulator device is in place. This causes streak artifact which renders evaluation of adjacent structures suboptimal. Pelvis: The bladder and rectum are unremarkable. There is no iliac or inguinal lymphadenopathy. The patient is status post a hysterectomy. Bone windows show no aggressive osseous lesions. CT/CT abdomen pelvis w con IMPRESSION: 1. No specific etiology identified to explain the patient's abdominal pain. 2. New focal groundglass opacity in the right lower lobe, concerning for developing infection. 3. Status post cholecystectomy, gastric bypass, appendectomy, and hysterectomy. Electronically authenticated by: Fatuma PIKE Date: 09/28/2024 02:26
--- NOTE | 2024-09-28 01:12 | ED.GENADUL1 ---
HPI HPI - General Adult General Chief complaint: Urogenital-Female Stated complaint: ABDOMINAL PAIN, LEFT FLANK PAIN, VOMITING Time Seen by Provider: 09/28/24 00:59 Source: patient Mode of arrival: walk-in Limitations: no limitations History of Present Illness HPI narrative: 43-year-old female presents for abdominal pain. It is in her left lower quadrant and she is worried about diverticulitis or colitis. She has had this for months and saw her doctor twice within the last week. She has had no trauma or fever and states she is not constipated. No dysuria or hematuria and she does not complain to me of back pain. She states the pain is severe. Related Data Home Medications ?Medication ?Instructions ?Recorded ?Confirmed cyanocobalamin (vitamin B-12) 1,000 mcg IM .monthly 08/11/23 08/16/24 1,000 mcg/mL injection solution hydrocodone 5 mg-acetaminophen 325 1 tab PO Q8H PRN pain 08/11/23 08/16/24 mg tablet tizanidine 4 mg tablet 8 mg PO BEDTIME 08/11/23 08/16/24 pantoprazole 40 mg tablet,delayed 40 mg PO BID 09/13/23 07/06/24 release calcium carbonate 1,200 mg PO DAILY 03/17/24 08/16/24 multivitamin 1 tab PO DAILY 03/17/24 08/16/24 amitriptyline 100 mg tablet 100 mg PO .QHS 03/22/24 08/16/24 metronidazole 500 mg tablet 500 mg PO TID 08/16/24 08/16/24 pregabalin 50 mg capsule 50 mg PO BID 08/16/24 08/16/24 promethazine 25 mg tablet 25 mg PO Q12H PRN nausea and 08/16/24 08/16/24 vomiting Previous Rx's ?Medication ?Instructions ?Recorded cefdinir 300 mg capsule 600 mg (2 x 300 mg) PO DAILY #20 08/17/24 caps Allergies Allergy/AdvReac Type Severity Reaction Status Date / Time ketorolac (From Toradol) Allergy Intermediate Rash Verified 09/28/24 00:58 meperidine (From Demerol) Allergy Intermediate Rash Verified 09/28/24 00:58 prochlorperazine (From Allergy Intermediate hallucinati Verified 09/28/24 00:58 Compazine) ons Opioid HPI Opioid Management Most Recent Opioid Data: Last Pain Scale 10 08/31/24 17:03 08/31/24 Last ORT Total Score 2 08/16/24 13:12 08/16/24 Last ORT Risk Category Low Risk 08/16/24 13:12 08/16/24 Ur Phencyclidine Scrn Negative (NEGATIVE) 07/06/24 10:06 07/06/24 Review of Systems ROS Narrative A ten point review of systems is negative except as noted above. [facility] Medical History (Updated 09/28/24 @ 02:33 by Durga Aguiar MD) Acute dehydration ?E86.0 - Dehydration (ICD-10) UTI (urinary tract infection) ?N39.0 - Urinary tract infection, site not specified (ICD-10) Hematuria ?R31.9 - Hematuria, unspecified (ICD-10) Abdominal pain ?R10.9 - Unspecified abdominal pain (ICD-10) 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 (ICD-10) Colitis ?K52.9 - Noninfective gastroenteritis and colitis, unspecified (ICD-10) Flank pain ?R10.9 - Unspecified abdominal pain (ICD-10) Uncontrolled hypertension ?I10 - Essential (primary) hypertension (ICD-10) Nausea & vomiting ?R11.2 - Nausea with vomiting, unspecified (ICD-10) Right flank pain ?R10.9 - Unspecified abdominal pain (ICD-10) Nausea & vomiting ?R11.2 - Nausea with vomiting, unspecified (ICD-10) Mass of right parotid gland ?K11.8 - Other diseases of salivary glands (ICD-10) Migraines ?G43.909 - Migraine, unspecified, not intractable, without status migrainosus (ICD-10) Anxiety ?F41.9 - Anxiety disorder, unspecified (ICD-10) Depression ?F32.A - Depression, unspecified (ICD-10) Stomach ulcer ?K25.9 - Gastric ulcer, unspecified as acute or chronic, without hemorrhage or perforation (ICD-10) Pancreatitis ?K85.90 - Acute pancreatitis without necrosis or infection, unspecified (ICD-10) Kidney stone ?N20.0 - Calculus of kidney (ICD-10) Surgical History (Updated 03/22/24 @ 10:21 by Gin Machado) History of fine needle aspiration with imaging guidance ?Z98.890 - Other specified postprocedural states (ICD-10) Hx laparoscopic cholecystectomy ?Z90.49 - Acquired absence of other specified parts of digestive tract (ICD-10) History of lumpectomy of right breast ?Z98.890 - Other specified postprocedural states (ICD-10) History of placement of ear tubes ?Z96.22 - Myringotomy tube(s) status (ICD-10) S/P insertion of spinal cord stimulator ?Z96.89 - Presence of other specified functional implants (ICD-10) History of knee replacement procedure of left knee ?Z96.652 - Presence of left artificial knee joint (ICD-10) Gastric bypass status for obesity ?Z98.84 - Bariatric surgery status (ICD-10) H/O: hysterectomy ?Z90.710 - Acquired absence of both cervix and uterus (ICD-10) Hx of appendectomy ?Z90.49 - Acquired absence of other specified parts of digestive tract (ICD-10) Family History (Updated 08/11/23 @ 10:31 by Josie Pantoja) Grandfather Family history of COPD (chronic obstructive pulmonary disease) Father Family history of cancer Family history of diabetes mellitus Family history of hypertension Family history of stroke Sister Family history of cancer Family history of diabetes mellitus Grandmother Family history of diabetes mellitus Family history of hypertension Social History Within the past year, how often did you have a drink containing alcohol: never Within the past year, how many standard drinks containing alcohol did you have on a typical day: 1 or 2 Within the past year, how often did you have six or more drinks on one occasion: never Total score: 0 Score interpretation: A score less than 3 is consistent with normal alcohol consumption. Smoking status: Former smoker Second hand tobacco smoke exposure: No Non-prescribed substance use: denies use Previous occupational history: [employer] Known occupational exposures/hazards: No Highest level of school completed/degree received: some college, no degree Are you now , , , , never or living with a partner: In a typical week, how many times do you talk on the telephone with family, friends, or neighbors: 3 or more times per week How often do you get together with friends or relatives: 3 or more times per week How often do you attend sabianist or confucianist services: 4 or more times per year Do you belong to any clubs or organizations such as sabianist groups unions, fraternal or athletic groups, or school groups: no Total score: 3 Score interpretation: A score of greater than or equal to 2 indicates the lowest level of social isolation. Little interest or pleasure in doing things: not at all Feeling down, depressed, or hopeless: not at all Feel stressed/tense/nervous/anxious/difficulty sleeping: not at all Do you think of yourself as: straight/heterosexual Gender Identity: female Exam Narrative Exam Narrative: Nurses note and vital signs reviewed and patient is not hypoxic. General: The patient is rocking on the bed and is tearful when I walk into the room. Skin: Warm, dry, no pallor noted. There is no rash noted. Head: Normocephalic, atraumatic Eye: Normal conjunctiva, no drainage Ears, Nose, Mouth, and Throat: oral mucosa is moist. Nares patent. Cardiovascular: Regular Rate and Rhythm Respiratory: Patient is in no distress, no accessory muscle use, lungs are clear to auscultation, no wheezing, rales or rhonchi Back: non-tender, no CVA tenderness bilaterally to percussion. GI: No distention or mass. She does not seem to have any palpable tenderness. Musculoskeletal: The patient has no evidence of calf tenderness, no pitting edema, symmetrical pulses noted bilaterally Neurological: A&O, normal speech Psychiatric: Cooperative Constitutional Vital Signs, click to edit/add: Last Vital Signs Temp 98.1 F 09/28/24 00:53 Pulse 103 H 09/28/24 00:53 Resp 16 09/28/24 01:44 BP 147/90 H 09/28/24 01:44 Pulse Ox 99 09/28/24 01:44 O2 Del Method Room Air 09/28/24 01:44 Course Vital Signs Vital signs: Vital Signs Temperature 98.1 F 09/28/24 00:53 Pulse Rate 103 H 09/28/24 00:53 Respiratory Rate 20 09/28/24 00:53 Blood Pressure 166/120 H 09/28/24 00:53 Pulse Oximetry 100 09/28/24 00:53 Oxygen Delivery Method Room Air 09/28/24 00:53 Temperature 98.1 F 09/28/24 00:53 Pulse Rate 103 H 09/28/24 00:53 Respiratory Rate 16 09/28/24 01:44 Blood Pressure 147/90 H 09/28/24 01:44 Pulse Oximetry 99 09/28/24 01:44 Oxygen Delivery Method Room Air 09/28/24 01:44 Medical Decision Making MDM Narrative Medical decision making narrative: The patient's workup is again negative. CAT scan shows no acute findings. Urine shows chronic hematuria which is a known issue for her. Urine culture pending. The patient's workup is negative and she is able to be discharged home and will follow-up with her PCP as an outpatient. Treatment diagnosis and follow-up were discussed with the patient. The patient has no respiratory symptoms and I have no suspicion of an infection of the respiratory tract. Differential Diagnosis Differential Diagnosis: Chronic abdominal pain, constipation, colitis, diverticulitis Lab Data Lab results reviewed: Yes I reviewed the patient's lab results Labs: Lab Results 09/28/24 09/28/24 Range/Units 01:00 01:07 WBC 6.9 (4.0-11.0) 10^3/uL RBC 4.53 (4.20-5.40) 10^6/uL Hgb 11.9 L (12.0-16.0) g/dL Hct 38.3 (36.0-48.0) % MCV 84.5 (81.0-99.0) fL MCH 26.3 L (26.7-34.0) pg MCHC 31.1 (29.9-35.2) g/dL RDW 13.7 (11.0-15.0) % Plt Count 347 (150-450) 10^3/uL MPV 9.2 L (9.5-13.5) fL Neut % (Auto) 50.8 (43.0-75.0) % Lymph % (Auto) 41.9 (20.5-60.0) % [place] % (Auto) 5.6 (1.7-12.0) % Eos % (Auto) 1.0 (0.9-7.0) % Baso % (Auto) 0.3 (0.2-2.0) % Neut # (Auto) 3.5 (1.4-6.5) 10^3/uL Lymph # (Auto) 2.9 (1.2-3.8) 10^3/uL [place] # (Auto) 0.4 (0.3-0.8) 10^3/uL Eos # (Auto) 0.1 (0.0-0.7) 10^3/uL Baso # (Auto) 0.0 (0.0-0.1) 10^3/uL Abs Immat Gran (auto) 0.03 (0.00-0.03) 10^3/uL Imm/Tot Granulo (auto) 0.4 (0.0-0.5) % Sodium 141 (136-145) mmol/L Potassium 4.0 (3.5-5.1) mmol/L Chloride 106 (98-107) mmol/L Carbon Dioxide 29.4 (21.0-32.0) mmol/L Anion Gap 9.6 BUN 10.0 (7.0-18.0) mg/dL Creatinine 0.77 (0.55-1.02) mg/dL Est GFR ( Amer) >60 (>=60 mL/min/1.73m^2) Est GFR (Non-Af Amer) >60 (>=60 mL/min/1.73m^2) BUN/Creatinine Ratio 13.0 Glucose 95 (74-106) mg/dL Calcium 8.8 (8.5-10.1) mg/dL Urine Color Yellow (YELLOW) Urine Clarity Clear (CLEAR) Urine pH 7.5 (5.0-9.0) Ur Specific [place] 1.020 (1.005-1.025) Urine Protein Trace (NEG/TRACE) mg/dL Urine Glucose (UA) Negative (NEGATIVE) mg/dL Urine Ketones Trace A (NEGATIVE) mg/dL Urine Occult Blood Moderate A (NEGATIVE) Urine Nitrite Negative (NEGATIVE) Urine Bilirubin Negative (NEGATIVE) Urine Urobilinogen 1.0 (0.2-1.0) EU/dL Ur Leukocyte Esterase Trace A (NEGATIVE) Urine RBC 10-20 A (0-2) #/HPF Urine WBC 5-10 A (NONE SEEN) #/HPF Ur Squamous Epith Cells Few A (NONE/RARE) #/LPF Urine Crystals Seen A (None Seen) #/HPF Amorphous Sediment Few Urine Bacteria Small A (NONE SEEN) #/HPF Urine Casts None seen (NONE SEEN) #/LPF Urine Mucus Trace A (NONE SEEN) Ur Culture Indicated? Yes Urine HCG, Qual Negative (NEGATIVE) Imaging Data CT scan - abdomen: Radiologist's impression: ITS Impressions Abdomen/Pelvis CT 09/28/24 01:11 IMPRESSION: 1. No specific etiology identified to explain the patient's abdominal pain. 2. New focal groundglass opacity in the right lower lobe, concerning for developing infection. 3. Status post cholecystectomy, gastric bypass, appendectomy, and hysterectomy. Electronically authenticated by: Fatuma PIKE Date: 09/28/2024 02:26 Discharge Plan Discharge Chief Complaint: Urogenital-Female Clinical Impression: Chronic abdominal pain Patient Disposition: Home, Self-Care Time of Disposition Decision: 02:33 Condition: Good Mode of Transportation: Private Vehicle Prescriptions / Home Meds: No Action cyanocobalamin (vitamin B-12) 1,000 mcg/mL solution 1,000 mcg IM .monthly tizanidine 4 mg tablet 8 mg PO BEDTIME hydrocodone-acetaminophen 5-325 mg tablet 1 tab PO Q8H PRN (Reason: pain) pantoprazole 40 mg tablet,delayed release (DR/EC) 40 mg PO BID amitriptyline 100 mg tablet 100 mg PO .QHS pregabalin 50 mg capsule 50 mg PO BID promethazine 25 mg tablet 25 mg PO Q12H PRN (Reason: nausea and vomiting) metronidazole 500 mg tablet 500 mg PO TID Rx Instructions: 08/09/24-08/18/24 cefdinir 300 mg capsule 600 mg PO DAILY Qty: 20 0RF multivitamin Tablet 1 tab PO DAILY calcium carbonate 600 mg calcium (1,500 mg) tablet 1,200 mg PO DAILY Print Language: Danish Instructions: Chronic Abdominal Pain (DC) Referrals: Yasir Ledesma MD [Primary Care Provider] - 1 week
[2024-09-28 01:16] LABS: Bilirubin Urine NEGATIVE (NEGATIVE); Blood Urine MODERATE (NEGATIVE); Clarity Urine CLEAR (CLEAR); Color Urine YELLOW (YELLOW); Glucose Urine UA NEGATIVE (NEGATIVE); Ketones Urine TRACE mg/dL (NEGATIVE); Leukocyte Esterase Urine TRACE (NEGATIVE); Nitrite Urine NEGATIVE (NEGATIVE); Protein Urine TRACE mg/dL (NEG/TRACE); pH Urine 7.5 (5.0-9.0)
[2024-09-28 01:18] LABS: Basophils Percent Auto 0.3 % (0.2-2.0); Eosinophils Absolute Auto 0.1 10^3/uL (0.0-0.7); Hematocrit 38.3 % (36.0-48.0); Hemoglobin 11.9 g/dL (12.0-16.0); Immature Granulocytes Abs Auto 0.03 10^3/uL (0.00-0.03); Immature Granulocytes Pct Auto 0.4 % (0.0-0.5); Lymphocytes Absolute Auto 2.9 10^3/uL (1.2-3.8); Lymphocytes Percent Auto 41.9 % (20.5-60.0); Mean Corpuscular HGB Conc 31.1 g/dL (29.9-35.2); Mean Corpuscular Hemoglobin 26.3 pg (26.7-34.0); Mean Corpuscular Volume 84.5 fL (81.0-99.0); Mean Platelet Volume 9.2 fL (9.5-13.5); Monocytes Absolute Auto 0.4 10^3/uL (0.3-0.8); Monocytes Percent Auto 5.6 % (1.7-12.0); Neutrophils Absolute Auto 3.5 10^3/uL (1.4-6.5); Neutrophils Percent Auto 50.8 % (43.0-75.0); Platelet Count 347 10^3/uL (150-450); Red Blood Count 4.53 10^6/uL (4.20-5.40); Red Cell Distribution Width 13.7 % (11.0-15.0); White Blood Count 6.9 10^3/uL (4.0-11.0)
[2024-09-28 01:23] LABS: Anion Gap 9.6; Calcium 8.8 mg/dL (8.5-10.1); Carbon Dioxide 29.4 mmol/L (21.0-32.0); Chloride 106 mmol/L (98-107); Estimated GFR (African America >60 (>=60 mL/min/1.73m^2); Estimated GFR (Non-African Ame >60 (>=60 mL/min/1.73m^2); Glucose 95 mg/dL (74-106); Sodium 141 mmol/L (136-145)
[2024-09-28 01:25] LABS: HCG Qualitative Urine* NEGATIVE (NEGATIVE); Internal Control Within Normal Limits
[2024-09-28 01:31] LABS: Mucus Urine TRACE (NONE SEEN); Squamous Epithelial Cell Urine FEW #/LPF (NONE/RARE)
[2024-09-28 01:32] LABS: Amorphous Sediment Urine FEW; Cast Seen? NONE SEEN #/LPF (NONE SEEN); Crystals Seen? Seen #/HPF (None Seen); Urine Culture Indicated YES
[2024-09-28 01:33] LABS: Bacteria Urine SMALL #/HPF (NONE SEEN)
[2024-09-28 01:44] VITALS: BP 147/90; O2SAT 99
[2024-09-28] MEDS: ONDANSETRON PF 4 MG/2 ML VIAL IV (02:26)
[2024-09-28 02:44] VITALS: BP 160/94; PULSE 82; O2SAT 96
== END 2024-09-28 02:47 | disposition home or self-care (01) ==
PROVIDERS: Emergency Provider Emergency Medicine; PCP Family Medicine
DX: R10.32 Left lower quadrant pain (principal); G89.29 Other chronic pain; Z90.710 Acquired absence of both cervix and uterus; Z90.49 Acquired absence of other specified parts of digestive tract; Z98.84 Bariatric surgery status; Z96.89 Presence of other specified functional implants; Z96.652 Presence of left artificial knee joint; Z87.891 Personal history of nicotine dependence; R31.9 Hematuria, unspecified
CPT/HCPCS: 36415; 74177; 80048; 81001; 84703; 85025; 87086; 96374; 99285; J2405; Q9967

== ENCOUNTER 2024-12-07 10:26 | Outpatient (OUT) | payer OTHER, SELFPAY ==
--- OUTSIDE RECORDS SUMMARY | 2024-12-07 10:40 | XMS_ITS | CCD ---
Author Organization [facility] Care Team Providers Care Cotton Weigher Name Role Phone DASHAWN ZHANE W Unavailable Unavailable Hoy, Arleth Martinez [...] Admitting Unavailable HOY, ARLETH Primary Care Unavailable Pepe Laneel Referring Unavailable Kevin Lane Attending Unavailable Kevin Lane Admitting Unavailable HOY, ARLETH Primary Care Unavailable Kevin Lane Attending Unavailable Kevin Lane Admitting Unavailable HOY, ARLETH Primary Care Unavailable HOY, ARLETH Referring Unavailable Kevin Lane Admitting Unavailable GeKevin de santiago Attending Unavailable HOY, ARLETH Primary Care Unavailable HOY, ARLETH Referring Unavailable HOY, ARLETH Primary Care Unavailable STEENHOFFROBERTARIADNE Admitting Unavailable STEENHOFF ARIADNE Attending Unavailable SELF, REFERRED Referring Unavailable Kevin Lane Attending Unavailable Kevin Lane Admitting Unavailable NASIR THACKER Referring Unavailable HOY, ARLETH Primary Care Unavailable Gehling, Kevin Attending Unavailable Madaying, Kevin Admitting Unavailable HOY ARLETH Primary Care Unavailable HOY ARLETH Referring Unavailable Madaying, Kevin Referring Unavailable MadayingKevin Attending Unavailable Geocing, Kevin Admitting Unavailable SELF, REFERRED Primary Care Unavailable GeocingPepeel Referring Unavailable MadayingKevin Attending Unavailable Gehling, Kevin [...] Primary Care Unavailable Geocing, Kevin Admitting Unavailable MadayingPeepel Attending Unavailable HOY, ARLETH Primary Care Unavailable HOY, ARLETH Referring Unavailable MadayingKevin Attending Unavailable Gehling, Kevin Admitting Unavailable SELF, REFERRED Primary Care Unavailable SELF, REFERRED Referring Unavailable SELF, REFERRED Primary Care Unavailable FORSHEY, JORDEN D Admitting Unavailable FORSHEY, JORDEN D Attending Unavailable SELF, REFERRED Referring Unavailable SELF, REFERRED Primary Care Unavailable Kevin Lane Attending Unavailable Madaying, Kevin Admitting Unavailable SELF, REFERRED Referring Unavailable Arleth Acharya Primary Care Physician [phone] ROS[address] ., DR ORTIZ Consulting Unavailable FREDO NICK Primary Care Unavailable HAWKINS ., DR [...] Unavailable PAY ., DR STILL Attending Unavailable ZIEMEKAER, DR RUSSELL Goss Consulting Unavailable PAY ., [...] Unavailable HOY ., DR REINOSO Admalphonse Unavailable FREDO, NICK Primary Care Unavailable HOY [...] REINOSO Admitting Unavailable HAWKINS ., DR ORTIZ Admalphonse Unavailable [...] Primary Care Unavailable GENNA HEATON Consulting Unavailable VEDA BOND Consulting Unavailable HOY ., DR REINOSO Primary Care Unavailable HOY ., DR REINOSO Admalphonse Unavailable HOY ., DR REINSOO Attending Unavailable HAWKINS ., DR ORTIZ Consulting Unavailable FREDO, NICK Primary Care Unavailable HAWKINS ., DR ORTIZ Admitting Unavailable HAWKINS ., DR ORTIZ Attending Unavailable JORDEN ECHOLS Consulting Unavailable MARAH CHATMAN Consulting Unavailable MD Arleth Acharya Primary Care Provider [phone] MD Arleth Acharya Referring Provider DO Calderón Attending Provider MD Arleth Acharya Primary Care Provider [phone] DO Antonio Attending Provider [phone] MD Carissa Pettit V Attending Provider Carissa Pettit V Attending Unavailable Carissa Pettit V Admitting Unavailable Rianna Antonio Attending Unavailable AntonioRianna moss Admitting Unavailable Hoy, Arleth M Primary Care Unavailable Osiris Calderón Attending Unavail able Osiris Calderón Admitting Unavail able Hoy, Arleth M Referring Unavailable Hoy, Arleth M Primary Care Unavailable BILL BROWN Referring Unavailable HOY, ARLETH M Primary Care Unavailable BILL BROWN Attending Unavailable BILL BROWN Admitting Unavailable HOY, ARLETH M Primary [...] Unavailable HOY, ARLETH M Primary Care Unavailable LATONYA, BRYAN Attending Unavailable HOY, ARLETH M Primary Care Unavailable CARISSA RG Attending Unavailable HOY, ARLETH M Primary Care Unavailable ADRI FRANK Attending Unavailable CARISSA RG Attending Unavailable CARISSA RG Referring Unavailable HOY, ARLETH M Primary Care Unavailable CARISSA RG Attending Unavailable CARISSA RG Referring Unavailable HOY, ARLETH M Primary Care Unavailable ASIA SPENCER Referring Unavailable HOY, ARLETH M Primary Care Unavailable JOHANNAASIA ALLEN Referring Unavailable HOY, ARLEHT M Primary Care Unavailable LATONYA, BRYAN Attending Unavailable LATONYA, BRYAN Referring Unavailable HOY, ARLETH M Primary Care Unavailable HOY, ARLETH M Primary Care Unavailable SHERYL ESPINOZA Attending Unavailable Diana HAWKINS Attending Unavailable ELIZABETH VACA Attending Unavailable Arleth Acharya MD Primary Care Provider [phone] CURLY MORALES Attending Unavailable CURLY MORALES Referring Unavailable ANGELA, RUKHSANA Referring Unavailable KHRIS BUCHANAN Attending Unavailable ANGELA, RUKHSANA Attending Unavailable ANGELA, RUKHSANA Attending Unavailable ANGELA, RUKHSANA Attending Unavailable MONIQUE BURKETT Attending Unavailable ANGELA, RUKHSANA Attending Unavailable KHRIS BUCHANAN Referring Unavailable KHRIS BUCHANAN Referring Unavailable Allergies Allergy Classification Reported Allergen(s) Allergy Type Date of Onset Reaction(s) Facility NSAIDs (1 source) Ketorolac; Translations: [ketorolac] Drug Allergy Unknown (qualifier value) [facility] Opioid Agonists (1 source) Meperidine; Translations: [meperidine] Drug Allergy [facility] Prochlorperazine (1 source) Prochlorperazi ne; Translations: [prochlorperaz ine] Drug Allergy Hallucinations (finding) [facility] (8 sources) ketorolac; Translations: [Toradol] Drug Allergy 05-29-20 15 Unknown (qualifier value) [facility] Repository (6 sources) meperidine; Translations: [Demerol HCl] Drug Allergy [facility] Repository (2 sources) Meperidine Drug Allergy 08-01-20 13 [facility] Repository (1 source) Desonide Drug Allergy [facility] Repository (6 sources) Ketorolac; Translations: [ketorolac] Drug Allergy 11-22-19 22 Unknown Reaction [facility] (8 sources) Meperidine; Translations: [meperidine] Drug Allergy 08-01-20 13 Rash [facility] (6 sources) Prochlorperazi ne; Translations: [prochlorperaz ine] Drug Allergy 02-12-20 23 Hallucinations (finding), Hallucinations [facility] (1 source) Desonide; Translations: [DESONIDE] Drug Allergy 01-09-20 21 [facility] Repository (2 sources) Ketorolac; Translations: [KETOROLAC TROMETHAMINE] Drug Allergy 08-22-20 15 Rash [facility] Repository (1 source) No Known Medication Allergies; Translations: [No Known Medication Allergies] Propensity to adverse reactions (disorder) [facility] Repository Medications Current Medications Medication Drug Class(es) Dates Sig (Normalized) Sig (Original) acetaminophen 500 mg oral tablet (1 source) take 2 tablets by mouth every six hours as needed for pain acetaminophen (TYLENOL) 500 MG tablet Take 2 tablets by mouth every 6 hours as needed for Pain 0 Active acetaminophen 325 mg / HYDROcodone bitartrate 5 mg oral tablet (8 sources) Opioid Agonist Start: 09-24-2023 [place] 325 mg-5 mg oral tablet 1 tab(s), Oral, q12hr for pain, 20 tab(s), Refill(s) 0, 1 to 2 tabs every 4 to 6 hours as needed for pain, Pain, [facility] #[id number], 167, cm, 09/13/23 12:07:00 EST, Height/Length Dosing, 70.5, kg, 09/13/23 12:07:00 EST, Weight Dosing Start Date: 09/24/23 Status: Ordered Start: 05-27-2023 take 1 tablet by mary th twice daily Hydrocodone-Acetaminophen Active 1 TAB P O Twice daily May 27, 2023 12:00am Start: 07-27-2022 [place] 325 mg-5 mg oral tablet 1 tab(s), Oral, BID Pain 8-10, 20 tab(s), Refill(s) 0, [facility] #[id number], 167, cm, 06/29/22 9:28:00 EDT, Height/Length Dosing, 69, kg, 06/29/22 9:28:00 EDT, Weight Dosing Start Date: 07/27/22 Status: Ordered Start: 06-29-2022 take 1 tablet by mary th every six hours [place] 325 mg-5 mg oral tablet tab(s), Or al, q6hr, Refill(s) 0 Start Date: 06/29/22 Status: Ordered Start: 08-06-2020 End: 05-14-2024 take 1 tablet by mouth every eight hours as needed for pain HYDROcodone-acetaminophen (NORCO) 5-325 MG per tablet Take 1 tablet by mouth every 8 hours as needed for Pain. 0 08/06/2020 05/14/2024 Active acetaminophen 325 mg / oxyCODONE hydrochloride 5 mg oral tablet (1 source) Opioid Agonist Start: 02-26-2021 oxyCODONE-acetaminophen (PERCOCET) 5-325 MG per tablet Take 1 tablet by mouth every 6 hours as needed for Pain. Max Daily Amount: 4 tablets 0 02/26/2021 Active Air Cast (3 sources) Start: 01-06-2024 Air Cast Active 0 .Route 1 January 06, 2024 12:00am As directed amitriptyline hydrochloride 100 mg oral tablet (10 sources) Tricyclic Antidepressant Start: 10-21-2023 take 1 tablet by mouth once daily amitriptyline (ELAVIL) 100 MG tablet Take 1 tablet by mouth nightly 0 10/21/2023 Active Start: 05-27-2023 take 50 mg by mouth [...] TAB PO Daily May 27, 2023 12:00am Calcium Citrate / Vitamin D (1 source) Calcium Citrate-Vitamin D (CALCIUM CITRATE + D PO) Take by mouth 2 times daily 0 Active cephalexin 500 mg oral capsule (1 source) Cephalosporin Antibacterial Start: 10-06-2023 take 1 capsule by mouth every twelve hours Keflex 500 mg Cap 500 mg = 1 cap(s), Oral, q12hr, # 20 cap(s), Refills(s) 0, Pharmacy: [facility] #[id number], 167, cm, 09/13/23 12:07:00 EST, Height/Length Dosing, 70.5, kg, 09/13/23 12:07:00 EST, Weight Dosing Start Date: 10/06/23 Status: Ordered chlordiazePOXIDE hydrochloride 5 mg / clidinium bromide 2.5 mg oral capsule (1 source) Anticholinergic, Benzodiazepine chlordiazePOXIDE-cl idinium (LIBRAX) 5-2.5 MG per capsule citalopram 40 mg oral tablet (2 sources) Serotonin Reuptake Inhibitor Start: 10-23-2014 take 40 mg by mouth once daily Celexa 40 mg, Oral, Daily, Refills(s) 0, Depression Start Date: 10/23/14 Status: Ordered cyclobenzaprine hydrochloride 10 mg oral tablet (1 source) Muscle Relaxant cyclobenzaprine (FLEXERIL) 10 MG tablet Take 1 tablet by mouth 0 Active dexamethasone 6 mg oral tablet (1 source) Corticosteroid take 1 tablet by mouth twice daily at mealtime dexAMETHasone (DECADRON) 6 MG tablet Take 1 tablet by mouth 2 times daily (with meals) 0 Active diclofenac sodium 0.01 mg/mg topical gel (1 source) Nonsteroidal Anti-inflammatory Drug Start: 07-06-2019 diclofenac sodium (VOLTAREN) 1 % GEL Apply 1 Application topically 4 times daily as needed 0 07/06/2019 Active dicyclomine hydrochloride 20 mg oral tablet (1 source) Anticholinergic Start: 02-25-2018 take 1 tablet by mouth every four hours as needed dicyclomine (BENTYL) 20 MG tablet Take 1 tablet by mouth every 4 hours as needed (Flank tenderness) 30 tablet 0 02/25/2018 Active docusate sodium 100 mg oral capsule (1 source) take 1 capsule by mouth twice daily docusate (COLACE, DULCOLAX) 100 MG CAPS Take 1 capsule by mouth 2 times daily 0 Active fluconazole 100 mg oral tablet (1 source) Azole Antifungal take 1 tablet by mouth once daily fluconazole (DIFLUCAN) 100 MG tablet Take 1 tablet by mouth daily 0 Active gabapentin 300 mg oral capsule (5 sources) Anti-epileptic Agent Start: 03-07-2024 take 1 capsule by mouth once daily gabapentin 300 mg Cap 300 mg = 1 cap(s), Oral, Daily, Refills(s) 0 Start Date: 03/07/24 Status: Ordered Start: 01-06-2024 End: 05-14-2024 take 1 capsule by mouth twice daily gabapentin (NEURONTIN) 300 MG capsule Take 1 capsule by mouth 2 times daily. 0 01/06/2024 05/14/2024 Active Start: 01-06-2024 Gabapentin Act zohaib MG PO January 06, 2024 12:00am lansoprazole 15 mg delayed release oral capsule (1 source) Proton Pump Inhibitor take 1 capsule by mouth twice daily lansoprazole (PREVACID) 15 MG delayed release capsule Take 1 capsule by mouth 2 times daily 0 Active lidocaine 0.05 mg/mg medicated patch (1 source) Antiarrhythmic, Amide Local Anesthetic Start: apply 1 dose transdermal route once daily as needed for pain lidocaine (LIDODERM) 5 % Place 1 patch onto the skin daily as needed for Pain Place 1 patch on the skin daily as needed for pain (pain) for up to 15 doses. Remove & Discard patch within 12 hours or as directed by MD 0 10/02/2022 Active metoclopramide 10 mg oral tablet (5 sources) Dopamine-2 Receptor Antagonist Start: metoclopramide (REGLAN) 10 MG tablet Take 1 tablet by mouth 0 05/27/2023 Active Multiple Vitamins-Minerals (MULTIVITAMIN ADULT PO) (1 source) Multiple Vitamins-Minerals (MULTIVITAMIN ADULT PO) Take by mouth daily 0 Active Multivitamin (Multiple Vitamin) Tablet (4 sources) Start: take 1 tablet by mouth once daily Multivitamin (Multiple Vitamin) Tablet Active 1 TAB PO Daily May 27, 2023 12:00am Multivitamin preparation (5 sources) Start: multivitamin Daily, Refill(s) 0 Start Date: 06/29/22 Status: Ordered nirmatrelvir/ritonavir (PAXLOVID, 150/100,) 10 x 150 MG & 10 x 100MG TBPK (1 source) take 2 tablets by mouth twice daily nirmatrelvir/ritonavi r (PAXLOVID, 150/100,) 10 x 150 MG & 10 x 100MG TBPK Take 2 tablets by mouth 2 times daily 0 Active nystatin 673701 unt/ml oral suspension (1 source) Polyene Antifungal nystatin (MYCOSTATIN ) 157520 UNIT/ML suspension Take by mouth 0 Active ondansetron 4 mg oral tablet (1 source) Serotonin-3 Receptor Antagonist Start: 05-18-2 018 take 1 tablet by mouth every four hours as needed for nausea ondansetron (ZOFRAN) 4 MG tablet Take 1 tablet by mouth every 4 hours as needed for Nausea or Vomiting 15 tablet 0 02/25/2018 Active oxyCODONE hydrochloride 5 mg oral tablet (2 sources) Opioid Agonist Start: oxyCODONE 5 mg Tab Refills(s) 0 Start Date: 09/13/23 Status: Ordered pantoprazole 40 mg delayed release oral tablet (10 sources) Proton Pump Inhibitor Start: 023 take 1 tablet by mouth once daily Pantoprazole (Protonix) 40 mg Tablet,Delayed Release (Dr/Ec) Active 40 MG PO Daily May 27, 2023 12:00am Start: 10-23-2014 take 40 mg by mouth once daily pantoprazole 40 mg, Oral, Daily, Refills(s) 0, Control of stomach acid Start Date: 10/23/14 Status: Ordered take 1 tablet by mary once daily pantoprazole (PROTONIX) 20 MG tablet Take 1 tablet by mouth daily 0 Active phenazopyridine hydrochloride 100 mg oral tablet (1 source) take 1 tablet by mouth three times daily as needed phenazopyridine (PYRIDIUM) 100 MG tablet Take 1 tablet by mouth 3 times daily as needed 0 Active promethazine hydrochloride 25 mg oral tablet (10 sources) Phenothiazine Start: 2 take 1 mg rectal route every six hours promethazine 25 mg Supp mg supp, Rectal, q6hr, Refills(s) 0 Start Date: 06/29/22 Status: Ordered Start: 08-06-2020 take 25 mg by mouth every four to six hours Promethazine Active 25 MG PO EVERY 4-6 HOURS May 27, 2023 12:00am sucralfate 1000 mg oral tablet (5 sources) Aluminum Complex Start: 05-27-2023 take 1 tablet by mouth four times daily Sucralfate (Carafate) 1 gram Tablet Active 1 GM PO Four times daily May 27, 2023 12:00am SUMAtriptan 100 mg oral tablet (4 sources) Serotonin-1b and Serotonin-1d Receptor Agonist Start: 03-07-2024 Imitrex 100 mg Tab 100 mg = 1 tab(s), Oral, as needed for Migraine, Refills(s) 0 Start Date: 03/07/24 Status: Ordered Start: 03-07-2024 take 1 tablet by mary th once as needed SUMAtriptan (IMITREX) 100 MG tablet Take 1 tablet by mouth once as needed for Migraine 0 03/07/2024 Active Start: 09-13-2023 SUMAtriptan 10 0 mg Tab Refills(s) 0 Start Date: 09/13/23 Status: Ordered tamsulosin hydrochloride 0.4 mg oral capsule (1 source) alpha-Adrenergic Inez Start: 08-10-2023 tamsulosin (FLOMAX) 0.4 MG capsule Take 1 capsule by mouth 0 08/10/2023 Active tiZANidine 4 mg oral tablet (10 sources) Central alpha-2 Adrenergic Agonist Start: 05-27-2023 take 8 mg by mouth once daily at bedtime Tizanidine Active 8 MG PO Daily at bedtime May 27, 2023 12:00am Start: 06-29-2022 take 1 mg by mouth t hree times daily Zanaflex 4 mg oral capsule mg cap(s), Oral, TID, Refills(s) 0 Start Date: 06/29/22 Status: Ordered Start: 08-19-2012 tiZANidine (ZA NAFLEX) 4 MG tablet Take 1 tablet by mouth as needed 0 08/19/2012 Active topiramate 50 mg oral tablet (5 sources) Start: 01-06-2024 Topiramate Act zohaib MG PO January 06, 2024 12:00am take 1 tablet by mouth once ania y topiramate (TOPAMAX) 25 MG tablet Take 25 mg by mouth daily 0 Active take 50 mg by mouth once daily t opiramate ER (TROKENDI XR) 50 MG CP24 Take 50 mg by mouth daily 0 Active triamcinolone acetonide 1 mg/ml topical cream (1 source) Corticosteroid Start: 11-22-2023 triamcinolone (KENALOG) 0.1 % cream Apply 1 Application topically in the morning and 1 Application in the evening. 0 11/22/2023 Active vitamin B12 (10 sources) Vitamin B12 Start: 04-13-2024 cyanocobalamin 1000 MCG/ML injection Start: 05-27-2023 inject 1000 ug by in tramuscular injection every 30 days Cyanocobalamin (Vitamin B-12) Active 1000 MCG IM Q30D May 27, 2023 12:00am Start: 06-29-2022 Vitamin B12 Re fills(s) 0 Start Date: 06/29/22 Status: Ordered Completed/Discontinued Medications Medication Drug Class(es) Dates Sig (Normalized) Sig (Original) ferrous sulfate 325 mg oral tablet (5 sources) Start: 05-27-2023 End: 05-28-2023 take 325 mg by mouth once daily Ferrous Sulfate Discontinued 325 MG PO Daily May 27, 2023 12:00am May 28, 2023 11:26am Ferrous Sulfate (IRON) 28 MG TABS Take by mouth daily 0 Active hyoscyamine sulfate 0.125 mg sublingual tablet (5 sources) Start: 05-27-2023 End: 05-28-2023 take 0.125 mg under the tongue every six hours Hyoscyamine Sulfate Discontinued 0.125 MG SUBLINGUAL Q6H May 27, 2023 12:00am May 28, 2023 11:06am take 1 tablet under the tongue every four hours as needed hyoscyamine (LEVSIN/SL) 125 M[address] tablet [address] 1 tablet under the tongue every 4 hours as needed for Cramping 0 Active iopamidol (ISOVUE-370) 76 % injection 75 mL (1 source) Start: 05-01-2024 End: 05-01-2024 iopamidol (ISOVUE-370) 76 % injection 75 mL Problems Active Problems Problem Classification Problem Date Documented Da te Episodic/Chronic Anxiety disorders (6 sources) Anxiety; Translations: [Anxiety disorder, unspecified] Onset: 09-10-2022 06-26-2022 Chronic Coagulation and hemorrhagic disorders (1 source) Hereditary factor VIII deficiency; 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] Onset: 06-28-2023 Chronic Complications of surgical procedures or medical care [...] occlusion of ureter, unspecified] Onset: 08-05-2022 Chronic Mood disorders (6 sources) Depressive disorder; Translations: [...] Onset: 12-09-2021 Chronic Other aftercare (1 source) longterm (current) use of aspirin; Translations: [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 (CURRENT) USE OF ASPIRIN] Onset: 06-03-2022 Episodic Other aftercare (2 sources) Other m[facility] (current) drug therapy; Translations: [OTHER 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 (CURRENT) DRUG THERAPY] Onset: 08-12-2021 Episodic [...] LEFT LOWER LEG] Onset: 04-07-2022 Episodic Other connective tissue disease (2 sources) Neuralgia and neuritis, unspecified; Translations: [Neuralgia and neuritis, unspecified] Onset: 10-19-2024 Episodic Other gastrointestinal disorders (1 source) Irritable [...] Onset: 04-07-2023 Chronic Other nervous system disorders (1 source) [...] OTH PART DIGESTV TRACT] Onset: 01-27-2023 Episodic Residual codes; unclassified (2 sources) Other specified postprocedural states; Translations: [Other specified postprocedural states] Onset: 07-12-2022 Episodic Screening and history of mental health [...] Onset: 04-29-2022 Episodic Calculus of urinary tract (18 sources) Kidney stone; Translations: [Calculus of kidney] Onset: 02-25-2018 Episodic Complication of device; implant or graft (7 sources) Pain due to internal orthopedic prosthetic devices, implants and grafts, initial encounter; Translations: [Instability of internal left knee prosthesis, initial encounter] Onset: 06-01-2022 Episodic Deficiency and other anemia (1 source) [...] unspecified, without bleeding] Onset: 12-10-2023 Episodic Genitourinary symptoms and ill-defined conditions (20 sources) Blood in urine; Translations: [Gross hematuria] Onset: 02-25-2018 Episodic Malaise and fatigue (1 source) Other [...] SPECIFIED SURGICAL AFTERCARE] Onset: 01-09-2022 Episodic Other and unspecified benign neoplasm (1 source) Pleomorphic adenoma of parotid gland; Translations: [Benign neoplasm of parotid gland] 05-01-2024 Episodic Other gastrointestinal disorders (2 sources) Bariatric surgery status; Translations: [BARIATRIC SURGERY STATUS] Onset: 01-27-2023 Episodic Other gastrointestinal disorders (1 source) Drug induced constipation; Translations: [Drug induced constipation] Onset: 12-10-2023 Episodic Other non-traumatic joint disorders (6 sources) [...] [ACUTE RECURRENT FRONTAL SINUSITIS] Onset: 10-09-2022 Episodic Substance-related disorders (2 sources) Opioid use, unspecified, uncomplicated; Translations: [Opioid use, unspecified, uncomplicated] Onset: 07-19-2024 Episodic Unclassified (1 source) CONTACT W/AND (SUSP) EXPOS COVID-19; Translations: [CONTACT W/AND (SUSP) EXPOS COVID-19] Onset: 10-06-2022 Results Test Name Value Interpretation Reference Range Facility [facility] 12-05-2024 [place] [address] CC: No chief complaint on file. SUBJECTIVE: Elvi Moore is a 43 y.o. female who presents with chronic pain in her left knee. She uses norco TID to manage pain. She has a spinal cord stimulator in place that provided 50% benefit. 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 Patient Active Problem List Diagnosis Anxiety Abdominal pain Acute lower urinary tract infection Artificial knee joint present Chronic pain Depressive disorder Easy bruising Follow-up examination following treatment with high-risk medication Other microscopic hematuria Hematuria Internal derangement of left knee Inverted nipple Kidney stone Left flank pain Morbid obesity (CMS/HCC) Nipple discharge Osteoarthritis of knee Other specified postprocedural states Pain in left arm Right medial knee pain Pain of left calf Pain of right breast Pes anserinus bursitis of left knee Platelet function defect (CMS/HCC) Radial styloid tenosynovitis S/P gastric bypass S/P left knee arthroscopy History of total knee arthroplasty, left Complex regional pain syndrome type 1 of left lower extremity Presence of neurostimulator Vaginal dryness Acute constipation GERD (gastroesophageal reflux disease) Iron deficiency anemia following bariatric surgery Nausea and vomiting Vertebral artery occlusion, unspecified laterality Ileus (CMS/HCC) Chronic, continuous use of opioids Neuralgia and neuritis Past Surgical History: Procedure Laterality Date APPENDECTOMY [...] [Prochlorperazine] Hallucinations Meperidine Rash Other reaction(s): Unknown Family History Problem Relation Name Age of Onset Brain cancer Mother Breast cancer Sister Kidney cancer Maternal Grandmother Prostate cancer Paternal Grandfather Cancer Father Tye Shearn Cancer Sister January Physical Exam Alert and oriented Non labored breathing Pulse is normal in rate and rhythm. Tenderness and restricted range of motion in left knee No results found for this or any previous visit from the past 360 days. Assessment/Plan GENICULAR NERVE NEURITIS/NEURALGIA Discussed chronic pain, medication use, treatment goals. Medication risk and benefits discussed. The Spine Diagram and Test results were used to explain the condition. PLAN: Proceed with genicular nerve block as planned Documented by: Sagar Montez, PGY2 Anesthesiology Please note that portions of this note were generated using voice recognition [employer] dictation software. Although every effort was made to ensure the accuracy of this automated acid tank liner, some errors in acid tank liner may have occurred. Normal [facility] NURSNOTEon 12-05-2024 NURSNOTE Interventional Pain Management Nursing Note / Nurse Post-Call Note Narrative Post call for Left Genicular nerve block pt stated she received 40% relief for approximately 4-6 hours post procedure. Appointment scheduled in clinic to discuss options. Pre-Op Pain Assessment Pain Assessment Pain Score: 6 Pain Location: Knee Pain Descriptors: Aching, Burning, Sharp Pain Frequency: Constant/continuous Pain Interventions: Medication (See MAR) Post-Op Pain Assessment Pain Assessment Pain Score: 6 Pain Location: Knee Pain Descriptors: Aching, Burning, Sharp Pain Frequency: Constant/continuous Pain Interventions: Medication (See MAR) [facility] Refillon 12-04-2024 Refill [id number] Madyson Moore 1980 F Date Provider Department Center 12/04/2024 RUKHSANA ESPINOZA MP PAIN Medical Pavi Family History Problem Relation Age of Onset Brain cancer Mother Breast cancer Sister Kidney cancer Maternal Grandmother Prostate cancer Paternal Grandfather Cancer Father Cancer Sister Family Status - Relation Status Age at Mother Sister Maternal Grandmother Paternal Grandfather Father Sister Reason for Visit and Comments: Med Refill [[id number]] [facility] Reminderson 10-23-2024 Reminders Reminders From: Maggie Vargas To: EU - Administrative; Sent: 03/07/2024 16:37:39 EDT Show up: 09/10/2024 16:37:00 EST Subject: Ambulatory Reminder Due Date/Time: 02/27/2025 16:37:00 EDT Reminder/Recall Please schedule patient for 1 yr f/u with KUB with [facility] when schedule is built that far out. Due late February 2025 LVM to call and schedule February 2025 appointment. LVM to schedule february 2025 1 yr f/u w/ KUB w/ [facility]. Normal [facility] Follow-Upon 10-19-2024 Follow-Up [id number] Madyson Moore 1980 F Date Provider Department Center 10/19/2024 RUKHSANA ESPINOZA MP PAIN Medical Pavi Family History Problem Relation Age of Onset Brain cancer Mother Breast cancer Sister Kidney cancer Maternal Grandmother Prostate cancer Paternal Grandfather Cancer Father Cancer Sister Family Status - Relation Status Age at Mother Sister Maternal Grandmother Paternal Grandfather Father Sister Level of Service:64945 [place] OFFICE/OUTPATIENT ESTABLISHED LOW MDM 20 MIN Reason for Visit and Comments: Med Management [[id number]] - No bottles for pill count Patient educated on bringing bottles to every visit Follow-up [[id number]] - Left knee pain Normal [facility] Orders Onlyon 10-18-2024 Orders Only [id number] LudyModesto tilleynicole ma 1980 F Date Provider Department Center 10/18/2024 [id number], NADINE MOCTEZUMA PAIN Medical Pavi Family History Problem Relation Age of Onset Brain cancer Mother Breast cancer Sister Kidney cancer Maternal Grandmother Prostate cancer Paternal Grandfather Cancer Father Cancer Sister Family Status - Relation Status Age at Mother Sister Maternal Grandmother Paternal Grandfather Father Sister Normal [facility] Refillon 10-07-2024 Refill [id number] TeresaMadyson ma 1980 F Date Provider Department Center 10/07/2024 RUKHSANA ESPINOZA MP PAIN Medical Pavi Family History Problem Relation Age of Onset Brain cancer Mother Breast cancer Sister Kidney cancer Maternal Grandmother Prostate cancer Paternal Grandfather Cancer Father Cancer Sister Family Status - Relation Status Age at Mother Sister Maternal Grandmother Paternal Grandfather Father Sister Reason for Visit and Comments: Med Refill [[id number]] Normal [facility] Orders Onlyon 09-12-2024 Orders Only [id number] LudyMadyson tilley ma 1980 F Date Provider Department Center 09/12/2024 RUKHSANA ESPINOZA MP PAIN Medical Pavi Family History Problem Relation Age of Onset Brain cancer Mother Breast cancer Sister Kidney cancer Maternal Grandmother Prostate cancer Paternal Grandfather Cancer Father Cancer Sister Family Status - Relation Status Age at Mother Sister Maternal Grandmother Paternal Grandfather Father Sister Normal [facility] Refillon 08-10-2024 Refill [id number] Madyson Moore 1980 F Date Provider Department Center 08/10/2024 RUKHSANA ESPINOZA MP PAIN Medical Pavi Family History Problem Relation Age of Onset Brain cancer Mother Breast cancer Sister Kidney cancer Maternal Grandmother Prostate cancer Paternal Grandfather Cancer Father Cancer Sister Family Status - Relation Status Age at Mother Sister Maternal Grandmother Paternal Grandfather Father Sister Reason for Visit and Comments: Med Refill [[id number]] Normal [facility] CBC AND AUTO DIFFon 08-09-20 24 ABSOLUTE BASOPHIL 0.0 X10E9/L Normal 0.0-0.2 [facility] Comment on above: Performed By: #### C GALEN, CMP ####[facility] ([id number])[address] [place] [address] 04830 ABSOLUTE NEUTROPHIL 2.5 X10E9/L Normal 1.5-6.6 [facility] Comment on above: Performed By: #### C BCA, CMP ####[facility] ([id number])[address] [place] [address] 76045 Basophils/100 WBC (Bld) 0.4 % Normal [facility] Comment on above: Performed By: #### C BCA, CMP ####[facility] ([id number])[address] [place] [address] 04330 Eosinophils (Bld) [#/Vol] 0.1 10*3/uL Normal 0.0-0.4 [facility] Comment on above: Performed By: #### C BCA, CMP ####[facility] ([id number])[address] [place] [address] 02008 Eosinophils/100 WBC (Bld) 1.3 % Normal [facility] Comment on above: Performed By: #### C BCA, CMP ####[facility] ([id number])[address] [place] [address] 93478 Erythrocyte distribution width (RBC) [Ratio] 14.2 % Normal 11.5-15.0 [facility] Comment on above: Performed By: #### C BCA, CMP ####[facility] ([id number])[address] [place] [address] 81022 Hematocrit (Bld) [Volume fraction] 34.3 % Low 35-47 [facility] Comment on above: Performed By: #### C GALEN, CMP ####[facility] ([id number])[address] [place] [address] 14095 Hemoglobin (Bld) [Mass/Vol] 11.3 g/dL Low 11.7-15.5 [facility] Comment on above: Performed By: #### C GALEN, CMP ####[facility] ([id number])[address] [place] [address] 24395 Lymphocytes (Bld) [#/Vol] 2.6 10*3/uL Normal 1.0-3.5 [facility] Comment on above: Performed By: #### C GALEN, CMP ####[facility] ([id number])[address] [place] [address] 80566 Lymphocytes/100 WBC (Bld) 45.9 % Normal [facility] Comment on above: Performed By: #### C BCA, CMP ####[facility] ([id number])[address] [place] [address] 34843 MCH (RBC) [Entitic mass] 27.4 pg Normal 27-34 [facility] Comment on above: Performed By: #### C BCA, CMP ####[facility] ([id number])[address] [place] [address] 93275 MCHC (RBC) [Mass/Vol] 33.0 g/dL Normal 32-36 [facility] Comment on above: Performed By: #### C GALEN, CMP ####[facility] ([id number])[address] [place] [address] 67929 MCV (RBC) [Entitic vol] 83 fL Normal 80-100 [facility] Comment on above: Performed By: #### C GALEN, CMP ####[facility] ([id number])[address] [place] [address] 06256 Monocytes (Bld) [#/Vol] 0.4 10*3/uL Normal 0-0.9 [facility] Comment on above: Performed By: #### C GALEN, CMP ####[facility] ([id number])[address] [place] [address] 94026 Monocytes/100 WBC (Bld) 6.8 % Normal [facility] Comment on above: Performed By: #### C GALEN, CMP ####[facility] ([id number])[address] [place] [address] 82875 Neutrophils/100 WBC (Bld) 45.6 % Normal [facility] Comment on above: Performed By: #### C GALEN, CMP ####[facility] ([id number])[address] [place] [address] 72257 Platelet mean volume (Bld) [Entitic vol] 7.3 fL Normal 7-12 [facility] Comment on above: Performed By: #### C GALEN, CMP ####[facility] ([id number])[address] [place] [address] 48919 Platelets (Bld) [#/Vol] 253 10*3/uL Normal 150-450 [facility] Comment on above: Performed By: #### C BCA, CMP ####[facility] ([id number])[address] [place] [address] 03442 RBC COUNT 4.12 X10E12/L Normal 3.80-5.20 [facility] Comment on above: Performed By: #### C BCA, CMP ####[facility] ([id number])[address] [place] [address] 58306 WBC (Bld) [#/Vol] 5.6 10*3/uL Normal 4.0-11.0 [facility] Comment on above: Performed By: #### C BCA, CMP ####[facility] ([id number])[address] [place] [address] 27573 COMPREHENSIVE METABOLIC PANE [facility] 08-09-2024 Albumin [Mass/Vol] 4.3 g/dL Normal 3.2-5.3 [facility] Comment on above: Performed By: #### C BCA, CMP ####[facility] ([id number])[address] [place] [address] 38622 ALP [Catalytic activity/Vol] 93 U/L Normal 39-130 [facility] Comment on above: Performed By: #### C BCA, CMP ####[facility] ([id number])[address] [place] [address] 68741 ALT [Catalytic activity/Vol] 14 U/L Normal 0-31 [facility] Comment on above: Performed By: #### C BCA, CMP ####[facility] ([id number])[address] [place] [address] 08698 Anion gap [Moles/Vol] 8 mmol/L Normal 5-15 [facility] Comment on above: Performed By: #### C BCA, CMP ####[facility] ([id number])[address] [place] [address] 64202 AST [Catalytic activity/Vol] 14 U/L Normal 0-41 [facility] Comment on above: Performed By: #### C BCA, CMP ####[facility] ([id number])[address] [place] [address], [place] [address] Bilirubin [Mass/Vol] 0.3 mg/dL Normal 0.3-1.2 [facility] Comment on above: Performed By: #### C BCA, CMP ####[facility] ([id number])[address] [place] [address], [place] [address] Calcium [Mass/Vol] 8.8 mg/dL Normal 8.5-10.5 [facility] Comment on above: Performed By: #### C BCA, CMP ####[facility] ([id number])[address] [place] [address] 82079 Chloride [Moles/Vol] 105 mmol/L Normal 98-109 [facility] Comment on above: Performed By: #### C BCA, CMP ####[facility] ([id number])[address] [place] [address] [place] [address] CO2 [Moles/Vol] 26 mmol/L Normal 22-32 [facility] Comment on above: Performed By: #### C BCA, CMP ####[facility] ([id number])[address] [place] [address] 09389 Creatinine [Mass/Vol] 0.66 mg/dL Normal 0.40-1.00 [facility] Comment on above: Result Comment: METH OD TRACEABLE TO IDMS STANDARD Performed By: #### C BCA, CMP ####[facility] ([id number])[address] [place] [address], [place] [address] eGFR (CKD-EPI) NON-RACE DEPENDENT >90 Normal >59 [facility] Comment on above: Result Comment: Reported eGFR is based on the CKD-EPI 2020 equation that does not use a race coefficient. Performed By: #### C BCA, CMP ####[facility] ([id number])[address] [place] [address] [place] [address] Glucose [Mass/Vol] 100 mg/dL High 65-99 [facility] Comment on above: Performed By: #### C BCA, CMP ####[facility] ([id number])[address] [place] [address] 24682 Potassium [Moles/Vol] 3.8 mmol/L Normal 3.5-5.0 [facility] Comment on above: Performed By: #### C BCA, CMP ####[facility] ([id number])[address] [place] [address] 63972 Protein [Mass/Vol] 7.2 g/dL Normal 6.0-8.0 [facility] Comment on above: Performed By: #### C BCA, CMP ####[facility] ([id number])[address] [place] [address] 91380 Sodium [Moles/Vol] 139 mmol/L Normal 134-146 [facility] Comment on above: Performed By: #### C BCA, CMP ####[facility] ([id number])[address] [place] [address] 67116 Urea nitrogen [Mass/Vol] 18 mg/dL Normal 5-23 [facility] Comment on above: Performed By: #### C BCA, CMP ####[facility] ([id number])[address] [place] [address] ABDOMEN AND PELVIS WO CON Ton [...] Christelle Abdi DO on 08/09/2024 1:58 AM I, Sathya Gates MD have personally reviewed the image(s) and agree with and/or edited the report Finalized by Sathay Gates MD on 08/09/2024 2:08 AM Normal [facility] URN MACROSCOPIC NURon 2023 BILIRUBIN JUNIOR Negative Normal NEG [facility] Comment on above: Performed By: #### N UM ####[facility] ([id number])[address] [place] [address] 21481 BLOOD/HGB JUNIOR Large Abnormal NEG [facility] Comment on above: Performed By: #### N UM ####[facility] ([id number])[address] [place] [address] 15148 GLUCOSE JUNIOR Negative Normal NEG [facility] Comment on above: Performed By: #### N UM ####[facility] ([id number])[address] [place] [address] 13748 KETONES JUNIOR Negative Normal NEG [facility] Comment on above: Performed By: #### N UM ####[facility] ([id number])[address] [place] [address], [place] [address] LEUKOCYTE ESTERASE JUNIOR Trace Abnormal NEG [facility] Comment on above: Performed By: #### N UM ####[facility] ([id number])[address] [place] [address], [place] [address] NITRITE JUNIOR Negative Normal NEG [facility] Comment on above: Performed By: #### N UM ####[facility] ([id number])[address] [place] [address] [place] [address] PH JUNIOR 5.5 Normal 5.0-8.5 [facility] Comment on above: Performed By: #### N UM ####[facility] ([id number])[address] [place] [address] 53327 PROTEIN JUNIOR 30 mg/dL Abnormal NEG [facility] Comment on above: Performed By: #### N UM ####[facility] ([id number])[address] [place] [address] [place] [address] SPECIFIC GRAVITY JUNIOR >=1.030 Normal 1.003-1.035 [facility] Comment on above: Performed By: #### N UM ####[facility] ([id number])[address] [place] [address] 44570 UROBILINOGEN JUNIOR 1.0 eu/dL Normal <1.1 [facility] Comment on above: Performed By: #### N UM ####[facility] ([id number])[address] [place] [address] [place] [address] Follow-Upon 07-24-2024 Follow-Up [id number] Madyson Moore 1980 F Date Provider Department Center 07/24/2024 MONIQUE COON MP ORTHO MPORTHO Family History Problem Relation Age of Onset Brain cancer Mother Breast cancer Sister Kidney cancer Maternal Grandmother Prostate cancer Paternal Grandfather Cancer Father Cancer Sister Family Status - Relation Status Age at Mother Sister Maternal Grandmother Paternal Grandfather Father Sister Level of Service:31330 [place] OFFICE/OUTPATIENT ESTABLISHED MOD MDM 30 MIN (GC,57) Reason for Visit and Comments: New Patient [632] - History of Left knee revision that was performed on 06/01/22 , initial TKA in 10/[address] . Here today with chronic anterior knee pain since surgery. Follow-up [509476] - History of Left knee revision that was performed on 06/01/22 , initial TKA in 10/[address] . Here today with chronic anterior knee pain since surgery. Normal [facility] Follow-Upon 07-19-2024 Follow-Up [id number] Madyson Moore ma 1980 F Date Provider Department Center 07/19/2024 170-RUKHSANA MILLER PAIN Medical Pavi Family History Problem Relation Age of Onset Brain cancer Mother Breast cancer Sister Kidney cancer Maternal Grandmother Prostate cancer Paternal Grandfather Cancer Father Cancer Sister Family Status - Relation Status Age at Mother Sister Maternal Grandmother Paternal Grandfather Father Sister Level of Service:04836 [place] OFFICE/OUTPATIENT ESTABLISHED LOW MDM 20 MIN Reason for Visit and Comments: Med Management [[id number]] - Refill Hydrocodone-acetaminophen Pill count Med Refill [[id number]] - Gabapentin Normal [facility] Surgical Pathology Reporton 07-17-2024 Surgical Pathology Report (NOTE) Path Number: [id number] -- Diagnosis -- RIGHT PAROTID GLAND, 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 Sathya Lockett M.D. 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 tm Thalia Madrid/kb2:07/17/2024 Microscopic Description The circumscribed tumor nodule contains nests and cords of benign epithelial cells embedded in chondromyxoid stroma, consistent with pleomorphic adenoma. The surrounding parotid gland tissue is unremarkable. A small, benign lymph node is present in the fibroadipose tissue surrounding the parotid gland. Processing Lab: [address] [address] Interpretation Performed at [address] [address] SURGICAL PATHOLOGY CONSULTATION Patient Name: ELVI MOORE [facility] Rec: [id number] [facility] ANATOMIC PATHOLOGY [facility]. [place], [place] [address] Normal [facility] C-REACTIVE PROTEINon 024 C REACTIVE PROTEIN (MG/L) IN SER/PLAS 1.7 mg/L Normal 0.0-7.0 [facility] Comment on above: Performed By: #### L [id number] ####[facility] ([facility])[address] [place] [address] Labon 07-14-2024 Lab [id number] Madyson Moore 1980 F Date Provider Department Center 07/14/2024 2245-[facility] O[facility] LAB RESOURCE [facility] OPD ME Medical C Family History Problem Relation Age of Onset Brain cancer Mother Breast cancer Sister Kidney cancer Maternal Grandmother Prostate cancer Paternal Grandfather Cancer Father Cancer Sister Family Status - Relation Status Age at Mother Sister Maternal Grandmother Paternal Grandfather Father Sister Normal [facility] SEDIMENTATION RATEon 024 SEDIMENTATION RATE, ERYTHROCYTE 20 mm/hr Normal <=20 [facility] Comment on above: Performed By: #### L [id number] ####[facility] ([facility])[address] [place] [address] Orders Onlyon 07-04-2024 Orders Only [id number] Madyson Moore ma 1980 F Date Provider Department Center 07/04/2024 71929-ZZXOUMIGDALIA MOE MP PAIN Medical Pavi Family History Problem Relation Age of Onset Brain cancer Mother Breast cancer Sister Kidney cancer Maternal Grandmother Prostate cancer Paternal Grandfather Cancer Father Cancer Sister Family Status - Relation Status Age at Mother Sister Maternal Grandmother Paternal Grandfather Father Sister Normal [facility] Orders Only [id number] Madyson Moore ma 1980 F Date Provider Department Center 07/04/2024 RUKHSANA ESPINOZA MP PAIN Medical Pavi Family History Problem Relation Age of Onset Brain cancer Mother Breast cancer Sister Kidney cancer Maternal Grandmother Prostate cancer Paternal Grandfather Cancer Father Cancer Sister Family Status - Relation Status Age at Mother Sister Maternal Grandmother Paternal Grandfather Father Sister Normal [facility] Refillon 07-03-2024 Refill [id number] Madyson Moore ma 1980 F Date Provider Department Center 07/03/2024 RUKHSANA ESPINOZA MP PAIN Medical Pavi Family History Problem Relation Age of Onset Brain cancer Mother Breast cancer Sister Kidney cancer Maternal Grandmother Prostate cancer Paternal Grandfather Cancer Father Cancer Sister Family Status - Relation Status Age at Mother Sister Maternal Grandmother Paternal Grandfather Father Sister Reason for Visit and Comments: Med Refill [[id number]] Normal [facility] Refillon 06-07-2024 Refill [id number] Madyson Moore ma 1980 F Date Provider Department Center 06/07/2024 RUKHSANA ESPINOZA MP PAIN Medical Pavi Family History Problem Relation Age of Onset Brain cancer Mother Breast cancer Sister Kidney cancer Maternal Grandmother Prostate cancer Paternal Grandfather Cancer Father Cancer Sister Family Status - Relation Status Age at Mother Sister Maternal Grandmother Paternal Grandfather Father Sister Reason for Visit and Comments: Med Refill [[id number]] Normal [facility] CT KNEE LEFT WO IV CONTRASTo n [...] with prior surgery. Electronically signed: Sathya Christianson. Not Ganesh Invalid Interpretation Code [facility] Office Visiton 06-01-2024 Follow-up visit [id number] Madyson Moore 1980 F Date Provider Department Center 06/01/2024 499-KHRIS BUCHANAN MP ORTHO MPORTHO Family History Problem Relation Age of Onset Brain cancer Mother Breast cancer Sister Kidney cancer Maternal Grandmother Prostate cancer Paternal Grandfather Cancer Father Cancer Sister Family Status - Relation Status Age at Mother Sister Maternal Grandmother Paternal Grandfather Father Sister Level of Service:68393 [place] OFFICE/OUTPATIENT ESTABLISHED LOW MDM 20 MIN Reason for Visit and Comments: New Patient [632] - Patient had 2nd knee replacement about a year ago, since then patient has been having increased pain and swelling, patient does see pain management and has stimulator in back Normal [facility] Refillon 05-09-2024 Refill [id number] Madyson Moore ma 1980 F Date Provider Department Center 05/09/2024 170-RUKHSANA MILLER MP PAIN Medical Pavi Family History Problem Relation Age of Onset Brain cancer Mother Breast cancer Sister Kidney cancer Maternal Grandmother Prostate cancer Paternal Grandfather Cancer Father Cancer Sister Family Status - Relation Status Age at Mother Sister Maternal Grandmother Paternal Grandfather Father Sister Reason for Visit and Comments: Med Refill [[id number]] Normal [facility] Refillon 04-07-2024 Refill [id number] Madyson Moore 1980 F Date Provider Department Center 04/07/2024 170-RUKHSANA MILLER MP PAIN Medical Pavi Family History Problem Relation Age of Onset Brain cancer Mother Breast cancer Sister Kidney cancer Maternal Grandmother Prostate cancer Paternal Grandfather Cancer Father Cancer Sister Family Status - Relation Status Age at Mother Sister Maternal Grandmother Paternal Grandfather Father Sister Reason for Visit and Comments: Med Refill [[id number]] Normal [facility] Nico 03-22-2024 L Specimen: BC Received: 03/23/24 Status: JOHNATHON Gomezq Num: [id number] Spec Type: Cytology Subm Dr: Carissa Pettit MD Tissues: A FNA SLIDES NOPATH (RT PAROTID MASS) Procedures: HE/2, p63, Cyto Int and Re, p40, PAPSTN/9 Age/ Patient Sex Location Account Attending Physician Elvi Moore L 43/F LABELL [id number] Carissa Pettit MD SPEC NUM: [id number] RECD: 03/23/24 STATUS: JOHNATHON AGUSTIN NUM: [id number] JHONATAN: 03/22/24- DR: Carissa Pettit MD ENTERED: 03/23/24-0 [facility] DR: Monique,Leann Acharya MD SPEC TYPE: Cytology DEPT: [facility] ENTERED BY: [id number] RECV BY: [id number] ORDERED: HE/2, p63, Cyto Int and Re, [...] deeper level of sections for IHC CPT: 54659, 27825 Addendum Signed (signature on file) Luis F [...] [id number] Received: 03/23/24 Status: JOHNATHON Agustin Num: [id number] Spec Type: Cytology Subm Dr: Carissa Pettit MD Tissues: A FNA SLIDES NOPATH (RT PAROTID MASS) Procedures: HE/2, p63, Cyto Int and Re, p40, PAPSTN/9 Patient: Elvi Moore [id number] (Continued) Specimen: [id number] Received: 03/23/24 (Continued) Pathological Diagnosis (Continued) Signed (signature on file) Luis F Roldan MD 03/29/24 1124 Specimen: [id number] Received: 03/23/24 Status: JOHNATHON Agustin Num: [id number] Spec Type: Cytology Subm Dr: Carissa Pettit MD Tissues: A FNA SLIDES NOPATH (RT PAROTID MASS) Procedures: HE/2, p63, Cyto Int and Re, p40, PAPSTN/9 Patient: TeresaElvi [id number] (Continued) Specimen: [id number] Received: 03/23/24-1407 (Continued) Pathological Diagnosis (Continued) ThinPrep smear, and is not contributory -There is also only very rare tiny small stromal fragments of scant cellularity in the cell block section, and is also not contributory for additional assessment -Overall findings is compatible with [place] system Category 4A: Benign neoplasm, encompassing pleomorphic adenoma Gross Description Received is <1 ml very pale pink fixed in Cytolyt fluid for cytology said to have been obtained as right parotid mass. 1 ThinPrep smear and cell block preparations are prepared for microscopic examination. Also received are 8 spray fixed smeared slides to be stained pap for microscopic examination.(/va) CPT Codes 13862 21853 Specimen: [id number] Received: 03/23/24 Status: JOHNATHON Agustin Num: [id number] Spec Type: Cytology Subm Dr: Carissa Pettit MD Tissues: A FNA SLIDES NOPATH (RT PAROTID MASS) Procedures: HE/2, p63, Cyto Int and Re, p40, PAPSTN/9 Patient: Elvi Moore [id number] (Continued) Signed (signature on file) Walker-Jj Roldan MD 03/29/24 1124 Normal [facility] Follow-Upon 03-17-2024 Follow-Up [id number] Madyson Moore ma 1980 F Date Provider Department Center 03/17/2024 170-RUKHSANA MILLER PAIN [facility] Family History Problem Relation Age of Onset Brain cancer Mother Breast cancer Sister Kidney cancer Maternal Grandmother Prostate cancer Paternal Grandfather Cancer Father Cancer Sister Family Status - Relation Status Age at Mother Sister Maternal Grandmother Paternal Grandfather Father Sister Level of Service:28740 [place] OFFICE/OUTPATIENT ESTABLISHED LOW MDM 20 MIN Reason for Visit and Comments: Knee Pain [[id number]] - Left knee pain Normal [facility] 03-08-2024 Screens [id number]#1.00TIFF Normal [facility] Patient Educationon 03-07-20 24 Patient Education [...] ? 8 oz (237 mL) of milk, vnoyvvr-vkqvqlqkcnpx-nnec y milk, and calcium-fortifiedfruit juice. Calcium-fortified means [...] Spinach (cooked), rhubarb, beets, sweet potatoes, and Sammarinese chard. ? Peanuts. ? Potato chips, malian fries, and baked potatoes with skin on. ? Nuts and nut products. ? Chocolate. ? If you regularly take a diuretic medicine, make sure to eat at least 1 or 2 servings of fruits or vegetables that are high in potassium each day. These include: ? Avocado. ? Banana. ? [place], prune, carrot, or tomato juice. ? Baked [...] fish oil, or vitamin B6. ? Take arod-pzy-zeijivr and prescription medicines only as told by your health care provider. These include supplements. What foods sh (more content not included)... [facility] 03-07-2024 [facility] [id number]#1.00TIFF [facility] Office/Clinic Noteon 03-07-2024 Urology Office/Clinic [...] 10/12/23. Stone analysis: 60% CaOx Di, 35% Mesa. 5% Phos Hydoxyl. KUB 03/03/24 [facility] - [...] Contact Information STEPH AVITIA, ELIZABETH Yi, URL [address] [facility] [place] [address] [phone] Additional Instructions: 1 yr w/ KUB Patient [...] 100 mg= 1 tab(s), Oral multivitamin, Daily [place] 325 mg-5 mg oral tablet, 1 tab(s), [...] virus vaccine, inactivated 07/29/2022 Recorded SARS-CoV-2 (COVID-19) [id number].[id number] 07/29/2022 Recorded SARS-CoV-2 (COVID-19) mRNA BNT-162b2 vax 10/08/2021 Recorded SARS-CoV-2 (COVID-19) mRNA BNT-162b2 vax 01/30/2021 Recorded SARS-CoV-2 (COVID-19) mRNA BNT-162b2 vax 01/09/2021 Recorded influenza virus vaccine, inactivated 07/11/2020 R (more content not included)... Normal [facility] Comment on above: Result Comment: Elec tronically Signed By: ELIZABETH VACA PA-C\.br\Date and Time Signed: 03/07/24 16:31 EDT\.br\Electronically Co-Signed By: Kandice Hardy\.br\Date and Time Co-Signed: 03/07/24 16:30 EDT CBC AND AUTO DIFFon 03-06-20 ABSOLUTE BASOPHIL 0.0 X10E9/L Normal 0.0-0.2 [facility] Comment on above: Performed By: #### C GALEN, CMP ####[facility] ([id number])[address] [place] [address] [place] [address] ABSOLUTE NEUTROPHIL 4.5 X10E9/L Normal 1.5-6.6 [facility] Comment on above: Performed By: #### C GALEN, CMP ####[facility] ([id number])[address] [place] [address]261 Basophils/100 WBC (Bld) 0.3 % Normal [facility] Comment on above: Performed By: #### C GALEN, CMP ####[facility] ([id number])[address] [place] [address]246 Eosinophils (Bld) [#/Vol] 0.0 10*3/uL Normal 0.0-0.4 [facility] Comment on above: Performed By: #### C GALEN, CMP ####[facility] ([id number])[address] [place] [address] 49266 Eosinophils/100 WBC (Bld) 0.6 % Normal [facility] Comment on above: Performed By: #### C GALEN, CMP ####[facility] ([id number])[address] [place] [address] [place] [address] Erythrocyte distribution width (RBC) [Ratio] 14.6 % Normal 11.5-15.0 [facility] Comment on above: Performed By: #### C GALEN, CMP ####[facility] ([id number])[address] [place] [address]1288 Hematocrit (Bld) [Volume fraction] 39.4 % Normal 35-47 [facility] Comment on above: Performed By: #### C BCA, CMP ####[facility] ([id number])[address] [place] [address] [place] [address] Hemoglobin (Bld) [Mass/Vol] 13.1 g/dL Normal 11.7-15.5 [facility] Comment on above: Performed By: #### C GALEN, CMP ####[facility] ([id number])[address] [place] [address] 78690 Lymphocytes (Bld) [#/Vol] 2.0 10*3/uL Normal 1.0-3.5 [facility] Comment on above: Performed By: #### C GALEN, CMP ####[facility] ([id number])[address] [place] [address] 87478 Lymphocytes/100 WBC (Bld) 28.1 % Normal [facility] Comment on above: Performed By: #### C GALEN, CMP ####[facility] ([id number])[address] [place] [address] 93899 MCH (RBC) [Entitic mass] 28.2 pg Normal 27-34 [facility] Comment on above: Performed By: #### C GALEN, CMP ####[facility] ([id number])[address] [place] [address] 44695 MCHC (RBC) [Mass/Vol] 33.2 g/dL Normal 32-36 [facility] Comment on above: Performed By: #### C GALEN, CMP ####[facility] ([id number])[address] [place] [address] 63708 MCV (RBC) [Entitic vol] 85 fL Normal 80-100 [facility] Comment on above: Performed By: #### C BCA, CMP ####[facility] ([id number])[address] [place] [address] 38976 Monocytes (Bld) [#/Vol] 0.6 10*3/uL Normal 0-0.9 [facility] Comment on above: Performed By: #### C BCA, CMP ####[facility] ([id number])[address] [place] [address], [place] [address] Monocytes/100 WBC (Bld) 8.3 % Normal [facility] Comment on above: Performed By: #### C GALEN, CMP ####[facility] ([id number])[address] [place] [address] 14679 Neutrophils/100 WBC (Bld) 62.7 % Normal [facility] Comment on above: Performed By: #### C GALEN, CMP ####[facility] ([id number])[address] [place] [address] 32384 Platelet mean volume (Bld) [Entitic vol] 8.3 fL Normal 7-12 [facility] Comment on above: Performed By: #### C GALEN, CMP ####[facility] ([id number])[address] [place] [address] 32115 Platelets (Bld) [#/Vol] 279 10*3/uL Normal 150-450 [facility] Comment on above: Performed By: #### C GALEN, CMP ####[facility] ([id number])[address] [place] [address] 87632 RBC COUNT 4.63 X10E12/L Normal 3.80-5.20 [facility] Comment on above: Performed By: #### C GALEN, CMP ####[facility] ([id number])[address] [place] [address] 09808 WBC (Bld) [#/Vol] 7.2 10*3/uL Normal 4.0-11.0 [facility] Comment on above: Performed By: #### C BCA, CMP ####[facility] ([id number])[address] [place] [address] [place] [address] COMPREHENSIVE METABOLIC PANE [facility] 03-06-2024 Albumin [Mass/Vol] 4.4 g/dL Normal 3.2-5.3 [facility] Comment on above: Performed By: #### C BCA, CMP ####[facility] ([id number])[address] [place] [address], [place] [address] ALP [Catalytic activity/Vol] 96 U/L Normal 39-130 [facility] Comment on above: Performed By: #### C BCA, CMP ####[facility] ([id number])[address] [place] [address], [place] [address] ALT [Catalytic activity/Vol] 16 U/L Normal 0-31 [facility] Comment on above: Performed By: #### C BCA, CMP ####[facility] ([id number])[address] [place] [address] 13709 Anion gap [Moles/Vol] 6 mmol/L Normal 5-15 [facility] Comment on above: Performed By: #### C BCA, CMP ####[facility] ([id number])[address] [place] [address] [place] [address] AST [Catalytic activity/Vol] 22 U/L Normal 0-41 [facility] Comment on above: Performed By: #### C BCA, CMP ####[facility] ([id number])[address] [place] [address] [place] [address] Bilirubin [Mass/Vol] 0.4 mg/dL Normal 0.3-1.2 [facility] Comment on above: Performed By: #### C BCA, CMP ####[facility] ([id number])[address] [place] [address], [place] [address] Calcium [Mass/Vol] 8.7 mg/dL Normal 8.5-10.5 [facility] Comment on above: Performed By: #### C BCA, CMP ####[facility] ([id number])[address] [place] [address] [place] [address] Chloride [Moles/Vol] 107 mmol/L Normal 98-109 [facility] Comment on above: Performed By: #### C BCA, CMP ####[facility] ([id number])[address] [place] [address] CO2 [Moles/Vol] 26 mmol/L Normal 22-32 [facility] Comment on above: Performed By: #### C BCA, CMP ####[facility] ([id number])[address] [place] [address] 54700 Creatinine [Mass/Vol] 0.64 mg/dL Normal 0.40-1.00 [facility] Comment on above: Result Comment: METH OD TRACEABLE TO IDMS STANDARD Performed By: #### C BCA, CMP ####[facility] ([id number])[address] [place] [address] 76462 eGFR (CKD-EPI) NON-RACE DEPENDENT >90 Normal >59 [facility] Comment on above: Result Comment: Reported eGFR is based on the CKD-EPI 2020 equation that does not use a race coefficient. Performed By: #### C BCA, CMP ####[facility] ([id number])[address] [place] [address] 87454 Glucose [Mass/Vol] 88 mg/dL Normal 65-99 [facility] Comment on above: Performed By: #### C BCA, CMP ####[facility] ([id number])[address] [place] [address] Potassium [Moles/Vol] 3.6 mmol/L Normal 3.5-5.0 [facility] Comment on above: Performed By: #### C BCA, CMP ####[facility] ([id number])[address] [place] [address] 20702 Protein [Mass/Vol] 8.0 g/dL Normal 6.0-8.0 [facility] Comment on above: Performed By: #### C BCA, CMP ####[facility] ([id number])[address] [place] [address] 88986 Sodium [Moles/Vol] 139 mmol/L Normal 134-146 [facility] Comment on above: Performed By: #### C BCA, CMP ####[facility] ([id number])[address] [place] [address] Urea nitrogen [Mass/Vol] 14 mg/dL Normal 5-23 [facility] Comment on above: Performed By: #### C BCA, CMP ####[facility] ([id number])[address] [place] [address] CT ABDOMEN AND PELVIS WO CON Ton [...] Schmidt MD on 03/06/2024 11:46 PM Normal [facility] URINE CULTUREon 03-06-2024 Bacteria identified Cx Nom (U) SPECIMEN NOTES URINE RECEIVED WITHOUT PRESERVATIVE CULTURE RESULTS 10-50,000 ORGANISMS/mL NORMAL UROGENITAL ALE Normal [facility] Comment on above: Performed By: #### 6 30-4 ####[facility] ([id number])[address] [address] URN MACROSCOPIC NURon 2023 BILIRUBIN JUNIOR Negative Normal NEG [facility] Comment on above: Performed By: #### N UM ####[facility] ([id number])[address] [place] [address], [place] [address] BLOOD/HGB JUNIOR Large Abnormal NEG [facility] Comment on above: Performed By: #### N UM ####[facility] ([id number])[address] [place] [address] [place] [address] GLUCOSE JUNIOR Negative Normal NEG [facility] Comment on above: Performed By: #### N UM ####[facility] ([id number])[address] [place] [address], [place] [address] KETONES JUNIOR Negative Normal NEG [facility] Comment on above: Performed By: #### N UM ####[facility] ([id number])[address] [place] [address] [place] [address] LEUKOCYTE ESTERASE JUNIOR Negative Normal NEG [facility] Comment on above: Performed By: #### N UM ####[facility] ([id number])[address] [place] [address] [place] [address] NITRITE JUNIOR Negative Normal NEG [facility] Comment on above: Performed By: #### N UM ####[facility] ([id number])[address] [place] [address] [place] [address] PH JUNIOR 7.0 Normal 5.0-8.5 [facility] Comment on above: Performed By: #### N UM ####[facility] ([id number])[address] [place] [address] 97424 PROTEIN JUNIOR 30 mg/dL Abnormal NEG [facility] Comment on above: Performed By: #### N UM ####[facility] ([id number])[address] [place] [address] [place] [address] SPECIFIC GRAVITY JUNIOR 1.025 Normal 1.003-1.035 [facility] Comment on above: Performed By: #### N UM ####[facility] ([id number])[address] [place] [address]89 UROBILINOGEN JUNIOR 1.0 eu/dL Normal <1.1 [facility] Comment on above: Performed By: #### N UM ####[facility] ([id number])[address] [place] [address] Lab Reportson 02-22-2024 Lab Reports [id number]#1.00TIFF Normal [facility] Lab Reportson 02-18-2024 Lab Reports [id number]#1.00TIFF Normal [facility] Reportson 02-17-2024 Lab Reports [id number]#1.00TIFF Normal [facility] 24 HR PHOSPHORUS,URINEon URINE PHOSPHORUS 0.8 g/24h Normal 0.4-1.3 [facility] Comment on above: Performed By: #### U PO4 ####[facility] ([id number])[address], [address] [place] [address]051 24 HR UR MAGNESIUMon 024 URINE MAGNESIUM 116 mg/24h Normal 72-182 [facility] Comment on above: Performed By: #### U CA, UCR, UMAG, ARABELLA, UUA ####[facility] ([id number])[address], [address] [place] [address]8715 24 HR URINE CALCIUMon 2023 URINE CALCIUM 134 mg/24h Normal 50-250 [facility] Comment on above: Performed By: #### U CA, UCR, UMAG, ARABELLA, UUA ####[facility] ([id number])[address], [address] [place] [address] 11981 24 HR URINE CREATININEon URINE CREATININE 0.88 g/24h Normal 0.80-1.80 [facility] Comment on above: Performed By: #### U CA, UCR, UMAG, ARABELLA, UUA ####[facility] ([id number])[address] [address] 24 HR URINE SODIUMon 024 URINE SODIUM 189 mmol/24h Normal 40-220 [facility] Comment on above: Performed By: #### U CA, UCR, UMAG, ARABELLA, UUA ####[facility] ([id number])[address], [address] [place] [address] 62783 24 HR URINE URIC ACIDon URINE URIC ACID 0.4 g/24h Normal 0.3-0.8 [facility] Comment on above: Performed By: #### U CA, UCR, UMAG, ARABELLA, UUA ####[facility] ([id number])[address], [address] [place] [address] 86519 BLOOD UREA NITROGENon 2023 Urea nitrogen [Mass/Vol] 9 mg/dL Normal 5-23 [facility] Comment on above: Performed By: #### C BCA, CMP #### [facility] ([id number]) [address] [place] [address] 64333 CALCIUMon 02-15-2024 Calcium [Mass/Vol] 9.0 mg/dL Normal 8.5-10.5 [facility] Comment on above: Performed By: #### C BCA, CMP #### [facility] ([id number]) [address] [place] [address] 36577 CARBON DIOXIDEon 02-15-2024 CO2 [Moles/Vol] 22 mmol/L Normal 22-32 [facility] Comment on above: Performed By: #### C BCA, CMP #### [facility] ([id number]) [address] [place] [address] 11886 CHLORIDEon 02-15-2024 Chloride [Moles/Vol] 111 mmol/L High 98-109 [facility] Comment on above: Performed By: #### C BCA, CMP #### [facility] ([id number]) [address] [place] [address] 28327 CITRIC ACID URINEon 02-15-20 24 CITRIC ACID,24H UR 550 mg/d Normal 320-1240 [facility] Comment on above: Performed By: #### 3 094-0, 04390-6, 0, 2028-06, WALLPAPER EMBOSSER HELPER, 2951- 2, 2777-1, 3084-1, 2731-8 ####[facility] ([id number])[address] [facility], [address] [place] [address] 79125#### CITACU ####[facility] ([id number])[address] [place] [address] 79218 CITRIC ACID,UR,VOL 611 mg/L Normal [facility] Comment on above: Performed By: #### 3 094-0, 36743-6, 0, 2028-06, WALLPAPER EMBOSSER HELPER, 2951- 2, 2777-1, 3084-1, 2731-8 ####[facility] ([id number])[address] [facility], [address] [place] [address] 22702#### CITACU ####[facility] ([id number])[address] [place] [address] 28270 CITRIC/CREAT RATIO 593 mg/g Normal >=150 [facility] Comment on above: Result Comment: NOTE INTERPRETIVE INFORMATION: Citric Acid, Urine This test was developed and its performance characteristics determined by [facility]. It has not been cleared or approved by the [place] Food and Drug Administration. This test was performed in a CLIA certified laboratory and is intended for clinical purposes. Performed By: [facility] [address] [place] [address] 86516 Hand Outside Cutter: Luca Mosquera MD, PhD [place] Number: [id number] Performed By: #### 3 094-0, 32852-0, , 2028-06, WALLPAPER EMBOSSER HELPER, 2951-2, 2777-1, 3084-1, 273-8 ####[facility] ([id number])[address], [address] [place] [address] 76688#### CITACU ####[facility] ([id number])[address] [place] [address] 21407 CREATININE,24H URINE 927 mg/d Normal 700-1600 [facility] Comment on above: Performed By: #### 3 094-0, 92910-2, , 2028-06, WALLPAPER EMBOSSER HELPER, 2951- 2, 2777-1, 3084-1, 273-8 ####[facility] ([id number])[address], [address] [place] [address] 25947#### CITACU ####[facility] ([id number])[address] [place] [address] 36933 CREATININE,UR,VOL 103 mg/dL Normal [facility] Comment on above: Performed By: #### 3 094-0, 09237-5, 0, 2028-06, WALLPAPER EMBOSSER HELPER, 2951- 2, 2777-1, 3084-1, 273-8 ####[facility] ([id number])[address], [address] [place] [address] 87110#### CITACU ####[facility] ([id number])[address] [place] [address] 44328 HOURS COLLECTED 24 Normal [facility] Comment on above: Performed By: #### 3 094-0, 45307-4, 0, 2028-06, WALLPAPER EMBOSSER HELPER, 2951- 2, 2777-1, 3084-1, 273-8 ####[facility] ([id number])[address] [facility], [address] [place] [address] 15992#### CITACU ####[facility] ([id number])[address] [place] [address] 61313 TOT VOLUME-24H URINE 900 Normal [facility] Comment on above: Performed By: #### 3 094-0, 07289-5, 2075-0, 2027-9, WALLPAPER EMBOSSER HELPER, 2951- 2, 2777-1, 3084-1, 273-8 ####[facility] ([id number])[address] [facility], [address] [place] [address] 08723#### CITACU ####[facility] ([id number])[address] [place] [address] 02133 CREATININEon 02-15-2024 Creatinine [Mass/Vol] 0.70 mg/dL Normal 0.40-1.00 [facility] Comment on above: Result Comment: METH OD TRACEABLE TO IDMS STANDARD Performed By: #### C BCA, CMP #### [facility] ([id number]) [address] [place] [address] 95383 eGFR (CKD-EPI) NON-RACE DEPENDENT >90 Normal >59 [facility] Comment on above: Result Comment: Reported eGFR is based on the CKD-EPI 2020 equation that does not use a race coefficient. Performed By: #### C BCA, CMP #### [facility] ([id number]) [address] [place] [address] 60809 OXALATE, TOTAL URINEon 02-14 CREATININE,24H URINE 945 mg/d Normal 700-1600 [facility] Comment on above: Result Comment: NOTE Performed By: [facility] [address] [place] [address] 98768 Hand Outside Cutter: Luca Mosquera MD, PhD CLIA Number: [id number] Performed By: #### O XALTU ####[facility] ([id number])[address] [place] [address] 34025 CREATININE,UR,VOL 105 mg/dL Normal [facility] Comment on above: Performed By: #### O FOREIGNU ####[facility] ([id number])[address] [place] [address] 15082 HOURS COLLECTED 24 Normal [facility] Comment on above: Performed By: #### O FOREIGNU ####[facility] ([id number])[address] [place] [address] 31835 OXALATE, PER VOLUME 32 mg/L Normal [facility] Comment on above: Performed By: #### O FOREIGNU ####[facility] ([id number])[address] [place] [address] 05449 OXALATE,URINE/24H 29 mg/d Normal 13-40 [facility] Comment on above: Result Comment: NOTE REFERENCE INTERVAL: Oxalate, Urine - per 24h Access complete set of age- and/or gender-specific reference intervals for this test in the [email or web address] [facility] Test Directory ([employer] This test was developed and its performance characteristics determined by [facility]. It has not been cleared or approved by the [place] Food and Drug Administration. This test was performed in a CLIA certified laboratory and is intended for clinical purposes. Performed By: #### O FOREIGNU ####[facility] ([id number])[address] [place] [address] 46530 TOT VOLUME-24H URINE 900 Normal [facility] Comment on above: Performed By: #### O XALTU ####[facility] ([id number])[address] [place] [address] 66935 PHOSPHORUSon 02-15-2024 Phosphate [Mass/Vol] 3.7 mg/dL Normal 2.4-4.9 [facility] Comment on above: Performed By: #### C BCA, CMP #### [facility] ([id number]) [address] [place] [address] 03892 Parathyrin.intact [Mass/Vol] on 02-15-2024 PTH INTACT 65 pg/mL Normal 12-88 [facility] Comment on above: Performed By: #### C BCA, CMP #### [facility] ([id number]) [address] [place] [address] 10932 SODIUMon 02-15-2024 Sodium [Moles/Vol] 141 mmol/L Normal 134-146 [facility] Comment on above: Performed By: #### C BCA, CMP #### [facility] ([id number]) [address] [place] [address] [id number] URIC ACIDon 02-15-2024 Urate [Mass/Vol] 3.6 mg/dL Normal 2.6-7.2 [facility] Comment on above: Performed By: #### C BCA, CMP #### [facility] ([id number]) [address] [place] [id number] URINE VOLUME AND TIMEon TIME 24 h Normal [facility] Comment on above: Performed By: #### C BCA, CMP #### [facility] ([id number]) [address] [place] [id number] TOTAL VOLUME 900 mL Normal [facility] Comment on above: Performed By: #### C BCA, CMP #### [facility] ([id number]) [address] [place] [address] 59701 TIME 24 h Normal [facility] Comment on above: Performed By: #### U PO4 ####[facility] ([id number])[address] [place] [address], [address] [address] Performed By: #### O XALTU ####[facility] ([id number])[address] [place] [address] [place] [address] Performed By: #### U CA, UCR, UMAG, ARABELLA, UUA ####[facility] ([id number])[address] [address] TOTAL VOLUME 900 mL Normal [facility] Comment on above: Performed By: #### U PO4 ####[facility] ([id number])[address] [facility], [address] [address] Performed By: #### O XALTU ####[facility] ([id number])[address] [place] [address] Performed By: #### U CA, UCR, UMAG, ARABELLA, UUA ####[facility] ([id number])[address], [address] [place] [address] 48005 Orders Onlyon 02-04-2024 Orders Only [id number] Madyson Moore 1980 F Date Provider Department Center 02/04/2024 RUKHSANA ESPINOZA MP PA[facility] Family History Problem Relation Age of Onset Brain cancer Mother Breast cancer Sister Kidney cancer Maternal Grandmother Prostate cancer Paternal Grandfather Cancer Father Cancer Sister Family Status - Relation Status Age at Mother Sister Maternal Grandmother Paternal Grandfather Father Sister Normal [facility] Orders Onlyon 01-19-2024 Orders Only [id number] Madyson Moore 1980 F Date Provider Department Center 01/19/2024 RKUHSANA ESPINOZA MP PAIN [facility] Family History Problem Relation Age of Onset Brain cancer Mother Breast cancer Sister Kidney cancer Maternal Grandmother Prostate cancer Paternal Grandfather Cancer Father Cancer Sister Family Status - Relation Status Age at Mother Sister Maternal Grandmother Paternal Grandfather Father Sister Normal [facility] 36on 01-06-2024 36 I called patient and left a voicemail and advice to be seen in ED. Normal [facility] XR ankle LT min 3V*on 2023 XR ankle LT min 3V* [facility] [address] [place] [address] XRay Report Signed Patient: Elvi Moore MR#: [id number] [id number] : 1980 Acct:[id number] Age/Sex: 43 / F ADM Date: 01/06/24 Loc: XDUCLY Room: Type: [facility] Attending Dr: Rianna Atnonio APRN Copies to: Rianna Antonio APRN Ordering [...] Solange Brown M.D.01/06/2024 6:47 PM Dictation Location: [place] [address] Transcribed By: [facility] 01/06/241846 Dictated By: Solange Brown MD 01/06/241845 Signed By: 01/06/241846 Normal [facility] Follow-Upon 12-24-2023 Follow-Up [id number] Madyson Moore 1980 F Date Provider Department Center 12/24/2023 170-RUKHSANA MILLER PAIN [facility] Family History Problem Relation Age of Onset Brain cancer Mother Breast cancer Sister Kidney cancer Maternal Grandmother Prostate cancer Paternal Grandfather Cancer Father Cancer Sister Family Status - Relation Status Age at Mother Sister Maternal Grandmother Paternal Grandfather Father Sister Level of Service:[address]555 [place] OFFICE/OUTPATIENT ESTABLISHED LOW MDM 20 MIN Reason for Visit and Comments: Follow-up [312229] - Chief complaint : L knee Normal [facility] CBC AND AUTO DIFFon 12-10-19 ABSOLUTE BASOPHIL 0.0 X10E9/L Normal 0.0-0.2 [facility] Comment on above: Performed By: #### C BCA, CMP #### [facility] ([id number]) [address] [place] [address] 01255 ABSOLUTE NEUTROPHIL 6.4 X10E9/L Normal 1.5-6.6 [facility] Comment on above: Performed By: #### C GALEN, CMP #### [facility] ([id number]) [address] [place] [address] 89146 Basophils/100 WBC (Bld) 0.3 % Normal [facility] Comment on above: Performed By: #### C GALEN, CMP #### [facility] ([id number]) [address] [place] [address] 61946 Eosinophils (Bld) [#/Vol] 0.0 10*3/uL Normal 0.0-0.4 [facility] Comment on above: Performed By: #### C GALEN, CMP #### [facility] ([id number]) [address] [place] [address] 77695 Eosinophils/100 WBC (Bld) 0.4 % Normal [facility] Comment on above: Performed By: #### C GALEN, CMP #### [facility] ([id number]) [address] [place] [address] 97618 Erythrocyte distribution width (RBC) [Ratio] 13.7 % Normal 11.5-15.0 [facility] Comment on above: Performed By: #### C GALEN, CMP #### [facility] ([id number]) [address] [place] [address] 48342 Hematocrit (Bld) [Volume fraction] 41.2 % Normal 35-47 [facility] Comment on above: Performed By: #### C GALEN, CMP #### [facility] ([id number]) [address] [place] [address] 10206 Hemoglobin (Bld) [Mass/Vol] 13.7 g/dL Normal 11.7-15.5 [facility] Comment on above: Performed By: #### C GALEN, CMP #### [facility] ([id number]) [address] [place] [address] 82966 Lymphocytes (Bld) [#/Vol] 2.8 10*3/uL Normal 1.0-3.5 [facility] Comment on above: Performed By: #### C BCA, CMP #### [facility] ([id number]) [address] [place] [address] 07629 Lymphocytes/100 WBC (Bld) 28.3 % Normal [facility] Comment on above: Performed By: #### C BCA, CMP #### [facility] ([id number]) [address] [place] [address] 01003 MCH (RBC) [Entitic mass] 29.8 pg Normal 27-34 [facility] Comment on above: Performed By: #### C BCA, CMP #### [facility] ([id number]) [address] [place] [address] 83873 MCHC (RBC) [Mass/Vol] 33.4 g/dL Normal 32-36 [facility] Comment on above: Performed By: #### C BCA, CMP #### [facility] ([id number]) [address] [place] [address] 32988 MCV (RBC) [Entitic vol] 89 fL Normal 80-100 [facility] Comment on above: Performed By: #### C BCA, CMP #### [facility] ([id number]) [address] [place] [address] 55699 Monocytes (Bld) [#/Vol] 0.6 10*3/uL Normal 0-0.9 [facility] Comment on above: Performed By: #### C BCA, CMP #### [facility] ([id number]) [address] [place] [address] 33583 Monocytes/100 WBC (Bld) 5.9 % Normal [facility] Comment on above: Performed By: #### C BCA, CMP #### [facility] ([id number]) [address] [place] [address] 12154 Neutrophils/100 WBC (Bld) 65.1 % Normal [facility] Comment on above: Performed By: #### C BCA, CMP #### [facility] ([id number]) [address] [place] [address] 46637 Platelet mean volume (Bld) [Entitic vol] 7.1 fL Normal 7-12 [facility] Comment on above: Performed By: #### C BCA, CMP #### [facility] ([id number]) [address] [place] [address] 71500 Platelets (Bld) [#/Vol] 329 10*3/uL Normal 150-450 [facility] Comment on above: Performed By: #### C BCA, CMP #### [facility] ([id number]) [address] [place] [address] 85948 RBC COUNT 4.60 X10E12/L Normal 3.80-5.20 [facility] Comment on above: Performed By: #### C BCA, CMP #### [facility] ([id number]) [address] [place] [address] 66380 WBC (Bld) [#/Vol] 9.8 10*3/uL Normal 4.0-11.0 [facility] Comment on above: Performed By: #### C BCA, CMP #### [facility] ([id number]) [address] [place] [address] 11208 COMPREHENSIVE METABOLIC PANE Nico 12-10-2023 Albumin [Mass/Vol] 4.6 g/dL Normal 3.2-5.3 [facility] Comment on above: Performed By: #### C BCA, CMP #### [facility] ([id number]) [address] [place] [address] 01269 ALP [Catalytic activity/Vol] 80 U/L Normal 39-130 [facility] Comment on above: Performed By: #### C BCA, CMP #### [facility] ([id number]) [address] [place] [address] 82257 ALT [Catalytic activity/Vol] 23 U/L Normal 0-31 [facility] Comment on above: Performed By: #### C BCA, CMP #### [facility] ([id number]) [address] [place] [address] 23619 Anion gap [Moles/Vol] 6 mmol/L Normal 5-15 [facility] Comment on above: Performed By: #### C BCA, CMP #### [facility] ([id number]) [address] [place] [address] 56333 AST [Catalytic activity/Vol] 20 U/L Normal 0-41 [facility] Comment on above: Performed By: #### C BCA, CMP #### [facility] ([id number]) [address] [place] [address] 84205 Bilirubin [Mass/Vol] 0.3 mg/dL Normal 0.3-1.2 [facility] Comment on above: Performed By: #### C BCA, CMP #### [facility] ([id number]) [address] [place] [address] 85191 Calcium [Mass/Vol] 8.5 mg/dL Normal 8.5-10.5 [facility] Comment on above: Performed By: #### C BCA, CMP #### [facility] ([id number]) [address] [place] [address] 70186 Chloride [Moles/Vol] 105 mmol/L Normal 98-109 [facility] Comment on above: Performed By: #### C BCA, CMP #### [facility] ([id number]) [address] [place] [address] [place] [address] CO2 [Moles/Vol] 27 mmol/L Normal 22-32 [facility] Comment on above: Performed By: #### C BCA, CMP #### [facility] ([id number]) [address] [place] [address] 67728 Creatinine [Mass/Vol] 0.59 mg/dL Normal 0.40-1.00 [facility] Comment on above: Result Comment: METH OD TRACEABLE TO IDMS STANDARD Performed By: #### C BCA, CMP #### [facility] ([id number]) [address] [place] [address] 34341 eGFR (CKD-EPI) NON-RACE DEPENDENT >90 Normal >59 [facility] Comment on above: Result Comment: Reported eGFR is based on the CKD-EPI 2020 equation that does not use a race coefficient. Performed By: #### C GALEN, CMP #### [facility] ([id number]) [address] [place] [address] 20163 Glucose [Mass/Vol] 100 mg/dL High 65-99 [facility] Comment on above: Performed By: #### C BCA, CMP #### [facility] ([id number]) [address] [place] [address] 97192 Potassium [Moles/Vol] 3.5 mmol/L Normal 3.5-5.0 [facility] Comment on above: Performed By: #### C BCA, CMP #### [facility] ([id number]) [address] [place] [address] 86375 Protein [Mass/Vol] 7.8 g/dL Normal 6.0-8.0 [facility] Comment on above: Performed By: #### C BCA, CMP #### [facility] ([id number]) [address] [place] [address] 92951 Sodium [Moles/Vol] 138 mmol/L Normal 134-146 [facility] Comment on above: Performed By: #### C BCA, CMP #### [facility] ([id number]) [address] [place] [address] Urea nitrogen [Mass/Vol] 19 mg/dL Normal 5-23 [facility] Comment on above: Performed By: #### C BCA, CMP #### [facility] ([id number]) [address] [place] [address] ABDOMEN AND PELVIS W CONT on [...] Gates MD on 12/10/2023 2:08 AM Normal [facility] HCG ( test) Ql (U)o n 12-10-2023 Beta HCG ( test) Ql (U) Negative Normal NEG [facility] Comment on above: Performed By: #### C GALEN, CMP #### [facility] ([id number]) [address] [place] [address] 22877 LIPASEon 12-10-2023 Lipase [Catalytic activity/Vol] 98 U/L High 17-40 [facility] Comment on above: Performed By: #### C GALEN, CMP #### [facility] ([id number]) [address] [place] [address] 76442 Lactate (P jaime) [Moles/Vol]o n 12-10-2023 LACTATE W/REFLEX 0.6 mmol/L Normal 0.4-2.0 [facility] Comment on above: Result Comment: Result did not trigger repeat Lactate, re-order if needed. Performed By: #### C GALEN, CMP #### [facility] ([id number]) [address] [place] [address] 78355 TROPONIN Ion 12-10-2023 Troponin I.cardiac [Mass/Vol] 0.02 ng/mL Normal 0.00-0.04 [facility] Comment on above: Performed By: #### C GALEN, CMP #### [facility] ([id number]) [address] [place] [address] 45157 URN MACROSCOPIC NURon 2023 BILIRUBIN JUNIOR Negative Normal NEG [facility] Comment on above: Performed By: #### C GALEN, CMP #### [facility] ([id number]) [address] [place] [address] 26970 BLOOD/HGB JUNIOR Large Abnormal NEG [facility] Comment on above: Performed By: #### C GALEN, CMP #### [facility] ([id number]) [address] [place] [address] 85328 GLUCOSE JUNIOR Negative Normal NEG [facility] Comment on above: Performed By: #### C BCA, CMP #### [facility] ([id number]) [address] [place] [address] 87105 KETONES JUNIOR Trace Abnormal NEG [facility] Comment on above: Performed By: #### C BCA, CMP #### [facility] ([id number]) [address] [place] [address] 29670 LEUKOCYTE ESTERASE JUNIOR Negative Normal NEG [facility] Comment on above: Performed By: #### C BCA, CMP #### [facility] ([id number]) [address] [place] [address] 42923 NITRITE JUNIOR Negative Normal NEG [facility] Comment on above: Performed By: #### C BCA, CMP #### [facility] ([id number]) [address] [place] [address] 54095 PH JUNIOR 6.0 Normal 5.0-8.5 [facility] Comment on above: Performed By: #### C BCA, CMP #### [facility] ([id number]) [address] [place] [address] 17912 PROTEIN JUNIOR Negative Normal NEG [facility] Comment on above: Performed By: #### C BCA, CMP #### [facility] ([id number]) [address] [place] [address] 65054 SPECIFIC GRAVITY JUNIOR >=1.030 Normal 1.003-1.035 [facility] Comment on above: Performed By: #### C BCA, CMP #### [facility] ([id number]) [address] [place] [address] 54563 UROBILINOGEN JUNIOR 0.2 eu/dL Normal <1.1 [facility] Comment on above: Performed By: #### C BCA, CMP #### [facility] ([id number]) [address] [place] [address] 52683 XR CHEST 1 VWon 12-10-2023 XR CHEST [...] Gates MD on 12/10/2023 1:59 AM Normal [facility] H. pylori Ag IA Ql (Stl)on 0 11-19-2023 H. PYLORI ANTG STOOL See Below Normal [facility] Comment on above: Result Comment: NOTE TEST RESULT FLAG UNIT REF.RANGE --- EIA Test See Below Negative for H. Pylori antigen by EIA H.PYLORI EIA RESULT Negative for Helicobacter pylori antigen by EIA SOURCE: STOOL Test Performed By: [facility] [employer] [address] [place] [address] Hand Outside Cutter: Anurag Seth III, M.D. CLIA #[id number] Performed By: #### C BCA, CMP #### [facility] ([id number]) [address] [place] [address] 67086 Gastrin [Mass/Vol]on 024 GASTRIN 62.9 pg/mL Normal <115.0 [facility] Comment on above: Result Comment: NOTE The Gastrin test was performed using the Siemens Immulite chemiluminescent immunometric method. Results obtained with different assay methods or kits cannot be used interchangeably. Test Performed By: [facility] [employer] [address] [place] [address] Hand Outside Cutter: Anurag Seth III, M.D. CLIA #[id number] Performed By: #### 2 333-3 #### [facility] ([id number]) [address] [place] [address] 24804 Transfer Inon 11-05-2023 Transfer In [id number] 83937 [id number] Normal [facility] BASIC METABOLIC PANLon 10-14 Anion gap [Moles/Vol] 10 mmol/L Normal 5-15 [facility] Comment on above: Performed By: #### B MP, LIVR, CBCA, 3040-3 #### [facility] ([id number]) [address] [place] [address] 20599 Calcium [Mass/Vol] 8.6 mg/dL Normal 8.5-10.5 [facility] Comment on above: Performed By: #### B MP, LIVR, CBCA, 3039-3 #### [facility] ([id number]) [address] [place] [address] 48143 Chloride [Moles/Vol] 100 mmol/L Normal 98-109 [facility] Comment on above: Performed By: #### B MP, LIVR, CBCA, 3039-3 #### [facility] ([id number]) [address] [place] [address] 11092 CO2 [Moles/Vol] 27 mmol/L Normal 22-32 [facility] Comment on above: Performed By: #### B MP, LIVR, CBCA, 3040-3 #### [facility] ([id number]) [address] [place] [address] 56278 Creatinine [Mass/Vol] 0.76 mg/dL Normal 0.40-1.00 [facility] Comment on above: Result Comment: METH OD TRACEABLE TO IDMS STANDARD Performed By: #### B MP, LIVR, CBCA, 0-3 #### [facility] ([id number]) [address] [place] [address] 56901 eGFR (CKD-EPI) NON-RACE DEPENDENT >90 Normal >59 [facility] Comment on above: Result Comment: Reported eGFR is based on the CKD-EPI 2020 equation that does not use a race coefficient. Performed By: #### B MP, LIVR, CBCA, 0-3 #### [facility] ([id number]) [address] [place] [address] 12263 Glucose [Mass/Vol] 84 mg/dL Normal 65-99 [facility] Comment on above: Performed By: #### B MP, LIVR, CBCA, 3040-3 #### [facility] ([id number]) [address] [place] [address] 35811 Potassium [Moles/Vol] 3.5 mmol/L Normal 3.5-5.0 [facility] Comment on above: Performed By: #### B MP, LIVR, CBCA, 0-3 #### [facility] ([id number]) [address] [place] [address] 71331 Sodium [Moles/Vol] 137 mmol/L Normal 134-146 [facility] Comment on above: Performed By: #### B MP, LIVR, CBCA, 3039-3 #### [facility] ([id number]) [address] [place] [address] 32733 Urea nitrogen [Mass/Vol] 16 mg/dL Normal 5-23 [facility] Comment on above: Performed By: #### B MP, LIVR, CBCA, 3039-3 #### [facility] ([id number]) [address] [place] [address] 26697 CBC AND AUTO DIFFon 10-14-19 24 ABSOLUTE BASOPHIL 0.0 X10E9/L Normal 0.0-0.2 [facility] Comment on above: Performed By: #### B MP, LIVR, CBCA, 3040-3 #### [facility] ([id number]) [address] [place] [address] 62808 ABSOLUTE NEUTROPHIL 3.6 X10E9/L Normal 1.5-6.6 [facility] Comment on above: Performed By: #### B MP, LIVR, CBCA, 0-3 #### [facility] ([id number]) [address] [place] [address] 08901 Basophils/100 WBC (Bld) 0.2 % Normal [facility] Comment on above: Performed By: #### B MP, LIVR, CBCA, 3 #### [facility] ([id number]) [address] [place] [address] 58546 Eosinophils (Bld) [#/Vol] 0.1 10*3/uL Normal 0.0-0.4 [facility] Comment on above: Performed By: #### B MP, LIVR, CBCA, 3039-12 #### [facility] ([id number]) [address] [place] [address] 91488 Eosinophils/100 WBC (Bld) 1.7 % Normal [facility] Comment on above: Performed By: #### B MP, LIVR, CBCA, 3039-12 #### [facility] ([id number]) [address] [place] [address] 47574 Erythrocyte distribution width (RBC) [Ratio] 14.0 % Normal 11.5-15.0 [facility] Comment on above: Performed By: #### B MP, LIVR, CBCA, 3039-12 #### [facility] ([id number]) [address] [place] [address] 86463 Hematocrit (Bld) [Volume fraction] 35.0 % Normal 35-47 [facility] Comment on above: Performed By: #### B MP, LIVR, CBCA, 3039-12 #### [facility] ([id number]) [address] [place] [address] 08697 Hemoglobin (Bld) [Mass/Vol] 11.8 g/dL Normal 11.7-15.5 [facility] Comment on above: Performed By: #### B MP, LIVR, CBCA, 3039-3 #### [facility] ([id number]) [address] [place] [address] 64437 Lymphocytes (Bld) [#/Vol] 3.0 10*3/uL Normal 1.0-3.5 [facility] Comment on above: Performed By: #### B MP, LIVR, CBCA, 3039-3 #### [facility] ([id number]) [address] [place] [address] 51743 Lymphocytes/100 WBC (Bld) 41.6 % Normal [facility] Comment on above: Performed By: #### B MP, LIVR, CBCA, 3039-12 #### [facility] ([id number]) [address] [place] [address] 44917 MCH (RBC) [Entitic mass] 29.6 pg Normal 27-34 [facility] Comment on above: Performed By: #### B MP, LIVR, CBCA, 3039-12 #### [facility] ([id number]) [address] [place] [address] 32746 MCHC (RBC) [Mass/Vol] 33.8 g/dL Normal 32-36 [facility] Comment on above: Performed By: #### B MP, LIVR, CBCA, 3039-12 #### [facility] ([id number]) [address] [place] [address] 66885 MCV (RBC) [Entitic vol] 88 fL Normal 80-100 [facility] Comment on above: Performed By: #### B MP, LIVR, CBCA, 3 #### [facility] ([id number]) [address] [place] [address] 68728 Monocytes (Bld) [#/Vol] 0.4 10*3/uL Normal 0-0.9 [facility] Comment on above: Performed By: #### B MP, LIVR, CBCA, 3 #### [facility] ([id number]) [address] [place] [address] 01292 Monocytes/100 WBC (Bld) 5.6 % Normal [facility] Comment on above: Performed By: #### B MP, LIVR, CBCA, 0-3 #### [facility] ([id number]) [address] [place] [address] 89017 Neutrophils/100 WBC (Bld) 50.9 % Normal [facility] Comment on above: Performed By: #### B MP, LIVR, CBCA, 3039-3 #### [facility] ([id number]) [address] [place] [address] 52284 Platelet mean volume (Bld) [Entitic vol] 7.5 fL Normal 7-12 [facility] Comment on above: Performed By: #### B MP, LIVR, CBCA, 3039-3 #### [facility] ([id number]) [address] [place] [address] 02820 Platelets (Bld) [#/Vol] 256 10*3/uL Normal 150-450 [facility] Comment on above: Performed By: #### B MP, LIVR, CBCA, 3039-3 #### [facility] ([id number]) [address] [place] [address] 60772 RBC COUNT 3.99 X10E12/L Normal 3.80-5.20 [facility] Comment on above: Performed By: #### B MP, LIVR, CBCA, 0-3 #### [facility] ([id number]) [address] [place] [address] 10459 WBC (Bld) [#/Vol] 7.1 10*3/uL Normal 4.0-11.0 [facility] Comment on above: Performed By: #### B MP, LIVR, CBCA, 0-3 #### [facility] ([id number]) [address] [place] [address] [place] [address] [address] ABDOMEN AND PELVIS W CONT on [...] Awad MD on 10/14/2023 12:24 AM Normal [facility] LIPASEon 10-14-2023 Lipase [Catalytic activity/Vol] 42 U/L High 17-40 [facility] Comment on above: Performed By: #### B MP, LIVR, CBCA, 3040-3 #### [facility] ([id number]) [address] [place] [address] 76896 LIVER PANELon 10-14-2023 Albumin [Mass/Vol] 4.1 g/dL Normal 3.2-5.3 [facility] Comment on above: Performed By: #### B MP, LIVR, CBCA, 3040-3 #### [facility] ([id number]) [address] [place] [address] [id number] ALP [Catalytic activity/Vol] 99 U/L Normal 39-130 [facility] Comment on above: Performed By: #### B MP, LIVR, CBCA, 3040-3 #### [facility] ([id number]) [address] [place] [address] [id number] ALT [Catalytic activity/Vol] 14 U/L Normal 0-31 [facility] Comment on above: Performed By: #### B MP, LIVR, CBCA, 3040-3 #### [facility] ([id number]) [address] [place] [address] [id number] AST [Catalytic activity/Vol] 20 U/L Normal 0-41 [facility] Comment on above: Performed By: #### B MP, LIVR, CBCA, 3040-3 #### [facility] ([id number]) [address] [place] [address] [id number] Bilirubin [Mass/Vol] 0.8 mg/dL Normal 0.3-1.2 [facility] Comment on above: Performed By: #### B MP, LIVR, CBCA, 3040-3 #### [facility] ([id number]) [address] [place] [address] 83689 Bilirubin.direct [Mass/Vol] 0.1 mg/dL Normal 0.0-0.4 [facility] Comment on above: Performed By: #### B MP, LIVR, CBCA, 3040-3 #### [facility] ([id number]) [address] [place] [address] 81353 Protein [Mass/Vol] 7.4 g/dL Normal 6.0-8.0 [facility] Comment on above: Performed By: #### B MP, LIVR, CBCA, 3040-3 #### [facility] ([id number]) [address] [place] [address] 20987 CBC AND AUTO DIFFon 10-13-19 24 ABSOLUTE BASOPHIL 0.0 X10E9/L Normal 0.0-0.2 [facility] Comment on above: Performed By: #### C GALEN, CMP #### [facility] ([id number]) [address] [place] [address] 53549 ABSOLUTE NEUTROPHIL 4.5 X10E9/L Normal 1.5-6.6 [facility] Comment on above: Performed By: #### C GALEN, CMP #### [facility] ([id number]) [address] [place] [address] 48757 Basophils/100 WBC (Bld) 0.2 % Normal [facility] Comment on above: Performed By: #### C GALEN, CMP #### [facility] ([id number]) [address] [place] [address] 21753 Eosinophils (Bld) [#/Vol] 0.1 10*3/uL Normal 0.0-0.4 [facility] Comment on above: Performed By: #### C BCA, CMP #### [facility] ([id number]) [address] [place] [address] 75444 Eosinophils/100 WBC (Bld) 1.1 % Normal [facility] Comment on above: Performed By: #### C BCA, CMP #### [facility] ([id number]) [address] [place] [address] 30342 Erythrocyte distribution width (RBC) [Ratio] 13.8 % Normal 11.5-15.0 [facility] Comment on above: Performed By: #### C BCA, CMP #### [facility] ([id number]) [address] [place] [address] 75695 Hematocrit (Bld) [Volume fraction] 36.9 % Normal 35-47 [facility] Comment on above: Performed By: #### C BCA, CMP #### [facility] ([id number]) [address] [place] [address] 44703 Hemoglobin (Bld) [Mass/Vol] 12.5 g/dL Normal 11.7-15.5 [facility] Comment on above: Performed By: #### C BCA, CMP #### [facility] ([id number]) [address] [place] [address] 26887 Lymphocytes (Bld) [#/Vol] 3.5 10*3/uL Normal 1.0-3.5 [facility] Comment on above: Performed By: #### C BCA, CMP #### [facility] ([id number]) [address] [place] [address] 48863 Lymphocytes/100 WBC (Bld) 40.4 % Normal [facility] Comment on above: Performed By: #### C BCA, CMP #### [facility] ([id number]) [address] [place] [address] 51887 MCH (RBC) [Entitic mass] 29.2 pg Normal 27-34 [facility] Comment on above: Performed By: #### C BCA, CMP #### [facility] ([id number]) [address] [place] [address] 55966 MCHC (RBC) [Mass/Vol] 33.8 g/dL Normal 32-36 [facility] Comment on above: Performed By: #### C BCA, CMP #### [facility] ([id number]) [address] [place] [address] [place] [address] MCV (RBC) [Entitic vol] 86 fL Normal 80-100 [facility] Comment on above: Performed By: #### C GALEN, CMP #### [facility] ([id number]) [address] [place] [address] 07782 Monocytes (Bld) [#/Vol] 0.5 10*3/uL Normal 0-0.9 [facility] Comment on above: Performed By: #### C GALEN, CMP #### [facility] ([id number]) [address] [place] [address] 64137 Monocytes/100 WBC (Bld) 6.2 % Normal [facility] Comment on above: Performed By: #### C GALEN, CMP #### [facility] ([id number]) [address] [place] [address] 51175 Neutrophils/100 WBC (Bld) 52.1 % Normal [facility] Comment on above: Performed By: #### C GALEN, CMP #### [facility] ([id number]) [address] [place] [address] 60834 Platelet mean volume (Bld) [Entitic vol] 7.8 fL Normal 7-12 [facility] Comment on above: Performed By: #### C GALEN, CMP #### [facility] ([id number]) [address] [place] [address] 83734 Platelets (Bld) [#/Vol] 293 10*3/uL Normal 150-450 [facility] Comment on above: Performed By: #### C GALEN, CMP #### [facility] ([id number]) [address] [place] [address] 90636 RBC COUNT 4.26 X10E12/L Normal 3.80-5.20 [facility] Comment on above: Performed By: #### C GALEN, CMP #### [facility] ([id number]) [address] [place] [address] 65752 WBC (Bld) [#/Vol] 8.7 10*3/uL Normal 4.0-11.0 [facility] Comment on above: Performed By: #### C BCA, CMP #### [facility] ([id number]) [address] [place] [address] 93997 COMPREHENSIVE METABOLIC PANE Nico 10-13-2023 Albumin [Mass/Vol] 4.4 g/dL Normal 3.2-5.3 [facility] Comment on above: Performed By: #### C BCA, CMP #### [facility] ([id number]) [address] [place] [address] 10230 ALP [Catalytic activity/Vol] 104 U/L Normal 39-130 [facility] Comment on above: Performed By: #### C BCA, CMP #### [facility] ([id number]) [address] [place] [address] 31088 ALT [Catalytic activity/Vol] 14 U/L Normal 0-31 [facility] Comment on above: Performed By: #### C BCA, CMP #### [facility] ([id number]) [address] [place] [address] 40279 Anion gap [Moles/Vol] 9 mmol/L Normal 5-15 [facility] Comment on above: Performed By: #### C BCA, CMP #### [facility] ([id number]) [address] [place] [address] 00564 AST [Catalytic activity/Vol] 18 U/L Normal 0-41 [facility] Comment on above: Performed By: #### C BCA, CMP #### [facility] ([id number]) [address] [place] [address] 21167 Bilirubin [Mass/Vol] 0.8 mg/dL Normal 0.3-1.2 [facility] Comment on above: Performed By: #### C BCA, CMP #### [facility] ([id number]) [address] [place] [address] 49909 Calcium [Mass/Vol] 9.0 mg/dL Normal 8.5-10.5 [facility] Comment on above: Performed By: #### C BCA, CMP #### [facility] ([id number]) [address] [place] [address] 32978 Chloride [Moles/Vol] 102 mmol/L Normal 98-109 [facility] Comment on above: Performed By: #### C BCA, CMP #### [facility] ([id number]) [address] [place] [address] 23802 CO2 [Moles/Vol] 28 mmol/L Normal 22-32 [facility] Comment on above: Performed By: #### C BCA, CMP #### [facility] ([id number]) [address] [place] [address] 84027 Creatinine [Mass/Vol] 0.74 mg/dL Normal 0.40-1.00 [facility] Comment on above: Result Comment: METH OD TRACEABLE TO IDMS STANDARD Performed By: #### C BCA, CMP #### [facility] ([id number]) [address] [place] [address] 51059 eGFR (CKD-EPI) NON-RACE DEPENDENT >90 Normal >59 [facility] Comment on above: Result Comment: Reported eGFR is based on the CKD-EPI 2021 equation that does not use a race coefficient. Performed By: #### C BCA, CMP #### [facility] ([id number]) [address] [place] [address] 98086 Glucose [Mass/Vol] 98 mg/dL Normal 65-99 [facility] Comment on above: Performed By: #### C BCA, CMP #### [facility] ([id number]) [address] [place] [address] 07754 Potassium [Moles/Vol] 3.7 mmol/L Normal 3.5-5.0 [facility] Comment on above: Performed By: #### C BCA, CMP #### [facility] ([id number]) [address] [place] [address] 69099 Protein [Mass/Vol] 7.9 g/dL Normal 6.0-8.0 [facility] Comment on above: Performed By: #### C BCA, CMP #### [facility] ([id number]) [address] [place] [address] 73902 Sodium [Moles/Vol] 139 mmol/L Normal 134-146 [facility] Comment on above: Performed By: #### C BCA, CMP #### [facility] ([id number]) [address] [place] [address] 40020 Urea nitrogen [Mass/Vol] 17 mg/dL Normal 5-23 [facility] Comment on above: Performed By: #### C BCA, CMP #### [facility] ([id number]) [address] [place] [address] ABDOMEN AND PELVIS WO CON Ton [...] Awad MD on 10/13/2023 11:00 PM Normal [facility] URN MACROSCOPIC NURon 2023 BILIRUBIN JUNIOR Negative Normal NEG [facility] Comment on above: Performed By: #### N UM #### [facility] ([id number]) [address] [place] [address] 55748 BLOOD/HGB JUNIOR Large Abnormal NEG [facility] Comment on above: Performed By: #### N UM #### [facility] ([id number]) [address] [place] [address] 36567 GLUCOSE JUNIOR Negative Normal NEG [facility] Comment on above: Performed By: #### N UM #### [facility] ([id number]) [address] [place] [address] 38859 KETONES JUNIOR Negative Normal NEG [facility] Comment on above: Performed By: #### N UM #### [facility] ([id number]) [address] [place] [address] 26344 LEUKOCYTE ESTERASE JUNIOR Trace Abnormal NEG [facility] Comment on above: Performed By: #### N UM #### [facility] ([id number]) [address] [place] [address] 78603 NITRITE JUNIOR Negative Normal NEG [facility] Comment on above: Performed By: #### N UM #### [facility] ([id number]) [address] [place] [address] 65819 PH JUNIOR 7.0 Normal 5.0-8.5 [facility] Comment on above: Performed By: #### N UM #### [facility] ([id number]) [address] [place] [address] 80627 PROTEIN JUNIOR Negative Normal NEG [facility] Comment on above: Performed By: #### N UM #### [facility] ([id number]) [address] [place] [address] 38137 SPECIFIC GRAVITY JUNIOR 1.025 Normal 1.003-1.035 [facility] Comment on above: Performed By: #### N UM #### [facility] ([id number]) [address] [place] [address] 22589 UROBILINOGEN JUNIOR 1.0 eu/dL Normal <1.1 [facility] Comment on above: Performed By: #### N UM #### [facility] ([id number]) [address] [place] [address] 79553 Ferritinon 05-28-2023 Ferritin [Mass/Vol] 4.9 ng/mL Low 11.0-306.8 [facility] Comment on above: Result Comment: PERF ORMED BY: [place] [address] PATHOLOGIST STORE CUSTODIAN MELISSA WAGNER M.D. Performed By: #### S CAN CBC, JANESSA, FE and TIBC #### [address] Iron and TIBC Profileon 05-11 % Iron Saturation 2.5 % Low 20-50 [facility] Comment on above: Performed By: #### S CAN CBC, JANESSA, FE and TIBC #### [address] Iron [Mass/Vol] 13 ug/dL Low 50-212 [facility] Comment on above: Performed By: #### S CAN CBC, JANESSA, FE and TIBC #### [address] Total Iron Binding Capacity 517 ug/dL High 255-450 [facility] Comment on above: Performed By: #### S CAN CBC, JANESSA, FE and TIBC #### [address] Transferrin [Mass/Vol] 369 mg/dL High 203-362 [facility] Comment on above: Performed By: #### S CAN CBC, JANESSA, FE and TIBC #### [address] Scan and CBCon 05-28-2023 Anisocytosis Ql (Bld) Marked Normal [facility] Comment on above: Performed By: #### S CAN CBC, JANESSA, FE and TIBC #### [address] Basophils (Bld) [#/Vol] 0.0 10*3/uL Normal 0.0-0.2 [facility] Comment on above: Performed By: #### S CAN CBC, JANESSA, FE and TIBC #### [address] Basophils/100 WBC (Bld) 0.3 % Normal . [facility] Comment on above: Performed By: #### S CAN CBC, JANESSA, FE and TIBC #### [address] Eosinophils (Bld) [#/Vol] 0.0 10*3/uL Normal 0.0-0.45 [facility] Comment on above: Performed By: #### S CAN CBC, JANESSA, FE and TIBC #### [address] Eosinophils/100 WBC (Bld) 0.6 % Normal . [facility] Comment on above: Performed By: #### S CAN CBC, JANESSA, FE and TIBC #### [address] Erythrocyte distribution width (RBC) [Ratio] 20.1 % High 11.9-15.3 [facility] Comment on above: Performed By: #### S CAN CBC, JANESSA, FE and TIBC #### [address] Hematocrit (Bld) [Volume fraction] 28.6 % Low 34.0-46.4 [facility] Comment on above: Performed By: #### S CAN CBC, JANESSA, FE and TIBC #### [address] Hemoglobin (Bld) [Mass/Vol] 8.9 g/dL Low 11.8-15.4 [facility] Comment on above: Performed By: #### S CAN CBC, JANESSA, FE and TIBC #### [address] Hypochromasia Moderate Normal [facility] Comment on above: Performed By: #### S CAN CBC, JANESSA, FE and TIBC #### [address] Lymphocytes (Bld) [#/Vol] 2.6 10*3/uL Normal 1.00-4.8 [facility] Comment on above: Performed By: #### S CAN CBC, JANESSA, FE and TIBC #### [address] Lymphocytes/100 WBC (Bld) 37.7 % Normal . [facility] Comment on above: Performed By: #### S CAN CBC, JANESSA, FE and TIBC #### [address] MCH (RBC) [Entitic mass] 20.5 pg Low 24.7-34.3 [facility] Comment on above: Performed By: #### S CAN CBC, JANESSA, FE and TIBC #### [address] MCV (RBC) [Entitic vol] 65.8 fL Low 80-100 [facility] Comment on above: Performed By: #### S CAN CBC, JANESSA, FE and TIBC #### [address] Mean Corpuscular HGB Conc 31.1 g/dL Low 32.0-35.0 [facility] Comment on above: Performed By: #### S CAN CBC, JANESSA, FE and TIBC #### [address] Microcytosis Marked Normal [facility] Comment on above: Performed By: #### S CAN CBC, JANESSA, FE and TIBC #### [address] Monocytes (Bld) [#/Vol] 0.4 10*3/uL Normal 0.0-0.8 [facility] Comment on above: Performed By: #### S CAN CBC, JANESSA, FE and TIBC #### [address] Monocytes/100 WBC (Bld) 6.3 % Normal . [facility] Comment on above: Performed By: #### S CAN CBC, JANESSA, FE and TIBC #### [address] Neutrophils (Bld) [#/Vol] 3.8 10*3/uL Normal 1.8-7.7 [facility] Comment on above: Performed By: #### S CAN CBC, JANESSA, FE and TIBC #### [address] Neutrophils/100 WBC (Bld) 55.1 % Normal . [facility] Comment on above: Performed By: #### S CAN CBC, JANESSA, FE and TIBC #### [address] NRBC% 0.1 /100{WBC} Normal 0-0.5 [facility] Comment on above: Performed By: #### S CAN CBC, JANESSA, FE and TIBC #### [address] Ovalocytes Slight Normal [facility] Comment on above: Performed By: #### S CAN CBC, JANESSA, FE and TIBC #### [address] Platelet Estimate Normal Normal Normal [facility] Comment on above: Performed By: #### S CAN CBC, JANESSA, FE and TIBC #### [address] Platelet mean volume (Bld) [Entitic vol] 8.7 fL Normal 6.3-10.7 [facility] Comment on above: Performed By: #### S CAN CBC, JANESSA, FE and TIBC #### [address] Platelet Morphology Normal Normal Normal [facility] Comment on above: Result Comment: PERF ORMED BY: [place] [address] PATHOLOGIST STORE CUSTODIAN MELISSA WAGNER M.D. Performed By: #### S CAN CBC, JANESSA, FE and TIBC #### [address] Platelets (Bld) [#/Vol] 218 10*3/uL Normal 150-450 [facility] Comment on above: Performed By: #### S CAN CBC, JANESSA, FE and TIBC #### [address] Poikilocytosis Slight Normal [facility] Comment on above: Performed By: #### S CAN CBC, JANESSA, FE and TIBC #### [address] RBC (Bld) [#/Vol] 4.34 10*6/uL Normal 3.60-5.00 [facility] Comment on above: Performed By: #### S CAN CBC, JANESSA, FE and TIBC #### [address] Schistocytes Slight Normal [facility] Comment on above: Performed By: #### S CAN CBC, JANESSA, FE and TIBC #### [facility] [address] WBC (Bld) [#/Vol] 6.9 10*3/uL Normal 3.8-11.6 [facility] Comment on above: Performed By: #### S CAN CBC, JANESSA, FE and TIBC #### [facility] [address] AMYLASEon 01-25-2023 Amylase [Catalytic activity/Vol] 64 U/L Normal 25-115 [facility] Comment on above: Performed By: #### B MP, LIPA, YVETTE, LIVER #### [facility] [address] [address] [address] Idania Roldan CBC AUTO DIFFon 01-25-2023 BASO # 0.0 103/ul Normal 0.0-0.1 [facility] Comment on above: Performed By: #### B MP, LIPA, YVETTE, LIVER #### [facility] [address] [address] [address] Idania Roldan Basophils/100 WBC (Bld) 0.3 % Normal 0.2-2.0 [facility] Comment on above: Performed By: #### B MP, LIPA, YVETTE, LIVER #### [facility] [address] [address] [address] Idania Roldan EO # 0.1 103/ul Normal 0.0-0.7 [facility] Comment on above: Performed By: #### B MP, LIPA, YVETTE, LIVER #### [facility] [address] [address] [address] Idania Roldan Eosinophils/100 WBC (Bld) 1.0 % Normal 0.9-7.0 [facility] Comment on above: Performed By: #### B MP, LIPA, YVETTE, LIVER #### [facility] [address] [address] [address] Idania Roldan Erythrocyte distribution width (RBC) [Ratio] 17.2 % Critically high 11.0-15.0 [facility] Comment on above: Performed By: #### B MP, LIPA, YVETTE, LIVER #### [facility] [address] [place] [address] Dr. Idania Roldan Hematocrit (Bld) [Volume fraction] 33.9 % Critically low 36.0-48.0 [facility] Comment on above: Performed By: #### B MP, LIPA, YVETTE, LIVER #### [facility] [address] [place] [address] Dr. Idania Roldan Hemoglobin (Bld) [Mass/Vol] 10.1 g/dL Critically low 12.0-16.0 [facility] Comment on above: Performed By: #### B MP, LIPA, YVETTE, LIVER #### [facility] [address] [place] [address] Dr. Idania Roldan IG # 0.01 10e3/ul Normal 0.00-0.03 [facility] Comment on above: Performed By: #### B MP, LIPA, YVETTE, LIVER #### [facility] [address] [place] [address] Dr. Idania Roldan IG % 0.2 % Normal 0.0-0.5 [facility] Comment on above: Performed By: #### B MP, LIPA, YVETTE, LIVER #### [facility] [address] [place] [address] Dr. Idania Roldan LYMPH # 1.7 103/ul Normal 1.2-3.8 [facility] Comment on above: Performed By: #### B MP, LIPA, YVETTE, LIVER #### [facility] [address] [place] [address] Dr. Idania Roldan Lymphocytes/100 WBC (Bld) 27.9 % Normal 20.5-60.0 [facility] Comment on above: Performed By: #### B MP, LIPA, YVETTE, LIVER #### [facility] [address] [place] [address] Dr. Idania Roldan MANUAL DIFF REQ NO Normal [facility] Comment on above: Performed By: #### B MP, LIPA, YVETTE, LIVER #### [facility] [address] [place] [address] Dr. Idania Roldan MCH (RBC) [Entitic mass] 20.7 pg Critically low 26.7-34.0 [facility] Comment on above: Performed By: #### B MP, LIPA, YVETTE, LIVER #### [facility] [address] [place] [address] Dr. Idania Roldan MCHC (RBC) [Mass/Vol] 29.8 g/dL Critically low 29.9-35.2 [facility] Comment on above: Performed By: #### B MP, LIPA, YVETTE, LIVER #### [facility] [address] [place] [address] Dr. Idania Roldan MCV (RBC) [Entitic vol] 69.6 fL Critically low 81.0-99.0 [facility] Comment on above: Performed By: #### B MP, LIPA, YVETTE, LIVER #### [facility] [address] [place] [address] Dr. Idania Roldan MONO # 0.4 103/ul Normal 0.3-0.8 [facility] Comment on above: Performed By: #### B MP, LIPA, YVETTE, LIVER #### [facility] [address] [place] [address] Dr. Idania Roldan Monocytes/100 WBC (Bld) 7.1 % Normal 1.7-12.0 [facility] Comment on above: Performed By: #### B MP, LIPA, YVETTE, LIVER #### [facility] [address] [place] [address] Dr. Idania Roldan NEUT # 3.8 103/ul Normal 1.4-6.5 [facility] Comment on above: Performed By: #### B MP, LIPA, YVETTE, LIVER #### [facility] [address] [place] [address] Dr. Idania Roldan Neutrophils/100 WBC (Bld) 63.5 % Normal 43.0-75.0 [facility] Comment on above: Performed By: #### B MP, LIPA, YVETTE, LIVER #### [facility] [address] [place] [address] Dr. Idania Roldan Platelet mean volume (Bld) [Entitic vol] 9.3 fL Critically low 9.5-13.5 [facility] Comment on above: Performed By: #### B MP, LIPA, YVETTE, LIVER #### [facility] [address] [address] [address] Idania Roldan PLT 294 103/ul Normal 150-450 [facility] Comment on above: Performed By: #### B MP, LIPA, YVETTE, LIVER #### [facility] [address] [address] [address] Idania Roldan RBC 4.87 106/ul Normal 4.20-5.40 [facility] Comment on above: Performed By: #### B MP, LIPA, YVETTE, LIVER #### [facility] [address] [address] [address] Idania Roldan WBC 6.0 103/ul Normal 4.0-11.0 [facility] Comment on above: Performed By: #### B MP, LIPA, YVETTE, LIVER #### [facility] [address] [address] ABD/PELVIS WO CONon [...] gastric bypass. Electronically authenticated by: VEDAJose L BOND Date: 2023-01-25 12:20 Normal [facility] ER URINE PROFILEon 3 Bilirubin Ql (U) SMALL Abnormal NEGATIVE [facility] Comment on above: Performed By: #### B MP, LIPA, YVETTE, LIVER #### [facility] [address] [address] [address] Idania Roldan Clarity (U) CLEAR Normal CLEAR [facility] Comment on above: Performed By: #### B MP, LIPA, YVETTE, LIVER #### [facility] [address] [address] [address] Idania Roldan Color (U) DK. YELLOW Normal YELLOW [facility] Comment on above: Performed By: #### B MP, LIPA, YVETTE, LIVER #### [facility] [address] [address] [address] Idania Roldan ERUAHD A micrscopic examina tion will be performed if indicated. Normal [facility] Comment on above: Performed By: #### B MP, LIPA, YVETTE, LIVER #### [facility] [address] [address] [address] Idania Roldan Glucose Ql (U) Negative Normal NEGATIVE [facility] Comment on above: Performed By: #### B MP, LIPA, YVETTE, LIVER #### [facility] [address] [address] [address] Idania Roldan Hemoglobin Ql (U) LARGE Abnormal NEGATIVE [facility] Comment on above: Performed By: #### B MP, LIPA, YVETTE, LIVER #### [facility] [address] [address] [address] Idania Roldan Ketones Ql (U) TRACE Abnormal NEGATIVE [facility] Comment on above: Performed By: #### B MP, LIPA, YVETTE, LIVER #### [facility] [address] [address] [address] Idania Roldan LEUKOCYTES Negative Normal NEGATIVE [facility] Comment on above: Performed By: #### B MP, LIPA, YVETTE, LIVER #### [facility] [address] [place] [address] Dr. Idania Roldan Nitrite Ql (U) Negative Normal NEGATIVE [facility] Comment on above: Performed By: #### B MP, LIPA, YVETTE, LIVER #### [facility] [address] [place] [address] Dr. Idania Roldan pH (U) 5.0 [pH] Normal 5-9 [facility] Comment on above: Performed By: #### B MP, LIPA, YVETTE, LIVER #### [facility] [address] [place] [address] Dr. Idania Roldan SPEC GRAVITY >=1.030 Abnormal 1.005-<=1.02 5 [facility] Comment on above: Performed By: #### B MP, LIPA, YVETTE, LIVER #### [facility] [address] [place] [address] Dr. Idania Roldan UA PROTEIN TRACE Normal NEGATIVE/ TRACE [facility] Comment on above: Performed By: #### B MP, LIPA, YVETTE, LIVER #### [facility] [address] [place] [address] Dr. Idania Roldan UR MICRO IND INDICATED Normal [facility] Comment on above: Performed By: #### B MP, LIPA, YVETTE, LIVER #### [facility] [address] [place] [address] Dr. Idania Roldan Urobilinogen Qn (U) 0.2 {Bryan'U}/dL Normal 0.2 - 1.0 [facility] Comment on above: Performed By: #### B MP, LIPA, YVETTE, LIVER #### [facility] [address] [place] [address] Dr. Idania Roldan LIPASEon 01-25-2023 Lipase [Catalytic activity/Vol] 226.0 U/L Normal 73.0-393.0 [facility] Comment on above: Performed By: #### B MP, LIPA, YVETTE, LIVER #### [facility] [address] [place] [address] Dr. Idania Roldan LIVER PROFILEon 01-25-2023 Albumin [Mass/Vol] 4.1 g/dL Normal 3.4-5.0 [facility] Comment on above: Performed By: #### B MP, LIPA, YVETTE, LIVER #### [facility] [address] [place] [address] Dr. Idania Roldan Albumin/Globulin [Mass ratio] 0.9 {ratio} Normal [facility] Comment on above: Performed By: #### B MP, LIPA, YVETTE, LIVER #### [facility] [address] [place] [address] Dr. Idania Roldan ALP [Catalytic activity/Vol] 110 U/L Normal 46-116 [facility] Comment on above: Performed By: #### B MP, LIPA, YVETTE, LIVER #### [facility] [address] [place] [address] Dr. Idania Roldan ALT [Catalytic activity/Vol] 20 U/L Normal 14-59 [facility] Comment on above: Performed By: #### B MP, LIPA, YVETTE, LIVER #### [facility] [address] [place] [address] Dr. Idania Roldan AST [Catalytic activity/Vol] 11 U/L Critically low 15-37 [facility] Comment on above: Performed By: #### B MP, LIPA, YVETTE, LIVER #### [facility] [address] [place] [address] Dr. Idania Roldan BILI, CONJUGATED 0.1 mg/dL Normal 0.0-0.2 [facility] Comment on above: Performed By: #### B MP, LIPA, YVETTE, LIVER #### [facility] [address] [place] [address] Dr. Idania Roldan Bilirubin [Mass/Vol] 0.3 mg/dL Normal 0.2-1.0 [facility] Comment on above: Performed By: #### B MP, LIPA, YVETTE, LIVER #### [facility] [address] [place] [address] Dr. Idania Roldan Globulin (S) [Mass/Vol] 4.4 g/dL Normal [facility] Comment on above: Performed By: #### B MP, LIPA, YVETTE, LIVER #### [facility] [address] [place] [address] Dr. Idania Roldan Protein [Mass/Vol] 8.5 g/dL Critically high 6.4-8.2 [facility] Comment on above: Performed By: #### B MP, LIPA, YVETTE, LIVER #### [facility] [address] [address] [address] Idania Roldan PROF CHEM 8 (BAS METB)on Anion gap [Moles/Vol] 13.5 mmol/L Normal [facility] Comment on above: Performed By: #### B MP, LIPA, YVETTE, LIVER #### [facility] [address] [place] [address] Dr. Idania Roldan Calcium [Mass/Vol] 9.3 mg/dL Normal 8.5-10.1 [facility] Comment on above: Performed By: #### B MP, LIPA, YVETTE, LIVER #### [facility] [address] [place] [address] Dr. Idania Roldan Chloride [Moles/Vol] 105 mmol/L Normal 98-107 [facility] Comment on above: Performed By: #### B MP, LIPA, YVETTE, LIVER #### [facility] [address] [place] [address] Dr. Idania Roldan CO2 [Moles/Vol] 27.2 mmol/L Normal 21.0-32.0 [facility] Comment on above: Performed By: #### B MP, LIPA, YVETTE, LIVER #### [facility] [address] [address] [address] Idania Roldan Creatinine [Mass/Vol] 0.74 mg/dL Normal 0.55-1.02 [facility] Comment on above: Performed By: #### B MP, LIPA, YVETTE, LIVER #### [facility] [address] [address] [address] Idania Roldan EGFR-AF CHADIAN >60 Normal >=[address] [facility] Comment on above: Performed By: #### B MP, LIPA, YVETTE, LIVER #### [facility] [address] [address] [address] Idania Roldan EGFR-NON AF CHADIAN >60 Normal >=60 [facility] Comment on above: Performed By: #### B MP, LIPA, YVETTE, LIVER #### [facility] [address] [address] [address] Idania Roldan Glucose [Mass/Vol] 97 mg/dL Normal 74-106 [facility] Comment on above: Performed By: #### B MP, LIPA, YVETTE, LIVER #### [facility] [address] [place] [address] Dr. Idania Roldan Potassium [Moles/Vol] 3.7 mmol/L Normal 3.5-5.1 [facility] Comment on above: Performed By: #### B MP, LIPA, YVETTE, LIVER #### [facility] [address] [place] [address] Dr. Idania Roldan Sodium [Moles/Vol] 142 mmol/L Normal 136-145 [facility] Comment on above: Performed By: #### B MP, LIPA, YVETTE, LIVER #### [facility] [address] [place] [address] Dr. Idania Roldan Urea nitrogen [Mass/Vol] 13.0 mg/dL Normal 7.0-18.0 [facility] Comment on above: Performed By: #### B MP, LIPA, YVETTE, LIVER #### [facility] [address] [place] [address] Dr. Idania Roldan Urea nitrogen/Creatinin e [Mass ratio] 17.6 mg/mg Normal [facility] Comment on above: Performed By: #### B MP, LIPA, YVETTE, LIVER #### [facility] [address] [place] [address] Dr. Idania Roldan URINE MICROSCOPIC ONLYon BACTERIA NONE SEEN Normal NONE SEEN [facility] Comment on above: Performed By: #### B MP, LIPA, YVETTE, LIVER #### [facility] [address] [place] [address] Dr. Idania Roldan Bacteria identified Cx Nom (U) NOT INDICATED Normal [facility] Comment on above: Performed By: #### B MP, LIPA, YVETTE, LIVER #### [facility] [address] [place] [address] Dr. Idania Roldan CAST NONE SEEN Normal NONE SEEN [facility] Comment on above: Performed By: #### B MP, LIPA, YVETTE, LIVER #### [facility] [address] [place] [address] Dr. Idania Roldan Crystals LM Nom (Urine sed) NONE SEEN Normal NONE SEEN [facility] Comment on above: Performed By: #### B MP, LIPA, YVETTE, LIVER #### [facility] [address] [place] [address] Dr. Idania Roldan Epithelial cells LM Ql (Urine sed) FEW Abnormal NONE SEEN /RARE [facility] Comment on above: Performed By: #### B MP, LIPA, YVETTE, LIVER #### [facility] [address] [place] [address] Dr. Idania Roldan MUCOUS NONE SEEN Normal NONE SEEN [facility] Comment on above: Performed By: #### B MP, LIPA, YVETTE, LIVER #### [facility] [address] [place] [address] Dr. Idania Roldan RBC (U) [#/Vol] /uL Abnormal 0-2 [facility] Comment on above: Performed By: #### B MP, LIPA, YVETTE, LIVER #### [facility] [address] [place] [address] Dr. Idania Roldan WBC NONE SEEN Normal NONE SEEN [facility] Comment on above: Performed By: #### B MP, LIPA, YVETTE, LIVER #### [facility] [address] [place] [address] Dr. Idania Roldan XR KUB 1 VIEWon [...] DENILSON AUSTIN Date: 2023-01-24 19:51 Normal [facility] AMYLASEon 01-21-2023 Amylase [Catalytic activity/Vol] 64 U/L Normal 25-115 [facility] Comment on above: Performed By: #### P T, PTT #### [facility] [address] [place] [address] Dr. Idania Roldan CBC AUTO DIFFon 01-21-2023 BASO # 0.0 103/ul Normal 0.0-0.1 [facility] Comment on above: Performed By: #### B MP, LIPA, YVETTE, LIVER #### [facility] [address] [place] [address] Dr. Idania Roldan Basophils/100 WBC (Bld) 0.2 % Normal 0.2-2.0 [facility] Comment on above: Performed By: #### B MP, LIPA, YVETTE, LIVER #### [facility] [address] [place] [address] Dr. Idania Roldan EO # 0.1 103/ul Normal 0.0-0.7 [facility] Comment on above: Performed By: #### B MP, LIPA, YVETTE, LIVER #### [facility] [address] [place] [address] Dr. Idania Roldan Eosinophils/100 WBC (Bld) 0.9 % Normal 0.9-7.0 [facility] Comment on above: Performed By: #### B MP, LIPA, YVETTE, LIVER #### [facility] [address] [place] [address] Dr. Idania Roldan Erythrocyte distribution width (RBC) [Ratio] 17.2 % Critically high 11.0-15.0 [facility] Comment on above: Performed By: #### B MP, LIPA, YVETTE, LIVER #### [facility] [address] [place] [address] Dr. Idania Roldan Hematocrit (Bld) [Volume fraction] 32.5 % Critically low 36.0-48.0 [facility] Comment on above: Performed By: #### B MP, LIPA, YVETTE, LIVER #### [facility] [address] [place] [address] Dr. Idania Roldan Hemoglobin (Bld) [Mass/Vol] 9.5 g/dL Critically low 12.0-16.0 [facility] Comment on above: Performed By: #### B MP, LIPA, YVETTE, LIVER #### [facility] [address] [place] [address] Dr. Idania Roldan IG # 0.01 10e3/ul Normal 0.00-0.03 [facility] Comment on above: Performed By: #### B MP, LIPA, YVETTE, LIVER #### [facility] [address] [place] [address] Dr. Idania Roldan IG % 0.2 % Normal 0.0-0.5 [facility] Comment on above: Performed By: #### B MP, LIPA, YVETTE, LIVER #### [facility] [address] [place] [address] Dr. Idania Roldan LYMPH # 2.0 103/ul Normal 1.2-3.8 [facility] Comment on above: Performed By: #### B MP, LIPA, YVETTE, LIVER #### [facility] [address] [place] [address] Dr. Idania Roldan Lymphocytes/100 WBC (Bld) 34.7 % Normal 20.5-60.0 [facility] Comment on above: Performed By: #### B MP, LIPA, YVETTE, LIVER #### [facility] [address] [place] [address] Dr. Idania Roldan MANUAL DIFF REQ NO Normal [facility] Comment on above: Performed By: #### B MP, LIPA, YVETTE, LIVER #### [facility] [address] [place] [address] Dr. Idania Roldan MCH (RBC) [Entitic mass] 20.5 pg Critically low 26.7-34.0 [facility] Comment on above: Performed By: #### B MP, LIPA, YVETTE, LIVER #### [facility] [address] [place] [address] Dr. Idania Roldan MCHC (RBC) [Mass/Vol] 29.2 g/dL Critically low 29.9-35.2 [facility] Comment on above: Performed By: #### B MP, LIPA, YVETTE, LIVER #### [facility] [address] [place] [address] Dr. Iadnia Roldan MCV (RBC) [Entitic vol] 70.2 fL Critically low 81.0-99.0 [facility] Comment on above: Performed By: #### B MP, LIPA, YVETTE, LIVER #### [facility] [address] [place] [address] Dr. Idania Roldan MONO # 0.5 103/ul Normal 0.3-0.8 [facility] Comment on above: Performed By: #### B MP, LIPA, YVETTE, LIVER #### [facility] [address] [place] [address] Dr. Idania Roldan Monocytes/100 WBC (Bld) 8.7 % Normal 1.7-12.0 [facility] Comment on above: Performed By: #### B MP, LIPA, YVETTE, LIVER #### [facility] [address] [place] [address] Dr. Idania Roldan NEUT # 3.2 103/ul Normal 1.4-6.5 [facility] Comment on above: Performed By: #### B MP, LIPA, YVETTE, LIVER #### [facility] [address] [place] [address] Dr. Idania Roldan Neutrophils/100 WBC (Bld) 55.3 % Normal 43.0-75.0 [facility] Comment on above: Performed By: #### B MP, LIPA, YVETTE, LIVER #### [facility] [address] [place] [address] Dr. Idania Roldan Platelet mean volume (Bld) [Entitic vol] 9.7 fL Normal 9.5-13.5 [facility] Comment on above: Performed By: #### B MP, LIPA, YVETTE, LIVER #### [facility] [address] [place] [address] Dr. Idania Roldan PLT 310 103/ul Normal 150-450 [facility] Comment on above: Performed By: #### B MP, LIPA, YVETTE, LIVER #### [facility] [address] [place] [address] Dr. Idania Roldan RBC 4.63 106/ul Normal 4.20-5.40 [facility] Comment on above: Performed By: #### B MP, LIPA, YVETTE, LIVER #### [facility] [address] [place] [address] Dr. Idania Roldan WBC 5.8 103/ul Normal 4.0-11.0 [facility] Comment on above: Performed By: #### B MP, LIPA, YVETTE, LIVER #### [facility] [address] [place] [address] Dr. Idania Roldan CULTURE URINEon 01-21-2023 CULTURE URINE Culture Observations : MODERATE GROWTH OF MIXED GENITAL ALE. NO POTENTIAL PATHOGENS SEEN. Normal [facility] Comment on above: Performed By: #### P T, PTT #### [facility] [address] [place] [address] Dr. Idania Roldan LIPASEon 01-21-2023 Lipase [Catalytic activity/Vol] 251.0 U/L Normal 73.0-393.0 [facility] Comment on above: Performed By: #### P T, PTT #### [facility] [address] [place] [address] Dr. Idania Roldan PROF 14(COMP METB)on 023 Albumin [Mass/Vol] 3.8 g/dL Normal 3.4-5.0 [facility] Comment on above: Performed By: #### P T, PTT #### [facility] [address] [place] [address] Dr. Idania Roldan Albumin/Globulin [Mass ratio] 1.0 {ratio} Normal [facility] Comment on above: Performed By: #### P T, PTT #### [facility] [address] [address] [address] Idania Roldan ALP [Catalytic activity/Vol] 107 U/L Normal 46-116 [facility] Comment on above: Performed By: #### P T, PTT #### [facility] [address] [address] [address] Idania Roldan ALT [Catalytic activity/Vol] 17 U/L Normal 14-59 [facility] Comment on above: Performed By: #### P T, PTT #### [facility] [address] [address] [address] Idania Roldan Anion gap [Moles/Vol] 13.3 mmol/L Normal [facility] Comment on above: Performed By: #### P T, PTT #### [facility] [address] [place] [address] Dr. Idania Roldan AST [Catalytic activity/Vol] 9 U/L Critically low 15-37 [facility] Comment on above: Performed By: #### P T, PTT #### [facility] [address] [place] [address] Dr. Idania Roldan Bilirubin [Mass/Vol] 0.3 mg/dL Normal 0.2-1.0 [facility] Comment on above: Performed By: #### P T, PTT #### [facility] [address] [place] [address] Dr. Idania Roldan Calcium [Mass/Vol] 9.0 mg/dL Normal 8.5-10.1 [facility] Comment on above: Performed By: #### P T, PTT #### [facility] [address] [address] [address] Idania Roldan Chloride [Moles/Vol] 103 mmol/L Normal 98-107 [facility] Comment on above: Performed By: #### P T, PTT #### [facility] [address] [address] [address] Idania Roldan CO2 [Moles/Vol] 28.2 mmol/L Normal 21.0-32.0 [facility] Comment on above: Performed By: #### P T, PTT #### [facility] [address] [address] [address] Idania Roldan Creatinine [Mass/Vol] 0.81 mg/dL Normal 0.55-1.02 [facility] Comment on above: Performed By: #### P T, PTT #### [facility] [address] [address] [address] Idania Roldan EGFR-AF CHADIAN >60 Normal >=[address] [facility] Comment on above: Performed By: #### P T, PTT #### [facility] [address] [address] [address] Idania Roldan EGFR-NON AF CHADIAN >60 Normal >=60 [facility] Comment on above: Performed By: #### P T, PTT #### [facility] [address] [place] [address] Dr. Idania Roldan Globulin (S) [Mass/Vol] 3.9 g/dL Normal [facility] Comment on above: Performed By: #### P T, PTT #### [facility] [address] [address] [address] Idania Roldan Glucose [Mass/Vol] 93 mg/dL Normal 74-106 [facility] Comment on above: Performed By: #### P T, PTT #### [facility] [address] [place] [address] Dr. Idania Roldan Potassium [Moles/Vol] 3.5 mmol/L Normal 3.5-5.1 [facility] Comment on above: Performed By: #### P T, PTT #### [facility] [address] [address] [address] Idania Roldan Protein [Mass/Vol] 7.7 g/dL Normal 6.4-8.2 [facility] Comment on above: Performed By: #### P T, PTT #### [facility] [address] [place] [address] Dr. Idania Roldan Sodium [Moles/Vol] 141 mmol/L Normal 136-145 [facility] Comment on above: Performed By: #### P T, PTT #### [facility] [address] [place] [address] Dr. Idania Roldan Urea nitrogen [Mass/Vol] 11.0 mg/dL Normal 7.0-18.0 [facility] Comment on above: Performed By: #### P T, PTT #### [facility] [address] [place] [address] Dr. Idania Roldan Urea nitrogen/Creatinin e [Mass ratio] 13.6 mg/mg Normal [facility] Comment on above: Performed By: #### P T, PTT #### [facility] [address] [place] [address] Dr. Idania Roldan UA RANDOM W/MICROSCOPICon BACTERIA SMALL Abnormal NONE SEEN [facility] Comment on above: Performed By: #### B MP, LIPA, YVETTE, LIVER #### [facility] [address] [place] [address] Dr. Idania Roldan Bilirubin Ql (U) SMALL Abnormal NEGATIVE [facility] Comment on above: Performed By: #### B MP, LIPA, YVETTE, LIVER #### [facility] [address] [place] [address] Dr. Idania Roldan CAST NONE SEEN Normal NONE SEEN [facility] Comment on above: Performed By: #### B MP, LIPA, YVETTE, LIVER #### [facility] [address] [place] [address] Dr. Idania Roldan Clarity (U) CLEAR Normal CLEAR [facility] Comment on above: Performed By: #### B MP, LIPA, YVETTE, LIVER #### [facility] [address] [place] [address] Dr. Idania Roldan Color (U) DK. YELLOW Normal YELLOW [facility] Comment on above: Performed By: #### B MP, LIPA, YVETTE, LIVER #### [facility] [address] [place] [address] Dr. Idania Roldan Crystals LM Nom (Urine sed) NONE SEEN Normal NONE SEEN [facility] Comment on above: Performed By: #### B MP, LIPA, YVETTE, LIVER #### [facility] [address] [place] [address] Dr. Idania Roldan Epithelial cells LM Ql (Urine sed) FEW Abnormal NONE SEEN /RARE [facility] Comment on above: Performed By: #### B MP, LIPA, YVETTE, LIVER #### [facility] [address] [address] [address] Idania Roldan Glucose Ql (U) Negative Normal NEGATIVE [facility] Comment on above: Performed By: #### B MP, LIPA, YVETTE, LIVER #### [facility] [address] [address] [address] Idania Roldan Hemoglobin Ql (U) LARGE Abnormal NEGATIVE [facility] Comment on above: Performed By: #### B MP, LIPA, YVETTE, LIVER #### [facility] [address] [address] [address] Idania Roldan Ketones Ql (U) TRACE Abnormal NEGATIVE [facility] Comment on above: Performed By: #### B MP, LIPA, YVETTE, LIVER #### [facility] [address] [address] [address] Idania Roldan LEUKOCYTES Negative Normal NEGATIVE [facility] Comment on above: Performed By: #### B MP, LIPA, YVETTE, LIVER #### [facility] [address] [address] [address] Idania Roldan MUCOUS MODERATE Abnormal NONE SEEN [facility] Comment on above: Performed By: #### B MP, LIPA, YVETTE, LIVER #### [facility] [address] [address] [address] Idania Roldan Nitrite Ql (U) Negative Normal NEGATIVE [facility] Comment on above: Performed By: #### B MP, LIPA, YVETTE, LIVER #### [facility] [address] [address] [address] Idania Roldan pH (U) 5.0 [pH] Normal 5-9 [facility] Comment on above: Performed By: #### B MP, LIPA, YVETTE, LIVER #### [facility] [address] [address] [address] Idania Roldan RBC (U) [#/Vol] /uL Abnormal 0-2 [facility] Comment on above: Performed By: #### B MP, LIPA, YVETTE, LIVER #### [facility] [address] [address] [address] Idania Roldan SPEC GRAVITY >=1.030 Abnormal 1.005-<=1.02 5 [facility] Comment on above: Performed By: #### B MP, LIPA, YVETTE, LIVER #### [facility] [address] [place] [address] Dr. Idania Roldan UA PROTEIN TRACE Normal NEGATIVE/ TRACE [facility] Comment on above: Performed By: #### B MP, LIPA, YVETTE, LIVER #### [facility] [address] [address] [address] Idania Roldan Urobilinogen Qn (U) 0.2 {Bryan'U}/dL Normal 0.2 - 1.0 [facility] Comment on above: Performed By: #### B MP, LIPA, YVETTE, LIVER #### [facility] [address] [address] [address] Idania Roldan WBC 0-2 Abnormal NONE SEEN [facility] Comment on above: Performed By: #### B MP, LIPA, YVETTE, LIVER #### [facility] [address] [place] [address] Dr. Idania Roldan Covid-19 PCR ([facility])on 09-11 SARS-CoV-2 (COVID-19) RNA MAMIE+probe Ql (Unsp spec) Detected Critically abnormal NOT DETECTED [facility] Comment on above: Result Comment: This test is not yet approved or cleared by the [place] FDA. When there are no FDA-approved or cleared tests available, and other criteria are met, FDA can make tests available under an emergency access mechanism called an Emergency Use Authorization (EUA). The EUA for this test is supported by the [place] of Health and Human Service's (HHS's) declaration [...] used). Performed By: #### C VDTBH #### [facility] [address] [place] [address] Dr. Idania Roldan INFLUENZA A AND B AGon 10-06 INFLUANE SEE BELOW Normal [facility] Comment on above: Result Comment: Nega tive for Flu A protein angiten. Infection due to Flu A cannot be ruled out. Flu A angiten in the sample may be below the detection limit of the test. Performed By: #### P T, PTT #### [facility] [address] [place] [address] Dr. Idania Roldan INFLUBNEG SEE BELOW Normal [facility] Comment on above: Result Comment: Nega tive for Flu B protein antigen. Infection due to Flu B cannot be ruled out. Flu B antigen in the sample may be below the detection limit of the test. Performed By: #### P T, PTT #### [facility] [address] [place] [address] Dr. Idania Roldan INFLUENZA A AG Negative Normal NEGATIVE SEE COMMENT [facility] Comment on above: Performed By: #### P T, PTT #### [facility] [address] [place] [address] Dr. Idania Roldan INFLUENZA B AG Negative Normal NEGATIVE SEE COMMENT [facility] Comment on above: Performed By: #### P T, PTT #### [facility] [address] [place] [address] Dr. Idania Roldan INTERNAL CONTROLS Within Normal Limits Normal Wi thin Normal Limits [facility] Comment on above: Performed By: #### P T, PTT #### [facility] [address] [place] [address] Dr. Idania Roldan AMYLASEon 09-30-2022 Amylase [Catalytic activity/Vol] 62 U/L Normal 25-115 [facility] Comment on above: Performed By: #### B MP, LIPA, YVETTE, LIVER #### [facility] [address] [place] [address] Dr. Idania Roldan CBC AUTO DIFFon 09-30-2022 BASO # 0.0 103/ul Normal 0.0-0.1 [facility] Comment on above: Performed By: #### C BC #### [facility] [address] [place] [address] Dr. Idania Roldan Basophils/100 WBC (Bld) 0.3 % Normal 0.2-2.0 [facility] Comment on above: Performed By: #### C BC #### [facility] [address] [place] [address] Dr. Idania Roldan EO # 0.1 103/ul Normal 0.0-0.7 [facility] Comment on above: Performed By: #### C BC #### [facility] [address] [place] [address] Dr. Idania Roldan Eosinophils/100 WBC (Bld) 1.2 % Normal 0.9-7.0 [facility] Comment on above: Performed By: #### C BC #### [facility] [address] [place] [address] Dr. Idania Roldan Erythrocyte distribution width (RBC) [Ratio] 14.8 % Normal 11.0-15.0 [facility] Comment on above: Performed By: #### C BC #### [facility] [address] [place] [address] Dr. Idania Roldan Hematocrit (Bld) [Volume fraction] 31.8 % Critically low 36.0-48.0 [facility] Comment on above: Performed By: #### C BC #### [facility] [address] [place] [address] Dr. Idania Roldan Hemoglobin (Bld) [Mass/Vol] 9.6 g/dL Critically low 12.0-16.0 [facility] Comment on above: Performed By: #### C BC #### [facility] [address] [place] [address] Dr. Idania Roldan IG # 0.01 10e3/ul Normal 0.00-0.03 [facility] Comment on above: Performed By: #### C BC #### [facility] [address] [place] [address] Dr. Idania Roldan IG % 0.1 % Normal 0.0-0.5 [facility] Comment on above: Performed By: #### C BC #### [facility] [address] [place] [address] Dr. Idania Roldan LYMPH # 3.3 103/ul Normal 1.2-3.8 [facility] Comment on above: Performed By: #### C BC #### [facility] [address] [place] [address] Dr. Idania Roldan Lymphocytes/100 WBC (Bld) 45.4 % Normal 20.5-60.0 [facility] Comment on above: Performed By: #### C BC #### [facility] [address] [place] [address] Dr. Idania Roldan MANUAL DIFF REQ NO Normal [facility] Comment on above: Performed By: #### C BC #### [facility] [address] [place] [address] Dr. Idania Roldan MCH (RBC) [Entitic mass] 22.7 pg Critically low 26.7-34.0 [facility] Comment on above: Performed By: #### C BC #### [facility] [address] [place] [address] Dr. Idania Roldan MCHC (RBC) [Mass/Vol] 30.2 g/dL Normal 29.9-35.2 [facility] Comment on above: Performed By: #### C BC #### [facility] [address] [place] [address] Dr. Idania Roldan MCV (RBC) [Entitic vol] 75.4 fL Critically low 81.0-99.0 [facility] Comment on above: Performed By: #### C BC #### [facility] [address] [place] [address] Dr. Idania Roldan MONO # 0.5 103/ul Normal 0.3-0.8 [facility] Comment on above: Performed By: #### C BC #### [facility] [address] [place] [address] Dr. Idania Roldan Monocytes/100 WBC (Bld) 6.2 % Normal 1.7-12.0 [facility] Comment on above: Performed By: #### C BC #### [facility] [address] [place] [address] Dr. Idania Roldan NEUT # 3.4 103/ul Normal 1.4-6.5 [facility] Comment on above: Performed By: #### C BC #### [facility] [address] [place] [address] Dr. Idania Roldan Neutrophils/100 WBC (Bld) 46.8 % Normal 43.0-75.0 [facility] Comment on above: Performed By: #### C BC #### [facility] [address] [place] [address] Dr. Idania Roldan Platelet mean volume (Bld) [Entitic vol] 8.5 fL Critically low 9.5-13.5 [facility] Comment on above: Performed By: #### C BC #### [facility] [address] [place] [address] Dr. Idania Roldan PLT 273 103/ul Normal 150-450 [facility] Comment on above: Performed By: #### C BC #### [facility] [address] [place] [address] Dr. Idania Roldan RBC 4.22 106/ul Normal 4.20-5.40 [facility] Comment on above: Performed By: #### C BC #### [facility] [address] [place] [address] Dr. Idania Roldan WBC 7.2 103/ul Normal 4.0-11.0 [facility] Comment on above: Performed By: #### C BC #### [facility] [address] [place] [address] Dr. Idania Roldan CULTURE URINEon 09-30-2022 CULTURE URINE Culture Observations : MODERATE GROWTH OF MIXED GENITAL ALE. NO POTENTIAL PATHOGENS SEEN. Normal [facility] Comment on above: Performed By: #### P T, PTT #### [facility] [address] [place] [address] Dr. Idania Roldan LIPASEon 09-30-2022 Lipase [Catalytic activity/Vol] 256.0 U/L Normal 73.0-393.0 [facility] Comment on above: Performed By: #### B MP, LIPA, YVETTE, LIVER #### [facility] [address] [place] [address] Dr. Idania Roldan PROF 14(COMP METB)on 022 Albumin [Mass/Vol] 4.1 g/dL Normal 3.4-5.0 [facility] Comment on above: Performed By: #### B MP, LIPA, YVETTE, LIVER #### [facility] [address] [place] [address] Dr. Idania Roldan Albumin/Globulin [Mass ratio] 1.0 {ratio} Normal [facility] Comment on above: Performed By: #### B MP, LIPA, YVETTE, LIVER #### [facility] [address] [place] [address] Dr. Idania Roldan ALP [Catalytic activity/Vol] 93 U/L Normal 46-116 [facility] Comment on above: Performed By: #### B MP, LIPA, YVETTE, LIVER #### [facility] [address] [place] [address] Dr. Idania Roldan ALT [Catalytic activity/Vol] 13 U/L Critically low 14-59 [facility] Comment on above: Performed By: #### B MP, LIPA, YVETTE, LIVER #### [facility] [address] [place] [address] Dr. Idania Roldan Anion gap [Moles/Vol] 9.8 mmol/L Normal [facility] Comment on above: Performed By: #### B MP, LIPA, YVETTE, LIVER #### [facility] [address] [place] [address] Dr. Idania Roldan AST [Catalytic activity/Vol] 12 U/L Critically low 15-37 [facility] Comment on above: Performed By: #### B MP, LIPA, YVETTE, LIVER #### [facility] [address] [place] [address] Dr. Idania Roldan Bilirubin [Mass/Vol] 0.2 mg/dL Normal 0.2-1.0 [facility] Comment on above: Performed By: #### B MP, LIPA, YVETTE, LIVER #### [facility] [address] [place] [address] Dr. Idania Roldan Calcium [Mass/Vol] 9.2 mg/dL Normal 8.5-10.1 [facility] Comment on above: Performed By: #### B MP, LIPA, YVETTE, LIVER #### [facility] [address] [place] [address] Dr. Idania Roldan Chloride [Moles/Vol] 101 mmol/L Normal 98-107 [facility] Comment on above: Performed By: #### B MP, LIPA, YVETTE, LIVER #### [facility] [address] [place] [address] Dr. Idania Roldan CO2 [Moles/Vol] 31.8 mmol/L Normal 21.0-32.0 [facility] Comment on above: Performed By: #### B MP, LIPA, YVETTE, LIVER #### [facility] [address] [place] [address] Dr. Idania Roldan Creatinine [Mass/Vol] 0.71 mg/dL Normal 0.55-1.02 [facility] Comment on above: Performed By: #### B MP, LIPA, YVETTE, LIVER #### [facility] [address] [place] [address] Dr. Idania Roldan EGFR-AF CHADIAN >60 Normal >=60 [facility] Comment on above: Performed By: #### B MP, LIPA, YVETTE, LIVER #### [facility] [address] [place] [address] Dr. Idania Roldan EGFR-NON AF CHADIAN >60 Normal >=60 [facility] Comment on above: Performed By: #### B MP, LIPA, YVETTE, LIVER #### [facility] [address] [place] [address] Dr. Idania Roldan Globulin (S) [Mass/Vol] 4.0 g/dL Normal [facility] Comment on above: Performed By: #### B MP, LIPA, YVETTE, LIVER #### [facility] [address] [place] [address] Dr. Idania Roldan Glucose [Mass/Vol] 92 mg/dL Normal 74-106 [facility] Comment on above: Performed By: #### B MP, LIPA, YVETTE, LIVER #### [facility] [address] [place] [address] Dr. Idania Roldan Potassium [Moles/Vol] 3.6 mmol/L Normal 3.5-5.1 [facility] Comment on above: Performed By: #### B MP, LIPA, YVETTE, LIVER #### [facility] [address] [place] [address] Dr. Idania Roldan Protein [Mass/Vol] 8.1 g/dL Normal 6.4-8.2 [facility] Comment on above: Performed By: #### B MP, LIPA, YVETTE, LIVER #### [facility] [address] [place] [address] Dr. Idania Roldan Sodium [Moles/Vol] 139 mmol/L Normal 136-145 [facility] Comment on above: Performed By: #### B MP, LIPA, YVETTE, LIVER #### [facility] [address] [place] [address] Dr. Idania Roldan Urea nitrogen [Mass/Vol] 15.0 mg/dL Normal 7.0-18.0 [facility] Comment on above: Performed By: #### B MP, LIPA, YVETTE, LIVER #### [facility] [address] [place] [address] Dr. Idania Roldan Urea nitrogen/Creatinin e [Mass ratio] 21.1 mg/mg Normal [facility] Comment on above: Performed By: #### B MP, LIPA, YVETTE, LIVER #### [facility] [address] [place] [address] Dr. Idania Roldan UA RANDOM W/MICROSCOPICon BACTERIA SMALL Abnormal NONE SEEN [facility] Comment on above: Performed By: #### B MP, LIPA, YVETTE, LIVER #### [facility] [address] [place] [address] Dr. Idania Roldan Bilirubin Ql (U) Negative Normal NEGATIVE [facility] Comment on above: Performed By: #### B MP, LIPA, YVETTE, LIVER #### [facility] [address] [address] [address] Idania Roldan CAST NONE SEEN Normal NONE SEEN [facility] Comment on above: Performed By: #### B MP, LIPA, YVETTE, LIVER #### [facility] [address] [address] [address] Idania Roldan Clarity (U) CLEAR Normal CLEAR [facility] Comment on above: Performed By: #### B MP, LIPA, YVETTE, LIVER #### [facility] [address] [address] [address] Idania Roldan Color (U) YELLOW Normal YELLOW [facility] Comment on above: Performed By: #### B MP, LIPA, YVETTE, LIVER #### [facility] [address] [place] [address] Dr. Idania Roldan Crystals LM Nom (Urine sed) NONE SEEN Normal NONE SEEN [facility] Comment on above: Performed By: #### B MP, LIPA, YVETTE, LIVER #### [facility] [address] [place] [address] Dr. Idania Roldan Epithelial cells LM Ql (Urine sed) FEW Abnormal NONE SEEN /RARE [facility] Comment on above: Performed By: #### B MP, LIPA, YVETTE, LIVER #### [facility] [address] [place] [address] Dr. Idania Roldan Glucose Ql (U) Negative Normal NEGATIVE [facility] Comment on above: Performed By: #### B MP, LIPA, YVETTE, LIVER #### [facility] [address] [place] [address] Dr. Idania Roldan Hemoglobin Ql (U) Negative Normal NEGATIVE [facility] Comment on above: Performed By: #### B MP, LIPA, YVETTE, LIVER #### [facility] [address] [place] [address] Dr. Idania Roldan Ketones Ql (U) Negative Normal NEGATIVE [facility] Comment on above: Performed By: #### B MP, LIPA, YVETTE, LIVER #### [facility] [address] [address] [address] Idania Roldan LEUKOCYTES SMALL Abnormal NEGATIVE [facility] Comment on above: Performed By: #### B MP, LIPA, YVETTE, LIVER #### [facility] [address] [place] [address] Dr. Idania Roldan MUCOUS TRACE Abnormal NONE SEEN [facility] Comment on above: Performed By: #### B MP, LIPA, YVETTE, LIVER #### [facility] [address] [place] [address] Dr. Idania Roldan Nitrite Ql (U) Negative Normal NEGATIVE [facility] Comment on above: Performed By: #### B MP, LIPA, YVETTE, LIVER #### [facility] [address] [place] [address] Dr. Idania Roldan pH (U) 7.0 [pH] Normal 5-9 [facility] Comment on above: Performed By: #### B MP, LIPA, YVETTE, LIVER #### [facility] [address] [place] [address] Dr. Idania Roldan RBC NONE SEEN Abnormal 0-2 [facility] Comment on above: Performed By: #### B MP, LIPA, YVETTE, LIVER #### [facility] [address] [place] [address] Dr. Idania Roldan SPEC GRAVITY 1.015 Normal 1.005-<=1.02 5 [facility] Comment on above: Performed By: #### B MP, LIPA, YVETTE, LIVER #### [facility] [address] [place] [address] Dr. Idania Roldan UA PROTEIN Negative Normal NEGATIVE/ TRACE [facility] Comment on above: Performed By: #### B MP, LIPA, YVETTE, LIVER #### [facility] [address] [place] [address] Dr. Idania Roldan Urobilinogen Qn (U) 0.2 {Bryan'U}/dL Normal 0.2 - 1.0 [facility] Comment on above: Performed By: #### B MP, LIPA, YVETTE, LIVER #### [facility] [address] [place] [address] Dr. Idania Roldan WBC 5-10 Abnormal NONE SEEN [facility] Comment on above: Performed By: #### B JOSE ALBERTO MOCTEZUMA AMY, LIVER #### [facility] [address] [place], [place] [address] Dr. Idania Roldan Covid-19 PCR ([facility])on 09-10 SARS-CoV-2 (COVID-19) RNA MAMIE+probe Ql (Unsp spec) Not detected Normal NOT DETECTED [facility] Comment on above: Result Comment: This test is not yet approved or cleared by the [place] FDA. When there are no FDA-approved or cleared tests available, and other criteria are met, FDA can make tests available under an emergency access mechanism called an Emergency Use Authorization (EUA). The EUA for this test is supported by the [place] of Health and Human Service's (HHS's) declaration [...] SARS-CoV-2. Performed By: #### C VDTB #### [facility] [address] [place], [place] [id number] Dr. Idania Roldan INFLUENZA A AND B AGon 09-21 [facility] SEE BELOW Normal [facility] Comment on above: Result Comment: Nega tive for Flu A protein angiten. Infection due to Flu A cannot be ruled out. Flu A angiten in the sample may be below the detection limit of the test. Performed By: #### B JOSE ALBERTO MOCTEZUMA AMY, LIVER #### [facility] [address] [place] [address] [id number] [address] Idania Roldan INFLUBNEG SEE BELOW Normal [facility] Comment on above: Result Comment: Nega tive for Flu B protein antigen. Infection due to Flu B cannot be ruled out. Flu B antigen in the sample may be below the detection limit of the test. Performed By: #### B MP, LIPA, YVETTE, LIVER #### [facility] [address] [address] [address] Idania Roldan INFLUENZA A AG Negative Normal NEGATIVE SEE COMMENT [facility] Comment on above: Performed By: #### B MP, LIPA, YVETTE, LIVER #### [facility] [address] [address] [address] Idania Roldan INFLUENZA B AG Negative Normal NEGATIVE SEE COMMENT [facility] Comment on above: Performed By: #### B MP, LIPA, YVETTE, LIVER #### [facility] [address] [address] [address] Idania Roldan INTERNAL CONTROLS Within Normal Limits Normal Wi thin Normal Limits [facility] Comment on above: Performed By: #### B MP, LIPA, YVETTE, LIVER #### [facility] [address] [address] [address] Idania [facility]old[facility] SARS-CoV-2 (COVID-19) RNA MAMIE+probe Ql (Unsp spec) Not detected Normal NOT DETECTED [facility] Comment on above: Result Comment: This test is not yet approved or cleared by the [place] FDA. When there are no FDA-approved or cleared tests available, and other criteria are met, FDA can make tests available under an emergency access mechanism called an Emergency Use Authorization (EUA). The EUA for this test is supported by the [place] of Health and Human Service's (HHS's) declaration [...] #### B MP, LIPA, YVETTE, LIVER #### [facility] [address] [place] [address] Dr. Idania Roldan CBC AUTO DIFFon 08-21-2022 BASO # 0.0 103/ul Normal 0.0-0.1 [facility] Comment on above: Performed By: #### P T, PTT #### [facility] [address] [place] [address] Dr. Idania Roldan Basophils/100 WBC (Bld) 0.4 % Normal 0.2-2.0 [facility] Comment on above: Performed By: #### P T, PTT #### [facility] [address] [place] [address] Dr. Idania Roldan EO # 0.1 103/ul Normal 0.0-0.7 [facility] Comment on above: Performed By: #### P T, PTT #### [facility] [address] [place] [address] Dr. Idania Roldan Eosinophils/100 WBC (Bld) 1.3 % Normal 0.9-7.0 [facility] Comment on above: Performed By: #### P T, PTT #### [facility] [address] [place] [address] Dr. Idania Roldan Erythrocyte distribution width (RBC) [Ratio] 15.3 % Critically high 11.0-15.0 [facility] Comment on above: Performed By: #### P T, PTT #### [facility] [address] [place] [address] Dr. Idania Roldan Hematocrit (Bld) [Volume fraction] 32.1 % Critically low 36.0-48.0 [facility] Comment on above: Performed By: #### P T, PTT #### [facility] [address] [place] [address] Dr. Idania Roldan Hemoglobin (Bld) [Mass/Vol] 9.9 g/dL Critically low 12.0-16.0 [facility] Comment on above: Performed By: #### P T, PTT #### [facility] [address] [place] [address] Dr. Idania Roldan IG # 0.01 10e3/ul Normal 0.00-0.03 [facility] Comment on above: Performed By: #### P T, PTT #### [facility] [address] [place] [address] Dr. Idania Roldan IG % 0.1 % Normal 0.0-0.5 [facility] Comment on above: Performed By: #### P T, PTT #### [facility] [address] [place] [address] Dr. Idania Roldan LYMPH # 2.7 103/ul Normal 1.2-3.8 [facility] Comment on above: Performed By: #### P T, PTT #### [facility] [address] [place] [address] Dr. Idania Roldan Lymphocytes/100 WBC (Bld) 35.7 % Normal 20.5-60.0 [facility] Comment on above: Performed By: #### P T, PTT #### [facility] [address] [place] [address] Dr. Idania Roldan MANUAL DIFF REQ NO Normal [facility] Comment on above: Performed By: #### P T, PTT #### [facility] [address] [place] [address] Dr. Idania Roldan MCH (RBC) [Entitic mass] 24.8 pg Critically low 26.7-34.0 [facility] Comment on above: Performed By: #### P T, PTT #### [facility] [address] [place] [address] Dr. Idania Roldan MCHC (RBC) [Mass/Vol] 30.8 g/dL Normal 29.9-35.2 [facility] Comment on above: Performed By: #### P T, PTT #### [facility] [address] [place] [address] Dr. Idania Roldan MCV (RBC) [Entitic vol] 80.5 fL Critically low 81.0-99.0 [facility] Comment on above: Performed By: #### P T, PTT #### [facility] [address] [place] [address] Dr. Idania Roldan MONO # 0.5 103/ul Normal 0.3-0.8 [facility] Comment on above: Performed By: #### P T, PTT #### [facility] [address] [place] [address] Dr. Idania Roldan Monocytes/100 WBC (Bld) 6.1 % Normal 1.7-12.0 [facility] Comment on above: Performed By: #### P T, PTT #### [facility] [address] [place] [address] Dr. Idania Roldan NEUT # 4.2 103/ul Normal 1.4-6.5 [facility] Comment on above: Performed By: #### P T, PTT #### [facility] [address] [place] [address] Dr. Idania Roldan Neutrophils/100 WBC (Bld) 56.4 % Normal 43.0-75.0 [facility] Comment on above: Performed By: #### P T, PTT #### [facility] [address] [place] [address] Dr. Idania Roldan Platelet mean volume (Bld) [Entitic vol] 9.4 fL Critically low 9.5-13.5 [facility] Comment on above: Performed By: #### P T, PTT #### [facility] [address] [place] [address] Dr. Idania Roldan PLT 296 103/ul Normal 150-450 [facility] Comment on above: Performed By: #### P T, PTT #### [facility] [address] [place] [address] Dr. Idania Roldan RBC 3.99 106/ul Critically low 4.20-5.40 [facility] Comment on above: Performed By: #### P T, PTT #### [facility] [address] [place] [address] Dr. Idania Roldan WBC 7.5 103/ul Normal 4.0-11.0 [facility] Comment on above: Performed By: #### P T, PTT #### [facility] [address] [place] [address] ABD/PELV W CONon [...] RUSSELL DUFF Date: 2022-08-21 12:35 Normal [facility] URINE PROFILEon 2 Bilirubin Ql (U) Unable to perform te sting due to color interference. Abnormal NEGATIVE [facility] Comment on above: Performed By: #### B MP, LIPA, YVETTE, LIVER #### [facility] [address] [address] [address] Idania Roldan Clarity (U) TURBID Abnormal CLEAR [facility] Comment on above: Performed By: #### B MP, LIPA, YVETTE, LIVER #### [facility] [address] [address] [address] Idania Roldan Color (U) RED Abnormal YELLOW [facility] Comment on above: Performed By: #### B MP, LIPA, YVETTE, LIVER #### [facility] [address] [address] [address] Idania Roldan ERUAHGee A micrscopic examina tion will be performed if indicated. Normal [facility] Comment on above: Performed By: #### B MP, LIPA, YVETTE, LIVER #### [facility] [address] [address] [address] Idania Roldan Glucose Ql (U) Unable to perform te sting due to color interference. Abnormal NEGATIVE [facility] Comment on above: Performed By: #### B MP, LIPA, YVETTE, LIVER #### [facility] [address] [address] [address] Idania Roldan Hemoglobin Ql (U) Unable to perform te sting due to color interference. Abnormal NEGATIVE [facility] Comment on above: Performed By: #### B MP, LIPA, YVETTE, LIVER #### [facility] [address] [place] [address] Dr. Idania Roldan Ketones Ql (U) Unable to perform te sting due to color interference. Abnormal NEGATIVE [facility] Comment on above: Performed By: #### B MP, LIPA, YVETTE, LIVER #### [facility] [address] [place] [address] Dr. Idania Roldan LEUKOCYTES Unable to perform te sting due to color interference. Abnormal NEGATIVE [facility] Comment on above: Performed By: #### B MP, LIPA, YVETTE, LIVER #### [facility] [address] [place] [address] Dr. Idania Roldan Nitrite Ql (U) Unable to perform te sting due to color interference. Abnormal NEGATIVE [facility] Comment on above: Performed By: #### B MP, LIPA, YVETTE, LIVER #### [facility] [address] [address] [address] Idania Roldan pH Unable to perform te sting due to color interference. Abnormal 5-9 [facility] Comment on above: Performed By: #### B MP, LIPA, YVETTE, LIVER #### [facility] [address] [address] [address] Idania Roldan SPEC GRAVITY 1.020 Normal 1.005-<=1.02 5 [facility] Comment on above: Performed By: #### B MP, LIPA, YVETTE, LIVER #### [facility] [address] [place] [address] Dr. Idania Roldan UA PROTEIN Unable to perform te sting due to color interference. Normal NEGATIVE/ TRACE [facility] Comment on above: Performed By: #### B MP, LIPA, YVETTE, LIVER #### [facility] [address] [place] [address] Dr. Idania Roldan UR MICRO IND INDICATED Normal [facility] Comment on above: Performed By: #### B MP, LIPA, YVETTE, LIVER #### [facility] [address] [place] [address] Dr. Idania Roldan UROBILINOGEN Unable to perform te sting due to color interference. Normal 0.2 - 1.0 [facility] Comment on above: Performed By: #### B MP, LIPA, YVETTE, LIVER #### [facility] [address] [place] [address] Dr. Idania Roldan PROF 14(COMP METB)on 022 Albumin [Mass/Vol] 4.2 g/dL Normal 3.4-5.0 [facility] Comment on above: Performed By: #### P T, PTT #### [facility] [address] [place] [address] Dr. Idania Roldan Albumin/Globulin [Mass ratio] 1.0 {ratio} Normal [facility] Comment on above: Performed By: #### P T, PTT #### [facility] [address] [place] [address] Dr. Idania Rodlan ALP [Catalytic activity/Vol] 91 U/L Normal 46-116 [facility] Comment on above: Performed By: #### P T, PTT #### [facility] [address] [place] [address] Dr. Idania Roldan ALT [Catalytic activity/Vol] 15 U/L Normal 14-59 [facility] Comment on above: Performed By: #### P T, PTT #### [facility] [address] [place] [address] Dr. Idania Roldan Anion gap [Moles/Vol] 9.6 mmol/L Normal [facility] Comment on above: Performed By: #### P T, PTT #### [facility] [address] [address] [address] Idania Roldan AST [Catalytic activity/Vol] 14 U/L Critically low 15-37 [facility] Comment on above: Performed By: #### P T, PTT #### [facility] [address] [address] [address] Idania Roldan Bilirubin [Mass/Vol] 0.2 mg/dL Normal 0.2-1.0 [facility] Comment on above: Performed By: #### P T, PTT #### [facility] [address] [place] [address] Dr. Idania Roldan Calcium [Mass/Vol] 9.2 mg/dL Normal 8.5-10.1 [facility] Comment on above: Performed By: #### P T, PTT #### [facility] [address] [place] [address] Dr. Idania Roldan Chloride [Moles/Vol] 103 mmol/L Normal 98-107 [facility] Comment on above: Performed By: #### P T, PTT #### [facility] [address] [place] [address] Dr. Idania Roldan CO2 [Moles/Vol] 31.2 mmol/L Normal 21.0-32.[address] [facility] Comment on above: Performed By: #### P T, PTT #### [facility] [address] [place] [address] Dr. Idania Roldan Creatinine [Mass/Vol] 0.76 mg/dL Normal 0.55-1.02 [facility] Comment on above: Performed By: #### P T, PTT #### [facility] [address] [place] [address] Dr. Idania Roldan EGFR-AF CHADIAN >60 Normal >=[address] [facility] Comment on above: Performed By: #### P T, PTT #### [facility] [address] [place] [address] Dr. Idania Roldan EGFR-NON AF CHADIAN >60 Normal >=60 [facility] Comment on above: Performed By: #### P T, PTT #### [facility] [address] [place] [address] Dr. Idania Roldan Globulin (S) [Mass/Vol] 4.2 g/dL Normal [facility] Comment on above: Performed By: #### P T, PTT #### [facility] [address] [place] [address] Dr. Idania Roldan Glucose [Mass/Vol] 107 mg/dL Critically high 74-106 [facility] Comment on above: Performed By: #### P T, PTT #### [facility] [address] [place] [address] Dr. Idania Roldan Potassium [Moles/Vol] 3.8 mmol/L Normal 3.5-5.1 [facility] Comment on above: Performed By: #### P T, PTT #### [facility] [address] [place] [address] Dr. Idania Roldan Protein [Mass/Vol] 8.4 g/dL Critically high 6.4-8.2 [facility] Comment on above: Performed By: #### P T, PTT #### [facility] [address] [place] [address] Dr. Idania Roldan Sodium [Moles/Vol] 140 mmol/L Normal 136-145 [facility] Comment on above: Performed By: #### P T, PTT #### [facility] [address] [place] [address] Dr. Idania Roldan Urea nitrogen [Mass/Vol] 12.0 mg/dL Normal 7.0-18.0 [facility] Comment on above: Performed By: #### P T, PTT #### [facility] [address] [place] [address] Dr. Idania Roldan Urea nitrogen/Creatinin e [Mass ratio] 15.8 mg/mg Normal [facility] Comment on above: Performed By: #### P T, PTT #### [facility] [address] [place] [address] Dr. Idania Roldan URINE MICROSCOPIC ONLYon BACTERIA NONE SEEN Normal NONE SEEN [facility] Comment on above: Performed By: #### B MP, LIPA, YVETTE, LIVER #### [facility] [address] [place] [address] Dr. Idania Roldan Bacteria identified Cx Nom (U) NOT INDICATED Normal [facility] Comment on above: Performed By: #### B MP, LIPA, YVETTE, LIVER #### [facility] [address] [place] [address] Dr. Idania Roldan CAST NONE SEEN Normal NONE SEEN [facility] Comment on above: Performed By: #### B MP, LIPA, YVETTE, LIVER #### [facility] [address] [place] [address] Dr. Idania Roldan Crystals LM Nom (Urine sed) NONE SEEN Normal NONE SEEN [facility] Comment on above: Performed By: #### B MP, LIPA, YVETTE, LIVER #### [facility] [address] [place] [address] Dr. Idania Roldan Epithelial cells LM Ql (Urine sed) RARE Normal NONE SEEN /RARE [facility] Comment on above: Performed By: #### B MP, LIPA, YVETTE, LIVER #### [facility] [address] [place] [address] Dr. Idania Roldan MUCOUS NONE SEEN Normal NONE SEEN [facility] Comment on above: Performed By: #### B MP, LIPA, YVETTE, LIVER #### [facility] [address] [place] [address] Dr. Idania Roldan RBC (U) [#/Vol] /uL Abnormal 0-2 [facility] Comment on above: Performed By: #### B MP, LIPA, YVETTE, LIVER #### [facility] [address] [place] [address] Dr. Idania Roldan WBC 2-5 Abnormal NONE SEEN [facility] Comment on above: Performed By: #### B MP, LIPA, YVETTE, LIVER #### [facility] [address] [place] [address] Dr. Idania Roldan CBC AUTO DIFFon 08-19-2022 BASO # 0.0 103/ul Normal 0.0-0.1 [facility] Comment on above: Performed By: #### P T, PTT #### [facility] [address] [place] [address] Dr. Idania Roldan Basophils/100 WBC (Bld) 0.4 % Normal 0.2-2.0 [facility] Comment on above: Performed By: #### P T, PTT #### [facility] [address] [place] [address] Dr. Idania Roldan EO # 0.1 103/ul Normal 0.0-0.7 [facility] Comment on above: Performed By: #### P T, PTT #### [facility] [address] [place] [address] Dr. Idania Roldan Eosinophils/100 WBC (Bld) 2.0 % Normal 0.9-7.0 [facility] Comment on above: Performed By: #### P T, PTT #### [facility] [address] [place] [address] Dr. Idania Roldan Erythrocyte distribution width (RBC) [Ratio] 14.8 % Normal 11.0-15.0 [facility] Comment on above: Performed By: #### P T, PTT #### [facility] [address] [place] [address] Dr. Idania Roldan Hematocrit (Bld) [Volume fraction] 31.5 % Critically low 36.0-48.0 [facility] Comment on above: Performed By: #### P T, PTT #### [facility] [address] [place] [address] Dr. Idania Roldan Hemoglobin (Bld) [Mass/Vol] 9.5 g/dL Critically low 12.0-16.0 [facility] Comment on above: Performed By: #### P T, PTT #### [facility] [address] [place] [address] Dr. Idania Roldan IG # 0.01 10e3/ul Normal 0.00-0.03 [facility] Comment on above: Performed By: #### P T, PTT #### [facility] [address] [address] [address] Idania Roldan IG % 0.2 % Normal 0.0-0.5 [facility] Comment on above: Performed By: #### P T, PTT #### [facility] [address] [place] [address] Dr. Idania oRldan LYMPH # 1.4 103/ul Normal 1.2-3.8 [facility] Comment on above: Performed By: #### P T, PTT #### [facility] [address] [address] [address] Idania Roldan Lymphocytes/100 WBC (Bld) 29.9 % Normal 20.5-60.0 [facility] Comment on above: Performed By: #### P T, PTT #### [facility] [address] [place] [address] Dr. Idania Roldan MANUAL DIFF REQ NO Normal [facility] Comment on above: Performed By: #### P T, PTT #### [facility] [address] [place] [address] Dr. Idania Roldan MCH (RBC) [Entitic mass] 24.4 pg Critically low 26.7-34.0 [facility] Comment on above: Performed By: #### P T, PTT #### [facility] [address] [place] [address] Dr. Idania Roldan MCHC (RBC) [Mass/Vol] 30.2 g/dL Normal 29.9-35.2 [facility] Comment on above: Performed By: #### P T, PTT #### [facility] [address] [place] [address] Dr. Idania Roldan MCV (RBC) [Entitic vol] 80.8 fL Critically low 81.0-99.0 [facility] Comment on above: Performed By: #### P T, PTT #### [facility] [address] [place] [address] Dr. Idania Roldan MONO # 0.2 103/ul Critically low 0.3-0.8 [facility] Comment on above: Performed By: #### P T, PTT #### [facility] [address] [place] [address] Dr. Idania Roldan Monocytes/100 WBC (Bld) 5.2 % Normal 1.7-12.0 [facility] Comment on above: Performed By: #### P T, PTT #### [facility] [address] [place] [address] Dr. Idania Roldan NEUT # 2.9 103/ul Normal 1.4-6.5 [facility] Comment on above: Performed By: #### P T, PTT #### [facility] [address] [place] [address] Dr. Idania Roldan Neutrophils/100 WBC (Bld) 62.3 % Normal 43.0-75.0 [facility] Comment on above: Performed By: #### P T, PTT #### [facility] [address] [place] [address] Dr. Idania Roldan Platelet mean volume (Bld) [Entitic vol] 8.6 fL Critically low 9.5-13.5 [facility] Comment on above: Performed By: #### P T, PTT #### [facility] [address] [place] [address] Dr. Idania Roldan PLT 269 103/ul Normal 150-450 [facility] Comment on above: Performed By: #### P T, PTT #### [facility] [address] [place] [address] Dr. Idania Roldan RBC 3.90 106/ul Critically low 4.20-5.40 [facility] Comment on above: Performed By: #### P T, PTT #### [facility] [address] [place] [address] Dr. Idania Roldan WBC 4.6 103/ul Normal 4.0-11.0 [facility] Comment on above: Performed By: #### P T, PTT #### [facility] [address] [place] [address] Dr. Idania Roldan PROF CHEM 8 (BAS METB)on Anion gap [Moles/Vol] 9.0 mmol/L Normal [facility] Comment on above: Performed By: #### B MP, LIPA, YVETTE, LIVER #### [facility] [address] [place] [address] Dr. Idania Roldan Calcium [Mass/Vol] 9.1 mg/dL Normal 8.5-10.1 [facility] Comment on above: Performed By: #### B MP, LIPA, YVETTE, LIVER #### [facility] [address] [place] [address] Dr. Idania Roldan Chloride [Moles/Vol] 104 mmol/L Normal 98-107 [facility] Comment on above: Performed By: #### B MP, LIPA, YVETTE, LIVER #### [facility] [address] [place] [address] Dr. Idania Roldan CO2 [Moles/Vol] 31.5 mmol/L Normal 21.0-32.0 [facility] Comment on above: Performed By: #### B MP, LIPA, YVETTE, LIVER #### [facility] [address] [place] [address] Dr. Idania Rlodan Creatinine [Mass/Vol] 0.59 mg/dL Normal 0.55-1.02 [facility] Comment on above: Performed By: #### B MP, LIPA, YVETTE, LIVER #### [facility] [address] [place] [address] Dr. Idania Roldan EGFR-AF CHADIAN >60 Normal >=[address] [facility] Comment on above: Performed By: #### B MP, LIPA, YVETTE, LIVER #### [facility] [address] [place] [address] Dr. Idania Roldan EGFR-NON AF CHADIAN >60 Normal >=60 [facility] Comment on above: Performed By: #### B MP, LIPA, YVETTE, LIVER #### [facility] [address] [place] [address] Dr. Idania Roldan Glucose [Mass/Vol] 90 mg/dL Normal 74-106 [facility] Comment on above: Performed By: #### B MP, LIPA, YVETTE, LIVER #### [facility] [address] [place] [address] Dr. Idania Roldan Potassium [Moles/Vol] 4.5 mmol/L Normal 3.5-5.1 [facility] Comment on above: Performed By: #### B MP, LIPA, YVETTE, LIVER #### [facility] [address] [place] [address] Dr. Idania Roldan Sodium [Moles/Vol] 140 mmol/L Normal 136-145 [facility] Comment on above: Performed By: #### B MP, LIPA, YVETTE, LIVER #### [facility] [address] [place] [address] Dr. Idania Roldan Urea nitrogen [Mass/Vol] 8.0 mg/dL Normal 7.0-18.0 [facility] Comment on above: Performed By: #### B MP, LIPA, YVETTE, LIVER #### [facility] [address] [place] [address] Dr. Idania Roldan Urea nitrogen/Creatinin e [Mass ratio] 13.6 mg/mg Normal [facility] Comment on above: Performed By: #### B MP, LIPA, YVETTE, LIVER #### [facility] [address] [place] [address] Dr. Idania Roldan PROTIMEon 08-19-2022 INR Coag (PPP) [Relative time] 0.93 {INR} Normal [facility] Comment on above: Performed By: #### B MP, LIPA, YVETTE, LIVER #### [facility] [address] [place] [address] Dr. Idania Roldan INR GUIDELINES SEE BELOW Normal [facility] Comment on above: Result Comment: TARUN RED INR: 2.0 - 3.0 CONDITIONS NOT LISTED BELOW 2.5 - 3.5 FOR PROSTHETIC HEART VALVE REPLACEMENT 2.5 - 3.5 RECURRENT THROMBOSIS Performed By: #### B MP, LIPA, YVETTE, LIVER #### [facility] [address] [place] [address] Dr. Idania Roldan PT Coag (PPP) [Time] 10.1 s Normal 9.0-11.6 [facility] Comment on above: Performed By: #### B MP, LIPA, YVETTE, LIVER #### [facility] [address] [address] [address] Idania Roldan PTTon 08-19-2022 aPTT Coag (Bld) [Time] 28.1 s Normal 22.3-36.2 [facility] Comment on above: Performed By: #### B MP, LIPA, YVETTE, LIVER #### [facility] [address] [place] [address] Dr. Idania Roldan Covid-19 PCR ([facility])on 07-11 SARS-CoV-2 (COVID-19) RNA MAMIE+probe Ql (Unsp spec) Not detected Normal NOT DETECTED [facility] Comment on above: Result Comment: This test is not yet approved or cleared by the [place] FDA. When there are no FDA-approved or cleared tests available, and other criteria are met, FDA can make tests available under an emergency access mechanism called an Emergency Use Authorization (EUA). The EUA for this test is supported by the [place] of Health and Human Service's (HHS's) declaration [...] Performed By: #### P T, PTT #### [facility] [address] [place] [address] Dr. Idania Roldan CBC AUTO DIFFon 07-10-2022 BASO # 0.0 103/ul Normal 0.0-0.1 [facility] Comment on above: Performed By: #### P T, PTT #### [facility] [address] [place] [address] Dr. Idania Roldan Basophils/100 WBC (Bld) 0.2 % Normal 0.2-2.0 [facility] Comment on above: Performed By: #### P T, PTT #### [facility] [address] [place] [address] Dr. Idania Roldan EO # 0.1 103/ul Normal 0.0-0.7 [facility] Comment on above: Performed By: #### P T, PTT #### [facility] [address] [place] [address] Dr. Idania Roldan Eosinophils/100 WBC (Bld) 1.3 % Normal 0.9-7.0 [facility] Comment on above: Performed By: #### P T, PTT #### [facility] [address] [place] [address] Dr. Idania Roldan Erythrocyte distribution width (RBC) [Ratio] 16.4 % Critically high 11.0-15.0 [facility] Comment on above: Performed By: #### P T, PTT #### [facility] [address] [place] [address] Dr. Idania Roldan Hematocrit (Bld) [Volume fraction] 33.2 % Critically low 36.0-48.0 [facility] Comment on above: Performed By: #### P T, PTT #### [facility] [address] [place] [address] Dr. Idania Roldan Hemoglobin (Bld) [Mass/Vol] 10.3 g/dL Critically low 12.0-16.0 [facility] Comment on above: Performed By: #### P T, PTT #### [facility] [address] [place] [address] Dr. Idania Roldan IG # 0.01 10e3/ul Normal 0.00-0.03 [facility] Comment on above: Performed By: #### P T, PTT #### [facility] [address] [place] [address] Dr. Idania Roldan IG % 0.2 % Normal 0.0-0.5 [facility] Comment on above: Performed By: #### P T, PTT #### [facility] [address] [place] [address] Dr. Idania Roldan LYMPH # 1.8 103/ul Normal 1.2-3.8 [facility] Comment on above: Performed By: #### P T, PTT #### [facility] [address] [place] [address] Dr. Idania Roldan Lymphocytes/100 WBC (Bld) 38.8 % Normal 20.5-60.0 [facility] Comment on above: Performed By: #### P T, PTT #### [facility] [address] [place] [address] Dr. Idania Roldan MANUAL DIFF REQ NO Normal [facility] Comment on above: Performed By: #### P T, PTT #### [facility] [address] [place] [address] Dr. Idania Roldan MCH (RBC) [Entitic mass] 25.9 pg Critically low 26.7-34.0 [facility] Comment on above: Performed By: #### P T, PTT #### [facility] [address] [place] [address] Dr. Idania Roldan MCHC (RBC) [Mass/Vol] 31.0 g/dL Normal 29.9-35.2 [facility] Comment on above: Performed By: #### P T, PTT #### [facility] [address] [place] [address] Dr. Idania Roldan MCV (RBC) [Entitic vol] 83.4 fL Normal 81.0-99.0 [facility] Comment on above: Performed By: #### P T, PTT #### [facility] [address] [place] [address] Dr. Idania Roldan MONO # 0.3 103/ul Normal 0.3-0.8 [facility] Comment on above: Performed By: #### P T, PTT #### [facility] [address] [place] [address] Dr. Idania Roldan Monocytes/100 WBC (Bld) 6.1 % Normal 1.7-12.0 [facility] Comment on above: Performed By: #### P T, PTT #### [facility] [address] [place] [address] Dr. Idania Roldan NEUT # 2.5 103/ul Normal 1.4-6.5 [facility] Comment on above: Performed By: #### P T, PTT #### [facility] [address] [place] [address] Dr. Idania Roldan Neutrophils/100 WBC (Bld) 53.4 % Normal 43.0-75.0 [facility] Comment on above: Performed By: #### P T, PTT #### [facility] [address] [place] [address] Dr. Idania Roldan Platelet mean volume (Bld) [Entitic vol] 10.1 fL Normal 9.5-13.5 [facility] Comment on above: Performed By: #### P T, PTT #### [facility] [address] [place] [address] Dr. Idania Roldan PLT 239 103/ul Normal 150-450 [facility] Comment on above: Performed By: #### P T, PTT #### [facility] [address] [place] [address] Dr. Idania Roldan RBC 3.98 106/ul Critically low 4.20-5.40 [facility] Comment on above: Performed By: #### P T, PTT #### [facility] [address] [place] [address] Dr. Idania Roldan WBC 4.6 103/ul Normal 4.0-11.0 [facility] Comment on above: Performed By: #### P T, PTT #### [facility] [address] [place] [address] Dr. Idania Roldan PROF CHEM 8 (BAS METB)on Anion gap [Moles/Vol] 8.4 mmol/L Normal [facility] Comment on above: Performed By: #### B MP #### [facility] [address] [place] [address] Dr. Idania Roldan Calcium [Mass/Vol] 9.3 mg/dL Normal 8.5-10.1 [facility] Comment on above: Performed By: #### B MP #### [facility] [address] [place] [address] Dr. Idania Roldan Chloride [Moles/Vol] 103 mmol/L Normal 98-107 [facility] Comment on above: Performed By: #### B MP #### [facility] [address] [address] [address] Idania Roldan CO2 [Moles/Vol] 32.9 mmol/L Critically high 21.0-32.0 [facility] Comment on above: Performed By: #### B MP #### [facility] [address] [address] [address] Idania Roldan Creatinine [Mass/Vol] 0.70 mg/dL Normal 0.55-1.02 [facility] Comment on above: Performed By: #### B MP #### [facility] [address] [address] [address] Idania Roldan EGFR-AF CHADIAN >60 Normal >=60 [facility] Comment on above: Performed By: #### B MP #### [facility] [address] [address] [address] Idania Roldan EGFR-NON AF CHADIAN >60 Normal >=60 [facility] Comment on above: Performed By: #### B MP #### [facility] [address] [address] [address] Idania Roldan Glucose [Mass/Vol] 73 mg/dL Critically low 74-106 [facility] Comment on above: Performed By: #### B MP #### [facility] [address] [address] [address] Idania Roldan Potassium [Moles/Vol] 4.3 mmol/L Normal 3.5-5.1 [facility] Comment on above: Performed By: #### B MP #### [facility] [address] [address] [address] Idania Roldan Sodium [Moles/Vol] 140 mmol/L Normal 136-145 [facility] Comment on above: Performed By: #### B MP #### [facility] [address] [address] [address] Idania Roldan Urea nitrogen [Mass/Vol] 16.0 mg/dL Normal 7.0-18.0 [facility] Comment on above: Performed By: #### B MP #### [facility] [address] [place] [address] Dr. Idania Roldan Urea nitrogen/Creatinin e [Mass ratio] 22.9 mg/mg Normal [facility] Comment on above: Performed By: #### B MP #### [facility] [address] [place] [address] Dr. Idania Roldan PROTIMEon 07-10-2022 INR Coag (PPP) [Relative time] 1.00 {INR} Normal [facility] Comment on above: Performed By: #### P T, PTT #### [facility] [address] [place] [address] Dr. Idania Roldan INR GUIDELINES SEE BELOW Normal [facility] Comment on above: Result Comment: TARUN RED INR: 2.0 - 3.0 CONDITIONS NOT LISTED BELOW 2.5 - 3.5 FOR PROSTHETIC HEART VALVE REPLACEMENT 2.5 - 3.5 RECURRENT THROMBOSIS Performed By: #### P T, PTT #### [facility] [address] [place] [address] Dr. Idania Roldan PT Coag (PPP) [Time] 10.8 s Normal 9.0-11.6 [facility] Comment on above: Performed By: #### P T, PTT #### [facility] [address] [place] [address] Dr. Idaina Roldan PTTon 07-10-2022 aPTT Coag (Bld) [Time] 29.3 s Normal 22.3-36.2 [facility] Comment on above: Performed By: #### P T, PTT #### [facility] [address] [place] [address] Dr. Idania Roldan Operative Reporton Operative Report MR#: [id number] I [facility] Pt. Name: Elvi Moore Room #: [id number] Discharge 06/01/2022 Date: Birthdate: 1980 OPERATIVE REPORT DATE OF SURGERY: 06/01/2022 SURGEON: Kevin Lane M.D. LUMBER LOADER: Blood, M.D. ANESTHESIA: General anesthesia. ESTIMATED BLOOD LOSS: Per [...] arthrotomy was closed with soft #2 interrupted [id number]-nr-[id number] suture. The remainder of the incision closed in layered fashion. Sterile dressing applied. At the conclusion of the case, all sponge and needle counts correct. I was present for the critical portions of this case. Electronically Signed by: Kevin Lane M.D. 06/09/2022 07:[address] M.D. Date Dict: 06/03/2022/07:15 Christine/Kevin Lane M.D. Date Trans: 06/03/2022 08:09 A/taylor [id number] cc: Arleth Acharya M.D. [address] [facility] [id number] Normal [facility] *ANAEROBIC CULTUREon 022 *ANAEROBIC CULTURE Clinical Report: (D) Specimen/Source: FLUID/INTRAOP SPEC Collected: 06/01/2022 14:08 Status: Final Last Updated: 06/06/2022 06:35 (1) 1. LEFT KNEE JOINT FLUID CULT RES (Final) No Anaerobes Isolated 5 Days Normal [facility] Comment on above: Order Comment: 1. LE FT KNEE JOINT FLUID Performed By: #### 3 0312 ####[facility] *ANAEROBIC CULTURE Clinical Report: (D) Specimen/Source: TISSUE/INTRAOP SPEC Collected: 06/01/2022 14:08 Status: Final Last Updated: 06/06/2022 06:35 (1) 2. LEFT KNEE MEDIAL SYNOVIUM CULT RES (Final) No Anaerobes Isolated 5 Days Normal [facility] Comment on above: Order Comment: 2. LE FT KNEE MEDIAL SYNOVIUM Performed By: #### 6 1405 #### [facility] [address] *ANAEROBIC CULTURE Clinical Report: (D) Specimen/Source: TISSUE/INTRAOP SPEC Collected: 06/01/2022 14:08 Status: Final Last Updated: 06/06/2022 06:35 (1) 3. LEFT KNEE LATERAL SYNOVIUM CULT RES (Final) No Anaerobes Isolated 5 Days Normal [facility] Comment on above: Order Comment: 3. LE FT KNEE LATERAL SYNOVIUM Performed By: #### 6 1405 #### [facility] [address] *BODY FLUID CULTUREon 2021 *BODY FLUID CULTURE Clinical Report: (D) Specimen/Source: FLUID/INTRAOP SPEC Collected: 06/01/2022 14:08 Status: Final Last Updated: 06/06/2022 06:39 (1) 1. LEFT KNEE JOINT FLUID GRAM (Final) Quantity Not Sufficient CULT RES (Final) No Growth Day 5 Normal [facility] Comment on above: Order Comment: 1. LE FT KNEE JOINT FLUID Performed By: #### 3 0318 ####[facility] *TISSUE CULTUREon 06-01-2022 *TISSUE CULTURE Clinical Report: (D) Specimen/Source: TISSUE/INTRAOP SPEC Collected: 06/01/2022 14:08 Status: Final Last Updated: 06/06/2022 06:40 (1) 2. LEFT KNEE MEDIAL SYNOVIUM GRAM (Final) Many Polys No Bacteria Seen CULT RES (Final) No Growth Day 5 Normal [facility] Comment on above: Order Comment: 2. LE FT KNEE MEDIAL SYNOVIUM Performed By: #### 3 0338 ####[facility] *TISSUE CULTURE Clinical Report: (D) Specimen/Source: TISSUE/INTRAOP SPEC Collected: 06/01/2022 14:08 Status: Final Last Updated: 06/06/2022 06:39 (1) 3. LEFT KNEE LATERAL SYNOVIUM GRAM (Final) Many Polys No Bacteria Seen CULT RES (Final) No Growth Day 5 Normal [facility] Comment on above: Order Comment: 3. LE FT KNEE LATERAL SYNOVIUM Performed By: #### 3 0338 ####[facility] POC GLUCOSE LABon 06-01-2022 Glucose [Mass/Vol] 86 mg/dL Normal 70-100 [facility] Comment on above: Performed By: #### 8 [id number] #### [facility] [address] PORTABLE KNEE LEFT 2 VWSon 0 06-01-2022 PORTABLE KNEE LEFT 2 VWS [facility] Department of Radiology [address] [place] [address] Patient Name: ELVI MOORE : [...] planned Electronically signed: Yvette Andrade. Transcribed by: [email or web address], User Resident: Electronically Signed by: YVETTE ANDRADE @ 06/02/2022 08:53 AM Normal [facility] Comment on above: Order Comment: Hardw are Evaluation, in PACU *MRSA/MSSA DNA NASALon 05-26 *MRSA/MSSA DNA NASAL Clinical Report: (D) Specimen: NASAL SWAB Collected: 05/26/2022 15:23 Status: Final Last Updated: 05/27/2022 13:43 MSSA DNA (Final) Negative MRSA DNA (Final) Negative Normal [facility] Comment on above: Performed By: #### 3 1595 #### [facility] [address] [place] [address], [facility] C REACTIVE PROTEINon 022 CRP [Mass/Vol] 1.3 mg/L Normal 0.0-7.0 [facility] Comment on above: Performed By: #### 6 1405 #### [facility] [address] CBC W/DIFFon 05-26-2022 ABS IMM GRANS 0.0 10*3/uL Normal 0.0-0.2 [facility] Comment on above: Performed By: #### 6 1405 #### [facility] [address] [place] [address], [facility] ABS NEUTROPHILS 2.5 10*3/uL Normal 1.6-7.6 [facility] Comment on above: Performed By: #### 6 1405 #### [facility] [address] [place] [address], [facility] Basophils (Bld) [#/Vol] 0.0 10*3/uL Normal 0.0-0.2 [facility] Comment on above: Performed By: #### 6 1405 #### [facility] [address] Basophils/100 WBC (Bld) 0.3 % Normal 0.0-1.0 [facility] Comment on above: Performed By: #### 6 1405 #### [facility] [address] [place] [address], [facility] Eosinophils (Bld) [#/Vol] 0.1 10*3/uL Normal 0.0-0.5 [facility] Comment on above: Performed By: #### 6 1405 #### [facility] [address] [place] [address], [facility] Eosinophils/100 WBC (Bld) 1.5 % Normal 0.0-6.0 [facility] Comment on above: Performed By: #### 6 1405 #### [facility] [address] Erythrocyte distribution width (RBC) [Ratio] 15.9 % High 11.5-15.0 [facility] Comment on above: Performed By: #### 6 1405 #### [facility] [address] Hematocrit (Bld) [Volume fraction] 35.0 % Low 36.0-45.0 [facility] Comment on above: Performed By: #### 6 1405 #### [facility] [address] [place] [address], [facility] Hemoglobin (Bld) [Mass/Vol] 10.6 g/dL Low 12.0-15.0 [facility] Comment on above: Performed By: #### 6 1405 #### [facility] [address] [place] [address], [facility] IMMATURE GRANS 0.2 % Normal 0.0-1.0 [facility] Comment on above: Performed By: #### 6 1405 #### [facility] [address] Lymphocytes (Bld) [#/Vol] 2.8 10*3/uL Normal 1.2-4.0 [facility] Comment on above: Performed By: #### 6 1405 #### [facility] [address] Lymphocytes/100 WBC (Bld) 48.0 % High 20.0-45.0 [facility] Comment on above: Performed By: #### 6 1405 #### [facility] [address] [place] [address], [facility] MCH (RBC) [Entitic mass] 24.5 pg Low 27.0-33.0 [facility] Comment on above: Performed By: #### 6 1405 #### [facility] [address] [place] [address], [facility] MCHC (RBC) [Mass/Vol] 30.3 g/dL Low 32.0-35.0 [facility] Comment on above: Performed By: #### 6 1405 #### [facility] [address] [place] [address], [facility] MCV (RBC) [Entitic vol] 81.0 fL Low 82.0-98.0 [facility] Comment on above: Performed By: #### 6 1405 #### [facility] [address] [place] [address], [facility] Monocytes (Bld) [#/Vol] 0.4 10*3/uL Normal 0.1-1.0 [facility] Comment on above: Performed By: #### 6 1405 #### [facility] [address] [place] [address], [facility] MONOS 6.8 % Normal 5.0-12.0 [facility] Comment on above: Performed By: #### 6 1405 #### [facility] [address] [place] [address], [facility] Neutrophils/100 WBC (Bld) 43.2 % Normal 40.0-72.0 [facility] Comment on above: Performed By: #### 6 1405 #### [facility] [address] [place] [address], [facility] Nucleated RBC/100 WBC (Bld) [Ratio] 0 % Normal 0-0 [facility] Comment on above: Performed By: #### 6 1405 #### [facility] [address] [place] [address], [facility] PLAT CNT 246 10*3/uL Normal 150-400 [facility] Comment on above: Performed By: #### 6 1405 #### [facility] [address] [facility] [place] [address], [facility] RBC (Bld) [#/Vol] 4.32 10*6/uL Normal 3.80-5.00 [facility] Comment on above: Performed By: #### 6 1405 #### [facility] [address] [place] [address], [facility] WBC (Bld) [#/Vol] 5.87 10*3/uL Normal 4.00-10.60 [facility] Comment on above: Performed By: #### 6 1405 #### [facility] [address] HEMOGLOBIN A1Con 05-26-2022 Glucose [Moles/Vol] 100 mmol/L Normal [facility] Comment on above: Performed By: #### 3 1791 #### [facility] [address] HbA1c (Bld) [Mass fraction] 5.1 % Normal 4.0-6.0 [facility] Comment on above: Performed By: #### 3 1791 #### [facility] [address] SEDIMENTATION RATEon 022 SED RATE 17 mm/hr Normal 0-20 [facility] Comment on above: Performed By: #### 6 1405 #### [facility] [address] US KIDNEYS BLADDERon 022 US KIDNEYS [...] RUSSELL DUFF Date: 2022-05-02 16:18 Normal [facility] CBC AUTO DIFFon 04-29-2022 BASO # 0.0 103/ul Normal 0.0-0.1 [facility] Comment on above: Performed By: #### B MP, LIPA, YVETTE, LIVER #### [facility] [address] [place] [address] Dr. Idania Roldan Basophils/100 WBC (Bld) 0.3 % Normal 0.2-2.0 [facility] Comment on above: Performed By: #### B MP, LIPA, YVETTE, LIVER #### [facility] [address] [place] [address] Dr. Idania Roldan EO # 0.1 103/ul Normal 0.0-0.7 [facility] Comment on above: Performed By: #### B MP, LIPA, YVETTE, LIVER #### [facility] [address] [place] [address] Dr. Idania Roldan Eosinophils/100 WBC (Bld) 0.9 % Normal 0.9-7.0 [facility] Comment on above: Performed By: #### B MP, LIPA, YVETTE, LIVER #### [facility] [address] [place] [address] Dr. Idania Roldan Erythrocyte distribution width (RBC) [Ratio] 15.4 % Critically high 11.0-15.0 [facility] Comment on above: Performed By: #### B MP, LIPA, YVETTE, LIVER #### [facility] [address] [place] [address] Dr. Idania Roldan Hematocrit (Bld) [Volume fraction] 36.0 % Normal 36.0-48.0 [facility] Comment on above: Performed By: #### B MP, LIPA, YVETTE, LIVER #### [facility] [address] [place] [address] Dr. Idania Roldan Hemoglobin (Bld) [Mass/Vol] 11.2 g/dL Critically low 12.0-16.0 [facility] Comment on above: Performed By: #### B MP, LIPA, YVETTE, LIVER #### [facility] [address] [place] [address] Dr. Idania Roldan IG # 0.02 10e3/ul Normal 0.00-0.03 [facility] Comment on above: Performed By: #### B MP, LIPA, YVETTE, LIVER #### [facility] [address] [address] [address] Idania Roldan IG % 0.3 % Normal 0.0-0.5 [facility] Comment on above: Performed By: #### B MP, LIPA, YVETTE, LIVER #### [facility] [address] [place] [address] Dr. Idania Roldan LYMPH # 2.5 103/ul Normal 1.2-3.8 [facility] Comment on above: Performed By: #### B MP, LIPA, YVETTE, LIVER #### [facility] [address] [place] [address] Dr. Idania Roldan Lymphocytes/100 WBC (Bld) 36.2 % Normal 20.5-60.0 [facility] Comment on above: Performed By: #### B MP, LIPA, YVETTE, LIVER #### [facility] [address] [place] [address] Dr. Idania Roldan MANUAL DIFF REQ NO Normal [facility] Comment on above: Performed By: #### B MP, LIPA, YVETTE, LIVER #### [facility] [address] [place] [address] Dr. Idania Roldan MCH (RBC) [Entitic mass] 24.9 pg Critically low 26.7-34.0 [facility] Comment on above: Performed By: #### B MP, LIPA, YVETTE, LIVER #### [facility] [address] [place] [address] Dr. Idania Roldan MCHC (RBC) [Mass/Vol] 31.1 g/dL Normal 29.9-35.2 [facility] Comment on above: Performed By: #### B MP, LIPA, YVETTE, LIVER #### [facility] [address] [place] [address] Dr. Idania Roldan MCV (RBC) [Entitic vol] 80.2 fL Critically low 81.0-99.0 [facility] Comment on above: Performed By: #### B MP, LIPA, YVETTE, LIVER #### [facility] [address] [place] [address] Dr. Idania Roldan MONO # 0.5 103/ul Normal 0.3-0.8 [facility] Comment on above: Performed By: #### B MP, LIPA, YVETTE, LIVER #### [facility] [address] [place] [address] Dr. Idania Roldan Monocytes/100 WBC (Bld) 6.7 % Normal 1.7-12.0 [facility] Comment on above: Performed By: #### B MP, LIPA, YVETTE, LIVER #### [facility] [address] [place] [address] Dr. Idania Roldan NEUT # 3.8 103/ul Normal 1.4-6.5 [facility] Comment on above: Performed By: #### B MP, LIPA, YVETTE, LIVER #### [facility] [address] [place] [address] Dr. Idania Roldan Neutrophils/100 WBC (Bld) 55.6 % Normal 43.0-75.0 [facility] Comment on above: Performed By: #### B MP, LIPA, YVETTE, LIVER #### [facility] [address] [place] [address] Dr. Idania Roldan Platelet mean volume (Bld) [Entitic vol] 9.9 fL Normal 9.5-13.5 [facility] Comment on above: Performed By: #### B MP, LIPA, YVETTE, LIVER #### [facility] [address] [place] [address] Dr. Idania Roldan PLT 265 103/ul Normal 150-450 [facility] Comment on above: Performed By: #### B MP, LIPA, YVETTE, LIVER #### [facility] [address] [place] [address] Dr. Idania Roldan RBC 4.49 106/ul Normal 4.20-5.40 [facility] Comment on above: Performed By: #### B MP, LIPA, YVETTE, LIVER #### [facility] [address] [place] [address] Dr. Idania Roldan WBC 6.8 103/ul Normal 4.0-11.0 [facility] Comment on above: Performed By: #### B MP, LIPA, YVETTE, LIVER #### [facility] [address] [place] [address] Dr. Idania Roldan ER URINE PROFILEon 2 Bilirubin Ql (U) Negative Normal NEGATIVE [facility] Comment on above: Performed By: #### P T, PTT #### [facility] [address] [place] [address] Dr. Idania Roldan Clarity (U) CLEAR Normal CLEAR [facility] Comment on above: Performed By: #### P T, PTT #### [facility] [address] [place] [address] Dr. Idania Roldan Color (U) LT. YELLOW Normal YELLOW [facility] Comment on above: Performed By: #### P T, PTT #### [facility] [address] [place] [address] Dr. Idania Roldan ERUAHD A micrscopic examina tion will be performed if indicated. Normal [facility] Comment on above: Performed By: #### P T, PTT #### [facility] [address] [place] [address] Dr. Idania Roldan Glucose Ql (U) Negative Normal NEGATIVE [facility] Comment on above: Performed By: #### P T, PTT #### [facility] [address] [place] [address] Dr. Idania Roldan Hemoglobin Ql (U) LARGE Abnormal NEGATIVE [facility] Comment on above: Performed By: #### P T, PTT #### [facility] [address] [place] [address] Dr. Idania Rodlan Ketones Ql (U) Negative Normal NEGATIVE [facility] Comment on above: Performed By: #### P T, PTT #### [facility] [address] [place] [address] Dr. Idania Roldan LEUKOCYTES TRACE Abnormal NEGATIVE [facility] Comment on above: Performed By: #### P T, PTT #### [facility] [address] [place] [address] Dr. Idania Roldan Nitrite Ql (U) Negative Normal NEGATIVE [facility] Comment on above: Performed By: #### P T, PTT #### [facility] [address] [place] [address] Dr. Idania Roldan pH (U) 6.0 [pH] Normal 5-9 [facility] Comment on above: Performed By: #### P T, PTT #### [facility] [address] [place] [address] Dr. Idania Roldan SPEC GRAVITY 1.010 Normal 1.005-<=1.02 5 [facility] Comment on above: Performed By: #### P T, PTT #### [facility] [address] [place] [address] Dr. Idania Roldan UA PROTEIN Negative Normal NEGATIVE/ TRACE [facility] Comment on above: Performed By: #### P T, PTT #### [facility] [address] [place] [address] Dr. Idania Roldan UR MICRO IND INDICATED Normal [facility] Comment on above: Performed By: #### P T, PTT #### [facility] [address] [place] [address] Dr. Idania Roldan Urobilinogen Qn (U) 0.2 {Bryan'U}/dL Normal 0.2 - 1.0 [facility] Comment on above: Performed By: #### P T, PTT #### [facility] [address] [place] [address] Dr. Idania Roldan PROF CHEM 8 (BAS METB)on Anion gap [Moles/Vol] 10.9 mmol/L Normal [facility] Comment on above: Performed By: #### P T, PTT #### [facility] [address] [place] [address] Dr. Idania Roldan Calcium [Mass/Vol] 8.9 mg/dL Normal 8.5-10.1 [facility] Comment on above: Performed By: #### P T, PTT #### [facility] [address] [address] [address] Idania Roldan Chloride [Moles/Vol] 104 mmol/L Normal 98-107 [facility] Comment on above: Performed By: #### P T, PTT #### [facility] [address] [address] [address] Idania Roldan CO2 [Moles/Vol] 28.9 mmol/L Normal 21.0-32.[address] [facility] Comment on above: Performed By: #### P T, PTT #### [facility] [address] [address] [address] Idania Roldan Creatinine [Mass/Vol] 0.71 mg/dL Normal 0.55-1.02 [facility] Comment on above: Performed By: #### P T, PTT #### [facility] [address] [address] [address] Idania Roldan EGFR-AF CHADIAN >60 Normal >=[address] [facility] Comment on above: Performed By: #### P T, PTT #### [facility] [address] [address] [address] Idania Roldan EGFR-NON AF CHADIAN >60 Normal >=60 [facility] Comment on above: Performed By: #### P T, PTT #### [facility] [address] [address] [address] Idania Roldan Glucose [Mass/Vol] 88 mg/dL Normal 74-106 [facility] Comment on above: Performed By: #### P T, PTT #### [facility] [address] [address] [address] Idania Roldan Potassium [Moles/Vol] 3.8 mmol/L Normal 3.5-5.1 [facility] Comment on above: Performed By: #### P T, PTT #### [facility] [address] [address] [address] Idania Roldan Sodium [Moles/Vol] 140 mmol/L Normal 136-145 [facility] Comment on above: Performed By: #### P T, PTT #### [facility] [address] [place] [address] Dr. Idania Roldan Urea nitrogen [Mass/Vol] 13.0 mg/dL Normal 7.0-18.0 [facility] Comment on above: Performed By: #### P T, PTT #### [facility] [address] [place] [address] Dr. Idania Roldan Urea nitrogen/Creatinin e [Mass ratio] 18.3 mg/mg Normal [facility] Comment on above: Performed By: #### P T, PTT #### [facility] [address] [place] [address] Dr. Idania Roldan URINE MICROSCOPIC ONLYon BACTERIA NONE SEEN Normal NONE SEEN [facility] Comment on above: Performed By: #### P T, PTT #### [facility] [address] [place] [address] Dr. Idania Roldan Bacteria identified Cx Nom (U) NOT INDICATED Normal [facility] Comment on above: Performed By: #### P T, PTT #### [facility] [address] [place] [address] Dr. Idania Roldan CAST NONE SEEN Normal NONE SEEN [facility] Comment on above: Performed By: #### P T, PTT #### [facility] [address] [place] [address] Dr. Idania Roldan Crystals LM Nom (Urine sed) NONE SEEN Normal NONE SEEN [facility] Comment on above: Performed By: #### P T, PTT #### [facility] [address] [place] [address] Dr. Idania Roldan Epithelial cells LM Ql (Urine sed) FEW Abnormal NONE SEEN /RARE [facility] Comment on above: Performed By: #### P T, PTT #### [facility] [address] [place] [address] Dr. Iadnia Roldan MUCOUS NONE SEEN Normal NONE SEEN [facility] Comment on above: Performed By: #### P T, PTT #### [facility] [address] [place] [address] Dr. Idania Roldan RBC 50-75 Abnormal 0-2 [facility] Comment on above: Performed By: #### P T, PTT #### [facility] [address] [place], [place] [address] Dr. Idania Roldan WBC 0-2 Abnormal NONE SEEN [facility] Comment on above: Performed By: #### P T, PTT #### [facility] [address] [place], [place] [address] Dr. Idania Roldan XR ABD FLAT UP_PA [...] RUSSELL DUFF Date: 2022-04-29 13:37 Normal [facility] US KIDNEYS BLADDERon 022 US KIDNEYS [...] 04-07-2022 CT LOWER EXTREMITY WO CONTRAST LEFT [facility] Department of Radiology [address] [place] [id number] Patient Name: ELVI MOORE : 1980 Sex: F Age: Race: White Pt. Location: Patient Status: D Ordered Date: 03/24/2022 9:30:00 AM Completed Date: 04/07/2022 05:13 PM Requesting Provider: KEVIN LANE Attending Provider: KEVIN LANE Report Copy To: ARLETH ACHARYA Signs & Symptoms: Z96.659 Presence of unspecified artificial knee joint I10 History: [place] Comments: , left knee Exam: CT LOWER [...] arthroplasty. Electronically signed: Elvis Perez. Transcribed by: [email or web address], User Resident: Electronically Signed by: ELVIS PEREZ @ 04/12/2022 09:46 AM Normal [facility] Comment on above: Order Comment: , lef t knee C REACTIVE PROTEINon 022 CRP [Mass/Vol] 2.2 mg/L Normal 0.0-7.0 [facility] Comment on above: Performed By: #### 3 1791 #### [address] SEDIMENTATION RATEon 022 SED RATE 30 mm/hr High 0-20 [facility] Comment on above: Performed By: #### 5 6506 #### [address] [facility] 1 OR 2 VWS [facility] Department of Radiology [address] [place] [id number] Patient Name: ELVI MOORE : 1980 [...] report. Electronically signed: Sathya Christianson. Transcribed by: [email or web address], User Resident: Electronically Signed by: SATHYA CHRISTIANSON @ 02/13/2022 10:48 PM Normal [facility] Comment on above: Order Comment: LT KN EE REANNA Operative Reporton Operative Report MR#: [id number] S [facility] Pt. Name: Elvi Moore Room #: 0C Discharge Date: Birthdate: 1980 OPERATIVE REPORT DATE OF SURGERY: 02/12/2022 SURGEON: Kevin Lane M.D. LUMBER LOADER: None. PREOPERATIVE DIAGNOSIS: Left total knee arthroplasty [...] Lane M.D. Date Trans: 02/12/2022 09:35 A/taylor [id number] cc: Arleth Acharya M.D. [address] [id number] Normal [facility] POC GLUCOSE LABon 02-12-2022 Glucose [Mass/Vol] 96 mg/dL Normal 70-100 [facility] Comment on above: Performed By: #### 8 5499 ####[facility] [place] [address], [facility] C REACTIVE PROTEINon 022 CRP [Mass/Vol] 1.7 mg/L Normal 0.0-7.0 [facility] Comment on above: Performed By: #### 6 1405 #### [facility] [address] [place] [address], [facility] SEDIMENTATION RATEon 022 SED RATE 18 mm/hr Normal 0-20 [facility] Comment on above: Performed By: #### 6 1405 #### [facility] [address] [place] [address], [facility] KNEE LEFT 3 VWSon 12-26-2021 KNEE LEFT 3 [facility] Department of Radiology [address] [place] [phone] Patient Name: ELVI MOORE : 1980 Sex: F Age: Race: White Pt. Location: Patient Status: Ordered Date: 12/26/2021 1:45:00 PM Completed Date: 12/26/2021 01:50 PM Requesting Provider: JORDEN BRODY Attending Provider: Report Copy To: Signs & Symptoms: Z47.1 Aftercare following joint replacement surgery I10 History: [place] Comments: , , , Ordering Provider - JORDEN BRODY CNP , Exam: KNEE LEFT 3 [facility] KNEE LEFT 3 [facility] 12/26/2021 1:50 PM CLINICAL INDICATIONS: Z47.1 Aftercare [...] report. Electronically signed: Yvette Desai. Transcribed by: [email or web address], User Resident: CHRISTELLE ABDI Electronically Signed by: YVETTE DESAI @ 12/26/2021 04:27 PM I personally read this/these film(s) with this resident Normal [facility] Comment on above: Order Comment: , , = ========= , Ordering Provider - JORDEN BRODY PHYSICAL EDUCATION SPECIALIST , KNEE LEFT 3 VWSon 12-09-2021 KNEE LEFT 3 VWS [facility] Department of Radiology [address] [place] [phone] Patient Name: ELVI MOORE : 1980 Sex: F Age: Race: White Pt. Location: Patient Status: D Ordered Date: 12/09/2021 9:30:00 AM Completed Date: 12/09/2021 09:37 AM Requesting Provider: JORDEN BRODY Attending Provider: JORDEN BRODY Report Copy To: Signs & Symptoms: Z47.1 Aftercare following joint replacement surgery I10 History: [place] Comments: Exam: KNEE LEFT 3 VWS KNEE LEFT 3 VWS HISTORY: Knee replacement, follow-up. COMPARISON: 10/30/2021. IMPRESSION: 1. Redemonstrated knee arthroplasty, no hardware complication or acute abnormality. Small to moderate joint effusion. 2. Improving soft tissue changes. Electronically signed: Ezio Roberts. Transcribed by: [email or web address], User Resident: Electronically Signed by: EZIO ROBERTS @ 12/10/2021 08:39 AM Normal [facility] Operative Reporton 2 Operative Report MR#: [id number] S [facility] Pt. Name: Elvi Moore Room #: 0C Discharge Date: Birthdate: 1980 OPERATIVE REPORT DATE OF SURGERY: 10/30/2021 SURGEON: Kevin Lane M.D. LUMBER LOADER: 1. MD [place]. 2. LAVON Quinones. ANESTHESIA: [...] arthrotomy was closed itself with #2 interrupted [id number] suture. The remainder of the incision was closed in a layered fashion. Sterile dressing was applied. At the conclusion of the case, all sponge and needle counts were correct. I was present for the critical portions of this case. Electronically Signed by: Kevin Lane M.D. 10/30/2021 07:[address] M.D. Date Dict: 10/30/2021/11:00 A/Kevin Lane M.D. Date Trans: 10/30/2021 12:34 P/taylor [id number] cc: Arleth Acharya M.D. [id number] [facility] [place] [address] Nasir Thacker DO [address] [facility] [address] Normal [facility] POC GLUCOSE LABon 10-30-2021 Glucose [Mass/Vol] 88 mg/dL Normal 70-100 [facility] Comment on above: Performed By: #### 8 5499 ####[facility] PORTABLE KNEE LEFT 2 VWSon 0 10-30-2021 PORTABLE KNEE LEFT 2 VWS [facility] Department of Radiology [address] [place] [phone] Patient Name: ELVI MOORE : [...] complication Electronically signed: Yvette Andrade. Transcribed by: [email or web address], User Resident: Electronically Signed by: YVETTE ANDRADE @ 10/30/2021 11:20 AM Normal [facility] Comment on above: Order Comment: Hardw are Evaluation, Postop PACU films for L knee s/p TKA. AP and lateral please *MRSA/MSSA DNA NASALon 10-07 *MRSA/MSSA DNA NASAL Clinical Report: (D) Specimen: NASAL SWAB Collected: 10/07/2021 10:51 Status: Final Last Updated: 10/07/2021 15:44 MSSA DNA (Final) Negative MRSA DNA (Final) Negative Normal [facility] Comment on above: Performed By: #### 3 1595 ####[facility] APTTon 10-07-2021 aPTT Coag (Bld) [Time] 32.2 s Normal 25.0-35.0 [facility] Comment on above: Result Comment: ALL [...] PURPOSE. Performed By: #### 3 1791 #### [facility] [address] BASIC METABOLIC PANELon - Calcium [Mass/Vol] 9.2 mg/dL Normal 8.6-10.3 [facility] Comment on above: Performed By: #### 3 1791 #### [facility] [address] [place] [address], [place] Chloride [Moles/Vol] 106 mmol/L Normal 98-107 [facility] Comment on above: Performed By: #### 3 1791 #### [facility] [address] [place] [address], [place] CO2 [Moles/Vol] 28 mmol/L Normal 21-31 [facility] Comment on above: Performed By: #### 3 1791 #### [facility] [address] [place] [address], [place] Creatinine [Mass/Vol] 0.77 mg/dL Normal 0.60-1.20 [facility] Comment on above: Performed By: #### 3 1791 #### [facility] [address] [place] [address], [place] GFR/1.73 sq M.predicted among blacks MDRD (S/P/Bld) [Vol rate/Area] mL/min/{1.73_m2} Normal >60 [facility] Comment on above: Performed By: #### 3 1791 #### [facility] [address] [place] [address], [place] GFR/1.73 sq M.predicted among non-blacks MDRD (S/P/Bld) [Vol rate/Area] mL/min/{1.73_m2} Normal >60 [facility] Comment on above: Performed By: #### 3 1791 #### [facility] [address] [place] [address], [place] Glucose [Mass/Vol] 84 mg/dL Normal 70-100 [facility] Comment on above: Performed By: #### 3 179 #### [facility] [address] [place] [address], [place] Potassium [Moles/Vol] 4.4 mmol/L Normal 3.5-5.1 [facility] Comment on above: Performed By: #### 3 1791 #### [facility] [address] [place] [address], [facility] Sodium [Moles/Vol] 142 mmol/L Normal 136-145 [facility] Comment on above: Performed By: #### 3 1791 #### [facility] [address] Urea nitrogen [Mass/Vol] 12 mg/dL Normal 7-25 [facility] Comment on above: Performed By: #### 3 1791 #### [facility] [address] CBC W/DIFFon 10-07-2021 ABS IMM GRANS 0.0 10*3/uL Normal 0.0-0.2 [facility] Comment on above: Performed By: #### 6 1405 #### [facility] [address] ABS NEUTROPHILS 4.7 10*3/uL Normal 1.6-7.6 [facility] Comment on above: Performed By: #### 6 1405 #### [facility] [address] [place] [address], [facility] Basophils (Bld) [#/Vol] 0.0 10*3/uL Normal 0.0-0.2 [facility] Comment on above: Performed By: #### 6 1405 #### [facility] [address] [place] [address], [facility] Basophils/100 WBC (Bld) 0.3 % Normal 0.0-1.0 [facility] Comment on above: Performed By: #### 6 1405 #### [facility] [address] [place] [address], [facility] Eosinophils (Bld) [#/Vol] 0.2 10*3/uL Normal 0.0-0.5 [facility] Comment on above: Performed By: #### 6 1405 #### [facility] [address] [facility] [address], [facility] Eosinophils/100 WBC (Bld) 1.9 % Normal 0.0-6.0 [facility] Comment on above: Performed By: #### 6 1405 #### [facility] [address] [facility] Erythrocyte distribution width (RBC) [Ratio] 14.0 % Normal 11.5-15.0 [facility] Comment on above: Performed By: #### 6 1405 #### [facility] [address] [place] [address], [facility] Hematocrit (Bld) [Volume fraction] 37.1 % Normal 36.0-45.0 [facility] Comment on above: Performed By: #### 6 1405 #### [facility] [address] [facility]. [address] Hemoglobin (Bld) [Mass/Vol] 11.3 g/dL Low 12.0-15.0 [facility] Comment on above: Performed By: #### 6 1405 #### [facility] [address] [place] [place] [address], [facility] IMMATURE GRANS 0.1 % Normal 0.0-1.0 [facility] Comment on above: Performed By: #### 6 1405 #### [facility] [address] [place] [address], [facility] Lymphocytes (Bld) [#/Vol] 2.5 10*3/uL Normal 1.2-4.0 [facility] Comment on above: Performed By: #### 6 1405 #### [facility] [address] [place] [address], [facility] Lymphocytes/100 WBC (Bld) 31.6 % Normal 20.0-45.0 [facility] Comment on above: Performed By: #### 6 1405 #### [facility] [address] [place] [address], [facility] MCH (RBC) [Entitic mass] 25.5 pg Low 27.0-33.0 [facility] Comment on above: Performed By: #### 6 1405 #### [facility] [address] [place] [address], [facility] MCHC (RBC) [Mass/Vol] 30.5 g/dL Low 32.0-35.0 [facility] Comment on above: Performed By: #### 6 1405 #### [facility] [address] [place] [address], [facility] MCV (RBC) [Entitic vol] 83.7 fL Normal 82.0-98.0 [facility] Comment on above: Performed By: #### 6 1405 #### [facility] [address] [place] [address], [facility] Monocytes (Bld) [#/Vol] 0.5 10*3/uL Normal 0.1-1.0 [facility] Comment on above: Performed By: #### 6 1405 #### [facility] [address] MONOS 6.0 % Normal 5.0-12.0 [facility] Comment on above: Performed By: #### 6 1405 #### [facility] [address] Neutrophils/100 WBC (Bld) 60.1 % Normal 40.0-72.0 [facility] Comment on above: Performed By: #### 6 1405 #### [facility] [address] [place] [address], [facility] Nucleated RBC/100 WBC (Bld) [Ratio] 0 % Normal 0-0 [facility] Comment on above: Performed By: #### 6 1405 #### [facility] [address] [place] [address], [facility] PLAT CNT 233 10*3/uL Normal 150-400 [facility] Comment on above: Performed By: #### 6 1405 #### [facility] [address] [place] [place] [address], [facility] RBC (Bld) [#/Vol] 4.43 10*6/uL Normal 3.80-5.00 [facility] Comment on above: Performed By: #### 6 1405 #### [facility] [address] [place] [address], [facility] WBC (Bld) [#/Vol] 7.85 10*3/uL Normal 4.00-10.60 [facility] Comment on above: Performed By: #### 6 1405 #### [facility] [address] PROTHROMBIN TIMEon 1 INR Coag (PPP) [Relative time] 0.94 {INR} Normal 0.91-1.16 [facility] Comment on above: Result Comment: ACCC P RECOMMENDED INR FOR WARFARIN THERAPY ----- ------- CONDITION INR PROPHYLAXIS OF VENOUS THROMBOSIS 2-3 (HIGH-RISK SURGERY) TREATMENT OF VENOUS THROMBOSIS 2-3 TREATMENT OF PULMONARY EMBOLISM 2-3 PREVENTION OF SYSTEMIC EMBOLISM: 2-3 ACUTE MYOCARDIAL INFARCTION TISSUE HEART VALVES VALVULAR HEART DISEASE ATRIAL FIBRILLATION RECURRENT SYSTEMIC EMBOLISM MECHANICAL HEART VALVE 2.5-3.5 FROM: ORAL ANTICOAGULANTS. MECHANISM OF ACTION, CLINICAL EFFECTIVENESS, AND OPTIMAL THERAPEUTIC RANGE. CHEST 1995;108:231S-246S. Performed By: #### 3 1791 #### [facility] [address] [facility] PT Coag (PPP) [Time] 12.6 s Normal 12.3-14.8 [facility] Comment on above: Result Comment: ALL RESULTS MUST BE INTERPRETED WITH RESPECT TO BLOOD DRAWING ARTIFACT OR DILUTION ERROR OF ANTICOAGULANT AT THE TIME OF SAMPLING. Performed By: #### 3 1791 #### [facility] [address] [facility] TYPE AND SCREENon 10-07-2021 ABO INTERPRETATION O Normal [facility] Comment on above: Performed By: #### 3 1791 #### [facility] [address] [facility]. [address] RH INTERPRETATION Positive Normal [facility] Comment on above: Performed By: #### 3 1791 #### [facility] [address] *MRSA/MSSA DNA NASALon 08-12 *MRSA/MSSA DNA NASAL Clinical Report: (D) Specimen: NASAL SWAB Collected: 08/12/2021 10:14 Status: Final Last Updated: 08/12/2021 18:58 MSSA DNA (Final) Negative MRSA DNA (Final) Negative Normal [facility] Comment on above: Performed By: #### 6 1405 #### [facility] [address] [facility]. [address] CBC W/DIFFon 08-12-2021 ABS IMM GRANS 0.0 10*3/uL Normal 0.0-0.2 [facility] Comment on above: Performed By: #### 6 1405 #### [facility] [address] ABS NEUTROPHILS 3.7 10*3/uL Normal 1.6-7.6 [facility] Comment on above: Performed By: #### 6 1405 #### [facility] [address] [place] [address], [facility] Basophils (Bld) [#/Vol] 0.0 10*3/uL Normal 0.0-0.2 [facility] Comment on above: Performed By: #### 6 1405 #### [facility] [address] [place] [address], [facility] Basophils/100 WBC (Bld) 0.3 % Normal 0.0-1.0 [facility] Comment on above: Performed By: #### 6 1405 #### [facility] [address] [place] [place] [address], [facility] Eosinophils (Bld) [#/Vol] 0.2 10*3/uL Normal 0.0-0.5 [facility] Comment on above: Performed By: #### 6 1405 #### [facility] [address] [place] [address], [facility] Eosinophils/100 WBC (Bld) 2.9 % Normal 0.0-6.0 [facility] Comment on above: Performed By: #### 6 1405 #### [facility] [address] [facility] Erythrocyte distribution width (RBC) [Ratio] 14.0 % Normal 11.5-15.0 [facility] Comment on above: Performed By: #### 6 1405 #### [facility] [address] [place] [address], [facility] Hematocrit (Bld) [Volume fraction] 37.0 % Normal 36.0-45.0 [facility] Comment on above: Performed By: #### 6 1405 #### [facility] [address] [place] [address], [facility] Hemoglobin (Bld) [Mass/Vol] 11.6 g/dL Low 12.0-15.0 [facility] Comment on above: Performed By: #### 6 1405 #### [facility] [address] IMMATURE GRANS 0.3 % Normal 0.0-1.0 [facility] Comment on above: Performed By: #### 6 1405 #### [facility] [address] [place] [address], [facility] Lymphocytes (Bld) [#/Vol] 2.1 10*3/uL Normal 1.2-4.0 [facility] Comment on above: Performed By: #### 6 1405 #### [facility] [address] Lymphocytes/100 WBC (Bld) 32.5 % Normal 20.0-45.0 [facility] Comment on above: Performed By: #### 6 1405 #### [facility] [address] MCH (RBC) [Entitic mass] 26.8 pg Low 27.0-33.0 [facility] Comment on above: Performed By: #### 6 1405 #### [facility] [address] MCHC (RBC) [Mass/Vol] 31.4 g/dL Low 32.0-35.0 [facility] Comment on above: Performed By: #### 6 1405 #### [facility] [address] [place] [address], [facility] MCV (RBC) [Entitic vol] 85.5 fL Normal 82.0-98.0 [facility] Comment on above: Performed By: #### 6 1405 #### [facility] [address] [place] [address], [facility] Monocytes (Bld) [#/Vol] 0.5 10*3/uL Normal 0.1-1.0 [facility] Comment on above: Performed By: #### 6 1405 #### [facility] [address] [place] [address], [facility] MONOS 6.9 % Normal 5.0-12.0 [facility] Comment on above: Performed By: #### 6 1405 #### [facility] [address] [place] [address], [facility] Neutrophils/100 WBC (Bld) 57.1 % Normal 40.0-72.0 [facility] Comment on above: Performed By: #### 6 1405 #### [facility] [address] [place] [address], [facility] Nucleated RBC/100 WBC (Bld) [Ratio] 0 % Normal 0-0 [facility] Comment on above: Performed By: #### 6 1405 #### [facility] [address] [facility] [place] [address], [facility] PLAT CNT 223 10*3/uL Normal 150-400 [facility] Comment on above: Performed By: #### 6 1405 #### [facility] [address] [facility] [place] [address], [facility] RBC (Bld) [#/Vol] 4.33 10*6/uL Normal 3.80-5.00 [facility] Comment on above: Performed By: #### 6 1405 #### [facility] [address] [place] [address], [facility] WBC (Bld) [#/Vol] 6.55 10*3/uL Normal 4.00-10.60 [facility] Comment on above: Performed By: #### 6 1405 #### [facility] [address] [place] [id number], [facility] HEMOGLOBIN A1Con 08-12-2021 Glucose [Moles/Vol] 103 mmol/L Normal [facility] Comment on above: Performed By: #### 3 1791 #### [facility] [address] [place] [address], [facility] HbA1c (Bld) [Mass fraction] 5.2 % Normal 4.0-6.0 [facility] Comment on above: Performed By: #### 3 1791 #### [address] [address], [facility] KNEE LEFT 3 Son 08-12-2021 KNEE LEFT 3 [facility] Department of Radiology [address] [place] [id number] Patient Name: ELVI MOORE : 1980 Sex: F Age: Race: White Pt. Location: Patient Status: O Ordered Date: 08/12/2021 8:40:00 AM Completed Date: 08/12/2021 08:41 AM Requesting Provider: KEVIN LANE Attending Provider: KEVIN LANE Report Copy To: SELF, REFERRED Signs & Symptoms: M25.562 Pain in left knee I10 History: Comments: evaluate Exam: KNEE LEFT 3 [facility] KNEE LEFT 3 [facility] 08/12/2021 8:42 AM CLINICAL INDICATIONS: M25.562 [...] abnormality. Small knee joint effusion. Approved by:Jody Arellanoidon110/12/2020 9:23 AM. I, Jah Juarez,have reviewed the image(s) and agree with the findings in this report. Electronically signed: Jah Juarez. Transcribed by: [id number], User Resident: JODY KEITH Electronically Signed by: JAH JUAREZ @ 08/12/2021 03:46 PM I personally read this/these film(s) with this resident Normal [facility] Comment on above: Order Comment: evalu [...] available. No qualifying data available.Electronically signed by _Dashawn GENTILE, Zhane Sterling 12/30/17 16:02 EDT Normal [facility] Otolaryngology Office/Clinic Noteon 11-18-2017 Otolaryngology Office/Clinic [...] _Zhane Tamez MD 11/18/17 16:31 EST Normal [facility] Otolaryngology Office/Clinic Note Patient seen for dispense of bilateral swim plugs. Both plugs display good fit in the ears, and patient confirmed comfort of fit. Proper insertion/removal was practiced successfully. Plan: Return if issues arise regarding swim plugs. N/C, swim plugs paid at last appointment.Electronicall y signed by _Kyara Rima Roque 11/18/17 16:04 EST Normal [facility] Otolaryngology Office/Clinic Noteon 10-28-2017 Otolaryngology Office/Clinic [...] _Kyara Rima Roque 10/28/17 16:31 EST Normal [facility] Otolaryngology Office/Clinic Note Chief Complaint post-opHistory [...] _Zhane Tamez MD 10/28/17 15:41 EST Normal [facility] Otolaryngology Office/Clinic Noteon 09-16-2017 Otolaryngology Office/Clinic [...] _Zhane Tamez MD 09/16/17 16:06 EST Normal [facility] Otolaryngology Consultationo n 04-20-2017 Otolaryngology Consultation [...] _Zhane Tamez MD 04/20/17 16:51 EDT Normal [facility] Vital Signs Date Time Vital Sign Value Performing Clinician Facility 03-07-2024 16:03-0400 Blood Pressure Location ELIZABETH VACA [facility] 03-07-2024 16:03-0400 Body temperature 97.88 [degF] ELIZABETH VACA [facility] 03-07-2024 16:03-0400 Diastolic blood pressure 80 mm[Hg] ELIZABETH STEPH [facility] 03-07-2024 16:03-0400 Heart rate 87 /min ELIZABETHLEA AKBARRY [facility] 03-07-2024 16:03-0400 Respiratory rate 16 /min ELIZABETHLEA AKBARRY [facility] 03-07-2024 16:03-0400 Systolic blood pressure 124 mm[Hg] ELIZABETH AKBARRY [facility] 01-06-2024 18:12-0400 Body height 167.64 cm MD Arleth Acharya Work Phone: [facility] 01-06-2024 18:12-0400 Body mass index (BMI) [Ratio] 25.6 kg/m2 MD Arleth Acharya Work Phone: [facility] 01-06-2024 18:12-0400 Body temperature 98.2 [degF] MD Arleth Acharya Work Phone: [facility] 01-06-2024 18:12-0400 Body weight 72 kg MD Arleth Acharya Work Phone: [facility] 01-06-2024 18:12-0400 Heart rate 93 /min MD Arleth Acharya Work Phone: [facility] 01-06-2024 18:12-0400 Respiratory rate 16 /min MD Arleth Acharya Work Phone: [facility] 01-06-2024 18:12-0400 SaO2% (BldA) [Mass fraction] 99 % MD Arleth Acharya Work Phone: [facility] 09-13-2023 12:04-0500 Blood Pressure Location Diana HAWKINS [facility] 09-13-2023 12:04-0500 Diastolic blood pressure 74 mm[Hg] Diana HAWKINS [facility] 09-13-2023 12:04-0500 Heart rate 64 /min Dianaatul HAWKINS [facility] 09-13-2023 12:04-0500 Respiratory rate 16 /min Dianaatul HAWKINS [facility] 09-13-2023 12:04-0500 Systolic blood pressure 128 mm[Hg] Diana HAWKINS [facility] 05-28-2023 11:12-0400 Body temperature 98 [degF] MD Arleth Acharya Work Phone: [facility] 05-28-2023 11:12-0400 Body weight 70.76 kg MD Arleth Acharya Work Phone: [facility] 05-28-2023 11:12-0400 Diastolic blood pressure 94 mm[Hg] MD Arleth Acharya Work Phone: [facility] 05-28-2023 11:12-0400 Heart rate 88 /min MD Arleth Acharya Work Phone: [facility] 05-28-2023 11:12-0400 Respiratory rate 16 /min MD Arleth Acharya Work Phone: [facility] 05-28-2023 11:12-0400 SaO2% (BldA) [Mass fraction] 98 % MD Arleth Acharya Work Phone: [facility] 05-28-2023 11:12-0400 Systolic blood pressure 131 mm[Hg] MD Arleth Acharya Work Phone: [facility] 05-28-2023 11:00-0400 Body height 167.64 cm MD Arleth Acharya Work Phone: [facility] 06-29-2022 09:25-0400 Blood Pressure Location Diana HAWKINS [facility] 06-29-2022 09:25-0400 Diastolic blood pressure 84 mm[Hg] Diana HAWKINS [facility] 06-29-2022 09:25-0400 Heart rate 84 /min Dianaatul HAWKINS [facility] 06-29-2022 09:25-0400 Respiratory rate 16 /min Diana HAWKINS [facility] 06-29-2022 09:25-0400 Systolic blood pressure 115 mm[Hg] Diana HAWKINS [facility] Encounters Encounter Date Encounter Type Care Provider Facility Start: 12-05-2024 End: 12[facility]05[facility] 10-19-[facility]24 ambulatory RUKHSANA MILLER [facility] Start: 08-09-2024 End: 08-09-2024 Emergency department patient visit ARLETH ACHARYA [facility] Start: 07-24-2024 End: 07-24-2024 [facility] Start: 07-19-2024 ambulatory RUKHSANA MILLER [facility] Start: 07-17-2024 End: 07-17-2024 ambulatory BILL Uribe LISSETH [facility] Start: 07-14-2024 End: 07-14-2024 ambulatory KHRIS King [facility] Start: 06-01-2024 End: 06-01-2024 ambulatory KHRIS King [facility] Start: 05-01-2024 End: 05-03-2024 [facility]: 05-01-2024 End: 05-03-2024 Subsequent hospital visit by physician Raymond Cat Scan Room [facility] CT Scan 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 Start: 03-22-2024 End: 03-22-2024 Departed Referred MD Arleth Acharya Work Phone: [facility] Start: 03-22-2024 End: 03-22-2024 ambulatory MD Arleth Acharya Work Phone: [facility] Work Phone: Start: 03-17-2024 [facility] Start: 03-07-2024 End: 03-07-2024 ambulatory ELIZABETH VACA Facility:[facility] Start: 03-07-2024 End: 03-07-2024 Patient encounter procedure ELIZABETH VACA [facility] Start: 03-06-2024 End: 03-07-2024 Emergency department patient visit [facility] Start: 03-06-2024 End: 03-07-2024 Emergency department patient visit ROTAN Jacqueline [facility] Start: 02-15-2024 End: 02-15-2024 ambulatory ARLETH M [facility] Start: 02-08-2024 End: 02-08-2024 ambulatory DIANA HAWKINS [facility] Start: 02-07-2024 ambulatory Diana HAWKINS [facility] ty:[facility] [place] Start: 01-06-2024 End: 01-06-2024 ambulatory MD Arleth Acharya Work Phone: [facility] Work Phone: Start: 01-06-2024 End: 01-06-2024 Patient encounter procedure MD Arleth Acharya Work Phone: [facility] Work Phone: Start: 12-24-2023 ambulatory RUKHSANA MILLER [facility] Start: 12-10-2023 End: 12-11-2023 Emergency department patient visit NETO VERDUZCO [facility] Start: 11-19-2023 End: 11-19-2023 ambulatory ASIA [facility] Start: 11-08-2023 End: 11-08-2023 ambulatory ASIA [facility] Start: 10-14-2023 End: 10-14-2023 Emergency department patient visit ARLETH ACHARYA [facility] Start: 10-13-2023 End: 10-15-2023 Emergency department patient visit [facility] Start: 10-13-2023 End: 10-15-2023 Emergency department patient visit [facility] Start: 10-12-2023 End: 10-12-2023 Patient encounter procedure Diana HAWKINS [facility] Start: 09-13-2023 End: 09-13-2023 Patient encounter procedure Diana HAWKINS [facility] Start: 06-28-2023 ambulatory Osiris King Yancinahun Facility:[facility] Start: 05-28-2023 End: 05-28-2023 ambulatory MD Arleth Acharya Work Phone: [facility] Work Phone: Start: 05-28-2023 End: 05-28-2023 Registered Recurring MD Arleth Acharya Work Phone: [facility] Work Phone: Start: 01-25-2023 End: 01-25-2023 ambulatory GENNA HEATON Facility:[facility] Start: 01-21-2023 End: 01-22-[address] ARLETH ACHARYA . Facility:[facility] Start: 01-04-2023 End: 01-04-2023 Patient encounter procedure Diana HAWKINS [facility] Start: 10-10-[address] ARLETH ACHARYA . Facili ty:[facility] Start: 10-06-2022 End: 10-06-[address] ARLETH ACHAYRA . Facility:[facility] Start: 09-30-2022 End: 10-01-[address] ARLETH ACHARYA . Facility:[facility] Start: 09-21-2022 End: 09-21-[address] ARLETH ACHARYA . Facility:[facility] Start: 08-27-2022 Encounter for preprocedural laboratory examination DR DIANA HAWKINS . [facility] Start: 08-27-2022 End: 08-27-[address] [...] Patient encounter procedure Diana HAWKINS [facility] Start: 06-11-[address] Facility :[facility] Start: 06-09-2022 End: 06-11-2022 ambulatory Kevin Geocxiang Facility:[facility] Start: 06-03-2022 End: 06-03-2022 Emergency department patient visit ARLETH ACHARYA Facility:[facility] Start: 06-01-2022 End: 06-01-2022 Evaluation and management of inpatient Kevin Geanyi Facility:[facility] Start: 05-26-2022 End: 05-27-2022 ambulatory Kevin Geocxiang Facility:[facility] Start: 05-26-2022 End: 05-27-2022 Encounter for preprocedural laboratory examination Kevin Domingo Facility:[facility] Start: 05-16-2022 ambulatory NICK YOO Facility: Start: 05-01-2022 End: 05-02-2022 ambulatory NICK YOO Facility: Start: 04-29-2022 End: 04-29-2022 ambulatory ENEDINA IVEY . Facility: Start: 04-16-2022 End: 04-17-[address] ARLETH ACHARYA . Facility: Start: 04-07-2022 End: 04-08-2022 ambulatory Kevin Geocxiang Facility:[facility] Start: 03-24-2022 End: 03-25-2022 ambulatory REFERRED SELF Facility:[facility] Start: 02-12-2022 End: 02-13-2022 ambulatory Kvein Geocxiang Facility:[facility] Start: 01-09-2022 End: 01-10-2022 ambulatory REFERRED SELF Facility:[facility] Start: 12-26-2021 End: 12-27-2021 ambulatory REFERRED SELF Facility:[facility] Start: 12-09-2021 End: 12-10-2021 ambulatory REFERRED SELF Facility:[facility] Start: 10-30-2021 End: 10-31-2021 ambulatory Kevin Geocxiang Facility:[facility] Start: 10-11-2021 End: 11-11-2021 ambulatory Kevin Nassarxiang Facility:[facility] Start: 10-07-2021 End: 10-08-2021 ambulatory Kevin Nassarxiang Facility:[facility] Start: 10-06-2021 End: 10-11-2021 ambulatory Kevin Nassaring Facility:[facility] Start: 08-12-2021 End: 08-13-2021 ambulatory REFERRED SELF Facility:[facility] Start: 2017 End: 12-31-2017 Ambulatory ZHANE Andrey TAMEZ Facility:[facility] Start: 11-18-2017 End: 11-19-2017 Ambulatory ZHANE W TAMEZ Facility:[facility] Start: 10-28-2017 End: 10-29-2017 Ambulatory Rima Sparrow Facility:[facility] Start: 10-14-2017 End: 10-15-2017 Ambulatory ZHANE W DASHAWN Facility:[facility] Start: 09-16-2017 End: 09-17-2017 Ambulatory ZHANE W TAMEZ Facility:[facility] Start: 06-24-2017 Ambulatory ZHANE W TAMEZ Facility :[facility] Start: 04-20-2017 End: 04-21-2017 Ambulatory ZHANE W TAMEZ Facility:[facility] Procedures Date Procedure Procedure Detail Performing Clinician [...] above: Performed By: #### 3 1791 #### [address] Appendectomy Diana HAWKINS Arthroplasty of knee Diana HAWKINS Arthroscopy of knee Diana HAWKINS Bypass of stomach Diana GRIMES Cholecystectomy Diana AGUIRRE RS Hysterectomy Diana ROSS Implantation of temp orary spinal cord stimulator Diana ROSS Tonsillectomy Diana HAWKINS Plan of Treatment Date Care Activity Detail Author Start: 05-11-2024 Influenza vaccination Flu vaccine (# 1) [facility] Start: 06-11-2023 COVID-19 Vaccine ( season) COVID-19 Vaccine ( season) [facility] Start: 05-28-2023 [facility] Start: 2021 Lipid panel Lipids [facility] Start: 2021 Screening for malign ant neoplasm of breast Breast cancer screen [facility] Start: 07-10-2021 DTaP/Tdap/Td vaccine (2 - Td or Tdap) DTaP/Tdap/Td vaccine (2 - Td or Tdap) [facility] Start: 2016 Diabetes screen Diabetes screen [facility] Start: 12-31-1999 Hepatitis C screening Hepatitis C sc reen [facility] Start: 1996 HIV screening HIV screen [facility] Start: 1993 Depression Screen Depression Screen [facility] Start: 1982 Varicella vaccine (1 of 2 - 2-dose childhood series) Varicella vaccine (1 of 2 - 2-dose childhood series) [facility] Start: 1981 Hepatitis B vaccine (1 of 3 - 3-dose series) Hepatitis B vaccine (1 of 3 - 3-dose series) [facility] End: 05-01-2024 CT Neck W contrast IV [facility] Work Phone: Comment on above: 1 Occurrences starti ng 05/01/2024 until 05/01/2024 Iron binding capacit y [Mass/volume] in Serum or Plasma [facility] Iron saturation [Mas s Fraction] in Serum or Plasma [facility] Immunizations Immunization Date Immunization Notes Care Provider Wicho mckeon 07-29-2022 influenza virus vacc ine, unspecified formulation ELIZABETH VACA [facility] 07-29-2022 SARS-CoV-2 (COVID-19 ) [id number] ELIZABETH VACA [facility] 10-08-2021 SARS-CoV-2 (COVID-19 ) mRNA BNT-162b2 vax Diana HAWKINS [facility] 01-30-2021 SARS-CoV-2 (COVID-19 ) mRNA BNT-162b2 vax Diana HAWKINS [facility] 01-09-2021 SARS-CoV-2 (COVID-19 ) mRNA BNT-162p6 vax Diana HAWKINS [facility] 07-11-2020 influenza virus vacc ine, unspecified formulation Diana HAWKINS [facility] 07-03-2020 influenza virus vacc ine, unspecified formulation Diana HAWKINS [facility] 07-18-2019 influenza virus vacc ine, unspecified formulation Diana HAWKINS [facility] 07-08-2018 influenza virus vacc ine, unspecified formulation Diana HAWKINS [facility] 01-01-2016 pneumococcal polysaccharide vaccine, 23 valent Diana HAWKINS [facility] 09-17-2013 influenza virus vacc ine, unspecified formulation Diana HAWKINS [facility] 07-10-2011 tetanus toxoid, redu demar diphtheria toxoid, and acellular pertussis vaccine, adsorbed Diana HAWKINS [facility] Payers Date Payer Category Payer Unknown [id number] Self-pay 2017 Unknown 2012 Unknown [id number] 2012 Unknown [id number] 1981 Unknown [id number] 2.16.8 40.1.259678.3.579.2.647 1981 Unknown [id number] 2.16.8 40.1.282551.3.579.2.647 1981 Unknown [id number] 2.16.8 40.1.442886.3.579.2.647 1981 Unknown [id number] 2.16.8 40.1.546624.3.579.2.647 1981 Unknown [id number] 2.16.8 40.1.357478.3.579.2.647 1981 Unknown [id number] 2.16.8 40.1.766144.3.579.2.647 1981 Unknown [id number] 2.16.8 40.1.477054.3.579.2.647 1981 Unknown [id number] 2.16.8 40.1.536612.3.579.2.647 1981 Unknown [id number] 2.16.8 40.1.137838.3.579.2.647 1981 Unknown [id number] 2.16.8 40.1.158247.3.579.2.647 1981 Unknown [id number] 2.16.8 40.1.092508.3.579.2.647 1981 Unknown [id number] 2.16.8 40.1.983906.3.579.2.647 1981 Unknown [id number] 2.16.8 40.1.271609.3.579.2.647 1981 Unknown [id number] 2.16.8 40.1.587436.3.579.2.647 1981 Unknown [id number] 2.16.8 40.1.635013.3.579.2.647 1981 Unknown [id number] 2.16.8 40.1.590742.3.579.2.647 1981 Unknown [id number] 2.16.84 0.1.764946.3.579.2.593 1981 Unknown [id number] 2.16.84 0.1.534540.3.579.2.593 1981 Unknown [id number] 2.16.84 0.1.599697.3.579.2.593 1981 Unknown [id number] 2.16.84 0.1.869909.3.579.2.593 1981 Unknown [id number] 2.16.84 0.1.857534.3.579.2.593 1981 Unknown [id number] 2.16.84 0.1.333557.3.579.2.593 1981 Unknown [id number] 2.16.84 0.1.072942.3.579.2.593 1981 Unknown [id number] 2.16.84 0.1.119467.3.579.2.593 1981 Unknown [id number] 2.16.84 0.1.177571.3.579.2.593 1981 Unknown [id number] 2.16.84 0.1.003661.3.579.2.593 1981 Unknown [id number] 2.16.84 0.1.974663.3.579.2.593 1981 Unknown [id number] 2.16.84 0.1.468492.3.579.2.593 1981 Unknown [id number] 2.16.84 0.1.015634.3.579.2.593 1981 Unknown [id number] 2.16.84 0.1.284304.3.579.2.593 1981 Unknown [id number] 2.16.84 0.1.196930.3.579.2.593 1981 Unknown [id number] 2.16.84 0.1.573841.3.579.2.593 1981 Unknown [id number] 2.16.84 0.1.115498.3.579.2.593 1981 Unknown [id number] 2.16.84 0.1.790821.3.579.2.593 1981 Unknown [id number] 2.16.8 40.1.236656.3.579.2.173 1981 Unknown [id number] 2.16. 840.1.394952.3.579.2.175 1981 Unknown [id number] 2.16.8 40.1.986138.3.579.2.1286 1981 Unknown [id number] 2.16.8 40.1.707598.3.579.2.1286 1981 Unknown [id number] 2.16.8 40.1.775507.3.579.2.1286 1981 Unknown [id number] 2.16.8 40.1.760228.3.579.2.1286 1981 Unknown [id number] 2.16.8 40.1.900709.3.579.2.1286 1981 Unknown [id number] 2.16.8 40.1.192527.3.579.2.1286 1981 Unknown [id number] 2.16.8 40.1.443710.3.579.2.1286 1981 Unknown [id number] 2.16.8 40.1.620647.3.579.2.128 1981 Unknown [id number] 2.16.8 40.1.684778.3.579.2.1286 1981 Unknown [id number] 2.16.8 40.1.676970.3.579.2.1286 1981 Unknown [id number] 2.16.84 0.1.189272.3.579.2.1286 1981 Unknown [id number] 2.16.84 0.1.351447.3.579.2.1286 1981 Unknown [id number] 2.16.84 0.1.150565.3.579.2.1286 1981 Unknown [id number] 2.16.84 0.1.501642.3.579.2.1286 1981 Unknown [id number] 2.16.8 40.1.383999.3.579.2.727 1981 Unknown [id number] 2.16.8 40.1.530972.3.579.2.727 1959 Self-pay [id number] Unknown [id number] 2.16.8 40.1.099957.3.579.2.531 Unknown [id number] 2.16.8 40.1.214402.3.579.2.531 Unknown [id number] 2.16.8 40.1.674340.3.579.2.531 Social History Date Type Detail Facility Start: 06-29-2022 End: 04-18-2024 Tobacco smoking status Ex-smoker (finding) [facility] Start: 04-18-2024 Sex Assigned At Female [facility] Start: 1980 Sex Assigned At Female F [facility] Tobacco smoking status Never [facility] End: 06-11-2016 History of tobacco use Current smoker [employer] End: 06-11-2016 History of tobacco use Cigarette Smoker [employer] History of tobacco use Passive smoker [employer] Start: 04-18-2024 Tobacco use and exposure Smokeless tobacco non-user [employer] Start: 07-09-2024 Alcohol intake Current non-dr finisher plate of alcohol (finding) [facility] Start: 04-18-2024 History of Social function [facility] Start: 1980 Sex Assigned At Not on file B ON [facility] Functional Status Date Assessment Result Facility 03-07-2024 Functional Status N/A [facility] 10-12-2023 Functional Status N/A [facility] 09-13-2023 Functional Status N/A [facility] 06-29-2022 Functional Status N/A [facility] Clinical Notes 06-16-2022 to 10-19-2024 Note Date & Type Note Facility 10-19-2024 Note Pain Medicine [place] [id number] Subjective Patient ID: Elvi Moore is a 43 y.o. female. Date:10/19/24 10/19/24 CC: Chief Complaint Patient presents with Med Management No bottles for pill count Patient educated on bringing bottles to every visit Follow-up Left knee pain Pain Assessment Pain Assessment: 0-10 Pain Score: 5 - Moderate pain Pain Type: Chronic pain Pain Location: Knee Pain Orientation: Left Pain Descriptors: Aching, Throbbing, Numbness, Tingling Pain Frequency: Constant/continuous Pain Onset: Ongoing Date Pain First Started: (2-3 years) Clinical Progression: Not changed Aggravating Factors: Walking, Standing, Stairs Pain Interventions: Medication (See MAR), Cold pack, Heat applied Response to Interventions: Medication is effective, [facility] 43 year old female here follow up [...] the night due to her pain. She is frustrated due to her pain being increased. She is affecting her mood due to her chronic knee pain and aching. She is not noticing no difference in increasing her lyrica and would like to try to wean off. She is seeing ortho for loosening of her hardware and has a follow up with them coming up to discuss further. SUBJECTIVE: Elvi Moore is a 43 y.o. female who presents for follow up with a chief complaint of left knee pain. Since last visit patient reports pain is stable. Most recently patient underwent a xray of her stimulator to verify lead position which are still in place despite retention loop lost. She is working with [employer] to aid in programming options but overall [...] Rash Other reaction(s): Unknown Objective BP (!) 148/101 Pulse 103 Ht 1.676 m (5' 6 ) Wt 70.3 kg (155 lb) BMI 25.02 kg/m??? General: well developed, well nourished, no acute distress Head: normocephalic and atraumatic Eyes: anicteric sclera, normal eye movements Ears: normal hearing Chest/Lungs: quiet, easy, unlabored breathing. Heart: no clubbing, cyanosis, edema Skin: intact without suspicious lesions or rashes Neuropsych: alert and cooperative; normal mood/affect articulates well Gait: normal Left knee pain with movement and palpation. Assessment/Plan Diagnosis Plan 1. Neuralgia and neuritis GENICULAR NERVE BRANCHES, W/ IMAG LEFT FL in Pain Clinic 2. S/P left knee arthroscopy 3. Complex regional pain syndrome type 1 of left lower extremity pregabalin (Lyrica) 50 mg capsule HYDROcodone-acetaminophen ([place]) 5-325 mg tablet DULoxetine (Cymbalta) [address] capsule 4. Other chronic postprocedural pain pregabalin (Lyrica) 50 mg capsule HYDROcodone-acetaminophen ([place]) 5-325 mg tablet 5. Presence of neurostimulator Discussed chronic pain, medication use, treatment goals. Medication risk and benefits discussed. The Spine Diagram and Test results were used to explain the condition. PLAN: 1. Continue [place] 5/325mg TID PRN for severe pain 8-10 - Change to lyrica 50mg BID to wean off patient wants to see about weaning off. -ordered cymbalta 30mg at night 2. MAPS/OARRS pulled and reviewed. -ORT/COT 07/2024 -ODS-07/2024 4. Order left genicular nerve block under fluoroscopy 3. Lumbar xrays reviewed with patient and reassured of proper lead placement and no migration issues. 4. Continue optimization of neurostimulation 5. RTC after procedure and for medication management All questions are ans (more content not included)... [facility] 07-24-2024 Note Orthopedic Surgery Subjective New Patient [...] sees pain management and is currently taking [place] Unity every 8 hours and Lyrica. She also [...] TKA with beltran (more content not included)... [facility] 07-19-2024 [place] [address] Subjective Patient ID: Elvi Moore is a [...] retention loop lost. She is working with [employer] to aid in programming options but overall [...] to explain the condition. PLAN: 1. Continue [place] 5/325mg TID PRN for severe pain 8-10 [...] and verbal health teaching given to patient, patien (more content not included)... [facility] 06-01-2024 Note HPI 43 yo female with [...] scan Blood work Appointment with Dr Burkett [facility] 03-17-2024 [place] [address] Subjective Patient ID: Elvi Moore is a [...] retention loop lost. She is working with [employer] to aid in programming options but overall [...] type 1 of left lower extremity HYDROcodone-acetaminophen ([place]) 5-325 mg tablet gabapentin (Neurontin) 300 mg capsule 2. Other chronic postprocedural pain HYDROcodone-acetaminophen ([place] Unity) 5-325 mg tablet gabapentin (Neurontin) 300 mg capsule Discussed chronic pain, medication use, treatment goals. Medication risk and benefits discussed. The Spine Diagram and Test results were used to explain the condition. PLAN: 1. Continue [place] 5/325mg TID PRN for severe pain 8 [...] to compliance m (more content not included)... [facility] 03-07-2024 Hospital Discharge instructions Patient Education [...] include: ?8 oz (237 mL) of milk, uabwpxr-mbwrhhxptzmf-wghtx milk, and calcium-fortifiedfruit juice. Calcium-fortified means that [...] ?Spinach (cooked), rhubarb, beets, sweet potatoes, and Sammarinese chard. ?Peanuts. ?Potato chips, malian fries, and baked potatoes with skin on. ?Nuts and nut products. ?Chocolate. If you regularly take a diuretic medicine, make sure to eat at least 1 or 2 servings of fruits or vegetables that are high in potassium each day. These include: ?Avocado. ?Banana. ?York, prune, carrot, or tomato juice. ?Baked potato. [...] magnesium, fish oil, or vitamin B6. Take yfyj-wrn-jcgcpda and prescription medicines only as told by [...] Lasagna. Frozen meals. Potato chips. Divehi fries. The items listed above may not [...] provider. Document Revised: 01/07/2023 Document Reviewed: 01/07/2023 [email or web address] Patient Education 2022 [employer] Follow Up Care 01/26/2024 10:43:28 With:ELIZABETH VACA PA-C, URL Address: [address] [address] [phone] When: Unknown [facility] 12-24-2023 [place] [address] Subjective Patient ID: Elvi Moore is a [...] Interventions: Medication (See MAR) Response to Interventions: West Unity - effective, SCS effective 42 year old female here follow up for chronic left leg pain. Her pain is a 7/10 and is worse with standing and it is in her left knee. She states she has been working with [employer] to make adjustments to get more coverage [...] retention loop lost. She is working with [employer] to aid in programming options but overall [...] CYSTOSCOPY HYSTERECTOMY INNER EAR SURGERY JOINT REPLACEMENT 8/22/22 KNEE ARTHROPLASTY Left 06/01/2022 revision KNEE ARTHROPLASTY [...] type 1 of left lower extremity HYDROcodone-acetaminophen ([place] Unity) 5-325 mg tablet gabapentin (Neurontin) 300 mg capsule 2. Other chronic postprocedural pain HYDROcodone-acetaminophen ([place]) 5-325 mg tablet gabapentin (Neurontin) 300 mg capsule Discussed chronic pain, medication use, treatment goals. Medication risk and benefits discussed. The Spine Diagram and Test results were used to explain the condition. PLAN: 1. Continue [place] 5/325mg TID PRN for severe pain 8-10 [...] to compliance monit (more content not included)... [facility] 10-12-2023 Hospital Discharge instructions Patient Education [...] Address: [facility] [address] [place] [address]- Business (1) When:01/11/2024 10:36:33 Comments:With a stone metabolic workup [facility] 09-13-2023 Hospital Discharge instructions Patient Education 09/13/2023 [...] including vitamins, herbs, eye drops, creams, and jwyx-wxm-hdvyigb medicines. Any problems you or family members [...] provider tells you to take them. Taking eqes-kyk-ezeayvh medicines, vitamins, herbs, and supplements. Tests You [...] Follow these instructions at home: Medicines Take grqp-jiv-wsgpecf and prescription medicines only as told by [...] provider. Document Revised: 06/10/2022 Document Reviewed: 05/09/2021 [employer] Patient Education 2022 [employer] 09/13/2023 12:55:19 Hematuria, Adult Hematuria, Adult Hematuria [...] Follow these instructions at home: Medicines Take zkey-kxf-lhroyyx and prescription medicines only as told by [...] or the blood stops without treatment. Take sezx-ogd-rpzbsjc and prescription medicines only as told by your health care provider. Drink enough fluid to keep your urine pale yellow. This information is not intended to replace advice given to you by your health care provider. Make sure you discuss any questions you have with your health care provider. Document Revised: 05/28/2021 Document Reviewed: 05/28/2021 [employer] Patient Education 2022 [employer] Follow Up Care 08/20/2023 11:43:21 With:ROSS GENTILE, Diana Goss, URL Address: [facility] [address] , [place] [address]- [phone] When: Unknown Comments:sched cysto [facility] Monique 01-04-2023 Hospital Discharge instructions Patient Education 01/04/2023 [...] include: ?Spinach. ?Rhubarb. ?Beets. ?Potato chips and malian fries. ?Nuts. If you regularly take a diuretic medicine, make sure to eat at least 1 2 fruits or vegetables high in potassium each day. These include: ?Avocado. ?Banana. ?York, prune, carrot, or tomato juice. ?Baked potato. [...] 01/22/2012 Document Revised: 01/17/2020 Document Reviewed: 09/07/2017 [employer] Patient Education 2020 [employer] Follow Up Care 10/29/2022 14:23:18 With:ROSS GENTILE, Diana Goss, URL Address: [facility] [address] , [place] [address]- When: Unknown [facility] 06-29-2022 Evaluation + Plan note Diagnostic Tests [facility]) 06/29/22 [facility] 06-29-2022 Hospital Discharge instructions Patient Education [...] Follow these instructions at home: Medicines Take qxhv-mct-okldpkx and prescription medicines only as told by [...] or the blood stops without treatment. Take amoe-vtc-zvnlyit and prescription medicines only as told by your health care provider. Drink enough fluid to keep your urine clear or pale yellow. This information is not intended to replace advice given to you by your health care provider. Make sure you discuss any questions you have with your health care provider. Document Released: 09/27/2006 Document Revised: 02/21/2020 Document Reviewed: 10/30/2017 [employer] Patient Education 2020 [employer] Follow Up Care 05/06/2022 15:50:29 With:ROSS GENTILE, Diana Goss, URL Address: [facility] [address] [place] [address] [phone] When: Unknown [facility] 06-16-2022 Note MR#: [id number] I [facility] Pt. Name: Elvi Moore Admitted: 06/01/2022 [...] Cavazos MD Date Trans: 06/16/2022 02:27 P/mmo [id number] cc: Arleth Acharya M.D. [address] [id number] [facility] Evaluation + Plan note Future Appointments Appointment Date:01/11/2023 01:45:00 PM Scheduled Provider:Diana HAWKINS MD Location:[facility] Appointment Type:URO Office Visit [facility] Evaluation + Plan note Future Appointments Appointment Date:02/07/2024 10:15:00 AM Scheduled Provider:Diana HAWKINS MD Location:[facility] Appointment Type:URO Office Visit [facility] Evaluation note No assessment inform ation available [facility] Work Phone: Evaluation note Diagnosis Onset Date Left ankle sprain noneactive [facility] Work Phone: Evaluation note* Diagnosis Pleomorphic adenoma of parotid gland documented in this encounter [facility] course Narrative No data available for this section [facility] progress note No data available for this section [facility] Summary Purpose Family History No Family [...] Unknown Reason for Visit Left ankle sprain Reason for Referral Specialty Diagnoses / Procedures Referred By Jaspreet negron Referred To Contact Radiology Diagnoses Pleomorphic adenoma of parotid gland Procedures CT SOFT TISSUE NECK W CONTRAST Bill Brown MD [address] [place] [address] Referral ID Status Reason Start Date Expiration Date Visits Re quested Visits Authorized [id number] Closed 05/01/2024 07/29/2024 1 1 Additional Source Comments INFORMATION SOURCE (unrecogn ized section and content) DATE CREATED AUTHOR 03/31/2018 [facility] DATE CREATED AUTHOR AUTHOR'S ORGANIZ ATION 06/23/2022 [facility] DATE CREATED AUTHOR AUTHOR'S ORGANIZ ATION 01/28/2023 [facility] DATE CREATED AUTHOR AUTHOR'S ORGANIZ ATION 03/31/2024 [facility] DATE CREATED AUTHOR AUTHOR'S ORGANIZ ATION 05/04/2024 [facility] DATE CREATED AUTHOR AUTHOR'S ORGANIZ ATION 07/19/2024 [facility] DATE CREATED AUTHOR AUTHOR'S ORGANIZ ATION 08/10/2024 [facility] DATE CREATED AUTHOR AUTHOR'S ORGANIZ ATION 10/27/2024 [facility] DATE CREATED AUTHOR AUTHOR'S ORGANIZ ATION 12/06/2024 [facility] Care Team (unrecognized sect ion [...] catarinaer Active Osiris Calderón APRN Attending Provider Actvazquez argueta Team Status: Inactive Member Role Status Dates Carissa Pettit MD Attending Provider Active Star t: March 22, 2024 End: March 22, 2024 Cotton Weigher Relationship Specialty Start Date End Date Arleth Acharya MD [address] [place] [address] PCP - General 12/30/14 Goals (unrecognized section and content) Goals may be documented in a n alternate section Reason for Visit (unrecogniz ed section and content) Specialty Diagnoses / Procedures Referred By Contac t Referred To Contact Radiology Diagnoses Pleomorphic adenoma of parotid gland Procedures CT SOFT TISSUE NECK W CONTRAST Bill Brown MD [address] [address] Referral ID Status Reason Start Date Expiration Date Visits Re quested Visits Authorized [id number] Closed 05/01/2024 07/29/2024 1 1 FOR RECORDS PERTAINING TO PATIENTS WHO ARE [...] BE BASED ON THE PRIMARY CLINICAL RECORDS. [facility] [employer] [facility]. provides no warranty or guarantee of the accuracy or completeness of information in this document.
== END 2024-12-07 10:27 | disposition home or self-care (01) ==
LOC: RAD 10:26
PROVIDERS: PCP Family Medicine; Visit Provider Family Medicine
DX: N20.0 Calculus of kidney (principal)
CPT/HCPCS: 74018

== ENCOUNTER 2024-12-14 15:27 | Outpatient (OUT) | payer OTHER, SELFPAY ==
[2024-12-14 15:41] LABS: Basophils Percent Auto 0.2 % (0.2-2.0); Eosinophils Absolute Auto 0.1 10^3/uL (0.0-0.7); Eosinophils Percent Auto 1.5 % (0.9-7.0); Hematocrit 33.6 % (36.0-48.0); Hemoglobin 10.4 g/dL (12.0-16.0); Lymphocytes Percent Auto 41.5 % (20.5-60.0); Mean Corpuscular Hemoglobin 25.2 pg (26.7-34.0); Mean Corpuscular Volume 81.4 fL (81.0-99.0); Mean Platelet Volume 9.6 fL (9.5-13.5); Monocytes Absolute Auto 0.4 10^3/uL (0.3-0.8); Monocytes Percent Auto 8.4 % (1.7-12.0); Neutrophils Absolute Auto 2.3 10^3/uL (1.4-6.5); Neutrophils Percent Auto 48.4 % (43.0-75.0); Platelet Count 212 10^3/uL (150-450); Red Blood Count 4.13 10^6/uL (4.20-5.40); Red Cell Distribution Width 15.1 % (11.0-15.0); White Blood Count 4.8 10^3/uL (4.0-11.0)
--- OUTSIDE RECORDS SUMMARY | 2024-12-14 15:47 | XMS_ITS | CCD ---
Author Organization [facility] Care Team Providers Care Retail Representative Name Role Phone TAMEZ ZHANE W Unavailable Unavailable Hoy, Arleth Martinez [...] Primary Care Unavailable Gehling, Kevin Attending Unavailable Kevin Lane Admitting Unavailable KAVITHAYARLETH Primary Care Unavailable HOY ARLETH Referring Unavailable MadayingPepeel Referring Unavailable Kevin Lane Attending Unavailable Madaying, Kevin Admitting Unavailable SELF, REFERRED Primary Care Unavailable MadayingPepeel Referring Unavailable Kevin Lane Attending Unavailable Gehling, Kevin [...] Primary Care Unavailable Geocing, Kevin Admitting Unavailable Kevin Lane Attending Unavailable HOY ARLETH Primary Care Unavailable HOYBETHARLETH Referring Unavailable Kevin Lane Attending Unavailable Madaying, Kevin Admitting Unavailable SELF, REFERRED Primary Care Unavailable SELF, REFERRED Referring Unavailable SELF, REFERRED Primary Care Unavailable FORSHEY, JORDEN D Admitting Unavailable FORSHEY, JORDEN D Attending Unavailable SELF, REFERRED Referring Unavailable SELF, REFERRED Primary Care Unavailable Kevin Lane Attending Unavailable Madaying, Kevin Admitting Unavailable SELF, REFERRED Referring Unavailable Arleth Acharya Primary Care Physician [phone] ., [address] ORTIZ Consulting Unavailable FREDO, [...] REINOSO Attending Unavailable HOY ., DR REINOSO Admalhponse Unavailable FREDO, NICK Primary Care Unavailable HOY [...] Unavailable MD Arleth Acharya Primary Care Provider [phone] MD Arleth Acharya Referring Provider DO Calderón Attending Provider MD Arleth Acharya Primary Care Provider [phone] DO Antonio Attending Provider MD Harry Pettit V Attending Provider Harry Pettit V Attending Unavailable Harry Pettit V Admitting Unavailable Rianna Antonio Attending [...] ARLETH M Primary Care Unavailable Diana HAWKINS Attending Unavailable ELIZABETH VACA Attending Unavailable Arleth Acharya MD Primary Care Provider [phone] DIANA HAWKINS Referring Unavailable HOY, ARLETH M Primary Care Unavailable HOY, ARLETH M Referring Unavailable HOY, ARLETH M Primary Care Unavailable HOY, ARLETH M Primary Care Unavailable LATONYA, BRYAN Attending Unavailable LATONYA, BRYAN Attending Unavailable LATONYA, BRYAN Referring Unavailable HOY, ARLETH M Primary Care Unavailable HOY, RALETH M Primary Care Unavailable SHERYL ESPINOZA Attending Unavailable HOY, ARLETH M Primary Care Unavailable RUSSELL PEREZ Attending Unavailable CARMEN, CURLY Attending Unavailable MORALES, CURLY Referring Unavailable ANGELA, RUKHSANA Referring Unavailable KHRIS BUCHANAN A Attending Unavailable ANGELA, RUKHSANA Attending Unavailable ANGELA, RUKHSANA Attending Unavailable ANGELA, RUKHSANA Attending Unavailable MONIQUE BURKETT Attending Unavailable ANGELA, RUKHSANA Attending Unavailable SHARAN BUCHANANORY A Referring Unavailable SHARAN BUCAHNANORY A Referring Unavailable Allergies Allergy Classification Reported Allergen(s) Allergy Type Date of Onset Reaction(s) Facility NSAIDs (1 source) Ketorolac; Translations: [ketorolac] Drug Allergy Unknown (qualifier value) [facility] Opioid Agonists (1 source) Meperidine; Translations: [meperidine] Drug Allergy [facility] Prochlorperazine (1 source) Prochlorperazi ne; Translations: [prochlorperaz ine] Drug Allergy Hallucinations (finding) [facility] (8 sources) ketorolac; Translations: [Toradol] Drug Allergy 05-29-20 15 Unknown (qualifier value) [facility] Repository (6 sources) meperidine; Translations: [Demerol HCl] Drug Allergy [facility] Repository (2 sources) Meperidine Drug Allergy 08-01-20 13 [facility] Repository (1 source) Desonide Drug Allergy [facility] Repository (6 sources) Ketorolac; Translations: [ketorolac] Drug Allergy 11-22-19 22 Unknown Reaction [facility] (8 sources) Meperidine; Translations: [meperidine] Drug Allergy 08-01-20 13 Rash [facility] (6 sources) Prochlorperazi ne; Translations: [prochlorperaz ine] Drug Allergy 02-12-20 23 Hallucinations (finding), Hallucinations [facility] (1 source) No Known Medication Allergies; Translations: [No Known Medication Allergies] Propensity to adverse reactions (disorder) [facility] Repository (2 sources) Ketorolac; Translations: [KETOROLAC TROMETHAMINE] Drug Allergy 08-22-20 15 Rash [facility] (1 source) Desonide; Translations: [DESONIDE] Drug Allergy 01-09-20 21 [facility] Repository Medications Current Medications Medication Drug [...] tablet (8 sources) Opioid Agonist Start: 09-24-2023 Holly 325 mg-5 mg oral tablet 1 tab(s), Oral, q12hr for pain, 20 tab(s), Refill(s) 0, 1 to 2 tabs every 4 to 6 hours as needed for pain, Pain, [id number], 167, cm, 09/13/23 12:07:00 EST, Height/Length Dosing, 70.5, kg, 09/13/23 12:07:00 EST, Weight Dosing Start Date: 09/24/23 Status: Ordered Start: 05-27-2023 take 1 tablet by mary th twice daily Hydrocodone-Acetaminophen Active 1 TAB P O Twice daily May 27, 2023 12:00am Start: 07-27-2022 Holly 325 mg-5 mg oral tablet 1 tab(s), Oral, BID Pain 8-10, 20 tab(s), Refill(s) 0, [id number], 167, cm, 06/29/22 9:28:00 EDT, Height/Length Dosing, 69, kg, 06/29/22 9:28:00 EDT, Weight Dosing Start Date: 07/27/22 Status: Ordered Start: 06-29-2022 take 1 tablet by mary th every six hours Holly 325 mg-5 mg oral tablet tab(s), Or [...] q12hr, # 20 cap(s), Refills(s) 0, Pharmacy: [facility] #[id number], 167, cm, 09/13/23 12:07:00 EST, Height/Length Dosing, [...] (1 source) Antiarrhythmic, Amide Local Anesthetic Start: 022 apply 1 dose transdermal route once daily [...] mouth 2 times daily 0 Active nystatin 351002 unt/ml oral suspension (1 source) Polyene Antifungal nystatin (MYCOSTATIN ) 404961 UNIT/ML suspension Take by mouth 0 Active ondansetron 4 mg oral tablet (1 source) Serotonin-3 Receptor Antagonist Start: take 1 tablet by mouth every four [...] tablet (10 sources) Proton Pump Inhibitor Start: take 1 tablet by mouth once daily Pantoprazole (Protonix) 40 mg Tablet,Delayed Release (Dr/Ec) Active 40 MG PO Daily May 27, 2023 12:00am Start: 10-23-2014 take 40 mg by mouth once daily pantoprazole 40 mg, Oral, Daily, Refills(s) 0, Control of stomach acid Start Date: 10/23/14 Status: Ordered take 1 tablet by mary th once daily pantoprazole (PROTONIX) 20 MG tablet Take 1 tablet by mouth daily 0 Active phenazopyridine hydrochloride 100 mg oral tablet (1 source) take 1 tablet by mouth three times daily as needed phenazopyridine (PYRIDIUM) 100 MG tablet Take 1 tablet by mouth 3 times daily as needed 0 Active promethazine hydrochloride 25 mg oral tablet (10 sources) Phenothiazine Start: take 1 mg rectal route every six [...] 09-10-2022 06-26-2022 Chronic Calculus of urinary tract (19 sources) Kidney stone; Translations: [Calculus of kidney] Onset: 02-25-2018 Episodic Coagulation and hemorrhagic disorders (1 source) Hereditary factor VIII deficiency; 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] Onset: 06-28-2023 Chronic Complications of surgical procedures or medical care (4 sources) Iron deficiency anemia; Translations: [Other complications of other bariatric procedure] Onset: 06-28-2023 10-27-2023 Episodic E Codes: Fall (1 source) Unspecified fall, initial encounter; Translations: [Unspecified fall, initial encounter] Onset: 01-06-2024 Episodic Essential hypertension (1 source) Essential (primary) [...] Onset: 12-09-2021 Chronic Other aftercare (1 source) snf (current) use of aspirin; Translations: [CASHIER CHECKER (CURRENT) USE OF ASPIRIN] Onset: 06-03-2022 Episodic Other aftercare (2 sources) Other usp (current) drug therapy; Translations: [OTHER CASHIER CHECKER (CURRENT) DRUG THERAPY] Onset: 08-12-2021 Episodic Other [...] Translations: [Unspecified abdominal pain] Onset: 04-29-2022 Episodic Complication of device; implant or graft (7 sources) Pain due to internal orthopedic prosthetic devices, implants and grafts, initial encounter; Translations: [Instability of internal left knee prosthesis, initial encounter] Onset: 06-01-2022 Episodic Deficiency and other anemia (1 source) Other iron deficiency anemias; Translations: [Other iron deficiency anemias] Onset: 06-28-2023 Episodic Genitourinary symptoms and ill-defined conditions (20 [...] parotid gland] 05-01-2024 Episodic Other gastrointestinal disorders (1 source) Constipation, unspecified; Translations: [Constipation, unspecified] Onset: 08-09-2024 Episodic Other non-traumatic joint disorders (6 sources) [...] Test Name Value Interpretation Reference Range Facility CBC AND AUTO DIFFon 12-08-19 25 ABSOLUTE BASOPHIL 0.0 X10E9/L Normal 0.0-0.2 [facility] Comment on above: Performed By: #### 3 094-0, 94007-2, , 2028-06, PIT MANAGER, 2951- 2, 2777-1, 3084-1, 273-8 #### [facility] ([id number]) [address] [place] [address], [address] [place] [address] #### [facility] #### [facility] ([id number]) [address] [place] [address]3987 ABSOLUTE NEUTROPHIL 2.6 X10E9/L Normal 1.5-6.6 [facility] Comment on above: Performed By: #### 3 094-0, 34323-8, 0, 2028-06, PIT MANAGER, 2951- 2, 2777-1, 3084-1, 273-8 #### [facility] ([id number]) [address] [place] [address], [address] [place] [address] #### [facility] #### [facility] ([id number]) [address] [place] [address]960 Basophils/100 WBC (Bld) 0.3 % Normal [facility] Comment on above: Performed By: #### 3 094-0, 02678-9, 0, 2028-06, PIT MANAGER, 2951- 2, 2777-1, 3084-1, 2731-8 #### [facility] ([id number]) [address], [address] [place] [address] #### [place] #### [facility] ([id number]) [address] [place] [address]1984 Eosinophils (Bld) [#/Vol] 0.1 10*3/uL Normal 0.0-0.4 [facility] Comment on above: Performed By: #### 3 094-0, 56477-0, 0, 2028-06, PIT MANAGER, 2951- 2, 2777-1, 3084-1, 2731-05 #### [facility] ([id number]) [address] [place] [address] #### [facility] #### [facility] ([id number]) [address] [place] [address] 46750 Eosinophils/100 WBC (Bld) 1.6 % Normal [facility] Comment on above: Performed By: #### 3 094-0, 71477-2, 0, 2028-06, PIT MANAGER, 2951- 2, 2777-1, 308-1, 2731-05 #### [facility] ([id number]) [address] [address] #### [facility] #### [facility] ([id number]) [address] [place] [address]80 Erythrocyte distribution width (RBC) [Ratio] 16.0 % High 11.5-15.0 [facility] Comment on above: Performed By: #### 3 094-0, 45445-6, 0, 2028-06, PIT MANAGER, 2951- 2, 2777-1, 3084-1, 2731-05 #### [facility] ([id number]) [address] [facility], [address] [place] [address] #### [facility] #### [facility] ([id number]) [address] [place] [address]44 Hematocrit (Bld) [Volume fraction] 33.8 % Low 35-47 [facility] Comment on above: Performed By: #### 3 094-0, 06050-9, 2074-0, 2028-06, PIT MANAGER, 2951- 2, 2777-1, 3084-1, 2731-8 #### [facility] ([id number]) [address], [address] [place] [address] #### [facility] #### [facility] ([id number]) [address] [place] [address] 43445 Hemoglobin (Bld) [Mass/Vol] 10.9 g/dL Low 11.7-15.5 [facility] Comment on above: Performed By: #### 3 094-0, 02419-5, 0, 2028-06, PIT MANAGER, 2951- 2, 2777-1, 3084-1, 2731-8 #### [facility] ([id number]) [address], [address] [place] [address] #### [facility] #### [facility] ([id number]) [address] [place] [address] 06745 Lymphocytes (Bld) [#/Vol] 2.0 10*3/uL Normal 1.0-3.5 [facility] Comment on above: Performed By: #### 3 094-0, 43327-6, 0, 2028-06, PIT MANAGER, 2951- 2, 2777-1, 3084-1, 2731-8 #### [facility] ([id number]) [address], [address] [place] [address] #### [facility] #### [facility] ([id number]) [address] [place] [address] 87828 Lymphocytes/100 WBC (Bld) 39.6 % Normal [facility] Comment on above: Performed By: #### 3 094-0, 84695-7, , 2028-06, PIT MANAGER, 2951- 2, 2777-1, 3084-1, 273-8 #### [facility] ([id number]) [address], [address] [place] [address] #### [facility] #### [facility] ([id number]) [address] [place] [address] 40499 MCH (RBC) [Entitic mass] 24.8 pg Low 27-34 [facility] Comment on above: Performed By: #### 3 094-0, , , 2028-06, PIT MANAGER, 2951- 2, 2777-1, 3084-1, 273-8 #### [facility] ([id number]) [address], [address] [place] [address] #### [facility] #### [facility] ([id number]) [address] [place] [address] 82303 MCHC (RBC) [Mass/Vol] 32.3 g/dL Normal 32-36 [facility] Comment on above: Performed By: #### 3 094-0, , , 2028-06, PIT MANAGER, 2951- 2, 2777-1, 3084-1, 273-8 #### [facility] ([id number]) [address], [address] [place] [address] #### [facility] #### [facility] ([id number]) [address] [place] [address] 03561 MCV (RBC) [Entitic vol] 77 fL Low 80-100 [facility] Comment on above: Performed By: #### 3 094-0, , , 2028-06, PIT MANAGER, 2951- 2, 2777-1, 3084-1, 2731-8 #### [facility] ([id number]) [address], [address] [place] [address] #### [facility] #### [facility] ([id number]) [address] [place] [address] 42064 Monocytes (Bld) [#/Vol] 0.4 10*3/uL Normal 0-0.9 [facility] Comment on above: Performed By: #### 3 094-0, 18356-3, , 2028-06, PIT MANAGER, 2951- 2, 2777-1, 3084-1, 2731-8 #### [facility] ([id number]) [address], [address] [place] [address] #### [facility] #### [facility] ([id number]) [address] [place] [address] 37842 Monocytes/100 WBC (Bld) 6.9 % Normal [facility] Comment on above: Performed By: #### 3 094-0, 99674-0, 0, 2028-06, PIT MANAGER, 2951- 2, 2777-1, 3084-1, 2731-8 #### [facility] ([id number]) [address], [address] [place] [address] #### [facility] #### [facility] ([id number]) [address] [place] [address] 66180 Neutrophils/100 WBC (Bld) 51.6 % Normal [facility] Comment on above: Performed By: #### 3 094-0, 71196-1, 0, 2028-06, PIT MANAGER, 2951- 2, 2777-1, 3084-1, 2731-8 #### [facility] ([id number]) [address], [address] [place] [address] #### [place] #### [facility] ([id number]) [address] [place] [address] 11838 Platelet mean volume (Bld) [Entitic vol] 8.0 fL Normal 7-12 [facility] Comment on above: Performed By: #### 3 094-0, 66964-4, 0, 2028-06, PIT MANAGER, 2951- 2, 2777-1, 3084-1, 2731-8 #### [facility] ([id number]) [address], [address] [place] [address] #### [facility] #### [facility] ([id number]) [address] [place] [address] 19606 Platelets (Bld) [#/Vol] 275 10*3/uL Normal 150-450 [facility] Comment on above: Performed By: #### 3 094-0, 21067-5, 0, 2028-06, PIT MANAGER, 2951- 2, 2777-1, 3084-1, 2731-8 #### [facility] ([id number]) [address], [address] [place] [address] #### [place] #### [facility] ([id number]) [address] [place] [address] 46280 RBC COUNT 4.40 X10E12/L Normal 3.80-5.20 [facility] Comment on above: Performed By: #### 3 094-0, 40514-9, 0, 2028-06, PIT MANAGER, 2951- 2, 2777-1, 3084-1, 2731-8 #### [facility] ([id number]) [address], [address] [place] [address] #### [facility] #### [facility] ([id number]) [address] [place] [address] 02127 WBC (Bld) [#/Vol] 5.1 10*3/uL Normal 4.0-11.0 [facility] Comment on above: Performed By: #### 3 094-0, 72426-4, 2074-0, 2028-06, PIT MANAGER, 2951- 2, 2777-1, 3084-1, 2731-8 #### [facility] ([id number]) [address] [place] [address], [address] [place] [address] #### [place] #### [facility] ([id number]) [address] [place] [address]9061 COMPREHENSIVE METABOLIC PANE Nico 12-08-2024 Albumin [Mass/Vol] 4.2 g/dL Normal 3.2-5.3 [facility] Comment on above: Performed By: #### 3 094-0, 71783-7, 0, 2028-06, PIT MANAGER, 2951- 2, 2777-1, 3084-1, 2731-8 #### [facility] ([id number]) [address] [place] [address], [address] [place] [address] #### [place] #### [facility] ([id number]) [address] [place] [address] 12070 ALP [Catalytic activity/Vol] 112 U/L Normal 39-130 [facility] Comment on above: Performed By: #### 3 094-0, 18384-6, 2074-0, 2028-06, PIT MANAGER, 2951- 2, 2777-1, 3084-1, 2731-8 #### [facility] ([id number]) [address] [place] [address], [address] [place] [address] #### [facility] #### [facility] ([id number]) [address] [place] [address] 33877 ALT [Catalytic activity/Vol] 13 U/L Normal 0-31 [facility] Comment on above: Performed By: #### 3 094-0, 20378-6, , 2028-06, PIT MANAGER, 2951- 2, 2777-1, 3084-1, 2731-8 #### [facility] ([id number]) [address], [address] [place] [address] #### [place] #### [facility] ([id number]) [address] [place] [address] 26235 Anion gap [Moles/Vol] 10 mmol/L Normal 5-15 [facility] Comment on above: Performed By: #### 3 094-0, 81214-2, , 2028-06, PIT MANAGER, 2951- 2, 2777-1, 3084-1, 2731-8 #### [facility] ([id number]) [address], [address] [place] [address] #### [place] #### [facility] ([id number]) [address] [place] [address] 19636 AST [Catalytic activity/Vol] 18 U/L Normal 0-41 [facility] Comment on above: Performed By: #### 3 094-0, 76345-3, , 2028-06, PIT MANAGER, 2951- 2, 2777-1, 3084-1, 2731-8 #### [facility] ([id number]) [address], [address] [place] [address] #### [place] #### [facility] ([id number]) [address] [place] [address] 08375 Bilirubin [Mass/Vol] 0.5 mg/dL Normal 0.3-1.2 [facility] Comment on above: Performed By: #### 3 094-0, 77613-0, , 2028-06, PIT MANAGER, 2951- 2, 2777-1, 3084-1, 2731-8 #### [facility] ([id number]) [address], [address] [place] [address] #### [place] #### [facility] ([id number]) [address] [place] [address] 73813 Calcium [Mass/Vol] 8.9 mg/dL Normal 8.5-10.5 [facility] Comment on above: Performed By: #### 3 094-0, 67039-4, , 2028-06, PIT MANAGER, 2951- 2, 2777-1, 3084-1, 2731-8 #### [facility] ([id number]) [address], [address] [place] [address] #### [place] #### [facility] ([id number]) [address] [place] [address] 70279 Chloride [Moles/Vol] 103 mmol/L Normal 98-109 [facility] Comment on above: Performed By: #### 3 094-0, 72420-2, , 2028-06, PIT MANAGER, 2951- 2, 2777-1, 3084-1, 273-8 #### [facility] ([id number]) [address], [address] [place] [address] #### [place] #### [facility] ([id number]) [address] [place] [address] 30287 CO2 [Moles/Vol] 27 mmol/L Normal 22-32 [facility] Comment on above: Performed By: #### 3 094-0, 88030-8, 0, 2028-06, PIT MANAGER, 2951- 2, 2777-1, 3084-1, 2731-8 #### [facility] ([id number]) [address], [address] [place] [address] #### [place] #### [facility] ([id number]) [address] [place] [address] Creatinine [Mass/Vol] 0.69 mg/dL Normal 0.40-1.00 [facility] Comment on above: Result Comment: METH OD TRACEABLE TO IDMS STANDARD Performed By: #### 3 094-0, 02628-1, 0, 2028-06, PIT MANAGER, 2951-2, 2777-1, 3084-1, 2731-8 #### [facility] ([id number]) [address] [facility], [address] [place] [address] #### [place] #### [facility] ([id number]) [address] [place] [address] 34424 eGFR (CKD-EPI) NON-RACE DEPENDENT >90 Normal >59 [facility] Comment on above: Result Comment: Reported eGFR is based on the CKD-EPI 2020 equation that does not use a race coefficient. Performed By: #### 3 094-0, 98297-1, 0, 2028-06, PIT MANAGER, 2951-2, 2777-1, 3084-1, 2731-8 #### [facility] ([id number]) [address], [address] [place] [address] #### [place] #### [facility] ([id number]) [address] [place] [address] 94209 Glucose [Mass/Vol] 97 mg/dL Normal 65-99 [facility] Comment on above: Performed By: #### 3 094-0, 05385-1, 0, 2028-06, PIT MANAGER, 2951- 2, 2777-1, 3084-1, 2731-8 #### [facility] ([id number]) [address], [address] [place] [address] #### [place] #### [facility] ([id number]) [address] [place] [address] 59790 Potassium [Moles/Vol] 4.0 mmol/L Normal 3.5-5.0 [facility] Comment on above: Performed By: #### 3 094-0, 87969-4, 0, 2028-06, PIT MANAGER, 2951- 2, 2777-1, 3084-1, 2731-8 #### [facility] ([id number]) [address] [facility], [address] [place] [address] #### [place] #### [facility] ([id number]) [address] [place] [address] 81623 Protein [Mass/Vol] 7.3 g/dL Normal 6.0-8.0 [facility] Comment on above: Performed By: #### 3 094-0, 46579-6, 0, 2028-06, PIT MANAGER, 2951- 2, 2777-1, 3084-1, 273-8 #### [facility] ([id number]) [address] [facility], [address] [place] [address] #### [place] #### [facility] ([id number]) [address] [place] [address] 05331 Sodium [Moles/Vol] 140 mmol/L Normal 134-146 [facility] Comment on above: Performed By: #### 3 094-0, 33682-8, 0, 2028-06, PIT MANAGER, 2951- 2, 2777-1, 3084-1, 2731-8 #### [facility] ([id number]) [address], [address] [place] [address] #### [place]U #### [facility] ([id number]) [address] [place] [address] Urea nitrogen [Mass/Vol] 13 mg/dL Normal 5-23 [facility] Comment on above: Performed By: #### 3 094-0, 77258-4, 0, 2028-06, PIT MANAGER, 2951- 2, 2777-1, 3084-1, 2730-8 #### [facility] ([id number]) [address], [address] [place] [address] #### [place]U #### [facility] ([id number]) [address] [place] [address] URN MACROSCOPIC NURon 2024 BILIRUBIN JUNIOR Negative Normal NEG [facility] Comment on above: Performed By: #### 3 094-0, 44928-7, , 2028-06, PIT MANAGER, 2951- 2, 2777-1, 3084-1, 2731-05 #### [facility] ([id number]) [address], [address] [place] [address] #### [place]U #### [facility] ([id number]) [address] [place] [address] BLOOD/HGB JUNIOR Large Abnormal NEG [facility] Comment on above: Performed By: #### 3 094-0, 61470-0, 0, 2028-06, PIT MANAGER, 2951- 2, 2777-1, 3084-1, 2730- #### [facility] ([id number]) [address], [address] [place] [address] #### [place]U #### [facility] ([id number]) [address] [place] [address] GLUCOSE JUNIOR Negative Normal NEG [facility] Comment on above: Performed By: #### 3 094-0, 25774-2, 0, 2028-06, PIT MANAGER, 2951- 2, 2777-1, 3084-1, 2730-8 #### [facility] ([id number]) [address], [address] [place] [address] #### [facility] #### [facility] ([id number]) [address] [place] [address] 45186 KETONES JUNIOR Trace Abnormal NEG [facility] Comment on above: Performed By: #### 3 094-0, 82448-5, 0, 2028-06, PIT MANAGER, 2951- 2, 2777-1, 3084-1, 2731-8 #### [facility] ([id number]) [address] [facility], [address] [place] [address] #### [facility]U #### [facility] ([id number]) [address] [place] [address] 12855 LEUKOCYTE ESTERASE JUNIOR Negative Normal NEG [facility] Comment on above: Performed By: #### 3 094-0, 69120-2, 0, 2028-06, PIT MANAGER, 2951- 2, 2777-1, 3084-1, 2731-8 #### [facility] ([id number]) [address] [facility], [address] [place] [address] #### [facility] #### [facility] ([id number]) [address] [place] [address] 57528 NITRITE JUNIOR Negative Normal NEG [facility] Comment on above: Performed By: #### 3 094-0, 48866-8, 0, 2028-06, PIT MANAGER, 2951- 2, 2777-1, 3084-1, 2731-8 #### [facility] ([id number]) [address] [facility], [address] [place] [address] #### [facility] #### [facility] ([id number]) [address] [place] [address] 95920 PH JUNIOR 6.0 Normal 5.0-8.5 [facility] Comment on above: Performed By: #### 3 094-0, 05384-5, , 2028-06, PIT MANAGER, 2951- 2, 2777-1, 3084-1, 2731-05 #### [facility] ([id number]) [address], [address] [place] [address] #### [facility]U #### [facility] ([id number]) [address] [place] [address] PROTEIN JUNIOR 30 mg/dL Abnormal NEG [facility] Comment on above: Performed By: #### 3 094-0, 76373-5, , 2028-06, PIT MANAGER, 2951- 2, 2777-1, 3084-1, 2731-05 #### [facility] ([id number]) [address] [facility], [address] [place] [address] #### [facility] #### [facility] ([id number]) [address] [place] [address] 81843 SPECIFIC GRAVITY JUNIOR >=1.030 Normal 1.003-1.035 [facility] Comment on above: Performed By: #### 3 094-0, 10133-4, , 2028-06, PIT MANAGER, 2951- 2, 2777-1, 3084-1, 2731-05 #### [facility] ([id number]) [address], [address] [place] [address] #### [facility]U #### [facility] ([id number]) [address] [place] [address] 53814 UROBILINOGEN JUNIOR 1.0 eu/dL Normal <1.1 [facility] Comment on above: Performed By: #### 3 094-0, 31461-6, 0, 2028-06, PIT MANAGER, 2951- 2, 2777-1, 3084-1, 2730-8 #### [facility] ([id number]) [address] [facility], [address] [place] [address] #### [facility]U #### [facility] ([id number]) [address] [facility], [place] [address] XR ABDOMEN AP 1 VWon 025 XR ABDOMEN AP 1 VW XR ABDOMEN AP 1 VW XR ABDOMEN AP 1 VW HISTORY: flank pain, renal colic COMPARISON: 12/17/2019. IMPRESSION: 1. Nonobstructive bowel gas pattern. 2. No radiopaque calculus projecting over the collecting systems. Pelvic phleboliths. 3. Moderate volume stool throughout the colon. 4. No large volume intraperitoneal free air on this limited supine technique. 5. Spinal stimulator right lower quadrant. Surgical clips project over the pelvis, epigastrium, and right upper quadrant. Finalized by Jaxon Merrill on 12/08/2024 6:44 PM Normal [facility] 12-05-2024 Pain Medicine Medical [address] [address] CC: No chief complaint on file. SUBJECTIVE: [...] Grandfather Cancer Father Tye Shearn Cancer Sister Januarytman Physical Exam Alert and oriented Non labored [...] this note were generated using voice recognition [employer] dictation software. Although every effort was made to ensure the accuracy of this automated crew leader gluing, some errors in crew leader gluing may have occurred. Normal [facility] NURSNOTEon 12-05-2024 NURSNOTE Interventional Pain Management Nursing [...] Frequency: Constant/continuous Pain Interventions: Medication (See MAR) Normal [facility] Orders Onlyon 12-05-2024 Orders Only [id number] Madyson Moore ma 1980 F Date Provider Department Center 12/05/2024 RUKHSANA ESPINOZA MP PAIN Medical Pavi Family History Problem Relation Age of Onset Brain cancer Mother Breast cancer Sister Kidney cancer Maternal Grandmother Prostate cancer Paternal Grandfather Cancer Father Cancer Sister Family Status - Relation Status Age at Mother Sister Maternal Grandmother Paternal Grandfather Father Sister Normal [facility] Orders Onlyon 12-04-2024 Orders Only [id number] Madyson Moore ma 1980 F Date Provider Department Center 12/04/2024 [id number] MOE MP PAIN Medical Pavi Family History Problem Relation Age of Onset Brain cancer Mother Breast cancer Sister Kidney cancer Maternal Grandmother Prostate cancer Paternal Grandfather Cancer Father Cancer Sister Family Status - Relation Status Age at Mother Sister Maternal Grandmother Paternal Grandfather Father Sister Normal [facility] Refillon 12-04-2024 Refill [id number] Madyson Moore ma 1980 F Date Provider Department Center 12/04/2024 RUKHSANA ESPINOZA MP PAIN Medical Pavi Family History Problem Relation Age of Onset Brain cancer Mother Breast cancer Sister Kidney cancer Maternal Grandmother Prostate cancer Paternal Grandfather Cancer Father Cancer Sister Family Status - Relation Status Age at Mother Sister Maternal Grandmother Paternal Grandfather Father Sister Reason for Visit and Comments: Med Refill [[id number]] Normal [facility] Reminderson 10-23-2024 Reminders Reminders From: Maggie Vargas To: EU - Administrative; Sent: 03/07/2024 16:37:39 EDT Show up: 09/10/2024 16:37:00 EST Subject: Ambulatory Reminder Due Date/Time: 02/27/2025 16:37:00 EDT Reminder/Recall Please schedule patient for 1 yr f/u with DONAV[facility] with [facility] when schedule is built that far out. Due late February 2025 LVM to call and schedule February 2025 appointment. LVM to schedule february 2025 1 yr f/u w/ DONAVON w/ [facility]. Normal [facility] Follow-Upon 10-19-2024 Follow-Up [id number] Madyson Moore 1980 F Date Provider Department Center 10/19/2024 RUKHSANA ESPINOZA MP PAIN Medical Pavi Family History Problem Relation Age of Onset Brain cancer Mother Breast cancer Sister Kidney cancer Maternal Grandmother Prostate cancer Paternal Grandfather Cancer Father Cancer Sister Family Status - Relation Status Age at Mother Sister Maternal Grandmother Paternal Grandfather Father Sister Level of Service:72852 [place] OFFICE/OUTPATIENT ESTABLISHED LOW MDM 20 MIN Reason for Visit and Comments: Med Management [[id number]] - No bottles for pill count Patient educated on bringing bottles to every visit Follow-up [[id number]] - Left knee pain Normal [facility] Orders Onlyon 10-18-2024 Orders Only [id number] LudyMadyson tilley ma 1980 F Date Provider Department Center 10/18/2024 [id number], NADINE MOCTEZUMA PAIN Medical Pavi Family History Problem Relation Age of Onset Brain cancer Mother Breast cancer Sister Kidney cancer Maternal Grandmother Prostate cancer Paternal Grandfather Cancer Father Cancer Sister Family Status - Relation Status Age at Mother Sister Maternal Grandmother Paternal Grandfather Father Sister Normal [facility] Refillon 10-07-2024 Refill [id number] LudyMadyson tilley ma 1980 F Date Provider Department Center 10/07/2024 RUKHSANA ESPINOZA MP PAIN Medical Pavi Family History Problem Relation Age of Onset Brain cancer Mother Breast cancer Sister Kidney cancer Maternal Grandmother Prostate cancer Paternal Grandfather Cancer Father Cancer Sister Family Status - Relation Status Age at Mother Sister Maternal Grandmother Paternal Grandfather Father Sister Reason for Visit and Comments: Med Refill [[id number]] Normal [facility] Orders Onlyon 09-12-2024 Orders Only [id number] LudyMadyson tilley ma 1980 F Date Provider Department Center 09/12/2024 RUKHSANA ESPINOZA MP PAIN Medical Pavi Family History Problem Relation Age of Onset Brain cancer Mother Breast cancer Sister Kidney cancer Maternal Grandmother Prostate cancer Paternal Grandfather Cancer Father Cancer Sister Family Status - Relation Status Age at Mother Sister Maternal Grandmother Paternal Grandfather Father Sister Normal [facility] Refillon 08-10-2024 Refill [id number] Madyson Moore ma 1980 F Date Provider Department Center 08/10/2024 RUKHSANA ESPINOZA MP PAIN Medical Pavi Family History Problem Relation Age of Onset Brain cancer Mother Breast cancer Sister Kidney cancer Maternal Grandmother Prostate cancer Paternal Grandfather Cancer Father Cancer Sister Family Status - Relation Status Age at Mother Sister Maternal Grandmother Paternal Grandfather Father Sister Reason for Visit and Comments: Med Refill [[id number]] Normal [facility] CBC AND AUTO DIFFon 08-09-20 24 ABSOLUTE BASOPHIL 0.0 X10E9/L Normal 0.0-0.2 [facility] Comment on above: Performed By: #### 3 094-0, 25064-0, , 2028-06, PIT MANAGER, 2951- 2, 2777-1, 3084-1, 2730- #### [facility] ([id number]) [address] [place] [address], [facility] [address] [place] [address] #### [facility] #### [facility] ([id number]) [address] [place] [address] 82932 ABSOLUTE NEUTROPHIL 2.5 X10E9/L Normal 1.5-6.6 [facility] Comment on above: Performed By: #### 3 094-0, 28975-8, , 2028-06, PIT MANAGER, 2951- 2, 2777-1, 3084-1, 27310-18 #### [facility] ([id number]) [address] [place] [address], [address] [place] [address] #### [facility] #### [facility] ([id number]) [address] [place] [address] 60614 Basophils/100 WBC (Bld) 0.4 % Normal [facility] Comment on above: Performed By: #### 3 094-0, 03538-5, 0, 2028-06, PIT MANAGER, 2951- 2, 2777-1, 3084-1, 273-8 #### [facility] ([id number]) [address], [address] [place] [address] #### [facility] #### [facility] ([id number]) [address] [place] [address] 41415 Eosinophils (Bld) [#/Vol] 0.1 10*3/uL Normal 0.0-0.4 [facility] Comment on above: Performed By: #### 3 094-0, 97910-1, 0, 2028-06, PIT MANAGER, 2951- 2, 2777-1, 3084-1, 2731-05 #### [facility] ([id number]) [address] [facility], [address] [place] [address] #### [facility] #### [facility] ([id number]) [address] [place] [address] 57790 Eosinophils/100 WBC (Bld) 1.3 % Normal [facility] Comment on above: Performed By: #### 3 094-0, 44949-6, 0, 2028-06, PIT MANAGER, 2951- 2, 2777-1, 308-1, 2731-05 #### [facility] ([id number]) [address], [address] [place] [address] #### [facility] #### [facility] ([id number]) [address] [place] [address] 15462 Erythrocyte distribution width (RBC) [Ratio] 14.2 % Normal 11.5-15.0 [facility] Comment on above: Performed By: #### 3 094-0, 19870-6, 0, 2028-06, PIT MANAGER, 2951- 2, 2777-1, 3084-1, 8 #### [facility] ([id number]) [address], [address] [place] [address] #### [facility] #### [facility] ([id number]) [address] [place] [address] 96442 Hematocrit (Bld) [Volume fraction] 34.3 % Low 35-47 [facility] Comment on above: Performed By: #### 3 094-0, 30472-0, 2074-0, 2028-06, PIT MANAGER, 2951- 2, 2777-1, 3084-1, 2731-8 #### [facility] ([id number]) [address], [address] [place] [address] #### [facility] #### [facility] ([id number]) [address] [place] [address] 55192 Hemoglobin (Bld) [Mass/Vol] 11.3 g/dL Low 11.7-15.5 [facility] Comment on above: Performed By: #### 3 094-0, 30199-6, 0, 2028-06, PIT MANAGER, 2951- 2, 2777-1, 3084-1, 2731-8 #### [facility] ([id number]) [address], [address] [place] [address] #### [facility] #### [facility] ([id number]) [address] [place] [address] 87005 Lymphocytes (Bld) [#/Vol] 2.6 10*3/uL Normal 1.0-3.5 [facility] Comment on above: Performed By: #### 3 094-0, 92673-1, 0, 2028-06, PIT MANAGER, 2951- 2, 2777-1, 3084-1, 2731-8 #### [facility] ([id number]) [address], [address] [place] [address] #### [facility] #### [facility] ([id number]) [address] [place] [address] 71772 Lymphocytes/100 WBC (Bld) 45.9 % Normal [facility] Comment on above: Performed By: #### 3 094-0, 13916-9, , 2028-06, PIT MANAGER, 2951- 2, 2777-1, 3084-1, 273-8 #### [facility] ([id number]) [address], [address] [place] [address] #### [facility] #### [facility] ([id number]) [address] [place] [address] 38378 MCH (RBC) [Entitic mass] 27.4 pg Normal 27-34 [facility] Comment on above: Performed By: #### 3 094-0, , , 2028-06, PIT MANAGER, 2951- 2, 2777-1, 3084-1, 273-8 #### [facility] ([id number]) [address], [address] [place] [address] #### [facility] #### [facility] ([id number]) [address] [place] [address] 20234 MCHC (RBC) [Mass/Vol] 33.0 g/dL Normal 32-36 [facility] Comment on above: Performed By: #### 3 094-0, , , 2028-06, PIT MANAGER, 2951- 2, 2777-1, 3084-1, 273-8 #### [facility] ([id number]) [address], [address] [place] [address] #### [facility] #### [facility] ([id number]) [address] [place] [address] 65162 MCV (RBC) [Entitic vol] 83 fL Normal 80-100 [facility] Comment on above: Performed By: #### 3 094-0, , 2074-0, 2028-06, PIT MANAGER, 2951- 2, 2777-1, 3084-1, 2731-8 #### [facility] ([id number]) [address], [address] [place] [address] #### [facility] #### [facility] ([id number]) [address] [place] [address] 58172 Monocytes (Bld) [#/Vol] 0.4 10*3/uL Normal 0-0.9 [facility] Comment on above: Performed By: #### 3 094-0, 44173-2, 0, 2028-06, PIT MANAGER, 2951- 2, 2777-1, 3084-1, 2731-8 #### [facility] ([id number]) [address] [facility], [address] [place] [address] #### [facility]U #### [facility] ([id number]) [address] [place] [address] 71476 Monocytes/100 WBC (Bld) 6.8 % Normal [facility] Comment on above: Performed By: #### 3 094-0, 45366-4, 0, 2028-06, PIT MANAGER, 2951- 2, 2777-1, 3084-1, 2731-8 #### [facility] ([id number]) [address], [address] [place] [address] #### [facility] #### [facility] ([id number]) [address] [place] [address] 34088 Neutrophils/100 WBC (Bld) 45.6 % Normal [facility] Comment on above: Performed By: #### 3 094-0, 51439-2, 2074-0, 2028-06, PIT MANAGER, 2951- 2, 2777-1, 3084-1, 2731-8 #### [facility] ([id number]) [address], [address] [place] [address] #### [facility] #### [facility] ([id number]) [address] [place] [address] 84151 Platelet mean volume (Bld) [Entitic vol] 7.3 fL Normal 7-12 [facility] Comment on above: Performed By: #### 3 094-0, 20110-1, 0, 2028-06, PIT MANAGER, 2951- 2, 2777-1, 3084-1, 2731-8 #### [facility] ([id number]) [address], [address] [place] [address] #### [facility]U #### [facility] ([id number]) [address] [place] [address] 89085 Platelets (Bld) [#/Vol] 253 10*3/uL Normal 150-450 [facility] Comment on above: Performed By: #### 3 094-0, 33021-3, 0, 2028-06, PIT MANAGER, 2951- 2, 2777-1, 3084-1, 2731-8 #### [facility] ([id number]) [address], [address] [place] [address] #### [facility]U #### [facility] ([id number]) [address] [place] [address] 56820 RBC COUNT 4.12 X10E12/L Normal 3.80-5.20 [facility] Comment on above: Performed By: #### 3 094-0, 39733-7, 0, 2028-06, PIT MANAGER, 2951- 2, 2777-1, 3084-1, 2731-8 #### [facility] ([id number]) [address], [address] [place] [address] #### [facility]U #### [facility] ([id number]) [address] [place] [address] 25437 WBC (Bld) [#/Vol] 5.6 10*3/uL Normal 4.0-11.0 [facility] Comment on above: Performed By: #### 3 094-0, 95103-5, 2074-0, 2028-06, PIT MANAGER, 2951- 2, 2777-1, 3084-1, 2731-8 #### [facility] ([id number]) [address] [facility], [address] [place] [address] #### [facility]U #### [facility] ([id number]) [address] [place] [address] 53183 COMPREHENSIVE METABOLIC PANE Nico 08-09-2024 Albumin [Mass/Vol] 4.3 g/dL Normal 3.2-5.3 [facility] Comment on above: Performed By: #### 3 094-0, 02589-5, 0, 2028-06, PIT MANAGER, 2951- 2, 2777-1, 3084-1, 2731-8 #### [facility] ([id number]) [address] [place] [address], [address] [place] [address] #### [facility]U #### [facility] ([id number]) [address] [place] [address] 73850 ALP [Catalytic activity/Vol] 93 U/L Normal 39-130 [facility] Comment on above: Performed By: #### 3 094-0, 13516-2, 2074-0, 2028-06, PIT MANAGER, 2951- 2, 2777-1, 3084-1, 2731-8 #### [facility] ([id number]) [address] [place] [address], [address] [place] [address] #### [facility]U #### [facility] ([id number]) [address] [place] [address] 25998 ALT [Catalytic activity/Vol] 14 U/L Normal 0-31 [facility] Comment on above: Performed By: #### 3 094-0, 82381-7, , 2028-06, PIT MANAGER, 2951- 2, 2777-1, 3084-1, 2731-8 #### [facility] ([id number]) [address], [address] [place] [address] #### [facility]U #### [facility] ([id number]) [address] [place] [address] 26448 Anion gap [Moles/Vol] 8 mmol/L Normal 5-15 [facility] Comment on above: Performed By: #### 3 094-0, 97022-2, , 2028-06, PIT MANAGER, 2951- 2, 2777-1, 3084-1, 2731-8 #### [facility] ([id number]) [address], [address] [place] [address] #### [facility]U #### [facility] ([id number]) [address] [place] [address] 40093 AST [Catalytic activity/Vol] 14 U/L Normal 0-41 [facility] Comment on above: Performed By: #### 3 094-0, 95260-8, , 2028-06, PIT MANAGER, 2951- 2, 2777-1, 3084-1, 2731-8 #### [facility] ([id number]) [address], [address] [place] [address] #### [place]U #### [facility] ([id number]) [address] [place] [address] 56952 Bilirubin [Mass/Vol] 0.3 mg/dL Normal 0.3-1.2 [facility] Comment on above: Performed By: #### 3 094-0, 04329-6, , 2028-06, PIT MANAGER, 2951- 2, 2777-1, 3084-1, 2731-8 #### [facility] ([id number]) [address], [address] [place] [address] #### [place]U #### [facility] ([id number]) [address] [place] [address] 02313 Calcium [Mass/Vol] 8.8 mg/dL Normal 8.5-10.5 [facility] Comment on above: Performed By: #### 3 094-0, 66782-6, 0, 2028-06, PIT MANAGER, 2951- 2, 2777-1, 3084-1, 273-8 #### [facility] ([id number]) [address], [address] [place] [address] #### [place]U #### [facility] ([id number]) [address] [place] [address] 55710 Chloride [Moles/Vol] 105 mmol/L Normal 98-109 [facility] Comment on above: Performed By: #### 3 094-0, 96785-3, , 2028-06, PIT MANAGER, 2951- 2, 2777-1, 3084-1, 273-8 #### [facility] ([id number]) [address], [address] [place] [address] #### [facility]U #### [facility] ([id number]) [address] [place] [address] 81008 CO2 [Moles/Vol] 26 mmol/L Normal 22-32 [facility] Comment on above: Performed By: #### 3 094-0, 27778-2, 0, 2028-06, PIT MANAGER, 2951- 2, 2777-1, 3084-1, 2731-8 #### [facility] ([id number]) [address], [address] [place] [address] #### [place]U #### [facility] ([id number]) [address] [place] [address] Creatinine [Mass/Vol] 0.66 mg/dL Normal 0.40-1.00 [facility] Comment on above: Result Comment: METH OD TRACEABLE TO IDMS STANDARD Performed By: #### 3 094-0, 42300-0, , 2028-06, PIT MANAGER, 2951-2, 2777-1, 3084-1, 2731-8 #### [facility] ([id number]) [address] [facility], [facility] [address] [place] [address] #### [facility]U #### [facility] ([id number]) [address] [place] [address] 37345 eGFR (CKD-EPI) NON-RACE DEPENDENT >90 Normal >59 [facility] Comment on above: Result Comment: Reported eGFR is based on the CKD-EPI 2020 equation that does not use a race coefficient. Performed By: #### 3 094-0, 36087-2, , 2028-06, PIT MANAGER, 2951-2, 2777-1, 3084-1, 273-8 #### [facility] ([id number]) [address] [facility], [address] [place] [address] #### [facility]U #### [facility] ([id number]) [address] [place] [address] 98778 Glucose [Mass/Vol] 100 mg/dL High 65-99 [facility] Comment on above: Performed By: #### 3 094-0, 56419-7, 0, 2028-06, PIT MANAGER, 2951- 2, 2777-1, 3084-1, 2731-8 #### [facility] ([id number]) [address] [facility], [address] [place] [address] #### [place]U #### [facility] ([id number]) [address] [place] [address] 13663 Potassium [Moles/Vol] 3.8 mmol/L Normal 3.5-5.0 [facility] Comment on above: Performed By: #### 3 094-0, 00561-7, 0, 2028-06, PIT MANAGER, 2951- 2, 2777-1, 3084-1, 2731-8 #### [facility] ([id number]) [address] [facility], [address] [place] [address] #### [place]U #### [facility] ([id number]) [address] [place] [address] 96710 Protein [Mass/Vol] 7.2 g/dL Normal 6.0-8.0 [facility] Comment on above: Performed By: #### 3 094-0, 10768-1, 0, 2028-06, PIT MANAGER, 2951- 2, 2777-1, 3084-1, 273-8 #### [facility] ([id number]) [address], [address] [place] [address] #### [place]U #### [facility] ([id number]) [address] [place] [address]85 Sodium [Moles/Vol] 139 mmol/L Normal 134-146 [facility] Comment on above: Performed By: #### 3 094-0, 17676-6, 0, 2028-06, PIT MANAGER, 2951- 2, 2777-1, 3084-1, 2731-8 #### [facility] ([id number]) [address], [address] [place] [address] #### [place] #### [facility] ([id number]) [address] [place] [address] Urea nitrogen [Mass/Vol] 18 mg/dL Normal 5-23 [facility] Comment on above: Performed By: #### 3 094-0, 48619-5, 2075-0, 8-9, PIT MANAGER, 2951- 2, 2777-1, 3084-1, 2731-8 #### [facility] ([id number]) [address], [address] [place] [address] #### [place]U #### [facility] ([id number]) [address], [place] [address] CT ABDOMEN AND PELVIS WO CON Ton [...] Gates MD on 08/09/2024 2:08 AM Normal [facility] URN MACROSCOPIC NURon 2023 BILIRUBIN JUNIOR Negative Normal NEG [facility] Comment on above: Performed By: #### 3 094-0, 51638-0, 0, 2028-06, PIT MANAGER, 2951- 2, 2777-1, 3084-1, 273-8 #### [facility] ([id number]) [address], [address] [place] [id number] #### [place] #### [facility] ([id number]) [address] [place] [address] [address] BLOOD/HGB JUNIOR Large Abnormal NEG [facility] Comment on above: Performed By: #### 3 094-0, 73082-0, 0, 2028-06, PIT MANAGER, 2951- 2, 2777-1, 3084-1, 273-8 #### [facility] ([id number]) [address] [facility], [address] [place] [address] #### CITACU #### [facility] ([id number]) [address] [place] [address] GLUCOSE JUNIOR Negative Normal NEG [facility] Comment on above: Performed By: #### 3 094-0, 52381-2, 0, 2028-06, PIT MANAGER, 2951- 2, 2777-1, 3084-1, 273-8 #### [facility] ([id number]) [address] [facility], [address] [place] [address] #### CITACU #### [facility] ([id number]) [address] [place] [address] KETONES JUNIOR Negative Normal NEG [facility] Comment on above: Performed By: #### 3 094-0, 43649-7, 0, 2028-06, PIT MANAGER, 2951- 2, 2777-1, 3084-1, 2731-8 #### [facility] ([id number]) [address], [address] [place] [address] #### CITACU #### [facility] ([id number]) [address] [place] [address] LEUKOCYTE ESTERASE JUNIOR Trace Abnormal NEG [facility] Comment on above: Performed By: #### 3 094-0, 15069-8, 0, 2028-06, PIT MANAGER, 2951- 2, 2777-1, 3084-1, 2731-8 #### [facility] ([id number]) [address], [address] [place] [address] #### CITACU #### [facility] ([id number]) [address] [place] [address] NITRITE JUNIOR Negative Normal NEG [facility] Comment on above: Performed By: #### 3 094-0, 96109-5, 0, 2028-06, PIT MANAGER, 2951- 2, 2777-1, 3084-1, 2731-8 #### [facility] ([id number]) [address], [address] [place] [address] #### CITACU #### [facility] ([id number]) [address] [place] [address] PH JUNIOR 5.5 Normal 5.0-8.5 [facility] Comment on above: Performed By: #### 3 094-0, 84111-0, 2074-0, 2028-06, PIT MANAGER, 2951- 2, 2777-1, 3084-1, 2731-8 #### [facility] ([id number]) [address], [address] [place] [address] #### CITACU #### [facility] ([id number]) [address] [place] [address] PROTEIN JUNIOR 30 mg/dL Abnormal NEG [facility] Comment on above: Performed By: #### 3 094-0, 46486-4, 0, 2028-06, PIT MANAGER, 2951- 2, 2777-1, 3084-1, 2731-8 #### [facility] ([id number]) [address] [facility], [address] [place] [address] #### CITACU #### [facility] ([id number]) [address] [place] [address]297 SPECIFIC GRAVITY JUNIOR >=1.030 Normal 1.003-1.035 [facility] Comment on above: Performed By: #### 3 094-0, 67658-0, 0, 2028-06, PIT MANAGER, 2951- 2, 2777-1, 3084-1, 2731-8 #### [facility] ([id number]) [address] [facility], [address] [place] [address] #### CITACU #### [facility] ([id number]) [address] [place] [address] UROBILINOGEN JUNIOR 1.0 eu/dL Normal <1.1 [facility] Comment on above: Performed By: #### 3 094-0, 24307-1, 0, 2028-06, PIT MANAGER, 2951- 2, 2777-1, 3084-1, 2731-8 #### [facility] ([id number]) [address], [address] [place] [address] #### CITACU #### [facility] ([id number]) [address] [place] [address], [place] [address] Follow-Upon 07-24-2024 Follow-Up [id number] Madyson Moore 1980 F Date Provider Department Center 07/24/2024 433-MONIQUE BURKETT MP ORTHO MPORTHO Family History Problem Relation Age of Onset Brain cancer Mother Breast cancer Sister Kidney cancer Maternal Grandmother Prostate cancer Paternal Grandfather Cancer Father Cancer Sister Family Status - Relation Status Age at Mother Sister Maternal Grandmother Paternal Grandfather Father Sister Level of Service:85548 [place] OFFICE/OUTPATIENT ESTABLISHED MOD MDM 30 MIN (GC,57) Reason for Visit and Comments: New Patient [632] - History of Left knee revision that was performed on 06/01/22 , initial TKA in 10/[address] Laen . Here today with chronic anterior knee pain since surgery. Follow-up [686410] - History of Left knee revision that was performed on 06/01/22 , initial TKA in 10/[address] Lane . Here today with chronic anterior knee pain since surgery. Normal [facility] Follow-Upon 07-19-2024 Follow-Up [id number] Madyson Moore 1980 F Date Provider Department Center 07/19/2024 170-RUKHSANA MILLER MP PAIN Medical Pavi Family History Problem Relation Age of Onset Brain cancer Mother Breast cancer Sister Kidney cancer Maternal Grandmother Prostate cancer Paternal Grandfather Cancer Father Cancer Sister Family Status - Relation Status Age at Mother Sister Maternal Grandmother Paternal Grandfather Father Sister Level of Service:66287 [place] OFFICE/OUTPATIENT ESTABLISHED LOW MDM 20 MIN Reason for Visit and Comments: Med Management [[id number]] - Refill Hydrocodone-acetaminophen Pill count Med Refill [110584] - Gabapentin Normal [facility] Surgical Pathology Reporton 07-17-2024 Surgical Pathology Report (NOTE) Path Number: [id number] -- Diagnosis -- RIGHT PAROTID GLAND, 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 COMMENT: FOR OPTICAL GLASS SAWYER, THE SLIDES WERE REVIEWED BY OTHER PATHOLOGISTS [...] is entirely submitted in 2c. tm Thalia Madrid/gregor2:07/17/2024 Microscopic Description The circumscribed tumor nodule contains nests and cords of benign epithelial cells embedded in chondromyxoid stroma, consistent with pleomorphic adenoma. The surrounding parotid gland tissue is unremarkable. A small, benign lymph node is present in the fibroadipose tissue surrounding the parotid gland. Processing Lab: [address] Interpretation Performed at [place] [address] SURGICAL PATHOLOGY CONSULTATION Patient Name: ELVI MOORE [facility] Rec: [id number] [employer] [facility] ANATOMIC PATHOLOGY [address] [place] [address]. [address] Normal [facility] C-REACTIVE PROTEINon 024 C REACTIVE PROTEIN (MG/L) IN SER/PLAS 1.7 mg/L Normal 0.0-7.0 [facility] Comment on above: Performed By: #### L AB149 ####[facility] (BEAKER)[address] [place] [address] Labon 07-14-2024 Lab [id number] Madyson Moore 1980 F Date Provider Department Center 07/14/2024 2245-[facility] RESOURCE [facility] CO Medical C Family History Problem Relation Age of Onset Brain cancer Mother Breast cancer Sister Kidney cancer Maternal Grandmother Prostate cancer Paternal Grandfather Cancer Father Cancer Sister Family Status - Relation Status Age at Mother Sister Maternal Grandmother Paternal Grandfather Father Sister Normal [facility] SEDIMENTATION RATEon 1004-2 024 SEDIMENTATION RATE, ERYTHROCYTE 20 mm/hr Normal <=20 [facility] Comment on above: Performed By: #### L AB322 ####[facility] (BEAKER)[address] [place] [address] Orders Onlyon 07-04-2024 Orders Only [id number] LudyModesto tilleyat ma 1980 F Date Provider Department Center 07/04/2024 96004-THNFVMIGDALIA STEVEN MP PAIN Medical Pavi Family History Problem Relation Age of Onset Brain cancer Mother Breast cancer Sister Kidney cancer Maternal Grandmother Prostate cancer Paternal Grandfather Cancer Father Cancer Sister Family Status - Relation Status Age at Mother Sister Maternal Grandmother Paternal Grandfather Father Sister Normal [facility] Orders Only [id number] TeresaTabat ma 1980 F Date Provider Department Center 07/04/2024 RUKHSANA ESPINOZA MP PAIN Medical Pavi Family History Problem Relation Age of Onset Brain cancer Mother Breast cancer Sister Kidney cancer Maternal Grandmother Prostate cancer Paternal Grandfather Cancer Father Cancer Sister Family Status - Relation Status Age at Mother Sister Maternal Grandmother Paternal Grandfather Father Sister Normal [facility] Refillon 07-03-2024 Refill [id number] TeresaModestoat ma 1980 F Date Provider Department Center 07/03/2024 RUKHSANA ESPINOZA MP PAIN Medical Pavi Family History Problem Relation Age of Onset Brain cancer Mother Breast cancer Sister Kidney cancer Maternal Grandmother Prostate cancer Paternal Grandfather Cancer Father Cancer Sister Family Status - Relation Status Age at Mother Sister Maternal Grandmother Paternal Grandfather Father Sister Reason for Visit and Comments: Med Refill [[id number]] Normal [facility] Refillon 06-07-2024 Refill [id number] TeresaModestoat ma 1980 F Date Provider Department Center 06/07/2024 RUKHSANA ESPINOZA MP PAIN Medical Pavi Family History Problem Relation Age of Onset Brain cancer Mother Breast cancer Sister Kidney cancer Maternal Grandmother Prostate cancer Paternal Grandfather Cancer Father Cancer Sister Family Status - Relation Status Age at Mother Sister Maternal Grandmother Paternal Grandfather Father Sister Reason for Visit and Comments: Med Refill [[id number]] Normal [facility] CT KNEE LEFT WO IV [...] Sathya Christianson. Aiyana Andersen Invalid Interpretation Code [facility] Office Visiton 06-01-2024 Follow-up visit [id number] Madyson Moore 1980 F Date Provider Department Center 06/01/2024 499-KHRIS BUCHANAN MP ORTHO MPORTHO Family History Problem Relation Age of Onset Brain cancer Mother Breast cancer Sister Kidney cancer Maternal Grandmother Prostate cancer Paternal Grandfather Cancer Father Cancer Sister Family Status - Relation Status Age at Mother Sister Maternal Grandmother Paternal Grandfather Father Sister Level of Service:82745 [place] OFFICE/OUTPATIENT ESTABLISHED LOW MDM 20 MIN Reason for Visit and Comments: New Patient [632] - Patient had 2nd knee replacement about a year ago, since then patient has been having increased pain and swelling, patient does see pain management and has stimulator in back Normal [facility] Refillon 05-09-2024 Refill [id number] Madyson Moore 1980 F Date Provider Department Center 05/09/2024 RUKHSANA ESPINOZA MP PAIN Medical Pavi Family History Problem Relation Age of Onset Brain cancer Mother Breast cancer Sister Kidney cancer Maternal Grandmother Prostate cancer Paternal Grandfather Cancer Father Cancer Sister Family Status - Relation Status Age at Mother Sister Maternal Grandmother Paternal Grandfather Father Sister Reason for Visit and Comments: Med Refill [[id number]] [facility] Refillon 04-07-2024 Refill [id number] Madyson Moore ma 1980 F Date Provider Department Center 04/07/2024 RUKHSANA ESPINOZA MP PAIN Medical Pavi Family History Problem Relation Age of Onset Brain cancer Mother Breast cancer Sister Kidney cancer Maternal Grandmother Prostate cancer Paternal Grandfather Cancer Father Cancer Sister Family Status - Relation Status Age at Mother Sister Maternal Grandmother Paternal Grandfather Father Sister Reason for Visit and Comments: Med Refill [[id number]] [facility] Nico 03-22-2024 L Specimen: [id number] Received: 03/23/24 Status: SOUNaty Req Num: [id number] Spec Type: Cytology Subm Dr: Harry Pettit MD Tissues: A FNA SLIDES NOPATH (RT PAROTID MASS) Procedures: HE/2, p63, Cyto Int and Re, p40, PAPSTN/9 Age/ Patient Sex Location Account Attending Physician Elvi Moore 43/F [facility] [id number] Harry Pettit MD SPEC NUM: [id number] RECD: 03/23/24 STATUS: JOHNATHON REQ NUM: [id number] JHONATAN: 03/22/24- [facility] DR: Harry Pettit MD ENTERED: 03/23/24-1410 [facility] DR: Monique,Leann Acharya MD SPEC TYPE: Cytology DEPT: RHODA NCJATINDER ENTERED BY: [id number] RECV BY: [id number] ORDERED: HE/2, p63, Cyto Int and Re, [...] deeper level of sections for IHC CPT: 09460, 85095 Addendum Signed (signature on file) Walker-Jj Roldan [...] the Specimen: [id number] Received: 03/23/24-1407 Status: JOHNATHON Damon Num: [id number] Spec Type: Cytology Subm Dr: Harry Pettit MD Tissues: A FNA SLIDES NOPATH (RT PAROTID MASS) Procedures: HE/2, p63, Cyto Int and Re, p40, PAPSTN/9 Patient: Elvi Moore [id number] (Continued) Specimen: [id number] Received: 03/23/24 (Continued) Pathological Diagnosis (Continued) Signed (signature on file) Luis F Roldan MD 03/29/24 1124 Specimen: [id number] Received: 03/23/24 Status: JOHNATHON Nelson Num: [id number] Spec Type: Cytology Subm Dr: Harry Pettit MD Tissues: A FNA SLIDES NOPATH (RT PAROTID MASS) Procedures: HE/2, p63, Cyto Int and Re, p40, PAPSTN/9 Patient: Elvi Moore [id number] (Continued) Specimen: [id number] Received: 03/23/24 (Continued) Pathological [...] slides to be stained pap for microscopic examination.(CC/nh) CPT Codes 54133 74022 Specimen: [id number] Received: 03/23/24 Status: JOHNATHON Damon Num: [id number] Spec Type: Cytology Subm Dr: Harry Pettit MD Tissues: A FNA SLIDES NOPATH (RT PAROTID MASS) Procedures: HE/2, p63, Cyto Int and Re, p40, PAPSTN/9 Patient: Elvi Moore [id number] (Continued) Signed (signature on file) Walker-Jj Roldan MD 03/29/24 1124 Normal [facility] Follow-Upon 03-17-2024 Follow-Up [id number] Madyson Moore 1980 F Date Provider Department Center 03/17/2024 Abby-RUKHSANA MILLER PAIN Medical Pavi Family History Problem Relation Age of Onset Brain cancer Mother Breast cancer Sister Kidney cancer Maternal Grandmother Prostate cancer Paternal Grandfather Cancer Father Cancer Sister Family Status - Relation Status Age at Mother Sister Maternal Grandmother Paternal Grandfather Father Sister Level of Service:97339 [place] OFFICE/OUTPATIENT ESTABLISHED LOW MDM 20 MIN Reason for Visit and Comments: Knee Pain [688931] - Left knee pain Normal [facility] Screenson 03-08-2024 Screens [id number]#1.00TIFF Normal [facility] Patient Educationon 03-07-20 Patient Education Nephrology Dietary [...] ? 8 oz (237 mL) of milk, ntdebmm-gjokqaqgkbff-sbny y milk, and calcium-fortifiedfruit juice. Calcium-fortified means [...] Spinach (cooked), rhubarb, beets, sweet potatoes, and Cuban chard. ? Peanuts. ? Potato chips, malagasy fries, and baked potatoes with skin on. ? Nuts and nut products. ? Chocolate. ? If you regularly take a diuretic medicine, make sure to eat at least 1 or 2 servings of fruits or vegetables that are high in potassium each day. These include: ? Avocado. ? Banana. ? [place], prune, carrot, or tomato juice. ? Baked [...] fish oil, or vitamin B6. ? Take wjqe-trb-aaxxzvq and prescription medicines only as told by your health care provider. These include supplements. What foods sh (more content not included)... Normal [facility] RAD - MISCon 03-07-2024 [facility] [id number] [id number]#1.00TIFF Normal [facility] Urology Office/Clinic Noteon 03-07-2024 Urology Office/Clinic Note [...] 10/12/23. Stone analysis: 60% CaOx Di, 35% Desha. 5% Phos Hydoxyl. KUB 03/03/24 [facility] - [...] Contact Information STEPH AVITIA, ELIZABETH Yi, URL [address] [place] [place] [address] [phone] Additional Instructions: 1 yr w/ KUB Patient [...] 100 mg= 1 tab(s), Oral multivitamin, Daily Holly 325 mg-5 mg oral tablet, 1 tab(s), [...] virus vaccine, inactivated 07/29/2022 Recorded SARS-CoV-2 (COVID-19) mRNAMUL.ORD![id number] 07/29/2022 Recorded SARS-CoV-2 (COVID-19) mRNA BNT-162b2 vax 10/08/2021 Recorded SARS-CoV-2 (COVID-19) mRNA BNT-162b2 vax 01/30/2021 Recorded SARS-CoV-2 (COVID-19) mRNA BNT-162b2 vax 01/09/2021 Recorded influenza virus vaccine, inactivated 07/11/2020 R (more content not included)... Normal [facility] Comment on above: Result Comment: Elec tronically Signed By: STEPH ELIZABETH AVITIA\.br\Date and Time Signed: 03/07/24 16:31 EDT\.br\Electronically Co-Signed By: Kandice Hardy\.br\Date and Time Co-Signed: 03/07/24 16:30 EDT CBC AND AUTO DIFFon 03-06-20 ABSOLUTE BASOPHIL 0.0 X10E9/L Normal 0.0-0.2 [facility] Comment on above: Performed By: #### 3 094-0, 76724-3, 2074-0, 2028-06, PIT MANAGER, 2951- 2, 2777-1, 3084-1, 2731-8 #### [facility] ([id number]) [address], [address] [place] [address] #### CITACU #### [facility] ([id number]) [address] [place] [address] ABSOLUTE NEUTROPHIL 4.5 X10E9/L Normal 1.5-6.6 [facility] Comment on above: Performed By: #### 3 094-0, 05988-6, 0, 2028-06, PIT MANAGER, 2951- 2, 2777-1, 3084-1, 2731-8 #### [facility] ([id number]) [address], [address] [place] [address] #### CITACU #### [facility] ([id number]) [address] [place] [address]130 Basophils/100 WBC (Bld) 0.3 % Normal [facility] Comment on above: Performed By: #### 3 094-0, 74945-6, 2074-0, 2028-06, PIT MANAGER, 2951- 2, 2777-1, 3084-1, 2731-8 #### [facility] ([id number]) [address], [address] [place] [address] #### CITACU #### [facility] ([id number]) [address] [place] [address]5633 Eosinophils (Bld) [#/Vol] 0.0 10*3/uL Normal 0.0-0.4 [facility] Comment on above: Performed By: #### 3 094-0, 02248-1, 0, 2028-06, PIT MANAGER, 2951- 2, 2777-1, 3084-1, 2731-8 #### [facility] ([id number]) [address], [address] [place] [address] #### CITACU #### [facility] ([id number]) [address] [place] [address] 72430 Eosinophils/100 WBC (Bld) 0.6 % Normal [facility] Comment on above: Performed By: #### 3 094-0, 70072-8, , 2028-06, PIT MANAGER, 2951- 2, 2777-1, 3084-1, 2731-8 #### [facility] ([id number]) [address], [address] [place] [address] #### CITACU #### [facility] ([id number]) [address] [place] [address] 06969 Erythrocyte distribution width (RBC) [Ratio] 14.6 % Normal 11.5-15.0 [facility] Comment on above: Performed By: #### 3 094-0, 14888-6, 0, 2028-06, PIT MANAGER, 2951- 2, 2777-1, 3084-1, 2731-8 #### [facility] ([id number]) [address], [address] [place] [address] #### CITACU #### [facility] ([id number]) [address] [place] [address] 97663 Hematocrit (Bld) [Volume fraction] 39.4 % Normal 35-47 [facility] Comment on above: Performed By: #### 3 094-0, 53477-3, 0, 2028-06, PIT MANAGER, 2951- 2, 2777-1, 3084-1, 273-8 #### [facility] ([id number]) [address], [address] [place] [address] #### CITACU #### [facility] ([id number]) [address] [place] [address] 24081 Hemoglobin (Bld) [Mass/Vol] 13.1 g/dL Normal 11.7-15.5 [facility] Comment on above: Performed By: #### 3 094-0, 82976-4, , 2028-06, PIT MANAGER, 2951- 2, 2777-1, 3084-1, 273-8 #### [facility] ([id number]) [address], [address] [place] [address] #### CITACU #### [facility] ([id number]) [address] [place] [address] 46882 Lymphocytes (Bld) [#/Vol] 2.0 10*3/uL Normal 1.0-3.5 [facility] Comment on above: Performed By: #### 3 094-0, 47856-3, , 2028-06, PIT MANAGER, 2951- 2, 2777-1, 3084-1, 273-8 #### [facility] ([id number]) [address], [address] [place] [address] #### CITACU #### [facility] ([id number]) [address] [place] [address] 31526 Lymphocytes/100 WBC (Bld) 28.1 % Normal [facility] Comment on above: Performed By: #### 3 094-0, 43148-8, , 2028-06, PIT MANAGER, 2951- 2, 2777-1, 3084-1, 273-8 #### [facility] ([id number]) [address], [address] [place] [address] #### CITACU #### [facility] ([id number]) [address] [place] [address] 42390 MCH (RBC) [Entitic mass] 28.2 pg Normal 27-34 [facility] Comment on above: Performed By: #### 3 094-0, 09307-7, , 2028-06, PIT MANAGER, 2951- 2, 2777-1, 3084-1, 273-8 #### [facility] ([id number]) [address] [place] [address] #### CITACU #### [facility] ([id number]) [address] [place] [address] 10937 MCHC (RBC) [Mass/Vol] 33.2 g/dL Normal 32-36 [facility] Comment on above: Performed By: #### 3 094-0, 41668-6, , 2028-06, PIT MANAGER, 2951- 2, 2777-1, 3084-1, 273-8 #### [facility] ([id number]) [address], [address] [place] [address] #### CITACU #### [facility] ([id number]) [address] [place] [address] 41920 MCV (RBC) [Entitic vol] 85 fL Normal 80-100 [facility] Comment on above: Performed By: #### 3 094-0, 67897-3, 0, 2028-06, PIT MANAGER, 2951- 2, 2777-1, 3084-1, 273-8 #### [facility] ([id number]) [address], [address] [place] [address] #### CITACU #### [facility] ([id number]) [address] [place] [address] 21628 Monocytes (Bld) [#/Vol] 0.6 10*3/uL Normal 0-0.9 [facility] Comment on above: Performed By: #### 3 094-0, 49785-8, 2074-0, 2028-06, PIT MANAGER, 2951- 2, 2777-1, 3084-1, 2731-8 #### [facility] ([id number]) [address] [facility], [address] [place] [address] #### CITACU #### [facility] ([id number]) [address] [place] [address]328 Monocytes/100 WBC (Bld) 8.3 % Normal [facility] Comment on above: Performed By: #### 3 094-0, 59957-6, 2074-0, 2028-06, PIT MANAGER, 2951- 2, 2777-1, 3084-1, 2731-8 #### [facility] ([id number]) [address] [facility], [address] [place] [address] #### CITACU #### [facility] ([id number]) [address] [place] [address] 91897 Neutrophils/100 WBC (Bld) 62.7 % Normal [facility] Comment on above: Performed By: #### 3 094-0, 44462-4, 2074-0, 2028-06, PIT MANAGER, 2951- 2, 2777-1, 3084-1, 2731-8 #### [facility] ([id number]) [address], [address] [place] [address] #### CITACU #### [facility] ([id number]) [address] [place] [address] 96716 Platelet mean volume (Bld) [Entitic vol] 8.3 fL Normal 7-12 [facility] Comment on above: Performed By: #### 3 094-0, 16716-2, , 2028-06, PIT MANAGER, 2951- 2, 2777-1, 3084-1, 2731-8 #### [facility] ([id number]) [address] [place] [address] #### CITACU #### [facility] ([id number]) [address] [place] [address] 43743 Platelets (Bld) [#/Vol] 279 10*3/uL Normal 150-450 [facility] Comment on above: Performed By: #### 3 094-0, 77418-0, , 2028-06, PIT MANAGER, 2951- 2, 2777-1, 3084-1, 2731-8 #### [facility] ([id number]) [address] [place] [address] #### CITACU #### [facility] ([id number]) [address] [place] [address] 92502 RBC COUNT 4.63 X10E12/L Normal 3.80-5.20 [facility] Comment on above: Performed By: #### 3 094-0, 59028-1, , 2028-06, PIT MANAGER, 2951- 2, 2777-1, 3084-1, 2731-8 #### [facility] ([id number]) [address] [place] [address] #### CITACU #### [facility] ([id number]) [address] [place] [address] 37058 WBC (Bld) [#/Vol] 7.2 10*3/uL Normal 4.0-11.0 [facility] Comment on above: Performed By: #### 3 094-0, 46682-0, 0, 2028-06, PIT MANAGER, 2951- 2, 2777-1, 3084-1, 2731-8 #### [facility] ([id number]) [address] [facility], [address] [place] [address] #### CITACU #### [facility] ([id number]) [address] [place] [address] 83669 COMPREHENSIVE METABOLIC PANE [facility] 03-06-2024 Albumin [Mass/Vol] 4.4 g/dL Normal 3.2-5.3 [facility] Comment on above: Performed By: #### 3 094-0, 36058-4, , 2028-06, PIT MANAGER, 2951- 2, 2777-1, 3084-1, 2731-8 #### [facility] ([id number]) [address], [address] [place] [address] #### [facility] #### [facility] ([id number]) [address] [place] [address] 55713 ALP [Catalytic activity/Vol] 96 U/L Normal 39-130 [facility] Comment on above: Performed By: #### 3 094-0, 85767-2, , 2028-06, PIT MANAGER, 2951- 2, 2777-1, 3084-1, 2731-8 #### [facility] ([id number]) [address] [facility] [address] [address], [address] [place] [address] #### [place] #### [facility] ([id number]) [address] [place] [address] 13592 ALT [Catalytic activity/Vol] 16 U/L Normal 0-31 [facility] Comment on above: Performed By: #### 3 094-0, 82835-7, , 2028-06, PIT MANAGER, 2951- 2, 2777-1, 3084-1, 2731-8 #### [facility] ([id number]) [address], [address] [place] [address] #### [place] #### [facility] ([id number]) [address] [place] [address] 68590 Anion gap [Moles/Vol] 6 mmol/L Normal 5-15 [facility] Comment on above: Performed By: #### 3 094-0, 88926-9, 0, 2028-06, PIT MANAGER, 2951- 2, 2777-1, 3084-1, 2731-8 #### [facility] ([id number]) [address], [address] [place] [address] #### [place] #### [facility] ([id number]) [address] [place] [address] 46903 AST [Catalytic activity/Vol] 22 U/L Normal 0-41 [facility] Comment on above: Performed By: #### 3 094-0, 38889-2, , 2028-06, PIT MANAGER, 2951- 2, 2777-1, 3084-1, 2731-8 #### [facility] ([id number]) [address], [address] [place] [address] #### [place] #### [facility] ([id number]) [address] [place] [address] 44288 Bilirubin [Mass/Vol] 0.4 mg/dL Normal 0.3-1.2 [facility] Comment on above: Performed By: #### 3 094-0, 28228-7, 0, 2028-06, PIT MANAGER, 2951- 2, 2777-1, 3084-1, 2731-8 #### [facility] ([id number]) [address], [address] [place] [address] #### [place] #### [facility] ([id number]) [address] [place] [address] 69070 Calcium [Mass/Vol] 8.7 mg/dL Normal 8.5-10.5 [facility] Comment on above: Performed By: #### 3 094-0, 33879-5, , 2028-06, PIT MANAGER, 2951- 2, 2777-1, 3084-1, 2731-8 #### [facility] ([id number]) [address], [address] [place] [address] #### [place] #### [facility] ([id number]) [address] [place] [address] 68510 Chloride [Moles/Vol] 107 mmol/L Normal 98-109 [facility] Comment on above: Performed By: #### 3 094-0, 34863-9, , 2028-06, PIT MANAGER, 2951- 2, 2777-1, 3084-1, 2731-8 #### [facility] ([id number]) [address], [address] [place] [address] #### [place] #### [facility] ([id number]) [address] [place] [address] 03092 CO2 [Moles/Vol] 26 mmol/L Normal 22-32 [facility] Comment on above: Performed By: #### 3 094-0, 67310-8, , 2028-06, PIT MANAGER, 2951- 2, 2777-1, 3084-1, 2731-8 #### [facility] ([id number]) [address], [address] [place] [address] #### [place] #### [facility] ([id number]) [address] [place] [address] 52403 Creatinine [Mass/Vol] 0.64 mg/dL Normal 0.40-1.00 [facility] Comment on above: Result Comment: METH OD TRACEABLE TO IDMS STANDARD Performed By: #### 3 094-0, 74653-7, , 2028-06, PIT MANAGER, 2951-2, 2777-1, 3084-1, 2731-8 #### [facility] ([id number]) [address] [facility] [address], [address] [place] [address] #### [place] #### [facility] ([id number]) [address] [place] [address] 69441 eGFR (CKD-EPI) NON-RACE DEPENDENT >90 Normal >59 [facility] Comment on above: Result Comment: Reported eGFR is based on the CKD-EPI 2020 equation that does not use a race coefficient. Performed By: #### 3 094-0, 24956-9, , 2028-06, PIT MANAGER, 2951-2, 2777-1, 3084-1, 2731-8 #### [facility] ([id number]) [address] [facility] [address] [address], [address] [place] [address] #### [place] #### [facility] ([id number]) [address] [place] [address] 93020 Glucose [Mass/Vol] 88 mg/dL Normal 65-99 [facility] Comment on above: Performed By: #### 3 094-0, 93057-4, , 2028-06, PIT MANAGER, 2951- 2, 2777-1, 3084-1, 2731-8 #### [facility] ([id number]) [address] [address], [address] [place] [address] #### [place] #### [facility] ([id number]) [address] [place] [address] 46441 Potassium [Moles/Vol] 3.6 mmol/L Normal 3.5-5.0 [facility] Comment on above: Performed By: #### 3 094-0, 77636-1, 0, 2028-06, PIT MANAGER, 2951- 2, 2777-1, 3084-1, 2731-8 #### [facility] ([id number]) [address] [facility], [address] [place] [address] #### [place] #### [facility] ([id number]) [address] [place] [address] 79553 Protein [Mass/Vol] 8.0 g/dL Normal 6.0-8.0 [facility] Comment on above: Performed By: #### 3 094-0, 17796-8, , 2028-06, PIT MANAGER, 2951- 2, 2777-1, 3084-1, 2731-8 #### [facility] ([id number]) [address] [facility], [address] [place] [address] #### [place] #### [facility] ([id number]) [address] [place] [address] 56368 Sodium [Moles/Vol] 139 mmol/L Normal 134-146 [facility] Comment on above: Performed By: #### 3 094-0, 33070-5, , 2028-06, PIT MANAGER, 2951- 2, 2777-1, 3084-1, 2731-8 #### [facility] ([id number]) [address], [address] [place] [address] #### [place] #### [facility] ([id number]) [address] [place] [address] 27464 Urea nitrogen [Mass/Vol] 14 mg/dL Normal 5-23 [facility] Comment on above: Performed By: #### 3 094-0, 73254-1, , 2028-06, PIT MANAGER, 2951- 2, 2777-1, 3084-1, 2731-8 #### [facility] ([id number]) [address], [address] [place] [address] #### [place] #### [facility] ([id number]) [address] [place] [address], [place] [address] CT ABDOMEN AND PELVIS WO CON Ton [...] on 03/06/2024 11:46 PM Normal [facility] URINE CULTUREon 03-06-2024 Bacteria identified Cx Nom (U) SPECIMEN NOTES URINE RECEIVED WITHOUT PRESERVATIVE CULTURE RESULTS 10-50,000 ORGANISMS/mL NORMAL UROGENITAL ALE Normal [facility] Comment on above: Performed By: #### 3 094-0, 21557-5, 5-0, 2027-9, PIT MANAGER, 2951- 2, 2777-1, 3084-1, 2731-8 #### [facility] ([id number]) [address], [address] [place] [address] #### [place] #### [facility] ([id number]) [address] [place] [address] 53099 URN MACROSCOPIC NURon 2023 BILIRUBIN JUNIOR Negative Normal NEG [facility] Comment on above: Performed By: #### 3 094-0, 17595-2, , 2028-06, PIT MANAGER, 2951- 2, 2777-1, 3084-1, 2731-8 #### [facility] ([id number]) [address], [address] [place] [address] #### [place] #### [facility] ([id number]) [address] [place] [address] 66973 BLOOD/HGB JUNIOR Large Abnormal NEG [facility] Comment on above: Performed By: #### 3 094-0, 96277-9, , 2028-06, PIT MANAGER, 2951- 2, 2777-1, 3084-1, 2731-8 #### [facility] ([id number]) [address], [address] [place] [address] #### [place] #### [facility] ([id number]) [address] [place] [address] 16847 GLUCOSE JUNIOR Negative Normal NEG [facility] Comment on above: Performed By: #### 3 094-0, 32526-9, , 2028-06, PIT MANAGER, 2951- 2, 2777-1, 3084-1, 2731-8 #### [facility] ([id number]) [address], [address] [place] [address] #### [place] #### [facility] ([id number]) [address] [place] [address] 09107 KETONES JUNIOR Negative Normal NEG [facility] Comment on above: Performed By: #### 3 094-0, 44785-1, , 2028-06, PIT MANAGER, 2951- 2, 2777-1, 3084-1, 2731-8 #### [facility] ([id number]) [address], [address] [place] [address] #### [place] #### [facility] ([id number]) [address] [place] [address] 56004 LEUKOCYTE ESTERASE JUNIOR Negative Normal NEG [facility] Comment on above: Performed By: #### 3 094-0, 59499-0, 2074-0, 2028-06, PIT MANAGER, 2951- 2, 2777-1, 3084-1, 2731-8 #### [facility] ([id number]) [address], [address] [place] [address] #### [place] #### [facility] ([id number]) [address] [place] [address] 13570 NITRITE JUNIOR Negative Normal NEG [facility] Comment on above: Performed By: #### 3 094-0, 27752-3, 0, 2028-06, PIT MANAGER, 2951- 2, 2777-1, 3084-1, 2731-8 #### [facility] ([id number]) [address], [address] [place] [address] #### [place] #### [facility] ([id number]) [address] [place] [address] 11514 PH JUNIOR 7.0 Normal 5.0-8.5 [facility] Comment on above: Performed By: #### 3 094-0, 62162-6, 2074-0, 2028-06, PIT MANAGER, 2951- 2, 2777-1, 3084-1, 2731-8 #### [facility] ([id number]) [address], [address] [place] [address] #### [place] #### [facility] ([id number]) [address] [place] [address] 27724 PROTEIN JUNIOR 30 mg/dL Abnormal NEG [facility] Comment on above: Performed By: #### 3 094-0, 62335-2, , 2028-06, PIT MANAGER, 2951- 2, 2777-1, 3084-1, 2731-8 #### [facility] ([id number]) [address], [address] [place] [address] #### [place] #### [facility] ([id number]) [address] [place] [address] 50239 SPECIFIC GRAVITY JUNIOR 1.025 Normal 1.003-1.035 [facility] Comment on above: Performed By: #### 3 094-0, 64189-4, , 2028-06, PIT MANAGER, 2951- 2, 2777-1, 3084-1, 2731-8 #### [facility] ([id number]) [address], [address] [place] [address] #### [place] #### [facility] ([id number]) [address] [place] [address] 00733 UROBILINOGEN JUNIOR 1.0 eu/dL Normal <1.1 [facility] Comment on above: Performed By: #### 3 094-0, 06643-9, , 2028-06, PIT MANAGER, 2951- 2, 2777-1, 3084-1, 2731-8 #### [facility] ([id number]) [address], [address] [place] [address] #### [place] #### [facility] ([id number]) [address] [place] [address] 40290 Lab Reportson 02-22-2024 Lab Reports [id number]#1.00TIFF Normal [facility] Lab Reportson 02-18-2024 Lab Reports [id number]#1.00TIFF Normal [facility] Report[facility] 02-17-2024 Lab Reports [id number]#1.00TIFF Normal [facility] 24 HR PHOSPHORUS,URINEon URINE PHOSPHORUS 0.8 g/24h Normal 0.4-1.3 [facility] Comment on above: Performed By: #### 3 094-0, 01605-9, , 2028-06, PIT MANAGER, 2951- 2, 2777-1, 3084-1, 273-8 #### [facility] ([id number]) [address] [place] [address], [address] [place] [address] #### [place] #### [facility] ([id number]) [address] [place] [address] 75214 24 HR UR MAGNESIUMon 024 URINE MAGNESIUM 116 mg/24h Normal 72-182 [facility] Comment on above: Performed By: #### 3 094-0, 39629-7, , 2028-06, PIT MANAGER, 2951- 2, 2777-1, 3084-1, 273-8 #### [facility] ([id number]) [address] [place] [address], [address] [place] [address] #### [place] #### [facility] ([id number]) [address] [place] [address] 59859 24 HR URINE CALCIUMon 2023 URINE CALCIUM 134 mg/24h Normal 50-250 [facility] Comment on above: Performed By: #### 3 094-0, 33843-8, , 2028-06, PIT MANAGER, 2951- 2, 2777-1, 3084-1, 2731-8 #### [facility] ([id number]) [address] [place] [address], [address] [place] [address] #### [place] #### [facility] ([id number]) [address] [place] [address] 51360 24 HR URINE CREATININEon -2023 URINE CREATININE 0.88 g/24h Normal 0.80-1.80 [facility] Comment on above: Performed By: #### 3 094-0, 14115-1, , 2028-06, PIT MANAGER, 2951- 2, 2777-1, 3084-1, 2731-8 #### [facility] ([id number]) [address] [facility] [address], [address] [place] [address] #### [place] #### [facility] ([id number]) [address] [place] [address] 85338 24 HR URINE SODIUMon 024 URINE SODIUM 189 mmol/24h Normal 40-220 [facility] Comment on above: Performed By: #### 3 094-0, 08826-5, , 2028-06, PIT MANAGER, 2951- 2, 2777-1, 3084-1, 273-8 #### [facility] ([id number]) [address] [facility], [address] [place] [address] #### [place] #### [facility] ([id number]) [address] [place] [address] 46035 24 HR URINE URIC ACIDon URINE URIC ACID 0.4 g/24h Normal 0.3-0.8 [facility] Comment on above: Performed By: #### 3 094-0, 21239-8, , 2028-06, PIT MANAGER, 2951- 2, 2777-1, 3084-1, 2731-8 #### [facility] ([id number]) [address], [address] [place] [address] #### [place] #### [facility] ([id number]) [address] [place] [address] 19154 BLOOD UREA NITROGENon 2023 Urea nitrogen [Mass/Vol] 9 mg/dL Normal 5-23 [facility] Comment on above: Performed By: #### 3 094-0, 51773-7, 0, 2028-06, PIT MANAGER, 2951- 2, 2777-1, 3084-1, 2731-8 #### [facility] ([id number]) [address] [facility] [address] [address], [address] [place] [address] #### [place] #### [facility] ([id number]) [address] [place] [address] 31630 CALCIUMon 02-15-2024 Calcium [Mass/Vol] 9.0 mg/dL Normal 8.5-10.5 [facility] Comment on above: Performed By: #### 3 094-0, 38490-5, , 2028-06, PIT MANAGER, 2951- 2, 2777-1, 3084-1, 2731-8 #### [facility] ([id number]) [address] [facility] [address] [address], [address] [place] [address] #### [place] #### [facility] ([id number]) [address] [place] [address] 76167 CARBON DIOXIDEon 02-15-2024 CO2 [Moles/Vol] 22 mmol/L Normal 22-32 [facility] Comment on above: Performed By: #### 3 094-0, 23737-6, 0, 2028-06, PIT MANAGER, 2951- 2, 2777-1, 3084-1, 2731-8 #### [facility] ([id number]) [address] [facility], [address] [place] [address] #### [place] #### [facility] ([id number]) [address] [place] [address] [place] [address] CHLORIDEon 02-15-2024 Chloride [Moles/Vol] 111 mmol/L High 98-109 [facility] Comment on above: Performed By: #### 3 094-0, 32912-1, , 2028-06, PIT MANAGER, 2951- 2, 2777-1, 3084-1, 2731-8 #### [facility] ([id number]) [address], [address] [place] [address] #### [place] #### [facility] ([id number]) [address] [place] [address] 31769 CITRIC ACID URINEon 02-15-20 24 CITRIC ACID,24H UR 550 mg/d Normal 320-1240 [facility] Comment on above: Performed By: #### 3 094-0, 65094-3, , 2028-06, PIT MANAGER, 2951- 2, 2777-1, 3084-1, 2731-8 #### [facility] ([id number]) [address] [facility], [address] [place] [address] #### [place] #### [facility] ([id number]) [address] [place] [address] 18596 CITRIC ACID,UR,VOL 611 mg/L Normal [facility] Comment on above: Performed By: #### 3 094-0, 07464-8, , 2028-06, PIT MANAGER, 2951- 2, 2777-1, 3084-1, 2731-8 #### [facility] ([id number]) [address], [address] [place] [address] #### [place] #### [facility] ([id number]) [address] [place] [address] 49014 CITRIC/CREAT RATIO 593 mg/g Normal >=150 [facility] Comment on above: Result Comment: NOTE INTERPRETIVE INFORMATION: Citric Acid, Urine This test was developed and its performance characteristics determined by [facility]. It has not been cleared or approved by the [place] Food and Drug Administration. This test was performed in a CLIA certified laboratory and is intended for clinical purposes. Performed By: [facility] [address] [place] [address] 76160 Bi Specialist: Luca Mosquera MD, PhD CLIA Number: [id number] Performed By: #### 3 094-0, 03830-6, 0, 2028-06, PIT MANAGER, 2951-2, 2777-1, 3084-1, 2731-8 #### [facility] ([id number]) [address] [facility], [address] [place] [address] #### [place] #### [facility] ([id number]) [address] [place] [address] 55875 CREATININE,24H URINE 927 mg/d Normal 700-1600 [facility] Comment on above: Performed By: #### 3 094-0, 89381-8, 0, 2028-06, PIT MANAGER, 2951- 2, 2777-1, 3084-1, 2731-8 #### [facility] ([id number]) [address] [facility], [address] [place] [address] #### [place] #### [facility] ([id number]) [address] [place] [address] 31335 CREATININE,UR,VOL 103 mg/dL Normal [facility] Comment on above: Performed By: #### 3 094-0, 35040-8, 2074-0, 2028-06, PIT MANAGER, 2951- 2, 2777-1, 3084-1, 2731-8 #### [facility] ([id number]) [address] [facility], [address] [place] [address] #### [place] #### [facility] ([id number]) [address] [place] [address] 57336 HOURS COLLECTED 24 Normal [facility] Comment on above: Performed By: #### 3 094-0, 25883-6, , 2028-06, PIT MANAGER, 2951- 2, 2777-1, 3084-1, 2731-8 #### [facility] ([id number]) [address] [facility], [address] [place] [address] #### [facility] #### [facility] ([id number]) [address] [place] [address] 07911 TOT VOLUME-24H URINE 900 Normal [facility] Comment on above: Performed By: #### 3 094-0, 01132-4, , 2028-06, PIT MANAGER, 2951- 2, 2777-1, 3084-1, 2731-8 #### [facility] ([id number]) [address] [facility], [address] [place] [address] #### [facility] #### [facility] ([id number]) [address] [place] [address] 88372 CREATININEon 02-15-2024 Creatinine [Mass/Vol] 0.70 mg/dL Normal 0.40-1.00 [facility] Comment on above: Result Comment: METH OD TRACEABLE TO IDMS STANDARD Performed By: #### 3 094-0, 30144-7, , 2028-06, PIT MANAGER, 2951-2, 2777-1, 3084-1, 2731-8 #### [facility] ([id number]) [address] [facility], [address] [place] [address] #### [facility] #### [facility] ([id number]) [address] [place] [address] 87024 eGFR (CKD-EPI) NON-RACE DEPENDENT >90 Normal >59 [facility] Comment on above: Result Comment: Reported eGFR is based on the CKD-EPI 2020 equation that does not use a race coefficient. Performed By: #### 3 094-0, 72679-1, 0, 2028-06, PIT MANAGER, 2951-2, 2777-1, 3084-1, 2731-8 #### [facility] ([id number]) [address] [facility], [address] [place] [address] #### [facility] #### [facility] ([id number]) [address] [place] [address] 76497 OXALATE, TOTAL URINEon 02-14 CREATININE,24H URINE 945 mg/d Normal 700-1600 [facility] Comment on above: Result Comment: NOTE Performed By: [facility] [address] [place] [address] 55254 Bi Specialist: Luca Mosquera MD, PhD CLIA Number: [id number] Performed By: #### 3 094-0, 36777-5, , 2028-06, PIT MANAGER, 2951-2, 2777-1, 3084-1, 273-8 #### [facility] ([id number]) [address] [facility], [address] [place] [address] #### [facility] #### [facility] ([id number]) [address] [place] [address] 02771 CREATININE,UR,VOL 105 mg/dL Normal [facility] Comment on above: Performed By: #### 3 094-0, 04775-4, , 2028-06, PIT MANAGER, 2951- 2, 2777-1, 3084-1, 2731-8 #### [facility] ([id number]) [address], [address] [place] [address] #### [place] #### [facility] ([id number]) [address] [place] [address] HOURS COLLECTED 24 Normal [facility] Comment on above: Performed By: #### 3 094-0, 25831-9, 2074-0, 2028-06, PIT MANAGER, 2951- 2, 2777-1, 3084-1, 2731-8 #### [facility] ([id number]) [address] [place] [address], [address] [place] [address] #### [place] #### [facility] ([id number]) [address] [place] [address] OXALATE, PER VOLUME 32 mg/L Normal [facility] Comment on above: Performed By: #### 3 094-0, 15275-3, 2074-0, 2028-06, PIT MANAGER, 2951- 2, 2777-1, 3084-1, 273-8 #### [facility] ([id number]) [address] [place] [address], [address] [place] [address] #### [place] #### [facility] ([id number]) [address] [place] [address] OXALATE,URINE/24H 29 mg/d Normal 13-40 [facility] Comment on above: Result Comment: NOTE REFERENCE INTERVAL: Oxalate, Urine - per 24h Access complete set of age- and/or gender-specific reference intervals for this test in the [facility] Test Directory ([employer]). This test was developed and its performance characteristics determined by [employer]. It has not been cleared or approved by the [place] Food and Drug Administration. This test was performed in a CLIA certified laboratory and is intended for clinical purposes. Performed By: #### 3 094-0, 23484-9, 2074-0, 2028-06, PIT MANAGER, 2951-2, 2777-1, 3084-1, 273-8 #### [facility] ([id number]) [address] [place] [address], [address] [place] [address] #### [place] #### [facility] ([id number]) [address] [place] [address] TOT VOLUME-24H URINE 900 Normal [facility] Comment on above: Performed By: #### 3 094-0, 09344-9, 0, 2028-06, PIT MANAGER, 2951- 2, 2777-1, 3084-1, 2731-8 #### [facility] ([id number]) [address], [address] [place] [address] #### [place] #### [facility] ([id number]) [address] [place] [address] PHOSPHORUSon 02-15-2024 Phosphate [Mass/Vol] 3.7 mg/dL Normal 2.4-4.9 [facility] Comment on above: Performed By: #### 3 094-0, 02985-5, , 2028-06, PIT MANAGER, 2951- 2, 2777-1, 3084-1, 2731-8 #### [facility] ([id number]) [address], [address] [place] [address] #### [place] #### [facility] ([id number]) [address] [place] [address] Parathyrin.intact [Mass/Vol] on 02-15-2024 PTH INTACT 65 pg/mL Normal 12-88 [facility] Comment on above: Performed By: #### 3 094-0, 08010-1, , 2028-06, PIT MANAGER, 2951- 2, 2777-1, 3084-1, 2731-8 #### [facility] ([id number]) [address], [address] [place] [address] #### [place] #### [facility] ([id number]) [address] [place] [address] SODIUMon 02-15-2024 Sodium [Moles/Vol] 141 mmol/L Normal 134-146 [facility] Comment on above: Performed By: #### 3 094-0, 82838-2, 0, 2028-06, PIT MANAGER, 2951- 2, 2777-1, 3084-1, 273-8 #### [facility] ([id number]) [address], [address] [place] [address] #### [place] #### [facility] ([id number]) [address] [place] [address] URIC ACIDon 02-15-2024 Urate [Mass/Vol] 3.6 mg/dL Normal 2.6-7.2 [facility] Comment on above: Performed By: #### 3 094-0, 26847-6, , 2028-06, PIT MANAGER, 2951- 2, 2777-1, 3084-1, 273-8 #### [facility] ([id number]) [address], [address] [place] [address] #### CITACU #### [facility] ([id number]) [address] [place] [address] 14758 URINE VOLUME AND TIMEon TIME 24 h Normal [facility] Comment on above: Performed By: #### 3 094-0, 07305-3, 0, 2028-06, PIT MANAGER, 2951- 2, 2777-1, 3084-1, 2730-8 #### [facility] ([id number]) [address], [address] [place] [address] #### CITACU #### [facility] ([id number]) [address] [place] [address] 14131 TOTAL VOLUME 900 mL Normal [facility] Comment on above: Performed By: #### 3 094-0, 50168-6, 0, 2028-06, PIT MANAGER, 2951- 2, 2777-1, 3084-1, 273-8 #### [facility] ([id number]) [address], [address] [place] [address] #### CITACU #### [facility] ([id number]) [address] [place] [address] 25925 TIME 24 h Normal [facility] Comment on above: Performed By: #### 3 094-0, 14444-6, 0, 2028-06, PIT MANAGER, 2951- 2, 2777-1, 3084-1, 2731-8 #### [facility] ([id number]) [address], [address] [place] [address] #### CITACU #### [facility] ([id number]) [address] [place] [address] 66064 TOTAL VOLUME 900 mL Normal [facility] Comment on above: Performed By: #### 3 094-0, 53707-6, , 2028-06, PIT MANAGER, 2951- 2, 2777-1, 3084-1, 2731-8 #### [facility] ([id number]) [address], [address] [place] [address] #### CITACU #### [facility] ([id number]) [address] [place] [address]676 Orders Onlyon 02-04-2024 Orders Only [id number] Madyson Moore ma 1980 F Date Provider Department Center 02/04/2024 RUKHSANA ESPINOZA MP [facility] Family History Problem Relation Age of Onset Brain cancer Mother Breast cancer Sister Kidney cancer Maternal Grandmother Prostate cancer Paternal Grandfather Cancer Father Cancer Sister Family Status - Relation Status Age at Mother Sister Maternal Grandmother Paternal Grandfather Father Sister Normal [facility] Orders Onlyon 01-19-2024 Orders Only [id number] Modesto Mooreat ma 1980 F Date Provider Department Center 01/19/2024 RUKHSANA ESPINOZA MP [facility] Family History Problem Relation Age of Onset Brain cancer Mother Breast cancer Sister Kidney cancer Maternal Grandmother Prostate cancer Paternal Grandfather Cancer Father Cancer Sister Family Status - Relation Status Age at Mother Sister Maternal Grandmother Paternal Grandfather Father Sister Normal [facility] 36on 01-06-2024 36 I called patient and left a voicemail and advice to be seen in ED. Normal [facility] XR ankle LT min 3V*on 2023 XR ankle LT min 3V* [facility] [place] [address] [place], [place] [id number] XRay Report Signed Patient: Elvi Moore MR#: [id number] : 1980 Acct:[id number] Age/Sex: 43 / F ADM Date: 01/06/24 Loc: [facility] Room: Type: [facility] Attending Dr: Rianna Antonio APRN Copies to: [...] Solange Brown M.D.01/06/2024 6:47 PM Dictation Location: [place] [address] Transcribed By: [facility] 01/06/241846 Dictated By: Solange Brown MD 01/06/241845 Signed By: 01/06/241846 [facility] Follow-Upon 12-24-2023 Follow-Up [id number] Madyson Moore 1980 F Date Provider Department Center 12/24/2023 170-RUKHSANA MILLER MP [facility] Family History Problem Relation Age of Onset Brain cancer Mother Breast cancer Sister Kidney cancer Maternal Grandmother Prostate cancer Paternal Grandfather Cancer Father Cancer Sister Family Status - Relation Status Age at Mother Sister Maternal Grandmother Paternal Grandfather Father Sister Level of Service:80077 [place] OFFICE/OUTPATIENT ESTABLISHED LOW MDM 20 MIN Reason for Visit and Comments: Follow-up [914314] - Chief complaint : L knee Normal [facility] Transfer Inon 11-05-2023 Transfer In [id number] Normal [facility] Ferritinon 05-28-2023 Ferritin [Mass/Vol] 4.9 ng/mL Low 11.0-306.8 [facility] Comment on above: Result Comment: PERF ORMED BY: [place] [address] PATHOLOGIST WAFFLE MACHINE OPERATOR MELISSA WAGNER M.D. Performed By: #### S CAN CBC, JANESSA, FE and TIBC #### [address] Iron and TIBC Profileon 05-11 % Iron Saturation 2.5 % Low 20-50 [facility] Comment on above: Performed By: #### S CAN CBC, JANESSA, FE and TIBC #### [address] Iron [Mass/Vol] 13 ug/dL Low 50-212 [facility] Comment on above: Performed By: #### S CAN CBC, JANESSA, FE and TIBC #### [address] Total Iron Binding Capacity 517 ug/dL High 255-450 [facility] Comment on above: Performed By: #### S CAN CBC, JANESSA, FE and TIBC #### [address] Transferrin [Mass/Vol] 369 mg/dL High 203-362 [facility] Comment on above: Performed By: #### S CAN CBC, JANESSA, FE and TIBC #### [place] [address] [place] Scan and CBCon 05-28-2023 Anisocytosis Ql (Bld) Marked Normal [facility] Comment on above: Performed By: #### S CAN CBC, JANESSA, FE and TIBC #### [address] Basophils (Bld) [#/Vol] 0.0 10*3/uL Normal 0.0-0.2 [facility] Comment on above: Performed By: #### S CAN CBC, JANESSA, FE and TIBC #### [address] Basophils/100 WBC (Bld) 0.3 % Normal . [facility] Comment on above: Performed By: #### S CAN CBC, JANESSA, FE and TIBC #### [address] Eosinophils (Bld) [#/Vol] 0.0 10*3/uL Normal 0.0-0.45 [facility] Comment on above: Performed By: #### S CAN CBC, JANESSA, FE and TIBC #### [address] Eosinophils/100 WBC (Bld) 0.6 % Normal . [facility] Comment on above: Performed By: #### S CAN CBC, JANESSA, FE and TIBC #### [address] Erythrocyte distribution width (RBC) [Ratio] 20.1 % High 11.9-15.3 [facility] Comment on above: Performed By: #### S CAN CBC, JANESSA, FE and TIBC #### [address] Hematocrit (Bld) [Volume fraction] 28.6 % Low 34.0-46.4 [facility] Comment on above: Performed By: #### S CAN CBC, JANESSA, FE and TIBC #### [address] Hemoglobin (Bld) [Mass/Vol] 8.9 g/dL Low 11.8-15.4 [facility] Comment on above: Performed By: #### S CAN CBC, JANESSA, FE and TIBC #### [address] Hypochromasia Moderate Normal [facility] Comment on above: Performed By: #### S CAN CBC, JANESSA, FE and TIBC #### [address] Lymphocytes (Bld) [#/Vol] 2.6 10*3/uL Normal 1.00-4.8 [facility] Comment on above: Performed By: #### S CAN CBC, JANESSA, FE and TIBC #### [address] Lymphocytes/100 WBC (Bld) 37.7 % Normal . [facility] Comment on above: Performed By: #### S CAN CBC, JANESSA, FE and TIBC #### [address] MCH (RBC) [Entitic mass] 20.5 pg Low 24.7-34.3 [facility] Comment on above: Performed By: #### S CAN CBC, JANESSA, FE and TIBC #### [address] MCV (RBC) [Entitic vol] 65.8 fL Low 80-100 [facility] Comment on above: Performed By: #### S CAN CBC, JANESSA, FE and TIBC #### [address] Mean Corpuscular HGB Conc 31.1 g/dL Low 32.0-35.0 [facility] Comment on above: Performed By: #### S CAN CBC, JANESSA, FE and TIBC #### [address] Microcytosis Marked Normal [facility] Comment on above: Performed By: #### S CAN CBC, JANESSA, FE and TIBC #### [address] Monocytes (Bld) [#/Vol] 0.4 10*3/uL Normal 0.0-0.8 [facility] Comment on above: Performed By: #### S CAN CBC, JANESSA, FE and TIBC #### [address] Monocytes/100 WBC (Bld) 6.3 % Normal . [facility] Comment on above: Performed By: #### S CAN CBC, JANESSA, FE and TIBC #### [address] Neutrophils (Bld) [#/Vol] 3.8 10*3/uL Normal 1.8-7.7 [facility] Comment on above: Performed By: #### S CAN CBC, JANESSA, FE and TIBC #### [address] Neutrophils/100 WBC (Bld) 55.1 % Normal . [facility] Comment on above: Performed By: #### S CAN CBC, JANESSA, FE and TIBC #### [address] NRBC% 0.1 /100{WBC} Normal 0-0.5 [facility] Comment on above: Performed By: #### S CAN CBC, JANESSA, FE and TIBC #### [address] Ovalocytes Slight Normal [facility] Comment on above: Performed By: #### S CAN CBC, JANESSA, FE and TIBC #### [address] Platelet Estimate Normal Normal Normal [facility] Comment on above: Performed By: #### S CAN CBC, JANESSA, FE and TIBC #### [address] Platelet mean volume (Bld) [Entitic vol] 8.7 fL Normal 6.3-10.7 [facility] Comment on above: Performed By: #### S CAN CBC, JANESSA, FE and TIBC #### [address] Platelet Morphology Normal Normal Normal [facility] Comment on above: Result Comment: PERF ORMED BY: [place] [address] PATHOLOGIST WAFFLE MACHINE OPERATOR MELISSA WAGNER M.D. Performed By: #### S CAN CBC, JANESSA, FE and TIBC #### [address] Platelets (Bld) [#/Vol] 218 10*3/uL Normal 150-450 [facility] Comment on above: Performed By: #### S CAN CBC, JANESSA, FE and TIBC #### [address] Poikilocytosis Slight Normal [facility] Comment on above: Performed By: #### S CAN CBC, JANESSA, FE and TIBC #### [address] RBC (Bld) [#/Vol] 4.34 10*6/uL Normal 3.60-5.00 [facility] Comment on above: Performed By: #### S CAN CBC, JANESSA, FE and TIBC #### [address] Schistocytes Slight Normal [facility] Comment on above: Performed By: #### S CAN CBC, JANESSA, FE and TIBC #### [address] WBC (Bld) [#/Vol] 6.9 10*3/uL Normal 3.8-11.6 [facility] Comment on above: Performed By: #### S CAN CBC, JANESSA, FE and TIBC #### [address] AMYLASEon 01-25-2023 Amylase [Catalytic activity/Vol] 64 U/L Normal 25-115 [facility] Comment on above: Performed By: #### B MP, LIPA, YVETTE, LIVER #### [facility] [address] [place] [address] [address] Idania Roldan CBC AUTO DIFFon 01-25-2023 BASO # 0.0 103/ul Normal 0.0-0.1 [facility] Comment on above: Performed By: #### B MP, LIPA, YVETTE, LIVER #### [facility] [address] [place] [address] Dr. Idania Roldan Basophils/100 WBC (Bld) 0.3 % Normal 0.2-2.0 [facility] Comment on above: Performed By: #### B MP, LIPA, YVETTE, LIVER #### [facility] [address] [place] [address] Dr. Idania Roldan EO # 0.1 103/ul Normal 0.0-0.7 [facility] Comment on above: Performed By: #### B MP, LIPA, YVETTE, LIVER #### [facility] [address] [place] [address] Dr. Idania Roldan Eosinophils/100 WBC (Bld) 1.0 % Normal 0.9-7.0 [facility] Comment on above: Performed By: #### B MP, LIPA, YVETTE, LIVER #### [facility] [address] [place] [address] Dr. Idania Roldan Erythrocyte distribution width (RBC) [Ratio] 17.2 % Critically high 11.0-15.0 [facility] Comment on above: Performed By: #### B MP, LIPA, YVETTE, LIVER #### [facility] [address] [place] [address] Dr. Idania Roldan Hematocrit (Bld) [Volume fraction] 33.9 % Critically low 36.0-48.0 [facility] Comment on above: Performed By: #### B MP, LIPA, YVETTE, LIVER #### [facility] [address] [place] [address] Dr. Idania Roldan Hemoglobin (Bld) [Mass/Vol] 10.1 g/dL Critically low 12.0-16.0 [facility] Comment on above: Performed By: #### B MP, LIPA, YVETTE, LIVER #### [facility] [address] [place] [address] Dr. Idania Roldan IG # 0.01 10e3/ul Normal 0.00-0.03 [facility] Comment on above: Performed By: #### B MP, LIPA, YVETTE, LIVER #### [facility] [address] [place] [address] Dr. Idania Roldan IG % 0.2 % Normal 0.0-0.5 [facility] Comment on above: Performed By: #### B MP, LIPA, YVETTE, LIVER #### [facility] [address] [place] [address] Dr. Idania Roldan LYMPH # 1.7 103/ul Normal 1.2-3.8 [facility] Comment on above: Performed By: #### B MP, LIPA, YVETTE, LIVER #### [facility] [address] [place] [address] Dr. Idania Roldan Lymphocytes/100 WBC (Bld) 27.9 % Normal 20.5-60.0 [facility] Comment on above: Performed By: #### B MP, LIPA, YVETTE, LIVER #### [facility] [address] [place] [address] Dr. Idania Roldan MANUAL DIFF REQ NO Normal [facility] Comment on above: Performed By: #### B MP, LIPA, YVETTE, LIVER #### [facility] [address] [place] [address] Dr. Idania Roldan MCH (RBC) [Entitic mass] 20.7 pg Critically low 26.7-34.0 [facility] Comment on above: Performed By: #### B MP, LIPA, YVETTE, LIVER #### [facility] [address] [place] [address] Dr. Idania Roldan MCHC (RBC) [Mass/Vol] 29.8 g/dL Critically low 29.9-35.2 [facility] Comment on above: Performed By: #### B MP, LIPA, YVETTE, LIVER #### [facility] [address] [place] [address] Dr. Idania Roldan MCV (RBC) [Entitic vol] 69.6 fL Critically low 81.0-99.0 [facility] Comment on above: Performed By: #### B MP, LIPA, YVETTE, LIVER #### [facility] [address] [place] [address] Dr. Idania Roldan MONO # 0.4 103/ul Normal 0.3-0.8 [facility] Comment on above: Performed By: #### B MP, LIPA, YVETTE, LIVER #### [facility] [address] [place] [address] Dr. Idania Roldan Monocytes/100 WBC (Bld) 7.1 % Normal 1.7-12.0 [facility] Comment on above: Performed By: #### B MP, LIPA, YVETTE, LIVER #### [facility] [address] [place] [address] Dr. Idania Roldan NEUT # 3.8 103/ul Normal 1.4-6.5 [facility] Comment on above: Performed By: #### B MP, LIPA, YVETTE, LIVER #### [facility] [address] [place] [address] Dr. Idania Roldan Neutrophils/100 WBC (Bld) 63.5 % Normal 43.0-75.0 [facility] Comment on above: Performed By: #### B MP, LIPA, YVETTE, LIVER #### [facility] [address] [place] [address] Dr. Idania Roldan Platelet mean volume (Bld) [Entitic vol] 9.3 fL Critically low 9.5-13.5 [facility] Comment on above: Performed By: #### B MP, LIPA, YVETTE, LIVER #### [facility] [address] [place] [address] Dr. Idania Roldan PLT 294 103/ul Normal 150-450 [facility] Comment on above: Performed By: #### B MP, LIPA, YVETTE, LIVER #### [facility] [address] [place] [address] Dr. Idania Roldan RBC 4.87 106/ul Normal 4.20-5.40 [facility] Comment on above: Performed By: #### B MP, LIPA, YVETTE, LIVER #### [facility] [address] [place] [address] Dr. Idania Roldan WBC 6.0 103/ul Normal 4.0-11.0 [facility] Comment on above: Performed By: #### B MP, LIPA, YVETTE, LIVER #### [facility] [address] [place] [address] ABD/PELVIS WO CONon [...] VEDA BOND Date: 2023-01-25 12:20 Normal [facility] ER URINE PROFILEon 3 Bilirubin Ql (U) SMALL Abnormal NEGATIVE [facility] Comment on above: Performed By: #### B MP, LIPA, YVETTE, LIVER #### [facility] [address] [place] [address] [address] Idania Roldan Clarity (U) CLEAR Normal CLEAR [facility] Comment on above: Performed By: #### B MP, LIPA, YVETTE, LIVER #### [facility] [address] [place] [address] [address] Idania Roldan Color (U) DK. YELLOW Normal YELLOW [facility] Comment on above: Performed By: #### B MP, LIPA, YVETTE, LIVER #### [facility] [address] [place] [address] [address] Idania MENDOSA A micrscopic examina tion will be performed if indicated. Normal [facility] Comment on above: Performed By: #### B MP, LIPA, YVETTE, LIVER #### [facility] [address] [place] [address] [address] Idania Roldan Glucose Ql (U) Negative Normal NEGATIVE [facility] Comment on above: Performed By: #### B MP, LIPA, YVETTE, LIVER #### [facility] [address] [place] [address] [address] Idania Roldan Hemoglobin Ql (U) LARGE Abnormal NEGATIVE The [facility] Comment on above: Performed By: #### B MP, LIPA, YVETTE, LIVER #### [facility] [address] [place] [address] Dr. Idanai Roldan Ketones Ql (U) TRACE Abnormal NEGATIVE [facility] Comment on above: Performed By: #### B MP, LIPA, YVETTE, LIVER #### [facility] [address] [place] [address] [address] Idania Roldan LEUKOCYTES Negative Normal NEGATIVE [facility] Comment on above: Performed By: #### B MP, LIPA, YVETTE, LIVER #### [facility] [address] [place] [address] [address] Idania Roldan Nitrite Ql (U) Negative Normal NEGATIVE [facility] Comment on above: Performed By: #### B MP, LIPA, YVETTE, LIVER #### [facility] [address] [place] [address] [address] Idania Roldan pH (U) 5.0 [pH] Normal 5-9 [facility] Comment on above: Performed By: #### B MP, LIPA, YVETTE, LIVER #### [facility] [address] [place] [address] [address] Idania Roldan SPEC GRAVITY >=1.030 Abnormal 1.005-<=1.02 5 [facility] Comment on above: Performed By: #### B MP, LIPA, YVETTE, LIVER #### [facility] [address] [place] [address] Dr. Idania Roldan UA PROTEIN TRACE Normal NEGATIVE/ TRACE [facility] Comment on above: Performed By: #### B MP, LIPA, YVETTE, LIVER #### [facility] [address] [place] [address] Dr. Idania Roldan UR MICRO IND INDICATED Normal [facility] Comment on above: Performed By: #### B MP, LIPA, YVETTE, LIVER #### [facility] [address] [place] [address] Dr. Idania Roldan Urobilinogen Qn (U) 0.2 {Bryan'U}/dL Normal 0.2 - 1.0 [facility] Comment on above: Performed By: #### B MP, LIPA, YVETTE, LIVER #### [facility] [address] [place] [address] Dr. Idania Roldan LIPASEon 01-25-2023 Lipase [Catalytic activity/Vol] 226.0 U/L Normal 73.0-393.0 [facility] Comment on above: Performed By: #### B MP, LIPA, YVETTE, LIVER #### [facility] [address] [place] [address] Dr. Idania Roldan LIVER PROFILEon 01-25-2023 Albumin [Mass/Vol] 4.1 g/dL Normal 3.4-5.0 [facility] Comment on above: Performed By: #### B MP, LIPA, YVETTE, LIVER #### [facility] [address] [place] [address] Dr. Idania Roldan Albumin/Globulin [Mass ratio] 0.9 {ratio} Normal [facility] Comment on above: Performed By: #### B MP, LIPA, YVETTE, LIVER #### [facility] [address] [place] [address] Dr. Idania Roldan ALP [Catalytic activity/Vol] 110 U/L Normal 46-116 [facility] Comment on above: Performed By: #### B MP, LIPA, YVETTE, LIVER #### [facility] [address] [place] [address] Dr. Idania Roldan ALT [Catalytic activity/Vol] 20 U/L Normal 14-59 [facility] Comment on above: Performed By: #### B MP, LIPA, YVETTE, LIVER #### [facility] [address] [place] [address] Dr. Idania Roldan AST [Catalytic activity/Vol] 11 U/L Critically low 15-37 [facility] Comment on above: Performed By: #### B MP, LIPA, YVETTE, LIVER #### [facility] [address] [place] [address] Dr. Idania Roldan BILI, CONJUGATED 0.1 mg/dL Normal 0.0-0.2 [facility] Comment on above: Performed By: #### B MP, LIPA, YVETTE, LIVER #### [facility] [address] [place] [address] Dr. Idania Roldan Bilirubin [Mass/Vol] 0.3 mg/dL Normal 0.2-1.0 [facility] Comment on above: Performed By: #### B MP, LIPA, YVETTE, LIVER #### [facility] [address] [place] [address] Dr. Idania Roldan Globulin (S) [Mass/Vol] 4.4 g/dL Normal [facility] Comment on above: Performed By: #### B MP, LIPA, YVETTE, LIVER #### [facility] [address] [place] [address] Dr. Idania Roldan Protein [Mass/Vol] 8.5 g/dL Critically high 6.4-8.2 [facility] Comment on above: Performed By: #### B MP, LIPA, YVETTE, LIVER #### [facility] [address] [place] [address] Dr. Idania Roldan PROF CHEM 8 (BAS METB)on Anion gap [Moles/Vol] 13.5 mmol/L Normal [facility] Comment on above: Performed By: #### B MP, LIPA, YVETTE, LIVER #### [facility] [address] [place] [address] Dr. Idania Roldan Calcium [Mass/Vol] 9.3 mg/dL Normal 8.5-10.1 [facility] Comment on above: Performed By: #### B MP, LIPA, YVETTE, LIVER #### [facility] [address] [address] [address] Idania Roldan Chloride [Moles/Vol] 105 mmol/L Normal 98-107 [facility] Comment on above: Performed By: #### B MP, LIPA, YVETTE, LIVER #### [facility] [address] [address] [address] Idania Roldan CO2 [Moles/Vol] 27.2 mmol/L Normal 21.0-32.0 [facility] Comment on above: Performed By: #### B MP, LIPA, YVETTE, LIVER #### [facility] [address] [place] [address] Dr. Idania Roldan Creatinine [Mass/Vol] 0.74 mg/dL Normal 0.55-1.02 [facility] Comment on above: Performed By: #### B MP, LIPA, YVETTE, LIVER #### [facility] [address] [place] [address] Dr. Idania Roldan EGFR-AF WELSH >60 Normal >=60 [facility] Comment on above: Performed By: #### B MP, LIPA, YVETTE, LIVER #### [facility] [address] [place] [address] Dr. Idania Roldan EGFR-NON AF WELSH >60 Normal >=60 [facility] Comment on above: Performed By: #### B MP, LIPA, YVETTE, LIVER #### [facility] [address] [place] [address] Dr. Idania Roldan Glucose [Mass/Vol] 97 mg/dL Normal 74-106 [facility] Comment on above: Performed By: #### B MP, LIPA, YVETTE, LIVER #### [facility] [address] [place] [address] Dr. Idania Roldan Potassium [Moles/Vol] 3.7 mmol/L Normal 3.5-5.1 [facility] Comment on above: Performed By: #### B MP, LIPA, YVETTE, LIVER #### [facility] [address] [address] [address] Idania Roldan Sodium [Moles/Vol] 142 mmol/L Normal 136-145 [facility] Comment on above: Performed By: #### B MP, LIPA, YVETTE, LIVER #### [facility] [address] [place] [address] Dr. Idania Roldan Urea nitrogen [Mass/Vol] 13.0 mg/dL Normal 7.0-18.0 [facility] Comment on above: Performed By: #### B MP, LIPA, YVETTE, LIVER #### [facility] [address] [place] [address] Dr. Idania Roldan Urea nitrogen/Creatinin e [Mass ratio] 17.6 mg/mg Normal [facility] Comment on above: Performed By: #### B MP, LIPA, YVETTE, LIVER #### [facility] [address] [place] [address] Dr. Idania Roldan URINE MICROSCOPIC ONLYon BACTERIA NONE SEEN Normal NONE SEEN [facility] Comment on above: Performed By: #### B MP, LIPA, YVETTE, LIVER #### [facility] [address] [place] [address] Dr. Idania Roldan Bacteria identified Cx Nom (U) NOT INDICATED Normal [facility] Comment on above: Performed By: #### B MP, LIPA, YVETTE, LIVER #### [facility] [address] [place] [address] Dr. Idania Roldan CAST NONE SEEN Normal NONE SEEN [facility] Comment on above: Performed By: #### B MP, LIPA, YVETTE, LIVER #### [facility] [address] [place] [address] Dr. Idania Roldan Crystals LM Nom (Urine sed) NONE SEEN Normal NONE SEEN [facility] Comment on above: Performed By: #### B MP, LIPA, YVETTE, LIVER #### [facility] [address] [place] [address] Dr. Idania Roldan Epithelial cells LM Ql (Urine sed) FEW Abnormal NONE SEEN /RARE [facility] Comment on above: Performed By: #### B MP, LIPA, YVETTE, LIVER #### [facility] [address] [address] [address] Idania Roldan MUCOUS NONE SEEN Normal NONE SEEN [facility] Comment on above: Performed By: #### B MP, LIPA, YVETTE, LIVER #### [facility] [address] [address] [address] Idania Roldan RBC (U) [#/Vol] /uL Abnormal 0-2 [facility] Comment on above: Performed By: #### B MP, LIPA, YVETTE, LIVER #### [facility] [address] [place] [address] Dr. Idania Roldan WBC NONE SEEN Normal NONE SEEN [facility] Comment on above: Performed By: #### B MP, LIPA, YVETTE, LIVER #### [facility] [address] [place] [address] Dr. Idania Roldan XR KUB 1 VIEWon [...] DENILSON AUSTIN Date: 2023-01-24 19:51 Normal [facility] AMYLASEon 01-21-2023 Amylase [Catalytic activity/Vol] 64 U/L Normal 25-115 [facility] Comment on above: Performed By: #### P T, PTT #### [facility] [address] [place] [address] Dr. Idania Roldan CBC AUTO DIFFon 01-21-2023 BASO # 0.0 103/ul Normal 0.0-0.1 [facility] Comment on above: Performed By: #### B MP, LIPA, YVETTE, LIVER #### [facility] [address] [place] [address] Dr. Idania Roldan Basophils/100 WBC (Bld) 0.2 % Normal 0.2-2.0 [facility] Comment on above: Performed By: #### B MP, LIPA, YVETTE, LIVER #### [facility] [address] [place] [address] Dr. Idania Roldan EO # 0.1 103/ul Normal 0.0-0.7 [facility] Comment on above: Performed By: #### B MP, LIPA, YVETTE, LIVER #### [facility] [address] [place] [address] Dr. Idania Roldan Eosinophils/100 WBC (Bld) 0.9 % Normal 0.9-7.0 [facility] Comment on above: Performed By: #### B MP, LIPA, YVETTE, LIVER #### [facility] [address] [place] [address] Dr. Idania Roldan Erythrocyte distribution width (RBC) [Ratio] 17.2 % Critically high 11.0-15.0 [facility] Comment on above: Performed By: #### B MP, LIPA, YVETTE, LIVER #### [facility] [address] [place] [address] Dr. Idania Roldan Hematocrit (Bld) [Volume fraction] 32.5 % Critically low 36.0-48.0 [facility] Comment on above: Performed By: #### B MP, LIPA, YVETTE, LIVER #### [facility] [address] [place] [address] Dr. Idania Roldan Hemoglobin (Bld) [Mass/Vol] 9.5 g/dL Critically low 12.0-16.0 [facility] Comment on above: Performed By: #### B MP, LIPA, YVETTE, LIVER #### [facility] [address] [place] [address] Dr. Idania Roldan IG # 0.01 10e3/ul Normal 0.00-0.03 [facility] Comment on above: Performed By: #### B MP, LIPA, YVETTE, LIVER #### [facility] [address] [place] [address] Dr. Idania Roldan IG % 0.2 % Normal 0.0-0.5 [facility] Comment on above: Performed By: #### B MP, LIPA, YVETTE, LIVER #### [facility] [address] [place] [address] Dr. Idania Roldan LYMPH # 2.0 103/ul Normal 1.2-3.8 [facility] Comment on above: Performed By: #### B MP, LIPA, YVETTE, LIVER #### [facility] [address] [place] [address] Dr. Idania Roldan Lymphocytes/100 WBC (Bld) 34.7 % Normal 20.5-60.0 [facility] Comment on above: Performed By: #### B MP, LIPA, YVETTE, LIVER #### [facility] [address] [place] [address] Dr. Idania Roldan MANUAL DIFF REQ NO Normal [facility] Comment on above: Performed By: #### B MP, LIPA, YVETTE, LIVER #### [facility] [address] [place] [address] Dr. Idania Roldan MCH (RBC) [Entitic mass] 20.5 pg Critically low 26.7-34.0 [facility] Comment on above: Performed By: #### B MP, LIPA, YVETTE, LIVER #### [facility] [address] [place] [address] Dr. Idania Roldan MCHC (RBC) [Mass/Vol] 29.2 g/dL Critically low 29.9-35.2 [facility] Comment on above: Performed By: #### B MP, LIPA, YVETTE, LIVER #### [facility] [address] [place] [address] Dr. Idania Roldan MCV (RBC) [Entitic vol] 70.2 fL Critically low 81.0-99.0 [facility] Comment on above: Performed By: #### B MP, LIPA, YVETTE, LIVER #### [facility] [address] [place] [address] Dr. Idania Roldan MONO # 0.5 103/ul Normal 0.3-0.8 [facility] Comment on above: Performed By: #### B MP, LIPA, YVETTE, LIVER #### [facility] [address] [place] [address] Dr. Idania Roldan Monocytes/100 WBC (Bld) 8.7 % Normal 1.7-12.0 [facility] Comment on above: Performed By: #### B MP, LIPA, YVETTE, LIVER #### [facility] [address] [place] [address] Dr. Idania Roldan NEUT # 3.2 103/ul Normal 1.4-6.5 [facility] Comment on above: Performed By: #### B MP, LIPA, YVETTE, LIVER #### [facility] [address] [place] [address] Dr. Idania Roldan Neutrophils/100 WBC (Bld) 55.3 % Normal 43.0-75.0 [facility] Comment on above: Performed By: #### B MP, LIPA, YVETTE, LIVER #### [facility] [address] [place] [address] Dr. Idania Roldan Platelet mean volume (Bld) [Entitic vol] 9.7 fL Normal 9.5-13.5 [facility] Comment on above: Performed By: #### B MP, LIPA, YVETTE, LIVER #### [facility] [address] [place] [address] Dr. Idania Roldan PLT 310 103/ul Normal 150-450 [facility] Comment on above: Performed By: #### B MP, LIPA, YVETTE, LIVER #### [facility] [address] [place] [address] Dr. Idania Roldan RBC 4.63 106/ul Normal 4.20-5.40 [facility] Comment on above: Performed By: #### B MP, LIPA, YVETTE, LIVER #### [facility] [address] [place] [address] Dr. Idania Roldan WBC 5.8 103/ul Normal 4.0-11.0 [facility] Comment on above: Performed By: #### B MP, LIPA, YVETTE, LIVER #### [facility] [address] [place] [address] Dr. Idania Roldan CULTURE URINEon 01-21-2023 CULTURE URINE Culture Observations : MODERATE GROWTH OF MIXED GENITAL ALE. NO POTENTIAL PATHOGENS SEEN. Normal [facility] Comment on above: Performed By: #### P T, PTT #### [facility] [address] [place] [address] Dr. Idania Roldan LIPASEon 01-21-2023 Lipase [Catalytic activity/Vol] 251.0 U/L Normal 73.0-393.0 [facility] Comment on above: Performed By: #### P T, PTT #### [facility] [address] [place] [address] Dr. Idania Roldan PROF 14(COMP METB)on 023 Albumin [Mass/Vol] 3.8 g/dL Normal 3.4-5.0 [facility] Comment on above: Performed By: #### P T, PTT #### [facility] [address] [place] [address] Dr. Idania Roldan Albumin/Globulin [Mass ratio] 1.0 {ratio} Normal [facility] Comment on above: Performed By: #### P T, PTT #### [facility] [address] [place] [address] Dr. Idania Roldan ALP [Catalytic activity/Vol] 107 U/L Normal 46-116 [facility] Comment on above: Performed By: #### P T, PTT #### [facility] [address] [place] [address] Dr. Idania Roldan ALT [Catalytic activity/Vol] 17 U/L Normal 14-59 [facility] Comment on above: Performed By: #### P T, PTT #### [facility] [address] [place] [address] Dr. Idania Roldan Anion gap [Moles/Vol] 13.3 mmol/L Normal [facility] Comment on above: Performed By: #### P T, PTT #### [facility] [address] [place] [address] Dr. Idania Roldan AST [Catalytic activity/Vol] 9 U/L Critically low 15-37 [facility] Comment on above: Performed By: #### P T, PTT #### [facility] [address] [place] [address] Dr. Idania Roldan Bilirubin [Mass/Vol] 0.3 mg/dL Normal 0.2-1.0 [facility] Comment on above: Performed By: #### P T, PTT #### [facility] [address] [place] [address] Dr. Idania Roldan Calcium [Mass/Vol] 9.0 mg/dL Normal 8.5-10.1 [facility] Comment on above: Performed By: #### P T, PTT #### [facility] [address] [place] [address] Dr. Idania Roldan Chloride [Moles/Vol] 103 mmol/L Normal 98-107 [facility] Comment on above: Performed By: #### P T, PTT #### [facility] [address] [place] [address] Dr. Idania Roldan CO2 [Moles/Vol] 28.2 mmol/L Normal 21.0-32.0 [facility] Comment on above: Performed By: #### P T, PTT #### [facility] [address] [place] [address] Dr. Idania Roldan Creatinine [Mass/Vol] 0.81 mg/dL Normal 0.55-1.02 [facility] Comment on above: Performed By: #### P T, PTT #### [facility] [address] [place] [address] Dr. Idania Roldan EGFR-AF WELSH >60 Normal >=60 [facility] Comment on above: Performed By: #### P T, PTT #### [facility] [address] [place] [address] Dr. Idania Roldan EGFR-NON AF WELSH >60 Normal >=60 [facility] Comment on above: Performed By: #### P T, PTT #### [facility] [address] [place] [address] Dr. Idania Roldan Globulin (S) [Mass/Vol] 3.9 g/dL Normal [facility] Comment on above: Performed By: #### P T, PTT #### [facility] [address] [place] [address] Dr. Idania Roldan Glucose [Mass/Vol] 93 mg/dL Normal 74-106 [facility] Comment on above: Performed By: #### P T, PTT #### [facility] [address] [place] [address] Dr. Idania Roldan Potassium [Moles/Vol] 3.5 mmol/L Normal 3.5-5.1 [facility] Comment on above: Performed By: #### P T, PTT #### [facility] [address] [place] [address] Dr. Idania Roldan Protein [Mass/Vol] 7.7 g/dL Normal 6.4-8.2 [facility] Comment on above: Performed By: #### P T, PTT #### [facility] [address] [place] [address] Dr. Idania Roldan Sodium [Moles/Vol] 141 mmol/L Normal 136-145 [facility] Comment on above: Performed By: #### P T, PTT #### [facility] [address] [place] [address] Dr. Idania Roldan Urea nitrogen [Mass/Vol] 11.0 mg/dL Normal 7.0-18.0 [facility] Comment on above: Performed By: #### P T, PTT #### [facility] [address] [place] [address] Dr. Idania Roldan Urea nitrogen/Creatinin e [Mass ratio] 13.6 mg/mg Normal [facility] Comment on above: Performed By: #### P T, PTT #### [facility] [address] [place] [address] Dr. Idania Roldan UA RANDOM W/MICROSCOPICon BACTERIA SMALL Abnormal NONE SEEN [facility] Comment on above: Performed By: #### B MP, LIPA, YVETTE, LIVER #### [facility] [address] [place] [address] Dr. Idania Roldan Bilirubin Ql (U) SMALL Abnormal NEGATIVE [facility] Comment on above: Performed By: #### B MP, LIPA, YVETTE, LIVER #### [facility] [address] [address] [address] Idania Roldan CAST NONE SEEN Normal NONE SEEN [facility] Comment on above: Performed By: #### B MP, LIPA, YVETTE, LIVER #### [facility] [address] [address] [address] Idania Roldan Clarity (U) CLEAR Normal CLEAR [facility] Comment on above: Performed By: #### B MP, LIPA, YVETTE, LIVER #### [facility] [address] [address] [address] Idania Roldan Color (U) DK. YELLOW Normal YELLOW [facility] Comment on above: Performed By: #### B MP, LIPA, YVETTE, LIVER #### [facility] [address] [place] [address] Dr. Idania Roldan Crystals LM Nom (Urine sed) NONE SEEN Normal NONE SEEN [facility] Comment on above: Performed By: #### B MP, LIPA, YVETTE, LIVER #### [facility] [address] [address] [address] Idania Roldan Epithelial cells LM Ql (Urine sed) FEW Abnormal NONE SEEN /RARE [facility] Comment on above: Performed By: #### B MP, LIPA, YVETTE, LIVER #### [facility] [address] [address] [address] Idania Roldan Glucose Ql (U) Negative Normal NEGATIVE [facility] Comment on above: Performed By: #### B MP, LIPA, YVETTE, LIVER #### [facility] [address] [address] [address] Idania Roldan Hemoglobin Ql (U) LARGE Abnormal NEGATIVE [facility] Comment on above: Performed By: #### B MP, LIPA, YVETTE, LIVER #### [facility] [address] [address] [address] Idania Roldan Ketones Ql (U) TRACE Abnormal NEGATIVE [facility] Comment on above: Performed By: #### B MP, LIPA, YVETTE, LIVER #### [facility] [address] [place] [address] Dr. Idania Roldan LEUKOCYTES Negative Normal NEGATIVE [facility] Comment on above: Performed By: #### B MP, LIPA, YVETTE, LIVER #### [facility] [address] [place] [address] Dr. Idania Roldan MUCOUS MODERATE Abnormal NONE SEEN [facility] Comment on above: Performed By: #### B MP, LIPA, YVETTE, LIVER #### [facility] [address] [place] [address] Dr. Idania Roldan Nitrite Ql (U) Negative Normal NEGATIVE [facility] Comment on above: Performed By: #### B MP, LIPA, YVETTE, LIVER #### [facility] [address] [place] [address] Dr. Idania Roldan pH (U) 5.0 [pH] Normal 5-9 [facility] Comment on above: Performed By: #### B MP, LIPA, YVETTE, LIVER #### [facility] [address] [place] [address] Dr. Idania Roldan RBC (U) [#/Vol] /uL Abnormal 0-2 [facility] Comment on above: Performed By: #### B MP, LIPA, YVETTE, LIVER #### [facility] [address] [place] [address] Dr. Idania Roldan SPEC GRAVITY >=1.030 Abnormal 1.005-<=1.02 5 [facility] Comment on above: Performed By: #### B MP, LIPA, YVETTE, LIVER #### [facility] [address] [place] [address] Dr. Idania Roldan UA PROTEIN TRACE Normal NEGATIVE/ TRACE [facility] Comment on above: Performed By: #### B MP, LIPA, YVETTE, LIVER #### [facility] [address] [place] [address] Dr. Idania Roldan Urobilinogen Qn (U) 0.2 {Bryan'U}/dL Normal 0.2 - 1.0 [facility] Comment on above: Performed By: #### B MP, LIPA, YVETTE, LIVER #### [facility] [address] [address] [address] Idania Roldan WBC 0-2 Abnormal NONE SEEN [facility] Comment on above: Performed By: #### B MP, LIPA, YVETTE, LIVER #### [facility] [address] [address] [address] Idania Roldan Covid-19 PCR (CVDTB)on 09-11 SARS-CoV-2 (COVID-19) RNA MAMIE+probe Ql (Unsp spec) Detected Critically abnormal NOT DETECTED [facility] Comment on above: Result Comment: This test is not yet approved or cleared by the [place] FDA. When there are no FDA-approved or cleared tests available, and other criteria are met, FDA can make tests available under an emergency access mechanism called an Emergency Use Authorization (EUA). The EUA for this test is supported by the [place] of Health and Human Service's (HHS's) declaration [...] used). Performed By: #### C VDTBH #### [facility] [address] [place] [address] Dr. Idania Roldan INFLUENZA A AND B [facility]on 10[facility] Normal [facility] Comment on above: Result Comment: Nega tive for Flu A protein angiten. Infection due to Flu A cannot be ruled out. Flu A angiten in the sample may be below the detection limit of the test. Performed By: #### P T, PTT #### [facility] [address] [place] [address] Dr. Idania Roldan INFLUBNEGH SEE BELOW Normal [facility] Comment on above: Result Comment: Nega tive for Flu B protein antigen. Infection due to Flu B cannot be ruled out. Flu B antigen in the sample may be below the detection limit of the test. Performed By: #### P T, PTT #### [facility] [address] [place] [address] Dr. Idania Roldan INFLUENZA A AG Negative Normal NEGATIVE SEE COMMENT [facility] Comment on above: Performed By: #### P T, PTT #### [facility] [address] [place] [address] Dr. Idania Roldan INFLUENZA B AG Negative Normal NEGATIVE SEE COMMENT [facility] Comment on above: Performed By: #### P T, PTT #### [facility] [address] [place] [address] Dr. Idania Roldan INTERNAL CONTROLS Within Normal Limits Normal Wi thin Normal Limits [facility] Comment on above: Performed By: #### P T, PTT #### [facility] [address] [place] [address] Dr. Idania Roldan AMYLASEon 09-30-2022 Amylase [Catalytic activity/Vol] 62 U/L Normal 25-115 [facility] Comment on above: Performed By: #### B MP, LIPA, YVETTE, LIVER #### [facility] [address] [place] [address] Dr. Idania Roldan CBC AUTO DIFFon 09-30-2022 BASO # 0.0 103/ul Normal 0.0-0.1 [facility] Comment on above: Performed By: #### C BC #### [facility] [address] [place] [address] Dr. Idania Roldan Basophils/100 WBC (Bld) 0.3 % Normal 0.2-2.0 [facility] Comment on above: Performed By: #### C BC #### [facility] [address] [place] [address] Dr. Idania Roldan EO # 0.1 103/ul Normal 0.0-0.7 [facility] Comment on above: Performed By: #### C BC #### [facility] [address] [place] [address] Dr. Idania Roldan Eosinophils/100 WBC (Bld) 1.2 % Normal 0.9-7.0 [facility] Comment on above: Performed By: #### C BC #### [facility] [address] [place] [address] Dr. Idania Roldan Erythrocyte distribution width (RBC) [Ratio] 14.8 % Normal 11.0-15.0 [facility] Comment on above: Performed By: #### C BC #### [facility] [address] [place] [address] Dr. Idania Roldan Hematocrit (Bld) [Volume fraction] 31.8 % Critically low 36.0-48.0 [facility] Comment on above: Performed By: #### C BC #### [facility] [address] [place] [address] Dr. Idania Roldan Hemoglobin (Bld) [Mass/Vol] 9.6 g/dL Critically low 12.0-16.0 [facility] Comment on above: Performed By: #### C BC #### [facility] [address] [place] [address] Dr. Idania Roldan IG # 0.01 10e3/ul Normal 0.00-0.03 [facility] Comment on above: Performed By: #### C BC #### [facility] [address] [place] [address] Dr. Idania Roldan IG % 0.1 % Normal 0.0-0.5 [facility] Comment on above: Performed By: #### C BC #### [facility] [address] [place] [address] Dr. Idania Roldan LYMPH # 3.3 103/ul Normal 1.2-3.8 [facility] Comment on above: Performed By: #### C BC #### [facility] [address] [place] [address] Dr. Idania Roldan Lymphocytes/100 WBC (Bld) 45.4 % Normal 20.5-60.0 [facility] Comment on above: Performed By: #### C BC #### [facility] [address] [place] [address] Dr. Idania Roldan MANUAL DIFF REQ NO Normal [facility] Comment on above: Performed By: #### C BC #### [facility] [address] [address] [address] Idania Roldan MCH (RBC) [Entitic mass] 22.7 pg Critically low 26.7-34.0 [facility] Comment on above: Performed By: #### C BC #### [facility] [address] [place] [address] Dr. Idania Roldan MCHC (RBC) [Mass/Vol] 30.2 g/dL Normal 29.9-35.2 [facility] Comment on above: Performed By: #### C BC #### [facility] [address] [place] [address] Dr. Idania Roldan MCV (RBC) [Entitic vol] 75.4 fL Critically low 81.0-99.0 [facility] Comment on above: Performed By: #### C BC #### [facility] Laboratory [address] [place] [address] Dr. Idania Roldan MONO # 0.5 103/ul Normal 0.3-0.8 [facility] Comment on above: Performed By: #### C BC #### [facility] Laboratory [address] [place] [address] Dr. Idania Roldan Monocytes/100 WBC (Bld) 6.2 % Normal 1.7-12.0 [facility] Comment on above: Performed By: #### C BC #### [facility] Laboratory [address] [place] [address] Dr. Idania Roldan NEUT # 3.4 103/ul Normal 1.4-6.5 [facility] Comment on above: Performed By: #### C BC #### [facility] Laboratory [address] [place] [address] Dr. Idania Roldan Neutrophils/100 WBC (Bld) 46.8 % Normal 43.0-75.0 [facility] Comment on above: Performed By: #### C BC #### [facility] Laboratory [address] [place] [address] Dr. Idania Roldan Platelet mean volume (Bld) [Entitic vol] 8.5 fL Critically low 9.5-13.5 [facility] Comment on above: Performed By: #### C BC #### [facility] Laboratory [address] [place] [address] Dr. Idania Roldan PLT 273 103/ul Normal 150-450 [facility] Comment on above: Performed By: #### C BC #### [facility] Laboratory [address] [place] [address] Dr. Idania Roldan RBC 4.22 106/ul Normal 4.20-5.40 [facility] Comment on above: Performed By: #### C BC #### [facility] Laboratory [address] [place] [address] Dr. Idania Roldan WBC 7.2 103/ul Normal 4.0-11.0 [facility] Comment on above: Performed By: #### C BC #### [facility] Laboratory [address] [place] [address] Dr. Idania Roldan CULTURE URINEon 09-30-2022 CULTURE URINE Culture Observations : MODERATE GROWTH OF MIXED GENITAL ALE. NO POTENTIAL PATHOGENS SEEN. Normal [facility] Comment on above: Performed By: #### P T, PTT #### [facility] Laboratory [address] [place] [address] Dr. Idania Roldan LIPASEon 09-30-2022 Lipase [Catalytic activity/Vol] 256.0 U/L Normal 73.0-393.0 [facility] Comment on above: Performed By: #### B MP, LIPA, YVETTE, LIVER #### [facility] Laboratory [address] [place] [address] Dr. Idania Roldan PROF 14(COMP METB)on 022 Albumin [Mass/Vol] 4.1 g/dL Normal 3.4-5.0 [facility] Comment on above: Performed By: #### B MP, LIPA, YVETTE, LIVER #### [facility] Laboratory [address] [place] [address] Dr. Idania Roldan Albumin/Globulin [Mass ratio] 1.0 {ratio} Normal [facility] Comment on above: Performed By: #### B MP, LIPA, YVETTE, LIVER #### [facility] Laboratory [address] [place] [address] Dr. Idania Roldan ALP [Catalytic activity/Vol] 93 U/L Normal 46-116 [facility] Comment on above: Performed By: #### B MP, LIPA, YVETTE, LIVER #### [facility] Laboratory [address] [place] [address] Dr. Idania Roldan ALT [Catalytic activity/Vol] 13 U/L Critically low 14-59 [facility] Comment on above: Performed By: #### B MP, LIPA, YVETTE, LIVER #### [facility] Laboratory [address] [place] [address] Dr. Idania Roldan Anion gap [Moles/Vol] 9.8 mmol/L Normal [facility] Comment on above: Performed By: #### B MP, LIPA, YVETTE, LIVER #### [facility] Laboratory [address] [place] [address] Dr. Idania Roldan AST [Catalytic activity/Vol] 12 U/L Critically low 15-37 [facility] Comment on above: Performed By: #### B MP, LIPA, YVETTE, LIVER #### [facility] Laboratory [address] [place] [address] Dr. Idania Roldan Bilirubin [Mass/Vol] 0.2 mg/dL Normal 0.2-1.0 [facility] Comment on above: Performed By: #### B MP, LIPA, YVETTE, LIVER #### [facility] Laboratory [address] [place] [address] Dr. Idania Roldan Calcium [Mass/Vol] 9.2 mg/dL Normal 8.5-10.1 [facility] Comment on above: Performed By: #### B MP, LIPA, YVETTE, LIVER #### [facility] Laboratory [address] [place] [address] Dr. Idania Roldan Chloride [Moles/Vol] 101 mmol/L Normal 98-107 [facility] Comment on above: Performed By: #### B MP, LIPA, YVETTE, LIVER #### [facility] Laboratory [address] [place] [address] Dr. Idania Roldan CO2 [Moles/Vol] 31.8 mmol/L Normal 21.0-32.0 [facility] Comment on above: Performed By: #### B MP, LIPA, YVETTE, LIVER #### [facility] Laboratory [address] [address] [address] Idania Roldan Creatinine [Mass/Vol] 0.71 mg/dL Normal 0.55-1.02 [facility] Comment on above: Performed By: #### B MP, LIPA, YVETTE, LIVER #### [facility] [address] [address] [address] Idania Roldan EGFR-AF WELSH >60 Normal >=60 [facility] Comment on above: Performed By: #### B MP, LIPA, YVETTE, LIVER #### [facility] Laboratory [address] [place] [address] Dr. Idania Roldan EGFR-NON AF WELSH >60 Normal >=60 [facility] Comment on above: Performed By: #### B MP, LIPA, YVETTE, LIVER #### [facility] Laboratory [address] [place] [address] Dr. Idania Roldan Globulin (S) [Mass/Vol] 4.0 g/dL Normal [facility] Comment on above: Performed By: #### B MP, LIPA, YVETTE, LIVER #### [facility] Laboratory [address] [place] [address] Dr. Idania Roldan Glucose [Mass/Vol] 92 mg/dL Normal 74-106 [facility] Comment on above: Performed By: #### B MP, LIPA, YVETTE, LIVER #### [facility] Laboratory [address] [place] [address] Dr. Idania Roldan Potassium [Moles/Vol] 3.6 mmol/L Normal 3.5-5.1 [facility] Comment on above: Performed By: #### B MP, LIPA, YVETTE, LIVER #### [facility] Laboratory [address] [place] [address] Dr. Idania Roldan Protein [Mass/Vol] 8.1 g/dL Normal 6.4-8.2 [facility] Comment on above: Performed By: #### B MP, LIPA, YVETTE, LIVER #### [facility] [address] [address] [address] Idania Roldan Sodium [Moles/Vol] 139 mmol/L Normal 136-145 [facility] Comment on above: Performed By: #### B MP, LIPA, YVETTE, LIVER #### [facility] [address] [place] [address] Dr. Idania Roldan Urea nitrogen [Mass/Vol] 15.0 mg/dL Normal 7.0-18.0 [facility] Comment on above: Performed By: #### B MP, LIPA, YVETTE, LIVER #### [facility] [address] [place] [address] Dr. Idania Roldan Urea nitrogen/Creatinin e [Mass ratio] 21.1 mg/mg Normal [facility] Comment on above: Performed By: #### B MP, LIPA, YVETTE, LIVER #### [facility] [address] [place] [address] Dr. Idania Roldan UA RANDOM W/MICROSCOPICon BACTERIA SMALL Abnormal NONE SEEN [facility] Comment on above: Performed By: #### B MP, LIPA, YVETTE, LIVER #### [facility] [address] [place] [address] Dr. Idania oRldan Bilirubin Ql (U) Negative Normal NEGATIVE [facility] Comment on above: Performed By: #### B MP, LIPA, YVETTE, LIVER #### [facility] Laboratory [address] [place] [address] Dr. Idania Roldan CAST NONE SEEN Normal NONE SEEN [facility] Comment on above: Performed By: #### B MP, LIPA, YVETTE, LIVER #### [facility] Laboratory [address] [place] [address] Dr. Idania Roldan Clarity (U) CLEAR Normal CLEAR [facility] Comment on above: Performed By: #### B MP, LIPA, YVETTE, LIVER #### [facility] Laboratory [address] [place] [address] Dr. Idania Roldan Color (U) YELLOW Normal YELLOW [facility] Comment on above: Performed By: #### B MP, LIPA, YVETTE, LIVER #### [facility] Laboratory [address] [place] [address] Dr. Idania Roldan Crystals LM Nom (Urine sed) NONE SEEN Normal NONE SEEN [facility] Comment on above: Performed By: #### B MP, LIPA, YVETTE, LIVER #### [facility] [address] [address] [address] Idania Roldan Epithelial cells LM Ql (Urine sed) FEW Abnormal NONE SEEN /RARE [facility] Comment on above: Performed By: #### B MP, LIPA, YVETTE, LIVER #### [facility] [address] [address] [address] Idania Roldan Glucose Ql (U) Negative Normal NEGATIVE [facility] Comment on above: Performed By: #### B MP, LIPA, YVETTE, LIVER #### [facility] [address] [address] [address] Idania Roldan Hemoglobin Ql (U) Negative Normal NEGATIVE [facility] Comment on above: Performed By: #### B MP, LIPA, YVETTE, LIVER #### [facility] [address] [place] [address] Dr. Idania Roldan Ketones Ql (U) Negative Normal NEGATIVE [facility] Comment on above: Performed By: #### B MP, LIPA, YVETTE, LIVER #### [facility] [address] [address] [address] Idania Roldan LEUKOCYTES SMALL Abnormal NEGATIVE [facility] Comment on above: Performed By: #### B MP, LIPA, YVETTE, LIVER #### [facility] [address] [place] [address] Dr. Idania Roldan MUCOUS TRACE Abnormal NONE SEEN [facility] Comment on above: Performed By: #### B MP, LIPA, YVETTE, LIVER #### [facility] [address] [address] [address] Idania Roldan Nitrite Ql (U) Negative Normal NEGATIVE [facility] Comment on above: Performed By: #### B MP, LIPA, YVETTE, LIVER #### [facility] [address] [address] [address] Idania Roldan pH (U) 7.0 [pH] Normal 5-9 [facility] Comment on above: Performed By: #### B MP, LIPA, YVETTE, LIVER #### [facility] [address] [address] [address] Idania Roldan RBC NONE SEEN Abnormal 0-2 [facility] Comment on above: Performed By: #### B MP, LIPA, YVETTE, LIVER #### [facility] [address] [address] [address] Idania Roldan SPEC GRAVITY 1.015 Normal 1.005-<=1.02 5 [facility] Comment on above: Performed By: #### B MP, LIPA, YVETTE, LIVER #### [facility] [address] [address] [address] Idania Roldan UA PROTEIN Negative Normal NEGATIVE/ TRACE [facility] Comment on above: Performed By: #### B MP, LIPA, YVETTE, LIVER #### [facility] [address] [place] [address] Dr. Idania Roldan Urobilinogen Qn (U) 0.2 {Bryan'U}/dL Normal 0.2 - 1.0 [facility] Comment on above: Performed By: #### B MP, LIPA, YVETTE, LIVER #### [facility] [address] [address] [address] Idania Roldan WBC 5-10 Abnormal NONE SEEN [facility] Comment on above: Performed By: #### B MP, LIPA, YVETTE, LIVER #### [facility] Laboratory [address] [place] [address] Dr. Idania Roldan [facility]10 SARS-CoV-2 (COVID-19) RNA MAMIE+probe Ql (Unsp spec) Not detected Normal NOT DETECTED [facility] Comment on above: Result Comment: This test is not yet approved or cleared by the [place] FDA. When there are no FDA-approved or cleared tests available, and other criteria are met, FDA can make tests available under an emergency access mechanism called an Emergency Use Authorization (EUA). The EUA for this test is supported by the [place] of Health and Human Service's (HHS's) declaration [...] SARS-CoV-2. Performed By: #### C VDTBH #### [facility] Laboratory [address] [place] [address] Dr. Idania Roldan INFLUENZA A AND B [facility] 09-21 [facility] SEE BELOW Normal [facility] Comment on above: Result Comment: Nega tive for Flu A protein angiten. Infection due to Flu A cannot be ruled out. Flu A angiten in the sample may be below the detection limit of the test. Performed By: #### B MP, LIPA, YVETTE, LIVER #### [facility] Laboratory [address] [place] [address] Dr. Id[facility] Normal [facility] Comment on above: Result Comment: Nega tive for Flu B protein antigen. Infection due to Flu B cannot be ruled out. Flu B antigen in the sample may be below the detection limit of the test. Performed By: #### B MP, LIPA, YVETTE, LIVER #### [facility] Laboratory [address] [place] [address] Dr. Idania Roldan INFLUENZA A AG Negative Normal NEGATIVE SEE COMMENT [facility] Comment on above: Performed By: #### B MP, LIPA, YVETTE, LIVER #### [facility] Laboratory [address] [place] [address] Dr. Idania Roldan INFLUENZA B AG Negative Normal NEGATIVE SEE COMMENT [facility] Comment on above: Performed By: #### B MP, LIPA, YVETTE, LIVER #### [facility] Laboratory [address] [place] [address] Dr. Idania Roldan INTERNAL CONTROLS Within Normal Limits Normal Wi thin Normal Limits [facility] Comment on above: Performed By: #### B MP, LIPA, YVETTE, LIVER #### [facility] Laboratory [address] [place] [address] Dr. Idania Roldan Covid-19 PCR (CVD[facility])on 08-11 SARS-CoV-2 (COVID-19) RNA MAMIE+probe Ql (Unsp spec) Not detected Normal NOT DETECTED [facility] Comment on above: Result Comment: This test is not yet approved or cleared by the [place] FDA. When there are no FDA-approved or cleared tests available, and other criteria are met, FDA can make tests available under an emergency access mechanism called an Emergency Use Authorization (EUA). The EUA for this test is supported by the [place] of Health and Human Service's (HHS's) declaration [...] #### B MP, LIPChristine, YVETTE, LIVER #### [facility] Laboratory [address] [place] [address] Dr. Idania Roldan CBC AUTO DIFFon 08-21-2022 BASO # 0.0 103/ul Normal 0.0-0.1 [facility] Comment on above: Performed By: #### P T, PTT #### [facility] [address] [place] [address] Dr. Idania Roldan Basophils/100 WBC (Bld) 0.4 % Normal 0.2-2.0 [facility] Comment on above: Performed By: #### P T, PTT #### [facility] [address] [place] [address] Dr. Idania Roldan EO # 0.1 103/ul Normal 0.0-0.7 [facility] Comment on above: Performed By: #### P T, PTT #### [facility] [address] [place] [address] Dr. Idania Roldan Eosinophils/100 WBC (Bld) 1.3 % Normal 0.9-7.0 [facility] Comment on above: Performed By: #### P T, PTT #### [facility] [address] [place] [address] Dr. Idania Roldan Erythrocyte distribution width (RBC) [Ratio] 15.3 % Critically high 11.0-15.0 [facility] Comment on above: Performed By: #### P T, PTT #### [facility] [address] [place] [address] Dr. Idania Roldan Hematocrit (Bld) [Volume fraction] 32.1 % Critically low 36.0-48.0 [facility] Comment on above: Performed By: #### P T, PTT #### [facility] [address] [place] [address] Dr. Idania Roldan Hemoglobin (Bld) [Mass/Vol] 9.9 g/dL Critically low 12.0-16.0 [facility] Comment on above: Performed By: #### P T, PTT #### [facility] [address] [place] [address] Dr. Idania Roldan IG # 0.01 10e3/ul Normal 0.00-0.03 [facility] Comment on above: Performed By: #### P T, PTT #### [facility] [address] [place] [address] Dr. Idania Roldan IG % 0.1 % Normal 0.0-0.5 [facility] Comment on above: Performed By: #### P T, PTT #### [facility] [address] [place] [address] Dr. Idania Roldan LYMPH # 2.7 103/ul Normal 1.2-3.8 [facility] Comment on above: Performed By: #### P T, PTT #### [facility] [address] [place] [address] Dr. Idania Roldan Lymphocytes/100 WBC (Bld) 35.7 % Normal 20.5-60.0 [facility] Comment on above: Performed By: #### P T, PTT #### [facility] [address] [place] [address] Dr. Idania Roldan MANUAL DIFF REQ NO Normal [facility] Comment on above: Performed By: #### P T, PTT #### [facility] [address] [place] [address] Dr. Idania Roldan MCH (RBC) [Entitic mass] 24.8 pg Critically low 26.7-34.0 [facility] Comment on above: Performed By: #### P T, PTT #### [facility] [address] [place] [address] Dr. Idania Roldan MCHC (RBC) [Mass/Vol] 30.8 g/dL Normal 29.9-35.2 [facility] Comment on above: Performed By: #### P T, PTT #### [facility] [address] [place] [address] Dr. Idania Roldan MCV (RBC) [Entitic vol] 80.5 fL Critically low 81.0-99.0 [facility] Comment on above: Performed By: #### P T, PTT #### [facility] [address] [place] [address] Dr. Idania Rodlan MONO # 0.5 103/ul Normal 0.3-0.8 [facility] Comment on above: Performed By: #### P T, PTT #### [facility] [address] [place] [address] Dr. Idania Roldan Monocytes/100 WBC (Bld) 6.1 % Normal 1.7-12.0 [facility] Comment on above: Performed By: #### P T, PTT #### [facility] [address] [place] [address] Dr. Idania Roldan NEUT # 4.2 103/ul Normal 1.4-6.5 [facility] Comment on above: Performed By: #### P T, PTT #### [facility] [address] [place] [address] Dr. Idania Roldan Neutrophils/100 WBC (Bld) 56.4 % Normal 43.0-75.0 [facility] Comment on above: Performed By: #### P T, PTT #### [facility] [address] [place], [place] [address] Dr. Idania Roldan Platelet mean volume (Bld) [Entitic vol] 9.4 fL Critically low 9.5-13.5 [facility] Comment on above: Performed By: #### P T, PTT #### [facility] [address] [address] [address] Idania Roldan PLT 296 103/ul Normal 150-450 [facility] Comment on above: Performed By: #### P T, PTT #### [facility] [address] [place], [place] [address] Dr. Idania Roldan RBC 3.99 106/ul Critically low 4.20-5.40 [facility] Comment on above: Performed By: #### P T, PTT #### [facility] [address] [address] [address] Idania Roldan WBC 7.5 103/ul Normal 4.0-11.0 [facility] Comment on above: Performed By: #### P T, PTT #### [facility] [address] ABD/PELV W CONon [...] RUSSELL DUFF Date: 2022-08-21 12:35 Normal [facility] ER URINE PROFILEon 2 Bilirubin Ql (U) Unable to perform te sting due to color interference. Abnormal NEGATIVE [facility] Comment on above: Performed By: #### B MP, LIPA, YVETTE, LIVER #### [facility] [address] [place] [address] Dr. Idania Roldan Clarity (U) TURBID Abnormal CLEAR [facility] Comment on above: Performed By: #### B MP, LIPA, YVETTE, LIVER #### [facility] [address] [address] [address] Idania Roldan Color (U) RED Abnormal YELLOW [facility] Comment on above: Performed By: #### B MP, LIPA, YVETTE, LIVER #### [facility] [address] [place] [address] Dr. Idania Roldan ERUAHD A micrscopic examina tion will be performed if indicated. Normal [facility] Comment on above: Performed By: #### B MP, LIPA, YVETTE, LIVER #### [facility] [address] [address] [address] Idania Roldan Glucose Ql (U) Unable to perform te sting due to color interference. Abnormal NEGATIVE [facility] Comment on above: Performed By: #### B MP, LIPA, YVETTE, LIVER #### [facility] [address] [place] [address] Dr. Idania Roldan Hemoglobin Ql (U) Unable to perform te sting due to color interference. Abnormal NEGATIVE [facility] Comment on above: Performed By: #### B MP, LIPA, YVETTE, LIVER #### [facility] [address] [place] [address] Dr. Idania Roldan Ketones Ql (U) Unable to perform te sting due to color interference. Abnormal NEGATIVE [facility] Comment on above: Performed By: #### B MP, LIPA, YVETTE, LIVER #### [facility] [address] [place] [address] Dr. Idania Roldan LEUKOCYTES Unable to perform te sting due to color interference. Abnormal NEGATIVE [facility] Comment on above: Performed By: #### B MP, LIPA, YVETTE, LIVER #### [facility] [address] [place] [address] Dr. Idania Roldan Nitrite Ql (U) Unable to perform te sting due to color interference. Abnormal NEGATIVE [facility] Comment on above: Performed By: #### B MP, LIPA, YVETTE, LIVER #### [facility] [address] [place] [address] Dr. Idania Roldan pH Unable to perform te sting due to color interference. Abnormal 5-9 [facility] Comment on above: Performed By: #### B MP, LIPA, YVETTE, LIVER #### [facility] [address] [place] [address] Dr. Idania Roldan SPEC GRAVITY 1.020 Normal 1.005-<=1.02 5 [facility] Comment on above: Performed By: #### B MP, LIPA, YVETTE, LIVER #### [facility] [address] [place] [address] Dr. Idania Roldan UA PROTEIN Unable to perform te sting due to color interference. Normal NEGATIVE/ TRACE [facility] Comment on above: Performed By: #### B MP, LIPA, YVETTE, LIVER #### [facility] [address] [place] [address] Dr. Idania Roldan UR MICRO IND INDICATED Normal [facility] Comment on above: Performed By: #### B MP, LIPA, YVETTE, LIVER #### [facility] [address] [place] [address] Dr. Idania Roldan UROBILINOGEN Unable to perform te sting due to color interference. Normal 0.2 - 1.0 [facility] Comment on above: Performed By: #### B MP, LIPA, YVETTE, LIVER #### [facility] [address] [address] [address] Idania Roldan PROF 14(COMP METB)on 022 Albumin [Mass/Vol] 4.2 g/dL Normal 3.4-5.0 [facility] Comment on above: Performed By: #### P T, PTT #### [facility] [address] [address] [address] Idania Roldan Albumin/Globulin [Mass ratio] 1.0 {ratio} Normal [facility] Comment on above: Performed By: #### P T, PTT #### [facility] [address] [place] [address] Dr. Idania Roldan ALP [Catalytic activity/Vol] 91 U/L Normal 46-116 [facility] Comment on above: Performed By: #### P T, PTT #### [facility] [address] [place] [address] Dr. Idania Roldan ALT [Catalytic activity/Vol] 15 U/L Normal 14-59 [facility] Comment on above: Performed By: #### P T, PTT #### [facility] [address] [address] [address] Idania Roldan Anion gap [Moles/Vol] 9.6 mmol/L Normal [facility] Comment on above: Performed By: #### P T, PTT #### [facility] [address] [address] [address] Idania Roldan AST [Catalytic activity/Vol] 14 U/L Critically low 15-37 [facility] Comment on above: Performed By: #### P T, PTT #### [facility] [address] [address] [address] Idania Roldan Bilirubin [Mass/Vol] 0.2 mg/dL Normal 0.2-1.0 [facility] Comment on above: Performed By: #### P T, PTT #### [facility] [address] [place] [address] Dr. Idania Roldan Calcium [Mass/Vol] 9.2 mg/dL Normal 8.5-10.1 [facility] Comment on above: Performed By: #### P T, PTT #### [facility] [address] [address] [address] Idania Roldan Chloride [Moles/Vol] 103 mmol/L Normal 98-107 [facility] Comment on above: Performed By: #### P T, PTT #### [facility] [address] [address] [address] Idania Roldan CO2 [Moles/Vol] 31.2 mmol/L Normal 21.0-32.0 [facility] Comment on above: Performed By: #### P T, PTT #### [facility] [address] [address] [address] Idania Roldan Creatinine [Mass/Vol] 0.76 mg/dL Normal 0.55-1.02 [facility] Comment on above: Performed By: #### P T, PTT #### [facility] [address] [place] [address] Dr. Idania Roldan EGFR-AF WELSH >60 Normal >=60 [facility] Comment on above: Performed By: #### P T, PTT #### [facility] [address] [address] [address] Idania Roldan EGFR-NON AF WELSH >60 Normal >=60 [facility] Comment on above: Performed By: #### P T, PTT #### [facility] [address] [place] [address] Dr. Idania Roldan Globulin (S) [Mass/Vol] 4.2 g/dL Normal [facility] Comment on above: Performed By: #### P T, PTT #### [facility] [address] [address] [address] Idania Roldan Glucose [Mass/Vol] 107 mg/dL Critically high 74-106 [facility] Comment on above: Performed By: #### P T, PTT #### [facility] [address] [address] [address] Idania Roldan Potassium [Moles/Vol] 3.8 mmol/L Normal 3.5-5.1 [facility] Comment on above: Performed By: #### P T, PTT #### [facility] [address] [place] [address] Dr. Idania Roldan Protein [Mass/Vol] 8.4 g/dL Critically high 6.4-8.2 [facility] Comment on above: Performed By: #### P T, PTT #### [facility] [address] [place] [address] Dr. Idania Roldan Sodium [Moles/Vol] 140 mmol/L Normal 136-145 [facility] Comment on above: Performed By: #### P T, PTT #### [facility] [address] [place] [address] Dr. Idania Roldan Urea nitrogen [Mass/Vol] 12.0 mg/dL Normal 7.0-18.0 [facility] Comment on above: Performed By: #### P T, PTT #### [facility] [address] [place] [address] Dr. Idania Roldan Urea nitrogen/Creatinin e [Mass ratio] 15.8 mg/mg Normal [facility] Comment on above: Performed By: #### P T, PTT #### [facility] [address] [place] [address] Dr. Idania Roldan URINE MICROSCOPIC ONLYon BACTERIA NONE SEEN Normal NONE SEEN [facility] Comment on above: Performed By: #### B MP, LIPA, YVETTE, LIVER #### [facility] [address] [place] [address] Dr. Idania Roldan Bacteria identified Cx Nom (U) NOT INDICATED Normal [facility] Comment on above: Performed By: #### B MP, LIPA, YVETTE, LIVER #### [facility] [address] [place] [address] Dr. Idania Roldan CAST NONE SEEN Normal NONE SEEN [facility] Comment on above: Performed By: #### B MP, LIPA, YVETTE, LIVER #### [facility] [address] [place] [address] Dr. Idania Roldan Crystals LM Nom (Urine sed) NONE SEEN Normal NONE SEEN [facility] Comment on above: Performed By: #### B MP, LIPA, YVETTE, LIVER #### [facility] [address] [place] [address] Dr. Idania Roldan Epithelial cells LM Ql (Urine sed) RARE Normal NONE SEEN /RARE [facility] Comment on above: Performed By: #### B MP, LIPA, YVETTE, LIVER #### [facility] [address] [place] [address] Dr. Idania Roldan MUCOUS NONE SEEN Normal NONE SEEN [facility] Comment on above: Performed By: #### B MP, LIPA, YVETTE, LIVER #### [facility] [address] [place] [address] Dr. Idania Roldan RBC (U) [#/Vol] /uL Abnormal 0-2 [facility] Comment on above: Performed By: #### B MP, LIPA, YVETTE, LIVER #### [facility] [address] [place] [address] Dr. Idania Roldan WBC 2-5 Abnormal NONE SEEN [facility] Comment on above: Performed By: #### B MP, LIPA, YVETTE, LIVER #### [facility] [address] [place] [address] Dr. Idania Roldan CBC AUTO DIFFon 08-19-2022 BASO # 0.0 103/ul Normal 0.0-0.1 [facility] Comment on above: Performed By: #### P T, PTT #### [facility] [address] [place] [address] Dr. Idania Roldan Basophils/100 WBC (Bld) 0.4 % Normal 0.2-2.0 [facility] Comment on above: Performed By: #### P T, PTT #### [facility] [address] [place] [address] Dr. Idania Roldan EO # 0.1 103/ul Normal 0.0-0.7 [facility] Comment on above: Performed By: #### P T, PTT #### [facility] [address] [place] [address] Dr. Idania Roldan Eosinophils/100 WBC (Bld) 2.0 % Normal 0.9-7.0 [facility] Comment on above: Performed By: #### P T, PTT #### [facility] [address] [place] [address] Dr. Idania Roldan Erythrocyte distribution width (RBC) [Ratio] 14.8 % Normal 11.0-15.0 [facility] Comment on above: Performed By: #### P T, PTT #### [facility] [address] [place] [address] Dr. Idania Roldan Hematocrit (Bld) [Volume fraction] 31.5 % Critically low 36.0-48.0 [facility] Comment on above: Performed By: #### P T, PTT #### [facility] [address] [place] [address] Dr. Idania Roldan Hemoglobin (Bld) [Mass/Vol] 9.5 g/dL Critically low 12.0-16.0 [facility] Comment on above: Performed By: #### P T, PTT #### [facility] [address] [place] [address] Dr. Idania Roldan IG # 0.01 10e3/ul Normal 0.00-0.03 [facility] Comment on above: Performed By: #### P T, PTT #### [facility] [address] [place] [address] Dr. Idania Roldan IG % 0.2 % Normal 0.0-0.5 [facility] Comment on above: Performed By: #### P T, PTT #### [facility] [address] [place] [address] Dr. Idania Roldan LYMPH # 1.4 103/ul Normal 1.2-3.8 [facility] Comment on above: Performed By: #### P T, PTT #### [facility] [address] [place] [address] Dr. Idania Roldan Lymphocytes/100 WBC (Bld) 29.9 % Normal 20.5-60.0 [facility] Comment on above: Performed By: #### P T, PTT #### [facility] [address] [place] [address] Dr. Idania Roldan MANUAL DIFF REQ NO Normal [facility] Comment on above: Performed By: #### P T, PTT #### [facility] [address] [place] [address] Dr. Idania Roldan MCH (RBC) [Entitic mass] 24.4 pg Critically low 26.7-34.0 [facility] Comment on above: Performed By: #### P T, PTT #### [facility] [address] [place] [address] Dr. Idania Roldan MCHC (RBC) [Mass/Vol] 30.2 g/dL Normal 29.9-35.2 [facility] Comment on above: Performed By: #### P T, PTT #### [facility] [address] [place] [address] Dr. Idania Roldan MCV (RBC) [Entitic vol] 80.8 fL Critically low 81.0-99.0 [facility] Comment on above: Performed By: #### P T, PTT #### [facility] [address] [place] [address] Dr. Idania Roldan MONO # 0.2 103/ul Critically low 0.3-0.8 [facility] Comment on above: Performed By: #### P T, PTT #### [facility] [address] [place] [address] Dr. Idania Roldan Monocytes/100 WBC (Bld) 5.2 % Normal 1.7-12.0 [facility] Comment on above: Performed By: #### P T, PTT #### [facility] [address] [place] [address] Dr. Idania Roldan NEUT # 2.9 103/ul Normal 1.4-6.5 [facility] Comment on above: Performed By: #### P T, PTT #### [facility] [address] [place] [address] Dr. Idania Roldan Neutrophils/100 WBC (Bld) 62.3 % Normal 43.0-75.0 [facility] Comment on above: Performed By: #### P T, PTT #### [facility] [address] [place] [address] Dr. Idania Roldan Platelet mean volume (Bld) [Entitic vol] 8.6 fL Critically low 9.5-13.5 [facility] Comment on above: Performed By: #### P T, PTT #### [facility] [address] [place] [address] Dr. Idania Roldan PLT 269 103/ul Normal 150-450 [facility] Comment on above: Performed By: #### P T, PTT #### [facility] [address] [place] [address] Dr. Idania Roldan RBC 3.90 106/ul Critically low 4.20-5.40 [facility] Comment on above: Performed By: #### P T, PTT #### [facility] [address] [place] [address] Dr. Idania Roldan WBC 4.6 103/ul Normal 4.0-11.0 [facility] Comment on above: Performed By: #### P T, PTT #### [facility] [address] [place] [address] Dr. Idania Roldan PROF CHEM 8 (BAS METB)on Anion gap [Moles/Vol] 9.0 mmol/L Normal [facility] Comment on above: Performed By: #### B MP, LIPA, YVETTE, LIVER #### [facility] [address] [place] [address] Dr. Idania Roldan Calcium [Mass/Vol] 9.1 mg/dL Normal 8.5-10.1 [facility] Comment on above: Performed By: #### B MP, LIPA, YVETTE, LIVER #### [facility] [address] [place] [address] Dr. Idania Roldan Chloride [Moles/Vol] 104 mmol/L Normal 98-107 [facility] Comment on above: Performed By: #### B MP, LIPA, YVETTE, LIVER #### [facility] [address] [place] [address] Dr. Idania Roldan CO2 [Moles/Vol] 31.5 mmol/L Normal 21.0-32.0 [facility] Comment on above: Performed By: #### B MP, LIPA, YVETTE, LIVER #### [facility] [address] [address] [address] Idania Roldan Creatinine [Mass/Vol] 0.59 mg/dL Normal 0.55-1.02 [facility] Comment on above: Performed By: #### B MP, LIPA, YVETTE, LIVER #### [facility] [address] [address] [address] Idania Roldan EGFR-AF WELSH >60 Normal >=60 [facility] Comment on above: Performed By: #### B MP, LIPA, YVETTE, LIVER #### [facility] [address] [address] [address] Idania Roldan EGFR-NON AF WELSH >60 Normal >=60 [facility] Comment on above: Performed By: #### B MP, LIPA, YVETTE, LIVER #### [facility] [address] [place] [address] Dr. Idania Roldan Glucose [Mass/Vol] 90 mg/dL Normal 74-106 [facility] Comment on above: Performed By: #### B MP, LIPA, YVETTE, LIVER #### [facility] [address] [address] [address] Idania Roldan Potassium [Moles/Vol] 4.5 mmol/L Normal 3.5-5.1 [facility] Comment on above: Performed By: #### B MP, LIPA, YVETTE, LIVER #### [facility] [address] [address] [address] Idania Roldan Sodium [Moles/Vol] 140 mmol/L Normal 136-145 [facility] Comment on above: Performed By: #### B MP, LIPA, YVETTE, LIVER #### [facility] [address] [address] [address] Idania Roldan Urea nitrogen [Mass/Vol] 8.0 mg/dL Normal 7.0-18.0 [facility] Comment on above: Performed By: #### B MP, LIPA, YVETTE, LIVER #### [facility] [address] [address] [address] Idania Roldan Urea nitrogen/Creatinin e [Mass ratio] 13.6 mg/mg Normal [facility] Comment on above: Performed By: #### B MP, LIPA, YVETTE, LIVER #### [facility] [address] [place] [address] Dr. Idanai Roldan PROTIMEon 08-19-2022 INR Coag (PPP) [Relative time] 0.93 {INR} Normal [facility] Comment on above: Performed By: #### B MP, LIPA, YVETTE, LIVER #### [facility] [address] [place] [address] Dr. Idania Roldan INR GUIDELINES SEE BELOW Normal [facility] Comment on above: Result Comment: TARUN RED INR: 2.0 - 3.0 CONDITIONS NOT LISTED BELOW 2.5 - 3.5 FOR PROSTHETIC HEART VALVE REPLACEMENT 2.5 - 3.5 RECURRENT THROMBOSIS Performed By: #### B MP, LIPA, YVETTE, LIVER #### [facility] [address] [place] [address] Dr. Idania Roldan PT Coag (PPP) [Time] 10.1 s Normal 9.0-11.6 [facility] Comment on above: Performed By: #### B MP, LIPA, YVETTE, LIVER #### [facility] [address] [place] [address] Dr. Idania Roldan PTTon 08-19-2022 aPTT Coag (Bld) [Time] 28.1 s Normal 22.3-36.2 [facility] Comment on above: Performed By: #### B MP, LIPA, YVETTE, LIVER #### [facility] [address] [place] [address] Dr. Idania Roldan Covid-19 PCR (CVDTB)on 07-11 SARS-CoV-2 (COVID-19) RNA MAMIE+probe Ql (Unsp spec) Not detected Normal NOT DETECTED [facility] Comment on above: Result Comment: This test is not yet approved or cleared by the [place] FDA. When there are no FDA-approved or cleared tests available, and other criteria are met, FDA can make tests available under an emergency access mechanism called an Emergency Use Authorization (EUA). The EUA for this test is supported by the [place] of Health and Human Service's (HHS's) declaration [...] Performed By: #### P T, PTT #### [facility] [address] [place] [address] Dr. Idania Roldan CBC AUTO DIFFon 07-10-2022 BASO # 0.0 103/ul Normal 0.0-0.1 [facility] Comment on above: Performed By: #### P T, PTT #### [facility] [address] [place] [address] Dr. Idania Roldan Basophils/100 WBC (Bld) 0.2 % Normal 0.2-2.0 [facility] Comment on above: Performed By: #### P T, PTT #### [facility] [address] [place] [address] Dr. Idania Roldan EO # 0.1 103/ul Normal 0.0-0.7 [facility] Comment on above: Performed By: #### P T, PTT #### [facility] [address] [place] [address] Dr. Idania Roldan Eosinophils/100 WBC (Bld) 1.3 % Normal 0.9-7.0 [facility] Comment on above: Performed By: #### P T, PTT #### [facility] [address] [place] [address] Dr. Idania Roldan Erythrocyte distribution width (RBC) [Ratio] 16.4 % Critically high 11.0-15.0 [facility] Comment on above: Performed By: #### P T, PTT #### [facility] [address] [place] [address] Dr. Idania Roldan Hematocrit (Bld) [Volume fraction] 33.2 % Critically low 36.0-48.0 [facility] Comment on above: Performed By: #### P T, PTT #### [facility] [address] [place] [address] Dr. Idania Roldan Hemoglobin (Bld) [Mass/Vol] 10.3 g/dL Critically low 12.0-16.0 [facility] Comment on above: Performed By: #### P T, PTT #### [facility] [address] [place] [address] Dr. Idania Roldan IG # 0.01 10e3/ul Normal 0.00-0.03 [facility] Comment on above: Performed By: #### P T, PTT #### [facility] [address] [place] [address] Dr. Idania Roldan IG % 0.2 % Normal 0.0-0.5 [facility] Comment on above: Performed By: #### P T, PTT #### [facility] [address] [place] [address] Dr. Idania Roldan LYMPH # 1.8 103/ul Normal 1.2-3.8 [facility] Comment on above: Performed By: #### P T, PTT #### [facility] [address] [place] [address] Dr. Idania Roldan Lymphocytes/100 WBC (Bld) 38.8 % Normal 20.5-60.0 [facility] Comment on above: Performed By: #### P T, PTT #### [facility] [address] [place] [address] Dr. Idania Roldan MANUAL DIFF REQ NO Normal [facility] Comment on above: Performed By: #### P T, PTT #### [facility] [address] [place] [address] Dr. Idania Roldan MCH (RBC) [Entitic mass] 25.9 pg Critically low 26.7-34.0 [facility] Comment on above: Performed By: #### P T, PTT #### [facility] [address] [place] [address] Dr. Idania Roldan MCHC (RBC) [Mass/Vol] 31.0 g/dL Normal 29.9-35.2 [facility] Comment on above: Performed By: #### P T, PTT #### [facility] [address] [address] [address] Idania Roldan MCV (RBC) [Entitic vol] 83.4 fL Normal 81.0-99.0 [facility] Comment on above: Performed By: #### P T, PTT #### [facility] [address] [address] [address] Idania Roldan MONO # 0.3 103/ul Normal 0.3-0.8 [facility] Comment on above: Performed By: #### P T, PTT #### [facility] [address] [address] [address] Idania Roldan Monocytes/100 WBC (Bld) 6.1 % Normal 1.7-12.0 [facility] Comment on above: Performed By: #### P T, PTT #### [facility] [address] [address] [address] Idania Roldan NEUT # 2.5 103/ul Normal 1.4-6.5 [facility] Comment on above: Performed By: #### P T, PTT #### [facility] [address] [address] [address] Idania Roldan Neutrophils/100 WBC (Bld) 53.4 % Normal 43.0-75.0 [facility] Comment on above: Performed By: #### P T, PTT #### [facility] [address] [address] [address] Idania Roldan Platelet mean volume (Bld) [Entitic vol] 10.1 fL Normal 9.5-13.5 [facility] Comment on above: Performed By: #### P T, PTT #### [facility] [address] [address] [address] Idania Roldan PLT 239 103/ul Normal 150-450 [facility] Comment on above: Performed By: #### P T, PTT #### [facility] [address] [address] [address] Idania Roldan RBC 3.98 106/ul Critically low 4.20-5.40 [facility] Comment on above: Performed By: #### P T, PTT #### [facility] [address] [address] [address] Idania Roldan WBC 4.6 103/ul Normal 4.0-11.0 [facility] Comment on above: Performed By: #### P T, PTT #### [facility] [address] [address] [address] Idania Roldan PROF CHEM 8 (BAS METB)on Anion gap [Moles/Vol] 8.4 mmol/L Normal [facility] Comment on above: Performed By: #### B MP #### [facility] [address] [place] [address] Dr. Idania Roldan Calcium [Mass/Vol] 9.3 mg/dL Normal 8.5-10.1 [facility] Comment on above: Performed By: #### B MP #### [facility] [address] [place] [address] Dr. Idania Roldan Chloride [Moles/Vol] 103 mmol/L Normal 98-107 [facility] Comment on above: Performed By: #### B MP #### [facility] [address] [place] [address] Dr. Idania Roldan CO2 [Moles/Vol] 32.9 mmol/L Critically high 21.0-32.0 [facility] Comment on above: Performed By: #### B MP #### [facility] [address] [place] [address] Dr. Idania Roldan Creatinine [Mass/Vol] 0.70 mg/dL Normal 0.55-1.02 [facility] Comment on above: Performed By: #### B MP #### [facility] [address] [place] [address] Dr. Idania Roldan EGFR-AF WELSH >60 Normal >=60 [facility] Comment on above: Performed By: #### B MP #### [facility] [address] [address] [address] Idania Roldan EGFR-NON AF WELSH >60 Normal >=60 [facility] Comment on above: Performed By: #### B MP #### [facility] [address] [address] [address] Idania Roldan Glucose [Mass/Vol] 73 mg/dL Critically low 74-106 [facility] Comment on above: Performed By: #### B MP #### [facility] [address] [address] [address] Idania Roldan Potassium [Moles/Vol] 4.3 mmol/L Normal 3.5-5.1 [facility] Comment on above: Performed By: #### B MP #### [facility] [address] [address] [address] Idania Roldan Sodium [Moles/Vol] 140 mmol/L Normal 136-145 [facility] Comment on above: Performed By: #### B MP #### [facility] [address] [address] [address] Idania Roldan Urea nitrogen [Mass/Vol] 16.0 mg/dL Normal 7.0-18.0 [facility] Comment on above: Performed By: #### B MP #### [facility] [address] [address] [address] Idania Roldan Urea nitrogen/Creatinin e [Mass ratio] 22.9 mg/mg Normal [facility] Comment on above: Performed By: #### B MP #### [facility] [address] [address] [address] Idania Roldan PROTIMEon 07-10-2022 INR Coag (PPP) [Relative time] 1.00 {INR} Normal [facility] Comment on above: Performed By: #### P T, PTT #### [facility] [address] [address] [address] Idania Roldan INR GUIDELINES SEE BELOW Normal [facility] Comment on above: Result Comment: TARUN RED INR: 2.0 - 3.0 CONDITIONS NOT LISTED BELOW 2.5 - 3.5 FOR PROSTHETIC HEART VALVE REPLACEMENT 2.5 - 3.5 RECURRENT THROMBOSIS Performed By: #### P T, PTT #### [facility] [address] [place], [place] [address] Dr. Idania Roldan PT Coag (PPP) [Time] 10.8 s Normal 9.0-11.6 [facility] Comment on above: Performed By: #### P T, PTT #### [facility] [address] [place], [place] [address] Dr. Idania Roldan PTTon 07-10-2022 aPTT Coag (Bld) [Time] 29.3 s Normal 22.3-36.2 [facility] Comment on above: Performed By: #### P T, PTT #### [facility] [address] [place], [place] [address] Dr. Idania Roldan Operative Reporton Operative Report MR#: [id number] I [facility] Pt. Name: Elvi Moore Room #: [id number] Discharge 06/01/2022 Date: Birthdate: 1980 OPERATIVE REPORT DATE OF SURGERY: 06/01/2022 SURGEON: Kevin Lane M.D. METER/RELAY TECHNICIAN: Duy Cavazos ANESTHESIA: General anesthesia. ESTIMATED BLOOD [...] arthrotomy was closed with soft #2 interrupted [id number] suture. The remainder of the incision closed in layered fashion. Sterile dressing applied. At the conclusion of the case, all sponge and needle counts correct. I was present for the critical portions of this case. Electronically Signed by: Kevin Lane M.D. 06/09/2022 07:[address] M.D. Date Dict: 06/03/2022/07:15 A/Kevin Lane M.D. Date Trans: 06/03/2022 08:09 A/mmo [id number] cc: Arleth Acharya M.D. [address], [facility] [id number] Normal [facility] *ANAEROBIC CULTUREon 022 *ANAEROBIC CULTURE Clinical Report: (D) Specimen/Source: FLUID/INTRAOP SPEC Collected: 06/01/2022 14:08 Status: Final Last Updated: 06/06/2022 06:35 (1) 1. LEFT KNEE JOINT FLUID CULT RES (Final) No Anaerobes Isolated 5 Days Normal [facility] Comment on above: Order Comment: 1. LE FT KNEE JOINT FLUID Performed By: #### 3 0312 ####[facility] *ANAEROBIC CULTURE Clinical Report: (D) Specimen/Source: TISSUE/INTRAOP SPEC Collected: 06/01/2022 14:08 Status: Final Last Updated: 06/06/2022 06:35 (1) 2. LEFT KNEE MEDIAL SYNOVIUM CULT RES (Final) No Anaerobes Isolated 5 Days Normal [facility] Comment on above: Order Comment: 2. LE FT KNEE MEDIAL SYNOVIUM Performed By: #### 6 1405 #### [facility] [address] *ANAEROBIC CULTURE Clinical Report: (D) Specimen/Source: TISSUE/INTRAOP SPEC Collected: 06/01/2022 14:08 Status: Final Last Updated: 06/06/2022 06:35 (1) 3. LEFT KNEE LATERAL SYNOVIUM CULT RES (Final) No Anaerobes Isolated 5 Days Normal [facility] Comment on above: Order Comment: 3. LE FT KNEE LATERAL SYNOVIUM Performed By: #### 6 1405 #### [facility] [address] *BODY FLUID CULTUREon 2021 *BODY FLUID CULTURE Clinical Report: (D) Specimen/Source: FLUID/INTRAOP SPEC Collected: 06/01/2022 14:08 Status: Final Last Updated: 06/06/2022 06:39 (1) 1. LEFT KNEE JOINT FLUID GRAM (Final) Quantity Not Sufficient CULT RES (Final) No Growth Day 5 Normal [facility] Comment on above: Order Comment: 1. LE FT KNEE JOINT FLUID Performed By: #### 3 0318 ####[facility] *TISSUE CULTUREon 06-01-2022 *TISSUE CULTURE Clinical Report: (D) Specimen/Source: TISSUE/INTRAOP SPEC Collected: 06/01/2022 14:08 Status: Final Last Updated: 06/06/2022 06:40 (1) 2. LEFT KNEE MEDIAL SYNOVIUM GRAM (Final) Many Polys No Bacteria Seen CULT RES (Final) No Growth Day 5 Normal [facility] Comment on above: Order Comment: 2. LE FT KNEE MEDIAL SYNOVIUM Performed By: #### 3 0338 ####[facility] *TISSUE CULTURE Clinical Report: (D) Specimen/Source: TISSUE/INTRAOP SPEC Collected: 06/01/2022 14:08 Status: Final Last Updated: 06/06/2022 06:39 (1) 3. LEFT KNEE LATERAL SYNOVIUM GRAM (Final) Many Polys No Bacteria Seen CULT RES (Final) No Growth Day 5 Normal [facility] Comment on above: Order Comment: 3. LE FT KNEE LATERAL SYNOVIUM Performed By: #### 3 0338 ####[facility] [facility], [place] [id number] [place] [address] POC GLUCOSE LABon 06-01-2022 Glucose [Mass/Vol] 86 mg/dL Normal 70-100 [facility] Comment on above: Performed By: #### 8 5499 #### [address] [place] [address], [facility] PORTABLE KNEE LEFT 2 VWSon 0 06-01-2022 PORTABLE KNEE LEFT 2 VWS [facility] Department of Radiology [address] [place] [id number] Patient Name: ELVI MOORE : 1980 [...] planned Electronically signed: Yvette Andrade. Transcribed by: [email or web address], User Resident: Electronically Signed by: YVETTE ANDRADE @ 06/02/2022 08:53 AM Normal [facility] Comment on above: Order Comment: Hardw are Evaluation, in PACU *MRSA/MSSA DNA NASALon 05-26 *MRSA/MSSA DNA NASAL Clinical Report: (D) Specimen: NASAL SWAB Collected: 05/26/2022 15:23 Status: Final Last Updated: 05/27/2022 13:43 MSSA DNA (Final) Negative MRSA DNA (Final) Negative Normal [facility] Comment on above: Performed By: #### 3 1595 #### [facility] [address] C REACTIVE PROTEINon 022 CRP [Mass/Vol] 1.3 mg/L Normal 0.0-7.0 [facility] Comment on above: Performed By: #### 6 1405 #### [facility] [address] CBC W/DIFFon 05-26-2022 ABS IMM GRANS 0.0 10*3/uL Normal 0.0-0.2 [facility] Comment on above: Performed By: #### 6 1405 #### [facility] [address] [place] [address], [facility] ABS NEUTROPHILS 2.5 10*3/uL Normal 1.6-7.6 [facility] Comment on above: Performed By: #### 6 1405 #### [facility] [address] [place] [address], [facility] Basophils (Bld) [#/Vol] 0.0 10*3/uL Normal 0.0-0.2 [facility] Comment on above: Performed By: #### 6 1405 #### [facility] [address] Basophils/100 WBC (Bld) 0.3 % Normal 0.0-1.0 [facility] Comment on above: Performed By: #### 6 1405 #### [facility] [address] Eosinophils (Bld) [#/Vol] 0.1 10*3/uL Normal 0.0-0.5 [facility] Comment on above: Performed By: #### 6 1405 #### [facility] [address] [place] [address], [facility] Eosinophils/100 WBC (Bld) 1.5 % Normal 0.0-6.0 [facility] Comment on above: Performed By: #### 6 1405 #### [facility] [address] Erythrocyte distribution width (RBC) [Ratio] 15.9 % High 11.5-15.0 [facility] Comment on above: Performed By: #### 6 1405 #### [facility] [address] Hematocrit (Bld) [Volume fraction] 35.0 % Low 36.0-45.0 [facility] Comment on above: Performed By: #### 6 1405 #### [facility] [address] Hemoglobin (Bld) [Mass/Vol] 10.6 g/dL Low 12.0-15.0 [facility] Comment on above: Performed By: #### 6 1405 #### [facility] [address] [place] [address], [facility] IMMATURE GRANS 0.2 % Normal 0.0-1.0 [facility] Comment on above: Performed By: #### 6 1405 #### [facility] [address] Lymphocytes (Bld) [#/Vol] 2.8 10*3/uL Normal 1.2-4.0 [facility] Comment on above: Performed By: #### 6 1405 #### [facility] [address] [facility] [place] [address], [facility] Lymphocytes/100 WBC (Bld) 48.0 % High 20.0-45.0 [facility] Comment on above: Performed By: #### 6 1405 #### [facility] [address] [facility] [place] [place] [address], [facility] MCH (RBC) [Entitic mass] 24.5 pg Low 27.0-33.0 [facility] Comment on above: Performed By: #### 6 1405 #### [facility] [address] [facility]. [address] MCHC (RBC) [Mass/Vol] 30.3 g/dL Low 32.0-35.0 [facility] Comment on above: Performed By: #### 6 1405 #### [facility] [address] [facility] [place] [address], [facility] MCV (RBC) [Entitic vol] 81.0 fL Low 82.0-98.0 [facility] Comment on above: Performed By: #### 6 1405 #### [facility] [address] [facility] [place] [address], [facility] Monocytes (Bld) [#/Vol] 0.4 10*3/uL Normal 0.1-1.0 [facility] Comment on above: Performed By: #### 6 1405 #### [facility] [address] [facility] [place] [address], [facility] MONOS 6.8 % Normal 5.0-12.0 [facility] Comment on above: Performed By: #### 6 1405 #### [facility] [address] [facility] [place] [address], [place] Neutrophils/100 WBC (Bld) 43.2 % Normal 40.0-72.0 [facility] Comment on above: Performed By: #### 6 1405 #### [facility] [address] [place] [address], [facility] Nucleated RBC/100 WBC (Bld) [Ratio] 0 % Normal 0-0 [facility] Comment on above: Performed By: #### 6 1405 #### [facility] [address] [facility] [place] [place] [address], [facility] PLAT CNT 246 10*3/uL Normal 150-400 [facility] Comment on above: Performed By: #### 6 1405 #### [facility] [address] [facility] [place] [address], [facility] RBC (Bld) [#/Vol] 4.32 10*6/uL Normal 3.80-5.00 [facility] Comment on above: Performed By: #### 6 1405 #### [facility] [address] [facility] [place] [place] [address], [facility] WBC (Bld) [#/Vol] 5.87 10*3/uL Normal 4.00-10.60 [facility] Comment on above: Performed By: #### 6 1405 #### [facility] [address] [facility] [place] [place] [address], [facility] HEMOGLOBIN A1Con 05-26-2022 Glucose [Moles/Vol] 100 mmol/L Normal [facility] Comment on above: Performed By: #### 3 1791 #### [facility] [address] [facility] [place] [place] [address], [facility] HbA1c (Bld) [Mass fraction] 5.1 % Normal 4.0-6.0 [facility] Comment on above: Performed By: #### 3 1791 #### [facility] [address] [place] [address], [facility] SEDIMENTATION RATEon 022 SED RATE 17 mm/hr Normal 0-20 [facility] Comment on above: Performed By: #### 6 1405 #### [facility] [address] [place] [address], [facility] US KIDNEYS BLADDERon 05-02-2 022 US KIDNEYS BLADDER EXAMINATION: US KIDN [...] RUSSELL DUFF Date: 2022-05-02 16:18 Normal [facility] CBC AUTO DIFFon 04-29-2022 BASO # 0.0 103/ul Normal 0.0-0.1 [facility] Comment on above: Performed By: #### B MP, LIPA, YVETTE, LIVER #### [facility] [address] [place] [address] [address] Idania Roldan Basophils/100 WBC (Bld) 0.3 % Normal 0.2-2.0 [facility] Comment on above: Performed By: #### B MP, LIPA, YVETTE, LIVER #### [facility] [address] [place] [address] [address] Idania Roldan EO # 0.1 103/ul Normal 0.0-0.7 [facility] Comment on above: Performed By: #### B MP, LIPA, YVETTE, LIVER #### [facility] [address] [place] [address] Dr. Idania Roldan Eosinophils/100 WBC (Bld) 0.9 % Normal 0.9-7.0 [facility] Comment on above: Performed By: #### B MP, LIPA, YVETTE, LIVER #### [facility] [address] [place] [address] Dr. Idania Roldan Erythrocyte distribution width (RBC) [Ratio] 15.4 % Critically high 11.0-15.0 [facility] Comment on above: Performed By: #### B MP, LIPA, YVETTE, LIVER #### [facility] [address] [place] [address] Dr. Idania Roldan Hematocrit (Bld) [Volume fraction] 36.0 % Normal 36.0-48.0 [facility] Comment on above: Performed By: #### B MP, LIPA, YVETTE, LIVER #### [facility] [address] [place] [address] Dr. Idania Roldan Hemoglobin (Bld) [Mass/Vol] 11.2 g/dL Critically low 12.0-16.0 [facility] Comment on above: Performed By: #### B MP, LIPA, YVETTE, LIVER #### [facility] [address] [place] [address] Dr. Idania Roldan IG # 0.02 10e3/ul Normal 0.00-0.03 [facility] Comment on above: Performed By: #### B MP, LIPA, YVETTE, LIVER #### [facility] [address] [place] [address] Dr. Idania Roldan IG % 0.3 % Normal 0.0-0.5 [facility] Comment on above: Performed By: #### B MP, LIPA, YVETTE, LIVER #### [facility] [address] [place] [address] Dr. Idania Roldan LYMPH # 2.5 103/ul Normal 1.2-3.8 [facility] Comment on above: Performed By: #### B MP, LIPA, YVETTE, LIVER #### [facility] [address] [place] [address] Dr. Idania Roldan Lymphocytes/100 WBC (Bld) 36.2 % Normal 20.5-60.0 [facility] Comment on above: Performed By: #### B MP, LIPA, YVETTE, LIVER #### [facility] [address] [place] [address] Dr. Idania Roldan MANUAL DIFF REQ NO Normal The [facility] Comment on above: Performed By: #### B MP, LIPA, YVETTE, LIVER #### [facility] [address] [place] [address] Dr. Idania Roldan MCH (RBC) [Entitic mass] 24.9 pg Critically low 26.7-34.0 [facility] Comment on above: Performed By: #### B MP, LIPA, YVETTE, LIVER #### [facility] [address] [place] [address] Dr. Idania Roldan MCHC (RBC) [Mass/Vol] 31.1 g/dL Normal 29.9-35.2 [facility] Comment on above: Performed By: #### B MP, LIPA, YVETTE, LIVER #### [facility] [address] [place] [address] Dr. Idania Roldan MCV (RBC) [Entitic vol] 80.2 fL Critically low 81.0-99.0 [facility] Comment on above: Performed By: #### B MP, LIPA, YVETTE, LIVER #### [facility] [address] [place] [address] Dr. Idania Roldan MONO # 0.5 103/ul Normal 0.3-0.8 [facility] Comment on above: Performed By: #### B MP, LIPA, YVETTE, LIVER #### [facility] [address] [place] [address] Dr. Idania Roldan Monocytes/100 WBC (Bld) 6.7 % Normal 1.7-12.0 [facility] Comment on above: Performed By: #### B MP, LIPA, YVETTE, LIVER #### [facility] [address] [place] [address] Dr. Idania Roldan NEUT # 3.8 103/ul Normal 1.4-6.5 [facility] Comment on above: Performed By: #### B MP, LIPA, YVETTE, LIVER #### [facility] [address] [place] [address] [address] Idania Roldan Neutrophils/100 WBC (Bld) 55.6 % Normal 43.0-75.0 [facility] Comment on above: Performed By: #### B MP, LIPA, YVETTE, LIVER #### [facility] [address] [place] [address] Dr. Idania Roldan Platelet mean volume (Bld) [Entitic vol] 9.9 fL Normal 9.5-13.5 [facility] Comment on above: Performed By: #### B MP, LIPA, YVETTE, LIVER #### [facility] [address] [place] [address] Dr. Idania Roldan PLT 265 103/ul Normal 150-450 [facility] Comment on above: Performed By: #### B MP, LIPA, YVETTE, LIVER #### [facility] [address] [place] [address] Dr. Idania Roldan RBC 4.49 106/ul Normal 4.20-5.40 [facility] Comment on above: Performed By: #### B MP, LIPA, YVETTE, LIVER #### [facility] [address] [place] [address] Dr. Idania Roldan WBC 6.8 103/ul Normal 4.0-11.0 [facility] Comment on above: Performed By: #### B MP, LIPA, YVETTE, LIVER #### [facility] [address] [place] [address] Dr. Idania Roldan ER URINE PROFILEon 2 Bilirubin Ql (U) Negative Normal NEGATIVE [facility] Comment on above: Performed By: #### P T, PTT #### [facility] [address] [place] [address] Dr. Idania Roldan Clarity (U) CLEAR Normal CLEAR [facility] Comment on above: Performed By: #### P T, PTT #### [facility] [address] [place] [address] Dr. Idania Roldan Color (U) LT. YELLOW Normal YELLOW [facility] Comment on above: Performed By: #### P T, PTT #### [facility] [address] [place] [address] Dr. Idania MENDOSA A micrscopic examina tion will be performed if indicated. Normal [facility] Comment on above: Performed By: #### P T, PTT #### [facility] [address] [place] [address] Dr. Idania Roldan Glucose Ql (U) Negative Normal NEGATIVE The [facility] Comment on above: Performed By: #### P T, PTT #### [facility] [address] [place] [address] Dr. Idania Roldan Hemoglobin Ql (U) LARGE Abnormal NEGATIVE The [facility] Comment on above: Performed By: #### P T, PTT #### [facility] [address] [place] [address] Dr. Idania Roldan Ketones Ql (U) Negative Normal NEGATIVE The [facility] Comment on above: Performed By: #### P T, PTT #### [facility] [address] [place] [address] Dr. Idania Roldan LEUKOCYTES TRACE Abnormal NEGATIVE [facility] Comment on above: Performed By: #### P T, PTT #### [facility] [address] [place] [address] Dr. Idania Roldan Nitrite Ql (U) Negative Normal NEGATIVE The [facility] Comment on above: Performed By: #### P T, PTT #### [facility] [address] [place] [address] Dr. Idania Roldan pH (U) 6.0 [pH] Normal 5-9 [facility] Comment on above: Performed By: #### P T, PTT #### [facility] [address] [place] [address] Dr. Idania Roldan SPEC GRAVITY 1.010 Normal 1.005-<=1.02 5 [facility] Comment on above: Performed By: #### P T, PTT #### [facility] [address] [place] [address] Dr. Idania Roldan UA PROTEIN Negative Normal NEGATIVE/ TRACE [facility] Comment on above: Performed By: #### P T, PTT #### [facility] [address] [place] [address] Dr. Idania Roldan UR MICRO IND INDICATED Normal [facility] Comment on above: Performed By: #### P T, PTT #### [facility] [address] [place] [address] Dr. Idania Roldan Urobilinogen Qn (U) 0.2 {Bryan'U}/dL Normal 0.2 - 1.0 [facility] Comment on above: Performed By: #### P T, PTT #### [facility] [address] [place] [address] Dr. Idania Roldan PROF CHEM 8 (BAS METB)on Anion gap [Moles/Vol] 10.9 mmol/L Normal [facility] Comment on above: Performed By: #### P T, PTT #### [facility] [address] [place] [address] Dr. Idania Roldan Calcium [Mass/Vol] 8.9 mg/dL Normal 8.5-10.1 [facility] Comment on above: Performed By: #### P T, PTT #### [facility] [address] [place] [address] Dr. Idania Roldan Chloride [Moles/Vol] 104 mmol/L Normal 98-107 [facility] Comment on above: Performed By: #### P T, PTT #### [facility] [address] [place] [address] Dr. Idania Roldan CO2 [Moles/Vol] 28.9 mmol/L Normal 21.0-32.0 [facility] Comment on above: Performed By: #### P T, PTT #### [facility] [address] [place] [address] Dr. Idania Roldan Creatinine [Mass/Vol] 0.71 mg/dL Normal 0.55-1.02 [facility] Comment on above: Performed By: #### P T, PTT #### [facility] [address] [place] [address] Dr. Idania Roldan EGFR-AF WELSH >60 Normal >=60 [facility] Comment on above: Performed By: #### P T, PTT #### [facility] [address] [place] [address] Dr. Idania Roldan EGFR-NON AF WELSH >60 Normal >=60 [facility] Comment on above: Performed By: #### P T, PTT #### [facility] [address] [place] [address] Dr. Idania Roldan Glucose [Mass/Vol] 88 mg/dL Normal 74-106 [facility] Comment on above: Performed By: #### P T, PTT #### [facility] [address] [place] [address] Dr. Idania Roldan Potassium [Moles/Vol] 3.8 mmol/L Normal 3.5-5.1 [facility] Comment on above: Performed By: #### P T, PTT #### [facility] [address] [place] [address] Dr. Idania Roldan Sodium [Moles/Vol] 140 mmol/L Normal 136-145 [facility] Comment on above: Performed By: #### P T, PTT #### [facility] [address] [place] [address] Dr. Idania Roldan Urea nitrogen [Mass/Vol] 13.0 mg/dL Normal 7.0-18.0 [facility] Comment on above: Performed By: #### P T, PTT #### [facility] [address] [place] [address] Dr. Idania Roldan Urea nitrogen/Creatinin e [Mass ratio] 18.3 mg/mg Normal [facility] Comment on above: Performed By: #### P T, PTT #### [facility] [address] [place] [address] Dr. Idania Roldan URINE MICROSCOPIC ONLYon BACTERIA NONE SEEN Normal NONE SEEN [facility] Comment on above: Performed By: #### P T, PTT #### [facility] [address] [place] [address] Dr. Idania Roldan Bacteria identified Cx Nom (U) NOT INDICATED Normal [facility] Comment on above: Performed By: #### P T, PTT #### [facility] Laboratory [address] [place] [address] Dr. Idania Roldan CAST NONE SEEN Normal NONE SEEN [facility] Comment on above: Performed By: #### P T, PTT #### [facility] Laboratory [address] [place] [address] Dr. Idania Roldan Crystals LM Nom (Urine sed) NONE SEEN Normal NONE SEEN [facility] Comment on above: Performed By: #### P T, PTT #### [facility] Laboratory [address] [place] [address] Dr. Idania Roldan Epithelial cells LM Ql (Urine sed) FEW Abnormal NONE SEEN /RARE [facility] Comment on above: Performed By: #### P T, PTT #### [facility] Laboratory [address] [place] [address] Dr. Idania Roldan MUCOUS NONE SEEN Normal NONE SEEN [facility] Comment on above: Performed By: #### P T, PTT #### [facility] Laboratory [address] [place] [address] Dr. Idania Roldan RBC 50-75 Abnormal 0-2 [facility] Comment on above: Performed By: #### P T, PTT #### [facility] Laboratory [address] [place] [address] Dr. Idania Roldan WBC 0-2 Abnormal NONE SEEN [facility] Comment on above: Performed By: #### P T, PTT #### [facility] Laboratory [address] [place] [address] Dr. Idania Roldan XR ABD FLAT UP_PA [...] RUSSELL DUFF Date: 2022-04-29 13:37 Normal [facility] US KIDNEYS BLADDERon 022 US KIDNEYS [...] RUSSELL DUFF Date: 2022-04-16 18:24 Normal [facility] CT LOWER EXTREMITY WO CONTRA ST LEFTon 04-07-2022 CT LOWER EXTREMITY WO CONTRAST LEFT [facility] Department of Radiology [address] [place] [address] Patient Name: ELVI MOORE : 1980 Sex: F Age: Race: White Pt. Location: Patient Status: D Ordered Date: 03/24/2022 9:30:00 AM Completed Date: 04/07/2022 05:13 PM Requesting Provider: KEVIN LANE Attending Provider: KEVIN LANE Report Copy To: ARLETH ACHARYA Signs & Symptoms: Z96.659 Presence of unspecified artificial knee joint I10 History: [place] Comments: , left knee Exam: CT LOWER [...] arthroplasty. Electronically signed: Elvis Perez. Transcribed by: [email or web address], User Resident: Electronically Signed by: ELVIS PEREZ @ 04/12/2022 09:46 AM Normal [facility] Comment on above: Order Comment: , lef t knee C REACTIVE PROTEINon 022 CRP [Mass/Vol] 2.2 mg/L Normal 0.0-7.0 [facility] Comment on above: Performed By: #### 3 1791 #### [address] SEDIMENTATION RATEon 022 SED RATE 30 mm/hr High 0-20 [facility] Comment on above: Performed By: #### 5 6506 #### [facility] [address] [place], [place] [id number] [place] [address] KNEE LEFT 1 OR 2 VWSon 02-12 KNEE LEFT 1 OR 2 VWS [facility] Department of Radiology [address] [place] [phone] Patient Name: ELVI MOORE : 1980 Sex: [...] report. Electronically signed: Sathya Christianson. Transcribed by: [email or web address], User Resident: Electronically Signed by: SATHYA CHRISTIANSON @ 02/13/2022 10:48 PM Normal [facility] Comment on above: Order Comment: LT KN EE REANNA Operative Reporton 2 Operative Report MR#: [id number] S [facility] Pt. Name: Elvi Moore Room #: 0C Discharge Date: Birthdate: 1980 OPERATIVE REPORT DATE OF SURGERY: 02/12/2022 SURGEON: Kevin Lane M.D. METER/RELAY TECHNICIAN: None. PREOPERATIVE DIAGNOSIS: Left total knee arthroplasty [...] Lane M.D. Date Trans: 02/12/2022 09:35 A/taylor [id number] cc: Arleth Acharya M.D. [address] [place] [address] Normal [facility] POC GLUCOSE LABon 02-12-2022 Glucose [Mass/Vol] 96 mg/dL Normal 70-100 [facility] Comment on above: Performed By: #### 8 5499 ####[facility] [facility], [place] [phone] [place] [address] C REACTIVE PROTEINon 022 CRP [Mass/Vol] 1.7 mg/L Normal 0.0-7.0 [facility] Comment on above: Performed By: #### 6 1405 #### [facility] [address] [place], [place] [id number] [place] [address] SEDIMENTATION RATEon 022 SED RATE 18 mm/hr Normal 0-20 [facility] Comment on above: Performed By: #### 6 1405 #### [facility] [address] [place], [place] [id number] [place] [address] KNEE LEFT 3 VWSon 12-26-2021 KNEE LEFT 3 VWS [facility] Department of Radiology [address] [place] [phone] Patient Name: ELVI MOORE : 1980 Sex: F Age: Race: White Pt. Location: Patient Status: Ordered Date: 12/26/2021 1:45:00 PM Completed Date: 12/26/2021 01:50 PM Requesting Provider: JRODEN BRODY Attending Provider: Report Copy To: Signs & Symptoms: Z47.1 Aftercare following joint replacement surgery I10 History: [place] Comments: , , , Ordering Provider - JORDENMICHELLE MORRISONALBERT AGUILAR , Exam: KNEE LEFT 3 [facility] KNEE LEFT 3 S 12/26/2021 1:50 [...] report. Electronically signed: Yvette Desai. Transcribed by: [email or web address], User Resident: CHRISTELLE ABDI Electronically Signed by: YVETTE DESAI @ 12/26/2021 04:27 PM I personally read this/these film(s) with this resident Normal [facility] Comment on above: Order Comment: , , = ========= , Ordering Provider - JORDEN HERRRusty AGUILAR , KNEE LEFT 3 [facility] 12-09-2021 KNEE LEFT 3 [facility] Department of Radiology [address] [place] [phone] Patient Name: ELVI MOORE : 1980 Sex: F Age: Race: White Pt. Location: Patient Status: D Ordered Date: 12/09/2021 9:30:00 AM Completed Date: 12/09/2021 09:37 AM Requesting Provider: JORDEN BRODY Attending Provider: JORDEN BRODY Report Copy To: Signs & Symptoms: Z47.1 Aftercare following joint replacement surgery I10 History: [place] Comments: Exam: KNEE LEFT 3 VWS KNEE LEFT 3 S HISTORY: Knee replacement, follow-up. COMPARISON: 10/30/2021. IMPRESSION: 1. Redemonstrated knee arthroplasty, no hardware complication or acute abnormality. Small to moderate joint effusion. 2. Improving soft tissue changes. Electronically signed: Ezio Roberts. Transcribed by: [email or web address], User Resident: Electronically Signed by: EZIO ROBERTS @ 12/10/2021 08:39 AM Normal [facility] Operative Reporton Operative Report MR#: [id number] [facility] Pt. Name: Elvi Moore Room #: 0C Discharge Date: Birthdate: 1980 OPERATIVE REPORT DATE OF SURGERY: 10/30/2021 SURGEON: Kevin Lane M.D. METER/RELAY TECHNICIAN: 1. MD [place]. 2. LAVON Quinones. ANESTHESIA: [...] arthrotomy was closed itself with #2 interrupted [id number] suture. The remainder of the incision was closed in a layered fashion. Sterile dressing was applied. At the conclusion of the case, all sponge and needle counts were correct. I was present for the critical portions of this case. Electronically Signed by: Kevin Lane M.D. 10/30/2021 07:[address] M.D. Date Dict: 10/30/2021/11:00 A/Kevin Lane M.D. Date Trans: 10/30/2021 12:34 P/mmo [id number] cc: Arleth Acharya M.D. [address], [facility] [phone] Nasir Rony Thacker, DO [address] [facility] [address] [place] [id number] Normal [facility] POC GLUCOSE LABon 10-30-2021 Glucose [Mass/Vol] 88 mg/dL Normal 70-100 [facility] Comment on above: Performed By: #### 8 5499 ####[address] [place] [address], [facility] PORTABLE KNEE LEFT 2 VWSon 0 10-30-2021 PORTABLE KNEE LEFT 2 VWS [facility] Department of Radiology [address] [place] [address] Patient Name: ELVI MOORE : [...] complication Electronically signed: Yvette Andrade. Transcribed by: [email or web address], User Resident: Electronically Signed by: YVETTE ANDRADE @ 10/30/2021 11:20 AM Normal [facility] Comment on above: Order Comment: Hardw are Evaluation, Postop PACU films for L knee s/p TKA. AP and lateral please *MRSA/MSSA DNA NASALon 10-07 *MRSA/MSSA DNA NASAL Clinical Report: (D) Specimen: NASAL SWAB Collected: 10/07/2021 10:51 Status: Final Last Updated: 10/07/2021 15:44 MSSA DNA (Final) Negative MRSA DNA (Final) Negative Normal [facility] Comment on above: Performed By: #### 3 1595 ####[facility] APTTon 10-07-2021 aPTT Coag (Bld) [Time] 32.2 s Normal 25.0-35.0 [facility] Comment on above: Result [...] PURPOSE. Performed By: #### 3 1791 #### [facility] [address] [facility] [place] [place] [address], [facility] BASIC METABOLIC PANELon 12- Calcium [Mass/Vol] 9.2 mg/dL Normal 8.6-10.3 [facility] Comment on above: Performed By: #### 3 1791 #### [facility] [address] [facility] [place] [place] [address], [facility] Chloride [Moles/Vol] 106 mmol/L Normal 98-107 [facility] Comment on above: Performed By: #### 3 1791 #### [facility] [address] [facility] [place] [place] [address], [facility] CO2 [Moles/Vol] 28 mmol/L Normal 21-31 [facility] Comment on above: Performed By: #### 3 1791 #### [facility] [address] [facility] [place] [address], [facility] Creatinine [Mass/Vol] 0.77 mg/dL Normal 0.60-1.20 [facility] Comment on above: Performed By: #### 3 1791 #### [facility] [address] [place] [address], [place] GFR/1.73 sq M.predicted among blacks MDRD (S/P/Bld) [Vol rate/Area] mL/min/{1.73_m2} Normal >60 [facility] Comment on above: Performed By: #### 3 1791 #### [facility] [address] [place] [address], [place] GFR/1.73 sq M.predicted among non-blacks MDRD (S/P/Bld) [Vol rate/Area] mL/min/{1.73_m2} Normal >60 [facility] Comment on above: Performed By: #### 3 1791 #### [facility] [address] [place] [address], [place] Glucose [Mass/Vol] 84 mg/dL Normal 70-100 [facility] Comment on above: Performed By: #### 3 1791 #### [facility] [address] [place] [address], [place] Potassium [Moles/Vol] 4.4 mmol/L Normal 3.5-5.1 [facility] Comment on above: Performed By: #### 3 1791 #### [facility] [address] [place] [address], [place] Sodium [Moles/Vol] 142 mmol/L Normal 136-145 [facility] Comment on above: Performed By: #### 3 1791 #### [facility] [address] [place] [address], [place] Urea nitrogen [Mass/Vol] 12 mg/dL Normal 7-25 [facility] Comment on above: Performed By: #### 3 1791 #### [facility] [address] [place] [address], [place] CBC W/DIFFon 10-07-2021 ABS IMM GRANS 0.0 10*3/uL Normal 0.0-0.2 [facility] Comment on above: Performed By: #### 6 1405 #### [facility] [address] [place] [address], [facility] ABS NEUTROPHILS 4.7 10*3/uL Normal 1.6-7.6 [facility] Comment on above: Performed By: #### 6 1405 #### [facility] [address] [place] [address], [facility] Basophils (Bld) [#/Vol] 0.0 10*3/uL Normal 0.0-0.2 [facility] Comment on above: Performed By: #### 6 1405 #### [facility] [address] [place] [address], [facility] Basophils/100 WBC (Bld) 0.3 % Normal 0.0-1.0 [facility] Comment on above: Performed By: #### 6 1405 #### [facility] [address] [place] [address], [facility] Eosinophils (Bld) [#/Vol] 0.2 10*3/uL Normal 0.0-0.5 [facility] Comment on above: Performed By: #### 6 1405 #### [facility] [address] [place] [address], [place] Eosinophils/100 WBC (Bld) 1.9 % Normal 0.0-6.0 [facility] Comment on above: Performed By: #### 6 1405 #### [facility] [address] [place] [address], [facility] Erythrocyte distribution width (RBC) [Ratio] 14.0 % Normal 11.5-15.0 [facility] Comment on above: Performed By: #### 6 1405 #### [facility] [address] [place] [address], [facility] Hematocrit (Bld) [Volume fraction] 37.1 % Normal 36.0-45.0 [facility] Comment on above: Performed By: #### 6 1405 #### [facility] [address] [facility] [place] [place] [address], [facility] Hemoglobin (Bld) [Mass/Vol] 11.3 g/dL Low 12.0-15.0 [facility] Comment on above: Performed By: #### 6 1405 #### [facility] [address] [place] [address], [facility] IMMATURE GRANS 0.1 % Normal 0.0-1.0 [facility] Comment on above: Performed By: #### 6 1405 #### [facility] [address] Lymphocytes (Bld) [#/Vol] 2.5 10*3/uL Normal 1.2-4.0 [facility] Comment on above: Performed By: #### 6 1405 #### [facility] [address] Lymphocytes/100 WBC (Bld) 31.6 % Normal 20.0-45.0 [facility] Comment on above: Performed By: #### 6 1405 #### [facility] [address] MCH (RBC) [Entitic mass] 25.5 pg Low 27.0-33.0 [facility] Comment on above: Performed By: #### 6 1405 #### [facility] [address] [facility]. [address] MCHC (RBC) [Mass/Vol] 30.5 g/dL Low 32.0-35.0 [facility] Comment on above: Performed By: #### 6 1405 #### [facility] [address] [place] [address], [facility] MCV (RBC) [Entitic vol] 83.7 fL Normal 82.0-98.0 [facility] Comment on above: Performed By: #### 6 1405 #### [facility] [address] [place] [address], [facility] Monocytes (Bld) [#/Vol] 0.5 10*3/uL Normal 0.1-1.0 [facility] Comment on above: Performed By: #### 6 1405 #### [facility] [address] [place] [address], [facility] MONOS 6.0 % Normal 5.0-12.0 [facility] Comment on above: Performed By: #### 6 1405 #### [facility] [address] [facility] [place] [address], [facility] Neutrophils/100 WBC (Bld) 60.1 % Normal 40.0-72.0 [facility] Comment on above: Performed By: #### 6 1405 #### [facility] [address] [facility] [place] [address], [facility] Nucleated RBC/100 WBC (Bld) [Ratio] 0 % Normal 0-0 [facility] Comment on above: Performed By: #### 6 1405 #### [facility] [address] [facility] [place] [address], [facility] PLAT CNT 233 10*3/uL Normal 150-400 [facility] Comment on above: Performed By: #### 6 1405 #### [facility] [address] [facility] [place] [address], [facility] RBC (Bld) [#/Vol] 4.43 10*6/uL Normal 3.80-5.00 [facility] Comment on above: Performed By: #### 6 1405 #### [facility] [address] [facility] [place] [address], [facility] WBC (Bld) [#/Vol] 7.85 10*3/uL Normal 4.00-10.60 [facility] Comment on above: Performed By: #### 6 1405 #### [facility] [address] [place] [address], [facility] PROTHROMBIN TIMEon INR Coag (PPP) [Relative time] 0.94 {INR} Normal 0.91-1.16 [facility] Comment on above: Result Comment: [facility] P RECOMMENDED INR FOR WARFARIN THERAPY ----- [...] RANGE. CHEST 1995;108:231S-246S. Performed By: #### 3 4621 #### [facility] [address] [place] [address], [facility] PT Coag (PPP) [Time] 12.6 s Normal 12.3-14.8 [facility] Comment on above: Result Comment: ALL RESULTS MUST BE INTERPRETED WITH RESPECT TO BLOOD DRAWING ARTIFACT OR DILUTION ERROR OF ANTICOAGULANT AT THE TIME OF SAMPLING. Performed By: #### 3 7381 #### [facility] [address] [place] [address], [facility] TYPE AND SCREENon 10-07-2021 ABO INTERPRETATION O Normal [facility] Comment on above: Performed By: #### 3 1790 #### [facility] [address] [place] [id number], [facility] RH INTERPRETATION Positive Normal [facility] Comment on above: Performed By: #### 3 1791 #### [address] *MRSA/MSSA DNA NASALon 08-12 *MRSA/MSSA DNA NASAL Clinical Report: (D) Specimen: NASAL SWAB Collected: 08/12/2021 10:14 Status: Final Last Updated: 08/12/2021 18:58 MSSA DNA (Final) Negative MRSA DNA (Final) Negative Normal [facility] Comment on above: Performed By: #### 6 1405 #### [facility] [address] CBC W/DIFFon 08-12-2021 ABS IMM GRANS 0.0 10*3/uL Normal 0.0-0.2 [facility] Comment on above: Performed By: #### 6 1405 #### [address] ABS NEUTROPHILS 3.7 10*3/uL Normal 1.6-7.6 [facility] Comment on above: Performed By: #### 6 1405 #### [facility] [address] Basophils (Bld) [#/Vol] 0.0 10*3/uL Normal 0.0-0.2 [facility] Comment on above: Performed By: #### 6 1405 #### [address] Basophils/100 WBC (Bld) 0.3 % Normal 0.0-1.0 [facility] Comment on above: Performed By: #### 6 1405 #### [facility] [address] Eosinophils (Bld) [#/Vol] 0.2 10*3/uL Normal 0.0-0.5 [facility] Comment on above: Performed By: #### 6 1405 #### [facility] [address] [facility] [place] [address], [facility] Eosinophils/100 WBC (Bld) 2.9 % Normal 0.0-6.0 [facility] Comment on above: Performed By: #### 6 1405 #### [facility] [address] [place] [address], [facility] Erythrocyte distribution width (RBC) [Ratio] 14.0 % Normal 11.5-15.0 [facility] Comment on above: Performed By: #### 6 1405 #### [facility] [address] [place] [address], [facility] Hematocrit (Bld) [Volume fraction] 37.0 % Normal 36.0-45.0 [facility] Comment on above: Performed By: #### 6 1405 #### [facility] [address] Hemoglobin (Bld) [Mass/Vol] 11.6 g/dL Low 12.0-15.0 [facility] Comment on above: Performed By: #### 6 1405 #### [facility] [address] [place] [address], [facility] IMMATURE GRANS 0.3 % Normal 0.0-1.0 [facility] Comment on above: Performed By: #### 6 1405 #### [facility] [address] [facility] [place] [address], [facility] Lymphocytes (Bld) [#/Vol] 2.1 10*3/uL Normal 1.2-4.0 [facility] Comment on above: Performed By: #### 6 1405 #### [facility] [address] [place] [address], [facility] Lymphocytes/100 WBC (Bld) 32.5 % Normal 20.0-45.0 [facility] Comment on above: Performed By: #### 6 1405 #### [facility] [address] MCH (RBC) [Entitic mass] 26.8 pg Low 27.0-33.0 [facility] Comment on above: Performed By: #### 6 1405 #### [facility] [address] [facility]. [address] MCHC (RBC) [Mass/Vol] 31.4 g/dL Low 32.0-35.0 [facility] Comment on above: Performed By: #### 6 1405 #### [facility] [address] [facility] [place] [address], [facility] MCV (RBC) [Entitic vol] 85.5 fL Normal 82.0-98.0 [facility] Comment on above: Performed By: #### 6 1405 #### [facility] [address] [place] [address], [facility] Monocytes (Bld) [#/Vol] 0.5 10*3/uL Normal 0.1-1.0 [facility] Comment on above: Performed By: #### 6 1405 #### [facility] [address] MONOS 6.9 % Normal 5.0-12.0 [facility] Comment on above: Performed By: #### 6 1405 #### [facility] [address] Neutrophils/100 WBC (Bld) 57.1 % Normal 40.0-72.0 [facility] Comment on above: Performed By: #### 6 1405 #### [facility] [address] [place] [address], [facility] Nucleated RBC/100 WBC (Bld) [Ratio] 0 % Normal 0-0 [facility] Center Comment on above: Performed By: #### 6 1405 #### [facility] [address] [facility] [address], [place] PLAT CNT 223 10*3/uL Normal 150-400 [facility] Comment on above: Performed By: #### 6 1405 #### [facility] [address] [facility] [place] [address], [facility] RBC (Bld) [#/Vol] 4.33 10*6/uL Normal 3.80-5.00 [facility] Comment on above: Performed By: #### 6 1405 #### [facility] [address] [place] [address], [facility] WBC (Bld) [#/Vol] 6.55 10*3/uL Normal 4.00-10.60 [facility] Comment on above: Performed By: #### 6 1405 #### [facility] [address] HEMOGLOBIN A1Con 08-12-2021 Glucose [Moles/Vol] 103 mmol/L Normal [facility] Comment on above: Performed By: #### 3 1791 #### [facility] [address] HbA1c (Bld) [Mass fraction] 5.2 % Normal 4.0-6.0 [facility] Comment on above: Performed By: #### 3 1791 #### [address] KNEE LEFT 3 VWSon 08-12-2021 KNEE LEFT 3 S [facility] Department of Radiology [address] [place] [id number] Patient Name: ELVI MOORE : 1980 Sex: F Age: Race: White Pt. Location: 84 Patient Status: O Ordered Date: 08/12/2021 8:40:00 AM Completed Date: 08/12/2021 08:41 AM Requesting Provider: KEVIN LANE Attending Provider: KEVIN LANE Report Copy To: SELF, REFERRED Signs & Symptoms: M25.562 Pain in left knee I10 History: Comments: evaluate Exam: KNEE LEFT 3 [facility] KNEE LEFT 3 S 08/12/2021 8:42 AM [...] report. Electronically signed: Jah Juarez. Transcribed by: [email or web address], User Resident: JODY KEITH Electronically Signed by: JAH JUAREZ @ 08/12/2021 03:46 PM I personally read this/these film(s) with this resident Normal [facility] Comment on above: Order Comment: [...] available. No qualifying data available.Electronically signed by _hZane Tamez MD 12/30/17 16:02 EDT Normal [facility] Otolaryngology Office/Clinic Noteon 11-18-2017 Otolaryngology Office/Clinic [...] _Zhane Tamez MD 11/18/17 16:31 EST Normal [facility] Otolaryngology Office/Clinic Note Patient seen for dispense of bilateral swim plugs. Both plugs display good fit in the ears, and patient confirmed comfort of fit. Proper insertion/removal was practiced successfully. Plan: Return if issues arise regarding swim plugs. N/C, swim plugs paid at last appointment.Electronicall y signed by _Rima Muñoz 11/18/17 16:04 EST Normal [facility] Otolaryngology Office/Clinic Noteon 10-28-2017 Otolaryngology Office/Clinic [...] by _Kyara RoqueRima 10/28/17 16:31 EST Normal [facility] Otolaryngology Office/Clinic Note Chief Complaint post-opHistory [...] _Zhane Tamez MD 10/28/17 15:41 EST Normal [facility] Otolaryngology Office/Clinic Noteon 09-16-2017 Otolaryngology Office/Clinic [...] _Zhane Tamez MD 09/16/17 16:06 EST Normal [facility] Otolaryngology Consultationo n 04-20-2017 Otolaryngology Consultation [...] _Zhane Tamez MD 04/20/17 16:51 EDT Normal [facility] Vital Signs Date Time Vital Sign Value Performing Clinician Facility 03-07-2024 16:03-0400 Blood Pressure Location ELIZABETH STEPH [facility] 03-07-2024 16:03-0400 Body temperature 97.88 [degF] ELIZABETH STEPH [facility] 03-07-2024 16:03-0400 Diastolic blood pressure 80 mm[Hg] ELIZABETH AKBARRY [facility] 03-07-2024 16:03-0400 Heart rate 87 /min [email or web address] [facility] 03-07-2024 16:03-0400 Respiratory rate 16 /min [email or web address] [facility] 03-07-2024 16:03-0400 Systolic blood pressure 124 mm[Hg] ELIZABETH STEPH [facility] 01-06-2024 18:12-0400 Body height 167.64 cm MD Arleth Acharya Work Phone: [facility] 01-06-2024 18:12-0400 Body mass index (BMI) [Ratio] 25.6 kg/m2 MD Arleth Acharya Work Phone: [facility] 01-06-2024 18:12-0400 Body temperature 98.2 [degF] MD Arleth Acharya Work Phone: [facility] 01-06-2024 18:12-0400 Body weight 72 kg MD Arleth Acharya Work Phone: [facility] 01-06-2024 18:12-0400 Heart rate 93 /min MD Arleth Acharya Work Phone: [facility] 01-06-2024 18:12-0400 Respiratory rate 16 /min MD Arleth Acharya Work Phone: [facility] 01-06-2024 18:12-0400 SaO2% (BldA) [Mass fraction] 99 % MD Arleth Acharya Work Phone: [facility] 09-13-2023 12:04-0500 Blood Pressure Location Diana HAWKINS [facility] 09-13-2023 12:04-0500 Diastolic blood pressure 74 mm[Hg] Diana HAWKINS [facility] 09-13-2023 12:04-0500 Heart rate 64 /min Diana HAWKINS [facility] 09-13-2023 12:04-0500 Respiratory rate 16 /min Diana HAWKINS [facility] 09-13-2023 12:04-0500 Systolic blood pressure 128 mm[Hg] Diana HAWKINS [facility] 05-28-2023 11:12-0400 Body temperature 98 [degF] MD Arleth Acharya Work Phone: [facility] 05-28-2023 11:12-0400 Body weight 70.76 kg MD Arleth Acharya Work Phone: [facility] 05-28-2023 11:12-0400 Diastolic blood pressure 94 mm[Hg] MD Arleth Acharya Work Phone: [facility] 05-28-2023 11:12-0400 Heart rate 88 /min MD Arleth Acharya Work Phone: [facility] 05-28-2023 11:12-0400 Respiratory rate 16 /min MD Arleth Acharya Work Phone: [facility] 05-28-2023 11:12-0400 SaO2% (BldA) [Mass fraction] 98 % MD Arleth Acharya Work Phone: [facility] 05-28-2023 11:12-0400 Systolic blood pressure 131 mm[Hg] MD Arleth Acharya Work Phone: [facility] 05-28-2023 11:00-0400 Body height 167.64 cm MD Arleth Acharya Work Phone: [facility] 06-29-2022 09:25-0400 Blood Pressure Location Diana HAWKINS [facility] 06-29-2022 09:25-0400 Diastolic blood pressure 84 mm[Hg] Diana HAWKINS [facility] 06-29-2022 09:25-0400 Heart rate 84 /min Diana HAWKINS [facility] 06-29-2022 09:25-0400 Respiratory rate 16 /min Diana HAWKINS [facility] 06-29-2022 09: Systolic blood pressure 115 mm[Hg] Diana HAWKINS [facility] Encounters Encounter Date Encounter Type Care Provider Facility Start: 12-08-2024 End: 12-08-2024 Emergency department patient visit ARLETH ACHARYA [facility] Start: 12-05-2024 End: 12-05-[facility]24 [facility] Start: 10-19-2024 ambulatory RUKHSANA MILLER [facility] Start: 08-09-2024 End: 08-09-2024 Emergency department patient visit ARLETH ACHARYA [facility] Start: 07-24-2024 End: 07-24-[facility]: 07-19-2024 ambulatory RUKHSANAANUSHA MILLER [facility] Start: 07-17-2024 End: 07-17-2024 ambulatory BILL BROWN [facility] Start: 07-14-2024 End: 07-14-2024 ambulatory KHRIS King [facility] Start: 06-01-2024 End: 06-01-2024 ambulatory KHRIS King [facility] Start: 05-01-2024 End: 05-03-2024 [facility] Start: 05-01-2024 End: 05-03-2024 Subsequent hospital visit by physician [facility] Cat Scan Room [facility] CT Scan 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 Start: 03-22-2024 End: 03-22-2024 Departed Referred MD Arleth Acharya Work Phone: [facility] Start: 03-22-2024 End: 03-22-2024 ambulatory MD Arleth Acharya Work Phone: [facility] Work Phone: Start: 03-17-2024 ambulatory RUKHSANA MILLER [facility] Start: 03-07-2024 End: 03-07-2024 ambulatory ELIZABETH Kassidy AVCA Facility:[facility] Start: 03-07-2024 End: 03-07-2024 Patient encounter procedure [facility] Start: 03-06-2024 End: 03-07-2024 Emergency department patient [facility] Start: 03-06-2024 End: 03-07-2024 Emergency department patient visit ARLETH M [facility] Start: 02-15-2024 End: 02-15-2024 ambulatory ARLETH Jacqueline [facility] Start: 02-08-2024 End: 02-08-2024 ambulatory DIANA HAWKINS [facility] Start: 02-07-2024 [facility] Start: 01-06-2024 End: 01-06-2024 ambulatory MD Arleth Acharya Work Phone: [facility] Work Phone: Start: 01-06-2024 End: 01-06-2024 Patient encounter procedure MD Arleth Acharya Work Phone: [facility] Work Phone: Start: 12-24-2023 ambulatory RUKHSANA MILLER [facility] Start: 10-12-2023 End: 10-12-2023 Patient encounter procedure Diana HAWKINS [facility] Start: 09-13-2023 End: 09-13-2023 Patient encounter procedure [facility]INS [facility] Start: 06-28-2023 ambulatory Osiris Bentonzakiay Facility:[facility] Start: 05-28-2023 End: 05-28-2023 ambulatory MD Arleth Acharya Work Phone: [facility] Work Phone: Start: 05-28-2023 End: 05-28-2023 Registered Recurring MD Arleth Acharya Work Phone: [facility] Work Phone: Start: 01-25-2023 End: 01-25-2023 ambulatory GENNA HEATON Facility:[facility] Start: 01-21-2023 End: 01-22-[address] ARLETH ACHARYA . Facility:[facility] Start: 01-04-2023 End: 01-04-2023 Patient encounter procedure Diana HAWKINS [facility] Start: 10-10-[address] ARLETH ACHARYA . Facili ty:[facility] Start: 10-06-2022 End: 10-06-[address] ARLETH ACHARYA . Facility:[facility] Start: 09-30-2022 End: 10-01-[address] ARLETH ACHARYA . Facility:[facility] Start: 09-21-2022 End: 09-21-[address] ARLETH ACHARYA . Facility:[facility] Start: 08-27-2022 Encounter for preprocedural laboratory examination DR DIANA HAWKINS . [facility] Start: 08-27-2022 End: 08-27-[address] [...] encounter procedure Diana HAWKINS [facility] Start: 06-11-[address] Facility :[facility] Start: 06-09-2022 End: 06-11-[address] Facility:[facility] Start: 06-03-2022 End: 06-03-2022 Emergency department patient visit ARLETH ACHARYA Facility:[facility] Start: 06-01-2022 End: 06-01-2022 Evaluation and management of inpatient Kevin Lane Facility:[facility] Start: 05-26-2022 End: 05-27-[address] Facility:[facility] Start: 05-26-2022 End: 05-27-2022 Encounter for preprocedural laboratory examination Kevin Lane Facility:[facility] Start: 05-16-2022 ambulatory NICK YOO Facility: Start: 05-01-2022 End: 05-02-2022 ambulatory NICK YOO Facility: Start: 04-29-2022 End: 04-29-2022 ambulatory ENEDINA IVEY . Facility: Start: 04-16-2022 End: 04-17-[address] ARLETH ACHARYA . Facility: Start: 04-07-2022 End: 04-08-[address] Facility:[facility] Start: 03-24-2022 End: 03-25-2022 ambulatory REFERRED SELF Facility:[facility] Start: 02-12-2022 End: 02-13-[address] Facility:[facility] Start: 01-09-2022 End: 01-10-2022 ambulatory REFERRED SELF Facility:[facility] Start: 12-26-2021 End: 12-27-2021 ambulatory REFERRED SELF Facility:[facility] Start: 12-09-2021 End: 12-10-2021 ambulatory REFERRED SELF Facility:[facility] Start: 10-30-2021 End: 10-31-[address] Facility:[facility] Start: 10-11-2021 End: 11-11-2021 ambulatory Kevin Madaying Facility:[facility] Start: 10-07-2021 End: 10-08-2021 ambulatory Kevin Nassaring Facility:[facility] Start: 10-06-2021 End: 10-11-2021 ambulatory Kevindarrel Nassaring Facility:[facility] Start: 08-12-2021 End: 08-13-2021 ambulatory REFERRED SELF Facility:[facility] Start: 2017 End: 12-31-2017 Ambulatory ZHANE W TAMEZ Facility:[facility] Start: 11-18-2017 End: 11-19-2017 Ambulatory ZHANE W TAMEZ Facility:[facility] Start: 10-28-2017 End: 10-29-2017 Ambulatory Rima Sparrow Facility:[facility] Start: 10-14-2017 End: 10-15-2017 Ambulatory ZHANE W TAMEZ Facility:[facility] Start: 09-16-2017 End: 09-17-2017 Ambulatory ZHANE W TAMEZ Facility:[facility] Start: 06-24-2017 Ambulatory ZHANE W TAMEZ Facility :[facility] Start: 04-20-2017 End: 04-21-2017 Ambulatory ZHANE W TAMEZ [facility] Procedures Date Procedure Procedure Detail Performing Clinician [...] above: Performed By: #### 3 [id number] #### [facility] [place] [address], [facility] Appendectomy Diana HAWIKNS Arthroplasty of knee Diana HAWKINS Arthroscopy of knee Diana HAWKINS Bypass of stomach Diana GRIMES Cholecystectomy Diana ALVARADO Hysterectomy Diana HAWKINS Implantation of temp orary spinal cord stimulator Diana HAWKINS Tonsillectomy Diana HAWKINS Plan of Treatment Date Care Activity Detail Author Start: 05-11-2024 Influenza vaccination Flu vaccine (# 1) [facility] [employer] Start: 06-11-2023 COVID-19 Vaccine ( season) COVID-19 Vaccine () [facility] Start: 05-28-2023 [facility] Start: 2021 Lipid panel [facility] [employer] Start: 2021 Screening for malign ant neoplasm of breast Breast cancer screen [facility] Start: 07-10-2021 DTaP/Tdap/Td vaccine (2 - Td or Tdap) DTaP/Tdap/Td vaccine (2 - Td or Tdap) [facility] Start: 2016 Diabetes screen Diabetes screen [facility] Start: 12-31-1999 Hepatitis C screening Hepatitis C sc reen [facility] [employer] Start: 1996 HIV screening HIV screen [facility] [employer] Start: 1993 Depression Screen Depression Screen [facility] Start: 1982 Varicella vaccine (1 of 2 - 2-dose childhood series) Varicella vaccine (1 of 2 - 2-dose childhood series) [facility] Start: 1981 Hepatitis B vaccine (1 of 3 - 3-dose series) Hepatitis B vaccine (1 of 3 - 3-dose series) [facility] End: 05-01-2024 CT Neck W contrast IV [facility] Work Phone: Comment on above: 1 Occurrences starti ng 05/01/2024 until 05/01/2024 Iron binding capacit y [Mass/volume] in Serum or Plasma [facility] Iron saturation [Mas s Fraction] in Serum or Plasma [facility] Immunizations Immunization Date Immunization Notes Care Provider Fa [facility] 07-29-2022 influenza virus vacc ine, unspecified formulation ELIZABETH VACA [facility] 07-29-2022 SARS-CoV-2 (COVID-19 ) [id number] ELIZABETH VACA [facility] 10-08-2021 SARS-CoV-2 (COVID-19 ) mRNA BNT-162b2 vax Diana [employer] [facility] 01-30-2021 SARS-CoV-2 (COVID-19 ) mRNA BNT-162b2 vax [employer] [facility] 01-09-2021 SARS-CoV-2 (COVID-19 ) mRNA BNT-162b2 vax Diana [employer] [facility] 07-11-2020 influenza virus vacc ine, unspecified formulation [employer] [facility] 07-03-2020 influenza virus vacc ine, unspecified formulation [employer] [facility] 07-18-2019 influenza virus vacc ine, unspecified formulation [employer] [facility] 07-08-2018 influenza virus vacc ine, unspecified formulation Diana [employer] [facility] 01-01-2016 pneumococcal polysaccharide vaccine, 23 valent Diana ROSS [facility] 09-17-2013 influenza virus vacc ine, unspecified formulation Diana ROSS [facility] 07-10-2011 tetanus toxoid, redu demar diphtheria toxoid, and acellular pertussis vaccine, adsorbed Diana HAWKINS [facility] Payers Date Payer Category Payer Unknown [id number] Self-pay 2017 Unknown 2012 Unknown [id number] 2012 Unknown [id number] 1980 Unknown [id number] .16.8 40.1.629922.3.579.2.647 1980 Unknown [id number] .16.8 40.1.992826.3.579.2.647 1980 Unknown [id number] .16.8 40.1.342728.3.579.2.647 1980 Unknown [id number] .16.8 40.1.774825.3.579.2.647 1980 Unknown [id number] .16.8 40.1.972420.3.579.2.647 1980 Unknown [id number] 2.16.8 40.1.243901.3.579.2.647 1980 Unknown [id number] 2.16.8 40.1.707879.3.579.2.647 1980 Unknown [id number] .16.8 40.1.769549.3.579.2.647 1980 Unknown [id number] .16.8 40.1.080460.3.579.2.647 1980 Unknown [id number] 2.16.8 40.1.612893.3.579.2.647 1981 Unknown [id number] 2.16.8 40.1.630720.3.579.2.647 1981 Unknown [id number] 2.16.8 40.1.472782.3.579.2.647 1981 Unknown [id number] 2.16.8 40.1.923156.3.579.2.647 1981 Unknown [id number] 2.16.8 40.1.634186.3.579.2.647 1981 Unknown [id number] 2.16.8 40.1.648523.3.579.2.647 1980 Unknown [id number] 2.16.8 40.1.513517.3.579.2.647 1980 Unknown [id number] 2.16.84 0.1.141203.3.579.2.593 1980 Unknown [id number] 2.16.84 0.1.570641.3.579.2.593 1980 Unknown [id number] 2.16.84 0.1.250623.3.579.2.593 1980 Unknown [id number] 2.16.84 0.1.590204.3.579.2.593 1980 Unknown [id number] 2.16.84 0.1.855664.3.579.2.593 1981 Unknown [id number] 2.16.84 0.1.086927.3.579.2.593 1981 Unknown [id number] 2.16.84 0.1.889995.3.579.2.593 1981 Unknown [id number] 2.16.84 0.1.801560.3.579.2.593 1981 Unknown [id number] 2.16.84 0.1.908587.3.579.2.593 1981 Unknown [id number] 2.16.84 0.1.940881.3.579.2.593 1981 Unknown [id number] 2.16.84 0.1.831317.3.579.2.593 1981 Unknown [id number] 2.16.84 0.1.862073.3.579.2.593 1981 Unknown [id number] 2.16.84 0.1.752623.3.579.2.593 1981 Unknown [id number] 2.16.84 0.1.186052.3.579.2.593 1981 Unknown [id number] 2.16.84 0.1.896445.3.579.2.593 1981 Unknown [id number] 2.16.84 0.1.667816.3.579.2.593 1981 Unknown [id number] 2.16.84 0.1.270058.3.579.2.593 1981 Unknown [id number] 2.16.84 0.1.024096.3.579.2.593 1981 Unknown [id number] 2.16.8 40.1.003457.3.579.2.173 1980 Unknown [id number] 2.16. 840.1.157076.3.579.2.175 1981 Unknown [id number] 2.16.8 40.1.900790.3.579.2.727 1980 Unknown [id number] 2.16.8 40.1.942702.3.579.2.727 1981 Unknown [id number] 2.16. 840.1.943113.3.579.2.1286 1981 Unknown [id number] 2.16.8 40.1.560006.3.579.2.1286 1981 Unknown [id number] 2.16.8 40.1.689203.3.579.2.1286 1981 Unknown [id number] 2.16.8 40.1.635875.3.579.2.1286 1981 Unknown [id number] 2.16.8 40.1.662299.3.579.2.1286 1981 Unknown [id number] 2.16.8 40.1.552083.3.579.2.1286 1959 Self-pay [id number] Unknown [id number] 2.16.8 40.1.604474.3.579.2.531 Unknown [id number] 2.16.8 40.1.445930.3.579.2.531 Unknown [id number] 2.16.8 40.1.314904.3.579.2.531 Social History Date Type Detail Facility Start: 06-29-2022 End: 04-18-2024 Tobacco smoking status Ex-smoker (finding) [facility] Start: 04-18-2024 Sex Assigned At Female [facility] Start: 1980 Sex Assigned At Female F [facility] Tobacco smoking status Never [facility] End: 06-11-2016 History of tobacco use Current smoker [facility] End: 06-11-2016 History of tobacco use Cigarette Smoker [facility] History of tobacco use Passive smoker [facility] Start: 04-18-2024 Tobacco use and exposure Smokeless tobacco non-user [facility] Start: 04-18-2024 Alcohol intake Current non-dr [employer] 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[employer] (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) [facility] Start: 04-18-2024 History of Social function [facility] Start: 1980 Sex Assigned At Not on file [facility] Functional Status Date Assessment Result Facility 03-07-2024 Functional Status N/A [facility] 10-12-2023 Functional Status N/A [facility] 09-13-2023 Functional Status N/A [facility] 06-29-2022 Functional Status N/A [facility] Clinical Notes 06-16-2022 to 10-19-2024 Note Date & Type Note Facility 10-19-2024 Note Pain Medicine Medical [address] [address] Subjective Patient ID: Elvi Moore is a [...] applied Response to Interventions: Medication is effective, SCS 43 year old female here follow up [...] retention loop lost. She is working with [facility] to aid in programming options but overall [...] extremity pregabalin (Lyrica) 50 mg capsule HYDROcodone-acetaminophen (Holly) 5-325 mg tablet DULoxetine (Cymbalta) [address] capsule 4. Other chronic postprocedural pain pregabalin (Lyrica) 50 mg capsule HYDROcodone-acetaminophen (Holly) 5-325 mg tablet 5. Presence of neurostimulator Discussed chronic pain, medication use, treatment goals. Medication risk and benefits discussed. The Spine Diagram and Test results were used to explain the condition. PLAN: 1. Continue Holly 5/325mg TID PRN for severe pain 8-10 [...] questions are ans (more content not included)... [facility] 07-24-2024 Note Orthopedic Surgery Subjective New Patient [...] sees pain management and is currently taking Holly every 8 hours and Lyrica. She also [...] TKA with beltran (more content not included)... [facility] 07-19-2024 [place] [address] Subjective Patient ID: Elvi Moore is a [...] retention loop lost. She is working with [facility] to aid in programming options but overall [...] to explain the condition. PLAN: 1. Continue Holly 5/325mg TID PRN for severe pain 8-10 [...] to patient, alicia (more content not included)... [facility] 06-01-2024 Note HPI 43 yo [...] Blood work Appointment with Dr Burkett [facility] 03-17-2024 [place] [address] Subjective Patient ID: Elvi Moore is a [...] retention loop lost. She is working with [facility] to aid in programming options but overall [...] type 1 of left lower extremity HYDROcodone-acetaminophen (Holly) 5-325 mg tablet gabapentin (Neurontin) 300 mg capsule 2. Other chronic postprocedural pain HYDROcodone-acetaminophen (Holly) 5-325 mg tablet gabapentin (Neurontin) 300 mg capsule Discussed chronic pain, medication use, treatment goals. Medication risk and benefits discussed. The Spine Diagram and Test results were used to explain the condition. PLAN: 1. Continue Holly 5/325mg TID PRN for severe pain 8-10 -gabapentin 300mg at night for one week can titrate up to 300mg BID or 600mg at night. 2. MAPS/OARRS pulled and reviewed. -ORT/COT 10/10/24 -ODS 3. Lumbar xrays reviewed with patient [...] compliance m (more content not included)... [facility] 03-07-2024 Hospital Discharge instructions Patient Education [...] include: ?8 oz (237 mL) of milk, dndrwwn-wdnmoqemirhw-opnxa milk, and calcium-fortifiedfruit juice. Calcium-fortified means that [...] ?Spinach (cooked), rhubarb, beets, sweet potatoes, and Cuban chard. ?Peanuts. ?Potato chips, malagasy fries, and baked potatoes with skin on. ?Nuts and nut products. ?Chocolate. If you regularly take a diuretic medicine, make sure to eat at least 1 or 2 servings of fruits or vegetables that are high in potassium each day. These include: ?Avocado. ?Banana. ?[place], prune, carrot, or tomato juice. ?Baked potato. [...] magnesium, fish oil, or vitamin B6. Take plzs-fau-vizguht and prescription medicines only as told by [...] Casseroles. Pizza. Lasagna. Frozen meals. Potato chips. Dutch fries. The items listed above may not [...] provider. Document Revised: 01/07/2023 Document Reviewed: 01/07/2023 [employer] Patient Education 2022 [employer]. Follow Up Care 01/26/2024 10:43:28 With:ELIZABETH VACA PA-C, URL Address: [address] [place] [address]. [place] [address] [phone] When: Unknown [facility] 12-24-2023 Note Pain Medicine Medical [address] [address] Subjective Patient ID: Elvi Moore is a [...] Interventions: Medication (See MAR) Response to Interventions: Holly - effective, SCS effective 42 year old female here follow up for chronic left leg pain. Her pain is a 7/10 and is worse with standing and it is in her left knee. She states she has been working with [employer] to make adjustments to get more coverage [...] retention loop lost. She is working with [facility] to aid in programming options but overall [...] type 1 of left lower extremity HYDROcodone-acetaminophen (Holly) 5-325 mg tablet gabapentin (Neurontin) 300 mg capsule 2. Other chronic postprocedural pain HYDROcodone-acetaminophen (Holly) 5-325 mg tablet gabapentin (Neurontin) 300 mg capsule Discussed chronic pain, medication use, treatment goals. Medication risk and benefits discussed. The Spine Diagram and Test results were used to explain the condition. PLAN: 1. Continue Holly 5/325mg TID PRN for severe pain 8-10 [...] compliance monit (more content not included)... [facility] 10-12-2023 Hospital Discharge instructions Patient [...] HAWKINS Address: [facility] [address] [place] [address]- Business (1) When:01/11/2024 10:36:33 Comments:With a stone metabolic workup [facility] 09-13-2023 Hospital Discharge instructions Patient Education 09/13/2023 [...] including vitamins, herbs, eye drops, creams, and kayz-bwy-onhcvgh medicines. Any problems you or family members [...] provider tells you to take them. Taking gyds-iyj-ygcbwwk medicines, vitamins, herbs, and supplements. Tests You [...] Follow these instructions at home: Medicines Take ufjh-iiy-peydrln and prescription medicines only as told by [...] provider. Document Revised: 06/10/2022 Document Reviewed: 05/09/2021 [employer] Patient Education 2022 [employer] 09/13/2023 12:55:19 Hematuria, Adult Hematuria, Adult Hematuria [...] Follow these instructions at home: Medicines Take bcfz-qak-bnqvwpw and prescription medicines only as told by [...] or the blood stops without treatment. Take agis-zxf-wyymuyb and prescription medicines only as told by your health care provider. Drink enough fluid to keep your urine pale yellow. This information is not intended to replace advice given to you by your health care provider. Make sure you discuss any questions you have with your health care provider. Document Revised: 05/28/2021 Document Reviewed: 05/28/2021 [employer] Patient Education 2022 [employer]. Follow Up Care 08/20/2023 11:43:21 With:ROSS GENTILE, Diana Goss, URL Address: [facility] [address] [place] [address]- [phone] When: Unknown Comments:sched cysto [facility] 01-04-2023 Hospital Discharge instructions Patient Education [...] include: ?Spinach. ?Rhubarb. ?Beets. ?Potato chips and malagasy fries. ?Nuts. If you regularly take a diuretic medicine, make sure to eat at least 1 2 fruits or vegetables high in potassium each day. These include: ?Avocado. ?Banana. ?[place], prune, carrot, or tomato juice. ?Baked potato. [...] Casseroles. Pizza. Lasagna. Frozen meals. Potato chips. Dutch fries. Summary You can reduce your risk [...] 01/22/2012 Document Revised: 01/17/2020 Document Reviewed: 09/07/2017 [employer] Patient Education 2019 [employer] Follow Up Care 10/29/2022 14:23:18 With:ROSS GENTILE, Diana Goss, URL Address: [facility] [address], [place] [address]- When: Unknown [facility] 06-29-2022 Evaluation + Plan note Diagnostic Tests [facility]) 06/29/22 [facility] 06-29-2022 Hospital Discharge instructions Patient [...] Follow these instructions at home: Medicines Take dahz-uxc-hewxtmo and prescription medicines only as told by [...] or the blood stops without treatment. Take waro-kkc-crlriif and prescription medicines only as told by your health care provider. Drink enough fluid to keep your urine clear or pale yellow. This information is not intended to replace advice given to you by your health care provider. Make sure you discuss any questions you have with your health care provider. Document Released: 09/27/2006 Document Revised: 02/21/2020 Document Reviewed: 10/30/2017 [employer] Patient Education 2020 [employer] Follow Up Care 05/06/2022 15:50:29 With:ROSS GENTILE, Diana Goss, URL Address: [facility] [address] [place] [address]- [phone] When: [facility] Note MR#: [id number] I [facility] Pt. Name: Elvi Moore Admitted: [...] Cavazos MD Date Trans: 06/16/2022 02:27 P/taylor [id number] cc: Arleth Acharya M.D. [address] [place] [address] [facility] Evaluation + Plan note Future Appointments Appointment Date:01/11/2023 01:45:00 PM Scheduled Provider:Diana HAWKINS MD Location:[facility] Appointment Type:URO Office Visit [facility] Evaluation + Plan note Future Appointments Appointment Date:02/07/2024 10:15:00 AM Scheduled Provider:Diana HAWKINS MD Location:[facility] Appointment Type:URO Office Visit [facility] Evaluation note No assessment inform ation available [facility] Work Phone: Evaluation note Diagnosis Onset Date Left ankle sprain noneactive [facility] Work Phone: Evaluation note* Diagnosis Pleomorphic adenoma of parotid gland documented in this encounter [facility] course Narrative No data available for this section [facility] progress note No data available for this section [facility] Summary Purpose Family History No Family [...] Specialty Diagnoses / Procedures Referred By Jaspreet t Referred To Contact Radiology Diagnoses Pleomorphic adenoma of parotid gland Procedures CT SOFT TISSUE NECK W CONTRAST Bill Brown MD [address] [address] Referral ID Status Reason Start Date Expiration Date Visits Re quested Visits Authorized [id number] Closed 05/01/2024 07/29/2024 1 1 Additional Source Comments INFORMATION SOURCE (unrecogn ized section and content) DATE CREATED AUTHOR 03/31/2018 [facility] DATE CREATED AUTHOR AUTHOR'S ORGANIZ ATION 06/23/2022 [facility] DATE CREATED AUTHOR AUTHOR'S ORGANIZ ATION 01/28/2023 [facility] [place] [facility] DATE CREATED AUTHOR AUTHOR'S ORGANIZ ATION 03/31/2024 [facility] DATE CREATED AUTHOR AUTHOR'S ORGANIZ ATION 05/04/2024 [facility] DATE CREATED AUTHOR AUTHOR'S ORGANIZ ATION 07/19/2024 [facility] DATE CREATED AUTHOR AUTHOR'S ORGANIZ ATION 10/27/2024 [facility] DATE CREATED AUTHOR AUTHOR'S ORGANIZ ATION 12/10/2024 [facility] DATE CREATED AUTHOR AUTHOR'S ORGANIZ ATION 12/10/2024 [facility] Care Team (unrecognized sect ion and content) [...] sebastian Active Osiris Calderón APRN Attending Provider Actvazquez argueta Team Status: Inactive Member Role Status Dates Harry Pettit MD Attending Provider Active Star t: March 22, 2024 End: March 22, 2024 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 Start Date End Date Arleth Acharya MD [address] [place] [address] PCP - General 12/30/14 Goals (unrecognized section and content) Goals may be documented in a n alternate section Reason for Visit (unrecogniz ed section and content) Specialty Diagnoses / Procedures Referred By Contac t Referred To Contact Radiology Diagnoses Pleomorphic adenoma of parotid gland Procedures CT SOFT TISSUE NECK W CONTRAST Bill Brown MD [address] [phone] Referral ID Status Reason Start Date Expiration Date Visits Re quested Visits Authorized [id number] Closed 05/01/2024 07/29/2024 1 1 FOR RECORDS [...] BE BASED ON THE PRIMARY CLINICAL RECORDS. [facility]. provides no warranty or guarantee of the accuracy or completeness of information in this document.
[2024-12-14 16:06] LABS: Estimated Average Glucose 100 mg/dL; Glycohemoglobin A1C 5.1 % (4.5-6.2)
[2024-12-14 16:13] LABS: Alanine Aminotransferase 20 U/L (14-59); Albumin Level 3.3 g/dL (3.4-5.0); Alkaline Phosphatase 124 U/L (46-116); Anion Gap 8.7; Aspartate Amino Transferase 15 U/L (15-37); Bilirubin Total 0.2 mg/dL (0.2-1.0); Calcium 8.2 mg/dL (8.5-10.1); Chloride 104 mmol/L (98-107); Chol HDL Ratio 1.8; Cholesterol 129 mg/dL (<=200); Estimated GFR (African America >60 (>=60 mL/min/1.73m^2); Estimated GFR (Non-African Ame >60 (>=60 mL/min/1.73m^2); Free T3 2.74 pg/mL (2.18-3.98); Globulin 3.4 g/dL; Glucose 80 mg/dL (74-106); HDL Cholesterol 73 mg/dL (40-60); Potassium 4.7 mmol/L (3.5-5.1); Sodium 140 mmol/L (136-145); Thyroid Stimulating Hormone 1.175 uIU/mL (0.358-3.740); Total Protein 6.7 g/dL (6.4-8.2); Triglycerides 66 mg/dL (<=150); VLDL CHOLESTEROL 13.2 mg/dL
== END 2024-12-14 15:28 | disposition home or self-care (01) ==
LOC: LAB 15:27
PROVIDERS: PCP Family Medicine; Visit Provider Family Medicine
DX: Z00.00 Encounter for general adult medical examination without abnormal findings (principal)
CPT/HCPCS: 36415; 80053; 80061; 83036; 84436; 84443; 84481; 85025

== ENCOUNTER 2025-01-16 10:46 | Outpatient (OUT) | payer OTHER, SELFPAY ==
--- OUTSIDE RECORDS SUMMARY | 2025-01-16 11:08 | XMS_ITS | CCD ---
Author Organization [facility] Care Team Providers Care Services Host Name Role Phone TAMEZ ZHANE W Unavailable [...] Unavailable MD Arleth Acharya Primary Care Provider [phone] MD Arleth Acharya Referring Provider DO Calderón Attending Provider MD Arleth Acharya Primary Care Provider [phone] DO Antonio Attending Provider MD Harry Pettit V Attending Provider [phone] Harry Pettit V Attending Unavailable Harry Pettit [...] Unavailable Arleth Acharya MD Primary Care Provider [phone] KHRIS BUCHANAN Attending Unavailable MONIQUE BURKETT Attending Unavailable RUKHSANA MILLER Attending Unavailable RUKHSANA MILLER Referring Unavailable CURLY MORALES Attending Unavailable CURLY MORALES Referring Unavailable LYNNEMONIQUE Referring Unavailable KHRIS BUCHANAN Referring Unavailable KHRIS BUCHANAN Referring Unavailable MONIQUE BURKETT Attending Unavailable RUKHSANA MILLER Attending Unavailable RUKHSANA MILLER Attending Unavailable DIANA HAWKINS Referring Unavailable HOY, ARLETH M Primary Care Unavailable HOY, ARLETH M Referring Unavailable HOY, ARLETH M Primary Care Unavailable HOY, ARLETH M Primary Care Unavailable LATONYA BRYAN Attending Unavailable LATONYA BRYAN Attending Unavailable LATONYA, BRYAN Referring Unavailable HOY, ARLETH M Primary Care Unavailable HOY, ARLETH M Primary Care Unavailable SHERYL ESPINOZA Attending Unavailable HOY, ARLETH M Primary Care Unavailable RUSSELL PEREZ Attending Unavailable HOY, ARLETH M Primary Care Unavailable GLEN OSEI Attending Unavailable ALYSA POWELL Admitting Unavailable Allergies Allergy Classification Reported Allergen(s) Allergy Type Date of Onset Reaction(s) Facility NSAIDs (1 source) Ketorolac; Translations: [ketorolac] Drug Allergy Unknown (qualifier value) [facility] Opioid Agonists (1 source) Meperidine; Translations: [meperidine] Drug Allergy [facility] Prochlorperazine (1 source) Prochlorperazi ne; Translations: [prochlorperaz ine] Drug Allergy Hallucinations (finding) [facility] (8 sources) ketorolac; Translations: [Toradol] Drug Allergy 05-29-20 15 Unknown (qualifier value) [facility] Repository (6 sources) meperidine; Translations: [Demerol HCl] Drug Allergy [facility] Repository (2 sources) Meperidine Drug Allergy 08-01-20 13 [facility] Repository (1 source) Desonide Drug Allergy [facility] Repository (6 sources) Ketorolac; Translations: [ketorolac] Drug Allergy 11-22-19 22 Unknown Reaction [facility] (8 sources) Meperidine; Translations: [meperidine] Drug Allergy 08-01-20 13 Rash [facility] (6 sources) Prochlorperazi ne; Translations: [prochlorperaz ine] Drug Allergy 02-12-20 23 Hallucinations (finding), Hallucinations [facility] (1 source) No Known Medication Allergies; Translations: [No Known Medication Allergies] Propensity to adverse reactions (disorder) [facility] Repository (2 sources) Ketorolac; Translations: [KETOROLAC TROMETHAMINE] Drug Allergy 08-22-20 15 [facility] (1 source) Desonide; Translations: [DESONIDE] Drug [...] tablet (8 sources) Opioid Agonist Start: 09-24-2023 [place] 325 mg-5 mg oral tablet 1 tab(s), Oral, q12hr for pain, 20 tab(s), Refill(s) 0, 1 to 2 tabs every 4 to 6 hours as needed for pain, Pain[id number], 167, cm, 09/13/23 12:07:00 EST, Height/Length Dosing, 70.5, kg, 09/13/23 12:07:00 EST, Weight Dosing Start Date: 09/24/23 Status: Ordered Start: 05-27-2023 take 1 tablet by mary th twice daily Hydrocodone-Acetaminophen Active 1 TAB P O Twice daily May 27, 2023 12:00am Start: 07-27-2022 [place] 325 mg-5 mg oral tablet 1 tab(s), Oral, BID Pain 8-10, 20 tab(s), Refill(s) 0, [id number], 167, cm, 06/29/22 9:28:00 EDT, Height/Length Dosing, 69, kg, 06/29/22 9:28:00 EDT, Weight Dosing Start Date: 07/27/22 Status: Ordered Start: 06-29-2022 take 1 tablet by mary th every six hours [place] 325 mg-5 mg oral tablet tab(s), Or [...] q12hr, # 20 cap(s), Refills(s) 0, Pharmacy: [facility] #[id number], 167, cm, 09/13/23 12:07:00 EST, Height/Length Dosing, [...] mouth 2 times daily 0 Active nystatin 057177 unt/ml oral suspension (1 source) Polyene Antifungal nystatin (MYCOSTATIN ) 543248 UNIT/ML suspension Take by mouth 0 Active [...] Classification Problem Date Documented Da te Episodic/Chronic Acute and unspecified renal failure (1 source) Acute kidney failure, unspecified; Translations: [Acute kidney failure, unspecified] Onset: 01-11-2025 Episodic Anxiety disorders (6 sources) Anxiety; Translations: [...] [Unspecified fall, initial encounter] Onset: 01-06-2024 Episodic E Codes: Fall (1 source) Fall Onset: 01-11-2025 Essential hypertension (1 source) Essential (primary) hypertension; Translations: [ESSENTIAL PRIMARY HYPERTENSION] Onset: 01-27-2023 Chronic Gastrointestinal hemorrhage (1 source) Rectal hemorrhage Onset: 01-11-2025 Episodic Genitourinary congenital anomalies (2 sources) Congenital [...] Onset: 12-09-2021 Chronic Other aftercare (1 source) intermediate manager (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) use 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; Translations: [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 (CURRENT) USE OF ASPIRIN] Onset: 06-03-2022 Episodic Other aftercare (2 sources) Other vermin exterminator (current) drug therapy; Translations: [OTHER 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 (CURRENT) DRUG THERAPY] Onset: 08-12-2021 Episodic Other [...] [Sprain of ankle, unspecified site] 01-06-2024 Episodic Syncope (2 sources) Syncope and collapse; Translations: [Syncope] Onset: 01-11-2025 Episodic Unclassified (1 source) C/O POST OP [...] Translations: [Unspecified abdominal pain] Onset: 04-29-2022 Episodic Deficiency and other anemia (1 source) [...] Test Name Value Interpretation Reference Range Facility C DIFFICILE BY PCRon 025 C. difficile toxin genes MAMIE+probe Ql (Stl) TOXIGENIC C DIFF Negative (qualifier value) 027 NAP1 Negative (qualifier value) Normal PRNEG [facility] Comment on above: Performed By: #### 3 094-0, 03740-3, , 2028-06, E COMMERCE ARCHITECT, 2951- 2, 2777-1, 3084-1, 2731-8 #### [facility] ([id number]) [address], [address] [place] [address] #### [place] #### [facility] ([id number]) [address], [place] [address] CBC AND AUTO DIFFon 01-12-20 25 ABSOLUTE BASOPHIL 0.0 X10E9/L Normal 0.0-0.2 [facility] Comment on above: Performed By: #### 3 094-0, 83666-0, , 2028-06, E COMMERCE ARCHITECT, 2951- 2, 2777-1, 3084-1, 2731-8 #### [facility] ([id number]) [address], [address] [place] [address] #### [place] #### [facility] ([id number]) [address] [place] [address] 97456 ABSOLUTE NEUTROPHIL 5.0 X10E9/L Normal 1.5-6.6 [facility] Comment on above: Performed By: #### 3 094-0, 66754-7, , 2028-06, E COMMERCE ARCHITECT, 2951- 2, 2777-1, 308-1, 2731-05 #### [facility] ([id number]) [address], [address] [place] [address] #### [place] #### [facility] ([id number]) [address] [place] [address] 46273 Basophils/100 WBC (Bld) 0.2 % Normal [facility] Comment on above: Performed By: #### 3 094-0, 60902-1, , 2028-06, E COMMERCE ARCHITECT, 2951- 2, 2777-1, 3083-, 2731-05 #### [facility] ([id number]) [address], [address] [place] [address] #### [place] #### [facility] ([id number]) [address] [place] [address]9029 Eosinophils (Bld) [#/Vol] 0.0 10*3/uL Normal 0.0-0.4 [facility] Comment on above: Performed By: #### 3 094-0, 36555-0, , 2028-06, E COMMERCE ARCHITECT, 2951- 2, 2777-1, 3084-1, 2730-8 #### [facility] ([id number]) [address], [address] [place] [address] #### [place] #### [facility] ([id number]) [address] [place] [address] 99903 Eosinophils/100 WBC (Bld) 0.4 % Normal [facility] Comment on above: Performed By: #### 3 094-0, 81258-3, 2074-0, 2028-06, E COMMERCE ARCHITECT, 2951- 2, 2777-1, 3084-1, 2731-8 #### [facility] ([id number]) [address], [address] [place] [address] #### [place] #### [facility] ([id number]) [address] [place] [address] 52777 Erythrocyte distribution width (RBC) [Ratio] 18.6 % High 11.5-15.0 [facility] Comment on above: Performed By: #### 3 094-0, 89347-6, 0, 2028-06, E COMMERCE ARCHITECT, 2951- 2, 2777-1, 3084-1, 273-8 #### [facility] ([id number]) [address], [address] [place] [address] #### [place] #### [facility] ([id number]) [address] [place] [address] 14040 Hematocrit (Bld) [Volume fraction] 36.9 % Normal 35-47 [facility] Comment on above: Performed By: #### 3 094-0, 68397-5, 2074-0, 2028-06, E COMMERCE ARCHITECT, 2951- 2, 2777-1, 3084-1, 273-8 #### [facility] ([id number]) [address], [address] [place] [address] #### [place] #### [facility] ([id number]) [address] [place] [address] 30026 Hemoglobin (Bld) [Mass/Vol] 11.8 g/dL Normal 11.7-15.5 [facility] Comment on above: Performed By: #### 3 094-0, 52012-6, 0, 2028-06, E COMMERCE ARCHITECT, 2951- 2, 2777-1, 3084-1, 2731-8 #### [facility] ([id number]) [address], [address] [place] [address] #### [place] #### [facility] ([id number]) [address] [place] [address] 69592 Lymphocytes (Bld) [#/Vol] 1.8 10*3/uL Normal 1.0-3.5 [facility] Comment on above: Performed By: #### 3 094-0, 03819-9, , 2028-06, E COMMERCE ARCHITECT, 2951- 2, 2777-1, 3084-1, 273-8 #### [facility] ([id number]) [address], [address] [place] [address] #### [place] #### [facility] ([id number]) [address] [place] [address] 92550 Lymphocytes/100 WBC (Bld) 22.5 % Normal [facility] Comment on above: Performed By: #### 3 094-0, 70529-4, , 2028-06, E COMMERCE ARCHITECT, 2951- 2, 2777-1, 3084-1, 2731-8 #### [facility] ([id number]) [address], [address] [place] [address] #### [place] #### [facility] ([id number]) [address] [place] [address] 14545 MCH (RBC) [Entitic mass] 25.2 pg Low 27-34 [facility] Comment on above: Performed By: #### 3 094-0, 72505-6, 2074-0, 2028-06, E COMMERCE ARCHITECT, 2951- 2, 2777-1, 3084-1, 2731-8 #### [facility] ([id number]) [address], [address] [place] [address] #### [place] #### [facility] ([id number]) [address] [place] [address] 01200 MCHC (RBC) [Mass/Vol] 32.1 g/dL Normal 32-36 [facility] Comment on above: Performed By: #### 3 094-0, 20772-2, , 2028-06, E COMMERCE ARCHITECT, 2951- 2, 2777-1, 3084-1, 273-8 #### [facility] ([id number]) [address], [address] [place] [address] #### [place] #### [facility] ([id number]) [address] [place] [address] 50025 MCV (RBC) [Entitic vol] 78 fL Low 80-100 [facility] Comment on above: Performed By: #### 3 094-0, 84506-3, , 2028-06, E COMMERCE ARCHITECT, 2951- 2, 2777-1, 3084-1, 2731-8 #### [facility] ([id number]) [address], [address] [place] [address] #### [place] #### [facility] ([id number]) [address] [place] [address] 03052 Monocytes (Bld) [#/Vol] 1.0 10*3/uL High 0-0.9 [facility] Comment on above: Performed By: #### 3 094-0, 93493-8, 2074-0, 2028-06, E COMMERCE ARCHITECT, 2951- 2, 2777-1, 3084-1, 2731-8 #### [facility] ([id number]) [address], [address] [place] [address] #### [place] #### [facility] ([id number]) [address] [place] [address] 81034 Monocytes/100 WBC (Bld) 13.1 % Normal [facility] Comment on above: Performed By: #### 3 094-0, 67627-3, 2074-0, 2028-06, E COMMERCE ARCHITECT, 2951- 2, 2777-1, 3084-1, 273-8 #### [facility] ([id number]) [address], [address] [place] [address] #### [place] #### [facility] ([id number]) [address] [place] [address] 97162 Neutrophils/100 WBC (Bld) 63.8 % Normal [facility] Comment on above: Performed By: #### 3 094-0, 46440-8, 0, 2028-06, E COMMERCE ARCHITECT, 2951- 2, 2777-1, 3084-1, 273- #### [facility] ([id number]) [address], [address] [place] [address] #### [place] #### [facility] ([id number]) [address] [place] [address] 92433 Platelet mean volume (Bld) [Entitic vol] 7.9 fL Normal 7-12 [facility] Comment on above: Performed By: #### 3 094-0, 21892-4, 2074-0, 2028-06, E COMMERCE ARCHITECT, 2951- 2, 2777-1, 3084-1, 273-8 #### [facility] ([id number]) [address], [address] [place] [address] #### [place] #### [facility] ([id number]) [address] [place] [address] 40956 Platelets (Bld) [#/Vol] 289 10*3/uL Normal 150-450 [facility] Comment on above: Performed By: #### 3 094-0, 33034-8, , 2028-06, E COMMERCE ARCHITECT, 2951- 2, 2777-1, 3084-1, 2731-8 #### [facility] ([id number]) [address], [address] [place] [address] #### [place] #### [facility] ([id number]) [address] [place] [address] 21411 RBC COUNT 4.70 X10E12/L Normal 3.80-5.20 [facility] Comment on above: Performed By: #### 3 094-0, 91027-4, , 2028-06, E COMMERCE ARCHITECT, 2951- 2, 2777-1, 3084-1, 2731-8 #### [facility] ([id number]) [address], [address] [place] [address] #### [place] #### [facility] ([id number]) [address] [place] [address] 64186 WBC (Bld) [#/Vol] 7.8 10*3/uL Normal 4.0-11.0 [facility] Comment on above: Performed By: #### 3 094-0, 74309-3, , 2028-06, E COMMERCE ARCHITECT, 2951- 2, 2777-1, 3084-1, 2731-8 #### [facility] ([id number]) [address], [address] [place] [address] #### [place] #### [facility] ([id number]) [address] [place] [address] 46331 COMPREHENSIVE METABOLIC PANE Nico 01-11-2025 Albumin [Mass/Vol] 3.8 g/dL Normal 3.2-5.3 [facility] Comment on above: Performed By: #### 3 094-0, 41615-6, , 2028-06, E COMMERCE ARCHITECT, 2951- 2, 2777-1, 3084-1, 2731-8 #### [facility] ([id number]) [address], [address] [place] [address] #### [place] #### [facility] ([id number]) [address] [place] [address] 93114 ALP [Catalytic activity/Vol] 95 U/L Normal 39-130 [facility] Comment on above: Performed By: #### 3 094-0, 79660-3, , 2028-06, E COMMERCE ARCHITECT, 2951- 2, 2777-1, 3084-1, 2731-8 #### [facility] ([id number]) [address], [address] [place] [address] #### [place] #### [facility] ([id number]) [address] [place] [address] 24423 ALT [Catalytic activity/Vol] 21 U/L Normal 0-31 [facility] Comment on above: Performed By: #### 3 094-0, 58691-0, , 2028-06, E COMMERCE ARCHITECT, 2951- 2, 2777-1, 3084-1, 2731-8 #### [facility] ([id number]) [address], [address] [place] [address] #### [place] #### [facility] ([id number]) [address] [place] [address] 32586 Anion gap [Moles/Vol] 7 mmol/L Normal 5-15 [facility] Comment on above: Performed By: #### 3 094-0, 30817-4, , 2028-06, E COMMERCE ARCHITECT, 2951- 2, 2777-1, 3084-1, 2731-8 #### [facility] ([id number]) [address], [address] [place] [address] #### [place] #### [facility] ([id number]) [address] [place] [address] 39446 AST [Catalytic activity/Vol] 35 U/L Normal 0-41 [facility] Comment on above: Performed By: #### 3 094-0, 89293-6, 0, 2028-06, E COMMERCE ARCHITECT, 2951- 2, 2777-1, 3084-1, 273-8 #### [facility] ([id number]) [address], [address] [place] [address] #### [place] #### [facility] ([id number]) [address] [place] [address] 94182 Bilirubin [Mass/Vol] 0.7 mg/dL Normal 0.3-1.2 [facility] Comment on above: Performed By: #### 3 094-0, 64971-8, , 2028-06, E COMMERCE ARCHITECT, 2951- 2, 2777-1, 3084-1, 273-8 #### [facility] ([id number]) [address], [address] [place] [address] #### [place] #### [facility] ([id number]) [address] [place] [address] 73518 Calcium [Mass/Vol] 8.4 mg/dL Low 8.5-10.5 [facility] Comment on above: Performed By: #### 3 094-0, 62182-6, 0, 2028-06, E COMMERCE ARCHITECT, 2951- 2, 2777-1, 3084-1, 2731-8 #### [facility] ([id number]) [address], [address] [place] [address] #### [place] #### [facility] ([id number]) [address] [place] [address] 48215 Chloride [Moles/Vol] 101 mmol/L Normal 98-109 [facility] Comment on above: Performed By: #### 3 094-0, 66055-5, , 2028-06, E COMMERCE ARCHITECT, 2951- 2, 2777-1, 3084-1, 2731-8 #### [facility] ([id number]) [address], [address] [place] [address] #### [place] #### [facility] ([id number]) [address] [place] [address] 60723 CO2 [Moles/Vol] 26 mmol/L Normal 22-32 [facility] Comment on above: Performed By: #### 3 094-0, 64349-2, , 2028-06, E COMMERCE ARCHITECT, 2951- 2, 2777-1, 3084-1, 2731-8 #### [facility] ([id number]) [address], [address] [place] [address] #### [place] #### [facility] ([id number]) [address] [place] [address] 25365 Creatinine [Mass/Vol] 2.63 mg/dL High 0.40-1.00 [facility] Comment on above: Result Comment: METH OD TRACEABLE TO IDMS STANDARD Performed By: #### 3 094-0, 25339-7, , 2028-06, E COMMERCE ARCHITECT, 2951-2, 2777-1, 3084-1, 2731-8 #### [facility] ([id number]) [address], [address] [place] [address] #### [place] #### [facility] ([id number]) [address] [place] [address] 18163 GFR/1.73 sq M.predicted among non-blacks MDRD (S/P/Bld) [Vol rate/Area] 22 mL/min/{1.73_m2} Low >59 [facility] Comment on above: Result Comment: Reported eGFR is based on the CKD-EPI 2020 equation that does not use a race coefficient. Performed By: #### 3 094-0, 95596-9, 0, 2028-06, E COMMERCE ARCHITECT, 2951-2, 2777-1, 3084-1, 2731-8 #### [facility] ([id number]) [address], [address] [place] [address] #### [place] #### [facility] ([id number]) [address] [place] [address] 18789 Glucose [Mass/Vol] 102 mg/dL High 65-99 [facility] Comment on above: Performed By: #### 3 094-0, 79527-6, 0, 2028-06, E COMMERCE ARCHITECT, 2951- 2, 2777-1, 3084-1, 273-8 #### [facility] ([id number]) [address], [address] [place] [address] #### [place] #### [facility] ([id number]) [address] [place] [address] 51780 Potassium [Moles/Vol] 4.7 mmol/L Normal 3.5-5.0 [facility] Comment on above: Performed By: #### 3 094-0, 47274-3, 0, 2028-06, E COMMERCE ARCHITECT, 2951- 2, 2777-1, 3084-1, 2731-8 #### [facility] ([id number]) [address], [address] [place] [address] #### [place] #### [facility] ([id number]) [address] [place] [address] 76201 Protein [Mass/Vol] 7.0 g/dL Normal 6.0-8.0 [facility] Comment on above: Performed By: #### 3 094-0, 23003-7, , 2028-06, E COMMERCE ARCHITECT, 2951- 2, 2777-1, 3084-1, 2731-8 #### [facility] ([id number]) [address], [address] [place] [address] #### [place] #### [facility] ([id number]) [address] [place] [address] 74334 Sodium [Moles/Vol] 134 mmol/L Normal 134-146 [facility] Comment on above: Performed By: #### 3 094-0, 56019-7, , 2028-06, E COMMERCE ARCHITECT, 2951- 2, 2777-1, 3084-1, 2731-8 #### [facility] ([id number]) [address], [address] [place] [address] #### [place] #### [facility] ([id number]) [address] [place] [id number] Urea nitrogen [Mass/Vol] 36 mg/dL High 5-23 [facility] Comment on above: Performed By: #### 3 094-0, 59353-3, , 2028-06, E [employer], 2951- 2, 2777-1, 3084-1, 2731-8 #### [facility] ([id number]) [address], [address] [place] [address] #### CITACU #### [facility] ([id number]) [address] [place] [address] ABDOMEN AND PELVIS WO CON Ton 01-11-2025 CT ABDOMEN AND PELVIS WO CONT CT ABDOMEN AND PELVIS WO CONT History:Bloody stools. History of gastric bypass surgery. Poor renal function CT abdomen and pelvis without contrast Comparison:08/09/2024 Technique: Axial images to the abdomen and pelvis were obtained without contrast. Subsequently sagittal and coronal images were submitted to PACS. Automated exposure control was used Findings: CT abdomen: There are no calcifications in the kidneys, ureters or urinary bladder. No signs of obstruction. No free air or free fluid. No enlarged lymph nodes. No abdominal aortic aneurysm.. No acute process is noted in the unenhanced liver, spleen, gallbladder, adrenal glands or kidneys. Prior cholecystectomy. Suture material compatible with prior bariatric type surgery is noted CT pelvis: No dilated bowel loops or pericolonic fat stranding. No enlarged pelvic or inguinal lymph nodes. No free fluid. Evaluation of the bowel is hampered without oral contrast. There is no free air. There is no free fluid. Prior hysterectomy. Urinary bladder is unremarkable Lumbar spine is free of any acute process. Impression: * No acute intraperitoneal process is noted.' All CT scans at this facility use dose modulation, iterative reconstruction, and/or weight based dosing when appropriate to reduce radiation dose to as low as reasonably achievable. Finalized by Yvette Andrade MD on 01/11/2025 12:44 PM Normal [facility] GI PANELon 01-11-2025 Gastrointestinal pathogens DNA and RNA panel MAMIE+non-probe (Stl) SPECIMEN SOURCE STOOL CAMPYLOBACTER Not detected (qualifier value) PLESIOMONAS Not detected (qualifier value) SALMONELLA Not detected (qualifier value) VIBRIO Not detected (qualifier value) VIBRIO CHOLERAE Not detected (qualifier value) Y. ENTEROCOLITICA Not detected (qualifier value) AGGREGATIVE E COLI Not detected (qualifier value) PATHOGENIC E COLI Not detected (qualifier value) TOXIGENIC E COLI Not detected (qualifier value) SHIGA TOXIN E COLI Not detected (qualifier value) SHIGELLA-E COLI Not detected (qualifier value) CRYPTOSPORIDIUM Not detected (qualifier value) CYCLOSPORA Not detected (qualifier value) E HISTOLYTICA Not detected (qualifier value) GIARDIA LAMBLIA Not detected (qualifier value) ADENOVIRUS Not detected (qualifier value) ASTROVIRUS Not detected (qualifier value) NOROVIRUS Not detected (qualifier value) ROTAVIRUS A Not detected (qualifier value) SAPOVIRUS Not detected (qualifier value) Normal NDET [facility] Comment on above: Performed By: #### 3 094-0, 10017-4, 0, 2028-06, E COMMERCE ARCHITECT, 2951- 2, 2777-1, 3084-1, 2731-8 #### [facility] ([id number]) [address], [address] [place] [address] #### CITACU #### [facility] ([id number]) [address] [place] [address] LIPASEon 01-11-2025 Lipase [Catalytic activity/Vol] 29 U/L Normal 17-40 [facility] Comment on above: Performed By: #### 3 094-0, 04298-7, , 2028-06, E COMMERCE ARCHITECT, 2951- 2, 2777-1, 3084-1, 2731-8 #### [facility] ([id number]) [address], [address] [place] [address] #### CITACU #### [facility] ([id number]) [address] [place] [address] PROTIME AND INRon 01-11-2025 INR Coag (PPP) [Relative time] 0.9 {INR} Normal 0.9-1.2 [facility] Comment on above: Performed By: #### 3 094-0, 87301-0, 0, 2028-06, E COMMERCE ARCHITECT, 2951- 2, 2777-1, 3084-1, 2731-8 #### [facility] ([id number]) [address], [address] [place] [address] #### CITACU #### [facility] ([id number]) [address] [place] [address]59[address] PT Coag (PPP) [Time] 10.9 s Normal 9.8-13.2 [facility] Comment on above: Result Comment: NEW REFERENCE RANGE Performed By: #### 3 094-0, 75269-2, 0, 2028-06, E COMMERCE ARCHITECT, 2951-2, 2777-1, 3084-1, 273-8 #### [facility] ([id number]) [address], [address] [place] [address] #### CIT[place]U #### [facility] ([id number]) [address] [place] [address] URN MACROSCOPIC NURon 2024 BILIRUBIN JUNIOR MODERATE Abnormal NEG [facility] Comment on above: Performed By: #### 3 094-0, 29570-3, , 2028-06, E COMMERCE ARCHITECT, 2951- 2, 2777-1, 3084-1, 2730-8 #### [facility] ([id number]) [address], [address] [place] [address] #### CITACU #### [facility] ([id number]) [address] [place] [address] 62180 BLOOD/HGB JUNIOR Negative Normal NEG [facility] Comment on above: Performed By: #### 3 094-0, 13188-3, 0, 2028-06, E COMMERCE ARCHITECT, 2951- 2, 2777-1, 3084-1, 273-8 #### [facility] ([id number]) [address], [address] [place] [address] #### CITACU #### [facility] ([id number]) [address] [place] [address] 55136 GLUCOSE JUNIOR Negative Normal NEG [facility] Comment on above: Performed By: #### 3 094-0, 48070-0, 0, 2028-06, E COMMERCE ARCHITECT, 2951- 2, 2777-1, 3084-1, 273-8 #### [facility] ([id number]) [address] [facility], [address] [place] [address] #### CITACU #### [facility] ([id number]) [address] [place] [address] 38360 KETONES JUNIOR Trace Abnormal NEG [facility] Comment on above: Performed By: #### 3 094-0, 32540-2, 0, 2028-06, E COMMERCE ARCHITECT, 2951- 2, 2777-1, 3084-1, 2731-8 #### [facility] ([id number]) [address] [facility], [address] [place] [address] #### CITACU #### [facility] ([id number]) [address] [place] [address] 60793 LEUKOCYTE ESTERASE JUNIOR Negative Normal NEG [facility] Comment on above: Performed By: #### 3 094-0, 87780-4, 0, 2028-06, E COMMERCE ARCHITECT, 2951- 2, 2777-1, 3084-1, 2731-8 #### [facility] ([id number]) [address] [place] [address], [address] [place] [address] #### CITACU #### [facility] ([id number]) [address] [place] [address] 82671 NITRITE JUNIOR Negative Normal NEG [facility] Comment on above: Performed By: #### 3 094-0, 18011-9, 0, 2028-06, E COMMERCE ARCHITECT, 2951- 2, 2777-1, 3084-1, 2731-8 #### [facility] ([id number]) [address] [place] [address], [address] [place] [address] #### CITACU #### [facility] ([id number]) [address] [place] [address] 24974 PH JUNIOR 5.5 Normal 5.0-8.5 [facility] Comment on above: Performed By: #### 3 094-0, 83589-5, 0, 2028-06, E COMMERCE ARCHITECT, 2951- 2, 2777-1, 3084-1, 273-8 #### [facility] ([id number]) [address], [address] [place] [address] #### CITACU #### [facility] ([id number]) [address] [place] [address] 61268 PROTEIN JUNIOR 100 mg/dL Abnormal NEG [facility] Comment on above: Performed By: #### 3 094-0, 69057-1, , 2028-06, E COMMERCE ARCHITECT, 2951- 2, 2777-1, 3084-1, 2731-05 #### [facility] ([id number]) [address], [address] [place] [address] #### CITACU #### [facility] ([id number]) [address] [place] [address] 70029 SPECIFIC GRAVITY JUNIOR 1.025 Normal 1.003-1.035 [facility] Comment on above: Performed By: #### 3 094-0, 22537-2, , 2028-06, E COMMERCE ARCHITECT, 2951- 2, 2777-1, 3084-1, 2730-8 #### [facility] ([id number]) [address], [address] [place] [address] #### CITACU #### [facility] ([id number]) [address] [place] [address] 17330 UROBILINOGEN JUNIOR 0.2 eu/dL Normal <1.1 [facility] Comment on above: Performed By: #### 3 094-0, 09080-4, 0, 2028-06, E COMMERCE ARCHITECT, 2951- 2, 2777-1, 3084-1, 273-8 #### [facility] ([id number]) [address] [facility], [address] [place] [address] #### CITACU #### [facility] ([id number]) [address] [place] [address] aPTT Coag (PPP) [Time]on aPTT Coag (Bld) [Time] 32 s Normal 26-37 [facility] Comment on above: Result Comment: NEW REFERENCE RANGE Performed By: #### 3 094-0, 94463-9, 2075-0, 8-9, E COMMERCE ARCHITECT, 2951-2, 2777-1, 3084-1, 2731-8 #### [facility] ([id number]) [address] [place] [address], [address] [place] [address] #### CITACU #### [facility] ([id number]) [address] [place] [address] 6[address] 36on 01-08-[address] [facility] Orders Onlyon 01-02-2025 Orders Only [id number] Madyson Moore 1980 F Date Provider Department Center 01/02/2025 35258-PSGYUMIGDALIA MOE MP PAIN Medical [facility] Family History Problem Relation Age of Onset Brain cancer Mother Breast cancer Sister Kidney cancer Maternal Grandmother Prostate cancer Paternal Grandfather Cancer Father Cancer Sister Family Status - Relation Status Age at Mother Sister Maternal Grandmother Paternal Grandfather Father Sister [facility] Refillon 01-01-2025 Refill [id number] Madyson Moore 1980 F Date Provider Department Center 01/01/2025 170-RUKHSANA MILLER MP PAIN Medical [facility] Family History Problem Relation Age of Onset Brain cancer Mother Breast cancer Sister Kidney cancer Maternal Grandmother Prostate cancer Paternal Grandfather Cancer Father Cancer Sister Family Status - Relation Status Age at Mother Sister Maternal Grandmother Paternal Grandfather Father Sister Reason for Visit and Comments: Med Refill [130080] [facility] Follow-Upon 12-25-2024 Follow-Up [id number] Madyson Moore 1980 F Date Provider Department Center 12/25/2024 433-MONIQUE BURKETT MP ORTHO MPORTHO Family History Problem Relation Age of Onset Brain cancer Mother Breast cancer Sister Kidney cancer Maternal Grandmother Prostate cancer Paternal Grandfather Cancer Father Cancer Sister Family Status - Relation Status Age at Mother Sister Maternal Grandmother Paternal Grandfather Father Sister Level of Service:30065 HI OFFICE/OUTPATIENT ESTABLISHED MOD MDM 30 MIN () Reason for Visit and Comments: Edema [[id number]] - Hx l knee revision & TKA - States she took a fall when her knee gave out last week and when she fell she heard the loudest pop and her pain has been severe since Follow-up [320746] - Hx l knee revision & TKA - States she took a fall when her knee gave out last week and when she fell she heard the loudest pop and her pain has been severe since Pain [136] - Hx l knee revision & TKA - States she took a fall when her knee gave out last week and when she fell she heard the loudest pop and her pain has been severe since Normal [facility] 36on 12-19-[address] [facility] CBC AND AUTO DIFFon 12-08-19 25 ABSOLUTE BASOPHIL 0.0 X10E9/L Normal 0.0-0.2 [facility] Comment on above: Performed By: #### 3 094-0, 32354-3, , 2028-06, E COMMERCE ARCHITECT, 2951- 2, 2777-1, 3084-1, 2731-8 #### [facility] ([id number]) [address] [facility], [address] [place] [address] #### CITACU #### [facility] ([id number]) [address] [facility], [place] [address] ABSOLUTE NEUTROPHIL 2.6 X10E9/L Normal 1.5-6.6 [facility] Comment on above: Performed By: #### 3 094-0, 48980-9, 0, 2028-06, E COMMERCE ARCHITECT, 2951- 2, 2777-1, 3084-1, 2731-8 #### [facility] ([id number]) [address], [address] [place] [address] #### CITACU #### [facility] ([id number]) [address] [place] [address] 43456 Basophils/100 WBC (Bld) 0.3 % Normal [facility] Comment on above: Performed By: #### 3 094-0, 94487-5, , 2028-06, E COMMERCE ARCHITECT, 2951- 2, 2777-1, 3084-1, 8 #### [facility] ([id number]) [address], [address] [place] [address] #### CIT[place]U #### [facility] ([id number]) [address] [place] [address] 47567 Eosinophils (Bld) [#/Vol] 0.1 10*3/uL Normal 0.0-0.4 [facility] Comment on above: Performed By: #### 3 094-0, 87532-4, , 2028-06, E COMMERCE ARCHITECT, 2951- 2, 2777-1, 3084-1, 8 #### [facility] ([id number]) [address], [address] [place] [address] #### CITACU #### [facility] ([id number]) [address] [place] [address] 95821 Eosinophils/100 WBC (Bld) 1.6 % Normal [facility] Comment on above: Performed By: #### 3 094-0, 25644-4, 0, 2028-06, E COMMERCE ARCHITECT, 2951- 2, 2777-1, 3084-1, 2730-8 #### [facility] ([id number]) [address], [address] [place] [address] #### CIT[place]U #### [facility] ([id number]) [address] [place] [address] 95758 Erythrocyte distribution width (RBC) [Ratio] 16.0 % High 11.5-15.0 [facility] Comment on above: Performed By: #### 3 094-0, 05243-9, 2074-0, 2028-06, E COMMERCE ARCHITECT, 2951- 2, 2777-1, 3084-1, 2731-8 #### [facility] ([id number]) [address], [address] [place] [address] #### CIT[place]U #### [facility] ([id number]) [address] [place] [address] 60048 Hematocrit (Bld) [Volume fraction] 33.8 % Low 35-47 [facility] Comment on above: Performed By: #### 3 094-0, 42817-7, 0, 2028-06, E COMMERCE ARCHITECT, 2951- 2, 2777-1, 3084-1, 2731-8 #### [facility] ([id number]) [address], [address] [place] [address] #### CITACU #### [facility] ([id number]) [address] [place] [address] 99968 Hemoglobin (Bld) [Mass/Vol] 10.9 g/dL Low 11.7-15.5 [facility] Comment on above: Performed By: #### 3 094-0, 81252-4, 2074-0, 2028-06, E COMMERCE ARCHITECT, 2951- 2, 2777-1, 3084-1, 2731-8 #### [facility] ([id number]) [address], [address] [place] [address] #### CIT[place]U #### [facility] ([id number]) [address] [place] [address] 87333 Lymphocytes (Bld) [#/Vol] 2.0 10*3/uL Normal 1.0-3.5 [facility] Comment on above: Performed By: #### 3 094-0, 96729-7, 0, 2028-06, E COMMERCE ARCHITECT, 2951- 2, 2777-1, 3084-1, 2731-8 #### [facility] ([id number]) [address], [address] [place] [address] #### CITACU #### [facility] ([id number]) [address] [place] [address] 01616 Lymphocytes/100 WBC (Bld) 39.6 % Normal [facility] Comment on above: Performed By: #### 3 094-0, , , 2028-06, E COMMERCE ARCHITECT, 2951- 2, 2777-1, 3084-1, 2731-8 #### [facility] ([id number]) [address], [address] [place] [address] #### CITACU #### [facility] ([id number]) [address] [place] [address] 34258 MCH (RBC) [Entitic mass] 24.8 pg Low 27-34 [facility] Comment on above: Performed By: #### 3 094-0, 45222-0, , 2028-06, E COMMERCE ARCHITECT, 2951- 2, 2777-1, 3084-1, 2731-8 #### [facility] ([id number]) [address], [address] [place] [address] #### CITACU #### [facility] ([id number]) [address] [place] [address] 52472 MCHC (RBC) [Mass/Vol] 32.3 g/dL Normal 32-36 [facility] Comment on above: Performed By: #### 3 094-0, 56997-2, 2074-0, 2028-06, E COMMERCE ARCHITECT, 2951- 2, 2777-1, 3084-1, 273-8 #### [facility] ([id number]) [address] [facility], [address] [place] [address] #### CITACU #### [facility] ([id number]) [address] [place] [address] 14233 MCV (RBC) [Entitic vol] 77 fL Low 80-100 [facility] Comment on above: Performed By: #### 3 094-0, 63991-6, 0, 2028-06, E COMMERCE ARCHITECT, 2951- 2, 2777-1, 3084-1, 273-8 #### [facility] ([id number]) [address] [facility], [address] [place] [address] #### CITACU #### [facility] ([id number]) [address] [place] [address] 85355 Monocytes (Bld) [#/Vol] 0.4 10*3/uL Normal 0-0.9 [facility] Comment on above: Performed By: #### 3 094-0, 85161-1, 0, 2028-06, E COMMERCE ARCHITECT, 2951- 2, 2777-1, 3084-1, 273-8 #### [facility] ([id number]) [address] [facility], [address] [place] [address] #### CITACU #### [facility] ([id number]) [address] [place] [address] 57015 Monocytes/100 WBC (Bld) 6.9 % Normal [facility] Comment on above: Performed By: #### 3 094-0, 64571-1, 2074-0, 2028-06, E COMMERCE ARCHITECT, 2951- 2, 2777-1, 3084-1, 273-8 #### [facility] ([id number]) [address], [address] [place] [address] #### CITACU #### [facility] ([id number]) [address] [place] [address] 81186 Neutrophils/100 WBC (Bld) 51.6 % Normal [facility] Comment on above: Performed By: #### 3 094-0, 13210-9, 0, 2028-06, E COMMERCE ARCHITECT, 2951- 2, 2777-1, 3084-1, 2731-8 #### [facility] ([id number]) [address], [address] [place] [address] #### CITACU #### [facility] ([id number]) [address] [place] [address] 98531 Platelet mean volume (Bld) [Entitic vol] 8.0 fL Normal 7-12 [facility] Comment on above: Performed By: #### 3 094-0, 39500-2, 0, 2028-06, E COMMERCE ARCHITECT, 2951- 2, 2777-1, 3084-1, 2731-8 #### [facility] ([id number]) [address], [address] [place] [address] #### CITACU #### [facility] ([id number]) [address] [place] [address] 12263 Platelets (Bld) [#/Vol] 275 10*3/uL Normal 150-450 [facility] Comment on above: Performed By: #### 3 094-0, 65317-1, 0, 2028-06, E COMMERCE ARCHITECT, 2951- 2, 2777-1, 3084-1, 2731-8 #### [facility] ([id number]) [address], [address] [place] [address] #### CITACU #### [facility] ([id number]) [address] [place] [address] 63871 RBC COUNT 4.40 X10E12/L Normal 3.80-5.20 [facility] Comment on above: Performed By: #### 3 094-0, 14610-3, 0, 2028-06, E COMMERCE ARCHITECT, 2951- 2, 2777-1, 3084-1, 2731-8 #### [facility] ([id number]) [address] [facility] [facility], [address] [place] [address] #### CITACU #### [facility] ([id number]) [address] [place] [address] 16150 WBC (Bld) [#/Vol] 5.1 10*3/uL Normal 4.0-11.0 [facility] Comment on above: Performed By: #### 3 094-0, 16881-5, , 2028-06, E COMMERCE ARCHITECT, 2951- 2, 2777-1, 3084-1, 2731-8 #### [facility] ([id number]) [address] [facility], [address] [place] [address] #### CITACU #### [facility] ([id number]) [address] [place] [address] 42900 COMPREHENSIVE METABOLIC PANE Nico 12-08-2024 Albumin [Mass/Vol] 4.2 g/dL Normal 3.2-5.3 [facility] Comment on above: Performed By: #### 3 094-0, 25400-8, 0, 2028-06, E COMMERCE ARCHITECT, 2951- 2, 2777-1, 3084-1, 2731-8 #### [facility] ([id number]) [address] [place] [address], [address] [place] [address] #### CITACU #### [facility] ([id number]) [address] [place] [address] 88109 ALP [Catalytic activity/Vol] 112 U/L Normal 39-130 [facility] Comment on above: Performed By: #### 3 094-0, 42633-5, , 2028-06, E COMMERCE ARCHITECT, 2951- 2, 2777-1, 3084-1, 2731-8 #### [facility] ([id number]) [address], [address] [place] [address] #### CITACU #### [facility] ([id number]) [address] [place] [address] 50004 ALT [Catalytic activity/Vol] 13 U/L Normal 0-31 [facility] Comment on above: Performed By: #### 3 094-0, 44442-8, , 2028-06, E COMMERCE ARCHITECT, 2951- 2, 2777-1, 3084-1, 2731-8 #### [facility] ([id number]) [address] [facility], [address] [place] [address] #### CITACU #### [facility] ([id number]) [address] [place] [address] 39749 Anion gap [Moles/Vol] 10 mmol/L Normal 5-15 [facility] Comment on above: Performed By: #### 3 094-0, 33326-5, , 2028-06, E COMMERCE ARCHITECT, 2951- 2, 2777-1, 3084-1, 2731-8 #### [facility] ([id number]) [address] [place] [address] #### CITACU #### [facility] ([id number]) [address] [place] [address] 58212 AST [Catalytic activity/Vol] 18 U/L Normal 0-41 [facility] Comment on above: Performed By: #### 3 094-0, 33287-4, , 2028-9, E COMMERCE ARCHITECT, 2951- 2, 2777-1, 3084-1, 2731-8 #### [facility] ([id number]) [address] [place] [address] #### CITACU #### [facility] ([id number]) [address] [place] [address] 45319 Bilirubin [Mass/Vol] 0.5 mg/dL Normal 0.3-1.2 [facility] Comment on above: Performed By: #### 3 094-0, 95453-6, 0, 2028-06, E COMMERCE ARCHITECT, 2951- 2, 2777-1, 3084-1, 273-8 #### [facility] ([id number]) [address], [address] [place] [address] #### CITACU #### [facility] ([id number]) [address] [place] [address] 33599 Calcium [Mass/Vol] 8.9 mg/dL Normal 8.5-10.5 [facility] Comment on above: Performed By: #### 3 094-0, 89901-3, , 2028-06, E COMMERCE ARCHITECT, 2951- 2, 2777-1, 3084-1, 273-8 #### [facility] ([id number]) [address] [place] [address] #### CITACU #### [facility] ([id number]) [address] [place] [address] 91260 Chloride [Moles/Vol] 103 mmol/L Normal 98-109 [facility] Comment on above: Performed By: #### 3 094-0, 60937-3, 0, 2028-06, E COMMERCE ARCHITECT, 2951- 2, 2777-1, 3084-1, 2731-8 #### [facility] ([id number]) [address], [address] [place] [address] #### CITACU #### [facility] ([id number]) [address] [place] [address] CO2 [Moles/Vol] 27 mmol/L Normal 22-32 [facility] Comment on above: Performed By: #### 3 094-0, 47308-8, 0, 2028-06, E COMMERCE ARCHITECT, 2951- 2, 2777-1, 3084-1, 2731-8 #### [facility] ([id number]) [address], [address] [place] [address] #### [place]U #### [facility] ([id number]) [address] [place] [address]228 Creatinine [Mass/Vol] 0.69 mg/dL Normal 0.40-1.00 [facility] Comment on above: Result Comment: METH OD TRACEABLE TO IDMS STANDARD Performed By: #### 3 094-0, 62101-6, 0, 2028-06, E COMMERCE ARCHITECT, 2951-2, 2777-1, 3084-1, 2731-8 #### [facility] ([id number]) [address], [address] [place] [address] #### [facility] #### [facility] ([id number]) [address] [place] [address]97 eGFR (CKD-EPI) NON-RACE DEPENDENT >90 Normal >59 [facility] Comment on above: Result Comment: Reported eGFR is based on the CKD-EPI 2020 equation that does not use a race coefficient. Performed By: #### 3 094-0, 56006-0, 2074-0, 2028-06, E COMMERCE ARCHITECT, 2951-2, 2777-1, 3084-1, 2731-8 #### [facility] ([id number]) [address], [address] [place] [address] #### [place]U #### [facility] ([id number]) [address] [place] [address]180 Glucose [Mass/Vol] 97 mg/dL Normal 65-99 [facility] Comment on above: Performed By: #### 3 094-0, 92772-6, 2074-0, 2028-06, E COMMERCE ARCHITECT, 2951- 2, 2777-1, 3084-1, 2731-8 #### [facility] ([id number]) [address], [address] [place] [address] #### [place]U #### [facility] ([id number]) [address] [place] [address] Potassium [Moles/Vol] 4.0 mmol/L Normal 3.5-5.0 [facility] Comment on above: Performed By: #### 3 094-0, 43471-1, 0, 2028-06, E COMMERCE ARCHITECT, 2951- 2, 2777-1, 3084-1, 273-8 #### [facility] ([id number]) [address], [address] [place] [address] #### [place]U #### [facility] ([id number]) [address] [place] [address]65[address] Protein [Mass/Vol] 7.3 g/dL Normal 6.0-8.0 [facility] Comment on above: Performed By: #### 3 094-0, 16647-7, 2074-0, 2028-06, E COMMERCE ARCHITECT, 2951- 2, 2777-1, 3084-1, 2731-8 #### [facility] ([id number]) [address], [address] [place] [address] #### [place]U #### [facility] ([id number]) [address] [place] [address] Sodium [Moles/Vol] 140 mmol/L Normal 134-146 [facility] [facility] Comment on above: Performed By: #### 3 094-0, 41321-0, , 2028-06, E COMMERCE ARCHITECT, 2951- 2, 2777-1, 3084-1, 273-8 #### [facility] ([id number]) [address], [address] [place] [address] #### CITACU #### [facility] ([id number]) [address] [place] [address] 62440 Urea nitrogen [Mass/Vol] 13 mg/dL Normal 5-23 [facility] Comment on above: Performed By: #### 3 094-0, 57315-9, , 2028-06, E COMMERCE ARCHITECT, 2951- 2, 2777-1, 3084-1, 273-8 #### [facility] ([id number]) [address], [address] [place] [address] #### CITACU #### [facility] ([id number]) [address] [place] [address] 99158 URN MACROSCOPIC NURon 2024 BILIRUBIN JUNIOR Negative Normal NEG [facility] Comment on above: Performed By: #### 3 094-0, 43106-1, , 2028-06, E COMMERCE ARCHITECT, 2951- 2, 2777-1, 3084-1, 273-8 #### [facility] ([id number]) [address], [address] [place] [address] #### CITACU #### [facility] ([id number]) [address] [place] [address] 12956 BLOOD/HGB JUNIOR Large Abnormal NEG [facility] Comment on above: Performed By: #### 3 094-0, 36409-4, , 2028-06, E COMMERCE ARCHITECT, 2951- 2, 2777-1, 3084-1, 2731-8 #### [facility] ([id number]) [address], [address] [place] [address] #### CITACU #### [facility] ([id number]) [address] [place] [address] 65491 GLUCOSE JUNIOR Negative Normal NEG [facility] Comment on above: Performed By: #### 3 094-0, 92608-4, 2074-0, 2028-06, E COMMERCE ARCHITECT, 2951- 2, 2777-1, 3084-1, 2731-8 #### [facility] ([id number]) [address], [address] [place] [address] #### CITACU #### [facility] ([id number]) [address] [place] [address] 78924 KETONES JUNIOR Trace Abnormal NEG [facility] Comment on above: Performed By: #### 3 094-0, 78852-9, 2074-0, 2028-06, E COMMERCE ARCHITECT, 2951- 2, 2777-1, 3084-1, 2731-8 #### [facility] ([id number]) [address], [address] [place] [address] #### CITACU #### [facility] ([id number]) [address] [place] [address] 98435 LEUKOCYTE ESTERASE JUNIOR Negative Normal NEG [facility] Comment on above: Performed By: #### 3 094-0, 09924-5, 2074-0, 9, E COMMERCE ARCHITECT, 2951- 2, 2777-1, 3084-1, 2731-8 #### [facility] ([id number]) [address], [address] [place] [address] #### CITACU #### [facility] ([id number]) [address] [place] [address] 19070 NITRITE JUNIOR Negative Normal NEG [facility] Comment on above: Performed By: #### 3 094-0, 99416-3, , 2028-06, E COMMERCE ARCHITECT, 2951- 2, 2777-1, 3084-1, 2731-8 #### [facility] ([id number]) [address], [address] [place] [address] #### CITACU #### [facility] ([id number]) [address] [place] [address] 59717 PH JUNIOR 6.0 Normal 5.0-8.5 [facility] Comment on above: Performed By: #### 3 094-0, 30455-4, , 2028-06, E COMMERCE ARCHITECT, 2951- 2, 2777-1, 3084-1, 2731-8 #### [facility] ([id number]) [address], [address] [place] [address] #### CITACU #### [facility] ([id number]) [address] [place] [address] 45306 PROTEIN JUNIOR 30 mg/dL Abnormal NEG [facility] Comment on above: Performed By: #### 3 094-0, 60116-4, , 2028-06, E COMMERCE ARCHITECT, 2951- 2, 2777-1, 3084-1, 2731-8 #### [facility] ([id number]) [address], [address] [place] [address] #### CITACU #### [facility] ([id number]) [address] [place] [address] 17405 SPECIFIC GRAVITY JUNIOR >=1.030 Normal 1.003-1.035 [facility] Comment on above: Performed By: #### 3 094-0, 43751-9, 0, 2028-06, E COMMERCE ARCHITECT, 2951- 2, 2777-1, 3084-1, 2731-8 #### [facility] ([id number]) [address], [address] [place] [address] #### CITACU #### [facility] ([id number]) [address] [facility], [place] [address] UROBILINOGEN JUNIOR 1.0 eu/dL Normal <1.1 [facility] Comment on above: Performed By: #### 3 094-0, 28052-4, 5-0, 2027-9, E COMMERCE ARCHITECT, 2951- 2, 2777-1, 3084-1, 2731-8 #### [facility] ([id number]) [address], [address] [place] [address] #### CITACU #### [facility] ([id number]) [address] [facility], [place] [address] XR ABDOMEN AP 1 VWon 025 XR [...] Jaxon Merrill on 12/08/2024 6:44 PM Normal [facility] HPon 12-05-2024 Pain Medicine Medical [address] [address] CC: No chief complaint on file. SUBJECTIVE: [...] Cancer Father Tye Shearn Cancer Sister January [facility] Physical Exam Alert and oriented Non labored [...] this note were generated using voice recognition M*Modal dictation software. Although every effort was made to ensure the accuracy of this automated pump machine operator, some errors in pump machine operator may have occurred. Normal [facility] NURSNOTEon 12-05-2024 NURSNOTE Interventional Pain Management Nursing [...] Frequency: Constant/continuous Pain Interventions: Medication (See MAR) [facility] Orders Onlyon 12-05-2024 Orders Only [id number] Teresa,Modestoat ma 1980 F Date Provider Department Center 12/05/2024 RUKHSANA ESPINOZA MP PAIN Medical [facility]avi Family History Problem Relation Age of Onset Brain cancer Mother Breast cancer Sister Kidney cancer Maternal Grandmother Prostate cancer Paternal Grandfather Cancer Father Cancer Sister Family Status - Relation Status Age at Mother Sister Maternal Grandmother Paternal Grandfather Father Sister Normal [facility] Orders Onlyon 12-04-2024 Orders Only [id number] Teresa,Tabat ma 1980 F Date Provider Department Center 12/04/2024 [id number] KOTHARI MP PAIN Medical [facility]avi Family History Problem Relation Age of Onset Brain cancer Mother Breast cancer Sister Kidney cancer Maternal Grandmother Prostate cancer Paternal Grandfather Cancer Father Cancer Sister Family Status - Relation Status Age at Mother Sister Maternal Grandmother Paternal Grandfather Father Sister [facility] Refillon 12-04-2024 Refill [id number] Teresa,Tabat ma 1980 F Date Provider Department Center 12/04/2024 RUKHSANA ESPINOZA MP PAIN Medical Pavi Family History Problem Relation Age of Onset Brain cancer Mother Breast cancer Sister Kidney cancer Maternal Grandmother Prostate cancer Paternal Grandfather Cancer Father Cancer Sister Family Status - Relation Status Age at Mother Sister Maternal Grandmother Paternal Grandfather Father Sister Reason for Visit and Comments: Med Refill [[id number]] [facility] Reminderson 01-13-2025 Reminders Reminders From: Maggie Vargas To: EU [...] yr f/u w/ KUB w/ CHERI. Normal [facility] Follow-Upon 10-19-2024 Follow-Up [id number] Madyson Moore 1980 Date Provider Department Center 10/19/2024 RUKHSANA ESPINOZA MP PAIN Medical Pavi Family History Problem Relation Age of Onset Brain cancer Mother Breast cancer Sister Kidney cancer Maternal Grandmother Prostate cancer Paternal Grandfather Cancer Father Cancer Sister Family Status - Relation Status Age at Mother Sister Maternal Grandmother Paternal Grandfather Father Sister Level of Service:85017 HI OFFICE/OUTPATIENT ESTABLISHED LOW MDM 20 MIN Reason for Visit and Comments: Med Management [[id number]] - No bottles for pill count Patient educated on bringing bottles to every visit Follow-up [[id number]] - Left knee pain Normal [facility] Orders Onlyon 10-18-2024 Orders Only [id number] Madyson Moore 1980 Provider Department Center 10/18/2024 [id number], HISTORICAL MP PAIN Medical [facility]avi Family History Problem Relation Age of Onset Brain cancer Mother Breast cancer Sister Kidney cancer Maternal Grandmother Prostate cancer Paternal Grandfather Cancer Father Cancer Sister Family Status - Relation Status Age at Mother Sister Maternal Grandmother Paternal Grandfather Father Sister Normal [facility] Refillon 10-07-2024 Refill [id number] Madyson Moore 1980 Date Provider Department Center 10/07/2024 RUKHSANA ESPINOZA MP PAIN Medical Pavi Family History Problem Relation Age of Onset Brain cancer Mother Breast cancer Sister Kidney cancer Maternal Grandmother Prostate cancer Paternal Grandfather Cancer Father Cancer Sister Family Status - Relation Status Age at Mother Sister Maternal Grandmother Paternal Grandfather Father Sister Reason for Visit and Comments: Med Refill [[id number]] Normal [facility] Orders Onlyon 09-12-2024 Orders Only [id number] Modesto Moorenicole ma 1980 F Date Provider Department Center 09/12/2024 RUKHSANA ESPINOZA MP PAIN Medical Pavi Family History Problem Relation Age of Onset Brain cancer Mother Breast cancer Sister Kidney cancer Maternal Grandmother Prostate cancer Paternal Grandfather Cancer Father Cancer Sister Family Status - Relation Status Age at Mother Sister Maternal Grandmother Paternal Grandfather Father Sister Normal [facility] Refillon 08-10-2024 Refill [id number] LudyModesto tilleynicole ma 1980 F Date Provider Department Center 08/10/2024 RUKHSANA ESPINOZA MP PAIN Medical Pavi Family History Problem Relation Age of Onset Brain cancer Mother Breast cancer Sister Kidney cancer Maternal Grandmother Prostate cancer Paternal Grandfather Cancer Father Cancer Sister Family Status - Relation Status Age at Mother Sister Maternal Grandmother Paternal Grandfather Father Sister Reason for Visit and Comments: Med Refill [[id number]] Normal [facility] CBC AND AUTO DIFFon 08-09-20 24 ABSOLUTE BASOPHIL 0.0 X10E9/L Normal 0.0-0.2 [facility] Comment on above: Performed By: #### 3 094-0, 90416-0, , 2028-06, E COMMERCE ARCHITECT, 2951- 2, 2777-1, 3084-1, 2731-8 #### [facility] ([id number]) [address] [place] [address], [address] [place] [address] #### CITACU #### [facility] ([id number]) [address] [place] [address], [place] [address] ABSOLUTE NEUTROPHIL 2.5 X10E9/L Normal 1.5-6.6 [facility] Comment on above: Performed By: #### 3 094-0, 21357-7, , 2028-06, E COMMERCE ARCHITECT, 2951- 2, 2777-1, 3084-1, 273-8 #### [facility] ([id number]) [address], [address] [place] [address] #### CITACU #### [facility] ([id number]) [address] [place] [address] 40980 Basophils/100 WBC (Bld) 0.4 % Normal [facility] Comment on above: Performed By: #### 3 094-0, 97986-2, , 2028-06, E COMMERCE ARCHITECT, 2951- 2, 2777-1, 3084-1, 2730-8 #### [facility] ([id number]) [address], [address] [place] [address] #### CITACU #### [facility] ([id number]) [address] [place] [address] 00062 Eosinophils (Bld) [#/Vol] 0.1 10*3/uL Normal 0.0-0.4 [facility] Comment on above: Performed By: #### 3 094-0, 86582-1, , 2028-06, E COMMERCE ARCHITECT, 2951- 2, 2777-1, 3084-1, 8 #### [facility] ([id number]) [address], [address] [place] [address] #### CITACU #### [facility] ([id number]) [address] [place] [address] 66863 Eosinophils/100 WBC (Bld) 1.3 % Normal [facility] Comment on above: Performed By: #### 3 094-0, 16250-6, 0, 2028-06, E COMMERCE ARCHITECT, 2951- 2, 2777-1, 3084-1, 273-8 #### [facility] ([id number]) [address], [address] [place] [address] #### CITACU #### [facility] ([id number]) [address] [place] [address] 41322 Erythrocyte distribution width (RBC) [Ratio] 14.2 % Normal 11.5-15.0 [facility] Comment on above: Performed By: #### 3 094-0, 42039-0, 2074-0, 2028-06, E COMMERCE ARCHITECT, 2951- 2, 2777-1, 3084-1, 2731-8 #### [facility] ([id number]) [address], [address] [place] [address] #### CITACU #### [facility] ([id number]) [address] [place] [address] 70917 Hematocrit (Bld) [Volume fraction] 34.3 % Low 35-47 [facility] Comment on above: Performed By: #### 3 094-0, 84640-1, 2074-0, 2028-06, E COMMERCE ARCHITECT, 2951- 2, 2777-1, 3084-1, 2731-8 #### [facility] ([id number]) [address], [address] [place] [address] #### CITACU #### [facility] ([id number]) [address] [place] [address] 95523 Hemoglobin (Bld) [Mass/Vol] 11.3 g/dL Low 11.7-15.5 [facility] Comment on above: Performed By: #### 3 094-0, 64522-7, 2074-0, 2028-06, E COMMERCE ARCHITECT, 2951- 2, 2777-1, 3084-1, 2731-8 #### [facility] ([id number]) [address], [address] [place] [address] #### CITACU #### [facility] ([id number]) [address] [place] [address] 73473 Lymphocytes (Bld) [#/Vol] 2.6 10*3/uL Normal 1.0-3.5 [facility] Comment on above: Performed By: #### 3 094-0, 28378-0, , 2028-06, E COMMERCE ARCHITECT, 2951- 2, 2777-1, 3084-1, 2731-8 #### [facility] ([id number]) [address], [address] [place] [address] #### CITACU #### [facility] ([id number]) [address] [place] [address] 37685 Lymphocytes/100 WBC (Bld) 45.9 % Normal [facility] Comment on above: Performed By: #### 3 094-0, , , 2028-06, E COMMERCE ARCHITECT, 2951- 2, 2777-1, 3084-1, 2731-8 #### [facility] ([id number]) [address], [address] [place] [address] #### CITACU #### [facility] ([id number]) [address] [place] [address] 67960 MCH (RBC) [Entitic mass] 27.4 pg Normal 27-34 [facility] Comment on above: Performed By: #### 3 094-0, 68004-2, , 2028-06, E COMMERCE ARCHITECT, 2951- 2, 2777-1, 3084-1, 2731-8 #### [facility] ([id number]) [address], [address] [place] [address] #### CITACU #### [facility] ([id number]) [address] [place] [address] 60150 MCHC (RBC) [Mass/Vol] 33.0 g/dL Normal 32-36 [facility] Comment on above: Performed By: #### 3 094-0, 41588-9, 2074-0, 2028-06, E COMMERCE ARCHITECT, 2951- 2, 2777-1, 3084-1, 273-8 #### [facility] ([id number]) [address], [address] [place] [address] #### CITACU #### [facility] ([id number]) [address] [place] [address] 54576 MCV (RBC) [Entitic vol] 83 fL Normal 80-100 [facility] Comment on above: Performed By: #### 3 094-0, 76977-2, 0, 2028-06, E COMMERCE ARCHITECT, 2951- 2, 2777-1, 3084-1, 2730- #### [facility] ([id number]) [address], [address] [place] [address] #### CITACU #### [facility] ([id number]) [address] [place] [address] 49511 Monocytes (Bld) [#/Vol] 0.4 10*3/uL Normal 0-0.9 [facility] Comment on above: Performed By: #### 3 094-0, 78198-5, 0, 2028-06, E COMMERCE ARCHITECT, 2951- 2, 2777-1, 3084-1, 273-8 #### [facility] ([id number]) [address], [address] [place] [address] #### CITACU #### [facility] ([id number]) [address] [place] [address] 41479 Monocytes/100 WBC (Bld) 6.8 % Normal [facility] Comment on above: Performed By: #### 3 094-0, 27106-7, 2074-0, 2028-06, E COMMERCE ARCHITECT, 2951- 2, 2777-1, 3084-1, 273-8 #### [facility] ([id number]) [address], [address] [place] [address] #### CITACU #### [facility] ([id number]) [address] [place] [address] 82136 Neutrophils/100 WBC (Bld) 45.6 % Normal [facility] Comment on above: Performed By: #### 3 094-0, 11393-7, 0, 2028-06, E COMMERCE ARCHITECT, 2951- 2, 2777-1, 3084-1, 2731-8 #### [facility] ([id number]) [address], [address] [place] [address] #### CITACU #### [facility] ([id number]) [address] [place] [address] 16996 Platelet mean volume (Bld) [Entitic vol] 7.3 fL Normal 7-12 [facility] Comment on above: Performed By: #### 3 094-0, 51445-2, , 2028-06, E COMMERCE ARCHITECT, 2951- 2, 2777-1, 3084-1, 2731-8 #### [facility] ([id number]) [address], [address] [place] [address] #### CITACU #### [facility] ([id number]) [address] [place] [address] 12176 Platelets (Bld) [#/Vol] 253 10*3/uL Normal 150-450 [facility] Comment on above: Performed By: #### 3 094-0, 19175-8, 0, 2028-06, E COMMERCE ARCHITECT, 2951- 2, 2777-1, 3084-1, 2731-8 #### [facility] ([id number]) [address], [address] [place] [address] #### CITACU #### [facility] ([id number]) [address] [place] [address] 24945 RBC COUNT 4.12 X10E12/L Normal 3.80-5.20 [facility] Comment on above: Performed By: #### 3 094-0, 66304-7, 0, 2028-06, E COMMERCE ARCHITECT, 2951- 2, 2777-1, 3084-1, 2731-8 #### [facility] ([id number]) [address], [address] [place] [address] #### CITACU #### [facility] ([id number]) [address] [place] [address] 61042 WBC (Bld) [#/Vol] 5.6 10*3/uL Normal 4.0-11.0 [facility] Comment on above: Performed By: #### 3 094-0, 23770-6, , 2028-06, E COMMERCE ARCHITECT, 2951- 2, 2777-1, 3084-1, 2731-8 #### [facility] ([id number]) [address] [facility], [address] [place] [address] #### CITACU #### [facility] ([id number]) [address] [place] [address] 27348 COMPREHENSIVE METABOLIC PANE Nico 08-09-2024 Albumin [Mass/Vol] 4.3 g/dL Normal 3.2-5.3 [facility] Comment on above: Performed By: #### 3 094-0, 64113-4, 0, 2028-06, E COMMERCE ARCHITECT, 2951- 2, 2777-1, 3084-1, 2731-8 #### [facility] ([id number]) [address] [facility], [address] [place] [address] #### CITACU #### [facility] ([id number]) [address] [place] [address] 85103 ALP [Catalytic activity/Vol] 93 U/L Normal 39-130 [facility] Comment on above: Performed By: #### 3 094-0, 53317-1, , 2028-06, E COMMERCE ARCHITECT, 2951- 2, 2777-1, 3084-1, 2731-8 #### [facility] ([id number]) [address], [address] [place] [address] #### CITACU #### [facility] ([id number]) [address] [place] [address] 61019 ALT [Catalytic activity/Vol] 14 U/L Normal 0-31 [facility] Comment on above: Performed By: #### 3 094-0, 88006-6, , 2028-06, E COMMERCE ARCHITECT, 2951- 2, 2777-1, 3084-1, 2731-8 #### [facility] ([id number]) [address], [address] [place] [address] #### CITACU #### [facility] ([id number]) [address] [place] [address] 03181 Anion gap [Moles/Vol] 8 mmol/L Normal 5-15 [facility] Comment on above: Performed By: #### 3 094-0, 71547-8, , 2028-06, E COMMERCE ARCHITECT, 2951- 2, 2777-1, 3084-1, 2731-8 #### [facility] ([id number]) [address], [address] [place] [address] #### CITACU #### [facility] ([id number]) [address] [place] [address] 41527 AST [Catalytic activity/Vol] 14 U/L Normal 0-41 [facility] Comment on above: Performed By: #### 3 094-0, 27970-5, , 2028-06, E COMMERCE ARCHITECT, 2951- 2, 2777-1, 3084-1, 2731-8 #### [facility] ([id number]) [address], [address] [place] [address] #### CITACU #### [facility] ([id number]) [address] [place] [address] 14768 Bilirubin [Mass/Vol] 0.3 mg/dL Normal 0.3-1.2 [facility] Comment on above: Performed By: #### 3 094-0, 49056-3, 0, 2028-06, E COMMERCE ARCHITECT, 2951- 2, 2777-1, 3084-1, 273-8 #### [facility] ([id number]) [address], [address] [place] [address] #### CITACU #### [facility] ([id number]) [address] [place] [address] 88528 Calcium [Mass/Vol] 8.8 mg/dL Normal 8.5-10.5 [facility] Comment on above: Performed By: #### 3 094-0, 63085-3, , 2028-06, E COMMERCE ARCHITECT, 2951- 2, 2777-1, 3084-1, 273-8 #### [facility] ([id number]) [address], [address] [place] [address] #### CITACU #### [facility] ([id number]) [address] [place] [address] 93972 Chloride [Moles/Vol] 105 mmol/L Normal 98-109 [facility] Comment on above: Performed By: #### 3 094-0, 68989-4, 0, 2028-06, E COMMERCE ARCHITECT, 2951- 2, 2777-1, 3084-1, 2731-8 #### [facility] ([id number]) [address], [address] [place] [address] #### CITACU #### [facility] ([id number]) [address] [place] [address] 925[address] CO2 [Moles/Vol] 26 mmol/L Normal 22-32 [facility] Comment on above: Performed By: #### 3 094-0, 56536-0, 0, 2028-06, E COMMERCE ARCHITECT, 2951- 2, 2777-1, 3084-1, 2731-8 #### [facility] ([id number]) [address], [address] [place] [address] #### [place]U #### [facility] ([id number]) [address] [place] [address] Creatinine [Mass/Vol] 0.66 mg/dL Normal 0.40-1.00 [facility] Comment on above: Result Comment: METH OD TRACEABLE TO IDMS STANDARD Performed By: #### 3 094-0, 74320-4, 0, 2028-06, E COMMERCE ARCHITECT, 2951-2, 2777-1, 3084-1, 2731-8 #### [facility] ([id number]) [address], [address] [place] [address] #### [place]U #### [facility] ([id number]) [address] [place] [address] eGFR (CKD-EPI) NON-RACE DEPENDENT >90 Normal >59 [facility] Comment on above: Result Comment: Reported eGFR is based on the CKD-EPI 2020 equation that does not use a race coefficient. Performed By: #### 3 094-0, 09325-7, 2074-0, 2028-06, E COMMERCE ARCHITECT, 2951-2, 2777-1, 3084-1, 2731-8 #### [facility] ([id number]) [address], [address] [place] [address] #### [place]U #### [facility] ([id number]) [address] [place] [address] Glucose [Mass/Vol] 100 mg/dL High 65-99 [facility] Comment on above: Performed By: #### 3 094-0, 44068-8, 0, 2028-06, E COMMERCE ARCHITECT, 2951- 2, 2777-1, 3084-1, 2731-8 #### [facility] ([id number]) [address], [address] [place] [address] #### [place]U #### [facility] ([id number]) [address] [place] [address] Potassium [Moles/Vol] 3.8 mmol/L Normal 3.5-5.0 [facility] Comment on above: Performed By: #### 3 094-0, 79933-6, 0, 2028-06, E COMMERCE ARCHITECT, 2951- 2, 2777-1, 3084-1, 273-8 #### [facility] ([id number]) [address], [address] [place] [address] #### CITACU #### [facility] ([id number]) [address] [place] [address] 37767 Protein [Mass/Vol] 7.2 g/dL Normal 6.0-8.0 [facility] Comment on above: Performed By: #### 3 094-0, 29405-6, 0, 2028-06, E COMMERCE ARCHITECT, 2951- 2, 2777-1, 3084-1, 273-8 #### [facility] ([id number]) [address], [address] [place] [address] #### CITACU #### [facility] ([id number]) [address] [place] [address]81 Sodium [Moles/Vol] 139 mmol/L Normal 134-146 [facility] Comment on above: Performed By: #### 3 094-0, 00210-8, 2074-0, 2028-06, E COMMERCE ARCHITECT, 2951- 2, 2777-1, 3084-1, 2731-8 #### [facility] ([id number]) [address], [address] [place] [address] #### CITACU #### [facility] ([id number]) [address] [place] [address] Urea nitrogen [Mass/Vol] 18 mg/dL Normal 5-23 [facility] Comment on above: Performed By: #### 3 094-0, 17164-4, 0, 2028-06, E COMMERCE ARCHITECT, 2951- 2, 2777-1, 3084-1, 2731-8 #### [facility] ([id number]) [address], [address] [place] [address] #### CITACU #### [facility] ([id number]) [address] [place] [address] ABDOMEN AND PELVIS WO CON Ton [...] Gates MD on 08/09/2024 2:08 AM Normal [facility] URN MACROSCOPIC NURon 2023 BILIRUBIN JUNIOR Negative Normal NEG [facility] Comment on above: Performed By: #### 3 094-0, 35453-4, 0, 2028-06, E COMMERCE ARCHITECT, 2951- 2, 2777-1, 3084-1, 273-8 #### [facility] ([id number]) [address] [place] [address], [address] [place] [address] #### CITACU #### [facility] ([id number]) [address] [place] [address], [facility] [place] [place] [address] BLOOD/HGB JUNIOR Large Abnormal NEG [facility] Comment on above: Performed By: #### 3 094-0, 42939-5, 0, 2028-06, E COMMERCE ARCHITECT, 2951- 2, 2777-1, 3084-1, 2731-8 #### [facility] ([id number]) [address] [place] [address], [address] [place] [address] #### CITACU #### [facility] ([id number]) [address] [place] [address]205 GLUCOSE JUNIOR Negative Normal NEG [facility] Comment on above: Performed By: #### 3 094-0, 81436-0, 0, 2028-06, E COMMERCE ARCHITECT, 2951- 2, 2777-1, 3084-1, 2731-8 #### [facility] ([id number]) [address], [address] [place] [address] #### CITACU #### [facility] ([id number]) [address] [place] [address] KETONES JUNIOR Negative Normal NEG [facility] Comment on above: Performed By: #### 3 094-0, 16863-2, 0, 2028-06, E COMMERCE ARCHITECT, 2951- 2, 2777-1, 3084-1, 2731-8 #### [facility] ([id number]) [address], [address] [place] [address] #### CITACU #### [facility] ([id number]) [address] [place] [address]371 LEUKOCYTE ESTERASE JUNIOR Trace Abnormal [facility] Comment on above: Performed By: #### 3 094-0, 32848-8, 0, 2028-06, E COMMERCE ARCHITECT, 2951- 2, 2777-1, 3084-1, 2731-8 #### [facility] ([id number]) [address], [address] [place] [address] #### CITACU #### [facility] ([id number]) [address] [place] [address]18[address] NITRITE JUNIOR Negative Normal [facility] Comment on above: Performed By: #### 3 094-0, 79989-7, 2074-0, 2028-06, E COMMERCE ARCHITECT, 2951- 2, 2777-1, 3084-1, 2731-8 #### [facility] ([id number]) [address], [address] [place] [address] #### CITACU #### [facility] ([id number]) [address] [place] [address] 94456 PH JUNIOR 5.5 Normal 5.0-8.5 [facility] Comment on above: Performed By: #### 3 094-0, 54557-7, 2074-0, 2028-06, E COMMERCE ARCHITECT, 2951- 2, 2777-1, 3084-1, 273-8 #### [facility] ([id number]) [address], [address] [place] [address] #### CITACU #### [facility] ([id number]) [address] [place] [address]1214 PROTEIN JUNIOR 30 mg/dL Abnormal NEG [facility] Comment on above: Performed By: #### 3 094-0, 26767-1, 2074-0, 2028-06, E COMMERCE ARCHITECT, 2951- 2, 2777-1, 3084-1, 2730-8 #### [facility] ([id number]) [address], [address] [place] [address] #### CITACU #### [facility] ([id number]) [address] [place] [address] 34274 SPECIFIC GRAVITY JUNIOR >=1.030 Normal 1.003-1.035 [facility] Comment on above: Performed By: #### 3 094-0, 36455-3, 2074-0, 2028-06, E COMMERCE ARCHITECT, 2951- 2, 2777-1, 3084-1, 2730-8 #### [facility] ([id number]) [address], [address] [place] [address] #### CITACU #### [facility] ([id number]) [address] [place] [address] [place] [address] UROBILINOGEN JUNIOR 1.0 eu/dL Normal <1.1 [facility] Comment on above: Performed By: #### 3 094-0, 36509-7, 2075-0, 2027-9, E COMMERCE ARCHITECT, 2951- 2, 2777-1, 3084-1, 2731-8 #### [facility] ([id number]) [address] [place] [address], [address] [place] [address] #### CITACU #### [facility] ([id number]) [address] [facility], [place] [address] Follow-Upon 07-24-2024 Follow-Up [id number] Madyson Moore 1980 F Date Provider Department Center 07/24/2024 433-MONIQUE BURKETT MP ORTHO MPORTHO Family History Problem Relation Age of Onset Brain cancer Mother Breast cancer Sister Kidney cancer Maternal Grandmother Prostate cancer Paternal Grandfather Cancer Father Cancer Sister Family Status - Relation Status Age at Mother Sister Maternal Grandmother Paternal Grandfather Father Sister Level of Service:35926 HI OFFICE/OUTPATIENT ESTABLISHED MOD MDM 30 MIN (GC,57) Reason for Visit and Comments: New Patient [632] - History of Left knee revision that was performed on 06/01/22 , initial TKA in 10/[address] . Here today with chronic anterior knee pain since surgery. Follow-up [608873] - History of Left knee revision that was performed on 06/01/22 , initial TKA in 10/[address] . Here today with chronic anterior knee pain since surgery. Normal [facility] Follow-Upon 07-19-2024 Follow-Up [id number] Madyson Moore 1980 F Date Provider Department Center 07/19/2024 RUKHSANA ESPINOZA MP PAIN Medical Pavi Family History Problem Relation Age of Onset Brain cancer Mother Breast cancer Sister Kidney cancer Maternal Grandmother Prostate cancer Paternal Grandfather Cancer Father Cancer Sister Family Status - Relation Status Age at Mother Sister Maternal Grandmother Paternal Grandfather Father Sister Level of Service:98215 HI OFFICE/OUTPATIENT ESTABLISHED LOW MDM 20 MIN Reason for Visit and Comments: Med Management [[id number]] - Refill Hydrocodone-acetaminophen Pill count Med Refill [577324] - Gabapentin Normal [facility] Surgical Pathology Reporton 07-17-2024 Surgical Pathology Report (NOTE) Path Number: [id number] -- Diagnosis -- RIGHT PAROTID GLAND, 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 Sathya Lockett M.D. Electronically Signed Out 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 ryan Thalia [facility]/gregor2:07/17/2024 Microscopic Description The circumscribed tumor nodule contains nests and cords of benign epithelial cells embedded in chondromyxoid stroma, consistent with pleomorphic adenoma. The surrounding parotid gland tissue is unremarkable. A small, benign lymph node is present in the fibroadipose tissue surrounding the parotid gland. Processing Lab: [address] [address] Interpretation Performed at [address] [address] SURGICAL PATHOLOGY CONSULTATION Patient Name: ELVI MOORE Med Rec: [id number] [facility] ANATOMIC PATHOLOGY [address] [facility]. [place], [place] [address] Normal [facility] C-REACTIVE PROTEINon 024 C REACTIVE PROTEIN (MG/L) IN SER/PLAS 1.7 mg/L Normal 0.0-7.0 [facility] Comment on above: Performed By: #### L AB149 ####[facility] (BEAKER)[address] [place] [address] Labon 07-14-2024 Lab [id number] TeresaTabat ma 1980 F Date Provider Department Center 07/14/2024 2245-[facility] OPD LAB RESOURCE [facility] OPD [facility] Family History Problem Relation Age of Onset Brain cancer Mother Breast cancer Sister Kidney cancer Maternal Grandmother Prostate cancer Paternal Grandfather Cancer Father Cancer Sister Family Status - Relation Status Age at Mother Sister Maternal Grandmother Paternal Grandfather Father Sister Normal [facility] SEDIMENTATION RATEon 024 SEDIMENTATION RATE, ERYTHROCYTE 20 mm/hr Normal <=20 [facility] Comment on above: Performed By: #### L AB322 ####[facility] (BEAKER)[address] [place] [address] Orders Onlyon 07-04-2024 Orders Only [id number] Teresa,Tabat ma 1980 F Date Provider Department Center 07/04/2024 11244-WWQRQMIGDALIA KOTHARI MP PAIN Medical Pavi Family History Problem Relation Age of Onset Brain cancer Mother Breast cancer Sister Kidney cancer Maternal Grandmother Prostate cancer Paternal Grandfather Cancer Father Cancer Sister Family Status - Relation Status Age at Mother Sister Maternal Grandmother Paternal Grandfather Father Sister Normal [facility] Orders Only [id number] Teresa,Tabat ma 1980 F Date Provider Department Center 07/04/2024 RUKHSANA ESPINOZA MP PAIN Medical Pavi Family History Problem Relation Age of Onset Brain cancer Mother Breast cancer Sister Kidney cancer Maternal Grandmother Prostate cancer Paternal Grandfather Cancer Father Cancer Sister Family Status - Relation Status Age at Mother Sister Maternal Grandmother Paternal Grandfather Father Sister Normal [facility] Refillon 07-03-2024 Refill [id number] Teresa,Tabat ma 1980 F Date Provider Department Center 07/03/2024 RUKHSANA ESPINOZA MP PAIN Medical Pavi Family History Problem Relation Age of Onset Brain cancer Mother Breast cancer Sister Kidney cancer Maternal Grandmother Prostate cancer Paternal Grandfather Cancer Father Cancer Sister Family Status - Relation Status Age at Mother Sister Maternal Grandmother Paternal Grandfather Father Sister Reason for Visit and Comments: Med Refill [[id number]] Normal [facility] Refillon 06-07-2024 Refill [id number] Madyson Moore ma 1980 F Date Provider Department Center 06/07/2024 170-RUKHSANA MILLER MP PAIN Medical Pavi Family History Problem Relation Age of Onset Brain cancer Mother Breast cancer Sister Kidney cancer Maternal Grandmother Prostate cancer Paternal Grandfather Cancer Father Cancer Sister Family Status - Relation Status Age at Mother Sister Maternal Grandmother Paternal Grandfather Father Sister Reason for Visit and Comments: Med Refill [[id number]] Normal [facility] CT KNEE LEFT WO IV CONTRASTo n [...] Sathya Christianson. Not Ganesh Invalid Interpretation Code [facility] Office Visiton 06-01-2024 Follow-up visit [id number] Madyson Moore anil 1980 F Date Provider Department Center 06/01/2024 Jojo-KHRIS BUCHANAN MP ORTHO MPORTHO Family History Problem Relation Age of Onset Brain cancer Mother Breast cancer Sister Kidney cancer Maternal Grandmother Prostate cancer Paternal Grandfather Cancer Father Cancer Sister Family Status - Relation Status Age at Mother Sister Maternal Grandmother Paternal Grandfather Father Sister Level of Service:19313 HI OFFICE/OUTPATIENT ESTABLISHED LOW MDM 20 MIN Reason for Visit and Comments: New Patient [632] - Patient had 2nd knee replacement about a year ago, since then patient has been having increased pain and swelling, patient does see pain management and has stimulator in back Normal [facility] Refillon 05-09-2024 Refill [id number] Madyson Moore ma 1980 F Date Provider Department Center 05/09/2024 RUKHSANA ESPINOZA MP PAIN Medical Pavi Family History Problem Relation Age of Onset Brain cancer Mother Breast cancer Sister Kidney cancer Maternal Grandmother Prostate cancer Paternal Grandfather Cancer Father Cancer Sister Family Status - Relation Status Age at Mother Sister Maternal Grandmother Paternal Grandfather Father Sister Reason for Visit and Comments: Med Refill [958770] Normal [facility] Refillon 04-07-2024 Refill [id number] Madyson Moore ma 1980 F Date Provider Department Center 04/07/2024 RUKHSANA ESPINOZA MP PAIN Medical Pavi Family History Problem Relation Age of Onset Brain cancer Mother Breast cancer Sister Kidney cancer Maternal Grandmother Prostate cancer Paternal Grandfather Cancer Father Cancer Sister Family Status - Relation Status Age at Mother Sister Maternal Grandmother Paternal Grandfather Father Sister Reason for Visit and Comments: Med Refill [[id number]] Normal [facility] Nico 03-22-2024 L Specimen: BC Received: 03/23/24 Status: JOHNATHON Damon Num: [id number] Spec Type: Cytology Subm Dr: Harry Pettit MD Tissues: A FNA SLIDES NOPATH (RT PAROTID MASS) Procedures: HE/2, p63, Cyto Int and Re, p40, PAPSTN/9 Age/ Patient Sex Location Account Attending Physician Elvi Moore L 43/F LABELL [id number] Harry Pettit MD SPEC NUM: [id number] RECD: 03/23/24 STATUS: JOHNATHON REQ NUM: [id number] JHONATAN: 03/22/24- SUBM DR: Harry Pettit MD ENTERED: 03/23/24-14[address] [facility] DR: Monique,Lab Arleth Acharya MD SPEC TYPE: Cytology DEPT: [facility] ENTERED BY: [id number] RECV BY: [id number] ORDERED: HE/2, p63, Cyto Int and Re, [...] deeper level of sections for IHC CPT: 46553, 78858 Addendum Signed (signature on file) Chin-Jj Roldan MD 03/29/242032 Pathological Diagnosis Right parotid [...] [id number] Received: 03/23/24-1407 Status: JOHNATHON Damon Num: [id number] Spec Type: Cytology Subm Dr: Harry Pettit MD Tissues: A FNA SLIDES NOPATH (RT PAROTID MASS) Procedures: HE/2, p63, Cyto Int and Re, p40, PAPSTN/9 Patient: Elvi Moore [id number] (Continued) Specimen: [id number] Received: 03/23/24 (Continued) Pathological Diagnosis (Continued) Signed (signature on file) Luis F Roldan MD 03/29/24 1124 Specimen: [id number] Received: 03/23/24 Status: JOHNATHON Damon Num: [id number] Spec Type: Cytology Subm Dr: Harry Pettit MD Tissues: A FNA SLIDES NOPATH (RT PAROTID MASS) Procedures: HE/2, p63, Cyto Int and Re, p40, PAPSTN/9 Patient: Elvi Moore [id number] (Continued) Specimen: [id number] Received: 03/23/24-1408 (Continued) Pathological Diagnosis (Continued) ThinPrep smear, and [...] stained pap for microscopic examination.(CC/ct) CPT Codes 95098 15063 Specimen: [id number] Received: 03/23/24-140 Status: JOHNATHON Damon Num: [id number] Spec Type: Cytology Subm Dr: Harry Pettit MD Tissues: A FNA SLIDES NOPATH (RT PAROTID MASS) Procedures: HE/2, p63, Cyto Int and Re, p40, PAPSTN/9 Patient: Elvi Moore [id number] (Continued) Signed (signature on file) Luis F Roldan MD 03/29/24 1124 Normal [facility] Follow-Upon 03-17-2024 Follow-Up [id number] Madyson Moore 1980 F Date Provider Department Center 03/17/2024 170-RUKHSANA MILLER PAIN Medical Pavi Family History Problem Relation Age of Onset Brain cancer Mother Breast cancer Sister Kidney cancer Maternal Grandmother Prostate cancer Paternal Grandfather Cancer Father Cancer Sister Family Status - Relation Status Age at Mother Sister Maternal Grandmother Paternal Grandfather Father Sister Level of Service:17767 HI OFFICE/OUTPATIENT ESTABLISHED LOW MDM 20 MIN Reason for Visit and Comments: Knee Pain [407091] - Left knee pain Normal [facility] Screenson 03-08-2024 Screens [id number] Normal [facility] Patient Educationon 03-07-20 24 Patient Education [...] ? 8 oz (237 mL) of milk, maebdvh-afihhvivpkdl-oald y milk, and calcium-fortifiedfruit juice. Calcium-fortified means [...] Spinach (cooked), rhubarb, beets, sweet potatoes, and [place] chard. ? Peanuts. ? Potato chips, luxembourger fries, and baked potatoes with skin on. ? Nuts and nut products. ? Chocolate. ? If you regularly take a diuretic medicine, make sure to eat at least 1 or 2 servings of fruits or vegetables that are high in potassium each day. These include: ? Avocado. ? Banana. ? [place], prune, carrot, or tomato juice. ? Baked [...] fish oil, or vitamin B6. ? Take rsxs-ugs-hsvfwro and prescription medicines only as told by your health care provider. These include supplements. What foods sh (more content not included)... Normal [facility] 03-07-2024 [facility] [id number]#[id number] Normal [facility] Urology Office/Clinic Noteon 03-07-2024 Urology Office/Clinic [...] 10/12/23. Stone analysis: 60% CaOx Di, 35% [place]. 5% Phos Hydoxyl. KUB 03/03/24 [facility] - [...] Contact Information STEPH AVITIA, ELIZABETH Yi, URL [address] [address] [phone] Additional Instructions: 1 yr w/ KUB Patient [...] 100 mg= 1 tab(s), Oral multivitamin, Daily [place] 325 mg-5 mg oral tablet, 1 tab(s), [...] virus vaccine, inactivated 07/29/2022 Recorded SARS-CoV-2 (COVID-19) mRNAMUL.ORD![id number] 07/29/2022 Recorded SARS-CoV-2 (COVID-19) mRNA BNT-162b2 vax 10/08/2021 Recorded SARS-CoV-2 (COVID-19) mRNA BNT-162b2 vax 01/30/2021 Recorded SARS-CoV-2 (COVID-19) mRNA BNT-162b2 vax 01/09/2021 Recorded influenza virus vaccine, inactivated 07/11/2020 R (more content not included)... Normal [facility] Comment on above: Result Comment: Elec tronically Signed By: STEPH AVITIA, ELIZABETH Yi\.br\Date and Time Signed: 03/07/24 16:31 EDT\.br\Electronically Co-Signed By: Kandice Hardy\.br\Date and Time Co-Signed: 03/07/24 16:30 EDT CBC AND AUTO DIFFon 03-06-20 ABSOLUTE BASOPHIL 0.0 X10E9/L Normal 0.0-0.2 [facility] Comment on above: Performed By: #### 3 094-0, 55987-8, 0, 2028-06, E COMMERCE ARCHITECT, 2951- 2, 2777-1, 3084-1, 2731-8 #### [facility] ([id number]) [address], [address] [place] [address] #### CITACU #### [facility] ([id number]) [address] [place] [address], [place] [address] ABSOLUTE NEUTROPHIL 4.5 X10E9/L Normal 1.5-6.6 [facility] Comment on above: Performed By: #### 3 094-0, 76927-2, 0, 2028-06, E COMMERCE ARCHITECT, 2951- 2, 2777-1, 3084-1, 2731-8 #### [facility] ([id number]) [address], [address] [place] [address] #### CITACU #### [facility] ([id number]) [address] [place] [address] Basophils/100 WBC (Bld) 0.3 % Normal [facility] Comment on above: Performed By: #### 3 094-0, 47361-4, 0, 2028-06, E COMMERCE ARCHITECT, 2951- 2, 2777-1, 3084-1, 2731-8 #### [facility] ([id number]) [address], [address] [place] [address] #### CITACU #### [facility] ([id number]) [address] [place] [address] Eosinophils (Bld) [#/Vol] 0.0 10*3/uL Normal 0.0-0.4 [facility] Comment on above: Performed By: #### 3 094-0, 32681-0, 0, 2028-06, E COMMERCE ARCHITECT, 2951- 2, 2777-1, 3084-1, 273-8 #### [facility] ([id number]) [address] [facility], [address] [place] [address] #### CITACU #### [facility] ([id number]) [address] [place] [address] Eosinophils/100 WBC (Bld) 0.6 % Normal [facility] Comment on above: Performed By: #### 3 094-0, 28051-3, 0, 2028-06, E COMMERCE ARCHITECT, 2951- 2, 2777-1, 3084-1, 2731-8 #### [facility] ([id number]) [address], [address] [place] [address] #### CITACU #### [facility] ([id number]) [address] [place] [address]60[address] Erythrocyte distribution width (RBC) [Ratio] 14.6 % Normal 11.5-15.0 [facility] Comment on above: Performed By: #### 3 094-0, 71474-6, , 2028-06, E COMMERCE ARCHITECT, 2951- 2, 2777-1, 3084-1, 273-8 #### [facility] ([id number]) [address], [address] [place] [address] #### CITACU #### [facility] ([id number]) [address] [place] [address] Hematocrit (Bld) [Volume fraction] 39.4 % Normal 35-47 [facility] Comment on above: Performed By: #### 3 094-0, , , 2028-06, E COMMERCE ARCHITECT, 2951- 2, 2777-1, 3084-1, 273-8 #### [facility] ([id number]) [address], [address] [place] [address] #### CITACU #### [facility] ([id number]) [address] [place] [address] 31698 Hemoglobin (Bld) [Mass/Vol] 13.1 g/dL Normal 11.7-15.5 [facility] Comment on above: Performed By: #### 3 094-0, , , 2028-06, E COMMERCE ARCHITECT, 2951- 2, 2777-1, 3084-1, 273-8 #### [facility] ([id number]) [address] [place] [address] #### CITACU #### [facility] ([id number]) [address] [place] [address] Lymphocytes (Bld) [#/Vol] 2.0 10*3/uL Normal 1.0-3.5 [facility] Comment on above: Performed By: #### 3 094-0, , 0, 2028-06, E COMMERCE ARCHITECT, 2951- 2, 2777-1, 3084-1, 2731-8 #### [facility] ([id number]) [address] [place] [address] #### CITACU #### [facility] ([id number]) [address] [place] [address] Lymphocytes/100 WBC (Bld) 28.1 % Normal [facility] Comment on above: Performed By: #### 3 094-0, 48885-8, 0, 2028-06, E COMMERCE ARCHITECT, 2951- 2, 2777-1, 3084-1, 273-8 #### [facility] ([id number]) [address] [place] [address] #### CITACU #### [facility] ([id number]) [address] [place] [address]690 MCH (RBC) [Entitic mass] 28.2 pg Normal 27-34 [facility] Comment on above: Performed By: #### 3 094-0, 42237-7, 0, 2028-06, E COMMERCE ARCHITECT, 2951- 2, 2777-1, 3084-1, 273-8 #### [facility] ([id number]) [address], [address] [place] [address] #### CITACU #### [facility] ([id number]) [address] [place] [address] MCHC (RBC) [Mass/Vol] 33.2 g/dL Normal 32-36 [facility] Comment on above: Performed By: #### 3 094-0, 92038-6, 2074-0, 2028-06, E COMMERCE ARCHITECT, 2951- 2, 2777-1, 3084-1, 2731-8 #### [facility] ([id number]) [address], [address] [place] [address] #### CITACU #### [facility] ([id number]) [address] [place] [address] 90515 MCV (RBC) [Entitic vol] 85 fL Normal 80-100 [facility] Comment on above: Performed By: #### 3 094-0, 61133-7, 2074-0, 2028-06, E COMMERCE ARCHITECT, 2951- 2, 2777-1, 3084-1, 273-8 #### [facility] ([id number]) [address] [place] [address] #### CITACU #### [facility] ([id number]) [address] [place] [address] 81125 Monocytes (Bld) [#/Vol] 0.6 10*3/uL Normal 0-0.9 [facility] Comment on above: Performed By: #### 3 094-0, 50312-1, 2074-0, 2028-06, E COMMERCE ARCHITECT, 2951- 2, 2777-1, 3084-1, 273-8 #### [facility] ([id number]) [address], [address] [place] [address] #### CIT[place]U #### [facility] ([id number]) [address] [place] [address] 86282 Monocytes/100 WBC (Bld) 8.3 % Normal [facility] Comment on above: Performed By: #### 3 094-0, 55193-1, 2074-0, 2028-06, E COMMERCE ARCHITECT, 2951- 2, 2777-1, 3084-1, 273-8 #### [facility] ([id number]) [address], [address] [place] [address] #### CIT[place]U #### [facility] ([id number]) [address] [place] [address] 64006 Neutrophils/100 WBC (Bld) 62.7 % Normal [facility] Comment on above: Performed By: #### 3 094-0, 54629-6, 0, 2028-06, E COMMERCE ARCHITECT, 2951- 2, 2777-1, 3084-1, 2731-8 #### [facility] ([id number]) [address], [address] [place] [address] #### CIT[place]U #### [facility] ([id number]) [address] [place] [address] 70007 Platelet mean volume (Bld) [Entitic vol] 8.3 fL Normal 7-12 [facility] Comment on above: Performed By: #### 3 094-0, 25691-8, , 2028-06, E COMMERCE ARCHITECT, 2951- 2, 2777-1, 3084-1, 2731-8 #### [facility] ([id number]) [address], [address] [place] [address] #### CIT[place]U #### [facility] ([id number]) [address] [place] [address] 14386 Platelets (Bld) [#/Vol] 279 10*3/uL Normal 150-450 [facility] Comment on above: Performed By: #### 3 094-0, 92938-5, 0, 2028-06, E COMMERCE ARCHITECT, 2951- 2, 2777-1, 3084-1, 2731-8 #### [facility] ([id number]) [address], [address] [place] [address] #### CIT[place]U #### [facility] ([id number]) [address] [place] [address] 23474 RBC COUNT 4.63 X10E12/L Normal 3.80-5.20 [facility] Comment on above: Performed By: #### 3 094-0, 58070-5, , 2028-06, E COMMERCE ARCHITECT, 2951- 2, 2777-1, 3084-1, 273-8 #### [facility] ([id number]) [address], [address] [place] [address] #### CIT[place]U #### [facility] ([id number]) [address] [place] [address] 54441 WBC (Bld) [#/Vol] 7.2 10*3/uL Normal 4.0-11.0 [facility] Comment on above: Performed By: #### 3 094-0, 38428-8, , 2028-06, E COMMERCE ARCHITECT, 2951- 2, 2777-1, 3084-1, 273-8 #### [facility] ([id number]) [address], [address] [place] [address] #### CIT[place]U #### [facility] ([id number]) [address] [place] [address] 49026 COMPREHENSIVE METABOLIC PANE Nico 03-06-2024 Albumin [Mass/Vol] 4.4 g/dL Normal 3.2-5.3 [facility] Comment on above: Performed By: #### 3 094-0, 45185-6, , 2028-06, E COMMERCE ARCHITECT, 2951- 2, 2777-1, 3084-1, 273-8 #### [facility] ([id number]) [address], [address] [place] [address] #### CIT[place]U #### [facility] ([id number]) [address] [place] [address] 36528 ALP [Catalytic activity/Vol] 96 U/L Normal 39-130 [facility] Comment on above: Performed By: #### 3 094-0, 37098-4, , 2028-06, E COMMERCE ARCHITECT, 2951- 2, 2777-1, 3084-1, 2731-8 #### [facility] ([id number]) [address], [address] [place] [address] #### CIT[place]U #### [facility] ([id number]) [address] [place] [address] 66448 ALT [Catalytic activity/Vol] 16 U/L Normal 0-31 [facility] Comment on above: Performed By: #### 3 094-0, 34732-2, 0, 2028-06, E COMMERCE ARCHITECT, 2951- 2, 2777-1, 3084-1, 2731-8 #### [facility] ([id number]) [address], [address] [place] [address] #### CIT[place]U #### [facility] ([id number]) [address] [place] [address] 76529 Anion gap [Moles/Vol] 6 mmol/L Normal 5-15 [facility] Comment on above: Performed By: #### 3 094-0, 80751-2, , 2028-06, E COMMERCE ARCHITECT, 2951- 2, 2777-1, 3084-1, 2731-8 #### [facility] ([id number]) [address], [address] [place] [address] #### [place]U #### [facility] ([id number]) [address] [place] [address] 87890 AST [Catalytic activity/Vol] 22 U/L Normal 0-41 [facility] Comment on above: Performed By: #### 3 094-0, 04425-9, 0, 2028-06, E COMMERCE ARCHITECT, 2951- 2, 2777-1, 3084-1, 2731-8 #### [facility] ([id number]) [address], [address] [place] [address] #### CIT[place]U #### [facility] ([id number]) [address] [place] [address] 04312 Bilirubin [Mass/Vol] 0.4 mg/dL Normal 0.3-1.2 [facility] Comment on above: Performed By: #### 3 094-0, 16096-7, 0, 2028-06, E COMMERCE ARCHITECT, 2951- 2, 2777-1, 3084-1, 2731-8 #### [facility] ([id number]) [address], [address] [place] [address] #### [place]U #### [facility] ([id number]) [address] [place] [address] 59581 Calcium [Mass/Vol] 8.7 mg/dL Normal 8.5-10.5 [facility] Comment on above: Performed By: #### 3 094-0, 25793-8, , 2028-06, E COMMERCE ARCHITECT, 2951- 2, 2777-1, 3084-1, 2731-8 #### [facility] ([id number]) [address], [address] [place] [address] #### CIT[place]U #### [facility] ([id number]) [address] [place] [address] 89166 Chloride [Moles/Vol] 107 mmol/L Normal 98-109 [facility] Comment on above: Performed By: #### 3 094-0, 92553-5, 0, 2028-06, E COMMERCE ARCHITECT, 2951- 2, 2777-1, 3084-1, 2731-8 #### [facility] ([id number]) [address], [address] [place] [address] #### CIT[place]U #### [facility] ([id number]) [address] [place] [address] 46038 CO2 [Moles/Vol] 26 mmol/L Normal 22-32 [facility] Comment on above: Performed By: #### 3 094-0, 04513-2, , 2028-06, E COMMERCE ARCHITECT, 2951- 2, 2777-1, 3084-1, 2731-8 #### [facility] ([id number]) [address], [address] [place] [address] #### [place]U #### [facility] ([id number]) [address] [place] [address] 28840 Creatinine [Mass/Vol] 0.64 mg/dL Normal 0.40-1.00 [facility] Comment on above: Result Comment: METH OD TRACEABLE TO IDMS STANDARD Performed By: #### 3 094-0, 52421-6, , 2028-06, E COMMERCE ARCHITECT, 2951-2, 2777-1, 3084-1, 2731-8 #### [facility] ([id number]) [address], [address] [place] [address] #### [place]U #### [facility] ([id number]) [address] [place] [address] 50390 eGFR (CKD-EPI) NON-RACE DEPENDENT >90 Normal >59 [facility] Comment on above: Result Comment: Reported eGFR is based on the CKD-EPI 2020 equation that does not use a race coefficient. Performed By: #### 3 094-0, 59803-0, 0, 2028-06, E COMMERCE ARCHITECT, 2951-2, 2777-1, 3084-1, 2731-8 #### [facility] ([id number]) [address], [address] [place] [address] #### [place]U #### [facility] ([id number]) [address] [place] [address] 20527 Glucose [Mass/Vol] 88 mg/dL Normal 65-99 [facility] Comment on above: Performed By: #### 3 094-0, 35061-2, 0, 2028-06, E COMMERCE ARCHITECT, 2951- 2, 2777-1, 3084-1, 2731-8 #### [facility] ([id number]) [address], [address] [place] [address] #### [place]U #### [facility] ([id number]) [address] [place] [address] 36068 Potassium [Moles/Vol] 3.6 mmol/L Normal 3.5-5.0 [facility] Comment on above: Performed By: #### 3 094-0, 12555-6, , 2028-06, E COMMERCE ARCHITECT, 2951- 2, 2777-1, 3084-1, 2731-8 #### [facility] ([id number]) [address], [address] [place] [address] #### CIT[place]U #### [facility] ([id number]) [address] [place] [address] 42401 Protein [Mass/Vol] 8.0 g/dL Normal 6.0-8.0 [facility] Comment on above: Performed By: #### 3 094-0, 71743-3, , 2028-06, E COMMERCE ARCHITECT, 2951- 2, 2777-1, 3084-1, 2731-8 #### [facility] ([id number]) [address], [address] [place] [address] #### [place]U #### [facility] ([id number]) [address] [place] [address] 45220 Sodium [Moles/Vol] 139 mmol/L Normal 134-146 [facility] Comment on above: Performed By: #### 3 094-0, 88100-6, , 2028-9, E COMMERCE ARCHITECT, 2951- 2, 2777-1, 3084-1, 2731-8 #### [facility] ([id number]) [address], [address] [place] [address] #### CIT[place]U #### [facility] ([id number]) [address] [place] [address] Urea nitrogen [Mass/Vol] 14 mg/dL Normal 5-23 [facility] Comment on above: Performed By: #### 3 094-0, 94780-5, 2075-0, 2027-9, E COMMERCE ARCHITECT, 2951- 2, 2777-1, 3084-1, 2731-8 #### [facility] ([id number]) [address], [address] [place] [address] #### CIT[place]U #### [facility] ([id number]) [address] [place] [address] [place] ABDOMEN AND PELVIS WO CON Ton [...] Schmidt MD on 03/06/2024 11:46 PM Normal [facility] URINE CULTUREon 03-06-2024 Bacteria identified Cx Nom (U) SPECIMEN NOTES URINE RECEIVED WITHOUT PRESERVATIVE CULTURE RESULTS 10-50,000 ORGANISMS/mL NORMAL UROGENITAL ALE Normal [facility] Comment on above: Performed By: #### 3 094-0, 66033-9, , 2028-06, E COMMERCE ARCHITECT, 2951- 2, 2777-1, 3084-1, 2731-8 #### [facility] ([id number]) [address], [address] [place] [address] #### CIT[place]U #### [facility] ([id number]) [address] [place] [address] 50712 URN MACROSCOPIC NURon 2023 BILIRUBIN JUNIOR Negative Normal NEG [facility] Comment on above: Performed By: #### 3 094-0, 78033-4, , 2028-06, E COMMERCE ARCHITECT, 2951- 2, 2777-1, 3084-1, 273-8 #### [facility] ([id number]) [address], [address] [place] [address] #### CIT[place]U #### [facility] ([id number]) [address] [place] [address] 61417 BLOOD/HGB JUNIOR Large Abnormal NEG [facility] Comment on above: Performed By: #### 3 094-0, 25856-8, , 2028-06, E COMMERCE ARCHITECT, 2951- 2, 2777-1, 3084-1, 273-8 #### [facility] ([id number]) [address], [address] [place] [address] #### CIT[place]U #### [facility] ([id number]) [address] [place] [address] 46172 GLUCOSE JUNIOR Negative Normal NEG [facility] Comment on above: Performed By: #### 3 094-0, 95319-0, , 2028-06, E COMMERCE ARCHITECT, 2951- 2, 2777-1, 3084-1, 2731-8 #### [facility] ([id number]) [address], [address] [place] [address] #### CIT[place]U #### [facility] ([id number]) [address] [place] [address] 68361 KETONES JUNIOR Negative Normal NEG [facility] Comment on above: Performed By: #### 3 094-0, 38379-3, 0, 2028-06, E COMMERCE ARCHITECT, 2951- 2, 2777-1, 3084-1, 2731-8 #### [facility] ([id number]) [address], [address] [place] [address] #### [place]U #### [facility] ([id number]) [address] [place] [address] 43205 LEUKOCYTE ESTERASE JUNIOR Negative Normal NEG [facility] Comment on above: Performed By: #### 3 094-0, 50603-2, 0, 2028-06, E COMMERCE ARCHITECT, 2951- 2, 2777-1, 3084-1, 2731-8 #### [facility] ([id number]) [address] [place] [address] #### CIT[place]U #### [facility] ([id number]) [address] [place] [address] 35700 NITRITE JUNIOR Negative Normal NEG [facility] Comment on above: Performed By: #### 3 094-0, 26212-8, 2074-0, 2028-06, E COMMERCE ARCHITECT, 2951- 2, 2777-1, 3084-1, 2731-8 #### [facility] ([id number]) [address] [place] [address] #### CIT[place]U #### [facility] ([id number]) [address] [place] [address] 94142 PH JUNIOR 7.0 Normal 5.0-8.5 [facility] Comment on above: Performed By: #### 3 094-0, , , 2028-06, E COMMERCE ARCHITECT, 2951- 2, 2777-1, 3084-1, 2731-8 #### [facility] ([id number]) [address] [place] [address] #### CIT[place]U #### [facility] ([id number]) [address] [place] [address] 33374 PROTEIN JUNIOR 30 mg/dL Abnormal NEG [facility] Comment on above: Performed By: #### 3 094-0, , , 2028-06, E COMMERCE ARCHITECT, 2951- 2, 2777-1, 3084-1, 2731-8 #### [facility] ([id number]) [address] [place] [address] #### CIT[place]U #### [facility] ([id number]) [address] [place] [address] 16101 SPECIFIC GRAVITY JUNIOR 1.025 Normal 1.003-1.035 [facility] Comment on above: Performed By: #### 3 094-0, , , 2028-06, E COMMERCE ARCHITECT, 2951- 2, 2777-1, 3084-1, 2731-8 #### [facility] ([id number]) [address] [place] [address] #### CIT[place]U #### [facility] ([id number]) [address] [place] [address] 71091 UROBILINOGEN JUNIOR 1.0 eu/dL Normal <1.1 [facility] Comment on above: Performed By: #### 3 094-0, , , 2028-06, E COMMERCE ARCHITECT, 2951- 2, 2777-1, 3084-1, 2731-8 #### [facility] ([id number]) [address] [place] [address] #### CIT[place]U #### [facility] ([id number]) [address] [place] [address] 35228 Lab Reportson 02-22-2024 Lab Reports [id number]#1.00TIFF Normal [facility] Lab Reportson 02-18-2024 Lab Reports [id number]#1.00TIFF Normal [facility] Lab Reportson 02-17-2024 Lab Reports [id number]#1.00TIFF Normal [facility] 24 HR PHOSPHORUS,URINEon URINE PHOSPHORUS 0.8 g/24h Normal 0.4-1.3 [facility] Comment on above: Performed By: #### 3 094-0, , , 2028-06, E COMMERCE ARCHITECT, 2951- 2, 2777-1, 3084-1, 273-8 #### [facility] ([id number]) [address], [address] [place] [address] #### CIT[place]U #### [facility] ([id number]) [address] [place] [address] 75022 24 HR UR MAGNESIUMon 024 URINE MAGNESIUM 116 mg/24h Normal 72-182 [facility] Comment on above: Performed By: #### 3 094-0, 38181-1, , 2028-06, E COMMERCE ARCHITECT, 2951- 2, 2777-1, 3084-1, 2731-8 #### [facility] ([id number]) [address], [address] [place] [address] #### CIT[place]U #### [facility] ([id number]) [address] [place] [address] 99123 24 HR URINE CALCIUMon 2023 URINE CALCIUM 134 mg/24h Normal 50-250 [facility] Comment on above: Performed By: #### 3 094-0, 92771-6, 2074-0, 2028-06, E COMMERCE ARCHITECT, 2951- 2, 2777-1, 3084-1, 2731-8 #### [facility] ([id number]) [address] [place] [address] #### CITACU #### [facility] ([id number]) [address] [place] [address] 04755 24 HR URINE CREATININEon URINE CREATININE 0.88 g/24h Normal 0.80-1.80 [facility] Comment on above: Performed By: #### 3 094-0, 58430-5, 0, 2028-06, E COMMERCE ARCHITECT, 2951- 2, 2777-1, 3084-1, 2731-8 #### [facility] ([id number]) [address] [place] [address] #### CITACU #### [facility] ([id number]) [address] [place] [address] 25008 24 HR URINE SODIUMon 024 URINE SODIUM 189 mmol/24h Normal 40-220 [facility] Comment on above: Performed By: #### 3 094-0, 85009-0, 2074-0, 2028-06, E COMMERCE ARCHITECT, 2951- 2, 2777-1, 3084-1, 2731-8 #### [facility] ([id number]) [address] [place] [address] #### CIT[place]U #### [facility] ([id number]) [address] [place] [address] 20779 24 HR URINE URIC ACIDon URINE URIC ACID 0.4 g/24h Normal 0.3-0.8 [facility] Comment on above: Performed By: #### 3 094-0, 41694-7, 0, 2028-06, E COMMERCE ARCHITECT, 2951- 2, 2777-1, 3084-1, 2731-8 #### [facility] ([id number]) [address], [address] [place] [address] #### CIT[place]U #### [facility] ([id number]) [address] [place] [address] 19440 BLOOD UREA NITROGENon 2023 Urea nitrogen [Mass/Vol] 9 mg/dL Normal 5-23 [facility] Comment on above: Performed By: #### 3 094-0, 90111-0, , 2028-06, E COMMERCE ARCHITECT, 2951- 2, 2777-1, 3084-1, 2731-8 #### [facility] ([id number]) [address], [address] [place] [address] #### CITACU #### [facility] ([id number]) [address] [place] [address] 27890 CALCIUMon 02-15-2024 Calcium [Mass/Vol] 9.0 mg/dL Normal 8.5-10.5 [facility] Comment on above: Performed By: #### 3 094-0, 73090-0, 0, 2028-06, E COMMERCE ARCHITECT, 2951- 2, 2777-1, 3084-1, 2731-8 #### [facility] ([id number]) [address] [place] [address] #### CITACU #### [facility] ([id number]) [address] [place] [address] 64617 CARBON DIOXIDEon 02-15-2024 CO2 [Moles/Vol] 22 mmol/L Normal 22-32 [facility] Comment on above: Performed By: #### 3 094-0, 01913-0, , 2028-06, E COMMERCE ARCHITECT, 2951- 2, 2777-1, 3084-1, 2731-8 #### [facility] ([id number]) [address] [place] [address] #### CITACU #### [facility] ([id number]) [address] [place] [address] 53196 CHLORIDEon 02-15-2024 Chloride [Moles/Vol] 111 mmol/L High 98-109 [facility] Comment on above: Performed By: #### 3 094-0, 24543-3, , 2028-06, E COMMERCE ARCHITECT, 2951- 2, 2777-1, 3084-1, 2731-8 #### [facility] ([id number]) [address] [place] [address] #### CITACU #### [facility] ([id number]) [address] [place] [address]110[address] CITRIC ACID URINEon 02-15-20 24 CITRIC ACID,24H UR 550 mg/d Normal 320-1240 [facility] Comment on above: Performed By: #### 3 094-0, 14904-0, , 2028-06, E [employer]CE ARCHITECT, 2951- 2, 2777-1, 3084-1, 2731-8 #### [facility] ([id number]) [address], [address] [place] [address] #### CITACU #### [facility] ([id number]) [address] [place] [address]157 CITRIC ACID,UR,VOL 611 mg/L Normal [facility] Comment on above: Performed By: #### 3 094-0, 27580-5, 2074-0, 9, E [employer]CE ARCHITECT, 2951- 2, 2777-1, 3084-1, 2731-8 #### [facility] ([id number]) [address], [address] [place] [address] #### CITACU #### [facility] ([id number]) [address] [place] [address] CITRIC/CREAT RATIO 593 mg/g Normal >=150 [facility] Comment on above: Result Comment: NOTE INTERPRETIVE INFORMATION: Citric Acid, Urine This test was developed and its performance characteristics determined by [facility]. It has not been cleared or approved by the [place] Food and Drug Administration. This test was performed in a CLIA certified laboratory and is intended for clinical purposes. Performed By: [facility] [address] [place] [address] Enrollment Nurse: Luca Mosquera MD, PhD CLIA Number: [id number] Performed By: #### 3 094-0, 76191-9, 2074-0, 2028-06, E [employer]CE ARCHITECT, 2951-2, 2777-1, 3084-1, 2731-8 #### [facility] ([id number]) [address], [address] [place] [address] #### [place]U #### [facility] ([id number]) [address] [place] [address]279 CREATININE,24H URINE 927 mg/d Normal 700-1600 [facility] Comment on above: Performed By: #### 3 094-0, 69322-9, 2074-0, 2028-06, E [employer]CE ARCHITECT, 2951- 2, 2777-1, 3084-1, 2731-8 #### [facility] ([id number]) [address], [address] [place] [address] #### [place]U #### [facility] ([id number]) [address] [place] [address]646 CREATININE,UR,VOL 103 mg/dL Normal [facility] Comment on above: Performed By: #### 3 094-0, 40671-5, 0, 2028-06, E [employer]CE ARCHITECT, 2951- 2, 2777-1, 3084-1, 2731-8 #### [facility] ([id number]) [address], [address] [place] [address] #### CITACU #### [facility] ([id number]) [address] [place] [address] 23616 HOURS COLLECTED 24 Normal [facility] Comment on above: Performed By: #### 3 094-0, 60978-8, 0, 2028-06, E [employer]CE ARCHITECT, 2951- 2, 2777-1, 3084-1, 2731-8 #### [facility] ([id number]) [address], [address] [place] [address] #### CITACU #### [facility] ([id number]) [address] [place] [address] 47482 TOT VOLUME-24H URINE 900 Normal [facility] Comment on above: Performed By: #### 3 094-0, 80670-5, 0, 2028-06, E [employer]CE ARCHITECT, 2951- 2, 2777-1, 3084-1, 2731-8 #### [facility] ([id number]) [address], [address] [place] [address] #### CITACU #### [facility] ([id number]) [address] [place] [address]155 CREATININEon 02-15-2024 Creatinine [Mass/Vol] 0.70 mg/dL Normal 0.40-1.00 [facility] Comment on above: Result Comment: METH OD TRACEABLE TO IDMS STANDARD Performed By: #### 3 094-0, 02136-7, 0, 2028-06, E [employer]CE ARCHITECT, 2951-2, 2777-1, 3084-1, 2731-8 #### [facility] ([id number]) [address], [address] [place] [address] #### CITACU #### [facility] ([id number]) [address] [place] [address] 71473 eGFR (CKD-EPI) NON-RACE DEPENDENT >90 Normal >59 [facility] Comment on above: Result Comment: Reported eGFR is based on the CKD-EPI 2020 equation that does not use a race coefficient. Performed By: #### 3 094-0, 01908-9, , 2028-06, E COMMERCE ARCHITECT, 2951-2, 2777-1, 3084-1, 273-8 #### [facility] ([id number]) [address] [place] [address], [address] [place] [address] #### CITACU #### [facility] ([id number]) [address] [place] [address] 94455 OXALATE, TOTAL URINEon 02-14 CREATININE,24H URINE 945 mg/d Normal 700-1600 [facility] Comment on above: Result Comment: NOTE Performed By: [employer] [address] [place] [address] Enrollment Nurse: Luca Mosquera MD, PhD CLIA Number: [id number] Performed By: #### 3 094-0, 76729-8, 0, 2028-06, E COMMERCE ARCHITECT, 2951-2, 2777-1, 3084-1, 273-8 #### [facility] ([id number]) [address] [place] [address], [address] [place] [address] #### CITACU #### [facility] ([id number]) [address] [place] [address] 40056 CREATININE,UR,VOL 105 mg/dL Normal [facility] Comment on above: Performed By: #### 3 094-0, 15349-1, 0, 2028-06, E COMMERCE ARCHITECT, 2951- 2, 2777-1, 3084-1, 2731-8 #### [facility] ([id number]) [address], [address] [place] [address] #### CITACU #### [facility] ([id number]) [address] [place] [address] 97540 HOURS COLLECTED 24 Normal [facility] Comment on above: Performed By: #### 3 094-0, 80780-2, , 2028-06, E COMMERCE ARCHITECT, 2951- 2, 2777-1, 3084-1, 2731-8 #### [facility] ([id number]) [address], [address] [place] [address] #### CIT[employer]U #### [facility] ([id number]) [address] [place] [address] 03011 OXALATE, PER VOLUME 32 mg/L Normal [facility] Comment on above: Performed By: #### 3 094-0, 92635-0, , 2028-06, E COMMERCE ARCHITECT, 2951- 2, 2777-1, 3084-1, 2731-8 #### [facility] ([id number]) [address], [address] [place] [address] #### CIT[employer]U #### [facility] ([id number]) [address] [place] [address] 63939 OXALATE,URINE/24H 29 mg/d Normal 13-40 [facility] Comment on above: Result Comment: NOTE REFERENCE INTERVAL: Oxalate, Urine - per 24h Access complete set of age- and/or gender-specific reference intervals for this test in the [facility] ([employer]). This test was developed and its performance characteristics determined by [employer]. It has not been cleared or approved by the US Food and Drug Administration. This test was performed in a CLIA certified laboratory and is intended for clinical purposes. Performed By: #### 3 094-0, 06338-0, , 2028-06, E COMMERCE ARCHITECT, 2951-2, 2777-1, 3084-1, 2731-8 #### [facility] ([id number]) [address], [address] [place] [address] #### CIT[place]U #### [facility] ([id number]) [address] [place] [address] 73700 TOT VOLUME-24H URINE 900 Normal [facility] Comment on above: Performed By: #### 3 094-0, 60866-4, , 2028-06, E COMMERCE ARCHITECT, 2951- 2, 2777-1, 3084-1, 2731-8 #### [facility] ([id number]) [address], [address] [place] [address] #### CIT[employer]U #### [facility] ([id number]) [address] [place] [address] 52150 PHOSPHORUSon 02-15-2024 Phosphate [Mass/Vol] 3.7 mg/dL Normal 2.4-4.9 [facility] Comment on above: Performed By: #### 3 094-0, 59507-8, , 2028-06, E COMMERCE ARCHITECT, 2951- 2, 2777-1, 3084-1, 2731-8 #### [facility] ([id number]) [address], [address] [place] [address] #### [employer]U #### [facility] ([id number]) [address] [place] [address] 19803 Parathyrin.intact [Mass/Vol] on 02-15-2024 PTH INTACT 65 pg/mL Normal 12-88 [facility] Comment on above: Performed By: #### 3 094-0, 44079-5, , 2028-06, E COMMERCE ARCHITECT, 2951- 2, 2777-1, 3084-1, 2731-8 #### [facility] ([id number]) [address], [address] [place] [address] #### CIT[employer]U #### [facility] ([id number]) [address] [place] [address] 52213 SODIUMon 02-15-2024 Sodium [Moles/Vol] 141 mmol/L Normal 134-146 [facility] Comment on above: Performed By: #### 3 094-0, 93347-6, , 2028-06, E COMMERCE ARCHITECT, 2951- 2, 2777-1, 3084-1, 2731-8 #### [facility] ([id number]) [address] [facility] [address] [place] [address] #### CITACU #### [facility] ([id number]) [address] [place] [address] 98741 URIC ACIDon 02-15-2024 Urate [Mass/Vol] 3.6 mg/dL Normal 2.6-7.2 [facility] Comment on above: Performed By: #### 3 094-0, 22109-1, , 2028-06, E COMMERCE ARCHITECT, 2951- 2, 2777-1, 3084-1, 2731-8 #### [facility] ([id number]) [address], [address] [place] [address] #### CIT[employer]U #### [facility] ([id number]) [address] [place] [address] 27294 URINE VOLUME AND TIMEon TIME 24 h Normal [facility] Comment on above: Performed By: #### 3 094-0, 37440-8, , 2028-06, E COMMERCE ARCHITECT, 2951- 2, 2777-1, 3084-1, 2731-8 #### [facility] ([id number]) [address], [address] [place] [address] #### CITACU #### [facility] ([id number]) [address] [place] [address] 64393 TOTAL VOLUME 900 mL Normal [facility] Comment on above: Performed By: #### 3 094-0, 01402-6, 2074-0, 2028-06, E COMMERCE ARCHITECT, 2951- 2, 2777-1, 3084-1, 2731-8 #### [facility] ([id number]) [address], [address] [place] [address] #### CIT[employer]U #### [facility] ([id number]) [address] [place] [address] 50562 TIME 24 h Normal [facility] Comment on above: Performed By: #### 3 094-0, 42487-4, 2074-0, 2028-06, E COMMERCE ARCHITECT, 2951- 2, 2777-1, 3084-1, 2731-8 #### [facility] ([id number]) [address], [address] [place] [address] #### CIT[employer]U #### [facility] ([id number]) [address] [place] [address] 64459 TOTAL VOLUME 900 mL Normal [facility] Comment on above: Performed By: #### 3 094-0, 72112-9, 2074-0, 2028-06, E COMMERCE ARCHITECT, 2951- 2, 2777-1, 3084-1, 2731-8 #### [facility] ([id number]) [address], [address] [place] [address] #### CITACU #### [facility] ([id number]) [address] [place] [address] 58046 Orders Onlyon 02-04-2024 Orders Only [id number] Madyson Moore ma 1980 F Date Provider Department Center 02/04/2024 RUKHSANA ESPINOZA MP [facility] Family History Problem Relation Age of Onset Brain cancer Mother Breast cancer Sister Kidney cancer Maternal Grandmother Prostate cancer Paternal Grandfather Cancer Father Cancer Sister Family Status - Relation Status Age at Mother Sister Maternal Grandmother Paternal Grandfather Father Sister Normal [facility] Orders Onlyon 01-19-2024 Orders Only [id number] Madyson Moore ma 1980 F Date Provider Department Center 01/19/2024 RUKHSANA ESPINOZA MP [facility] Family History Problem Relation Age of Onset Brain cancer Mother Breast cancer Sister Kidney cancer Maternal Grandmother Prostate cancer Paternal Grandfather Cancer Father Cancer Sister Family Status - Relation Status Age at Mother Sister Maternal Grandmother Paternal Grandfather Father Sister Normal [facility] XR ankle LT min 3V*on 2023 XR ankle LT min 3V* [facility] [place] [address] [place], [place] [id number] XRay Report Signed Patient: Elvi Moore MR#: [id number] 779 : 1980 Acct:[id number] Age/Sex: 43 / F ADM Date: 01/06/24 [facility] Room: Type: [facility] Attending Dr: Rianna Antonio APRN Copies to: [...] Solange Brown M.D.01/06/2024 6:47 PM Dictation Location: [place] [address] Transcribed By: LUIS 01/06/241846 Dictated By: Solange Brown MD 01/06/241845 Signed By: 01/06/241846 Normal [facility] Transfer Inon 11-05-2023 Transfer In [id number] Normal [facility] Ferritinon 05-28-2023 Ferritin [Mass/Vol] 4.9 ng/mL Low 11.0-306.8 [facility] Comment on above: Result Comment: PERF ORMED BY: [place] [address] PATHOLOGIST VISITOR SERVICES REPRESENTATIVE MELISSA WAGNER M.D. Performed By: #### S CAN CBC, JANESSA, FE and TIBC #### [address] Iron and TIBC Profileon 05-11 % Iron Saturation 2.5 % Low 20-50 [facility] Comment on above: Performed By: #### S CAN CBC, JANESSA, FE and TIBC #### [address] Iron [Mass/Vol] 13 ug/dL Low 50-212 [facility] Comment on above: Performed By: #### S CAN CBC, JANESSA, FE and TIBC #### [address] Total Iron Binding Capacity 517 ug/dL High 255-450 [facility] Comment on above: Performed By: #### S CAN CBC, JANESSA, FE and TIBC #### [facility] [address] [place] [address] Transferrin [Mass/Vol] 369 mg/dL High 203-362 [facility] Comment on above: Performed By: #### S CAN CBC, JANESSA, FE and TIBC #### [facility] [address] [place] [address] [place] Scan and CBCon 05-28-2023 Anisocytosis Ql (Bld) Marked Normal [facility] Comment on above: Performed By: #### S CAN CBC, JANESSA, FE and TIBC #### [address] Basophils (Bld) [#/Vol] 0.0 10*3/uL Normal 0.0-0.2 [facility] Comment on above: Performed By: #### S CAN CBC, JANESSA, FE and TIBC #### [address] Basophils/100 WBC (Bld) 0.3 % Normal . [facility] Comment on above: Performed By: #### S CAN CBC, JANESSA, FE and TIBC #### [address] Eosinophils (Bld) [#/Vol] 0.0 10*3/uL Normal 0.0-0.45 [facility] Comment on above: Performed By: #### S CAN CBC, JANESSA, FE and TIBC #### [address] Eosinophils/100 WBC (Bld) 0.6 % Normal . [facility] Comment on above: Performed By: #### S CAN CBC, JANESSA, FE and TIBC #### [address] Erythrocyte distribution width (RBC) [Ratio] 20.1 % High 11.9-15.3 [facility] Comment on above: Performed By: #### S CAN CBC, JANESSA, FE and TIBC #### [address] Hematocrit (Bld) [Volume fraction] 28.6 % Low 34.0-46.4 [facility] Comment on above: Performed By: #### S CAN CBC, JANESSA, FE and TIBC #### [address] Hemoglobin (Bld) [Mass/Vol] 8.9 g/dL Low 11.8-15.4 [facility] Comment on above: Performed By: #### S CAN CBC, JANESSA, FE and TIBC #### [address] Hypochromasia Moderate Normal [facility] Comment on above: Performed By: #### S CAN CBC, JANESSA, FE and TIBC #### [address] Lymphocytes (Bld) [#/Vol] 2.6 10*3/uL Normal 1.00-4.8 [facility] Comment on above: Performed By: #### S CAN CBC, JANESSA, FE and TIBC #### [address] Lymphocytes/100 WBC (Bld) 37.7 % Normal . [facility] Comment on above: Performed By: #### S CAN CBC, JANESSA, FE and TIBC #### [address] MCH (RBC) [Entitic mass] 20.5 pg Low 24.7-34.3 [facility] Comment on above: Performed By: #### S CAN CBC, JANESSA, FE and TIBC #### [address] MCV (RBC) [Entitic vol] 65.8 fL Low 80-100 [facility] Comment on above: Performed By: #### S CAN CBC, JANESSA, FE and TIBC #### [address] Mean Corpuscular HGB Conc 31.1 g/dL Low 32.0-35.0 [facility] Comment on above: Performed By: #### S CAN CBC, JANESSA, FE and TIBC #### [address] Microcytosis Marked Normal [facility] Comment on above: Performed By: #### S CAN CBC, JANESSA, FE and TIBC #### [address] Monocytes (Bld) [#/Vol] 0.4 10*3/uL Normal 0.0-0.8 [facility] Comment on above: Performed By: #### S CAN CBC, JANESSA, FE and TIBC #### [address] Monocytes/100 WBC (Bld) 6.3 % Normal . [facility] Comment on above: Performed By: #### S CAN CBC, JANESSA, FE and TIBC #### [address] Neutrophils (Bld) [#/Vol] 3.8 10*3/uL Normal 1.8-7.7 [facility] Comment on above: Performed By: #### S CAN CBC, JANESSA, FE and TIBC #### [address] Neutrophils/100 WBC (Bld) 55.1 % Normal . [facility] Comment on above: Performed By: #### S CAN CBC, JANESSA, FE and TIBC #### [address] NRBC% 0.1 /100{WBC} Normal 0-0.5 [facility] Comment on above: Performed By: #### S CAN CBC, JANESSA, FE and TIBC #### [address] Ovalocytes Slight Normal [facility] Comment on above: Performed By: #### S CAN CBC, JANESSA, FE and TIBC #### [address] Platelet Estimate Normal Normal Normal [facility] Comment on above: Performed By: #### S CAN CBC, JANESSA, FE and TIBC #### [address] Platelet mean volume (Bld) [Entitic vol] 8.7 fL Normal 6.3-10.7 [facility] Comment on above: Performed By: #### S CAN CBC, JANESSA, FE and TIBC #### [address] Platelet Morphology Normal Normal Normal [facility] Comment on above: Result Comment: PERF ORMED BY: [place] [address] PATHOLOGIST VISITOR SERVICES REPRESENTATIVE MELISSA WAGNER M.D. Performed By: #### S CAN CBC, JANESSA, FE and TIBC #### [facility] [address] Platelets (Bld) [#/Vol] 218 10*3/uL Normal 150-450 [facility] Comment on above: Performed By: #### S CAN CBC, JANESSA, FE and TIBC #### [address] Poikilocytosis Slight Normal [facility] Comment on above: Performed By: #### S CAN CBC, JANESSA, FE and TIBC #### [address] RBC (Bld) [#/Vol] 4.34 10*6/uL Normal 3.60-5.00 [facility] Comment on above: Performed By: #### S CAN CBC, JANESSA, FE and TIBC #### [address] Schistocytes Slight Normal [facility] Comment on above: Performed By: #### S CAN CBC, JANESSA, FE and TIBC #### [address] WBC (Bld) [#/Vol] 6.9 10*3/uL Normal 3.8-11.6 [facility] Comment on above: Performed By: #### S CAN CBC, JANESSA, FE and TIBC #### [address] AMYLASEon 01-25-2023 Amylase [Catalytic activity/Vol] 64 U/L Normal 25-115 [facility] Comment on above: Performed By: #### B MP, LIPA, YVETTE, LIVER #### [facility] [address] [place] [address] Dr. Idania Roldan CBC AUTO DIFFon 01-25-2023 BASO # 0.0 103/ul Normal 0.0-0.1 [facility] Comment on above: Performed By: #### B MP, LIPA, YVETTE, LIVER #### [facility] [address] [place] [address] Dr. Idania Roldan Basophils/100 WBC (Bld) 0.3 % Normal 0.2-2.0 [facility] Comment on above: Performed By: #### B MP, LIPA, YVETTE, LIVER #### [facility] [address] [place] [address] Dr. Idania Roldan EO # 0.1 103/ul Normal 0.0-0.7 [facility] Comment on above: Performed By: #### B MP, LIPA, YVETTE, LIVER #### [facility] [address] [place] [address] Dr. Idania Roldan Eosinophils/100 WBC (Bld) 1.0 % Normal 0.9-7.0 [facility] Comment on above: Performed By: #### B MP, LIPA, YVETTE, LIVER #### [facility] [address] [place] [address] Dr. Idania Roldan Erythrocyte distribution width (RBC) [Ratio] 17.2 % Critically high 11.0-15.0 [facility] Comment on above: Performed By: #### B MP, LIPA, YVETTE, LIVER #### [facility] [address] [place] [address] Dr. Idania Roldan Hematocrit (Bld) [Volume fraction] 33.9 % Critically low 36.0-48.0 [facility] Comment on above: Performed By: #### B MP, LIPA, YVETTE, LIVER #### [facility] [address] [place] [address] Dr. Idania Roldan Hemoglobin (Bld) [Mass/Vol] 10.1 g/dL Critically low 12.0-16.0 [facility] Comment on above: Performed By: #### B MP, LIPA, YVETTE, LIVER #### [facility] [address] [place] [address] Dr. Idania Roldan IG # 0.01 10e3/ul Normal 0.00-0.03 [facility] Comment on above: Performed By: #### B MP, LIPA, YVETTE, LIVER #### [facility] [address] [place] [address] Dr. Idania Roldan IG % 0.2 % Normal 0.0-0.5 [facility] Comment on above: Performed By: #### B MP, LIPA, YVETTE, LIVER #### [facility] [address] [place] [address] Dr. Idania Roldan LYMPH # 1.7 103/ul Normal 1.2-3.8 [facility] Comment on above: Performed By: #### B MP, LIPA, YVETTE, LIVER #### [facility] [address] [place] [address] Dr. Idania Roldan Lymphocytes/100 WBC (Bld) 27.9 % Normal 20.5-60.0 [facility] Comment on above: Performed By: #### B MP, LIPA, YVETTE, LIVER #### [facility] [address] [place] [address] Dr. Idania Roldan MANUAL DIFF REQ NO Normal [facility] Comment on above: Performed By: #### B MP, LIPA, YVETTE, LIVER #### [facility] [address] [place] [address] Dr. Idania Roldan MCH (RBC) [Entitic mass] 20.7 pg Critically low 26.7-34.0 [facility] Comment on above: Performed By: #### B MP, LIPA, YVETTE, LIVER #### [facility] [address] [place] [address] Dr. Idania Roldan MCHC (RBC) [Mass/Vol] 29.8 g/dL Critically low 29.9-35.2 [facility] Comment on above: Performed By: #### B MP, LIPA, YVETTE, LIVER #### [facility] [address] [place] [address] Dr. Idania Roldan MCV (RBC) [Entitic vol] 69.6 fL Critically low 81.0-99.0 [facility] Comment on above: Performed By: #### B MP, LIPA, YVETTE, LIVER #### [facility] [address] [place] [address] Dr. Idania Roldan MONO # 0.4 103/ul Normal 0.3-0.8 [facility] Comment on above: Performed By: #### B MP, LIPA, YVETTE, LIVER #### [facility] [address] [place] [address] Dr. Idania Roldan Monocytes/100 WBC (Bld) 7.1 % Normal 1.7-12.0 [facility] Comment on above: Performed By: #### B MP, LIPA, YVETTE, LIVER #### [facility] [address] [place] [address] Dr. Idania Roldan NEUT # 3.8 103/ul Normal 1.4-6.5 [facility] Comment on above: Performed By: #### B MP, LIPA, YVETTE, LIVER #### [facility] [address] [place] [address] Dr. Idania Roldan Neutrophils/100 WBC (Bld) 63.5 % Normal 43.0-75.0 [facility] Comment on above: Performed By: #### B MP, LIPA, YVETTE, LIVER #### [facility] [address] [place] [address] Dr. Idania Roldan Platelet mean volume (Bld) [Entitic vol] 9.3 fL Critically low 9.5-13.5 [facility] Comment on above: Performed By: #### B MP, LIPA, YVETTE, LIVER #### [facility] [address] [place] [address] Dr. Idania Roldan PLT 294 103/ul Normal 150-450 [facility] Comment on above: Performed By: #### B MP, LIPA, YVETTE, LIVER #### [facility] [address] [place] [address] Dr. Idania Roldan RBC 4.87 106/ul Normal 4.20-5.40 [facility] Comment on above: Performed By: #### B MP, LIPA, YVETTE, LIVER #### [facility] [address] [place] [address] Dr. Idania Roldan WBC 6.0 103/ul Normal 4.0-11.0 [facility] Comment on above: Performed By: #### B MP, LIPA, YVETTE, LIVER #### [facility] [address] [address] [address] ABD/PELVIS WO CONon [...] VEDA BOND Date: 2023-01-25 12:20 Normal [facility] URINE PROFILEon 3 Bilirubin Ql (U) SMALL Abnormal NEGATIVE [facility] Comment on above: Performed By: #### B MP, LIPA, YVETTE, LIVER #### [facility] [address] [place] [address] [address] Idania Roldan Clarity (U) CLEAR Normal CLEAR [facility] Comment on above: Performed By: #### B MP, LIPA, YVETTE, LIVER #### [facility] [address] [place] [address] [address] Idania Roldan Color (U) DK. YELLOW Normal YELLOW [facility] Comment on above: Performed By: #### B MP, LIPA, YVETTE, LIVER #### [facility] [address] [place] [address] [address] Idania MENDOSA A micrscopic examina tion will be performed if indicated. Normal [facility] Comment on above: Performed By: #### B MP, LIPA, YVETTE, LIVER #### [facility] [address] [place] [address] Dr. Idania Roldan Glucose Ql (U) Negative Normal NEGATIVE [facility] Comment on above: Performed By: #### B MP, LIPA, YVETTE, LIVER #### [facility] [address] [place] [address] [address] Idania Roldan Hemoglobin Ql (U) LARGE Abnormal NEGATIVE [facility] Comment on above: Performed By: #### B MP, LIPA, YVETTE, LIVER #### [facility] [address] [place] [address] Dr. Idania Roldan Ketones Ql (U) TRACE Abnormal NEGATIVE [facility] Comment on above: Performed By: #### B MP, LIPA, YVETTE, LIVER #### [facility] [address] [place] [address] Dr. Idania Roldan LEUKOCYTES Negative Normal NEGATIVE [facility] Comment on above: Performed By: #### B MP, LIPA, YVETTE, LIVER #### [facility] [address] [place] [address] Dr. Idania Roldan Nitrite Ql (U) Negative Normal NEGATIVE [facility] Comment on above: Performed By: #### B MP, LIPA, YVETTE, LIVER #### [facility] [address] [place] [address] Dr. Idania Roldan pH (U) 5.0 [pH] Normal 5-9 [facility] Comment on above: Performed By: #### B MP, LIPA, YVETTE, LIVER #### [facility] [address] [place] [address] Dr. Idania Roldan SPEC GRAVITY >=1.030 Abnormal 1.005-<=1.02 5 [facility] Comment on above: Performed By: #### B MP, LIPA, YVETTE, LIVER #### [facility] [address] [place] [address] Dr. Idania Roldan UA PROTEIN TRACE Normal NEGATIVE/ TRACE [facility] Comment on above: Performed By: #### B MP, LIPA, YVETTE, LIVER #### [facility] [address] [place] [address] Dr. Idania Roldan UR MICRO IND INDICATED Normal [facility] Comment on above: Performed By: #### B MP, LIPA, YVETTE, LIVER #### [facility] [address] [place] [address] Dr. Idania Roldan Urobilinogen Qn (U) 0.2 {Bryan'U}/dL Normal 0.2 - 1. 0 [facility] Comment on above: Performed By: #### B MP, LIPA, YVETTE, LIVER #### [facility] [address] [place] [address] Dr. Idania Roldan LIPASEon 01-25-2023 Lipase [Catalytic activity/Vol] 226.0 U/L Normal 73.0-393.0 [facility] Comment on above: Performed By: #### B MP, LIPA, YVETTE, LIVER #### [facility] [address] [place] [address] Dr. Idania Roldan LIVER PROFILEon 01-25-2023 Albumin [Mass/Vol] 4.1 g/dL Normal 3.4-5.0 [facility] Comment on above: Performed By: #### B MP, LIPA, YVETTE, LIVER #### [facility] [address] [place] [address] Dr. Idania Roldan Albumin/Globulin [Mass ratio] 0.9 {ratio} Normal [facility] Comment on above: Performed By: #### B MP, LIPA, YVETTE, LIVER #### [facility] [address] [place] [address] Dr. Idania Roldan ALP [Catalytic activity/Vol] 110 U/L Normal 46-116 [facility] Comment on above: Performed By: #### B MP, LIPA, YVETTE, LIVER #### [facility] [address] [place] [address] Dr. Idania Roldan ALT [Catalytic activity/Vol] 20 U/L Normal 14-59 [facility] Comment on above: Performed By: #### B MP, LIPA, YVETTE, LIVER #### [facility] [address] [place] [address] Dr. Idanai Roldan AST [Catalytic activity/Vol] 11 U/L Critically low 15-37 [facility] Comment on above: Performed By: #### B MP, LIPA, YVETTE, LIVER #### [facility] [address] [place] [address] Dr. Idania Roldan BILI, CONJUGATED 0.1 mg/dL Normal 0.0-0.2 [facility] Comment on above: Performed By: #### B MP, LIPA, YVETTE, LIVER #### [facility] [address] [place] [address] Dr. Idania Roldan Bilirubin [Mass/Vol] 0.3 mg/dL Normal 0.2-1.0 [facility] Comment on above: Performed By: #### B MP, LIPA, YVETTE, LIVER #### [facility] [address] [place] [address] Dr. Idania Roldan Globulin (S) [Mass/Vol] 4.4 g/dL Normal [facility] Comment on above: Performed By: #### B MP, LIPA, YVETTE, LIVER #### [facility] [address] [place] [address] Dr. Idania Roldan Protein [Mass/Vol] 8.5 g/dL Critically high 6.4-8.2 [facility] Comment on above: Performed By: #### B MP, LIPA, YVETTE, LIVER #### [facility] [address] [place] [address] Dr. Idania Roldan PROF CHEM 8 (BAS METB)on Anion gap [Moles/Vol] 13.5 mmol/L Normal [facility] Comment on above: Performed By: #### B MP, LIPA, YVETTE, LIVER #### [facility] [address] [place] [address] Dr. Idania Roldan Calcium [Mass/Vol] 9.3 mg/dL Normal 8.5-10.1 [facility] Comment on above: Performed By: #### B MP, LIPA, YVETTE, LIVER #### [facility] [address] [address] [address] Idania Roldan Chloride [Moles/Vol] 105 mmol/L Normal 98-107 [facility] Comment on above: Performed By: #### B MP, LIPA, YVETTE, LIVER #### [facility] [address] [address] [address] Idania Roldan CO2 [Moles/Vol] 27.2 mmol/L Normal 21.0-32.0 [facility] Comment on above: Performed By: #### B MP, LIPA, YVETTE, LIVER #### [facility] [address] [address] [address] Idania Roldan Creatinine [Mass/Vol] 0.74 mg/dL Normal 0.55-1.02 [facility] Comment on above: Performed By: #### B MP, LIPA, YVETTE, LIVER #### [facility] [address] [address] [address] Idania Roldan EGFR-AF ISRAELI >60 Normal >=60 [facility] Comment on above: Performed By: #### B MP, LIPA, YVETTE, LIVER #### [facility] [address] [address] [address] Idania Roldan EGFR-NON AF ISRAELI >60 Normal >=60 [facility] Comment on above: Performed By: #### B MP, LIPA, YVETTE, LIVER #### [facility] [address] [address] [address] Idania Roldan Glucose [Mass/Vol] 97 mg/dL Normal 74-106 [facility] Comment on above: Performed By: #### B MP, LIPA, YVETTE, LIVER #### [facility] [address] [address] [address] Idania Roldan Potassium [Moles/Vol] 3.7 mmol/L Normal 3.5-5.1 [facility] Comment on above: Performed By: #### B MP, LIPA, YVETTE, LIVER #### [facility] [address] [address] [address] Idania Roldan Sodium [Moles/Vol] 142 mmol/L Normal 136-145 [facility] Comment on above: Performed By: #### B MP, LIPA, YVETTE, LIVER #### [facility] [address] [place] [address] Dr. Idania Roldan Urea nitrogen [Mass/Vol] 13.0 mg/dL Normal 7.0-18.0 [facility] Comment on above: Performed By: #### B MP, LIPA, YVETTE, LIVER #### [facility] [address] [place] [address] Dr. Idania Roldan Urea nitrogen/Creatinine [Mass ratio] 17.6 mg/mg Normal [facility] Comment on above: Performed By: #### B MP, LIPA, YVETTE, LIVER #### [facility] [address] [place] [address] Dr. Idania Roldan URINE MICROSCOPIC ONLYon BACTERIA NONE SEEN Normal NONE SEEN [facility] Comment on above: Performed By: #### B MP, LIPA, YVETTE, LIVER #### [facility] [address] [place] [address] Dr. Idania Roldan Bacteria identified Cx Nom (U) NOT INDICATED Normal [facility] Comment on above: Performed By: #### B MP, LIPA, YVETTE, LIVER #### [facility] [address] [place] [address] Dr. Idania Roldan CAST NONE SEEN Normal NONE SEEN [facility] Comment on above: Performed By: #### B MP, LIPA, YVETTE, LIVER #### [facility] [address] [place] [address] Dr. Idania Roldan Crystals LM Nom (Urine sed) NONE SEEN Normal NONE SEEN [facility] Comment on above: Performed By: #### B MP, LIPA, YVETTE, LIVER #### [facility] [address] [place] [address] Dr. Idania Roldan Epithelial cells LM Ql (Urine sed) FEW Abnormal NONE SEEN /RARE [facility] Comment on above: Performed By: #### B MP, LIPA, YVETTE, LIVER #### [facility] [address] [place] [address] Dr. Idania Roldan MUCOUS NONE SEEN Normal NONE SEEN [facility] Comment on above: Performed By: #### B MP, LIPA, YVETTE, LIVER #### [facility] [address] [place] [address] Dr. Idania Roldan RBC (U) [#/Vol] /uL Abnormal 0-2 [facility] Comment on above: Performed By: #### B MP, LIPA, YVETTE, LIVER #### [facility] [address] [place] [address] Dr. Idania Roldan WBC NONE SEEN Normal NONE SEEN [facility] Comment on above: Performed By: #### B MP, LIPA, YVETTE, LIVER #### [facility] [address] [place] [address] Dr. Idania Roldan XR KUB 1 VIEWon [...] DENILSON AUSTIN Date: 2023-01-24 19:51 Normal [facility] AMYLASEon 01-21-2023 Amylase [Catalytic activity/Vol] 64 U/L Normal 25-115 [facility] Comment on above: Performed By: #### P T, PTT #### [facility] [address] [place] [address] Dr. Idania Roldan CBC AUTO DIFFon 01-21-2023 BASO # 0.0 103/ul Normal 0.0-0.1 [facility] Comment on above: Performed By: #### B MP, LIPA, YVETTE, LIVER #### [facility] [address] [place] [address] Dr. Idania Roldan Basophils/100 WBC (Bld) 0.2 % Normal 0.2-2.0 [facility] Comment on above: Performed By: #### B MP, LIPA, YVETTE, LIVER #### [facility] [address] [place] [address] Dr. Idania Roldan EO # 0.1 103/ul Normal 0.0-0.7 [facility] Comment on above: Performed By: #### B MP, LIPA, YVETTE, LIVER #### [facility] [address] [place] [address] Dr. Idania Roldan Eosinophils/100 WBC (Bld) 0.9 % Normal 0.9-7.0 [facility] Comment on above: Performed By: #### B MP, LIPA, YVETTE, LIVER #### [facility] [address] [place] [address] Dr. Idania Roldan Erythrocyte distribution width (RBC) [Ratio] 17.2 % Critically high 11.0-15.0 [facility] Comment on above: Performed By: #### B MP, LIPA, YVETTE, LIVER #### [facility] [address] [place] [address] Dr. Idania Roldan Hematocrit (Bld) [Volume fraction] 32.5 % Critically low 36.0-48.0 [facility] Comment on above: Performed By: #### B MP, LIPA, YVETTE, LIVER #### [facility] [address] [place] [address] Dr. Idania Roldan Hemoglobin (Bld) [Mass/Vol] 9.5 g/dL Critically low 12.0-16.0 [facility] Comment on above: Performed By: #### B MP, LIPA, YVETTE, LIVER #### [facility] [address] [place] [address] Dr. Idania Roldan IG # 0.01 10e3/ul Normal 0.00-0.03 [facility] Comment on above: Performed By: #### B MP, LIPA, YVETTE, LIVER #### [facility] [address] [place] [address] Dr. Idania Roldan IG % 0.2 % Normal 0.0-0.5 [facility] Comment on above: Performed By: #### B MP, LIPA, YVETTE, LIVER #### [facility] [address] [place] [address] Dr. Idania Roldan LYMPH # 2.0 103/ul Normal 1.2-3.8 [facility] Comment on above: Performed By: #### B MP, LIPA, YVETTE, LIVER #### [facility] [address] [place] [address] Dr. Idania Roldan Lymphocytes/100 WBC (Bld) 34.7 % Normal 20.5-60.0 [facility] Comment on above: Performed By: #### B MP, LIPA, YVETTE, LIVER #### [facility] [address] [place] [address] Dr. Idania Roldan MANUAL DIFF REQ NO Normal [facility] Comment on above: Performed By: #### B MP, LIPA, YVETTE, LIVER #### [facility] [address] [place] [address] Dr. Idania Roldan MCH (RBC) [Entitic mass] 20.5 pg Critically low 26.7-34.0 [facility] Comment on above: Performed By: #### B MP, LIPA, YVETTE, LIVER #### [facility] [address] [place] [address] Dr. Idania Roldan MCHC (RBC) [Mass/Vol] 29.2 g/dL Critically low 29.9-35.2 [facility] Comment on above: Performed By: #### B MP, LIPA, YVETTE, LIVER #### [facility] [address] [place] [address] Dr. Idania Roldan MCV (RBC) [Entitic vol] 70.2 fL Critically low 81.0-99.0 [facility] Comment on above: Performed By: #### B MP, LIPA, YVETTE, LIVER #### [facility] [address] [place] [address] Dr. Idania Roldan MONO # 0.5 103/ul Normal 0.3-0.8 [facility] Comment on above: Performed By: #### B MP, LIPA, YVETTE, LIVER #### [facility] [address] [place] [address] Dr. Idania Roldan Monocytes/100 WBC (Bld) 8.7 % Normal 1.7-12.0 [facility] Comment on above: Performed By: #### B MP, LIPA, YVETTE, LIVER #### [facility] [address] [place] [address] Dr. Idania Roldan NEUT # 3.2 103/ul Normal 1.4-6.5 [facility] Comment on above: Performed By: #### B MP, LIPA, YVETTE, LIVER #### [facility] [address] [place] [address] Dr. Idania Roldan Neutrophils/100 WBC (Bld) 55.3 % Normal 43.0-75.0 [facility] Comment on above: Performed By: #### B MP, LIPA, YVETTE, LIVER #### [facility] [address] [place] [address] Dr. Idania Roldan Platelet mean volume (Bld) [Entitic vol] 9.7 fL Normal 9.5-13.5 [facility] Comment on above: Performed By: #### B MP, LIPA, YVETTE, LIVER #### [facility] [address] [place] [address] Dr. Idania Roldan PLT 310 103/ul Normal 150-450 [facility] Comment on above: Performed By: #### B MP, LIPA, YVETTE, LIVER #### [facility] [address] [place] [address] Dr. Idania Roldan RBC 4.63 106/ul Normal 4.20-5.40 [facility] Comment on above: Performed By: #### B MP, LIPA, YVETTE, LIVER #### [facility] [address] [place] [address] Dr. Idania Roldan WBC 5.8 103/ul Normal 4.0-11.0 [facility] Comment on above: Performed By: #### B MP, LIPA, YVETTE, LIVER #### [facility] [address] [place] [address] Dr. Idania Roldan CULTURE URINEon 01-21-2023 CULTURE URINE Culture Observations : MODERATE GROWTH OF MIXED GENITAL ALE. NO POTENTIAL PATHOGENS SEEN. Normal [facility] Comment on above: Performed By: #### P T, PTT #### [facility] [address] [place] [address] Dr. Idania Roldan LIPASEon 01-21-2023 Lipase [Catalytic activity/Vol] 251.0 U/L Normal 73.0-393.0 [facility] Comment on above: Performed By: #### P T, PTT #### [facility] [address] [place] [address] Dr. Idania Roldan PROF 14(COMP METB)on 023 Albumin [Mass/Vol] 3.8 g/dL Normal 3.4-5.0 [facility] Comment on above: Performed By: #### P T, PTT #### [facility] [address] [place] [address] Dr. Idania Roldan Albumin/Globulin [Mass ratio] 1.0 {ratio} Normal [facility] Comment on above: Performed By: #### P T, PTT #### [facility] [address] [place] [address] Dr. Idania Roldan ALP [Catalytic activity/Vol] 107 U/L Normal 46-116 [facility] Comment on above: Performed By: #### P T, PTT #### [facility] [address] [place] [address] Dr. Idania Roldan ALT [Catalytic activity/Vol] 17 U/L Normal 14-59 [facility] Comment on above: Performed By: #### P T, PTT #### [facility] [address] [place] [address] Dr. Idania Roldan Anion gap [Moles/Vol] 13.3 mmol/L Normal [facility] Comment on above: Performed By: #### P T, PTT #### [facility] [address] [place] [address] Dr. Idania Roldan AST [Catalytic activity/Vol] 9 U/L Critically low 15-37 [facility] Comment on above: Performed By: #### P T, PTT #### [facility] [address] [address] [address] Idania Roldan Bilirubin [Mass/Vol] 0.3 mg/dL Normal 0.2-1.0 [facility] Comment on above: Performed By: #### P T, PTT #### [facility] [address] [place] [address] Dr. Idania Roldan Calcium [Mass/Vol] 9.0 mg/dL Normal 8.5-10.1 [facility] Comment on above: Performed By: #### P T, PTT #### [facility] [address] [place] [address] Dr. Idania Roldan Chloride [Moles/Vol] 103 mmol/L Normal 98-107 [facility] Comment on above: Performed By: #### P T, PTT #### [facility] [address] [place] [address] Dr. Idania Roldan CO2 [Moles/Vol] 28.2 mmol/L Normal 21.0-32.0 [facility] Comment on above: Performed By: #### P T, PTT #### [facility] [address] [place] [address] Dr. Idania Roldan Creatinine [Mass/Vol] 0.81 mg/dL Normal 0.55-1.02 [facility] Comment on above: Performed By: #### P T, PTT #### [facility] [address] [place] [address] Dr. Idania Roldan EGFR-AF ISRAELI >60 Normal >=60 [facility] Comment on above: Performed By: #### P T, PTT #### [facility] [address] [place] [address] Dr. Idania Roldan EGFR-NON AF ISRAELI >60 Normal >=60 [facility] Comment on above: Performed By: #### P T, PTT #### [facility] [address] [place] [address] Dr. Idania Roldan Globulin (S) [Mass/Vol] 3.9 g/dL Normal [facility] Comment on above: Performed By: #### P T, PTT #### [facility] [address] [address] [address] Idania Roldan Glucose [Mass/Vol] 93 mg/dL Normal 74-106 [facility] Comment on above: Performed By: #### P T, PTT #### [facility] [address] [place] [address] Dr. Idania Roldan Potassium [Moles/Vol] 3.5 mmol/L Normal 3.5-5.1 [facility] Comment on above: Performed By: #### P T, PTT #### [facility] [address] [place] [address] Dr. Idania Roldan Protein [Mass/Vol] 7.7 g/dL Normal 6.4-8.2 [facility] Comment on above: Performed By: #### P T, PTT #### [facility] [address] [place] [address] Dr. Idania Roldan Sodium [Moles/Vol] 141 mmol/L Normal 136-145 [facility] Comment on above: Performed By: #### P T, PTT #### [facility] [address] [place] [address] Dr. Idania Roldan Urea nitrogen [Mass/Vol] 11.0 mg/dL Normal 7.0-18.0 [facility] Comment on above: Performed By: #### P T, PTT #### [facility] [address] [place] [address] Dr. Idania Roldan Urea nitrogen/Creatinine [Mass ratio] 13.6 mg/mg Normal [facility] Comment on above: Performed By: #### P T, PTT #### [facility] [address] [place] [address] Dr. Idania Roldan UA RANDOM W/MICROSCOPICon BACTERIA SMALL Abnormal NONE SEEN [facility] Comment on above: Performed By: #### B MP, LIPA, YVETTE, LIVER #### [facility] [address] [place] [address] Dr. Idania Roldan Bilirubin Ql (U) SMALL Abnormal NEGATIVE [facility] Comment on above: Performed By: #### B MP, LIPA, YVETTE, LIVER #### [facility] [address] [address] [address] Idania Roldan CAST NONE SEEN Normal NONE SEEN [facility] Comment on above: Performed By: #### B MP, LIPA, YVETTE, LIVER #### [facility] [address] [address] [address] Idania Roldan Clarity (U) CLEAR Normal CLEAR [facility] Comment on above: Performed By: #### B MP, LIPA, YVETTE, LIVER #### [facility] [address] [address] [address] Idania Roldan Color (U) DK. YELLOW Normal YELLOW [facility] Comment on above: Performed By: #### B MP, LIPA, YVETTE, LIVER #### [facility] [address] [address] [address] Idania Roldan Crystals LM Nom (Urine sed) NONE SEEN Normal NONE SEEN [facility] Comment on above: Performed By: #### B MP, LIPA, YVETTE, LIVER #### [facility] [address] [place] [address] Dr. Idania Roldan Epithelial cells LM Ql (Urine sed) FEW Abnormal NONE SEEN /RARE [facility] Comment on above: Performed By: #### B MP, LIPA, YVETTE, LIVER #### [facility] [address] [place] [address] Dr. Idania Roldan Glucose Ql (U) Negative Normal NEGATIVE [facility] Comment on above: Performed By: #### B MP, LIPA, YVETTE, LIVER #### [facility] [address] [address] [address] Idania Roldan Hemoglobin Ql (U) LARGE Abnormal NEGATIVE [facility] Comment on above: Performed By: #### B MP, LIPA, YVETTE, LIVER #### [facility] [address] [place] [address] Dr. Idania Roldan Ketones Ql (U) TRACE Abnormal NEGATIVE [facility] Comment on above: Performed By: #### B MP, LIPA, YVETTE, LIVER #### [facility] [address] [place] [address] Dr. Idania Roldan LEUKOCYTES Negative Normal NEGATIVE [facility] Comment on above: Performed By: #### B MP, LIPA, YVETTE, LIVER #### [facility] [address] [address] [address] Idania Roldan MUCOUS MODERATE Abnormal NONE SEEN [facility] Comment on above: Performed By: #### B MP, LIPA, YVETTE, LIVER #### [facility] [address] [address] [address] Idania Roldan Nitrite Ql (U) Negative Normal NEGATIVE [facility] Comment on above: Performed By: #### B MP, LIPA, YVETTE, LIVER #### [facility] [address] [place] [address] Dr. Idania Roldan pH (U) 5.0 [pH] Normal 5-9 [facility] Comment on above: Performed By: #### B MP, LIPA, YVETTE, LIVER #### [facility] [address] [place] [address] Dr. Idania Roldan RBC (U) [#/Vol] /uL Abnormal 0-2 [facility] Comment on above: Performed By: #### B MP, LIPA, YVETTE, LIVER #### [facility] [address] [place] [address] Dr. Idania Roldan SPEC GRAVITY >=1.030 Abnormal 1.005-<=1.02 5 [facility] Comment on above: Performed By: #### B MP, LIPA, YVETTE, LIVER #### [facility] [address] [place] [address] Dr. Idania Roldan UA PROTEIN TRACE Normal NEGATIVE/ TRACE [facility] Comment on above: Performed By: #### B MP, LIPA, YVETTE, LIVER #### [facility] [address] [address] [address] Idania Roldan Urobilinogen Qn (U) 0.2 {Bryan'U}/dL Normal 0.2 - 1. 0 [facility] Comment on above: Performed By: #### B MP, LIPA, YVETTE, LIVER #### [facility] [address] [place] [address] Dr. Idania Roldan WBC 0-2 Abnormal NONE SEEN [facility] Comment on above: Performed By: #### B MP, LIPA, YVETTE, LIVER #### [facility] [address] [place] [address] Dr. Idania Roldan Covid-19 PCR (CVDTB)on 09-11 SARS-CoV-2 (COVID-19) RNA MAMIE+probe Ql (Unsp spec) Detected Critically abnormal NOT DETECTED [facility] Comment on above: Result Comment: This test is not yet approved or cleared by the [place] FDA. When there are no FDA-approved or cleared tests available, and other criteria are met, FDA can make tests available under an emergency access mechanism called an Emergency Use Authorization (EUA). The EUA for this test is supported by the [place] of Health and Human Service's (HHS's) declaration [...] used). Performed By: #### C VDTBH #### [facility] [address] [place] [address] Dr. Idania Roldan INFLUENZA A AND B AGon 10-06 INFLUANEGH SEE BELOW Normal [facility] Comment on above: Result Comment: Nega tive for Flu A protein angiten. Infection due to Flu A cannot be ruled out. Flu A angiten in the sample may be below the detection limit of the test. Performed By: #### P T, PTT #### [facility] [address] [place] [address] Dr. Idania Roldan INFLUBNEG SEE BELOW Normal [facility] Comment on above: Result Comment: Nega tive for Flu B protein antigen. Infection due to Flu B cannot be ruled out. Flu B antigen in the sample may be below the detection limit of the test. Performed By: #### P T, PTT #### [facility] [address] [place] [address] Dr. Idania Roldan INFLUENZA A AG Negative Normal NEGATIVE SEE COMMENT [facility] Comment on above: Performed By: #### P T, PTT #### [facility] [address] [place] [address] Dr. Idania Roldan INFLUENZA B AG Negative Normal NEGATIVE SEE COMMENT [facility] Comment on above: Performed By: #### P T, PTT #### [facility] [address] [place] [address] Dr. Idania Roldan INTERNAL CONTROLS Within Normal Limits Normal Wi thin Normal Limits [facility] Comment on above: Performed By: #### P T, PTT #### [facility] [address] [place] [address] Dr. Idania Roldan AMYLASEon 09-30-2022 Amylase [Catalytic activity/Vol] 62 U/L Normal 25-115 [facility] Comment on above: Performed By: #### B MP, LIPA, YVETTE, LIVER #### [facility] [address] [place] [address] Dr. Idania Roldan CBC AUTO DIFFon 09-30-2022 BASO # 0.0 103/ul Normal 0.0-0.1 [facility] Comment on above: Performed By: #### C BC #### [facility] [address] [place] [address] Dr. Idania Roldan Basophils/100 WBC (Bld) 0.3 % Normal 0.2-2.0 [facility] Comment on above: Performed By: #### C BC #### [facility] [address] [place] [address] Dr. Idania Roldan EO # 0.1 103/ul Normal 0.0-0.7 [facility] Comment on above: Performed By: #### C BC #### [facility] [address] [place] [address] Dr. Idania Roldan Eosinophils/100 WBC (Bld) 1.2 % Normal 0.9-7.0 [facility] Comment on above: Performed By: #### C BC #### [facility] [address] [place] [address] Dr. Idania Roldan Erythrocyte distribution width (RBC) [Ratio] 14.8 % Normal 11.0-15.0 [facility] Comment on above: Performed By: #### C BC #### [facility] [address] [place] [address] Dr. Idania Roldan Hematocrit (Bld) [Volume fraction] 31.8 % Critically low 36.0-48.0 [facility] Comment on above: Performed By: #### C BC #### [facility] [address] [place] [address] Dr. Idania Roldan Hemoglobin (Bld) [Mass/Vol] 9.6 g/dL Critically low 12.0-16.0 [facility] Comment on above: Performed By: #### C BC #### [facility] [address] [place] [address] Dr. Idania Roldan IG # 0.01 10e3/ul Normal 0.00-0.03 [facility] Comment on above: Performed By: #### C BC #### [facility] [address] [place] [address] Dr. Idania Roldan IG % 0.1 % Normal 0.0-0.5 [facility] Comment on above: Performed By: #### C BC #### [facility] [address] [place] [address] Dr. Idania Roldan LYMPH # 3.3 103/ul Normal 1.2-3.8 [facility] Comment on above: Performed By: #### C BC #### [facility] [address] [place] [address] Dr. Idania Roldan Lymphocytes/100 WBC (Bld) 45.4 % Normal 20.5-60.0 [facility] Comment on above: Performed By: #### C BC #### [facility] [address] [place] [address] Dr. Idania Roldan MANUAL DIFF REQ NO Normal [facility] Comment on above: Performed By: #### C BC #### [facility] [address] [place] [address] Dr. Idania Roldan MCH (RBC) [Entitic mass] 22.7 pg Critically low 26.7-34.0 [facility] Comment on above: Performed By: #### C BC #### [facility] [address] [address] [address] Idania Roldan MCHC (RBC) [Mass/Vol] 30.2 g/dL Normal 29.9-35.2 [facility] Comment on above: Performed By: #### C BC #### [facility] [address] [address] [address] Idania Roldan MCV (RBC) [Entitic vol] 75.4 fL Critically low 81.0-99.0 [facility] Comment on above: Performed By: #### C BC #### [facility] [address] [place] [address] Dr. Idania Roldan MONO # 0.5 103/ul Normal 0.3-0.8 [facility] Comment on above: Performed By: #### C BC #### [facility] [address] [place] [address] Dr. Idania Roldan Monocytes/100 WBC (Bld) 6.2 % Normal 1.7-12.0 [facility] Comment on above: Performed By: #### C BC #### [facility] [address] [place] [address] Dr. Idania Roldan NEUT # 3.4 103/ul Normal 1.4-6.5 [facility] Comment on above: Performed By: #### C BC #### [facility] [address] [place] [address] Dr. Idania Roldan Neutrophils/100 WBC (Bld) 46.8 % Normal 43.0-75.0 [facility] Comment on above: Performed By: #### C BC #### [facility] [address] [address] [address] Idania Roldan Platelet mean volume (Bld) [Entitic vol] 8.5 fL Critically low 9.5-13.5 [facility] Comment on above: Performed By: #### C BC #### [facility] [address] [address] [address] Idania Roldan PLT 273 103/ul Normal 150-450 [facility] Comment on above: Performed By: #### C BC #### [facility] [address] [place] [address] Dr. Idania Roldan RBC 4.22 106/ul Normal 4.20-5.40 [facility] Comment on above: Performed By: #### C BC #### [facility] [address] [place] [address] Dr. Idania Roldan WBC 7.2 103/ul Normal 4.0-11.0 [facility] Comment on above: Performed By: #### C BC #### [facility] [address] [place] [address] Dr. Idania Roldan CULTURE URINEon 09-30-2022 CULTURE URINE Culture Observations : MODERATE GROWTH OF MIXED GENITAL ALE. NO POTENTIAL PATHOGENS SEEN. Normal [facility] Comment on above: Performed By: #### P T, PTT #### [facility] [address] [place] [address] Dr. Idania Roldan LIPASEon 09-30-2022 Lipase [Catalytic activity/Vol] 256.0 U/L Normal 73.0-393.0 [facility] Comment on above: Performed By: #### B MP, LIPA, YVETTE, LIVER #### [facility] [address] [place] [address] Dr. Idania Roldan PROF 14(COMP METB)on 022 Albumin [Mass/Vol] 4.1 g/dL Normal 3.4-5.0 [facility] Comment on above: Performed By: #### B MP, LIPA, YVETTE, LIVER #### [facility] [address] [place] [address] Dr. Idania Roldan Albumin/Globulin [Mass ratio] 1.0 {ratio} Normal [facility] Comment on above: Performed By: #### B MP, LIPA, YVETTE, LIVER #### [facility] [address] [place] [address] Dr. Idania Roldan ALP [Catalytic activity/Vol] 93 U/L Normal 46-116 [facility] Comment on above: Performed By: #### B MP, LIPA, YVETTE, LIVER #### [facility] [address] [address] [address] Idania Roldan ALT [Catalytic activity/Vol] 13 U/L Critically low 14-59 [facility] Comment on above: Performed By: #### B MP, LIPA, YVETTE, LIVER #### [facility] [address] [address] [address] Idania Roldan Anion gap [Moles/Vol] 9.8 mmol/L Normal [facility] Comment on above: Performed By: #### B MP, LIPA, YVETTE, LIVER #### [facility] [address] [place] [address] Dr. Idania Roldan AST [Catalytic activity/Vol] 12 U/L Critically low 15-37 [facility] Comment on above: Performed By: #### B MP, LIPA, YVETTE, LIVER #### [facility] [address] [place] [address] Dr. Idania Roldan Bilirubin [Mass/Vol] 0.2 mg/dL Normal 0.2-1.0 [facility] Comment on above: Performed By: #### B MP, LIPA, YVETTE, LIVER #### [facility] [address] [place] [address] Dr. Idania Roldan Calcium [Mass/Vol] 9.2 mg/dL Normal 8.5-10.1 [facility] Comment on above: Performed By: #### B MP, LIPA, YVETTE, LIVER #### [facility] [address] [address] [address] Idania Roldan Chloride [Moles/Vol] 101 mmol/L Normal 98-107 [facility] Comment on above: Performed By: #### B MP, LIPA, YVETTE, LIVER #### [facility] [address] [place] [address] Dr. Idania Roldan CO2 [Moles/Vol] 31.8 mmol/L Normal 21.0-32.0 [facility] Comment on above: Performed By: #### B MP, LIPA, YVETTE, LIVER #### [facility] [address] [address] [address] Idania Roldan Creatinine [Mass/Vol] 0.71 mg/dL Normal 0.55-1.02 [facility] Comment on above: Performed By: #### B MP, LIPA, YVETTE, LIVER #### [facility] [address] [place] [address] Dr. Idania Roldan EGFR-AF ISRAELI >60 Normal >=60 [facility] Comment on above: Performed By: #### B MP, LIPA, YVETTE, LIVER #### [facility] [address] [place] [address] Dr. Idania Roldan EGFR-NON AF ISRAELI >60 Normal >=60 [facility] Comment on above: Performed By: #### B MP, LIPA, YVETTE, LIVER #### [facility] [address] [place] [address] Dr. Idania Roldan Globulin (S) [Mass/Vol] 4.0 g/dL Normal [facility] Comment on above: Performed By: #### B MP, LIPA, YVETTE, LIVER #### [facility] [address] [place] [address] Dr. Idania Roldan Glucose [Mass/Vol] 92 mg/dL Normal 74-106 [facility] Comment on above: Performed By: #### B MP, LIPA, YVETTE, LIVER #### [facility] [address] [place] [address] Dr. Idania Roldan Potassium [Moles/Vol] 3.6 mmol/L Normal 3.5-5.1 [facility] Comment on above: Performed By: #### B MP, LIPA, YVETTE, LIVER #### [facility] [address] [place] [address] Dr. Idania Roldan Protein [Mass/Vol] 8.1 g/dL Normal 6.4-8.2 [facility] Comment on above: Performed By: #### B MP, LIPA, YVETTE, LIVER #### [facility] [address] [place] [address] Dr. Idania Roldan Sodium [Moles/Vol] 139 mmol/L Normal 136-145 [facility] Comment on above: Performed By: #### B MP, LIPA, YVETTE, LIVER #### [facility] [address] [place] [address] Dr. Idania Roldan Urea nitrogen [Mass/Vol] 15.0 mg/dL Normal 7.0-18.0 [facility] Comment on above: Performed By: #### B MP, LIPA, YVETTE, LIVER #### [facility] [address] [place] [address] Dr. Idania Roldan Urea nitrogen/Creatinine [Mass ratio] 21.1 mg/mg Normal [facility] Comment on above: Performed By: #### B MP, LIPA, YVETTE, LIVER #### [facility] [address] [place] [address] Dr. Idania Roldan UA RANDOM W/MICROSCOPICon BACTERIA SMALL Abnormal NONE SEEN [facility] Comment on above: Performed By: #### B MP, LIPA, YVETTE, LIVER #### [facility] [address] [place] [address] Dr. Idania Roldan Bilirubin Ql (U) Negative Normal NEGATIVE [facility] Comment on above: Performed By: #### B MP, LIPA, YVETTE, LIVER #### [facility] [address] [place] [address] Dr. Idania Roldan CAST NONE SEEN Normal NONE SEEN [facility] Comment on above: Performed By: #### B MP, LIPA, YVETTE, LIVER #### [facility] [address] [place] [address] Dr. Idania Roldan Clarity (U) CLEAR Normal CLEAR [facility] Comment on above: Performed By: #### B MP, LIPA, YVETTE, LIVER #### [facility] [address] [place] [address] Dr. Idania Roldan Color (U) YELLOW Normal YELLOW [facility] Comment on above: Performed By: #### B MP, LIPA, YVETTE, LIVER #### [facility] [address] [place] [address] Dr. Idania Roldan Crystals LM Nom (Urine sed) NONE SEEN Normal NONE SEEN [facility] Comment on above: Performed By: #### B MP, LIPA, YVETTE, LIVER #### [facility] [address] [address] [address] Idania Roldan Epithelial cells LM Ql (Urine sed) FEW Abnormal NONE SEEN /RARE [facility] Comment on above: Performed By: #### B MP, LIPA, YVETTE, LIVER #### [facility] [address] [place] [address] Dr. Idania Roldan Glucose Ql (U) Negative Normal NEGATIVE [facility] Comment on above: Performed By: #### B MP, LIPA, YVETTE, LIVER #### [facility] [address] [address] [address] Idania Roldan Hemoglobin Ql (U) Negative Normal NEGATIVE [facility] Comment on above: Performed By: #### B MP, LIPA, YVETTE, LIVER #### [facility] [address] [place] [address] Dr. Idania Roldan Ketones Ql (U) Negative Normal NEGATIVE [facility] Comment on above: Performed By: #### B MP, LIPA, YVETTE, LIVER #### [facility] [address] [place] [address] Dr. Idania Roldan LEUKOCYTES SMALL Abnormal NEGATIVE [facility] Comment on above: Performed By: #### B MP, LIPA, YVETTE, LIVER #### [facility] [address] [place] [address] Dr. Idania Roldan MUCOUS TRACE Abnormal NONE SEEN [facility] Comment on above: Performed By: #### B MP, LIPA, YVETTE, LIVER #### [facility] [address] [place] [address] Dr. Idania Roldan Nitrite Ql (U) Negative Normal NEGATIVE [facility] Comment on above: Performed By: #### B MP, LIPA, YVETTE, LIVER #### [facility] [address] [place] [address] Dr. Idania Roldan pH (U) 7.0 [pH] Normal 5-9 [facility] Comment on above: Performed By: #### B MP, LIPA, YVETTE, LIVER #### [facility] [address] [place] [address] Dr. Idania oRldan RBC NONE SEEN Abnormal 0-2 [facility] Comment on above: Performed By: #### B MP, LIPA, YVETTE, LIVER #### [facility] [address] [address] [address] Idania Roldan SPEC GRAVITY 1.015 Normal 1.005-<=1.02 5 [facility] Comment on above: Performed By: #### B MP, LIPA, YVETTE, LIVER #### [facility] [address] [address] [address] Idania Roldan UA PROTEIN Negative Normal NEGATIVE/ TRACE [facility] Comment on above: Performed By: #### B MP, LIPA, YVETTE, LIVER #### [facility] [address] [address] [address] Idania Roldan Urobilinogen Qn (U) 0.2 {Bryan'U}/dL Normal 0.2 - 1. 0 [facility] Comment on above: Performed By: #### B MP, LIPA, YVETTE, LIVER #### [facility] [address] [place] [address] Dr. Idania Roldan WBC 5-10 Abnormal NONE SEEN [facility] Comment on above: Performed By: #### B MP, LIPA, YVETTE, LIVER #### [facility] [address] [place] [address] Dr. Idania Roldan [facility] SARS-CoV-2 (COVID-19) RNA MAMIE+probe Ql (Unsp spec) Not detected Normal NOT DETECTED [facility] Comment on above: Result Comment: This test is not yet approved or cleared by the [place] FDA. When there are no FDA-approved or cleared tests available, and other criteria are met, FDA can make tests available under an emergency access mechanism called an Emergency Use Authorization (EUA). The EUA for this test is supported by the [employer] Supervisor of Health and Human Service's (HHS's) [...] SARS-CoV-2. Performed By: #### C VDTB #### [facility] [address] [place] [address] Dr. Idania Roldan INFLUENZA A AND B AGon 09-21 [facility] SEE BELOW Normal [facility] Comment on above: Result Comment: Nega tive for Flu A protein angiten. Infection due to Flu A cannot be ruled out. Flu A angiten in the sample may be below the detection limit of the test. Performed By: #### B MP, LIPA, YVETTE, LIVER #### [facility] [address] [place] [address] Dr. Idania Roldan [facility] SEE BELOW Normal [facility] Comment on above: Result Comment: Nega tive for Flu B protein antigen. Infection due to Flu B cannot be ruled out. Flu B antigen in the sample may be below the detection limit of the test. Performed By: #### B MP, LIPA, YVETTE, LIVER #### [facility] [address] [place] [address] Dr. Idania Roldan INFLUENZA A AG Negative Normal NEGATIVE SEE COMMENT [facility] Comment on above: Performed By: #### B MP, LIPA, YVETTE, LIVER #### [facility] [address] [place] [address] Dr. Idania Roldan INFLUENZA B AG Negative Normal NEGATIVE SEE COMMENT [facility] Comment on above: Performed By: #### B MP, LIPA, YVETTE, LIVER #### [facility] [address] [place] [address] Dr. Idania Roldan INTERNAL CONTROLS Within Normal Limits Normal Wi thin Normal Limits [facility] Comment on above: Performed By: #### B MP, LIPA, YVETTE, LIVER #### [facility] [address] [place] [address] Dr. Idania Roldan Covid-19 PCR ([facility])on 08-11 SARS-CoV-2 (COVID-19) RNA MAMIE+probe Ql (Unsp spec) Not detected Normal NOT DETECTED [facility] Comment on above: Result Comment: This test is not yet approved or cleared by the [place] FDA. When there are no FDA-approved or cleared tests available, and other criteria are met, FDA can make tests available under an emergency access mechanism called an Emergency Use Authorization (EUA). The EUA for this test is supported by the [place] of Health and Human Service's (HHS's) declaration [...] #### B MP, LIPA, YVETTE, LIVER #### [facility] [address] [place] [address] Dr. Idania Roldan CBC AUTO DIFFon 08-21-2022 BASO # 0.0 103/ul Normal 0.0-0.1 [facility] Comment on above: Performed By: #### P T, PTT #### [facility] [address] [place] [address] Dr. Idania Roldan Basophils/100 WBC (Bld) 0.4 % Normal 0.2-2.0 [facility] Comment on above: Performed By: #### P T, PTT #### [facility] [address] [place] [address] Dr. Idania Roldan EO # 0.1 103/ul Normal 0.0-0.7 [facility] Comment on above: Performed By: #### P T, PTT #### [facility] [address] [place] [address] Dr. Idania Roldan Eosinophils/100 WBC (Bld) 1.3 % Normal 0.9-7.0 [facility] Comment on above: Performed By: #### P T, PTT #### [facility] [address] [place] [address] Dr. Idania Roldan Erythrocyte distribution width (RBC) [Ratio] 15.3 % Critically high 11.0-15.0 [facility] Comment on above: Performed By: #### P T, PTT #### [facility] [address] [place] [address] Dr. Idania Roldan Hematocrit (Bld) [Volume fraction] 32.1 % Critically low 36.0-48.0 [facility] Comment on above: Performed By: #### P T, PTT #### [facility] [address] [place] [address] Dr. Idania Roldan Hemoglobin (Bld) [Mass/Vol] 9.9 g/dL Critically low 12.0-16.0 [facility] Comment on above: Performed By: #### P T, PTT #### [facility] [address] [place] [address] Dr. Idania Roldan IG # 0.01 10e3/ul Normal 0.00-0.03 [facility] Comment on above: Performed By: #### P T, PTT #### [facility] [address] [place] [address] Dr. Idania Roldan IG % 0.1 % Normal 0.0-0.5 [facility] Comment on above: Performed By: #### P T, PTT #### [facility] [address] [place] [address] Dr. Idania Roldan LYMPH # 2.7 103/ul Normal 1.2-3.8 [facility] Comment on above: Performed By: #### P T, PTT #### [facility] [address] [place] [address] Dr. Idania Roldan Lymphocytes/100 WBC (Bld) 35.7 % Normal 20.5-60.0 [facility] Comment on above: Performed By: #### P T, PTT #### [facility] [address] [place] [address] Dr. Idania Roldan MANUAL DIFF REQ NO Normal [facility] Comment on above: Performed By: #### P T, PTT #### [facility] [address] [place] [address] Dr. Idania Roldan MCH (RBC) [Entitic mass] 24.8 pg Critically low 26.7-34.0 [facility] Comment on above: Performed By: #### P T, PTT #### [facility] [address] [place] [address] Dr. Idania Roldan MCHC (RBC) [Mass/Vol] 30.8 g/dL Normal 29.9-35.2 [facility] Comment on above: Performed By: #### P T, PTT #### [facility] [address] [place] [address] Dr. Idania Roldan MCV (RBC) [Entitic vol] 80.5 fL Critically low 81.0-99.0 [facility] Comment on above: Performed By: #### P T, PTT #### [facility] [address] [place] [address] Dr. Idania Roldan MONO # 0.5 103/ul Normal 0.3-0.8 [facility] Comment on above: Performed By: #### P T, PTT #### [facility] [address] [place] [address] Dr. Idania Roldan Monocytes/100 WBC (Bld) 6.1 % Normal 1.7-12.0 [facility] Comment on above: Performed By: #### P T, PTT #### [facility] [address] [place] [address] Dr. Idania Roldan NEUT # 4.2 103/ul Normal 1.4-6.5 [facility] Comment on above: Performed By: #### P T, PTT #### [facility] [address] [place] [address] Dr. Idania Roldan Neutrophils/100 WBC (Bld) 56.4 % Normal 43.0-75.0 [facility] Comment on above: Performed By: #### P T, PTT #### [facility] [address] [place] [address] Dr. Idania Roldan Platelet mean volume (Bld) [Entitic vol] 9.4 fL Critically low 9.5-13.5 [facility] Comment on above: Performed By: #### P T, PTT #### [facility] [address] [address] [address] Idania Roldan PLT 296 103/ul Normal 150-450 [facility] Comment on above: Performed By: #### P T, PTT #### [facility] [id number] Idania Roldan RBC 3.99 106/ul Critically low 4.20-5.40 [facility] Comment on above: Performed By: #### P T, PTT #### [facility] [id number] Idania Roldan WBC 7.5 103/ul Normal 4.0-11.0 [facility] Comment on above: Performed By: #### P T, PTT #### [facility] [address] [place] [address] ABD/PELV W CONon [...] RUSSELL DUFF Date: 2022-08-21 12:35 Normal [facility] ER URINE PROFILEon 2 Bilirubin Ql (U) Unable to perform te sting due to color interference. Abnormal NEGATIVE [facility] Comment on above: Performed By: #### B MP, LIPA, YVETTE, LIVER #### [facility] [address] [address] [address] Idania Roldan Clarity (U) TURBID Abnormal CLEAR [facility] Comment on above: Performed By: #### B MP, LIPA, YVETTE, LIVER #### [facility] [address] [address] [address] Idania Roldan Color (U) RED Abnormal YELLOW [facility] Comment on above: Performed By: #### B MP, LIPA, YVETTE, LIVER #### [facility] [address] [address] [address] Idania Roldan ERUAHD A micrscopic examina tion will be performed if indicated. Normal [facility] Comment on above: Performed By: #### B MP, LIPA, YVETTE, LIVER #### [facility] [address] [address] [address] Idania Roldan Glucose Ql (U) Unable to perform te sting due to color interference. Abnormal NEGATIVE [facility] Comment on above: Performed By: #### B MP, LIPA, YVETTE, LIVER #### [facility] [address] [address] [address] Idania Roldan Hemoglobin Ql (U) Unable to perform te sting due to color interference. Abnormal NEGATIVE [facility] Comment on above: Performed By: #### B MP, LIPA, YVETTE, LIVER #### [facility] [address] [address] [address] Idania Roldan Ketones Ql (U) Unable to perform te sting due to color interference. Abnormal NEGATIVE [facility] Comment on above: Performed By: #### B MP, LIPA, YVETTE, LIVER #### [facility] [address] [address] [address] Idania Roldan LEUKOCYTES Unable to perform te sting due to color interference. Abnormal NEGATIVE [facility] Comment on above: Performed By: #### B MP, LIPA, YVETTE, LIVER #### [facility] [address] [place] [address] Dr. Idania Roldan Nitrite Ql (U) Unable to perform te sting due to color interference. Abnormal NEGATIVE [facility] Comment on above: Performed By: #### B MP, LIPA, YVETTE, LIVER #### [facility] [address] [place] [address] Dr. Idania Roldan pH Unable to perform te sting due to color interference. Abnormal 5-9 [facility] Comment on above: Performed By: #### B MP, LIPA, YVETTE, LIVER #### [facility] [address] [place] [address] Dr. Idania Roldan SPEC GRAVITY 1.020 Normal 1.005-<=1.02 5 [facility] Comment on above: Performed By: #### B MP, LIPA, YVETTE, LIVER #### [facility] [address] [place] [address] Dr. Idania Roldan UA PROTEIN Unable to perform te sting due to color interference. Normal NEGATIVE/ TRACE [facility] Comment on above: Performed By: #### B MP, LIPA, YVETTE, LIVER #### [facility] [address] [place] [address] Dr. Idania Roldan UR MICRO IND INDICATED Normal [facility] Comment on above: Performed By: #### B MP, LIPA, YVETTE, LIVER #### [facility] [address] [place] [address] Dr. Idania Roldan UROBILINOGEN Unable to perform te sting due to color interference. Normal 0.2 - 1.0 [facility] Comment on above: Performed By: #### B MP, LIPA, YVETTE, LIVER #### [facility] [address] [place] [address] Dr. Idania Roldan PROF 14(COMP METB)on 022 Albumin [Mass/Vol] 4.2 g/dL Normal 3.4-5.0 [facility] Comment on above: Performed By: #### P T, PTT #### [facility] [address] [place] [address] Dr. Idania Roldan Albumin/Globulin [Mass ratio] 1.0 {ratio} Normal [facility] Comment on above: Performed By: #### P T, PTT #### [facility] [address] [address] [address] Idania Roldan ALP [Catalytic activity/Vol] 91 U/L Normal 46-116 [facility] Comment on above: Performed By: #### P T, PTT #### [facility] [address] [place] [address] Dr. Idania Roldan ALT [Catalytic activity/Vol] 15 U/L Normal 14-59 [facility] Comment on above: Performed By: #### P T, PTT #### [facility] [address] [place] [address] Dr. Idania Roldan Anion gap [Moles/Vol] 9.6 mmol/L Normal [facility] Comment on above: Performed By: #### P T, PTT #### [facility] [address] [place] [address] Dr. Idania Roldan AST [Catalytic activity/Vol] 14 U/L Critically low 15-37 [facility] Comment on above: Performed By: #### P T, PTT #### [facility] [address] [place] [address] Dr. Idania Roldan Bilirubin [Mass/Vol] 0.2 mg/dL Normal 0.2-1.0 [facility] Comment on above: Performed By: #### P T, PTT #### [facility] [address] [place] [address] Dr. Idania Roldan Calcium [Mass/Vol] 9.2 mg/dL Normal 8.5-10.1 [facility] Comment on above: Performed By: #### P T, PTT #### [facility] [address] [place] [address] Dr. Idania Roldan Chloride [Moles/Vol] 103 mmol/L Normal 98-107 [facility] Comment on above: Performed By: #### P T, PTT #### [facility] [address] [address] [address] Idania Roldan CO2 [Moles/Vol] 31.2 mmol/L Normal 21.0-32.0 [facility] Comment on above: Performed By: #### P T, PTT #### [facility] [address] [address] [address] Idania Roldan Creatinine [Mass/Vol] 0.76 mg/dL Normal 0.55-1.02 [facility] Comment on above: Performed By: #### P T, PTT #### [facility] [address] [place] [address] Dr. Idania Roldan EGFR-AF ISRAELI >60 Normal >=60 [facility] Comment on above: Performed By: #### P T, PTT #### [facility] [address] [address] [address] Idania Roldan EGFR-NON AF ISRAELI >60 Normal >=60 [facility] Comment on above: Performed By: #### P T, PTT #### [facility] [address] [place] [address] Dr. Idania Roldan Globulin (S) [Mass/Vol] 4.2 g/dL Normal [facility] Comment on above: Performed By: #### P T, PTT #### [facility] [address] [address] [address] Idania Roldan Glucose [Mass/Vol] 107 mg/dL Critically high 74-106 [facility] Comment on above: Performed By: #### P T, PTT #### [facility] [address] [address] [address] Idania Roldan Potassium [Moles/Vol] 3.8 mmol/L Normal 3.5-5.1 [facility] Comment on above: Performed By: #### P T, PTT #### [facility] [address] [address] [address] Idania Roldan Protein [Mass/Vol] 8.4 g/dL Critically high 6.4-8.2 T [facility] Comment on above: Performed By: #### P T, PTT #### [facility] [address] [place] [address] Dr. Idania Roldan Sodium [Moles/Vol] 140 mmol/L Normal 136-145 [facility] Comment on above: Performed By: #### P T, PTT #### [facility] [address] [place] [address] Dr. Idania Roldan Urea nitrogen [Mass/Vol] 12.0 mg/dL Normal 7.0-18.0 [facility] Comment on above: Performed By: #### P T, PTT #### [facility] [address] [place] [address] Dr. Idania Roldan Urea nitrogen/Creatinine [Mass ratio] 15.8 mg/mg Normal [facility] Comment on above: Performed By: #### P T, PTT #### [facility] [address] [place] [address] Dr. Idania Roldan URINE MICROSCOPIC ONLYon BACTERIA NONE SEEN Normal NONE SEEN [facility] Comment on above: Performed By: #### B MP, LIPA, YVETTE, LIVER #### [facility] [address] [place] [address] Dr. Idania Roldan Bacteria identified Cx Nom (U) NOT INDICATED Normal [facility] Comment on above: Performed By: #### B MP, LIPA, YVETTE, LIVER #### [facility] [address] [place] [address] Dr. Idania Roldan CAST NONE SEEN Normal NONE SEEN [facility] Comment on above: Performed By: #### B MP, LIPA, YVETTE, LIVER #### [facility] [address] [place] [address] Dr. Idania Roldan Crystals LM Nom (Urine sed) NONE SEEN Normal NONE SEEN [facility] Comment on above: Performed By: #### B MP, LIPA, YVETTE, LIVER #### [facility] [address] [place] [address] Dr. Idania Roldan Epithelial cells LM Ql (Urine sed) RARE Normal NONE SEEN /RARE [facility] Comment on above: Performed By: #### B MP, LIPA, YVETTE, LIVER #### [facility] [address] [place] [address] Dr. Idania Roldan MUCOUS NONE SEEN Normal NONE SEEN [facility] Comment on above: Performed By: #### B MP, LIPA, YVETTE, LIVER #### [facility] [address] [place] [address] Dr. Idania Roldan RBC (U) [#/Vol] /uL Abnormal 0-2 [facility] Comment on above: Performed By: #### B MP, LIPA, YVETTE, LIVER #### [facility] [address] [place] [address] Dr. Idania Roldan WBC 2-5 Abnormal NONE SEEN [facility] Comment on above: Performed By: #### B MP, LIPA, YVETTE, LIVER #### [facility] [address] [place] [address] Dr. Idania Roldan CBC AUTO DIFFon 08-19-2022 BASO # 0.0 103/ul Normal 0.0-0.1 [facility] Comment on above: Performed By: #### P T, PTT #### [facility] [address] [place] [address] Dr. Idania Roldan Basophils/100 WBC (Bld) 0.4 % Normal 0.2-2.0 [facility] Comment on above: Performed By: #### P T, PTT #### [facility] [address] [place] [address] Dr. Idania Roldan EO # 0.1 103/ul Normal 0.0-0.7 [facility] Comment on above: Performed By: #### P T, PTT #### [facility] [address] [place] [address] Dr. Idania Roldan Eosinophils/100 WBC (Bld) 2.0 % Normal 0.9-7.0 [facility] Comment on above: Performed By: #### P T, PTT #### [facility] [address] [place] [address] Dr. Idania Roldan Erythrocyte distribution width (RBC) [Ratio] 14.8 % Normal 11.0-15.0 [facility] Comment on above: Performed By: #### P T, PTT #### [facility] [address] [place] [address] Dr. Idania Roldan Hematocrit (Bld) [Volume fraction] 31.5 % Critically low 36.0-48.0 [facility] Comment on above: Performed By: #### P T, PTT #### [facility] [address] [place] [address] Dr. Idania Roldan Hemoglobin (Bld) [Mass/Vol] 9.5 g/dL Critically low 12.0-16.0 [facility] Comment on above: Performed By: #### P T, PTT #### [facility] [address] [place] [address] Dr. Idania Roldan IG # 0.01 10e3/ul Normal 0.00-0.03 [facility] Comment on above: Performed By: #### P T, PTT #### [facility] [address] [place] [address] Dr. Idania Roldan IG % 0.2 % Normal 0.0-0.5 [facility] Comment on above: Performed By: #### P T, PTT #### [facility] [address] [place] [address] Dr. Idania Roldan LYMPH # 1.4 103/ul Normal 1.2-3.8 [facility] Comment on above: Performed By: #### P T, PTT #### [facility] [address] [place] [address] Dr. Idania Roldan Lymphocytes/100 WBC (Bld) 29.9 % Normal 20.5-60.0 [facility] Comment on above: Performed By: #### P T, PTT #### [facility] [address] [place] [address] Dr. Idania Roldan MANUAL DIFF REQ NO Normal [facility] Comment on above: Performed By: #### P T, PTT #### [facility] [address] [place] [address] Dr. Idania Roldan MCH (RBC) [Entitic mass] 24.4 pg Critically low 26.7-34.0 [facility] Comment on above: Performed By: #### P T, PTT #### [facility] [address] [place] [address] Dr. Idania Roldan MCHC (RBC) [Mass/Vol] 30.2 g/dL Normal 29.9-35.2 [facility] Comment on above: Performed By: #### P T, PTT #### [facility] [address] [place] [address] Dr. Idania Roldan MCV (RBC) [Entitic vol] 80.8 fL Critically low 81.0-99.0 [facility] Comment on above: Performed By: #### P T, PTT #### [facility] [address] [place] [address] Dr. Idania Roldan MONO # 0.2 103/ul Critically low 0.3-0.8 [facility] Comment on above: Performed By: #### P T, PTT #### [facility] [address] [place] [address] Dr. Idania Roldan Monocytes/100 WBC (Bld) 5.2 % Normal 1.7-12.0 [facility] Comment on above: Performed By: #### P T, PTT #### [facility] [address] [place] [address] Dr. Idania Roldan NEUT # 2.9 103/ul Normal 1.4-6.5 [facility] Comment on above: Performed By: #### P T, PTT #### [facility] [address] [place] [address] Dr. Idania Roldan Neutrophils/100 WBC (Bld) 62.3 % Normal 43.0-75.0 [facility] Comment on above: Performed By: #### P T, PTT #### [facility] [address] [place] [address] Dr. Idania Roldan Platelet mean volume (Bld) [Entitic vol] 8.6 fL Critically low 9.5-13.5 [facility] Comment on above: Performed By: #### P T, PTT #### [facility] [address] [address] [address] Idania Roldan PLT 269 103/ul Normal 150-450 [facility] Comment on above: Performed By: #### P T, PTT #### [facility] [address] [place] [address] Dr. Idania Roldan RBC 3.90 106/ul Critically low 4.20-5.40 [facility] Comment on above: Performed By: #### P T, PTT #### [facility] [address] [place] [address] Dr. Idania Roldan WBC 4.6 103/ul Normal 4.0-11.0 [facility] Comment on above: Performed By: #### P T, PTT #### [facility] [address] [place] [address] Dr. Idania Roldan PROF CHEM 8 (BAS METB)on Anion gap [Moles/Vol] 9.0 mmol/L Normal [facility] Comment on above: Performed By: #### B MP, LIPA, YVETTE, LIVER #### [facility] [address] [place] [address] Dr. Idania Roldan Calcium [Mass/Vol] 9.1 mg/dL Normal 8.5-10.1 [facility] Comment on above: Performed By: #### B MP, LIPA, YVETTE, LIVER #### [facility] [address] [place] [address] Dr. Idania Roldan Chloride [Moles/Vol] 104 mmol/L Normal 98-107 [facility] Comment on above: Performed By: #### B MP, LIPA, YVETTE, LIVER #### [facility] [address] [place] [address] Dr. Idania Roldan CO2 [Moles/Vol] 31.5 mmol/L Normal 21.0-32.0 [facility] Comment on above: Performed By: #### B MP, LIPA, YVETTE, LIVER #### [facility] [address] [place] [address] Dr. Idania Roldan Creatinine [Mass/Vol] 0.59 mg/dL Normal 0.55-1.02 [facility] Comment on above: Performed By: #### B MP, LIPA, YVETTE, LIVER #### [facility] [address] [place] [address] Dr. Idania Roldan EGFR-AF ISRAELI >60 Normal >=60 [facility] Comment on above: Performed By: #### B MP, LIPA, YVETTE, LIVER #### [facility] [address] [place] [address] Dr. Idania Roldan EGFR-NON AF ISRAELI >60 Normal >=60 [facility] Comment on above: Performed By: #### B MP, LIPA, YVETTE, LIVER #### [facility] [address] [place] [address] Dr. Idania Roldan Glucose [Mass/Vol] 90 mg/dL Normal 74-106 [facility] Comment on above: Performed By: #### B MP, LIPA, YVETTE, LIVER #### [facility] [address] [place] [address] Dr. Idania Roldan Potassium [Moles/Vol] 4.5 mmol/L Normal 3.5-5.1 [facility] Comment on above: Performed By: #### B MP, LIPA, YVETTE, LIVER #### [facility] [address] [place] [address] Dr. Idania Roldan Sodium [Moles/Vol] 140 mmol/L Normal 136-145 [facility] Comment on above: Performed By: #### B MP, LIPA, YVETTE, LIVER #### [facility] [address] [place] [address] Dr. Idania Roldan Urea nitrogen [Mass/Vol] 8.0 mg/dL Normal 7.0-18.0 [facility] Comment on above: Performed By: #### B MP, LIPA, YVETTE, LIVER #### [facility] [address] [place] [address] Dr. Idania Roldan Urea nitrogen/Creatinine [Mass ratio] 13.6 mg/mg Normal [facility] Comment on above: Performed By: #### B MP, LIPA, YVETTE, LIVER #### [facility] [address] [place] [address] Dr. Idania Roldan PROTIMEon 08-19-2022 INR Coag (PPP) [Relative time] 0.93 {INR} Normal [facility] Comment on above: Performed By: #### B MP, LIPA, YVETTE, LIVER #### [facility] [address] [place] [address] Dr. Idania Roldan INR GUIDELINES SEE BELOW Normal [facility] Comment on above: Result Comment: TARUN RED INR: 2.0 - 3.0 CONDITIONS NOT LISTED BELOW 2.5 - 3.5 FOR PROSTHETIC HEART VALVE REPLACEMENT 2.5 - 3.5 RECURRENT THROMBOSIS Performed By: #### B MP, LIPA, YVETTE, LIVER #### [facility] [address] [place] [address] Dr. Idania Roldan PT Coag (PPP) [Time] 10.1 s Normal 9.0-11.6 [facility] Comment on above: Performed By: #### B MP, LIPA, YVETTE, LIVER #### [facility] [address] [place] [address] Dr. Idania Roldan PTTon 08-19-2022 aPTT Coag (Bld) [Time] 28.1 s Normal 22.3-36.2 [facility] Comment on above: Performed By: #### B MP, LIPA, YVETTE, LIVER #### [facility] [address] [place] [address] Dr. Idania Roldan [facility] SARS-CoV-2 (COVID-19) RNA MAMIE+probe Ql (Unsp spec) Not detected Normal NOT DETECTED [facility] Comment on above: Result Comment: This test is not yet approved or cleared by the [place] FDA. When there are no FDA-approved or cleared tests available, and other criteria are met, FDA can make tests available under an emergency access mechanism called an Emergency Use Authorization (EUA). The EUA for this test is supported by the [place] of Health and Human Service's (HHS's) declaration [...] Performed By: #### P T, PTT #### [facility] [address] [place] [address] Dr. Idania Roldan CBC AUTO DIFFon 07-10-2022 BASO # 0.0 103/ul Normal 0.0-0.1 [facility] Comment on above: Performed By: #### P T, PTT #### [facility] [address] [place] [address] Dr. Idania Roldan Basophils/100 WBC (Bld) 0.2 % Normal 0.2-2.0 [facility] Comment on above: Performed By: #### P T, PTT #### [facility] [address] [place] [address] Dr. Idania Roldan EO # 0.1 103/ul Normal 0.0-0.7 [facility] Comment on above: Performed By: #### P T, PTT #### [facility] [address] [place] [address] Dr. Idania Roldan Eosinophils/100 WBC (Bld) 1.3 % Normal 0.9-7.0 [facility] Comment on above: Performed By: #### P T, PTT #### [facility] [address] [place] [address] Dr. Idania Roldan Erythrocyte distribution width (RBC) [Ratio] 16.4 % Critically high 11.0-15.0 [facility] Comment on above: Performed By: #### P T, PTT #### [facility] [address] [place] [address] Dr. Idania Roldan Hematocrit (Bld) [Volume fraction] 33.2 % Critically low 36.0-48.0 [facility] Comment on above: Performed By: #### P T, PTT #### [facility] [address] [place] [address] Dr. Idania Roldan Hemoglobin (Bld) [Mass/Vol] 10.3 g/dL Critically low 12.0-16.0 [facility] Comment on above: Performed By: #### P T, PTT #### [facility] [address] [place] [address] Dr. Idania Roldan IG # 0.01 10e3/ul Normal 0.00-0.03 [facility] Comment on above: Performed By: #### P T, PTT #### [facility] [address] [place] [address] Dr. Idania Roldan IG % 0.2 % Normal 0.0-0.5 [facility] Comment on above: Performed By: #### P T, PTT #### [facility] [address] [place] [address] Dr. Idania Roldan LYMPH # 1.8 103/ul Normal 1.2-3.8 [facility] Comment on above: Performed By: #### P T, PTT #### [facility] [address] [place] [address] Dr. Idania Roldan Lymphocytes/100 WBC (Bld) 38.8 % Normal 20.5-60.0 [facility] Comment on above: Performed By: #### P T, PTT #### [facility] [address] [place] [address] Dr. Idania Roldan MANUAL DIFF REQ NO Normal [facility] Comment on above: Performed By: #### P T, PTT #### [facility] [address] [place] [address] Dr. Idania Roldan MCH (RBC) [Entitic mass] 25.9 pg Critically low 26.7-34.0 [facility] Comment on above: Performed By: #### P T, PTT #### [facility] [address] [place] [address] Dr. Idania Roldan MCHC (RBC) [Mass/Vol] 31.0 g/dL Normal 29.9-35.2 [facility] Comment on above: Performed By: #### P T, PTT #### [facility] [address] [address] [address] Idania Roldan MCV (RBC) [Entitic vol] 83.4 fL Normal 81.0-99.0 [facility] Comment on above: Performed By: #### P T, PTT #### [facility] [address] [place] [address] Dr. Idania Roldan MONO # 0.3 103/ul Normal 0.3-0.8 [facility] Comment on above: Performed By: #### P T, PTT #### [facility] [address] [place] [address] Dr. Idania Roldan Monocytes/100 WBC (Bld) 6.1 % Normal 1.7-12.0 [facility] Comment on above: Performed By: #### P T, PTT #### [facility] [address] [place] [address] Dr. Idania Roldan NEUT # 2.5 103/ul Normal 1.4-6.5 [facility] Comment on above: Performed By: #### P T, PTT #### [facility] [address] [place] [address] Dr. Idania Roldan Neutrophils/100 WBC (Bld) 53.4 % Normal 43.0-75.0 [facility] Comment on above: Performed By: #### P T, PTT #### [facility] [address] [place] [address] Dr. Idania Roldan Platelet mean volume (Bld) [Entitic vol] 10.1 fL Normal 9.5-13.5 [facility] Comment on above: Performed By: #### P T, PTT #### [facility] [address] [place] [address] Dr. Idania Roldan PLT 239 103/ul Normal 150-450 [facility] Comment on above: Performed By: #### P T, PTT #### [facility] [address] [place] [address] Dr. Idania Roldan RBC 3.98 106/ul Critically low 4.20-5.40 [facility] Comment on above: Performed By: #### P T, PTT #### [facility] [address] [address] [address] Idania Roldan WBC 4.6 103/ul Normal 4.0-11.0 [facility] Comment on above: Performed By: #### P T, PTT #### [facility] [address] [address] [address] Idania Roldan PROF CHEM 8 (BAS METB)on Anion gap [Moles/Vol] 8.4 mmol/L Normal [facility] Comment on above: Performed By: #### B MP #### [facility] [address] [place] [address] Dr. Idania Roldan Calcium [Mass/Vol] 9.3 mg/dL Normal 8.5-10.1 [facility] Comment on above: Performed By: #### B MP #### [facility] [address] [address] [address] Idania Roldan Chloride [Moles/Vol] 103 mmol/L Normal 98-107 [facility] Comment on above: Performed By: #### B MP #### [facility] [address] [address] [address] Idania Roldan CO2 [Moles/Vol] 32.9 mmol/L Critically high 21.0-32.0 [facility] Comment on above: Performed By: #### B MP #### [facility] [address] [address] [address] Idania Roldan Creatinine [Mass/Vol] 0.70 mg/dL Normal 0.55-1.02 [facility] Comment on above: Performed By: #### B MP #### [facility] [address] [place] [address] Dr. Idania Roldan EGFR-AF ISRAELI >60 Normal >=60 [facility] Comment on above: Performed By: #### B MP #### [facility] [address] [address] [address] Idania Roldan EGFR-NON AF ISRAELI >60 Normal >=60 [facility] Comment on above: Performed By: #### B MP #### [facility] [address] [address] [address] Idania Roldan Glucose [Mass/Vol] 73 mg/dL Critically low 74-[address] [facility] Comment on above: Performed By: #### B MP #### [facility] [address] [address] [address] Idania Roldan Potassium [Moles/Vol] 4.3 mmol/L Normal 3.5-5.1 [facility] Comment on above: Performed By: #### B MP #### [facility] [address] [address] [address] Idania Roldan Sodium [Moles/Vol] 140 mmol/L Normal 136-145 [facility] Comment on above: Performed By: #### B MP #### [facility] [address] [address] [address] Idania Roldan Urea nitrogen [Mass/Vol] 16.0 mg/dL Normal 7.0-18.0 [facility] Comment on above: Performed By: #### B MP #### [facility] [address] [address] [address] Idania Roldan Urea nitrogen/Creatinine [Mass ratio] 22.9 mg/mg Normal [facility] Comment on above: Performed By: #### B MP #### [facility] [address] [address] [address] Idania Roldan PROTIMEon 07-10-2022 INR Coag (PPP) [Relative time] 1.00 {INR} Normal [facility] Comment on above: Performed By: #### P T, PTT #### [facility] [address] [address] [address] Idania Roldan INR GUIDELINES SEE BELOW Normal [facility] Comment on above: Result Comment: TARUN RED INR: 2.0 - 3.0 CONDITIONS NOT LISTED BELOW 2.5 - 3.5 FOR PROSTHETIC HEART VALVE REPLACEMENT 2.5 - 3.5 RECURRENT THROMBOSIS Performed By: #### P T, PTT #### [facility] [address] [address] [address] Idania Roldan PT Coag (PPP) [Time] 10.8 s Normal 9.0-11.6 [facility] Comment on above: Performed By: #### P T, PTT #### [facility] [address] [place], [place] [address] Dr. Idania Roldan PTTon 07-10-2022 aPTT Coag (Bld) [Time] 29.3 s Normal 22.3-36.2 [facility] Comment on above: Performed By: #### P T, PTT #### [facility] [address] [place], [place] [address] Dr. Idania Roldan Operative Reporton Operative Report MR#: [id number] I [facility] Pt. Name: Elvi Moore Room #: [id number] Discharge 06/01/2022 Date: Birthdate: 1980 OPERATIVE REPORT DATE OF SURGERY: 06/01/2022 SURGEON: Kevin Lane M.D. [employer] CONSULTANT: Duy Cavazos ANESTHESIA: General anesthesia. ESTIMATED BLOOD [...] arthrotomy was closed with soft #2 interrupted [id number] suture. The remainder of the incision closed in layered fashion. Sterile dressing applied. At the conclusion of the case, all sponge and needle counts correct. I was present for the critical portions of this case. Electronically Signed by: Kevin Lane M.D. 06/09/2022 07:[address] M.D. Date Dict: 06/03/2022/07:15 A/Kevin Lane M.D. Date Trans: 06/03/2022 08:09 A/taylor [id number] cc: Arleth Acharya M.D. [address], [facility] Christine [facility] [id number] Normal [facility] *ANAEROBIC CULTUREon 022 *ANAEROBIC CULTURE Clinical Report: (D) Specimen/Source: FLUID/INTRAOP SPEC Collected: 06/01/2022 14:08 Status: Final Last Updated: 06/06/2022 06:35 (1) 1. LEFT KNEE JOINT FLUID CULT RES (Final) No Anaerobes Isolated 5 Days Normal [facility] Comment on above: Order Comment: 1. LE FT KNEE JOINT FLUID Performed By: #### 3 0312 ####[facility] *ANAEROBIC CULTURE Clinical Report: (D) Specimen/Source: TISSUE/INTRAOP SPEC Collected: 06/01/2022 14:08 Status: Final Last Updated: 06/06/2022 06:35 (1) 2. LEFT KNEE MEDIAL SYNOVIUM CULT RES (Final) No Anaerobes Isolated 5 Days Normal [facility] Comment on above: Order Comment: 2. LE FT KNEE MEDIAL SYNOVIUM Performed By: #### 6 1405 #### [facility] [address] *ANAEROBIC CULTURE Clinical Report: (D) Specimen/Source: TISSUE/INTRAOP SPEC Collected: 06/01/2022 14:08 Status: Final Last Updated: 06/06/2022 06:35 (1) 3. LEFT KNEE LATERAL SYNOVIUM CULT RES (Final) No Anaerobes Isolated 5 Days Normal [facility] Comment on above: Order Comment: 3. LE FT KNEE LATERAL SYNOVIUM Performed By: #### 6 1405 #### [facility] [address] *BODY FLUID CULTUREon 2021 *BODY FLUID CULTURE Clinical Report: (D) Specimen/Source: FLUID/INTRAOP SPEC Collected: 06/01/2022 14:08 Status: Final Last Updated: 06/06/2022 06:39 (1) 1. LEFT KNEE JOINT FLUID GRAM (Final) Quantity Not Sufficient CULT RES (Final) No Growth Day 5 Normal [facility] Comment on above: Order Comment: 1. LE FT KNEE JOINT FLUID Performed By: #### 3 0318 ####[facility] *TISSUE CULTUREon 06-01-2022 *TISSUE CULTURE Clinical Report: (D) Specimen/Source: TISSUE/INTRAOP SPEC Collected: 06/01/2022 14:08 Status: Final Last Updated: 06/06/2022 06:40 (1) 2. LEFT KNEE MEDIAL SYNOVIUM GRAM (Final) Many Polys No Bacteria Seen CULT RES (Final) No Growth Day 5 Normal [facility] Comment on above: Order Comment: 2. LE FT KNEE MEDIAL SYNOVIUM Performed By: #### 3 0338 ####[facility] *TISSUE CULTURE Clinical Report: (D) Specimen/Source: TISSUE/INTRAOP SPEC Collected: 06/01/2022 14:08 Status: Final Last Updated: 06/06/2022 06:39 (1) 3. LEFT KNEE LATERAL SYNOVIUM GRAM (Final) Many Polys No Bacteria Seen CULT RES (Final) No Growth Day 5 Normal [facility] Comment on above: Order Comment: 3. LE FT KNEE LATERAL SYNOVIUM Performed By: #### 3 0338 ####[facility] POC GLUCOSE LABon 06-01-2022 Glucose [Mass/Vol] 86 mg/dL Normal 70-100 [facility] Comment on above: Performed By: #### 8 [id number] #### [place] [address], [facility] PORTABLE KNEE LEFT 2 VWSon 0 06-01-2022 PORTABLE KNEE LEFT 2 VWS [facility] Department of Radiology [address] [place] [address] [place] [address] Patient Name: ELVI MOORE : 1980 Sex: F Age: Race: White Pt. Location: OUTP Patient Status: D Ordered Date: 06/01/2022 3:05:00 PM Completed Date: 06/01/2022 04:06 PM Requesting Provider: ALVIN CAVAZOS Attending Provider: KEVIN LANE Report Copy To: Signs & Symptoms: Post OP History: Comments: Hardware Evaluation, in PACU Exam: PORTABLE KNEE LEFT 2 S PORTABLE KNEE LEFT 2 S 06/01/2022 4:06 [...] planned Electronically signed: Yvette Andrade. Transcribed by: [email or web address], User Resident: Electronically Signed by: YVETTE ANDRADE @ 06/02/2022 08:53 AM Normal [facility] Comment on above: Order Comment: Hardw are Evaluation, in PACU *MRSA/MSSA DNA NASALon 05-26 *MRSA/MSSA DNA NASAL Clinical Report: (D) Specimen: NASAL SWAB Collected: 05/26/2022 15:23 Status: Final Last Updated: 05/27/2022 13:43 MSSA DNA (Final) Negative MRSA DNA (Final) Negative Normal [facility] Comment on above: Performed By: #### 3 1595 #### [facility] [address] [place] [address], [facility] C REACTIVE PROTEINon 022 CRP [Mass/Vol] 1.3 mg/L Normal 0.0-7.0 [facility] Comment on above: Performed By: #### 6 1405 #### [facility] [address] [place] [address], [facility] CBC W/DIFFon 05-26-2022 ABS IMM GRANS 0.0 10*3/uL Normal 0.0-0.2 [facility] Comment on above: Performed By: #### 6 1405 #### [facility] [address] [place] [address], [facility] ABS NEUTROPHILS 2.5 10*3/uL Normal 1.6-7.6 [facility] Comment on above: Performed By: #### 6 1405 #### [facility] [address] [place] [address], [facility] Basophils (Bld) [#/Vol] 0.0 10*3/uL Normal 0.0-0.2 [facility] Comment on above: Performed By: #### 6 1405 #### [facility] [address] [place] [address], [facility] Basophils/100 WBC (Bld) 0.3 % Normal 0.0-1.0 [facility] Comment on above: Performed By: #### 6 1405 #### [facility] [address] Eosinophils (Bld) [#/Vol] 0.1 10*3/uL Normal 0.0-0.5 [facility] Comment on above: Performed By: #### 6 1405 #### [facility] [address] Eosinophils/100 WBC (Bld) 1.5 % Normal 0.0-6.0 [facility] Comment on above: Performed By: #### 6 1405 #### [facility] [address] Erythrocyte distribution width (RBC) [Ratio] 15.9 % High 11.5-15.0 [facility] Comment on above: Performed By: #### 6 1405 #### [facility] [address] Hematocrit (Bld) [Volume fraction] 35.0 % Low 36.0-45.0 [facility] Comment on above: Performed By: #### 6 1405 #### [facility] [address] Hemoglobin (Bld) [Mass/Vol] 10.6 g/dL Low 12.0-15.0 [facility] Comment on above: Performed By: #### 6 1405 #### [facility] [address] IMMATURE GRANS 0.2 % Normal 0.0-1.0 [facility] Comment on above: Performed By: #### 6 1405 #### [facility] [address] [place] [address], [facility] Lymphocytes (Bld) [#/Vol] 2.8 10*3/uL Normal 1.2-4.0 [facility] Comment on above: Performed By: #### 6 1405 #### [facility] [address] [place] [address], [facility] Lymphocytes/100 WBC (Bld) 48.0 % High 20.0-45.0 [facility] Comment on above: Performed By: #### 6 1405 #### [facility] [address] [place] [address], [facility] MCH (RBC) [Entitic mass] 24.5 pg Low 27.0-33.0 [facility] Comment on above: Performed By: #### 6 1405 #### [facility] [address] MCHC (RBC) [Mass/Vol] 30.3 g/dL Low 32.0-35.0 [facility] Comment on above: Performed By: #### 6 1405 #### [facility] [address] [place] [address], [facility] MCV (RBC) [Entitic vol] 81.0 fL Low 82.0-98.0 [facility] Comment on above: Performed By: #### 6 1405 #### [facility] [address] [place] [address], [facility] Monocytes (Bld) [#/Vol] 0.4 10*3/uL Normal 0.1-1.0 [facility] Comment on above: Performed By: #### 6 1405 #### [facility] [address] [place] [address], [facility] MONOS 6.8 % Normal 5.0-12.0 [facility] Comment on above: Performed By: #### 6 1405 #### [facility] [address] [place] [address], [facility] Neutrophils/100 WBC (Bld) 43.2 % Normal 40.0-72.0 [facility] Comment on above: Performed By: #### 6 1405 #### [facility] [address] [place] [address], [facility] Nucleated RBC/100 WBC (Bld) [Ratio] 0 % Normal 0-0 [facility] Comment on above: Performed By: #### 6 1405 #### [facility] [address] [place] [address], [facility] PLAT CNT 246 10*3/uL Normal 150-400 [facility] Comment on above: Performed By: #### 6 1405 #### [facility] [address] [place] [address], [facility] RBC (Bld) [#/Vol] 4.32 10*6/uL Normal 3.80-5.00 [facility] Comment on above: Performed By: #### 6 1405 #### [facility] [address] [place] [address], [facility] WBC (Bld) [#/Vol] 5.87 10*3/uL Normal 4.00-10.60 [facility] Comment on above: Performed By: #### 6 1405 #### [facility] [address] [place] [address], [facility] HEMOGLOBIN A1Con 05-26-2022 Glucose [Moles/Vol] 100 mmol/L Normal [facility] Comment on above: Performed By: #### 3 1791 #### [facility] [address] [place] [address], [facility] HbA1c (Bld) [Mass fraction] 5.1 % Normal 4.0-6.0 [facility] Comment on above: Performed By: #### 3 1791 #### [facility] [address] [place] [address], [facility] SEDIMENTATION RATEon 022 SED RATE 17 mm/hr Normal 0-20 [facility] Comment on above: Performed By: #### 6 1405 #### [facility] [address] US KIDNEYS BLADDERon 05-02-2 022 US KIDNEYS [...] RUSSELL DUFF Date: 2022-05-02 16:18 Normal [facility] CBC AUTO DIFFon 04-29-2022 BASO # 0.0 103/ul Normal 0.0-0.1 [facility] Comment on above: Performed By: #### B MP, LIPA, YVETTE, LIVER #### [facility] [address] [place] [address] Dr. Idania Roldan Basophils/100 WBC (Bld) 0.3 % Normal 0.2-2.0 [facility] Comment on above: Performed By: #### B MP, LIPA, YVETTE, LIVER #### [facility] [address] [address] [address] Idania Roldan EO # 0.1 103/ul Normal 0.0-0.7 [facility] Comment on above: Performed By: #### B MP, LIPA, YVETTE, LIVER #### [facility] [address] [address] [address] Idania Roldan Eosinophils/100 WBC (Bld) 0.9 % Normal 0.9-7.0 [facility] Comment on above: Performed By: #### B MP, LIPA, YVETTE, LIVER #### [facility] [address] [place] [address] Dr. Idania Roldan Erythrocyte distribution width (RBC) [Ratio] 15.4 % Critically high 11.0-15.0 [facility] Comment on above: Performed By: #### B MP, LIPA, YVETTE, LIVER #### [facility] [address] [place] [address] Dr. Idania Roldan Hematocrit (Bld) [Volume fraction] 36.0 % Normal 36.0-48.0 [facility] Comment on above: Performed By: #### B MP, LIPA, YVETTE, LIVER #### [facility] [address] [place] [address] Dr. Idania Roldan Hemoglobin (Bld) [Mass/Vol] 11.2 g/dL Critically low 12.0-16.0 [facility] Comment on above: Performed By: #### B MP, LIPA, YVETTE, LIVER #### [facility] [address] [place] [address] Dr. Idania Roldan IG # 0.02 10e3/ul Normal 0.00-0.03 [facility] Comment on above: Performed By: #### B MP, LIPA, YVETTE, LIVER #### [facility] [address] [place] [address] Dr. Idania Roldan IG % 0.3 % Normal 0.0-0.5 [facility] Comment on above: Performed By: #### B MP, LIPA, YVETTE, LIVER #### [facility] [address] [place] [address] Dr. Idania Roldan LYMPH # 2.5 103/ul Normal 1.2-3.8 [facility] Comment on above: Performed By: #### B MP, LIPA, YVETTE, LIVER #### [facility] [address] [place] [address] Dr. Idania Roldan Lymphocytes/100 WBC (Bld) 36.2 % Normal 20.5-60.0 [facility] Comment on above: Performed By: #### B MP, LIPA, YVETTE, LIVER #### [facility] [address] [place] [address] Dr. Idania Roldan MANUAL DIFF REQ NO Normal [facility] Comment on above: Performed By: #### B MP, LIPA, YVETTE, LIVER #### [facility] [address] [place] [address] Dr. Idania Roldan MCH (RBC) [Entitic mass] 24.9 pg Critically low 26.7-34.0 [facility] Comment on above: Performed By: #### B MP, LIPA, YVETTE, LIVER #### [facility] [address] [place] [address] Dr. Idania Roldan MCHC (RBC) [Mass/Vol] 31.1 g/dL Normal 29.9-35.2 [facility] Comment on above: Performed By: #### B MP, LIPA, YVETTE, LIVER #### [facility] [address] [place] [address] Dr. Idania Roldan MCV (RBC) [Entitic vol] 80.2 fL Critically low 81.0-99.0 [facility] Comment on above: Performed By: #### B MP, LIPA, YVETTE, LIVER #### [facility] [address] [place] [address] Dr. Idania Roldan MONO # 0.5 103/ul Normal 0.3-0.8 [facility] Comment on above: Performed By: #### B MP, LIPA, YVETTE, LIVER #### [facility] [address] [place] [address] Dr. Idania Roldan Monocytes/100 WBC (Bld) 6.7 % Normal 1.7-12.0 [facility] Comment on above: Performed By: #### B MP, LIPA, YVETTE, LIVER #### [facility] [address] [place] [address] Dr. Idania Roldan NEUT # 3.8 103/ul Normal 1.4-6.5 [facility] Comment on above: Performed By: #### B MP, LIPA, YVETTE, LIVER #### [facility] [address] [place] [address] Dr. Idania Roldan Neutrophils/100 WBC (Bld) 55.6 % Normal 43.0-75.0 [facility] Comment on above: Performed By: #### B MP LIPA, YVETTE, LIVER #### [facility] [address] [place] [address] Dr. Idania Roldan Platelet mean volume (Bld) [Entitic vol] 9.9 fL Normal 9.5-13.5 [facility] Comment on above: Performed By: #### B MP LIPA, YVETTE, LIVER #### [facility] [address] [place] [address] Dr. Idania Roldan PLT 265 103/ul Normal 150-450 [facility] Comment on above: Performed By: #### B MP LIPA, YVETTE, LIVER #### [facility] [address] [place] [address] Dr. Idania Roldan RBC 4.49 106/ul Normal 4.20-5.40 [facility] Comment on above: Performed By: #### B MP LIPA, YVETTE, LIVER #### [facility] [address] [place] [address] Dr. Idania Roldan WBC 6.8 103/ul Normal 4.0-11.0 [facility] Comment on above: Performed By: #### B MP LIPA, YVETTE, LIVER #### [facility] [address] [place] [address] Dr. Idania Roldan ER URINE PROFILEon 2 Bilirubin Ql (U) Negative Normal NEGATIVE [facility] Comment on above: Performed By: #### P T, PTT #### [facility] [address] [place] [address] Dr. Idania Roldan Clarity (U) CLEAR Normal CLEAR [facility] Comment on above: Performed By: #### P T, PTT #### [facility] [address] [place] [address] Dr. Idania Roldan Color (U) LT. YELLOW Normal YELLOW [facility] Comment on above: Performed By: #### P T, PTT #### [facility] [address] [place] [address] Dr. Idania MENDOSA A micrscopic examina tion will be performed if indicated. Normal [facility] Comment on above: Performed By: #### P T, PTT #### [facility] [address] [place] [address] Dr. Idania Roldan Glucose Ql (U) Negative Normal NEGATIVE [facility] Comment on above: Performed By: #### P T, PTT #### [facility] [address] [place] [address] Dr. Idania Roldan Hemoglobin Ql (U) LARGE Abnormal NEGATIVE [facility] Comment on above: Performed By: #### P T, PTT #### [facility] [address] [place] [address] Dr. Idania Roldan Ketones Ql (U) Negative Normal NEGATIVE [facility] Comment on above: Performed By: #### P T, PTT #### [facility] [address] [place] [address] Dr. Idania Roldan LEUKOCYTES TRACE Abnormal NEGATIVE [facility] Comment on above: Performed By: #### P T, PTT #### [facility] [address] [place] [address] Dr. Idania Roldan Nitrite Ql (U) Negative Normal NEGATIVE [facility] Comment on above: Performed By: #### P T, PTT #### [facility] [address] [place] [address] Dr. Idania Roldan pH (U) 6.0 [pH] Normal 5-9 [facility] Comment on above: Performed By: #### P T, PTT #### [facility] [address] [place] [address] Dr. Idania Roldan SPEC GRAVITY 1.010 Normal 1.005-<=1.02 5 [facility] Comment on above: Performed By: #### P T, PTT #### [facility] [address] [place] [address] Dr. Idania Roldan UA PROTEIN Negative Normal NEGATIVE/ TRACE [facility] Comment on above: Performed By: #### P T, PTT #### [facility] [address] [place] [address] Dr. Idania Roldan UR MICRO IND INDICATED Normal [facility] Comment on above: Performed By: #### P T, PTT #### [facility] [address] [place] [address] Dr. Idania Roldan Urobilinogen Qn (U) 0.2 {Bryan'U}/dL Normal 0.2 - 1. 0 [facility] Comment on above: Performed By: #### P T, PTT #### [facility] [address] [place] [address] Dr. Idania Roldan PROF CHEM 8 (BAS METB)on Anion gap [Moles/Vol] 10.9 mmol/L Normal [facility] Comment on above: Performed By: #### P T, PTT #### [facility] [address] [place] [address] Dr. Idania Roldan Calcium [Mass/Vol] 8.9 mg/dL Normal 8.5-10.1 [facility] Comment on above: Performed By: #### P T, PTT #### [facility] [address] [place] [address] Dr. Idania Roldan Chloride [Moles/Vol] 104 mmol/L Normal 98-107 [facility] Comment on above: Performed By: #### P T, PTT #### [facility] [address] [place] [address] Dr. Idania Roldan CO2 [Moles/Vol] 28.9 mmol/L Normal 21.0-32.0 [facility] Comment on above: Performed By: #### P T, PTT #### [facility] [address] [place] [address] Dr. Idania Roldan Creatinine [Mass/Vol] 0.71 mg/dL Normal 0.55-1.02 [facility] Comment on above: Performed By: #### P T, PTT #### [facility] [address] [place] [address] Dr. Idania Roldan EGFR-AF ISRAELI >60 Normal >=60 [facility] Comment on above: Performed By: #### P T, PTT #### [facility] [address] [place] [address] Dr. Idania Roldan EGFR-NON AF ISRAELI >60 Normal >=60 [facility] Comment on above: Performed By: #### P T, PTT #### [facility] [address] [place] [address] Dr. Idania Roldan Glucose [Mass/Vol] 88 mg/dL Normal 74-106 [facility] Comment on above: Performed By: #### P T, PTT #### [facility] [address] [place] [address] Dr. Idania Roldan Potassium [Moles/Vol] 3.8 mmol/L Normal 3.5-5.1 [facility] Comment on above: Performed By: #### P T, PTT #### [facility] [address] [place] [address] Dr. Idania Roldan Sodium [Moles/Vol] 140 mmol/L Normal 136-145 [facility] Comment on above: Performed By: #### P T, PTT #### [facility] [address] [place] [address] Dr. Idania Roldan Urea nitrogen [Mass/Vol] 13.0 mg/dL Normal 7.0-18.0 [facility] Comment on above: Performed By: #### P T, PTT #### [facility] [address] [place] [address] Dr. Idania Roldan Urea nitrogen/Creatinine [Mass ratio] 18.3 mg/mg Normal [facility] Comment on above: Performed By: #### P T, PTT #### [facility] [address] [place] [address] Dr. Idania Roldan URINE MICROSCOPIC ONLYon BACTERIA NONE SEEN Normal NONE SEEN [facility] Comment on above: Performed By: #### P T, PTT #### [facility] [address] [place] [address] Dr. Idania Roldan Bacteria identified Cx Nom (U) NOT INDICATED Normal [facility] Comment on above: Performed By: #### P T, PTT #### [facility] [address] [place] [address] Dr. Idania Roldan CAST NONE SEEN Normal NONE SEEN [facility] Comment on above: Performed By: #### P T, PTT #### [facility] [address] [address] [address] Idania Roldan Crystals LM Nom (Urine sed) NONE SEEN Normal NONE SEEN [facility] Comment on above: Performed By: #### P T, PTT #### [facility] [address] [address] [address] Idania Roldan Epithelial cells LM Ql (Urine sed) FEW Abnormal NONE SEEN /RARE [facility] Comment on above: Performed By: #### P T, PTT #### [facility] [address] [place] [address] Dr. Idania Roldan MUCOUS NONE SEEN Normal NONE SEEN [facility] Comment on above: Performed By: #### P T, PTT #### [facility] [address] [place] [address] Dr. Idania Roldan RBC 50-75 Abnormal 0-2 [facility] Comment on above: Performed By: #### P T, PTT #### [facility] [address] [place] [address] Dr. Idania Roldan WBC 0-2 Abnormal NONE SEEN [facility] Comment on above: Performed By: #### P T, PTT #### [facility] [address] [place] [address] Dr. Idania Roldan XR ABD FLAT UP_PA [...] by: RUSSELL DUFF Date: 2022-04-29 13:37 Normal [facility] US KIDNEYS BLADDERon 022 US KIDNEYS BLADDER EXAMINATION: US ANEUDY SERRA BLADDER HISTORY: Kidney stone , left flank [...] RUSSELL DUFF Date: 2022-04-16 18:24 Normal [facility] [facility] LOWER EXTREMITY WO CONTRA ST LEFTon 04-07-2022 CT LOWER EXTREMITY WO CONTRAST LEFT [facility] Department of Radiology [address] [place] [id number] Patient Name: ELVI MOORE : 1980 [...] arthroplasty. Electronically signed: Elvis Perez. Transcribed by: [email or web address], User Resident: Electronically Signed by: ELVIS PEREZ @ 04/12/2022 09:46 AM Normal [facility] Comment on above: Order Comment: , lef t knee C REACTIVE PROTEINon 022 CRP [Mass/Vol] 2.2 mg/L Normal 0.0-7.0 [facility] Comment on above: Performed By: #### 3 1791 #### [id number] [place] [address] SEDIMENTATION RATEon 022 SED RATE 30 mm/hr High 0-20 [facility] Comment on above: Performed By: #### 5 6506 #### [address] [address] KNEE LEFT 1 OR 2 VWSon 02-12 KNEE LEFT 1 OR 2 VWS [facility] Department of Radiology [address] [place] [phone] Patient Name: ELVI MOORE : 1980 Sex: [...] report. Electronically signed: Sathya Christianson. Transcribed by: [email or web address], User Resident: Electronically Signed by: SATHYA CHRISTIANSON @ 02/13/2022 10:48 PM Normal [facility] Comment on above: Order Comment: LT KN EE REANNA Operative Reporton 2 Operative Report MR#: [id number] S [facility] Pt. Name: Elvi Moore Room #: 0C Discharge Date: Birthdate: 1980 OPERATIVE REPORT DATE OF SURGERY: 02/12/2022 SURGEON: Kevin Lane M.D. [employer] SALES CONSULTANT: None. PREOPERATIVE DIAGNOSIS: Left total knee arthroplasty [...] Kevin Lane M.D. Date Dict: 02/12/2022/07:21 A/Kevin Laen M.D. Date Trans: 02/12/2022 09:35 A/taylor [id number] cc: Arleth Acharya M.D. [address], [facility] [phone] Normal [facility] POC GLUCOSE LABon 02-12-2022 Glucose [Mass/Vol] 96 mg/dL Normal 70-100 [facility] Comment on above: Performed By: #### 8 5499 ####[facility] [facility] C REACTIVE PROTEINon 022 CRP [Mass/Vol] 1.7 mg/L Normal 0.0-7.0 [facility] Comment on above: Performed By: #### 6 1405 #### [facility] [address] [facility]. [address] SEDIMENTATION RATEon 022 SED RATE 18 mm/hr Normal 0-20 [facility] Comment on above: Performed By: #### 6 1405 #### [facility] [address] [facility]. [address] KNEE LEFT 3 VWSon 12-26-2021 KNEE LEFT 3 S [facility] Department of Radiology [address] [place] [phone] Patient Name: ELVI MOORE : 1980 Sex: F Age: Race: White Pt. Location: Patient Status: Ordered Date: 12/26/2021 1:45:00 PM Completed Date: 12/26/2021 01:50 PM Requesting Provider: JORDEN BRODY Attending Provider: Report Copy To: Signs & Symptoms: Z47.1 Aftercare following joint replacement surgery I10 History: Tiffany Comments: , , , Ordering Provider - JORDEN BRODY HEAD WOOD GRINDER , Exam: KNEE LEFT 3 VWS KNEE [...] report. Electronically signed: Yvette Desai. Transcribed by: [email or web address], User Resident: CHRISTELLE ABDI Electronically Signed by: YVETTE DESAI @ 12/26/2021 04:27 PM I personally read this/these film(s) with this resident Normal [facility] Comment on above: Order Comment: , , = ========= , Ordering Provider - JORDEN BRODY CNP , KNEE LEFT 3 Son 12-09-2021 KNEE LEFT 3 S [facility] Department of Radiology [address] [place] [phone] Patient Name: ELVI MOORE : 1980 Sex: F Age: Race: White Pt. Location: 84 Patient Status: D Ordered Date: 12/09/2021 9:30:00 AM Completed Date: 12/09/2021 09:37 AM Requesting Provider: JORDEN BRODY Attending Provider: JORDEN BRODY Report Copy To: Signs & Symptoms: Z47.1 Aftercare following joint replacement surgery I10 History: [place] Comments: Exam: KNEE LEFT 3 VWS KNEE LEFT 3 S HISTORY: Knee replacement, follow-up. COMPARISON: 10/30/2021. IMPRESSION: 1. Redemonstrated knee arthroplasty, no hardware complication or acute abnormality. Small to moderate joint effusion. 2. Improving soft tissue changes. Electronically signed: Ezio Roberts. Transcribed by: [email or web address], User Resident: Electronically Signed by: EZIO ROBERTS @ 12/10/2021 08:39 AM Normal [facility] Operative Reporton Operative Report MR#: [id number] S [facility] Pt. Name: Elvi Moore Room #: 0C Discharge Date: Birthdate: 1980 OPERATIVE REPORT DATE OF SURGERY: 10/30/2021 SURGEON: Kevin Lane M.D. [employer] SALES CONSULTANT: 1. MD Waleska. 2. LAVON Quinones. ANESTHESIA: [...] arthrotomy was closed itself with #2 interrupted [id number]-ew-nsdty suture. The remainder of the incision was closed in a layered fashion. Sterile dressing was applied. At the conclusion of the case, all sponge and needle counts were correct. I was present for the critical portions of this case. Electronically Signed by: Kevin Lane M.D. 10/30/2021 07:[address] M.D. Date Dict: 10/30/2021/11:00 A/Kevin Lane M.D. Date Trans: 10/30/2021 12:34 P/mmo [id number] cc: Arleth Acharya M.D. [address] [phone] Nasir Thacker, DO [address] [facility] [address] [place] [id number] Normal [facility] POC GLUCOSE LABon 10-30-2021 Glucose [Mass/Vol] 88 mg/dL Normal 70-100 [facility] Comment on above: Performed By: #### 8 5499 ####[address] PORTABLE KNEE LEFT 2 VWSon 0 10-30-2021 PORTABLE KNEE LEFT 2 VWS [facility] Department of Radiology [address] [place] [phone] Patient Name: ELVI MOORE : [...] complication Electronically signed: Yvette Andrade. Transcribed by: [email or web address], User Resident: Electronically Signed by: YVETTE ANDRADE @ 10/30/2021 11:20 AM Normal [facility] Comment on above: Order Comment: Hardw are Evaluation, Postop PACU films for L knee s/p TKA. AP and lateral please *MRSA/MSSA DNA NASALon 10-07 *MRSA/MSSA DNA NASAL Clinical Report: (D) Specimen: NASAL SWAB Collected: 10/07/2021 10:51 Status: Final Last Updated: 10/07/2021 15:44 MSSA DNA (Final) Negative MRSA DNA (Final) Negative Normal [facility] Comment on above: Performed By: #### 3 1595 ####[facility] [place] [address], [facility] APTTon 10-07-2021 aPTT Coag (Bld) [Time] 32.2 s Normal 25.0-35.0 [facility] Comment on above: Result Comment: ALL RESULTS [...] PURPOSE. Performed By: #### 3 1791 #### [facility] [address] [place] [address], [facility] BASIC METABOLIC PANELon - Calcium [Mass/Vol] 9.2 mg/dL Normal 8.6-10.3 [facility] Comment on above: Performed By: #### 3 1791 #### [facility] [address] [place] [address], [facility] Chloride [Moles/Vol] 106 mmol/L Normal 98-107 [facility] Comment on above: Performed By: #### 3 1791 #### [facility] [address] [place] [address], [facility] CO2 [Moles/Vol] 28 mmol/L Normal 21-31 [facility] Comment on above: Performed By: #### 3 1791 #### [facility] [address] [place] [address], [facility] Creatinine [Mass/Vol] 0.77 mg/dL Normal 0.60-1.20 [facility] Comment on above: Performed By: #### 3 1791 #### [facility] [address] [place] [address], [place] GFR/1.73 sq M.predicted among blacks MDRD (S/P/Bld) [Vol rate/Area] mL/min/{1.73_m2} Normal >60 [facility] Comment on above: Performed By: #### 3 1791 #### [facility] [address] [place] [address], [facility] GFR/1.73 sq M.predicted among non-blacks MDRD (S/P/Bld) [Vol rate/Area] mL/min/{1.73_m2} Normal >60 [facility] Comment on above: Performed By: #### 3 1791 #### [facility] [address] [place] [address], [facility] Glucose [Mass/Vol] 84 mg/dL Normal 70-100 [facility] Comment on above: Performed By: #### 3 1791 #### [facility] [address] [place] [address], [facility] Potassium [Moles/Vol] 4.4 mmol/L Normal 3.5-5.1 [facility] Comment on above: Performed By: #### 3 1791 #### [facility] [address] [place] [address], [facility] Sodium [Moles/Vol] 142 mmol/L Normal 136-145 [facility] Comment on above: Performed By: #### 3 1791 #### [facility] [address] [place] [address], [facility] Urea nitrogen [Mass/Vol] 12 mg/dL Normal 7-25 [facility] Comment on above: Performed By: #### 3 1791 #### [facility] [address] [place] [address], [facility] CBC W/DIFFon 10-07-2021 ABS IMM GRANS 0.0 10*3/uL Normal 0.0-0.2 [facility] Comment on above: Performed By: #### 6 1405 #### [facility] [address] [place] [address], [facility] ABS NEUTROPHILS 4.7 10*3/uL Normal 1.6-7.6 [facility] Comment on above: Performed By: #### 6 1405 #### [facility] [address] [place] [address], [facility] Basophils (Bld) [#/Vol] 0.0 10*3/uL Normal 0.0-0.2 [facility] Comment on above: Performed By: #### 6 1405 #### [facility] [address] [place] [address], [facility] Basophils/100 WBC (Bld) 0.3 % Normal 0.0-1.0 [facility] Comment on above: Performed By: #### 6 1405 #### [facility] [address] [place] [address], [facility] Eosinophils (Bld) [#/Vol] 0.2 10*3/uL Normal 0.0-0.5 [facility] Comment on above: Performed By: #### 6 1405 #### [facility] [address] [place] [address], [facility] Eosinophils/100 WBC (Bld) 1.9 % Normal 0.0-6.0 [facility] Comment on above: Performed By: #### 6 1405 #### [facility] [address] [place] [address], [facility] Erythrocyte distribution width (RBC) [Ratio] 14.0 % Normal 11.5-15.0 [facility] Comment on above: Performed By: #### 6 1405 #### [facility] [address] [place] [address], [facility] Hematocrit (Bld) [Volume fraction] 37.1 % Normal 36.0-45.0 [facility] Comment on above: Performed By: #### 6 1405 #### [facility] [address] [place] [address], [facility] Hemoglobin (Bld) [Mass/Vol] 11.3 g/dL Low 12.0-15.0 [facility] Comment on above: Performed By: #### 6 1405 #### [facility] [address] [place] [address], [facility] IMMATURE GRANS 0.1 % Normal 0.0-1.0 [facility] Comment on above: Performed By: #### 6 1405 #### [facility] [address] [place] [address], [facility] Lymphocytes (Bld) [#/Vol] 2.5 10*3/uL Normal 1.2-4.0 [facility] Comment on above: Performed By: #### 6 1405 #### [facility] [address] [place] [address], [facility] Lymphocytes/100 WBC (Bld) 31.6 % Normal 20.0-45.0 [facility] Comment on above: Performed By: #### 6 1405 #### [facility] [address] [place] [address], [facility] MCH (RBC) [Entitic mass] 25.5 pg Low 27.0-33.0 [facility] Comment on above: Performed By: #### 6 1405 #### [facility] [address] [place] [address], [facility] MCHC (RBC) [Mass/Vol] 30.5 g/dL Low 32.0-35.0 [facility] Comment on above: Performed By: #### 6 1405 #### [facility] [address] [place] [address], [facility] MCV (RBC) [Entitic vol] 83.7 fL Normal 82.0-98.0 [facility] Comment on above: Performed By: #### 6 1405 #### [facility] [address] [facility] [place] [place] [address], [facility] Monocytes (Bld) [#/Vol] 0.5 10*3/uL Normal 0.1-1.0 [facility] Comment on above: Performed By: #### 6 1405 #### [facility] [address] MONOS 6.0 % Normal 5.0-12.0 [facility] Comment on above: Performed By: #### 6 1405 #### [facility] [address] [place] [address], [facility] Neutrophils/100 WBC (Bld) 60.1 % Normal 40.0-72.0 [facility] Comment on above: Performed By: #### 6 1405 #### [facility] [address] Nucleated RBC/100 WBC (Bld) [Ratio] 0 % Normal 0-0 [facility] Comment on above: Performed By: #### 6 1405 #### [facility] [address] PLAT CNT 233 10*3/uL Normal 150-400 [facility] Comment on above: Performed By: #### 6 1405 #### [facility] [address] RBC (Bld) [#/Vol] 4.43 10*6/uL Normal 3.80-5.00 [facility] Comment on above: Performed By: #### 6 1405 #### [facility] [address] [place] [address], [facility] WBC (Bld) [#/Vol] 7.85 10*3/uL Normal 4.00-10.60 [facility] Comment on above: Performed By: #### 6 1405 #### [facility] [address] PROTHROMBIN TIMEon 202 1 INR Coag (PPP) [Relative time] 0.94 {INR} Normal 0.91-1.16 [facility] Comment on above: Result Comment: ACCC P [...] 1995;108:231S-246S. Performed By: #### 3 1790 #### [facility] [address] [place] [address], [facility] PT Coag (PPP) [Time] 12.6 s Normal 12.3-14.8 [facility] Comment on above: Result Comment: ALL RESULTS MUST BE INTERPRETED WITH RESPECT TO BLOOD DRAWING ARTIFACT OR DILUTION ERROR OF ANTICOAGULANT AT THE TIME OF SAMPLING. Performed By: #### 3 4661 #### [facility] [address] [place] [address], [facility] TYPE AND SCREENon 10-07-2021 ABO INTERPRETATION O Normal [facility] Comment on above: Performed By: #### 3 1790 #### [facility] [address] [place] [address], [facility] RH INTERPRETATION Positive Normal [facility] Comment on above: Performed By: #### 3 1790 #### [facility] [address] [place] [address], [facility] *MRSA/MSSA DNA NASALon 08-12 *MRSA/MSSA DNA NASAL Clinical Report: (D) Specimen: NASAL SWAB Collected: 08/12/2021 10:14 Status: Final Last Updated: 08/12/2021 18:58 MSSA DNA (Final) Negative MRSA DNA (Final) Negative Normal [facility] Comment on above: Performed By: #### 6 1405 #### [facility] [address] CBC W/DIFFon 08-12-2021 ABS IMM GRANS 0.0 10*3/uL Normal 0.0-0.2 [facility] Comment on above: Performed By: #### 6 1405 #### [facility] [address] ABS NEUTROPHILS 3.7 10*3/uL Normal 1.6-7.6 [facility] Comment on above: Performed By: #### 6 1405 #### [facility] [address] Basophils (Bld) [#/Vol] 0.0 10*3/uL Normal 0.0-0.2 [facility] Comment on above: Performed By: #### 6 1405 #### [facility] [address] Basophils/100 WBC (Bld) 0.3 % Normal 0.0-1.0 [facility] Comment on above: Performed By: #### 6 1405 #### [facility] [address] Eosinophils (Bld) [#/Vol] 0.2 10*3/uL Normal 0.0-0.5 [facility] Comment on above: Performed By: #### 6 1405 #### [facility] [address] [place] [address], [facility] Eosinophils/100 WBC (Bld) 2.9 % Normal 0.0-6.0 [facility] Comment on above: Performed By: #### 6 1405 #### [facility] [address] [facility] [address] Erythrocyte distribution width (RBC) [Ratio] 14.0 % Normal 11.5-15.0 [facility] Comment on above: Performed By: #### 6 1405 #### [facility] [address] [place] [address], [facility] Hematocrit (Bld) [Volume fraction] 37.0 % Normal 36.0-45.0 [facility] Comment on above: Performed By: #### 6 1405 #### [facility] [address] [facility]. [address] Hemoglobin (Bld) [Mass/Vol] 11.6 g/dL Low 12.0-15.0 [facility] Comment on above: Performed By: #### 6 1405 #### [facility] [address] [facility]. [address] IMMATURE GRANS 0.3 % Normal 0.0-1.0 [facility] Comment on above: Performed By: #### 6 1405 #### [facility] [address] [facility]. [address] Lymphocytes (Bld) [#/Vol] 2.1 10*3/uL Normal 1.2-4.0 [facility] Comment on above: Performed By: #### 6 1405 #### [facility] [address] Lymphocytes/100 WBC (Bld) 32.5 % Normal 20.0-45.0 [facility] Comment on above: Performed By: #### 6 1405 #### [facility] [address] [place] [address], [facility] MCH (RBC) [Entitic mass] 26.8 pg Low 27.0-33.0 [facility] Comment on above: Performed By: #### 6 1405 #### [facility] [address] [facility] MCHC (RBC) [Mass/Vol] 31.4 g/dL Low 32.0-35.0 [facility] Comment on above: Performed By: #### 6 1405 #### [facility] [address] [facility]. [address] MCV (RBC) [Entitic vol] 85.5 fL Normal 82.0-98.0 [facility] Comment on above: Performed By: #### 6 1405 #### [facility] [address] [place] [address], [facility] Monocytes (Bld) [#/Vol] 0.5 10*3/uL Normal 0.1-1.0 [facility] Comment on above: Performed By: #### 6 1405 #### [facility] [address] MONOS 6.9 % Normal 5.0-12.0 [facility] Comment on above: Performed By: #### 6 1405 #### [facility] [address] Neutrophils/100 WBC (Bld) 57.1 % Normal 40.0-72.0 [facility] Comment on above: Performed By: #### 6 1405 #### [facility] [address] Nucleated RBC/100 WBC (Bld) [Ratio] 0 % Normal 0-0 [facility] Comment on above: Performed By: #### 6 1405 #### [facility] [address] [place] [address], [facility] PLAT CNT 223 10*3/uL Normal 150-400 [facility] Comment on above: Performed By: #### 6 1405 #### [facility] [address] [place] [address], [facility] RBC (Bld) [#/Vol] 4.33 10*6/uL Normal 3.80-5.00 [facility] Comment on above: Performed By: #### 6 1405 #### [facility] [address] [place] [address], [facility] WBC (Bld) [#/Vol] 6.55 10*3/uL Normal 4.00-10.60 [facility] Comment on above: Performed By: #### 6 1405 #### [facility] [address] [place] [address], [facility] HEMOGLOBIN A1Con 08-12-2021 Glucose [Moles/Vol] 103 mmol/L Normal [facility] Comment on above: Performed By: #### 3 1791 #### [facility] [address] [place] [address], [facility] HbA1c (Bld) [Mass fraction] 5.2 % Normal 4.0-6.0 [facility] Comment on above: Performed By: #### 3 1791 #### [facility] [address] [place] [address], [facility] KNEE LEFT 3 VWSon 08-12-2021 KNEE LEFT 3 S [facility] Department of Radiology [address] [place] [id number] Patient Name: ELVI MOORE : 1980 [...] report. Electronically signed: Jah Juarez. Transcribed by: [email or web address], User Resident: JODY KEITH Electronically Signed by: JAH JUAREZ @ 08/12/2021 03:46 PM I personally read this/these film(s) with this resident Normal [facility] Comment on above: Order Comment: evalu ate [...] _Zhane Tamez MD 12/30/17 16:02 EDT Normal [facility] Otolaryngology Office/Clinic Noteon 11-18-2017 Otolaryngology [...] _Zhane Tamez MD 11/18/17 16:31 EST Normal [facility] Otolaryngology Office/Clinic Note Patient seen for dispense of bilateral swim plugs. Both plugs display good fit in the ears, and patient confirmed comfort of fit. Proper insertion/removal was practiced successfully. Plan: Return if issues arise regarding swim plugs. N/C, swim plugs paid at last appointment.Electronicall y signed by _Rima Muñoz 11/18/17 16:04 EST Normal [facility] Otolaryngology Office/Clinic Noteon 10-28-2017 Otolaryngology Office/Clinic [...] _Kyara Rima Roque 10/28/17 16:31 EST Normal [facility] Otolaryngology Office/Clinic Note Chief Complaint post-opHistory [...] _Zhane Tamez MD 10/28/17 15:41 EST Normal [facility] Otolaryngology Office/Clinic Noteon 09-16-2017 Otolaryngology Office/Clinic [...] _Zhane Tamez MD 09/16/17 16:06 EST Normal [facility] Otolaryngology Consultationo n 04-20-2017 Otolaryngology Consultation [...] _Zhane Tamez MD 04/20/17 16:51 EDT Normal [facility] Vital Signs Date Time Vital Sign Value Performing Clinician Facility 03-07-2024 16:03-0400 Blood Pressure Location [facility] 03-07-2024 16:03-0400 Body temperature 97.88 [degF] [facility] 03-07-2024 16:03-0400 Diastolic blood pressure 80 mm[Hg] [facility] 03-07-2024 16:03-0400 Heart rate 87 /min [facility] 03-07-2024 16:03-0400 Respiratory rate 16 /min ELIZABETH STEPH [facility] 03-07-2024 16:03-0400 Systolic blood pressure 124 mm[Hg] ELIZABETH STEPH [facility] 01-06-2024 18:12-0400 Body height 167.64 cm MD Arleth Acharya Work Phone: [facility] 01-06-2024 18:12-0400 Body mass index (BMI) [Ratio] 25.6 kg/m2 MD Arleth Acharya Work Phone: [facility] 01-06-2024 18:12-0400 Body temperature 98.2 [degF] MD Arleth Acharya Work Phone: [facility] 01-06-2024 18:12-0400 Body weight 72 kg MD Arleth Acharya Work Phone: [facility] 01-06-2024 18:12-0400 Heart rate 93 /min MD Arleth Acharya Work Phone: [facility] 01-06-2024 18:12-0400 Respiratory rate 16 /min MD Arleth Acharya Work Phone: [facility] 01-06-2024 18:12-0400 SaO2% (BldA) [Mass fraction] 99 % MD Arleth Acharya Work Phone: [facility] 09-13-2023 12:04-0500 Blood Pressure Location Diana HAWKINS [facility] 09-13-2023 12:04-0500 Diastolic blood pressure 74 mm[Hg] Diana HAWKINS [facility] 09-13-2023 12:04-0500 Heart rate 64 /min Diana HAWKINS [facility] 09-13-2023 12:04-0500 Respiratory rate 16 /min Diana HAWKINS [facility] 09-13-2023 12:04-0500 Systolic blood pressure 128 mm[Hg] Diana HAWKINS [facility] 05-28-2023 11:12-0400 Body temperature 98 [degF] MD Arleth Acharya Work Phone: [facility] 05-28-2023 11:12-0400 Body weight 70.76 kg MD Arleth Acharya Work Phone: [facility] 05-28-2023 11:12-0400 Diastolic blood pressure 94 mm[Hg] MD Arleth Acharya Work Phone: [facility] 05-28-2023 11:12-0400 Heart rate 88 /min MD Arleth Acharya Work Phone: [facility] 05-28-2023 11:12-0400 Respiratory rate 16 /min MD Arleth Acharya Work Phone: [facility] 05-28-2023 11:12-0400 SaO2% (BldA) [Mass fraction] 98 % MD Arleth Acharya Work Phone: [facility] 05-28-2023 11:12-0400 Systolic blood pressure 131 mm[Hg] MD Arleth Acharya Work Phone: [facility] 05-28-2023 11:00-0400 Body height 167.64 cm MD Arleth Acharya Work Phone: [facility] 06-29-2022 09:25-0400 Blood Pressure Location Diana HAWKINS [facility] 06-29-2022 09:25-0400 Diastolic blood pressure 84 mm[Hg] Diana HAWKINS [facility] 06-29-2022 09:25-0400 Heart rate 84 /min Diana HAWKINS [facility] 06-29-2022 09:25-0400 Respiratory rate 16 /min Diana HAWKINS [facility] 06-29-2022 09:25-0400 Systolic blood pressure 115 mm[Hg] Diana HAWKINS [facility] Encounters Encounter Date Encounter Type Care Provider Facility Start: 01-11-2025 End: 01-11-2025 Evaluation and management of inpatient ARLETH ACHARYA [facility] Start: 12-25-2024 End: 12-25-2024 ambulatory [facility] Start: 12-08-2024 End: 12-08-2024 Emergency department patient visit ARLETH ACHARYA [facility] Start: 12-05-2024 End: [facility] Start[facility] 10-19-2024 ambulatory RUKHSANA ANGELA [facility] Start: 08-09-2024 End: 08-09-2024 Emergency department patient visit ARLETH ACHARYA [facility] Start: 07-24-2024 End: 07-24-2024 ambulatory [facility] Start: 07-19-2024 ambulatory RUKHSANA MILLER [facility] Start: 07-17-2024 End: 07-17-2024 ambulatory BILL Uribe [facility] Start: 07-14-2024 End: [facility]14[facility] Start: 06-01-2024 End: 06-01-2024 ambulatory ILFELD Christine [place] Start: 05-01-2024 End: 05-03-2024 ambulatory BILL BROWN [facility] Start: 05-01-2024 End: 05-03-2024 Subsequent hospital visit by physician [facility] Cat Scan Room [facility] Scan 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 Start: 03-22-2024 End: 03-22-2024 Departed Referred MD Arleth Acharya Work Phone: [facility] Start: 03-22-2024 End: 03-22-2024 ambulatory MD Arleth Acharya Work Phone: [facility] Work Phone: Start: 03-17-2024 ambulatory RUKHSANA MILLER [place] [facility] Start: 03-07-2024 End: 03-07-2024 ambulatory ELIZABETH VACA Facility:[facility] Start: 03-07-2024 End: 03-07-2024 Patient encounter procedure ELIZABETH VACA [facility] Start: 03-06-2024 End: 03-07-2024 Emergency department patient visit [facility] Start: 03-06-2024 End: 03-07-2024 Emergency department patient visit ARLETH Phillips Rusty [facility] Start: 02-15-2024 End: 02-15-2024 ambulatory ARLETH Phillips [facility] Start: 02-08-2024 End: 02-08-2024 ambulatory DIANA HAWKINS [facility] Start: 02-07-2024 ambulatory Diana HAWKINS [facility] Start: 01-06-2024 End: 01-06-2024 ambulatory MD Arleth Acharya Work Phone: [facility] Work Phone: Start: 01-06-2024 End: 01-06-2024 Patient encounter procedure MD Arleth Acharya Work Phone: [facility] Work Phone: Start: 10-12-2023 End: 10-12-2023 Patient encounter procedure Diana HAWKINS [facility] Start: 09-13-2023 End: 09-13-2023 Patient encounter procedure [facility] Start: 06-28-2023 ambulatory Osiris Bentonleianahun Facility:[facility] Start: 05-28-2023 End: 05-28-2023 ambulatory MD Arleth Acharya Work Phone: [facility] Work Phone: Start: 05-28-2023 End: 05-28-2023 Registered Recurring MD Arleth Acharya Work Phone: [facility] Work Phone: Start: 01-25-2023 End: 01-25-2023 ambulatory GENNA HEATON Facility:[facility] Start: 01-21-2023 End: 01-22-[address] ARLETH ACHARYA . Facility:[facility] Start: 01-04-2023 End: 01-04-2023 Patient encounter procedure Diana HAWKINS [facility] Start: 10-10-[address] ARLETH ACHARYA . Facili ty:[facility] Start: 10-06-2022 End: 10-06-[address] ARLETH ACHARYA . Facility:[facility] Start: 09-30-2022 End: 10-01-[address] ARLETH ACHARYA . Facility:[facility] Start: 09-21-2022 End: 09-21-[address] ARLETH ACHARYA . Facility:[facility] Start: 08-27-2022 Encounter for preprocedural laboratory examination DR DIANA HAWKINS . [facility] Start: 08-27-2022 End: 08-27-2022 ambulatory [...] encounter procedure Diana HAWKINS [facility] Start: 06-11-[address] Facility :[facility] Start: 06-09-2022 End: 06-11-[address] Facility:[facility] Start: 06-03-2022 End: 06-03-2022 Emergency department patient visit ARLETH ACHARYA Facility:[facility] Start: 06-01-2022 End: 06-01-2022 Evaluation and management of inpatient Kevin Lane Facility:[facility] Start: 05-26-2022 End: 05-27-[address] Facility:[facility] Start: 05-26-2022 End: 05-27-2022 Encounter for preprocedural laboratory examination Kevin Lane Facility:[facility] Start: 05-16-2022 ambulatory NICK YOO Facility: Start: 05-01-2022 End: 05-02-2022 ambulatory NICK YOO Facility: Start: 04-29-2022 End: 04-29-2022 ambulatory ENEDINA IVEY . Facility: Start: 04-16-2022 End: 04-17-[address] ARLETH ACHARYA . Facility: Start: 04-07-2022 End: 04-08-[address] Facility:[facility] Start: 03-24-2022 End: 03-25-2022 ambulatory REFERRED SELF Facility:[facility] Start: 02-12-2022 End: 02-13-[address] Facility:[facility] Start: 01-09-2022 End: 01-10-2022 ambulatory REFERRED SELF Facility:[facility] Start: 12-26-2021 End: 12-27-2021 ambulatory REFERRED SELF Facility:[facility] Start: 12-09-2021 End: 12-10-2021 ambulatory REFERRED SELF Facility:[facility] Start: 10-30-2021 End: 10-31-[address] Facility:[facility] Start: 10-11-2021 End: 11-11-2021 ambulatory Kevin Madaying Facility:[facility] Start: 10-07-2021 End: 10-08-2021 ambulatory Kevin Nassaring Facility:[facility] Start: 10-06-2021 End: 10-11-2021 ambulatory Kevin Nassaring Facility:[facility] Start: 08-12-2021 End: 08-13-2021 ambulatory REFERRED SELF Facility:[facility] Start: 2017 End: 12-31-2017 Ambulatory ZHANE W TAMEZ [facility] Start: 11-18-2017 End: 11-19-2017 Ambulatory ZHANE W TAMEZ Facility:[facility] Start: 10-28-2017 End: 10-29-2017 Ambulatory Rima Sparrow [facility] Start: 10-14-2017 End: 10-15-2017 Ambulatory ZHANE W TAMEZ Facility:[facility] Start: 09-16-2017 End: 09-17-2017 Ambulatory ZHANE W TAMEZ Facility:[facility] Start: 06-24-2017 Ambulatory ZHANE W TAMEZ Facility :[facility] Start: 04-20-2017 End: 04-21-2017 Ambulatory ZHANE W TAMEZ Facility:[facility] Procedures Date Procedure Procedure Detail Performing Clinician Start: 01-06-2024 X-ray of left ankle MD Arleth Acharya Work Phone: Start: 10-12-2023 Cystoscopic removal of ureteric stent ELIZABETH VACA Start: 09-16-2023 Cystoscopic laser lithotripsy of ureteric calculus ELIZABETH VACA Start: 08-27-2022 Cystoscopic removal of ureteric stent Diana HAWKINS Start: 07-23-2022 Cystoscopic insertio n of ureteric stent Diana HAWKINS Start: 10-07-2021 Antibody screen Kevin Nassarxiang Comment on above: Performed By: #### [id number] #### [place] [address], [facility] Appendectomy Diana HAWKINS Arthroplasty of knee Diana HAWKINS Arthroscopy of knee Diana HAWKINS Bypass of stomach Diana GRIMES Cholecystectomy Diana ALVARADO Hysterectomy Diana HAWKINS Implantation of temp orary spinal cord stimulator Diana HAWKINS Tonsillectomy Diana HAWKINS Plan of Treatment Date Care Activity Detail Author Start: 05-11-2024 Influenza vaccination [facility] (# 1[facility] Start: 06-11-2023 COVID-19 Vaccine ( season) COVID-19 Vaccine () [facility] Start: 05-28-2023 [facility] Start: 2021 Lipid panel [facility]ids [facility] [employer] Start: 2021 Screening for malign ant neoplasm of breast Breast cancer screen [facility] Start: 07-10-2021 DTaP/Tdap/Td vaccine (2 - Td or Tdap) DTaP/Tdap/Td vaccine (2 - Td or Tdap) [facility] Start: 2016 Diabetes screen Diabetes screen [facility] Start: 12-31-1999 Hepatitis C screening Hepatitis C sc reen [facility] Start: 1996 HIV screening [facility] Start: 1993 Depression Screen Depression Screen [facility] Start: 1982 Varicella vaccine (1 of 2 - 2-dose childhood series) Varicella vaccine (1 of 2 - 2-dose childhood series) [facility] Start: 1981 Hepatitis B vaccine (1 of 3 - 3-dose series) Hepatitis B vaccine (1 of 3 - 3-dose series) [facility] End: 05-01-2024 CT Neck W contrast IV [facility] Work Phone: Comment on above: 1 Occurrences starti ng 05/01/2024 until 05/01/2024 Iron binding capacit y [Mass/volume] in Serum or Plasma [facility] Iron saturation [Mas s Fraction] in Serum or Plasma [facility] Immunizations Immunization Date Immunization Notes Care Provider Wicho shaw 07-29-2022 influenza virus vacc ine, unspecified formulation ELIZABETH VACA [facility] 07-29-2022 SARS-CoV-2 (COVID-19 ) [id number] ELIZABETH VACA [facility] 10-08-2021 SARS-CoV-2 (COVID-19 ) mRNA BNT-162b2 vax Phrazit [facility] 01-30-2021 SARS-CoV-2 (COVID-19 ) mRNA BNT-162b2 vax Phrazit [facility] 01-09-2021 SARS-CoV-2 (COVID-19 ) mRNA BNT-162b2 vax Phrazit [facility] 07-11-2020 influenza virus vacc ine, unspecified formulation Phrazit [facility] 07-03-2020 influenza virus vacc ine, unspecified formulation Phrazit [facility] 07-18-2019 influenza virus vacc ine, unspecified formulation Phrazit [facility] 07-08-2018 influenza virus vacc ine, unspecified formulation Phrazit [facility] 01-01-2016 pneumococcal polysaccharide vaccine, 23 valent Diana ROSS [facility] 09-17-2013 influenza virus vacc ine, unspecified formulation Diana ROSS [facility] 07-10-2011 tetanus toxoid, redu demar diphtheria toxoid, and acellular pertussis vaccine, adsorbed Diana HAWKINS [facility] Payers Date Payer Category Payer Unknown [id number] 2017 Self-pay 2017 Unknown 2012 Unknown [id number] 2012 Unknown [id number] 1981 Unknown [id number] 2.16.8 40.1.184442.3.579.2.647 1981 Unknown [id number] 2.16.8 40.1.538033.3.579.2.647 1981 Unknown [id number] 2.16.8 40.1.134143.3.579.2.647 1981 Unknown [id number] .16.8 40.1.776061.3.579.2.647 1981 Unknown [id number] 2.16.8 40.1.590914.3.579.2.647 1981 Unknown [id number] 2.16.8 40.1.494950.3.579.2.647 1981 Unknown [id number] 2.16.8 40.1.407273.3.579.2.647 1981 Unknown [id number] 2.16.8 40.1.274785.3.579.2.647 1981 Unknown [id number] 2.16.8 40.1.414229.3.579.2.647 1981 Unknown [id number] 2.16.8 40.1.474763.3.579.2.647 1981 Unknown [id number] 2.16.8 40.1.879364.3.579.2.647 1981 Unknown [id number] 2.16.8 40.1.284578.3.579.2.647 1981 Unknown [id number] 2.16.8 40.1.234590.3.579.2.647 1981 Unknown [id number] 2.16.8 40.1.629978.3.579.2.647 1981 Unknown [id number] 2.16.8 40.1.213216.3.579.2.647 1981 Unknown [id number] 2.16.8 40.1.871505.3.579.2.647 1981 Unknown [id number] 2.16.84 0.1.711132.3.579.2.593 1981 Unknown [id number] 2.16.84 0.1.517549.3.579.2.593 1981 Unknown [id number] 2.16.84 0.1.301046.3.579.2.593 1981 Unknown [id number] 2.16.84 0.1.596675.3.579.2.593 1981 Unknown [id number] 2.16.84 0.1.261451.3.579.2.593 1981 Unknown [id number] 2.16.84 0.1.477837.3.579.2.593 1981 Unknown [id number] 2.16.84 0.1.496611.3.579.2.593 1981 Unknown [id number] 2.16.84 0.1.733332.3.579.2.593 1981 Unknown [id number] 2.16.84 0.1.392441.3.579.2.593 1981 Unknown [id number] 2.16.84 0.1.910439.3.579.2.593 1981 Unknown [id number] 2.16.84 0.1.502849.3.579.2.593 1981 Unknown [id number] 2.16.84 0.1.496453.3.579.2.593 1981 Unknown [id number] 2.16.84 0.1.109649.3.579.2.593 1981 Unknown [id number] 2.16.84 0.1.633122.3.579.2.593 1981 Unknown [id number] 2.16.84 0.1.390272.3.579.2.593 1981 Unknown [id number] 2.16.84 0.1.964076.3.579.2.593 1981 Unknown [id number] 2.16.84 0.1.971078.3.579.2.593 1981 Unknown [id number] 2.16.84 0.1.449849.3.579.2.593 1981 Unknown [id number] 2.16.8 40.1.976282.3.579.2.173 1981 Unknown [id number] 2.16. 840.1.503326.3.579.2.175 1981 Unknown [id number] 2.16.8 40.1.653984.3.579.2.727 1981 Unknown [id number] 2.16.8 40.1.426377.3.579.2.727 1981 Unknown [id number] 2.16. 840.1.352075.3.579.2.1286 1981 Unknown [id number] 2.16. 840.1.979255.3.579.2.1286 1981 Unknown [id number] 2.16.8 40.1.588097.3.579.2.1286 1981 Unknown [id number] 2.16.8 40.1.631061.3.579.2.1286 1981 Unknown [id number] 2.16.8 40.1.325780.3.579.2.1286 1981 Unknown [id number] 2.16.8 40.1.687467.3.579.2.1286 1981 Unknown [id number] 2.16.8 40.1.874184.3.579.2.1286 1959 Self-pay [id number] Unknown [id number] 2.16.8 40.1.333119.3.579.2.531 Unknown [id number] 2.16.8 40.1.021284.3.579.2.531 Unknown [id number] 2.16.8 40.1.123477.3.579.2.531 Social History Date Type Detail Facility Start: 06-29-2022 End: 04-18-2024 Tobacco smoking status Ex-smoker (finding) [facility] Start: 04-18-2024 Sex Assigned At Female [facility] Start: 1980 Sex Assigned At Female F [facility] Tobacco smoking status Never [facility] End: 06-11-2016 History of tobacco use Current smoker [facility] End: 06-11-2016 History of tobacco use Cigarette Smoker [facility] History of tobacco use Passive smoker [facility] Start: 04-18-2024 Tobacco use and exposure Smokeless tobacco non-user [facility] Start: 04-18-2024 Alcohol intake 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) [facility] Start: 04-18-2024 History of Social function [facility] Start: 1980 Sex Assigned At Not on file [facility] Functional Status Date Assessment Result Facility 03-07-2024 Functional Status N/A [facility] 10-12-2023 Functional Status N/A [facility] 09-13-2023 Functional Status N/A [facility] 06-29-2022 Functional Status N/A [facility] Clinical Notes 06-16-2022 to 12-25-2024 Note Date & Type Note Facility 12-25-2024 Note Orthopedic Surgery Subjective Edema, Follow-up, and Pain of the Left Knee (Hx l knee revision & TKA - States she took a fall when her knee gave out last week and when she fell she heard the loudest pop and her pain has been severe since ) 12/25/24 Patient is a 43-year-old female presenting for evaluation of chronic left knee pain. Patient has history of left knee total arthroplasty with Dr. Lane in 2021 with subsequent revision. She reports pain never improved following surgery. She reports significant start up pain no severe with her first 2 steps of ambulating. Pain is most severe along the anteromedial aspect of the knee. She endorses pain, numbness, tingling and paresthesias in the left knee. She denies any fevers, chills, rigors, or erythema of the knee. She states that she fell last week and heard a loud pop in her knee with subsequent swelling. She states she has a spinal cord stimulator which provides relief everywhere except for the knee. She has been on long-term pain medications from pain management which did not provide relief for the knee. Patient has history of gastric bypass surgery and states that she is currently being treated for anemia. Patient states she takes vitamin B12 supplement. Patient states that she quit smoking in 2015. 07/24/2024 Elvi Moore is a 43 y.o. female [...] sees pain management and is currently taking Columbus every 8 hours and Lyrica. She also has a spinal stimulator, which improves her left calf pain but does not touch her left knee pain. Reports occasional swelling that worsens throughout the day. She manages this with elevation and ice. Denies recent fever, chills, warmth, erythema, drainage from incision. Review of Systems positive for: Joint pain Swelling History Past Surgical History: Procedure Laterality Date [...] WELL Objective General: Body mass index is 26.63 kg/m???. No acute distress, comfortable Respiratory: Unlabored [...] Stable to varus stress throughout Stable to ante (more content not included)... [facility] 10-19-2024 Note Pain Medicine Medical [address] [address] Subjective Patient ID: Elvi Moore is a [...] retention loop lost. 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 Other chronic postprocedural pain pregabalin (Lyrica) 50 mg capsule HYDROcodone-acetaminophen (Columbus) 5-325 mg tablet 5. Presence of neurostimulator Discussed chronic pain, medication use, treatment goals. Medication risk and benefits discussed. The Spine Diagram and Test results were used to explain the condition. PLAN: 1. Continue Columbus 5/325mg TID PRN for severe pain 8-10 [...] questions are ans (more content not included)... [facility] 07-24-2024 Note Orthopedic Surgery Subjective New Patient [...] sees pain management and is currently taking Columbus every 8 hours and Lyrica. She also [...] TKA with beltran (more content not included)... [facility] 07-19-2024 [place] [address] Subjective Patient ID: Elvi Moore is a [...] retention loop lost. 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 PLAN: 1. Continue Columbus 5/325mg TID PRN for severe pain 8-10 [...] to patient, alicia (more content not included)... [facility] 06-01-2024 Note HPI 43 yo female with [...] scan Blood work Appointment with Dr Burkett [facility] 03-17-2024 [place] [address] Subjective Patient ID: Elvi Moore is a [...] retention loop lost. 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 Other chronic postprocedural pain HYDROcodone-acetaminophen (Columbus) 5-325 mg tablet gabapentin (Neurontin) 300 mg capsule Discussed chronic pain, medication use, treatment goals. Medication risk and benefits discussed. The Spine Diagram and Test results were used to explain the condition. PLAN: 1. Continue Columbus 5/325mg TID PRN for severe pain 8-10 [...] to compliance m (more content not included)... [facility] 03-07-2024 Hospital Discharge instructions Patient Education 03/07/2024 [...] include: ?8 oz (237 mL) of milk, ruqaxxs-fuumbezmgohr-hwbhv milk, and calcium-fortifiedfruit juice. Calcium-fortified means that [...] ?Spinach (cooked), rhubarb, beets, sweet potatoes, and [place] chard. ?Peanuts. ?Potato chips, luxembourger fries, and baked potatoes with skin on. ?Nuts and nut products. ?Chocolate. If you regularly take a diuretic medicine, make sure to eat at least 1 or 2 servings of fruits or vegetables that are high in potassium each day. These include: ?Avocado. ?Banana. ?[place], prune, carrot, or tomato juice. ?Baked potato. [...] magnesium, fish oil, or vitamin B6. Take [id number] and prescription medicines only as told by [...] Casseroles. Pizza. Lasagna. Frozen meals. Potato chips. Macedonian fries. The items listed above may not [...] provider. Document Revised: 01/07/2023 Document Reviewed: 01/07/2023 [employer] Patient Education 2022 [employer]. Follow Up Care 01/26/2024 10:43:28 With:ELIZABETH VACA PA-C, URL Address: [address] [place] [id number] When: Unknown [facility] 10-12-2023 Hospital Discharge instructions Patient Education 10/12/2023 [...] HAWKINS Address: [facility] [address] [place] [address] Business (1) When:01/11/2024 10:36:33 Comments:With a stone metabolic workup [facility] 09-13-2023 Hospital Discharge instructions Patient Education [...] including vitamins, herbs, eye drops, creams, and yhdv-pqe-ucaybep medicines. Any problems you or family members [...] provider tells you to take them. Taking fqoc-kuw-ixlnwvp medicines, vitamins, herbs, and supplements. Tests You [...] Follow these instructions at home: Medicines Take dzwt-kme-bzuspcc and prescription medicines only as told by [...] provider. Document Revised: 06/10/2022 Document Reviewed: 05/09/2021 [employer] Patient Education 2022 [employer]. 09/13/2023 12:55:19 Hematuria, Adult Hematuria, Adult Hematuria [...] Follow these instructions at home: Medicines Take lgvo-lbt-epupweg and prescription medicines only as told by [...] or the blood stops without treatment. Take sobr-bhz-vukbyxp and prescription medicines only as told by your health care provider. Drink enough fluid to keep your urine pale yellow. This information is not intended to replace advice given to you by your health care provider. Make sure you discuss any questions you have with your health care provider. Document Revised: 05/28/2021 Document Reviewed: 05/28/2021 Chartbeat Patient Education 2022 [employer]. Follow Up Care 08/20/2023 11:43:21 With:ROSS GENTILE, Diana Goss, URL Address: [facility] [address] , [place] [address] [phone] When: Unknown Comments:sched cysto [facility] 01-04-2023 Hospital Discharge instructions Patient Education 01/04/2023 [...] include: ?Spinach. ?Rhubarb. ?Beets. ?Potato chips and luxembourger fries. ?Nuts. If you regularly take a diuretic medicine, make sure to eat at least 1 2 fruits or vegetables high in potassium each day. These include: ?Avocado. ?Banana. ?[place], prune, carrot, or tomato juice. ?Baked potato. [...] Casseroles. Pizza. Lasagna. Frozen meals. Potato chips. [place]onian fries. Summary You can reduce your risk [...] 01/22/2012 Document Revised: 01/17/2020 Document Reviewed: 09/07/2017 Chart[employer] Patient Education 2020 [employer] Follow Up Care 10/29/2022 14:23:18 With:ROSS GENTILE, Diana Goss, URL Address: [facility] [address] , [place] [address]- When: Unknown [facility] 06-29-2022 Evaluation + Plan note Diagnostic Tests [facility] Urine [facility] ([facility]) 06/29/22 [facility] 06-29-2022 Hospital Discharge instructions Patient Education [...] Follow these instructions at home: Medicines Take cacg-vzj-jemewmw and prescription medicines only as told by [...] or the blood stops without treatment. Take mouh-kdx-vachzbh and prescription medicines only as told by your health care provider. Drink enough fluid to keep your urine clear or pale yellow. This information is not intended to replace advice given to you by your health care provider. Make sure you discuss any questions you have with your health care provider. Document Released: 09/27/2006 Document Revised: 02/21/2020 Document Reviewed: 10/30/2017 Chartbeat Patient Education 2020 [employer] Follow Up Care 05/06/2022 15:50:29 With:ROSS GENTILE, Diana Goss, URL Address: [facility] [address] [place] [address]- [phone] When: Unknown [facility] [place] 06-16-2022 Note MR#: [id number] I [facility] Pt. Name: Elvi Moore Admitted: 06/01/2022 Discharged: [...] Cavazos MD Date Trans: 06/16/2022 02:27 P/mmo [id number] cc: Arleth Acharya M.D. [address] [place] [address] [facility] Evaluation + Plan note Future Appointments Appointment Date:01/11/2023 01:45:00 PM Scheduled Provider:Diana HAWKINS MD Location:[facility] Appointment Type:URO Office Visit [facility] Evaluation + Plan note Future Appointments Appointment Date:02/07/2024 10:15:00 AM Scheduled Provider:Diana HAWKINS MD Location:[facility] Appointment Type:URO Office Visit [facility] Evaluation note No assessment inform ation available [facility] Work Phone: Evaluation note Diagnosis Onset Date Left ankle sprain noneactive [facility] Work Phone: Evaluation note* Diagnosis Pleomorphic adenoma of parotid gland documented in this encounter [facility] course Narrative No data available for this section [facility] progress note No data available for this section [facility] Summary Purpose Family History No Family History [...] Referral Specialty Diagnoses / Procedures Referred By Contac t Referred To Contact Radiology Diagnoses Pleomorphic adenoma of parotid gland Procedures CT SOFT TISSUE NECK W CONTRAST Bill Brown MD [address] [address] Referral ID Status Reason Start Date Expiration Date Visits Re quested Visits Authorized [id number] Closed 05/01/2024 07/29/2024 1 1 Additional Source Comments INFORMATION SOURCE (unrecogn ized section and content) DATE CREATED AUTHOR 03/31/2018 [facility] DATE CREATED AUTHOR AUTHOR'S ORGANIZ ATION 06/23/2022 [facility] DATE CREATED AUTHOR AUTHOR'S ORGANIZ ATION 01/28/2023 [facility] DATE CREATED AUTHOR AUTHOR'S ORGANIZ ATION 03/31/2024 [facility] DATE CREATED AUTHOR AUTHOR'S ORGANIZ ATION 05/04/2024 [facility] DATE CREATED AUTHOR AUTHOR'S ORGANIZ ATION 07/19/2024 [facility] DATE CREATED AUTHOR AUTHOR'S ORGANIZ ATION 10/27/2024 [facility] DATE CREATED AUTHOR AUTHOR'S ORGANIZ ATION 01/08/2025 [facility] DATE CREATED AUTHOR AUTHOR'S ORGANIZ ATION 01/14/2025 [facility] Care Team (unrecognized sect ion [...] Acharya MD Primary Care Provider, Referring Pr ovider Active Osiris Calderón APRN Attending Provider Acti ve Team Status: Inactive Member Role Status Dates Harry Pettit MD Attending Provider Active Star t: March 22, 2024 End: March 22, 2024 Services Host Relationship Specialty Start Date End Date Arleth Acharya MD [address] [place] [address] PCP - General 12/30/14 Goals (unrecognized section and content) Goals may be documented in a n alternate section Reason for Visit (unrecogniz ed section and content) Specialty Diagnoses / Procedures Referred By Contac t Referred To Contact Radiology Diagnoses Pleomorphic adenoma of parotid gland Procedures CT SOFT TISSUE NECK W CONTRAST Bill Brown MD [address] [facility] [address] [place] [address] Referral ID Status Reason Start Date Expiration Date Visits Re quested Visits Authorized [id number] Closed 05/01/2024 07/29/2024 1 1 FOR RECORDS [...] BE BASED ON THE PRIMARY CLINICAL RECORDS. [employer] provides no warranty or guarantee of the accuracy or completeness of information in this document.
[2025-01-16 11:39] LABS: Alanine Aminotransferase 23 U/L (14-59); Albumin Globulin Ratio 0.9; Alkaline Phosphatase 110 U/L (46-116); Anion Gap 9.5; Aspartate Amino Transferase 17 U/L (15-37); BUN Creatinine Ratio 20.7; Bilirubin Total 0.3 mg/dL (0.2-1.0); Calcium 8.9 mg/dL (8.5-10.1); Chloride 105 mmol/L (98-107); Estimated GFR (African America >60 (>=60 mL/min/1.73m^2); Estimated GFR (Non-African Ame >60 (>=60 mL/min/1.73m^2); Globulin 3.3 g/dL; Glucose 84 mg/dL (74-106); Potassium 4.5 mmol/L (3.5-5.1); Sodium 141 mmol/L (136-145); Total Protein 6.3 g/dL (6.4-8.2)
== END 2025-01-16 10:47 | disposition home or self-care (01) ==
LOC: LAB 10:47
PROVIDERS: PCP Family Medicine; Visit Provider Family Medicine
DX: N17.9 Acute kidney failure, unspecified (principal)
CPT/HCPCS: 36415; 80053

== ENCOUNTER 2025-03-19 20:20 | Outpatient (REF) | payer OTHER, SELFPAY ==
--- OUTSIDE RECORDS SUMMARY | 2025-01-16 11:10 | XMS_ITS ---
Author Organization [facility] [place] Address [address] [place] [address] Care Team Providers Care Wire Frame Maker Name Role Phone TarikpacoMalachi Primary Care Provider REASON FOR VISIT labs Encounters Encounter Location Date Provider Diagnosis [facility] [address] [place] [address] 01/16/2025 Malachi Ledesma Plan Of Treatment Next Appt Details Provider Name:Malachi Ledesma, 08:30:00 AM, [address] [place], [address], Progress Notes * Elvi MOORE LDOB:[birth year] (44 yo F)Acc No.[id number]:01/16/2025 Patient: Daysi MOSER Elvi Paiz :1980 A ge:44 Y S ex:Female [address] [place] [address] * true * Date: Generated for Onelia kruger/Dipesh/eTransmitting on: 0 03/19/2025 08:23 PM EDT
--- OUTSIDE RECORDS SUMMARY | 2025-02-05 09:39 | XMS_ITS ---
Author Organization [facility] [place] Address [address] [place] [address] Care Team Providers Care Obiee Obia Solution Architect Name Role Phone Malachi Ledesma Primary Care Provider REASON FOR VISIT refill Medications Medication SIG (Take, Route, Fr equency, Duration) Notes Start Date End Date Status Promethazine HCl 25 MG 1 tablet as neede d Orally q6h for 30 days PRN 08/13/2023 Active Encounters Encounter Location Date Provider Diagnosis [facility] [address] [place] [address] 02/05/2025 Malachi Ledesma Dehydration E86.0 Assessments Encounter Date Diagnosis (ICD Code) Assessment Notes Treatment Notes Treatment Clinical Notes Section Notes 02/05/2025 Dehydration (ICD-10 - E86.0) Plan Of Treatment Medication Medication Name Sig Start Date Stop Date Notes Promethazine HCl 25 MG 1 tablet as neede d Orally q6h for 30 days 08/13/2023 PRN Next Appt Details Provider Name:Malachi Ledesma, 08:30:00 AM, [address] [place], [address], Progress Notes * Elvi MOORE LDOB:[birth year] (44 yo F)Acc No.[id number]:02/05/2025 Patient: Daysi MOSER Elvi Paiz :1980 A ge:44 Y S ex:Female Address:[facility] [address] [place] [address] * Refills Refill Promethazine HCl Tablet, 25 MG, Orally, 60, 1 tablet as needed, q6h, 30 days, Refills=11 * true * Date: Generated for Onelia kruger/Dipesh/Aviva on: 0 03/19/2025 08:24 PM EDT
--- OUTSIDE RECORDS SUMMARY | 2025-03-12 13:15 | XMS_ITS ---
Author Organization [facility] [place] Address [address] [place] [address] Care Team Providers Care Manager Hi Name Role Phone Malachi Ledesma Primary Care Provider [phone] Allergies Allergen (clinical drug ingredient) Drug/Non Drug Allergy documented on EMR Reaction Allergy Type Onset Date Status meperidine Demerol Unknown Drug Allergy Active Compazine hallucinating Drug Allergy Act zohaib ketorolac Ketorolac Unknown Drug Allergy Active REASON FOR VISIT kidney stone, pain in kidney areas, thinks kidney stones Medications Medication SIG (Take, Route, Frequency, Duration) Notes Start Date End Date Status Meclizine HCl 25 MG 1 tablet as needed O rally every 12 hrs 05/04/2024 Active One A Day Women 50 Plus - as directed Orally Active Ozempic (0.25 or 0.5 MG/DOSE) 2 MG/3ML 0.25 mg Subcutaneous weekly for 28 days 12/01/2024 Active Pantoprazole Sodium 40 MG Take 2 tablets by mouth once daily. for 90 Active Lisinopril 10 MG 1 tablet Orally Once a day for 30 days 12/01/2024 Active Flomax 0.4 MG 1 capsule Orally Onc e a day for 30 days 01/12/2025 Active HYDROcodone-Acetaminophen 5-325 MG 1 tablet as needed Orally BID as needed (PAIN CLINIC) PRN Active Hyoscyamine Sulfate 0.125 MG 1-2 tabs SL SL every 4 hrs PRN abd pain 09/26/2024 Active Hyoscyamine Sulfate 0.125 MG 1-2 tabs SL SL every 4 hrs PRN abd pain 01/12/2025 Active Imitrex 100 MG 1 tablet at least 2 hours between doses as needed Orally Twice a day for 10 PRN 08/17/2023 Active Carafate 1 GM 1 tablet on an empty stomach Orally QID Active CeleXA 10 MG 1 tablet Orally Once a day for 30 days 12/01/2024 Active Cyanocobalamin 1000 MCG/ML 1 mL Injectio n once a month Active Dicyclomine HCl 20 MG 1 tablet Orally QI D for 30 days 10/23/2024 Active Ferrous Sulfate 325 (65 Fe) MG 1 tablet Orally Once a day Active Calcium 600 MG 2 tablet with meals Orally Once a day Active Ondansetron 4 MG 1 tablet on the tong ue and allow to dissolve Orally qid 03/12/2025 Active Cephalexin 500 MG 2 tabs Orally bid fo r 10 days 03/12/2025 Active Albuterol Sulfate (2.5 MG/3ML) 0.083% 3 mL as needed Inhalation every 6 hrs 12/03/2023 Active Amitriptyline HCl 100 MG 1 tablet Orally at bedtime for 30 days Active Triamcinolone Acetonide 0.1 % 1 application Externally Twice a day for 30 11/22/2023 Active Wegovy 0.25 MG/0.5ML 0.25 mg Subcutaneou s weely for 30 days 12/06/2024 Active Adipex-P 37.5 MG 1 tablet before maria eugenia kfast Orally Once a day 03/12/2025 Active tiZANidine HCl 4 MG 2 capsules Orally Q HS for 30 days Active Topamax 50 MG 1 tablet Orally Once a day for 30 days 09/13/2023 Active Pregabalin 50 MG 1 capsule Orally BID Active Premarin 0.625 MG/GM 0.625 Vaginal Once a day 06/12 Active Promethazine HCl 25 MG 1 suppository as needed Rectal every 6 hrs for 2 days 12/13/2024 Active Promethazine HCl 25 MG 1 tablet as neede d Orally q6h for 30 days PRN 08/13/2023 Active Reglan 10 MG 1 tablet as needed O rally every 4 hrs for 30 days 01/20/2023 Active Social History Tobacco Use: Social History Observation Description Date Details (start date - stop date) Former Smoker 10/11/1997 - 10/11/2018 Tobacco Use/Smoking Question Answer Notes Patient is a former smoker When did you start smoking? 10/11/1997 When did you stop smoking? 10/11/2018 How long has it been since you last smoked? 1-5 years Vital Signs Weight 175.4 lbs 03/12/2025 Height 66 in 03/12/2025 Blood pressure systolic 116 mm Hg 03/12/20 25 Blood pressure diastolic 82 mm Hg 025 BMI 28.31 kg/m2 03/12/2025 Encounters Encounter Location Date Provider Diagnosis [facility] [address] [place] [address] 03/12/2025 Malachi Hoy UTI (urinary tract infection), uncomplicated N39.0 ; Dysuria R30.0 and Hypertension I10 Assessments Encounter Date Diagnosis (ICD Code) Assessment Notes Treatment Notes Treatment Clinical Notes Section Notes 03/12/2025 UTI (urinary tract infection), uncomplicated (ICD-10 - N39.0) Drink plenty of water. Avoid drinks like coffee, alcohol and soft frinks, as these can irritate your bladder and aggravate your frequent or urgent need to urinate. Apply a warm heating pad to your abdomen to minimize bladder pressure or discomfort. You have been prescribed antibiotics for a urinary tract infection. Antibiotics may bother your stomach, so try taking them with a light meal (unless instructed otherwise by your pharmacist). It is important to take them until they are finished. You can use vlyu-trz-wjehgcl acetaminophen or ibuprofen if needed for pain. You should follow up with your Primary Care Physician or return to clinic if not improving in the next 3-5 days. 03/12/2025 Dysuria (ICD-10 - R30.0) 03/12/2025 Hypertension (ICD-10 - I10) Plan Of Treatment Medication Medication Name Sig Start Date Stop Date Notes Ondansetron 4 MG 1 tablet on the tong ue and allow to dissolve Orally qid 03/12/2025 Cephalexin 500 MG 2 tabs Orally bid for 10 days 03/12/2025 Adipex-P 37.5 MG 1 tablet before maria eugenia kfast Orally Once a day 03/12/2025 Treatment Notes Assessment Notes UTI (urinary tract infection ), uncomplicated Drink plenty of water. Avoid drinks like coffee, alcohol and soft frinks, as these can irritate your bladder and aggravate your frequent or urgent need to urinate. Apply a warm heating pad to your abdomen to minimize bladder pressure or discomfort. You have been prescribed antibiotics for a urinary tract infection. Antibiotics may bother your stomach, so try taking them with a light meal (unless instructed otherwise by your pharmacist). It is important to take them until they are finished. You can use csmy-ljw-[id number] acetaminophen or ibuprofen if needed for pain. You should follow up with your Primary Care Physician or return to clinic if not improving in the next 3-5 days. Pending Test Test Name Order Date GLYCOHEMOGLOBIN A1C 03/12/2025 PROF 14(COMP METB) 03/12/2025 Next Appt Details Follow Up: 3-5 days if no im provement, Reason: Provider Name:Malachi Ledesma, 08:30:00 AM, [address] [place], [address], Progress Notes * Elvi MOORE LDOB:[birth year] (44 yo F)Acc No.[id number]:03/12/2025 Progress Note Patient: Elvi MENDIOLA L Provider: Gee Ledesma ([facility])MD :1980 A ge:44 Y S ex:Female Date:03/12/2025 Address:[address] [place], [place] [id number] Check In:05:19 PM ESTCheck O ut:06:10 PM EST Subjective: * Chief Complaints: * K idney stonePain in kidney areasThinks kidney stones * HPI: G eneral: R ear pain and bl;adder spasms and kidney ston epaion needs refill zonfaran. U TI: The patient complains of s ymptoms of UTI. The symptoms have been present for 1 -2 days. The symptoms are m oderate. Symptomatic treatment has included O TC Medication. Associated symptoms include i ncreased urge to urinate, painful urination, pelvic pain. * ROS: G eneral/Constitutional: Malaise d enies. C hills d enies. F ever d enies. S kin: Rash d enies. C ardiovascular: Edema d enies. P alpitations d enies. ? R espiratory: Chest pain d enies. C ough d enies. ? G astrointestinal: Abdominal pain d enies. N ausea d enies. V omiting d enies. G enitourinary: Comments S [facility] for details. S kin: Rash d enies. * Active Problem List E86.0 Dehydration Modified On:08/20/2023 Status:confirmed H60.90 Unspecified otitis e xterna, unspecified ear Modified On:01/26/2023 Status:confirmed H72.2X2 Other marginal perfo rations of tympanic membrane, left ear Modified On:01/26/2023 Status:confirmed J01.11 Acute recurrent fron thao sinusitis Modified On:01/26/2023 Status:confirmed M24.573 Contracture, unspeci fied ankle Modified On:01/26/2023 Status:confirmed N30.80 Other cystitis witho ut hematuria Modified On:01/26/2023 Status:confirmed S83.422A Sprain of lateral co llateral ligament of left knee, initial encounter Modified On:01/26/2023 Status:confirmed T50.905A Adverse effect of un specified drugs, medicaments and biological substances, initial encounter Modified On:01/26/2023 Status:confirmed Z20.828 Contact with and (beltran spected) exposure to other viral communicable diseases Modified On:01/26/2023 Status:confirmed Z87.448 Personal history of other diseases of urinary system Modified On:01/26/2023 Status:confirmed I10 Hypertension Modified On:01/26/2023 Status:confirmed M19.90 Osteoarthritis Modified On:01/26/2023 Status:confirmed K44.9 Hiatal hernia Modified On:01/26/2023 Status:confirmed M25.569 Knee pain Modified On:01/26/2023 Status:confirmed N64.52 Discharge from right nipple Modified On:01/26/2023 Status:confirmed K52.9 Colitis Modified On:01/26/2023 Status:confirmed Z00.00 Well adult Modified On:01/26/2023 Status:confirmed M79.602 Arm pain, left Modified On:01/26/2023 Status:confirmed K57.92 Diverticulitis Modified On:01/26/2023 Status:confirmed H66.92 Otitis media of left ear Modified On:01/26/2023 Status:confirmed M72.2 Plantar fasciitis Modified On:01/26/2023 Status:confirmed N12 Pyelonephritis Modified On:01/26/2023 Status:confirmed K25.3 Acute gastric ulcer Modified On:01/26/2023 Status:confirmed J30.2 Allergic rhinitis, s easonal Modified On:01/26/2023 Status:confirmed G43.009 Common migraine Modified On:01/26/2023 Status:confirmed K57.90 Diverticular disease Modified On:01/26/2023 Status:confirmed D66 Hemophilia Modified On:01/26/2023 Status:confirmed H81.399 Vertigo, peripheral Modified On:01/26/2023 Status:confirmed E53.8 Cobalamin deficiency Modified On:01/26/2023 Status:confirmed N83.209 Cyst, ovarian Modified On:01/26/2023 Status:confirmed K28.9 Gastrojejunal ulcer Modified On:01/26/2023 Status:confirmed N64.59 Inversion of right n ipple Modified On:01/26/2023 Status:confirmed U07.1 COVID-19 virus infec tion Modified On:01/26/2023 Status:confirmed M54.50 Low back pain, unspe cified Modified On:01/26/2023 Status:confirmed D50.9 Microcytic anemia Modified On:08/17/2023 Status:confirmed D50.9 Iron deficiency anem ia, unspecified Modified On:05/31/2023 Status:confirmed N89.8 Vaginal dryness Modified On:07/05/2023 Status:confirmed G43.909 Migraine Modified On:09/13/2023 Status:confirmed E16.2 Hypoglycemia Modified On:09/16/2023 Status:confirmed Z01.818 Pre-op exam Modified On:09/23/2023 Status:confirmed R42 Vertigo Modified On:11/03/2023 Status:confirmed L50.9 Urticaria Modified On:11/22/2023 Status:confirmed I10 BP (high blood press ure) Modified On:04/12/2024 Status:confirmed K21.9 GERD (gastroesophage al reflux disease) Modified On:04/12/2024 Status:confirmed D50.9 Anemia, iron deficie ncy Modified On:04/12/2024 Status:confirmed G47.00 Insomnia Modified On:04/12/2024 Status:confirmed I65.09 Vertebral artery occ lusion, unspecified laterality Modified On:05/31/2024 Status:confirmed N76.0 Vaginitis Modified On:08/23/2024 Status:confirmed M53.86 Low back derangement syndrome Modified On:09/05/2024 Status:confirmed N20.0 Nephrolithiasis Modified On:12/07/2024 Status:confirmed N17.9 Acute kidney injury Modified On:01/16/2025 Status:confirmed * Medical History: * Surgical History: G allbladder Appendix Hysterectomy Gastric Bypass 2017Left Knee Replacement x 2 EGD 10/27/2023Superficial Parotidectomy 08/03 * Hospitalization/Major Diagno stic Procedure: s ee above Ulcerative Colitis 2023 * Family History: F ather: , diagnosed with Unspecified essential hypertension, Diabetes mellitus without mention of complication, type II or unspecified type, not stated as uncontrolled, Other malignant neoplasm of unspecified site. M other: alive. S ister(s): alive. B valentina(s): diagnosed with Other malignant neoplasm of unspecified site. dad- brain tumor cancer mom- brain tumor NON cancer sister- breast cancer. * Social History: T obacco Use: T obacco Use/Smoking P atient is a f ormer smoker W hen did you start smoking? 0 10/11/1997 W hen did you stop smoking? 0 10/11/2018 H ow long has it been since you last smoked??1-5 years * Medications: T akingAlbuterol Sulfate (2.5 MG/3ML) 0.083% Nebulization Solution 3 mL as needed Inhalation every 6 hrs Amitriptyline HCl 100 MG Tablet 1 tablet Orally at bedtime Calcium 600 MG Tablet 2 tablet with meals Orally Once a day Carafate(Sucralfate) 1 GM Tablet 1 tablet on an empty stomach Orally QID CeleXA(Citalopram Hydrobromide) 10 MG Tablet 1 tablet Orally Once a day Cyanocobalamin 1000 MCG/ML Solution 1 mL Injection once a month Dicyclomine HCl 20 MG Tablet 1 tablet Orally QID Ferrous Sulfate 325 (65 Fe) MG Tablet 1 tablet Orally Once a day Flomax 0.4 MG Capsule 1 capsule Orally Once a day HYDROcodone-Acetaminophen 5-325 MG Tablet 1 tablet as needed Orally BID as needed (PAIN CLINIC) , Notes to Pharmacist: PRNHyoscyamine Sulfate 0.125 MG Tablet 1-2 tabs SL SL every 4 hrs PRN abd pain Hyoscyamine Sulfate 0.125 MG Tablet Sublingual 1-2 tabs SL SL every 4 hrs PRN abd pain Imitrex(SUMAtriptan Succinate) 100 MG Tablet 1 tablet at least 2 hours between doses as needed Orally Twice a day , Notes to Pharmacist: PRNLisinopril 10 MG Tablet 1 tablet Orally Once a day Meclizine HCl 25 MG Tablet 1 tablet as needed Orally every 12 hrs One A Day Women 50 Plus(Multiple Vitamins-Minerals) - Tablet Chewable as directed Orally Ozempic (0.25 or 0.5 MG/DOSE)(Semaglutide(0.25 or 0.5MG/DOS)) 2 MG/3ML Solution Pen-injector 0.25 mg Subcutaneous weekly Pantoprazole Sodium 40 MG Tablet Delayed Release Take 2 tablets by mouth once daily. Pregabalin 50 MG Capsule 1 capsule Orally BID Premarin(Estrogens Conjugated) 0.625 MG/GM Cream 0.625 Vaginal Once a day Promethazine HCl 25 MG Suppository 1 suppository as needed Rectal every 6 hrs Promethazine HCl 25 MG Tablet 1 tablet as needed Orally q6h , Notes to Pharmacist: PRNReglan(Metoclopramide HCl) 10 MG Tablet 1 tablet as needed Orally every 4 hrs tiZANidine HCl 4 MG Tablet 2 capsules Orally Q HS Topamax(Topiramate) 50 MG Tablet 1 tablet Orally Once a day Triamcinolone Acetonide 0.1 % Cream 1 application Externally Twice a day Wegovy(Semaglutide-Weight Management) 0.25 MG/0.5ML Solution Auto-injector 0.25 mg Subcutaneous weely Medication List reviewed and reconciled with the patientTaking Albuterol Sulfate (2.5 MG/3ML) 0.083% Nebulization Solution 3 mL as needed Inhalation every 6 hrs Taking Amitriptyline HCl 100 MG Tablet 1 tablet Orally at bedtime Taking Calcium 600 MG Tablet 2 tablet with meals Orally Once a day Taking Carafate(Sucralfate) 1 GM Tablet 1 tablet on an empty stomach Orally QID Taking CeleXA(Citalopram Hydrobromide) 10 MG Tablet 1 tablet Orally Once a day Taking Cyanocobalamin 1000 MCG/ML Solution 1 mL Injection once a month Taking Dicyclomine HCl 20 MG Tablet 1 tablet Orally QID Taking Ferrous Sulfate 325 (65 Fe) MG Tablet 1 tablet Orally Once a day Taking Flomax 0.4 MG Capsule 1 capsule Orally Once a day Taking HYDROcodone-Acetaminophen 5-325 MG Tablet 1 tablet as needed Orally BID as needed (PAIN CLINIC) , Notes to Pharmacist: PRNTaking Hyoscyamine Sulfate 0.125 MG Tablet 1-2 tabs SL SL every 4 hrs PRN abd pain Taking Hyoscyamine Sulfate 0.125 MG Tablet Sublingual 1-2 tabs SL SL every 4 hrs PRN abd pain Taking Imitrex(SUMAtriptan Succinate) 100 MG Tablet 1 tablet at least 2 hours between doses as needed Orally Twice a day , Notes to Pharmacist: PRNTaking Lisinopril 10 MG Tablet 1 tablet Orally Once a day Taking Meclizine HCl 25 MG Tablet 1 tablet as needed Orally every 12 hrs Taking One A Day Women 50 Plus(Multiple Vitamins-Minerals) - Tablet Chewable as directed Orally Taking Ozempic (0.25 or 0.5 MG/DOSE)(Semaglutide(0.25 or 0.5MG/DOS)) 2 MG/3ML Solution Pen-injector 0.25 mg Subcutaneous weekly Taking Pantoprazole Sodium 40 MG Tablet Delayed Release Take 2 tablets by mouth once daily. Taking Pregabalin 50 MG Capsule 1 capsule Orally BID Taking Premarin(Estrogens Conjugated) 0.625 MG/GM Cream 0.625 Vaginal Once a day Taking Promethazine HCl 25 MG Suppository 1 suppository as needed Rectal every 6 hrs Taking Promethazine HCl 25 MG Tablet 1 tablet as needed Orally q6h , Notes to Pharmacist: PRNTaking Reglan(Metoclopramide HCl) 10 MG Tablet 1 tablet as needed Orally every 4 hrs Taking tiZANidine HCl 4 MG Tablet 2 capsules Orally Q HS Taking Topamax(Topiramate) 50 MG Tablet 1 tablet Orally Once a day Taking Triamcinolone Acetonide 0.1 % Cream 1 application Externally Twice a day Taking Wegovy(Semaglutide-Weight Management) 0.25 MG/0.5ML Solution Auto-injector 0.25 mg Subcutaneous weely Medication List reviewed and reconciled with the patient * Allergies: D emerol - Criticality HighKetorolac - Criticality LowCompazine: hallucinatingno[Allergies Verified] Objective: * Vitals: W t:175.4lbs, Ht: 66 in, BP:116/82mm Hg, BMI:28.31Index, Ht-cm: 167.64 cm, Wt-k.56 kg. * Examination: G eneral Examination: GENERAL APPEARANCE: w ell developed, well nourished, in no acute distress. ENT: ear and nose external appearance normal. ENMT: tongue, hard and soft palate and posterior pharynx appear normal. LYMPH NODES: n o axillary, supraclavicular or inguinal adenopathy. LUNGS: c lear to auscultation bilaterally. CARDIO: S 1, S2 normal, no murmurs, rubs, gallops. ABDOMEN: s oft, nontender, nondistended. GENITOURINARY: Bladder non-distended, urethra normal.? MUSCULOSKELETAL: full range of motion. SKIN: no rashes, warm and dry. NEUROLOGIC: alert and oriented to time, place, & person. PSYCH: mood/affect full range. Assessment: * Assessment: 1. U TI (urinary tract infection), uncomplicated - N39.0 (Primary) 2 . D ysuria - R30.0 3 . H ypertension - I10 Plan: * Treatment: 2. D ysuria L AB: GLYCOHEMOGLOBIN A1C L AB: PROF 14(COMP METB) 3. H ypertension Start Adipex-P Tablet, 37.5 MG, 1 tablet before breakfast, Orally, Once a day, 30. * Procedure Codes: 8 1000 URINALYSIS, Modifiers: QW * Preventive Medicine: Screenings/Counseling: B ME ACTION PLAN Above Normal BMI Follow-up D ietary management education, guidance, and counseling * Follow Up: 3 -5 days if no improvement * * Sign off status: Completed Visit Status: C HK (Check Out) true * Provider: Gee Ledesma ([facility])MD Date: 03/12/2025 Generated for Inai slick/Dipesh/eTransmitting on: 03/19/2025 03:57 PM EDT History and Physical Notes * HPI (History of Present Illness) Category Sub-Category Detail Notes Category Not es General R ear pain and bl;adder spasms and kidney ston epaion needs refill zonfaran UTI The patient complains of symptoms of UTI The symptoms have been present for 1-2 d ays The symptoms are moderate Symptomatic treatment has included OTC M edication Associated symptoms include increased ur ge to urinate, painful urination, pelvic pain Examination Category Sub-Category Detail Notes Category Not es General Examination GENERAL APPEARANCE: well dev eloped, well nourished, in no acute distress ENT: ear and nose externa l appearance normal CARDIO: S1, S2 normal, no mu rmurs, rubs, gallops LUNGS: clear to auscultatio n bilaterally ABDOMEN: soft, nontender, non distended NEUROLOGIC: alert and oriented t o time, place, & person SKIN: no rashes, warm and dry MUSCULOSKELETAL: full range of motion LYMPH NODES: no axillary, supracl avicular or inguinal adenopathy PSYCH: mood/affect full ran ge ENMT: tongue, hard and sof t palate and posterior pharynx appear normal GENITOURINARY: Bladder non-distende d, urethra normal
--- OUTSIDE RECORDS SUMMARY | 2025-03-19 16:00 | XMS_ITS | Encounter Summary ---
Author Organization [facility] Address [address] [place] [address] Care Team Providers Care Quiller Tender Name Role Phone Unavailable Primary Care Provider Unavailabl e Reason for Visit * Reason Comments Well Women Visit Encounter Details Date Type Department Care Team (Late Contact Info) Description 03/19/2025 4:00 PM EDT Office Visit [facility] [address] [place] [address] Eduardo Freedman DO [facility] Aurea Amaya, [facility]11 Well woman exam with routine gynecological exam; Breast cancer screening by mammogram Social History Tobacco Use Types Packs/Day Years Used Date Smoking Tobacco: Never Assessed Comments Unknown Sex and Gender Information Value Date Recorded Sex Assigned at Not on file Legal Sex Female 6:47 PM EDT Gender Identity Not on file Sexual Orientation Not on file documented as of this encounter Last Filed Vital Signs Vital Sign Reading Time Taken Comments Blood Pressure 112/72 03/19/2025 4:20 PM EDT Pulse - - Temperature - - Respiratory Rate - - Oxygen Saturation - - Inhaled Oxygen Concentration - - Weight 77.5 kg (170 lb 12.8 oz) 03/19/2025 4:20 PM EDT Height - - Body Mass Index 26.75 07/02/2021 12:00 PM EDT documented in this encounter Plan of Treatment Upcoming Encounters Date Type Department Care Team (Late Contact Info) Description 03/21/2026 9:00 AM EDT Office Visit [facility] [address] [place] [address] Eduardo Freedman DO [address] [place] [address] [place] [address] Scheduled Orders Name Type Priority Associated Diagnoses Orde r Schedule Bilateral screening mammogram Imaging Routine Breast cancer screening by mammogram Expected: 03/19/2025 (Approximate), Expires: 05/19/2026 THIN PREP TIS PAP AND HR HPV DNA Pathology and Cytology Routine Well woman exam with routine gynecological exam Ordered: 03/19/2025 documented as of this encounter Visit Diagnoses Diagnosis Well woman exam with routine gynecological exam Routine gynecological examination Breast cancer screening by mammogram documented in this encounter
--- OUTSIDE RECORDS SUMMARY | 2025-03-19 20:24 | XMS_ITS | Encounter Summary ---
Author Organization [facility] Address [id number] [address] [place] [address] Care Team Providers Care Director Of Rooms Name Role Phone Yasir Ledesma MD Primary Care Provider [phone] Reason for Visit * Reason Onset Date Comments Med Refill 07/29/2022 Encounter Details Date Type Department Care Team (Late st Contact Info) Description 07/29/2022 Refill [facility] [address] [place] [id number] Ashok Marcial, BUSINESS PROCESS ASSOCIATE[employer] [address] [place] [address] Social History Tobacco Use Types Packs/Day Years Used Date Smoking Tobacco: Former Cigarettes 1 15 0 10/19/2000 - 10/19/2015 Smokeless Tobacco: Never Alcohol Use Standard Drinks/Week Comments No 0 (1 standard drink = 0.6 oz pur e alcohol) PHQ-2 Answer Date Recorded Total Score 0 06/15/2018 Childcare Answer Date Recorded Childcare Unknown 03/22/2019 Employment Answer Date Recorded Employment Unknown 03/22/2019 Purpose - Life Answer Date Recorded Purpose and direction in life Unknown Comments No Sex and Gender Information Value Date Recorded Sex Assigned at Not on file Legal Sex Female 11:21 AM EDT Gender Identity Not on file Sexual Orientation Not on file 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
--- OUTSIDE RECORDS SUMMARY | 2025-03-19 20:24 | XMS_ITS | Encounter Summary ---
Author Organization [facility] Address [address] [place] [address] Care Team Providers Care Ethylene Plant Operator Name Role Phone Yasir Ledesma MD Primary Care Provider [phone] Tyrel King MD Unavailable Reason for Visit * Reason Onset Date Comments Med Refill 01/28/2023 Encounter Details Date Type Department Care Team (Late st Contact Info) Description 01/28/2023 Refill [facility] Pain Medicine [address] [facility] [place] [address] Nohelia Reece, ECOTHERAPIST [address] [place] [address] Complex regional pain syndrome type 1 of left lower extremity Social History Tobacco Use Types Packs/Day Years Used Date Smoking Tobacco: Former Cigarettes 0 12/18/1997 - 01/19/2017 Passive Smoke Exposure: Current Smokeless Tobacco: Never Alcohol Use Standard Drinks/Week Comments Never 0 (1 standard drink = 0.6 oz pur e alcohol) Humiliation, Afraid, Rape, and Kick questionnair e Answer Date Recorded Within the last year, have y ou been afraid of your partner or ex-partner? No 08/13/2022 Within the last year, have y ou been humiliated or emotionally abused in other ways by your partner or ex-partner? No Within the last year, have y ou been kicked, hit, slapped, or otherwise physically hurt by your partner or ex-partner? No 08/13/2022 Within the last year, have y ou been raped or forced to have any kind of sexual activity by your partner or ex-partner? No 08/13/2022 Social Connection and Isolat ion Panel [NHANES] Answer Date Recorded In a typical week, how many times do you talk on the phone with family, friends, or neighbors? More than three times a week 08/13/2022 How often do you get togethe r with friends or relatives? Once a week 08/13/2022 How often do you attend chur ch or restorationism services? More than 4 times per year 08/13/2022 Do you belong to any clubs o r organizations such as muslim groups, unions, fraternal or athletic groups, or school groups? Yes 08/13/2022 How often do you attend meet ings of the clubs or organizations you belong to? More than 4 times per year 08/13/2022 Are you , , di vorced, , never , or living with a partner? 08/13/2022 AUDIT-C Answer Date Recorded Q1: How often do you have a drink containing alcohol? Never 08/13/2022 Q2: How many drinks containi ng alcohol do you have on a typical day when you are drinking? Patient does not drink Q3: How often do you have si x or more drinks on one occasion? Never 08/13/2022 Overall Financial Resource Strain (CARDIA) Answe r Date Recorded How hard is it for you to pa y for the very basics like food, housing, medical care, and heating? Somewhat hard 08/13/2022 PHQ-2 Answer Date Recorded Patient Health Questionnaire-2 Score 0 01/08/2023 [facility] of Occupat ionin Health - Occupational Stress Questionnaire Answer Date Recorded Do you feel stress - tense, restless, nervous, or anxious, or unable to sleep at night because your mind is troubled all the time - these days? Not at all 08/13/2022 Exercise Vital Sign Answer Date Recorde d On average, how many days pe r week do you engage in moderate to strenuous exercise (like a brisk walk)? 1 day 08/13/2022 On average, how many minutes do you engage in exercise at this level? 20 min 08/13/2022 Hunger Vital Sign Answer Date Recorded Within the past 12 months, y ou worried that your food would run out before you got the money to buy more. Never true 08/13/20 22 Within the past 12 months, t he food you bought just didn't last and you didn't have money to get more. Never true 08/13/2022 PRAPARE - Transportation Answer Date Re corded In the past 12 months, has l ack of transportation kept you from medical appointments or from getting medications? No 12/2021 In the past 12 months, has l ack of transportation kept you from meetings, work, or from getting things needed for daily living? No 08/13/2022 Housing Stability Vital Sign Answer Jesse e Recorded In the last 12 months, was t here a time when you were not able to pay the mortgage or rent on time? No 08/13/2022 In the last 12 months, how many places have you lived? 2 08/13/2022 In the last 12 months, was t here a time when you did not have a steady place to sleep or slept in a longterm (including now)? No 08/13/2022 Sex and Gender Information Value Date Recorded Sex Assigned at Female 07/19/2024 8:01 AM EDT Gender Identity Female 07/19/2024 8:01 AM EDT Sexual Orientation Don't know 07/19/2024 8: 01 AM EDT COVID-19 Exposure Response Date Recorded In the last 10 days, have yo u been in contact with someone who was confirmed or suspected to have Coronavirus/COVID-19? No / Unsure 01/08/2023 8:27 AM EDT documented as of this encounter Plan of Treatment Upcoming Encounters Date Type Department Care Team (Late st Contact Info) Description 04/20/2025 8:30 AM EDT [facility] [address] [place] [address] [place] [address] Nohelia Reece, ECOTHERAPIST [address] [place] [address] documented as of this encounter Visit Diagnoses Diagnosis Complex regional pain syndrome type 1 of left lower extremity documented in this encounter Care Teams Ethylene Plant Operator Relationship Specialty Start Date End Date Yasir Ledesma MD [address] [facility] [address] [address] PCP - General 05/26/22 Tyrel King MD [address] [place], [place] Referring Physician Geriatric Medicine 11/03/22 documented as of this encounter
--- OUTSIDE RECORDS SUMMARY | 2025-03-19 20:24 | XMS_ITS | Encounter Summary ---
Author Organization [facility] Address [address] [place] [address] Care Team Providers Care Windows Software Developer Name Role Phone Yasir Ledesma MD Primary Care Provider [phone] Tyrel King MD Unavailable Reason for Visit * Reason Onset Date Comments Med Refill 01/28/2023 Encounter Details Date Type Department Care Team (Late st Contact Info) Description 01/28/2023 Refill [facility] Medical [facility] Pain Medicine [address] [facility] [place] [address] Nohelia Reece, SUPERVISOR SEWING ROOM [address] [place] [address] Complex regional pain syndrome type [...] often do you attend chur ch or uatsdin services? More than 4 times per year 08/13/2022 Do you belong to any clubs o r organizations such as episcopal groups, unions, fraternal or athletic groups, or [...] Recorded Patient Health Questionnaire-2 Score 0 01/08/2023 [facility] of Occupat ionpr Health - Occupational Stress Questionnaire Answer Date [...] place to sleep or slept in a assisted (including now)? No 08/13/2022 Sex and Gender [...] Info) Description 04/20/2025 8:30 AM EDT [facility] [address] [place] [address] [place] [address] Nohelia Reece, SUPERVISOR SEWING ROOM [address] [place] [address] documented as of this encounter Visit Diagnoses Diagnosis Complex regional pain syndrome type 1 of left lower extremity documented in this encounter Care Teams Windows Software Developer Relationship Specialty Start Date End Date Yasir Ledesma MD [address] [facility] [address] [address] PCP - General 05/26/22 Tyrel King MD [address] [place], [place] Referring Physician Geriatric Medicine 11/03/22 documented as of this encounter
--- OUTSIDE RECORDS SUMMARY | 2025-03-19 20:24 | XMS_ITS | Clinical Summary ---
Author Organization [facility] Address [address] [place] [address] Care Team Providers Care Linen Controller Name Role Phone Yasir Ledesma MD Primary Care Provider [phone] Allergies Active Allergy Reactions Criticality Noted Date Comments Prochlorperazine Hallucinations 04/18/2024 Desonide 01/08/2021 Ketorolac Tromethamine Rash,Other (See Comments) Low 08/22/2015 Meperidine Rash,Other (See Comments) Low 08/01/2013 Other reaction(s): Unknown Medications Multiple Vitamins-Minerals (MULTIVITAMIN ADULT PO) Take by mouth daily Active Ferrous Sulfate (IRON) 28 MG TABS Take by mouth daily Active Calcium Citrate-Vitamin D (CALCIUM CITRATE + D PO) Take by mouth 2 times daily Active sucralfate (CARAFATE) 1 GM tablet Take 1 tablet by mouth 4 times daily Active acetaminophen (TYLENOL) 500 MG tablet Take 2 tablets by mouth every 6 hours as needed for Pain Active ondansetron (ZOFRAN) 4 MG tablet Take 1 tablet by mouth every 4 hours as needed for Nausea or Vomiting 15 tablet 8 Active hyoscyamine (LEVSIN/SL) [address] 1 tablet under the tongue every 4 hours as needed for Cramping Active pantoprazole (PROTONIX) 20 MG tablet Take 2 tablets by mouth in the morning and at bedtime Active amitriptyline (ELAVIL) 100 MG tablet Take 1 tablet by mouth nightly 4 Active diclofenac sodium (VOLTAREN) 1 % GEL Apply 1 Application topically 4 times daily as needed 9 Active promethazine (PHENERGAN) 25 MG tablet Take 1 tablet by mouth every 6 hours as needed for Nausea 0 Active cyanocobalamin 1000 MCG/ML injection Monthly last dose was 06/2024 4 Active tiZANidine (ZANAFLEX) 4 MG tablet Take 1 tablet by mouth as needed 2 Active HYDROcodone-aceta minophen (NORCO) 5-325 MG per tablet Take 1 tablet by mouth every 8 hours as needed. 4 Active acetaminophen (TYLENOL) 325 MG tabletIndications :Acute postoperative pain Take 2 tablets by mouth every 6 hours as needed for Pain Alternate with Motrin so that you are taking something for pain every 3 hours 120 tablet 1 4 Active ibuprofen (IBU) 400 MG tabletIndications :Acute postoperative pain Take 1 tablet by mouth every 6 hours as needed for Pain (1-2 tabs (400-800mg) to alternate with Tylenol so that you are taking something for pain every 3 hours) 120 tablet 1 4 Active pregabalin (LYRICA) 50 MG capsule Take 1 capsule by mouth 2 times daily. 4 Active Active Problems Problem Noted Date Diagnosed Date Other microscopic hematuria 02/25/2018 Kidney stone 02/25/2018 Family History Medical History Relation Name Comments Other Father Breast Cancer Sister Relation Name Status Comments Father Mother Alive Sister Social History Tobacco Use Types Packs/Day Years Used Date Smoking Tobacco: Former Cigarettes Q uit: 06/2016 Passive Smoke Exposure: Past Smokeless Tobacco: Never Alcohol Use Standard Drinks/Week Comments No 0 (1 standard drink = 0.6 oz pur e alcohol) Interpersonal Safety Domain Source: IP Abuse Scr eening Answer Date Recorded Physical abuse Denies 07/13/2024 Verbal abuse Denies 07/13/2024 Emotional abuse Denies 07/13/2024 Financial abuse Denies 07/13/2024 Sexual abuse Denies 07/13/2024 Comments No Sex and Gender Information Value Date Recorded Sex Assigned at Not on file Legal Sex Female 2:06 PM EST Gender Identity Not on file Sexual Orientation Not on file Last Filed Vital Signs Vital Sign Reading Time Taken Comments Blood Pressure 135/95 07/25/2024 11:[address] Brown notified Pulse 84 07/25/2024 10:57 AM EDT Temperature 36.5 C (97.7 F) 07/25/2024 10:57 AM EDT Respiratory Rate 10 07/17/2024 11:0 0 AM EDT Oxygen Saturation 98% 07/25/2024 10: 57 AM EDT Inhaled Oxygen Concentration - - Weight 77.1 kg (170 lb) 07/25/2024 10:5 7 AM EDT Height 167.6 cm (5' 6 ) 07/25/2024 10:5 7 AM EDT Body Mass Index 27.44 07/25/2024 10:57 AM EDT Plan of Treatment Health Maintenance Due Date Last Done Comments Depression Screen 1993 Varicella vaccine (1 of 2 - 13+ 2-dose series) 1994 HIV screen 1996 Hepatitis C screen 12/31/1999 Hepatitis B vaccine (1 of 3 - 19+ 3-dose series) 2000 Diabetes screen 2016 DTaP/Tdap/Td vaccine (2 - Td or Tdap) 07/10/2021 07/10/2011 Breast cancer screen 2021 Lipids 2021 COVID-19 Vaccine ( season) 2024 07/29/2022, 10/08/2021, 01/30/2021, Additional history exists Flu vaccine (Season Ended) 05/11/202507/29, 07/11/2020, 07/03/2020, Additional history exists Pneumococcal 0-49 years Vaccine Aged Out 01/01/2016 No longer eligible based on patient's age to complete this topic HPV vaccine Aged Out No longer eligi ble based on patient's age to complete this topic Hepatitis A vaccine Aged Out No longe r eligible based on patient's age to complete this topic Hib vaccine Aged Out No longer eligi ble based on patient's age to complete this topic Meningococcal (ACWY) vaccine Aged Out No longer eligible based on patient's age to complete this topic Meningococcal B vaccine Aged Out No l onger eligible based on patient's age to complete this topic Polio vaccine Aged Out No longer elig ible based on patient's age to complete this topic Insurance [employer] Member Subscriber Plan / Payer (Ef fective 2022-Present) Name:Elvi Moore Izabel Relation to Subscriber:Self Name:Elvi Moore Payer ID:Not on file Type:Not on file Address: [place] [id number] [place] [id number] [employer] Member Subscriber Plan / Payer (Ef fective 2022-Present) Name:Elvi Moore Izabel Relation to Subscriber:Self Name:Elvi Moore Payer ID:Not on file Type:Not on file Address: [place] [id number] Care Teams Linen Controller Relationship Specialty Start Date End Date Yasir Ledesma MD [address] [place] [address] PCP - General 12/30/14
--- OUTSIDE RECORDS SUMMARY | 2025-03-19 20:24 | XMS_ITS | Encounter Summary ---
Author Organization [facility] Address [address] [place] [address] Care Team Providers Care Oil Burner Name Role Phone Yasir Ledesma MD Primary Care Provider [phone] Tyrel King MD Unavailable Reason for Visit * Reason Onset Date Comments Med Refill 01/17/2024 Encounter Details Date Type Department Care Team (Late st Contact Info) Description 01/17/2024 Refill [facility] Medical [facility] Pain Medicine [address] [place] [address] Nohelia Reece, PLANISHING PRESS OPERATOR [address] [place] [address] Complex regional pain syndrome type 1 of left lower extremity; Other chronic postprocedural pain Social History Tobacco Use Types Packs/Day Years Used Date Smoking Tobacco: Former Cigarettes Q uit: 12/18/1997 Passive Smoke Exposure: Current Smokeless Tobacco: Never Alcohol Use Standard Drinks/Week Comments Never 0 (1 standard drink = 0.6 oz pur e alcohol) Humiliation, Afraid, Rape, and Kick questionnair e Answer Date Recorded Within the last year, have y ou been afraid of your partner or ex-partner? No 12/24/2023 Emotionally Abused Not on file 12/24/2023 Physically Abused Not on file 12/24/2023 Sexually Abused Not on file 12/24/2023 Social Connection and Isolat ion Panel [NHANES] Answer Date Recorded In a typical week, how many times do you talk on the phone with family, friends, or neighbors? More than three times a week 08/13/2022 How often do you get togethe r with friends or relatives? Once a week 08/13/2022 How often do you attend chur ch or restoration services? More than 4 times per year 08/13/2022 Do you belong to any clubs o r organizations such as bahai groups, unions, fraternal or athletic groups, or [...] housing, medical care, and heating? Somewhat hard 06/01/2023 PHQ-2 Answer Date Recorded Patient Health Questionnaire-2 Score 2 12/24/2023 [facility] of Occupat ional [facility] - Occupational Stress Questionnaire Answer Date Recorded [...] exercise at this level? 20 min 08/13/2022 Transportation Answer Date Recorded In the past 12 months, has l ack of transportation kept you from medical appointments or from getting medications? No 06/01/2023 Lack of Transportation (Non-Medical) Not on file 06/01/2023 Housing Stability Vital Sign Answer Jesse e Recorded Unable to Pay for Housing in the Last Year Not o n file 06/01/2023 Number of Places Lived in the Last Year Not on f ile 06/01/2023 In the last 12 months, was t here a time when you did not have a steady place to sleep or slept in a [place] (including now)? No 06/01/2023 Hunger Vital Sign Answer Date Recorded Within the past 12 months, y ou worried that your food would run out before you got the money to buy more. Never true 06/01/20 23 Ran Out of Food in the Last Year Not on file 06/01/2023 Sex and Gender Information Value Date Recorded Sex Assigned at Female 07/19/2024 8:01 AM EDT Gender Identity Female 07/19/2024 8:01 AM EDT Sexual Orientation Don't know 07/19/2024 8: 01 AM EDT documented as of this encounter Plan of Treatment Upcoming Encounters Date Type Department Care Team (Late st Contact Info) Description 04/20/2025 8:30 AM EDT [facility] [address] [place] [address] [place] [address] Nohelia Reece, PLANISHING PRESS OPERATOR [address] [facility] [place] [address] documented as of this encounter Visit Diagnoses Diagnosis Complex regional pain syndrome type 1 of left lower extremity Other chronic postprocedural pain documented in this encounter Care Teams Oil Burner Relationship Specialty Start Date End Date Yasir Ledesma MD [address] [place] [place] [address] PCP - General 05/26/22 Tyrel King MD [address] [place] Referring Physician Geriatric Medicine 11/03/22 documented as of this encounter
--- OUTSIDE RECORDS SUMMARY | 2025-03-19 20:24 | XMS_ITS | Encounter Summary ---
Author Organization [facility] Address [address] [place] [address] Care Team Providers Care Salt Refiner Name Role Phone Yasir Ledesma MD Primary Care Provider [phone] Tyrel King MD Unavailable Reason for Visit * Reason Onset Date Comments Med Refill 12/15/2022 Encounter Details Date Type Department Care Team (Late st Contact Info) Description 12/15/2022 Refill [facility] Medical Pavilion Pain Medicine [address] [facility] [place] [address] Nohelia Reece, HAND TACKER [address] [place] [address] Chronic pain syndrome Social History Tobacco Use Types Packs/Day Years [...] often do you attend chur ch or spiritism services? More than 4 times per year 08/13/2022 Do you belong to any clubs o r organizations such as confucianist groups, unions, fraternal or athletic groups, or [...] Date Recorded Patient Health Questionnaire-2 Score 0 11/24/2022 [facility] of Occupat ionok Health - Occupational Stress Questionnaire Answer Date [...] place to sleep or slept in a detention (including now)? No 08/13/2022 Sex and Gender [...] suspected to have Coronavirus/COVID-19? No / Unsure 12/10/2022 9:33 AM EST documented as of this encounter Plan of Treatment Upcoming Encounters Date Type Department Care Team (Late st Contact Info) Description 04/20/2025 8:30 AM EDT Follow-Up [facility] Pain Medicine [address] [place] [address] [place] [address] Nohelia Reece, HAND TACKER [address] [place] [address] documented as of this encounter Visit Diagnoses Diagnosis Chronic pain syndrome documented in this encounter Care Teams Salt Refiner Relationship Specialty Start Date End Date Yasir Ledesma MD [address] [facility] [address] [address] PCP - General 05/26/22 Tyrel King MD [address] [place], [place] Referring Physician Geriatric Medicine 11/03/22 documented as of this encounter
--- OUTSIDE RECORDS SUMMARY | 2025-03-19 20:24 | XMS_ITS | Encounter Summary ---
Author Organization [facility] Address [address] [place] [address] Care Team Providers Care Junior Software Engineer Name Role Phone Yasir Ledesma MD Primary Care Provider [phone] Tyrel King MD Unavailable Reason for Visit * Reason Onset Date Comments Med Refill 03/01/2023 Encounter Details Date Type Department Care Team (Late st Contact Info) Description 03/01/2023 Refill [facility] Medical Pavilion Pain Medicine [address] [facility] [place] [address] Nohelia Reece, SITE HEAD [address] [place] [address] Complex regional pain syndrome type [...] often do you attend chur ch or catholic services? More than 4 times per year 08/13/2022 Do you belong to any clubs o r organizations such as yazidi groups, unions, fraternal or athletic groups, or [...] Recorded Patient Health Questionnaire-2 Score 0 01/08/2023 [facility] of Occupat ionaz Health - Occupational Stress Questionnaire Answer Date [...] place to sleep or slept in a senior living (including now)? No 08/13/2022 Sex and Gender [...] suspected to have Coronavirus/COVID-19? No / Unsure 02/18/2023 9:50 AM EDT documented as of this encounter Plan of Treatment Upcoming Encounters Date Type Department Care Team (Late st Contact Info) Description 04/20/2025 8:30 AM EDT [facility] [address] [place] [address] [place] [address] Nohelia Reece, SITE HEAD [address] [place] [address] documented as of this encounter Visit Diagnoses Diagnosis Complex regional pain syndrome type 1 of left lower extremity documented in this encounter Care Teams Junior Software Engineer Relationship Specialty Start Date End Date Yasir Ledesma MD [address] [facility] [address] [address] PCP - General 05/26/22 Tyrel King MD [address] [place], [place] Referring Physician Geriatric Medicine 11/03/22 documented as of this encounter
--- OUTSIDE RECORDS SUMMARY | 2025-03-19 20:24 | XMS_ITS | Encounter Summary ---
Author Organization [facility] Address [address] [place] [address] Care Team Providers Care Metal Fitters And Machinists Name Role Phone Yasir Ledesma MD Primary Care Provider [phone] Tyrel King MD Unavailable Reason for Visit * Reason Onset Date Comments Med Refill 03/02/2023 Encounter Details Date Type Department Care Team (Late st Contact Info) Description 03/02/2023 Refill [facility] Medical Pavilion Pain Medicine [address] [facility] [place] [address] Nohelia Reece, AIRCRAFT POWER PLANT ASSEMBLER [address] [place] [address] Complex regional pain syndrome type [...] often do you attend chur ch or jewish services? More than 4 times per year 08/13/2022 Do you belong to any clubs o r organizations such as taoism groups, unions, fraternal or athletic groups, or [...] Recorded Patient Health Questionnaire-2 Score 0 01/08/2023 [facility] of Occupat ionnm Health - Occupational Stress Questionnaire Answer Date [...] place to sleep or slept in a group home (including now)? No 08/13/2022 Sex and Gender [...] Info) Description 04/20/2025 8:30 AM EDT [facility] [address] [place] [address] [place] [address] Nohelia Reece, AIRCRAFT POWER PLANT ASSEMBLER [address] [place] [address] documented as of this encounter Visit Diagnoses Diagnosis Complex regional pain syndrome type 1 of left lower extremity documented in this encounter Care Teams Metal Fitters And Machinists Relationship Specialty Start Date End Date Yasir Ledesma MD [address] [facility] [address] [address] PCP - General 05/26/22 Tyrel King MD [address] [place], [place] Referring Physician Geriatric Medicine 11/03/22 documented as of this encounter
--- OUTSIDE RECORDS SUMMARY | 2025-03-19 20:24 | XMS_ITS | Referral Summary ---
Author Organization [facility] Address [address] [place] [address] Care Team Providers Care Mold Construction Supervisor Name Role Phone Yasir Ledesma MD Primary Care Provider [phone] Tyrel King MD Unavailable Encounters Date Type Department Care Team Description 02/26/2025 Refill [facility] [address] [place] [address] [place] [phone] Nohelia Reece CNP Chronic, continuous use of opioids; Complex regional pain syndrome type 1 of left lower extremity; Presence of neurostimulator 01/26/2025 8:15 AM EDT Follow-Up [facility] [address] [place] [address] [place] [phone] Nohelia Reece CNP Chronic, continuous use of opioids (Primary Dx); Complex regional pain syndrome type 1 of left lower extremity; Presence of neurostimulator; S/P left knee arthroscopy; Neuralgia and neuritis 01/02/2025 Orders Only [facility] [address] [place] [address] [place] [phone] Alaina King CNP 01/01/2025 Refill [facility] [address] [place] [address] [place] [phone] Nohelia Reece CNP Complex regional pain syndrome type 1 of left lower extremity; Other chronic postprocedural pain 12/25/2024 7:36 AM EDT - 12/25/2024 11:59 PM EDT Hospital Encounter [facility] [address] [place] [address] [place] [address] Instability of internal left knee prosthesis, initial encounter Discharge Disposition: Home or Self Care () 12/25/2024 8:15 AM EDT [facility] [address] [place] [address] [place] [phone] Ron Burkett MD Instability of internal left knee prosthesis, initial encounter (Primary Dx); Loosening of prosthesis of left total knee replacement, initial encounter; Peripheral neuropathy due to metabolic disorder; History of revision of total replacement of left knee joint from Last 3 Months Allergies Active Allergy Reactions Criticality Noted Date Comments Prochlorperazine Hallucinations Low 02/11/2023 Meperidine Rash Low 08/01/2013 Other reaction(s): Unknown Ketorolac Shortness of breath,Rash High 11/22/2021 Medications Medication Sig Dispensed Refills Start Date End Date Status cyanocobalamin, vitamin B-12, 1,000 mcg/mL kit Inject as directed every 30 (thirty) days. Active pantoprazole (ProtoNix) 40 mg EC tablet Take 40 mg by mouth in the morning and at bedtime. 5 Active diclofenac (Voltaren) 1 % topical gel Apply 1 application. topically if needed in the morning, at noon, in the evening, and at bedtime. TO LEFT KNEE 9 Active calcium carbonate 600 mg calcium (1,500 mg) tablet Take 300 mg by mouth in the morning. 8 Active ferrous sulfate 325 (65 Fe) MG tablet every 12 (twelve) hours. 8 Active multivitamin (Theragran-M) 9 mg iron-400 mcg tablet Take 1 tablet by mouth in the morning. Active ondansetron ODT (Zofran-ODT) 4 mg disintegrating tablet Take 4 mg by mouth every 8 (eight) hours if needed. 7 Active tiZANidine (Zanaflex) 4 mg tablet if needed. 2 Active acetaminophen (Tylenol) 500 mg tablet 1,000 mg every 4 (four) hours if needed. Active sucralfate (Carafate) 1 gram tablet Take 1 g by mouth if needed. Active promethazine (Phenergan) 25 mg tablet Take 25 mg by mouth every 6 (six) hours if needed for nausea or vomiting. Active amitriptyline (Elavil) 100 mg tablet 100 mg. 4 Active ibuprofen 400 mg tablet Take 400 mg by mouth. 4 Active pregabalin (Lyrica) 50 mg capsuleIndications:C omplex regional pain syndrome type 1 of left lower extremity,Other chronic postprocedural pain Take 2 capsules (100 mg) by mouth two times daily. Do not start before January 07, 2025. 120 capsule 1 5 Active CeleXA 10 mg tablet 1 (one) time each day at the same time. 5 Active fluconazole (Diflucan) 100 mg tablet 4 Active hyoscyamine (Anaspaz,Levsin) 0.125 mg tablet 1-2 tabs SL SL every 4 hrs PRN abd pain 4 Active lisinopril 10 mg tablet 1 (one) time each day at the same time. 5 Active semaglutide (Ozempic) 0.25 mg or 0.5 mg (2 mg/3 mL) pen injector 0.25 mg Subcutaneous weekly for 28 days 5 Active semaglutide, weight loss, (Wegovy) 0.25 mg/0.5 mL pen injector 0.25 mg Subcutaneous weely for 30 days 5 Active triamcinolone (Kenalog) 0.1 % cream 5 Active HYDROcodone-acetamin ophen (Kelly) 7.5-325 mg tabletIndications:Ch ronic, continuous use of opioids,Complex regional pain syndrome type 1 of left lower extremity,Presence of neurostimulator Take 1 tablet by mouth every 8 (eight) hours if needed for severe pain (8-10 pain score). Do not start before March 06, 2025. 90 tablet 5 04/05/20 25 Active HYDROcodone-acetamin ophen (Kelly) 7.5-325 mg tabletIndications:Ch ronic, continuous use of opioids,Complex regional pain syndrome type 1 of left lower extremity,Presence of neurostimulator Take 1 tablet by mouth every 8 (eight) hours if needed for severe pain (8-10 pain score). Do not start before February 05, 2025. 90 tablet 5 02/27/20 Discontinu ed(Reorder ) Active Problems Problem Noted Date Diagnosed Date NELI (acute kidney injury) 01/11/2025 Neuralgia and neuritis 10/19/2024 Urinary tract infection 09/06/2024 Chronic, continuous use of opioids 07/19/2024 GERD (gastroesophageal reflux disease) Iron deficiency anemia following bariatric surge ry 06/02/2024 Vertebral artery occlusion, unspecified laterali ty 06/02/2024 Acute constipation 06/01/2024 Nausea and vomiting 10/15/2023 Ileus 10/15/2023 Vaginal dryness 07/15/2023 07/15/2023 Presence of neurostimulator 05/04/2023 Complex regional pain syndro me type 1 of left lower extremity 04/07/2023 History of total knee arthroplasty, left 023 Anxiety 07/12/2022 Artificial knee joint present 07/12/2022 Chronic pain 07/12/2022 Follow-up examination follow ing treatment with high-risk medication 07/12/2022 Internal derangement of left knee 07/12/2022 Left flank pain 07/12/2022 Osteoarthritis of knee 07/12/2022 Pain in left arm 07/12/2022 Right medial knee pain 07/12/2022 Pain of left calf 07/12/2022 Pes anserinus bursitis of left knee 07/12/2022 Radial styloid tenosynovitis 07/12/2022 S/P left knee arthroscopy 07/12/2022 Inverted nipple 01/08/2021 Nipple discharge 01/08/2021 Other specified postprocedural states 01/08/2021 Overview (07/12/2022): Added automatically from request for surgery [id number] Pain of right breast 01/08/2021 Overview (07/12/2022): Added automatically from request for surgery [id number] Abdominal pain 09/06/2019 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 Pain is more right lower back and always associated with her cystitis symptoms. She has had times where she is not presented to the ER in her symptoms resolved on their own after a few days. Symptoms seem to be worse after consumption citrus products and definitely markedly worse with stress. I explained to her and her family member that she may have interstitial cystitis. 03/28 Some improvement with Prelief. Plan to add oxybutynin for overactive bladder symptoms Resolved Problems Problem Noted Date Diagnosed Date Resolved Date Depressive disorder 07/12/2022 01/26/20 25 Morbid obesity 07/12/2022 01/25/2025 Acute lower urinary tract infection 09/16/2018 01/25/2025 Social History Tobacco Use Types Packs/Day Years Used Date Smoking Tobacco: Former Cigarettes Q uit: 12/18/1997 Passive Smoke Exposure: Current Smokeless Tobacco: Never Tobacco Cessation:Counseling Given: Not Answered Alcohol Use Standard Drinks/Week Comments Never 0 (1 standard drink = 0.6 oz pur e alcohol) [facility] Utilities Answer Date Recorded In the past 12 months has e [employer] gas, oil, or water [employer] threatened to shut off services in your home? No 12/25/2024 Humiliation, Afraid, Rape, and Kick questionnair e Answer Date Recorded Within the last year, have y ou been afraid of your partner or ex-partner? No 10/19/2024 Emotionally Abused Not on file 10/19/2024 Physically Abused Not on file 10/19/2024 Sexually Abused Not on file 10/19/2024 Social Connection and Isolat ion Panel [NHANES] Answer Date Recorded In a typical week, how many times do you talk on the phone with family, friends, or neighbors? More than three times a week 08/13/2022 How often do you get togethe r with friends or relatives? Once a week 08/13/2022 How often do you attend chur or rastafari services? More than 4 times per year 08/13/2022 Do you belong to any clubs o r organizations such as caodaism groups, unions, fraternal or athletic groups, or [...] like food, housing, medical care, and heating? Not hard at all 07/19/2024 PHQ-2 Answer Date Recorded Patient Health Questionnaire-2 Score 0 12/25/2024 [facility] - Occupational Stress Questionnaire Answer Date [...] medical appointments or from getting medications? No 07/19/2024 Lack of Transportation (Non-Medical) Not on file 07/19/2024 Housing Stability Vital Sign Answer Jesse e Recorded Unable to Pay for Housing in the Last Year Not o n file 07/19/2024 Number of Places Lived in the Last Year Not on f ile 07/19/2024 In the last 12 months, was t here a time when you did not have a steady place to sleep or slept in a long-term (including now)? No 07/19/2024 Hunger Vital Sign Answer Date Recorded Within the past 12 months, y ou worried that your food would run out before you got the money to buy more. Never true 07/19/20 24 Ran Out of Food in the Last Year Not on file 07/19/2024 Sex and Gender Information Value Date Recorded Sex Assigned at Female 07/19/2024 8:01 AM EDT Gender Identity Female 07/19/2024 8:01 AM EDT Sexual Orientation Don't know 07/19/2024 8: 01 AM EDT Last Filed Vital Signs Vital Sign Reading Time Taken Comments Blood Pressure 132/95 01/26/2025 8:03 AM EDT Pulse 85 01/26/2025 8:03 AM EDT Temperature 36.2 C (97.2 F) 04/28/2023 11:20 AM EDT Simultaneous filing. User may not have seen previous data. Respiratory Rate 20 12/05/2024 11:3 0 AM EST Oxygen Saturation 99% 01/26/2025 8:0 3 AM EDT Inhaled Oxygen Concentration - - Weight 72.6 kg (160 lb) 01/26/2025 8:03 AM EDT Height 167.6 cm (5' 6 ) 12/25/2024 8:00 AM EDT Body Mass Index 25.82 12/25/2024 8:00 AM EDT Plan of Treatment Upcoming Encounters Date Type Department Care Team (Late st Contact Info) Description 04/20/2025 8:30 AM EDT Follow-Up [facility] [address] [place] [address] [place] [phone] Nohelia Reece, BURNING PLANT OPERATOR [address] [place] [address] Medical Devices Implanted Type Area Door Hanger Device Identifier Shelf Expiration Date Model / Serial / Lot Trial Lead Kit-02/11/2023 Implanted:02/11 by Arjun Miner MD (Quantity not on file) Left: Back [id number] 07/26/2024 / [id number] / Slim Tip Drg Lead-02/11/2023 Implanted:02/11 by Arjun Miner MD (Quantity not on file) Left: Back [id number] 05/25/2024 / [id number] / Slim Tip Drg-02/11/2023 Implanted:02/11 by Arjun Miner MD (Quantity not on file) Back [id number] 05/25/2024 / [id number] / Jackson Drg Ext Pulse Generator 2 Port Header-02/11/2023 Implanted:02/11 by Arjun Miner MD (Quantity not on file) Left: Back [id number] 04/07/2024 / [id number] / Slimtip Drg Implanted:Qty: 1 on 04/28/2023 by Arjun Miner MD at [facility] N/A: Back Anteryon [id number] 10/19/2024 [id number] A / [id number] / Proclaim Drg Implanted:Qty: 1 on 04/28/2023 by Arjun Miner MD at [facility] N/A: Back Anteryon [id number] 11/25/2024 [id number] / [id number] / Description:Part of Build Slimtip Drg Implanted:Qty: 1 on 04/28/2023 by Arjun Miner MD at [facility] N/A: Back Anteryon [id number] 02/14/2025 [id number] A / [id number] / Description:Part of Build Explanted Type Area Door Hanger Device Identifier Shelf Expiration Date Model / Serial / Lot Slimtip Drg Explanted:Qty: 1 on 04/28/2023 by Arjun Miner MD at [facility] N/A: Back Anteryon [id number] 10/19/2024 [id number] A / [id number] / Description:WAS IMPLANTED AN D EXPLANTED DURING CASE Procedures Procedure Name Priority Date/Time Associated Diagnosis Comments XR KNEE 3 VIEWS LEFT Routine 12/25/2024 7:53 AM EDT Instability of internal left knee prosthesis, initial encounter from Last 3 Months Results * XR knee 3 views left (12/25/2024 7:53 AM EDT) Anatomical Region Laterality Modality Lower Extremities, Knee Left Computed Radiography 12/25/2024 9:30 AM EDT Impressions 12/25/2024 9:32 AM EDT Status post total knee arthroplasty with no definite change radiographically. Electronically signed: Chinedu Chandra. Narrative 12/25/2024 9:32 AM EDT XR KNEE 3 VIEWS LEFT 12/25/2024 7:47 AM CLINICAL INDICATIONS: Follow-up knee replacement. COMPARISON: 06/01/2024 FINDINGS: 3 views of the knee were obtained. The total knee arthroplasty has stable appearance. There is no ostial lysis or acute change at the hardware and cement interfaces. No acute osseous consultation is evident. Metallic debris is present within the surrounding soft tissues. Small joint effusion is likely present. Procedure Note Chinedu Chandra MD - 12/25/2024 XR KNEE 3 VIEWS LEFT 12/25/2024 7:47 AM CLINICAL INDICATIONS: Follow-up knee replacement. COMPARISON: 06/01/2024 FINDINGS: 3 views of the knee were obtained. The total knee arthroplasty hasstable appearance. There is no ostial lysis or acute change at the hardware andcement interfaces. No acute osseous consultation is evident. Metallic debris ispresent within the surrounding soft tissues. Small joint effusion is likelypresent. IMPRESSION: Status post total knee arthroplasty with no definite changeradiographically. Electronically signed: Chinedu Chandra. Ron Burkett MD IMG XR PROCEDURES from Last 3 Months Care Teams Mold Construction Supervisor Relationship Specialty Start Date End Date Yasir Ledesma MD [address] [facility] [address] [address] PCP - General 05/26/22 Tyrel King MD [address] [place] Referring Physician Geriatric Medicine 11/03/22
--- OUTSIDE RECORDS SUMMARY | 2025-03-19 20:24 | XMS_ITS | Encounter Summary ---
Author Organization [facility] Address [address] [place] [address] Care Team Providers Care Feather Stitcher Name Role Phone Yasir Ledesma MD Primary Care Provider [phone] Tyrel King MD Unavailable Reason for Visit * Reason Onset Date Comments Med Refill 09/11/2024 Encounter Details Date Type Department Care Team (Late st Contact Info) Description 09/11/2024 Refill [facility] [address] [place] [address] Nohelia Reece, EDGING MACHINE FEEDER [address] [place] [address] Complex regional pain syndrome type [...] afraid of your partner or ex-partner? No 07/24/2024 Emotionally Abused Not on file 07/24/2024 Physically Abused Not on file 07/24/2024 Sexually Abused Not on file 07/24/2024 Social Connection and Isolat ion Panel [NHANES] Answer Date Recorded In a typical week, how many times do you talk on the phone with family, friends, or neighbors? More than three times a week 08/13/2022 How often do you get togethe r with friends or relatives? Once a week 08/13/2022 How often do you attend chur ch or judaism services? More than 4 times per year 08/13/2022 Do you belong to any clubs o r organizations such as quaker groups, unions, fraternal or athletic groups, or [...] Date Recorded Patient Health Questionnaire-2 Score 0 07/24/2024 [employer] [facility] - Occupational Stress Questionnaire Answer Date Recorded [...] place to sleep or slept in a correction (including now)? No 07/19/2024 Hunger Vital Sign [...] Info) Description 04/20/2025 8:30 AM EDT [facility] [address] [place] [address] [place] [phone] Nohelia Reece, EDGING MACHINE FEEDER [address] [facility] [place] [phone] documented as of this encounter Visit Diagnoses Diagnosis Complex regional pain syndrome type 1 of left lower extremity Other chronic postprocedural pain documented in this encounter Care Teams Feather Stitcher Relationship Specialty Start Date End Date Yasir Ledesma MD [address] [place] [address] PCP - General 05/26/22 Tyrel King MD [address] [place] Referring Physician Geriatric Medicine 11/03/22 documented as of this encounter
--- OUTSIDE RECORDS SUMMARY | 2025-03-19 20:24 | XMS_ITS | Clinical Summary ---
Author Organization [facility] Address [address] [place] [address] Care Team Providers Care Mannequin Mounter Name Role Phone Yasir Ledesma MD Primary Care Provider Tyrel King MD Unavailable Allergies Active Allergy Reactions Criticality Noted Date [...] 0.1 % cream 5 Active HYDROcodone-acetamin ophen ([place]) 7.5-325 mg tabletIndications:Ch ronic, continuous use of opioids,Complex regional pain syndrome type 1 of left lower extremity,Presence of neurostimulator Take 1 tablet by mouth every 8 (eight) hours if needed for severe pain (8-10 pain score). Do not start before March 06, 2025. 90 tablet 5 04/05/20 Active HYDROcodone-acetamin ophen ([place]) 7.5-325 mg tabletIndications:Ch ronic, continuous use of [...] (07/12/2022): Added automatically from request for surgery [id number] Pain of right breast 01/08/2021 Overview (07/12/2022): Added automatically from request for surgery [id number] Abdominal pain 09/06/2019 Platelet function defect 07/12/2018 [...] Acute lower urinary tract infection 09/16/2018 01/25/2025 Encounters Date Type Department Care Team Description 02/26/2025 Refill [facility] [address] [place] [address] [place] [address] Nohelia Reece CNP Chronic, continuous use of opioids; Complex regional pain syndrome type 1 of left lower extremity; Presence of neurostimulator 01/26/2025 8:15 AM EDT Follow-Up [facility] [address] [place] [address] [place] [address] Nohelia Reece CNP Chronic, continuous use of opioids (Primary Dx); Complex regional pain syndrome type 1 of left lower extremity; Presence of neurostimulator; S/P left knee arthroscopy; Neuralgia and neuritis 01/02/2025 Orders Only [facility] Medicine [address] [place] [address] [place] [address] Alaina King CNP 01/01/2025 Refill [facility] Medicine [address] [place] [address] [place] [address] Nohelia Reece CNP Complex regional pain syndrome type 1 of left lower extremity; Other chronic postprocedural pain 12/25/2024 8:15 AM EDT Follow-Up [facility]opa[facility] [address] [place] [address] [place] [phone] Ron Burkett MD Instability of internal left knee prosthesis, initial encounter (Primary Dx); Loosening of prosthesis of left total knee replacement, initial encounter; Peripheral neuropathy due to metabolic disorder; History of revision of total replacement of left knee joint 12/25/2024 7:36 AM EDT - 12/25/2024 11:59 PM EDT Hospital Encounter [facility] [address] [place] [address] [place] [address] Instability of internal left knee prosthesis, initial encounter Discharge Disposition: Home or Self Care (01) from Last 3 Months Family History Medical History Relation Name Comments Cancer Father Tye Main Kidney cancer Maternal Grandmother Brain cancer Mother Prostate cancer Paternal Grandfather Breast cancer Sister 1 Cancer Sister 2 January Relation Name Status Comments Father Tye Main Maternal Grandmother Mother Paternal Grandfather Sister 1 Sister 2 Januarytman Social History Tobacco Use Types Packs/Day Years Used Date Smoking Tobacco: Former Cigarettes Q uit: 12/18/1997 Passive Smoke Exposure: Current Smokeless Tobacco: Never Tobacco Cessation:Counseling Given: Not Answered Alcohol Use Standard Drinks/Week Comments Never 0 (1 standard drink = 0.6 oz pur e alcohol) [facility] Utilities Answer Date Recorded In the past 12 months has [employer], gas, oil, or water [employer] threatened to shut off services in your [...] How often do you attend chur or judaism services? More than 4 times per year 08/13/2022 Do you belong to any clubs o r organizations such as amish groups, unions, fraternal or athletic groups, or [...] Recorded Patient Health Questionnaire-2 Score 0 12/25/2024 [facility] of Occupat ional Health - Occupational Stress [...] place to sleep or slept in a skilled nursing (including now)? No 07/19/2024 Hunger Vital Sign [...] Info) Description 04/20/2025 8:30 AM EDT Follow-Up [facility] [address] [place] [address] Noheila Reece, KNIT TUBING DYER [address] [place] [address] Health Maintenance Due Date Last Done Comments Varicella Vaccines (1 of 2 - 13+ 2-dose series) 1994 Hepatitis B Vaccines (1 of 3 - 19+ 3-dose series) 2000 Pap Smear 2002 Cervical Cancer Screening 12/31/2011 HPV/Cotest 12/31/2011 Adult Tetanus 07/10/2021 07/10/2011 Mammogram 2021 COVID-19 Vaccine ( season) 2024 07/29/2022, 10/08/2021, 01/30/2021, Additional history exists Influenza Vaccine (Season Ended) 2025 07/29/2022, 07/11/2020, 07/03/2020, Additional history exists Depression Screening 12/25/2025 12/25/2024 Zoster Vaccines (1 of 2) 12/31/2031 Pneumococcal Vaccine: Pediatrics (0 to 5 Years) and At-Risk Patients (6 to 64 Years) Aged Out 01/01/2016 No longer eligible based on patient's age to complete this topic HIB Vaccines Aged Out No longer eligi ble based on patient's age to complete this topic HPV Vaccines Aged Out No longer eligi ble based on patient's age to complete this topic IPV Vaccines Aged Out No longer eligi ble based on patient's age to complete this topic Meningococcal B Vaccine Aged Out No l onger eligible based on patient's age to complete this topic Meningococcal Vaccine Aged Out No lissy amy eligible based on patient's age to complete this topic Rotavirus Vaccines Aged Out No longer eligible based on patient's age to complete this topic Medical Devices Implanted Type Area Healthcare Administrative Assistant Device Identifier Shelf Expiration Date Model / Serial / Lot Trial Lead Kit-02/11/2023 Implanted:02/11 by Arjun Miner MD (Quantity not on file) Left: Back [id number] 07/26/2024 / [id number] / Slim Tip Drg Lead-02/11/2023 Implanted:02/11 by Arjun Miner MD (Quantity not on file) Left: Back [id number] 05/25/2024 / [id number] / Slim Tip Drg-02/11/2023 Implanted:02/11 by Arjun Miner MD (Quantity not on file) Back [id number] 05/25/2024 / [id number] / Jackson Drg Ext Pulse Generator 2 Port Header-02/11/2023 Implanted:02/11 by Arjun Miner MD (Quantity not on file) Left: Back [id number] 04/07/2024 / [id number] / Slimtip Drg Implanted:Qty: 1 on 04/28/2023 by Arjun Miner MD at [facility] N/A: Back [employer] [id number] 10/19/2024 [id number] / [id number] / Proclaim Drg Implanted:Qty: 1 on 04/28/2023 by Arjun Miner MD at [facility] N/A: Back [employer] [id number] 11/25/2024 [id number] / [id number] / Description:Part of Build Slimtip Drg Implanted:Qty: 1 on 04/28/2023 by Arjun Miner MD at [facility] N/A: Back [employer] [id number] 02/14/2025 [id number] A / [id number] / Description:Part of Build Explanted Type Area Healthcare Administrative Assistant Device Identifier Shelf Expiration Date Model / Serial / Lot Slimtip Drg Explanted:Qty: 1 on 04/28/2023 by Arjun Miner MD at [facility] N/A: Back [employer] [id number] 10/19/2024 [id number] A / [id number] / Description:WAS IMPLANTED AN D EXPLANTED DURING [...] PROCEDURES from Last 3 Months Care Teams Mannequin Mounter Relationship Specialty Start Date End Date Yasir Ledesma MD [address] [facility] [address] [address] PCP - General 05/26/22 Tyrel King MD [address] [place], [place] Referring Physician Geriatric Medicine 11/03/22
--- OUTSIDE RECORDS SUMMARY | 2025-03-19 20:24 | XMS_ITS | Clinical Summary ---
Author Organization [facility] Address [address] [place] [address] Care Team Providers Care [employer] Employee Name Role Phone Unavailable Primary Care Provider Unavailabl e Allergies Active Allergy Reactions Criticality Noted Date Comments Desonide 01/08/2021 Ketorolac Rash,Shortness of breath High 05/29/2015 Other Reaction(s): Unknown Ketorolac Tromethamine Rash Low 08/22/2015 Other Reaction(s): Other (See Comments) Meperidine Rash Low 08/01/2013 Other Reaction(s): Other (See Comments) Other reaction(s): Unknown Meperidine Hcl Rash Low 03/19/2025 Other Reaction(s): Unknown Prochlorperazine Hallucinations Low 02/11/2023 Medications No known medications Encounters Date Type Department Care Team Description 03/19/2025 4:00 PM EDT Office Visit [facility] [address] [place] [phone] Eduardo Freedman DO Well woman exam with routine gynecological exam; Breast cancer screening by mammogram 03/19/2025 Bamboo flowsheet [facility] [address] [place] [address] Eduardo Freedman DO from Last 3 Months Social History Tobacco Use Types Packs/Day Years [...] 12.8 oz) 03/19/2025 4:20 PM EDT Height 170.2 cm (5' 7 ) 07/02/2021 12:0 0 PM EDT Body Mass Index 26.75 07/02/2021 12:00 PM EDT Plan of Treatment Upcoming Encounters Date Type Department Care Team (Late st Contact Info) Description 03/21/2026 9:00 AM EDT Office Visit [facility] [address] [place] [place] [address] Eduardo Freedman, DO [address] [facility] [address] [place] [address] Health Maintenance Due Date Last Done Comments Pap Smear 2002 Cervical Cancer Screening 12/31/2011 HPV/Cotest 12/31/2011 Mammogram 2021 Influenza Vaccine (Season Ended) 2025 07/29/2022, 07/11/2020, 07/03/2020, Additional history exists Insurance [employer]
--- OUTSIDE RECORDS SUMMARY | 2025-03-19 20:24 | XMS_ITS | Encounter Summary ---
Author Organization [facility] Address [address] [place] [address] Care Team Providers Care Surgical Technologist Name Role Phone Yasir Ledesma MD Primary Care Provider [phone] Tyrel King MD Unavailable Reason for Visit * Reason Onset Date Comments Med Refill 12/13/2022 Encounter Details Date Type Department Care Team (Late st Contact Info) Description 12/13/2022 Refill [facility] [address] [place] [address] Nohelia Reece, COOK HELPER PRESERVES [address] [place] [address] Chronic pain syndrome Social History [...] often do you attend chur ch or jain services? More than 4 times per year [...] Recorded Patient Health Questionnaire-2 Score 0 11/24/2022 [facility] of Occupat ionva Health - Occupational Stress Questionnaire Answer Date [...] place to sleep or slept in a intermediate (including now)? No 08/13/2022 Sex and Gender [...] Info) Description 04/20/2025 8:30 AM EDT Follow-Up [facility] [address] [place] [address] [place] [address] Nohelia Reece, COOK HELPER PRESERVES [address] [place] [address] documented as of this encounter Visit Diagnoses Diagnosis Chronic pain syndrome documented in this encounter Care Teams Surgical Technologist Relationship Specialty Start Date End Date Yasir Ledesma MD [address] [facility] [address] [address] PCP - General 05/26/22 Tyrel King MD [address] [place], [place] Referring Physician Geriatric Medicine 11/03/22 documented as of this encounter
--- OUTSIDE RECORDS SUMMARY | 2025-03-19 20:24 | XMS_ITS | Encounter Summary ---
Author Organization [facility] Address [address] [place] [address] Care Team Providers Care Medical Record Transcriber Name Role Phone Yasir Ledesma MD Primary Care Provider [phone] Tyrel King MD Unavailable Reason for Visit * Reason Onset Date Comments Med Refill 04/15/2023 Encounter Details Date Type Department Care Team (Late st Contact Info) Description 04/15/2023 Refill [facility] [address] [place] [address] Nohelia Reece, SAFE AND VAULT SERVICE MECHANIC [address] [place] [address] Complex regional pain syndrome type [...] often do you attend chur ch or jew services? More than 4 times per year 08/13/2022 Do you belong to any clubs o r organizations such as mandaen groups, unions, fraternal or athletic groups, or [...] Date Recorded Patient Health Questionnaire-2 Score 0 03/17/2023 [facility] of Occupat ionoh Health - Occupational Stress Questionnaire Answer Date [...] suspected to have Coronavirus/COVID-19? No / Unsure 04/15/2023 11:56 AM EDT documented as of this encounter Plan of Treatment Upcoming Encounters Date Type Department Care Team (Late st Contact Info) Description 04/20/2025 8:30 AM EDT [facility] [address] [place] [address] [place] [address] Nohelia Reece, SAFE AND VAULT SERVICE MECHANIC [address] [place] [address] documented as of this encounter Visit Diagnoses Diagnosis Complex regional pain syndrome type 1 of left lower extremity documented in this encounter Care Teams Medical Record Transcriber Relationship Specialty Start Date End Date Yasir Ledesma MD [address] [facility] [address] [address] PCP - General 05/26/22 Tyrel King MD [address] [place], [place] Referring Physician Geriatric Medicine 11/03/22 documented as of this encounter
--- OUTSIDE RECORDS SUMMARY | 2025-03-19 20:24 | XMS_ITS | Encounter Summary ---
Author Organization [facility] Address [address] [place] [address] Care Team Providers Care Alarm Mechanism Adjuster Name Role Phone Unavailable Primary Care Provider Unavailabl e Encounter Details Date Type Department Care Team (Late st Contact Info) Description 03/19/2025 Bamboo flowsheet [facility] OB [address] [place] [address] Eduardo Freedman, DO [address], [place] [address] Social History Tobacco Use Types Packs/Day Years [...] 03/21/2026 9:00 AM EDT Office Visit [facility] [address] [place] [address] Eduardo Freedman, DO [address], [facility] documented as of this encounter Visit Diagnoses Not on filedocumented in this encounter
--- OUTSIDE RECORDS SUMMARY | 2025-03-19 20:24 | XMS_ITS | Encounter Summary ---
Author Organization [facility] Address [address] [place] [address] Care Team Providers Care Hand Iii Cutter Name Role Phone Yasir Ledesma MD Primary Care Provider [phone] Tyrel King MD Unavailable Encounter Details Date Type Department Care Team (Late st Contact Info) Description 12/15/2022 Nurse Triage [facility] Pain Medicine [address] [place] [phone] Arjun Miner MD [address] [facility] [place], [place] [id number] Social History Tobacco Use Types Packs/Day Years [...] How often do you attend chur or church services? More than 4 times per year 08/13/2022 Do you belong to any clubs o r organizations such as synagogue groups, unions, fraternal or athletic groups, or [...] Recorded Patient Health Questionnaire-2 Score 0 11/24/2022 [facility] of Occupat ional Health - Occupational Stress [...] place to sleep or slept in a long term (including now)? No 08/13/2022 Sex and Gender [...] AM EST documented as of this encounter Miscellaneous Notes * Telephone Encounter - Osiris Ramos RN - 12/15/2022 2:32 PM EST ----- Message from Estefani Hayden MA sent at 12/15/2022 1:01 PM EST ----- Regarding: FW: Concerns ----- Message ----- From: Elvi Moore Sent: 12/15/2022 7:44 AM EST To: [facility] Pain Medicine Clinical Support Pool Subject: Concerns Hi I???m messaging you because I have an appointment on the and I don???t know if I should tryto get one earlier I???m still having some [...] in earlier or wait til the thank youfor your time I am attaching a pic of my knee honestly I???m just miserable documented in this encounter Plan of Treatment Upcoming Encounters Date Type Department Care Team (Late st Contact Info) Description 04/20/2025 8:30 AM EDT Follow-Up [facility] Pain Medicine [address] [place] [address] [place] [address] Nohelia Reece, TITLE INVESTIGATOR [address] [place] [address] documented as of this encounter Visit Diagnoses Not on filedocumented in this encounter Care Teams Hand Iii Cutter Relationship Specialty Start Date End Date Yasir Ledesma MD [address] [facility] [address] [address] PCP - General 05/26/22 Tyrel King MD [address] [place] Referring Physician Geriatric Medicine 11/03/22 documented as of this encounter
--- OUTSIDE RECORDS SUMMARY | 2025-03-19 20:24 | XMS_ITS | Clinical Summary ---
Author Organization [facility] Address [address] [place], [place] [address] Care Team Providers Care [employer] Name Role Phone Yasir Ledesma MD Primary Care Provider [phone] Allergies Active Allergy Reactions Criticality Noted Date Comments Ketorolac Rash Low 08/22/2015 Meperidine Rash Low 2014 Medications tiZANidine (ZANAFLEX) 4 mg tablet Take 1 tablet by mouth once daily. 0 2 Active sucralfate (CARAFATE) 100 mg/mL suspension Carafate 100 mg/mL oral suspension 8 Active promethazine (PHENERGAN) 25 mg tablet 0 Active ondansetron orally disintegrating (ZOFRAN ODT) 4 mg disintegrating tablet Take 4 mg by mouth. 7 Active therapeutic multivitamin-drapery examiner als (THERA-M PLUS) 9 mg iron-400 mcg tablet Take 1 tablet by mouth. Active hyoscyamine sublingual (LEVSIN SL) 0.125 mg 0.125 mg. Active HYDROcodone-acetam inophen (NORCO) 5-325 mg per tablet 0 Active ferrous sulfate 325 mg (65 mg iron) tablet 325 mg. 8 Active diclofenac sodium (VOLTAREN) 1 % topical gel diclofenac 1 % topical gel Active cyanocobalamin 1,000 mcg/mL 0 Active calcium carbonate (CALTRATE) 600 mg calcium (1,500 mg) tab 300 mg. 8 Active acyclovir (ZOVIRAX) 5 % ointment acyclovir 5 % topical ointment Active acetaminophen (TYLENOL) 500 mg tablet Take 1,000 mg by mouth. Active pantoprazole DR (PROTONIX) 40 mg tablet Take 40 mg by mouth once daily. Active amitriptyline (ELAVIL) 10 mg tablet Take 1 tablet by mouth daily at bedtime. 30 tablet 2 0 Active Active Problems No known active problems Family History Medical History Relation Comments Thyroid Father Thyroid Paternal Aunt Diabetes Paternal Grandmother Hypertension Paternal Grandmother Thyroid Paternal Grandmother Breast Cancer No Family History Colon Cancer No Family History SCHOOL SPEECH LANGUAGE PATHOLOGIST cancer No Family History Relation Status Comments Father Paternal Aunt Paternal Grandmother Social History Tobacco Use Types Packs/Day Years Used Date Smoking Tobacco: Former Smokeless Tobacco: Never Comments:Quit in Alcohol Use Standard Drinks/Week Comments No 0 (1 standard drink = 0.6 oz pur e alcohol) Area Deprivation Index Answer Date Herve rded National Score (1-100), lower number is lower ri sk Not on file 09/18/2020 State Score (1-10), lower number is lower risk N ot on file 09/18/2020 Data from: https://www.neighborhoodatlas.medicine.[facility].edu/. Last address used for calculation Not on file 09/18/2020 Comments Unknown Sex and Gender Information Value Date Recorded Sex Assigned at Not on file Legal Sex Female 10:18 AM EST Gender Identity Not on file Sexual Orientation Not on file Last Filed Vital Signs Vital Sign Reading Time Taken Comments Blood Pressure 122/68 08/07/2020 2:41 PM EDT Pulse 74 08/07/2020 2:41 PM EDT Temperature 36.5 C (97.7 F) 08/23/2012 1:06 PM EST Respiratory Rate - - Oxygen Saturation - - Inhaled Oxygen Concentration - - Weight 64 kg (141 lb) 08/07/2020 2:41 PM EDT Height 167.6 cm (5' 6 ) 08/07/2020 2:41 PM EDT Body Mass Index 22.76 08/07/2020 2:41 PM EDT Plan of Treatment Health Maintenance Due Date Last Done Comments Anxiety Screening 12/31/1999 Depression Screening 12/31/1999 HIV Screening 12/31/1999 Hepatitis C Screening 12/31/1999 Hepatitis B Vaccine (1 of 3 - 19+ 3-dose series) 2000 Cervical Cancer Screening 2002 DTaP,Tdap,Td Vaccine (2 - Td or Tdap) 07/10/2021 07/10/2011 Mammogram Screening 2021 Covid-19 Vaccine (2023-2 5 season) 2024 Influenza Vaccine (Season Ended) 2025 07/03/2020, 07/18/2019, 07/11/2019, Additional history exists Care Teams Cook Railroad Relationship Specialty Start Date End Date Yasir Ledesma MD PCP - General Family Medicine 08/17/12
--- OUTSIDE RECORDS SUMMARY | 2025-03-19 20:24 | XMS_ITS | Encounter Summary ---
Author Organization [facility] Address [address] [place] [address] Care Team Providers Care Box Loader Name Role Phone Yasir Ledesma MD Primary Care Provider [phone] Tyrel King MD Unavailable Reason for Visit * Reason Onset Date Comments Med Refill 04/16/2023 Encounter Details Date Type Department Care Team (Late st Contact Info) Description 04/16/2023 Refill [facility] [address] [place] [address] Nohelia Reece, SOLE RUFFER [address] [place] [address] Complex regional pain syndrome type [...] often do you attend chur ch or buddhism services? More than 4 times per year 08/13/2022 Do you belong to any clubs o r organizations such as jewish groups, unions, fraternal or athletic groups, or [...] Recorded Patient Health Questionnaire-2 Score 0 03/17/2023 [facility] of Occupat ionnc Health - Occupational Stress Questionnaire Answer Date [...] place to sleep or slept in a custodial (including now)? No 08/13/2022 Sex and Gender [...] Info) Description 04/20/2025 8:30 AM EDT [facility] [address] [place] [address] [place] [address] Nohelia Reece, SOLE RUFFER [address] [place] [address] documented as of this encounter Visit Diagnoses Diagnosis Complex regional pain syndrome type 1 of left lower extremity documented in this encounter Care Teams Box Loader Relationship Specialty Start Date End Date Yasir Ledesma MD [address] [facility] [address] [address] PCP - General 05/26/22 Tyrel King MD [address] [place], [place] Referring Physician Geriatric Medicine 11/03/22 documented as of this encounter
--- OUTSIDE RECORDS SUMMARY | 2025-03-19 20:25 | XMS_ITS | Encounter Summary ---
Author Organization [facility] Address [address] [place] [address] Care Team Providers Care Preflight Inspector Name Role Phone Yasir Ledesma MD Primary Care Provider [phone] Tyrel King MD Unavailable Reason for Visit * Reason Onset Date Comments Med Refill 10/19/2023 Encounter Details Date Type Department Care Team (Late st Contact Info) Description 10/19/2023 Refill [facility] [address] [place] [address] Arjun Miner MD [address] [facility], [address] [place], [place] [id number] Complex regional pain syndrome type 1 of [...] afraid of your partner or ex-partner? No 08/19/2023 Within the last year, have y ou been humiliated or emotionally abused in other ways by your partner or ex-partner? No Within the last year, have y ou been kicked, hit, slapped, or otherwise physically hurt by your partner or ex-partner? No 08/19/2023 Within the last year, have y ou been raped or forced to have any kind of sexual activity by your partner or ex-partner? No 08/19/2023 Social Connection and Isolat ion Panel [NHANES] Answer Date Recorded In a typical week, how many times do you talk on the phone with family, friends, or neighbors? More than three times a week 08/13/2022 How often do you get togethe r with friends or relatives? Once a week 08/13/2022 How often do you attend chur or yazidism services? More than 4 times per year 08/13/2022 Do you belong to any clubs o r organizations such as roman catholic groups, unions, fraternal or athletic groups, or [...] Date Recorded Patient Health Questionnaire-2 Score 0 08/19/2023 [facility] of Occupat ional Health - Occupational Stress [...] exercise at this level? 20 min 08/13/2022 [place] Safety & [place] Answer Date Rec orded Within the last year, have y ou been afraid of your partner or ex-partner? No 08/19/2023 Within the last year, have y ou been humiliated or emotionally abused in other ways by your partner or ex-partner? No Within the last year, have y ou been kicked, hit, slapped, or otherwise physically hurt by your partner or ex-partner? No 08/19/2023 Within the last year, have y ou been raped or forced to have any kind of sexual activity by your partner or ex-partner? No 08/19/2023 In the past year have you been physically or sex ually abused? 08/19/2023 Transportation Answer Date Recorded In the past [...] place to sleep or slept in a alf (including now)? No 06/01/2023 Hunger Vital Sign [...] AM EDT documented as of this encounter Miscellaneous Notes * Telephone Encounter - Jess Stewart DO - 10/20/2023 9:53 AM EST Approving, but needs appt for additional refills. documented in this encounter Plan of Treatment Upcoming Encounters Date Type Department Care Team (Late st Contact Info) Description 04/20/2025 8:30 AM EDT Follow-Up [facility] Pain Medicine [address] [place] [address] [place] [address] Nohelia Reece, CONCRETE BUILDING ASSEMBLER [address] [place] [phone] documented as of this encounter Visit Diagnoses Diagnosis Complex regional pain syndrome type 1 of left lower extremity Other chronic postprocedural pain documented in this encounter Care Teams Preflight Inspector Relationship Specialty Start Date End Date Yasir Ledesma MD [address] [facility] [address] [address] PCP - General 05/26/22 Tyrel King MD [address] [place], [place] Referring Physician Geriatric Medicine 11/03/22 documented as of this encounter
--- OUTSIDE RECORDS SUMMARY | 2025-03-19 20:25 | XMS_ITS | Encounter Summary ---
Author Organization [facility] Address [address] [place] [address] Care Team Providers Care Truck Washer Name Role Phone Yasir Ledesma MD Primary Care Provider [phone] Tyrel King MD Unavailable Reason for Visit * Reason Onset Date Comments Med Refill 10/15/2023 Encounter Details Date Type Department Care Team (Late st Contact Info) Description 10/15/2023 Refill [email or web address] [address] [place] [address] Arjun Miner MD [address] [facility], [address] [place], [place] [id number] Complex regional pain syndrome type 1 of [...] How often do you attend chur or evangelical services? More than 4 times per year 08/13/2022 Do you belong to any clubs o r organizations such as lutheran groups, unions, fraternal or athletic groups, or [...] Recorded Patient Health Questionnaire-2 Score 0 08/19/2023 [facility] of Occupat ional Health - Occupational Stress [...] exercise at this level? 20 min 08/13/2022 [place] Safety & Environment Answer Date Rec orded [...] place to sleep or slept in a retirement (including now)? No 06/01/2023 Hunger Vital Sign [...] encounter Miscellaneous Notes * Telephone Encounter - Frida Serrano MA - 10/18/2023 9:21 AM EST Patient is calling for medication refill to be sent to pharmacy. Thank you documented in this encounter Plan of Treatment Upcoming Encounters Date Type Department Care Team (Late st Contact Info) Description 04/20/2025 8:30 AM EDT Follow-Up [facility] [[email or web address]] Medical [facility] [address] [place] [address] [place] [address] Nohelia Reece, PRESS WRITER [address] [place] [phone] documented as of this encounter Visit Diagnoses Diagnosis Complex regional pain syndrome type 1 of left lower extremity Other chronic postprocedural pain documented in this encounter Care Teams Truck Washer Relationship Specialty Start Date End Date Yasir Ledesma MD [address] [facility] [address] [address] PCP - General 05/26/22 Tyrel King MD [address] [place], [place] Referring Physician Geriatric Medicine 11/03/22 documented as of this encounter
--- OUTSIDE RECORDS SUMMARY | 2025-03-19 20:25 | XMS_ITS | Encounter Summary ---
Author Organization [facility] Address [address] [place] [address] Care Team Providers Care Utility Spray Operator Name Role Phone Yasir Ledesma MD Primary Care Provider [phone] Tyrel King MD Unavailable Reason for Visit * Reason Onset Date Comments Med Refill 07/06/2023 Encounter Details Date Type Department Care Team (Late st Contact Info) Description 07/06/2023 Refill [facility] Medical [facility] Pain Medicine [address] [facility] [place] [phone] Jess Stewart MD Complex regional pain syndrome type 1 of [...] afraid of your partner or ex-partner? No 06/01/2023 Within the last year, have y ou been humiliated or emotionally abused in other ways by your partner or ex-partner? No Within the last year, have y ou been kicked, hit, slapped, or otherwise physically hurt by your partner or ex-partner? No 06/01/2023 Within the last year, have y ou been raped or forced to have any kind of sexual activity by your partner or ex-partner? No 06/01/2023 Social Connection and Isolat ion Panel [NHANES] Answer Date Recorded In a typical week, how many times do you talk on the phone with family, friends, or neighbors? More than three times a week 08/13/2022 How often do you get togethe r with friends or relatives? Once a week 08/13/2022 How often do you attend chur or mandaeism services? More than 4 times per year [...] Date Recorded Patient Health Questionnaire-2 Score 0 06/01/2023 [facility] of Occupat ional Health - Occupational [...] place to sleep or slept in a fdc (including now)? No 06/01/2023 Hunger Vital Sign [...] Info) Description 04/20/2025 8:30 AM EDT Follow-Up [facility] Pain Medicine [address] [place] [address] [place] [phone] Nohelia Reece, BALANCING MACHINE SET UP WORKER [address] [place] [phone] documented as of this encounter Visit Diagnoses Diagnosis Complex regional pain syndrome type 1 of left lower extremity documented in this encounter Care Teams Utility Spray Operator Relationship Specialty Start Date End Date Yasir Ledesma MD [address] [address] PCP - General 05/26/22 Tyrel King MD [address] [place] Referring Physician Geriatric Medicine 11/03/22 documented as of this encounter
--- OUTSIDE RECORDS SUMMARY | 2025-03-19 20:25 | XMS_ITS | Encounter Summary ---
Author Organization [facility] Address [address] [place] [address] Care Team Providers Care Fish Hatchery Inspector Name Role Phone Yasir Ledesma MD Primary Care Provider [phone] Tyrel King MD Unavailable Reason for Visit * Reason Onset Date Comments Med Refill 06/08/2023 Encounter Details Date Type Department Care Team (Late st Contact Info) Description 06/08/2023 Refill [facility] Pain [facility] [address] [facility] [place] [phone] Jess Stewart MD Complex regional pain syndrome [...] How often do you attend chur or hindu services? More than 4 times per year 08/13/2022 Do you belong to any clubs o r organizations such as uatsdin groups, unions, fraternal or athletic groups, or [...] Recorded Patient Health Questionnaire-2 Score 0 06/01/2023 [facility] of Occupat ional Health - Occupational Stress [...] slept in a assisted (including now)? No 06/01/2023 Hunger Vital Sign [...] suspected to have Coronavirus/COVID-19? No / Unsure 06/01/2023 9:43 AM EDT documented as of this encounter Miscellaneous Notes * Telephone Encounter - Jess Stewart DO - 06/09/2023 2:37 PM EDT Approving, but needs appt for additional refills. documented in this encounter Plan of Treatment Upcoming Encounters Date Type Department Care Team (Late st Contact Info) Description 04/20/2025 8:30 AM EDT Follow-Up [facility] [address] [place] [address] [place] [address] Nohelia Reece, CAR WASH MANAGER [address] [place] [address] documented as of this encounter Visit Diagnoses Diagnosis Complex regional pain syndrome type 1 of left lower extremity documented in this encounter Care Teams Fish Hatchery Inspector Relationship Specialty Start Date End Date Hoy, Yasir, MD [address] [address] PCP - General 05/26/22 Tyrel King MD [address] [place], [place] Referring Physician Geriatric Medicine 11/03/22 documented as of this encounter
--- OUTSIDE RECORDS SUMMARY | 2025-03-19 20:25 | XMS_ITS | Clinical Summary ---
Author Organization [employer] Address [id number] [address] [place] [address] Care Team Providers Care [employer] Maker Name Role Phone Yasir Ledesma MD Primary Care Provider [phone] Allergies Active Allergy Reactions Criticality Noted Date Comments Prochlorperazine 08/14/2023 Meperidine Rash Low 04/09/2017 Desonide 01/08/2021 Ketorolac Tromethamine Rash Low 04/09/2017 Medications [id number] alcium &mins (THERAGRAN-M) 9 mg iron-400 mcg tablet Take 1 tablet by mouth in the morning. Active CALCIUM CITRATE ORAL Take 1 tablet by mouth daily. Active ferrous sulfate 325 (65 FE) mg tablet Take 1 tablet (325 mg total) by mouth daily with breakfast. Active pantoprazole (PROTONIX) 20 mg EC tablet Take 2 tablets (40 mg total) by mouth in the morning and 2 tablets (40 mg total) before bedtime. Active hyoscyamine (LEVSIN) 0.[address] 1 tablet (125 mcg total) under the tongue. Active acetaminophen (TYLENOL) 500 mg tablet Take 2 tablets (1,000 mg total) by mouth. Active promethazine (PHENERGAN) 25 mg tablet Take 1 tablet (25 mg total) by mouth every 6 (six) hours as needed for nausea or vomiting. Active amitriptyline (ELAVIL) 10 mg tablet Take 10 mg by mouth nightly. Active lidocaine (LIDODERM) 5 % Place 1 patch on the skin daily as needed for pain (pain) for up to 15 doses. Remove & Discard patch within 12 hours or as directed by 15 patch 10/02/20 Active Additional Information Patient not taking.Reported on 01/19/2023 ondansetron ODT (ZOFRAN ODT) 4 mg disintegrating tablet Dissolve 1 tablet (4 mg total) on tongue every 8 (eight) hours as needed for nausea for up to 10 doses. 10 tablet 08/10/20 23 Active HYDROcodone-acetam inophen (NORCO) 5-325 mg per tablet Take 1 tablet by mouth every 6 (six) hours as needed for pain. Max Daily Amount: 4 tablets Active pregabalin (LYRICA) 50 mg capsule Take 1 capsule (50 mg total) by mouth in the morning and 1 capsule (50 mg total) before bedtime. 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 06/15/2018 Easy bruising 06/15/2018 Hematuria 12/29/2017 Overview (03/29/2018): Passed kidney stone 3 mm 2013 Passed [...] to add oxybutynin for overactive bladder symptoms Encounters Date Type Department Care Team Description 01/11/2025 11:44 AM EDT - 01/11/2025 5:12 PM EDT Emergency [facility] - Emergency [address] [place] [address] Harley Blue MD Gill, Kaleem U, MD NELI (acute kidney injury) (Primary Dx) Discharge Disposition: Left Against Medical Advice or Discontinued Care 01/11/2025 Travel from Last 3 Months Family History Medical History Relation Name Comments Platelet Function Defect Daughter Von Willebrand disease Daughter Cancer Father brain Diabetes Father Diabetes type II Father Early Father Hypertension Father Stroke Father Hypertension Mother Menorrhagia Mother Epistaxis Son Relation Name Status Comments Brother Alive Daughter Father Mother Alive Sister Alive Son Social History Tobacco Use Types Packs/Day Years Used Date Smoking Tobacco: Former Cigarettes 1 15 0 10/19/2000 - 10/19/2015 Smokeless Tobacco: Never Tobacco Cessation:Counseling Given: Not Answered Alcohol Use Standard Drinks/Week Comments No 0 (1 standard drink = 0.6 oz pur e alcohol) PHQ-2 Answer Date Recorded Total Score 0 06/15/2018 Childcare Answer Date Recorded Childcare Unknown 03/22/2019 Employment Answer Date Recorded Employment Unknown 03/22/2019 Hunger Screening Answer Date Recorded Within the past 12 months we worried whether our food would run out before we got money to buy more. Never True 01/11/2025 Within the past 12 months th e food we bought just didn't last and we didn't have money to get more. 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 Not on file Not on file Last Filed Vital Signs Vital Sign Reading Time Taken Comments Blood Pressure 90/62 01/11/2025 3:29 PM EDT Pulse 94 01/11/2025 4:45 PM EDT Temperature 36.6 C (97.9 F) 12/08/2024 7:30 PM EST Respiratory Rate 14 01/11/2025 4:45 PM EDT Oxygen Saturation 98% 01/11/2025 4:45 PM EDT Inhaled Oxygen Concentration - - Weight 78 kg (172 lb) 01/11/2025 11:48 AM EDT Height 167.6 cm (5' 6 ) 01/11/2025 11:48 AM EDT Body Mass Index 27.76 01/11/2025 11:48 AM EDT Plan of Treatment Health Maintenance Due Date Last Done Comments Depression Screening 1993 Adult BMI Follow Up Plan 12/31/1999 DTaP,Tdap and Td Vaccines (2 - Td or Tdap) 07/10/2021 07/10/2011 COVID-19 Vaccine (5 2023-2 5 season) 2024 07/29/2022, 10/08/2021, 01/30/2021, Additional history exists Influenza Vaccine 06/11/2025 07/29/2022, , 07/03/2020, Additional history exists Adult BMI Screening 01/11/2026 01/11/2025 Tobacco Screening 01/11/2026 01/11/2025 Medical Devices Not on file Procedures Procedure Name Priority Date/Time Associated Diagnosis Comments PULSE OXIMETRY, SPOT Routine 01/11/2025 2:55 PM EDT POCT NURSING URINE MACROSCOPIC UA Routine 01/11/2025 2:[address] ABDOMEN AND PELVIS WO CONT STAT 01/11/2025 12:37 PM EDT C DIFFICILE BY PCR Routine 01/11/2025 12 :05 PM EDT GI PANEL STOOL PATHOGEN PANEL Routine 01/11/2025 12:05 PM EDT LIPASE Add-On 01/11/2025 11:55 AM EDT APTT STAT 01/11/2025 11:55 AM EDT PROTIME & INR STAT 01/11/2025 11:55 AM EDT COMPREHENSIVE METABOLIC PANEL STAT 01/11/2025 11:55 AM EDT CBC WITH AUTO DIFFERENTIAL STAT 01/11/2025 11:55 AM EDT ECG 12-LEAD STAT 01/11/2025 11:47 AM EDT TYPE AND SCREEN Routine 01/11/2025 11:30 AM EDT REPEATED ABORH Routine 01/11/2025 11:30 AM EDT from Last 3 Months Results * (ABNORMAL) POCT Nursing Urine Macroscopic UA (01/11/2025 2:29 PM EDT) Specific gravity JUNIOR 1.025 1.003 - 1.035 01/11/2025 2:28 PM EDT [facility] Leukocyte esterase JUNIOR Negative Negative^ Negative 01/11/2025 2:28 PM EDT [facility] Nitrite JUNIOR Negative Negative^ Negative 01/11/2025 2:28 PM EDT [facility] Ph 5.5 5.0 - 8.5 01/11/2025 2:28 PM EDT [facility] Protein JUNIOR 100(A) Negative^ Negative mg/dL 01/11/2025 2:28 PM EDT [facility] Urine glucose JUNIOR Negative Negative^ Negative mg/dL 01/11/2025 2:28 PM EDT [facility] Ketones JUNIOR Trace(A) Negative^ Negative mg/dL 01/11/2025 2:28 PM EDT [facility] Urobilinogen JUNIOR 0.2 <1.1 eu/dL 01/11/2025 2:28 PM EDT [facility] Bilirubin JUNIOR MODERATE(A) Negative^ Negative 01/11/2025 2:28 PM EDT [facility] Hemoglobin JUNIOR Negative Negative^ Negative 01/11/2025 2:28 PM EDT [facility] Urine / Unknown 01/11/2025 2 :29 PM EDT 01/11/2025 2:28 PM EDT us Harley Blue MD POINT OF CARE TEST ORDERABLES F inal Result [facility] [address], [place] [address] * CT abdomen and pelvis without contrast (01/11/2025 12:37 PM EDT) Anatomical Region Laterality Modality Body, Abdomen, Body Covera N/A Compu kendall Tomography 01/11/2025 12:3 9 PM EDT Narrative 01/11/2025 12:44 PM EDT History:Bloody stools. History of gastric bypass surgery. [...] Yvette Andrade MD on 01/11/2025 12:44 PM Procedure Note Yvette Andrade MD - 01/11/2025 History:Bloody stools. History of gastric bypass surgery. Poor renalfunction CT abdomen and pelvis without contrast Comparison:08/09/2024 Technique: Axial images to the abdomen and pelvis were obtained withoutcontrast. Subsequently sagittal and coronal images were submitted to PACS.Automated exposure control was used Findings: CT abdomen: There are no calcifications in the kidneys, ureters or urinary bladder. Nosigns of obstruction. No free air or free fluid. No enlarged lymph nodes.No abdominal aortic aneurysm.. No acute process is noted in the unenhancedliver, spleen, gallbladder, adrenal glands or kidneys. Prior cholecystectomy. Suture material compatible with prior bariatric typesurgery is noted CT pelvis: No dilated bowel loops or pericolonic fat stranding. No enlarged pelvicor inguinal lymph nodes. No free fluid. Evaluation of the bowel ishampered without oral contrast. There is no free air. There is no freefluid. Prior hysterectomy. Urinary bladder is unremarkable Lumbar spine is free of any acute process. Impression: * No acute intraperitoneal process is noted.' All CT scans at this facility use dose modulation, iterativereconstruction, and/or weight based dosing when appropriate to reduceradiation dose to as low as reasonably achievable. Finalized by Yvette Andrade MD on 01/11/2025 12:44 PM Harley Blue MD IM CT ORDERABLES Final Result * GI Panel(stool pathogen panel) (01/11/2025 12:05 PM EDT) Specimen Source STOOL 12:15 PM EDT [facility] Campylobacter Not Detected Not Detected^No t Detected 01/11/2025 10:51 PM EDT [facility] Plesiomonas Not Detected Not Detected^No t Detected 01/11/2025 10:51 PM EDT [facility] Salmonella Not Detected Not Detected^No t Detected 01/11/2025 10:51 PM EDT [facility] Vibrio Not Detected Not Detected^No t Detected 01/11/2025 10:51 PM EDT [facility] Vibrio Cholerae Not Detected Not Detected^No t Detected 01/11/2025 10:51 PM EDT [facility] Y Enterocolitica Not Detected Not Detected^No t Detected 01/11/2025 10:51 PM EDT [facility] Aggregative E Coli Not Detected Not Detected^No t Detected 01/11/2025 10:51 PM EDT [facility] Pathogenic E Coli Not Detected Not Detected^No t Detected 01/11/2025 10:51 PM EDT [facility] Toxigenic E Coli Not Detected Not Detected^No t Detected 01/11/2025 10:51 PM EDT [facility] Shiga Toxin E Coli Not Detected Not Detected^No t Detected 01/11/2025 10:51 PM EDT [facility] Shigella-E Coli Not Detected Not Detected^No t Detected 01/11/2025 10:51 PM EDT [facility] Cryptosporidium Not Detected Not Detected^No t Detected 01/11/2025 10:51 PM EDT [facility] Cyclospora Not Detected Not Detected^No t Detected 01/11/2025 10:51 PM EDT [facility] E Histolytica Not Detected Not Detected^No t Detected 01/11/2025 10:51 PM EDT [facility] Giardia Lamblia Not Detected Not Detected^No t Detected 01/11/2025 10:51 PM EDT [facility] Adenovirus Not Detected Not Detected^No t Detected 01/11/2025 10:51 PM EDT [facility] Astrovirus Not Detected Not Detected^No t Detected 01/11/2025 10:51 PM EDT [facility] Norovirus Not Detected Not Detected^No t Detected 01/11/2025 10:51 PM EDT [facility] Rotavirus A Not Detected Not Detected^No t Detected 01/11/2025 10:51 PM EDT [facility] Sapovirus Not Detected Not Detected^No t Detected 01/11/2025 10:51 PM EDT [facility] Feces / Unknown 01/11/2025 1 2:05 PM EDT 01/11/2025 5:38 PM EDT us Rianna Cuellar PINKED EDGE SEWING MACHINE OPERATOR-METHOD CONSULTANT BODY FLUIDS AND STOOLS ORD ERABLES Final Result [address], [place] [address] [facility] [address] [place] [address], [address] [place] [address] * C difficile by PCR (01/11/2025 12:05 PM EDT) Toxigenic c diff Negative Negative^Negat zohaib 01/11/2025 7:30 PM EDT [facility] 027 nap1 Presumptive Negative Presumptive Negative^Presu mptive Negative 01/11/2025 7:30 PM EDT [facility] Stool Feces / Unknown 01/11/2025 1 2:05 PM EDT 01/11/2025 5:38 PM EDT us Rianna Cuellar PINKED EDGE SEWING MACHINE OPERATOR-METHOD CONSULTANT BODY FLUIDS AND STOOLS ORD ERABLES Final Result [facility] [address], [address] [place] [address] * (ABNORMAL) CBC auto differential (01/11/2025 11:55 AM EDT) White Blood Cells 7.8 4.0 - 11.0 X10E9/L 01/11/2025 12:15 PM EDT [facility] RBC count 4.70 3.80 - 5.20 X10E12/L 01/11/2025 12:15 PM [facility] Hemoglobin 11.8 11.7 - 15.5 g/dL 01/11/2025 12:15 PM [facility] Hematocrit 36.9 35 - 47 % 01/11/2025 12:15 PM [facility] MCV 78(L) 80 - 100 fL 01/11/2025 12:15 PM [facility] MCH 25.2(L) 27 - 34 pg 01/11/2025 12:15 PM [facility] MCHC 32.1 32 - 36 g/dL 01/11/2025 12:15 PM [facility] RDW 18.6(H) 11.5 - 15.0 % 01/11/2025 12:15 PM [facility] Platelets 289 150 - 450 X10E9/L 01/11/2025 12:15 PM [facility] MPV 7.9 7 - 12 fL 01/11/2025 12:15 PM [facility] % neutrophils 63.8 % 01/11/2025 12:15 PM [facility] % lymphocytes 22.5 % 01/11/2025 12:15 PM EDT [facility] % monocytes 13.1 % 01/11/2025 12:15 PM EDT [facility] % eosinophils 0.4 % 01/11/2025 12:15 PM EDT [facility] % Basophils 0.2 % 01/11/2025 12:15 PM EDT [facility] Neutrophils Absolute (A) 5.0 1.5 - 6.6 X10E9/L 01/11/2025 12:15 PM EDT [facility] Lymphocytes Absolute 1.8 1.0 - 3.5 X10E9/L 01/11/2025 12:15 PM EDT [facility] Monocytes Absolute 1.0(H) 0 - 0.9 X10E9/L 01/11/2025 12:15 PM EDT [facility] Eosinophils Absolute 0.0 0.0 - 0.4 X10E9/L 01/11/2025 12:15 PM EDT [facility] Basophils Absolute 0.0 0.0 - 0.2 X10E9/L 01/11/2025 12:15 PM EDT [facility] Blood Blood / Unknown 01/11/2025 1 1:55 AM EDT 01/11/2025 12:00 PM EDT us Rianna Cuellar P[employer]ED EDGE SEWING MACHINE OPERATOR-METHOD CONSULTANT LAB BLOOD ORDERABLES Final Result [address] [address] * APTT (01/11/2025 11:55 AM EDT) aPTT 32 26 - 37 sec 01/11/2025 12:19 PM EDT [facility] Comment:NEW REFERENCE RANGE Blood (PLASMA) 01/11/2025 11 :55 AM EDT 01/11/2025 12:00 PM EDT us Moxsie PINKED EDGE SEWING MACHINE OPERATOR-METHOD CONSULTANT LAB BLOOD ORDERABLES Final Result [address] [address] * Protime & INR (01/11/2025 11:55 AM EDT) Protime 10.9 9.8 - 13.2 sec 01/11/2025 12:19 PM EDT [facility] Comment:NEW REFERENCE RANGE Inr 0.9 0.9 - 1.2 01/11/2025 12:19 PM EDT [facility] Blood (PLASMA) 01/11/2025 11 :55 AM EDT 01/11/2025 12:00 PM EDT us Rianna Cuellar PINKED EDGE SEWING MACHINE OPERATOR-METHOD CONSULTANT LAB BLOOD ORDERABLES Final Result [address] [address] * Lipase (01/11/2025 11:55 AM EDT) Pathologist [facility] Lipase 29 17 - 40 U/L 01/11/2025 1:13 PM EDT [facility] PLASMA 01/11/2025 11:5 5 AM EDT 01/11/2025 12:00 PM EDT us Rianna Cuellar PINKED EDGE SEWING MACHINE OPERATOR-METHOD CONSULTANT LAB BLOOD ORDERABLES Final Result Performing Organization Address City/[facility] Co de Phone Number [address] [address] * (ABNORMAL) Comprehensive metabolic panel (01/11/2025 11:55 AM EDT) Pathologist [facility] Sodium 134 134 - 146 mmol/L 01/11/2025 12:20 PM EDT [facility] Potassium, Bld 4.7 3.5 - 5.0 mmol/L 01/11/2025 12:20 PM EDT [facility] Chloride 101 98 - 109 mmol/L 01/11/2025 12:20 PM EDT [facility] CO2 26 22 - 32 mmol/L 01/11/2025 12:20 PM EDT [facility] Anion gap 7 5 - 15 mmol/L 01/11/2025 12:20 PM EDT [facility] BUN 36(H) 5 - 23 mg/dL 01/11/2025 12:23 PM [facility] Creatinine 2.63(H) 0.40 - 1.00 mg/dL 01/11/2025 12:23 PM [facility] Comment:METHOD TRACEABLE TO IDTX STANDARD Glucose 102(H) 65 - 99 mg/dL 01/11/2025 12:20 PM [facility] Calcium 8.4(L) 8.5 - 10.5 mg/dL 01/11/2025 12:20 PM [facility] Total Protein 7.0 6.0 - 8.0 g/dL 01/11/2025 12:23 PM [facility] Albumin 3.8 3.2 - 5.3 g/dL 01/11/2025 12:23 PM [facility] Alkaline Phosphatase 95 39 - 130 U/L 01/11/2025 12:23 PM [facility] AST 35 0 - 41 U/L 01/11/2025 12:23 PM [facility] ALT 21 0 - 31 U/L 01/11/2025 12:23 PM [facility] Total bilirubin 0.7 0.3 - 1.2 mg/dL 01/11/2025 12:23 PM [facility] eGFR (CKD-EPI)non-rac e dependent 22(L) >59 ml/min/1.7 3sq.m 01/11/2025 12:23 PM [facility] Comment: Reported eGFR is based on the CKD-EPI 2020 equation that does not use a race coefficient. Blood (PLASMA) 01/11/2025 11 :55 AM EDT 01/11/2025 12:00 PM EDT us Rianna Cuellar PINKED EDGE SEWING MACHINE OPERATOR-METHOD CONSULTANT LAB BLOOD ORDERABLES Final Result [facility] [address], [place] [address] * ECG 12 lead (01/11/2025 11:47 AM EDT) 01/11/2025 11:4 7 AM EDT Narrative [facility] - 01/11/2025 3:14 PM EDT us Rianna Cuellar DO-METHOD CONSULTANT ECG ORDERABLES Final Resu lt Performing Organization Address City/[facility]/ZIP Co de Phone Number [facility] * Type and screen (01/11/2025 11:30 AM EDT) ABO O 01/11/2025 2:32 PM EDT [facility] RH Positive 01/11/2025 2:32 PM EDT [facility] Antibody Screen Negative 01/11/2025 2:33 PM EDT [facility] 01/11/2025 11:3 0 AM EDT us Rianna Cuellar PINKED EDGE SEWING MACHINE OPERATOR-METHOD CONSULTANT BLOOD BANK TEST ORDERABLES Edited Result - Final Performing Organization Address [facility] Co de Phone Number [facility] [address] [place] [address], [place] * ABO Rh Repeat (01/11/2025 11:30 AM EDT) ABO O 01/12/2025 6:02 PM EDT [facility] RH Positive 01/12/2025 6:02 PM EDT [facility] 01/11/2025 11:3 0 AM EDT us Rianna Cuellar PINKED EDGE SEWING MACHINE OPERATOR-METHOD CONSULTANT BLOOD BANK TEST ORDERABLES Final Result Performing Organization Address [facility] Co de Phone Number [facility] [address] [place] [phone], from Last 3 Months Insurance [employer] Advance Directives * Full Code (Latest Code Status on File) Date Activated Date Inactivated Comments 01/11/2025 2:55 PM 01/11/2025 7:41 PM Care Teams [employer] Relationship Specialty Start Date End Date Yasir Ledesma MD PCP - General 01/11/25
--- OUTSIDE RECORDS SUMMARY | 2025-03-19 20:25 | XMS_ITS | Patient Health Record ---
Author Organization The [facility] in [place] Address [address] [place] [address] Care Team Providers Care Parts Driver Name Role Phone Baltazar Malachi Primary Care Provider ARLETH LEDESMA Unavailable [phone] Kavya Nelson Unavailable [phone] Allergies Allergen (clinical drug ingredient) Drug/Non Drug Allergy documented on EMR Reaction Allergy Type Onset Date Status meperidine Demerol Unknown Drug Allergy Active Compazine hallucinating Drug Allergy Act zohaib ketorolac Ketorolac Unknown Drug Allergy Active Results Component Value Reference Range Notes UA (URINALYSIS), COMPLETE (8 1000) - IN OFFICE Reviewed date:08/31/2024 08:03:35 PM Interpretation: Performing Lab: Notes/Report: COLOR straw YELLOW - DAVON CLARITY clear CLEAR - CLEAR GLUCOSE neg NEG - NEG MG/DL BILIRUBIN neg NEG - NEG KETONES neg NEG - NEG MG/DL SPECIFIC GRAVITY 1.015 1.001 - 1.035 BLOOD, UR LARGE NEG - NEG MG/DL PH, UR 6.5 5.0 - 9.0 UROBILINOGEN neg 0.2 - 1.0 MG/DL NITRITE neg NEG - NEG PROTEIN pos WBC, UR pos 0 - 4 /HPF UA (URINALYSIS), COMPLETE (8 1000) - IN OFFICE Reviewed date:12/14/2024 08:43:40 PM Interpretation: Performing Lab: Notes/Report: COLOR yellow YELLOW - DAVON CLARITY clear CLEAR - CLEAR GLUCOSE neg NEG - NEG MG/DL BILIRUBIN neg NEG - NEG KETONES negh NEG - NEG MG/DL SPECIFIC GRAVITY 1.010 1.001 - 1.035 BLOOD, UR trace NEG - NEG MG/DL PH, UR 7 5.0 - 9.0 UROBILINOGEN neg 0.2 - 1.0 MG/DL NITRITE neg NEG - NEG PROTEIN trace WBC, UR trace 0 - 4 /HPF PROF 14(COMP METB) Reviewed date:01/16/2025 03:11:03 PM Interpretation: Performing Lab: Notes/Report: [facility] , Sodium 141 136-145 mmol/L Potassium 4.5 3.5-5.1 mmol/L Chloride 105 98-107 mmol/L Carbon Dioxide 31.0 21.0-32.0 mmol/L Anion Gap 9.5 Glucose 84 74-106 mg/dL Blood Urea Nitrogen 17.0 7.0-18.0 mg/dL Creatinine 0.82 0.55-1.02 mg/dL Estimated GFR ( Grace >60 >=60 mL/min/1.73m 2 Estimated GFR (Non- Essence >60 >=60 mL/min/1.73m 2 BUN Creatinine Ratio 20.7 Calcium 8.9 8.5-10.1 mg/dL Bilirubin Total 0.3 0.2-1.0 mg/dL Aspartate Amino Transferase 17 15-37 U/L Alanine Aminotransferase 23 14-59 U/L Alkaline Phosphatase 110 46-116 U/L Total Protein 6.3 6.4-8.2 g/dL Albumin Level 3.0 3.4-5.0 g/dL Globulin 3.3 Albumin Globulin Ratio 0.9 Performing Lab: see note ML - [facility] LB UA (CLEAN or CATCH) DRYING ROOM ATTENDANT or M ICRO IF IND. Reviewed date:03/22/2024 06:05:54 PM Interpretation: Performing Lab: Notes/Report: [facility] , Color Urine YELLOW YELLOW Clarity Urine SL CLOUDY CLEAR Specific [place] Urine 1.025 1.005-1.025 pH Urine 7.0 5.0-9.0 Protein Urine NEGATIVE NEG/TRACE mg/dL Glucose Urine UA NEGATIVE NEGATIVE mg/dL Bilirubin Urine NEGATIVE NEGATIVE Ketones Urine NEGATIVE NEGATIVE mg/dL Blood Urine LARGE NEGATIVE Nitrite Urine NEGATIVE NEGATIVE Urobilinogen Urine 1.0 0.2-1.0 EU/dL Leukocyte Esterase Urine SMALL NEGATIVE Urine Microscopic Indicated YES Performing Lab: see note ML - [facility] LB US biopsy FNA Reviewed date:04/09/2024 02:58:00 PM Interpretation: Performing Lab: Notes/Report: Source Facility: [facility]-[address] [place] [address] [place] [address] Ultrasound Report Signed with Hansa Patient: KRISTINE MOORE MR#: [id number] : 1980 Acct:[id number] Age/Sex: 43 / F ADM Date: 03/22/24 Loc: US Attending Dr: Arleth Ledesma M.D. Ordering Physician: Arleth Ledesma M.D. Date of Service: 03/22/24 Procedure(s): US biopsy FNA Accession Number(s): [id number] cc: Arleth Ledesma M.D. ADDENDUM The [place] [address] Patient Name: KRISTINE MOORE MRN: [id number] date: 1980 Sex: F Assigned Patient Location: Current Patient Location: Accession/Order Number: [id number] Exam Date: 03/22/2024 09:10 Report Date: 04/01/2024 05:12 At the request of: ARLETH LEDESMA Procedure: US biopsy FNA Begin Addendum #1 COLLECTED DATE: 03/22/2024 Final Diagnosis Report for [facility] [place] Pathological Diagnosis: Right parotid gland mass, FNA cytology: -Overall findings compatible with Alejo System Category 4A; Benign neoplasm, encompassing pleomorphic adenoma. 03/31/[address] Ledesma. Verified with Melissa that report was present in office. Original Report EXAMINATION: US biopsy FNA HISTORY: Neck Mass COMPARISON: No relevant comparison available. TECHNIQUE: After obtaining informed consent, an ultrasound-guided biopsy was performed in the usual sterile manner. FINDINGS: IMAGING: Ultrasound BIOPSY NEEDLE: 2 inch 25-gauge SPECIMEN TYPE, #, LOCATION: 4 fine-needle aspirates, 1. 1 cm right carotid mass MEDICATION: 3 cc 1% buffered lidocaine COMPLICATIONS: None. LABORATORY: OTHER: Negative. Addendum Dictated By: Carissa John M.D. Addendum Signed By: <Electronically signed by Carissa John M.D.> 04/07/241051 Addendum Cosigned By: DD/ TD/TT: / ADDENDUM US/US biopsy FNA IMPRESSION: Uneventful ultrasound guided biopsy. The patient was instructed to obtain follow up care and biopsy results from the referring physician. Electronically authenticated by: CARISSA JOHN Date: 04/01/2024 05:12 Addendum Dictated By: Carissa John M.D. Addendum Signed By: <Electronically signed by Carissa John M.D.> 04/07/241051 Addendum Cosigned By: DD/ TD/TT: / The [place] [address] Patient Name: KRISTINE MOORE MRN: [id number] date: 1980 Sex: F Assigned Patient Location: US Current Patient Location: Accession/Order Number: [id number] Exam Date: 03/22/2024 09:10 Report Date: 03/22/2024 10:51 At the request of: ARLETH LEDESMA Procedure: US biopsy FNA EXAMINATION: US biopsy FNA HISTORY: Neck Mass COMPARISON: No relevant comparison available. TECHNIQUE: After obtaining informed consent, an ultrasound-guided biopsy was performed in the usual sterile manner. FINDINGS: IMAGING: Ultrasound BIOPSY NEEDLE: 2 inch 25-gauge SPECIMEN TYPE, #, LOCATION: 4 fine-needle aspirates, 1.1 cm right carotid mass MEDICATION: 3 cc 1% buffered lidocaine COMPLICATIONS: None. LABORATORY: OTHER: Negative. US/US biopsy FNA IMPRESSION: Uneventful ultrasound guided biopsy. The patient was instructed to obtain follow up care and biopsy results from the referring physician. Electronically authenticated by: CARISSA JOHN Date: 03/22/2024 10:51 Dictated By: Carissa John M.D. Signed By: 03/22/24 105 DD/ 50 TD/TT: Protective Signal Repairer: [place] [address] Ultrasound Report Signed with Addenda Patient: KAREN MOORE MR#: [id number] : 1980 Acct:[id number] Age/Sex: 43 / F ADM Date: 03/22/24 Loc: US Attending Dr: Dev Ledesma M.D. Ordering Physician: Arleth Ledesma M.D. Date of Service: 03/22/24 Procedure(s): US bio psy FNA Accession Number(s): [id number] cc: Arleth Ledesma M.D. ADDENDUM The [address] [address] Patient Name: KRISTINE MOORE MRN: [id number] date: 1980 Sex: F Assigned Patient Location: US Current Patient Location: US Accession/Order Numb er: [id number] Exam Date: 03/22/2024 09:10 Report Date: 04/01/2024 05:12 At the request of: ARLETH LEDESMA Procedure: US biopsy FNA Begin Addendum # 1 COLLECTED DATE: 03/22/2024 Final Diagnosis Report for [facility] [place] Pathological Diagnosis: Right parotid gland mass, FNA cytology: -Overall findings compatible with Alejo System Category 4A; Benign neoplasm, encompassing pleomor phic adenoma. 03/31/2024 faxed to Gee Leedsma. Verified with Melissa that report was present in office. Original Report EXAMINATION: US biop sy FNA HISTORY: Neck Mass COMPARISON: No relev ant comparison available. TECHNIQUE: After obtaining informed consent, an ultrasound-guided biopsy was performed in the usu al sterile manner. FINDINGS: IMAGING: Ultrasound BIOPSY NEEDLE: 2 inc h 25-gauge SPECIMEN TYPE, #, LOCATION: 4 fine-needle aspirates, 1. 1 cm right carotid mass MEDICATION: 3 cc 1% buffered lidocaine COMPLICATIONS: None. LABORATORY: OTHER: Negative. Addendum Dictated By : Carissa John M.D. Addendum Signed By: <Electronically signed by Carissa John M.D.> 04/07/24 105 Addendum Cosigned By: DD/ TD/TT: / ADDENDUM U S/US biopsy FNA IMPRESSION: Uneventful ultrasoun d guided biopsy. The patient was instructed to obtain follow up care and biopsy results from the referring physician. Electronically authenticated by: CARISSA JOHN Date: 04/01/2024 05:12 Addendum Dictated By : Carissa John M.D. Addendum Signed By: <Electronically signed by Carissa John M.D.> 04/07/241051 Addendum Cosigned By: DD/ TD/TT: / [place] [address] Patient Name: KRISTINE MOORE MRN: [id number] date: 1980 Sex: F Assigned Patient Location: US Current Patient Location: Accession/Order Numb er: [id number] Exam Date: 03/22/2024 09:10 Report Date: 03/22/2024 10:51 At the request of: ARLETH LEDESMA Procedure: US biopsy FNA EXAMINATION: US biop sy FNA HISTORY: Neck Mass COMPARISON: No relev ant comparison available. TECHNIQUE: After obtaining informed consent, an ultrasound-guided biopsy was performed in the usu al sterile manner. FINDINGS: IMAGING: Ultrasound BIOPSY NEEDLE: 2 inc h 25-gauge SPECIMEN TYPE, #, LOCATION: 4 fine-needle aspirates, 1.1 cm right carotid mass MEDICATION: 3 cc 1% buffered lidocaine COMPLICATIONS: None. LABORATORY: OTHER: Negative. U S/US biopsy FNA IMPRESSION: Uneventful ultrasoun d guided biopsy. The patient was instructed to obtain follow up care and biopsy results from the referring physician. Electronically authenticated by: CARISSA JOHN Date: 03/22/2024 10:51 Dictated By: Danny John M.D. Signed By: 03/22/241052 DD/ 50 TD/TT: Protective Signal Repairer: CBC AUTO DIFF Reviewed date:03/23/2024 12:39:09 PM Interpretation: Performing Lab: Notes/Report: [facility] , White Blood Count 3.7 4.0-11.0 10 3/uL Red Blood Count 3.84 4.20-5.40 10 6/uL Hemoglobin 10.6 12.0-16.0 g/dL Hematocrit 34.1 36.0-48.0 % Mean Corpuscular Volume 88.8 81.0-99.0 fL Mean Corpuscular Hemoglobin 27.6 26.7-34.0 pg Mean Corpuscular HGB Conc 31.1 29.9-35.2 g/dL Red Cell Distribution Width 13.2 11.0-15.0 % Platelet Count 165 150-450 10 3/uL Mean Platelet Volume 10.0 9.5-13.5 fL Neutrophils Percent Auto 42.2 43.0-75.0 % Lymphocytes Percent Auto 48.4 20.5-60.0 % Monocytes Percent Auto 7.7 1.7-12.0 % Eosinophils Percent Auto 1.4 0.9-7.0 % Basophils Percent Auto 0.3 0.2-2.0 % Immature Granulocytes Pct Auto 0.0 0.0-0.5 % Neutrophils Absolute Auto 1.6 1.4-6.5 10 3/uL Lymphocytes Absolute Auto 1.8 1.2-3.8 10 3/uL Monocytes Absolute Auto 0.3 0.3-0.8 10 3/uL Eosinophils Absolute Auto 0.1 0.0-0.7 10 3/uL Basophils Absolute Auto 0.0 0.0-0.1 10 3/uL Immature Granulocytes Abs Auto 0.00 0.00-0.03 10 3/uL Performing Lab: see note ML - [facility] LB LIPASE Reviewed date:03/23/2024 12:39:09 PM Interpretation: Performing Lab: Notes/Report: [facility] , Lipase 35.0 16.0-77.0 U/L Performing Lab: see note ML - [facility] LB PROF 14(COMP METB) Reviewed date:03/23/2024 12:39:09 PM Interpretation: Performing Lab: Notes/Report: [facility] , Sodium 139 136-145 mmol/L Potassium 4.0 3.5-5.1 mmol/L Chloride 105 98-107 mmol/L Carbon Dioxide 30.4 21.0-32.0 mmol/L Anion Gap 7.6 Glucose 73 74-106 mg/dL Blood Urea Nitrogen 11.0 7.0-18.0 mg/dL Creatinine 0.68 0.55-1.02 mg/dL Estimated GFR ( Grace >60 >=60 Estimated GFR (Non- Essence >60 >=60 BUN Creatinine Ratio 16.2 Calcium 8.5 8.5-10.1 mg/dL Bilirubin Total 0.2 0.2-1.0 mg/dL Aspartate Amino Transferase 17 15-37 U/L Alanine Aminotransferase 25 14-59 U/L Alkaline Phosphatase 85 46-116 U/L Total Protein 6.2 6.4-8.2 g/dL Albumin Level 3.1 3.4-5.0 g/dL Globulin 3.1 Albumin Globulin Ratio 1.0 Performing Lab: see note ML - [facility] LB Erythrocyte Sedimentation Ra te Reviewed date:03/23/2024 12:39:09 PM Interpretation: Performing Lab: Notes/Report: [facility] , Erythrocyte Sedimentation Rate 10 <=20 mm/hr Performing Lab: see note - [facility] LB CBC AUTO DIFF Reviewed date:03/24/2024 08:31:16 AM Interpretation: Performing Lab: Notes/Report: [facility] , White Blood Count 4.4 4.0-11.0 10 3/uL Red Blood Count 3.88 4.20-5.40 10 6/uL Hemoglobin 10.7 12.0-16.0 g/dL Hematocrit 33.8 36.0-48.0 % Mean Corpuscular Volume 87.1 81.0-99.0 fL Mean Corpuscular Hemoglobin 27.6 26.7-34.0 pg Mean Corpuscular HGB Conc 31.7 29.9-35.2 g/dL Red Cell Distribution Width 13.0 11.0-15.0 % Platelet Count 191 150-450 10 3/uL Mean Platelet Volume 9.8 9.5-13.5 fL Neutrophils Percent Auto 59.2 43.0-75.0 % Lymphocytes Percent Auto 31.0 20.5-60.0 % Monocytes Percent Auto 7.3 1.7-12.0 % Eosinophils Percent Auto 2.1 0.9-7.0 % Basophils Percent Auto 0.2 0.2-2.0 % Immature Granulocytes Pct Auto 0.2 0.0-0.5 % Neutrophils Absolute Auto 2.6 1.4-6.5 10 3/uL Lymphocytes Absolute Auto 1.4 1.2-3.8 10 3/uL Monocytes Absolute Auto 0.3 0.3-0.8 10 3/uL Eosinophils Absolute Auto 0.1 0.0-0.7 10 3/uL Basophils Absolute Auto 0.0 0.0-0.1 10 3/uL Immature Granulocytes Abs Auto 0.01 0.00-0.03 10 3/uL Performing Lab: see note ML - [facility] LB PROF 14(COMP METB) Reviewed date:03/24/2024 08:31:16 AM Interpretation: Performing Lab: Notes/Report: [facility] , Sodium 140 136-145 mmol/L Potassium 3.5 3.5-5.1 mmol/L Chloride 106 98-107 mmol/L Carbon Dioxide 26.0 21.0-32.0 mmol/L Anion Gap 11.5 Glucose 91 74-106 mg/dL Blood Urea Nitrogen 7.0 7.0-18.0 mg/dL Creatinine 0.75 0.55-1.02 mg/dL Estimated GFR ( Grace >60 >=60 Estimated GFR (Non- Essence >60 >=60 BUN Creatinine Ratio 9.3 Calcium 8.6 8.5-10.1 mg/dL Bilirubin Total 0.2 0.2-1.0 mg/dL Aspartate Amino Transferase 13 15-37 U/L Alanine Aminotransferase 22 14-59 U/L Alkaline Phosphatase 85 46-116 U/L Total Protein 6.2 6.4-8.2 g/dL Albumin Level 3.0 3.4-5.0 g/dL Globulin 3.2 Albumin Globulin Ratio 0.9 Performing Lab: see note ML - [facility] LB Erythrocyte Sedimentation Ra te Reviewed date:03/24/2024 08:31:16 AM Interpretation: Performing Lab: Notes/Report: [facility] , Erythrocyte Sedimentation Rate 32 <=20 mm/hr Performing Lab: see note ML - [facility] LB XR acute abdomen series Reviewed date:03/26/2024 11:53:58 AM Interpretation: Performing Lab: Notes/Report: Source Facility: [facility] [place] [address] [place] [address] XRay Report Signed Patient: KRISTINE MOORE MR#: [id number] : 1980 Acct:[id number] Age/Sex: 43 / F ADM Date: 03/22/24 Loc: MS 220-[address]: Arleth Ledesma M.D. Ordering Physician: Arleth Ledesma M.D. Date of Service: 03/24/24 Procedure(s): XR acute abdomen series Accession Number(s): [id number] cc: Arleth Ledesma M.D. The [place] [address] Patient Name: KRISTINE MOORE MRN: [facility]:[id number] date: 1980 Sex: F Assigned Patient Location: MS Current Patient Location: MS Accession/Order Number: [id number] Exam Date: 03/24/2024 08:00 Report Date: 03/24/2024 08:34 At the request of: ARLETH LEDESMA Procedure: XR acute abdomen series EXAMINATION: XR acute abdomen series HISTORY: vomiting COMPARISON: No relevant comparison available. FINDINGS: LUNGS: No infiltrate, pneumothorax, or pleural effusion. MEDIASTINUM: No abnormal widening. BOWEL GAS PATTERN: Non-obstructed. Scattered air-fluid levels. Large amount of stool throughout the colon and rectum FREE AIR: None. CALCIFICATIONS: None significant. BONES: No fracture or visible bone lesion. OTHER: Right lower quadrant neurostimulator XR/XR acute abdomen series IMPRESSION: Large amount of stool throughout the colon and rectum Scattered air-fluid levels, consider an enteritis Electronically authenticated by: CARISSA JOHN Date: 03/24/2024 08:34 Dictated By: Carissa John M.D. Signed By: 03/24/24 0837 DD/ TD/TT: Protective Signal Repairer: [place] [address] XRay Report Signed Patient: KAREN MOORE MR#: [id number] : 1980 Acct:[id number] Age/Sex: 43 / F ADM Date: 03/22/24 Loc: MS 220-[address]: Dev Ledesma M.D. Ordering Physician: Arleth Ledesma M.D. Date of Service: 03/24/24 Procedure(s): XR acu te abdomen series Accession Number(s): [id number] cc: Arleth Ledesma M.D. The [place] [address] Patient Name: KRISTINE MOORE MRN: [id number] date: 1980 Sex: F Assigned Patient Location: MS Current Patient Location: MS Accession/Order Numb er: [id number] Exam Date: 03/24/2024 08:00 Report Date: 03/24/2024 08:34 At the request of: ARLETH LEDESMA Procedure: XR acute abdomen series EXAMINATION: XR acut e abdomen series HISTORY: vomiting COMPARISON: No relev ant comparison available. FINDINGS: LUNGS: No infiltrate , pneumothorax, or pleural effusion. MEDIASTINUM: No abno rmal widening. BOWEL GAS PATTERN: Non-obstructed. Scattered air-fluid levels. Large amount of stool throughout the colon and rectum FREE AIR: None. CALCIFICATIONS: None significant. BONES: No fracture o r visible bone lesion. OTHER: Right lower quadrant neurostimulator X R/XR acute abdomen series IMPRESSION: Large amount of stoo l throughout the colon and rectum Scattered air-fluid levels, consider an enteritis Electronically authenticated by: CARISSA JOHN Date: 03/24/2024 08:34 Dictated By: Danny John M.D. Signed By: 03/24/2437 DD/ TD/TT: Protective Signal Repairer: XR ankle LT min 3V Reviewed date:05/18/2024 12:59:50 PM Interpretation: Performing Lab: Notes/Report: Source Facility: [place] [address] XRay Report Signed Patient: KRISTINE MOORE MR#: [id number] : 1980 Acct:[id number] Age/Sex: 43 / F ADM Date: 05/17/24 Loc: ER Attending Dr: Ordering Physician: Rukhsana Woods Date of Service: 05/17/24 Procedure(s): XR ankle LT min 3V Accession Number(s): [id number] cc: Hoy,Arleth M.D.; Rukhsana Marker [address] [address] Patient Name: KRISTINE MOORE MRN: [id number] date: 1980 Sex: F Assigned Patient Location: ER Current Patient Location: Accession/Order Number: [id number] Exam Date: 05/17/2024 22:50 Report Date: 05/18/2024 00:50 At the request of: RUKHSANA MARKER Procedure: XR ankle LT min 3V XR ankle LT min 3V, 05/17/2024 9:50 PM CDT: History: fall, in shower. . Comparison: None. Technique: 3 views left ankle Findings/Impression: There is no acute fracture or malalignment. There is moderate soft tissue swelling over the medial malleolus. The mortise is preserved. The talar dome is intact. Electronically authenticated by: MAI DURAN Date: 05/18/2024 00:50 Dictated By: Mai Duran III, M.D. Signed By: 05/18/2451 DD/ TD/TT: Protective Signal Repairer: [place] [address] XRay Report Signed Patient: KAREN MOORE MR#: [id number] : 1980 Acct:[id number] Age/Sex: 43 / F ADM Date: 05/17/24 Loc: ER Attending Dr: Ordering Physician: Rukhsana Woods Date of Service: 05/17/24 Procedure(s): XR ank le LT min 3V Accession Number(s): [id number] cc: Arleth Ledesma M.D. ; Rukhsana Marker The [address] [id number] Patient Name: KRISTINE MOORE MRN: [id number] date: 1980 Sex: F Assigned Patient Location: ER Current Patient Location: Accession/Order Numb er: [id number] Exam Date: 05/17/2024 22:50 Report Date: 05/18/2024 00:50 At the request of: RUKHSANA MARKER Procedure: XR ankle LT min 3V XR ankle LT min 3V, 05/17/2024 9:50 PM CDT: History: fall, in shower. . Comparison: None. Technique: 3 views l eft ankle Findings/Impression: There is no acute fracture or malalignment. There is moderate soft tissue swelling over the me dial malleolus. The mortise is preserved. The talar dome is intact. Electronically authenticated by: MAI DURAN Date: 05/18/2024 00:50 Dictated By: Mai Duran III, M.D. Signed By: 05/18/2451 DD/ TD/TT: Protective Signal Repairer: XR tibia fibula LT 2V Reviewed date:05/18/2024 12:59:50 PM Interpretation: Performing Lab: Notes/Report: Source Facility: [place] [address] XRay Report Signed Patient: KRISTINE MOORE MR#: [id number] : 1980 Acct:[id number] Age/Sex: 43 / F ADM Date: 05/17/24 Loc: ER Attending Dr: Ordering Physician: Rukhsana Woods Date of Service: 05/17/24 Procedure(s): XR tibia fibula LT 2V Accession Number(s): [id number] cc: Arleth Ledesma M.D.; Rukhsana Woods [place] [address] Patient Name: KRISTINE MOORE MRN: [facility]:[id number] date: 1980 Sex: F Assigned Patient Location: ER Current Patient Location: ER Accession/Order Number: [id number] Exam Date: 05/17/2024 22:50 Report Date: 05/18/2024 01:01 At the request of: RUKHSANA WOODS Procedure: XR tibia fibula LT 2V X-RAY LEFT TIBIA AND FIBULA 2 VIEWS HISTORY: Pain. COMPARISON: None. FINDINGS: There is soft tissue edema. There is a left knee prosthesis. There is no acute fracture. There are no destructive bone lesions. There is no evidence of radiopaque soft tissue densities. XR/XR tibia fibula LT 2V IMPRESSION: Soft tissue edema, no acute bony abnormality. Electronically authenticated by: PRADEEP COFFEY Date: 05/18/2024 01:01 Dictated By: Pradeep Coffey M.D. Signed By: 05/18/24103 DD/ 0 TD/TT: Protective Signal Repairer: [place] [address] XRay Report Signed Patient: KAREN MOORE MR#: [id number] : 1980 Acct:[id number] Age/Sex: 43 / F ADM Date: 05/17/24 Loc: ER Attending Dr: Ordering Physician: Rukhsana Woods Date of Service: 05/17/24 Procedure(s): XR tib ia fibula LT 2V Accession Number(s): [id number] cc: Arleth Ledesma M.D. ; Rukhsana Woods [place] [id number] Patient Name: KRISTINE MOORE MRN: [id number] date: 1980 Sex: F Assigned Patient Location: ER Current Patient Location: ER Accession/Order Numb er: [id number] Exam Date: 05/17/2024 22:50 Report Date: 05/18/2024 01:01 At the request of: RUKHSANA WOODS Procedure: XR tibia fibula LT 2V X-RAY LEFT TIBIA AND FIBULA 2 VIEWS HISTORY: Pain. COMPARISON: None. FINDINGS: There is s oft tissue edema. There is a left knee prosthesis. There is no acute fracture. T here are no destructive bone lesions. There is no evidence of radiopaque soft tissue densities. X R/XR tibia fibula LT 2V IMPRESSION: Soft tissue edema, n o acute bony abnormality. Electronically authenticated by: PRADEEP COFFEY Date: 05/18/2024 01:01 Dictated By: Pradeep Coffey M.D. Signed By: 05/18/24103 DD/ 0 TD/TT: Protective Signal Repairer: RHETT Balderas or MICROSCOPIC Reviewed date:06/20/2024 10:16:56 PM Interpretation: Performing Lab: Notes/Report: [facility] , Color Urine DK YELLOW YELLOW Clarity Urine CLOUDY CLEAR Specific [place] Urine >=1.030 1.005-1.025 pH Urine 6.0 5.0-9.0 Protein Urine TRACE NEG/TRACE mg/dL Glucose Urine UA NEGATIVE NEGATIVE mg/dL Bilirubin Urine NEGATIVE NEGATIVE Ketones Urine NEGATIVE NEGATIVE mg/dL Blood Urine LARGE NEGATIVE Nitrite Urine NEGATIVE NEGATIVE Urobilinogen Urine 1.0 0.2-1.0 EU/dL Leukocyte Esterase Urine SMALL NEGATIVE WBC Urine 5-10 NONE SEEN #/HPF RBC Urine >100 0-2 #/HPF Bacteria Urine MODERATE NONE SEEN #/HPF Mucus Urine SMALL NONE SEEN Squamous Epithelial Cell Urine FEW NONE/RARE #/LPF Crystals Seen? Seen None Seen #/HPF Calcium Oxalate Crystals Urine MODERATE Cast Seen? NONE SEEN NONE SEEN #/LPF Performing Lab: see note ML - [facility] LB Urine Culture, Routine Reviewed date:06/22/2024 09:22:23 PM Interpretation: Performing Lab: Notes/Report: [facility] , Urine Culture, Routine See Below For Report Urine Culture, Routine Urine Culture, Routine Mixed urogenital cordell Urine Culture, Routine Urine Culture, Routine Less than 10,000 colonies/mL Urine Culture, Routine Urine Culture, Routine Performed at: [facility]rine Culture, Routine Urine Culture, Routine [address] [place], [place] [id number] Urine Culture, Routine Urine Culture, Routine Softball Winder: Bryce Queen PhD, Phone: [phone] Urine Culture, Routine Performing Lab: see note LC - [facility] LB SEE REPORT - [place] Id information not found for OBX-specific employee services manager legend CT abdomen pelvis wo con Reviewed date:06/21/2024 09:29:41 PM Interpretation: Performing Lab: Notes/Report: Source Facility: [facility] [place] [address] [place] [address] CT Scan Report Signed Patient: KRISTINE MOORE MR#: [id number] : 1980 Acct:[id number] Age/Sex: 43 / F ADM Date: 06/21/24 Loc: ER Attending Dr: Ordering Physician: Mouna Dunham D.O. Date of Service: 06/21/24 Procedure(s): CT abdomen pelvis wo con Accession Number(s): [id number] cc: Arleth Ledesma M.D. The [place] [address] Patient Name: KRISTINE MOORE MRN: [facility]:[id number] date: 1980 Sex: F Assigned Patient Location: ER Current Patient Location: ER Accession/Order Number: [id number] Exam Date: 06/21/2024 08:11 Report Date: 06/21/2024 08:35 At the request of: MOUNA DUNHAM Procedure: CT abdomen pelvis wo con EXAMINATION: CT abdomen pelvis wo con HISTORY: flank pain COMPARISON: No relevant comparison available. TECHNIQUE: Axial, Coronal, and Sagittal images were created without IV contrast. Dose reduction techniques were achieved by using automated exposure control and/or adjustment of mA and/or kV according to patient size and/or use of iterative reconstruction technique. FINDINGS: LUNG BASES: No visible pulmonary or pleural disease. LIVER: No enlargement, atrophy, abnormal density, or significant focal lesion. BILIARY: Surgical clips from cholecystectomy PANCREAS: No lesion, fluid collection, ductal dilatation, or atrophy. SPLEEN: No enlargement or focal lesion. ADRENALS: No mass or enlargement. KIDNEYS: No mass, obstruction, or calcification. BOWEL/MESENTERY: Suture lines in the stomach and left mid abdominal small bowel loops. Nonobstructive bowel gas pattern. AORTA/VASCULAR: No aneurysm or dissection. RETROPERITONEUM: No mass or adenopathy. LYMPH NODES: No adenopathy. URINARY BLADDER: No visible focal wall thickening, lesion, or calculus. PELVIC ORGANS: Hysterectomy ABDOMINAL WALL: No mass or hernia. BONES: No bony lesion or fracture. OTHER: Implanted right flank neurostimulator CT/CT abdomen pelvis wo con IMPRESSION: No obstructive uropathy Electronically authenticated by: CARISSA JOHN Date: 06/21/2024 08:35 Dictated By: Carissa John M.D. Signed By: 06/21/2437 DD/ 4 TD/TT: Protective Signal Repairer: [place] [address] CT Scan Report Signed Patient: KAREN MOORE MR#: [id number] : 1980 Acct:[id number] Age/Sex: 43 / F ADM Date: 06/21/24 Loc: ER Attending Dr: Ordering Physician: Mouna Dunham D.O. Date of Service: 06/21/24 Procedure(s): CT abd omen pelvis wo con Accession Number(s): [id number] cc: Arleth Ledesma M.D. [place] [address] Patient Name: KRISTINE MOORE MRN: [facility]:[id number] date: 1980 Sex: F Assigned Patient Location: ER Current Patient Location: ER Accession/Order Numb er: [id number] Exam Date: 06/21/2024 08:11 Report Date: 06/21/2024 08:35 At the request of: MOUNA DUNHAM Procedure: CT abdome n pelvis wo con EXAMINATION: CT abdo men pelvis wo con HISTORY: flank pain COMPARISON: No relev ant comparison available. TECHNIQUE: Axial, Coronal, and Sagittal images were created without IV contrast. Dose reduc tion techniques were achieved by using automated exposure control and/or adjustment of mA and/or kV according to patient size and/or use of iterative reconstruction technique. FINDINGS: LUNG BASES: No visib le pulmonary or pleural disease. LIVER: No enlargemen t, atrophy, abnormal density, or significant focal lesion. BILIARY: Surgical cl ips from cholecystectomy PANCREAS: No lesion, fluid collection, ductal dilatation, or atrophy. SPLEEN: No enlargeme nt or focal lesion. ADRENALS: No mass or enlargement. KIDNEYS: No mass, obstruction, or calcification. BOWEL/MESENTERY: Sut ure lines in the stomach and left mid abdominal small bowel loops. Nonobstructiv e bowel gas pattern. AORTA/VASCULAR: No aneurysm or dissection. RETROPERITONEUM: No mass or adenopathy. LYMPH NODES: No adenopathy. URINARY BLADDER: No visible focal wall thickening, lesion, or calculus. PELVIC ORGANS: Hysterectomy ABDOMINAL WALL: No m ass or hernia. BONES: No bony lesio n or fracture. OTHER: Implanted rig ht flank neurostimulator C T/CT abdomen pelvis wo con IMPRESSION: No obstructive uropathy Electronically authenticated by: CARISSA JOHN Date: 06/21/2024 08:35 Dictated By: Danny John M.D. Signed By: 06/21/24 0837 DD/ 0835 TD/TT: Protective Signal Repairer: CBC AUTO DIFF Reviewed date:07/06/2024 01:04:11 PM Interpretation: Performing Lab: Notes/Report: [facility] , White Blood Count 5.2 4.0-11.0 10 3/uL Red Blood Count 4.41 4.20-5.40 10 6/uL Hemoglobin 12.4 12.0-16.0 g/dL Hematocrit 39.2 36.0-48.0 % Mean Corpuscular Volume 88.9 81.0-99.0 fL Mean Corpuscular Hemoglobin 28.1 26.7-34.0 pg Mean Corpuscular HGB Conc 31.6 29.9-35.2 g/dL Red Cell Distribution Width 13.5 11.0-15.0 % Platelet Count 276 150-450 10 3/uL Mean Platelet Volume 9.3 9.5-13.5 fL Neutrophils Percent Auto 54.2 43.0-75.0 % Lymphocytes Percent Auto 37.7 20.5-60.0 % Monocytes Percent Auto 6.0 1.7-12.0 % Eosinophils Percent Auto 1.5 0.9-7.0 % Basophils Percent Auto 0.4 0.2-2.0 % Immature Granulocytes Pct Auto 0.2 0.0-0.5 % Neutrophils Absolute Auto 2.8 1.4-6.5 10 3/uL Lymphocytes Absolute Auto 2.0 1.2-3.8 10 3/uL Monocytes Absolute Auto 0.3 0.3-0.8 10 3/uL Eosinophils Absolute Auto 0.1 0.0-0.7 10 3/uL Basophils Absolute Auto 0.0 0.0-0.1 10 3/uL Immature Granulocytes Abs Auto 0.01 0.00-0.03 10 3/uL Performing Lab: see note ML - [facility] LB DRUG SCREEN RAPID (URINE) Reviewed date:07/09/2024 11:07:46 AM Interpretation: Performing Lab: Notes/Report: [facility] , Cannabinoid Screen Urine NEGATIVE NEGATIVE Phencyclidine Screen Urine NEGATIVE NEGATIVE Cocaine Screen Urine NEGATIVE NEGATIVE Methamphetamines Screen Urine NEGATIVE NEGATIVE Opiate Screen Urine NEGATIVE NEGATIVE Amphetamine Screen Urine NEGATIVE NEGATIVE Benzodiazepines Screen Urine NEGATIVE NEGATIVE Tricyclic Antidepressant Urine POSITIVE NEGATIVE Methadone Screen Urine NEGATIVE NEGATIVE Barbiturates Screen Urine NEGATIVE NEGATIVE Oxycodone Screen Urine NEGATIVE NEGATIVE Buprenorphine Screen Urine NEGATIVE NEGATIVE DRUG CLASS TEST SYSTEM CUT-OFF CONCENTRATIONS ARE FOLLOWS: AMP (Amphetamine): 500 ng/mL BAR (Barbiturates): 200 ng/mL BZO (Benzodiazepines): 150 ng/mL BUP (Buprenorphine): 10 ng/mL DAPHNIE (Cocaine): 150 ng/mL mAMP (Methamphetamine): 500 ng/mL MTD (Methadone): 200 ng/mL OPI (Opiates): 100 ng/mL OXY (Oxycodone): 100 ng/mL PCP (Phencyclidine): 25 ng/mL THC (Cannabinoids): 50 ng/mL TCA (Trycyclic Antidepressants): 300 ng/mL Performing Lab: see note - [facility] LB LACTATE or LACTIC ACID Reviewed date:07/06/2024 03:21:47 PM Interpretation: Performing Lab: Notes/Report: [facility] , Lactate/Lactic Acid 1.1 0.4-2.0 mmol/L Performing Lab: see note - [facility] LB MAGNESIUM Reviewed date:07/06/2024 03:21:47 PM Interpretation: Performing Lab: Notes/Report: [facility] , Magnesium 2.0 1.8-2.4 mg/dL Performing Lab: see note [facility] PROF CHEM 8 (BAS METB) Reviewed date:07/06/2024 01:04:11 PM Interpretation: Performing Lab: Notes/Report: [facility] , Sodium 138 136-145 mmol/L Potassium 3.7 3.5-5.1 mmol/L Chloride 102 98-107 mmol/L Carbon Dioxide 29.9 21.0-32.0 mmol/L Anion Gap 9.8 Glucose 88 74-106 mg/dL Blood Urea Nitrogen 15.0 7.0-18.0 mg/dL Creatinine 0.74 0.55-1.02 mg/dL Estimated GFR ( Grace >60 >=60 Estimated GFR (Non- Essence >60 >=60 BUN Creatinine Ratio 20.3 Calcium 9.2 8.5-10.1 mg/dL Performing Lab: see note - [facility] LB UA RANDOM W or MICROSCOPIC Reviewed date:07/06/2024 01:04:11 PM Interpretation: Performing Lab: Notes/Report: [facility] , Color Urine YELLOW YELLOW Clarity Urine CLEAR CLEAR Specific [place] Urine 1.025 1.005-1.025 pH Urine 6.0 5.0-9.0 Protein Urine NEGATIVE NEG/TRACE mg/dL Glucose Urine UA NEGATIVE NEGATIVE mg/dL Bilirubin Urine NEGATIVE NEGATIVE Ketones Urine NEGATIVE NEGATIVE mg/dL Blood Urine NEGATIVE NEGATIVE Nitrite Urine NEGATIVE NEGATIVE Urobilinogen Urine 0.2 0.2-1.0 EU/dL Leukocyte Esterase Urine SMALL NEGATIVE WBC Urine 5-10 NONE SEEN #/HPF RBC Urine 0-2 0-2 #/HPF Bacteria Urine TRACE NONE SEEN #/HPF Mucus Urine TRACE NONE SEEN Squamous Epithelial Cell Urine MODERATE NONE/RARE #/LPF Crystals Seen? None Seen None Seen #/HPF Cast Seen? NONE SEEN NONE SEEN #/LPF Urine Culture Indicated YES Performing Lab: see note ML - [facility] LB Urine Culture, Routine Reviewed date:07/09/2024 11:07:46 AM Interpretation: Performing Lab: Notes/Report: [facility] , Urine Culture, Routine See Below For Report Urine Culture, Routine Urine Culture, Routine Mixed urogenital cordell Urine Culture, Routine Urine Culture, Routine 10,000-25,000 col rhianna forming units per mL Urine Culture, Routine Urine Culture, Routine Performed at: - [facility] [place] Urine Culture, Routine Urine Culture, Routine [address] [place] [phone] Urine Culture, Routine Urine Culture, Routine Softball Winder: Bryce Queen PhD, Phone: [phone] Urine Culture, Routine Performing Lab: see note LC - [facility] LB SEE REPORT - [place] Id information not found for OBX-specific employee services manager legend CT abdomen pelvis w con Reviewed date:07/06/2024 01:04:11 PM Interpretation: Performing Lab: Notes/Report: Source Facility: [facility] [place] [address] [place] [address] CT Scan Report Signed Patient: KRISTINE MOORE MR#: [id number] : 1980 Acct:[id number] Age/Sex: 43 / F ADM Date: 07/06/24 Loc: ER Attending Dr: Ordering Physician: Genna Heaton M.D. Date of Service: 07/06/24 Procedure(s): CT abdomen pelvis w con Accession Number(s): [id number] cc: Arleth Ledesma M.D. The [address] [address] Patient Name: KRISTINE MOORE MRN: [id number] date: 1980 Sex: F Assigned Patient Location: ER Current Patient Location: ER Accession/Order Number: [id number] Exam Date: 07/06/2024 10:32 Report Date: 07/06/2024 11:09 At the request of: GENNA HEATON Procedure: CT abdomen pelvis w con EXAMINATION: CT abdomen pelvis w con HISTORY: Left-side abdominal pain, rule out diverticulitis ; vomiting, diarrhea COMPARISON: CT abdomen pelvis 06/21/2024 TECHNIQUE: Axial, Coronal, and Sagittal images were [...] lesion. ADRENALS: No mass or enlargement. KIDNEYS: No mass, obstruction, or calcification. BOWEL/MESENTERY: Prior gastric bypass surgery. Approximate 10 cm segment of slight wall thickening of the partially distended transverse colon. AORTA/VASCULAR: No aneurysm or dissection. RETROPERITONEUM: No mass or adenopathy. LYMPH NODES: No adenopathy. URINARY BLADDER: No visible focal wall thickening, lesion, or calculus. PELVIC ORGANS: Hysterectomy. ABDOMINAL WALL: No mass or hernia. BONES: No bony lesion or fracture. OTHER: Neurostimulator pack within right flank subcutaneous fat with neural electrodes within lumbar spine spine central canal. CT/CT abdomen pelvis w con IMPRESSION: 1. Mild wall thickening of a segment of proximal to mid transverse colon which may represent mild colitis. This is new since prior study, but the colon is only partially distended. 2. Prior gastric bypass surgery. No obstruction. Electronically authenticated by: VICK DAMON Date: 07/06/2024 11:09 Dictated By: Vick Damon M.D. Signed By: 07/06/24 1111 DD/ 1109 TD/TT: Protective Signal Repairer: [place] [address] CT Scan Report Signed Patient: KAREN MOORE MR#: [id number] : 1980 Acct:[id number] Age/Sex: 43 / F ADM Date: 07/06/24 Loc: ER Attending Dr: Ordering Physician: Genna Heaton M.D. Date of Service: 07/06/24 Procedure(s): CT abd omen pelvis w con Accession Number(s): [id number] cc: Arleth Ledesma M.D. [place] [address] Patient Name: KRISTINE MOORE MRN: [id number] date: 1980 Sex: F Assigned Patient Location: ER Current Patient Location: ER Accession/Order Numb er: [id number] Exam Date: 07/06/2024 10:32 Report Date: 07/06/2024 11:09 At the request of: GENNA HEATON Procedure: CT abdome n pelvis w con EXAMINATION: CT abdo men pelvis w con HISTORY: Left-side abdominal pain, rule out diverticulitis ; vomiting, diarrhea COMPARISON: CT abdom en pelvis 06/21/2024 TECHNIQUE: Axial, Coronal, and Sagittal images were obtained without and/or with IV contrast as indicated by examination type. Dose reduction techniques were achieved by usi ng automated exposure control and/or adjustment of mA and/or kV according to patient size and/or use of iterative reconstruction technique. FINDINGS: LUNG BASES: No visib le pulmonary or pleural disease. LIVER: No enlargemen t, atrophy, suspicious density, or significant focal lesion. BILIARY: Cholecystectomy. PANCREAS: No lesion, fluid collection, or abnormal duct dilatation. SPLEEN: No enlargeme nt or focal lesion. ADRENALS: No mass or enlargement. KIDNEYS: No mass, obstruction, or calcification. BOWEL/MESENTERY: Ese or gastric bypass surgery. Approximate 10 cm segment of slight wall thickeni ng of the partially distended transverse colon. AORTA/VASCULAR: No aneurysm or dissection. RETROPERITONEUM: No mass or adenopathy. LYMPH NODES: No adenopathy. URINARY BLADDER: No visible focal wall thickening, lesion, or calculus. PELVIC ORGANS: Hysterectomy. ABDOMINAL WALL: No m ass or hernia. BONES: No bony lesio n or fracture. OTHER: Neurostimulat or pack within right flank subcutaneous fat with neural electrodes within chidi mbar spine spine central canal. C T/CT abdomen pelvis w con IMPRESSION: 1. Mild wall thicken ing of a segment of proximal to mid transverse colon which may represent mild colitis. This is new since prior study, but the colon is only partially distended. 2. Prior gastric byp ass surgery. No obstruction. Electronically authenticated by: VICK DAMON Date: 07/06/2024 11:09 Dictated By: Vick Damon M.D. Signed By: 07/06/24 1111 DD/ 1109 TD/TT: Protective Signal Repairer: CBC AUTO DIFF Reviewed date:07/07/2024 08:02:43 AM Interpretation: Performing Lab: Notes/Report: [facility] , White Blood Count 3.3 4.0-11.0 10 3/uL Red Blood Count 3.42 4.20-5.40 10 6/uL Hemoglobin 9.6 12.0-16.0 g/dL Hematocrit 30.3 36.0-48.0 % Mean Corpuscular Volume 88.6 81.0-99.0 fL Mean Corpuscular Hemoglobin 28.1 26.7-34.0 pg Mean Corpuscular HGB Conc 31.7 29.9-35.2 g/dL Red Cell Distribution Width 13.3 11.0-15.0 % Platelet Count 181 150-450 10 3/uL Mean Platelet Volume 9.1 9.5-13.5 fL Neutrophils Percent Auto 52.6 43.0-75.0 % Lymphocytes Percent Auto 35.7 20.5-60.0 % Monocytes Percent Auto 8.4 1.7-12.0 % Eosinophils Percent Auto 2.4 0.9-7.0 % Basophils Percent Auto 0.6 0.2-2.0 % Immature Granulocytes Pct Auto 0.3 0.0-0.5 % Neutrophils Absolute Auto 1.8 1.4-6.5 10 3/uL Lymphocytes Absolute Auto 1.2 1.2-3.8 10 3/uL Monocytes Absolute Auto 0.3 0.3-0.8 10 3/uL Eosinophils Absolute Auto 0.1 0.0-0.7 10 3/uL Basophils Absolute Auto 0.0 0.0-0.1 10 3/uL Immature Granulocytes Abs Auto 0.01 0.00-0.03 10 3/uL Performing Lab: see note ML - [facility] PROF 14(COMP METB) Reviewed date:07/07/2024 08:02:43 AM Interpretation: Performing Lab: Notes/Report: [facility] , Sodium 136 136-145 mmol/L Potassium 3.6 3.5-5.1 mmol/L Chloride 102 98-107 mmol/L Carbon Dioxide 29.1 21.0-32.0 mmol/L Anion Gap 8.5 Glucose 100 74-106 mg/dL Blood Urea Nitrogen 12.0 7.0-18.0 mg/dL Creatinine 0.73 0.55-1.02 mg/dL Estimated GFR ( Grace >60 >=60 Estimated GFR (Non- Essence >60 >=60 BUN Creatinine Ratio 16.4 Calcium 8.3 8.5-10.1 mg/dL Bilirubin Total 0.3 0.2-1.0 mg/dL Aspartate Amino Transferase 9 15-37 U/L Alanine Aminotransferase 13 14-59 U/L Alkaline Phosphatase 77 46-116 U/L Total Protein 5.7 6.4-8.2 g/dL Albumin Level 2.9 3.4-5.0 g/dL Globulin 2.8 Albumin Globulin Ratio 1.0 Performing Lab: see note ML - [facility] Surgical Pathology ([facility]) Reviewed date:08/10/2024 09:59:46 PM Interpretation: Performing Lab: Notes/Report: Path Number: [id number] -- Diagnosis -- RIGHT PAROTID GLAND, 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 COMMENT: FOR AGRONOMY RESEARCH MANAGER, THE SLIDES WERE REVIEWED BY OTHER PATHOLOGISTS (TERESITA, MATT) WHO AGREE WITH THE DIAGNOSIS. Sathya Lockett M.D. 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 Processing Lab: [place] [address] Interpretation Performed at [address] [address] SURGICAL PATHOLOGY CONSULTATION Patient Name: KRISTINE MOORE. [facility] Rec: [id number] [facility] ANATOMIC PATHOLOGY [address] [place] [address] [address] abdomen pelvis w con Reviewed date:08/10/2024 09:59:46 PM Interpretation: Performing Lab: Notes/Report: Source Facility: [place] [address] CT Scan Report Signed Patient: KRISTINE MOORE MR#: [id number] : 1980 Acct:[id number] Age/Sex: 43 / F ADM Date: 08/10/24 Loc: ER Attending Dr: Ordering Physician: Sathya Quintana Date of Service: 08/10/24 Procedure(s): CT abdomen pelvis w con Accession Number(s): [id number] cc: Arleth Ledesma M.D. [place] [id number] Patient Name: KRISTINE MOORE MRN: [id number] date: 1980 Sex: F Assigned Patient Location: ER Current Patient Location: .[facility] Accession/Order Number: [id number] Exam Date: 08/10/2024 17:58 Report Date: 08/10/2024 20:04 At the request of: SATHYA QUINTANA Procedure: CT abdomen pelvis w con Indication: Left lower quadrant pain. Kidney stone versus diverticulitis. Comparison: 07/06/2024 exam Procedure: Axial images were made from the diaphragms through the symphysis pubis. No oral contrast was given prior to scanning. 100 mL Omnipaque 300 Intravenous contrast was given. Dose reduction techniques were achieved by using automated exposure control and/or adjustment of mA and/or kV according to patient size and/or use of iterative reconstruction technique. Findings: Liver/Biliary System: No liver masses. No intra or extrahepatic biliary dilatation. Status postcholecystectomy. Pancreas/Spleen: No evidence of acute pancreatitis. Pancreatic duct is not dilated. No pancreatic lesions. No splenomegaly or splenic masses. Kidneys/Adrenals: Normal symmetrical nephrograms. No renal masses. No renal or ureteral stones are seen. No hydronephrosis or hydroureter bilaterally. No adrenal nodules. Aorta/Vessels: No evidence of aortic aneurysm. Patent IVC, renal veins, hepatic veins and portal venous system. Bowel/Fluid/Nodes: Small bowel intussusception is seen in left side of the abdomen with no evidence of bowel obstruction, most likely transient intussusception (best seen on sagittal image LOC: -77.20). Follow-up may be recommended if clinically warranted. No bowel dilatation or bowel wall thickening. Mild increase in fecal matter in colon which may suggest constipation. Please correlate clinically. Appendix was not identified, however no secondary signs of appendicitis present. Status post gastric bypass. No ascites or fluid collections. No adenopathy. Lung bases: Clear. Other findings: No aggressive osseous lesions are seen. Pelvis: No pelvic masses or adenopathy. No free fluid seen in the pelvis. Status post hysterectomy. Unremarkable bladder. Other Findings: No aggressive osseous lesions are seen. CT/CT abdomen pelvis w con Impression: 1. Small bowel intussusception is seen in left side of the abdomen with no evidence of bowel obstruction, most likely transient intussusception. Follow-up may be recommended if clinically warranted. 2. Mild increase in fecal matter in the colon which may suggest constipation. Please correlate clinically. 3. No renal or ureteral stones are seen. No hydronephrosis. No evidence of diverticulitis. Electronically authenticated by: JACQUI ESCOBEDO Date: 08/10/2024 20:04 Dictated By: Jacqui Escobedo M.D. Signed By: 08/10/242005 DD/ 03 TD/TT: Protective Signal Repairer: [place] [address] CT Scan Report Signed Patient: KAREN MOORE MR#: [id number] : 1980 Acct:[id number] Age/Sex: 43 / F ADM Date: 08/10/24 Loc: ER Attending Dr: Ordering Physician: Sathya Quintana Date of Service: 08/10/24 Procedure(s): CT abd omen pelvis w con Accession Number(s): [id number] cc: Arleth Ledesma M.D. [place] [id number] Patient Name: KRISTINE MOORE MRN: [id number] date: 1980 Sex: F Assigned Patient Location: ER Current Patient Location: ED.MAIN Accession/Order Numb er: [id number] Exam Date: 4 17:58 Report Date: 08/10/2024 20:04 At the request of: SATHYA QUINTANA Procedure: CT abdome n pelvis w con Indication: Left low er quadrant pain. Kidney stone versus diverticulitis. Comparison: 4 exam Procedure: Axial renny ges were made from the diaphragms through the symphysis pubis. No oral contr ast was given prior to scanning. 100 mL Omnipaque 300 Intravenous contrast was given. Dose reduction techniques were achieved by using automated exposure control and/or adjustment of mA and/or kV according to patient size and/or use of iterative reconstruc tion technique. Findings: Liver/Biliary System : No liver masses. No intra or extrahepatic biliary dilatation. Status postcholecystectomy. Pancreas/Spleen: No evidence of acute pancreatitis. Pancreatic duct is not dilated. No pancreat ic lesions. No splenomegaly or splenic masses. Kidneys/Adrenals: No rmal symmetrical nephrograms. No renal masses. No renal or ureteral stones are seen. No hydronephrosis or hydroureter bilaterally. No adrenal nodules. Aorta/Vessels: No evidence of aortic aneurysm. Patent IVC, renal veins, hepatic veins and portal jaime ous system. Bowel/Fluid/Nodes: S mall bowel intussusception is seen in left side of the abdomen with no evid ence of bowel obstruction, most likely transient intussusception (bes t seen on sagittal image LOC: -77.20). Follow-up may be recommended if clinically warranted. No bowel dilatation or bowel wall thickening. Mild increase in fecal matter in colon which may suggest constipation. Please correlate clinically. Appendix was not identified, however no secondary signs o f appendicitis present. Status post gastric bypass. No ascites or fluid collections. No adenopathy. Lung bases: Clear. Other findings: No aggressive osseous lesions are seen. Pelvis: No pelvic ma sses or adenopathy. No free fluid seen in the pelvis. Status post hysterectomy. Unremarkable bladder. Other Findings: No aggressive osseous lesions are seen. C T/CT abdomen pelvis w con Impression: 1. Small bowel intussusception is seen in left side of the abdomen with no evidence of bowel obstruction, most likely transient intussusception. Follow-up may be recommended i f clinically warranted. 2. Mild increase in fecal matter in the colon which may suggest constipation. Please correlate clinically. 3. No renal or urete ral stones are seen. No hydronephrosis. No evidence of diverticulitis. Electronically authenticated by: JACQUI ESCOBEDO Date: 08/10/2024 20:04 Dictated By: Tarik Escobedo M.D. Signed By: 08/10/242005 DD/ 03 TD/TT: Protective Signal Repairer: AMYL[employer] Reviewed date:08/16/2024 08:58:12 PM Interpretation: Performing Lab: Notes/Report: [facility] , Amylase 50 25-115 U/L Performing Lab: see note ML - [facility] LB CBC AUTO DIFF Reviewed date:08/16/2024 08:58:12 PM Interpretation: Performing Lab: Notes/Report: [facility] , White Blood Count 5.5 4.0-11.0 10 3/uL Red Blood Count 4.44 4.20-5.40 10 6/uL Hemoglobin 12.2 12.0-16.0 g/dL Hematocrit 38.1 36.0-48.0 % Mean Corpuscular Volume 85.8 81.0-99.0 fL Mean Corpuscular Hemoglobin 27.5 26.7-34.0 pg Mean Corpuscular HGB Conc 32.0 29.9-35.2 g/dL Red Cell Distribution Width 13.1 11.0-15.0 % Platelet Count 236 150-450 10 3/uL Mean Platelet Volume 9.8 9.5-13.5 fL Neutrophils Percent Auto 53.0 43.0-75.0 % Lymphocytes Percent Auto 38.7 20.5-60.0 % Monocytes Percent Auto 6.4 1.7-12.0 % Eosinophils Percent Auto 1.3 0.9-7.0 % Basophils Percent Auto 0.4 0.2-2.0 % Immature Granulocytes Pct Auto 0.2 0.0-0.5 % Neutrophils Absolute Auto 2.9 1.4-6.5 10 3/uL Lymphocytes Absolute Auto 2.1 1.2-3.8 10 3/uL Monocytes Absolute Auto 0.4 0.3-0.8 10 3/uL Eosinophils Absolute Auto 0.1 0.0-0.7 10 3/uL Basophils Absolute Auto 0.0 0.0-0.1 10 3/uL Immature Granulocytes Abs Auto 0.01 0.00-0.03 10 3/uL Performing Lab: see note ML - [facility] LB LACTATE or LACTIC ACID Reviewed date:08/16/2024 08:58:12 PM Interpretation: Performing Lab: Notes/Report: [facility] , Lactate/Lactic Acid 0.9 0.4-2.0 mmol/L Performing Lab: see note ML - [facility] LB LIPASE Reviewed date:08/16/2024 08:58:12 PM Interpretation: Performing Lab: Notes/Report: [facility] , Lipase 66.0 16.0-77.0 U/L Performing Lab: see note ML - [facility] LB MAGNESIUM Reviewed date:08/16/2024 08:58:12 PM Interpretation: Performing Lab: Notes/Report: [facility] , Magnesium 2.0 1.8-2.4 mg/dL Performing Lab: see note ML - [facility] LB UA (CLEAN or CATCH) DRYING ROOM ATTENDANT or M ICRO IF IND. Reviewed date:08/16/2024 08:58:12 PM Interpretation: Performing Lab: Notes/Report: [facility] , Color Urine LT. YELLOW YELLOW Clarity Urine SL CLOUDY CLEAR Specific [place] Urine 1.020 1.005-1.025 pH Urine 7.5 5.0-9.0 Protein Urine NEGATIVE NEG/TRACE mg/dL Glucose Urine UA NEGATIVE NEGATIVE mg/dL Bilirubin Urine NEGATIVE NEGATIVE Ketones Urine NEGATIVE NEGATIVE mg/dL Blood Urine LARGE NEGATIVE Nitrite Urine NEGATIVE NEGATIVE Urobilinogen Urine 1.0 0.2-1.0 EU/dL Leukocyte Esterase Urine LARGE NEGATIVE Urine Microscopic Indicated YES Performing Lab: see note ML - [facility] LB URINE MICROSCOPIC ONLY Reviewed date:08/16/2024 08:58:12 PM Interpretation: Performing Lab: Notes/Report: [facility] , WBC Urine 10-20 NONE SEEN #/HPF RBC Urine 20-50 0-2 #/HPF Bacteria Urine SMALL NONE SEEN #/HPF Mucus Urine NONE SEEN NONE SEEN Squamous Epithelial Cell Urine FEW NONE/RARE #/LPF Crystals Seen? None Seen None Seen #/HPF Cast Seen? NONE SEEN NONE SEEN #/LPF Urine Culture Indicated YES Performing Lab: see note ML - [facility] LB Blood Culture 1 Reviewed date:08/21/2024 06:30:39 PM Interpretation: Performing Lab: Notes/Report: [facility] , Blood Culture 1 See Below For Report Blood Culture 1 NG5D NO GROWTH AT 5 DAYS. Performing Lab: see note ML - [facility] LB Blood Culture 2 Reviewed date:08/21/2024 06:30:39 PM Interpretation: Performing Lab: Notes/Report: [facility] , Blood Culture 2 See Below For Report Blood Culture 2 NG5D NO GROWTH AT 5 DAYS. Performing Lab: see note ML - [facility] LB CT abdomen pelvis wo con Reviewed date:08/16/2024 08:58:12 PM Interpretation: Performing Lab: Notes/Report: Source Facility: [facility]-[address] [place] [address] CT Scan Report Signed Patient: KRISTINE MOORE MR#: [id number] : 1980 Acct:[id number] Age/Sex: 43 / F ADM Date: 08/16/24 Loc: ER Attending Dr: Ordering Physician: Mouna Dunham D.O. Date of Service: 08/16/24 Procedure(s): CT abdomen pelvis wo con Accession Number(s): [id number] cc: Arleth Ledesma M.D. [place] [address] Patient Name: KRISTINE MOORE MRN: [id number] date: 1980 Sex: F Assigned Patient Location: ER Current Patient Location: ER Accession/Order Number: [id number] Exam Date: 08/16/2024 10:21 Report Date: 08/16/2024 10:48 At the request of: MOUNA DUNHAM Procedure: CT abdomen pelvis wo con EXAMINATION: CT abdomen pelvis wo con HISTORY: flank pain COMPARISON: No relevant comparison available. TECHNIQUE: Axial, Coronal, and Sagittal images were created without IV contrast. Dose reduction techniques were achieved by using automated exposure control and/or adjustment of mA and/or kV according to patient size and/or use of iterative reconstruction technique. FINDINGS: LUNG BASES: No visible pulmonary or pleural disease. LIVER: No enlargement, atrophy, abnormal density, or significant focal lesion. BILIARY: Surgical clips from cholecystectomy PANCREAS: No lesion, fluid collection, ductal dilatation, or atrophy. SPLEEN: No enlargement or focal lesion. ADRENALS: No mass or enlargement. KIDNEYS: No mass, obstruction, or calcification. BOWEL/MESENTERY: Suture lines of gastroesophageal junction. Nonobstructive bowel gas pattern. Normal appendix. AORTA/VASCULAR: No aneurysm or dissection. RETROPERITONEUM: No mass or adenopathy. LYMPH NODES: No adenopathy. URINARY BLADDER: No visible focal wall thickening, lesion, or calculus. PELVIC ORGANS: No visible mass. Pelvic organs appropriate for patient age. ABDOMINAL WALL: No mass or hernia. BONES: No bony lesion or fracture. OTHER: Implanted neurostimulator with the leads extending to the left L3-4 and L4-L5 neuroforamen CT/CT abdomen pelvis wo con IMPRESSION: No acute intraperitoneal abnormality Electronically authenticated by: CARISSA JOHN Date: 08/16/2024 10:48 Dictated By: Carissa John M.D. Signed By: 08/16/24 1050 DD/ 1048 TD/TT: Protective Signal Repairer: [place] [address] CT Scan Report Signed Patient: KAREN MOORE MR#: [id number] : 1980 Acct:[id number] Age/Sex: 43 / F ADM Date: 08/16/24 Loc: ER Attending Dr: Ordering Physician: Mouna Dunham D.O. Date of Service: 08/16/24 Procedure(s): CT abd omen pelvis wo con Accession Number(s): [id number] cc: Arleth Ledesma M.D. [place] [id number] Patient Name: KRISTINE MOORE MRN: [id number] date: 1980 Sex: F Assigned Patient Location: ER Current Patient Location: ER Accession/Order Numb er: [id number] Exam Date: 10:21 Report Date: 08/16/2024 10:48 At the request of: MOUNA DUNHAM Procedure: CT abdome n pelvis wo con EXAMINATION: CT abdo men pelvis wo con HISTORY: flank pain COMPARISON: No relev ant comparison available. TECHNIQUE: Axial, Coronal, and Sagittal images were created without IV contrast. Dose reduc tion techniques were achieved by using automated exposure control and/or adjustment of mA and/or kV according to patient size and/or use of iterative reconstruction technique. FINDINGS: LUNG BASES: No visib le pulmonary or pleural disease. LIVER: No enlargemen t, atrophy, abnormal density, or significant focal lesion. BILIARY: Surgical cl ips from cholecystectomy PANCREAS: No lesion, fluid collection, ductal dilatation, or atrophy. SPLEEN: No enlargeme nt or focal lesion. ADRENALS: No mass or enlargement. KIDNEYS: No mass, obstruction, or calcification. BOWEL/MESENTERY: Sut ure lines of gastroesophageal junction. Nonobstructive bowel gas pattern. Normal appendix. AORTA/VASCULAR: No aneurysm or dissection. RETROPERITONEUM: No mass or adenopathy. LYMPH NODES: No adenopathy. URINARY BLADDER: No visible focal wall thickening, lesion, or calculus. PELVIC ORGANS: No visible mass. Pelvic organs appropriate for patient age. ABDOMINAL WALL: No m ass or hernia. BONES: No bony lesio n or fracture. OTHER: Implanted neurostimulator with the leads extending to the left L3-4 and L4-L5 neuroforamen C T/CT abdomen pelvis wo con IMPRESSION: No acute intraperito jonah abnormality Electronically authenticated by: CARISSA JOHN Date: 08/16/2024 10:48 Dictated By: Danny John M.D. Signed By: 08/16/24 1050 DD/ 1048 TD/TT: Protective Signal Repairer: CT abdomen pelvis wo con Reviewed date:08/31/2024 08:03:35 PM Interpretation: Performing Lab: Notes/Report: Source Facility: [place] [address] CT Scan Report Signed Patient: KRISTINE MOORE MR#: [id number] : 1980 Acct:[id number] Age/Sex: 43 / F ADM Date: 08/31/24 Loc: ER Attending Dr: Ordering Physician: Yvette Rubio Date of Service: 08/31/24 Procedure(s): CT abdomen pelvis wo con Accession Number(s): [id number] cc: Arleth Ledesma M.D. [place] [address] Patient Name: KRISTINE MOORE MRN: [id number] date: 1980 Sex: F Assigned Patient Location: ER Current Patient Location: ER Accession/Order Number: [id number] Exam Date: 08/31/2024 16:30 Report Date: 08/31/2024 17:17 At the request of: YVETTE RUBIO Procedure: CT abdomen pelvis wo con EXAM: CT scan of the abdomen and pelvis without contrast. Dose reduction technique used: Automated exposure control and/or adjustment of the mA and/or kV according to patient size and/or use of iterative reconstruction technique. REASON FOR EXAM: left flank pain, hematuria COMPARISON: CT scan dated 08/16/2024 FINDINGS: Prominent rectal fecal loading. Gastric bypass cholecystectomy. Hysterectomy. Lumbar neurostimulators. No renal, ureteral or bladder calculi. No hydronephrosis. No evidence of appendicitis. No free fluid in the abdomen or pelvis. No free intraperitoneal air. No dilated or thickened loops of small bowel or colon. Liver, pancreas, spleen, bilateral kidneys, and bilateral adrenal glands are otherwise unremarkable within the limitations of noncontrast CT. No lymphadenopathy in the abdomen or pelvis. Remainder unremarkable. CT/CT abdomen pelvis wo con IMPRESSION: 1. No acute abnormalities in the abdomen or pelvis. 2. Prominent rectal fecal loading may indicate constipation or impaction, correlate clinically. Electronically authenticated by: PEGGY MALDONADO Date: 08/31/2024 17:17 Dictated By: Peggy Maldonado M.D. Signed By: 08/31/241719 DD/ 16 TD/TT: Protective Signal Repairer: [place] [address] CT Scan Report Signed Patient: KAREN MOORE MR#: [id number] : 1980 Acct:[id number] Age/Sex: 43 / F ADM Date: 08/31/24 Loc: ER Attending Dr: Ordering Physician: Yvette Rubio Date of Service: 08/31/24 Procedure(s): CT abd omen pelvis wo con Accession Number(s): [id number] cc: Arleth Ledesma M.D. [place] [id number] Patient Name: KRISTINE MOORE MRN: [id number] date: 1980 Sex: F Assigned Patient Location: ER Current Patient Location: ER Accession/Order Numb er: [id number] Exam Date: 4 16:30 Report Date: 08/31/2024 17:17 At the request of: YVETTE RUBIO Procedure: CT abdome n pelvis wo con EXAM: CT scan of the abdomen and pelvis without contrast. Dose reduction techn ique used: Automated exposure control and/or adjustment of the mA and/or kV according to patient size and/or use of iterative reconstruction technique. REASON FOR EXAM: lef t flank pain, hematuria COMPARISON: CT scan dated 08/16/2024 FINDINGS: Prominent rectal fec al loading. Gastric bypass cholecystectomy. Hysterectomy. Lumbar neurostimulators. No renal, ureteral o r bladder calculi. No hydronephrosis. No evidence of appendicitis. No glenn e fluid in the abdomen or pelvis. No free intraperitoneal air. No dilated or thickened loops of small bowel or colon. Liver, pancreas, spleen, bilateral kidneys, and bilateral adrenal glands are otherwise unremarkable within the limitations of noncontrast CT. No lymphadenopathy in the abdomen or pelvis. Remainder unremarkable. C T/CT abdomen pelvis wo con IMPRESSION: 1. No acute abnormalities in the abdomen or pelvis. 2. Prominent rectal fecal loading may indicate constipation or impaction, correlate clinically. Electronically authenticated by: PGEGY MALDONADO Date: 08/31/2024 17:17 Dictated By: Marcio Maldonado M.D. Signed By: 08/31/24 1727 DD/ 1835 TD/TT: Protective Signal Repairer: Urine Culture, Routine Reviewed date:10/01/2024 02:08:22 PM Interpretation: Performing Lab: Notes/Report: [facility] , Urine Culture, Routine See Below For Report Urine Culture, Routine Urine Culture, Routine Mixed urogenital cordell Urine Culture, Routine Urine Culture, Routine 10,000-25,000 col rhianna forming units per mL Urine Culture, Routine Urine Culture, Routine Performed at: [facility] Urine Culture, Routine Urine Culture, Routine [address] [place], [place] [id number] Urine Culture, Routine Urine Culture, Routine Softball Winder: Bryce Queen PhD, Phone: [phone] Urine Culture, Routine Performing Lab: see note LC - [facility] LB SEE REPORT - [place] Id information not found for OBX-specific employee services manager legend CBC AUTO DIFF Reviewed date:12/14/2024 08:43:40 PM Interpretation: Performing Lab: Notes/Report: [facility] , White Blood Count 4.8 4.0-11.0 10 3/uL Red Blood Count 4.13 4.20-5.40 10 6/uL Hemoglobin 10.4 12.0-16.0 g/dL Hematocrit 33.6 36.0-48.0 % Mean Corpuscular Volume 81.4 81.0-99.0 fL Mean Corpuscular Hemoglobin 25.2 26.7-34.0 pg Mean Corpuscular HGB Conc 31.0 29.9-35.2 g/dL Red Cell Distribution Width 15.1 11.0-15.0 % Platelet Count 212 150-450 10 3/uL Mean Platelet Volume 9.6 9.5-13.5 fL Neutrophils Percent Auto 48.4 43.0-75.0 % Lymphocytes Percent Auto 41.5 20.5-60.0 % Monocytes Percent Auto 8.4 1.7-12.0 % Eosinophils Percent Auto 1.5 0.9-7.0 % Basophils Percent Auto 0.2 0.2-2.0 % Immature Granulocytes Pct Auto 0.0 0.0-0.5 % Neutrophils Absolute Auto 2.3 1.4-6.5 10 3/uL Lymphocytes Absolute Auto 2.0 1.2-3.8 10 3/uL Monocytes Absolute Auto 0.4 0.3-0.8 10 3/uL Eosinophils Absolute Auto 0.1 0.0-0.7 10 3/uL Basophils Absolute Auto 0.0 0.0-0.1 10 3/uL Immature Granulocytes Abs Auto 0.00 0.00-0.03 10 3/uL Performing Lab: see note ML - [facility] FREE T3 Reviewed date:12/14/2024 08:43:40 PM Interpretation: Performing Lab: Notes/Report: [facility] , Free T3 2.74 2.18-3.98 pg/mL Performing Lab: see note ML - [facility] LB GLYCOHEMOGLOBIN A1C Reviewed date:12/14/2024 08:43:40 PM Interpretation: Performing Lab: Notes/Report: [facility] , Glycohemoglobin A1C 5.1 4.5-6.2 % ADA RECOMMENDED LIMIT 4.0 - 6.0 ADA THERAPEUTIC TARGET < 7.0 ACTION SUGGESTED > 7.0 Estimated Average Glucose 100 Performing Lab: see note ML - [facility] LIPID PROFILE Reviewed date:12/14/2024 08:43:40 PM Interpretation: Performing Lab: Notes/Report: [facility] , Triglycerides 66 <=150 mg/dL Cholesterol 129 <=200 mg/dL HDL Cholesterol 73 40-60 mg/dL > or =60 mg/dl - LOW CARDIOVASCULAR RISK <40 mg/dl - HIGH CARDIOVASCULAR RISK LDL Cholesterol Calculated 43.0 <100 mg/dl OPTIMAL 100-129 mg/dl NEAR OR ABOVE OPTIMAL 130-159 mg/dl BORDERLINE HIGH 160-189 mg/dl HIGH >190 mg/dl VERY HIGH VLDL CHOLESTEROL 13.2 Chol HDL Ratio 1.8 3.3 - 4.4 LOW RISK 4.4 - 7.1 AVERAGE RISK 7.1 - 11.0 MODERATE RISK >11.0 HIGH RISK Performing Lab: see note - [facility] LB PROF 14(COMP METB) Reviewed date:12/14/2024 08:43:40 PM Interpretation: Performing Lab: Notes/Report: [facility] , Sodium 140 136-145 mmol/L Potassium 4.7 3.5-5.1 mmol/L Chloride 104 98-107 mmol/L Carbon Dioxide 32.0 21.0-32.0 mmol/L Anion Gap 8.7 Glucose 80 74-106 mg/dL Blood Urea Nitrogen 15.0 7.0-18.0 mg/dL Creatinine 0.79 0.55-1.02 mg/dL Estimated GFR ( Grace >60 >=60 mL/min/1.73m 2 Estimated GFR (Non- Essence >60 >=60 mL/min/1.73m 2 BUN Creatinine Ratio 19.0 Calcium 8.2 8.5-10.1 mg/dL Bilirubin Total 0.2 0.2-1.0 mg/dL Aspartate Amino Transferase 15 15-37 U/L Alanine Aminotransferase 20 14-59 U/L Alkaline Phosphatase 124 46-116 U/L Total Protein 6.7 6.4-8.2 g/dL Albumin Level 3.3 3.4-5.0 g/dL Globulin 3.4 Albumin Globulin Ratio 1.0 Performing Lab: see note ML - [facility] LB T4 Reviewed date:12/14/2024 08:43:40 PM Interpretation: Performing Lab: Notes/Report: [facility] , T4 Thyroxine 7.50 4.80-13.90 ug/dL Performing Lab: see note - [facility] LB TSH Reviewed date:12/14/2024 08:43:40 PM Interpretation: Performing Lab: Notes/Report: [facility] , Thyroid Stimulating Hormone 1.175 0.358-3.740 uIU/mL Performing Lab: see note ML - [facility] LB CT abdomen pelvis w con Reviewed date:09/28/2024 02:46:50 PM Interpretation: Performing Lab: Notes/Report: Source Facility: [facility]-[address] [place] [address] [place] [address] CT Scan Report Signed Patient: KRISTINE MOORE MR#: [id number] : 1980 Acct:[id number] Age/Sex: 43 / F ADM Date: 09/28/24 Loc: ER Attending Dr: Ordering Physician: Genna Heaton M.D. Date of Service: 09/28/24 Procedure(s): CT abdomen pelvis w con Accession Number(s): [id number] cc: Arleth Ledesma M.D. [place] [id number] Patient Name: KRISTINE MOORE MRN: [id number] date: 1980 Sex: F Assigned Patient Location: ER Current Patient Location: ER Accession/Order Number: [id number] Exam Date: 09/28/2024 01:33 Report Date: 09/28/2024 02:26 At the request of: GENNA HEATON Procedure: CT abdomen pelvis w con EXAM: CT abdomen pelvis w con HISTORY: LLQ pain COMPARISON: CT abdomen and pelvis examination dated 08/31/2024. TECHNIQUE: Axial CT images through the abdomen and pelvis were obtained after the intravenous administration of contrast. Coronal and sagittal reformats were obtained. Dose reduction techniques were achieved by using automated exposure control and/or adjustment of mA and/or kV according to patient size and/or use of iterative reconstruction technique. FINDINGS: There is a new focal groundglass opacity in the right lower lobe. Abdomen: The liver and spleen enhance homogeneously without focal lesion. There is no intra or extrahepatic biliary duct dilatation. The gallbladder is surgically absent. There are postsurgical changes of a gastric bypass. Otherwise, the pancreas, adrenal glands, kidneys, and bowel loops are unremarkable. There is no mesenteric or retroperitoneal lymphadenopathy. The patient is status post an appendectomy. A right flank neurostimulator device is in place. This causes streak artifact which renders evaluation of adjacent structures suboptimal. Pelvis: The bladder and rectum are unremarkable. There is no iliac or inguinal lymphadenopathy. The patient is status post a hysterectomy. Bone windows show no aggressive osseous lesions. CT/CT abdomen pelvis w con IMPRESSION: 1. No specific etiology identified to explain the patient's abdominal pain. 2. New focal groundglass opacity in the right lower lobe, concerning for developing infection. 3. Status post cholecystectomy, gastric bypass, appendectomy, and hysterectomy. Electronically authenticated by: Fatuma CHAN Date: 09/28/2024 02:26 Dictated By: Vipul Chan M.D. Signed By: 09/28/24227 DD/ 5 TD/TT: Protective Signal Repairer: [place] [address] CT Scan Report Signed Patient: KAREN MOORE MR#: [id number] : 1980 Acct:[id number] Age/Sex: 43 / F ADM Date: 09/28/24 Loc: ER Attending Dr: Ordering Physician: Genna Heaton M.D. Date of Service: 09/28/24 Procedure(s): CT abd omen pelvis w con Accession Number(s): [id number] cc: Arleth Ledesma M.D. [place] [address] Patient Name: KRISTINE MOORE MRN: [facility]:[id number] date: 1980 Sex: F Assigned Patient Location: ER Current Patient Location: ER Accession/Order Numb er: [id number] Exam Date: 01:33 Report Date: 09/28/2024 02:26 At the request of: GENNA HEATON Procedure: CT abdome n pelvis w con EXAM: CT abdomen pel vis w con HISTORY: LLQ pain COMPARISON: CT abdom en and pelvis examination dated 08/31/2024. TECHNIQUE: Axial CT images through the abdomen and pelvis were obtained after the intravenous administration of contrast. Coronal and sagittal reformats were obtained. Dose reduction techniques were achieved by using automated exposure control and/or adjustment of mA and/or kV according to patient size and/or use of iterative reconstruc tion technique. FINDINGS: There is a new focal groundglass opacity in the right lower lobe. Abdomen: The liver a nd spleen enhance homogeneously without focal lesion. There is no intra or extrahepatic biliary duct dilatation. The gallbladder is surgically absent. There are postsurgic al changes of a gastric bypass. Otherwise, the pancreas, adrenal glands, kidn eys, and bowel loops are unremarkable. There is no mesenteric or retroperitoneal lymphadenopathy. The patient is status post an appendectomy. A right flank neurostimulator device is in place. This causes streak artifact which renders evalua tion of adjacent structures suboptimal. Pelvis: The bladder and rectum are unremarkable. There is no iliac or inguinal lymphadenopathy. The patient is status post a hysterectomy. Bone windows show no aggressive osseous lesions. C T/CT abdomen pelvis w con IMPRESSION: 1. No specific etiol ogy identified to explain the patient's abdominal pain. 2. New focal groundg lass opacity in the right lower lobe, concerning for developing infection. 3. Status post cholecystectomy, gastric bypass, appendectomy, and hysterectomy. Electronically authenticated by: Fatuma CHAN Date: 09/28/2024 02:26 Dictated By: Vipul Chan M.D. Signed By: 09/28/24227 DD/ 5 TD/TT: Protective Signal Repairer: HCG Qualitative Urine Reviewed date:09/28/2024 02:46:50 PM Interpretation: Performing Lab: Notes/Report: [facility] , HCG Qualitative Urine* NEGATIVE NEGATIVE Performing Lab: see note ML - [facility] LB UA RANDOM W or MICROSCOPIC Reviewed date:09/28/2024 02:46:50 PM Interpretation: Performing Lab: Notes/Report: [facility] , Color Urine YELLOW YELLOW Clarity Urine CLEAR CLEAR Specific [place] Urine 1.020 1.005-1.025 pH Urine 7.5 5.0-9.0 Protein Urine TRACE NEG/TRACE mg/dL Glucose Urine UA NEGATIVE NEGATIVE mg/dL Bilirubin Urine NEGATIVE NEGATIVE Ketones Urine TRACE NEGATIVE mg/dL Blood Urine MODERATE NEGATIVE Nitrite Urine NEGATIVE NEGATIVE Urobilinogen Urine 1.0 0.2-1.0 EU/dL Leukocyte Esterase Urine TRACE NEGATIVE WBC Urine 5-10 NONE SEEN #/HPF RBC Urine 10-20 0-2 #/HPF Bacteria Urine SMALL NONE SEEN #/HPF Mucus Urine TRACE NONE SEEN Squamous Epithelial Cell Urine FEW NONE/RARE #/LPF Crystals Seen? Seen None Seen #/HPF Amorphous Sediment Urine FEW Cast Seen? NONE SEEN NONE SEEN #/LPF Urine Culture Indicated YES Performing Lab: see note ML - [facility] LB PROF CHEM 8 (BAS METB) Reviewed date:09/28/2024 02:46:50 PM Interpretation: Performing Lab: Notes/Report: [facility] , Sodium 141 136-145 mmol/L Potassium 4.0 3.5-5.1 mmol/L Chloride 106 98-107 mmol/L Carbon Dioxide 29.4 21.0-32.0 mmol/L Anion Gap 9.6 Glucose 95 74-106 mg/dL Blood Urea Nitrogen 10.0 7.0-18.0 mg/dL Creatinine 0.77 0.55-1.02 mg/dL Estimated GFR ( Grace >60 >=60 mL/min/1.73m 2 Estimated GFR (Non- Essence >60 >=60 mL/min/1.73m 2 BUN Creatinine Ratio 13.0 Calcium 8.8 8.5-10.1 mg/dL Performing Lab: see note ML - [facility] LB CBC AUTO DIFF Reviewed date:09/28/2024 02:46:50 PM Interpretation: Performing Lab: Notes/Report: [facility] , White Blood Count 6.9 4.0-11.0 10 3/uL Red Blood Count 4.53 4.20-5.40 10 6/uL Hemoglobin 11.9 12.0-16.0 g/dL Hematocrit 38.3 36.0-48.0 % Mean Corpuscular Volume 84.5 81.0-99.0 fL Mean Corpuscular Hemoglobin 26.3 26.7-34.0 pg Mean Corpuscular HGB Conc 31.1 29.9-35.2 g/dL Red Cell Distribution Width 13.7 11.0-15.0 % Platelet Count 347 150-450 10 3/uL Mean Platelet Volume 9.2 9.5-13.5 fL Neutrophils Percent Auto 50.8 43.0-75.0 % Lymphocytes Percent Auto 41.9 20.5-60.0 % Monocytes Percent Auto 5.6 1.7-12.0 % Eosinophils Percent Auto 1.0 0.9-7.0 % Basophils Percent Auto 0.3 0.2-2.0 % Immature Granulocytes Pct Auto 0.4 0.0-0.5 % Neutrophils Absolute Auto 3.5 1.4-6.5 10 3/uL Lymphocytes Absolute Auto 2.9 1.2-3.8 10 3/uL Monocytes Absolute Auto 0.4 0.3-0.8 10 3/uL Eosinophils Absolute Auto 0.1 0.0-0.7 10 3/uL Basophils Absolute Auto 0.0 0.0-0.1 10 3/uL Immature Granulocytes Abs Auto 0.03 0.00-0.03 10 3/uL Performing Lab: see note ML - [facility] LB UA RANDOM W or MICROSCOPIC Reviewed date:08/31/2024 08:03:35 PM Interpretation: Performing Lab: Notes/Report: [facility] , Color Urine YELLOW YELLOW Clarity Urine CLEAR CLEAR Specific [place] Urine 1.025 1.005-1.025 pH Urine 6.0 5.0-9.0 Protein Urine NEGATIVE NEG/TRACE mg/dL Glucose Urine UA NEGATIVE NEGATIVE mg/dL Bilirubin Urine NEGATIVE NEGATIVE Ketones Urine NEGATIVE NEGATIVE mg/dL Blood Urine LARGE NEGATIVE Nitrite Urine NEGATIVE NEGATIVE Urobilinogen Urine 1.0 0.2-1.0 EU/dL Leukocyte Esterase Urine TRACE NEGATIVE WBC Urine 0-2 NONE SEEN #/HPF RBC Urine 50-75 0-2 #/HPF Bacteria Urine TRACE NONE SEEN #/HPF Mucus Urine NONE SEEN NONE SEEN Squamous Epithelial Cell Urine RARE NONE/RARE #/LPF Crystals Seen? None Seen None Seen #/HPF Cast Seen? NONE SEEN NONE SEEN #/LPF Urine Culture Indicated NO Performing Lab: see note ML - [facility] LB PROF 14(COMP METB) Reviewed date:08/31/2024 08:03:35 PM Interpretation: Performing Lab: Notes/Report: [facility] , Sodium 141 136-145 mmol/L Potassium 4.4 3.5-5.1 mmol/L Chloride 103 98-107 mmol/L Carbon Dioxide 27.8 21.0-32.0 mmol/L Anion Gap 14.6 Glucose 89 74-106 mg/dL Blood Urea Nitrogen 15.0 7.0-18.0 mg/dL Creatinine 0.81 0.55-1.02 mg/dL Estimated GFR ( Grace >60 >=60 mL/min/1.73m 2 Estimated GFR (Non- Essence >60 >=60 mL/min/1.73m 2 BUN Creatinine Ratio 18.5 Calcium 9.3 8.5-10.1 mg/dL Bilirubin Total 0.5 0.2-1.0 mg/dL Aspartate Amino Transferase 22 15-37 U/L Alanine Aminotransferase 22 14-59 U/L Alkaline Phosphatase 111 46-116 U/L Total Protein 7.7 6.4-8.2 g/dL Albumin Level 3.8 3.4-5.0 g/dL Globulin 3.9 Albumin Globulin Ratio 1.0 Performing Lab: see note ML - [facility] LB LIPASE Reviewed date:08/31/2024 08:03:35 PM Interpretation: Performing Lab: Notes/Report: [facility] , Lipase 58.0 16.0-77.0 U/L Performing Lab: see note ML - [facility] LB CBC AUTO DIFF Reviewed date:08/31/2024 08:03:35 PM Interpretation: Performing Lab: Notes/Report: [facility] , White Blood Count 5.8 4.0-11.0 10 3/uL Red Blood Count 4.26 4.20-5.40 10 6/uL Hemoglobin 11.7 12.0-16.0 g/dL Hematocrit 35.8 36.0-48.0 % Mean Corpuscular Volume 84.0 81.0-99.0 fL Mean Corpuscular Hemoglobin 27.5 26.7-34.0 pg Mean Corpuscular HGB Conc 32.7 29.9-35.2 g/dL Red Cell Distribution Width 13.2 11.0-15.0 % Platelet Count 249 150-450 10 3/uL Mean Platelet Volume 10.1 9.5-13.5 fL Neutrophils Percent Auto 57.6 43.0-75.0 % Lymphocytes Percent Auto 35.6 20.5-60.0 % Monocytes Percent Auto 5.9 1.7-12.0 % Eosinophils Percent Auto 0.5 0.9-7.0 % Basophils Percent Auto 0.2 0.2-2.0 % Immature Granulocytes Pct Auto 0.2 0.0-0.5 % Neutrophils Absolute Auto 3.4 1.4-6.5 10 3/uL Lymphocytes Absolute Auto 2.1 1.2-3.8 10 3/uL Monocytes Absolute Auto 0.3 0.3-0.8 10 3/uL Eosinophils Absolute Auto 0.0 0.0-0.7 10 3/uL Basophils Absolute Auto 0.0 0.0-0.1 10 3/uL Immature Granulocytes Abs Auto 0.01 0.00-0.03 10 3/uL Performing Lab: see note ML - [facility] LB PROF CHEM 8 (BAS METB) Reviewed date:08/17/2024 07:15:36 PM Interpretation: Performing Lab: Notes/Report: [facility] , Sodium 142 136-145 mmol/L Potassium 3.9 3.5-5.1 mmol/L Chloride 107 98-107 mmol/L Carbon Dioxide 28.2 21.0-32.0 mmol/L Anion Gap 10.7 Glucose 85 74-106 mg/dL Blood Urea Nitrogen 10.0 7.0-18.0 mg/dL Creatinine 0.73 0.55-1.02 mg/dL Estimated GFR ( Grace >60 >=60 mL/min/1.73m 2 Estimated GFR (Non- Essence >60 >=60 mL/min/1.73m 2 BUN Creatinine Ratio 13.7 Calcium 8.4 8.5-10.1 mg/dL Performing Lab: see note ML - [facility] LB CBC AUTO DIFF Reviewed date:08/17/2024 07:15:36 PM Interpretation: Performing Lab: Notes/Report: [facility] , White Blood Count 3.3 4.0-11.0 10 3/uL Red Blood Count 3.85 4.20-5.40 10 6/uL Hemoglobin 10.4 12.0-16.0 g/dL Hematocrit 32.8 36.0-48.0 % Mean Corpuscular Volume 85.2 81.0-99.0 fL Mean Corpuscular Hemoglobin 27.0 26.7-34.0 pg Mean Corpuscular HGB Conc 31.7 29.9-35.2 g/dL Red Cell Distribution Width 12.9 11.0-15.0 % Platelet Count 165 150-450 10 3/uL Mean Platelet Volume 9.7 9.5-13.5 fL Neutrophils Percent Auto 40.3 43.0-75.0 % Lymphocytes Percent Auto 50.9 20.5-60.0 % Monocytes Percent Auto 6.4 1.7-12.0 % Eosinophils Percent Auto 2.1 0.9-7.0 % Basophils Percent Auto 0.3 0.2-2.0 % Immature Granulocytes Pct Auto 0.0 0.0-0.5 % Neutrophils Absolute Auto 1.3 1.4-6.5 10 3/uL Lymphocytes Absolute Auto 1.7 1.2-3.8 10 3/uL Monocytes Absolute Auto 0.2 0.3-0.8 10 3/uL Eosinophils Absolute Auto 0.1 0.0-0.7 10 3/uL Basophils Absolute Auto 0.0 0.0-0.1 10 3/uL Immature Granulocytes Abs Auto 0.00 0.00-0.03 10 3/uL Performing Lab: see note ML - [facility] LB Urine Culture, Routine Reviewed date:08/19/2024 03:37:19 PM Interpretation: Performing Lab: Notes/Report: [facility] , Urine Culture, Routine See Below For Report Urine Culture, Routine Urine Culture, Routine Culture shows les s than 10,000 colony forming units of bacteria per Urine Culture, Routine Urine Culture, Routine milliliter of uri ne. This colony count is not generally considered Urine Culture, Routine Urine Culture, Routine to be clinically significant. 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 legend PROF 14(COMP METB) Reviewed date:08/16/2024 08:58:12 PM Interpretation: Performing Lab: Notes/Report: [facility] , Sodium 141 136-145 mmol/L Potassium 5.2 3.5-5.1 mmol/L Chloride 105 98-107 mmol/L Carbon Dioxide 26.9 21.0-32.0 mmol/L Anion Gap 14.3 Glucose 99 74-106 mg/dL Blood Urea Nitrogen 16.0 7.0-18.0 mg/dL Creatinine 0.74 0.55-1.02 mg/dL Estimated GFR ( Grace >60 >=60 mL/min/1.73m 2 Estimated GFR (Non- Essence >60 >=60 mL/min/1.73m 2 BUN Creatinine Ratio 21.6 Calcium 8.8 8.5-10.1 mg/dL Bilirubin Total 0.5 0.2-1.0 mg/dL Aspartate Amino Transferase 34 15-37 U/L Alanine Aminotransferase 21 14-59 U/L Alkaline Phosphatase 118 46-116 U/L Total Protein 7.6 6.4-8.2 g/dL Albumin Level 3.7 3.4-5.0 g/dL Globulin 3.9 Albumin Globulin Ratio 0.9 Performing Lab: see note ML - [facility] LB URINE MICROSCOPIC ONLY Reviewed date:08/10/2024 09:59:46 PM Interpretation: Performing Lab: Notes/Report: [facility] , WBC Urine 0-2 NONE SEEN #/HPF RBC Urine 50-75 0-2 #/HPF Bacteria Urine TRACE NONE SEEN #/HPF Mucus Urine NONE SEEN NONE SEEN Squamous Epithelial Cell Urine FEW NONE/RARE #/LPF Crystals Seen? None Seen None Seen #/HPF Cast Seen? NONE SEEN NONE SEEN #/LPF Urine Culture Indicated NO Performing Lab: see note ML - [facility] LB UA (CLEAN or CATCH) DRYING ROOM ATTENDANT or M ICRO IF IND. Reviewed date:08/10/2024 09:59:46 PM Interpretation: Performing Lab: Notes/Report: [facility] , Color Urine YELLOW YELLOW Clarity Urine CLEAR CLEAR Specific [place] Urine 1.025 1.005-1.025 pH Urine 6.0 5.0-9.0 Protein Urine NEGATIVE NEG/TRACE mg/dL Glucose Urine UA NEGATIVE NEGATIVE mg/dL Bilirubin Urine NEGATIVE NEGATIVE Ketones Urine TRACE NEGATIVE mg/dL Blood Urine LARGE NEGATIVE Nitrite Urine NEGATIVE NEGATIVE Urobilinogen Urine 0.2 0.2-1.0 EU/dL Leukocyte Esterase Urine TRACE NEGATIVE Urine Microscopic Indicated YES Performing Lab: see note ML - [facility] LB PROF 14(COMP METB) Reviewed date:08/10/2024 09:59:46 PM Interpretation: Performing Lab: Notes/Report: [facility] , Sodium 144 136-145 mmol/L Potassium 4.0 3.5-5.1 mmol/L Chloride 105 98-107 mmol/L Carbon Dioxide 28.1 21.0-32.0 mmol/L Anion Gap 14.9 Glucose 94 74-106 mg/dL Blood Urea Nitrogen 11.0 7.0-18.0 mg/dL Creatinine 0.79 0.55-1.02 mg/dL Estimated GFR ( Grace >60 >=60 mL/min/1.73m 2 Estimated GFR (Non- Essence >60 >=60 mL/min/1.73m 2 BUN Creatinine Ratio 13.9 Calcium 8.9 8.5-10.1 mg/dL Bilirubin Total 0.3 0.2-1.0 mg/dL Aspartate Amino Transferase 17 15-37 U/L Alanine Aminotransferase 18 14-59 U/L Alkaline Phosphatase 120 46-116 U/L Total Protein 7.6 6.4-8.2 g/dL Albumin Level 3.8 3.4-5.0 g/dL Globulin 3.8 Albumin Globulin Ratio 1.0 Performing Lab: see note ML - [facility] LB LIPASE Reviewed date:08/10/2024 09:59:46 PM Interpretation: Performing Lab: Notes/Report: [facility] , Lipase 68.0 16.0-77.0 U/L Performing Lab: see note ML - [facility] LB LACTATE or LACTIC ACID Reviewed date:08/10/2024 09:59:46 PM Interpretation: Performing Lab: Notes/Report: [facility] , Lactate/Lactic Acid 1.9 0.4-2.0 mmol/L Performing Lab: see note ML - [facility] LB CBC AUTO DIFF Reviewed date:08/10/2024 09:59:46 PM Interpretation: Performing Lab: Notes/Report: [facility] , White Blood Count 5.2 4.0-11.0 10 3/uL Red Blood Count 4.47 4.20-5.40 10 6/uL Hemoglobin 12.2 12.0-16.0 g/dL Hematocrit 38.5 36.0-48.0 % Mean Corpuscular Volume 86.1 81.0-99.0 fL Mean Corpuscular Hemoglobin 27.3 26.7-34.0 pg Mean Corpuscular HGB Conc 31.7 29.9-35.2 g/dL Red Cell Distribution Width 13.1 11.0-15.0 % Platelet Count 275 150-450 10 3/uL Mean Platelet Volume 9.5 9.5-13.5 fL Neutrophils Percent Auto 52.9 43.0-75.0 % Lymphocytes Percent Auto 39.2 20.5-60.0 % Monocytes Percent Auto 6.0 1.7-12.0 % Eosinophils Percent Auto 1.3 0.9-7.0 % Basophils Percent Auto 0.4 0.2-2.0 % Immature Granulocytes Pct Auto 0.2 0.0-0.5 % Neutrophils Absolute Auto 2.8 1.4-6.5 10 3/uL Lymphocytes Absolute Auto 2.0 1.2-3.8 10 3/uL Monocytes Absolute Auto 0.3 0.3-0.8 10 3/uL Eosinophils Absolute Auto 0.1 0.0-0.7 10 3/uL Basophils Absolute Auto 0.0 0.0-0.1 10 3/uL Immature Granulocytes Abs Auto 0.01 0.00-0.03 10 3/uL Performing Lab: see note ML - [facility] LB LIVER PROFILE Reviewed date:07/06/2024 01:04:11 PM Interpretation: Performing Lab: Notes/Report: [facility] , Bilirubin Total 0.4 0.2-1.0 mg/dL Bilirubin Direct 0.1 0.0-0.2 mg/dL Aspartate Amino Transferase 11 15-37 U/L Alanine Aminotransferase 18 14-59 U/L Alkaline Phosphatase 105 46-116 U/L Total Protein 7.6 6.4-8.2 g/dL Albumin Level 4.0 3.4-5.0 g/dL Globulin 3.6 Albumin Globulin Ratio 1.1 Performing Lab: see note ML - [facility] LB LIPASE Reviewed date:07/06/2024 01:04:11 PM Interpretation: Performing Lab: Notes/Report: [facility] , Lipase 55.0 16.0-77.0 U/L Performing Lab: see note ML - [facility] LB AMYLASE Reviewed date:07/06/2024 01:04:11 PM Interpretation: Performing Lab: Notes/Report: [facility] , Amylase 58 25-115 U/L Performing Lab: see note - [facility] LB PROF 14(COMP METB) Reviewed date:06/21/2024 09:29:41 PM Interpretation: Performing Lab: Notes/Report: [facility] , Sodium 141 136-145 mmol/L Potassium 4.5 3.5-5.1 mmol/L SPECIMEN SLIG HTLY HEMOLYZED Chloride 105 98-107 mmol/L Carbon Dioxide 27.6 21.0-32.0 mmol/L Anion Gap 12.9 Glucose 91 74-106 mg/dL Blood Urea Nitrogen 10.0 7.0-18.0 mg/dL Creatinine 0.66 0.55-1.02 mg/dL Estimated GFR ( Grace >60 >=60 Estimated GFR (Non- Essence >60 >=60 BUN Creatinine Ratio 15.2 Calcium 8.9 8.5-10.1 mg/dL Bilirubin Total 0.5 0.2-1.0 mg/dL Aspartate Amino Transferase 29 15-37 U/L Alanine Aminotransferase 29 14-59 U/L Alkaline Phosphatase 98 46-116 U/L Total Protein 7.5 6.4-8.2 g/dL Albumin Level 3.8 3.4-5.0 g/dL Globulin 3.7 Albumin Globulin Ratio 1.0 Performing Lab: see note ML - [facility] LB CBC AUTO DIFF Reviewed date:06/21/2024 09:29:41 PM Interpretation: Performing Lab: Notes/Report: [facility] , White Blood Count 6.2 4.0-11.0 10 3/uL Red Blood Count 4.51 4.20-5.40 10 6/uL Hemoglobin 12.5 12.0-16.0 g/dL Hematocrit 38.9 36.0-48.0 % Mean Corpuscular Volume 86.3 81.0-99.0 fL Mean Corpuscular Hemoglobin 27.7 26.7-34.0 pg Mean Corpuscular HGB Conc 32.1 29.9-35.2 g/dL Red Cell Distribution Width 13.2 11.0-15.0 % Platelet Count 255 150-450 10 3/uL Mean Platelet Volume 9.5 9.5-13.5 fL Neutrophils Percent Auto 55.9 43.0-75.0 % Lymphocytes Percent Auto 34.0 20.5-60.0 % Monocytes Percent Auto 8.3 1.7-12.0 % Eosinophils Percent Auto 1.1 0.9-7.0 % Basophils Percent Auto 0.2 0.2-2.0 % Immature Granulocytes Pct Auto 0.5 0.0-0.5 % Neutrophils Absolute Auto 3.5 1.4-6.5 10 3/uL Lymphocytes Absolute Auto 2.1 1.2-3.8 10 3/uL Monocytes Absolute Auto 0.5 0.3-0.8 10 3/uL Eosinophils Absolute Auto 0.1 0.0-0.7 10 3/uL Basophils Absolute Auto 0.0 0.0-0.1 10 3/uL Immature Granulocytes Abs Auto 0.03 0.00-0.03 10 3/uL Performing Lab: see note ML - [facility] LIPASE Reviewed date:03/24/2024 08:31:16 AM Interpretation: Performing Lab: Notes/Report: [facility] , Lipase 35.0 16.0-77.0 U/L Performing Lab: see note ML - [facility] URINE MICROSCOPIC ONLY Reviewed date:03/22/2024 06:05:54 PM Interpretation: Performing Lab: Notes/Report: [facility] , WBC Urine 2-5 NONE SEEN #/HPF RBC Urine >100 0-2 #/HPF Bacteria Urine TRACE NONE SEEN #/HPF Mucus Urine NONE SEEN NONE SEEN Squamous Epithelial Cell Urine MODERATE NONE/RARE #/LPF Crystals Seen? None Seen None Seen #/HPF Cast Seen? NONE SEEN NONE SEEN #/LPF Urine Culture Indicated YES Performing Lab: see note ML - [facility] LB LIPASE Reviewed date:03/22/2024 06:05:54 PM Interpretation: Performing Lab: Notes/Report: [facility] , Lipase 47.0 16.0-77.0 U/L Performing Lab: see note ML - [facility] LB LACTATE or LACTIC ACID Reviewed date:03/22/2024 06:05:54 PM Interpretation: Performing Lab: Notes/Report: [facility] , Lactate/Lactic Acid 0.8 0.4-2.0 mmol/L Performing Lab: see note ML - [facility] LB PROF 14(COMP METB) Reviewed date:06/20/2024 10:16:56 PM Interpretation: Performing Lab: Notes/Report: [facility] , Sodium 141 136-145 mmol/L Potassium 3.9 3.5-5.1 mmol/L Chloride 102 98-107 mmol/L Carbon Dioxide 30.4 21.0-32.0 mmol/L Anion Gap 12.5 Glucose 136 74-106 mg/dL Blood Urea Nitrogen 16.0 7.0-18.0 mg/dL Creatinine 0.83 0.55-1.02 mg/dL Estimated GFR ( Grace >60 >=60 Estimated GFR (Non- Essence >60 >=60 BUN Creatinine Ratio 19.3 Calcium 9.1 8.5-10.1 mg/dL Bilirubin Total 0.4 0.2-1.0 mg/dL Aspartate Amino Transferase 20 15-37 U/L Alanine Aminotransferase 34 14-59 U/L Alkaline Phosphatase 100 46-116 U/L Total Protein 7.5 6.4-8.2 g/dL Albumin Level 3.8 3.4-5.0 g/dL Globulin 3.7 Albumin Globulin Ratio 1.0 Performing Lab: see note ML - [facility] LB LIPASE Reviewed date:06/20/2024 10:16:56 PM Interpretation: Performing Lab: Notes/Report: [facility] , Lipase 76.0 16.0-77.0 U/L Performing Lab: see note ML - [facility] LB CBC AUTO DIFF Reviewed date:06/20/2024 10:16:56 PM Interpretation: Performing Lab: Notes/Report: [facility] , White Blood Count 7.2 4.0-11.0 10 3/uL Red Blood Count 4.66 4.20-5.40 10 6/uL Hemoglobin 12.9 12.0-16.0 g/dL Hematocrit 41.1 36.0-48.0 % Mean Corpuscular Volume 88.2 81.0-99.0 fL Mean Corpuscular Hemoglobin 27.7 26.7-34.0 pg Mean Corpuscular HGB Conc 31.4 29.9-35.2 g/dL Red Cell Distribution Width 13.3 11.0-15.0 % Platelet Count 274 150-450 10 3/uL Mean Platelet Volume 9.1 9.5-13.5 fL Neutrophils Percent Auto 67.4 43.0-75.0 % Lymphocytes Percent Auto 24.9 20.5-60.0 % Monocytes Percent Auto 6.4 1.7-12.0 % Eosinophils Percent Auto 0.6 0.9-7.0 % Basophils Percent Auto 0.1 0.2-2.0 % Immature Granulocytes Pct Auto 0.6 0.0-0.5 % Neutrophils Absolute Auto 4.9 1.4-6.5 10 3/uL Lymphocytes Absolute Auto 1.8 1.2-3.8 10 3/uL Monocytes Absolute Auto 0.5 0.3-0.8 10 3/uL Eosinophils Absolute Auto 0.0 0.0-0.7 10 3/uL Basophils Absolute Auto 0.0 0.0-0.1 10 3/uL Immature Granulocytes Abs Auto 0.04 0.00-0.03 10 3/uL Performing Lab: see note ML - [facility] LB AMYLASE Reviewed date:06/20/2024 10:16:56 PM Interpretation: Performing Lab: Notes/Report: [facility] , Amylase 62 25-115 U/L Performing Lab: see note ML - [facility] LB Reason For Referral Diagnosis 1 Vertigo (R42) Referral Organization [facility] Referring Provider First Name Malachi Referring Provider Last Name paco Referring Provider Speciality Family Med icine Referred Provider TB, Physical Therap y Referred Provider Specialty Physical Med icine and Rehabilitation Referral Priority Routine Diagnosis 1 Low back derangement syndrome (M53.86) Referral Organization [facility] Referring Provider First Name Malachi Referring Provider Last Name [facility] Referred Provider TB, Physical Therap y Referred Provider Specialty Physical Med icine and Rehabilitation Referral Priority Routine Medications Medication SIG (Take, Route, Frequency, Duration) Notes Start Date End Date Status Triamcinolone Acetonide 0.1 % 1 application Externally Twice a day for 30 11/22/2023 Active Wegovy 0.25 MG/0.5ML 0.25 mg Subcutaneou s weely for 30 days 12/06/2024 Active Adipex-P 37.5 MG 1 tablet before maria eugenia kfast Orally Once a day 03/12/2025 Active Dicyclomine HCl 20 MG 1 tablet Orally QI D for 30 days 10/23/2024 Active Ferrous Sulfate 325 (65 Fe) MG 1 tablet Orally Once a day Active Flomax 0.4 MG 1 capsule Orally Onc e a day for 30 days 01/12/2025 Active HYDROcodone-Acetaminophen 5-325 MG 1 tablet as needed Orally BID as needed ([facility]) PRN Active Ondansetron 4 MG 1 tablet on the tong ue and allow to dissolve Orally qid 03/12/2025 Active Hyoscyamine Sulfate 0.125 MG 1-2 tabs SL SL every 4 hrs PRN abd pain 09/26/2024 Active Cephalexin 500 MG 2 tabs Orally bid fo r 10 days 03/12/2025 Active Hyoscyamine Sulfate 0.125 MG 1-2 tabs SL SL every 4 hrs PRN abd pain 01/12/2025 Active Reglan 10 MG 1 tablet as needed O rally every 4 hrs for 30 days 01/20/2023 Active tiZANidine HCl 4 MG 2 capsules Orally Q HS for 30 days Active Topamax 50 MG 1 tablet Orally Once a day for 30 days 09/13/2023 Active Calcium 600 MG 2 tablet with meals Orally Once a day Active Carafate 1 GM 1 tablet on an empty stomach Orally QID Active CeleXA 10 MG 1 tablet Orally Once a day for 30 days 12/01/2024 Active Cyanocobalamin 1000 MCG/ML 1 mL Injectio n once a month Active Meclizine HCl 25 MG 1 tablet as needed O rally every 12 hrs 05/04/2024 Active One A Day Women 50 Plus - as directed Orally Active Ozempic (0.25 or 0.5 MG/DOSE) 2 MG/3ML 0.25 mg Subcutaneous weekly for 28 days 12/01/2024 Active Pantoprazole Sodium 40 MG Take 2 tablets by mouth once daily. for 90 Active Pregabalin 50 MG 1 capsule Orally BID Active Premarin 0.625 MG/GM 0.625 Vaginal Once a day 06/12 Active Promethazine HCl 25 MG 1 suppository as needed Rectal every 6 hrs for 2 days 12/13/2024 Active Promethazine HCl 25 MG 1 tablet as neede d Orally q6h for 30 days PRN 08/13/2023 Active Albuterol Sulfate (2.5 MG/3ML) 0.083% 3 mL as needed Inhalation every 6 hrs 12/03/2023 Active Amitriptyline HCl 100 MG 1 tablet Orally at bedtime for 30 days Active Imitrex 100 MG 1 tablet at least 2 hours between doses as needed Orally Twice a day for 10 PRN 08/17/2023 Active Lisinopril 10 MG 1 tablet Orally Once a day for 30 days 12/01/2024 Active Social History Tobacco Use: Social History Observation Description Date Details (start date - stop date) Former Smoker 10/11/1997 - 10/11/2018 Tobacco Use/Smoking Question Answer Notes Patient is a former smoker When did you start smoking? 10/11/1997 When did you stop smoking? 10/11/2018 How long has it been since you last smoked? 1-5 years Alcohol Screen (Audit-C) Question Answer Notes Did you have a drink containing alcohol in the p ast year? No Points 0 Interpretation Negative AUDIT-C (Standard) Question Answer Notes Did you have a drink containing alcohol in the p ast year? No Points 0 Interpretation Negative Problems Problem Type SNOMED Code ICD Code Onset Dates Problem Status W/U Status Risk Notes Problem 57534441 Iron deficiency anemia, unspecified (D50.9) Active confirmed Problem Dehydration (04014064) Dehydration (E86.0) Active confirmed Problem Otitis externa (2262470) Unspecified otitis externa, unspecified ear (H60.90) Active confirmed Problem Marginal perforation of tympanic membrane (62780443) Other marginal perforations of tympanic membrane, left ear (H72.2X2) Active confirmed Problem Acute frontal sinusitis (51235619) Acute recurrent frontal sinusitis (J01.11) Active confirmed Problem Contracture of ankle joint (disorder) (378101288) Contracture, unspecified ankle (M24.573) Active confirmed Problem Cystitis (77509914) Other cystit is without hematuria (N30.80) Active confirmed Problem Sprain of lateral collateral ligament of knee (50681876) Sprain of lateral collateral ligament of left knee, initial encounter (S83.422A) Active confirmed Problem Adverse reaction caused by drug (disorder) (59133481) Adverse effect of unspecified drugs, medicaments and biological substances, initial encounter (T50.905A) Active confirmed Problem Exposure to communicable disease (000781457) Contact with and (suspected) exposure to other viral communicable diseases (Z20.828) Active confirmed Problem History of urinary disease (704591414) Personal history of other diseases of urinary system (Z87.448) Active confirmed Problem Hypertension (63007011) Hypertension (I10) Active confirmed Problem Osteoarthritis (412882186) Osteoarthritis (M19.90) Active confirmed Problem Gastroesophageal reflux disease (616472238) GERD (gastroesophageal reflux disease) (K21.9) Active confirmed Problem Vertigo (619464339) Vertigo (R42) Active confir med Problem Insomnia (961533820) Insomnia (G47.00) Active confirmed Problem Hiatal hernia (38209772) Hiatal hernia (K44.9) Active confirmed Problem Knee pain (8859548503) Knee pain (M25.569) Active confirmed Problem Discharge from right nipple (38720134073767936) Discharge from right nipple (N64.52) Active confirmed Problem Migraine (94934327) Migraine (G43.909) Active c onfirmed Problem Colitis (66863655) Colitis (K52.9) Active confi rmed Problem Vaginitis (11699835) Vaginitis (N76.0) Active confirmed Problem Nephrolithiasis (77460010) Nephrolithiasis (N20.0) Active confirmed Problem Urticaria (875013443) Urticaria (L50.9) Active confirmed Problem Well adult (422312539) Well adult (Z00.00) Active confirmed Problem Acute kidney injury (25770728) Acute kidney injury (N17.9) Active confirmed Problem Hypoglycemia (792684351) Hypoglycemia (E16.2) Active confirmed Problem Pre-surgery evaluation (062233948) Pre-op exam (Z01.818) Active confirmed Problem Pain in limb (24434645) Arm pain, left (M79.602) Active confirmed Problem Diverticulitis (55151428) Diverticulitis (K57.92) Active confirmed Problem Otitis media of left ear (2007621193377755) Otitis media of left ear (H66.92) Active confirmed Problem Plantar fasciitis (930950217) Plantar fasciitis (M72.2) Active confirmed Problem Pyelonephritis (57521226) Pyelonephritis (N12) Active confirmed Problem Acute gastric ulcer (22470877) Acute gastric ulcer (K25.3) Active confirmed Problem Seasonal allergic rhinitis (731374869) Allergic rhinitis, seasonal (J30.2) Active confirmed Problem Iron deficiency anemia (23967313) Anemia, iron deficiency (D50.9) Active confirmed Problem Common migraine (84407569) Common migraine (G43.009) Active confirmed Problem Microcytic anemia (271312743) Microcytic anemia (D50.9) Active confirmed Problem Diverticular disease (069754439) Diverticular disease (K57.90) Active confirmed Problem 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 Problem Vertebral artery occlusion, 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) Active confirmed Problem Vaginal dryness (40162648) Vaginal dryness (N89.8) Active confirmed Problem Peripheral vertigo (69687249) Vertigo, peripheral (H81.399) Active confirmed Problem Cobalamin deficiency (846894718) Cobalamin deficiency (E53.8) Active confirmed Problem Essential hypertension (91755691) BP (high blood pressure) (I10) Active confirmed Problem Ovarian cyst (11408385) Cyst, ovarian (N83.209) Active confirmed Problem Disorder of sacrum (80547032) Low back derangement syndrome (M53.86) Active confirmed Problem Gastrojejunal ulcer (95726159) Gastrojejunal ulcer (K28.9) Active confirmed Problem 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 Problem Disease caused by Severe acute respiratory syndrome coronavirus 2 (disorder) (821576920) COVID-19 virus infection (U07.1) Active confirmed Problem Low back pain (971541675) Low back pain, unspecified (M54.50) Active confirmed Vital Signs Heart Rate 100 /min 03/22/2024 Temperature 98.5 degrees Fahrenheit 08/16/2024 Respiratory Rate 16 /min 03/22/2024 Blood pressure diastolic 82 mm Hg 03/12/2025 Oximetry 99 % 03/22/2024 Height 66 in 03/12/2025 Blood pressure systolic 116 mm Hg 03/12/2025 Weight 175.4 lbs 03/12/2025 BMI 28.31 kg/m2 03/12/2025 Encounters Encounter Location Date Provider Diagnosis [facility] [address] [place] [address] 06/14/2024 Malachi Hoy Acute bronchitis, unspecified organism J20.9 [facility] [address] [place] [address] 07/05/2024 Malachi Hoy Dehydration E86.0 ; Diverticulitis K57.92 and Vertigo R42 [facility] [address] [place] [address] 08/31/2024 Malachi Hoy Gastroenteritis K52. 9 and Flank pain R10.9 [facility] [address] [place] [address] 10/23/2024 Malachi Hoy Gastroenteritis K52. 9 [facility] [address] [place] [address] 10/26/2024 Malachi Hoy Gastroenteritis K52. 9 and Urinary frequency R35.0 [facility] [address] [place] [address] 12/07/2024 Malachi Hoy Nephrolithiasis N20. 0 and Well adult Z00.00 [facility] [address] [place] [address] 03/12/2025 Malachi Hoy UTI (urinary tract infection), uncomplicated N39.0 ; Dysuria R30.0 and Hypertension I10 [facility] [address] [place] [address] 09/27/2024 Malachi Hoy Nausea & vomiting R1 1.[address] [facility] [address] [place] [address] 12/21/2024 Malachi Hoy Dehydration E86.0 an d Nephrolithiasis N20.0 [facility] [address] [place] [address] 01/12/2025 Malachi Hoy Nephrolithiasis N20. 0 [facility] [address] [place] [address] 01/16/2025 Malachi Hoy Acute kidney injury N17.9 [facility] [address] [place] [address] 09/05/2024 Malachi Hoy Low back derangement syndrome M53.86 [facility] [address] [place] [address] 09/19/2024 Malachi Hoy Acute bronchitis, unspecified organism J20.9 [facility] [address] [place] [address] 09/26/2024 Malachi Hoy Gastroenteritis K52. 9 [facility] [address] [place] [address] 12/01/2024 Malachi Hoy Hypertension I10 ; A cute gastric ulcer K25.3 ; Hypoglycemia E16.2 ; GERD (gastroesophageal reflux disease) K21.9 and Hyperglycemia R73.9 [facility] [address] [place] [address] 12/11/2024 Malachi Hoy Nephrolithiasis N20. 0 [facility] [address] [place] [address] 12/13/2024 Malachi Hoy Dehydration E86.0 [facility] [address] [place] [address] 06/20/2024 Malachi Hoy Dehydration E86.0 [facility] [address] [place] [address] 07/13/2024 Malachi Hoy Colitis K52.9 [facility] [address] [place] [address] 08/09/2024 Kavya Omar Diverticulitis K57.9 2 [facility] [address] [place] [address] 08/14/2024 Malachi Hoy Gastroenteritis K52. 9 and Diverticulitis K57.92 [facility] [address] [place] [address] 08/16/2024 Malachi Hoy Gastroenteritis K52. 9 [facility] [address] [place] [address] 08/23/2024 Malachi Hoy Dehydration E86.0 an d Vaginitis N76.0 [facility] [address] [place] [address] 03/22/2024 ARLETH HOY Kidney stone N20.0 [facility] [address] [place] [address] 05/04/2024 Malachi Hoy Otitis media of left ear H66.92 [facility] [address] [facility] [place] [address] 05/10/2024 Malachi Montanezy Acute non-recurrent sinusitis, unspecified location J01.90 ; Nasal congestion R09.81 and Vertigo, peripheral H81.399 [facility] [address] [place] [address] 06/05/2024 Malachi Hoy Vertigo R42 [facility] [address] [facility] [place] [address] 05/17/2024 Malachi Hoy Dehydration E86.0 ; Hypertension I10 and Vertigo, peripheral H81.399 [facility] [address] [facility] [place] [address] 01/16/2025 Malachi Montanezy [facility] [address] [facility] [address] 02/05/2025 Malachi Hoy Dehydration E86.0 [facility] [address] [facility] [place] [address] 09/27/2024 Malachi Ledesma [facility] [address] [facility] [place] [address] 12/05/2024 Malachi Montanezy [facility] [address] [facility] [address] 12/08/2024 Malachi [facility] [address] [facility] [place] [address] 12/13/2024 Malachi Ledesma [facility] [address] [facility] [place] [address] 12/14/2024 Malachi Ledesma [facility] [address] [facility] [place] [address] 01/05/2025 Malachi Ledesma [facility] [address] [facility] [place] [address] 07/06/2024 Malachi paco [facility] [address] [facility] [place] [address] 07/07/2024 Malachi paco [facility] [address] [facility] [place] [address] 08/17/2024 Malachi Hoy [facility] [address] [place] [address] 08/31/2024 Malachi Hoy Otitis media of left ear H66.92 [facility] [address] [facility] [place] [address] 09/14/2024 Malachi Hoy Migraine G43.909 [facility] [address] [place] [address] 09/22/2024 Malachi Hoy Dehydration E86.0 [facility] [address] [facility] [place] [address] 03/22/2024 ARLETH HOY [facility] [address] [facility] [place] [address] 03/29/2024 ARLETH HOY Mass of neck R22.1 [facility] [address] [facility] [place] [address] 04/09/2024 Malachi Hoy [facility] [address] [place] [address] 05/17/2024 Malachi Hoy Vertebral artery occlusion, 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 [facility] [address] [facility] [place] [address] 06/09/2024 Malachi Hoy Fatigue R53.83 and Migraine G43.909 [facility] [address] [place] [address] 06/20/2024 Malachi Hoy Assessments Encounter Date Diagnosis (ICD Code) Assessment Notes Treatment Notes Treatment Clinical Notes Section Notes 03/22/2024 Kidney stone (ICD-10 - N20.0) admit to observation 05/04/2024 Otitis media of left ear (ICD-10 - H66.92) 05/10/2024 Acute non-recurrent sinusitis, unspecified location (ICD-10 - J01.90) Rest and drink more liquids, especially water. You may use a humidifier or vaporizer to help keep the drainage moist. Cyis-axs-oijtpoq Nasal Saline may help the stuffy and runny nose. Use Ibuprofen and or Tylenol as needed for fever, chills, body aches or pain. Children 5 years old should not be given wuph-tfn-znxgtbf cough and cold medications such as guaifenesin and dextromethorphan. If you're over age 5, you may try sfdm-ouv-uwjahyr cold medications such as guaifenesin and dextromethorphan, or multi-symptom cold reliever such as Dayquil to help reduce the symptoms. Antibiotics have been prescribed. You should take these until completed and follow the directions. Antibiotics can sometimes cause upset stomach, and in rare cases, serious allergic reactions or serious gastrointestinal problems. If you start having severe abdominal pain, severe vomiting, or bloody diarrhea, you should be reevaluated by your physician or urgent care immediately. Follow up with your Primary Care Provider or return to clinic if symptoms do not improve within 3-5 days 05/10/2024 Nasal congestion (ICD-10 - R09.81) 07/13/2024 Colitis (ICD-10 - K52.9) discussed diet recommendateion 08/09/2024 Diverticulitis (ICD-10 - K57.92) push fluids, electrolytes ER if needed 08/14/2024 Gastroenteritis (ICD-10 - K52.9) Get plenty of rest. Stay hydrated by sucking on ice chips or taking small sips of water. You can also try drinking clear soda, clear broths or noncaffeinated sports drinks. Stop eating solid foods for a few hours to let your stomach settle. East back into eating by eating bland, qzkv-of-hmkzpc foods like crackers, toast, gelatin, bananas, rice and chicken. Try to avoid foods/substances including dairy products, caffeine, alcohol, nicotine and fatty or highly seasoned foods. Medications such as ibuprofen or tylenol can make your stomach more upset, so use sparingly if at all. Also avoid qyfg-vtn-whntfmx anti-diarrheal medications because it can make it harder for your body to eliminate the virus. 08/14/2024 Diverticulitis (ICD-10 - K57.92) 08/16/2024 Gastroenteritis (ICD-10 - K52.9) Get plenty of rest. Stay hydrated by sucking on ice chips or taking small sips of water. You can also try drinking clear soda, clear broths or noncaffeinated sports drinks. Stop eating solid foods for a few hours to let your stomach settle. East back into eating by eating bland, exzr-ql-eyruqz foods like crackers, toast, gelatin, bananas, rice and chicken. Try to avoid foods/substances including dairy products, caffeine, alcohol, nicotine and fatty or highly seasoned foods. Medications such as ibuprofen or tylenol can make your stomach more upset, so use sparingly if at all. Also avoid lwyh-jmr-fgkpjbp anti-diarrheal medications because it can make it harder for your body to eliminate the virus. 08/23/2024 Dehydration (ICD-10 - E86.0) 08/23/2024 Vaginitis (ICD-10 - N76.0) 08/31/2024 Gastroenteritis (ICD-10 - K52.9) pomethazine here if not better - ER 08/31/2024 Flank pain (ICD-10 - R10.9) 09/05/2024 Low back derangement syndrome (ICD-10 - M53.86) 09/19/2024 Acute bronchitis, unspecified organism (ICD-10 - J20.9) Rest and drink more liquids, especially water. You may use a humidifier or vaporizer to help keep the drainage moist. Rgie-klb-dejngak Nasal Saline may help the stuffy and runny nose. Use Ibuprofen and or Tylenol as needed for fever, chills, body aches or pain. Children 5 years old should not be given bpbq-bla-mbzirkz cough and cold medications such as guaifenesin and dextromethorphan. If you're over age 5, you may try hauy-zfj-fnvfhta cold medications such as guaifenesin and dextromethorphan, or multi-symptom cold reliever such as Dayquil to help reduce the symptoms. Antibiotics have been prescribed. You should take these until completed and follow the directions. Antibiotics can sometimes cause upset stomach, and in rare cases, serious allergic reactions or serious gastrointestinal problems. If you start having severe abdominal pain, severe vomiting, or bloody diarrhea, you should be reevaluated by your physician or urgent care immediately. Follow up with your Primary Care Provider or return to clinic if symptoms do not improve within 3-5 days. If you develop severe symptoms such as shortness of breath, repeated vomiting, coughing up blood, or chest pain you should go to the emergency room or call 911 09/26/2024 Gastroenteritis (ICD-10 - K52.9) Get plenty of rest. Stay hydrated by sucking on ice chips or taking small sips of water. You can also try drinking clear soda, clear broths or noncaffeinated sports drinks. Stop eating solid foods for a few hours to let your stomach settle. East back into eating by eating bland, wsbu-jh-vivlyr foods like crackers, toast, gelatin, bananas, rice and chicken. Try to avoid foods/substances including dairy products, caffeine, alcohol, nicotine and fatty or highly seasoned foods. Medications such as ibuprofen or tylenol can make your stomach more upset, so use sparingly if at all. Also avoid emgk-jvk-oaqekvj anti-diarrheal medications because it can make it harder for your body to eliminate the virus. 09/27/2024 Nausea & vomiting (ICD-10 - R11.2) 10/23/2024 Gastroenteritis (ICD-10 - K52.9) Get plenty of rest. Stay hydrated by sucking on ice chips or taking small sips of water. You can also try drinking clear soda, clear broths or noncaffeinated sports drinks. Stop eating solid foods for a few hours to let your stomach settle. East back into eating by eating bland, peag-jt-gosqjc foods like crackers, toast, gelatin, bananas, rice and chicken. Try to avoid foods/substances including dairy products, caffeine, alcohol, nicotine and fatty or highly seasoned foods. Medications such as ibuprofen or tylenol can make your stomach more upset, so use sparingly if at all. Also avoid hnxu-fgv-jrcspsq anti-diarrheal medications because it can make it harder for your body to eliminate the virus. 10/26/2024 Gastroenteritis (ICD-10 - K52.9) Get plenty of rest. Stay hydrated by sucking on ice chips or taking small sips of water. You can also try drinking clear soda, clear broths or noncaffeinated sports drinks. Stop eating solid foods for a few hours to let your stomach settle. East back into eating by eating bland, okrk-ra-abfvpw foods like crackers, toast, gelatin, bananas, rice and chicken. Try to avoid foods/substances including dairy products, caffeine, alcohol, nicotine and fatty or highly seasoned foods. Medications such as ibuprofen or tylenol can make your stomach more upset, so use sparingly if at all. Also avoid eegb-cat-crqxxnn anti-diarrheal medications because it can make it harder for your body to eliminate the virus. 10/26/2024 Urinary frequency (ICD-10 - R35.0) 12/01/2024 Hypertension (ICD-10 - I10) 12/01/2024 Acute gastric ulcer (ICD-10 - K25.3) 05/17/2024 Dehydration (ICD-10 - E86.0) may neeed IV fluids 05/17/2024 Hypertension (ICD-10 - I10) stable herer 06/05/2024 Vertigo (ICD-10 - R42) need MRA - PT concerned with halpike meneuvers not working - could be due to circuation in post brain 06/14/2024 Acute bronchitis, unspecified organism (ICD-10 - J20.9) Rest and drink more liquids, especially water. You may use a humidifier or vaporizer to help keep the drainage moist. Klbd-xda-ocagpil Nasal Saline may help the stuffy and runny nose. Use Ibuprofen and or Tylenol as needed for fever, chills, body aches or pain. Children 5 years old should not be given wucf-wbo-jfroeec cough and cold medications such as guaifenesin and dextromethorphan. If you're over age 5, you may try rnuf-bce-hmshvgf cold medications such as guaifenesin and dextromethorphan, or multi-symptom cold reliever such as Dayquil to help reduce the symptoms. Antibiotics have been prescribed. You should take these until completed and follow the directions. Antibiotics can sometimes cause upset stomach, and in rare cases, serious allergic reactions or serious gastrointestinal problems. If you start having severe abdominal pain, severe vomiting, or bloody diarrhea, you should be reevaluated by your physician or urgent care immediately. Follow up with your Primary Care Provider or return to clinic if symptoms do not improve within 3-5 days. If you develop severe symptoms such as shortness of breath, repeated vomiting, coughing up blood, or chest pain you should go to the emergency room or call 911 06/20/2024 Dehydration (ICD-10 - E86.0) sending over to [facility] for fluids and labs 07/05/2024 Dehydration (ICD-10 - E86.0) 07/05/2024 Diverticulitis (ICD-10 - K57.92) 12/07/2024 Nephrolithiasis (ICD-10 - N20.0) 12/07/2024 Well adult (ICD-10 - Z00.00) 12/11/2024 Nephrolithiasis (ICD-10 - N20.0) 12/13/2024 Dehydration (ICD-10 - E86.0) 12/21/2024 Dehydration (ICD-10 - E86.0) 12/21/2024 Nephrolithiasis (ICD-10 - N20.0) 01/12/2025 Nephrolithiasis (ICD-10 - N20.0) 01/16/2025 Acute kidney injury (ICD-10 - N17.9) 03/12/2025 UTI (urinary tract infection), uncomplicated (ICD-10 [...] until they are finished. You can use uqad-ywv-cooiwgl acetaminophen or ibuprofen if needed for pain. You should follow up with your Primary Care Physician or return to clinic if not improving in the next 3-5 days. 03/29/2024 Mass of neck (ICD-10 - R22.1) 05/17/2024 Vertebral artery occlusion, unspecified laterality (ICD-10 - I65.09) 06/09/2024 Fatigue (ICD-10 - R53.83) 06/09/2024 Migraine (ICD-10 - G43.909) 08/31/2024 Otitis media of left ear (ICD-10 - H66.92) 09/14/2024 Migraine (ICD-10 - G43.909) 09/22/2024 Dehydration (ICD-10 - E86.0) 02/05/2025 Dehydration (ICD-10 - E86.0) 03/12/2025 Dysuria (ICD-10 - R30.0) 03/12/2025 Hypertension (ICD-10 - I10) 07/05/2024 Vertigo (ICD-10 - R42) 05/17/2024 Vertigo, peripheral (ICD-10 - H81.399) seeing pt - refill mecliziner 12/01/2024 Hypoglycemia (ICD-10 - E16.2) 05/10/2024 Vertigo, peripheral (ICD-10 - H81.399) 12/01/2024 GERD (gastroesophageal reflux disease) (ICD-10 - K21.9) 12/01/2024 Hyperglycemia (ICD-10 - R73.9) 03/22/2024 Other Recommended to rest and use a heating pad on the area. Take NSAIDs for pain as needed 05/04/2024 Other You have been prescribed antibiotics for strep throat. Antibiotics may bother your stomach, so try taking them with a light meal (unless instructed otherwise by your pharmacist). It is important to take them until they are finished. You can use umtc-dez-ptwzhwv acetaminophen or ibuprofen if needed for pain. You can also use throat lozenges or gargle warm water to help with the sore throat. You are contagious until you have been on antibiotics for 24 hours. You should be extra vigilant about hand washing or using hand taxation agent gel. You should follow up with your Primary Care Physician or return to clinic if not improving in the next 3-5 days. 12/07/2024 Other Drink plenty of water. Avoid drinks like [...] until they are finished. You can use upil-rtt-zhebowk acetaminophen or ibuprofen if needed for pain. You should follow up with your Primary Care Physician or return to clinic if not improving in the next 3-5 days. Plan Of Treatment Pending Test Test Name Order Date HEMOGLOBIN A1C (GLYCO) 12/07/2024 LIPID PANEL (CHOL/TRIG/HDL/LDL) 12/07/19 CBC WITH DIFF 12/07/2024 CT Abdomen and Pelvis w/o contrast 03/06 [facility]AM[facility] Mammograms CAD 01/28/2023 US Renals and Bladder 08/17/2023 US Soft Tissue Neck/Head 03/03/2024 Urinalysis Microscopic 03/15/2024 Urinalysis Microscopic 06/20/2024 LACTATE 03/15/2024 COMPREHENSIVE METABOLIC PROFILE WITH GFR 06/09/2024 CBC AUTO DIFF 06/09/2024 Covid-19 PCR (CVDTBH) 06/14/2024 CULTURE URINE 03/15/2024 CULTURE URINE 06/20/2024 GLYCOHEMOGLOBIN A1C 03/12/2025 PROF 14(COMP METB) 03/12/2025 PROTIME 03/03/2024 VIT B12 AND FOLATE 06/09/2024 US KIDNEYS 08/17/2023 XR KUB 1 VIEW 03/03/2024 XR KUB 1 VIEW 03/15/2024 XR KUB 1 VIEW 12/07/2024 THYROID PANEL (T4/TSH/FREE T3) THYROID PANEL (T4/TSH/FREE T3) US renal bladder 12/11/2024 US soft tissue head and neck 03/29/2024 MRA Brain w/o contrast 05/17/2024 CMP (COMP MET NICHOLS) w/eGFR CKD-EPI 2024 Next Appt Details Provider Name:Malachi Ledesma, 08:30:00 AM, [address] [place], [address], Insurance Providers Payer Name Payer Address Payer Phone Subscriber Number Group Number Insured Name Patient Relationship to Insured Coverage Start Date Coverage End Date [employer] [address] [address] [place] [address] [id number] Mando Moore Spouse - patient is the spouse of the insured Medications Administered Medication Instructions Date of Administration Dosage Notes Dexamethasone, 4mg/mL 05/10/2024 8 mg 8 m g Dexamethasone, 4mg/mL 06/14/2024 8 mg 8 Kenalog-40 11/03/2023 80 mg 80 Kenalog-40 11/22/2023 80 mg 80 Phenergan 12/07/2024 25 mg Phenergan 08/20/2023 2 mL Promethazine 25mg 01/21/2023 25 mg Promethazine 25mg 10/23/2024 25 mg Promethazine 25mg 10/26/2024 25 mg Promethazine 25mg 12/11/2024 25 mg Promethazine, 25 mg 08/20/2023 1 mL 25 Promethazine, 25 mg 03/15/2024 1 mL 25 mg Promethazine, 25 mg 08/14/2024 1 mL 25 Promethazine, 25 mg 08/31/2024 25 mg 25 mg Promethazine, 25 mg 09/26/2024 25 mg 25 mg IM Promethazine, 25 mg 09/27/2024 50 mg Medical (General) History Medical History History ICD Code COVID-19 virus infection U07.1 Nephrolithiasis N20.0 Well adult Z00.00 Other cystitis without hematuria N30.80 Vertigo, peripheral H81.399 Otitis media of left ear H66.92 Unspecified otitis externa, unspecified ear H60.90 Contact with and (suspected) exposure to other viral communicable diseases Z20.828 Knee pain M25.569 Gastrojejunal ulcer K28.9 Dehydration E86.0 Cobalamin deficiency E53.8 Sprain of lateral collateral ligament of left knee, initial encounter S83.422A Arm pain, left M79.602 Pyelonephritis N12 Acute gastric ulcer K25.3 Adverse effect of unspecifie d drugs, medicaments and biological substances, initial encounter T50.905A Discharge from right nipple N64.52 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 G43.009 Acute recurrent frontal sinusitis J01.11 Colitis K52.9 Other marginal perforations of tympanic membrane, left ear H72.2X2 Personal history of other diseases of ur inary system Z87.448 Low back pain, unspecified M54.50 Contracture, unspecified ankle M24.573 Plantar fasciitis M72.2 Hypertension I10 Diverticulitis K57.92 Hiatal hernia K44.9 Cyst, ovarian N83.209 Diverticular disease K57.90 Osteoarthritis M19.90 Allergic rhinitis, seasonal J30.2 Contracture of muscle, unspecified shoul luc M62.419 Surgical History Surgery Date(Month/Year) Superficial Parotidectomy 08/03 EGD 10/27/2023 Left Knee Replacement x 2 Gastric Bypass 2017 Hysterectomy Appendix Gallbladder Hospitalization History Reason Date(Month/Year) see above Ulcerative Colitis 2023
--- OUTSIDE RECORDS SUMMARY | 2025-03-19 20:25 | XMS_ITS | Encounter Summary ---
Author Organization [facility] Address [address] [place] [address] Care Team Providers Care Testing And Regulating Chief Name Role Phone Yasir Ledesma MD Primary Care Provider [phone] Tyrel King MD Unavailable Reason for Visit * Reason Onset Date Comments Med Refill 11/22/2023 Encounter Details Date Type Department Care Team (Late st Contact Info) Description 11/22/2023 Refill [facility] [address] [place] [place] [address] Nohelia Reece, [employer] SAL[employer] [address] [place] [address] Complex regional pain syndrome type [...] How often do you attend chur or roman catholic services? More than 4 times per year 08/13/2022 Do you belong to any clubs o r organizations such as restorationism groups, unions, fraternal or athletic groups, or [...] Date Recorded Patient Health Questionnaire-2 Score 0 10/28/2023 [facility] [place] of Occupat ional Health - Occupational Stress [...] exercise at this level? 20 min 08/13/2022 [place] Safety & Environment Answer Date Rec orded [...] place to sleep or slept in a fpc (including now)? 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
--- OUTSIDE RECORDS SUMMARY | 2025-03-19 20:25 | XMS_ITS | Clinical Summary ---
Author Organization [facility] Address [address] [place] [address] Care Team Providers Care Block Sorter Name Role Phone Yasir Ledesma MD Primary Care Provider [phone] Allergies Active Allergy Reactions Criticality Noted Date Comments Desonide 01/08/2021 Ketorolac Rash Low 05/29/2015 Meperidine Rash Low 08/01/2013 Meperidine Hcl 01/08/2021 Medications multivitamin tablet Take 1 tablet by mouth daily. Active Cyanocobalamin (B-12 COMPLIANCE INJECTION IJ) Inject as directed every 30 days. Active promethazine 25 MG tablet Take 25 mg by mouth every 6 hours as needed for Nausea. Active hydroCODone-julia taminophen 5-325 MG tablet Take 1 tablet by mouth every 4 hours as needed. Active amitriptyline 10 MG tablet daily. 01/16/2021 Active sucralfate 1 GM/10ML oral suspension as needed. 02/10/2021 Active tiZANidine 4 MG tablet as needed. 02/10/2021 Active Calcium Carbonate-Vit D-Min (CALCIUM 1200 PO) Take by mouth daily. Active ferrous sulfate 325 (65 Fe) MG tablet Take 325 mg by mouth daily. Active acetaminophen 325 MG tablet Take 325 mg by mouth every 4 hours as needed. Active pantoprazole Sodium (Protonix) 40 MG Pack Take 40 mg by mouth 2 times daily. Active oxyCODONE-aceta minophen 5-325 MG per tabletIndicatio ns:Inverted nipple Take 1 tablet by mouth every 6 hours as needed for Moderate Pain (Use ONLY as needed for pain) for up to 3 days. 5 tablet 02/26/2021 Active Active Problems Problem Noted Date Diagnosed Date History of right breast biopsy 02/06/2021 Overview (02/06/2021): Added automatically from request for surgery [id number] Nipple pain 02/06/2021 Overview (02/06/2021): Added automatically from request for surgery [id number] Inverted nipple 01/08/2021 Hx of right breast biopsy 01/08/2021 Pain of right breast 01/08/2021 Nipple discharge 01/08/2021 Immunizations Immunization Administration Dates Next Due Influenza Vaccine, Quadrivalent MDCK PF 07/03/20 20 Influenza Vaccine, Trivalent 07/11/2020,09/17/20 13 Influenza, injectable, quadrivalent, preservativ e free 07/18/2019,07/08/2018 Pneumococcal Polysac 23-Valent Vaccine 6 Tdap Vaccine 07/10/2011 Family History Medical History Relation Name Comments Breast Cancer Sister Relation Name Status Comments Sister Social History Tobacco Use Types Packs/Day Years Used Date Smoking Tobacco: Former Cigarettes Q uit: 2018 Smokeless Tobacco: Never Tobacco Cessation:Ready to Q uit: No; Counseling Given: Yes Alcohol Use Standard Drinks/Week Comments Not Currently 0 (1 standard drink = 0.6 oz pur e alcohol) Comments No Sex and Gender Information Value Date Recorded Sex Assigned at Not on file Legal Sex Female 3:54 PM EST Gender Identity Not on file Sexual Orientation Not on file Last Filed Vital Signs Vital Sign Reading Time Taken Comments Blood Pressure 128/86 04/15/2021 2:39 PM EDT Pulse 77 04/15/2021 2:39 PM EDT Temperature 36.6 C (97.9 F) 04/15/2021 2:39 PM EDT Respiratory Rate 16 03/06/2021 3:45 PM EDT Oxygen Saturation 98% 03/06/2021 3:45 PM EDT Inhaled Oxygen Concentration - - Weight 70.5 kg (155 lb 6.4 oz) 04/15/2021 2:39 P M EDT Height 167.6 cm (5' 6 ) 03/06/2021 11:18 AM EDT Body Mass Index 25.08 03/06/2021 11:18 AM EDT Plan of Treatment Health Maintenance Due Date Last Done Comments HEPATITIS C VIRUS SCREENING 1981 HIV SCREENING DISCUSSION 1996 HEP B VACCINE (1 of 3 - 19+ 3-dose series) 2000 CERVICAL CANCER SCREENING DISCUSSION 2002 TETANUS 07/10/2021 07/10/2011 LIPID SCREENING 2021 MAMMOGRAM SCREENING DISCUSSION 2021 COVID-19 VACCINE (2023- season) 2024 01/30/2021, 01/09/2021 INFLUENZA VACCINE (Season Ended) 2025 07/11/2020, 07/03/2020, 07/18/2019, Additional history exists TDAP (ADULT) Completed 07/10/2011 PNEUMOCOCCAL VACCINE SERIES Aged Out 01/01/2016 No longer eligible based on patient's age to complete this topic HPV VACCINE Aged Out No longer eligi ble based on patient's age to complete this topic Insurance [facility] Care Teams Block Sorter Relationship Specialty Start Date End Date Yasir Ledesma MD PCP - General Family Medicine 01/08/21
--- OUTSIDE RECORDS SUMMARY | 2025-03-19 20:34 | XMS_ITS | CCD ---
Author Organization [facility] Care Team Providers Care Lab Asst Name Role Phone TAMEZ, ZHANE W Unavailable [...] Referring Unavailable HOY, ARLETH Primary Care Unavailable STEENHOFF ARIADNE Admitting Unavailable STEROBERT BAHOTHY Attending Unavailable SELF, REFERRED Referring Unavailable Kevin [...] Kevin Admitting Unavailable Gehling, Kevin Attending Unavailable HOYBETHARLETH Primary Care Unavailable KAVITHAYBETHARLETH Referring Unavailable Gehling, Kevin Attending Unavailable Gehling, Kevin Admitting Unavailable SELF, REFERRED Primary Care Unavailable SELF, REFERRED Referring Unavailable SELF, REFERRED Primary Care Unavailable FORSHEY, JORDEN D Admitting Unavailable FORSHEY, JORDEN D Attending Unavailable SELF, REFERRED Referring Unavailable SELF, REFERRED Primary Care Unavailable Gehling, Kevin Attending Unavailable Gehling, Kevin Admitting Unavailable SELF, REFERRED Referring Unavailable Arleth Acharya Primary Care Physician [phone] HAWKINS ., DR ORTIZ Consulting Unavailable [facility] Care Unavailable HAWKINS ., DR ORTIZ Admitting Unavailable HAWKINS ., DR ORTIZ Attending Unavailable HOY ., DR REINOSO Consulting Unavailable HOY ., DR REINOSO Attending Unavailable HOY ., DR REINOSO Primary Care Unavailable HOY ., DR REINOSO Admitting Unavailable HAWKINS ., DR ORTIZ Admitting Unavailable HAWKINS ., DR ORTIZ Consulting Unavailable [facility] Care Unavailable HAWKINS ., DR ORTIZ Attending Unavailable HAWKINS ., DR ORTIZ Consulting Unavailable HOY ., DR REINOSO Primary Care Unavailable PAY ., DR STILL Admitting Unavailable PAY ., DR STILL Attending Unavailable ZIEBER, DR RUSSELL Goss Consulting Unavailable PAY ., DR STILL Consulting Unavailable HAWKINS ., DR ORTIZ Admalphonse Unavailable HAWKINS ., DR ORTIZ Consulting Unavailable HAWKINS ., DR ORTIZ Attending Unavailable HOY ., DR REINOSO Primary Care Unavailable HAWKINS ., DR ORTIZ Consulting Unavailable [facility] Care Unavailable HAWKINS ., DR ORTIZ Admitting [...] REINOSO Consulting Unavailable HOY ., DR REINOSO Admitting Unavailable HOY ., DR REINOSO Primary Care Unavailable HOY ., DR REINOSO Attending Unavailable HOY ., DR REINOSO Admalphonse Unavailable HOY ., DR REINOSO Primary Care Unavailable HOY ., DR REINOSO Consulting Unavailable HOY ., DR REINOSO Attending Unavailable DENILSON AUSTIN Consulting Unavailable HOY ., DR REINOSO Consulting Unavailable HOY ., DR REINSOO Attending Unavailable HOY ., DR REINOSO Primary Care Unavailable HOY ., DR REINOSO Admalphonse Unavailable HAWKINS ., DR ORTIZ Admitting Unavailable HAWKINS ., DR ORTIZ Consulting Unavailable HAWKINS ., DR ORTIZ Attending Unavailable HOY ., DR REINOSO Primary Care Unavailable DANGELOGAVINO Yi Consulting Unavailable KUAYSHA, NAZIA Consulting Unavailable LONI ., ENEDINA Attending Unavailable [...] Unavailable MD Arleth Acharya Primary Care Provider [phone] MD Arleth Acharya Referring Provider [phone] DO Calderón Attending Provider MD Arleth Acharya Primary Care Provider [phone] DO Antonio Attending Provider [phone] MD Harry Pettit V Attending Provider Harry [...] Unavailable Arleth Acharya MD Primary Care Provider [phone] DIANA HAWKINS Referring Unavailable HOY, ARLETH M Primary Care Unavailable HOY, ARLETH M Referring Unavailable HOY, ARLETH M Primary Care Unavailable HOY, ARLETH M Primary Care Unavailable LATONYA, BRYAN Attending Unavailable LATONYA BRYAN Attending Unavailable LATONYA, BRYAN Referring Unavailable HOY, ARLETH M Primary Care Unavailable HOY, ARLETH M Primary Care Unavailable SHERYL ESPINOZA Attending Unavailable HOY, ARLETH M Primary Care Unavailable RUSSELL PEREZ Attending Unavailable HOY, ARLETH M Primary Care Unavailable GLEN OSEI Attending Unavailable ALYSA POWELL Admitting Unavailable ANGELA, RUKHSANA Attending Unavailable ANGELA, RUKHSANA Referring Unavailable MORALES, CURLY Attending Unavailable MORALES, CURLY Referring Unavailable SHENDGE, VITHAL Referring Unavailable DEWAYNE, KHRIS A Referring Unavailable DEWAYNE, KHRIS A Referring Unavailable ANGELA, RUKHSANA Attending Unavailable DEWAYNE, KHRIS A Attending Unavailable SHENDGE, VITHAL Attending Unavailable ANGELA, RUKHSANA Attending Unavailable SHENDGE, VITHAL Attending Unavailable ANGELA, RUKHSANA Attending Unavailable Unavailable Primary Care Provider Unavailrashawn e Allergies Allergy Classification Reported Allergen(s) Allergy Type Date of Onset Reaction(s) Facility NSAIDs (1 source) Ketorolac; Translations: [ketorolac] Drug Allergy Unknown (qualifier value) [facility] Opioid Agonists (1 source) Meperidine; Translations: [meperidine] Drug Allergy [facility] Prochlorperazine (1 source) Prochlorperazi ne; Translations: [prochlorperaz ine] Drug Allergy Hallucinations (finding) [facility] (8 sources) ketorolac; Translations: [Toradol] Drug Allergy 05-29-20 15 Unknown (qualifier value) [facility] Repository (6 sources) meperidine; Translations: [Demerol HCl] Drug Allergy [facility] Repository (2 sources) Meperidine Drug Allergy 08-01-20 13 [facility] Repository (1 source) Desonide Drug Allergy [facility]ository (6 sources) Ketorolac; Translations: [ketorolac] Drug Allergy 11-22-19 22 Unknown Reaction (8 sources) Meperidine; Translations: [meperidine] Drug Allergy 08-01-20 13 Rash (6 sources) Prochlorperazi ne; Translations: [prochlorperaz ine] Drug Allergy 02-12-20 23 Hallucinations (finding), Hallucinations [facility] (1 source) No Known Medication Allergies; Translations: [No Known Medication Allergies] Propensity to adverse reactions (disorder) [facility] Repository (2 sources) Ketorolac; Translations: [KETOROLAC TROMETHAMINE] Drug Allergy 08-22-20 15 Rash [facility] (1 source) Desonide; Translations: [DESONIDE] Drug Allergy [...] tablet (8 sources) Opioid Agonist Start: 09-24-2023 Prescott 325 mg-5 mg oral tablet 1 tab(s), Oral, q12hr for pain, 20 tab(s), Refill(s) 0, 1 to 2 tabs every 4 to 6 hours as needed for pain, Pain, [facility][id number], 167, cm, 09/13/23 12:07:00 EST, Height/Length Dosing, 70.5, kg, 09/13/23 12:07:00 EST, Weight Dosing Start Date: 09/24/23 Status: Ordered Start: 05-27-2023 take 1 tablet by mary th twice daily Hydrocodone-Acetaminophen Active 1 TAB P O Twice daily May 27, 2023 12:00am Start: 07-27-2022 Prescott 325 mg-5 mg oral tablet 1 tab(s), Oral, BID Pain 8-10, 20 tab(s), Refill(s) 0, [facility] #[id number], 167, cm, 06/29/22 9:28:00 EDT, Height/Length Dosing, 69, kg, 06/29/22 9:28:00 EDT, Weight Dosing Start Date: 07/27/22 Status: Ordered Start: 06-29-2022 take 1 tablet by mary th every six hours Prescott 325 mg-5 mg oral tablet tab(s), Or [...] [id number], 167, cm, 09/13/23 12:07:00 EST, Height/Length Dosing, [...] (1 source) Antiarrhythmic, Amide Local Anesthetic Start: 12-23-2 022 apply 1 dose transdermal route once [...] mouth 2 times daily 0 Active nystatin 572901 unt/ml oral suspension (1 source) Polyene Antifungal nystatin (MYCOSTATIN ) 904105 UNIT/ML suspension Take by mouth 0 Active [...] Onset: 12-09-2021 Chronic Other aftercare (1 source) 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; Translations: [HOTEL ENGINEER (CURRENT) USE OF ASPIRIN] Onset: 06-03-2022 Episodic Other aftercare (2 sources) Other 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 engineer (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) drug therapy; Translations: [[facility] (CURRENT) DRUG THERAPY] Onset: 08-12-2021 Episodic Other [...] Onset: 07-24-2024 Chronic Other nervous system disorders (1 source) [...] [Opioid use, unspecified, uncomplicated] Onset: 07-19-2024 Episodic Syncope (2 sources) Syncope and collapse; [...] Test Name Value Interpretation Reference Range [facility] Ref[facility] [id number] Madyson Moore 1980 F Date Provider Department Center 02/26/2025 RUKHSANA ESPINOZA MP [facility] Family History Problem Relation Age of Onset Brain cancer Mother Breast cancer Sister Kidney cancer Maternal Grandmother Prostate cancer Paternal Grandfather Cancer Father Cancer Sister Family Status - Relation Status Age at Mother Sister Maternal Grandmother Paternal Grandfather Father Sister Reason for Visit and Comments: Med Refill [[id number]] Normal [facility] Follow-Upon 01-26-2025 Follow-Up [id number] Madyson Moore 1980 F Date Provider Department Center 01/26/2025 RUKHSANA ESPINOZA MP PAIN [facility] Family History Problem Relation Age of Onset Brain cancer Mother Breast cancer Sister Kidney cancer Maternal Grandmother Prostate cancer Paternal Grandfather Cancer Father Cancer Sister Family Status - Relation Status Age at Mother Sister Maternal Grandmother Paternal Grandfather Father Sister Level of Service:16742 MT OFFICE/OUTPATIENT ESTABLISHED MOD MDM 30 MIN Reason for Visit and Comments: Follow-up [508560] - Failed GTB Med Refill [[id number]] - [facility] [[id number]] - Refill Prescott Pill Count No bottle Normal [facility] C DIFFICILE BY PCRon 025 C. difficile toxin genes MAMIE+probe Ql (Stl) TOXIGENIC C DIFF Negative (qualifier value) 027 NAP1 Negative (qualifier value) Normal [facility] Comment on above: Performed By: #### 3 094-0, 06759-1, 2074-0, 2028-06, HIGH WORKER, 2951- 2, 2777-1, 3084-1, 2731-8 #### [facility] ([id number]) [address], [address] [place] [address] #### CITACU #### [facility] ([id number]) [address] [place] [address] 95802 CBC AND AUTO DIFFon 01-12-20 25 ABSOLUTE BASOPHIL 0.0 X10E9/L Normal 0.0-0.2 [facility] Comment on above: Performed By: #### 3 094-0, 38283-0, 0, 2028-06, HIGH WORKER, 2951- 2, 2777-1, 3084-1, 2731-8 #### [facility] ([id number]) [address] [place] [address], [address] [place] [address] #### CITACU #### [facility] ([id number]) [address] [place] [address] 43076 ABSOLUTE NEUTROPHIL 5.0 X10E9/L Normal 1.5-6.6 [facility] Comment on above: Performed By: #### 3 094-0, 79797-4, 2074-0, 2028-06, HIGH WORKER, 2951- 2, 2777-1, 3084-1, 2731-8 #### [facility] ([id number]) [address] [place] [address], [address] [place] [address] #### CITACU #### [facility] ([id number]) [address] [place] [address] 60094 Basophils/100 WBC (Bld) 0.2 % Normal [facility] Comment on above: Performed By: #### 3 094-0, 89258-3, 0, 2028-06, HIGH WORKER, 2951- 2, 2777-1, 3084-1, 2731-8 #### [facility] ([id number]) [address], [address] [place] [address] #### CITACU #### [facility] ([id number]) [address] [place] [address] 57905 Eosinophils (Bld) [#/Vol] 0.0 10*3/uL Normal 0.0-0.4 [facility] Comment on above: Performed By: #### 3 094-0, 89978-8, , 2028-06, HIGH WORKER, 2951- 2, 2777-1, 3084-1, 2731-8 #### [facility] ([id number]) [address], [address] [place] [address] #### CITACU #### [facility] ([id number]) [address] [place] [address] 54865 Eosinophils/100 WBC (Bld) 0.4 % Normal [facility] Comment on above: Performed By: #### 3 094-0, 17212-7, , 2028-06, HIGH WORKER, 2951- 2, 2777-1, 3084-1, 2731-8 #### [facility] ([id number]) [address], [address] [place] [address] #### CITACU #### [facility] ([id number]) [address] [place] [address] 76548 Erythrocyte distribution width (RBC) [Ratio] 18.6 % High 11.5-15.0 [facility] Comment on above: Performed By: #### 3 094-0, , 2074-0, 2028-06, HIGH WORKER, 2951- 2, 2777-1, 3084-1, 2731-8 #### [facility] ([id number]) [address], [address] [place] [address] #### CITACU #### [facility] ([id number]) [address] [place] [address] 37806 Hematocrit (Bld) [Volume fraction] 36.9 % Normal 35-47 [facility] Comment on above: Performed By: #### 3 094-0, 74974-0, 0, 2028-06, HIGH WORKER, 2951- 2, 2777-1, 3084-1, 2731-8 #### [facility] ([id number]) [address] [facility], [address] [place] [address] #### CITACU #### [facility] ([id number]) [address] [place] [address] 74161 Hemoglobin (Bld) [Mass/Vol] 11.8 g/dL Normal 11.7-15.5 [facility] Comment on above: Performed By: #### 3 094-0, 73537-7, 0, 2028-06, HIGH WORKER, 2951- 2, 2777-1, 3084-1, 2731-8 #### [facility] ([id number]) [address], [address] [place] [address] #### CITACU #### [facility] ([id number]) [address] [place] [address] 91338 Lymphocytes (Bld) [#/Vol] 1.8 10*3/uL Normal 1.0-3.5 [facility] Comment on above: Performed By: #### 3 094-0, 78759-3, 2074-0, 2028-06, HIGH WORKER, 2951- 2, 2777-1, 3084-1, 2731-8 #### [facility] ([id number]) [address], [address] [place] [address] #### CITACU #### [facility] ([id number]) [address] [place] [address] 06187 Lymphocytes/100 WBC (Bld) 22.5 % Normal [facility] Comment on above: Performed By: #### 3 094-0, 93359-9, 0, 2028-06, HIGH WORKER, 2951- 2, 2777-1, 3084-1, 2730-8 #### [facility] ([id number]) [address], [address] [place] [address] #### CITACU #### [facility] ([id number]) [address] [place] [address] 54285 MCH (RBC) [Entitic mass] 25.2 pg Low 27-34 [facility] Comment on above: Performed By: #### 3 094-0, 84761-0, 0, 2028-06, HIGH WORKER, 2951- 2, 2777-1, 3084-1, 2731-05 #### [facility] ([id number]) [address], [address] [place] [address] #### [place]U #### [facility] ([id number]) [address] [place] [address] 45255 MCHC (RBC) [Mass/Vol] 32.1 g/dL Normal 32-36 [facility] Comment on above: Performed By: #### 3 094-0, 88086-0, 0, 2028-06, HIGH WORKER, 2951- 2, 2777-1, 3084-1, 273-8 #### [facility] ([id number]) [address], [address] [place] [address] #### [place]U #### [facility] ([id number]) [address] [place] [address] 68050 MCV (RBC) [Entitic vol] 78 fL Low 80-100 [facility] Comment on above: Performed By: #### 3 094-0, 31316-1, 2074-0, 9, HIGH WORKER, 2951- 2, 2777-1, 3084-1, 2731-8 #### [facility] ([id number]) [address] [facility], [address] [place] [address] #### CIT[place]U #### [facility] ([id number]) [address] [place] [address] 69826 Monocytes (Bld) [#/Vol] 1.0 10*3/uL High 0-0.9 [facility] Comment on above: Performed By: #### 3 094-0, 22347-1, 2074-0, 2028-06, HIGH WORKER, 2951- 2, 2777-1, 3084-1, 273-8 #### [facility] ([id number]) [address] [facility], [address] [place] [address] #### [place]U #### [facility] ([id number]) [address] [place] [address] 58932 Monocytes/100 WBC (Bld) 13.1 % Normal [facility] Comment on above: Performed By: #### 3 094-0, 24904-8, 2074-0, 2028-06, HIGH WORKER, 2951- 2, 2777-1, 3084-1, 2731-8 #### [facility] ([id number]) [address], [address] [place] [address] #### CITACU #### [facility] ([id number]) [address] [place] [address] 68528 Neutrophils/100 WBC (Bld) 63.8 % Normal [facility] Comment on above: Performed By: #### 3 094-0, 51035-1, 0, 2028-06, HIGH WORKER, 2951- 2, 2777-1, 3084-1, 2731-8 #### [facility] ([id number]) [address] [facility], [address] [place] [address] #### [place]U #### [facility] ([id number]) [address] [place] [address] 16500 Platelet mean volume (Bld) [Entitic vol] 7.9 fL Normal 7-12 [facility] Comment on above: Performed By: #### 3 094-0, 21834-3, , 2028-06, HIGH WORKER, 2951- 2, 2777-1, 3084-1, 2731-8 #### [facility] ([id number]) [address] [facility], [address] [place] [address] #### CITACU #### [facility] ([id number]) [address] [place] [address] 58979 Platelets (Bld) [#/Vol] 289 10*3/uL Normal 150-450 [facility] Comment on above: Performed By: #### 3 094-0, 18873-9, 0, 2028-06, HIGH WORKER, 2951- 2, 2777-1, 3084-1, 2731-8 #### [facility] ([id number]) [address] [facility], [address] [place] [address] #### CIT[place]U #### [facility] ([id number]) [address] [place] [address] 86635 RBC COUNT 4.70 X10E12/L Normal 3.80-5.20 [facility] Comment on above: Performed By: #### 3 094-0, 04362-2, , 2028-9, HIGH WORKER, 2951- 2, 2777-1, 3084-1, 2731-8 #### [facility] ([id number]) [address] [place] [address], [address] [place] [address] #### [place]U #### [facility] ([id number]) [address] [place] [address] 72388 WBC (Bld) [#/Vol] 7.8 10*3/uL Normal 4.0-11.0 [facility] Comment on above: Performed By: #### 3 094-0, 34942-0, 0, 2028-06, HIGH WORKER, 2951- 2, 2777-1, 3084-1, 273-8 #### [facility] ([id number]) [address] [place] [address], [address] [place] [address] #### [place]U #### [facility] ([id number]) [address] [place] [address] 40245 COMPREHENSIVE METABOLIC PANE Nico 01-11-2025 Albumin [Mass/Vol] 3.8 g/dL Normal 3.2-5.3 [facility] Comment on above: Performed By: #### 3 094-0, 80312-5, 0, 2028-06, HIGH WORKER, 2951- 2, 2777-1, 3084-1, 273-8 #### [facility] ([id number]) [address] [place] [address], [address] [place] [address] #### [place]U #### [facility] ([id number]) [address] [place] [address] 53146 ALP [Catalytic activity/Vol] 95 U/L Normal 39-130 [facility] Comment on above: Performed By: #### 3 094-0, 28463-8, 2074-0, 2028-06, HIGH WORKER, 2951- 2, 2777-1, 3084-1, 2731-8 #### [facility] ([id number]) [address], [address] [place] [address] #### [place]U #### [facility] ([id number]) [address] [place] [address] 93765 ALT [Catalytic activity/Vol] 21 U/L Normal 0-31 [facility] Comment on above: Performed By: #### 3 094-0, 61277-0, 2074-0, 2028-06, HIGH WORKER, 2951- 2, 2777-1, 3084-1, 2731-8 #### [facility] ([id number]) [address] [facility], [address] [place] [address] #### [place]U #### [facility] ([id number]) [address] [place] [address] 55188 Anion gap [Moles/Vol] 7 mmol/L Normal 5-15 [facility] Comment on above: Performed By: #### 3 094-0, 75527-9, 2074-0, 2028-06, HIGH WORKER, 2951- 2, 2777-1, 3084-1, 2731-8 #### [facility] ([id number]) [address] [facility], [address] [place] [address] #### [place]U #### [facility] ([id number]) [address] [place] [address] 10003 AST [Catalytic activity/Vol] 35 U/L Normal 0-41 [facility] Comment on above: Performed By: #### 3 094-0, 46295-9, 2074-0, 2028-06, HIGH WORKER, 2951- 2, 2777-1, 3084-1, 2731-8 #### [facility] ([id number]) [address], [address] [place] [address] #### [place]U #### [facility] ([id number]) [address] [place] [address] 77420 Bilirubin [Mass/Vol] 0.7 mg/dL Normal 0.3-1.2 [facility] Comment on above: Performed By: #### 3 094-0, 80196-7, , 2028-06, HIGH WORKER, 2951- 2, 2777-1, 3084-1, 2731-8 #### [facility] ([id number]) [address], [address] [place] [address] #### CIT[place]U #### [facility] ([id number]) [address] [place] [address] 83819 Calcium [Mass/Vol] 8.4 mg/dL Low 8.5-10.5 [facility] Comment on above: Performed By: #### 3 094-0, 92578-9, , 2028-06, HIGH WORKER, 2951- 2, 2777-1, 3084-1, 2731-8 #### [facility] ([id number]) [address], [address] [place] [address] #### [place]U #### [facility] ([id number]) [address] [place] [address] 51895 Chloride [Moles/Vol] 101 mmol/L Normal 98-109 [facility] Comment on above: Performed By: #### 3 094-0, 74146-4, , 2028-06, HIGH WORKER, 2951- 2, 2777-1, 3084-1, 2731-8 #### [facility] ([id number]) [address], [address] [place] [address] #### [place]U #### [facility] ([id number]) [address] [place] [address] 08453 CO2 [Moles/Vol] 26 mmol/L Normal 22-32 [facility] Comment on above: Performed By: #### 3 094-0, 15049-9, 0, 2028-06, HIGH WORKER, 2951- 2, 2777-1, 3084-1, 2731-8 #### [facility] ([id number]) [address] [facility], [address] [place] [address] #### [place]U #### [facility] ([id number]) [address] [place] [address] 58035 Creatinine [Mass/Vol] 2.63 mg/dL High 0.40-1.00 [facility] Comment on above: Result Comment: METH OD TRACEABLE TO IDMS STANDARD Performed By: #### 3 094-0, 81320-5, , 2028-06, HIGH WORKER, 2951-2, 2777-1, 3084-1, 273-8 #### [facility] ([id number]) [address], [address] [place] [address] #### CITACU #### [facility] ([id number]) [address] [place] [address] GFR/1.73 sq M.predicted among non-blacks MDRD (S/P/Bld) [Vol rate/Area] 22 mL/min/{1.73_m2} Low >59 [facility] Comment on above: Result Comment: Reported eGFR is based on the CKD-EPI 2020 equation that does not use a race coefficient. Performed By: #### 3 094-0, 51144-1, 0, 2028-06, HIGH WORKER, 2951-2, 2777-1, 3084-1, 273-8 #### [facility] ([id number]) [address], [address] [place] [address] #### CITACU #### [facility] ([id number]) [address] [place] [address]154 Glucose [Mass/Vol] 102 mg/dL High 65-99 [facility] Comment on above: Performed By: #### 3 094-0, 88294-7, 0, 2028-06, HIGH WORKER, 2951- 2, 2777-1, 3084-1, 2731-8 #### [facility] ([id number]) [address], [address] [place] [address] #### CITACU #### [facility] ([id number]) [address] [place] [address]5712 Potassium [Moles/Vol] 4.7 mmol/L Normal 3.5-5.0 [facility] Comment on above: Performed By: #### 3 094-0, 47793-1, , 2028-06, HIGH WORKER, 2951- 2, 2777-1, 3084-1, 2731-8 #### [facility] ([id number]) [address] [facility], [address] [place] [address] #### CITACU #### [facility] [facility] ([id number]) [address] [place] [address] 24050 Protein [Mass/Vol] 7.0 g/dL Normal 6.0-8.0 [facility] Comment on above: Performed By: #### 3 094-0, 69500-3, , 2028-06, HIGH WORKER, 2951- 2, 2777-1, 3084-1, 2731-8 #### [facility] ([id number]) [address], [address] [place] [address] #### CIT[place]U #### [facility] ([id number]) [address] [place] [address] 29749 Sodium [Moles/Vol] 134 mmol/L Normal 134-146 [facility] Comment on above: Performed By: #### 3 094-0, 84369-6, , 2028-9, HIGH WORKER, 2951- 2, 2777-1, 3084-1, 2731-8 #### [facility] ([id number]) [address], [address] [place] [address] #### CITACU #### [facility] ([id number]) [address] [facility], [place] [address] Urea nitrogen [Mass/Vol] 36 mg/dL High 5-23 [facility] Comment on above: Performed By: #### 3 094-0, 24537-2, 2075-0, 2028-06, HIGH WORKER, 2951- 2, 2777-1, 3084-1, 2731-8 #### [facility] ([id number]) [address], [address] [place] [address] #### CITACU #### [facility] ([id number]) [address] [place] [address] [address] ABDOMEN AND PELVIS WO CON Ton [...] Andrade MD on 01/11/2025 12:44 PM Normal [facility] GI PANELon 01-11-2025 Gastrointestinal pathogens DNA and [...] SAPOVIRUS Not detected (qualifier value) Normal NDET [facility] Comment on above: Performed By: #### 3 094-0, 36358-4, , 2028-06, HIGH WORKER, 2951- 2, 2777-1, 3084-1, 2731-8 #### [facility] ([id number]) [address] [facility], [address] [place] [address] #### CITACU #### [facility] ([id number]) [address] [place] [address], [place] [address] LIPASEon 01-11-2025 Lipase [Catalytic activity/Vol] 29 U/L Normal 17-40 [facility] Comment on above: Performed By: #### 3 094-0, 10091-7, 2074-0, 2028-06, HIGH WORKER, 2951- 2, 2777-1, 3084-1, 2731-8 #### [facility] ([id number]) [address], [address] [place] [address] #### CITACU #### [facility] ([id number]) [address] [place] [address] 94901 PROTIME AND INRon 01-11-2025 INR Coag (PPP) [Relative time] 0.9 {INR} Normal 0.9-1.2 [facility] Comment on above: Performed By: #### 3 094-0, 27744-6, , 2028-06, HIGH WORKER, 2951- 2, 2777-1, 3084-1, 2731-8 #### [facility] ([id number]) [address] [facility], [address] [place] [address] #### CITACU #### [facility] ([id number]) [address] [place] [address] 85513 PT Coag (PPP) [Time] 10.9 s Normal 9.8-13.2 [facility] Comment on above: Result Comment: NEW REFERENCE RANGE Performed By: #### 3 094-0, 07197-4, , 2028-06, HIGH WORKER, 2951-2, 2777-1, 3084-1, 2731-8 #### [facility] ([id number]) [address] [facility], [address] [place] [address] #### CITACU #### [facility] ([id number]) [address] [place] [address]1500 URN MACROSCOPIC NURon 2024 BILIRUBIN JUNIOR MODERATE Abnormal NEG [facility] Comment on above: Performed By: #### 3 094-0, 92639-7, , 2028-06, HIGH WORKER, 2951- 2, 2777-1, 3084-1, 2731-8 #### [facility] ([id number]) [address] [facility], [address] [place] [address] #### [place]U #### [facility] ([id number]) [address] [place] [address] 56886 BLOOD/HGB JUNIOR Negative Normal NEG [facility] Comment on above: Performed By: #### 3 094-0, 31488-2, 0, 2028-06, HIGH WORKER, 2951- 2, 2777-1, 3084-1, 2731-8 #### [facility] ([id number]) [address], [address] [place] [address] #### CITACU #### [facility] ([id number]) [address] [place] [address] GLUCOSE JUNIOR Negative Normal NEG [facility] Comment on above: Performed By: #### 3 094-0, 01565-2, , 2028-06, HIGH WORKER, 2951- 2, 2777-1, 3084-1, 2731-8 #### [facility] ([id number]) [address], [address] [place] [address] #### CIT[place]U #### [facility] ([id number]) [address] [place] [address] 49053 KETONES JUNIOR Trace Abnormal NEG [facility] Comment on above: Performed By: #### 3 094-0, 57563-9, 0, 2028-06, HIGH WORKER, 2951- 2, 2777-1, 3084-1, 2731-8 #### [facility] ([id number]) [address], [address] [place] [address] #### [place]U #### [facility] ([id number]) [address] [place] [address] 72804 LEUKOCYTE ESTERASE JUNIOR Negative Normal NEG [facility] Comment on above: Performed By: #### 3 094-0, 04696-0, , 2028-06, HIGH WORKER, 2951- 2, 2777-1, 3084-1, 2731-8 #### [facility] ([id number]) [address], [address] [place] [address] #### CIT[place]U #### [facility] ([id number]) [address] [place] [address] 00557 NITRITE JUNIOR Negative Normal NEG [facility] Comment on above: Performed By: #### 3 094-0, 67162-9, , 2028-06, HIGH WORKER, 2951- 2, 2777-1, 3084-1, 273-8 #### [facility] ([id number]) [address] [facility], [address] [place] [address] #### CITACU #### [facility] ([id number]) [address] [place] [address] 43268 PH JUNIOR 5.5 Normal 5.0-8.5 [facility] Comment on above: Performed By: #### 3 094-0, 50442-4, , 2028-06, HIGH WORKER, 2951- 2, 2777-1, 3084-1, 273-8 #### [facility] ([id number]) [address], [address] [place] [address] #### [place]U #### [facility] ([id number]) [address] [place] [address] 27693 PROTEIN JUNIOR 100 mg/dL Abnormal NEG [facility] Comment on above: Performed By: #### 3 094-0, 72160-1, , 2028-06, HIGH WORKER, 2951- 2, 2777-1, 3084-1, 2731-8 #### [facility] ([id number]) [address], [address] [place] [address] #### CITACU #### [facility] ([id number]) [address] [place] [address] 85364 SPECIFIC GRAVITY JUNIOR 1.025 Normal 1.003-1.035 [facility] Comment on above: Performed By: #### 3 094-0, 30629-3, 0, 2028-06, HIGH WORKER, 2951- 2, 2777-1, 3084-1, 2731-8 #### [facility] ([id number]) [address], [address] [place] [address] #### CITACU #### [facility] ([id number]) [address] [place] [address] 23374 UROBILINOGEN JUNIOR 0.2 eu/dL Normal <1.1 [facility] Comment on above: Performed By: #### 3 094-0, 82484-0, , 2028-06, HIGH WORKER, 2951- 2, 2777-1, 3084-1, 2731-8 #### [facility] ([id number]) [address], [address] [place] [address] #### CITACU #### [facility] ([id number]) [address] [place] [address] 07372 aPTT Coag (PPP) [Time]on aPTT Coag (Bld) [Time] 32 s Normal 26-37 [facility] Comment on above: Result Comment: NEW REFERENCE RANGE Performed By: #### 3 094-0, 42337-8, 0, 2028-06, HIGH WORKER, 2951-2, 2777-1, 3084-1, 2731-8 #### [facility] ([id number]) [address], [address] [place] [address] #### CITACU #### [facility] ([id number]) [address] [place] [address] 24986 36on 01-08-2025 36 Sent to [facility] Orders Onlyon 01-02-2025 Orders Only [id number] Madyson Moore 1980 F Date Provider Department Center 01/02/2025 [id number]-WLQQJMIGDALIA MOE MP [facility] Family History Problem Relation Age of Onset Brain cancer Mother Breast cancer Sister Kidney cancer Maternal Grandmother Prostate cancer Paternal Grandfather Cancer Father Cancer Sister Family Status - Relation Status Age at Mother Sister Maternal Grandmother Paternal Grandfather Father Sister [facility] Refillon 01-01-2025 Refill [id number] Madyson Moore 1980 F Date Provider Department Center 01/01/2025 170-RUKHSANA MILLER MP PAIN [facility] Family History Problem Relation Age of Onset Brain cancer Mother Breast cancer Sister Kidney cancer Maternal Grandmother Prostate cancer Paternal Grandfather Cancer Father Cancer Sister Family Status - Relation Status Age at Mother Sister Maternal Grandmother Paternal Grandfather Father Sister Reason for Visit and Comments: Med Refill [302221] [facility] Follow-Upon 12-25-2024 Follow-Up [id number] Madyson Moore 1980 F Date Provider Department Center 12/25/2024 433-MONIQUE BURKETT MP ORTHO MPORTHO Family History Problem Relation Age of Onset Brain cancer Mother Breast cancer Sister Kidney cancer Maternal Grandmother Prostate cancer Paternal Grandfather Cancer Father Cancer Sister Family Status - Relation Status Age at Mother Sister Maternal Grandmother Paternal Grandfather Father Sister Level of Service:89041 MT OFFICE/OUTPATIENT ESTABLISHED MOD MDM 30 MIN () Reason for Visit and Comments: Edema [[id number]] - Hx l knee revision & TKA - States she took a fall when her knee gave out last week and when she fell she heard the loudest pop and her pain has been severe since Follow-up [[id number]] - Hx l knee revision & TKA [...] her pain has been severe since Normal [facility] 36on 12-19-2024 36 Sent to [facility] CBC AND AUTO DIFFon 12-08-19 25 ABSOLUTE BASOPHIL 0.0 X10E9/L Normal 0.0-0.2 [facility] Comment on above: Performed By: #### 3 094-0, 11804-9, , 2028-06, HIGH WORKER, 2951- 2, 2777-1, 3084-1, 2731-8 #### [facility] ([id number]) [address] [facility], [address] [place] [address] #### CIT[place]U #### [facility] ([id number]) [address] [place] [address] 46839 ABSOLUTE NEUTROPHIL 2.6 X10E9/L Normal 1.5-6.6 [facility] Comment on above: Performed By: #### 3 094-0, 26703-9, , 2028-06, HIGH WORKER, 2951- 2, 2777-1, 3084-1, 273-8 #### [facility] ([id number]) [address] [facility], [address] [place] [address] #### CIT[place]U #### [facility] ([id number]) [address] [place] [address] 44332 Basophils/100 WBC (Bld) 0.3 % Normal [facility] Comment on above: Performed By: #### 3 094-0, 37518-5, , 2028-06, HIGH WORKER, 2951- 2, 2777-1, 3084-1, 273-8 #### [facility] ([id number]) [address] [facility], [address] [place] [address] #### CIT[place]U #### [facility] ([id number]) [address] [place] [address] 80835 Eosinophils (Bld) [#/Vol] 0.1 10*3/uL Normal 0.0-0.4 [facility] Comment on above: Performed By: #### 3 094-0, 32971-4, , 2028-06, HIGH WORKER, 2951- 2, 2777-1, 3084-1, 273-8 #### [facility] ([id number]) [address], [address] [place] [address] #### CIT[place]U #### [facility] ([id number]) [address] [place] [address] 79850 Eosinophils/100 WBC (Bld) 1.6 % Normal [facility] Comment on above: Performed By: #### 3 094-0, , , 2028-06, HIGH WORKER, 2951- 2, 2777-1, 3084-1, 273-8 #### [facility] ([id number]) [address] [facility], [address] [place] [address] #### CIT[place]U #### [facility] ([id number]) [address] [place] [address] 14950 Erythrocyte distribution width (RBC) [Ratio] 16.0 % High 11.5-15.0 [facility] Comment on above: Performed By: #### 3 094-0, , , 2028-06, HIGH WORKER, 2951- 2, 2777-1, 3084-1, 273-8 #### [facility] ([id number]) [address], [address] [place] [address] #### CITACU #### [facility] ([id number]) [address] [place] [address] 39688 Hematocrit (Bld) [Volume fraction] 33.8 % Low 35-47 [facility] Comment on above: Performed By: #### 3 094-0, , 2074-0, 2028-06, HIGH WORKER, 2951- 2, 2777-1, 3084-1, 2731-8 #### [facility] ([id number]) [address], [address] [place] [address] #### CITACU #### [facility] ([id number]) [address] [place] [address] 42308 Hemoglobin (Bld) [Mass/Vol] 10.9 g/dL Low 11.7-15.5 [facility] Comment on above: Performed By: #### 3 094-0, 95898-6, 0, 2028-06, HIGH WORKER, 2951- 2, 2777-1, 3084-1, 273-8 #### [facility] ([id number]) [address] [facility], [address] [place] [address] #### CITACU #### [facility] ([id number]) [address] [place] [address] 83225 Lymphocytes (Bld) [#/Vol] 2.0 10*3/uL Normal 1.0-3.5 [facility] Comment on above: Performed By: #### 3 094-0, 91956-1, 0, 2028-06, HIGH WORKER, 2951- 2, 2777-1, 3084-1, 273-8 #### [facility] ([id number]) [address] [facility], [address] [place] [address] #### CITACU #### [facility] ([id number]) [address] [place] [address] 90500 Lymphocytes/100 WBC (Bld) 39.6 % Normal [facility] Comment on above: Performed By: #### 3 094-0, 62384-4, 2074-0, 2028-06, HIGH WORKER, 2951- 2, 2777-1, 3084-1, 273-8 #### [facility] ([id number]) [address], [address] [place] [address] #### CITACU #### [facility] ([id number]) [address] [place] [address] 69408 MCH (RBC) [Entitic mass] 24.8 pg Low 27-34 [facility] Comment on above: Performed By: #### 3 094-0, 30834-2, 0, 2028-06, HIGH WORKER, 2951- 2, 2777-1, 3084-1, 2738 #### [facility] ([id number]) [address], [address] [place] [address] #### CITACU #### [facility] ([id number]) [address] [place] [address] 56569 MCHC (RBC) [Mass/Vol] 32.3 g/dL Normal 32-36 [facility] Comment on above: Performed By: #### 3 094-0, 40872-4, 0, 2028-06, HIGH WORKER, 2951- 2, 2777-1, 3084-1, 2731-05 #### [facility] ([id number]) [address], [address] [place] [address] #### CITACU #### [facility] ([id number]) [address] [place] [address] 15595 MCV (RBC) [Entitic vol] 77 fL Low 80-100 [facility] Comment on above: Performed By: #### 3 094-0, 85420-1, 0, 2028-06, HIGH WORKER, 2951- 2, 2777-1, 3084-1, 8 #### [facility] ([id number]) [address], [address] [place] [address] #### CITACU #### [facility] ([id number]) [address] [place] [address] 74626 Monocytes (Bld) [#/Vol] 0.4 10*3/uL Normal 0-0.9 [facility] Comment on above: Performed By: #### 3 094-0, 90644-3, 2074-0, 2028-06, HIGH WORKER, 2951- 2, 2777-1, 3084-1, 2731-8 #### [facility] ([id number]) [address], [address] [place] [address] #### CIT[place]U #### [facility] ([id number]) [address] [place] [address] 40350 Monocytes/100 WBC (Bld) 6.9 % Normal [facility] Comment on above: Performed By: #### 3 094-0, 75665-3, 0, 2028-06, HIGH WORKER, 2951- 2, 2777-1, 3084-1, 2731-8 #### [facility] ([id number]) [address] [facility], [address] [place] [address] #### CIT[place]U #### [facility] ([id number]) [address] [place] [address] 97553 Neutrophils/100 WBC (Bld) 51.6 % Normal [facility] Comment on above: Performed By: #### 3 094-0, 39881-1, 0, 2028-06, HIGH WORKER, 2951- 2, 2777-1, 3084-1, 2731-8 #### [facility] ([id number]) [address], [address] [place] [address] #### CITACU #### [facility] ([id number]) [address] [place] [address] 38260 Platelet mean volume (Bld) [Entitic vol] 8.0 fL Normal 7-12 [facility] Comment on above: Performed By: #### 3 094-0, 68266-7, , 2028-06, HIGH WORKER, 2951- 2, 2777-1, 3084-1, 2731-8 #### [facility] ([id number]) [address], [address] [place] [address] #### CITACU #### [facility] ([id number]) [address] [place] [address] 62544 Platelets (Bld) [#/Vol] 275 10*3/uL Normal 150-450 [facility] Comment on above: Performed By: #### 3 094-0, 17788-5, , 2028-06, HIGH WORKER, 2951- 2, 2777-1, 3084-1, 2731-8 #### [facility] ([id number]) [address] [facility], [address] [place] [address] #### CITACU #### [facility] ([id number]) [address] [place] [address] 62176 RBC COUNT 4.40 X10E12/L Normal 3.80-5.20 [facility] Comment on above: Performed By: #### 3 094-0, 78655-5, , 2028-06, HIGH WORKER, 2951- 2, 2777-1, 3084-1, 2731-8 #### [facility] ([id number]) [address], [address] [place] [address] #### CITACU #### [facility] ([id number]) [address] [place] [address] 55671 WBC (Bld) [#/Vol] 5.1 10*3/uL Normal 4.0-11.0 [facility] Comment on above: Performed By: #### 3 094-0, 51686-8, , 2028-06, HIGH WORKER, 2951- 2, 2777-1, 3084-1, 2731-8 #### [facility] ([id number]) [address] [facility], [address] [place] [address] #### CITACU #### [facility] ([id number]) [address] [place] [address] 79427 COMPREHENSIVE METABOLIC PANE Nico 12-08-2024 Albumin [Mass/Vol] 4.2 g/dL Normal 3.2-5.3 [facility] Comment on above: Performed By: #### 3 094-0, 82053-2, , 2028-06, HIGH WORKER, 2951- 2, 2777-1, 3084-1, 2731-8 #### [facility] ([id number]) [address] [facility], [address] [place] [address] #### CIT[place]U #### [facility] ([id number]) [address] [place] [address] 18936 ALP [Catalytic activity/Vol] 112 U/L Normal 39-130 [facility] Comment on above: Performed By: #### 3 094-0, 58816-7, , 2028-06, HIGH WORKER, 2951- 2, 2777-1, 3084-1, 2731-8 #### [facility] ([id number]) [address] [facility], [address] [place] [address] #### CIT[place]U #### [facility] ([id number]) [address] [place] [address] 39654 ALT [Catalytic activity/Vol] 13 U/L Normal 0-31 [facility] Comment on above: Performed By: #### 3 094-0, 82937-9, , 2028-06, HIGH WORKER, 2951- 2, 2777-1, 3084-1, 2731-8 #### [facility] ([id number]) [address] [facility], [address] [place] [address] #### CITACU #### [facility] ([id number]) [address] [place] [address] 00693 Anion gap [Moles/Vol] 10 mmol/L Normal 5-15 [facility] Comment on above: Performed By: #### 3 094-0, 94404-4, 0, 2028-06, HIGH WORKER, 2951- 2, 2777-1, 3084-1, 2731-8 #### [facility] ([id number]) [address] [facility], [address] [place] [address] #### CITACU #### [facility] ([id number]) [address] [place] [address] 82693 AST [Catalytic activity/Vol] 18 U/L Normal 0-41 [facility] Comment on above: Performed By: #### 3 094-0, 77685-1, 0, 2028-06, HIGH WORKER, 2951- 2, 2777-1, 3084-1, 2731-8 #### [facility] ([id number]) [address] [place] [address], [address] [place] [address] #### CITACU #### [facility] ([id number]) [address] [place] [address] 69085 Bilirubin [Mass/Vol] 0.5 mg/dL Normal 0.3-1.2 [facility] Comment on above: Performed By: #### 3 094-0, 65676-4, 2074-0, 2028-06, HIGH WORKER, 2951- 2, 2777-1, 3084-1, 2731-8 #### [facility] ([id number]) [address] [facility], [address] [place] [address] #### [place] #### [facility] ([id number]) [address] [place] [address]3314 Calcium [Mass/Vol] 8.9 mg/dL Normal 8.5-10.5 [facility] Comment on above: Performed By: #### 3 094-0, 26373-0, , 2028-06, HIGH WORKER, 2951- 2, 2777-1, 3084-1, 2731-8 #### [facility] ([id number]) [address] [facility], [address] [place] [address] #### [place] #### [facility] ([id number]) [address] [place] [address] 79369 Chloride [Moles/Vol] 103 mmol/L Normal 98-109 [facility] Comment on above: Performed By: #### 3 094-0, 82956-1, , 2028-06, HIGH WORKER, 2951- 2, 2777-1, 3084-1, 2731-8 #### [facility] ([id number]) [address] [facility], [address] [place] [address] #### [place] #### [facility] ([id number]) [address] [place] [address] 29274 CO2 [Moles/Vol] 27 mmol/L Normal 22-32 [facility] Comment on above: Performed By: #### 3 094-0, 91834-6, , 2028-06, HIGH WORKER, 2951- 2, 2777-1, 3084-1, 2731-8 #### [facility] ([id number]) [address] [facility], [address] [place] [address] #### [place] #### [facility] ([id number]) [address] [place] [address]1372 Creatinine [Mass/Vol] 0.69 mg/dL Normal 0.40-1.00 [facility] Comment on above: Result Comment: METH OD TRACEABLE TO IDMS STANDARD Performed By: #### 3 094-0, 99093-2, 0, 2028-06, HIGH WORKER, 2951-2, 2777-1, 3084-1, 2731-8 #### [facility] ([id number]) [address], [address] [place] [address] #### [place] #### [facility] ([id number]) [address] [place] [address]508 eGFR (CKD-EPI) NON-RACE DEPENDENT >90 Normal >59 [facility] Comment on above: Result Comment: Reported eGFR is based on the CKD-EPI 2020 equation that does not use a race coefficient. Performed By: #### 3 094-0, 35668-1, 0, 2028-06, HIGH WORKER, 2951-2, 2777-1, 3084-1, 2731-8 #### [facility] ([id number]) [address], [address] [place] [address] #### [place] #### [facility] ([id number]) [address] [place] [address] 43283 Glucose [Mass/Vol] 97 mg/dL Normal 65-99 [facility] Comment on above: Performed By: #### 3 094-0, 28595-2, 0, 2028-06, HIGH WORKER, 2951- 2, 2777-1, 3084-1, 2731-8 #### [facility] ([id number]) [address], [address] [place] [address] #### [place] #### [facility] ([id number]) [address] [place] [address]993 Potassium [Moles/Vol] 4.0 mmol/L Normal 3.5-5.0 [facility] Comment on above: Performed By: #### 3 094-0, 54772-0, 2074-0, 2028-06, HIGH WORKER, 2951- 2, 2777-1, 3084-1, 2731-8 #### [facility] ([id number]) [address], [address] [place] [address] #### CITACU #### [facility] ([id number]) [address] [place] [address] 05502 Protein [Mass/Vol] 7.3 g/dL Normal 6.0-8.0 [facility] Comment on above: Performed By: #### 3 094-0, 73408-5, 0, 2028-06, HIGH WORKER, 2951- 2, 2777-1, 3084-1, 273-8 #### [facility] ([id number]) [address], [address] [place] [address] #### CITACU #### [facility] ([id number]) [address] [place] [address] 49845 Sodium [Moles/Vol] 140 mmol/L Normal 134-146 [facility] Comment on above: Performed By: #### 3 094-0, 15154-4, 0, 2028-06, HIGH WORKER, 2951- 2, 2777-1, 3084-1, 2731-8 #### [facility] ([id number]) [address], [address] [place] [address] #### CITACU #### [facility] ([id number]) [address] [place] [address] 14452 Urea nitrogen [Mass/Vol] 13 mg/dL Normal 5-23 [facility] Comment on above: Performed By: #### 3 094-0, 04493-3, 2074-0, 2028-06, HIGH WORKER, 2951- 2, 2777-1, 3084-1, 2731-8 #### [facility] ([id number]) [address], [address] [place] [address] #### CITACU #### [facility] ([id number]) [address] [place] [address] 14206 URN MACROSCOPIC NURon 2024 BILIRUBIN JUNIOR Negative Normal NEG [facility] Comment on above: Performed By: #### 3 094-0, 32294-2, , 2028-06, HIGH WORKER, 2951- 2, 2777-1, 3084-1, 2731-8 #### [facility] ([id number]) [address] [facility], [address] [place] [address] #### CITACU #### [facility] ([id number]) [address] [place] [address] 37822 BLOOD/HGB JUNIOR Large Abnormal NEG [facility] Comment on above: Performed By: #### 3 094-0, 44903-0, , 2028-06, HIGH WORKER, 2951- 2, 2777-1, 3084-1, 2731-8 #### [facility] ([id number]) [address] [facility], [address] [place] [address] #### CITACU #### [facility] ([id number]) [address] [place] [address] 00735 GLUCOSE JUNIOR Negative Normal NEG [facility] Comment on above: Performed By: #### 3 094-0, 09733-7, 0, 2028-06, HIGH WORKER, 2951- 2, 2777-1, 3084-1, 273-8 #### [facility] ([id number]) [address] [facility], [address] [place] [address] #### CITACU #### [facility] ([id number]) [address] [place] [address] 56219 KETONES JUNIOR Trace Abnormal NEG [facility] Comment on above: Performed By: #### 3 094-0, 19098-7, 0, 2028-06, HIGH WORKER, 2951- 2, 2777-1, 3084-1, 2731-8 #### [facility] ([id number]) [address], [address] [place] [address] #### CITACU #### [facility] ([id number]) [address] [place] [address] 91432 LEUKOCYTE ESTERASE JUNIOR Negative Normal NEG [facility] Comment on above: Performed By: #### 3 094-0, 35642-0, , 2028-06, HIGH WORKER, 2951- 2, 2777-1, 3084-1, 2731-8 #### [facility] ([id number]) [address], [address] [place] [address] #### CITACU #### [facility] ([id number]) [address] [place] [address] 21838 NITRITE JUNIOR Negative Normal NEG [facility] Comment on above: Performed By: #### 3 094-0, 99554-6, , 2028-06, HIGH WORKER, 2951- 2, 2777-1, 3084-1, 2731-8 #### [facility] ([id number]) [address], [address] [place] [address] #### CITACU #### [facility] ([id number]) [address] [place] [address] 24754 PH JUNIOR 6.0 Normal 5.0-8.5 [facility] Comment on above: Performed By: #### 3 094-0, 39339-0, 0, 2028-06, HIGH WORKER, 2951- 2, 2777-1, 3084-1, 2731-8 #### [facility] ([id number]) [address], [address] [place] [address] #### CITACU #### [facility] ([id number]) [address] [place] [address] 99163 PROTEIN JUNIOR 30 mg/dL Abnormal NEG [facility] Comment on above: Performed By: #### 3 094-0, 65561-1, 2074-0, 2028-06, HIGH WORKER, 2951- 2, 2777-1, 3084-1, 2731-8 #### [facility] ([id number]) [address] [facility], [address] [place] [address] #### CITACU #### [facility] ([id number]) [address] [place] [address] 31227 SPECIFIC GRAVITY JUNIOR >=1.030 Normal 1.003-1.035 [facility] Comment on above: Performed By: #### 3 094-0, 31104-3, 0, 2028-06, HIGH WORKER, 2951- 2, 2777-1, 3084-1, 2731-8 #### [facility] ([id number]) [address] [facility], [address] [place] [address] #### CITACU #### [facility] ([id number]) [address] [place] [address] 54948 UROBILINOGEN JUNIOR 1.0 eu/dL Normal <1.1 [facility] Comment on above: Performed By: #### 3 094-0, 24268-3, 2074-0, 2028-06, HIGH WORKER, 2951- 2, 2777-1, 3084-1, 2731-8 #### [facility] ([id number]) [address] [facility], [address] [place] [address] #### CITACU #### [facility] ([id number]) [address] [place] [address] 97661 XR ABDOMEN AP 1 VWon 025 XR [...] Jaxon Merrill on 12/08/2024 6:44 PM Normal [facility] 12-05-2024 Pain Medicine Medical [address] [address] CC: No chief complaint on file. SUBJECTIVE: [...] Prostate cancer Paternal Grandfather Cancer Father Tye Polon Cancer Sister January Dayanara Physical Exam Alert and oriented Non labored [...] this note were generated using voice recognition [employer] dictation software. Although every effort was made to ensure the accuracy of this automated yardage caller, some errors in yardage caller may have occurred. Normal [facility] NURSNOTEon 12-05-2024 NURSNOTE Interventional Pain Management [...] Constant/continuous Pain Interventions: Medication (See MAR) Normal [facility] Orders Onlyon 12-05-2024 Orders Only [id number] Madyson Moore 1980 F Date Provider Department Center 12/05/2024 170-RUKHSANA MILLER MP PAIN Medical [facility]avi Family History Problem Relation Age of Onset Brain cancer Mother Breast cancer Sister Kidney cancer Maternal Grandmother Prostate cancer Paternal Grandfather Cancer Father Cancer Sister Family Status - Relation Status Age at Mother Sister Maternal Grandmother Paternal Grandfather Father Sister Normal [facility] Orders Onlyon 12-04-2024 Orders Only [id number] Madyson Moore ma 1980 F Date Provider Department Center 12/04/2024 [id number] MOE MP PAIN Medical [facility] Family History Problem Relation Age of Onset Brain cancer Mother Breast cancer Sister Kidney cancer Maternal Grandmother Prostate cancer Paternal Grandfather Cancer Father Cancer Sister Family Status - Relation Status Age at Mother Sister Maternal Grandmother Paternal Grandfather Father Sister Normal [facility] Refillon 12-04-2024 Refill [id number] Madyson Moore ma 1980 Date Provider Department Center 12/04/2024 RUKHSANA ESPINOZA MP PAIN Medical [facility] Family History Problem Relation Age of Onset Brain cancer Mother Breast cancer Sister Kidney cancer Maternal Grandmother Prostate cancer Paternal Grandfather Cancer Father Cancer Sister Family Status - Relation Status Age at Mother Sister Maternal Grandmother Paternal Grandfather Father Sister Reason for Visit and Comments: Med Refill [[id number]] Normal [facility] Reminderson 10-23-2024 Reminders Reminders From: Maggie [...] yr f/u w/ DONAVON w/ [facility]. Normal [facility] Follow-Upon 10-19-2024 Follow-Up [id number] Jannie Moorenicole ma 1980 F Date Provider Department Center 10/19/2024 RUKHSANA ESPINOZA MP PAIN Medical [facility]avi Family History Problem Relation Age of Onset Brain cancer Mother Breast cancer Sister Kidney cancer Maternal Grandmother Prostate cancer Paternal Grandfather Cancer Father Cancer Sister Family Status - Relation Status Age at Mother Sister Maternal Grandmother Paternal Grandfather Father Sister Level of Service:18740 MT OFFICE/OUTPATIENT ESTABLISHED LOW MDM 20 MIN Reason for Visit and Comments: Med Management [[id number]] - No bottles for pill count Patient educated on bringing bottles to every visit Follow-up [[id number]] - Left knee pain Normal [facility] Orders Onlyon 10-18-2024 Orders Only [id number] LudyMadyson tilley ma 1980 F Date Provider Department Center 10/18/2024 [id number], NADINE MP PAIN Medical [facility] Family History Problem Relation Age of Onset Brain cancer Mother Breast cancer Sister Kidney cancer Maternal Grandmother Prostate cancer Paternal Grandfather Cancer Father Cancer Sister Family Status - Relation Status Age at Mother Sister Maternal Grandmother Paternal Grandfather Father Sister Normal [facility] Refillon 10-07-2024 Refill [id number] TeresaMadyson ma 1980 F Date Provider Department Center 10/07/2024 RUKHSANA ESPINOZA MP PAIN Medical [facility] Family History Problem Relation Age of Onset Brain cancer Mother Breast cancer Sister Kidney cancer Maternal Grandmother Prostate cancer Paternal Grandfather Cancer Father Cancer Sister Family Status - Relation Status Age at Mother Sister Maternal Grandmother Paternal Grandfather Father Sister Reason for Visit and Comments: Med Refill [[id number]] Normal [facility] Orders Onlyon 09-12-2024 Orders Only [id number] TeresaMadyson ma 1980 F Date Provider Department Center 09/12/2024 RUKHSANA ESPINOZA MP PAIN Medical [facility]avi Family History Problem Relation Age of Onset Brain cancer Mother Breast cancer Sister Kidney cancer Maternal Grandmother Prostate cancer Paternal Grandfather Cancer Father Cancer Sister Family Status - Relation Status Age at Mother Sister Maternal Grandmother Paternal Grandfather Father Sister Normal [facility] Refillon 08-10-2024 Refill [id number] TeresaJannieat ma 1980 F Date Provider Department Center 08/10/2024 RUKHSANA ESPINOZA MP PAIN Medical [facility] Family History Problem Relation Age of Onset Brain cancer Mother Breast cancer Sister Kidney cancer Maternal Grandmother Prostate cancer Paternal Grandfather Cancer Father Cancer Sister Family Status - Relation Status Age at Mother Sister Maternal Grandmother Paternal Grandfather Father Sister Reason for Visit and Comments: Med Refill [[id number]] Normal [facility] CBC AND AUTO DIFFon 08-09-20 24 ABSOLUTE BASOPHIL 0.0 X10E9/L Normal 0.0-0.2 [facility] Comment on above: Performed By: #### 3 094-0, 37094-9, 0, 2028-06, HIGH WORKER, 2951- 2, 2777-1, 3084-1, 2731-8 #### [facility] ([id number]) [address] [facility], [address] [place] [address] #### CITACU #### [facility] ([id number]) [address] [place] [address] 20828 ABSOLUTE NEUTROPHIL 2.5 X10E9/L Normal 1.5-6.6 [facility] Comment on above: Performed By: #### 3 094-0, 53806-0, , 2028-06, HIGH WORKER, 2951- 2, 2777-1, 3084-1, 2731-8 #### [facility] ([id number]) [address] [facility], [address] [place] [address] #### CITACU #### [facility] ([id number]) [address] [place] [address] 84184 Basophils/100 WBC (Bld) 0.4 % Normal [facility] Comment on above: Performed By: #### 3 094-0, 51575-2, 2074-0, 2028-06, HIGH WORKER, 2951- 2, 2777-1, 3084-1, 2731-8 #### [facility] ([id number]) [address] [place] [address], [address] [place] [address] #### CITACU #### [facility] ([id number]) [address] [place] [address] 98292 Eosinophils (Bld) [#/Vol] 0.1 10*3/uL Normal 0.0-0.4 [facility] Comment on above: Performed By: #### 3 094-0, 55282-8, , 2028-06, HIGH WORKER, 2951- 2, 2777-1, 3084-1, 273-8 #### [facility] ([id number]) [address], [address] [place] [address] #### CITACU #### [facility] ([id number]) [address] [place] [address] 29714 Eosinophils/100 WBC (Bld) 1.3 % Normal [facility] Comment on above: Performed By: #### 3 094-0, 49742-1, , 2028-06, HIGH WORKER, 2951- 2, 2777-1, 3084-1, 273-8 #### [facility] ([id number]) [address], [address] [place] [address] #### CITACU #### [facility] ([id number]) [address] [place] [address] 38156 Erythrocyte distribution width (RBC) [Ratio] 14.2 % Normal 11.5-15.0 [facility] Comment on above: Performed By: #### 3 094-0, 99936-0, , 2028-06, HIGH WORKER, 2951- 2, 2777-1, 3084-1, 273-8 #### [facility] ([id number]) [address], [address] [place] [address] #### CITACU #### [facility] ([id number]) [address] [place] [address] 62106 Hematocrit (Bld) [Volume fraction] 34.3 % Low 35-47 [facility] Comment on above: Performed By: #### 3 094-0, 56600-6, 2074-0, 2028-06, HIGH WORKER, 2951- 2, 2777-1, 3084-1, 273-8 #### [facility] ([id number]) [address], [address] [place] [address] #### CITACU #### [facility] ([id number]) [address] [place] [address] 90373 Hemoglobin (Bld) [Mass/Vol] 11.3 g/dL Low 11.7-15.5 [facility] Comment on above: Performed By: #### 3 094-0, 93178-6, 0, 2028-06, HIGH WORKER, 2951- 2, 2777-1, 3084-1, 273-8 #### [facility] ([id number]) [address] [facility], [address] [place] [address] #### CITACU #### [facility] ([id number]) [address] [place] [address] 83397 Lymphocytes (Bld) [#/Vol] 2.6 10*3/uL Normal 1.0-3.5 [facility] Comment on above: Performed By: #### 3 094-0, 90114-3, 0, 2028-06, HIGH WORKER, 2951- 2, 2777-1, 3084-1, 273-8 #### [facility] ([id number]) [address] [facility], [address] [place] [address] #### CITACU #### [facility] ([id number]) [address] [place] [address] 00860 Lymphocytes/100 WBC (Bld) 45.9 % Normal [facility] Comment on above: Performed By: #### 3 094-0, 27169-2, 2074-0, 2028-06, HIGH WORKER, 2951- 2, 2777-1, 3084-1, 273-8 #### [facility] ([id number]) [address], [address] [place] [address] #### CITACU #### [facility] ([id number]) [address] [place] [address] 47291 MCH (RBC) [Entitic mass] 27.4 pg Normal 27-34 [facility] Comment on above: Performed By: #### 3 094-0, 74874-8, 0, 2028-06, HIGH WORKER, 2951- 2, 2777-1, 3084-1, 8 #### [facility] ([id number]) [address], [address] [place] [address] #### CITACU #### [facility] ([id number]) [address] [place] [address] 91494 MCHC (RBC) [Mass/Vol] 33.0 g/dL Normal 32-36 [facility] Comment on above: Performed By: #### 3 094-0, 35186-3, 0, 2028-06, HIGH WORKER, 2951- 2, 2777-1, 308-1, 2731-05 #### [facility] ([id number]) [address], [address] [place] [address] #### CITACU #### [facility] ([id number]) [address] [place] [address] 13819 MCV (RBC) [Entitic vol] 83 fL Normal 80-100 [facility] Comment on above: Performed By: #### 3 094-0, 30465-7, 0, 2028-06, HIGH WORKER, 2951- 2, 2777-1, 3084-1, 8 #### [facility] ([id number]) [address], [address] [place] [address] #### CITACU #### [facility] ([id number]) [address] [place] [address] 02275 Monocytes (Bld) [#/Vol] 0.4 10*3/uL Normal 0-0.9 [facility] Comment on above: Performed By: #### 3 094-0, 73636-3, 2074-0, 2028-06, HIGH WORKER, 2951- 2, 2777-1, 3084-1, 2731-8 #### [facility] ([id number]) [address], [address] [place] [address] #### CITACU #### [facility] ([id number]) [address] [place] [address] 84752 Monocytes/100 WBC (Bld) 6.8 % Normal [facility] Comment on above: Performed By: #### 3 094-0, 25673-8, 0, 2028-06, HIGH WORKER, 2951- 2, 2777-1, 3084-1, 2731-8 #### [facility] ([id number]) [address] [facility], [address] [place] [address] #### CITACU #### [facility] ([id number]) [address] [place] [address] 01381 Neutrophils/100 WBC (Bld) 45.6 % Normal [facility] Comment on above: Performed By: #### 3 094-0, 62109-2, 0, 2028-06, HIGH WORKER, 2951- 2, 2777-1, 3084-1, 2731-8 #### [facility] ([id number]) [address], [address] [place] [address] #### CITACU #### [facility] ([id number]) [address] [place] [address] 24356 Platelet mean volume (Bld) [Entitic vol] 7.3 fL Normal 7-12 [facility] Comment on above: Performed By: #### 3 094-0, 12045-8, , 2028-06, HIGH WORKER, 2951- 2, 2777-1, 3084-1, 2731-8 #### [facility] ([id number]) [address], [address] [place] [address] #### CITACU #### [facility] ([id number]) [address] [place] [address] 44195 Platelets (Bld) [#/Vol] 253 10*3/uL Normal 150-450 [facility] Comment on above: Performed By: #### 3 094-0, 07970-7, , 2028-06, HIGH WORKER, 2951- 2, 2777-1, 3084-1, 2731-8 #### [facility] ([id number]) [address] [facility], [address] [place] [address] #### CITACU #### [facility] ([id number]) [address] [place] [address] 97579 RBC COUNT 4.12 X10E12/L Normal 3.80-5.20 [facility] Comment on above: Performed By: #### 3 094-0, 54622-1, , 2028-06, HIGH WORKER, 2951- 2, 2777-1, 3084-1, 2731-8 #### [facility] ([id number]) [address] [facility], [address] [place] [address] #### CITACU #### [facility] ([id number]) [address] [place] [address] 29621 WBC (Bld) [#/Vol] 5.6 10*3/uL Normal 4.0-11.0 [facility] Comment on above: Performed By: #### 3 094-0, 47237-5, , 2028-06, HIGH WORKER, 2951- 2, 2777-1, 3084-1, 2731-8 #### [facility] ([id number]) [address] [facility], [address] [place] [address] #### CITACU #### [facility] ([id number]) [address] [place] [address] 17002 COMPREHENSIVE METABOLIC PANE [facility] 08-09-2024 Albumin [Mass/Vol] 4.3 g/dL Normal 3.2-5.3 [facility] Comment on above: Performed By: #### 3 094-0, 42120-7, , 2028-06, HIGH WORKER, 2951- 2, 2777-1, 3084-1, 2731-8 #### [facility] ([id number]) [address] [facility], [address] [place] [address] #### CITACU #### [facility] ([id number]) [address] [place] [address] 73857 ALP [Catalytic activity/Vol] 93 U/L Normal 39-130 [facility] Comment on above: Performed By: #### 3 094-0, 49727-7, , 2028-06, HIGH WORKER, 2951- 2, 2777-1, 3084-1, 2731-8 #### [facility] ([id number]) [address] [facility], [address] [place] [address] #### CITACU #### [facility] ([id number]) [address] [place] [address] 99468 ALT [Catalytic activity/Vol] 14 U/L Normal 0-31 [facility] Comment on above: Performed By: #### 3 094-0, 99969-4, 0, 2028-06, HIGH WORKER, 2951- 2, 2777-1, 3084-1, 2731-8 #### [facility] ([id number]) [address] [facility], [address] [place] [address] #### CITACU #### [facility] ([id number]) [address] [place] [address] 19394 Anion gap [Moles/Vol] 8 mmol/L Normal 5-15 [facility] Comment on above: Performed By: #### 3 094-0, 98543-2, 0, 2028-06, HIGH WORKER, 2951- 2, 2777-1, 3084-1, 2731-8 #### [facility] ([id number]) [address] [facility], [address] [place] [address] #### CITACU #### [facility] ([id number]) [address] [place] [address] 99350 AST [Catalytic activity/Vol] 14 U/L Normal 0-41 [facility] Comment on above: Performed By: #### 3 094-0, 90728-5, 0, 2028-06, HIGH WORKER, 2951- 2, 2777-1, 3084-1, 2731-8 #### [facility] ([id number]) [address] [facility], [address] [place] [address] #### CITACU #### [facility] ([id number]) [address] [place] [address] 10601 Bilirubin [Mass/Vol] 0.3 mg/dL Normal 0.3-1.2 [facility] Comment on above: Performed By: #### 3 094-0, 78153-8, 2074-0, 2028-06, HIGH WORKER, 2951- 2, 2777-1, 3084-1, 2731-8 #### [facility] ([id number]) [address] [facility], [address] [place] [address] #### CITACU #### [facility] ([id number]) [address] [place] [address] 25938 Calcium [Mass/Vol] 8.8 mg/dL Normal 8.5-10.5 [facility] Comment on above: Performed By: #### 3 094-0, 41640-4, 0, 2028-06, HIGH WORKER, 2951- 2, 2777-1, 3084-1, 2731-8 #### [facility] ([id number]) [address] [facility], [address] [place] [address] #### [place]U #### [facility] ([id number]) [address] [place] [address] 07168 Chloride [Moles/Vol] 105 mmol/L Normal 98-109 [facility] Comment on above: Performed By: #### 3 094-0, 81813-2, , 2028-06, HIGH WORKER, 2951- 2, 2777-1, 3084-1, 2731-8 #### [facility] ([id number]) [address] [facility], [address] [place] [address] #### [place]U #### [facility] ([id number]) [address] [place] [address] 44120 CO2 [Moles/Vol] 26 mmol/L Normal 22-32 [facility] Comment on above: Performed By: #### 3 094-0, 23629-2, , 2028-06, HIGH WORKER, 2951- 2, 2777-1, 3084-1, 2731-8 #### [facility] ([id number]) [address] [facility], [address] [place] [address] #### [place]U #### [facility] ([id number]) [address] [place] [address] 11862 Creatinine [Mass/Vol] 0.66 mg/dL Normal 0.40-1.00 [facility] Comment on above: Result Comment: METH OD TRACEABLE TO IDMS STANDARD Performed By: #### 3 094-0, 49175-0, 0, 2028-06, HIGH WORKER, 2951-2, 2777-1, 3084-1, 2731-8 #### [facility] ([id number]) [address], [address] [place] [address] #### [place]U #### [facility] ([id number]) [address] [place] [address] 14179 eGFR (CKD-EPI) NON-RACE DEPENDENT >90 Normal >59 [facility] Comment on above: Result Comment: Reported eGFR is based on the CKD-EPI 2020 equation that does not use a race coefficient. Performed By: #### 3 094-0, 16430-9, 0, 2028-06, HIGH WORKER, 2951-2, 2777-1, 3084-1, 2731-8 #### [facility] [facility] ([id number]) [address], [address] [place] [address] #### CITACU #### [facility] ([id number]) [address] [place] [address] 34065 Glucose [Mass/Vol] 100 mg/dL High 65-99 [facility] Comment on above: Performed By: #### 3 094-0, 75474-7, 0, 2028-06, HIGH WORKER, 2951- 2, 2777-1, 3084-1, 2731-8 #### [facility] ([id number]) [address], [address] [place] [address] #### CITACU #### [facility] ([id number]) [address] [place] [address] 12624 Potassium [Moles/Vol] 3.8 mmol/L Normal 3.5-5.0 [facility] Comment on above: Performed By: #### 3 094-0, 25312-5, 2074-0, 2028-06, HIGH WORKER, 2951- 2, 2777-1, 3084-1, 2731-8 #### [facility] ([id number]) [address], [address] [place] [address] #### CITACU #### [facility] ([id number]) [address] [place] [address] 34930 Protein [Mass/Vol] 7.2 g/dL Normal 6.0-8.0 [facility] Comment on above: Performed By: #### 3 094-0, 98714-7, 0, 2028-06, HIGH WORKER, 2951- 2, 2777-1, 3084-1, 2731-8 #### [facility] ([id number]) [address] [facility], [address] [place] [address] #### CITACU #### [facility] ([id number]) [address] [place] [address] 84073 Sodium [Moles/Vol] 139 mmol/L Normal 134-146 [facility] Comment on above: Performed By: #### 3 094-0, 39522-6, 0, 2028-06, HIGH WORKER, 2951- 2, 2777-1, 3084-1, 2731-8 #### [facility] ([id number]) [address] [facility], [address] [place] [address] #### CITACU #### [facility] ([id number]) [address] [place] [address] 89721 Urea nitrogen [Mass/Vol] 18 mg/dL Normal 5-23 [facility] Comment on above: Performed By: #### 3 094-0, 02658-8, 2074-0, 2028-06, HIGH WORKER, 2951- 2, 2777-1, 3084-1, 2731-8 #### [facility] ([id number]) [address] [facility], [address] [place] [address] #### CITACU #### [facility] ([id number]) [address] [place] [address], [place] [address] CT ABDOMEN AND PELVIS WO CON Ton [...] Christelle Abdi DO on 08/09/2024 1:58 AM Sathya Garcia MD have personally reviewed the image(s) and agree with and/or edited the report Finalized by Sathya Gates MD on 08/09/2024 2:08 AM Normal [facility] URN MACROSCOPIC NURon 2023 BILIRUBIN JUNIOR Negative Normal NEG [facility] Comment on above: Performed By: #### 3 094-0, 60365-4, , 2028-06, HIGH WORKER, 2951- 2, 2777-1, 3084-1, 273-8 #### [facility] ([id number]) [address], [address] [place] [address] #### CITACU #### [facility] ([id number]) [address] [place] [address] BLOOD/HGB JUNIOR Large Abnormal NEG [facility] Comment on above: Performed By: #### 3 094-0, 32248-7, , 2028-06, HIGH WORKER, 2951- 2, 2777-1, 3084-1, 273-8 #### [facility] ([id number]) [address], [address] [place] [address] #### CITACU #### [facility] ([id number]) [address] [place] [address] 90196 GLUCOSE JUNIOR Negative Normal NEG [facility] Comment on above: Performed By: #### 3 094-0, 77739-5, , 2028-06, HIGH WORKER, 2951- 2, 2777-1, 3084-1, 273-8 #### [facility] ([id number]) [address], [address] [place] [address] #### CITACU #### [facility] ([id number]) [address] [place] [address] 08168 KETONES JUNIOR Negative Normal NEG [facility] Comment on above: Performed By: #### 3 094-0, 55740-6, , 2028-06, HIGH WORKER, 2951- 2, 2777-1, 3084-1, 273-8 #### [facility] ([id number]) [address], [address] [place] [address] #### CITACU #### [facility] ([id number]) [address] [place] [address] 09780 LEUKOCYTE ESTERASE UJNIOR Trace Abnormal NEG [facility] Comment on above: Performed By: #### 3 094-0, 26407-5, 0, 2028-06, HIGH WORKER, 2951- 2, 2777-1, 3084-1, 2731-8 #### [facility] ([id number]) [address] [facility], [address] [place] [address] #### CITACU #### [facility] ([id number]) [address] [place] [address] 04729 NITRITE JUNIOR Negative Normal NEG [facility] Comment on above: Performed By: #### 3 094-0, 63940-5, 0, 2028-06, HIGH WORKER, 2951- 2, 2777-1, 3084-1, 273-8 #### [facility] ([id number]) [address] [facility], [address] [place] [address] #### CITACU #### [facility] ([id number]) [address] [place] [address] 90449 PH JUNIOR 5.5 Normal 5.0-8.5 [facility] Comment on above: Performed By: #### 3 094-0, 07222-0, 0, 2028-06, HIGH WORKER, 2951- 2, 2777-1, 3084-1, 2731-8 #### [facility] ([id number]) [address], [address] [place] [address] #### CITACU #### [facility] ([id number]) [address] [place] [address] 58507 PROTEIN JUNIOR 30 mg/dL Abnormal NEG [facility] Comment on above: Performed By: #### 3 094-0, 37185-5, 0, 2028-06, HIGH WORKER, 2951- 2, 2777-1, 3084-1, 2731-8 #### [facility] ([id number]) [address] [facility], [address] [place] [address] #### CITACU #### [facility] ([id number]) [address] [place] [address] 39514 SPECIFIC GRAVITY JUNIOR >=1.030 Normal 1.003-1.035 [facility] Comment on above: Performed By: #### 3 094-0, 94691-0, , 2028-06, HIGH WORKER, 2951- 2, 2777-1, 3084-1, 2731-8 #### [facility] ([id number]) [address] [place] [address], [address] [place] [address] #### CITACU #### [facility] ([id number]) [address] [place] [address] 49738 UROBILINOGEN JUNIOR 1.0 eu/dL Normal <1.1 [facility] Comment on above: Performed By: #### 3 094-0, 25314-6, , 2028-06, HIGH WORKER, 2951- 2, 2777-1, 3084-1, 2731-8 #### [facility] ([id number]) [address] [place] [address], [address] [place] [address] #### CITACU #### [facility] ([id number]) [address] [place] [address] 26936 Follow-Upon 07-24-2024 Follow-Up [id number] Mdayson Moore 1980 F Date Provider Department Center 07/24/2024 MONIQUE COON MP ORTHO MPORTHO Family History Problem Relation Age of Onset Brain cancer Mother Breast cancer Sister Kidney cancer Maternal Grandmother Prostate cancer Paternal Grandfather Cancer Father Cancer Sister Family Status - Relation Status Age at Mother Sister Maternal Grandmother Paternal Grandfather Father Sister Level of Service:51908 MT OFFICE/OUTPATIENT ESTABLISHED MOD MDM 30 MIN (GC,57) Reason for Visit and Comments: New Patient [632] - History of Left knee revision that was performed on 06/01/22 , initial TKA in 10/[address] . Here today with chronic anterior knee pain since surgery. Follow-up [080880] - History of Left knee revision that was performed on 06/01/22 , initial TKA in 10/[address] . Here today with chronic anterior knee pain since surgery. Normal [facility] Follow-Upon 07-19-2024 Follow-Up [id number] Madyson Moore ma 1980 F Date Provider Department Center 07/19/2024 170RUKHSANA YADAV PAIN Medical [facility]avi Family History Problem Relation Age of Onset Brain cancer Mother Breast cancer Sister Kidney cancer Maternal Grandmother Prostate cancer Paternal Grandfather Cancer Father Cancer Sister Family Status - Relation Status Age at Mother Sister Maternal Grandmother Paternal Grandfather Father Sister Level of Service:55351 MT OFFICE/OUTPATIENT ESTABLISHED LOW MDM 20 MIN Reason for Visit and Comments: Med Management [[id number]] - Refill Hydrocodone-acetaminophen Pill count Med Refill [[id number]] - Gabapentin Normal [facility] Surgical Pathology Reporton 07-17-2024 Surgical Pathology Report (NOTE) Path Number: [id number] -- Diagnosis -- RIGHT PAROTID GLAND, 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 COMMENT: FOR FOOD QUALITY TESTER, THE SLIDES WERE REVIEWED BY OTHER PATHOLOGISTS [...] tissue surrounding the parotid gland. Processing Lab: [address] [address] Interpretation Performed at [address] [address] SURGICAL PATHOLOGY CONSULTATION Patient Name: JANNIE MOOREJAIRO [facility]izLui [facility] Rec: [id number] [facility] ANATOMIC PATHOLOGY [address] [place] [address]. [place] [address] Normal [facility] C-REACTIVE PROTEINon 024 C REACTIVE PROTEIN (MG/L) IN SER/PLAS 1.7 mg/L Normal 0.0-7.0 [facility] Comment on above: Performed By: #### L AB149 ####[facility] (BEAKER)[address] [place] [address] Labon 07-14-2024 Lab [id number] Madyson Moore 1980 F Date Provider Department Center 07/14/2024 2245-[facility] LAB RESOURCE [facility] [place] [facility] Family History Problem Relation Age of Onset Brain cancer Mother Breast cancer Sister Kidney cancer Maternal Grandmother Prostate cancer Paternal Grandfather Cancer Father Cancer Sister Family Status - Relation Status Age at Mother Sister Maternal Grandmother Paternal Grandfather Father Sister Normal [facility] SEDIMENTATION RATEon 024 SEDIMENTATION RATE, ERYTHROCYTE 20 mm/hr Normal <=20 [facility] Comment on above: Performed By: #### L AB322 ####[facility] (VINCE)[address] [place] [address] Orders Onlyon 07-04-2024 Orders Only [id number] Jannie Mooreat ma 1980 F Date Provider Department Center 07/04/2024 91275-ZHXCRMIGDALIA MOE MP PAIN Medical [facility]avi Family History Problem Relation Age of Onset Brain cancer Mother Breast cancer Sister Kidney cancer Maternal Grandmother Prostate cancer Paternal Grandfather Cancer Father Cancer Sister Family Status - Relation Status Age at Mother Sister Maternal Grandmother Paternal Grandfather Father Sister Normal [facility] Orders Only [id number] Jannie Mooreat ma 1980 F Date Provider Department Center 07/04/2024 RUKHSANA ESPINOZA MP PAIN Medical [facility]avi Family History Problem Relation Age of Onset Brain cancer Mother Breast cancer Sister Kidney cancer Maternal Grandmother Prostate cancer Paternal Grandfather Cancer Father Cancer Sister Family Status - Relation Status Age at Mother Sister Maternal Grandmother Paternal Grandfather Father Sister Normal [facility] Refillon 07-03-2024 Refill [id number] Jannie Mooreat ma 1980 F Date Provider Department Center 07/03/2024 RUKHSANA ESPINOZA MP PAIN Medical [facility] Family History Problem Relation Age of Onset Brain cancer Mother Breast cancer Sister Kidney cancer Maternal Grandmother Prostate cancer Paternal Grandfather Cancer Father Cancer Sister Family Status - Relation Status Age at Mother Sister Maternal Grandmother Paternal Grandfather Father Sister Reason for Visit and Comments: Med Refill [[id number]] Normal [facility] Refillon 06-07-2024 Refill [id number] Jannie Mooreat ma 1980 F Date Provider Department Center 06/07/2024 RUKHSANA ESPINOZA MP PAIN Medical [facility] Family History Problem Relation Age of Onset Brain cancer Mother Breast cancer Sister Kidney cancer Maternal Grandmother Prostate cancer Paternal Grandfather Cancer Father Cancer Sister Family Status - Relation Status Age at Mother Sister Maternal Grandmother Paternal Grandfather Father Sister Reason for Visit and Comments: Med Refill [[id number]] Normal [facility] CT KNEE LEFT WO IV CONTRASTo [...] prior surgery. Electronically signed: Sathya Christianson. Aiyana Vldtradha Invalid Interpretation Code [facility] Office Visiton 06-01-2024 Follow-up visit [id number] Madyson Moore 1980 F Date Provider Department Center 06/01/2024 499-KHRIS BUCHANAN MP ORTHO MPORTHO Family History Problem Relation Age of Onset Brain cancer Mother Breast cancer Sister Kidney cancer Maternal Grandmother Prostate cancer Paternal Grandfather Cancer Father Cancer Sister Family Status - Relation Status Age at Mother Sister Maternal Grandmother Paternal Grandfather Father Sister Level of Service:98919 MT OFFICE/OUTPATIENT ESTABLISHED LOW MDM 20 MIN Reason for Visit and Comments: New Patient [632] - Patient had 2nd knee replacement about a year ago, since then patient has been having increased pain and swelling, patient does see pain management and has stimulator in back Normal [facility] Refillon 05-09-2024 Refill [id number] Madyson Moore 1980 F Date Provider Department Center 05/09/2024 170-RUKHSANA MILLER MP PAIN Medical [facility] Family History Problem Relation Age of Onset Brain cancer Mother Breast cancer Sister Kidney cancer Maternal Grandmother Prostate cancer Paternal Grandfather Cancer Father Cancer Sister Family Status - Relation Status Age at Mother Sister Maternal Grandmother Paternal Grandfather Father Sister Reason for Visit and Comments: Med Refill [[id number]] Normal [facility] Refillon 04-07-2024 Refill [id number] Madyson Moore ma 1980 F Date Provider Department Center 04/07/2024 Abby-RUKHSANA MILLER PAIN Medical [facility] Family History Problem Relation Age of Onset Brain cancer Mother Breast cancer Sister Kidney cancer Maternal Grandmother Prostate cancer Paternal Grandfather Cancer Father Cancer Sister Family Status - Relation Status Age at Mother Sister Maternal Grandmother Paternal Grandfather Father Sister Reason for Visit and Comments: Med Refill [[id number]] Normal [facility] Nico 03-22-2024 L Specimen: [id number] Received: 03/23/24 Status: SOUT Req Num: [id number] Spec Type: Cytology Subm Dr: Harry Pettit MD Tissues: A FNA SLIDES NOPATH (RT PAROTID MASS) Procedures: HE/2, p63, Cyto Int and Re, p40, PAPSTN/9 Age/ Patient Sex Location Account Attending Physician Elvi Moore L 43/F LABELL [id number] Harry Pettit MD SPEC NUM: [id number] RECD: 03/23/24 STATUS: JOHNATHON REQ NUM: [id number] JHONATAN: 03/22/24 DR: Harry Pettit MD ENTERED: 03/23/24 [facility] DR: Leann Amaya MD SPEC TYPE: Cytology DEPT: [facility] ENTERED BY: [id number] RECV BY: [id number] ORDERED: HE/2, p63, Cyto Int and Re, [...] deeper level of sections for IHC CPT: 69320, 08520 Addendum Signed (signature on file) Luis F [...] [id number] Received: 03/23/24 Status: JOHNATHON Damon Num: [id number] Spec Type: Cytology Subm Dr: Harry Pettit MD Tissues: A FNA SLIDES NOPATH (RT PAROTID MASS) Procedures: HE/2, p63, Cyto Int and Re, p40, PAPSTN/9 Patient: Elvi Moore [id number] (Continued) Specimen: [id number] Received: 03/23/24 (Continued) Pathological Diagnosis (Continued) Signed (signature on file) Luis F Roldan MD 03/29/24 1124 Specimen: [id number] Received: 03/23/24 Status: JOHNATHON Gomezmoe Num: [id number] Spec Type: Cytology Subm Dr: Harry Pettit MD Tissues: A FNA SLIDES NOPATH (RT PAROTID MASS) Procedures: HE/2, p63, Cyto Int and Re, p40, PAPSTN/9 Patient: Elvi Moore [id number] (Continued) Specimen: [id number] Received: 03/23/24 (Continued) Pathological Diagnosis (Continued) ThinPrep [...] slides to be stained pap for microscopic examination.(CC/ut) CPT Codes 86025 17092 Specimen: [id number] Received: 03/23/24 Status: JOHNATHON Damon Num: [id number] Spec Type: Cytology Subm Dr: Harry Pettit MD Tissues: A FNA SLIDES NOPATH (RT PAROTID MASS) Procedures: HE/2, p63, Cyto Int and Re, p40, PAPSTN/9 Patient: Jannie Mooreajiro Paiz [id number] (Continued) Signed (signature on file) Walker-Jj Roldan MD 03/29/24 1124 Normal [facility] Follow-Upon 03-17-2024 Follow-Up [id number] Madyson Moore ma 1980 F Date Provider Department Center 03/17/2024 170-RUKHSANA MILLER MP PAIN Medical [facility]avi Family History Problem Relation Age of Onset Brain cancer Mother Breast cancer Sister Kidney cancer Maternal Grandmother Prostate cancer Paternal Grandfather Cancer Father Cancer Sister Family Status - Relation Status Age at Mother Sister Maternal Grandmother Paternal Grandfather Father Sister Level of Service:96337 MT OFFICE/OUTPATIENT ESTABLISHED LOW MDM 20 MIN Reason for Visit and Comments: Knee Pain [797440] - Left knee pain Normal [facility] Screenson 03-08-2024 Screens [id number] Normal [facility] Patient Educationon 03-07-20 Patient Education Nephrology Dietary [...] ? 8 oz (237 mL) of milk, ebwwtbk-vbxhmywipvux-ejks y milk, and calcium-fortifiedfruit juice. Calcium-fortified means [...] Spinach (cooked), rhubarb, beets, sweet potatoes, and Salvadorean chard. ? Peanuts. ? Potato chips, montserratian fries, and baked potatoes with skin on. ? Nuts and nut products. ? Chocolate. ? If you regularly take a diuretic medicine, make sure to eat at least 1 or 2 servings of fruits or vegetables that are high in potassium each day. These include: ? Avocado. ? Banana. ? Page, prune, carrot, or tomato juice. ? Baked [...] fish oil, or vitamin B6. ? Take tciy-qie-vjrkaco and prescription medicines only as told by your health care provider. These include supplements. What foods sh (more content not included)... Normal [facility]2024 [facility] [id number] Normal [facility] Urology Office/Clinic Noteon 03-07-2024 Urology Office/Clinic [...] 10/12/23. Stone analysis: 60% CaOx Di, 35% [place]. 5% Phos Hydoxyl. KUB 03/03/24 [facility] - [...] Contact Information STEPH AVITIA, ELIZABETH Yi, URL [address] [facility] [place] [address] [phone] Additional Instructions: 1 yr w/ KUB Patient [...] 100 mg= 1 tab(s), Oral multivitamin, Daily [place] 325 mg-5 mg oral tablet, 1 tab(s), [...] virus vaccine, inactivated 07/29/2022 Recorded SARS-CoV-2 (COVID-19) mRNAMUL.ORD![id number] 07/29/2022 Recorded SARS-CoV-2 (COVID-19) mRNA BNT-162b2 vax 10/08/2021 Recorded SARS-CoV-2 (COVID-19) mRNA BNT-162b2 vax 01/30/2021 Recorded SARS-CoV-2 (COVID-19) mRNA BNT-162b2 vax 01/09/2021 Recorded influenza virus vaccine, inactivated 07/11/2020 R (more content not included)... Normal [facility] Comment on above: Result Comment: Elec tronically Signed By: ELIZABETH VACA PA-C\.br\Date and Time Signed: 03/07/24 16:31 EDT\.br\Electronically Co-Signed By: Kandice Hardy\.br\Date and Time Co-Signed: 03/07/24 16:30 EDT CBC AND AUTO DIFFon 03-06-20 ABSOLUTE BASOPHIL 0.0 X10E9/L Normal 0.0-0.2 [facility] Comment on above: Performed By: #### 3 094-0, 58304-9, , 2028-06, HIGH WORKER, 2951- 2, 2777-1, 3084-1, 273-8 #### [facility] ([id number]) [address], [address] [place] [address] #### CITACU #### [facility] ([id number]) [address] [place] [address] 71159 ABSOLUTE NEUTROPHIL 4.5 X10E9/L Normal 1.5-6.6 [facility] Comment on above: Performed By: #### 3 094-0, , , 2028-06, HIGH WORKER, 2951- 2, 2777-1, 3084-1, 273-8 #### [facility] ([id number]) [address], [address] [place] [address] #### CITACU #### [facility] ([id number]) [address] [place] [address] 38262 Basophils/100 WBC (Bld) 0.3 % Normal [facility] Comment on above: Performed By: #### 3 094-0, , , 2028-06, HIGH WORKER, 2951- 2, 2777-1, 3084-1, 2730-8 #### [facility] ([id number]) [address], [address] [place] [address] #### CITACU #### [facility] ([id number]) [address] [place] [address] 23620 Eosinophils (Bld) [#/Vol] 0.0 10*3/uL Normal 0.0-0.4 [facility] Comment on above: Performed By: #### 3 094-0, , , 2028-06, HIGH WORKER, 2951- 2, 2777-1, 3084-1, 2731-8 #### [facility] ([id number]) [address], [address] [place] [address] #### CITACU #### [facility] ([id number]) [address] [place] [address] 21243 Eosinophils/100 WBC (Bld) 0.6 % Normal [facility] Comment on above: Performed By: #### 3 094-0, , , 2028-06, HIGH WORKER, 2951- 2, 2777-1, 3084-1, 273-8 #### [facility] ([id number]) [address], [address] [place] [address] #### CITACU #### [facility] ([id number]) [address] [place] [address] 71345 Erythrocyte distribution width (RBC) [Ratio] 14.6 % Normal 11.5-15.0 [facility] Comment on above: Performed By: #### 3 094-0, 50856-0, , 2028-06, HIGH WORKER, 2951- 2, 2777-1, 3084-1, 273-8 #### [facility] ([id number]) [address], [address] [place] [address] #### CITACU #### [facility] ([id number]) [address] [place] [address] 42244 Hematocrit (Bld) [Volume fraction] 39.4 % Normal 35-47 [facility] Comment on above: Performed By: #### 3 094-0, 19514-6, 0, 2028-06, HIGH WORKER, 2951- 2, 2777-1, 3084-1, 2731-8 #### [facility] ([id number]) [address], [address] [place] [address] #### CITACU #### [facility] ([id number]) [address] [place] [address] 12080 Hemoglobin (Bld) [Mass/Vol] 13.1 g/dL Normal 11.7-15.5 [facility] Comment on above: Performed By: #### 3 094-0, 64845-6, 0, 2028-06, HIGH WORKER, 2951- 2, 2777-1, 3084-1, 273-8 #### [facility] ([id number]) [address], [address] [place] [address] #### CITACU #### [facility] ([id number]) [address] [place] [address] 21640 Lymphocytes (Bld) [#/Vol] 2.0 10*3/uL Normal 1.0-3.5 [facility] Comment on above: Performed By: #### 3 094-0, 88884-3, 0, 2028-06, HIGH WORKER, 2951- 2, 2777-1, 3084-1, 273-8 #### [facility] ([id number]) [address], [address] [place] [address] #### CITACU #### [facility] ([id number]) [address] [place] [address] 05528 Lymphocytes/100 WBC (Bld) 28.1 % Normal [facility] Comment on above: Performed By: #### 3 094-0, 84515-0, 0, 2028-06, HIGH WORKER, 2951- 2, 2777-1, 3084-1, 2731-8 #### [facility] ([id number]) [address], [address] [place] [address] #### CITACU #### [facility] ([id number]) [address] [place] [address] MCH (RBC) [Entitic mass] 28.2 pg Normal 27-34 [facility] Comment on above: Performed By: #### 3 094-0, 00596-3, 0, 2028-06, HIGH WORKER, 2951- 2, 2777-1, 3084-1, 2731-8 #### [facility] ([id number]) [address], [address] [place] [address] #### CITACU #### [facility] ([id number]) [address] [place] [address] 14709 MCHC (RBC) [Mass/Vol] 33.2 g/dL Normal 32-36 [facility] Comment on above: Performed By: #### 3 094-0, 52400-7, , 2028-06, HIGH WORKER, 2951- 2, 2777-1, 3084-1, 2731-8 #### [facility] ([id number]) [address], [address] [place] [address] #### CITACU #### [facility] ([id number]) [address] [place] [address] 40502 MCV (RBC) [Entitic vol] 85 fL Normal 80-100 [facility] Comment on above: Performed By: #### 3 094-0, 44634-8, 0, 2028-06, HIGH WORKER, 2951- 2, 2777-1, 3084-1, 2731-8 #### [facility] ([id number]) [address], [address] [place] [address] #### [place]U #### [facility] ([id number]) [address] [place] [address] 50239 Monocytes (Bld) [#/Vol] 0.6 10*3/uL Normal 0-0.9 [facility] Comment on above: Performed By: #### 3 094-0, 97837-7, 2074-0, 2028-06, HIGH WORKER, 2951- 2, 2777-1, 3084-1, 2731-8 #### [facility] ([id number]) [address], [address] [place] [address] #### [place]U #### [facility] ([id number]) [address] [place] [address] 07999 Monocytes/100 WBC (Bld) 8.3 % Normal [facility] Comment on above: Performed By: #### 3 094-0, 26020-5, 0, 2028-06, HIGH WORKER, 2951- 2, 2777-1, 3084-1, 2731-8 #### [facility] ([id number]) [address], [address] [place] [address] #### [place]U #### [facility] ([id number]) [address] [place] [address] 23542 Neutrophils/100 WBC (Bld) 62.7 % Normal [facility] Comment on above: Performed By: #### 3 094-0, 54490-4, 0, 2028-06, HIGH WORKER, 2951- 2, 2777-1, 3084-1, 2731-8 #### [facility] ([id number]) [address], [address] [place] [address] #### [place]U #### [facility] ([id number]) [address] [place] [address] 40718 Platelet mean volume (Bld) [Entitic vol] 8.3 fL Normal 7-12 [facility] Comment on above: Performed By: #### 3 094-0, 38629-6, 2074-0, 2028-06, HIGH WORKER, 2951- 2, 2777-1, 3084-1, 2731-8 #### [facility] ([id number]) [address], [address] [place] [address] #### [place]U #### [facility] ([id number]) [address] [place] [address] 97261 Platelets (Bld) [#/Vol] 279 10*3/uL Normal 150-450 [facility] Comment on above: Performed By: #### 3 094-0, 76641-8, , 2028-06, HIGH WORKER, 2951- 2, 2777-1, 3084-1, 273-8 #### [facility] ([id number]) [address], [address] [place] [address] #### [place] #### [facility] ([id number]) [address] [place] [address] 53236 RBC COUNT 4.63 X10E12/L Normal 3.80-5.20 [facility] Comment on above: Performed By: #### 3 094-0, 23012-1, , 2028-06, HIGH WORKER, 2951- 2, 2777-1, 3084-1, 273-8 #### [facility] ([id number]) [address], [address] [place] [address] #### [place] #### [facility] ([id number]) [address] [place] [address] 15156 WBC (Bld) [#/Vol] 7.2 10*3/uL Normal 4.0-11.0 [facility] Comment on above: Performed By: #### 3 094-0, 51168-5, , 2028-06, HIGH WORKER, 2951- 2, 2777-1, 3084-1, 2731-8 #### [facility] ([id number]) [address], [address] [place] [address] #### [place]U #### [facility] ([id number]) [address] [place] [address] 44362 COMPREHENSIVE METABOLIC PANE Nico 03-06-2024 Albumin [Mass/Vol] 4.4 g/dL Normal 3.2-5.3 [facility] Comment on above: Performed By: #### 3 094-0, 35006-8, , 2028-06, HIGH WORKER, 2951- 2, 2777-1, 3084-1, 2731-8 #### [facility] ([id number]) [address] [facility], [address] [place] [address] #### [place]U #### [facility] ([id number]) [address] [place] [address] 05566 ALP [Catalytic activity/Vol] 96 U/L Normal 39-130 [facility] Comment on above: Performed By: #### 3 094-0, 68009-7, 0, 2028-06, HIGH WORKER, 2951- 2, 2777-1, 3084-1, 2731-8 #### [facility] ([id number]) [address] [facility], [address] [place] [address] #### [place]U #### [facility] ([id number]) [address] [place] [address] 64965 ALT [Catalytic activity/Vol] 16 U/L Normal 0-31 [facility] Comment on above: Performed By: #### 3 094-0, 84271-9, 0, 2028-06, HIGH WORKER, 2951- 2, 2777-1, 3084-1, 2731-8 #### [facility] ([id number]) [address] [facility], [address] [place] [address] #### [place]U #### [facility] ([id number]) [address] [place] [address] 59990 Anion gap [Moles/Vol] 6 mmol/L Normal 5-15 [facility] Comment on above: Performed By: #### 3 094-0, 17887-7, , 2028-06, HIGH WORKER, 2951- 2, 2777-1, 3084-1, 2731-8 #### [facility] ([id number]) [address], [address] [place] [address] #### [place]U #### [facility] ([id number]) [address] [place] [address] 63796 AST [Catalytic activity/Vol] 22 U/L Normal 0-41 [facility] Comment on above: Performed By: #### 3 094-0, 08719-0, , 2028-06, HIGH WORKER, 2951- 2, 2777-1, 3084-1, 2731-8 #### [facility] ([id number]) [address], [address] [place] [address] #### [place] #### [facility] ([id number]) [address] [place] [address] 22789 Bilirubin [Mass/Vol] 0.4 mg/dL Normal 0.3-1.2 [facility] Comment on above: Performed By: #### 3 094-0, 07370-7, 0, 2028-06, HIGH WORKER, 2951- 2, 2777-1, 3084-1, 2731-8 #### [facility] ([id number]) [address], [address] [place] [address] #### [place] #### [facility] ([id number]) [address] [place] [address] 31904 Calcium [Mass/Vol] 8.7 mg/dL Normal 8.5-10.5 [facility] Comment on above: Performed By: #### 3 094-0, 77980-3, 0, 2028-06, HIGH WORKER, 2951- 2, 2777-1, 3084-1, 2731-8 #### [facility] ([id number]) [address], [address] [place] [address] #### [place] #### [facility] ([id number]) [address] [place] [address] 90491 Chloride [Moles/Vol] 107 mmol/L Normal 98-109 [facility] Comment on above: Performed By: #### 3 094-0, 37861-2, , 2028-06, HIGH WORKER, 2951- 2, 2777-1, 3084-1, 2731-8 #### [facility] ([id number]) [address] [facility], [address] [place] [address] #### [place]U #### [facility] ([id number]) [address] [place] [address] 33185 CO2 [Moles/Vol] 26 mmol/L Normal 22-32 [facility] Comment on above: Performed By: #### 3 094-0, 28189-7, , 2028-06, HIGH WORKER, 2951- 2, 2777-1, 3084-1, 2731-8 #### [facility] ([id number]) [address], [address] [place] [address] #### [place] #### [facility] ([id number]) [address] [place] [address] 91440 Creatinine [Mass/Vol] 0.64 mg/dL Normal 0.40-1.00 [facility] Comment on above: Result Comment: METH OD TRACEABLE TO IDMS STANDARD Performed By: #### 3 094-0, 07396-3, 0, 2028-06, HIGH WORKER, 2951-2, 2777-1, 3084-1, 2731-8 #### [facility] ([id number]) [address], [address] [place] [address] #### [place] #### [facility] ([id number]) [address] [place] [address] 76749 eGFR (CKD-EPI) NON-RACE DEPENDENT >90 Normal >59 [facility] Comment on above: Result Comment: Reported eGFR is based on the CKD-EPI 2020 equation that does not use a race coefficient. Performed By: #### 3 094-0, 87153-4, 0, 2028-06, HIGH WORKER, 2951-2, 2777-1, 3084-1, 273-8 #### [facility] ([id number]) [address], [address] [place] [address] #### [place] #### [facility] ([id number]) [address] [place] [address] 77120 Glucose [Mass/Vol] 88 mg/dL Normal 65-99 [facility] Comment on above: Performed By: #### 3 094-0, 86682-0, 0, 2028-06, HIGH WORKER, 2951- 2, 2777-1, 3084-1, 273-8 #### [facility] ([id number]) [address], [address] [place] [address] #### [place] #### [facility] ([id number]) [address] [place] [address] 52715 Potassium [Moles/Vol] 3.6 mmol/L Normal 3.5-5.0 [facility] Comment on above: Performed By: #### 3 094-0, 59733-7, 0, 2028-06, HIGH WORKER, 2951- 2, 2777-1, 3084-1, 2731-8 #### [facility] ([id number]) [address], [address] [place] [address] #### [place] #### [facility] ([id number]) [address] [place] [address] 46804 Protein [Mass/Vol] 8.0 g/dL Normal 6.0-8.0 [facility] Comment on above: Performed By: #### 3 094-0, 69991-7, 0, 2028-06, HIGH WORKER, 2951- 2, 2777-1, 3084-1, 2731-8 #### [facility] ([id number]) [address] [facility], [address] [place] [address] #### [place]U #### [facility] ([id number]) [address] [place] [address] 70628 Sodium [Moles/Vol] 139 mmol/L Normal 134-146 [facility] Comment on above: Performed By: #### 3 094-0, 36539-4, 0, 2028-06, HIGH WORKER, 2951- 2, 2777-1, 3084-1, 2731-8 #### [facility] ([id number]) [address] [facility], [address] [place] [address] #### [place] #### [facility] ([id number]) [address] [place] [address] 00195 Urea nitrogen [Mass/Vol] 14 mg/dL Normal 5-23 [facility] Comment on above: Performed By: #### 3 094-0, 62706-6, 0, 2028-06, HIGH WORKER, 2951- 2, 2777-1, 3084-1, 2731-8 #### [facility] ([id number]) [address] [facility], [address] [place] [address] #### [place] #### [facility] ([id number]) [address] [place] [address], [place] [address] [address] ABDOMEN AND PELVIS WO CON Ton [...] Schmidt MD on 03/06/2024 11:46 PM Normal [facility] URINE CULTUREon 03-06-2024 Bacteria identified Cx Nom (U) SPECIMEN NOTES URINE RECEIVED WITHOUT PRESERVATIVE CULTURE RESULTS 10-50,000 ORGANISMS/mL NORMAL UROGENITAL ALE Normal [facility] Comment on above: Performed By: #### 3 094-0, 14783-3, 0, 2028-06, HIGH WORKER, 2951- 2, 2777-1, 3084-1, 2731-8 #### [facility] ([id number]) [address] [facility], [address] [place] [address] #### [place] #### [facility] ([id number]) [address] [place] [address] URN MACROSCOPIC NURon 2023 BILIRUBIN JUNIOR Negative Normal NEG [facility] Comment on above: Performed By: #### 3 094-0, 05785-7, , 2028-06, HIGH WORKER, 2951- 2, 2777-1, 3084-1, 2731-8 #### [facility] ([id number]) [address], [address] [place] [address] #### [place] #### [facility] ([id number]) [address] [place] [address] BLOOD/HGB JUNIOR Large Abnormal NEG [facility] Comment on above: Performed By: #### 3 094-0, 85990-9, 2074-0, 2028-06, HIGH WORKER, 2951- 2, 2777-1, 3084-1, 2731-8 #### [facility] ([id number]) [address], [address] [place] [address] #### [place] #### [facility] ([id number]) [address] [place] [address] 39901 GLUCOSE JUNIOR Negative Normal NEG [facility] Comment on above: Performed By: #### 3 094-0, 11118-2, 0, 2028-06, HIGH WORKER, 2951- 2, 2777-1, 3084-1, 2731-8 #### [facility] ([id number]) [address], [address] [place] [address] #### [place] #### [facility] ([id number]) [address] [place] [address] 64495 KETONES JUNIOR Negative Normal NEG [facility] Comment on above: Performed By: #### 3 094-0, 11885-3, 0, 2028-06, HIGH WORKER, 2951- 2, 2777-1, 3084-1, 2731-8 #### [facility] ([id number]) [address], [address] [place] [address] #### [place] #### [facility] ([id number]) [address] [place] [address] [place] [address] LEUKOCYTE ESTERASE JUNIOR Negative Normal NEG [facility] Comment on above: Performed By: #### 3 094-0, 43831-7, , 2028-06, HIGH WORKER, 2951- 2, 2777-1, 3084-1, 273-8 #### [facility] ([id number]) [address], [address] [place] [address] #### [place] #### [facility] ([id number]) [address] [place] [address] 87349 NITRITE JUNIOR Negative Normal NEG [facility] Comment on above: Performed By: #### 3 094-0, 61055-0, , 2028-06, HIGH WORKER, 2951- 2, 2777-1, 3084-1, 273-8 #### [facility] ([id number]) [address] [facility], [address] [place] [address] #### [place]U #### [facility] ([id number]) [address] [place] [address] 70655 PH JUNIOR 7.0 Normal 5.0-8.5 [facility] Comment on above: Performed By: #### 3 094-0, 10387-6, 0, 2028-06, HIGH WORKER, 2951- 2, 2777-1, 3084-1, 273-8 #### [facility] ([id number]) [address], [address] [place] [address] #### [place] #### [facility] ([id number]) [address] [place] [address] 78029 PROTEIN JUNIOR 30 mg/dL Abnormal NEG [facility] Comment on above: Performed By: #### 3 094-0, 67204-2, 0, 2028-06, HIGH WORKER, 2951- 2, 2777-1, 3084-1, 2731-8 #### [facility] ([id number]) [address], [address] [place] [address] #### [place]U #### [facility] ([id number]) [address] [place] [address] 62663 SPECIFIC GRAVITY JUNIOR 1.025 Normal 1.003-1.035 [facility] Comment on above: Performed By: #### 3 094-0, 60417-1, 0, 2028-06, HIGH WORKER, 2951- 2, 2777-1, 3084-1, 2731-8 #### [facility] ([id number]) [address], [address] [place] [address] #### [place]U #### [facility] ([id number]) [address] [place] [address] 61195 UROBILINOGEN JUNIOR 1.0 eu/dL Normal <1.1 [facility] Comment on above: Performed By: #### 3 094-0, 17195-8, 0, 2028-06, HIGH WORKER, 2951- 2, 2777-1, 3084-1, 273-8 #### [facility] ([id number]) [address], [address] [place] [address] #### [place]U #### [facility] ([id number]) [address] [place] [address]7725 Lab Reportson 02-22-2024 Lab Reports [id number]#1.00TIFF Normal [facility] 02-18-2024 Lab Reports [id number]#1.00TIFF Normal [facility] 02-17-2024 Lab Reports [id number]#1.00TIFF Normal [facility] 24 HR PHOSPHORUS,URINEon URINE PHOSPHORUS 0.8 g/24h Normal 0.4-1.3 [facility] Comment on above: Performed By: #### 3 094-0, 72780-7, , 2028-06, HIGH WORKER, 2951- 2, 2777-1, 3084-1, 2731-8 #### [facility] ([id number]) [address] [facility], [address] [place] [address] #### [place]U #### [facility] ([id number]) [address] [place] [address] 74366 24 HR UR MAGNESIUMon 024 URINE MAGNESIUM 116 mg/24h Normal 72-182 [facility] Comment on above: Performed By: #### 3 094-0, 73667-7, , 2028-06, HIGH WORKER, 2951- 2, 2777-1, 3084-1, 2731-8 #### [facility] ([id number]) [address] [facility], [address] [place] [address] #### [place]U #### [facility] ([id number]) [address] [place] [address] 10012 24 HR URINE CALCIUMon 2023 URINE CALCIUM 134 mg/24h Normal 50-250 [facility] Comment on above: Performed By: #### 3 094-0, 52684-3, , 2028-06, HIGH WORKER, 2951- 2, 2777-1, 3084-1, 2731-8 #### [facility] ([id number]) [address] [facility], [address] [place] [address] #### [place]U #### [facility] ([id number]) [address] [place] [address] 88718 24 HR URINE CREATININEon URINE CREATININE 0.88 g/24h Normal 0.80-1.80 [facility] Comment on above: Performed By: #### 3 094-0, 06771-2, 0, 2028-06, HIGH WORKER, 2951- 2, 2777-1, 3084-1, 2731-8 #### [facility] ([id number]) [address], [address] [place] [address] #### [place]U #### [facility] ([id number]) [address] [place] [address] 68988 24 HR URINE SODIUMon 02-14- 024 URINE SODIUM 189 mmol/24h Normal 40-220 [facility] Comment on above: Performed By: #### 3 094-0, 40826-9, , 2028-06, HIGH WORKER, 2951- 2, 2777-1, 3084-1, 2731-8 #### [facility] ([id number]) [address], [address] [place] [address] #### [place]U #### [facility] ([id number]) [address] [place] [address] 39085 24 HR URINE URIC ACIDon URINE URIC ACID 0.4 g/24h Normal 0.3-0.8 [facility] Comment on above: Performed By: #### 3 094-0, 25246-7, , 2028-06, HIGH WORKER, 2951- 2, 2777-1, 3084-1, 2731-8 #### [facility] ([id number]) [address], [address] [place] [address] #### [place]U #### [facility] ([id number]) [address] [place] [address] 69678 BLOOD UREA NITROGENon 2023 Urea nitrogen [Mass/Vol] 9 mg/dL Normal 5-23 [facility] Comment on above: Performed By: #### 3 094-0, 92296-6, , 2028-06, HIGH WORKER, 2951- 2, 2777-1, 3084-1, 2731-8 #### [facility] ([id number]) [address], [address] [place] [address] #### [place]U #### [facility] ([id number]) [address] [place] [address] 29998 CALCIUMon 02-15-2024 Calcium [Mass/Vol] 9.0 mg/dL Normal 8.5-10.5 [facility] Comment on above: Performed By: #### 3 094-0, 68788-0, , 2028-06, HIGH WORKER, 2951- 2, 2777-1, 3084-1, 2731-8 #### [facility] ([id number]) [address] [facility], [address] [place] [address] #### [place]U #### [facility] ([id number]) [address] [place] [address] 30053 CARBON DIOXIDEon 02-15-2024 CO2 [Moles/Vol] 22 mmol/L Normal 22-32 [facility] Comment on above: Performed By: #### 3 094-0, 62964-2, , 2028-06, HIGH WORKER, 2951- 2, 2777-1, 3084-1, 2731-8 #### [facility] ([id number]) [address] [facility], [address] [place] [address] #### CIT[place]U #### [facility] ([id number]) [address] [place] [address] 20004 CHLORIDEon 02-15-2024 Chloride [Moles/Vol] 111 mmol/L High 98-109 [facility] Comment on above: Performed By: #### 3 094-0, 47932-9, , 2028-06, HIGH WORKER, 2951- 2, 2777-1, 3084-1, 2731-8 #### [facility] ([id number]) [address], [address] [place] [address] #### [place]U #### [facility] ([id number]) [address] [place] [address] 75779 CITRIC ACID URINEon 02-15-20 24 CITRIC ACID,24H UR 550 mg/d Normal 320-1240 [facility] Comment on above: Performed By: #### 3 094-0, 99765-0, 2074-0, 9, HIGH WORKER, 2951- 2, 2777-1, 3084-1, 2731-8 #### [facility] ([id number]) [address] [facility], [address] [place] [address] #### [place]U #### [facility] ([id number]) [address] [place] [address] 21419 CITRIC ACID,UR,VOL 611 mg/L Normal [facility] Comment on above: Performed By: #### 3 094-0, 36731-9, 2074-0, 2028-06, HIGH WORKER, 2951- 2, 2777-1, 3084-1, 2731-8 #### [facility] ([id number]) [address] [facility], [address] [place] [address] #### [place] #### [facility] ([id number]) [address] [place] [address] 59196 CITRIC/CREAT RATIO 593 mg/g Normal >=150 [facility] Comment on above: Result Comment: NOTE INTERPRETIVE INFORMATION: Citric Acid, Urine This test was developed and its performance characteristics determined by [employer]. It has not been cleared or approved by the [place] Food and Drug Administration. This test was performed in a CLIA certified laboratory and is intended for clinical purposes. Performed By: [facility] [employer] [address] [place] [id number] Contract Administration Coordinator: Luca Mosquera MD, PhD CLIA Number: [id number] Performed By: #### 3 094-0, 44801-5, 0, 2028-06, HIGH WORKER, 2951-2, 2777-1, 3084-1, 273-8 #### [facility] ([id number]) [address] [facility], [address] [place] [address] #### [place] #### [facility] ([id number]) [address] [place] [address] 23164 CREATININE,24H URINE 927 mg/d Normal 700-1600 [facility] Comment on above: Performed By: #### 3 094-0, 51776-1, , 2028-06, HIGH WORKER, 2951- 2, 2777-1, 3084-1, 273-8 #### [facility] ([id number]) [address] [facility], [address] [place] [address] #### [place] #### [facility] ([id number]) [address] [place] [address] 27802 CREATININE,UR,VOL 103 mg/dL Normal [facility] Comment on above: Performed By: #### 3 094-0, 50607-5, 0, 2028-06, HIGH WORKER, 2951- 2, 2777-1, 3084-1, 273-8 #### [facility] ([id number]) [address] [facility], [address] [place] [address] #### [place] #### [facility] ([id number]) [address] [place] [address]792 HOURS COLLECTED 24 Normal [facility] Comment on above: Performed By: #### 3 094-0, 66730-6, 2074-0, 2028-06, HIGH WORKER, 2951- 2, 2777-1, 3084-1, 273-8 #### [facility] ([id number]) [address] [facility], [address] [place] [address] #### [place] #### [facility] ([id number]) [address] [place] [address] 02419 TOT VOLUME-24H URINE 900 Normal [facility] Comment on above: Performed By: #### 3 094-0, 42906-0, 0, 2028-06, HIGH WORKER, 2951- 2, 2777-1, 3084-1, 2731-8 #### [facility] ([id number]) [address] [facility], [address] [address] #### [place] #### [facility] ([id number]) [address] [place] [address] 47555 CREATININEon 02-15-2024 Creatinine [Mass/Vol] 0.70 mg/dL Normal 0.40-1.00 [facility] Comment on above: Result Comment: METH OD TRACEABLE TO IDMS STANDARD Performed By: #### 3 094-0, 89357-9, 0, 2028-06, HIGH WORKER, 2951-2, 2777-1, 3084-1, 273-8 #### [facility] ([id number]) [address] [facility], [address] [address] #### [place] #### [facility] ([id number]) [address] [place] [address] 16941 eGFR (CKD-EPI) NON-RACE DEPENDENT >90 Normal >59 [facility] Comment on above: Result Comment: Reported eGFR is based on the CKD-EPI 2020 equation that does not use a race coefficient. Performed By: #### 3 094-0, 33975-4, 0, 2028-06, HIGH WORKER, 2951-2, 2777-1, 3084-1, 2731-8 #### [facility] ([id number]) [address] [facility], [address] [place] [address] #### [place] #### [facility] [facility] ([id number]) [address] [place] [address] 98152 OXALATE, TOTAL URINEon 02-14 CREATININE,24H URINE 945 mg/d Normal 700-1600 [facility] Comment on above: Result Comment: NOTE Performed By: [employer] [address] [place] [address] Contract Administration Coordinator: Luca Mosquera MD, PhD CLIA Number: [id number] Performed By: #### 3 094-0, 88458-2, 0, 2028-06, HIGH WORKER, 2951-2, 2777-1, 3084-1, 273-8 #### [facility] ([id number]) [address] [facility], [address] [place] [address] #### [employer] #### [facility] ([id number]) [address] [place] [address] CREATININE,UR,VOL 105 mg/dL Normal [facility] Comment on above: Performed By: #### 3 094-0, 24508-7, , 2028-06, HIGH WORKER, 2951- 2, 2777-1, 3084-1, 273-8 #### [facility] ([id number]) [address] [facility], [address] [place] [address] #### [employer] #### [facility] ([id number]) [address] [place] [address] 58349 HOURS COLLECTED 24 Normal [facility] Comment on above: Performed By: #### 3 094-0, 74188-6, 0, 2028-06, HIGH WORKER, 2951- 2, 2777-1, 3084-1, 273-8 #### [facility] ([id number]) [address] [facility], [address] [place] [address] #### [employer] #### [facility] ([id number]) [address] [place] [address]215 OXALATE, PER VOLUME 32 mg/L Normal [facility] Comment on above: Performed By: #### 3 094-0, 60490-5, 0, 2028-06, HIGH WORKER, 2951- 2, 2777-1, 3084-1, 273-8 #### [facility] ([id number]) [address] [place] [address], [address] [address] #### [employer] #### [facility] ([id number]) [address] [place] [address]07 OXALATE,URINE/24H 29 mg/d Normal 13-40 [facility] Comment on above: Result Comment: NOTE REFERENCE INTERVAL: Oxalate, Urine - per 24h Access complete set of age- and/or gender-specific reference intervals for this test in the [employer] Laboratory Test Directory ([employer]). This test was developed and its performance characteristics determined by [employer]. It has not been cleared or approved by the [place] Food and Drug Administration. This test was performed in a CLIA certified laboratory and is intended for clinical purposes. Performed By: #### 3 094-0, 93847-5, 0, 2028-06, HIGH WORKER, 2951-2, 2777-1, 3084-1, 2731-05 #### [facility] ([id number]) [address] [place] [address], [facility] [address] [place] [address] #### [employer] #### [facility] ([id number]) [address] [place] [address]61 TOT VOLUME-24H URINE 900 Normal [facility] Comment on above: Performed By: #### 3 094-0, 88147-0, 0, 2028-06, HIGH WORKER, 2951- 2, 2777-1, 3084-1, 2730- #### [facility] ([id number]) [address], [address] [place] [address] #### [employer] #### [facility] ([id number]) [address] [place] [address] PHOSPHORUSon 02-15-2024 Phosphate [Mass/Vol] 3.7 mg/dL Normal 2.4-4.9 [facility] Comment on above: Performed By: #### 3 094-0, 86042-4, , 2028-06, HIGH WORKER, 2951- 2, 2777-1, 3084-1, 2731-8 #### [facility] ([id number]) [address] [facility], [address] [place] [address] #### [employer] #### [facility] ([id number]) [address] [place] [address] Parathyrin.intact [Mass/Vol] on 02-15-2024 PTH INTACT 65 pg/mL Normal 12-88 [facility] Comment on above: Performed By: #### 3 094-0, 59775-3, , 2028-06, HIGH WORKER, 2951- 2, 2777-1, 3084-1, 2731-8 #### [facility] ([id number]) [address], [address] [place] [address] #### [employer] #### [facility] ([id number]) [address] [place] [address]59 SODIUMon 02-15-2024 Sodium [Moles/Vol] 141 mmol/L Normal 134-146 [facility] Comment on above: Performed By: #### 3 094-0, 80483-5, , 2028-06, HIGH WORKER, 2951- 2, 2777-1, 3084-1, 2731-8 #### [facility] ([id number]) [address], [address] [place] [address] #### [employer] #### [facility] ([id number]) [address] [place] [address] 94183 URIC ACIDon 02-15-2024 Urate [Mass/Vol] 3.6 mg/dL Normal 2.6-7.2 [facility] Comment on above: Performed By: #### 3 094-0, 50279-6, , 2028-06, HIGH WORKER, 2951- 2, 2777-1, 3084-1, 2731-8 #### [facility] ([id number]) [address] [facility], [address] [place] [address] #### [employer] #### [facility] ([id number]) [address] [place] [address]3391 URINE VOLUME AND TIMEon TIME 24 h Normal [facility] Comment on above: Performed By: #### 3 094-0, 67394-6, , 2028-06, HIGH WORKER, 2951- 2, 2777-1, 3084-1, 2731-8 #### [facility] ([id number]) [address] [facility], [address] [place] [address] #### [employer] #### [facility] ([id number]) [address] [place] [address] 56095 TOTAL VOLUME 900 mL Normal [facility] Comment on above: Performed By: #### 3 094-0, 29756-1, , 2028-06, HIGH WORKER, 2951- 2, 2777-1, 3084-1, 2731-8 #### [facility] ([id number]) [address] [facility], [address] [place] [address] #### [employer] #### [facility] ([id number]) [address] [place] [address] 19374 TIME 24 h Normal [facility] Comment on above: Performed By: #### 3 094-0, 81582-9, 0, 2028-06, HIGH WORKER, 2951- 2, 2777-1, 3084-1, 2731-8 #### [facility] ([id number]) [address] [facility], [address] [place] [address] #### [employer] #### [facility] ([id number]) [address] [place] [address] 68686 TOTAL VOLUME 900 mL Normal [facility] Comment on above: Performed By: #### 3 094-0, 63248-6, 0, 2028-06, HIGH WORKER, 2951- 2, 2777-1, 3084-1, 2731-8 #### [facility] ([id number]) [address] [facility], [address] [place] [address] #### [employer] #### [facility] ([id number]) [address] [place] [address] 64368 XR ankle LT min 3V*on 2023 XR ankle LT min 3V* [facility] [address] [address] XRay Report Signed Patient: Elvi Moore MR#: [id number] : 1980 Acct:[id number] Age/Sex: 43 / F ADM Date: 01/06/24 Loc: XDUCLY Room: Type: [facility] Attending Dr: Rianna Antonio APRN Copies [...] Solange Brown M.D.01/06/2024 6:47 PM Dictation Location: [place] [address] Transcribed By: [facility] 01/06/241846 Dictated By: Solange Brown MD 01/06/241845 Signed By: 01/06/241846 Normal [facility] Transfer Inon 11-05-2023 Transfer In [id number] [id number] Normal [facility] Ferritinon 05-28-2023 Ferritin [Mass/Vol] 4.9 ng/mL Low 11.0-306.8 [facility] Comment on above: Result Comment: PERF ORMED BY: [place] [address] PATHOLOGIST CIRCULATION MANAGER MELISSA WAGNER M.D. Performed By: #### S CAN CBC, JANESSA, FE and TIBC #### [address] Iron and TIBC Profileon 05-11 % Iron Saturation 2.5 % Low 20-50 [facility] Comment on above: Performed By: #### S CAN CBC, JANESSA, FE and TIBC #### [address] Iron [Mass/Vol] 13 ug/dL Low 50-212 [facility] Comment on above: Performed By: #### S CAN CBC, JANESSA, FE and TIBC #### [address] Total Iron Binding Capacity 517 ug/dL High 255-450 [facility] Comment on above: Performed By: #### S CAN CBC, JANESSA, FE and TIBC #### [address] Transferrin [Mass/Vol] 369 mg/dL High 203-362 [facility] Comment on above: Performed By: #### S CAN CBC, JANESSA, FE and TIBC #### [address] Scan and CBCon 05-28-2023 Anisocytosis Ql (Bld) Marked Normal [facility] Comment on above: Performed By: #### S CAN CBC, JANESSA, FE and TIBC #### [address] Basophils (Bld) [#/Vol] 0.0 10*3/uL Normal 0.0-0.2 [facility] Comment on above: Performed By: #### S CAN CBC, JANESSA, FE and TIBC #### [address] Basophils/100 WBC (Bld) 0.3 % Normal . [facility] Comment on above: Performed By: #### S CAN CBC, JANESSA, FE and TIBC #### [address] Eosinophils (Bld) [#/Vol] 0.0 10*3/uL Normal 0.0-0.45 [facility] Comment on above: Performed By: #### S CAN CBC, JANESSA, FE and TIBC #### [address] Eosinophils/100 WBC (Bld) 0.6 % Normal . [facility] Comment on above: Performed By: #### S CAN CBC, JANESSA, FE and TIBC #### [address] Erythrocyte distribution width (RBC) [Ratio] 20.1 % High 11.9-15.3 [facility] Comment on above: Performed By: #### S CAN CBC, JANESSA, FE and TIBC #### [address] Hematocrit (Bld) [Volume fraction] 28.6 % Low 34.0-46.4 [facility] Comment on above: Performed By: #### S CAN CBC, JANESSA, FE and TIBC #### [address] Hemoglobin (Bld) [Mass/Vol] 8.9 g/dL Low 11.8-15.4 [facility] Comment on above: Performed By: #### S CAN CBC, JANESSA, FE and TIBC #### [address] Hypochromasia Moderate Normal [facility] Comment on above: Performed By: #### S CAN CBC, JANESSA, FE and TIBC #### [address] Lymphocytes (Bld) [#/Vol] 2.6 10*3/uL Normal 1.00-4.8 [facility] Comment on above: Performed By: #### S CAN CBC, JANESSA, FE and TIBC #### [address] Lymphocytes/100 WBC (Bld) 37.7 % Normal . [facility] Comment on above: Performed By: #### S CAN CBC, JANESSA, FE and TIBC #### [address] MCH (RBC) [Entitic mass] 20.5 pg Low 24.7-34.3 [facility] Comment on above: Performed By: #### S CAN CBC, JANESSA, FE and TIBC #### [address] MCV (RBC) [Entitic vol] 65.8 fL Low 80-100 [facility] Comment on above: Performed By: #### S CAN CBC, JANESSA, FE and TIBC #### [address] Mean Corpuscular HGB Conc 31.1 g/dL Low 32.0-35.0 [facility] Comment on above: Performed By: #### S CAN CBC, JANESSA, FE and TIBC #### [address] Microcytosis Marked Normal [facility] Comment on above: Performed By: #### S CAN CBC, JANESSA, FE and TIBC #### [address] Monocytes (Bld) [#/Vol] 0.4 10*3/uL Normal 0.0-0.8 [facility] Comment on above: Performed By: #### S CAN CBC, JANESSA, FE and TIBC #### [address] Monocytes/100 WBC (Bld) 6.3 % Normal . [facility] Comment on above: Performed By: #### S CAN CBC, JANESSA, FE and TIBC #### [address] Neutrophils (Bld) [#/Vol] 3.8 10*3/uL Normal 1.8-7.7 [facility] Comment on above: Performed By: #### S CAN CBC, JANESSA, FE and TIBC #### [address] Neutrophils/100 WBC (Bld) 55.1 % Normal . [facility] Comment on above: Performed By: #### S CAN CBC, JANESSA, FE and TIBC #### [address] NRBC% 0.1 /100{WBC} Normal 0-0.5 [facility] Comment on above: Performed By: #### S CAN CBC, JANESSA, FE and TIBC #### [address] Ovalocytes Slight Normal [facility] Comment on above: Performed By: #### S CAN CBC, JANESSA, FE and TIBC #### [address] Platelet Estimate Normal Normal Normal [facility] Comment on above: Performed By: #### S CAN CBC, JANESSA, FE and TIBC #### [address] Platelet mean volume (Bld) [Entitic vol] 8.7 fL Normal 6.3-10.7 [facility] Comment on above: Performed By: #### S CAN CBC, JANESSA, FE and TIBC #### [place] [address] [place] Platelet Morphology Normal Normal Normal [facility] Comment on above: Result Comment: PERF ORMED BY: [place] [address] PATHOLOGIST CIRCULATION MANAGER MELISSA WAGNER M.D. Performed By: #### S CAN CBC, JANESSA, FE and TIBC #### [address] Platelets (Bld) [#/Vol] 218 10*3/uL Normal 150-450 [facility] Comment on above: Performed By: #### S CAN CBC, JANESSA, FE and TIBC #### [address] Poikilocytosis Slight Normal [facility] Comment on above: Performed By: #### S CAN CBC, JANESSA, FE and TIBC #### [address] RBC (Bld) [#/Vol] 4.34 10*6/uL Normal 3.60-5.00 [facility] Comment on above: Performed By: #### S CAN CBC, JANESSA, FE and TIBC #### [address] Schistocytes Slight Normal [facility] Comment on above: Performed By: #### S CAN CBC, JANESSA, FE and TIBC #### [address] WBC (Bld) [#/Vol] 6.9 10*3/uL Normal 3.8-11.6 [facility] Comment on above: Performed By: #### S CAN CBC, JANESSA, FE and TIBC #### [facility] [address] AMYLASEon 01-25-2023 Amylase [Catalytic activity/Vol] 64 U/L Normal 25-115 [facility] Comment on above: Performed By: #### B MP, LIPA, YVETTE, LIVER #### [facility] [address] [address] [address] Idania Roldan CBC AUTO DIFFon 01-25-2023 BASO # 0.0 103/ul Normal 0.0-0.1 [facility] Comment on above: Performed By: #### B MP, LIPA, YVETTE, LIVER #### [facility] [address] [place] [address] Dr. Idania Roldan Basophils/100 WBC (Bld) 0.3 % Normal 0.2-2.0 [facility] Comment on above: Performed By: #### B MP, LIPA, YVETTE, LIVER #### [facility] [address] [place] [address] Dr. Idania Roldan EO # 0.1 103/ul Normal 0.0-0.7 [facility] Comment on above: Performed By: #### B MP, LIPA, YVETTE, LIVER #### [facility] [address] [place] [address] Dr. Idania Roldan Eosinophils/100 WBC (Bld) 1.0 % Normal 0.9-7.0 [facility] Comment on above: Performed By: #### B MP, LIPA, YVETTE, LIVER #### [facility] [address] [place] [address] Dr. Idania Roldan Erythrocyte distribution width (RBC) [Ratio] 17.2 % Critically high 11.0-15.0 [facility] Comment on above: Performed By: #### B MP, LIPA, YVETTE, LIVER #### [facility] [address] [place] [address] Dr. Idania Roldan Hematocrit (Bld) [Volume fraction] 33.9 % Critically low 36.0-48.0 [facility] Comment on above: Performed By: #### B MP, LIPA, YVETTE, LIVER #### [facility] [address] [place] [address] Dr. Idania Roldan Hemoglobin (Bld) [Mass/Vol] 10.1 g/dL Critically low 12.0-16.0 [facility] Comment on above: Performed By: #### B MP, LIPA, YVETTE, LIVER #### [facility] [address] [place] [address] Dr. Idania Roldan IG # 0.01 10e3/ul Normal 0.00-0.03 [facility] Comment on above: Performed By: #### B MP, LIPA, YVETTE, LIVER #### [facility] [address] [place] [address] Dr. Idania Roldan IG % 0.2 % Normal 0.0-0.5 [facility] Comment on above: Performed By: #### B MP, LIPA, YVETTE, LIVER #### [facility] [address] [place] [address] Dr. Idania Roldan LYMPH # 1.7 103/ul Normal 1.2-3.8 [facility] Comment on above: Performed By: #### B MP, LIPA, YVETTE, LIVER #### [facility] [address] [place] [address] Dr. Idania Roldan Lymphocytes/100 WBC (Bld) 27.9 % Normal 20.5-60.0 [facility] Comment on above: Performed By: #### B MP, LIPA, YVETTE, LIVER #### [facility] [address] [place] [address] Dr. Idania Roldan MANUAL DIFF REQ NO Normal [facility] Comment on above: Performed By: #### B MP, LIPA, YVETTE, LIVER #### [facility] [address] [place] [address] Dr. Idania Roldan MCH (RBC) [Entitic mass] 20.7 pg Critically low 26.7-34.0 [facility] Comment on above: Performed By: #### B MP, LIPA, YVETTE, LIVER #### [facility] [address] [place] [address] Dr. Idania Roldan MCHC (RBC) [Mass/Vol] 29.8 g/dL Critically low 29.9-35.2 [facility] Comment on above: Performed By: #### B MP, LIPA, YVETTE, LIVER #### [facility] [address] [place] [address] Dr. Idania Roldan MCV (RBC) [Entitic vol] 69.6 fL Critically low 81.0-99.0 [facility] Comment on above: Performed By: #### B MP, LIPA, YVETTE, LIVER #### [facility] [address] [place] [address] Dr. Idania Roldan MONO # 0.4 103/ul Normal 0.3-0.8 [facility] Comment on above: Performed By: #### B MP, LIPA, YVETTE, LIVER #### [facility] [address] [place] [address] Dr. Idania Roldan Monocytes/100 WBC (Bld) 7.1 % Normal 1.7-12.0 [facility] Comment on above: Performed By: #### B MP, LIPA, YVETTE, LIVER #### [facility] [address] [place] [address] Dr. Idania Roldan NEUT # 3.8 103/ul Normal 1.4-6.5 [facility] Comment on above: Performed By: #### B MP, LIPA, YVETTE, LIVER #### [facility] [address] [place] [address] Dr. Idania Roldan Neutrophils/100 WBC (Bld) 63.5 % Normal 43.0-75.0 [facility] Comment on above: Performed By: #### B MP, LIPA, YVETTE, LIVER #### [facility] [address] [place] [address] Dr. Idania Roldan Platelet mean volume (Bld) [Entitic vol] 9.3 fL Critically low 9.5-13.5 [facility] Comment on above: Performed By: #### B MP, LIPA, YVETTE, LIVER #### [facility] [address] [place] [address] Dr. Idania Roldan PLT 294 103/ul Normal 150-450 [facility] Comment on above: Performed By: #### B MP, LIPA, YVETTE, LIVER #### [facility] [address] [place] [address] Dr. Idania Roldan RBC 4.87 106/ul Normal 4.20-5.40 [facility] Comment on above: Performed By: #### B MP, LIPA, YVETTE, LIVER #### [facility] [address] [place] [address] Dr. Idania Roldan WBC 6.0 103/ul Normal 4.0-11.0 [facility] Comment on above: Performed By: #### B MP, LIPA, YVETTE, LIVER #### [facility] [address] [address] [address] ABD/PELVIS WO CONon [...] VEDA BOND Date: 2023-01-25 12:20 Normal [facility] URINE PROFILEon 3 Bilirubin Ql (U) SMALL Abnormal NEGATIVE [facility] Comment on above: Performed By: #### B MP, LIPA, YVETTE, LIVER #### [facility] [address] [address] [address] Idania Roldan Clarity (U) CLEAR Normal CLEAR [facility] Comment on above: Performed By: #### B MP, LIPA, YVETTE, LIVER #### [facility] [address] [address] [address] Idania Roldan Color (U) DK. YELLOW Normal YELLOW [facility] Comment on above: Performed By: #### B MP, LIPA, YVETTE, LIVER #### [facility] [address] [place] [address] Dr. Idania MENDOSA A micrscopic examina tion will be performed if indicated. Normal [facility] Comment on above: Performed By: #### B MP, LIPA, YVETTE, LIVER #### [facility] [address] [address] [address] Idania Roldan Glucose Ql (U) Negative Normal NEGATIVE The [facility] Comment on above: Performed By: #### B MP, LIPA, YVETTE, LIVER #### [facility] [address] [place] [address] Dr. Idania Roldan Hemoglobin Ql (U) LARGE Abnormal NEGATIVE [facility] Comment on above: Performed By: #### B MP, LIPA, YVETTE, LIVER #### [facility] [address] [place] [address] Dr. Idania Roldan Ketones Ql (U) TRACE Abnormal NEGATIVE [facility] Comment on above: Performed By: #### B MP, LIPA, YVETTE, LIVER #### [facility] [address] [place] [address] Dr. Idania Roldan LEUKOCYTES Negative Normal NEGATIVE [facility] Comment on above: Performed By: #### B MP, LIPA, YVETTE, LIVER #### [facility] [address] [place] [address] Dr. Idania Roldan Nitrite Ql (U) Negative Normal NEGATIVE [facility] Comment on above: Performed By: #### B MP, LIPA, YVETTE, LIVER #### [facility] [address] [place] [address] Dr. Idania Roldan pH (U) 5.0 [pH] Normal 5-9 [facility] Comment on above: Performed By: #### B MP, LIPA, YVETTE, LIVER #### [facility] [address] [place] [address] Dr. Idania Roldan SPEC GRAVITY >=1.030 Abnormal 1.005-<=1.02 5 [facility] Comment on above: Performed By: #### B MP, LIPA, YVETTE, LIVER #### [facility] [address] [place] [address] Dr. Idania Roldan UA PROTEIN TRACE Normal NEGATIVE/ TRACE [facility] Comment on above: Performed By: #### B MP, LIPA, YVETTE, LIVER #### [facility] [address] [place] [address] Dr. Idania Roldan UR MICRO IND INDICATED Normal [facility] Comment on above: Performed By: #### B MP, LIPA, YVETTE, LIVER #### [facility] [address] [place] [address] Dr. Idania Roldan Urobilinogen Qn (U) 0.2 {Bryan'U}/dL Normal 0.2 - 1. 0 [facility] Comment on above: Performed By: #### B MP, LIPA, YVETTE, LIVER #### [facility] [address] [place] [address] Dr. Idania Roldan LIPASEon 01-25-2023 Lipase [Catalytic activity/Vol] 226.0 U/L Normal 73.0-393.0 [facility] Comment on above: Performed By: #### B MP, LIPA, YVETTE, LIVER #### [facility] [address] [place] [address] Dr. Idania Roldan LIVER PROFILEon 01-25-2023 Albumin [Mass/Vol] 4.1 g/dL Normal 3.4-5.0 [facility] Comment on above: Performed By: #### B MP, LIPA, YVETTE, LIVER #### [facility] [address] [place] [address] Dr. Idania Roldan Albumin/Globulin [Mass ratio] 0.9 {ratio} Normal [facility] Comment on above: Performed By: #### B MP, LIPA, YVETTE, LIVER #### [facility] [address] [place] [address] Dr. Idania Roldan ALP [Catalytic activity/Vol] 110 U/L Normal 46-116 [facility] Comment on above: Performed By: #### B MP, LIPA, YVETTE, LIVER #### [facility] [address] [place] [address] Dr. Idania Roldan ALT [Catalytic activity/Vol] 20 U/L Normal 14-59 [facility] Comment on above: Performed By: #### B MP, LIPA, YVETTE, LIVER #### [facility] [address] [place] [address] Dr. Idania Roldan AST [Catalytic activity/Vol] 11 U/L Critically low 15-37 [facility] Comment on above: Performed By: #### B MP, LIPA, YVETTE, LIVER #### [facility] [address] [place] [address] Dr. Idania Roldan BILI, CONJUGATED 0.1 mg/dL Normal 0.0-0.2 [facility] Comment on above: Performed By: #### B MP, LIPA, YVETTE, LIVER #### [facility] [address] [place] [address] Dr. Idania Roldan Bilirubin [Mass/Vol] 0.3 mg/dL Normal 0.2-1.0 [facility] Comment on above: Performed By: #### B MP, LIPA, YVETTE, LIVER #### [facility] [address] [place] [address] Dr. Idania oRldan Globulin (S) [Mass/Vol] 4.4 g/dL Normal [facility] Comment on above: Performed By: #### B MP, LIPA, YVETTE, LIVER #### [facility] [address] [place] [address] Dr. Idania Roldan Protein [Mass/Vol] 8.5 g/dL Critically high 6.4-8.2 [facility] Comment on above: Performed By: #### B MP, LIPA, YVETTE, LIVER #### [facility] [address] [place] [address] Dr. Idania Roldan PROF CHEM 8 (BAS METB)on Anion gap [Moles/Vol] 13.5 mmol/L Normal [facility] Comment on above: Performed By: #### B MP, LIPA, YVETTE, LIVER #### [facility] [address] [address] [address] Idania Roldan Calcium [Mass/Vol] 9.3 mg/dL Normal 8.5-10.1 [facility] Comment on above: Performed By: #### B MP, LIPA, YVETTE, LIVER #### [facility] [address] [address] [address] Idania Roldan Chloride [Moles/Vol] 105 mmol/L Normal 98-107 [facility] Comment on above: Performed By: #### B MP, LIPA, YVETTE, LIVER #### [facility] [address] [address] [address] Idania Roldan CO2 [Moles/Vol] 27.2 mmol/L Normal 21.0-32.0 [facility] Comment on above: Performed By: #### B MP, LIPA, YVETTE, LIVER #### [facility] [address] [address] [address] Idania Roldan Creatinine [Mass/Vol] 0.74 mg/dL Normal 0.55-1.02 [facility] Comment on above: Performed By: #### B MP, LIPA, YVETTE, LIVER #### [facility] [address] [address] [address] Idania Roldan EGFR-AF MALAWIAN >60 Normal >=60 [facility] Comment on above: Performed By: #### B MP, LIPA, YVETTE, LIVER #### [facility] [address] [address] [address] Idania Roldan EGFR-NON AF MALAWIAN >60 Normal >=60 [facility] Comment on above: Performed By: #### B MP, LIPA, YVETTE, LIVER #### [facility] [address] [address] [address] Idania Roldan Glucose [Mass/Vol] 97 mg/dL Normal 74-106 [facility] Comment on above: Performed By: #### B MP, LIPA, YVETTE, LIVER #### [facility] [address] [address] [address] Idania Roldan Potassium [Moles/Vol] 3.7 mmol/L Normal 3.5-5.1 [facility] Comment on above: Performed By: #### B MP, LIPA, YVETTE, LIVER #### [facility] [address] [place] [address] Dr. Idania Roldan Sodium [Moles/Vol] 142 mmol/L Normal 136-145 [facility] Comment on above: Performed By: #### B MP, LIPA, YVETTE, LIVER #### [facility] [address] [place] [address] Dr. Idania Roldan Urea nitrogen [Mass/Vol] 13.0 mg/dL Normal 7.0-18.0 [facility] Comment on above: Performed By: #### B MP, LIPA, YVETTE, LIVER #### [facility] [address] [place] [address] Dr. Idania Roldan Urea nitrogen/Creatinine [Mass ratio] 17.6 mg/mg Normal [facility] Comment on above: Performed By: #### B MP, LIPA, YVETTE, LIVER #### [facility] [address] [place] [address] Dr. Idania Roldan URINE MICROSCOPIC ONLYon BACTERIA NONE SEEN Normal NONE SEEN [facility] Comment on above: Performed By: #### B MP, LIPA, YVETTE, LIVER #### [facility] [address] [place] [address] Dr. Idania Roldan Bacteria identified Cx Nom (U) NOT INDICATED Normal [facility] Comment on above: Performed By: #### B MP, LIPA, YVETTE, LIVER #### [facility] [address] [place] [address] Dr. Idania Roldan CAST NONE SEEN Normal NONE SEEN [facility] Comment on above: Performed By: #### B MP, LIPA, YVETTE, LIVER #### [facility] [address] [place] [address] Dr. Idania Roldan Crystals LM Nom (Urine sed) NONE SEEN Normal NONE SEEN [facility] Comment on above: Performed By: #### B MP, LIPA, YVETTE, LIVER #### [facility] [address] [place] [address] Dr. Idania Roldan Epithelial cells LM Ql (Urine sed) FEW Abnormal NONE SEEN /RARE [facility] Comment on above: Performed By: #### B MP, LIPA, YVETTE, LIVER #### [facility] [address] [place] [address] Dr. Idania Roldan MUCOUS NONE SEEN Normal NONE SEEN [facility] Comment on above: Performed By: #### B MP, LIPA, YVETTE, LIVER #### [facility] [address] [place] [address] Dr. Idania Roldan RBC (U) [#/Vol] /uL Abnormal 0-2 [facility] Comment on above: Performed By: #### B MP, LIPA, YVETTE, LIVER #### [facility] [address] [place] [address] Dr. Idania Roldan WBC NONE SEEN Normal NONE SEEN [facility] Comment on above: Performed By: #### B MP, LIPA, YVETTE, LIVER #### [facility] [address] [place] [address] Dr. Idania Roldan XR KUB 1 VIEWon [...] DENILSON AUSTIN Date: 2023-01-24 19:51 Normal [facility] AMYLASEon 01-21-2023 Amylase [Catalytic activity/Vol] 64 U/L Normal 25-115 [facility] Comment on above: Performed By: #### P T, PTT #### [facility] [address] [place] [address] Dr. Idania Roldan CBC AUTO DIFFon 01-21-2023 BASO # 0.0 103/ul Normal 0.0-0.1 [facility] Comment on above: Performed By: #### B MP, LIPA, YVETTE, LIVER #### [facility] [address] [place] [address] Dr. Idania Roldan Basophils/100 WBC (Bld) 0.2 % Normal 0.2-2.0 [facility] Comment on above: Performed By: #### B MP, LIPA, YVETTE, LIVER #### [facility] [address] [place] [address] Dr. Idania Roldan EO # 0.1 103/ul Normal 0.0-0.7 [facility] Comment on above: Performed By: #### B MP, LIPA, YVETTE, LIVER #### [facility] [address] [place] [address] Dr. Idania Roldan Eosinophils/100 WBC (Bld) 0.9 % Normal 0.9-7.0 [facility] Comment on above: Performed By: #### B MP, LIPA, YVETTE, LIVER #### [facility] [address] [place] [address] Dr. Idania Roldan Erythrocyte distribution width (RBC) [Ratio] 17.2 % Critically high 11.0-15.0 [facility] Comment on above: Performed By: #### B MP, LIPA, YVETTE, LIVER #### [facility] [address] [place] [address] Dr. Idania Roldan Hematocrit (Bld) [Volume fraction] 32.5 % Critically low 36.0-48.0 [facility] Comment on above: Performed By: #### B MP, LIPA, YVETTE, LIVER #### [facility] [address] [place] [address] Dr. Idania Roldan Hemoglobin (Bld) [Mass/Vol] 9.5 g/dL Critically low 12.0-16.0 [facility] Comment on above: Performed By: #### B MP, LIPA, YVETTE, LIVER #### [facility] [address] [place] [address] Dr. Idania Roldan IG # 0.01 10e3/ul Normal 0.00-0.03 [facility] Comment on above: Performed By: #### B MP, LIPA, YVETTE, LIVER #### [facility] [address] [place] [address] Dr. Idania Roldan IG % 0.2 % Normal 0.0-0.5 [facility] Comment on above: Performed By: #### B MP, LIPA, YVETTE, LIVER #### [facility] [address] [place] [address] Dr. Idania Roldan LYMPH # 2.0 103/ul Normal 1.2-3.8 [facility] Comment on above: Performed By: #### B MP, LIPA, YVETTE, LIVER #### [facility] [address] [place] [address] Dr. Idania Roldan Lymphocytes/100 WBC (Bld) 34.7 % Normal 20.5-60.0 [facility] Comment on above: Performed By: #### B MP, LIPA, YVETTE, LIVER #### [facility] [address] [place] [address] Dr. Idania Roldan MANUAL DIFF REQ NO Normal [facility] Comment on above: Performed By: #### B MP, LIPA, YVETTE, LIVER #### [facility] [address] [place] [address] Dr. Idania Roldan MCH (RBC) [Entitic mass] 20.5 pg Critically low 26.7-34.0 [facility] Comment on above: Performed By: #### B MP, LIPA, YVETTE, LIVER #### [facility] [address] [place] [address] Dr. Idania Roldan MCHC (RBC) [Mass/Vol] 29.2 g/dL Critically low 29.9-35.2 [facility] Comment on above: Performed By: #### B MP, LIPA, YVETTE, LIVER #### [facility] [address] [place] [address] Dr. Idania Roldan MCV (RBC) [Entitic vol] 70.2 fL Critically low 81.0-99.0 [facility] Comment on above: Performed By: #### B MP, LIPA, YVETTE, LIVER #### [facility] [address] [place] [address] Dr. Idania Roldan MONO # 0.5 103/ul Normal 0.3-0.8 [facility] Comment on above: Performed By: #### B MP, LIPA, YVETTE, LIVER #### [facility] [address] [place] [address] Dr. Idania Roldan Monocytes/100 WBC (Bld) 8.7 % Normal 1.7-12.0 [facility] Comment on above: Performed By: #### B MP, LIPA, YVETTE, LIVER #### [facility] [address] [place] [address] Dr. Idania Roldan NEUT # 3.2 103/ul Normal 1.4-6.5 [facility] Comment on above: Performed By: #### B MP, LIPA, YVETTE, LIVER #### [facility] [address] [place] [address] Dr. Idania Roldan Neutrophils/100 WBC (Bld) 55.3 % Normal 43.0-75.0 [facility] Comment on above: Performed By: #### B MP, LIPA, YVETTE, LIVER #### [facility] [address] [place] [address] Dr. Idania Roldan Platelet mean volume (Bld) [Entitic vol] 9.7 fL Normal 9.5-13.5 [facility] Comment on above: Performed By: #### B MP, LIPA, YVETTE, LIVER #### [facility] [address] [place] [address] Dr. Idania Roldan PLT 310 103/ul Normal 150-450 [facility] Comment on above: Performed By: #### B MP, LIPA, YVETTE, LIVER #### [facility] [address] [place] [address] Dr. Idania Roldan RBC 4.63 106/ul Normal 4.20-5.40 [facility] Comment on above: Performed By: #### B MP, LIPA, YVETTE, LIVER #### [facility] [address] [place] [address] Dr. Idania Roldan WBC 5.8 103/ul Normal 4.0-11.0 [facility] Comment on above: Performed By: #### B MP, LIPA, YVETTE, LIVER #### [facility] [address] [place] [address] Dr. Idania Roldan CULTURE URINEon 01-21-2023 CULTURE URINE Culture Observations : MODERATE GROWTH OF MIXED GENITAL ALE. NO POTENTIAL PATHOGENS SEEN. Normal [facility] Comment on above: Performed By: #### P T, PTT #### [facility] [address] [place] [address] Dr. Idania Roldan LIPASEon 01-21-2023 Lipase [Catalytic activity/Vol] 251.0 U/L Normal 73.0-393.0 [facility] Comment on above: Performed By: #### P T, PTT #### [facility] [address] [place] [address] Dr. Idania Roldan PROF 14(COMP METB)on 023 Albumin [Mass/Vol] 3.8 g/dL Normal 3.4-5.0 [facility] Comment on above: Performed By: #### P T, PTT #### [facility] [address] [place] [address] Dr. Idania Roldan Albumin/Globulin [Mass ratio] 1.0 {ratio} Normal [facility] Comment on above: Performed By: #### P T, PTT #### [facility] [address] [place] [address] Dr. Idania Roldan ALP [Catalytic activity/Vol] 107 U/L Normal 46-116 [facility] Comment on above: Performed By: #### P T, PTT #### [facility] [address] [place] [address] Dr. Idania Roldan ALT [Catalytic activity/Vol] 17 U/L Normal 14-59 [facility] Comment on above: Performed By: #### P T, PTT #### [facility] [address] [place] [address] Dr. Idania Roldan Anion gap [Moles/Vol] 13.3 mmol/L Normal [facility] Comment on above: Performed By: #### P T, PTT #### [facility] [address] [address] [address] Idania Roldan AST [Catalytic activity/Vol] 9 U/L Critically low 15-37 [facility] Comment on above: Performed By: #### P T, PTT #### [facility] [address] [place] [address] Dr. Idania Roldan Bilirubin [Mass/Vol] 0.3 mg/dL Normal 0.2-1.0 [facility] Comment on above: Performed By: #### P T, PTT #### [facility] [address] [place] [address] Dr. Idania Roldan Calcium [Mass/Vol] 9.0 mg/dL Normal 8.5-10.1 [facility] Comment on above: Performed By: #### P T, PTT #### [facility] [address] [place] [address] Dr. Idania Roldan Chloride [Moles/Vol] 103 mmol/L Normal 98-107 [facility] Comment on above: Performed By: #### P T, PTT #### [facility] [address] [place] [address] Dr. Idania Roldan CO2 [Moles/Vol] 28.2 mmol/L Normal 21.0-32.0 [facility] Comment on above: Performed By: #### P T, PTT #### [facility] [address] [place] [address] Dr. Idania Roldan Creatinine [Mass/Vol] 0.81 mg/dL Normal 0.55-1.02 [facility] Comment on above: Performed By: #### P T, PTT #### [facility] [address] [place] [address] Dr. Idania Roldan EGFR-AF MALAWIAN >60 Normal >=60 [facility] Comment on above: Performed By: #### P T, PTT #### [facility] [address] [place] [address] Dr. Idania Roldan EGFR-NON AF MALAWIAN >60 Normal >=60 [facility] Comment on above: Performed By: #### P T, PTT #### [facility] [address] [place] [address] Dr. Idania Roldan Globulin (S) [Mass/Vol] 3.9 g/dL Normal [facility] Comment on above: Performed By: #### P T, PTT #### [facility] [address] [address] [address] Idania Roldan Glucose [Mass/Vol] 93 mg/dL Normal 74-106 [facility] Comment on above: Performed By: #### P T, PTT #### [facility] [address] [address] [address] Idania Roldan Potassium [Moles/Vol] 3.5 mmol/L Normal 3.5-5.1 [facility] Comment on above: Performed By: #### P T, PTT #### [facility] [address] [place] [address] Dr. Idania Roldan Protein [Mass/Vol] 7.7 g/dL Normal 6.4-8.2 [facility] Comment on above: Performed By: #### P T, PTT #### [facility] [address] [place] [address] Dr. Idania Roldan Sodium [Moles/Vol] 141 mmol/L Normal 136-145 [facility] Comment on above: Performed By: #### P T, PTT #### [facility] [address] [place] [address] Dr. Idania Roldan Urea nitrogen [Mass/Vol] 11.0 mg/dL Normal 7.0-18.0 [facility] Comment on above: Performed By: #### P T, PTT #### [facility] [address] [place] [address] Dr. Idania Roldan Urea nitrogen/Creatinine [Mass ratio] 13.6 mg/mg Normal [facility] Comment on above: Performed By: #### P T, PTT #### [facility] [address] [place] [address] Dr. Idania Roldan UA RANDOM W/MICROSCOPICon BACTERIA SMALL Abnormal NONE SEEN [facility] Comment on above: Performed By: #### B MP, LIPA, YVETTE, LIVER #### [facility] [address] [address] [address] Idania Roldan Bilirubin Ql (U) SMALL Abnormal NEGATIVE [facility] Comment on above: Performed By: #### B MP, LIPA, YVETTE, LIVER #### [facility] [address] [place] [address] Dr. Idania Roldan CAST NONE SEEN Normal NONE SEEN [facility] Comment on above: Performed By: #### B MP, LIPA, YVETTE, LIVER #### [facility] [address] [address] [address] Idania Roldan Clarity (U) CLEAR Normal CLEAR [facility] Comment on above: Performed By: #### B MP, LIPA, YVETTE, LIVER #### [facility] [address] [place] [address] Dr. Idania Roldan Color (U) DK. YELLOW Normal YELLOW [facility] Comment on above: Performed By: #### B MP, LIPA, YVETTE, LIVER #### [facility] [address] [place] [address] Dr. Idania Roldan Crystals LM Nom (Urine sed) NONE SEEN Normal NONE SEEN [facility] Comment on above: Performed By: #### B MP, LIPA, YVETTE, LIVER #### [facility] [address] [place] [address] Dr. Idania Roldan Epithelial cells LM Ql (Urine sed) FEW Abnormal NONE SEEN /RARE [facility] Comment on above: Performed By: #### B MP, LIPA, YVETTE, LIVER #### [facility] [address] [place] [address] Dr. Idania Roldan Glucose Ql (U) Negative Normal NEGATIVE The [facility] Comment on above: Performed By: #### B MP, LIPA, YVETTE, LIVER #### [facility] [address] [place] [address] Dr. Idania Roldan Hemoglobin Ql (U) LARGE Abnormal NEGATIVE [facility] Comment on above: Performed By: #### B MP, LIPA, YVETTE, LIVER #### [facility] [address] [place] [address] Dr. Idania Roldan Ketones Ql (U) TRACE Abnormal NEGATIVE [facility] Comment on above: Performed By: #### B MP, LIPA, YVETTE, LIVER #### [facility] [address] [place] [address] Dr. Idania Roldan LEUKOCYTES Negative Normal NEGATIVE [facility] Comment on above: Performed By: #### B MP, LIPA, YVETTE, LIVER #### [facility] [address] [address] [address] Idania Roldan MUCOUS MODERATE Abnormal NONE SEEN [facility] Comment on above: Performed By: #### B MP, LIPA, YVETTE, LIVER #### [facility] [address] [address] [address] Idania Roldan Nitrite Ql (U) Negative Normal NEGATIVE [facility] Comment on above: Performed By: #### B MP, LIPA, YVETTE, LIVER #### [facility] [address] [place] [address] Dr. Idania Roldan pH (U) 5.0 [pH] Normal 5-9 [facility] Comment on above: Performed By: #### B MP, LIPA, YVETTE, LIVER #### [facility] [address] [place] [address] Dr. Idania Roldan RBC (U) [#/Vol] /uL Abnormal 0-[address] [facility] Comment on above: Performed By: #### B MP, LIPA, YVETTE, LIVER #### [facility] [address] [place] [address] Dr. Idania Roldan SPEC GRAVITY >=1.030 Abnormal 1.005-<=1.[address] [place] [address] Comment on above: Performed By: #### B MP, LIPA, YVETTE, LIVER #### [facility] [address] [place] [address] Dr. Idania Roldan UA PROTEIN TRACE Normal NEGATIVE/ TRACE [facility] Comment on above: Performed By: #### B MP, LIPA, YVETTE, LIVER #### [facility] [address] [place] [address] Dr. Idania Roldan Urobilinogen Qn (U) 0.2 {Bryan'U}/dL Normal 0.2 - 1. 0 [facility] Comment on above: Performed By: #### B MP, LIPA, YVETTE, LIVER #### [facility] [address] [address] [address] Idania Roldan WBC 0-2 Abnormal NONE SEEN [facility] Comment on above: Performed By: #### B MP, LIPA, YVETTE, LIVER #### [facility] [address] [address] [address] Idania Roldan Covid-19 PCR (CVDTBH)on 09-11 SARS-CoV-2 (COVID-19) RNA MAMIE+probe Ql (Unsp spec) Detected Critically abnormal NOT DETECTED [facility] Comment on above: Result Comment: This test is not yet approved or cleared by the [place] FDA. When there are no FDA-approved or cleared tests available, and other criteria are met, FDA can make tests available under an emergency access mechanism called an Emergency Use Authorization (EUA). The EUA for this test is supported by the [place] and Human Service's (HHS's) declaration [...] used). Performed By: #### C VDTBH #### [facility] [address] [place] [address] Dr. Idania Roldan INFLUENZA A AND B AGon 10-06 INFLUANEGH SEE BELOW Normal [facility] Comment on above: Result Comment: Nega tive for Flu A protein angiten. Infection due to Flu A cannot be ruled out. Flu A angiten in the sample may be below the detection limit of the test. Performed By: #### P T, PTT #### [facility] [address] [place] [address] Dr. Idania Roldan INFLUBNEGH SEE BELOW Normal [facility] Comment on above: Result Comment: Nega tive for Flu B protein antigen. Infection due to Flu B cannot be ruled out. Flu B antigen in the sample may be below the detection limit of the test. Performed By: #### P T, PTT #### [facility] [address] [place] [address] Dr. Idania Roldan INFLUENZA A AG Negative Normal NEGATIVE SEE COMMENT [facility] Comment on above: Performed By: #### P T, PTT #### [facility] [address] [place] [address] Dr. Idania Roldan INFLUENZA B AG Negative Normal NEGATIVE SEE COMMENT [facility] Comment on above: Performed By: #### P T, PTT #### [facility] [address] [place] [address] Dr. Idania Roldan INTERNAL CONTROLS Within Normal Limits Normal Wi thin Normal Limits [facility] Comment on above: Performed By: #### P T, PTT #### [facility] [address] [place] [address] Dr. Idania Roldan AMYLASEon 09-30-2022 Amylase [Catalytic activity/Vol] 62 U/L Normal 25-115 [facility] Comment on above: Performed By: #### B MP, LIPA, YVETTE, LIVER #### [facility] [address] [place] [address] Dr. Idania Roldan CBC AUTO DIFFon 09-30-2022 BASO # 0.0 103/ul Normal 0.0-0.1 [facility] Comment on above: Performed By: #### C BC #### [facility] [address] [place] [address] Dr. Idania Roldan Basophils/100 WBC (Bld) 0.3 % Normal 0.2-2.0 [facility] Comment on above: Performed By: #### C BC #### [facility] [address] [place] [address] Dr. Idania Roldan EO # 0.1 103/ul Normal 0.0-0.7 [facility] Comment on above: Performed By: #### C BC #### [facility] [address] [place] [address] Dr. Idania Roldan Eosinophils/100 WBC (Bld) 1.2 % Normal 0.9-7.0 [facility] Comment on above: Performed By: #### C BC #### [facility] [address] [place] [address] Dr. Idania Roldan Erythrocyte distribution width (RBC) [Ratio] 14.8 % Normal 11.0-15.0 [facility] Comment on above: Performed By: #### C BC #### [facility] [address] [place] [address] Dr. Idania Roldan Hematocrit (Bld) [Volume fraction] 31.8 % Critically low 36.0-48.0 [facility] Comment on above: Performed By: #### C BC #### [facility] [address] [place] [address] Dr. Idania Roldan Hemoglobin (Bld) [Mass/Vol] 9.6 g/dL Critically low 12.0-16.0 [facility] Comment on above: Performed By: #### C BC #### [facility] [address] [place] [address] Dr. Idania Roldan IG # 0.01 10e3/ul Normal 0.00-0.03 [facility] Comment on above: Performed By: #### C BC #### [facility] [address] [place] [address] Dr. Idania Roldan IG % 0.1 % Normal 0.0-0.5 [facility] Comment on above: Performed By: #### C BC #### [facility] [address] [place] [address] Dr. Idania Roldan LYMPH # 3.3 103/ul Normal 1.2-3.8 [facility] Comment on above: Performed By: #### C BC #### [facility] [address] [place] [address] Dr. Idania Roldan Lymphocytes/100 WBC (Bld) 45.4 % Normal 20.5-60.0 [facility] Comment on above: Performed By: #### C BC #### [facility] [address] [place] [address] Dr. Idania Roldan MANUAL DIFF REQ NO Normal [facility] Comment on above: Performed By: #### C BC #### [facility] [address] [place] [address] Dr. Idania Roldan MCH (RBC) [Entitic mass] 22.7 pg Critically low 26.7-34.0 [facility] Comment on above: Performed By: #### C BC #### [facility] [address] [place] [address] Dr. Idania Roldan MCHC (RBC) [Mass/Vol] 30.2 g/dL Normal 29.9-35.2 [facility] Comment on above: Performed By: #### C BC #### [facility] [address] [place] [address] Dr. Idania Roldan MCV (RBC) [Entitic vol] 75.4 fL Critically low 81.0-99.0 [facility] Comment on above: Performed By: #### C BC #### [facility] [address] [place] [address] Dr. Idania Roldan MONO # 0.5 103/ul Normal 0.3-0.8 [facility] Comment on above: Performed By: #### C BC #### [facility] [address] [place] [address] Dr. Idania Roldan Monocytes/100 WBC (Bld) 6.2 % Normal 1.7-12.0 [facility] Comment on above: Performed By: #### C BC #### [facility] [address] [place] [address] Dr. Idania Roldan NEUT # 3.4 103/ul Normal 1.4-6.5 [facility] Comment on above: Performed By: #### C BC #### [facility] [address] [place] [address] Dr. Idania Roldan Neutrophils/100 WBC (Bld) 46.8 % Normal 43.0-75.0 [facility] Comment on above: Performed By: #### C BC #### [facility] [address] [place] [address] Dr. Idania Roldan Platelet mean volume (Bld) [Entitic vol] 8.5 fL Critically low 9.5-13.5 [facility] Comment on above: Performed By: #### C BC #### [facility] [address] [place] [address] Dr. Idania Roldan PLT 273 103/ul Normal 150-450 [facility] Comment on above: Performed By: #### C BC #### [facility] [address] [place] [address] Dr. Idania Roldan RBC 4.22 106/ul Normal 4.20-5.40 [facility] Comment on above: Performed By: #### C BC #### [facility] [address] [place] [address] Dr. Idania Roldan WBC 7.2 103/ul Normal 4.0-11.0 [facility] Comment on above: Performed By: #### C BC #### [facility] [address] [place] [address] Dr. Idania Roldan CULTURE URINEon 09-30-2022 CULTURE URINE Culture Observations : MODERATE GROWTH OF MIXED GENITAL ALE. NO POTENTIAL PATHOGENS SEEN. Normal [facility] Comment on above: Performed By: #### P T, PTT #### [facility] [address] [place] [address] Dr. Idania Roldan LIPASEon 09-30-2022 Lipase [Catalytic activity/Vol] 256.0 U/L Normal 73.0-393.0 [facility] Comment on above: Performed By: #### B MP, LIPA, YVETTE, LIVER #### [facility] [address] [place] [address] Dr. Idania Roldan PROF 14(COMP METB)on 022 Albumin [Mass/Vol] 4.1 g/dL Normal 3.4-5.0 [facility] Comment on above: Performed By: #### B MP, LIPA, YVETTE, LIVER #### [facility] [address] [place] [address] Dr. Idania Roldan Albumin/Globulin [Mass ratio] 1.0 {ratio} Normal [facility] Comment on above: Performed By: #### B MP, LIPA, YVETTE, LIVER #### [facility] [address] [place] [address] Dr. Idania Roldan ALP [Catalytic activity/Vol] 93 U/L Normal 46-116 [facility] Comment on above: Performed By: #### B MP, LIPA, YVETTE, LIVER #### [facility] [address] [address] [address] Idania Roldan ALT [Catalytic activity/Vol] 13 U/L Critically low 14-59 [facility] Comment on above: Performed By: #### B MP, LIPA, YVETTE, LIVER #### [facility] [address] [place] [address] Dr. Idania Roldan Anion gap [Moles/Vol] 9.8 mmol/L Normal [facility] Comment on above: Performed By: #### B MP, LIPA, YVETTE, LIVER #### [facility] [address] [place] [address] Dr. Idania Roldan AST [Catalytic activity/Vol] 12 U/L Critically low 15-37 [facility] Comment on above: Performed By: #### B MP, LIPA, YVETTE, LIVER #### [facility] [address] [place] [address] Dr. Idania Roldan Bilirubin [Mass/Vol] 0.2 mg/dL Normal 0.2-1.0 [facility] Comment on above: Performed By: #### B MP, LIPA, YVETTE, LIVER #### [facility] [address] [place] [address] Dr. Idania Roldan Calcium [Mass/Vol] 9.2 mg/dL Normal 8.5-10.1 [facility] Comment on above: Performed By: #### B MP, LIPA, YVETTE, LIVER #### [facility] [address] [place] [address] Dr. Idania Roldan Chloride [Moles/Vol] 101 mmol/L Normal 98-107 [facility] Comment on above: Performed By: #### B MP, LIPA, YVETTE, LIVER #### [facility] [address] [place] [address] Dr. Idania Roldan CO2 [Moles/Vol] 31.8 mmol/L Normal 21.0-32.0 [facility] Comment on above: Performed By: #### B MP, LIPA, YVETTE, LIVER #### [facility] [address] [place] [address] Dr. Idania Roldan Creatinine [Mass/Vol] 0.71 mg/dL Normal 0.55-1.02 [facility] Comment on above: Performed By: #### B MP, LIPA, YVETTE, LIVER #### [facility] [address] [place] [address] Dr. Idania Roldan EGFR-AF MALAWIAN >60 Normal >=60 [facility] Comment on above: Performed By: #### B MP, LIPA, YVETTE, LIVER #### [facility] [address] [place] [address] Dr. Idania Roldan EGFR-NON AF MALAWIAN >60 Normal >=60 [facility] Comment on above: Performed By: #### B MP, LIPA, YVETTE, LIVER #### [facility] [address] [place] [address] Dr. Idania Roldan Globulin (S) [Mass/Vol] 4.0 g/dL Normal [facility] Comment on above: Performed By: #### B MP, LIPA, YVETTE, LIVER #### [facility] [address] [place] [address] Dr. Idania Roldan Glucose [Mass/Vol] 92 mg/dL Normal 74-106 [facility] Comment on above: Performed By: #### B MP, LIPA, YVETTE, LIVER #### [facility] [address] [place] [address] Dr. Idania Roldan Potassium [Moles/Vol] 3.6 mmol/L Normal 3.5-5.1 [facility] Comment on above: Performed By: #### B MP, LIPA, YVETTE, LIVER #### [facility] [address] [place] [address] Dr. Idania Roldan Protein [Mass/Vol] 8.1 g/dL Normal 6.4-8.2 [facility] Comment on above: Performed By: #### B MP, LIPA, YVETTE, LIVER #### [facility] [address] [place] [address] Dr. Idania Roldan Sodium [Moles/Vol] 139 mmol/L Normal 136-145 [facility] Comment on above: Performed By: #### B MP, LIPA, YVETTE, LIVER #### [facility] [address] [place] [address] Dr. Idania Roldan Urea nitrogen [Mass/Vol] 15.0 mg/dL Normal 7.0-18.0 [facility] Comment on above: Performed By: #### B MP, LIPA, YVETTE, LIVER #### [facility] [address] [place] [address] Dr. Idania Roldan Urea nitrogen/Creatinine [Mass ratio] 21.1 mg/mg Normal [facility] Comment on above: Performed By: #### B MP, LIPA, YVETTE, LIVER #### [facility] [address] [place] [address] Dr. Idania Roldan UA RANDOM W/MICROSCOPICon BACTERIA SMALL Abnormal NONE SEEN [facility] Comment on above: Performed By: #### B MP, LIPA, YVETTE, LIVER #### [facility] [address] [place] [address] Dr. Idania Roldan Bilirubin Ql (U) Negative Normal NEGATIVE [facility] Comment on above: Performed By: #### B MP, LIPA, YVETTE, LIVER #### [facility] [address] [place] [address] Dr. Idania Roldan CAST NONE SEEN Normal NONE SEEN [facility] Comment on above: Performed By: #### B MP, LIPA, YVETTE, LIVER #### [facility] [address] [place] [address] Dr. Idania Roldan Clarity (U) CLEAR Normal CLEAR [facility] Comment on above: Performed By: #### B MP, LIPA, YVETTE, LIVER #### [facility] [address] [place] [address] Dr. Idania Roldan Color (U) YELLOW Normal YELLOW [facility] Comment on above: Performed By: #### B MP, LIPA, YVETTE, LIVER #### [facility] [address] [place] [address] Dr. Idania Roldan Crystals LM Nom (Urine sed) NONE SEEN Normal NONE SEEN [facility] Comment on above: Performed By: #### B MP, LIPA, YVETTE, LIVER #### [facility] [address] [place] [address] Dr. Idania Roldan Epithelial cells LM Ql (Urine sed) FEW Abnormal NONE SEEN /RARE [facility] Comment on above: Performed By: #### B MP, LIPA, YVETTE, LIVER #### [facility] [address] [address] [address] Idania Roldan Glucose Ql (U) Negative Normal NEGATIVE [facility] Comment on above: Performed By: #### B MP, LIPA, YVETTE, LIVER #### [facility] [address] [place] [address] Dr. Idania Roldan Hemoglobin Ql (U) Negative Normal NEGATIVE [facility] Comment on above: Performed By: #### B MP, LIPA, YVETTE, LIVER #### [facility] [address] [place] [address] Dr. Idania Roldan Ketones Ql (U) Negative Normal NEGATIVE [facility] Comment on above: Performed By: #### B MP, LIPA, YVETTE, LIVER #### [facility] [address] [place] [address] Dr. Idania Roldan LEUKOCYTES SMALL Abnormal NEGATIVE [facility] Comment on above: Performed By: #### B MP, LIPA, YVETTE, LIVER #### [facility] [address] [place] [address] Dr. Idania Roldan MUCOUS TRACE Abnormal NONE SEEN [facility] Comment on above: Performed By: #### B MP, LIPA, YVETTE, LIVER #### [facility] [address] [place] [address] Dr. Idania Roldan Nitrite Ql (U) Negative Normal NEGATIVE [facility] Comment on above: Performed By: #### B MP, LIPA, YVETTE, LIVER #### [facility] [address] [place] [address] Dr. Idania Roldan pH (U) 7.0 [pH] Normal 5-9 [facility] Comment on above: Performed By: #### B MP, LIPA, YVETTE, LIVER #### [facility] [address] [place] [address] Dr. Idania Roldan RBC NONE SEEN Abnormal 0-2 [facility] Comment on above: Performed By: #### B MP, LIPA, YVETTE, LIVER #### [facility] [address] [place] [address] Dr. Idania Roldan SPEC GRAVITY 1.015 Normal 1.005-<=1.02 5 [facility] Comment on above: Performed By: #### B MP, LIPA, YVETTE, LIVER #### [facility] [address] [place] [address] Dr. Idania Roldan UA PROTEIN Negative Normal NEGATIVE/ TRACE [facility] Comment on above: Performed By: #### B MP, LIPA, YVETTE, LIVER #### [facility] [address] [place] [address] Dr. Idania Roldan Urobilinogen Qn (U) 0.2 {Bryan'U}/dL Normal 0.2 - 1. 0 [facility] Comment on above: Performed By: #### B MP, LIPA, YVETTE, LIVER #### [facility] [address] [place] [address] Dr. Idania Roldan WBC 5-10 Abnormal NONE SEEN [facility] Comment on above: Performed By: #### B MP, LIPA, YVETTE, LIVER #### [facility] [address] [place] [address] Dr. Idania Roldan [facility] SARS-CoV-2 (COVID-19) RNA MAMIE+probe Ql (Unsp spec) Not detected Normal NOT DETECTED [facility] Comment on above: Result Comment: This test is not yet approved or cleared by the [place] FDA. When there are no FDA-approved or cleared tests available, and other criteria are met, FDA can make tests available under an emergency access mechanism called an Emergency Use Authorization (EUA). The EUA for this test is supported by the [place] of Health and Human Service's (HHS's) declaration [...] SARS-CoV-2. Performed By: #### C VDTBH #### [facility] [address] [place] [address] Dr. Idania Roldan INFLUENZA A AND B [facility] 09-21 [facility] SEE BELOW Normal [facility] Comment on above: Result Comment: Nega tive for Flu A protein angiten. Infection due to Flu A cannot be ruled out. Flu A angiten in the sample may be below the detection limit of the test. Performed By: #### B MP, LIPA, YVETTE, LIVER #### [facility] [address] [place] [address] Dr. Idania Roldan [facility] SEE BELOW Normal [facility] Comment on above: Result Comment: Nega tive for Flu B protein antigen. Infection due to Flu B cannot be ruled out. Flu B antigen in the sample may be below the detection limit of the test. Performed By: #### B MP, LIPA, YVETTE, LIVER #### [facility] [address] [place] [address] Dr. Idania Roldan INFLUENZA A AG Negative Normal NEGATIVE SEE COMMENT [facility] Comment on above: Performed By: #### B MP, LIPA, YVETTE, LIVER #### [facility] [address] [place] [address] Dr. Idania Roldan INFLUENZA B AG Negative Normal NEGATIVE SEE COMMENT [facility] Comment on above: Performed By: #### B MP, LIPA, YVETTE, LIVER #### [facility] [address] [place] [address] Dr. Idania Roldan INTERNAL CONTROLS Within Normal Limits Normal Wi thin Normal Limits [facility] Comment on above: Performed By: #### B MP, LIPA, YVETTE, LIVER #### [facility] [address] [place] [address] Dr. Idania Rlodan [facility]-19 PCR [facility]on 08-11 SARS-CoV-2 (COVID-19) RNA MAMIE+probe Ql (Unsp spec) Not detected Normal NOT DETECTED [facility] Comment on above: Result Comment: This test is not yet approved or cleared by the [place] FDA. When there are no FDA-approved or cleared tests available, and other criteria are met, FDA can make tests available under an emergency access mechanism called an Emergency Use Authorization (EUA). The EUA for this test is supported by the [place] of Health and Human Service's (HHS's) declaration [...] consistent with SARS-CoV-2. Performed By: #### B BOB MOCTEZUMAChristine, YVETTE, LIVER #### [facility] [address] [place] [address] Dr. Idania Roldan CBC AUTO DIFFon 08-21-2022 BASO # 0.0 103/ul Normal 0.0-0.1 [facility] Comment on above: Performed By: #### P T, PTT #### [facility] [address] [place] [address] Dr. Idania Roldan Basophils/100 WBC (Bld) 0.4 % Normal 0.2-2.0 [facility] Comment on above: Performed By: #### P T, PTT #### [facility] [address] [place] [address] Dr. Idania Roldan EO # 0.1 103/ul Normal 0.0-0.7 [facility] Comment on above: Performed By: #### P T, PTT #### [facility] [address] [place] [address] Dr. Idania Roldan Eosinophils/100 WBC (Bld) 1.3 % Normal 0.9-7.0 [facility] Comment on above: Performed By: #### P T, PTT #### [facility] [address] [place] [address] Dr. Idania Roldan Erythrocyte distribution width (RBC) [Ratio] 15.3 % Critically high 11.0-15.0 [facility] Comment on above: Performed By: #### P T, PTT #### [facility] [address] [place] [address] Dr. Idania Roldan Hematocrit (Bld) [Volume fraction] 32.1 % Critically low 36.0-48.0 [facility] Comment on above: Performed By: #### P T, PTT #### [facility] [address] [place] [address] Dr. Idania Roldan Hemoglobin (Bld) [Mass/Vol] 9.9 g/dL Critically low 12.0-16.0 [facility] Comment on above: Performed By: #### P T, PTT #### [facility] [address] [place] [address] Dr. Idania Roldan IG # 0.01 10e3/ul Normal 0.00-0.03 [facility] Comment on above: Performed By: #### P T, PTT #### [facility] [address] [place] [address] Dr. Idania Roldan IG % 0.1 % Normal 0.0-0.5 [facility] Comment on above: Performed By: #### P T, PTT #### [facility] [address] [place] [address] Dr. Idania Roldan LYMPH # 2.7 103/ul Normal 1.2-3.8 [facility] Comment on above: Performed By: #### P T, PTT #### [facility] [address] [place] [address] Dr. Idania Roldan Lymphocytes/100 WBC (Bld) 35.7 % Normal 20.5-60.0 [facility] Comment on above: Performed By: #### P T, PTT #### [facility] [address] [place] [address] Dr. Idania Roldan MANUAL DIFF REQ NO Normal [facility] Comment on above: Performed By: #### P T, PTT #### [facility] [address] [place] [address] Dr. Idania Roldan MCH (RBC) [Entitic mass] 24.8 pg Critically low 26.7-34.0 [facility] Comment on above: Performed By: #### P T, PTT #### [facility] [address] [place] [address] Dr. Idania Roldan MCHC (RBC) [Mass/Vol] 30.8 g/dL Normal 29.9-35.2 [facility] Comment on above: Performed By: #### P T, PTT #### [facility] [address] [place] [address] Dr. Idania Roldan MCV (RBC) [Entitic vol] 80.5 fL Critically low 81.0-99.0 [facility] Comment on above: Performed By: #### P T, PTT #### [facility] [address] [place] [address] Dr. Idania Roldan MONO # 0.5 103/ul Normal 0.3-0.8 [facility] Comment on above: Performed By: #### P T, PTT #### [facility] [address] [place] [address] Dr. Idania Roldan Monocytes/100 WBC (Bld) 6.1 % Normal 1.7-12.0 [facility] Comment on above: Performed By: #### P T, PTT #### [facility] [address] [place] [address] Dr. Idania Roldan NEUT # 4.2 103/ul Normal 1.4-6.5 [facility] Comment on above: Performed By: #### P T, PTT #### [facility] [address] [place] [address] Dr. Idania Roldan Neutrophils/100 WBC (Bld) 56.4 % Normal 43.0-75.0 [facility] Comment on above: Performed By: #### P T, PTT #### [facility] [address] [address] [address] Idania Roldan Platelet mean volume (Bld) [Entitic vol] 9.4 fL Critically low 9.5-13.5 [facility] Comment on above: Performed By: #### P T, PTT #### [facility] [address] [address] [address] Idania Roldan PLT 296 103/ul Normal 150-450 [facility] Comment on above: Performed By: #### P T, PTT #### [facility] [address] [address] [address] Idania Roldan RBC 3.99 106/ul Critically low 4.20-5.40 [facility] Comment on above: Performed By: #### P T, PTT #### [facility] [address] [address] [address] Idania Roldan WBC 7.5 103/ul Normal 4.0-11.0 [facility] Comment on above: Performed By: #### P T, PTT #### [facility] [address] [address] ABD/PELV W CONon [...] RUSSELL DUFF Date: 2022-08-21 12:35 Normal [facility] ER URINE PROFILEon 2 Bilirubin Ql (U) Unable to perform te sting due to color interference. Abnormal NEGATIVE [facility] Comment on above: Performed By: #### B MP, LIPA, YVETTE, LIVER #### [facility] [address] [place] [address] Dr. Idania Roldan Clarity (U) TURBID Abnormal CLEAR [facility] Comment on above: Performed By: #### B MP, LIPA, YVETTE, LIVER #### [facility] [address] [place] [address] Dr. Idania Roldan Color (U) RED Abnormal YELLOW [facility] Comment on above: Performed By: #### B MP, LIPA, YVETTE, LIVER #### [facility] [address] [place] [address] Dr. Idania Roldan ERUAHD A micrscopic examina tion will be performed if indicated. Normal [facility] Comment on above: Performed By: #### B MP, LIPA, YVETTE, LIVER #### [facility] [address] [address] [address] Idania Roldan Glucose Ql (U) Unable to perform te sting due to color interference. Abnormal NEGATIVE [facility] Comment on above: Performed By: #### B MP, LIPA, YVETTE, LIVER #### [facility] [address] [address] [address] Idania Roldan Hemoglobin Ql (U) Unable to perform te sting due to color interference. Abnormal NEGATIVE [facility] Comment on above: Performed By: #### B MP, LIPA, YVETTE, LIVER #### [facility] [address] [place] [address] Dr. Idania Roldan Ketones Ql (U) Unable to perform te sting due to color interference. Abnormal NEGATIVE [facility] Comment on above: Performed By: #### B MP, LIPA, YVETTE, LIVER #### [facility] [address] [place] [address] Dr. Idania Roldan LEUKOCYTES Unable to perform te sting due to color interference. Abnormal NEGATIVE [facility] Comment on above: Performed By: #### B MP, LIPA, YVETTE, LIVER #### [facility] [address] [place] [address] Dr. Idania Roldan Nitrite Ql (U) Unable to perform te sting due to color interference. Abnormal NEGATIVE [facility] Comment on above: Performed By: #### B MP, LIPA, YVETTE, LIVER #### [facility] [address] [place] [address] Dr. Idania Roldan pH Unable to perform te sting due to color interference. Abnormal 5-9 [facility] Comment on above: Performed By: #### B MP, LIPA, YVETTE, LIVER #### [facility] [address] [place] [address] Dr. Idania Roldan SPEC GRAVITY 1.020 Normal 1.005-<=1.02 5 [facility] Comment on above: Performed By: #### B MP, LIPA, YVETTE, LIVER #### [facility] [address] [place] [address] Dr. Idania Roldan UA PROTEIN Unable to perform te sting due to color interference. Normal NEGATIVE/ TRACE [facility] Comment on above: Performed By: #### B MP, LIPA, YVETTE, LIVER #### [facility] [address] [place] [address] Dr. Idania Roldan UR MICRO IND INDICATED Normal [facility] Comment on above: Performed By: #### B MP, LIPA, YVETTE, LIVER #### [facility] [address] [place] [address] Dr. Idania Roldan UROBILINOGEN Unable to perform te sting due to color interference. Normal 0.2 - 1.0 [facility] Comment on above: Performed By: #### B MP, LIPA, YVETTE, LIVER #### [facility] [address] [address] [address] Idania Roldan PROF 14(COMP METB)on 022 Albumin [Mass/Vol] 4.2 g/dL Normal 3.4-5.0 [facility] Comment on above: Performed By: #### P T, PTT #### [facility] [address] [place] [address] Dr. Idania Roldan Albumin/Globulin [Mass ratio] 1.0 {ratio} Normal [facility] Comment on above: Performed By: #### P T, PTT #### [facility] [address] [place] [address] Dr. Idania Roldan ALP [Catalytic activity/Vol] 91 U/L Normal 46-116 [facility] Comment on above: Performed By: #### P T, PTT #### [facility] [address] [place] [address] Dr. Idania Roldan ALT [Catalytic activity/Vol] 15 U/L Normal 14-59 [facility] Comment on above: Performed By: #### P T, PTT #### [facility] [address] [place] [address] Dr. Idania Roldan Anion gap [Moles/Vol] 9.6 mmol/L Normal [facility] Comment on above: Performed By: #### P T, PTT #### [facility] [address] [place] [address] Dr. Idania Roldan AST [Catalytic activity/Vol] 14 U/L Critically low 15-37 [facility] Comment on above: Performed By: #### P T, PTT #### [facility] [address] [place] [address] Dr. Idania Roldan Bilirubin [Mass/Vol] 0.2 mg/dL Normal 0.2-1.0 [facility] Comment on above: Performed By: #### P T, PTT #### [facility] [address] [place] [address] Dr. Idania Roldan Calcium [Mass/Vol] 9.2 mg/dL Normal 8.5-10.1 [facility] Comment on above: Performed By: #### P T, PTT #### [facility] [address] [place] [address] Dr. Idania Roldan Chloride [Moles/Vol] 103 mmol/L Normal 98-107 [facility] Comment on above: Performed By: #### P T, PTT #### [facility] [address] [place] [address] Dr. Idania Roldan CO2 [Moles/Vol] 31.2 mmol/L Normal 21.0-32.0 [facility] Comment on above: Performed By: #### P T, PTT #### [facility] [address] [place] [address] Dr. Idania Roldan Creatinine [Mass/Vol] 0.76 mg/dL Normal 0.55-1.02 [facility] Comment on above: Performed By: #### P T, PTT #### [facility] [address] [place] [address] Dr. Idania Roldan EGFR-AF MALAWIAN >60 Normal >=60 [facility] Comment on above: Performed By: #### P T, PTT #### [facility] [address] [place] [address] Dr. Idania Roldan EGFR-NON AF MALAWIAN >60 Normal >=60 [facility] Comment on above: Performed By: #### P T, PTT #### [facility] [address] [place] [address] Dr. Idania Roldan Globulin (S) [Mass/Vol] 4.2 g/dL Normal [facility] Comment on above: Performed By: #### P T, PTT #### [facility] [address] [place] [address] Dr. Idania Roldan Glucose [Mass/Vol] 107 mg/dL Critically high 74-[address] [facility] Comment on above: Performed By: #### P T, PTT #### [facility] [address] [place] [address] Dr. Idania Roldan Potassium [Moles/Vol] 3.8 mmol/L Normal 3.5-5.1 [facility] Comment on above: Performed By: #### P T, PTT #### [facility] [address] [place] [address] Dr. Idania Roldan Protein [Mass/Vol] 8.4 g/dL Critically high 6.4-8.[address] [facility] Comment on above: Performed By: #### P T, PTT #### [facility] [address] [place] [address] Dr. Idania Roldan Sodium [Moles/Vol] 140 mmol/L Normal 136-145 [facility] Comment on above: Performed By: #### P T, PTT #### [facility] [address] [place] [address] Dr. Idania Roldan Urea nitrogen [Mass/Vol] 12.0 mg/dL Normal 7.0-18.0 [facility] Comment on above: Performed By: #### P T, PTT #### [facility] [address] [place] [address] Dr. Idania Roldan Urea nitrogen/Creatinine [Mass ratio] 15.8 mg/mg Normal [facility] Comment on above: Performed By: #### P T, PTT #### [facility] [address] [place] [address] Dr. Idania Roldan URINE MICROSCOPIC ONLYon BACTERIA NONE SEEN Normal NONE SEEN [facility] Comment on above: Performed By: #### B MP, LIPA, YVETTE, LIVER #### [facility] [address] [place] [address] Dr. Idania Roldan Bacteria identified Cx Nom (U) NOT INDICATED Normal [facility] Comment on above: Performed By: #### B MP, LIPA, YVETTE, LIVER #### [facility] [address] [place] [address] Dr. Idania Roldan CAST NONE SEEN Normal NONE SEEN [facility] Comment on above: Performed By: #### B MP, LIPA, YVETTE, LIVER #### [facility] [address] [place] [address] Dr. Idania Roldan Crystals LM Nom (Urine sed) NONE SEEN Normal NONE SEEN [facility] Comment on above: Performed By: #### B MP, LIPA, YVETTE, LIVER #### [facility] [address] [address] [address] Idania Roldan Epithelial cells LM Ql (Urine sed) RARE Normal NONE SEEN /RARE [facility] Comment on above: Performed By: #### B MP, LIPA, YVETTE, LIVER #### [facility] [address] [address] [address] Idania Roldan MUCOUS NONE SEEN Normal NONE SEEN [facility] Comment on above: Performed By: #### B MP, LIPA, YVETTE, LIVER #### [facility] [address] [address] [address] Idania Roldan RBC (U) [#/Vol] /uL Abnormal 0-2 [facility] Comment on above: Performed By: #### B MP, LIPA, YVETTE, LIVER #### [facility] [address] [place] [address] Dr. Idania Roldan WBC 2-5 Abnormal NONE SEEN [facility] Comment on above: Performed By: #### B MP, LIPA, YVETTE, LIVER #### [facility] [address] [address] [address] Idania Roldan CBC AUTO DIFFon 08-19-2022 BASO # 0.0 103/ul Normal 0.0-0.1 [facility] Comment on above: Performed By: #### P T, PTT #### [facility] [address] [address] [address] Idania Roldan Basophils/100 WBC (Bld) 0.4 % Normal 0.2-2.0 [facility] Comment on above: Performed By: #### P T, PTT #### [facility] [address] [address] [address] Idania Roldan EO # 0.1 103/ul Normal 0.0-0.7 [facility] Comment on above: Performed By: #### P T, PTT #### [facility] [address] [address] [address] Idania Roldan Eosinophils/100 WBC (Bld) 2.0 % Normal 0.9-7.0 [facility] Comment on above: Performed By: #### P T, PTT #### [facility] [address] [place] [address] Dr. Idania Roldan Erythrocyte distribution width (RBC) [Ratio] 14.8 % Normal 11.0-15.0 [facility] Comment on above: Performed By: #### P T, PTT #### [facility] [address] [place] [address] Dr. Idania Roldan Hematocrit (Bld) [Volume fraction] 31.5 % Critically low 36.0-48.0 [facility] Comment on above: Performed By: #### P T, PTT #### [facility] [address] [place] [address] Dr. Idania Roldan Hemoglobin (Bld) [Mass/Vol] 9.5 g/dL Critically low 12.0-16.0 [facility] Comment on above: Performed By: #### P T, PTT #### [facility] [address] [place] [address] Dr. Idania Roldan IG # 0.01 10e3/ul Normal 0.00-0.03 [facility] Comment on above: Performed By: #### P T, PTT #### [facility] [address] [place] [address] Dr. Idania Roldan IG % 0.2 % Normal 0.0-0.5 [facility] Comment on above: Performed By: #### P T, PTT #### [facility] [address] [place] [address] Dr. Idania Roldan LYMPH # 1.4 103/ul Normal 1.2-3.8 [facility] Comment on above: Performed By: #### P T, PTT #### [facility] [address] [place] [address] Dr. Idania Roldan Lymphocytes/100 WBC (Bld) 29.9 % Normal 20.5-60.0 [facility] Comment on above: Performed By: #### P T, PTT #### [facility] [address] [place] [address] Dr. Idania Roldan MANUAL DIFF REQ NO Normal [facility] Comment on above: Performed By: #### P T, PTT #### [facility] [address] [place] [address] Dr. Idania Roldan MCH (RBC) [Entitic mass] 24.4 pg Critically low 26.7-34.0 [facility] Comment on above: Performed By: #### P T, PTT #### [facility] [address] [place] [address] Dr. Idania Roldan MCHC (RBC) [Mass/Vol] 30.2 g/dL Normal 29.9-35.2 [facility] Comment on above: Performed By: #### P T, PTT #### [facility] [address] [place] [address] Dr. dIania Roldan MCV (RBC) [Entitic vol] 80.8 fL Critically low 81.0-99.0 [facility] Comment on above: Performed By: #### P T, PTT #### [facility] [address] [place] [address] Dr. Idania Roldan MONO # 0.2 103/ul Critically low 0.3-0.8 [facility] Comment on above: Performed By: #### P T, PTT #### [facility] [address] [place] [address] Dr. Idania Roldan Monocytes/100 WBC (Bld) 5.2 % Normal 1.7-12.0 [facility] Comment on above: Performed By: #### P T, PTT #### [facility] [address] [place] [address] Dr. Idania Roldan NEUT # 2.9 103/ul Normal 1.4-6.5 [facility] Comment on above: Performed By: #### P T, PTT #### [facility] [address] [place] [address] Dr. Idania Roldan Neutrophils/100 WBC (Bld) 62.3 % Normal 43.0-75.0 [facility] Comment on above: Performed By: #### P T, PTT #### [facility] [address] [place] [address] Dr. Idania Roldan Platelet mean volume (Bld) [Entitic vol] 8.6 fL Critically low 9.5-13.5 [facility] Comment on above: Performed By: #### P T, PTT #### [facility] [address] [place] [address] Dr. Idania Roldan PLT 269 103/ul Normal 150-450 [facility] Comment on above: Performed By: #### P T, PTT #### [facility] [address] [address] [address] Idania Roldan RBC 3.90 106/ul Critically low 4.20-5.40 [facility] Comment on above: Performed By: #### P T, PTT #### [facility] [address] [place] [address] Dr. Idania Roldan WBC 4.6 103/ul Normal 4.0-11.0 [facility] Comment on above: Performed By: #### P T, PTT #### [facility] [address] [place] [address] Dr. Idania Roldan PROF CHEM 8 (BAS METB)on Anion gap [Moles/Vol] 9.0 mmol/L Normal [facility] Comment on above: Performed By: #### B MP, LIPA, YVETTE, LIVER #### [facility] [address] [place] [address] Dr. Idania Roldan Calcium [Mass/Vol] 9.1 mg/dL Normal 8.5-10.1 [facility] Comment on above: Performed By: #### B MP, LIPA, YVETTE, LIVER #### [facility] [address] [place] [address] Dr. Idania Roldan Chloride [Moles/Vol] 104 mmol/L Normal 98-107 [facility] Comment on above: Performed By: #### B MP, LIPA, YVETTE, LIVER #### [facility] [address] [place] [address] Dr. Idania Roldan CO2 [Moles/Vol] 31.5 mmol/L Normal 21.0-32.0 [facility] Comment on above: Performed By: #### B MP, LIPA, YVETTE, LIVER #### [facility] [address] [address] [address] Idania Roldan Creatinine [Mass/Vol] 0.59 mg/dL Normal 0.55-1.02 [facility] Comment on above: Performed By: #### B MP, LIPA, YVETTE, LIVER #### [facility] [address] [place] [address] Dr. Idania Roldan EGFR-AF MALAWIAN >60 Normal >=60 [facility] Comment on above: Performed By: #### B MP, LIPA, YVETTE, LIVER #### [facility] [address] [place] [address] Dr. Idania Roldan EGFR-NON AF MALAWIAN >60 Normal >=60 [facility] Comment on above: Performed By: #### B MP, LIPA, YVETTE, LIVER #### [facility] [address] [place] [address] Dr. Idania Roldan Glucose [Mass/Vol] 90 mg/dL Normal 74-106 [facility] Comment on above: Performed By: #### B MP, LIPA, YVETTE, LIVER #### [facility] [address] [place] [address] Dr. Idania Roldan Potassium [Moles/Vol] 4.5 mmol/L Normal 3.5-5.1 [facility] Comment on above: Performed By: #### B MP, LIPA, YVETTE, LIVER #### [facility] [address] [place] [address] Dr. Idania Roldan Sodium [Moles/Vol] 140 mmol/L Normal 136-145 [facility] Comment on above: Performed By: #### B MP, LIPA, YVETTE, LIVER #### [facility] [address] [place] [address] Dr. Idania Roldan Urea nitrogen [Mass/Vol] 8.0 mg/dL Normal 7.0-18.0 [facility] Comment on above: Performed By: #### B MP, LIPA, YVETTE, LIVER #### [facility] [address] [place] [address] Dr. Idania Roldan Urea nitrogen/Creatinine [Mass ratio] 13.6 mg/mg Normal [facility] Comment on above: Performed By: #### B BOB MOCTEZUMAA, YVETTE, LIVER #### [facility] [address] [place] [address] Dr. Idania Roldan PROTIMEon 08-19-2022 INR Coag (PPP) [Relative time] 0.93 {INR} Normal [facility] Comment on above: Performed By: #### B MP, LIPA, YVETTE, LIVER #### [facility] [address] [place] [address] Dr. Idania Roldan INR GUIDELINES SEE BELOW Normal [facility] Comment on above: Result Comment: TARUN RED INR: 2.0 - 3.0 CONDITIONS NOT LISTED BELOW 2.5 - 3.5 FOR PROSTHETIC HEART VALVE REPLACEMENT 2.5 - 3.5 RECURRENT THROMBOSIS Performed By: #### B RHIANNA LIPA, YVETTE, LIVER #### [facility] [address] [place] [address] Dr. Idania Roldan PT Coag (PPP) [Time] 10.1 s Normal 9.0-11.6 [facility] Comment on above: Performed By: #### B RHIANNA LIPA, YVETTE, LIVER #### [facility] [address] [place] [address] Dr. Idania Roldan PTTon 08-19-2022 aPTT Coag (Bld) [Time] 28.1 s Normal 22.3-36.2 [facility] Comment on above: Performed By: #### B MP LIPA, YVETTE, LIVER #### [facility] [address] [place] [address] Dr. Idania Roldan [facility] SARS-CoV-2 (COVID-19) RNA MAMIE+probe Ql (Unsp spec) Not detected Normal NOT DETECTED [facility] Comment on above: Result Comment: This test is not yet approved or cleared by the [place] FDA. When there are no FDA-approved or cleared tests available, and other criteria are met, FDA can make tests available under an emergency access mechanism called an Emergency Use Authorization (EUA). The EUA for this test is supported by the [place] of Health and Human Service's (HHS's) declaration [...] Performed By: #### P T, PTT #### [facility] [address] [place] [address] Dr. Idania Roldan CBC AUTO DIFFon 07-10-2022 BASO # 0.0 103/ul Normal 0.0-0.1 [facility] Comment on above: Performed By: #### P T, PTT #### [facility] [address] [place] [address] Dr. Idania Roldan Basophils/100 WBC (Bld) 0.2 % Normal 0.2-2.0 [facility] Comment on above: Performed By: #### P T, PTT #### [facility] [address] [place] [address] Dr. Idania Roldan EO # 0.1 103/ul Normal 0.0-0.7 [facility] Comment on above: Performed By: #### P T, PTT #### [facility] [address] [place] [address] Dr. Idania Roldan Eosinophils/100 WBC (Bld) 1.3 % Normal 0.9-7.0 [facility] Comment on above: Performed By: #### P T, PTT #### [facility] [address] [place] [address] Dr. Idania Roldan Erythrocyte distribution width (RBC) [Ratio] 16.4 % Critically high 11.0-15.0 [facility] Comment on above: Performed By: #### P T, PTT #### [facility] [address] [place] [address] Dr. Idania Roldan Hematocrit (Bld) [Volume fraction] 33.2 % Critically low 36.0-48.0 [facility] Comment on above: Performed By: #### P T, PTT #### [facility] [address] [place] [address] Dr. Idania Roldan Hemoglobin (Bld) [Mass/Vol] 10.3 g/dL Critically low 12.0-16.0 [facility] Comment on above: Performed By: #### P T, PTT #### [facility] [address] [place] [address] Dr. Idania Roldan IG # 0.01 10e3/ul Normal 0.00-0.03 [facility] Comment on above: Performed By: #### P T, PTT #### [facility] [address] [place] [address] Dr. Idania Roldan IG % 0.2 % Normal 0.0-0.5 [facility] Comment on above: Performed By: #### P T, PTT #### [facility] [address] [place] [address] Dr. Idanai Roldan LYMPH # 1.8 103/ul Normal 1.2-3.8 [facility] Comment on above: Performed By: #### P T, PTT #### [facility] [address] [place] [address] Dr. Idania Roldan Lymphocytes/100 WBC (Bld) 38.8 % Normal 20.5-60.0 [facility] Comment on above: Performed By: #### P T, PTT #### [facility] [address] [place] [address] Dr. Idania Roldan MANUAL DIFF REQ NO Normal [facility] Comment on above: Performed By: #### P T, PTT #### [facility] [address] [place] [address] Dr. Idania Roldan MCH (RBC) [Entitic mass] 25.9 pg Critically low 26.7-34.0 [facility] Comment on above: Performed By: #### P T, PTT #### [facility] [address] [place] [address] Dr. Idania Roldan MCHC (RBC) [Mass/Vol] 31.0 g/dL Normal 29.9-35.2 [facility] Comment on above: Performed By: #### P T, PTT #### [facility] [address] [place] [address] Dr. Idania Roldan MCV (RBC) [Entitic vol] 83.4 fL Normal 81.0-99.0 [facility] Comment on above: Performed By: #### P T, PTT #### [facility] [address] [place] [address] Dr. Idania Roldan MONO # 0.3 103/ul Normal 0.3-0.8 [facility] Comment on above: Performed By: #### P T, PTT #### [facility] [address] [place] [address] Dr. Idania Roldan Monocytes/100 WBC (Bld) 6.1 % Normal 1.7-12.0 [facility] Comment on above: Performed By: #### P T, PTT #### [facility] [address] [place] [address] Dr. Idania Roldan NEUT # 2.5 103/ul Normal 1.4-6.5 [facility] Comment on above: Performed By: #### P T, PTT #### [facility] [address] [place] [address] Dr. Idania Roldan Neutrophils/100 WBC (Bld) 53.4 % Normal 43.0-75.0 [facility] Comment on above: Performed By: #### P T, PTT #### [facility] [address] [place] [address] Dr. Idania Roldan Platelet mean volume (Bld) [Entitic vol] 10.1 fL Normal 9.5-13.5 [facility] Comment on above: Performed By: #### P T, PTT #### [facility] [address] [place] [address] Dr. Idania Roldan PLT 239 103/ul Normal 150-450 [facility] Comment on above: Performed By: #### P T, PTT #### [facility] [address] [address] [address] Idania Roldan RBC 3.98 106/ul Critically low 4.20-5.40 [facility] Comment on above: Performed By: #### P T, PTT #### [facility] [address] [address] [address] Idania Roldan WBC 4.6 103/ul Normal 4.0-11.0 [facility] Comment on above: Performed By: #### P T, PTT #### [facility] [address] [address] [address] Idania Roldan PROF CHEM 8 (BAS METB)on Anion gap [Moles/Vol] 8.4 mmol/L Normal [facility] Comment on above: Performed By: #### B MP #### [facility] [address] [place] [address] Dr. Idania Roldan Calcium [Mass/Vol] 9.3 mg/dL Normal 8.5-10.1 [facility] Comment on above: Performed By: #### B MP #### [facility] [address] [place] [address] Dr. Idania Roldan Chloride [Moles/Vol] 103 mmol/L Normal 98-107 [facility] Comment on above: Performed By: #### B MP #### [facility] [address] [place] [address] Dr. Idania Roldan CO2 [Moles/Vol] 32.9 mmol/L Critically high 21.0-32.0 [facility] Comment on above: Performed By: #### B MP #### [facility] [address] [place] [address] Dr. Idania Roldan Creatinine [Mass/Vol] 0.70 mg/dL Normal 0.55-1.02 [facility] Comment on above: Performed By: #### B MP #### [facility] [address] [place] [address] Dr. Idania Roldan EGFR-AF MALAWIAN >60 Normal >=60 [facility] Comment on above: Performed By: #### B MP #### [facility] [address] [address] [address] Idania Roldan EGFR-NON AF MALAWIAN >60 Normal >=60 [facility] Comment on above: Performed By: #### B MP #### [facility] [address] [address] [address] Idania Roldan Glucose [Mass/Vol] 73 mg/dL Critically low 74-106 [facility] Comment on above: Performed By: #### B MP #### [facility] [address] [address] [address] Idania Roldan Potassium [Moles/Vol] 4.3 mmol/L Normal 3.5-5.1 [facility] Comment on above: Performed By: #### B MP #### [facility] [address] [address] [address] Idania Roldan Sodium [Moles/Vol] 140 mmol/L Normal 136-145 [facility] Comment on above: Performed By: #### B MP #### [facility] [address] [address] [address] Idania Roldan Urea nitrogen [Mass/Vol] 16.0 mg/dL Normal 7.0-18.0 [facility] Comment on above: Performed By: #### B MP #### [facility] [address] [address] [address] Idania Roldan Urea nitrogen/Creatinine [Mass ratio] 22.9 mg/mg Normal [facility] Comment on above: Performed By: #### B MP #### [facility] [address] [address] [address] Idania Roldan PROTIMEon 07-10-2022 INR Coag (PPP) [Relative time] 1.00 {INR} Normal [facility] Comment on above: Performed By: #### P T, PTT #### [facility] [address] [address] [address] Idania Roldan INR GUIDELINES SEE BELOW Normal [facility] Comment on above: Result Comment: TARUN RED INR: 2.0 - 3.0 CONDITIONS NOT LISTED BELOW 2.5 - 3.5 FOR PROSTHETIC HEART VALVE REPLACEMENT 2.5 - 3.5 RECURRENT THROMBOSIS Performed By: #### P T, PTT #### [facility] [address] [address] [address] Idania Roldan PT Coag (PPP) [Time] 10.8 s Normal 9.0-11.6 [facility] Comment on above: Performed By: #### P T, PTT #### [facility] [id number] Idania Roldan PTTon 07-10-2022 aPTT Coag (Bld) [Time] 29.3 s Normal 22.3-36.2 [facility] Comment on above: Performed By: #### P T, PTT #### [facility] [address] [address] [address] Idania Rlodan Operative Reporton Operative Report MR#: [id number] I [facility] Pt. Name: Elvi Moore Room #: [id number] Discharge 06/01/2022 Date: Birthdate: 1980 OPERATIVE REPORT DATE OF SURGERY: 06/01/2022 SURGEON: Kevin Lane M.D. GROUNDS FOREMAN: Duy Cavazos ANESTHESIA: General anesthesia. ESTIMATED BLOOD [...] arthrotomy was closed with soft #2 interrupted [id number] suture. The remainder of the incision closed in layered fashion. Sterile dressing applied. At the conclusion of the case, all sponge and needle counts correct. I was present for the critical portions of this case. Electronically Signed by: Kevin Lane M.D. 06/09/2022 07:[address] M.D. Date Dict: 06/03/2022/07:15 A/Kevin Lane M.D. Date Trans: 06/03/2022 08:09 A/taylor [id number] cc: Arleth Acharya M.D. [address], [facility] [id number] Normal [facility] *ANAEROBIC CULTUREon 022 *ANAEROBIC CULTURE Clinical Report: (D) Specimen/Source: FLUID/INTRAOP SPEC Collected: 06/01/2022 14:08 Status: Final Last Updated: 06/06/2022 06:35 (1) 1. LEFT KNEE JOINT FLUID CULT RES (Final) No Anaerobes Isolated 5 Days Normal [facility] Comment on above: Order Comment: 1. LE FT KNEE JOINT FLUID Performed By: #### 3 0312 ####[facility] [address] *ANAEROBIC CULTURE Clinical Report: (D) Specimen/Source: TISSUE/INTRAOP SPEC Collected: 06/01/2022 14:08 Status: Final Last Updated: 06/06/2022 06:35 (1) 2. LEFT KNEE MEDIAL SYNOVIUM CULT RES (Final) No Anaerobes Isolated 5 Days Normal [facility] Comment on above: Order Comment: 2. LE FT KNEE MEDIAL SYNOVIUM Performed By: #### 6 1405 #### [facility] [address] *ANAEROBIC CULTURE Clinical Report: (D) Specimen/Source: TISSUE/INTRAOP SPEC Collected: 06/01/2022 14:08 Status: Final Last Updated: 06/06/2022 06:35 (1) 3. LEFT KNEE LATERAL SYNOVIUM CULT RES (Final) No Anaerobes Isolated 5 Days Normal [facility] Comment on above: Order Comment: 3. LE FT KNEE LATERAL SYNOVIUM Performed By: #### 6 1405 #### [facility] [address] *BODY FLUID CULTUREon 2021 *BODY FLUID CULTURE Clinical Report: (D) Specimen/Source: FLUID/INTRAOP SPEC Collected: 06/01/2022 14:08 Status: Final Last Updated: 06/06/2022 06:39 (1) 1. LEFT KNEE JOINT FLUID GRAM (Final) Quantity Not Sufficient CULT RES (Final) No Growth Day 5 Normal [facility] Comment on above: Order Comment: 1. LE FT KNEE JOINT FLUID Performed By: #### 3 0318 ####[facility] [address] *TISSUE CULTUREon 06-01-2022 *TISSUE CULTURE Clinical Report: (D) Specimen/Source: TISSUE/INTRAOP SPEC Collected: 06/01/2022 14:08 Status: Final Last Updated: 06/06/2022 06:40 (1) 2. LEFT KNEE MEDIAL SYNOVIUM GRAM (Final) Many Polys No Bacteria Seen CULT RES (Final) No Growth Day 5 Normal [facility] Comment on above: Order Comment: 2. LE FT KNEE MEDIAL SYNOVIUM Performed By: #### 3 0338 ####[facility] [address] *TISSUE CULTURE Clinical Report: (D) Specimen/Source: TISSUE/INTRAOP SPEC Collected: 06/01/2022 14:08 Status: Final Last Updated: 06/06/2022 06:39 (1) 3. LEFT KNEE LATERAL SYNOVIUM GRAM (Final) Many Polys No Bacteria Seen CULT RES (Final) No Growth Day 5 Normal [facility] Comment on above: Order Comment: 3. LE FT KNEE LATERAL SYNOVIUM Performed By: #### 3 0338 ####[facility] [place] [address], [facility] POC GLUCOSE LABon 06-01-2022 Glucose [Mass/Vol] 86 mg/dL Normal 70-100 [facility] Comment on above: Performed By: #### 8 5499 #### [facility] [address] [facility] [place] [address], [facility] PORTABLE KNEE LEFT 2 VWSon 0 06-01-2022 PORTABLE KNEE LEFT 2 VWS [facility] Department of Radiology [address] [place] [id number] Patient Name: ELVI MOORE : 1980 Sex: [...] planned Electronically signed: Yvette Andrade. Transcribed by: [id number], User Resident: Electronically Signed by: YVETTE ANDRADE @ 06/02/2022 08:53 AM Normal [facility] Comment on above: Order Comment: Hardw are Evaluation, in PACU *MRSA/MSSA DNA NASALon 05-26 *MRSA/MSSA DNA NASAL Clinical Report: (D) Specimen: NASAL SWAB Collected: 05/26/2022 15:23 Status: Final Last Updated: 05/27/2022 13:43 MSSA DNA (Final) Negative MRSA DNA (Final) Negative Normal [facility] Comment on above: Performed By: #### 3 1595 #### [facility] [address] C REACTIVE PROTEINon 022 CRP [Mass/Vol] 1.3 mg/L Normal 0.0-7.0 [facility] Comment on above: Performed By: #### 6 1405 #### [facility] [address] CBC W/DIFFon 05-26-2022 ABS IMM GRANS 0.0 10*3/uL Normal 0.0-0.2 [facility] Comment on above: Performed By: #### 6 1405 #### [facility] [address] ABS NEUTROPHILS 2.5 10*3/uL Normal 1.6-7.6 [facility] Comment on above: Performed By: #### 6 1405 #### [facility] [address] Basophils (Bld) [#/Vol] 0.0 10*3/uL Normal 0.0-0.2 [facility] Comment on above: Performed By: #### 6 1405 #### [facility] [address] Basophils/100 WBC (Bld) 0.3 % Normal 0.0-1.0 [facility] Comment on above: Performed By: #### 6 1405 #### [facility] [address] Eosinophils (Bld) [#/Vol] 0.1 10*3/uL Normal 0.0-0.5 [facility] Comment on above: Performed By: #### 6 1405 #### [facility] [address] [place] [address], [facility] Eosinophils/100 WBC (Bld) 1.5 % Normal 0.0-6.0 [facility] Comment on above: Performed By: #### 6 1405 #### [facility] [address] Erythrocyte distribution width (RBC) [Ratio] 15.9 % High 11.5-15.0 [facility] Comment on above: Performed By: #### 6 1405 #### [facility] [address] Hematocrit (Bld) [Volume fraction] 35.0 % Low 36.0-45.0 [facility] Comment on above: Performed By: #### 6 1405 #### [facility] [address] Hemoglobin (Bld) [Mass/Vol] 10.6 g/dL Low 12.0-15.0 [facility] Comment on above: Performed By: #### 6 1405 #### [facility] [address] IMMATURE GRANS 0.2 % Normal 0.0-1.0 [facility] Comment on above: Performed By: #### 6 1405 #### [facility] [address] Lymphocytes (Bld) [#/Vol] 2.8 10*3/uL Normal 1.2-4.0 [facility] Comment on above: Performed By: #### 6 1405 #### [facility] [address] Lymphocytes/100 WBC (Bld) 48.0 % High 20.0-45.0 [facility] Comment on above: Performed By: #### 6 1405 #### [facility] [address] MCH (RBC) [Entitic mass] 24.5 pg Low 27.0-33.0 [facility] Comment on above: Performed By: #### 6 1405 #### [facility] [address] MCHC (RBC) [Mass/Vol] 30.3 g/dL Low 32.0-35.0 [facility] Comment on above: Performed By: #### 6 1405 #### [facility] [address] MCV (RBC) [Entitic vol] 81.0 fL Low 82.0-98.0 [facility] Comment on above: Performed By: #### 6 1405 #### [facility] [address] [place] [address], [facility] Monocytes (Bld) [#/Vol] 0.4 10*3/uL Normal 0.1-1.0 [facility] Comment on above: Performed By: #### 6 1405 #### [facility] [address] MONOS 6.8 % Normal 5.0-12.0 [facility] Comment on above: Performed By: #### 6 1405 #### [facility] [address] Neutrophils/100 WBC (Bld) 43.2 % Normal 40.0-72.0 [facility] Comment on above: Performed By: #### 6 1405 #### [facility] [address] [place] [address], [facility] Nucleated RBC/100 WBC (Bld) [Ratio] 0 % Normal 0-0 [facility] Comment on above: Performed By: #### 6 1405 #### [facility] [address] [place] [address], [facility] PLAT CNT 246 10*3/uL Normal 150-400 [facility] Comment on above: Performed By: #### 6 1405 #### [facility] [address] [place] [address], [facility] RBC (Bld) [#/Vol] 4.32 10*6/uL Normal 3.80-5.00 [facility] Comment on above: Performed By: #### 6 1405 #### [facility] [address] [place] [address], [facility] WBC (Bld) [#/Vol] 5.87 10*3/uL Normal 4.00-10.60 [facility] Comment on above: Performed By: #### 6 1405 #### [facility] [address] [place] [address], [facility] HEMOGLOBIN A1Con 05-26-2022 Glucose [Moles/Vol] 100 mmol/L Normal [facility] Comment on above: Performed By: #### 3 1791 #### [facility] [address] [place] [address], [facility] HbA1c (Bld) [Mass fraction] 5.1 % Normal 4.0-6.0 [facility] Comment on above: Performed By: #### 3 1791 #### [facility] [address] [place] [address], [facility] SEDIMENTATION RATEon 022 SED RATE 17 mm/hr Normal 0-20 [facility] Comment on above: Performed By: #### 6 1405 #### [facility] [address] [place] [address], [facility] US KIDNEYS BLADDERon 022 US KIDNEYS BLADDER EXAMINATION: US KIDSonia EYS BLADDER HISTORY: Kidney stone ; left [...] RUSSELL DUFF Date: 2022-05-02 16:18 Normal [facility] CBC AUTO DIFFon 04-29-2022 BASO # 0.0 103/ul Normal 0.0-0.1 [facility] Comment on above: Performed By: #### B MP, LIPA, YVETTE, LIVER #### [facility] [address] [address] [address] Idania Roldan Basophils/100 WBC (Bld) 0.3 % Normal 0.2-2.0 [facility] Comment on above: Performed By: #### B MP, LIPA, YVETTE, LIVER #### [facility] [address] [address] [address] Idania Roldan EO # 0.1 103/ul Normal 0.0-0.7 [facility] Comment on above: Performed By: #### B MP, LIPA, YVETTE, LIVER #### [facility] [address] [place] [address] Dr. Idania Roldan Eosinophils/100 WBC (Bld) 0.9 % Normal 0.9-7.0 [facility] Comment on above: Performed By: #### B MP, LIPA, YVETTE, LIVER #### [facility] [address] [place] [address] Dr. Idania Roldan Erythrocyte distribution width (RBC) [Ratio] 15.4 % Critically high 11.0-15.0 [facility] Comment on above: Performed By: #### B MP, LIPA, YVETTE, LIVER #### [facility] [address] [place] [address] Dr. Idania Roldan Hematocrit (Bld) [Volume fraction] 36.0 % Normal 36.0-48.0 [facility] Comment on above: Performed By: #### B MP, LIPA, YVETTE, LIVER #### [facility] [address] [place] [address] Dr. Idania Roldan Hemoglobin (Bld) [Mass/Vol] 11.2 g/dL Critically low 12.0-16.0 [facility] Comment on above: Performed By: #### B MP, LIPA, YVETTE, LIVER #### [facility] [address] [place] [address] Dr. Idania Roldan IG # 0.02 10e3/ul Normal 0.00-0.03 [facility] Comment on above: Performed By: #### B MP, LIPA, YVETTE, LIVER #### [facility] [address] [place] [address] Dr. Idania Roldan IG % 0.3 % Normal 0.0-0.5 [facility] Comment on above: Performed By: #### B MP, LIPA, YVETTE, LIVER #### [facility] [address] [place] [address] Dr. Idania Roldan LYMPH # 2.5 103/ul Normal 1.2-3.8 [facility] Comment on above: Performed By: #### B MP, LIPA, YVETTE, LIVER #### [facility] [address] [place] [address] Dr. Idania Roldan Lymphocytes/100 WBC (Bld) 36.2 % Normal 20.5-60.0 [facility] Comment on above: Performed By: #### B MP, LIPA, YVETTE, LIVER #### [facility] [address] [place] [address] Dr. Idania Roldan MANUAL DIFF REQ NO Normal [facility] Comment on above: Performed By: #### B MP, LIPA, YVETTE, LIVER #### [facility] [address] [place] [address] Dr. Idania Roldan MCH (RBC) [Entitic mass] 24.9 pg Critically low 26.7-34.0 [facility] Comment on above: Performed By: #### B MP, LIPA, YVETTE, LIVER #### [facility] [address] [place] [address] Dr. Idania Roldan MCHC (RBC) [Mass/Vol] 31.1 g/dL Normal 29.9-35.2 [facility] Comment on above: Performed By: #### B MP, LIPA, YVETTE, LIVER #### [facility] [address] [place] [address] Dr. Idania Roldan MCV (RBC) [Entitic vol] 80.2 fL Critically low 81.0-99.0 [facility] Comment on above: Performed By: #### B MP, LIPA, YVETTE, LIVER #### [facility] [address] [place] [address] Dr. Idania Roldan MONO # 0.5 103/ul Normal 0.3-0.8 [facility] Comment on above: Performed By: #### B MP, LIPA, YVETTE, LIVER #### [facility] [address] [place] [address] Dr. Idania Roldan Monocytes/100 WBC (Bld) 6.7 % Normal 1.7-12.0 [facility] Comment on above: Performed By: #### B MP, LIPA, YVETTE, LIVER #### [facility] [address] [place] [address] Dr. Idania Roldan NEUT # 3.8 103/ul Normal 1.4-6.5 [facility] Comment on above: Performed By: #### B MP, LIPA, YVETTE, LIVER #### [facility] [address] [place] [address] Dr. Idania Roldan Neutrophils/100 WBC (Bld) 55.6 % Normal 43.0-75.0 [facility] Comment on above: Performed By: #### B MP, LIPA, YVETTE, LIVER #### [facility] [address] [place] [address] Dr. Idania Roldan Platelet mean volume (Bld) [Entitic vol] 9.9 fL Normal 9.5-13.5 [facility] Comment on above: Performed By: #### B MP, LIPA, YVETTE, LIVER #### [facility] [address] [place] [address] Dr. Idania Roldan PLT 265 103/ul Normal 150-450 [facility] Comment on above: Performed By: #### B MP, LIPA, YVETTE, LIVER #### [facility] [address] [place] [address] Dr. Idania Roldan RBC 4.49 106/ul Normal 4.20-5.40 [facility] Comment on above: Performed By: #### B MP, LIPA, YVETTE, LIVER #### [facility] [address] [place] [address] Dr. Idania Roldan WBC 6.8 103/ul Normal 4.0-11.0 [facility] Comment on above: Performed By: #### B MP, LIPA, YVETTE, LIVER #### [facility] [address] [place] [address] Dr. Idania Roldan ER URINE PROFILEon 2 Bilirubin Ql (U) Negative Normal NEGATIVE [facility] Comment on above: Performed By: #### P T, PTT #### [facility] [address] [place] [address] Dr. Idania Roldan Clarity (U) CLEAR Normal CLEAR [facility] Comment on above: Performed By: #### P T, PTT #### [facility] [address] [place] [address] Dr. Idania Roldan Color (U) LT. YELLOW Normal YELLOW [facility] Comment on above: Performed By: #### P T, PTT #### [facility] [address] [place] [address] Dr. Idania MENDOSA A micrscopic examina tion will be performed if indicated. Normal [facility] Comment on above: Performed By: #### P T, PTT #### [facility] [address] [place] [address] Dr. Idania Roldan Glucose Ql (U) Negative Normal NEGATIVE [facility] Comment on above: Performed By: #### P T, PTT #### [facility] [address] [place] [address] Dr. Idania Roldan Hemoglobin Ql (U) LARGE Abnormal NEGATIVE [facility] Comment on above: Performed By: #### P T, PTT #### [facility] [address] [place] [address] Dr. Idania Roldan Ketones Ql (U) Negative Normal NEGATIVE [facility] Comment on above: Performed By: #### P T, PTT #### [facility] [address] [place] [address] Dr. Idania Roldan LEUKOCYTES TRACE Abnormal NEGATIVE [facility] Comment on above: Performed By: #### P T, PTT #### [facility] [address] [place] [address] Dr. Idania Roldan Nitrite Ql (U) Negative Normal NEGATIVE [facility] Comment on above: Performed By: #### P T, PTT #### [facility] [address] [place] [address] Dr. Idania Roldan pH (U) 6.0 [pH] Normal 5-9 [facility] Comment on above: Performed By: #### P T, PTT #### [facility] [address] [place] [address] Dr. Idania Roldan SPEC GRAVITY 1.010 Normal 1.005-<=1.02 5 [facility] Comment on above: Performed By: #### P T, PTT #### [facility] [address] [place] [address] Dr. Idania Roldan UA PROTEIN Negative Normal NEGATIVE/ TRACE [facility] Comment on above: Performed By: #### P T, PTT #### [facility] [address] [place] [address] Dr. Idania Roldan UR MICRO IND INDICATED Normal [facility] Comment on above: Performed By: #### P T, PTT #### [facility] [address] [place] [address] Dr. Idania Roldan Urobilinogen Qn (U) 0.2 {Bryan'U}/dL Normal 0.2 - 1. 0 [facility] Comment on above: Performed By: #### P T, PTT #### [facility] [address] [place] [address] Dr. Idania Roldan PROF CHEM 8 (BAS METB)on Anion gap [Moles/Vol] 10.9 mmol/L Normal [facility] Comment on above: Performed By: #### P T, PTT #### [facility] [address] [place] [address] Dr. Idania Roldan Calcium [Mass/Vol] 8.9 mg/dL Normal 8.5-10.1 [facility] Comment on above: Performed By: #### P T, PTT #### [facility] [address] [place] [address] Dr. Idania Roldan Chloride [Moles/Vol] 104 mmol/L Normal 98-107 [facility] Comment on above: Performed By: #### P T, PTT #### [facility] [address] [place] [address] Dr. Idania Roldan CO2 [Moles/Vol] 28.9 mmol/L Normal 21.0-32.0 [facility] Comment on above: Performed By: #### P T, PTT #### [facility] [address] [place] [address] Dr. Idania Roldan Creatinine [Mass/Vol] 0.71 mg/dL Normal 0.55-1.02 [facility] Comment on above: Performed By: #### P T, PTT #### [facility] [address] [place] [address] Dr. Idania Roldan EGFR-AF MALAWIAN >60 Normal >=60 [facility] Comment on above: Performed By: #### P T, PTT #### [facility] [address] [place] [address] Dr. Idania Roldan EGFR-NON AF MALAWIAN >60 Normal >=60 [facility] Comment on above: Performed By: #### P T, PTT #### [facility] [address] [place] [address] Dr. Idania Roldan Glucose [Mass/Vol] 88 mg/dL Normal 74-106 [facility] Comment on above: Performed By: #### P T, PTT #### [facility] [address] [place] [address] Dr. Idania Roldan Potassium [Moles/Vol] 3.8 mmol/L Normal 3.5-5.1 [facility] Comment on above: Performed By: #### P T, PTT #### [facility] [address] [place] [address] Dr. Idania Roldan Sodium [Moles/Vol] 140 mmol/L Normal 136-145 [facility] Comment on above: Performed By: #### P T, PTT #### [facility] [address] [place] [address] Dr. Idania Roldan Urea nitrogen [Mass/Vol] 13.0 mg/dL Normal 7.0-18.0 [facility] Comment on above: Performed By: #### P T, PTT #### [facility] [address] [place] [address] Dr. Idania Roldan Urea nitrogen/Creatinine [Mass ratio] 18.3 mg/mg Normal [facility] Comment on above: Performed By: #### P T, PTT #### [facility] [address] [place] [address] Dr. Idania Roldan URINE MICROSCOPIC ONLYon BACTERIA NONE SEEN Normal NONE SEEN [facility] Comment on above: Performed By: #### P T, PTT #### [facility] [address] [place] [address] Dr. Idania Roldan Bacteria identified Cx Nom (U) NOT INDICATED Normal [facility] Comment on above: Performed By: #### P T, PTT #### [facility] [address] [place] [address] Dr. Idania Roldan CAST NONE SEEN Normal NONE SEEN [facility] Comment on above: Performed By: #### P T, PTT #### [facility] [address] [place] [address] Dr. Idania Roldan Crystals LM Nom (Urine sed) NONE SEEN Normal NONE SEEN [facility] Comment on above: Performed By: #### P T, PTT #### [facility] [address] [place] [address] Dr. Idania Roldan Epithelial cells LM Ql (Urine sed) FEW Abnormal NONE SEEN /RARE [facility] Comment on above: Performed By: #### P T, PTT #### [facility] [address] [place] [address] Dr. Idania Roldan MUCOUS NONE SEEN Normal NONE SEEN [facility] Comment on above: Performed By: #### P T, PTT #### [facility] [address] [place] [address] Dr. Idania Roldan RBC 50-75 Abnormal 0-2 [facility] Comment on above: Performed By: #### P T, PTT #### [facility] [address] [place] [address] Dr. Idania Roldan WBC 0-2 Abnormal NONE SEEN [facility] [facility] Comment on above: Performed By: #### P T, PTT #### [facility] [address] [place] [address] Dr. Idania Roldan XR ABD FLAT UP_PA [...] RUSSELL DUFF Date: 2022-04-29 13:37 Normal [facility] US KIDNEYS BLADDERon 022 US KIDNEYS BLADDER EXAMINATION: US [facility] BLADDER HISTORY: Kidney stone , left flank [...] RUSSELL DUFF Date: 2022-04-16 18:24 Normal [facility] CT LOWER EXTREMITY WO CONTRA ST LEFTon 04-07-2022 CT LOWER EXTREMITY WO CONTRAST LEFT [facility] Department of Radiology [address] [place] [address] Patient Name: ELVI MOORE : [...] arthroplasty. Electronically signed: Elvis Perez. Transcribed by: [email or web address], User Resident: Electronically Signed by: ELVIS PEREZ @ 04/12/2022 09:46 AM Normal [facility] Comment on above: Order Comment: , lef t knee C REACTIVE PROTEINon CRP [Mass/Vol] 2.2 mg/L Normal 0.0-7.0 [facility] Comment on above: Performed By: #### 3 1791 #### [id number] [place] [address] SEDIMENTATION RATEon SED RATE 30 mm/hr High 0-20 [facility] Comment on above: Performed By: #### 5 6506 #### [facility] [address] [place], [place] [id number] [place] [address] KNEE LEFT 1 OR 2 VWSon 02-12 KNEE LEFT 1 OR 2 VWS [facility] Department of Radiology [address] [place] [phone] Patient Name: ELVI MOORE : 1980 Sex: F Age: Race: White Pt. Location: Patient Status: O Ordered Date: 02/12/2022 7:30:00 AM Completed Date: 02/12/2022 10:29 AM Requesting Provider: KEVIN LANE Attending Provider: KEVIN LAEN Report Copy To: Signs & Symptoms: LT [...] report. Electronically signed: Sathya Christianson. Transcribed by: [email or web address], User Resident: Electronically Signed by: SATHYA CHRISTIANSON @ 02/13/2022 10:48 PM Normal [facility] Comment on above: Order Comment: LT KN EE REANNA Operative Reporton Operative Report MR#: [id number] S [facility] Pt. Name: Elvi Moore Room #: 0C Discharge Date: Birthdate: 1980 OPERATIVE REPORT DATE OF SURGERY: 02/12/2022 SURGEON: Kevin Lane M.D. GROUNDS FOREMAN: None. PREOPERATIVE DIAGNOSIS: Left total knee arthroplasty [...] Lane M.D. Date Trans: 02/12/2022 09:35 A/taylor [id number] cc: Arleth Acharya M.D. [address] [place] [address] Normal [facility] POC GLUCOSE LABon 02-12-2022 Glucose [Mass/Vol] 96 mg/dL Normal 70-100 [facility] Comment on above: Performed By: #### 8 5499 ####[facility] [facility], [place] [id number] [place] [address] C REACTIVE PROTEINon 022 CRP [Mass/Vol] 1.7 mg/L Normal 0.0-7.0 [facility] Comment on above: Performed By: #### 6 1405 #### [facility] [address] [facility] [place] [address], [facility] SEDIMENTATION RATEon 022 SED RATE 18 mm/hr Normal 0-20 [facility] Comment on above: Performed By: #### 6 1405 #### [facility] [address] [facility] [place], [place] [id number] [place] [address] KNEE LEFT 3 VWSon 12-26-2021 KNEE LEFT 3 VWS [facility] Department of Radiology [address] [place] [phone] Patient Name: ELVI MOORE : 1980 Sex: F Age: Race: White Pt. Location: Patient Status: Ordered Date: 12/26/2021 1:45:00 PM Completed Date: 12/26/2021 01:50 PM Requesting Provider: JORDEN BRODY Attending Provider: Report Copy To: Signs & Symptoms: Z47.1 Aftercare following joint replacement surgery I10 History: [place] Comments: , , , Ordering Provider - JORDEN BRODY CNP , Exam: KNEE LEFT 3 [facility] KNEE LEFT 3 [facility] 12/26/2021 1:50 PM CLINICAL INDICATIONS: Z47.1 [...] report. Electronically signed: Yvette Desai. Transcribed by: [email or web address], User Resident: CHRISTELLE ABDI Electronically Signed by: YVETTE DESAI @ 12/26/2021 04:27 PM I personally read this/these film(s) with this resident Normal [facility] Comment on above: Order Comment: , , = ========= , Ordering Provider - JORDEN BRODY CNP , KNEE LEFT 3 [facility] 12-09-2021 KNEE LEFT 3 [facility] Department of Radiology [address] [place] [phone] Patient Name: ELVI MOORE : 1980 [...] changes. Electronically signed: Ezio Roberts. Transcribed by: [email or web address], User Resident: Electronically Signed by: EZIO ROBERTS @ 12/10/2021 08:39 AM Normal [facility] Operative Reporton Operative Report MR#: [id number] S [facility] Pt. Name: Elvi Moore Room #: 0C Discharge Date: Birthdate: 1980 OPERATIVE REPORT DATE OF SURGERY: 10/30/2021 SURGEON: Kevin Lane M.D. GROUNDS FOREMAN: 1Lui Galeano MD. 2. LAVON Quinones. ANESTHESIA: General anesthesia. ESTIMATED [...] arthrotomy was closed itself with #2 interrupted avvszm-[id number] suture. The remainder of the incision was closed in a layered fashion. Sterile dressing was applied. At the conclusion of the case, all sponge and needle counts were correct. I was present for the critical portions of this case. Electronically Signed by: Kevin Lane M.D. 10/30/2021 07:[address] M.D. Date Dict: 10/30/2021/11:00 A/Kevin Lane M.D. Date Trans: 10/30/2021 12:34 P/mmo [id number] cc: Arleth Acharya M.D. [address], [facility] [address] Nasir Thacker, DO [address] [facility] [address] [facility] [address] Normal [facility] POC GLUCOSE LABon 10-30-2021 Glucose [Mass/Vol] 88 mg/dL Normal 70-100 [facility] Comment on above: Performed By: #### 8 5499 ####[facility] [place] [address].[place] [address], [facility] PORTABLE KNEE LEFT 2 VWSon 0 10-30-2021 PORTABLE KNEE LEFT 2 VWS [facility] Department of Radiology [address] [place] [phone] Patient Name: ELVI MOORE : 1980 Sex: F Age: Race: White Pt. Location: OUTP Patient Status: O Ordered Date: 10/30/2021 8:45:00 AM Completed Date: 10/30/2021 10:58 AM Requesting Provider: WHITLEY GALEANO Attending Provider: KEVIN LANE Report Copy To: [...] complication Electronically signed: Yvette Andrade. Transcribed by: [email or web address], User Resident: Electronically Signed by: YVETTE ANDRADE @ 10/30/2021 11:20 AM Normal [facility] Comment on above: Order Comment: Hardw are Evaluation, Postop PACU films for L knee s/p TKA. AP and lateral please *MRSA/MSSA DNA NASALon 10-07 *MRSA/MSSA DNA NASAL Clinical Report: (D) Specimen: NASAL SWAB Collected: 10/07/2021 10:51 Status: Final Last Updated: 10/07/2021 15:44 MSSA DNA (Final) Negative MRSA DNA (Final) Negative Normal [facility] Comment on above: Performed By: #### 3 1595 ####[facility] [place] [address], [facility] APTTon 10-07-2021 aPTT Coag (Bld) [Time] 32.2 s Normal 25.0-35.0 [facility] Comment on above: [...] PURPOSE. Performed By: #### 3 1791 #### [facility] [address] [facility] [place] [address], [facility] BASIC METABOLIC PANELon 12-2 Calcium [Mass/Vol] 9.2 mg/dL Normal 8.6-10.3 [facility] Comment on above: Performed By: #### 3 1791 #### [facility] [address] [place] [address], [place] Chloride [Moles/Vol] 106 mmol/L Normal 98-107 [facility] Comment on above: Performed By: #### 3 1791 #### [facility] [address] [place] [address], [place] CO2 [Moles/Vol] 28 mmol/L Normal 21-31 [facility] Comment on above: Performed By: #### 3 1791 #### [facility] [address] [place] [address], [place] Creatinine [Mass/Vol] 0.77 mg/dL Normal 0.60-1.20 [facility] Comment on above: Performed By: #### 3 1791 #### [facility] [address] [place] [address], [place] GFR/1.73 sq M.predicted among blacks MDRD (S/P/Bld) [Vol rate/Area] mL/min/{1.73_m2} Normal >60 [facility] Comment on above: Performed By: #### 3 179 #### [facility] [address] [place] [address], [place] GFR/1.73 sq M.predicted among non-blacks MDRD (S/P/Bld) [Vol rate/Area] mL/min/{1.73_m2} Normal >60 [facility] Comment on above: Performed By: #### 3 1790 #### [facility] [address] [place] [address], [place] Glucose [Mass/Vol] 84 mg/dL Normal 70-100 [facility] Comment on above: Performed By: #### 3 1790 #### [facility] [address] [place] [address], [place] Potassium [Moles/Vol] 4.4 mmol/L Normal 3.5-5.1 [facility] Comment on above: Performed By: #### 3 1790 #### [facility] [address] [place] [address], [place] Sodium [Moles/Vol] 142 mmol/L Normal 136-145 [facility] Comment on above: Performed By: #### 3 1790 #### [facility] [address] [place] [address], [place] Urea nitrogen [Mass/Vol] 12 mg/dL Normal 7-25 [facility] Comment on above: Performed By: #### 3 1790 #### [facility] [address] [place] [address], [place] CBC W/DIFFon 10-07-2021 ABS IMM GRANS 0.0 10*3/uL Normal 0.0-0.2 [facility] Comment on above: Performed By: #### 6 1405 #### [facility] [address] [facility] [place] [place] [address], [facility] ABS NEUTROPHILS 4.7 10*3/uL Normal 1.6-7.6 [facility] Comment on above: Performed By: #### 6 1405 #### [facility] [address] [place] [address], [facility] Basophils (Bld) [#/Vol] 0.0 10*3/uL Normal 0.0-0.2 [facility] Comment on above: Performed By: #### 6 1405 #### [facility] [address] [facility] [place] [address], [facility] Basophils/100 WBC (Bld) 0.3 % Normal 0.0-1.0 [facility] Comment on above: Performed By: #### 6 1405 #### [facility] [address] [facility] [place] [address], [facility] Eosinophils (Bld) [#/Vol] 0.2 10*3/uL Normal 0.0-0.5 [facility] Comment on above: Performed By: #### 6 1405 #### [facility] [address] [place] [address], [facility] Eosinophils/100 WBC (Bld) 1.9 % Normal 0.0-6.0 [facility] Comment on above: Performed By: #### 6 1405 #### [facility] [address] [facility] [place] [address], [facility] Erythrocyte distribution width (RBC) [Ratio] 14.0 % Normal 11.5-15.0 [facility] Comment on above: Performed By: #### 6 1405 #### [facility] [address] [place] [address], [facility] Hematocrit (Bld) [Volume fraction] 37.1 % Normal 36.0-45.0 [facility] Comment on above: Performed By: #### 6 1405 #### [facility] [address] [facility] [place] [address], [facility] Hemoglobin (Bld) [Mass/Vol] 11.3 g/dL Low 12.0-15.0 [facility] Comment on above: Performed By: #### 6 1405 #### [facility] [address] [place] [address], [facility] IMMATURE GRANS 0.1 % Normal 0.0-1.0 [facility] Comment on above: Performed By: #### 6 1405 #### [facility] [address] [place] [address], [facility] Lymphocytes (Bld) [#/Vol] 2.5 10*3/uL Normal 1.2-4.0 [facility] Comment on above: Performed By: #### 6 1405 #### [facility] [address] Lymphocytes/100 WBC (Bld) 31.6 % Normal 20.0-45.0 [facility] Comment on above: Performed By: #### 6 1405 #### [facility] [address] [place] [address], [facility] MCH (RBC) [Entitic mass] 25.5 pg Low 27.0-33.0 [facility] Comment on above: Performed By: #### 6 1405 #### [facility] [address] [place] [address], [facility] MCHC (RBC) [Mass/Vol] 30.5 g/dL Low 32.0-35.0 [facility] Comment on above: Performed By: #### 6 1405 #### [facility] [address] [place] [address], [facility] MCV (RBC) [Entitic vol] 83.7 fL Normal 82.0-98.0 [facility] Comment on above: Performed By: #### 6 1405 #### [facility] [address] [facility] [place] [address], [facility] Monocytes (Bld) [#/Vol] 0.5 10*3/uL Normal 0.1-1.0 [facility] Comment on above: Performed By: #### 6 1405 #### [facility] [address] [facility] [place] [address], [facility] MONOS 6.0 % Normal 5.0-12.0 [facility] Comment on above: Performed By: #### 6 1405 #### [facility] [address] [place] [address], [facility] Neutrophils/100 WBC (Bld) 60.1 % Normal 40.0-72.0 [facility] Comment on above: Performed By: #### 6 1405 #### [facility] [address] [facility] [place] [address], [facility] Nucleated RBC/100 WBC (Bld) [Ratio] 0 % Normal 0-0 [facility] Comment on above: Performed By: #### 6 1405 #### [facility] [address] [facility] [place] [address], [facility] PLAT CNT 233 10*3/uL Normal 150-400 [facility] Comment on above: Performed By: #### 6 1405 #### [facility] [address] [facility] [place] [address], [facility] RBC (Bld) [#/Vol] 4.43 10*6/uL Normal 3.80-5.00 [facility] Comment on above: Performed By: #### 6 1405 #### [facility] [address] [facility] [place] [address], [facility] WBC (Bld) [#/Vol] 7.85 10*3/uL Normal 4.00-10.60 [facility] Comment on above: Performed By: #### 6 1405 #### [facility] [address] PROTHROMBIN TIMEon INR Coag (PPP) [Relative time] 0.94 {INR} Normal 0.91-1.16 [facility] Comment on above: [...] 1995;108:231S-246S. Performed By: #### 3 1791 #### [facility] [address] [place] [address], [facility] PT Coag (PPP) [Time] 12.6 s Normal 12.3-14.8 [facility] Comment on above: Result Comment: ALL RESULTS MUST BE INTERPRETED WITH RESPECT TO BLOOD DRAWING ARTIFACT OR DILUTION ERROR OF ANTICOAGULANT AT THE TIME OF SAMPLING. Performed By: #### 3 1 #### [facility] [address] [place] [address], [facility] TYPE AND SCREENon 10-07-2021 ABO INTERPRETATION O Normal [facility] Comment on above: Performed By: #### 3 1790 #### [facility] [address] [place] [address], [facility] RH INTERPRETATION Positive Normal [facility] Comment on above: Performed By: #### 3 1791 #### [facility] [address] *MRSA/MSSA DNA NASALon 08-12 *MRSA/MSSA DNA NASAL Clinical Report: (D) Specimen: NASAL SWAB Collected: 08/12/2021 10:14 Status: Final Last Updated: 08/12/2021 18:58 MSSA DNA (Final) Negative MRSA DNA (Final) Negative Normal [facility] Comment on above: Performed By: #### 6 1405 #### [facility] [address] CBC W/DIFFon 08-12-2021 ABS IMM GRANS 0.0 10*3/uL Normal 0.0-0.2 [facility] Comment on above: Performed By: #### 6 1405 #### [facility] [address] ABS NEUTROPHILS 3.7 10*3/uL Normal 1.6-7.6 [facility] Comment on above: Performed By: #### 6 1405 #### [facility] [address] Basophils (Bld) [#/Vol] 0.0 10*3/uL Normal 0.0-0.2 [facility] Comment on above: Performed By: #### 6 1405 #### [facility] [address] Basophils/100 WBC (Bld) 0.3 % Normal 0.0-1.0 [facility] Comment on above: Performed By: #### 6 1405 #### [facility] [address] Eosinophils (Bld) [#/Vol] 0.2 10*3/uL Normal 0.0-0.5 [facility] Comment on above: Performed By: #### 6 1405 #### [facility] [address] [place] [address], [facility] Eosinophils/100 WBC (Bld) 2.9 % Normal 0.0-6.0 [facility] Comment on above: Performed By: #### 6 1405 #### [facility] [address] Erythrocyte distribution width (RBC) [Ratio] 14.0 % Normal 11.5-15.0 [facility] Comment on above: Performed By: #### 6 1405 #### [facility] [address] Hematocrit (Bld) [Volume fraction] 37.0 % Normal 36.0-45.0 [facility] Comment on above: Performed By: #### 6 1405 #### [facility] [address] Hemoglobin (Bld) [Mass/Vol] 11.6 g/dL Low 12.0-15.0 [facility] Comment on above: Performed By: #### 6 1405 #### [facility] [address] IMMATURE GRANS 0.3 % Normal 0.0-1.0 [facility] Comment on above: Performed By: #### 6 1405 #### [facility] [address] Lymphocytes (Bld) [#/Vol] 2.1 10*3/uL Normal 1.2-4.0 [facility] Comment on above: Performed By: #### 6 1405 #### [facility] [address] Lymphocytes/100 WBC (Bld) 32.5 % Normal 20.0-45.0 [facility] Comment on above: Performed By: #### 6 1405 #### [facility] [address] [facility] [address] MCH (RBC) [Entitic mass] 26.8 pg Low 27.0-33.0 [facility] Comment on above: Performed By: #### 6 1405 #### [facility] [address] [facility] [address] MCHC (RBC) [Mass/Vol] 31.4 g/dL Low 32.0-35.0 [facility] Comment on above: Performed By: #### 6 1405 #### [facility] [address] [place] [address], [facility] MCV (RBC) [Entitic vol] 85.5 fL Normal 82.0-98.0 [facility] Comment on above: Performed By: #### 6 1405 #### [facility] [address] Monocytes (Bld) [#/Vol] 0.5 10*3/uL Normal 0.1-1.0 [facility] Comment on above: Performed By: #### 6 1405 #### [facility] [address] MONOS 6.9 % Normal 5.0-12.0 [facility] Comment on above: Performed By: #### 6 1405 #### [facility] [address] [facility]. [address] Neutrophils/100 WBC (Bld) 57.1 % Normal 40.0-72.0 [facility] Comment on above: Performed By: #### 6 1405 #### [facility] [address] [facility] [place] [address], [facility] Nucleated RBC/100 WBC (Bld) [Ratio] 0 % Normal 0-0 [facility] Comment on above: Performed By: #### 6 1405 #### [facility] [address] [facility] [address] PLAT CNT 223 10*3/uL Normal 150-400 [facility] Comment on above: Performed By: #### 6 1405 #### [facility] [address] [facility] [place] [address], [facility] RBC (Bld) [#/Vol] 4.33 10*6/uL Normal 3.80-5.00 [facility] Comment on above: Performed By: #### 6 1405 #### [facility] [address] [facility] [place] [address], [facility] WBC (Bld) [#/Vol] 6.55 10*3/uL Normal 4.00-10.60 [facility] Comment on above: Performed By: #### 6 1405 #### [facility] [address] [facility] [place] [address], [facility] HEMOGLOBIN A1Con 08-12-2021 Glucose [Moles/Vol] 103 mmol/L Normal [facility] Comment on above: Performed By: #### 3 1791 #### [facility] [address] [facility] [place] [address], [facility] HbA1c (Bld) [Mass fraction] 5.2 % Normal 4.0-6.0 [facility] Comment on above: Performed By: #### 3 1791 #### [address] KNEE LEFT 3 VWSon 08-12-2021 KNEE LEFT 3 S [facility] Department of Radiology [address] [place] [phone] Patient Name: ELVI MOORE : 1980 Sex: F Age: Race: White Pt. Location: 84 Patient Status: O Ordered Date: 08/12/2021 8:40:00 AM Completed Date: 08/12/2021 08:41 AM Requesting Provider: KEVIN LANE Attending Provider: KEVIN LANE Report Copy To: SELF, REFERRED Signs & Symptoms: M25.562 Pain in left knee I10 History: Comments: evaluate Exam: KNEE LEFT 3 S KNEE LEFT 3 S 08/12/2021 8:42 AM [...] report. Electronically signed: Jah Juarez. Transcribed by: [email or web address], User Resident: JODY KEITH Electronically Signed by: JAH JUAREZ @ 08/12/2021 03:46 PM I personally read this/these film(s) with this resident Normal [facility] Comment on above: Order Comment: evalu [...] _Zhane Tamez MD 12/30/17 16:02 EDT Normal [facility] Otolaryngology Office/Clinic Noteon 11-18-2017 Otolaryngology Office/Clinic Note [...] _Zhane Tamez MD 11/18/17 16:31 EST Normal [facility] Otolaryngology Office/Clinic Note Patient seen for dispense of bilateral swim plugs. Both plugs display good fit in the ears, and patient confirmed comfort of fit. Proper insertion/removal was practiced successfully. Plan: Return if issues arise regarding swim plugs. N/C, swim plugs paid at last appointment.Electronicall y signed by _Rima Muñoz 11/18/17 16:04 EST Normal [facility] Otolaryngology Office/Clinic Noteon 10-28-2017 Otolaryngology Office/Clinic Note [...] _Kyara Rima Roque 10/28/17 16:31 EST Normal [facility] Otolaryngology Office/Clinic Note Chief Complaint post-opHistory of [...] _Zhane Tamez MD 10/28/17 15:41 EST Normal [facility] Otolaryngology Office/Clinic Noteon 09-16-2017 Otolaryngology Office/Clinic Note [...] _Zhane Tamez MD 09/16/17 16:06 EST Normal [facility] Otolaryngology Consultationo n 04-20-2017 Otolaryngology Consultation Chief [...] _Zhane Tamez MD 04/20/17 16:51 EDT Normal [facility] Vital Signs Date Time Vital Sign Value Performing Clinician Facility 03-07-2024 16:03-0400 Blood Pressure Location [employer] [facility] 03-07-2024 16:03-0400 Body temperature 97.88 [degF] ELIZABETH STEPH [facility] 03-07-2024 16:03-0400 Diastolic blood pressure 80 mm[Hg] ELIZABETH STEPH [facility] 03-07-2024 16:03-0400 Heart rate 87 /min [employer] [facility] 03-07-2024 16:03-0400 Respiratory rate 16 /min [facility] 03-07-2024 16:03-0400 Systolic blood pressure 124 mm[Hg] ELIZABETH STEPH [facility] 01-06-2024 18:12-0400 Body height 167.64 cm MD Arleth Acharya Work Phone: 01-06-2024 18:12-0400 Body mass index (BMI) [Ratio] 25.6 kg/m2 MD Arleth Acharya Work Phone: 01-06-2024 18:12-0400 Body temperature 98.2 [degF] MD Arleth Acharya Work Phone: 01-06-2024 18:12-0400 Body weight 72 kg MD Arleth Acharya Work Phone: 01-06-2024 18:12-0400 Heart rate 93 /min MD Arleth Acharya Work Phone: 01-06-2024 18:12-0400 Respiratory rate 16 /min MD Arleth Acharya Work Phone: 01-06-2024 18:12-0400 SaO2% (BldA) [Mass fraction] 99 % MD Arleth Acharya Work Phone: 09-13-2023 12:04-0500 Blood Pressure Location Diana HAWKINS [facility] 09-13-2023 12:04-0500 Diastolic blood pressure 74 mm[Hg] Diana HAWKINS [facility] 09-13-2023 12:04-0500 Heart rate 64 /min Diana HAWKINS [facility] 09-13-2023 12:04-0500 Respiratory rate 16 /min Diana HAWKINS [facility] 09-13-2023 12:04-0500 Systolic blood pressure 128 mm[Hg] Diana HAWKINS [facility] of [facility] 05-28-2023 11:12-0400 Body temperature 98 [degF] MD Arleth Acharya Work Phone: 05-28-2023 11:12-0400 Body weight 70.76 kg MD Arleth Acharya Work Phone: 05-28-2023 11:12-0400 Diastolic blood pressure 94 mm[Hg] MD Arleth Acharya Work Phone: 05-28-2023 11:12-0400 Heart rate 88 /min MD Arleth Acharya Work Phone: 05-28-2023 11:12-0400 Respiratory rate 16 /min MD Arleth Acharya Work Phone: 05-28-2023 11:12-0400 SaO2% (BldA) [Mass fraction] 98 % MD Arleth Acharya Work Phone: 05-28-2023 11:12-0400 Systolic blood pressure 131 mm[Hg] MD Arleth Acharya Work Phone: 05-28-2023 11:00-0400 Body height 167.64 cm MD Arleth Acharya Work Phone: 06-29-2022 09:25-0400 Blood Pressure Location Diana HAWKINS [facility] 06-29-2022 09:25-0400 Diastolic blood pressure 84 mm[Hg] Diana HAWKINS [facility] 06-29-2022 09:25-0400 Heart rate 84 /min Diana HAWKINS [facility] 06-29-2022 09:25-0400 Respiratory rate 16 /min Diana HAWKINS [facility] 06-29-2022 09:250400 Systolic blood pressure 115 mm[Hg] Diana HAWKINS [facility] Encounters Encounter Date Encounter Type Care Provider Facility Start: 03-19-2025 End: 03-19-2025 Bamboo flowsheet Eduardo Tano DO Work Phone: [facility] Start: 03-19-2025 End: 03-19-2025 Bamboo flowsheet Eduardo Tano DO Work Phone: [facility] Start: 01-26-2025 ambulatory RUKHSANA MILLER [facility] Start: 01-11-2025 End: 01-11-2025 Evaluation and management of inpatient ARLETH M [facility] Start: 12-25-2024 End: 12-25-2024 ambulatory [facility] Start: 12-08-2024 End: 12-08-2024 Emergency department patient visit ARLETH M [facility] Start: 12-05-2024 End: 12-05-2024 ambulatory [facility] Start: 10-19-2024 ambulatory RUKHSANA MILLER [facility] Start: 08-09-2024 End: 08-09-2024 Emergency department patient visit ARLETH M [facility] Start: 07-24-2024 End: 07-24-2024 ambulatory [facility] Start: 07-19-2024 ambulatory RUKHSANA MILLER [facility] Start: 07-17-2024 End: 07-17-2024 ambulatory BILL BROWN [facility] Start: 07-14-2024 End: 07-14-2024 ambulatory KHRIS King [facility] Start: 06-01-2024 End: 06-01-2024 ambulatory KHRIS King [facility] Start: 05-01-2024 End: 05-03-2024 [facility] Start: 05-01-2024 End: 05-03-2024 Subsequent hospital visit by physician [facility] Cat Scan Room [facility] Scan 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 Start: 03-22-2024 End: 03-22-2024 Departed Referred MD Arleth Acharya Work Phone: [facility] Start: 03-22-2024 End: 03-22-2024 ambulatory MD Arleth Acharya Work Phone: [facility] Work Phone: Start: 03-17-2024 ambulatory RUKHSANA [place] [facility] Start: 03-07-2024 End: 03-07-2024 ambulatory ELIZABETH VACA Facility:[facility] Start: 03-07-2024 End: 03-07-2024 Patient encounter procedure ELIZABETH VACA [facility] Start: 03-06-2024 End: 03-07-2024 Emergency department patient visit [facility] Start: 03-06-2024 End: 03-07-2024 Emergency department patient visit [facility] Start: 02-15-2024 End: 02-15-2024 ambulatory [place] Jacqueline [facility] Start: 02-08-2024 End: 02-08-2024 ambulatory DIANA HAWKINS [facility] Start: 02-07-2024 ambulatory Diana HAWKINS [facility] ty:[facility] Start: 01-06-2024 End: 01-06-2024 ambulatory MD Arleth Acharya Work Phone: [facility] Work Phone: Start: 01-06-2024 End: 01-06-2024 Patient encounter procedure MD Arleth Acharya Work Phone: [facility] Work Phone: Start: 10-12-2023 End: 10-12-2023 Patient encounter procedure Diana HAWKINS [facility] Start: 09-13-2023 End: 09-13-2023 Patient encounter procedure Diana HAWKINS [facility] Start: 06-28-2023 ambulatory Osiris Calderón Facility: Start: 05-28-2023 End: 05-28-2023 ambulatory MD Arleth Acharya Work Phone: [facility] Work Phone: Start: 05-28-2023 End: 05-28-2023 Registered Recurring MD Arleth Acharya Work Phone: [facility] Work Phone: Start: 01-25-2023 End: 01-25-2023 ambulatory GENNA HEATON Facility:[facility] Start: 01-21-2023 End: 01-22-[address] ARLETH ACHARYA . Facility:[facility] Start: 01-04-2023 End: 01-04-2023 Patient encounter procedure Diana HAWKINS [facility] Start: 10-10-[address] ARLETH ACHARYA . Facili ty:[facility] Start: 10-06-2022 End: 10-06-[address] ARLETH ACHARYA . Facility:[facility] Start: 09-30-2022 End: 10-01-[address] ARLETH ACHARYA . Facility:[facility] Start: 09-21-2022 End: 09-21-[address] ARLETH ACHARYA . Facility:[facility] Start: 08-27-2022 Encounter for preprocedural laboratory examination DR DIANA HAWKINS . [facility] Start: 08-27-2022 End: 08-27-[address] [...] encounter procedure Diana HAWKINS [facility] Start: 06-11-[address] Facility :[facility] Start: 06-09-2022 End: 06-11-[address] Facility:[facility] Start: 06-03-2022 End: 06-03-2022 Emergency department patient visit ARLETH ACHARYA Facility:[facility] Start: 06-01-2022 End: 06-01-2022 Evaluation and management of inpatient Kevin Lane Facility:[facility] Start: 05-26-2022 End: 05-27-[address] Facility:[facility] Start: 05-26-2022 End: 05-27-2022 Encounter for preprocedural laboratory examination Kevin Lane Facility:[facility] Start: 05-16-2022 ambulatory NICK YOO Facility: Start: 05-01-2022 End: 05-02-2022 ambulatory NICK YOO Facility: Start: 04-29-2022 End: 04-29-2022 ambulatory ENEDINA IVEY . Facility: Start: 04-16-2022 End: 04-17-[address] ARLETH ACHARYA . Facility: Start: 04-07-2022 End: 04-08-2022 ambulatory Kevin Gehling Facility:[facility] Start: 03-24-2022 End: 03-25-2022 ambulatory REFERRED SELF Facility:[facility] Start: 02-12-2022 End: 02-13-2022 ambulatory Kevin Rameyhling Facility:[facility] Start: 01-09-2022 End: 01-10-2022 ambulatory REFERRED SELF Facility:[facility] Start: 12-26-2021 End: 12-27-2021 ambulatory REFERRED SELF Facility:[facility] Start: 12-09-2021 End: 12-10-2021 ambulatory REFERRED SELF Facility:[facility] Start: 10-30-2021 End: 10-31-2021 ambulatory Kevin Nassaring Facility:[facility] Start: 10-11-2021 End: 11-11-2021 ambulatory Kevin Nassaring Facility:[facility] Start: 10-07-2021 End: 10-08-2021 ambulatory Kevin Nassaring Facility:[facility] Start: 10-06-2021 End: 10-11-2021 ambulatory Kevin Nassaring Facility:[facility] Start: 08-12-2021 End: 08-13-2021 ambulatory REFERRED SELF Facility:[facility] Start: 2017 End: 12-31-2017 Ambulatory ZHANE TAMEZ Facility:[facility] Start: 11-18-2017 End: 11-19-2017 Ambulatory ZHANE TAMEZ Facility:[facility] Start: 10-28-2017 End: 10-29-2017 Ambulatory Rima Sparrow Facility:[facility] Start: 10-14-2017 End: 10-15-2017 Ambulatory ZHANE TAMEZ Facility:[facility] Start: 09-16-2017 End: 09-17-2017 Ambulatory ZHANE W JAY JAY Facility:[facility] Start: 06-24-2017 Ambulatory ZHANE W JAY JAY Facility :[facility] Start: 04-20-2017 End: 04-21-2017 Ambulatory ZHANE W JAY JAY Facility:[facility] Procedures Date Procedure Procedure Detail Performing Clinician Start: 01-06-2024 X-ray of left ankle MD Arelth Acharya Work Phone: Start: 10-12-2023 Cystoscopic removal of ureteric stent ELIZABETH VACA Start: 09-16-2023 Cystoscopic laser lithotripsy of ureteric calculus ELIZABETH VACA Start: 08-27-2022 Cystoscopic removal of ureteric stent Diana HAWKINS Start: 07-23-2022 Cystoscopic insertio n of ureteric stent Diana HAWKINS Start: 10-07-[address] Comment on above: Performed By: #### 3 [id number] #### [address] Appendectomy Diana HAWKINS Arthroplasty of knee Diana HAWKINS Arthroscopy of knee Diana HAWKINS Bypass of stomach Diana FLORENTINO GRIMES Cholecystectomy Diana CARLA ALVARADO Hysterectomy Diana HAWKINS Implantation of temp orary spinal cord stimulator Diana HAWKINS Tonsillectomy Diana HAWKINS Plan of Treatment Date Care Activity Detail Author Start: 06-11-2025 Influenza vaccination Influenz a Vaccine (Season Ended) [facility] Start: 03-19-2025 End: 03-19-2025 Patient encounter procedure 03/19/2025 4:00 PM EDT Office Visit [facility] [address] [place] [address] Eduardo Freedman, [address] [place] [address] Arrived [facility] Comment on above: Arrived Start: 05-11-2024 Influenza vaccination Flu vaccine (# 1) [facility] Start: 06-11-2023 COVID-19 Vaccine ( season) COVID-19 Vaccine ( season) [facility] Start: 05-28-2023 Start: 2021 Lipid panel Lipids [facility] Start: 2021 Screening for malign ant neoplasm of breast [facility] Start: 07-10-2021 DTaP/Tdap/Td vaccine (2 - Td or Tdap) DTaP/Tdap/Td vaccine (2 - Td or Tdap) [facility] Start: 2016 Diabetes screen Diabetes screen [facility] Start: 12-31-2011 Screening for malign ant neoplasm of cervix [facility] Start: 2002 Screening for malign ant neoplasm of cervix Pap Smear [facility] Start: 12-31-1999 Hepatitis C screening Hepatitis C sc reen [facility] Start: 1996 HIV screening HIV screen [facility] Start: 1993 Depression Screen Depression Screen [facility] Start: 1982 Varicella vaccine (1 of 2 - 2-dose childhood series) Varicella vaccine (1 of 2 - 2-dose childhood series) [facility] Start: 1981 Hepatitis B vaccine (1 of 3 - 3-dose series) Hepatitis B vaccine (1 of 3 - 3-dose series) [facility] End: 05-01-2024 CT Neck W contrast IV [facility] Work Phone: Comment on above: 1 Occurrences starti ng 05/01/2024 until 05/01/2024 Iron binding capacit y [Mass/volume] in Serum or Plasma Iron saturation [Mas s Fraction] in Serum or Plasma Immunizations Immunization Date Immunization Notes Care Provider Fa [facility] 07-29-2022 influenza virus vacc ine, unspecified formulation ELIZABETH VACA [facility] 07-29-2022 SARS-CoV-2 (COVID-19 ) [id number] ELIZABETH VACA [facility] 10-08-2021 SARS-CoV-2 (COVID-19 ) mRNA BNT-162b2 vax Diana HAWKINS [facility] 01-30-2021 SARS-CoV-2 (COVID-19 ) mRNA BNT-162b2 vax Diana HAWKINS [facility] 01-09-2021 SARS-CoV-2 (COVID-19 ) mRNA BNT-162b2 vax Diana HAWKINS [facility] 07-11-2020 influenza virus vacc ine, unspecified formulation Diana HAWKINS [facility] 07-03-2020 influenza virus vacc ine, unspecified formulation Diana HAWKINS [facility] 07-18-2019 influenza virus vacc ine, unspecified formulation Diana HAWKINS [facility] 07-08-2018 influenza virus vacc ine, unspecified formulation Diana HAWKINS [facility] 01-01-2016 pneumococcal polysaccharide vaccine, 23 valent Diana HAWKINS [facility] 09-17-2013 influenza virus vacc ine, unspecified formulation Diana HAWKINS [facility] 07-10-2011 tetanus toxoid, redu demar diphtheria toxoid, and acellular pertussis vaccine, adsorbed Diana HAWKINS [facility] Payers Date Payer Category Payer Private Health Insurance [facility] [id number] 2023 Unknown [id number] 2017 Self-pay 2017 Unknown 2012 Unknown [id number] 2012 Unknown [id number] 1981 Unknown [id number] 2.840.1.664162.3.579. 2.647 1981 Unknown [id number] 2.840.1.638603.3.579. 2.647 1981 Unknown [id number] 2.840.1.065029.3.579. 2.647 1981 Unknown [id number] .840.1.520427.3.579. 2.647 1981 Unknown [id number] 2.840.1.124681.3.579. 2.647 1981 Unknown [id number] 2.840.1.176884.3.579. 2.647 1981 Unknown [id number] .840.1.515366.3.579. 2.647 1981 Unknown [id number] .840.1.799143.3.579. 2.647 1981 Unknown [id number] 2.16840.1.500748.3.579. 2.647 1981 Unknown [id number] 2.16840.1.822577.3.579. 2.647 1981 Unknown [id number] 2.840.1.752036.3.579. 2.647 1981 Unknown [id number] 2.16.840.1.182904.3.579. 2.647 1981 Unknown [id number] 2.16.840.1.024636.3.579. 2.647 1981 Unknown [id number] 2.16.840.1.252242.3.579. 2.647 1981 Unknown [id number] 2.16.840.1.299401.3.579. 2.647 1981 Unknown [id number] 2.16.840.1.868433.3.579. 2.647 1981 Unknown [id number] 2.16.840.1.893433.3.579. 2.593 1981 Unknown [id number] 2.16.840.1.381909.3.579. 2.593 1981 Unknown [id number] 2.840.1.992122.3.579. 2.593 1981 Unknown [id number] 2.840.1.884739.3.579. 2.593 1981 Unknown [id number] 2.16840.1.180430.3.579. 2.593 1981 Unknown [id number] 2.16840.1.254698.3.579. 2.593 1981 Unknown [id number] 2.16840.1.882536.3.579. 2.593 1981 Unknown [id number] 2.16.840.1.383084.3.579. 2.593 1981 Unknown [id number] 2.16.840.1.720618.3.579. 2.593 1981 Unknown [id number] 2.16.840.1.576127.3.579. 2.593 1981 Unknown [id number] 2.16.840.1.286059.3.579. 2.593 1981 Unknown [id number] 2.16.840.1.889513.3.579. 2.593 1981 Unknown [id number] 2.16.840.1.065210.3.579. 2.593 1981 Unknown [id number] 2.16.840.1.192811.3.579. 2.593 1981 Unknown [id number] 2.16840.1.030610.3.579. 2.593 1981 Unknown [id number] 2.16.840.1.698343.3.579. 2.593 1981 Unknown [id number] 2.840.1.912366.3.579. 2.593 1981 Unknown [id number] 2.840.1.465096.3.579. 2.593 1981 Unknown [id number] 2.840.1.088168.3.579. 2.173 1981 Unknown [id number] 2.16840.1.106667.3.579. 2.175 1981 Unknown [id number] 2.840.1.822390.3.579. 2.727 1981 Unknown [id number] 2.840.1.104119.3.579. 2.727 1981 Unknown [id number] 2.840.1.073869.3.579. 2.1286 1981 Unknown [id number] 2.840.1.064913.3.579. 2.1286 1981 Unknown [id number] 2.16840.1.114403.3.579. 2.1286 1981 Unknown [id number] 2.16.840.1.211159.3.579. 2.1286 1981 Unknown [id number] 2.16840.1.474966.3.579. 2.1286 1981 Unknown [id number] 2.16.840.1.827252.3.579. 2.1286 1981 Unknown [id number] 2.16840.1.186239.3.579. 2.1286 1959 Self-pay [id number] Unknown [id number] 2.16840.1.287015.3.579. 2.531 Unknown [id number] 2.840.1.087164.3.579. 2.531 Unknown [id number] 2.16.840.1.261526.3.579. 2.531 Social History Date Type Detail Facility Start: 06-29-2022 End: 04-18-2024 Tobacco smoking status Ex-smoker (finding) [facility] Start: 04-18-2024 Sex Assigned At Female [facility] Start: 1980 Sex Assigned At Female F [facility] Tobacco smoking status Never [facility] End: 06-11-2016 History of tobacco use Current smoker [facility] [employer] End: 06-11-2016 History of tobacco use Cigarette Smoker [facility] [employer] History of tobacco use Passive smoker [facility] [employer] Start: 04-18-2024 Tobacco use and exposure Smokeless tobacco non-user [facility] [employer] [employer] Start: 04-18-2024 Alcohol intake Current non-dr offc spec of alcohol (finding) [facility] [employer] Start: 04-18-2024 History of Social function [facility] [employer] Start: 1980 Sex Assigned At Not on file B [facility] Tobacco smoking status NHIS Tobacco smoking consumption unknown [facility] Functional Status Date Assessment Result Facility 03-07-2024 Functional Status N/A [facility] 10-12-2023 Functional Status N/A [facility] 09-13-2023 Functional Status N/A [facility] 06-29-2022 Functional Status N/A [facility] Clinical Notes 06-16-2022 to 01-26-2025 Note Date & Type Note Facility 01-26-2025 Note Pain Medicine Medical [address] [address] Subjective Patient ID: Elvi Moore is a 44 y.o. female. Date:01/26/25 44 year old female here follow up for chronic left leg pain. She recently had left genicular nerve block which did not provide any relief. She states the pain actually increased. She was also seen by orthopedics which stated the hardware in her knee is loosening and would not recommend surgery at this time currently due to risk of it not taking again. Her pain is a 6/10 and is worse with standing and it [...] the night due to her pain. She feels it is not getting the relief she use to previously with her medications. She also had to restart taking he lyrica as it was not helping. She is frustrated due to her pain being increased. SUBJECTIVE: Elvi Moore is a 44 y.o. female who presents for follow up with a chief complaint of left knee pain. Since last visit patient reports pain is stable. Most recently patient underwent a xray of her stimulator to verify lead position which are still in place despite retention loop lost. She is working with [employer] to aid in programming options but overall still is getting relief of 40-50% with her medications BID. She reports dealing with kidney stones and has an ER visit that she was given a short rx of norco so she could use QID temporarily. She disclosed this right away and was unsure what to do. 01/26/25 CC: Chief Complaint Patient presents with Follow-up Failed GTB Med Refill Lyrica Med Management Refill Prescott Pill Count No bottle Pain Assessment Pain Assessment: 0-10 Pain Score: 6 Pain Type: Chronic pain Pain Location: Knee Pain Orientation: Left Pain Descriptors: Sharp, Throbbing, Stabbing, Tingling Pain Frequency: Constant/continuous Pain Onset: Ongoing Clinical Progression: Gradually worsening Aggravating Factors: Walking, Standing Result of Injury: No Work-Related Injury: No Patient's Stated Pain Goal: No pain Pain Interventions: Medication (See MAR) Response to Interventions: Lt GTB no releif at all/Medications gives 65% relief last about 4 hours SCS gives 65% Past Medical History: Diagnosis Date Anemia Anxiety [...] SURGERY 06/01/2022 OTHER SURGICAL HISTORY 07/17/2024 Tumor OTHER SURGICAL HISTORY Left 12/05/2024 genicular nerve block SPINAL CORD STIMULATOR IMPLANT TUBAL LIGATION UMBILICAL [...] Plan 1. Chronic, continuous use of opioids HYDROcodone-acetaminophen (Prescott) 7.5-325 mg tablet 2. Complex regional pain syndrome type 1 of left lower extremity HYDROcodone-acetaminophen (Prescott) 7.5-325 mg tablet 3. Presence of neurostimulator HYDROcodone-acetaminophen (Prescott) 7.5-325 mg tablet 4. S/P left knee arthroscopy 5. Neuralgia and neuritis Discussed chronic pain, medication use, treatment goals. Medication risk and benefits discussed. The Spine Diagram and Test results were used to explain the condition. PLAN: 1. Increase Prescott 7.5/325mg TID PRN for severe pain 8-10 - continue to lyrica 100mg BID 2. MAPS/OARRS pulled and reviewed. -ORT/COT 07/2024 -ODS-07/2024 4. Order left genicular nerve block under fluoroscopy 3. Lumbar xrays reviewed with patient and reassured of proper lead placement and no migration issues. 4. Continue optimization of neurostimulation 5. RTC 12 weeks for medication management All questions are answered, and the patien (more content not included)... [facility] 12-25-2024 Note Orthopedic Surgery Subjective Edema, Follow-up, [...] Patient states that she quit smoking in 2016. 07/24/2024 Elvi Moore is a 43 y.o. [...] sees pain management and is currently taking Prescott every 8 hours and Lyrica. She also [...] Stable to ante (more content not included)... [facility] 10-19-2024 [place] [id number] Subjective Patient ID: Elvi Moore is a [...] applied Response to Interventions: Medication is effective, [facility] 43 year old female here follow up [...] retention loop lost. 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 Other chronic postprocedural pain pregabalin (Lyrica) 50 mg capsule HYDROcodone-acetaminophen (Prescott) 5-325 mg tablet 5. Presence of neurostimulator Discussed chronic pain, medication use, treatment goals. Medication risk and benefits discussed. The Spine Diagram and Test results were used to explain the condition. PLAN: 1. Continue Prescott 5/325mg TID PRN for severe pain 8-10 [...] questions are ans (more content not included)... [facility] 07-24-2024 Note Orthopedic Surgery Subjective New [...] sees pain management and is currently taking Prescott every 8 hours and Lyrica. She also [...] TKA with beltran (more content not included)... [facility] 07-19-2024 [place] [id number] Subjective Patient ID: Elvi Moore is a [...] retention loop lost. She is working with [employer] to aid in programming options but overall [...] to explain the condition. PLAN: 1. Continue Prescott 5/325mg TID PRN for severe pain 8-10 [...] to patient, patien (more content not included)... [facility] 06-01-2024 Note HPI 43 yo female [...] scan Blood work Appointment with Dr Burkett [facility] 03-17-2024 [place] [id number] Subjective Patient ID: Elvi Moore is a [...] retention loop lost. She is working with [employer] to aid in programming options but overall [...] type 1 of left lower extremity HYDROcodone-acetaminophen (Prescott) 5-325 mg tablet gabapentin (Neurontin) 300 mg capsule 2. Other chronic postprocedural pain HYDROcodone-acetaminophen (Prescott) 5-325 mg tablet gabapentin (Neurontin) 300 mg capsule Discussed chronic pain, medication use, treatment goals. Medication risk and benefits discussed. The Spine Diagram and Test results were used to explain the condition. PLAN: 1. Continue Prescott 5/325mg TID PRN for severe pain 8- -gabapentin 300mg at night for one week [...] to compliance m (more content not included)... [facility] 03-07-2024 Hospital Discharge instructions Patient Education [...] include: ?8 oz (237 mL) of milk, morlmlr-jvgexmgimism-xnmoq milk, and calcium-fortifiedfruit juice. Calcium-fortified means that [...] ?Spinach (cooked), rhubarb, beets, sweet potatoes, and Salvadorean chard. ?Peanuts. ?Potato chips, montserratian fries, and baked potatoes with skin on. ?Nuts and nut products. ?Chocolate. If you regularly take a diuretic medicine, make sure to eat at least 1 or 2 servings of fruits or vegetables that are high in potassium each day. These include: ?Avocado. ?Banana. ?Page, prune, carrot, or tomato juice. ?Baked potato. [...] magnesium, fish oil, or vitamin B6. Take udvp-ozo-jjrmljw and prescription medicines only as told by [...] Casseroles. Pizza. Lasagna. Frozen meals. Potato chips. [place]er fries. The items listed above may not [...] provider. Document Revised: 01/07/2023 Document Reviewed: 01/07/2023 Elsevier Patient Education 2022 [employer]. Follow Up Care 01/26/2024 10:43:28 With:ELIZABETH VACA PA-C, URL Address: [address] [place] [address] [phone] When: Unknown [facility] 10-12-2023 Hospital Discharge instructions Patient Education [...] HAWKINS Address: [facility] [address] [place] [address]- Business (1) When:01/11/2024 10:36:33 Comments:With a stone metabolic workup [facility] 09-13-2023 Hospital Discharge instructions Patient Education [...] including vitamins, herbs, eye drops, creams, and ckei-rcv-pyzyiyg medicines. Any problems you or family members [...] provider tells you to take them. Taking ocok-wzx-wivbmkg medicines, vitamins, herbs, and supplements. Tests You [...] Follow these instructions at home: Medicines Take jyyq-mnl-zdqyuan and prescription medicines only as told by [...] provider. Document Revised: 06/10/2022 Document Reviewed: 05/09/2021 Cometa Patient Education 2022 [employer]. 09/13/2023 12:55:19 Hematuria, Adult Hematuria, Adult Hematuria [...] Follow these instructions at home: Medicines Take folc-bjo-hxxtqme and prescription medicines only as told by [...] or the blood stops without treatment. Take ilcj-xsa-mwnstyr and prescription medicines only as told by your health care provider. Drink enough fluid to keep your urine pale yellow. This information is not intended to replace advice given to you by your health care provider. Make sure you discuss any questions you have with your health care provider. Document Revised: 05/28/2021 Document Reviewed: 05/28/2021 Cometa Patient Education 2022 [employer]. Follow Up Care 08/20/2023 11:43:21 With:ROSS GENTILE, Diana Goss, URL Address: [facility] [address] , [place] [address] [phone] When: Unknown Comments:myra cysto [facility] 01-04-2023 Hospital Discharge instructions Patient Education [...] include: ?Spinach. ?Rhubarb. ?Beets. ?Potato chips and montserratian fries. ?Nuts. If you regularly take a diuretic medicine, make sure to eat at least 1 2 fruits or vegetables high in potassium each day. These include: ?Avocado. ?Banana. ?Page, prune, carrot, or tomato juice. ?Baked potato. [...] Casseroles. Pizza. Lasagna. Frozen meals. Potato chips. [place]er fries. Summary You can reduce your risk [...] 01/22/2012 Document Revised: 01/17/2020 Document Reviewed: 09/07/2017 Cometa Patient Education 2019 [employer]. Follow Up Care 10/29/2022 14:23:18 With:ROSS GENTILE, Diana Goss, URL Address: [facility] [address] , [place] [address]- When: Unknown [facility] 06-29-2022 Evaluation + Plan note Diagnostic Tests [facility] 06/29/22 [facility] 06-29-2022 Hospital Discharge instructions Patient Education [...] Follow these instructions at home: Medicines Take zcvo-eqr-kgfuwej and prescription medicines only as told by [...] or the blood stops without treatment. Take pwlw-ctw-gnnhvmg and prescription medicines only as told by your health care provider. Drink enough fluid to keep your urine clear or pale yellow. This information is not intended to replace advice given to you by your health care provider. Make sure you discuss any questions you have with your health care provider. Document Released: 09/27/2006 Document Revised: 02/21/2020 Document Reviewed: 10/30/2017 ElseRiskalyze Patient Education 2020 [employer]. Follow Up Care 05/06/2022 15:50:29 With:ROSS GENTILE, Diana Goss, URL Address: [facility] [address] , [place] [address] [phone] When: Unknown [facility] 06-16-2022 Note MR#: [id number] I [facility] Pt. Name: Elvi Moore [...] Cavazos MD Date Trans: 06/16/2022 02:27 P/mmo [id number] cc: Arleth Acharya M.D. [address] [place] [address] [facility] Evaluation + Plan note Future Appointments Appointment Date:01/11/2023 01:45:00 PM Scheduled Provider:Diana HAWKINS MD Location:[facility] Appointment Type:URO Office Visit [facility] Evaluation + Plan note Future Appointments Appointment Date:02/07/2024 10:15:00 AM Scheduled Provider:Diana HAWKINS MD Location:[facility] Appointment Type:URO Office Visit [facility] Evaluation note No assessment inform ation available [facility] Work Phone: Evaluation note Diagnosis Onset Date Left ankle sprain noneactive [facility] Work Phone: Evaluation note* Diagnosis Pleomorphic adenoma of parotid gland documented in this encounter [facility] Narrative No data available for this section [facility] progress note No data available for this section [facility] Summary Purpose Family History Relationship Condition Age at Onset Recorded Date/T norman sister Malignant neoplasm of breast Unknown Not Specified Neoplasm of brain Unknown Relationship Condition Age at Onset Recorded Date/T norman sister Malignant neoplasm of breast Unknown mother Neoplasm of brain Unknown Advance Directives Advance Directive Response Recorded Date/ Time Advance [...] NECK W CONTRAST Bill Brown MD [address] [address] Referral ID Status Reason Start Date Expiration Date Visits Re quested Visits Authorized [id number] Closed 05/01/2024 07/29/2024 1 1 Additional Source Comments INFORMATION SOURCE (unrecogn ized section and content) DATE CREATED AUTHOR 03/31/2018 [facility] DATE CREATED AUTHOR AUTHOR'S ORGANIZ ATION 06/23/2022 [facility] DATE CREATED AUTHOR AUTHOR'S ORGANIZ ATION 01/28/2023 [facility] DATE CREATED AUTHOR AUTHOR'S ORGANIZ ATION 03/31/2024 [facility] DATE CREATED AUTHOR AUTHOR'S ORGANIZ ATION 05/04/[address] [facility] DATE CREATED AUTHOR AUTHOR'S ORGANIZ ATION 07/19/2024 [facility] DATE CREATED AUTHOR AUTHOR'S ORGANIZ ATION 10/27/2024 [facility] DATE CREATED AUTHOR AUTHOR'S ORGANIZ ATION 01/14/2025 [facility] DATE CREATED AUTHOR AUTHOR'S ORGANIZ ATION 02/27/2025 [facility] Care Team (unrecognized sect ion and [...] March 22, 2024 End: March 22, 2024 Lab Asst Relationship Specialty Start Date End Date Arleth Acharya MD [address] [place] [address] PCP - General 12/30/14 Goals (unrecognized section and content) Goals may be documented in a n alternate section Reason for Visit (unrecogniz ed section and content) Specialty Diagnoses / Procedures Referred By Contac t Referred To Contact Radiology Diagnoses Pleomorphic adenoma of parotid gland Procedures CT SOFT TISSUE NECK W CONTRAST Bill Brown MD [address] [place] [address] Referral ID Status Reason Start Date Expiration Date Visits Re quested Visits Authorized [id number] Closed 05/01/2024 07/29/2024 1 1 FOR RECORDS [...] BE BASED ON THE PRIMARY CLINICAL RECORDS. [facility] [employer] [facility]. provides no warranty or guarantee of the accuracy or completeness of information in this document.
[2025-03-23 16:09] LABS: Age Gdln ACOG Testing Note (.); HPV Aptima Negative (Negative); IGP, Aptima HPV, rfx 16/18,45 Note (.)
== END 2025-03-19 20:21 | disposition home or self-care (01) ==
LOC: LAB 20:20
PROVIDERS: PCP Family Medicine; Visit Provider Obstetrics & Gynecology
DX: Z01.419 Encounter for gynecological examination (general) (routine) without abnormal findings (principal)
CPT/HCPCS: 88175

== ENCOUNTER 2025-05-04 09:44 | Outpatient (RCR) | payer OTHER, SELFPAY ==
[2025-05-04 11:05] VITALS: BP 132/95; PULSE 80; TEMP 36.3; O2SAT 100
--- NOTE | 2025-05-04 11:08 | PC.NURSE ---
0950: Pt. arrived in department for IVF x 2L. Pleasant and talkative. Denies discomfort at this time, but states has been feeling very poorly at home--n/v, h/a. Water offered; pt. requests Pepsi. Unable to start IV after two attempts. Another experienced nurse attempted x3 without success. Called for accounting clerk to attempt, but pt. declined additional attempts. Left ambulatory to private vehicle. Stated she would contact Dr. Ledesma. 1104: Harshaw text sent to Dr. Ledesma notifying him of our inability to gain IV access and pt not receiving prescribed fluids. No new orders received at this time.
== END 2025-05-10 23:59 | disposition home or self-care (01) ==
LOC: INF 09:44
PROVIDERS: PCP Family Medicine; Visit Provider Family Medicine
DX: E86.0 Dehydration (principal)

== ENCOUNTER 2025-05-04 12:38 | Outpatient (OUT) | payer OTHER, SELFPAY ==
--- OUTSIDE RECORDS SUMMARY | 2025-04-20 06:20 | XMS_ITS ---
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 0 Assessments Encounter Date Diagnosis (ICD Code) Assessment Notes Treatment Notes Treatment Clinical Notes Section Notes 04/20/2025 Nephrolithiasis (ICD-10 - N20.0) Plan Of Treatment Medication Medication Name Sig Start Date Stop Date Notes tiZANidine HCl 4 MG 2 capsules Orally Q HS for 30 days Progress Notes * Elvi MOORE LDOB:[birth year] (44 yo F)Acc No.[id number]:04/20/2025 Patient: Elvi MENDIOLA :1980 A ge:44 Y S ex:Female Address[address] [address] * Refills Refill tiZANidine HCl Tablet, 4 MG, Orally, 60, 2 capsules, Q HS, 30 days, Refills=3 * true * Date: Generated for Onelia kruger/Dipesh/Shericeitting on: 0 05/04/2025 12:41 PM EDT
--- OUTSIDE RECORDS SUMMARY | 2025-04-24 15:20 | XMS_ITS | Encounter Summary ---
Author Organization [facility] Address [address] [place] [address] Care Team Providers Care Animal Stunner Name Role Phone Yasir Ledesma MD Primary Care Provider [phone] Tyrel King MD Unavailable Reason for Visit * Reason Comments Med Management Refill Sterling and Lyr ica Pill count No bottle Follow-up SCS Encounter Details Date Type Department Care Team (Late st Contact Info) Description 04/24/2025 3:20 PM EDT Follow-Up [facility] [address] [place] [address] [place] [address] Alaina King CNP [address] [place] [address] [id number] Complex regional pain syndrome type 1 of left lower extremity (Primary Dx); Neuralgia and neuritis; Presence of neurostimulator; Other chronic postprocedural pain; Chronic, continuous use of opioids Social History Tobacco Use Types Packs/Day Years Used Date Smoking Tobacco: Former Cigarettes Q uit: 12/18/1997 Passive Smoke Exposure: Current Smokeless Tobacco: Never Tobacco Cessation:Counseling Given: Not Answered Alcohol Use Standard Drinks/Week Comments Never 0 (1 standard drink = 0.6 oz pur e alcohol) [facility] Utilities Answer Date Recorded In the past 12 months has e electric, gas, oil, or water company threatened to shut off services in your home? No 12/25/2024 Humiliation, Afraid, Rape, and Kick questionnair e Answer Date Recorded Within the last year, have y ou been afraid of your partner or ex-partner? No 04/24/2025 Emotionally Abused Not on file 04/24/2025 Physically Abused Not on file 04/24/2025 Sexually Abused Not on file 04/24/2025 Social Connection and Isolat ion Panel [NHANES] Answer Date Recorded In a typical week, how many times do you talk on the phone with family, friends, or neighbors? More than three times a week 08/13/2022 How often do you get togethe r with friends or relatives? Once a week 08/13/2022 How often do you attend chur ch or yarsani services? More than 4 times per year 08/13/2022 Do you belong to any clubs o r organizations such as yarsanism groups, unions, fraternal or athletic groups, or [...] care, and heating? Not hard at all 04/24/2025 PHQ-2 Answer Date Recorded Patient Health Questionnaire-2 Score 0 04/24/2025 [facility] Occupat ional Health - Occupational Stress [...] medical appointments or from getting medications? No 04/24/2025 Lack of Transportation (Non-Medical) Not on file 04/24/2025 Housing Stability Vital Sign Answer Jesse e Recorded In the last 12 months, was t here a time when you were not able to pay the mortgage or rent on time? No 04/24/2025 Number of Times Moved in the Last Year Not on fi le 04/24/2025 At any time in the past [facility], were you homeless or living in a longterm (including now)? No 04/24/2025 Hunger Vital Sign Answer Date Recorded Within the past 12 months, y ou worried that your food would run out before you got the money to buy more. Never true 04/24/20 25 Ran Out of Food in the Last Year Not on file 04/24/2025 Comments No Sex and Gender Information Value Date Recorded Sex Assigned at Female 07/19/2024 8:01 AM EDT Legal Sex Female 12:08 AM EDT Gender Identity Female 07/19/2024 8:01 AM EDT Sexual Orientation Don't know 07/19/2024 8: 01 AM EDT documented as of this encounter Last Filed Vital Signs Vital Sign Reading Time Taken Comments Blood Pressure 118/88 04/24/2025 3:23 PM EDT Pulse 95 04/24/2025 3:23 PM EDT Temperature - - Respiratory Rate - - Oxygen Saturation 100% 04/24/2025 3:23 PM EDT Inhaled Oxygen Concentration - - Weight 68.9 kg (152 lb) 04/24/2025 3:23 PM EDT Height 167.6 cm (5' 6 ) 04/24/2025 3:23 PM EDT Body Mass Index 24.53 04/24/2025 3:23 PM EDT documented in this encounter Functional Status documented as of this encounter Progress Notes * Alaina King CNP - 04/24/2025 3:20 PM EDT Images from the original note were not included. Pain Medicine Medical [address] [place] [address] Subjective Patient ID: Elvi Moore is a 44 y.o. female. 44 year old female here for follow up for medication management. She rates her pain 5/10 in her left knee. She continues on Sterling 7.5/325 TID and Lyrica 100 mg BID with good benefit. She denies adverse side effects. She is getting better coverage of pain relief with the increased dose of medication. She follows with Dr. Burkett. She reports getting great relief from her SCS but does not cover allareas of her knee pain. 04/24/25 CC: Chief Complaint Patient presents with Med Management Refill Sterling and Lyrica Pill count No bottle Follow-up SCS Pain Assessment Pain Assessment: 0-10 Pain Score: 5 - Moderate pain Pain Type: Chronic pain Pain Location: Knee Pain Orientation: Left Pain Descriptors: Aching, Sharp, Shooting, Stabbing, Throbbing Pain Frequency: Constant/continuous Pain Onset: Ongoing Clinical Progression: Not changed Aggravating Factors: Other (Comment) (Doing anything for to long) Result of Injury: No Work-Related Injury: No Patient's Stated Pain Goal: No pain Pain Interventions: Medication (See MAR), Cold pack, Heat applied Response to Interventions: Medication gives 60% last about 6 hours and SCS gives 75% relief SUBJECTIVE: Elvi Moore is a 44 y.o. female who presents for follow up with a chief complaint of left knee pain. Since last visit patient reports pain is stable. Most recently patient underwent a xray of her stimulator to verify lead position which are still in place despite retention loop lost. 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 She reports dealing with kidney stones and has an ER visit that she was given ashort rx of norco so she could use [...] Meperidine Rash Other reaction(s): Unknown Objective BP 118/88 Pulse 95 Ht 1.676 m (5' 6 ) Wt 68.9 kg (152 lb) BMI 24.53 kg/m?? General: well developed, well nourished, no acute distress Head: normocephalic and atraumatic Eyes: anicteric sclera, normal eye movements Ears: normal hearing Chest/Lungs: quiet, easy, unlabored breathing. Heart: no clubbing, cyanosis, edema Skin: intact without suspicious lesions or rashes Neuropsych: alert and cooperative; normal mood/affect articulates well Gait: normal Assessment/Plan Discussed chronic pain, medication use, treatment goals. Medication risk and benefits discussed. The Spine Diagram and Test results were used to explain the condition. PLAN: 1. Interventions: None today 2. Medications: Continue Sterling 7.5/325mg TID PRN for severe pain 8-10 - Continue to lyrica 100mg BID 3. MAPS/OARRS pulled and reviewed. -ORT/COT 07/2024 -ODS-07/2024 4. Lumbar xrays reviewed with patient and reassured of proper lead placement and no migration issues. 5. Continue optimization of neurostimulation 6. RTC 12 weeks for medication management All questions are answered, and the patient expresses a full understanding. Available imaging was reviewed with patient and discussed likelihood of pain generator and plan to evaluate and treat. Discussed risks, benefits, and alternatives of interventional procedures (including but not limited to bl eeding, infection, adverse reaction to medications and ineffective [...] with our office and agrees to compliance monitoringprotocol, which includes periodic urine/saliva drug screens, pill counts, and OARRS review. The patient understands the risk & benefits of opioid medications and agrees to not receive opioids from another provider. Medications are helping the patient???s personal goals, quality of life, functionality and self-care needs. The patient does not show signs of opioid abuse. The OARRS report has been checked today and it is acceptable. The last drug screen was compliant. Diagnosis Plan 1. Complex regional pain syndrome type 1 of left lower extremity HYDROcodone- acetaminophen (Sterling) 7.5-325 mg tablet pregabalin (Lyrica) 50 mg capsule 2. Neuralgia and neuritis 3. Presence of neurostimulator HYDROcodone-acetaminophen (Sterling) 7.5-325 mg tablet 4. Other chronic postprocedural pain pregabalin (Lyrica) 50 mg capsule 5. Chronic, continuous use of opioids HYDROcodone-acetaminophen (Sterling) 7.5-325 mg tablet documented in this encounter Plan of Treatment Upcoming Encounters Date Type Department Care Team (Late st Contact Info) Description 07/17/2025 8:40 AM EDT Follow-Up [facility] [address] [place] [address] [place] [address] Alaina King CNP [address] [place] [phone] documented as of this encounter Visit Diagnoses Diagnosis Complex regional pain syndrome type 1 of left lower extremity- Primary Neuralgia and neuritis Presence of neurostimulator Other chronic postprocedural pain Chronic, continuous use of opioids documented in this encounter Care Teams Animal Stunner Relationship Specialty Start Date End Date Yasir Ledesma MD [address] [facility] [address] [address] PCP - General 05/26/22 Tyrel King MD [address] [place], [place] Referring Physician Geriatric Medicine 11/03/22 documented as of this encounter
--- OUTSIDE RECORDS SUMMARY | 2025-05-04 04:45 | XMS_ITS ---
Author Organization [facility] in [place] Address [address] [place] [address] Care Team Providers Care Title 1 Tutor Name Role Phone Malachi Ledesma Primary Care Provider Allergies Allergen (clinical drug ingredient) Drug/Non Drug Allergy documented on EMR Reaction Allergy Type Onset Date Status meperidine Demerol Unknown Drug Allergy Active Compazine hallucinating Drug Allergy Act zohaib ketorolac Ketorolac Unknown Drug Allergy Active REASON FOR VISIT headaches, kidney stone- flank pain- UNABLE TO GIVE URINE, dizzy and passing out Medications Medication SIG (Take, Route, Frequency, Duration) Notes Start Date End Date Status Reglan 10 MG 1 tablet as needed O rally every 4 hrs for 30 days 01/20/2023 Active tiZANidine HCl 4 MG 2 capsules Orally Q HS for 30 days Active Topamax 50 MG 1 tablet Orally Once a day for 30 days 09/13/2023 Active Triamcinolone Acetonide 0.1 % 1 application Externally Twice a day for 30 11/22/2023 Active Wegovy 0.25 MG/0.5ML 0.25 mg Subcutaneou s weely for 30 days 12/06/2024 Active Pantoprazole Sodium 40 MG Take 2 [...] q6h for 30 days PRN 08/13/2023 Active Lisinopril 10 MG 1 tablet Orally Once a day for 30 days 12/01/2024 Active Meclizine HCl 25 MG 1 tablet as needed O rally every 12 hrs 05/04/2024 Active Ondansetron 4 MG 1 tablet on the tong ue and allow to dissolve Orally qid 03/12/2025 Active One A Day Women 50 Plus - as directed Orally Active Flomax 0.4 MG 1 capsule Orally Onc e a day for 30 days 01/12/2025 Active HYDROcodone-Acetaminophen 5-325 MG 1 tablet as needed Orally BID as needed (PAIN CLINIC) PRN Active Hyoscyamine Sulfate 0.125 MG 1-2 tabs SL SL every 4 hrs PRN abd pain 09/26/2024 Active Imitrex 100 MG 1 tablet at least 2 hours between doses as needed Orally Twice a day for 10 PRN 08/17/2023 Active Ferrous Sulfate 325 (65 Fe) MG 1 tablet Orally Once a day Active CeleXA 10 MG 1 tablet Orally Once a day for 30 days 12/01/2024 Active Cyanocobalamin 1000 MCG/ML 1 mL Injectio n once a month Active Dicyclomine HCl 20 MG 1 tablet Orally QI D for 30 days 10/23/2024 Active Albuterol Sulfate (2.5 MG/3ML) 0.083% 3 mL as needed Inhalation every 6 hrs 12/03/2023 Active Amitriptyline HCl 100 MG 1 tablet Orally at bedtime for 30 days Active Calcium 600 MG 2 tablet with meals Orally Once a day Active Carafate 1 GM 1 tablet on an empty stomach Orally QID Active Social History Tobacco Use: Social History Observation Description Date Details (start date - stop date) Former Smoker 10/11/1997 - 10/11/2018 Tobacco Use/Smoking Question Answer Notes Patient is a former smoker When did you start smoking? 10/11/1997 When did you stop smoking? 10/11/2018 How long has it been since you last smoked? 1-5 years Problems Problem Type SNOMED Code ICD Code Onset Dates Problem Status W/U Status Risk Notes Problem Kidney stone (N20.0) Active confirmed Vital Signs Weight 172.2 lbs 05/04/2025 Height 66 in 05/04/2025 Blood pressure systolic 110 mm Hg 05/04/20 25 Blood pressure diastolic 88 mm Hg 025 BMI 27.79 kg/m2 05/04/2025 Encounters Encounter Location Date Provider Diagnosis [facility] [address] [facility] [place] [address] 05/04/2025 Malachi Ledesma Dehydration E86.0 an d Kidney stone N20.0 Assessments Encounter Date Diagnosis (ICD Code) Assessment Notes Treatment Notes Treatment Clinical Notes Section Notes 05/04/2025 Dehydration (ICD-10 - E86.0) 05/04/2025 Kidney stone (ICD-10 - N20.0) Plan Of Treatment Pending Test Test Name Order Date Urinalysis Microscopic 05/04/2025 CULTURE URINE 05/04/2025 Medications Administered Medication Instructions Date of Administration Dosage Notes Promethazine 25mg 05/04/2025 2 mL Progress Notes * Elvi MOORE LDOB:[birth year] (44 yo F)Acc No.[id number]:05/04/2025 UNLOCKED PROGRESS NOTE Progress Note Patient: Elvi MENDIOLA Provider: Gee Ledesma ([facility])MD :1980 A ge:44 Y S ex:Female Date:05/04/2025 Address:[facility] [place] [facility] Check In:08:41 AM ESTCheck O ut:09:37 AM EST Subjective: * Chief Complaints: * 1 . Headaches. 2. kidney stone- flank pain- UNABLE TO GIVE URINE. 3. Dizzy and passing out. * HPI: G eneral: Feels like havig a stone headaches persisting Near syncope wiht standing up - jose with using bathroom -wiolling to try julia treatment. * ROS: E ENT: hearing changes d enies. v isual changes d enies.?non-healing mouth sores d enies. s wollen glands or neck lumps d enies. h oarseness d enies. s ore throat d enies. d ifficulty swallowing d enies. n ose bleeds d enies. n rob congestion d enies. e ar ache d enies. e ar discharge?denies. r inging in ears d enies. l ight sensitivity d enies. e ye pain d enies. b lurring d enies. e ye irritation d enies. d ouble vision d enies.?vision loss d enies. G eneral/Constitutional: Sweats: D enies. F atigue d enies. S leep problems d enies. A norexia d enies. M alaise d enies. W eight loss d enies.?Fatigue or Weakness d enies. F ever or Chills d enies. C ardiovascular: Shortness of Breath w/lying flat d enies. L ightheadedness/dizziness d enies. C hest tightness/ heavy pressure d enies. S welling of legs, ankles, or feet d enies. W aking up with shortness of breath d enies. C hest pain denies. P alpitations d enies. W eight gain d enies. R espiratory: Chronic or frequent cough d enies. C oughing up blood?denies. D ifficulty breathing d enies. P roductive cough d enies. S noring?denies. S hortness of breath that awakens from sleep (PND) d enies. C hest pain d enies. S putum production d enies. W heezing d enies. M usculoskeletal: Joint pain d enies. J oint Fluid d enies. B ack pain d enies. K nee pain d enies. N ulysses pain d enies. J oint Stiffness d enies. M uscle cramps d enies. W eakness of muscles d enies. A rthritis d enies. M uscle aches d enies. P ain in shoulder(s) d enies. S wollen joints d enies. * Medical History: C OVID-19 virus infection, Nephrolithiasis, Well adult, Other cystitis without hematuria, Vertigo, peripheral, Otitis media of left ear, Unspecified otitis externa, unspecified ear, Contact with and (suspected) exposure to other viral communicable diseases, Knee pain, Gastrojejunal ulcer, Dehydration, Cobalamin deficiency, Sprain of lateral collateral ligament of left knee, initial encounter, Arm pain, left, Pyelonephritis, Acute gastric ulcer, Adverse effect of unspecified drugs, medicaments and biological substances, initial encounter, Discharge from right nipple, Inversion of right nipple, Hemophilia, Common migraine, Acute recurrent frontal sinusitis, Colitis, Other marginal perforations of tympanic membrane, left ear, Personal history of other diseases of urinary system, Low back pain, unspecified, Contracture, unspecified ankle, Plantar fasciitis, Hypertension, Diverticulitis, Hiatal hernia, Cyst, ovarian, Diverticular disease, Osteoarthritis, Allergic rhinitis, seasonal, Contracture of muscle, unspecified shoulder. * Surgical History: G allbladder , Appendix , Hysterectomy , Gastric Bypass 2016, Left Knee Replacement x 2 , EGD 10/27/2023, Superficial Parotidectomy 08/03. * Hospitalization/Major Diagno stic Procedure: s ee above , Ulcerative Colitis 2023. * Family History: F ather: , diagnosed with Other malignant neoplasm of unspecified site, Diabetes mellitus without mention of complication, type II or unspecified type, not stated as uncontrolled, Unspecified essential hypertension. M other: alive. S ister(s): alive. B glener(s): diagnosed with Other malignant neoplasm of unspecified [...] you last smoked??1-5 years * Medications: T aking Albuterol Sulfate (2.5 MG/3ML) 0.083% Nebulization Solution 3 mL as needed Inhalation every 6 hrs , Taking Amitriptyline HCl 100 MG Tablet 1 tablet Orally at bedtime , Taking Calcium 600 MG Tablet 2 tablet with meals Orally Once a day , Taking Carafate(Sucralfate) 1 GM Tablet 1 tablet on an empty stomach Orally QID , Taking CeleXA(Citalopram Hydrobromide) 10 MG Tablet 1 tablet Orally Once a day , Taking Cyanocobalamin 1000 MCG/ML Solution 1 mL Injection once a month , Taking Dicyclomine HCl 20 MG Tablet 1 tablet Orally QID , Taking Ferrous Sulfate 325 (65 Fe) MG Tablet 1 tablet Orally Once a day , Taking Flomax 0.4 MG Capsule 1 capsule Orally Once a day , Taking HYDROcodone-Acetaminophen 5-325 MG Tablet 1 tablet as needed Orally BID as needed (PAIN CLINIC) , Notes to Pharmacist: PRN, Taking Hyoscyamine Sulfate 0.125 MG Tablet 1-2 tabs SL SL every 4 hrs PRN abd pain , Taking Imitrex(SUMAtriptan Succinate) 100 MG Tablet 1 tablet at least 2 hours between doses as needed Orally Twice a day , Notes to Pharmacist: PRN, Taking Lisinopril 10 MG Tablet 1 tablet Orally Once a day , Taking Meclizine HCl 25 MG Tablet 1 tablet as needed Orally every 12 hrs , Taking Ondansetron 4 MG Tablet Disintegrating 1 tablet on the tongue and allow to dissolve Orally qid , Taking One A Day Women 50 Plus(Multiple Vitamins-Minerals) - Tablet Chewable as directed Orally , Taking Pantoprazole Sodium 40 MG Tablet Delayed Release Take 2 tablets by mouth once daily. , Taking Pregabalin 50 MG Capsule 1 capsule Orally BID , Taking Premarin(Estrogens Conjugated) 0.625 MG/GM Cream 0.625 Vaginal Once a day , Taking Promethazine HCl 25 MG Suppository 1 suppository as needed Rectal every 6 hrs , Taking Promethazine HCl 25 MG Tablet 1 tablet as needed Orally q6h , Notes to Pharmacist: PRN, Taking Reglan(Metoclopramide HCl) 10 MG Tablet 1 tablet as needed Orally every 4 hrs , Taking tiZANidine HCl 4 MG Tablet 2 capsules Orally Q HS , Taking Topamax(Topiramate) 50 MG Tablet 1 tablet Orally Once a day , Taking Triamcinolone Acetonide 0.1 % Cream 1 application Externally Twice a day , Taking Wegovy(Semaglutide-Weight Management) 0.25 MG/0.5ML Solution Auto-injector 0.25 mg Subcutaneous weely , Discontinued Adipex- P(Phentermine HCl) 37.5 MG Tablet 1 tablet before breakfast Orally Once a day , Discontinued Cephalexin 500 MG Tablet 2 tabs Orally bid , Discontinued Hyoscyamine Sulfate 0.125 MG Tablet Sublingual 1-2 tabs SL SL every 4 hrs PRN abd pain , Discontinued Ozempic (0.25 or 0.5 MG/DOSE)(Semaglutide(0.25 or 0.5MG/DOS)) 2 MG/3ML Solution Pen- injector 0.25 mg Subcutaneous weekly , Medication List reviewed and reconciled with the patient * Allergies: D emerol - Criticality High, Ketorolac - Criticality Low, Compazine: hallucinating. Objective: * Vitals: W t:172.2lbs, Ht: 66 in, BP:110/88mm Hg, BMI:27.79Index, Ht-cm: 167.64 cm, Wt-k.11 kg. * Examination: P hysical Exam: GENERAL: w ell developed, well nourished, in no acute distress. HEAD: n ormocephalic/atraumatic. EYES: p upils equal, round and reactive to light, conjunctivae and sclerae normal. EARS: n o deformity or lesion of external ear, canals and TM appear normal bilaterally, TM's intact, not inflamed with normal light reflex, hearing grossly normal to conversational speech. NOSE: n o deformity, discharge, inflammation, or lesions.? MOUTH: m ucous membranes moist, normal oropharynx and posterior pharynx without lesions or exudates, tongue normal, dentition normal. NECK: n ulysses supple, no masses or palpable cervical nodes, trachea midline, thyroid without nodules, masses, tenderness, or enlargement. CHEST: n o chest wall deformity, no chest wall tenderness.? LUNGS: n ormal respiratory effort and clear to auscultation, no wheezes, rales, or rhonchi, good air exchange. CARDIO: r egular rate and rhythm, normal S1 and S2, nor murmur, rub, or gallop. PULSES: n ormal capillary refill. ABDOMEN: s oft, non-distended, non-tender, no masses. MUSCULOSKELETAL: n o deformity or scoliosis noted, normal range of motion, joints normal, no erythema, edema, effusion, or ecchymosis. EXTREMITY: n o clubbing, cyanosis, edema, or deformity with normal ROM in both upper and lower bilateral extremities. NEUROLOGIC: g rossly normal. SKIN: n o rashes, ulcerations, or suspicious lesions. LYMPH NODES: n o cervical adenopathy, nodes normal. MENTAL STATUS: a lert and oriented x3, normal mood and affect. Assessment: * Assessment: 1. D ehydration - E86.0 (Primary) 2 . K idney stone - N20.0 ? Plan: * Treatment: * Therapeutic Injections: Promethazine 25mg : 2 mL (Route: Intramuscular) given by EDMUNDO Bragg on right gluteus (Dehydration, Kidney stone) * Procedure Codes: J 2550 PHENERGAN 25MG * * Electronic signature of Malachi Ledesma MD, [id number] on 05/04/2025 at 12:41 PM EDT Sign off status: Pending Visit Status: C HK (Check Out) * Provider: Gee Ledesma ([facility])MD Date: 05/04/2025 Generated for Printi ng/Faxing/eTransmitting on: 05/04/2025 12:41 PM EDT History and Physical Notes * HPI (History of Present Illness) Category Sub-Category Detail Notes Category Not es General Feels like havig a stone headaches persisting Near syncope wiht standing up - jose with using bathroom -wiolling to try julia treatment Examination Category Sub-Category Detail Notes Category Not es Physical Exam GENERAL: well developed, well nourished, in no acute distress HEAD: normocephalic/atraum atic EYES: pupils equal, round and reactive to light, conjunctivae and sclerae normal EARS: no deformity or lesi on of external ear, canals and TM appear normal bilaterally, TM's intact, not inflamed with normal light reflex, hearing grossly normal to conversational speech NOSE: no deformity, discha rge, inflammation, or lesions MOUTH: mucous membranes pepe st, normal oropharynx and posterior pharynx without lesions or exudates, tongue normal, dentition normal NECK: neck supple, no mass es or palpable cervical nodes, trachea midline, thyroid without nodules, masses, tenderness, or enlargement CHEST: no chest wall deform ity, no chest wall tenderness LUNGS: normal respiratory e ffort and clear to auscultation, no wheezes, rales, or rhonchi, good air exchange CARDIO: regular rate and rhy thm, normal S1 and S2, nor murmur, rub, or gallop PULSES: normal capillary ref ill ABDOMEN: soft, non-distended, non-tender, no masses RECTAL: MUSCULOSKELETAL: no deformity or scol iosis noted, normal range of motion, joints normal, no erythema, edema, effusion, or ecchymosis EXTREMITY: no clubbing, cyanosi s, edema, or deformity with normal ROM in both upper and lower bilateral extremities NEUROLOGIC: grossly normal SKIN: no rashes, ulceratio ns, or suspicious lesions LYMPH NODES: no cervical adenopat hy, nodes normal MENTAL STATUS: alert and oriented x 3, normal mood and affect
--- OUTSIDE RECORDS SUMMARY | 2025-05-04 06:47 | XMS_ITS ---
Author Organization The [facility] in [place] Address [address] [place] [address] Care Team Providers Care Double Back Operator Name Role Phone Baltazar Malachi Primary Care Provider REASON FOR VISIT Adipex refill Encounters Encounter Location Date Provider Diagnosis [facility] [address] [place] [address] 05/04/2025 Malachi Baltazar Plan Of Treatment No Information Progress Notes * Elvi MOORE LDOB:[birth year] (44 yo F)Acc No.[id number]:05/04/2025 UNLOCKED PROGRESS NOTE Patient: Daysi MOSER Elvi Paiz :1980 A ge:44 Y S ex:Female Address:[address] [place] [address] * * Date:
--- OUTSIDE RECORDS SUMMARY | 2025-05-04 12:41 | XMS_ITS | Clinical Summary ---
Author Organization [facility] Address [address] [place], [place] [id number] Care Team Providers Care Steward/Stewardess Bath Name Role Phone Yasir Ledesma MD Primary Care Provider [phone] Allergies Active Allergy Reactions Criticality Noted Date [...] 4 mg by mouth. 7 Active therapeutic multivitamin-surface miner als (THERA-M PLUS) 9 mg iron-400 mcg [...] Family History Colon Cancer No Family History APPLICATIONS SCIENTIST cancer No Family History Relation Status Comments [...] N ot on file 09/18/2020 Data from: https://www.neighborhoodatlas.medicine.[email or web address].edu/. Last address used for calculation Not on [...] or Tdap) 07/10/2021 07/10/2011 Mammogram Screening 2021 Influenza Vaccine (#1) 2025 0, 07/18/2019, 07/11/2019, Additional history exists Care Teams Steward/Stewardess Bath Relationship Specialty Start Date End Date Yasir Ledesma MD PCP - General Family Medicine 08/17/12
--- OUTSIDE RECORDS SUMMARY | 2025-05-04 12:41 | XMS_ITS | Encounter Summary ---
Author Organization [facility] Address [address] [facility] [place] [address] Care Team Providers Care Supplier Quality Manager Name Role Phone Yasir Ledesma MD Primary Care Provider [phone] Tyrel King MD Unavailable Reason for Visit * Reason Onset Date Comments Med Refill 03/01/2023 Encounter Details Date Type Department Care Team (Late st Contact Info) Description 03/01/2023 Refill [facility] [address] [place] [address] Nohelia Reece, LAUREN [address] [place] [address] Complex regional pain syndrome type [...] any clubs o r organizations such as congregational groups, unions, fraternal or athletic groups, or [...] Recorded Patient Health Questionnaire-2 Score 0 01/08/2023 [facility] - [facility]ational Stress Questionnaire Answer [...] slept in a retirement (including now)? No 08/13/2022 Comments No Sex and Gender Information Value [...] Info) Description 07/17/2025 8:40 AM EDT Follow-Up [facility] [address] [place] [address] [place] [id number] Alaina King CNP [address] [facility] [address] [place] [id number] documented as of this encounter Visit Diagnoses Diagnosis Complex regional pain syndrome type 1 of left lower extremity documented in this encounter Care Teams Supplier Quality Manager Relationship Specialty Start Date End Date Yasir Ledesma MD [address] [facility] [address] [address] PCP - General 05/26/22 Tyrel King MD [address] [place], [place] Referring Physician Geriatric Medicine 11/03/22 documented as of this encounter
--- OUTSIDE RECORDS SUMMARY | 2025-05-04 12:41 | XMS_ITS | Encounter Summary ---
Author Organization [facility] Address [address] [place] [address] Care Team Providers Care Analytical Clerk Name Role Phone Yasir Ledesma MD Primary Care Provider [phone] Tyrel King MD Unavailable Reason for Visit * Reason Onset Date Comments Med Refill 12/13/2022 Encounter Details Date Type Department Care Team (Late st Contact Info) Description 12/13/2022 Refill [facility] [address] [place] [address] Nohelia Reece, LAUREN [address] [place] [phone] Chronic pain syndrome Social History Tobacco Use [...] often do you attend chur ch or shinto services? More than 4 times per year [...] Recorded Patient Health Questionnaire-2 Score 0 11/24/2022 [facility] - Occupational [...] in a longterm (including now)? No 08/13/2022 Comments No Sex [...] Info) Description 07/17/2025 8:40 AM EDT Follow-Up [facility] [address] [place] [phone] Alaina King CNP [address] [facility] [address] [place], [place] [id number] documented as of this encounter Visit Diagnoses Diagnosis Chronic pain syndrome documented in this encounter Care Teams Analytical Clerk Relationship Specialty Start Date End Date Yasir Ledesma MD [address] [facility] [address] [address] PCP - General 05/26/22 Tyrel King MD [address] [place], [place] Referring Physician Geriatric Medicine 11/03/22 documented as of this encounter
--- OUTSIDE RECORDS SUMMARY | 2025-05-04 12:41 | XMS_ITS | Encounter Summary ---
Author Organization [facility] Address [address] [facility] [place] [address] Care Team Providers Care Business Associate Name Role Phone Yasir Ledesma MD Primary Care Provider [phone] Tyrel King MD Unavailable Reason for Visit * Reason Onset Date Comments Med Refill 01/28/2023 Encounter Details Date Type Department Care Team (Late st Contact Info) Description 01/28/2023 Refill [facility] [address] [place] [address] Nohelia Reece, DATA WAREHOUSE MANAGER [address] [place] [address] Complex regional pain syndrome type [...] How often do you attend chur or voodoo services? More than 4 times per year 08/13/2022 Do you belong to any clubs o r organizations such as jain groups, unions, fraternal or athletic groups, or [...] Recorded Patient Health Questionnaire-2 Score 0 01/08/2023 [facility] - Occupational Stress Questionnaire [...] place to sleep or slept in a usp (including now)? No 08/13/2022 Comments No Sex [...] Info) Description 07/17/2025 8:40 AM EDT Follow-Up [facility] [address] [place] [address] [place] [phone] Alaina King CNP [address] [facility] [address] [id number] documented as of this encounter Visit Diagnoses Diagnosis Complex regional pain syndrome type 1 of left lower extremity documented in this encounter Care Teams Business Associate Relationship Specialty Start Date End Date Yasir Ledesma MD [address] [facility] [address] [address] PCP - General 05/26/22 Tyrel King MD [address] [place], [place] Referring Physician Geriatric Medicine 11/03/22 documented as of this encounter
--- OUTSIDE RECORDS SUMMARY | 2025-05-04 12:41 | XMS_ITS | Encounter Summary ---
Author Organization [facility] Address [address] [facility] [place] [address] Care Team Providers Care Executive Director Of Marketing Name Role Phone Yasir Ledesma MD Primary Care Provider [phone] Tyrel King MD Unavailable Reason for Visit * Reason Onset Date Comments Med Refill 01/28/2023 Encounter Details Date Type Department Care Team (Late st Contact Info) Description 01/28/2023 Refill [facility] [address] [place] [address] Nohelia Reece, OPHTHALMIC MEDICAL TECHNICIAN [address] [place] [address] Complex regional pain syndrome type [...] How often do you attend chur or synagogue services? More than 4 times per year 08/13/2022 Do you belong to any clubs o r organizations such as adventism groups, unions, fraternal or athletic groups, or [...] Recorded Patient Health Questionnaire-2 Score 0 01/08/2023 [facility] - Occupational Stress Questionnaire [...] place to sleep or slept in a snf (including now)? No 08/13/2022 Comments No Sex [...] Info) Description 07/17/2025 8:40 AM EDT Follow-Up [facility] [address] [place] [address] [place] [phone] Alaina King CNP [address] [facility] [place] [id number] documented as of this encounter Visit Diagnoses Diagnosis Complex regional pain syndrome type 1 of left lower extremity documented in this encounter Care Teams Executive Director Of Marketing Relationship Specialty Start Date End Date Yasir Ledesma MD [address] [facility] [address] [address] PCP - General 05/26/22 Tyrel King MD [address] [place], [place] Referring Physician Geriatric Medicine 11/03/22 documented as of this encounter
--- OUTSIDE RECORDS SUMMARY | 2025-05-04 12:41 | XMS_ITS | Encounter Summary ---
Author Organization [facility] Address [address] [facility] [place] [address] Care Team Providers Care Financial Reporting Advisor Name Role Phone Yasir Ledesma MD Primary Care Provider [phone] Tyrel King MD Unavailable Reason for Visit * Reason Onset Date Comments Med Refill 01/17/2024 Encounter Details Date Type Department Care Team (Late st Contact Info) Description 01/17/2024 Refill [facility] Pain Medicine [address] [facility] [place] [address] Nohelia Reece, LAUREN [address] [place] [address] Complex regional pain syndrome type [...] often do you attend chur ch or zoroastrianism services? More than 4 times per year 08/13/2022 Do you belong to any clubs o r organizations such as tenriism groups, unions, fraternal or athletic groups, or [...] Recorded Patient Health Questionnaire-2 Score 2 12/24/2023 [facility] Occupat iontx Health - Occupational Stress Questionnaire Answer Date [...] place to sleep or slept in a nursing home (including now)? No 06/01/2023 Hunger Vital Sign Answer Date Recorded Within the past 12 months, y ou worried that your food would run out before you got the money to buy more. Never true 06/01/20 23 Ran Out of Food in the Last Year Not on file 06/01/2023 Comments No Sex and Gender Information Value [...] Info) Description 07/17/2025 8:40 AM EDT Follow-Up [facility] Pain [facility] [address] [place] [address] [place] [address] Alaina King CNP [address] [place] [address] documented as of this encounter Visit Diagnoses Diagnosis Complex regional pain syndrome type 1 of left lower extremity Other chronic postprocedural pain documented in this encounter Care Teams Financial Reporting Advisor Relationship Specialty Start Date End Date Yasir Ledesma MD [address] [facility] [place] [address] [address] PCP - General 05/26/22 Tyrel King MD [address] [place] Referring Physician Geriatric Medicine 11/03/22 documented as of this encounter
--- OUTSIDE RECORDS SUMMARY | 2025-05-04 12:41 | XMS_ITS | Clinical Summary ---
Author Organization [facility] Address [address] [place] [address] Care Team Providers Care Escrow Secretary Name Role Phone Unavailable Primary Care Provider [...] Encounters Date Type Department Care Team Description 03/28/2025 Orders Only [facility] [address] [place] [address] Sherry Aguilar MA 03/19/2025 4:00 PM EDT Office Visit [facility] [place] [address] [place] [address] Eduardo Freedman DO Well woman exam with routine gynecological exam; Breast cancer screening by mammogram 03/19/2025 Clinisync Result Encounter [facility] External Department Unsolicited Eduardo Freedman DO 03/19/2025 Bamboo flowsheet [facility] [address] [place] [address] Eduardo Freedman DO from Last 3 Months [...] EDT Office Visit [facility] OB [address] [phone] TanoEduardo raymundo, DO [address] [facility] [address] [place], [place] [phone] Health Maintenance Due Date Last Done Comments Mammogram 2021 Influenza Vaccine (#1) 2025 2, 07/11/2020, 07/03/2020, Additional history exists Cervical Cancer Screening 03/19/2030 HPV/Cotest 03/19/2030 Pap Smear 03/19/2030 03/19/2025 Procedures Procedure Name Priority Date/Time Associated Diagnosis Comments IGP,APTIMA HPV,AGE GDLN Routine 03/19/2025 6:06 AM EDT PAP SMEAR Routine 03/19/2025 12:00 AM EDT from Last 3 Months Results * IGP,APTIMA HPV,AGE GDLN (03/19/2025 6:06 AM EDT) AGE GDLN ACOG TESTING Note . TB Comment: TESTS RESULT FLAG UNITS REF RANGE LAB Clinician Provided Cytology Information Source.............Cervix No. of containers..01 ThinPrep Vial Age Cortney Turner... 31 FLAG LEGEND: L-Low Normal,H-High Normal,LL-Alert Low,HH-Alert High <-Panic Low,>-Panic High,A-Abnormal,AA-Critical Abnormal Performed at: 01 =[address] [facility] [address] Rosy Madrigal MD, IGP, APTIMA HPV, RFX 16/18,45 Note . [facility] Comment: TESTS RESULT FLAG UNITS REF RANGE LAB DIAGNOSIS: 02 NEGATIVE FOR INTRAEPITHELIAL LESION OR MALIGNANCY. Specimen adequacy: 02 Satisfactory for evaluation. No endocervical component is identified. Performed by: 02 Elizabeth Garza, Senior Technical Architect ([facility]) . 02 Note: Note 02 The Pap smear is a screening test designed to aid in the detection of premalignant and malignant conditions of the uterine cervix. It is not a diagnostic procedure and should not be used as the sole means of detecting cervical cancer. Both false-positive and false-negative reports do occur. Test Methodology: Note 02 This liquid based ThinPrep(R) pap test was screened with the use of an image guided system. HPV Genotype Reflex Note 02 Criteria not met, HPV Genotype not performed. FLAG LEGEND: L-Low Normal,H-High Normal,LL-Alert Low,HH-Alert High <-Panic Low,>-Panic High,A-Abnormal,AA-Critical Abnormal Performed at: [address] [address] Rosy Madrigal MD, HPV APTIMA Negative Negative [facility] Comment: This nucleic acid amplification test detects fourteen high- risk HPV types (16,18,31,33,35,39,45,51,52,56,58,59,66,68) without differentiation. Performed at: =[address] [id number] Medical Policy Specialist: Rosy Madrigal MD, Phone: [phone] Performed at: [address] [id number] Medical Policy Specialist: Rosy Madrigal MD, Phone: [phone] 03/19/2025 6:06 AM EDT 03/20/2025 2:20 PM EDT Narrative [facility] - 03/23/2025 4:09 PM EDT BRUSH-SPATULA CERVIX Eduardo Tano DO LAB BLOOD ORDERABLES Final Resul t Performing Organization Address [facility]/ZIP Co de Phone Number [facility] * Pap Smear (03/19/2025 12:00 AM EDT) Swab Cervical swab / Unknown Eduardo Tano DO LAB CYTOLOGY ORDERABLES Final Re sult Performing Organization Address City/[facility]/ZIP Co de Phone Number EXTERNAL LAB from Last 3 Months Insurance [employer]
--- OUTSIDE RECORDS SUMMARY | 2025-05-04 12:41 | XMS_ITS | Encounter Summary ---
Author Organization [facility] Address [address] [place] [address] Care Team Providers Care Budget Analyst Name Role Phone Yasir Ledesma MD Primary Care Provider [phone] Tyrel King MD Unavailable Reason for Visit * Reason Onset Date Comments Med Refill 12/15/2022 Encounter Details Date Type Department Care Team (Late st Contact Info) Description 12/15/2022 Refill [facility] Pain Medicine [address] [facility] [place] [address] Nohelia Reece, LAUREN [address] [place] [phone] Chronic pain syndrome Social History Tobacco Use [...] often do you attend chur ch or adventism services? More than 4 times per year 08/13/2022 Do you belong to any clubs o r organizations such as yazidism groups, unions, fraternal or athletic groups, or [...] Recorded Patient Health Questionnaire-2 Score 0 11/24/2022 [facility] of Occupat ional Health - Occupational Stress [...] Info) Description 07/17/2025 8:40 AM EDT Follow-Up [facility] Pain Medicine [address] [facility] [address] [place] [phone] Alaina King CNP [address] [facility] [place], [place] [phone] documented as of this encounter Visit Diagnoses Diagnosis Chronic pain syndrome documented in this encounter Care Teams Budget Analyst Relationship Specialty Start Date End Date Yaisr Ledesma MD [address] [facility] [place] [address] [address] PCP - General 05/26/22 Tyrel King MD [address] [place], [place] Referring Physician Geriatric Medicine 11/03/22 documented as of this encounter
--- OUTSIDE RECORDS SUMMARY | 2025-05-04 12:41 | XMS_ITS | Encounter Summary ---
Author Organization [facility] Address [address] [place] [address] Care Team Providers Care Tassel Clipper Name Role Phone Yasir Ledesma MD Primary Care Provider [phone] Tyrel King MD Unavailable Encounter Details Date Type Department Care Team (Late st Contact Info) Description 12/15/2022 Nurse Triage [facility] Pain Medicine [address] [place] [phone] Arjun Miner MD [address] [facility] [place], [place] [phone] Social History Tobacco Use Types Packs/Day Years [...] How often do you attend chur or caodaism services? More than 4 times per year [...] Recorded Patient Health Questionnaire-2 Score 0 11/24/2022 [facility] Occupat ional Health - Occupational Stress [...] slept in a fpc (including now)? No 08/13/2022 Comments No Sex [...] Moore Sent: 12/15/2022 7:44 AM EST To: [facility] Pain Medicine Clinical Support Pool [...] Info) Description 07/17/2025 8:40 AM EDT Follow-Up [facility] Pain Medicine [address] [place] [address] [place] [address] Alaina King CNP [address] [place] [address] documented as of this encounter Visit Diagnoses Not on filedocumented in this encounter Care Teams Tassel Clipper Relationship Specialty Start Date End Date Yasir Ledesma MD [address] [facility] [address] [address] PCP - General 05/26/22 Tyrel King MD [address] [place] Referring Physician Geriatric Medicine 11/03/22 documented as of this encounter
--- OUTSIDE RECORDS SUMMARY | 2025-05-04 12:41 | XMS_ITS | Clinical Summary ---
Author Organization [facility] Address [address] [place] [address] Care Team Providers Care Roller Painter Name Role Phone Yasir Ledesma MD Primary Care Provider [phone] Tyrel King MD Unavailable Allergies Active Allergy Reactions Criticality Noted Date Comments Prochlorperazine Hallucinations Low 02/11/2023 Meperidine Rash Low 08/01/2013 Other reaction(s): Unknown Ketorolac Shortness of breath,Rash High 11/22/2021 Medications cyanocobalamin, vitamin B-12, 1,000 mcg/mL kit Inject as directed every 30 (thirty) days. Active pantoprazole (ProtoNix) 40 mg EC tablet Take 40 mg by mouth in the morning and at bedtime. 10/23/19 15 Active diclofenac (Voltaren) 1 % topical gel Apply 1 application. topically if needed in the morning, at noon, in the evening, and at bedtime. TO LEFT KNEE 07/06/20 19 Active calcium carbonate 600 mg calcium (1,500 mg) tablet Take 300 mg by mouth in the morning. 08/21/20 18 Active ferrous sulfate 325 (65 Fe) MG tablet every 12 (twelve) hours. 08/21/20 18 Active multivitamin (Theragran-M) 9 mg iron-400 mcg tablet Take 1 tablet by mouth in the morning. Active ondansetron ODT (Zofran-ODT) 4 mg disintegrating tablet Take 4 mg by mouth every 8 (eight) hours if needed. 08/11/20 17 Active tiZANidine (Zanaflex) 4 mg tablet if needed. 08/19/20 12 Active acetaminophen (Tylenol) 500 mg tablet 1,000 mg every 4 (four) hours if needed. Active sucralfate (Carafate) 1 gram tablet Take 1 g by mouth if needed. Active promethazine (Phenergan) 25 mg tablet Take 25 mg by mouth every 6 (six) hours if needed for nausea or vomiting. Active amitriptyline (Elavil) 100 mg tablet 100 mg. 10/21/19 24 Active ibuprofen 400 mg tablet Take 400 mg by mouth. 07/17/20 24 Active CeleXA 10 mg tablet 1 (one) time each day at the same time. 12/01/19 25 Active fluconazole (Diflucan) 100 mg tablet 09/14/20 24 Active hyoscyamine (Anaspaz,Levsin) 0.125 mg tablet 1-2 tabs SL SL every 4 hrs PRN abd pain 09/26/20 24 Active lisinopril 10 mg tablet 1 (one) time each day at the same time. 12/01/19 25 Active semaglutide (Ozempic) 0.25 mg or 0.5 mg (2 mg/3 mL) pen injector 0.25 mg Subcutaneous weekly for 28 days 12/01/19 25 Active semaglutide, weight loss, (Wegovy) 0.25 mg/0.5 mL pen injector 0.25 mg Subcutaneous weely for 30 days 12/06/19 25 Active triamcinolone (Kenalog) 0.1 % cream 11/12/19 25 Active HYDROcodone-acetam inophen (Sidney) 7.5-325 mg tabletIndications: Chronic, continuous use of opioids,Complex regional pain syndrome type 1 of left lower extremity,Presence of neurostimulator Take 1 tablet by mouth every 8 (eight) hours if needed for severe pain (8-10 pain score). Do not start before May 02, 2025. 90 tablet 05/02/20 25 025 Active pregabalin (Lyrica) 50 mg capsuleIndications :Complex regional pain syndrome type 1 of left lower extremity,Other chronic postprocedural pain Take 2 capsules (100 mg) by mouth two times daily. Do not start before May 02, 2025. 120 capsule 1 05/02/20 25 025 Active HYDROcodone-acetam inophen (Sidney) 7.5-325 mg tabletIndications: Chronic, continuous use of opioids,Complex regional pain syndrome type 1 of left lower extremity,Presence of neurostimulator Take 1 tablet by mouth every 8 (eight) hours if needed for severe pain (8-10 pain score). Do not start before April 04, 2025. 90 tablet 04/04/20 025 Discontin ued(Reord er) pregabalin (Lyrica) 50 mg capsuleIndications :Complex regional pain syndrome type 1 of left lower extremity,Other chronic postprocedural pain Take 2 capsules (100 mg) by mouth two times daily. Do not start before April 04, 2025. 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 Easy bruising 06/15/2018 S/P gastric bypass 06/15/2018 Other microscopic hematuria 02/25/2018 Kidney stone 02/25/2018 Hematuria 12/29/2017 Overview (07/12/2022): Passed kidney stone 3 mm 2013 Passed stone 2016 Right intermittent flank pain associated with dysuria [...] Encounters Date Type Department Care Team Description 04/24/2025 3:20 PM EDT Follow-Up [facility] [address] [place] [address] [place] [phone] Aliana King CNP Complex regional pain syndrome type 1 of left lower extremity (Primary Dx); Neuralgia and neuritis; Presence of neurostimulator; Other chronic postprocedural pain; Chronic, continuous use of opioids 03/29/2025 [facility] [address] [place] [address] [place] [phone] Alaina King CNP Complex regional pain syndrome type 1 of left lower extremity; Other chronic postprocedural pain 03/29/2025 [facility] [address] [place] [address] [place] [phone] Nohelia Reece CNP Chronic, continuous use of opioids; Complex regional pain syndrome type 1 of left lower extremity; Presence of neurostimulator 02/26/2025 Refill [facility] [address] [place] [address] [place] [phone] Nohelia Reece CNP Chronic, continuous use of opioids; Complex regional pain syndrome type 1 of left lower extremity; Presence of neurostimulator from Last 3 Months Family History Medical History Relation Name Comments Cancer Father Tye Main Kidney cancer Maternal Grandmother Brain cancer Mother Prostate cancer Paternal Grandfather Breast cancer Sister 1 Cancer Sister 2 January [facility] Relation Name Status Comments Father Tye Main Maternal Grandmother Mother Paternal Grandfather Sister 1 Sister 2 January [facility] Social History Tobacco Use Types Packs/Day Years Used Date Smoking Tobacco: Former Cigarettes Q uit: 12/18/1997 Passive Smoke Exposure: Current Smokeless Tobacco: Never Tobacco Cessation:Counseling Given: Not Answered Alcohol Use Standard Drinks/Week Comments Never 0 (1 standard drink = 0.6 oz pur e alcohol) [facility] Utilities Answer Date Recorded In the past 12 months has [employer], gas, oil, or water [employer] threatened to shut off services in your [...] How often do you attend chur or anabaptism services? More than 4 times per year 08/13/2022 Do you belong to any clubs o r organizations such as mu-ism groups, unions, fraternal or athletic groups, or [...] Recorded Patient Health Questionnaire-2 Score 0 04/24/2025 [facility] of Occupat ional Health - Occupational [...] any time in the past 12 m [facility], were you homeless or living in a correction (including now)? No 04/24/2025 Hunger Vital Sign Answer Date Recorded Within the past 12 months, y ou worried that your food would run out before you got the money to buy more. Never true 04/24/20 Ran Out of Food in the Last [...] Pulse 95 04/24/2025 3:23 PM EDT Temperature 36.2 C (97.2 F) 04/28/2023 11:20 AM EDT Simultaneous filing. User may not have seen previous data. Respiratory Rate 20 12/05/2024 11:3 0 AM EST Oxygen Saturation 100% 04/24/2025 3:2 3 PM EDT Inhaled Oxygen Concentration - - Weight 68.9 kg (152 lb) 04/24/2025 3:23 PM EDT Height 167.6 cm (5' 6 ) 04/24/2025 3:23 PM EDT Body Mass Index 24.53 04/24/2025 3:23 PM EDT Plan of Treatment Upcoming Encounters Date Type Department Care Team (Late st Contact Info) Description 07/17/2025 8:40 AM EDT Follow-Up [facility] Pain Medicine [address] [place] [address] [place] [address] Alaina King CNP [address] [place] [address] [place] [address] Health Maintenance Due Date Last Done Comments Varicella Vaccines (1 of 2 - 13+ 2-dose series) 1994 Hepatitis B Vaccines (1 of 3 - 19+ 3-dose series) 2000 HPV/Cotest 12/31/2011 Adult Tetanus 07/10/2021 07/10/2011 Mammogram 2021 COVID-19 Vaccine ( season) 2024 07/29/2022, 10/08/2021, 01/30/2021, Additional history exists Influenza Vaccine (#1) 2025 , 07/11/2020, 07/03/2020, Additional history exists Depression Screening 04/24/2026 04/24/2025 Cervical Cancer Screening 03/19/2028 Pap Smear 03/19/2028 03/19/2025 Zoster Vaccines (1 of 2) 12/31/2031 Pneumococcal [...] this topic Medical Devices Implanted Type Area Director Of Services Device Identifier Shelf Expiration Date Model / Serial / Lot Trial Lead Kit-02/11/2023 Implanted:02/11 by Arjun Miner MD (Quantity not on file) Left: Back [id number] 07/26/2024 / [id number] / Slim Tip Drg Lead-02/11/2023 Implanted:02/11 by Arjun Miner MD (Quantity not on file) Left: Back [id number] 05/25/2024 / [id number] / Slim Tip Drg-02/11/2023 Implanted:02/11 by Arjun Miner MD (Quantity not on file) Back [id number] 05/25/2024 / [id number] / Jackson Drg Ext Pulse Generator 2 Port Header-02/11/2023 Implanted:02/11 by Arjun Miner MD (Quantity not on file) Left: Back [id number] 04/07/2024 / [id number] / Slimtip Drg Implanted:Qty: 1 on 04/28/2023 by Arjun Miner MD at [facility] N/A: Back Xooker [id number] 10/19/2024 [id number] A / [id number] / Proclaim Drg Implanted:Qty: 1 on 04/28/2023 by Arjun Miner MD at [facility] N/A: Back Xooker [id number] 11/25/2024 [id number] / [id number] / Description:Part of Build Slimtip Drg Implanted:Qty: 1 on 04/28/2023 by Arjun Miner MD at [facility] N/A: Back Xooker [id number] 02/14/2025 [id number] / [id number] / Description:Part of Build Explanted Type Area Director Of Services Device Identifier Shelf Expiration Date Model / Serial / Lot Slimtip Drg Explanted:Qty: 1 on 04/28/2023 by Arjun Miner MD at [facility] N/A: Back Xooker [id number] 10/19/2024 [id number] A / [id number] / Description:WAS IMPLANTED AN D EXPLANTED DURING CASE [place] [address] [place] [address] [employer] [facility] Care Teams Roller Painter Relationship Specialty Start Date End Date Yasir Ledesma MD [address] [facility] [address] [address] PCP - General 05/26/22 Tyrel King MD [address] [place], [place] Referring Physician Geriatric Medicine 11/03/22
--- OUTSIDE RECORDS SUMMARY | 2025-05-04 12:41 | XMS_ITS | Encounter Summary ---
Author Organization [facility] Address [address] [facility] [place] [address] Care Team Providers Care Line Tender Name Role Phone Yasir Ledesma MD Primary Care Provider [phone] Tyrel King MD Unavailable Reason for Visit * Reason Onset Date Comments Med Refill 04/16/2023 Encounter Details Date Type Department Care Team (Late st Contact Info) Description 04/16/2023 Refill [facility] Pain Medicine [address] [place] [address] Nohelia Reece, LAUREN [address] [place] [phone] Complex regional pain syndrome type 1 of [...] How often do you attend chur or yazidi services? More than 4 times per year 08/13/2022 Do you belong to any clubs o r organizations such as judaism groups, unions, fraternal or athletic groups, or [...] Recorded Patient Health Questionnaire-2 Score 0 03/17/2023 [facility] - Occupational Stress Questionnaire Answer [...] place to sleep or slept in a residential (including now)? No 08/13/2022 Comments No Sex [...] Info) Description 07/17/2025 8:40 AM EDT Follow-Up [facility] Pain Medicine [address] [place] [address] [place] [phone] Alaina King CNP [address] [facility] [place] [phone] documented as of this encounter Visit Diagnoses Diagnosis Complex regional pain syndrome type 1 of left lower extremity documented in this encounter Care Teams Line Tender Relationship Specialty Start Date End Date Yasir Ledesma MD [address] [facility] [address] [address] PCP - General 05/26/22 Tyrel King MD [address] [place], [place] Referring Physician Geriatric Medicine 11/03/22 documented as of this encounter
--- OUTSIDE RECORDS SUMMARY | 2025-05-04 12:41 | XMS_ITS | Encounter Summary ---
Author Organization [facility] Address [address] [facility] [place] [address] Care Team Providers Care Strategic Account Executive Name Role Phone Yasir Ledesma MD Primary Care Provider [phone] Tyrel King MD Unavailable Reason for Visit * Reason Onset Date Comments Med Refill 09/11/2024 Encounter Details Date Type Department Care Team (Late st Contact Info) Description 09/11/2024 Refill [facility] [address] [place] [address] Nohelia Reece, REFUSE LABORER [address] [place] [phone] Complex regional pain syndrome type 1 of [...] often do you attend chur ch or sabianist services? More than 4 times per year 08/13/2022 Do you belong to any clubs o r organizations such as congregation groups, unions, fraternal or athletic groups, or [...] Recorded Patient Health Questionnaire-2 Score 0 07/24/2024 [facility] - Occupational Stress Questionnaire Answer Date [...] place to sleep or slept in a chcf (including now)? No 07/19/2024 Hunger Vital Sign Answer Date Recorded Within the past 12 months, y ou worried that your food would run out before you got the money to buy more. Never true 07/19/20 24 Ran Out of Food in the Last Year Not on file 07/19/2024 Comments No Sex and Gender Information Value [...] Info) Description 07/17/2025 8:40 AM EDT Follow-Up [facility] [address] [place] [phone] Alaina King CNP [address] [place] [address] documented as of this encounter Visit Diagnoses Diagnosis Complex regional pain syndrome type 1 of left lower extremity Other chronic postprocedural pain documented in this encounter Care Teams Strategic Account Executive Relationship Specialty Start Date End Date Yasir eLdesma MD [address] [place] [place] [address] PCP - General 05/26/22 Tyrel King MD [address] [place] Agu[place] Referring Physician Geriatric Medicine 11/03/22 documented as of this encounter
--- OUTSIDE RECORDS SUMMARY | 2025-05-04 12:41 | XMS_ITS | Encounter Summary ---
Author Organization [facility] Address [address] [facility] [place] [address] Care Team Providers Care Rinkman Name Role Phone Yasir Ledesma MD Primary Care Provider [phone] Tyrel King MD Unavailable Reason for Visit * Reason Onset Date Comments Med Refill 04/15/2023 Encounter Details Date Type Department Care Team (Late st Contact Info) Description 04/15/2023 Refill [facility] Pain Medicine [address] [place] [address] Nohelia Reece, LAUREN [address] [place] [phone] Complex regional pain syndrome type 1 of [...] How often do you attend chur or restorationism services? More than 4 times [...] Recorded Patient Health Questionnaire-2 Score 0 03/17/2023 [facility] - Occupational Stress Questionnaire Answer Date [...] place to sleep or slept in a half-way (including now)? No 08/13/2022 Comments No Sex [...] [facility] [address] [place] [address] [place] [phone] Alaina King CNP [address] [facility] [place] [id number] documented as of this encounter Visit Diagnoses Diagnosis Complex regional pain syndrome type 1 of left lower extremity documented in this encounter Care Teams Rinkman Relationship Specialty Start Date End Date Yasir Ledesma MD [address] [facility] [address] [address] PCP - General 05/26/22 Tyrel King MD [address] [place], [place] Referring Physician Geriatric Medicine 11/03/22 documented as of this encounter
--- OUTSIDE RECORDS SUMMARY | 2025-05-04 12:41 | XMS_ITS | Encounter Summary ---
Author Organization [facility] Address [address] [facility] [place] [address] Care Team Providers Care Recycling Or Rubbish Collector Name Role Phone Yasir Ledesma MD Primary Care Provider [phone] Tyrel King MD Unavailable Reason for Visit * Reason Onset Date Comments Med Refill 03/02/2023 Encounter Details Date Type Department Care Team (Late st Contact Info) Description 03/02/2023 Refill [facility] [address] [place] [address] Nohelia Reece, LAUREN [address] [place] [address] Complex regional pain syndrome type [...] How often do you attend chur or adventist services? More than 4 times per year 08/13/2022 Do you belong to any clubs o r organizations such as jainism groups, unions, fraternal or athletic groups, or [...] Recorded Patient Health Questionnaire-2 Score 0 01/08/2023 [facility] - Occupational Stress Questionnaire [...] Info) Description 07/17/2025 8:40 AM EDT Follow-Up [facility] [address] [place] [address] [place] [phone] Alaina King CNP [address] [facility] [place] [id number] documented as of this encounter Visit Diagnoses Diagnosis Complex regional pain syndrome type 1 of left lower extremity documented in this encounter Care Teams Recycling Or Rubbish Collector Relationship Specialty Start Date End Date Yasir Ledesma MD [address] [facility] [place] [address] [address] PCP - General 05/26/22 Tyrel King MD [address] [place], [place] Referring Physician Geriatric Medicine 11/03/22 documented as of this encounter
--- OUTSIDE RECORDS SUMMARY | 2025-05-04 12:42 | XMS_ITS | Encounter Summary ---
Author Organization [facility] Address [address] [place] [address] Care Team Providers Care Manager Costing Name Role Phone Yasir Ledesma MD Primary Care Provider [phone] Tyrel King MD Unavailable Reason for Visit * Reason Onset Date Comments Med Refill 10/19/2023 Encounter Details Date Type Department Care Team (Late st Contact Info) Description 10/19/2023 Refill [facility] Pain [facility] [address] [place] [address] Arjun Miner MD [address] [facility] [place], [place] [phone] Complex regional pain syndrome type 1 of [...] How often do you attend chur or mu-ism services? More than 4 times per year 08/13/2022 Do you belong to any clubs o r organizations such as spiritism groups, unions, fraternal or athletic groups, or [...] Recorded Patient Health Questionnaire-2 Score 0 08/19/2023 [facility] [place] [facility] Occupat ional Health - Occupational Stress [...] exercise at this level? 20 min 08/13/2022 [place] Safety & Environment Answer Date Rec orded Within the last year, have y ou been afraid of your partner or ex-partner? No 08/19/2023 Within the last year, have y ou been humiliated or emotionally abused in other ways by your partner or ex-partner? No 08/19/2023 Within the last year, have y ou been kicked, hit, slapped, or otherwise physically hurt by your partner or ex-partner? No 08/19/2023 Within the last year, have y ou been raped or forced to have any kind of sexual activity by your partner or ex-partner? No 08/19/2023 In the past year have you be en physically or sexually abused? Unrecognized value 08/19/2023 Transportation Answer Date Recorded In the [...] place to sleep or slept in a halfway (including now)? No 06/01/2023 Hunger Vital Sign [...] Info) Description 07/17/2025 8:40 AM EDT Follow-Up [facility] [address] [place] [address] [place] [phone] Alaina King CNP [address] [place] [address] documented as of this encounter Visit Diagnoses Diagnosis Complex regional pain syndrome type 1 of left lower extremity Other chronic postprocedural pain documented in this encounter Care Teams Manager Costing Relationship Specialty Start Date End Date Yasir Ledesma MD [address] [facility] [address] [address] PCP - General 05/26/22 Tyrel King MD [address] [place] Referring Physician Geriatric Medicine 11/03/22 documented as of this encounter
--- OUTSIDE RECORDS SUMMARY | 2025-05-04 12:42 | XMS_ITS | Clinical Summary ---
Author Organization [employer] tem Address [id number] [address] [place] [address] Care Team Providers Care Film Splicer Name Role Phone Yasir Ledesma MD Primary Care Provider [phone] Allergies Active Allergy Reactions Criticality Noted Date Comments Prochlorperazine 08/14/2023 Meperidine Rash Low 04/09/2017 Desonide 01/08/2021 Ketorolac Tromethamine Rash Low 04/09/2017 Medications seftbprn-[id number] alcium &mins (THERAGRAN-M) 9 mg iron-400 mcg [...] up to 10 doses. 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 Not on file Not [...] Td or Tdap) 07/10/2021 07/10/2011 COVID-19 Vaccine (2023-2 5 season) 2024 07/29/2022, 10/08/2021, 01/30/2021, Additional history exists Influenza Vaccine 06/11/2025 07/29/2022, , 07/03/2020, Additional history exists Adult BMI Screening 01/11/2026 01/11/2025 Tobacco Screening 01/11/2026 01/11/2025 Medical Devices Not on file Insurance [employer] Advance Directives * Full Code (Latest Code Status on File) Date Activated Date Inactivated Comments 01/11/2025 2:55 PM 01/11/2025 7:41 PM Care Teams Film Splicer Relationship Specialty Start Date End Date Yasir Ledesma MD PCP - General 01/11/25
--- OUTSIDE RECORDS SUMMARY | 2025-05-04 12:42 | XMS_ITS | Encounter Summary ---
Author Organization [facility] Address [address] [place] [address] Care Team Providers Care Clinical Data Management Manager Name Role Phone Yasir Ledesma MD Primary Care Provider [phone] Tyrel King MD Unavailable Reason for Visit * Reason Onset Date Comments Med Refill 06/08/2023 Encounter Details Date Type Department Care Team (Late st Contact Info) Description 06/08/2023 Refill [facility] Pain [facility] [facility] [place] [phone] Jess Stewart MD Complex regional pain syndrome [...] any clubs o r organizations such as moravian groups, unions, fraternal or athletic groups, or [...] Recorded Patient Health Questionnaire-2 Score 0 06/01/2023 [facility] ional Health - Occupational Stress [...] place to sleep or slept in a mcc (including now)? No 06/01/2023 Hunger Vital Sign [...] Info) Description 07/17/2025 8:40 AM EDT Follow-Up [facility] [address] [place] [address] [place] [address] Alaina King CNP [address] [place] [address] documented as of this encounter Visit Diagnoses Diagnosis Complex regional pain syndrome type 1 of left lower extremity documented in this encounter Care Teams Clinical Data Management Manager Relationship Specialty Start Date End Date Yasir Ledesma MD [address] [facility] [address] [address] PCP - General 05/26/22 Tyrel King MD [address] [place], [place] Referring Physician Geriatric Medicine 11/03/22 documented as of this encounter
--- OUTSIDE RECORDS SUMMARY | 2025-05-04 12:42 | XMS_ITS | Encounter Summary ---
Author Organization [facility] Address [address] [place] [address] Care Team Providers Care Green Chain Worker Name Role Phone Unavailable Primary Care Provider Unavailabl e Encounter Details Date Type Department Care Team (Late st Contact Info) Description 03/28/2025 Orders Only [facility] [address] [phone] Sherry Aguilar [facility] [place] [address] Social History Tobacco Use Types Packs/Day Years [...] 03/21/2026 9:00 AM EDT Office Visit [facility] [place] [address] [place] [address] Eduardo Freedman [place] [facility] [place] [address] documented as of this encounter Procedures Procedure Name Priority Date/Time Associated Diagnosis Comments PAP SMEAR Routine 03/19/2025 12:00 AM EDT documented in this encounter Results * Pap Smear (03/19/2025 12:00 AM EDT) Swab Cervical swab / Unknown us Eduardo Freedman DO LAB CYTOLOGY ORDERABLES Final Re sult EXTERNAL LAB documented in this encounter Visit Diagnoses Not on filedocumented in this encounter
--- OUTSIDE RECORDS SUMMARY | 2025-05-04 12:42 | XMS_ITS | Encounter Summary ---
Author Organization [facility] Address [address] [place] [address] Care Team Providers Care Hedis Nurse Name Role Phone Yasir Ledesma MD Primary Care Provider [phone] Tyrel King MD Unavailable Reason for Visit * Reason Onset Date Comments Med Refill 10/15/2023 Encounter Details Date Type Department Care Team (Late st Contact Info) Description 10/15/2023 Refill [facility] Pain Medicine [address] [place] [address] Arjun Miner MD [address] [facility], [address] [place], [place] [phone] Complex regional pain syndrome type 1 of [...] How often do you attend chur or hoahaoism services? More than 4 times per year 08/13/2022 Do you belong to any clubs o r organizations such as zoroastrianism groups, unions, fraternal or athletic groups, or [...] Recorded Patient Health Questionnaire-2 Score 0 08/19/[address] [facility] [place] of Occupat ional Health - Occupational Stress [...] exercise at this level? 20 min 08/13/2022 [place] Safety & Environment Answer Date Rec orded [...] [facility] [address] [place] [address] [place] [address] Alaina King CNP [address] [place] [address] documented as of this encounter Visit Diagnoses Diagnosis Complex regional pain syndrome type 1 of left lower extremity Other chronic postprocedural pain documented in this encounter Care Teams Hedis Nurse Relationship Specialty Start Date End Date Yasir Ledesma MD [address] [facility] [place] [address] [address] PCP - General 05/26/22 Tyrel King MD [address] [place], [place] Referring Physician Geriatric Medicine 11/03/22 documented as of this encounter
--- OUTSIDE RECORDS SUMMARY | 2025-05-04 12:42 | XMS_ITS | Patient Health Record ---
Author Organization [facility] in [place] Address [address] [place] [address] Care Team Providers Care Mailer Name Role Phone Malachi Ledesma Primary Care Provider Kavya Nelson [phone] Allergies Allergen (clinical drug ingredient) Drug/Non Drug Allergy documented on EMR Reaction Allergy Type Onset Date Status meperidine Demerol Unknown Drug Allergy Active Compazine hallucinating Drug Allergy Act zohaib ketorolac Ketorolac Unknown Drug Allergy Active Results Component Value Reference Range Notes AMYLASE Reviewed date:06/20/2024 10:16:56 PM Interpretation: Performing Lab: Notes/Report: [facility] , Amylase 62 25-115 U/L Performing Lab: see note ML - [facility] LB CBC AUTO DIFF Reviewed date:06/20/2024 10:16:56 PM Interpretation: Performing Lab: Notes/Report: [facility] , White Blood Count 7.2 4.0-11.0 [...] 3/uL Performing Lab: see note ML - [facility] LB LIPASE Reviewed date:06/20/2024 10:16:56 PM Interpretation: Performing Lab: Notes/Report: [facility] , Lipase 76.0 16.0-77.0 U/L Performing Lab: see note ML - [facility] LB PROF 14(COMP METB) Reviewed date:06/20/2024 10:16:56 PM Interpretation: Performing Lab: Notes/Report: [facility] , Sodium 141 136-145 mmol/L Potassium [...] Performing Lab: see note ML - [facility] LB UA (URINALYSIS), COMPLETE (8 1000) - IN [...] 03:11:03 PM Interpretation: Performing Lab: Notes/Report: [facility] , Sodium 141 136-145 mmol/L Potassium [...] Performing Lab: see note ML - [facility] UA RANDOM W or MICROSCOPIC Reviewed date:06/20/2024 10:16:56 PM Interpretation: Performing Lab: Notes/Report: [facility] , Color Urine DK YELLOW YELLOW Clarity Urine CLOUDY CLEAR Specific Solomon Urine >=1.030 1.005-1.025 pH Urine 6.0 5.0-9.0 [...] #/LPF Performing Lab: see note ML - [facility] LB Urine Culture, Routine Reviewed date:06/22/2024 09:22:23 PM Interpretation: Performing Lab: Notes/Report: [facility] , Urine Culture, Routine See Below For Report Urine Culture, Routine Urine Culture, Routine Mixed urogenital cordell Urine Culture, Routine Urine Culture, Routine Less than 10,000 colonies/mL Urine Culture, Routine Urine Culture, Routine Performed at: - [facility] [place] Urine Culture, Routine Urine Culture, Routine [address] [place], [place] [id number] Urine Culture, Routine Urine Culture, Routine Giver: Bryce Queen PhD, Phone: [phone] Urine Culture, Routine Performing Lab: see note LC - [facility] LB SEE REPORT - Diesel Pile Driver Operator Id information not found for OBX-specific event producer legend DRUG SCREEN RAPID (URINE) Reviewed date:07/09/2024 11:07:46 AM Interpretation: Performing Lab: Notes/Report: [facility] , Cannabinoid Screen Urine NEGATIVE NEGATIVE [...] Antidepressants): 300 ng/mL Performing Lab: see note ML - [facility] LB Urine Culture, Routine Reviewed date:07/09/2024 11:07:46 AM Interpretation: Performing Lab: Notes/Report: [facility] , Urine Culture, Routine See Below For Report Urine Culture, Routine Urine Culture, Routine Mixed urogenital cordell Urine Culture, Routine Urine Culture, Routine 10,000-25,000 col rhianna forming units per mL Urine Culture, Routine Urine Culture, Routine [facility] Urine Culture, Routine Urine Culture, Routine [address] [place] [phone] Urine Culture, Routine Urine Culture, Routine Giver: Bryce Queen PhD, Phone: [phone] Urine Culture, Routine Performing Lab: see note LC - [facility] LB SEE REPORT - Diesel Pile Driver Operator Id information not found for OBX-specific event producer legend CBC AUTO DIFF Reviewed date:07/07/2024 08:02:43 AM Interpretation: Performing Lab: Notes/Report: [facility] , White Blood Count 3.3 [...] Performing Lab: see note ML - [facility] LB PROF 14(COMP METB) Reviewed date:07/07/2024 08:02:43 AM Interpretation: Performing Lab: Notes/Report: [facility] , Sodium 136 136-145 mmol/L Potassium [...] Performing Lab: see note ML - [facility] Surgical Pathology ([facility]) Reviewed date:08/10/2024 09:59:46 PM Interpretation: Performing Lab: Notes/Report: Path Number: [id number] -- Diagnosis -- RIGHT PAROTID GLAND, 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 ryan Thalia [facility]/kb2:07/17/2024 Microscopic Description The circumscribed tumor nodule contains nests and cords of benign epithelial cells embedded in chondromyxoid stroma, consistent with pleomorphic adenoma. The surrounding parotid gland tissue is unremarkable. A small, benign lymph node is present in the fibroadipose tissue surrounding the parotid gland. Processing Lab: [address] [address] Interpretation Performed at [address] [address] SURGICAL PATHOLOGY CONSULTATION Patient Name: KRISTINE MOORE [facility] Rec: [id number] [facility] [employer] [facility] ANATOMIC PATHOLOGY [address] [facility]. [place], [place] [address] AMYLASE Reviewed date:08/16/2024 08:58:12 PM Interpretation: Performing Lab: Notes/Report: [facility] , Amylase 50 25-115 U/L Performing Lab: see note ML - [facility] LB LIPASE Reviewed date:08/16/2024 08:58:12 PM Interpretation: Performing Lab: Notes/Report: [facility] , Lipase 66.0 16.0-77.0 U/L Performing Lab: see note ML - [facility] LB MAGNESIUM Reviewed date:08/16/2024 08:58:12 PM Interpretation: Performing Lab: Notes/Report: [facility] , Magnesium 2.0 1.8-2.4 mg/dL Performing Lab: see note ML - [facility] LB UA (CLEAN or CATCH) CLUB LICENSEE or M ICRO IF IND. Reviewed date:08/16/2024 08:58:12 PM Interpretation: Performing Lab: Notes/Report: [facility] , Color Urine LT. YELLOW YELLOW Clarity Urine SL CLOUDY CLEAR Specific Solomon Urine 1.020 1.005-1.025 pH Urine 7.5 5.0-9.0 Protein Urine NEGATIVE NEG/TRACE mg/dL Glucose Urine UA NEGATIVE NEGATIVE mg/dL Bilirubin Urine NEGATIVE NEGATIVE Ketones Urine NEGATIVE NEGATIVE mg/dL Blood Urine LARGE NEGATIVE Nitrite Urine NEGATIVE NEGATIVE Urobilinogen Urine 1.0 0.2-1.0 EU/dL Leukocyte Esterase Urine LARGE NEGATIVE Urine Microscopic Indicated YES Performing Lab: see note ML - [facility] LB Blood Culture 1 Reviewed date:08/21/2024 06:30:39 PM Interpretation: Performing Lab: Notes/Report: [facility] , Blood Culture 1 See Below For Report Blood Culture 1 NG5D NO GROWTH AT 5 DAYS. Performing Lab: see note ML - [facility] LB Blood Culture 2 Reviewed date:08/21/2024 06:30:39 PM Interpretation: Performing Lab: Notes/Report: [facility] , Blood Culture 2 See Below For Report Blood Culture 2 NG5D NO GROWTH AT 5 DAYS. Performing Lab: see note ML - [facility] CT abdomen pelvis wo con Reviewed date:08/16/2024 08:58:12 PM Interpretation: Performing Lab: Notes/Report: Source Facility: [facility] [place] [address] CT Scan Report Signed Patient: KRISTINE MOORE MR#: [id number] : 1980 Acct:[id number] Age/Sex: 43 / F ADM Date: 08/16/24 Loc: ER Attending Dr: Ordering Physician: Mouna Dunham D.O. Date of Service: 08/16/24 Procedure(s): CT abdomen pelvis wo con Accession Number(s): [id number] cc: Yasir Ledesma M.D. [place] [address] Patient Name: KRISTINE MOORE MRN: [id number] date: 1980 Sex: F Assigned Patient Location: ER Current Patient Location: ER Accession/Order Number: [id number] Exam Date: 08/16/2024 10:21 Report Date: 08/16/2024 [...] Signed By: 08/16/24 1050 DD/ 1048 TD/TT: Track Fitter: [place] [address] CT Scan Report Signed Patient: KAREN MOORE MR#: [id number] : 1980 Acct:[id number] Age/Sex: 43 / F ADM Date: 08/16/24 Loc: ER Attending Dr: Ordering Physician: Mouna Dunham D.O. Date of Service: 08/16/24 Procedure(s): CT abdomen pelvis wo con Accession Number(s): [id number] cc: Yasir Ledesma M.D. [place] [id number] Patient Name: KRISTINE MOORE MRN: [id number] date: 1980 Sex: F Assigned Patient Location: ER Current Patient Location: ER Accession/Order Numb er: [id number] Exam Date: 10:21 Report Date: 08/16/2024 10:48 [...] Signed By: 08/16/24 1050 DD/ 1048 TD/TT: Track Fitter: CBC AUTO DIFF Reviewed date:08/17/2024 07:15:36 PM Interpretation: Performing Lab: Notes/Report: [facility] , White Blood Count 3.3 4.0-11.0 [...] 3/uL Performing Lab: see note ML - [facility] LB PROF CHEM 8 (BAS METB) Reviewed date:08/17/2024 07:15:36 PM Interpretation: Performing Lab: Notes/Report: [facility] , Sodium 142 136-145 mmol/L Potassium [...] mg/dL Performing Lab: see note ML - [facility] LB CBC AUTO DIFF Reviewed date:08/31/2024 08:03:35 PM Interpretation: Performing Lab: Notes/Report: [facility] , White Blood Count 5.8 4.0-11.0 [...] Performing Lab: see note ML - [facility] LB LIPASE Reviewed date:08/31/2024 08:03:35 PM Interpretation: Performing Lab: Notes/Report: [facility] , Lipase 58.0 16.0-77.0 U/L Performing Lab: see note ML - [facility] LB PROF 14(COMP METB) Reviewed date:08/31/2024 08:03:35 PM Interpretation: Performing Lab: Notes/Report: [facility] , Sodium 141 136-145 mmol/L Potassium [...] 1.0 Performing Lab: see note ML - [facility] LB UA RANDOM W or MICROSCOPIC Reviewed date:08/31/2024 08:03:35 PM Interpretation: Performing Lab: Notes/Report: [facility] , Color Urine YELLOW YELLOW Clarity Urine CLEAR CLEAR Specific Solomon Urine 1.025 1.005-1.025 pH Urine 6.0 5.0-9.0 [...] NO Performing Lab: see note ML - [facility] LB CBC AUTO DIFF Reviewed date:09/28/2024 02:46:50 PM Interpretation: Performing Lab: Notes/Report: [facility] , White Blood Count 6.9 4.0-11.0 [...] 0.00-0.03 10 3/uL Performing Lab: see note - [facility] PROF CHEM 8 (BAS METB) Reviewed date:09/28/2024 02:46:50 PM Interpretation: Performing Lab: Notes/Report: [facility] , Sodium 141 136-145 mmol/L Potassium [...] 8.8 8.5-10.1 mg/dL Performing Lab: see note - [facility] UA RANDOM W or MICROSCOPIC Reviewed date:09/28/2024 02:46:50 PM Interpretation: Performing Lab: Notes/Report: [facility] , Color Urine YELLOW YELLOW Clarity Urine CLEAR CLEAR Specific Solomon Urine 1.020 1.005-1.025 pH Urine 7.5 5.0-9.0 [...] YES Performing Lab: see note ML - [facility] LB HCG Qualitative Urine Reviewed date:09/28/2024 02:46:50 PM Interpretation: Performing Lab: Notes/Report: [facility] , HCG Qualitative Urine* NEGATIVE NEGATIVE Performing Lab: see note ML - [facility] LB Urine Culture, Routine Reviewed date:10/01/2024 02:08:22 PM Interpretation: Performing Lab: Notes/Report: [facility] , Urine Culture, Routine See Below For Report Urine Culture, Routine Urine Culture, Routine Mixed urogenital cordell Urine Culture, Routine Urine Culture, Routine 10,000-25,000 col rhianna forming units per mL Urine Culture, Routine Urine Culture, Routine Performed at: [facility] Urine Culture, Routine Urine Culture, Routine [address] [place] [phone] Urine Culture, Routine Urine Culture, Routine Giver: Bryce Queen PhD, Phone: [phone] Urine Culture, Routine Performing Lab: see note - [facility] LB SEE REPORT - Diesel Pile Driver Operator Id information not found for OBX-specific event producer legend CT abdomen pelvis w con Reviewed date:09/28/2024 02:46:50 PM Interpretation: Performing Lab: Notes/Report: Source Facility: [place] [address] CT Scan Report Signed Patient: KRISTINE MOORE MR#: [id number] : 1980 Acct:[id number] Age/Sex: 43 / F ADM Date: 09/28/24 Loc: ER Attending Dr: Ordering Physician: Genna Heaton M.D. Date of Service: 09/28/24 Procedure(s): CT abdomen pelvis w con Accession Number(s): [id number] cc: Yasir Ledesma M.D. [place] [id number] Patient Name: KRISTINE MOORE MRN: [id number] date: 1980 Sex: F Assigned Patient Location: ER Current Patient Location: ER Accession/Order Number: [id number] Exam Date: 09/28/2024 01:33 Report Date: 09/28/2024 [...] M.D. Signed By: 09/28/24227 DD/ 5 TD/TT: Track Fitter: [place] [address] CT Scan Report Signed Patient: KAREN MOORE MR#: [id number] : 1980 Acct:[id number] Age/Sex: 43 / F ADM Date: 09/28/24 Loc: ER Attending Dr: Ordering Physician: Genna Heaton M.D. Date of Service: 09/28/24 Procedure(s): CT abdomen pelvis w con Accession Number(s): [id number] cc: Yasir Ledesma M.D. The [place] [address] Patient Name: KRISTINE MOORE MRN: [id number] date: 1980 Sex: F Assigned Patient Location: ER Current Patient Location: ER Accession/Order Numb er: [id number] Exam Date: 01:33 Report Date: 09/28/2024 02:26 [...] M.D. Signed By: 09/28/24227 DD/ 5 TD/TT: Track Fitter: SUMI LOPEZ DIFF Reviewed date:12/14/2024 08:43:40 PM Interpretation: Performing Lab: Notes/Report: [facility] , White Blood Count 4.8 4.0-11.0 [...] Performing Lab: see note ML - [facility] LB IGP,Aptima HPV,Age Gdln Reviewed date:03/25/2025 12:03:27 PM Interpretation: Performing Lab: Notes/Report: BRUSH-SPATULA CERVIX [facility] , Age Gdln ACOG Testing Note . TESTS RESULT FLAG UNITS REF RANGE LAB Clinician Provided Cytology Information Source.............Cer vix No. of containers..01 ThinPrep Vial Age Cortney WARNER Yue... FLAG LEGEND: L-Low Normal,H-High Normal,LL-Alert Low,HH-Alert High <-Panic Low,>-Panic High,A-Abnormal,AA-Cri tical Abnormal Performed at: 01 =G [facility] [address] Rosy Madrigal MD, IGP, Aptima HPV, rfx 16/18,45 Note . TESTS RESULT FLAG UNITS REF RANGE LAB DIAGNOSIS: 02 NEGATIVE FOR INTRAEPITHELIAL LESION OR MALIGNANCY. Specimen adequacy: 02 Satisfactory for evaluation. No endocervical component is identified. Performed by: 02 Elizabeth Garza, User Support Analyst (ASCP) . 02 Note: Note 02 The Pap [...] L-Low Normal,H-High Normal,LL-Alert Low,HH-Alert High <-Panic Low,>-Panic High,A-Abnormal,AA-Cri tical Abnormal Performed at: [address] [address] Rosy Madrigal MD, HPV Aptima Negative Negative This nucleic acid amplification test detects fourteen high- risk HPV types (16,18,31,33,35,39,45, 51,52,56,58,59,66,68) without differentiation. Performed at: = - [facility] [id number] Giver: Rosy Madrigal MD, Phone: [phone] Performed at: [facility] [id number] Giver: Rosy Madrigal MD, Phone: [phone] Performing Lab: see note [facility] LB PROF 14(COMP METB) Reviewed date:12/14/2024 08:43:40 PM Interpretation: Performing Lab: Notes/Report: [facility] , Sodium 140 136-145 mmol/L Potassium [...] Performing Lab: see note ML - [facility] LIPID PROFILE Reviewed date:12/14/2024 08:43:40 PM Interpretation: Performing Lab: Notes/Report: [facility] , Triglycerides 66 <=150 mg/dL Cholesterol [...] >11.0 HIGH RISK Performing Lab: see note ML - [facility] GLYCOHEMOGLOBIN A1C Reviewed date:12/14/2024 08:43:40 PM Interpretation: Performing Lab: Notes/Report: [facility] , Glycohemoglobin A1C 5.1 4.5-6.2 % ADA RECOMMENDED LIMIT 4.0 - 6.0 ADA THERAPEUTIC TARGET < 7.0 ACTION SUGGESTED > 7.0 Estimated Average Glucose 100 Performing Lab: see note ML - [facility] FREE T3 Reviewed date:12/14/2024 08:43:40 PM Interpretation: Performing Lab: Notes/Report: [facility] , Free T3 2.74 2.18-3.98 pg/mL Performing Lab: see note ML - [facility] CT abdomen pelvis wo con Reviewed date:08/31/2024 08:03:35 PM Interpretation: Performing Lab: Notes/Report: Source Facility: [facility]-[address] [place] [address] [place] [address] CT Scan Report Signed Patient: KRISTINE MOORE MR#: [id number] : 1980 Acct:[id number] Age/Sex: 43 / F ADM Date: 08/31/24 Loc: ER Attending Dr: Ordering Physician: Yvette Rubio Date of Service: 08/31/24 Procedure(s): CT abdomen pelvis wo con Accession Number(s): [id number] cc: Yasir Ledesma M.D. [address] [address] Patient Name: KRISTINE MOORE MRN: [id number] date: 1980 Sex: F Assigned Patient Location: ER Current Patient Location: ER Accession/Order Number: [id number] Exam Date: 08/31/2024 16:30 Report Date: 08/31/2024 [...] Dictated By: Peggy Maldonado M.D. Signed By: 08/31/24 1722 DD/ 049 TD/TT: Track Fitter: The [address] [address] [address] Scan Report Signed Patient: KAREN MOORE MR#: [id number] : 1980 Acct:[id number] Age/Sex: 43 / F ADM Date: 08/31/24 Loc: ER Attending Dr: Ordering Physician: Yvette Rubio Date of Service: 08/31/24 Procedure(s): CT abdomen pelvis wo con Accession Number(s): [id number] cc: Yasir Ledesma M.D. [place] [id number] Patient Name: KRISTINE MOORE MRN: [id number] date: 1980 Sex: F Assigned Patient Location: ER Current Patient Location: ER Accession/Order Numb er: [id number] Exam Date: 16:30 Report Date: 08/31/2024 17:17 At the [...] PEGGY MALDONADO Date: 08/31/2024 17:17 Dictated By: Wolfgang Maldonado M.D. Signed By: 08/31/241719 DD/ 16 TD/TT: Track Fitter: Urine Culture, Routine Reviewed date:08/19/2024 03:37:19 PM [...] Urine Culture, Routine Performed at: - [facility] [place] Urine Culture, Routine Urine Culture, Routine [address] [place], [place] [phone] Urine Culture, Routine Urine Culture, Routine Giver: Bryce Queen PhD, Phone: [phone] Urine Culture, Routine Performing Lab: see note LC - [facility] LB SEE REPORT - Diesel Pile Driver Operator Id information not found for OBX-specific event producer legend URINE MICROSCOPIC ONLY Reviewed date:08/16/2024 08:58:12 PM Interpretation: Performing Lab: Notes/Report: [facility] , WBC Urine 10-20 NONE SEEN #/HPF RBC Urine 20-50 0-2 #/HPF Bacteria Urine SMALL NONE SEEN #/HPF Mucus Urine NONE SEEN NONE SEEN Squamous Epithelial Cell Urine FEW NONE/RARE #/LPF Crystals Seen? None Seen None Seen #/HPF Cast Seen? NONE SEEN NONE SEEN #/LPF Urine Culture Indicated YES Performing Lab: see note ML - [facility] LB PROF 14(COMP METB) Reviewed date:08/16/2024 08:58:12 PM Interpretation: Performing Lab: Notes/Report: [facility] , Sodium 141 136-145 mmol/L [...] Performing Lab: see note ML - [facility] LB LACTATE or LACTIC ACID Reviewed date:08/16/2024 08:58:12 PM Interpretation: Performing Lab: Notes/Report: [facility] , Lactate/Lactic Acid 0.9 0.4-2.0 mmol/L Performing Lab: see note ML - [facility] LB CBC AUTO DIFF Reviewed date:08/16/2024 08:58:12 PM Interpretation: Performing Lab: Notes/Report: [facility] , White Blood Count 5.5 4.0-11.0 [...] Performing Lab: see note ML - [facility] LB CT abdomen pelvis w con Reviewed date:08/10/2024 09:59:46 PM Interpretation: Performing Lab: Notes/Report: Source Facility: [facility]-[address] [place] [address] [place] [address] CT Scan Report Signed Patient: KRISTINE MOORE MR#: [id number] : 1980 Acct:[id number] Age/Sex: 43 / F ADM Date: 08/10/24 Loc: ER Attending Dr: Ordering Physician: Sathya Quintana Date of Service: 08/10/24 Procedure(s): CT abdomen pelvis w con Accession Number(s): [id number] cc: Yasir Ledesma M.D. [place] [address] Patient Name: KRISTINE MOORE MRN: [id number] date: 1980 Sex: F Assigned Patient Location: ER Current Patient Location: ED.MAIN Accession/Order Number: [id number] Exam Date: 08/10/2024 17:58 Report Date: 08/10/2024 [...] M.D. Signed By: 08/10/242005 DD/ 03 TD/TT: Track Fitter: [place] [address] CT Scan Report Signed Patient: KAREN MOORE MR#: [id number] : 1980 Acct:[id number] Age/Sex: 43 / F ADM Date: 08/10/24 Loc: ER Attending Dr: Ordering Physician: Sathya Quintana Date of Service: 08/10/24 Procedure(s): CT abdomen pelvis w con Accession Number(s): [id number] cc: Yasir Ledesma M.D. [place] [id number] Patient Name: KRISTINE MOORE MRN: [id number] date: 1980 Sex: F Assigned Patient Location: ER Current Patient Location: ED.MAIN Accession/Order Numb er: [id number] Exam Date: 4 17:58 Report Date: 08/10/2024 [...] use of iterative reconstruction technique. Findings: Liver/Biliary System : No liver [...] veins and portal jaime ous system. Bowel/Fluid/Nodes: Small bowel intussusception is seen [...] M.D. Signed By: 08/10/242005 DD/ 03 TD/TT: Track Fitter: URINE MICROSCOPIC ONLY Reviewed date:08/10/2024 09:59:46 PM Interpretation: Performing Lab: Notes/Report: [facility] , WBC Urine 0-2 NONE SEEN #/HPF RBC Urine 50-75 0-2 #/HPF Bacteria Urine TRACE NONE SEEN #/HPF Mucus Urine NONE SEEN NONE SEEN Squamous Epithelial Cell Urine FEW NONE/RARE #/LPF Crystals Seen? None Seen None Seen #/HPF Cast Seen? NONE SEEN NONE SEEN #/LPF Urine Culture Indicated NO Performing Lab: see note ML - [facility] LB UA (CLEAN or CATCH) CLUB LICENSEE or M ICRO IF IND. Reviewed date:08/10/2024 09:59:46 PM Interpretation: Performing Lab: Notes/Report: [facility] , Color Urine YELLOW YELLOW Clarity Urine CLEAR CLEAR Specific Solomon Urine 1.025 1.005-1.025 pH Urine 6.0 5.0-9.0 Protein Urine NEGATIVE NEG/TRACE mg/dL Glucose Urine UA NEGATIVE NEGATIVE mg/dL Bilirubin Urine NEGATIVE NEGATIVE Ketones Urine TRACE NEGATIVE mg/dL Blood Urine LARGE NEGATIVE Nitrite Urine NEGATIVE NEGATIVE Urobilinogen Urine 0.2 0.2-1.0 EU/dL Leukocyte Esterase Urine TRACE NEGATIVE Urine Microscopic Indicated YES Performing Lab: see note ML - [facility] LB PROF 14(COMP METB) Reviewed date:08/10/2024 09:59:46 PM Interpretation: Performing Lab: Notes/Report: [facility] , Sodium 144 136-145 mmol/L Potassium [...] 1.0 Performing Lab: see note ML - [facility] LB LIPASE Reviewed date:08/10/2024 09:59:46 PM Interpretation: Performing Lab: Notes/Report: [facility] , Lipase 68.0 16.0-77.0 U/L Performing Lab: see note ML - [facility] LB LACTATE or LACTIC ACID Reviewed date:08/10/2024 09:59:46 PM Interpretation: Performing Lab: Notes/Report: [facility] , Lactate/Lactic Acid 1.9 0.4-2.0 mmol/L Performing Lab: see note ML - [facility] LB CBC AUTO DIFF Reviewed date:08/10/2024 09:59:46 PM Interpretation: Performing Lab: Notes/Report: [facility] , White Blood Count 5.2 4.0-11.0 [...] 3/uL Performing Lab: see note ML - [facility] LB CT abdomen pelvis w con Reviewed date:07/06/2024 01:04:11 PM Interpretation: Performing Lab: Notes/Report: Source Facility: [place] [address] CT Scan Report Signed Patient: KRISTINE MOORE MR#: [id number] : 1980 Acct:[id number] Age/Sex: 43 / F ADM Date: 07/06/24 Loc: ER Attending Dr: Ordering Physician: Genna Heaton M.D. Date of Service: 07/06/24 Procedure(s): CT abdomen pelvis w con Accession Number(s): [id number] cc: Yasir Ledesma M.D. [place] [address] Patient Name: KRISTINE MOORE MRN: [id number] date: 1980 Sex: F Assigned Patient Location: ER Current Patient Location: ER Accession/Order Number: [id number] Exam Date: 07/06/2024 10:32 Report Date: 07/06/2024 [...] Signed By: 07/06/24 1111 DD/ 1109 TD/TT: Track Fitter: [place] [address] CT Scan Report Signed Patient: KAREN MOORE MR#: [id number] : 1980 Acct:[id number] Age/Sex: 43 / F ADM Date: 07/06/24 Loc: ER Attending Dr: Ordering Physician: Genna Heaton M.D. Date of Service: 07/06/24 Procedure(s): CT abdomen pelvis w con Accession Number(s): [id number] cc: Yasir Ledesma M.D. [facility] [address] [place] [id number] Patient Name: KRISTINE MOORE MRN: [id number] date: 1980 Sex: F Assigned Patient Location: ER Current Patient Location: ER Accession/Order Numb er: [id number] Exam Date: 07/06/2024 10:32 Report Date: 07/06/2024 [...] Signed By: 07/06/24 1111 DD/ 1109 TD/TT: Track Fitter: RHETT RANDOM W or MICROSCOPIC Reviewed date:07/06/2024 01:04:11 PM Interpretation: Performing Lab: Notes/Report: [facility] , Color Urine YELLOW YELLOW Clarity Urine CLEAR CLEAR Specific Solomon Urine 1.025 1.005-1.025 pH Urine 6.0 5.0-9.0 [...] YES Performing Lab: see note ML - [facility] LB PROF CHEM 8 (BAS METB) Reviewed date:07/06/2024 01:04:11 PM Interpretation: Performing Lab: Notes/Report: [facility] , Sodium 138 136-145 mmol/L Potassium 3.7 3.5-5.1 mmol/L Chloride 102 98-107 mmol/L Carbon Dioxide 29.9 21.0-32.0 mmol/L Anion Gap 9.8 Glucose 88 74-106 mg/dL Blood Urea Nitrogen 15.0 7.0-18.0 mg/dL Creatinine 0.74 0.55-1.02 mg/dL Estimated GFR ( Grace >60 >=60 Estimated GFR (Non- Essnece >60 >=60 BUN Creatinine Ratio 20.3 Calcium 9.2 8.5-10.1 mg/dL Performing Lab: see note ML - [facility] LB MAGNESIUM Reviewed date:07/06/2024 03:21:47 PM Interpretation: Performing Lab: Notes/Report: [facility] , Magnesium 2.0 1.8-2.4 mg/dL Performing Lab: see note ML - [facility] LB LIVER PROFILE Reviewed date:07/06/2024 01:04:11 PM Interpretation: Performing Lab: Notes/Report: [facility] , Bilirubin Total 0.4 0.2-1.0 mg/dL Bilirubin Direct 0.1 0.0-0.2 mg/dL Aspartate Amino Transferase 11 15-37 U/L Alanine Aminotransferase 18 14-59 U/L Alkaline Phosphatase 105 46-116 U/L Total Protein 7.6 6.4-8.2 g/dL Albumin Level 4.0 3.4-5.0 g/dL Globulin 3.6 Albumin Globulin Ratio 1.1 Performing Lab: see note ML - [facility] LB LIPASE Reviewed date:07/06/2024 01:04:11 PM Interpretation: Performing Lab: Notes/Report: [facility] , Lipase 55.0 16.0-77.0 U/L Performing Lab: see note ML - [facility] LB LACTATE or LACTIC ACID Reviewed date:07/06/2024 03:21:47 PM Interpretation: Performing Lab: Notes/Report: [facility] , Lactate/Lactic Acid 1.1 0.4-2.0 mmol/L Performing Lab: see note ML - [facility] LB CBC AUTO DIFF Reviewed date:07/06/2024 01:04:11 PM Interpretation: Performing Lab: Notes/Report: [facility] , White Blood Count 5.2 4.0-11.0 [...] 0.00-0.03 10 3/uL Performing Lab: see note - [facility] LB AMYLASE Reviewed date:07/06/2024 01:04:11 PM Interpretation: Performing Lab: Notes/Report: [facility] , Amylase 58 25-115 U/L Performing Lab: see note - [facility] LB CT abdomen pelvis wo con Reviewed date:06/21/2024 09:29:41 PM Interpretation: Performing Lab: Notes/Report: Source Facility: [place] [address] CT Scan Report Signed Patient: KRISTINE MOORE MR#: [id number] : 1980 Acct:[id number] Age/Sex: 43 / F ADM Date: 06/21/24 Loc: ER Attending Dr: Ordering Physician: Mouna Dunham D.O. Date of Service: 06/21/24 Procedure(s): CT abdomen pelvis wo con Accession Number(s): [id number] cc: Yasir Ledesma M.D. [place] [address] Patient Name: KRISTINE MOORE MRN: [id number] date: 1980 Sex: F Assigned Patient Location: ER Current Patient Location: ER Accession/Order Number: [id number] Exam Date: 06/21/2024 08:11 Report Date: 06/21/2024 [...] M.D. Signed By: 06/21/2437 DD/ 4 TD/TT: Track Fitter: [place] [address] CT Scan Report Signed Patient: KAREN MOORE MR#: [id number] : 1980 Acct:[id number] Age/Sex: 43 / F ADM Date: 06/21/24 Loc: ER Attending Dr: Ordering Physician: Mouna Dunham D.O. Date of Service: 06/21/24 Procedure(s): CT abdomen pelvis wo con Accession Number(s): [id number] cc: Yasir Ledesma M.D. [place] [address] Patient Name: KRISTINE MOORE MRN: [id number] date: 1980 Sex: F Assigned Patient Location: ER Current Patient Location: ER Accession/Order Numb er: [id number] Exam Date: 06/21/2024 08:11 Report Date: 06/21/2024 [...] fracture. OTHER: Implanted rig ht flank neurostimulator CT/CT abdomen pelvis wo con IMPRESSION: No obstructive uropathy Electronically authenticated by: CARISSA JOHN Date: 06/21/2024 08:35 Dictated By: Danny John M.D. Signed By: 06/21/24 0837 DD/ 0835 TD/TT: Track Fitter: PROF Hill(COMP METB) Reviewed date:06/21/2024 09:29:41 PM Interpretation: Performing Lab: Notes/Report: [facility] , Sodium 141 136-145 mmol/L Potassium [...] 1.0 Performing Lab: see note ML - [facility] LB CBC AUTO DIFF Reviewed date:06/21/2024 09:29:41 PM Interpretation: Performing Lab: Notes/Report: [facility] , White Blood Count 6.2 4.0-11.0 [...] Performing Lab: see note ML - [facility] LB XR tibia fibula LT 2V Reviewed date:05/18/2024 12:59:50 PM Interpretation: Performing Lab: Notes/Report: Source Facility: [facility] [place] [address] [place] [address] XRay Report Signed Patient: KRISTINE MOORE MR#: [id number] : 1980 Acct:[id number] Age/Sex: 43 / F ADM Date: 05/17/24 Loc: ER Attending Dr: Ordering Physician: Rukhsana Woods Date of Service: 05/17/24 Procedure(s): XR tibia fibula LT 2V Accession Number(s): [id number] cc: Yasir Ledesma M.D.; Rukhsana Woods [place] [address] Patient Name: KRISTINE MOORE MRN: [id number] date: 1980 Sex: F Assigned Patient Location: ER Current Patient Location: ER Accession/Order Number: [id number] Exam Date: 05/17/2024 22:50 Report Date: 05/18/2024 [...] M.D. Signed By: 05/18/24103 DD/ 0 TD/TT: Track Fitter: [place] [address] XRay Report Signed Patient: KAREN MOORE MR#: [id number] : 1980 Acct:[id number] Age/Sex: 43 / F ADM Date: 05/17/24 Loc: ER Attending Dr: Ordering Physician: Rukhsana Woods Date of Service: 05/17/24 Procedure(s): XR tib ia fibula LT 2V Accession Number(s): [id number] cc: Yasir Ledesma M.D. ; Rukhsana Woods [place] [address] Patient Name: KRISTINE MOORE MRN: [id number] date: 1980 Sex: F Assigned Patient Location: ER Current Patient Location: ER Accession/Order Numb er: [id number] Exam Date: 05/17/2024 22:50 Report Date: 05/18/2024 [...] M.D. Signed By: 05/18/24103 DD/ 0 TD/TT: Track Fitter: XR ankle LT min 3V Reviewed date:05/18/2024 12:59:50 PM Interpretation: Performing Lab: Notes/Report: Source Facility: [place] [address] [place] [address] XRay Report Signed Patient: KRISTINE MOORE MR#: [id number] : 1980 Acct:[id number] Age/Sex: 43 / F ADM Date: 05/17/24 Loc: ER Attending Dr: Ordering Physician: Rukhsana Woods Date of Service: 05/17/24 Procedure(s): XR ankle LT min 3V Accession Number(s): [id number] cc: Yasir Ledesma M.D.; Rukhsana Woods [address] [id number] Patient Name: KRISTINE MOORE MRN: [id number] date: 1980 Sex: F Assigned Patient Location: ER Current Patient Location: Accession/Order Number: [id number] Exam Date: 05/17/2024 22:50 Report Date: 05/18/2024 [...] III, M.D. Signed By: 05/18/2451 DD/ TD/TT: Track Fitter: The [address] [address] XRay Report Signed Patient: KAREN MOORE MR#: [id number] : 1980 Acct:[id number] Age/Sex: 43 / F ADM Date: 05/17/24 Loc: ER Attending Dr: Ordering Physician: Rukhsana Woods Date of Service: 05/17/24 Procedure(s): XR ank le LT min 3V Accession Number(s): [id number] cc: Yasir Ledesma M.D. ; Rukhsana Marker The [address] [address] Patient Name: KRISTINE MOORE MRN: [id number] date: 1980 Sex: F Assigned Patient Location: ER Current Patient Location: Accession/Order Numb er: [id number] Exam Date: 05/17/2024 22:50 Report Date: 05/18/2024 [...] III, M.D. Signed By: 05/18/2451 DD/ TD/TT: Track Fitter: TSH Reviewed date:12/14/2024 08:43:40 PM Interpretation: Performing Lab: Notes/Report: [facility] , Thyroid Stimulating Hormone 1.175 0.358-3.740 uIU/mL Performing Lab: see note ML - [facility] LB T4 Reviewed date:12/14/2024 08:43:40 PM Interpretation: Performing Lab: Notes/Report: [facility] , T4 Thyroxine 7.50 4.80-13.90 ug/dL Performing Lab: see note ML - [facility] LB Reason For Referral Diagnosis 1 Vertigo (R42) Referral Organization [facility] Referring Provider First Name Malachi Referring Provider Last Name [facility] Referring Provider Speciality Family Med icine Referred Provider TB, Physical Therap y Referred Provider Specialty Physical Med icine and Rehabilitation Referral Priority Routine Diagnosis 1 Low back derangement syndrome (M53.86) Referral Organization [facility] Referring Provider First Name Malachi Referring Provider Last Name [facility] Referring Provider Speciality Family Med icine Referred Provider TB, Physical Therap y Referred Provider Specialty Physical Med icine and Rehabilitation Referral Priority Routine Medications Medication SIG (Take, Route, Frequency, Duration) Notes Start Date End Date Status Hyoscyamine Sulfate 0.125 MG 1-2 tabs SL [...] 50 Plus - as directed Orally Active Pantoprazole Sodium 40 MG Take 2 tablets by mouth once daily. for 90 Active Pregabalin 50 MG 1 capsule Orally BID Active Albuterol Sulfate (2.5 MG/3ML) 0.083% 3 mL as needed Inhalation every 6 hrs 12/03/2023 Active Premarin 0.625 MG/GM 0.625 Vaginal Once a day 06/12 Active Promethazine HCl 25 MG 1 suppository as needed Rectal every 6 hrs for 2 days 12/13/2024 Active Amitriptyline HCl 100 MG 1 tablet Orally at bedtime for 30 days Active Promethazine HCl 25 MG 1 tablet as neede d Orally q6h for 30 days PRN 08/13/2023 Active Calcium 600 MG 2 tablet with meals Orally Once a day Active Reglan 10 MG 1 tablet as needed O rally every 4 hrs for 30 days 01/20/2023 Active Carafate 1 GM 1 tablet on an empty stomach Orally QID Active tiZANidine HCl 4 MG 2 capsules Orally Q HS for 30 days Active CeleXA 10 MG 1 tablet Orally Once a day for 30 days 12/01/2024 Active Topamax 50 MG 1 tablet Orally Once a day for 30 days 09/13/2023 Active Triamcinolone Acetonide 0.1 % 1 application Externally Twice a day for 30 11/22/2023 Active Cyanocobalamin 1000 MCG/ML 1 mL Injectio n once a month Active Wegovy 0.25 MG/0.5ML 0.25 mg Subcutaneou s weely for 30 days 12/06/2024 Active Dicyclomine HCl 20 MG 1 tablet Orally QI D for 30 days 10/23/2024 Active Ferrous Sulfate 325 (65 Fe) MG 1 tablet Orally Once a day Active Flomax 0.4 MG 1 capsule Orally Onc e a day for 30 days 01/12/2025 Active HYDROcodone-Acetaminophen 5-325 MG 1 tablet as needed Orally BID as needed ([facility]) PRN Active Social History Tobacco Use: Social History [...] Problem Status W/U Status Risk Notes Problem 66344001 Iron deficiency anemia, unspecified (D50.9) Active confirmed Problem Dehydration (48306703) Dehydration (E86.0) Active confirmed Problem Otitis externa (1294838) Unspecified otitis externa, unspecified ear (H60.90) Active confirmed Problem Marginal perforation of tympanic membrane (85364526) Other marginal perforations of tympanic membrane, left ear (H72.2X2) Active confirmed Problem Acute frontal sinusitis (54738347) Acute recurrent frontal sinusitis (J01.11) Active confirmed Problem Contracture of ankle joint (disorder) (008254106) Contracture, unspecified ankle (M24.573) Active confirmed Problem Cystitis (76347215) Other cystit is without hematuria (N30.80) Active confirmed Problem Sprain of lateral collateral ligament of knee (89660988) Sprain of lateral collateral ligament of left knee, initial encounter (S83.422A) Active confirmed Problem Adverse reaction caused by drug (disorder) (82051689) Adverse effect of unspecified drugs, medicaments and biological substances, initial encounter (T50.905A) Active confirmed Problem Exposure to communicable disease (628350293) Contact with and (suspected) exposure to other viral communicable diseases (Z20.828) Active confirmed Problem History of urinary disease (212801245) Personal history of other diseases of urinary system (Z87.448) Active confirmed Problem Hypertension (68520752) Hypertension (I10) Active confirmed Problem Osteoarthritis (978421928) Osteoarthritis (M19.90) Active confirmed Problem Gastroesophageal reflux disease (578084457) GERD (gastroesophageal reflux disease) (K21.9) Active confirmed Problem Vertigo (557698605) Vertigo (R42) Active confir med Problem Insomnia (769542214) Insomnia (G47.00) Active confirmed Problem Hiatal hernia (73686872) Hiatal hernia (K44.9) Active confirmed Problem Knee pain (9366680482) Knee pain (M25.569) Active confirmed Problem Discharge from right nipple (08798508467449292) Discharge from right nipple (N64.52) Active confirmed Problem Migraine (19211615) Migraine (G43.909) Active confirmed Problem Kidney stone (60222959) Kidney stone (N20.0) Active confirmed Problem Colitis (11886835) Colitis (K52.9) Active confi rmed Problem Vaginitis (99883413) Vaginitis (N76.0) Active confirmed Problem Urticaria (182196083) Urticaria (L50.9) Active confirmed Problem Well adult (844622923) Well adult (Z00.00) Active confirmed Problem Acute kidney injury (50910023) Acute kidney injury (N17.9) Active confirmed Problem Hypoglycemia (730831457) Hypoglycemia (E16.2) Active confirmed Problem Pre-surgery evaluation (869717593) Pre-op exam (Z01.818) Active confirmed Problem Pain in limb (51954156) Arm pain, left (M79.602) Active confirmed Problem Diverticulitis (25053687) Diverticulitis (K57.92) Active confirmed Problem Otitis media of left ear (6529587242022812) Otitis media of left ear (H66.92) Active confirmed Problem Plantar fasciitis (574784453) Plantar fasciitis (M72.2) Active confirmed Problem Pyelonephritis (33963033) Pyelonephritis (N12) Active confirmed Problem Acute gastric ulcer (73189541) Acute gastric ulcer (K25.3) Active confirmed Problem Seasonal allergic rhinitis (324055454) Allergic rhinitis, seasonal (J30.2) Active confirmed Problem Iron deficiency anemia (71249747) Anemia, iron deficiency (D50.9) Active confirmed Problem Common migraine (79498297) Common migraine (G43.009) Active confirmed Problem Microcytic anemia (230855304) Microcytic anemia (D50.9) Active confirmed Problem Diverticular disease (983793198) Diverticular disease (K57.90) Active confirmed Problem 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 Problem Vertebral artery occlusion, 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) Active confirmed Problem Vaginal dryness (93524280) Vaginal dryness (N89.8) Active confirmed Problem Peripheral vertigo (44099609) Vertigo, peripheral (H81.399) Active confirmed Problem Cobalamin deficiency (598810519) Cobalamin deficiency (E53.8) Active confirmed Problem Essential hypertension (36750332) BP (high blood pressure) (I10) Active confirmed Problem Ovarian cyst (36585176) Cyst, ovarian (N83.209) Active confirmed Problem Disorder of sacrum (82429385) Low back derangement syndrome (M53.86) Active confirmed Problem Gastrojejunal ulcer (37024701) Gastrojejunal ulcer (K28.9) Active confirmed Problem Inversion of right nipple (20365875983504758) 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 [address] [place] [address] 01/16/2025 Malachi Ledesma [facility] [address] [place] [address] 02/05/2025 Malachi Montanezy Dehydration E86.0 [facility] [address] [place] [address] 04/20/2025 Malachi Ledesma Nephrolithiasis N20. 0 [facility] [address] [place] [address] 05/04/[address] [facility] [address] [facility] [place] [address] 09/27/[address] [facility] [address] [facility] [place] [address] 12/05/2024 Malachi Montanezy [facility] [address] [facility] [place] [address] 12/08/[address] [facility] [address] [facility] [place] [address] 12/13/[address] [facility] [address] [facility] [place] [address] 12/14/[address] [facility] [address] [facility] [place] [address] 01/05/[address] [facility] [address] [place] [place] [address] 07/06/[address] [facility] [address] [place] [place] [address] 07/07/[address] [facility] [address] [place] [place] [address] 08/17/[address] [facility] [address] [place] [place] [address] 08/31/2024 Malachi Hoy Otitis media of left ear H66.92 [facility] [address] [facility] [place] [address] 09/14/2024 [address] G43.909 [facility] [address] [facility] [place] [address] 09/22/[address] [facility] [address] [facility] [place] [address] 05/17/2024 Malachi Hoy Vertebral artery occlusion, 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 [facility] [address] [facility] [place] [address] 06/09/2024 Malachi Hoy Fatigue R53.[address] [facility] [address] [place] [place] [address] 06/20/[address] [facility] [address] [place] [place] [place] [address] 01/12/2025 Malachi Hoy Nephrolithiasis N20. 0 [facility] [address] [place] [place] [address] 01/16/2025 Malachi Hoy Acute kidney injury N17.9 [facility] [address] [place] [place] [address] 06/14/2024 Malachi Hoy Acute bronchitis, unspecified organism J20.9 [facility] [address] [place] [place] [address] 07/05/2024 Malachi Hoy Dehydration E86.0 ; Diverticulitis K57.92 and Vertigo R42 [place] [address] [facility] [place] [address] 08/31/2024 Malachi Hoy Gastroenteritis K52. 9 and Flank pain R10.9 [place] [address] [facility] [place] [address] 10/23/2024 Malachi Hoy Gastroenteritis K52. 9 [place] [address] [place] [place] [address] 10/26/2024 Malachi Hoy Gastroenteritis K52. 9 and Urinary frequency R35.0 [place] [address] [facility] [place] [address] 12/07/2024 Malachi Hoy Nephrolithiasis N20. 0 and Well adult Z00.00 [facility] [address] [facility] [place] [address] 03/12/2025 Malachi Hoy UTI (urinary tract infection), uncomplicated N39.0 ; Dysuria R30.[address] [facility] [address] [place] [place] [address] 07/13/2024 Malachi Hoy Colitis K52.9 [place] [address] [facility] [place] [address] 09/27/2024 Malachi Hoy Nausea & vomiting R1 1.2 [facility] [address] [place] [address] 05/04/2025 Malachi Hoy Dehydration E86.0 an d Kidney stone N20.0 [facility] [address] [place] [address] 09/26/2024 Malachi Hoy Gastroenteritis K52. 9 [facility] [address] [place] [address] 12/01/2024 Malachi Hoy Hypertension I10 ; A cute gastric ulcer K25.3 ; Hypoglycemia E16.2 ; GERD (gastroesophageal reflux disease) K21.[address] [facility] [address] [place] [address] 12/11/2024 Malachi Hoy Nephrolithiasis N20. [address] [facility] [address] [place] [address] 12/13/2024 [address] E[address] [facility] [address] [place] [address] 12/21/2024 Malachi Hoy Dehydration E86.0 an d Nephrolithiasis N20.0 [facility] [address] [place] [address] 08/09/2024 Kavya Omar Diverticulitis K57.[address] [facility] [address] [place] [address] 08/14/2024 Malachi Hoy Gastroenteritis K52[address] [facility] [address] [place] [address] 08/16/2024 Malachi Hoy Gastroenteritis K52. [address] [facility] [address] [place] [address] 08/23/2024 Malachi Hoy Dehydration E86.0 an d Vaginitis N76.0 [facility] [address] [place] [address] 09/05/2024 Malachi Hoy Low back derangement syndrome M53.[address] [address] 09/19/2024 Malachi Hoy Acute bronchitis, unspecified organism J20.[address] [address] 05/04/2024 Malachi Hoy Otitis media of left ear H66.[address] [address] 05/10/2024 Malachi Hoy Acute non-recurrent sinusitis, unspecified location J01.90 ; Nasal congestion R09.81 and Vertigo, peripheral H81.[address] [address] 06/05/2024 Malachi Hoy Vertigo R42 [address] [address] 06/20/2024 Mlaachi Hoy Dehydration E86.[address] [address] 05/17/2024 Malachi Hoy Dehydration E86.0 ; Hypertension I10 and Vertigo, peripheral H81.399 Assessments Encounter Date Diagnosis (ICD Code) Assessment Notes Treatment Notes Treatment Clinical Notes Section Notes 05/04/2024 Otitis media of left ear (ICD-10 - H66.92) 05/10/2024 Acute non-recurrent sinusitis, unspecified location (ICD-10 - J01.90) Rest and drink more liquids, especially water. You may use a humidifier or vaporizer to help keep the drainage moist. Dizm-xhj-juexbsf Nasal Saline may help the stuffy and runny nose. Use Ibuprofen and or Tylenol as needed for fever, chills, body aches or pain. Children 5 years old should not be given ihvr-eas-oepnqdp cough and cold medications such as guaifenesin and dextromethorphan. If you're over age 5, you may try vmnf-omp-vtusbab cold medications such as guaifenesin and dextromethorphan, [...] East back into eating by eating bland, ykap-me-iqheuf foods like crackers, toast, gelatin, bananas, rice and chicken. Try to avoid foods/substances including dairy products, caffeine, alcohol, nicotine and fatty or highly seasoned foods. Medications such as ibuprofen or tylenol can make your stomach more upset, so use sparingly if at all. Also avoid glkv-rcd-lnnfvxz anti-diarrheal medications because it can make it [...] East back into eating by eating bland, sqei-qg-xzjhwe foods like crackers, toast, gelatin, bananas, rice and chicken. Try to avoid foods/substances including dairy products, caffeine, alcohol, nicotine and fatty or highly seasoned foods. Medications such as ibuprofen or tylenol can make your stomach more upset, so use sparingly if at all. Also avoid lvon-cdl-argycyx anti-diarrheal medications because it can make it [...] vaporizer to help keep the drainage moist. Beny-izi-kexadig Nasal Saline may help the stuffy and runny nose. Use Ibuprofen and or Tylenol as needed for fever, chills, body aches or pain. Children 5 years old should not be given emuk-cqv-xpmpnmm cough and cold medications such as guaifenesin and dextromethorphan. If you're over age 5, you may try agqb-kxr-ntidnfy cold medications such as guaifenesin and dextromethorphan, [...] East back into eating by eating bland, elpu-iy-nqkhhg foods like crackers, toast, gelatin, bananas, rice and chicken. Try to avoid foods/substances including dairy products, caffeine, alcohol, nicotine and fatty or highly seasoned foods. Medications such as ibuprofen or tylenol can make your stomach more upset, so use sparingly if at all. Also avoid oldp-sbk-mhfcuhs anti-diarrheal medications because it can make it [...] East back into eating by eating bland, fftz-oh-baznmc foods like crackers, toast, gelatin, bananas, rice and chicken. Try to avoid foods/substances including dairy products, caffeine, alcohol, nicotine and fatty or highly seasoned foods. Medications such as ibuprofen or tylenol can make your stomach more upset, so use sparingly if at all. Also avoid mlgb-gyl-qxusjwq anti-diarrheal medications because it can make it [...] East back into eating by eating bland, voax-uv-kazihs foods like crackers, toast, gelatin, bananas, rice and chicken. Try to avoid foods/substances including dairy products, caffeine, alcohol, nicotine and fatty or highly seasoned foods. Medications such as ibuprofen or tylenol can make your stomach more upset, so use sparingly if at all. Also avoid nlfg-qav-otncygr anti-diarrheal medications because it can make it [...] vaporizer to help keep the drainage moist. Xfpg-xjv-vnvolxq Nasal Saline may help the stuffy and runny nose. Use Ibuprofen and or Tylenol as needed for fever, chills, body aches or pain. Children 5 years old should not be given rlcu-jks-codkpeo cough and cold medications such as guaifenesin and dextromethorphan. If you're over age 5, you may try jqqz-pmy-hzsbxfd cold medications such as guaifenesin and dextromethorphan, [...] until they are finished. You can use qosk-coa-mchvjzu acetaminophen or ibuprofen if needed for pain. You should follow up with your Primary Care Physician or return to clinic if not improving in the next 3-5 days. 05/04/2025 Dehydration (ICD-10 - E86.0) 05/04/2025 Kidney stone (ICD-10 - N20.0) 05/17/2024 Vertebral artery occlusion, unspecified laterality (ICD-10 - I65.09) 06/09/2024 Fatigue (ICD-10 - R53.83) 06/09/2024 Migraine (ICD-10 - G43.909) 08/31/2024 Otitis media of left ear (ICD-10 - H66.92) 09/14/2024 Migraine (ICD-10 - G43.909) 09/22/2024 Dehydration (ICD-10 - E86.0) 02/05/2025 Dehydration (ICD-10 - E86.0) 04/20/2025 Nephrolithiasis (ICD-10 - N20.0) 03/12/2025 Dysuria (ICD-10 - R30.0) 03/12/2025 Hypertension (ICD-10 - I10) 07/05/2024 Vertigo (ICD-10 - R42) 05/17/2024 Vertigo, peripheral (ICD-10 - H81.399) seeing pt - refill mecliziner 12/01/2024 Hypoglycemia (ICD-10 - E16.2) 05/10/2024 Vertigo, peripheral (ICD-10 - H81.399) 12/01/2024 GERD (gastroesophageal reflux disease) (ICD-10 - K21.9) 12/01/2024 Hyperglycemia (ICD-10 - R73.9) 05/04/2024 Other You have been prescribed antibiotics for strep throat. Antibiotics may bother your stomach, so try taking them with a light meal (unless instructed otherwise by your pharmacist). It is important to take them until they are finished. You can use cxeo-ugv-ifdxekb acetaminophen or ibuprofen if needed for pain. You can also use throat lozenges or gargle warm water to help with the sore throat. You are contagious until you have been on antibiotics for 24 hours. You should be extra vigilant about hand washing or using hand oral surgery assistant gel. You should follow up with your [...] until they are finished. You can use hgzy-zik-rdimjnc acetaminophen or ibuprofen if needed for pain. [...] 03/03/2024 Urinalysis Microscopic 03/15/2024 Urinalysis Microscopic 06/20/2024 Urinalysis Microscopic 05/04/2025 LACTATE 03/15/2024 COMPREHENSIVE METABOLIC PROFILE WITH GFR 06/09/2024 CBC AUTO DIFF 06/09/2024 Covid-19 PCR (CVDTB[facility]) 06/14/2024 CULTURE URINE 03/15/2024 CULTURE URINE 06/20/2024 CULTURE URINE 05/04/2025 GLYCOHEMOGLOBIN A1C 03/12/2025 PROF 14(COMP METB) 03/12/2025 PROTIME 03/03/2024 VIT B12 AND FOLATE 06/09/2024 US KIDNEYS 08/17/2023 XR KUB 1 VIEW 03/03/2024 XR KUB 1 VIEW 03/15/2024 XR KUB 1 VIEW 12/07/2024 THYROID PANEL (T4/TSH/FREE T3) THYROID PANEL (T4/TSH/FREE T3) US renal bladder 12/11/2024 US soft tissue head and neck 03/29/2024 MRA Brain w/o contrast 05/17/2024 CMP (COMP MET NICHOLS) w/eGFR CKD-EPI 2024 Insurance Providers Payer Name Payer Address Payer Phone Subscriber Number Group Number Insured Name Patient Relationship to Insured Coverage Start Date Coverage End Date [employer] [address] [address] [place] [address] [id number] Mando Moore Spouse - patient is the [...] 25 mg Promethazine 25mg 12/11/2024 25 mg Promethazine 25mg 05/04/2025 2 mL Promethazine, 25 mg 08/20/2023 1 mL 25 [...] Hysterectomy Appendix Gallbladder Hospitalization History Reason Date(Month/Year) Ulcerative Colitis 2023 see above
--- OUTSIDE RECORDS SUMMARY | 2025-05-04 12:42 | XMS_ITS | Encounter Summary ---
Author Organization [facility] Address [address] [place] [address] Care Team Providers Care Senior Sustainability Advisor Name Role Phone Yasir Ledesma MD Primary Care Provider [phone] Tyrel King MD Unavailable Reason for Visit * Reason Onset Date Comments Med Refill 07/06/2023 Encounter Details Date Type Department Care Team (Late st Contact Info) Description 07/06/2023 Refill [facility] [place] [id number] Jess Stewart MD Complex regional pain syndrome [...] How often do you attend chur or scientology services? More than 4 times per year 08/13/2022 Do you belong to any clubs o r organizations such as jew groups, unions, fraternal or athletic groups, or [...] Recorded Patient Health Questionnaire-2 Score 0 06/01/2023 [facility] of Occupat ional Health - Occupational [...] in a group home (including now)? No 06/01/2023 Hunger Vital [...] Info) Description 07/17/2025 8:40 AM EDT Follow-Up [facility] [address] [place] [address] [place] [address] Alaina King CNP [address] [place] [id number] documented as of this encounter Visit Diagnoses Diagnosis Complex regional pain syndrome type 1 of left lower extremity documented in this encounter Care Teams Senior Sustainability Advisor Relationship Specialty Start Date End Date Yasir Ledesma MD [address] [place] [place] [address] PCP - General 05/26/22 Tyrel King MD [address] [place], [place] Referring Physician Geriatric Medicine 11/03/22 documented as of this encounter
--- OUTSIDE RECORDS SUMMARY | 2025-05-04 12:42 | XMS_ITS | Clinical Summary ---
Author Organization [facility] Address [address] [place] [address] Care Team Providers Care Er Medical Technician Name Role Phone Yasir Ledesma MD Primary Care Provider [phone] Allergies Active Allergy Reactions Criticality Noted Date [...] (02/06/2021): Added automatically from request for surgery [id number] Nipple pain 02/06/2021 Overview (02/06/2021): Added automatically from request for surgery [id number] Inverted nipple 01/08/2021 Hx of right breast [...] (2023- season) 2024 01/30/2021, 01/09/2021 INFLUENZA VACCINE (#1) 2025 , 07/03/2020, 07/18/2019, Additional history exists TDAP (ADULT) Completed 07/10/2011 PNEUMOCOCCAL VACCINE SERIES Aged Out 01/01/2016 No longer eligible based on patient's age to complete this topic HPV VACCINE Aged Out No longer eligi ble based on patient's age to complete this topic Insurance [facility] [employer] Care Teams Er Medical Technician Relationship Specialty Start Date End Date Yasir Ledesma MD PCP - General Family Medicine 01/08/21
--- OUTSIDE RECORDS SUMMARY | 2025-05-04 12:42 | XMS_ITS | Encounter Summary ---
Author Organization [facility] Address [address] [facility] [place] [address] Care Team Providers Care State Wildlife Officer Name Role Phone Yasir Ledesma MD Primary Care Provider [phone] Tyrel King MD Unavailable Reason for Visit * Reason Onset Date Comments Med Refill 11/22/2023 Encounter Details Date Type Department Care Team (Late st Contact Info) Description 11/22/2023 Refill [facility] [address] [place] [address] Nohelia Reece, [employer] [address] [place] [address] Complex regional pain syndrome type [...] How often do you attend chur or confucianist services? More than 4 times per year 08/13/2022 Do you belong to any clubs o r organizations such as latter-day groups, unions, fraternal or athletic groups, or [...] Recorded Patient Health Questionnaire-2 Score 0 10/28/2023 [facility] of Occupat ional Health - Occupational Stress [...] exercise at this level? 20 min 08/13/2022 [place] Safety & Environment Answer Date Rec orded [...] in a skilled nursing (including now)? No 06/01/2023 Hunger Vital Sign [...] Follow-Up [facility] [address] [place] [address] [place] [address] Alaina King CNP [address] [place] [address] [place] [address] documented as of this encounter Visit Diagnoses Diagnosis Complex regional pain syndrome type 1 of left lower extremity Other chronic postprocedural pain documented in this encounter Care Teams State Wildlife Officer Relationship Specialty Start Date End Date Yasir Ledesma MD [address] [facility] [address] [address] PCP - General 05/26/22 Tyrel King MD [address] [place], [place] Referring Physician Geriatric Medicine 11/03/22 documented as of this encounter
== END 2025-05-04 12:39 | disposition home or self-care (01) ==
LOC: LAB 12:38
PROVIDERS: PCP Family Medicine; Visit Provider Family Medicine
DX: E86.0 Dehydration (principal)
CPT/HCPCS: 87086

== ENCOUNTER 2025-08-14 12:24 | Outpatient (OUT) | payer OTHER, SELFPAY ==
--- OUTSIDE RECORDS SUMMARY | 2025-04-11 03:30 | XMS_ITS ---
Author Organization The [facility] [place] Address [address] [place] [address] Care Team Providers Care Telephone Clerk Telegraph Office Name Role Phone Malachi Ledesma Primary Care Provider REASON FOR VISIT 1 MO F/U Encounters Encounter Location Date Provider Diagnosis [address] [address] 04/11/2025 Malachi Ledesma Plan Of Treatment No Information Progress Notes * Elvi MOORE LDOB:[birth year] (44 yo F)Acc No.[id number]:04/11/2025 UNLOCKED PROGRESS NOTE Progress Note Patient: Elvi MENDIOLA :?Yasir HuertasTTC), MDDOB:1980???Age: 44 Y???Sex:FemaleDate:04/11/2025Phone:[phone]:[address] [place], [place]-[address] Subjective: * Chief Complaints: * 1 . 1 MO F/U. * Medical History: Objective: * Vitals: Assessment: Plan: * Treatment: * * Electronic signature of Malachi Ledesma MD, [id number] on 08/14/2025 at 11:42 AM EST Sign off status: PendingVisit Status:?N/S N/C (No Show/No Charge) * Provider: Gee HuertasUNIVERSITY HOSPITALS [facility] MED[facility] CENTERMD Ernie Date: 0 04/11/2025 Generated for Printing/Faxing/eTransmitting on:?08/14/2025 11:42 AM EST
--- OUTSIDE RECORDS SUMMARY | 2025-08-12 21:59 | XMS_ITS | Encounter Summary ---
Author Organization [facility] tem Address [id number] [address] [place] [address] Care Team Providers Care Behavioral Therapist Name Role Phone Yasir Ledesma MD Primary Care Provider [phone] Reason for Visit * ReasonCommentsFlank PainPt c/o left sided flank pain that began around 3am Encounter Details DateTypeDepartmentCare Team (Latest Contact Info)Hssxeldzzgq42/02/2025 9:59 PM EST - 08/13/2025 1:15 AM [facility] - Emergency [address] [place] [id number] Merlin Rutledge MD [address] [place] [address] Left flank pain (Primary Dx); Abnormal finding on urinalysis Discharge Disposition: Home Social History Tobacco UseTypesPacks/DayYears UsedDateSmoking Tobacco: GnbkhuVrymtqxxkh270 10/19/2000 - 10/19/2015Smokeless Tobacco: NeverAlcohol UseStandard Drinks/Week CommentsNo0 (1 standard drink = 0.6 oz pure alcohol)PHQ-2AnswerDate Recorded Total Srilx838ChildcareAnswerDate FsrwjkieAwlqeogaoTqvibbt33/12/2019 EmploymentAnswerDate BtuwmwguSbjduedyzqEvdfsxl01/12/2019Hunger ScreeningAnswer Date RecordedWithin the past 12 months we worried whether our food would run out before we got money to buy more.Never True08/12/2025Within the past 12 months the food we bought just didn't last and we didn't have money to get more.Never True08/12/2025Purpose - LifeAnswerDate RecordedPurpose and direction in life Gewwtdd93/11/2021CommentsNoSex and Gender InformationValueDate Recorded Sex Assigned at BirthNot on fileLegal SlgYplqrw46/06/2015 11:21 AM EDTGender IdentityNot on fileSexual OrientationNot on fileOccupationIndustryJob Start Date Job End Datefull timeNot on fileNot on fileNot on filedocumented as of this encounter Last Filed Vital Signs Vital SignReadingTime TakenCommentsBlood Hsmxzoor433/8908/13/2025 1:02 AM EST Jmdha9416/03/2025 1:02 AM CIVIyjcniizgmx19.9 ??C (98.4 ??F)08/12/2025 10:02 PM ESTRespiratory Jkhv804610/13/2024 1:02 AM ESTOxygen Kylrxhlust15%08/13/2025 1:02 AM ESTInhaled Oxygen Concentration--Onnelu45.8 kg (165 lb)08/12/2025 10:02 PM ZVSBkfyqs782.6 cm (5' 6 )08/12/2025 10:02 PM ESTBody Mass Index26.6308/12/2025 10:02 PM ESTdocumented in this encounter Discharge Instructions * Discharge Instructions* Luis Portillo DO - 08/13/2025 1:08 AM EST Please call your PCP and urologist for further evaluation and management recommendations. Please return to the ER if having any worsening or new or concerning symptoms. * Attachments The following attachments cannot be sent through Care Everywhere. * Urinary tract infection in adults ??? ED discharge instructions (British) documented in this encounter Medications at Time of Discharge MedicationSigDispense QuantityRefillsLast FilledStart DateEnd Date acetaminophen (TYLENOL) 500 mg tablet Take 2 tablets (1,000 mg total) by mouth. amitriptyline (ELAVIL) 10 mg tablet Take 10 mg by mouth nightly. CALCIUM CITRATE ORAL Take 1 tablet by mouth daily. CEPHalexin (KEFLEX) 500 mg capsule Take 1 capsule (500 mg total) by mouth in the morning and 1 capsule (500 mg total) at noon and 1 capsule (500 mg total) in the evening and 1 capsule (500 mg total) before bedtime. Do all this for 10 days. 40 capsule ferrous sulfate 325 (65 FE) mg tablet Take 1 tablet (325 mg total) by mouth daily with breakfast. HYDROcodone-acetaminophen (NORCO) 5-325 mg per tablet Take 1 tablet by mouth every 6 (six) hours as needed for pain. Max Daily Amount: 4 tablets hyoscyamine (LEVSIN) 0.[address] 1 tablet (125 mcg total) under the tongue. lidocaine (LIDODERM) 5 % Place 1 patch on the skin daily as needed for pain (pain) for up to 15 doses. Remove & Discard patch within 12 hours or as directed by 15 patch 10/02/2022 cjnhxgcr-fqbc-TZ-calcium &mins (THERAGRAN-M) 9 mg iron-400 mcg tablet Take 1 tablet by mouth in the morning. ondansetron ODT (ZOFRAN ODT) 4 mg disintegrating tablet Dissolve 1 tablet (4 mg total) on tongue every 8 (eight) hours as needed for nausea for up to 10 doses. 10 tablet 08/10/2023 pantoprazole (PROTONIX) 20 mg EC tablet Take 2 tablets (40 mg total) by mouth in the morning and 2 tablets (40 mg total) before bedtime. pregabalin (LYRICA) 50 mg capsule Take 1 capsule (50 mg total) by mouth in the morning and 1 capsule (50 mg total) before bedtime. promethazine (PHENERGAN) 25 mg tablet Take 1 tablet (25 mg total) by mouth every 6 (six) hours as needed for nausea or vomiting.documented as of this encounter ED Notes * Merlin Rutledge MD - 08/12/2025 10:10 PM EST Images from the original note were not included. [facility] Pt Name: Elvi Moore Birthdate: 1980 Chief Complaint: Chief Complaint Patient presents with Flank Pain Pt c/o left sided flank pain that began around 3am History of Present Illness: 44-year-old female presents for left flank pain. Patient woke up with left flank pain around 0300 this morning pain has been persistent throughout the day and does not improve with pain medications including Lynbrook and gabapentin which patient takes for history of chronic pain syndrome of the knee. Patient mentioned she has had prior kidney stones, follows up with Dr. Bautista for urology, has previously required stenting and lithotripsy. Patient has a had decreased oral intake today due to pain and nausea. Denies fever, chills, chest pain, diarrhea, constipation, dysuria, hematuria. Past Medical History: Past Medical History: Diagnosis Date Anemia Anxiety Back pain Depression GERD (gastroesophageal reflux disease) Kidney stones Pancreatitis Peptic ulcer PONV (postoperative nausea and vomiting) scapalomine patch works well Spinal cord stimulator status Past Surgical History: Past Surgical History: Procedure Laterality Date APPENDECTOMY ARTHROSCOPY KNEE with chondroplasty medial facet patella and medial femoral condyle, partial lateral menisectomy Right 12/21/2017 Performed by Jr Horacio Thacker DO at [facility] ARTHROSCOPY KNEE, chondroplasty medial facet and medial femoral chondyl. Left 05/17/2018 Performed by Jr Horacio Thacker DO at [facility] ARTHROSCOPY PARTIAL LATERAL MENISECTOMY KNEE Left 05/17/2018 Performed by Jr Horacio Thacker DO at [facility] CHOLECYSTECTOMY CYSTOSCOPY N/A 01/17/2018 Performed by Chinedu Castanon MD at [facility] GASTRIC BYPASS 02/2017 HYSTERECTOMY INNER EAR SURGERY LAPAROSCOPY DIAGNOSTIC N/A 08/27/2020 Performed by Martinez Mcdowell DO at [facility] LUMPECTOMY BREAST Right 07/26/2018 Performed by Robert Manzo MD at [facility] TUBAL LIGATION Family History: Family History Problem Relation Age of Onset Hypertension Mother Menorrhagia Mother Cancer Father brain Stroke Father Early Father Diabetes type II Father Diabetes Father Hypertension Father Platelet Function Defect Daughter Von Willebrand disease Daughter Epistaxis Son Social History: Social History Socioeconomic History Marital status: Years of education: 14 Occupational History 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: [employer] Tobacco Use Smoking status: Former Current packs/day: 0.00 Average packs/day: 1 pack/day for 15.0 years (15.0 ttl pk-yrs) Types: Cigarettes Start date: 10/19/2000 Quit date: 10/19/2015 Years since quittin.8 Smokeless tobacco: Never Vaping Use Vaping status: Never Used Substance and Sexual Activity Alcohol use: No Drug use: No Sexual activity: Defer Social Drivers of Health Financial Resource Strain: Low Risk (07/24/2025) Received from [facility] Overall Financial Resource Strain (CARDIA) Difficulty of Paying Living Expenses: Not hard at all Food Insecurity: No Food Insecurity (08/12/2025) Hunger Screening Food Insecurity - Worry: Never True Food Insecurity - Inability: Never True Transportation Needs: No Transportation Needs (07/24/2025) Received from [facility] Transportation In the past 12 months, has lack of transportation kept you from medical appointments or from getting medications?: No Lack of Transportation (Non-Medical): Not on file Physical Activity: Insufficiently Active (08/13/2022) Received from [facility] Exercise Vital Sign On average, how many days per week do you engage in moderate to strenuous exercise (like a brisk walk)?: 1 day On average, how many minutes do you engage in exercise at this level?: 20 min Stress: No Stress Concern Present (08/13/2022) Received from [facility] [place] [facility] - Occupational Stress Questionnaire Feeling of Stress : Not at all Social Connections: Socially Integrated (08/13/2022) Received from [facility] Social Connection and Isolation Panel In a typical week, how many times do you talk on the phone with family, friends, or neighbors?: More than three times a week How often do you get together with friends or relatives?: Once a week How often do you attend rastafarian or taoist services?: More than 4 times per year Do you belong to any clubs or organizations such as rastafarian groups, unions, fraternal or athletic groups, or school groups?: Yes How often do you attend meetings of the clubs or organizations you belong to?: More than 4 times per year Are you , , , , never , or living with a partner?: Interpersonal Safety: Unknown (07/24/2025) Received from [facility] Humiliation, Afraid, Rape, and Kick questionnaire Within the last year, have you been afraid of your partner or ex-partner?: No Housing Instability: Low Risk (07/24/2025) Received from [facility] Housing Stability Vital Sign In the last 12 months, was there a time when you were not able to pay the mortgage or rent on time?: No Number of Times Moved in the Last Year: Not on file At any time in the past 12 months, were you homeless or living in a jail (including now)?: No Review of Systems: Review of Systems Physical Exam: ED Triage Vitals [08/12/252201] Temp Heart Rate Resp BP SpO2 36.9 ??C (98.4 ??F) 98 20 (!) 158/97 97 % Temp Source Heart Rate Source Patient Position BP Location FiO2 (%) Oral -- -- -- -- Vitals: 08/12/25220108/13/25 0102 BP: (!) 158/97 149/89 Temp: 36.9 ??C (98.4 ??F) TempSrc: Oral Pulse: 98 90 Resp: 20 18 SpO2: 97% 98% Height: 167.6 cm (5' 6 ) Weight: 74.8 kg (165 lb) 98 Physical Exam Vitals and nursing note reviewed. Constitutional: Appearance: She is well-developed. HENT: Head: Normocephalic and atraumatic. Eyes: Conjunctiva/sclera: Conjunctivae normal. Pupils: Pupils are equal, round, and reactive to light. Cardiovascular: Rate and Rhythm: Normal rate and regular rhythm. Heart sounds: Normal heart sounds. No murmur heard. No friction rub. No gallop. Pulmonary: Effort: Pulmonary effort is normal. No respiratory distress. Breath sounds: Normal breath sounds. Abdominal: General: Bowel sounds are normal. There is no distension. Palpations: Abdomen is soft. Tenderness: There is no abdominal tenderness. There is left CVA tenderness. There is no guarding orrebound. Musculoskeletal: Cervical back: Normal range of motion and neck supple. Skin: General: Skin is warm and dry. Findings: No rash. Neurological: Mental Status: She is alert and oriented to person, place, and time. Procedure: Procedures Re-evaluation: Re-Evaluation Medical Decision Making 44-year-old female presents for left flank pain. Patient woke up with left flank pain around 0300 this morning pain has been persistent throughout the day and does not improve with pain medications including Lynbrook and gabapentin which patient takes for history of chronic pain syndrome of the knee. Patient mentioned she has had prior kidney stones, follows up with Dr. Bautista for urology, has previously required stenting and lithotripsy. Patient has a had decreased oral intake today due to pain and nausea. Denies fever, chills, chest pain, diarrhea, constipation, dysuria, hematuria. Labwork with WBC 7.8, Hgb 11.9, creatinine 0.70, AST 19, ALT 15, bilirubin 0.3, lipase 76. Urinalysis with small leukocyte esterases and large hematuria. CT abdomen/pelvis was negative for acute pathology. Discussed with the patient that symptoms likely related to urinary tract infection, patient will be started on Keflex for treatment. Urine culture sent. Discharged home with return precautions provided, patient agreeable with the plan. 2300: Urinalysis with small leukocyte esterases and large hematuria. Given flank pain, urine culture will be sent and patient will be started on Rocephin for treatment here. Patient will likely be discharged home with Keflex for further treatment. Amount and/or Complexity of Data Reviewed Labs: ordered. Details: Labs notable for: WBC 7.8, Hgb 11.9, creatinine 0.70, AST 19, ALT 15, bilirubin 0.3, lipase 76. Urinalysis with small leukocyte esterases and large hematuria. Radiology: ordered. Details: Imaging was independently viewed and is notable for no acute pathology. However, pending official radiologist read. Risk Prescription drug management. ED Course: Clinical Impressions as of 08/13/252134 Left flank pain Abnormal finding on urinalysis . ED Disposition ED Disposition Discharge Date/Time WedAug 13, 2025 1:07 AM Comment At the time of discharge, the plan has been discussed with the patient regarding the diagnosis and prognosis. All questions have been answered. Verbal discharge instructions were discussed with the patient. The patient has been advised to follow up w ith their Primary Care Provider and Specialist within 1-2 days. The patient was also instructed to return to the ED if their symptoms change, worsen, new symptoms arise or if they have any additional concerns. Medications Prescribed this Visit Sig CEPHalexin (KEFLEX) 500 mg capsule Take 1 capsule (500 mg total) by mouth in the morning and 1 capsule (500 mg total) at noon and 1 capsule (500 mg total) in the evening and 1 capsule (500 mg total) before bedtime. Do all this for 10 days. . Please note that portions of this note were completed with a voice recognition program. Efforts were made to edit the dictations but occasionally words are mis-transcribed. Merlin Rutledge MD 08/12/25 2247 Merlin Rutledge MD 08/12/25 2302 Merlin Rutledge MD 08/13/25 2147 documented in this encounter Plan of Treatment Not on file documented as of this encounter Procedures Procedure NamePriorityDate/TimeAssociated DiagnosisCommentsCT ABDOMEN AND PELVIS WO VHNKFTVW02/02/2025 11:08 PM EST ER EXTRA URINE ESMFIFOHPR78/02/2025 10:37 PM EST ER EXTRA URINE YFBXTQUTBGM48/02/2025 10:37 PM EST ER EXTRA PTVPQPXOK65/02/2025 10:37 PM EST URINE CULTURESTAT Add-on08/12/2025 10:37 PM EST POCT , URINE (NUCG)Dazymtm6308/12/2025 10:34 PM EST POCT NURSING URINE MACROSCOPIC CRUsftmfx26/02/2025 10:33 PM EST CBC WITH AUTO EMOYPJNEBEDAQTYK72/02/2025 10:31 PM EST KYGXNTJPNW70/02/2025 10:31 PM EST COMPREHENSIVE METABOLIC ETYOEFCEO60/02/2025 10:31 PM EST EXTRA TUBES SST PJOJxozgzu83/02/2025 10:30 PM EST EXTRA TUBES BLUE ENGIrzkppf00/02/2025 10:30 PM EST EXTRA WDOZVTotcvfj51/02/2025 10:30 PM EST documented in this encounter Results * CT abdomen and pelvis without contrast (08/12/2025 11:08 PM EST)Anatomical RegionLateralityModalityBody, Abdomen, Body CoveraN/AComputed Tomography Specimen (Source)Anatomical Location / LateralityCollection Method / Volume Collection TimeReceived Time08/12/2025 11:49 PM EST Narrative 08/12/2025 11:[address] ABDOMEN AND PELVIS WITHOUT INTRAVENOUS CONTRAST HISTORY: Left flank pain, vomiting COMPARISON: 05/07/2025 TECHNIQUE: Axial images through the abdomen and pelvis obtained with coronal and sagittal reformatted images. FINDINGS: Visualized lung bases are unremarkable. Status post gastric bypass. Status post cholecystectomy. Spinal stimulator in place. The liver, spleen, adrenal glands, pancreas, and kidneys are unremarkable.The small and large bowel are of normal caliber with no evidence of bowel wall thickening. No free fluid in the abdomen or pelvis. No free intraperitoneal air. Visualized body wall structures are unremarkable. No acute osseous abnormalities or aggressive osseous lesions. IMPRESSION: * ??No acute abnormalities in the abdomen/pelvis. Specifically, no obstructing urinary tract stonesor collecting system dilatation. All CT scans at this facility use dose modulation, iterative reconstruction, and/or weight based dosing when appropriate to reduce radiation dose to as low as reasonably achievable. Finalized by Jeffy Gabriel MD on 08/12/2025 11:52 PM Procedure Note Jeffy Gabriel MD - 08/12/2025 CT ABDOMEN AND PELVIS WITHOUT INTRAVENOUS CONTRAST HISTORY: Left flank pain, vomiting COMPARISON: 05/07/2025 TECHNIQUE: Axial images through the abdomen and pelvis obtained withcoronal and sagittal reformatted images. FINDINGS: Visualized lung bases are unremarkable. Status post gastric bypass. Statuspost cholecystectomy. Spinal stimulator in place. The liver, spleen,adrenal glands, pancreas, and kidneys are unremarkable. The small andlarge bowel are of normal caliber with no evidence of bowel wallthickening. No free fluid in the abdomen or pelvis. No free intraperitoneal air. Visualizedbody wall structures are unremarkable. No acute osseous abnormalities oraggressive osseous lesions. IMPRESSION: * No acute abnormalities in the abdomen/pelvis. Specifically, noobstructing urinary tract stones or collecting system dilatation. All CT scans at this facility use dose modulation, iterativereconstruction, and/or weight based dosing when appropriate to reduceradiation dose to as low as reasonably achievable. Finalized by Jeffy aGbriel MD on 08/12/2025 11:52 PM Authorizing ProviderResult TypeResult Gavin A[place] CT ORDERABLES Final Result * Urine Culture Urine, Clean Catch Midstream (08/12/2025 10:37 PM EST)Component ValueRef RangeTest MethodAnalysis TimePerformed AtPathologist SignatureCULTURE CYXWTAB97-79,000 ORGANISMS/mL NORMAL UROGENITAL FLORA08/14/2025 7:[address] [facility] LABORATORYSpecimen (Source)Anatomical Location / LateralityCollection Method / VolumeCollection TimeReceived TimeUrineUrine specimen collection, clean catch / Ejyddod5008/12/2025 10:37 PM EST08/12/2025 10:43 PM EST Narrative Authorizing ProviderResult TypeResult Gavin Rutledge MDMICROBIOLOGY - GENERAL ORDERABLESFinal ResultPerforming OrganizationAddressCity/State/ZIP Code Phone Number [facility] [address] [place] [address], [place] [phone] * Extra Urine [place] (08/12/2025 10:37 PM EST)ComponentValueRef RangeTest Method Analysis TimePerformed AtPathologist SignatureExtra TubeAuto Resulted 08/13/2025 12:03 AM ESTPROBANNER LASSEN MEDICAL CENTERpecimen (Source) Anatomical Location / LateralityCollection Method / VolumeCollection Time Received TimeUrineUrine specimen collection, clean catch / Zdkaooj6208/12/2025 10:37 PM EST08/12/2025 10:43 PM EST Narrative Authorizing ProviderResult TypeResult Gavin VALENTIN ORDERABLES Final ResultPerforming OrganizationAddressCity/State/ZIP CodePhone Number [facility] [address] [place] [address], * Extra Urine Culture (08/12/2025 10:37 PM EST)ComponentValueRef RangeTest MethodAnalysis TimePerformed AtPathologist SignatureExtra TubeAuto Resulted 08/13/2025 12:[address] [facility] (Source) Anatomical Location / LateralityCollection Method / VolumeCollection Time Received TimeUrineUrine specimen collection, clean catch / Mqwfxll0308/12/2025 10:37 PM EST08/12/2025 10:43 PM EST Narrative Authorizing ProviderResult TypeResult StatusMerlin VALENTIN ORDERABLES Final ResultPerforming OrganizationAddressCity/State/ZIP CodePhone Number [address] [place] [address], [place] * Extra Urine (08/12/2025 10:37 PM EST)ComponentValueRef RangeTest Method Analysis TimePerformed AtPathologist SignatureExtra TubeAuto Resulted 08/13/2025 12:[address] [facility] (Source) Anatomical Location / LateralityCollection Method / VolumeCollection Time Received TimeUrineUrine specimen collection, clean catch / Dhmtixl3508/12/2025 10:37 PM EST08/12/2025 10:43 PM EST Narrative Authorizing ProviderResult TypeResult StatusMerlin VALENTIN ORDERABLES Final ResultPerforming OrganizationAddressty/State/ZIP CodePhone Number [address] [place] [address], [place] * POCT , urine (08/12/2025 10:34 PM EST)ComponentValueRef RangeTest MethodAnalysis TimePerformed AtPathologist SignaturePOC Urine NegativeNegative, Tfbbskgjgawpe64/02/2025 10:[address] [facility] (Source)Anatomical Location / LateralityCollection Method / VolumeCollection TimeReceived FgliPaybv72/02/2025 10:34 PM EST 08/12/2025 10:42 PM EST Narrative Authorizing ProviderResult TypeResult StatusMerlin Rutledge MDPOINT OF CARE TEST ORDERABLESFinal ResultPerforming OrganizationAddressty/State/ZIP CodePhone Number [address] [place] [address], [place] * (ABNORMAL) POCT Nursing Urine Macroscopic UA (08/12/2025 10:33 PM EST) ComponentValueRef RangeTest MethodAnalysis TimePerformed AtPathologist [facility] Urine Specific Gravity1.0201.010, 1.015, 1.020, 1.0322608/12/2025 10:36 PM ESTPROCOMMUNITY MEM[facility]IAL [facility] Urine Leukocyte Esterase Small(A)Zlvcswav83/02/2025 10:36 PM ESTPROMEDIDOCTORS MEDICAL CENTER [facility] Urine UzfvzytQxkwduepEtqqflht18/02/2025 10:36 PM ESTPROCOMMUNITY MEMORIAL [facility] Urine pH8.55.0, 6.0, 6.5, 7.0, 7.5, 8.0, 8.5, 5. 10:36 PM ESTPROCOMMUNITY MEMORIAL [facility] Urine ProteinTrace(A)Negative 08/12/2025 10:36 PM ESTPROCOMMUNITY MEM[facility]IAL [facility] Urine Glucose PuhnjtxuDhiiqred79/02/2025 10:36 PM ESTPROCOMMUNITY MEM[facility] Urine QufaaksNzkrzciqHaudozjf67/02/2025 10:36 PM ESTPROCOMMUNITY MEM[facility] Urine Urobilinogen2.0 E.U./dL08/12/2025 10:36 PM ESTPROCOMMUNITY [facility] Urine AzrrutnlpRxsneqwsNapxorvu56/02/2025 10:36 PM ESTOHIOHE[facility] Urine Blood/HGBLarge(A)Negative 08/12/2025 10:36 PM ESTMCCULLOUGH-HYDE MEMORIAL HOSPITALpecimen (Source) Anatomical Location / LateralityCollection Method / VolumeCollection Time Received IdbxSfnji11/02/2025 10:33 PM EST08/12/2025 10:36 PM EST Narrative Authorizing ProviderResult TypeResult StatusKevin Izabel Rutledge MDPOINT OF CARE TEST ORDERABLESFinal ResultPerforming OrganizationAddressCity/State/ZIP CodePhone Number [facility] [address] [place] [address], [place] * (ABNORMAL) Lipase (08/12/2025 10:31 PM EST)ComponentValueRef RangeTest Method Analysis TimePerformed AtPathologist VuhlocebhBLJOGZ47(H)17 - 40 U/L110/12/2024 10:51 PM ESTMCCULLOUGH-HYDE MEMORIAL HOSPITALpecimen (Source)Anatomical Location / LateralityCollection Method / VolumeCollection TimeReceived Time BloodVenous blood / UnknownVenipuncture / Qnsjcbl2608/12/2025 10:31 PM EST 08/12/2025 10:34 PM EST Narrative Authorizing ProviderResult TypeResult StatusMerlin Rutledge MDLAB BLOOD ORDERABLESFinal ResultPerforming OrganizationAddressCity/State/ZIP CodePhone Number [facility] [address] * (ABNORMAL) Comprehensive metabolic panel (08/12/2025 10:31 PM EST)Component ValueRef RangeTest MethodAnalysis TimePerformed AtPathologist SignatureSODIUM 879714 - 146 mmol/L110/12/2024 10:54 PM [facility] POTASSIUM3.93.5 - 5.0 mmol/L110/12/2024 10:54 PM [facility] SYSTEMCHLORIDE10098 - 109 mmol/L110/12/2024 10:54 PM [facility] SYSTEM[facility] HCUEJPC5062 - 32 mmol/L110/12/2024 10:54 PM EST [facility] XPZ689 - 15 mmol/L110/12/2024 10:54 PM [facility] SYSTEMBLOOD UREA NQBWMGJA940 - 23 mg/dL 08/12/2025 10:54 PM [facility] SYSTEMCREATININE0.700.40 - 1.00 mg/dL08/12/2025 10:54 PM [facility] SYSTEMComment: METHOD TRACEABLE TO IDMS [id number] - 99 mg/dL08/12/2025 10:54 PM EST [facility]CIUM9.28.5 - 10.5 mg/dL08/12/2025 10:54 PM [facility] JACKSONTOTAL PROTEIN8.2(H)6.0 - 8.0 g/dL 08/12/2025 10:54 PM [facility] JACKSONALBUMIN4.43.2 - 5.3 g/dL08/12/2025 10:54 PM [facility] JACKSONALKALINE PNCPGAPGTLU9986 - 130 U/L110/12/2024 10:54 PM [facility]PR[facility]ITALAST19<=41 U/L110/12/2024 10:54 PM [facility]PR[facility]ITALALT15<=31 U/L110/12/2024 10:54 PM [facility]BILIRUBIN,TOTAL0.30.3 - 1.2 mg/dL08/12/2025 10:54 PM [facility] SYSTEMEGFR Non-Race Dependent>90>=60 ml/min/1.73sq.m 08/12/2025 10:54 PM [facility] SYSTEMComment: eGFR not reported due to non-numeric value for Creatinine. Reported eGFR is based on the CKD-EPI 2020 equation that does not use a race coefficient. Specimen (Source)Anatomical Location / LateralityCollection Method / Volume Collection TimeReceived TimeBloodVenous blood / UnknownVenipuncture / Unknown 08/12/2025 10:31 PM EST08/12/2025 10:34 PM EST Narrative Authorizing ProviderResult TypeResult StatusMerlin Rutledge MDLAB BLOOD ORDERABLESFinal ResultPerforming OrganizationAddressCity/State/ZIP CodePhone Number [facility] [address] [place] [address], * (ABNORMAL) CBC auto differential (08/12/2025 10:31 PM EST)ComponentValueRef RangeTest MethodAnalysis TimePerformed AtPathologist SignatureWBC7.84 - 11 x10E9/L110/12/2024 10:43 PM ESTHOLZ[facility] JACKSONRBC Count4.80 3.8 - 5.2 X10E12/L110/12/2024 10:43 PM [facility] Ndafsxlruk77.911.7 - 15.5 g/dL08/12/2025 10:43 PM ESTHOL[facility] JACKSONHematocrit36.935 - 47 %08/12/2025 10:43 PM ESTPROSCRIPPS MEMORIAL HOSPITALMCV77(L)80 - 100 fL08/12/2025 10:43 PM ESTHOL[facility] JACKSONMCH24.8(L)27 - 34 pg08/12/2025 10:43 PM [facility] SYSTEMMCHC32.232 - 36 g/dL08/12/2025 10:43 PM ESTPROSCRIPPS MEMORIAL HOSPITALRDW16.1(H)11.5 - 15 %08/12/2025 10:43 PM [facility] SYSTEMPlatelet Merhx286389 - 450 X10E9/L110/12/2024 10:43 PM ESTHOLZ[facility] JACKSONMPV8.07 - 12 fL08/12/2025 10:43 PM EST [facility]SONNeutrophils %55.7%08/12/2025 10:43 PM EST [facility]FOUNT[facility] MEDICAL CENTERLymphocytes %34.5%08/12/2025 10:43 PM EST [facility]SONMonocytes %8.9%08/12/2025 10:43 PM EST [facility]ITALEosinophils %0.6%08/12/2025 10:43 PM EST [facility]Basophils %0.3%08/12/2025 10:43 PM EST [facility]SONNeutrophils Absolute (A)4.41.5 - 6.6 10*3/uL08/12/2025 10:43 PM ESTPROSCRIPPS MEMORIAL HOSPITALLymphocytes Absolute2.71.0 - 3.5 10*3/uL08/12/2025 10:43 PM ESTPROSCRIPPS MEMORIAL HOSPITALMonocytes Absolute0.70.0 - 0.9 10*3/uL08/12/2025 10:43 PM ESTPROSCRIPPS MEMORIAL HOSPITALEosinophils Absolute0.00.0 - 0.4 10*3/uL08/12/2025 10:43 PM [facility] SYSTEMBasophils Absolute0.00.0 - 0.2 10*3/uL08/12/2025 10:43 PM [facility] SYSTEMDifferential TypeAUTOMATED OWLTBQDOPXCB11/02/2025 10:[address] [facility] (Source)Anatomical Location / LateralityCollection Method / VolumeCollection TimeReceived TimeBloodVenous blood / UnknownVenipuncture / Vbiwgzt5108/12/2025 10:31 PM EST08/12/2025 10:35 PM EST Narrative Authorizing ProviderResult TypeResult StatusMerlin WILHELM BLOOD ORDERABLESFinal ResultPerforming OrganizationAddressCity/State/ZIP CodePhone Number [address] [place] [address], [place] * SST TOP (08/12/2025 10:30 PM EST)ComponentValueRef RangeTest MethodAnalysis TimePerformed AtPathologist SignatureExtra TubeAuto Ussrneaj18/03/2025 12:[address] [facility] (Source)Anatomical Location / LateralityCollection Method / VolumeCollection TimeReceived TimeBloodVenous blood / Jeggact1608/12/2025 10:30 PM EST08/12/2025 10:35 PM EST Narrative Authorizing ProviderResult TypeResult StatusMerlin WILHELM BLOOD ORDERABLESFinal ResultPerforming OrganizationAddressCity/State/ZIP CodePhone Number [address] [place] [address], [place] * Light Blue Top (08/12/2025 10:30 PM EST)ComponentValueRef RangeTest Method Analysis TimePerformed AtPathologist SignatureExtra TubeAuto Resulted 08/13/2025 12:[address] [facility] (Source) Anatomical Location / LateralityCollection Method / VolumeCollection Time Received TimeBloodVenous blood / Otjdish8408/12/2025 10:30 PM EST08/12/2025 10:35 PM EST Narrative Authorizing ProviderResult TypeResult StatusMerlin WILHELM BLOOD ORDERABLESFinal ResultPerforming OrganizationAddressCity/State/ZIP CodePhone Number [facility] [address] [place] [address], documented in this encounter Visit Diagnoses Diagnosis Left flank pain- Primary Abdominal pain, unspecified site Abnormal finding on urinalysis documented in this encounter Administered Medications Medication OrderMAR ActionAction DateDoseRateSite cefTRIAXone (ROCEPHIN) IVPB 1000 mg/50 mL in iso-osmotic dextrose (20 mg/mL premix) 1,000 mg, intravenous, at 100 mL/hr, Administer over 30 Minutes, Once, On 08/12/25 at 2302, For 1 dose, Look-alike/sound-alike medication - verify indication for use. Do not co-administer with calcium-containing solutions such as Lactated Ringers., Indication: UTI New 08/12/2025 11:23 PM EST1,000 mg100 mL/hr morphine injection 4 mg 4 mg, intravenous, Once, On Wed08/12/25 at 2218, For 1 dose, Look-alike/sound-alike medication - verify indication for use. Given08/12/2025 10:31 PM EST4 mg morphine injection 4 mg 4 mg, intravenous, Once, On Wed08/13/25 at 0018, For 1 dose, Look-alike/sound-alike medication - verify indication for use. Given08/13/2025 12:24 AM EST4 mg ondansetron (PF) (ZOFRAN) injection 4 mg 4 mg, intravenous, Once, On 08/12/25 at 2218, For 1 dose, Intravenous administration preferred to be given over 2-5 minutes. Given08/12/2025 10:32 PM EST4 mg ondansetron (PF) (ZOFRAN) injection 4 mg 4 mg, intravenous, Once, On Wed08/13/25 at 0018, For 1 dose, Intravenous administration preferred to be given over 2-5 minutes. Given08/13/2025 12:24 AM EST4 mg sodium chloride 0.9 % bolus 1,000 mL, intravenous, at 984 mL/hr, Administer over 61 Minutes, Once, On 08/12/25 at 2218, For 1 dose New 08/12/2025 10:31 PM EST1,000 mL984 mL/hrdocumented in this encounter Active and Recently Administered Medications Due to Daylight Saving Time, this section may contain times in both EDT and EST. Medication Order//12/2024 cefTRIAXone (ROCEPHIN) IVPB 1000 mg/50 mL in iso-osmotic dextrose (20 mg/mL premix) (COMPLETED) 1,000 mg, intravenous, at 100 mL/hr, Administer over 30 Minutes, Once, On 08/12/25 at 2302, For 1 dose, Look-alike/sound-alike medication - verify indication for use. Do not co-administer with calcium-containing solutions such as Lactated Ringers., Indication: UTI * 2323 (New Bag - Provider: Rigoberto Marquez RN) * 2353 (Stop Bag - Provider: Rigoberto Marquez, MEENA) morphine injection 4 mg (COMPLETED) 4 mg, intravenous, Once, On 08/12/25 at 2218, For 1 dose, Look-alike/sound-alike medication - verify indication for use. * 2231 (Given - Provider: Rigoberto Marquez, MEENA) morphine injection 4 mg (COMPLETED) 4 mg, intravenous, Once, On Wed08/13/25 at 0018, For 1 dose, Look-alike/sound-alike medication - verify indication for use. * 0024 (Given - Provider: Rigoberto Marquez, MEENA) ondansetron (PF) (ZOFRAN) injection 4 mg (COMPLETED) 4 mg, intravenous, Once, On 08/12/25 at 2218, For 1 dose, Intravenous administration preferred to be given over 2-5 minutes. * 2232 (Given - Provider: Rigoberto Marquez, MEENA) ondansetron (PF) (ZOFRAN) injection 4 mg (COMPLETED) 4 mg, intravenous, Once, On Wed08/13/25 at 0018, For 1 dose, Intravenous administration preferred to be given over 2-5 minutes. * 0024 (Given - Provider: Rigoberto Marquez, MEENA) sodium chloride 0.9 % bolus (COMPLETED) 1,000 mL, intravenous, at 984 mL/hr, Administer over 61 Minutes, Once, On 08/12/25 at 2218, For 1 dose * 2231 (New Bag - Provider: iRgoberto aMrquez RN) * 2332 (Stop Bag - Provider: Rigoberto Marquez RN) documented in this encounter Additional Health Concerns AssessmentNoted TimePHQ-9 Depression Total Score: 9:00 AM EDT documented as of this encounter Care Teams Team MemberRelationshipSpecialtyStart DateEnd Date Yasir Ledesma MD PCP - General01/11/25documented as of this encounter
--- OUTSIDE RECORDS SUMMARY | 2025-08-14 10:15 | XMS_ITS | Encounter Summary ---
Author Organization [facility] Healthcare Address [address] [place] [address] Care Team Providers Care Clinical Molecular Geneticist Name Role Phone Unallocated, [facility] Provider Primary Care Provi luc Reason for Referral * Imaging (Routine) - Pending ReviewSpecialtyDiagnoses / ProceduresReferred By ContactReferred To ContactRadiology Diagnoses Internal derangement of right knee Procedures MR knee right wo IV contrast Mando Villasenor PA [address] [place] [address] Phone: tel: fax: [facility] [address] [facility] [address] [place] [address] Referral IDStatusReasonStart DateExpiration DateVisits RequestedVisits [id number]/ Reason for Visit * ReasonCommentsPain Encounter Details DateTypeDepartmentCare Team (Latest Contact Info)Wtabpqsxxmz70/04/2025 10:15 AM ESTOffice Visit [facility] [address] [place] [address] Mando Villasenor PA [address] [place] [address] Acute pain of right knee (Primary Dx); Internal derangement of right knee Social History Tobacco UseTypesPacks/DayYears UsedDateSmoking Tobacco: NeverSmokeless Tobacco: Never Tobacco Cessation:Counseling Given: Not Answered CommentsUnknownSex and Gender InformationValueDate RecordedSex Assigned at BirthNot on fileLegal WxhYhpgzz91/15/2023 6:47 PM EDTGender IdentityNot on fileSexual OrientationNot on filedocumented as of this encounter Last Filed Vital Signs Vital SignReadingTime TakenCommentsBlood Pressure--Pulse--Temperature-- Respiratory Rate--Oxygen Saturation--Inhaled Oxygen Concentration--Xymgfz68.6 kg (160 lb)08/14/2025 10:17 AM JEOMaxyzk570.6 cm (5' 6 )08/14/2025 10:17 AM ESTBody Mass Index25.8208/14/2025 10:17 AM ESTdocumented in this encounter Progress Notes * ADITI Catalan - 08/14/2025 10:15 AM EST Images from the original note were not included. Orthopedic Office note: NAME: Elvi Moore : 1980 (NEW PT) RT KNEE PAIN THAT CONTINUES TO GET WORSE - STATES SHE HAD A FALL 2 MTHS AGO. THEN ~2 WKS AGO SHE WAS GETTING OUT OF THE SHOWER AND HAD A LOUD CRACK. SAME KIND OF PAIN THAT CONTINUES TO INCREASE. XRAY TODAY RT KNEE EPIC 08/14/25 PAIN MGMT -[facility] FOR LT KNEE HX RT KNEE SCOPE 12/21/17 - DR RICHARDSON PAIN MEDIAL AND LATERAL PATELLA. CAN SOMETIMES RADIATE DIFFUSE IN KNEE. OCCAS BURNING/CRAMPING POSTERIOR KNEE. +NORCO 8HR PRN, PREGABALIN. +TYL OR IBU PRN. +VOLTAREN, ICE AND HEAT PRN. +ELEVATING. +BUCKLING, CRACKING, POPPING, GRINDING. LOSING BALANCE, HAS FALLEN TWICE. DENIES N/T. INTERMITTENT SWELLING. WAKES AT HS. STATES IT WILL CRAMP AT NIGHT. WEARS A BRACE AT WORK. CURRENTLY TAKING KEFLEX FOR UTI. HX CEMENT-LESS LT TKA - HAS A SPINAL STIMULATOR DRIVES A FORK LIFT AT WORK. ALLERGIC TO CORTISONE INJECTIONS. Knee Musculoskeletal Exam Gait Gait is normal. Inspection Leg length disparity: no discrepancy Right Erythema: none Effusion: mild Edema: none Ecchymosis: none Deformity: none Alignment: normal Previous incision: arthroscopic portals Incision: well-healed Palpation Right Increased warmth: none Masses: none Crepitus: patellofemoral Tenderness: present Medial joint line: moderate Range of Motion Right Right knee range of motion is normal and full. Active extension: 0 Passive extension: 0 Active flexion: 120 Passive flexion: 125 Range of motion additional comments: + PAIN ON TERMINAL FLEXION AND EXTENSION Strength Right Right knee strength is normal. Extension: 5/5. Extension is affected by pain. Flexion: 5/5. Flexion is affected by pain. Instability Right Instability signs: none - stable Varus stress grade: normal Valgus stress grade: normal Anterior drawer: normal Medial Luz test: positive Neurovascular Right Right knee neurovascular exam is normal. Pulses - PT: normal Posterior tibial: 2+ Capillary refill: warm and well-perfused Special Signs Right Right knee special signs are normal. Patellar apprehension: none General Constitutional: appears stated age Labored breathing: no Psychiatric: normal mood and affect Neurological: alert Skin: intact Lymphadenopathy: none Orders Placed This Encounter Procedures XR knee 1 or 2 views right Is the patient ?: No Reason for exam:: pain Procedures Results ICD-10-CM 1. Acute pain of right knee M25.561 XR knee 1 or 2 views right 2. Internal derangement of right knee M23.91 Assessment & Plan Right knee pain The pain is predominantly localized to the patellofemoral and medial regions of the knee. Symptoms were initially triggered by a fall, during which a popping sensation was experienced in the knee. A similar incident recently occurred, characterized by a popping sensation followed by pain in the medial knee, even though there was no fall. The physical examination suggests a potential medial meniscus tear. Diagnostic plan: An MRI is desired to exclude the possibility of a medial meniscus tear or chondralcontusion. Treatment plan: Ice application and maintaining range of motion will continue, while avoiding deep squatting or rapid pivoting. Due to a history of gastric bypass surgery, daily NSAID use is advised against, although Motrin is taken occasionally. [place] is also used. An implanted spine stimulator, reported as MRI safe and independently deactivatable, is present. Clinical decision making: Given ongoing treatment for chronic regional pain syndrome in the left knee and tolerance to formal physical therapy, formal physical therapy is not of interest until the MRI is performed due to the severity of pain. A discussion about a bone density test with the family doctor is recommended, considering dietary challenges and potential issues with calcium absorption. Follow-up: Re-evaluation will occur following the MRI. PROCEDURE The patient has a history of gastric bypass surgery. Questions answered in laymen terms at the bedside. The diagnosis, home exercise plan and any ongoing restrictions/ recommendations reviewed. If unable to be reached in office, I recommend evaluation at nearest Emergency Room if any symptoms worsened or new symptoms develop for requiring urgent evaluation. Visit was preformed using [employer] pilot speech recognition. documented in this encounter Plan of Treatment DateTypeDepartmentCare Team (Latest Contact Info)Kvagsbvxfpj82/02/2025 10:00 AM ESTOffice Visit [facility] [address] [place] [address] Jr. Horacio Richardson, [address] [address] 03/21/2026 9:00 AM EDTOffice Visit [facility] [address] [place] [address] Eduardo Freedman, [address] [place] [address] NameTypePriorityAssociated DiagnosesOrder ScheduleMR knee right wo IV contrast ImagingRoutine Internal derangement of right knee Expected: 08/14/2025 (Approximate), Expires: 08/14/2026documented as of this encounter Procedures Procedure NamePriorityDate/TimeAssociated DiagnosisCommentsXR KNEE 1-2 VIEWS UFIOYBzumiya16/04/2025 10:22 AM EST Acute pain of right knee documented in this encounter Results * XR knee 1 or 2 views right (08/14/2025 10:22 AM EST)Anatomical Region LateralityModalityLower Extremities, KneeRightRadiographic ImagingSpecimen (Source)Anatomical Location / LateralityCollection Method / VolumeCollection TimeReceived Time Narrative 08/14/2025 10:31 AM EST Imaging Result: AP and Lateral weight bearing: Bones: The bony structures of the knee, including the distal femur, proximal tibia, and patella, appear normal. Stable alignment. ?There are no fractures, dislocations, or bony lesions noted. Prosthesis noted in left knee, but end of stems no visualized. Joint Spaces: The joint spaces are narrowing medially but still preserved and greater than 50% of lateral weight bearing surface. . Spurring noted to medial weight bearing surfaces. Subchondral sclerosis present. Degenerative changes to patella-femoral surface. Soft Tissues: ??trace effusion Impression: ? Degenerative changes to right knee. Authorizing ProviderResult TypeResult StatusMatthew Barb Villasenor PAIMG XR PROCEDURES Final Result documented in this encounter Visit Diagnoses Diagnosis Acute pain of right knee- Primary Internal derangement of right knee documented in this encounter Care Teams Team MemberRelationshipSpecialtyStart DateEnd Date Unallocated, Noms Barbara, [address] [place] [address] PCP - GeneralFamily Mcuhfisi87/3/25documented as of this encounter
--- OUTSIDE RECORDS SUMMARY | 2025-08-14 10:25 | XMS_ITS | Encounter Summary ---
Author Organization [facility] Address [address] [place] [address] Care Team Providers Care Senior Systems Programmer Name Role Phone Unallocated, Noms Provider Primary Care Provi luc Encounter Details DateTypeDepartmentCare Team (Latest Contact Info)Vghbbydfync23/04/2025 10:25 AM ESTAncillary Procedure [facility] [address] [place] [address] Arrived Social History Tobacco UseTypesPacks/DayYears UsedDateSmoking Tobacco: NeverSmokeless Tobacco: NeverCommentsUnknownSex and Gender InformationValueDate RecordedSex Assigned at BirthNot on fileLegal LytBrioap46/15/2023 6:47 PM EDTGender Identity Not on fileSexual OrientationNot on filedocumented as of this encounter Plan of Treatment DateTypeDepartmentCare Team (Latest Contact Info)Gkntesvfyam20/02/2025 10:00 AM ESTOffice Visit [facility] [address] [place] [address] Jr. Horacio Thacker, [address] [facility] [place] [address] 03/21/2026 9:00 AM EDTOffice Visit [facility] OB[facility]RIST[facility] [address] [place] [address] Eduardo Freedman DO [address] [facility] [place] [address] documented as of this encounter Procedures Procedure NamePriorityDate/TimeAssociated DiagnosisCommentsXR KNEE 1-2 VIEWS TJKXUWlrhnic85/04/2025 10:22 AM EST Acute pain of right [...] changes to right knee. Authorizing ProviderResult TypeResult StatusMattsara Villasenor PAI XR PROCEDURES Final Result documented in this encounter Visit Diagnoses Not on filedocumented in this encounter Care Teams Team MemberRelationshipSpecialtyStart DateEnd Date Unallocated, Noms Barbara, [address] [place] [address] PCP - GeneralFamily Aglagsdc29/3/25documented as of this encounter
--- OUTSIDE RECORDS SUMMARY | 2025-08-14 12:28 | XMS_ITS | Clinical Summary ---
Author Organization [facility] Address [address] [place] [address] Care Team Providers Care Ferruler Name Role Phone Unallocated, Noms Provider Primary Care Provi luc Allergies Active AllergyReactionsCriticalityNoted JxvwXopsdgyzYxeduvxw89/31/2021Ketorolac Rash,Shortness of sfqsqqDibq28/19/2015 Other Reaction(s): Unknown Ketorolac JbbjqpoufxnoLvzdWre11/12/2015 Other Reaction(s): Other (See Comments) JulqywyurjVntiZmj01/22/2013 Other Reaction(s): Other (See Comments) Other reaction(s): Unknown Meperidine AivNuswPiu00/09/2025 Other Reaction(s): Unknown HlmszsxllktvpvqzSqdkhpkezzjxhkNxj66/04/2023 Medications MedicationSigDispense QuantityRefillsLast FilledStart DateEnd DateStatus acetaminophen (Tylenol) 500 MG tablet 1,000 mg every 4 (four) hours if neededActive tiZANidine (Zanaflex) 4 MG tablet 2 capsules Orally Q HS for 30 daysActive pregabalin (Lyrica) 75 MG capsule Take 75 mg by mouth in the morning and 75 mg at noon and 75 mg in the evening and 75 mg before bedtime.tive HYDROcodone-acetaminophen ([place]) 7.5-325 MG tablet Take 1 tablet by mouth every 8 (eight) hours if sofffj08tive cephalexin (Keflex) 500 MG capsule Take 500 mg by mouth in the morning and 500 mg at noon and 500 mg in the evening and 500 mg before bedtime.5Active pantoprazole (ProtoNix) 40 MG EC tablet Take 2 tablets by mouth once daily. for 90Active Multiple Vitamin (multivitamin) tablet Take 1 tablet by mouth DailyActive ferrous sulfate 325 (65 Fe) MG tablet Take 325 mg by mouth in the morning. Take with meals.Active calcium 200 MG tablet Take by mouthActive promethazine (Phenergan) 25 MG tablet every 12 (twelve) hoursActive amitriptyline (Elavil) 100 MG tablet 1 tablet Orally at bedtime for 30 daysActive ondansetron ODT (Zofran-ODT) 4 MG disintegrating tablet every 6 (six) hours09/06/2024ctive Active Problems No known active problems Encounters DateTypeDepartmentCare EkxzVvodlrczbbv57/04/2025 10:25 AM ESTAncillary Procedure [facility] [address] Vgcnzxi2708/14/2025 10:15 AM ESTOffice Visit [facility] [place] [address] Mando Villasenor PA Acute pain of right knee (Primary Dx); Internal derangement of right knee08/14/2025amboo flowsheet [address] [place] [address] Mando Villasenor PA 08/14/2025Travelfrom Last 3 Months Social History Tobacco UseTypesPacks/DayYears UsedDateSmoking Tobacco: NeverSmokeless Tobacco: Never Tobacco Cessation:Counseling Given: Not Answered CommentsUnknownSex and Gender InformationValueDate RecordedSex Assigned at BirthNot on fileLegal DcsKmella94/15/2023 6:47 PM EDTGender IdentityNot on fileSexual OrientationNot on file Last Filed Vital Signs Vital SignReadingTime TakenCommentsBlood Iqkfiszo816/72003/19/2025 4:20 PM EDT Pulse--Temperature--Respiratory Rate--Oxygen Saturation--Inhaled Oxygen Concentration--Exmnyv91.6 kg (160 lb)08/14/2025 10:17 AM VOBWbwqnj866.6 cm (5' 6 )08/14/2025 10:17 AM ESTBody Mass Index25.8211 10:17 AM EST Plan of Treatment DateTypeDepartmentCare Team (Latest Contact Info)Bdiwmlcgfnl90/02/2025 10:00 AM ESTOffice Visit [facility] [place] [address] Jr. Horacio Thacker, DO [address] [facility] [address] [place] [address] 03/21/2026 9:00 AM EDTOffice Visit [facility] [address] [place] [place] [address] Eduardo Freedman, DO [address] [facility] [place] [address] Health MaintenanceDue DateLast FdcwInnpoovsCqyqfjwfx38/22/2022COVID-19 Vaccine (2024- season)51, 10/08/2021, 01/30/2021, Additional history existsInfluenza Vaccine (#1)51, 07/11/2020, 07/03/2020, Additional history existsCervical Cancer Lbhipogzw39/09/2030 HPV/Kvpkgj9703/19/2030Pap SmearPneumococcal Vaccine: Pediatrics (0 to 5 Years) and At-Risk Patients (6 to 64 Years)Aged OutNo longer eligible based on patient's age to complete this topic Procedures Procedure NamePriorityDate/TimeAssociated DiagnosisCommentsXR KNEE 1-2 VIEWS CPBLQWxsdwtn34/04/2025 10:22 AM EST Acute pain of right knee PAP HGGOARxnzxfj73/09/2025 12:00 AM EDTfrom Last 3 Months or Most Recently Relevant to Health Maintenance Results * XR knee 1 or 2 [...] changes to right knee. Authorizing ProviderResult TypeResult StatusMattramirow Barb Villasenor PAIMG XR PROCEDURES Final Result * Pap Smear (03/19/2025 12:00 AM EDT)Specimen (Source)Anatomical Location / LateralityCollection Method / VolumeCollection TimeReceived TimeSwabCervical swab / Unknown Narrative Authorizing ProviderResult TypeResult StatusCorey Tano DOLAB CYTOLOGY ORDERABLESFinal ResultPerforming OrganizationAddressCity/State/ZIP CodePhone Number EXTERNAL LAB from Last 3 Months or Most Recently Relevant to Health Maintenance Insurance * Guarantor: Elvi Moore TypeRelation to PatientDate of BirthPhone Billing AddressPersonal/FdtmwxPxvl44/22/1981 [facility] [place] [address] Care Teams Team MemberRelationshipSpecialtyStart DateEnd Date Unallocated, Noms MD Barbara [address] [place] [address] [facility]08/13/25
--- OUTSIDE RECORDS SUMMARY | 2025-08-14 12:28 | XMS_ITS | Clinical Summary ---
Author Organization [employer] tem Address [id number] [address] [place] [address] Care Team Providers Care Body Maker Machine Setter Name Role Phone Yasir Ledesma MD Primary Care Provider [phone] Allergies Active AllergyReactionsCriticalityNoted RsexDirbcedkSpzwzktrqgvcbwlj16/04/2023 NmnpuuuokhCyvlCkb54/30/2492Jmyuqhhx37/31/2021Ketorolac TromethamineRashLow 04/09/2017 Medications MedicationSigDispense QuantityRefillsLast FilledStart DateEnd DateStatus zxseiiwb-khys-WF-calcium &mins (THERAGRAN-M) 9 mg iron-400 mcg tablet Take 1 tablet by mouth in the morning.Active CALCIUM CITRATE ORAL Take 1 tablet by mouth daily.Active ferrous sulfate 325 (65 FE) mg tablet Take 1 tablet (325 mg total) by mouth daily with breakfast.Active pantoprazole (PROTONIX) 20 mg EC tablet Take 2 tablets (40 mg total) by mouth in the morning and 2 tablets (40 mg total) before bedtime.Active hyoscyamine (LEVSIN) 0.[address] 1 tablet (125 mcg total) under the tongue.Active acetaminophen (TYLENOL) 500 mg tablet Take 2 tablets (1,000 mg total) by mouth.Active promethazine (PHENERGAN) 25 mg tablet Take 1 tablet (25 mg total) by mouth every 6 (six) hours as needed for nausea or vomiting.Active amitriptyline (ELAVIL) 10 mg tablet Take 10 mg by mouth nightly.Active lidocaine (LIDODERM) 5 % Place 1 patch on the skin daily as needed for pain (pain) for up to 15 doses. Remove & Discard patch within 12 hours or as directed by MD Schwartz patch 10/02/2022ctive Additional Information Patient not taking.Reported on 01/19/2023 ondansetron ODT (ZOFRAN ODT) 4 mg disintegrating tablet Dissolve 1 tablet (4 mg total) on tongue every 8 (eight) hours as needed for nausea for up to 10 doses. 10 tablet 3Active HYDROcodone-acetaminophen (NORCO) 5-325 mg per tablet Take 1 tablet by mouth every 6 (six) hours as needed for pain. Max Daily Amount: 4 tabletsActive pregabalin (LYRICA) 50 mg capsule Take 1 capsule (50 mg total) by mouth in the morning and 1 capsule (50 mg total) before bedtime.Active CEPHalexin (KEFLEX) 500 mg capsule Take 1 capsule (500 mg total) by mouth in the morning and 1 capsule (500 mg total) at noon and 1 capsule (500 mg total) in the evening and 1 capsule (500 mg total) before bedtime. Do all this for 10 days. 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 S/P gastric ntemzc7206/15/2018Easy vegthyxf59/05/5056Ctvevbkho55/21/2018 Overview (03/29/2018): Passed kidney stone 3 mm [...] add oxybutynin for overactive bladder symptoms Encounters DateTypeDepartmentCare WdacUifxgrikzav67/04/2025Results Follow-Up [facility] [address] [place] [phone] Carmela Scott RN Urine Culture Urine, Clean Catch Hnmnqdtey90/02/2025 9:59 PM EST - 08/13/2025 1:15 AM ESTEmergency [facility] [address] [place] [phone] Merlin Rutledge MD Left flank pain (Primary Dx); Abnormal finding on urinalysis Discharge Disposition: Home08/12/2025Travelfrom Last 3 Months Family History Medical HistoryRelationNameCommentsPlatelet Function DefectDaughterVon Willebrand diseaseDaughterCancerFatherbrainDiabetesFatherDiabetes type IIFather Early deathFatherHypertensionFatherStrokeFatherHypertensionMotherMenorrhagia MotherEpistaxisSonRelationNameStatusCommentsBrotherAliveDaughterFatherDeceased MotherAliveSisterAliveSon Social History Tobacco UseTypesPacks/DayYears UsedDateSmoking Tobacco: SbqvgrKzkbjzklqo972 10/19/2000 - 10/19/2015Smokeless Tobacco: Never Tobacco Cessation:Counseling Given: Not Answered Alcohol UseStandard Drinks/WeekCommentsNo0 (1 standard drink = 0.6 oz pure alcohol)PHQ-2AnswerDate RecordedTotal Fqqda757ChildcareAnswerDate YonbhlpdSjrusqihgFrivpbh34/12/2019EmploymentAnswerDate RecordedEmploymentUnknown 03/22/2019Hunger ScreeningAnswerDate RecordedWithin the past 12 months we worried whether our food would run out before we got money to buy more.Never True08/12/2025Within the past 12 months the food we bought just didn't last and we didn't have money to get more.Never True08/12/2025Purpose - LifeAnswerDate RecordedPurpose and direction in uwrpByficew38/11/2021CommentsNoSex and Gender InformationValueDate RecordedSex Assigned at BirthNot on fileLegal Sex Hqkvsy2505/16/2015 11:21 AM EDTGender IdentityNot on fileSexual OrientationNot on fileOccupationIndustryJob Start DateJob End Datefull timeNot on fileNot on file Not on file Last Filed Vital Signs Vital SignReadingTime TakenCommentsBlood Rvdcjmxq013/8911 1:02 AM EST Kdfnm7270/03/2025 1:02 AM HUZCwlfojfbwnr37.9 ??C (98.4 ??F)08/12/2025 10:02 PM ESTRespiratory Ozqo399110/13/2024 1:02 AM ESTOxygen Ucvsyqrkyg25%08/13/2025 1:02 AM ESTInhaled Oxygen Concentration--Sdwgfv46.8 kg (165 lb)08/12/2025 10:02 PM BNDQeoijt007.6 cm (5' 6 )08/12/2025 10:02 PM ESTBody Mass Index26.6308/12/2025 10:02 PM EST Plan of Treatment Health MaintenanceDue DateLast DoneCommentsDepression Mufljaoaf42/22/1994Adult BMI Follow Up Plan12/31/1999DTaP,Tdap and Td Vaccines (2 - Td or Tdap)07/10/2021 07/10/2011COVID-19 Vaccine ( season), 10/08/2021, 01/30/2021, Additional history existsInfluenza Dztfeek50, 07/11/2020, 07/03/2020, Additional history existsAdult BMI Swsaqbggn44/02/2026 08/12/2025Tobacco Usinxpxfc05Pap YvatoKkeaxgzabydz96/09/2025 Medical Devices Not on file Procedures Procedure NamePriorityDate/TimeAssociated DiagnosisCommentsCT ABDOMEN AND PELVIS WO AUEIHMHB87/02/2025 11:08 PM EST ER EXTRA URINE SJLWRGKIRK61/02/2025 10:37 PM EST ER EXTRA URINE IXORZOGZUIG90/02/2025 10:37 PM EST ER EXTRA PSOSIXKGR18/02/2025 10:37 PM EST URINE CULTURESTAT Add-on08/12/2025 10:37 PM EST POCT , URINE (NUCG)Mjvousn3808/12/2025 10:34 PM EST POCT NURSING URINE MACROSCOPIC XEHgfjotx77/02/2025 10:33 PM EST EBSEQSEFGD46/02/2025 10:31 PM EST COMPREHENSIVE METABOLIC ALWEQRSCE22/02/2025 10:31 PM EST CBC WITH AUTO ICRJFACLIFJNAEXU43/02/2025 10:31 PM EST EXTRA TUBES SST SMLYzyvgyr96/02/2025 10:30 PM EST EXTRA TUBES BLUE FYXNwhmkmd86/02/2025 10:30 PM EST EXTRA AJTJECgerrkh25/02/2025 10:30 PM EST from Last 3 Months Results * CT abdomen and pelvis without [...] Jeffy Gabriel MD on 08/12/2025 11:52 PM Authorizing ProviderResult TypeResult Gavin Rutledge MDST[facility] ORDERABLES Final Result * Extra Urine [place] (08/12/2025 10:37 PM EST)ComponentValueRef RangeTest Method Analysis TimePerformed AtPathologist SignatureExtra TubeAuto Resulted 08/13/2025 12:03 AM ESTPROMEDICA SUTTER [facility]UBURN [facility]ITH [facility]OSPITALpecimen (Source) Anatomical Location / LateralityCollection Method / VolumeCollection Time Received TimeUrineUrine specimen collection, clean catch / Okldjok4508/12/2025 10:37 PM EST08/12/2025 10:43 PM EST Narrative Authorizing ProviderResult TypeResult StatusMerlin VALENTIN ORDERABLES Final ResultPerforming OrganizationAddPottstown Hospitalty/State/ZIP CodePhone Number [address] [place] [address], * Extra Urine Culture (08/12/2025 10:37 PM EST)ComponentValueRef RangeTest MethodAnalysis TimePerformed AtPathologist SignatureExtra TubeAuto Resulted 08/13/2025 12:03 AM [facility] (Source) Anatomical Location / LateralityCollection Method / VolumeCollection Time Received TimeUrineUrine specimen collection, clean catch / Cveodxl7508/12/2025 10:37 PM EST08/12/2025 10:43 PM EST Narrative Authorizing ProviderResult TypeResult StatusMerlin VALENTIN ORDERABLES Final ResultPerforming OrganizationAddressty/State/ZIP CodePhone Number [address] [place] [address], [place] * Extra Urine (08/12/2025 10:37 PM EST)ComponentValueRef RangeTest Method Analysis TimePerformed AtPathologist SignatureExtra TubeAuto Resulted 08/13/2025 12:03 AM [facility] (Source) Anatomical Location / LateralityCollection Method / VolumeCollection Time Received TimeUrineUrine specimen collection, clean catch / Oylmjrn6508/12/2025 10:37 PM EST08/12/2025 10:43 PM EST Narrative Authorizing ProviderResult TypeResult StatusMerlin VALENTIN ORDERABLES Final ResultPerforming OrganizationAddPottstown Hospitalty/State/ZIP CodePhone Number [address] [place] [address], [place] * Urine Culture Urine, Clean Catch Midstream (08/12/2025 10:37 PM EST)Component ValueRef RangeTest MethodAnalysis TimePerformed AtPathologist SignatureCULTURE FIAWTXX49-86,000 ORGANISMS/mL NORMAL UROGENITAL FLORA08/14/2025 7:44 AM EST [facility]ATORYSpecimen (Source)Anatomical Location / LateralityCollection Method / VolumeCollection TimeReceived TimeUrineUrine specimen collection, clean catch / Vevrone4908/12/2025 10:37 PM EST08/12/2025 10:43 PM EST Narrative Authorizing ProviderResult TypeResult StatusMerlin Rutledge MDMICROBIOLOGY - GENERAL ORDERABLESFinal ResultPerforming OrganizationAddressCity/State/ZIP Code Phone Number [facility] [address] [place] [address], [place] [phone] * POCT , urine (08/12/2025 10:34 PM EST)ComponentValueRef RangeTest MethodAnalysis TimePerformed AtPathologist SignaturePO Urine NegativeNegative, Hpynxaftlwzvg35/02/2025 10:42 PM ESTBARNESVILLE HOSPITALpecimen (Source)Anatomical Location / LateralityCollection Method / VolumeCollection TimeReceived HaraAchki83/02/2025 10:34 PM EST 08/12/2025 10:42 PM EST Narrative Authorizing ProviderResult TypeResult StatusMerlin Rutledge MDPOINT OF CARE TEST ORDERABLESFinal ResultPerforming OrganizationAddressCity/State/ZIP CodePhone Number [facility] [address] [place] [address], [place] * (ABNORMAL) POCT Nursing Urine Macroscopic UA (08/12/2025 10:33 PM EST) ComponentValueRef RangeTest MethodAnalysis TimePerformed AtPathologist [facility] Urine Specific Gravity1.0201.010, 1.015, 1.020, 1.5521208/12/2025 10:36 PM ESTPROMEDICOAST [facility]ZA [facility]ITAL Urine Leukocyte Esterase Small(A)Eomnqwbx02/02/2025 10:36 PM ESTPROMEDICOAST PLAZA HOSPITAL Urine MlwlcomJdazjijpQvmqryfl70/02/2025 10:36 PM ESTPROMEDICOAST PLAZA HOSPITAL Urine pH8.55.0, 6.0, 6.5, 7.0, 7.5, 8.0, 8.5, 5. 10:36 PM ESTPROMEDICOAST PLAZA HOSPITAL Urine ProteinTrace(A)Negative 08/12/2025 10:36 PM ESTPROMEDICOAST PLAZA HOSPITAL Urine Glucose FxflxvogUotpkxii49/02/2025 10:36 PM ESTPROMERCY [facility] Urine LksffacIesjzcojJvelkzeu97/02/2025 10:36 PM ESTPROMERCY GENERAL [facility] Urine Urobilinogen2.0 E.U./dL08/12/2025 10:36 PM ESTPROMERCY GENERAL [facility]OSPITAL Urine IkfqolejoTruoqghpTetkkpoh35/02/2025 10:36 PM ESTTR[facility] Urine Blood/HGBLarge(A)Negative 08/12/2025 10:36 PM ESTBARNESVILLE HOSPITALpecimen (Source) Anatomical Location / LateralityCollection Method / VolumeCollection Time Received MmesLujzj55/02/2025 10:33 PM EST08/12/2025 10:36 PM EST Narrative Authorizing ProviderResult TypeResult StatusMerlin Rutledge MDPOINT OF CARE TEST ORDERABLESFinal ResultPerforming OrganizationAddressCity/State/ZIP CodePhone Number [facility] [address] * (ABNORMAL) CBC auto differential (08/12/2025 10:31 PM EST)ComponentValueRef RangeTest MethodAnalysis TimePerformed AtPathologist SignatureWBC7.84 - 11 x10E9/L110/12/2024 10:43 PM [facility]OSPITALRBC Count4.80 3.8 - 5.2 X10E12/L110/12/2024 10:43 PM [facility] Itohhfydzh41.911.7 - 15.5 g/dL08/12/2025 10:43 PM ESTPREMIER HEALTH [facility]I VALLEY HOSPITAL SOUTHHematocrit36.935 - 47 %08/12/2025 10:43 PM [facility]OSPITALMCV77(L)80 - 100 fL08/12/2025 10:43 PM ESTPREMIER HEALTH [facility]I VALLEY HOSPITAL SOUTHMCH24.8(L)27 - 34 pg08/12/2025 10:43 PM [facility]OSPITALMCHC32.232 - 36 g/dL08/12/2025 10:43 PM [facility]OSPITALRDW16.1(H)11.5 - 15 %08/12/2025 10:43 PM [facility] HOSPITALPlatelet Utily169050 - 450 X10E9/L110/12/2024 10:43 PM [facility]OSPITALMPV8.07 - 12 fL08/12/2025 10:43 PM EST [facility] SOUTHNeutrophils %55.7%08/12/2025 10:43 PM EST [facility] SOUTHLymphocytes %34.5%08/12/2025 10:43 PM EST [facility] SOUTHMonocytes %8.9%08/12/2025 10:43 PM EST [facility] HOSPITALEosinophils %0.6%08/12/2025 10:43 PM EST [facility] SOUTHBasophils %0.3%08/12/2025 10:43 PM EST [facility] SOUTHNeutrophils Absolute (A)4.41.5 - 6.6 10*3/uL08/12/2025 10:43 PM [facility] HOSPITALLymphocytes Absolute2.71.0 - 3.5 10*3/uL08/12/2025 10:43 PM [facility]OSPITALMonocytes Absolute0.70.0 - 0.9 10*3/uL08/12/2025 10:43 PM [facility]OSPITALEosinophils Absolute0.00.0 - 0.4 10*3/uL08/12/2025 10:43 PM ESTPREMIER HEALTH [facility]OSPITAL SOUTHBasophils Absolute0.00.0 - 0.2 10*3/uL08/12/2025 10:43 PM [facility]OSPITALDifferential TypeAUTOMATED ISQSWGHAYBIP97/02/2025 10:43 PM [facility]ITALpecimen (Source)Anatomical Location / LateralityCollection Method / VolumeCollection TimeReceived TimeBloodVenous blood / UnknownVenipuncture / Ukfdubs7208/12/2025 10:31 PM EST08/12/2025 10:35 PM EST Narrative Authorizing ProviderResult TypeResult StatusMerlin WILHELM BLOOD ORDERABLESFinal ResultPerforming OrganizationAddressty/State/ZIP CodePhone Number [address] [address], * (ABNORMAL) Lipase (08/12/2025 10:31 PM EST)ComponentValueRef RangeTest Method Analysis TimePerformed AtPathologist QmteodbmxIYLAUP23(H)17 - 40 U/L110/12/2024 10:51 PM ESTPROSOUTHERN INYO HOSPITALpecimen (Source)Anatomical Location / LateralityCollection Method / VolumeCollection TimeReceived Time BloodVenous blood / UnknownVenipuncture / Vrpplwy1408/12/2025 10:31 PM EST 08/12/2025 10:34 PM EST Narrative Authorizing ProviderResult TypeResult StatusMerlin WILHELM BLOOD ORDERABLESFinal ResultPerforming OrganizationAddressty/State/[facility] CodePhone Number [address] [address], [place] * (ABNORMAL) Comprehensive metabolic panel (08/12/2025 10:31 PM EST)Component ValueRef RangeTest MethodAnalysis TimePerformed AtPathologist SignatureSODIUM 839335 - 146 mmol/L110/12/2024 10:54 PM [facility] POTASSIUM3.93.5 - 5.0 mmol/L110/12/2024 10:54 PM ESTPROSAN FRANCISCO GENERAL HOSPITALCHLORIDE10098 - 109 mmol/L110/12/2024 10:54 PM ESTPROSAN FRANCISCO GENERAL HOSPITALCARBON PIJFQNN7201 - 32 mmol/L110/12/2024 10:54 PM EST [facility] SOUTHANION WOL310 - 15 mmol/L110/12/2024 10:54 PM ESTPROSAN FRANCISCO GENERAL HOSPITALBLOOD UREA JCTLIUXH909 - 23 mg/dL 08/12/2025 10:54 PM ESTPROSAN FRANCISCO GENERAL HOSPITALCREATININE0.700.40 - 1.00 mg/dL08/12/2025 10:54 PM ESTPROSAN FRANCISCO GENERAL HOSPITALComment: METHOD TRACEABLE TO IDMS ZHJGRNSUKJIRLWC7225 - 99 mg/dL08/12/2025 10:54 PM EST [facility] SOUTHCALCIUM9.28.5 - 10.5 mg/dL08/12/2025 10:54 PM ESTPREMIER HEALTH [facility] HOSPITAL SOUTHTOTAL PROTEIN8.2(H)6.0 - 8.0 g/dL 08/12/2025 10:54 PM ESTPREMIER HEALTH [facility]AMI [facility]LEY HOSPITAL SOUTHALBUMIN4.43.2 - 5.3 g/dL08/12/2025 10:54 PM [facility]OSPITALALKALINE YTKTBUZZEYZ8028 - 130 U/L110/12/2024 10:54 PM [facility]OS[facility]ITALAST19<=41 U/L110/12/2024 10:54 PM ESTPREMIER HEALTH [facility] HOSPITAL SOUTHALT15<=31 U/L110/12/2024 10:54 PM [facility] HOSPITALBILIRUBIN,TOTAL0.30.3 - 1.2 mg/dL08/12/2025 10:54 PM [facility] HOSPITALEGFR Non-Race Dependent>90>=60 ml/min/1.73sq.m 08/12/2025 10:54 PM [facility]OSPITALComment: eGFR not reported due to non-numeric value for Creatinine. Reported eGFR is based on the CKD-EPI 2020 equation that does not use a race coefficient. Specimen (Source)Anatomical Location / LateralityCollection Method / Volume Collection TimeReceived TimeBloodVenous blood / UnknownVenipuncture / Unknown 08/12/2025 10:31 PM EST08/12/2025 10:34 PM EST Narrative Authorizing ProviderResult TypeResult StatusMerlin WILHELM BLOOD ORDERABLESFinal ResultPerforming OrganizationAddressCity/State/ZIP CodePhone Number [facility] [address] [place] [address], * SST TOP (08/12/2025 10:30 PM EST)ComponentValueRef RangeTest MethodAnalysis TimePerformed AtPathologist SignatureExtra TubeAuto Ubvhfyxj31/03/2025 12:03 AM [facility] (Source)Anatomical Location / LateralityCollection Method / VolumeCollection TimeReceived TimeBloodVenous blood / Mqlwnor8708/12/2025 10:30 PM EST08/12/2025 10:35 PM EST Narrative Authorizing ProviderResult TypeResult StatusMerlin Rutledge MDLAB BLOOD ORDERABLESFinal ResultPerforming OrganizationAddressCity/State/ZIP CodePhone Number [address] [address] * Light Blue Top (08/12/2025 10:30 PM EST)ComponentValueRef RangeTest Method Analysis TimePerformed AtPathologist SignatureExtra TubeAuto Resulted 08/13/2025 12:03 AM [facility] (Source) Anatomical Location / LateralityCollection Method / VolumeCollection Time Received TimeBloodVenous blood / Wpmhlsw4808/12/2025 10:30 PM EST08/12/2025 10:35 PM EST Narrative Authorizing ProviderResult TypeResult StatusMerlin WILHELM BLOOD ORDERABLESFinal ResultPerforming OrganizationAddressty/State/ZIP CodePhone Number [address] from Last 3 Months Insurance Advance Directives * Full Code (Latest Code Status on File) Date ActivatedDate InactivatedCom[facility]01/11/2025 2:55 PM01/11/2025 7:41 PM Care Teams Team MemberRelationshipSpecialtyStart DateEnd Yasir Ledesma MD PCP - General01/11/25
--- OUTSIDE RECORDS SUMMARY | 2025-08-14 12:28 | XMS_ITS | Clinical Summary ---
Author Organization [facility] Address [address] [place], [place] [address] Care Team Providers Care Water Resources Project Manager Name Role Phone Yasir Ledesma MD Primary Care Provider [phone] Allergies Active AllergyReactionsCriticalityNoted XanxHiiidpsnAfbgjtmcrTtdmRzw35/12/2015 QgzwovtdpySrdlFtb03/22/2015 Medications MedicationSigDispense QuantityRefillsLast FilledStart DateEnd DateStatus tiZANidine (ZANAFLEX) 4 mg tablet Take 1 tablet by mouth once daily.ctive sucralfate (CARAFATE) 100 mg/mL suspension Carafate 100 mg/mL oral kvzhhsahrh26/11/2018Active promethazine (PHENERGAN) 25 mg tablet 08/06/2020Active ondansetron orally disintegrating (ZOFRAN ODT) 4 mg disintegrating tablet Take 4 mg by mouth.08/11/2017Active therapeutic multivitamin-minerals (THERA-M PLUS) 9 mg iron-400 mcg tablet Take 1 tablet by mouth.Active hyoscyamine sublingual (LEVSIN SL) 0.125 mg 0.125 mg.Active HYDROcodone-acetaminophen (NORCO) 5-325 mg per tablet 08/06/2020Active ferrous sulfate 325 mg (65 mg iron) tablet 325 mg.08/21/2018Active diclofenac sodium (VOLTAREN) 1 % topical gel diclofenac 1 % topical gelActive cyanocobalamin 1,000 mcg/mL 08/06/2020Active calcium carbonate (CALTRATE) 600 mg calcium (1,500 mg) tab 300 mg.08/21/2018Active acyclovir (ZOVIRAX) 5 % ointment acyclovir 5 % topical ointmentActive acetaminophen (TYLENOL) 500 mg tablet Take 1,000 mg by mouth.Active pantoprazole DR (PROTONIX) 40 mg tablet Take 40 mg by mouth once daily.Active amitriptyline (ELAVIL) 10 mg tablet Take 1 tablet by mouth daily at bedtime. 30 tablet Active Active Problems No known active problems Family History Medical HistoryRelationCommentsThyroidFatherThyroidPaternal AuntDiabetesPaternal GrandmotherHypertensionPaternal GrandmotherThyroidPaternal GrandmotherBreast CancerNo Family HistoryColon CancerNo Family HistoryGYN cancerNo Family History RelationStatusCommentsFatherPaternal AuntPaternal Grandmother Social History Tobacco UseTypesPacks/DayYears UsedDateSmoking Tobacco: FormerSmokeless Tobacco: Never Comments:Quit in Alcohol UseStandard Drinks/WeekCommentsNo0 (1 standard drink = 0.6 oz pure alcohol)Area Deprivation IndexAnswerDate RecordedNational Score (1-100), lower number is lower riskNot on file09/18/2020State Score (1-10), lower number is lower riskNot on file09/18/2020Data from: https://www.neighborhoodatlas.[facility].edu/. Last address used for calculationNot on file09/18/2020CommentsUnknownSex and Gender InformationValueDate RecordedSex Assigned at BirthNot on fileLegal SexFemale 09/11/2012 10:18 AM ESTGender IdentityNot on fileSexual OrientationNot on file Last Filed Vital Signs Vital SignReadingTime TakenCommentsBlood Guvjazrk271/6810 2:41 PM EDT Lpwll253308/07/2020 2:41 PM OSQYyzycyjpycz02.5 ??C (97.7 ??F)08/23/2012 1:06 PM ESTRespiratory Rate--Oxygen Saturation--Inhaled Oxygen Concentration--Xegbud44 kg (141 lb)08/07/2020 2:41 PM FEGRuyfxv286.6 cm (5' 6 )08/07/2020 2:41 PM EDT Body Mass Index22.7608/07/2020 2:41 PM EDT Plan of Treatment Health MaintenanceDue DateLast DoneCommentsAnxiety Ttcxratvr31/22/2000Depression Wawfhlnci91/22/2000HIV Tlviirkav46/22/2000Hepatitis C Losnvjijr14/22/2000 Hepatitis B Vaccine (1 of 3 - 19+ 3-dose series)2000Cervical Cancer Bfqfxntoh35/22/2003HPV Vaccine (1 - 3-dose SCDM series)2008DTaP,Tdap,Td Vaccine (2 - Td or Tdap)Mammogram Xjxoclalt83/22/2022Covid- 19 Vaccine (1 - 2024- season)2025Influenza Vaccine (#1)2025 07/03/2020, 07/18/2019, 07/11/2019, Additional history exists Care Teams Team MemberRelationshipSpecialtyStart DateEnd Date Yasir Ledesma MD PCP - GeneralFamily Dhoarpov36/7/12
--- OUTSIDE RECORDS SUMMARY | 2025-08-14 12:28 | XMS_ITS | Encounter Summary ---
Author Organization [facility] Address [address] [place] [address] Care Team Providers Care Machine Hamper Maker Name Role Phone Unallocated, Noms Provider Primary Care Provi luc Encounter Details DateTypeDepartmentCare Team (Latest Contact Info)Zwabudwwsjv84/04/2025Travel Social History Tobacco UseTypesPacks/DayYears UsedDateSmoking Tobacco: NeverSmokeless Tobacco: NeverCommentsUnknownSex and Gender InformationValueDate RecordedSex Assigned at BirthNot on fileLegal CntYwtywa82/15/2023 6:47 PM EDTGender Identity Not on fileSexual OrientationNot on filedocumented as of this encounter Plan of Treatment DateTypeDepartmentCare Team (Latest Contact Info)Xourudesive85/02/2025 10:00 AM ESTOffice Visit [facility] [address] [place] [phone] Jr. Horacio Thacker DO [address] [address] 03/21/2026 9:00 AM EDTOffice Visit [facility]LESRosalia [place] OBGYSonia [address] [place] [address] Eduardo Freedman DO [address] [place] [address] documented as of this encounter Visit Diagnoses Not on filedocumented in this encounter Care Teams Team MemberRelationshipSpecialtyStart DateEnd Date Unallocated, Noms Barbara [address] [place] [address] PCP - GeneralFamily Qjwvvnqs71/3/25documented as of this encounter
--- OUTSIDE RECORDS SUMMARY | 2025-08-14 12:28 | XMS_ITS | Encounter Summary ---
Author Organization [facility] Address [address] [place] [address] Care Team Providers Care Account Auditor Name Role Phone Unallocated, Noms Provider Primary Care Provi luc Encounter Details DateTypeDepartmentCare Team (Latest Contact Info)Tjwgmpvcwhn30/04/2025amboo flowsheet [facility] [address] [place] [address] Mando Villasenor PA [address] [place] [address] Social History Tobacco UseTypesPacks/DayYears UsedDateSmoking Tobacco: NeverSmokeless Tobacco: NeverCommentsUnknownSex and Gender InformationValueDate RecordedSex Assigned at BirthNot on fileLegal HjmWzyfdi92/15/2023 6:47 PM EDTGender Identity Not on fileSexual OrientationNot on filedocumented as of this encounter Plan of Treatment DateTypeDepartmentCare Team (Latest Contact Info)Gxtmttcajcm85/02/2025 10:00 AM ESTOffice Visit [facility] [address] [place] [address] Jr. Horacio Thacker DO [address] [facility] [place] [address] 03/21/2026 9:00 AM EDTOffice Visit [facility] [address] [place] [address] Eduardo Freedman DO [address] [place] [address] documented as of this encounter Visit Diagnoses Not on filedocumented in this encounter Care Teams Team MemberRelationshipSpecialtyStart DateEnd Date Unallocated, Noms Provider[place] [address] PCP - GeneralFamily Mrjjdowz31/3/25documented as of this encounter
--- OUTSIDE RECORDS SUMMARY | 2025-08-14 12:28 | XMS_ITS | Encounter Summary ---
Author Organization [facility] Address [id number] [address] [place] [address] Care Team Providers Care Diamond Grader Name Role Phone Yasir Ledesma MD Primary Care Provider [phone] Encounter Details DateTypeDepartmentCare Team (Latest Contact Info)Srrhxhaxtpv84/02/2025Travel Social History Tobacco UseTypesPacks/DayYears UsedDateSmoking Tobacco: GgjmzeKugpmbznfv995 10/19/2000 - 10/19/2015Smokeless Tobacco: NeverAlcohol UseStandard Drinks/Week CommentsNo0 (1 standard drink = 0.6 oz pure alcohol)PHQ-2AnswerDate Recorded Total Ggltw702ChildcareAnswerDate DhbeexrwPayroljjpRkwzzhf67/12/2019 EmploymentAnswerDate JafmfkugTubkgrvffbOpsokxg84/12/2019Hunger ScreeningAnswer Date RecordedWithin the past 12 months we worried whether our food would run out before we got money to buy more.Never True08/12/2025Within the past 12 months the food we bought just didn't last and we didn't have money to get more.Never True08/12/2025Purpose - LifeAnswerDate RecordedPurpose and direction in life Khcbcgk67/11/2021CommentsNoSex and Gender InformationValueDate Recorded Sex Assigned at BirthNot on fileLegal OrcHinitu74/06/2015 11:21 AM EDTGender IdentityNot on fileSexual OrientationNot on fileOccupationIndustryJob Start Date Job End Datefull timeNot on fileNot on fileNot on filedocumented as of this encounter Plan of Treatment Not on file documented as of this encounter Visit Diagnoses Not on filedocumented in this encounter Additional Health Concerns AssessmentNoted TimePHQ-9 Depression Total Score: 9:00 AM EDT documented as of this encounter Care Teams Team MemberRelationshipSpecialtyStart DateEnd Date Yasir Ledesma MD PCP - General01/11/25documented as of this encounter
--- OUTSIDE RECORDS SUMMARY | 2025-08-14 12:28 | XMS_ITS | Encounter Summary ---
Author Organization [facility] tem Address [id number] [address] [place] [address] Care Team Providers Care Product Strategy Director Name Role Phone Yasir Ledesma MD Primary Care Provider [phone] Encounter Details DateTypeDepartmentCare Team (Latest Contact Info)Iazjdbntypo51/04/2025Results Follow-Up [facility] [address] [place] [phone] Carmela Scott, MEENA Urine Culture Urine, Clean Catch Midstream Social History Tobacco UseTypesPacks/DayYears UsedDateSmoking Tobacco: ZbzliiVhqojixgrr086 10/19/2000 - 10/19/2015Smokeless Tobacco: NeverAlcohol UseStandard Drinks/Week CommentsNo0 (1 standard drink = 0.6 oz pure alcohol)PHQ-2AnswerDate Recorded Total Njdug343ChildcareAnswerDate HgjkieiwBarjarkspFzzbkdk52/12/2019 EmploymentAnswerDate AznxnuudNpqfebzzvbNlbspzs81/12/2019Hunger ScreeningAnswer Date RecordedWithin the past 12 months we worried whether our food would run out before we got money to buy more.Never True08/12/2025Within the past 12 months the food we bought just didn't last and we didn't have money to get more.Never True08/12/2025Purpose - LifeAnswerDate RecordedPurpose and direction in life Ytllytf39/11/2021CommentsNoSex and Gender InformationValueDate Recorded Sex Assigned at BirthNot on fileLegal RusIglusx24/06/2015 11:21 AM EDTGender IdentityNot on fileSexual OrientationNot [...]
--- OUTSIDE RECORDS SUMMARY | 2025-08-14 12:28 | XMS_ITS | Clinical Summary ---
Author Organization [facility] Address [address] [place] [address] Care Team Providers Care Tele Grout Sewer Line Repairer Name Role Phone Yasir Ledesma MD Primary Care Provider [phone] Tyrel King MD Unavailable Allergies Active AllergyReactionsCriticalityNoted DateCommentsProchlorperazine ZllpcmlkeukantZyd90/04/1515XsrkeagprqYsceGhc60/22/2013 Other reaction(s): Unknown KetorolacShortness of breath,LjksKvtq94/12/2022 Medications MedicationSigDispense QuantityRefillsLast FilledStart DateEnd DateStatus cyanocobalamin, vitamin B-12, 1,000 mcg/mL kit Inject as directed every 30 (thirty) days.Active pantoprazole (ProtoNix) 40 mg EC tablet Take 40 mg by mouth in the morning and at bedtime.10/23/2014ctive diclofenac (Voltaren) 1 % topical gel Apply 1 application. topically if needed in the morning, at noon, in the evening, and at bedtime. TO LEFT KNEE07/06/2019Active calcium carbonate 600 mg calcium (1,500 mg) tablet Take 300 mg by mouth in the morning.08/21/2018Active ferrous sulfate 325 (65 Fe) MG tablet every 12 (twelve) hours.08/21/2018Active multivitamin (Theragran-M) 9 mg iron-400 mcg tablet Take 1 tablet by mouth in the morning.Active ondansetron ODT (Zofran-ODT) 4 mg disintegrating tablet Take 4 mg by mouth every 8 (eight) hours if needed.08/11/2017Active tiZANidine (Zanaflex) 4 mg tablet if needed.08/19/2012ctive acetaminophen (Tylenol) 500 mg tablet 1,000 mg every 4 (four) hours if needed.Active sucralfate (Carafate) 1 gram tablet Take 1 g by mouth if needed.Active promethazine (Phenergan) 25 mg tablet Take 25 mg by mouth every 6 (six) hours if needed for nausea or vomiting.Active amitriptyline (Elavil) 100 mg tablet 100 mg.10/21/2023ctive ibuprofen 400 mg tablet Take 400 mg by mouth.07/17/2024ctive CeleXA 10 mg tablet 1 (one) time each day at the same time.12/01/2024tive fluconazole (Diflucan) 100 mg tablet 09/14/2024ctive hyoscyamine (Anaspaz,Levsin) 0.125 mg tablet 1-2 tabs SL SL every 4 hrs PRN abd pain09/26/2024ctive lisinopril 10 mg tablet 1 (one) time each day at the same time.12/01/2024tive semaglutide (Ozempic) 0.25 mg or 0.5 mg (2 mg/3 mL) pen injector 0.25 mg Subcutaneous weekly for 28 days12/01/2024tive semaglutide, weight loss, (Wegovy) 0.25 mg/0.5 mL pen injector 0.25 mg Subcutaneous weely for 30 days12/06/2024tive triamcinolone (Kenalog) 0.1 % cream 11/12/2024tive ketoconazole (NIZOral) 2 % cream 07/19/2025tive HYDROcodone-acetaminophen (Helvetia) 7.5-325 mg tablet Indications:Chronic, continuous use of opioids,Complex regional pain syndrome type 1 of left lower extremity,Presence of neurostimulatorTake 1 tablet by mouth every 8 (eight) hours if needed for severe pain (8-10 pain score). Do not start before July 28, 2025. 90 tablet /5Active pregabalin (Lyrica) 75 mg capsule Indications:Complex regional pain syndrome type 1 of left lower extremityTake 1 capsule (75 mg) by mouth four times daily. Do not start before July 28, 2025. 120 capsule /5Active HYDROcodone-acetaminophen (Helvetia) 7.5-325 mg tablet Indications:Chronic, continuous use of opioids,Complex regional pain syndrome type 1 of left lower extremity,Presence of neurostimulatorTake 1 tablet by mouth every 8 (eight) hours if needed for severe pain (8-10 pain score). Do not start before June 29, 2025. 90 tablet /Discontinued(Reorder) pregabalin (Lyrica) 50 mg capsule Indications:Complex regional pain syndrome type 1 of left lower extremity,Other chronic postprocedural painTake 2 capsules (100 mg) by mouth two times daily. Do not start before June 29, 2025. 120 capsule /Discontinued(Reorder) pregabalin (Lyrica) 50 mg capsule Indications:Complex regional pain syndrome type 1 of left lower extremity,Other chronic postprocedural painTake 2 capsules (100 mg) by mouth two times daily. Do not start before July 28, 2025. 120 capsule /Discontinued Active Problems ProblemNoted DateDiagnosed DateAKI (acute kidney injury)01/11/2025Neuralgia and qdoeufcw03/09/2025Urinary tract zncuwphjh78/27/2024hronic, continuous use of nsyfjho8207/19/2024GERD (gastroesophageal reflux disease)06/02/2024Iron deficiency anemia following bariatric cqtdexn4806/02/2024Vertebral artery occlusion, unspecified kgscztrinu15/23/2024cute idjupfxjftpf20/22/2024Nausea and vomiting 10/15/20238229Avufq25/05/2024Vaginal bszzkkb67resence of /25/2023omplex regional pain syndrome type 1 of left lower ocpcxuqgv44/28/2023History of total knee arthroplasty, left3Anxiety 07/12/2022rtificial knee joint rctroll4107/12/2022hronic pain07/12/2022Follow-up examination following treatment with high-risk bfalgimcnb67/02/2022Internal derangement of left knee07/12/2022Left flank pain07/12/2022steoarthritis of knee07/12/2022ain in left arm07/12/2022ight medial knee pain07/12/2022ain of left calf07/12/2022es anserinus bursitis of left knee07/12/2022adial styloid yugfafckbdxaf71/02/2022/P left knee nakeachnmtr06/02/2022Inverted nipple 01/08/2021Nipple sszxurnqg77/31/2021Other specified postprocedural states 01/08/2021 Overview (07/12/2022): Added automatically from request for surgery [id number] Pain of right okaeyc5001/08/2021 Overview (07/12/2022): Added automatically from request for surgery [id number] Abdominal pain09/06/2019Platelet function lvtvvw1907/12/2018 Overview (07/12/2022): Delta granule SPD 2.26 Easy ugjdwfxm87/05/2018S/P gastric zsmkxf8406/15/2018Other microscopic hematuria 02/25/2018Kidney stone02/25/20186135Gkeijfjco85/21/2018 Overview (07/12/2022): Passed kidney stone 3 mm [...] member that she may have interstitial cystitis. 6/18 Some improvement with Prelief. Plan to add oxybutynin for overactive bladder symptoms Resolved Problems ProblemNoted DateDiagnosed DateResolved DateDepressive jfgnocgf93/02/2022 01/25/2025Morbid eolcnqr195Acute lower urinary tract infection Encounters DateTypeDepartmentCare VjyyKzfopexvrof28/14/2025 8:20 AM EDTFollow-Up [facility] [address] [place] [address] [place] [phone] Alaina King CNP Complex regional pain syndrome type 1 of left lower extremity (Primary Dx); Presence of neurostimulator; Other chronic postprocedural pain; Neuralgia and neuritis; Chronic, continuous use of xiuovye6706/25/2025[facility] [address] [place] [address] [place] [phone] Alaina King CNP 06/25/2025[facility]ill [facility] [address] [place] [address] [place] [phone] Alaina King CNP Chronic, continuous use of opioids; Complex regional pain syndrome type 1 of left lower extremity; Presence of neurostimulator; Other chronic postprocedural pain05/28/2025Orders Only [facility] [address] [place] [phone] Alaina King CNP 05/28/2025[facility] [address] [place] [address] [place] [phone] Alaina King CNP Chronic, continuous use of opioids; Complex regional pain syndrome type 1 of left lower extremity; Presence of neurostimulator; Other chronic postprocedural painfrom Last 3 Months Family History Medical HistoryRelationNameCommentsCancerFatherRex ShearnKidney cancerMaternal GrandmotherBrain cancerMotherProstate cancerPaternal GrandfatherBreast cancer Sister 1CancerSister 2April WightmanRelationNameStatusCommentsFatherRex Shearn Maternal GrandmotherMotherPaternal GrandfatherSister 1Sister 2April Dayanara Social History Tobacco UseTypesPacks/DayYears UsedDateSmoking Tobacco: FormerCigarettesQuit: 12/18/1997Passive Smoke Exposure: CurrentSmokeless Tobacco: Never Tobacco Cessation:Counseling Given: Not Answered Alcohol UseStandard Drinks/WeekCommentsNever0 (1 standard drink = 0.6 oz pure alcohol)[facility] UtilitiesAnswerDate RecordedIn the past 12 months has the electric, gas, oil, or water company threatened to shut off services in your home?No 12/25/2024Humiliation, Afraid, Rape, and Kick questionnaireAnswerDate Recorded Within the last year, have you been afraid of your partner or ex-partner?No 07/24/2025Emotionally AbusedNot on file07/24/2025Physically AbusedNot on file 07/24/2025Sexually AbusedNot on file07/24/2025Social Connection and Isolation Panel [NHANES]AnswerDate RecordedIn a typical week, how many times do you talk on the phone with family, friends, or neighbors?More than three times a week 08/13/2022How often do you get together with friends or relatives?Once a week 08/13/2022How often do you attend mosque or anabaptism services?More than 4 times per year2Do you belong to any clubs or organizations such as mosque groups, unions, fraternal or athletic groups, or school groups?Yes08/13/2022How often do you attend meetings of the clubs or organizations you belong to?More than 4 times per year08/13/2022re you , , , , never , or living with a partner?Trpvwyf6508/13/2022UDIT-CAnswerDate RecordedQ1: How often do you have a drink containing alcohol?Never08/13/2022Q2: How many drinks containing alcohol do you have on a typical day when you are drinking?Patient does not drink08/13/2022Q3: How often do you have six or more drinks on one occasion?Never08/13/2022verall Financial Resource Strain (CARDIA) AnswerDate RecordedHow hard is it for you to pay for the very basics like food, housing, medical care, and heating?Not hard at all10/14/2025PHQ-2AnswerDate RecordedPatient Health Questionnaire-2 Tstoi396[facility] - Occupational Stress QuestionnaireAnswerDate RecordedDo you feel stress - tense, restless, nervous, or anxious, or unable to sleep at night because yourmind is troubled all the time - these days?Not at all08/13/2022 Exercise Vital SignAnswerDate RecordedOn average, how many days per week do you engage in moderate to strenuous exercise (like a brisk walk)?1 day08/13/2022n average, how many minutes do you engage in exercise at this level?20 min 08/13/2022TransportationAnswerDate RecordedIn the past 12 months, has lack of transportation kept you from medical appointments or from getting medications?No 07/24/2025Lack of Transportation (Non-Medical)Not on file07/24/2025Housing Stability Vital SignAnswerDate RecordedIn the last 12 months, was there a time when you were not able to pay the mortgage or rent on time?No07/24/2025Number of Times Moved in the Last YearNot on file07/24/2025t any time in the past 12 months, were you homeless or living in a fci (including now)?No07/24/2025 Hunger Vital SignAnswerDate RecordedWithin the past 12 months, you worried that your food would run out before you got the money to buymore.Never true07/24/2025 Ran Out of Food in the Last YearNot on file07/24/2025CommentsNoSex and Gender InformationValueDate RecordedSex Assigned at WdsmwZdhmxw82/09/2024 8:01 AM EDTLegal IrwCcvzwu74/30/2022 12:08 AM EDTGender YkzljjmxRsuryl83/09/2024 8:01 AM EDTSexual OrientationDon't know07/19/2024 8:01 AM EDT Last Filed Vital Signs Vital SignReadingTime TakenCommentsBlood Wcpyifti976/8807 3:23 PM EDT Krnxe6608 3:23 PM BZGPlmnvjubnis07.2 ??C (97.2 ??F)04/28/2023 11:20 AM EDTSimultaneous filing. User may not have seen previous data.Respiratory Rate20 12/05/2024 11:30 AM ESTOxygen Krahtxvhep092%04/24/2025 3:23 PM EDTInhaled Oxygen Concentration--Xxhhya70.5 kg (162 lb)07/24/2025 8:17 AM LDTAvnjzg282.6 cm (5' 6 )07/24/2025 8:17 AM EDTBody Mass Index26.151 8:17 AM EDT Plan of Treatment DateTypeDepartmentCare Team (Latest Contact Info)Jdnrtktjeca31/06/2026 8:00 AM ESTFollow-Up [facility] [address] [place] [address] [place] [phone] Alaina King CNP [address] [place] [address] Health MaintenanceDue DateLast DoneCommentsVaricella Vaccines (1 of 2 - 13+ 2- dose series)1994Hepatitis B Vaccines (1 of 3 - 19+ 3-dose series) 2000HPV Vaccines (1 - 3-dose SCDM series)2008HPV/Pzyhjs7312/31/2011 Adult Aujmixa34/8486Tdlkxbbev30/22/2022COVID-19 Vaccine ( season)/, 10/08/2021, 01/30/2021, Additional history existsInfluenza Vaccine (#1)/, 07/11/2020, 07/03/2020, Additional history existsDepression Pvyftvpet57/ervical Cancer Mdwpcreww46/09/2028Pap Smear/06/2025Zoster Vaccines (1 of 2) 2Pneumococcal Vaccine: Pediatrics (0 to 5 Years) and At-Risk Patients (6 to 64 Years)Aged Out03/23/2016No longer eligible based on patient's age to complete this topicHIB VaccinesAged OutNo longer eligible based on patient's age to complete this topicIPV VaccinesAged OutNo longer eligible based on patient's age to complete this topicMeningococcal B VaccineAged OutNo longer eligible based on patient's age to complete this topicMeningococcal VaccineAged OutNo longer eligible based on patient's age to complete this topicRotavirus Vaccines Aged OutNo longer eligible based on patient's age to complete this topic Medical Devices ImplantedTypeAreaManufacturerDevice IdentifierShelf Expiration DateModel / Serial / LotTrial Lead Kit-02/11/2023 Implanted:02/11/2023 by Arjun Miner MD (Quantity not on file)Left: Back [id number]// [id number] / Slim Tip Drg Lead-02/11/2023 Implanted:02/11/2023 by Arjun Miner MD (Quantity not on file)Left: Back [id number]// [id number] / Slim Tip Drg-02/11/2023 Implanted:02/11/2023 by Arjun Miner MD (Quantity not on file)Back [id number]// [id number] / Jackson Drg Ext Pulse Generator 2 Port Header-02/11/2023 Implanted:02/11/2023 by Arjun Miner MD (Quantity not on file)Left: Back [id number]// [id number] / Slimtip Drg Implanted:Qty: 1 on 04/28/2023 [facility] [id number]/06/[id number] / [id number] / Proclaim Drg Implanted:Qty: 1 on 04/28/2023 [facility]: [id number] / [id number] / Description:Part of BuildSlimtip Drg Implanted:Qty: 1 on 04/28/2023 [facility]: [id number]/04/[id number] / [id number] / Description:Part of BuildExplantedTypeAreaManufacturerDevice IdentifierShelf Expiration DateModel / Serial / LotSlimtip Drg Explanted:Qty: 1 on 04/28/2023 by [facility]: [id number]/06/[id number] / [id number] / Description:WAS IMPLANTED AND EXPLANTED DURING CASE Insurance Care Teams Team MemberRelationshipSpecialtyStart DateEnd Date Yasir Ledesma MD [address] [place] [address] PCP - General05/26/22 Tyrel King MD [address] [place] Referring PhysicianGeriatric Medicine11/03/22
--- OUTSIDE RECORDS SUMMARY | 2025-08-14 12:29 | XMS_ITS | Clinical Summary ---
Author Organization [facility] Address [address] [place] [address] Care Team Providers Care Appliance Repairer Name Role Phone Yasir Ledesma MD Primary Care Provider [phone] Allergies Active AllergyReactionsCriticalityNoted JjrkPuqpyqifNchpssdk89/31/2021Ketorolac QdopUsa6505/29/20151955AgyimzdyxkQtasNbw56/22/2013Meperidine Hcl01/08/2021 Medications MedicationSigDispense QuantityRefillsLast FilledStart DateEnd DateStatus multivitamin tablet Take 1 tablet by mouth daily.Active Cyanocobalamin (B-12 COMPLIANCE INJECTION IJ) Inject as directed every 30 days.Active promethazine 25 MG tablet Take 25 mg by mouth every 6 hours as needed for Nausea.Active hydroCODone-acetaminophen 5-325 MG tablet Take 1 tablet by mouth every 4 hours as needed.Active amitriptyline 10 MG tablet daily.01/16/2021ctive sucralfate 1 GM/10ML oral suspension as needed.02/10/2021ctive tiZANidine 4 MG tablet as needed.02/10/2021ctive Calcium Carbonate-Vit D-Min (CALCIUM 1200 PO) Take by mouth daily.Active ferrous sulfate 325 (65 Fe) MG tablet Take 325 mg by mouth daily.Active acetaminophen 325 MG tablet Take 325 mg by mouth every 4 hours as needed.Active pantoprazole Sodium (Protonix) 40 MG Pack Take 40 mg by mouth 2 times daily.Active oxyCODONE-acetaminophen 5-325 MG per tablet Indications:Inverted nippleTake 1 tablet by mouth every 6 hours as needed for Moderate Pain (Use ONLY as needed for pain) for up to 3 days. 5 tablet 02/26/2021ctive Active Problems ProblemNoted DateDiagnosed DateHistory of right breast kmittk7702/06/2021 Overview (02/06/2021): Added automatically from request for surgery [id number] Nipple pain02/06/2021 Overview (02/06/2021): Added automatically from request for surgery [id number] Inverted zfwthl3201/08/2021Hx of right breast lbaydo1801/08/2021ain of right breast 01/08/2021Nipple epbmepxkl84/31/2021 Immunizations ImmunizationAdministration DatesNext DueInfluenza Vaccine, Quadrivalent MDCK PF 07/03/2020Influenza Vaccine, Aqgqrqlcz25/01/2020,09/17/2013Influenza, injectable, quadrivalent, preservative free07/18/2019,07/08/2018Pneumococcal Polysac 23-Valent Trxrvgm7601/01/2016Tdap Biyybqv7607/10/2011 Family History Medical HistoryRelationNameCommentsBreast CancerSisterRelationNameStatusComments Sister Social History Tobacco UseTypesPacks/DayYears UsedDateSmoking Tobacco: FormerCigarettesQuit: 2018Smokeless Tobacco: Never Tobacco Cessation:Ready to Q uit: No; Counseling Given: Yes Alcohol UseStandard Drinks/WeekCommentsNot Currently0 (1 standard drink = 0.6 oz pure alcohol)CommentsNoSex and Gender InformationValueDate RecordedSex Assigned at BirthNot on fileLegal EpdLwgvvq07/03/2013 3:54 PM ESTGender Identity Not on fileSexual OrientationNot on file Last Filed Vital Signs Vital SignReadingTime TakenCommentsBlood Dehfwtrj857/8607 2:39 PM EDT Etpid985904/15/2021 2:39 PM VXWXmykampjjhd31.6 ??C (97.9 ??F)04/15/2021 2:39 PM EDTRespiratory Glww707103/06/2021 3:45 PM EDTOxygen Dwzoxeajrt11%03/06/2021 3:45 PM EDTInhaled Oxygen Concentration--Iauyzh33.5 kg (155 lb 6.4 oz)04/15/2021 2:39 PM HMEKoxjsq898.6 cm (5' 6 )03/06/2021 11:18 AM EDTBody Mass Index25.08 03/06/2021 11:18 AM EDT Plan of Treatment Health MaintenanceDue DateLast DoneCommentsHEPATITIS C VIRUS AKAJTYSZK38/22/1982 HIV SCREENING ZQWGESPKUA68/22/1997HEP B VACCINE (1 of 3 - 19+ 3-dose series) 2000CERVICAL CANCER SCREENING QTDNUWZVVS40/22/2003HPV VACCINE (1 - 3-dose SCDM series)12/30/20087864RHNBCSF43LIPID ROAIOHCPL24/22/2022 MAMMOGRAM SCREENING QUVFVCVWKX84/22/2022OVID-19 VACCINE ( season) , 01/09/2021INFLUENZA VACCINE (#1), 07/03/2020, 07/18/2019, Additional history existsTDAP (ADULT)Ogxmvbytm67/30/2011 PNEUMOCOCCAL VACCINE SERIESAged Out01/01/2016No longer eligible based on patient's age to complete this topic Insurance * Guarantor: Janet Harding TypeRelation to PatientDate of PhoneBilling AddressPersonal/RdigpaMevo77/22/1982 [facility] [place] [address] * Guarantor: Janet Harding TypeRelation to PatientDate of PhoneBilling AddressPersonal/NrtadfUmyg09/22/1982 [facility] [place] [address] Care Teams Team MemberRelationshipSpecialtyStart DateEnd Yasir Ledesma MD [facility] - [facility]/08/21
--- OUTSIDE RECORDS SUMMARY | 2025-08-14 12:29 | XMS_ITS | Patient Health Record ---
Author Organization The [facility] in [place] Address [address] [place] [address] Care Team Providers Care Business Office Assistant Name Role Phone Malachi Ledesma Primary Care Provider Allergies Allergen (clinical drug ingredient) Drug/Non Drug Allergy documented on EMR Reaction Allergy Type Onset Date Status meperidine Demerol Unknown Drug Allergy ActiveCompazinehallucinatingDrug AllergyActiveketorolacKetorolacUnknownDrug AllergyActive Results Component Value Reference Range Notes UA DIP NONAUTO WO MICRO (810 02) - IN OFFICE Reviewed date:08/14/2025 11:58:33 AM Interpretation: Performing Lab: Notes/Report: COLOR Yellow CLARITYClearGLUCOSENegBILIRUBINNegKETONE+SPECIFIC GRAVITY1.622TMCISOurEB4VPKFYIB NegUROBILINOGENNegNITRITENegLEUKOCYTE ESTERASENegUA (URINALYSIS), COMPLETE (52625) - IN OFFICE Reviewed date:08/31/2024 08:03:35 PM Interpretation: Performing Lab: Notes/Report: COLORstrawYELLOW - AMBERCLARITYclearCLEAR - CLEARGLUCOSEnegNEG - NEG MG/DL BILIRUBINnegNEG - NEGKETONESnegNEG - NEG MG/DLSPECIFIC GRAVITY1.0151.001 - 1.035 BLOOD, URLARGENEG - NEG MG/DLPH, UR6.55.0 - 9.3ESDKJLTEZHQRtyl3.2 - 1.0 MG/DL NITRITEnegNEG - NEGPROTEINposWBC, URpos0 - 4 /HPFPROF 14(COMP METB) Reviewed date:01/16/2025 03:11:03 PM Interpretation: Performing Lab: Notes/Report: [facility] ,Iufioj369476-267 mmol/LPotassium4.53.5-5.1 mmol/SWqjqxhot21454-015 mmol/LCarbon Xlniqad38.021.0-32.0 mmol/LAnion Gap9.5Xydmrrp4367-947 mg/dLBlood Urea Nitrogen 17.07.0-18.0 mg/dLCreatinine0.820.55-1.02 mg/dLEstimated GFR ( Grace>60 >=60 mL/min/1.73m 2Estimated GFR (Non- Essence>60>=60 mL/min/1.73m 2BUN Creatinine Ratio20.9Bwldbvq4.98.5-10.1 mg/dLBilirubin Total0.30.2-1.0 mg/dL Aspartate Amino Lherdyuefko1628-05 U/LAlanine Knpyfteiwfcdfaso8892-27 U/L Alkaline Hwgvrhifszk97553-672 U/LTotal Protein6.36.4-8.2 g/dLAlbumin Level3.0 3.4-5.0 g/dLGlobulin3.3Albumin Globulin Ratio0.9Performing Lab:see noteML - [facility] LBCBC AUTO DIFF Reviewed date:08/16/2024 08:58:12 PM Interpretation: Performing Lab: Notes/Report: [facility] ,White Blood Count5.54.0-11.0 10 3/uLRed Blood Count4.444.20-5.40 10 6/uL Zaxtslwxgn68.212.0-16.0 g/vWVyzvwcbilh06.136.0-48.0 %Mean Corpuscular Eishat05.8 81.0-99.0 fLMean Corpuscular Tlfknxuzzg85.526.7-34.0 pgMean Corpuscular HGB Conc 32.029.9-35.2 g/dLRed Cell Distribution Width13.111.0-15.0 %Platelet Ekkxw547 150-450 10 3/uLMean Platelet Volume9.89.5-13.5 fLNeutrophils Percent Auto53.0 43.0-75.0 %Lymphocytes Percent Auto38.720.5-60.0 %Monocytes Percent Auto6.41.7- 12.0 %Eosinophils Percent Auto1.30.9-7.0 %Basophils Percent Auto0.40.2-2.0 % Immature Granulocytes Pct Auto0.20.0-0.5 %Neutrophils Absolute Auto2.91.4-6.5 10 3/uLLymphocytes Absolute Auto2.11.2-3.8 10 3/uLMonocytes Absolute Auto0.40.3-0.8 10 3/uLEosinophils Absolute Auto0.10.0-0.7 10 3/uLBasophils Absolute Auto0.00.0- 0.1 10 3/uLImmature Granulocytes Abs Auto0.010.00-0.03 10 3/uLPerforming Lab:see noteML - [facility] LBUA (CLEAN or CATCH) CUSTOMER RELATIONS REPRESENTATIVE or MICRO IF IND. Reviewed date:08/16/2024 08:58:12 PM Interpretation: Performing Lab: Notes/Report: [facility] ,Color UrineLT. YELLOWYELLOWClarity UrineSL CLOUDYCLEARSpecific Show Low Urine 1.0201.005-1.025pH Urine7.55.0-9.0Protein UrineNEGATIVENEG/TRACE mg/dLGlucose Urine UANEGATIVENEGATIVE mg/dLBilirubin UrineNEGATIVENEGATIVEKetones Urine NEGATIVENEGATIVE mg/dLBlood UrineLARGENEGATIVENitrite UrineNEGATIVENEGATIVE Urobilinogen Urine1.00.2-1.0 EU/dLLeukocyte Esterase UrineLARGENEGATIVEUrine Microscopic IndicatedYESPerforming Lab:see noteML - [facility] LB URINE MICROSCOPIC ONLY Reviewed date:08/16/2024 08:58:12 PM Interpretation: Performing Lab: Notes/Report: [facility] ,WBC Drrau32-20BNBA SEEN #/HPFRBC Edxhe39-858-9 #/HPFBacteria UrineSMALLNONE SEEN #/HPFMucus UrineNONE SEENNONE SEENSquamous Epithelial Cell UrineFEW NONE/RARE #/LPFCrystals Seen?None SeenNone Seen #/HPFCast Seen?NONE SEENNONE SEEN #/LPFUrine Culture IndicatedYESPerforming Lab:see noteML - [facility] LBCT abdomen pelvis wo con Reviewed date:08/16/2024 08:58:12 PM Interpretation: Performing Lab: Notes/Report: Source Facility: [place] [address] CT Scan Report Signed Patient: KRISTINE MOORE MR#: [id number] : 1980 Acct:[id number] Age/Sex: 43 / F ADM Date: 08/16/24 Loc: ER Attending Dr: Ordering Physician: Mouna Dunham D.O. Date of Service: 08/16/24 Procedure(s): CT abdomen pelvis wo con Accession Number(s): [id number] cc: Yasir Ledesma M.D. [place] [address] Patient Name: KRISTINE MOORE MRN: [id number] date: 1980 Sex: F Assigned Patient Location: ER Current Patient Location: ER Accession/Order Number: [id number] Exam Date: 08/16/2024 10:21 Report Date: 08/16/2024 [...] Signed By: 08/16/24 1050 DD/ 1048 TD/TT: Central Office Worker:CBC AUTO DIFF Reviewed date:08/31/2024 08:03:35 PM Interpretation: Performing Lab: Notes/Report: [facility] ,White Blood Count5.84.0-11.0 10 3/uLRed Blood Count4.264.20-5.40 10 6/uL Odnvqxxfwo46.712.0-16.0 g/rXIumytmlhzy86.836.0-48.0 %Mean Corpuscular Cfyzuq17.0 81.0-99.0 fLMean Corpuscular Uxqgqwilpg45.526.7-34.0 pgMean Corpuscular HGB Conc 32.729.9-35.2 g/dLRed Cell Distribution Width13.211.0-15.0 %Platelet Qonug100 150-450 10 3/uLMean Platelet Lmlnzd15.19.5-13.5 fLNeutrophils Percent Auto57.6 43.0-75.0 %Lymphocytes Percent Auto35.620.5-60.0 %Monocytes Percent Auto5.91.7- 12.0 %Eosinophils Percent Auto0.50.9-7.0 %Basophils Percent Auto0.20.2-2.0 % Immature Granulocytes Pct Auto0.20.0-0.5 %Neutrophils Absolute Auto3.41.4-6.5 10 3/uLLymphocytes Absolute Auto2.11.2-3.8 10 3/uLMonocytes Absolute Auto0.30.3-0.8 10 3/uLEosinophils Absolute Auto0.00.0-0.7 10 3/uLBasophils Absolute Auto0.00.0- 0.1 10 3/uLImmature Granulocytes Abs Auto0.010.00-0.03 10 3/uLPerforming Lab:see noteML - [facility] LBLIPASE Reviewed date:08/31/2024 08:03:35 PM Interpretation: Performing Lab: Notes/Report: [facility] ,Fzhpdt86.016.0-77.0 U/LPerforming Lab:see noteML - [facility] LBPROF 14(COMP METB) Reviewed date:08/31/2024 08:03:35 PM Interpretation: Performing Lab: Notes/Report: [facility] ,Lcqohl441497-730 mmol/LPotassium4.43.5-5.1 mmol/ISsuuaojk27167-946 mmol/LCarbon Tbjkvss35.821.0-32.0 mmol/LAnion Gap14.6Jthrttd5226-331 mg/dLBlood Urea Nitrogen 15.07.0-18.0 mg/dLCreatinine0.810.55-1.02 mg/dLEstimated GFR ( Grace>60 >=60 mL/min/1.73m 2Estimated GFR (Non- Essence>60>=60 mL/min/1.73m 2BUN Creatinine Ratio18.5Yakwnpv3.38.5-10.1 mg/dLBilirubin Total0.50.2-1.0 mg/dL Aspartate Amino Gbmkmnasgly5897-12 U/LAlanine Mcuoaavkdfpelbtu1458-88 U/L Alkaline Vuwwyejkhnc41875-165 U/LTotal Protein7.76.4-8.2 g/dLAlbumin Level3.8 3.4-5.0 g/dLGlobulin3.9Albumin Globulin Ratio1.0Performing Lab:see noteML - [facility] LBUA RANDOM W or MICROSCOPIC Reviewed date:08/31/2024 08:03:35 PM Interpretation: Performing Lab: Notes/Report: [facility] ,Color UrineYELLOWYELLOWClarity UrineCLEARCLEARSpecific Show Low Urine1.025 1.005-1.025pH Urine6.05.0-9.0Protein UrineNEGATIVENEG/TRACE mg/dLGlucose Urine UANEGATIVENEGATIVE mg/dLBilirubin UrineNEGATIVENEGATIVEKetones UrineNEGATIVE NEGATIVE mg/dLBlood UrineLARGENEGATIVENitrite UrineNEGATIVENEGATIVEUrobilinogen Urine1.00.2-1.0 EU/dLLeukocyte Esterase UrineTRACENEGATIVEWBC Urine0-2NONE SEEN #/HPFRBC Wjotu73-268-6 #/HPFBacteria UrineTRACENONE SEEN #/HPFMucus UrineNONE SEENNONE SEENSquamous Epithelial Cell UrineRARENONE/RARE #/LPFCrystals Seen?None SeenNone Seen #/HPFCast Seen?NONE SEENNONE SEEN #/LPFUrine Culture IndicatedNO Performing Lab:see noteML - [facility] LBCT abdomen pelvis wo con Reviewed date:08/31/2024 08:03:35 PM Interpretation: Performing Lab: Notes/Report: Source Facility: [place] [address] CT Scan Report Signed Patient: KRISTINE MOORE MR#: [id number] : 1980 Acct:[id number] Age/Sex: 43 / F ADM Date: 08/31/24 Loc: ER Attending Dr: Ordering Physician: Yvette Rubio Date of Service: 08/31/24 Procedure(s): CT abdomen pelvis wo con Accession Number(s): [id number] cc: Yasir Ledesma M.D. [place] [id number] Patient Name: KRISTINE MOORE MRN: [id number] date: 1980 Sex: F Assigned Patient Location: ER Current Patient Location: ER Accession/Order Number: [id number] Exam Date: 08/31/2024 16:30 Report Date: 08/31/2024 [...] By: Peggy Maldonado M.D. Signed By: 08/31/24 1727 DD/ 1717 TD/TT: Central Office Worker:Urine Culture, Routine Reviewed date:10/01/2024 02:08:22 PM Interpretation: Performing Lab: Notes/Report: [facility] ,Urine Culture, RoutineSee Below For Report Urine Culture, Routine Urine Culture, RoutineMixed urogenital cordell Urine Culture, Routine Urine Culture, Bixrhfi09,000-25,000 colony forming units per mL Urine Culture, Routine Urine Culture, RoutinePerformed at: CB - [facility] [place] Urine Culture, Routine Urine Culture, [address] [place], [place] [id number] Urine Culture, Routine Urine Culture, RoutineLab Director: Leandro Queen PhD, Phone: [phone] Urine Culture, Routine Performing Lab:see note LC - [facility] LB SEE REPORT - Convention Planner Id information not found for OBX-specific fire tender legend CBC AUTO DIFF Reviewed date:12/14/2024 08:43:40 PM Interpretation: Performing Lab: Notes/Report: [facility] ,White Blood Count4.84.0-11.0 10 3/uLRed Blood Count4.134.20-5.40 10 6/uL Hudtlyczqd24.412.0-16.0 g/bLBibdujswzy01.636.0-48.0 %Mean Corpuscular Qkbatc97.4 81.0-99.0 fLMean Corpuscular Sdmwxktjrv30.226.7-34.0 pgMean Corpuscular HGB Conc 31.029.9-35.2 g/dLRed Cell Distribution Width15.111.0-15.0 %Platelet Vhqom404 150-450 10 3/uLMean Platelet Volume9.69.5-13.5 fLNeutrophils Percent Auto48.4 43.0-75.0 %Lymphocytes Percent Auto41.520.5-60.0 %Monocytes Percent Auto8.41.7- 12.0 %Eosinophils Percent Auto1.50.9-7.0 %Basophils Percent Auto0.20.2-2.0 % Immature Granulocytes Pct Auto0.00.0-0.5 %Neutrophils Absolute Auto2.31.4-6.5 10 3/uLLymphocytes Absolute Auto2.01.2-3.8 10 3/uLMonocytes Absolute Auto0.40.3-0.8 10 3/uLEosinophils Absolute Auto0.10.0-0.7 10 3/uLBasophils Absolute Auto0.00.0- 0.1 10 3/uLImmature Granulocytes Abs Auto0.000.00-0.03 10 3/uLPerforming Lab:see noteML - [facility] LBFREE T3 Reviewed date:12/14/2024 08:43:40 PM Interpretation: Performing Lab: Notes/Report: [facility] ,Free T32.742.18-3.98 pg/mLPerforming Lab:see note - [facility] LB GLYCOHEMOGLOBIN A1C Reviewed date:12/14/2024 08:43:40 PM Interpretation: Performing Lab: Notes/Report: [facility] ,Glycohemoglobin A1C5.14.5-6.2 % ADA RECOMMENDED LIMIT 4.0 - 6.0 ADA THERAPEUTIC TARGET < 7.0 ACTION SUGGESTED > 7.0 Estimated Average Jgvtsbm515Viaihmfzzb Lab:see noteML - [facility] LB LIPID PROFILE Reviewed date:12/14/2024 08:43:40 PM Interpretation: Performing Lab: Notes/Report: [facility] ,Qoeelcdksxxte37<=150 mg/yGIsqomdepewk230<=200 mg/dLHDL Jzdfnsqsckr9090-46 mg/dL > or =60 mg/dl - LOW CARDIOVASCULAR RISK <40 mg/dl - HIGH CARDIOVASCULAR RISK LDL Cholesterol Pdxtnffzpe42.0 <100 mg/dl OPTIMAL 100-129 mg/dl NEAR OR ABOVE OPTIMAL 130-159 mg/dl BORDERLINE HIGH 160-189 mg/dl HIGH >190 mg/dl VERY HIGH VLDL AXXTPZZAQOF46.2Chol HDL Ratio1.8 3.3 - 4.4 LOW RISK 4.4 - 7.1 AVERAGE RISK 7.1 - 11.0 MODERATE RISK >11.0 HIGH RISK Performing Lab:see noteML - [facility] LBPROF 14(COMP METB) Reviewed date:12/14/2024 08:43:40 PM Interpretation: Performing Lab: Notes/Report: [facility] ,Sdqhmd010605-307 mmol/LPotassium4.73.5-5.1 mmol/FApjamefa05207-517 mmol/LCarbon Uojswya80.021.0-32.0 mmol/LAnion Gap8.7Nrncozr0279-712 mg/dLBlood Urea Nitrogen 15.07.0-18.0 mg/dLCreatinine0.790.55-1.02 mg/dLEstimated GFR ( Grace>60 >=60 mL/min/1.73m 2Estimated GFR (Non- Essence>60>=60 mL/min/1.73m 2BUN Creatinine Ratio19.2Ovpswdm4.28.5-10.1 mg/dLBilirubin Total0.20.2-1.0 mg/dL Aspartate Amino Wbewirpiige4567-46 U/LAlanine Ibjcanvuzqxrefyd6443-84 U/L Alkaline Lmtbaiqrgck55148-159 U/LTotal Protein6.76.4-8.2 g/dLAlbumin Level3.3 3.4-5.0 g/dLGlobulin3.4Albumin Globulin Ratio1.0Performing Lab:see noteML - [facility] LBT4 Reviewed date:12/14/2024 08:43:40 PM Interpretation: Performing Lab: Notes/Report: [facility] ,T4 Thyroxine7.504.80-13.90 ug/dLPerforming Lab:see noteML - [facility] LBTSH Reviewed date:12/14/2024 08:43:40 PM Interpretation: Performing Lab: Notes/Report: [facility] ,Thyroid Stimulating Hormone1.1750.358-3.740 uIU/mLPerforming Lab:see noteML - [facility] Reviewed date:05/07/2025 12:39:41 PM Interpretation: Performing Lab: Notes/Report: [facility] ,Urine Culture - FRMCSee Below For Report Urine Culture - [facility] 50,000 colonies/ml mixed Urine Culture - FRMCbacterial skin contaminants Urine Culture - [facility] 50,000 colonies/ml mixed Urine Culture - [facility]2 Days Urine Culture - [facility] 50,000 colonies/ml mixed Urine Culture - [facility] Urine Culture - [facility] 50,000 colonies/ml mixed Urine Culture - [facility]CTesting [facility] Urine Culture - [facility] 50,000 colonies/ml mixed Urine Culture - [id number] [place] [address] Urine Culture - [facility] 50,000 colonies/ml mixed Performing Lab:see noteML - [facility] LBCT abdomen pelvis w con Reviewed date:09/28/2024 02:46:50 PM Interpretation: Performing Lab: Notes/Report: Source Facility: [place] [address] [place] [address] CT Scan Report Signed Patient: KRISTINE MOORE MR#: [id number] : 1980 Acct:[id number] Age/Sex: 43 / F ADM Date: 09/28/24 Loc: ER Attending Dr: Ordering Physician: Genna Heaton M.D. Date of Service: 09/28/24 Procedure(s): CT abdomen pelvis w con Accession Number(s): [id number] cc: Yasir Ledesma M.D. [place] [id number] Patient Name: KRISTINE MOORE MRN: [id number] date: 1980 Sex: F Assigned Patient Location: ER Current Patient Location: ER Accession/Order Number: [id number] Exam Date: 09/28/2024 01:33 Report Date: 09/28/2024 [...] M.D. Signed By: 09/28/24227 DD/ 5 TD/TT: Central Office Worker:HCG Qualitative Urine Reviewed date:09/28/2024 02:46:50 PM Interpretation: Performing Lab: Notes/Report: [facility] ,HCG Qualitative Urine*NEGATIVENEGATIVEPerforming Lab:see noteML - [facility] LBUA RANDOM W or MICROSCOPIC Reviewed date:09/28/2024 02:46:50 PM Interpretation: Performing Lab: Notes/Report: [facility] ,Color UrineYELLOWYELLOWClarity UrineCLEARCLEARSpecific Show Low Urine1.020 1.005-1.025pH Urine7.55.0-9.0Protein UrineTRACENEG/TRACE mg/dLGlucose Urine UA NEGATIVENEGATIVE mg/dLBilirubin UrineNEGATIVENEGATIVEKetones UrineTRACENEGATIVE mg/dLBlood UrineMODERATENEGATIVENitrite UrineNEGATIVENEGATIVEUrobilinogen Urine 1.00.2-1.0 EU/dLLeukocyte Esterase UrineTRACENEGATIVEWBC Urine5-10NONE SEEN #/HPFRBC Cxkzs75-611-6 #/HPFBacteria UrineSMALLNONE SEEN #/HPFMucus UrineTRACE NONE SEENSquamous Epithelial Cell UrineFEWNONE/RARE #/LPFCrystals Seen?SeenNone Seen #/HPFAmorphous Sediment UrineFEWCast Seen?NONE SEENNONE SEEN #/LPFUrine Culture IndicatedYESPerforming Lab:see noteML - [facility] LBPROF CHEM 8 (BAS METB) Reviewed date:09/28/2024 02:46:50 PM Interpretation: Performing Lab: Notes/Report: [facility] ,Wpzinl800855-343 mmol/LPotassium4.03.5-5.1 mmol/IAzofwqlg46259-069 mmol/LCarbon Gcshziu29.421.0-32.0 mmol/LAnion Gap9.8Cdjjueu5528-537 mg/dLBlood Urea Nitrogen 10.07.0-18.0 mg/dLCreatinine0.770.55-1.02 mg/dLEstimated GFR ( Grace>60 >=60 mL/min/1.73m 2Estimated GFR (Non- Essence>60>=60 mL/min/1.73m 2BUN Creatinine Ratio13.6Pkwlakl3.88.5-10.1 mg/dLPerforming Lab:see noteML - [facility] LBCBC AUTO DIFF Reviewed date:09/28/2024 02:46:50 PM Interpretation: Performing Lab: Notes/Report: [facility] ,White Blood Count6.94.0-11.0 10 3/uLRed Blood Count4.534.20-5.40 10 6/uL Mhrjabtkjz38.912.0-16.0 g/uZXltdjntlwk32.336.0-48.0 %Mean Corpuscular Hgksxg38.5 81.0-99.0 fLMean Corpuscular Xdoahholir89.326.7-34.0 pgMean Corpuscular HGB Conc 31.129.9-35.2 g/dLRed Cell Distribution Width13.711.0-15.0 %Platelet Nofuq596 150-450 10 3/uLMean Platelet Volume9.29.5-13.5 fLNeutrophils Percent Auto50.8 43.0-75.0 %Lymphocytes Percent Auto41.920.5-60.0 %Monocytes Percent Auto5.61.7- 12.0 %Eosinophils Percent Auto1.00.9-7.0 %Basophils Percent Auto0.30.2-2.0 % Immature Granulocytes Pct Auto0.40.0-0.5 %Neutrophils Absolute Auto3.51.4-6.5 10 3/uLLymphocytes Absolute Auto2.91.2-3.8 10 3/uLMonocytes Absolute Auto0.40.3-0.8 10 3/uLEosinophils Absolute Auto0.10.0-0.7 10 3/uLBasophils Absolute Auto0.00.0- 0.1 10 3/uLImmature Granulocytes Abs Auto0.030.00-0.03 10 3/uLPerforming Lab:see note - [facility] LBPROF CHEM 8 (BAS METB) Reviewed date:08/17/2024 07:15:36 PM Interpretation: Performing Lab: Notes/Report: [facility] ,Iaqwfq784668-478 mmol/LPotassium3.93.5-5.1 mmol/DGkusrfvc86127-268 mmol/LCarbon Xgltelh63.221.0-32.0 mmol/LAnion Gap10.7Xemdxko2361-967 mg/dLBlood Urea Nitrogen 10.07.0-18.0 mg/dLCreatinine0.730.55-1.02 mg/dLEstimated GFR ( Grace>60 >=60 mL/min/1.73m 2Estimated GFR (Non- Essence>60>=60 mL/min/1.73m 2BUN Creatinine Ratio13.7Svjqawq1.48.5-10.1 mg/dLPerforming Lab:see noteML - [facility] LBCBC AUTO DIFF Reviewed date:08/17/2024 07:15:36 PM Interpretation: Performing Lab: Notes/Report: [facility] ,White Blood Count3.34.0-11.0 10 3/uLRed Blood Count3.854.20-5.40 10 6/uL Dojksrlruq56.412.0-16.0 g/vKZctgmifkds17.836.0-48.0 %Mean Corpuscular Efikdl51.2 81.0-99.0 fLMean Corpuscular Cpflihwoyb90.026.7-34.0 pgMean Corpuscular HGB Conc 31.729.9-35.2 g/dLRed Cell Distribution Width12.911.0-15.0 %Platelet Tslbb036 150-450 10 3/uLMean Platelet Volume9.79.5-13.5 fLNeutrophils Percent Auto40.3 43.0-75.0 %Lymphocytes Percent Auto50.920.5-60.0 %Monocytes Percent Auto6.41.7- 12.0 %Eosinophils Percent Auto2.10.9-7.0 %Basophils Percent Auto0.30.2-2.0 % Immature Granulocytes Pct Auto0.00.0-0.5 %Neutrophils Absolute Auto1.31.4-6.5 10 3/uLLymphocytes Absolute Auto1.71.2-3.8 10 3/uLMonocytes Absolute Auto0.20.3-0.8 10 3/uLEosinophils Absolute Auto0.10.0-0.7 10 3/uLBasophils Absolute Auto0.00.0- 0.1 10 3/uLImmature Granulocytes Abs Auto0.000.00-0.03 10 3/uLPerforming Lab:see noteML - [facility] LBUrine Culture, Routine Reviewed date:08/19/2024 03:37:19 PM Interpretation: Performing Lab: Notes/Report: [facility] ,Urine Culture, RoutineSee Below For Report Urine Culture, Routine Urine Culture, RoutineCulture shows less than 10,000 colony forming units of bacteria per Urine Culture, Routine Urine Culture, Routinemilliliter of urine. This colony count is not generally considered Urine Culture, Routine Urine Culture, Routineto be clinically significant. Urine Culture, Routine Urine Culture, RoutinePerformed at: - [facility] Urine Culture, Routine Urine Culture, [address] [place], [place] [id number] Urine Culture, Routine Urine Culture, RoutineLab Director: Leandro Queen PhD, Phone: [phone] Urine Culture, Routine Performing Lab:see note LC - [facility] LB SEE REPORT - Convention Planner Id information not found for OBX-specific fire tender legend Blood Culture 2 Reviewed date:08/21/2024 06:30:39 PM Interpretation: Performing Lab: Notes/Report: [facility] ,Blood Culture 2See Below For Report Blood Culture 2 NG5D NO GROWTH AT 5 DAYS. Performing Lab:see noteML - [facility] LBBlood Culture 1 Reviewed date:08/21/2024 06:30:39 PM Interpretation: Performing Lab: Notes/Report: [facility] ,Blood Culture 1See Below For Report Blood Culture 1 NG5D NO GROWTH AT 5 DAYS. Performing Lab:see note - [facility] LBPROF 14(COMP METB) Reviewed date:08/16/2024 08:58:12 PM Interpretation: Performing Lab: Notes/Report: [facility] ,Lpfgaq013656-217 mmol/LPotassium5.23.5-5.1 mmol/HBdoexzno07188-329 mmol/LCarbon Yvqfjpk12.921.0-32.0 mmol/LAnion Gap14.2Yvgqgmb2600-529 mg/dLBlood Urea Nitrogen 16.07.0-18.0 mg/dLCreatinine0.740.55-1.02 mg/dLEstimated GFR ( Grace>60 >=60 mL/min/1.73m 2Estimated GFR (Non- Essence>60>=60 mL/min/1.73m 2BUN Creatinine Ratio21.9Rwxmvor1.88.5-10.1 mg/dLBilirubin Total0.50.2-1.0 mg/dL Aspartate Amino Sqcbwqnvhml6273-42 U/LAlanine Rbgtpbrmstukwoyp7964-69 U/L Alkaline Mcciiivofwj82581-797 U/LTotal Protein7.66.4-8.2 g/dLAlbumin Level3.7 3.4-5.0 g/dLGlobulin3.9Albumin Globulin Ratio0.9Performing Lab:see note - [facility] LBMAGNESIUM Reviewed date:08/16/2024 08:58:12 PM Interpretation: Performing Lab: Notes/Report: [facility] ,Magnesium2.01.8-2.4 mg/dLPerforming Lab:see noteML - [facility] LB LIPASE Reviewed date:08/16/2024 08:58:12 PM Interpretation: Performing Lab: Notes/Report: [facility] ,Qtnrhf75.016.0-77.0 U/LPerforming Lab:see noteML - [facility] LB LACTATE or LACTIC ACID Reviewed date:08/16/2024 08:58:12 PM Interpretation: Performing Lab: Notes/Report: [facility] ,Lactate/Lactic Acid0.90.4-2.0 mmol/LPerforming Lab:see noteML - [facility] LBAMYLASE Reviewed date:08/16/2024 08:58:12 PM Interpretation: Performing Lab: Notes/Report: [facility] ,[id number] U/LPerforming Lab:see noteML - [facility] LBUA DIP NONAUTO WO MICRO (08615) - IN OFFICE (Not yet reviewed by provider) Interpretation: Performing Lab: Notes/Report: HLDYBoblfgSCQYEYJqeqtqRZKDNYFnSWJDFZLCCcQZPRUR7IQRQPODM GRAVITY1.030BLOOD++PH5 CKDYAHD63PULKHLEFRLICvYVKCNZHgETACSBWZO ESTERASEnUA DIP NONAUTO WO MICRO (29537) - IN OFFICE (Not yet reviewed by provider) Interpretation: Performing Lab: Notes/Report: COLORyellowCLARITYclearGLUCOSEnBILIRUBINnKETONE5+SPECIFIC GRAVITY1.030BLOODlarge TG2VLLNYDR94DCHHBCYDYHLJnKNBEAKMkHLKOFOEEC TCBXZDJA48+UA (URINALYSIS), COMPLETE (55335) - IN OFFICE Reviewed date:12/14/2024 08:43:40 PM Interpretation: Performing Lab: Notes/Report: COLORyellowYELLOW - AMBERCLARITYclearCLEAR - CLEARGLUCOSEnegNEG - NEG MG/DL BILIRUBINnegNEG - NEGKETONESneghNEG - NEG MG/DLSPECIFIC GRAVITY1.0101.001 - 1.035BLOOD, URtraceNEG - NEG MG/DLPH, UR75.0 - 9.7UZOFAKGWETWUmkt1.2 - 1.0 MG/DL NITRITEnegNEG - NEGPROTEINtraceWBC, URtrace0 - 4 /HPFIGP,Aptima HPV,Age Gdln Reviewed date:03/25/2025 12:03:27 PM Interpretation: Performing Lab: Notes/Report: BRUSH-SPATULA CERVIX [facility] ,Age Gdln ACOG TestingNote. TESTS RESULT FLAG UNITS REF RANGE LAB Clinician Provided Cytology Information Source.............Cervix No. of containers..01 ThinPrep Vial Age Algo ACOG Yue... FLAG LEGEND: L-Low Normal,H-High Normal,LL-Alert Low,HH-Alert High <-Panic Low,>-Panic High,A-Abnormal,AA-Critical Abnormal Performed at: 01 =[facility] [id number] Rosy Madrigal MD, IGP, Aptima HPV, rfx 16/18,45Note. TESTS RESULT FLAG UNITS REF RANGE LAB DIAGNOSIS: 02 NEGATIVE FOR INTRAEPITHELIAL LESION OR MALIGNANCY. Specimen adequacy: 02 Satisfactory for evaluation. No endocervical component is identified. Performed by: 02 Elizabeth Garza, Retaining Room Cutter (ASCP) . 02 Note: Note 02 The [...] <-Panic Low,>-Panic High,A-Abnormal,AA-Critical Abnormal Performed at: [address] [phone] Rosy Madrigal MD, HPV AptimaNegativeNegative This nucleic acid amplification test detects fourteen high- risk HPV types (16,18,31,33,35,39,45,51,52,56,58,59,66,68) without differentiation. Performed at: =G - [facility] [address] [id number] Cnc Grinder: Rosy Madrigal MD, Phone: [phone] Performed at: - [facility] [id number] Cnc Grinder: Rosy Madrigal MD, Phone: [phone] Performing Lab:see noteLC - [facility] Reason For Referral Diagnosis 1 Low back derangement syndrome (M53.86) Referral Organization [facility] Referring Provider First Name Malachi Referring Provider Last Name Baltazar Referring Provider Speciality Family Med icine Referred Provider [facility], Physical Therap y Referred Provider Specialty Physical Med icine and Rehabilitation Referral Priority Routine Medications Medication SIG (Take, Route, Frequency, Duration) Notes Start Date End Date Status One A Day Women 50 Plus - as directed Orally ActivePantoprazole Sodium 40 MGTake 2 tablets by mouth once daily.; Duration: 90 ActivePregabalin 50 MG1 capsule Orally BIDActivePremarin 0.625 MG/GM0.625 Vaginal Once a day07/05/2023ctiveAmitriptyline HCl 100 MG1 tablet Orally at bedtime; Duration: 30 daysActiveCalcium 600 MG2 tablet with meals Orally Once a dayActiveCarafate 1 GM1 tablet on an empty stomach Orally QIDActiveMeclizine HCl 25 MG1 tablet as needed Orally every 12 hrs05/04/2024ctiveOndansetron 4 MG1 tablet on the tongue and allow to dissolve Orally qid03/12/2025tiveAlbuterol Sulfate (2.5 MG/3ML) 0.083%3 mL as needed Inhalation every 6 hrs12/03/2023ctive Promethazine HCl 25 MG1 suppository as needed Rectal every 6 hrs; Duration: 2 12/13/2024tivePromethazine HCl 25 MG1 tablet as needed Orally q6h; Duration: 30 mtlbVDC9108/13/2023ctiveReglan 10 MG1 tablet as needed Orally every 4 hrs; Duration: 30 01/20/2023ctivetiZANidine HCl 4 MG2 capsules Orally Q HS; Duration: 30 ActiveImitrex 100 MG1 tablet at least 2 hours between doses as needed Orally Twice a day; Duration: 82CYW9608/17/2023ctiveKetoconazole 2 %1 application Externally bid; Duration: 14 07/19/2025tiveTopamax 50 MG1 tablet Orally Once a day; Duration: 30 09/13/2023ctiveTriamcinolone Acetonide 0.1 %1 application Externally Twice a day; Duration: ActiveFlomax 0.4 MG1 capsule Orally Once a day; Duration: 01/12/2025 ActiveHYDROcodone-Acetaminophen 5-325 MG1 tablet as needed Orally BID as needed ([facility])PRNActiveHyoscyamine Sulfate 0.125 MG1-2 tabs SL SL every 4 hrs PRN abd pain12/17/2024ActiveHyoscyamine Sulfate 0.125 MG1-2 tabs SL SL every 4 hrs PRN abd pain5ActiveCeleXA 10 MG1 tablet Orally Once a day; Duration: 30 days5ActiveCyanocobalamin 1000 MCG/ML1 mL Injection once a monthActive Dicyclomine HCl 20 MG1 tablet Orally QID; Duration: 30 days5Active Ferrous Sulfate 325 (65 Fe) MG1 tablet Orally Once a dayActive Social History Tobacco Use: Social History Observation Description Date Details (start date - stop date) Former Smoker 10/11/1997 - 10/11/2018 Tobacco Use/Smoking Question Answer Notes Patient is a former smoker When did you start smoking?10/11/1997When did you stop smoking?10/11/2018How long has it been since you last smoked?1-5 yearsAlcohol Screen (Audit-C) Question Answer Notes Did you have a drink containing alcohol in the p ast year? No Ccvbsv3SxzsazvmqmkuufOdrtchxjAXPPK-Q (Standard) Question Answer Notes Did you have a drink containing alcohol in the p ast year? No Hdxcxp2XyjgelotbryxjiAtstbpjy Problems Problem Type SNOMED Code ICD Code Onset Dates Problem Status W/U Status Risk Notes Problem Iron deficiency anemia (33308778 ) Iron deficiency anemia, unspecified (D50.9) ActiveconfirmedProblemDehydration (25845813)Dehydration (E86.0)Activeconfirmed ProblemOtitis externa (8134972)Unspecified otitis externa, unspecified ear (H60.90)ActiveconfirmedProblemMarginal perforation of tympanic membrane (17395138)Other marginal perforations of tympanic membrane, left ear (H72.2X2) ActiveconfirmedProblemAcute frontal sinusitis (37013399)Acute recurrent frontal sinusitis (J01.11)ActiveconfirmedProblemContracture of ankle joint (disorder) (451915862)Contracture, unspecified ankle (M24.573)ActiveconfirmedProblem Cystitis (42289019)Other cystitis without hematuria (N30.80)Activeconfirmed ProblemSprain of lateral collateral ligament of knee (45716000)Sprain of lateral collateral ligament of left knee, initial encounter (S83.422A)Activeconfirmed ProblemAdverse reaction caused by drug (disorder) (24908315)Adverse effect of unspecified drugs, medicaments and biological substances, initial encounter (T50.905A)ActiveconfirmedProblemExposure to communicable disease (710096164) Contact with and (suspected) exposure to other viral communicable diseases (Z20.828)ActiveconfirmedProblemHistory of urinary disease (281067692)Personal history of other diseases of urinary system (Z87.448)ActiveconfirmedProblem Hypertension (15939492)Hypertension (I10)ActiveconfirmedProblemOsteoarthritis (569762412)Osteoarthritis (M19.90)ActiveconfirmedProblemGastroesophageal reflux disease (674258271)GERD (gastroesophageal reflux disease) (K21.9)Activeconfirmed ProblemVertigo (995766535)Vertigo (R42)ActiveconfirmedProblemInsomnia (780185505)Insomnia (G47.00)ActiveconfirmedProblemHiatal hernia (50703897)Hiatal hernia (K44.9)ActiveconfirmedProblemKnee pain (8439910470)Knee pain (M25.569) ActiveconfirmedProblemDischarge from right nipple (36717725739680197)Discharge from right nipple (N64.52)ActiveconfirmedProblemMigraine (62717698)Migraine (G43.909)ActiveconfirmedProblemKidney stone (85486612)Kidney stone (N20.0)Active confirmedProblemColitis (10424797)Colitis (K52.9)ActiveconfirmedProblemVaginitis (71177113)Vaginitis (N76.0)ActiveconfirmedProblemUrticaria (742961220)Urticaria (L50.9)ActiveconfirmedProblemWell adult (909607931)Well adult (Z00.00)Active confirmedProblemAcute kidney injury (33356995)Acute kidney injury (N17.9)Active confirmedProblemHypoglycemia (285151368)Hypoglycemia (E16.2)Activeconfirmed ProblemPre-surgery evaluation (648283771)Pre-op exam (Z01.818)Activeconfirmed ProblemPain in limb (60047112)Arm pain, left (M79.602)ActiveconfirmedProblem Diverticulitis (48341457)Diverticulitis (K57.92)ActiveconfirmedProblemOtitis media of left ear (3396253559182170)Otitis media of left ear (H66.92)Active confirmedProblemPlantar fasciitis (541969878)Plantar fasciitis (M72.2)Active confirmedProblemPyelonephritis (71442655)Pyelonephritis (N12)Activeconfirmed ProblemAcute gastric ulcer (63374998)Acute gastric ulcer (K25.3)Activeconfirmed ProblemSeasonal allergic rhinitis (456986409)Allergic rhinitis, seasonal (J30.2) ActiveconfirmedProblemIron deficiency anemia (00881765)Anemia, iron deficiency (D50.9)ActiveconfirmedProblemCommon migraine (69928610)Common migraine (G43.009) ActiveconfirmedProblemMicrocytic anemia (886205607)Microcytic anemia (D50.9) ActiveconfirmedProblemDiverticular disease (838746284)Diverticular disease (K57.90)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 artery occlusion, 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) ActiveconfirmedProblemVaginal dryness (59389963)Vaginal dryness (N89.8)Active confirmedProblemPeripheral vertigo (59952918)Vertigo, peripheral (H81.399)Active confirmedProblemCobalamin deficiency (388224453)Cobalamin deficiency (E53.8) ActiveconfirmedProblemEssential hypertension (85982952)BP (high blood pressure) (I10)ActiveconfirmedProblemOvarian cyst (35784513)Cyst, ovarian (N83.209)Active confirmedProblemDisorder of sacrum (25944908)Low back derangement syndrome (M53.86)ActiveconfirmedProblemGastrojejunal ulcer (67790262)Gastrojejunal ulcer (K28.9)ActiveconfirmedProblemHistory of artificial joint (830014388)Joint replaced (Z96.60)ActiveconfirmedProblemInversion of right nipple (81250030521637710)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 9 and Diverticulitis K57.[address] [address] 08/16/2024 Malachi Hoy Gastroenteritis K52. [address] [address] 08/23/2024 Malachi Hoy Dehydration E86.0 an d Vaginitis N76.[address] [address] 08/31/2024 Malachi Hoy Gastroenteritis K52. 9 and Flank pain R10.[address] [address] 09/05/2024 Malachi Hoy Low back derangement syndrome M53.[address] [address] 09/19/2024 Malachi Hoy Acute bronchitis, unspecified organism J20.[address] [address] 09/26/2024 Malachi Hoy Gastroenteritis K52. 9 [facility] [address] [place] [address] 09/27/2024 Malachi Hoy Nausea & vomiting R1 1.2 [facility] [address] [place] [address] 10/23/2024 Malachi Hoy Gastroenteritis K52. 9 [facility] [address] [place] [address] 10/26/2024 Malachi Hoy Gastroenteritis K52. 9 [address] Urinary frequency R35.0 [facility] [address] [place] [address] 12/01/2024 Malachi Hoy Hypertension I10 ; A cute gastric ulcer K25.3 ; Hypoglycemia E16.2 ; GERD (gastroesophageal reflux disease) K21.[address] [facility] [address] [place] [address] 12/07/2024 Malachi Hoy Nephrolithiasis N20. 0 and Well adult Z00.00 [address] [place] [address] 12/11/2024 Malachi Hoy Nephrolithiasis N20. 0 [address] [place] [address] 12/13/2024 Malachi Hoy Dehydration E86.0 [address] [place] [address] 12/21/2024 Malachi Hoy Dehydration E86.0 an d Nephrolithiasis N20.0 [facility] [address] [place] [address] 01/12/2025 Malachi Hoy Nephrolithiasis N20. 0 [facility] [address] [place] [address] 01/16/2025 Malachi Hoy Acute kidney injury N17.9 [facility] [address] [place] [address] 03/12/2025 Malachi Hoy UTI (urinary tract infection), uncomplicated N39.0 ; Dysuria R30.[address] [facility] [address] [facility] [place] [address] 05/04/2025 Malachi Hoy Dehydration E86.0 an d Kidney stone N20.0 [facility] [address] [facility] [place] [address] 05/31/2025 Malachi Hoy Flank pain R10.9 ; S yncope R55 and Hyperglycemia R73.9 [facility] [address] [facility] [place] [address] 06/07/2025 Malachi Hoy UTI (urinary tract infection), uncomplicated N39.[address] [facility] [address] [facility] [place] [address] 07/19/2025 Malachi Hoy Abdominal pain R10.9 and Kidney stone N20.0 [facility] [address] [facility] [place] [address] 08/14/2025 Malachi Hoy Flank pain R10.9 ; U TI (urinary tract infection), uncomplicated N39.0 ; Dysuria R30.0 and Joint replaced Z96.60 [facility] [address] [facility] [address] 08/17/[address] [facility] [facility] [place] [address] 08/31/2024oug HoyOtitis media of left ear H66.92[facility] [address] [place] [place] [address]/oug HoyMigraine G43.909 [facility] [facility] [place] [address] 09/22/2024oug HoyDehydration E86.0[facility] [facility] [place] [address]/oug [facility] [address] [facility] [address]/Doug [facility]BV[facility] [place] [facility] [place] [address]/Doug y [address] [facility] [place] [address] 12/13/2024Doug [facility] [facility] [place] [address]/03/2025Doug [facility] [facility] [place] [address]/Doug [facility] [facility] [place] [address]/05/2025Doug [facility] [facility] [place] [facility] [place] [address]/Doug HoyDehydration E86.0[address] [facility] [place] [address] 04/20/2025Doug HoyNephrolithiasis N20.0[address] [facility] [place] [address]/Doug [facility] [facility] [place] [address]/01/2025Doug Tariky Assessments Encounter Date Diagnosis (ICD Code) Assessment Notes Treatment Notes Treatment Clinical Notes Section Notes 08/14/2024 Diverticulitis (ICD-10 - K57.92) 08/14/2024Gastroenteritis (ICD-10 - K52.9)Get plenty of rest. Stay hydrated by sucking on ice chips or taking small sips of water. You can also try drinking clear soda, clear broths or noncaffeinated sports drinks. Stop eating solid foods for a few hours to let your stomach settle. East back into eating by eating bland, fqfz-id-lqixna foods like crackers, toast, gelatin, bananas, rice and chicken. Try to avoid foods/substances including dairy products, caffeine, alcohol, nicotine and fatty or highly seasoned foods. Medications such as i buprofen or tylenol can make your stomach more upset, so use sparingly if at all. Also avoid uoci-max-tlotdon anti-diarrheal medications because it can make it harder for your body to eliminate the virus.08/16/2024Gastroenteritis (ICD-10 - K52.9)Get plenty of rest. Stay hydrated by sucking on ice chips or taking small sips of water. You can also try drinking clear soda, clear broths or noncaffeinated sports drinks. Stop eating solid foods for a few hours to let your stomach settle. East back into eating by eating bland, ijwg-xy-dgvqdd foods like crackers, toast, gelatin, bananas, rice and chicken. Try to avoid foods/substances including dairy products, caffeine, alcohol, nicotine and fatty or highly seasoned foods. Medications such as ibuprofen or tylenol can make your stomach more upset, so use sparingly if at all. Also avoid bzdf-vjp-rzyuqkr anti-diarrheal medications because it can make it harder for your body to eliminate the virus.08/23/2024ehydration (ICD-10 - E86.0)08/23/2024Vaginitis (ICD-10 - N76.0)08/31/2024Flank pain (ICD-10 - R10.9)08/31/2024Gastroenteritis (ICD-10 - K52.9)pomethazine here if not better - ER09/05/2024Low back derangement syndrome (ICD-10 - M53.86)09/19/2024cute bronchitis, unspecified organism (ICD-10 - J20.9)Rest and drink more liquids, especially water. You may use a humidifier or vaporizer to help keep the drainage moist. Havg-ryn-rzatfej Nasal Saline may help the stuffy and runny nose. Use Ibuprofen and or Tylenol as needed for fever, chills, body aches or pain. Children 5 years old should not be given dqxz-kho-seplznt cough and cold medications such as guaifenesin and dextromethorphan. If you're over age 5, you may try ajlr-jef-ylbndau cold medications such as guaifenesin and dextromethorphan, or multi-symptom cold reliever such as Dayquil to help reduce the symptoms. Antibiotics have been pre scribed. You should take these until completed and follow the directions. Antibiotics can sometimescause upset stomach, and in rare cases, serious allergic reactions or serious gastrointestinal problems. If you start having severe abdominal pain, severe vomiting, or bloody diarrhea, you should be r eevaluated by your physician or urgent care immediately. Follow up with your Primary Care Provider or return to clinic if symptoms do not improve within 3-5 days. If you develop severe symptoms such as shortness of breath, repeated vomiting, coughing up blood, or chest pain you should go to the emergency room or call [id number]/Gastroenteritis (ICD-10 - K52.9)Get plenty of rest. Stay hydrated by sucking on ice chips or taking small sips of water. You can also try drinking clear soda, clear broths or noncaffeinated sports drinks. Stop eating solid foods for a few hours to let your stomach settle. East back into eating by eating bland, aihc-yj-dtlolh foods like crackers, toast, gelatin, bananas, rice and chicken. Try to avoid foods/substances including dairy products, caffeine, alcohol, nicotine and fatty or highly seasoned foods. Medications such as i buprofen or tylenol can make your stomach more upset, so use sparingly if at all. Also avoid gtoo-qmi-yihnhgi anti-diarrheal medications because it can make it harder for your body to eliminate the virus.09/27/2024Nausea & vomiting (ICD- 10 - R11.2)10/23/2024Gastroenteritis (ICD-10 - K52.9)Get plenty of rest. Stay hydrated by sucking on ice chips or taking small sips of water. You can also try drinking clear soda, clear broths or noncaffeinated sports drinks. Stop eating solid foods for a few hours to let your stomach settle. East back into eating by eating bland, slju-xz-tgwwnv foods like crackers, toast, gelatin, bananas, rice and chicken. Try to avoid foods/substances including dairy products, caffeine, alcohol, nicotine and fatty or highly seasoned foods. Medications such as i buprofen or tylenol can make your stomach more upset, so use sparingly if at all. Also avoid zhck-ilv-rfxflcb anti-diarrheal medications because it can make it harder for your body to eliminate the virus.10/26/2024Urinary frequency (ICD- 10 - R35.0)10/26/2024Gastroenteritis (ICD-10 - K52.9)Get plenty of rest. Stay hydrated by sucking on ice chips or taking small sips of water. You can also try drinking clear soda, clear broths or noncaffeinated sports drinks. Stop eating solid foods for a few hours to let your stomach settle. East back into eating by eating bland, pqbi-lg-trbzmc foods like crackers, toast, gelatin, bananas, rice and chicken. Try to avoid foods/substances including dairy products, caffeine, alcohol, nicotine and fatty or highly seasoned foods. Medications such as i buprofen or tylenol can make your stomach more upset, so use sparingly if at all. Also avoid ctqw-xbb-bcezhsi anti-diarrheal medications because it can make it harder for your body to eliminate the virus.12/01/2024Hypertension (ICD-10 - I10)5Acute gastric ulcer (ICD-10 - K25.3)12/07/2024Nephrolithiasis (ICD-10 - N20.0)12/07/2024Well adult (ICD-10 - Z00.00)12/11/2024Nephrolithiasis (ICD-10 - N20.0)12/13/2024Dehydration (ICD-10 - E86.0)12/21/2024Dehydration (ICD-10 - E86.0)12/21/2024Nephrolithiasis (ICD-10 - N20.0)01/12/2025 Nephrolithiasis (ICD-10 - N20.0)5Acute kidney injury (ICD-10 - N17.9) 03/12/2025UTI (urinary tract infection), uncomplicated (ICD-10 - N39.0)Drink plenty of water. Avoid drinks like coffee, alcohol and soft frinks, as these can irritate your bladder and aggravate your frequent or urgent need to urinate. Apply a warm heating pad to your abdomen to minimize bladder pressure or discomfort. You have been prescribed antibiotics for a urinarytract infection. Antibiotics may bother your stomach, so try taking them with a light meal (unless instructed otherwise by your pharmacist). It is important to take them until they are finished. You can use gzwk-hxc-fmavvqo acetaminophen or ibuprofen if needed for pain. You should follow up with your Primary Care Physician or return to clinic if not improving in the next 3-5 days.05/04/2025Dehydration (ICD-10 - E86.0)05/04/2025Kidney stone (ICD-10 - N20.0)06/07/2025UTI (urinary tract infection), uncomplicated (ICD-10 - N39.0)Drink plenty of water. Avoid drinks like coffee, alcohol and soft frinks, as these can irritate your bladder and aggravate your frequent or urgent need to urinate. Apply a warm heating pad to your abdomen to minimize bladder pressure or discomfort. You have been prescribed antibiotics for a urinarytract infection. Antibiotics may bother your stomach, so try taking them with a light meal (unless instructed otherwise by your pharmacist). It is important to take them until they are finished. You can use vmwk-ylw-wwshzxv acetaminophen or ibuprofen if needed for pain. You should follow up with your Primary Care Physician or return to clinic if not improving in the next 3-5 days.07/19/2025bdominal pain (ICD-10 - R10.9)07/19/2025Kidney stone (ICD-10 - N20.0)05/31/2025Syncope (ICD-10 - R55)worse with standing up - want to hold off on testsing - encourage to add salt05/31/2025Flank pain (ICD-10 - R10.9)needs 2 L NS if not better tomorrow as ace08/14/2025Flank pain (ICD-10 - R10.9)08/31/2024Otitis media of left ear (ICD-10 - H66.92)09/14/2024Migraine (ICD-10 - G43.909)09/22/2024ehydration (ICD-10 - E86.0)02/05/2025Dehydration (ICD-10 - E86.0)04/20/2025Nephrolithiasis (ICD-10 - N20.0)12/01/2024Hypoglycemia (ICD-10 - E16.2)08/14/2025UTI (urinary tract infection), uncomplicated (ICD-10 - N39.0)Drink plenty of water. Avoid drinks like coffee, alcohol and soft frinks, as these can irritate your bladder and aggravate your frequent or urgent need to urinate. Apply a warm heating pad to your abdomen to minimize bladder pressure or discomfort. You have been prescribed antibiotics for a urinarytract infection. Antibiotics may bother your stomach, so try taking them with a light meal (unless instructed otherwise by your pharmacist). It is important to take them until they are finished. You can use ucrp-aih-hugzfle acetaminophen or ibuprofen if needed for pain. You should follow up with your Primary Care Physician or return to clinic if not improving in the next 3-5 days.06/07/2025 Dysuria (ICD-10 - R30.0)05/31/2025Hyperglycemia (ICD-10 - R73.9)03/12/2025 Dysuria (ICD-10 - R30.0)03/12/2025Hypertension (ICD-10 - I10)12/01/2024GERD (gastroesophageal reflux disease) (ICD-10 - K21.9)08/14/2025Joint replaced (ICD- 10 - Z96.60)08/14/2025Dysuria (ICD-10 - R30.0)12/01/2024Hyperglycemia (ICD-10 - R73.9)12/07/2024OtherDrink plenty of water. Avoid drinks like coffee, alcohol and soft frinks, as these can irritate your bladder and aggravate your frequent or urgent need to urinate. Apply a warm heating pad to your abdomen to minimize bladder pressure or discomfort. You have been prescribed antibiotics for a urinarytract infection. Antibiotics may bother your stomach, so try taking them with a light meal (unless instructed otherwise by your pharmacist). It is important to take them until they are finished. You can use qgdc-xva-viszpoj acetaminophen or ibuprofen if needed for pain. [...] 03/15/2024 Urinalysis Microscopic 06/20/2024 Urinalysis Microscopic 05/04/2025 UA DIP NONAUTO WO MICRO (77660) - IN OFF ICE 05/31/2025 UA DIP NONAUTO WO MICRO (63366) - IN OFF ICE 07/19/2025 LACTATE 03/15/2024 COMPREHENSIVE METABOLIC PROFILE WITH GFR 06/09/2024 AMYLASE 08/14/2025 CBC AUTO DIFF 08/14/2025 CBC AUTO DIFF 06/09/2024 Covid-19 PCR (CVD[facility]) 06/14/2024 CULTURE URINE 03/15/2024 CULTURE URINE 06/20/2024 CULTURE URINE 05/04/2025 GLYCOHEMOGLOBIN A1C 03/12/2025 LIPASE 08/14/2025 PROF 14(COMP METB) 08/14/2025 PROF 14(COMP METB) 03/12/2025 PROTIME 03/03/2024 VIT B12 AND FOLATE 06/09/2024 US KIDNEYS 08/17/2023 XR DEXA BONE DENSITY 08/14/2025 XR KUB 1 VIEW 03/03/2024 XR KUB [...] Coverage End Date [employer] [address] [address] [place] [address] [id number] Mando Moore Spouse - patient is the spouse of the insured Medications Administered Medication Instructions Date of Administration Dosage Notes Ceftriaxone 1 gram gDexamethasone, 4mg/mL mg8 mgDexamethasone, 4mg/mL gw7Dpgqnsh-3741/24/996062 gh16Hiemxii-3195/12/858590 rl12Rupygpmli 5 soGanzdlcsg33/10/20232 mLPromethazine 25mg325 mg Promethazine 25mg5 mgPromethazine 25mg5 mgPromethazine 25mg/5 mgPromethazine 25mg52 mLPromethazine 25mg5 mgPromethazine 25mg5 mgPromethazine, 25 mg mL25 Promethazine, 25 mg mL25 mgPromethazine, 25 mg mL25 Promethazine, 25 mg425 mg25 mgPromethazine, 25 mg425 mg25 mg IMPromethazine, 25 mg450 mg Medical (General) History Medical History History [...] shoul luc M62.419 Surgical History Surgery Date(Month/Year) Hysterectomy AppendixGallbladderSuperficial Agcgncxrbiicb86/88PCZ8710/27/2023Left Knee Replacement x 2Gastric Vlehzn8129Dggxgkdypzpcpvo History Reason Date(Month/Year) Ulcerative Colitis 2023 see above
--- OUTSIDE RECORDS SUMMARY | 2025-08-14 12:35 | XMS_ITS | CCD ---
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 Role Phone TAMEZ, ZHANE [...] Unavailable Unavailable Hoy, Arleth Martinez Unavailable Unavailable Keivn Lane Referring Unavailable Kevin Lane Attending Unavailable [...] Referring Unavailable Arleth Acharya Primary Care Physician HAWKINS ., DR ORTIZ Consulting Unavailable [facility] Care Unavailable HAWKINS ., DR ORTIZ Admitting Unavailable HAWKINS ., DR ORTIZ Attending Unavailable HOY ., DR REINOSO Consulting Unavailable HOY ., DR REINOSO Attending Unavailable HOY ., DR REINOSO Primary Care Unavailable HOY ., DR REINOSO Admitting Unavailable HAWKINS ., DR ORTIZ Admitting Unavailable HAWKINS ., DR ORTIZ Consulting Unavailable [facility] Care Unavailable HAWKINS ., DR ORTIZ Attending [...] Unavailable HAWKINS ., DR ORTIZ Consulting Unavailable [facility] Care Unavailable HAWKINS ., DR ORTIZ Admitting [...] Unavailable HAWKINS ., DR ORTIZ Admitting Unavailable HAWIKNS ., DR ORTIZ Consulting Unavailable HAWKINS ., DR ORTIZ Attending Unavailable HOY ., DR REINOSO Primary Care Unavailable DANGELOGAVINO iY Consulting Unavailable KUAYSHA, NAZIA Consulting Unavailable LONI [...] Unavailable MD Arleth Acharya Primary Care Provider [phone] MD Arleth Acharya Referring Provider DO Calderón Attending Provider MD Arleth Acharya Primary Care Provider [phone] DO Antonio Attending Provider [phone] MD Harry Pettit V Attending Provider [phone] BILL BROWN Referring Unavailable ARLETH ACHARYA M Primary Care Unavailable BILL BROWN Attending Unavailable BILL BROWN Admitting Unavailable ARLETH ACHARYA M Primary Care Unavailable Arleth Acharya MD Primary Care Provider [phone] Unavailable Primary Care Provider UnavailEDUARDO Browne Attending Unavailable Arleth Acharya MD Attending Provider [phone] Arleth Acharya Attending Unavailable Arleth Acharya Admitting Unavailable MONIQUE BURKETT Referring Unavailable CURLY MORALES Attending Unavailable CURLY MORALES Referring Unavailable ANGELARUKHSANA Referring Unavailable SHENFAYEMONIQUE Attending Unavailable MIGDALIA MOE Attending Unavailable ANGELA, RUKHSANA Attending Unavailable RUKHSANA MILLER Attending Unavailable MIGDALIA MOE Attending Unavailable ADORE CHOI Attending Unavailab le ARLETH ACHARYA Primary Care Unavailable RUSSELL PEREZ Attending Unavailable ARLETH ACHARYA M Primary Care Unavailable GLEN OSEI Attending Unavailable ALYSA POWELL Admitting Unavailable ARLETH ACHARYA M Primary Care Unavailable DIANA GARCIA Attending Unavailable ARLETH ACHARYA M Primary Care Unavailable GAVINO SESAY Attending Unavailable Unallocated Jethro GENTILE Provider Primary Care Provi luc Allergies Allergy ClassificationReported Allergen(s)Allergy TypeDate of OnsetReaction(s) FacilityNSAIDs (1 source)Ketorolac; Translations: [ketorolac]Drug AllergyUnknown (qualifier value)[facility] Agon[facility] (1 source)Meperidine; Translations: [meperidine]Drug AllergyLancaster Municipal HospitalProchlorperazine (1 source)Prochlorperazine; Translations: [prochlorperazine]Drug Allergy Hallucinations (finding)[facility] (8 sources)ketorolac; Translations: [Toradol]Drug Pnmcsve61-62-6143Jsgaxjg (qualifier value)[facility] (6 sources)meperidine; Translations: [Demerol HCl]Drug AllergyMag[facility] (2 sources)MeperidineDrug Crkctlo04-69-8994HqcMer[facility] (1 source)DesonideDrug [facility]ergyMed[facility] (13 sources)Ketorolac; Translations: [ketorolac]Drug Mvpvztr90-91-3828Avts, Shortness of breathTr[facility] (15 sources)Meperidine; Translations: [meperidine]Drug Qatpvfb79-28-5408JnwyCleveland Clinic Union [facility] (12 sources)Prochlorperazine; Translations: [prochlorperazine]Drug Allergy 28-81-1604Oqkenjeqciafgq (finding), HallucinationsExecutive [facility]rology of [facility] (2 sources)Ketorolac; Translations: [KETOROLAC TROMETHAMINE]Drug Allergy 31-70-6283IsykDEICumberland Hospital (7 sources)Desonide; Translations: [DESONIDE]Propensity to adverse reactions 00-79-9964CQBDSaint Joseph Hospital of Kirkwood (6 sources)Ketorolac trometamolPropensity to adverse gdwmoucdn78-94-1152GrutGNJY Healthcare (6 sources)MeperidineDrug Rpymxxz06-70-6817LfayMNGC Healthcare (1 source)No Known Medication Allergies; Translations: [No Known Medication Allergies]Propensity to adverse reactions (disorder)[facility] Medications Current Medications MedicationDrug Class(es)DatesSig (Normalized)Sig (Original)acetaminophen 500 mg oral tablet (3 sources)take 2 tablets by mouth every four hours as neededacetaminophen (Tylenol) 500 MG tablet 1,000 mg every 4 (four) hours if needed Activetake 2 tablets by mouth every six hours as needed for painacetaminophen (TYLENOL) 500 MG tablet Take 2 tablets by mouth every 6 hours as needed for Pain 0 Active acetaminophen 325 mg / HYDROcodone bitartrate 7.5 mg oral tablet (11 sources)Opioid AgonistStart: 07-28-2025 End: 22-35-0946slrd 1 tablet by mouth every eight hours as neededHYDROcodone- acetaminophen ([place]) 7.5-325 MG tablet Take 1 tablet by mouth every 8 (eight) hours ifneeded 07/28/2025 08/27/2025 ActiveStart: 09-82-7925Focji 325 mg-5 mg oral tablet 1 tab(s), Oral, q12hr for pain, 20 tab(s), Refill(s) 0, 1 to 2 tabs every 4 to 6 hours as needed for pain, Pain, [facility] #[id number], 167, cm, 09/13/23 12:07:00 EST, Height/Length Dosing, 70.5, kg, 09/13/23 12:07:00 EST, Weight Dosing Start Date: 09/24/23 Status: OrderedStart: 70-17-2316vwzm 1 tablet by mouth twice daily as needed for painStart: 07-32-7767Okpqb 325 mg-5 mg oral tablet 1 tab(s), Oral, BID Pain 8-10, 20 tab(s), [facility](s) 0[id number], cm, 06/29/22 9:28:00 EDT, Height/Length Dosing, 69, kg, 06/29/22 9:28:00 EDT, Weight Dosing Start Date: 07/27/22 Status: OrderedStart: 99-35-1768huep 1 tablet by mouth every six hoursNorco 325 mg-5 mg oral tablet tab(s), Oral, q6hr, Refill(s) 0 Start Date: 06/29/22 Status: OrderedStart: 08-06-2020 End: 50-77-8571ilms 1 tablet by mouth every eight hours as needed for pain HYDROcodone-acetaminophen (NORCO) 5-325 MG per tablet Take 1 tablet by mouth every 8 hours as needed for Pain. 0 08/06/2020 05/14/2024 Activeacetaminophen 325 mg / oxyCODONE hydrochloride 5 mg oral tablet (1 source)Opioid AgonistStart: 84-18-1697mhzAKTVXO-acetaminophen (PERCOCET) 5- 325 MG per tablet Take 1 tablet by mouth every 6 hours as needed for Pain. Max Daily Amount: 4 tablets 0 02/26/2021 ActiveAir Cast (3 sources)Start: 93-98-3550Cjz Cast Active 0 .Route 1 January 06, 2024 12:00am As directedAir Cast unit (1 source)Start: 69-24-2028Pdt Cast unit Active 0 .Route 1 January 06, 2024 12:00am As directedamitriptyline hydrochloride 100 mg oral tablet (13 sources)Tricyclic AntidepressantStart: 98-62-7224grhi 1 tablet by mouth once dailyamitriptyline (ELAVIL) 100 MG tablet Take 1 tablet by mouth nightly 0 10/21/2023 ActiveStart: 14-28-3177zxyz 1 tablet by mouth once daily at bedtime Start: 00-41-3891zlvs 1 mg by mouth once daily at bedtimeamitriptyline 25 mg Tab mg tab(s), Oral, Once a day (at bedtime), Refills(s) 0 Start Date: 06/29/22 S tatus: OrderedCalcium (2 sources)Phosphate Binder, Calciumcalcium 200 MG tablet Take by mouth Active calcium acetate (5 sources)Start: 55-12-7287dipcgyj acetate mg, Oral, Refills(s) 0 Start Date: 06/29/22 Status: Orderedcalcium carbonate 1500 mg / cholecalciferol 200 unt oral tablet (5 sources)Vitamin DStart: 08-63-3324ccdb 1 tablet by mouth once dailyCalcium Citrate / Vitamin D (1 source)Calcium Citrate-Vitamin D (CALCIUM CITRATE + D PO) Take by mouth 2 times daily 0 Activecephalexin 500 mg oral capsule (3 sources)Cephalosporin AntibacterialStart: 08-13-2025 End: 33-21-5937uuwzzmpack (Keflex) 500 MG capsule Take 500 mg by mouth in the morning and 500 mg at noon and 500 mg in the evening and 500 mg before bedtime. 08/13/2025 08/23/2025 ActiveStart: 05-74-4471pvpr 1 capsule by mouth every twelve hoursKeflex 500 mg Cap 500 mg = 1 cap(s), Oral, q12hr, # 20 cap(s), Refills(s) 0, Pharmacy: [facility] #[id number], 167, cm, 09/13/23 12:07:00 EST, Height/Length Dosing, 70.5, kg, 09/13/23 12:07:00 EST, Weight Dosing Start Date: 10/06/23 Status: OrderedchlordiazePOXIDE hydrochloride 5 mg / clidinium bromide 2.5 mg oral capsule (1 source)Anticholinergic, BenzodiazepinechlordiazePOXIDE-clidinium (LIBRAX) 5- 2.5 MG per capsulecitalopram 40 mg oral tablet (2 sources)Serotonin Reuptake InhibitorStart: 97-26-0877gjej 40 mg by mouth once dailyCelexa 40 mg, Oral, Daily, Refills(s) 0, Depression Start Date: 10/23/14 Status: Orderedcyclobenzaprine hydrochloride 10 mg oral tablet (1 source)Muscle Relaxantcyclobenzaprine (FLEXERIL) 10 MG tablet Take 1 tablet by mouth 0 Activedexamethasone 6 mg oral tablet (1 source)Corticosteroidtake 1 tablet by mouth twice daily at mealtime dexAMETHasone (DECADRON) 6 MG tablet Take 1 tablet by mouth 2 times daily (with meals) 0 Activediclofenac sodium 0.01 mg/mg topical gel (1 source)Nonsteroidal Anti-inflammatory DrugStart: 88-45-9279pcysdaiuwo sodium (VOLTAREN) 1 % GEL Apply 1 Application topically 4 times daily as needed 0 07/06/2019 Activedicyclomine hydrochloride 20 mg oral tablet (1 source)AnticholinergicStart: 94-70-5854ogeo 1 tablet by mouth every four hours as neededdicyclomine (BENTYL) 20 MG tablet Take 1 tablet by mouth every 4 hours as needed (Flank tenderness)30 tablet 0 02/25/2018 Activedocusate sodium 100 mg oral capsule (1 source)take 1 capsule by mouth twice dailydocusate (COLACE, DULCOLAX) 100 MG CAPS Take 1 capsule by mouth 2 times daily 0 Activefluconazole 100 mg oral tablet (1 source)Azole Antifungaltake 1 tablet by mouth once dailyfluconazole (DIFLUCAN) 100 MG tablet Take 1 tablet by mouth daily 0 Activegabapentin 300 mg oral capsule (6 sources)Anti-epileptic AgentStart: 01-06-2024 End: 66-42-9893ikwj 1 capsule by mouth twice dailygabapentin (NEURONTIN) 300 MG capsule Take 1 capsule by mouth 2 times daily. 0 01/06/2024 05/14/2024 Active Start: 66-70-3831ukpy 1 capsule by mouth once dailygabapentin 300 mg Cap 300 mg = 1 cap(s), Oral, Daily, Refills(s) 0 Start Date: 03/07/24 Status: OrderedStart: 48-84-7887Ghbeiadnxo Active MG PO January 06, 2024 12:00amlansoprazole 15 mg delayed release oral capsule (1 source)Proton Pump Inhibitortake 1 capsule by mouth twice dailylansoprazole (PREVACID) 15 MG delayed release capsule Take 1 capsule by mouth 2 times daily 0 Activelidocaine 0.05 mg/mg medicated patch (1 source)Antiarrhythmic, Amide Local AnestheticStart: 35-81-9266mjyax 1 dose transdermal route once daily as needed for painlidocaine (LIDODERM) 5 % Place 1 patch onto the skin daily as needed for Pain Place 1 patch on the skin daily as needed for pain (pain) for up to 15 doses. Remove & Discard patch within 12 hours or as directed by MD 0 10/02/2022 Activemetoclopramide 10 mg oral tablet (6 sources)Dopamine-2 Receptor AntagonistStart: 11-66-1961Iermdfja Vitamin (multivitamin) tablet (2 sources)take 1 tablet by mouth once dailyMultiple Vitamin (multivitamin) tablet Take 1 tablet by mouth Daily ActiveMultiple Vitamins-Minerals (MULTIVITAMIN ADULT PO) (1 source)Multiple Vitamins-Minerals (MULTIVITAMIN ADULT PO) Take by mouth daily 0 ActiveMultivitamin (Multiple Vitamin) Tablet (5 sources)Start: 27-33-5244mymh 1 tablet by mouth once dailyStart: 05-27-2023 take 1 tablet by mouth once dailyMultivitamin (Multiple Vitamin) Tablet Active 1 TAB PO Daily May 27, 2023 12:00amMultivitamin preparation (5 sources)Start: 75-73-8695wrqpgxcxfcbl Daily, Refill(s) 0 Start Date: 06/29/22 Status: Orderednirmatrelvir/ritonavir (PAXLOVID, 150/100,) 10 x 150 MG & 10 x 100MG TBPK (1 source)take 2 tablets by mouth twice dailynirmatrelvir/ritonavir (PAXLOVID, 150/100,) 10 x 150 MG & 10 x 100MG TBPK Take 2 tablets by mouth 2 times daily 0 Activenystatin 974198 unt/ml oral suspension (1 source)Polyene Antifungalnystatin (MYCOSTATIN) 060166 UNIT/ML suspension Take by mouth 0 Activeondansetron 4 mg disintegrating oral tablet (3 sources)Serotonin-3 Receptor AntagonistStart: 22-60-7677vacosbyznsn ODT (Zofran-ODT) 4 MG disintegrating tablet every 6 (six) hours 09/06/2024 Active Start: 10-17-1393pbds 1 tablet by mouth every four hours as needed for nausea ondansetron (ZOFRAN) 4 MG tablet Take 1 tablet by mouth every 4 hours as needed for Nausea or Vomiting 15 tablet 0 02/25/2018 ActiveoxyCODONE hydrochloride 5 mg oral tablet (2 sources)Opioid AgonistStart: 67-68-3327avoGONKTP 5 mg Tab Refills(s) 0 Start Date: 09/13/23 Status: Orderedpantoprazole 40 mg delayed release oral tablet (13 sources)Proton Pump InhibitorStart: 51-97-6535ppfz 1 tablet by mouth once dailyStart: 93-35-1539kbky 40 mg by mouth once dailypantoprazole 40 mg, Oral, Daily, Refills(s) 0, Control of stomach acid Start Date: 10/23/14 Status: Ordered take 2 tablets by mouth once dailypantoprazole (ProtoNix) 40 MG EC tablet Take 2 tablets by mouth once daily. for 90 Activetake 1 tablet by mouth once daily pantoprazole (PROTONIX) 20 MG tablet Take 1 tablet by mouth daily 0 Active phenazopyridine hydrochloride 100 mg oral tablet (1 source)take 1 tablet by mouth three times daily as neededphenazopyridine (PYRIDIUM) 100 MG tablet Take 1 tablet by mouth 3 times daily as needed 0 Active pregabalin 75 mg oral capsule (2 sources)Start: 07-28-2025 End: 11-65-3349mnaloicohy (Lyrica) 75 MG capsule Take 75 mg by mouth in the morning and 75 mg at noon and 75 mg inthe evening and 75 mg before bedtime. 07/28/2025 08/27/2025 Activepromethazine hydrochloride 25 mg oral tablet (13 sources)PhenothiazineStart: 94-86-7336itjb 1 mg rectal route every six hours promethazine 25 mg Supp mg supp, Rectal, q6hr, Refills(s) 0 Start Date: 06/29/22 Status: OrderedStart: 76-44-8538wenp 1 tablet by mouth every four to six hours promethazine (Phenergan) 25 MG tablet every 12 (twelve) hours Activesucralfate 1000 mg oral tablet (6 sources)Aluminum ComplexStart: 36-27-9931wgin 1 tablet by mouth four times dailySUMAtriptan 100 mg oral tablet (4 sources)Serotonin-1b and Serotonin-1d Receptor AgonistStart: 03-07-2024 Imitrex 100 mg Tab 100 mg = 1 tab(s), Oral, as needed for Migraine, Refills(s) 0 Start Date: 03/07/24 Status: OrderedStart: 61-48-4576dpvc 1 tablet by mouth once as neededSUMAtriptan (IMITREX) 100 MG tablet Take 1 tablet by mouth once as needed for Migraine 0 03/07/2024ctiveStart: 27-17-7581QHJDrvxngom 100 mg Tab Refills(s) 0 Start Date: 09/13/23 Status: Orderedtamsulosin hydrochloride 0.4 mg oral capsule (1 source)alpha-Adrenergic BlockerStart: 91-40-9488ojwnvlzugb (FLOMAX) 0.4 MG capsule Take 1 capsule by mouth 0 08/10/2023 ActivetiZANidine 4 mg oral tablet (13 sources)Central alpha-2 Adrenergic AgonistStart: 54-19-2408qevm 2 tablets by mouth once daily at bedtimeStart: 12-63-9425nout 8 mg by mouth once daily at bedtimeTizanidine Active 8 MG PO Daily at bedtime May 27, 2023 12:00am Start: 70-42-8418sneq 1 mg by mouth three times dailyZanaflex 4 mg oral capsule mg cap(s), Oral, TID, Refills(s) 0 Start Date: 06/29/22 Status: OrderedStart: 43-68-0141zqPUIoxaqx (ZANAFLEX) 4 MG tablet Take 1 tablet by mouth as needed 0 08/19/2012 Activetopiramate 50 mg oral tablet (6 sources)Start: 17-50-4987Trvlx: 97-16-5732Dvccgwurva Active MG PO January 06, 2024 12:00amtake 1 tablet by mouth once dailytopiramate (TOPAMAX) 25 MG tablet Take 25 mg by mouth daily 0 Activetake 50 mg by mouth once dailytopiramate ER (TROKENDI XR) 50 MG CP24 Take 50 mg by mouth daily 0 Activetriamcinolone acetonide 1 mg/ml topical cream (1 source)CorticosteroidStart: 23-85-7712rbdhojkkrzaph (KENALOG) 0.1 % cream Apply 1 Application topically in the morning and 1 Application in the evening. 0 11/22/2023 Activevitamin B12 (11 sources)Vitamin F66Bmbdt: 90-84-5987kkukbjyqxbeett 1000 MCG/ML injection Start: 23-03-0518dxvyza 1000 ug by intramuscular injection every 30 daysStart: 43-53-0901fkacef 1000 ug by intramuscular injection every 30 daysCyanocobalamin (Vitamin B-12) Active 1000 MCG IM Q30D May 27, 2023 12:00amStart: 85-40-6330Paflnqp B12 Refills(s) 0 Start Date: 06/29/22 Status: Ordered Completed/Discontinued Medications MedicationDrug Class(es)DatesSig (Normalized)Sig (Original)ferrous sulfate 325 mg oral tablet (8 sources)Start: 05-27-2023 End: 47-68-7160mmsd 1 tablet by mouth once dailyFerrous Sulfate 325 mg (65 mg iron) Tablet Discontinued 325 MG PO Daily May 27, 2023 12:00am May 28, 2023 11:26amFerrous Sulfate (IRON) 28 MG TABS Take by mouth daily 0 Active hyoscyamine sulfate 0.125 mg sublingual tablet (6 sources)Start: 05-27-2023 End: 08-19-9398vpez 1 tablet under the tongue every six hoursHyoscyamine Sulfate 0.125 mg Tablet, Sublingual Discontinued 0.125 MG SUBLINGUAL Q6H May 27 12:00am May 28, 2023 11:06amtake 1 tablet under the tongue every four hours as neededhyoscyamine (LEVSIN/SL) [address] 1 tablet under the tongue every 4 hours as needed for Cramping 0 Activeiopamidol (ISOVUE- 370) 76 % injection 75 mL (1 source)Start: 05-01-2024 End: 07-93-5454rveupyafq (ISOVUE-370) 76 % injection 75 mL Problems Active Problems Problem ClassificationProblemDateDocumented DateEpisodic/ChronicAnxiety disorders (6 sources)Anxiety; Translations: [Anxiety disorder, unspecified]Onset: 966490-93-0747LrcngvbJwmbitkujoajt of surgical procedures or medical care (4 sources)Iron deficiency anemia; Translations: [Other complications of other bariatric procedure]20-74-1119SxbmzpgbL Codes: Fall (1 source)FallOnset: 96-21-2726Rkibqixtl hypertension (1 source)Essential (primary) hypertension; Translations: [ESSENTIAL PRIMARY HYPERTENSION]Onset: 50-47-0727AoojkejUwwknufcpkvdl congenital anomalies (2 sources)Congenital occlusion of ureteropelvic junction; 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, unspecified]Onset: 15-55-2358Tmdvqis Genitourinary symptoms and ill-defined conditions (20 sources)Blood in urine; Translations: [Gross hematuria]Onset: 02-25-2018 EpisodicJoint disorders and dislocations; trauma-related (4 sources)Derangement of right knee; Translations: [Unspecified internal derangement of right knee]58-34-2274RzrngucCfdy disorders (6 sources)Depressive disorder; Translations: [Major depressive disorder, single episode, unspecified]Onset: 679488-56-1023VrdjtkcNcko disorders (1 source)Mood disorders; Translations: [DEPRESSION UNSPECIFIED]Onset: 93-74-6938Ifiyjk and vomiting (4 sources)Nausea with vomiting, unspecified; Translations: [Vomiting, unspecified]Onset: 71-55-5201JqfvtjmfLtyqwohfkzplbh (5 sources)Unilateral primary osteoarthritis, left knee; Translations: [UNILATERAL PRIMARY OSTEOARTHRITIS, LEFT KNEE]Onset: 27-46-7237KbyzdwxSfbvu aftercare (5 sources)Aftercare following joint replacement surgery; Translations: [AFTERCARE FOLLOWING JOINT REPLACEMENTSURGERY]Onset: 06-18-4091TeymlzgUhexl aftercare (1 source)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; Translations: [LONG-TERM (CURRENT) USE OF ASPIRIN]Onset: 91-12-5580WjmjvhlmKmzup aftercare (2 sources)Other terminologist (current) drug therapy; Translations: [OTHER LONG-TERM (CURRENT) DRUG THERAPY]Onset: 36-55-7996GnqvadavMeate and unspecified benign neoplasm (2 sources)Benign neoplasm of parotid gland; Translations: [Benign neoplasm of parotid gland]Onset: 35-52-3807NlywxoyxZvdgt connective tissue disease (3 sources)Presence of left artificial knee joint; Translations: [PRESENCE OF LEFT ARTIFICIAL KNEE JOINT]Onset: 51-14-6301SxpnxuvYygut connective tissue disease (3 sources)Presence of unspecified artificial knee joint; Translations: [PRESENCE OF UNSPECIFIED ARTIFICIAL KNEE JOINT]Onset: 17-09-4993VmqcnpvBtnxw connective tissue disease (1 source)Muscle wasting and atrophy, not elsewhere classified, left lower leg; Translations: [MUSCLE WASTINGAND ATROPHY, NEC, LEFT LOWER LEG]Onset: 04-07-2022 EpisodicOther gastrointestinal disorders (1 source)Irritable bowel syndrome without diarrhea; Translations: [IRRITABLE BOWEL SYND W/O DIARRHEA]Onset: 46-72-1157JkjwfgpUssyu gastrointestinal disorders (1 source)Bariatric surgery status; Translations: [BARIATRIC SURGERY STATUS] Onset: 19-86-9122FomnnuffLfgfm nervous system disorders (2 sources)Complex regional pain syndrome I of left lower limb; Translations: [Complex regional pain syndrome i of left lower limb]Onset: 30-26-2336Ptfomxv Other nervous system disorders (2 sources)Other chronic postprocedural pain; Translations: [Other chronic postprocedural pain]Onset: 86-71-5921EodxixwFzisw nervous system disorders (1 source)Other acute postprocedural pain; Translations: [OTHER ACUTE POSTPROCEDURAL PAIN]Onset: 96-14-9977PnocuajkAisuw non-traumatic joint disorders (4 sources)Pain in left knee; Translations: [PAIN IN LEFT KNEE]Onset: 06-03-2022 EpisodicOther non-traumatic joint disorders (1 source)Effusion, left knee; Translations: [EFFUSION, LEFT KNEE]Onset: 57-72-4450MqcgnzfuAduax non-traumatic joint disorders (2 sources)Pain in right knee; Translations: [Pain in joint, lower leg] 53-47-3099CgnhvxzxBbaxt nutritional; endocrine; and metabolic disorders (5 sources)Morbid -56-6156AraqlpsCybjt screening for suspected conditions (not mental disorders or infectious disease) (2 sources)Patient encounter status; Translations: [Encounter for screening mammogram for malignant neoplasm of breast]67-06-6466EfkfkyhqAkgncpzt codes; unclassified (1 source)Acquired absence of both cervix and uterus; Translations: [ACQUIRED ABSENCE BOTH CERVIX AND UTERUS]Onset: 63-67-9924DgwtstlaBefbhezh codes; unclassified (1 source)Acquired absence of other specified parts of digestive tract; Translations: [ACQ ABSENCE OTH PART DIGESTV TRACT]Onset: 97-94-0527Ibxmtxtn Screening and history of mental health and substance abuse codes (2 sources)Personal history of nicotine dependence; Translations: [PERSONAL HISTORY OF NICOTINE DEPENDENCE]Onset: 16-03-0695JqjjuwxhJmwbvsw and strains (2 sources)Sprain of unspecified ligament of left ankle, initial encounter; Translations: [Sprain of ankle, unspecified site]84-21-1548NzusdbomKhhovdicjrzl (1 source)C/O POST OP RECHECK - LEFT KNEE.Onset: 14-88-6879Cyimccyabbht (1 source)C/O POST OP RECHECK - LEFT KNEEOnset: 69-28-3522Forkhdgpewkk (5 sources)Asymptomatic microscopic axsdxuinl95-38-2917Wxeabzhvqqte (1 source)PERSONAL HISTORY OF COVID-19; Translations: [PERSONAL HISTORY OF COVID-19]Onset: 14-87-6191Qrcnqdvyuxtk (4 sources)CONTACT W/AND (SUSP) EXPOS COVID-19; Translations: [CONTACT W/AND (SUSP) EXPOS COVID-19]Onset: 96-55-8054Ixjrfmunfxpn (1 source)COUGH, UNSPECIFIED; Translations: [COUGH, UNSPECIFIED]Onset: 56-22-1744Qigrwavdwaxq (2 sources)Presence of neurostimulator; Translations: [Presence of neurostimulator]Onset: 25-41-7609Aoetdjpeadkq (1 source)Flank pain, left side; Translations: [Flank pain, left side]Onset: 01-87-4118Tqmlpzqiacvl (1 source)Back Pain, VomitingOnset: 43-76-4953Yigpccg tract infections (4 sources)Urinary tract infection, site not specified; Translations: [UTI SITE NOT SPECIFIED]Onset: 01-29-0482GekxgqbjBqdov infection (1 source)COVID-19; Translations: [COVID-19]Onset: 10-09-2022 Past or Other Problems Problem ClassificationProblemDateDocumented DateEpisodic/ChronicAbdominal pain (19 sources)Abdominal pain; Translations: [Unspecified abdominal pain]Onset: 93-22-6810DqezwrogXfymo and unspecified renal failure (1 source)Acute kidney failure, unspecified; Translations: [Acute kidney failure, unspecified]Onset: 56-52-3152LtavfuqxRugqjxdp of urinary tract (18 sources)Kidney stone; Translations: [Calculus of kidney]Onset: 02-25-2018 EpisodicComplication of device; implant or graft (7 sources)Pain due to internal orthopedic prosthetic devices, implants and grafts, initial encounter; Translations: [Instability of internal left knee prosthesis, initial encounter]Onset: 09-10-5764OijydowkQtiznhlkeuihpmoo hemorrhage (1 source)Rectal hemorrhageOnset: 59-50-0187NhsxunxqTpytukr and fatigue (1 source)Other fatigue; Translations: [OTHER FATIGUE]Onset: 98-58-7039Uicpivoj Other aftercare (3 sources)Encounter for other specified surgical aftercare; Translations: [ENCOUNTER FOR OTHER SPECIFIED SURGICAL AFTERCARE]Onset: 88-25-3789WtuwlesjTnhlw and unspecified benign neoplasm (1 source)Pleomorphic adenoma of parotid gland; Translations: [Benign neoplasm of parotid gland]87-43-9433OkvzaqgzDwpcz connective tissue disease (2 sources)Neuralgia and neuritis, unspecified; Translations: [Neuralgia and neuritis, unspecified]Onset: 81-55-8980UqqfhjlzIlivj non-traumatic joint disorders (3 sources)Stiffness of left knee, not elsewhere classified; Translations: [STIFFNESS OF LEFT KNEE, NOT ELSEWHERE CLASSIFIED]Onset: 20-58-8107BldresnrVkdug non-traumatic joint disorders (1 source)Osteophyte, left knee; Translations: [OSTEOPHYTE, LEFT KNEE]Onset: 78-40-0655MxanlbxuKvdir upper respiratory disease (1 source)Nasal congestion; Translations: [NASAL CONGESTION]Onset: 09-24-2022 EpisodicOther upper respiratory infections (1 source)Acute recurrent frontal sinusitis; Translations: [ACUTE RECURRENT FRONTAL SINUSITIS]Onset: 65-99-5188PzhdjsjdCzpscspz codes; unclassified (2 sources)Other specified postprocedural states; Translations: [Other specified postprocedural states]Onset: 56-67-6189MoiwmhphRiupiyfqm-related disorders (2 sources)Opioid use, unspecified, uncomplicated; Translations: [Opioid use, unspecified, uncomplicated]Onset: 74-41-8946MmvhxcnvZzljhdy (2 sources)Syncope and collapse; Translations: [Syncope]Onset: 01-11-2025 EpisodicUnclassified (1 source)CONTACT W/AND (SUSP) EXPOS COVID-19; Translations: [CONTACT W/AND (SUSP) EXPOS COVID-19]Onset: 10-06-2022 Results Test NameValueInterpretationReference RangeFacilityXR Knee - right 1 or 2 Views on 07-85-0636Qpgkgjc Result: AP and Lateral weight bearing: Bones: The bony structures of the knee, including the distal femur, proximal tibia, and patella, appear normal. Stable alignment. There are no fractures, dislocations, or bony lesions noted. Prosthesis noted in left knee, but end of stems no visualized. Joint Spaces: The joint spaces are narrowing medially but still preserved and greater than 50% of lateral weight bearing surface. . Spurring noted to medial weight bearing surfaces. Subchondral sclerosis present. Degenerative changes to patella-femoral surface. Soft Tissues: trace effusion Impression: Degenerative changes to right knee.[facility] HealthcareRadiology Study observation (narrative)[facility]woodCBC WITH AUTO DIFFERENTIALon 08-12-2025 BASOPHILS ABSOLUTE COUNT (10*3/UL) BY AUTOMATED COUNT0.0 10*3/uLNormal0.0-0.2 [facility] CenterComment on above:Performed By: #### CBCA, CMP #### [facility] ([id number]) [address] [place] [address], FIRST FLOOR [place], [place] [address]BASOPHILS RELATIVE PERCENT BY AUTOMATED COUNT0.3 %Normal [facility] Medical CenterComment on above:Performed By: #### CBCA, CMP #### [facility] ([id number]) [address] [place] [address] 75641ARGIKNIPJCV DIFFERENTIAL TYPEAUTOMATED DIFFERENTIALNormal [facility] CenterComment on above:Performed By: #### CBCA, CMP #### [facility] ([id number]) [address] [place] [address] 14198Klamoaeuyfj (Bld) [#/Vol]0.0 10*3/uLNormal0.0-0.4[facility] Medical CenterComment on above:Performed By: #### CBCA, CMP #### [facility] ([id number]) [address] [place] [address] 55692DVPBCIHLMLZ RELATIVE PERCENT BY AUTOMATED COUNT0.6 %Normal [facility] CenterComment on above:Performed By: #### CBCA, CMP #### [facility] ([id number]) [address] [place] [address] 02349Powscwzyusa distribution width (RBC) [Ratio]16.1 %High11.5-15 [facility] CenterComment on above:Performed By: #### CBCA, CMP #### [facility] ([id number]) [address] [place] [address] 30574Cydhicekzl (Bld) [Volume fraction]36.9 %Slzzeo66-38DhnFajuqsLamb Healthcare CenterComment on above:Performed By: #### CBCA, CMP #### [facility] ([id number]) [address] [place] [address] 18942Qqkuvoseou (Bld) [Mass/Vol]11.9 g/fWQznftg97.7-15.5ProMedFresno Heart & Surgical HospitalComment on above:Performed By: #### CBCA, CMP #### [facility] ([id number]) [address] [place] [address] 76369GAVDVXXRAHX ABSOLUTE COUNT (10*3/UL) BY AUTOMATED COUNT2.7 10*3/uLNormal1.0-3.5PLutheran HospitalComment on above:Performed By: #### CBCA, CMP #### [facility] ([id number]) [address] [place] [address] 70356XTXLWEGHEZD RELATIVE PERCENT BY AUTOMATED COUNT34.5 %Normal [facility] CenterComment on above:Performed By: #### CBCA, CMP #### [facility] ([id number]) [address] [place] [address] 43421SRU (RBC) [Entitic mass]24.8 clBtx89-35HfsUdzlfcLamb Healthcare CenterComment on above:Performed By: #### CBCA, CMP #### [facility] ([id number]) [address] [place] [address] 23546GQXM (RBC) [Mass/Vol]32.2 g/aGRkyyar29-54BbrHjmfxmLamb Healthcare CenterComment on above:Performed By: #### CBCA, CMP #### [facility] ([id number]) [address] [place] [address] 78350PFE (RBC) [Entitic vol]77 jBGyn70-233OyaAuouhdPremier Health Atrium Medical Center Comment on above:Performed By: #### CBCA, CMP #### [facility] ([id number]) [address] [place] [address] 78108SVBREOYWW ABSOLUTE COUNT (10*3/UL) BY AUTOMATED COUNT0.7 10*3/uLNormal0.0-0.9[facility] Medical CenterComment on above:Performed By: #### CBCA, CMP #### [facility] ([id number]) [address] [place] [address] 07008QUVCCBOOI RELATIVE PERCENT BY AUTOMATED COUNT8.9 %Normal [facility] CenterComment on above:Performed By: #### CBCA, CMP #### [facility] ([id number]) [address] [place] [address] 86872NURRYBFCLWY ABSOLUTE COUNT BY AUTOMATED COUNT4.4 10*3/uLNormal 1.5-6.6[facility] CenterComment on above:Performed By: #### CBCA, CMP #### [facility] ([id number]) [address] [place] [address] 45639SNYUFIJHTUY RELATIVE PERCENT BY AUTOMATED COUNT55.7 %Normal [facility] CenterComment on above:Performed By: #### CBCA, CMP #### [facility] ([id number]) [address] [place] [address] 00075Ehrczbvy mean volume (Bld) [Entitic vol]8.0 fLNormal7-12 [facility] CenterComment on above:Performed By: #### CBCA, CMP #### [facility] ([id number]) [address] [place] [address] 81094Evygoqpwz (Bld) [#/Vol]309 10*3/aTRwjulw533-702VexEgtpyb [facility]remont HospitalComment on above:Performed By: #### CBCA, CMP #### [facility] ([id number]) [address] [place] [address] 30754JFP COUNT4.80 X10E12/LNormal3.8-5.2PLutheran Hospital Comment on above:Performed By: #### CBCA, CMP #### [facility] ([id number]) [address] [place] [address] 85292XWL (Bld) [#/Vol]7.8 10*3/uLNormal4-11[facility] CenterComment on above:Performed By: #### CBCA, CMP #### [facility] ([id number]) [address] [place] [address], [place] [address]OUOQJHAECMIDL METABOLIC PANELon 46-71-1495Nwtxzjw [Mass/Vol]4.4 g/dLNormal3.2-5.3PLutheran HospitalComment on above:Performed By: #### CBCChristine, CMP #### [facility] ([id number]) [address] [place] [address], [place] [address]IBD [Catalytic activity/Vol]96 U/VUnpppy19-965NukVicnynLamb Healthcare CenterComment on above:Performed By: #### CBCChristine, CMP #### [facility] ([id number]) [address] [place] [address], [place] [address]VDC [Catalytic activity/Vol]15 U/LNormal<=31PLutheran HospitalComment on above:Performed By: #### CAMILLE, CMP #### [facility] ([id number]) [address] [place] [address], [place] [address]Gvddu gap [Moles/Vol]12 mmol/LNormal5-15ProLamb Healthcare CenterComment on above:Performed By: #### CAMILLE, CMP #### [facility] ([id number]) [address] [place] [address], [place] [address]QXJ [Catalytic activity/Vol]19 U/LNormal<=41ProLamb Healthcare CenterComment on above:Performed By: #### CBCChristine, CMP #### [facility] ([id number]) [address] [place] [address], [place] [address]Eeeshtqcl [Mass/Vol]0.3 mg/dLNormal0.3-1.2PLutheran HospitalComment on above:Performed By: #### CBCChristine, CMP #### [facility] ([id number]) [address] [place] [address], [place] [address]Moyokgg [Mass/Vol]9.2 mg/dLNormal8.5-10.5PSouthwest Memorial Hospital HospitalComment on above:Performed By: #### CBCChristine, CMP #### [facility] ([id number]) [address] [place] [address] 37149Qgyjxgnu [Moles/Vol]100 mmol/JHgngwz51-179TceXtdiohPremier Health Atrium Medical CenterComment on above:Performed By: #### CBCA, CMP #### [facility] ([id number]) [address] [place] [address] 18761YU6 [Moles/Vol]25 mmol/EOvippk03-47OglDlgjdiLutheran Hospital Comment on above:Performed By: #### CBCChristine, CMP #### [facility] ([id number]) [address] [place] [address] 29992Kxxzowoxwh [Mass/Vol]0.70 mg/dLNormal0.40-1.00[facility] Medical CenterComment on above:Result Comment: METHOD TRACEABLE TO IDMS STANDARD Performed By: #### CAMILLE, CMP #### [facility] ([id number]) [address] [place] [address] 49408HAEB (CKD-EPI) NON-RACE DEPENDENT>^90Normal>=60[facility] Medical CenterComment on above:Result Comment: eGFR not reported due to non- numeric value for Creatinine. Reported eGFR is based on the CKD-EPI 2021 equation that does not use a race coefficient.Performed By: #### CAMILLE, CMP #### [facility] ([id number]) [address] [place] [address] 89754Qtxkawg [Mass/Vol]94 mg/jGMgsjac74-42JsxRrtwixPremier Health [facility] Medical Center Comment on above:Performed By: #### CBCA, CMP #### [facility] ([id number]) [address] [place] [address] 07684Hyhrziehp [Moles/Vol]3.9 mmol/LNormal3.5-5.0ProLamb Healthcare CenterComment on above:Performed By: #### CBCA, CMP #### [facility] ([id number]) [address] [place] [address] 12621Sdtzndl [Mass/Vol]8.2 g/dLHigh6.0-8.0[facility] Comment on above:Performed By: #### CBCA, CMP #### [facility] ([id number]) [address] [place] [address] 42536Mbgjzg [Moles/Vol]137 mmol/FIltlug235-889BtdNpyvrr [facility] HospitalComment on above:Performed By: #### CBCA, CMP #### [facility] ([id number]) [address] [place] [address] 43967Flaw nitrogen [Mass/Vol]13 mg/dLNormal5-23ProLamb Healthcare CenterComment on above:Performed By: #### CBCA, CMP #### [facility] ([id number]) [address] [place] [address] 04612LG ABDOMEN AND PELVIS WO CONTon 78-11-7138AR ABDOMEN AND PELVIS WO CONTCT ABDOMEN AND PELVIS WO CONT CT ABDOMEN AND PELVIS WITHOUT INTRAVENOUS CONTRAST [...] intraperitoneal air. Visualized body wall structures are unre markable. No acute osseous abnormalities or aggressive osseous lesions. IMPRESSION: * No acute abnormalities in the abdomen/pelvis. Specifically, no obstructing urinary tract stones or collecting system dilatation. All CT scans at this facility use dose modulation, iterative reconstruction, and/or weight based dosing when appropriate to reduce radiation dose to as low as reasonably achievable. Finalized by Jeffy Gabriel MD on 08/12/2025 11:52 PMNormalPremier Health Atrium Medical CenterLIPASEon 39-92-6987Hsddpx [Catalytic activity/Vol]76 U/CSxha74-55 [facility] CenterComment on above:Performed By: #### CBCChristine, CMP #### [facility] ([id number]) [address] [place] [address] 67203RNBB NURSING URINE MACROSCOPIC UAon 01-43-3364FPULQMDZO JUNIOR NegativeNormalNegativePremier Health Atrium Medical CenterComment on above:Performed By: #### CBCA, CMP #### [facility] ([id number]) [address] [place] [address] 62749VXVWP/HGB NURLargeAbnormCommunity Memorial Hospital Comment on above:Performed By: #### CBCA, CMP #### [facility] ([id number]) [address] [place] [address] 65082HKDYJXC NURNegativeNormalNegTogus VA Medical Center Comment on above:Performed By: #### CBCA, CMP #### [facility] ([id number]) [address] [place] [address] 44814HIJDKOG NURNegativeNormalNegativePremier Health Atrium Medical Center Comment on above:Performed By: #### CBCA, CMP #### [facility] ([id number]) [address] [place] [address] [place] [address]NBHJXOYYG ESTERASE NURSmallAbnormalNegTogus VA Medical CenterComment on above:Performed By: #### CBCA, CMP #### [facility] ([id number]) [address] [place] [address] 21786HCGPXSU NURNegativeNormalNegativePremier Health Atrium Medical Center Comment on above:Performed By: #### CBCA, CMP #### [facility] ([id number]) [address] [place] [address] 84436EG NUR8.1Uvatej9.0, 6.0, 6.5, 7.0, 7.5, 8.0, 8.5, 5.5[facility] CenterComment on above:Performed By: #### CAMILLE, CMP #### [facility] ([id number]) [address] [place] [address] 18519CULBEIP NURTraceAbnormalNegativePremier Health Atrium Medical Center Comment on above:Performed By: #### CAMILLE, CMP #### [facility] ([id number]) [address] [place] [address] 47603YRCFRTFI GRAVITY NUR1.611Hchlou9.010, 1.015, 1.020, 1.025 [facility] Health CenterComment on above:Performed By: #### CAMILLE, CMP #### [facility] ([id number]) [address] [place] [address] 56292KKGBIZTTTVDO NUR2.0 E.U./dLNormalPremier Health [facility] Center Comment on above:Performed By: #### CAMILLE, CMP #### [facility] ([id number]) [address] [place] [address] 83119TJBI , URINE (NUCG)on 78-76-0500Rwhr HCG ( test) Ql (U)NegativeNormalNegative, IndeterminatePremier Health Atrium Medical Center Comment on above:Performed By: #### CAMILLE, CMP #### [facility] ([id number]) [address] [place] [address] 01404Kxxsds-Qmul 27-92-0841Kvfdzt-[id number] Elvi Moore 1980 F Date Provider Department Center 07/24/2025 27996-TIRZHMIGDALIA MOE PAIN [facility] Family History Problem Relation Age of Onset Brain cancer Mother Breast cancer Sister Kidney cancer Maternal Grandmother Prostate cancer Paternal Grandfather Cancer Father Cancer Sister Family Status - Relation Status Age at Mother Sister Maternal Grandmother Paternal Grandfather Father Sister Level of Service:97803 NC OFFICE/OUTPATIENT ESTABLISHED MOD MDM 30 MIN Reason for Visit and Comments: Med Management [[id number]] - Refill [place] [facility] Follow-up [[id number]] - [facility] HospitalOrders Onlyon 27-68-8655Noecsc [id number] Elvi Moore 1980 F Date Provider Department Center 06/25/2025 63977-GHORBMIGDALIA KOTHARI MP PAIN Medical [facility] Family History Problem Relation Age of Onset Brain cancer Mother Breast cancer Sister Kidney cancer Maternal Grandmother Prostate cancer Paternal Grandfather Cancer Father Cancer Sister Family Status - Relation Status Age at Mother Sister Maternal Grandmother Paternal Grandfather Father SisterNoCleveland Clinic Union HospitalRefmcleod health seacoast [id number] Modesto Mooreatha 1980 F Date Provider Department Center 06/25/2025 84986-JYIVBMIGDALIA KOTHARI MP PAIN Medical [facility] Family History Problem Relation Age of Onset Brain cancer Mother Breast cancer Sister Kidney cancer Maternal Grandmother Prostate cancer Paternal Grandfather Cancer Father Cancer Sister Family Status - Relation Status Age at Mother Sister Maternal Grandmother Paternal Grandfather Father Sister Reason for Visit and Comments: Med Refill [[id number]][facility]Orders Onlyon 40-02-7066Pchekc [id number] Modesto Mooreatha 1980 F Date Provider Department Center 05/28/2025 06188-TKOSRMIGDALIA KOTHARI MP PAIN Medical [facility] Family History Problem Relation Age of Onset Brain cancer Mother Breast cancer Sister Kidney cancer Maternal Grandmother Prostate cancer Paternal Grandfather Cancer Father Cancer Sister Family Status - Relation Status Age at Mother Sister Maternal Grandmother Paternal Grandfather Father SisterNormalUniAdena Regional Medical CenterRefmcleod health seacoast [id number] Modesto Mooreatha 1980 F Date Provider Department Center 05/28/2025 93733-YXLKLMIGDALIA KOTHARI MP PAIN Medical [facility] Family History Problem Relation Age of Onset Brain cancer Mother Breast cancer Sister Kidney cancer Maternal Grandmother Prostate cancer Paternal Grandfather Cancer Father Cancer Sister Family Status - Relation Status Age at Mother Sister Maternal Grandmother Paternal Grandfather Father Sister Reason for Visit and Comments: Med Refill [[id number]][facility] LimaBASIC METABOLIC PANELon 00-32-0633Xvhiz gap [Moles/Vol]8 mmol/LNormal5-15[facility] Medical CenterComment on above:Performed By: #### BMP ####[facility] [place] [address].[place] [address] VIRCalcium [Mass/Vol]8.6 mg/dLNormal8.5-10.5ProMedFresno Heart & Surgical HospitalComment on above:Performed By: #### BMP ####[facility])[address] [place] [address].[place] [address] VIRChloride [Moles/Vol]102 mmol/ZJsxmcb44-413JleOinmzn [facility] Comment on above:Performed By: #### BMP ####[facility] ([address] [place] [address] VIRCO2 [Moles/Vol]27 mmol/OOoofmd45-71 [facility] CenterComment on above:Performed By: #### BMP ####[facility] ([address] [place] [address] VIR Creatinine [Mass/Vol]0.74 mg/dLNormal0.40-1.00[facility] Medical CenterComment on above:Result Comment: METHOD TRACEABLE TO IDMS STANDARDPerformed By: #### BMP ####[facility])[address] [place] [address].[place], [place] [address] VIREGFR (CKD-EPI) NON-RACE DEPENDENT>^90Normal>=60ProLamb Healthcare CenterComment on above:Result Comment: eGFR not reported due to non-numeric value for Creatinine. Reported eGFR is based on the CKD-EPI 2020 equation that does not use a race coefficient.Performed By: #### BMP ####[facility] ([address] [place] [address] VIRGlucose [Mass/Vol]79 mg/cHBtsahq54-86LfbOyyuxmLamb Healthcare CenterComment on above:Performed By: #### BMP ####[facility] ([address] [address] VIRPotassium [Moles/Vol]3.7 mmol/LNormal3.5-5.0[facility] Comment on above:Performed By: #### BMP ####[facility] ([address] [address] VIRSodium [Moles/Vol]137 mmol/LNormal 134-146ProLamb Healthcare CenterComment on above:Performed By: #### BMP ####[facility] ([address] [address] VIRUrea nitrogen [Mass/Vol]19 mg/dLNormtx5-23[facility] Comment on above:Performed By: #### BMP ####[facility] ([address] [address] VIRCBC WITH AUTO DIFFERENTIALon 91-89-8639ELXOMCSTC ABSOLUTE COUNT (10*3/UL) BY AUTOMATED COUNT0.0 10*3/uLNormal 0.0-0.2[facility] CenterComment on above:Performed By: #### CBCA ####[facility] ([address] VIRBASOPHILS RELATIVE PERCENT BY AUTOMATED COUNT0.2 %NormalProLamb Healthcare CenterComment on above:Performed By: #### CBCA ####[facility] ([address] VIRCELLAVISION DIFFERENTIAL TYPEAUTOMATED DIFFERENTIALNoalPremier Health Atrium Medical CenterComment on above: Performed By: #### CBCA ####[facility] ([address] VIREosinophils (Bld) [#/Vol]0.1 10*3/uLNormal0.0-0.4 [facility] CenterComment on above:Performed By: #### CBCA ####[facility] ([address], [id number] VIR EOSINOPHILS RELATIVE PERCENT BY AUTOMATED COUNT1.1 %NormalPremier Health Atrium Medical CenterComment on above:Performed By: #### CBCA ####[facility] ([address], [id number] VIRErythrocyte distribution width (RBC) [Ratio]16.7 %High11.5-15[facility] Medical CenterComment on above: Performed By: #### CBCA ####[facility] ([address], [id number] VIRHematocrit (Bld) [Volume fraction]33.0 %Jqe47-92 [facility] Medical CenterComment on above:Performed By: #### CBCA ####[facility] ([address], [id number] VIRHemoglobin (Bld) [Mass/Vol]10.7 g/dLLow11.7-15.5PLutheran HospitalComment on above: Performed By: #### CBCA ####[facility] ([address], [id number] VIRLYMPHOCYTES ABSOLUTE COUNT (10*3/UL) BY AUTOMATED COUNT2.0 10*3/uLNormal1.0-3.5PLutheran HospitalComment on above: Performed By: #### CBCA ####[facility] ([address], [id number] VIRLYMPHOCYTES RELATIVE PERCENT BY AUTOMATED COUNT39.6 %NormalPremier Health Atrium Medical CenterComment on above:Performed By: #### CBCA ####[facility], [id number] VIRMCH (RBC) [Entitic mass]25.0 tnIxa35-28WpeMxkmyzPremier Health Atrium Medical CenterComment on above:Performed By: #### CBCA ####[facility] ([address], [id number] VIRMCHC (RBC) [Mass/Vol]32.5 g/gCAbifuv53-23 [facility] CenterComment on above:Performed By: #### CBCA ####[facility] ([address], [id number] VIRMCV (RBC) [Entitic vol]77 yKFrj83-008HayDcprfzLamb Healthcare CenterComment on above:Performed By: #### CBCA ####[facility] ([address], [id number] VIRMONOCYTES ABSOLUTE COUNT (10*3/UL) BY AUTOMATED COUNT0.4 10*3/uLNormal0.0-0.9ProLamb Healthcare CenterComment on above:Performed By: #### CBCA ####[facility] ([address], [id number] VIRMONOCYTES RELATIVE PERCENT BY AUTOMATED COUNT7.7 %Normal [facility] CenterComment on above:Performed By: #### CBCA ####[facility] ([address], [id number] VIR NEUTROPHILS ABSOLUTE COUNT BY AUTOMATED COUNT2.6 10*3/uLNormal1.5-6.6Prem[facility] Medical CenterComment on above:Performed By: #### CBCA ####[facility] ([address], [id number] VIRNEUTROPHILS RELATIVE PERCENT BY AUTOMATED COUNT51.4 %NormalProLamb Healthcare CenterComment on above:Performed By: #### CBCA ####[facility])[address], [id number] VIRPlatelet mean volume (Bld) [Entitic vol]8.4 fLNormal7-12PLutheran HospitalComment on above:Performed By: #### CBCA ####[facility] ([facility], [id number] VIRPlatelets (Bld) [#/Vol]246 10*3/gKFdebrx671-305QynSvmuiy [facility] HospitalComment on above:Performed By: #### CBCA ####[facility])[address] [place] [address] [address].[place], [id number] VIRRBC COUNT4.29 X10E12/LNormal3.8-5.2PLutheran HospitalComment on above:Performed By: #### CBCA ####[facility] ([address], [id number] VIRWBC (Bld) [#/Vol]5.0 10*3/uLNormal4-11ProLamb Healthcare CenterComment on above:Performed By: #### CBCA ####[facility] ([facility])[address] [place] [address] [address] [place], [id number] VIRCT ABDOMEN AND PELVIS WO CONTon [id number] ABDOMEN AND PELVIS WO CONTCT ABDOMEN AND PELVIS WO CONT CLINICAL INFORMATION: Flank pain. Abdominal pain. Kidney stone. COMPARISON: 01/11/2025 PROCEDURE: CT abdomen and pelvis obtained without contrast. All CT scans at this facility dose modulation, iterative reconstruction, and/or weight based dosing when appropriate to reduce radiation dose to as low as reasonably achievable. FINDINGS: This examination is limited for the evaluation of solid organs and vascular structures due to the lack of intravenous contrast. Lung bases are clear. Liver is unremarkable. Gallbladder surgically absent. No biliary dilatation. The pancreas, spleen, and adrenal glands are unremarkable. Kidneys are symmetric. No renal calculi visualized. No hydronephrosis or ureteral obstruction. Urinary bladder contour is unremarkable. No intra- abdominal free air or free fluid. 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 No bowel obstruction. Moderate volume of formed stool th roughout the colon. No aortic aneurysm. IVC is right-sided. No acute osseous abnormality. IMPRESSION: 1. No acute findings. 2. Moderate volume of formed stool in the colon can be seen with constipation. Finalized by Tavo Fregoso MD on 05/07/2025 4:39 AMNormalPremier Health Atrium Medical CenterCT BRAIN WO CONTon 93-31-2061AN BRAIN WO CONTCT BRAIN WO CONT Exam: CT brain without contrast. CLINICAL HISTORY: Dizzy. Headache. TECHNIQUE: CT brain without intravenous contrast. All CT scans at this facility use dose modulation, iterative reconstruction, and/or weight based dosing when appropriate to reduce radiation dose to as low as reasonably achievable COMPARISON: 09/18/2012 FINDINGS: No evidence of hemorrhage. No mass or mass effect. No CT evidence of acute ischemia/infarct. The midline structures are intact, no midline shift. The ventricles and basal cisterns are unremarkable. The brainstem and cerebellum are unremarkable. The paranasal sinuses and mastoid air cells are well aerated. No acute osseous abnormality. IMPRESSION: No acute intracranial pathology by CT. Finalized by Tavo Fregoso MD on 05/07/2025 4:36 [facility], Cancer CenterDRUG SCREEN, URINEon 81-45-6137CCDSYPPQJIR/METHAMPNegativeNormalNegative [facility] Centera [facility] CenterComment on above:Order Comment: Confirmation available upon request.Result Comment: AMPH/METH screening cut off = 1000 ng/mLPerformed By: #### CBCA, CMP #### [facility] ([id number]) [address] [place] [address], [place], [place] [address]QQIFYAKPESIMJntziqysMqxhmoKbyqvipiYllWyxxvw [facility] Comment on above:Order Comment: Confirmation available upon request.Result Comment: Barbiturates screening cut off value = 200 ng/mLPerformed By: #### CBCA, CMP #### [facility] ([id number]) [address] [place] [address], [place], [place] [address]ZYZOULPTNGPUFWTZweedyafHidalzSpvmaoqiEjdPswiot [facility] Comment on above:Order Comment: Confirmation available upon request.Result Comment: Benzodiazepines screening cut off value = 200 ng/mLPerformed By: #### CBCA, CMP #### [facility] ([id number]) [address] [place] [address] [place] [address]YGVRGMRFZCQBNwzdranvAmkfsiQwpymnjzKizUwhffi [facility] Comment on above:Order Comment: Confirmation available upon request.Result Comment: Cannabinoids/THC screening cut off value = 50 ng/mLPerformed By: #### CBCA, CMP #### [facility] ([id number]) [address] [place] [address] [place] [address]FTHUQNX METABOLITENegativeNormalNegTogus VA Medical CenterComment on above:Order Comment: Confirmation available upon request. Result Comment: Cocaine screening cut off value = 300 ng/mLPerformed By: #### CBCA, CMP #### [facility] ([id number]) [address] [place] [address] 23892EORJUDBWukidptkHsnbbmFpawaunbBowPlpvvx [facility] HospitalComment on above:Order Comment: Confirmation available upon request.Result Comment: Ecstasy screening cut off value = 500 ng/mLPerformed By: #### CBCA, CMP #### [facility] ([id number]) [address] [place] [address]JAONJFWKWChtnkwouOtbqboSgqqgomcHhjGqgbpo [facility] Comment on above:Order Comment: Confirmation available upon request.Result Comment: Methadone screening cut off value = 300 ng/mL.Performed By: #### CBCA, CMP #### [facility] ([id number]) [address] [place] [address] 63157AECAMOQVkcnzggoGvjslrdkUsrydphaSxwHbcjzj [facility] Comment on above:Order Comment: Confirmation available upon request.Result Comment: Opiates screening cut off value = 300 ng/mL This test is used for the detection of codeine, hydrocodone (>1000 ng/mL), morphine and hydromorphone (>900 ng/mL) in urine.Performed By: #### CBCA, CMP #### [facility] ([id number]) [address] [place] [address] 22503KJMXZYUNCYmrvvlkfFmfrfuUnyimcwcZvcAlcaxt [facility] Comment on above:Order Comment: Confirmation available upon request.Result Comment: Oxycodone screening cut off value = 300 ng/mL This test is used for the detection of oxycodone and oxymorphone in urine.Performed By: #### CBCA, CMP #### [facility] ([id number]) [address] [place] [address] 32352EILHFPXJECNIBRkwcqfgrKncazqOpfwkfyfMaeIskyii [facility] Comment on above:Order Comment: Confirmation available upon request.Result Comment: Phencyclidine screening cut off value = 25 ng/mLPerformed By: #### CBCA, CMP #### [facility] ([id number]) [address] [place] [address] 49026YHCZVMJso 28-54-7989Exjokli [Mass/Vol]mg/dLNormal<=0.080 [facility] Medical CenterComment on above:Result Comment: This report is intended for use in clinical monitoring or management of patients.Performed By: #### ALCO ####[facility] ([address] VIRLACTATE W/ REFLEXon 66-99-7159TUIUDDS W/REFLEX0.8 mmol/LNormal0.4-2.0Prem[facility] Atrium Medical CenterComment on above:Order Comment: Result did not trigger repeat Lactate,re-order if needed.Performed By: #### LACTS ####[facility] ([address] [address] VIRPOCT NURSING URINE MACROSCOPIC UAon 83-58-5105YMKHFHSCX NURNegativeNormalNegativePremier Health Atrium Medical CenterComment on above:Performed By: #### CBCA, CMP #### [facility] ([id number]) [address] [place] [address] [place] [address]RZKFO/HGB NURModerateAbLakeHealth Beachwood Medical Center Comment on above:Performed By: #### CBCA, CMP #### [facility] ([id number]) [address] [place] [address], [place] [address]QSTEFOI NURNegativeArrowsmithNegTogus VA Medical Center Comment on above:Performed By: #### CBCA, CMP #### [facility] ([id number]) [address] [place] [address] [place] [address]RODEKTZ NURNegativeNormalNegTogus VA Medical Center Comment on above:Performed By: #### CBCA, CMP #### [facility] ([id number]) [address] [place] [address] [place] [address]BVFFIBNWH ESTERASE NURNegativeNormalNegTogus VA Medical CenterComment on above:Performed By: #### CBCA, CMP #### [facility] ([id number]) [address] [place] [address] [place] [address]WLIHLPJ NURNegativeNormalNegTogus VA Medical Center Comment on above:Performed By: #### CBCA, CMP #### [facility] ([id number]) [address] [place] [address] [place] [address]EI NUR6.3Dlpoid8.0, 6.0, 6.5, 7.0, 7.5, 8.0, 8.5, 5.5Pro[facility] Health CenterComment on above:Performed By: #### CBCA, CMP #### [facility] ([id number]) [address] [place] [address] [place] [address]BAJHTJP NURNegativeNormalNegativePremier Health Atrium Medical Center Comment on above:Performed By: #### CBCA, CMP #### [facility] ([id number]) [address] [place] [address] 56510ELUMWGMP GRAVITY NUR1.992Gkwdrq1.010, 1.015, 1.020, 1.025 [facility] Medical CenterComment on above:Performed By: #### CBCA, CMP #### [facility] ([id number]) [address] [place] [address] 478[address]QHBXEJEANTDH NUR1.0 E.U./dLNormalPremier Health Atrium Medical Center Comment on above:Performed By: #### CBCA, CMP #### [facility] ([id number]) [address] [place] [address] 95263LVIF , URINE (NUCG)on 77-27-4218Atyg HCG ( test) Ql (U)NegativeNormalNegative, IndeterminatePremier Health Atrium Medical Center Comment on above:Performed By: #### CBCA, CMP #### [facility] ([id number]) [address] [place] [address] 58472GHWUTHSI I, HIGH SENSITIVITY 0 HOURon 75-48-7305NEWLBBEW I, HIGH SENSITIVITY<^2Normal<16Prem[facility]rium Medical CenterComment on above:Performed By: #### TNIHS0 ####[facility] [place] [address] VIRURINALYSISon 94-98-8205Shylkgvtw Ql (U)NegativeNormal NegativePremier Health Atrium Medical CenterComment on above:Order Comment: Urine received without preservative. Delays in transport may affect results. Interpret with caution. A clinical correlation is recommended.Performed By: #### CBCA, CMP #### [facility] ([id number]) [address] [place] [address] 08828VBIZI/HGBModerateAbnormalNegativePremier Health Atrium Medical Center Comment on above:Order Comment: Urine received without preservative. Delays in transport may affect results. Interpret with caution. A clinical correlation is recommended.Performed By: #### CBCA, CMP #### [facility] ([id number]) [address] [place] [address] 46412XB OXALATE CRYSTALSPresentAbnormalNonOhioHealth Riverside Methodist HospitalComment on above:Order Comment: Urine received without preservative. Delays in transport may affect results. Interpret with caution. A clinical correlation is recommended.Performed By: #### CBCA, CMP #### [facility] ([id number]) [address] [place] [address] 07104Htlbg (U)YellowNormalYellow, ColorlessPremier Health Atrium Medical CenterComment on above:Order Comment: Urine received without preservative. Delays in transport may affect results. Interpret with caution. A clinical correlation is recommended.Performed By: #### CBCA, CMP #### [facility] ([id number]) [address] [place] [address] 01154Zxliiba Ql (U)NegativeNormalNegative, 250 mg/dLPremier Health Atrium Medical CenterComment on above:Order Comment: Urine received without preservative. Delays in transport may affect results. Interpret with caution. A clinical correlation is recommended.Performed By: #### CBCA, CMP #### [facility] ([id number]) [address] [place] [address] 14204Hgebnel Ql (U)NegativeNormalNegativePremier Health Atrium Medical Center Comment on above:Order Comment: Urine received without preservative. Delays in transport may affect results. Interpret with caution. A clinical correlation is recommended.Performed By: #### CBCA, CMP #### [facility] ([id number]) [address] [place] [address] 51158Vdafekhxn esterase Test strip Ql (U)NegativeNormalNegative [facility] on above:Order Comment: Urine received without preservative. Delays in transport may affect results. Interpret with caution. A clinical correlation is recommended.Performed By: #### CBCA, CMP #### [facility] ([id number]) [address] [place] [address] 45023Twmokku Ql (U)NegativeNormalNegativePremier Health Atrium Medical Center Comment on above:Order Comment: Urine received without preservative. Delays in transport may affect results. Interpret with caution. A clinical correlation is recommended.Performed By: #### CBCA, CMP #### [facility] ([id number]) [address] [place] [address] 70181KV,URINE6.3Zdgkmr7.0-8.5PLutheran HospitalComment on above:Order Comment: Urine received without preservative. Delays in transport may affect results. Interpret with caution. A clinical correlation is recommended.Performed By: #### CBCA, CMP #### [facility] ([id number]) [address] [place] [address]45[address]Gijablq Ql (U)NegativeNormalNegTogus VA Medical Center Comment on above:Order Comment: Urine received without preservative. Delays in transport may affect results. Interpret with caution. A clinical correlation is recommended.Performed By: #### CBCA, CMP #### [facility] ([id number]) [address] [place] [address] 40136X.B.PYSQL30Bmob1-4RlcOroocuLutheran HospitalComment on above: Order Comment: Urine received without preservative. Delays in transport may affect results. Interpret with caution. A clinical correlation is recommended. Performed By: #### CBCA, CMP #### [facility] ([id number]) [address] [place] [address] 36966Akatxqyq gravity (U) [Rel density]1.440Qbtsri0.003-1.035 ProMedicRanch[facility] Springs Medical CenterComuniversity of mich[facility] on above:Order Comment: Urine received without preservative. Delays in transport may affect results. Interpret with caution. A clinical correlation is recommended.Performed By: #### CBCA, CMP #### [facility] ([id number]) [address], [place] [address]IKMPHKKL UZRQVDPVGI4Jafvrb5-7LdsHddgow [facility] Health CenterComment on above:Order Comment: Urine received without preservative. Delays in transport may affect results. Interpret with caution. A clinical correlation is recommended.Performed By: #### CBCA, CMP #### [facility] ([id number]) [address] [place] [address] 77668DSJOPWTKSBvqmdQlycctLkbmrWojQbeglm [facility] HospitalComment on above:Order Comment: Urine received without preservative. Delays in transport may affect results. Interpret with caution. A clinical correlation is recommended.Performed By: #### CBCA, CMP #### [facility] ([id number]) [address] [place] [address] 66495ZOVPGLLATXWB7.0 eu/dLNormal0.2 eu/dL, 1.0 eu/dLPremier Health Atrium Medical CenterComment on above:Order Comment: Urine received without preservative. Delays in transport may affect results. Interpret with caution. A clinical correlation is recommended.Performed By: #### CBCA, CMP #### [facility] ([id number]) [address] [place] [address] 93621R.B.ISBGS1Njglqm3-2AudOqlqraLutheran HospitalComment on above: Order Comment: Urine received without preservative. Delays in transport may affect results. Interpret with caution. A clinical correlation is recommended. Performed By: #### CBCA, CMP #### [facility] ([id number]) [address] [place] [address] 57730Jqvou Cultureon 23-88-6182Irykjijk identified Cx Nom (U)50,000 colonies/ml mixed bacterial skin contaminants 2 Days PERFORMED BY: [address] [address] PATHOLOGIST DRY CHAIN OPERATOR DEBBIE BAEZA M.D.[facility] Physician GroupComment on above: Performed By: #### CUU #### [place] [id number] [facility] CENTERFollow-Upon 69-04-5480Aontxd-[id number] Elvi Moore 1980 Provider Department Center 04/24/2025 75668-SYZADMIGDALIA STEVEN MP PAIN Medical Pavi Family History Problem Relation Age of Onset Brain cancer Mother Breast cancer Sister Kidney cancer Maternal Grandmother Prostate cancer Paternal Grandfather Cancer Father Cancer Sister Family Status - Relation Status Age at Mother Sister Maternal Grandmother Paternal Grandfather Father Sister Level of Service:84047 NC OFFICE/OUTPATIENT ESTABLISHED MOD MDM 30 MIN Reason for Visit and Comments: Med Management [[id number]] - Refill [place] and Lyrica Pill count No bottle Follow-up [332429] - [facility]NormalUniAdena Regional Medical CenterRefillon [id number] Elvi Moore 1980 Provider Department Center 03/29/2025 56411-HFTSTMIGDALIA STEVEN MP PAIN Medical Pavi Family History Problem Relation Age of Onset Brain cancer Mother Breast cancer Sister Kidney cancer Maternal Grandmother Prostate cancer Paternal Grandfather Cancer Father Cancer Sister Family Status - Relation Status Age at Mother Sister Maternal Grandmother Paternal Grandfather Father Sister Reason for Visit and Comments: Med Refill [[id number]][facility] [id number] Elvi Moore 1980 Provider Department Center 03/29/2025 Abby-RUKHSANA MILLER MP PAIN Medical Pavi Family History Problem Relation Age of Onset Brain cancer Mother Breast cancer Sister Kidney cancer Maternal Grandmother Prostate cancer Paternal Grandfather Cancer Father Cancer Sister Family Status - Relation Status Age at Mother Sister Maternal Grandmother Paternal Grandfather Father Sister Reason for Visit and Comments: Med Refill [[id number]][facility] LimaIGP,APTIMA HPV,AGE GDLNon 25-23-6008MVA GDLN ACOG TESTINGNote.NOMS HealthcareComment on above:TESTS RESULT FLAG UNITS REF RANGE LAB Clinician Provided Cytology Information Source.............Cervix No. of containers..01 ThinPrep Vial Age Cortney WARNER Yue... FLAG LEGEND: L-Low Normal,H-High Normal,LL-Alert Low,HH-Alert High <-Panic Low,>-Panic High,A-Abnormal,AA-Critical Abnormal Performed at: 01 =[address] [address] Rosy Madrigal MD, HPV APTIMANegativeNegativeNOMS HealthcareComment on above:This nucleic acid amplification test detects fourteen high- risk HPV types (16,18,31,33,35,39,45,51,52,56,58,59,66,68) without differentiation. Performed at: =[address] [id number] Land Leasing Examiner: Rosy Madrigal MD, Phone: [phone] Performed at: [address] [id number] Land Leasing Examiner: Rosy Madrigal MD, Phone: [phone] IGP, APTIMA HPV, RFX 16/18,45Note.NOMS HealthcareComment on above:TESTS RESULT FLAG UNITS REF RANGE LAB DIAGNOSIS: 02 NEGATIVE FOR INTRAEPITHELIAL LESION OR MALIGNANCY. Specimen adequacy: 02 Satisfactory for evaluation. No endocervical component is identified. Performed by: 02 Elizabeth Garza, Floor Winder (ASCP) . 02 Note: Note 02 The [...] <-Panic Low,>-Panic High,A-Abnormal,AA-Critical Abnormal Performed at: [address] [address] Rosy Madrigal MD, BRUSH-SPATULA CERVIX CLINISYNCNOMS HealthcareRefillon [id number] Elvi Moore 1980 Date Provider Department Center 02/26/2025 RUKHSANA ESPINOZA PAIN Medical Pavi Family History Problem Relation Age of Onset Brain cancer Mother Breast cancer Sister Kidney cancer Maternal Grandmother Prostate cancer Paternal Grandfather Cancer Father Cancer Sister Family Status - Relation Status Age at Mother Sister Maternal Grandmother Paternal Grandfather Father Sister Reason for Visit and Comments: Med Refill [[id number]][facility] LimaFollow-Upon 10-46-0192Nmtazv-[id number] Elvi Moore 1980 F Date Provider Department Center 01/26/2025 170-RUKHSANA MILLER MP PAIN Medical Pavi Family History Problem Relation Age of Onset Brain cancer Mother Breast cancer Sister Kidney cancer Maternal Grandmother Prostate cancer Paternal Grandfather Cancer Father Cancer Sister Family Status - Relation Status Age at Mother Sister Maternal Grandmother Paternal Grandfather Father Sister Level of Service:03390 NC OFFICE/OUTPATIENT ESTABLISHED MOD MDM 30 MIN Reason for Visit and Comments: Follow-up [534131] - Failed GTB Med Refill [[id number]] - Lyrica Med Management [[id number]] - Refill [place] Pill Count No bottleNormalCleveland Clinic Euclid HospitalC DIFFICILE BY PCR on 01-11-2025. difficile toxin genes MAMIE+probe Ql (Stl)TOXIGENIC C DIFF Negative (qualifier value) 027 NAP1 Negative (qualifier value)NormalPRNEGProLamb Healthcare CenterComment on above: Performed By: #### 88523-7 ####[facility] ([id number])[address] [place] [address], [address] [address]#### 136[address]-7 ####[facility] ([id number])[address] [place] [address]JMHJIYMEMORIAL HEALTH SYSTEM [facility]ET[facility] ([id number])[address] [place] [address], [address] [address]OLP AND AUTO DIFFon 39-85-3982KWZJMNPH BASOPHIL0.0 X10E9/LNormal0.0-0.2Pro[facility] Health CenterComment on above:Performed By: #### CBCA, PINR, 38815-8, CMP, 3040-3 #### [facility] ([id number]) [address] [place] [address] 26469LXAWGVNB NEUTROPHIL5.0 X10E9/LNormal1.5-6.6ProLamb Healthcare CenterComment on above:Performed By: #### CBCA, PINR, 78062-6, CMP, 3040-3 #### [facility] ([id number]) [address] [place] [address] 85[address]Bqvismpor/100 WBC (Bld)0.2 %NormalPremier Health Atrium Medical Center Comment on above:Performed By: #### CBCChristine, PINR, 11804-5, CMP, 3040-3 #### [facility] ([id number]) [address] [place] [address] 61845Mdysqobulld (Bld) [#/Vol]0.0 10*3/uLNormal0.0-0.4Prem[facility] Atrium Medical CenterComment on above:Performed By: #### CBCA, PINR, 71188-7, CMP, 3040-3 #### [facility] ([id number]) [address] [place] [address] 50062Xcujgfagyzy/100 WBC (Bld)0.4 %NormalPremier Health Atrium Medical Center Comment on above:Performed By: #### CBCChristine, PINR, 98342-2, CMP, 3040-3 #### [facility] ([id number]) [address] [place] [address] 93550Slyprknkddl distribution width (RBC) [Ratio]18.6 %High11.5-15.0 [facility] Medical CenterComment on above:Performed By: #### CBCChristine, PINR, 14253- 9, CMP, 3040-3 #### [facility] ([id number]) [address] [place] [address] 75977Oafvzhkfns (Bld) [Volume fraction]36.9 %Qudjcm50-39TyzDkywkfLamb Healthcare CenterComment on above:Performed By: #### CBCA, PINR, 65077-7, CMP, 3040-3 #### [facility] ([id number]) [address] [place] [address] 61306Urjnfxnrro (Bld) [Mass/Vol]11.8 g/oZJfedef19.7-15.5Pro[facility] Health CenterComment on above:Performed By: #### CBCA, PINR, 93498-9, CMP, 3040-3 #### [facility] ([id number]) [address] [place] [address] 77468Tedimbenilr (Bld) [#/Vol]1.8 10*3/uLNormal1.0-3.5PLutheran HospitalComment on above:Performed By: #### CBCA, PINR, 69206-1, CMP, 3040-3 #### [facility] ([id number]) [address] [place] [address] 71807Smajqcywnly/100 WBC (Bld)22.5 %NormalPremier Health Atrium Medical Center Comment on above:Performed By: #### CBCA, PINR, 34537-9, CMP, 3040-3 #### [facility] ([id number]) [address] [place] [address] 56656JJF (RBC) [Entitic mass]25.2 vkXgi52-42IdsFdjacbPremier Health Atrium Medical CenterComment on above:Performed By: #### CBCA, PINR, 27408-4, CMP, 3040-3 #### [facility] ([id number]) [address] [place] [address] 7[address]TEZY (RBC) [Mass/Vol]32.1 g/sCYxswfn89-03KavHsbshfPremier Health Atrium Medical CenterComment on above:Performed By: #### CBCA, PINR, 07752-4, CMP, 3040-3 #### [facility] ([id number]) [address] [place] [address] 68616ITM (RBC) [Entitic vol]78 pGXnu49-785XfcEnonlvPremier Health Atrium Medical Center Comment on above:Performed By: #### CBCA, PINR, 62620-0, CMP, 3040-3 #### [facility] ([id number]) [address] [place] [address] 36468Zbryfabei (Bld) [#/Vol]1.0 10*3/uLHigh0-0.9Prem[facility] Atrium Medical CenterComment on above:Performed By: #### CBCA, PINR, 00188-3, CMP, 3040-3 #### [facility] ([id number]) [address] [place] [address] 67939Qtqhzpbqv/100 WBC (Bld)13.1 %[facility] Comment on above:Performed By: #### CBCA, PINR, 52498-9, CMP, 3040-3 #### [facility] ([id number]) [address] [place] [address] 33076Bwgmpyfwevp/100 WBC (Bld)63.8 %[facility] Comment on above:Performed By: #### CBCA, PINR, 45321-5, CMP, 3040-3 #### [facility] ([id number]) [address] [place] [address] 44363Heldjjmf mean volume (Bld) [Entitic vol]7.9 fLNormal7-12 [facility] Medical CenterComment on above:Performed By: #### CBCA, PINR, 08988- 9, CMP, 3040-3 #### [facility] ([id number]) [address] [place] [address] 56109Lsujzxyxh (Bld) [#/Vol]289 10*3/qHOmdntf846-957ZalQmprdr [facility]remont HospitalComment on above:Performed By: #### CBCA, PINR, 45666-7, CMP, 3040-3 #### [facility] ([id number]) [address] [place] [address] 32623HFS COUNT4.70 X10E12/LNormal3.80-5.20[facility] Comment on above:Performed By: #### CBCA, PINR, 90995-8, CMP, 3040-3 #### [facility] ([id number]) [address] [place] [address] [place] [address]OSB (Bld) [#/Vol]7.8 10*3/uLNormal4.0-11.0ProLamb Healthcare CenterComment on above:Performed By: #### CBCChristine, PINR, 97189-2, CMP, 3040-3 #### [facility] ([id number]) [address] [place] [address] [place] [address]FEPPICHNKWSPN METABOLIC PANELon 20-68-9203Gtrxjdo [Mass/Vol]3.8 g/dLNormal3.2-5.3PLutheran HospitalComment on above:Performed By: #### CBCChristine, PINR, 83552-9, CMP, 3040-3 #### [facility] ([id number]) [address] [place] [address] [place] [address]ZKQ [Catalytic activity/Vol]95 U/MUqotue85-517GrwTflxwvLamb Healthcare CenterComment on above:Performed By: #### CBCChristine, PINR, 31943-8, CMP, 3040-3 #### [facility] ([id number]) [address] [place] [address], [place] [address]MOS [Catalytic activity/Vol]21 U/LNormal0-31PLutheran HospitalComment on above:Performed By: #### CBCA, PINR, 52957-2, CMP, 3040-3 #### [facility] ([id number]) [address] [place] [address], [place] [address]Prjdt gap [Moles/Vol]7 mmol/LNormal5-15ProLamb Healthcare CenterComment on above:Performed By: #### CBCA, PINR, 12910-7, CMP, 3040-3 #### [facility] ([id number]) [address] [place] [address], [place] [address]WDO [Catalytic activity/Vol]35 U/LNormal0-41ProLamb Healthcare CenterComment on above:Performed By: #### CBCChristine, PINR, 06748-7, CMP, 3040-3 #### [facility] ([id number]) [address] [place] [address], [place] [address]Raihyguca [Mass/Vol]0.7 mg/dLNormal0.3-1.2PLutheran HospitalComment on above:Performed By: #### CBCA, PINR, 83468-8, CMP, 3040-3 #### [facility] ([id number]) [address] [place] [address], [place] [address]Boobrap [Mass/Vol]8.4 mg/dLLow8.5-10.5PLutheran HospitalComment on above:Performed By: #### CAMILLE, PINR, 55184-4, CMP, 3040-3 #### [facility] ([id number]) [address] [place] [address], [place] [address]Ndrixcjp [Moles/Vol]101 mmol/YSzcmlh52-356ZzaZjcyaiLamb Healthcare CenterComment on above:Performed By: #### CAMILLE, PINR, 90770-8, CMP, 3040-3 #### [facility] ([id number]) [address] [place] [address], [place] [address]BT1 [Moles/Vol]26 mmol/OJmhbud69-74ZtnTchqkkLutheran Hospital Comment on above:Performed By: #### CBCA, PINR, 71050-4, CMP, 3040-3 #### [facility] ([id number]) [address] [place] [address], [place] [address]Qzuulkyxbj [Mass/Vol]2.63 mg/dLHigh0.40-1.00Premier Health Atrium Medical CenterComment on above:Result Comment: METHOD TRACEABLE TO IDMS STANDARD Performed By: #### CBCA, PINR, 90229-5, CMP, 3040-3 #### [facility] ([id number]) [address] [place] [address] 74020DNF/1.73 sq M.predicted among non-blacks MDRD (S/P/Bld) [Vol rate/Area]22 mL/min/{1.73_m2}Low>59ProLamb Healthcare CenterComment on above: Result Comment: Reported eGFR is based on the CKD-EPI 2020 equation that does not use a race coefficient.Performed By: #### MINNA OBRIEN, 65499-0, CMP, 3040-3 #### [facility] ([id number]) [address] [place] [address] 55696Tmfhgdb [Mass/Vol]102 mg/wEHfrt41-46MbbCuznszPremier Health Atrium Medical Center Comment on above:Performed By: #### MINNA OBRIEN, 58087-7, CMP, 3040-3 #### [facility] ([id number]) [address] [place] [address] 64633Oujkofvoj [Moles/Vol]4.7 mmol/LNormal3.5-5.0ProLamb Healthcare CenterComment on above:Performed By: #### MINNA OBRIEN, 32630-6, CMP, 3040-3 #### [facility] ([id number]) [address] [place] [address]2203Aihrvyf [Mass/Vol]7.0 g/dLNormal6.0-8.0ProLamb Healthcare CenterComment on above:Performed By: #### JENNIFER OBRIENR, 69880-7, CMP, 3040-3 #### [facility] ([id number]) [address] [place] [address] 48086Rnmfwz [Moles/Vol]134 mmol/KQgmenc375-745QjtQdvoml Fremont HospitalComment on above:Performed By: #### JENNIFER OBRIENR, 91267-9, CMP, 3040-3 #### [facility] ([id number]) [address] [place] [address] 65256Onas nitrogen [Mass/Vol]36 mg/dLHigh5-23Premier Health Atrium Medical CenterComment on above:Performed By: #### CBCA, PINR, 12240-5, CMP, 3040-3 #### [facility] ([id number]) [address] [facility], FIRST FLO[address] [place], [place] [address]ZF ABDOMEN AND PELVIS WO CONTon 39-63-3088DV ABDOMEN AND PELVIS WO CONTCT ABDOMEN AND PELVIS WO CONT History:Bloody stools. [...] or urinary bladder. No signs of obstruction. Nofree air or free fluid. No enlarged lymph nodes. No abdominal aortic aneurysm.. No acute process isnoted in the unenhanced liver, spleen, gallbladder, adrenal glands or kidneys. Prior cholecystectomy. Suture material compatible with prior bariatric type surgery is noted CT pelvis: No dilated bowel loops or pericolonic fat stranding. No enlarged pelvic or inguinal lymph nodes. Nofree fluid. Evaluation of the bowel is hampered [...] by Yvette Andrade MD on 01/11/2025 12:44 PMNormalPremier Health Atrium Medical Center GI PANELon 28-39-8495Ioxlcdtctnimgivo pathogens DNA and RNA panel MAMIE+non-probe (Stl)SPECIMEN SOURCE STOOL CAMPYLOBACTER Not detected (qualifier value) [...] detected (qualifier value) SAPOVIRUS Not detected (qualifier value)NormalNDETProMedica West Valley Hospital And Health CenterComment on above:Performed By: #### 52248-0 ####[facility] ([id number])[address] [address]#### 62297-1 ####[facility] ([id number])[address] [place] [address] 14121FKKDGLMEMORIAL HEALTH SYSTEM [facility]ET[facility] ([id number])[address] [address]SCJCTJos 99-42-2333Xzzlye [Catalytic activity/Vol]29 U/NMbppfq40-82 ProMOrthopaedic HospitalComment on above:Performed By: #### MINNA OBRIEN, 44882- 9, CMP, 3040-3 #### [facility] ([id number]) [address] [place] [address] 52704PMYUQTU AND INRon 94-70-8528UQS Coag (PPP) [Relative time]0.9 {INR}Normal0.9-1.2PLutheran HospitalComment on above:Performed By: #### CAMILLE PINR, 55447-6, CMP, 3040-3 #### [facility] ([id number]) [address] [place] [address] 79[address]MP Coag (PPP) [Time]10.9 sNormal9.8-13.2PLutheran HospitalComment on above:Result Comment: NEW REFERENCE RANGEPerformed By: #### JENNIFER OBRIENR, 78037-4, CMP, 3040-3 #### [facility] ([id number]) [address] [place] [address] [place] [address]ZHN MACROSCOPIC NURon 87-02-9695WNIMSREXT NURMODERATEAbnormal NEGPremier Health Atrium Medical CenterComuniversity of michigan health–west on above:Performed By: #### NUM ####[facility] ([id number])[address] [place] [address] [place] [address]THHCR/HGB NURNegativeNormalNEGProLamb Healthcare CenterComment on above: Performed By: #### NUM ####[facility] ([id number])[address] [place] [address] [place] [address]GCVJSFO NURNegativeNormalNEGProLamb Healthcare CenterComment on above:Performed By: #### NUM ####[facility] ([id number])[address] [place] [address] [place] [address]ALKOUVK NURTraceAbnormalNEGProLamb Healthcare CenterComment on above:Performed By: #### NUM ####[facility] ([id number])[address] [place] [address] [place] [address]XCCAKKTHA ESTERASE NURNegativeNormalNEGPremier Health Atrium Medical CenterComuniversity of [facility] on above:Performed By: #### NUM ####[facility] ([id number])[address] [place] [address] [place] [address]JLZPUHY JUNIOR NegativeNormalNEGProLamb Healthcare CenterComment on above:Performed By: #### NUM ####[facility] ([id number])[address] [place] [address] [place] [address]IH NUR5.9Hfskqt1.0-8.5ProMedica [facility] Valley Hospital And Health CenterComment on above:Performed By: #### NUM ####[facility] ([id number])[address] [place] [address] [place] [address]HGJRWBB OAC664 mg/dLAbnormalNEG Pro[facility] Hospital And Health CenterComment on above:Performed By: #### NUM ####[facility] ([id number])[address] [place] [address] 29328SQKYHJXA GRAVITY NUR1.980Eyyeso1.003-1.035ProLamb Healthcare CenterComment on above:Performed By: #### NUM ####[facility] ([id number])[address] [place] [address] 47636XOWYFRMVHPSE NUR0.2 eu/dLNormal <1.1ProMedica [facility] Valley Hospital And Health CenterComment on above:Performed By: #### NUM ####[facility] ([id number])[address] [place] [address] 62174wNQQ Coag (PPP) [Time]on 63-91-5718bEOS Coag (Bld) [Time]32 s Dmsjmr22-91SegWbxavuLamb Healthcare CenterComment on above:Result Comment: NEW REFERENCE RANGEPerformed By: #### CBCA, PINR, 87232-1, CMP, 3040-3 #### [facility] ([id number]) [address] [place] [address] 4376499ta 82-99-156928Hinp to St. Elizabeth HospitalOrders Onlyon 83-68-3213Migoeh [id number] Elvi Moore 1980 F Date Provider Department Center 01/02/2025 99840-CSDMZMIGDALIA MOE PAIN Medical [facility]avi Family History Problem Relation Age of Onset Brain cancer Mother Breast cancer Sister Kidney cancer Maternal Grandmother Prostate cancer Paternal Grandfather Cancer Father Cancer Sister Family Status - Relation Status Age at Mother Sister Maternal Grandmother Paternal Grandfather Father SisterNormalUniversity Veterans Health AdministrationRefillon [id number] Elvi Moore 1980 F Date Provider Department Center 01/01/2025 170-RUKHSANA MILLER PAIN Medical Pavi Family History Problem Relation Age of Onset Brain cancer Mother Breast cancer Sister Kidney cancer Maternal Grandmother Prostate cancer Paternal Grandfather Cancer Father Cancer Sister Family Status - Relation Status Age at Mother Sister Maternal Grandmother Paternal Grandfather Father Sister Reason for Visit and Comments: Med Refill [[id number]][facility] LimaFollow-Upon [id number] Elvi Moore 1980 F Date Provider Department Center 12/25/2024 MONIQUE COON MP ORTHO MPORTHO Family History Problem Relation Age of Onset Brain cancer Mother Breast cancer Sister Kidney cancer Maternal Grandmother Prostate cancer Paternal Grandfather Cancer Father Cancer Sister Family Status - Relation Status Age at Mother Sister Maternal Grandmother Paternal Grandfather Father Sister Level of Service:37259 NC OFFICE/OUTPATIENT ESTABLISHED MOD MDM 30 MIN () Reason for Visit and Comments: Edema [[id number]] - Hx l knee revision & TKA - States she took a fall when her knee gave out last week and when she fell she heard the loudest pop and her pain has been severe since Follow-up [187849] - Hx l knee revision & TKA [...] pop and her pain has been severe sinceNormalUniversOhioHealth Riverside Methodist Hospital36on 97-21-605[address]Aytr to [address]. Elizabeth HospitalCBC AND AUTO DIFF on 83-38-0245RRKQZKSC BASOPHIL0.0 X10E9/LNormal0.0-0.2[facility] Comment on above:Performed By: #### CAMILLE, CMP #### [facility] ([id number]) [address] [place] [address], [address] FLO[address] [place], [place] [address]RRDVVECQ NEUTROPHIL2.6 X10E9/LNormal1.5-6.6Pro[facility]ica [facility] Hospital And Health CenterComment on above:Performed By: #### CBCA, CMP #### [facility] ([id number]) [address] [place] [address] 93097Gcuxkqqyn/100 WBC (Bld)0.3 %[facility] Comment on above:Performed By: #### CBCA, CMP #### [facility] ([id number]) [address] [place] [address] 27587Cofawdbjeqi (Bld) [#/Vol]0.1 10*3/uLNormal0.0-0.4Prem[facility] Health Atrium Medical CenterComment on above:Performed By: #### CBCA, CMP #### [facility] ([id number]) [address] [place] [address] 99956Hdcoudpmooc/100 WBC (Bld)1.6 %[facility] Comment on above:Performed By: #### CBCA, CMP #### [facility] ([id number]) [address] [place] [address] 44420Sxbyaplimat distribution width (RBC) [Ratio]16.0 %High11.5-15.0 Premier Health Atrium Medical CenterComment on above:Performed By: #### CBCA, CMP #### [facility] ([id number]) [address] [place] [address] 52220Pfoqgjelco (Bld) [Volume fraction]33.8 %Aqu79-47SmtZzvjmoLamb Healthcare CenterComment on above:Performed By: #### CBCA, CMP #### [facility] ([id number]) [address] [place] [address] 04802Ehsfotyfyc (Bld) [Mass/Vol]10.9 g/dLLow11.7-15.5Pro[facility] Hospital And Health CenterComment on above:Performed By: #### CBCA, CMP #### [facility] ([id number]) [address] [place] [address] 26451Frlggtpowvd (Bld) [#/Vol]2.0 10*3/uLNormal1.0-3.5PLutheran HospitalComment on above:Performed By: #### CBCA, CMP #### [facility] ([id number]) [address] [place] [address] 29556Vtsvgdnbvom/100 WBC (Bld)39.6 %[facility] Comment on above:Performed By: #### CBCA, CMP #### [facility] ([id number]) [address] [place] [address] 61371COQ (RBC) [Entitic mass]24.8 hfCet96-92BroKzeaejPremier Health Atrium Medical CenterComment on above:Performed By: #### CBCA, CMP #### [facility] ([id number]) [address] [place] [address] 29604RABI (RBC) [Mass/Vol]32.3 g/zBUhuhdu16-48MnzHnpoglPremier Health Atrium Medical CenterComment on above:Performed By: #### CBCA, CMP #### [facility] ([id number]) [address] [place] [address] 07992MHV (RBC) [Entitic vol]77 zQVcd03-646TeeXcxqiePremier Health Atrium Medical Center Comment on above:Performed By: #### CBCA, CMP #### [facility] ([id number]) [address] [place] [address] 88293Btawxutqs (Bld) [#/Vol]0.4 10*3/uLNormal0-0.9Prem[facility] Health Atrium Medical CenterComment on above:Performed By: #### CBCA, CMP #### [facility] ([id number]) [address] [place] [address] 86024Xtxkavzfy/100 WBC (Bld)6.9 %NormalPremier Health Atrium Medical Center Comment on above:Performed By: #### CBCA, CMP #### [facility] ([id number]) [address] [place] [address] 05570Lhdvdftfrvw/100 WBC (Bld)51.6 %NormalPremier Health Atrium Medical Center Comment on above:Performed By: #### CBCChristine, CMP #### [facility] ([id number]) [address] [place] [address] 44642Hwscmyhb mean volume (Bld) [Entitic vol]8.0 fLNormal7-12 [facility] Atrium Medical CenterComment on above:Performed By: #### CBCA, CMP #### [facility] ([id number]) [address] [place] [address], [place] [address]Lkojngkjv (Bld) [#/Vol]275 10*3/eWUxlawg794-310FjjLakolwPremier Health Atrium Medical CenterComment on above:Performed By: #### CBCChristine, CMP #### [facility] ([id number]) [address] [place] [address] 43901LJA COUNT4.40 X10E12/LNormal3.80-5.20[facility] Comment on above:Performed By: #### CAMILLE, CMP #### [facility] ([id number]) [address] [place] [address] 16090OZM (Bld) [#/Vol]5.1 10*3/uLNormal4.0-11.0Prem[facility] Health Atrium Medical CenterComment on above:Performed By: #### CBCA, CMP #### [facility] ([id number]) [address] [place] [address] 99739RCBCOHYGBXAFX METABOLIC PANELon 29-80-8558Sogpskf [Mass/Vol]4.2 g/dLNormal3.2-5.3PLutheran HospitalComment on above:Performed By: #### CBCA, CMP #### [facility] ([id number]) [address] [place] [address] 76162PIN [Catalytic activity/Vol]112 U/ZKwvgah59-565EgnXfinboLamb Healthcare CenterComment on above:Performed By: #### CAMILLE, CMP #### [facility] ([id number]) [address] [place] [address], [place] [address]LEK [Catalytic activity/Vol]13 U/LNormal0-31PLutheran HospitalComment on above:Performed By: #### CAMILLE, CMP #### [facility] ([id number]) [address] [place] [address], [place] [address]Vdczj gap [Moles/Vol]10 mmol/LNormal5-15ProLamb Healthcare CenterComment on above:Performed By: #### CAMILLE, CMP #### [facility] ([id number]) [address] [place] [address] 03133WPV [Catalytic activity/Vol]18 U/LNormal0-41ProLamb Healthcare CenterComment on above:Performed By: #### CBCChristine, CMP #### [facility] ([id number]) [address] [place] [address], [place] [address]Ccwyvrqdf [Mass/Vol]0.5 mg/dLNormal0.3-1.2PLutheran HospitalComment on above:Performed By: #### CBCChristine, CMP #### [facility] ([id number]) [address] [place] [address], [place] [address]Fntoaup [Mass/Vol]8.9 mg/dLNormal8.5-10.5PLutheran HospitalComment on above:Performed By: #### CBCA, CMP #### [facility] ([id number]) [address] [place] [address], [place] [address]Dyqwpozb [Moles/Vol]103 mmol/JSklbrl77-408BymJirjrvLamb Healthcare CenterComment on above:Performed By: #### CBCA, CMP #### [facility] ([id number]) [address] [place] [address], [place] 24[address]UG7 [Moles/Vol]27 mmol/ABbyvmg75-33EtkPtsckdLutheran Hospital Comment on above:Performed By: #### CAMILLE, CMP #### [facility] ([id number]) [address] [place] [address] 77781Ridkvmgjby [Mass/Vol]0.69 mg/dLNormal0.40-1.00Prem[facility] Health Atrium Medical CenterComment on above:Result Comment: METHOD TRACEABLE TO IDMS STANDARD Performed By: #### CAMILLE, CMP #### [facility] ([id number]) [address] [place] [address] 56169mKAF (CKD-EPI) NON-RACE DEPENDENT>90Normal>59ProLamb Healthcare CenterComment on above:Result Comment: Reported eGFR is based on the CKD-EPI 2020 equation that does not use a race coefficient.Performed By: #### CAMILLE, CMP #### [facility] ([id number]) [address] [place] [address] 32734Lxwjgva [Mass/Vol]97 mg/wBZmmiov57-02NcuVdmcncPremier Health Atrium Medical Center Comment on above:Performed By: #### CAMILLE, CMP #### [facility] ([id number]) [address] [place] [address] 60320Cmxaojoln [Moles/Vol]4.0 mmol/LNormal3.5-5.0Prem[facility] Health Atrium Medical CenterComment on above:Performed By: #### CAMILLE, CMP #### [facility] ([id number]) [address] [place] [address] 69618Twibctm [Mass/Vol]7.3 g/dLNormal6.0-8.0ProLamb Healthcare CenterComment on above:Performed By: #### CAMILLE, CMP #### [facility] ([id number]) [address] [place] [address] 75623Xemngl [Moles/Vol]140 mmol/UMcqaol627-500TueXvdcjz Fremont HospitalComment on above:Performed By: #### CBCA, CMP #### [facility] ([id number]) [address] [place] [address], [facility], [place] [address]Dphf nitrogen [Mass/Vol]13 mg/dLNormal5-23ProLamb Healthcare CenterComment on above:Performed By: #### CBCChristine, CMP #### [facility] ([id number]) [address] [place] [address], [facility], [place] [address]NGA MACROSCOPIC NURon 71-86-5598LMHOTDLRE NURNegativeNormalNEG [facility] And Health CenterComment on above:Performed By: #### NUM #### [facility] ([id number]) [address] [place] [address], [place] [address]IAEPN/HGB NURLargeAbnormalNEGPremier Health Atrium Medical CenterComment on above:Performed By: #### NUM #### [facility] ([id number]) [address] [place] [address], [place] [address]GQGILDS NURNegativeNormalNEGPremier Health Atrium Medical CenterComment on above:Performed By: #### NUM #### [facility] ([id number]) [address] [place] [address], [place] 630[address]LNKKJDR NURTraceAbnormalNEGProLamb Healthcare CenterComment on above:Performed By: #### NUM #### [facility] ([id number]) [address] [place] [address], [place] [address]FNISHNULK ESTERASE NURNegativeNormalNEGPremier Health Atrium Medical CenterComment on above:Performed By: #### NUM #### [facility] ([id number]) [address] [place] [address], [place] 247[address]LPTCXJV NURNegativeNormalNEGPremier Health Atrium Medical CenterComment on above:Performed By: #### NUM #### [facility] ([id number]) [address] [place] [address] 91796YG NUR6.2Vecpfr2.0-8.5PLutheran HospitalComment on above:Performed By: #### NUM #### [facility] ([id number]) [address] [place] [address] 39783HRQFYPW NUR30 mg/dLAbnormalNEGProLamb Healthcare CenterComment on above:Performed By: #### NUM #### [facility] ([id number]) [address] [place] [address] 37007SQKMICPG GRAVITY JUNIOR>=1.802Btvgeh3.003-1.035Prem[facility] Health Atrium Medical CenterComment on above:Performed By: #### NUM #### [facility] ([id number]) [address] [place] [address] 47204ZGUSDALXBGUN NUR1.0 eu/dLNormal<1.1PLutheran Hospital Comment on above:Performed By: #### NUM #### [facility] ([id number]) [address] [place] [address] 71616LL ABDOMEN AP 1 VWon 70-28-7103VF ABDOMEN AP 1 VWXR ABDOMEN AP 1 VW XR ABDOMEN AP [...] Surgical clips project over the pelvis, epigastrium, andright upper quadrant. Finalized by Jaxon Merrill on 12/08/2024 6:44 PMNormalPremier Health Atrium Medical CenterHP on 32-21-4648JQWifo[address] [address] CC: No chief complaint on file. SUBJECTIVE: [...] this note were generated using voice recognition [employer] dictation software. Although every effort was made to ensure the accuracy of this automated oil field pipeline supervisor, some errors in oil field pipeline supervisor may have occurred.[facility] Hospital LimaNURSNOTEon 61-23-5051CFIFGEUG Interventional Pain Management Nursing Note / Nurse [...] Pain Frequency: Constant/continuous Pain Interventions: Medication (See MAR)[facility] LimaOrders Onlyon 13-15-7715Diilvi [id number] Blody,Elvi 1980 F Date Provider Department Center 12/05/2024 RUKHSANA ESPINOZA MP PAIN Medical Pavi Family History Problem Relation Age of Onset Brain cancer Mother Breast cancer Sister Kidney cancer Maternal Grandmother Prostate cancer Paternal Grandfather Cancer Father Cancer Sister Family Status - Relation Status Age at Mother Sister Maternal Grandmother Paternal Grandfather Father SisterNormalUniAdena Regional Medical CenterOrders Onlyon 09-06-5252Tiylsf [id number] Blody,Elvi 1980 F Date Provider Department Center 12/04/2024 46349-UBUFPMIGDALIA STEVEN MP PAIN Medical Pavi Family History Problem Relation Age of Onset Brain cancer Mother Breast cancer Sister Kidney cancer Maternal Grandmother Prostate cancer Paternal Grandfather Cancer Father Cancer Sister Family Status - Relation Status Age at Mother Sister Maternal Grandmother Paternal Grandfather Father SisterNormalUniAdena Regional Medical CenterRefillon [id number] Blody,Elvi 1980 F Date Provider Department Center 12/04/2024 RUKHSANA ESPINOZA MP PAIN Medical Pavi Family History Problem Relation Age of Onset Brain cancer Mother Breast cancer Sister Kidney cancer Maternal Grandmother Prostate cancer Paternal Grandfather Cancer Father Cancer Sister Family Status - Relation Status Age at Mother Sister Maternal Grandmother Paternal Grandfather Father Sister Reason for Visit and Comments: Med Refill [[id number]][facility] LimaFollow-Upon [id number] Owen Moorea 1980 F Date Provider Department Center 10/19/2024 RUKHSANA ESPINOZA MP PAIN Medical Pavi Family History Problem Relation Age of Onset Brain cancer Mother Breast cancer Sister Kidney cancer Maternal Grandmother Prostate cancer Paternal Grandfather Cancer Father Cancer Sister Family Status - Relation Status Age at Mother Sister Maternal Grandmother Paternal Grandfather Father Sister Level of Service:41332 NC OFFICE/OUTPATIENT ESTABLISHED LOW MDM 20 MIN Reason for Visit and Comments: Med Management [[id number]] - No bottles for pill count Patient educated on bringing bottles to every visit Follow-up [182808] - Left knee painNormalUniAdena Regional Medical Center Orders Onlyon 12-97-2832Vifqvn [id number] TeresaElvi 1980 F Date Provider Department Center 10/18/2024 [id number], NADINE MOCTEZUMA PAIN [facility] Family History Problem Relation Age of Onset Brain cancer Mother Breast cancer Sister Kidney cancer Maternal Grandmother Prostate cancer Paternal Grandfather Cancer Father Cancer Sister Family Status - Relation Status Age at Mother Sister Maternal Grandmother Paternal Grandfather Father SisterNormalUMount Carmel Health SystemRefillon [id number] [place] Mooreatha 1980 F Date Provider Department Center 10/07/2024 RUKHSANA ESPINOZA MP PAIN Medical [facility] Family History Problem Relation Age of Onset Brain cancer Mother Breast cancer Sister Kidney cancer Maternal Grandmother Prostate cancer Paternal Grandfather Cancer Father Cancer Sister Family Status - Relation Status Age at Mother Sister Maternal Grandmother Paternal Grandfather Father Sister Reason for Visit and Comments: Med [facility][id number][id number] TeresaElvi 1980 F Date Provider Department Center 09/12/2024 170RUKHSANA YADAV PAIN Medical [facility] Family History Problem Relation Age of Onset Brain cancer Mother Breast cancer Sister Kidney cancer Maternal Grandmother Prostate cancer Paternal Grandfather Cancer Father Cancer Sister Family Status - Relation Status Age at Mother Sister Maternal Grandmother Paternal Grandfather Father SisterNormalUniAdena Regional Medical CenterRefillon [id number] Elvi Moore 1980 F Date Provider Department Center 08/10/2024 170-RUKHSANA MILLER PAIN [facility] Family History Problem Relation Age of Onset Brain cancer Mother Breast cancer Sister Kidney cancer Maternal Grandmother Prostate cancer Paternal Grandfather Cancer Father Cancer Sister Family Status - Relation Status Age at Mother Sister Maternal Grandmother Paternal Grandfather Father Sister Reason for Visit and Comments: Med Refill [[id number]][facility] [id number] Pathology Report(NOTE) Path Number: [id number] -- Diagnosis -- RIGHT PAROTID GLAND, 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 COMMENT: FOR TECHNICAL COMMUNICATOR, THE SLIDES WERE REVIEWED BY OTHER PATHOLOGISTS [...] tissue surrounding the parotid gland. Processing Lab: [address] [address] Interpretation Performed at [address] [id number] SURGICAL PATHOLOGY CONSULTATION Patient Name: ELVI MOORE [facility] Rec: [id number] [facility] ANATOMIC PATHOLOGY [address] [place], [place] [id number] NoAv[facility] Bucyrus HospitalAMYLASEon 01-25-2023 Amylase [Catalytic activity/Vol]64 U/ZPkfceb32-677LfhMedina HospitalComment on above:Performed By: #### BMP, LIPA, YVETTE, LIVER #### [facility] [address] [place] [address] Dr. Idania White AUTO DIFFon [id number] #0.0 103/ulNormal0.0-0.1Medina HospitalComment on above:Performed By: #### BMP, LIPA, YVETTE, LIVER #### [facility] [address] [place] [address] Dr. Idania Valentinsophils/100 WBC (Bld)0.3 %Normal0.2-2.0[facility] Comment on above:Performed By: #### BMP, LIPA, YVETTE, LIVER #### [facility] [address] [place] [address] Dr. Idania To #0.1 103/ulNormal0.0-0.7The [facility] HospitalComment on above: Performed By: #### BMP, LIPA, YVETTE, LIVER #### [facility] [address] [place] [address] Dr. Idania Larkinosinophils/100 WBC (Bld)1.0 %Normal0.9-7.0[facility] Comment on above:Performed By: #### BMP, LIPA, YVETTE, LIVER #### [facility] [address] [place] [address] Dr. Idania Larkinrythrocyte distribution width (RBC) [Ratio]17.2 %Critically high 11.0-15.0The [facility] HospitalComment on above:Performed By: #### BMP, LIPA, YVETTE, LIVER #### [facility] [address] [place] [address] Dr. Idania RoldanHematocrit (Bld) [Volume fraction]33.9 %Critically low36.0-48.0 The [facility] HospitalComment on above:Performed By: #### BMP, LIPA, YVETTE, LIVER #### [facility] [address] [place] [address] Dr. Idania RoldanHemoglobin (Bld) [Mass/Vol]10.1 g/dLCritically low12.0-16.0The [facility] HospitalComment on above:Performed By: #### BMP, LIPA, YVETTE, LIVER #### [facility] [address] [place] [address] Dr. Idania Benson #0.01 10e3/ulNormal0.00-0.03The [facility] HospitalComment on above:Performed By: #### BMP, LIPA, YVETTE, LIVER #### [facility] [address] [place] [address] Dr. Idania Benson %0.2 %Normal0.0-0.5The [facility] on above: Performed By: #### BMP, LIPA, YVETTE, LIVER #### [facility] [address] [place] [address] Dr. Idania Castro #1.7 103/ulNormal1.2-3.8The [facility] HospitalComment on above:Performed By: #### BMP, LIPA, YVETTE, LIVER #### [facility] [address] [place] [address] Dr. Idania Shanemphocytes/100 WBC (Bld)27.9 %Qtjdak79.5-60.0The [facility] Hospitalment on above:Performed By: #### BMP, LIPA, YVETTE, LIVER #### [facility] [address] [place] [address] Dr. Idania Pratt DIFF REQNONormalThe [facility] HospitalComment on above: Performed By: #### BMP, LIPA, YVETTE, LIVER #### [facility] [address] [place] [address] Dr. Idania Christensen (RBC) [Entitic mass]20.7 pgCritically low26.7-34.0The [facility]cy HospitalComment on above:Performed By: #### BMP, LIPA, YVETTE, LIVER #### [facility] [address] [place] [address] Dr. [facility] RoldanDOCTORS HOSPITAL (RBC) [Mass/Vol]29.8 g/dLCritically low29.9-35.2The [facility] HospitalComment on above:Performed By: #### BMP, LIPA, YVETTE, LIVER #### [facility] [address] [place] [address] Dr. Idania Christensen (RBC) [Entitic vol]69.6 fLCritically low81.0-99.0The [facility] HospitalComment on above:Performed By: #### BMP, LIPA, YVETTE, LIVER #### [facility] [address] [place] [address] Dr. Iadnia Salazar #0.4 103/ulNormal0.3-0.8The [facility] HospitalComment on above:Performed By: #### BMP, LIPA, YVETTE, LIVER #### [facility] [address] [place] [address] Dr. Idania Chavezocytes/100 WBC (Bld)7.1 %Normal1.7-12.0The [facility] Comment on above:Performed By: #### BMP, LIPA, YVETTE, LIVER #### [facility] [address] [place] [address] Dr. Idania Santa #3.8 103/ulNormal1.4-6.5The [facility] HospitalComment on above:Performed By: #### BMP, LIPA, YVETTE, LIVER #### [facility] [address] [place] [address] Dr. Idania Sonutrophils/100 WBC (Bld)63.5 %Ndzozb92.0-75.0The [facility] HospitalComment on above:Performed By: #### BMP, LIPA, YVETTE, LIVER #### [facility] [address] [address] [address] Idania RoldanPlatelet mean volume (Bld) [Entitic vol]9.3 fLCritically low 9.5-13.5The [facility] HospitalComment on above:Performed By: #### BMP, LIPA, YVETTE, LIVER #### [facility] [address] [address] [address] Idania RoldanPLT294 103/flHjjrgy525-100Ero [facility] on above: Performed By: #### BMP, LIPA, YVETTE, LIVER #### [facility] [address] [place] [address] Dr. Idania RoldanRBC4.87 106/ulNormal4.20-5.40The [facility] on above:Performed By: #### BMP, LIPA, YVETTE, LIVER #### [facility] [address] [address] [address] Idania RoldanWBC6.0 103/ulNormal4.0-11.0The [facility] Hospitalment on above: Performed By: #### BMP, LIPA, YVETTE, LIVER #### [facility] [address] [place] [address] Dr. Idania RoldanCT ABD/PELVIS WO CONon [id number] ABD/PELVIS WO CONEXAMINATION: CT ABD/PELVIS WO CON, 01/25/2023 11:34 AM [...] Electronically authenticated by: VEDA BOND Date: 2023-01-25 12:20[facility] URINE PROFILEon [id number] Ql (U)SMALLAbnormal NEGATIVEMedina HospitalComment on above:Performed By: #### BMP, LIPA, YVETTE, LIVER #### [facility] [address] [address] [address] Idania RoldanClarity (U)CLEARNormalCLEARMedina HospitalComment on above: Performed By: #### BMP, LIPA, YVETTE, LIVER #### [facility] [address] [address] [address] Idania Wagner (U)DK. YELLOWNormalYELLOWMedina HospitalComment on above:Performed By: #### BMP, LIPA, YVETTE, LIVER #### [facility] [address] [address] [address] Idania Phelps micrscopic examination will be performed if indicated. NormalMedina HospitalComment on above:Performed By: #### BMP, LIPA, YVETTE, LIVER #### [facility] [address] [address] [address] Idania RoldanGlucose Ql (U)NegativeNormalNEGATIVEMedina HospitalComment on above:Performed By: #### BMP, LIPA, YVETTE, LIVER #### [facility] [address] [address] [address] Idania RoldanHemoglobin Ql (U)LARGEAbnormalNEGATIVEMedina Hospital Comment on above:Performed By: #### BMP, LIPA, YVETTE, LIVER #### [facility] [address] [address] [address] Idania Gómez Ql (U)TRACEAbnormalNEGATIVEThe [facility] HospitalComment on above:Performed By: #### BMP, LIPA, YVETTE, LIVER #### [facility] [address] [address] [address] Idania RoldanLEUKOCYTESNegativeNormalNEGATIVEMedina HospitalComment on above:Performed By: #### BMP, LIPA, YVETTE, LIVER #### [facility] [address] [address] [address] Idania Galicia Ql (U)NegativeNormalNEGATIVEThe [facility] HospitalComment on above:Performed By: #### BMP, LIPA, YVETTE, LIVER #### [facility] [address] [address] [address] Idania RoldanpH (U)5.0 [pH]Normal5-9The [facility] HospitalComment on above: Performed By: #### BMP, LIPA, YVETTE, LIVER #### [facility] [address] [address] [address] Idania RoldanSPEC GRAVITY>=1.368Ztuhizdd4.005-<=1.025The [facility] Comment on above:Performed By: #### BMP, LIPA, YVETTE, LIVER #### [facility] [address] [address] [address] Idania Bee PROTEINTRACENormalNEGATIVE/ TRACEThe [facility] HospitalComment on above:Performed By: #### BMP, LIPA, YVETTE, LIVER #### [facility] [address] [address] [address] Idania Ventura MICRO INDINDICATEDNormalThMercy Health Fairfield HospitalComment on above: Performed By: #### BMP, LIPA, YVETTE, LIVER #### [facility] [address] [address] [address] Idania RoldanUrobilinogen Qn (U)0.2 {Bryan'U}/dLNormal0.2 - 1.0The [facility] on above:Performed By: #### BMP, LIPA, YVETTE, LIVER #### [facility] [address] [place] [address] Dr. Idania EpsteinASEon [id number] [Catalytic activity/Vol]226.0 U/LNormal 73.0-393.0The [facility] on above:Performed By: #### BMP, LIPA, YVETTE, LIVER #### [facility] [address] [place] [address] Dr. Idania RoldanLISIDNEY PROFILEon [id number] [Mass/Vol]4.1 g/dLNormal3.4-5.0 The [facility] on above:Performed By: #### BMP, LIPA, YVETTE, LIVER #### [facility] [address] [place] [address] Dr. Idania RoldanAlbumin/Globulin [Mass ratio]0.9 {ratio}NormalThe [facility] on above:Performed By: #### BMP, LIPA, YVETTE, LIVER #### [facility] [address] [place] [address] Dr. Idania Desai [Catalytic activity/Vol]110 U/NDgudtn94-900Nyd [facility] on above:Performed By: #### BMP, LIPA, YVETTE, LIVER #### [facility] [address] [place] [address] Dr. Idania Arellano [Catalytic activity/Vol]20 U/WHngeam13-88Ojq [facility] on above:Performed By: #### BMP, LIPA, YVETTE, LIVER #### [facility] [address] [place] [address] Dr. Idania Levin [Catalytic activity/Vol]11 U/LCritically ima34-58Hgh [facility] on above:Performed By: #### BMP, LIPA, YVETTE, LIVER #### [facility] [address] [place] [address] Dr. Idania Berkowitz, CONJUGATED0.1 mg/dLNormal0.0-0.2[facility] Comment on above:Performed By: #### BMP, LIPA, YVETTE, LIVER #### [facility] [address] [place] [address] Dr. Idania RoldanBilirubin [Mass/Vol]0.3 mg/dLNormal0.2-1.0[facility] Comment on above:Performed By: #### BMP, LIPA, YVETTE, LIVER #### [facility] [address] [place] [address] Dr. Idania RoldanGlobulin (S) [Mass/Vol]4.4 g/dLNormalThe [facility] HospitalComment on above:Performed By: #### BMP, LIPA, YVETTE, LIVER #### [facility] [address] [place] [address] Dr. Idania RoldanProtein [Mass/Vol]8.5 g/dLCritically high6.4-8.2The [facility] HospitalComment on above:Performed By: #### BMP, LIPA, YVETTE, LIVER #### [facility] [address] [place] [address] Dr. Idania RoldanPROF CHEM 8 (BAS METB)on [id number] gap [Moles/Vol]13.5 mmol/LNormalMedina HospitalComment on above:Performed By: #### BMP, LIPA, YVETTE, LIVER #### [facility] [address] [place] [address] Dr. Idania RoldanCalcium [Mass/Vol]9.3 mg/dLNormal8.5-10.1The [facility] Comment on above:Performed By: #### BMP, LIPA, YVETTE, LIVER #### [facility] [address] [place] [address] Dr. Idania RoldanChloride [Moles/Vol]105 mmol/SBxprzj62-606Bnc [facility] Comment on above:Performed By: #### BMP, LIPA, YVETTE, LIVER #### [facility] [address] [place] [address] Dr. Idania RoldanCO2 [Moles/Vol]27.2 mmol/ATrotng54.0-32.0[facility] Comment on above:Performed By: #### BMP, LIPA, YVETTE, LIVER #### [facility] [address] [place] [address] Dr. Idania RoldanCreatinine [Mass/Vol]0.74 mg/dLNormal0.55-1.02The [facility] HospitalComment on above:Performed By: #### BMP, LIPA, YVETTE, LIVER #### [facility] [address] [place] [address] Dr. Idania LarkinGFR-AF SLOVENIAN>60Normal>=60The [facility] HospitalComment on above:Performed By: #### BMP, LIPA, YVETTE, LIVER #### [facility] [address] [place] [address] Dr. Idania LarkinGFR-NON AF SLOVENIAN>60Normal>=60The [facility] HospitalComment on above:Performed By: #### BMP, LIPA, YVETTE, LIVER #### [facility] [address] [place] [address] Dr. Idania RoldanGlucose [Mass/Vol]97 mg/cCIumcjj63-029ClnMedina Hospital Comment on above:Performed By: #### BMP, LIPA, YVETTE, LIVER #### [facility] [address] [place] [address] Dr. Idania RoldanPotassium [Moles/Vol]3.7 mmol/LNormal3.5-5.1[facility] Comment on above:Performed By: #### BMP, LIPA, YVETTE, LIVER #### [facility] [address] [place] [address] Dr. Idania RoldanSodium [Moles/Vol]142 mmol/TJytcym420-333PueMedina Hospital Comment on above:Performed By: #### BMP, LIPA, YVETTE, LIVER #### [facility] [address] [place] [address] Dr. Idania RoldanUrea nitrogen [Mass/Vol]13.0 mg/dLNormal7.0-18.0The [facility] HospitalComment on above:Performed By: #### BMP, LIPA, YVETTE, LIVER #### [facility] [address] [address] [address] Idania RoldanUrea nitrogen/Creatinine [Mass ratio]17.6 mg/mgNoWexner Medical Center on above:Performed By: #### BMP, LIPA, YVETTE, LIVER #### [facility] [address] [address] [address] Idania Mcintosh MICROSCOPIC ONLYon [id number] SEENNormalNONE SEENMedina HospitalComuniversity of [facility] on above:Performed By: #### BMP, LIPA, YVETTE, LIVER #### [facility] [address] [address] [address] Idania Kinney identified Cx Nom (U)NOT INDICATEDNoSouthview Medical CenterComuniversity of [facility] on above:Performed By: #### BMP, LIPA, YVETTE, LIVER #### [facility] [address] [place] [address] Dr. Idania Marquez SEENNormalNONE SEENSelect [facility]ty [facility] [place] on above:Performed By: #### BMP, LIPA, YVETTE, LIVER #### [facility] [address] [address] [address] Idania Barajas LM Nom (Urine sed)NONE SEENNormalNONE SEENSelect Medical Specialty [facility] [place] on above:Performed By: #### BMP, LIPA, YVETTE, LIVER #### [facility] [address] [address] [address] Emerson ChangEpithelial cells LM Ql (Urine sed)FEWAbnormalNONE SEEN /RAREThe [facility] HospitalComuniversity [facility] on above:Performed By: #### BMP, LIPA, YVETTE, LIVER #### [facility] [address] [place] [address] Dr. Idania JonesE SEENrmalNONE SEENSelect [facility] Specialty [facility] [place] on above:Performed By: #### BMP, LIPA, YVETTE, LIVER #### [facility] [address] [address] [address] Idania Stanton (U) [#/Vol]/uLAbnormal0-2The [facility] HospitalComment on above:Performed By: #### BMP, LIPA, YVETTE, LIVER #### [facility] [address] [place] [address] Dr. Idania EatonNONKassidy SEENNormalNONE SEENThe [facility] HospitalComment on above: Performed By: #### BMP, LIPA, YVETTE, LIVER #### [facility] [address] [place] [address] Dr. Idania RoldanXR KUB 1 VIEWon [id number] KUB 1 VIEWEXAM: XR KUB 1 VIEW, 01/21/2023 HISTORY: Kidney [...] Electronically authenticated by: DENILSON AUSTIN Date: 2023-01-24 19:51NoSouthview Medical CenterAMYLASEon [id number] [Catalytic activity/Vol]64 U/L Gbgjqs56-619Gsg [facility] HospitalComment on above:Performed By: #### PT, PTT #### [facility] [address] [place] [address] Dr. Idania RoldanCBC AUTO DIFFon [id number] #0.0 103/ulNormal0.0-0.1The [facility] HospitalComment on above:Performed By: #### BMP, LIPA, YVETTE, LIVER #### [facility] [address] [place], [place] [address] Dr. Idania RoldanBasophils/100 WBC (Bld)0.2 %Normal0.2-2.0[facility] Comment on above:Performed By: #### BMP, LIPA, YVETTE, LIVER #### [facility] [address] [address] [address] Idania To #0.1 103/ulNormal0.0-0.7The [facility] HospitalComment on above: Performed By: #### BMP, LIPA, YVETTE, LIVER #### [facility] [address] [place] [address] Dr. Idania Larkinosinophils/100 WBC (Bld)0.9 %Normal0.9-7.0The [facility] Comment on above:Performed By: #### BMP, LIPA, YVETTE, LIVER #### [facility] [address] [place] [address] Dr. Idania Larkinrythrocyte distribution width (RBC) [Ratio]17.2 %Critically high 11.0-15.0The [facility] HospitalComment on above:Performed By: #### BMP, LIPA, YVETTE, LIVER #### [facility] [address] [place] [address] Dr. Idania RoldanHematocrit (Bld) [Volume fraction]32.5 %Critically low36.0-48.0 The [facility] HospitalComment on above:Performed By: #### BMP, LIPA, YVETTE, LIVER #### [facility] [address] [place] [address] Dr. Idania RoldanHemoglobin (Bld) [Mass/Vol]9.5 g/dLCritically low12.0-16.0The [facility] HospitalComment on above:Performed By: #### BMP, LIPA, YVETTE, LIVER #### [facility] [address] [place] [address] Dr. Idania Benson #0.01 10e3/ulNormal0.00-0.03The [facility] HospitalComment on above:Performed By: #### BMP, LIPA, YVETTE, LIVER #### [facility] [address] [place] [address] Dr. Idania RoldanIG %0.2 %Normal0.0-0.5The [facility] HospitalComment on above: Performed By: #### BMP, LIPA, YVETTE, LIVER #### [facility] [address] [place] [address] Dr. Idania Castro #2.0 103/ulNormal1.2-3.8The [facility] HospitalComment on above:Performed By: #### BMP, LIPA, YVETTE, LIVER #### [facility] [address] [place] [address] Dr. Idania Dominguezcytes/100 WBC (Bld)34.7 %Hqnyjz17.5-60.0The [facility]cy HospitalComment on above:Performed By: #### BMP, LIPA, YVETTE, LIVER #### [facility] [address] [place] [address] Dr. Idania Pratt DIFF REQNONormalThe [facility] HospitalComment on above: Performed By: #### BMP, LIPA, YVETTE, LIVER #### [facility] [address] [place] [address] Dr. Idania Christensen (RBC) [Entitic mass]20.5 pgCritically low26.7-34.0The [facility] HospitalComment on above:Performed By: #### BMP, LIPA, YVETTE, LIVER #### [facility] [address] [place] [address] Dr. Idania Christensen (RBC) [Mass/Vol]29.2 g/dLCritically low29.9-35.2The [facility] HospitalComment on above:Performed By: #### BMP, LIPA, YVETTE, LIVER #### [facility] [address] [place] [address] Dr. Idania Christensen (RBC) [Entitic vol]70.2 fLCritically low81.0-99.0The [facility] HospitalComment on above:Performed By: #### BMP, LIPA, YVETTE, LIVER #### [facility] [address] [place] [address] Dr. Idania Salazar #0.5 103/ulNormal0.3-0.8The [facility] HospitalComment on above:Performed By: #### BMP, LIPA, YVETTE, LIVER #### [facility] [address] [place] [address] Dr. Yilan ChangMonocytes/100 WBC (Bld)8.7 %Normal1.7-12.0The [facility] Comment on above:Performed By: #### BMP, LIPA, YVETTE, LIVER #### [facility] [address] [place] [address] Dr. Idania Santa #3.2 103/ulNormal1.4-6.5The [facility] HospitalComment on above:Performed By: #### BMP, LIPA, YVETTE, LIVER #### [facility] [address] [place] [address] Dr. Idania Sonutrophils/100 WBC (Bld)55.3 %Vfnxuo27.0-75.0The [facility] HospitalComment on above:Performed By: #### BMP, LIPA, YVETTE, LIVER #### [facility] [address] [place] [address] Dr. Idania RoldanPlatelet mean volume (Bld) [Entitic vol]9.7 fLNormal9.5-13.5The [facility] HospitalComment on above:Performed By: #### BMP, LIPA, YVETTE, LIVER #### [facility] [address] [place] [address] Dr. Idania RoldanPLT310 103/rgVxmejo463-898Ppp [facility] HospitalComment on above: Performed By: #### BMP, LIPA, YVETTE, LIVER #### [facility] [address] [place] [address] Dr. Idania RoldanRBC4.63 106/ulNormal4.20-5.40The [facility] Hospitalment on above:Performed By: #### BMP, LIPA, YVETTE, LIVER #### [facility] [address] [place] [address] Dr. Idania RoldanWBC5.8 103/ulNormal4.0-11.0The [facility] Hospitalment on above: Performed By: #### BMP, LIPA, YVETTE, LIVER #### [facility] [address] [place] [address] Dr. Idania RoldanCUJONATHAN URINEon [id number] URINECulture Observations: MODERATE GROWTH OF MIXED GENITAL ALE. NO POTENTIAL PATHOGENS SEEN.NormalThe [facility] HospitalComment on above:Performed By: #### PT, PTT #### [facility] [address] [place] [address] Dr. Idania RoldanLIPASEon [id number] [Catalytic activity/Vol]251.0 U/LNormal 73.0-393.0The [facility] HospitalComment on above:Performed By: #### PT, PTT #### [facility] [address] [place] [address] Dr. Idania RoldanPROF 14(COMP METB)on 36-05-2107Hsbrxvz [Mass/Vol]3.8 g/dLNormal 3.4-5.0The [facility] HospitalComment on above:Performed By: #### PT, PTT #### [facility] [address] [place] [address] Dr. Idania RoldanAlbumin/Globulin [Mass ratio]1.0 {ratio}NormalThe [facility] HospitalComment on above:Performed By: #### PT, PTT #### [facility] [address] [place] [address] Dr. Idania Desai [Catalytic activity/Vol]107 U/DZczqod01-043Ttb [facility] HospitalComment on above:Performed By: #### PT, PTT #### [facility] [address] [place] [address] Dr. Idania Arellano [Catalytic activity/Vol]17 U/BBavpuy57-38Pka [facility] Hospitalment on above:Performed By: #### PT, PTT #### [facility] [address] [place] [address] Dr. Idania Juan gap [Moles/Vol]13.3 mmol/LNormalThe [facility] Comment on above:Performed By: #### PT, PTT #### [facility] [facility] [address] [place] [address] Dr. Idania RoldanAST [Catalytic activity/Vol]9 U/LCritically vsp96-14Edn [facility] HospitalComment on above:Performed By: #### PT, PTT #### [facility] [address] [address] [address] Idania RoldanBilirubin [Mass/Vol]0.3 mg/dLNormal0.2-1.0The [facility] Comment on above:Performed By: #### PT, PTT #### [facility] [address] [address] [address] Idania RoldanCalcium [Mass/Vol]9.0 mg/dLNormal8.5-10.1The [facility] Comment on above:Performed By: #### PT, PTT #### [facility] [address] [place] [address] Dr. Idania RoldanChloride [Moles/Vol]103 mmol/VNnjwkk11-679Cdz [facility] Comment on above:Performed By: #### PT, PTT #### [facility] [address] [place] [address] Dr. Idania RoldanCO2 [Moles/Vol]28.2 mmol/TDzgrqo41.0-32.0The [facility] Comment on above:Performed By: #### PT, PTT #### [facility] [address] [place] [address] Dr. Idania RoldanCreatinine [Mass/Vol]0.81 mg/dLNormal0.55-1.02The [facility] HospitalComment on above:Performed By: #### PT, PTT #### [facility] [address] [address] [address] Idania LarkinGFR-AF SLOVENIAN>60Normal>=60The [facility] HospitalComment on above:Performed By: #### PT, PTT #### [facility] [address] [place] [address] Dr. Idania LarkinGFR-NON AF SLOVENIAN>60Normal>=60The [facility] HospitalComment on above:Performed By: #### PT, PTT #### [facility] [address] [place] [address] Dr. Idania RoldnaGlobulin (S) [Mass/Vol]3.9 g/dLNormalThe [facility] HospitalComment on above:Performed By: #### PT, PTT #### [facility] [address] [address] [address] Idania RoldanGlucose [Mass/Vol]93 mg/bQVbyeww15-509Aog [facility] Comment on above:Performed By: #### PT, PTT #### [facility] [address] [address] [address] Idania RoldanPotassium [Moles/Vol]3.5 mmol/LNormal3.5-5.1The [facility] Comment on above:Performed By: #### PT, PTT #### [facility] [address] [address] [address] Idania RoldanProtein [Mass/Vol]7.7 g/dLNormal6.4-8.2The [facility] Comment on above:Performed By: #### PT, PTT #### [facility] [address] [address] [address] Idania RoldanSodium [Moles/Vol]141 mmol/GGcxquu614-080Jga [facility] Comment on above:Performed By: #### PT, PTT #### [facility] [address] [address] [address] Idania RoldanUrea nitrogen [Mass/Vol]11.0 mg/dLNormal7.0-18.0The [facility] HospitalComment on above:Performed By: #### PT, PTT #### [facility] [address] [address] [address] Idania Licona nitrogen/Creatinine [Mass ratio]13.6 mg/mgNormalThe [facility] HospitalComment on above:Performed By: #### PT, PTT #### [facility] [address] [address] [address] Idania RoldanUA RANDOM W/MICROSCOPICon [id number]W SEENMedina HospitalComment on above:Performed By: #### BMP, LIPA, YVETTE, LIVER #### [facility] [address] [address] [address] Idania RoldanBilirubin Ql (U)SMALLAbnormalNEGATIVEThe [facility] HospitalComment on above:Performed By: #### BMP, LIPA, YVETTE, LIVER #### [facility] [address] [address] [address] Idania RoldanCASTNONE SEENNormalNONE SEENMedina HospitalComuniversity of [facility] on above:Performed By: #### BMP, LIPA, YVETTE, LIVER #### [facility] [address] [address] [address] Idania Sanders (U)CLEARNormalCLEARMedina HospitalComment on above: Performed By: #### BMP, LIPA, YVETTE, LIVER #### [facility] [address] [address] [address] Idania Wagner (U)DK. YELLOWNormalYELLOWMedina HospitalComment on above:Performed By: #### BMP, LIPA, YVETTE, LIVER #### [facility] [address] [place] [address] Dr. Idania RoldanCrystals LM Nom (Urine sed)NONE SEENNormalNONE SEENMedina HospitalComment on above:Performed By: #### BMP, LIPA, YVETTE, LIVER #### [facility] [address] [address] [address] Emerson ChangEpithelial cells LM Ql (Urine sed)FEWAbnormalNONE SEEN /RAREThe [facility] HospitalComun[facility] on above:Performed By: #### BMP, LIPA, YVETTE, LIVER #### [facility] [address] [address] [address] Idania Villagranose Ql (U)NegativeNormalNEGATIVEMedina HospitalComment on above:Performed By: #### BMP, LIPA, YVETTE, LIVER #### [facility] [address] [address] [address] Idania RoldanHemoglobin Ql (U)LARGEAbnormalNEGATIVEGrant Hospital on above:Performed By: #### BMP, LIPA, YVETTE, LIVER #### [facility] [address] [address] [address] Idania Timmonsones Ql (U)TRACEAbnormalNEGATIVEMedina HospitalComment on above:Performed By: #### BMP, LIPA, YVETTE, LIVER #### [facility] [address] [place] [address] Dr. Idania RoldanLEUKOCYTESNegativeNormalNEGATIVEThe [facility] HospitalComment on above:Performed By: #### BMP, LIPA, YVETTE, LIVER #### [facility] [address] [place] [address] Dr. Idania BrooksCOUSMODERATEAbnormalNONE SEENThe [facility] HospitalComment on above:Performed By: #### BMP, LIPA, YVETTE, LIVER #### [facility] [address] [place] [address] Dr. Idania Galicia Ql (U)NegativeNormalNEGATIVEMedina HospitalComment on above:Performed By: #### BMP, LIPA, YVETTE, LIVER #### [facility] [address] [place] [address] Dr. Idania RoldanpH (U)5.0 [pH]Normal5-9Medina HospitalComment on above: Performed By: #### BMP, LIPA, YVETTE, LIVER #### [facility] [address] [place] [address] Dr. Idania Stanton (U) [#/Vol]/uLAbnormal0-2The [facility] HospitalComment on above:Performed By: #### BMP, LIPA, YVETTE, LIVER #### [facility] [address] [place] [address] Dr. Idania RoldanSPEC GRAVITY>=1.666Rcsnxpps9.005-<=1.025The [facility] Comment on above:Performed By: #### BMP, LIPA, YVETTE, LIVER #### [facility] [address] [place] [address] Dr. Idania Bee PROTEINTRACENormalNEGATIVE/ TRACEMedina HospitalComment on above:Performed By: #### BMP, LIPA, YVETTE, LIVER #### [facility] [address] [place] [address] Dr. Idania Trejo Qn (U)0.2 {Bryan'U}/dLNormal0.2 - 1.0The [facility] on above:Performed By: #### MANOLO LIPChristine, YVETTE, LIVER #### [facility] [address] [address] [address] Idania RoldanWBC0-2AbnormalNONE SEENThe [facility] on above: Performed By: #### MANOLO LIPChristine, YVETTE, LIVER #### [facility] [address] [address] [address] Idania RoldanCovid-19 PCR (CVDPA[facility])on [id number]-CoV-2 (COVID-19) RNA MAMIE+probe Ql (Unsp spec)DetectedCritically abnormalNOT DETECTEDThe [facility] on above:Result Comment: This test is not yet approved or cleared by the [place] FDA. When there are no FDA-approved or cleared tests available, and other criteria are met, FDA can make tests available under an emergency access mechanism called an Emergency Use Authorization (EUA). The EUA for this test is supported by the [place] of Health and Human Service's (HHS's) declaration [...] no longer be used). Performed By: #### CVDTBH #### [facility] [address] [place] [address] Dr. Idanai RoldanINFLCARMELITANZA A AND B AGon [id number] BELOWWadsworth-Rittman Hospital on above:Result Comment: Negative for Flu A protein angiten. Infection due to Flu A cannot be ruled out. FluA angiten in the sample may be below the detection limit of the test.Performed By: #### PT, PTT #### [facility] [address] [address] [address] Idania TanNEGHSEE BELOWNoSouthview Medical CenterComment on above: Result Comment: Negative for Flu B protein antigen. Infection due to Flu B cannot be ruled out. FluB antigen in the sample may be below the detection limit of the test.Performed By: #### PT, PTT #### [facility] [address] [place] [address] Dr. Idania King AGNegativeNormalNEGATIVE SEE COMMENTThe [facility] HospitalComment on above:Performed By: #### PT, PTT #### [facility] [address] [place] [address] Dr. Idania Tavarez AGNegativeNormalNEGATIVE SEE COMMENTThe [facility] HospitalComment on above:Performed By: #### PT, PTT #### [facility] [address] [place] [address] Dr. Idania RoldanINTERNAL CONTROLSWithin Normal LimitsNormalWithin Normal Limits The [facility] HospitalComment on above:Performed By: #### PT, PTT #### [facility] [address] [place] [address] Dr. Idania RoldanAMYLASEon [id number] [Catalytic activity/Vol]62 U/LNormal 25-115The [facility] HospitalComuniversity of [facility] on above:Performed By: #### BMP, LIPA, YVETTE, LIVER #### [facility] [address] [place] [address] Dr. Idania White AUTO DIFFon [id number] #0.0 103/ulNormal0.0-0.1The [facility] HospitalComment on above:Performed By: #### CBC #### [facility] [address] [place] [address] Dr. Idania Valentinsophils/100 WBC (Bld)0.3 %Normal0.2-2.0[facility] Comment on above:Performed By: #### CBC #### [facility] [address] [place] [address] Dr. Idania To #0.1 103/ulNormal0.0-0.7The [facility] HospitalComment on above: Performed By: #### CBC #### [facility] [address] [place] [address] Dr. Idania Larkinosinophils/100 WBC (Bld)1.2 %Normal0.9-7.0The [facility] on above:Performed By: #### CBC #### [facility] [address] [place] [address] Dr. Idania Larkinrythrocyte distribution width (RBC) [Ratio]14.8 %Sjkwgb39.0-15.0 Medina HospitalComment on above:Performed By: #### CBC #### [facility] [address] [place] [address] Dr. Idania RoldanHematocrit (Bld) [Volume fraction]31.8 %Critically low36.0-48.0 Medina HospitalComment on above:Performed By: #### CBC #### [facility] [address] [place] [address] Dr. Idania RoldanHemoglobin (Bld) [Mass/Vol]9.6 g/dLCritically low12.0-16.0The [facility] HospitalComment on above:Performed By: #### CBC #### [facility] [address] [place] [address] Dr. Idania Benson #0.01 10e3/ulNormal0.00-0.03The [facility] HospitalComment on above:Performed By: #### CBC #### [facility] [address] [place] [address] Dr. Idania Benson %0.1 %Normal0.0-0.5The [facility] HospitalComment on above: Performed By: #### CBC #### [facility] [address] [place] [address] Dr. Idania Castro #3.3 103/ulNormal1.2-3.8The [facility] HospitalComment on above:Performed By: #### CBC #### [facility] [address] [place] [address] Dr. Yilan ChangLymphocytes/100 WBC (Bld)45.4 %Nuhiqz22.5-60.0The [facility] HospitalComment on above:Performed By: #### CBC #### [facility] [address] [place] [address] Dr. Idania Pratt DIFF REQNONormalThe [facility] HospitalComment on above: Performed By: #### CBC #### [facility] [address] [place] [address] Dr. Idania Christensen (RBC) [Entitic mass]22.7 pgCritically low26.7-34.0The [facility] HospitalComment on above:Performed By: #### CBC #### [facility] [address] [place] [address] Dr. Idania Christensen (RBC) [Mass/Vol]30.2 g/rWVwjefb69.9-35.2The [facility] HospitalComment on above:Performed By: #### CBC #### [facility] [address] [place] [address] Dr. Idania Christensen (RBC) [Entitic vol]75.4 fLCritically low81.0-99.0The [facility] HospitalComment on above:Performed By: #### CBC #### [facility] [address] [place] [address] Dr. Idania Salazar #0.5 103/ulNormal0.3-0.8The [facility] HospitalComment on above:Performed By: #### CBC #### [facility] [address] [place] [address] Dr. Idania Chavezocytes/100 WBC (Bld)6.2 %Normal1.7-12.0The [facility] Comment on above:Performed By: #### CBC #### [facility] [address] [place] [address] Dr. Idania Santa #3.4 103/ulNormal1.4-6.5The [facility] HospitalComment on above:Performed By: #### CBC #### [facility] [address] [place] [address] Dr. Yilan ChangNeutrophils/100 WBC (Bld)46.8 %Rqnsiz18.0-75.0The [facility] HospitalComment on above:Performed By: #### CBC #### [facility] [address] [place] [address] Dr. Idania RoldanPlatelet mean volume (Bld) [Entitic vol]8.5 fLCritically low 9.5-13.5The [facility] HospitalComment on above:Performed By: #### CBC #### [facility] [address] [place] [address] Dr. Idania RoldanPLT273 103/eyBxypum593-934Ruh [facility] HospitalComment on above: Performed By: #### CBC #### [facility] [address] [place] [address] Dr. Idania RoldanRBC4.22 106/ulNormal4.20-5.40The [facility] HospitalComment on above:Performed By: #### CBC #### [facility] [address] [place] [address] Dr. Idania RoldanWBC7.2 103/ulNormal4.0-11.0The [facility] HospitalComment on above: Performed By: #### CBC #### [facility] [address] [place] [address] Dr. Idania RoldanCULTTANO URINEon [id number] URINECulture Observations: MODERATE GROWTH OF MIXED GENITAL ALE. NO POTENTIAL PATHOGENS SEEN.NormalThe [facility] HospitalComment on above:Performed By: #### PT, PTT #### [facility] [address] [place] [address] Dr. Idania RoldanLIPASEon 13-13-7930Aghhbl [Catalytic activity/Vol]256.0 U/LNormal 73.0-393.0The [facility] HospitalComment on above:Performed By: #### BMP, LIPA, YVETTE, LIVER #### [facility] [address] [place] [address] Dr. Idania RoldanPROF 14(COMP METB)on 21-68-2663Iirzwyz [Mass/Vol]4.1 g/dLNormal 3.4-5.0The [facility] HospitalComment on above:Performed By: #### BMP, LIPA, YVETTE, LIVER #### [facility] [address] [place] [address] Dr. Idania RoldanAlbumin/Globulin [Mass ratio]1.0 {ratio}NormalThe [facility] HospitalComment on above:Performed By: #### BMP, LIPA, YVETTE, LIVER #### [facility] [address] [place] [address] Dr. Idania SalasP [Catalytic activity/Vol]93 U/KOabrkt50-001Nsu [facility] HospitalComment on above:Performed By: #### BMP, LIPA, YVETTE, LIVER #### [facility] [address] [place] [address] Dr. Idania Arellano [Catalytic activity/Vol]13 U/LCritically uvw40-74Idc [facility] HospitalComment on above:Performed By: #### BMP, LIPA, YVETTE, LIVER #### [facility] [address] [place] [address] Dr. Idania Juan gap [Moles/Vol]9.8 mmol/LNormalThe [facility] HospitalComment on above:Performed By: #### BMP, LIPA, YVETTE, LIVER #### [facility] [address] [place] [address] Dr. Idania Levin [Catalytic activity/Vol]12 U/LCritically zub63-84Qve [facility] HospitalComment on above:Performed By: #### BMP, LIPA, YVETTE, LIVER #### [facility] [address] [place] [address] Dr. Idania RoldanBilirubin [Mass/Vol]0.2 mg/dLNormal0.2-1.0The [facility] Comment on above:Performed By: #### BMP, LIPA, YVETTE, LIVER #### [facility] [address] [place] [address] Dr. Idania RoldanCalcium [Mass/Vol]9.2 mg/dLNormal8.5-10.1The [facility] Comment on above:Performed By: #### BMP, LIPA, YVETTE, LIVER #### [facility] [address] [place] [address] Dr. Idania RoldanChloride [Moles/Vol]101 mmol/KWtbkxt33-502Dij [facility] Comment on above:Performed By: #### BMP, LIPA, YVETTE, LIVER #### [facility] [address] [place] [address] Dr. Idania RoldanCO2 [Moles/Vol]31.8 mmol/YNbdpqs80.0-32.0The [facility] Comment on above:Performed By: #### BMP, LIPA, YVETTE, LIVER #### [facility] [address] [place] [address] Dr. Idania RoldanCreatinine [Mass/Vol]0.71 mg/dLNormal0.55-1.02[facility] HospitalComment on above:Performed By: #### BMP, LIPA, YVETTE, LIVER #### [facility] [address] [place] [address] Dr. Emerson ChangEGFR-AF SLOVENIAN>60Normal>=60The [facility] HospitalComment on above:Performed By: #### BMP, LIPA, YVETTE, LIVER #### [facility] [address] [place] [address] Dr. Idania LarkinGFR-NON AF SLOVENIAN>60Normal>=60[facility] HospitalComment on above:Performed By: #### BMP, LIPA, YVETTE, LIVER #### [facility] [address] [place] [address] Dr. Idania RoldanGlobulin (S) [Mass/Vol]4.0 g/dLNormalThe [facility] HospitalComment on above:Performed By: #### BMP, LIPA, YVETTE, LIVER #### [facility] [address] [place] [address] Dr. Idania RoldanGlucose [Mass/Vol]92 mg/gIJcyule93-830YbxMed[facility] Hospital Comment on above:Performed By: #### BMP, LIPA, YVETTE, LIVER #### [facility] [address] [place] [address] Dr. Idania RoldanPotassium [Moles/Vol]3.6 mmol/LNormal3.5-5.1[facility] Comment on above:Performed By: #### BMP, LIPA, YVETTE, LIVER #### [facility] [address] [address] [address] Idania RoldanProtein [Mass/Vol]8.1 g/dLNormal6.4-8.2The [facility] Comment on above:Performed By: #### BMP, LIPA, YVETTE, LIVER #### [facility] [address] [place] [address] Dr. Idania RoldanSodium [Moles/Vol]139 mmol/BByocql891-202Ldf [facility] Comment on above:Performed By: #### BMP, LIPA, YVETTE, LIVER #### [facility] [address] [place] [address] Dr. Idania RoldanUrea nitrogen [Mass/Vol]15.0 mg/dLNormal7.0-18.0[facility] HospitalComment on above:Performed By: #### BMP, LIPA, YVETTE, LIVER #### [facility] [address] [place] [address] Dr. Idania RoldanUrea nitrogen/Creatinine [Mass ratio]21.1 mg/mgNoalThe [facility] HospitalComment on above:Performed By: #### BMP, LIPA, YVETTE, LIVER #### [facility] [address] [place] [address] Dr. Idania Bee RANDOM W/MICROSCOPICon [id number]U SEENMedina HospitalComment on above:Performed By: #### BMP, LIPA, YVETTE, LIVER #### [facility] [address] [place] [address] Dr. Idania RoldanBilirubin Ql (U)NegativeNormalNEGATIVEThe [facility] Comment on above:Performed By: #### BMP, LIPA, YVETTE, LIVER #### [facility] [address] [place] [address] Dr. Idania RoldanCASTWAI SEENNormalNONE SEENMedina HospitalComment on above:Performed By: #### BMP, LIPA, YVETTE, LIVER #### [facility] [address] [address] [address] Idania Sanders (U)CLEARNormalCLEARMedina HospitalComment on above: Performed By: #### BMP, LIPA, YVETTE, LIVER #### [facility] [address] [address] [address] Idania Wagner (U)YELLOWNormalYELLOWMedina HospitalComment on above: Performed By: #### BMP, LIPA, YVETTE, LIVER #### [facility] [address] [address] [address] Idania RoldanCrystals LM Nom (Urine sed)NONE SEENNormalNONE SEENMedina HospitalComment on above:Performed By: #### BMP, LIPA, YVETTE, LIVER #### [facility] [address] [place] [address] Dr. Emerson ChangEpithelial cells LM Ql (Urine sed)FEWAbnormalNONE SEEN /RAREMedina HospitalComuniversity of [facility] on above:Performed By: #### BMP, LIPA, YVETTE, LIVER #### [facility] [address] [address] [address] Idania RoldanGlucose Ql (U)NegativeNormalNEGATIVEKettering Health Main Campusment on above:Performed By: #### BMP, LIPA, YVETTE, LIVER #### [facility] [address] [address] [address] Idania RoldanHemoglobin Ql (U)NegativeNormalNEGATIVEGrant Hospital on above:Performed By: #### BMP, LIPA, YVETTE, LIVER #### [facility] [address] [address] [address] Idania RoldanKetones Ql (U)NegativeNormalNEGATIVEMedina HospitalComment on above:Performed By: #### BMP, LIPA, YVETTE, LIVER #### [facility] [address] [address] [address] Idania RoldanLEUKOCYTESSMALLAbnormalNEGATIVEMedina HospitalComment on above:Performed By: #### BMP, LIPA, YVETTE, LIVER #### [facility] [address] [address] [address] Idania BrooksCOUSTRACEAbnormalNONE SEENThe [facility] HospitalComment on above:Performed By: #### BMP, LIPA, YVETTE, LIVER #### [facility] [address] [address] [address] Idania Galicia Ql (U)NegativeNormalNEGATIVEThe [facility] HospitalComment on above:Performed By: #### BMP, LIPA, YVETTE, LIVER #### [facility] [address] [address] [address] Idania Quinn (U)7.0 [pH]Normal5-9The [facility] HospitalComment on above: Performed By: #### BMP, LIPA, YVETTE, LIVER #### [facility] [address] [address] [address] Idania Cerrato SEENAbnormal0-2The [facility] Hospitalment on above: Performed By: #### BMP, LIPA, YVETTE, LIVER #### [facility] [address] [address] [address] Idania RoldanSPEC GRAVITY1.051Autqkd1.005-<=1.025The [facility] Hospitalment on above:Performed By: #### BMP, LIPA, YVETTE, LIVER #### [facility] [address] [address] [address] Idania Bee PROTEINNegativeNormalNEGATIVE/ TRACEThe [facility] Comment on above:Performed By: #### BMP, LIPA, YVETTE, LIVER #### [facility] [address] [address] [address] Idania Trejo Qn (U)0.2 {Bryan'U}/dLNormal0.2 - 1.0The [facility] on above:Performed By: #### BMP, LIPA, YVETTE, LIVER #### [facility] [address] [address] [address] Idania RoldanWBC5-10AbnormalNONE SEENMedina HospitalComuniversity of [facility] on above: Performed By: #### JOSE ALBERTO FRENCH AMY LIVER #### [facility] [address] [address] [address] Idania RoldanCovid-19 PCR (CVDPA[facility])on 30-51-3914COMC-CoV-2 (COVID-19) RNA MAMIE+probe Ql (Unsp spec)Not detectedNormalNOT DETECTEDMedina Hospital Comment on above:Result Comment: This test is not yet approved or cleared by the [place] FDA. When there are no FDA-approved or cleared tests available, and other criteria are met, FDA can make tests available under an emergency access mechanism called an Emergency Use Authorization (EUA). The EUA for this test is supported by the [place] of Health and Human Service's (HHS's) declaration that circumstances exist to justify the emergency use of in vitro diagnostics for the detection and/or diagnosis of the virus that causes COVID- 19. This EUA will remain in effect (meaning [...] of clinical signs and symptoms consistent with SARS-CoV-2.Performed By: #### CVDTB #### [facility] [address] [place] [address] Dr. Idania RoldanINFLUENZA A AND B AGon [id number] Health Tiffin HospitalComuniversity of [facility] on above:Result Comment: Negative for Flu A protein angiten. Infection due to Flu A cannot be ruled out. FluA angiten in the sample may be below the detection limit of the test.Performed By: #### JOSE ALBERTO FRENCH AMY LIVER #### [facility] [address] [place] [id number] Idania RoldanINFLUBNEGHSINDIGO [facility] on above: Result Comment: Negative for Flu B protein antigen. Infection due to Flu B cannot be ruled out. FluB antigen in the sample may be below the detection limit of the test.Performed By: #### BMP, LIPA, YVETTE, LIVER #### [facility] [address] [place] [address] Dr. Idania King AGNegativeNormalNEGATIVE SEE COMMENTThe [facility] HospitalComment on above:Performed By: #### BMP, LIPA, YVETTE, LIVER #### [facility] [address] [place] [address] Dr. Idania Tavarez AGNegativeNormalNEGATIVE SEE COMMENTThe [facility] HospitalComment on above:Performed By: #### BMP, LIPA, YVETTE, LIVER #### [facility] [address] [place] [address] Dr. Idania RoldanINTERNAL CONTROLSWithin Normal LimitsNormalWithin Normal Limits The [facility] HospitalComment on above:Performed By: #### BMP, LIPA, YVETTE, LIVER #### [facility] [address] [place] [address] Dr. Idania RoldanComilton-19 PCR ([facility]VDPA[facility])on [id number]-CoV-2 (COVID-19) RNA MAMIE+probe Ql (Unsp spec)Not detectedNormalNOT DETECTEDThe [facility] Comment on above:Result Comment: This test is not yet approved or cleared by the [place] FDA. When there are no FDA-approved or cleared tests available, and other criteria are met, FDA can make tests available under an emergency access mechanism called an Emergency Use Authorization (EUA). The EUA for this test is supported by the [employer] of Health and Human Service's (HHS's) declaration that circumstances exist to justify the emergency use of in vitro diagnostics for the detection and/or diagnosis of the virus that causes COVID- 19. This EUA will remain in effect (meaning [...] of clinical signs and symptoms consistent with SARS-CoV-2.Performed By: #### BMP, LIPA, YVETTE, LIVER #### [facility] [address] [place] [address] Dr. Idania White AUTO DIFFon [id number] #0.0 103/ulNormal0.0-0.1The [facility] HospitalComment on above:Performed By: #### PT, PTT #### [facility] [address] [place] [address] Dr. Idania RoldanBasophils/100 WBC (Bld)0.4 %Normal0.2-2.0The [facility] Comment on above:Performed By: #### PT, PTT #### [facility] [address] [place] [address] Dr. Idania To #0.1 103/ulNormal0.0-0.7The [facility] HospitalComment on above: Performed By: #### PT, PTT #### [facility] [address] [place] [address] Dr. Idania Larkinosinophils/100 WBC (Bld)1.3 %Normal0.9-7.0The [facility] Comment on above:Performed By: #### PT, PTT #### [facility] [address] [place] [address] Dr. Idania Larkinrythrocyte distribution width (RBC) [Ratio]15.3 %Critically high 11.0-15.0The [facility] HospitalComment on above:Performed By: #### PT, PTT #### [facility] [address] [place] [address] Dr. Idania RoldanHematocrit (Bld) [Volume fraction]32.1 %Critically low36.0-48.0 The [facility] HospitalComment on above:Performed By: #### PT, PTT #### [facility] [address] [place] [address] Dr. Idania RoldanHemoglobin (Bld) [Mass/Vol]9.9 g/dLCritically low12.0-16.0The [facility] HospitalComment on above:Performed By: #### PT, PTT #### [facility] [address] [place] [address] Dr. Idania Benson #0.01 10e3/ulNormal0.00-0.03The [facility] HospitalComment on above:Performed By: #### PT, PTT #### [facility] [address] [place] [address] Dr. Idania Benson %0.1 %Normal0.0-0.5The [facility] HospitalComment on above: Performed By: #### PT, PTT #### [facility] [address] [place] [address] Dr. Idania Castro #2.7 103/ulNormal1.2-3.8The [facility] HospitalComment on above:Performed By: #### PT, PTT #### [facility] [address] [place] [address] Dr. Idania Juddhocytes/100 WBC (Bld)35.7 %Dwijsw89.5-60.0The [facility] HospitalComment on above:Performed By: #### PT, PTT #### [facility] [address] [place] [address] Dr. Idania CisseUAL DIFF REQNONormalThe [facility] HospitalComment on above: Performed By: #### PT, PTT #### [facility] [address] [place] [address] Dr. Idania Sofia (RBC) [Entitic mass]24.8 pgCritically low26.7-34.0The [facility] HospitalComment on above:Performed By: #### PT, PTT #### [facility] [address] [place] [address] Dr. Idania Christensen (RBC) [Mass/Vol]30.8 g/eDYhdutg12.9-35.2The [facility] HospitalComment on above:Performed By: #### PT, PTT #### [facility] [address] [place] [address] Dr. Idania Christensen (RBC) [Entitic vol]80.5 fLCritically low81.0-99.0The [facility] HospitalComment on above:Performed By: #### PT, PTT #### [facility] [address] [place] [address] Dr. Idania Salazar #0.5 103/ulNormal0.3-0.8The [facility] HospitalComment on above:Performed By: #### PT, PTT #### [facility] [address] [place] [address] Dr. Idania Chavezocytes/100 WBC (Bld)6.1 %Normal1.7-12.0The [facility] Comment on above:Performed By: #### PT, PTT #### [facility] [address] [place] [address] Dr. Idania Santa #4.2 103/ulNormal1.4-6.5The [facility] HospitalComment on above:Performed By: #### PT, PTT #### [facility] [address] [place] [address] Dr. Idania Sonutrophils/100 WBC (Bld)56.4 %Wursbq46.0-75.0The [facility] HospitalComment on above:Performed By: #### PT, PTT #### [facility] [address] [place] [address] Dr. Idania Bonds mean volume (Bld) [Entitic vol]9.4 fLCritically low 9.5-13.5The [facility] HospitalComment on above:Performed By: #### PT, PTT #### [facility] [address] [place] [address] Dr. Idania FloresT296 103/ptKikaeb291-311Nxh [facility] HospitalComment on above: Performed By: #### PT, PTT #### [facility] [address] [place] [address] Dr. Idania RoldanRBC3.99 106/ulCritically low4.20-5.40The [facility] HospitalComment on above:Performed By: #### PT, PTT #### [facility] [address] [place] [address] Dr. Idania RoldanWBC7.5 103/ulNormal4.0-11.0The [facility] HospitalComment on above: Performed By: #### PT, PTT #### [facility] [address] [place] [address] Dr. Idania RoldanCT ABD/PELV W CONon [id number] ABD/PELV W CONEXAMINATION: CT ABD/PELV W CON HISTORY: GENERALIZED ABDOMINAL PAIN ; [...] Electronically authenticated by: RUSSELL DUFF Date: 2022-08-21 12:35[facility] URINE PROFILEon [id number] Ql (U)Unable to perform testing due to color interference.AbnormalNEGATIVEThe [facility] HospitalComment on above:Performed By: #### BMP, LIPA, YVETTE, LIVER #### [facility] [address] [place], [place] [address] Dr. Idania RoldanClarity (U)TURBIDAbnormalCLEARThe [facility] HospitalComment on above:Performed By: #### BMP, LIPA, YVETTE, LIVER #### [facility] [address] [place] [address] [address] Idania Wagner (U)REDAbnormalYELLOWThe [facility] HospitalComment on above: Performed By: #### BMP, LIPA, YVETTE, LIVER #### [facility] [address] [address] [address] Idania Phelps micrscopic examination will be performed if indicated. NormalThe [facility] HospitalComment on above:Performed By: #### BMP, LIPA, YVETTE, LIVER #### [facility] [address] [address] [address] Idania Naranjo Ql (U)Unable to perform testing due to color interference.AbnormalNEGATIVEMercy Health HospitalComment on above:Performed By: #### BMP, LIPA, YVETTE, LIVER #### [facility] [address] [place] [address] Dr. Idania Cerdaoglobin Ql (U)Unable to perform testing due to color interference.AbnormalNEGATIVEMercy Health HospitalComment on above:Performed By: #### BMP, LIPA, YVETTE, LIVER #### [facility] [address] [place] [address] Dr. Idania Gómez Ql (U)Unable to perform testing due to color interference.AbnormalNEGATIVEMercy Health HospitalComment on above:Performed By: #### BMP, LIPA, YVETTE, LIVER #### [facility] [address] [address] [address] Idania ThompsonUnable to perform testing due to color interference. AbnormalNEGATIVEMercy Health HospitalComment on above:Performed By: #### BMP, LIPA, YVETTE, LIVER #### [facility] [address] [place] [address] Dr. Idania Galicia Ql (U)Unable to perform testing due to color interference.AbnormalNEGATIVEMercy Health HospitalComment on above:Performed By: #### BMP, LIPA, YVETTE, LIVER #### [facility] [address] [place] [address] Dr. Idania Lino to perform testing due to color interference.Abnormal5-9 The [facility] HospitalComment on above:Performed By: #### BMP, LIPA, YVETTE, LIVER #### [facility] [address] [address] [address] Idania RoldanSPEC GRAVITY1.045Bhyyzw6.005-<=1.025The [facility] HospitalComment on above:Performed By: #### BMP, LIPA, YVETTE, LIVER #### [facility] [address] [address] [address] Idania Bee PROTEINNorris to perform testing due to color interference. NormalNEGATIVE/ TRACEThe [facility] HospitalComment on above:Performed By: #### BMP, LIPA, YVETTE, LIVER #### [facility] [address] [place] [address] Dr. Idania Ventura MICRO INDINDICATEDNormalThe [facility] HospitalComment on above: Performed By: #### BMP, LIPA, YVETTE, LIVER #### [facility] [address] [place] [address] Dr. Idania HancockBILINOGENNorris to perform testing due to color interference. Normal0.2 - 1.0The [facility] HospitalComment on above:Performed By: #### BMP, LIPA, YVETTE, LIVER #### [facility] [address] [place] [address] Dr. Idania RoldanPROF 14(COMP METB)on [id number] [Mass/Vol]4.2 g/dLNormal 3.4-5.0The [facility] HospitalComment on above:Performed By: #### PT, PTT #### [facility] [address] [place] [address] Dr. Idania RoldanAlbumin/Globulin [Mass ratio]1.0 {ratio}NormalThe [facility] HospitalComment on above:Performed By: #### PT, PTT #### [facility] [address] [place] [address] Dr. Idania SalasP [Catalytic activity/Vol]91 U/NVdvbpm77-442And [facility] HospitalComment on above:Performed By: #### PT, PTT #### [facility] [address] [address] [address] Idania SalasT [Catalytic activity/Vol]15 U/UTscgrp86-08Svj [facility] HospitalComment on above:Performed By: #### PT, PTT #### [facility] [address] [address] [address] Idania Peraltaon gap [Moles/Vol]9.6 mmol/LNormalThe [facility] HospitalComment on above:Performed By: #### PT, PTT #### [facility] [address] [address] [address] Idania RoldanAST [Catalytic activity/Vol]14 U/LCritically kur41-05Cjr [facility] HospitalComment on above:Performed By: #### PT, PTT #### [facility] [address] [place] [address] Dr. Idania RoldanBilirubin [Mass/Vol]0.2 mg/dLNormal0.2-1.0The [facility] Comment on above:Performed By: #### PT, PTT #### [facility] [address] [address] [address] Idania RoldanCalcium [Mass/Vol]9.2 mg/dLNormal8.5-10.1The [facility] Comment on above:Performed By: #### PT, PTT #### [facility] [address] [address] [address] Idania RoldanChloride [Moles/Vol]103 mmol/CJracgb15-669Yzd [facility] Comment on above:Performed By: #### PT, PTT #### [facility] [address] [address] [address] Idania RoldanCO2 [Moles/Vol]31.2 mmol/GGvpjxx17.0-32.0The [facility] Comment on above:Performed By: #### PT, PTT #### [facility] [address] [address] [address] Idania RoldanCreatinine [Mass/Vol]0.76 mg/dLNormal0.55-1.02The [facility] HospitalComment on above:Performed By: #### PT, PTT #### [facility] [address] [address] [address] Idania LarkinGFR-AF SLOVENIAN>60Normal>=60The [facility] HospitalComment on above:Performed By: #### PT, PTT #### [facility] [address] [address] [address] Idania LarkinGFR-NON AF SLOVENIAN>60Normal>=60The [facility] HospitalComment on above:Performed By: #### PT, PTT #### [facility] [address] [address] [address] Idania RoldanGlobulin (S) [Mass/Vol]4.2 g/dLNormalThe [facility] HospitalComuniversity [facility] on above:Performed By: #### PT, PTT #### [facility] [address] [address] [address] Idania RoldanGlucose [Mass/Vol]107 mg/dLCritically qjfp85-211Lzj [facility] Hospitalment on above:Performed By: #### PT, PTT #### [facility] [address] [address] [address] Idania RoldanPotassium [Moles/Vol]3.8 mmol/LNormal3.5-5.1The [facility] Comment on above:Performed By: #### PT, PTT #### [facility] [address] [address] [address] Idania RoldanProtein [Mass/Vol]8.4 g/dLCritically high6.4-8.2[facility] on above:Performed By: #### PT, PTT #### [facility] [address] [address] [address] Idania RoldanSodium [Moles/Vol]140 mmol/OTqbudw740-955Knq [facility] Comment on above:Performed By: #### PT, PTT #### [facility] [address] [address] [address] Idania RoldanUrea nitrogen [Mass/Vol]12.0 mg/dLNormal7.0-18.0[facility] HospitalComment on above:Performed By: #### PT, PTT #### [facility] [address] [address] [address] Idania RoldanUrea nitrogen/Creatinine [Mass ratio]15.8 mg/mgNoSouthview Medical CenterComment on above:Performed By: #### PT, PTT #### [facility] [address] [place] [address] Dr. Idania Mcintosh MICROSCOPIC ONLYon [id number] SEENNormalNONE SEENMedina HospitalComment on above:Performed By: #### BMP, LIPA, YVETTE, LIVER #### [facility] [address] [place] [address] Dr. Idania Kinney identified Cx Nom (U)NOT INDICATEDNoSouthview Medical CenterComuniversity of [facility] on above:Performed By: #### BMP, LIPA, YVETTE, LIVER #### [facility] [address] [place] [address] Dr. Idania Marqeuz SEENNormalNONE SEENMedina HospitalComun[facility] of [facility] on above:Performed By: #### BMP, LIPA, YVETTE, LIVER #### [facility] [address] [place] [address] Dr. Idania Barajas LM Nom (Urine sed)NONE SEENNormalNONE SEENMedina HospitalComun[facility] of [facility] on above:Performed By: #### BMP, LIPA, YVETTE, LIVER #### [facility] [address] [place] [address] Dr. Emerson ChangEpithelial cells LM Ql (Urine sed)RARENormalNONE SEEN /RAREMedina HospitalComuniversity of [facility] on above:Performed By: #### BMP, LIPA, YVETTE, LIVER #### [facility] [address] [place] [address] Dr. Idania RubinUSNONE SEENNormalNONE SEENMedina HospitalComun[facility] of [facility] on above:Performed By: #### BMP, LIPA, YVETTE, LIVER #### [facility] [address] [place] [address] Dr. Idania Stanton (U) [#/Vol]/uLAbnormal0-2The [facility] HospitalComment on above:Performed By: #### BMP, LIPA, YVETTE, LIVER #### [facility] [address] [address] [address] Idania GarciaBC2-5AbnormalNONE SEENThe [facility] HospitalComment on above: Performed By: #### BMP, LIPA, YVETTE, LIVER #### [facility] [address] [address] [address] Idania White AUTO DIFFon [id number] #0.0 103/ulNormal0.0-0.1The [facility] HospitalComment on above:Performed By: #### PT, PTT #### [facility] [address] [place] [address] Dr. Idania RoldanBasophils/100 WBC (Bld)0.4 %Normal0.2-2.0[facility] Comment on above:Performed By: #### PT, PTT #### [facility] [address] [place] [address] Dr. Idania To #0.1 103/ulNormal0.0-0.7The [facility] HospitalComment on above: Performed By: #### PT, PTT #### [facility] [address] [place] [address] Dr. Idania Larkinosinophils/100 WBC (Bld)2.0 %Normal0.9-7.0The [facility] Comment on above:Performed By: #### PT, PTT #### [facility] [address] [place] [address] Dr. Idania Larkinrythrocyte distribution width (RBC) [Ratio]14.8 %Ktwqxs36.0-15.0 The [facility] HospitalComment on above:Performed By: #### PT, PTT #### [facility] [address] [place] [address] Dr. Idania RoldanHematocrit (Bld) [Volume fraction]31.5 %Critically low36.0-48.0 The [facility] HospitalComment on above:Performed By: #### PT, PTT #### [facility] [address] [place] [address] Dr. Idania RoldanHemoglobin (Bld) [Mass/Vol]9.5 g/dLCritically low12.0-16.0The [facility] Hospitalment on above:Performed By: #### PT, PTT #### [facility] [address] [place] [address] Dr. Idania Benson #0.01 10e3/ulNormal0.00-0.03The [facility] HospitalComun[facility] on above:Performed By: #### PT, PTT #### [facility] [address] [place] [address] Dr. Idania Benson %0.2 %Normal0.0-0.5The [facility] HospitalComment on above: Performed By: #### PT, PTT #### [facility] [address] [place] [address] Dr. Idania Castro #1.4 103/ulNormal1.2-3.8The [facility] HospitalComment on above:Performed By: #### PT, PTT #### [facility] [address] [place] [address] Dr. Idania Juddhocytes/100 WBC (Bld)29.9 %Mifojs16.5-60.0The [facility] HospitalComun[facility] on above:Performed By: #### PT, PTT #### [facility] [address] [place] [address] Dr. Idania CisseUAL DIFF REQNONormalThe [facility] HospitalComment on above: Performed By: #### PT, PTT #### [facility] [address] [place] [address] Dr. Idania Sofia (RBC) [Entitic mass]24.4 pgCritically low26.7-34.0The [facility] Hospitalment on above:Performed By: #### PT, PTT #### [facility] [address] [place] [address] Dr. Idania Christensen (RBC) [Mass/Vol]30.2 g/jDKivbfy67.9-35.2The [facility] HospitalComment on above:Performed By: #### PT, PTT #### [facility] [address] [place] [address] Dr. Idania Miramontes (RBC) [Entitic vol]80.8 fLCritically low81.0-99.0The [facility] HospitalComment on above:Performed By: #### PT, PTT #### [facility] [address] [place] [address] Dr. Idania Salazar #0.2 103/ulCritically low0.3-0.8The [facility] HospitalComment on above:Performed By: #### PT, PTT #### [facility] [address] [place] [address] Dr. Idania Chavezocytes/100 WBC (Bld)5.2 %Normal1.7-12.0The [facility] Comment on above:Performed By: #### PT, PTT #### [facility] [address] [place] [address] Dr. Idania Santa #2.9 103/ulNormal1.4-6.5The [facility] HospitalComment on above:Performed By: #### PT, PTT #### [facility] [address] [place] [address] Dr. Idania Sonutrophils/100 WBC (Bld)62.3 %Wronze27.0-75.0The [facility] HospitalComment on above:Performed By: #### PT, PTT #### [facility] [address] [place] [address] Dr. Idania Bonds mean volume (Bld) [Entitic vol]8.6 fLCritically low 9.5-13.5The [facility] Hospitalment on above:Performed By: #### PT, PTT #### [facility] [address] [place] [address] Dr. Idania FloresT269 103/gvGsnmwj001-241Keo [facility] HospitalComment on above: Performed By: #### PT, PTT #### [facility] [address] [place] [address] Dr. Idania RoldanRBC3.90 106/ulCritically low4.20-5.40The [facility] HospitalComment on above:Performed By: #### PT, PTT #### [facility] [address] [place] [address] Dr. Idania RoldanWBC4.6 103/ulNormal4.0-11.0The [facility] HospitalComment on above: Performed By: #### PT, PTT #### [facility] [address] [place] [address] Dr. Idania RoldanPROF CHEM 8 (BAS METB)on [id number] gap [Moles/Vol]9.0 mmol/LNormalThe [facility] HospitalComment on above:Performed By: #### BMP, LIPA, YVETTE, LIVER #### [facility] [address] [place] [address] Dr. Idania RoldanCalcium [Mass/Vol]9.1 mg/dLNormal8.5-10.1The [facility] Comment on above:Performed By: #### BMP, LIPA, YVETTE, LIVER #### [facility] [address] [place] [address] Dr. Idania RoldanChloride [Moles/Vol]104 mmol/WGhcgkg17-933Yur [facility] Comment on above:Performed By: #### BMP, LIPA, YVETTE, LIVER #### [facility] [address] [place] [address] Dr. Idania RoldanCO2 [Moles/Vol]31.5 mmol/XMhnyvo89.0-32.0The [facility] Comment on above:Performed By: #### BMP, LIPA, YVETTE, LIVER #### [facility] [address] [place] [address] Dr. Idania RoldanCreatinine [Mass/Vol]0.59 mg/dLNormal0.55-1.02The [facility] HospitalComment on above:Performed By: #### BMP, LIPA, YVETTE, LIVER #### [facility] [address] [place] [address] Dr. Idania LarkinGFR-AF SLOVENIAN>60Normal>=60The [facility] HospitalComment on above:Performed By: #### BMP, LIPA, YVETTE, LIVER #### [facility] [address] [address] [address] Idania LarkinGFR-NON AF SLOVENIAN>60Normal>=60The [facility] HospitalComment on above:Performed By: #### BMP, LIPA, YVETTE, LIVER #### [facility] [address] [address] [address] Idania RoldanGlucose [Mass/Vol]90 mg/dSMqaeuv25-658SnjMedina Hospital Comment on above:Performed By: #### BMP, LIPA, YVETTE, LIVER #### [facility] [address] [place] [address] Dr. Idania RoldanPotassium [Moles/Vol]4.5 mmol/LNormal3.5-5.1[facility] Comment on above:Performed By: #### BMP, LIPA, YVETTE, LIVER #### [facility] [address] [place] [address] Dr. Idania RoldanSodium [Moles/Vol]140 mmol/QYsojem121-675Jxg [facility] Comment on above:Performed By: #### BMP, LIPA, YVETTE, LIVER #### [facility] [address] [place] [address] Dr. Idania RoldanUrea nitrogen [Mass/Vol]8.0 mg/dLNormal7.0-18.0The [facility] HospitalComment on above:Performed By: #### BMP, LIPA, YVETTE, LIVER #### [facility] [address] [place] [address] Dr. Idania RoldanUrea nitrogen/Creatinine [Mass ratio]13.6 mg/mgNormalThe [facility] HospitalComment on above:Performed By: #### BMP, LIPA, YVETTE, LIVER #### [facility] [address] [place] [address] Dr. Idania MonteiroIMEluis [id number] Coag (PPP) [Relative time]0.93 {INR} NormalThe Monique HospitalComment on above:Performed By: #### BMP, LIPA, YVETTE, LIVER #### [facility] [address] [place] [address] Dr. Idania Helms GUIDELINESSEE BELOWNormalThMercy Health Fairfield HospitalComment on above:Result Comment: DESIRED INR: 2.0 - 3.0 CONDITIONS NOT LISTED BELOW 2.5 - 3.5 FOR PROSTHETIC HEART VALVE REPLACEMENT 2.5 - 3.5 RECURRENT THROMBOSIS Performed By: #### BMP, LIPA, YVETTE, LIVER #### [facility] [address] [place] [address] Dr. Idania RoldanPT Coag (PPP) [Time]10.1 sNormal9.0-11.6ThMercy Health Fairfield Hospital Comment on above:Performed By: #### BMP, LIPA, YVETTE, LIVER #### [facility] [address] [place] [address] Dr. Idania Vargas [id number] Coag (Bld) [Time]28.1 yVepbnu68.3-36.2Medina HospitalComment on above:Performed By: #### BMP, LIPA, YVETTE, LIVER #### [facility] [address] [place] [address] Dr. Idania RoldanCovid-19 PCR ([facility])on 37-01-1964ZYLB-CoV-2 (COVID-19) RNA MAMIE+probe Ql (Unsp spec)Not detectedNormalNOT DETECTEDMedina Hospital Comment on above:Result Comment: This test is not yet approved or cleared by the [place] FDA. When there are no FDA-approved or cleared tests available, and other criteria are met, FDA can make tests available under an emergency access mechanism called an Emergency Use Authorization (EUA). The EUA for this test is supported by the Helper Driver of Health and Human Service's (HHS's) declaration that circumstances exist to justify the emergency use of in vitro diagnostics for the detection and/or diagnosis of the virus that causes COVID- 19. This EUA will remain in effect (meaning [...] of clinical signs and symptoms consistent with SARS-CoV-2.Performed By: #### PT, PTT #### [facility] [address] [place] [address] Dr. Idania White AUTO DIFFon [id number] #0.0 103/ulNormal0.0-0.1The [facility] HospitalComment on above:Performed By: #### PT, PTT #### [facility] [address] [place] [address] Dr. Idania RoldanBasophils/100 WBC (Bld)0.2 %Normal0.2-2.0[facility] Comment on above:Performed By: #### PT, PTT #### [facility] [address] [place] [address] Dr. Idania To #0.1 103/ulNormal0.0-0.7The [facility] HospitalComment on above: Performed By: #### PT, PTT #### [facility] [address] [place] [address] Dr. Idania Larkinosinophils/100 WBC (Bld)1.3 %Normal0.9-7.0[facility] Comment on above:Performed By: #### PT, PTT #### [facility] [address] [place] [address] Dr. Idania Larkinrythrocyte distribution width (RBC) [Ratio]16.4 %Critically high 11.0-15.0The [facility] HospitalComment on above:Performed By: #### PT, PTT #### [facility] [address] [place] [address] Dr. Idania RoldanHematocrit (Bld) [Volume fraction]33.2 %Critically low36.0-48.0 The [facility] HospitalComment on above:Performed By: #### PT, PTT #### [facility] [address] [place] [address] Dr. Idania RoldanHemoglobin (Bld) [Mass/Vol]10.3 g/dLCritically low12.0-16.0The [facility] HospitalComment on above:Performed By: #### PT, PTT #### [facility] [address] [place] [address] Dr. Idania Benson #0.01 10e3/ulNormal0.00-0.03The [facility] HospitalComment on above:Performed By: #### PT, PTT #### [facility] [address] [place] [address] Dr. Idania Benson %0.2 %Normal0.0-0.5The [facility] HospitalComment on above: Performed By: #### PT, PTT #### [facility] [address] [place] [address] Dr. Idania Castro #1.8 103/ulNormal1.2-3.8The [facility] HospitalComment on above:Performed By: #### PT, PTT #### [facility] [address] [place] [address] Dr. Idania Juddhocytes/100 WBC (Bld)38.8 %Slpvxn09.5-60.0The [facility] HospitalComuniversity of [facility] on above:Performed By: #### PT, PTT #### [facility] [address] [place] [address] Dr. Idania CisseUAL DIFF REQNONormalThe [facility] HospitalComment on above: Performed By: #### PT, PTT #### [facility] [address] [place] [address] Dr. Idania Christensen (RBC) [Entitic mass]25.9 pgCritically low26.7-34.0The [facility] HospitalComment on above:Performed By: #### PT, PTT #### [facility] [address] [place] [address] Dr. Idania Christensen (RBC) [Mass/Vol]31.0 g/hTFxpwuv06.9-35.2The [facility] HospitalComment on above:Performed By: #### PT, PTT #### [facility] [address] [place] [address] Dr. Idania ChristensenV (RBC) [Entitic vol]83.4 cDPcnajl19.0-99.0The [facility] Hospitalment on above:Performed By: #### PT, PTT #### [facility] [address] [place] [address] Dr. Idania Salazar #0.3 103/ulNormal0.3-0.8The [facility] HospitalComment on above:Performed By: #### PT, PTT #### [facility] [address] [place] [address] Dr. Idania Chavezocytes/100 WBC (Bld)6.1 %Normal1.7-12.0The [facility] on above:Performed By: #### PT, PTT #### [facility] [address] [place] [address] Dr. Idania Santa #2.5 103/ulNormal1.4-6.5The [facility] Hospitalment on above:Performed By: #### PT, PTT #### [facility] [address] [place] [address] Dr. Idania Sonutrophils/100 WBC (Bld)53.4 %Kjpmdx11.0-75.0The [facility] on above:Performed By: #### PT, PTT #### [facility] [address] [place] [address] Dr. Idania Moralet mean volume (Bld) [Entitic vol]10.1 fLNormal9.5-13.5The [facility] Hospitalment on above:Performed By: #### PT, PTT #### [facility] [address] [place] [address] Dr. Idania RoldanPLT239 103/mxJyukix913-773Bft [facility] Hospitalment on above: Performed By: #### PT, PTT #### [facility] [address] [place] [address] Dr. Idania RoldanRBC3.98 106/ulCritically low4.20-5.40The [facility] HospitalComment on above:Performed By: #### PT, PTT #### [facility] [address] [address] [address] Idania RoldanWBC4.6 103/ulNormal4.0-11.0The [facility] HospitalComment on above: Performed By: #### PT, PTT #### [facility] [address] [address] [address] Idania RoldanPROF CHEM 8 (BAS METB)on 46-06-6159Azbdo gap [Moles/Vol]8.4 mmol/LNormalThe [facility] HospitalComment on above:Performed By: #### BMP #### [facility] [address] [place] [address] Dr. Idania RoldanCalcium [Mass/Vol]9.3 mg/dLNormal8.5-10.1The [facility] Comment on above:Performed By: #### BMP #### [facility] [address] [place] [address] Dr. Idania RoldanChloride [Moles/Vol]103 mmol/KUglnme29-892Kab [facility] Comment on above:Performed By: #### BMP #### [facility] [address] [place] [address] Dr. Idania RoldanCO2 [Moles/Vol]32.9 mmol/LCritically high21.0-32.0The [facility] HospitalComment on above:Performed By: #### BMP #### [facility] [address] [place] [address] Dr. Idania RoldanCreatinine [Mass/Vol]0.70 mg/dLNormal0.55-1.02The [facility] HospitalComment on above:Performed By: #### BMP #### [facility] [address] [place] [address] Dr. Idania LarkinGFR-AF SLOVENIAN>60Normal>=60The [facility] HospitalComment on above:Performed By: #### BMP #### [facility] [address] [place] [address] Dr. Idania LarkinGFR-NON AF SLOVENIAN>60Normal>=60The [facility] HospitalComment on above:Performed By: #### BMP #### [facility] [address] [address] [address] Idania RoldanGlucose [Mass/Vol]73 mg/dLCritically dei24-693Tzl [facility] HospitalComment on above:Performed By: #### BMP #### [facility] [address] [address] [address] Idania RoldanPotassium [Moles/Vol]4.3 mmol/LNormal3.5-5.1[facility] Comment on above:Performed By: #### BMP #### [facility] [address] [place] [address] Dr. Idania RoldanSodium [Moles/Vol]140 mmol/QUdkrpj298-007Dvu [facility] Comment on above:Performed By: #### BMP #### [facility] [address] [place] [address] Dr. Idania RoldanUrea nitrogen [Mass/Vol]16.0 mg/dLNormal7.0-18.0The [facility] HospitalComment on above:Performed By: #### BMP #### [facility] [address] [place] [address] Dr. Idania Licona nitrogen/Creatinine [Mass ratio]22.9 mg/mgNoSouthview Medical CenterComment on above:Performed By: #### BMP #### [facility] [address] [place] [address] Dr. Idania Gill 74-01-1940OTP Coag (PPP) [Relative time]1.00 {INR} NormalThe [facility] HospitalComun[facility] of [facility] on above:Performed By: #### PT, PTT #### [facility] [address] [place] [address] Dr. Idania Helms GUIDELINESSEE BELOWLima City HospitalComment on above:Result Comment: DESIRED INR: 2.0 - 3.0 CONDITIONS NOT LISTED BELOW 2.5 - 3.5 FOR PROSTHETIC HEART VALVE REPLACEMENT 2.5 - 3.5 RECURRENT THROMBOSIS Performed By: #### PT, PTT #### [facility] [address] [place], [place] [address] Dr. Idania RoldanPT Coag (PPP) [Time]10.8 sNormal9.0-11.6The [facility] Comment on above:Performed By: #### PT, PTT #### [facility] [address] [place], [place] [address] Dr. Idania Vargas [id number] Coag (Bld) [Time]29.3 uCcenen14.3-36.2The [facility] HospitalComment on above:Performed By: #### PT, PTT #### [facility] [address] [place], [place] [address] Dr. Idania RoldanOperative Reporton [id number] ReportMR#: [id number] I [facility] Pt. Name: Elvi Moore Room #: [id number] Discharge 06/01/2022 Date: Birthdate: 1980 OPERATIVE REPORT DATE OF SURGERY: 06/01/2022 SURGEON: Kevin Lane M.D. MEDIA TECHNICIAN: Duy Cavazos ANESTHESIA: General anesthesia. ESTIMATED [...] arthrotomy was closed with soft #2 interrupted jmrrhk-ta-besnu suture. The remainder of the incision closed in layered fashion. Sterile dressing applied. At the conclusion of the case, all sponge and needle counts correct. I was present for the critical portions of this case. Electronically Signed by: Kevin Lane M.D. 06/09/2022 07:[address] M.D. Date Dict: 06/03/2022/07:15 A/Kevin Lane M.D. Date Trans: 06/03/2022 08:09 A/taylor DN_JN:[id number] cc: Arleth Acharya M.D. [address], [facility] [id number] Medical [facility] [place]*ANAEROBIC CULTUREon 06-01-2022*ANAEROBIC CULTUREClinical Report: (D) Specimen/Source: FLUID/INTRAOP SPEC Collected: 06/01/2022 14:08 Status: Final Last Updated: 06/06/2022 06:35 (1) 1. LEFT KNEE JOINT FLUID CULT RES (Final) No Anaerobes Isolated 5 DaysNoOhioHealth Grant Medical CenterComment on above:Order Comment: 1. LEFT KNEE JOINT FLUIDPerformed By: #### [id number] ####[facility] *ANAEROBIC CULTUREClinical Report: (D) Specimen/Source: TISSUE/INTRAOP SPEC Collected: 06/01/2022 14:08 Status: Final Last Updated: 06/06/2022 06:35 (1) 2. LEFT KNEE MEDIAL SYNOVIUM CULT RES (Final) No Anaerobes Isolated 5 DaysNoOhioHealth Grant Medical CenterComment on above:Order Comment: 2. LEFT KNEE MEDIAL SYNOVIUMPerformed By: #### [id number] #### [facility] [address]*ANAEROBIC CULTUREClinical Report: (D) Specimen/Source: TISSUE/INTRAOP SPEC Collected: 06/01/2022 14:08 Status: Final Last Updated: 06/06/2022 06:35 (1) 3. LEFT KNEE LATERAL SYNOVIUM CULT RES (Final) No Anaerobes Isolated 5 DaysNoOhioHealth Grant Medical CenterComment on above:Order Comment: 3. LEFT KNEE LATERAL SYNOVIUMPerformed By: #### [id number] #### [facility] [address]*BODY FLUID CULTUREon 06-01-2022*BODY FLUID CULTUREClinical Report: (D) Specimen/Source: FLUID/INTRAOP SPEC Collected: 06/01/2022 14:08 Status: Final Last Updated: 06/06/2022 06:39 (1) 1. LEFT KNEE JOINT FLUID GRAM (Final) Quantity Not Sufficient CULT RES (Final) No Growth Day [facility], AvonComment on above: Order Comment: 1. LEFT KNEE JOINT FLUIDPerformed By: #### [id number] ####[facility]*TISSUE CULTURE on 06-01-2022*TISSUE CULTUREClinical Report: (D) Specimen/Source: TISSUE/INTRAOP SPEC Collected: 06/01/2022 14:08 Status: Final Last Updated: 06/06/2022 06:40 (1) 2. LEFT KNEE MEDIAL SYNOVIUM GRAM (Final) Many Polys No Bacteria Seen CULT RES (Final) No Growth Day [address] [place], [place] [address]Comment on above: Order Comment: 2. LEFT KNEE MEDIAL SYNOVIUMPerformed By: #### [id number] ####[facility] *TISSUE CULTUREClinical Report: (D) Specimen/Source: TISSUE/INTRAOP SPEC Collected: 06/01/2022 14:08 Status: Final Last Updated: 06/06/2022 06:39 (1) 3. LEFT KNEE LATERAL SYNOVIUM GRAM (Final) Many Polys No Bacteria Seen CULT RES (Final) No Growth Day [address] [place], [place] [address]Comment on above: Order Comment: 3. LEFT KNEE LATERAL SYNOVIUMPerformed By: #### [id number] ####[facility] [facility] [place] [address], [facility] POC GLUCOSE LABon [id number] [Mass/Vol]86 mg/wEUjumjb95-171Bjt [facility] HospitalComment on above:Performed By: #### [id number] #### [facility] [address] [facility] [place] [address], USAPORTABLE KNEE LEFT 2 VWSon 08-04-0277YUOITZQQ KNEE LEFT 2 SUniversOhioHealth Riverside [facility] Hospital Department of Radiology [address] [place] [id number] Patient Name: ELVI MOORE : 1980 Sex: [...] planned Electronically signed: Yvette Andrade. Transcribed by: [email or web address], User Resident: Electronically Signed by: YVETTE ANDRADE @ 06/02/2022 08:53 AMNormalThe [facility] HospitalComment on above:Order Comment: Hardware Evaluation, in PACU*MRSA/MSSA DNA NASALon 05-26-2022*MRSA/MSSA DNA NASALClinical Report: (D) Specimen: NASAL SWAB Collected: 05/26/2022 15:23 Status: Final Last Updated: 05/27/2022 13:43 MSSA DNA (Final) Negative MRSA DNA (Final) NegativeNormalThOhioHealth Van Wert HospitalComment on above:Performed By: #### [id number] #### [facility] [address] [facility] [place] [address], USAC REACTIVE PROTEINon [id number] [Mass/Vol]1.3 mg/LNormal 0.0-7.0The [facility] HospitalComment on above:Performed By: #### [id number] #### [facility] [address] [facility] [place] [address], USACBC W/DIFFon [id number] IMM GRANS0.0 10*3/uLNormal 0.0-0.2The [facility] HospitalComment on above:Performed By: #### [id number] #### [facility] [address] [place] [address], USAABS NEUTROPHILS2.5 10*3/uLNormal1.6-7.6The [facility] HospitalComment on above:Performed By: #### [id number] #### [facility] [address] [place] [address], USABasophils (Bld) [#/Vol]0.0 10*3/uLNormal0.0-0.2The [facility] HospitalComment on above:Performed By: #### [id number] #### [facility] [address] [place] [address], USABasophils/100 WBC (Bld)0.3 %Normal0.0-1.0The [facility] HospitalComment on above:Performed By: #### [id number] #### [facility] [address] [facility] [place] [address], USAEosinophils (Bld) [#/Vol]0.1 10*3/uLNormal0.0-0.5The [facility] HospitalComment on above:Performed By: #### [id number] #### [facility] [address] [facility] [place] [address], USAEosinophils/100 WBC (Bld)1.5 %Normal0.0-6.0The [facility] HospitalComment on above:Performed By: #### [id number] #### [facility] [address] [place] [address], USAErythrocyte distribution width (RBC) [Ratio]15.9 %High 11.5-15.0The [facility] HospitalComment on above:Performed By: #### [id number] #### [facility] [address] [place] [address], USAHematocrit (Bld) [Volume fraction]35.0 %Low36.0-45.0The [facility] HospitalComment on above:Performed By: #### [id number] #### [facility] [address] [facility] [place] [address], USAHemoglobin (Bld) [Mass/Vol]10.6 g/dLLow12.0-15.0The [facility] HospitalComment on above:Performed By: #### [id number] #### [facility] [address] [facility] [place] [address], USAIMMATURE GRANS0.2 %Normal0.0-1.0The [facility] HospitalComment on above:Performed By: #### [id number] #### [facility] [address] [place] [address], USALymphocytes (Bld) [#/Vol]2.8 10*3/uLNormal1.2-4.0The [facility] HospitalComment on above:Performed By: #### [id number] #### [facility] [address] [place] [address], USALymphocytes/100 WBC (Bld)48.0 %High20.0-45.0The [facility] HospitalComment on above:Performed By: #### [id number] #### [facility] [address] [place] [address], [facility]ENTERMCH (RBC) [Entitic mass]24.5 pgLow27.0-33.0The [facility] HospitalComment on above:Performed By: #### [id number] #### [facility] [address] [place] [address], USAMCHC (RBC) [Mass/Vol]30.3 g/dLLow32.0-35.0The [facility] HospitalComment on above:Performed By: #### [id number] #### [facility] [address] [place] [address], USAMCV (RBC) [Entitic vol]81.0 fLLow82.0-98.0The [facility] HospitalComment on above:Performed By: #### [id number] #### [facility] [address] [place] [address], USAMonocytes (Bld) [#/Vol]0.4 10*3/uLNormal0.1-1.0The [facility] HospitalComment on above:Performed By: #### [id number] #### [facility] [address] [place] [address], USAMONOS6.8 %Normal5.0-12.0The [facility] HospitalComment on above:Performed By: #### [id number] #### [facility] [address] [place] [address], USANeutrophils/100 WBC (Bld)43.2 %Mkicsd59.0-72.0The [facility] HospitalComment on above:Performed By: #### [id number] #### [facility] [address] [place] [address], USANucleated RBC/100 WBC (Bld) [Ratio]0 %Normal0-0The [facility] HospitalComment on above:Performed By: #### [id number] #### [facility] [address] [place] [address], USAPLAT [id number] 10*3/cAKddybj860-723Eax [facility] HospitalComment on above:Performed By: #### [id number] #### [facility] [address] [place] [address], USARBC (Bld) [#/Vol]4.32 10*6/uLNormal3.80-5.00The [facility] HospitalComment on above:Performed By: #### [id number] #### [facility] [address] [place] [address], USAWBC (Bld) [#/Vol]5.87 10*3/uLNormal4.00-10.60The [facility] HospitalComment on above:Performed By: #### [id number] #### [facility] [address] [place] [address], USAHEMOGLOBIN A1Con [id number] [Moles/Vol]100 mmol/L NormalThe [facility] HospitalComment on above:Performed By: #### [id number] #### [facility] [address] [place] [address], ZSRQuK9z (Bld) [Mass fraction]5.1 %Normal4.0-6.0The [facility] HospitalComment on above:Performed By: #### [id number] #### [facility] [address] [place] [address], USASEDIMENTATION RATEon [id number] RATE17 mm/hrNormal0-20 The [facility] HospitalComment on above:Performed By: #### [id number] #### [facility] [address] [place] [address], USAUS KIDNEYS BLADDERon [id number] KIDNEYS BLADDER EXAMINATION: US KIDNEYS BLADDER HISTORY: Kidney stone ; left flank [...] Electronically authenticated by: RUSSELL DUFF Date: 2022-05-02 16:18[facility] AUTO DIFFon [id number] #0.0 103/ulNormal0.0-0.1The [facility] HospitalComment on above:Performed By: #### MANOLO LIPA, YVETTE, LIVER #### [facility] [address] [address] [address] Idania Valentinsophils/100 WBC (Bld)0.3 %Normal0.2-2.0The [facility] Comment on above:Performed By: #### BMP, LIPA, YVETTE, LIVER #### [facility] [address] [place] [address] Dr. Idania To #0.1 103/ulNormal0.0-0.7The [facility] HospitalComment on above: Performed By: #### BMP, LIPA, YVETTE, LIVER #### [facility] [address] [place] [address] Dr. Idania Larkinosinophils/100 WBC (Bld)0.9 %Normal0.9-7.0The [facility] Comment on above:Performed By: #### BMP, LIPA, YVETTE, LIVER #### [facility] [address] [place] [address] Dr. Idania Larkinrythrocyte distribution width (RBC) [Ratio]15.4 %Critically high 11.0-15.0The [facility] HospitalComment on above:Performed By: #### BMP, LIPA, YVETTE, LIVER #### [facility] [address] [place] [address] Dr. Idania RoldanHematocrit (Bld) [Volume fraction]36.0 %Qjfjyz63.0-48.0The [facility] HospitalComment on above:Performed By: #### BMP, LIPA, YVETTE, LIVER #### [facility] [address] [place] [address] Dr. Idania RoldanHemoglobin (Bld) [Mass/Vol]11.2 g/dLCritically low12.0-16.0The [facility] HospitalComment on above:Performed By: #### BMP, LIPA, YVETTE, LIVER #### [facility] [address] [place] [address] Dr. Idania RoldanIG #0.02 10e3/ulNormal0.00-0.03The [facility] HospitalComment on above:Performed By: #### BMP, LIPA, YVETTE, LIVER #### [facility] [address] [place] [address] Dr. Idania RoldanIG %0.3 %Normal0.0-0.5The [facility] HospitalComment on above: Performed By: #### BMP, LIPA, YVETTE, LIVER #### [facility] [address] [place] [address] Dr. Idania Castro #2.5 103/ulNormal1.2-3.8The [facility] HospitalComment on above:Performed By: #### BMP, LIPA, YVETTE, LIVER #### [facility] [address] [place] [address] Dr. Idania Juddhocytes/100 WBC (Bld)36.2 %Cgjxot55.5-60.0The [facility] HospitalComment on above:Performed By: #### BMP, LIPA, YVETTE, LIVER #### [facility] [address] [place] [address] Dr. Idania Pratt DIFF REQNONormalThe [facility] HospitalComment on above: Performed By: #### BMP, LIPA, YVETTE, LIVER #### [facility] [address] [place] [address] Dr. Idania Christensen (RBC) [Entitic mass]24.9 pgCritically low26.7-34.0The [facility] HospitalComment on above:Performed By: #### BMP, LIPA, YVETTE, LIVER #### [facility] [address] [place] [address] Dr. Idania Christensen (RBC) [Mass/Vol]31.1 g/aNOzvamr77.9-35.2The [facility] HospitalComment on above:Performed By: #### BMP, LIPA, YVETTE, LIVER #### [facility] [address] [place] [address] Dr. Idania Christensen (RBC) [Entitic vol]80.2 fLCritically low81.0-99.0The [facility] HospitalComment on above:Performed By: #### BMP, LIPA, YVETTE, LIVER #### [facility] [address] [place] [address] Dr. Idania Salazar #0.5 103/ulNormal0.3-0.8The [facility] HospitalComment on above:Performed By: #### BMP, LIPA, YVETTE, LIVER #### [facility] [address] [place] [address] Dr. Idania Chavezocytes/100 WBC (Bld)6.7 %Normal1.7-12.0The [facility] Comment on above:Performed By: #### BMP, LIPA, YVETTE, LIVER #### [facility] [address] [place] [address] Dr. Idania Santa #3.8 103/ulNormal1.4-6.5The [facility] HospitalComment on above:Performed By: #### BMP, LIPA, YVETTE, LIVER #### [facility] [address] [place] [address] Dr. Idania Sonutrophils/100 WBC (Bld)55.6 %Fzjkzu18.0-75.0The [facility] HospitalComment on above:Performed By: #### BMP, LIPA, YVETTE, LIVER #### [facility] [address] [place] [address] Dr. Idania Moralet mean volume (Bld) [Entitic vol]9.9 fLNormal9.5-13.5The [facility] HospitalComment on above:Performed By: #### BMP, LIPA, YVETTE, LIVER #### [facility] [address] [place] [address] Dr. Idania RoldanPLT265 103/umSalvbl312-573Afk [facility] HospitalComment on above: Performed By: #### BMP, LIPA, YVETTE, LIVER #### [facility] [address] [place] [address] Dr. Idania RoldanRBC4.49 106/ulNormal4.20-5.40The [facility] Hospitalment on above:Performed By: #### BMP, LIPA, YVETTE, LIVER #### [facility] [address] [place] [address] Dr. Idania RoldanWBC6.8 103/ulNormal4.0-11.0The [facility] HospitalComment on above: Performed By: #### BMP, LIPA, YVETTE, LIVER #### [facility] [address] [place] [address] Dr. Idania Iniguez URINE PROFILEon 67-49-1096Tljqpuyxl Ql (U)NegativeNormal NEGATIVEMedina HospitalComment on above:Performed By: #### PT, PTT #### [facility] [address] [place] [address] Dr. Idania RoldanClarity (U)CLEARNormalCLEARMedina HospitalComment on above: Performed By: #### PT, PTT #### [facility] [address] [address] [address] Idania Zelayalor (U)LT. YELLOWNormalYELLOWMedina HospitalComment on above:Performed By: #### PT, PTT #### [facility] [address] [place] [address] Dr. Idania Phelps micrscopic examination will be performed if indicated. NormalMedina HospitalComment on above:Performed By: #### PT, PTT #### [facility] [address] [place] [address] Dr. Idania RoldanGlucose Ql (U)NegativeNormalNEGATIVEMedina HospitalComment on above:Performed By: #### PT, PTT #### [facility] [address] [place] [address] Dr. Idania RoldanHemoglobin Ql (U)LARGEAbnormalNEGATIVEGrant Hospital on above:Performed By: #### PT, PTT #### [facility] [address] [place] [address] Dr. Idania RoldanKetones Ql (U)NegativeNormalNEGATIVEMedina HospitalComment on above:Performed By: #### PT, PTT #### [facility] [address] [place] [address] Dr. Idania RoldanLEUKOCYTESTRACEAbnormalNEGATIVEMedina HospitalComuniversity of mich[facility] health–[facility] on above:Performed By: #### PT, PTT #### [facility] [address] [place] [address] Dr. Idania RoldanNitrite Ql (U)NegativeNormalNEGATIVEMedina HospitalComment on above:Performed By: #### PT, PTT #### [facility] [address] [place] [address] Dr. Idania RoldanpH (U)6.0 [pH]Normal5-9The [facility] HospitalComment on above: Performed By: #### PT, PTT #### [facility] [address] [place] [address] Dr. Idania RoldanSPEC GRAVITY1.848Oesjwu8.005-<=1.025The [facility] HospitalComment on above:Performed By: #### PT, PTT #### [facility] [address] [place] [address] Dr. Idania Bee PROTEINNegativeNormalNEGATIVE/ TRACEThe [facility] Comment on above:Performed By: #### PT, PTT #### [facility] [address] [place] [address] Dr. Idania Ventura MICRO INDINDICATEDNormalThe [facility] HospitalComment on above: Performed By: #### PT, PTT #### [facility] [address] [place] [address] Dr. Idania Hancockbilinogen Qn (U)0.2 {Bryan'U}/dLNormal0.2 - 1.0The [facility] HospitalComment on above:Performed By: #### PT, PTT #### [facility] [address] [place] [address] Dr. Idania RoldanPROF CHEM 8 (BAS METB)on 20-54-3165Hnzhr gap [Moles/Vol]10.9 mmol/LNormalThe [facility] HospitalComment on above:Performed By: #### PT, PTT #### [facility] [address] [place] [address] Dr. Idania RoldanCalcium [Mass/Vol]8.9 mg/dLNormal8.5-10.1The [facility] Comment on above:Performed By: #### PT, PTT #### [facility] [address] [place] [address] Dr. Idania RoldanChloride [Moles/Vol]104 mmol/XXbcooc48-896Imf [facility] Comment on above:Performed By: #### PT, PTT #### [facility] [address] [address] [address] Idania RoldanCO2 [Moles/Vol]28.9 mmol/HYtndml47.0-32.0The [facility] Comment on above:Performed By: #### PT, PTT #### [facility] [address] [address] [address] Idania RoldanCreatinine [Mass/Vol]0.71 mg/dLNormal0.55-1.02The [facility] HospitalComment on above:Performed By: #### PT, PTT #### [facility] [address] [address] [address] Idania LarkinGFR-AF SLOVENIAN>60Normal>=60The [facility] HospitalComment on above:Performed By: #### PT, PTT #### [facility] [address] [place] [address] Dr. Idania LarkinGFR-NON AF SLOVENIAN>60Normal>=60The [facility] HospitalComment on above:Performed By: #### PT, PTT #### [facility] [address] [place] [address] Dr. Idania RoldanGlucose [Mass/Vol]88 mg/jCKiwphl89-139VznMedina Hospital Comment on above:Performed By: #### PT, PTT #### [facility] [address] [place] [address] Dr. Idania RoldanPotassium [Moles/Vol]3.8 mmol/LNormal3.5-5.1The [facility] Comment on above:Performed By: #### PT, PTT #### [facility] [address] [address] [address] Idania RoldanSodium [Moles/Vol]140 mmol/JMjgwcc460-369Dlk [facility] Comment on above:Performed By: #### PT, PTT #### [facility] [address] [address] [address] Idania RoldanUrea nitrogen [Mass/Vol]13.0 mg/dLNormal7.0-18.0The [facility] HospitalComment on above:Performed By: #### PT, PTT #### [facility] [address] [address] [address] Idania RoldanUrea nitrogen/Creatinine [Mass ratio]18.3 mg/mgNoSouthview Medical CenterComuniversity of mich[facility] health[facility] on above:Performed By: #### PT, PTT #### [facility] [address] [address] [address] Idania Mcintosh MICROSCOPIC ONLYon 34-83-5030HTUGLIVTFLVO SEENNormalNONE SEENMedina HospitalComuniversity of mich[facility] health–[facility] on above:Performed By: #### PT, PTT #### [facility] [address] [address] [address] Idania Kinney identified Cx Nom (U)NOT INDICATEDNoSouthview Medical CenterComuniversity of [facility] on above:Performed By: #### PT, PTT #### [facility] [address] [place] [address] Dr. Idania Marquez SEENNormalNONE SEENMedina HospitalComuniversity of [facility] on above:Performed By: #### PT, PTT #### [facility] [address] [address] [address] Idania Cohenystals LM Nom (Urine sed)NONE SEENNormalNONE SEENSelect Medical Specialty Hospital [facility] on above:Performed By: #### PT, PTT #### [facility] [address] [address] [address] Emerson ChangEpithelial cells LM Ql (Urine sed)FEWAbnormalNONE SEEN /RAREThe [facility] HospitalComuniversity of [facility] on above:Performed By: #### PT, PTT #### [facility] [address] [address] [address] Idania RoldanMUCOUSNONE SEENNormalNONE SEENMedina HospitalComuniversity of [facility] on above:Performed By: #### PT, PTT #### [facility] [address] [address] [address] Idania RoldanJysfpEWR21-24Uavnoolp9-8Mmp [facility] on above: Performed By: #### PT, PTT #### [facility] [address] [place], [place] [address] Dr. Idania RoldanWBC0-2AbnormalNONE SEENThe [facility] HospitalComment on above: Performed By: #### PT, PTT #### [facility] [id number] Idania RoldanXR ABD FLAT UP_PA Edna 13-23-7214XF ABD FLAT UP_PA CHEXAMINATION: XR ABD FLAT UP_PA CH HISTORY: Pain [...] Electronically authenticated by: RUSSELL DUFF Date: 2022-04-29 13:37[facility] HospitalUS KIDNEYS BLADDERon 58-14-6702UU KIDNEYS BLADDEREXAMINATION: US KIDNEYS BLADDER HISTORY: Kidney stone , left flank [...] Electronically authenticated by: RUSSELL DUFF Date: 2022-04-16 18:24[facility] LOWER EXTREMITY WO CONTRAST LEFTon 68-98-0133[place] LOWER EXTREMITY WO CONTRAST [facility] [place] Department of Radiology [address] [place] [phone] Patient Name: ELVI MOORE : 1980 Sex: F Age: Race: White Pt. Location: Patient Status: D Ordered Date: 03/24/2022 9:30:00 AM Completed Date: 04/07/2022 05:13 PM Requesting Provider: KEVIN LANE Attending Provider: KEVIN LANE Report Copy To: ARLETH ACHARYA Signs & Symptoms: Z96.659 Presence of unspecified artificial knee joint I10 History: [place] Comments: , left knee Exam: CT LOWER [...] arthroplasty. Electronically signed: Elvis Perez. Transcribed by: [email or web address], User Resident: Electronically Signed by: ELVIS PEREZ @ 04/12/2022 09:46 AMNormalThe [facility] HospitalComment on above:Order Comment: , left kneeC REACTIVE PROTEINon 89-55-8769HSB [Mass/Vol]2.2 mg/LNormal0.0-7.0The [facility] HospitalComment on above:Performed By: #### [id number] #### [address] [place] [address], USASEDIMENTATION RATEon 45-50-8243MDQ RATE30 mm/hrHigh0-20The [facility] HospitalComment on above:Performed By: #### 58569 #### [address] [place] [address], USAKNEE LEFT 1 OR 2 Son 98-46-3838LAVD LEFT 1 OR 2 [facility] Department of Radiology [address] [place] [phone] Patient Name: ELVI MOORE : 1980 [...] report. Electronically signed: Sathya Christianson. Transcribed by: [email or web address], User Resident: Electronically Signed by: SATHYA CHRISTIANSON @ 02/13/2022 10:48 [facility] CampusComment on above:Order Comment: LT KNEE REANNA Operative Reporton 62-39-0214Ovmgxopup ReportMR#: [id number] S [facility] Pt. Name: Elvi Moore Room #: 0C Discharge Date: Birthdate: 1980 OPERATIVE REPORT DATE OF SURGERY: 02/12/2022 SURGEON: Kvein Lane M.D. MEDIA TECHNICIAN: None. PREOPERATIVE DIAGNOSIS: Left total knee [...] Lane M.D. Date Trans: 02/12/2022 09:35 A/taylor DN_JN:[id number] cc: Arleth Acharya M.D. [address], [facility] Christine [facility] [id number] Arthur [facility] GLUCOSE LABon 52-60-4739Almujoi [Mass/Vol]96 mg/pYVfwrkp87-519Ido [facility] HospitalComment on above:Performed By: #### 09537 ####[facility] [place] [address], [facility] REACTIVE PROTEINon 56-34-7735TZJ [Mass/Vol]1.7 mg/LNormal0.0-7.0The [facility] HospitalComment on above:Performed By: #### 02596 #### [facility] [address] [place] [address], USASEDIMENTATION RATEon 65-97-3975OEG RATE18 mm/hrNormal0-20 The [facility] HospitalComment on above:Performed By: #### 41357 #### [facility] [address] [place] [address], USAKNEE LEFT 3 VWSon 14-16-2128JDRC LEFT 3 VWSUniAdena Regional Medical Center Department of Radiology [address] [place] [phone] Patient Name: ELVI MOORE : 1980 Sex: F Age: Race: White Pt. Location: 85 Patient Status: Ordered Date: 12/26/2021 1:45:00 PM Completed Date: 12/26/2021 01:50 PM Requesting Provider: JORDEN BRODY Attending Provider: Report Copy To: Signs & Symptoms: Z47.1 Aftercare following joint replacement surgery I10 History: [place] Comments: , , , Ordering Provider - [...] report. Electronically signed: Yvette Desai. Transcribed by: [email or web address], User Resident: CHRISTELLE ABDI Electronically Signed by: YVETTE DESAI @ 12/26/2021 04:27 PM I personally read this/these film(s) with this UK HealthcareComment on above:Order Comment: , , , Ordering Provider - JORDEN BRODY PRODUCE DEPARTMENT SUPERVISOR , KNEE LEFT 3 Son 63-21-5283TSAE LEFT 3 SUniAdena Regional Medical Center Department of Radiology [address] [place] [phone] Patient Name: ELVI MOORE : 1980 [...] changes. Electronically signed: Ezio Roberts. Transcribed by: [email or web address], User Resident: Electronically Signed by: EZIO ROBERTS @ 12/10/2021 08:39 AMNormalThe [facility] HospitalOperative Reporton [id number] ReportMR#: [id number] S [facility] Pt. Name: Elvi Moore Room #: 0C Discharge Date: Birthdate: 1980 OPERATIVE REPORT DATE OF SURGERY: 10/30/2021 SURGEON: Kevin Lane M.D. MEDIA TECHNICIAN: 1. MD Wales[place]. 2. LAVON Quinones. [...] arthrotomy was closed itself with #2 interrupted qjnqcj-pq-ylocx suture. The remainder of the incision was closed in a layered fashion. Sterile dressing was applied. At the conclusion of the case, all sponge and needle counts were correct. I was present for the critical portions of this case. Electronically Signed by: Kevin Lane M.D. 10/30/2021 07:[address] M.D. Date Dict: 10/30/2021/11:00 Christine/Kevin Lane M.D. Date Trans: 10/30/2021 12:34 P/mmo DN_JN:[id number] cc: Arleth Acharya M.D. [facility] [address] [facility] [place] [address] Nasir Thacker, DO [address] [facility] [address] [facility] [address]XfiehkDhjOhioHealth Grant Medical CenterPOC GLUCOSE LABon 40-72-4356Alcxput [Mass/Vol]88 mg/hCAfswmt21-164Qud [facility] HospitalComment on above:Performed By: #### 23145 ####[facility] [place] [address], USAPORTABLE KNEE LEFT 2 VWSon 53-02-5054AGOROHDQ KNEE LEFT 2 SUniversOhioHealth Riverside Methodist Hospital Department of Radiology [address] [place] [phone] Patient Name: ELVI MOORE : [...] complication Electronically signed: Yvette Andrade. Transcribed by: [email or web address], User Resident: Electronically Signed by: YVETTE ANDRADE @ 10/30/2021 11:20 AMNormalThe [facility] HospitalComment on above:Order Comment: Hardware Evaluation, Postop PACU films for L knee s/p TKA. AP and lateral please*MRSA/MSSA DNA NASAL on 10-07-2021*MRSA/MSSA DNA NASALClinical Report: (D) Specimen: NASAL SWAB Collected: 10/07/2021 10:51 Status: Final Last Updated: 10/07/2021 15:44 MSSA DNA (Final) Negative MRSA DNA (Final) NegativeNoOhioHealth Grant Medical CenterComment on above:Performed By: #### [id number] ####[facility] [place] [address], [facility] CENTERAPTOasis Behavioral Health Hospital 37-38-3457uVOA Coag (Bld) [Time]32.2 eIjwouz29.0-35.0The [facility] HospitalComment on above:Result Comment: ALL RESULTS MUST BE INTERPRETED WITH RESPECT TO BLOOD DRAWING ARTIFACT OR DILUTION ERROR OF ANTICOAGULANT AT THE TIME OF SAMPLING. THE APTT SHOULD NOT BE USED TO MONITOR UNFRACTIONATED HEPARIN THERAPY, THIS LABORATORY NO LONGER HAS AN ESTABLISHED THERAPEUTIC RANGE BASED ON THE APTT. IT IS RECOMMENDED THAT THE UFH - HEPARIN ASSAY (ANTI-XA ACTIVITY) BE USED FOR THIS PURPOSE.Performed By: #### 33421 #### [facility] [address] [place] [address], [facility]ATRIC CENTERBASIC METABOLIC PANELon 09-14-1883Qcaqhrm [Mass/Vol]9.2 mg/dLNormal8.6-10.3The [facility] HospitalComment on above: Performed By: #### 92563 #### [facility] [address] [place] [address], USAChloride [Moles/Vol]106 mmol/HSohfxo86-367Pcs [facility] HospitalComment on above:Performed By: #### 86811 #### [facility] [address] [facility] [place] [address], USACO2 [Moles/Vol]28 mmol/HLuraxg55-99Von [facility] HospitalComment on above:Performed By: #### 18613 #### [facility] [address] [facility] [place] [address], USACreatinine [Mass/Vol]0.77 mg/dLNormal0.60-1.20The [facility] HospitalComment on above:Performed By: #### 41593 #### [facility] [address] [facility] [place] [address], USAGFR/1.73 sq M.predicted among blacks MDRD (S/P/Bld) [Vol rate/Area]mL/min/{1.73_m2}Normal>60The [facility] Comment on above:Performed By: #### 32893 #### [facility] [address] [facility] [place] [address], USAGFR/1.73 sq M.predicted among non-blacks MDRD (S/P/Bld) [Vol rate/Area]mL/min/{1.73_m2}Normal>60The [facility] Comment on above:Performed By: #### 52314 #### [facility] [address] [place] [address], USAGlucose [Mass/Vol]84 mg/nSPiwwyu13-062Ptq [facility] HospitalComment on above:Performed By: #### 99273 #### [facility] [address] [facility] [address], USAPotassium [Moles/Vol]4.4 mmol/LNormal3.5-5.1The [facility] HospitalComment on above:Performed By: #### 14686 #### [facility] [address] [facility] [address] [address], USASodium [Moles/Vol]142 mmol/SUitlea903-666Ppb [facility] HospitalComment on above:Performed By: #### 53568 #### [facility] [address] [facility] [place] [address], USAUrea nitrogen [Mass/Vol]12 mg/dLNormal7-25The [facility] HospitalComment on above:Performed By: #### 42699 #### [facility] [address] [facility] [place] [address], [facility] CH[facility]EN'S PSYCHIATRIC CENTERCBC W/DIFFon 30-71-9644LVF IMM GRANS0.0 10*3/uLNormal 0.0-0.2The [facility] HospitalComment on above:Performed By: #### 50925 #### [facility] [address] [facility] [place] [address], USAABS NEUTROPHILS4.7 10*3/uLNormal1.6-7.6The [facility] HospitalComment on above:Performed By: #### 43988 #### [facility] [address] [facility] [place] [address], USABasophils (Bld) [#/Vol]0.0 10*3/uLNormal0.0-0.2The [facility] HospitalComment on above:Performed By: #### 55257 #### [facility] [address] [facility] [place] [address], [facility] PSYCHIATRIC CENTERBasophils/100 WBC (Bld)0.3 %Normal0.0-1.0The [facility] HospitalComment on above:Performed By: #### 34361 #### [facility] [address] [place] [address], USAEosinophils (Bld) [#/Vol]0.2 10*3/uLNormal0.0-0.5The [facility] HospitalComment on above:Performed By: #### 59746 #### [facility] [address] [facility] [place] [address], USAEosinophils/100 WBC (Bld)1.9 %Normal0.0-6.0The [facility] HospitalComment on above:Performed By: #### 62478 #### [facility] [address] [facility] [place] [address], USAErythrocyte distribution width (RBC) [Ratio]14.0 %Normal 11.5-15.0The [facility] HospitalComment on above:Performed By: #### 15194 #### [facility] [address] [place] [address], USAHematocrit (Bld) [Volume fraction]37.1 %Ntqyps34.0-45.0The [facility] HospitalComment on above:Performed By: #### 75854 #### [facility] [address] [place] [address], USAHemoglobin (Bld) [Mass/Vol]11.3 g/dLLow12.0-15.0The [facility] HospitalComment on above:Performed By: #### 19840 #### [facility] [address] [facility] [place] [address], USAIMMATURE GRANS0.1 %Normal0.0-1.0The [facility] HospitalComment on above:Performed By: #### 97562 #### [facility] [address] [facility] [place] [address], USALymphocytes (Bld) [#/Vol]2.5 10*3/uLNormal1.2-4.0The [facility] HospitalComment on above:Performed By: #### 23789 #### [facility] [address] [place] [address], USALymphocytes/100 WBC (Bld)31.6 %Elvvad60.0-45.0The [facility] HospitalComment on above:Performed By: #### 69739 #### [facility] [address] [place] [address], [facility] CH[facility]EN'S PSYCHIATRIC CENTERMCH (RBC) [Entitic mass]25.5 pgLow27.0-33.0The [facility] HospitalComment on above:Performed By: #### 97090 #### [facility] [address] [place] [address], [facility]EN[facility] PSYCHIATRIC CENTERMCHC (RBC) [Mass/Vol]30.5 g/dLLow32.0-35.0The [facility] HospitalComment on above:Performed By: #### 34071 #### [facility] [address] [place] [address], [facility] CH[facility]EN'S PSYCHIATRIC CENTERMCV (RBC) [Entitic vol]83.7 lADpnujg29.0-98.0The [facility] HospitalComment on above:Performed By: #### 94491 #### [facility] [address] [place] [address], USAMonocytes (Bld) [#/Vol]0.5 10*3/uLNormal0.1-1.0The [facility] HospitalComment on above:Performed By: #### 02803 #### [facility] [address] [place] [address], USAMONOS6.0 %Normal5.0-12.0The [facility] HospitalComment on above:Performed By: #### 47565 #### [facility] [address] [place] [address], USANeutrophils/100 WBC (Bld)60.1 %Cdrzdf84.0-72.0The [facility] HospitalComment on above:Performed By: #### 01773 #### [facility] [address] [place] [address], USANucleated RBC/100 WBC (Bld) [Ratio]0 %Normal0-0The [facility] HospitalComment on above:Performed By: #### 71957 #### [facility] [address] [place] [address], USAPLAT HPR143 10*3/pHLhhdqz816-259Pqo [facility] HospitalComment on above:Performed By: #### 29664 #### [facility] [address] [place] [address], [facility]EN'S PSYCHIATRIC CENTERRBC (Bld) [#/Vol]4.43 10*6/uLNormal3.80-5.00The [facility] HospitalComment on above:Performed By: #### 78312 #### [facility] [address] [place] [address], [facility] CH[facility]DREN'S PSYCHIATRIC CENTERWBC (Bld) [#/Vol]7.85 10*3/uLNormal4.00-10.60The [facility] HospitalComment on above:Performed By: #### 18994 #### [facility] [address] [place] [address], [facility]YCHIATRIC CENTERPROTHROMBIN TIMEon 03-62-9538MTW Coag (PPP) [Relative time] 0.94 {INR}Normal0.91-1.16The [facility] HospitalComment on above:Result Comment: ACCCP RECOMMENDED INR FOR WARFARIN THERAPY ------- CONDITION INR PROPHYLAXIS OF VENOUS THROMBOSIS 2-3 (HIGH-RISK SURGERY) TREATMENT OF VENOUS THROMBOSIS 2-3 TREATMENT OF PULMONARY EMBOLISM 2-3 PREVENTION OF SYSTEMIC EMBOLISM: 2-3 ACUTE MYOCARDIAL INFARCTION TISSUE HEART VALVES VALVULAR HEART DISEASE ATRIAL FIBRILLATION RECURRENT SYSTEMIC EMBOLISM MECHANICAL HEART VALVE 2.5-3.5 FROM: ORAL ANTICOAGULANTS. MECHANISM OF ACTION, CLINICAL EFFECTIVENESS, AND OPTIMAL THERAPEUTIC RANGE. CHEST 1995;108:231S-246S.Performed By: #### [id number] #### [facility] [address] [facility] [place] [address], [facility] CENTERPT Coag (PPP) [Time]12.6 xCxhbmi48.3-14.8The [facility] Clinic Euclid HospitalComment on above:Result Comment: ALL RESULTS MUST BE INTERPRETED WITH RESPECT TO BLOOD DRAWING ARTIFACT OR DILUTION ERROR OF ANTICOAGULANT AT THE TIME OF SAMPLING.Performed By: #### [id number] #### [facility] [address] [facility] [place] [address], USATYPE AND SCREENon [id number] INTERPRETATIONONoOhioHealth Grant Medical CenterComment on above:Performed By: #### [id number] #### [facility] [address] [facility] [place] [address], [facility] CENTERRH INTERPRETATIONPositiveNoOhioHealth Grant Medical CenterComment on above:Performed By: #### [id number] #### [facility] [address] [facility] [place] [address], [facility]*MRSA/MSSA DNA NASALon 08-12-2021*MRSA/MSSA DNA NASAL Clinical Report: (D) Specimen: NASAL SWAB Collected: 08/12/2021 10:14 Status: Final Last Updated: 08/12/2021 18:58 MSSA DNA (Final) Negative MRSA DNA (Final) NegativeSelect Medical [facility] Clinic Rehabilitation Hospital, AvonComment on above:Performed By: #### [id number] #### [facility] [address] [facility]. [place] [id number], [facility] PSYCHIATRIC CENTERCBC W/DIFFon [id number] IMM GRANS0.0 10*3/uLNormal 0.0-0.2The [facility] Euclid HospitalComment on above:Performed By: #### [id number] #### [facility] [address] [facility] [place] [address], USAABS NEUTROPHILS3.7 10*3/uLNormal1.6-7.6The [facility] Euclid HospitalComment on above:Performed By: #### [id number] #### [facility] [address] [place] [address], USABasophils (Bld) [#/Vol]0.0 10*3/uLNormal0.0-0.2The [facility] Euclid HospitalComment on above:Performed By: #### [id number] #### [facility] [address] [place] [address], [facility]AT[facility] CENTERBasophils/100 WBC (Bld)0.3 %Normal0.0-1.0The [facility] Euclid HospitalComment on above:Performed By: #### [id number] #### [facility] [address] [facility] [place] [address], USAEosinophils (Bld) [#/Vol]0.2 10*3/uLNormal0.0-0.5The [facility] Euclid HospitalComment on above:Performed By: #### [id number] #### [facility] [address] [facility] [place] [address], USAEosinophils/100 WBC (Bld)2.9 %Normal0.0-6.0The [facility] Euclid HospitalComment on above:Performed By: #### [id number] #### [facility] [address] [facility] [place] [address], USAErythrocyte distribution width (RBC) [Ratio]14.0 %Normal 11.5-15.0The [facility] Euclid HospitalComment on above:Performed By: #### [id number] #### [facility] [address] [facility] [place] [address], USAHematocrit (Bld) [Volume fraction]37.0 %Nzodmf18.0-45.0The [facility] Euclid HospitalComment on above:Performed By: #### 80053 #### [facility] [address] [place] [address], USAHemoglobin (Bld) [Mass/Vol]11.6 g/dLLow12.0-15.0The [facility] Euclid HospitalComment on above:Performed By: #### [id number] #### [facility] [address] [facility] [place] [address], USAIMMATURE GRANS0.3 %Normal0.0-1.0The [facility] Euclid HospitalComment on above:Performed By: #### 65574 #### [facility] [address] [facility] [place] [address], USALymphocytes (Bld) [#/Vol]2.1 10*3/uLNormal1.2-4.0The [facility]ucl[facility] HospitalComment on above:Performed By: #### [id number] #### [facility] [address] [place] [place] [address], USALymphocytes/100 WBC (Bld)32.5 %Kddsmz63.0-45.0The [facility] Euclid HospitalComment on above:Performed By: #### 54801 #### [facility] [address] [facility] [place] [address], USAMCH (RBC) [Entitic mass]26.8 pgLow27.0-33.0The [facility] Euclid HospitalComment on above:Performed By: #### 30006 #### [facility] [address] [facility] [place] [address], USAMCHC (RBC) [Mass/Vol]31.4 g/dLLow32.0-35.0The [facility]ucl[facility] HospitalComment on above:Performed By: #### [id number] #### [facility] [address] [place] [address], USAMCV (RBC) [Entitic vol]85.5 vOQnxhsr75.0-98.0The [facility]ucl[facility] HospitalComment on above:Performed By: #### 67828 #### [facility] [address] [place] [address], USAMonocytes (Bld) [#/Vol]0.5 10*3/uLNormal0.1-1.0The [facility]ucl[facility] HospitalComment on above:Performed By: #### 05352 #### [facility] [address] [place] [address], USAMONOS6.9 %Normal5.0-12.0The [facility] Euclid HospitalComment on above:Performed By: #### [id number] #### [facility] [address] [place] [address], USANeutrophils/100 WBC (Bld)57.1 %Koplyn52.0-72.0The [facility] Euclid HospitalComment on above:Performed By: #### 50904 #### [facility] [address] [place] [address], USANucleated RBC/100 WBC (Bld) [Ratio]0 %Normal0-0The [facility] Eucl[facility] HospitalComment on above:Performed By: #### 81214 #### [facility] [address] [place] [address], USAPLAT BRQ813 10*3/hGYyoadn691-805Tcn [facility] HospitalComment on above:Performed By: #### 97765 #### [facility] [address] [place] [address], USARBC (Bld) [#/Vol]4.33 10*6/uLNormal3.80-5.00The [facility] HospitalComment on above:Performed By: #### 66461 #### [facility] [address] [facility] [place] [address], USAWBC (Bld) [#/Vol]6.55 10*3/uLNormal4.00-10.60The [facility] HospitalComment on above:Performed By: #### [id number] #### [facility] [address] [place] [address], USAHEMOGLOBIN A1Con 22-83-5959Vokoypq [Moles/Vol]103 mmol/L NormalThe Cleveland Clinic Euclid HospitalComment on above:Performed By: #### 16086 #### [facility] [address] [facility] [place] [address], MHQTzI8x (Bld) [Mass fraction]5.2 %Normal4.0-6.0The [facility] Euclid HospitalComment on above:Performed By: #### [id number] #### [facility] [address] [facility] [place] [address], USAKNEE LEFT 3 Son 23-64-9922SEOD LEFT 3 SUniAden[facility] Department of Radiology [address] [place] [id number] Patient Name: ELVI MOORE : 1980 [...] abnormality. Small knee joint effusion. Approved by:Jody Pascal10/12/2020 9:23 AM. I, Jah Juarez,have reviewed the image(s) and agree with the findings in this report. Electronically signed: Jah Juarez. Transcribed by: [id number], User Resident: JODY KEITH Electronically Signed by: JAH JUAREZ @ 08/12/2021 03:46 PM I personally read this/these film(s) with this UK HealthcareComment on above:Order Comment: evaluateOtolaryngology Office/Clinic Noteon [id number] Office/Clinic NoteChief Complaint Patient states I am having a follow up from ear surgery.'History of Present IllnessThe patient is status post removal of a retained foreign body and myringoplasty about 2 months ago.Her hearing is finally improved she's not having any further pain or drainage.Physical Exam Vitals & Measurements BP: 131/90 Ears: The left ear was visualized under the operating microscope. The s ite of the foreign body is now healed [...] No qualifying data available.Electronically signed by Zhane aTmez MD 12/30/17 16:02 TMercer County Community HospitalOtolaryngology Office/Clinic Noteon [id number] Office/Clinic NoteChief Complaint post-opHistory of Present Illness Elvi is [...] is intact without evidence of perforation. Neck: S ignificant pain to palpation of the left TMJ laterally. Additional Vitals BP Position/Location: Sitting, Right arm Peripheral Pulse Rate: 83 bpmAssessment/Plan 1. Postop check Recommendation: I'm giving the patient a TMJ handout as I think this is the major cause of her otalgia. We will see her in f ollow-up in 6 weeks at which time I would like to get another hearing test. Should the left ear begin draining more significantly I've asked her to call for follow-up at that time.Problem List/Past Medical History Ongoing Acid reflux Historical No qualifying dataProcedure/Surgical History ANESTH CSHYSTERECTOMY, APPENDECTOMY, Gallbladder removal, Gastric Bypass, Mastoid Surgery.Medications cephalexin Cipro HC 0.2%-1% otic suspension, 3 drops, Ear-Both, BIDAllergies Demerol HCl (Rash) Toradol (Rash)Social History Alcohol Never Tobacco Former smokerFamily History Breast cancer: Sibling. Diabetes mellitus: Father. Other: Father.Diagnostic Results No qualifying data available. No qualifying data available. No qualifying data available. No qualifying data available.Electronically signed by Zhane Tamez MD 11/18/17 16:31 [facility] Patient seen for dispense of bilateral swim plugs. Both plugs display good fit in the ears, and patient confirmed comfort of fit. Proper insertion/removal was practiced successfully. Plan: Return if issues arise regarding swim plugs. N/C, swim plugs paid at last appointment.Electronically signed by_ Rima Muñoz 11/18/17 16:04 [facility] HospitalOtolaryngology Office/Clinic Noteon [id number] Office/Clinic NotePatient seen for bilateral earmold impressions for swim plugs. Earmold impressions made without incident and otoscopy prior to and following impressions was unremarkable. Patient chose purple, pink, and green swirl color for plugs. Plan: Return in 3 weeks for dispense, prior to follow-up appointment with Dr. Zhane Tamez. $70.Electronically signed by _Kyara Rima Roque 10/28/17 16:31 [facility] Otolaryngology Office/Clinic NoteChief Complaint post-opHistory of Present Illness Snoozed 2 weeks status post removal of a retainedtube/foreign body in her left TM with myringoplasty. She still does have some some fullness and occa sional discomfort in her hearing is still somewhat [...] well before using, # 5 mL, 0 Refill(s),10/29/17 15:38:00 EST Follow-up in 3 weeks.Problem List/Past Medical History Ongoing Acid reflux Historical No qualifying dataProcedure/Surgical History ANESTH CS HYSTERECTOMY, APPENDECTOMY, Gallbladder removal, Gastric Bypass, Mastoid Surgery.Medications cephalexin Cipro HC 0.2%-1% otic suspension, 3 drops, Ear-Both, BID Tobradex 0.3%-0.1% ophthalmic suspension, See InstructionsAllergies DemerolHCl (Rash) Toradol (Rash)Social History Alcohol Never Tobacco Former smokerFamily History Breast cancer: Sibling. Diabetes mellitus: Father. Other: Father.Diagnostic Results No qualifying data available. No qualifying data available. No qualifying data available. No qualifying data available.Electronically signed by Zhane Tamez MD 10/28/17 15:41 [facility] HospitalOtolaryngology Office/Clinic Noteon [id number] Office/Clinic NoteChief Complaint left ear painHistory of Present Illness Patient notes that the left ear is somewhatimproved still uncomfortable and still draining.Physical Exam Vitals [...] Historical No qualifying dataProcedure/Surgical History ANESTH CS HYST ERECTOMY, APPENDECTOMY, Gallbladder removal, Gastric Bypass, Mastoid Surgery.Medications cephalexinCipro HC 0.2%-1% otic suspension, 3 drops, Ear- Both, BIDAllergies Demerol HCl (Rash) Toradol (Rash)Social History Alcohol Never Tobacco Former smokerFamily History Breast cancer: Sibling. Diabetes mellitus: Father. Other: Father.Diagnostic Results No qualifying data available. No qualifying data available. No qualifying data available. No qualifying data available.Electronically signed by Zhane Tamez MD 09/16/17 16:06 [facility] HospitalOtolaryngology Consultationon 04-20-2017 Otolaryngology ConsultationChief Complaint Left ear bleedingReason for Consultation L hearing loss /otorrheaHistory of PresentIllness Patient is a 36-year-old female who about 6 weeks ago began having some drainage from her le ft ear for an episode of severe emesis.. This drainage has been bloody it is intermittent and is occasionally associated with pain but is constantly associated with hearing loss. She had similar episodes in the past with a ruptured tympanic membrane on the left but the last episode was more than 3 y ears ago. She had a small episode of vertigo when the initial episode of drainage began but has hadnone since. There Has been no change in her vision fever or chills.Review of Systems General Adult ROS Fatigue: No Appetite change: Yes Weakness: NoPhysical Exam Vitals & Measurements RR: 16 BP: 128/101 WT: 101.7 kg General: [Alert and oriented, well nourished, no acute distress]. Eye: [PERRL, EOMI, normal conjunctiva]. HENT: [Normocephalic. Ears canals are clear except for a clot on the leftmedial inferior canal. Right tympanic membrane extremely scarred [...] respiration]. Heart: [Normal rate, regular rhythm, no m urmur, gallop or edema]. Skin: [Skin is warm, dry and pink, no rashes or lesions]. Neurologic: [Awake, alert, and oriented X3, CN II-XII intact]. Psychiatric: [Cooperative, appropriate mood and affect]. Additional Vitals BP Position/Location: Sitting, Left arm Peripheral Pulse Rate: 83 bpmAssessment /Plan 1. Otorrhea, left ear 2. Hearing loss [...] signed by Zhane Tamez MD 04/20/17 16:51 [facility] Vital Signs Date TimeVital SignValuePerforming XnszbvifqWhyvrftq82-64-0494 10:17-0500Body kamtjo196.6 cmMattsara PENNINGTON Work Phone: [facility] KirkwoodBrpthtkzzs82-29-1119 10:17-0500Body mass index (BMI) [Ratio]25.82 kg/e8Yrtnlxedileep PENNINGTON Work Phone: [facility] springfieldPqkmlmlstr63-51-1063 10:17-0500Body hoypae50.58 kgMattsara PENNINGTON Work Phone: [facility] springfieldTdwgsowhcj32-14-6332 16:20-0400Body mass index (BMI) [Ratio]26.75 kg/g1Zcwac Tano Red-rabbit Work Phone: [facility] springfieldCghwkyudjy07-56-2751 16:20-0400Body velrxx07.47 kgCorey Tano DO Work Phone: [facility] springfieldUhiwhcnbai39-07-8300 16:20-0400Diastolic blood uynfyure37 mm[Hg]Eduardo Tano DO Work Phone: [facility] springfieldOfhxrvrfck80-95-2178 16:20-0400Systolic blood bcpupigb417 mm[Hg]Eduardo Tano Red-rabbit Work Phone: [facility] springfieldBirzsybrbv10-44-1733 16:03-0400Blood Pressure LocationJENNPACIFIC [facility]05-28-2024 16:03-0400Body uivkhfthxvr78.88 [degF]ELIZABETH CHOI [facility]05-28-2024 16:03-0400Diastolic blood ipxumhhj66 mm[Hg]ELIZABETH CHOI [facility]05-28-2024 16:03-0400Heart rate87 /minJENNIFER STEPH [facility]05-28-2024 16:03-0400Respiratory rate16 /minJENNIFER STEPH [facility]05-28-2024 16:03-0400Systolic blood zinpqajv955 mm[Hg]ELIZABETH CHOI [facility]03-28-2024 18:12-0400Body qqvaty799.64 cmMD Arleth Hoy Work Phone: [phone] [place], [place] 3234003-28-2024 18:12-0400 Body mass index (BMI) [Ratio]25.6 kg/m2MD Arleth Hoy Work Phone: [facility]03-28-2024 18:12-0400 Body hkjagxfnlur41.2 [degF]MD Arleth Acharya Work Phone: [facility]03-28-2024 18:12-0400 Body akzhdz18 kgMD Arleth Hoy Work Phone: [facility]03-28-2024 18:12-0400 Heart rate93 /minMD Arleth Hoy Work Phone: [facility]03-28-2024 18:12-0400 Respiratory rate16 /minMD Arleth Hoy Work Phone: [facility]03-28-2024 18:12-0400 SaO2% (BldA) [Mass fraction]99 %MD Arleth Acharya Work Phone: [phone] [place], [place] 3234012-04-2023 12:04-0500 Blood Pressure LocationPatrictolu Atari [facility]12-04-2023 12:04-0500Diastolic blood oadoqdpf05 mm[Hg]Diana Atari [facility]12-04-2023 12:04-0500Heart rate64 /minPaCorsair [facility]12-04-2023 12:04-0500Respiratory rate16 /minPaCorsair [facility]12-04-2023 12:04-0500Systolic blood wrflevta278 mm[Hg]Diana HAWKINS [facility]08-18-2023 11:12-0400Body ymaxyuzlfnw46 [degF]MD Arleth Acharya Work Phone: [facility]08-18-2023 11:12-0400 Body .76 kgMD Arleth Acharya Work Phone: [facility]08-18-2023 11:12-0400 Diastolic blood hwbtljib38 mm[Hg]MD Arleth Acharya Work Phone: [facility]08-18-2023 11:12-0400 Heart rate88 /minMD Arlteh Acharya Work Phone: [facility]08-18-2023 11:12-0400 Respiratory rate16 /minMD Arleth Acharya Work Phone: [facility]08-18-2023 11:12-0400 SaO2% (BldA) [Mass fraction]98 %MD Arleth Acharya Work Phone: [facility]08-18-2023 11:12-0400 Systolic blood aiqnemgg398 mm[Hg]MD Arleth Acharya Work Phone: [facility]08-18-2023 11:00-0400 Body pveoai394.64 cmMD Arleth Acharya Work Phone: [facility]09-19-2022 09:25-0400 Blood Pressure LocationPamorales HAWKINS [facility]09-19-2022 09:25-0400Diastolic blood pqkofcni16 mm[Hg]Diana HAWKINS [facility]09-19-2022 09:25-0400Heart rate84 /minPaCorsair [facility]09-19-2022 09:25-0400Respiratory rate16 /minPaEmiSense Technologiestolu HAWKINS [facility]09-19-2022 09:25-0400Systolic blood mm[Hg]Diana HAWKINS [facility] Encounters Encounter DateEncounter TypeCare ProviderFacilityStart: 08-14-2025 End: 20-95-2831Bgdhpm flowsBhavya PENNINGTON Work Phone: [facility]icsStart: 08-14-2025 End: 95-82-7425Syhgmb Abi PENNINGTON Work Phone: [facility] OrthopaedicsStart: 08-14-2025 End: 17-75-9775Bqzvdi outpatient new 30 minutesMattsara PENNINGTON Work Phone: [facility] OrthopaedicsComment on above:Acute pain of right knee (Primary Dx); Internal derangement of right kneeStart: 08-12-2025 End: 89-92-5575Dnewvmmxl department patient visitARLETH [facility] Daytontart: 62-66-2403hxmsvaulqbVFOWAQMercy Health – The Jewish Hospitaltart: 05-07-2025 End: 18-82-4516Ulhpaszmp department patient visitARLETH PLUMMERKettering Health Washington Townshiptart: 05-04-2025 End: 94-83-8689xbdnfngykaZssdshv M [place] [facility] Work Phone: Start: 05-04-2025 End: 73-31-7962Mcuontct ReferredArleth Phillips MD-LAB [facility] Start: 95-13-1336jxcctxhycaGOBYNRSamaritan North Health Centertart: 03-19-2025 End: 13-36-4025Mspvfjj encounter procedureCorey Tano DO Work Phone: [facility] Work Phone: Start: 03-19-2025 End: 15-04-2115Ehxcdirs preventive med est patient 40-64yrsCorey Tano DO Work Phone: [facility] BCP OBComment on above:Well woman exam with routine gynecological exam; Breast cancer screening by mammogramStart: 03-19-2025 End: 91-82-4152epyxuxegrfXXRWA FAZIONot AvailableStart: 03-19-2025 End: 46-32-4394Jbqbjh flowsheetCorey Tano DO Work Phone: [facility] BCP OBStart: 03-19-2025 End: 43-56-0223Idnfqu flowsheetCorey Tano DO Work Phone: [facility] BCP OBStart: 03-19-2025 End: 94-21-6202Jdgmicrmt Result EncounterCorey Tano DO Work Phone: [facility] External Department UnsolicitedStart: 01-26-2025 ambulatoryKettering Health Main Campustart: 01-11-2025 End: 82-70-6500Cqzkufdxnj and management of inpatientDOBRE Phillips [facility] Daytontart: 12-25-2024 End: 55-60-8397cqshzqpmpgRNDTEM SHENHarrison Community Hospitaltart: 12-08-2024 End: 73-19-9542Bcwadaxoi department patient visitARLETH LongoriaSuburban Medical Centertart: 12-05-2024 End: 57-21-5361wjmhqdtheiHERAAXIPW [facility] Start: 79-91-7597edvflxqmmiZOBUTOQ [facility] Start: 07-17-2024 End: 32-67-1846qnhrptevzpLQHJWGIUC Healthtart: 05-01-2024 End: 95-20-6927arajollwziCMVROOCSelect Medical [facility] Hospital, Beachwoodtart: 05-01-2024 End: 79-15-1686Aivnrucsbx hospital visit by physicianBatavia [facility] Cat Scan [facility] CT ScanComment on above:Pleomorphic adenoma of parotid glandStart: 03-22-2024 End: 81-63-8410tfjbuazbafSI Arleth Phillips Baltazar Work Phone: [facility] Work Phone: Start: 03-22-2024 End: 92-92-9707Pocqoyea ReferredMD Arleth Baltazar Work Phone: [facility]-LAB Path Spec [facility] HospStart: 03-07-2024 End: 81-55-5928tyrjubmmmbLB-C ELIZABETH CHOIFacility:EU BellevueStart: 03-07-2024 End: 12-20-8621Jgffeec encounter procedureJENNDAVION CHOI [facility] Monique start: 01-06-2024 End: 29-89-2662ouztugdtoxGP Arleth M Hoy Work Phone: [facility] Work Phone: Start: 01-06-2024 End: 45-60-4514Ymgniki encounter procedureMD Arleth Hoy Work Phone: [facility] Work Phone: Start: 10-12-2023 End: 05-79-8831Ongzobd encounter procedurePatrick R Atari [facility] Start: 09-13-2023 End: 20-38-5137Pzclqod encounter procedurePatrick R Atari [facility] start: 05-28-2023 End: 37-26-0491ldqckfceakXF Arleth M Hoy Work Phone: [facility] Work Phone: Start: 05-28-2023 End: 37-57-4291Dxaagfoacw RecurringMD Arleth Hoy Work Phone: [facility] Work Phone: Start: 01-25-2023 End: 37-23-9153fvcucxqcpaRXZARRI D KATKOFacility:M2Lucyf: 01-21-2023 End: 72-09-1990jujydadnscLT ARLETH HOY .Facility:M8Npdio: 01-04-2023 End: 71-26-5508Rnottuh encounter procedurePatrick R Atari [facility] start: 29-01-2789ifuplxfwgyTC ARLETH HOY .Facility:H1 Start: 10-06-2022 End: 11-34-7592ltvskskpflXP ARLETH HOY .Facility:F9Buoou: 09-30-2022 End: 37-77-7999hkyagzhepzQA ARLETH HOY .Facility:X4Qdgrq: 09-21-2022 End: 15-93-1927shiislscdpRD ARLETH HOY .Facility:P9Ayspt: 31-45-2102Cazbatsye for preprocedural laboratory examinationDR DIANAESTELLA HAWKINS .[facility] Start: 08-27-2022 End: 94-94-2829landyzgwhkTR DIANA HAWKINS .Facility:H9Cqypl: 08-24-2022 End: 18-74-2463rtoqshecepRM DIANA HAWKINS .Facility:P2Edlsf: 08-24-2022 End: 27-13-2647Hoqozgomn for preprocedural laboratory examinationDR DIANA HAWKINS .Facility:S1Sauqy: 08-21-2022 End: 48-90-4849vqfsdgqbtsEJ DIANA HAWKINS .Facility:B1Qmdxs: 08-19-2022 End: 04-30-7718hrapaqtkozBW DIANA HAWKINS .Facility:U0Boqpy: 07-23-2022 End: 10-17-2145fvljhpionfZU DIANA HAWKINS .Facility:K9Wgjry: 07-20-2022 End: 32-97-7270jdlmqrsesiKN DIANA HAWKINS .Facility:W1Leacp: 07-10-2022 End: 34-45-5771cfxcxikproQV DIANA HAWKINS .Facility:J6Bacbh: 06-29-2022 End: 24-11-5939Erwlxum encounter procedurePatrictolu HAWKINS [facility] start: 65-72-8442tvxnawgatxWxncfr GehlingFacility:[facility] Start: 06-09-2022 End: 56-38-4232qsjhusjykwBmxdlo GehlingFacility:[facility]ENTERtart: 06-03-2022 End: 95-55-5747Peloehypa department patient visitDOUGLAS HOYFacility:[facility]ENTERtart: 06-01-2022 End: 23-41-8910Msnrviqspf and management of inpatientDaniel GehlingFacility:[facility] Start: 05-26-2022 End: 01-50-6657laihpakqraIpaqmr GehlingFacility:WYMCStart: 05-26-2022 End: 66-98-7858Jlwgaycnc for preprocedural laboratory examinationDaniel Gehling Facility:UTMCStart: 68-00-7407dmjrufbgdgACEDRP CRAMERFacility:B6Tfmbd: 05-01-2022 End: 93-44-0085ncggxwiykvTFEUYF CRAMERFacility:W6Jqucf: 04-29-2022 End: 35-63-5122wmyrxhnvapBHBBVD LONI .Facility:L1Wtntz: 04-16-2022 End: 01-80-1673wlcbfoirroEQ ARLETH ACHARYA .Facility:V8Soyep: 04-07-2022 End: 50-37-2923yqfwgvjiwsVhmsgd GehlingFacility:UTMCStart: 03-24-2022 End: 91-15-8289buejoxxsokALNAUBKH SELFFacility:UTMCStart: 02-12-2022 End: 45-32-7628katnsdvjjgLgnjdp GehlingFacility:UTMCStart: 01-09-2022 End: 69-18-5722cstudiulveGTUSOXJT SELFFacility:UTMCStart: 12-26-2021 End: 01-77-4848zxxaigwoqrUFTGUJED SELFFacility:UTMCStart: 12-09-2021 End: 27-18-3344cjyumlkfjfYLKYNHFT SELFFacility:UTMCStart: 10-30-2021 End: 99-19-2585jrxxuyjewqNvpabx GehlingFacility:UTMCStart: 10-11-2021 End: 14-05-9347fgagklssozWhgzyy GehlingFacility:UTMCStart: 10-07-2021 End: 85-52-6567tehasznftmRaircy GehlingFacility:UTMCStart: 10-06-2021 End: 14-42-7460iduxrsuetpGytdlx GehlingFacility:UTMCStart: 08-12-2021 End: 19-45-1908qpsqhhilvdOPPMCSIW SELFFacility:UTMCStart: 2017 End: 31-23-9343QfclhdbbzvOBLV W NIELSENFacility:ENT Spec-NorthStart: 11-18-2017 End: 24-12-9541DvdpxmpelzBZDW W NIELSENFacility:[facility] Spec-NorthStart: 10-28-2017 End: 75-61-4621WisjcxbrugBujgk Silvana KyaraFacility:[facility] Spec-NorthStart: 10-14-2017 End: 32-74-8239BfbdtelqqvVQDR Andrey NIELSENFacility:[facility] Spec-TiffinStart: 09-16-2017 End: 63-89-4783PnncxnfgjuQSWZ W NIELSENFacility:[facility] Spec-TiffinStart: 06-24-2017 AmbulatoryERIK Andrey NIELSENFacility:[facility] Spec-TiffinStart: 04-20-2017 End: 33-02-2829JxxdqvfbfaCFXJ W NIELSENFacility:[facility] Procedures DateProcedureProcedure DetailPerforming ClinicianStart: 53-00-0408Wwbctohjvz examination knee 10/12 viewsMadileep PENNINGTON Work Phone: Start: 43-06-6228QZO,APTIMA HPV,AGE GDLNCorey Tano DO Work Phone: Start: 73-19-8238Hzwzaxbufhe observation [Identifier] in Cervix by Cyto stainMando PENNINGTON Work Phone: Start: 56-77-4977V-ray of left ankleMD Arleth Baltazar Work Phone: Start: 28-27-7979Cvkxuumrbyy removal of ureteric stent ELIZABTEH CHOI Start: 03-23-0797Nvoaczwpxem laser lithotripsy of ureteric calculusDANIELNNIFER STEPH Start: 79-26-0603Baaezbtirro removal of ureteric stent Diana HAWKINS Start: 97-02-9751Iygapaenxhx insertion of ureteric stentDiana HAWKINS Start: 24-04-2639Vbjybupi screenDamarquita LaneComment on above:Performed By: #### [id number] #### [facility] [place] [address], USAAppendectomyPatrick HAWKINS arthroplasty of kneePatrick HAWKINS arthroscopy of kneePatrick HAWKINS Bypass of stomachPatrick HAWKINS CholecystectomyPatrick HAWKINS HysterectomyPatrick HAWKINS Implantation of temporary spinal cord stimulatorPatrick HAWKINS TonsillectomyPatrick HAWKINS Plan of Treatment DateCare ActivityDetailAuthorStart: 16-37-5529Vdttegcbp for malignant neoplasm of cervixNOWV HealthcareStart: 03-21-2026 End: 28-57-5689Nbfjfwi encounter procedureNOWV BCP OBStart: 09-11-2025 End: 78-01-6532Kudtkfv encounter hrzuohbvu83/02/2025 10:00 AM EST Office Visit [facility] [place] [address] Jr. Nasir Thacker, DO [address] [address] JETHRO [facility]opa[facility]icsStart: 08-14-2025 End: 57-80-3307LF Knee - right WO contrastMR knee right wo IV contrast Imaging Routine Internal derangement of right knee Expected: 08/14/2025 (Approximate), Expires: 08/14/2026NOMercy hospital [facility] Work Phone: Comment on above:Expected: 08/14/2025 (Approximate), Expires: 08/14/2026Start: 08-14-2025 End: 61-05-0228Disnxrg encounter olybdvwll69/04/2025 10:15 AM EST Office Visit [facility] [place] [place] [address] Mando Villasenor, ADITI [address] [place] [address] Acute pain of right knee (Primary Dx)NOMSt. [facility] Medical Center OrthopaedicsComment on above:Acute pain of right knee (Primary Dx)Start: 80-37-0080LCWRQ-19 Vaccine ( season)COVID-19 Vaccine ( season)[facility] HealthcareStart: 70-26-0816Mcozsiykf vaccinationSaint Joseph Hospital of [facility] Start: 12-70-8545Feduvkmr identified in Urine by CultureUrine [facility] Hospitaltart: 08-56-0974Pqgkt [facility] Hospitaltart: 03-19-2025 End: 83-89-9894Phweedz encounter efohpxdwg26/09/2025 4:00 PM EDT Office Visit [facility] [address] [place] [address] Eduardo Freedman, DO [address] [place] [address] ArrivedST. FRANCIS [facility]ENTER OBComment on above:ArrivedStart: 03-19-2025 End: 99-41-9844SR Breast - bilateral ScreeningBilateral screening mammogram Imaging Routine Breast cancer screening by mammogram Expected: 03/19/2025 (Approximate), Expires: 05/19/2026[facility] Work Phone: comment on above:Expected: 03/19/2025 (Approximate), Expires: 05/19/2026Start: 17-14-4938Eazdmgpon vaccinationFlu vaccine (#1)[facility]Start: 26-46-8555DLMLT-19 Vaccine ( season)COVID- 19 Vaccine ( season)[facility]ITALStart: 05-28-2023 [facility] Campustart: 00-97-0783Rkjpn panelLipidsBON [facility]OSPITALStart: 00-27-9849Xihbqzuge for malignant neoplasm of breastBON [facility] HEALTHStart: 49-21-3639LYeX/Tdap/Td vaccine (2 - Td or Tdap) DTaP/Tdap/Td vaccine (2 - Td or Tdap)[facility]art: 2016 Diabetes screenDiabetes screenInova Fairfax Hospitalart: 11-08-3924Oufzdkvjk for malignant neoplasm of cervixNOWV HealthcareStart: 52-20-6029Bfhnopfsb for malignant neoplasm of cervixPap SmearMOUNTAINSTAR HEALTHCARE HealthcareStart: 63-39-9763Hctkhsgje C screeningHepatitis C [facility]smouthStart: 49-16-1763OPX screeningHIV [facility] Hospitalart: 68-31-3125Wnlrhhniin Screen Depression [facility] Centerart: 58-89-7407Zphfydknh vaccine (1 of 2 - 2-dose childhood series)Varicella vaccine (1 of 2 - 2-dose childhood series)[facility] Hospitalart: 57-08-3992Duszrgleg B vaccine (1 of 3 - 3- dose series)Hepatitis B vaccine (1 of 3 - 3-dose series)[facility] End: 66-69-2891SX Neck W contrast IVWELLMONT HEALTH SYSTEM Work Phone: Comment on above:1 Occurrences starting 05/01/2024 until 05/01/2024Iron binding capacity [Mass/volume] in Serum or PlasmaTrinity Health System East CampusIron saturation [Mass Fraction] in Serum or Plasma [facility] East CampusTHIN PREP TIS PAP AND HR HPV DNATHIN PREP TIS PAP AND HR HPV DNA Pathology and Cytology Routine Well woman exam with routine gynecological exam Ordered: 03/19/2025[facility] KirkwoodComment on above:Ordered: 03/19/2025 Immunizations Immunization DateImmunizationNotesCare BdnqjcbxDizurdhj38-85-9510kbtoaglvc virus vaccine, unspecified formulationFRANCISCODAVION CHOI [facility]10-19-2022SARS-CoV-2 (COVID-19) mRNAMUL.ORD!y50691BSQZFRIK PERRY [facility]12-29-2021SARS-CoV-2 (COVID-19) mRNA BNT-162b2 Spanning Cloud AppsxAridis Pharm[employer] [facility]04-22-2021SARS-CoV-2 (COVID-19) mRNA BNT-162b2 [employer] AppsxAr[employer] [facility]04-01-2021SARS-CoV-2 (COVID-19) mRNA BNT-162b2 vaxAridis Pharmaceuticals [facility]10-01-2020influenza virus vaccine, unspecified formulationAridis Pharmaceuticals [facility]09-23-2020influenza virus vaccine, unspecified formulationPaCorsair [facility]10-08-2019influenza virus vaccine, unspecified formulationAridis Pharmaceuticals [facility]09-28-2018influenza virus vaccine, unspecified formulationAridis Pharmaceuticals [facility]03-23-2016pneumococcal polysaccharide vaccine, 23 valentAridis Pharmaceuticals [facility]12-08-2013influenza virus vaccine, unspecified formulationAridis Pharmaceuticals [facility]09-30-2011tetanus toxoid, reduced diphtheria toxoid, and acellular pertussis vaccine, adsorbedPaCorsair [facility] Payers DatePayer CategoryPayerPolicy [id number] Health Insurance [id number]-[id number] I[id number] [id number] 2.16840.1.612358.3.57[id number] 2.840.1.653437.3.57[id number] 2.840.1.476693.3.57[id number] 2.840.1.680553.3.579.[id number] 2.840.1.797857.3.57[id number] 2.840.1.361352.3.57[id number] 2.840.1.662216.3.579.2.5[id number] 2.840.1.728647.3.57[id number] 2.840.1.276410.3.579.2.[id number] 2.840.1.344374.3.57[id number] 2.840.1.018709.3.579.[id number] 2.840.1.685977.3.57[id number] 2.840.1.814408.3.579.[id number] 2.840.1.213773.3.57[id number] 2.840.1.143710.3.579.2.[id number] 2.840.1.959517.3.579.2.04868-34-1983Ctzmxoq1391382 2.840.1.471582.3.579.2.[id number] 2.840.1.721171.3.579.2.99103-19-0977Oktrusq7273951 2.0.1.944197.3.579.2.56346-82-7879Paoookt9374056 2.840.1.927534.3.579.2.55683-91-6678Maahlkt1575807 2.0.1.991550.3.579.2.18052-46-8067Dxcjhbv8445166 2.0.1.637329.3.579.2.92745-67-2772Stafvsv0590028 2.0.1.423031.3.579.2.86122-27-1139Hhqrebf2925411 2.840.1.269810.3.579.2.37054-45-2589Zgfyibw0092567 2.840.1.819280.3.57[id number] 2.840.1.846198.3.579.2.402 [id number] 2.840.1.151428.3.579.2.60263-87-5042Vwvuzvr7490214 2.16.840.1.298676.3.579.2.35491-08-8953Oyychtv4210347 2.0.1.803718.3.579.2.39551-11-3681Sstcrvu3175354 2.840.1.511438.3.579.2.34810-38-6770Jrjeplo9012808 2.0.1.260634.3.579.2.02290-27-0338Lyavdyz7542588 2..1.982798.3.579.2.84086-18-6885Ovfzstv5027713 2..1.168481.3.579.2.03695-87-4471Sldcfqe9258759 2..1.859986.3.579.2.27347-61-0914Kcelcme25960395 2.0.1.041230.3.579.2.6[id number] 2..1.453429.3.579.[id number] 2..1.787544.3.579.2.08[id number] 2..1.819769.3.579.2.94199-03-6526Hbbjmko662366722 2..1.731759.3.579.[id number] 2..1.522708.3.579.2.848379-39-1856Bzmfibr010071598 2.0.1.344091.3.579.2.311568-50-3130Kvbbsez662657621 2.0.1.945424.3.579.2.029129-19-4552Izdj-[id number] [id number] b41980o2-j4b9-6074-u861-[id number] 2.16.840.1.219665.3.579.2.531 Social History DateTypeDetailFacilityStart: 06-29-2022 End: 13-69-4068Brrhdyx smoking statusEx-smoker (finding)[facility]: 04-18-2024 End: 68-32-9715Xki Assigned At [facility] start: 38-89-7958Cjp Assigned At [facility] Hospitaltart: 57-51-4127Qyccwjk smoking statusNeverExec[facility] End: 17-78-6399Vaiilgy of tobacco useCurrent smokerBOSTON HOME FOR INCURABLESClipMine [facility] End: 61-32-6116Hmymyfh of tobacco useCigarette SmokerBOSTON HOME FOR INCURABLESYeahMobi [facility] History of tobacco usePassive smokerBOSTON HOME FOR INCURABLESYeahMobi [facility]OS[facility]ITALStart: 04-18-2024 End: 86-11-9522Dhnoogo use and exposureSmokeless tobacco non-userBOSTON HOME FOR INCURABLESClipMine [facility]Start: 84-28-8108Swbqvyh intakeCurrent non-drinker of alcohol (finding)[facility]Start: 04-18-2024 End: 88-25-6854Wdngrav of Social functionWELLMONT HEALTH SYSTEMStart: 56-61-1114Bwp Assigned At BirthNot on fileWELLMONT HEALTH SYSTEMTobacco smoking status NHISTobacco smoking consumption unknownNOMS HealthcareSexFemale (finding)[facility] Campustart: 80-61-5756Lzzbqeb smoking status NHISNever smoked tobaccoNOMS Healthcare Functional Status PxbrVcabjlmatlPhjfevXjckyzfr87-57-3506Zjwhebryrt StatusN/AExec[facility]01-02-2024Functional StatusN/AFisher - Kennedy Krieger InstituteRofbrh45-58-6834Crlqqsdmcp StatusN/AExec[facility]09-19-2022Functional StatusN/A[facility] Clinical Notes 06-16-2022 to 08-14-2025 Note Date & QocrMbfyTnojhsvk91-80-9245 History of Present illness Narrative* ADITI Catalan - 08/14/2025 10:15 AM EST [...] TODAY RT KNEE EPIC 08/14/25 [facility] RT KNEE SCOPE 12/21/17 - DR THACKER PAIN MEDIAL AND LATERAL PATELLA. CAN SOMETIMES [...] advised against, although Motrin is taken occasionally. Watonga is also used. An implanted spine stimulator, [...] requiring urgent evaluation. Visit was preformed using [employer]-p[employer] teacher speech recognition. documented in this encounterSaint Joseph Hospital of KirkwoodRjvwcwaruf64-23-9692 [place] [address] Subjective Patient ID: Elvi Moore is a 44 y.o. female. 44 year old female here for follow up for chronic left knee pain and medication management. She reports her pain has been more severe lately with the weather change. She rates her pain 6/10 in her knee today. She is still working to make adjustments with her SCS to cover more of her anterior knee pain. She continues on Watonga 7.5/325 QID and Lyrica 100 BID with moderate benefit. She endorses the medication does help her be functional and to get through her day. She denies adverse side effects to the medications. 07/24/25 CC: Chief Complaint Patient presents with Med Management Refill Watonga Pill Count Follow-up SCS Pain Assessment Pain Assessment: 0-10 Pain Score: 6 Pain Type: Chronic pain Pain Location: Knee Pain Orientation: Left Pain Descriptors: Sharp, Stabbing, Aching, Numbness, Cramping Pain Frequency: Constant/continuous Pain Onset: Ongoing Aggravating Factors: Walking, Stretching, Straightening, Standing, Stairs, Squatting, Kneeling, Exercise, Bending, Other (Comment) (Everything) Result of Injury: No Work-Related Injury: No Patient's Stated Pain Goal: No pain Pain Interventions: Medication (See MAR), Heat applied, Cold applied Response to Interventions: SCS gives 50% releif and medication gives about maybe 60% relief last about 3-4 hours SUBJECTIVE: Elvi Moore is a 44 y.o. female who presents for follow up with a chief complaint of left knee pain. Since last visit patient reports pain is stable. Most recently patient underwent a xray of her stimulator to verify lead position which are still in place despite retention loop lost. 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 Past Surgical History: Procedure Laterality Date APPENDECTOMY BARIATRIC SURGERY February 2017 CHOLECYSTECTOMY COLONOSCOPY CYSTOSCOPY HYSTERECTOMY 05/05/10 INNER EAR SURGERY JOINT REPLACEMENT 06/01/22 KIDNEY STONE SURGERY 2021 KNEE ARTHROPLASTY Left 06/01/2022 revision KNEE ARTHROPLASTY Left 10/30/2021 KNEE SURGERY arthroscopy ORTHOPEDIC SURGERY 06/01/2022 OTHER SURGICAL HISTORY 07/17/2024 Tumor OTHER SURGICAL HISTORY Left 12/05/2024 genicular nerve block SPINAL CORD STIMULATOR IMPLANT TONSILLECTOMY TUBAL LIGATION UMBILICAL HERNIA REPAIR Allergies Allergen Reactions Toradol [Ketorolac] Shortness of breath and Rash Compazine [Prochlorperazine] Hallucinations Meperidine Rash Other reaction(s): Unknown Objective Ht 1.676 m (5' 6 ) Wt 73.5 kg (162 lb) BMI 26.15 kg/m??? General: well developed, well nourished, no [...] 1. Interventions: None today 2. Medications: Continue Watonga 7.5/325mg TID PRN for severe pain 8-10 - Increase lyrica 150mg BID 3. MAPS/OARRS pulled and reviewed. -ODS/ORT/COT: 07/24/25 4. Lumbar xrays reviewed with patient and [...] a Controlled Substance Agreement (CSA) with our o (more content not included)...[facility]07-15-2025 [place] [address] Subjective Patient ID: Elvi Moore is a 44 y.o. female. 44 year old female here for follow up for medication management. She rates her pain 5/10 in her left knee. She continues on Wat[place]a 7.5/325 TID and Lyrica 100 mg BID with good benefit. She denies adverse side effects. She is getting better coverage of pain relief with the increased dose of medication. She follows with Dr. Burkett. She reports getting great relief from her SCS but does not cover all areas of her knee pain. 04/24/25 CC: Chief Complaint Patient presents with Med Management Refill Watonga and Lyrica Pill count No bottle Follow-up [...] retention loop lost. 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 Interventions: None today 2. Medications: Continue [place]a 7.5/325mg TID PRN for severe pain 8-10 [...] and OARRS review. The patient understands the ri (more content not included)...[facility]06-09-2025 History of Present illness Narrative* Magdalena Adam, SOLAR PANEL INSTALLATION SUPERVISOR - 03/19/2025 4:00 PM EDT Reason for Appointment: Patient ID: Elvi Moore is a 44 y.o. female who presents for Well Women Visit Patient presents today for Annual Exam. MEDICATIONS No current outpatient medications ALLERGIES Allergies Allergen Reactions Ketorolac Rash and Shortness of breath Other Reaction(s): Unknown Desonide Ketorolac Tromethamine Rash Other Reaction(s): Other (See Comments) Meperidine Rash Other Reaction(s): Other (See Comments) Other reaction(s): Unknown Meperidine Hcl Rash Other Reaction(s): Unknown Prochlorperazine Hallucinations PROBLEMS Active Ambulatory Problems Diagnosis Date Noted No Active Ambulatory Problems Resolved Ambulatory Problems Diagnosis Date Noted No Resolved Ambulatory Problems No Additional Past Medical History HISTORY PAST MEDICAL HISTORY SOCIAL HISTORY History reviewed. No pertinent past medical history. Social History Tobacco Use Smoking status: Not on file Smokeless tobacco: Not on file Substance Use Topics Alcohol use: Not on file Drug use: Not on file FAMILY HISTORY No family history on file. SURGICAL HISTORY History reviewed. No pertinent surgical history. REVIEW OF SYSTEMS Review of Systems: Review of Systems Constitutional: Negative. HENT: Negative. Eyes: Negative. Respiratory: Negative. Cardiovascular: Negative. Gastrointestinal: Negative. Genitourinary: Negative. Positive for vaginal dryness. Musculoskeletal: Negative. Skin: Negative. Neurological: Negative. Psychiatric/Behavioral: Negative. Hematological: Negative. Endocrine: Negative. Allergic/Immunologic: Negative. OBJECTIVE Objective: Physical Exam Constitutional: Appearance: Normal appearance. She is well-developed. Genitourinary: Vulva normal. Breasts: Breasts are soft. Right: Normal. Left: Normal. Cardiovascular: Rate and Rhythm: Normal rate and regular rhythm. Pulmonary: Effort: Pulmonary effort is normal. Breath sounds: Normal breath sounds. Abdominal: General: Bowel sounds are normal. There is no distension. Palpations: Abdomen is soft. Tenderness: There is no abdominal tenderness. There is no guarding or rebound. Musculoskeletal: General: No swelling. Normal range of motion. Right lower leg: No edema. Left lower leg: No edema. Neurological: Mental Status: She is alert and oriented to person, place, and time. Skin: General: Skin is warm and dry. Psychiatric: Mood and Affect: Mood normal. Behavior: Behavior normal. Vitals and nursing note reviewed. Exam conducted with a pmo lead present. Vitals: Estimated body mass index is 26.75 kg/m as calculated from the following: Height as of 07/02/21: 5' 7 . Weight as of this encounter: 170 lb 12.8 oz. BP: 112/72 No LMP recorded. ASSESSMENT & PLAN ICD-10-CM 1. Well woman exam with routine gynecological exam Z01.419 THIN PREP TIS PAP AND HR HPV DNA 2. Breast cancer screening by mammogram Z12.31 Bilateral screening mammogram Bilateral screening mammogram Annual Exam: Patient presents today for an annual exam. Patient states she is doing well and has no complaints. Pap was obtained without difficulty. Orders Placed This Encounter Procedures Bilateral screening mammogram Follow Up: Patient is to return in one year for annual unless needed otherwise. Patient reports vaginal dryness and will attempt coconut oil as she has trailed vaginal estrogen and she felt this caused a yeast infection. Patient will call our office if coconut oil does not help with Dyspareunia. Documented by Magdalena Adam NP on behalf of: Eduardo Freedman DO documented in this encounterSaint Joseph Hospital of [id number] [address] Subjective Patient ID: Elvi Moore is a [...] retention loop lost. She is working with [employer] to aid in programming options but overall [...] GTB Med Refill Lyrica Med Management Refill Watonga Pill Count No bottle Pain Assessment Pain [...] 1. Chronic, continuous use of opioids HYDROcodone-acetaminophen (Watonga) 7.5-325 mg tablet 2. Complex regional pain syndrome type 1 of left lower extremity HYDROcodone-acetaminophen (Watonga) 7.5-325 mg tablet 3. Presence of neurostimulator HYDROcodone-acetaminophen (Watonga) 7.5-325 mg tablet 4. S/P left knee arthroscopy 5. Neuralgia and neuritis Discussed chronic pain, medication use, treatment goals. Medication risk and benefits discussed. The Spine Diagram and Test results were used to explain the condition. PLAN: 1. Increase Watonga 7.5/325mg TID PRN for severe pain 8-10 [...] and the patien (more content not included)... [facility]03-17-2025 NoteOrthopedic Surgery Subjective Edema, Follow-up, and Pain of [...] sees pain management and is currently taking Watonga every 8 hours and Lyrica. She also [...] throughout Stable to ante (more content not included)...[facility] 10-19-2024 [place] [address] Subjective Patient ID: Elvi Moore is a [...] retention loop lost. 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 Other chronic postprocedural pain pregabalin (Lyrica) 50 mg capsule HYDROcodone-acetaminophen (Watonga) 5-325 mg tablet 5. Presence of neurostimulator Discussed chronic pain, medication use, treatment goals. Medication risk and benefits discussed. The Spine Diagram and Test results were used to explain the condition. PLAN: 1. Continue [place] 5/325mg TID PRN for severe pain 8-10 [...] All questions are ans (more content not included)...[facility]05-28-2024 Hospital Discharge instructions Patient Education 03/07/2024 16:29:32 [...] about 300 mg of calcium at each meal.Foods that contain 200 500 mg of calcium a serving include: ?8 oz (237 mL) of milk, lpgcnpb-zranrmcgiweh-araci milk, and calcium- fortifiedfruit juice. Calcium-fortified means that calcium has been [...] the table and allow each person to addtheir own salt to taste. Use vegetable protein, such as beans, textured vegetable protein (TVP), or tofu, instead of meat inpasta, casseroles, and soups. Meal planning Eat less salt, if told by your dietitian. To do this: ?Avoid eating processed or pre-made food. ?Avoid eating fast food. Eat less animal protein, including cheese, meat, poultry, or fish, if told by your dietitian. To dothis: ?Limit the number of times you have meat, poultry, fish, or cheese each week. Eat a diet free of meat at least 2 days a week. ?Eat only one serving each day of meat, poultry, fish, or seafood. ?When you prepare animal proteins, cut pieces into small portion sizes. For most meat and fish, oneserving is about the size of the palm [...] ?Spinach (cooked), rhubarb, beets, sweet potatoes, and Kuwaiti chard. ?Peanuts. ?Potato chips, albanian fries, and baked potatoes with skin on. ?Nuts and nut products. ?Chocolate. If you regularly take a diuretic medicine, make sure to eat at least 1 or 2 servings of fruits or vegetables that are high in potassium each day. These include: ?Avocado. ?Banana. ?Udell, prune, carrot, or tomato juice. ?Baked potato. [...] magnesium, fish oil, or vitamin B6. Take rmyd-ezd-oywqcvz and prescription medicines only as told by [...] Casseroles. Pizza. Lasagna. Frozen meals. Potato chips. Slovenian fries. The items listed above may not be a complete list of foods and beverages you should limit. Contact a dietitian for more information. What foods should I avoid? Talk to your dietitian about specific foods you should avoid based on the type of kidney stones youhave and your overall health. Fruits Grapefruit. The item listed above may not be a complete list of foods and beverages you should avoid. Contact adietitian for more information. Summary Kidney stones are [...] provider. Document Revised: 01/07/2023 Document Reviewed: 01/07/2023 [employer] Patient Education 2022 [employer]. Follow Up Care 01/26/2024 10:43:28 With:ELIZABETH CHOI PA-C, URL Address: [address] [place] [place] [address] [phone] When: Unknown [facility] 01-02-2024 Hospital Discharge instructions Patient Education 10/12/2023 10:36:51 [...] 08:10:49 With:Diana HAWKINS Address: [facility] [address] [place] [address]- [facility] (1) When:01/11/2024 10:36:33 Comments:With a stone metabolic workup [facility]12-04-2023 Hospital Discharge instructions Patient Education 09/13/2023 12:55:24 [...] including vitamins, herbs, eye drops, creams, and fdnu-vpm-yxywfpd medicines. Any problems you or family members [...] provider tells you to take them. Taking ybnc-ksp-xxfgyqs medicines, vitamins, herbs, and supplements. Tests You [...] Follow these instructions at home: Medicines Take fqhr-kbt-takinwt and prescription medicines only as told by your health care provider. If you were prescribed an antibiotic medicine, take it as told by your health care provider. Do notstop taking the antibiotic even if you start [...] blood in your urine increases, call your healthcare provider. Follow instructions from your health care provider about eating or drinking restrictions. If a tissue sample was removed for testing (biopsy) during your procedure, it is up to you to get your test results. Ask your health care provider, or the department that is doing the test, when yourresults will be ready. Drink enough fluid to [...] blood in your urine increases, call your healthcare provider. If you were prescribed an antibiotic medicine, take it as told by your health care provider. Do notstop taking the antibiotic even if you start to feel better. This information is not intended to replace advice given to you by your health care provider. Make sure you discuss any questions you have with your health care provider. Document Revised: 06/10/2022 Document Reviewed: 05/09/2021 [employer] Patient Education 2022 [employer]. 09/13/2023 12:55:19 Hematuria, Adult Hematuria, Adult Hematuria is blood in the urine. Blood may be visible in the urine, or it may be identified with a test. This condition can be caused by infections of the bladder, urethra, kidney, or prostate. Otherpossible causes include: Kidney stones. Cancer of the [...] blood in your urine, even if it ispainless or the blood stops without treatment. Blood in the urine, when it happens and then stops and then happens again, can be a symptom of a very serious condition, including cancer. There is no pain in the initial stages of many urinary cancers. Follow these instructions at home: Medicines Take isdj-nzf-incvqpu and prescription medicines only as told by your health care provider. If you were prescribed an antibiotic medicine, take it as told by your health care provider. Do notstop taking the antibiotic even if you start to feel better. Eating and drinking Drink enough fluid to keep your urine pale yellow. It is recommended that you drink 3 4 quarts (2.83.8 L) a day. If you have been diagnosed with an infection, drinking cranberry juice in addition tolarge amounts of water is recommended. Avoid caffeine, [...] about any blood in your urine, even ifit is painless or the blood stops without treatment. Take dyjy-jeo-wrzqscf and prescription medicines only as told by your health care provider. Drink enough fluid to keep your urine pale yellow. This information is not intended to replace advice given to you by your health care provider. Make sure you discuss any questions you have with your health care provider. Document Revised: 05/28/2021 Document Reviewed: 05/28/2021 Elsevier Patient Education 2022 Colto. Follow Up Care 08/20/2023 11:43:21 With:ROSS GENTILE, Diana Goss, RASHIL Address: [facility] [address], [place] [address] [phone] When: Unknown Comments:sched cysto [facility] Monique 03-27-2023 Hospital Discharge instructions Patient Education 01/04/2023 08:39:16 [...] about 300 mg of calcium at each meal.Foods that contain 200 500 mg of calcium [...] Talk to your dietitian about how much calciumis recommended for you. Shopping Buy plenty of [...] the table and allow each person to addhis or her own salt to taste. Use [...] fish, if told by your dietitian. To dothis: ?Limit the number of times you have [...] include: ?Spinach. ?Rhubarb. ?Beets. ?Potato chips and albanian fries. ?Nuts. If you regularly take a diuretic medicine, make sure to eat at least 1 2 fruits or vegetables high in potassium each day. These include: ?Avocado. ?Banana. ?Udell, prune, carrot, or tomato juice. ?Baked potato. [...] fish. Salted or cured meats. Deli meats. Hotdogs. Sausages. Dairy Cheese. Beverages Regular soft drinks. Regular vegetable juice. Seasonings and other foods Seasoning blends with salt. Salad dressings. Canned soups. Soy sauce. Ketchup. Barbecue sauce. Canned pasta sauce. Casseroles. Pizza. Lasagna. Frozen meals. Potato chips. Slovenian fries. Summary You can reduce your risk of kidney stones by making changes to your diet. The most important thing you can do is drink enough fluid. You should drink enough fluid to keep your urine clear or pale yellow. Ask your health care provider or dietitian how much protein from animal sources you should eat eachday, and also how much salt and calcium you should have each day. This information is not intended to replace advice given to you by your health care provider. Make sure you discuss any questions you have with your health care provider. Document Released: 01/22/2012 Document Revised: 01/17/2020 Document Reviewed: 09/07/2017 [employer] Patient Education 2020 Colto. Follow Up Care 10/29/2022 14:23:18 With:ROSS GENTILE, Diana Goss, URL Address: [facility] [address] [place] [address]- When: Unknown [facility] 09-19-2022 Evaluation + Plan note Diagnostic Tests Pending * Uro[facility]ysion Fish and Urine Cyto ([facility]) 06/29/22 [facility] 09-19-2022 Hospital Discharge instructions Patient Education 06/29/2022 09:47:50 Hematuria, Adult Hematuria, Adult Hematuria is blood in the urine. Blood may be visible in the urine, or it may be identified with a test. This condition can be caused by infections of the bladder, urethra, kidney, or prostate. Otherpossible causes include: Kidney stones. Cancer of the [...] blood in your urine, even if it ispainless or the blood stops without treatment. Blood in the urine, when it happens and then stops and then happens again, can be a symptom of a very serious condition, including cancer. There is no pain in the initial stages of many urinary cancers. Follow these instructions at home: Medicines Take ghob-gpr-hkftrtz and prescription medicines only as told by your health care provider. If you were prescribed an antibiotic medicine, take it as told by your health care provider. Do notstop taking the antibiotic even if you start [...] about any blood in your urine, even ifit is painless or the blood stops without treatment. Take gxvd-yny-bbdxjjy and prescription medicines only as told by your health care provider. Drink enough fluid to keep your urine clear or pale yellow. This information is not intended to replace advice given to you by your health care provider. Make sure you discuss any questions you have with your health care provider. Document Released: 09/27/2006 Document Revised: 02/21/2020 Document Reviewed: 10/30/2017 [employer] Patient Education 2020 [employer]to. Follow Up Care 05/06/2022 15:50:29 With:ROSS GENTILE, Diana Goss, URL Address: [facility] [address] , [place] [address] [phone] When: Unknown [facility] 09-06-2022 NoteMR#: [id number] I [facility] Pt. Name: Elvi Moore Admitted: 06/01/2022 [...] Cavazos MD Date Trans: 06/16/2022 02:27 P/taylor DN_[id number] cc: Arleth Acharya M.D. [address] [phone] + [facility] note Future Appointments Appointment Date:01/11/2023 01:45:00 PM Scheduled Provider:Diana HAWKINS MD Location:[facility] Appointment Type:URO Office Visit [facility] evaluation + Plan note Future Appointments Appointment Date:02/07/2024 10:15:00 AM Scheduled Provider:Diana HAWKINS MD Location:[place] Appointment Type:[facility] information [facility] Work Phone: Evaluation note* Diagnosis Onset Date Resolution Status Left ankle sprain noneactive [facility] Work Phone: Evaluation note* Diagnosis Pleomorphic adenoma of parotid gland documented in this encounter [facility] note* Diagnosis Well woman exam with routine gynecological exam Routine gynecological examination Breast cancer screening by mammogram documented in this encounter [facility]* Diagnosis Acute pain of right knee- Primary Internal derangement of right knee documented in this encounter [facility] Healthcare[facility] Narrative No data available for this section [facility] progress note No data available for this section [facility] reason for referral (narrative)No reason for referral [facility] Work Phone: Summary Purpose Family History Relationship Condition Age at Onset Recorded Date/T norman sister Malignant neoplasm of breast Unknown Not SpecifiedNeoplasm of brainUnknown Relationship Condition Age at Onset Recorded Date/T norman sister Malignant neoplasm of breast Unknown motherNeoplasm of brainUnknown Advance Directives Advance Directive Response Recorded Date/ Time Advance Directives No June 5:02pm Chief Complaint and Reason for Visit Chief Complaint microcytic anemia Chief Complaint left leg pain w inju ry W19.XXXA - Unspecified fall, initial encounterReason for VisitLeft ankle sprain Chief Complaint left leg pain w inju ry W19.XXXA UnknownReason for VisitLeft ankle sprain Chief Complaint Admit Date Unknown May 04, 2025 12:3 9pm Reason for Referral SpecialtyDiagnoses / ProceduresReferred By ContactReferred To ContactRadiology Diagnoses Pleomorphic adenoma of parotid gland Procedures CT SOFT TISSUE NECK W CONTRAST Bill Brown MD [address] [address] Referral IDStatusReasonStart DateExpiration DateVisits RequestedVisits [id number]/22/202410/19/202411 Additional Source Comments INFORMATION SOURCE (unrecogn ized section and content) DATE CREATED AUTHOR 03/31/2018 [facility] DATE CREATED AUTHOR AUTHOR'S ORGANIZ ATION 06/23/2022 [facility] DATE CREATED AUTHOR AUTHOR'S ORGANIZ ATION 01/28/2023 [facility] DATE CREATED AUTHOR AUTHOR'S ORGANIZ ATION 05/04/2024 [facility] DATE CREATED AUTHOR AUTHOR'S ORGANIZ ATION 07/19/2024 [facility] DATE CREATED AUTHOR AUTHOR'S ORGANIZ ATION 03/20/2025 [facility] DATE CREATED AUTHOR AUTHOR'S ORGANIZ ATION 05/06/2025 [facility] DATE CREATED AUTHOR AUTHOR'S ORGANIZ ATION 07/29/2025 [facility] DATE CREATED AUTHOR AUTHOR'S ORGANIZ ATION 08/04/2025 [facility] DATE CREATED AUTHOR AUTHOR'S ORGANIZ ATION 08/13/2025 [facility] Care Team (unrecognized sect ion and content) Team Status: Active Member Role Status Dates Arleth Acharya MD Primary Care Provider Active Team Status: Inactive Member Role Status Dates Arleth Acharya MD Primary Care Provider Active Start: January 06, 2024 End: January 05Monie Brady ProviderActiveStart: January 06, 2024 End: January 06, 2024 Team Status: Active Member Role Status Dates Arleth Acharya MD Primary Care Provider, Referring Pr sebastian Active Monie Mcgrath ProviderActive Team Status: Inactive Member Role Status Dates Harry Pettit MD Attending Provider Active Star t: March 22, 2024 End: March 22, 2024Team MemberRelationshipSpecialtyStart DateEnd Date Arleth Acharya MD [address] [place] [address] PCP - General12/30/14 Team Status: Inactive Member Role Status Dates Arleth Acharya MD Attending Provider Active Sta rt: May 04, 2025 End: May 04, 2025Team MemberRelationshipSpecialtyStart DateEnd Date Unallocated, Jethro Jimenez MD [address] [place] [address] PCP - [facility]08/13/25Team MemberRelationshipSpecialtyStart DateEnd Date Unallocated, Jethro Jimenez MD [address] [place] [address] PCP - [facility]08/13/25 Goals (unrecognized section and content) Goals may be documented in a n alternate section Reason for Visit (unrecogniz ed section and content) SpecialtyDiagnoses / ProceduresReferred By ContactReferred To ContactRadiology Diagnoses Pleomorphic adenoma of parotid gland Procedures CT SOFT TISSUE NECK W CONTRAST Bill Brown MD [address] [address] Referral IDStatusReasonStart DateExpiration DateVisits RequestedVisits [id number]/22/202410/912073YbjmvqEcnanirwHugf Women Visit ReasonCommentsPain FOR RECORDS PERTAINING TO PATIENTS WHO ARE [...] BE BASED ON THE PRIMARY CLINICAL RECORDS. [facility] Sleep Number [facility]. provides no warranty or guarantee of the accuracy or completeness of information in this document.
[2025-08-14 12:48] LABS: Hematocrit 37.6 % (36.0-48.0); Hemoglobin 11.6 g/dL (12.0-16.0); Immature Granulocytes Abs Auto 0.00 10^3/uL (0.00-0.03); Immature Granulocytes Pct Auto 0.0 % (0.0-0.5); Lymphocytes Absolute Auto 1.7 10^3/uL (1.2-3.8); Mean Corpuscular HGB Conc 30.9 g/dL (29.9-35.2); Mean Corpuscular Hemoglobin 25.1 pg (26.7-34.0); Mean Corpuscular Volume 81.4 fL (81.0-99.0); Platelet Count 262 10^3/uL (150-450); Red Blood Count 4.62 10^6/uL (4.20-5.40); White Blood Count 7.0 10^3/uL (4.0-11.0)
[2025-08-14 13:07] LABS: Alanine Aminotransferase 19 U/L (14-59); Albumin Globulin Ratio 1.0; Albumin Level 3.8 g/dL (3.4-5.0); Alkaline Phosphatase 110 U/L (46-116); Amylase 72 U/L (25-115); Anion Gap 13.8; Aspartate Amino Transferase 12 U/L (15-37); Blood Urea Nitrogen 13.0 mg/dL (7.0-18.0); Calcium 9.0 mg/dL (8.5-10.1); Carbon Dioxide 29.1 mmol/L (21.0-32.0); Chloride 105 mmol/L (98-107); Estimated GFR (African America >60 (>=60 mL/min/1.73m^2); Estimated GFR (Non-African Ame >60 (>=60 mL/min/1.73m^2); Globulin 3.8 g/dL; Glucose 103 mg/dL (74-106); Lipase 101.0 U/L (16.0-77.0); Potassium 3.9 mmol/L (3.5-5.1); Sodium 144 mmol/L (136-145); Total Protein 7.6 g/dL (6.4-8.2)
== END 2025-08-14 12:25 | disposition home or self-care (01) ==
LOC: LAB 12:25
PROVIDERS: PCP Family Medicine; Visit Provider Family Medicine
DX: R10.9 Unspecified abdominal pain (principal)
CPT/HCPCS: 36415; 80053; 82150; 83690; 85025

== ENCOUNTER 2025-09-05 07:45 | Outpatient (OUT) | payer OTHER, SELFPAY ==
--- OUTSIDE RECORDS SUMMARY | 2024-03-09 04:15 | XMS_ITS | Continuity of Care Document ---
Author [employer] Advertising [facility] Address [address] [facility] [place] [address] Phone Care Team Providers Care Beef Lugger Name Role Phone Tyrel King MD Unavailable Unavailable Procedures Procedure Date OFFICE/OUTPATIENT VISIT, EST VOID TICKET UPPR GI SCOPE DILATE STRICTR OFFICE/OUTPATIENT VISIT, EST UPPR GI ENDOSCOPY, DIAGNOSIS OFFICE/OUTPATIENT VISIT, EST DIAGNOSTIC COLONOSCOPY UPPR GI ENDOSCOPY, DIAGNOSIS OFFICE/OUTPATIENT VISIT, EST TELEHEALTH VISIT EST POSTOP FOLLOW-UP VISIT POSTOP FOLLOW-UP VISIT LAPARO PROC, HERNIA REPAIR UPPR GI ENDOSCOPY, DIAGNOSIS OFFICE/OUTPATIENT VISIT, EST OFFICE/OUTPATIENT VISIT, EST POSTOP FOLLOW-UP VISIT POSTOP FOLLOW-UP VISIT POSTOP FOLLOW-UP VISIT POSTOP FOLLOW-UP VISIT POSTOP FOLLOW-UP VISIT REVISE STOMACH-BOWEL FUSION REVISE STOMACH-BOWEL FUSION ASSIST OFFICE/OUTPATIENT VISIT, EST OFFICE/OUTPATIENT VISIT, EST UPPR GI SCOPE DILATE STRICTR OFFICE/OUTPATIENT VISIT, EST UPPR GI SCOPE DILATE STRICTR UPPR GI SCOPE DILATE STRICTR OFFICE/OUTPATIENT VISIT, EST OFFICE/OUTPATIENT VISIT, EST OFFICE/OUTPATIENT VISIT, EST UPPR GI SCOPE DILATE STRICTR DIAGNOSTIC COLONOSCOPY HOSPITAL DISCHARGE DAY POSTOP FOLLOW-UP VISIT POSTOP FOLLOW-UP VISIT POSTOP FOLLOW-UP VISIT Gastric Bypass LAP GASTRIC BYPASS/FRANNY-EN-Y OFFICE/OUTPATIENT VISIT, EST OFFICE/OUTPATIENT VISIT, NEW INITIAL INPATIENT CONSULT OBSERVATION ADMIT/DISCHARGE SAME DATE Oc INITIAL HOSPITAL CARE HOSPITAL DISCHARGE DAY Advance Directives Directive Yes / No Effective Date File Name No Information Encounters Encounter Description Practice Location Reason(s) For Visit Diagnoses Date Provider Providers Copied on Encounter OFFICE/OUTPAT IENT VISIT, [facility] [employer] [facility], [address] [place] [address] [place], [id number], [place] tel:[phone] [facility] No Information Christine Sarah. [address] [place] [address] [address], [place], [id number], [place]. tel:[phone] Referring Provider: Tyrel Diaz, [address] [place] [address] [address], [place], [address] . tel:[phone] [employer] [facility], [address] [place] [address] [address], [address], [id number], [place] tel:[phone] [facility] No Information Christine Sarah. [address] [place] [address] [address], [place], [address], [place]. tel:[phone] Referring Provider: Tyrel Diaz, [address], [place], [address] . tel:[phone] [employer] [facility], [address] [place] [address], [place], [id number], [place] tel:[phone] [facility] No Information Christine Sarah. [address], [place], [place], [address], [place]. tel:[phone] Referring Provider: Tyrel Diaz, [address], [place], [address] . tel:[phone] OFFICE/OUTPAT IENT VISIT, [employer] [facility], [address] [place] [address] [address], [place], [place], [address], [place] tel:[phone] [facility] No Information Christine Sarah. [address], [place], [place], [address], [place]. tel:[phone] Referring Provider: Tyrel Diaz, [address] [place] [address] [address], [place], [address] . tel:[phone] [employer] [facility], [address] [place] [address] [address], [place], [address], [place] tel:[phone] [facility] No Information Christine Sarah. [address], [place], [place], [address], [place]. tel:[phone] Referring Provider: Tyrel Diaz, [address] [place] [address] [address], [place], [address] . tel:[phone] OFFICE/OUTPAT IENT VISIT, [facility], [address] [place] [address] [address], [place], [place], [address], [place] tel:[phone] [facility] No Information Christine Sarah. [address], [place], [place], [address], [place]. tel:[phone] Referring Provider: Tyrel Diaz, [address], [place], [address] . tel:[phone] [employer] [facility], [address] [place] [address] [address], [place], [address], [place] tel:[phone] [facility] No Information Christine Sarah. [address], [place] [address], [place]. tel:[phone] Referring Provider: Tyrel Diaz, [facility] [address], [place], [address] . tel:[phone] OFFICE/OUTPAT IENT VISIT, [facility] [employer] [facility], [address] [place] [address] [address], [place], [address], [place] tel:[phone] [facility] No Information Christine Sarah. [facility] [address], [place], [place], [address], [place]. tel:[phone] Referring Provider: Tyrel Diaz, [address] [place] [address] [address], [place], [address] . tel:[phone] TELEHEALTH VISIT [facility] [employer] [facility], [address] [place] [address] [address], [place], [place], [address], [place] tel:[phone] [facility] No Information Christine Sarah. [address] [place] [address] [address], [place], [place], [address], [place]. tel:[phone] Referring Provider: Tyrel Diaz, [address] [place] [address] [address], [place], [address] . tel:[phone] [employer] [facility], [address] [place] [address] [address], [place], [place], [address], [place] tel:[phone] [facility] No Information Christine Sarah. [address] [place] [address] [address], [place], [place], [address], [place]. tel:[phone] Referring Provider: Tyrel Diaz, [address] [place] [address] [address], [place], [address] . tel:[phone] [employer] [facility], [address] [place] [address] [address], [place], [place], [address], [place] tel:[phone] [facility] No Information Christine Sarah. [address], [place], [address], [place]. tel:[phone] Referring Provider: Tyrel Diaz, [address], [place], [address] . tel:[phone] [employer] [facility], [address] [place] [address] [address], [place], [address], [place] tel:[phone] [facility] No Information Christine Sarah. [address], [place], [address], [place]. tel:[phone] Referring Provider: Tyrel Diaz, [facility] [address], [place], [address] . tel:[phone] OFFICE/OUTPAT IENT VISIT, [facility], [address] [place] [address] [address], [place], [address], [place] tel:[phone] [facility] No Information Christine Sarah. [address] [place] [address] [address], [place], [address], [place]. tel:[phone] Referring Provider: Tyrel Diaz, [facility] [address], [place], [address] . tel:[phone] OFFICE/OUTPAT IENT VISIT, [facility], [address] [place] [address] [address], [place], [address], [place] tel:[phone] [facility] No Information Christine Sarah. [address] [place] [address] [address], [place], [address], [place]. tel:[phone] Referring Provider: Tyrel Diaz, [facility] [address], [place], [address] . tel:[phone] [employer] [facility], [address] [place] [address] [address], [place], [place], [address], [place] tel:[phone] [facility] No Information Domo Mackenzie. [address], [place], [place], [address], [place]. tel:[phone] Referring Provider: Avril Oliveros, [address], [place], [address] . tel:[phone] [employer] [facility], [address] [place] [address] [address], [place], [place], [address], [place] tel:[phone] [facility] No Information Domo Mackenzie. [address], [place], [place], [address], [place]. tel:[phone] Referring Provider: Avril Oliveros, [facility] [address], [place], [address] . tel:[phone] [employer] [facility], [address] [place] [address] [address], [place], [place], [address], [place] tel:[phone] [facility] No Information Domo Mackenzie. [address], [place], [place], [address], [place]. tel:[phone] Referring Provider: Avril Oliveros, [facility] [address], [place], [address] . tel:[phone] [employer] [facility], [address] [place] [address] [address], [place], [place], [address], [place] tel:[phone] [facility] No Information Domo Mackenzie. [address], [place], [place], [address], [place]. tel:[phone] Referring Provider: Avril Oliveros, [facility] [address], [place], [address] . tel:[phone] [employer] [facility], [address] [place] [address] [address], [place], [address], [place] tel:[phone] [facility] No Information Domo Mackenzie. [address], [place], [place], [address], [place]. tel:[phone] Referring Provider: Avril Oliveros, [address], [place], [address] . tel:[phone] [employer] [facility], [address] [place] [address] [address], [place], [address], [place] tel:[phone] [facility] No Information Christine Sarah. [address], [place], [address], [place]. tel:[phone] Referring Provider: Tyrel Diaz, [address] [place] [address] [address], [place], [address] . tel:[phone] [employer] [facility], [address] [place] [address] [address], [place], [address], [place] tel:[phone] [facility] No Information Domo Mackenzie. [address], [place], [place], [address], [place]. tel:[phone] Referring Provider: Avril Oliveros, [facility] [address], [place], [address] . tel:[phone] OFFICE/OUTPAT IENT VISIT, [facility] [employer] [facility], [address] [place] [address] [address], [place], [place], [address], [place] tel:[phone] [facility] No Information Christine Sarah. [address] [address], [place], [place], [address], [place]. tel:[phone] Referring Provider: Tyrel Diaz, [address], [place], [address] . tel:[phone] OFFICE/OUTPAT IENT VISIT, [facility], [address] [place] [address] [address], [place], [place], [address], [place] tel:[phone] [facility] No Information Christine Sarah. [address], [place], [address], [place]. tel:[phone] Referring Provider: Tyrel Diaz, [address], [place], [address] . tel:[phone] [employer] [facility], [address] [place] [address] [address], [place], [place], [address], [place] tel:[phone] [facility] No Information Christine Sarah. [address], [place], [place], [address], [place]. tel:[phone] Referring Provider: Tyrel Diaz, [address], [place], [address] . tel:[phone] OFFICE/OUTPAT IENT VISIT, [facility] [employer] [facility], [address] [place] [address] [address], [place], [place], [address], [place] tel:[phone] [facility] No Information Christine Sarah. [address], [place], [place], [address], [place]. tel:[phone] Referring Provider: Tyrel Diaz, [address], [place], [address] . tel:[phone] [employer] [facility], [address] [place] [address] [address], [place], [address], [place] tel:[phone] [facility] No Information Christine Sarah. [address], [place], [place], [address], [place]. tel:[phone] Referring Provider: Tyrel Diaz, [address], [place], [address] . tel:[phone] [employer] [facility], [address] [place] [address] [address], [place], [address], [place] tel:[phone] [facility] No Information Christine Sarah. [address], [place], [place], [address], [place]. tel:[phone] Referring Provider: Tyrel Diaz, [address], [place], [address] . tel:[phone] OFFICE/OUTPAT IENT VISIT, [facility], [address] [place] [address] [address], [place], [address], [place] tel:[phone] [facility] No Information Christine Sarah. [address], [place], [place], [address], [place]. tel:[phone] Referring Provider: Tyrel Diaz, [address], [place], [address] . tel:[phone] OFFICE/OUTPAT IENT VISIT, [facility], [address] [place] [address] [address], [place], [place], [address], [place] tel:[phone] [facility] No Information Domo Mackenzie. [address], [place], [place], [address], [place]. tel:[phone] Referring Provider: Avril Oliveros, [address], [place], [address] . tel:[phone] OFFICE/OUTPAT IENT VISIT, [facility] [employer] [facility], [address] [place] [address] [address], [place], [address], [place] tel:[phone] [facility] No Information Domo Mackenzie. [address], [place], [place], [address], [place]. tel:[phone] Referring Provider: Avril Oliveros, [address], [place], [address] . tel:[phone] [employer] [facility], [address] [place] [address] [address], [place], [address], [place] tel:[phone] [facility] No Information Christine Sarah. [address], [place], [place], [address], [place]. tel:[phone] Referring Provider: Tyrel Diaz, [address], [place], [address] . tel:[phone] HOSPITAL DISCHARGE DAY [employer] [facility], [address], [place], [address], [place] tel:[phone] [facility] No Information No [employer] [facility], [address], [place], [address], [place] tel:[phone] [facility] No Information No [employer] [facility], [address], [place], [address], [place] tel:[phone] [facility] No Information No [employer] [facility], [address] [place] [address] [address], [place], [address], [place] tel:[phone] [facility] No Information No [employer] [facility], [address], [place], [address], [place] tel:[phone] [facility] No Information No [employer] [facility], [address], [place], [address], [place] tel:[phone] [facility] No Information Christine Sarah. [address] [place] [address] [address], [place], [address], [place]. tel:[phone] Referring Provider: Tyrel Diaz, [address], [place], [address] . tel:[phone] OFFICE/OUTPAT IENT VISIT, [facility] [employer] [facility], [address], [place], [address], [place] tel:[phone] [facility] No Information Christine Sarah. [address] [place] [address] [address], [place], [place], [address], [place]. tel:[phone] Referring Provider: Tyrel Diaz, [address], [place], [address] . tel:[phone] OFFICE/OUTPAT IENT VISIT, [facility], [address] [place] [address] [address], [place] [address], [address], tel:[phone] [facility] No Information Christine Sarah. [address], [place] [address], [address], [place]. tel:[phone] Referring Provider: Tyrel Diaz, [address] [place] [address] [address] [facility], [place], [address] . tel:[phone] INITIAL INPATIENT CONSULT [facility], [address] [place] [address] [address] , [place] [address], [address], [place] tel:[phone] [facility] No Information No Information OBSERVATION ADMIT/DISCHAR GE SAME DATE [facility], [address] [place] [address] [address], [place] [address], [address], [place] tel:[phone] [facility] No Information No Information INITIAL HOSPITAL CARE [facility], [address] [place] [address] [address] , [place] [address], [address], [place] tel:[phone] [facility] No Information Sonja Pablo. [address] [place], [place], [address], [place]. tel:[phone] Referring Provider: Samy Casillas, [address] [place], [address] . tel:[phone] Family History Family Member Type Diagnosis Age At Onset No Information Payers Payer name Insurance type Covered alliance party ID Authortootiea sudhir(s) [employer] CI [id number] Social History Type Description Quantity Date Captured Comments Sex Female Smoking Status No Information Chief Complaint And Reason For Visit No Information Reason For Referral Reason For Referral No Information History Of Present Illness Encounter Date Complaint History Of Prese nt Illness No Information Functional Status Date Functional Assessmen t No Information Instructions Date Instruction Additional Infor mation No Information Assessments Type Assessment Date No Information Patient Care Teams Name Effective Dates (start - stop) Status Members No Information
--- OUTSIDE RECORDS SUMMARY | 2025-04-11 03:30 | XMS_ITS ---
Author Organization The [facility] [place] Address [address] [place] [address] Care Team Providers Care Health And Physical Education Professor Name Role Phone Malachi Ledesma Primary Care Provider REASON FOR VISIT 1 MO F/U Encounters Encounter Location Date Provider Diagnosis [address] [address] 04/11/2025 Malachi Ledesma Plan Of Treatment No Information Progress Notes * Elvi MOORE LDOB:[birth year] (44 yo F)Acc No.[id number]:04/11/2025 UNLOCKED PROGRESS NOTE Progress Note Patient: Elvi MENDIOLA :?Yasir HuertasTTC), MDDOB:1980???Age: 44 Y???Sex:FemaleDate:04/11/2025Phone:[phone]:[address] [place], [place]-[id number] Subjective: * Chief Complaints: * 1 . 1 MO F/U. * Medical History: Objective: * Vitals: Assessment: Plan: * Treatment: * * Electronic signature of Malachi Ledesma MD, [id number] on 09/05/2025 at 07:48 AM EST Sign off status: PendingVisit Status:?N/S N/C (No Show/No Charge) * Provider: Gee HuertasTRUMBULL REGION[facility] MEDICAL CENTERMD Ernie Date: 0 04/11/2025 Generated for Printing/Faxing/eTransmitting on:?09/05/2025 07:48 AM EST
--- OUTSIDE RECORDS SUMMARY | 2025-08-23 08:30 | XMS_ITS | Encounter Summary ---
Author Organization [facility] Address [address] [place] [address] Care Team Providers Care Senior Research Fellow Name Role Phone Unallocated, Noms Provider Primary Care Provi luc Reason for Visit * Imaging (Routine) - ClosedSpecialtyDiagnoses / ProceduresReferred By Contact Referred To ContactRadiology Diagnoses Internal derangement of right knee Procedures MR knee right wo IV contrast Mando Villasenor, PA [address] [place] [address] Phone: tel: fax: [facility] [address] [facility] [address] [place] [address] Phone: tel: fax: Referral IDStatusReasonStart DateExpiration DateVisits RequestedVisits [id number]/4/20255/ Encounter Details DateTypeDepartmentCare Team (Latest Contact Info)Vivwuxaomxq79/13/2025 8:30 AM ESTAncillary Procedure [facility] [address] [facility] [facility] [address] [place] [address] Internal derangement of right knee Social History Tobacco UseTypesPacks/DayYears UsedDateSmoking Tobacco: NeverSmokeless Tobacco: NeverCommentsUnknownSex and Gender InformationValueDate RecordedSex Assigned at BirthNot on fileLegal VurIxtmpv31/15/2023 6:47 PM EDTGender Identity Not on fileSexual OrientationNot on filedocumented as of this encounter Plan of Treatment DateTypeDepartmentCare Team (Latest Contact Info)Fujshvfwoha47/02/2025 10:00 AM ESTOffice Visit [facility] [address] [facility] [place] [phone] Jr. Horacio Thacker, DO [address] [facility] [place] [address] 03/21/2026 9:00 AM EDTOffice Visit [facility] [address] [place] [phone] Eduardo Freedman, DO [address] [place], [place] [phone] documented as of this encounter Procedures Procedure NamePriorityDate/TimeAssociated DiagnosisCommentsMR KNEE RIGHT WO IV RYTIBBWRSonffer29/13/2025 9:14 AM EST Internal derangement of right knee documented in this encounter Results * MR knee right wo IV contrast (08/23/2025 9:14 AM EST)Anatomical Region LateralityModalityLower Extremities, KneeRightMagnetic ResonanceSpecimen (Source)Anatomical Location / LateralityCollection Method / VolumeCollection TimeReceived Time08/24/2025 10:51 AM EST Impressions 08/24/2025 10:56 AM EST Intact menisci and ligaments. Degenerative changes as discussed. ELECTRONICALLY SIGNED BY: Kevin Sprague MD Narrative 08/24/2025 10:56 AM EST EXAMINATION/TECHNIQUE: MR KNEE RIGHT WO IV CONTRAST HISTORY: ?? Right knee pain. History of prior arthroscopy. COMPARISON: Radiographs 08/14/2025. MRI 12/02/2017. RESULT: MENISCI: Medial Meniscus: ??Intact Lateral Meniscus: ??Intact LIGAMENTS: ACL, PCL, MCL, and LCL complex intact. CARTILAGE: Mild to large areas of full-thickness chondral loss involving the patella. Small areas of partial-thickness chondral loss involving the trochlea. Small areas of mostly low-grade partial-thickness chondral loss/fissuring in the medial and lateral compartments. Small osteophytes. TENDONS: Distal quadriceps intact. Patellar tendon intact. Popliteus intact. BONES AND MARROW: ??No evidence of fracture or bone marrow replacing process. Tiny benign cystic lesion proximal tibia, probably small enchondroma, and unchanged from 2018. MUSCLES: ??Muscle bulk and signal intensity are normal. JOINT FLUID AND SYNOVIUM: Small joint effusion. No synovitis. No Alves's cyst. OTHER: ??No other significant abnormality. ?? Procedure Note Kevin Sprague MD - 08/24/2025 EXAMINATION/TECHNIQUE: MR KNEE RIGHT WO IV CONTRAST HISTORY: Right knee pain. History of prior arthroscopy. COMPARISON: Radiographs 08/14/2025. MRI 12/02/2017. RESULT: MENISCI: Medial Meniscus: Intact Lateral Meniscus: Intact LIGAMENTS: ACL, PCL, MCL, and LCL complex intact. CARTILAGE: Mild to large areas of full-thickness chondral loss involvingthe patella. Small areas of partial-thickness chondral loss involving thetrochlea. Small areas of mostly low-grade partial-thickness chondralloss/fissuring in the medial and lateral compartments. Smallosteophytes. TENDONS: Distal quadriceps intact. Patellar tendon intact. Popliteusintact. BONES AND MARROW: No evidence of fracture or bone marrow replacingprocess. Tiny benign cystic lesion proximal tibia, probably smallenchondroma, and unchanged from 2018. MUSCLES: Muscle bulk and signal intensity are normal. JOINT FLUID AND SYNOVIUM: Small joint effusion. No synovitis. No Alves'scyst. OTHER: No other significant abnormality. IMPRESSION: Intact menisci and ligaments. Degenerative changes as discussed. ELECTRONICALLY SIGNED BY: Kevin Sprague MD Authorizing ProviderResult TypeResult StatusMatthew Barb Villasenor [facility] MRI PROCEDURES Final Result documented in this encounter Visit Diagnoses Diagnosis Internal derangement of right knee documented in this encounter Care Teams Team MemberRelationshipSpecialtyStart DateEnd Date Unallocated, Noms Barbara, [address] [place] [address] PCP - GeneralFamily Dhmbslpc65/3/25documented as of this encounter
--- OUTSIDE RECORDS SUMMARY | 2025-09-05 07:49 | XMS_ITS | Clinical Summary ---
Author Organization [facility] Address [address] [place] [address] Care Team Providers Care Anesthesiology Physician Name Role Phone Unallocated, Noms Provider Primary Care Provi luc Allergies Active AllergyReactionsCriticalityNoted YxpwIngdfigiVhkcexns53/31/2021Ketorolac Rash,Shortness of xtjqvyCiwy87/19/2015 Other Reaction(s): Unknown Ketorolac NmdfaumjeaduVhfcQro65/12/2015 Other Reaction(s): Other (See Comments) QiqiquwsrrQaxyEqv16/22/2013 Other Reaction(s): Other (See Comments) Other reaction(s): Unknown Meperidine DrwFknxLkt76/09/2025 Other Reaction(s): Unknown AxmlckgecpctoddmTwasmyqrtgykuoQye84/04/2023 Medications MedicationSigDispense QuantityRefillsLast FilledStart DateEnd DateStatus acetaminophen (Tylenol) 500 MG tablet 1,000 mg every 4 (four) hours if neededActive tiZANidine (Zanaflex) 4 MG tablet 2 capsules Orally Q HS for 30 daysActive pregabalin (Lyrica) 75 MG capsule Take 75 mg by mouth in the morning and 75 mg at noon and 75 mg in the evening and 75 mg before bedtime.5Active pantoprazole (ProtoNix) 40 MG [...] MG disintegrating tablet every 6 (six) hours09/06/2024ctive HYDROcodone-acetaminophen (Canyon) 7.5-325 MG tablet Take 1 tablet by mouth every 8 (eight) hours if wcbumf99 cephalexin (Keflex) 500 MG capsule Take 500 mg by mouth in the morning and 500 mg at noon and 500 mg in the evening and 500 mg before bedtime.Expired Active Problems No known active problems Encounters DateTypeDepartmentCare HbehXydtaydykvt42/14/2025Results Follow-Up [facility] [address] [place], [place] [address] [phone] Mando Vlilasenor PA MR knee right wo IV oywhobmc61/13/2025 8:30 AM ESTAncillary Procedure [facility] [address] [facility] [address] [place] [address] Internal derangement of right knee08/23/20250003Khsvzh28/04/2025 10:25 AM EST Ancillary Procedure [address] [phone] 08/14/2025 10:15 AM ESTOffice Visit [address] [phone] Mando Villasenor PA Acute pain of right knee (Primary Dx); Internal derangement of right knee08/14/2025Telephone [facility] [address] [place], [place] [address] [phone] Mando Villasenor PA Patient returning our call about a card for her device?08/14/2025amboo flowsheet [address] [place] [address] [place] [phone] Mando Villasenor PA 08/14/2025Travelfrom Last 3 Months Social History Tobacco UseTypesPacks/DayYears UsedDateSmoking Tobacco: NeverSmokeless Tobacco: Never Tobacco Cessation:Counseling Given: Not Answered CommentsUnknownSex and Gender InformationValueDate RecordedSex Assigned at BirthNot on fileLegal IivVommae75/15/2023 6:47 PM EDTGender IdentityNot on fileSexual OrientationNot on file Last Filed Vital Signs Vital SignReadingTime TakenCommentsBlood Rqpifaky989/72003/19/2025 4:20 PM EDT Pulse--Temperature--Respiratory Rate--Oxygen Saturation--Inhaled Oxygen Concentration--Jwmsla16.6 kg (160 lb)08/14/2025 10:17 AM DFJIuuqyk079.6 cm (5' 6 )08/14/2025 10:17 AM ESTBody Mass Index25.8208/14/2025 10:17 AM EST Plan of Treatment DateTypeDepartmentCare Team (Latest Contact Info)Jksqpurcbdi92/02/2025 10:00 AM ESTOffice Visit [facility] [address] [facility] [place] [address] Jr. Horacio Thacker, [address] [address] 03/21/2026 9:00 AM EDTOffice Visit JETHRO ROSADO [address] [place] [address] Eduardo Freedman [address] [place] [address] Health MaintenanceDue DateLast ShusEnqnkyfmCdvqukfaq68/22/2022COVID-19 Vaccine ( season), 10/08/2021, 01/30/2021, Additional history existsInfluenza Vaccine (#1)/, 07/11/2020, 07/03/2020, Additional history existsCervical Cancer Tqhudummd68/09/2030 HPV/Uxuscw4103/19/2030Pap Smear06/09/Pneumococcal Vaccine: Pediatrics (0 to 5 Years) and At-Risk Patients (6 to 64 Years)Aged OutNo longer eligible based on patient's age to complete this topic Procedures Procedure NamePriorityDate/TimeAssociated DiagnosisCommentsMR KNEE RIGHT WO IV KLBXQIITMdxwqnu34/13/2025 9:14 AM EST Internal derangement of right knee XR KNEE 1-2 VIEWS OAWMDVwckafh89/04/2025 10:22 AM EST Acute pain of right knee PAP SQSGKQvvozbq90/09/2025 12:00 AM EDTfrom Last 3 Months or Most Recently Relevant to Health Maintenance Results * MR knee right wo IV [...] Sprague MD Authorizing ProviderResult TypeResult StatusMatthew Barb [facility] MRI PROCEDURES Final Result * XR knee 1 or 2 views [...] Most Recently Relevant to Health Maintenance Insurance Care Teams Team MemberRelationshipSpecialtyStart DateEnd Date Unallocated, Noms MD Barbara [address] [place] [address] PCP - GeneralFamily Gjnxylmv31/3/25
--- OUTSIDE RECORDS SUMMARY | 2025-09-05 07:49 | XMS_ITS | Clinical Summary ---
Author Organization [employer] [facility] Address [id number] [address] [place] [address] Care Team Providers Care Hand Stone Polisher Name Role Phone Yasir Ledesma MD Primary Care Provider [phone] Allergies Active AllergyReactionsCriticalityNoted FrwzPmwoqmvbMqumppcmrqeufbtt83/04/2023 NmrowzeznzVvzuCei45/30/2959Pfkdqwzh23/31/2021Ketorolac TromethamineRashLow 04/09/2017 Medications MedicationSigDispense QuantityRefillsLast FilledStart DateEnd DateStatus dodoeeus-zydz-VU-calcium &mins (THERAGRAN-M) 9 mg iron-400 mcg tablet [...] for up to 10 doses. 10 tablet 08/10/2023ctive HYDROcodone-acetaminophen (NORCO) 5-325 mg per tablet Take [...] all this for 10 days. 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 S/P gastric fwnopv7506/15/2018Easy kbfyszwy16/05/5213Anokghfoc92/21/2018 Overview (03/29/2018): Passed kidney stone 3 mm [...] oxybutynin for overactive bladder symptoms Encounters DateTypeDepartmentCare LbjfHstpyffeztw24/04/2025Results Follow-Up [facility] [address] [place] [phone] Carmela Scott RN Urine Culture Urine, Clean Catch Huneoicwo25/02/2025 9:59 PM EST - 08/13/2025 1:15 AM ESTEmergency [facility] [address] [place] [phone] Merlin Rutledge MD Left flank pain (Primary Dx); Abnormal finding on urinalysis Discharge Disposition: Home08/12/2025Travelfrom Last 3 Months Family History Medical HistoryRelationNameCommentsPlatelet Function DefectDaughterVon Willebrand diseaseDaughterCancerFatherbrainDiabetesFatherDiabetes type IIFather Early deathFatherHypertensionFatherStrokeFatherHypertensionMotherMenorrhagia MotherEpistaxisSonRelationNameStatusCommentsBrotherAliveDaughterFatherDeceased MotherAliveSisterAliveSon Social History Tobacco UseTypesPacks/DayYears UsedDateSmoking Tobacco: NshwwvQgbsbykbax866 10/19/2000 - 10/19/2015Smokeless Tobacco: Never Tobacco Cessation:Counseling Given: Not Answered Alcohol UseStandard Drinks/WeekCommentsNo0 (1 standard drink = 0.6 oz pure alcohol)PHQ-2AnswerDate RecordedTotal Jatka649ChildcareAnswerDate YahqcqluYswccxacpXxqnosy70/12/2019EmploymentAnswerDate RecordedEmploymentUnknown 03/22/2019Hunger ScreeningAnswerDate RecordedWithin the past 12 months we worried whether our food would run out before we got money to buy more.Never True08/12/2025Within the past 12 months the food we bought just didn't last and we didn't have money to get more.Never True08/12/2025Purpose - LifeAnswerDate RecordedPurpose and direction in jeqeIdeerra08/11/2021CommentsNoSex and Gender InformationValueDate RecordedSex Assigned at BirthNot on fileLegal Sex Xzgjhz7305/16/2015 11:21 AM EDTGender IdentityNot on fileSexual OrientationNot on fileOccupationIndustryJob Start DateJob End Datefull timeNot on fileNot on file Not on file Last Filed Vital Signs Vital SignReadingTime TakenCommentsBlood Umnxxosy402/8908/13/2025 1:02 AM EST Asuos0658/03/2025 1:02 AM MJBDzncuucbauj53.9 ??C (98.4 ??F)08/12/2025 10:02 PM ESTRespiratory Wfkx511210/13/2024 1:02 AM ESTOxygen Pocsqouxtq97%08/13/2025 1:02 AM ESTInhaled Oxygen Concentration--Nqxovz13.8 kg (165 lb)08/12/2025 10:02 PM JIIIrnhnw222.6 cm (5' 6 )08/12/2025 10:02 PM ESTBody Mass Index26.6308/12/2025 10:02 PM EST Plan of Treatment Health MaintenanceDue DateLast DoneCommentsDepression Ndxehscpp85/22/1994Adult BMI Follow Up Plan12/31/1999DTaP,Tdap and Td Vaccines (2 - Td or Tdap)07/10/2021 07/10/2011COVID-19 Vaccine ( season), 10/08/2021, 01/30/2021, Additional history existsInfluenza Dqzbuqb66, 07/11/2020, 07/03/2020, Additional history existsAdult BMI Onzccktda07/02/2026 08/12/2025Tobacco Yonuyrkrm89Pap FxtjlWnhsyhfcrnkj62/09/2025 Medical Devices Not on file Procedures Procedure NamePriorityDate/TimeAssociated DiagnosisCommentsCT ABDOMEN AND PELVIS WO KQYDEFPP39/02/2025 11:08 PM EST ER EXTRA URINE LSXGQGHOAP56/02/2025 10:37 PM EST ER EXTRA URINE FRGQXGAQECO76/02/2025 10:37 PM EST ER EXTRA ADQVQAKCJ48/02/2025 10:37 PM EST URINE CULTURESTAT Add-on08/12/2025 10:37 PM EST POCT , URINE (NUCG)Daeijib0908/12/2025 10:34 PM EST POCT NURSING URINE MACROSCOPIC UCXaefxvp19/02/2025 10:33 PM EST LOTVCUDAAE67/02/2025 10:31 PM EST COMPREHENSIVE METABOLIC DGWRNXLTT29/02/2025 10:31 PM EST CBC WITH AUTO OBLGRHBLQSFXGCFS92/02/2025 10:31 PM EST EXTRA TUBES SST TCHGyhhejt25/02/2025 10:30 PM EST EXTRA TUBES BLUE NSKDemcmyj17/02/2025 10:30 PM EST EXTRA QNCJALafrpfn84/02/2025 10:30 PM EST from Last 3 Months [...] 11:52 PM Authorizing ProviderResult TypeResult Gavin Rutledge MDNOR[facility]WE[facility] ORDERABLES Final Result * Extra Urine Sparks (08/12/2025 10:37 PM EST)ComponentValueRef RangeTest Method Analysis TimePerformed AtPathologist SignatureExtra TubeAuto Resulted 08/13/2025 12:03 AM ESTPROMEDICA SAINT ELIZABETH COMMUNITY HOSPITALpecimen (Source) Anatomical Location / LateralityCollection Method / VolumeCollection Time Received TimeUrineUrine specimen collection, clean catch / Giaqjhn1108/12/2025 10:37 PM EST08/12/2025 10:43 PM EST Narrative Authorizing ProviderResult TypeResult StatusMerlin VALENTIN ORDERABLES Final ResultPerforming OrganizationAddHospital of the University of Pennsylvaniaty/State/ZIP CodePhone Number [address] [place] [address], * Extra Urine Culture (08/12/2025 10:37 PM EST)ComponentValueRef RangeTest MethodAnalysis TimePerformed AtPathologist SignatureExtra TubeAuto Resulted 08/13/2025 12:03 AM [facility] (Source) Anatomical Location / LateralityCollection Method / VolumeCollection Time Received TimeUrineUrine specimen collection, clean catch / Xvqrkww7108/12/2025 10:37 PM EST08/12/2025 10:43 PM EST Narrative Authorizing ProviderResult TypeResult StatusMerlin VALENTIN ORDERABLES Final ResultPerforming OrganizationAddressty/State/ZIP CodePhone Number [address] [place] [address], [place] * Extra Urine (08/12/2025 10:37 PM EST)ComponentValueRef RangeTest Method Analysis TimePerformed AtPathologist SignatureExtra TubeAuto Resulted 08/13/2025 12:03 AM [facility] (Source) Anatomical Location / LateralityCollection Method / VolumeCollection Time Received TimeUrineUrine specimen collection, clean catch / Iuaishi5608/12/2025 10:37 PM EST08/12/2025 10:43 PM EST Narrative Authorizing ProviderResult TypeResult StatusMerlin VALENTIN ORDERABLES Final ResultPerforming OrganizationAddHospital of the University of Pennsylvaniaty/State/ZIP CodePhone Number [address] [place] [address], [place] * Urine Culture Urine, Clean Catch Midstream (08/12/2025 10:37 PM EST)Component ValueRef RangeTest MethodAnalysis TimePerformed AtPathologist SignatureCULTURE BFQDXVY25-67,000 ORGANISMS/mL NORMAL UROGENITAL FLORA08/14/2025 7:44 AM EST [facility] LABORATORYSpecimen (Source)Anatomical Location / LateralityCollection Method / VolumeCollection TimeReceived TimeUrineUrine specimen collection, clean catch / Jbapnij5108/12/2025 10:37 PM EST08/12/2025 10:43 PM EST Narrative Authorizing ProviderResult TypeResult StatusMerlin Rutledge MDMICROBIOLOGY - GENERAL ORDERABLESFinal ResultPerforming OrganizationAddressCity/State/ZIP Code Phone Number [facility] [address] [place] [address], [place] [phone] * POCT , urine (08/12/2025 10:34 PM EST)ComponentValueRef RangeTest MethodAnalysis TimePerformed AtPathologist SignaturePO Urine NegativeNegative, Ruoykvyzvedry66/02/2025 10:42 PM ESTADAMS COUNTY REGIONAL MEDICAL CENTERpecimen (Source)Anatomical Location / LateralityCollection Method / VolumeCollection TimeReceived BabuWdyvu75/02/2025 10:34 PM EST 08/12/2025 10:42 PM EST Narrative Authorizing ProviderResult TypeResult StatusMerlin Rutledge MDPOINT OF CARE TEST ORDERABLESFinal ResultPerforming OrganizationAddressCity/State/ZIP CodePhone Number [facility] [address] [place] [address], [place] * (ABNORMAL) POCT Nursing Urine Macroscopic UA (08/12/2025 10:33 PM EST) ComponentValueRef RangeTest MethodAnalysis TimePerformed AtPathologist [facility] Urine Specific Gravity1.0201.010, 1.015, 1.020, 1.3328508/12/2025 10:36 PM ESTPROMEDIDOWNEY REGIONAL [facility] Urine Leukocyte Esterase Small(A)Rloiqhtu72/02/2025 10:36 PM ESTPROM[facility] Urine EuluodoFppyojteKgzkrnkp01/02/2025 10:36 PM ESTPROM[facility]IDOWNEY REGIONAL [facility] Urine pH8.55.0, 6.0, 6.5, 7.0, 7.5, 8.0, 8.5, 5. 10:36 PM ESTPROMEDIDOWNEY REGIONAL [facility] Urine ProteinTrace(A)Negative 08/12/2025 10:36 PM ESTPROMEDIDOWNEY REGIONAL MED[facility]ENTER Urine Glucose ItrrwctxPwuasgzm72/02/2025 10:36 PM ESTPROKINDRED [facility]OSPITAL Urine GkunndvYvdswjvgJdzbovoh03/02/2025 10:36 PM ESTWVUMEDICINE [facility] Urine Urobilinogen2.0 E.U./dL08/12/2025 10:36 PM ESTPROKINDRED HOSPITAL Urine ModktjhheVypopxoxVapantvr93/02/2025 10:36 PM ESTWVUMEDICINE HARRISON [facility] Urine Blood/HGBLarge(A)Negative 08/12/2025 10:36 PM ESTADAMS COUNTY REGIONAL MEDICAL CENTERpecimen (Source) Anatomical Location / LateralityCollection Method / VolumeCollection Time Received IbaxXyabq28/02/2025 10:33 PM EST08/12/2025 10:36 PM EST Narrative Authorizing ProviderResult TypeResult StatusMerlin Rutledge MDPOINT OF CARE TEST ORDERABLESFinal ResultPerforming OrganizationAddressCity/State/ZIP CodePhone Number [facility] [address] * (ABNORMAL) CBC auto differential (08/12/2025 10:31 PM EST)ComponentValueRef RangeTest MethodAnalysis TimePerformed AtPathologist SignatureWBC7.84 - 11 x10E9/L110/12/2024 10:43 PM [facility] SOUTHRBC Count4.80 3.8 - 5.2 X10E12/L110/12/2024 10:43 PM [facility] S[facility]TH Ujibuiupvl97.911.7 - 15.5 g/dL08/12/2025 10:43 PM ESTSELECT MEDICAL SPECIALTY HOSPITAL - COLUMBUSHematocrit36.935 - 47 %08/12/2025 10:43 PM [facility] SOUTHMCV77(L)80 - 100 fL08/12/2025 10:43 PM ESTSELECT MEDICAL SPECIALTY HOSPITAL - COLUMBUSMCH24.8(L)27 - 34 pg08/12/2025 10:43 PM [facility] SOUTHMCHC32.232 - 36 g/dL08/12/2025 10:43 PM [facility] SOUTHRDW16.1(H)11.5 - 15 %08/12/2025 10:43 PM ESTSELECT MEDICAL SPECIALTY HOSPITAL - COLUMBUSPlatelet Ebvac373019 - 450 X10E9/L110/12/2024 10:43 PM ESTSELECT MEDICAL SPECIALTY HOSPITAL - COLUMBUSMPV8.07 - 12 fL08/12/2025 10:43 PM EST [facility]UMBUSNeutrophils %55.7%08/12/2025 10:43 PM EST [facility] COLUMBUSLymphocytes %34.5%08/12/2025 10:43 PM EST [facility]BUSMonocytes %8.9%08/12/2025 10:43 PM EST [facility] COLUMBUSEosinophils %0.6%08/12/2025 10:43 PM EST [facility]BUSBasophils %0.3%08/12/2025 10:43 PM EST [facility] COLUMBUSNeutrophils Absolute (A)4.41.5 - 6.6 10*3/uL08/12/2025 10:43 PM ESTSELECT MEDICAL SPECIALTY HOSPITAL - COLUMBUSLymphocytes Absolute2.71.0 - 3.5 10*3/uL08/12/2025 10:43 PM ESTPROPLUMAS DISTRICT HOSPITALMonocytes Absolute0.70.0 - 0.9 10*3/uL08/12/2025 10:43 PM [facility] SOUTHEosinophils Absolute0.00.0 - 0.4 10*3/uL08/12/2025 10:43 PM ESTPROPLUMAS DISTRICT HOSPITALBasophils Absolute0.00.0 - 0.2 10*3/uL08/12/2025 10:43 PM [facility] SOUTHDifferential TypeAUTOMATED XUZMNPBPQXRY35/02/2025 10:43 PM [facility]pecimen (Source)Anatomical Location / LateralityCollection Method / VolumeCollection TimeReceived TimeBloodVenous blood / UnknownVenipuncture / Ikslnok4208/12/2025 10:31 PM EST11/11/2024 10:35 PM EST Narrative Authorizing ProviderResult TypeResult StatusMerlin WILHELM BLOOD ORDERABLESFinal ResultPerforming OrganizationAddressty/State/ZIP CodePhone Number [address] [address], * (ABNORMAL) Lipase (08/12/2025 10:31 PM EST)ComponentValueRef RangeTest Method Analysis TimePerformed AtPathologist JyiqahzvzVIHEWU32(H)17 - 40 U/L110/12/2024 10:51 PM ESTPROKAISER FOUNDATION HOSPITALpecimen (Source)Anatomical Location / LateralityCollection Method / VolumeCollection TimeReceived Time BloodVenous blood / UnknownVenipuncture / Rqnhyeq9808/12/2025 10:31 PM EST 08/12/2025 10:34 PM EST Narrative Authorizing ProviderResult TypeResult StatusMerlin WILHELM BLOOD ORDERABLESFinal ResultPerforming OrganizationAddressty/State/ZIP CodePhone Number [address] [address], [place] * (ABNORMAL) Comprehensive metabolic panel (08/12/2025 10:31 PM EST)Component ValueRef RangeTest MethodAnalysis TimePerformed AtPathologist SignatureSODIUM 328763 - 146 mmol/L110/12/2024 10:54 PM [facility] SOUTH POTASSIUM3.93.5 - 5.0 mmol/L110/12/2024 10:54 PM ESTSELECT MEDICAL SPECIALTY HOSPITAL - COLUMBUSCHLORIDE10098 - 109 mmol/L110/12/2024 10:54 PM ESTPROPLUMAS DISTRICT HOSPITALCARBON JPAMQZX0382 - 32 mmol/L110/12/2024 10:54 PM EST [facility] COL[facility]BUSANION SPA109 - 15 mmol/L110/12/2024 10:54 PM ESTPROPLUMAS DISTRICT HOSPITALBLOOD UREA QCMAMOOW330 - 23 mg/dL 08/12/2025 10:54 PM ESTSELECT MEDICAL SPECIALTY HOSPITAL - COLUMBUSCREATININE0.700.40 - 1.00 mg/dL08/12/2025 10:54 PM [facility] SOUTHComment: METHOD TRACEABLE TO IDMS WKJDFXYOPPRYSDG2215 - 99 mg/dL08/12/2025 10:54 PM EST [facility] COLUMBUSCALCIUM9.28.5 - 10.5 mg/dL08/12/2025 10:54 PM [facility] SOUTHTOTAL PROTEIN8.2(H)6.0 - 8.0 g/dL 08/12/2025 10:54 PM ESTSELECT MEDICAL SPECIALTY HOSPITAL - COLUMBUSALBUMIN4.43.2 - 5.3 g/dL08/12/2025 10:54 PM [facility] SOUTHALKALINE HLUUUFRFQYI0719 - 130 U/L110/12/2024 10:54 PM [facility] SOUTHAST19<=41 U/L110/12/2024 10:54 PM ESTSELECT MEDICAL SPECIALTY HOSPITAL - COLUMBUSALT15<=31 U/L110/12/2024 10:54 PM [facility] SOUTHBILIRUBIN,TOTAL0.30.3 - 1.2 mg/dL08/12/2025 10:54 PM [facility] SOUTHEGFR Non-Race Dependent>90>=60 ml/min/1.73sq.m 08/12/2025 10:54 PM [facility] SOUTHComment: eGFR not reported due to non-numeric value for Creatinine. Reported eGFR is based on the CKD-EPI 2020 equation that does not use a race coefficient. Specimen (Source)Anatomical Location / LateralityCollection Method / Volume Collection TimeReceived TimeBloodVenous blood / UnknownVenipuncture / Unknown 08/12/2025 10:31 PM EST08/12/2025 10:34 PM EST Narrative Authorizing ProviderResult TypeResult StatusMerlin WILHELM BLOOD ORDERABLESFinal ResultPerforming OrganizationAddressCity/State/ZIP CodePhone Number [facility] [address] [facility] [place] [address], * SST TOP (08/12/2025 10:30 PM EST)ComponentValueRef RangeTest MethodAnalysis TimePerformed AtPathologist SignatureExtra TubeAuto Hgpbjurw19/03/2025 12:03 AM [facility] (Source)Anatomical Location / LateralityCollection Method / VolumeCollection TimeReceived TimeBloodVenous blood / Kkwrrgc1708/12/2025 10:30 PM EST08/12/2025 10:35 PM EST Narrative Authorizing ProviderResult TypeResult StatusMerlin Rutledge MDLAB BLOOD ORDERABLESFinal ResultPerforming OrganizationAddressCity/State/ZIP CodePhone Number [address] [address] * Light Blue Top (08/12/2025 10:30 PM EST)ComponentValueRef RangeTest Method Analysis TimePerformed AtPathologist SignatureExtra TubeAuto Resulted 08/13/2025 12:03 AM [facility] (Source) Anatomical Location / LateralityCollection Method / VolumeCollection Time Received TimeBloodVenous blood / Lffoopr9808/12/2025 10:30 PM EST08/12/2025 10:35 PM EST Narrative Authorizing ProviderResult TypeResult StatusMerlin WILHELM BLOOD ORDERABLESFinal ResultPerforming OrganizationAddressty/State/ZIP CodePhone Number [address] from Last 3 Months Insurance Advance Directives * Full Code (Latest Code Status on File) Date ActivatedDate InactivatedComments4/12/2024 2:55 PM01/11/2025 7:41 PM Care Teams Team MemberRelationshipSpecialtyStart DateEnd Yasir Ledesma MD [facility]01/11/25
--- OUTSIDE RECORDS SUMMARY | 2025-09-05 07:49 | XMS_ITS | Encounter Summary ---
Author Organization [facility] Address [address] [place] [address] Care Team Providers Care Cloud Security Architect Name Role Phone Yasir Ledesma MD Primary Care Provider [phone] Tyrel King MD Unavailable Encounter Details DateTypeDepartmentCare Team (Latest Contact Info)Dnuakvevfza47/12/2025Orders Only [facility] [address] [address] Alaina King CNP [address] [place], [place] [id number] Social History Tobacco UseTypesPacks/DayYears UsedDateSmoking Tobacco: FormerCigarettesQuit: 12/18/1997Passive Smoke Exposure: CurrentSmokeless Tobacco: NeverAlcohol Use Standard Drinks/WeekCommentsNever0 (1 standard drink = 0.6 oz pure alcohol)[facility] UtilitiesAnswerDate RecordedIn the past 12 months has the electric, gas, oil, or water company threatened to shut off services in your home?No12/25/2024 Humiliation, Afraid, Rape, and Kick questionnaireAnswerDate RecordedWithin the last year, have you been afraid of your partner or ex-partner?No07/24/2025 Emotionally AbusedNot on file07/24/2025Physically AbusedNot on file07/24/2025 Sexually AbusedNot on file07/24/2025Social Connection and Isolation PanelAnswer Date RecordedIn a typical week, how many times do you talk on the phone with family, friends, or neighbors?More than three times a week08/13/2022How often do you get together with friends or relatives?Once a week08/13/2022How often do you attend lutheran or islam services?More than 4 times per year08/13/2022o you belong to any clubs or organizations such as lutheran groups, unions, fraternal or athletic groups, or school groups?Yes08/13/2022How often do you attend meetings of the clubs or organizations you belong to?More than 4 times per year08/13/2022 Are you , , , , never , or living with a partner?Yodhesj6408/13/2022UDIT-CAnswerDate RecordedQ1: How often do you have a drink containing alcohol?Never08/13/2022Q2: How many drinks containing alcohol do you have on a typical day when you are drinking?Patient does not drink 08/13/2022Q3: How often do you have six or more drinks on one occasion?Never 08/13/2022verall Financial Resource Strain (CARDIA)AnswerDate RecordedHow hard is it for you to pay for the very basics like food, housing, medical care, and heating?Not hard at all07/24/2025PHQ-2AnswerDate RecordedPatient Health Questionnaire-2 Boxis818[facility] [place] of Occupational Health - Occupational Stress QuestionnaireAnswerDate RecordedDo you feel stress - tense, restless, nervous, or anxious, or unable to sleep at night because yourmind is troubled all the time - these days?Not at all08/13/2022Exercise Vital SignAnswer Date RecordedOn average, how many days per week do you engage in moderate to strenuous exercise (like a brisk walk)?1 day08/13/2022n average, how many minutes do you engage in exercise at this level?20 min08/13/2022UT Safety & EnvironmentAnswerDate RecordedWithin the last year, have you been afraid of your partner or ex-partner?No12/24/2023Within the last year, have you been humiliated or emotionally abused in other ways by your partner or ex-partner?No12/24/2023 Within the last year, have you been kicked, hit, slapped, or otherwise physically hurt by your partner or ex-partner?No12/24/2023Within the last year, have you been raped or forced to have any kind of sexual activity by your part ner or ex-partner?No12/24/2023In the past year have you been physically or sexually abused?Unrecognized value12/24/2023TransportationAnswerDate RecordedIn the past 12 months, has lack of transportation kept you from medical appointments or from getting medications?No07/24/2025Lack of Transportation (Non-Medical)Not on file07/24/2025Housing Stability Vital SignAnswerDate RecordedIn the last 12 months, was there a time when you were not able to pay the mortgage or rent on time?No07/24/2025Number of Times Moved in the Last Year Not on file07/24/2025t any time in the past 12 months, were you homeless or living in a longterm (including now)?No07/24/2025Hunger Vital SignAnswerDate RecordedWithin the past 12 months, you worried that your food would run out before you got the money to buymore.Never true07/24/2025Ran Out of Food in the Last YearNot on file07/24/2025CommentsNoSex and Gender InformationValue Date RecordedSex Assigned at HkurpJgxsap42/09/2024 8:01 AM EDTLegal SexFemale 04/09/2022 12:08 AM EDTGender GrovahcpYhrvnx57/09/2024 8:01 AM EDTSexual OrientationDon't know07/19/2024 8:01 AM EDTdocumented as of this encounter Plan of Treatment DateTypeDepartmentCare Team (Latest Contact Info)Naativarwpn13/06/2026 8:00 AM ESTFollow-Up [facility] [address] [place] [address] [place] [address] Alaina King CNP [address] [place] [address] [place] [address] documented as of this encounter Visit Diagnoses Not on filedocumented in this encounter Care Teams Team MemberRelationshipSpecialtyStart DateEnd Date Yasir Ledesma MD [address] [facility] [address] [address] PCP - General05/26/22 Tyrel King MD [address] [place], [place] Referring PhysicianGeriatric Medicine11/03/22documented as of this encounter
--- OUTSIDE RECORDS SUMMARY | 2025-09-05 07:49 | XMS_ITS | Encounter Summary ---
Author Organization [facility] Address [address] [place] [address] Care Team Providers Care Vacuum Conditioner Operator Name Role Phone Yasir Ledesma MD Primary Care Provider [phone] Tyrel King MD Unavailable Reason for Visit * ReasonOnset DateCommentsMed Kungrn1308/22/2025 Encounter Details DateTypeDepartmentCare Team (Latest Contact Info)Tbljjhpadgg72/12/2025Refill [facility] [address] [place] [address] Alaina King CNP [address] [place] [id number] Chronic, continuous use of opioids; Complex regional pain syndrome type 1 of left lower extremity; Presence of neurostimulator Social History Tobacco UseTypesPacks/DayYears UsedDateSmoking Tobacco: FormerCigarettesQuit: 12/18/1997Passive Smoke Exposure: CurrentSmokeless Tobacco: NeverAlcohol Use Standard Drinks/WeekCommentsNever0 (1 standard drink = 0.6 oz pure alcohol)[facility] UtilitiesAnswerDate RecordedIn the past 12 months has the electric, gas, oil, or water [employer] threatened to shut off services in your [...] relatives?Once a week08/13/2022How often do you attend voodoo or mosque services?More than 4 times per year08/13/2022o you belong to any clubs or organizations such as voodoo groups, unions, fraternal or athletic groups, or school groups?Yes08/13/2022How often do you attend meetings of the clubs or organizations you belong to?More than 4 times per year08/13/2022 Are you , , , , never , or living with a partner?Jmvdblt9708/13/2022UDIT-CAnswerDate RecordedQ1: How often do you have a [...] heating?Not hard at all07/24/2025PHQ-2AnswerDate RecordedPatient Health Questionnaire-2 Skgcp871Finmount[facility] point [facility] [place] of Occupational Health - Occupational Stress QuestionnaireAnswerDate [...] were you homeless or living in a half-way (including now)?No07/24/2025Hunger Vital SignAnswerDate RecordedWithin the past 12 months, you worried that your food would run out before you got the money to buymore.Never true07/24/2025Ran Out of Food in the Last YearNot on file07/24/2025CommentsNoSex and Gender InformationValue Date RecordedSex Assigned at RfcjdBvmlku08/09/2024 8:01 AM EDTLegal SexFemale 04/09/2022 12:08 AM EDTGender LqbqnmijSvyiwe51/09/2024 8:01 AM EDTSexual OrientationDon't know07/19/2024 8:01 AM EDTdocumented as of this encounter Plan of Treatment DateTypeDepartmentCare Team (Latest Contact Info)Xvsolibdqqv38/06/2026 8:00 AM ESTFollow-Up [facility] [address] [place] [address] Alaina King, LAUREN [address] [place] [address] documented as of this encounter Visit Diagnoses Diagnosis Chronic, continuous use of opioids Complex regional pain syndrome type 1 of left lower extremity Presence of neurostimulator documented in this encounter Care Teams Team MemberRelationshipSpecialtyStart DateEnd Date Yasir Ledesma MD [address] [facility] [address] [address] PCP - General05/26/22 Tyrel King MD [address] [place], [place] Referring PhysicianGeriatric Medicine11/03/22documented as of this encounter
--- OUTSIDE RECORDS SUMMARY | 2025-09-05 07:49 | XMS_ITS | Clinical Summary ---
Author Organization [facility] Address [address] [place], [place] [address] Care Team Providers Care Freelance Photographer Name Role Phone Yasir Ledesma MD Primary Care Provider [phone] Allergies Active AllergyReactionsCriticalityNoted VojxPrzrjkntMfnrfnzmcQrzySzc04/12/2015 AayoswtojtCaszRaa79/22/2015 Medications MedicationSigDispense QuantityRefillsLast FilledStart DateEnd DateStatus tiZANidine (ZANAFLEX) 4 mg tablet Take 1 tablet by mouth once daily.ctive sucralfate (CARAFATE) 100 mg/mL suspension Carafate 100 mg/mL oral klajtyvpzz37/11/2018Active promethazine (PHENERGAN) 25 mg tablet 08/06/2020Active ondansetron [...] number is lower riskNot on file09/18/2020Data from: https://www.neighborhoodatlas.[facility].edu/. Last address used for calculationNot on file09/18/2020CommentsUnknownSex and Gender InformationValueDate RecordedSex Assigned at BirthNot on fileLegal SexFemale 09/11/2012 10:18 AM ESTGender IdentityNot on fileSexual OrientationNot on file Last Filed Vital Signs Vital SignReadingTime TakenCommentsBlood Eruoidrl242/6810 2:41 PM EDT Kqrwy081508/07/2020 2:41 PM AZIGucvxwikasc34.5 ??C (97.7 ??F)08/23/2012 1:06 PM ESTRespiratory Rate--Oxygen Saturation--Inhaled Oxygen Concentration--Aqgdch21 kg (141 lb)08/07/2020 2:41 PM FCYFxyfdf716.6 cm (5' 6 )08/07/2020 2:41 PM EDT Body Mass Index22.7608/07/2020 2:41 PM EDT Plan of Treatment Health MaintenanceDue DateLast DoneCommentsAnxiety Cucrhwihq52/22/2000Depression Omfmirlwg59/22/2000HIV Dwrsapqeo98/22/2000Hepatitis C Kuwlnlyvz57/22/2000 Hepatitis B Vaccine (1 of 3 - 19+ 3-dose series)2000Cervical Cancer Lwuyknqdo43/22/2003HPV Vaccine (1 - 3-dose SCDM series)2008DTaP,Tdap,Td Vaccine (2 - Td or Tdap)Mammogram Qhclewzhn61/22/2022Covid- 19 Vaccine (1 - 2024- season)2025Influenza Vaccine (#1)2025 07/03/2020, 07/18/2019, 07/11/2019, Additional history exists Care Teams Team MemberRelationshipSpecialtyStart DateEnd Date Yasir Ledesma MD PCP - GeneralFamily Ehqahlqy81/7/12
--- OUTSIDE RECORDS SUMMARY | 2025-09-05 07:49 | XMS_ITS | Clinical Summary ---
Author Organization [facility] Address [address] [facility], [address] [place] [address] Care Team Providers Care Collection Administrator Name Role Phone Yasir Ledesma MD Primary Care Provider [phone] Allergies Active AllergyReactionsCriticalityNoted DateCommentsProchlorperazine Vvsiazlqtckrhs28/09/9015Xvqlagze37/31/2021Ketorolac TromethamineRash,Other (See Comments)Low08/22/2015MeperidineRash,Other (See Comments)Low08/01/2013 Other reaction(s): Unknown Medications MedicationSigDispense QuantityRefillsLast FilledStart DateEnd DateStatus Multiple Vitamins-Minerals (MULTIVITAMIN ADULT PO) Take by mouth dailyActive Ferrous Sulfate (IRON) 28 MG TABS Take by mouth dailyActive Calcium Citrate-Vitamin D (CALCIUM CITRATE + D PO) Take by mouth 2 times dailyActive sucralfate (CARAFATE) 1 GM tablet Take 1 tablet by mouth 4 times dailyActive acetaminophen (TYLENOL) 500 MG tablet Take 2 tablets by mouth every 6 hours as needed for PainActive ondansetron (ZOFRAN) 4 MG tablet Take 1 tablet by mouth every 4 hours as needed for Nausea or Vomiting 15 tablet 02/25/2018Active hyoscyamine (LEVSIN/SL) [address] 1 tablet under the tongue every 4 hours as needed for CrampingActive pantoprazole (PROTONIX) 20 MG tablet Take 2 tablets by mouth in the morning and at bedtimeActive amitriptyline (ELAVIL) 100 MG tablet Take 1 tablet by mouth aidxetg6610/21/2023ctive diclofenac sodium (VOLTAREN) 1 % GEL Apply 1 Application topically 4 times daily as zjtkzv8307/06/2019Active promethazine (PHENERGAN) 25 MG tablet Take 1 tablet by mouth every 6 hours as needed for Jnrali2908/06/2020Active cyanocobalamin 1000 MCG/ML injection Monthly last dose was /ctive tiZANidine (ZANAFLEX) 4 MG tablet Take 1 tablet by mouth as abadty7508/19/2012ctive HYDROcodone-acetaminophen (NORCO) 5-325 MG per tablet Take 1 tablet by mouth every 8 hours as needed.07/08/2024ctive acetaminophen (TYLENOL) 325 MG tablet Indications:Acute postoperative painTake 2 tablets by mouth every 6 hours as needed for Pain Alternate with Motrin so that you are taking something for pain every 3 hours 120 tablet ctive ibuprofen (IBU) 400 MG tablet Indications:Acute postoperative painTake 1 tablet by mouth every 6 hours as needed for Pain (1-2 tabs (400-800mg) to alternate with Tylenol so that you are taking something for pain every 3 hours) 120 tablet ctive pregabalin (LYRICA) 50 MG capsule Take 1 capsule by mouth 2 times daily.07/19/2024ctive Active Problems ProblemNoted DateDiagnosed DateOther microscopic pxplvnfmu83/18/2018Kidney stone 02/25/2018 Family History Medical HistoryRelationNameCommentsOtherFatherBreast CancerSisterRelationName StatusCommentsFatherDeceasedMotherAliveSister Social History Tobacco UseTypesPacks/DayYears UsedDateSmoking Tobacco: FormerCigarettesQuit: 06/2016Passive Smoke Exposure: PastSmokeless Tobacco: NeverAlcohol UseStandard Drinks/WeekCommentsNo0 (1 standard drink = 0.6 oz pure alcohol)Interpersonal Safety Domain Source: IP Abuse ScreeningAnswerDate RecordedPhysical abuseDenies 07/13/2024Verbal chpjnEdahwp01/03/2024Emotional mmibaUvnywr36/03/2024Financial xrocmWjyfzr75/03/2024Sexual mybxuTkzbkz46/03/2024CommentsNoSex and Gender InformationValueDate RecordedSex Assigned at BirthNot on fileLegal Sex Owkufk5011/20/2012 2:06 PM ESTGender IdentityNot on fileSexual OrientationNot on file Last Filed Vital Signs Vital SignReadingTime TakenCommentsBlood Xqnyqymr313/9507/25/2024 11:[address] Brown kcpxsjkqIznnf5102/15/2024 10:57 AM ESNUdqnddsozlk80.5 ??C (97.7 ??F) 07/25/2024 10:57 AM EDTRespiratory Wjsh0819 11:00 AM EDTOxygen Wkzqbnwwnm60%07/25/2024 10:57 AM EDTInhaled Oxygen Concentration--Dtbulp65.1 kg (170 lb)07/25/2024 10:57 AM YNGWcnvcu654.6 cm (5' 6 )07/25/2024 10:57 AM EDTBody Mass Index27.441 10:57 AM EDT Plan of Treatment Health MaintenanceDue DateLast DoneCommentsDepression Hcfwqh3612/30/1993Varicella vaccine (1 of 2 - 13+ 2-dose series)1994HIV qpjtfy5012/30/1996Hepatitis C wwzhls7312/31/1999Hepatitis B vaccine (1 of 3 - 19+ 3-dose series)2000 DTaP/Tdap/Td vaccine (2 - Td or Tdap)reast cancer screen 12/30/20214901Lsaisq56/22/2022Flu vaccine (#1), 07/11/2020, 07/03/2020, Additional history existsCOVID-19 Vaccine ( season) , 10/08/2021, 01/30/2021, Additional history exists Pneumococcal 0-49 years VaccineAged Out01/01/2016No longer eligible based on patient's age to complete this topicHPV vaccine (No Doses Required)Completed Hepatitis A vaccineAged OutNo longer eligible based on patient's age to complete this topicHib vaccineAged OutNo longer eligible based on patient's age to complete this topicMeningococcal (ACWY) vaccineAged OutNo longer eligible based on patient's age to complete this topicMeningococcal B vaccineAged OutNo longer eligible based on patient's age to complete this topicPolio vaccineAged OutNo longer eligible based on patient's age to complete this topic Insurance Care Teams Team MemberRelationshipSpecialtyStart DateEnd Date Yasir Ledesma MD [address] [place] [address] [facility]12/30/14
--- OUTSIDE RECORDS SUMMARY | 2025-09-05 07:49 | XMS_ITS | Clinical Summary ---
Author Organization [facility] Address [address] [place] [address] Care Team Providers [facility] Administrator Name Role Phone Yasir Ledesma MD Primary Care Provider [phone] Tyrel King MD Unavailable Allergies Active AllergyReactionsCriticalityNoted DateCommentsProchlorperazine OakjbzaomdplunInu85/04/9351MvfylpxhgtPdupFyo74/22/2013 Other reaction(s): Unknown KetorolacShortness of breath,NekkFgrh46/12/2022 Medications MedicationSigDispense QuantityRefillsLast FilledStart DateEnd DateStatus cyanocobalamin, [...] ketoconazole (NIZOral) 2 % cream 07/19/2025tive HYDROcodone-acetaminophen (Beulah) 7.5-325 mg tablet Indications:Chronic, continuous use of opioids,Complex regional pain syndrome type 1 of left lower extremity,Presence of neurostimulatorTake 1 tablet by mouth every 8 (eight) hours if needed for severe pain (8-10 pain score). Do not start before August 26, 2025. 90 tablet tive pregabalin (Lyrica) 75 mg capsule Indications:Complex regional pain syndrome type 1 of left lower extremityTake 1 capsule (75 mg) by mouth four times daily. 120 capsule tive HYDROcodone-acetaminophen (Beulah) 7.5-325 mg tablet Indications:Chronic, continuous use of opioids,Complex regional pain syndrome type 1 of left lower extremity,Presence of neurostimulatorTake 1 tablet by mouth every 8 (eight) hours if needed for severe pain (8-10 pain score). Do not start before July 28, 2025. 90 tablet Discontinued(Reorder) pregabalin (Lyrica) 75 mg capsule Indications:Complex regional pain syndrome type 1 of left lower extremityTake 1 capsule (75 mg) by mouth four times daily. Do not start before July 28, 2025. 120 capsule Discontinued(Reorder) Active Problems ProblemNoted DateDiagnosed DateAKI (acute kidney injury)01/11/2025Neuralgia and /09/2025Urinary tract qjjtolfor94/27/2024hronic, continuous use of mblxxof1707/19/2024GERD (gastroesophageal reflux disease)06/02/2024Iron deficiency anemia following bariatric oeuzxru6406/02/2024Vertebral artery occlusion, unspecified cjnoelsnrw64/23/2024cute qukskcvbwbea46/22/2024Nausea and vomiting 10/15/20230239Iheee76/05/2024Vaginal tkypqry52resence of cstcgemzvhigwdn84/25/2023omplex regional pain syndrome type 1 of left lower yzfkdrxno77/28/2023History of total knee arthroplasty, left3Anxiety 07/12/2022rtificial knee joint rgxkett59/02/2022Chronic pain07/12/2022Follow-up examination following treatment with high-risk fidqrwqkwl56/02/2022Internal derangement of left knee07/12/2022Left flank pain07/12/2022steoarthritis of knee07/12/2022ain in left arm07/12/2022ight medial knee pain07/12/2022ain of left calf07/12/2022es anserinus bursitis of left knee07/12/2022adial styloid zehsqfridyhko13/02/2022/P left knee eqgyspzfwgu34/02/2022Inverted nipple 01/08/2021Nipple muovdsjvv30/31/2021Other specified postprocedural states 01/08/2021 Overview (07/12/2022): Added automatically from request for surgery [id number] Pain of right fvylal0201/08/2021 Overview (07/12/2022): Added automatically from request for surgery [id number] Abdominal pain09/06/2019Platelet function jqlbwg6207/12/2018 Overview (07/12/2022): Delta granule SPD 2.26 Easy invukdoh09/05/2018S/P gastric abnfwi4206/15/2018Other microscopic hematuria 02/25/2018Kidney stone02/25/20185494Pthgkvpob10/21/2018 Overview (07/12/2022): Passed kidney stone 3 mm [...] symptoms Resolved Problems ProblemNoted DateDiagnosed DateResolved DateDepressive gaknardz96/02/2022 01/25/2025Morbid xomxzfj96/5Acute lower urinary tract infection Encounters DateTypeDepartmentCare VstxBuktwabvxcu00/12/2025[facility] [address] [place] [address] [place] [phone] Alaina King CNP 08/22/2025[facility] [address] [place] [address] [place] [phone] Alaina King CNP Chronic, continuous use of opioids; Complex regional pain syndrome type 1 of left lower extremity; Presence of lugxhkrthcsfouo70/14/2025 8:20 AM EDTFollow-Up [facility] [address] [place] [address] [place] [phone] Alaina King CNP Complex regional pain syndrome type 1 of left lower extremity (Primary Dx); Presence of neurostimulator; Other chronic postprocedural pain; Neuralgia and neuritis; Chronic, continuous use of mxdbvyl6806/25/2025Orders Only [facility] Pain Medicine [address] [place] [address] [place] [phone] Alaina King CNP 06/25/2025[facility] Pain Medicine [address] [place] [address] [place] [phone] Alaina King CNP Chronic, continuous use of opioids; Complex regional pain syndrome type 1 of left lower extremity; Presence of neurostimulator; Other chronic postprocedural painfrom Last 3 Months Family History Medical HistoryRelationNameCommentsCancerFatherRex ShearnKidney cancerMaternal GrandmotherBrain cancerMotherProstate cancerPaternal GrandfatherBreast cancer Sister 1CancerSister 2April Wisuny downstate medical centeranRelationNameStatusCommentsFatherRex Shearn Maternal GrandmotherMotherPaternal GrandfatherSister 1Sister 2April Dayanara Social History Tobacco UseTypesPacks/DayYears UsedDateSmoking Tobacco: FormerCigarettesQuit: 12/18/1997Passive Smoke Exposure: CurrentSmokeless Tobacco: Never Tobacco Cessation:Counseling Given: Not Answered Alcohol UseStandard Drinks/WeekCommentsNever0 (1 standard drink = 0.6 oz pure alcohol)[facility] UtilitiesAnswerDate RecordedIn the past 12 months has the [employer], gas, oil, or water [employer] threatened to shut off services in your home?No 12/25/2024Humiliation, Afraid, Rape, and Kick questionnaireAnswerDate Recorded Within the last year, have you been afraid of your partner or ex-partner?No 07/24/2025Emotionally AbusedNot on file07/24/2025Physically AbusedNot on file 07/24/2025Sexually AbusedNot on file07/24/2025Social Connection and Isolation PanelAnswerDate RecordedIn a typical week, how many times do you talk on the phone with family, friends, or neighbors?More than three times a week08/13/2022 How often do you get together with friends or relatives?Once a week08/13/2022How often do you attend cheondoism or rastafarian services?More than 4 times per year 2Do you belong to any clubs or organizations such as cheondoism groups, unions, fraternal or athletic groups, or school groups?Yes08/13/2022How often do you attend meetings of the clubs or organizations you belong to?More than 4 times per year08/13/2022re you , , , , never , or living with a partner?Jpmtdio2408/13/2022UDIT-CAnswerDate RecordedQ1: How often do you have a drink containing alcohol?Never08/13/2022Q2: How many drinks containing alcohol do you have on a typical day when you are drinking? Patient does not drink08/13/2022Q3: How often do you have six or more drinks on one occasion?Never08/13/2022verall Financial Resource Strain (CARDIA)AnswerDate RecordedHow hard is it for you to pay for the very basics like food, housing, medical care, and heating?Not hard at all07/24/2025PHQ-2AnswerDate Recorded Patient Health Questionnaire-2 Epxdf177Finintermountain medical center [place] of Occupational Health - Occupational Stress QuestionnaireAnswerDate RecordedDo you feel stress - tense, restless, nervous, or anxious, or unable to sleep at night because your mind is troubled all the time - these days?Not at all08/13/2022Exercise Vital SignAnswerDate RecordedOn average, how many days [...] in other ways by your partner or ex-partner?No12/24/2023Within the last year, have you been kicked, hit, slapped, or otherwise physically hurt by your partner or ex-partner?No12/24/2023Within the last year, have you been raped or forced to have any kind of sexual activity by your partner or ex-partner?No12/24/2023In the past year have you been physically or sexually abused?Unrecognized value12/24/2023TransportationAnswer Date RecordedIn the past 12 months, has lack of transportation kept you from medical appointments or from getting medications?No07/24/2025Lack of Transportation (Non-Medical)Not on file07/24/2025Housing Stability Vital Sign AnswerDate RecordedIn the last 12 months, was there a time when you were not able to pay the mortgage or rent on time?No07/24/2025Number of Times Moved in the Last YearNot on file07/24/2025t any time in the past 12 months, were you homeless or living in a usp (including now)?No07/24/2025Hunger Vital Sign AnswerDate RecordedWithin the past 12 months, you worried that your food would run out before you got the money to buymore.Never true07/24/2025Ran Out of Food in the Last YearNot on file07/24/2025CommentsNoSex and Gender InformationValueDate RecordedSex Assigned at IfnoqZsijvt38/09/2024 8:01 AM EDT Legal JvwVvgadb41/30/2022 12:08 AM EDTGender UbmvqdqcFmpkky16/09/2024 8:01 AM EDTSexual OrientationDon't know07/19/2024 8:01 AM EDT Last Filed Vital Signs Vital SignReadingTime TakenCommentsBlood Ybfboolg938/8807 3:23 PM EDT Lpiik440704/24/2025 3:23 PM ZCJSmrqeguzilb01.2 ??C (97.2 ??F)04/28/2023 11:20 AM EDTSimultaneous filing. User may not have seen previous data.Respiratory Rate20 12/05/2024 11:30 AM ESTOxygen Gipqenxthi260%04/24/2025 3:23 PM EDTInhaled Oxygen Concentration--Kmhtbc35.5 kg (162 lb)07/24/2025 8:17 AM OBKTgjcmq984.6 cm (5' 6 )07/24/2025 8:17 AM EDTBody Mass Index26.151 8:17 AM EDT Plan of Treatment DateTypeDepartmentCare Team (Latest Contact Info)Cazvuhjnefk25/06/2026 8:00 AM ESTFollow-Up [facility] [address] [facility] [place] [id number] Alaina King CNP [address] [place] [address] Health MaintenanceDue DateLast DoneCommentsVaricella Vaccines (1 of 2 - 13+ 2- dose series)1994Hepatitis B Vaccines (1 of 3 - 19+ 3-dose series) 2000HPV Vaccines (1 - 3-dose SCDM series)2008HPV/Zxqhfm9112/31/2011 Adult Gmbwunu67Mammogram2COVID-19 Vaccine ( season), 10/08/2021, 01/30/2021, Additional history existsInfluenza Vaccine (#1)/, 07/11/2020, 07/03/2020, Additional history existsDepression Mamprhowd19ervical Cancer Zxdzvhzqs97/09/2028Pap Smear06806/06/2025Zoster Vaccines (1 of 2) 2Pneumococcal Vaccine: Pediatrics (0 to 5 Years) and At-Risk Patients (6 to 64 Years)Aged Out01/01/2016No longer eligible based on patient's age [...] Miner MD (Quantity not on file)Left: Back [id number]// [id number] / Slim Tip Drg Lead-02/11/2023 Implanted:02/11/2023 by Arjun Miner MD (Quantity not on file)Left: Back [id number]// [id number] / Slim Tip Drg-02/11/2023 Implanted:02/11/2023 by Arjun Miner MD (Quantity not on file)Back [id number]// [id number] / Jackson Drg Ext Pulse Generator 2 Port Header-02/11/2023 Implanted:02/11/2023 by Arjun Miner MD (Quantity not on file)Left: Back [id number]// [id number] / Slimtip Drg Implanted:Qty: 1 on 04/28/2023 [facility] Chayito [id number] / [id number] / Proclaim Drg Implanted:Qty: 1 on 04/28/2023 by [facility]: [id number] / [id number] / Description:Part of BuildSlimtip Drg Implanted:Qty: 1 on 04/28/2023 by [facility]: [id number] / [id number] / Description:Part of BuildExplantedTypeAreaManufacturerDevice IdentifierShelf Expiration DateModel / Serial / LotSlimtip Drg Explanted:Qty: 1 on 04/28/2023 by [facility]: [id number] / [id number] / Description:WAS IMPLANTED AND EXPLANTED DURING CASE Insurance Care Teams Team MemberRelationshipSpecialtyStart DateEnd Yasir Ledesma MD [address] [place] [address] [facility]05/26/22 Tyrel King MD [address] [place], [place] Referring PhysicianAvita Health Systemiatric Medicine11/03/22
--- OUTSIDE RECORDS SUMMARY | 2025-09-05 07:50 | XMS_ITS | Clinical Summary ---
Author Organization [facility] Address [address] [place] [address] Care Team Providers Care Director Of Operations For Therapy Name Role Phone Yasir Ledesma MD Primary Care Provider [phone] Allergies Active AllergyReactionsCriticalityNoted UzvgWlhjqzyeXoeynrlu21/31/2021Ketorolac ExxbTtp0905/29/20159182XuyerzvykuJlysYsi11/22/2013Meperidine Hcl01/08/2021 Medications MedicationSigDispense QuantityRefillsLast FilledStart DateEnd DateStatus [...] Problems ProblemNoted DateDiagnosed DateHistory of right breast xrggyi3802/06/2021 Overview (02/06/2021): Added automatically from request for surgery [id number] Nipple pain02/06/2021 Overview (02/06/2021): Added automatically from request for surgery [id number] Inverted jwqhiz3801/08/2021Hx of right breast oalxnk8601/08/2021ain of right breast 01/08/2021Nipple gvuydftim84/31/2021 Immunizations ImmunizationAdministration DatesNext DueInfluenza Vaccine, Quadrivalent MDCK PF 07/03/2020Influenza Vaccine, Xqnelpkhc87/01/2020,09/17/2013Influenza, injectable, quadrivalent, preservative free07/18/2019,07/08/2018Pneumococcal Polysac 23-Valent Istsbnr7101/01/2016Tdap Ymyxguc8007/10/2011 Family History Medical HistoryRelationNameCommentsBreast CancerSisterRelationNameStatusComments Sister Social History Tobacco UseTypesPacks/DayYears UsedDateSmoking Tobacco: QegrwiXwxmzlfvbq2Ktka: 2018Smokeless Tobacco: Never Tobacco Cessation:Ready to Q uit: No; Counseling Given: Yes Alcohol UseStandard Drinks/WeekCommentsNot Currently0 (1 standard drink = 0.6 oz pure alcohol)CommentsNoSex and Gender InformationValueDate RecordedSex Assigned at BirthNot on fileLegal VimHjesba67/03/2013 3:54 PM ESTGender Identity Not on fileSexual OrientationNot on file Last Filed Vital Signs Vital SignReadingTime TakenCommentsBlood Weggetcv644/8607 2:39 PM EDT Avfzw163804/15/2021 2:39 PM XFDBlkpgcvored48.6 ??C (97.9 ??F)04/15/2021 2:39 PM EDTRespiratory Hjxw421603/06/2021 3:45 PM EDTOxygen Gddzmbouhn17%03/06/2021 3:45 PM EDTInhaled Oxygen Concentration--Pkzgmt19.5 kg (155 lb 6.4 oz)04/15/2021 2:39 PM QYYVkdypi597.6 cm (5' 6 )03/06/2021 11:18 AM EDTBody Mass Index25.08 03/06/2021 11:18 AM EDT Plan of Treatment Health MaintenanceDue DateLast DoneCommentsHEPATITIS C VIRUS GLDSZXDNQ39/22/1982 HIV SCREENING SUOSDJTOTE05/22/1997HEP B VACCINE (1 of 3 - 19+ 3-dose series) 2000CERVICAL CANCER SCREENING MYJIMQNZYM19/22/2003HPV VACCINE (1 - 3-dose SCDM series)12/30/20080155GCNYLBY01LIPID CUYRMWJHO08/22/2022 MAMMOGRAM SCREENING MENVQLAZFS50/22/2022OVID-19 VACCINE (2024- season) , 01/09/2021INFLUENZA VACCINE (#1), 07/03/2020, 07/18/2019, Additional history existsTDAP (ADULT)Kgmaufdek67/30/2011 PNEUMOCOCCAL VACCINE SERIESAged Out01/01/2016No longer eligible based on patient's age to complete this topic Insurance * Guarantor: Janet Harding TypeRelation to PatientDate of PhoneBilling AddressPersonal/ElzahpHtta18/22/1981 [facility] [place] [address] * Guarantor: Janet Harding TypeRelation to PatientDate of PhoneBilling AddressPersonal/RayimfOrke65/22/1981 [place] [address] Care Teams Team MemberRelationshipSpecialtyStart DateEnd Yasir Ledesma MD [facility]01/08/21
--- OUTSIDE RECORDS SUMMARY | 2025-09-05 07:50 | XMS_ITS | Encounter Summary ---
Author Organization [facility] Address [address] [place] [address] Care Team Providers Care Data Manager Name Role Phone Unallocated, [facility] Provider Primary Care Provi luc Encounter Details DateTypeDepartmentCare Team (Latest Contact Info)Opcsagssxqu76/14/2025Results Follow-Up [facility] [address] [place] [address] Mando Villasenor PA [address] [place] [address] MR knee right wo IV contrast Social History Tobacco UseTypesPacks/DayYears UsedDateSmoking Tobacco: NeverSmokeless Tobacco: NeverCommentsUnknownSex and Gender InformationValueDate RecordedSex Assigned at BirthNot on fileLegal QyyRfjlyo01/15/2023 6:47 PM EDTGender Identity Not on fileSexual OrientationNot on filedocumented as of this encounter Plan of Treatment DateTypeDepartmentCare Team (Latest Contact Info)Hswgnuxzbbi59/02/2025 10:00 AM ESTOffice Visit [facility] [address] [place] [address] Jr. Horacio Thacker DO [address] [facility] [place] [address] 03/21/2026 9:00 AM EDTOffice Visit [facility]OM[facility] [address] [place] [address] [place] [address] Eduardo Freedman DO [address] [place], [place] [id number] documented as of this encounter Visit Diagnoses Not on filedocumented in this encounter Care Teams Team MemberRelationshipSpecialtyStart DateEnd Date Unallocated, Noms Provider, [place] [address] PCP - GeneralFamily Xopkhqua81/3/25documented as of this encounter
--- OUTSIDE RECORDS SUMMARY | 2025-09-05 07:50 | XMS_ITS | Encounter Summary ---
Author Organization [facility] Address [address] [place] [address] Care Team Providers Care Coal Equipment Operator Name Role Phone Unallocated, Noms Provider Primary Care Provi luc Encounter Details DateTypeDepartmentCare Team (Latest Contact Info)Mwwwgkmvhsq18/13/2025Travel Social History Tobacco UseTypesPacks/DayYears UsedDateSmoking Tobacco: NeverSmokeless Tobacco: NeverCommentsUnknownSex and Gender InformationValueDate RecordedSex Assigned at BirthNot on fileLegal RacEunuqi30/15/2023 6:47 PM EDTGender Identity Not on fileSexual OrientationNot on filedocumented as of this encounter Plan of Treatment DateTypeDepartmentCare Team (Latest Contact Info)Hcdfavqewiq35/02/2025 10:00 AM ESTOffice Visit [facility] [address] [place] [phone] Jr. Horacio Thacker DO [address] [address] 03/21/2026 9:00 AM EDTOffice Visit [facility] [place] [address] [place] [address] Eduardo Freedman DO [address] [facility] [place] [address] documented as of this encounter Visit Diagnoses Not on filedocumented in this encounter Care Teams Team MemberRelationshipSpecialtyStart DateEnd Date Unallocated, Noms Barbara [address] [place] [address] PCP - GeneralFamily Xjugtvro51/3/25documented as of this encounter
--- OUTSIDE RECORDS SUMMARY | 2025-09-05 07:50 | XMS_ITS | Patient Health Record ---
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030BLOOD++IE6GWJFPWF22 UROBILINOGENnNITRITEnLEUKOCYTE ESTERASEnHCG Qualitative Urine Reviewed date:09/28/2024 02:46:50 PM Interpretation: Performing Lab: Notes/Report: [facility] ,HCG Qualitative Urine*NEGATIVENEGATIVEPerforming Lab:see noteML - [facility] LBCT abdomen pelvis w con Reviewed date:09/28/2024 02:46:50 PM Interpretation: Performing Lab: Notes/Report: Source Facility: [facility]-[address] [place] [address] [place] [address] [place] Scan Report Signed Patient: KRISTINE MOORE MR#: [id number] : 1980 Acct:[id number] Age/Sex: 43 / F ADM Date: 09/28/24 Loc: ER Attending Dr: Ordering Physician: Genna Heaton M.D. Date of Service: 09/28/24 Procedure(s): CT abdomen pelvis w con Accession Number(s): [id number] cc: Yasir Ledesma M.D. [place] [id number] Patient Name: KRISTINE MOORE MRN: [id number] date: 1980 Sex: F Assigned Patient Location: ER Current Patient Location: ER Accession/Order Number: [id number] Exam Date: 09/28/2024 01:33 Report Date: 09/28/2024 [...] M.D. Signed By: 09/28/24227 DD/ 5 TD/TT: Distilling Department Supervisor:PROF Hill(COMP METB) Reviewed date:08/14/2025 01:49:37 PM Interpretation: Performing Lab: Notes/Report: [facility] ,Nclkti864197-923 mmol/LPotassium3.93.5-5.1 mmol/HTdkdkmqi85836-578 mmol/LCarbon Zpcejls63.121.0-32.0 mmol/LAnion Gap13.1Dxxqips07125-718 mg/dLBlood Urea Bxvnrflc84.07.0-18.0 mg/dLCreatinine0.780.55-1.02 mg/dLEstimated GFR ( Grace>60>=60 mL/min/1.73m 2Estimated GFR (Non- Essence>60>=60 mL/min/1.73m 2BUN Creatinine Ratio16.7Tfyikyk6.08.5-10.1 mg/dLBilirubin Total0.30.2-1.0 mg/dL Aspartate Amino Vwanlcurcbb0258-63 U/LAlanine Ajpfoyeocukezxfn9041-75 U/L Alkaline Cqpmhodqdza82678-964 U/LTotal Protein7.66.4-8.2 g/dLAlbumin Level3.8 3.4-5.0 g/dLGlobulin3.8Albumin Globulin Ratio1.0Performing Lab:see noteML - [facility] LBLIPASE Reviewed date:08/14/2025 01:49:37 PM Interpretation: Performing Lab: Notes/Report: [facility] ,Huvvlq678.016.0-77.0 U/LPerforming Lab:see noteML - [facility] LBCBC AUTO DIFF Reviewed date:08/14/2025 01:49:37 PM Interpretation: Performing Lab: Notes/Report: [facility] ,White Blood Count7.04.0-11.0 10 3/uLRed Blood Count4.624.20-5.40 10 6/uL Ogjfiokxju15.612.0-16.0 g/sVGhfzjylvws27.636.0-48.0 %Mean Corpuscular Lbkrae76.4 81.0-99.0 fLMean Corpuscular Xmpvopdzeq98.126.7-34.0 pgMean Corpuscular HGB Conc 30.929.9-35.2 g/dLRed Cell Distribution Width14.811.0-15.0 %Platelet Fuufc160 150-450 10 3/uLMean Platelet Volume9.59.5-13.5 fLNeutrophils Percent Auto68.7 43.0-75.0 %Lymphocytes Percent Auto24.420.5-60.0 %Monocytes Percent Auto6.01.7- 12.0 %Eosinophils Percent Auto0.60.9-7.0 %Basophils Percent Auto0.30.2-2.0 % Immature Granulocytes Pct Auto0.00.0-0.5 %Neutrophils Absolute Auto4.81.4-6.5 10 3/uLLymphocytes Absolute Auto1.71.2-3.8 10 3/uLMonocytes Absolute Auto0.40.3-0.8 10 3/uLEosinophils Absolute Auto0.00.0-0.7 10 3/uLBasophils Absolute Auto0.00.0- 0.1 10 3/uLImmature Granulocytes Abs Auto0.000.00-0.03 10 3/uLPerforming Lab:see noteML - [facility] LBAMYLASE Reviewed date:08/14/2025 01:49:37 PM Interpretation: Performing Lab: Notes/Report: [facility] ,Qcqzzjp9666-893 U/LPerforming Lab:see noteML - [facility] LBUA DIP NONAUTO WO MICRO (45951) - IN OFFICE Reviewed date:08/14/2025 11:58:33 AM Interpretation: Performing Lab: Notes/Report: COLORYellowCLARITYClearGLUCOSENegBILIRUBINNegKETONE+SPECIFIC GRAVITY1.020BLOOD LllHZ0YJILNXGXdzTYOMLRZWUDORCnnTWGVBDIKmcXFXRWSYBY ESTERASENegUA DIP NONAUTO WO MICRO (99360) - IN OFFICE Reviewed date:08/14/2025 01:49:37 PM Interpretation: Performing Lab: Notes/Report: COLORyellowCLARITYclearGLUCOSEnBILIRUBINnKETONE5+SPECIFIC GRAVITY1.030BLOODlarge LA9PWNFKJT64NRRPXACOCPKXrTRNJNHXfQYSCHQOAL UJWDUQQI91+PROF 14(COMP METB) Reviewed date:01/16/2025 03:11:03 PM Interpretation: Performing Lab: Notes/Report: [facility] ,Kdkgfk551573-486 mmol/LPotassium4.53.5-5.1 mmol/HNnuzvkpc52990-112 mmol/LCarbon Negmlpv44.021.0-32.0 mmol/LAnion Gap9.8Kmhpgcx3039-609 mg/dLBlood Urea Nitrogen 17.07.0-18.0 mg/dLCreatinine0.820.55-1.02 mg/dLEstimated GFR ( Grace>60 >=60 mL/min/1.73m 2Estimated GFR (Non- Essence>60>=60 mL/min/1.73m 2BUN Creatinine Ratio20.5Bhbhkkn1.98.5-10.1 mg/dLBilirubin Total0.30.2-1.0 mg/dL Aspartate Amino Rmcaslvtoju6860-66 U/LAlanine Hjnlvmocloteclak4982-62 U/L Alkaline Mnxtwztaicx81963-503 U/LTotal Protein6.36.4-8.2 g/dLAlbumin Level3.0 3.4-5.0 g/dLGlobulin3.3Albumin Globulin Ratio0.9Performing Lab:see noteML - [facility] LBCBC AUTO DIFF Reviewed date:09/28/2024 02:46:50 PM Interpretation: Performing Lab: Notes/Report: [facility] ,White Blood Count6.94.0-11.0 10 3/uLRed Blood Count4.534.20-5.40 10 6/uL Xevlpxkebf47.912.0-16.0 g/gRTrujzbqotz89.336.0-48.0 %Mean Corpuscular Okdlev98.5 81.0-99.0 fLMean Corpuscular Atoweflabq89.326.7-34.0 pgMean Corpuscular HGB Conc 31.129.9-35.2 g/dLRed Cell Distribution Width13.711.0-15.0 %Platelet Hvkus190 150-450 10 3/uLMean Platelet Volume9.29.5-13.5 fLNeutrophils Percent Auto50.8 43.0-75.0 %Lymphocytes Percent Auto41.920.5-60.0 %Monocytes Percent Auto5.61.7- 12.0 %Eosinophils Percent Auto1.00.9-7.0 %Basophils Percent Auto0.30.2-2.0 % Immature Granulocytes Pct Auto0.40.0-0.5 %Neutrophils Absolute Auto3.51.4-6.5 10 3/uLLymphocytes Absolute Auto2.91.2-3.8 10 3/uLMonocytes Absolute Auto0.40.3-0.8 10 3/uLEosinophils Absolute Auto0.10.0-0.7 10 3/uLBasophils Absolute Auto0.00.0- 0.1 10 3/uLImmature Granulocytes Abs Auto0.030.00-0.03 10 3/uLPerforming Lab:see noteML - [facility] LBPROF CHEM 8 (BAS METB) Reviewed date:09/28/2024 02:46:50 PM Interpretation: Performing Lab: Notes/Report: [facility] ,Xqrshk897149-193 mmol/LPotassium4.03.5-5.1 mmol/FOidikrmd73560-089 mmol/LCarbon Kkkcojg05.421.0-32.0 mmol/LAnion Gap9.5Uxwoeav3225-865 mg/dLBlood Urea Nitrogen 10.07.0-18.0 mg/dLCreatinine0.770.55-1.02 mg/dLEstimated GFR ( Grace>60 >=60 mL/min/1.73m 2Estimated GFR (Non- Essence>60>=60 mL/min/1.73m 2BUN Creatinine Ratio13.2Woqwvwp6.88.5-10.1 mg/dLPerforming Lab:see noteML - [facility] LBUA RANDOM W or MICROSCOPIC Reviewed date:09/28/2024 02:46:50 PM Interpretation: Performing Lab: Notes/Report: [facility] ,Color UrineYELLOWYELLOWClarity UrineCLEARCLEARSpecific [place] Urine1.020 1.005-1.025pH Urine7.55.0-9.0Protein UrineTRACENEG/TRACE mg/dLGlucose Urine UA NEGATIVENEGATIVE mg/dLBilirubin UrineNEGATIVENEGATIVEKetones UrineTRACENEGATIVE mg/dLBlood UrineMODERATENEGATIVENitrite UrineNEGATIVENEGATIVEUrobilinogen Urine 1.00.2-1.0 EU/dLLeukocyte Esterase UrineTRACENEGATIVEWBC Urine5-10NONE SEEN #/HPFRBC Kwrog81-894-8 #/HPFBacteria UrineSMALLNONE SEEN #/HPFMucus UrineTRACE NONE SEENSquamous Epithelial Cell UrineFEWNONE/RARE #/LPFCrystals Seen?SeenNone Seen #/HPFAmorphous Sediment UrineFEWCast Seen?NONE SEENNONE SEEN #/LPFUrine Culture IndicatedYESPerforming Lab:see noteML - [facility] LBCBC AUTO DIFF Reviewed date:12/14/2024 08:43:40 PM Interpretation: Performing Lab: Notes/Report: [facility] ,White Blood Count4.84.0-11.0 10 3/uLRed Blood Count4.134.20-5.40 10 6/uL Yxhrgrdtze28.412.0-16.0 g/mRWtolyajjqn10.636.0-48.0 %Mean Corpuscular Deebzd22.4 81.0-99.0 fLMean Corpuscular Ieadrvrsvn89.226.7-34.0 pgMean Corpuscular HGB Conc 31.029.9-35.2 g/dLRed Cell Distribution Width15.111.0-15.0 %Platelet Ssfso101 150-450 10 3/uLMean Platelet Volume9.69.5-13.5 fLNeutrophils Percent Auto48.4 43.0-75.0 %Lymphocytes Percent Auto41.520.5-60.0 %Monocytes Percent Auto8.41.7- 12.0 %Eosinophils Percent Auto1.50.9-7.0 %Basophils Percent Auto0.20.2-2.0 % Immature Granulocytes Pct Auto0.00.0-0.5 %Neutrophils Absolute Auto2.31.4-6.5 10 3/uLLymphocytes Absolute Auto2.01.2-3.8 10 3/uLMonocytes Absolute Auto0.40.3-0.8 10 3/uLEosinophils Absolute Auto0.10.0-0.7 10 3/uLBasophils Absolute Auto0.00.0- 0.1 10 3/uLImmature Granulocytes Abs Auto0.000.00-0.03 10 3/uLPerforming Lab:see noteML - [facility] LBFREE T3 Reviewed date:12/14/2024 08:43:40 PM Interpretation: Performing Lab: Notes/Report: [facility] ,Free T32.742.18-3.98 pg/mLPerforming Lab:see noteML - [facility] LB GLYCOHEMOGLOBIN A1C Reviewed date:12/14/2024 08:43:40 PM Interpretation: Performing Lab: Notes/Report: [facility] ,Glycohemoglobin A1C5.14.5-6.2 % ADA RECOMMENDED LIMIT 4.0 - 6.0 ADA THERAPEUTIC TARGET < 7.0 ACTION SUGGESTED > 7.0 Estimated Average Ryautsr985Esismjelfy Lab:see noteML - [facility] LB LIPID PROFILE Reviewed date:12/14/2024 08:43:40 PM Interpretation: Performing Lab: Notes/Report: [facility] ,Ihsbucfkqwawc38<=150 mg/rMJhnsxqebgbi191<=200 mg/dLHDL Blcfcbxxsan0866-48 mg/dL > or =60 mg/dl - LOW CARDIOVASCULAR RISK <40 mg/dl - HIGH CARDIOVASCULAR RISK LDL Cholesterol Nmgagncnce99.0 <100 mg/dl OPTIMAL 100-129 mg/dl NEAR OR ABOVE OPTIMAL 130-159 mg/dl BORDERLINE HIGH 160-189 mg/dl HIGH >190 mg/dl VERY HIGH VLDL EIVKYNKADPC11.2Chol HDL Ratio1.8 3.3 - 4.4 LOW RISK 4.4 - 7.1 AVERAGE RISK 7.1 - 11.0 MODERATE RISK >11.0 HIGH RISK Performing Lab:see note - [facility] LBPROF 14(COMP METB) Reviewed date:12/14/2024 08:43:40 PM Interpretation: Performing Lab: Notes/Report: [facility] ,Frnliq507307-065 mmol/LPotassium4.73.5-5.1 mmol/ZDlgnpclk93941-746 mmol/LCarbon Bsrhwkl00.021.0-32.0 mmol/LAnion Gap8.2Sjeycpc8520-202 mg/dLBlood Urea Nitrogen 15.07.0-18.0 mg/dLCreatinine0.790.55-1.02 mg/dLEstimated GFR ( Grace>60 >=60 mL/min/1.73m 2Estimated GFR (Non- Essence>60>=60 mL/min/1.73m 2BUN Creatinine Ratio19.3Cnsyqje7.28.5-10.1 mg/dLBilirubin Total0.20.2-1.0 mg/dL Aspartate Amino Adjciqahuka7374-16 U/LAlanine Qprtuzbzjxbaxdwi4595-82 U/L Alkaline Coywatmrzxu88021-870 U/LTotal Protein6.76.4-8.2 g/dLAlbumin Level3.3 3.4-5.0 g/dLGlobulin3.4Albumin Globulin Ratio1.0Performing Lab:see noteML - [facility] LBT4 Reviewed date:12/14/2024 08:43:40 PM Interpretation: Performing Lab: Notes/Report: [facility] ,T4 Thyroxine7.504.80-13.90 ug/dLPerforming Lab:see noteML - [facility] LBTSH Reviewed date:12/14/2024 08:43:40 PM Interpretation: Performing Lab: Notes/Report: [facility] ,Thyroid Stimulating Hormone1.1750.358-3.740 uIU/mLPerforming Lab:see noteML - [facility] LBIGP,Aptima HPV,Age Gdln Reviewed date:03/25/2025 12:03:27 PM Interpretation: Performing Lab: Notes/Report: BRUSH-SPATULA CERVIX [facility] ,Age Gdln ACOG TestingNote. TESTS RESULT FLAG UNITS REF RANGE LAB Clinician Provided Cytology Information Source.............Cervix No. of containers..01 ThinPrep Vial Age Algo ACOG Yue... 30-65 FLAG LEGEND: L-Low Normal,H-High Normal,LL-Alert Low,HH-Alert High <-Panic Low,>-Panic High,A-Abnormal,AA-Critical Abnormal Performed at: 01 =G [address] [address] Rosy Madrigal MD, IGP, Aptima HPV, rfx 16/18,45Note. TESTS RESULT FLAG UNITS REF RANGE LAB DIAGNOSIS: 02 NEGATIVE FOR INTRAEPITHELIAL LESION OR MALIGNANCY. Specimen adequacy: 02 Satisfactory for evaluation. No endocervical component is identified. Performed by: Demetris Garza, Teacher Private (ASC) . 02 Note: Note 02 The Pap [...] <-Panic Low,>-Panic High,A-Abnormal,AA-Critical Abnormal Performed at: [address] [address] Rosy Madrigal MD, HPV AptimaNegativeNegative This nucleic acid amplification test detects fourteen high- risk HPV types (16,18,31,33,35,39,45,51,52,56,58,59,66,68) without differentiation. Performed at: =[facility] [id number] Battery Plate Remover: Rosy Madrigal MD, Phone: [phone] Performed at: [facility] [address] [id number] Battery Plate Remover: Rosy Madrigal MD, Phone: [phone] Performing Lab:see noteLC - [facility] LBUrine Culture - [facility] Reviewed date:05/07/2025 12:39:41 PM Interpretation: Performing Lab: Notes/Report: [facility] ,Urine Culture - FRMCSee Below For Report Urine Culture - [facility] 50,000 colonies/ml mixed Urine Culture - FRMCbacterial skin contaminants Urine Culture - [facility] 50,000 colonies/ml mixed Urine Culture - [facility]2 Days Urine Culture - [facility] 50,000 colonies/ml mixed Urine Culture - [facility] Urine Culture - [facility] 50,000 colonies/ml mixed U[facility] - [facility] 50,000 colonies/ml mixed Urine Culture - [id number] [place] [address] Urine Culture - [facility] 50,000 colonies/ml mixed Performing Lab:see noteML - [facility] LBUA (URINALYSIS), COMPLETE (75547) - IN OFFICE Reviewed date:12/14/2024 08:43:40 PM Interpretation: Performing Lab: Notes/Report: COLORyellowYELLOW - AMBERCLARITYclearCLEAR - CLEARGLUCOSEnegNEG - NEG MG/DL BILIRUBINnegNEG - NEGKETONESneghNEG - NEG MG/DLSPECIFIC GRAVITY1.0101.001 - 1.035BLOOD, URtraceNEG - NEG MG/DLPH, UR75.0 - 9.8WGVHYUUARHTYyjv5.2 - 1.0 MG/DL NITRITEnegNEG - NEGPROTEINtraceWBC, URtrace0 - 4 /HPFUrine Culture, Routine Reviewed date:10/01/2024 02:08:22 PM Interpretation: Performing Lab: Notes/Report: [facility] ,Urine Culture, RoutineSee Below For Report Urine Culture, Routine Urine Culture, RoutineMixed urogenital cordell Urine Culture, Routine Urine Culture, Etxpyxx91,000-25,000 colony forming units per mL Urine Culture, Routine Urine Culture, RoutinePerformed at: [facility] [place] Urine Culture, Routine Urine Culture, [address] [place], [place] [id number] Urine Culture, Routine Urine Culture, RoutineLab Director: Leandro Queen PhD, Phone: [phone] Urine Culture, Routine Performing Lab:see note LC - [facility] LB SEE REPORT - Video Manager Id information not found for OBX-specific 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 Medicine Referring Provider First Name Malachi Referring Provider Last Name Tarikpaco Referring Provider Speciality Family Med icine Referred Provider TB, Physical Therap y Referred Provider Specialty Physical Med icine and Rehabilitation Referral Priority Routine Medications Medication SIG (Take, Route, Frequency, Duration) Notes Start Date End Date Status Pantoprazole Sodium 40 MG Take 2 tablets by mout h once daily.; Duration: 90 ActiveOne A Day Women 50 Plus -as directed OrallyActivePregabalin 50 MG1 capsule Orally BIDActivePremarin 0.625 MG/GM0.625 Vaginal Once a day07/05/2023ctive Amitriptyline HCl 100 MG1 tablet Orally at bedtime; Duration: 30 daysActive Calcium 600 MG2 tablet with meals Orally Once a dayActiveCarafate 1 GM1 tablet on an empty stomach Orally QIDActiveMeclizine HCl 25 MG1 tablet as needed Orally every 12 hrs05/04/2024ctiveOndansetron 4 MG1 tablet on the tongue and allow to dissolve Orally qid5ActiveAlbuterol Sulfate (2.5 MG/3ML) 0.083%3 mL as needed Inhalation every 6 hrs12/03/2023ctivePromethazine HCl 25 MG1 suppository as needed Rectal every 6 hrs; Duration: 2 12/13/2024tivePromethazine HCl 25 MG1 tablet as needed Orally q6h; Duration: 30 xgxhFCT4808/13/2023ctiveReglan 10 MG1 tablet as needed Orally every 4 hrs; Duration: 01/20/2023ctive Imitrex 100 MG1 tablet at least 2 hours between doses as needed Orally Twice a day; Duration: 41XXK9508/17/2023ctiveKetoconazole 2 %1 application Externally bid; Duration: 14 07/19/2025tiveTopamax 50 MG1 tablet Orally Once a day; Duration: 09/13/2023ctiveTriamcinolone Acetonide 0.1 %1 application Externally Twice a day; Duration: ctiveFlomax 0.4 MG1 capsule Orally Once a day; Duration: 01/12/2025tiveHYDROcodone-Acetaminophen 5- 325 MG1 tablet as needed Orally BID as needed (PAIN CLINIC)PRNActiveHyoscyamine Sulfate 0.125 MG1-2 tabs SL SL every 4 hrs PRN abd pain09/26/2024ctive Hyoscyamine Sulfate 0.125 MG1-2 tabs SL SL every 4 hrs PRN abd pain07/19/2025 ActiveCeleXA 10 MG1 tablet Orally Once a day; Duration: 30 12/01/2024tive Cyanocobalamin 1000 MCG/ML1 mL Injection once a monthActivetiZANidine HCl 4 MG TAKE 2 TABLETS BY MOUTH EVERY NIGHT AT BEDTIME; Duration: 30ActiveDicyclomine HCl 20 MG1 tablet Orally QID; Duration: 30 10/23/2024tiveFerrous Sulfate 325 (65 Fe) MG1 tablet Orally [...] alcohol in the p ast year? No Azooqc0NhryjribcadtrhLslhvgvvNESOR-K (Standard) Question Answer Notes Did you have a drink containing alcohol in the p ast year? No Otwtzd4NlglhyjvzrfpktXtgqaqrf Problems Problem Type SNOMED Code ICD Code Onset Dates Problem Status W/U Status Risk Notes Problem Iron deficiency anemia (28554610 ) Iron deficiency anemia, unspecified (D50.9) ActiveconfirmedProblemDehydration (47907193)Dehydration (E86.0)Activeconfirmed ProblemOtitis externa (8301084)Unspecified otitis externa, unspecified ear (H60.90)ActiveconfirmedProblemMarginal perforation of tympanic membrane (02164316)Other marginal perforations of tympanic membrane, left ear (H72.2X2) ActiveconfirmedProblemAcute frontal sinusitis (29138358)Acute recurrent frontal sinusitis (J01.11)ActiveconfirmedProblemContracture of ankle joint (disorder) (472003617)Contracture, unspecified ankle (M24.573)ActiveconfirmedProblem Cystitis (64279011)Other cystitis without hematuria (N30.80)Activeconfirmed ProblemSprain of lateral collateral ligament of knee (41287931)Sprain of lateral collateral ligament of left knee, initial encounter (S83.422A)Activeconfirmed ProblemAdverse reaction caused by drug (disorder) (76425067)Adverse effect of unspecified drugs, medicaments and biological substances, initial encounter (T50.905A)ActiveconfirmedProblemExposure to communicable disease (076913166) Contact with and (suspected) exposure to other viral communicable diseases (Z20.828)ActiveconfirmedProblemHistory of urinary disease (241393603)Personal history of other diseases of urinary system (Z87.448)ActiveconfirmedProblem Hypertension (53279992)Hypertension (I10)ActiveconfirmedProblemOsteoarthritis (680946308)Osteoarthritis (M19.90)ActiveconfirmedProblemGastroesophageal reflux disease (329000939)GERD (gastroesophageal reflux disease) (K21.9)Activeconfirmed ProblemVertigo (626043613)Vertigo (R42)ActiveconfirmedProblemInsomnia (565146765)Insomnia (G47.00)ActiveconfirmedProblemHiatal hernia (59889894)Hiatal hernia (K44.9)ActiveconfirmedProblemKnee pain (3053737695)Knee pain (M25.569) ActiveconfirmedProblemDischarge from right nipple (08689665855397475)Discharge from right nipple (N64.52)ActiveconfirmedProblemMigraine (19182964)Migraine (G43.909)ActiveconfirmedProblemKidney stone (39640228)Kidney stone (N20.0)Active confirmedProblemColitis (69794474)Colitis (K52.9)ActiveconfirmedProblemVaginitis (85534077)Vaginitis (N76.0)ActiveconfirmedProblemUrticaria (294372462)Urticaria (L50.9)ActiveconfirmedProblemWell adult (573997015)Well adult (Z00.00)Active confirmedProblemAcute kidney injury (77447408)Acute kidney injury (N17.9)Active confirmedProblemChronic pancreatitis (997064167)Chronic pancreatitis (K86.1) ActiveconfirmedProblemHypoglycemia (623409121)Hypoglycemia (E16.2)Active confirmedProblemPre-surgery evaluation (914768958)Pre-op exam (Z01.818)Active confirmedProblemPain in limb (08161753)Arm pain, left (M79.602)Activeconfirmed ProblemDiverticulitis (38132479)Diverticulitis (K57.92)ActiveconfirmedProblem Otitis media of left ear (0113153966328930)Otitis media of left ear (H66.92) ActiveconfirmedProblemPlantar fasciitis (252126009)Plantar fasciitis (M72.2) ActiveconfirmedProblemPyelonephritis (38560798)Pyelonephritis (N12)Active confirmedProblemAcute gastric ulcer (92949869)Acute gastric ulcer (K25.3)Active confirmedProblemSeasonal allergic rhinitis (596109343)Allergic rhinitis, seasonal (J30.2)ActiveconfirmedProblemIron deficiency anemia (35985911)Anemia, iron deficiency (D50.9)ActiveconfirmedProblemCommon migraine (61596310)Common migraine (G43.009)ActiveconfirmedProblemMicrocytic anemia (880559861)Microcytic anemia (D50.9)ActiveconfirmedProblemDiverticular disease (917132654)Diverticular disease (K57.90)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 artery occlusion, 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)ActiveconfirmedProblemVaginal dryness (02190822)Vaginal dryness (N89.8) ActiveconfirmedProblemPeripheral vertigo (43077479)Vertigo, peripheral (H81.399) ActiveconfirmedProblemCobalamin deficiency (942731504)Cobalamin deficiency (E53.8)ActiveconfirmedProblemEssential hypertension (57115608)BP (high blood pressure) (I10)ActiveconfirmedProblemOvarian cyst (18750961)Cyst, ovarian (N83.209)ActiveconfirmedProblemDisorder of sacrum (93832137)Low back derangement syndrome (M53.86)ActiveconfirmedProblemGastrojejunal ulcer (26888994) Gastrojejunal ulcer (K28.9)ActiveconfirmedProblemHistory of artificial joint (734110588)Joint replaced (Z96.60)ActiveconfirmedProblemInversion of right nipple (42059687351588023)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)Activeconfirmed ProblemDisease caused by Severe acute respiratory syndrome coronavirus 2 (disorder) (988789952)COVID-19 virus infection (U07.1)ActiveconfirmedProblemLow back pain (158001303)Low back pain, unspecified (M54.50)Activeconfirmed Vital Signs Temperature 98.3 degrees Fahrenheit 07/19/2025 Blood pressure qczxqrcan02 mm Hg08/14/20259146Muakej81 in08/14/2025lood pressure jgrlonyd648 mm Hg08/14/20256250Jcjsnh136.0 lbs110/14/2024BMI27.27 kg/m208/14/2025 Encounters Encounter Location Date Provider Diagnosis [facility] [address] [place] [address] 09/14/2024 Malachi Hoy Migraine G43.909 [facility] [address] [place] [address] 09/22/2024 Malachi Hoy Dehydration E86. 0 [facility] [address] [place] [address] 09/27/2024 Malachi Tariky [facility] [place] [address] 12/05/2024[facility] [place] [address]/[facility] [place] [address]/02/2025[facility] [place] [address]/03/2025[facility] [place] [address]/[facility] [place] [address]/05/2025 [facility] [place] [address] 02/05/2025Doug HoyDehydration E86.0[facility] [place] [address]/08/2025Doug HoyNephrolithiasis N20.0[facility] [place] [place] [address]/ [facility] [place] [place] [address]/01/2025[facility]BG[facility] [facility] [place] [address]/01/2025Doug HoyChronic pancreatitis K86.1[facility] [facility] [place] [address]/ Malachi HoyNephrolithiasis N20.0[facility] [facility] [place] [address]/oug HoyNausea & vomiting R11.2[facility] [place] [facility] [place] [address]/Doug Hoy Nephrolithiasis N20.0 and Well adult Z00.00[facility] [facility] [place] [address]/11/2024Doug HoyUTI (urinary tract infection), uncomplicated N39.0 ; Dysuria R30.0 and Hypertension E65[place] [address] [facility] [place] [address]/ Malachi HoyGastroenteritis K52.9BLinda [place] [address] [place] [address]/Doug HoyGastroenteritis K52.9 and Urinary frequency R35.0[place] [address] [facility] [place] [address]/Doug HoyHypertension I10 ; Acute gastric ulcer K25.3 ; Hypoglycemia E16.2 ; GERD (gastroesophageal reflux disease) K21.9 and Hyperglycemia R73.9[address] [place] [address]/Doug HoyDehydration E86.0 and Kidney stone N20.0[place] [address] [facility] [place] [address]/ Malachi HoyFlank pain R10.9 ; Syncope R55 and Hyperglycemia R73.9[facility] [place] [facility] [place] [address]/Doug HoyUTI (urinary tract infection), uncomplicated N39.0 and Dysuria R30.0[facility] [place] [place] [address]/06/2025Doug Hoy Abdominal pain R10.9 and Kidney stone N20.0[facility] [place] [place] [address]/01/2025Doug HoyFlank pain R10.9 ; UTI (urinary tract infection), uncomplicated N39.0 ; Dysuria R30.0 and Joint repl aced Z96.60[facility] [place] [place] [address]/12/2024Doug HoyNephrolithiasis N20.0[facility] [address] [place] [facility] [place] [address]/02/2025Doug HoyDehydration E86.0 [facility] [place] [place] [address] 12/21/2024Doug HoyDehydration E86.0 and Nephrolithiasis N20.0[facility] [place] [place] [address]/01/2025Doug Hoy Nephrolithiasis N20.0[facility] [place] [place] [address]/05/2025Doug HoyAcute kidney injury N17.9[facility] [place] [place] [address]/ Malachi HoyLow back derangement syndrome M53.86[facility] [place] [place] [address]/oug HoyAcute bronchitis, unspecified organism J20.9[facility] [place] [address]Doug HoyGastroenteritis K52.9 Assessments Encounter Date Diagnosis (ICD Code) Assessment Notes Treatment Notes Treatment Clinical Notes Section Notes 09/05/2024 Low back derangement syndrome (I CD-10 - M53.86) 4Acute bronchitis, unspecified organism (ICD-10 - J20.9)Rest and drink more liquids, especially water. You may use a humidifier or vaporizer to help keep the drainage moist. Lyzw-bxy-cufyyid Nasal Saline may help the stuffy and runny nose. Use Ibuprofen and or Tylenol as needed for fever, chills, body aches or pain. Children 5 years old should not be given glhv-jla-rxrwing cough and cold medications such as guaifenesin and dextromethorphan. If you're over age 5, you may try just-msw-ptgvate cold medications such as guaifenesin and dextromethorphan, [...] go to the emergency room or call [phone]/ Gastroenteritis (ICD-10 - K52.9)Get plenty of rest. Stay hydrated by sucking on ice chips or taking small sips of water. You can also try drinking clear soda, clear broths or noncaffeinated sports drinks. Stop eating solid foods for a few hours to let your stomach settle. East back into eating by eating bland, wxwz-ou-xzlglf foods like crackers, toast, gelatin, bananas, rice and chicken. Try to avoid foods/substances including dairy products, caffeine, alcohol, nicotine and fatty or highly seasoned foods. Medications such as ibuprofen or tylenol can make your stomach more upset, so use sparingly if at all. Also avoid uqkt-agp-xkmosxf anti-diarrheal medications because it can make it harder for your body to eliminate the virus.09/27/2024Nausea & vomiting (ICD-10 - R11.2) 10/23/2024Gastroenteritis (ICD-10 - K52.9)Get plenty of rest. Stay hydrated by sucking on ice chips or taking small sips of water. You can also try drinking clear soda, clear broths or noncaffeinated sports drinks. Stop eating solid foods for a few hours to let your stomach settle. East back into eating by eating bland, ftit-ik-rhfzud foods like crackers, toast, gelatin, bananas, rice and chicken. Try to avoid foods/substances including dairy products, caffeine, alcohol, nicotine and fatty or highly seasoned foods. Medications such as i buprofen or tylenol can make your stomach more upset, so use sparingly if at all. Also avoid akpg-pgl-uyzikxw anti-diarrheal medications because it can make it harder for your body to eliminate the virus.10/26/2024Gastroenteritis (ICD-10 - K52.9)Get plenty of rest. Stay hydrated by sucking on ice chips or taking small sips of water. You can also try drinking clear soda, clear broths or noncaffeinated sports drinks. Stop eating solid foods for a few hours to let your stomach settle. East back into eating by eating bland, izpg-mk-rsviqi foods like crackers, toast, gelatin, bananas, rice and chicken. Try to avoid foods/substances including dairy products, caffeine, alcohol, nicotine and fatty or highly seasoned foods. Medications such as ibuprofen or tylenol can make your stomach more upset, so use sparingly if at all. Also avoid iyqc-dpp-egqhpdz anti-diarrheal medications because it can make it harder for your body to eliminate the virus.10/26/2024Urinary frequency (ICD-10 - R35.0)12/01/2024 Hypertension (ICD-10 - I10)5Acute gastric ulcer (ICD-10 - K25.3) 12/07/2024Nephrolithiasis (ICD-10 - N20.0)12/07/2024Well adult (ICD-10 - Z00.00) 12/11/2024Nephrolithiasis (ICD-10 - N20.0)12/13/2024Dehydration (ICD-10 - E86.0) 12/21/2024Dehydration (ICD-10 - E86.0)12/21/2024Nephrolithiasis (ICD-10 - N20.0) 01/12/2025Nephrolithiasis (ICD-10 - N20.0)01/16/2025ute kidney injury (ICD-10 - N17.9)03/12/2025UTI (urinary tract infection), uncomplicated (ICD-10 - N39.0) [...] until they are finished. You can use zevc-zvx-avozwcl acetaminophen or ibuprofen if needed for pain. You should follow up with your Primary Care Physician or return to clinic if not improving in the next 3-5 days.09/14/2024 Migraine (ICD-10 - G43.909)09/22/2024ehydration (ICD-10 - E86.0)02/05/2025 Dehydration (ICD-10 - E86.0)04/20/2025Nephrolithiasis (ICD-10 - N20.0)08/14/2025 Chronic pancreatitis (ICD-10 - K86.1)08/27/2025Nephrolithiasis (ICD-10 - N20.0) 05/04/2025Dehydration (ICD-10 - E86.0)05/04/2025Kidney stone (ICD-10 - N20.0) 05/31/2025Flank pain (ICD-10 - R10.9)needs 2 L NS if not better tomorrow as julia 05/31/2025Syncope (ICD-10 - R55)worse with standing up - want to hold off on testsing - encourage to add salt07/19/2025bdominal pain (ICD-10 - R10.9) 07/19/2025Kidney stone (ICD-10 - N20.0)08/14/2025Flank pain (ICD-10 - R10.9) 06/07/2025UTI (urinary tract infection), uncomplicated (ICD-10 - N39.0)Drink [...] until they are finished. You can use scxm-mlq-mugzrbp acetaminophen or ibuprofen if needed for pain. You should follow up with your Primary Care Physician or return to clinic if not improving in the next 3-5 days.06/07/2025Dysuria (ICD-10 - R30.0)08/14/2025UTI (urinary tract infection), uncomplicated (ICD-10 - N39.0) [...] until they are finished. You can use yiqt-rnh-soulxcc acetaminophen or ibuprofen if needed for pain. You should follow up with your Primary Care Physician or return to clinic if not improving in the next 3-5 days.05/31/2025 Hyperglycemia (ICD-10 - R73.9)03/12/2025Dysuria (ICD-10 - R30.0)03/12/2025 Hypertension (ICD-10 - I10)12/01/2024Hypoglycemia (ICD-10 - E16.2)12/01/2024GERD (gastroesophageal reflux disease) (ICD-10 - K21.9)08/14/2025Dysuria (ICD-10 - R30.0)08/14/2025Joint replaced (ICD-10 - Z96.60)12/01/2024Hyperglycemia (ICD-10 - R73.9)12/07/2024OtherDrink plenty of water. Avoid [...] until they are finished. You can use hvbu-fkh-cogdedk acetaminophen or ibuprofen if needed for pain. You should follow up with your Primary Care Physician or return to clinic if not improving in the next 3-5 days. Plan Of Treatment Pending Test Test Name Order Date MRC 08/14/2025 HEMOGLOBIN A1C (GLYCO) 12/07/2024 LIPID PANEL (CHOL/TRIG/HDL/LDL) 12/07/19 CBC WITH DIFF (EXP 08/2025) 12/07/2024 CT Abdomen and Pelvis w/o contrast [...] Coverage End Date [employer] [address] [address] [place] [address] [id number] Mando Moore Spouse - patient is the spouse of the insured Medications Administered Medication Instructions Date of Administration Dosage Notes Ceftriaxone 1 gram gDexamethasone, 4mg/mL mg8 mgDexamethasone, 4mg/mL [id number]/480 bg07Ezblcka-0922/480 mz12Ikdyjzooc 5 gnGeteyapgi49/10/20232 mLPromethazine 25mg04/325 mg Promethazine 25mg525 mgPromethazine 25mg/525 mgPromethazine 25mg/525 mgPromethazine 25mg52 mLPromethazine 25mg525 mgPromethazine 25mg/525 mgPromethazine, 25 mg mL25 Promethazine, 25 mg [...] shoul luc M62.419 Surgical History Surgery Date(Month/Year) Gastric Bypass 2017 Left Knee Replacement x 2 EGD10/27/2023Superficial Eoxwzaaruzwnu67/24GallbladderAppendixHysterectomy Hospitalization History Reason Date(Month/Year) Ulcerative Colitis 2023 see above
--- OUTSIDE RECORDS SUMMARY | 2025-09-05 07:51 | XMS_ITS | CCD ---
Author Organization [facility] Care Team Providers Care Ophthalmic Technician Name Role Phone TAMEZ ZHANE W Unavailable [...] Primary Care Unavailable STEENHOFF, ARIADNE Admitting Unavailable STEENHOFF ARIADNE Attending Unavailable SELF, REFERRED Referring Unavailable Kevin Lane Attending Unavailable Kevin Lane Admitting Unavailable NASIR THACKER Referring Unavailable HOY, ARLETH Primary Care Unavailable Gehling, Kevin Attending Unavailable Kevin Lane Admitting Unavailable ARLETH ACHARYA Primary Care Unavailable KAVITHAYBETHARLETH Referring Unavailable Madaying, Kevin Referring Unavailable Kevin Lane Attending Unavailable Madaying, Kevin Admitting Unavailable SELF, REFERRED Primary Care Unavailable Madaying, Kevin Referring Unavailable Kevin Lane Attending Unavailable Gehling, Kevin Admitting Unavailable SELF, REFERRED Primary Care Unavailable SELF, REFERRED Primary Care Unavailable FORSHEY, JORDEN D Admitting Unavailable FORSHEY, JORDEN D Attending Unavailable SELF, REFERRED Referring Unavailable SELF, REFERRED Primary Care Unavailable FORSHEY, JORDEN D Admitting Unavailable FORSHEY, JORDEN D Attending Unavailable SELF, REFERRED Referring Unavailable SELF, REFERRED Referring Unavailable Madaying, Kevin Attending Unavailable Gehling, Kevin Admitting Unavailable SELF, REFERRED Primary Care Unavailable Geocing, Kevin Admitting Unavailable Kevin Lane Attending Unavailable KAVITHAYBETHARLETH Primary Care Unavailable HOYBETHARLETH Referring Unavailable Kevin [...] Physician ROSS ., DR ORTIZ Consulting Unavailable [facility] Primary Care Unavailable HAWKINS ., DR ORTIZ Admitting Unavailable HAWKINS ., DR ORTIZ Attending Unavailable HOY ., DR REINOSO Consulting Unavailable HOY ., DR REINOSO Attending Unavailable HOY ., DR REINOSO Primary Care Unavailable HOY ., DR REINOSO Admitting Unavailable HAWKINS ., DR ORTIZ Admitting Unavailable HAWKINS ., DR ORTIZ Consulting Unavailable [facility] Primary Care Unavailable HAWKINS ., DR ORTIZ [...] ORTIZ Attending Unavailable JORDEN ECHOLS Consulting Unavailable SHARP MARAH Consulting Unavailable MD Arleth Acharya Primary Care Provider [phone] MD Arleth Acharya Referring Provider [phone] DO Calderón Attending Provider MD Arleth Acharya Primary Care Provider [phone] DO Antonio Attending Provider MD Harry Pettit V Attending Provider BILL BROWN Referring Unavailable HOY, ARLETH M Primary Care Unavailable BILL BROWN Attending Unavailable BILL BROWN Admitting Unavailable HOY, ARLETH M Primary Care Unavailable Arleth Acharya MD Primary Care Provider [phone] Unavailable Primary Care Provider UnavailArleth Faye MD Attending Provider Arleth Acharya Attending Unavailable Arleth Acharya M Admitting Unavailable ADORE CHOI Attending Unavailab allan Narayananloevelina GENTILE, Noms Provider Primary Care Provi luc ARLETH ACHARYA Primary Care Unavailable RUSSELL PEREZ Attending Unavailable KAVITHAY, ARLETH M Primary Care Unavailable GLEN OSEI Attending Unavailable ALYSA POWELL Admitting Unavailable HOY, ARLETH M Primary Care Unavailable DIANA GARCIA Attending Unavailable PATRIZIA ARLETH M Primary Care Unavailable GAVINO SESAY Attending Unavailable EDUARDO FREEDMAN Attending Unavailable AZUCENA VILLASENOR Attending Unavailable AZUCENA VILLASENOR Referring Unavailable LYNNE, MONIQUE Referring Unavailable MORALESCURLY MCFARLANE Attending Unavailable CURLY MORALES Referring Unavailable ANGELARUKHSANA Referring Unavailable SHENDGE, VITHAL Attending Unavailable MIGDALIA MOE Attending Unavailable ANGELARUKHSANA Attending Unavailable ANGELARUKHSANA Attending Unavailable MIGDALIA MOE Attending Unavailable Allergies Allergy ClassificationReported Allergen(s)Allergy TypeDate of OnsetReaction(s) FacilityNSAIDs (1 source)Ketorolac; Translations: [ketorolac]Drug AllergyUnknown (qualifier value)[facility] (1 source)Meperidine; Translations: [meperidine]Drug AllergyMain Campus Medical CenterProchlorperazine (1 source)Prochlorperazine; Translations: [prochlorperazine]Drug Allergy Hallucinations (finding)[facility] (8 sources)ketorolac; Translations: [Toradol]Drug Ztehztq71-16-6687Tbvxydx (qualifier value)[facility] (6 sources)meperidine; Translations: [Demerol HCl]Drug AllergyHolmes County [facility] (2 sources)MeperidineDrug Dvgyvkq79-55-3341IppProtestant [facility]acon[facility] (1 source)DesonideDrug AllergyC[facility] Clinic Repository (14 sources)Ketorolac; Translations: [ketorolac]Drug Apasiev99-34-3788Rtar, Shortness of breathAshtabula County Medical Center (16 sources)Meperidine; Translations: [meperidine]Drug Mluzbue36-03-8913LnxwSt. Elizabeth Hospital (13 sources)Prochlorperazine; Translations: [prochlorperazine]Drug Allergy 08-19-2421Myuvkmdjkvtkik (finding), HallucinationsExec[facility] (2 sources)Ketorolac; Translations: [KETOROLAC TROMETHAMINE]Drug Allergy 44-56-8527GvycIPFStafford Hospital (8 sources)Desonide; Translations: [DESONIDE]Propensity to adverse reactions 24-73-3820RECPSSM Health [facility] (7 sources)Ketorolac trometamolPropensity to adverse ixdbnksqy48-73-5579VshpFFJF Healthcare (7 sources)MeperidineDrug Gumfdyi94-89-4337AhdtHKJU Healthcare (1 source)No Known Medication Allergies; Translations: [No Known Medication Allergies]Propensity to adverse reactions (disorder)[facility] Medications Current Medications MedicationDrug Class(es)DatesSig (Normalized)Sig (Original)acetaminophen 500 mg oral tablet (4 sources)take 2 tablets by mouth every four hours as neededacetaminophen (Tylenol) 500 MG tablet 1,000 mg every 4 (four) hours if needed Activetake 2 tablets by mouth every six hours as needed for painacetaminophen (TYLENOL) 500 MG tablet Take 2 tablets by mouth every 6 hours as needed for Pain 0 Active acetaminophen 325 mg / HYDROcodone bitartrate 7.5 mg oral tablet (12 sources)Opioid AgonistStart: 07-28-2025 End: 02-14-8612kfzu 1 tablet by mouth every eight hours as neededHYDROcodone- acetaminophen ([place]) 7.5-325 MG tablet Take 1 tablet by mouth every 8 (eight) hours ifneeded 07/28/2025 08/27/2025 ActiveStart: 20-45-6950Oioel 325 mg-5 mg oral tablet 1 tab(s), Oral, q12hr for pain, 20 tab(s), Refill(s) 0, 1 to 2 tabs every 4 to 6 hours as needed for pain, Pain, [id number], 167, cm, 09/13/23 12:07:00 EST, Height/Length Dosing, 70.5, kg, 09/13/23 12:07:00 EST, Weight Dosing Start Date: 09/24/23 Status: OrderedStart: 89-96-2523ntui 1 tablet by mouth twice daily as needed for painStart: 42-04-7739Pkcvz 325 mg-5 mg oral tablet 1 tab(s), Oral, BID Pain 8-10, 20 tab(s), Ref[facility](s) 0, [id number], 167, cm, 06/29/22 9:28:00 EDT, Height/Length Dosing, 69, kg, 06/29/22 9:28:00 EDT, Weight Dosing Start Date: 07/27/22 Status: OrderedStart: 03-43-2824xjec 1 tablet by mouth every six hoursNorco 325 mg-5 mg oral tablet tab(s), Oral, q6hr, Refill(s) 0 Start Date: 06/29/22 Status: OrderedStart: 08-06-2020 End: 41-41-7133kxgn 1 tablet by mouth every eight hours as needed for pain HYDROcodone-acetaminophen (NORCO) 5-325 MG per tablet Take 1 tablet by mouth every 8 hours as needed for Pain. 0 08/06/2020 05/14/2024 Activeacetaminophen 325 mg / oxyCODONE hydrochloride 5 mg oral tablet (1 source)Opioid AgonistStart: 69-09-7620rnkDYCRWG-acetaminophen (PERCOCET) 5- 325 MG per tablet Take 1 tablet by mouth every 6 hours as needed for Pain. Max Daily Amount: 4 tablets 0 02/26/2021 ActiveAir Cast (3 sources)Start: 10-02-5417Fpk Cast Active 0 .Route 1 January 06, 2024 12:00am As directedAir Cast unit (1 source)Start: 34-55-1804Eog Cast unit Active 0 .Route 1 January 06, 2024 12:00am As directedamitriptyline hydrochloride 100 mg oral tablet (14 sources)Tricyclic AntidepressantStart: 31-36-1651myzj 1 tablet by mouth once dailyamitriptyline (ELAVIL) 100 MG tablet Take 1 tablet by mouth nightly 0 10/21/2023 ActiveStart: 85-11-0696qcnd 1 tablet by mouth once daily at bedtime Start: 14-76-3984cxgl 1 mg by mouth once daily at bedtimeamitriptyline 25 mg Tab mg tab(s), Oral, Once a day (at bedtime), Refills(s) 0 Start Date: 06/29/22 S tatus: OrderedCalcium (3 sources)Phosphate Binder, Calciumcalcium 200 MG tablet Take by mouth Active calcium acetate (5 sources)Start: 11-65-4223agrpapo acetate mg, Oral, Refills(s) 0 Start Date: 06/29/22 Status: Orderedcalcium carbonate 1500 mg / cholecalciferol 200 unt oral tablet (5 sources)Vitamin DStart: 03-03-2421ezla 1 tablet by mouth once dailyCalcium Citrate / Vitamin D (1 source)Calcium Citrate-Vitamin D (CALCIUM CITRATE + D PO) Take by mouth 2 times daily 0 Activecephalexin 500 mg oral capsule (4 sources)Cephalosporin AntibacterialStart: 08-13-2025 End: 77-17-7351eozrdinzjp (Keflex) 500 MG capsule Take 500 mg by mouth in the morning and 500 mg at noon and 500 mg in the evening and 500 mg before bedtime. 08/13/2025 08/23/2025 ActiveStart: 48-46-2236htnz 1 capsule by mouth every twelve hoursKeflex 500 mg Cap 500 mg = 1 cap(s), Oral, q12hr, # 20 cap(s), Refills(s) 0, Pharmacy: [id number], 167, cm, 09/13/23 12:07:00 EST, Height/Length Dosing, 70.5, kg, 09/13/23 12:07:00 EST, Weight Dosing Start Date: 10/06/23 Status: OrderedchlordiazePOXIDE hydrochloride 5 mg / clidinium bromide 2.5 mg oral capsule (1 source)Anticholinergic, BenzodiazepinechlordiazePOXIDE-clidinium (LIBRAX) 5- 2.5 MG per capsulecitalopram 40 mg oral tablet (2 sources)Serotonin Reuptake InhibitorStart: 90-02-7739ygzl 40 mg by mouth once dailyCelexa 40 [...] mg/mg topical gel (1 source)Nonsteroidal Anti-inflammatory DrugStart: 49-48-8670lpueblxwyd sodium (VOLTAREN) 1 % GEL Apply 1 Application topically 4 times daily as needed 0 07/06/2019 Activedicyclomine hydrochloride 20 mg oral tablet (1 source)AnticholinergicStart: 32-68-2744mhum 1 tablet by mouth every four hours [...] oral capsule (6 sources)Anti-epileptic AgentStart: 01-06-2024 End: 16-57-4062rlyw 1 capsule by mouth twice dailygabapentin (NEURONTIN) 300 MG capsule Take 1 capsule by mouth 2 times daily. 0 01/06/2024 05/14/2024 Active Start: 70-52-1624xdlf 1 capsule by mouth once dailygabapentin 300 mg Cap 300 mg = 1 cap(s), Oral, Daily, Refills(s) 0 Start Date: 03/07/24 Status: OrderedStart: 14-67-0703Cxoaupthmn Active MG PO January 06, 2024 12:00amlansoprazole 15 mg delayed release oral capsule (1 source)Proton Pump Inhibitortake 1 capsule by mouth twice dailylansoprazole (PREVACID) 15 MG delayed release capsule Take 1 capsule by mouth 2 times daily 0 Activelidocaine 0.05 mg/mg medicated patch (1 source)Antiarrhythmic, Amide Local AnestheticStart: 53-58-7997gxopf 1 dose transdermal route once daily as [...] mg oral tablet (6 sources)Dopamine-2 Receptor AntagonistStart: 97-90-5596Phsxnpmn Vitamin (multivitamin) tablet (3 sources)take 1 tablet by mouth once dailyMultiple Vitamin (multivitamin) tablet Take 1 tablet by mouth Daily ActiveMultiple Vitamins-Minerals (MULTIVITAMIN ADULT PO) (1 source)Multiple Vitamins-Minerals (MULTIVITAMIN ADULT PO) Take by mouth daily 0 ActiveMultivitamin (Multiple Vitamin) Tablet (5 sources)Start: 23-15-8566bjan 1 tablet by mouth once dailyStart: 05-27-2023 take 1 tablet by mouth once dailyMultivitamin (Multiple Vitamin) Tablet Active 1 TAB PO Daily May 27, 2023 12:00amMultivitamin preparation (5 sources)Start: 25-51-8658ttggmtrvojhw Daily, Refill(s) 0 Start Date: 06/29/22 Status: Orderednirmatrelvir/ritonavir (PAXLOVID, 150/100,) 10 x 150 MG & 10 x 100MG TBPK (1 source)take 2 tablets by mouth twice dailynirmatrelvir/ritonavir (PAXLOVID, 150/100,) 10 x 150 MG & 10 x 100MG TBPK Take 2 tablets by mouth 2 times daily 0 Activenystatin 533678 unt/ml oral suspension (1 source)Polyene Antifungalnystatin (MYCOSTATIN) 168860 UNIT/ML suspension Take by mouth 0 Activeondansetron 4 mg disintegrating oral tablet (4 sources)Serotonin-3 Receptor AntagonistStart: 36-78-5474hpfcevzoadl ODT (Zofran-ODT) 4 MG disintegrating tablet every 6 (six) hours 09/06/2024 Active Start: 21-42-0657glsr 1 tablet by mouth every four hours as needed for nausea ondansetron (ZOFRAN) 4 MG tablet Take 1 tablet by mouth every 4 hours as needed for Nausea or Vomiting 15 tablet 0 02/25/2018 ActiveoxyCODONE hydrochloride 5 mg oral tablet (2 sources)Opioid AgonistStart: 07-74-4484vmwYCVGXL 5 mg Tab Refills(s) 0 Start Date: 09/13/23 Status: Orderedpantoprazole 40 mg delayed release oral tablet (14 sources)Proton Pump InhibitorStart: 85-26-3390iugi 1 tablet by mouth once dailyStart: 50-73-6793kigz 40 mg by mouth once dailypantoprazole 40 [...] 0 Active pregabalin 75 mg oral capsule (3 sources)Start: 07-28-2025 End: 92-22-2900uwigvcmrxc (Lyrica) 75 MG capsule Take 75 mg by mouth in the morning and 75 mg at noon and 75 mg inthe evening and 75 mg before bedtime. 07/28/2025 08/27/2025 Activepromethazine hydrochloride 25 mg oral tablet (14 sources)PhenothiazineStart: 97-92-3908nsyh 1 mg rectal route every six hours promethazine 25 mg Supp mg supp, Rectal, q6hr, Refills(s) 0 Start Date: 06/29/22 Status: OrderedStart: 55-21-8444bruv 1 tablet by mouth every four to six hours promethazine (Phenergan) 25 MG tablet every 12 (twelve) hours Activesucralfate 1000 mg oral tablet (6 sources)Aluminum ComplexStart: 42-46-9479fyme 1 tablet by mouth four times dailySUMAtriptan 100 mg oral tablet (4 sources)Serotonin-1b and Serotonin-1d Receptor AgonistStart: 03-07-2024 Imitrex 100 mg Tab 100 mg = 1 tab(s), Oral, as needed for Migraine, Refills(s) 0 Start Date: 03/07/24 Status: OrderedStart: 82-95-0947eysj 1 tablet by mouth once as neededSUMAtriptan (IMITREX) 100 MG tablet Take 1 tablet by mouth once as needed for Migraine 0 03/07/2024ctiveStart: 17-99-7160JEAEwbaiure 100 mg Tab Refills(s) 0 Start Date: 09/13/23 Status: Orderedtamsulosin hydrochloride 0.4 mg oral capsule (1 source)alpha-Adrenergic BlockerStart: 64-46-3013dogmelmylm (FLOMAX) 0.4 MG capsule Take 1 capsule by mouth 0 08/10/2023 ActivetiZANidine 4 mg oral tablet (14 sources)Central alpha-2 Adrenergic AgonistStart: 63-60-6577xfth 2 tablets by mouth once daily at bedtimeStart: 76-17-1152dwvg 8 mg by mouth once daily at bedtimeTizanidine Active 8 MG PO Daily at bedtime May 27, 2023 12:00am Start: 87-03-2535dxaf 1 mg by mouth three times dailyZanaflex 4 mg oral capsule mg cap(s), Oral, TID, Refills(s) 0 Start Date: 06/29/22 Status: OrderedStart: 43-48-7650kdYDTffewj (ZANAFLEX) 4 MG tablet Take 1 tablet by mouth as needed 0 08/19/2012 Activetopiramate 50 mg oral tablet (6 sources)Start: 08-46-4733Vsmhn: 87-10-0945Cumadpzetq Active MG PO January 06, 2024 12:00amtake 1 tablet by mouth once dailytopiramate (TOPAMAX) 25 MG tablet Take 25 mg by mouth daily 0 Activetake 50 mg by mouth once dailytopiramate ER (TROKENDI XR) 50 MG CP24 Take 50 mg by mouth daily 0 Activetriamcinolone acetonide 1 mg/ml topical cream (1 source)CorticosteroidStart: 56-29-3578vuhnydbdjcvls (KENALOG) 0.1 % cream Apply 1 Application topically in the morning and 1 Application in the evening. 0 11/22/2023 Activevitamin B12 (11 sources)Vitamin I39Puumy: 24-64-3827mnseopgwygyhuw 1000 MCG/ML injection Start: 41-26-9095mgvcgb 1000 ug by intramuscular injection every 30 daysStart: 24-31-6823zcdekr 1000 ug by intramuscular injection every 30 daysCyanocobalamin (Vitamin B-12) Active 1000 MCG IM Q30D May 27, 2023 12:00amStart: 98-78-4949Uzudimp B12 Refills(s) 0 Start Date: 06/29/22 Status: Ordered Completed/Discontinued Medications MedicationDrug Class(es)DatesSig (Normalized)Sig (Original)ferrous sulfate 325 mg oral tablet (9 sources)Start: 05-27-2023 End: 48-73-6319lgxx 1 tablet by mouth once dailyFerrous Sulfate 325 mg (65 mg iron) Tablet Discontinued 325 MG PO Daily May 27, 2023 12:00am May 28, 2023 11:26amFerrous Sulfate (IRON) 28 MG TABS Take by mouth daily 0 Active hyoscyamine sulfate 0.125 mg sublingual tablet (6 sources)Start: 05-27-2023 End: 48-81-0384vgjq 1 tablet under the tongue every six [...] injection 75 mL (1 source)Start: 05-01-2024 End: 01-47-8474qkatzhewk (ISOVUE-370) 76 % injection 75 mL Problems Active Problems Problem ClassificationProblemDateDocumented DateEpisodic/ChronicAnxiety disorders (6 sources)Anxiety; Translations: [Anxiety disorder, unspecified]Onset: 644143-59-2902RshcvrvJcagyyqfhnkiz of surgical procedures or medical care (4 sources)Iron deficiency anemia; Translations: [Other complications of other bariatric procedure]50-71-5239NbtiwqpnC Codes: Fall (1 source)FallOnset: 47-95-6968Xtsgiwudl hypertension (1 source)Essential (primary) hypertension; Translations: [ESSENTIAL PRIMARY HYPERTENSION]Onset: 77-06-4263DqvmnfpMhnfceuxtfvpk congenital anomalies (2 sources)Congenital occlusion of ureteropelvic junction; 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, unspecified]Onset: 60-27-2131Rkaxixk Genitourinary symptoms and ill-defined conditions (20 sources)Blood in urine; Translations: [Gross hematuria]Onset: 02-25-2018 EpisodicJoint disorders and dislocations; trauma-related (4 sources)Derangement of right knee; Translations: [Unspecified internal derangement of right knee]95-49-1925DjiadxcYjfb disorders (6 sources)Depressive disorder; Translations: [Major depressive disorder, single episode, unspecified]Onset: 648610-69-2468IjuequxWvru disorders (1 source)Mood disorders; Translations: [DEPRESSION UNSPECIFIED]Onset: 81-93-3540Fpgpws and vomiting (4 sources)Nausea with vomiting, unspecified; Translations: [Vomiting, unspecified]Onset: 09-98-5368UvchjvrpGbwrvzpfzkbfpo (5 sources)Unilateral primary osteoarthritis, left knee; Translations: [UNILATERAL PRIMARY OSTEOARTHRITIS, LEFT KNEE]Onset: 51-08-5505IpzhhecDokll aftercare (5 sources)Aftercare following joint replacement surgery; Translations: [AFTERCARE FOLLOWING JOINT REPLACEMENTSURGERY]Onset: 68-13-0641TxvtyssRbtgo aftercare (1 source)jail (current) use of aspirin; Translations: [USP (CURRENT) USE OF ASPIRIN]Onset: 36-11-4356JhoytqgwFyocu aftercare (2 sources)Other mcfp (current) drug therapy; Translations: [OTHER WIRELESS SALES REPRESENTATIVE (CURRENT) DRUG THERAPY]Onset: 55-21-3306EaylyxehYhzff and unspecified benign neoplasm (2 sources)Benign neoplasm of parotid gland; Translations: [Benign neoplasm of parotid gland]Onset: 49-73-9327LmfbixcmZnmtr connective tissue disease (3 sources)Presence of left artificial knee joint; Translations: [PRESENCE OF LEFT ARTIFICIAL KNEE JOINT]Onset: 51-93-5051NazvbwpMmunl connective tissue disease (3 sources)Presence of unspecified artificial knee joint; Translations: [PRESENCE OF UNSPECIFIED ARTIFICIAL KNEE JOINT]Onset: 42-20-6522XgznphzOuzxk connective tissue disease (1 source)Muscle wasting and atrophy, not elsewhere classified, left lower leg; Translations: [MUSCLE WASTINGAND ATROPHY, NEC, LEFT LOWER LEG]Onset: 04-07-2022 EpisodicOther gastrointestinal disorders (1 source)Irritable bowel syndrome without diarrhea; Translations: [IRRITABLE BOWEL SYND W/O DIARRHEA]Onset: 39-52-8809WunmulvDxvag gastrointestinal disorders (1 source)Bariatric surgery status; Translations: [BARIATRIC SURGERY STATUS] Onset: 30-38-5238PfiybszcMglgv nervous system disorders (2 sources)Complex regional pain syndrome I of left lower limb; Translations: [Complex regional pain syndrome i of left lower limb]Onset: 04-73-0649Ddeoetf Other nervous system disorders (2 sources)Other chronic postprocedural pain; Translations: [Other chronic postprocedural pain]Onset: 94-60-4858ZzlqpuwXtbsp nervous system disorders (1 source)Other acute postprocedural pain; Translations: [OTHER ACUTE POSTPROCEDURAL PAIN]Onset: 60-34-2698TmymdwftSlodl non-traumatic joint disorders (4 sources)Pain in left knee; Translations: [PAIN IN LEFT KNEE]Onset: 06-03-2022 EpisodicOther non-traumatic joint disorders (1 source)Effusion, left knee; Translations: [EFFUSION, LEFT KNEE]Onset: 18-50-6137OqehqnqqOnswv non-traumatic joint disorders (2 sources)Pain in right knee; Translations: [Pain in joint, lower leg] 97-74-6881VokgtjykWugsk nutritional; endocrine; and metabolic disorders (5 sources)Morbid cgedvgb16-97-4042RjkddyiTglxx screening for suspected conditions (not mental disorders or infectious disease) (2 sources)Patient encounter status; Translations: [Encounter for screening mammogram for malignant neoplasm of breast]72-70-5026YyilgyznLfhxmrkl codes; unclassified (1 source)Acquired absence of both cervix and uterus; Translations: [ACQUIRED ABSENCE BOTH CERVIX AND UTERUS]Onset: 60-75-6800SybtmuzoRrqlvpjc codes; unclassified (1 source)Acquired absence of other specified parts of digestive tract; Translations: [ACQ ABSENCE OTH PART DIGESTV TRACT]Onset: 08-95-9245Xwyuzrmh Screening and history of mental health and substance abuse codes (2 sources)Personal history of nicotine dependence; Translations: [PERSONAL HISTORY OF NICOTINE DEPENDENCE]Onset: 19-90-6540TqhzqhrkXqiboly and strains (2 sources)Sprain of unspecified ligament of left ankle, initial encounter; Translations: [Sprain of ankle, unspecified site]77-59-0259CmavgfwiSlhazawosqrb (1 source)C/O POST OP RECHECK - LEFT KNEE.Onset: 04-86-8990Kgqcrwnrzkbw (1 source)C/O POST OP RECHECK - LEFT KNEEOnset: 08-51-6218Ldxyiuhbftzn (5 sources)Asymptomatic microscopic itiyzkxsy16-44-3866Omljoijizqim (1 source)PERSONAL HISTORY OF COVID-19; Translations: [PERSONAL HISTORY OF COVID-19]Onset: 43-40-0345Vsdrukhhlxrb (4 sources)CONTACT W/AND (SUSP) EXPOS COVID-19; Translations: [CONTACT W/AND (SUSP) EXPOS COVID-19]Onset: 09-34-8005Cldvidrniqwc (1 source)COUGH, UNSPECIFIED; Translations: [COUGH, UNSPECIFIED]Onset: 48-43-6716Yjxjgmbzgzej (1 source)Flank pain, left side; Translations: [Flank pain, left side]Onset: 66-72-2911Uoybfenrnrit (1 source)Back Pain, VomitingOnset: 90-79-5732Kqsrdclozojm (2 sources)Presence of neurostimulator; Translations: [Presence of neurostimulator]Onset: 62-43-3110Ikjrpfm tract infections (4 sources)Urinary tract infection, site not specified; Translations: [UTI SITE NOT SPECIFIED]Onset: 49-54-2552NfxntxkvPplcn infection (1 source)COVID-19; Translations: [COVID-19]Onset: 10-09-2022 Past or Other Problems Problem ClassificationProblemDateDocumented DateEpisodic/ChronicAbdominal pain (19 sources)Abdominal pain; Translations: [Unspecified abdominal pain]Onset: 94-62-6495NvpfqybgRxolz and unspecified renal failure (1 source)Acute kidney failure, unspecified; Translations: [Acute kidney failure, unspecified]Onset: 25-79-9029OtdmhjatYfjrclgu of urinary tract (18 sources)Kidney stone; Translations: [Calculus of kidney]Onset: 02-25-2018 EpisodicComplication of device; implant or graft (7 sources)Pain due to internal orthopedic prosthetic devices, implants and grafts, initial encounter; Translations: [Instability of internal left knee prosthesis, initial encounter]Onset: 78-24-1452QcasrwrmJxrjyqaghuwkgocr hemorrhage (1 source)Rectal hemorrhageOnset: 38-36-6703RmqvcdzqAdzzmlc and fatigue (1 source)Other fatigue; Translations: [OTHER FATIGUE]Onset: 85-11-6480Hpqgkcjd Other aftercare (3 sources)Encounter for other specified surgical aftercare; Translations: [ENCOUNTER FOR OTHER SPECIFIED SURGICAL AFTERCARE]Onset: 28-68-5359JghnmciwHyvwn and unspecified benign neoplasm (1 source)Pleomorphic adenoma of parotid gland; Translations: [Benign neoplasm of parotid gland]49-94-8223FxminvtrQvygl connective tissue disease (2 sources)Neuralgia and neuritis, unspecified; Translations: [Neuralgia and neuritis, unspecified]Onset: 27-10-2883WcrhndboFlmmt non-traumatic joint disorders (3 sources)Stiffness of left knee, not elsewhere classified; Translations: [STIFFNESS OF LEFT KNEE, NOT ELSEWHERE CLASSIFIED]Onset: 34-47-4730TohwkmyhJyvqy non-traumatic joint disorders (1 source)Osteophyte, left knee; Translations: [OSTEOPHYTE, LEFT KNEE]Onset: 28-04-4311McfzdpcsBmrqk upper respiratory disease (1 source)Nasal congestion; Translations: [NASAL CONGESTION]Onset: 09-24-2022 EpisodicOther upper respiratory infections (1 source)Acute recurrent frontal sinusitis; Translations: [ACUTE RECURRENT FRONTAL SINUSITIS]Onset: 21-60-0983YcgjhkseIndyeetf codes; unclassified (2 sources)Other specified postprocedural states; Translations: [Other specified postprocedural states]Onset: 39-47-9314SwkovlniTruneqxdg-related disorders (2 sources)Opioid use, unspecified, uncomplicated; Translations: [Opioid use, unspecified, uncomplicated]Onset: 56-24-0297KnxaenxuYzsumir (2 sources)Syncope and collapse; Translations: [Syncope]Onset: 01-11-2025 EpisodicUnclassified (1 source)CONTACT W/AND (SUSP) EXPOS COVID-19; Translations: [CONTACT W/AND (SUSP) EXPOS COVID-19]Onset: 10-06-2022 Results Test NameValueInterpretationReference RangeFacilityRefillon 28-55-8125Uokeoi [id number] Elvi Moore 1980 F Date Provider Department Center 08/22/2025 02706-GATYWMIGDALIA MOE MP PAIN Medical Pavi Family History Problem Relation Age of Onset Brain cancer Mother Breast cancer Sister Kidney cancer Maternal Grandmother Prostate cancer Paternal Grandfather Cancer Father Cancer Sister Family Status - Relation Status Age at Mother Sister Maternal Grandmother Paternal Grandfather Father Sister Reason for Visit and Comments: Med Refill [[id number]]NormalTrumbull Memorial HospitalXR Knee - right 1 or 2 Viewson 11-90-9488Uljyzsl Result: AP and Lateral weight bearing: Bones: [...] trace effusion Impression: Degenerative changes to right knee.[facility] SpringsRadiology Study observation (narrative)[facility] WITH AUTO DIFFERENTIALon 08-12-2025 BASOPHILS ABSOLUTE COUNT (10*3/UL) BY AUTOMATED COUNT0.0 10*3/uLNormal0.0-0.2 [facility] CenterComment on above:Performed By: #### CBCA, CMP #### [facility] ([id number]) [address] [place] [address] 75868UJSVBHRCR RELATIVE PERCENT BY AUTOMATED COUNT0.3 %Normal [facility] CenterComment on above:Performed By: #### CBCA, CMP #### [facility] ([id number]) [address] [place] [address] 01108XAJARVXLWNV DIFFERENTIAL TYPEAUTOMATED DIFFERENTIALNormal [facility] CenterComment on above:Performed By: #### CBCA, CMP #### [facility] ([id number]) [address] [place] [address] 80962Cmjxvyzvybe (Bld) [#/Vol]0.0 10*3/uLNormal0.0-0.4ProMedica Kaiser Foundation HospitalComment on above:Performed By: #### CBCA, CMP #### [facility] ([id number]) [address] [place] [address] 84638THBEGVCODBU RELATIVE PERCENT BY AUTOMATED COUNT0.6 %Normal [facility] CenterComment on above:Performed By: #### CBCA, CMP #### [facility] ([id number]) [address] [place] [address] 54284Xvgtbmkkwcn distribution width (RBC) [Ratio]16.1 %High11.5-15 [facility] CenterComment on above:Performed By: #### CBCA, CMP #### [facility] ([id number]) [address] [place] [address] 39359Wglbqixhap (Bld) [Volume fraction]36.9 %Jpzgeo98-57EjvIoiliyWoman'S Hospital Of TexasComment on above:Performed By: #### CBCA, CMP #### [facility] ([id number]) [address] [place] [address] 34475Uxrqteyowr (Bld) [Mass/Vol]11.9 g/hTHlamsw85.7-15.5PGalion HospitalComment on above:Performed By: #### CBCA, CMP #### [facility] ([id number]) [address] [place] [address] 52425WWWQHCOTCKJ ABSOLUTE COUNT (10*3/UL) BY AUTOMATED COUNT2.7 10*3/uLNormal1.0-3.5PGalion HospitalComment on above:Performed By: #### CBCA, CMP #### [facility] ([id number]) [address] [place] [address] 25427ATAEJKDSYUK RELATIVE PERCENT BY AUTOMATED COUNT34.5 %Normal [facility] CenterComment on above:Performed By: #### CBCA, CMP #### [facility] ([id number]) [address] [place] [address] 72665KJJ (RBC) [Entitic mass]24.8 laHit45-35OlfDrhfckSouthern Ohio Medical CenterComment on above:Performed By: #### CBCA, CMP #### [facility] ([id number]) [address] [place] [address] 79952LIIT (RBC) [Mass/Vol]32.2 g/wWOrpakl61-81TlpEfhltkWoman'S Hospital Of TexasComment on above:Performed By: #### CBCA, CMP #### [facility] ([id number]) [address] [place] [address] 76173VBP (RBC) [Entitic vol]77 gSXan40-643ZsmCwszldSouthern [facility] Medical Center Comment on above:Performed By: #### CBCA, CMP #### [facility] ([id number]) [address] [place] [address] 55860XVNDYCHOY ABSOLUTE COUNT (10*3/UL) BY AUTOMATED COUNT0.7 10*3/uLNormal0.0-0.9[facility] CenterComment on above:Performed By: #### CBCA, CMP #### [facility] ([id number]) [address] [place] [address] 85642RQGEUBSOB RELATIVE PERCENT BY AUTOMATED COUNT8.9 %Normal [facility] CenterComment on above:Performed By: #### CBCA, CMP #### [facility] ([id number]) [address] [place] [address] 89820KVGRLLQQULT ABSOLUTE COUNT BY AUTOMATED COUNT4.4 10*3/uLNormal 1.5-6.6ProWoman'S Hospital Of TexasComment on above:Performed By: #### CBCA, CMP #### [facility] ([id number]) [address] [place] [address] 25878DCNAXKXZIKO RELATIVE PERCENT BY AUTOMATED COUNT55.7 %Normal [facility] CenterComment on above:Performed By: #### CBCA, CMP #### [facility] ([id number]) [address] [place] [address] 17723Tmflhnam mean volume (Bld) [Entitic vol]8.0 fLNormal7-12 [facility] CenterComment on above:Performed By: #### CBCA, CMP #### [facility] ([id number]) [address] [place] [address] 09979Gyiqreyfv (Bld) [#/Vol]309 10*3/eCZmlgtv970-141GktVrmevg [facility]ont HospitalComment on above:Performed By: #### CBCA, CMP #### [facility] ([id number]) [address] [place] [address], [place] [address]HMY COUNT4.80 X10E12/LNormal3.8-5.2PGalion Hospital Comment on above:Performed By: #### CAMILLE, CMP #### [facility] ([id number]) [address] [place] [address], [place] [address]IOS (Bld) [#/Vol]7.8 10*3/uLNormal4-11ProWoman'S Hospital Of TexasComment on above:Performed By: #### CAMILLE, CMP #### [facility] ([id number]) [address] [place] [address], [place] [address]SYJCYBPDPOTWR METABOLIC PANELon 84-36-1678Pspdiqb [Mass/Vol]4.4 g/dLNormal3.2-5.3PGalion HospitalComment on above:Performed By: #### CAMILLE, CMP #### [facility] ([id number]) [address] [place] [address], [place] [address]JDC [Catalytic activity/Vol]96 U/XYniytf42-508AnhJcoubhWoman'S Hospital Of TexasComment on above:Performed By: #### CAMILLE, CMP #### [facility] ([id number]) [address] [place] [address], [place] [address]MED [Catalytic activity/Vol]15 U/LNormal<=31PGalion HospitalComment on above:Performed By: #### CAMILLE, CMP #### [facility] ([id number]) [address] [place] [address], [place] [address]Jjvth gap [Moles/Vol]12 mmol/LNormal5-15ProWoman'S Hospital Of TexasComment on above:Performed By: #### CAMILLE, CMP #### [facility] ([id number]) [address] [place] [address], [place] [address]UFE [Catalytic activity/Vol]19 U/LNormal<=41ProWoman'S Hospital Of TexasComment on above:Performed By: #### CAMILLE, CMP #### [facility] ([id number]) [address] [place] [address] 32381Wrfdtxtwc [Mass/Vol]0.3 mg/dLNormal0.3-1.2PGalion HospitalComment on above:Performed By: #### CAMILLE, CMP #### [facility] ([id number]) [address] [place] [address] 44970Daffxoq [Mass/Vol]9.2 mg/dLNormal8.5-10.5PGalion HospitalComment on above:Performed By: #### CAMILLE, CMP #### [facility] ([id number]) [address] [place] [address] 14347Kzuwecoz [Moles/Vol]100 mmol/DVkxfvp99-818CxhSssuunWoman'S Hospital Of TexasComment on above:Performed By: #### CAMILLE, CMP #### [facility] ([id number]) [address] [place] [address] 41329UL2 [Moles/Vol]25 mmol/QExqrfk92-22KemNqsnxtGalion Hospital Comment on above:Performed By: #### CAMILLE, CMP #### [facility] ([id number]) [address] [place] [address] 93261Vsenfdhbab [Mass/Vol]0.70 mg/dLNormal0.40-1.00ProWoman'S Hospital Of TexasComment on above:Result Comment: METHOD TRACEABLE TO IDMS STANDARD Performed By: #### CAMILLE, CMP #### [facility] ([id number]) [address] [place] [address] 76349NNIB (CKD-EPI) NON-RACE DEPENDENT>^90Normal>=60ProWoman'S Hospital Of TexasComment on above:Result Comment: eGFR not reported due to non- numeric value for Creatinine. Reported eGFR is based on the CKD-EPI 2021 equation that does not use a race coefficient.Performed By: #### CBCA, CMP #### [facility] ([id number]) [address] [place] [address], [place] [address]Dpnxoex [Mass/Vol]94 mg/oNWllajl88-39BpvJwawjsSouthern [facility] Medical Center Comment on above:Performed By: #### CBCA, CMP #### [facility] ([id number]) [address] [place] [address], [place] [address]Jscfoonvx [Moles/Vol]3.9 mmol/LNormal3.5-5.0ProWoman'S Hospital Of TexasComment on above:Performed By: #### CBCA, CMP #### [facility] ([id number]) [address] [place] [address] 55225Hfcgzzq [Mass/Vol]8.2 g/dLHigh6.0-8.0[facility] Comment on above:Performed By: #### CBCA, CMP #### [facility] ([id number]) [address] [place] [address], [place] [address]Dreoig [Moles/Vol]137 mmol/VPssevu598-212BnrGgaxfk [facility] HospitalComment on above:Performed By: #### CBCA, CMP #### [facility] ([id number]) [address] [place] [address] 94416Qgqs nitrogen [Mass/Vol]13 mg/dLNormal5-23ProWoman'S Hospital Of TexasComment on above:Performed By: #### CBCA, CMP #### [facility] ([id number]) [address] [place] [address] 17474MK ABDOMEN AND PELVIS WO CONTon 25-48-1586RU ABDOMEN AND PELVIS WO CONTCT ABDOMEN AND [...] by Jeffy Gabriel MD on 08/12/2025 11:52 PMNormalSouthern [facility] Medical CenterLIPASEon 84-18-0521Ubnqjx [Catalytic activity/Vol]76 U/EJmip53-44 ProMHollywood Community Hospital of HollywoodComment on above:Performed By: #### CAMILLE, CMP #### [facility] ([id number]) [address] [place] [address] 01141PCFH NURSING URINE MACROSCOPIC UAon 10-11-9083JJXBREWOZ JUNIOR NegativeNormalNegativeSouthern Ohio Medical CenterComment on above:Performed By: #### CBCA, CMP #### [facility] ([id number]) [address] [place] [address] 90980LLSGI/HGB NURLargeAbnormalNegDayton Osteopathic Hospital Comment on above:Performed By: #### CBCA, CMP #### [facility] ([id number]) [address] [place] [address] 42441ORKZDXB NURNegativeNormalNegativeSouthern [facility] Center Comment on above:Performed By: #### CBCA, CMP #### [facility] ([id number]) [address] [place] [address] 37331LXTPRGO NURNegativeNormalNegativeSouthern [facility] Center Comment on above:Performed By: #### CBCA, CMP #### [facility] ([id number]) [address] [place] [address] [place] [address]GHAYZIXUG ESTERASE NURSmallAbnormalNegativeSouthern [facility] Medical CenterComment on above:Performed By: #### CAMILLE, CMP #### [facility] ([id number]) [address] [place] [address] 40645XGKJAED NURNegativeNormalNegativeSouthern [facility] Medical Center Comment on above:Performed By: #### CAMILLE, CMP #### [facility] ([id number]) [address] [place] [address] [place] [address]LG NUR8.0Yfhgyo3.0, 6.0, 6.5, 7.0, 7.5, 8.0, 8.5, 5.5ProMedica Kaiser Foundation HospitalComment on above:Performed By: #### CAMILLE, CMP #### [facility] ([id number]) [address] [place] [address] [place] [address]POJYZBM NURTraceAbnormalNegDayton Osteopathic Hospital Comment on above:Performed By: #### CAMILLE, CMP #### [facility] ([id number]) [address] [place] [address] [place] 56578VHUGIYPB GRAVITY NUR1.736Bmqxec5.010, 1.015, 1.020, 1.025 Pro[facility] Foundation HospitalComment on above:Performed By: #### CAMILLE, CMP #### [facility] ([id number]) [address] [place] [address] [place] 24371OVEAVRPIJKZO NUR2.0 E.U./dLNormalSouthern [facility] Medical Center Comment on above:Performed By: #### CAMILLE, CMP #### [facility] ([id number]) [address] [place] [address] 65636YZMT , URINE (NUCG)on 41-79-7622Upmu HCG ( test) Ql (U)NegativeNormalNegative, IndeterminateSouthern [facility] Medical Center Comment on above:Performed By: #### CBCA, CMP #### [facility] ([id number]) [address] [place] [address] 88241KLWCA CULTUREon 63-67-2481Zhhaksiu identified Cx Nom (U)CULTURE RESULTS 10-50,000 ORGANISMS/mL NORMAL UROGENITAL FLORANormalSouthern [facility] Medical Center Comment on above:Performed By: #### CBCA, CMP #### [facility] ([id number]) [address] [place] [address] 95386Innxhu-Zfap 49-12-4582Gnxzli-[id number] Elvi Moore 1980 F Date Provider Department Center 07/24/2025 MIGDALIA PURI MP PAIN Medical Pavi Family History Problem Relation Age of Onset Brain cancer Mother Breast cancer Sister Kidney cancer Maternal Grandmother Prostate cancer Paternal Grandfather Cancer Father Cancer Sister Family Status - Relation Status Age at Mother Sister Maternal Grandmother Paternal Grandfather Father Sister Level of Service:60289 CT OFFICE/OUTPATIENT ESTABLISHED MOD MDM 30 MIN Reason for Visit and Comments: Med Management [[id number]] - Refill [place] Pill Count Follow-up [[id number]] - SCSNormalUniversity of Wilbarger General HospitalOrders Onlyon 35-82-7048Uvruaj [id number] [place] Mooreatha 1980 F Date Provider Department Center 06/25/2025 MIGDALIA PURI MP PAIN Medical Pavi Family History Problem Relation Age of Onset Brain cancer Mother Breast cancer Sister Kidney cancer Maternal Grandmother Prostate cancer Paternal Grandfather Cancer Father Cancer Sister Family Status - Relation Status Age at Mother Sister Maternal Grandmother Paternal Grandfather Father SisterNormalUniversity of Wilbarger General HospitalRefillon [id number] [place] Mooreatha 1980 Date Provider Department Center 06/25/2025 83758-DMCIUMIGDALIA KOTHARI MP PAIN Medical Pavi Family History Problem Relation Age of Onset Brain cancer Mother Breast cancer Sister Kidney cancer Maternal Grandmother Prostate cancer Paternal Grandfather Cancer Father Cancer Sister Family Status - Relation Status Age at Mother Sister Maternal Grandmother Paternal Grandfather Father Sister Reason for Visit and Comments: Med Refill [[id number]]NormalTrumbull Memorial HospitalOrders Onlyon 12-42-4465Rytchu [id number] Elvi Moore 1980 F Date Provider Department Center 05/28/2025 77353-NOLKZMIGDALIA KOTHARI MP PAIN Medical Pavi Family History Problem Relation Age of Onset Brain cancer Mother Breast cancer Sister Kidney cancer Maternal Grandmother Prostate cancer Paternal Grandfather Cancer Father Cancer Sister Family Status - Relation Status Age at Mother Sister Maternal Grandmother Paternal Grandfather Father SisterNormalUniThe Christ HospitalRefillon [id number] Elvi Moore 1980 F Date Provider Department Center 05/28/2025 MIGDALIA PURI MP PAIN Medical Pavi Family History Problem Relation Age of Onset Brain cancer Mother Breast cancer Sister Kidney cancer Maternal Grandmother Prostate cancer Paternal Grandfather Cancer Father Cancer Sister Family Status - Relation Status Age at Mother Sister Maternal Grandmother Paternal Grandfather Father Sister Reason for Visit and Comments: Med Refill [[id number]][facility] SystemBASIC METABOLIC PANELon 04-80-7600Ksxbm gap [Moles/Vol]8 mmol/LNormal5-15ProWoman'S Hospital Of TexasComment on above:Performed By: #### BMP ####[facility] ([address] [place] [address] VIRCalcium [Mass/Vol]8.6 mg/dLNormal8.5-10.5ProMedica Kaiser Foundation HospitalComment on above:Performed By: #### BMP ####[facility] ([address] [place] [address] VIRChloride [Moles/Vol]102 mmol/ZIztvsz52-737ZddSdpfmjWoman'S Hospital Of Texas Comment on above:Performed By: #### BMP ####[facility] ([address] [place] [address] VIRCO2 [Moles/Vol]27 mmol/LLljcjv81-99 [facility] CenterComment on above:Performed By: #### BMP ####[facility] ([address] [address] VIR Creatinine [Mass/Vol]0.74 mg/dLNormal0.40-1.00[facility] CenterComment on above:Result Comment: METHOD TRACEABLE TO IDMS STANDARDPerformed By: #### BMP ####[facility] ([address] [address] VIREGFR (CKD-EPI) NON-RACE DEPENDENT>^90Normal>=60[facility] CenterComment on above:Result Comment: eGFR not reported due to non-numeric value for Creatinine. Reported eGFR is based on the CKD-EPI 2020 equation that does not use a race coefficient.Performed By: #### BMP ####[facility] ([address] [address] VIRGlucose [Mass/Vol]79 mg/fTAgikwj82-40RgpBsschlWoman'S Hospital Of TexasComment on above:Performed By: #### BMP ####[facility] ([address] [address] VIRPotassium [Moles/Vol]3.7 mmol/LNormal3.5-5.0[facility] Comment on above:Performed By: #### BMP ####[facility] ([address] [address] VIRSodium [Moles/Vol]137 mmol/LNormal 134-146ProWoman'S Hospital Of TexasComment on above:Performed By: #### BMP ####[facility] ([address] [address] VIRUrea nitrogen [Mass/Vol]19 mg/dLNormal5-23[facility] Comment on above:Performed By: #### BMP ####[facility] ([address] [place] [address] VIRCBC WITH AUTO DIFFERENTIALon 20-84-6289YOMPWYMDH ABSOLUTE COUNT (10*3/UL) BY AUTOMATED COUNT0.0 10*3/uLNormal 0.0-0.2ProMed[facility] Foundation HospitalComment on above:Performed By: #### CBCA ####[facility] ([address], [id number] VIRBASOPHILS RELATIVE PERCENT BY AUTOMATED COUNT0.2 %NormalSouthern Ohio Medical CenterComment on above:Performed By: #### CBCA ####[address], [place] VIRCELLAVISION DIFFERENTIAL TYPEAUTOMATED DIFFERENTIALNoalSouthern Ohio Medical CenterComment on above: Performed By: #### CBCA ####[facility] ([address], [id number] VIREosinophils (Bld) [#/Vol]0.1 10*3/uLNormal0.0-0.4 [facility] CenterComcorewell health butterworth hospital on above:Performed By: #### CBCA ####[facility] ([address], [place] VIR EOSINOPHILS RELATIVE PERCENT BY AUTOMATED COUNT1.1 %NormalSouthern Ohio Medical CenterComment on above:Performed By: #### CBCA ####[facility] ([address], [id number] VIRErythrocyte distribution width (RBC) [Ratio]16.7 %High11.5-15[facility] CenterComment on above: Performed By: #### CBCA ####[facility] ([address], [place] VIRHematocrit (Bld) [Volume fraction]33.0 %Kpo39-06 [facility] Powers[facility] HospitalComment on above:Performed By: #### CBCA ####[facility] ([address], [id number] VIRHemoglobin (Bld) [Mass/Vol]10.7 g/dLLow11.7-15.5PGalion HospitalComment on above: Performed By: #### CBCA ####[facility] ([address], [place] VIRLYMPHOCYTES ABSOLUTE COUNT (10*3/UL) BY AUTOMATED COUNT2.0 10*3/uLNormal1.0-3.5PGalion HospitalComment on above: Performed By: #### CBCA ####[facility] ([address], [address] VIRLYMPHOCYTES RELATIVE PERCENT BY AUTOMATED COUNT39.6 %NormalProWoman'S Hospital Of TexasComment on above:Performed By: #### CBCA ####[facility] ([address], [place] VIRMCH (RBC) [Entitic mass]25.0 cnYzw66-79MqvAcxgvcSouthern Ohio Medical CenterComment on above:Performed By: #### CBCA ####[facility] ([address], [place] VIRMCHC (RBC) [Mass/Vol]32.5 g/zEOfdtqt13-42 [facility] CenterComment on above:Performed By: #### CBCA ####[facility] ([address], [place] VIRMCV (RBC) [Entitic vol]77 pNBma06-998FgnRtomeuSouthern Ohio Medical CenterComment on above:Performed By: #### CBCA ####[facility] ([address], [id number] VIRMONOCYTES ABSOLUTE COUNT (10*3/UL) BY AUTOMATED COUNT0.4 10*3/uLNormal0.0-0.9[facility] CenterComment on above:Performed By: #### CBCA ####[facility] ([facility])[address] [place] [address] AVE.[place], [id number] VIRMONOCYTES RELATIVE PERCENT BY AUTOMATED COUNT7.7 %Normal [facility] CenterComment on above:Performed By: #### CBCA ####[facility] ([address], [place] VIR NEUTROPHILS ABSOLUTE COUNT BY AUTOMATED COUNT2.6 10*3/uLNormal1.5-6.6[facility] CenterComment on above:Performed By: #### CBCA ####[facility] ([address], [id number] VIRNEUTROPHILS RELATIVE PERCENT BY AUTOMATED COUNT51.4 %NormalProWoman'S Hospital Of TexasComment on above:Performed By: #### CBCA ####[facility] ([address], [id number] VIRPlatelet mean volume (Bld) [Entitic vol]8.4 fLNormal7-12PGalion HospitalComment on above:Performed By: #### CBCA ####[facility] ([address], [id number] VIRPlatelets (Bld) [#/Vol]246 10*3/wJAsjrcs038-460LklJunfbz [facility] HospitalComment on above:Performed By: #### CBCA ####[facility] ([address], [place] VIRRBC COUNT4.29 X10E12/LNormal3.8-5.2PGalion HospitalComment on above:Performed By: #### CBCA ####[facility] ([address], [place] VIRWBC (Bld) [#/Vol]5.0 10*3/uLNormal4-11[facility] CenterComment on above:Performed By: #### CBCA ####[facility] ([facility])[address], [id number] VIRCT ABDOMEN AND PELVIS WO CONTon 44-84-3751VF ABDOMEN AND PELVIS WO CONTCT ABDOMEN AND [...] by Tavo Fregoso MD on 05/07/2025 4:39 AMNormalProWoman'S Hospital Of TexasCT BRAIN WO CONTon 24-11-2966PG BRAIN WO CONTCT BRAIN WO CONT Exam: [...] by Tavo Fregoso MD on 05/07/2025 4:36 AMNormalSouthern [facility] Medical CenterDRUG SCREEN, URINEon 56-63-6808OXJVQDKNCAM/METHAMPNegativeNormalNegative [facility] Foundation HospitalComment on above:Order Comment: Confirmation available upon request.Result Comment: AMPH/METH screening cut off = 1000 ng/mLPerformed By: #### CBCA, CMP #### [facility] ([id number]) [address] [place] [address] 19927FSUUULEQGRKWOoswtygpRezeysDdqsjeojFgdXktnhy [facility] Comment on above:Order Comment: Confirmation available upon request.Result Comment: Barbiturates screening cut off value = 200 ng/mLPerformed By: #### CBCA, CMP #### [facility] ([id number]) [address] [place] [address] 22473KEEOGGCXRXZOFOAFmbotcslCfjjkkMfswbvkxTxrYakbuw [facility] Comment on above:Order Comment: Confirmation available upon request.Result Comment: Benzodiazepines screening cut off value = 200 ng/mLPerformed By: #### CBCA, CMP #### [facility] ([id number]) [address] [place] [address] 86113PWDLSIMALEZHHizpbjdhMrqdwzJiuuyeimFylLerxfk [facility] Comment on above:Order Comment: Confirmation available upon request.Result Comment: Cannabinoids/THC screening cut off value = 50 ng/mLPerformed By: #### CBCA, CMP #### [facility] ([id number]) [address] [place] [address] [id number] METABOLITENegativeNormalNegDayton Osteopathic HospitalComment on above:Order Comment: Confirmation available upon request. Result Comment: Cocaine screening cut off value = 300 ng/mLPerformed By: #### CBCA, CMP #### [facility] ([id number]) [address] [place] [address] [id number] [facility]Comment [facility] above:Order Comment: Confirmation available upon request.Result Comment: Ecstasy screening cut off value = 500 ng/mLPerformed By: #### CBCA, CMP #### [facility] ([id number]) [address] [place] [address] [id number]hPaaqsd [facility] Comment on above:Order Comment: Confirmation available upon request.Result Comment: Methadone screening cut off value = 300 ng/mL.Performed By: #### CBCA, CMP #### [facility] ([id number]) [address] [place] [address] 45509EPPRUJFLskdcclnGdhjhzzlFogbikekPtbLuebis [facility] Comment on above:Order Comment: Confirmation available upon request.Result Comment: Opiates screening cut off value = 300 ng/mL This test is used for the detection of codeine, hydrocodone (>1000 ng/mL), morphine and hydromorphone (>900 ng/mL) in urine.Performed By: #### CBCA, CMP #### [facility] ([id number]) [address] [place] [address] 37949RMBZBNHIHVdkcmauqOqmlijYhdxxkilNduFhfhig [facility] Comment on above:Order Comment: Confirmation available upon request.Result Comment: Oxycodone screening cut off value = 300 ng/mL This test is used for the detection of oxycodone and oxymorphone in urine.Performed By: #### CBCA, CMP #### [facility] ([id number]) [address] [place] [address] 65921KBQEONUAHRSEGHhqjdiquDogwquCoobkyvbAquLgpjtg [facility] Comment on above:Order Comment: Confirmation available upon request.Result Comment: Phencyclidine screening cut off value = 25 ng/mLPerformed By: #### CBCA, CMP #### [facility] ([id number]) [address] [place] [address] 63079FTNXQAQbi 75-12-4287Koisgbr [Mass/Vol]mg/dLNormal<=0.080 [facility] CenterComment on above:Result Comment: This report is intended for use in clinical monitoring or management of patients.Performed By: #### ALCO ####[facility] ([facility])[address] [place], [place] [id number] VIRLACTATE W/ REFLEXon 54-48-6596EOSDGKV W/REFLEX0.8 mmol/LNormal0.4-2.0[facility] CenterComment on above:Order Comment: Result did not trigger repeat Lactate,re-order if needed.Performed By: #### LACTS ####[facility] ([facility])[address] [place] [address] VIRPOCT NURSING URINE MACROSCOPIC UAon 06-73-1882MMDXROJXH NURNegativeNormalNegDayton Osteopathic HospitalComment on above:Performed By: #### CBCA, CMP #### [facility] ([id number]) [address] [place] [address] 42742WVQGR/HGB NURModerateAbnoerlanger western carolina hospitalNegDayton Osteopathic Hospital Comment on above:Performed By: #### CBCA, CMP #### [facility] ([id number]) [address] [place] [address] [place] [address]HJGHQSP NURNegativeNormalNegativeSouthern [facility] Center Comment on above:Performed By: #### CBCA, CMP #### [facility] ([id number]) [address] [place] [address] 58211WXIGMQB NURNegativeNormalNegDayton Osteopathic Hospital Comment on above:Performed By: #### CBCA, CMP #### [facility] ([id number]) [address] [place] [address] 03407VFCDWTOGX ESTERASE NURNegativeNormalNegativeSouthern [facility] Medical CenterComment on above:Performed By: #### CBCA, CMP #### [facility] ([id number]) [address] [place] [address] 90570IVHFGRM NURNegativeNormalNegativeSouthern [facility] Center Comment on above:Performed By: #### CBCA, CMP #### [facility] ([id number]) [address] [place] [address] [place] [address]CC NUR6.9Xopjmr6.0, 6.0, 6.5, 7.0, 7.5, 8.0, 8.5, 5.5ProMedica Kaiser Foundation HospitalComment on above:Performed By: #### CBCA, CMP #### [facility] ([id number]) [address] [place] [address] 22061NWCCRXK NURNegativeNormalNegativeSouthern [facility] Comment on above:Performed By: #### CBCA, CMP #### [facility] ([id number]) [address] [place] [address] [place] 69176QXMUGTGT GRAVITY NUR1.764Ozwaqg4.010, 1.015, 1.020, 1.025 Pro[facility] Kaiser Foundation HospitalComment on above:Performed By: #### CBCA, CMP #### [facility] ([id number]) [address] [place] [address] 58559KIKVOHBKTSOL NUR1.0 E.U./dLNormalSouthern [facility] Medical Center Comment on above:Performed By: #### CBCA, CMP #### [facility] ([id number]) [address] [place] [address] 93839IZIN , URINE (NUCG)on 31-96-5371Adum HCG ( test) Ql (U)NegativeNormalNegative, IndeterminateSouthern [facility] Medical Center Comment on above:Performed By: #### CBCA, CMP #### [facility] ([id number]) [address] [place] [address], [place] [address]ZGVDYIJL I, HIGH SENSITIVITY 0 HOURon 67-38-1336XNQTHHBS I, HIGH SENSITIVITY<^2Normal<16[facility] CenterComment on above:Performed By: #### TNIHS0 ####[facility] ([facility])[address] [place] [address] VIRURINALYSISon 01-95-0851Jgprtcpbj Ql (U)NegativeNormal NegativeSouthern Ohio Medical CenterComment on above:Order Comment: Urine received without preservative. Delays in transport may affect results. Interpret with caution. A clinical correlation is recommended.Performed By: #### CBCA, CMP #### [facility] ([id number]) [address] [place] [address] 61640BDIBE/HGBModerateAbnormalNegativeSouthern [facility] Comment on above:Order Comment: Urine received without preservative. Delays in transport may affect results. Interpret with caution. A clinical correlation is recommended.Performed By: #### CBCA, CMP #### [facility] ([id number]) [address] [place] [address] 44409CO OXALATE CRYSTALSPresentAbnormalNoneProMedica Kaiser Foundation HospitalComcorewell health butterworth hospital on above:Order Comment: Urine received without preservative. Delays in transport may affect results. Interpret with caution. A clinical correlation is recommended.Performed By: #### CBCA, CMP #### [facility] ([id number]) [address] [place] [address] 10632Bfqzd (U)YellowNormalYellow, ColorlessSouthern Ohio Medical CenterComment on above:Order Comment: Urine received without preservative. Delays in transport may affect results. Interpret with caution. A clinical correlation is recommended.Performed By: #### CBCA, CMP #### [facility] ([id number]) [address] [place] [address], [place] [address]Vybjqvy Ql (U)NegativeNormalNegative, 250 mg/dLProWoman'S Hospital Of TexasComment on above:Order Comment: Urine received without preservative. Delays in transport may affect results. Interpret with caution. A clinical correlation is recommended.Performed By: #### CBCA, CMP #### [facility] ([id number]) [address] [place] [address] 57448Aswdqlx Ql (U)NegativeNormalNegativeSouthern [facility] Comment on above:Order Comment: Urine received without preservative. Delays in transport may affect results. Interpret with caution. A clinical correlation is recommended.Performed By: #### CBCA, CMP #### [facility] ([id number]) [address] [place] [address] 91970Xufhhkpuq esterase Test strip Ql (U)NegativeNormalNegative ProMedicLos Angeles Community HospitalComment on above:Order Comment: Urine received without preservative. Delays in transport may affect results. Interpret with caution. A clinical correlation is recommended.Performed By: #### CBCA, CMP #### [facility] ([id number]) [address] [place] [address] 87049Eppjzod Ql (U)NegativeNormalNegativeSouthern [facility] Center Comment on above:Order Comment: Urine received without preservative. Delays in transport may affect results. Interpret with caution. A clinical correlation is recommended.Performed By: #### CBCA, CMP #### [facility] ([id number]) [address] [place] [address] 72595AX,URINE6.3Dakqlt9.0-8.5ProMedica Kaiser Foundation HospitalComment on above:Order Comment: Urine received without preservative. Delays in transport may affect results. Interpret with caution. A clinical correlation is recommended.Performed By: #### CBCA, CMP #### [facility] ([id number]) [address] [place] [address] 54683Effkwqy Ql (U)NegativeNormalNegativeSouthern [facility] Center Comment on above:Order Comment: Urine received without preservative. Delays in transport may affect results. Interpret with caution. A clinical correlation is recommended.Performed By: #### CBCA, CMP #### [facility] ([id number]) [address] [place] [address] 36380G.B.NFZRR86Eeil1-4ZpdPvateeGalion HospitalComcorewell health butterworth hospital on above: Order Comment: Urine received without preservative. Delays in transport may affect results. Interpret with caution. A clinical correlation is recommended. Performed By: #### CBCA, CMP #### [facility] ([id number]) [address] [place] [address] 89574Jqzwwjwq gravity (U) [Rel density]1.978Jpgmqu7.003-1.035 [facility] on above:Order Comment: Urine received without preservative. Delays in transport may affect results. Interpret with caution. A clinical correlation is recommended.Performed By: #### CBCA, CMP #### [facility] ([id number]) [address] [place] [address] 52470WBVYESEW KEGZPUWAYY9Ctdtrz9-6MeuOwtdox [facility] HospitalComcorewell health butterworth hospital on above:Order Comment: Urine received without preservative. Delays in transport may affect results. Interpret with caution. A clinical correlation is recommended.Performed By: #### CBCA, CMP #### [facility] ([id number]) [address] [place] [address] 65139OFRXELAMCVwkrhQurhlhSsylpAyeHbedjb [facility] HospitalComcorewell health butterworth hospital on above:Order Comment: Urine received without preservative. Delays in transport may affect results. Interpret with caution. A clinical correlation is recommended.Performed By: #### CBCA, CMP #### [facility] ([id number]) [address] [place] [address] 83732YYMAGNMALJKB0.0 eu/dLNormal0.2 eu/dL, 1.0 eu/dLSouthern Ohio Medical CenterComcorewell health butterworth hospital on above:Order Comment: Urine received without preservative. Delays in transport may affect results. Interpret with caution. A clinical correlation is recommended.Performed By: #### CBCA, CMP #### [facility] ([id number]) [address] [place] [address] 14413D.B.GIBTM4Euopot9-6ArhCubwsp Kaiser Foundation HospitalComment on above: Order Comment: Urine received without preservative. Delays in transport may affect results. Interpret with caution. A clinical correlation is recommended. Performed By: #### CBCA, CMP #### [facility] ([id number]) [address] [place] [address] 08349Sbdgz Cultureon 47-29-4487Crwojoqg identified Cx Nom (U)50,000 colonies/ml mixed bacterial skin contaminants 2 Days PERFORMED BY: [place] [address] PATHOLOGIST NPS DEBBIE BAEZA M.D.[facility] Physician GroupComment on above: Performed By: #### CUU #### [facility] [address] [place] [address] USAFollow-Upon 83-47-4290Grwabs-[id number] Elvi Moore 1980 F Date Provider Department Center 04/24/2025 14307-BDNHYMIGDALIA STEVEN MP PAIN Medical Pavi Family History Problem Relation Age of Onset Brain cancer Mother Breast cancer Sister Kidney cancer Maternal Grandmother Prostate cancer Paternal Grandfather Cancer Father Cancer Sister Family Status - Relation Status Age at Mother Sister Maternal Grandmother Paternal Grandfather Father Sister Level of Service:17719 CT OFFICE/OUTPATIENT ESTABLISHED MOD MDM 30 MIN Reason for Visit and Comments: Med Management [[id number]] - Refill [place] and Lyrica Pill count No bottle Follow-up [650355] - SCSNormalUniversity of Wilbarger General HospitalRefspartanburg medical center [id number] Elvi Moore 1980 F Date Provider Department Center 03/29/2025 44874-KOEOFMIGDALIA MOE MP PAIN Medical Pavi Family History Problem Relation Age of Onset Brain cancer Mother Breast cancer Sister Kidney cancer Maternal Grandmother Prostate cancer Paternal Grandfather Cancer Father Cancer Sister Family Status - Relation Status Age at Mother Sister Maternal Grandmother Paternal Grandfather Father Sister Reason for Visit and Comments: Med Refill [[id number]][facility] [id number] Elvi Moore 1980 F Date Provider Department Center 03/29/2025 170-RUKHSANA MILLER PAIN Medical Pavi Family History Problem Relation Age of Onset Brain cancer Mother Breast cancer Sister Kidney cancer Maternal Grandmother Prostate cancer Paternal Grandfather Cancer Father Cancer Sister Family Status - Relation Status Age at Mother Sister Maternal Grandmother Paternal Grandfather Father Sister Reason for Visit and Comments: Med Refill [[id number]][facility] Health SystemIGP,APTIMA HPV,AGE GDLNon 96-02-9857PWQ GDLN ACOG TESTINGNote.NOMS HealthcareComment on above:TESTS RESULT FLAG UNITS REF RANGE LAB Clinician Provided Cytology Information Source.............Cervix No. of containers..01 ThinPrep Vial Age Algo ACOG Yue... 30-65 01 FLAG LEGEND: L-Low Normal,H-High Normal,LL-Alert Low,HH-Alert High <-Panic Low,>-Panic High,A-Abnormal,AA-Critical Abnormal Performed at: 01 =G Laura Saucedo [address] [place] [address] [place] [address] Rosy Madrigal MD, HPV APTIMANegativeNegativeNOMS HealthcareComment on above:This nucleic acid amplification test detects fourteen high- risk HPV types (16,18,31,33,35,39,45,51,52,56,58,59,66,68) without differentiation. Performed at: = - [address] [id number] Lead Enterprise Architect: Rosy Madrigal MD, Phone: [phone] Performed at: - [facility] [id number] Lead Enterprise Architect: Rosy Madrigal MD, Phone: [phone] IGP, APTIMA HPV, RFX 16/18,45Note.NOMS HealthcareComment on above:TESTS RESULT FLAG UNITS REF RANGE LAB DIAGNOSIS: 02 NEGATIVE FOR INTRAEPITHELIAL LESION OR MALIGNANCY. Specimen adequacy: 02 Satisfactory for evaluation. No endocervical component is identified. Performed by: 02 Elizabeth Garza, Exercise Instructor (ASCP) . 02 Note: Note 02 The [...] <-Panic Low,>-Panic High,A-Abnormal,AA-Critical Abnormal Performed at: 02 WB [facility] [address] [place] [address] Rosy Madrigal MD, BRUSH-SPATULA CERVIX CLINISYNCNOMS HealthcareRefspartanburg medical center [id number] Elvi Moore 1980 F Date Provider Department Center 02/26/2025 170RUKHSANA YADAV MP PAIN Medical Pavi Family History Problem Relation Age of Onset Brain cancer Mother Breast cancer Sister Kidney cancer Maternal Grandmother Prostate cancer Paternal Grandfather Cancer Father Cancer Sister Family Status - Relation Status Age at Mother Sister Maternal Grandmother Paternal Grandfather Father Sister Reason for Visit and Comments: Med Refill [[id number]]NormalUnOhioHealth Shelby HospitalFollow-Upon 29-02-7588Avseoz-[id number] Elvi Moore 1980 F Date Provider Department Center 01/26/2025 RUKHSANA ESPINOZA MP PAIN Medical Pavi Family History Problem Relation Age of Onset Brain cancer Mother Breast cancer Sister Kidney cancer Maternal Grandmother Prostate cancer Paternal Grandfather Cancer Father Cancer Sister Family Status - Relation Status Age at Mother Sister Maternal Grandmother Paternal Grandfather Father Sister Level of Service:25754 CT OFFICE/OUTPATIENT ESTABLISHED MOD MDM 30 MIN Reason for Visit and Comments: Follow-up [742216] - Failed GTB Med Refill [626999] - Lyrica Med Management [[id number]] - Refill [place] Pill Count No bottleNormalTrumbull Memorial HospitalC DIFFICILE BY PCR on 01-11-2025. difficile toxin genes MAMIE+probe Ql (Stl)TOXIGENIC C DIFF Negative (qualifier value) 027 NAP1 Negative (qualifier value)NormalPRNEGProMedica Kaiser Foundation HospitalComment on above: Performed By: #### 88309-1 ####[facility] ([id number])[address] [place] [address], [address] [place] [address]#### 21558-6 ####[facility] ([id number])[address] [place] [address] 28545JRKEZWCENTERVILLE CAMPUS LAB ([id number])[address] [place] [address], [address]TOBAR[facility], [place] [address]AZE AND AUTO DIFFon 19-67-7223NSXJMJFO BASOPHIL0.0 X10E9/LNormal0.0-0.2ProMedica Kaiser Foundation HospitalComment on above:Performed By: #### CBCA, PINR, 20376-4, CMP, 3040-3 #### [facility] ([id number]) [address] [place] [address] 78987DVFJHYXL NEUTROPHIL5.0 X10E9/LNormal1.5-6.6ProWoman'S Hospital Of TexasComment on above:Performed By: #### CBCA, PINR, 02644-1, CMP, 3040-3 #### [facility] ([id number]) [address] [place] [address] 24700Dkshluasr/100 WBC (Bld)0.2 %[facility] Comment on above:Performed By: #### CBCA, PINR, 97816-2, CMP, 3040-3 #### [facility] ([id number]) [address] [place] [address] 18600Htlrttdicgs (Bld) [#/Vol]0.0 10*3/uLNormal0.0-0.4[facility] CenterComment on above:Performed By: #### CBCA, PINR, 68327-8, CMP, 3040-3 #### [facility] ([id number]) [address] [place] [address] 63888Xaatjotpuzn/100 WBC (Bld)0.4 %[facility] Comment on above:Performed By: #### CBCA, PINR, 30347-0, CMP, 3040-3 #### [facility] ([id number]) [address] [place] [address] 12839Yhsnljvrcgc distribution width (RBC) [Ratio]18.6 %High11.5-15.0 ProMHollywood Community Hospital of HollywoodComment on above:Performed By: #### CBCA, PINR, 51906- 9, CMP, 3040-3 #### [facility] ([id number]) [address] [place] [address] 14827Qoyxrfoimd (Bld) [Volume fraction]36.9 %Djqfbc88-17DhcSwypkgWoman'S Hospital Of TexasComment on above:Performed By: #### CBCChristine, PINR, 79604-4, CMP, 3040-3 #### [facility] ([id number]) [address] [place] [address] 57258Dwfuyafsgx (Bld) [Mass/Vol]11.8 g/xDImjpaj44.7-15.5PGalion HospitalComment on above:Performed By: #### CBCA, PINR, 43492-1, CMP, 3040-3 #### [facility] ([id number]) [address] [place] [address] 84370Lkvowaneqpz (Bld) [#/Vol]1.8 10*3/uLNormal1.0-3.5PGalion HospitalComment on above:Performed By: #### CBCA, PINR, 67141-8, CMP, 3040-3 #### [facility] ([id number]) [address] [place] [address] 97885Fxoyotbekwx/100 WBC (Bld)22.5 %NormalSouthern [facility] Medical Center Comment on above:Performed By: #### CBCA, PINR, 84152-6, CMP, 3040-3 #### [facility] ([id number]) [address] [place] [address] 08826TJA (RBC) [Entitic mass]25.2 rtNzu88-85EfcDccjsqSouthern Ohio Medical CenterComment on above:Performed By: #### CBCA, PINR, 61020-0, CMP, 3040-3 #### [facility] ([id number]) [address] [place] [address] 10743BYGX (RBC) [Mass/Vol]32.1 g/bKNlbbcr44-32FyzNdjvxxWoman'S Hospital Of TexasComment on above:Performed By: #### CBCA, PINR, 45057-0, CMP, 3040-3 #### [facility] ([id number]) [address] [place] [address] 66378OGD (RBC) [Entitic vol]78 wFSqa30-612GcqVgwswkSouthern [facility] Medical Center Comment on above:Performed By: #### CBCA, PINR, 95609-7, CMP, 3040-3 #### [facility] ([id number]) [address] [place] [address] 23480Lssympvdw (Bld) [#/Vol]1.0 10*3/uLHigh0-0.9[facility] Medical CenterComment on above:Performed By: #### CBCA, PINR, 66147-1, CMP, 3040-3 #### [facility] ([id number]) [address] [place] [address] 83723Bieunsaoe/100 WBC (Bld)13.1 %[facility] Comment on above:Performed By: #### CBCA, PINR, 77417-8, CMP, 3040-3 #### [facility] ([id number]) [address] [place] [address] 09768Fquluhoojrj/100 WBC (Bld)63.8 %[facility] Comment on above:Performed By: #### CBCA, PINR, 33367-5, CMP, 3040-3 #### [facility] ([id number]) [address] [place] [address], [place] [address]Xjzadbpy mean volume (Bld) [Entitic vol]7.9 fLNormal7-12 [facility] CenterComment on above:Performed By: #### CBCChristine, PINR, 60943- 9, CMP, 3040-3 #### [facility] ([id number]) [address] [place] [address] 28737Dpsxpfqaw (Bld) [#/Vol]289 10*3/rAHtgrob347-575UacIsxaga [facility] HospitalComment on above:Performed By: #### CBCChristine, PINR, 42426-2, CMP, 3040-3 #### [facility] ([id number]) [address] [place] [address] 13083BSZ COUNT4.70 X10E12/LNormal3.80-5.20[facility] Comment on above:Performed By: #### CAMILLE, PINR, 04382-8, CMP, 3040-3 #### [facility] ([id number]) [address] [place] [address] 22959SSF (Bld) [#/Vol]7.8 10*3/uLNormal4.0-11.0[facility] CenterComment on above:Performed By: #### CBCChristine, PINR, 07969-2, CMP, 3040-3 #### [facility] ([id number]) [address] [place] [address] 35368UQTBNFAISPEKO METABOLIC PANELon 27-97-7575Osfmuwf [Mass/Vol]3.8 g/dLNormal3.2-5.3PGalion HospitalComment on above:Performed By: #### CBCA, PINR, 43878-2, CMP, 3040-3 #### [facility] ([id number]) [address] [place] [address] 88220VFE [Catalytic activity/Vol]95 U/RXzxnzf52-492DrcAhyxjeWoman'S Hospital Of TexasComment on above:Performed By: #### CBCChristine, PINR, 80062-6, CMP, 3040-3 #### [facility] ([id number]) [address] [place] [address], [place] [address]AEL [Catalytic activity/Vol]21 U/LNormal0-31ProMedKentfield HospitalComment on above:Performed By: #### CBCChristine, PINR, 52080-5, CMP, 3040-3 #### [facility] ([id number]) [address] [place] [address], [place] [address]Bcwle gap [Moles/Vol]7 mmol/LNormal5-15ProWoman'S Hospital Of TexasComment on above:Performed By: #### CBCChristine, PINR, 04070-6, CMP, 3040-3 #### [facility] ([id number]) [address] [place] [address] [place] [address]MXJ [Catalytic activity/Vol]35 U/LNormal0-41ProWoman'S Hospital Of TexasComment on above:Performed By: #### [place], PINR, 08697-1, CMP, 3040-3 #### [facility] ([id number]) [address] [place] [address], [place] [address]Gqonvefqx [Mass/Vol]0.7 mg/dLNormal0.3-1.2PGalion HospitalComment on above:Performed By: #### CBCChristine, PINR, 25705-7, CMP, 3040-3 #### [facility] ([id number]) [address] [place] [address], [place] [address]Sbtiaty [Mass/Vol]8.4 mg/dLLow8.5-10.5PGalion HospitalComment on above:Performed By: #### CBCA, PINR, 98349-1, CMP, 3040-3 #### [facility] ([id number]) [address] [place] [address], [place] [address]Fspyjiob [Moles/Vol]101 mmol/SUkaxlb99-862FspAvattaSouthern Ohio Medical CenterComment on above:Performed By: #### MINNA OBRIEN, 62135-6, CMP, 3040-3 #### [facility] ([id number]) [address] [place] [address] 68776QE9 [Moles/Vol]26 mmol/QBibevh37-46YjiPgxocwGalion Hospital Comment on above:Performed By: #### CAMILLE, MINNA, 01783-4, CMP, 3040-3 #### [facility] ([id number]) [address] [place] [address] 01126Khymckozuh [Mass/Vol]2.63 mg/dLHigh0.40-1.00[facility] Medical CenterComment on above:Result Comment: METHOD TRACEABLE TO IDMS STANDARD Performed By: #### MINNA OBRIEN, 81432-6, TANJA, 0-3 #### [facility] ([id number]) [address] [place] [address] 51063BRZ/1.73 sq M.predicted among non-blacks MDRD (S/P/Bld) [Vol rate/Area]22 mL/min/{1.73_m2}Low>59ProWoman'S Hospital Of TexasComment on above: Result Comment: Reported eGFR is based on the CKD-EPI 2020 equation that does not use a race coefficient.Performed By: #### CAMILLE, JENNIFERR, 82360-5, CMP, 3040-3 #### [facility] ([id number]) [address] [place] [address] 40974Qcbfycl [Mass/Vol]102 mg/yQLcnh84-34BztOcsdtoSouthern [facility] Medical Center Comment on above:Performed By: #### [place]IL[place], PINR, 12598-9, CMP, 3040-3 #### [facility] ([id number]) [address] [place] [address] 85304Iexhodczs [Moles/Vol]4.7 mmol/LNormal3.5-5.0ProWoman'S Hospital Of TexasComment on above:Performed By: #### CBCChristine, PINR, 88738-3, CMP, 3040-3 #### [facility] ([id number]) [address] [place] [address] 68682Qujzfpq [Mass/Vol]7.0 g/dLNormal6.0-8.0ProWoman'S Hospital Of TexasComment on above:Performed By: #### CBCA, PINR, 02839-2, CMP, 3040-3 #### [facility] ([id number]) [address] [place] [address] 42587Uvwlse [Moles/Vol]134 mmol/WJvsrca992-704VjiCytbpt [facility]remont HospitalComment on above:Performed By: #### CBCChristine, PINR, 86258-6, CMP, 3040-3 #### [facility] ([id number]) [address] [place] [address] 93511Kqov nitrogen [Mass/Vol]36 mg/dLHigh5-23ProWoman'S Hospital Of TexasComment on above:Performed By: #### CBCChristine, PINR, 21269-0, CMP, 3040-3 #### [facility] ([id number]) [address] [place] [address] 11201AU ABDOMEN AND PELVIS WO CONTon 44-80-8234AD ABDOMEN AND PELVIS WO CONTCT ABDOMEN AND [...] by Yvette Andrade MD on 01/11/2025 12:44 [facility] GI PANELon 77-52-6501Bvcenjcqnjwwwlwc pathogens DNA and RNA panel MAMEI+non-probe (Stl)SPECIMEN SOURCE STOOL CAMPYLOBACTER Not detected (qualifier [...] detected (qualifier value) SAPOVIRUS Not detected (qualifier value)NormalSelect Medical Specialty Hospital - CincinnatiComment on above:Performed By: #### 34174-6 ####[facility] ([id number])[address] [place] [address], [address] [place] [address]#### 36380-4 ####[facility] ([id number])[address] [place] [address] 43734ZBTYLJGEORGETOWN BEHAVIORAL HOSPITAL LAB ([id number])[address] [place] [address], [address] [place] [address] 18129AONBDWuq 24-72-8668Salxaf [Catalytic activity/Vol]29 U/XRcoyvf24-44 ProMedicLos Angeles Community HospitalComment on above:Performed By: #### [place], PINR, 57156- 9, CMP, 3040-3 #### [facility] ([id number]) [address] [place] [address], [place] 11696AFBPBFM AND INRon 52-62-0368KXA Coag (PPP) [Relative time]0.9 {INR}Normal0.9-1.2PGalion HospitalComment on above:Performed By: #### [place], PINR, 90948-9, CMP, 3040-3 #### [facility] ([id number]) [address] [place] [address] 87324MO Coag (PPP) [Time]10.9 sNormal9.8-13.2PGalion HospitalComment on above:Result Comment: NEW REFERENCE RANGEPerformed By: #### [place], PINR, 97782-7, CMP, 3040-3 #### [facility] ([id number]) [address] [place] [address] 61487OGJ MACROSCOPIC NURon 98-31-1428UFUSQNHUM NURMODERATEAbnormal NEGSouthern Ohio Medical CenterComment on above:Performed By: #### NUM ####[facility] ([id number])[address] [place] [address], [place] [address]JDNJP/HGB NURNegativeNormalNEGProWoman'S Hospital Of TexasComment on above: Performed By: #### NUM ####[facility] ([id number])[address] [place] [address] [place] [address]KBRQCCP NURNegativeNormalNEGProWoman'S Hospital Of TexasComment on above:Performed By: #### NUM ####[facility] ([id number])[address], [place], [place] [address]VMUIPSV NURTraceAbnormalNEGProMedica Kaiser Foundation HospitalComment on above:Performed By: #### NUM ####[facility] ([id number])[address] [place] [address], [place] [address]DYTWTVOFM ESTERASE NURNegativeNormalNEGProWoman'S Hospital Of TexasComment on above:Performed By: #### NUM ####[facility] ([id number])[address] [place] [address], [place] [address]NBAGBWT JUNIOR NegativeNormalNEGProParkview Health Bryan Hospitalca Kaiser Foundation HospitalComment on above:Performed By: #### NUM ####[facility] ([id number])[address] [place] [address], [place] [address]DC NUR5.7Qhxprl9.0-8.5ProMedKentfield HospitalComment on above:Performed By: #### NUM ####[facility] ([id number])[address] [place] [address], [place] [address]SYVDNXW EYE785 mg/dLAbnormalNEG ProMregional rehabilitation hospitala Kaiser Foundation HospitalComment on above:Performed By: #### NUM ####[facility] ([id number])[address] [place] [address], [place] [address]JYUSTLZJ GRAVITY NUR1.810Clszbq1.003-1.035ProWoman'S Hospital Of TexasComment on above:Performed By: #### NUM ####[facility] ([id number])[address] [place] [address], [place] [address]YJMUCUEQWYMT NUR0.2 eu/dLNormal <1.1ProMedKentfield HospitalComment on above:Performed By: #### NUM ####[facility] ([id number])[address] [place] [address] [place] [address]tUKH Coag (PPP) [Time]on 67-81-5002jSQO Coag (Bld) [Time]32 s Avrtaj74-32NzmKothntWoman'S Hospital Of TexasComment on above:Result Comment: NEW REFERENCE RANGEPerformed By: #### CBCA, PINR, 55867-9, CMP, 3040-3 #### [facility] ([id number]) [address] [place] [address], FIRST FLOOR [place], [place] [address]95fz 66-67-588982Beqs to [facility] Medical CenterOrders Onlyon 61-93-9247Ytkfrv [id number] Owen Moorea 1980 F Date Provider Department Center 01/02/2025 13984-DNJEPMIGDALIA STEVEN MP PAIN Medical Pavi Family History Problem Relation Age of Onset Brain cancer Mother Breast cancer Sister Kidney cancer Maternal Grandmother Prostate cancer Paternal Grandfather Cancer Father Cancer Sister Family Status - Relation Status Age at Mother Sister Maternal Grandmother Paternal Grandfather Father SisterNormalUniThe Christ HospitalRefillon [id number] Owen Moorea 1980 Date Provider Department Center 01/01/2025 RUKHSANA ESPINOZA MP PAIN Medical Pavi Family History Problem Relation Age of Onset Brain cancer Mother Breast cancer Sister Kidney cancer Maternal Grandmother Prostate cancer Paternal Grandfather Cancer Father Cancer Sister Family Status - Relation Status Age at Mother Sister Maternal Grandmother Paternal Grandfather Father Sister Reason for Visit and Comments: Med Refill [155305][facility] SystemFollow-Upon 75-18-4944Lrujfj-[id number] Modesto Mooreatha 1980 Date Provider Department Center 12/25/2024 Rodo-MONIQUE BURKETT MP ORTHO MPORTHO Family History Problem Relation Age of Onset Brain cancer Mother Breast cancer Sister Kidney cancer Maternal Grandmother Prostate cancer Paternal Grandfather Cancer Father Cancer Sister Family Status - Relation Status Age at Mother Sister Maternal Grandmother Paternal Grandfather Father Sister Level of Service:18301 CT OFFICE/OUTPATIENT ESTABLISHED MOD MDM 30 MIN () Reason for Visit and Comments: Edema [[id number]] - Hx l knee revision & TKA - States she took a fall when her knee gave out last week and when she fell she heard the loudest pop and her pain has been severe since Follow-up [711685] - Hx l knee revision & TKA [...] pop and her pain has been severe sinceNormalUniversCincinnati Children's Hospital Medical Center36on 90-76-709544Appu to [facility] Medical CenterCBC AND AUTO DIFF on 43-11-8197PERCJRNY BASOPHIL0.0 X10E9/LNormal0.0-0.2PGalion Hospital Comment on above:Performed By: #### CBCA, CMP #### [facility] ([id number]) [address] [place] [address] 29832DNJRDSMK NEUTROPHIL2.6 X10E9/LNormal1.5-6.6Southern [facility] Medical CenterComment on above:Performed By: #### CBCA, CMP #### [facility] ([id number]) [address] [place] [address] 67733Wgsiclqjo/100 WBC (Bld)0.3 %[facility] Comment on above:Performed By: #### CBCA, CMP #### [facility] ([id number]) [address] [place] [address] 02542Mzymfytozxf (Bld) [#/Vol]0.1 10*3/uLNormal0.0-0.4Southern [facility] Medical CenterComment on above:Performed By: #### CBCA, CMP #### [facility] ([id number]) [address] [place] [address] 95318Umyghodtiax/100 WBC (Bld)1.6 %[facility] Comment on above:Performed By: #### CBCA, CMP #### [facility] ([id number]) [address] [place] [address] 33661Qeesrmiziwu distribution width (RBC) [Ratio]16.0 %High11.5-15.0 ProMedica Kaiser Foundation HospitalComment on above:Performed By: #### CBCA, CMP #### [facility] ([id number]) [address] [place] [address] 87933Gptuxdtyal (Bld) [Volume fraction]33.8 %Igp81-62HldCjuydkWoman'S Hospital Of TexasComment on above:Performed By: #### CBCA, CMP #### [facility] ([id number]) [address] [place] [address] 16591Zfwaopecgq (Bld) [Mass/Vol]10.9 g/dLLow11.7-15.5PGalion HospitalComment on above:Performed By: #### CBCA, CMP #### [facility] ([id number]) [address] [place] [address] 83843Amttxhezqrq (Bld) [#/Vol]2.0 10*3/uLNormal1.0-3.5PGalion HospitalComment on above:Performed By: #### CBCA, CMP #### [facility] ([id number]) [address] [place] [address] 80132Howjxwrmxyx/100 WBC (Bld)39.6 %NormalSouthern Ohio Medical Center Comment on above:Performed By: #### CBCA, CMP #### [facility] ([id number]) [address] [place] [address] 32972VPH (RBC) [Entitic mass]24.8 bqHzc15-38UxeYtkmthSouthern Ohio Medical CenterComment on above:Performed By: #### CBCA, CMP #### [facility] ([id number]) [address] [place] [address] 87609WRSG (RBC) [Mass/Vol]32.3 g/hYEhsrfy88-27TujAxdngmWoman'S Hospital Of TexasComment on above:Performed By: #### CBCA, CMP #### [facility] ([id number]) [address] [place] [address] 56002SSD (RBC) [Entitic vol]77 fYDwu46-107HqhLgojctSouthern Ohio Medical Center Comment on above:Performed By: #### CBCA, CMP #### [facility] ([id number]) [address] [place] [address] 56145Hgyaarbdn (Bld) [#/Vol]0.4 10*3/uLNormal0-0.9Southern [facility] Medical CenterComment on above:Performed By: #### CBCA, CMP #### [facility] ([id number]) [address] [place] [address] 86427Xubcqsyto/100 WBC (Bld)6.9 %[facility] Comment on above:Performed By: #### CBCA, CMP #### [facility] ([id number]) [address] [place] [address] 04077Mviylvzrwey/100 WBC (Bld)51.6 %[facility] Comment on above:Performed By: #### CBCA, CMP #### [facility] ([id number]) [address] [place] [address] 74314Mqwuxooa mean volume (Bld) [Entitic vol]8.0 fLNormal7-12 [facility] Medical CenterComment on above:Performed By: #### CBCA, CMP #### [facility] ([id number]) [address] [place] [address] 61110Zjabbuaxd (Bld) [#/Vol]275 10*3/xMEfgviy200-380OfsBftnchSouthern Ohio Medical CenterComment on above:Performed By: #### CBCA, CMP #### [facility] ([id number]) [address] [place] [address] 60485QJW COUNT4.40 X10E12/LNormal3.80-5.20[facility] Comment on above:Performed By: #### [place], CMP #### [facility] ([id number]) [address] [place] [address], [place] [address]JZQ (Bld) [#/Vol]5.1 10*3/uLNormal4.0-11.0ProWoman'S Hospital Of TexasComment on above:Performed By: #### CBCChristine, CMP #### [facility] ([id number]) [address] [place] [address], [place] [address]XCIONAAYDRBAM METABOLIC PANELon 94-84-8722Rriughi [Mass/Vol]4.2 g/dLNormal3.2-5.3PGalion HospitalComment on above:Performed By: #### [place], CMP #### [facility] ([id number]) [address] [place] [address], [place] 307[address]DPK [Catalytic activity/Vol]112 U/OUmztfx01-145AwuQtzyraWoman'S Hospital Of TexasComment on above:Performed By: #### [place], CMP #### [facility] ([id number]) [address] [place] [address], [place] 65[address]EJN [Catalytic activity/Vol]13 U/LNormal0-31PGalion HospitalComment on above:Performed By: #### CBCChristine, CMP #### [facility] ([id number]) [address] [place] [address], [place] [address]Rdays gap [Moles/Vol]10 mmol/LNormal5-15ProWoman'S Hospital Of TexasComment on above:Performed By: #### CBCChristine, CMP #### [facility] ([id number]) [address] [place] [address], [place] 74[address]LCS [Catalytic activity/Vol]18 U/LNormal0-41ProWoman'S Hospital Of TexasComment on above:Performed By: #### CBCChristine, CMP #### [facility] ([id number]) [address] [place] [address], [place] [address]Iodcdliph [Mass/Vol]0.5 mg/dLNormal0.3-1.2PGalion HospitalComment on above:Performed By: #### [place], CMP #### [facility] ([id number]) [address] [place] [address], [place] [address]Kjaqqsu [Mass/Vol]8.9 mg/dLNormal8.5-10.5PGalion HospitalComment on above:Performed By: #### [place], CMP #### [facility] ([id number]) [address] [place] [address], [place] [address]Murnqxvo [Moles/Vol]103 mmol/WFeziug58-389GpdPhuohdWoman'S Hospital Of TexasComment on above:Performed By: #### [place], CMP #### [facility] ([id number]) [address] [place] [address], [place] [address]DM9 [Moles/Vol]27 mmol/VBrpllu83-04PnrQtmqiiGalion Hospital Comment on above:Performed By: #### [place], CMP #### [facility] ([id number]) [address] [place] [address], [place] [address]Kaowwxtxxe [Mass/Vol]0.69 mg/dLNormal0.40-1.00ProWoman'S Hospital Of TexasComment on above:Result Comment: METHOD TRACEABLE TO IDMS STANDARD Performed By: #### [place], CMP #### [facility] ([id number]) [address] [place] [address], [place] 12[address]fRIH (CKD-EPI) NON-RACE DEPENDENT>90Normal>59ProWoman'S Hospital Of TexasComment on above:Result Comment: Reported eGFR is based on the CKD-EPI 2020 equation that does not use a race coefficient.Performed By: #### [place], CMP #### [facility] ([id number]) [address] [place] [address], [place] 25[address]Fkjestr [Mass/Vol]97 mg/zIJhnesw28-33BrwAfvacjSouthern Ohio Medical Center Comment on above:Performed By: #### [place], CMP #### [facility] ([id number]) [address] [place] [address], [place] 737[address]Duslidgqp [Moles/Vol]4.0 mmol/LNormal3.5-5.0ProWoman'S Hospital Of TexasComment on above:Performed By: #### [place], CMP #### [facility] ([id number]) [address] [place] [address], [place] [address]Pcmjrlq [Mass/Vol]7.3 g/dLNormal6.0-8.0ProWoman'S Hospital Of TexasComment on above:Performed By: #### [place], CMP #### [facility] ([id number]) [address] [place] [address], [place] [address]Kijcjz [Moles/Vol]140 mmol/BNqpbhp942-480CrjXgvmol [facility]ont HospitalComment on above:Performed By: #### [place], CMP #### [facility] ([id number]) [address] [place] [address], [place] 530[address]Aypp nitrogen [Mass/Vol]13 mg/dLNormal5-23ProWoman'S Hospital Of TexasComment on above:Performed By: #### [place], CMP #### [facility] ([id number]) [address] [place] [address], [place] [address]XBH MACROSCOPIC NURon 26-80-7007CFRFGKVWX NURNegativeNormalNEG ProMHollywood Community Hospital of HollywoodComment on above:Performed By: #### NUM #### [facility] ([id number]) [address] [place] [address], [place] [address]PLQNZ/HGB NURLargeAbnormalNEGProWoman'S Hospital Of TexasComment on above:Performed By: #### NUM #### [facility] ([id number]) [address] [place] [address] 13318AKISVGX NURNegativeNormalNEGProWoman'S Hospital Of TexasComment on above:Performed By: #### NUM #### [facility] ([id number]) [address] [place] [address] 61998LVJAVRL NURTraceAbnormalNEGProWoman'S Hospital Of TexasComment on above:Performed By: #### NUM #### [facility] ([id number]) [address] [place] [address] 55829PWEBLRDHY ESTERASE NURNegativeNormalNEGSouthern Ohio Medical CenterComment on above:Performed By: #### NUM #### [facility] ([id number]) [address] [place] [address] 50206SMLUPXM NURNegativeNormalNEGSouthern Ohio Medical CenterComment on above:Performed By: #### NUM #### [facility] ([id number]) [address] [place] [address] 80010WW NUR6.4Lqkklj5.0-8.5ProMedica Kaiser Foundation HospitalComment on above:Performed By: #### NUM #### [facility] ([id number]) [address] [place] [address] 49290WSTBOZY NUR30 mg/dLAbnormalNEGProWoman'S Hospital Of TexasComment on above:Performed By: #### NUM #### [facility] ([id number]) [address] [place] [address] 26724WRFCJLZI GRAVITY JUNIOR>=1.516Rlokoq6.003-1.035ProWoman'S Hospital Of TexasComment on above:Performed By: #### NUM #### [facility] ([id number]) [address] [place] [address] 41227FWMDTBUXMAGC NUR1.0 eu/dLNormal<1.1PGalion Hospital Comment on above:Performed By: #### NUM #### [facility] ([id number]) [address] [facility] [place], FIRST FLOOR [place], [place] [address]UZ ABDOMEN AP 1 VWon 78-67-9789NK ABDOMEN AP 1 VWXR ABDOMEN AP 1 [...] Finalized by Jaxon Merrill on 12/08/2024 6:44 PMNormalProMedica Kaiser Foundation HospitalHP on 44-24-0521[place]yyzLow[place] [address] CC: No chief complaint on file. SUBJECTIVE: [...] to ensure the accuracy of this automated tub tender, some errors in tub tender may have occurred.RutherfordUnOhioHealth Shelby HospitalNURSNOTEon 77-67-1540ZFIEMRZP Interventional Pain Management Nursing Note / Nurse [...] Pain Frequency: Constant/continuous Pain Interventions: Medication (See MAR)RutherfordUnOhioHealth Shelby HospitalOrders Onlyon 70-18-8527Jwxsaj [id number] Elvi Moore 1980 F Date Provider Department Center 12/05/2024 170RUKHSANA YADAV MP PAIN Medical Pavi Family History Problem Relation Age of Onset Brain cancer Mother Breast cancer Sister Kidney cancer Maternal Grandmother Prostate cancer Paternal Grandfather Cancer Father Cancer Sister Family Status - Relation Status Age at Mother Sister Maternal Grandmother Paternal Grandfather Father SisterNormalUniThe Christ HospitalOrders Onlyon 28-48-1479Jebdbe [id number] Elvi Moore 1980 F Date Provider Department Center 12/04/2024 04086-VEFTSMIGDALIA MOE MP PAIN Medical Pavi Family History Problem Relation Age of Onset Brain cancer Mother Breast cancer Sister Kidney cancer Maternal Grandmother Prostate cancer Paternal Grandfather Cancer Father Cancer Sister Family Status - Relation Status Age at Mother Sister Maternal Grandmother Paternal Grandfather Father SisterNormalUniThe Christ HospitalRefillon [id number] [place] Mooreatha 1980 F Date Provider Department Center 12/04/2024 RUKHSANA ESPINOZA MP PAIN Medical Pavi Family History Problem Relation Age of Onset Brain cancer Mother Breast cancer Sister Kidney cancer Maternal Grandmother Prostate cancer Paternal Grandfather Cancer Father Cancer Sister Family Status - Relation Status Age at Mother Sister Maternal Grandmother Paternal Grandfather Father Sister Reason for Visit and Comments: Med Refill [[id number]][facility] SystemFollow-Upon 18-58-1126Xxynoe-[id number] Elvi Moore 1980 F Date Provider Department Center 10/19/2024 RUKHSANA ESPINOZA MP PAIN Medical Pavi Family History Problem Relation Age of Onset Brain cancer Mother Breast cancer Sister Kidney cancer Maternal Grandmother Prostate cancer Paternal Grandfather Cancer Father Cancer Sister Family Status - Relation Status Age at Mother Sister Maternal Grandmother Paternal Grandfather Father Sister Level of Service:98455 CT OFFICE/OUTPATIENT ESTABLISHED LOW MDM 20 MIN Reason for Visit and Comments: Med Management [8202581569] - No bottles for pill count Patient educated on bringing bottles to every visit Follow-up [015822] - Left knee painNormalUniversCincinnati Children's Hospital Medical Center Orders Onlyon 13-60-5029Jvpruy [id number] Elvi Moore 1980 F Date Provider Department Center 10/18/2024 A8511-MOSBJECY, NADINE MP PAIN Medical Pavi Family History Problem Relation Age of Onset Brain cancer Mother Breast cancer Sister Kidney cancer Maternal Grandmother Prostate cancer Paternal Grandfather Cancer Father Cancer Sister Family Status - Relation Status Age at Mother Sister Maternal Grandmother Paternal Grandfather Father SisterNormalUGalion HospitalRefillon [id number] Elvi Moore 1980 F Date Provider Department Center 10/07/2024 RUKHSANA ESPINOZA MP PAIN Medical Pavi Family History Problem Relation Age of Onset Brain cancer Mother Breast cancer Sister Kidney cancer Maternal Grandmother Prostate cancer Paternal Grandfather Cancer Father Cancer Sister Family Status - Relation Status Age at Mother Sister Maternal Grandmother Paternal Grandfather Father Sister Reason for Visit and Comments: Med Refill [257210][facility] SystemOrders Onlyon 87-71-0263Zbaelh [id number] Elvi Moore 1980 F Date Provider Department Center 09/12/2024 RUKHSNAA ESPINOZA MP PAIN Medical Pavi Family History Problem Relation Age of Onset Brain cancer Mother Breast cancer Sister Kidney cancer Maternal Grandmother Prostate cancer Paternal Grandfather Cancer Father Cancer Sister Family Status - Relation Status Age at Mother Sister Maternal Grandmother Paternal Grandfather Father SisterNormalUniPaulding County Hospitalurgical Pathology Reporton 92-68-4441Bgdamuwk Pathology Report(NOTE) Path Number: [id number] -- Diagnosis -- RIGHT PAROTID GLAND, 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 COMMENT: FOR APPLICATIONS SUPPORT ENGINEER, THE SLIDES WERE REVIEWED BY OTHER PATHOLOGISTS (TEERSITA, MATT) WHO AGREE WITH THE DIAGNOSIS. Sathya Lockett M.D. Electronically Signed Out [facility]/07/18/2024 Clinical Information Pre-Op Diagnosis: PLEOMORPHIC ADENOMA [...] tissue surrounding the parotid gland. Processing Lab: [address] [address] Interpretation Performed at [address] [phone] SURGICAL PATHOLOGY CONSULTATION Patient Name: ELVI MOORE [facility] Rec: [id number] [facility] ANATOMIC PATHOLOGY [address] [place], [place] [id number] NoSelect Medical Specialty Hospital - Cincinnati NorthAMYLASEon 01-25-2023 Amylase [Catalytic activity/Vol]64 U/SAwpazc13-267Doj Cleveland ClinicComment on above:Performed By: #### BMP, LIPA, YVETTE, LIVER #### [facility] [address] [place] [address] Dr. Idania RoldanKINDRED HOSPITAL [facility] AUTO DIFFon 70-08-5640YHXL #0.0 103/ulNormal0.0-0.1The Cleveland ClinicComment on above:Performed By: #### BMP, LIPA, YVETTE, LIVER #### [facility] [id number] Idania RoldanBasophils/100 WBC (Bld)0.3 %Normal0.2-2.0[facility] Comment on above:Performed By: #### BMP, LIPA, YVETTE, LIVER #### [facility] [address] [address] [address] Idania To #0.1 103/ulNormal0.0-0.7The Cleveland ClinicComment on above: Performed By: #### BMP, LIPA, YVETTE, LIVER #### [facility] [address] [place] [address] Dr. Idania Larkinosinophils/100 WBC (Bld)1.0 %Normal0.9-7.0[facility] Comment on above:Performed By: #### BMP, LIPA, YVETTE, LIVER #### [facility] [address] [place] [address] Dr. Idania Larkinrythrocyte distribution width (RBC) [Ratio]17.2 %Critically high 11.0-15.0The Cleveland ClinicComment on above:Performed By: #### BMP, LIPA, YVETTE, LIVER #### [facility] [address] [place] [address] Dr. Idania RoldanHematocrit (Bld) [Volume fraction]33.9 %Critically low36.0-48.0 The Cleveland ClinicComment on above:Performed By: #### BMP, LIPA, YVETTE, LIVER #### [facility] [address] [place] [address] Dr. Idania RoldanHemoglobin (Bld) [Mass/Vol]10.1 g/dLCritically low12.0-16.0The [facility] ClinicComment on above:Performed By: #### BMP, LIPA, YVETTE, LIVER #### [facility] [address] [place] [address] Dr. Idania RoldanIG #0.01 10e3/ulNormal0.00-0.03The [facility] Rehabilitation Hospitalment on above:Performed By: #### BMP, LIPA, YVETTE, LIVER #### [facility] [address] [place] [address] Dr. Idania RoldanIG %0.2 %Normal0.0-0.5The [facility] ClinicComment on above: Performed By: #### BMP, LIPA, YVETTE, LIVER #### [facility] [address] [place] [address] Dr. Idania Castro #1.7 103/ulNormal1.2-3.8The [facility] ClinicComment on above:Performed By: #### BMP, LIPA, YVETTE, LIVER #### [facility] [address] [place] [address] Dr. Idania Felixhocytes/100 WBC (Bld)27.9 %Xubyhm88.5-60.0The [facility]houn HospitalComment on above:Performed By: #### BMP, LIPA, YVETTE, LIVER #### [facility] [address] [place] [address] Dr. Idania CisseUAL DIFF REQNONormalThe Cleveland ClinicComment on above: Performed By: #### BMP, LIPA, YVETTE, LIVER #### [facility] [address] [place] [address] Dr. Idania Christensen (RBC) [Entitic mass]20.7 pgCritically low26.7-34.0The Cleveland ClinicComment on above:Performed By: #### BMP, LIPA, YVETTE, LIVER #### [facility] [address] [place] [address] Dr. Idania Christensen (RBC) [Mass/Vol]29.8 g/dLCritically low29.9-35.2The [facility] ClinicComment on above:Performed By: #### BMP, LIPA, YVETTE, LIVER #### [facility] [address] [place] [address] Dr. Idania Christensen (RBC) [Entitic vol]69.6 fLCritically low81.0-99.0The [facility] ClinicComment on above:Performed By: #### BMP, LIPA, YVETTE, LIVER #### [facility] [address] [place] [address] Dr. Idania Salazar #0.4 103/ulNormal0.3-0.8The [facility] ClinicComment on above:Performed By: #### BMP, LIPA, YVETTE, LIVER #### [facility] [address] [place] [address] Dr. Idania Chavezocytes/100 WBC (Bld)7.1 %Normal1.7-12.0[facility] Comment on above:Performed By: #### BMP, LIPA, YVETTE, LIVER #### [facility] [address] [place] [address] Dr. Idania Santa #3.8 103/ulNormal1.4-6.5The [facility] ClinicComment on above:Performed By: #### BMP, LIPA, YVETTE, LIVER #### [facility] [address] [place] [address] Dr. Idania Lottutrophils/100 WBC (Bld)63.5 %Ymkreo17.0-75.0The [facility] ClinicComment on above:Performed By: #### BMP, LIPA, YVETTE, LIVER #### [facility] [address] [place] [address] Dr. Idania RoldanPlatelet mean volume (Bld) [Entitic vol]9.3 fLCritically low 9.5-13.5The [facility] ClinicComment on above:Performed By: #### BMP, LIPA, YVETTE, LIVER #### [facility] [address] [place] [address] Dr. Idania RoldanPLT294 103/sxWdnmdw671-144Oql [facility] ClinicComment on above: Performed By: #### BMP, LIPA, YVETTE, LIVER #### [facility] [address] [place] [address] Dr. Idania RoldanRBC4.87 106/ulNormal4.20-5.40The [facility] ClinicComment on above:Performed By: #### BMP, LIPA, YVETTE, LIVER #### [facility] [address] [place] [address] Dr. Idania RoldanWBC6.0 103/ulNormal4.0-11.0The [facility] ClinicComment on above: Performed By: #### BMP, LIPA, YVETTE, LIVER #### [facility] [address] [place] [address] Dr. Idania RoldanCT ABD/PELVIS WO CONon [id number] ABD/PELVIS WO CONEXAMINATION: CT ABD/PELVIS WO CON, [...] Electronically authenticated by: VEDA BOND Date: 2023-01-25 12:20[facility] URINE PROFILEon [id number] Ql (U)SMALLAbnormal NEGATIVEThe [facility] ClinicComment on above:Performed By: #### BMP, LIPA, YVETTE, LIVER #### [facility] [address] [place] [address] Dr. Idania Sanders (U)CLEARNormalCLEARThe [facility] ClinicComment on above: Performed By: #### BMP, LIPA, YVETTE, LIVER #### [facility] [address] [address] [address] Idania Wagner (U)DK. YELLOWNormalYELLOWCleveland ClinicComment on above:Performed By: #### BMP, LIPA, YVETTE, LIVER #### [facility] [address] [address] [address] Idania Phelps micrscopic examination will be performed if indicated. NormalCleveland ClinicComment on above:Performed By: #### BMP, LIPA, YVETTE, LIVER #### [facility] [address] [place] [address] Dr. Idania RoldanGlucose Ql (U)NegativeNormalNEGATIVECleveland ClinicComment on above:Performed By: #### BMP, LIPA, YVETTE, LIVER #### [facility] [address] [place] [address] Dr. Idania RoldanHemoglobin Ql (U)LARGEAbnormalNEGATIVECleveland Clinic Comment on above:Performed By: #### BMP, LIPA, YVETTE, LIVER #### [facility] [address] [place] [address] Dr. Idania RoldanKetones Ql (U)TRACEAbnormalNEGATIVECleveland ClinicComment on above:Performed By: #### BMP, LIPA, YVETTE, LIVER #### [facility] [address] [place] [address] Dr. Idania RoldanLEUKOCYTESNegativeNormalNEGATIVECleveland ClinicComment on above:Performed By: #### BMP, LIPA, YVETTE, LIVER #### [facility] [address] [place] [address] Dr. Idania Lopeztrite Ql (U)NegativeNormalNEGATIVECleveland ClinicComment on above:Performed By: #### BMP, LIPA, YVETTE, LIVER #### [facility] [address] [place] [address] Dr. Idania RoldanpH (U)5.0 [pH]Normal5-9Cleveland ClinicComment on above: Performed By: #### BMP, LIPA, YVETTE, LIVER #### [facility] [address] [place] [address] Dr. Idania RoldanSPEC GRAVITY>=1.307Qygktomg5.005-<=1.025[facility] Comment on above:Performed By: #### BMP, LIPA, YVETTE, LIVER #### [facility] [address] [place] [address] Dr. Idania RoldanUA PROTEINTRACENormalNEGATIVE/ TRACEThe [facility] ClinicComcorewell [facility] on above:Performed By: #### BMP, LIPA, YVETTE, LIVER #### [facility] [address] [place] [address] Dr. Idania PICKARD INDINDICATEDNormalThAvita Health System Bucyrus HospitalComment on above: Performed By: #### BMP, LIPA, YVETTE, LIVER #### [facility] [address] [place] [address] Dr. Idania Trejo Qn (U)0.2 {Bryan'U}/dLNormal0.2 - 1.0The [facility] ClinicComcorewell health [facility] on above:Performed By: #### BMP, LIPA, YVETTE, LIVER #### [facility] [address] [place] [address] Dr. Idania EpsteinASEluis 70-50-1761Nailqj [Catalytic activity/Vol]226.0 U/LNormal 73.0-393.0The [facility] on above:Performed By: #### BMP, LIPA, YVETTE, LIVER #### [facility] [address] [place] [address] Dr. Idania Hicks PROFILEon [id number] [Mass/Vol]4.1 g/dLNormal3.4-5.0 [facility] on above:Performed By: #### BMP, LIPA, YVETTE, LIVER #### [facility] [address] [place] [address] Dr. Idania RoldanAlbumin/Globulin [Mass ratio]0.9 {ratio}NormalThe [facility] ClinicComcorewell health [facility] on above:Performed By: #### BMP, LIPA, YVETTE, LIVER #### [facility] [address] [place] [address] Dr. Idania Desai [Catalytic activity/Vol]110 U/ZMzmhet58-059Xpk [facility] on above:Performed By: #### BMP, LIPA, YVETTE, LIVER #### [facility] [address] [place] [address] Dr. Idania Arellano [Catalytic activity/Vol]20 U/RQorctu08-89YmjCleveland ClinicComment on above:Performed By: #### BMP, LIPA, YVETTE, LIVER #### [facility] [address] [place] [address] Dr. Idania RoldanAST [Catalytic activity/Vol]11 U/LCritically wxh40-46Osj [facility] ClinicComment on above:Performed By: #### BMP, LIPA, YVETTE, LIVER #### [facility] [address] [place] [address] Dr. Idania IglesiasI, CONJUGATED0.1 mg/dLNormal0.0-0.2The [facility] Comment on above:Performed By: #### BMP, LIPA, YVETTE, LIVER #### [facility] [address] [place] [address] Dr. Idania Iglesiasirubin [Mass/Vol]0.3 mg/dLNormal0.2-1.0[facility] Comment on above:Performed By: #### BMP, LIPA, YVETTE, LIVER #### [facility] [address] [place] [address] Dr. Idania RoldanGlobulin (S) [Mass/Vol]4.4 g/dLNormalThe [facility] ClinicComment on above:Performed By: #### BMP, LIPA, YVETTE, LIVER #### [facility] [address] [place] [address] Dr. Idania RoldanProtein [Mass/Vol]8.5 g/dLCritically high6.4-8.2The [facility] ClinicComment on above:Performed By: #### BMP, LIPA, YVETTE, LIVER #### [facility] [address] [place] [address] Dr. Idania RoldanPROF CHEM 8 (BAS METB)on [id number] gap [Moles/Vol]13.5 mmol/LNormalCleveland ClinicComment on above:Performed By: #### BMP, LIPA, YVETTE, LIVER #### [facility] [address] [place] [address] Dr. Idania RoldanCalcium [Mass/Vol]9.3 mg/dLNormal8.5-10.1[facility] Comment on above:Performed By: #### BMP, LIPA, YVETTE, LIVER #### [facility] [address] [place] [address] Dr. Idania RoldanChloride [Moles/Vol]105 mmol/WWxojuw79-114KbdCleveland Clinic Comment on above:Performed By: #### BMP, LIPA, YVETTE, LIVER #### [facility] [address] [place] [address] Dr. Idania RoldanCO2 [Moles/Vol]27.2 mmol/CGxpgza92.0-32.0[facility] Comment on above:Performed By: #### BMP, LIPA, YVETTE, LIVER #### [facility] [address] [place] [address] Dr. Idania RoldanCreatinine [Mass/Vol]0.74 mg/dLNormal0.55-1.02Cleveland ClinicComment on above:Performed By: #### BMP, LIPA, YVETTE, LIVER #### [facility] [address] [place] [address] Dr. Idania LarkinGFR-AF MONTENEGRIN>60Normal>=60The [facility] ClinicComment on above:Performed By: #### BMP, LIPA, YVETTE, LIVER #### [facility] [address] [place] [address] Dr. Idania LarkinGFR-NON AF MONTENEGRIN>60Normal>=60The [facility] ClinicComment on above:Performed By: #### BMP, LIPA, YVETTE, LIVER #### [facility] [address] [place] [address] Dr. Idania RoldanGlucose [Mass/Vol]97 mg/cGCsjnfc47-533XbmCleveland Clinic Comment on above:Performed By: #### BMP, LIPA, YVETTE, LIVER #### [facility] [address] [place] [address] Dr. Idania RoldanPotassium [Moles/Vol]3.7 mmol/LNormal3.5-5.1The [facility] Comment on above:Performed By: #### BMP, LIPA, YVETTE, LIVER #### [facility] [address] [address] [address] Idania Gimenezdium [Moles/Vol]142 mmol/RWjccwy527-397Xii [facility] Comment on above:Performed By: #### BMP, LIPA, YVETTE, LIVER #### [facility] [address] [address] [address] Idania Licona nitrogen [Mass/Vol]13.0 mg/dLNormal7.0-18.0The [facility] ClinicComment on above:Performed By: #### BMP, LIPA, YVETTE, LIVER #### [facility] [address] [address] [address] Idania Licona nitrogen/Creatinine [Mass ratio]17.6 mg/mgNoTriHealthComment on above:Performed By: #### BMP, LIPA, YVETTE, LIVER #### [facility] [address] [place] [address] Dr. Idania Mcintosh MICROSCOPIC ONLYon [id number] SEENNormalNONE SEENThe [facility] ClinicComment on above:Performed By: #### BMP, LIPA, YVETTE, LIVER #### [facility] [address] [place] [address] Dr. Idania Kinney identified Cx Nom (U)NOT INDICATEDNoTriHealthComment on above:Performed By: #### BMP, LIPA, YVETTE, LIVER #### [facility] [address] [place] [address] Dr. Idania Marquez SEENNormalNONE SEENCleveland ClinicComment on above:Performed By: #### BMP, LIPA, YVETTE, LIVER #### [facility] [address] [place] [address] Dr. Idania Barajas LM Nom (Urine sed)NONE SEENNormalNONE SEENCleveland ClinicComment on above:Performed By: #### BMP, LIPA, YVETTE, LIVER #### [facility] [address] [address] [address] Idania Larkinpithelial cells LM Ql (Urine sed)FEWAbnormalNONE SEEN /RAREThe [facility] ClinicComment on above:Performed By: #### BMP, LIPA, YVETTE, LIVER #### [facility] [address] [place] [address] Dr. Idania RoldanMUCARLOSUSWAI SEENNormalNONE SEENCleveland ClinicComment on above:Performed By: #### BMP, LIPA, YVETTE, LIVER #### [facility] [address] [address] [address] Idania Stanton (U) [#/Vol]/uLAbnormal0-2The [facility] ClinicComment on above:Performed By: #### BMP, LIPA, YVETTE, LIVER #### [facility] [address] [place] [address] Dr. Idania Turner SEENNormalNONE SEENCleveland ClinicComment on above: Performed By: #### BMP, LIPA, YVETTE, LIVER #### [facility] [address] [place] [address] Dr. Idania RoldanXR KUB 1 VIEWon [id number] KUB 1 VIEWEXAM: XR KUB 1 VIEW, [...] Electronically authenticated by: DENILSON AUSTIN Date: 2023-01-24 19:51NoTriHealthAMYLASEon [id number] [Catalytic activity/Vol]64 U/L Zrmsse93-487Ykn [facility] ClinicComment on above:Performed By: #### PT, PTT #### [facility] [address] [place] [address] Dr. Idania White AUTO DIFFon [id number] #0.0 103/ulNormal0.0-0.1The [facility] ClinicComment on above:Performed By: #### BMP, LIPA, YVETTE, LIVER #### [facility] [address] [place] [address] Dr. Idania RoldanBasophils/100 WBC (Bld)0.2 %Normal0.2-2.0The [facility] Comment on above:Performed By: #### BMP, LIPA, YVETTE, LIVER #### [facility] [address] [place] [address] Dr. Idania LarkinO #0.1 103/ulNormal0.0-0.7The [facility] ClinicComment on above: Performed By: #### BMP, LIPA, YVETTE, LIVER #### [facility] [address] [place] [address] Dr. Idanai Larkinosinophils/100 WBC (Bld)0.9 %Normal0.9-7.0[facility] Comment on above:Performed By: #### BMP, LIPA, YVETTE, LIVER #### [facility] [address] [place] [address] Dr. Idania Larkinrythrocyte distribution width (RBC) [Ratio]17.2 %Critically high 11.0-15.0The [facility] ClinicComment on above:Performed By: #### BMP, LIPA, YVETTE, LIVER #### [facility] [address] [place] [address] Dr. Idania RoldanHematocrit (Bld) [Volume fraction]32.5 %Critically low36.0-48.0 The [facility] ClinicComment on above:Performed By: #### BMP, LIPA, YVETTE, LIVER #### [facility] [address] [place] [address] Dr. Idania RoldanHemoglobin (Bld) [Mass/Vol]9.5 g/dLCritically low12.0-16.0The [facility] ClinicComment on above:Performed By: #### BMP, LIPA, YVETTE, LIVER #### [facility] [address] [place] [address] Dr. Idania Benson #0.01 10e3/ulNormal0.00-0.03The [facility] ClinicComment on above:Performed By: #### BMP, LIPA, YVETTE, LIVER #### [facility] [address] [place] [address] Dr. Idania Benson %0.2 %Normal0.0-0.5The [facility] ClinicComment on above: Performed By: #### BMP, LIPA, YVETTE, LIVER #### [facility] [address] [place] [address] Dr. Idania Castro #2.0 103/ulNormal1.2-3.8The [facility] ClinicComment on above:Performed By: #### BMP, LIPA, YVETTE, LIVER #### [facility] [address] [place] [address] Dr. Idania Felixhocytes/100 WBC (Bld)34.7 %Jvlzim07.5-60.0The [facility] ClinicComment on above:Performed By: #### BMP, LIPA, YVETTE, LIVER #### [facility] [address] [place] [address] Dr. Idania CisseUAL DIFF REQNONormalThe [facility] ClinicComment on above: Performed By: #### BMP, LIPA, YVETTE, LIVER #### [facility] [address] [place] [address] Dr. Idania Christensen (RBC) [Entitic mass]20.5 pgCritically low26.7-34.0The [facility] ClinicComment on above:Performed By: #### BMP, LIPA, YVETTE, LIVER #### [facility] [address] [place] [address] Dr. Idania Christensen (RBC) [Mass/Vol]29.2 g/dLCritically low29.9-35.2The [facility] ClinicComment on above:Performed By: #### BMP, LIPA, YVETTE, LIVER #### [facility] [address] [place] [address] Dr. Idania ChristensenV (RBC) [Entitic vol]70.2 fLCritically low81.0-99.0The [facility] ClinicComment on above:Performed By: #### BMP, LIPA, YVETTE, LIVER #### [facility] [address] [place] [address] Dr. Idania Salazar #0.5 103/ulNormal0.3-0.8The [facility] ClinicComment on above:Performed By: #### BMP, LIPA, YVETTE, LIVER #### [facility] [address] [place] [address] Dr. Idania Chavezocytes/100 WBC (Bld)8.7 %Normal1.7-12.0The [facility] Comment on above:Performed By: #### BMP, LIPA, YVETTE, LIVER #### [facility] [address] [place] [address] Dr. Idania Santa #3.2 103/ulNormal1.4-6.5The [facility] ClinicComment on above:Performed By: #### BMP, LIPA, YVETTE, LIVER #### [facility] [address] [place] [address] Dr. Idania Lottutrophils/100 WBC (Bld)55.3 %Ehvypb80.0-75.0The [facility] ClinicComment on above:Performed By: #### BMP, LIPA, YVETTE, LIVER #### [facility] [address] [place] [address] Dr. Idania Moralet mean volume (Bld) [Entitic vol]9.7 fLNormal9.5-13.5The [facility] ClinicComment on above:Performed By: #### BMP, LIPA, YVETTE, LIVER #### [facility] [address] [place] [address] Dr. Idania RoldanPLT310 103/sjBduqzt187-090Zfr [facility] ClinicComment on above: Performed By: #### BMP, LIPA, YVETTE, LIVER #### [facility] [address] [place] [address] Dr. Idania RoldanRBC4.63 106/ulNormal4.20-5.40The [facility]ment on above:Performed By: #### BMP, LIPA, YVETTE, LIVER #### [facility] [address] [place] [address] Dr. Idania RoldanWBC5.8 103/ulNormal4.0-11.0The [facility] ClinicComment on above: Performed By: #### BMP, LIPA, YVETTE, LIVER #### [facility] [address] [place] [address] Dr. Idania RoldanCULTTANO URINEon [id number] URINECulture Observations: MODERATE GROWTH OF MIXED GENITAL ALE. NO POTENTIAL PATHOGENS SEEN.NormalThe [facility] ClinicComment on above:Performed By: #### PT, PTT #### [facility] [address] [place] [address] Dr. Idania RoldanLIPASEon 95-66-1139Urbxtk [Catalytic activity/Vol]251.0 U/LNormal 73.0-393.0The [facility] ClinicComment on above:Performed By: #### PT, PTT #### [facility] [address] [place] [address] Dr. Idania RoldanPROF 14(COMP METB)on 80-62-9440Efrjwfg [Mass/Vol]3.8 g/dLNormal 3.4-5.0The [facility] ClinicComment on above:Performed By: #### PT, PTT #### [facility] [address] [place] [address] Dr. Idania RoldanAlbumin/Globulin [Mass ratio]1.0 {ratio}NormalThe [facility] Hospitalment on above:Performed By: #### PT, PTT #### [facility] [address] [place] [address] Dr. Idania Desai [Catalytic activity/Vol]107 U/PMklblo71-433Gvh [facility] Hospitalment on above:Performed By: #### PT, PTT #### [facility] [address] [place] [address] Dr. Idania Arellano [Catalytic activity/Vol]17 U/GCmboqn04-62Nvh [facility] HospitalComment on above:Performed By: #### PT, PTT #### [facility] [address] [address] [address] Idania Peraltaon gap [Moles/Vol]13.3 mmol/LNormalThe [facility] Comment on above:Performed By: #### PT, PTT #### [facility] [address] [address] [address] Idania RoldanAST [Catalytic activity/Vol]9 U/LCritically rbj51-11Vqi [facility] ClinicComment on above:Performed By: #### PT, PTT #### [facility] [address] [place] [address] Dr. Idania RoldanBilirubin [Mass/Vol]0.3 mg/dLNormal0.2-1.0[facility] Comment on above:Performed By: #### PT, PTT #### [facility] [address] [place] [address] Dr. Idania RoldanCalcium [Mass/Vol]9.0 mg/dLNormal8.5-10.1[facility] Comment on above:Performed By: #### PT, PTT #### [facility] [address] [place] [address] Dr. Idania RoldanChloride [Moles/Vol]103 mmol/PWxsjwx85-028Dnb [facility] Comment on above:Performed By: #### PT, PTT #### [facility] [address] [address] [address] Idania RoldanCO2 [Moles/Vol]28.2 mmol/TDjdvrh47.0-32.0The [facility] Comment on above:Performed By: #### PT, PTT #### [facility] [address] [place] [address] Dr. Idania RoldanCreatinine [Mass/Vol]0.81 mg/dLNormal0.55-1.02The [facility] ClinicComment on above:Performed By: #### PT, PTT #### [facility] [address] [place] [address] Dr. Emerson ChangEGFR-AF MONTENEGRIN>60Normal>=60The [facility] ClinicComment on above:Performed By: #### PT, PTT #### [facility] [address] [address] [address] Idania Gagnon-NON AF MONTENEGRIN>60Normal>=60The [facility] ClinicComment on above:Performed By: #### PT, PTT #### [facility] [address] [address] [address] Idania RoldanGlobulin (S) [Mass/Vol]3.9 g/dLNormalThe [facility] ClinicComment on above:Performed By: #### PT, PTT #### [facility] [address] [address] [address] Idania RoldanGlucose [Mass/Vol]93 mg/qHAxjdjt89-023OxrC[facility] Clinic Comment on above:Performed By: #### PT, PTT #### [facility] [address] [address] [address] Idania RoldanPotassium [Moles/Vol]3.5 mmol/LNormal3.5-5.1[facility] Comment on above:Performed By: #### PT, PTT #### [facility] [address] [address] [address] Idania RoldanProtein [Mass/Vol]7.7 g/dLNormal6.4-8.2[facility] Comment on above:Performed By: #### PT, PTT #### [facility] [address] [address] [address] Idania RoldanSodium [Moles/Vol]141 mmol/AFvzipd602-842PfsC[facility] Clinic Comment on above:Performed By: #### PT, PTT #### [facility] [address] [address] [address] Idania RoldanUrea nitrogen [Mass/Vol]11.0 mg/dLNormal7.0-18.0The [facility] ClinicComment on above:Performed By: #### PT, PTT #### [facility] [address] [address] [address] Idania RoldanUrea nitrogen/Creatinine [Mass ratio]13.6 mg/mgNormalThe [facility] ClinicComment on above:Performed By: #### PT, PTT #### [facility] [address] [address] [address] Idania Bee RANDOM W/MICROSCOPICon [id number]S SEENCleveland ClinicComment on above:Performed By: #### BMP, LIPA, YVETTE, LIVER #### [facility] [address] [address] [address] Idania Iglesiasirubin Ql (U)SMALLAbnormalNEGATIVECleveland ClinicComment on above:Performed By: #### BMP, LIPA, YVETTE, LIVER #### [facility] [address] [place] [address] Dr. Idania Marquez SEENNormalNONE SEENCleveland ClinicComcorewell health [facility] on above:Performed By: #### BMP, LIPA, YVETTE, LIVER #### [facility] [address] [place] [address] Dr. Idania Sanders (U)CLEARNormalCLEARCleveland ClinicComment on above: Performed By: #### BMP, LIPA, YVETTE, LIVER #### [facility] [address] [place] [address] Dr. Idania Wagner (U)DK. YELLOWNormalYELLOWCleveland ClinicComment on above:Performed By: #### BMP, LIPA, YVETTE, LIVER #### [facility] [address] [place] [address] Dr. Idania RoldanCrman LM Nom (Urine sed)NONE SEENNormalNONE SEENCleveland ClinicComment on above:Performed By: #### BMP, LIPA, YVETTE, LIVER #### [facility] [address] [place] [address] Dr. Emerson ChangEpithelial cells LM Ql (Urine sed)FEWAbnormalNONE SEEN /RAREThe [facility] ClinicComment on above:Performed By: #### BMP, LIPA, YVETTE, LIVER #### [facility] [address] [place] [address] Dr. Idania RoldanGlucose Ql (U)NegativeNormalNEGATIVECleveland ClinicComment on above:Performed By: #### BMP, LIPA, YVETTE, LIVER #### [facility] [address] [address] [address] Idania RoldanHemoglobin Ql (U)LARGEAbnormalNEGATIVECleveland Clinic Comment on above:Performed By: #### BMP, LIPA, YVETTE, LIVER #### [facility] [address] [address] [address] Idania RoldanKetones Ql (U)TRACEAbnormalNEGATIVECleveland ClinicComment on above:Performed By: #### BMP, LIPA, YVETTE, LIVER #### [facility] [address] [place] [address] Dr. Idania RoldanLEUKOCYTESNegativeNormalNEGATIVECleveland ClinicComment on above:Performed By: #### BMP, LIPA, YVETTE, LIVER #### [facility] [address] [address] [address] Idania BrooksCOUSMODERATEAbnormalNONE SEENCleveland ClinicComment on above:Performed By: #### BMP, LIPA, YVETTE, LIVER #### [facility] [address] [address] [address] Idania Lopeztrite Ql (U)NegativeNormalNEGATIVECleveland ClinicComment on above:Performed By: #### BMP, LIPA, YVETTE, LIVER #### [facility] [address] [address] [address] Idania RoldanpH (U)5.0 [pH]Normal5-9Cleveland ClinicComment on above: Performed By: #### BMP, LIPA, YVETTE, LIVER #### [facility] [address] [address] [address] Idania FischerC (U) [#/Vol]/uLAbnormal0-2C[facility] ClinicComment on above:Performed By: #### BMP, LIPA, YVETTE, LIVER #### [facility] [address] [address] [address] Idania RoldanSPEC GRAVITY>=1.717Egelezin9.005-<=1.025[facility] Comment on above:Performed By: #### BMP, LIPA, YVETTE, LIVER #### [facility] [address] [place] [address] Dr. Idania RoldanUA PROTEINTRACENormalNEGATIVE/ TRACEThe Cleveland ClinicComment on above:Performed By: #### BMP, LIPA, YVETTE, LIVER #### [facility] [address] [place] [address] Dr. Idania RoldanUrobilinogen Qn (U)0.2 {Bryan'U}/dLNormal0.2 - 1.0The [facility] ClinicComment on above:Performed By: #### BMP, LIPA, YVETTE, LIVER #### [facility] [address] [place] [address] Dr. Idania RoldanWBC0-2AbnormalNONE SEENThe [facility] ClinicComment on above: Performed By: #### BMP, LIPA, YVETTE, LIVER #### [facility] [address] [place] [address] Dr. Idania RoldanCovid-19 PCR ([facility])on [id number]-CoV-2 (COVID-19) RNA MAMIE+probe Ql (Unsp spec)DetectedCritically abnormalNOT DETECTEDThe Cleveland ClinicComment on above:Result Comment: This test is not yet approved or cleared by the [place] FDA. When there are no FDA-approved or cleared tests available, and other criteria are met, FDA can make tests available under an emergency access mechanism called an Emergency Use Authorization (EUA). The EUA for this test is supported by the [place] of Health and Human Service's (HHS's) declaration [...] be used). Performed By: #### CVDTBH #### [facility] [address] [place] [address] Dr. Idania King AND B AGon [id number] [facility] on above:Result Comment: Negative for Flu A protein angiten. Infection due to Flu A cannot be ruled out. FluA angiten in the sample may be below the detection limit of the test.Performed By: #### PT, PTT #### [facility] [address] [place] [address] Dr. Idania RochaUBNEGHSINDIGO [facility] on above: Result Comment: Negative for Flu B protein antigen. Infection due to Flu B cannot be ruled out. FluB antigen in the sample may be below the detection limit of the test.Performed By: #### PT, PTT #### [facility] [address] [place] [address] Dr. Idania King AGNegativeNormalNEGATIVE SEE COMMENTThe [facility] on above:Performed By: #### PT, PTT #### [facility] [address] [place] [address] Dr. Idania Tavarez AGNegativeNormalNEGATIVE SEE COMMENTThe [facility] on above:Performed By: #### PT, PTT #### [facility] [address] [place] [address] Dr. Idania RoldanINTERNAL CONTROLSWithin Normal LimitsNormalWithin Normal Limits The [facility] ClinicComcorewell [facility] on above:Performed By: #### PT, PTT #### [facility] [address] [place] [address] Dr. Idania RoldanAMYLASEon [id number] [Catalytic activity/Vol]62 U/LNormal 25-115[facility] on above:Performed By: #### BMP, LIPA, YVETTE, LIVER #### [facility] [address] [place] [address] Dr. Idania RoldanCBC AUTO DIFFon [id number] #0.0 103/ulNormal0.0-0.1The [facility] ClinicComment on above:Performed By: #### CBC #### [facility] [address] [place] [address] Dr. Idania RoldanBasophils/100 WBC (Bld)0.3 %Normal0.2-2.0[facility] Comment on above:Performed By: #### CBC #### [facility] [address] [place] [address] Dr. Idania To #0.1 103/ulNormal0.0-0.7The [facility] ClinicComment on above: Performed By: #### CBC #### [facility] [address] [place] [address] Dr. Idania Larkinosinophils/100 WBC (Bld)1.2 %Normal0.9-7.0[facility] Comment on above:Performed By: #### CBC #### [facility] [address] [place] [address] Dr. Idania Larkinrythrocyte distribution width (RBC) [Ratio]14.8 %Zjzxtw74.0-15.0 [facility] ClinicComment on above:Performed By: #### CBC #### [facility] [address] [place] [address] Dr. Idania RoldanHematocrit (Bld) [Volume fraction]31.8 %Critically low36.0-48.0 The [facility] ClinicComment on above:Performed By: #### CBC #### [facility] [address] [place] [address] Dr. Idania RoldanHemoglobin (Bld) [Mass/Vol]9.6 g/dLCritically low12.0-16.0The [facility] ClinicComment on above:Performed By: #### CBC #### [facility] [address] [place] [address] Dr. Idania Benson #0.01 10e3/ulNormal0.00-0.03The [facility] ClinicComment on above:Performed By: #### CBC #### [facility] [address] [place] [address] Dr. Idania Benson %0.1 %Normal0.0-0.5The [facility] ClinicComment on above: Performed By: #### CBC #### [facility] [address] [place] [address] Dr. Idania Castro #3.3 103/ulNormal1.2-3.8The [facility] ClinicComment on above:Performed By: #### CBC #### [facility] [address] [place] [address] Dr. Idania Felixhocytes/100 WBC (Bld)45.4 %Ebgflt27.5-60.0The [facility] ClinicComment on above:Performed By: #### CBC #### [facility] [address] [place] [address] Dr. Idania CisseUAL DIFF REQNONormalThe Cleveland ClinicComment on above: Performed By: #### CBC #### [facility] [address] [place] [address] Dr. Idania Christensen (RBC) [Entitic mass]22.7 pgCritically low26.7-34.0The [facility] ClinicComment on above:Performed By: #### CBC #### [facility] [address] [place] [address] Dr. Idania Christensen (RBC) [Mass/Vol]30.2 g/wFBdxzgt64.9-35.2The [facility] ClinicComment on above:Performed By: #### CBC #### [facility] [address] [place] [address] Dr. Idania Christensen (RBC) [Entitic vol]75.4 fLCritically low81.0-99.0The [facility] ClinicComment on above:Performed By: #### CBC #### [facility] [address] [place] [address] Dr. Idania Salazar #0.5 103/ulNormal0.3-0.8The [facility] ClinicComment on above:Performed By: #### CBC #### [facility] [address] [place] [address] Dr. Idania Chavezocytes/100 WBC (Bld)6.2 %Normal1.7-12.0[facility] Comment on above:Performed By: #### CBC #### [facility] [address] [place] [address] Dr. Idania LottUT #3.4 103/ulNormal1.4-6.5The [facility] ClinicComment on above:Performed By: #### CBC #### [facility] [address] [place] [address] Dr. Idania Lottutrophils/100 WBC (Bld)46.8 %Nzsqsw72.0-75.0The [facility] ClinicComment on above:Performed By: #### CBC #### [facility] [address] [place] [address] Dr. Idania Moralet mean volume (Bld) [Entitic vol]8.5 fLCritically low 9.5-13.5The [facility] ClinicComment on above:Performed By: #### CBC #### [facility] [address] [place] [address] Dr. Idania RoldanPLT273 103/hhEtlyhp178-626Nvf Cleveland ClinicComment on above: Performed By: #### CBC #### [facility] [address] [place] [address] Dr. Idania RoldanRBC4.22 106/ulNormal4.20-5.40The [facility] ClinicComment on above:Performed By: #### CBC #### [facility] [address] [place] [address] Dr. Idania RoldanWBC7.2 103/ulNormal4.0-11.0The [facility] ClinicComment on above: Performed By: #### CBC #### [facility] [address] [place] [address] Dr. Idania RoldanCULTTANO URINEon [id number] URINECulture Observations: MODERATE GROWTH OF MIXED GENITAL ALE. NO POTENTIAL PATHOGENS SEEN.NormalThe Cleveland ClinicComment on above:Performed By: #### PT, PTT #### [facility] [address] [place] [address] Dr. Idania EpsteinASEon [id number] [Catalytic activity/Vol]256.0 U/LNormal 73.0-393.0The [facility] ClinicComment on above:Performed By: #### BMP, LIPA, YVETTE, LIVER #### [facility] [address] [place] [address] Dr. Idania RoldanPROF 14(COMP METB)on 91-77-6512Vtdhegb [Mass/Vol]4.1 g/dLNormal 3.4-5.0The [facility] ClinicComment on above:Performed By: #### BMP, LIPA, YVETTE, LIVER #### [facility] [address] [place] [address] Dr. Idania RoldanAlbumin/Globulin [Mass ratio]1.0 {ratio}NormalThe Cleveland ClinicComment on above:Performed By: #### BMP, LIPA, YVETTE, LIVER #### [facility] [address] [place] [address] Dr. Idania SalasP [Catalytic activity/Vol]93 U/AVaryrz63-198Hyp [facility] Hospitalment on above:Performed By: #### BMP, LIPA, YVETTE, LIVER #### [facility] [address] [place] [address] Dr. Idania Arellano [Catalytic activity/Vol]13 U/LCritically unk60-51Wlv Cleveland ClinicComment on above:Performed By: #### BMP, LIPA, YVETTE, LIVER #### [facility] [address] [place] [address] Dr. Idania Juan gap [Moles/Vol]9.8 mmol/LNormalThe [facility] ClinicComment on above:Performed By: #### BMP, LIPA, YVETTE, LIVER #### [facility] [address] [place] [address] Dr. Idania RoldanAST [Catalytic activity/Vol]12 U/LCritically ray27-50Sco [facility] ClinicComment on above:Performed By: #### BMP, LIPA, YVETTE, LIVER #### [facility] [address] [place] [address] Dr. Idania RoldanBilirubin [Mass/Vol]0.2 mg/dLNormal0.2-1.0[facility] Comment on above:Performed By: #### BMP, LIPA, YVETTE, LIVER #### [facility] [address] [place] [address] Dr. Idania RoldanCalcium [Mass/Vol]9.2 mg/dLNormal8.5-10.1[facility] Comment on above:Performed By: #### BMP, LIPA, YVETTE, LIVER #### [facility] [address] [place] [address] Dr. Idania RoldanChloride [Moles/Vol]101 mmol/GVqazxd73-076ZshCleveland Clinic Comment on above:Performed By: #### BMP, LIPA, YVETTE, LIVER #### [facility] [address] [place] [address] Dr. Idania RoldanCO2 [Moles/Vol]31.8 mmol/FWofiaw86.0-32.0[facility] Comment on above:Performed By: #### BMP, LIPA, YVETTE, LIVER #### [facility] [address] [place] [address] Dr. Idania RoldanCreatinine [Mass/Vol]0.71 mg/dLNormal0.55-1.02The [facility] ClinicComment on above:Performed By: #### BMP, LIPA, YVETTE, LIVER #### [facility] [address] [place] [address] Dr. Idania LarkinGFR-AF MONTENEGRIN>60Normal>=60The [facility] ClinicComment on above:Performed By: #### BMP, LIPA, YVETTE, LIVER #### [facility] [address] [place] [address] Dr. Idania LarkinGFR-NON AF MONTENEGRIN>60Normal>=60The [facility] ClinicComment on above:Performed By: #### BMP, LIPA, YVETTE, LIVER #### [facility] [address] [place] [address] Dr. Yilan ChangGlobulin (S) [Mass/Vol]4.0 g/dLNormKettering Health Behavioral Medical CenterComment on above:Performed By: #### BMP, LIPA, YVETTE, LIVER #### [facility] [address] [address] [address] Idania RoldanGlucose [Mass/Vol]92 mg/zHAlnzhh95-519KoxCleveland Clinic Comment on above:Performed By: #### BMP, LIPA, YVETTE, LIVER #### [facility] [address] [place] [address] Dr. Idania RoldanPotassium [Moles/Vol]3.6 mmol/LNormal3.5-5.1[facility] Comment on above:Performed By: #### BMP, LIPA, YVETTE, LIVER #### [facility] [address] [place] [address] Dr. Idania RoldanProtein [Mass/Vol]8.1 g/dLNormal6.4-8.2[facility] Comment on above:Performed By: #### BMP, LIPA, YVETTE, LIVER #### [facility] [address] [place] [address] Dr. Idania Gimenezdium [Moles/Vol]139 mmol/PHhjwok603-970YlgCleveland Clinic Comment on above:Performed By: #### BMP, LIPA, YVETTE, LIVER #### [facility] [address] [place] [address] Dr. Idania RoldanUrea nitrogen [Mass/Vol]15.0 mg/dLNormal7.0-18.0The [facility] ClinicComment on above:Performed By: #### BMP, LIPA, YVETTE, LIVER #### [facility] [address] [place] [address] Dr. Idania RoldanUrea nitrogen/Creatinine [Mass ratio]21.1 mg/mgNoTriHealthComment on above:Performed By: #### BMP, LIPA, YVETTE, LIVER #### [facility] [address] [place] [address] Dr. Idania RoldanUA RANDOM W/MICROSCOPICon [id number]T SEENCleveland ClinicComment on above:Performed By: #### BMP, LIPA, YVETTE, LIVER #### [facility] [address] [address] [address] Idania RoldanBilirubin Ql (U)NegativeNormalNEGATIVEDayton Va Medical Center on above:Performed By: #### BMP, LIPA, YVETTE, LIVER #### [facility] [address] [place] [address] Dr. Idania PollackE SEENNormalNONE SEENCleveland ClinicComment on above:Performed By: #### BMP, LIPA, YVETTE, LIVER #### [facility] [address] [place] [address] Dr. Idania RoldanClarity (U)CLEARNormalCLEARCleveland ClinicComment on above: Performed By: #### BMP, LIPA, YVETTE, LIVER #### [facility] [address] [place] [address] Dr. Idania Zelayalor (U)YELLOWNormalYELLOWCleveland ClinicComment on above: Performed By: #### BMP, LIPA, YVETTE, LIVER #### [facility] [address] [place] [address] Dr. Idania RoldanCrystals LM Nom (Urine sed)NONE SEENNormalNONE SEENCleveland ClinicComcorewell health butterworth hospital on above:Performed By: #### BMP, LIPA, YVETTE, LIVER #### [facility] [address] [place] [address] Dr. Idania Larkinpithelial cells LM Ql (Urine sed)FEWAbnormalNONE SEEN /RAREThe [facility] ClinicComment on above:Performed By: #### BMP, LIPA, YVETTE, LIVER #### [facility] [address] [place] [address] Dr. Idania RoldanGlucose Ql (U)NegativeNormalNEGATIVECleveland ClinicComment on above:Performed By: #### BMP, LIPA, YVETTE, LIVER #### [facility] [address] [place] [address] Dr. Idania RoldanHemoglobin Ql (U)NegativeNormalNEGATIVEThe [facility] Comment on above:Performed By: #### BMP, LIPA, YVETTE, LIVER #### [facility] [address] [address] [address] Idania Gómez Ql (U)NegativeNormalNEGATIVECleveland ClinicComment on above:Performed By: #### BMP, LIPA, YVETTE, LIVER #### [facility] [address] [address] [address] Idania RoldanLEUKOCYTESSMALLAbnormalNEGATIVEThe [facility] ClinicComment on above:Performed By: #### BMP, LIPA, YVETTE, LIVER #### [facility] [address] [address] [address] Idania BrooksCOUSTRACEAbnormalNONE SEENCleveland ClinicComment on above:Performed By: #### BMP, LIPA, YVETTE, LIVER #### [facility] [address] [address] [address] Idania Galicia Ql (U)NegativeNormalNEGATIVECleveland ClinicComment on above:Performed By: #### BMP, LIPA, YVETTE, LIVER #### [facility] [address] [address] [address] Idania RoldanpH (U)7.0 [pH]Normal5-9The [facility] ClinicComment on above: Performed By: #### BMP, LIPA, YVETTE, LIVER #### [facility] [address] [address] [address] Idania Cerrato SEENAbnormal0-2The [facility] ClinicComment on above: Performed By: #### BMP, LIPA, YVETTE, LIVER #### [facility] [address] [address] [address] Idania RoldanSPEC GRAVITY1.199Pjdbbq5.005-<=1.025The [facility] ClinicComment on above:Performed By: #### BMP, LIPA, YVETTE, LIVER #### [facility] [address] [address] [address] Idania RoldanUA PROTEINNegativeNormalNEGATIVE/ TRACECleveland Clinic Comment on above:Performed By: #### BMP, LIPA, YVETTE, LIVER #### [facility] [address] [address] [address] Idania Trejo Qn (U)0.2 {Bryan'U}/dLNormal0.2 - 1.0The [facility] ClinicComment on above:Performed By: #### MANOLO, LIPA, YVETTE, LIVER #### [facility] [address] [address] [address] Idania RoldanWBC5-10AbnormalNONE SEENThe [facility] ClinicComment on above: Performed By: #### MANOLO, LIPA, YVETTE, LIVER #### [facility] [address] [address] [address] Idania RoldanCovid-19 PCR (CVDTB)on [id number]-CoV-2 (COVID-19) RNA MAMIE+probe Ql (Unsp spec)Not detectedNormalNOT DETECTEDThe [facility] Comment on above:Result Comment: This test is not yet approved or cleared by the [place] FDA. When there are no FDA-approved or cleared tests available, and other criteria are met, FDA can make tests available under an emergency access mechanism called an Emergency Use Authorization (EUA). The EUA for this test is supported by the [place] of Health and Human Service's (HHS's) declaration [...] and symptoms consistent with SARS-CoV-2.Performed By: #### CVDTBH #### [facility] [address] [place] [address] Dr. Idania Monroy A AND B AGon [id number] Summa HealthComment on above:Result Comment: Negative for Flu A protein angiten. Infection due to Flu A cannot be ruled out. FluA angiten in the sample may be below the detection limit of the test.Performed By: #### BMP, LIPA, YVETTE, LIVER #### [facility] [address] [place] [address] Dr. Idania RoldanINFLUBNEGHSINDIGO Summa HealthComment on above: Result Comment: Negative for Flu B protein antigen. Infection due to Flu B cannot be ruled out. FluB antigen in the sample may be below the detection limit of the test.Performed By: #### BMP, LIPA, YVETTE, LIVER #### [facility] [address] [place] [address] Dr. Idania King AGNegativeNormalNEGATIVE SEE COMMENTThe [facility] ClinicComment on above:Performed By: #### BMP, LIPA, YVETTE, LIVER #### [facility] [address] [place] [address] Dr. Idania Tavarez AGNegativeNormalNEGATIVE SEE COMMENTThe [facility] ClinicComment on above:Performed By: #### BMP, LIPA, YVETTE, LIVER #### [facility] [address] [place] [address] Dr. Idania RoldanINTERNAL CONTROLSWithin Normal LimitsNormalWithin Normal Limits The [facility] ClinicComment on above:Performed By: #### BMP, LIPA, YVETTE, LIVER #### [facility] [address] [place] [address] Dr. Idania RoldanCovid-19 PCR ([facility])on [id number]-CoV-2 (COVID-19) RNA MAMIE+probe Ql (Unsp spec)Not detectedNormalNOT DETECTEDThe [facility] Comment on above:Result Comment: This test is not yet approved or cleared by the [place] FDA. When there are no FDA-approved or cleared tests available, and other criteria are met, FDA can make tests available under an emergency access mechanism called an Emergency Use Authorization (EUA). The EUA for this test is supported by the [employer] of Health and Human Service's (HHS's) declaration [...] symptoms consistent with SARS-CoV-2.Performed By: #### BMP, YVETTE ABRAMS, LIVER #### [facility] [address] [place] [address] Dr. Idania Roth AUTO DIFFon [id number] #0.0 103/ulNormal0.0-0.1C[facility] ClinicComment on above:Performed By: #### PT, PTT #### [facility] [address] [place] [address] Dr. Idania Valentinsophils/100 WBC (Bld)0.4 %Normal0.2-2.0[facility] Comment on above:Performed By: #### PT, PTT #### [facility] [address] [place] [address] Dr. Idania To #0.1 103/ulNormal0.0-0.7The [facility] ClinicComment on above: Performed By: #### PT, PTT #### [facility] [address] [place] [address] Dr. Idania Larkinosinophils/100 WBC (Bld)1.3 %Normal0.9-7.0[facility] Comment on above:Performed By: #### PT, PTT #### [facility] [address] [place] [address] Dr. Idania Larkinrythrocyte distribution width (RBC) [Ratio]15.3 %Critically high 11.0-15.0The [facility] ClinicComment on above:Performed By: #### PT, PTT #### [facility] [address] [place] [address] Dr. Idania RoldanHematocrit (Bld) [Volume fraction]32.1 %Critically low36.0-48.0 The [facility] ClinicComment on above:Performed By: #### PT, PTT #### [facility] [address] [place] [address] Dr. Idania RoldanHemoglobin (Bld) [Mass/Vol]9.9 g/dLCritically low12.0-16.0The [facility] ClinicComment on above:Performed By: #### PT, PTT #### [facility] [address] [place] [address] Dr. Idania Benson #0.01 10e3/ulNormal0.00-0.03The [facility] ClinicComment on above:Performed By: #### PT, PTT #### [facility] [address] [place] [address] Dr. Idania Benson %0.1 %Normal0.0-0.5The [facility] ClinicComment on above: Performed By: #### PT, PTT #### [facility] [address] [place] [address] Dr. Idania Castro #2.7 103/ulNormal1.2-3.8The [facility] ClinicComcorewell health [facility] hospital on above:Performed By: #### PT, PTT #### [facility] [address] [place] [address] Dr. Idania Felixhocytes/100 WBC (Bld)35.7 %Czozdg38.5-60.0The [facility] ClinicComment on above:Performed By: #### PT, PTT #### [facility] [address] [place] [address] Dr. Idania CisseUAL DIFF REQNONormalThe [facility] ClinicComment on above: Performed By: #### PT, PTT #### [facility] [address] [place] [address] Dr. Idania Sofia (RBC) [Entitic mass]24.8 pgCritically low26.7-34.0The [facility] ClinicComment on above:Performed By: #### PT, PTT #### [facility] [address] [place] [address] Dr. Idania Christensen (RBC) [Mass/Vol]30.8 g/vRYouquk76.9-35.2The [facility] ClinicComment on above:Performed By: #### PT, PTT #### [facility] [address] [place] [address] Dr. Idania Miramontes (RBC) [Entitic vol]80.5 fLCritically low81.0-99.0The [facility] ClinicComment on above:Performed By: #### PT, PTT #### [facility] [address] [place] [address] Dr. Idania Salazar #0.5 103/ulNormal0.3-0.8The [facility] ClinicComment on above:Performed By: #### PT, PTT #### [facility] [address] [place] [address] Dr. Idania Chavezocytes/100 WBC (Bld)6.1 %Normal1.7-12.0[facility] Comment on above:Performed By: #### PT, PTT #### [facility] [address] [place] [address] Dr. Idania Santa #4.2 103/ulNormal1.4-6.5The [facility] ClinicComment on above:Performed By: #### PT, PTT #### [facility] [address] [place] [address] Dr. Idania Herronophils/100 WBC (Bld)56.4 %Ayarpw57.0-75.0The [facility] ClinicComment on above:Performed By: #### PT, PTT #### [facility] [address] [place] [address] Dr. Idania Moralet mean volume (Bld) [Entitic vol]9.4 fLCritically low 9.5-13.5The [facility] ClinicComment on above:Performed By: #### PT, PTT #### [facility] [address] [address] [address] Idania RoldanPLT296 103/opRywgdb410-796Lnc [facility] ClinicComment on above: Performed By: #### PT, PTT #### [facility] [address] [address] [address] Idania RoldanRBC3.99 106/ulCritically low4.20-5.40The [facility] ClinicComment on above:Performed By: #### PT, PTT #### [facility] [address] [address] [address] Idania RoldanWBC7.5 103/ulNormal4.0-11.0The [facility] ClinicComment on above: Performed By: #### PT, PTT #### [facility] [address] [address] [address] Idania RoldanCT ABD/PELV W CONon [id number] ABD/PELV W CONEXAMINATION: CT ABD/PELV W CON [...] Electronically authenticated by: RUSSELL DUFF Date: 2022-08-21 12:35[facility] URINE PROFILEon [id number] Ql (U)Unable to perform testing due to color interference.AbnormalNEGATIVEPeoples Hospital HospitalComment on above:Performed By: #### BMP, LIPA, YVETTE, LIVER #### [facility] [address] [address] [address] Idania Sanders (U)TURBIDAbnormalCLEARThAvita Health System Bucyrus HospitalComment on above:Performed By: #### BMP, LIPA, YVETTE, LIVER #### [facility] [address] [place] [address] Dr. Idania Wagner (U)REDAbnormalYELLOWCleveland ClinicComment on above: Performed By: #### BMP, LIPA, YVETTE, LIVER #### [facility] [address] [place] [address] Dr. Idania Phelps micrscopic examination will be performed if indicated. NormalThe Calhoun HospitalComment on above:Performed By: #### BMP, LIPA, YVETTE, LIVER #### [facility] [address] [address] [address] Idania Naranjo Ql (U)Unable to perform testing due to color interference.AbnormalNEGATIVEPeoples Hospital HospitalComment on above:Performed By: #### BMP, LIPA, YVETTE, LIVER #### [facility] [address] [address] [address] Idania RoldanHemoglobin Ql (U)Unable to perform testing due to color interference.AbnormalNEGATIVEPeoples Hospital HospitalComment on above:Performed By: #### BMP, LIPA, YVETTE, LIVER #### [facility] [address] [address] [address] Idania Gómez Ql (U)Unable to perform testing due to color interference.AbnormalNEGATIVEPeoples Hospital HospitalComment on above:Performed By: #### BMP, LIPA, YVETTE, LIVER #### [facility] [address] [address] [address] Idania Marks to perform testing due to color interference. AbnormalNEGATIVEThe Calhoun HospitalComment on above:Performed By: #### BMP, LIPA, YVETTE, LIVER #### [facility] [address] [address] [address] Idania Galicia Ql (U)Unable to perform testing due to color interference.AbnormalNEGATIVEThe Calhoun HospitalComment on above:Performed By: #### BMP, LIPA, YVETTE, LIVER #### [facility] [address] [address] [address] Idania Lino to perform testing due to color interference.Abnormal5-9 The [facility]oun HospitalComment on above:Performed By: #### BMP, LIPA, YVETTE, LIVER #### [facility] [address] [address] [address] Idania RoldanSPEC GRAVITY1.756Qzsvao9.005-<=1.025The Cal[facility]oun HospitalComment on above:Performed By: #### BMP, LIPA, YVETTE, LIVER #### [facility] [address] [address] [address] Idania Bee PROTEINNorris to perform testing due to color interference. NormalNEGATIVE/ TRACEThe Calhoun HospitalComment on above:Performed By: #### BMP, LIPA, YVETTE, LIVER #### [facility] [address] [address] [address] Idania Ventura MICRO INDINDICATEDNormalThe Calhoun HospitalComment on above: Performed By: #### BMP, LIPA, YVETTE, LIVER #### [facility] [address] [address] [address] Idania HancockBILINOGENNorris to perform testing due to color interference. Normal0.2 - 1.0The Cal[facility]oun HospitalComment on above:Performed By: #### BMP, LIPA, YVETTE, LIVER #### [facility] [address] [address] [address] Idania Maciel 14(COMP METB)on [id number] [Mass/Vol]4.2 g/dLNormal 3.4-5.0The [facility] ClinicComment on above:Performed By: #### PT, PTT #### [facility] [address] [address] [address] Idania RoldanAlbumin/Globulin [Mass ratio]1.0 {ratio}NormalThe [facility] ClinicComcorewell health butterworth hospital on above:Performed By: #### PT, PTT #### [facility] [address] [address] [address] Idania Desai [Catalytic activity/Vol]91 U/JVtemcj42-801Wop [facility] ClinicComment on above:Performed By: #### PT, PTT #### [facility] [address] [address] [address] Idania Arellano [Catalytic activity/Vol]15 U/KXodlps13-20Nqs [facility] ClinicComment on above:Performed By: #### PT, PTT #### [facility] [address] [address] [address] Idania Peraltaon gap [Moles/Vol]9.6 mmol/LNormalThe [facility] ClinicComment on above:Performed By: #### PT, PTT #### [facility] [address] [address] [address] Idania Levin [Catalytic activity/Vol]14 U/LCritically vsj38-61Pfc [facility] on above:Performed By: #### PT, PTT #### [facility] [address] [address] [address] Idania RoldanBilirubin [Mass/Vol]0.2 mg/dLNormal0.2-1.0The [facility] Comment on above:Performed By: #### PT, PTT #### [facility] [address] [address] [address] Idania RoldanCalcium [Mass/Vol]9.2 mg/dLNormal8.5-10.1The [facility] Comment on above:Performed By: #### PT, PTT #### [facility] [address] [address] [address] Idania RoldanChloride [Moles/Vol]103 mmol/BMpegbc32-090Dcd [facility] Comment on above:Performed By: #### PT, PTT #### [facility] [address] [place] [address] Dr. Idania RoldanCO2 [Moles/Vol]31.2 mmol/DZevsru70.0-32.0The [facility] Comment on above:Performed By: #### PT, PTT #### [facility] [address] [place] [address] Dr. Idania RoldanCreatinine [Mass/Vol]0.76 mg/dLNormal0.55-1.02The [facility] ClinicComment on above:Performed By: #### PT, PTT #### [facility] [address] [place] [address] Dr. Idania LarkinGFR-AF MONTENEGRIN>60Normal>=60The [facility] ClinicComment on above:Performed By: #### PT, PTT #### [facility] [address] [place] [address] Dr. Idania LarkinGFR-NON AF MONTENEGRIN>60Normal>=60The [facility] ClinicComment on above:Performed By: #### PT, PTT #### [facility] [address] [place] [address] Dr. Idania RoldanGlobulin (S) [Mass/Vol]4.2 g/dLNormalThe [facility] ClinicComment on above:Performed By: #### PT, PTT #### [facility] [address] [place] [address] Dr. Idania RoldanGlucose [Mass/Vol]107 mg/dLCritically wemr13-461Fqj [facility] ClinicComment on above:Performed By: #### PT, PTT #### [facility] [address] [place] [address] Dr. Idania RoldanPotassium [Moles/Vol]3.8 mmol/LNormal3.5-5.1The [facility] Comment on above:Performed By: #### PT, PTT #### [facility] [address] [place] [address] Dr. Idania RoldnaProtein [Mass/Vol]8.4 g/dLCritically high6.4-8.2The [facility] ClinicComment on above:Performed By: #### PT, PTT #### [facility] [address] [address] [address] Idania Fernandezum [Moles/Vol]140 mmol/MImswrt835-892Kem [facility] Comment on above:Performed By: #### PT, PTT #### [facility] [address] [place] [address] Dr. Idania Licona nitrogen [Mass/Vol]12.0 mg/dLNormal7.0-18.0The [facility] ClinicComment on above:Performed By: #### PT, PTT #### [facility] [address] [place] [address] Dr. Idaina Licona nitrogen/Creatinine [Mass ratio]15.8 mg/mgNoTriHealthComment on above:Performed By: #### PT, PTT #### [facility] [address] [place] [address] Dr. Idania Mcintosh MICROSCOPIC ONLYon [id number] SEENNormalNONE SEENCleveland ClinicComment on above:Performed By: #### BMP, LIPA, YVETTE, LIVER #### [facility] [address] [place] [address] Dr. Idania Kinney identified Cx Nom (U)NOT INDICATEDNoTriHealthComment on above:Performed By: #### BMP, LIPA, YVETTE, LIVER #### [facility] [address] [place] [address] Dr. Idania PollackE SEENNormalNONE SEENCleveland ClinicComment on above:Performed By: #### BMP, LIPA, YVETTE, LIVER #### [facility] [address] [place] [address] Dr. Idania Baraajs LM Nom (Urine sed)NONE SEENNormalNONE SEENCleveland ClinicComment on above:Performed By: #### BMP, LIPA, YVETTE, LIVER #### [facility] [address] [place] [address] Dr. Idania Gunterthelial cells LM Ql (Urine sed)RARENormalNONE SEEN /RAREThe [facility] ClinicComment on above:Performed By: #### BMP, LIPA, YVETTE, LIVER #### [facility] [address] [place] [address] Dr. Idania RoldanMUCOUSNONE SEENNormalNONE SEENThe [facility] ClinicComment on above:Performed By: #### BMP, LIPA, YVETTE, LIVER #### [facility] [address] [place] [address] Dr. Idania Stanton (U) [#/Vol]/uLAbnormal0-2The [facility] ClinicComment on above:Performed By: #### BMP, LIPA, YVETTE, LIVER #### [facility] [address] [place] [address] Dr. Idania RoldanWBC2-5AbnormalNONE SEENCleveland ClinicComment on above: Performed By: #### BMP, LIPA, YVETTE, LIVER #### [facility] [address] [place] [address] Dr. Idania White AUTO DIFFon [id number] #0.0 103/ulNormal0.0-0.1The [facility] ClinicComment on above:Performed By: #### PT, PTT #### [facility] [address] [place] [address] Dr. Idania RoldanBasophils/100 WBC (Bld)0.4 %Normal0.2-2.0[facility] Comment on above:Performed By: #### PT, PTT #### [facility] [address] [place] [address] Dr. Idania To #0.1 103/ulNormal0.0-0.7The [facility] on above: Performed By: #### PT, PTT #### [facility] [address] [place] [address] Dr. Idania Larkinosinophils/100 WBC (Bld)2.0 %Normal0.9-7.0The [facility] Comment on above:Performed By: #### PT, PTT #### [facility] [address] [place] [address] Dr. Idania Wilsonthrocyte distribution width (RBC) [Ratio]14.8 %Rhvyoy41.0-15.0 [facility] Hospitalment on above:Performed By: #### PT, PTT #### [facility] [address] [place] [address] Dr. Idania RoldanHematocrit (Bld) [Volume fraction]31.5 %Critically low36.0-48.0 The [facility] ClinicComment on above:Performed By: #### PT, PTT #### [facility] [address] [place] [address] Dr. Idania RoldanHemoglobin (Bld) [Mass/Vol]9.5 g/dLCritically low12.0-16.0The [facility] Hospitalment on above:Performed By: #### PT, PTT #### [facility] [address] [place] [address] Dr. Idania Benson #0.01 10e3/ulNormal0.00-0.03The [facility] Hospitalment on above:Performed By: #### PT, PTT #### [facility] [address] [place] [address] Dr. Idania Benson %0.2 %Normal0.0-0.5The [facility] Hospitalment on above: Performed By: #### PT, PTT #### [facility] [address] [place] [address] Dr. Idania Castro #1.4 103/ulNormal1.2-3.8The [facility] ClinicComcorewell health butterworth hospital on above:Performed By: #### PT, PTT #### [facility] [address] [place] [address] Dr. Idania Felixhocytes/100 WBC (Bld)29.9 %Mclyux58.5-60.0[facility] Hospitalment on above:Performed By: #### PT, PTT #### [facility] [address] [place] [address] Dr. Idania Pratt DIFF REQNONormalThe [facility] ClinicComment on above: Performed By: #### PT, PTT #### [facility] [address] [place] [address] Dr. Idania Christensen (RBC) [Entitic mass]24.4 pgCritically low26.7-34.0The [facility] ClinicComment on above:Performed By: #### PT, PTT #### [facility] [address] [place] [address] Dr. Idania Christensen (RBC) [Mass/Vol]30.2 g/lACaruij10.9-35.2The [facility] ClinicComment on above:Performed By: #### PT, PTT #### [facility] [address] [place] [address] Dr. Idania Christensen (RBC) [Entitic vol]80.8 fLCritically low81.0-99.0The [facility] ClinicComment on above:Performed By: #### PT, PTT #### [facility] [address] [place] [address] Dr. Idania Salazar #0.2 103/ulCritically low0.3-0.8The [facility] ClinicComment on above:Performed By: #### PT, PTT #### [facility] [address] [place] [address] Dr. Idania Chavezocytes/100 WBC (Bld)5.2 %Normal1.7-12.0The [facility] Comment on above:Performed By: #### PT, PTT #### [facility] [address] [place] [address] Dr. Idania Santa #2.9 103/ulNormal1.4-6.5The [facility] ClinicComment on above:Performed By: #### PT, PTT #### [facility] [address] [place] [address] Dr. Idania Lottutrophils/100 WBC (Bld)62.3 %Wtcyeh15.0-75.0The [facility] ClinicComment on above:Performed By: #### PT, PTT #### [facility] [address] [place] [address] Dr. Idania Moralet mean volume (Bld) [Entitic vol]8.6 fLCritically low 9.5-13.5The [facility] ClinicComment on above:Performed By: #### PT, PTT #### [facility] [address] [place] [address] Dr. Idania RoldanPLT269 103/mpZtgukg600-570Gnr [facility] ClinicComment on above: Performed By: #### PT, PTT #### [facility] [address] [place] [address] Dr. Idania RoldanRBC3.90 106/ulCritically low4.20-5.40The [facility] ClinicComment on above:Performed By: #### PT, PTT #### [facility] [address] [place] [address] Dr. Idania RoldanWBC4.6 103/ulNormal4.0-11.0The [facility] ClinicComment on above: Performed By: #### PT, PTT #### [facility] [address] [place] [address] Dr. Idania RoldanPROF CHEM 8 (BAS METB)on [id number] gap [Moles/Vol]9.0 mmol/LNormalThe [facility] ClinicComment on above:Performed By: #### BMP, LIPA, YVETTE, LIVER #### [facility] [address] [place] [address] Dr. Idania RoldanCalcium [Mass/Vol]9.1 mg/dLNormal8.5-10.1The [facility] Comment on above:Performed By: #### BMP, LIPA, YVETTE, LIVER #### [facility] [address] [place] [address] Dr. Idania RoldanChloride [Moles/Vol]104 mmol/XBpzpfw25-288PgtC[facility] Comment on above:Performed By: #### BMP, LIPA, YVETTE, LIVER #### [facility] [address] [place] [address] Dr. Idania RoldanCO2 [Moles/Vol]31.5 mmol/NRgxbuc24.0-32.0[facility] Comment on above:Performed By: #### BMP, LIPA, YVETTE, LIVER #### [facility] [address] [address] [address] Idania RoldanCreatinine [Mass/Vol]0.59 mg/dLNormal0.55-1.02The [facility] ClinicComment on above:Performed By: #### BMP, LIPA, YVETTE, LIVER #### [facility] [address] [address] [address] Emerson ChangEGFR-AF MONTENEGRIN>60Normal>=60The [facility] ClinicComment on above:Performed By: #### BMP, LIPA, YVETTE, LIVER #### [facility] [address] [address] [address] Idania LarkinGFR-NON AF MONTENEGRIN>60Normal>=60The [facility] ClinicComment on above:Performed By: #### BMP, LIPA, YVETTE, LIVER #### [facility] [address] [address] [address] Idania RoldanGlucose [Mass/Vol]90 mg/lVIapbrq02-035TnlC[facility] Comment on above:Performed By: #### BMP, LIPA, YVETTE, LIVER #### [facility] [address] [address] [address] Idania RoldanPotassium [Moles/Vol]4.5 mmol/LNormal3.5-5.1[facility] Comment on above:Performed By: #### BMP, LIPA, YVETTE, LIVER #### [facility] [address] [address] [address] Idania RoldanSodium [Moles/Vol]140 mmol/IJgfurk311-701Tcu [facility] Comment on above:Performed By: #### BMP, LIPA, YVETTE, LIVER #### [facility] [address] [address] [address] Idania RoldanUrea nitrogen [Mass/Vol]8.0 mg/dLNormal7.0-18.0The [facility] ClinicComment on above:Performed By: #### BMP, LIPA, YVETTE, LIVER #### [facility] [address] [address] [address] Idania RoldanUrea nitrogen/Creatinine [Mass ratio]13.6 mg/mgNoTriHealthComment on above:Performed By: #### BMP, LIPA, YVETTE, LIVER #### [facility] [address] [place] [address] Dr. Idania Gill [id number] Coag (PPP) [Relative time]0.93 {INR} NormalCleveland ClinicComcorewell health butterworth hospital on above:Performed By: #### BMP, LIPA, YVETTE, LIVER #### [facility] [address] [place] [address] Dr. Idania Helms GUIDELINESSEE BELOWMarion HospitalComment on above:Result Comment: DESIRED INR: 2.0 - 3.0 CONDITIONS NOT LISTED BELOW 2.5 - 3.5 FOR PROSTHETIC HEART VALVE REPLACEMENT 2.5 - 3.5 RECURRENT THROMBOSIS Performed By: #### BMP, LIPA, YVETTE, LIVER #### [facility] [address] [place] [address] Dr. Idania Lee Coag (PPP) [Time]10.1 sNormal9.0-11.6ThAvita Health [facility] Comment on above:Performed By: #### BMP, LIPA, YVETTE, LIVER #### [facility] [address] [place] [address] Dr. Idania Vargas [id number] Coag (Bld) [Time]28.1 pZxswgj19.3-36.2C[facility] ClinicComment on above:Performed By: #### BMP, LIPA, YVETTE, LIVER #### [facility] [address] [place] [address] Dr. Idania Vasquezd-19 PCR ([facility])on [id number]-CoV-2 (COVID-19) RNA MAMIE+probe Ql (Unsp spec)Not detectedNormalNOT DETECTEDCleveland Clinic Comment on above:Result Comment: This test is not yet approved or cleared by the [place] FDA. When there are no FDA-approved or cleared tests available, and other criteria are met, FDA can make tests available under an emergency access mechanism called an Emergency Use Authorization (EUA). The EUA for this test is supported by the [place] of Health and Human Service's (HHS's) declaration [...] with SARS-CoV-2.Performed By: #### PT, PTT #### [facility] [address] [place] [address] Dr. Idania White AUTO DIFFon [id number] #0.0 103/ulNormal0.0-0.1C[facility] ClinicComment on above:Performed By: #### PT, PTT #### [facility] [address] [place] [address] Dr. Idania RoldanBasophils/100 WBC (Bld)0.2 %Normal0.2-2.0[facility] Comment on above:Performed By: #### PT, PTT #### [facility] [address] [place] [address] Dr. dIania To #0.1 103/ulNormal0.0-0.7The [facility] ClinicComment on above: Performed By: #### PT, PTT #### [facility] [address] [place] [address] Dr. Idania Larkinosinophils/100 WBC (Bld)1.3 %Normal0.9-7.0[facility] Comment on above:Performed By: #### PT, PTT #### [facility] [address] [place] [address] Dr. Yilan ChangErythrocyte distribution width (RBC) [Ratio]16.4 %Critically high 11.0-15.0The [facility] Hospitalment on above:Performed By: #### PT, PTT #### [facility] [address] [place] [address] Dr. Idania RoldanHematocrit (Bld) [Volume fraction]33.2 %Critically low36.0-48.0 The [facility] ClinicComment on above:Performed By: #### PT, PTT #### [facility] [address] [place] [address] Dr. Idania RoldanHemoglobin (Bld) [Mass/Vol]10.3 g/dLCritically low12.0-16.0The [facility] ClinicComcorewell health [facility]worth hospital on above:Performed By: #### PT, PTT #### [facility] [address] [place] [address] Dr. Idania Benson #0.01 10e3/ulNormal0.00-0.03The [facility] on above:Performed By: #### PT, PTT #### [facility] [address] [place] [address] Dr. Idania Benson %0.2 %Normal0.0-0.5The [facility] on above: Performed By: #### PT, PTT #### [facility] [address] [place] [address] Dr. Idania FelixH #1.8 103/ulNormal1.2-3.8The [facility] ClinicComcorewell health [facility]worth hospital on above:Performed By: #### PT, PTT #### [facility] [address] [place] [address] Dr. Idania Shanemphocytes/100 WBC (Bld)38.8 %Ogsqud54.5-60.0The [facility] ClinicComcorewell health [facility]worth hospital on above:Performed By: #### PT, PTT #### [facility] [address] [place] [address] Dr. Idania CisseUAL DIFF REQNONormalThe [facility] ClinicComment on above: Performed By: #### PT, PTT #### [facility] [address] [place] [address] Dr. Idania Christensen (RBC) [Entitic mass]25.9 pgCritically low26.7-34.0The [facility] ClinicComment on above:Performed By: #### PT, PTT #### [facility] [address] [place] [address] Dr. Idania Christensen (RBC) [Mass/Vol]31.0 g/nUClwpql53.9-35.2The [facility] HospitalComment on above:Performed By: #### PT, PTT #### [facility] [address] [place] [address] Dr. Idania Christensen (RBC) [Entitic vol]83.4 rWFikmzc83.0-99.0The [facility] ClinicComment on above:Performed By: #### PT, PTT #### [facility] [address] [place] [address] Dr. Idania Salazar #0.3 103/ulNormal0.3-0.8The [facility] ClinicComment on above:Performed By: #### PT, PTT #### [facility] [address] [place] [address] Dr. Idania Chavezocytes/100 WBC (Bld)6.1 %Normal1.7-12.0The [facility] Comment on above:Performed By: #### PT, PTT #### [facility] [address] [place] [address] Dr. Idania Santa #2.5 103/ulNormal1.4-6.5The [facility] ClinicComment on above:Performed By: #### PT, PTT #### [facility] [address] [place] [address] Dr. Idania Lottutrophils/100 WBC (Bld)53.4 %Xjanwh49.0-75.0The [facility] ClinicComment on above:Performed By: #### PT, PTT #### [facility] [address] [place] [address] Dr. Idania Moralet mean volume (Bld) [Entitic vol]10.1 fLNormal9.5-13.5The [facility] ClinicComment on above:Performed By: #### PT, PTT #### [facility] [address] [place] [address] Dr. Idania RoldanPLT239 103/rwRgmeuc139-732Tkp [facility] ClinicComment on above: Performed By: #### PT, PTT #### [facility] [address] [place] [address] Dr. Idania RoldanRBC3.98 106/ulCritically low4.20-5.40The [facility] ClinicComment on above:Performed By: #### PT, PTT #### [facility] [address] [place] [address] Dr. Idania RoldanWBC4.6 103/ulNormal4.0-11.0The [facility] ClinicComment on above: Performed By: #### PT, PTT #### [facility] [address] [place] [address] Dr. Idania RoldanPROF CHEM 8 (BAS METB)on 89-94-6124Pwcnm gap [Moles/Vol]8.4 mmol/LNormalThe [facility] ClinicComment on above:Performed By: #### BMP #### [facility] [address] [place] [address] Dr. Idania RoldanCalcium [Mass/Vol]9.3 mg/dLNormal8.5-10.1The [facility] Comment on above:Performed By: #### BMP #### [facility] [address] [place] [address] Dr. Idania RoldanChloride [Moles/Vol]103 mmol/ZKqmgfv03-673Dff [facility] Comment on above:Performed By: #### BMP #### [facility] [address] [place] [address] Dr. Idania RoldanCO2 [Moles/Vol]32.9 mmol/LCritically high21.0-32.0The [facility] ClinicComment on above:Performed By: #### BMP #### [facility] [address] [place] [address] Dr. Idania RoldanCreatinine [Mass/Vol]0.70 mg/dLNormal0.55-1.02The [facility] ClinicComment on above:Performed By: #### BMP #### [facility] [address] [place] [address] Dr. Idania LarkinGFR-AF MONTENEGRIN>60Normal>=60The [facility] ClinicComment on above:Performed By: #### BMP #### [facility] [address] [place] [address] Dr. Idania LarkinGFR-NON AF MONTENEGRIN>60Normal>=60The [facility] ClinicComment on above:Performed By: #### BMP #### [facility] [address] [place] [address] Dr. Idania RoldanGlucose [Mass/Vol]73 mg/dLCritically xhz92-859Tyb [facility] ClinicComment on above:Performed By: #### BMP #### [facility] [address] [place] [address] Dr. Idania RoldanPotassium [Moles/Vol]4.3 mmol/LNormal3.5-5.1The [facility] Comment on above:Performed By: #### BMP #### [facility] [address] [place] [address] Dr. Idania RoldanSodium [Moles/Vol]140 mmol/QJzgzsq759-494Mdv [facility] Comment on above:Performed By: #### BMP #### [facility] [address] [place] [address] Dr. Idania RoldanUrea nitrogen [Mass/Vol]16.0 mg/dLNormal7.0-18.0The [facility] ClinicComment on above:Performed By: #### BMP #### [facility] [address] [place] [address] Dr. Idania Licona nitrogen/Creatinine [Mass ratio]22.9 mg/mgNormalThe [facility] ClinicComment on above:Performed By: #### BMP #### [facility] [address] [place] [address] Dr. Idania MonteiroIMEluis [id number] Coag (PPP) [Relative time]1.00 {INR} NormalCleveland ClinicComment on above:Performed By: #### PT, PTT #### [facility] [address] [place] [address] Dr. Idania Helms GUIDELINESSEE BELOWNormalThAvita Health System Bucyrus HospitalComment on above:Result Comment: DESIRED INR: 2.0 - 3.0 CONDITIONS NOT LISTED BELOW 2.5 - 3.5 FOR PROSTHETIC HEART VALVE REPLACEMENT 2.5 - 3.5 RECURRENT THROMBOSIS Performed By: #### PT, PTT #### [facility] [address] [place] [address] Dr. Idania Lee Coag (PPP) [Time]10.8 sNormal9.0-11.6[facility] Comment on above:Performed By: #### PT, PTT #### [facility] [address] [place] [address] Dr. Idania Vargas 60-45-3348tIZW Coag (Bld) [Time]29.3 fJrckvk94.3-36.2Cleveland ClinicComment on above:Performed By: #### PT, PTT #### [facility] [address] [place] [address] Dr. Idania RoldanOperative Reporton [id number] ReportMR#: [id number] I [facility] Pt. Name: Elvi Moore Room #: [id number] Discharge 06/01/2022 Date: Birthdate: 1980 OPERATIVE REPORT DATE OF SURGERY: 06/01/2022 SURGEON: Kevin Lane M.D. PLATE MAKER: Duy Cavazos ANESTHESIA: General anesthesia. ESTIMATED BLOOD [...] arthrotomy was closed with soft #2 interrupted dkckbt-qt-pwdue suture. The remainder of the incision closed in layered fashion. Sterile dressing applied. At the conclusion of the case, all sponge and needle counts correct. I was present for the critical portions of this case. Electronically Signed by: Kevin Lane M.D. 06/09/2022 07:[address] M.D. Date Dict: 06/03/2022/07:15 A/Kevin Lane M.D. Date Trans: 06/03/2022 08:09 Christine/taylor DN_JN:[id number] cc: Arleth Acharya M.D. [address], [facility] [id number] Health Fairfield Hospital*ANAEROBIC CULTUREon 06-01-2022*ANAEROBIC CULTUREClinical Report: (D) Specimen/Source: FLUID/INTRAOP SPEC Collected: 06/01/2022 14:08 Status: Final Last Updated: 06/06/2022 06:35 (1) 1. LEFT KNEE JOINT FLUID CULT RES (Final) No Anaerobes Isolated 5 DaysNoEast Liverpool City HospitalComment on above:Order Comment: 1. LEFT KNEE JOINT FLUIDPerformed By: #### [id number] ####[place] [id number] KATHERIN DAO.[address] *ANAEROBIC CULTUREClinical Report: (D) Specimen/Source: TISSUE/INTRAOP SPEC Collected: 06/01/2022 14:08 Status: Final Last Updated: 06/06/2022 06:35 (1) 2. LEFT KNEE MEDIAL SYNOVIUM CULT RES (Final) No Anaerobes Isolated 5 DaysNoEast Liverpool City HospitalComment on above:Order Comment: 2. LEFT KNEE MEDIAL SYNOVIUMPerformed By: #### [id number] #### [facility] [address]*ANAEROBIC CULTUREClinical Report: (D) Specimen/Source: TISSUE/INTRAOP SPEC Collected: 06/01/2022 14:08 Status: Final Last Updated: 06/06/2022 06:35 (1) 3. LEFT KNEE LATERAL SYNOVIUM CULT RES (Final) No Anaerobes Isolated 5 DaysMercy Health Fairfield HospitalComment on above:Order Comment: 3. LEFT KNEE LATERAL SYNOVIUMPerformed By: #### [id number] #### [facility] [address]*BODY FLUID CULTUREon 06-01-2022*BODY FLUID CULTUREClinical Report: (D) Specimen/Source: FLUID/INTRAOP SPEC Collected: 06/01/2022 14:08 Status: Final Last Updated: 06/06/2022 06:39 (1) 1. LEFT KNEE JOINT FLUID GRAM (Final) Quantity Not Sufficient CULT RES (Final) No Growth Day 5Mer[facility] HospitalComment on above: Order Comment: 1. LEFT KNEE JOINT FLUIDPerformed By: #### [id number] ####[facility] [address]*TISSUE CULTURE on 06-01-2022*TISSUE CULTUREClinical Report: (D) Specimen/Source: TISSUE/INTRAOP SPEC Collected: 06/01/2022 14:08 Status: Final Last Updated: 06/06/2022 06:40 (1) 2. LEFT KNEE MEDIAL SYNOVIUM GRAM (Final) Many Polys No Bacteria Seen CULT RES (Final) No Growth Day 5Mer[facility] HospitalComment on above: Order Comment: 2. LEFT KNEE MEDIAL SYNOVIUMPerformed By: #### [id number] ####[facility] [address] *TISSUE CULTUREClinical Report: (D) Specimen/Source: TISSUE/INTRAOP SPEC Collected: 06/01/2022 14:08 Status: Final Last Updated: 06/06/2022 06:39 (1) 3. LEFT KNEE LATERAL SYNOVIUM GRAM (Final) Many Polys No Bacteria Seen CULT RES (Final) No Growth Day 5NoEast Liverpool City HospitalComment on above: Order Comment: 3. LEFT KNEE LATERAL SYNOVIUMPerformed By: #### [id number] ####[address] POC GLUCOSE LABon [id number] [Mass/Vol]86 mg/eUKbcsml68-346FnzProtestant Deaconess HospitalComment on above:Performed By: #### [id number] #### [facility] [address] [place] [address], [facility] L[facility] VEGASPORTABLE KNEE LEFT 2 Son [id number] KNEE LEFT 2 SUniThe [facility] Department of Radiology [address] [place] [id number] Patient Name: ELVI MOORE : 1980 [...] planned Electronically signed: Yvette Andrade. Transcribed by: [email or web address], User Resident: Electronically Signed by: YVETTE ANDRADE @ 06/02/2022 08:53 AMNormalThe [facility] Memorial HospitalComment on above:Order Comment: Hardware Evaluation, in PACU*MRSA/MSSA DNA NASALon 05-26-2022*MRSA/MSSA DNA NASALClinical Report: (D) Specimen: NASAL SWAB Collected: 05/26/2022 15:23 Status: Final Last Updated: 05/27/2022 13:43 MSSA DNA (Final) Negative MRSA DNA (Final) NegativeNoEast Liverpool City HospitalComment on above:Performed By: #### [id number] #### [facility] [address] [facility] [place] [address], USAC REACTIVE PROTEINon [id number] [Mass/Vol]1.3 mg/LNormal 0.0-7.0The [facility] HospitalComment on above:Performed By: #### [id number] #### [facility] [address] [facility] [place] [address], USACBC W/DIFFon 26-99-1018SPY IMM GRANS0.0 10*3/uLNormal 0.0-0.2The [facility] HospitalComment on above:Performed By: #### [id number] #### [facility] [address] [facility] [place] [address], USAABS NEUTROPHILS2.5 10*3/uLNormal1.6-7.6The [facility] HospitalComment on above:Performed By: #### [id number] #### [facility] [address] [facility] [place] [address], USABasophils (Bld) [#/Vol]0.0 10*3/uLNormal0.0-0.2The [facility] HospitalComment on above:Performed By: #### [id number] #### [facility] [address] [facility] [place] [address], USABasophils/100 WBC (Bld)0.3 %Normal0.0-1.0The [facility] HospitalComment on above:Performed By: #### [id number] #### [facility] [address] [facility] [place] [address], USAEosinophils (Bld) [#/Vol]0.1 10*3/uLNormal0.0-0.5The [facility] HospitalComment on above:Performed By: #### [id number] #### [facility] [address] [facility] [place] [address], USAEosinophils/100 WBC (Bld)1.5 %Normal0.0-6.0The [facility] HospitalComment on above:Performed By: #### [id number] #### [facility] [address] [facility] [place] [address], USAErythrocyte distribution width (RBC) [Ratio]15.9 %High 11.5-15.0The [facility] HospitalComment on above:Performed By: #### [id number] #### [facility] [address] [facility] [place] [address], USAHematocrit (Bld) [Volume fraction]35.0 %Low36.0-45.0The [facility] HospitalComment on above:Performed By: #### [id number] #### [facility] [address] [place] [address], USAHemoglobin (Bld) [Mass/Vol]10.6 g/dLLow12.0-15.0The [facility] HospitalComment on above:Performed By: #### [id number] #### [facility] [address] [place] [address], USAIMMATURE GRANS0.2 %Normal0.0-1.0The [facility] HospitalComment on above:Performed By: #### [id number] #### [facility] [address] [facility] [place] [address], USALymphocytes (Bld) [#/Vol]2.8 10*3/uLNormal1.2-4.0The [facility] HospitalComment on above:Performed By: #### [id number] #### [facility] [address] [place] [address], USALymphocytes/100 WBC (Bld)48.0 %High20.0-45.0The [facility] HospitalComment on above:Performed By: #### [id number] #### [facility] [address] [place] [address], [facility] INSTITUTE AT LAS VEGASMCH (RBC) [Entitic mass]24.5 pgLow27.0-33.0The [facility] HospitalComment on above:Performed By: #### [id number] #### [facility] [address] [facility] [address], USAMCHC (RBC) [Mass/Vol]30.3 g/dLLow32.0-35.0The [facility] HospitalComment on above:Performed By: #### [id number] #### [facility] [address] [place] [address], USAMCV (RBC) [Entitic vol]81.0 fLLow82.0-98.0The [facility] HospitalComment on above:Performed By: #### [id number] #### [facility] [address] [place] [address], USAMonocytes (Bld) [#/Vol]0.4 10*3/uLNormal0.1-1.0The [facility] HospitalComment on above:Performed By: #### [id number] #### [facility] [address] [place] [address], USAMONOS6.8 %Normal5.0-12.0The [facility] HospitalComment on above:Performed By: #### [id number] #### [facility] [address] [place] [address], USANeutrophils/100 WBC (Bld)43.2 %Osgpbq50.0-72.0The [facility] HospitalComment on above:Performed By: #### [id number] #### [facility] [address] [place] [address], USANucleated RBC/100 WBC (Bld) [Ratio]0 %Normal0-0The [facility] HospitalComment on above:Performed By: #### [id number] #### [facility] [address] [place] [address], USAPLAT [id number] 10*3/eVSyedyw263-439Sku [facility] HospitalComment on above:Performed By: #### [id number] #### [facility] [address] [place] [address], USARBC (Bld) [#/Vol]4.32 10*6/uLNormal3.80-5.00The [facility] HospitalComment on above:Performed By: #### [id number] #### [facility] [address] [place] [address], USAWBC (Bld) [#/Vol]5.87 10*3/uLNormal4.00-10.60The [facility] HospitalComment on above:Performed By: #### [id number] #### [facility] [address] [place] [address], USAHEMOGLOBIN A1Con 48-98-9416Vxejsmm [Moles/Vol]100 mmol/L NormalThe [facility] HospitalComment on above:Performed By: #### [id number] #### [facility] [address] [place] [address], VXFWoL2c (Bld) [Mass fraction]5.1 %Normal4.0-6.0The [facility] HospitalComment on above:Performed By: #### [id number] #### [facility] [address] [place] [address], USASEDIMENTATION RATEon 61-56-7719VPZ RATE17 mm/hrNormal0-20 The [facility] HospitalComment on above:Performed By: #### [id number] #### [facility] [address] [place] [address], USAUS KIDNEYS BLADDERon 16-29-2340IA KIDNEYS BLADDER EXAMINATION: US KIDNEYS BLADDER HISTORY: [...] Electronically authenticated by: RUSSELL DUFF Date: 2022-05-02 16:18NormalThEast [facility] Hospital AUTO DIFFon [id number] #0.0 103/ulNormal0.0-0.1The [facility] ClinicComment on above:Performed By: #### BMP, LIPA, YVETTE, LIVER #### [facility] [address] [place] [address] [address] Idania RoldanBasophils/100 WBC (Bld)0.3 %Normal0.2-2.0[facility] Comment on above:Performed By: #### BMP, LIPA, YVETTE, LIVER #### [facility] [address] [place] [address] Dr. Idania To #0.1 103/ulNormal0.0-0.7The [facility] ClinicComment on above: Performed By: #### BMP, LIPA, YVETTE, LIVER #### [facility] [address] [place] [address] Dr. Idania Larkinosinophils/100 WBC (Bld)0.9 %Normal0.9-7.0[facility] Comment on above:Performed By: #### BMP, LIPA, YVETTE, LIVER #### [facility] [address] [place] [address] Dr. Idania Larkinrythrocyte distribution width (RBC) [Ratio]15.4 %Critically high 11.0-15.0The [facility] ClinicComment on above:Performed By: #### BMP, LIPA, YVETTE, LIVER #### [facility] [address] [place] [address] Dr. Idania RoldanHematocrit (Bld) [Volume fraction]36.0 %Wbdxbb38.0-48.0The [facility] ClinicComment on above:Performed By: #### BMP, LIPA, YVETTE, LIVER #### [facility] [address] [place] [address] Dr. Idania RoldanHemoglobin (Bld) [Mass/Vol]11.2 g/dLCritically low12.0-16.0The [facility] ClinicComment on above:Performed By: #### BMP, LIPA, YVETTE, LIVER #### [facility] [address] [place] [address] Dr. Idania Benson #0.02 10e3/ulNormal0.00-0.03The [facility] ClinicComment on above:Performed By: #### BMP, LIPA, YVETTE, LIVER #### [facility] [address] [place] [address] Dr. Idania Benson %0.3 %Normal0.0-0.5The [facility] ClinicComment on above: Performed By: #### BMP, LIPA, YVETTE, LIVER #### [facility] [address] [place] [address] Dr. Idania Castro #2.5 103/ulNormal1.2-3.8The [facility] ClinicComment on above:Performed By: #### BMP, LIPA, YVETTE, LIVER #### [facility] [address] [place] [address] Dr. Idania Felixhocytes/100 WBC (Bld)36.2 %Plcncq52.5-60.0The [facility] ClinicComment on above:Performed By: #### BMP, LIPA, YVETTE, LIVER #### [facility] [address] [place] [address] Dr. Idania CisseUAL DIFF REQNONormalThe [facility] ClinicComment on above: Performed By: #### BMP, LIPA, YVETTE, LIVER #### [facility] [address] [place] [address] Dr. Idania Sofia (RBC) [Entitic mass]24.9 pgCritically low26.7-34.0The [facility] ClinicComment on above:Performed By: #### BMP, LIPA, YVETTE, LIVER #### [facility] [address] [place] [address] Dr. Idania Christensen (RBC) [Mass/Vol]31.1 g/vSUdwdaf40.9-35.2The [facility] HospitalComment on above:Performed By: #### BMP, LIPA, YVETTE, LIVER #### [facility] [address] [place] [address] Dr. Idania Miramontes (RBC) [Entitic vol]80.2 fLCritically low81.0-99.0The [facility] ClinicComment on above:Performed By: #### BMP, LIPA, YVETTE, LIVER #### [facility] [address] [place] [address] [address] Idania Salazar #0.5 103/ulNormal0.3-0.8The [facility] ClinicComment on above:Performed By: #### BMP, LIPA, YVETTE, LIVER #### [facility] [address] [place] [address] [address] Idania Chavezocytes/100 WBC (Bld)6.7 %Normal1.7-12.0[facility] Comment on above:Performed By: #### BMP, LIPA, YVETTE, LIVER #### [facility] [address] [place] [address] Dr. Idania Santa #3.8 103/ulNormal1.4-6.5The [facility] ClinicComment on above:Performed By: #### BMP, LIPA, YVETTE, LIVER #### [facility] [address] [place] [address] Dr. Idania Lottutrophils/100 WBC (Bld)55.6 %Pwpcux63.0-75.0The [facility] ClinicComment on above:Performed By: #### BMP, LIPA, YVETTE, LIVER #### [facility] [address] [place] [address] Dr. Idania Bonds mean volume (Bld) [Entitic vol]9.9 fLNormal9.5-13.5The [facility] ClinicComment on above:Performed By: #### BMP, LIPA, YVETTE, LIVER #### [facility] [address] [place] [address] Dr. Idania FloresT265 103/cqRkujjj463-854Mqc [facility] ClinicComment on above: Performed By: #### BMP, LIPA, YVETTE, LIVER #### [facility] [address] [place] [address] Dr. Idania FishcerC4.49 106/ulNormal4.20-5.40Mer[facility] Health Willard Hospitalment on above:Performed By: #### BMP, LIPA, YVETTE, LIVER #### [facility] [address] [place] [address] Dr. Idania RoldanWBC6.8 103/ulNormal4.0-11.0The [facility] ClinicComment on above: Performed By: #### BMP, LIPA, YVETTE, LIVER #### [facility] [address] [place] [address] Dr. Idania Iniguez URINE PROFILEon 60-92-7522Tpfzrzwqr Ql (U)NegativeNormal NEGATIVECleveland ClinicComment on above:Performed By: #### PT, PTT #### [facility] [address] [place] [address] Dr. Idania RoldanClarity (U)CLEARNormalCLEARCleveland ClinicComment on above: Performed By: #### PT, PTT #### [facility] [address] [place] [address] Dr. Idania Wagner (U)LT. YELLOWNormalYRegional Medical CenterComment on above:Performed By: #### PT, PTT #### [facility] [address] [place] [address] Dr. Idania BinghamANA micrscopic examination will be performed if indicated. NormalThe [facility] ClinicComment on above:Performed By: #### PT, PTT #### [facility] [address] [place] [address] Dr. Idania RoldanGlucose Ql (U)NegativeNormalNEGATIVECleveland ClinicComment on above:Performed By: #### PT, PTT #### [facility] [address] [place] [address] Dr. Idania RoldanHemoglobin Ql (U)LARGEAbnormalNEGATIVEDayton Va Medical Center on above:Performed By: #### PT, PTT #### [facility] [address] [place] [address] Dr. Idania RoldanKetones Ql (U)NegativeNormalNEGATIVEThe [facility] ClinicComment on above:Performed By: #### PT, PTT #### [facility] [address] [place] [address] [address] Idania RoldanLEUKOCYTESTRACEAbnormalNEGATIVEThe [facility] ClinicComment on above:Performed By: #### PT, PTT #### [facility] [address] [place] [address] Dr. Idania Lopeztrite Ql (U)NegativeNormalNEGATIVEThe [facility] ClinicComment on above:Performed By: #### PT, PTT #### [facility] [address] [place] [address] Dr. Idania RoldanpH (U)6.0 [pH]Normal5-9The [facility] ClinicComment on above: Performed By: #### PT, PTT #### [facility] [address] [place] [address] Dr. Idania RoldanSPEC GRAVITY1.862Temcyx8.005-<=1.025The [facility] ClinicComment on above:Performed By: #### PT, PTT #### [facility] [address] [place] [address] Dr. Idania Bee PROTEINNegativeNormalNEGATIVE/ TRACEThe [facility] on above:Performed By: #### PT, PTT #### [facility] [address] [place] [address] Dr. Idania RoldanUR MICRO INDINDICATEDNormalThe [facility] ClinicComment on above: Performed By: #### PT, PTT #### [facility] [address] [place] [address] Dr. Idania RoldanUrobilinogen Qn (U)0.2 {Bryan'U}/dLNormal0.2 - 1.0The [facility] ClinicComment on above:Performed By: #### PT, PTT #### [facility] [address] [place] [address] Dr. Idania RoldanPROF CHEM 8 (BAS METB)on 73-06-7842Ttkkr gap [Moles/Vol]10.9 mmol/LNormalThe [facility] ClinicComment on above:Performed By: #### PT, PTT #### [facility] [address] [address] [address] Idania RoldanCalcium [Mass/Vol]8.9 mg/dLNormal8.5-10.1The [facility] Comment on above:Performed By: #### PT, PTT #### [facility] [address] [address] [address] Idania RoldanChloride [Moles/Vol]104 mmol/CMcqgdu25-230Cea [facility] Comment on above:Performed By: #### PT, PTT #### [facility] [address] [address] [address] Idania RlodanCO2 [Moles/Vol]28.9 mmol/XOossxo70.0-32.0The [facility] Comment on above:Performed By: #### PT, PTT #### [facility] [address] [address] [address] Idania RoldanCreatinine [Mass/Vol]0.71 mg/dLNormal0.55-1.02The [facility] ClinicComment on above:Performed By: #### PT, PTT #### [facility] [address] [address] [address] Idania LarkinGFR-AF MONTENEGRIN>60Normal>=60The [facility] ClinicComment on above:Performed By: #### PT, PTT #### [facility] [address] [address] [address] Idania LarkinGFR-NON AF MONTENEGRIN>60Normal>=60The [facility] ClinicComment on above:Performed By: #### PT, PTT #### [facility] [address] [address] [address] Idania RoldanGlucose [Mass/Vol]88 mg/pXSpmobk09-921Pda [facility] Comment on above:Performed By: #### PT, PTT #### [facility] [address] [address] [address] Idania RoldanPotassium [Moles/Vol]3.8 mmol/LNormal3.5-5.1The [facility] Comment on above:Performed By: #### PT, PTT #### [facility] [address] [address] [address] Idania Fernandezum [Moles/Vol]140 mmol/AZqzozq381-136Lpw [facility] Comment on above:Performed By: #### PT, PTT #### [facility] [address] [address] [address] Idania Licona nitrogen [Mass/Vol]13.0 mg/dLNormal7.0-18.0C[facility] ClinicComment on above:Performed By: #### PT, PTT #### [facility] [address] [address] [address] dIania Licona nitrogen/Creatinine [Mass ratio]18.3 mg/mgNoTriHealthComment on above:Performed By: #### PT, PTT #### [facility] [address] [address] [address] Idania Mcintosh MICROSCOPIC ONLYon 15-99-3562IRLWPKUBPAKW SEENNormalNONE SEENCleveland ClinicComment on above:Performed By: #### PT, PTT #### [facility] [address] [address] [address] Idania Kinney identified Cx Nom (U)NOT INDICATEDNoTriHealthComment on above:Performed By: #### PT, PTT #### [facility] [address] [address] [address] Idania Marquez SEENNormalNONE SEENCleveland ClinicComment on above:Performed By: #### PT, PTT #### [facility] [address] [address] [address] Idania Barajas LM Nom (Urine sed)NONE SEENNormalNONE SEENCleveland ClinicComcorewell health butterworth hospital on above:Performed By: #### PT, PTT #### [facility] [address] [address] [address] Emerson ChangEpithelial cells LM Ql (Urine sed)FEWAbnormalNONE SEEN /RAREThe [facility] ClinicComment on above:Performed By: #### PT, PTT #### [facility] [address] [address] [address] Idania RoldanMUGLORIA SEENNormalNONE SEENSelect Medical Specialty Hospital [facility] on above:Performed By: #### PT, PTT #### [facility] [address] [address] [address] Idania RoldanEkgzhBOD86-97Lfdtbbrd5-8Lkq Cleveland ClinicComcorewell health butterworth hospital on above: Performed By: #### PT, PTT #### [facility] [address] [address] [address] Idania RoldanWBC0-2AbnormalNONE SEENSelect Medical Specialty Hospital [facility] on above: Performed By: #### PT, PTT #### [facility] [address] [address] [address] Idania RoldanXR ABD FLAT UP_PA Edna 05-68-2243KK ABD FLAT UP_PA CHEXAMINATION: XR ABD FLAT [...] Electronically authenticated by: RUSSELL DUFF Date: 2022-04-29 13:37[facility] HospitalUS KIDNEYS BLADDERon 14-11-7831NE KIDNEYS BLADDEREXAMINATION: US KIDNEYS BLADDER HISTORY: Kidney [...] Electronically authenticated by: RUSSELL DUFF Date: 2022-04-16 18:24[facility] LOWER EXTREMITY WO CONTRAST LEFTon 40-06-7894KL LOWER EXTREMITY WO CONTRAST LEFTUnOhioHealth Shelby Hospital Department of Radiology [address] [place] [id number] Patient Name: ELVI MOORE : 1980 Sex: F Age: Race: White Pt. Location: Patient Status: D Ordered Date: 03/24/2022 9:30:00 AM Completed Date: 04/07/2022 05:13 PM Requesting Provider: KEVIN LANE Attending Provider: KEVIN LANE Report Copy To: ARLETH ACHARYA Signs & Symptoms: Z96.659 Presence of unspecified artificial knee joint I10 History: [place] Comments: , left knee Exam: CT LOWER [...] arthroplasty. Electronically signed: Elvis Perez. Transcribed by: [email or web address], User Resident: Electronically Signed by: ELVIS PEREZ @ 04/12/2022 09:46 AMNormalThe [facility] Memorial HospitalComment on above:Order Comment: , left kneeC REACTIVE PROTEINon 37-36-5431YSD [Mass/Vol]2.2 mg/LNormal0.0-7.0The [facility] HospitalComment on above:Performed By: #### [id number] #### [facility] [address] [place] [address], USASEDIMENTATION RATEon 19-09-8214VFN RATE30 mm/hrHigh0-20The [facility] HospitalComment on above:Performed By: #### [id number] #### [facility] [address] [place] [address], USAKNEE LEFT 1 OR 2 VWSon 25-16-9810BPTK LEFT 1 OR 2 VWS [facility] Department [facility] Rad[facility] [address] [place] [phone] Patient Name: ELVI MOORE : 1980 Sex: F Age: Race: White Pt. Location: Patient Status: O Ordered Date: 02/12/2022 7:30:00 AM Completed Date: 02/12/2022 10:29 AM Requesting Provider: KEVIN LANE Attending Provider: KEVIN LANE Report Copy To: Signs & Symptoms: LT KNEE REANNA History: Comments: LT KNEE REANNA Exam: KNEE LEFT 1 OR 2 [facility] KNEE LEFT 1 OR 2 [facility] intraoperative fluoroscopy 02/12/2022 10:29 AM CLINICAL INDICATIONS: [...] report. Electronically signed: Sathya Christianson. Transcribed by: [email or web address], User Resident: Electronically Signed by: SATHYA CHRISTIANSON @ 02/13/2022 10:48 [facility]itan Medical CenterComment on above:Order Comment: LT KNEE REANNA Operative Reporton [id number] ReportMR#: [id number] S [facility] Pt. Name: Elvi Moore Room #: 0C Discharge Date: Birthdate: 1980 OPERATIVE REPORT DATE OF SURGERY: 02/12/2022 SURGEON: Kevin Lane M.D. PLATE MAKER: None. PREOPERATIVE DIAGNOSIS: Left total knee arthroplasty [...] Lane M.D. Date Trans: 02/12/2022 09:35 A/taylor DN_JN:[id number] cc: Arleth Acharya M.D. [address] [address]RsvvscOeaBarberton Citizens Hospital GLUCOSE LABon 39-90-6228Noyifgm [Mass/Vol]96 mg/zTCjfemr20-547Orj [facility] HospitalComment on above:Performed By: #### [id number] ####[facility] [place] [address], [facility] REACTIVE PROTEINon 08-70-5494PHT [Mass/Vol]1.7 mg/LNormal0.0-7.0The [facility] HospitalComment on above:Performed By: #### 50088 #### [facility] [address] [place] [address], USASEDIMENTATION RATEon 71-72-7323YBQ RATE18 mm/hrNormal0-20 The [facility] HospitalComment on above:Performed By: #### 40121 #### [facility] [address] [place] [address], USAKNEE LEFT 3 VWSon 62-52-0644ZCNW LEFT 3 S[facility]iThe [facility] Department of Radiology [address] [place] [address] Patient Name: ELVI MOORE : [...] report. Electronically signed: Yvette Desai. Transcribed by: [email or web address], User Resident: CHRISTELLE ABDI Electronically Signed by: YVETTE DESAI @ 12/26/2021 04:27 PM I personally read this/these film(s) with this residentMercy Health Fairfield HospitalComment on above:Order Comment: , , , Ordering Provider - JORDEN BRODY CNP , KNEE LEFT 3 [facility] [id number] LEFT 3 [facility] Department of Radiology [address] [place] [address] Patient Name: ELVI MOORE : 1980 Sex: F Age: Race: White Pt. Location: Patient Status: D Ordered Date: 12/09/2021 9:30:00 AM Completed Date: 12/09/2021 09:37 AM Requesting Provider: JORDEN BRODY Attending Provider: JORDEN BRODY Report Copy To: Signs & Symptoms: Z47.1 Aftercare following joint replacement surgery I10 History: [place] Comments: Exam: KNEE LEFT 3 VWS KNEE LEFT 3 S HISTORY: Knee replacement, follow-up. COMPARISON: 10/30/2021. IMPRESSION: 1. Redemonstrated knee arthroplasty, no hardware complication or acute abnormality. Small to moderate joint effusion. 2. Improving soft tissue changes. Electronically signed: Ezio Roberts. Transcribed by: [email or web address], User Resident: Electronically Signed by: EZIO ROBERTS @ 12/10/2021 08:39 AMNormalThe [facility] HospitalOperative Reporton [id number] ReportMR#: [id number] S [facility] Pt. Name: Elvi Moore Room #: 0C Discharge Date: Birthdate: 1980 OPERATIVE REPORT DATE OF SURGERY: 10/30/2021 SURGEON: Kevin Lane M.D. PLATE MAKER: 1. MD Wales[place]. 2. LAVON Quinones. ANESTHESIA: [...] arthrotomy was closed itself with #2 interrupted fnerwq-qs-fxhsc suture. The remainder of the incision was closed in a layered fashion. Sterile dressing was applied. At the conclusion of the case, all sponge and needle counts were correct. I was present for the critical portions of this case. Electronically Signed by: Kevin Lane M.D. 10/30/2021 07:[address] M.D. Date Dict: 10/30/2021/11:00 A/Kevin Lane M.D. Date Trans: 10/30/2021 12:34 P/mmo DN_JN:[id number] cc: Arleth Acharya M.D. [address], [facility] [address] Nasir Thacker, [address] [facility] [address] [facility] [address]LyfdqzVxmMercy Health Fairfield HospitalPOC GLUCOSE LABon 10-68-3351Uhqigte [Mass/Vol]88 mg/vCRhdjqu63-007Koy [facility] HospitalComment on above:Performed By: #### [id number] ####[place] [id number] [facility] [place] [address], USAPORTABLE KNEE LEFT 2 VWSon 66-71-0233GJSMJINO KNEE LEFT 2 SUniversCincinnati [facility] Department of Radiology [address] [place] [address] Patient Name: ELVI MOORE : [...] complication Electronically signed: Yvette Andrade. Transcribed by: [email or web address], User Resident: Electronically Signed by: YVETTE ANDRADE @ 10/30/2021 11:20 AMNormalThe [facility] HospitalComment on above:Order Comment: Hardware Evaluation, Postop PACU films for L knee s/p TKA. AP and lateral please*MRSA/MSSA DNA NASAL on 10-07-2021*MRSA/MSSA DNA NASALClinical Report: (D) Specimen: NASAL SWAB Collected: 10/07/2021 10:51 Status: Final Last Updated: 10/07/2021 15:44 MSSA DNA (Final) Negative MRSA DNA (Final) NegativeNoEast Liverpool City HospitalComment on above:Performed By: #### 45810 ####[facility] [place] [address], [facility] 29-03-0298jJXB Coag (Bld) [Time]32.2 lPxfkdq96.0-35.0The [facility] HospitalComment on above:Result Comment: ALL RESULTS MUST [...] BE USED FOR THIS PURPOSE.Performed By: #### [id number] #### [facility] [address] [place] [address], USABASIC METABOLIC PANELon 22-20-0396Kyclflb [Mass/Vol]9.2 mg/dLNormal8.6-10.3The [facility] HospitalComment on above: Performed By: #### 00494 #### [facility] [address] [place] [address], USAChloride [Moles/Vol]106 mmol/GRznejy46-898Bpz [facility] HospitalComment on above:Performed By: #### 54710 #### [facility] [address] [place] [address], USACO2 [Moles/Vol]28 mmol/DRtoows87-36Qij [facility] HospitalComment on above:Performed By: #### 71400 #### [facility] [address] [place] [address], USACreatinine [Mass/Vol]0.77 mg/dLNormal0.60-1.20The [facility] HospitalComment on above:Performed By: #### 62380 #### [facility] [address] [place] [address], USAGFR/1.73 sq M.predicted among blacks MDRD (S/P/Bld) [Vol rate/Area]mL/min/{1.73_m2}Normal>60The [facility] Comment on above:Performed By: #### 66246 #### [facility] [address] [place] [address], USAGFR/1.73 sq M.predicted among non-blacks MDRD (S/P/Bld) [Vol rate/Area]mL/min/{1.73_m2}Normal>60The [facility] Comment on above:Performed By: #### 81965 #### [facility] [address] [facility] [place] [address], [facility] AT L[facility] VEGASGlucose [Mass/Vol]84 mg/iTHodgtp17-395Hcl [facility] HospitalComment on above:Performed By: #### 49502 #### [facility] [address] [facility] [place] [address], USAPotassium [Moles/Vol]4.4 mmol/LNormal3.5-5.1The [facility] HospitalComment on above:Performed By: #### 27376 #### [facility] [address] [facility] [place] [address], USASodium [Moles/Vol]142 mmol/OPqknfo052-882Dfh [facility] HospitalComment on above:Performed By: #### 14175 #### [facility] [address] [facility] [place] [address], USAUrea nitrogen [Mass/Vol]12 mg/dLNormal7-25The [facility] HospitalComment on above:Performed By: #### 37642 #### [facility] [address] [facility] [place] [address], [facility] INSTITUTE AT LAS VEGASCBC W/DIFFon 82-29-8482QWO IMM GRANS0.0 10*3/uLNormal 0.0-0.2The [facility] HospitalComment on above:Performed By: #### 80589 #### [facility] [address] [facility] [place] [address], USAABS NEUTROPHILS4.7 10*3/uLNormal1.6-7.6The [facility] HospitalComment on above:Performed By: #### 31973 #### [facility] [address] [facility] [place] [address], USABasophils (Bld) [#/Vol]0.0 10*3/uLNormal0.0-0.2The [facility] HospitalComment on above:Performed By: #### 08086 #### [facility] [address] [facility] [place] [address], USABasophils/100 WBC (Bld)0.3 %Normal0.0-1.0The [facility] HospitalComment on above:Performed By: #### 91429 #### [facility] [address] [facility] [place] [address], USAEosinophils (Bld) [#/Vol]0.2 10*3/uLNormal0.0-0.5The [facility] HospitalComment on above:Performed By: #### 48906 #### [facility] [address] [facility] [place] [address], USAEosinophils/100 WBC (Bld)1.9 %Normal0.0-6.0The [facility] HospitalComment on above:Performed By: #### 32214 #### [facility] [address] [place] [address], USAErythrocyte distribution width (RBC) [Ratio]14.0 %Normal 11.5-15.0The [facility] HospitalComment on above:Performed By: #### 56713 #### [facility] [address] [place] [address], USAHematocrit (Bld) [Volume fraction]37.1 %Pfrfll58.0-45.0The [facility] HospitalComment on above:Performed By: #### 17275 #### [facility] [address] [place] [address], USAHemoglobin (Bld) [Mass/Vol]11.3 g/dLLow12.0-15.0The [facility] HospitalComment on above:Performed By: #### 70385 #### [facility] [address] [place] [address], USAIMMATURE GRANS0.1 %Normal0.0-1.0The [facility] HospitalComment on above:Performed By: #### 01100 #### [facility] [address] [place] [address], USALymphocytes (Bld) [#/Vol]2.5 10*3/uLNormal1.2-4.0The [facility] HospitalComment on above:Performed By: #### 31026 #### [facility] [address] [place] [address], [facility] AT L[facility] VEGASLymphocytes/100 WBC (Bld)31.6 %Zgbned48.0-45.0The [facility] HospitalComment on above:Performed By: #### 65983 #### [facility] [address] [place] [address], [facility] INSTITUTE AT LAS VEGASMCH (RBC) [Entitic mass]25.5 pgLow27.0-33.0The [facility] HospitalComment on above:Performed By: #### 22310 #### [facility] [address] [place] [address], [facility] INSTITUTE AT LAS VEGASMCHC (RBC) [Mass/Vol]30.5 g/dLLow32.0-35.0The [facility] HospitalComment on above:Performed By: #### 43322 #### [facility] [address] [place] [address], [facility] INSTITUTE AT LAS VEGASMCV (RBC) [Entitic vol]83.7 dURhkgvb21.0-98.0The [facility] HospitalComment on above:Performed By: #### 57116 #### [facility] [address] [place] [address], USAMonocytes (Bld) [#/Vol]0.5 10*3/uLNormal0.1-1.0The [facility] HospitalComment on above:Performed By: #### 42435 #### [facility] [address] [place] [address], USAMONOS6.0 %Normal5.0-12.0The [facility] Memorial HospitalComment on above:Performed By: #### 94541 #### [facility] [address] [place] [address], USANeutrophils/100 WBC (Bld)60.1 %Mumyta55.0-72.0The [facility] HospitalComment on above:Performed By: #### 17853 #### [facility] [address] [place] [address], USANucleated RBC/100 WBC (Bld) [Ratio]0 %Normal0-0The [facility] HospitalComment on above:Performed By: #### 64946 #### [facility] [address] [address], USAPLAT NCX386 10*3/hPOyaovt821-286Tuz [facility] HospitalComment on above:Performed By: #### 37029 #### [facility] [address] [facility] [address], USARBC (Bld) [#/Vol]4.43 10*6/uLNormal3.80-5.00The [facility] HospitalComment on above:Performed By: #### 84132 #### [facility] [address] [place] [address], USAWBC (Bld) [#/Vol]7.85 10*3/uLNormal4.00-10.60The [facility] HospitalComment on above:Performed By: #### 60303 #### [facility] [address] [facility] [place] [address], [facility] AT L[facility] VEGASPROTHROMBIN TIMEon 78-27-5499LLG Coag (PPP) [Relative time] 0.94 {INR}Normal0.91-1.16The [facility] HospitalComment on above:Result Comment: ACCCP RECOMMENDED INR [...] OPTIMAL THERAPEUTIC RANGE. CHEST 1995;108:231S-246S.Performed By: #### 00997 #### [facility] [address] [facility] [place] [address], [facility]AV[facility] INSTITUTE AT LAS VEGASPT Coag (PPP) [Time]12.6 zGfvsoo28.3-14.8The [facility] HospitalComment on above:Result Comment: ALL RESULTS MUST BE INTERPRETED WITH RESPECT TO BLOOD DRAWING ARTIFACT OR DILUTION ERROR OF ANTICOAGULANT AT THE TIME OF SAMPLING.Performed By: #### 47813 #### [facility] [address] [place] [address], [facility] AT LAS VEGASTYPE AND SCREENon 06-31-1336ITR INTERPRETATIONONoEast Liverpool City HospitalComment on above:Performed By: #### 65676 #### [facility] [address] [facility] [place] [address], [facility]STITUTE AT L[facility] VEGASRH INTERPRETATIONPositiveNoEast Liverpool City HospitalComment on above:Performed By: #### 03484 #### [facility] [address] [place] [address], [facility]*MRSA/MSSA DNA NASALon 08-12-2021*MRSA/MSSA DNA NASAL Clinical Report: (D) Specimen: NASAL SWAB Collected: 08/12/2021 10:14 Status: Final Last Updated: 08/12/2021 18:58 MSSA DNA (Final) Negative MRSA DNA (Final) NegativeNormalThe [facility] HospitalComment on above:Performed By: #### 97282 #### [facility] [address] [place] [address], USACBC W/DIFFon 31-14-4324CBV IMM GRANS0.0 10*3/uLNormal 0.0-0.2The [facility] HospitalComment on above:Performed By: #### 90502 #### [facility] [address] [facility] [place] [address], USAABS NEUTROPHILS3.7 10*3/uLNormal1.6-7.6The [facility] HospitalComment on above:Performed By: #### 41611 #### [facility] [address] [place] [address], USABasophils (Bld) [#/Vol]0.0 10*3/uLNormal0.0-0.2The [facility] HospitalComment on above:Performed By: #### 01680 #### [facility] [address] [place] [address], USABasophils/100 WBC (Bld)0.3 %Normal0.0-1.0The [facility] HospitalComment on above:Performed By: #### 64513 #### [facility] [address] [place] [address], USAEosinophils (Bld) [#/Vol]0.2 10*3/uLNormal0.0-0.5The [facility] HospitalComment on above:Performed By: #### 00799 #### [facility] [address] [place] [address], USAEosinophils/100 WBC (Bld)2.9 %Normal0.0-6.0The [facility] HospitalComment on above:Performed By: #### 39635 #### [facility] [address] [place] [address], USAErythrocyte distribution width (RBC) [Ratio]14.0 %Normal 11.5-15.0The [facility] HospitalComment on above:Performed By: #### 70609 #### [facility] [address] [facility] [place] [address], USAHematocrit (Bld) [Volume fraction]37.0 %Uenhmi83.0-45.0The [facility] HospitalComment on above:Performed By: #### 59089 #### [facility] [address] [facility] [place] [address], USAHemoglobin (Bld) [Mass/Vol]11.6 g/dLLow12.0-15.0The [facility] HospitalComment on above:Performed By: #### 96719 #### [facility] [address] [facility] [place] [address], USAIMMATURE GRANS0.3 %Normal0.0-1.0The [facility] Memorial HospitalComment on above:Performed By: #### 99548 #### [facility] [address] [facility] [place] [address], USALymphocytes (Bld) [#/Vol]2.1 10*3/uLNormal1.2-4.0The [facility] HospitalComment on above:Performed By: #### 49132 #### [facility] [address] [facility] [place] [address], USALymphocytes/100 WBC (Bld)32.5 %Nsjamm49.0-45.0The [facility] Memorial HospitalComment on above:Performed By: #### 03929 #### [facility] [address] [facility]. [place] [address], [facility] CITYH (RBC) [Entitic mass]26.8 pgLow27.0-33.0The [facility] Memorial HospitalComment on above:Performed By: #### 57260 #### [facility] [address] [place] [address], [facility]STITUTE AT LAS VEGASMCHC (RBC) [Mass/Vol]31.4 g/dLLow32.0-35.0The [facility] HospitalComment on above:Performed By: #### 24022 #### [facility] [address] [place] [address], [facility] INSTITUTE AT LAS VEGASMCV (RBC) [Entitic vol]85.5 sWVdjvfy03.0-98.0The [facility] HospitalComment on above:Performed By: #### 18578 #### [facility] [address] [place] [address], [facility] AT L[facility] VEGASMonocytes (Bld) [#/Vol]0.5 10*3/uLNormal0.1-1.0The [facility] HospitalComment on above:Performed By: #### 23954 #### [facility] [address] [place] [address], USAMONOS6.9 %Normal5.0-12.0The [facility] Memorial HospitalComment on above:Performed By: #### 13832 #### [facility] [address] [place] [address], USANeutrophils/100 WBC (Bld)57.1 %Gywosz73.0-72.0The [facility] HospitalComment on above:Performed By: #### 34707 #### [facility] [address] [place] [address], USANucleated RBC/100 WBC (Bld) [Ratio]0 %Normal0-0The [facility] Memorial HospitalComment on above:Performed By: #### 41033 #### [facility] [address] [place] [address], USAPLAT MIB638 10*3/fBZddooc113-784Yfg [facility] HospitalComment on above:Performed By: #### 77453 #### [facility] [address] [place] [address], USARBC (Bld) [#/Vol]4.33 10*6/uLNormal3.80-5.00The [facility] HospitalComment on above:Performed By: #### 96613 #### [facility] [address] [place] [address], USAWBC (Bld) [#/Vol]6.55 10*3/uLNormal4.00-10.60The [facility] HospitalComment on above:Performed By: #### 71023 #### [facility] [address] [facility] [place] [address], USAHEMOGLOBIN A1Con 58-86-9371Yuhjllu [Moles/Vol]103 mmol/L NormalThe [facility] Memorial HospitalComment on above:Performed By: #### 15259 #### [facility] [address] [facility] [address], SMRSiO0h (Bld) [Mass fraction]5.2 %Normal4.0-6.0The [facility] Memorial HospitalComment on above:Performed By: #### 96022 #### [facility] [address] [facility] [place] [address], USAKNEE LEFT 3 Son 70-44-1594WKTR LEFT 3 [facility] Department of Radiology [address] [place] [address] Patient Name: ELVI MOORE DOB: 1980 Sex: F Age: Race: White Pt. [...] report. Electronically signed: Jah Juarez. Transcribed by: [email or web address], User Resident: JODY KEITH Electronically Signed by: JAH JUAREZ @ 08/12/2021 03:46 PM I personally read this/these film(s) with this Madison HealthComment on above:Order Comment: evaluateOtolaryngology Office/Clinic Noteon 18-23-1232Acoqjeohfzbdvo Office/Clinic NoteChief Complaint Patient states I am [...] data available.Electronically signed by Zhane Tamez MD 12/30/17 16:02 [facility] CenterOtol[facility] Office/Clinic Noteon 56-95-4923Ukgbnhkeksqfel Office/Clinic NoteChief Complaint post-opHistory of Present Illness [...] signed by Zhane Tamez MD 11/18/17 16:31 [facility] Patient seen for dispense of bilateral swim plugs. Both plugs display good fit in the ears, and patient confirmed comfort of fit. Proper insertion/removal was practiced successfully. Plan: Return if issues arise regarding swim plugs. N/C, swim plugs paid at last appointment.Electronically signed by_ Rima Muñoz 11/18/17 16:04 [facility] Office/Clinic Noteon 59-92-1034Yfaavcochjpmbh Office/Clinic NotePatient seen for bilateral earmold impressions for swim plugs. Earmold impressions made without incident and otoscopy prior to and following impressions was unremarkable. Patient chose purple, pink, and green swirl color for plugs. Plan: Return in 3 weeks for dispense, prior to follow-up appointment with Dr. Zhane Tamez. $70.Electronically signed by _Kyara Roque Rima Pina 10/28/17 16:31 ESTNormalHolmes County [facility] Ot[facility] Office/Clinic NoteChief Complaint post-opHistory [...] signed by Zhane Tamez MD 10/28/17 15:41 [facility] Office/Clinic Noteon 51-45-6740Txlgmwsinoeguj Office/Clinic NoteChief Complaint left ear painHistory of [...] signed by Zhane Tamez MD 09/16/17 16:06 [facility] HospitalOtolaryng[facility] Consultationon 04-20-2017 Otolaryngology ConsultationChief Complaint Left [...] signed by Zhane Tamez MD 04/20/17 16:51 [facility] Vital Signs Date TimeVital SignValuePerforming OwbkqqxwpFwltdphx01-21-3140 10:17-0500Body uohbbo826.6 cmMatthew Hamilton [place] Work Phone: [employer] GroupFreeman Health SystemQhboyhrnhx56-60-0218 10:17-0500Body mass index (BMI) [Ratio]25.82 kg/t5Fpasfqp Hamilton [place] Work Phone: [employer] GroupFreeman Health SystemGeqocofbjg76-99-0731 10:17-0500Body .58 kgMatthew Hamilton [place] Work Phone: [employer] GroupFreeman Health SystemKwiipaqzsz81-38-0849 16:20-0400Body mass index (BMI) [Ratio]26.75 kg/m3Quqjn [place] Work Phone: NOFreeman Health SystemJqqcfmtptr65-32-5884 16:20-0400Body mgsymm00.47 kgCorey Tano DO Work Phone: [facility] HospitalHtxyqusqzw47-13-0216 16:20-0400Diastolic blood iesuuuyn65 mm[Hg]Eduardo Tano DO Work Phone: [facility] HospitalLibwzgzjxc73-82-5407 16:20-0400Systolic blood xqbrujga461 mm[Hg]Eduardo Tano DO Work Phone: [facility] HospitalPeyrrzqhtd52-67-7108 16:03-0400Blood Pressure LocationJENNIFER STEPH [facility]05-28-2024 16:03-0400Body atvzxuwqkmb26.88 [degF]ELIZABETHJANESSA CHOI [facility]05-28-2024 16:03-0400Diastolic blood whmcpgue73 mm[Hg]ELIZABETHLEA AKBARRY [facility]05-28-2024 16:03-0400Heart rate87 /minJENNIFER STEPH [facility]05-28-2024 16:03-0400Respiratory rate16 /minJENNIFER STEPH [facility]05-28-2024 16:03-0400Systolic blood mm[Hg]ELIZABETH CHOI [facility]03-28-2024 18:12-0400Body atkysy827.64 cmMD Arleth Acharya Work Phone: [facility]03-28-2024 18:12-0400 Body mass index (BMI) [Ratio]25.6 kg/m2MD Arleth Acharya Work Phone: [facility]03-28-2024 18:12-0400 Body moniohubrrt59.2 [degF]MD Arleth Acharya Work Phone: [facility]03-28-2024 18:12-0400 Body dwoplu00 kgMD Arleth Hoy Work Phone: [facility]03-28-2024 18:12-0400 Heart rate93 /minMD Lyradha Acharya Work Phone: [facility]03-28-2024 18:12-0400 Respiratory rate16 /minMD Arleth Acharya Work Phone: [facility]03-28-2024 18:12-0400 SaO2% (BldA) [Mass fraction]99 %MD Arleth Acharya Work Phone: [facility]12-04-2023 12:04-0500 Blood Pressure LocationPaIngageapp [facility]12-04-2023 12:04-0500Diastolic blood erukeaof20 mm[Hg][employer] [facility]12-04-2023 12:04-0500Heart rate64 /minPatrick SourceMedical [facility]12-04-2023 12:04-0500Respiratory rate16 /minPatrick SourceMedical [facility]12-04-2023 12:04-0500Systolic blood yyrnueed928 mm[Hg]Diana SourceMedical [facility]08-18-2023 11:12-0400Body lsukfzmhgmi82 [degF]MD Arleth Acharya Work Phone: [facility]08-18-2023 11:12-0400 Body gzofzs43.76 kg Arleth Acharya Work Phone: [facility]08-18-2023 11:12-0400 Diastolic blood bhasoyfl68 mm[Hg]MD Arleth Acharya Work Phone: [facility]08-18-2023 11:12-0400 Heart rate88 /minMD Arleth Acharya Work Phone: [phone] [place], [place] 3296208-18-2023 11:12-0400 Respiratory rate16 /min Arleth Patrizia Work Phone: [facility]08-18-2023 11:12-0400 SaO2% (BldA) [Mass fraction]98 %MD Arleth Acharya Work Phone: [facility]08-18-2023 11:12-0400 Systolic blood mm[Hg]MD Arleth Acharya Work Phone: [phone]08-18-2023 11:00-0400 Body rcixey623.64 cmMD Arleth Acharya Work Phone: [facility]09-19-2022 09:25-0400 Blood Pressure LocationPatricfatuma SourceMedical [facility]09-19-2022 09:25-0400Diastolic blood mm[Hg]Diana SourceMedical [facility]09-19-2022 09:25-0400Heart rate84 /minPatricfatuma HAWKINS [facility]09-19-2022 09:25-0400Respiratory rate16 /minPatricfatuma HAWKINS [facility]09-19-2022 09:25-0400Systolic blood zcispdpb574 mm[Hg]Diana SourceMedical [facility] Encounters Encounter DateEncounter TypeCare ProviderFacilityStart: 08-14-2025 End: 69-48-1858Twylfv flowsBhavya PENNINGTON Work Phone: [facility]Start: 08-14-2025 End: 86-71-7601Nmzndr flowsBhavya PENNINGTON Work Phone: [facility]Start: 08-14-2025 End: 27-32-2428Gxohmhhsn encounterMadileep PENNINGTON Work Phone: [facility]opaedicsComment on above:Patient returning our call about a card for her device?Start: 08-14-2025 End: 17-62-1515Awnbht outpatient new 30 minutesMadileep PENNINGTON Work Phone: [facility] OrthopaedicsComment on above:Acute pain of right knee (Primary Dx); Internal derangement of right kneeStart: 08-14-2025 End: 97-99-4887yerqvpzavtBXEXKIG J MEYERNot AvailableStart: 08-12-2025 End: 67-32-9472Lstmaxpbr department patient visitARLETH Phillips [facility]ublintart: 98-06-0160houxykqgkgUXPKRZ Centervilletart: 05-07-2025 End: 73-24-1386Bzzpeummo department patient visitARLETH Phillips [facility]ublintart: 05-04-2025 End: 12-41-2918murpmmhhbiRdlqnka M [facility] Work Phone: Start: 05-04-2025 End: 04-61-9506Kmvzvsom ReferredArleth Phillips MD-LAB [facility] Start: 80-80-4491ledlaawitzDNKQZGRegency Hospital Cleveland Westtart: 03-19-2025 End: 26-17-3760Oailhdr encounter procedureCorey Tano DO Work Phone: [facility] Work Phone: Start: 03-19-2025 End: 33-28-8582Ojeqqjna preventive med est patient 40-64yrsCorey Tano DO Work Phone: [facility] BCP OBComment on above:Well woman exam with routine gynecological exam; Breast cancer screening by mammogramStart: 03-19-2025 End: 69-04-5800uqdjvlwfgwFLLOF FAZIONot AvailableStart: 03-19-2025 End: 45-96-2996Qspztl flowsheetCorey Tano DO Work Phone: NOWG BCP OBStart: 03-19-2025 End: 83-20-7433Rpiysd flowsheetCorey Tano DO Work Phone: [facility] BCP OBStart: 03-19-2025 End: 30-27-4957Phmsyxmum Result EncounterCorey Tano DO Work Phone: [facility] External Department UnsolicitedStart: 01-26-2025 ambulatoryAdena Health Systemtart: 01-11-2025 End: 25-69-7162Vviizjgxqd and management of inpatientDOBRE Phillips [facility]ublintart: 12-25-2024 End: 77-09-5611ahfcudkndaQXYKLCOhioHealth Riverside Methodist Hospitaltart: 12-08-2024 End: 89-73-2978Wcpsnfohz department patient visitBRE Phillips [facility]ublintart: 12-05-2024 End: 83-93-3864oyowhpzhnhNQAUZINNM [facility] Start: 82-06-0950odgyxsizamZJWIUVVMarymount Hospital Start: 07-17-2024 End: 00-07-5514feauauoauhFSOXXGR C [facility] Hospitaltart: 05-01-2024 End: 45-60-5564jjrxbfycjvVNVOBEL [facility] Hospitaltart: 05-01-2024 End: 87-27-3837Snfdqbpqye hospital visit by [facility] CT ScanComment on above:Pleomorphic adenoma of parotid glandStart: 03-22-2024 End: 24-34-0769wlduflzdpdUT Arleth M Hoy Work Phone: [facility] Work Phone: Start: 03-22-2024 End: 53-05-4348Hmgjwszb ReferredMD Arleth Hoy Work Phone: [facility]-LAB Path Spec [facility]ique HospStart: 03-07-2024 End: 52-90-6082jucynstnmeBI-C ELIZABETH Yi PERRYFacility:EU BellevueStart: 03-07-2024 End: 22-56-7870Hhqkrgx encounter procedureJENAINA CHOI [facility] start: 01-06-2024 End: 99-83-7798xmuoipuldtQT Arleth M Hoy Work Phone: [facility] Work Phone: Start: 01-06-2024 End: 74-52-6813Alfxjvn encounter procedureMD Arleth Hoy Work Phone: [facility] Work Phone: Start: 10-12-2023 End: 55-88-4072Bjfisxu encounter procedurePatricfatuma HAWKINS [facility] Start: 09-13-2023 End: 83-55-7131Jiabiee encounter procedurePatricfatuma R HAWKINS [facility] start: 05-28-2023 End: 45-25-8205rbyozcmjjmHO Arleth M Hoy Work Phone: [facility] Work Phone: Start: 05-28-2023 End: 57-22-2851Hqvopdirtt RecurringMD Arleth Hoy Work Phone: [facility] Work Phone: Start: 01-25-2023 End: 01-73-5986oyuahcslfbXBMHKXC Gee KATKOFacility:N1Rznlv: 01-21-2023 End: 05-72-1122eceksmgsjcLS ARLETH HOY .Facility:Q8Mfdpw: 01-04-2023 End: 61-27-0633Tmbspsm encounter procedurePatrick Wolfgang HAWKINS [facility] start: 11-34-7942lparfxkmrpTN ARLETH HOY .Facility:H1 Start: 10-06-2022 End: 99-75-6396ukhetshqjyHA ARLETH HOY .Facility:D3Xvlfo: 09-30-2022 End: 73-34-6148edhmhdrqyqZW ARLETH HOY .Facility:Z4Ajwkt: 09-21-2022 End: 80-15-2839ejoieevxwsGH ARLETH HOY .Facility:Q0Ogbag: 97-28-0381Oreypuskc for preprocedural laboratory examinationDR DIANA HAWKINS .[facility] Start: 08-27-2022 End: 22-25-5323makbnquwfiER DIANA HAWKINS .Facility:L9Mlrod: 08-24-2022 End: 93-77-7743jaiwvzlugfZV DIANA HAWKINS .Facility:M0Ovphe: 08-24-2022 End: 53-83-8516Gmofobxed for preprocedural laboratory examinationDR DIANA HAWKINS .Facility:N9Ladde: 08-21-2022 End: 96-85-2037xblfyxmbzzOT DIANA HAWKINS .Facility:Z6Phqxf: 08-19-2022 End: 18-04-7332oxqrjlvqwmSQ DIANA HAWKINS .Facility:I1Zteqo: 07-23-2022 End: 71-34-5995beuheuduccRR DIANA HAWKINS .Facility:S9Oxkxo: 07-20-2022 End: 65-80-5456xwzidmzrssIL DIANA HAWKINS .Facility:O2Rujlz: 07-10-2022 End: 87-44-8047tmqqlyrzqaLB DIANA HAWKINS .Facility:D3Mylab: 06-29-2022 End: 92-37-7677Jpmijyn encounter procedurePamorales Wolfgang ROSS [facility] Monique start: 36-35-1526enterglextMmbtnb GehlingFacility:[facility] Start: 06-09-2022 End: 45-58-0630ovkymrtofpGmildz GehlingFacility:UTMCStart: 06-03-2022 End: 57-35-2558Illcplnnd department patient visitDOUGRADHA ACHARYAFacility:KSMCStart: 06-01-2022 End: 00-80-2071Ecpwytwaul and management of inpatientDaniel GehlingFacility:[facility] Start: 05-26-2022 End: 28-08-5386dwlmkqqiktKaoeuw GehlingFacility:UTMCStart: 05-26-2022 End: 87-28-1557Gmbekoars for preprocedural laboratory examinationDaniel Gehling Facility:[facility]ITALtart: 59-10-1154ctflzgnjqvBOQAYT CRAMERFacility:Q4Dcmkh: 05-01-2022 End: 63-82-0651nlsdueeodgJJBRDM CRAMERFacility:G7Gqemg: 04-29-2022 End: 37-11-6476vgihchzxdgUHKQTE RODRIGUEZ .Facility:K9Blmud: 04-16-2022 End: 70-13-6126runootkwngBK ARLETH ACHARYA .Facility:Y7Kznmd: 04-07-2022 End: 29-45-3679aqzoeuhkjkCrozvb GehlingFacility:UTMCStart: 03-24-2022 End: 65-64-2557thzcyiejzwLJGMPQEU SELFFacility:UTMCStart: 02-12-2022 End: 07-63-6102qkpnptkvsdNbbpji GehlingFacility:UTMCStart: 01-09-2022 End: 39-15-8085gecyxlctkdYIVLQALD SELFFacility:UTMCStart: 12-26-2021 End: 15-18-3536ahrlrdanfmCZXSGQCF SELFFacility:UTMCStart: 12-09-2021 End: 92-73-0784wasigpoydpIMBKWTAO SELFFacility:UTMCStart: 10-30-2021 End: 90-96-2990dcadlswuquFvsols GehlingFacility:UTMCStart: 10-11-2021 End: 40-24-4430lcxpqjnbzgOzjdac GehlingFacility:UTMCStart: 10-07-2021 End: 69-00-9781jzzyucdjrhXqtbsy GehlingFacility:UTMCStart: 10-06-2021 End: 07-20-8534zogdaqzxfvUhfxwf GehlingFacility:UTMCStart: 08-12-2021 End: 07-51-0010hyazpotjsxRLXIXIXJ SELFFacility:UTMCStart: 2017 End: 85-27-5960YdogrcwzcnMLSY W NIELSENFacility:ENT Spec-NorthStart: 11-18-2017 End: 29-11-6116DgrcwaacfjCLYY W NIELSENFacility:[facility] Spec-NorthStart: 10-28-2017 End: 97-11-8271EmvlgviwlgRlecj Ruth HambleyFacility:[facility] Spec-NorthStart: 10-14-2017 End: 94-94-5054LhjszpangcMIVH W NIELSENFacility:[facility] Spec-TiffinStart: 09-16-2017 End: 10-51-6086YuubpgutooZTMT W NIELSENFacility:[facility] Spec-TiffinStart: 06-24-2017 AmbulatoryERIK W RAFITAELSENFacility:[facility] Spec-TiffinStart: 04-20-2017 End: 85-05-5226WhewnhovqyTBOM W NIELSENFacility:[facility] Procedures DateProcedureProcedure DetailPerforming ClinicianStart: 92-12-3540Yeakheybfq examination knee 1/2 Marjorie PENNINGTON Work Phone: Start: 78-76-3604JAD,APTIMA HPV,AGE GDLNCorey Tano DO Work Phone: Start: 58-57-9093Qtlsudnrybf observation [Identifier] in Cervix by Cyto stainAzucena PENNINGTON Work Phone: Start: 34-19-6033F-ray of left ankleMD Arleth Acharya Work Phone: Start: 17-75-7144Sclzcigrlxd removal of ureteric stent ELIZABETH CHOI Start: 63-37-3414Xzgjdngnttf laser lithotripsy of ureteric calculusDANIELNNIFER STEPH Start: 67-62-7771Tvztjdizqwo removal of ureteric stent Dianaatul HAWKINS Start: 75-93-0534Vviczawzqur insertion of ureteric stentPatrick HAWKINS Start: 16-73-2177Dbwtvebm screenDaniel GehlingComment on above:Performed By: #### [id number] #### [address]AppendectomyPatrick HAWKINS arthroplasty of kneePatrick HAWKINS arthroscopy of kneePatrick HAWKINS Bypass of stomachPatrick HAWKINS CholecystectomyPatrick HAWKINS HysterectomyPatrick HAWKINS Implantation of temporary spinal cord stimulatorPatrick HAWKINS TonsillectomyPatrick HAWKINS Plan of Treatment DateCare ActivityDetailAuthorStart: 09-70-3958Anvyfumzv for malignant neoplasm of cervixNOMS HealthcareStart: 03-21-2026 End: 69-87-2736Crkkpgg encounter procedureNOMS BCP OBStart: 09-11-2025 End: 40-93-6870Ixijwyp encounter nkygjiotp37/02/2025 10:00 AM EST Office Visit [facility] [address] [place] [address] Jr. Nasir Thacker, DO [address] [facility] [place] [address] [facility] OrthopaedicsStart: 08-14-2025 End: 43-74-1494TU Knee - right WO contrastMR knee right wo IV contrast Imaging Routine Internal derangement of right knee Expected: 08/14/2025 (Approximate), Expires: 08/14/2026[facility] Work Phone: Comment on above:Expected: 08/14/2025 (Approximate), Expires: 08/14/2026Start: 08-14-2025 End: 67-75-7712Qxtkjhm encounter /04/2025 10:15 AM EST Office Visit [address] [address] Azucena Villasenor PA [address] [place] [address] Acute pain of right knee (Primary Dx)[facility] OrthopaedicsComment on above:Acute pain of right knee (Primary Dx)Start: 75-36-9235VBWCD-19 Vaccine ( season)COVID-19 Vaccine ( season)[facility] HealthcareStart: 71-81-9562Josowssfz vaccinationSSM Health [facility] Start: 19-62-3618Wxtcpevp identified in Urine by CultureUrine [facility] Hospitaltart: 25-71-6097Pkqqn [facility] Centertart: 03-19-2025 End: 01-56-7229Mdyegqc encounter lpjzuxnli71/09/2025 4:[address] PM EDT Office Visit [facility] [address] [place] [id number] Eduardo Freedman, DO [address] [place] [address] [facility] OBComment on above:ArrivedStart: 03-19-2025 End: 33-56-2518NA Breast - bilateral ScreeningBilateral screening mammogram Imaging Routine Breast cancer screening by mammogram Expected: 03/19/2025 (Approximate), Expires: 05/19/2026[facility] Work Phone: comment on above:Expected: 03/19/2025 (Approximate), Expires: 05/19/2026Start: 01-45-9610Onnljmubc vaccinationFlu vaccine (#1)[facility]Start: 55-02-7039PYSVP-19 Vaccine ( season)COVID- 19 Vaccine ()[facility] SYSTEMStart: 05-28-2023 [facility]tart: 26-34-6901Kjdgh panelLipidsINOVA HEALTH SYSTEMStart: 71-98-9566Gbxkaksmc for malignant neoplasm of breastINOVA HEALTH SYSTEMStart: 88-62-6066DUiG/Tdap/Td vaccine (2 - Td or Tdap) DTaP/Tdap/Td vaccine (2 - Td or Tdap)[facility] SYSTEMStart: 2016 Diabetes screenDiabetes [facility] HospitalStart: 26-08-3862Rryawbjdb for malignant neoplasm of cervixNONY HealthcareStart: 26-62-6550Lfkanmmpo for malignant neoplasm of cervixPap SmearHUNTSMAN MENTAL [facility]ALTH [facility] HealthcareStart: 09-37-8951Kybzvnebo C screeningHepatitis C screenINOVA HEALTH SYSTEMStart: 19-06-7416CEM screeningHIV [facility] HospitalStart: 88-52-8960Zbkwxjiaeg Screen Depression [facility] SystemStart: 93-82-1572Lbsjiyjxe vaccine (1 of 2 - 2-dose childhood series)Varicella vaccine (1 of 2 - 2-dose childhood series)[facility] SYSTEMStart: 88-03-1155Zasgqyzyr B vaccine (1 of 3 - 3- dose series)Hepatitis B vaccine (1 of 3 - 3-dose series)[facility] End: 09-14-1417CF Neck W contrast [facility] Work Phone: Comment on above:1 Occurrences starting 05/01/2024 until 05/01/2024Iron binding capacity [Mass/volume] in Serum or PlasmaAshtabula County Medical CenterIron saturation [Mass Fraction] in Serum or Plasma [facility] CenterTHIN PREP TIS PAP AND HR HPV DNATHIN PREP TIS PAP AND HR HPV DNA Pathology and Cytology Routine Well woman exam with routine gynecological exam Ordered: 03/19/2025NON[facility] HealthcareComment on above:Ordered: 03/19/2025 Immunizations Immunization DateImmunizationNotesCare OwnrxummDncgqxrz49-49-3157glmjsmsgb virus vaccine, unspecified formulationDANIELPayMinsDAVION STEPH [facility]10-19-2022SARS-CoV-2 (COVID-19) mRNAMUL.ORD!c54249TJNSLNDA STEPH [facility]12-29-2021SARS-CoV-2 (COVID-19) mRNA BNT-162b2 StarShooter [facility]04-22-2021SARS-CoV-2 (COVID-19) mRNA BNT-162b2 [employer] [facility]04-01-2021SARS-CoV-2 (COVID-19) mRNA BNT-162b2 [employer] [facility]10-01-2020influenza virus vaccine, unspecified formulationMugenUp [facility]09-23-2020influenza virus vaccine, unspecified formulationMugenUp [facility]10-08-2019influenza virus vaccine, unspecified formulationPaIngageapp [facility]09-28-2018influenza virus vaccine, unspecified formulationPaIngageapp [facility]03-23-2016pneumococcal polysaccharide vaccine, 23 valentPaIngageapp [facility]12-08-2013influenza virus vaccine, unspecified formulationMugenUp [facility]09-30-2011tetanus toxoid, reduced diphtheria toxoid, and acellular pertussis vaccine, adsorbedPaIngageapp [facility] Payers DatePayer CategoryPayerPolicy [id number] Health Insurance [id number]-[id number] X[id number] [id number] 2..1.209550.3.57[id number] 2..1.664529.3.57[id number] ..1.227181.3.579.[id number] 2..1.564286.3.579.[id number] 2..1.634940.3.579.2.12794-96-6394Mbfyvgh96976118 2.16.840.1.402519.3.579.2.82115-38-6181Txqbioo12791782 2.840.1.848990.3.579.2.95038-03-9865Ypylmja88799175 2.840.1.749315.3.579.2.25880-60-1430Xytdppa90348622 2.840.1.894010.3.579.2.12789-73-2093Mctfnnv90958271 2.840.1.048348.3.579.2.51441-50-0045Qfitmnb35138504 2.0.1.735924.3.579.2.35130-15-3454Rkawdtp47319024 2..1.914576.3.579.2.00734-11-7833Fcburgk77246831 2.0.1.715462.3.579.2.15347-63-8873Horvmam00394933 2..1.127587.3.579.2.28590-10-6196Neygbia38116516 2.840.1.006738.3.579.2.77368-64-6566Dxxgfmw71063862 2..1.329877.3.579.2.98747-81-1271Fnntdst7119469 2.840.1.374303.3.579.2.99906-70-2068Zvxyjtx9184253 2.840.1.828498.3.579.2.25084-25-3028Ejrkjtq0446438 2.840.1.158161.3.579.2.45245-44-0246Hnwmowf2463893 2.840.1.709768.3.579.2.76005-83-1089Sdndskz6225251 2.840.1.787068.3.579.2.06338-46-3253Ogrhvsx4700794 2.840.1.265978.3.579.2.92470-73-8798Erytiis3295450 2.840.1.682475.3.579.2.89016-86-5539Gujaelg8599509 2.0.1.798572.3.579.2.92822-49-1184Jhhozxy4266675 2.0.1.508176.3.579.2.00941-30-4219Xxoywdl2385543 2..1.724934.3.579.2.84954-12-5127Cwmjmrv3368052 2..1.302790.3.579.2.48066-43-5443Ekyqcou8378009 2..1.898421.3.579.2.40294-51-9247Xleskbl4384024 2..1.671668.3.579.2.91202-09-3539Eeuoinp5947809 2.0.1.208065.3.579.2.32141-44-1849Sfknxnh1943691 2..1.847151.3.579.2.40464-98-3325Jhvktyy1600036 2.0.1.200889.3.579.2.13048-94-2136Acgrjym8625736 2..1.476298.3.579.2.09608-64-3828Tgwltcf2126753 2.840.1.969634.3.579.2.54187-38-1401Nqudwms26901059 2.0.1.940006.3.579.2.42714-04-6060Pfglhcp735494931 2.840.1.116385.3.579.2.24915-23-9563Zpcspxr06918859 2.840.1.111727.3.579.2.73999-38-8524Obqcugp408459580 2.16.840.1.850888.3.579.2.232535-17-4335Yzewyvz677922120 2.840.1.130307.3.579.2.928090-26-1769Dumkaff654983850 2.840.1.499442.3.579.2.581090-63-9599Gkiavpw230621949 2.840.1.216806.3.579.2.276259-46-6845Bzewouf78030153 2.0.1.346909.3.579.2.097539-30-3623Edhpgaf79648445 2.0.1.188205.3.579.2.978239-39-3247Irqmkia44551306 2.0.1.321105.3.579.2.153858-69-3576Khfn-dcr625211976GajzysnQqjobqfvqtk [id number] i83813s8-e4x6-7230-l855-n1a79rv2963jJchdizn18843392 2.0.1.940738.3.579.2.531 Social History DateTypeDetailFacilityStart: 06-29-2022 End: 94-64-5433Biptwxi smoking statusEx-smoker (finding)[facility] Campustart: 04-18-2024 End: 54-22-0348Puw Assigned At [facility] CampusFeBryan [facility] start: 89-59-8823Oks Assigned At [facility] Hospitaltart: 95-44-6320Tsltqnm smoking statusNeverExecutive [facility] End: 06-25-9664Fjroknt of tobacco useCurrent smokerINOVA HEALTH SYSTEM End: 92-64-6543Mecntow of tobacco useCigarette SmokerINOVA HEALTH SYSTEM History of tobacco usePassive smokerINOVA HEALTH SYSTEMStart: 04-18-2024 End: 29-34-9679Gpzbwvy use and exposureSmokeless tobacco non-userINOVA HEALTH SYSTEMStart: 91-13-8045Kbtottc intakeCurrent non-drinker of alcohol (finding)[facility] SYSTEMStart: 04-18-2024 End: 99-75-6877Avyhdgb of Social functionINOVA HEALTH SYSTEMStart: 55-52-5360Iez Assigned At BirthNot on fileINOVA HEALTH SYSTEMTobacc smoking status NHISTobacco smoking consumption unknownNOMS HealthcareSexFemale (finding)[facility] Hospitaltart: 94-38-4420Pcckfjx smoking status NHISNever smoked tobaccoNOMS Healthcare Functional Status YdlpAdzvurmvcuRiyvmqNrtpsvwc98-09-2025Wqdutyvhhy StatusN/AExecutive [facility]01-02-2024Functional StatusN/AFOhioHealth [facility]12-04-2023Functional StatusN/AExec[facility]09-19-2022Functional StatusN/AExec[facility] Clinical Notes 06-16-2022 to 08-15-2025 Note Date & DaaqHmexVbbsbkrr42-07-6248 Telephone encounter Note* Telephone Encounter - Genesis Kern - 08/15/2025 1:18 PM EST Left another message to give me a call back, did let her know that we needed a copy of her card, faustoramiro can have them scan it at the Imaging Location [facility] Qonehmgbmp21-93-8609 Miscellaneous Notes* Telephone Encounter - Genesis Kern - 08/15/2025 1:18 PM EST Left another message to give me a call back, did let her know that we needed a copy of her card, faustohe can have them scan it at the Imaging Location * Telephone Encounter - Genesis Kern - 08/14/2025 12:56 PM EST Patient said that she is returning our call about having a card for her device? Does she need to bring the card down for us to scan? Please advise documented in this encounterSSM Health Cardinal Glennon Children's HospitalHbxuufvxfn29-02-2168 Telephone encounter Note* Telephone Encounter - Genesis Kern - 08/14/2025 12:56 PM EST Patient said that she is returning our call about having a card for her device? Does she need to bring the card down for us to scan? Please advise [facility] Children's [id number] History of Present illness Narrative* ADITI Catalan [...] TODAY RT KNEE EPIC 08/14/25 PAIN MGMT [facility] FOR [facility] KNEE HX RT KNEE [...] advised against, although Motrin is taken occasionally. Miami is also used. An implanted spine stimulator, [...] requiring urgent evaluation. Visit was preformed using [employer]Way-via680 speech recognition. documented in this encounterSSM Health Cardinal Glennon Children's HospitalDllerumxjb98-06-2427 [place] [address] Subjective Patient ID: Elvi Moore is a [...] her anterior knee pain. She continues on Miami 7.5/325 QID and Lyrica 100 BID with moderate benefit. She endorses the medication does help her be functional and to get through her day. She denies adverse side effects to the medications. 07/24/25 CC: Chief Complaint Patient presents with Med Management Refill Miami Pill Count Follow-up SCS Pain Assessment Pain [...] retention loop lost. She is working with [employer] to aid in programming options but overall [...] 1. Interventions: None today 2. Medications: Continue Miami 7.5/325mg TID PRN for severe pain 8-10 [...] (CSA) with our o (more content not included)...[facility]07-15-2025 [place] [address] Subjective Patient ID: Elvi Moore is a 44 y.o. female. 44 year old female here for follow up for medication management. She rates her pain 5/10 in her left knee. She continues on [place] 7.5/325 TID and Lyrica 100 mg BID with good benefit. She denies adverse side effects. She is getting better coverage of pain relief with the increased dose of medication. She follows with Dr. Burkett. She reports getting great relief from her SCS but does not cover all areas of her knee pain. 04/24/25 CC: Chief Complaint Patient presents with Med Management Refill [place] and Lyrica Pill count No bottle Follow-up [...] retention loop lost. She is working with [employer] to aid in programming options but overall [...] 1. Interventions: None today 2. Medications: Continue [place] 7.5/325mg TID PRN for severe pain 8-10 [...] patient understands the ri (more content not included)...[facility]06-09-2025 History of Present illness Narrative* Magdalena Adam NP - 03/19/2025 4:00 PM EDT Reason for [...] nursing note reviewed. Exam conducted with a consolidator present. Vitals: Estimated body mass index is [...] of: Eduardo Freedman DO documented in this encounterSSM Health Cardinal [facility] Children's [id number] [place] [address] Subjective Patient ID: Elvi Moore is a [...] retention loop lost. She is working with [employer] to aid in programming options but overall [...] GTB Med Refill Lyrica Med Management Refill [place] Pill Count No bottle Pain Assessment Pain [...] 1. Chronic, continuous use of opioids HYDROcodone-acetaminophen (Mi[place]) 7.5-325 mg tablet 2. Complex regional pain syndrome type 1 of left lower extremity HYDROcodone-acetaminophen (Mi[place]) 7.5-325 mg tablet 3. Presence of neurostimulator HYDROcodone-acetaminophen ([place]) 7.5-325 mg tablet 4. S/P left knee arthroscopy 5. Neuralgia and neuritis Discussed chronic pain, medication use, treatment goals. Medication risk and benefits discussed. The Spine Diagram and Test results were used to explain the condition. PLAN: 1. Increase [place] 7.5/325mg TID PRN for severe pain 8-10 [...] and the patien (more content not included)... [facility]03-17-2025 NoteOrthopedic Surgery Subjective Edema, Follow-up, and [...] sees pain management and is currently taking [place] every 8 hours and Lyrica. She also [...] throughout Stable to ante (more content not included)...[facility] 10-19-2024 [place] [address] Subjective Patient ID: Elvi Moore is a [...] retention loop lost. She is working with [employer] to aid in programming options but overall [...] extremity pregabalin (Lyrica) 50 mg capsule HYDROcodone-acetaminophen ([place]) 5-325 mg tablet DULoxetine (Cymbalta) [address] capsule 4. Other chronic postprocedural pain pregabalin (Lyrica) 50 mg capsule HYDROcodone-acetaminophen ([place]) 5-325 mg tablet 5. Presence of neurostimulator Discussed chronic pain, medication use, treatment goals. Medication risk and benefits discussed. The Spine Diagram and Test results were used to explain the condition. PLAN: 1. Continue [place] 5/325mg TID PRN for severe pain 8-10 [...] All questions are ans (more content not included)...[facility]05-28-2024 Hospital Discharge instructions Patient Education 03/07/2024 [...] include: ?8 oz (237 mL) of milk, pgfzzhn-tnmguzgtikup-tqwua milk, and calcium- fortifiedfruit juice. Calcium-fortified means [...] ?Spinach (cooked), rhubarb, beets, sweet potatoes, and Luxembourger chard. ?Peanuts. ?Potato chips, trinidadian fries, and baked potatoes with skin on. ?Nuts and nut products. ?Chocolate. If you regularly take a diuretic medicine, make sure to eat at least 1 or 2 servings of fruits or vegetables that are high in potassium each day. These include: ?Avocado. ?Banana. ?Dora, prune, carrot, or tomato juice. ?Baked potato. [...] magnesium, fish oil, or vitamin B6. Take qdsg-nhs-uklyuqd and prescription medicines only as told by [...] Casseroles. Pizza. Lasagna. Frozen meals. Potato chips. Bruneian fries. The items listed above may not [...] provider. Document Revised: 01/07/2023 Document Reviewed: 01/07/2023 [employer] Patient Education 2022 [employer]. Follow Up Care 01/26/2024 10:43:28 With:ELIZABETH CHOI PA-C, URL Address: [address] [place] [address] [phone] When: Unknown [facility] 01-02-2024 Hospital Discharge instructions Patient Education [...] Address: [facility] [address] [place] [address]- Business (1) When:01/11/2024 10:36:33 Comments:With a stone metabolic workup [facility]12-04-2023 Hospital Discharge instructions Patient Education 09/13/2023 12:55:24 [...] including vitamins, herbs, eye drops, creams, and vvlm-lgo-crpoxab medicines. Any problems you or family members [...] provider tells you to take them. Taking nxsr-ooz-ikigwyp medicines, vitamins, herbs, and supplements. Tests You [...] Follow these instructions at home: Medicines Take pphu-hzt-qebradv and prescription medicines only as told by [...] provider. Document Revised: 06/10/2022 Document Reviewed: 05/09/2021 [employer] Patient Education 2022 [employer]. 09/13/2023 12:55:19 Hematuria, Adult Hematuria, Adult Hematuria [...] Follow these instructions at home: Medicines Take weqr-cpv-lqkjzoa and prescription medicines only as told by [...] or the blood stops without treatment. Take fhrl-eip-jltllae and prescription medicines only as told by your health care provider. Drink enough fluid to keep your urine pale yellow. This information is not intended to replace advice given to you by your health care provider. Make sure you discuss any questions you have with your health care provider. Document Revised: 05/28/2021 Document Reviewed: 05/28/2021 [employer] Patient Education 2022 [employer]. Follow Up Care 08/20/2023 11:43:21 With:ROSS GENTILE, Diana Goss, URL Address: [facility] [address] , [place] [address]- [phone] When: Unknown Comments:sched cysto [facility] 03-27-2023 Hospital Discharge instructions Patient Education 01/04/2023 [...] include: ?Spinach. ?Rhubarb. ?Beets. ?Potato chips and trinidadian fries. ?Nuts. If you regularly take a diuretic medicine, make sure to eat at least 1 2 fruits or vegetables high in potassium each day. These include: ?Avocado. ?Banana. ?Dora, prune, carrot, or tomato juice. ?Baked potato. [...] Casseroles. Pizza. Lasagna. Frozen meals. Potato chips. Bruneian fries. Summary You can reduce your risk [...] 01/22/2012 Document Revised: 01/17/2020 Document Reviewed: 09/07/2017 [employer] Patient Education 2019 [employer]. Follow Up Care 10/29/2022 14:23:18 With:ROSS GENTILE, Diana Goss, URL Address: [facility] [address] , [place] [address]- When: Unknown [facility] 09-19-2022 Evaluation + Plan note Diagnostic Tests Pending * [facility] Fish and Urine Cyto ([facility]) 06/29/22 [facility] 09-19-2022 Hospital Discharge instructions Patient Education 06/29/2022 [...] Follow these instructions at home: Medicines Take pqdy-nyb-rgpybrf and prescription medicines only as told by [...] or the blood stops without treatment. Take scgj-xrh-inakoby and prescription medicines only as told by your health care provider. Drink enough fluid to keep your urine clear or pale yellow. This information is not intended to replace advice given to you by your health care provider. Make sure you discuss any questions you have with your health care provider. Document Released: 09/27/2006 Document Revised: 02/21/2020 Document Reviewed: 10/30/2017 [employer] Patient Education 2020 [employer]. Follow Up Care 05/06/2022 15:50:29 With:ROSS GENTILE, Diana Goss URL Address: [facility] [address] [place] [address]- [phone] When: Unknown [facility] NoteMR#: [id number] I [facility] Pt. Name: Elvi Moore Admitted: 06/01/2022 [...] documentation from me. Date Dict: 06/16/2022/10:36 A/Alvin Cavazso MD Date Trans: 06/16/2022 02:27 P/mmo [id number] cc: Arleth Acharya M.D. [address], [place] [address]djPro[facility] + [facility] note Future Appointments Appointment Date:01/11/2023 01:45:00 PM Scheduled Provider:Diana HAWKINS MD Location:[facility] Appointment Type:URO Office Visit [facility] evaluation + Plan note Future Appointments Appointment Date:02/07/2024 10:15:00 AM Scheduled Provider:Diana HAWKINS MD Location:[facility] Work Phone: Evaluation note* Diagnosis Onset Date Resolution Status Left ankle sprain noneactive [facility] Work Phone: Evaluation note* Diagnosis Pleomorphic adenoma of parotid gland documented in this encounter [facility] note* Diagnosis Well woman exam with routine gynecological exam Routine gynecological examination Breast cancer screening by mammogram documented in [facility] encounter [facility]* Diagnosis Acute pain of right knee- Primary Internal derangement of right knee [facility] Narrative No data available for this section [facility] progress note No data available for this section [facility] reason for referral (narrative)No reason for referral information [facility] Work Phone: Summary Purpose Family History No Family History Records Found Relationship Condition Age at Onset Recorded Date/T norman sister Malignant neoplasm of breast Unknown Not SpecifiedNeoplasm of brainUnknown Relationship Condition Age at Onset Recorded Date/T norman sister Malignant neoplasm of breast Unknown motherNeoplasm of brainUnknown Advance Directives No Advanced Directives Records Found [...] NECK W CONTRAST Bill Brown MD [address] [place] [address] Referral IDStatusReasonStart DateExpiration DateVisits RequestedVisits [id number]/22/202410/19/202411 Additional Source Comments INFORMATION SOURCE (unrecogn ized section and content) DATE CREATED AUTHOR 03/31/2018 [facility] DATE CREATED AUTHOR AUTHOR'S ORGANIZ ATION 06/23/2022 [facility] DATE CREATED AUTHOR AUTHOR'S ORGANIZ ATION 01/28/2023 [facility] DATE CREATED AUTHOR AUTHOR'S ORGANIZ ATION 05/04/2024 [facility] DATE CREATED AUTHOR AUTHOR'S ORGANIZ ATION 07/19/2024 [facility] DATE CREATED AUTHOR AUTHOR'S ORGANIZ ATION 05/06/2025 [facility] DATE CREATED AUTHOR AUTHOR'S ORGANIZ ATION 08/04/2025 [facility] DATE CREATED AUTHOR AUTHOR'S ORGANIZ ATION 08/15/2025 [facility] DATE CREATED AUTHOR AUTHOR'S ORGANIZ ATION 08/19/2025 [facility] DATE CREATED AUTHOR AUTHOR'S ORGANIZ ATION 08/24/2025 [facility] Care Team (unrecognized sect ion and [...] Primary Care Provider, Referring Pr ovider Active JanyMonie Watson ProviderActive Team Status: Inactive Member Role Status Dates Harry Pettit MD Attending Provider Active Star t: March 22, 2024 End: March 22, 2024Team MemberRelationshipSpecialtyStart DateEnd Date Arleth Acharya MD [address] [place] [address] PCP - General12/30/14 Team Status: Inactive Member Role Status Dates Arleth Acharya MD Attending Provider Active Sta rt: May 04, 2025 End: May 04, 2025Team MemberRelationshipSpecialtyStart DateEnd Date Unallocated, Ganesh Jimenez MD [address] [place] [id number] PCP - [facility] Jyvfzciq16/3/25Team MemberRelationshipSpecialtyStart DateEnd Date Unallocated, Ganesh Jimenez MD [address] [place] [id number] PCP - [facility] Fjkvlaxs49/3/25Team MemberRelationshipSpecialtyStart DateEnd Date Unallocated, Ganesh Jimenez MD [address] [place] [id number] PCP - [facility] Iytecrlr71/3/25 Goals (unrecognized section and content) Goals may be documented in a n alternate section Reason for Visit (unrecogniz ed section and content) SpecialtyDiagnoses / ProceduresReferred By ContactReferred To ContactRadiology Diagnoses Pleomorphic adenoma of parotid gland Procedures CT SOFT TISSUE NECK W CONTRAST Bill Brown MD [address] [place] [id number] Referral IDStatusReasonStart DateExpiration DateVisits RequestedVisits [id number]/22/202410/19/176534RtndjwGuvpdzluKdug Women Visit ReasonCommentsPainReasonOnset DateCommentsPatient returning our call about a card for her device?08/14/2025 FOR RECORDS PERTAINING TO PATIENTS WHO ARE [...] BE BASED ON THE PRIMARY CLINICAL RECORDS. [email or web address]. provides no warranty or guarantee of the accuracy or completeness of information in this document.
--- NOTE | 2025-09-05 07:56 | MM_ITS ---
Patient Name: KRISTINE MADDEN MR#: [id number] : 1980 Exam Date: 09/05/2025 Ordering Doctor: DR ARLETH ACHARYA . RADIOLOGY REPORT PROCEDURE: MM TOMOSYNTHESIS SCREENING BI COMPARISON: [facility] MAMM DIAGNOSTIC 3D MICHAEL CAD, 01/03/2021. [facility] MAMM MICHAEL DIAG W CAD, 10/21/2017. MG MAMM MICHAEL SCRN W CAD DIG, 06/10/2016. INDICATIONS: Screening Calculator Name NCI Breast Cancer Risk Assessment Tool 5 Year Breast Cancer Risk 1.40% Lifetime Breast Cancer Risk 18.30% Personal Breast Cancer No Personal Ovarian Cancer No Treatments None Family Cancers Sister with breast cancer at age 32; Father with brain cancer at age 45. LOCATION: [facility] BREAST COMPOSITION: There are scattered areas of fibroglandular density. FINDINGS: DIAGNOSTIC CATEGORY 1--NEGATIVE. RIGHT BREAST: No significant suspicious finding. LEFT BREAST: No significant suspicious finding. RECOMMENDATIONS: ROUTINE MAMMOGRAM AND CLINICAL EVALUATION IN 12 MONTHS. Dictated by: Ortiz Justice DO on 09/05/2025 at 10:48 Approved by: Ortiz Justice DO on 09/05/2025 at 10:51
== END 2025-09-05 07:46 | disposition home or self-care (01) ==
LOC: MAMMO 07:46
PROVIDERS: PCP Family Medicine; Visit Provider Family Medicine
DX: Z96.60 Presence of unspecified orthopedic joint implant (principal); Z12.31 Encounter for screening mammogram for malignant neoplasm of breast; Z80.3 Family history of malignant neoplasm of breast; Z80.8 Family history of malignant neoplasm of other organs or systems; M81.0 Age-related osteoporosis without current pathological fracture; M85.88 Other specified disorders of bone density and structure, other site
CPT/HCPCS: 77063; 77067; 77080